=== PATIENT | male | born 1970 | race Caucasian/White ===

== ENCOUNTER 2021-11-07 02:27 | Emergency (ER) | payer MEDICARE, MEDICAID, SELFPAY ==
--- NOTE | ~2021-11-07 | CT_ITS ---
EXAMINATION: CT brain wo con DATE: 11/07/2021 02:59 INDICATION: Headache. TECHNIQUE: Computed tomography (CT) of the head was performed without intravenous contrast. The mA wa s adjusted according to patient size. Iterative reconstruction technique was employed. The dose-lengt h product was 681.00 mGy-cm. COMPARISON: None FINDINGS: There is an infarct in the left temporal parietal occipital region. There is no abnormal ma ss lesion or intracranial hemorrhage. The ventricles are normal in size. The orbits are normal. There are old fracture deformities of the nasal bones. There is mild mucosal thickening in the paranasal s inuses. The mastoid air cells are normal. IMPRESSION: 1. Age-indeterminate infarct in the left temporal parietal occipital region. Reviewed, dictated and finalized at location A.
[2021-11-07 02:24] VITALS: BP 137/73; PULSE 76; RESP 16; TEMP 36.3; O2SAT 98
--- NOTE | 2021-11-07 02:35 | ECG_ITS ---
Measurements Intervals [place] Rate: 81 P: 30 ME: 151 QRS: 39 QRSD: 90 T: 27 QT: 382 QTc: 445 Interpretive Statements SINUS RHYTHM POSSIBLE LEFT ATRIAL ENLARGEMENT BASELINE WANDER- I, II, III, AVR, AVL, AVF, V2, V4-V6 BORDERLINE ECG Electronically Signed On 11-07-2021 5:42:04 CDT by Johnathon Hair D.O.
--- NOTE | 2021-11-07 02:38 | ED.HA ---
HPI - Headache General Chief Complaint: Headache Stated Complaint: anguiano x 5 days refusing schizophrenic meds Time Seen by Provider: 11/07/21 02:35 Source: patient, EMS and RN notes reviewed History of Present Illness HPI Narrative: Patient was sent over from a [facility] and rehab facility. He has declined his Seroquel for approximately 2 weeks and night he was more combative with staff and also planing of a headache for 5 days. Staff is having time controlling the patient so they gave him IM Haldol and transported to the ER for further evaluation. Patient does report a headache for the past 5 days no clear aggravating or alleviating factors no nausea no vomiting denies focal numbness or weakness. Related Data Allergies Allergy/AdvReac Type Severity Reaction Status Date / Time No Known Allergies Allergy Verified 11/07/21 02:39 Review of Systems Review of Systems: CONSTITUTIONAL: Denies fever, chills, or sweats. EYES: Denies visual changes, redness, or discharge. ENT: Denies rhinorrhea, congestion, sore throat, or otalgia. CARDIOVASCULAR: Denies chest pain, palpitations, or edema. RESPIRATORY: Denies cough or dyspnea. GASTROINTESTINAL: Denies abdominal pain, nausea, vomiting, or diarrhea. GENITOURINARY: Denies dysuria or hematuria. SKIN: Denies rash or itching. MUSCULOSKELETAL: Denies back pain, joint pain, or myalgia. NEUROLOGIC: Denies numbness, dizziness, or weakness. PSYCHIATRIC: Denies anxiety or depression. ROS unobtainable: Yes other (Review of systems may be limited as patient was somnolent) [facility] Past Medical History Medical History (Updated 11/07/21 @ 04:03 by Benson Coelho MD) Schizophrenia Social History Social History (Updated 11/07/21 @ 02:47 by Benson Coelho MD) Living arrangements: other Additional living arrangements comments: Lives at [facility] rehab Exam Narrative: GENERAL: Well-appearing, well-nourished, and in no acute distress. HEAD: Normocephalic, atraumatic. EYES: PERRLA and EOMI. ENT: Nares clear, no rhinorrhea or epistaxis. Mucous membranes moist. NECK: Supple. No masses. No JVD CHEST: Clear to auscultation. No respiratory distress. No wheezes rales or rhonchi HEART: Regular rate and rhythm. No murmur heard. Normal peripheral pulses. ABDOMEN: Soft, nontender, nondistended, normal active bowel sounds. EXTREMITIES: Normal range of motion. No edema. SKIN: Warm, dry, no rash. NEURO: No focal deficits. Somnolent but answering questions and following commands PSYCH: Normal mood and affect. Course Reevaluation(s) Reevaluation #1: Patient remains sedated but arousable. Patient is appropriate for continued metabolization at his nursing and rehab facility which provided the sedation. Date: 11/07/21 Time: 04:00 Vital Signs Vital signs: Vital Signs Temperature 36.3 C L 11/07/21 02:24 Pulse Rate 76 11/07/21 02:24 Respiratory Rate 16 11/07/21 02:24 Blood Pressure 137/73 11/07/21 02:24 Pulse Oximetry 98 11/07/21 02:24 Temperature 36.3 C L 11/07/21 02:24 Pulse Rate 85 11/07/21 04:19 Respiratory Rate 15 11/07/21 04:19 Blood Pressure 135/69 11/07/21 04:19 Pulse Oximetry 96 11/07/21 04:19 MDM - Headache MDM Narrative Medical decision making narrative: H&P as above, vss, pt looks clinically well, exam without focal neurological deficits or evidence of significant trauma, labs with thrombocytopenia and hematuria hematuria may be related to catheterization, img without acute process, additional labs/img considered, symptomatic relief available as needed, on reevaluation pt continues to looks clinically well. Headache is not consistent with intracranial hemorrhage, mass meningitis, encephalitis., Patient's sedated state likely related to IM Haldol prior to transportation to the ER. Plan to tx/monitor as op w/ pcm f/u findings/plan discussed with pt, pt agree/comfortable with plan, return precautions given Lab Data Result diagram
--- NOTE | 2021-11-07 02:56 | PC.NURSE ---
Pt to CT via stretcher at this time
[2021-11-07 02:57] LABS: Hematocrit 33.6 % (42.0-52.0); Hemoglobin 11.3 g/dL (14.0-18.0); Mean Corpuscular HGB Conc 33.6 g/dl (32-36); Mean Corpuscular Hemoglobin 31.7 pg (26-34); Mean Corpuscular Volume 94.4 fl (80-100); Mean Platelet Volume 10.1 fl (7.4-10.4); Platelet Count Result 88 k/mm3 (150-375); Red Blood Count 3.56 M/mm3 (4.6-6.20); Red Cell Distribution Width 14.1 % (11.5-14.5); White Blood Count 3.7 K/mm3 (4.5-10.0)
[2021-11-07 03:06] LABS: Alanine Aminotransferase 41 U/L (6-50); Alkaline Phosphatase 164 U/L (38-126); Anion Gap 6 mmol/L (8-16); Aspartate Amino Transferase 74 U/L (17-59); Bilirubin,Total 0.7 mg/dL (0.2-1.3); Blood Urea Nitrogen 13 mg/dL (9-20); Calcium 8.1 mg/dL (8.4-10.2); Carbon Dioxide 25 mmol/L (22-30); Chloride 102 mmol/L (98-107); Estimated CRCL calculation 116 ml/min; Estimated Glomerular Filt Rate > 60; Glucose 186 mg/dL (65-110); Potassium 3.3 mmol/L (3.4-5.0); Sodium 133 mmol/L (137-145)
[2021-11-07 03:09] LABS: Anisocytosis 1+ (NORMAL); Band Neutrophils Percent 8 % (0-6); Eosinophils Absolute Manual 0.07 K/mm3 (0.02-0.5); Eosinophils Percent Manual 2 % (0-4); Lymphocytes Absolute Manual 1.03 K/mm3 (1.1-4.5); Monocytes Absolute Manual 0.44 K/mm3 (0.1-0.90); Monocytes Percent Manual 12 % (3-9); Neutrophils Absolute Manual 2.14 K/mm3 (1.3-6.7); Neutrophils Percent Manual 50 % (46-73); Ovalocytes 1+ (NORMAL); Platelet Estimate Decreased (Adequate); Total Cells Counted 100
[2021-11-07 03:37] LABS: Appearance Urine Clear (Clear); Bilirubin Urine Negative (Negative); Blood Urine 3+ (Negative); Glucose Urine UA Negative (Negative); Ketones Urine Negative (Negative); Leukocyte Esterase Ur Negative LEU/UL (Negative); Nitrate Urine Negative (Negative); Protein Urine 1+ mg/dL (Negative); Specific Grav Ur 1.015 (1.001-1.035); Urobilinogen Urine 0.2 mg/dL (<2.0)
[2021-11-07 03:41] LABS: Bacteria Urine Trace /hpf; Mucus Urine Rare /lpf; RBC Urine 51-75 /hpf (0-2)
[2021-11-07 03:44] LABS: Add Urine Microscopic? YES; Color Urine Dark Yellow (Yellow)
[2021-11-07 04:19] VITALS: BP 135/69; PULSE 85; RESP 15; O2SAT 96
--- NOTE | 2021-11-07 16:01 | PCCCNOTE ---
Late entry: Approached by bedside REJI Saavedra that patient did not have transportation back to facility. Patient is from [place], called to contact Courtney with no answer, called to main facility number no answer x2 attempts, called to Shanna who states that she is on vacation, she states that she will have someone to call me. Called back to main facility number and agriculture instructor advises that their van is on the way to [place] and they do not have additional van. Phone called received from Courtney she confirms that van is on the way to [place] but will see about family or alternatives. Courtney calls neonatal intensive care unit nurse back states that the sister has covid and cannot pick him up and mother works at [employer] and is at work and would not be able to pick him up until 6pm, there is no one else at the facility that can pick him up. Advised that we will give him a cab voucher. Courtney will have staff look out for him. Spoke with patient, he feels comfortable going in a cab, asked Dr. Pérez and he states that there is nothing physically wrong with him. Called back to Courtney, asked if she would like the ER note for the DIGITAL COLOR PRESS OPERATOR at the facility and she agrees that it would be helpful. Corporate Physical Security Supervisor to send. Cab voucher given to Bedside REJI Saavedra.
== END 2021-11-07 04:26 ==
PROVIDERS: Emergency Provider Emergency Medicine; PCP Internal Medicine
DX: R51.9 Headache, unspecified (principal); D69.6 Thrombocytopenia, unspecified; R31.9 Hematuria, unspecified; F20.9 Schizophrenia, unspecified; R94.31 Abnormal electrocardiogram [ECG] [EKG]
CPT/HCPCS: 36415; 51701; 70450; 80053; 81001; 85025; 93005; 99284

== ENCOUNTER 2021-11-07 10:22 | Emergency (ER) | payer MEDICARE, MEDICAID, SELFPAY ==
--- NOTE | ~2021-11-07 | CT_ITS ---
EXAMINATION: CTA brain carotid DATE: 11/07/2021 11:48 INDICATION: Cerebral vascular accident. TECHNIQUE: Computed tomographic angiography (CTA) of the head was performed without and with 100 mL O mnipaque 300 intravenous contrast. CTA of the neck was performed with intravenous contrast. Automated exposure control and iterative reconstruction technique were employed. The dose-length product was 1 714.27 mGy-cm. Maximum intensity projection and volume rendered 3D-reconstructions were created by denisse iyer technologist on a separate workstation. COMPARISON: Head CT 2:58 AM FINDINGS: HEAD CTA: There is an infarct in left temporal parietal occipital region. There is asymmetric enlarge ment of trigone of left lateral ventricle. There is no intracranial hemorrhage or abnormal mass lesio n. The orbits are normal. There are old fracture deformities of the nasal bones and left nasal proces s of maxilla. The mastoid air cells are normal. The paranasal sinuses are clear. The orbits are katie l. Right vertebral artery is dominant. There is no significant stenosis of basilar artery or the post erior cerebral arteries. There is no significant stenosis of the intracranial internal carotid arteri es or anterior or middle cerebral arteries. Anterior communicating artery is normal. Posterior commun icating arteries are not identified. There is no aneurysm. NECK CTA: There are no pathologically enlarged lymph nodes. There is no significant stenosis of the v ertebral arteries. There is plaque in the proximal internal carotid arteries. There is 0% stenosis of the proximal right internal carotid artery relative to normal distal artery lumen diameter (NASCET c riteria). There is 0% stenosis of the proximal left internal carotid artery relative to normal distal artery lumen diameter. There is severe cervical spondylosis. There is extensive dental disease. IMPRESSION: 1. Infarct in left temporal parietal occipital region. Mild asymmetric enlargement of trigone of left lateral ventricle suggests this finding may be chronic. 2. No aneurysm or significant intracranial arterial stenosis. 3. 0% stenosis of the proximal internal carotid arteries relative to normal distal artery lumen diame ters (NASCET criteria). 4. Extensive dental disease. Reviewed, dictated and finalized at location A. IMPRESSION: 1. Infarct in left temporal parietal occipital region. Mild asymmetric enlargem ent of trigone of left lateral ventricle suggests this finding may be chronic. 2. No aneurysm or significant intracranial arterial stenosis. 3. 0% stenosis of the proximal internal carotid arteries relative to normal dis abhi artery lumen diameters (NASCET criteria). 4. Extensive dental disease.
[2021-11-07 10:26] VITALS: PULSE 99; RESP 18; TEMP 36.4; O2SAT 100
--- NOTE | 2021-11-07 10:59 | ED.GENADULT ---
HPI - General Adult General Chief complaint: Recheck/Abnormal Lab/Rx Stated complaint: follow up ct Time Seen by Provider: 11/07/21 10:47 Source: RN notes reviewed History of Present Illness HPI narrative: Patient presents emergency department from [facility] via EMS for possible stroke. The patient has been having headaches for the past 5 days states headaches are in the posterior and superior scalp and worse with movement of his head. Patient also been noted to be refusing some of his medications at the facility. Patient states he does not want to take his medications because they make him sleepy. Patient been seen in emergency room last night had a CT scan is initially read as negative but was over read today as showing an age-indeterminate infarct after his PCP was called they had had the patient transferred back for further evaluation. Patient denies any numbness or weakness of the extremities denies any chest pain shortness of breath or any other symptoms Related Data Allergies Allergy/AdvReac Type Severity Reaction Status Date / Time No Known Allergies Allergy Verified 11/07/21 02:39 Review of Systems Review of Systems: Gen.: Denies fevers or chills Eyes: Denies eye pain or visual change ENT: Denies congestion Respiratory: Denies shortness of breath or cough CV: Denies chest pain or palpitations GI: Denies abdominal pain nausea, emesis or diarrhea Musculoskeletal: Denies back pain or muscle pain Neuro: See HPI Skin: Denies rash Except as documented, all other systems reviewed and negative [facility] Past Medical History Medical History Schizophrenia Social History Social History Additional living arrangements comments: Lives at [facility] Exam Narrative: APPEARANCE: No acute distress, nontoxic, resting in bed HEENT: Normocephalic, atraumatic, OMM, TMs clear bilaterally EYES: PERRL, EOMI NECK: Supple, nontender, full range of motion without pain, no meningismus RESPIRATORY: No respiratory distress, clear to auscultation bilaterally with no rhonchi wheezing or rales CARDIOVASCULAR: RRR s murmur ABDOMINAL: Soft, nontender, nondistended MUSCULOSKELETAL: Moves all extremities. No clubbing, cyanosis or edema. NEURO: A and O ?3, following commands, speech normal, cranial nerves II through XII grossly intact,muscle strength 5 out of 5 bilateral upper and lower extremities SKIN:: Warm, dry. Normal Color PSYCHIATRIC: Normal affect/mood Course Course Emergency Course: Reviewed old records Discussed with Dr. Dial recommends CTA of the head and neck Obtained records from [facility] the patient had a left temporal parietal intracranial hemorrhage. I called and reviewed the findings from the previous records with Dr. Kruegre who agrees that this is in the same area does appear consistent with an old stroke On updated clear for Dr. Ravi agrees with plan for discharge to facility Patient is remained awake alert in ED has been eating and drinking Discussed with patient results of workup and diagnosis. Discussed need for follow-up with primary care, proper use of medication, and reasons to return to the emergency department. Patient understands and agrees to current treatment plan Vital Signs Vital signs: Vital Signs Temperature 97.6 F 11/07/21 10:26 Pulse Rate 99 11/07/21 10:26 Respiratory Rate 18 11/07/21 10:26 Pulse Oximetry 100 11/07/21 10:26 Temperature 97.6 F 11/07/21 10:26 Pulse Rate 80 11/07/21 14:35 Respiratory Rate 18 11/07/21 14:35 Blood Pressure 125/78 11/07/21 14:35 Pulse Oximetry 99 11/07/21 14:35 Medical Decision Making MDM Narrative Medical decision making narrative: Patient's headache was not sudden or maximal in onset. There are no focal deficits on exam. Subarachnoid hemorrhage is felt to be unlikely at this time. There is no history of fever an
[2021-11-07 11:14] LABS: Basophils Percent Auto 0.7 % (0.2-1.2); Eosinophils Absolute Auto 0.2 K/mm3 (0-0.3); Eosinophils Percent Auto 5.3 % (0-4.4); Hematocrit 33.7 % (42.0-52.0); Hemoglobin 11.3 g/dL (14.0-18.0); Immature Granulocyte Absolute 0.01 K/mm3 (0.00-0.031); Immature Granulocyte Percent A 0.3 % (0-0.5); Lymphocytes Absolute Auto 0.53 K/mm3 (0.9-3.2); Lymphocytes Percent Auto 17.7 % (18.3-44.2); Mean Corpuscular HGB Conc 33.5 g/dl (32-36); Mean Corpuscular Volume 95.5 fl (80-100); Mean Platelet Volume 10.6 fl (7.4-10.4); Monocytes Absolute Auto 0.6 K/mm3 (0.1-0.6); Monocytes Percent Auto 19.7 % (2.6-8.5); Neutrophils Absolute Auto 1.7 K/mm3 (1.3-6.7); Neutrophils Percent Auto 56.3 % (45.5-73.1); Platelet Count Result 85 k/mm3 (150-375); Red Blood Count 3.53 M/mm3 (4.6-6.20); Red Cell Distribution Width 14.3 % (11.5-14.5)
[2021-11-07 11:25] LABS: Alanine Aminotransferase 36 U/L (6-50); Albumin Level 2.9 g/dL (3.5-5.1); Alkaline Phosphatase 170 U/L (38-126); Anion Gap 7 mmol/L (8-16); Aspartate Amino Transferase 63 U/L (17-59); Bilirubin,Total 0.7 mg/dL (0.2-1.3); Blood Urea Nitrogen 12 mg/dL (9-20); Calcium 7.8 mg/dL (8.4-10.2); Carbon Dioxide 25 mmol/L (22-30); Chloride 102 mmol/L (98-107); Estimated CRCL calculation 119 ml/min; Estimated Glomerular Filt Rate > 60; Glucose 201 mg/dL (65-110); Potassium 3.7 mmol/L (3.4-5.0); Sodium 134 mmol/L (137-145)
[2021-11-07 11:28] LABS: INR 1.6; Prothrombin Time 18.4 Seconds (11.1-14.7)
[2021-11-07 11:29] LABS: Partial Thromboplastin Time 42.8 SECONDS (22.3-36.8)
[2021-11-07 12:45] VITALS: BP 136/80; PULSE 89; RESP 18
[2021-11-07 14:35] VITALS: BP 125/78; PULSE 80; RESP 18; O2SAT 99
--- NOTE | 2021-11-07 15:05 | PC.NURSE ---
patient states he wants to leave ama because this nurse did not bring him the water he requested in a timely manner . patient further states that this nurse is to find him a ride home or he plans to alli
== END 2021-11-07 16:47 ==
PROVIDERS: Emergency Provider Emergency Medicine; PCP Internal Medicine
DX: R51.9 Headache, unspecified (principal)
CPT/HCPCS: 36415; 51701; 70450; 70496; 70498; 80053; 81001; 85025; 85610; 85730; 93005; 99284; Q9967

== ENCOUNTER 2022-08-18 08:43 | Inpatient (IN) | payer MEDICARE, MEDICAID, SELFPAY ==
[2022-08-18] VITALS (16 sets, daily range): BP systolic 145–175; BP diastolic 77–98; PULSE 57–140; RESP 16–32; TEMP 36.9–38.1; O2SAT 90–98; BMI 32.3
--- NOTE | ~2022-08-18 | XR_ITS ---
XR chest 1V portable 08/18/2022 10:28 Indication: Fever Procedure: AP portable chest Comparison: No prior studies for comparison. Findings: Bibasilar airspace disease. Cardiomegaly. Shallow inspiration. No significant effusion or p neumothorax. There is a catheter of unknown origin overlying the right upper chest, likely external t o the patient. Impression: 1: Bibasilar airspace disease may represent atelectasis or pneumonia. Reviewed, dictated and finalized at location B. PURPOSE CLERK Impression: 1: Bibasilar airspace disease may represent atelectasis or pneumonia.
--- NOTE | ~2022-08-18 | CT_ITS ---
EXAMINATION: CT brain wo con DATE: 08/18/2022 09:27 INDICATION: Altered mental status. TECHNIQUE: Computed tomography (CT) of the head was performed without intravenous contrast. The mA wa s adjusted according to patient size. Iterative reconstruction technique was employed. The dose-lengt h product was 681.00 mGy-cm. COMPARISON: Head CT 11/07/2021 FINDINGS: There is an old infarct in left temporal parietal region. There is no intracranial hemorrha ge, acute infarction, or abnormal intracranial mass lesion. The ventricles are normal in size. There is ex vacuo dilatation of trigone of left lateral ventricle. There are old fracture deformities of th e nasal bones and nasal processes of maxilla. The mastoid air cells are normal. The orbits are normal . IMPRESSION: 1. Old infarct in left temporal parietal region. Reviewed, dictated and finalized at location A. A PRODUCER
--- NOTE | 2022-08-18 08:51 | ECG_ITS ---
Measurements Intervals [place] Rate: 137 P: 60 SD: 141 QRS: 41 QRSD: 93 T: 14 QT: 308 QTc: 465 Interpretive Statements SINUS TACHYCARDIA BORDERLINE R WAVE PROGRESSION, ANTERIOR LEADS MINIMAL Q WAVES- INFERIOR LEADS ABNORMAL ECG COMPARED TO ECG 11/07/2021 02:48:52 SINUS TACHYCARDIA NOW PRESENT Electronically Signed On 08-18-2022 16:48:26 QUALITY AUDITOR by Johnathon Hair D.O.
--- NOTE | 2022-08-18 08:54 | ED.AMS ---
HPI - Altered Mental Status General Chief Complaint: Shortness of Breath/Dyspnea Stated Complaint: responsive to painful stimuli History of Present Illness HPI narrative: 52-year-old male presented emerged department from local custodial for altered mental status. Staff went to check on the patient and found him minimally responsive. Patient was found to be hypoxic on room air. Patient does have history of liver cirrhosis, substance abuse, CVA, alcoholism, schizophrenia. Related Data Home Medications Medication Instructions Recorded Confirmed Norvasc 5 mg PO DAILY 08/18/22 08/18/22 lacosamide 100 mg tablet (Vimpat) 100 mg PO BID 08/18/22 08/18/22 lactulose 10 gram/15 mL (15 mL) 20 g PO TID 08/18/22 08/18/22 oral solution melatonin 3 mg tablet 6 mg PO HS 08/18/22 08/18/22 meloxicam 7.5 mg tablet 7.5 mg PO DAILY 08/18/22 08/18/22 paliperidone 3 mg tablet,extended 3 mg PO QAM 08/18/22 08/18/22 release 24 hr (Invega) quetiapine 150 mg PO BID 08/18/22 08/18/22 rifaximin 550 mg tablet (Xifaxan) 550 mg PO BID 08/18/22 08/18/22 tamsulosin 0.4 mg capsule 0.4 mg PO BID 08/18/22 08/18/22 thiamine HCl (vitamin B1) 100 mg 100 mg PO DAILY 08/18/22 08/18/22 tablet Allergies Allergy/AdvReac Type Severity Reaction Status Date / Time No Known Allergies Allergy Verified 11/07/21 02:39 Review of Systems Review of Systems: ROS unobtainable: Yes unobtainable due to medical condition [facility] Past Medical History Medical History (Updated 08/18/22 @ 17:37 by Yaquelin Aguiar NP) Alcoholism BPH (benign prostatic hyperplasia) Cirrhosis CVA (cerebral vascular accident) Depression with anxiety Hypertension Polysubstance abuse Schizophrenia Tobacco abuse Surgical History Surgical History (Updated 08/18/22 @ 17:21 by Yaquelin Aguiar NP) H/O wrist surgery History of esophagogastroduodenoscopy (EGD) esophageal banding Family History Family History (Updated 08/18/22 @ 17:23 by Yaquelin Aguiar NP) Mother Hyperlipidemia Sibling Hyperlipidemia Social History Social History (Updated 08/18/22 @ 17:25 by Yaquelin Aguiar NP) Social History: the patient smokes anywhere from half a pack to a pack a cigarettes a day. the patient used to drink heavily but no longer drinks alcohol. The patient was a [facility]. He is single and has no children. He is use marijuana and methamphetamines in the past according to the sister the patient had a stroke due to using methamphetamines. His sister is a durable power civil attorney for healthcare. Code status full code Smoking packs per day: 0.5 Smoking cigarettes per day: 10.0 Years smoked: 320 Smoking pack-years: 160.00 Smoking status: Current every day smoker Tobacco type: cigarettes Alcohol intake: former Substance use: current Substance use type: marijuana Living arrangements: other Additional living arrangements comments: Lives at [facility] and [facility] Spiritual care concerns: No Exam Narrative: APPEARANCE: Ill-appearing, minimally responsive HEAD: normocephalic, atraumatic. EYES: PERRLA/EOMI, conjunctivae clear. NOSE: Normal no drainage EARS:TMS clear with good light reflex. THROAT: Pharynx clear, no exudate. NECK: Supple. No adenopathy, no masses. RESPIRATORY: Airway patent, respirations nonlabored. Clear to auscultation bilaterally, no rales, rhonchi, wheezing. CARDIOVASCULAR: Regular rate and rhythm without murmurs rubs or gallops. ABDOMINAL: Soft, nontender, nondistended, normal bowel sounds MUSCULOSKELETAL: Moves all extremities. Strength/ROM intact, No edema, No calf tenderness. NEURO: No focal deficit, confused, grossly intact SKIN: Warm, dry. Normal Color Course Course Emergency Course: 52-year-old male with minimally responsive. Patient is not following commands with patient is moving both upper extremities and his right lower extremity spontaneously. Patient was febrile upon arrival to the ED. Head CT was or
[2022-08-18] MEDS: SODIUM CHLORIDE 0.9% IV 2,000 ML 999 ML IV CONT (09:00)
[2022-08-18] MEDS: SODIUM CHLORIDE 0.9% IV 1,000 ML 999 ML IV CONT (09:00)
--- NOTE | 2022-08-18 09:19 | PCRCNOTE ---
PT. IS NOT AVAILABLE TO HAVE AN ABG DRAWN; GONE FROM THE ROOM.
[2022-08-18 09:22] LABS: Acetaminophen < 10 ug/mL (10-30); Ammonia 59 umol/L (9-30); Ethanol < 10 mg/dL (<10); Salicylate < 1.0 mg/dL (2-20)
[2022-08-18 09:24] LABS: Basophils Percent Auto 0.4 % (0.2-1.2); Eosinophils Percent Auto 0.6 % (0-4.4); Hematocrit 41.7 % (42.0-52.0); Hemoglobin 14.5 g/dL (14.0-18.0); Immature Granulocyte Absolute 0.03 K/mm3 (0.00-0.031); Immature Granulocyte Percent A 0.4 % (0-0.5); Immature Platelet Fraction Pct 3.5 % (0.9-11.2); Lymphocytes Absolute Auto 0.71 K/mm3 (0.9-3.2); Lymphocytes Percent Auto 9.9 % (18.3-44.2); Mean Corpuscular HGB Conc 34.8 g/dl (32-36); Mean Corpuscular Hemoglobin 32.7 pg (26-34); Mean Corpuscular Volume 94.1 fl (80-100); Monocytes Absolute Auto 0.7 K/mm3 (0.1-0.6); Monocytes Percent Auto 9.2 % (2.6-8.5); Neutrophils Absolute Auto 5.7 K/mm3 (1.3-6.7); Neutrophils Percent Auto 79.5 % (45.5-73.1); Platelet Count Result 89 k/mm3 (150-375); Red Blood Count 4.43 M/mm3 (4.6-6.20); Red Cell Distribution Width 13.8 % (11.5-14.5); White Blood Count 7.2 K/mm3 (4.5-10.0)
[2022-08-18 09:29] LABS: Alanine Aminotransferase 25 U/L (6-50); Alkaline Phosphatase 197 U/L (38-126); Anion Gap 5 mmol/L (8-16); Aspartate Amino Transferase 51 U/L (17-59); Bilirubin,Total 1.1 mg/dL (0.2-1.3); Blood Urea Nitrogen 5 mg/dL (9-20); Calcium 7.9 mg/dL (8.4-10.2); Carbon Dioxide 26 mmol/L (22-30); Chloride 105 mmol/L (98-107); Estimated Glomerular Filt Rate > 60; Glucose 181 mg/dL (65-110); Potassium 3.5 mmol/L (3.4-5.0); Sodium 136 mmol/L (137-145)
[2022-08-18 09:30] LABS: INR 1.4; Prothrombin Time 16.6 Seconds (11.1-14.7)
[2022-08-18 09:31] LABS: Partial Thromboplastin Time 32.2 SECONDS (22.3-36.8)
[2022-08-18 09:33] LABS: Lactic Acid Reflex 1.8 mmol/L (0.7-2.0)
[2022-08-18 09:52] LABS: Base Excess ABG -4.5 mEq/l (+/-2.0); Fractional Inspired Oxygen 21 %; HCO3 ABG 24.2 mEq/l (22.0-26.0); Oxygen Content ABG 18.3 %vol (16.0-22.0); Oxygen Saturation ABG 94.1 % (95.0-100.0); Oxyhemoglobin 92.2 % THb (90.0-100.0); PO2 ABG 84.6 mmHg (80.0-100.0); PO2 FiO2 Ratio Arterial Blood 4.03 %; Total Hemoglobin 14.1 g/dL (12.0-18.0)
[2022-08-18 09:53] LABS: pH ABG 7.217 (7.350-7.450)
[2022-08-18 09:54] LABS: Device NASAL CANNULA; Site Drawn RIGHT BRACHIAL
[2022-08-18 11:16] LABS: Appearance Urine Clear (Clear); Bacteria Urine None Seen /hpf; Bilirubin Urine Negative (Negative); Blood Urine 2+ (Negative); Color Urine Yellow (Yellow); Glucose Urine UA Negative (Negative); Ketones Urine Negative (Negative); Leukocyte Esterase Ur Negative LEU/UL (Negative); Nitrate Urine Negative (Negative); Protein Urine Negative (Negative); Specific Grav Ur 1.011 (1.001-1.035); Squamous Epithelial Cell Urine None seen /hpf (Few); Urobilinogen Urine 0.2 mg/dL (<2.0); WBC Urine 0-5 /hpf; pH Urine 5.5 (5.0-9.0)
[2022-08-18 11:22] LABS: Add Urine Microscopic? YES
[2022-08-18 11:38] LABS: Alveolar/Arterial O2 Gradient 26.8 mmHg; Base Excess ABG -4.3 mEq/l (+/-2.0); Fractional Inspired Oxygen 21 %; Oxygen Content ABG 17.7 %vol (16.0-22.0); Oxygen Saturation ABG 92.1 % (95.0-100.0); Oxyhemoglobin 90.7 % THb (90.0-100.0); PCO2 ABG 45.2 mmHg (35.0-45.0); PO2 ABG 68.8 mmHg (80.0-100.0); PO2 FiO2 Ratio Arterial Blood 3.28 %; Total Hemoglobin 13.9 g/dL (12.0-18.0); pH ABG 7.306 (7.350-7.450)
[2022-08-18 11:40] LABS: Expiratory Pressure 7 cmH2O; Inspiratory Pressure 14 cmH2O; Modified Allen's Test Pass; Site Drawn RIGHT RADIAL
[2022-08-18 11:41] LABS: Device BIPAP
[2022-08-18] MEDS: SODIUM CHLORIDE 0.9% IV 1,000 ML 125 ML IV CONT (13:11)
--- NOTE | 2022-08-18 13:19 | PM.IMHP ---
H&P: HPI History of Present Illness Date/Time: 08/18/22 13:19 Chief Complaint: altered mental status Narrative: this is a 52-year-old male patient who resides in a long-term facility. He has a history of alcoholism, liver disease, hypertension, and schizophrenia. The patient still continues to smoke cigarettes. The patient was found to have altered mental status at the nursing facility. He was minimally responsive. He does have a history of cirrhosis. Arterial blood gases pH 7.306, CO2 was 45.2, and PO2 was 68.8. Sodium is 136. Glucose is 181. Chest x-ray was read as bibasilar airspace disease may represent atelectasis or pneumonia. CT of the brain shows old infarct in the left temporoparietal region. Patient was started on normal saline, IV Tylenol, Rocephin and azithromycin. The patient had been on a BiPAP. The patient was very restless and was trying to pulled off his BiPAP. The patient is awake and restless. He also needed to urinate any urinated approximately 600 cc of clear yellow urine. The patient was requesting water. I took his BiPAP off because he was not keeping it on. Patient was placed on oxygen at 3 L and he was having O2 saturations at 3 L per nasal cannula. The patient calmed down after he was given some water and urinated. The patient also had a large bowel movement. His ammonia level was only slightly elevated at 59. The patient is being admitted to inpatient status on the date of service of 08/18/2022. Review of Systems Review of Systems: See HPI All systems reviewed & are unremarkable except as noted in HPI and below Constitutional: Constitutional: Reports as per HPI and Reports no additional constitutional complaints Eyes: Eyes: Reports as per HPI and Reports no additional eye complaints ENT: Reports system reviewed and no additional complaints, except as documented and Reports Normal hearing present Cardiovascular: Cardiovascular: Reports no additional cardiovascular complaints Respiratory: Respiratory: Reports no additional respiratory complaints and Reports no additional respiratory complaints Gastrointestinal: Gastrointestinal: Reports as per HPI and Reports no additional gastrointestinal complaints Musculoskeletal: Musculoskeletal: Reports no additional musculoskeletal complaints Integumentary/Breasts: Skin/Breast: Reports system reviewed and no additional complaints, except as docu and Reports as per HPI Neurologic: Reports system reviewed and no additional complaints, except as documented, Reports as per HPI and Reports Normal hearing present Psychiatric: Psychiatric: Reports no additional psychiatric complaints and Reports as per HPI Endocrine: Endocrine: Reports no additional endocrine complaints Hematologic/Lymphatic: Hematologic/Lymphatic: Reports no additional hematologic/lymphatic complaints Allergic/Immunologic: Allergic/Immunologic: Reports no additional allergic/immunologic complaints [facility] Past Medical History Medical History (Updated 08/18/22 @ 17:37 by Yaquelin Aguiar NP) Alcoholism BPH (benign prostatic hyperplasia) Cirrhosis CVA (cerebral vascular accident) Depression with anxiety Hypertension Polysubstance abuse Schizophrenia Tobacco abuse Surgical History Surgical History (Updated 08/18/22 @ 17:21 by Yaquelin Aguiar NP) H/O wrist surgery History of esophagogastroduodenoscopy (EGD) esophageal banding Family History Family History (Updated 08/18/22 @ 17:23 by Yaquelin Aguiar NP) Mother Hyperlipidemia Sibling Hyperlipidemia Social History Social History (Updated 08/18/22 @ 17:25 by Yaquelin Aguiar NP) Social History: the patient smokes anywhere from half a pack to a pack a cigarettes a day. the patient used to drink heavily but no longer drinks alcohol. The patient was a [facility]. He is single and has no children. He is use marijuana and methamphetamines in the past according to the sister the patient had a stroke
[2022-08-18] MEDS: ONDANSETRON INJ 4 MG/2 ML VIAL IV PUSH (14:28)
--- NOTE | 2022-08-18 16:09 | ADMGEN ---
This patient, Chester Dubose Jr., was admitted to IMU Room 204-01. Patient/family oriented to hospital policies and general routines including ID bracelet, bed and alarms, visiting hours, pain management, procedures, bathroom and other care routines, personal items, smoking policy, room service/diet, and visiting hours. Information on how to activate the Rapid Response Team has been discussed. Patient/Family are encouraged to report perceived risks to care and to ask questions if they do not understand what they are told or what they should do.
[2022-08-18] MEDS: methylPREDNISolone SOD SUCC 125 MG VIAL 60 MG IV PUSH (18:02)
[2022-08-18 18:20] LABS: Alveolar/Arterial O2 Gradient 23.1 mmHg; Base Excess ABG -0.9 mEq/l (+/-2.0); Fractional Inspired Oxygen 21 %; HCO3 ABG 24.5 mEq/l (22.0-26.0); Oxygen Content ABG 18.2 %vol (16.0-22.0); Oxygen Saturation ABG 94.6 % (95.0-100.0); Oxyhemoglobin 93.9 % THb (90.0-100.0); PCO2 ABG 43.3 mmHg (35.0-45.0); PO2 ABG 74.8 mmHg (80.0-100.0); PO2 FiO2 Ratio Arterial Blood 3.56 %; Total Hemoglobin 13.8 g/dL (12.0-18.0)
[2022-08-18 18:22] LABS: Modified Allen's Test Pass; Site Drawn RIGHT RADIAL
[2022-08-18] MEDS: IPRATROPIUM BR 0.02% INH SOLN 0.5 MG/2.5 ML VIAL INHALATION (20:38)
[2022-08-18] MEDS: ALBUTEROL SULFATE NEB 2.5 MG/3 ML INH INHALATION (20:38)
[2022-08-18] MEDS: QUEtiapine FUMARATE 100 MG TABLET PO (20:56)
[2022-08-18] MEDS: QUEtiapine FUMARATE 25 MG TABLET 50 MG PO (20:57)
[2022-08-18] MEDS: ACETAMINOPHEN 325 MG TABLET 650 MG PO (20:57)
[2022-08-18] MEDS: MELATONIN 3 MG TABLET 6 MG PO (20:57)
[2022-08-19] VITALS (23 sets, daily range): BP systolic 131–151; BP diastolic 54–90; PULSE 70–99; RESP 16–22; TEMP 36.4–38; O2SAT 93–98
[2022-08-19] MEDS: methylPREDNISolone SOD SUCC 125 MG VIAL 60 MG IV PUSH ×3 (00:48→13:25)
--- NOTE | 2022-08-19 02:27 | PCRCNOTE ---
0200 UPD not given upon RN request not to wake pt up. RN will call if pt needs UPD.
[2022-08-19 05:54] LABS: Basophils Percent Auto 0.2 % (0.2-1.2); Hemoglobin 13.1 g/dL (14.0-18.0); Immature Granulocyte Absolute 0.01 K/mm3 (0.00-0.031); Immature Granulocyte Percent A 0.2 % (0-0.5); Immature Platelet Fraction Pct 3.6 % (0.9-11.2); Lymphocytes Absolute Auto 0.68 K/mm3 (0.9-3.2); Lymphocytes Percent Auto 11.6 % (18.3-44.2); Mean Corpuscular HGB Conc 35.4 g/dl (32-36); Mean Corpuscular Hemoglobin 32.3 pg (26-34); Mean Corpuscular Volume 91.1 fl (80-100); Mean Platelet Volume 10.4 fl (7.4-10.4); Monocytes Absolute Auto 0.2 K/mm3 (0.1-0.6); Monocytes Percent Auto 2.6 % (2.6-8.5); Neutrophils Percent Auto 85.4 % (45.5-73.1); Platelet Count Result 73 k/mm3 (150-375); Red Blood Count 4.06 M/mm3 (4.6-6.20); Red Cell Distribution Width 13.2 % (11.5-14.5); White Blood Count 5.8 K/mm3 (4.5-10.0)
[2022-08-19 06:02] LABS: Alanine Aminotransferase 20 U/L (6-50); Albumin Level 3.6 g/dL (3.5-5.1); Alkaline Phosphatase 124 U/L (38-126); Anion Gap 5 mmol/L (8-16); Aspartate Amino Transferase 42 U/L (17-59); Bilirubin,Total 1.1 mg/dL (0.2-1.3); Blood Urea Nitrogen 8 mg/dL (9-20); Calcium 7.9 mg/dL (8.4-10.2); Carbon Dioxide 26 mmol/L (22-30); Chloride 106 mmol/L (98-107); Estimated CRCL calculation 157 ml/min; Estimated Glomerular Filt Rate > 60; Glucose 150 mg/dL (65-110); Lactate Dehydrogenase 217 U/L (120-246); Lipase 52 U/L (23-300); Magnesium 1.9 mg/dL (1.6-2.3); Potassium 3.5 mmol/L (3.4-5.0); Sodium 137 mmol/L (137-145)
[2022-08-19 06:03] LABS: Ammonia 85 umol/L (9-30)
[2022-08-19 06:12] LABS: Lactic Acid Reflex 1.3 mmol/L (0.7-2.0)
[2022-08-19] MEDS: ALBUTEROL SULFATE NEB 2.5 MG/3 ML INH INHALATION ×3 (08:21→21:00)
[2022-08-19] MEDS: IPRATROPIUM BR 0.02% INH SOLN 0.5 MG/2.5 ML VIAL INHALATION ×3 (08:21→21:00)
[2022-08-19 08:24] LABS: Glucose Point of Care 140 mg/dl (65-105)
[2022-08-19] MEDS: MELOXICAM 7.5 MG TABLET PO (09:36)
[2022-08-19] MEDS: LACTULOSE 20 GM/30 ML UDC PO ×3 (09:36→17:13)
[2022-08-19] MEDS: THIAMINE HCL 100 MG TABLET PO (09:36)
[2022-08-19] MEDS: rifAXIMin 550 MG TABLET PO ×2 (09:36→17:14)
[2022-08-19] MEDS: TAMSULOSIN HCL 0.4 MG CAPSULE PO ×2 (09:36→17:13)
[2022-08-19] MEDS: QUEtiapine FUMARATE 100 MG TABLET PO ×2 (09:37→17:14)
[2022-08-19] MEDS: QUEtiapine FUMARATE 25 MG TABLET 50 MG PO ×2 (09:37→17:14)
[2022-08-19] MEDS: amLODIPine BESYLATE 5 MG TABLET PO (09:38)
[2022-08-19] MEDS: LACOSAMIDE (*CRX) 100 MG TABLET PO ×2 (09:41→17:13)
[2022-08-19] MEDS: NICOTINE (*PBKC) 21 MG PATCH 1 PATCH TRANSDERM (09:49)
--- NOTE | 2022-08-19 16:55 | PM.IMPN ---
Progress Note: A&P Assessment and Plan (1) Acute respiratory failure: Code(s): J96.00 - Acute respiratory failure, unspecified whether with hypoxia or hypercapnia Status: Acute Assessment and Plan: Patient brought in to the ED from the long-term for altered mental status. ABG 7.22/61/84 on 2L. BiPAP started. CXR showing bibasilar airspace disease. He was having fevers but WBC and lactic normal. He was started on IV abx and nebs. No COVID, influenza testing done. Repeat ABG improved with pCO2 43 with normal pH. BiPAP removed and started on nasal cannula. Able to wean to room air. Consider DK but felt less likely. Started on steroids but no wheezing so will hold steroids for now. Continue with nebulizer treatments and Rocephin and azithromycin. Follow up on cultures. Check for COVID, etc. (2) Altered mental status: Code(s): R41.82 - Altered mental status, unspecified Status: Acute Assessment and Plan: Etiology unclear. Could be multifactorial from hepatic encephalopathy, PNA, hypercarbia and/or schizophrenia. Advance lactulose. monitor in IMU (3) Pneumonia: Code(s): J18.9 - Pneumonia, unspecified organism Status: Acute Assessment and Plan: As above. Continue current IV abx. Follow up on culures. (4) Serum ammonia increased: Code(s): E72.20 - Disorder of urea cycle metabolism, unspecified Status: Acute Assessment and Plan: Ammonia level 59 on admission. Ammonia level has climbed and he is confused. Unclear on baseline mental status. Continue his home thiamin, Xifaxan, and lactulose but will advance lactulose to see if this improves his mental status (only one BM listed). 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 Not on ASA or statin therapy. No allergies. LFTs okay. hx of GI bleed? Follow. (7) Hypertension: Code(s): I10 - Essential (primary) hypertension Status: Acute Assessment and Plan: Patient's blood pressure was reviewed on 08/19 Blood pressure reasonably well controlled. Will continue current medications. (8) Schizophrenia: Code(s): F20.9 - Schizophrenia, unspecified Status: Acute Assessment and Plan: Patient with schizophrenia on Invega. Also with depression treated with Vimpat and Seroquel. Continue the same (9) BPH (benign prostatic hyperplasia): Code(s): N40.0 - Benign prostatic hyperplasia without lower urinary tract symptoms Status: Acute Assessment and Plan: Stable. Bladder does not feel distended. Continue with tamsulosin (10) Tobacco abuse: Code(s): Z72.0 - Tobacco use Status: Acute Assessment and Plan: Nicotine patch. Subjective Date/time seen: 08/19/22 16:55 Interval history: 52yo male with alcoholism, cirrhosis, HTN and schizophrenia here from the nursing facility for altered mental status. He is alert but confused and unable to provide any type history. Review of Systems Review of Systems: ROS unobtainable: Yes unobtainable due to mental status Exam Narrative: Tm 100.6 98.6 133/64 84 22 96% ra Gen - NARD Chest - clear anteriorly and in the flanks, nml RR CV - RRR S1/S2. Tele showing no significant dysrhythmia Abd - Soft, NT/ND, Positive BS Ext - No pedal edema Neuro - Alert but confused. Skin - Warm and dry Objective Data Vital Signs Vital Signs: Vital Signs - 24 hr 08/18/22 18:00 08/18/22 19:42 08/18/22 20:42 Temperature 100.6 F H Pulse Rate 95 95 93 Respiratory Rate 20 16 Blood Pressure 145/77 H Pulse Oximetry 97 Oxygen Delivery Oxygen Flow Rate 08/18/22 20:43 08/18/22 20:44 03
[2022-08-19 19:43] LABS: Influenza A QL RT-PCR Negative (Negative); Influenza B QL RT-PCR Negative (Negative); RSV RNA, RT-PCR Negative (Negative); SARS-CoV-2 RNA PCR Negative
[2022-08-19] MEDS: MELATONIN 3 MG TABLET 6 MG PO (20:26)
[2022-08-20] VITALS (12 sets, daily range): BP systolic 139–160; BP diastolic 77–89; PULSE 74–103; RESP 16–22; TEMP 36.8–36.9; O2SAT 95–97
[2022-08-20 04:49] LABS: Hematocrit 37.1 % (42.0-52.0); Hemoglobin 13.4 g/dL (14.0-18.0); Immature Granulocyte Absolute 0.02 K/mm3 (0.00-0.031); Immature Granulocyte Percent A 0.3 % (0-0.5); Immature Platelet Fraction Pct 4.4 % (0.9-11.2); Lymphocytes Absolute Auto 0.78 K/mm3 (0.9-3.2); Lymphocytes Percent Auto 10.1 % (18.3-44.2); Mean Corpuscular HGB Conc 36.1 g/dl (32-36); Mean Corpuscular Hemoglobin 32.1 pg (26-34); Mean Corpuscular Volume 88.8 fl (80-100); Mean Platelet Volume 10.1 fl (7.4-10.4); Monocytes Absolute Auto 0.6 K/mm3 (0.1-0.6); Monocytes Percent Auto 7.2 % (2.6-8.5); Neutrophils Absolute Auto 6.4 K/mm3 (1.3-6.7); Neutrophils Percent Auto 82.4 % (45.5-73.1); Platelet Count Result 75 k/mm3 (150-375); Red Blood Count 4.18 M/mm3 (4.6-6.20); Red Cell Distribution Width 13.1 % (11.5-14.5); White Blood Count 7.7 K/mm3 (4.5-10.0)
[2022-08-20 04:57] LABS: Alanine Aminotransferase 22 U/L (6-50); Albumin Level 3.8 g/dL (3.5-5.1); Alkaline Phosphatase 120 U/L (38-126); Anion Gap 4 mmol/L (8-16); Aspartate Amino Transferase 41 U/L (17-59); Bilirubin,Total 0.8 mg/dL (0.2-1.3); Blood Urea Nitrogen 12 mg/dL (9-20); Calcium 8.3 mg/dL (8.4-10.2); Carbon Dioxide 25 mmol/L (22-30); Chloride 106 mmol/L (98-107); Estimated CRCL calculation 183 ml/min; Estimated Glomerular Filt Rate > 60; Glucose 143 mg/dL (65-110); Magnesium 2.2 mg/dL (1.6-2.3); Potassium 3.6 mmol/L (3.4-5.0); Sodium 135 mmol/L (137-145)
[2022-08-20 05:27] LABS: Hemoglobin A1C 5.3 % (<5.7)
[2022-08-20 06:03] LABS: Thyroid Stimulating Hormone Reflex 0.873 uIU/mL (0.465-4.68)
[2022-08-20] MEDS: IPRATROPIUM BR 0.02% INH SOLN 0.5 MG/2.5 ML VIAL INHALATION ×2 (07:20→13:05)
[2022-08-20] MEDS: ALBUTEROL SULFATE NEB 2.5 MG/3 ML INH INHALATION ×2 (07:20→13:05)
[2022-08-20] MEDS: amLODIPine BESYLATE 5 MG TABLET PO (09:09)
[2022-08-20] MEDS: TAMSULOSIN HCL 0.4 MG CAPSULE PO (09:09)
[2022-08-20] MEDS: THIAMINE HCL 100 MG TABLET PO (09:10)
[2022-08-20] MEDS: LACTULOSE 20 GM/30 ML UDC 30 GM PO ×2 (09:11→13:15)
[2022-08-20] MEDS: QUEtiapine FUMARATE 100 MG TABLET PO (09:12)
[2022-08-20] MEDS: QUEtiapine FUMARATE 25 MG TABLET 50 MG PO (09:12)
[2022-08-20] MEDS: NICOTINE (*PBKC) 21 MG PATCH 1 PATCH TRANSDERM (09:13)
[2022-08-20] MEDS: MELOXICAM 7.5 MG TABLET PO (09:13)
[2022-08-20] MEDS: LACOSAMIDE (*CRX) 100 MG TABLET PO (09:27)
[2022-08-20] MEDS: rifAXIMin 550 MG TABLET PO (10:07)
--- NOTE | 2022-08-20 13:58 | PM.DS ---
DS: Admitting Diagnosis Discharge Date 08/20/22 Admitting Diagnosis Altered mental status DS: Discharge Diagnosis Discharge Diagnosis (1) Acute respiratory failure: Code(s): J96.00 - Acute respiratory failure, unspecified whether with hypoxia or hypercapnia Status: Acute (2) Altered mental status: Code(s): R41.82 - Altered mental status, unspecified Status: Acute (3) Pneumonia: Code(s): J18.9 - Pneumonia, unspecified organism Status: Acute (4) Serum ammonia increased: Code(s): E72.20 - Disorder of urea cycle metabolism, unspecified Status: Acute (5) Cirrhosis: Code(s): K74.60 - Unspecified cirrhosis of liver Status: Acute (6) CVA (cerebral vascular accident): Code(s): I63.9 - Cerebral infarction, unspecified Status: Acute (7) Hypertension: Code(s): I10 - Essential (primary) hypertension Status: Acute (8) Schizophrenia: Code(s): F20.9 - Schizophrenia, unspecified Status: Acute (9) BPH (benign prostatic hyperplasia): Code(s): N40.0 - Benign prostatic hyperplasia without lower urinary tract symptoms Status: Acute (10) Tobacco abuse: Code(s): Z72.0 - Tobacco use Status: Acute DS: Summary Hospital Course Reason for hospitalization: 52yo male with alcoholism, cirrhosis, HTN and schizophrenia here from the nursing facility for altered mental status. Please see H&P for details. Hospital Course: Patient brought in to the ED from the shelter for altered mental status. ABG 7.22/61/84 on 2L. BiPAP started. CXR showing bibasilar airspace disease. He was having fevers but WBC and lactic normal. He was started on IV abx and nebs. COVID, influenza and RSV testing was negative. Repeat ABG improved with pCO2 43 with normal pH. BiPAP removed and started on nasal cannula. Able to wean to room air. Started on steroids but no wheezing so steroids stopped. BCx remained negative. For the altered mental status, etiology multifactorial from hepatic encephalopathy, PNA, hypercarbia and/or schizophrenia. Ammonia level 59 on admission. Lactulose was advanced. We continued his home thiamin and Xifaxan. His mental status improved and felt back to his baseline. Head CT did show old left temporal parietal lobe CVA. Not on ASA or statin therapy. No allergies. LFTs okay. Aspirin and lipitor added. Patient with schizophrenia on Invega. Also with depression treated with Vimpat and Seroquel. We did not have Invega here. He was educated about the benefits of smoking cessation although unclear if he fully understands his risk of smoking. He overall did well was able be discharged back to the facility on 08/20/2022. Status at Discharge Cognitive/behavioral status at discharge: Stable Time Spent with Patient Time attestation: Total time spent providing and/or coordinating discharge services: 35 minutes Time spent: Greater than 30 minutes Exam Narrative: AF 98.5 139/83 99 18 96% ra Gen - NARD Chest - few basilar crackles o/w clear. CV - RRR S1/S2 +murmur left USB. Tele showing no significant dysrhythmia Abd - Soft, NT/ND, Positive BS Ext - No pedal edema Neuro - Alert but confused. Tangential thought process. The TV was talking with him recently but not now. Skin - Warm and dry DS: Data Data Completed and Pending Labs on day of discharge: Labs from last 24 hours 08/20/22 08/20/22 08/20/22 04:30 04:30 04:30 WBC RBC Hgb Hct MCV MCH MCHC RDW Plt Count MPV Immature Gran % (Auto) Neut % (Auto) Lymph % (Auto) [place] % (Auto) Eos % (Auto) Baso % (Auto) Lymph # (Auto) [place] # (Auto) Eos # (Auto) Baso # (Auto) Abs Immat Gran (auto) Absolute Neuts (auto) Absolute Nucleated RBC Nucleated RBC % % Immature Plt Fraction Sodium 135 L Potassium 3.6 Chloride 106 Carbon Dioxide 25 Anion Gap 4 L BUN 12
== END 2022-08-20 15:10 | DRG 193 ==
LOC: ANHED 10:18 → ANHIMU 10:54
PROVIDERS: Nurse Practitioner; Admitting Provider Family Medicine; Emergency Provider Emergency Medicine; PCP Internal Medicine; Visit Provider Internal Medicine
DX: J18.9 Pneumonia, unspecified organism (principal); J96.01 Acute respiratory failure with hypoxia; J96.02 Acute respiratory failure with hypercapnia; E72.20 Disorder of urea cycle metabolism, unspecified; K76.82 Hepatic encephalopathy; K74.60 Unspecified cirrhosis of liver; I10 Essential (primary) hypertension; F20.9 Schizophrenia, unspecified; N40.0 Benign prostatic hyperplasia without lower urinary tract symptoms; K70.30 Alcoholic cirrhosis of liver without ascites; F10.20 Alcohol dependence, uncomplicated; Z20.822 Contact with and (suspected) exposure to COVID-19; F41.8 Other specified anxiety disorders; F17.210 Nicotine dependence, cigarettes, uncomplicated; Z86.73 Personal history of transient ischemic attack (TIA), and cerebral infarction without residual deficits
CPT/HCPCS: 36415; 36600; 51701; 70450; 71045; 80053; 80307; 81001; 82140; 82805; 82948; 83036; 83605; 83615; 83690; 83735; 84443; 85025; 85055; 85610; 85730; 87040; 87637; 93005; 94640; 96361; 96375; 99285; A9270; J0131; J0456; J0696; J2405; J2930; J7030

== ENCOUNTER 2024-06-19 18:50 | Emergency (ER) | payer MEDICARE, MEDICAID, SELFPAY ==
--- NOTE | ~2024-06-19 | XR_ITS ---
Portable chest x-ray Comparison: 08/18/2022 Clinical History: Palpitations Findings: Lungs are clear, without focal consolidation or pleural effusion. Cardiomediastinal silho uette is stable. Bones and soft tissues are unremarkable. Impression: Clear lungs. Reviewed, dictated and finalized at [facility]. TOR SUPERVISOR Impression: Clear lungs.
[2024-06-19 20:01] VITALS: BP 154/71; PULSE 90; RESP 20; TEMP 36.8; O2SAT 97
[2024-06-19 23:47] VITALS: BP 182/90; PULSE 76; RESP 18; O2SAT 99
--- NOTE | 2024-06-20 01:29 | ECG_ITS ---
Test Date: 2024-06-20 01:56:06 Measurements Intervals [place] Rate: 74 P: 23 NE: 166 QRS: 48 QRSD: 90 T: 52 QT: 400 QTc: 444 Interpretive Statements SINUS RHYTHM SEPTAL MYOCARDIAL INFARCTION , OF INDETERMINATE AGE [40+ ms Q WAVE IN V1/V2] No previous ECG available for comparison Electronically Signed On 06-23-2024 14:54:27 [employer]ESSION[employer] by Hari James M.D.
[2024-06-20 01:59] VITALS: PULSE 82; RESP 18; O2SAT 99
--- NOTE | 2024-06-20 02:12 | ED.GENADULT ---
HPI - General Adult General Chief complaint: Unspecified Stated complaint: REPORTED SOB. NO DISTRESS CURRENTLY Time Seen by Provider: 06/20/24 01:18 History of Present Illness HPI narrative: this is a 54-year-old male presenting from the residential for feeling weird. Patient says he was out having a smoke when all the sudden he felt like something was wrong. He felt like he was going to . He says he became short of breath during this time. It then resolved on its own. He has a history of panic attacks but says this is not a panic attack. He is otherwise denying fevers chills chest pain difficulty breathing abdominal pain or urinary symptoms at this time. He denies alcohol or drug use. Related Data Home Medications ?Medication ?Instructions ?Recorded ?Confirmed ?Last Taken ?Type Norvasc 5 mg PO DAILY 08/18/22 08/18/22 08/18/22 History lacosamide 100 mg tablet (Vimpat) 100 mg PO BID 08/18/22 08/18/22 08/18/22 History melatonin 3 mg tablet 6 mg PO HS 08/18/22 08/18/22 08/17/22 History meloxicam 7.5 mg tablet 7.5 mg PO DAILY 08/18/22 08/18/22 08/18/22 History paliperidone 3 mg tablet,extended 3 mg PO QAM 08/18/22 08/18/22 08/18/22 History release 24 hr (Invega) 0800 quetiapine 150 mg PO BID 08/18/22 08/18/22 08/18/22 History rifaximin 550 mg tablet (Xifaxan) 550 mg PO BID 08/18/22 08/18/22 08/18/22 History tamsulosin 0.4 mg capsule 0.4 mg PO BID 08/18/22 08/18/22 08/18/22 History thiamine HCl (vitamin B1) 100 mg 100 mg PO DAILY 08/18/22 08/18/22 08/18/22 History tablet Allergies Allergy/AdvReac Type Severity Reaction Status Date / Time No Known Allergies Allergy Verified 06/19/24 20:05 [facility] Past Medical History Medical History (Updated 06/20/24 @ 05:37 by Maximilian House MD) CVA (cerebral vascular accident) Depression with anxiety Hypertension Tobacco abuse Polysubstance abuse Alcoholism BPH (benign prostatic hyperplasia) Cirrhosis Schizophrenia Surgical History Surgical History (Updated 08/18/22 @ 17:21 by Yaquelin Aguiar NP) H/O wrist surgery History of esophagogastroduodenoscopy (EGD) esophageal banding Family History Family History (Updated 08/18/22 @ 17:23 by Yaquelin Aguiar NP) Mother Hyperlipidemia Sibling Hyperlipidemia Social History Social History (Updated 08/18/22 @ 17:25 by Yaquelin Aguiar NP) Social History: the patient smokes anywhere from half a pack to a pack a cigarettes a day. the patient used to drink heavily but no longer drinks alcohol. The patient was a [facility]. He is single and has no children. He is use marijuana and methamphetamines in the past according to the sister the patient had a stroke due to using methamphetamines. His sister is a durable power mergers and acquisitions attorney for healthcare. Code status full code Smoking packs per day: 0.5 Smoking cigarettes per day: 10.0 Years smoked: 320 Smoking pack-years: 160.00 Smoking status: Current every day smoker Tobacco type: cigarettes Alcohol intake: former Substance use: current Substance use type: marijuana Living arrangements: other Additional living arrangements comments: Lives [facility] Spiritual care concerns: No Exam Narrative: APPEARANCE: No apparent distress. Resting comfortably Head: atraumatic. EYES: EOMI, NOSE: Atraumatic NECK: Trachea midline RESPIRATORY: No increased rate of breathing, clear to auscultation CARDIOVASCULAR: RRR, no peripheral edema ABDOMINAL: Non-distended soft nontender MUSCULOSKELETAl: No obvious deformities NEURO: Alert. Moving 4/4 extremities SKIN:: Warm, dry. Normal color PSYCHIATRIC: Normal affect Course Vital Signs Vital signs: Vital Signs Temperature 98.3 F 06/19/24 20:01 Pulse Rate 90 06/19/24 20:01 Respiratory Rate 20 06/19/24 20:01 Blood Pressure 154/71 H 06/19/24 20:01 Pulse Oximetry 97 06/19/24 20:01 Oxygen Delivery Room Air 06/19/24 20:01 Temperature 98.3 F 06/19/24 20:01 Pulse Rate 77 06/20/24 03:34 Respiratory Rate 18 06/20/24 03:34 Blood Pressure 156/83 H 06/20/24 03:34 Pulse Oximetry 98 06/20/24 03:34 Oxygen Delivery Room Air 06/19/24 20:01 Medical Decision Making MDM Narrative Medical decision making narrative: -Course: 54-year-old male presenting for feeling funny and shortness of breath. Workup was negative. patient was monitored in the ED overnight and has been sleeping throughout his stay. no recurrence of his episode. patient discharged. given return precautions -DDX includes but is not limited to: ACS pneumonia pneumothorax, anxiety/panic attack, viral syndrome -Independent interpretation of studies: labs imaging reviewed Independent EKG interpretation: Rhythm [sinus], Rate [74], [place] -[normal], [place] -[normal], QRS [narrow], QTC [normal], T waves -[negative for concerning inversions], ST Segments - [Negative for concerning elevations] Final interpretations: [Normal Sinus Rhythm] -Shared decision making /Disposition:discharged. Vital Signs Vital Signs: Vital Signs Temperature 98.3 F 06/19/24 20:01 Pulse Rate 90 06/19/24 20:01 Respiratory Rate 20 06/19/24 20:01 Blood Pressure 154/71 H 06/19/24 20:01 Pulse Oximetry 97 06/19/24 20:01 Oxygen Delivery Room Air 06/19/24 20:01 Temperature 98.3 F 06/19/24 20:01 Pulse Rate 77 06/20/24 03:34 Respiratory Rate 18 06/20/24 03:34 Blood Pressure 156/83 H 06/20/24 03:34 Pulse Oximetry 98 06/20/24 03:34 Oxygen Delivery Room Air 06/19/24 20:01 Lab Data 06/20/24 02:05 06/20/24 02:05 Labs: Lab Results 06/20/24 06/20/24 06/20/24 Range/Units 02:05 02:17 04:39 WBC 4.4 L (4.5-10.0) K/mm3 RBC 4.41 L (4.6-6.20) M/mm3 Hgb 14.8 (14.0-18.0) g/dL Hct 41.7 L (42.0-52.0) % MCV 94.6 (80-100) fl MCH 33.6 (26-34) pg MCHC 35.5 (32-36) g/dl RDW 13.8 (11.5-14.5) % Plt Count 81 L (150-375) k/mm3 MPV 10.5 H (7.4-10.4) fl Immature Gran % (Auto) 0.2 (0-0.5) % Neut % (Auto) 69.3 (45.5-73.1) % Lymph % (Auto) 21.1 (18.3-44.2) % [place] % (Auto) 7.6 (2.6-8.5) % Eos % (Auto) 1.1 (0-4.4) % Baso % (Auto) 0.7 (0.2-1.2) % Lymph # (Auto) 0.92 (0.9-3.2) K/mm3 [place] # (Auto) 0.3 (0.1-0.6) K/mm3 Eos # (Auto) 0.1 (0-0.3) K/mm3 Baso # (Auto) 0.0 (0.0-0.1) K/mm3 Abs Immat Gran (auto) 0.01 (0.00-0.031) K/mm3 Absolute Neuts (auto) 3.0 (1.3-6.7) K/mm3 Absolute Nucleated RBC 0.000 (0.0-0.012) K/mm3 Nucleated RBC % 0.0 (0.0-0.2) % % Immature Plt Fraction 3.0 (0.9-11.2) % Sodium 139 (137-145) mmol/L Potassium 3.6 (3.4-5.0) mmol/L Chloride 110 H (98-107) mmol/L Carbon Dioxide 26 (22-30) mmol/L Anion Gap 3 L (4-12) mmol/L BUN 6 L D (9-20) mg/dL Creatinine 0.70 (0.7-1.3) mg/dL Estim Creat Clear Calc 115 ml/min Estimated GFR > 60 (59 - ) Glucose 105 (65-110) mg/dL Calcium 9.0 (8.4-10.2) mg/dL Total Bilirubin 1.7 H (0.2-1.3) mg/dL AST 49 (17-59) U/L ALT 27 (6-50) U/L Alkaline Phosphatase 118 (38-126) U/L Troponin I < 0.012 < 0.012 (0.000-0.034) ng/mL NT-Pro-B Natriuret Pep 26 (19.9-100) pg/mL Total Protein 7.0 (6.3-8.2) g/dL Albumin 4.0 (3.5-5.1) g/dL Urine Opiates Screen Negative (Negative) Urine Methadone Screen Negative (Negative) Ur Barbiturates Screen Negative (Negative) Ur Phencyclidine Scrn Negative (Negative) Ur Amphetamine Screen Negative (Negative) U Benzodiazepines Scrn Negative (Negative) Urine Cocaine Screen Negative (Negative) U Cannabinoids Screen Positive A (Negative) Ethyl Alcohol < 10 (<10) mg/dL Influenza A (RT-PCR) Negative (Negative) Influenza B (RT-PCR) Negative (Negative) RSV (RT-PCR) Negative (Negative) SARS-CoV-2 RNA (RT-PCR) Negative (Negative) Blood Type O Positive Antibody Screen Negative Discharge Plan Discharge Clinical Impression: Dizziness and giddiness Patient Disposition: Home, Self-Care Condition: Stable Instructions: Antibiotic Form, Dyspnea (ED) Additional Instructions: You were seen in the emergency department after having a strange sensation. Thankfully, your workup for serious illness was negative. Please follow up with your PCP for further management. Return if you develop any new or worsening symptoms. Patient Language: Welsh Prescriptions: No Action paliperidone [Invega] 3 mg Tablet Extended Release 24 Hr 3 mg PO QAM thiamine HCl (vitamin B1) 100 mg Tablet 100 mg PO DAILY melatonin 3 mg Tablet 6 mg PO HS meloxicam 7.5 mg Tablet 7.5 mg PO DAILY tamsulosin 0.4 mg Capsule 0.4 mg PO BID lacosamide [Vimpat] 100 mg Tablet 100 mg PO BID Xifaxan 550 mg Tablet 550 mg PO BID Norvasc 5 mg PO DAILY quetiapine 150 mg PO BID azithromycin 250 mg tablet 250 mg PO DAILY 2 Days Qty: 2 0RF cefdinir 300 mg capsule 300 mg PO Q12H 4 Days Qty: 8 0RF aspirin 81 mg capsule 81 mg PO DAILY Qty: 30 0RF atorvastatin [Lipitor] 40 mg tablet 40 mg PO HS Qty: 1 0RF lactulose 10 gram/15 mL (15 mL) Solution 30 g PO TID Qty: 600 0RF Follow-up/Referrals: Trav,MD Toni [Primary Care Provider] -
[2024-06-20 02:16] LABS: Basophils Percent Auto 0.7 % (0.2-1.2); Eosinophils Absolute Auto 0.1 K/mm3 (0-0.3); Eosinophils Percent Auto 1.1 % (0-4.4); Hematocrit 41.7 % (42.0-52.0); Hemoglobin 14.8 g/dL (14.0-18.0); Immature Granulocyte Absolute 0.01 K/mm3 (0.00-0.031); Immature Granulocyte Percent A 0.2 % (0-0.5); Lymphocytes Absolute Auto 0.92 K/mm3 (0.9-3.2); Lymphocytes Percent Auto 21.1 % (18.3-44.2); Mean Corpuscular HGB Conc 35.5 g/dl (32-36); Mean Corpuscular Hemoglobin 33.6 pg (26-34); Mean Corpuscular Volume 94.6 fl (80-100); Mean Platelet Volume 10.5 fl (7.4-10.4); Monocytes Absolute Auto 0.3 K/mm3 (0.1-0.6); Monocytes Percent Auto 7.6 % (2.6-8.5); Neutrophils Percent Auto 69.3 % (45.5-73.1); Platelet Count Result 81 k/mm3 (150-375); Red Blood Count 4.41 M/mm3 (4.6-6.20); Red Cell Distribution Width 13.8 % (11.5-14.5); White Blood Count 4.4 K/mm3 (4.5-10.0)
[2024-06-20 02:26] LABS: Alanine Aminotransferase 27 U/L (6-50); Alkaline Phosphatase 118 U/L (38-126); Anion Gap 3 mmol/L (4-12); Aspartate Amino Transferase 49 U/L (17-59); Bilirubin,Total 1.7 mg/dL (0.2-1.3); Blood Urea Nitrogen 6 mg/dL (9-20); Carbon Dioxide 26 mmol/L (22-30); Chloride 110 mmol/L (98-107); Estimated CRCL calculation 115 ml/min; Estimated Glomerular Filt Rate > 60; Glucose 105 mg/dL (65-110); Sodium 139 mmol/L (137-145)
[2024-06-20 02:34] LABS: Potassium 3.6 mmol/L (3.4-5.0)
[2024-06-20 02:37] LABS: Troponin I < 0.012 ng/mL (0.000-0.034)
[2024-06-20 02:45] LABS: Ethanol < 10 mg/dL (<10)
[2024-06-20 02:46] LABS: Amphetamine Screen Urine Negative (Negative); Barbiturate Screen Urine Negative (Negative); Benzodiazepines Screen Urine Negative (Negative); Cannabinoid Screen Urine Positive (Negative); Cocaine Screen Urine Negative (Negative); Methadone Screen Urine Negative (Negative); Opiate Screen Urine Negative (Negative); Phencyclidine Screen Urine Negative (Negative)
[2024-06-20 02:49] LABS: Influenza A QL RT-PCR Negative (Negative); Influenza B QL RT-PCR Negative (Negative); RSV RNA, RT-PCR Negative (Negative); SARS-CoV-2 RNA PCR Negative (Negative)
[2024-06-20 02:57] LABS: NT Pro B Type Natriuretic Pept 26 pg/mL (19.9-100)
[2024-06-20 03:34] VITALS: BP 156/83; PULSE 77; RESP 18; O2SAT 98
[2024-06-20 05:04] LABS: Troponin I < 0.012 ng/mL (0.000-0.034)
[2024-06-20 06:00] VITALS: BP 160/75; PULSE 74; RESP 18; O2SAT 100
--- OUTSIDE RECORDS SUMMARY | 2024-06-27 04:49 | XMS_ITS | Encounter Summary ---
Author Organization [facility] Address [address] [facility] [place] [address] Care Team Providers Care Contract Design Agent Name Role Phone Unavailable Primary Care Provider Unavailabl e Reason for Referral * Radiology Services (Routine) - Closed Specialty Diagnoses / Procedures Referred By Contact Referred To Contact Interventional Radiology Diagnoses Cerebral atherosclerosis Procedures IR CAROTID CEREBRAL ANGIOGRAM Summer Villagomez MD [address] [place] [address] [facility] [address] [place] [address] Referral ID Status Reason Start Date Expiration Date Visits Re quested Visits Authorized [id number] Closed 11/07/2021 10/20/2022 1 1 Reason for Visit * Reason Onset Date Comments Order 10/20/2021 Encounter Details Date Type Department Care Team (Late st Contact Info) Description 10/20/2021 Telephone [facility] [address] [facility] [place] [phone] Jill Galindo LPN [address] [place] [address] Order Social History Tobacco Use Types Packs/Day Years Used Date Smoking Tobacco: Former Cigarettes Smokeless Tobacco: Never Alcohol Use Standard Drinks/Week Comments Yes 0 (1 standard drink = 0.6 oz pur e alcohol) used EtOH today AUDIT-C Answer Date Recorded Q1: How often do you have a drink containing alc ohol? Monthly or less 08/26/2021 Q2: How many drinks containi ng alcohol do you have on a typical day when you are drinking? 1 or 2 08/26/2021 Q3: How often do you have si x or more drinks on one occasion? Never 08/26/2021 Hunger Vital Sign Answer Date Recorded Within the past 12 months, y ou worried that your food would run out before you got the money to buy more. Never true 08/26/19 22 Within the past 12 months, t he food you bought just didn't last and you didn't have money to get more. Never true 08/25/2021 Sex and Gender Information Value Date Recorded Sex Assigned at Not on file Gender Identity Not on file Sexual Orientation Not on file documented as of this encounter Functional Status Functional Status Response Date of Assess ment Is person deaf or have serious hearing difficult y? No 09/13/2021 Is person blind or have serious difficulty seein g? No 09/13/2021 Does person have serious dif ficulty walking/climbing stairs? No 09/13/2021 Does person have difficulty dressing/bathing? No 09/13/2021 Does person have difficulty doing errands alone? Yes 09/13/2021 Cognitive Status Response Date of Assessm ent Does person have difficulty concentrating/remembering/making decisions? Yes 09/13/2021 documented as of this encounter Plan of Treatment Upcoming Encounters Date Type Department Care Team (Late st Contact Info) Description 08/25/2024 1:10 PM CDT Documentation [facility] [address] [phone] 08/25/2024 1:20 PM CDT Office Visit [address] [phone] Migue Reeder MD [address] [place] [phone] documented as of this encounter Results * IR CAROTID CEREBRAL ANGIOGRAM (11/17/2021 11:06 AM CDT) Anatomical Region Laterality Modality Head X-Ray Angiograph y 11/17/2021 1:01 PM CDT Impressions 11/22/2021 8:45 AM CDT Impression: 1.Azygous anterior cerebral artery which is a normal variant 2.No underling vascularabnormalitywas visualized as the etiology of intraparenchymal hemorrhage Dr. SUMMER Londono have personally reviewed and interpreted this examination/study. This report was electronically signed by SUMMER VILLAGOMEZ ??on 11/22/2021 8:45 AM . Narrative 11/22/2021 8:45 AM CDT Procedure: Cerebral angiogram 11/17/2021 Comparison study: None History: The patient a 51 years -year-old Male with hx of left parietal IPH. He is here for a diagnostic cerebral catheter angiogram toevaluate for possible underlying vascular abnormality. Real Property Appraiser: Rivera Villagomez Orthodontist Vice President(s): Ida Arevalo Vessels: Ultrasound guided access of right radial artery Right radial artery angiogram Right common carotid angiogram: Cervical and Cerebral Right internal carotid artery angiogram: Cerebral Left common carotid angiogram: Cervical and Cerebral Left internal carotid artery angiogram: Cerebral Left external carotid artery angiogram: Cerebral Right subclavian artery angiogram: Cervical and Cerebral Right vertebral artery angiogram: Cerebral Anesthesia: I, Dr Summer Villagomez was present and performed/supervised the entire procedure. Moderate sedation on this adult patient was ordered by me, administered intravenously in my presence and monitored by the procedure nurse as an independent trained observer who was present during the procedure. The following parameters were monitored: oxygen saturation, heart rate, blood pressure, and response to care. Intra-service sedation start time was 1105 and end time was 1029 during which I was present. Total physician intra-service sedation time was 36 minutes. For details on sedation patient evaluation, please review the evaluation in [facility]. For details on monitored clinical parameters during the intra-service sedation time, please review the procedure nurse documentation in [facility]. Procedural detail: The risks, benefits, and alternatives to procedure were discussed in detail with the patient and his family. These included but were not limited to the risk of blood loss, vessel injury, stroke, renal injury, and contrast allergy. The patient was brought to the biplane angiography suite where he underwent prep and drape procedures. Limited ultrasound of the right radial artery demonstrated a patent vessel. A chavis scale image was documented. The right radial artery was accessed using a micropuncture needle. The needle entry was documented. Following a series of exchanges, a 5 [place] Slender Glidesheath was placed in the right radial artery. Heparin 3,000 units, verapamil 2.5 mg and nitroglycerin 300 mcg were given through the sheath for vasospasm prophylaxis. A 5 [place] Cain 2 catheter was navigated into the aortic arch along with Glidewire 0.035. The catheter was used to select left common carotid artery followed by the left internal carotid artery and a cerebral angiogram was obtained. The catheter was withdrawn to the common carotid artery and then used to select the external carotid artery and a cerebral angiogram was obtained. The catheter was returned to the arch and used to select the brachiocephalic artery followed by the right common carotid artery and finally the right internal carotid artery and a cerebral angiogram was obtained. The catheter was returned to the brachiocephalic artery and used to select the right subclavian artery and a cervical angiogram was obtained, then used to select the right vertebral artery and a cerebral angiogram was obtained. All catheters and sheaths were removed from the arterial system. Hemostasis was achieved using a radial band. Hemostasis was immediate at the end of the closure procedure. The radial pulse was palpable at the end of the closure procedure. The patient tolerated the procedure without immediate complications. He was returned to the recovery area and hemodynamically stable condition neurologically unchanged. The estimated blood loss was less than 10 mL. A total of ??8.8 ??minutes of fluoroscopic time and 80 ml of Isovue-300 contrast were utilized for the study. Findings: There was good arterial, capillary, and venous opacification of all angiographic runs. The right subclavian artery angiogram reveals normal course and caliber of the vertebral artery with no stenosis at the origin. Normal course and caliber of the internal mammary artery, thyrocervical trunk and costocervical artery. The right vertebral artery angiogram reveals a V3, bilateral V4 and vertebrobasilar junction that are normal in course and caliber. The major vessels to the cerebellum are normal in course and caliber. The basilar artery and posterior cerebral arteries are also normal in course and caliber. Normal venous drainage. The left common carotid artery angiogram reveals a normal common carotid artery bifurcation with no significant stenosis at origin of left internal carotid. Normal course and caliber of the visualized branches of left external carotid artery. The left internal carotid artery angiogram reveals a normal course and caliber of the intracranial internal carotid artery. The middle cerebral artery is normal in course and caliber as is the venous drainage. Azygous anterior cerebral artery which is a normal variant. No underlying vascular abnormality was visualized. The left external carotid artery angiogram reveals normal course and caliber of the visualized branches of the external carotid artery. No underlying vascular abnormality was visualized. The right common carotid artery angiogram reveals a normal common carotid artery bifurcation with no significant stenosis at origin of right internal carotid. Normal course and caliber of the visualized branches of right external carotid artery. The right internal carotid artery angiogram reveals a normal course and caliber of the intracranial internal carotid artery. The middle cerebral artery is normal in course and caliber as is the venous drainage. Azygous anterior cerebral artery which is a normal variant. No underlying vascular abnormality was visualized. Procedure Note Summer Villagomez MD - 11/22/2021 Procedure: Cerebral angiogram 11/17/2021 Comparison study: None History: The patient a 51 years -year-old Male with hx of left parietal IPH. He is here for a diagnostic cerebral catheter angiogram toevaluate for possible underlying vascular abnormality. Real Property Appraiser: Rivera Villagomez Orthodontist Vice President(s): Ida Arevalo Vessels: Ultrasound guided access of right radial artery Right radial artery angiogram Right common carotid angiogram: Cervical and Cerebral Right internal carotid artery angiogram: Cerebral Left common carotid angiogram: Cervical and Cerebral Left internal carotid artery angiogram: Cerebral Left external carotid artery angiogram: Cerebral Right subclavian artery angiogram: Cervical and Cerebral Right vertebral artery angiogram: Cerebral Anesthesia: I, Dr Summer Villagomez was present and performed/supervised the entire procedure. Moderate sedation on this adult patient wasordered by me, administered intravenously in my presence and monitored by the procedure nurse as an independent trained observer who was presentduring the procedure. The following parameters were monitored: oxygensaturation, heart rate, blood pressure, and response to care. Intra-service sedation start time was 1105 and end time was 1029 during which I was present. Total physician intra-service sedation time was 36 minutes. For detailson sedation patient evaluation, please review the evaluation in [facility]. For details on monitored clinical parameters during the intra-servicesedation time, please review the procedure nurse documentation in [facility]. Procedural detail: The risks, benefits, and alternatives to procedurewere discussed in detail with the patient and his family. These included but were not limited to the risk of blood loss, vessel injury, stroke, renal injury, and contrast allergy. The patient was brought to the biplane angiography suite where he underwent prep and drape procedures. Limited ultrasound of the right radial artery demonstrated a patent vessel. Agray scale image was documented. The right radial artery was accessed using a micropuncture needle. The needle entry was documented. Following aseries of exchanges, a 5 [place] Slender Glidesheath was placed in the right radial artery. Heparin 3,000 units, verapamil 2.5 mg and [id number] mcg were given through the sheath for vasospasm prophylaxis. A 5 [place] Cain 2 catheter was navigated into the aortic arch along withGlidewire 0.035. The catheter was used to select left common carotid arteryfollowed by the left internal carotid artery and a cerebral angiogram wasobtained. The catheter was withdrawn to the common carotid artery and then used to select the external carotid artery and a cerebral angiogram wasobtained. The catheter was returned to the arch and used to select the brachiocephalic artery followed by the right common carotid artery and finally the right internal carotid artery and a cerebral angiogram was obtained. The catheter was returned to the brachiocephalic artery andused to select the right subclavian artery and a cervical angiogram was obtained, then used to select the right vertebral artery and a cerebral angiogram was obtained. All catheters and sheaths were removed from the arterial system. Hemostasis was achieved using a radial band. Hemostasis was immediate at the end of the closure procedure. The radial pulse was palpable at theend of the closure procedure. The patient tolerated the procedure without immediate complications. He was returned to the recovery area and hemodynamically stable condition neurologically unchanged. The estimated blood loss was less than 10 mL. A total of 8.8 minutes of fluoroscopic time and 80 ml of Isovue-300 contrast were utilized for the study. Findings: There was good arterial, capillary, and venous opacification of all angiographic runs. The right subclavian artery angiogram reveals normal course and caliberof the vertebral artery with no stenosis at the origin. Normal course and caliber of the internal mammary artery, thyrocervical trunk and costocervical artery. The right vertebral artery angiogram reveals a V3, bilateral V4 and vertebrobasilar junction that are normal in course and caliber. Themajor vessels to the cerebellum are normal in course and caliber. The basilar artery and posterior cerebral arteries are also normal in course and caliber. Normal venous drainage. The left common carotid artery angiogram reveals a normal common carotid artery bifurcation with no significant stenosis at origin of leftinternal carotid. Normal course and caliber of the visualized branches of left external carotid artery. The left internal carotid artery angiogram reveals a normal course and caliber of the intracranial internal carotid artery. The middle cerebral artery is normal in course and caliber as is the venous drainage.Azygous anterior cerebral artery which is a normal variant. No underlyingvascular abnormality was visualized. The left external carotid artery angiogram reveals normal course and caliber of the visualized branches of the external carotid artery. No underlying vascular abnormality was visualized. The right common carotid artery angiogram reveals a normal commoncarotid artery bifurcation with no significant stenosis at origin of right internal carotid. Normal course and caliber of the visualized branchesof right external carotid artery. The right internal carotid artery angiogram reveals a normal course and caliber of the intracranial internal carotid artery. The middle cerebral artery is normal in course and caliber as is the venous drainage.Azygous anterior cerebral artery which is a normal variant. No underlyingvascular abnormality was visualized. Impression: 1.Azygous anterior cerebral artery which is a normal variant 2.No underling vascularabnormalitywas visualized as the etiology of intraparenchymal hemorrhage I, Dr. SUMMER VILLAGOMEZ have personally reviewed and interpreted this examination/study. This report was electronically signed by SUMMER VILLAGOMEZ on 11/22/2021 8:45 AM . Summer Villagomez MD IR ORDERABLES documented in this encounter Visit Diagnoses Diagnosis Cerebral atherosclerosis- Primary Hx of intracranial hemorrhage- Primary Personal history of other diseases of circulatory system Cerebral atherosclerosis documented in this encounter Additional Health Concerns Infection Onset Date Last Indicated Resolved Time 

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
--- OUTSIDE RECORDS SUMMARY | 2024-06-27 04:49 | XMS_ITS | Encounter Summary ---
Author Organization [facility] Address [address] [place] [place] [address] Care Team Providers Care Java Software Architect Name Role Phone Toni Ravi MD Primary Care Provider [phone] Jomar Noble MD Unavailable Reason for Visit * Reason Comments Follow-up Encounter Details Date Type Department Care Team (Late st Contact Info) Description 06/21/2023 11:20 AM CRYSTAL SYRUP MAKER Office Visit [facility] [address] [place] [phone] Migue Reeder MD [address] [place] [id number] Thrombocytopenia, secondary (Primary Dx) Social History Tobacco Use Types Packs/Day Years Used Date Smoking Tobacco: Every Day Cigarettes Smokeless Tobacco: Never Tobacco Cessation:Ready to Q uit: Not Asked; Counseling Given: Not Answered Alcohol Use Standard Drinks/Week Comments Not Currently [...] Date Recorded Patient Health Questionnaire-2 Score 0 04/24/2023 Hunger Vital Sign Answer Date Recorded Within [...] on file documented as of this encounter Last Filed Vital Signs Vital Sign Reading Time Taken Comments Blood Pressure 126/71 06/21/2023 11:13 AM CRYSTAL SYRUP [employer] Pulse 80 06/21/2023 11:13 AM CRYSTAL SYRUP [employer] Temperature 36.6 ??C (97.8 ??F) 06/21/2023 1 1:13 AM CRYSTAL SYRUP [employer]KER Respiratory Rate - - Oxygen Saturation 100% 06/21/2023 11: 13 AM CRYSTAL SYRUP [employer]KER Inhaled Oxygen Concentration - - Weight 98.8 kg (217 lb 12.8 oz) 024 11:13 AM CRYSTAL SYRUP [employer] Height 190.5 cm (6' 3 ) 06/21/2023 11:1 3 AM CRYSTAL SYRUP [employer]KER Body Mass Index 27.22 06/21/2023 11:13 AM CRYSTAL SYRUP MAKER documented in this encounter Functional Status Functional Status Response [...] person have difficulty concentrating/remembering/making decisions? 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 is a 52-year-old male with past medical history of anxiety, bipolar disorder depression, substance abuse the traumatic brain injury and cirrhosis of liver is been referred for evaluation of the thrombocytopenia from her assisted. Recent blood work there was noted to have a platelet count of 81 prior platelet counts have been low as well. 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 He had seizures was intubated and transferred to [facility] was treated with nicardipine complicated by pneumonia. He was then [facility] Is on several antidepressants and antiseizure medication Patient long-term facility assisted resident accompanied by transportation caregiver not aware of his medical history. Patient not sure of the reason for this visit. Does know that he has liver issues. Denies any active bleeding issues bruising. No epistaxis. The gum bleeding or rectal bleeding. No excessive bruising Claims appetite good weight stable. Continues to smoke not had any drinks since in facility. Deniesany illicit drug use. Social Hx: Disability, , smoker- 1/2 pk day, used to be 1 pp day, ETOH- None at this time, denie sillict drugs Family Hx no blood d/o or cancer Interval History: Chester Dubose Jr. is here for follow-up accompanied by caregiver from facility. Patient denies any new issues the denies any bleeding bruising, epistaxis or any concern no recent infection. Deniesany alcohol use the under GI physician had a recent EGD, AFP normal. Last visit extended workup for thrombocytopenia essentially negative except from mild borderline B12 folic acid Past Medical History: Past Medical History: Diagnosis Date ??? Anxiety ??? Bipolar 1 disorder (CMS-HCC) 10/07/2018 ??? Cirrhosis (CMS-HCC) ??? COPD (chronic obstructive pulmonary disease) (CMS-HCC) ??? Delirium tremens (CMS-HCC) ??? Depression ??? Depression ??? Substance abuse (CMS-HCC) ??? Suicide attempt ([facility]) ??? TBI (traumatic brain injury) ([facility]) Past Surgical History: Past Surgical History: Procedure Laterality Date ??? Wrist Fracture Repair Left 10/15/2018 Left; OPEN REDUCTION INTERNAL FIXATION (ORIF) WRIST/DISTAL RADIUS Social History: Social History Tobacco Use ??? Smoking status: Every Day Packs/day: 1 Types: Cigarettes ??? Smokeless tobacco: Never Substance Use Topics ??? Alcohol use: Not Currently Family History: No family history on file. Allergies: No Known Allergies Medications: Current Outpatient Medications Medication Sig Dispense Refill ??? acetaminophen (Tylenol) 325 MG tablet Take 2 (two) tablets by mouth every 6 hours as needed ??? amLODIPine (Norvasc) 5 MG tablet 1 (one) tablet once daily ??? atorvastatin (Lipitor) 40 MG tablet ??? B Complex Vitamins (vitamin B complex) CAPS capsule Take 1 (one) capsule by mouth once daily 30capsule 5 ??? buPROPion XL 24hr (Wellbutrin-XL) 150 MG tablet ??? busPIRone (Buspar) 10 MG tablet ??? folic acid (Folvite) 1 MG tablet Take 1 (one) tablet by mouth once daily 30 tablet 5 ??? lacosamide (VIMPAT) 100 MG tablet Take 1 (one) tablet by mouth 2 times daily ??? lactulose (CHRONULAC;ENULOSE) 10 GM/15ML solution Take 15 mL by mouth 3 times daily ??? melatonin 3 MG tablet Take 2 (two) tablets by mouth at bedtime ??? paliperidone CR 24hr (Invega) 3 MG tablet every morning ??? QUEtiapine (SEROquel) 50 MG tablet 3 (three) tablets ??? tamsulosin (FLOMAX) 0.4 MG capsule Take 1 (one) capsule by mouth once daily ??? thiamine 100 MG Take 1 tablet by mouth once daily ??? XIFAXAN 550 MG tablet Take 1 (one) tablet by mouth 2 times daily No current facility-administered medications for this visit. Review of Systems: See HPI Physical Exam: Wt Readings from Last 3 Encounters: 06/21/23 98.8 kg (217 lb 12.8 oz) 04/24/23 96.2 kg (212 lb) 11/17/21 92 kg (202 lb 12.8 oz) Temp Readings from Last 3 Encounters: 06/21/23 97.8 ??F (36.6 ??C) (Temporal) 04/24/23 98.5 ??F (36.9 ??C) (Temporal) 11/17/21 98.2 ??F (36.8 ??C) (Oral) BP Readings from Last 3 Encounters: 06/21/23 126/71 04/24/23 113/71 11/17/21 134/82 Pulse Readings from Last 3 Encounters: 06/21/23 80 04/24/23 88 11/17/21 64 Gen: no distress, comfortable Eyes: no scleral icterus Mouth: moist mucus membranes, Respiratory: Air entry to auscultation bilaterally Cardiovascular: S1+S2+0 Extremities: No edema, cyanosis, clubbing or petechiae. Neuro: No gross focal deficits Skin: No rashes or lesions GI: Abdomen soft, non tender, no hepatosplenomegaly Lymph Nodes: None palpable in cervical, supraclavicular areas Back: no spine tenderness on percussion ECOG Depression: PHQ-2: PHQ-9: Pain Assessment Pain Score: Zero Data: Recent Labs Component Name 06/21/23 1057 04/24/23 1519 04/24/23 1517 WBC 3.9* 4.6 4.9 HGB 13.9 13.4 13.0 HCT 40.7 37.5 37.8 PLTCOUNT 79* 84* 81* Recent Labs Component Name 04/24/23 1519 11/17/21 0823 09/13/21 0753 08/28/21 0013 08/27/21 1043 08/25/21 0420 08/24/21 1936 10/21/18 0359 10/18/18 0542 SODIUM 144 - - - - - - 137 137 POTASSIUM 3.9 4.1 3.7 - 3.9 - 3.9 3.9 3.8 CHLORIDE 109* - - - - - - 107 105 CO2 - BUN 10 9 8 - 18 - 10 6* 7* CREATININE 0.76 0.62* 0.55* - 0.66* - 0.66* 0.58* 0.53* GLUCOSE 87 134* 93 - 133* - 110 112* 89 CALCIUM 9.0 8.7 8.0* - 7.9* - 8.0* 8.8 8.7 ALBUMIN 3.8 - - - - - - - 2.6* ALKPHOS 160* - - - 100 - 116 - 107 ALT 25 - - - 37 - 46 - 20 AST 44* - - - 50* - 79* - 84* TBIL 0.8 - - - - - - - 1.1 TPROT 6.8 - - - - - - - 6.8 EGFR 109 >90 >90 - >90 - >90 >60 >60 - = values in this interval not displayed. No results for input(s): LDH in the last 23412 hours. Latest Reference Range & Units 04/24/23 15:19 Folate >3.0 ng/mL 6.5 Vitamin B12 232 - 1,245 pg/mL 604 Latest Reference Range & Units 04/24/23 15:19 HIV Screen 4th Generation w Reflex Non Reactive Non Reactive Hepatitis A Virus Antibody IgM Negative Negative Hepatitis B Core Virus Antibody IgM Negative Negative Hepatitis B Virus Surface Antigen Negative Negative Hepatitis C Antibody Non Reactive Reactive ! Hepatitis C Virus Log 10 NOT AVAILABLE Hepatitis C Virus Quantitation IU/mL HCV Not Detected !: Data is abnormal Imagin08/24/21: Chest: ?? Lines/Tubes: Endotracheal tube terminates in the midthoracic trachea. Enteric tube terminates in the stomach. ?? Lower neck and axillae: Normal. ?? Mediastinum and Dena: No enlarged lymph nodes are present. ?? Heart and Pericardium: The cardiac chambers are normal in size. No pericardial fluid or thickening is present. ?? Lung Parenchyma, Airways, and Pleural Spaces: There is bilateral dependent atelectasis. There is no pleural effusion or pneumothorax. 3 mm right upper lobe nodule along the minor fissure (series 4 image 61). ?? Abdomen/pelvis: ?? Hepatobiliary: The liver is shrunken with nodular surface consistent with cirrhosis. The gallbladder is mildly distended without thickened wall. No discrete hepatic mass is seen. The portal vein is patent. The splenic vein is tortuous and markedly dilated. ?? Pancreas: Normal. ?? Spleen: The spleen is mildly enlarged measuring 15 cm craniocaudally. ?? Kidneys: Normal. ?? Adrenals: Normal. ?? Retroperitoneum/peritoneum: No free air or fluid. Enlarged retroperitoneal lymph nodes, for example left para-aortic 1.2 cm (series 3 image 145), left common iliac 1.2 cm (image 155). ?? Gastrointestinal: The stomach and visualized loops of bowel are unremarkable. Nondilated bowel loops are seen. A 0.5 cm hyperdense object in the cecum and could represent an ingested object (series 3 image 159). This was not present previously. ?? Pelvic Structures: A bladder Harrington catheter is in place. ?? Vasculature: Normal. ?? Bones: The visible osseous structures are intact. Lumbar scoliosis is seen. Partially imaged degenerative changes of the cervical spine. ?? Soft tissues: Normal. ? Impression: ?? 1.No acute finding within the chest. 2.Hepatic cirrhosis with sequela of portal hypertension including splenomegaly and dilated and markedly tortuous splenic vein. 3.A 0.5 cm hyperdense focus in the cecum was not present previously and could represent an ingested object. ?? US : 08/26/21 FINDINGS: ?? Abdomen: ?? The liver has a coarse echotexture and nodular surface. No discrete hepatic mass or intrahepatic biliary dilation is seen. ?? Gallstones and sludge are seen within the gallbladder. There is trace pericholecystic fluid. The gallbladder wall is normal in thickness, measuring 3 mm. The common bile duct is nondilated, measuring 5 mm. ?? The right kidney measures 12.4 cm. Limited views of the right kidney reveal no evidence of nephrolithiasis or hydronephrosis. The spleen measures 15 cm in length. The visible pancreas is normal in echogenicity. There is trace perihepatic fluid. ?? Liver Doppler: ?? The hepatic veins are not identified with Color and spectral Doppler evaluation. Large gastric varices are present. ?? The main, left, and right portal veins appear patent with reversal of the normal hepatopetal flow. The main portal vein demonstrates a normal phasic waveform and velocity measures 32.4 cm/s. ?? The proper hepatic artery is patent and demonstrates a normal arterial waveform with brisk systolic upstroke and antegrade flow. Resistive index in the proper hepatic artery measures 0. 65. ? IMPRESSION: ?? 1.Hepatic cirrhosis with sequelae of portal hypertension; there is reversal of normal portal flow directionality. 2.Cholelithiasis with trace pericholecystic fluid. No further sonographic evidence of acute cholecystitis. 3.Nonvisualization of the hepatic veins. 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 4.Trace perihepatic fluid. ?? 06/04/23: Impression: ?- Normal proximal esophagus and mid esophagus. ?- Grade I esophageal varices. ?- Erythematous mucosa in the stomach. ?- Normal duodenal bulb and second portion of the ?duodenum. ?- No specimens collected. Assessments and Recommendations: Mr. Chester Dubose Jr. is a 53 year old male is here for following issues: Thrombocytopenia: Multifactorial-liver cirrhosis splenomegaly , medications possible nutritional deficiencies prior ETOH use, ; [place] [address] with a mildly low white cell countof 3.7 K. Discussed with patient various reasons for her thrombocytopenia and his case most common an obviouswould be cirrhosis with splenomegaly. I note in 1 year ago. His platelets were around 120s while he was in hospital. Now in 80s -recent investigation including hepatitis HIV was negative C antibody positive likely vaccinated. Platelet antibodies negative Borderline folic acid in low normal B12. Discussed with the patient and caregiver that his thrombocytopenia is mainly due to his liver disorder. Also he is on psychiatric medications which may also contribute. He denies any alcohol use thistime. Platelets are stable around 79-80 range. No active bleeding issues at this time will recommend observation. Will recommend starting on folic acid and B12 supplement He should avoid alcohol in NSAIDs in future. Will see him again in 4 months. Hepatic cirrhosis with the portal hypertension, splenomegaly Secondary to ETOH On thiamine Xifaxamin Under GI at [facility] S/p recent EGD- grade 1 varices AFP- WNL has f/u in office and imaging planned. Abnormal LFTs-2/2 cirrhosis hepatitis and HIV neg Bipolar disorder On Seroquel Traumatic brain injury secondary to suicidal ideation And ingestion of toxins Presented with seizures was intubated On Vimpat History of polysubstance abuse residential resident Plan: Start Folic acid 1mg daily Also start B complex Avoid Nsaids/ETOH F/u in 4 month with JS/KE with cbc, cmp, + b12 /folate +red tube Migue Reeder M.D. Hematology/Oncology [facility] TAL SYRUP [employer]KER documented in this encounter Plan of Treatment Upcoming Encounters Date Type Department Care Team (Late st Contact Info) Description 08/25/2024 1:10 PM CDT Documentation [address] [phone] 08/25/2024 1:20 PM CDT Office Visit [address] [phone] Migue Reeder MD [address] [place] [phone] documented as of this encounter Procedures Procedure Name Priority Date/Time Associated Diagnosis Comments COMPREHENSIVE METABOLIC PANEL Routine 06/21/2023 11:24 AM CRYSTAL SYRUP MAKER Thrombocytopenia, secondary CBC W AUTO DIFFERENTIAL ([facility]) Routine 06/21/2023 10:57 AM CRYSTAL SYRUP MAKER Thrombocytopenia, secondary documented in this encounter Results * (ABNORMAL) COMPREHENSIVE METABOLIC PANEL (06/21/2023 11:24 AM CRYSTAL SYRUP MAKER) Glucose 111(H) 70 - 99 mg/dL [facility] INSURANCE BILL BUN 6 6 - 24 mg/dL [facility] INSURANCE BILL Creatinine 0.79 0.76 - 1.27 mg/dL [facility] INSURANCE BILL eGFR by CKD-EPI 107 >59 mL/min/1.7 3 [facility] INSURANCE BILL BUN/Creatinine Ratio 8(L) 9 - 20 [facility] INSURANCE BILL Sodium 143 134 - 144 mmol/L [facility] INSURANCE BILL Potassium 4.0 3.5 - 5.2 mmol/L [facility] INSURANCE BILL Chloride 107(H) 96 - 106 mmol/L [facility] INSURANCE BILL CO2 25 20 - 29 mmol/L [facility] INSURANCE BILL Calcium 9.0 8.7 - 10.2 mg/dL [facility] INSURANCE BILL Protein Total 7.0 6.0 - 8.5 g/dL [facility] INSURANCE BILL Albumin 3.8 3.8 - 4.9 g/dL [facility] INSURANCE BILL Globulin Total 3.2 1.5 - 4.5 g/dL [facility] INSURANCE BILL Albumin/Globulin Ratio 1.2 1.2 - 2.2 [facility] INSURANCE BILL Bilirubin Total 0.7 0.0 - 1.2 mg/dL [facility] INSURANCE BILL Alkaline Phosphatase 161(H) 44 - 121 IU/L [facility] INSURANCE BILL AST 76(H) 0 - 40 IU/L [facility] INSURANCE BILL ALT 41 0 - 44 IU/L [facility] INSURANCE BILL Blood BLOOD SPECIMEN / Unknown 06/21/2023 11:24 AM CRYSTAL SYRUP MAKER 06/21/2023 Narrative Resulting Agency Comment Lab Testing performed at: [address] ??[facility] [phone] Migue Reeder MD LAB - CHEMISTRY MIGUEL GOLD [facility] INSURANCE BILL [address] [place] [address] * (ABNORMAL) CBC W AUTO DIFFERENTIAL ([facility]) (06/21/2023 10:57 AM CRYSTAL SYRUP MAKER) WBC 3.9(L) 4.4 - 10.7 x10E9/L 06/21/2023 11:05 AM CRYSTAL SYRUP MAKER [facility] Neutrophils % 52.0 44.0 - 73.0 % 06/21/2023 11:05 AM CRYSTAL SYRUP MAKER [facility] Lymphocytes % 29.6 20.0 - 43.0 % 06/21/2023 11:05 AM CRYSTAL SYRUP MAKER [facility] Monocytes % 14.2(H) 5.0 - 13.0 % 06/21/2023 11:05 AM CRYSTAL SYRUP MAKER [facility] Eosinophils % 3.4 0.0 - 6.0 % 06/21/2023 11:05 AM CRYSTAL SYRUP MAKER [facility] Basophils % 0.8 0.0 - 2.0 % 06/21/2023 11:05 AM [facility] Neutrophil Absolute 2.02 2.01 - 7.14 x10E9/L 06/21/2023 11:05 AM [facility] Lymphocytes Absolute 1.15 1.07 - 3.94 x10E9/L 06/21/2023 11:05 AM [facility] Monocytes Absolute 0.55 0.26 - 1.07 x10E9/L 06/21/2023 11:05 AM [facility] Eosinophils Absolute 0.13 0 - 0.47 x10E9/L 06/21/2023 11:05 AM [facility] Basophils Absolute 0.03 0 - 0.08 x10E9/L 06/21/2023 11:05 AM [facility] RBC 4.31 3.80 - 5.40 x10E12/L 06/21/2023 11:05 AM [facility] Hemoglobin 13.9 12.0 - 17.6 gm/dL 06/21/2023 11:05 AM [facility] Hematocrit 40.7 35.2 - 51.7 % 06/21/2023 11:05 AM [facility] MCV 94.4 80.7 - 98.3 fl 06/21/2023 11:05 AM [facility] MCH 32.3 26.7 - 34.0 pg 06/21/2023 11:05 AM [facility] MCHC 34.2 30.8 - 35.9 gm/dL 06/21/2023 11:05 AM [facility] RDW-CV 13.9 12.1 - 14.9 % 06/21/2023 11:05 AM [facility] Platelet Count 79(L) 153 - 416 x10E9/L 06/21/2023 11:05 AM [facility] MPV 9.7 9.4 - 12.9 fl 06/21/2023 11:05 AM [facility] Blood BLOOD SPECIMEN / Unknown 06/21/2023 10:57 AM CRYSTAL SYRUP MAKER 06/21/2023 10:57 AM CRYSTAL SYRUP MAKER Narrative [facility] - 06/21/2023 11:05 AM CRYSTAL SYRUP MAKER Cancer Care protocol. Automated differential only. ??Manual differential performed upon provider's request. Thrombocytopenia Migue Reeder MD LAB - HEMATOLOGY ORD ERABLES Performing Organization Address City/State/[facility] Co de Phone Number [id number] [address] [id number] documented in this encounter Visit Diagnoses Diagnosis Thrombocytopenia, secondary- Primary Other secondary thrombocytopenia documented in this encounter Additional Health Concerns Infection Onset Date Last Indicated Resolved Time 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 Care Teams Java Software Architect Relationship Specialty Start Date End Date Toni Ravi MD [address] [place] [phone] PCP - General Internal Medicine 04/24/23 Jomar Noble MD [address] [facility] [address] [place] [address] Hospitalist Internal Medicine 04/24/23 documented as of this encounter
--- OUTSIDE RECORDS SUMMARY | 2024-06-27 04:49 | XMS_ITS | Encounter Summary ---
Author Organization [facility] Address [address] [place] [address] Care Team Providers Care Casino Investigator Name Role Phone Toni Ravi MD Primary Care Provider [phone] Jomar Noble MD Unavailable Reason for Visit * Reason Onset Date Comments Appointment 09/24/2023 See note Encounter Details Date Type Department Care Team (Late st Contact Info) Description 09/24/2023 Telephone [facility] [address] [phone] Migue Reeder MD [address] [address] Appointment (See note) Social History Tobacco Use Types Packs/Day Years Used Date Smoking Tobacco: Every Day Cigarettes Smokeless Tobacco: Never Alcohol Use Standard Drinks/Week Comments Not Currently [...] Yes 11/17/2021 documented as of this encounter Miscellaneous Notes * Telephone Encounter - Anju Mercedes RN - 09/24/2023 8:48 AM CDT Kimberley RN, from pt's [facility] called and changed pt's appt from 10/23/23 to Sun10/24/23. She states pt needs appts on Sun, Sun, or Sunday. Anju Mercedes RN 09/24/2023 8:49 AM documented in this encounter Plan of Treatment Upcoming Encounters Date Type Department Care Team (Late st Contact Info) Description 08/25/2024 1:10 PM CDT Documentation [facility] [address] [phone] 08/25/2024 1:20 PM CDT Office Visit [facility] [address] [phone] Migue Reeder MD [address] [place] [id number] documented as of this encounter Visit Diagnoses Not on filedocumented in this encounter Additional Health Concerns Infection Onset Date Last Indicated Resolved Time 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 Care Teams Casino Investigator Relationship Specialty Start Date End Date Toni Ravi MD [address] [place] [id number] PCP - General Internal Medicine 04/24/23 Jomar Noble MD [address] [phone] Hospitalist Internal Medicine 04/24/23 documented as of this encounter
--- OUTSIDE RECORDS SUMMARY | 2024-06-27 04:49 | XMS_ITS | Encounter Summary ---
Author Organization [facility] Address [address] [facility] [place] [address] Care Team Providers Care Manager Graphic Name Role Phone Unavailable Primary Care Provider Unavailabl e Encounter Details Date Type Department Care Team (Latest Contact Info) Description 10/13/2021 11:00 AM CDT Office Visit [facility] [address] [facility] [place] [address] Arielle Ramey PA-C [address] [place] [address] [address] [place] [address] Nontraumatic intracerebral hemorrhage, unspecified cerebral location, unspecified laterality (HCC) (Primary Dx); Seizures (HCC); Intentional drug overdose, sequela (HCC) Social History Tobacco Use Types Packs/Day Years [...] Sign Reading Time Taken Comments Blood Pressure 144/76 10/13/2021 10:53 AM CDT Pulse 9 10/13/2021 10:53 AM CDT Temperature - - Respiratory Rate 24 10/13/2021 10:53 AM CDT Oxygen Saturation - - Inhaled Oxygen Concentration - - Weight 89.8 kg (198 lb) 10/13/2021 10:53 AM CDT Height 182.9 cm (6') 10/13/2021 10:53 AM CDT Body Mass Index 26.85 10/13/2021 10:53 AM CDT documented in this encounter Functional Status Functional [...] Yes 09/13/2021 documented as of this encounter Patient Instructions * Patient Instructions* Arielle Ramos PA-C - 10/13/2021 10:58 AM CDT -Follow up with your primary care provider as routinely scheduled. -We will call you to schedule your procedure. -If you have questions about this visit, please contact our nurse Alayna at [phone]. -Take your medications as prescribed. If you have questions on them you can speak with your primarycare provider, pharmacist or call our office. -Signs or symptoms of a stroke include: sudden numbness or weakness in your face, arm, or legs, sudden problems with speaking or understanding speech, sudden issues with walking or loss of balance, sudden lack of coordination, or asymmetrical features of your face. If any of these events occur, please call 911 and go to the nearest emergency room. -If you have thoughts of harming yourself or others please call 911 or go to your nearest emergencyroom. documented in this encounter Progress Notes * Arielle Ramos PA-C - 10/13/2021 10:48 AM CDT Neurology Clinic Visit Note Date of Encounter: 10/13/2021 Chief Complaint: Hospital follow up for recent CVA HPI: Chester Dubose Jr. is a 51 year old y/o male who presents to the outpatient clinic for recent IPH from 08/24. Pt states he is doing okay and has been at rehab. His only symptoms he has complaints with his problems with speech. He states he know the words he wants to say but has issues expressing them or articulating them. He has no issues with swallowing. He denies problems with gait, weakness, tingling, or numbness. He has no further SI and has a plan to call 911 or speak with family if they occur. He says they come and go but he is doing better. He has not done drugs since being in rehab. Sister Sarah at bedside who states she is the POA. Review of Systems: A 10-pt ROS was performed. Pertinent negatives include no visual disturbances, no vertigo, no weakness, no sensory disturbance, and no difficulty with gait. All other systems were reviewed and negative. Allergies: No Known Allergies Home Medications: Prior to Admission medications Medication Sig Start Date End Date Taking? Authorizing Provider lacosamide (VIMPAT) 100 MG tablet Take 1 (one) tablet by mouth 2 times daily 09/13/21 Zhou Aponte III, MD lactulose (CHRONULAC;ENULOSE) 10 GM/15ML solution Take 15 mL by mouth 3 times daily ProviderCrista MD melatonin 3 MG tablet Take 2 (two) tablets by mouth at bedtime 09/13/21 Bob Aponte III, MD QUEtiapine (SEROQUEL) 100 MG tablet Take 1 (one) tablet by mouth 2 times daily 09/13/21 Bob Aponte III, MD tamsulosin (FLOMAX) 0.4 MG capsule Take 0.4 mg by mouth once daily 06/20/21 Provider, MD Crista thiamine 100 MG Take 1 tablet by mouth once daily 10/18/18 Herbert Spencer MD XIFAXAN 550 MG tablet Take 550 mg by mouth 2 times daily 07/04/21 Provider, MD Crista PMH: Past Medical History: Diagnosis Date ??? Anxiety ??? Bipolar 1 disorder 10/07/2018 ??? Cirrhosis ??? COPD (chronic obstructive pulmonary disease) ??? Delirium tremens ??? Depression ??? Depression ??? Substance abuse ??? Suicide attempt Family History: No family hx of strokes Social History: Heavy Drinker, Former smoker and Lives in facility. Quit smoking 2 weeks ago, was smoking 1PPD Objective: Vitals: BP 144/76 Pulse 9 Resp 24 Ht 6' (1.829 m) Wt 198 lb (89.8 kg) BMI 26.85 kg/m2 General: WDWN pt resting comfortably in the chair in NAD Comprehensive Neurological Examination: - Mental status: Patient is alert and oriented to time, place, person and situation but not president - Speech: Fluent, with normal naming, comprehension, articulation on my exam. - CN II-XII: Visual dover intact to confrontation, PERRLA, EOMI, facial sensation intact. Symmetrical facial movement. Hearing grossly intact. Strong cough, elevates palate, uvula midline. Strong shoulder shrug. Tongue midline. - Motor: Normal tone and bulk. No abnormal movement, fasciculation or pronator drift. -Strength: 5/5 in the UE and LE -Sensory: intact light touch. -Coordination/ fine movement: normal finger to nose, heel to olsen Assessment: Chester Dubose Jr. is a 51 year old y/o male who presents to the outpatient clinic for hospital follow up for recent Intraparenchymal hematoma of the left posterior parietotemporal lobe on 08/24. This was thought to be due to HTN d/t suicide attempt with ingesting meth. CTA was done which showed noaneurysm of AVM. Echo showed no cardiac shunt. He did have a seizure and was started on lacosamide and also saw psychiatry due to his SI. Dr. Villagomez recommends an outpt angiogram and pt agreeable todo so. He is currently at [facility] in [place] and he recommended calling there to schedule his procedure. His sister Sarah is a backup at [phone] Stroke mechanism:HTN 2/2 meth ingestion Modified Hemphill Score:1 Diagnosis: I61.9 Nontraumatic intracerebral hemorrhage, unspecified cerebral location, unspecified laterality (primary encounter diagnosis) R56.9 Seizures T50.902S Intentional drug overdose, sequela Plan: 1. Continue lacosamide for sz 2. Avoid utilizing drugs (meth, cocaine etc) to prevent future strokes 3. Follow up with Dr. Villagomez for cerebral angiogram Stroke Risk Factor Modification: - Goal BP <140/90 - Goal HbA1c <7 - Goal LDL <100 - Physical Activity: 3-4x 40min sessions of aerobic exercise per week - Nutrition: diet rich in fruit and vegetables, reduction in sodium intake to <2.4g/d - Tobacco avoidance I personally spent 35 minutes on 10/13/2021 preparing to see the patient (e.g. reviewing chart, review of tests), obtaining and/or reviewing the separately obtained history, performing a medically necessary and appropriate examination and evaluation, counseling and educating the patient, documentingin the patient record, and communicating results to the patient/family/caregiver. documented in this encounter Plan of Treatment Upcoming Encounters Date Type Department Care Team (Late st Contact Info) Description 08/25/2024 1:10 PM CDT Documentation [address] [phone] 08/25/2024 1:20 PM CDT Office Visit [address] [address] Migue Reeder MD [address] [place] [phone] documented as of this encounter Visit Diagnoses Diagnosis Nontraumatic intracerebral hemorrhage, unspecified cerebral location, unspecified laterality (HCC)- Primary Seizures (HCC) Other convulsions Intentional drug overdose, sequela (HCC) documented in this encounter Additional Health Concerns Infection Onset Date Last Indicated Resolved Time 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
--- OUTSIDE RECORDS SUMMARY | 2024-06-27 04:49 | XMS_ITS | Encounter Summary ---
Author Organization [facility] Address [address] [place] [address] Care Team Providers Care Pulp Grinder And Blender Name Role Phone Toni Ravi MD Primary Care Provider [phone] Jomar Noble MD Unavailable Encounter Details Date Type Department Care Team (Latest Contact Info) Description 09/24/2023 Travel Social History Tobacco Use Types Packs/Day Years [...] Yes 11/17/2021 documented as of this encounter Plan of Treatment Upcoming Encounters Date Type Department Care Team (Late st Contact Info) Description 08/25/2024 1:10 PM CDT Documentation [facility] [address] [phone] 08/25/2024 1:20 PM CDT Office Visit [address] [phone] Migue Reeder MD [address] [place] [phone] documented as of this encounter Visit Diagnoses Not on filedocumented in this encounter Additional Health Concerns Infection Onset Date Last Indicated Resolved Time 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 Care Teams Pulp Grinder And Blender Relationship Specialty Start Date End Date Toni Ravi MD [address] [place] [phone] PCP - General Internal Medicine 04/24/23 Jomar Noble MD [address] [address] Hospitalist Internal Medicine 04/24/23 documented as of this encounter
--- OUTSIDE RECORDS SUMMARY | 2024-06-27 04:49 | XMS_ITS | Patient Health Summary ---
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 Organization Address City/[facility]/ZIP Co de Phone Number [facility] INSURANCE BILL [address] [place] [address] * VITAMIN B12 FOLATE PANEL (02/25/2024 2:09 PM CDT) Only the most recent of3 resultswithin the time period is included. [facility] Vitamin B12 789 213 - 816 pg/mL [facility] INSURANCE BILL Folate 12.3 7.0 - 31.4 ng/mL [facility] INSURANCE BILL Blood BLOOD SPECIMEN / Unknown 02/25/2024 2:09 PM CDT 02/25/2024 Narrative Resulting Agency Comment Lab Testing performed at: [address] ??[facility] [phone] Migue Reeder MD LAB - CHEMISTRY MIGUEL GOLD Performing Organization Address [facility] Co de Phone Number [facility] INSURANCE BILL [address] [place] [address] * (ABNORMAL) CBC W AUTO DIFFERENTIAL (CANCER CARE) (02/25/2024 1:15 PM CDT) Only the most recent of4 resultswithin the time period is included. Pathologist [facility] WBC 3.5(L) 4.4 - 10.7 x10E9/L 02/25/2024 1:32 PM CDT [facility] Neutrophils % 51.3 44.0 - 73.0 % 02/25/2024 1:32 PM CDT [facility] Lymphocytes % 35.6 20.0 - 43.0 % 02/25/2024 1:32 PM CDT [facility] Monocytes % 9.1 5.0 - 13.0 % 02/25/2024 1:32 PM CDT [facility] Eosinophils % 3.1 0.0 - 6.0 % 02/25/2024 1:32 PM CDT [facility] Basophils % 0.9 0.0 - 2.0 % 02/25/2024 1:32 PM CDT [facility] Neutrophil Absolute 1.80(L) 2.01 - 7.14 x10E9/L 02/25/2024 1:32 PM CDT [facility] Lymphocytes Absolute 1.25 1.07 - 3.94 x10E9/L 02/25/2024 1:32 PM CDT [facility] Monocytes Absolute 0.32 0.26 - 1.07 x10E9/L 02/25/2024 1:32 PM CDT [facility] Eosinophils Absolute 0.11 0 - 0.47 x10E9/L 02/25/2024 1:32 PM CDT [facility] Basophils Absolute 0.03 0 - 0.08 x10E9/L 02/25/2024 1:32 PM CDT [facility] RBC 4.36 3.80 - 5.40 x10E12/L 02/25/2024 1:32 PM CDT [facility] Hemoglobin 14.4 12.0 - 17.6 gm/dL 02/25/2024 1:32 PM CDT [facility] Hematocrit 41.4 35.2 - 51.7 % 02/25/2024 1:32 PM CDT [facility] MCV 95.0 80.7 - 98.3 fl 02/25/2024 1:32 PM CDT [facility] MCH 33.0 26.7 - 34.0 pg 02/25/2024 1:32 PM CDT [facility] MCHC 34.8 30.8 - 35.9 gm/dL 02/25/2024 1:32 PM CDT [facility] RDW-CV 13.7 12.1 - 14.9 % 02/25/2024 1:32 PM CDT [facility] Platelet Count 80(L) 153 - 416 x10E9/L 02/25/2024 1:32 PM CDT [facility] MPV 9.8 9.4 - 12.9 fl 02/25/2024 1:32 PM CDT [facility] CC LAB [facility] Blood BLOOD SPECIMEN / Unknown 02/25/2024 1:15 PM CDT 02/25/2024 1:15 PM CDT Narrative [facility] CC LAB [facility] - 02/25/2024 1:32 PM CDT [facility] protocol. Automated differential only. ??Manual differential performed upon provider's request. Thrombocytopenia Migue Reeder MD LAB - HEMATOLOGY ORD ERABLES [facility] CC LAB [facility] [address] [facility],[address] [address] * (ABNORMAL) HEPATITIS SCREEN ACUTE ([facility]) (04/24/2023 3:19 PM FILTER PLANT SUPERVISOR) Pathologist [facility] Hepatitis A Virus Antibody IgM Negative Negative [facility] INSURANCE BILL Hepatitis B Virus Surface Antigen Negative Negative [facility] INSURANCE BILL Hepatitis B Core Virus Antibody IgM Negative Negative [facility] INSURANCE BILL Hepatitis C Antibody Reactive(A) Non Reactive [facility] INSURANCE BILL Blood BLOOD SPECIMEN / Unknown 04/24/2023 3:19 PM [employer] SUPER[employer]OR 04/24/2023 Narrative Resulting Agency Comment [facility]: [facility] [address] [facility] [phone] Migue Reeder MD LAB - CHEMISTRY ORDE RABEMILE Performing Organization Address City/[facility]/ZIP Co de Phone Number [facility] INSURANCE BILL [address] [place] [address] * HCV PCR QUANT (NON GRAPH) REFLEXED (04/24/2023 3:19 PM [employer] SUPER[employer]OR) Pathologist [facility] Hepatitis C Virus Quantitation HCV Not Detected IU/mL [facility] INSURANCE BILL Hepatitis C Virus Log 10 NOT AVAILABLE [facility] INSURANCE BILL Comment:Result cannot be obt ained for this observation. Test Information [facility] INSURANCE BILL Comment:The quantitative ran ge of this assay is 15 IU/mL to 100 million IU/mL. Interpretation [facility] INSURANCE BILL Comment: Positive HCV antibody screen without the presence of HCV RNA is consistent with a resolved past infection or a false positive HCV antibody. Consider repeat testing after one month. 04/24/2023 3:19 PM [employer]PER[employer]OR 04/24/2023 Narrative Resulting Agency Comment Lab Testing performed at: [facility] ??[facility] [phone] Migue Reeder MD LAB - SEROLOGY ORDER WILLIAN [facility] INSURANCE BILL [address] [place] [address] * (ABNORMAL) HEMATOPATHOLOGY CONSULT (04/24/2023 3:19 PM [employer]PER[employer]) WBC Morph Appear normal. [facility] INSURANCE BILL RBC Morphology [facility] INSURANCE BILL Comment: Normochromic, normocytic anemia without significant morphologic abnormality. Diagnostic possibilities include early iron deficiency, decreased red cell production due to drug/medication, chronic disease, neoplasm, and inflammatory processes. Acute blood loss could also be considered. Platelets [facility] INSURANCE BILL Comment: Thrombocytopenia is confirmed by blood smear observation. Platelet morphology appears normal. Comments/Recommen dations [facility] INSURANCE BILL Pathologist [facility] INSURANCE BILL Comment: ? . Reviewed by: Toni Palacios MD, Pathologist WBC 4.6 3.4 - 10.8 x10E3/uL [facility] INSURANCE BILL Comment:Verified by repeat analysis RBC 4.07(L) 4.14 - 5.80 x10E6/uL [facility] INSURANCE BILL Hemoglobin 13.4 13.0 - 17.7 g/dL [facility] INSURANCE BILL Hematocrit 37.5 37.5 - 51.0 % [facility] INSURANCE BILL MCV 92 79 - 97 fL [facility] INSURANCE BILL MCH 32.9 26.6 - 33.0 pg [facility] INSURANCE BILL MCHC 35.7 31.5 - 35.7 g/dL [facility] INSURANCE BILL RDW 13.9 11.6 - 15.4 % [facility] INSURANCE BILL Platelet Count 84(LL) 150 - 450 x10E3/uL [facility] INSURANCE BILL Granulocytes % 63 Not Estab. % [facility] INSURANCE BILL Lymphocytes % 25 Not Estab. % [facility] INSURANCE BILL Monocytes % 9 Not Estab. % [facility] INSURANCE BILL Eosinophils % 2 Not Estab. % [facility] INSURANCE BILL Basophils % 1 Not Estab. % [facility] INSURANCE BILL Immature Cells NOT AVAILABLE [facility] INSURANCE BILL Comment:Result cannot be obt ained for this observation. Granulocytes Absolute 2.9 1.4 - 7.0 x10E3/uL [facility] INSURANCE BILL Lymphocytes Absolute 1.1 0.7 - 3.1 x10E3/uL [facility] INSURANCE BILL Monocytes Absolute 0.4 0.1 - 0.9 x10E3/uL [facility] INSURANCE BILL Eosinophils Absolute 0.1 0.0 - 0.4 x10E3/uL [facility] INSURANCE BILL Basophils Absolute 0.0 0.0 - 0.2 x10E3/uL [facility] INSURANCE BILL Immature Granulocytes 0 Not Estab. % [facility] INSURANCE BILL Immature Granulocytes Absolute 0.0 0.0 - 0.1 x10E3/uL [facility] INSURANCE BILL nRBC NOT AVAILABLE [facility] INSURANCE BILL Comment:Result cannot be obt ained for this observation. Comment Hematology Note: [facility] INSURANCE BILL Comment:Verified by microsco pic examination. Blood BLOOD SPECIMEN / Unknown 04/24/2023 3:19 PM FILTER PLANT SUPERVISOR 04/24/2023 Narrative Resulting Agency Comment Lab Testing performed at: [facility] [address] [facility] [address] ??[place] [phone] Migue Reeder MD LAB - PATHOLOGY/CYTO LOGY ORDERABLES [facility] INSURANCE BILL [address] [place] [address] * HIV-1 HIV-2 ANTIBODY + HIV P24 AG PANEL (04/24/2023 3:19 PM FILTER PL[employer] SUPER[employer]OR) Only the most recent of2 resultswithin the time period is included. HIV Screen 4th Generation w Reflex Non Reactive Non Reactive [facility] INSURANCE BILL Comment: HIV Negative HIV-1/HIV-2 antibodies and HIV-1 p24 antigen were NOT detected. There is no laboratory evidence of HIV infection. Blood BLOOD SPECIMEN / Unknown 04/24/2023 3:19 PM FILTER PL[employer] SUPERVISOR 04/24/2023 Narrative Resulting Agency Comment Lab Testing performed [facility]: [facility] [address] ??[place] [phone] Migue Reeder MD LAB - CHEMISTRY MIGUEL GOLD [facility] [address] [facility] [place] [address] * MASSIEL BLOOD SCREEN W/REFLEX TITER (04/24/2023 3:19 PM FILTER PL[employer] SUPERVISOR) MASSIEL Negative [facility] INSURANCE BILL Comment: ?Negative ?? <1:80 ?Borderline ??1:80 ?Positive ?? >1:80 ICAP nomenclature: AC-0 For more information about Hep-2 cell patterns use ANApatterns.org, the official website for the International Consensus on Antinuclear Antibody (MASSIEL) Patterns (ICAP). Blood BLOOD SPECIMEN / Unknown 04/24/2023 3:19 PM FILTER PLANT SUPERVISOR 04/24/2023 Narrative Resulting Agency Comment Lab Testing performed [facility]: [facility] [address] [facility] ??[place] [phone] Migue Reeder MD LAB - CHEMISTRY MIGUEL GOLD [facility] INSURANCE BILL [address] [facility] [place] [address] * PLATELET ANTIBODY PANEL (04/24/2023 3:19 PM FILTER PL[employer] SUPERVISOR) HLA Class I Antibody Negative Negative [facility] INSURANCE BILL IIb/IIIa Antibody Negative Negative [facility] INSURANCE BILL Ib/IX Antibody Negative Negative [facility] INSURANCE B[facility] Ia/IIa Antibody Negative Negative [facility] INSURANCE BILL Glycoprotein IV Antibody Negative Negative [facility] INSURANCE BILL Blood BLOOD SPECIMEN / Unknown 04/24/2023 3:19 PM FILTER PL[employer] SUPERVISOR 04/24/2023 Narrative Resulting Agency Comment Lab Testing performed at: [address] ??[facility] [phone] Migue Reeder MD LAB - CHEMISTRY MIGUEL GOLD Performing Organization Address City/[facility]/ZIP Co de Phone Number [facility] INSURANCE BILL [address] [place] [address] * COPPER BLOOD (04/24/2023 3:19 PM FILTER PL[employer] SUPERVISOR) Pathologist [facility] Copper 95 69 - 132 ug/dL [facility] INSURANCE BILL Comment:Detection Limit = 5 Blood BLOOD SPECIMEN / Unknown 04/24/2023 3:19 PM FILTER PL[employer] SUPERVISOR 04/24/2023 Narrative [facility] INSURANCE BILL - 05/03/2023 3:35 AM [employer] SUPERVISOR Test(s) [id number], Serum or Plasma was developed and its performance characteristics determined by [facility]. It has not been cleared or approved by the Food and Drug Administration. Resulting Agency Comment Lab Testing performed at: [address] ??[facility] [phone] Migue Reeder MD LAB - CHEMISTRY MIGUEL GOLD Performing Organization Address City/[facility]/ZIP Co de Phone Number [facility] INSURANCE BILL [address] [place] [address] * IR CAROTID CEREBRAL ANGIOGRAM (11/17/2021 11:06 [...] angiogram toevaluate for possible underlying vascular abnormality. Inside Sales Lead: Rivera Villagomez Master Technician(s): Ida Arevalo Vessels: Ultrasound guided access of [...] patient evaluation, please review the evaluation in [facility]. For details on monitored clinical parameters during the intra-service sedation time, please review the procedure nurse documentation in [facility]. Procedural detail: The risks, benefits, and alternatives [...] Following a series of exchanges, a 5 Turkish Slender Glidesheath was placed in the right radial artery. Heparin 3,000 units, verapamil 2.5 mg and nitroglycerin 300 mcg were given through the sheath for vasospasm prophylaxis. A 5 Turkish Cain 2 catheter was navigated into the [...] angiogram toevaluate for possible underlying vascular abnormality. Inside Sales Lead: Rivera Villagomez Master Technician(s): Ida Arevalo Vessels: Ultrasound guided access of [...] patient evaluation, please review the evaluation in [facility]. For details on monitored clinical parameters during the intra-servicesedation time, please review the procedure nurse documentation in [facility]. Procedural detail: The risks, benefits, and alternatives [...] documented. Following aseries of exchanges, a 5 Turkish Slender Glidesheath was placed in the right radial artery. Heparin 3,000 units, verapamil 2.5 mg and [id number] mcg were given through the sheath for vasospasm prophylaxis. A 5 Turkish Fusion Garage 2 catheter was navigated into the aortic [...] AM . Summer Villagomez MD IR ORDERABLES * (ABNORMAL) PT-INR [facility] (11/17/2021 8:23 AM CDT) Only the most recent of13 resultswithin the time period is included. PT 16.8(H) 12.1 - 14.8 Seconds 11/17/2021 8:54 AM T [facility] INR 1.4 See Comment 11/17/2021 8:54 AM [facility] Comment:The suggested therap eutic range for standard coumadin (warfarin) therapy is an INR of 2.0-3.0. For high-risk patients (Mechanical Mitral Valve Prosthesis, etc.), the suggested prophylactic therapeutic range is an INR of 2.5-3.5. Blood BLOOD SPECIMEN / Unknown Venipuncture / Unknown 11/17/2021 8:23 AM CDT 11/17/2021 8:33 AM CDT Valdo Arevalo MD LAB - COAGULATION OR DERABLES [facility] [address] [place] [address], [facility] [phone] * (ABNORMAL) CBC W AUTO DIFFERENTIAL (11/17/2021 8:23 AM CDT) Only the most recent of19 resultswithin the time period is included. WBC 4.5 3.5 - 10.5 10? 3 /uL 11/17/2021 8:38 AM [facility] RBC 4.01(L) 4.30 - 5.70 10? 6 /uL 11/17/2021 8:38 AM [facility] Hemoglobin 12.6 12.0 - 17.6 g/dL 11/17/2021 8:38 AM [facility] Hematocrit 37.9 35.2 - 51.7 % 11/17/2021 8:38 AM [facility] MCV 94.5 80.7 - 98.3 fL 11/17/2021 8:38 AM [facility] MCH 31.4 26.7 - 34.0 pg 11/17/2021 8:38 AM [facility] MCHC 33.2 30.8 - 35.9 g/dL 11/17/2021 8:38 AM [facility] Platelet Count 126(L) 150 - 400 10? 3 /uL 11/17/2021 8:38 AM [facility] RDW-SD 48.1 36.0 - 50.0 fL 11/17/2021 8:38 AM [facility] RDW-CV 13.9 11.2 - 14.8 % 11/17/2021 8:38 AM [facility] MPV 9.5 9.4 - 12.9 fL 11/17/2021 8:38 AM [facility] nRBC Absolute 0.00 0 10? 3 /uL 11/17/2021 8:38 AM [facility] nRBC Auto 0.0 0 /100 WBC 11/17/2021 8:38 AM [facility] Neutrophils % 64.4 35.0 - 70.0 % 11/17/2021 8:38 AM [facility] Lymphocytes % 19.1(L) 20.0 - 43.0 % 11/17/2021 8:38 AM [facility] Monocytes % 13.0 5.0 - 13.0 % 11/17/2021 8:38 AM [facility] Eosinophils % 2.2 0.0 - 6.0 % 11/17/2021 8:38 AM [facility] Basophil % 1.1 0.0 - 2.0 % 11/17/2021 8:38 AM [facility] Neutrophils Absolute 2.9 1.6 - 7.0 10? 3 /uL 11/17/2021 8:38 AM [facility] Lymphocyte Absolute 0.9(L) 1.1 - 3.9 10? 3 /uL 11/17/2021 8:38 AM [facility] Monocytes Absolute 0.58 0.26 - 1.07 10? 3 /uL 11/17/2021 8:38 AM [facility] Eosinophils Absolute 0.10 0.00 - 0.47 10? 3 /uL 11/17/2021 8:38 AM [facility] Basophils Absolute 0.05 0.00 - 0.08 10? 3 /uL 11/17/2021 8:38 AM [facility] Immature Granulocytes % 0.2 0.0 - 1.0 % 11/17/2021 8:38 AM [facility] Immature Granulocytes Absolute 0.01 11/17/2021 8:38 AM [facility] Blood BLOOD SPECIMEN / Unknown Venipuncture / Unknown 11/17/2021 8:23 AM T 11/17/2021 8:33 AM [facility] Valdo Arevalo MD LAB - HEMATOLOGY ORD ERABLES [facility] [address] [place] [address], [facility] [phone] * (ABNORMAL) BASIC METABOLIC PANEL (CALCIUM TOTAL) (11/17/2021 8:23 AM [facility]) Only the most recent of34 resultswithin the time period is included. BUN 9 7 - 26 mg/dL 11/17/2021 9:00 AM [facility] Creatinine 0.62(L) 0.71 - 1.16 mg/dL 11/17/2021 9:00 AM [facility] Sodium 141 136 - 145 mmol/L 11/17/2021 9:00 AM [facility] Potassium 4.1 3.5 - 4.5 mmol/L 11/17/2021 9:00 AM [facility] Chloride 112(H) 98 - 107 mmol/L 11/17/2021 9:00 AM [facility] CO2 23 22 - 29 mmol/L 11/17/2021 9:00 AM [facility] Glucose 134(H) 70 - 115 mg/dL 11/17/2021 9:00 AM [facility] Calcium 8.7 8.4 - 10.2 mg/dL 11/17/2021 9:00 AM [facility] Anion Gap 10 8 - 18 11/17/2021 9:00 AM [facility] BUN/Creatinine Ratio 15 7 - 23 11/17/2021 9:00 AM [facility] Osmolality Calculated 293 270 - 300 mOsm/kg 11/17/2021 9:00 AM [facility] eGFR by CKD-EPI >90 >=90 mL/min/1.7 3 m2 11/17/2021 9:00 AM [facility] Blood BLOOD SPECIMEN / Unknown Venipuncture / Unknown 11/17/2021 8:23 AM CDT 11/17/2021 8:33 AM [facility] Valdo Arevalo MD LAB - CHEMISTRY MIGUEL Guardado Organization Address City/State/ZIP Co de Phone Number [facility] [address] [place] [address], [facility] [phone] * CARDIAC EKG ORDER (09/21/2021 11:06 AM CDT) Only the most recent of6 resultswithin the time period is included. Narrative 09/21/2021 11:06 AM CDT Ordered by an unspecified provider. Scanned Document CARDIAC SERVICES ORD ERABLES * SARS-COV-2 (COVID-19) RAPID (09/13/2021 3:50 PM CDT) COVID-19 PCR Not detected Not detected 09/14/19 4:42 PM CDT [facility] Microbiology SPECIMEN FROM NASOPHARYNGEAL STRUCTURE / Unknown Collection / Unknown 09/13/2021 3:50 PM CDT 09/13/2021 3:59 PM CDT Narrative [facility] - 09/13/2021 4:42 PM CDT The [employer] Xpert Xpress SARS-COV-2 has been authorized by the Food and Drug Administration (FDA) under an Emergency Use Authorization (EUA). This test has been validated in accordance with the FDA's guidance document Policy for Diagnostic Testing in Laboratories Certified to perform High Complexity Testing under CLIA prior to Emergency Use Authorization for Coronavirus Disease-2019 during the Public Health Emergency issued on August 16, 2019. FDA independent review of this validation is pending. This test is only authorized for the duration of the time the declaration that circumstances exist justifying the authorization of emergency use of in vitro diagnostic tests for detection of SARS-COV-2 virus and/or diagnosis of COVID-19 infection under 564(b) (1) of the Act. 21 U.S.C. 360bbb-3 (b) (1), unless the authorization is terminated or revoked sooner. Fact Sheets for this EUA assay are available upon request. Bob Aponte III, MD LAB - MICROBIOLO GY ORDERABLES [facility] [address] [place] [address], [facility] [phone] * (ABNORMAL) CBC W/O DIFFERENTIAL (09/13/2021 7:53 AM CDT) Only the most recent of17 resultswithin the time period is included. WBC 4.8 3.5 - 10.5 10? 3 /uL 09/13/2021 8:24 AM [facility] RBC 3.25(L) 4.30 - 5.70 10? 6 /uL 09/13/2021 8:24 AM [facility] Hemoglobin 10.4(L) 12.0 - 17.6 g/dL 09/13/2021 8:24 AM [facility] Hematocrit 31.0(L) 35.2 - 51.7 % 09/13/2021 8:24 AM [facility] MCV 95.4 80.7 - 98.3 fL 09/13/2021 8:24 AM [facility] MCH 32.0 26.7 - 34.0 pg 09/13/2021 8:24 AM [facility] MCHC 33.5 30.8 - 35.9 g/dL 09/13/2021 8:24 AM [facility] Platelet Count 122(L) 150 - 400 10? 3 /uL 09/13/2021 8:24 AM [facility] RDW-SD 56.3(H) 36.0 - 50.0 fL 09/13/2021 8:24 AM [facility] RDW-CV 16.4(H) 11.2 - 14.8 % 09/13/2021 8:24 AM [facility] MPV 9.4 9.4 - 12.9 fL 09/13/2021 8:24 AM [facility] nRBC Absolute 0.00 0 10? 3 /uL 09/13/2021 8:24 AM [facility] nRBC Auto 0.0 0 /100 WBC 09/13/2021 8:24 AM [facility] Blood BLOOD SPECIMEN / Unknown Lab Venipuncture / Unknown 09/13/2021 7:53 AM CDT 09/13/2021 8:17 AM T Valdo Arevalo MD LAB - HEMATOLOGY ORD ERABLES [facility] [address] [address], [facility] [phone] * PHOSPHORUS BLOOD (09/13/2021 7:53 AM CDT) Only the most recent of28 resultswithin the time period is included. Phosphorus 3.5 2.8 - 5.1 mg/dL 09/13/2021 8:50 AM CDT [facility] Blood BLOOD SPECIMEN / Unknown Lab Venipuncture / Unknown 09/13/2021 7:53 AM CDT 09/13/2021 8:17 AM CDT Valdo Arevalo MD LAB - CHEMISTRY MIGUEL GOLD [address] [address], [facility] [phone] * MAGNESIUM BLOOD (09/13/2021 7:53 AM CDT) Only the most recent of28 resultswithin the time period is included. [facility] Magnesium 1.7 1.6 - 2.6 mg/dL 09/13/2021 8:50 AM CDT [facility] Blood BLOOD SPECIMEN / Unknown Lab Venipuncture / Unknown 09/13/2021 7:53 AM CDT 09/13/2021 8:17 AM CDT Valdo Arevalo MD LAB - CHEMISTRY MIGUEL GOLD Performing Organization Address City/[facility]/ZIP Co de Phone Number [address] [address], [facility] [phone] * EKG 12-LEAD (09/08/2021 5:56 AM CDT) Only the most recent of10 resultswithin the time period is included. Ventricular Rate 81 BPM [facility] MUSE Atrial Rate 81 BPM [facility] MUSE P-R Interval 150 ms [facility] MUSE QRS Duration ms 84 ms [facility] MUSE Q-T Interval ms 406 ms [facility] MUSE QTC Calculation (Bezet) 471 ms [facility] MUSE Calculated P Greenleaf 31 degrees [facility] MUSE Calculated R [place] 27 degrees [facility] MUSE Calculated T [place] 36 degrees [facility] MUSE Interpretation EKG SINUS RHYTHM WITH FREQUENT PREMATURE VENTRICULAR COMPLEXES OTHERWISE NORMAL ECG WHEN COMPARED WITH ECG OF 07-SEP-2021 11:21 POOR R WAVE PROGRESSION IS NO LONGER PRESENT Confirmed by Rod Friedman ([id number]) on 09/09/2021 3:18:27 PM [facility] MUSE 09/08/2021 5:56 AM CDT 09/09/2021 3:18 PM CDT Valdo Arevalo MD ECG ORDERABLES Performing Organization Address City/[facility]/ZIP Co de Phone Number [facility] MUSE * AMMONIA (09/01/2021 12:06 AM CDT) Only the most recent of3 resultswithin the time period is included. Ammonia 24 <=72 umol/L 09/01/2021 12:23 AM CDT [facility] Blood BLOOD SPECIMEN / Unknown Venipuncture / Unknown 09/01/2021 12:06 AM CDT 09/01/2021 12:12 AM CDT Summer Villagomez MD LAB - CHEMISTRY ORD ERABLES Performing Organization Address City/[facility]/ZIP Co de Phone Number [facility] [address] [id number] [phone] * XR ABDOMEN KUB PORTABLE (08/31/2021 9:07 PM CDT) Only the most recent of6 resultswithin the time period is included. Anatomical Region Laterality Modality Abdomen Radiographic Lynette ging 09/01/2021 11:4 0 AM CDT Narrative 09/01/2021 1:17 PM CDT EXAMINATION: XR ABDOMEN KUB PORTABLE HISTORY: R13.12: Oropharyngeal dysphagia COMPARISON: Portable KUB 08/30/2021. FINDINGS: Enteric tube is seen coursing below the diaphragm with tip terminating at the expected location of the gastric fundus. Report dictated by Jose R Bess M.D. (radiology tech). I, Dr. HALIMA HERRERA MD have personally reviewed and interpreted this examination/study. This report was electronically signed by HALIMA HERRERA MD ??on 09/01/2021 1:17 PM . Procedure Note Halima Herrera MD - 09/01/2021 EXAMINATION: XR ABDOMEN KUB PORTABLE HISTORY: R13.12: Oropharyngeal dysphagia COMPARISON: Portable KUB 08/30/2021. FINDINGS: Enteric tube is seen coursing below the diaphragm with tip terminatingat the expected location of the gastric fundus. Report dictated by Jose R Bess M.D. (radiology tech). I, Dr. HALIMA HERRERA MD have personally reviewed and interpreted this examination/study. This report was electronically signed by HALIMA HERRERA MD on 09/01/2021 1:17 PM . Summer Villagomez MD DIAGNOSTIC IMAGING ORDERABLES * (ABNORMAL) CULTURE SPUTUM+GRAM STAIN (08/27/2021 5:05 PM [employer]) Only the most recent of2 resultswithin the time period is included. Culture Heavy Staphylococcus aureus methicillin-resista nt (MRSA)(A) MANJIT 08/30/2021 1:38 AM T [facility] Comment:Staphylococcus aureu s methicillin-resistant (MRSA) detected by penicillin binding protein immunoassay. Contact precautions required. Conventional antibiotic susceptibility testing to follow. Culture Light normal oropharyngeal izabella MANJIT 08/30/2021 1:38 AM CDT [facility] Gram Stain Heavy Gram-positive cocci 08/30/2021 1:38 AM CDT [facility] Gram Stain >= 25 per low power field Polymorphonuclear cells 08/30/2021 1:38 AM CDT [facility] Gram Stain <10 per low power field Squamous epithelial cells 08/30/2021 1:38 AM T [facility] Microbiology SPUTUM / Unknown Collection / Unknown 08/27/2021 5:05 PM [employer] 08/27/2021 5:15 PM [employer]PER[employer] Narrative [facility] - 08/30/2021 1:38 AM CDT Methicillin-resistant Staphylococci (MRSA) are resistant to all currently available beta-lactam antibiotics with the exception of the newer cephalosporins with anti-MRSA activity. Contact precautions required. Organism Antibiotic Method Susceptibility Staphylococcus aureus methicillin-resistant (MRSA) Clindamycin MANJIT 0.25 ug/mL: Susceptible Staphylococcus aureus methicillin-resistant (MRSA) Doxycycline MANJIT <=0.5 ug/mL: Susceptible Staphylococcus aureus methicillin-resistant (MRSA) Gentamicin MANJIT <=0.5 ug/mL: Susceptible Staphylococcus aureus methicillin-resistant (MRSA) Inducible Clindamycin Resistance MANJIT NEG ug/mL: Neg Staphylococcus aureus methicillin-resistant (MRSA) Linezolid MANJIT 2 ug/mL: Susceptible Staphylococcus aureus methicillin-resistant (MRSA) Oxacillin MANJIT >=4 ug/mL: Resistant Staphylococcus aureus methicillin-resistant (MRSA) Tetracycline MANJIT <=1 ug/mL: Susceptible Staphylococcus aureus methicillin-resistant (MRSA) Trimethoprim-sulfamethoxa zole MANJIT <=10 ug/mL: Susceptible Staphylococcus aureus methicillin-resistant (MRSA) Vancomycin MANJIT <=0.5 ug/mL: Susceptible Summer Villagomez MD LAB - MICROBIOLOGY ORDERABLES [facility] [address] [place], [address] [phone] * (ABNORMAL) URINALYSIS REFLEX TO MICROSCOPIC NO CULTURE (08/27/2021 5:05 PM [employer]) Only the most recent of2 resultswithin the time period is included. Color UA Kristi(A) Straw, Yellow 08/27/2021 5:38 PM [facility] Clarity UA Slt Cloudy(A) Clear 08/27/2021 5:38 PM [facility] Specific Gary UA 1.035(H) 1.005 - 1.030 08/27/2021 5:38 PM [facility] pH UA 6.0 5.0 - 8.0 pH 08/27/2021 5:38 PM [facility] Protein UA 1+(A) Negative 08/27/2021 5:38 PM [facility] Glucose UA Negative Negative 08/27/2021 5:38 PM [facility] Ketone UA Negative Negative 08/27/2021 5:38 PM [facility] Bilirubin UA Negative Negative 08/27/2021 5:38 PM [facility] Blood UA 3+(A) Negative 08/27/2021 5:38 PM [facility] Nitrite UA Negative Negative 08/27/2021 5:38 PM [facility] Leukocyte Esterase Negative Negative 08/27/2021 5:38 PM [facility] Urobilinogen UA 4.0(A) Negative mg/dL 08/27/2021 5:38 PM [facility] RBC UA >100(A) None Seen, 0-2, 3-5 /HPF 08/27/2021 5:38 PM [facility] WBC UA 0-5 None Seen, 0-5 /HPF 08/27/2021 5:38 PM [facility] Bacteria UA Trace(A) None /HPF 08/27/2021 5:38 PM [facility] Squamous Epithelial Cells UA None Seen None Seen, 0-2, 3-5 /HPF 08/27/2021 5:38 PM [facility] Mucus UA 1+ /LPF 08/27/2021 5:38 PM [facility] Urine URINE SPECIMEN OBTAINED BY CLEAN CATCH PROCEDURE / Unknown Collection / Unknown 08/27/2021 5:05 PM [employer] 08/27/2021 5:15 PM [employer] Narrative [facility] - 08/27/2021 5:38 PM [employer] Summer Villagomez MD LAB - URINALYSIS OR DERABLES [facility] [address] [place] [address], [place] [phone] * CULTURE BLOOD (08/27/2021 5:05 PM [employer]) Only the most recent of2 resultswithin the time period is included. Culture No growth day 5 MANJIT 09/01/2021 9:00 PM CDT [facility] Blood PERIPHERAL BLOOD / Unknown Venipuncture / Unknown 08/27/2021 5:05 PM [employer] 08/27/2021 5:15 PM [employer] Summer Villagomez MD LAB - MICROBIOLOGY ORDERABLES [facility] [address] [place] [address], [facility] [phone] * XR CHEST 1VW PORTABLE (08/27/2021 4:47 PM [employer]) Only the most recent of16 resultswithin the time period is included. Anatomical Region Laterality Modality Chest Radiographic Lynette ging 08/27/2021 4:53 PM [employer] Impressions 08/28/2021 12:27 PM CDT FINDINGS/IMPRESSION: Endotracheal tube terminates in the midthoracic trachea. Gastric tube courses in the stomach, tip not imaged. Hypoinflated lungs. Slightly increased right lung haziness and basilar opacities. The left lung is clear. No pneumothorax. The cardiomediastinal silhouette is normal. The visible bony thorax is intact. Dictated by Nemesio Graves DO (radiology tech). Dr. HALIMA Londono MD have personally reviewed and interpreted this examination/study. This report was electronically signed by HALIMA HERRERA MD ??on 08/28/2021 12:27 PM . Narrative 08/28/2021 12:27 PM CDT EXAMINATION: XR CHEST 1VW PORTABLE HISTORY: D72.829: Leukocytosis, unspecified type COMPARISON: 08/26/2021 Procedure Note Halima Herrera MD - 08/28/2021 EXAMINATION: XR CHEST 1VW PORTABLE HISTORY: D72.829: Leukocytosis, unspecified type COMPARISON: 08/26/2021 FINDINGS/IMPRESSION: Endotracheal tube terminates in the midthoracic trachea. Gastric tube courses in the stomach, tip not imaged. Hypoinflated lungs. Slightly increased right lung haziness and basilar opacities. The left lung is clear. No pneumothorax. Thecardiomediastinal silhouette is normal. The visible bony thorax is intact. Dictated by Nemesio Graves DO (radiology tech). Dr. HALIMA Londono MD have personally reviewed and interpreted this examination/study. This report was electronically signed by HALIMA HERRERA MD on 08/28/2021 12:27 PM . Summer Villagomez MD DIAGNOSTIC IMAGING ORDERABLES * MRI BRAIN WWO CONTRAST (08/26/2021 11:00 PM [employer]) Anatomical Region Laterality Modality Head Magnetic Resonan ce 08/27/2021 5:07 PM [employer] Impressions 08/27/2021 5:26 PM [employer] IMPRESSION: Since prior head CT from 08/24/2021: 1.Redemonstration of evolving early subacute hematoma involving the left temporoparietal region with mild surrounding vasogenic edema and mild local mass effect as outlined. 2.No abnormal enhancement to suggest underlying enhancing mass. 3.Findings compatible with hepatic encephalopathy. This report was electronically signed by ALY MILLS ??on 08/27/2021 5:26 PM . Narrative 08/27/2021 5:26 PM [employer] MRI BRAIN WWO CONTRAST DATE: 08/26/2021 11:03 PM EXAMINATION: Magnetic resonance imaging (MRI) of the brain without and with contrast HISTORY: I61.9: Nontraumatic intracerebral hemorrhage, unspecified cerebral location, unspecified laterality TECHNIQUE: MRI of the brain was performed prior to and following the uneventful administration of 7 mL intravenous GADAVIST contrast according to a tumor protocol. COMPARISON: CT of the head from 08/25/2021. FINDINGS: Redemonstration of evolving area subacute hematoma within the left posterior parietotemporal region with central area of T1 intrinsic hyperintensity which appears dark on the T2 weighted images and surrounding thick area of T1 isointense and T2 dark area. The overall hematoma measures approximately 3.5 x 3.6 cm, (series 10, image 15). There is associated extensive susceptibility artifacts compatible with hemosiderin deposition. Surrounding T2/FLAIR hyperintensity compatible with vasogenic edema involving the adjacent left temporal, parietal, and left frontal lobes. Persistent local mass effect on the adjacent sulci and mild mass effect on the occipital horn and trigone of the left lateral ventricle. No new acute intracranial hemorrhage. Postcontrast subtraction images were performed and demonstrate no evidence of underlying abnormal enhancement within the hematoma cavity. No evidence of acute cerebral infarction is seen. The ventricles are of stable size, shape, and morphology. Redemonstration of 4 mm [id number] midline shift is again seen at the level of the foramen of Monro, (series 12, image 95). Suspected minimal cerebral hemispheric white matter FLAIR hyperintensity is a nonspecific finding. Symmetric T1 hyperintensity involving the bilateral globi pallidi compatible with hepatic encephalopathy. No enhancing lesions are identified. The corpus callosum and sella appear normal. The posterior fossa, brainstem, and craniocervical junction appear normal. Mild prominence of the optic nerve sheaths. The visualized portions of the orbits appear otherwise grossly unremarkable. Mild fluid signal in the mastoid air cells. The imaged paranasal sinuses and mastoid air cells appear otherwise grossly clear. Normal flow voids are demonstrated in the carotid arteries and basilar artery. The calvarium and visualized cervical spine appear normal. Procedure Note Aly Mills MD - 08/27/2021 MRI BRAIN WWO CONTRAST DATE: 08/26/2021 11:03 PM EXAMINATION: Magnetic resonance imaging (MRI) of the brain without and with contrast HISTORY: I61.9: Nontraumatic intracerebral hemorrhage, unspecified cerebral location, unspecified laterality TECHNIQUE: MRI of the brain was performed prior to and following the uneventful administration of 7 mL intravenous GADAVIST contrastaccording to a tumor protocol. COMPARISON: CT of the head from 08/25/2021. FINDINGS: Redemonstration of evolving area subacute hematoma within the left posterior parietotemporal region with central area of T1 intrinsic hyperintensity which appears dark on the T2 weighted images and surrounding thick area of T1 isointense and T2 dark area. The overall hematoma measures approximately 3.5 x 3.6 cm, (series 10, image 15).There is associated extensive susceptibility artifacts compatible with hemosiderin deposition. Surrounding T2/FLAIR hyperintensity compatible with vasogenic edema involving the adjacent left temporal, parietal, and left frontal lobes. Persistent local mass effect on the adjacent sulciand mild mass effect on the occipital horn and trigone of the left lateral ventricle. No new acute intracranial hemorrhage. Postcontrastsubtraction images were performed and demonstrate no evidence of underlying abnormal enhancement within the hematoma cavity. No evidence of acute cerebral infarction is seen. The ventricles are of stable size, shape, and morphology. Redemonstration of 4 [id number] midline shift is again seen at the level of the foramen of Monro,(series 12, image 95). Suspected minimal cerebral hemispheric white matter FLAIR hyperintensity is a nonspecific finding. Symmetric T1 hyperintensity involving the bilateral globi pallidi compatible with hepatic encephalopathy. No enhancing lesions are identified. The corpus callosum and sella appear normal. The posterior fossa, brainstem, and craniocervical junction appear normal. Mild prominence of the optic nerve sheaths. The visualized portions ofthe orbits appear otherwise grossly unremarkable. Mild fluid signal in the mastoid air cells. The imaged paranasal sinuses and mastoid air cells appear otherwise grossly clear. Normal flow voids are demonstrated inthe carotid arteries and basilar artery. The calvarium and visualizedcervical spine appear normal. IMPRESSION: Since prior head CT from 08/24/2021: 1.Redemonstration of evolving early subacute hematoma involving the left temporoparietal region with mild surrounding vasogenic edema and mild local mass effect as outlined. 2.No abnormal enhancement to suggest underlying enhancing mass. 3.Findings compatible with hepatic encephalopathy. This report was electronically signed by ALY MILLS on08/27/2021 5:26 PM . Gabriele Riley MD MR ORDERABLES * US ABDOMEN DOPPLER ONLY COMP (08/26/2021 12:16 PM [employer]) Anatomical Region Laterality Modality Abdomen Ultrasound 08/26/2021 1:18 PM [employer] Impressions 08/26/2021 2:31 PM [employer] IMPRESSION: 1.Hepatic cirrhosis with sequelae of portal hypertension; there is reversal of normal portal flow directionality. 2.Cholelithiasis with trace pericholecystic fluid. No further sonographic evidence of acute cholecystitis. 3.Nonvisualization of the hepatic veins. 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 4.Trace perihepatic fluid. Report dictated by Axel Weaver MD (radiology tech). This report was approved ??by Axel Weaver ?? on 08/26/2021 1:57 PM . I, Dr. TAE PICKARD have personally reviewed and interpreted this examination/study. This report was electronically signed by TAE PICKARD ??on 08/26/2021 2:31 PM . Narrative 08/26/2021 2:31 PM [employer] EXAMINATION: 1. Limited abdominal sonogram 2. Color and spectral Doppler evaluation of the hepatic vasculature HISTORY: K74.60: Cirrhosis of liver without ascites, unspecified hepatic cirrhosis type COMPARISON: CT abdomen 08/24/2021 FINDINGS: Abdomen: The liver has a coarse echotexture and nodular surface. No discrete hepatic mass or intrahepatic biliary dilation is seen. Gallstones and sludge are seen within the gallbladder. There is trace pericholecystic fluid. The gallbladder wall is normal in thickness, measuring 3 mm. The common bile duct is nondilated, measuring 5 mm. The right kidney measures 12.4 cm. Limited views of the right kidney reveal no evidence of nephrolithiasis or hydronephrosis. The spleen measures 15 cm in length. The visible pancreas is normal in echogenicity. There is trace perihepatic fluid. Liver Doppler: The hepatic veins are not identified with Color and spectral Doppler evaluation. Large gastric varices are present. The main, left, and right portal veins appear patent with reversal of the normal hepatopetal flow. The main portal vein demonstrates a normal phasic waveform and velocity measures 32.4 cm/s. The proper hepatic artery is patent and demonstrates a normal arterial waveform with brisk systolic upstroke and antegrade flow. Resistive index in the proper hepatic artery measures 0. 65. Procedure Note Tae Pickard MD - 08/26/2021 EXAMINATION: 1. Limited abdominal sonogram 2. Color and spectral Doppler evaluation of the hepatic vasculature HISTORY: K74.60: Cirrhosis of liver without ascites, unspecified hepatic cirrhosis type COMPARISON: CT abdomen 08/24/2021 FINDINGS: Abdomen: The liver has a coarse echotexture and nodular surface. No discrete hepatic mass or intrahepatic biliary dilation is seen. Gallstones and sludge are seen within the gallbladder. There is trace pericholecystic fluid. The gallbladder wall is normal in thickness, measuring 3 mm. The common bile duct is nondilated, measuring 5 mm. The right kidney measures 12.4 cm. Limited views of the right kidney reveal no evidence of nephrolithiasis or hydronephrosis. The spleen measures 15 cm in length. The visible pancreas is normal inechogenicity. There is trace perihepatic fluid. Liver Doppler: The hepatic veins are not identified with Color and spectral Doppler evaluation. Large gastric varices are present. The main, left, and right portal veins appear patent with reversal ofthe normal hepatopetal flow. The main portal vein demonstrates a normalphasic waveform and velocity measures 32.4 cm/s. The proper hepatic artery is patent and demonstrates a normal arterial waveform with brisk systolic upstroke and antegrade flow. Resistiveindex in the proper hepatic artery measures 0. 65. IMPRESSION: 1.Hepatic cirrhosis with sequelae of portal hypertension; there is reversal of normal portal flow directionality. 2.Cholelithiasis with trace pericholecystic fluid. No furthersonographic evidence of acute cholecystitis. 3.Nonvisualization of the hepatic veins. 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 4.Trace perihepatic fluid. Report dictated by Axel Weaver MD (radiology tech). This report was approved by Axel Weaver on 08/26/2021 1:57 PM . I, Dr. TAE PICKARD have personally reviewed and interpreted this examination/study. This report was electronically signed by TAE PICKARD on 08/26/2021 2:31PM . Gabriele Riley MD US ORDERABLES * US ABDOMEN LIMITED (08/26/2021 12:16 PM [employer]) Anatomical Region Laterality Modality Abdomen Ultrasound 08/26/2021 1:18 PM [employer] Impressions 08/26/2021 2:31 PM [employer] IMPRESSION: 1.Hepatic cirrhosis with sequelae of portal hypertension; there is reversal of normal portal flow directionality. 2.Cholelithiasis with trace pericholecystic fluid. No further sonographic evidence of acute cholecystitis. 3.Nonvisualization of the hepatic veins. 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 4.Trace perihepatic fluid. Report dictated by Axel Weaver MD (radiology tech). This report was approved ??by Axel Weaver ?? on 08/26/2021 1:57 PM . I, Dr. TAE PICKARD have personally reviewed and interpreted this examination/study. This report was electronically signed by TAE PICKARD ??on 08/26/2021 2:31 PM . Narrative 08/26/2021 2:31 PM [employer] EXAMINATION: 1. Limited abdominal sonogram 2. Color and spectral Doppler evaluation of the hepatic vasculature HISTORY: K74.60: Cirrhosis of liver without ascites, unspecified hepatic cirrhosis type COMPARISON: CT abdomen 08/24/2021 FINDINGS: Abdomen: The liver has a coarse echotexture and nodular surface. No discrete hepatic mass or intrahepatic biliary dilation is seen. Gallstones and sludge are seen within the gallbladder. There is trace pericholecystic fluid. The gallbladder wall is normal in thickness, measuring 3 mm. The common bile duct is nondilated, measuring 5 mm. The right kidney measures 12.4 cm. Limited views of the right kidney reveal no evidence of nephrolithiasis or hydronephrosis. The spleen measures 15 cm in length. The visible pancreas is normal in echogenicity. There is trace perihepatic fluid. Liver Doppler: The hepatic veins are not identified with Color and spectral Doppler evaluation. Large gastric varices are present. The main, left, and right portal veins appear patent with reversal of the normal hepatopetal flow. The main portal vein demonstrates a normal phasic waveform and velocity measures 32.4 cm/s. The proper hepatic artery is patent and demonstrates a normal arterial waveform with brisk systolic upstroke and antegrade flow. Resistive index in the proper hepatic artery measures 0. 65. Procedure Note Tae Pickard MD - 08/26/2021 EXAMINATION: 1. Limited abdominal sonogram 2. Color and spectral Doppler evaluation of the hepatic vasculature HISTORY: K74.60: Cirrhosis of liver without ascites, unspecified hepatic cirrhosis type COMPARISON: CT abdomen 08/24/2021 FINDINGS: Abdomen: The liver has a coarse echotexture and nodular surface. No discrete hepatic mass or intrahepatic biliary dilation is seen. Gallstones and sludge are seen within the gallbladder. There is trace pericholecystic fluid. The gallbladder wall is normal in thickness, measuring 3 mm. The common bile duct is nondilated, measuring 5 mm. The right kidney measures 12.4 cm. Limited views of the right kidney reveal no evidence of nephrolithiasis or hydronephrosis. The spleen measures 15 cm in length. The visible pancreas is normal inechogenicity. There is trace perihepatic fluid. Liver Doppler: The hepatic veins are not identified with Color and spectral Doppler evaluation. Large gastric varices are present. The main, left, and right portal veins appear patent with reversal ofthe normal hepatopetal flow. The main portal vein demonstrates a normalphasic waveform and velocity measures 32.4 cm/s. The proper hepatic artery is patent and demonstrates a normal arterial waveform with brisk systolic upstroke and antegrade flow. Resistiveindex in the proper hepatic artery measures 0. 65. IMPRESSION: 1.Hepatic cirrhosis with sequelae of portal hypertension; there is reversal of normal portal flow directionality. 2.Cholelithiasis with trace pericholecystic fluid. No furthersonographic evidence of acute cholecystitis. 3.Nonvisualization of the hepatic veins. 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 4.Trace perihepatic fluid. Report dictated by Axel Weaver MD (radiology tech). This report was approved by Axel Weaver on 08/26/2021 1:57 PM . I, Dr. TAE PICKARD have personally reviewed and interpreted this examination/study. This report was electronically signed by TAE PICKARD on 08/26/2021 2:31PM . Gabriele Riley MD US ORDERABLES * (ABNORMAL) GLUCOSE - POINT OF CARE (08/26/2021 8:46 AM [employer]) Only the most recent of6 resultswithin the time period is included. Glucose WB/POC 118(H) 70 - 115 mg/dL 08/26/2021 8:50 AM [employer]PER[employer]OR [facility] Specimen Type Venous 08/26/2021 8:50 AM [employer]PER[employer] [facility] Blood BLOOD SPECIMEN / Unknown 08/26/2021 8:46 AM [employer] 08/26/2021 8:50 AM [employer] Gabriele Riley MD LAB - POINT OF CARE ORDERABLES [facility] [address] [place] [address], [facility] [phone] * HEMOGLOBIN A1C (08/26/2021 12:32 AM [employer]) Hemoglobin A1c 5.1 <=5.6 % 08/26/2021 10:53 AM [facility] Estimated Average Glucose 100 mg/dL 08/26/2021 10:53 AM [facility] Comment: HbA1c Interpretation: Normal : < 5.7% Pre-diabetes: 5.7-6.4% Diabetes: Equal to or greater than 6.5% Test results diagnostic of diabetes should be repeated for confirmation. Treatment target values recommended by ADA and other clinical organizations should be used to evaluate metabolic control in patients. Reference: [place] [employer], Standards of Care in Diabetes -2020 In patients 70 years and older consider HbA1c target range of 7.0-7.5% (Reference: Yusef Marquis et al. JAMDA. 2012) The Sebia assay for the measurement of HbA1c is a National Glycohemoglobin Standardization Program (NGSP) certified method. Blood BLOOD SPECIMEN / Unknown Venipuncture / Unknown 08/26/2021 12:32 AM [employer] 08/26/2021 12:55 AM [employer] Gabriele Riley MD LAB - CHEMISTRY ORDE [facility] Organization Address City/State/ZIP Co de Phone Number [facility] [address] [place] [phone], [facility] [facility] [phone] * ECHO COMPLETE W BUBBLE STUDY (08/25/2021 1:56 PM FILTER PLANT SUPERVISOR) Anatomical Region Laterality Modality Chest Echo 08/25/2021 1:22 PM [employer] PL[employer] SUPERVISOR Narrative Procedure Note Jose R Salcedo MD - 08/26/2021 Gabriele Riley MD ECHOCARDIOGRAPHY RAD IANT * ALCOHOL ETHYL BLOOD (08/25/2021 12:09 PM [employer] SUPER[employer]) Only the most recent of2 resultswithin the time period is included. Ethanol (mg/dL) <10 <10 mg/dL 12:48 PM FILTER PLANT SUPERVISOR [facility] Ethanol Calculated (g/dL) <0.010 <0.010 g/dL 08/25/2021 12:48 PM [facility] Blood BLOOD SPECIMEN / Unknown Venipuncture / Unknown 08/25/2021 12:09 PM [employer] SUPER[employer] 08/25/2021 12:25 PM FILTER PLANT SUPERVISOR Narrative [facility] - 08/25/2021 12:48 PM [employer] SUPER[employer]OR Ethanol Interp <10: None Detected. Depression of NANOTECHNOLOGY ENGINEERING TECHNICIAN: >100 mg/dl Potentially Critical: >250 mg/dl Potentially Fatal >400 mg/dl Ethanol in the patient's blood will contribute to the osmolar gap. Ethanol's contribution to the osmolar gap can be estimated by dividing the concentration of ethanol in mg/dL by 4.6. This test is for clinical use only and does not equal a AKUA for legal purposes. Gabriele Riley MD LAB - CHEMISTRY MIGUEL GOLD Performing Organization Address City/[facility]/ZIP Co de Phone Number [address] [address], [facility] [phone] * TROPONIN I (08/25/2021 4:20 AM FIL[employer] SUPER[employer]OR) Only the most recent of3 resultswithin the time period is included. Troponin I <0.010 <0.032 ng/mL 08/25/2021 5:23 AM FILTER PLANT SUPER[employer]OR [facility] Blood BLOOD SPECIMEN / Unknown Venipuncture / Unknown 08/25/2021 4:20 AM FIL[employer] PLANT SUPER[employer]OR 08/25/2021 4:37 AM FILTER PLANT SUPERVISOR Thien Augustin MD LAB - CHEMISTRY MIGUEL GOLD Performing Organization Address [facility] Co de Phone Number [address] [address], [facility] [phone] * CT HEAD WO CONTRAST (08/25/2021 2:23 AM FIL[employer] PL[employer] SUPER[employer]OR) Only the most recent of3 resultswithin the time period is included. Anatomical Region Laterality Modality Head Computed Tomogra phy 08/25/2021 2:34 AM FIL[employer] PLANT SUPERVISOR Impressions 08/25/2021 9:44 AM FILTER PLANT SUPERVISOR IMPRESSION: 1. Grossly unchanged large intraparenchymal hematoma centered in the left parietotemporal lobe, with moderate mass effect upon the adjacent structures and unchanged 5 mm left to right midline shift. Report dictated by Meena Wall MD (radiology tech). I, Dr. PHILLY TEJADA M.D. have personally reviewed and interpreted this examination/study. This report was electronically signed by PHILLY TJEADA M.D. ??on 08/25/2021 9:44 AM . Narrative 08/25/2021 9:44 AM FILTER PLANT SUPERVISOR EXAMINATION: Computed tomography (CT) of the head without contrast HISTORY: I61.9: Nontraumatic intracerebral hemorrhage, unspecified cerebral location, unspecified laterality TECHNIQUE: CT of the head was performed without contrast according to standard protocol. COMPARISON: CT brain stroke dated 08/24/2021 FINDINGS: Grossly unchanged large intraparenchymal hematoma measuring 3.3 x 3.6 x 3.7 cm (AP x TV x CC, series 4 image 60, series 5 image 45) centered in the left parietotemporal lobe, with moderate surrounding edema and mass effect on the adjacent left lateral ventricle trigone and cerebral sulci. There is no midline shift. There is mild cerebral volume loss with associated ex vacuo ventricular dilatation. There is no evidence of hydrocephalus. The basilar cisterns are patent. The chavis-white matter differentiation otherwise appears normal. Periventricular white matter hypoattenuation is indicative of chronic small vessel ischemic disease. There is vascular calcification of the carotid siphons. The visualized portions of the orbits, paranasal sinuses, and mastoids appear normal. No acute fracture is identified. Chronic fracture deformity of bilateral nasal bones. Mild rightward deviation of nasal septum. Procedure Note Philly Tejada MD - 08/25/2021 EXAMINATION: Computed tomography (CT) of the head without contrast HISTORY: I61.9: Nontraumatic intracerebral hemorrhage, unspecified cerebral location, unspecified laterality TECHNIQUE: CT of the head was performed without contrast according to standard protocol. COMPARISON: CT brain stroke dated 08/24/2021 FINDINGS: Grossly unchanged large intraparenchymal hematoma measuring 3.3 x 3.6 x 3.7 cm (AP x TV x CC, series 4 image 60, series 5 image 45) centered in the left parietotemporal lobe, with moderate surrounding edema and mass effect on the adjacent left lateral ventricle trigone and cerebralsulci. There is no midline shift. There is mild cerebral volume loss with associated ex vacuo ventricular dilatation. There is no evidence of hydrocephalus. The basilar cisterns are patent. The chavis-white matter differentiation otherwise appears normal. Periventricular white matter hypoattenuation is indicative of chronic small vessel ischemic disease. There is vascular calcification of the carotid siphons. The visualized portions of the orbits, paranasal sinuses, and mastoids appear normal. No acute fracture is identified. Chronic fracturedeformity of bilateral nasal bones. Mild rightward deviation of nasal septum. IMPRESSION: 1. Grossly unchanged large intraparenchymal hematoma centered in theleft parietotemporal lobe, with moderate mass effect upon the adjacent structures and unchanged 5 mm left to right midline shift. Report dictated by Meena Wall MD (radiology tech). I, Dr. PHILLY TEJADA M.D. have personally reviewed and interpreted this examination/study. This report was electronically signed by PHILLY TEJADA M.D. on 08/25/2021 9:44 AM . Thien Augustin MD CT ORDERABLES * (ABNORMAL) BLOOD GASES ART + COOX PANEL (08/24/2021 10:02 PM [facility]) Only the most recent of2 resultswithin the time period is included. pH Arterial 7.50(H) 7.35 - 7.45 pH 08/24/2021 10:15 PM [facility] pO2 Arterial 193(H) 80 - 100 mmHg 08/24/2021 10:15 PM [facility] pCO2 Arterial 27(L) 35 - 45 mmHg 10:15 PM [facility] HCO3 Arterial 21 20 - 30 mmol/l 08/24/2021 10:15 PM [facility] BE Arterial -0.7 -2.0 - 2.0 mmol/L 08/24/2021 10:15 PM [facility] Oxyhemoglobin Arterial 97.7 % 08/24/2021 10:15 PM [facility] Dexoyhemoglobin (HHB) % 0.0 % 08/24/2021 10:15 PM [facility] Methemoglobin 1.0 0.0 - 2.0 % 08/24/2021 10:15 PM [facility] Carboxyhemoglobin 1.3 0.0 - 2.0 % 2021 10:15 PM [facility] O2 Content Arterial 19.6 Interpret within clinical context mg/dL 08/24/2021 10:15 PM [facility] Hemoglobin by COOX 14.0 12.0 - 17.6 g/dL 08/24/2021 10:15 PM [facility] O2 Saturation Arterial 100 90 - 100 % 08/24/2021 10:15 PM FIL[employer] SUPER[employer]OR [facility] FI O2 Arterial 40.0 % 08/24/2021 10:15 PM [facility] Blood, arterial ARTERIAL BLOOD SPECIMEN / Unknown Arterial Puncture / Unknown 08/24/2021 10:02 PM [employer] SUPER[employer]OR 08/24/2021 10:10 PM FILTER [employer] SUPERVISOR Narrative [facility] - 08/24/2021 10:15 PM [employer] SUPERVISOR Carboxyhemoglobin Normal Concentration: Non-smokers: 0-2%; Smokers: 0-9%; Toxic: >20% Thien Augustin MD LAB - BLOOD GASES OR DERABLES Performing Organization Address [facility] Co de Phone Number [facility] [address] [place] [address], [facility] [phone] * DRUG SCREEN EXPANDED TOXICOLOGY URINE PANEL (08/24/2021 7:45 PM [employer] SUPER[employer]OR) Drug Screen Expanded See Scanned Report 08/25/2021 10:24 AM [facility] REF LAB NON INTERF Urine URINE / Unknown Collection / Unknown 08/24/2021 7:45 PM FIL[employer] PL[employer] SUPERVISOR 08/24/2021 7:51 PM FILTER PL[employer] SUPERVISOR Thien Augustin MD LAB - URINE CHEMISTR Y ORDERABLES Performing Organization Address [facility] Co de Phone Number [facility] REF LAB NON INTERF [address] [place] [address], [place] [phone] * (ABNORMAL) URINE DRUG SCREEN IMMUNOASSAY (08/24/2021 7:45 PM [employer]PER[employer]) Only the most recent of2 resultswithin the time period is included. Amphetamines Screen Urine Positive(A) Negative : < 1000 ng/mL 08/24/2021 8:08 PM [facility] Comment: Positive urine amphetamine screening results should be confirmed by another generally accepted non-immunological method such as gas chromatography or mass spectrometry. ? Barbiturates Screen Urine Negative Negative : < 200 ng/mL 08/24/2021 8:08 PM [facility] Benzodiazepine Screen Urine Positive(A) Negative : < 200 ng/mL 08/24/2021 8:08 PM [facility] Comment: Positive urine benzodiazepine screening results should be confirmed by another generally accepted non-immunological method such as gas chromatography or mass spectrometry. ? Opiates Urine Negative Negative : < 300 ng/mL 08/24/2021 8:08 PM [facility] Cocaine Metabolites Urine Negative Negative : < 300 ng/mL 08/24/2021 8:08 PM [facility] Phencyclidine Screen Urine Negative Negative : < 25 ng/ml 08/24/2021 8:08 PM [facility] Cannabinoids Screen Urine Negative Negative : <50 ng/mL 08/24/2021 8:08 PM [facility] Methadone Screen Urine Negative Negative : < 300 ng/mL 08/24/2021 8:08 PM [facility] Fentanyl Screen Urine Negative Negative : <1.0 ng/mL 08/24/2021 8:08 PM [facility] Urine URINE / Unknown Collection / Unknown 08/24/2021 7:45 PM [facility] 08/24/2021 7:[address] [facility] - 08/24/2021 8:08 PM [facility] The Urine Toxicology Screening Panel does not screen for Propoxyphene, Meprobamate, Carisoprodol, Trazodone, xabn-tel-bndehcx medications and/or volatiles (Acetone, Isopropanol, Methanol or Ethylene Glycol). Ethanol, Salicylate, Acetaminophen, Tricyclic Antidepressants and several therapeutic drugs may be individually assayed in serum or plasma specimen. Toxicology testing by the [facility] is an aid to medical diagnosis and treatment of patients. No documented chain of custody was maintained. Results are intended to be used for clinical purposes only. ? Thien Augustin MD LAB - URINE CHEMISTR Y ORDERABLES Performing Organization Address [facility] Co de Phone Number [facility]ATORY [facility] [address] [place] [address], [place] [phone] * TYPE + SCREEN PANEL (08/24/2021 7:36 PM FIL[employer] PL[employer] SUPER[employer]OR) Only the most recent of4 resultswithin the time period is included. [facility] Antibody Screen NEG 8:27 PM FILTER PLANT SUPERVISOR [facility] BLOOD BANK LAB ABO Rh O POS 08/24/2021 8:27 PM FILTER PLANT SUPERVISOR [facility] BLOOD BANK LAB Blood Bank BLOOD SPECIMEN / Unknown Venipuncture / Unknown 08/24/2021 7:36 PM FIL[employer] PL[employer] SUPERVISOR 08/24/2021 7:43 PM FIL[employer] PL[employer] SUPERVISOR Thien Augustin MD LAB - BLOOD BANK ORD ERABLES Performing Organization Address [facility] de Phone Number [facility] BLOOD BANK LAB [address] [place] [address], [place] [phone] * LACTIC ACID BLOOD (08/24/2021 7:36 PM FILTER PLANT SUPERVISOR) [facility] Lactic Acid-Stat 1.3 <=2.0 mmol/L 08/24/2021 8:21 PM FILTER PLANT SUPERVISOR [facility]PITAL Blood BLOOD SPECIMEN / Unknown Venipuncture / Unknown 08/24/2021 7:36 PM FILTER PLANT SUPERVISOR 08/24/2021 7:42 PM FILTER PLANT SUPERVISOR Thien Augustin MD LAB - CHEMISTRY ORDE ALLA Performing Organization Address [facility] de Phone Number [facility] H[facility]PITAL [address] [place] [address], [facility] [phone] * (ABNORMAL) CK BLOOD (08/24/2021 7:36 PM FIL[employer] PL[employer] SUPERVISOR) CK Total 409(H) 30 - 200 U/L 08/24/2021 8:01 PM FIL[employer] PLANT SUPERVISOR [facility] Blood BLOOD SPECIMEN / Unknown Venipuncture / Unknown 08/24/2021 7:36 PM FIL[employer] PL[employer] SUPERVISOR 08/24/2021 7:41 PM FIL[employer] PL[employer] SUPERVISOR Thien Augustin MD LAB - CHEMISTRY MIGUEL GOLD [address] [address], [facility] [phone] * (ABNORMAL) SALICYLATE LEVEL BLOOD (08/24/2021 7:36 PM FIL[employer] PL[employer] SUPERVISOR) Salicylate <5(L) 15 - 30 mg/dL 08/24/2021 8:01 PM [facility] Blood BLOOD SPECIMEN / Unknown Venipuncture / Unknown 08/24/2021 7:36 PM FILTER PL[employer] SUPERVISOR 08/24/2021 7:41 PM FILTER PLANT SUPERVISOR [facility] - 08/24/2021 8:01 PM FIL[employer] PL[employer] SUPERVISOR This test is not intended for use with low-dose aspirin therapy. Most patients on low-dose aspirin for cardiovascular prophylaxis will have serum concentrations near or below the lower limit of the analytical range. Thien Augustin MD LAB - CHEMISTRY MIGUEL GOLD [address] [address], [facility] [phone] * ACETAMINOPHEN LEVEL (08/24/2021 7:36 PM [employer] SUPERVISOR) Acetaminophen <3.0 <3.0 ug/mL 08/24/2021 8:01 PM FILTER PLANT SUPERVISOR [facility] Blood BLOOD SPECIMEN / Unknown Venipuncture / Unknown 08/24/2021 7:36 PM FIL[employer] PL[employer] SUPERVISOR 08/24/2021 7:41 PM FIL[employer] PL[employer] SUPERVISOR Narrative [facility] - 08/24/2021 8:01 PM FIL[employer] SUPERVISOR Acetaminophen Toxicity Levels (Hours Post Ingestion): ? >200 ug/mL at 4 hours ? >100 ug/mL at 8 hours ? >50 ug/mL at 12 hours For acute ingestion, please refer to Acetaminophen nomogram to determine the risk of toxicity based on time since ingestion and acetaminophen level (see link provided). Note the nomogram disclaimer. WARNING: Assessing the potential toxicity of an acetaminophen level on a standard risk nomogram must take into consideration many factors including any uncertainty of the time since ingestion or the possibility of other medications that may alter the peak level. Contact the [facility] at or reserved for healthcare professionals to assist you in evaluating potentially toxic acetaminophen levels. Thien Augustin MD LAB - CHEMISTRY MIGUEL GOLD [facility] Organization Address City/State/ZIP Co de Phone Number [address] [address], [facility] [phone] * CT CHEST ABDOMEN PELVIS W CONT (08/24/2021 7:31 PM FIL[employer] SUPERVISOR) Only the most recent of2 resultswithin the time period is included. Anatomical Region Laterality Modality Chest, Abdomen, Pelvis Computed Tomography 08/24/2021 7:32 PM FIL[employer] PL[employer] SUPERVISOR Impressions 08/25/2021 9:42 AM FIL[employer] PLANT SUPERVISOR Impression: 1.No acute finding within the chest. 2.Hepatic cirrhosis with sequela of portal hypertension including splenomegaly and dilated and markedly tortuous splenic vein. 3.A 0.5 cm hyperdense focus in the cecum was not present previously and could represent an ingested object. Report drafted by Nelson Rader (resident) I, Dr. PRANAY GUAMAN MD have personally reviewed and interpreted this examination/study. This report was electronically signed by PRANAY GUAMAN MD ??on 08/25/2021 9:42 AM . Narrative 08/25/2021 9:42 AM FILTER PL[employer] SUPERVISOR Procedure Information DATE: 08/24/2021 7:32 PM EXAMINATION: Computed tomography (CT) of the chest, abdomen, and pelvis with contrast TECHNIQUE: CT of the chest, abdomen, and pelvis was performed after the uneventful administration of 100 mL of Isovue 370 intravenous contrast according to standard protocol. Clinical Information HISTORY: T5: Intentional drug overdose, 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 COMPARISON: CT chest, abdomen and pelvis dated 10/02/2018 Findings Chest: Lines/Tubes: Endotracheal tube terminates in the midthoracic trachea. Enteric tube terminates in the stomach. Lower neck and axillae: Normal. Mediastinum and Dena: No enlarged lymph nodes are present. Heart and Pericardium: The cardiac chambers are normal in size. No pericardial fluid or thickening is present. Lung Parenchyma, Airways, and Pleural Spaces: There is bilateral dependent atelectasis. There is no pleural effusion or pneumothorax. 3 mm right upper lobe nodule along the minor fissure (series 4 image 61). Abdomen/pelvis: Hepatobiliary: The liver is shrunken with nodular surface consistent with cirrhosis. The gallbladder is mildly distended without thickened wall. No discrete hepatic mass is seen. The portal vein is patent. The splenic vein is tortuous and markedly dilated. Pancreas: Normal. Spleen: The spleen is mildly enlarged measuring 15 cm craniocaudally. Kidneys: Normal. Adrenals: Normal. Retroperitoneum/peritoneum: No free air or fluid. Enlarged retroperitoneal lymph nodes, for example left para-aortic 1.2 cm (series 3 image 145), left common iliac 1.2 cm (image 155). Gastrointestinal: The stomach and visualized loops of bowel are unremarkable. Nondilated bowel loops are seen. A 0.5 cm hyperdense object in the cecum and could represent an ingested object (series 3 image 159). This was not present previously. Pelvic Structures: A bladder Harrington catheter is in place. Vasculature: Normal. Bones: The visible osseous structures are intact. Lumbar scoliosis is seen. Partially imaged degenerative changes of the cervical spine. Soft tissues: Normal. Procedure Note Pranay Guaman MD - 08/25/2021 Procedure Information DATE: 08/24/2021 7:32 PM EXAMINATION: Computed tomography (CT) of the chest, abdomen, and pelvis with contrast TECHNIQUE: CT of the chest, abdomen, and pelvis was performed after the uneventful administration of 100 mL of Isovue 370 intravenous contrast according to standard protocol. Clinical Information HISTORY: T5: Intentional drug overdose, 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 COMPARISON: CT chest, abdomen and pelvis dated 10/02/2018 Findings Chest: Lines/Tubes: Endotracheal tube terminates in the midthoracic trachea. Enteric tube terminates in the stomach. Lower neck and axillae: Normal. Mediastinum and Dena: No enlarged lymph nodes are present. Heart and Pericardium: The cardiac chambers are normal in size. No pericardial fluid or thickening is present. Lung Parenchyma, Airways, and Pleural Spaces: There is bilateral dependent atelectasis. There is no pleural effusion or pneumothorax. 3 mm right upper lobe nodule along the minor fissure (series 4 image61). Abdomen/pelvis: Hepatobiliary: The liver is shrunken with nodular surface consistent with cirrhosis.The gallbladder is mildly distended without thickened wall. No discrete hepatic mass is seen. The portal vein is patent. The splenic vein is tortuous and markedly dilated. Pancreas: Normal. Spleen: The spleen is mildly enlarged measuring 15 cm craniocaudally. Kidneys: Normal. Adrenals: Normal. Retroperitoneum/peritoneum: No free air or fluid. Enlarged retroperitoneal lymph nodes, for example left para-aortic 1.2 cm (series 3 image 145), left common iliac 1.2 cm (image 155). Gastrointestinal: The stomach and visualized loops of bowel are unremarkable. Nondilated bowel loops are seen. A 0.5 cm hyperdense object in the cecum and could represent an ingested object (series 3 image 159). This was not present previously. Pelvic Structures: A bladder Harrington catheter is in place. Vasculature: Normal. Bones: The visible osseous structures are intact. Lumbar scoliosis is seen. Partially imaged degenerative changes of the cervical spine. Soft tissues: Normal. Impression: 1.No acute finding within the chest. 2.Hepatic cirrhosis with sequela of portal hypertension including splenomegaly and dilated and markedly tortuous splenic vein. 3.A 0.5 cm hyperdense focus in the cecum was not present previously and could represent an ingested object. Report drafted by Nelson Rader (resident) I, Dr. PRANAY GUAMAN MD have personally reviewed and interpreted this examination/study. This report was electronically signed by PRANAY GUAMAN MD on08/25/2021 9:42 AM . Thien Augustin MD CT ORDERABLES * CT ANGIO BRAIN AND NECK (08/24/2021 7:30 PM [employer]PER[employer]) Anatomical Region Laterality Modality Head Computed Tomogra phy 08/24/2021 7:40 PM FIL[employer] SUPERVISOR Impressions 08/25/2021 8:45 AM FIL[employer] PL[employer] SUPERVISOR IMPRESSION: 1.The left A1 and A2 segments are severely hypoplastic with diminutive opacification. There are collaterals arising from the right A2 and A3 segments which supply the left anterior cerebral artery zone. These findings could be congenital/developmental. 2.No angiographic spot sign in the known left parietotemporal intraparenchymal hemorrhage to suggest active bleeding. 3.No aneurysm or AVM. Findings were discussed with Dr. Vela by Dr. Graves at 7:33 PM on 08/24/2021 via telephone with readback comprehension and verification. Dictated by Nemesio Graves DO (radiology tech) I, Dr. PHILLY TEJADA M.D. have personally reviewed and interpreted this examination/study. This report was electronically signed by PHILLY TEJADA M.D. ??on 08/25/2021 8:45 AM . Narrative 08/25/2021 8:45 AM FILTER PL[employer] SUPERVISOR EXAMINATION: CT angiography of the head with contrast CT angiography of the neck with contrast HISTORY: T50.902A: Intentional drug overdose, 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 TECHNIQUE: CT angiography of the head and neck was obtained after the uneventful administration of 100 mL Isovue 370 intravenous contrast. Three dimensional postprocessing was performed by the technologist and sent to the workstation for review. COMPARISON: CT head without contrast dated 08/24/2021 FINDINGS: No soft tissue abnormalities are identified in the neck. Periodontal disease. Advanced multilevel degenerative changes throughout the cervical spine. Endotracheal tube terminates in the midthoracic trachea. Large amount of secretions in the oropharynx. Partially visualized orogastric tube. Angiographic findings: The visible aortic arch appears normal. The configuration of the brachiocephalic vessels is typical. The innominate artery and both subclavian arteries appear normal. There is atherosclerotic disease of the right carotid bifurcation and origin of the right internal carotid artery without focal stenosis by NASCET criteria. The right common and internal carotid arteries otherwise appear normal. The proximal portion of the left common carotid artery is obscured by beam hardening artifact. There is atherosclerotic disease of the left carotid bifurcation and origin of the left internal carotid artery without focal stenosis by NASCET criteria. The left common and internal carotid arteries otherwise appear normal. The cervical vertebral arteries appear normal. There is atherosclerotic disease involving the distal internal carotid arteries, mild on the right and moderate on the left. The middle cerebral arteries are normal. The right anterior cerebral artery is normal. The left A1 and A2 segments are severely hypoplastic with diminutive opacification. There are collaterals arising from the right A2 and A3 segments which supply the left anterior cerebral artery zone. The distal vertebral arteries appear normal. The basilar artery and posterior cerebral arteries appear normal. No aneurysms, spot sign, or signs of a high flow vascular malformation are identified in the known left parietotemporal intraparenchymal hemorrhage. Procedure Note Philly Tejada MD - 08/25/2021 EXAMINATION: CT angiography of the head with contrast CT angiography of the neck with contrast HISTORY: T50.902A: Intentional drug overdose, 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 TECHNIQUE: CT angiography of the head and neck was obtained after the uneventful administration of 100 mL Isovue 370 intravenous contrast.Three dimensional postprocessing was performed by the technologist and sent to the workstation for review. COMPARISON: CT head without contrast dated 08/24/2021 FINDINGS: No soft tissue abnormalities are identified in the neck. Periodontal disease. Advanced multilevel degenerative changes throughout thecervical spine. Endotracheal tube terminates in the midthoracic trachea. Large amount of secretions in the oropharynx. Partially visualized orogastric tube. Angiographic findings: The visible aortic arch appears normal. The configuration of the brachiocephalic vessels is typical. The innominate artery and both subclavian arteries appear normal. There is atherosclerotic disease ofthe right carotid bifurcation and origin of the right internal carotidartery without focal stenosis by NASCET criteria. The right common and internal carotid arteries otherwise appear normal. The proximal portion of theleft common carotid artery is obscured by beam hardening artifact. There is atherosclerotic disease of the left carotid bifurcation and origin ofthe left internal carotid artery without focal stenosis by NASCET criteria. The left common and internal carotid arteries otherwise appear normal.The cervical vertebral arteries appear normal. There is atherosclerotic disease involving the distal internal carotid arteries, mild on the right and moderate on the left. The middlecerebral arteries are normal. The right anterior cerebral artery is normal. The left A1 and A2 segments are severely hypoplastic with diminutive opacification. There are collaterals arising from the right A2 and A3 segments which supply the left anterior cerebral artery zone. The distal vertebral arteries appear normal. The basilar artery and posterior cerebral arteries appear normal. No aneurysms, spot sign, or signs of a high flow vascular malformation are identified in the known left parietotemporal intraparenchymal hemorrhage. IMPRESSION: 1.The left A1 and A2 segments are severely hypoplastic with diminutive opacification. There are collaterals arising from the right A2 and A3 segments which supply the left anterior cerebral artery zone. These findings could be congenital/developmental. 2.No angiographic spot sign in the known left parietotemporal intraparenchymal hemorrhage to suggest active bleeding. 3.No aneurysm or AVM. Findings were discussed with Dr. Vela by Dr. Graves at 7:33 PMon 08/24/2021 via telephone with readback comprehension and verification. Dictated by Nemesio Graves DO (radiology tech) [place], Dr. PHILLY TEJADA M.D. have personally reviewed and interpreted this examination/study. This report was electronically signed by PHILLY TEJADA M.D. on 08/25/2021 8:45 AM . Gabriele Riley MD CT ORDERABLES * CT BRAIN - Stroke (08/24/2021 7:16 PM [employer]TER [employer]ANT SUPERVISOR) Anatomical Region Laterality Modality Head Computed Tomogra phy 08/24/2021 7:28 PM [employer] SUPERVISOR Impressions 08/25/2021 8:30 AM [employer] SUPERVISOR IMPRESSION: 1. Acute intraparenchymal hematoma in the left posterior parietotemporal lobes measuring approximately 3.4 x 3.6 x 3.7 cm with mild surrounding vasogenic edema. Mass effect causes 5 mm left to right midline shift. Findings were discussed with Dr. Vela by Dr. Graves at 7:33 PM on 08/24/2021 via telephone with readback comprehension and verification. Dictated by Nemesio Graves DO (founder ceo & president) [place], Dr. PHILLY TEJADA M.D. have personally reviewed and interpreted this examination/study. This report was electronically signed by PHILLY TEJADA M.D. ??on 08/25/2021 8:30 AM . Narrative 08/25/2021 8:30 AM [employer] SUPERVISOR EXAMINATION: Computed tomography (CT) of the head without contrast HISTORY: Code Stroke TECHNIQUE: CT of the head was performed without contrast according to standard protocol. COMPARISON: CT head without contrast dated 10/06/2018 FINDINGS: Intraparenchymal hemorrhage in the left posterior parietotemporal lobes measuring approximately 3.4 x 3.6 x 3.7 cm with mild surrounding vasogenic edema. No intraventricular extension. Mild mass effect on the surrounding brain parenchyma and occipital horn of the left lateral ventricle. There is mass effect causing displacement of the occipital horn of the left lateral ventricle and 5 mm left to right midline shift. The ventricles are otherwise of normal size, shape, and morphology. The basilar cisterns are patent. The chavis-white matter differentiation is normal. The visualized portions of the orbits, paranasal sinuses, and mastoids appear normal. No acute fracture is identified. Chronic bilateral nasal bone deformities. Procedure Note Philly Tejada MD - 08/25/2021 EXAMINATION: Computed tomography (CT) of the head without contrast HISTORY: Code Stroke TECHNIQUE: CT of the head was performed without contrast according to standard protocol. COMPARISON: CT head without contrast dated 10/06/2018 FINDINGS: Intraparenchymal hemorrhage in the left posterior parietotemporal lobes measuring approximately 3.4 x 3.6 x 3.7 cm with mild surroundingvasogenic edema. No intraventricular extension. Mild mass effect on thesurrounding brain parenchyma and occipital horn of the left lateral ventricle. There is mass effect causing displacement of the occipital horn of the left lateral ventricle and 5 mm left to right midline shift. The ventriclesare otherwise of normal size, shape, and morphology. The basilar cisternsare patent. The chavis-white matter differentiation is normal. The visualized portions of the orbits, paranasal sinuses, and mastoids appear normal.No acute fracture is identified. Chronic bilateral nasal bone deformities. IMPRESSION: 1. Acute intraparenchymal hematoma in the left posterior parietotemporal lobes measuring approximately 3.4 x 3.6 x 3.7 cm with mild surrounding vasogenic edema. Mass effect causes 5 mm left to right midline shift. Findings were discussed with Dr. Vela by Dr. Graves at 7:33 PMon 08/24/2021 via telephone with readback comprehension and verification. Dictated by Nemesio Graves DO (founder ceo & president) I, Dr. PHILLY TEJADA M.D. have personally reviewed and interpreted this examination/study. This report was electronically signed by PHILLY TEJADA M.D. on 08/25/2021 8:30 AM . Thien Augustin MD CT ORDERABLES * XR WRIST LEFT 3VW OR MORE (11/25/2018 10:14 AM CDT) Only the most recent of4 resultswithin the time period is included. Anatomical Region Laterality Modality Wrist / Hand Radiographic Lynette ging 11/25/2018 10:3 2 AM CDT Impressions 11/25/2018 10:43 AM CDT Impression: 1. Unchanged alignment of an internally fixated distal radial fracture. Dictated by Geoffrey Houser MD (Resident) I, Dr. PRANAY GUAMAN MD have personally reviewed and interpreted this examination/study. This report was electronically signed by PRANAY GUAMAN MD ??on 11/25/2018 10:43 AM . Narrative 11/25/2018 10:43 AM CDT Exam: ??XR WRIST LEFT 3VW Date: 11/25/2018 10:14 AM History: ??Left Distal Radius Fracture Comparison: Radiograph of the left wrist dated October 28, 2018. Findings: Postoperative appearance of open reduction and internal fixation of a comminuted distal radial fracture consisting of a volar plate and multiple screws is present. There is no evidence of hardware failure or loosening. The fracture alignment is unchanged. Procedure Note Pranay Guaman MD - 11/25/2018 Exam: XR WRIST LEFT 3VW Date: 11/25/2018 10:14 AM History: Left Distal Radius Fracture Comparison: Radiograph of the left wrist dated October 28, 2018. Findings: Postoperative appearance of open reduction and internal fixation of a comminuted distal radial fracture consisting of a volar plate andmultiple screws is present. There is no evidence of hardware failure orloosening. The fracture alignment is unchanged. Impression: 1. Unchanged alignment of an internally fixated distal radial fracture. Dictated by Geoffrey Houser MD (Resident) I, Dr. PRANAY GUAMAN MD have personally reviewed and interpreted this examination/study. This report was electronically signed by PRANAY GUAMAN MD on11/25/2018 10:43 AM . Maciel Greer MD DIAGNOSTIC IMAGING ORDERABLES * CARDIAC PROCEDURE ORDER (10/18/2018 5:52 PM CDT) Narrative 10/18/2018 5:52 PM CDT Ordered by an unspecified provider. Scanned Document CARDIAC SERVICES ORD ERABLES * URINE MICROSCOPIC ONLY REFLEX TO CULTURE (10/18/2018 11:37 AM CDT) Reflex Status Culture not indicated 10/18/2018 12:28 PM CDT [facility] RBC UA 0-2 None Seen, 0-2, 3-5 # /hpf 10/18/2018 12:28 PM CDT [facility] WBC UA 0-5 None Seen, 0-5 # /hpf 10/18/2018 12:28 PM CDT [facility] Bacteria UA None Seen None Seen 10/18/2018 12:28 PM CDT [facility] Squamous Epithelial Cells None Seen None Seen, 0-2, 3-5 /hpf 10/18/2018 12:28 PM CDT [facility] Urine URINE SPECIMEN OBTAINED BY CLEAN CATCH PROCEDURE / Unknown Collection / Unknown 10/18/2018 11:37 AM CDT 10/18/2018 12:01 PM CDT Narrative [facility] - 10/18/2018 12:28 PM CDT Cordelia Ramey 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 Platelet Estimate Adequate Adequate 019 4:55 AM CDT [facility] Anisocytosis 1+(A) None 10/17/2018 4:55 AM CDT [facility] Poikilocytes Few(A) None 10/17/2018 4:55 AM CDT [facility] Macrocytosis Few(A) None 10/17/2018 4:55 AM CDT [facility] Hypochromia 1+(A) None 10/17/2018 4:55 AM CDT [facility] Polychromasia Rare(A) None 10/17/2018 4:55 AM CDT [facility] Target Cells Rare(A) None 10/17/2018 4:55 AM CDT [facility] Blood BLOOD SPECIMEN / Unknown Lab Venipuncture / Unknown 10/17/2018 4:00 AM CDT 10/17/2018 4:03 AM CDT Juancho Rhodes MD LAB - HEMATOLOGY ORD ERABLES [address] [phone] * XR WRIST LEFT 2VW (10/15/2018 3:16 PM CDT) Only the most recent of4 resultswithin the time period is included. Anatomical Region Laterality Modality Wrist / Hand Radiographic Lynette ging 10/15/2018 3:18 PM CDT Impressions 10/15/2018 3:31 PM CDT IMPRESSION: Splinted internally fixated distal radial intra-articular fracture, unchanged in alignment. Soft tissue swelling is present Report drafted by Carlos Manuel Avendaño M.D. (resident) I, Dr. AN RICO M.D. have personally reviewed and interpreted this examination/study. This report was electronically signed by AN RICO M.D. ??on 10/15/2018 3:31 PM . Narrative 10/15/2018 3:31 PM CDT EXAMINATION: XR WRIST LEFT 2VW HISTORY: repeat films COMPARISON: Left wrist radiograph on 10/15/2018 FINDINGS: A splint obscures the osseous details. A distal radial ventral internal fixator is redemonstrated and intact on the given views. The distal radial intra-articular fracture is unchanged in alignment. Procedure Note Abmargieankar, An S, MD - 10/15/2018 EXAMINATION: XR WRIST LEFT 2VW HISTORY: repeat films COMPARISON: Left wrist radiograph on 10/15/2018 FINDINGS: A splint obscures the osseous details. A distal radial ventral internal fixator is redemonstrated and intact on the given views. The distalradial intra-articular fracture is unchanged in alignment. IMPRESSION: Splinted internally fixated distal radial intra-articular fracture, unchanged in alignment. Soft tissue swelling is present Report drafted by Carlos Manuel Avendaño M.D. (resident) I, Dr. AN RICO M.D. have personally reviewed and interpreted this examination/study. This report was electronically signed by AN RICO M.D. on 10/15/2018 3:31 PM . Lupillo Baxter MD DIAGNOSTIC I MAGING ORDERABLES * FL CALI SURGERY (10/15/2018 1:02 PM CDT) Narrative [facility] - 10/15/2018 1:02 PM CDT Fluoroscopy was used for this exam in the OR. Please see the Operative report. Maciel Greer MD FLUOROSCOPY ORDERA BLES Performing Organization Address City/State/[facility] Co de Phone Number [facility] * PREPARE (CROSSMATCH) RBC UNIT(S), 1 Units (10/14/2018 4:21 AM CDT) Unit Description LR Red Cells [facility] Unit ABO O [facility] Unit Rh POS [facility] Product Code RL5 [facility] B[facility] OD BANK LAB Unit Donor # [id number] [facility] Unit Status released [facility] BLOO D BANK LAB Product Number [id number] [facility] B LOOD BANK LAB Blood Type Barcode 5100 [facility] Blood Bank BLOOD SPECIMEN / Unknown 10/14/2018 4:21 AM CDT 10/14/2018 4:21 AM CDT Yusuf Velasco MD LAB - BLOOD BANK ORD ERABLES [facility] [address] * (ABNORMAL) BLOOD GASES ARTERIAL (10/12/2018 1:27 PM CDT) Only the most recent of4 resultswithin the time period is included. pH Arterial 7.52(H) 7.35 - 7.45 10/12/2018 1:41 PM [facility] pCO2 Arterial 32(L) 35 - 45 mmHg 10/12/2018 1:41 PM [facility] pO2 Arterial 75(L) 77 - 101 mmHg 10/12/2018 1:41 PM [facility] HCO3 Arterial 25.6 22.0 - 26.0 mmol/L 10/12/2018 1:41 PM [facility] TCO2 Arterial 26.6 25.0 - 29.0 mmol/L 10/12/2018 1:41 PM [facility] Base Excess Arterial 3.1(H) -2.0 - 2.0 mmol/L 10/12/2018 1:41 PM [facility] Hemoglobin Arterial 10.9(L) 13.5 - 17.5 g/dL 10/12/2018 1:41 PM [facility] Oxyhemoglobin Arterial 94.2(L) 95.0 - 100.0 % 10/12/2018 1:41 PM [facility] Carboxyhemoglobin 0.3 0.0 - 3.0 % 10/12/2018 1:41 PM [facility] Methemoglobin 0.2 0.0 - 2.0 % 10/12/2018 1:41 PM [facility] FI O2 Arterial 21.0 % 10/12/2018 1:41 PM [facility] Blood, arterial ARTERIAL BLOOD SPECIMEN / Unknown Arterial Puncture / Unknown 10/12/2018 1:27 PM CDT 10/12/2018 1:34 PM T Juancho Rhodes MD LAB - BLOOD GASES OR DERABLES [facility] [address] [phone] * HIV-1 HIV-2 ANTIGEN/ANTIBODY (10/12/2018 12:06 AM CDT) Pathologist [facility] HIV Antigen/Antibod y 1 & 2 Non-reacti ve Non-react maureen 10/12/2018 1:05 AM CDT [facility] Comment: Neither HIV-1 p24 Antigen nor HIV-1/HIV-2 Antibodies are detected. ? Blood BLOOD SPECIMEN / Unknown Lab Venipuncture / Unknown 10/12/2018 12:06 AM CDT 10/12/2018 12:17 AM CDT Juancho Rhodes MD LAB - HEMATOLOGY ORD ERABLES Performing Organization Address [facility]/ZIP Co de Phone Number [address] [phone] * SYPHILIS ANTIBODY CASCADING REFLEX (10/12/2018 12:06 AM CDT) [facility] Treponema pallidum Antibody Non-react maureen Non-react maureen 10/12/2018 1:05 AM CDT [facility] Comment: No Laboratory evidence of syphilis infection. ?? Note: ??Circulating antibodies may be low or undetectable in early infection. ??If recent exposure is suspected, re-draw sample in 2-4 weeks and repeat testing. Blood BLOOD SPECIMEN / Unknown Lab Venipuncture / Unknown 10/12/2018 12:06 AM CDT 10/12/2018 12:17 AM CDT Juancho Rhodes MD LAB - SEROLOGY ORDER WILLIAN Performing Organization Address [facility]/[place] [address], [facility] [phone] * VITAMIN B1 (10/12/2018 12:06 AM CDT) [facility] Vitamin B1 Whole Blood 175.9 66.5 - 200.0 nmol/L 10/17/2018 6:15 AM CDT [facility] ([facility]) Comment: This test was developed and its performance characteristics determined by [facility]. It has not been cleared or approved by the Food and Drug Administration. Blood BLOOD SPECIMEN / Unknown Lab Venipuncture / Unknown 10/12/2018 12:06 AM CDT 10/12/2018 12:17 AM CDT Narrative [facility] ([facility]) - 10/17/2018 6:15 AM CDT Performed at: ??01 - [facility] ??[id number] [employer]ition Erector: Alex Wilcox MD, Phone: ??[phone] Juancho Rhodes MD LAB - CHEMISTRY MIGUEL GOLD Performing Organization Address City/[facility]/ZIP Co de Phone Number [facility]) [address] [id number] * HOMOCYSTEINE BLOOD QUANTITATIVE (10/12/2018 12:06 AM CDT) Pathologist [facility] Homocysteine 5.2 4.4 - 16.2 umol/L 10/12/2018 1:24 AM CDT [facility] Blood BLOOD SPECIMEN / Unknown Lab Venipuncture / Unknown 10/12/2018 12:06 AM CDT 10/12/2018 12:17 AM CDT Juancho Rhodes MD LAB - CHEMISTRY MIGUEL GOLD Performing Organization Address City/[facility]/ZIP Co de Phone Number [address] [phone] * (ABNORMAL) HEPATIC FUNCTION PANEL (10/12/2018 12:06 AM CDT) Only the most recent of2 resultswithin the time period is included. Protein Total 5.0(L) 6.0 - 8.3 g/dL 019 12:51 AM CDT [facility] Albumin 1.6(L) 3.4 - 5.0 g/dL 10/12/2018 12:51 AM CDT [facility] Bilirubin Total 2.8(H) 0.2 - 1.2 mg/dL 09/17 12:51 AM CDT [facility] Bilirubin Conjugated 2.0(H) 0.0 - 0.5 mg/dL 10/12/2018 12:51 AM [facility] Bilirubin Unconjugated 0.8 Unconjugated Bilirubin is a calculated value: Reference ranges have not been established. mg/dL 10/12/2018 12:51 AM [facility] Alkaline Phosphatase 103 40 - 150 Units/L 10/12/2018 12:51 AM [facility] ALT 26 0 - 55 Units/L 10/12/2018 12:51 AM [facility] AST 105(H) 5 - 34 Units/L 10/12/2018 12:51 AM [facility] Albumin/Globulin Ratio 0.5(L) 1.1 - 2.3 10/12/2018 12:51 AM T [facility] Blood BLOOD SPECIMEN / Unknown Lab Venipuncture / Unknown 10/12/2018 12:06 AM CDT 10/12/2018 12:17 AM CDT Juancho Rhodes MD LAB - CHEMISTRY MIGUEL GOLD [address] [phone] * (ABNORMAL) FOLATE (10/12/2018 12:06 AM CDT) Pathologist [facility] Folate 6.5(L) 7.0 - 31.4 ng/mL 10/12/2018 1:59 AM T [facility] Blood BLOOD SPECIMEN / Unknown Lab Venipuncture / Unknown 10/12/2018 12:06 AM CDT 10/12/2018 12:17 AM CDT Juancho Rhodes MD LAB - CHEMISTRY MIGUEL GOLD [address] [phone] * XR CHEST 1VW (10/11/2018 5:12 AM CDT) Anatomical Region Laterality Modality Chest Radiographic Lynette ging 10/11/2018 9:50 AM CDT Impressions 10/11/2018 11:48 AM CDT FINDINGS/IMPRESSION: An endotracheal tube terminates in the midthoracic trachea. An enteric tube extends below the diaphragm out of the field of view. The lungs are hypoinflated. There is mild right atelectasis/airspace disease which has slightly increased since the prior study. Moderate opacity in the left lower chest is consistent with atelectasis and/or airspace disease, unchanged. Small pleural effusions may layer posteriorly. No pneumothorax is visible. The cardiomediastinal silhouette is stable. Report drafted by Carlos Manuel Avendaño M.D. (resident) IDr. LEILANI M.D. have personally reviewed and interpreted this examination/study. This report was electronically signed by LEILANI GALEAS M.D. ??on 10/11/2018 11:48 AM . Narrative 10/11/2018 11:48 AM CDT EXAMINATION: XR CHEST 1VW HISTORY: intubation COMPARISON: chest radiograph on 10/10/2018 Procedure Note Leilani Galeas MD - 10/11/2018 EXAMINATION: XR CHEST 1VW HISTORY: intubation COMPARISON: chest radiograph on 10/10/2018 FINDINGS/IMPRESSION: An endotracheal tube terminates in the midthoracic trachea. An enteric tube extends below the diaphragm out of the field of view. The lungs are hypoinflated. There is mild right atelectasis/airspace disease which has slightly increased since the prior study. Moderate opacity in the left lower chest is consistent with atelectasis and/or airspace disease, unchanged. Small pleural effusions may layer posteriorly. No pneumothorax is visible. The cardiomediastinalsilhouette is stable. Report drafted by Carlos Manuel Avendaño M.D. (resident) Dr. LEILANI Londono M.D. have personally reviewed and interpreted this examination/study. This report was electronically signed by ELILANI GALEAS M.D. on 10/11/2018 11:48 AM . Mora Bailey MD DIAGNOSTIC IMAGING O RDERABLES * (ABNORMAL) DIFFERENTIAL MANUAL (10/10/2018 12:03 AM CDT) Only the most recent of2 resultswithin the time period is included. WBC (corrected for NRBC) 5.3 10? 3 /uL 10/10/2018 1:37 AM [facility] Total Cell Count 100 10/11/19 19 1:37 AM [facility] Neutrophils Absolute Manual 3.92 1.60 - 7.00 10? 3 /uL 10/10/2018 1:37 AM [facility] Comment:(BANDS+SEGS) x WBC = NEUT # (ANC) Lymphocyte Absolute Manual 0.58(L) 0.80 - 2.90 10? 3 /uL 10/10/2018 1:37 AM [facility] Monocytes Absolute Manual 0.64 0.14 - 0.66 10? 3 /uL 10/10/2018 1:37 AM [facility] Eosinophils Absolute Manual 0.11 0.00 - 0.22 10? 3 /uL 10/10/2018 1:37 AM [facility] Neutrophil % Manual 74(H) 30 - 60 % 10/10/2018 1:37 AM [facility] Lymphocyte % Manual 11(L) 20 - 45 % 10/10/2018 1:37 AM [facility] Monocytes % Manual 12(H) 2 - 10 % 10/10/2018 1:37 AM [facility] Eosinophils % Manual 2 1 - 6 % 10/10/2018 1:37 AM [facility] Atypical Lymphocyte % Manual 1(H) 0 % 10/10/2018 1:37 AM [facility] Platelet Estimate Slightly Decreased(A ) Adequate 10/10/2018 1:37 AM [facility] Anisocytosis 1+(A) None 10/10/2018 1:37 AM [facility] Hypochromia 1+(A) None 10/10/2018 1:37 AM [facility] Polychromasia Few(A) None 10/10/2018 1:37 AM [facility] Target Cells 1+(A) None 10/10/2018 1:37 AM [facility] Ovalocytes 1+(A) None 10/10/2018 1:37 AM [facility] Blood BLOOD SPECIMEN / Unknown Venipuncture / Unknown 10/10/2018 12:03 AM CDT 10/10/2018 12:32 AM CDT Juancho Rhodes MD LAB - [place]EMATOLOGY [place] [address], [facility] [phone] * XR HAND LEFT 3VW OR MORE (10/02/2018 5:12 PM CDT) Anatomical Region Laterality Modality Wrist / Hand Radiographic Lynette ging 10/02/2018 5:18 PM CDT Impressions 10/04/2018 3:04 PM CDT IMPRESSION: 1.Mildly displaced intra-articular distal radius fracture. 2.No acute fracture in the hand. Report dictated by Efren Bauman M.D. (radiology tech). I, Dr. SHAAN ALEJANDRE have personally reviewed and interpreted this examination/study. This report was electronically signed by SHAAN ALEJANDRE ??on 10/04/2018 3:04 PM . Narrative 10/04/2018 3:04 PM CDT EXAMINATION: XR FOREARM LEFT 2VW, XR WRIST LEFT 3VW OR MORE, XR HAND LEFT 3VW OR MORE HISTORY: trauma COMPARISON: No prior study is available for comparison. FINDINGS: Left forearm: Mildly displaced intra-articular distal radial fracture is seen. Bone density and texture are normal. Soft tissue swelling is present around the uterus. Left wrist: Mildly displaced intra-articular distal radius fracture is again seen. Bone density and texture are normal. Soft tissue swelling is present. Left hand: Pulse oximeter partially obscures the image. The osseous structures are intact and well aligned without acute fracture or dislocation. The joint spaces are preserved. Bone density and texture are normal. No soft tissue swelling is present. Procedure Note Shaan Alejandre MD - 10/04/2018 EXAMINATION: XR FOREARM LEFT 2VW, XR WRIST LEFT 3VW OR MORE, XR HANDLEFT 3VW OR MORE HISTORY: trauma COMPARISON: No prior study is available for comparison. FINDINGS: Left forearm: Mildly displaced intra-articular distal radial fracture is seen. Bone density and texture are normal. Soft tissue swelling is present aroundthe uterus. Left wrist: Mildly displaced intra-articular distal radius fracture is again seen. Bone density and texture are normal. Soft tissue swelling is present. Left hand: Pulse oximeter partially obscures the image. The osseous structures are intact and well aligned without acute fracture or dislocation. The joint spaces are preserved. Bone density and texture are normal. No softtissue swelling is present. IMPRESSION: 1.Mildly displaced intra-articular distal radius fracture. 2.No acute fracture in the hand. Report dictated by Efren Bauman M.D. (radiology tech). Dr. SHAAN Londono have personally reviewed and interpreted this examination/study. This report was electronically signed by SHAAN ALEJANDRE on 10/04/2018 3:04 PM . Alfred Thakkar DO DIAGNOSTIC IMAGING O RDERABLES * XR FOREARM LEFT 2VW (10/02/2018 5:11 PM CDT) Anatomical Region Laterality Modality Upper Extremity Radiographic Lynette ging 10/02/2018 5:18 PM CDT Impressions 10/04/2018 3:04 PM CDT IMPRESSION: 1.Mildly displaced intra-articular distal radius fracture. 2.No acute fracture in the hand. Report dictated by Efren Bauman M.D. (radiology tech). Dr. SHAAN Londono have personally reviewed and interpreted this examination/study. This report was electronically signed by SHAAN ALEJANDRE ??on 10/04/2018 3:04 PM . Narrative 10/04/2018 3:04 PM CDT EXAMINATION: XR FOREARM LEFT 2VW, XR WRIST LEFT 3VW OR MORE, XR HAND LEFT 3VW OR MORE HISTORY: trauma COMPARISON: No prior study is available for comparison. FINDINGS: Left forearm: Mildly displaced intra-articular distal radial fracture is seen. Bone density and texture are normal. Soft tissue swelling is present around the uterus. Left wrist: Mildly displaced intra-articular distal radius fracture is again seen. Bone density and texture are normal. Soft tissue swelling is present. Left hand: Pulse oximeter partially obscures the image. The osseous structures are intact and well aligned without acute fracture or dislocation. The joint spaces are preserved. Bone density and texture are normal. No soft tissue swelling is present. Procedure Note Shaan Alejandre MD - 10/04/2018 EXAMINATION: XR FOREARM LEFT 2VW, XR WRIST LEFT 3VW OR MORE, XR HANDLEFT 3VW OR MORE HISTORY: trauma COMPARISON: No prior study is available for comparison. FINDINGS: Left forearm: Mildly displaced intra-articular distal radial fracture is seen. Bone density and texture are normal. Soft tissue swelling is present aroundthe uterus. Left wrist: Mildly displaced intra-articular distal radius fracture is again seen. Bone density and texture are normal. Soft tissue swelling is present. Left hand: Pulse oximeter partially obscures the image. The osseous structures are intact and well aligned without acute fracture or dislocation. The joint spaces are preserved. Bone density and texture are normal. No softtissue swelling is present. IMPRESSION: 1.Mildly displaced intra-articular distal radius fracture. 2.No acute fracture in the hand. Report dictated by Efren Bauman M.D. (radiology tech). Dr. SHAAN Londono have personally reviewed and interpreted this examination/study. This report was electronically signed by SHAAN ALEJANDRE on 10/04/2018 3:04 PM . Alfred Thakkar DO DIAGNOSTIC IMAGING O RDERABLES * XR FEMUR LEFT 2VW (10/02/2018 5:11 PM CDT) Anatomical Region Laterality Modality Lower Extremity Radiographic Lynette ging 10/02/2018 5:21 PM CDT Impressions 10/04/2018 4:35 PM CDT IMPRESSION: No acute femoral fracture identified. Report dictated by Efren Bauman M.D. (radiology tech). Dr. LEILANI Londono M.D. have personally reviewed and interpreted this examination/study. This report was electronically signed by LEILANI GALEAS M.D. ??on 10/04/2018 4:35 PM . Narrative 10/04/2018 4:35 PM CDT EXAMINATION: XR FEMUR LEFT 2VW HISTORY: Pain after trauma COMPARISON: No prior study is available for comparison. FINDINGS: The femur is intact without acute fracture. The joint spaces are preserved. Bone density and texture are normal. No soft tissue abnormality is evident. Procedure Note Leilani Galeas MD - 10/04/2018 EXAMINATION: XR FEMUR LEFT 2VW HISTORY: Pain after trauma COMPARISON: No prior study is available for comparison. FINDINGS: The femur is intact without acute fracture. The joint spaces are preserved. Bone density and texture are normal. No soft tissueabnormality is evident. IMPRESSION: No acute femoral fracture identified. Report dictated by Efren Bauman M.D. (radiology tech). Dr. LEILANI Londono M.D. have personally reviewed and interpreted this examination/study. This report was electronically signed by LEILANI GALEAS M.D. on 10/04/2018 4:35 PM . Alfred Thakkar DO DIAGNOSTIC IMAGING O RDERABLES * CT LUMBAR SPINE WO CONTRAST (10/02/2018 5:02 PM CDT) Anatomical Region Laterality Modality Spine Computed Tomogra phy 10/03/2018 6:58 AM CDT Impressions 10/03/2018 10:27 AM CDT IMPRESSION: 1.No acute intracranial hemorrhage, mass effect, or midline shift. 2.Bilateral nasal bone fractures involving the nasal bridge and right frontal process. Extensive right facial and periorbital swelling/hematoma. 3.No evidence of acute fracture in the cervical, thoracic, or lumbar spine. This report was approved ??by Javier Tian ?? on 10/03/2018 10:[address] ALY Londono have personally reviewed and interpreted this examination/study. This report was electronically signed by ALY MILLS ??on 10/03/2018 10:27 AM . Narrative 10/03/2018 10:27 AM CDT EXAMINATION: 1. Computed tomography (CT) of the head without contrast 2. CT of the maxillofacial bones, orbits, and paranasal sinuses without contrast 3. CT of the cervical spine without contrast 4. CT of the thoracic spine without contrast 5. CT of the lumbar spine without contrast HISTORY: TRAUMA TECHNIQUE: CT of the head, cervical spine, and maxillofacial bones, orbits, and paranasal sinuses was performed without contrast according to standard protocol. Reformatted axial, sagittal, and coronal images of the thoracic and lumbar spine were obtained by the technologist from a concurrently performed body CT and sent to the workstation for review. FINDINGS: No prior study is available for comparison at the time of this dictation. Head: No acute intra- or extra-axial hemorrhage is identified. There is mild cerebral volume loss with associated ex vacuo ventricular dilatation. The basilar cisterns are patent. No mass effect or midline shift is seen. A few scattered protrusion foci in the periventricular white matter are nonspecific but likely represent small vessel ischemic disease. The chavis-white matter differentiation is normal. No acute calvarial fracture is identified. Maxillofacial: The orbits appear normal. Mucus retention cyst in right frontal sinus, otherwise the paranasal sinuses are clear. The hard palate, mandible, and temporomandibular joints appear normal. Mildly displaced bilateral nasal bone fractures are present involving the nasal bridge and right frontal process. The mastoid air cells are clear. There is extensive right periorbital and facial soft tissue swelling and hemorrhagic contusion. Cervical spine: Trace retrolisthesis of C3 over C4.. Vertebral bodies are normal in height without evidence of acute fracture. The craniocervical junction is normal. There is mild to moderate degenerative disc disease predominantly in the mid and lower cervical spine. No significant central canal stenosis seen. There are varying degrees of mild facet osteoarthritis. Moderate uncovertebral joint arthritis is seen at C5-C6, C6-C7. Moderate to severe bilateral C5-C6 and C6-C7 neural foraminal stenosis is noted. There is atherosclerotic calcification of the carotid bifurcations. Thoracic spine: There is reverse S-shaped scoliosis of the thoracolumbar spine. Mild exaggeration of the thoracic kyphosis. Vertebral bodies are normal in height without evidence of acute fracture. There is fusion of T4-T5 posterior elements. There is mild degenerative disc disease. Schmorl's nodes are present at multiple levels. No central canal stenosis is seen. Level degenerative facet disease. Mild neural foraminal stenosis at multiple levels. No soft tissue abnormality is identified. Lumbar spine: There is levocurvature of the lumbar spine. Vertebral bodies are normal in height without evidence of acute fracture. Multilevel degenerative disc disease seen with endplate osteophytes,, worst at L4-L5 and L5-S1 with vacuum disc phenomena and endplate sclerosis. Calcification of the posterior longitudinal ligament or calcified disc material is seen at these levels. Moderate to severe L4-L5 and L5-S1 central canal stenosis. Mild facet hypertrophy is seen at these levels. Multilevel neural foraminal stenosis, mainly at L5-S1 No soft tissue abnormality is identified. Procedure Note Aly Mills MD - 10/03/2018 EXAMINATION: 1. Computed tomography (CT) of the head without contrast 2. CT of the maxillofacial bones, orbits, and paranasal sinuses without contrast 3. CT of the cervical spine without contrast 4. CT of the thoracic spine without contrast 5. CT of the lumbar spine without contrast HISTORY: TRAUMA TECHNIQUE: CT of the head, cervical spine, and maxillofacial bones, orbits, and paranasal sinuses was performed without contrast accordingto standard protocol. Reformatted axial, sagittal, and coronal images ofthe thoracic and lumbar spine were obtained by the technologist from a concurrently performed body CT and sent to the workstation for review. FINDINGS: No prior study is available for comparison at the time of this dictation. Head: No acute intra- or extra-axial hemorrhage is identified. There is mild cerebral volume loss with associated ex vacuo ventricular dilatation.The basilar cisterns are patent. No mass effect or midline shift is seen. A few scattered protrusion foci in the periventricular white matter are nonspecific but likely represent small vessel ischemic disease. The chavis-white matter differentiation is normal. No acute calvarial fracture is identified. Maxillofacial: The orbits appear normal. Mucus retention cyst in right frontal sinus, otherwise the paranasal sinuses are clear. The hard palate, mandible,and temporomandibular joints appear normal. Mildly displaced bilateral nasal bone fractures are present involving the nasal bridge and right frontal process. The mastoid air cells are clear. There is extensive right periorbital and facial soft tissue swelling and hemorrhagic contusion. Cervical spine: Trace retrolisthesis of C3 over C4.. Vertebral bodies are normal inheight without evidence of acute fracture. The craniocervical junction isnormal. There is mild to moderate degenerative disc disease predominantly in the mid and lower cervical spine. No significant central canal stenosisseen. There are varying degrees of mild facet osteoarthritis. Moderate uncovertebral joint arthritis is seen at C5-C6, C6-C7. Moderate tosevere bilateral C5-C6 and C6-C7 neural foraminal stenosis is noted. There is atherosclerotic calcification of the carotid bifurcations. Thoracic spine: There is reverse S-shaped scoliosis of the thoracolumbar spine. Mild exaggeration of the thoracic kyphosis. Vertebral bodies are normal in height without evidence of acute fracture. There is fusion of T4-T5 posterior elements. There is mild degenerative disc disease. Schmorl's nodes are present at multiple levels. No central canal stenosis is seen. Level degenerative facet disease. Mild neural foraminal stenosis at multiple levels. No soft tissue abnormality is identified. Lumbar spine: There is levocurvature of the lumbar spine. Vertebral bodies are normalin height without evidence of acute fracture. Multilevel degenerative disc disease seen with endplate osteophytes,, worst at L4-L5 and L5-S1 with vacuum disc phenomena and endplate sclerosis. Calcification of the posterior longitudinal ligament or calcified disc material is seen at these levels. Moderate to severe L4-L5 and L5-S1 central canal stenosis. Mild facet hypertrophy is seen at these levels. Multilevel neural foraminal stenosis, mainly at L5-S1 No soft tissue abnormality is identified. IMPRESSION: 1.No acute intracranial hemorrhage, mass effect, or midline shift. 2.Bilateral nasal bone fractures involving the nasal bridge and right frontal process. Extensive right facial and periorbitalswelling/hematoma. 3.No evidence of acute fracture in the cervical, thoracic, or lumbarspine. This report was approved by Javier Tian on 10/03/2018 10:[address] ALY Londono have personally reviewed and interpreted this examination/study. This report was electronically signed by ALY MILLS on10/03/2018 10:27 AM . Alfred Thakkar DO CT ORDERABLES * CT THORACIC SPINE WO CONTRAST (10/02/2018 5:02 PM CDT) Anatomical Region Laterality Modality Spine Computed Tomogra phy 10/03/2018 6:58 AM CDT Impressions 10/03/2018 10:27 AM CDT IMPRESSION: 1.No acute intracranial hemorrhage, mass effect, or midline shift. 2.Bilateral nasal bone fractures involving the nasal bridge and right frontal process. Extensive right facial and periorbital swelling/hematoma. 3.No evidence of acute fracture in the cervical, thoracic, or lumbar spine. This report was approved ??by Javier Jaylan ?? on 10/03/2018 10:[address] ALY Londono have personally reviewed and interpreted this examination/study. This report was electronically signed by ALY MILLS ??on 10/03/2018 10:27 AM . Narrative 10/03/2018 10:27 AM CDT EXAMINATION: 1. Computed tomography (CT) of the head without contrast 2. CT of the maxillofacial bones, orbits, and paranasal sinuses without contrast 3. CT of the cervical spine without contrast 4. CT of the thoracic spine without contrast 5. CT of the lumbar spine without contrast HISTORY: TRAUMA TECHNIQUE: CT of the head, cervical spine, and maxillofacial bones, orbits, and paranasal sinuses was performed without contrast according to standard protocol. Reformatted axial, sagittal, and coronal images of the thoracic and lumbar spine were obtained by the technologist from a concurrently performed body CT and sent to the workstation for review. FINDINGS: No prior study is available for comparison at the time of this dictation. Head: No acute intra- or extra-axial hemorrhage is identified. There is mild cerebral volume loss with associated ex vacuo ventricular dilatation. The basilar cisterns are patent. No mass effect or midline shift is seen. A few scattered protrusion foci in the periventricular white matter are nonspecific but likely represent small vessel ischemic disease. The chavis-white matter differentiation is normal. No acute calvarial fracture is identified. Maxillofacial: The orbits appear normal. Mucus retention cyst in right frontal sinus, otherwise the paranasal sinuses are clear. The hard palate, mandible, and temporomandibular joints appear normal. Mildly displaced bilateral nasal bone fractures are present involving the nasal bridge and right frontal process. The mastoid air cells are clear. There is extensive right periorbital and facial soft tissue swelling and hemorrhagic contusion. Cervical spine: Trace retrolisthesis of C3 over C4.. Vertebral bodies are normal in height without evidence of acute fracture. The craniocervical junction is normal. There is mild to moderate degenerative disc disease predominantly in the mid and lower cervical spine. No significant central canal stenosis seen. There are varying degrees of mild facet osteoarthritis. Moderate uncovertebral joint arthritis is seen at C5-C6, C6-C7. Moderate to severe bilateral C5-C6 and C6-C7 neural foraminal stenosis is noted. There is atherosclerotic calcification of the carotid bifurcations. Thoracic spine: There is reverse S-shaped scoliosis of the thoracolumbar spine. Mild exaggeration of the thoracic kyphosis. Vertebral bodies are normal in height without evidence of acute fracture. There is fusion of T4-T5 posterior elements. There is mild degenerative disc disease. Schmorl's nodes are present at multiple levels. No central canal stenosis is seen. Level degenerative facet disease. Mild neural foraminal stenosis at multiple levels. No soft tissue abnormality is identified. Lumbar spine: There is levocurvature of the lumbar spine. Vertebral bodies are normal in height without evidence of acute fracture. Multilevel degenerative disc disease seen with endplate osteophytes,, worst at L4-L5 and L5-S1 with vacuum disc phenomena and endplate sclerosis. Calcification of the posterior longitudinal ligament or calcified disc material is seen at these levels. Moderate to severe L4-L5 and L5-S1 central canal stenosis. Mild facet hypertrophy is seen at these levels. Multilevel neural foraminal stenosis, mainly at L5-S1 No soft tissue abnormality is identified. Procedure Note Aly Mills MD - 10/03/2018 EXAMINATION: 1. Computed tomography (CT) of the head without contrast 2. CT of the maxillofacial bones, orbits, and paranasal sinuses without contrast 3. CT of the cervical spine without contrast 4. CT of the thoracic spine without contrast 5. CT of the lumbar spine without contrast HISTORY: TRAUMA TECHNIQUE: CT of the head, cervical spine, and maxillofacial bones, orbits, and paranasal sinuses was performed without contrast accordingto standard protocol. Reformatted axial, sagittal, and coronal images ofthe thoracic and lumbar spine were obtained by the technologist from a concurrently performed body CT and sent to the workstation for review. FINDINGS: No prior study is available for comparison at the time of this dictation. Head: No acute intra- or extra-axial hemorrhage is identified. There is mild cerebral volume loss with associated ex vacuo ventricular dilatation.The basilar cisterns are patent. No mass effect or midline shift is seen. A few scattered protrusion foci in the periventricular white matter are nonspecific but likely represent small vessel ischemic disease. The chavis-white matter differentiation is normal. No acute calvarial fracture is identified. Maxillofacial: The orbits appear normal. Mucus retention cyst in right frontal sinus, otherwise the paranasal sinuses are clear. The hard palate, mandible,and temporomandibular joints appear normal. Mildly displaced bilateral nasal bone fractures are present involving the nasal bridge and right frontal process. The mastoid air cells are clear. There is extensive right periorbital and facial soft tissue swelling and hemorrhagic contusion. Cervical spine: Trace retrolisthesis of C3 over C4.. Vertebral bodies are normal inheight without evidence of acute fracture. The craniocervical junction isnormal. There is mild to moderate degenerative disc disease predominantly in the mid and lower cervical spine. No significant central canal stenosisseen. There are varying degrees of mild facet osteoarthritis. Moderate uncovertebral joint arthritis is seen at C5-C6, C6-C7. Moderate tosevere bilateral C5-C6 and C6-C7 neural foraminal stenosis is noted. There is atherosclerotic calcification of the carotid bifurcations. Thoracic spine: There is reverse S-shaped scoliosis of the thoracolumbar spine. Mild exaggeration of the thoracic kyphosis. Vertebral bodies are normal in height without evidence of acute fracture. There is fusion of T4-T5 posterior elements. There is mild degenerative disc disease. Schmorl's nodes are present at multiple levels. No central canal stenosis is seen. Level degenerative facet disease. Mild neural foraminal stenosis at multiple levels. No soft tissue abnormality is identified. Lumbar spine: There is levocurvature of the lumbar spine. Vertebral bodies are normalin height without evidence of acute fracture. Multilevel degenerative disc disease seen with endplate osteophytes,, worst at L4-L5 and L5-S1 with vacuum disc phenomena and endplate sclerosis. Calcification of the posterior longitudinal ligament or calcified disc material is seen at these levels. Moderate to severe L4-L5 and L5-S1 central canal stenosis. Mild facet hypertrophy is seen at these levels. Multilevel neural foraminal stenosis, mainly at L5-S1 No soft tissue abnormality is identified. IMPRESSION: 1.No acute intracranial hemorrhage, mass effect, or midline shift. 2.Bilateral nasal bone fractures involving the nasal bridge and right frontal process. Extensive right facial and periorbitalswelling/hematoma. 3.No evidence of acute fracture in the cervical, thoracic, or lumbarspine. This report was approved by Javier Tian on 10/03/2018 10:26 AM . IDr. ALY have personally reviewed and interpreted this examination/study. This report was electronically signed by ALY MILLS on10/03/2018 10:27 AM . Alfred Thakkar DO CT ORDERABLES * CT CERVICAL SPINE WO CONTRAST (10/02/2018 5:02 PM CDT) Anatomical Region Laterality Modality Spine Computed Tomogra phy 10/03/2018 6:58 AM CDT Impressions 10/03/2018 10:27 AM CDT IMPRESSION: 1.No acute intracranial hemorrhage, mass effect, or midline shift. 2.Bilateral nasal bone fractures involving the nasal bridge and right frontal process. Extensive right facial and periorbital swelling/hematoma. 3.No evidence of acute fracture in the cervical, thoracic, or lumbar spine. This report was approved ??by Javier Tian ?? on 10/03/2018 10:26 AM . I, Dr. ALY MILLS have personally reviewed and interpreted this examination/study. This report was electronically signed by ALY MILLS ??on 10/03/2018 10:27 AM . Narrative 10/03/2018 10:27 AM CDT EXAMINATION: 1. Computed tomography (CT) of the head without contrast 2. CT of the maxillofacial bones, orbits, and paranasal sinuses without contrast 3. CT of the cervical spine without contrast 4. CT of the thoracic spine without contrast 5. CT of the lumbar spine without contrast HISTORY: TRAUMA TECHNIQUE: CT of the head, cervical spine, and maxillofacial bones, orbits, and paranasal sinuses was performed without contrast according to standard protocol. Reformatted axial, sagittal, and coronal images of the thoracic and lumbar spine were obtained by the technologist from a concurrently performed body CT and sent to the workstation for review. FINDINGS: No prior study is available for comparison at the time of this dictation. Head: No acute intra- or extra-axial hemorrhage is identified. There is mild cerebral volume loss with associated ex vacuo ventricular dilatation. The basilar cisterns are patent. No mass effect or midline shift is seen. A few scattered protrusion foci in the periventricular white matter are nonspecific but likely represent small vessel ischemic disease. The chavis-white matter differentiation is normal. No acute calvarial fracture is identified. Maxillofacial: The orbits appear normal. Mucus retention cyst in right frontal sinus, otherwise the paranasal sinuses are clear. The hard palate, mandible, and temporomandibular joints appear normal. Mildly displaced bilateral nasal bone fractures are present involving the nasal bridge and right frontal process. The mastoid air cells are clear. There is extensive right periorbital and facial soft tissue swelling and hemorrhagic contusion. Cervical spine: Trace retrolisthesis of C3 over C4.. Vertebral bodies are normal in height without evidence of acute fracture. The craniocervical junction is normal. There is mild to moderate degenerative disc disease predominantly in the mid and lower cervical spine. No significant central canal stenosis seen. There are varying degrees of mild facet osteoarthritis. Moderate uncovertebral joint arthritis is seen at C5-C6, C6-C7. Moderate to severe bilateral C5-C6 and C6-C7 neural foraminal stenosis is noted. There is atherosclerotic calcification of the carotid bifurcations. Thoracic spine: There is reverse S-shaped scoliosis of the thoracolumbar spine. Mild exaggeration of the thoracic kyphosis. Vertebral bodies are normal in height without evidence of acute fracture. There is fusion of T4-T5 posterior elements. There is mild degenerative disc disease. Schmorl's nodes are present at multiple levels. No central canal stenosis is seen. Level degenerative facet disease. Mild neural foraminal stenosis at multiple levels. No soft tissue abnormality is identified. Lumbar spine: There is levocurvature of the lumbar spine. Vertebral bodies are normal in height without evidence of acute fracture. Multilevel degenerative disc disease seen with endplate osteophytes,, worst at L4-L5 and L5-S1 with vacuum disc phenomena and endplate sclerosis. Calcification of the posterior longitudinal ligament or calcified disc material is seen at these levels. Moderate to severe L4-L5 and L5-S1 central canal stenosis. Mild facet hypertrophy is seen at these levels. Multilevel neural foraminal stenosis, mainly at L5-S1 No soft tissue abnormality is identified. Procedure Note Aly Mills MD - 10/03/2018 EXAMINATION: 1. Computed tomography (CT) of the head without contrast 2. CT of the maxillofacial bones, orbits, and paranasal sinuses without contrast 3. CT of the cervical spine without contrast 4. CT of the thoracic spine without contrast 5. CT of the lumbar spine without contrast HISTORY: TRAUMA TECHNIQUE: CT of the head, cervical spine, and maxillofacial bones, orbits, and paranasal sinuses was performed without contrast accordingto standard protocol. Reformatted axial, sagittal, and coronal images ofthe thoracic and lumbar spine were obtained by the technologist from a concurrently performed body CT and sent to the workstation for review. FINDINGS: No prior study is available for comparison at the time of this dictation. Head: No acute intra- or extra-axial hemorrhage is identified. There is mild cerebral volume loss with associated ex vacuo ventricular dilatation.The basilar cisterns are patent. No mass effect or midline shift is seen. A few scattered protrusion foci in the periventricular white matter are nonspecific but likely represent small vessel ischemic disease. The chavis-white matter differentiation is normal. No acute calvarial fracture is identified. Maxillofacial: The orbits appear normal. Mucus retention cyst in right frontal sinus, otherwise the paranasal sinuses are clear. The hard palate, mandible,and temporomandibular joints appear normal. Mildly displaced bilateral nasal bone fractures are present involving the nasal bridge and right frontal process. The mastoid air cells are clear. There is extensive right periorbital and facial soft tissue swelling and hemorrhagic contusion. Cervical spine: Trace retrolisthesis of C3 over C4.. Vertebral bodies are normal inheight without evidence of acute fracture. The craniocervical junction isnormal. There is mild to moderate degenerative disc disease predominantly in the mid and lower cervical spine. No significant central canal stenosisseen. There are varying degrees of mild facet osteoarthritis. Moderate uncovertebral joint arthritis is seen at C5-C6, C6-C7. Moderate tosevere bilateral C5-C6 and C6-C7 neural foraminal stenosis is noted. There is atherosclerotic calcification of the carotid bifurcations. Thoracic spine: There is reverse S-shaped scoliosis of the thoracolumbar spine. Mild exaggeration of the thoracic kyphosis. Vertebral bodies are normal in height without evidence of acute fracture. There is fusion of T4-T5 posterior elements. There is mild degenerative disc disease. Schmorl's nodes are present at multiple levels. No central canal stenosis is seen. Level degenerative facet disease. Mild neural foraminal stenosis at multiple levels. No soft tissue abnormality is identified. Lumbar spine: There is levocurvature of the lumbar spine. Vertebral bodies are normalin height without evidence of acute fracture. Multilevel degenerative disc disease seen with endplate osteophytes,, worst at L4-L5 and L5-S1 with vacuum disc phenomena and endplate sclerosis. Calcification of the posterior longitudinal ligament or calcified disc material is seen at these levels. Moderate to severe L4-L5 and L5-S1 central canal stenosis. Mild facet hypertrophy is seen at these levels. Multilevel neural foraminal stenosis, mainly at L5-S1 No soft tissue abnormality is identified. IMPRESSION: 1.No acute intracranial hemorrhage, mass effect, or midline shift. 2.Bilateral nasal bone fractures involving the nasal bridge and right frontal process. Extensive right facial and periorbitalswelling/hematoma. 3.No evidence of acute fracture in the cervical, thoracic, or lumbarspine. This report was approved by Javier Tian on 10/03/2018 10:[address] ALY Londono have personally reviewed and interpreted this examination/study. This report was electronically signed by ALY MILLS on10/03/2018 10:27 AM . Alfred Thakkar DO CT ORDERABLES * CT FACIAL BONES WO CONTRAST (10/02/2018 5:02 PM CDT) Anatomical Region Laterality Modality Head Computed Tomogra phy 10/03/2018 6:58 AM CDT Impressions 10/03/2018 10:27 AM CDT IMPRESSION: 1.No acute intracranial hemorrhage, mass effect, or midline shift. 2.Bilateral nasal bone fractures involving the nasal bridge and right frontal process. Extensive right facial and periorbital swelling/hematoma. 3.No evidence of acute fracture in the cervical, thoracic, or lumbar spine. This report was approved ??by Javier Tian ?? on 10/03/2018 10:[address] ALY Londono have personally reviewed and interpreted this examination/study. This report was electronically signed by ALY MILLS ??on 10/03/2018 10:27 AM . Narrative 10/03/2018 10:27 AM CDT EXAMINATION: 1. Computed tomography (CT) of the head without contrast 2. CT of the maxillofacial bones, orbits, and paranasal sinuses without contrast 3. CT of the cervical spine without contrast 4. CT of the thoracic spine without contrast 5. CT of the lumbar spine without contrast HISTORY: TRAUMA TECHNIQUE: CT of the head, cervical spine, and maxillofacial bones, orbits, and paranasal sinuses was performed without contrast according to standard protocol. Reformatted axial, sagittal, and coronal images of the thoracic and lumbar spine were obtained by the technologist from a concurrently performed body CT and sent to the workstation for review. FINDINGS: No prior study is available for comparison at the time of this dictation. Head: No acute intra- or extra-axial hemorrhage is identified. There is mild cerebral volume loss with associated ex vacuo ventricular dilatation. The basilar cisterns are patent. No mass effect or midline shift is seen. A few scattered protrusion foci in the periventricular white matter are nonspecific but likely represent small vessel ischemic disease. The chavis-white matter differentiation is normal. No acute calvarial fracture is identified. Maxillofacial: The orbits appear normal. Mucus retention cyst in right frontal sinus, otherwise the paranasal sinuses are clear. The hard palate, mandible, and temporomandibular joints appear normal. Mildly displaced bilateral nasal bone fractures are present involving the nasal bridge and right frontal process. The mastoid air cells are clear. There is extensive right periorbital and facial soft tissue swelling and hemorrhagic contusion. Cervical spine: Trace retrolisthesis of C3 over C4.. Vertebral bodies are normal in height without evidence of acute fracture. The craniocervical junction is normal. There is mild to moderate degenerative disc disease predominantly in the mid and lower cervical spine. No significant central canal stenosis seen. There are varying degrees of mild facet osteoarthritis. Moderate uncovertebral joint arthritis is seen at C5-C6, C6-C7. Moderate to severe bilateral C5-C6 and C6-C7 neural foraminal stenosis is noted. There is atherosclerotic calcification of the carotid bifurcations. Thoracic spine: There is reverse S-shaped scoliosis of the thoracolumbar spine. Mild exaggeration of the thoracic kyphosis. Vertebral bodies are normal in height without evidence of acute fracture. There is fusion of T4-T5 posterior elements. There is mild degenerative disc disease. Schmorl's nodes are present at multiple levels. No central canal stenosis is seen. Level degenerative facet disease. Mild neural foraminal stenosis at multiple levels. No soft tissue abnormality is identified. Lumbar spine: There is levocurvature of the lumbar spine. Vertebral bodies are normal in height without evidence of acute fracture. Multilevel degenerative disc disease seen with endplate osteophytes,, worst at L4-L5 and L5-S1 with vacuum disc phenomena and endplate sclerosis. Calcification of the posterior longitudinal ligament or calcified disc material is seen at these levels. Moderate to severe L4-L5 and L5-S1 central canal stenosis. Mild facet hypertrophy is seen at these levels. Multilevel neural foraminal stenosis, mainly at L5-S1 No soft tissue abnormality is identified. Procedure Note Aly Mills MD - 10/03/2018 EXAMINATION: 1. Computed tomography (CT) of the head without contrast 2. CT of the maxillofacial bones, orbits, and paranasal sinuses without contrast 3. CT of the cervical spine without contrast 4. CT of the thoracic spine without contrast 5. CT of the lumbar spine without contrast HISTORY: TRAUMA TECHNIQUE: CT of the head, cervical spine, and maxillofacial bones, orbits, and paranasal sinuses was performed without contrast accordingto standard protocol. Reformatted axial, sagittal, and coronal images ofthe thoracic and lumbar spine were obtained by the technologist from a concurrently performed body CT and sent to the workstation for review. FINDINGS: No prior study is available for comparison at the time of this dictation. Head: No acute intra- or extra-axial hemorrhage is identified. There is mild cerebral volume loss with associated ex vacuo ventricular dilatation.The basilar cisterns are patent. No mass effect or midline shift is seen. A few scattered protrusion foci in the periventricular white matter are nonspecific but likely represent small vessel ischemic disease. The chavis-white matter differentiation is normal. No acute calvarial fracture is identified. Maxillofacial: The orbits appear normal. Mucus retention cyst in right frontal sinus, otherwise the paranasal sinuses are clear. The hard palate, mandible,and temporomandibular joints appear normal. Mildly displaced bilateral nasal bone fractures are present involving the nasal bridge and right frontal process. The mastoid air cells are clear. There is extensive right periorbital and facial soft tissue swelling and hemorrhagic contusion. Cervical spine: Trace retrolisthesis of C3 over C4.. Vertebral bodies are normal inheight without evidence of acute fracture. The craniocervical junction isnormal. There is mild to moderate degenerative disc disease predominantly in the mid and lower cervical spine. No significant central canal stenosisseen. There are varying degrees of mild facet osteoarthritis. Moderate uncovertebral joint arthritis is seen at C5-C6, C6-C7. Moderate tosevere bilateral C5-C6 and C6-C7 neural foraminal stenosis is noted. There is atherosclerotic calcification of the carotid bifurcations. Thoracic spine: There is reverse S-shaped scoliosis of the thoracolumbar spine. Mild exaggeration of the thoracic kyphosis. Vertebral bodies are normal in height without evidence of acute fracture. There is fusion of T4-T5 posterior elements. There is mild degenerative disc disease. Schmorl's nodes are present at multiple levels. No central canal stenosis is seen. Level degenerative facet disease. Mild neural foraminal stenosis at multiple levels. No soft tissue abnormality is identified. Lumbar spine: There is levocurvature of the lumbar spine. Vertebral bodies are normalin height without evidence of acute fracture. Multilevel degenerative disc disease seen with endplate osteophytes,, worst at L4-L5 and L5-S1 with vacuum disc phenomena and endplate sclerosis. Calcification of the posterior longitudinal ligament or calcified disc material is seen at these levels. Moderate to severe L4-L5 and L5-S1 central canal stenosis. Mild facet hypertrophy is seen at these levels. Multilevel neural foraminal stenosis, mainly at L5-S1 No soft tissue abnormality is identified. IMPRESSION: 1.No acute intracranial hemorrhage, mass effect, or midline shift. 2.Bilateral nasal bone fractures involving the nasal bridge and right frontal process. Extensive right facial and periorbitalswelling/hematoma. 3.No evidence of acute fracture in the cervical, thoracic, or lumbarspine. This report was approved by Javier Jaylan on 10/03/2018 10:[address] ALY Londono have personally reviewed and interpreted this examination/study. This report was electronically signed by ALY MILLS on10/03/2018 10:27 AM . Alfred Thakkar DO CT ORDERABLES * XR PELVIS 1 OR 2VW (10/02/2018 4:14 PM CDT) Anatomical Region Laterality Modality Pelvis Radiographic Lynette ging 10/02/2018 4:13 PM CDT Impressions 10/04/2018 4:36 PM CDT IMPRESSION: No acute fracture identified. Report dictated by Efren Bauman M.D. (radiology tech). Dr. LEILANI Londono M.D. have personally reviewed and interpreted this examination/study. This report was electronically signed by LEILANI GALEAS M.D. ??on 10/04/2018 4:36 PM . Narrative 10/04/2018 4:36 PM CDT EXAMINATION: XR PELVIS 1 OR 2VW HISTORY: trauma COMPARISON: No prior study is available for comparison. FINDINGS: No acute fracture is identified. The femoral heads appear well-seated within their respective acetabula. The pubic symphysis is intact. Bone density and texture are normal. The sacroiliac joints are normal. Procedure Note Leilani Galeas MD - 10/04/2018 EXAMINATION: XR PELVIS 1 OR 2VW HISTORY: trauma COMPARISON: No prior study is available for comparison. FINDINGS: No acute fracture is identified. The femoral heads appear well-seated within their respective acetabula. The pubic symphysis is intact. Bone density and texture are normal. The sacroiliac joints are normal. IMPRESSION: No acute fracture identified. Report dictated by Efren Bauman M.D. (radiology tech). I, Dr. LEILANI GALEAS M.D. have personally reviewed and interpreted this examination/study. This report was electronically signed by LEILANI GALEAS M.D. on 10/04/2018 4:36 PM . Alfred Thakkar DO DIAGNOSTIC IMAGING O RDERABLES * PTT [facility] (10/02/2018 4:10 PM CDT) APTT 36.9 23.0 - 38.4 Seconds 10/02/2018 4:44 PM CDT [facility] Comment: * Please Note: New therapeutic range for heparin therapy. * Suggested therapeutic range for full dose I.V. heparin therapy for venous thromboembolism is 65 to 103 seconds. Blood BLOOD SPECIMEN / Unknown Venipuncture / Unknown 10/02/2018 4:10 PM CDT 10/02/2018 4:12 PM CDT Alfred Thakkar DO LAB - COAGULATION OR DERABLES [address] [phone] Care Teams Water/Wastewater Engineer Relationship Specialty Start Date End Date Toni Ravi MD [address] [place] [id number] PCP - General Internal Medicine 04/24/23 Jomar Noble MD [address] [place] [address] [address] [place] [address] Hospitalist Internal Medicine 04/24/23
--- OUTSIDE RECORDS SUMMARY | 2024-06-27 04:49 | XMS_ITS | Encounter Summary ---
Author Organization [facility] Address [address] [place] [address] Care Team Providers Care Blackjack Pit Boss Name Role Phone Toni Ravi MD Primary Care Provider [phone] Jomar Noble MD Unavailable Encounter Details Date Type Department Care Team (Late st Contact Info) Description 02/25/2024 1:20 PM CDT Office Visit [facility] [address] [place] [address] [place] [id number] Migue Reeder MD [address] [place] [id number] Thrombocytopenia, secondary (Primary Dx); Abnormal results of liver function studies; Leukopenia, unspecified type Social History Tobacco Use Types Packs/Day Years [...] ??F) 02/25/2024 1:31 PM CDT Respiratory Rate - - Oxygen Saturation 97% 02/25/2024 1:31 PM CDT Inhaled Oxygen Concentration - - Weight 91.4 kg (201 lb 6.4 oz) 02/25/2024 1:31 P M CDT Height 190.5 cm (6' 3 ) 02/25/2024 1:31 PM CDT Body Mass Index 25.17 02/25/2024 1:31 PM CDT documented in this encounter Functional Status [...] this encounter Patient Instructions * Patient Instructions* Lamar Donato MA - 02/25/2024 1:45 PM CDT Continue Folic acid 1mg daily Continue start B complex and thiamine Avoid Nsaids/ETOH F/u with GI as planned F/u in 6 month with JS with cbc, cmp, + b12 /folate +red tube JV documented in this encounter Progress Notes * Migue Reeder MD - 02/26/2024 1:07 PM CDT Please inform patient to continue on his B complex multivitamin ,folic acid and thiamine. 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 Recent blood work there was noted to have a platelet count of 81 prior platelet counts have been low as well. 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 He had seizures was intubated and transferred to [facility] was treated with nicardipine complicated by pneumonia. He was then referred to long-term care facility. Is on several antidepressants and antiseizure medication Patient long-term facility penitentiary resident accompanied by transportation caregiver not aware [...] Chester Dubose Jr. is here for follow-up for thrombocytopenia ID resident. Not accompanied by anyone Overall doing well. Currently on psych medications. Patient denies any bleeding bruising issues appetite good weight stable. Does not recall any of hismedications does not even remember having EGD which was done lost your April No nausea vomiting diarrhea Past Medical History: Past Medical History: Diagnosis Date Anxiety Bipolar 1 disorder (HCC) 10/07/2018 Cirrhosis (HCC) COPD (chronic obstructive pulmonary disease) (HCC) Delirium tremens (HCC) Depression Depression Substance abuse (HCC) Suicide attempt (HCC) TBI (traumatic brain injury) ([facility]) Past Surgical History: Past Surgical History: Procedure Laterality Date Wrist Fracture Repair Left 10/15/2018 Left; OPEN REDUCTION INTERNAL FIXATION (ORIF) WRIST/DISTAL RADIUS Social History: Social History Tobacco Use Smoking status: Every Day Packs/day: 1 Types: Cigarettes Smokeless tobacco: Never Tobacco comments: Smokes 4-6 cigarettes a day Substance Use Topics Alcohol use: Not Currently Family History: No family history on file. Allergies: No Known Allergies Medications: Current Outpatient Medications Medication Sig Dispense Refill acetaminophen (Tylenol) 325 MG tablet Take 2 (two) tablets by mouth every 6 hours as needed amLODIPine (Norvasc) 5 MG tablet 1 (one) tablet once daily atorvastatin (Lipitor) 40 MG tablet B Complex Vitamins (vitamin B complex) CAPS capsule Take 1 (one) capsule by mouth once daily 30 capsule 5 buPROPion XL 24hr (Wellbutrin-XL) 150 MG tablet busPIRone (Buspar) 10 MG tablet calcium carbonate (Tums) 500 MG chew tablet Take 1 (one) tablet by mouth daily with food folic acid (Folvite) 1 MG tablet Take 1 (one) tablet by mouth once daily 30 tablet 5 lacosamide (VIMPAT) 100 MG tablet Take 1 (one) tablet by mouth 2 times daily lactulose (CHRONULAC;ENULOSE) 10 GM/15ML solution Take 15 mL by mouth 3 times daily melatonin 3 MG tablet Take 2 (two) tablets by mouth at bedtime meloxicam (Mobic) 7.5 MG tablet [place]-3 Fatty Acids (fish oil) 500 MG capsule Take by mouth 2 times daily paliperidone CR 24hr (Invega) 3 MG tablet every morning QUEtiapine (SEROquel) 50 MG tablet 3 (three) tablets tamsulosin (FLOMAX) 0.4 MG capsule Take 1 (one) capsule by mouth once daily thiamine 100 MG Take 1 tablet by mouth once daily XIFAXAN 550 MG tablet Take 1 (one) tablet by mouth 2 times daily No current facility-administered medications for this visit. Review of Systems: See HPI Physical Exam: Wt Readings from Last 3 Encounters: 02/25/24 91.4 kg (201 lb 6.4 oz) 10/24/23 91.8 kg (202 lb 6.4 oz) 06/21/23 98.8 kg (217 lb 12.8 oz) Temp Readings from Last 3 Encounters: 02/25/24 98.6 ??F (37 ??C) 10/24/23 98 ??F (36.7 ??C) 06/21/23 97.8 ??F (36.6 ??C) (Temporal) BP Readings from Last 3 Encounters: 02/25/24 140/77 10/24/23 122/78 06/21/23 126/71 Pulse Readings from Last 3 Encounters: 02/25/24 78 10/24/23 79 06/21/23 80 Gen: no distress, comfortable Eyes: no scleral [...] Score: Zero Data: Recent Labs Component Name 02/25/24 1315 10/24/23 0955 06/21/23 1057 WBC 3.5* 2.8* 3.9* HGB 14.4 13.6 13.9 HCT 41.4 39.2 40.7 PLTCOUNT 80* 76* 79* Recent Labs Component Name 10/24/23 1030 06/21/23 1124 04/24/23 1519 SODIUM 140 143 144 POTASSIUM 3.6 4.0 3.9 CHLORIDE 106 107* 109* CO2 21 25 23 BUN 8 6 10 CREATININE 0.71* 0.79 0.76 GLUCOSE 181* 111* 87 CALCIUM 8.8 9.0 9.0 ALBUMIN 3.6* 3.8 3.8 ALKPHOS 131* 161* 160* ALT 40 41 25 AST 64* 76* 44* TBIL 0.9 0.7 0.8 TPROT 6.6 7.0 6.8 EGFR 110 107 109 No results for input(s): LDH in the last 21067 hours. Latest Reference Range & Units 04/24/23 [...] Detected !: Data is abnormal Imagin08/24/21: Chest: Lines/Tubes: Endotracheal tube terminates in the [...] previously and could represent an ingested object. US : 08/26/21 FINDINGS: Abdomen: The liver has a coarse [...] concern for Budd-Chiari syndrome. 4.Trace perihepatic fluid. 06/04/23: Impression: - Normal proximal esophagus and mid esophagus. - Grade I esophageal varices. - Erythematous mucosa in the stomach. - Normal duodenal bulb and second portion of the duodenum. - No specimens collected. Assessments and Recommendations: Mr. Chester Dubose . is a 53 year old male is here for following issues: Thrombocytopenia: Multifactorial-liver cirrhosis splenomegaly , medications possible nutritional deficiencies prior ETOH use, ; [place] [address] with a mildly low white cell countof [...] Borderline folic acid in low normal B12. Patient currently on B complex folic acid and thiamine. Patient here unaccompanied. Denies any alcohol use. Says appetite good weight stable still in penitentiary. Does not recall medications or any changes. Does not recall any hospitalization or any procedures had EGD in April 2023 Today white cell count slightly improved at 3.5 with platelets 81 hemoglobin normal ANC of 1800 Discussed patient at this time continue his vitamins and supplements. If and when counts drop may need to decrease his antipsychotic medications. Will continue observation no immediate need for bone marrow biopsy at this time however may need infuture Leucopenia? Likely medications On Vimpat, BuSpar, Seroquel Continue B12 folic acid WBC is improving. Okay to observe at this point no immediate bone marrow biopsy needed will continue supplements and monitor Hepatic cirrhosis with the portal hypertension, splenomegaly Secondary to ETOH On thiamine Xifaxamin Under GI at [facility] S/p recent EGD- grade 1 varices AFP- WNL has f/u in office and imaging planned. 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 Hematology/Oncology [facility] * Irma Purcell - 02/25/2024 1:32 PM CDT Chester Dubose Jr. BP 140/77 Pulse 78 Temp 98.6 ??F (37 ??C) Ht 1.905 m (6' 3 ) Wt 91.4 kg (201 lb 6.4 oz) SpO2 97% Pain Assessment Pain Score: Zero Depression: PHQ-2:Patient Health Questionnaire-2 Score: 0 PHQ-9: .Allergies and medications reviewed. ROS reviewed by MD. Irma Purcell 02/25/2024 1:32 PM documented in this encounter Plan of Treatment Upcoming Encounters Date Type Department Care Team (Late st Contact Info) Description 08/25/2024 1:10 PM CDT Documentation [facility] [address] [place] [phone] 08/25/2024 1:20 PM CDT Office Visit [address] [phone] Migue Reeder MD [address] [place] [phone] documented as of this encounter Procedures Procedure Name Priority Date/Time Associated Diagnosis Comments COMPREHENSIVE METABOLIC PANEL Routine 02/25/2024 2:09 PM CDT Thrombocytopenia, secondary Abnormal results of liver function studies Leukopenia, unspecified type VITAMIN B12 FOLATE PANEL Routine 02/25/2024 2:09 PM CDT Thrombocytopenia, secondary Abnormal results of liver function studies Leukopenia, unspecified type CBC W AUTO DIFFERENTIAL (CANCER CARE) Routine 02/25/2024 1:15 PM CDT Thrombocytopenia, secondary Abnormal results of liver function studies Leukopenia, unspecified type documented in this encounter Results * VITAMIN B12 FOLATE PANEL (02/25/2024 2:09 PM CDT) Vitamin B12 789 213 - 816 pg/mL [facility] INSURANCE BILL Folate 12.3 7.0 - 31.4 ng/mL [facility] INSURANCE BILL Blood BLOOD SPECIMEN / Unknown 02/25/2024 2:09 PM CDT 02/25/2024 Narrative Resulting Agency Comment Lab Testing performed at: [facility] [address] [place] [address] ??[facility] [id number] Migue Reeder MD LAB - CHEMISTRY MIGUEL GOLD [facility] INSURANCE BILL [address] [place] [address] * (ABNORMAL) COMPREHENSIVE METABOLIC PANEL (02/25/2024 2:09 [...] Resulting Agency Comment Lab Testing performed at: [facility] [address] [place] [address] ??[facility] [id number] Migue Reeder MD LAB - CHEMISTRY MIGUEL GOLD [facility] INSURANCE BILL [address] [place] [address] * (ABNORMAL) CBC W AUTO DIFFERENTIAL (CANCER CARE) (02/25/2024 1:15 PM CDT) WBC 3.5(L) 4.4 - 10.7 x10E9/L 02/25/2024 1:32 PM CDT [facility] Neutrophils % 51.3 44.0 - 73.0 % 02/25/2024 1:32 PM CDT [facility] Lymphocytes % 35.6 20.0 - 43.0 % 02/25/2024 1:32 PM CDT [facility] Monocytes % 9.1 5.0 - 13.0 % 02/25/2024 1:32 PM CDT [facility] Eosinophils % 3.1 0.0 - 6.0 % 02/25/2024 1:32 PM CDT [facility] Basophils % 0.9 0.0 - 2.0 % 02/25/2024 1:32 PM CDT [facility] Neutrophil Absolute 1.80(L) 2.01 - 7.14 x10E9/L 02/25/2024 1:32 PM CDT [facility] Lymphocytes Absolute 1.25 1.07 - 3.94 x10E9/L 02/25/2024 1:32 PM CDT [facility] Monocytes Absolute 0.32 0.26 - 1.07 x10E9/L 02/25/2024 1:32 PM CDT [facility] Eosinophils Absolute 0.11 0 - 0.47 x10E9/L 02/25/2024 1:32 PM CDT [facility] Basophils Absolute 0.03 0 - 0.08 x10E9/L 02/25/2024 1:32 PM CDT [facility] RBC 4.36 3.80 - 5.40 x10E12/L 02/25/2024 1:32 PM CDT [facility] Hemoglobin 14.4 12.0 - 17.6 gm/dL 02/25/2024 1:32 PM CDT [facility] Hematocrit 41.4 35.2 - 51.7 % 02/25/2024 1:32 PM CDT [facility] MCV 95.0 80.7 - 98.3 fl 02/25/2024 1:32 PM CDT [facility] MCH 33.0 26.7 - 34.0 pg 02/25/2024 1:32 PM CDT [facility] MCHC 34.8 30.8 - 35.9 gm/dL 02/25/2024 1:32 PM CDT [facility] RDW-CV 13.7 12.1 - 14.9 % 02/25/2024 1:32 PM CDT [facility] Platelet Count 80(L) 153 - 416 x10E9/L 02/25/2024 1:32 PM CDT [facility] MPV 9.8 9.4 - 12.9 fl 02/25/2024 1:[address] [facility] Blood BLOOD SPECIMEN / Unknown 02/25/2024 1:15 PM CDT 02/25/2024 1:15 PM CDT Narrative [facility] - 02/25/2024 1:32 PM CDT Cancer Care protocol. Automated differential only. ??Manual differential performed upon provider's request. Thrombocytopenia Migue Reeder MD LAB - HEMATOLOGY ORD ERABLES [facility] [address] [place] [phone] documented in this encounter Visit Diagnoses Diagnosis Thrombocytopenia, secondary- Primary Other secondary thrombocytopenia Abnormal results of liver function studies Nonspecific abnormal results of liver function study Leukopenia, unspecified type documented in this encounter Additional Health Concerns Infection Onset Date Last Indicated Resolved Time 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 Care Teams Blackjack Pit Boss Relationship Specialty Start Date End Date Toni Ravi MD [address] [place] [id number] PCP - General Internal Medicine 04/24/23 Jomar Noble MD [address] [address] Hospitalist Internal Medicine 04/24/23 documented as of this encounter
--- OUTSIDE RECORDS SUMMARY | 2024-06-27 04:49 | XMS_ITS | Encounter Summary ---
Author Organization [facility] Address [address] [place] [address] Care Team Providers Care Production Consultant Name Role Phone Toni Ravi MD Primary Care Provider [phone] Jomar Noble MD Unavailable Reason for Visit * Reason Comments Establish Care Encounter Details Date Type Department Care Team (Late st Contact Info) Description 04/24/2023 2:00 PM CNC SPECIALIST Office Visit [facility] [address] [place] [phone] Migue Reeder MD [address] [place] [address] Thrombocytopenia, secondary (Primary Dx); Abnormal results of liver function studies Social History Tobacco Use Types Packs/Day Years [...] Sign Reading Time Taken Comments Blood Pressure 113/71 04/24/2023 2:14 PM CNC SPECIALIST Pulse 88 04/24/2023 2:14 PM CNC SPECIALIST Temperature 36.9 ??C (98.5 ??F) 04/24/2023 2:14 PM CS T Respiratory Rate - - Oxygen Saturation 98% 04/24/2023 2:14 PM CNC SPECIALIST Inhaled Oxygen Concentration - - Weight 96.2 kg (212 lb) 04/24/2023 2:14 PM CNC SPECIALIST Height 190.5 cm (6' 3 ) 04/24/2023 2:14 PM CNC SPECIALIST Body Mass Index 26.5 04/24/2023 2:14 PM CNC SPECIALIST documented in this encounter Functional Status Functional [...] * Patient Instructions* Migue Reeder MD - 04/24/2023 2:52 PM CNC SPECIALIST CBC, CMP, Peripheral review of smear, Vit B12, folate, copper, Acute hepatitis screen, HIV, ,Anti-platelet antibody (direct/indirect), MASSIEL with reflex. Avoid Nsaids F/u in 6-7 weeks with cbc + possible labs SPECIALIST documented in this encounter Progress Notes * Stacie Viveros RN - 04/24/2023 2:26 PM CST BP 113/71 Pulse 88 Temp 98.5 ??F (36.9 ??C) (Temporal) Ht 1.905 m (6' 3 ) Wt 96.2 kg (212 lb) SpO2 98% Depression: PHQ-2:Patient Health Questionnaire-2 Score: 0 PHQ-9: Stacie Viveros RN 04/24/2023 2:26 PM SPECIALIST * Migue Reeder MD - 04/24/2023 2:00 PM CST Hematology/Oncology New Patient Visit Chester Dubose Jr. Age: [age] year old Date of : 1970 Reason for consult: Thrombocytosis Referring physician No referring provider defined for this encounter. Primary care physician Toni Ravi MD History of Present Illness: Patient is a 52 year old male who is referred for thrombocytopenia Chester Dubose Jr. is a 52-year-old male with past medical history of anxiety, bipolar disorder depression, substance abuse the traumatic brain injury and cirrhosis of liver is been referred for evaluation of the thrombocytopenia from her longterm. Recent blood work there was noted to have aplatelet count of 81 prior platelet counts have been low as well. 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 He had seizures was intubated and transferred to [facility] was treated with nicardipine complicated by pneumonia. He was then referred to long-term care facility. Is on several antidepressants and antiseizure medication Patient long-term facility longterm resident accompanied by transportation caregiver not aware [...] pp day, ETOH- None at this time, [facility] [facility] drugs Family Hx no blood d/o or cancer Past Medical History: Past Medical History: Diagnosis Date ??? Anxiety ??? Bipolar 1 disorder (CMS/HCC) 10/07/2018 ??? Cirrhosis (CMS/HCC) ??? COPD (chronic obstructive pulmonary disease) (CMS/HCC) ??? Delirium tremens (CMS/HCC) ??? Depression ??? Depression ??? Substance abuse (CMS/HCC) ??? Suicide attempt (CMS/HCC) ??? TBI (traumatic brain injury) (CMS/HCC) Past Surgical History: Past Surgical History: Procedure [...] tablet 1 (one) tablet once daily ??? lacosamide (VIMPAT) 100 MG tablet Take [...] Exam: Wt Readings from Last 3 Encounters: 04/24/23 96.2 kg (212 lb) 11/17/21 92 kg (202 lb 12.8 oz) 10/13/21 89.8 kg (198 lb) Temp Readings from Last 3 Encounters: 04/24/23 98.5 ??F (36.9 ??C) (Temporal) 11/17/21 98.2 ??F (36.8 ??C) (Oral) 09/13/21 98.4 ??F (36.9 ??C) (Oral) BP Readings from Last 3 Encounters: 04/24/23 113/71 11/17/21 134/82 10/13/21 144/76 Pulse Readings from Last 3 Encounters: 04/24/23 88 11/17/21 64 10/13/21 (!) 9 Gen: no distress, comfortable Eyes: no scleral [...] Score: Zero Data: Recent Labs Component Name 11/17/21 0823 09/13/21 0753 09/08/21 06 WBC 4.5 4.8 4.5 HGB 12.6 10.4* 11.4* HCT 37.9 31.0* 33.8* PLTCOUNT 126* 122* 102* Recent Labs Component Name 11/17/21 0823 09/13/21 0753 09/08/21 0620 08/28/21 0013 08/27/21 1043 08/25/21 0420 08/24/21 1936 10/21/18 0359 10/18/18 0542 SODIUM - - - - - - - 137 137 POTASSIUM 4.1 3.7 4.2 - 3.9 - 3.9 3.9 3.8 CHLORIDE - - - - - - - 107 105 CO2 23 24 25 - 23 - 22 24 26 BUN 9 8 10 - 18 - 10 6* 7* CREATININE 0.62* 0.55* 0.70* - 0.66* - 0.66* 0.58* 0.53* GLUCOSE 134* 93 102 - 133* - 110 112* 89 CALCIUM 8.7 8.0* 7.8* - 7.9* - 8.0* 8.8 8.7 ALBUMIN - - - - - - - - 2.6* ALKPHOS - - - - 100 - 116 - 107 ALT - - - - 37 - 46 - 20 AST - - - - 50* - 79* - 84* TBIL - - - - - - - - 1.1 TPROT - - - - - - - - 6.8 EGFR >90 >90 >90 - >90 - >90 >60 >60 - = values in this interval not displayed. No results for input(s): LDH in the last 99459 hours. Pathology: Imagin08/24/21: Chest: ?? Lines/Tubes: Endotracheal tube terminates [...] for Budd-Chiari syndrome. 4.Trace perihepatic fluid. ?? Assessments and Recommendations: Mr. Chester Dubose . is a 52 year old male is here for following issues: Thrombocytopenia: Multifactorial-liver cirrhosis splenomegaly , medications possible nutritional deficiencies prior ETOH use, ; [place] [address] with a mildly low white cell countof 3.7 K. Discussed with patient various reasons for her thrombocytopenia and his case most common an obviouswould be cirrhosis with splenomegaly. I note in 1 year ago. His platelets were around 120s while he was in hospital. Now in 80s will start investigation to rule out any deficiencies HIV hepatitis the and ablated antibodies or nutritionaldeficiencies Patient is symptomatic no obvious bleeding bruising. No cause found. Platelets remain greater than 50,000 would most likely be doubt did observation if continues to drop further investigation may be warranted. 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 Avoid Nsaids F/u in 6-[address] Toni Ravi MD for allowing us to participate in the care of Mr. Chester Schustermanav Denis. Migue Reeder M.D. Hematology/Oncology [facility] SPECIALIST documented in this encounter Plan of Treatment Upcoming Encounters Date Type Department Care Team (Late st Contact Info) Description 08/25/2024 1:10 PM CDT Documentation [facility] [address] [phone] 08/25/2024 1:20 PM CDT Office Visit [address] [phone] Migue Reeder MD [address] [place] [address] Scheduled Orders Name Type Priority Associated Diagnoses Orde r Schedule PLATELET ANTIBODY DIRECT+INDIRECT BATTERY PANEL Lab Routine Thrombocytopenia, secondary Ordered: 04/24/2023 documented as of this encounter Procedures Procedure Name Priority Date/Time Associated Diagnosis Comments HEPATITIS SCREEN ACUTE ([facility]) Routine 04/24/2023 3:19 PM CNC SPECIALIST Thrombocytopenia, secondary Abnormal results of liver function studies HCV PCR QUANT (NON GRAPH) REFLEXED Routine 04/24/2023 3:19 PM CNC SPECIALIST Thrombocytopenia, secondary Abnormal results of liver function studies HEMATOPATHOLOGY CONSULT Routine 04/24/20 3:19 PM CNC SPECIALIST Thrombocytopenia, secondary HIV-1 HIV-2 ANTIBODY + HIV P24 AG PANEL Routine 04/24/2023 3:19 PM CNC SPECIALIST Thrombocytopenia, secondary MASSIEL BLOOD SCREEN W/REFLEX TITER Routine 04/24/2023 3:19 PM CNC SPECIALIST Thrombocytopenia, secondary PLATELET ANTIBODY PANEL Routine 04/24/20 3:19 PM CNC SPECIALIST Thrombocytopenia, secondary COPPER BLOOD Routine 04/24/2023 3:19 PM CNC SPECIALIST Thrombocytopenia, secondary COMPREHENSIVE METABOLIC PANEL Routine 04/24/2023 3:19 PM CNC SPECIALIST Thrombocytopenia, secondary VITAMIN B12 FOLATE PANEL Routine 04/24/2023 3:19 PM CNC SPECIALIST Thrombocytopenia, secondary CBC W AUTO DIFFERENTIAL ([facility]) Routine 04/24/2023 3:17 PM CNC SPECIALIST Thrombocytopenia, secondary documented in this encounter Results * HCV PCR QUANT (NON GRAPH) REFLEXED (04/24/2023 3:19 PM CNC SPECIALIST) Hepatitis C Virus Quantitation HCV Not Detected [...] Consider repeat testing after one month. 04/24/2023 3:1 9 PM CNC SPECIALIST 04/24/2023 Narrative Resulting Agency Comment Lab Testing performed at: [facility] [place] [address] [facility] ??[facility] [id number] Migue Reeder MD LAB - SEROLOGY ORDER WILLIAN [facility] INSURANCE BILL [address] [place] [address] * (ABNORMAL) HEPATITIS SCREEN ACUTE ([facility]) (04/24/2023 3:19 PM CNC SPECIALIST) Hepatitis A Virus Antibody IgM Negative Negative [facility] INSURANCE BILL Hepatitis B Virus Surface Antigen Negative Negative [facility] INSURANCE BILL Hepatitis B Core Virus Antibody IgM Negative Negative [facility] INSURANCE BILL Hepatitis C Antibody Reactive(A) Non Reactive [facility] INSURANCE BILL Blood BLOOD SPECIMEN / Unknown 04/24/2023 3:19 PM CNC SPECIALIST 04/24/2023 Narrative Resulting Agency Comment Lab Testing performed at: [facility] [place] [address] [facility] ??[facility] [id number] Migue Reeder MD LAB - CHEMISTRY MIGUEL GOLD Performing Organization Address City/[facility]/ZIP Co de Phone Number [facility] INSURANCE BILL [address] [place] [address] * PLATELET ANTIBODY PANEL (04/24/2023 3:19 PM CNC SPECIALIST) HLA Class I Antibody Negative Negative [facility] INSURANCE BILL IIb/IIIa Antibody Negative Negative [facility] INSURANCE BILL Ib/IX Antibody Negative Negative [facility] INSURANCE BILL Ia/IIa Antibody Negative Negative [facility] INSURANCE BILL Glycoprotein IV Antibody Negative Negative [facility] INSURANCE BILL Blood BLOOD SPECIMEN / Unknown 04/24/2023 3:19 PM CNC SPECIALIST 04/24/2023 Narrative Resulting Agency Comment Lab Testing performed at: [facility] [place] [address] [facility] ??[facility] [id number] Migue Reeder MD LAB - CHEMISTRY MIGUEL GOLD [facility] INSURANCE BILL [address] [place] [address] * MASSIEL BLOOD SCREEN W/REFLEX TITER (04/24/2023 3:19 PM CNC SPECIALIST) Pathologist [facility] MASSIEL Negative [facility] INSURANCE BILL Comment: ?Negative ?? <1:80 ?Borderline ??1:80 ?Positive ?? >1:80 ICAP nomenclature: AC-0 For more information about Hep-2 cell patterns use ANApatterns.org, the official website for the International Consensus on Antinuclear Antibody (MASSIEL) Patterns (ICAP). Blood BLOOD SPECIMEN / Unknown 04/24/2023 3:19 PM CNC SPECIALIST 04/24/2023 Narrative Resulting Agency Comment Lab Testing performed at: [address] ??[facility] [id number] Migue Reeder MD LAB - CHEMISTRY MIGUEL GOLD [facility] INSURANCE BILL [address] [place] [address] * HIV-1 HIV-2 ANTIBODY + HIV P24 AG PANEL (04/24/2023 3:19 PM CNC SPECIALIST) Pathologist [facility] HIV Screen 4th Generation w Reflex Non Reactive Non Reactive [facility] INSURANCE BILL Comment: HIV Negative HIV-1/HIV-2 antibodies and HIV-1 p24 antigen were NOT detected. There is no laboratory evidence of HIV infection. Blood BLOOD SPECIMEN / Unknown 04/24/2023 3:19 PM CNC SPECIALIST 04/24/2023 Narrative Resulting Agency Comment [facility]: [facility] [address] [facility] ??[facility] [id number] Migue Reeder MD LAB - CHEMISTRY MIGUEL GOLD Performing Organization Address [facility]/ZIP Co de Phone Number [facility] INSURANCE BILL [address] [place] [address] * COPPER BLOOD (04/24/2023 3:19 PM CNC SPECIALIST) Copper 95 69 - 132 ug/dL [facility] INSURANCE BILL Comment:Detection Limit = 5 Blood BLOOD SPECIMEN / Unknown 04/24/2023 3:19 PM CNC SPECIALIST 04/24/2023 Narrative [facility] INSURANCE BILL - 05/03/2023 3:35 AM CNC SPECIALIST Test(s) [id number], Serum or Plasma was developed and its performance characteristics determined by [facility]. It has not been cleared or approved by the Food and Drug Administration. Resulting Agency Comment Lab Testing performed at: [address] ??[facility] [id number] Migue Reeder MD LAB - CHEMISTRY MIGUEL GOLD Performing Organization Address [facility] Co de Phone Number [facility] INSURANCE BILL [address] [place] [address] * VITAMIN B12 FOLATE PANEL (04/24/2023 3:19 PM CNC SPECIALIST) Vitamin B12 604 232 - 1,245 pg/mL [facility] INSURANCE BILL Folate 6.5 >3.0 ng/mL [facility] INSURANCE BILL Comment: A serum folate concentration of less than 3.1 ng/mL is considered to represent clinical deficiency. Blood BLOOD SPECIMEN / Unknown 04/24/2023 3:19 PM CNC SPECIALIST 04/24/2023 Narrative Resulting Agency Comment Lab Testing performed at: [facility] [address] [facility] ??[facility] [id number] Migue Reeder MD LAB - CHEMISTRY MIGUEL GOLD [facility] INSURANCE BILL [address] [place] [address] * (ABNORMAL) HEMATOPATHOLOGY CONSULT (04/24/2023 3:19 PM CNC SPECIALIST) WBC Morph Appear normal. [facility] INSURANCE BILL [...] BLOOD SPECIMEN / Unknown 04/24/2023 3:19 PM CNC SPECIALIST 04/24/2023 Narrative Resulting Agency Comment Lab Testing performed at: [facility] [address] [facility] [address] ??[place] [id number] Migue Reeder MD LAB - PATHOLOGY/CYTO LOGY ORDERABLES [facility] INSURANCE BILL [address] [place] [address] * (ABNORMAL) COMPREHENSIVE METABOLIC PANEL (04/24/2023 3:19 PM CNC SPECIALIST) Glucose 87 70 - 99 mg/dL [facility] INSURANCE BILL BUN 10 6 - 24 mg/dL [facility] INSURANCE BILL Creatinine 0.76 0.76 - 1.27 mg/dL [facility] INSURANCE BILL eGFR by CKD-EPI 109 >59 mL/min/1.7 3 [facility] INSURANCE BILL BUN/Creatinine Ratio 13 9 - 20 [facility] INSURANCE BILL Sodium 144 134 - 144 mmol/L [facility] INSURANCE BILL Potassium 3.9 3.5 - 5.2 mmol/L [facility] INSURANCE BILL Chloride 109(H) 96 - 106 mmol/L [facility] INSURANCE BILL CO2 23 20 - 29 mmol/L [facility] INSURANCE BILL Calcium 9.0 8.7 - 10.2 mg/dL [facility] INSURANCE BILL Protein Total 6.8 6.0 - 8.5 g/dL [facility] INSURANCE BILL Albumin 3.8 3.8 - 4.9 g/dL [facility] INSURANCE BILL Globulin Total 3.0 1.5 - 4.5 g/dL [facility] INSURANCE BILL Albumin/Globulin Ratio 1.3 1.2 - 2.2 [facility] INSURANCE BILL Bilirubin Total 0.8 0.0 - 1.2 mg/dL [facility] INSURANCE BILL Alkaline Phosphatase 160(H) 44 - 121 IU/L [facility] INSURANCE BILL AST 44(H) 0 - 40 IU/L [facility] INSURANCE BILL ALT 25 0 - 44 IU/L [facility] INSURANCE BILL Blood BLOOD SPECIMEN / Unknown 04/24/2023 3:19 PM CNC SPECIALIST 04/24/2023 Narrative Resulting Agency Comment Lab Testing performed at: [place] [id number] [facility] ??[facility] [id number] Migue Reeder MD LAB - CHEMISTRY MIGUEL GOLD [facility] INSURANCE BILL [address] [place] [address] * (ABNORMAL) CBC W AUTO DIFFERENTIAL ([facility]) (04/24/2023 3:17 PM CNC SPECIALIST) WBC 4.9 4.4 - 10.7 x10E9/L 04/24/2023 3:22 PM CNC SPECIALIST [facility] Neutrophils % 62.5 44.0 - 73.0 % 04/24/2023 3:22 PM CNC SPECIALIST [facility] Lymphocytes % 24.0 20.0 - 43.0 % 04/24/2023 3:22 PM CNC SPECIALIST [facility] Monocytes % 11.1 5.0 - 13.0 % 04/24/2023 3:22 PM CNC SPECIALIST [facility] Eosinophils % 2.0 0.0 - 6.0 % 04/24/2023 3:22 PM CNC SPECIALIST [facility] Basophils % 0.4 0.0 - 2.0 % 04/24/2023 3:22 PM CNC SPECIALIST [facility] Neutrophil Absolute 3.05 2.01 - 7.14 x10E9/L 04/24/2023 3:22 PM CNC SPECIALIST [facility] Lymphocytes Absolute 1.17 1.07 - 3.94 x10E9/L 04/24/2023 3:22 PM CNC SPECIALIST [facility] Monocytes Absolute 0.54 0.26 - 1.07 x10E9/L 04/24/2023 3:22 PM CNC SPECIALIST [facility] Eosinophils Absolute 0.10 0 - 0.47 x10E9/L 04/24/2023 3:22 PM CNC SPECIALIST [facility] Basophils Absolute 0.02 0 - 0.08 x10E9/L 04/24/2023 3:22 PM CNC SPECIALIST [facility] RBC 3.97 3.80 - 5.40 x10E12/L 04/24/2023 3:22 PM CNC SPECIALIST [facility] Hemoglobin 13.0 12.0 - 17.6 gm/dL 04/24/2023 3:22 PM CNC SPECIALIST [facility] Hematocrit 37.8 35.2 - 51.7 % 04/24/2023 3:22 PM CNC SPECIALIST [facility] MCV 95.2 80.7 - 98.3 fl 04/24/2023 3:22 PM CNC SPECIALIST [facility] MCH 32.7 26.7 - 34.0 pg 04/24/2023 3:22 PM CNC SPECIALIST [facility] MCHC 34.4 30.8 - 35.9 gm/dL 04/24/2023 3:22 PM CNC SPECIALIST [facility] RDW-CV 13.6 12.1 - 14.9 % 04/24/2023 3:22 PM CNC SPECIALIST [facility] Platelet Count 81(L) 153 - 416 x10E9/L 04/24/2023 3:22 PM CNC SPECIALIST [facility] MPV 9.8 9.4 - 12.9 fl 04/24/2023 3:22 PM CNC SPECIALIST [facility] Blood BLOOD SPECIMEN / Unknown 04/24/2023 3:17 PM CNC SPECIALIST 04/24/2023 3:17 PM CNC SPECIALIST Narrative [facility] - 04/24/2023 3:22 PM CNC SPECIALIST Cancer Care protocol. Automated differential only. ??Manual differential performed upon provider's request. Thrombocytopenia Migue Reeder MD LAB - HEMATOLOGY ORD ERABLES [facility] [address] [place] [address] documented in this encounter Visit Diagnoses Diagnosis Thrombocytopenia, secondary- Primary Other secondary thrombocytopenia Abnormal results of liver function studies Nonspecific abnormal results of liver function study documented in this encounter Additional Health Concerns Infection Onset Date Last Indicated Resolved Time 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 Care Teams Production Consultant Relationship Specialty Start Date End Date Toni Ravi MD [address] [place] [address] PCP - General Internal Medicine 04/24/23 Jomar Noble MD [facility] [address] Hospitalist Internal Medicine 04/24/23 documented as of this encounter
--- OUTSIDE RECORDS SUMMARY | 2024-06-27 04:49 | XMS_ITS | Clinical Summary ---
Author Organization [facility] Address [address] [facility] [place] [address] Care Team Providers Care Stock Drier Tender Name Role Phone Toni Ravi MD Primary Care Provider [phone] Jomar Noble MD Unavailable Source Comments [facility],non-owned Affiliates and Associated Physician Practices is amultiple site organization consisting of ambulatory clinics and hospital sitesin [place], [place], [place] and [place]. This disclosure is being madepursuant to the Care Everywhere program and may not contain all information available regarding this patient. Last updated 18.[facility] Allergies No known active allergies Medications * [...] once daily 30 capsule 5 06/21/2023 Active [place]-3 Fatty Acids (fish oil) 500 MG capsule [...] Acute respiratory failure with hypoxia 08/25/2021 09/13/2021 Nelson coma scale total score 4 or 5 [...] Mass Index 25.17 02/25/2024 1:31 PM CDT Plan of Treatment Upcoming Encounters Date Type Department Care Team (Late st Contact Info) Description 08/25/2024 1:10 PM CDT Documentation [facility] [address] [place] [phone] 08/25/2024 1:20 PM CDT Office Visit [address] [place] [phone] Migue Reeder MD [address] [place] [address] [place] [phone] Health Maintenance Due Date Last Done Comments COLOGUARD (AGES 45-75) - COLON CA SCREENING 1971 COLON MONITORING 1971 COLONOSCOPY - COLON CA SCREENING 1971 CT COLONOGRAPHY - COLON CA SCREENING 1971 Colorectal Cancer Screening 1971 FIT - COLON CA SCREENING 1971 FLEX SIG - COLON CA SCREENING 1971 MEDICARE AWV ? 12 MONTHS 1971 PNEUMOCOCCAL VACCINE (1 of 2 - PCV) 1977 HEPATITIS B VACCINE (1 of 3 - 19+ 3-dose series) 1990 ZOSTER VACCINE (1 of 2) 2021 COVID-19 VACCINE (4 - 2023- season) 2024 05/27/2021, 10/12/2020, 09/21/2020 INFLUENZA VACCINE (#1) 2024 04/02/2019 SCREENING FOR DIABETES 02/24/2027 , 10/24/2023, 06/21/2023, Additional history exists DTAP/TDAP/TD VACCINES (2 - Td or Tdap) 10/02/2028 10/02/2018 HEPATITIS C SCREENING Completed 04/24/2023 HIV SCREENING Completed 04/24/2023, 08/16, 10/12/2018 HIB VACCINE Aged Out No longer eligi ble based on patient's age to complete this topic HPV VACCINE Aged Out No longer eligi ble based on patient's age to complete this topic MENINGOCOCCAL VACCINE Aged Out No isabel sarina eligible based on patient's age to complete this topic Medical Devices Implanted Type Area Cabinet Mounter Device Identifier Shelf Expiration Date Model / Serial / Lot Plate 59.5x24.4mm 4 Hl Lopro Fx Ang Wire Implanted:Qty: 1 on 10/15/2018 by Maciel Greer MD at [facility] Left: Arm [employer] DVRAL / / Peg Fx 2.5mm 22mm Ft Hand Lck Screw F3 Implanted:Qty: 3 on 10/15/2018 by Maciel Greer MD at [facility] Left: Arm [employer] [id number] / / Peg Thread Multidir2.5x18mm Multidirectional Threaded Pegs Implanted:Qty: 1 on 10/15/2018 by Maciel Greer MD at [facility] Left: Arm [employer] [id number] / / Peg Thread Multidir2.5x20mm Multidirectional Threaded Peg Implanted:Qty: 1 on 10/15/2018 by Maciel Greer MD at [facility] Left: Arm [employer] [id number] / / Screw Cortical 3.5 X14mm Cortical Screws Implanted:Qty: 1 on 10/15/2018 by Maciel Greer MD at [facility] Left: Arm [employer] [id number] / / Screw 3.5mm 16mm Beck Ti Nonster Dvr Implanted:Qty: 2 on 10/15/2018 by Maciel Greer MD at [facility] Left: Arm [employer] [id number] / / Explanted Type Area Cabinet Mounter Device Identifier Shelf Expiration Date Model / Serial / Lot Wire K 1.6mm Ss Fx Nonster Explanted:Qty: 3 on 10/15/2018 by Maciel Greer MD at [facility] Left: Arm [employer] [id number] / / Screw 3.5mm 13mm Beck Ti Nonster Dvr Explanted:Qty: 1 on 10/15/2018 by Maciel Greer MD at [facility] Left: Arm [employer] [id number] / / Procedures Procedure Name Priority Date/Time Associated Diagnosis Comments COMPREHENSIVE METABOLIC PANEL Routine 02/25/2024 2:09 PM CDT Thrombocytopenia, secondary Abnormal results of liver function studies Leukopenia, unspecified type HEPATITIS SCREEN ACUTE ([facility]) Routine 04/24/2023 3:19 PM FARM OPERATIONS TECHNICAL DIRECTOR Thrombocytopenia, secondary Abnormal results of liver function studies HIV-1 HIV-2 ANTIBODY + HIV P24 AG PANEL Routine 04/24/2023 3:19 PM FARM OPERATIONS TECHNICAL DIRECTOR Thrombocytopenia, secondary from Last 3 Months or [...] Resulting Agency Comment Lab Testing performed at: [facility] [address] ??[facility] [phone] Migue Reeder MD LAB - CHEMISTRY MIGUEL GOLD [facility] INSURANCE BILL [address] [place] [address] * (ABNORMAL) HEPATITIS SCREEN ACUTE ([facility]) (04/24/2023 3:19 PM FARM OPERATIONS TECHNICAL DIRECTOR) Hepatitis A Virus Antibody IgM Negative Negative [facility] INSURANCE BILL Hepatitis B Virus Surface Antigen Negative Negative [facility] INSURANCE BILL Hepatitis B Core Virus Antibody IgM Negative Negative [facility] INSURANCE BILL Hepatitis C Antibody Reactive(A) Non Reactive [facility] INSURANCE BILL Blood BLOOD SPECIMEN / Unknown 04/24/2023 3:19 PM FARM OPERATIONS TECHNICAL DIRECTOR 04/24/2023 Narrative Resulting Agency Comment Lab Testing performed at: [facility] [address] ??[facility] [phone] Migue Reeder MD LAB - CHEMISTRY MIGUEL GOLD [facility] INSURANCE BILL [address] [place] [address] * HIV-1 HIV-2 ANTIBODY + HIV P24 AG PANEL (04/24/2023 3:19 PM FARM OPERATIONS TECHNICAL DIRECTOR) HIV Screen 4th Generation w Reflex Non Reactive Non Reactive [facility] INSURANCE BILL Comment: HIV Negative HIV-1/HIV-2 antibodies and HIV-1 p24 antigen were NOT detected. There is no laboratory evidence of HIV infection. Blood BLOOD SPECIMEN / Unknown 04/24/2023 3:19 PM FARM OPERATIONS TECHNICAL DIRECTOR 04/24/2023 Narrative Resulting Agency Comment Lab Testing performed at: [facility] [address] ??[facility] [phone] Migue Reeder MD LAB - CHEMISTRY MIGUEL GOLD [facility] INSURANCE BILL [address] [place] [address] from Last 3 Months or Most Recently [...] 5:43 PM 10/17/2018 6:22 PM Care Teams Stock Drier Tender Relationship Specialty Start Date End Date Toni Ravi MD [address] [place] [phone] PCP - General Internal Medicine 04/24/23 Jomar Noble MD [address] [facility] [address] [place] [address] Hospitalist Internal Medicine 04/24/23
--- OUTSIDE RECORDS SUMMARY | 2024-06-27 04:49 | XMS_ITS | Encounter Summary ---
Author Organization 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 [address] [place] [address] [place] [phone] Migue Reeder MD [address] [place] [phone] Thrombocytopenia, secondary (Primary Dx); Abnormal results of liver function studies; Leukopenia, unspecified type Social History Tobacco Use Types Packs/Day Years Used Date Smoking Tobacco: Every Day Cigarettes Smokeless Tobacco: Never Comments:Smokes 4-6 cigarett es a day Alcohol Use Standard Drinks/Week Comments [...] Answer Date Recorded Patient Health Questionnaire-2 Score 2 10/24/2023 Hunger Vital Sign Answer Date Recorded Within [...] Sign Reading Time Taken Comments Blood Pressure 122/78 10/24/2023 10:03 AM CDT Pulse 79 10/24/2023 10:03 AM CDT Temperature 36.7 ??C (98 ??F) 10/24/2023 10:03 AM CDT Respiratory Rate - - Oxygen Saturation 97% 10/24/2023 10:03 AM CDT Inhaled Oxygen Concentration - - Weight 91.8 kg (202 lb 6.4 oz) 10/24/2023 10:03 AM CDT Height 190.5 cm (6' 3 ) 10/24/2023 10:03 AM CDT Body Mass Index 25.3 10/24/2023 10:03 AM CDT documented in this encounter Functional [...] this encounter Patient Instructions * Patient Instructions* Irma Purcell - 10/24/2023 10:20 AM CDT Continue Folic acid 1mg daily Continue start B complex and thiamine Avoid Nsaids/ETOH F/u with GI specialist for your cirrhosis as planned Consider decreasing antipsychotic medication if WBC continues to drop F/u in 4 month with JS with cbc, cmp, + b12 /folate +red tubeAppointment made SM documented in this encounter Progress Notes * Migue Reeder MD - 10/24/2023 10:10 AM CDT Hematology/Oncology FU Visit Diagnosis: Thrombocytopenia secondary [...] for evaluation of the thrombocytopenia from her retirement. Recent blood work there was noted to have a platelet count of 81 prior platelet counts have been low as well. 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 He had seizures was intubated and transferred to [facility] was treated with nicardipine complicated by pneumonia. He was then referred to long-term care facility. Is on several antidepressants and antiseizure medication Patient long-term facility retirement resident accompanied by transportation caregiver not aware [...] Jr. is here for follow-up for thrombocytopenia and accompanied by his sister [place], [place] resident. Overall doing well. Currently on psych medications. Denies any increasing doses. Denies any EtOH use while in retirement. Past Medical History: Past Medical History: Diagnosis Date Anxiety Bipolar 1 disorder (HCC) 10/07/2018 Cirrhosis (HCC) COPD (chronic obstructive pulmonary disease) (HCC) Delirium tremens (HCC) Depression Depression Substance abuse (HCC) Suicide attempt (HCC) TBI (traumatic brain injury) (HCC) Past Surgical History: Past Surgical History: Procedure [...] MG tablet busPIRone (Buspar) 10 MG tablet folic acid (Folvite) 1 MG tablet Take 1 (one) tablet by mouth once daily 30 tablet 5 lacosamide (VIMPAT) 100 MG tablet Take 1 (one) tablet by mouth 2 times daily lactulose (CHRONULAC;ENULOSE) 10 GM/15ML solution Take 15 mL by mouth 3 times daily melatonin 3 MG tablet Take 2 (two) tablets by mouth at bedtime paliperidone CR 24hr (Invega) 3 MG tablet [...] Exam: Wt Readings from Last 3 Encounters: 10/24/23 91.8 kg (202 lb 6.4 oz) 06/21/23 98.8 kg (217 lb 12.8 oz) 04/24/23 96.2 kg (212 lb) Temp Readings from Last 3 Encounters: 10/24/23 98 ??F (36.7 ??C) 06/21/23 97.8 ??F (36.6 ??C) (Temporal) 04/24/23 98.5 ??F (36.9 ??C) (Temporal) BP Readings from Last 3 Encounters: 10/24/23 122/78 06/21/23 126/71 04/24/23 113/71 Pulse Readings from Last 3 Encounters: 10/24/23 79 06/21/23 80 04/24/23 88 Gen: no distress, comfortable Eyes: no scleral [...] Score: Zero Data: Recent Labs Component Name 10/24/23 0955 06/21/23 1057 04/24/23 1519 WBC 2.8* 3.9* 4.6 HGB 13.6 13.9 13.4 HCT 39.2 40.7 37.5 PLTCOUNT 76* 79* 84* Recent Labs Component Name 06/21/23 1124 04/24/23 1519 11/17/21 0823 08/28/21 0013 08/27/21 1043 08/24/21 1936 10/21/18 0359 10/18/18 0542 SODIUM 143 144 - - - - 137 137 POTASSIUM 4.0 3.9 4.1 - 3.9 - 3.9 3.8 CHLORIDE 107* 109* - - - - 107 105 CO2 25 23 23 - - 24 26 BUN 6 10 9 - 18 - 6* 7* CREATININE 0.79 0.76 0.62* - 0.66* - 0.58* 0.53* GLUCOSE 111* 87 134* - 133* - 112* 89 CALCIUM 9.0 9.0 8.7 - 7.9* - 8.8 8.7 ALBUMIN 3.8 3.8 - - - - - 2.6* ALKPHOS 161* 160* - - 100 - - 107 ALT 41 25 - - 37 - - 20 AST 76* 44* - - 50* - - 84* TBIL 0.7 0.8 - - - - - 1.1 TPROT 7.0 6.8 - - - - - 6.8 EGFR 107 109 >90 - >90 - >60 >60 - = values in this interval not displayed. No results for input(s): LDH in the last 96550 hours. Latest Reference Range & Units 04/24/23 [...] [place] [address] with a mildly low white cell countof [...] on B complex folic acid and thiamine. Denies any recent alcohol use. He remains on psychiatric medications. No new medications as per caregiver knowledge. White cell is slightly lower at 2.8, platelets overall stable. No active bleeding issues. Discussed that this time okay to watch his counts as overall stable however if white cell and platelets continue to drop may need to consider bone marrow biopsy. Meanwhile if white cell platelets drop further may need to consider decreasing dose of psychiatric medication like Vimpat. Leucopenia? Likely medications On Vimpat, BuSpar, Seroquel Continue B12 folic acid Continue monitoring if white cell continues to drop may need to consider decreasing some iron psychiatric medications. Hepatic cirrhosis with the portal hypertension, splenomegaly Secondary to ETOH On thiamine Xifaxamin Under GI at [facility] S/p recent EGD- grade 1 varices AFP- WNL has f/u in office and imaging planned. Abnormal LFTs-2/2 cirrhosis hepatitis and HIV neg Bipolar disorder On Seroquel Traumatic brain injury secondary to suicidal ideation And ingestion of toxins Presented with seizures was intubated On Vimpat History of polysubstance abuse correction resident Plan: Continue Folic acid 1mg daily Continue start B complex and thiamine Avoid Nsaids/ETOH F/u with as planned Consider decreasing antipsychotic medication if WBC continues to drop F/u in 4 month with JS/MIESHA with cbc, cmp, + b12 /folate +red tube Migue Reeder M.D. Hematology/Oncology [facility] * Danae Cardoza RN - 10/24/2023 10:01 AM CDT Chester Eddie Dubose Jr. Patient states he takes all his medications but does not know specifically which ones when asked. Marked them all unknown. BP 122/78 Pulse 79 Temp 98 ??F (36.7 ??C) Ht 1.905 m (6' 3 ) Wt 91.8 kg (202 lb 6.4 oz) SpO2 97% Pain Assessment Pain Score: Zero Depression: PHQ-2:Patient Health Questionnaire-2 Score: 2 PHQ-9: Allergies and medications reviewed. ROS reviewed by MD Danae Cardoza, RN 10/24/2023 10:05 AM documented in this encounter Plan of Treatment Upcoming Encounters Date Type Department Care Team (Late st Contact Info) Description 08/25/2024 1:10 PM CDT Documentation [facility] [address] [place] [phone] 08/25/2024 1:20 PM CDT Office Visit [address] [phone] Migue Reeder MD [address] [place] [phone] documented as of this encounter Procedures Procedure Name Priority Date/Time Associated Diagnosis Comments COMPREHENSIVE METABOLIC PANEL Routine 10/24/2023 10:30 AM CDT Thrombocytopenia, secondary Abnormal results of liver function studies VITAMIN B12 FOLATE PANEL Routine 10/24/2023 10:30 AM CDT Thrombocytopenia, secondary Abnormal results of liver function studies CBC W AUTO DIFFERENTIAL ([facility]) Routine 10/24/2023 9:55 AM CDT Thrombocytopenia, secondary Abnormal results of liver function studies documented in this encounter Results * VITAMIN B12 FOLATE PANEL (10/24/2023 10:30 AM CDT) Vitamin B12 748 232 - 1,245 pg/mL [facility] INSURANCE BILL Folate >20.0 >3.0 ng/mL [facility] INSURANCE BILL Comment: A serum folate concentration of less than 3.1 ng/mL is considered to represent clinical deficiency. Blood BLOOD SPECIMEN / Unknown 10/24/2023 10:30 AM CDT 10/24/2023 Narrative Resulting Agency Comment Lab Testing performed at: [facility] [address] ??[facility] [phone] Migue Reeder MD LAB - CHEMISTRY MIGUEL GOLD [facility] INSURANCE BILL [address] [place] [address] * (ABNORMAL) COMPREHENSIVE METABOLIC PANEL (10/24/2023 10:30 AM CDT) Glucose 181(H) 70 - 99 mg/dL [facility] INSURANCE BILL BUN 8 6 - 24 mg/dL [facility] INSURANCE BILL Creatinine 0.71(L) 0.76 - 1.27 mg/dL [facility] INSURANCE BILL eGFR by CKD-EPI 110 >59 mL/min/1.7 3 [facility] INSURANCE BILL BUN/Creatinine Ratio 11 9 - 20 [facility] INSURANCE BILL Sodium 140 134 - 144 mmol/L [facility] INSURANCE BILL Potassium 3.6 3.5 - 5.2 mmol/L [facility] INSURANCE BILL Chloride 106 96 - 106 mmol/L [facility] INSURANCE BILL CO2 21 20 - 29 mmol/L [facility] INSURANCE BILL Calcium 8.8 8.7 - 10.2 mg/dL [facility] INSURANCE BILL Protein Total 6.6 6.0 - 8.5 g/dL [facility] INSURANCE BILL Albumin 3.6(L) 3.8 - 4.9 g/dL [facility] INSURANCE BILL Globulin Total 3.0 1.5 - 4.5 g/dL [facility] INSURANCE BILL Albumin/Globulin Ratio 1.2 1.2 - 2.2 [facility] INSURANCE BILL Bilirubin Total 0.9 0.0 - 1.2 mg/dL [facility] INSURANCE BILL Alkaline Phosphatase 131(H) 44 - 121 IU/L [facility] INSURANCE BILL AST 64(H) 0 - 40 IU/L [facility] INSURANCE BILL ALT 40 0 - 44 IU/L [facility] INSURANCE BILL Blood BLOOD SPECIMEN / Unknown 10/24/2023 10:30 AM CDT 10/24/2023 Narrative Resulting Agency Comment [facility]: [facility] [address] ??[facility] [phone] Migue Reeder MD LAB - CHEMISTRY MIGUEL GOLD [facility] INSURANCE BILL [address] [place] [address] * (ABNORMAL) CBC W AUTO DIFFERENTIAL ([facility]) (10/24/2023 9:55 AM CDT) WBC 2.8(L) 4.4 - 10.7 x10E9/L 10/24/2023 10:04 AM CDT [facility] Neutrophils % 41.0(L) 44.0 - 73.0 % 10/24/2023 10:04 AM CDT [facility] Lymphocytes % 42.1 20.0 - 43.0 % 10/24/2023 10:04 AM CDT [facility] Monocytes % 12.6 5.0 - 13.0 % 10/24/2023 10:04 AM CDT [facility] Eosinophils % 3.2 0.0 - 6.0 % 10/24/2023 10:04 AM CDT [facility] Basophils % 1.1 0.0 - 2.0 % 10/24/2023 10:04 AM CDT [facility] Neutrophil Absolute 1.14(L) 2.01 - 7.14 x10E9/L 10/24/2023 10:04 AM CDT [facility] Lymphocytes Absolute 1.17 1.07 - 3.94 x10E9/L 10/24/2023 10:04 AM CDT [facility] Monocytes Absolute 0.35 0.26 - 1.07 x10E9/L 10/24/2023 10:04 AM CDT [facility] Eosinophils Absolute 0.09 0 - 0.47 x10E9/L 10/24/2023 10:04 AM CDT [facility] Basophils Absolute 0.03 0 - 0.08 x10E9/L 10/24/2023 10:04 AM CDT [facility] RBC 4.16 3.80 - 5.40 x10E12/L 10/24/2023 10:04 AM CDT [facility] Hemoglobin 13.6 12.0 - 17.6 gm/dL 10/24/2023 10:04 AM CDT [facility] Hematocrit 39.2 35.2 - 51.7 % 10/24/2023 10:04 AM CDT [facility] MCV 94.2 80.7 - 98.3 fl 10/24/2023 10:04 AM CDT [facility] MCH 32.7 26.7 - 34.0 pg 10/24/2023 10:04 AM CDT [facility] MCHC 34.7 30.8 - 35.9 gm/dL 10/24/2023 10:04 AM CDT [facility] RDW-CV 14.5 12.1 - 14.9 % 10/24/2023 10:04 AM CDT [facility] Platelet Count 76(L) 153 - 416 x10E9/L 10/24/2023 10:04 AM CDT [facility] CC LAB [facility] MPV 9.2(L) 9.4 - 12.9 fl 10/24/2023 10:04 AM CDT [facility] LAB [facility] Blood BLOOD SPECIMEN / Unknown 10/24/2023 9:55 AM CDT 10/24/2023 9:55 AM CDT Narrative [facility] - 10/24/2023 10:04 AM CDT Cancer Care protocol. Automated differential only. ??Manual differential performed upon provider's request. 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
--- OUTSIDE RECORDS SUMMARY | 2024-06-27 04:49 | XMS_ITS | Encounter Summary ---
Author Organization [facility] Address [address] [facility] [place] [address] Care Team Providers Care Short Piece Handler Name Role Phone Unavailable Primary Care Provider Unavailabl e Reason for Visit * Radiology Services (Routine) - Closed Specialty Diagnoses / Procedures Referred By Contact Referred To Contact Interventional Radiology Diagnoses Cerebral atherosclerosis Procedures IR CAROTID CEREBRAL ANGIOGRAM Summer Villagomez MD [address] [place] [address] [facility] [address] [place] [address] Referral ID Status Reason Start Date Expiration Date Visits Re quested Visits Authorized [id number] Closed 11/07/2021 10/20/2022 1 1 Encounter Details Date Type Department Care Team (Latest Contact Info) Description 11/17/2021 7:49 AM CDT - 11/17/2021 1:39 PM CDT Hospital Encounter [facility] [address] [place] [address] Summer Villagomez MD [address] [place] [address] Vascular Surgery Discharge Disposition: Nursing Facility:Medicaid Social History Tobacco Use Types Packs/Day Years [...] more drinks on one occasion? Never 11/17/2021 Hunger Vital Sign Answer Date Recorded Within [...] Sign Reading Time Taken Comments Blood Pressure 134/82 11/17/2021 12:45 PM CDT Pulse 64 11/17/2021 12:45 PM CDT Temperature 36.8 ??C (98.2 ??F) 11/17/2021 11:45 AM C DT Respiratory Rate 15 11/17/2021 12:45 PM CDT Oxygen Saturation 97% 11/17/2021 12:45 PM CDT Inhaled Oxygen Concentration - - Weight 92 kg (202 lb 12.8 oz) 11/17/2021 8:03 AM CDT Height 190.5 cm (6' 3 ) 11/17/2021 8:03 AM CDT Body Mass Index 25.35 11/17/2021 8:03 AM CDT documented in this encounter Functional [...] Yes 11/17/2021 documented as of this encounter Discharge Instructions * Discharge Instructions* Valdo Arevalo MD - 11/17/2021 11:11 AM CDT INTERVENTIONAL NEUROLOGY/RADIOLOGY OUTPATIENT PHYSICIAN DISCHARGE ORDER Activity: No lifting > 20 pounds x 3 days Post Moderate Sedation instructions: During the procedure, you received sedation medications that might linger in your system up to 24 hours after administration. Therefore, for the next 24 hours, donot drive a car or use heavy equipment. An adult should drive you home and stay with you after you have had moderate sedation. Follow your caregiver's advice about making changes to your diet, activity, or medicine. Avoid hardexercise right after having moderate sedation. Do not drink alcoholic beverages, such as beer and wine etc. Do not make important decisions for 24 hours (one day) after having moderate sedation like big financial decisions, selling property, etc. Medications: See the after visit summary for a complete list. IF prescribed pain medications, do not take on an empty stomach. Do not drive, drink alcohol or operate machinery while taking medication. We have not made anychanges to your previously prescribed medications. Diet: No restrictions Dressing Care: wash off at 3 days Wound Care: keep covered with band aid until fully healed Call Doctor: Please call [phone], and ask a operator to page Dr. Arevalo If you have one or more of the following, please call your physician: A. Redness or swelling of the operative site. B. Persistent bleeding through bandage. C. Severe pain which is not relieved by oral pain medication. D. Temperature above 101 degrees or severe chilling. E. Foul odor of drainage. If you are unable to reach your physician with an urgent or severe problem: 1. Call ([phone]) and ask the a operator to page/connect to the neurology or stroke resident telephone sales representative. 2. Call the emergency room at . documented in this encounter Medications at Time of Discharge Medication Sig Dispensed Refills Start Date End Date lacosamide (VIMPAT) 100 MG tablet Take 1 (one) tablet by mouth 2 times daily 09/13/2021 lactulose (CHRONULAC;ENULOSE) 10 GM/15ML solution Take 15 mL by mouth 3 times daily melatonin 3 MG tablet Take 2 (two) tablets by mouth at bedtime 09/13/2021 tamsulosin (FLOMAX) 0.4 MG capsule Take 1 (one) capsule by mouth once daily 06/20/2021 thiamine 100 MG Take 1 tablet by mouth once daily 10/18/2018 XIFAXAN 550 MG tablet Take 1 (one) tablet by mouth 2 times daily 07/04/2021 QUEtiapine (SEROQUEL) 100 MG tablet Take 1 (one) tablet by mouth 2 times daily 09/13/2021 04/24/2023 documented as of this encounter Progress Notes * Valdo Arevalo MD - 11/17/2021 11:31 AM CDT Sister updated about result of angio which was normal. * Candace Whelan RN - 11/17/2021 11:04 AM CDT Start End 1105 Fentanyl 100 mcg Versed 2 mg Contrast 80 ml of isovue 250 Fluro 8.8 min * Candace Whelan RN - 11/17/2021 10:10 AM CDT Patient to IR room 1 via stretcher with rails up. Stretcher placed next to procedure table with side rail lowered and wheels in locked position. Patient moved self under own power to table. Arm boards in place. Patient placed on senior energy analyst, blood pressure cuff, pulse ox, and ETCO2. documented in this encounter H&P Notes * Valdo Arevalo MD - 11/17/2021 10:00 AM CDT Neuro Intervention H & P Patient Name: Chester Dubose JrDenis Age: [age] year old Reason for Angiogram: Hx of left parietal IPH, to evaluate for possible underlying vascular abnormality. History: The patient is a 51 year old male who is here to undergo a cerebral angiogram. She presented to [facility] in August 2021 with left parietal IPH. Etiology was thought to be due to HTN d/t suicide attempt after ingesting meth. CTA showed no underlying vascular abnormality. He lives in a group home (due to his mental issues) and dependent with some activities of daily living. He is here for a diagnostic cerebral catheter angiogram to evaluate for underlying vascular abnormality. The angiogram is going to be performed by Physical Examination: Mental Status: Awake, alert, oriented to name and place not to time. Dysarthria and difficulty following complex command CN: Pupils 3 mm both sides, poor vision in both eyes, face symmetric Motor: 4/5 in all extremities, no drift Sensory: Reports equal to light touch bilaterally Coord: FNF intact bilaterally Labs Cr 0.62 INR 1.4 Plt 126 Sedation Risk Assessment Any oral intake after midnight? No Time of last oral intake: > 8 hrs Previous adverse reaction to conscious sedation or other types of anesthesia? No Aspiration risk? No History of substance abuse? No Possibility of ? No History of stridor, snoring, disturbed sleep or obstructive sleep apnea? No History of oropharyngeal surgery? No History of chronic analgesic drugs? No History of gastric outlet obstruction, intestinal obstruction or hiatal hernia? No ASA physical status classification: ASA 3 - Patient with moderate systemic disease with functional limitations Mallampati 2 Pre-procedure mRS (modified kerry score)- 3 Sedation Plan: Moderate sedation The risks and benefits for the procedure were explained in detail to patient and sister/POA (Sarah Dubose). The risk of contrast reaction, damage to the femoral artery, and stroke were specifically mentioned. Written informed consent was obtained. Assessment/Plan 51 year old male that presented with hx of left parietal IPH. Etiology was thought to be due to HTNd/t suicide attempt with ingesting meth. CTA showed underlying vascular abnormality. He is here fora diagnostic cerebral catheter angiogram to evaluate for possible underlying vascular abnormality. Discussed with Vascular and Neuro-intervention attending Dr. Villagomez. Valdo Arevalo MD 10:04 PM documented in this encounter OR Notes * Brief Op Note - Valdo Arevalo MD - 11/17/2021 10:29 AM CDT Brief OP Note Procedure: Cerebral angiogram Reason: Hx of left parietal IPH, to evaluate for possible underlying vascular abnormality. Railroad Baggage Porter: Rivera Villagomez Mat Machine Tender: Ida Arevalo Post-procedure mRS (modified kerry score)- 3 Findings: 1. Azygous anterior cerebral artery which is normal variant 2. No underling vascular abnormality was visualized as the etiology of IPH Complications: no immediate complications EBL: 20 ml Dispostion: Recovery * Brief Op Note - Valdo Arevalo MD - 11/17/2021 10:29 AM CDT Post Sedation Note Chester Dubose Jr. is a 51 year old male born on 1970 Unit that procedure is to be preformed: IVR 1 Pre-Procedure Diagnosis: Hx of left parietal IPH, to evaluate for possible underlying vascular abnormality Procedure: Cerebral angiogram Post Procedure Diagnosis: 1. Azygous anterior cerebral artery which is normal variant 2. No underling vascular abnormality was visualized as the etiology of IPH Complications: none Monitoring: Monitoring consisted of: heart rate, senior energy analyst, continuous pulse oximetry, continuous capnometry, frequent blood pressure checks, level of consciousness, IV access, and constant attendance by RN until patient recovered. Response: Vital signs stable, airway patent, and O2 saturations greater than 92%. Patient Status Post Procedure: Activity: Able to move four extremities voluntarily on command = 2 Respiration: Able to breathe deeply and cough freely = 2 Circulation: Blood pressure +/- 20mm Hg of normal = 2 Consciousness: Fully awake =2 Color: 2 - color is WNL Shayla Score: 10 Temperature: Normalthermic Pain: 0 Post sedation nausea & vomiting present: no nausea and no vomiting Post-sedation hydration status Is adequate: Yes Total Physician Drug Administration / Monitoring Time: 36 minutes. Patient was monitored during recovery and returned to pre-procedure baseline. Discharge plan: Recovery documented in this encounter Plan of Treatment Upcoming Encounters Date Type Department Care Team (Late st Contact Info) Description 08/25/2024 1:10 PM CDT Documentation [place] [id number] [facility] [address] [place] [phone] 08/25/2024 1:20 PM CDT Office Visit [facility] [address] [place] [address] [address] [place] [phone] Migue Reeder MD [address] [facility] [address] [place] [id number] documented as of this encounter Procedures Procedure Name Priority Date/Time Associated Diagnosis Comments IR CAROTID CEREBRAL ANGIOGRAM Routine 11/17/2021 11:06 AM CDT Cerebral atherosclerosis PT-INR [facility] STAT 11/17/2021 8:23 AM CDT Hx of intracranial hemorrhage CBC W AUTO DIFFERENTIAL STAT 11/17/2021 8:23 AM CDT Hx of intracranial hemorrhage BASIC METABOLIC PANEL (CALCIUM TOTAL) STAT 11/17/2021 8:23 AM CDT Hx of intracranial hemorrhage documented in this encounter Results * IR CAROTID CEREBRAL [...] angiogram toevaluate for possible underlying vascular abnormality. Railroad Baggage Porter: Rivera Villagomez Mat Machine Tender(s): Ida Arevalo Vessels: Ultrasound guided access of [...] patient evaluation, please review the evaluation in [facility]. For details on monitored clinical parameters during the intra-service sedation time, please review the procedure nurse documentation in [facility]. Procedural detail: The risks, benefits, and alternatives [...] Following a series of exchanges, a 5 [facility] Slender Glidesheath was placed in the right radial artery. Heparin 3,000 units, verapamil 2.5 mg and nitroglycerin 300 mcg were given through the sheath for vasospasm prophylaxis. A 5 [facility] Cain 2 catheter was navigated into the [...] underlying vascular abnormality was visualized. Procedure Note Villagomez, Summer, MD - 11/22/2021 Procedure: Cerebral angiogram 11/17/2021 Comparison study: None History: The patient a 51 years -year-old Male with hx of left parietal IPH. He is here for a diagnostic cerebral catheter angiogram toevaluate for possible underlying vascular abnormality. Railroad Baggage Porter: Rivera Villagomez Mat Machine Tender(s): Ida Arevalo Vessels: Ultrasound guided access of [...] patient evaluation, please review the evaluation in [facility]. For details on monitored clinical parameters during the intra-servicesedation time, please review the procedure nurse documentation in [facility]. Procedural detail: The risks, benefits, and alternatives [...] documented. Following aseries of exchanges, a 5 [facility] Slender Glidesheath was placed in the right radial artery. Heparin 3,000 units, verapamil 2.5 mg and [id number] mcg were given through the sheath for vasospasm prophylaxis. A 5 [facility] Cain 2 catheter was navigated into the [...] Villagomez MD IR ORDERABLES * (ABNORMAL) PT-INR [facility] (11/17/2021 8:23 AM CDT) PT 16.8(H) 12.1 - 14.8 Seconds 11/17/2021 8:54 AM CDT [facility] INR 1.4 See Comment 11/17/2021 8:54 AM CDT [facility] Comment:The suggested therap eutic range for standard coumadin (warfarin) therapy is an INR of 2.0-3.0. For high-risk patients (Mechanical Mitral Valve Prosthesis, etc.), the suggested prophylactic therapeutic range is an INR of 2.5-3.5. Blood BLOOD SPECIMEN / Unknown Venipuncture / Unknown 11/17/2021 8:23 AM CDT 11/17/2021 8:33 AM CDT Valdo Arevalo MD LAB - COAGULATION OR DERABLES [facility] [address] [address], [facility] [phone] * (ABNORMAL) CBC W AUTO DIFFERENTIAL (11/17/2021 8:23 AM CDT) WBC 4.5 3.5 - 10.5 10? 3 /uL 11/17/2021 8:38 AM [facility] RBC 4.01(L) 4.30 - 5.70 10? 6 /uL 11/17/2021 8:38 AM [facility] Hemoglobin 12.6 12.0 - 17.6 g/dL 11/17/2021 8:38 AM [facility] Hematocrit 37.9 35.2 - 51.7 % 11/17/2021 8:38 AM [facility] MCV 94.5 80.7 - 98.3 fL 11/17/2021 8:38 AM [facility] MCH 31.4 26.7 - 34.0 pg 11/17/2021 8:38 AM [facility] MCHC 33.2 30.8 - 35.9 g/dL 11/17/2021 8:38 AM [facility] Platelet Count 126(L) 150 - 400 10? 3 /uL 11/17/2021 8:38 AM [facility] RDW-SD 48.1 36.0 - 50.0 fL 11/17/2021 8:38 AM [facility] RDW-CV 13.9 11.2 - 14.8 % 11/17/2021 8:38 AM [facility] MPV 9.5 9.4 - 12.9 fL 11/17/2021 8:38 AM [facility] nRBC Absolute 0.00 0 10? 3 /uL 11/17/2021 8:38 AM [facility] nRBC Auto 0.0 0 /100 WBC 11/17/2021 8:38 AM [facility] Neutrophils % 64.4 35.0 - 70.0 % 11/17/2021 8:38 AM [facility] Lymphocytes % 19.1(L) 20.0 - 43.0 % 11/17/2021 8:38 AM [facility] Monocytes % 13.0 5.0 - 13.0 % 11/17/2021 8:38 AM [facility] Eosinophils % 2.2 0.0 - 6.0 % 11/17/2021 8:38 AM [facility] Basophil % 1.1 0.0 - 2.0 % 11/17/2021 8:38 AM [facility] Neutrophils Absolute 2.9 1.6 - 7.0 10? 3 /uL 11/17/2021 8:38 AM [facility] Lymphocyte Absolute 0.9(L) 1.1 - 3.9 10? 3 /uL 11/17/2021 8:38 AM [facility] Monocytes Absolute 0.58 0.26 - 1.07 10? 3 /uL 11/17/2021 8:38 AM [facility] Eosinophils Absolute 0.10 0.00 - 0.47 10? 3 /uL 11/17/2021 8:38 AM [facility] Basophils Absolute 0.05 0.00 - 0.08 10? 3 /uL 11/17/2021 8:38 AM [facility] Immature Granulocytes % 0.2 0.0 - 1.0 % 11/17/2021 8:38 AM [facility] Immature Granulocytes Absolute 0.01 11/17/2021 8:38 AM [facility] Blood BLOOD SPECIMEN / Unknown Venipuncture / Unknown 11/17/2021 8:23 AM CDT 11/17/2021 8:33 AM T Valdo Arevalo MD LAB - HEMATOLOGY ORD ERABLES [facility] [address] [place] [address], [facility] [phone] * (ABNORMAL) BASIC METABOLIC PANEL (CALCIUM TOTAL) (11/17/2021 8:23 AM CDT) BUN 9 7 - 26 mg/dL 11/17/2021 9:00 AM [facility] Creatinine 0.62(L) 0.71 - 1.16 mg/dL 11/17/2021 9:00 AM [facility] Sodium 141 136 - 145 mmol/L 11/17/2021 9:00 AM [facility] Potassium 4.1 3.5 - 4.5 mmol/L 11/17/2021 9:00 AM [facility] Chloride 112(H) 98 - 107 mmol/L 11/17/2021 9:00 AM [facility] CO2 23 22 - 29 mmol/L 11/17/2021 9:00 AM [facility] Glucose 134(H) 70 - 115 mg/dL 11/17/2021 9:00 AM [facility] Calcium 8.7 8.4 - 10.2 mg/dL 11/17/2021 9:00 AM [facility] Anion Gap 10 8 - 18 11/17/2021 9:00 AM [facility] BUN/Creatinine Ratio 15 7 - 23 11/17/2021 9:00 AM [facility] Osmolality Calculated 293 270 - 300 mOsm/kg 11/17/2021 9:00 AM [facility] eGFR by CKD-EPI >90 >=90 mL/min/1.7 3 m2 11/17/2021 9:00 AM [facility] Blood BLOOD SPECIMEN / Unknown Venipuncture / Unknown 11/17/2021 8:23 AM T 11/17/2021 8:33 AM [facility] Valdo Arevalo MD LAB - CHEMISTRY MIGUEL GOLD [facility] Organization Address City/State/ZIP Co de Phone Number [facility] [address] [place] [phone], [facility] [phone] documented in this encounter Visit Diagnoses Diagnosis Hx of intracranial hemorrhage- Primary Personal history of other diseases of circulatory system Cerebral atherosclerosis documented in this encounter Administered Medications Inactive Administered Medications - up to 3 most recent administrations Medication Order MAR Action Action Date Dose Rate Site 0.9% NaCl injection 1-10 mL 1-10 mL, Intracatheter, PRN, Other, peripheral line flush, Starting on Mendy 11/17/21 at 0754, Until 11/21/21 at 0911, Flush peripheral IV catheter with 1-10 mL of normal saline before and after medications and prn to clear blood from the line or to verify patency., Pre-procedure (IR) 0.9% NaCl injection 3 mL 3 mL, Intracatheter, EVERY 8 HOURS, First dose on Mendy 11/17/21 at 0800, Until Discontinued, Flush peripheral IV catheter with 3 mL of normal saline every 8 hours., Pre-procedure (IR) fentaNYL (PF) (Sublimaze) injection ONCE PRN, Starting on Mendy 11/17/21 at 1027, Until Mendy 11/17/21 at 1045 $ Given 11/17/2021 10:45 AM CDT 50 mcg $ Given 11/17/2021 10:27 AM CDT 50 mcg heparin 3,000 Units, nitroGLYCERIN (Tridil) 300 mcg, verapamil (Isoptin) 2.5 mg 4.1 mL ONCE PRN, Starting on Mendy 11/17/21 at 1015, Until Mendy 11/17/21 at 1015 $ Given 11/17/2021 10:15 AM CDT heparinized saline 2 units/ml infusion Other, CONTINUOUS PRN, Starting on Mendy 11/17/21 at 1015, Until Mendy 11/17/21 at 1015 $ New Bag/Syringe 11/17/2021 10:15 AM CDT 2,500 mL lidocaine (Xylocaine) 1 % injection Subcutaneous, ONCE PRN, Starting on Mendy 11/17/21 at 1015, Until Mendy 11/17/21 at 1015 $ Given 11/17/2021 10:15 AM CDT 10 mL See Comments midazolam (Versed) injection Intravenous, ONCE PRN, Starting on Mendy 11/17/21 at 1028, Until Mendy 11/17/21 at 1045 $ Given 11/17/2021 10:45 AM CDT 1 mg $ Given 11/17/2021 10:28 AM CDT 1 mg documented in this encounter Active and Recently Administered Medications Times are shown in CDT. Scheduled Medication Order 11/15/2021 11/16/2021 11/17/2021 0.9% NaCl injection 3 mL(Linked Group 1) 3 mL, Intracatheter, EVERY 8 HOURS, First dose on Mendy 11/17/21 at 0800, Until Discontinued, Flush peripheral IV catheter with 3 mL of normal saline every 8 hours., Pre-procedure (IR) 0800 (Due) PRN Medication Order 11/15/2021 11/16/2021 11/17/2021 0.9% NaCl injection 1-10 mL(Linked Group 1) 1-10 mL, Intracatheter, PRN, Other, peripheral line flush, Starting on Mendy 11/17/21 at 0754, Until 11/21/21 at 0911, Flush peripheral IV catheter with 1-10 mL of normal saline before and after medications and prn to clear blood from the line or to verify patency., Pre-procedure (IR) fentaNYL (PF) (Sublimaze) injection (COMPLETED) ONCE PRN, Starting on Mendy 11/17/21 at 1027, Until Mendy 11/17/21 at 1045 1027 ($ Given - Prov ider: Candace Whelan, RN)1045 ($ Given - Provider: Candace Whelan, RN) heparin 3,000 Units, nitroGLYCERIN (Tridil) 300 mcg, verapamil (Isoptin) 2.5 mg 4.1 mL (COMPLETED) ONCE PRN, Starting on Mendy 11/17/21 at 1015, Until Mendy 11/17/21 at 1015 1015 ($ Given - Prov ider: Valdo Arevalo MD - Comment: to sterile table) heparinized saline 2 units/ml infusion (COMPLETED) Other, CONTINUOUS PRN, Starting on Mendy 11/17/21 at 1015, Until Mendy 11/17/21 at 1015 1015 ($ New Bag/Syri nge - Provider: Valdo Arevalo MD - Comment: sterile table, flush bag, pressure bag) lidocaine (Xylocaine) 1 % injection (COMPLETED) Subcutaneous, ONCE PRN, Starting on Mendy 11/17/21 at 1015, Until Mendy 11/17/21 at 1015 1015 ($ Given - Prov ider: Valdo Arevalo MD - Comment: to sterile table) midazolam (Versed) injection (COMPLETED) Intravenous, ONCE PRN, Starting on Mendy 11/17/21 at 1028, Until Mendy 11/17/21 at 1045 1028 ($ Given - Prov ider: Candace Whelan, REJI)1045 ($ Given - Provider: Candace Whelan, RN) Linked Groups Order Group 1: SALINE LOCK, INSERT AND MAINTAIN (CANCELED) Routine, CONTINUOUS, Starting on Mendy 11/17/21 at 0800, Until Specified, Pre- procedure (IR), New collection And 0.9% NaCl injection 3 mLJump to med 3 mL, Intracatheter, EVERY 8 HOURS, First dose on Mendy 11/17/21 at 0800, Until Discontinued, Flush peripheral IV catheter with 3 mL of normal saline every 8 hours., Pre-procedure (IR) And 0.9% NaCl injection 1-10 mLJump to med 1-10 mL, Intracatheter, PRN, Other, peripheral line flush, Starting on Mendy 11/17/21 at 0754, Until 11/21/21 at 0911, Flush peripheral IV catheter with 1-10 mL of normal saline before and after medications and prn to clear blood from the line or to verify patency., Pre-procedure (IR) documented in this encounter Additional Health Concerns Infection Onset Date Last Indicated Resolved Time 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
--- OUTSIDE RECORDS SUMMARY | 2024-06-27 04:50 | XMS_ITS | Encounter Summary ---
Author Organization [facility] Address [address] [place] [address] Care Team Providers Care Sap Portal Developer Name Role Phone Unavailable Primary Care Provider Unavailabl e Encounter Details Date Type Department Care Team (Late st Contact Info) Description 01/02/2019 Orders Only [facility] - Orthopedics [address] [place] [address], [place] [phone] Maciel Greer MD [address] [place] [address] [place] [address] Other closed fracture of distal end of left radius with routine healing, subsequent encounter Social History Tobacco Use Types Packs/Day Years Used Date Smoking Tobacco: Former Cigarettes Smokeless Tobacco: Never Alcohol Use Standard Drinks/Week Comments Yes 0 (1 standard drink = 0.6 oz pur e alcohol) used EtOH today Sex and Gender Information Value Date Recorded Sex Assigned at Not on file Gender Identity Not on file Sexual Orientation Not on file documented as of this encounter Functional Status Functional Status Response Date of Assess ment Is person deaf or have serious hearing difficult y? No 10/17/2018 Is person blind or have serious difficulty seein g? No 10/17/2018 Does person have serious dif ficulty walking/climbing stairs? No 10/17/2018 Does person have difficulty dressing/bathing? No 10/17/2018 Does person have difficulty doing errands alone? No 10/17/2018 Cognitive Status Response Date of Assessm ent Does person have difficulty concentrating/remembering/making decisions? No 10/17/2018 documented as of this encounter Plan of Treatment Upcoming Encounters Date Type Department Care Team (Late st Contact Info) Description 08/25/2024 1:10 PM CDT Documentation [address] [phone] 08/25/2024 1:20 PM CDT Office Visit [address] [phone] Migue Reeder MD [address] [place] [address] [phone] documented as of this encounter Visit Diagnoses Diagnosis Other closed fracture of distal end of left radius with routine healing, subsequent encounter- Primary documented in this encounter
--- OUTSIDE RECORDS SUMMARY | 2024-06-27 04:50 | XMS_ITS | Encounter Summary ---
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 Name Role Phone Unavailable Primary Care Provider Unavailabl e Encounter Details Date Type Department Care Team (Latest Contact Info) Description 10/17/2018 5:58 PM CDT - 10/25/2018 10:45 AM CDT Hospital Encounter [address] [place] [address] [place] [address] [place] [address] [facility] Direct Discharge Disposition: Home or Self Care Social History Tobacco Use Types Packs/Day Years [...] No 10/17/2018 documented as of this encounter Medications at Time of Discharge Medication Sig Dispensed Refills Start Date End Date thiamine 100 MG Take 1 tablet by mouth once daily 10/18/2018 acetaminophen (TYLENOL) 325 MG tablet Take 3 tablets by mouth 3 times daily Maximum allowable Acetaminophen amount = 4 Grams (4000 mg) / 24 hours. 10/17/2018 08/25/2021 ARIPiprazole (ABILIFY) 10 MG tablet 0 10/25/2018 08/25/2021 artificial tears ophthalmic ointment Instill into both eyes every 8 hours 10/17/2018 08/25/2021 calcium carbonate (TUMS) 500 MG chew tablet Take 2 tablets by mouth daily with breakfast for 7 days 14 tablet 10/18/2018 10/25/2018 famotidine (PEPCID) 20 MG tablet 0 10/25/2018 08/25/2021 ferrous sulfate 325 (65 FE) MG tablet Take 1 tablet by mouth daily with breakfast 10/18/2018 08/25/2021 folic acid (FOLVITE) 1 MG tablet 1 tablet by Enteral Tube route once daily 10/18/2018 08/25/2021 guanFACINE (TENEX) 1 MG tablet Take 0.5 tablets by mouth 2 times daily 10/17/2018 08/25/2021 guanFACINE CR 24hr (INTUNIV) 1 MG tablet 0 10/25/2018 08/25/2021 haloperidol lactate (HALDOL) injection Inject 1 mL into muscle every 6 hours as needed for Agitation 10/17/2018 08/25/2021 lamoTRIgine (LAMICTAL) 25 MG tablet 0 10/25/2018 08/25/2021 magnesium oxide (MAG-OX) 400 MG tablet Take 1 tablet by mouth once daily for 7 days 10/18/2018 10/25/2018 melatonin 3 MG tablet Take 2 tablets by mouth at bedtime 10/17/2018 08/25/2021 multivitamin daily tablet Take 1 tablet by mouth once daily 10/18/2018 08/25/2021 oxyCODONE, immediate release, (ROXICODONE) 5 MG tablet Take 1 tablet by mouth every 4 hours as needed 12 tablet 10/17/2018 11/25/2018 polyethylene glycol 3350 (MIRALAX) packet Take 17 g by mouth once daily 10/18/2018 08/25/2021 documented as of this encounter Plan of Treatment Upcoming Encounters Date Type Department Care Team (Late st Contact Info) Description 08/25/2024 1:10 PM CDT Documentation [facility] Cancer [address] [place] [phone] 08/25/2024 1:20 PM CDT Office Visit [address] [place] [phone] Migue Reeder MD [address] [place] [address] [place] [phone] documented as of this encounter Procedures Procedure Name Priority Date/Time Associated Diagnosis Comments CBC W AUTO DIFFERENTIAL Routine 10/21/2018 3:59 AM CDT BASIC METABOLIC PANEL (CALCIUM TOTAL) Routine 10/21/2018 3:59 AM CDT URINE MICROSCOPIC ONLY REFLEX TO CULTURE Routine 10/18/2018 11:37 AM CDT CBC W AUTO DIFFERENTIAL Routine 10/18/2018 5:42 AM CDT COMPREHENSIVE METABOLIC PANEL Routine 10/18/2018 5:42 AM CDT documented in this encounter Results * (ABNORMAL) BASIC METABOLIC PANEL (CALCIUM TOTAL) (10/21/2018 3:59 AM CDT) Glucose 112(H) 74 - 106 mg/dL 10/21/2018 6:50 AM CDT [facility] Sodium 137 136 - 145 mmol/L 10/21/2018 6:50 AM CDT [facility] Potassium 3.9 3.5 - 5.1 mmol/L 10/21/2018 6:50 AM CDT [facility] Chloride 107 98 - 107 mmol/L 10/21/2018 6:50 AM CDT [facility] CO2 24 23 - 31 mmol/L 10/21/2018 6:50 AM CDT [facility] Calcium 8.8 8.4 - 10.2 mg/dL 10/21/2018 6:50 AM CDT [facility] Anion Gap 6(L) 8 - 16 mmol/L 10/21/2018 6:50 AM CDT [facility] BUN 6(L) 8.9 - 20.6 mg/dL 10/21/2018 6:50 AM CDT [facility] Creatinine 0.58(L) 0.73 - 1.18 mg/dL 10/21/2018 6:50 AM CDT [facility] eGFR by MDRD >60 >60 mL/min/1.7 3m2 10/21/2018 6:50 AM CDT [facility] eGFR by MDRD >60 >60 mL/min/1.7 3m2 10/21/2018 6:50 AM CDT [facility] Blood BLOOD SPECIMEN / Unknown Lab Venipuncture / Unknown 10/21/2018 3:59 AM CDT 10/21/2018 6:15 AM CDT [facility] - 10/21/2018 6:50 AM CDT Attention clinician: BUN Reference Range has changed. Cordelia Ramey DRESS CAP MAKER-WILDLIFE SCIENCE PROFESSOR LAB - CHEMISTR Y ORDERABLES [facility] [address] [phone] * (ABNORMAL) CBC W AUTO DIFFERENTIAL (10/21/2018 3:59 AM CDT) WBC 6.0 4.4 - 10.7 x10E9/L 10/21/2018 6:27 AM CDT [facility] WBC Corrected x10E9/L 10/21/2018 6:27 AM CDT [facility] RBC 4.00 3.80 - 5.40 x10E12/L 10/21/2018 6:27 AM CDT [facility] Hemoglobin 11.2(L) 12.0 - 17.6 gm/dL 10/21/2018 6:27 AM CDT [facility] Hematocrit 36.1 35.2 - 51.7 % 10/21/2018 6:27 AM CDT [facility] MCV 90.3 80.7 - 98.3 fl 10/21/2018 6:27 AM CDT [facility] MCH 28.0 26.7 - 34.0 pg 10/21/2018 6:27 AM [facility] MCHC 31.0 30.8 - 35.9 gm/dL 10/21/2018 6:27 AM [facility] Platelet Count 340 153 - 416 x10E9/L 10/21/2018 6:27 AM [facility] RDW-CV 21.4(H) 12.1 - 14.9 % 10/21/2018 6:27 AM [facility] MPV 9.6 9.4 - 12.9 fl 10/21/2018 6:27 AM [facility] Neutrophils % 52.6 44.0 - 73.0 % 10/21/2018 6:27 AM [facility] Lymphocytes % 27.3 20.0 - 43.0 % 10/21/2018 6:27 AM [facility] Monocytes % 14.6(H) 5.0 - 13.0 % 10/21/2018 6:27 AM [facility] Eosinophils % 3.5 0.0 - 6.0 % 10/21/2018 6:27 AM [facility] Basophils % 1.8 0.0 - 2.0 % 10/21/2018 6:27 AM [facility] Immature Granulocytes 0.2 0 - 1 % 10/21/2018 6:27 AM [facility] Neutrophil Absolute 3.16 2.01 - 7.14 x10E9/L 10/21/2018 6:27 AM [facility] Lymphocytes Absolute 1.64 1.07 - 3.94 x10E9/L 10/21/2018 6:27 AM [facility] Monocytes Absolute 0.88 0.26 - 1.07 x10E9/L 10/21/2018 6:27 AM [facility] Eosinophils Absolute 0.21 0 - 0.47 x10E9/L 10/21/2018 6:27 AM [facility] Basophils Absolute 0.11(H) 0 - 0.08 x10E9/L 10/21/2018 6:27 AM [facility] Immature Granulocytes Absolute 0.01 0.00 - 0.06 x10E9/L 10/21/2018 6:27 AM [facility] nRBC Auto 0 /100 WBC 10/21/2018 6:27 AM CDT [facility] Blood BLOOD SPECIMEN / Unknown Lab Venipuncture / Unknown 10/21/2018 3:59 AM CDT 10/21/2018 6:15 AM CDT Cord[facility]ame[facility] - HEMATOLO GY ORDERABLES Performing Organization Address [facility] de Phone Number [facility] [address] [place] [address] [phone] * URINE MICROSCOPIC ONLY REFLEX TO CULTURE (10/18/2018 11:37 AM CDT) Reflex Status Culture not indicated 10/18/2018 12:28 PM CDT [facility] RBC UA 0-2 None Seen, 0-2, 3-5 # /hpf 10/18/2018 12:28 PM CDT [facility] WBC UA 0-5 None Seen, 0-5 # /hpf 10/18/2018 12:28 PM CDT [facility] Bacteria UA None Seen None Seen 10/18/2018 12:28 PM CDT [facility] Squamous Epithelial Cells None Seen None Seen, 0-2, 3-5 /hpf 10/18/2018 12:28 PM CDT [facility] Urine URINE SPECIMEN OBTAINED BY CLEAN CATCH PROCEDURE / Unknown Collection / Unknown 10/18/2018 11:37 AM CDT 10/18/2018 12:01 PM CDT Narrative [facility] - 10/18/2018 12:28 PM CDT Cordelia Ramey [facility] IS ORDERABLES Performing Organization Address [facility] Co de Phone Number [facility] [address] [place] [address] [phone] * (ABNORMAL) COMPREHENSIVE METABOLIC PANEL (10/18/2018 5:42 AM CDT) Glucose 89 74 - 106 mg/dL 10/18/2018 6:36 AM CDT [facility] Sodium 137 136 - 145 mmol/L 10/18/2018 6:36 AM CDT [facility] Potassium 3.8 3.5 - 5.1 mmol/L 10/18/2018 6:36 AM CDT [facility] Chloride 105 98 - 107 mmol/L 10/18/2018 6:36 AM CDT [facility] CO2 26 23 - 31 mmol/L 10/18/2018 6:36 AM CDT [facility] Calcium 8.7 8.4 - 10.2 mg/dL 10/18/2018 6:36 AM CDT [facility] Anion Gap 6(L) 8 - 16 mmol/L 10/18/2018 6:36 AM CDT [facility] BUN 7(L) 8.9 - 20.6 mg/dL 10/18/2018 6:36 AM CDT [facility] Creatinine 0.53(L) 0.73 - 1.18 mg/dL 10/18/2018 6:36 AM CDT [facility] Alkaline Phosphatase 107 40 - 150 U/L 10/18/2018 6:36 AM CDT [facility] ALT 20 13 - 61 U/L 10/18/2018 6:36 AM CDT [facility] AST 84(H) 5 - 34 U/L 10/18/2018 6:36 AM CDT [facility] Protein Total 6.8 6.4 - 8.3 gm/dL 10/18/2018 6:36 AM CDT [facility] Albumin 2.6(L) 3.5 - 5.2 gm/dL 10/18/2018 6:36 AM CDT [facility] Bilirubin Total 1.1 0.2 - 1.2 mg/dL 10/18/2018 6:36 AM CDT [facility] eGFR by MDRD >60 >60 mL/min/1.7 3m2 10/18/2018 6:36 AM CDT [facility] eGFR by MDRD >60 >60 mL/min/1.7 3m2 10/18/2018 6:36 AM CDT [facility] Blood BLOOD SPECIMEN / Unknown Lab Venipuncture / Unknown 10/18/2018 5:42 AM CDT 10/18/2018 5:49 AM CDT [facility] - 10/18/2018 6:36 AM CDT Attention clinician: BUN Reference Range has changed. Usmanmagan Avelarelda DRESS CAP MAKER-WILDLIFE SCIENCE PROFESSOR LAB - CHEMISTR Y ORDERABLES [facility] [address] [place] [address] * (ABNORMAL) CBC W AUTO DIFFERENTIAL (10/18/2018 5:42 AM CDT) [facility] WBC 5.9 4.4 - 10.7 x10E9/L 10/18/2018 6:03 AM CDT [facility] WBC Corrected x10E9/L 10/18/2018 6:03 AM CDT [facility] RBC 3.60(L) 3.80 - 5.40 x10E12/L 10/18/2018 6:03 AM CDT [facility] Hemoglobin 10.0(L) 12.0 - 17.6 gm/dL 10/18/2018 6:03 AM CDT [facility] Hematocrit 32.8(L) 35.2 - 51.7 % 10/18/2018 6:03 AM CDT [facility] MCV 91.1 80.7 - 98.3 fl 10/18/2018 6:03 AM CDT [facility] MCH 27.8 26.7 - 34.0 pg 10/18/2018 6:03 AM CDT [facility] MCHC 30.5(L) 30.8 - 35.9 gm/dL 10/18/2018 6:03 AM CDT [facility] Platelet Count 295 153 - 416 x10E9/L 10/18/2018 6:03 AM T [facility] RDW-CV 21.5(H) 12.1 - 14.9 % 10/18/2018 6:03 AM CDT [facility] MPV 9.6 9.4 - 12.9 fl 10/18/2018 6:03 AM CDT [facility] Neutrophils % 53.5 44.0 - 73.0 % 10/18/2018 6:03 AM CDT [facility] Lymphocytes % 25.4 20.0 - 43.0 % 10/18/2018 6:03 AM CDT [facility] Monocytes % 13.8(H) 5.0 - 13.0 % 10/18/2018 6:03 AM CDT [facility] Eosinophils % 4.9 0.0 - 6.0 % 10/18/2018 6:03 AM CDT [facility] Basophils % 1.7 0.0 - 2.0 % 10/18/2018 6:03 AM CDT [facility] Immature Granulocytes 0.7 0 - 1 % 10/18/2018 6:03 AM CDT [facility] Neutrophil Absolute 3.13 2.01 - 7.14 x10E9/L 10/18/2018 6:03 AM CDT [facility] Lymphocytes Absolute 1.49 1.07 - 3.94 x10E9/L 10/18/2018 6:03 AM CDT [facility] Monocytes Absolute 0.81 0.26 - 1.07 x10E9/L 10/18/2018 6:03 AM CDT [facility] Eosinophils Absolute 0.29 0 - 0.47 x10E9/L 10/18/2018 6:03 AM CDT [facility] Basophils Absolute 0.10(H) 0 - 0.08 x10E9/L 10/18/2018 6:03 AM CDT [facility] Immature Granulocytes Absolute 0.04 0.00 - 0.06 x10E9/L 10/18/2018 6:03 AM CDT [facility] nRBC Auto 0 /100 WBC 10/18/2018 6:03 AM T [facility] Blood BLOOD SPECIMEN / Unknown Lab Venipuncture / Unknown 10/18/2018 5:42 AM CDT 10/18/2018 5:49 AM CDT Cordelia Ramey DRESS CAP MAKER-WILDLIFE SCIENCE PROFESSOR LAB - HEMATOLO GY ORDERABLES [facility] [address] [place] [address] documented in this encounter Visit Diagnoses Not on filedocumented in this encounter
--- OUTSIDE RECORDS SUMMARY | 2024-06-27 04:50 | XMS_ITS | Encounter Summary ---
Author Organization [facility] Address [address] [address] Care Team Providers Care Bilingual Call Center Representative Name Role Phone Unavailable Primary Care Provider Unavailabl e Reason for Visit * Reason Comments Drug Overdose BIB air evac from os [facility], pt was seen at [facility] for SI attempt with OD on a whole bottle of heroin, pt arrive to osh alert and oriented around 1230 post ingestion and then became unresponsive sometime after requiring intubation, pt found to have brain bleed, unknown lkw * Auth/Cert Specialty Diagnoses / Procedures Referred By Hoang t Referred To Contact Referral ID Status Reason Start Date Expiration Date Visits Re quested Visits Authorized [id number] 1 1 Encounter Details Date Type Department Care Team (Latest Contact Info) Description 08/24/2021 6:40 PM CASINO HOST - 09/13/2021 7:17 PM CDT Hospital Encounter [facility] [address] [place] [id number] Thien Augustin MD [address] [place] [address] Gabriele Riley MD [address] [facility] [address] [place] [address] Olegario Villagomez MD [address] [place] [address] Valdo Arevalo MD Need new address Robbin Hook MD Buckhold, Fred R III, MD [facility] [place] [address] Neurology Discharge Disposition: Nursing Home Facility Social History Tobacco Use Types Packs/Day Years [...] Sign Reading Time Taken Comments Blood Pressure 129/72 09/13/2021 5:49 AM CDT Pulse 83 09/13/2021 5:49 AM CDT Temperature 36.9 ??C (98.4 ??F) 09/13/2021 5:49 AM CD T Respiratory Rate 16 09/13/2021 5:49 AM CDT Oxygen Saturation 98% 09/13/2021 5:49 AM CDT Inhaled Oxygen Concentration 25% 08/30/2021 1 1:00 AM CDT Weight 72.7 kg (160 lb 3.2 oz) 08/29/2021 5:00 A M CDT Height 182.9 cm (6') 08/25/2021 8:00 AM CASINO HOST Body Mass Index 21.73 08/25/2021 8:00 AM CASINO HOST documented in this encounter Functional Status Functional [...] Yes 09/13/2021 documented as of this encounter Discharge Summaries * Bob Aponte III, MD - 09/13/2021 3:37 PM CDT Physician Discharge Summary Patient Name: Chester Dubose Jr. Date of : 1970 Admit date: 08/24/2021 Discharge date: 09/13/2021 Admitting Physician: Gabriele Riley MD Attending Physician: Bob Aponte III, MD Discharge Physician: Admission Diagnosis: Intentional overdose, intraparenchymal head bleed Past Medical History Past Medical History: Diagnosis Date ??? Anxiety ??? Bipolar 1 disorder 10/07/2018 ??? Cirrhosis ??? COPD (chronic obstructive pulmonary disease) ??? Delirium tremens ??? Depression ??? Depression ??? Substance abuse ??? Suicide attempt Resolved Diagnoses [place] coma scale total score 4 or 5 Endotracheally intubated Dysphagia Acute respiratory failure with hypoxia Leukocytosis (leucocytosis) Discharge Diagnoses Intracerebral bleed (Principal) Bipolar 1 disorder Methamphetamine intoxication Seizures Intentional drug overdose Thrombocytopenia, secondary Alcoholic cirrhosis of liver without ascites Coagulopathy Suicide attempt Diagnostic Studies radiology: MRI: 1.Redemonstration of evolving early subacute hematoma involving the left Treatments See hospital course Procedures See hospital course Consults Neurology Psychiatry Hospital Course Chester Dubose Jr. is a 51 year old male with a history of of bipolar disorder, polysubstance abuse, and alcoholic cirrhosis who was transferred from [facility] on 08/24 for management of intraparenchymal hemorrhage after ingestion a bottle of crystal meth in a suicide attempt. 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 Transferred to [facility], put on an nicardipine drip for blood pressure, and repeat imaging confirmed bleed with no evidence of underlying mass. He did develop a pneumonia while in ICU, sputum MRSA positive, treated for seven days; extubated 08/30. He was evaluated by psychiatry for a history of bipolar with some remote history of psychosis. He had some agitation treated with prn haldol but that improved. He was not deemed a suicidal risk and he restarted his home quetiapine. He never had evidence of hepatic encephalopathy and his lactulose and rifaximin was continued. 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 Condition at discharge: good Disposition: termination clerk care facility Code Status At Discharge Full Code Patient Instructions Current Discharge Medication List START taking these medications Instructions Authorizing Provider lacosamide 100 MG tablet Commonly known as: Vimpat Take 1 (one) tablet by mouth 2 times daily Bob Aponte III, MD melatonin 3 MG tablet Take 2 (two) tablets by mouth at bedtime Bob Aponte III, MD QUEtiapine 100 MG tablet Commonly known as: SEROquel Take 1 (one) tablet by mouth 2 times daily Bob Aponte III, MD CONTINUE taking these medications which have NOT CHANGED Instructions Authorizing Provider lactulose 10 GM/15ML solution Commonly known as: Chronulac;Enulose Take 15 mL by mouth 3 times daily tamsulosin 0.4 MG capsule Commonly known as: Flomax Take 0.4 mg by mouth once daily thiamine 100 MG tablet Commonly known as: Vitamin B-1 Take 1 tablet by mouth once daily Herbert Spencer MD Xifaxan 550 MG tablet Generic drug: rifAXIMin Take 550 mg by mouth 2 times daily STOP taking these medications FOLATE PO gabapentin 100 MG capsule Commonly known as: Neurontin MULTIVITAMIN ADULT PO pramipexole 0.25 MG tablet Commonly known as: Mirapex Discharge Procedure Orders Follow up with provider Order Specific Question Answer Comments Follow Up Instructions: Your follow up with the stroke clinic is on October 13 at 11am. Please arrive 15 minutes early. If you need to change this appointment, please call [phone]. Discharge time: greater than 30 minutes. CC: Methamphetamine ingestion documented in this encounter Medications at Time [...] as of this encounter Progress Notes * Jerri Thomas RN - 09/13/2021 7:13 PM CDT Problem: Seizures Goal: Seizures are under control or absent 09/13/20211912 by Jerri Thomas RN Outcome: Adequate for Discharge 09/13/2021 1241 by Jerri Thomas RN Outcome: Progressing Problem: SEIZURE EVENT MONITORING Goal: To record an episode to determine whether or not the episode is a seizure. Outcome: Adequate for Discharge Problem: Nutrient: Inadequate protein-energy intake Goal: Total intake will meet estimated nutrient needs 09/13/20211912 by Jerri Thomas RN Outcome: Adequate for Discharge 09/13/2021 1241 by Jerri Thomas RN Outcome: Progressing Problem: Neurological Deficit Goal: Neurological status is stable or improving 09/13/20211912 by Jerri Thomas RN Outcome: Adequate for Discharge 09/13/2021 1241 by Jerri Thomas RN Outcome: Progressing Problem: Hemodynamic Status/Cardiac Output Goal: Patient has stable vital signs and fluid balance Outcome: Adequate for Discharge Problem: Oxygenation/Respiratory Function Goal: Respiratory rate/effort will be within specified limits Outcome: Adequate for Discharge Problem: Mobility Goal: Patient's mobility/activity will be maintained as optimum level for age, diagnosis and physical limitations 09/13/20211912 by Jerri Thomas RN Outcome: Adequate for Discharge 09/13/2021 1241 by Jerri Thomas RN Outcome: Progressing Goal: Continuum of care needs are further met through referral to outpatient services when appropriate. 09/13/20211912 by Jerri Thomas RN Outcome: Adequate for Discharge 09/13/2021 1241 by Jerri Thomas RN Outcome: Progressing Goal: Patient reports the ability to perform Activities of Daily Living. 09/13/20211912 by Jerri Thomas RN Outcome: Adequate for Discharge 09/13/2021 1241 by Jerri Thomas RN Outcome: Progressing Problem: Communication Impairment/Dysarthria Goal: Ability to express needs and understand communication 09/13/20211912 by Jerri Thomas RN Outcome: Adequate for Discharge 09/13/2021 1241 by Jerri Thomas RN Outcome: Progressing Problem: Nutrition Goal: Nutritional status is improving 09/13/20211912 by Jerri Thomas RN Outcome: Adequate for Discharge 09/13/2021 1241 by Jerri Thomas RN Outcome: Progressing Problem: Aspiration Precautions Goal: Patient's risk of aspiration is minimized Outcome: Adequate for Discharge Problem: Glycemic Control Goal: Clinical indication of glycemia balance is achieved Outcome: Adequate for Discharge Problem: Knowledge Deficit,Education,Discharge Plan Goal: The patient/family will understand cerebrovascular disease and its symptoms, treatment and management Outcome: Adequate for Discharge Problem: Pain/Discomfort Goal: Patient exhibits reduced pain/discomfort as evidenced by pain scores Outcome: Adequate for Discharge Goal: Patient uses pharmacological and non-pharmacological pain management strategies. Outcome: Adequate for Discharge Goal: Patient verbalizes acceptable level of pain relief and ability to engage in desired activity. Outcome: Adequate for Discharge Problem: Fall Risk Goal: Fall risk and fall related injury risk are minimized (interventions related to the fall risk can be found in the flowsheet documentation) 09/13/20211912 by Jerri Thomas RN Outcome: Adequate for Discharge 09/13/2021 1241 by Jerri Thomas RN Outcome: Progressing Problem: Swallowing Goal: LTG - Patient will demonstrate safe swallowing Intervention/techniques Outcome: Adequate for Discharge Goal: LTG - Patient will tolerate the least restrictive diet consistency to allow for safe consumption of daily meals Outcome: Adequate for Discharge Problem: Cognitive/Linguistics Goal: STG - Patient will participate in further assessment of cognitive- linguistic skills Outcome: Adequate for Discharge Problem: Mobility Goal: LTG - Patient will demonstrate safe mobility requirements. Outcome: Adequate for Discharge Problem: Balance Goal: LTG - Patient will demonstrate Intervention to enhance balance for safe completion of daily activities Outcome: Adequate for Discharge * Mendoza Niño MSW - 09/13/2021 3:25 PM CDT Facility Transfer Note Level of Care: Actual level of care at discharge: Senior Care - Skilled Facility Facility Name: (include name of person confirming admission): Actual discharge provider: [facility] Made Aware of Special Needs (if applicable): Yes RN Call Report to:[phone] Fax D/C Orders to:[phone] Transportation (company and number): [employer] Certificate of Medical Necessity rationale: Date/time of transfer: 09/13/2021 @ 6:00PM Accepting MD and contact #: Dr. 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 Outpatient medications were clarified with pharmacy records. Please note all medications may NOT have beenclarified pending available information at the time. Current Updated Home Medications: Medications Prior to Admission Medication Sig Action Taken Folic Acid (FOLATE PO) Take 1 mg by mouth once daily OTC gabapentin (NEURONTIN) 100 MG capsule Take 100 mg by mouth 3 times daily Likely not taking recently- Rx last filled #90 capsules for 30-day supply on 04/06/21 lactulose (CHRONULAC;ENULOSE) 10 GM/15ML solution Take 15 mL by mouth 3 times daily Likely not taking recently - Rx last filled #900 mL for 30-day supply on 01/03/21 Multiple Vitamin (MULTIVITAMIN ADULT PO) Take 1 tablet by mouth once daily OTC pramipexole (MIRAPEX) 0.25 MG tablet Take 0.25 mg by mouth once daily Rx last filled #90 tablets for 90-day supply on 07/04/21 tamsulosin (FLOMAX) 0.4 MG capsule Take 0.4 mg by mouth once daily Rx last filled #30 capsules for 30-day supply on 07/25/21 thiamine 100 MG Take 1 tablet by mouth once daily OTC XIFAXAN 550 MG tablet Take 550 mg by mouth 2 times daily Likely not taking recently - Rx last filled #60 tablets for 30-day supply on 07/04/21 Please note that this only serves as an updated medication list and all medical teams should continue to manage the patient as deemed most appropriate. If any questions about the home medication listarise please do not hesitate to contact the [facility] pharmacy dept ([phone]). Thank you. Assessment Completed by: Brenna Casanova PharmD 09/13/2021 2:53 PM * Ashleigh Jefferson, OT - 09/13/2021 2:26 PM CDT [facility] Occupational Therapy Progress Note Patient: Chester Dubose . Med Record Number: [id number] Date of : 1970 Age: [age] year old Face Mask: YES (N95 + DROPLET MASK COVERING + EYE PROTECTION + GLOVES + GOWN FOR CONTACT) Tech: NO Discharge Recommendation: Patient will benefit from multidisciplinary inpatient therapies. Precautions: FALLS SAFETY Subjective: You know she has my money At start of therapy session, patient found in bed and with no alarm. Pain: Patient has 0/10 pain in body Follow-up for pain: No follow-up for pain indicated and patient agreed to proceed with treatment Activities of Daily Living Feeding:NT Grooming/Bathing: Stand By Assist Upper Extremity Dressing: not tested Lower Extremity Dressing: Independent--socks Toileting/Transfers: not tested Mobility: Assist device: none Rolling: Independent Supine to/from Sit:Independent Sit to/from Stand: Independent Bed to/from Chair: Independent Splint Issued/Checked: none Splint Check Completed: N/A Balance: Static Sitting: good Dynamic Sitting: good Static Standing: good Dynamic Standing: good Activity tolerance: fair plus Current Modified [place] Score: 4 Cognitive/Perceptual: A&Ox3; pt is tangential and easily distracted. Poor attention. Followed 100% of simpel 1-step commands w/ increased time. Decreased insight and safety awareness. Treatment/Therapeutic Exercise: Treatment session this date focused on?? ADL training Cognitive retraining Functional transfer training Endurance training Bed mobility Safety awareness ?? EDUCATION: While performing??mobility and self care,??Patient??was instructed in: ?? Functional mobility training/weight bearing status, Cognitive retraining, Safety awareness/fall precaution and Self care training ?? Presented to patient who demonstrates??Questionable??understanding of instructions given. ? Equipment Issued:??none ? Update Treatment Plan/Goals :??continue plan of care ?? Short Term Goals: Patient will increason orientation to?person, place, time and situation Patient will perform eating?In chair and Independently Patient will perform grooming?Standing at sink and With min assist Patient will perform lower extremity dressing?At edge of bed and Independently Patient will perform bed to chair?With min assist ?? Fdc Goal:Patient to discharge to appropriate next level of inpatient care ?? If patient is discharged from the facility, this note serves as a discharge note if further occupational therapy visits did not occur. ?? Following therapy session, patient left??in bed, with call light within reach and with RN,??JERRI aware. ?? * Jerri Thomas RN - 09/13/2021 12:42 PM CDT Problem: Seizures Goal: Seizures are under control or absent Outcome: Progressing Problem: Nutrient: Inadequate protein-energy intake Goal: Total intake will meet estimated nutrient needs Outcome: Progressing Problem: Neurological Deficit Goal: Neurological status is stable or improving Outcome: Progressing Problem: Mobility Goal: Patient's mobility/activity will be maintained as optimum level for age, diagnosis and physical limitations Outcome: Progressing Goal: Continuum of care needs are further met through referral to outpatient services when appropriate. Outcome: Progressing Goal: Patient reports the ability to perform Activities of Daily Living. Outcome: Progressing Problem: Communication Impairment/Dysarthria Goal: Ability to express needs and understand communication Outcome: Progressing Problem: Nutrition Goal: Nutritional status is improving Outcome: Progressing Problem: Fall Risk Goal: Fall risk and fall related injury risk are minimized (interventions related to the fall risk can be found in the flowsheet documentation) Outcome: Progressing * Nuria Martines, NILDA/LD - 09/13/2021 12:32 PM CDT Nutrition Re-Assessment Nutrition Plan: Added Ensure Enlive tid, provides 350 kcal and 20 g Protein each Will order update in weight Recommendations to Physician: None at current encounter Comments: Reassessment due: PO: Good at 75%. Pt wanting more food. Added Ensure. Labs: Noted. Weight: Stable x1 week. GI: Last BM 09/11/2021. Assessment: Med/Surg History and Clinical Diagnoses: Left Partieto-Occiptial IPH, Polysubstance Abuse, ETOH Cirrhosis, Lung nodule Diet order accuracy Current diet order: Regular Current supplement order: Ensure tid Added Current tube feeding order: TF Colt'd Nutrition recommendation: agree with current nutrition order P.O.Intake for the past 48 hrs:% Meal Taken Av % Min: 75 % Max: 75 % Supplement Consumed (mL) last 48 hrs None Food Allergies: No known food allergies GI Concerns: None Chewing/Swallowing: None Pain affecting intake: No Admission weight: Weight: 158 lb 9.6 oz (71.9 kg) (08/24/21 1859) Recent Weights/Methods 10/02/2018 1601 10/28/2018 1229 11/25/2018 1042 08/24/2021 1859 08/27/2021 0400 08/28/2021 0400 08/29/2021 0500 Weight: 190 lb (86.2 kg) 190 lb (86.2 kg) 190 lb (86.2 kg) 158 lb 9.6 oz (71.9 kg) 157 lb 9.6 oz (71.5 kg) 157 lb 9.6 oz (71.5 kg) 160 lb 3.2 oz (72.7 kg) Weight Method (Utilize Scales): -- -- -- -- Bedscale Bedscale Bedscale BMI: Body mass index is 21.73 kg/m??. BMI Range: Normal Height: 6' (182.9 cm) IBW/lb (Calculated) Male: 178 , Laboratory values reviewed. Recent Labs Component Name 09/13/21 0753 09/08/21 0620 09/07/21 1142 08/28/21 0013 08/27/21 1043 08/25/21 0420 08/24/21 1936 10/21/18 0359 10/18/18 0542 10/18/18 0542 10/17/18 0400 10/12/18 2359 10/12/18 0006 BUN 8 10 10 - 18 - 10 6* - 7* - - 6* CREATININE 0.55* 0.70* 0.60* - 0.66* - 0.66* 0.58* - 0.53* - - 0.4* NA 142 136 135* - 140 - 134* - - - - - 138 POTASSIUM 3.7 4.2 4.1 - 3.9 - 3.9 3.9 - 3.8 - - 3.0* CL 109* 104 104 - 109* - 104 - - - - - 109* CO2 24 25 - 24 - - 22 GLUCOSE 93 102 176* - 133* - 110 112* - 89 - - 108 CALCIUM 8.0* 7.8* 7.9* - 7.9* - 8.0* 8.8 - 8.7 - - 7.3* PROT - - - - 6.2 - 5.9* - - - - - 5.0* ALB - - - - 2.6* - 2.7* - - - - - 1.6* TBILI - - - - 1.4* - 1.5* - - - - - 2.8* ALKPHOS - - - - 100 - 116 - - 107 - - 103 ALT - - - - 37 - 46 - - 20 - - 26 AST - - - - 50* - 79* - - 84* - - 105* ANIONGAP 13 11 12 - 12 - 12 6* - 6* - - 10 BCR 15 14 17 - 27* - 15 - - - - - 15 OSMOLALITY 292 281 283 - 294 - 278 - - - - - 284 AGRATIO - - - - 0.7* - 0.8* - - - - - 0.5* EGFR >90 >90 >90 - >90 - >90 >60 - >60 - - >60 EGFRAFR - - - - - - - >60 - >60 - - - - = values in this interval not displayed. Medications noted. Current Facility-Administered Medications Medication ??? 0.9% NaCl injection 3 mL And ??? 0.9% NaCl injection 1-10 mL ??? acetaminophen (Tylenol) tablet 500 mg ??? haloperidol (Haldol) tablet 5 mg Or ??? haloperidol lactate (Haldol) injection 5 mg ??? heparin injection 5,000 Units ??? lacosamide (Vimpat) tablet 100 mg ??? lactulose (Chronulac) solution 10 g ??? melatonin tablet 6 mg ??? QUEtiapine (SEROquel) tablet 100 mg ??? rifAXIMin (Xifaxan) tablet 550 mg ??? tamsulosin (Flomax) capsule 0.4 mg Skin/Wound: exceptions per RN Estimated Energy Needs: KCAL: 2100 - 2200 kcal = 30 kcal/kg Protein (g): 1.5 g of PRO/kg = 105 - 110 g of PRO/d Fluid (ml):1 ml/kcal Needs based on: Kcal/kg- (Comment) (ABW = 72.7kg) Recommended Access Route: PO Education needed: Stroke Nutrition Therapy Education Provided: Not appropriate (AMS, vent) Nutrition Care Process (1) Nutrition Diagnostic Statement: Inadequate protein-energy intake related to:: decreased ability to consume or tolerate adequate food and/or fluids due to illness as evidenced by:: estimated intake insufficient to meet requirements Nutrition Diagnostic Statement Progress: Nutrition problem resolved Nutrition Intervention: Meals and snacks:;Medical Food Supplements: Monitoring: PO intake, Weight, Labs, GI, etc. Evaluation: Nutrition Goal: Total intake will meet estimated nutrient needs Nutrition Goal Timeframe: Throughout stay Nutrition Goal Progress: Progressing toward goal * Bob Aponte III, MD - 09/13/2021 8:29 AM CDT Hospitalist Progress Note 09/13/2021 Name: Chester Dubose Jr. Date of : 1970 Room: [facility] Hospital day: 20 Interval history/Subjective: Feels well. Feels speech is clearer. Eating well, wants more food. Denies f/c. Medications: ??? 0.9% NaCl 3 mL Intracatheter q8h ??? heparin 5,000 Units Subcutaneous q8h ??? lacosamide 100 mg Oral BID ??? lactulose 10 g Oral BID ??? melatonin 6 mg Oral AT BEDTIME ??? QUEtiapine 100 mg Oral BID ??? rifAXIMin 550 mg Oral BID ??? tamsulosin 0.4 mg Oral QDAY ??? SALINE LOCK, INSERT AND MAINTAIN AND 0.9% NaCl AND 0.9% NaCl ??? acetaminophen ??? haloperidol OR haloperidol lactate OBJECTIVE: Physical Exam: Temp: [98.4 ??F (36.9 ??C)-98.6 ??F (37 ??C)] 98.4 ??F (36.9 ??C) Pulse: [83-93] 83 Resp: [16-20] 16 BP: (123-129)/(66-72) 129/72 General: Alert, cooperative, in NAD Cardio: RRR no m/g/r, S1 and S2 appreciated, no JVD Respiratory: Lungs CTA B/L Abdomen: Abdomen soft nt/nd with normal bs. Abdomen protuberant Extremities: No LE edema, Skin: No rash or lesions Neuro: Ambulating on his own. Slight slurring of speech, mildly tangential. Labs: CBC: Recent Labs Component Name 09/13/21 0753 09/08/21 0620 09/06/21 0146 WBC 4.8 4.5 9.2 HGB 10.4* 11.4* 11.0* ASSESSMENT: #Left??Partieto-Occiptial IPH Doing well, no further treatment needed. Needs repeat OP MRI in a few months. Avoid antiplatelets/anticoag BP controlled (SBP < 140 goal) # Active SI, resolved halodol for agitation and psychosis as per psych (has not needed for 3 days at least). ?? # Seizure Activity Provoked 2/2 drug use; continue??Vimpat 100 mg BID ?? #Polysubstance Abuse #Suicidial Ideation #Bipolar Disorder ?? #Alcholic Cirrhosis with evidence portal htn Needs outpatient hepatology f/u. Continue lactulose/rifaximin - Home medications: lactulose, rifaximin # Lung nodule -3 mm; needs f/u Bob Aponte III, MD Department of Internal Medicine * MiladysCristal linda RN - 09/12/2021 8:41 PM CDT Problem: Seizures Goal: Seizures are under control or absent Outcome: Progressing Problem: SEIZURE EVENT MONITORING Goal: To record an episode to determine whether or not the episode is a seizure. Outcome: Progressing Problem: Nutrient: Inadequate protein-energy intake Goal: Total intake will meet estimated nutrient needs Outcome: Progressing Problem: Neurological Deficit Goal: Neurological status is stable or improving Outcome: Progressing Problem: Hemodynamic Status/Cardiac Output Goal: Patient has stable vital signs and fluid balance Outcome: Progressing Problem: Oxygenation/Respiratory Function Goal: Respiratory rate/effort will be within specified limits Outcome: Progressing Problem: Mobility Goal: Patient's mobility/activity will be maintained as optimum level for age, diagnosis and physical limitations Outcome: Progressing Goal: Continuum of care needs are further met through referral to outpatient services when appropriate. Outcome: Progressing Goal: Patient reports the ability to perform Activities of Daily Living. Outcome: Progressing Problem: Communication Impairment/Dysarthria Goal: Ability to express needs and understand communication Outcome: Progressing Problem: Nutrition Goal: Nutritional status is improving Outcome: Progressing Problem: Aspiration Precautions Goal: Patient's risk of aspiration is minimized Outcome: Progressing Problem: Glycemic Control Goal: Clinical indication of glycemia balance is achieved Outcome: Progressing Problem: Knowledge Deficit,Education,Discharge Plan Goal: The patient/family will understand cerebrovascular disease and its symptoms, treatment and management Outcome: Progressing Problem: Pain/Discomfort Goal: Patient exhibits reduced pain/discomfort as evidenced by pain scores Outcome: Progressing Goal: Patient uses pharmacological and non-pharmacological pain management strategies. Outcome: Progressing Goal: Patient verbalizes acceptable level of pain relief and ability to engage in desired activity. Outcome: Progressing Problem: Fall Risk Goal: Fall risk and fall related injury risk are minimized (interventions related to the fall risk can be found in the flowsheet documentation) Outcome: Progressing Problem: Swallowing Goal: LTG - Patient will demonstrate safe swallowing Intervention/techniques Outcome: Progressing Goal: LTG - Patient will tolerate the least restrictive diet consistency to allow for safe consumption of daily meals Outcome: Progressing Problem: Cognitive/Linguistics Goal: STG - Patient will participate in further assessment of cognitive- linguistic skills Outcome: Progressing Problem: Mobility Goal: LTG - Patient will demonstrate safe mobility requirements. Outcome: Progressing Problem: Balance Goal: LTG - Patient will demonstrate Intervention to enhance balance for safe completion of daily activities Outcome: Progressing * Ashleigh Jefferson OT - 09/12/2021 2:55 PM CDT [facility] Physical Medicine and Rehabilitation Occupational Therapy Progress Note Patient: Chester Dubose Jr. Med Record Number: [id number] Date of : 1970 Age: [age] year old Face Mask: YES (N95 + DROPLET MASK COVERING + EYE PROTECTION + GLOVES) Tech: NO Discharge Recommendation: Patient will benefit from multidisciplinary inpatient therapies. Precautions: FALLS SAFETY Subjective: I feel tired At start of therapy session, patient found in bed and with no alarm. Pain: Patient has 0/10 pain in body Follow-up for pain: No follow-up for pain indicated and patient agreed to proceed with treatment Activities of Daily Living Feeding:NT Grooming/Bathing: not tested Upper Extremity Dressing: not tested Lower Extremity Dressing: not tested Toileting/Transfers: Stand By Assist Mobility: Assist device: none Rolling: not tested Supine to/from Sit:Stand By Assist Sit to/from Stand: Stand By Assist Bed to/from Chair: Stand By Assist Splint Issued/Checked: none Splint Check Completed: N/A Balance: Static Sitting: good Dynamic Sitting: good Static Standing: good Dynamic Standing: good minus Activity tolerance: good Current Modified [place] Score: 4 Cognitive/Perceptual: A&Ox4; tangential and easily distracted. Needed lots of re-direction. Treatment/Therapeutic Exercise: Treatment session this date focused on ADL training Cognitive retraining Functional transfer training Endurance training Bed mobility Safety awareness ?? EDUCATION: While performing mobility and self care, Patient was instructed in: ?? Functional mobility training/weight bearing status, Cognitive retraining, Safety awareness/fall precaution and Self care training ?? Presented to patient who demonstrates Questionable understanding of instructions given. ? Equipment Issued: none ? Update Treatment Plan/Goals : continue plan of care ?? Short Term Goals: Patient will increason orientation to?person, place, time and situation Patient will perform eating?In chair and Independently Patient will perform grooming?Standing at sink and With min assist Patient will perform lower extremity dressing?At edge of bed and Independently Patient will perform bed to chair?With min assist ?? Patient Relations Director Goal:Patient to discharge to appropriate next level of inpatient care ?? If patient is discharged from the facility, this note serves as a discharge note if further occupational therapy visits did not occur. ?? Following therapy session, patient left in bed, with call light within reach and with RN, Christine smith. ?? * Mendoza Niño, PACKAGING SALES REPRESENTATIVE - 09/12/2021 1:52 PM CDT New Facility Placement Referral source: PT/OT Date of referral:09/12/2021 Admitted from: [facility] Special Needs: Patient Goal (short term and half-way): Short term Level of Care (SNF/Medicaid NH/Rehab/Patient Relations Director Care/LTACH): SNF Spoke with (Phone number, if not patient. Family participation encouraged): Family Contacted: Yes List of facilities provided (within patient geographic preference): Yes Referrals initiated: Continued Care and Services - Admitted Since 08/24/2021 Destination Service Provider Request Status Selected Services Address Phone Fax Patient Preferred [facility] Pending - Request Sent N/A [address] [facility] [address] -- Current Capacity last updated by Katia Gonzalez on 02/01/2021 1242 BEDS AVAILABLE!! Let me know if you need anything :) , Katia Carlos [phone] [facility] Pending - Request Sent N/A [address] [facility] [phone] -- [facility] Pending - Request Sent N/A [address] [facility] [facility] [phone] -- [facility] Pending - Request Sent N/A [address] [facility] [address] -- [facility] ([facility]) Pending - Request Sent N/A [address] [facility] [address] -- Current Capacity last updated by Marissa Rivera on 09/08/2021 0521 We currently have male and female rehabilitation beds available. , We will accept 10-day Post-COVID. , C, Essence, AETNA, Medicare and Active-Medicaid. , , Please call Marissa with any questions or for additional information. , , Note: (Starting September 16 Li Mcclendon will be your new Product Info Specialist to contact with [facility], the number will remain the same [phone], email: [email or web address] [facility] - Request Sent N/A [address] [facility] [phone] -- [facility] Pending - Request Sent N/A [address] [facility] [address] -- Internal Comment last updated by Bibi Hill, RN 09/01/2021 0938 admit coordinator, reports no male beds currently but will let us know if one opens up [facility] Pending - Request Sent N/A [address] [place] [address] -- Internal Comment last updated by Arnie Chand 09/07/2021 0853 09/07/2021 SANTINO contacted facility; Ed will f/u with Admission Director to confirm referral was received. Arnie Chand 09/07/2021 8:51 AM [facility] Pending - Request Sent N/A [address] [facility] [address] [phone] -- [facility] Pending - Request Sent N/A [address] [facility] [address] [phone] -- [facility] Pending - Request Sent N/A [address] [facility] [address] -- Internal Comment last updated by Arnie Chand 09/07/2021 0844 09/05/2021 SANTINO spoke with Tresa (Admissions) who indicated she did not receive referral. If Pt is possible long-term, facility will convert his primary insurance. SANTINO faxed referral to [phone] and confirmed Pt is vaccinated. Tresa will f/u with SANTINO after referral is reviewed. Arnie Chand 09/05/2021 11:01 AM 09/07/2021 SANTINO left message for Tresa (ext [phone]) for a referral status. Arnie Chand 09/07/2021 8:42 AM [facility] Pending - Request Sent N/A [address] [facility] [address] [phone] -- [facility] Pending - Request Sent N/A [address] [place] [address] [phone] -- [facility] Pending - Request Sent N/A [address] [facility] [phone] -- [facility] Pending - Request Sent N/A [address] [address] [phone] -- Internal Comment last updated by Arnie Chand 09/05/2021 1041 09/05/2021 SW contacted facility to request referral status; SW left message for Admissions. Arnie Chand 09/05/2021 10:39 AM [facility] Pending - Request Sent N/A [address] [place] [address] [phone] -- Internal Comment last updated by Arnie Chand 09/07/2021 0856 09/05/2021 SW contacted facility to request update on referral submitted; VM left. Arnie Chand 09/05/2021 10:42 AM 09/07/2021 SW contacted facility for referral status; Left VM. Arnie Chand 09/07/2021 8:56 AM [facility] Pending - Request Sent N/A [address] [address] [phone] -- Internal Comment last updated by Bibi Hill, RN 09/02/2021 1313 Left message 09/02 for admissions [facility] ([facility]) Pending - Request Sent N/A [address] [facility] [place] [address] [phone] -- [facility] Pending - Request Sent N/A [address] [facility] [address] -- [place] Pending - Request Sent N/A [address] [facility] [phone] -- [place] Pending - Request Sent N/A [address] [place] [address] [phone] -- [facility] Pending - Request Sent N/A [address] [facility] [phone] -- [facility] Pending - Request Sent N/A [address] [facility] [address] -- [facility] Pending - Request Sent N/A [address] [facility] [place] [address] [phone] -- [facility] Pending - Request Sent N/A [address] [facility] [phone] -- [facility] Declined History of violence and/or drug/alcohol abuse N/A [address] [facility] [phone] -- Current Capacity last updated by Ching Reyna on 05/13/2021 1316 [facility] [place] has several semi or private rooms available for female or male residents. We have just opened our short term wing again, they are all private rooms. We take Medicare, Medicaid, Medicaid pending, Aetna, and [facility]. [facility] Declined Facility cannot provide for patient's needs N/A [address] [facility] [phone] -- [facility] Declined No contract with patient's insurance carrier N/A [address] [facility] [phone] -- [facility] Declined Facility cannot provide for patient's needs N/A [address] [facility] [place] [address] [phone] -- [facility] Declined Facility cannot provide for patient's needs, Cannot meet Pt's Psychiatric Needs N/A [address] [address] -- Internal Comment last updated by Arnie Chand 09/07/2021 0849 09/07/2021 SANTINO contacted facility; Nuria requested the fax to be resubmitted. SW resent and will await f/u. Arnie Chand 09/07/2021 8:44 AM [facility] Declined Suicidal risk N/[place] [address] [place] [address] -- Internal Comment last updated by Arnie Chand 09/07/2021 0840 09/05/2021 SW called Admissions to f/u on referral update; Flor Susi([phone]) was unable to locate the referral during the call and will call SW back when it's located. Arnie Chand 09/05/2021 10:36 AM 09/06/2021 SANTINO spoke with Flor ([phone]) for referral update; Indicated she did not receive the fax; SANTINO resubmitted fax for review. Arnie Chand 09/06/2021 8:55 AM 09/07/2021 SANTINO contacted Flor to inquire about the status of referral; Pt declined due to danger to self. Arnie Chand 09/07/2021 8:37 AM [facility] Declined Facility cannot provide for patient's needsN/A [address] [facility] [address] [phone] -- Internal Comment last updated by Arnie Chand 09/08/2021 0829 09/07/2021 SANTINO contacted facility to request status update on referral; SW left message requesting a returned call. Arnie Chand 09/07/2021 8:41 AM 09/07/2021 Deven indicated that referral was not received via [employer]; SW resubmitted fax and answered questions. Deven will f/u with status. Arnie Chand 09/07/2021 10:40 AM 09/07/2021 SANTINO spoke w/ Emi who confirmed receipt of referral. Update on referral status will be provided by 09/08 morning. Arnie Chand 09/07/2021 2:48 PM 09/08/2021 SW spoke w/ Emi; DON declined due to facility's inability to meet Pt's needs. Arnie Chand 09/08/2021 8:29 AM [facility] Declined Facility cannot provide for patient's needs, History of violence and/or drug/alcohol abuse, Cannot meet patient's psychosocial needs N/A [address] [facility] [address] [phone] -- Internal Comment last updated by Arnie Chand 09/05/2021 1055 09/05/2021 SW contacted facility to request referral status; Lamar (Admission) denied Pt due to psych services/poly substance and facility is primary geriatric. Arnie Chand 09/05/2021 10:55 AM [facility] Declined Facility cannot provide for patient's needs N/A [address] [facility] [phone] -- [facility] Declined No contract with patient's insurance carrier N/A [address] [facility] [place] [phone] -- [facility] Declined Facility cannot provide for patient's needs N/A [address] [place] [address] [phone] -- monitoring facility responses Comments: Name: PIPER Beard * Miya Fonseca RN - 09/12/2021 1:30 PM CDT Case Management Progress Note Anticipated level of care at discharge: Senior Care - Skilled Facility Discharge Plan: SNF, SW following Basic Needs Assessment (BNA) Score: 10 Anticipated Discharge Date: Anticipated Discharge Date: 09/14/21 Patient/Family provided with list of resources? Unknown Preferred Provider / High Quality Network List given?: Unknown Reason for provider choice: Unknown Transportation at Discharge: (jennifer determined by disposition) Transportation to MD: Equipment at Home: Equipment At Home: None Additional DME needed: Hunger Screening: Within the past 12 months, you worried that your food would run out before you got the money to buymore.: Never true Within the past 12 months, the food you bought just didn???t last and you didn???t have money to get more.: Never true Medication affordability concerns: No Auth Number (if required) NH: DME: Medications: Transportation: Name: Miya Fonseca RN Phone: [phone] * Lamar Bowen PT - 09/12/2021 10:12 AM CDT [facility] Physical Medicine and Rehabilitation PhysicalTherapy Discharge Note Patient: Chester Dubose Jr. Med Record Number: [id number] Date of : 1970 Age: [age] year old Face Mask: PT had procedure mask and eye protection donned throughout session.? Discharge Recommendation: Patient will benefit from multidisciplinary inpatient therapies. ? Subjective: Patient is agreeable to work with PT ?? Patient currently using no assistive device. Mental Status: alert to self, requires max verbal cueing and cues for sequencing to don socks and shoes, poor insight and safety awareness At start of therapy session, patient found in bed and with no alarm. Pain: Patient has 0/10 pain - no signs or symptoms of pain Follow-up for pain: No follow-up for pain indicated and patient agreed to proceed with treatment Weight Bearing Status: no restrictions Mobility: Rolling: Independent Supine to Sit:Independent Sit to Supine: Independent Sit to Stand:Independent Bed to Chair: Independent Gait: Device:none Assistance: Independent Distance: 200 FT on the unit Deviations: patient is able to ambulate independently, however, does require max cueing for directions to navigate unit. When asked patient if he felt steady on his feet while walking, patient completed 180 degree turn and then walked backwards and then completed a 360 degree turn all without LOB. Balance: Static Sitting: good Dynamic sitting: good Static Standing: good Dynamic Standing: good Vitals: No signs or symptoms of distress Activity Tolerance: Patient's activity tolerance: good Modified Everardo Score: Current Modified [place] Score: 4 Treatment/therapeutic Exercise: session focused on bed mobility, sitting balance, sit<->stand, transfer training, gait training EDUCATION: While performing PT, Patient was instructed in:Functional mobility training/weight bearing status Patient demonstrated Poor understanding of instructions given. GOALS: Short Term Goals: Goal Formation?Patient unable to participate in goal formulation Patient will perform bed mobility:??Stand By Assist - MET (09/07/21) Patient will transfer sit to/from stand: Independent (MET 09/09/21) Patient will transfer bed to/from chair:??Independent (MET 09/09/21) Patient will ambulate 100 feet with Independent (MET 09/09/21) ?? Fdc Goal(s): Patient to discharge to appropriate next level of inpatient care If patient is discharged from the facility, this note serves as a discharge note if further physical therapy visits did not occur. Following therapy session, patient left in patient bedside chair. * Robbin Hook MD - 09/12/2021 8:14 AM CDT Hospitalist Progress Note 09/12/2021 Name: Chester Dubose Jr. Date of : 1970 Room: [facility] Hospital day: 19 Hospital course: Chester Dubose Jr. is a 51 year old male with a history of of bipolar disorder, polysubstance abuse, and alcoholic cirrhosis who was transferred from OSH on 08/24 for management of intraparenchymal hemorrhage after ingestion a bottle of crystal meth in a suicide attempt. After ingestion of crystal meth, patient developed seizure like activity and was taken to an OSH where he was given IV ativan and keppra. He was intubated for airway protection. Imaging revealed IPH and patient was subsequently transferred to [facility] for further management. Repeat imaging done at [facility] and confirming IPH. He was started on nicardipine drip for hypertensive emergency, given additional IV keppra and placed on cEEG. MRI with no underlying mass. His ICU stay was complicated by MRSA pneumonia for which he completed a course of antibiotics. He was successfully extubated on 08/30. Psychiatry consulted for evaluation of mood disorder/suicide attempt. Patient was cleared and sitter discontinued prior to arrival to [facility]. Currently pending placement in half-way facility. Interval history/Subjective: Patient doing well. No complaints. No events overnight. Medications: ??? 0.9% NaCl 3 mL Intracatheter q8h ??? heparin 5,000 Units Subcutaneous q8h ??? lacosamide 100 mg Oral BID ??? lactulose 10 g Oral BID ??? lisinopril 10 mg Oral QDAY ??? melatonin 6 mg Oral AT BEDTIME ??? QUEtiapine 100 mg Oral BID ??? rifAXIMin 550 mg Oral BID ??? tamsulosin 0.4 mg Oral QDAY ??? SALINE LOCK, INSERT AND MAINTAIN AND 0.9% NaCl AND 0.9% NaCl ??? acetaminophen ??? haloperidol OR haloperidol lactate OBJECTIVE: Physical Exam: Temp: [98.1 ??F (36.7 ??C)-98.4 ??F (36.9 ??C)] 98.4 ??F (36.9 ??C) Pulse: [92-93] 92 Resp: [18] 18 BP: (123-126)/(64-69) 123/69 General: Alert, cooperative, in NAD Neck: Supple, soft, non-tender. No LAD, JVD Cardio: RRR, normal S1 and S2, no murmurs Respiratory: Lungs clear to auscultation bilaterally, no wheezes, rhonchi, or crackles Abdomen: Soft, non-distended, bowel sounds present Extremities: No LE edema, Pulses 2+ and symmetric Skin: No rash or lesions Neuro: Aox3, no focal deficits Ins and outs: Intake/Output Summary (Last 24 hours) at 09/12/2021 0814 Last data filed at 09/11/2021 1215 Gross per 24 hour Intake 740 ml Output -- Net 740 ml Labs: CBC: Recent Labs Component Name 09/08/21 0620 09/06/21 0146 09/05/21 0122 WBC 4.5 9.2 8.1 HGB 11.4* 11.0* 11.3* BMP: Recent Labs Component Name 09/08/21 0620 09/07/21 1142 09/06/21 0146 NA 136 135* 133* CL 104 104 103 CO2 25 23 21* BUN 10 10 8 CREATININE 0.70* 0.60* 0.63* Recent Labs Component Name 09/08/21 0620 09/07/21 1142 09/06/21 0146 09/05/21 0122 09/05/21 0122 CALCIUM 7.8* 7.9* 7.4* - 7.9* PHOS 3.0 - 2.4* - 2.7* - = values in this interval not displayed. 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 - MRI brain done 08/27 without underlying mass, will need repeat MRI in a few months outpatient - No additional stroke workup pending - SBP goal <140 ?? - avoid antiplatelets and anticoagulation per neurology # Active SI, resolved - psych on board and cleared patient on 09/06. Sitter discontinued - suicide precautions - halodol for agitation and psychosis as per psych - monitor with daily??EKG ?? # Seizure Activity - Likely provoked 2/2 drug use - cEEG with rare left frontal/fronto-central epileptiform discharges, discontinued - Continue??Vimpat 100 mg BID ?? #Polysubstance Abuse #Suicidial Ideation #Bipolar Disorder - UDS on admission positive for amphetamines and methamphetamines - Psychiatry on board. Seroquel 100 BID Haldol 5mg [id number] PRN PO or IM??for severe non redirectable agitation ?? #HTN Emergency, resolved - SBP goal <140 - PRN hydralazine and labetolol for SBP >140 - TTE (08/25) with EF of 76%?? - Not on any home medications. Initiate if needed ?? 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 #Urinary Retention, resolved - Bladder scan as needed ?? #Thrombocytopenia - Likely 2/2 liver disease - Transfuse for platelets <50K ?? #MRSA PNA - Sputum positive from 08/27 - Completed linezolid course (EOT 09/03) ?? Robbin Hook MD Department of Internal Medicine * Cristal Oden RN - 09/12/2021 4:06 AM CDT Problem: Seizures Goal: Seizures are under control or absent Outcome: Progressing Problem: SEIZURE EVENT MONITORING Goal: To record an episode to determine whether or not the episode is a seizure. Outcome: Progressing Problem: Nutrient: Inadequate protein-energy intake Goal: Total intake will meet estimated nutrient needs Outcome: Progressing Problem: Neurological Deficit Goal: Neurological status is stable or improving Outcome: Progressing Problem: Hemodynamic Status/Cardiac Output Goal: Patient has stable vital signs and fluid balance Outcome: Progressing Problem: Oxygenation/Respiratory Function Goal: Respiratory rate/effort will be within specified limits Outcome: Progressing Problem: Mobility Goal: Patient's mobility/activity will be maintained as optimum level for age, diagnosis and physical limitations Outcome: Progressing Goal: Continuum of care needs are further met through referral to outpatient services when appropriate. Outcome: Progressing Goal: Patient reports the ability to perform Activities of Daily Living. Outcome: Progressing Problem: Communication Impairment/Dysarthria Goal: Ability to express needs and understand communication Outcome: Progressing Problem: Nutrition Goal: Nutritional status is improving Outcome: Progressing Problem: Aspiration Precautions Goal: Patient's risk of aspiration is minimized Outcome: Progressing Problem: Glycemic Control Goal: Clinical indication of glycemia balance is achieved Outcome: Progressing Problem: Knowledge Deficit,Education,Discharge Plan Goal: The patient/family will understand cerebrovascular disease and its symptoms, treatment and management Outcome: Progressing Problem: Pain/Discomfort Goal: Patient exhibits reduced pain/discomfort as evidenced by pain scores Outcome: Progressing Goal: Patient uses pharmacological and non-pharmacological pain management strategies. Outcome: Progressing Goal: Patient verbalizes acceptable level of pain relief and ability to engage in desired activity. Outcome: Progressing Problem: Fall Risk Goal: Fall risk and fall related injury risk are minimized (interventions related to the fall risk can be found in the flowsheet documentation) Outcome: Progressing Problem: Swallowing Goal: LTG - Patient will demonstrate safe swallowing Intervention/techniques Outcome: Progressing Goal: LTG - Patient will tolerate the least restrictive diet consistency to allow for safe consumption of daily meals Outcome: Progressing Problem: Cognitive/Linguistics Goal: STG - Patient will participate in further assessment of cognitive- linguistic skills Outcome: Progressing Problem: Mobility Goal: LTG - Patient will demonstrate safe mobility requirements. Outcome: Progressing Problem: Balance Goal: LTG - Patient will demonstrate Intervention to enhance balance for safe completion of daily activities Outcome: Progressing * Robbin Hook MD - 09/11/2021 8:49 AM CDT Hospitalist Progress Note 09/11/2021 Name: Chester Dubose Jr. Date of : 1970 Room: [facility] Hospital day: 18 Hospital course: Chester Dubose Jr. is a 51 year old male with a history of of bipolar disorder, polysubstance abuse, and alcoholic cirrhosis who was transferred from [facility]SH on 08/24 for management of intraparenchymal hemorrhage after ingestion a bottle of crystal meth in a suicide attempt. After ingestion of crystal meth, patient developed seizure like activity and was taken to an OSH where he was given IV ativan and keppra. He was intubated for airway protection. Imaging revealed IPH and patient was subsequently transferred to [facility] for further management. Repeat Further imaging done at [facility] and confirming IPH. He was started on nicardipine drip for hypertensive emergency, given additional IV keppra and placed on cEEG. MRI with no underlying mass. His ICU stay was complicated by MRSA pneumonia for which he completed a course of antibiotics. He was successfully extubated on 08/30. Psychiatry consulted for evaluation of mood disorder/suicide attempt. Patient was cleared and sitter di continued prior to arrival to [facility]. Interval history/Subjective: No events overnight. Patient doing well at baseline. Sister at bedside yesterday. Medications: ??? 0.9% NaCl 3 mL Intracatheter q8h ??? heparin 5,000 Units Subcutaneous q8h ??? lacosamide 100 mg Oral BID ??? lactulose 10 g Oral BID ??? lisinopril 10 mg Oral QDAY ??? melatonin 6 mg Oral AT BEDTIME ??? QUEtiapine 100 mg Oral BID ??? rifAXIMin 550 mg Oral BID ??? tamsulosin 0.4 mg Oral QDAY ??? SALINE LOCK, INSERT AND MAINTAIN AND 0.9% NaCl AND 0.9% NaCl ??? acetaminophen ??? haloperidol OR haloperidol lactate OBJECTIVE: Physical Exam: Temp: [97 ??F (36.1 ??C)-99.3 ??F (37.4 ??C)] 98.2 ??F (36.8 ??C) Pulse: [93-96] 93 Resp: [18-20] 18 BP: (105-123)/(60-70) 105/70 General: Alert, cooperative, in NAD Neck: Supple, soft, non-tender. No LAD, JVD Cardio: RRR, normal S1 and S2, no murmurs Respiratory: Lungs clear to auscultation bilaterally, no wheezes, rhonchi, or crackles Abdomen: Soft, non-distended, bowel sounds present Extremities: No LE edema, Pulses 2+ and symmetric Skin: No rash or lesions Neuro: Aox3, no focal deficits Ins and outs: Intake/Output Summary (Last 24 hours) at 09/11/2021 0849 Last data filed at 09/11/2021 0840 Gross per 24 hour Intake 3230 ml Output -- Net 3230 ml Labs: CBC: Recent Labs Component Name 09/08/21 0620 09/06/21 0146 09/05/21 0122 WBC 4.5 9.2 8.1 HGB 11.4* 11.0* 11.3* BMP: Recent Labs Component Name 09/08/21 0620 09/07/21 1142 09/06/21 0146 NA 136 135* 133* CL 104 104 103 CO2 * BUN 10 10 8 CREATININE 0.70* 0.60* 0.63* Recent Labs Component Name 09/08/21 0620 09/07/21 1142 09/06/21 0146 09/05/21 0122 09/05/21 0122 CALCIUM 7.8* 7.9* 7.4* - 7.9* PHOS 3.0 - 2.4* - 2.7* - = values in this interval not displayed. 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 - MRI brain done 08/27 without underlying mass, will need repeat MRI in a few months outpatient - No additional stroke workup pending - Na goal: normonatremia - SBP goal <140 ?? - avoid antiplatelets and anticoagulation # Active SI, resolved - psych on board - continuous observation with sitter, discontinued 09/06 AM as patient improving - suicide precautions - halodol for agitation and psychosis as per psych - monitor with daily??EKG ?? # Seizure Activity - Likely provoked 2/2 drug use - cEEG with rare left frontal/fronto-central epileptiform discharges, discontinued - Continue??Vimpat 100 mg BID ? #Polysubstance Abuse #Suicidial Ideation #Bipolar Disorder - UDS on admission positive for amphetamines and methamphetamines - ETOH level neg on admission, although unsure if drinking prior to admission - Due to stroke doubt degree to which he can be a harm to himself - Psychiatry on board. Seroquel 100 BID Haldol 5mg [id number] PRN PO or IM??for severe non redirectable agitation ?? #HTN Emergency, resolved - SBP goal <140 - PRN hydralazine and labetolol for SBP >140 - TTE (08/25) with EF of 76%? 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 #Urinary Retention, resolved - Bladder scan as needed ?? #Thrombocytopenia - Likely 2/2 liver disease - Transfuse for platelets <50K ?? #MRSA PNA - Sputum positive from 08/27 - Completed linezolid course (EOT 09/03) ?? Robbin Hook MD Department of Internal Medicine * Cristal Oden RN - 09/11/2021 12:57 AM CDT Problem: Seizures Goal: Seizures are under control or absent Outcome: Progressing Problem: SEIZURE EVENT MONITORING Goal: To record an episode to determine whether or not the episode is a seizure. Outcome: Progressing Problem: Nutrient: Inadequate protein-energy intake Goal: Total intake will meet estimated nutrient needs Outcome: Progressing Problem: Neurological Deficit Goal: Neurological status is stable or improving Outcome: Progressing Problem: Hemodynamic Status/Cardiac Output Goal: Patient has stable vital signs and fluid balance Outcome: Progressing Problem: Oxygenation/Respiratory Function Goal: Respiratory rate/effort will be within specified limits Outcome: Progressing Problem: Mobility Goal: Patient's mobility/activity will be maintained as optimum level for age, diagnosis and physical limitations Outcome: Progressing Goal: Continuum of care needs are further met through referral to outpatient services when appropriate. Outcome: Progressing Goal: Patient reports the ability to perform Activities of Daily Living. Outcome: Progressing Problem: Communication Impairment/Dysarthria Goal: Ability to express needs and understand communication Outcome: Progressing Problem: Nutrition Goal: Nutritional status is improving Outcome: Progressing Problem: Aspiration Precautions Goal: Patient's risk of aspiration is minimized Outcome: Progressing Problem: Glycemic Control Goal: Clinical indication of glycemia balance is achieved Outcome: Progressing Problem: Knowledge Deficit,Education,Discharge Plan Goal: The patient/family will understand cerebrovascular disease and its symptoms, treatment and management Outcome: Progressing Problem: Pain/Discomfort Goal: Patient exhibits reduced pain/discomfort as evidenced by pain scores Outcome: Progressing Goal: Patient uses pharmacological and non-pharmacological pain management strategies. Outcome: Progressing Goal: Patient verbalizes acceptable level of pain relief and ability to engage in desired activity. Outcome: Progressing Problem: Fall Risk Goal: Fall risk and fall related injury risk are minimized (interventions related to the fall risk can be found in the flowsheet documentation) Outcome: Progressing Problem: Swallowing Goal: LTG - Patient will demonstrate safe swallowing Intervention/techniques Outcome: Progressing Goal: LTG - Patient will tolerate the least restrictive diet consistency to allow for safe consumption of daily meals Outcome: Progressing Problem: Cognitive/Linguistics Goal: STG - Patient will participate in further assessment of cognitive- linguistic skills Outcome: Progressing Problem: Mobility Goal: LTG - Patient will demonstrate safe mobility requirements. Outcome: Progressing Problem: Balance Goal: LTG - Patient will demonstrate Intervention to enhance balance for safe completion of daily activities Outcome: Progressing * Robbin Hook MD - 09/10/2021 10:23 AM CDT Hospitalist Progress Note 09/10/2021 Name: Chester Dubose Jr. Date of : 1970 Room: [facility]/ Hospital day: 17 Hospital course: Chester Dubose Jr. is a 51 year old male with a history of of bipolar disorder, polysubstance abuse, and alcoholic cirrhosis who was transferred from [facility] on 08/24 for management of intraparenchymal hemorrhage after ingestion a bottle of crystal meth in a suicide attempt. After ingestion of crystal meth, patient developed seizure like activity and was taken to an OSH where he was given IV ativan and keppra. He was intubated for airway protection. Imaging revealed IPH and patient was subsequently [facility]. Repeat Further imaging done at [facility] and confirming IPH. He was started on nicardipine drip for hypertensive emergency, given addit ional IV keppra and placed on cEEG. MRI with no underlying mass. His ICU stay was complicated by MRSA pneumonia for which he completed a course of antibiotics. He was successfully extubated on 08/30. Psychiatry consulted for evaluation of mood disorder/suicide attempt. Patient was cleared and sitter di continued prior to arrival to [facility]. Interval history/Subjective: No complaints this AM. Patient walking around in his room. No events overnight. Placement pending. Medications: ??? 0.9% NaCl 3 mL Intracatheter q8h ??? heparin 5,000 Units Subcutaneous q8h ??? lacosamide 100 mg Oral BID ??? lactulose 10 g Oral BID ??? lisinopril 10 mg Oral QDAY ??? melatonin 6 mg Oral AT BEDTIME ??? QUEtiapine 100 mg Oral BID ??? rifAXIMin 550 mg Oral BID ??? tamsulosin 0.4 mg Oral QDAY ??? SALINE LOCK, INSERT AND MAINTAIN AND 0.9% NaCl AND 0.9% NaCl ??? acetaminophen ??? haloperidol OR haloperidol lactate OBJECTIVE: Physical Exam: Temp: [98.1 ??F (36.7 ??C)-98.8 ??F (37.1 ??C)] 98.2 ??F (36.8 ??C) Pulse: [84-105] 84 Resp: [16-18] 16 BP: (110-114)/(48-64) 114/63 General: Alert, cooperative, in NAD Neck: Supple, soft, non-tender. No LAD, JVD Cardio: RRR, normal S1 and S2, no murmurs Respiratory: Lungs clear to auscultation bilaterally, no wheezes, rhonchi, or crackles Abdomen: Soft, non-distended, bowel sounds present Extremities: No LE edema, Pulses 2+ and symmetric Skin: No rash or lesions Neuro: Aox3, no focal deficits Ins and outs: Intake/Output Summary (Last 24 hours) at 09/10/2021 1023 Last data filed at 09/09/2021 1800 Gross per 24 hour Intake 200 ml Output -- Net 200 ml Labs: CBC: Recent Labs Component Name 09/08/21 0620 09/06/21 0146 09/05/21 0122 WBC 4.5 9.2 8.1 HGB 11.4* 11.0* 11.3* BMP: Recent Labs Component Name 09/08/21 0620 09/07/21 1142 09/06/21 0146 NA 136 135* 133* CL 104 104 103 CO2 * BUN 10 10 8 CREATININE 0.70* 0.60* 0.63* Recent Labs Component Name 09/08/21 0620 09/07/21 1142 09/06/21 0146 09/05/21 0122 09/05/21 0122 CALCIUM 7.8* 7.9* 7.4* - 7.9* PHOS 3.0 - 2.4* - 2.7* - = values in this interval not displayed. 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 - MRI brain done 08/27 without underlying mass, will need repeat MRI in a few months outpatient - No additional stroke workup pending - Na goal: normonatremia - SBP goal <140 ?? - avoid antiplatelets and anticoagulation # Active SI, resolved - psych on board - continuous observation with sitter, discontinued 09/06 AM as patient improving - suicide precautions - halodol for agitation and psychosis as per psych - monitor with daily??EKG ?? # Seizure Activity - Likely provoked 2/2 drug use - cEEG with rare left frontal/fronto-central epileptiform discharges, discontinued - Continue??Vimpat 100 mg BID ? #Polysubstance Abuse #Suicidial Ideation #Bipolar Disorder - UDS on admission positive for amphetamines and methamphetamines - ETOH level neg on admission, although unsure if drinking prior to admission - Due to stroke doubt degree to which he can be a harm to himself - Psychiatry on board. Seroquel 100 BID Haldol 5mg [id number] PRN PO or IM??for severe non redirectable agitation ?? #HTN Emergency, resolved - SBP goal <140 - PRN hydralazine and labetolol for SBP >140 - TTE (08/25) with EF of 76%? 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 #Urinary Retention, resolved - Bladder scan as needed ?? #Thrombocytopenia - Likely 2/2 liver disease - Transfuse for platelets <50K ?? #MRSA PNA - Sputum positive from 08/27 - Completed linezolid course (EOT 09/03) ?? Robbin Hook MD Department of Internal Medicine * Ashutosh Chung RN - 09/09/2021 9:40 PM CDT Problem: Seizures Goal: Seizures are under control or absent Outcome: Progressing Problem: SEIZURE EVENT MONITORING Goal: To record an episode to determine whether or not the episode is a seizure. Outcome: Progressing Problem: Nutrient: Inadequate protein-energy intake Goal: Total intake will meet estimated nutrient needs Outcome: Progressing Problem: Neurological Deficit Goal: Neurological status is stable or improving Outcome: Progressing Problem: Hemodynamic Status/Cardiac Output Goal: Patient has stable vital signs and fluid balance Outcome: Progressing Problem: Oxygenation/Respiratory Function Goal: Respiratory rate/effort will be within specified limits Outcome: Progressing Problem: Mobility Goal: Patient's mobility/activity will be maintained as optimum level for age, diagnosis and physical limitations Outcome: Progressing Goal: Continuum of care needs are further met through referral to outpatient services when appropriate. Outcome: Progressing Goal: Patient reports the ability to perform Activities of Daily Living. Outcome: Progressing Problem: Communication Impairment/Dysarthria Goal: Ability to express needs and understand communication Outcome: Progressing Problem: Nutrition Goal: Nutritional status is improving Outcome: Progressing Problem: Aspiration Precautions Goal: Patient's risk of aspiration is minimized Outcome: Progressing Problem: Glycemic Control Goal: Clinical indication of glycemia balance is achieved Outcome: Progressing Problem: Knowledge Deficit,Education,Discharge Plan Goal: The patient/family will understand cerebrovascular disease and its symptoms, treatment and management Outcome: Progressing Problem: Pain/Discomfort Goal: Patient exhibits reduced pain/discomfort as evidenced by pain scores Outcome: Progressing Goal: Patient uses pharmacological and non-pharmacological pain management strategies. Outcome: Progressing Goal: Patient verbalizes acceptable level of pain relief and ability to engage in desired activity. Outcome: Progressing Problem: Fall Risk Goal: Fall risk and fall related injury risk are minimized (interventions related to the fall risk can be found in the flowsheet documentation) Outcome: Progressing Problem: Swallowing Goal: LTG - Patient will demonstrate safe swallowing Intervention/techniques Outcome: Progressing Goal: LTG - Patient will tolerate the least restrictive diet consistency to allow for safe consumption of daily meals Outcome: Progressing Problem: Cognitive/Linguistics Goal: STG - Patient will participate in further assessment of cognitive- linguistic skills Outcome: Progressing Problem: Mobility Goal: LTG - Patient will demonstrate safe mobility requirements. Outcome: Progressing Problem: Balance Goal: LTG - Patient will demonstrate Intervention to enhance balance for safe completion of daily activities Outcome: Progressing * Robbin Hook MD - 09/09/2021 10:04 AM CDT Hospitalist Progress Note 09/09/2021 Name: Chester Dubose Jr. Date of : 1970 Room: 12/1 Hospital day: 16 Hospital course: Chester Dubose Jr. is a 51 year old male with a history of of bipolar disorder, polysubstance abuse, and alcoholic cirrhosis who was transferred from OSH on 08/24 for management of intraparenchymal hemorrhage after ingestion a bottle of crystal meth in a suicide attempt. After ingestion of crystal meth, patient developed seizure like activity and was taken to an OSH where he was given IV ativan and keppra. He was intubated for airway protection. Imaging revealed IPH and patient was subsequently transferred to [facility] for further management. Repeat Further imaging done at [facility] and confirming IPH. He was started on nicardipine drip for hypertensive emergency, given addit ional IV keppra and placed on cEEG. MRI with no underlying mass. His ICU stay was complicated by MRSA pneumonia for which he completed a course of antibiotics. He was successfully extubated on 08/30. Psychiatry consulted for evaluation of mood disorder and suicide attempt. Interval history/Subjective: No events overnight. No major complaints this AM. Eating well and having 2-3 BM a day. Pending placement Medications: ??? 0.9% NaCl 3 mL Intracatheter q8h ??? heparin 5,000 Units Subcutaneous q8h ??? lacosamide 100 mg Oral BID ??? lisinopril 10 mg Oral QDAY ??? melatonin 6 mg Oral AT BEDTIME ??? QUEtiapine 100 mg Oral BID ??? rifAXIMin 550 mg Oral BID ??? tamsulosin 0.4 mg Oral QDAY ??? SALINE LOCK, INSERT AND MAINTAIN AND 0.9% NaCl AND 0.9% NaCl ??? acetaminophen ??? haloperidol OR haloperidol lactate ??? lactulose OBJECTIVE: Physical Exam: Temp: [97 ??F (36.1 ??C)-99.9 ??F (37.7 ??C)] 97.7 ??F (36.5 ??C) Pulse: [89-96] 91 Resp: [16-18] 16 BP: (92-125)/(48-69) 125/69 General: Alert, cooperative, in NAD Neck: Supple, soft, non-tender. No LAD, JVD Cardio: RRR, normal S1 and S2, no murmurs Respiratory: Lungs clear to auscultation bilaterally, no wheezes, rhonchi, or crackles Abdomen: Soft, non-distended, bowel sounds present Extremities: No LE edema, Pulses 2+ and symmetric Skin: No rash or lesions Neuro: Aox3, no focal deficits Ins and outs: Intake/Output Summary (Last 24 hours) at 09/09/2021 1004 Last data filed at 09/09/2021 0800 Gross per 24 hour Intake 550 ml Output 0 ml Net 550 ml Labs: CBC: Recent Labs Component Name 09/08/21 0620 09/06/21 0146 09/05/21 0122 WBC 4.5 9.2 8.1 HGB 11.4* 11.0* 11.3* BMP: Recent Labs Component Name 09/08/21 0620 09/07/21 1142 09/06/21 0146 NA 136 135* 133* CL 104 104 103 CO2 23 21* BUN 10 10 8 CREATININE 0.70* 0.60* 0.63* Recent Labs Component Name 09/08/21 0620 09/07/21 1142 09/06/21 0146 09/05/21 0122 09/05/21 0122 CALCIUM 7.8* 7.9* 7.4* - 7.9* PHOS 3.0 - 2.4* - 2.7* - = values in this interval not displayed. 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 - MRI brain done 08/27 without underlying mass, will need repeat MRI in a few months outpatient - No additional stroke workup pending - Na goal: normonatremia - SBP goal <140 ?? - avoid antiplatelets and anticoagulation # Active SI, resolved - psych on board - continuous observation with sitter, discontinued 09/06 AM as patient improving - suicide precautions - halodol for agitation and psychosis as per psych - monitor with daily??EKG ?? # Seizure Activity - Likely provoked 2/2 drug use - cEEG with rare left frontal/fronto-central epileptiform discharges, discontinued - Continue??Vimpat 100 mg BID ? #Polysubstance Abuse #Suicidial Ideation #Bipolar Disorder - UDS on admission positive for amphetamines and methamphetamines - ETOH level neg on admission, although unsure if drinking prior to admission - Due to stroke doubt degree to which he can be a harm to himself - Psychiatry on board. Seroquel 100 BID Haldol 5mg [id number] PRN PO or IM??for severe non redirectable agitation ?? #HTN Emergency, resolved - SBP goal <140 - PRN hydralazine and labetolol for SBP >140 - TTE (08/25) with EF of 76%? 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 #Urinary Retention, resolved - Bladder scan as needed ?? #Thrombocytopenia - Likely 2/2 liver disease - Transfuse for platelets <50K ?? #MRSA PNA - Sputum positive from 08/27 - Completed linezolid course (EOT 09/03) ?? Robbin Hook MD Department of Internal Medicine * Ashutosh Chung RN - 09/08/2021 9:48 PM CDT Problem: Seizures Goal: Seizures are under control or absent Outcome: Progressing Problem: SEIZURE EVENT MONITORING Goal: To record an episode to determine whether or not the episode is a seizure. Outcome: Progressing Problem: Nutrient: Inadequate protein-energy intake Goal: Total intake will meet estimated nutrient needs Outcome: Progressing Problem: Neurological Deficit Goal: Neurological status is stable or improving Outcome: Progressing Problem: Hemodynamic Status/Cardiac Output Goal: Patient has stable vital signs and fluid balance Outcome: Progressing Problem: Oxygenation/Respiratory Function Goal: Respiratory rate/effort will be within specified limits Outcome: Progressing Problem: Mobility Goal: Patient's mobility/activity will be maintained as optimum level for age, diagnosis and physical limitations Outcome: Progressing Goal: Continuum of care needs are further met through referral to outpatient services when appropriate. Outcome: Progressing Goal: Patient reports the ability to perform Activities of Daily Living. Outcome: Progressing Problem: Communication Impairment/Dysarthria Goal: Ability to express needs and understand communication Outcome: Progressing Problem: Nutrition Goal: Nutritional status is improving Outcome: Progressing Problem: Aspiration Precautions Goal: Patient's risk of aspiration is minimized Outcome: Progressing Problem: Glycemic Control Goal: Clinical indication of glycemia balance is achieved Outcome: Progressing Problem: Knowledge Deficit,Education,Discharge Plan Goal: The patient/family will understand cerebrovascular disease and its symptoms, treatment and management Outcome: Progressing Problem: Pain/Discomfort Goal: Patient exhibits reduced pain/discomfort as evidenced by pain scores Outcome: Progressing Goal: Patient uses pharmacological and non-pharmacological pain management strategies. Outcome: Progressing Goal: Patient verbalizes acceptable level of pain relief and ability to engage in desired activity. Outcome: Progressing Problem: Fall Risk Goal: Fall risk and fall related injury risk are minimized (interventions related to the fall risk can be found in the flowsheet documentation) Outcome: Progressing Problem: Swallowing Goal: LTG - Patient will demonstrate safe swallowing Intervention/techniques Outcome: Progressing Goal: LTG - Patient will tolerate the least restrictive diet consistency to allow for safe consumption of daily meals Outcome: Progressing Problem: Cognitive/Linguistics Goal: STG - Patient will participate in further assessment of cognitive- linguistic skills Outcome: Progressing Problem: Mobility Goal: LTG - Patient will demonstrate safe mobility requirements. Outcome: Progressing Problem: Balance Goal: LTG - Patient will demonstrate Intervention to enhance balance for safe completion of daily activities Outcome: Progressing * Radha Moss RN - 09/08/2021 3:47 PM CDT Problem: Seizures Goal: Seizures are under control or absent Outcome: Progressing Problem: SEIZURE EVENT MONITORING Goal: To record an episode to determine whether or not the episode is a seizure. Outcome: Progressing Problem: Nutrient: Inadequate protein-energy intake Goal: Total intake will meet estimated nutrient needs Outcome: Progressing Problem: Neurological Deficit Goal: Neurological status is stable or improving Outcome: Progressing Problem: Hemodynamic Status/Cardiac Output Goal: Patient has stable vital signs and fluid balance Outcome: Progressing Problem: Oxygenation/Respiratory Function Goal: Respiratory rate/effort will be within specified limits Outcome: Progressing Problem: Mobility Goal: Patient's mobility/activity will be maintained as optimum level for age, diagnosis and physical limitations Outcome: Progressing Goal: Continuum of care needs are further met through referral to outpatient services when appropriate. Outcome: Progressing Goal: Patient reports the ability to perform Activities of Daily Living. Outcome: Progressing Problem: Communication Impairment/Dysarthria Goal: Ability to express needs and understand communication Outcome: Progressing Problem: Nutrition Goal: Nutritional status is improving Outcome: Progressing Problem: Aspiration Precautions Goal: Patient's risk of aspiration is minimized Outcome: Progressing Problem: Glycemic Control Goal: Clinical indication of glycemia balance is achieved Outcome: Progressing Problem: Knowledge Deficit,Education,Discharge Plan Goal: The patient/family will understand cerebrovascular disease and its symptoms, treatment and management Outcome: Progressing Problem: Pain/Discomfort Goal: Patient exhibits reduced pain/discomfort as evidenced by pain scores Outcome: Progressing Goal: Patient uses pharmacological and non-pharmacological pain management strategies. Outcome: Progressing Goal: Patient verbalizes acceptable level of pain relief and ability to engage in desired activity. Outcome: Progressing Problem: Fall Risk Goal: Fall risk and fall related injury risk are minimized (interventions related to the fall risk can be found in the flowsheet documentation) Outcome: Progressing Problem: Swallowing Goal: LTG - Patient will demonstrate safe swallowing Intervention/techniques Outcome: Progressing Goal: LTG - Patient will tolerate the least restrictive diet consistency to allow for safe consumption of daily meals Outcome: Progressing Problem: Cognitive/Linguistics Goal: STG - Patient will participate in further assessment of cognitive- linguistic skills Outcome: Progressing Problem: Mobility Goal: LTG - Patient will demonstrate safe mobility requirements. Outcome: Progressing Problem: Balance Goal: LTG - Patient will demonstrate Intervention to enhance balance for safe completion of daily activities Outcome: Progressing * Robbin Hook MD - 09/08/2021 9:39 AM CDT Hospitalist Progress Note 09/08/2021 Name: Chester Dubose Jr. Date of : 1970 Room: [facility] Hospital day: 15 Hospital course: Chester Dubose Jr. is a 51 year old male with a history of of bipolar disorder, polysubstance abuse, and alcoholic cirrhosis who was transferred from OSH on 08/24 for management of intraparenchymal hemorrhage after ingestion a bottle of crystal meth in a suicide attempt. After ingestion of crystal meth, patient developed seizure like activity and was taken to an OSH where he was given IV ativan and keppra. He was intubated for airway protection. Imaging revealed IPH and patient was subsequently transferred to [facility] for further management. Repeat Further imaging done at [facility] and confirming IPH. He was started on nicardipine drip for hypertensive emergency, given addit ional IV keppra and placed on cEEG. MRI with no underlying mass. His ICU stay was complicated by MRSA pneumonia for which he completed a course of antibiotics. He was successfully extubated on 08/30. Psychiatry consulted for evaluation of mood disorder and suicide attempt. Interval history/Subjective: No events overnight. Patient calm. No complaints. Medications: ??? 0.9% NaCl 3 mL Intracatheter q8h ??? heparin 5,000 Units Subcutaneous q8h ??? lacosamide 100 mg Oral BID ??? lisinopril 10 mg Oral QDAY ??? melatonin 6 mg Oral AT BEDTIME ??? QUEtiapine 100 mg Oral BID ??? rifAXIMin 550 mg Oral BID ??? tamsulosin 0.4 mg Oral QDAY ??? SALINE LOCK, INSERT AND MAINTAIN AND 0.9% NaCl AND 0.9% NaCl ??? acetaminophen ??? haloperidol OR haloperidol lactate ??? lactulose OBJECTIVE: Physical Exam: Temp: [97.6 ??F (36.4 ??C)-100.4 ??F (38 ??C)] 98.8 ??F (37.1 ??C) Pulse: [74-91] 74 Resp: [18-19] 18 BP: (116-129)/(54-78) 116/64 General: Alert, cooperative, in NAD Neck: Supple, soft, non-tender. No LAD, JVD Cardio: RRR, normal S1 and S2, no murmurs Respiratory: Lungs clear to auscultation bilaterally, no wheezes, rhonchi, or crackles Abdomen: Soft, non-distended, bowel sounds present Extremities: No LE edema, Pulses 2+ and symmetric Skin: No rash or lesions Neuro: Aox3, no focal deficits Ins and outs: Intake/Output Summary (Last 24 hours) at 09/08/2021 0939 Last data filed at 09/08/2021 0800 Gross per 24 hour Intake 768 ml Output 200 ml Net 568 ml Labs: CBC: Recent Labs Component Name 09/08/21 0620 09/06/21 0146 09/05/21 0122 WBC 4.5 9.2 8.1 HGB 11.4* 11.0* 11.3* BMP: Recent Labs Component Name 09/08/21 0620 09/07/21 1142 09/06/21 0146 NA 136 135* 133* CL 104 104 103 CO2 25 23 21* BUN 10 10 8 CREATININE 0.70* 0.60* 0.63* Recent Labs Component Name 09/08/21 0620 09/07/21 1142 09/06/21 0146 09/05/21 0122 09/05/21 0122 CALCIUM 7.8* 7.9* 7.4* - 7.9* PHOS 3.0 - 2.4* - 2.7* - = values in this interval not displayed. 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 - MRI brain done 08/27 without underlying mass, will need repeat MRI in a few months outpatient - No additional stroke workup pending - Na goal: normonatremia - SBP goal <140 ?? - q4h neurochecks?? - avoid antiplatelets and anticoagulation ?? # Active SI, resolved - psych on board - continuous observation with sitter, discontinued 09/06 AM as patient improving - suicide precautions - halodol for agitation and psychosis as per psych - monitor with daily??EKG ?? # Seizure Activity - Likely provoked 2/2 drug use - cEEG with rare left frontal/fronto-central epileptiform discharges, discontinued - Continue??Vimpat 100 mg BID ? #Polysubstance Abuse #Suicidial Ideation #Bipolar Disorder - UDS on admission positive for amphetamines and methamphetamines - ETOH level neg on admission, although unsure if drinking prior to admission - Due to stroke doubt degree to which he can be a harm to himself - Psychiatry on board. Seroquel 100 BID Haldol 5mg [id number] PRN PO or IM??for severe non redirectable agitation ?? #HTN Emergency, resolved - SBP goal <140 - PRN hydralazine and labetolol for SBP >140 - TTE (08/25) with EF of 76%? 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 #Urinary Retention, resolved - Delirium and stroke likely contributing ?? - Continue with home tamsulosin - Monitor intake and output - urinary cath, removed ?? #Thrombocytopenia - Likely 2/2 liver disease - Transfuse for platelets <50K ?? #MRSA PNA - Sputum positive from 08/27 - Completed linezolid course (EOT 09/03) ?? Robbin Hook MD Department of Internal Medicine * Arnie Chand - 09/08/2021 8:29 AM CDT Social Work Progress Note Discharge Plan Disposition: SW reviewed Pt's chart. Pt moved to [facility] for continuity of care and coordination of discharge plan. SANTINO spoke with Emi ([facility]) to provide status on referral. Facility is unable to meet Pt's needs at this time. Continued Care and Services - Admitted Since 08/24/2021 Destination Service Provider Request Status Selected Services Address Phone Fax Patient Preferred [facility] Pending - Request Sent N/A [address] [facility] [address] -- Current Capacity last updated by Katia Gonzalez on 02/01/2021 1242 BEDS AVAILABLE!! Let me know if you need anything :Katia Lamb [phone] [facility] Pending - Request Sent N/A [address] [facility] [address] -- DAT GUERRERO Pending - Request Sent N/A [address] [facility] [facility] [address] -- [facility] Pending - Request Sent N/A [address] [facility] [address] -- [facility] ([facility] Pending - Request Sent N/A [address] [facility] [address] -- Current Capacity last updated by Marissa Rivera on 09/08/2021 0521 We currently have male and female rehabilitation beds available. , We will accept 10-day Post-COVID. , UHC, Essence, AETNA, Medicare and Active-Medicaid. , , Please call Marissa with any questions or for additional information. , , Note: (Starting September 16 Li Mcclendon will be your new Product Info Specialist to contact with Isaac De Oliveira, the number will remain the same [phone], email: [email or web address] [facility] Pending - Request Sent N/A [address] [facility] [address] -- [facility] Pending - Request Sent N/A [address] [facility] [phone] -- Internal Comment last updated by Bibi Hill, RN 09/01/2021 0938 admit coordinator, reports no male beds currently but will let us know if one opens up [facility] Pending - Request Sent N/A [address] [facility] [address] -- Internal Comment last updated by Arnie Chand 09/07/2021 0853 09/07/2021 SW contacted facility; Ed will f/u with Admission Director to confirm referral was received. Arnie Chand 09/07/2021 8:51 AM [facility] Pending - Request Sent N/A [address] [facility] [address] [phone] -- [facility] Pending - Request Sent N/A [address] [facility] [address] [phone] -- [facility] Pending - Request Sent N/A [address] [facility] [address] -- Internal Comment last updated by Arnie Chand 09/07/2021 0844 09/05/2021 SW spoke with Tresa (Admissions) who indicated she did not receive referral. If Pt is possible long-term, facility will convert his primary insurance. SANTINO faxed referral to [phone] and confirmed Pt is vaccinated. Tresa will f/u with SANTINO after referral is reviewed. Arnie Chand 09/05/2021 11:01 AM 09/07/2021 SW left message for Tresa (ext [phone]) for a referral status. Arnie Chand 09/07/2021 8:42 AM [facility] Pending - Request Sent N/A [address] [facility] [facility] [facility] [address] [facility] [address] [phone] -- [facility] Pending - Request Sent N/A [address] [facility] [address] [phone] -- [facility] Pending - Request Sent N/A [address] [facility] [address] [phone] -- [facility] Pending - Request Sent N/A [address] [place] [address] [phone] -- Internal Comment last updated by Arnie Chand 09/05/2021 1041 09/05/2021 SW contacted facility to request referral status; SW left message for Admissions. Arnie Chand 09/05/2021 10:39 AM [facility] Pending - Request Sent N/A [address] [place] [address] [phone] -- Internal Comment last updated by Arnie Chand 09/07/2021 0856 09/05/2021 SW contacted facility to request update on referral submitted; VM left. Arnie Chand 09/05/2021 10:42 AM 09/07/2021 SANTINO contacted facility for referral status; Left VM. Arnie Chand 09/07/2021 8:56 AM [facility] Pending - Request Sent N/A [address] [address] [phone] -- Internal Comment last updated by Bibi Hill, RN 09/02/2021 1313 Left message 09/02 for admissions [facility] Declined History of violence and/or drug/alcohol abuse N/A [address] [facility] [phone] -- Current Capacity last updated by Ching Reyna on 05/13/2021 1316 Cedric Hurtado has several semi or private rooms available for female or male residents. We have just opened our short term wing again, they are all private rooms. We take Medicare, Medicaid, Medicaid pending, Aetna, and [facility]. [facility] Declined Facility cannot provide for patient's needs N/A [address] [facility] [address] -- [facility] Declined No contract with patient's insurance carrier N/A [address] [facility] [phone] -- [facility] Declined Facility cannot provide for patient's needs N/A [address] [facility] [address] [phone] -- [facility] Declined Facility cannot provide for patient's needs, Cannot meet Pt's Psychiatric Needs N/A [address] [place] [phone] -- Internal Comment last updated by Arnie Chand 09/07/2021 0849 09/07/2021 SANTINO contacted facility; Nuria requested the fax to be resubmitted. SW resent and will await f/u. Arnie Chand 09/07/2021 8:44 AM [facility] Declined Suicidal risk N/[place] [address] [place] [address] -- Internal Comment last updated by Arnie Chand 09/07/2021 0840 09/05/2021 SW called Admissions to f/u on referral update; Flor Goldman([phone]) was unable to locate the referral during the call and will call SW back when it's located. Arnie Chand 09/05/2021 10:36 AM 09/06/2021 SW spoke with Flor ([phone]) for referral update; Indicated she did not receive the fax; SW resubmitted fax for review. Arnie Chand 09/06/2021 8:55 AM 09/07/2021 SW contacted Flor to inquire about the status of referral; Pt declined due to danger to self. Arnie Chand 09/07/2021 8:37 AM [facility] Declined Facility cannot provide for patient's needsN/A [address] [facility] [address] [phone] -- Internal Comment last updated by Arnie Chand 09/08/2021 0829 09/07/2021 SW contacted facility to request status update on referral; SW left message requesting a returned call. Arnie Chand 09/07/2021 8:41 AM 09/07/2021 Deven indicated that referral was not received via [employer]; SW resubmitted fax and answered questions. Deven will f/u with status. Arnie Chand 09/07/2021 10:40 AM 09/07/2021 SW spoke w/ Emi who confirmed receipt of referral. Update on referral status will be provided by 09/08 morning. Arnie Chand 09/07/2021 2:48 PM 09/08/2021 SW spoke w/ Emi; DON declined due to facility's inability to meet Pt's needs. Arnie Chand 09/08/2021 8:29 AM [facility] Declined Facility cannot provide for patient's needs, History of violence and/or drug/alcohol abuse, Cannot meet patient's psychosocial needs N/A [address] [facility] [address] -- Internal Comment last updated by Arnie Chand 09/05/2021 1055 09/05/2021 SW contacted facility to request referral status; Lamar (Admission) denied Pt due to psych services/poly substance and facility is primary geriatric. Arnie Chand 09/05/2021 10:55 AM [facility] Declined Facility cannot provide for patient's needs N/A [address] [facility] [address] -- [facility] Declined No contract with patient's insurance carrier N/A [address] [facility] [facility] [phone] -- [facility] Declined Facility cannot provide for patient's needs N/A [address] [place] [address] -- Transportation (if ambulance rationale): Transportation at discharge: (jennifer determined by disposition) Anticipated Discharge Date: Anticipated Discharge Date: 09/12/21 PIPER Dumont MBA Anodizing Line Operator [phone] 09/08/2021 8:32 AM * Robyn Hoang RN - 09/07/2021 10:49 PM CDT Problem: Seizures Goal: Seizures are under control or absent Outcome: Progressing Problem: SEIZURE EVENT MONITORING Goal: To record an episode to determine whether or not the episode is a seizure. Outcome: Progressing Problem: Nutrient: Inadequate protein-energy intake Goal: Total intake will meet estimated nutrient needs Outcome: Progressing Problem: Neurological Deficit Goal: Neurological status is stable or improving Outcome: Progressing Problem: Hemodynamic Status/Cardiac Output Goal: Patient has stable vital signs and fluid balance Outcome: Progressing Problem: Oxygenation/Respiratory Function Goal: Respiratory rate/effort will be within specified limits Outcome: Progressing Problem: Mobility Goal: Patient's mobility/activity will be maintained as optimum level for age, diagnosis and physical limitations Outcome: Progressing Goal: Continuum of care needs are further met through referral to outpatient services when appropriate. Outcome: Progressing Goal: Patient reports the ability to perform Activities of Daily Living. Outcome: Progressing Problem: Communication Impairment/Dysarthria Goal: Ability to express needs and understand communication Outcome: Progressing Problem: Nutrition Goal: Nutritional status is improving Outcome: Progressing Problem: Aspiration Precautions Goal: Patient's risk of aspiration is minimized Outcome: Progressing Problem: Glycemic Control Goal: Clinical indication of glycemia balance is achieved Outcome: Progressing Problem: Knowledge Deficit,Education,Discharge Plan Goal: The patient/family will understand cerebrovascular disease and its symptoms, treatment and management Outcome: Progressing Problem: Pain/Discomfort Goal: Patient exhibits reduced pain/discomfort as evidenced by pain scores Outcome: Progressing Goal: Patient uses pharmacological and non-pharmacological pain management strategies. Outcome: Progressing Goal: Patient verbalizes acceptable level of pain relief and ability to engage in desired activity. Outcome: Progressing Problem: Fall Risk Goal: Fall risk and fall related injury risk are minimized (interventions related to the fall risk can be found in the flowsheet documentation) Outcome: Progressing Problem: Swallowing Goal: LTG - Patient will demonstrate safe swallowing Intervention/techniques Outcome: Progressing Goal: LTG - Patient will tolerate the least restrictive diet consistency to allow for safe consumption of daily meals Outcome: Progressing Problem: Cognitive/Linguistics Goal: STG - Patient will participate in further assessment of cognitive- linguistic skills Outcome: Progressing Problem: Mobility Goal: LTG - Patient will demonstrate safe mobility requirements. Outcome: Progressing Problem: Balance Goal: LTG - Patient will demonstrate Intervention to enhance balance for safe completion of daily activities Outcome: Progressing * Robbin Hook MD - 09/07/2021 6:23 PM CDT Hospitalist Progress Note 09/07/2021 Name: Chester Dubose Jr. Date of : 1970 Room: [facility] Hospital day: 14 Hospital course: Chester Dubose Jr. is a 51 year old male with a history of of bipolar disorder, polysubstance abuse, and alcoholic cirrhosis who was transferred from OSH on 08/24 for management of intraparenchymal hemorrhage after ingestion a bottle of crystal meth in a suicide attempt. After ingestion of crystal meth, patient developed seizure like activity and was taken to an OSH where he was given IV ativan and keppra. He was intubated for airway protection. Imaging revealed IPH and patient was subsequently transferred to [facility] for further management. Repeat Further imaging done at [facility] and confirming IPH. He was started on nicardipine drip for hypertensive emergency, given addit ional IV keppra and placed on cEEG. MRI with no underlying mass. His ICU stay was complicated by MRSA pneumonia for which he completed a course of antibiotics. He was successfully extubated on 08/30. Psychiatry consulted for evaluation of mood disorder and suicide attempt. Interval history/Subjective: Patient [facility] from [facility] to [facility] this afternoon. He is HD stable and has no complaints. No agitations. Calm and pleasant Medications: ??? 0.9% NaCl 3 mL Intracatheter q8h ??? heparin 5,000 Units Subcutaneous q8h ??? lacosamide 100 mg Oral BID ??? lisinopril 10 mg Oral QDAY ??? melatonin 6 mg Oral AT BEDTIME ??? QUEtiapine 100 mg Oral BID ??? rifAXIMin 550 mg Oral BID ??? tamsulosin 0.4 mg Oral QDAY ??? SALINE LOCK, INSERT AND MAINTAIN AND 0.9% NaCl AND 0.9% NaCl ??? acetaminophen ??? haloperidol OR haloperidol lactate ??? lactulose OBJECTIVE: Physical Exam: Temp: [97.6 ??F (36.4 ??C)-98.9 ??F (37.2 ??C)] 97.6 ??F (36.4 ??C) Pulse: [80-97] 80 Resp: [18-20] 18 BP: (99-129)/(45-78) 122/78 General: Alert, cooperative, in NAD Neck: Supple, soft, non-tender. No LAD, JVD Cardio: RRR, normal S1 and S2, no murmurs Respiratory: Lungs clear to auscultation bilaterally, no wheezes, rhonchi, or crackles Abdomen: Soft, non-distended, bowel sounds present Extremities: No LE edema, Pulses 2+ and symmetric Skin: No rash or lesions Neuro: Aox3, no focal deficits Ins and outs: Intake/Output Summary (Last 24 hours) at 09/07/2021 1823 Last data filed at 09/07/2021 0800 Gross per 24 hour Intake 200 ml Output -- Net 200 ml Labs: CBC: Recent Labs Component Name 09/06/21 0146 09/05/21 0122 09/04/21 0203 WBC 9.2 8.1 5.1 HGB 11.0* 11.3* 12.2 BMP: Recent Labs Component Name 09/07/21 1142 09/06/21 0146 09/05/21 0122 NA 135* 133* 138 CL 104 103 108* CO2 23 21* 23 BUN 10 8 10 CREATININE 0.60* 0.63* 0.70* Recent Labs Component Name 09/07/21 1142 09/06/21 0146 09/05/21 0122 09/04/21 0203 09/04/21 0203 CALCIUM 7.9* 7.4* 7.9* - 8.2* PHOS - 2.4* 2.7* - 2.7* - = values in this interval not displayed. 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 - MRI brain done 08/27 without underlying mass, will need repeat MRI in a few months outpatient - No additional stroke workup pending - Na goal: normonatremia - SBP goal <140 ?? - q4h neurochecks?? - avoid antiplatelets and anticoagulation ?? # Active SI, resolved - psych on board - continuous observation with sitter, discontinued 09/06 AM as patient improving - suicide precautions - halodol for agitation and psychosis as per psych - monitor with daily??EKG ?? # Seizure Activity - Likely provoked 2/2 drug use - cEEG with rare left frontal/fronto-central epileptiform discharges, discontinued - Continue??Vimpat 100 mg BID ? #Polysubstance Abuse #Suicidial Ideation #Bipolar Disorder - UDS on admission positive for amphetamines and methamphetamines - ETOH level neg on admission, although unsure if drinking prior to admission - Due to stroke doubt degree to which he can be a harm to himself - Psychiatry on board. Seroquel 100 BID Haldol 5mg [id number] PRN PO or IM??for severe non redirectable agitation ?? #HTN Emergency, resolved - SBP goal <140 - PRN hydralazine and labetolol for SBP >140 - TTE (08/25) with EF of 76%? 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 #Urinary Retention, resolved - Delirium and stroke likely contributing ?? - Continue with home tamsulosin - Monitor intake and output - urinary cath, removed ?? #Thrombocytopenia - Likely 2/2 liver disease - Transfuse for platelets <50K ?? #MRSA PNA - Sputum positive from 08/27 - Completed linezolid course (EOT 09/03) ?? Robbin Hook MD Department of Internal Medicine * Analilia Mcclendon RN - 09/07/2021 6:00 PM CDT Pt arrived to 7712 in no distress. Focused assessment and NIH done at this time. Pt oriented to person only. Pt calm and cooperative. No concerns voiced at this time. Wctm * Lamar Bowen, PT - 09/07/2021 4:07 PM CDT [facility] Physical Medicine and Rehabilitation PhysicalTherapy Progress Note Patient: Chester Dubose Jr. Med Record Number: [id number] Date of : 1970 Age: [age] year old Face Mask: PT had procedure mask and eye protection donned throughout session. Discharge Recommendation: Patient will benefit from multidisciplinary inpatient therapies. Subjective: Patient is agreeable to work with PT Mental Status: alert, oriented to self, able to state he is in the hospital when provided with 2 choices, unable to state year and month; patient is tangential with his conversations, poor command following, and poor insight and safety awareness At start of therapy session, patient found in bed and with no alarm. Pain: Patient has 0/10 pain Follow-up for pain: No follow-up for pain indicated and patient agreed to proceed with treatment Weight Bearing Status: no restrictions Mobility: Rolling: Independent Supine to Sit:Independent Sit to Supine: Independent Sit to Stand:Stand By Assist Bed to Chair: Stand By Assist Gait: Device:none Assistance: Stand By Assist Distance: 75 FT in room Deviations: decreased awareness of environmental surroundings, able to pick items up from the floorwith SBA Balance: Static Sitting: good Dynamic sitting: good Static Standing: good Dynamic Standing: good minus Vitals: No signs or symptoms of distress Activity Tolerance: Patient's activity tolerance: good Modified [place] Score: Current Modified [place] Score: 4 Treatment/therapeutic Exercise: session focused on bed mobility, sitting balance, sit<->stand, transfer training, gait training EDUCATION: While performing PT, Patient was instructed in:Functional mobility training/weight bearing status Patient demonstrated Poor understanding of instructions given. GOALS: Short Term Goals: Goal Formation?Patient unable to participate in goal formulation Patient will perform bed mobility:??Stand By Assist - MET (09/07/21) Patient will transfer sit to/from stand: Independent (updated 09/07/21) Patient will transfer bed to/from chair:??Independent (updated 09/07/21) Patient will ambulate 100 feet with Independent (updated 09/07/21) ?? Fdc Goal(s): Patient to discharge to appropriate next level of inpatient care ?? Update Treatment Plan: patient is progressing toward all goals; continue per POC If patient is discharged from the facility, this note serves as a discharge note if further physical therapy visits did not occur. Following therapy session, patient left in bed and with call light within reach. * Arnie Chand - 09/07/2021 2:48 PM CDT Social Work Progress Note Discharge Plan Disposition: SW attended Floor Rounds at 2pm; Team is working on a transfer to [facility] as a secondary option if there is no accepting facility. SW continues to pursue SNF. [facility] willprovide an update on the status of the referral submitted today. Continued Care and Services - Admitted Since 08/24/2021 Destination Service Provider Request Status Selected Services Address Phone Fax Patient Preferred [facility] Pending - Request Sent N/A [address] [facility] [address] -- Current Capacity last updated by Katia Gonzalez on 02/01/2021 1242 BEDS AVAILABLE!! Let me know if you need anything :Katia Lamb [phone] [facility] Pending - Request Sent N/A [address] [facility] [address] -- [facility]ERR[facility] Pending - Request Sent N/A [address] [facility] [phone] -- [facility] Pending - Request Sent N/A [address] [facility] [phone] -- [facility] Pending - Request Sent N/A [address] [facility] [address] -- Current Capacity last updated by Marissa Rivera on 08/31/2021 1001 We currently have (2) Short-Stay Rehabilitation Beds Available. , , We will accept 10-day Post-COVID. , UHC, Essence, AETNA, Medicare and Active-Medicaid. , , Please call Marissa with any questions or for additional information. [facility] Pending - Request Sent N/A [address] [facility] [phone] -- [facility] Pending - Request Sent N/A [address] [facility] [address] -- Internal Comment last updated by Bibi Hill, RN 09/01/2021 0938 admit coordinator, reports no male beds currently but will let us know if one opens up [facility] Pending - Request Sent N/A [address] [facility] [address] -- Internal Comment last updated by Arnie Chand 09/07/2021 0853 09/07/2021 SW contacted facility; Ed will f/u with Admission Director to confirm referral was received. Arnie Chand 09/07/2021 8:51 AM [facility] Pending - Request Sent N/A [address] [facility] [address] [phone] -- [facility] Pending - Request Sent N/A [address] [place] [phone] -- Internal Comment last updated by Arnie Chand 09/07/2021 0849 09/07/2021 SANTINO contacted facility; Nuria requested the fax to be resubmitted. SW resent and will await f/u. Arnie Chand 09/07/2021 8:44 AM [facility] Pending - Request Sent N/A [address] [facility] [address] [phone] -- Internal Comment last updated by Arnie Chand 09/07/2021 1448 09/07/2021 SANTINO contacted facility to request status update on referral; SANTINO left message requesting a returned call. Arnie Chand 09/07/2021 8:41 AM 09/07/2021 Deven indicated that referral was not received via [employer]; SANTINO resubmitted fax and answered questions. Deven will f/u with status. Arnie Chand 09/07/2021 10:40 AM 09/07/2021 SANTINO spoke w/ Emi who confirmed receipt of referral. Update on referral status will be provided by 09/08 morning. Arnie Chand 09/07/2021 2:48 PM [facility] Pending - Request Sent N/A [address] [facility] [address] -- [facility] Pending - Request Sent N/A [address] [facility] [address] -- Internal Comment last updated by Arnie Chand 09/07/2021 0844 09/05/2021 SANTINO spoke with Tresa (Admissions) who indicated she did not receive referral. If Pt is possible long-term, facility will convert his primary insurance. SANTION faxed referral to [phone] and confirmed Pt is vaccinated. Tresa will f/u with SANTINO after referral is reviewed. Arnie Chand 09/05/2021 11:01 AM 09/07/2021 SANTINO left message for Tresa (ext [phone]) for a referral status. Arnie Chand 09/07/2021 8:42 AM [facility] Pending - Request Sent N/A [address] [facility] [address] [phone] -- [facility] Pending - Request Sent N/A [address] [facility] [facility] [address] [phone] -- [facility] Pending - Request Sent N/A [address] [facility] [phone] -- [facility] Pending - Request Sent N/A [address] [place] [address] [phone] -- Internal Comment last updated by Arnie Chand 09/05/2021 1041 09/05/2021 SW contacted facility to request referral status; SW left message for Admissions. Arnie Chand 09/05/2021 10:39 AM [facility] Pending - Request Sent N/A [address] [facility] [facility] [address] [phone] -- Internal Comment last updated by Arnie Chand 09/07/2021 0856 09/05/2021 SW contacted facility to request update on referral submitted; VM left. Arnie Chand 09/05/2021 10:42 AM 09/07/2021 SW contacted facility for referral status; Left SRINIVAS. Arnie Chadn 09/07/2021 8:56 AM [facility] Pending - Request Sent N/A [address] [address] [phone] -- Internal Comment last updated by Bibi Hill, RN 09/02/2021 1313 Left message 09/02 for admissions [facility] Declined History of violence and/or drug/alcohol abuse N/A [address] [facility] [id number] -- Current Capacity last updated by Ching Reyna on 05/13/2021 1316 Cedricjeff Hurtado has several semi or private rooms available for female or male residents. We have just opened our short term wing again, they are all private rooms. We take Medicare, Medicaid, Medicaid pending, Aetna, and [facility]. [facility] Declined Facility cannot provide for patient's needs N/A [address] [facility] [phone] -- [facility] Declined No contract with patient's insurance carrier N/A [address] [facility] [phone] -- [facility] Declined Facility cannot provide for patient's needs N/A [address] [facility] [address] [phone] -- [facility] Declined Suicidal risk N/A [address] [facility] [address] [phone] -- Internal Comment last updated by Arnie Chand 09/07/2021 0840 09/05/2021 SW called Admissions to f/u on referral update; Flor Goldman([phone]) was unable to locate the referral during the call and will call SW back when it's located. Arnie Chand 09/05/2021 10:36 AM 09/06/2021 SW spoke with Flor ([phone]) for referral update; Indicated she did not receive the fax; SANTINO resubmitted fax for review. Arnie Chand 09/06/2021 8:55 AM 09/07/2021 SW contacted Flor to inquire about the status of referral; Pt declined due to danger to self. Arnie Chand 09/07/2021 8:37 AM [facility] Declined Facility cannot provide for patient's needs, History of violence and/or drug/alcohol abuse, Cannot meet patient's psychosocial needs N/A [address] [facility] [facility] [address] [phone] -- Internal Comment last updated by Arnie Chand 09/05/2021 1055 09/05/2021 SW contacted facility to request referral status; Lamar (Admission) denied Pt due to psych services/poly substance and facility is primary geriatric. Arnie Chand 09/05/2021 10:55 AM [facility] Declined Facility cannot provide for patient's needs N/A [address], [facility] [address] [phone] -- [facility] Declined No contract with patient's insurance carrier N/A [address] [facility] [facility] [phone] -- [facility] Declined Facility cannot provide for patient's needs N/A [address] [place] [address] [phone] -- Transportation (if ambulance rationale): Transportation at discharge: (jennifer determined by disposition) Anticipated Discharge Date: Anticipated Discharge Date: 09/12/21 PIPER Dumont MBA Anodizing Line Operator [phone] 09/07/2021 2:50 PM * Sofya Sutherland OT - 09/07/2021 1:12 PM CDT [facility] Physical Medicine and Rehabilitation Occupational Therapy Progress Note Patient: Chester Dubose Jr. Med Record Number: [id number] Date of : 1970 Age: [age] year old Face Mask: donned mask, eyewear, and gown. Tech: n/a Discharge Recommendation: Patient will benefit from multidisciplinary inpatient therapies. Precautions: Subjective: I like to shower 3 times a day if I can. At start of therapy session, patient found in bed and with no alarm. Pain: Patient has 0/10 pain Follow-up for pain: No follow-up for pain indicated and patient agreed to proceed with treatment Activities of Daily Living Feeding:NT Grooming/Bathing: Stand By Assist to wash face and complete [facility] care [facility]. Upper Extremity Dressing: Stand By Assist to don gown Lower Extremity Dressing: Stand By Assist to don socks Toileting/Transfers: not tested declines need Mobility: Assist device: none Rolling: not tested Supine to/from Sit:Independent Sit to/from Stand: Stand By Assist Bed to/from Chair: not tested Functional Mobility: From bed to bathroom and back with Stand By Assist Splint Issued/Checked: none Splint Check Completed: n/a Balance: Static Sitting: good Dynamic Sitting: good Static Standing: good Dynamic Standing: good Observations: VSS throughout; no signs of distress noted. Activity tolerance: fair Modified Everardo Score: 3 Current Modified Everardo Score: 4 Cognitive/Perceptual: A&Ox self; pt is tangential in conversation throughout session. Requires frequent cuing for redirection to task. Demo's poor insight and safety awareness. Follows 100% commands. Treatment/Therapeutic Exercise: Treatment session this date focused on ADL training Cognitive retraining Functional transfer training Endurance training Bed mobility Safety awareness EDUCATION: While performing mobility and self care, Patient was instructed in: Functional mobility training/weight bearing status, Cognitive retraining, Safety awareness/fall precaution and Self care training Presented to patient who demonstrates Questionable understanding of instructions given. Equipment Issued: none Update Treatment Plan/Goals : continue plan of care Short Term Goals: Patient will increason orientation to?person, place, time and situation Patient will perform eating?In chair and Independently Patient will perform grooming?Standing at sink and With min assist Patient will perform lower extremity dressing?At edge of bed and Independently Patient will perform bed to chair?With min assist Fdc Goal:Patient to discharge to appropriate next level of inpatient care If patient is discharged from the facility, this note serves as a discharge note if further occupational therapy visits did not occur. Following therapy session, patient left in bed, with call light within reach and with RNCori aware. * Debi Valle - 09/07/2021 11:12 AM CDT [facility] Cognitive Evaluation Patient: Chester Dubose . Med Record Number: [id number] Date of : 1970 Age: [age] year old In addition to the 1:1 evaluation of the patient, additional eval time was spent completing the chart review prior to the assessment, completing the multidisciplinary plan of care and education plan post evaluation and communicating results of the eval to other treatment team members. PPE: PPE donned by MANAGER MARKETING during this session - N95 mask, gown, eye protection and gloves. 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 Pt was initially administered the SLUMS however, pt required frequent redirections, and exhibited difficulty following directions and engaging in assessment. Jargon and difficulty making a coherent thoughts was exhibited throughout the visit. Speech was 60% intelligible due to difficulty understanding context, mumbling utterances and jargon. MANAGER MARKETING recommends speech, language, and cog-com services at this time. Discharge Recommendations: Patient will benefit from inpatient multidisciplinary therapies Speech therapy is recommended to improve speech, language, and cognitive function. Subjective: Mental Status: Confused Patient Goals:Pt was agreeable to participating in assessment Pain: Patient reported no pain Objective: Cognitive-Linguistic Assessment: Patient completed the [facility] Mental Status ([facility])Examination with the following results: Orientation: 0/3 Math Reasoning: Not assessed Fluency Namin/3 Delayed Recall: Not assessed Working Memory: 0/3 Clock Drawing Task: Not assessed Visual spatial: Not assessed Paragraph Recall: Not assessed Scoring ??? High School Education: 27-30=Normal, 21-26= MNDC*, 1-20=Dementia. ??? Less than High School Education: 25-30=Normal, 20=24=MNCD*,1-19=Dementia. * Mild Neurocognitive Disorder Assessment: Upon arrival and initiation of [facility] assessment, pt perseverated on various numbers (I.e. 77, 121, 2971, 1971) after being asked his birthday. Perseveration's on numbers (recited by the year 1975 ) continued throughout the visit and was used as the pts response for all orientation questions. Pt was asked to name animals for the fluency naming task and pt was observed to answer with mice, rey, [birth year], 1976 . MANAGER MARKETING obtained data of simple Y/N questions and object naming. Both of these tasks resultedin <60% accuracy and required frequent redirecting throughout the task. Word finding difficulty was noted throughout the visit (I.e., it's steamy when pt was trying to explain that it was overcast outside). Phonemic and semantic paraphasias were also noted throughout discourse. 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 but would soon continue toexpress incoherent thoughts (I.e. banana shops, you put the plastic..1967 ) and neglect his communication partner. It should be noted that this pt is not a candidate for a formal language or cognition assessment. Behavioral: Cooperative Cognitive-Communication: Decreased Severe Education: Patient instructed in recommedations and indicated understanding. Goals: Short Term Goals: Patient to demonstrate no clinical signs/symptoms of aspiration or difficulty swallowing with recommended diet. Fdc Goals: Patient to be independent/baseline with speech/language/cognitive/swallowing to beable to safely discharge to prior level of care. If patient is discharged from the facility, this note serves as a discharge note if further speech therapy visits did not occur. Debi Valle B.A. Speech Language Pathology Student * Sonia Arevalo MD - 09/07/2021 10:33 AM CDT Images from the original note were not included. Stroke Service Daily Progress Note Chester Dubose Jr. Age: [age] year old Date of : 1970 Date of Admission: 08/24/2021 Hospital Day: 14 Subjective Interval History: Yesterday evening when sister was visiting patient became agitated and began yelling and received 5mg haldol IM. Patient afterwards slept and was calmer this morning, he denied having suicidal ideations, hallucinations and more cooperative with nursing staff. ?? Hospital Course: Chester Dubose Jr.??is a 51 year old??male??with a history of bipolar disorder, polysubstance abuse, and alcoholic cirrhosis who was transferred from OSH on 08/24 for management of IPH. Prior to admission reported to have ingested a bottle of crystal meth (~1g) in a suicide attempt. He then developed seizure like activity and taken to OSH where he was given 10 mg of ativan and 1g Keppra. He was intubated for airway protection. CTH there showed IPH in the left parietal occipital area and was transferred to [facility] for further management. On [facility] arrival NIHSS was 20 and CTH showed known hemorrhage. CTA was negative for spot sign, and ICH score was 2 on arrival (due to GCS). He was started on davion ardipine ggt, given additional 3g Keppra, and admitted to the neuro ICU for further monitoring. ?? He was started on cEEG monitoring due to seizure activity.??MRI was done showing no underlying mass. He developed MRSA pneumonia and was treated with antibiotics. He was extubated on 08/30 successfully. Psychiatry consulted due to presentation with suicidal ideation. Changed keppra to vimpat as per recommendation of psych. On 09/04 he was agitated and received zyprexa. In the morning he wasactively suicidal and mention that I want to . He said he also has aplan but refused to share it with nurse??and MD. For his agitation zyprexa was replaced with halodol as per psych recs.?Psychiatry team continues helping with manegment Patient is on suicide precautions ?? Objective Patient Vitals for the past 24 hrs: BP Temp Temp src Pulse Resp SpO2 09/07/21 0800 119/75 97.7 ??F (36.5 ??C) Oral 88 19 96 % 09/07/21 0414 99/45 97.8 ??F (36.6 ??C) Oral 86 20 97 % 09/07/21 0009 125/50 97.6 ??F (36.4 ??C) Oral 88 20 96 % 09/06/212004 108/53 98.9 ??F (37.2 ??C) Oral 97 20 96 % 09/06/21 1602 130/76 98.9 ??F (37.2 ??C) Oral 95 20 98 % Intake/Output Summary (Last 24 hours) at 09/07/2021 1033 Last data filed at 09/07/2021 0800 Gross per 24 hour Intake 580 ml Output -- Net 580 ml Exam: Cortical Function Mental Status Awake, alert, follows commands Orientation Person Language Fluency intact, comprehension intact, repetition impaired Visual Nichols Intact bilaterally to confrontation Neglect No visual neglect noted, no tactile neglect noted Cranial Nerves II Pupils 3 mm and bilaterally reactive to light. Fundoscopic exam not performed. VIII Hearing is intact bilaterally to finger rub. III/IV/ Extraocular muscles intact. No diplopia, ptosis, nystagmus or convergence abnormalities noted. IX/X Palate elevated symmetrically without phonation abnormalities noted. V Facial sensation symmetric to light touch and intact bilaterally. Corneal reflex not examined. XIHead turning and shoulder shrug are intact. VII No facial palsy noted. XII Tongue is midline with normal movements and no atrophy noted. Motor Function Movement No abnormalities noted Bulk No abnormalities noted Tone No abnormalities noted Proximal Upper Distal Upper Proximal Lower Distal Lower Right 5/5 5/5 5/5 5/5 Left 5/5 5/5 4/5 4/5 Muscle Stretch Reflexes BI TRI BR PAT ACH TOES Right 2 2 2 2 2 Down Left 2 2 2 2 2 Down Sensory Light Touch Symmetric and intact bilaterally Noxious Stimuli Symmetric and intact bilaterally Temperature Not tested Pallesthesia Not tested Cerebellar FNF ROSA ISELA HKS Right Intact Deferred Intact Left Intact Deferred Intact Gait Small steps and cautious walking Imaging: ?? Labs: Reviewed. Assessment Chester Morgan Sderick Manuel??is a 51 year old??male??presenting for management of IPH in the setting of methamphetamine use and hypertensive emergency. ?? Stroke Type:??Hemorrhagic Stroke Mechanism:??HTN (drug induced) Plan ?? #Left Partieto-Occiptial IPH - ICH score of 2 on arrival?? - MRI brain done 08/27 without underlying mass, will need repeat MRI in a few months outpatient - No additional stroke workup pending - Na goal: normonatremia - SBP goal <140 ?? - q4h neurochecks?? - avoid antiplatelets and anticoagulation - Will try to transfer to [address] [place] [address] while waiting for disposition ?? #Active SI, resolved - psych consulted and informed about active SI - will appreciate their recs - continuous observation with sitter, discontinued 09/06 AM as patient improving - suicide precautions - halodol for agitation and psychosis as per psych - monitor with daily EKG ?? #Seizure Activity - Likely provoked 2/2 drug use - cEEG with rare left frontal/fronto-central epileptiform discharges, discontinued - Continue Vimpat 100 mg BID ?? #Acute Encephalopathy, improving - 2/2 ICU delirium, underlying infection, stroke, etc - Seroquel 100 mg BID - Melatonin qhs - Delirium precautions ?? #Polysubstance Abuse #Suicidial Ideation #Bipolar Disorder - UDS on admission positive for amphetamines and methamphetamines - ETOH level neg on admission, although unsure if drinking prior to admission - Due to stroke doubt degree to which he can be a harm to himself - Psychiatry ?? #HTN Emergency, resolved - SBP goal <140 - PRN hydralazine and labetolol for SBP >140 ??TTE (08/25) with EF of 76%?- Hemodynamic monitoring - Maintain MAP ~ 65 ?? 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 #Urinary Retention, resolved - Delirium and stroke likely contributing - Continue with home tamsulosin - Monitor intake and output - Replete electrolytes as needed - urinary cath, removed ?? #Thrombocytopenia - Likely 2/2 liver disease - Transfuse for platelets <50K ?? #MRSA PNA - Sputum positive from 08/27 - On linezolid q12 hours (EOT 09/03) - Monitor for fevers - Clay culture if febrile Case findings discussed with Dr. Arevalo, Stroke Attending/Endovascular Fellow Sonia Arevalo MD Neurology Resident Associated attestation - Valdo Arevalo MD - 09/07/2021 5:30 PM CDT I have seen and examined the patient with the resident and I agree with the findings and plan of care as documented by the resident with additions and modifications as listed in my separate note. Date of Service: 09/07/21. Valdo Arevalo MD * Arnie Chand - 09/07/2021 8:54 AM CDT Social Work Progress Note Discharge Plan Disposition: SW reviewed Pt's chart and attended Stroke Rounds. All stroke evaluations have been completed. Pt is medically ready to discharge to an accepting facility. SW contacted facilities for updates on referrals. No accepting facility at this time. SW will continue to follow and assist with disposition needs. Continued Care and Services - Admitted Since 08/24/2021 Destination Service Provider Request Status Selected Services Address Phone Fax Patient Preferred [facility] Pending - Request Sent N/A [address] [facility] [address] -- Current Capacity last updated by Katia Gonzalez on 02/01/2021 1242 BEDS AVAILABLE!! Let me know if you need anything :) Katia [phone] [facility] Pending - Request Sent N/A [address] [facility] [address] -- [facility] Pending - Request Sent N/A [address] [facility] [address] [phone] -- [facility] Pending - Request Sent N/A [address] [facility] [address] -- [facility] ([facility]) Pending - Request Sent N/A [address] [facility] [address] -- Current Capacity last updated by Marissa Rivera on 08/31/2021 1001 We currently have (2) Short-Stay Rehabilitation Beds Available. , , We will accept 10-day Post-COVID. , C, Essence, AETNA, Medicare and Active-Medicaid. , , Please call Marissa with any questions or for additional information. [facility] Pending - Request Sent N/A [address] [facility] [address] -- [facility] Pending - Request Sent N/A [address] [facility] [address] -- Internal Comment last updated by Bibi Hill, RN 09/01/2021 0938 admit coordinator, reports no male beds currently but will let us know if one opens up [facility] Pending - Request Sent N/A [address] [place] [address] -- Internal Comment last updated by Arnie Chand 09/07/2021 0853 09/07/2021 SW contacted facility; Ed will f/u with Admission Director to confirm referral was received. Arnie Chand 09/07/2021 8:51 AM [facility] Pending - Request Sent N/A [address] [facility] [address] [phone] -- [facility] Pending - Request Sent N/A [address] [place] [phone] -- Internal Comment last updated by Arnie Chand 09/07/2021 0849 09/07/2021 SANTINO contacted facility; Nuria requested the fax to be resubmitted. SANTINO resent and will await f/u. Arnie Chand 09/07/2021 8:44 AM [facility] Pending - Request Sent N/A [address] [facility] [address] [phone] -- Internal Comment last updated by Arnie Chand 09/07/2021 1041 09/07/2021 SANTINO contacted facility to request status update on referral; SANTINO left message requesting a returned call. Arnie Chand 09/07/2021 8:41 AM 09/07/2021 Deven indicated that referral was not received via [employer]; SANTINO resubmitted fax and answered questions. Deven will f/u with status. Arnie Chand 09/07/2021 10:40 AM [facility] Pending - Request Sent N/A [address] [facility] [address] [phone] -- [facility] Pending - Request Sent N/A [address], [place] [address] -- Internal Comment last updated by Arnie Chand 09/07/2021 0844 09/05/2021 SW spoke with Tresa (Admissions) who indicated she did not receive referral. If Pt is possible long-term, facility will convert his primary insurance. SANTINO faxed referral to [phone] and confirmed Pt is vaccinated. Tresa will f/u with SANTINO after referral is reviewed. Arnie Chand 09/05/2021 11:01 AM 09/07/2021 SW left message for Tresa (ext [phone]) for a referral status. Arnie Chand 09/07/2021 8:42 AM [facility] Pending - Request Sent N/A [address] [facility] [address] [facility] [address] -- [facility] Pending - Request Sent N/A [address] [facility] [address] -- [facility] Pending - Request Sent N/A [address] [address] [facility] [phone] -- [facility] Pending - Request Sent N/A [address] [place] [address] [phone] -- Internal Comment last updated by Arnie Chand 09/05/2021 1041 09/05/2021 SW contacted facility to request referral status; SW left message for Admissions. Arnie Chand 09/05/2021 10:39 AM [facility] Pending - Request Sent N/A [address] [place] [address] [phone] -- Internal Comment last updated by Arnie Chand 09/07/2021 0856 09/05/2021 SANTINO contacted facility to request update on referral submitted; VM left. Arnie Chand 09/05/2021 10:42 AM 09/07/2021 SW contacted facility for referral status; Left VM. Arnie Chand 09/07/2021 8:56 AM [facility] Pending - Request Sent N/A [address] [address] [phone] -- Internal Comment last updated by Bibi Hill RN 09/02/2021 1313 Left message 09/02 for admissions [facility] Declined History of violence and/or drug/alcohol abuse N/A [address] [facility] [phone] -- Current Capacity last updated by Ching Reyna on 05/13/2021 1316 [facility] has several semi or private rooms available for female or male residents. We have just opened our short term wing again, they are all private rooms. We take Medicare, Medicaid, Medicaid pending, Aetna, and [facility]. [facility] Declined Facility cannot provide for patient's needs N/A [address] [facility] [phone] -- [facility] Declined No contract with patient's insurance carrier N/A [address] [facility] [phone] -- [facility] Declined Facility cannot provide for patient's needs N/A [address] [facility] [address] [phone] -- [facility] Declined Suicidal risk N/A [address] [facility] [address] [phone] -- Internal Comment last updated by Arnie Chand 09/07/2021 0840 09/05/2021 SW called Admissions to f/u on referral update; Flor Goldman([phone]) was unable to locate the referral during the call and will call SW back when it's located. Arnie Chand 09/05/2021 10:36 AM 09/06/2021 SW spoke with Flor ([phone]) for referral update; Indicated she did not receive the fax; SANTINO resubmitted fax for review. Arnie Chand 09/06/2021 8:55 AM 09/07/2021 SW contacted Flor to inquire about the status of referral; Pt declined due to danger to self. Arnie Chand 09/07/2021 8:37 AM [facility] Declined Facility cannot provide for patient's needs, History of violence and/or drug/alcohol abuse, Cannot meet patient's psychosocial needs N/A [address] [facility] [address] -- Internal Comment last updated by Arnie Chand 09/05/2021 1055 09/05/2021 SANTINO contacted facility to request referral status; Lamar (Admission) denied Pt due to psych services/poly substance and facility is primary geriatric. Arnie Chand 09/05/2021 10:55 AM [facility] Declined Facility cannot provide for patient's needs N/A [address] [facility] [address] -- [facility] Declined No contract with patient's insurance carrier N/A [address] [facility] [phone] -- [facility] Declined Facility cannot provide for patient's needs N/A [address] [place] [address] [phone] -- Transportation (if ambulance rationale): Transportation at discharge: (jennifer determined by disposition) Anticipated Discharge Date: Anticipated Discharge Date: 09/08/21 Contacts: Extended Emergency Contact Information Primary Emergency Contact: Henok Stahl [facility] Mobile Relation: Friend Secondary Emergency Contact: Benson Dubose [facility] Mobile Relation: Sister Mother: tracee dubose Mobile Have they been contacted? PIPER Dumont MBA Anodizing Line Operator [phone] 09/07/2021 8:54 AM * Valdo Arevalo MD - 09/07/2021 8:17 AM CDT Images from the original note were not included. Vascular Neurology Service I saw and examined the patient with the resident. I have verified all details of the residents' note and agree with the residents documentation with additions and modifications as listed in my separate note. The patient is a 51 year old male with history of bipolar disorder, polysubstance abuse and alcoholic cirrhosis who presented with intraparenchymal hemorrhage and suicidal attempt by ingesting a bottle of crystal meth. He developed seizure-like activity and was started on Keppra. Psychiatry consulted. Length of stay: 14 Disposition: SNF Date Estimated to be Medically Ready for Discharge: 09/07/2021 Present on admission problem list Intracerebral bleed POA: Yes Dysphagia POA: Yes Leukocytosis (leucocytosis) POA: Unknown Bipolar 1 disorder POA: Yes Methamphetamine intoxication POA: Yes Antwerp coma scale total score 4 or 5 POA: Yes Seizures POA: Yes Endotracheally intubated POA: Yes Intentional drug overdose POA: Yes Thrombocytopenia, secondary POA: Yes Acute respiratory failure with hypoxia POA: Yes Alcoholic cirrhosis of liver without ascites POA: Yes Coagulopathy POA: Yes Suicide attempt POA: Yes MEDICATIONS FOR CURRENT ENCOUNTER: SCHEDULED MEDICATIONS: 0.9% NaCl injection 3 mL, Intracatheter, q8h heparin injection 5,000 Units, Subcutaneous, q8h lacosamide (Vimpat) tablet 100 mg, Oral, BID lisinopril (Prinivil; Zestril) tablet 10 mg, Oral, QDAY melatonin tablet 6 mg, Oral, AT BEDTIME QUEtiapine (SEROquel) tablet 100 mg, Oral, BID rifAXIMin (Xifaxan) tablet 550 mg, Oral, BID tamsulosin (Flomax) capsule 0.4 mg, Oral, QDAY ?? [COMPLETED] polyethylene glycol 3350 (Miralax) packet 17 g, Oral, Once ?? CONTINUOUS MEDICATIONS: PRN MEDICATIONS: Or 0.9% NaCl injection 1-10 mL, Intracatheter, PRN acetaminophen (Tylenol) tablet 500 mg, Oral, q4h PRN haloperidol (Haldol) tablet 5 mg, Oral, q6h PRN haloperidol lactate (Haldol) injection 5 mg, Intramuscular, q6h PRN ?? lactulose (Chronulac) solution 20 g, Oral, TID PRN Overnight events: Patient Vitals for the past 24 hrs: Temp Pulse Resp BP 09/07/21 0747 97.7 ??F (36.5 ??C) 88 19 119/75 09/07/21 0414 97.8 ??F (36.6 ??C) 86 20 99/45 09/07/21 0009 97.6 ??F (36.4 ??C) 88 20 125/50 09/06/212004 98.9 ??F (37.2 ??C) 97 20 108/53 09/06/21 1602 98.9 ??F (37.2 ??C) 95 20 130/76 Intake/Output Summary (Last 24 hours) at 09/07/2021 0817 Last data filed at 09/06/2021 1200 Gross per 24 hour Intake 380 ml Output -- Net 380 ml Labs: No results for input(s): CHOL, TRIG, HDL, VLDL, LDL, LDLCALC, LDLDIRECT, CHOLHDL in the last 45908 hours. Recent Labs Component Name 08/26/21 0032 HGBA1C 5.1 Recent Labs Component Name 09/06/21 0146 09/05/21 0122 09/04/21 0203 09/03/21 0206 NA 133* 138 142 143 POTASSIUM 3.8 4.0 3.9 3.8 CL 103 108* 110* 113* CO2 21* 23 25 23 BUN 8 10 12 13 CREATININE 0.63* 0.70* 0.66* 0.75 CALCIUM 7.4* 7.9* 8.2* 7.9* MAGNESIUM 1.6 1.7 1.8 1.8 PHOS 2.4* 2.7* 2.7* 2.8 Recent Labs Component Name 09/06/21 0146 09/05/21 0122 09/04/21 0203 09/03/21 0206 WBC 9.2 8.1 5.1 6.4 HGB 11.0* 11.3* 12.2 11.7* HCT 32.3* 33.1* 36.3 35.0* PLTCOUNT 93* 106* 111* 109* RBC 3.44* 3.56* 3.83* 3.71* Recent Labs Component Name 09/03/21 0206 09/01/21 2313 09/01/21 0001 08/24/21193510/02/18 1610 PT 17.0* 17.4* 17.4* - 15.9* INR 1.4 1.4 1.4 - 1.3 PTT - - - - 36.9 - = values in this interval not displayed. Recent Labs Component Name 08/24/21 2202 08/24/21193510/12/18 1327 10/08/18 0926 10/08/18 0926 10/07/18 0900 10/07/18 0900 PH 7.50* 7.40 7.52* - 7.48* - 7.48* PCO2 27* 36 32* - 34* - 37 PO2 193* 173* 75* - 106* - 118* HCO3 - - 25.6 - 24.9 - 26.6* FIO2 40.0 40.0 21.0 - 40.0 - 40.0 - = values in this interval not displayed. Recent Labs Component Name 08/27/21 1043 08/24/21193510/18/18 0542 10/12/18 0006 10/02/18 2345 10/02/18 2345 AST 50* 79* 84* 105* - 210* ALT 37 46 20 26 - 48 ALKPHOS 100 116 107 103 - 150 TBILI 1.4* 1.5* - 2.8* - 2.2* DBILI - - - 2.0* - 1.2* IBILI - - - 0.8 - 1.0 ALB 2.6* 2.7* - 1.6* - 2.5* - = values in this interval not displayed. No data found. Micro: Microbiology Results (Displays last 21 days for this encounter ONLY) Procedure Component Value - Date/Time CULTURE SPUTUM+GRAM STAIN [[id number]] (Abnormal) (Susceptibility) Collected: 08/27/21 1705 Lab Status: Final result Specimen: Microbiology from Sputum Updated: 08/30/21 0138 Culture Heavy Staphylococcus aureus methicillin-resistant (MRSA) Comment: Staphylococcus aureus methicillin-resistant (MRSA) detected by penicillin binding protein immunoassay. Contact precautions required. Conventional antibiotic susceptibility testing to follow. Light normal oropharyngeal izabella Gram Stain Heavy Gram-positive cocci >= 25 per low power field Polymorphonuclear cells <10 per low power field Squamous epithelial cells Narrative: Methicillin-resistant Staphylococci (MRSA) are resistant to all currently available beta-lactam antibiotics with the exception of the newer cephalosporins with anti-MRSA activity. Contact precautionsrequired. Susceptibility Staphylococcus aureus methicillin-resistant (MRSA) (1) Antibiotic Interpretation Microscan Method Status Clindamycin Susceptible 0.25 ug/mL MANJIT Final Doxycycline Susceptible <=0.5 ug/mL MANJIT Final Gentamicin Susceptible <=0.5 ug/mL MANJIT Final Inducible Clindamycin Resistance Neg NEG ug/mL MANJIT Final Linezolid Susceptible 2 ug/mL MANJIT Final Oxacillin Resistant >=4 ug/mL MANJIT Final Tetracycline Susceptible <=1 ug/mL MANJIT Final Trimethoprim-sulfamethoxazole Susceptible <=10 ug/mL MANJIT Final Vancomycin Susceptible <=0.5 ug/mL MANJIT Final CULTURE BLOOD [[id number]] (Normal) Collected: 08/27/211704 Lab Status: Final result Specimen: Blood Peripheral Updated: 09/01/21 2100 Culture No growth day 5 CULTURE BLOOD [[id number]] (Normal) Collected: 08/27/211704 Lab Status: Final result Specimen: Blood Peripheral Updated: 09/01/21 2100 Culture No growth day 5 Valdo Arevalo MD 8:17 AM * Claudette Esteves - 09/06/2021 7:47 PM CDT EMELY JIMENEZ Lamination Builder responded to a code green in patient's room. Patient seemed agitated. Patient's sister waspresent and speaking to patient's mother on the phone.Patient wanted to talk to his mother about his medications and what he needed to take. Nursing staff was able to de-escalate him enough for medication. Claudette Esteves 09/06/2021 7:50 PM * Loni Rosen RN - 09/06/2021 6:56 PM CDT Pt suddenly came out of the room demanding to leave, cussing at staff, to fuck off, yelling at his sister demanding that we give him this medication that costs at least 60 each pill that he needs to take several times a day, pt got in the sisters face yelling and threatening to his his head into the wall to get out of here pt said he would run off and was getting pushy, pt was able to get Haldol IM and Lactulose * Loni Rosen RN - 09/06/2021 3:05 PM CDT Problem: Pain/Discomfort Goal: Patient exhibits reduced pain/discomfort as evidenced by pain scores Outcome: Progressing Goal: Patient uses pharmacological and non-pharmacological pain management strategies. Outcome: Progressing Goal: Patient verbalizes acceptable level of pain relief and ability to engage in desired activity. Outcome: Progressing Problem: Fall Risk Goal: Fall risk and fall related injury risk are minimized (interventions related to the fall risk can be found in the flowsheet documentation) Outcome: Progressing Problem: Mobility Goal: LTG - Patient will demonstrate safe mobility requirements. Outcome: Progressing * Valdo Arevalo MD - 09/06/2021 2:48 PM CDT Images from the original note were not included. Vascular Neurology Service I saw and examined the patient with the resident. I have verified all details of the residents' note and agree with the residents documentation with additions and modifications as listed in my separate note. The patient is a 51 year old male with history of bipolar disorder, polysubstance abuse and alcoholic cirrhosis who presented with intraparenchymal hemorrhage and suicidal attempt by ingesting a bottle of crystal meth. He developed seizure-like activity and was started on Keppra. Psychiatry consulted. Length of stay: 13 Disposition: SNF Date Estimated to be Medically Ready for Discharge: 09/07/2021 Present on admission problem list Intracerebral bleed POA: Yes Dysphagia POA: Yes Leukocytosis (leucocytosis) POA: Unknown Bipolar 1 disorder POA: Yes Methamphetamine intoxication POA: Yes Antwerp coma scale total score 4 or 5 POA: Yes Seizures POA: Yes Endotracheally intubated POA: Yes Intentional drug overdose POA: Yes Thrombocytopenia, secondary POA: Yes Acute respiratory failure with hypoxia POA: Yes Alcoholic cirrhosis of liver without ascites POA: Yes Coagulopathy POA: Yes Suicide attempt POA: Yes MEDICATIONS FOR CURRENT ENCOUNTER: SCHEDULED MEDICATIONS: 0.9% NaCl injection 3 mL, Intracatheter, q8h heparin injection 5,000 Units, Subcutaneous, q8h lacosamide (Vimpat) tablet 100 mg, Oral, BID lisinopril (Prinivil; Zestril) tablet 10 mg, Oral, QDAY melatonin tablet 6 mg, Oral, AT BEDTIME QUEtiapine (SEROquel) tablet 100 mg, Oral, BID rifAXIMin (Xifaxan) tablet 550 mg, Oral, BID tamsulosin (Flomax) capsule 0.4 mg, Oral, QDAY ?? [COMPLETED] polyethylene glycol 3350 (Miralax) packet 17 g, Oral, Once ?? CONTINUOUS MEDICATIONS: PRN MEDICATIONS: Or 0.9% NaCl injection 1-10 mL, Intracatheter, PRN acetaminophen (Tylenol) tablet 500 mg, Oral, q4h PRN haloperidol (Haldol) tablet 5 mg, Oral, q6h PRN haloperidol lactate (Haldol) injection 5 mg, Intramuscular, q6h PRN ?? lactulose (Chronulac) solution 20 g, Oral, TID PRN Overnight events: Patient Vitals for the past 24 hrs: Temp Pulse Resp BP 09/06/21 0756 98 ??F (36.7 ??C) 95 18 136/73 09/06/21 0325 97.9 ??F (36.6 ??C) 94 18 112/62 09/05/21 2256 98.8 ??F (37.1 ??C) 103 18 143/70 09/05/212010 99.6 ??F (37.6 ??C) 103 18 138/84 09/05/21 1600 98.9 ??F (37.2 ??C) 102 19 156/82 Intake/Output Summary (Last 24 hours) at 09/06/2021 1448 Last data filed at 09/06/2021 0800 Gross per 24 hour Intake 480 ml Output -- Net 480 ml Labs: No results for input(s): CHOL, TRIG, HDL, VLDL, LDL, LDLCALC, LDLDIRECT, CHOLHDL in the last 21376 hours. Recent Labs Component Name 08/26/21 0032 HGBA1C 5.1 Recent Labs Component Name 09/06/21 0146 09/05/21 0122 09/04/21 0203 09/03/21 0206 NA 133* 138 142 143 POTASSIUM 3.8 4.0 3.9 3.8 CL 103 108* 110* 113* CO2 21* 23 25 23 BUN 8 10 12 13 CREATININE 0.63* 0.70* 0.66* 0.75 CALCIUM 7.4* 7.9* 8.2* 7.9* MAGNESIUM 1.6 1.7 1.8 1.8 PHOS 2.4* 2.7* 2.7* 2.8 Recent Labs Component Name 09/06/21 0146 09/05/21 0122 09/04/21 0203 09/03/21 0206 WBC 9.2 8.1 5.1 6.4 HGB 11.0* 11.3* 12.2 11.7* HCT 32.3* 33.1* 36.3 35.0* PLTCOUNT 93* 106* 111* 109* RBC 3.44* 3.56* 3.83* 3.71* Recent Labs Component Name 09/03/21 0206 09/01/21 2313 09/01/21 0001 08/24/21 19310/02/18 1610 PT 17.0* 17.4* 17.4* - 15.9* INR 1.4 1.4 1.4 - 1.3 PTT - - - - 36.9 - = values in this interval not displayed. Recent Labs Component Name 08/24/21220108/24/21 19310/12/18 1327 10/08/18 0926 10/08/18 0926 10/07/18 0900 10/07/18 0900 PH 7.50* 7.40 7.52* - 7.48* - 7.48* PCO2 27* 36 32* - 34* - 37 PO2 193* 173* 75* - 106* - 118* HCO3 - - 25.6 - 24.9 - 26.6* FIO2 40.0 40.0 21.0 - 40.0 - 40.0 - = values in this interval not displayed. Recent Labs Component Name 08/27/21 1043 08/24/21 1936 10/18/18 0542 10/12/18 0006 10/02/18 2345 10/02/18 2345 AST 50* 79* 84* 105* - 210* ALT 37 46 20 26 - 48 ALKPHOS 100 116 107 103 - 150 TBILI 1.4* 1.5* - 2.8* - 2.2* DBILI - - - 2.0* - 1.2* IBILI - - - 0.8 - 1.0 ALB 2.6* 2.7* - 1.6* - 2.5* - = values in this interval not displayed. No data found. Micro: Microbiology Results (Displays last 21 days for this encounter ONLY) Procedure Component Value - Date/Time CULTURE SPUTUM+GRAM STAIN [[id number]] (Abnormal) (Susceptibility) Collected: 08/27/21 1705 Lab Status: Final result Specimen: Microbiology from Sputum Updated: 08/30/21137 Culture Heavy Staphylococcus aureus methicillin-resistant (MRSA) Comment: Staphylococcus aureus methicillin-resistant (MRSA) detected by penicillin binding protein immunoassay. Contact precautions required. Conventional antibiotic susceptibility testing to follow. Light normal oropharyngeal izabella Gram Stain Heavy Gram-positive cocci >= 25 per low power field Polymorphonuclear cells <10 per low power field Squamous epithelial cells Narrative: Methicillin-resistant Staphylococci (MRSA) are resistant to all currently available beta-lactam antibiotics with the exception of the newer cephalosporins with anti-MRSA activity. Contact precautionsrequired. Susceptibility Staphylococcus aureus methicillin-resistant (MRSA) (1) Antibiotic Interpretation Microscan Method Status Clindamycin Susceptible 0.25 ug/mL MANJIT Final Doxycycline Susceptible <=0.5 ug/mL MANJIT Final Gentamicin Susceptible <=0.5 ug/mL MANJIT Final Inducible Clindamycin Resistance Neg NEG ug/mL MANJIT Final Linezolid Susceptible 2 ug/mL MANJIT Final Oxacillin Resistant >=4 ug/mL MANJIT Final Tetracycline Susceptible <=1 ug/mL MANJIT Final Trimethoprim-sulfamethoxazole Susceptible <=10 ug/mL MANJIT Final Vancomycin Susceptible <=0.5 ug/mL MANJIT Final CULTURE BLOOD [[id number]] (Normal) Collected: 08/27/211704 Lab Status: Final result Specimen: Blood Peripheral Updated: 09/01/212099 Culture No growth day 5 CULTURE BLOOD [[id number]] (Normal) Collected: 08/27/211704 Lab Status: Final result Specimen: Blood Peripheral Updated: 09/01/212099 Culture No growth day 5 Valdo Arevalo MD 2:48 PM * Sharon Castellanos, OT - 09/06/2021 1:30 PM CDT [facility] Physical Medicine and Rehabilitation Occupational Therapy Progress Note Patient: Chester Dubose Jr. Med Record Number: [id number] Date of : 1970 Age: [age] year old Face Mask: yes- therapist wore appropriate PPE Tech: no Discharge Recommendation: Patient will benefit from multidisciplinary inpatient therapies. Precautions: Subjective: I will do some with you At start of therapy session, patient found in bed. Pain: Patient has 0/10 pain Follow-up for pain: No follow-up for pain indicated and patient agreed to proceed with treatment Activities of Daily Living Feeding:n/a Grooming/Bathing: Stand By Assist with washing face Upper Extremity Dressing: not tested Lower Extremity Dressing: not tested Toileting/Transfers: Stand By Assist -pt impulsive during treatment and transfers Mobility: Assist device: none Rolling: Stand By Assist Supine to/from Sit:Stand By Assist Sit to/from Stand: Stand By Assist Bed to/from Chair: not tested Functional Mobility: From bed to bathroom and around room with Stand By Assist Splint Issued/Checked: none Splint Check Completed: N/A Balance: Static Sitting: good Dynamic Sitting: good Static Standing: good minus Dynamic Standing: good minus Activity tolerance: fair Modified Everardo Score: 4 Current Modified [place] Score: 4 Cognitive/Perceptual: pt alert Ox1-2 and very tangential during speech. Pt able to answer therapistquestions at times but required multiple redirection. Pt with poor problem solving and reasoning skills as well as decrease safety awareness Treatment/Therapeutic Exercise: Treatment session this date focused on ADL training Functional transfer training Endurance training Safety awareness EDUCATION: While performing mobility, exercise and self care, Patient was instructed in: Functional mobility training/weight bearing status, Safety awareness/fall precaution and Home exercise program Presented to patient who demonstrates Questionable understanding of instructions given. Equipment Issued: none Update Treatment Plan/Goals : Pt continues to benefit from skilled OT to improve independence with activities of daily living, increase strength, endurance, range of motion and decrease pain. Short Term Goals: Patient will increason orientation to person, place, time and situation Patient will perform eating In chair and Independently Patient will perform grooming Standing at sink and With min assist Patient will perform lower extremity dressing At edge of bed and Independently Patient will perform bed to chair With min assist ?? Fdc Goal: Patient to discharge to appropriate next level of inpatient care If patient is discharged from the facility, this note serves as a discharge note if further occupational therapy visits did not occur. Following therapy session, patient left in bed. * Bonnie Callejas, PT - 09/06/2021 12:24 PM CDT [facility] Physical Medicine and Rehabilitation PhysicalTherapy Progress Note Patient: Chester Dubose Jr. Med Record Number: [id number] Date of : 1970 Age: [age] year old Face Mask: proc mask, gloves, isolation gown, protective eyewear Tech: n/a Discharge Recommendation: Patient will benefit from multidisciplinary inpatient therapies. Subjective: I'm ready to get out of bed Agrees to work with PT; requests a drink, states he is thirsty Patient currently using no assistive device. Mental Status: patient is awake, oriented to self only; poor insight/safety awareness; word findingdifficulty; poor use of utensils when eating At start of therapy session, patient found in bed and with no alarm. Pain: Patient has 0/10 pain Follow-up for pain: No follow-up for pain indicated and patient agreed to proceed with treatment Weight Bearing Status: no restrictions Mobility: Rolling: Stand By Assist Supine to Sit:Stand By Assist Sit to Supine: Stand By Assist Sit to Stand:Stand By Assist Bed to Chair: Minimal assist for safety- poor alignment to chair prior to sitting Gait: Device:none Assistance: Stand By Assist Distance: 60 feet x 2 within room Deviations: Narrow base of support, decreased safety awareness, directionnal cues required Balance: Static Sitting: good Dynamic sitting: good Static Standing: good Dynamic Standing: fair Stairs : not tested Vitals: denies dizziness/lightheadedness/SOB during activity; no distress noted Activity Tolerance: Patient's activity tolerance: fair Modified [place] Score: 4 Current Modified [place] Score: 4 Treatment/therapeutic Exercise: bed mobility/transfer training, cognitive re- orientation; gait training, balance training; patient's lunch tray arrived during session- Assisted patient with set up, assist required for use of utensil, with constant cues to scoop food and bring to mouth; transfer training bed to/from chair EDUCATION: While performing PT, Patient was instructed in:Functional mobility training/weight bearing status, Cognitive retraining and Safety awareness/fall precaution Patient demonstrated Questionable understanding of instructions given. GOALS: Short Term Goals: Goal Formation Patient unable to participate in goal formulation Patient will perform bed mobility: Stand By Assist Patient will transfer sit to/from stand: Stand By Assist Patient will transfer bed to/from chair: Stand By Assist Patient will ambulate 100 feet with SBA Fdc Goal(s):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 08/24/2021 Date: 09/04/2021 LOS: 11 SUBJECTIVE Interval History: Overnight he was agitated and received zyprexa. In the morning he wasactively suicidal and mention that I want to . He said he also has a plan but refused to share it with nurse and MD. Was refusing taking medications but agreed with discussion. For his agitation zyprexa was replaced with halodol as per psych recs. He refused for telemetry. Psychiatry team is informed. Patient is on suicideprecautions Hospital Course: Chester Dubose Jr.??is a 51 year old??male??with a history of bipolar disorder, polysubstance abuse, and alcoholic cirrhosis who was transferred from OSH on 08/24 for management of IPH. Prior to admission reported to have ingested a bottle of crystal meth (~1g) in a suicide attempt. He then developed seizure like activity and taken to OSH where he was given 10 mg of ativan and 1g Keppra. He was intubated for airway protection. CTH there showed IPH in the left parietal occipital area and was transferred to [facility] for further management. On [facility] arrival NIHSS was 20 and CTH showed known hemorrhage. CTA was negative for spot sign, and ICH score was 2 on arrival (due to GCS). He was started on davion ardipine ggt, given additional 3g Keppra, and admitted to the neuro ICU for further monitoring. ?? He was started on cEEG monitoring due to seizure activity.??MRI was done showing no underlying mass. He developed MRSA pneumonia and was treated with antibiotics. He was extubated on 08/30 successfully. Psychiatry consulted due to presentation with suicidal ideation. Changed keppra to vimpat as per recommendation of psych. On 09/04 he was agitated and received zyprexa. In the morning he wasactively suicidal and mention that I want to . He said he also has aplan but refused to share it with nurse and MD. For his agitation zyprexa was replaced with halodolas per psych recs. Was refusing taking medications but agreed with discussion. He refused for telemetry. Psychiatry team is informed. Patient is on suicide precautions ?? OBJECTIVE Vital Signs: Vitals: 09/03/21 2325 09/03/21 2345 09/04/21 0235 09/04/21 0947 BP: 149/76 142/78 154/89 146/83 Pulse: 97 (!) 119 Resp: 20 Temp: 97.5 ??F (36.4 ??C) SpO2: 97% 97% Weight: Height: Physical Exam: Con - NAD, afebrile Heent - NCAT, MMM, anicteric Neck - No JVD, LAD, trachea midline CV - RRR for age, normal s1/s2, no m/r/g Pulm - CTAB, no w/r/r Abd - BS+, soft, NTND Cortical Function Mental Status Awake, alert, follows commands Orientation Person Language Fluency intact, comprehension intact Repetition impaired Visual Nichols Intact bilaterally to confrontation Neglect No visual neglect noted, no tactile neglect noted Cranial Nerves II Pupils bilaterally reactive to light. Fundoscopic exam not performed. VIII Hearing is intact bilaterally to finger rub. III/IV/ Extraocular muscles intact. No diplopia, ptosis, nystagmus or convergence abnormalities noted. IX/X Palate elevated symmetrically without phonation abnormalities noted. V Facial sensation symmetric to light touch and intact bilaterally. Corneal reflex not examined. XIHead turning and shoulder shrug are intact. VII No facial palsy noted. XII Tongue is midline with normal movements and no atrophy noted. Motor Function Movement No abnormalities noted Bulk No abnormalities noted Tone No abnormalities noted Proximal Upper Distal Upper Proximal Lower Distal Lower Right 5/5 5/5 5/5 5/5 Left 5/5 5/5 4/5 4/5 Muscle Stretch Reflexes BI TRI BR PAT ACH TOES Right 2 2 2 2 2 Down Left 2 2 2 2 2 Down Sensory Light Touch Symmetric and intact bilaterally Noxious Stimuli Symmetric and intact bilaterally Temperature Not tested Pallesthesia Not tested Cerebellar FNF ROSA ISELA HKS Right Intact Deferred Intact Left Intact Deferred Intact Intake/Output Summary (Last 24 hours) at 09/04/2021 1025 Last data filed at 09/03/2021 2325 Gross per 24 hour Intake 260 ml Output 475 ml Net -215 ml Current Medications: Scheduled: ??? 0.9% NaCl 3 mL Intracatheter q8h ??? heparin 5,000 Units Subcutaneous q8h ??? lacosamide 100 mg Oral BID ??? melatonin 6 mg Oral AT BEDTIME ??? QUEtiapine 100 mg Oral BID ??? rifAXIMin 550 mg Oral BID ??? tamsulosin 0.4 mg Oral QDAY Continuous: PRN: ??? SALINE LOCK, INSERT AND MAINTAIN AND 0.9% NaCl AND 0.9% NaCl ??? acetaminophen ??? haloperidol OR haloperidol lactate ??? lactulose Significant Lab Results: Recent Labs Component Name 09/04/21 0203 09/03/21 0206 09/01/21 2313 WBC 5.1 6.4 7.8 HGB 12.2 11.7* 12.6 HCT 36.3 35.0* 36.3 MCV 94.8 94.3 91.0 Recent Labs Component Name 09/04/21 0203 09/03/21 0206 09/01/21 2313 CALCIUM 8.2* 7.9* 7.6* PHOS 2.7* 2.8 4.0 Recent Labs Component Name 09/04/21 0203 09/03/21 0206 09/01/21 2313 NA 142 143 142 CL 110* 113* 111* CO2 25 23 23 BUN 12 13 15 CREATININE 0.66* 0.75 0.79 Recent Labs Component Name 08/27/21 1043 08/24/21 1936 10/18/18 0542 10/12/18 0006 10/02/18 2345 10/02/18 2345 PROT 6.2 5.9* - 5.0* - 6.2 ALB 2.6* 2.7* - 1.6* - 2.5* ALKPHOS 100 116 107 103 - 150 AST 50* 79* 84* 105* - 210* ALT 37 46 20 26 - 48 TBILI 1.4* 1.5* - 2.8* - 2.2* DBILI - - - 2.0* - 1.2* - = values in this interval not displayed. Recent Labs Component Name 09/03/21 0206 09/01/21 2313 09/01/21 0001 08/24/21 1936 10/02/18 1610 PT 17.0* 17.4* 17.4* - 15.9* INR 1.4 1.4 1.4 - 1.3 PTT - - - - 36.9 - = values in this interval not displayed. Recent Labs Component Name 08/25/21 0420 08/24/21 2202 08/24/211935 CKTOTAL - - 409* TROPONINI <0.010 0.014 0.010 Microbiology: Microbiology Results (Displays last 21 days for this encounter ONLY) Procedure Component Value - Date/Time CULTURE SPUTUM+GRAM STAIN [[id number]] (Abnormal) (Susceptibility) Collected: 08/27/211704 Lab Status: Final result Specimen: Microbiology from Sputum Updated: 08/30/21 013 Culture Heavy Staphylococcus aureus methicillin-resistant (MRSA) Comment: Staphylococcus aureus methicillin-resistant (MRSA) detected by penicillin binding protein immunoassay. Contact precautions required. Conventional antibiotic susceptibility testing to follow. Light normal oropharyngeal izabella Gram Stain Heavy Gram-positive cocci >= 25 per low power field Polymorphonuclear cells <10 per low power field Squamous epithelial cells Narrative: Methicillin-resistant Staphylococci (MRSA) are resistant to all currently available beta-lactam antibiotics with the exception of the newer cephalosporins with anti-MRSA activity. Contact precautionsrequired. Susceptibility Staphylococcus aureus methicillin-resistant (MRSA) (1) Antibiotic Interpretation Microscan Method Status Clindamycin Susceptible 0.25 ug/mL MANJIT Final Doxycycline Susceptible <=0.5 ug/mL MANJIT Final Gentamicin Susceptible <=0.5 ug/mL MANJIT Final Inducible Clindamycin Resistance Neg NEG ug/mL MANJIT Final Linezolid Susceptible 2 ug/mL MANJIT Final Oxacillin Resistant >=4 ug/mL MANJIT Final Tetracycline Susceptible <=1 ug/mL MANJIT Final Trimethoprim-sulfamethoxazole Susceptible <=10 ug/mL MANJIT Final Vancomycin Susceptible <=0.5 ug/mL MANJIT Final CULTURE BLOOD [[id number]] (Normal) Collected: 08/27/211704 Lab Status: Final result Specimen: Blood Peripheral Updated: 09/01/212099 Culture No growth day 5 CULTURE BLOOD [[id number]] (Normal) Collected: 08/27/21 1705 Lab Status: Final result Specimen: Blood Peripheral Updated: 09/01/21 2100 Culture No growth day 5 Imaging & Studies: No results found. ASSESSMENT & PLAN Chester Dubose Jr.??is a 51 year old??male??presenting for management of IPH in the setting of methamphetamine use and hypertensive emergency. ?? Stroke Type:??Hemorrhagic Stroke Mechanism:??HTN (drug induced) #Left Partieto-Occiptial IPH - ICH score of 2 on arrival?? - MRI brain done 08/27 without underlying mass, will need repeat MRI in a few months outpatient - No additional stroke workup pending - Na goal: normonatremia - SBP goal <140 ?? - q4h neurochecks?? -??Neuroprotective measures: head of bed > 30??, avoid hypoglycemia, hyponatremia, and hyperthermia - avoid antiplatelets and anticoagulation #Active SI - psych consulted and informed about active SI - will appreciate their recs - continuous observation with sitter - suicide precautions - halodol for agitation and psychosis as per psych - monitor with daily EKG #Seizure Activity - Likely provoked 2/2 drug use - cEEG with rare left frontal/fronto-central epileptiform discharges, discontinued - Continue Vimpat 100 mg BID #Acute Encephalopathy, improving - 2/2 ICU delirium, underlying infection, stroke, etc - Seroquel 100 mg BID - Melatonin qhs - Delirium precautions #Polysubstance Abuse #Suicidial Ideation #Bipolar Disorder - UDS on admission positive for amphetamines and methamphetamines - ETOH level neg on admission, although unsure if drinking prior to admission - Due to stroke doubt degree to which he can be a harm to himself - Psychiatry #HTN Emergency, resolved - SBP goal <140 - PRN hydralazine and labetolol for SBP >140 ??TTE (08/25) with EF of 76%?- Hemodynamic monitoring - Maintain MAP ~ 65 #Alcholic Cirrhosis - Home medications: lactulose, rifaximin - Continue with home rifaximin - Reduced lactulose to titrate to bowel 1-2 bowel movements PRN - Ammonia wnl - Liver ultrasound (08/26)??with??non-visualization of hepatic veins??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 --- GI consulted, follow up with outpatient tool worker #Urinary Retention - Delirium and stroke likely contributing - Continue with home tamsulosin - Monitor intake and output - Replete electrolytes as needed - urinary cath #Thrombocytopenia - Likely 2/2 liver disease - Transfuse for platelets <50K #MRSA PNA - Sputum positive from 08/27 - On linezolid q12 hours (EOT 09/03) - Monitor for fevers - Clay culture if febrile THIS PROGRESS NOTE IS NOT CONSIDERED FINAL WITHOUT THE ATTESTATION OF ATTENDING PHYSICIAN Shan De La Vega MD PGY-1, Neurology 09/04/2021 10:25 AM Associated attestation - Valdo Arevalo MD - 09/04/2021 11:23 AM CDT I have seen and examined the patient with the resident and I agree with the findings and plan of care as documented by the resident with additions and modifications as listed in my separate note. Date of Service: 09/04/21. Valdo Arevalo MD * Jyoti Noland OT - 09/04/2021 9:00 AM CDT [facility] Department of Physical Medicine & Rehabilitation Progress Note Patient: Chester Dubose Jr. Med Record Number: [id number] Date of : 1970 Age: [age] year old 09/04/21 1100 Missed Visit Missed Visit RN Cancel Per RN, patient agitated and suicidal. Will re-attempt at a later date as appropriate and as schedule allows. * Luiz Jaimes - 09/04/2021 8:55 AM CDT Referral Lamination Builder responded to the Ph. Referral from attending RN, that patient is anxious and could use a visit from PC. Chester is sitting in a couch in his room, covered with comforter. He is talking in a low voice, veryhard to hear what he says. Lamination Builder engaged Chester, who shared that he is not church, but did notmind a visit. He shared about his hard life and mentioned that he has only two beings that he caredfor - his sister and his dog, but his dog . Lamination Builder provided emotional support through pastoral presence and active listening. Reminded to the patient that he can always call upon a fruit stuffer for a visit. Follow up as needed. * Shan De La Vega MD - 09/04/2021 8:49 AM CDT PLAN of CARE Patient is actively suicidal and mention that I want to . He said he also has a plan but refused to share it with nurse and MD. Was refusing taking medications but agreed with discussion. He refused for telemetry. Psychiatry team is informed. Patient is on suicide precautions. Signed: Shan De La Vega MD PGY1 neurology stroke team * Pranay Denson MD - 09/04/2021 8:39 AM CDT [facility] Psychiatry Consult Progress Note Chester Dubose Jr. Age: [age] year old Date of : 1970 On Date of Note: 09/04/2021 Hospital day: Hospital Day: 12 Reason for admission: ingestion and seizures Reason for consult: Concern for suicide attempt Chester Dubose Jr. is a 51 year old white male preseting on 08/24/2021 from OSH with intracerebral hemorrhage. UDS + benzo, amphetamine and expanded UDS + amphetamine, methamphetamine, levetiracetam,midazolam, nicotine. BAL negative. Past psych hx is remarkable for long history of substance use. Has seen psychiatrist in past. Per collateral, history of bipolar disorder and long history of substance abuse including alcohol, meth and marijuana. Per [facility] notes, past suicide attempts plan to cut his left wrist, crushing his bicycle into a truck intentionally, trying to suffocate himself with the plastic bag, and overdosing intentionally. Per mother, behaviors progressively worsened after cirrhosis diagnosis. Hospital course: Reportedly at OSH pt had stated he wanted to kill himself. Also had reported, he had ingested a bottle worth of crystal meth (approximately 1g worth). On presentation to OSH he was mildly altered andthen decompensated, having generalized tonic-clonic seizure, received ativan and keppra. CT showed i ntracerebral bleed. Was intubated and sedated with propofol and versed. Then, transferred to [facility]. On arrival minimally responsive but extending his extremities to noxious stimuli. Loaded with keppra admitted to ICU. Extubated and propofol tapered on 08/30, restless since then. Precedex tapered and di scontinued on 09/01. Seroquel 100mg BID, and melatonin increased to 6mg. Noted to be unable to follow commands due to behaviors. VSS. Switched to PO after speech therapy consult. Subjective: Interval History: Chart review: Patient has been compliant with his Zyprexa 100mg BID. Keppra switched to Vimpat 100mg BID. Emely jimenez called on morning of 09/04/21 as the patient reportedly became agitated and stating I want to but refusing to share if he had a suicide plan. He initially refused his medications but then agreed with discussion. Psychiatry on-call was contacted this morning around 0745 and it was recommended that Zyprexa PRN be switched to Haldol 5mg IM PRN. PRNs: Zyprexa 5mg IM 1909; 304, 0515 Haldol 5mg IM 758 Interview: On interview, patient sitting in bed while eating breakfast in a very disorganized manner includingattempt to eat a plastic cup of butter whole and then spitting it out. He was also noted to be dropping food consistently throughout breakfast which was concerning for his fine motor skills. He was di sorganized in his speech and could not state why he was admitted. He was disoriented to place and time. He reports that he occasionally gets bummed out but denies suicidal ideation. Per nursing, the patient's sister came to visit him yesterday and she confirmed the patient has a long history of schizophrenia and has been off his medications for years. She also stated that she did not believe the patient consuming the methamphetamine prior to admission was a suicide attempt. Medications: Scheduled Medications: ??? 0.9% NaCl 3 mL Intracatheter q8h ??? heparin 5,000 Units Subcutaneous q8h ??? lacosamide 100 mg Oral BID ??? melatonin 6 mg Oral AT BEDTIME ??? QUEtiapine 100 mg Oral BID ??? rifAXIMin 550 mg Oral BID ??? sodium - potassium phosphates 1 tablet Oral Once ??? tamsulosin 0.4 mg Oral QDAY PRN Medications: 0.9% NaCl, 1-10 mL, PRN acetaminophen, 500 mg, q4h PRN haloperidol, 5 mg, q6h PRN Or haloperidol lactate, 5 mg, q6h PRN lactulose, 20 g, TID PRN Allergies: No Known Allergies Mental Status Exam Appearance: White/ male, older than stated age, greyish hair, sitting in bed Eye Contact: good Attitude toward examiner: cooperative Speech: regular rate, mumbled at times, difficult to understand Psychomotor: no psychomotor retardation or agitation noted Gait/Station: unable to assess Mood: okay Affect: restricted Thought Process: associations loose, disorganized and illogical and incoherent Thought Content: denies current SI/HI but reports that he wouldn't mind kicking someone's ass Perception: not seen to be responding to internal stimuli , unable to assess for AVH due to alteredmental status Fund of Knowledge: Below Average Insight: poor Judgement: poor Cognitive Functions: Orientation: person, but not place, time or situation Can complete the following: none completed Attention: limited SLUMS: Deferred Gait and Station: Unable to assess gait and station MSK: Normal Muscle Tone Labs/Investigations: Vitals: Patient Vitals for the past 24 hrs: Temp Pulse Resp BP 09/04/21 0235 -- -- -- 154/89 09/03/21 2345 -- -- -- 142/78 09/03/21 2325 -- 97 20 149/76 09/03/21 2050 -- 84 20 145/49 09/03/21 1610 98.2 ??F (36.8 ??C) -- -- -- 09/03/21 1153 98.2 ??F (36.8 ??C) 92 20 113/53 Allergy: No Known Allergies EKG: Results for orders placed or performed during the hospital encounter of 08/24/21 EKG 12-LEAD Result Value Ref Range Ventricular Rate 84 BPM Atrial Rate 84 BPM P-R Interval 102 ms QRS Duration ms 84 ms Q-T Interval ms 418 ms QTC Calculation (Bezet) 493 ms Calculated P [place] -4 degrees Calculated R [place] 126 degrees Calculated T [place] 127 degrees Interpretation EKG SUSPECT LIMB LEAD REVERSAL SINUS RHYTHM WITH SHORT OH MINIMAL VOLTAGE CRITERIA FOR LVH, MAY BE NORMAL VARIANT ( Sokolow-Calderon ) PROLONGED QT ABNORMAL ECG WHEN COMPARED WITH ECG OF 15-OCT-2018 08:33, SUSPECT LIMB LEADS ARE NOW REVERSED Confirmed by Rod Friedman ([id number]) on 08/27/2021 5:28:48 PM EKG 12-LEAD Result Value Ref Range Ventricular Rate 72 BPM Atrial Rate 72 BPM P-R Interval 150 ms QRS Duration ms 84 ms Q-T Interval ms 376 ms QTC Calculation (Bezet) 411 ms Calculated P [place] 49 degrees Calculated R [place] 57 degrees Calculated T [place] 49 degrees Interpretation EKG NORMAL SINUS RHYTHM NORMAL ECG WHEN COMPARED WITH ECG OF 24-AUG-2021 19:59, LIMB LEAD REVERSAL NO LONGER SEEN Confirmed by MD Mima, Bonnei ([id number]) on 08/28/2021 4:01:54 PM EKG 12-LEAD Result Value Ref Range Ventricular Rate 65 BPM Atrial Rate 65 BPM P-R Interval 148 ms QRS Duration ms 82 ms Q-T Interval ms 400 ms QTC Calculation (Bezet) 416 ms Calculated P [place] 56 degrees Calculated R [place] 68 degrees Calculated T [place] 66 degrees Interpretation EKG NORMAL SINUS RHYTHM NORMAL ECG WHEN COMPARED WITH ECG OF 27-AUG-2021 13:24, NO SIGNIFICANT CHANGE WAS FOUND Confirmed by Rod Friedman ([id number]) on 09/02/2021 3:21:17 PM EKG 12-LEAD Result Value Ref Range Ventricular Rate 67 BPM Atrial Rate 67 BPM P-R Interval 150 ms QRS Duration ms 88 ms Q-T Interval ms 456 ms QTC Calculation (Bezet) 481 ms Calculated P [place] 52 degrees Calculated R [place] 41 degrees Calculated T [place] 49 degrees Interpretation EKG NORMAL SINUS RHYTHM PROLONGED QT ABNORMAL ECG WHEN COMPARED WITH ECG OF 30-AUG-2021 10:04, MANUAL COMPARISON REQUIRED, DATA IS UNCONFIRMED Assessment: Mr. Bae' history and presentation is most congruent with a diagnosis of Delirium due to multiple etiologies, including intraparenchymal hematoma, prolonged substance use, seizures and cirrhosis, but cannot rule out a primary psychosis based on the patient's current presentation in combinationwith his history. Per collateral, he has a long history of substance abuse including alcohol, meth and marijuana, with suicidal gestures/attempts in the past. Furthermore, worsening behaviors after cirrhosis was diagnosed. While hospitalized, patient has been very disorganized, illogical, with psychomotor agitation, and has been largely unable to participate in interview. ?? Lethality: Short term risk of suicide- moderate Risk factors: white male, had reported this was suicide attempt at OSH, prior suicide attempts, polysubstance abuse, psychosocial stressors, medical issues Protective factors: family support, current delirious picture ?? Short term risk of harm to others- moderate Risk factors: verbally threatening, hx of violence, current delirium/AMS. Protective factors: no endorsement of homicidal ideation ?? I have seen and reviewed the available and relevant vital signs, labs, imaging, procedures, EKGs, allergies, and medications. ?? DSM-5 Diagnosis: 1. F05 Delirium due to another medical condition 3. Stimulant use disorder, Methamphetamine type Recommendations: Psychiatric problems: 1. Delirium/agitation Delirium management: Delirium is an acute confusional state with acute changes in attention, cognition, and awareness. It often has a sudden onset and a waxing and waning course. The patient will remain at high risk for delirium due to acute medical conditions. Non-invasive measures to manage these symptoms have been found most effective including - early mobilization - frequent reorientation, by providing clock and calendar with minimal staff changes - maintenance of appropriate sleep/wake cycle: consider scheduling melatonin at 5-6 pm - avoidance of chief engineer's helper lab draws - minimize physical restraints, tubes and drains - address sensory deficits (vision and hearing) - ensure adequate nutrition (Ensure supplements TID between meals if needed) - frequent visits from family members is helpful. - recommend 1:1 sitter with a private room to reduce precipitants of agitation, if indicated - avoid anticholinergic medications (like benadryl), opioids or sedating medications. - benzodiazepines can worsen confusion and should be avoided unless in the setting of withdrawal - ensure regular bowel movements and prevention of constipation with use of a bowel regimen. Ensureno urine retention. -Agitation recommendations: - Per primary, patient currently on Seroquel 100mg BID - Patient responded well to Haldol, Continue Haldol 5mg [id number] PRN PO or IM but has a QTc of 481 - consider decreasing dose of Haldol to 2.5mg to decrease risk of side effects - perform regular EKGs to monitor QTc - Avoid adding additional psychotropics - Consider changing Keppra to alternate AED as keppra is assosiated with agitation in some patients - Continue 1:1 sitter for patient safety ?? Medical problems: 1. Hemmorrhagic Stroke L parietal-occipital??due sympathomimetic drugs 2. Cirrohosis due to alcohol use 3. MRSA sputum 4. thrombocytopenia Legal: Psychiatry C/L will continue to follow Precautions: Precaution Orders Procedures ??? FALL PRECAUTIONS ??? SEIZURE PRECAUTIONS ??? ASPIRATION PRECAUTIONS ??? CONTINUOUS OBSERVATION Disposition: Primary team contacted and recommendations provided. Psychiatry C/L will continue to follow This patient was discussed with psychiatry attending, Dr. Stevens who agrees with the above assessment and plan. Please call if needed urgently. We appreciate the consult. Pranay Denson MD Resident Psychiatrist PGY-1 Department of Psychiatry and Behavioral Neuroscience 09/04/2021 8:40 AM Associated attestation - Lindsey Stevens MD - 09/04/2021 9:32 PM CDT I did not personally evaluate the patient. I discussed the patient with the resident. I agree with the resident's assessment and plan. * Valdo Arevalo MD - 09/04/2021 8:29 AM CDT Images from the original note were not included. Vascular Neurology Service I saw and examined the patient with the resident. I have verified all details of the residents' note and agree with the residents documentation with additions and modifications as listed in my separate note. The patient is a 51 year old male with history of bipolar disorder, polysubstance abuse and alcoholic cirrhosis who presented with intraparenchymal hemorrhage and suicidal attempt by ingesting a bottle of crystal meth. He developed seizure-like activity and was started on Keppra. Psychiatry following. Length of stay: 11 Disposition: SNF Date Estimated to be Medically Ready for Discharge: 09/05/2021 Present on admission problem list Intracerebral bleed POA: Yes Dysphagia POA: Yes Leukocytosis (leucocytosis) POA: Unknown Bipolar 1 disorder POA: Yes Methamphetamine intoxication POA: Yes [place] coma scale total score 4 or 5 POA: Yes Seizures POA: Yes Endotracheally intubated POA: Yes Intentional drug overdose POA: Yes Thrombocytopenia, secondary POA: Yes Acute respiratory failure with hypoxia POA: Yes Alcoholic cirrhosis of liver without ascites POA: Yes Coagulopathy POA: Yes Suicide attempt POA: Yes MEDICATIONS FOR CURRENT ENCOUNTER: SCHEDULED MEDICATIONS: 0.9% NaCl injection 3 mL, Intracatheter, q8h heparin injection 5,000 Units, Subcutaneous, q8h lacosamide (Vimpat) tablet 100 mg, Oral, BID melatonin tablet 6 mg, Oral,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 TROPONINI <0.010 0.014 0.010 MICROBIOLOGY Microbiology Results (Displays last 21 days for this encounter ONLY) Procedure Component Value - Date/Time CULTURE SPUTUM+GRAM STAIN [[id number]] (Abnormal) (Susceptibility) Collected: 08/27/21 1705 Lab Status: Final result Specimen: Microbiology from Sputum Updated: 08/30/21 0138 Culture Heavy Staphylococcus aureus methicillin-resistant (MRSA) Comment: Staphylococcus aureus methicillin-resistant (MRSA) detected by penicillin binding protein immunoassay. Contact precautions required. Conventional antibiotic susceptibility testing to follow. Light normal oropharyngeal izabella Gram Stain Heavy Gram-positive cocci >= 25 per low power field Polymorphonuclear cells <10 per low power field Squamous epithelial cells Narrative: Methicillin-resistant Staphylococci (MRSA) are resistant to all currently available beta-lactam antibiotics with the exception of the newer cephalosporins with anti-MRSA activity. Contact precautionsrequired. Susceptibility Staphylococcus aureus methicillin-resistant (MRSA) (1) Antibiotic Interpretation Microscan Method Status Clindamycin Susceptible 0.25 ug/mL MANJIT Final Doxycycline Susceptible <=0.5 ug/mL MAJNIT Final Gentamicin Susceptible <=0.5 ug/mL MANJIT Final Inducible Clindamycin Resistance Neg NEG ug/mL MANJIT Final Linezolid Susceptible 2 ug/mL MANJIT Final Oxacillin Resistant >=4 ug/mL MANJIT Final Tetracycline Susceptible <=1 ug/mL MANJIT Final Trimethoprim-sulfamethoxazole Susceptible <=10 ug/mL MANJIT Final Vancomycin Susceptible <=0.5 ug/mL MANJIT Final CULTURE BLOOD [[id number]] (Normal) Collected: 08/27/21 170 Lab Status: Preliminary result Specimen: Blood Peripheral Updated: 08/29/21 2100 Culture No growth CULTURE BLOOD [[id number]] (Normal) Collected: 08/27/21 170 Lab Status: Preliminary result Specimen: Blood Peripheral Updated: 08/29/21 2100 Culture No growth IMAGING CXR 08/27/21: Endotracheal tube terminates in the midthoracic trachea. Feeding tube courses below the diaphragm, the tip is off the field of the View. The patient is rotated to the right. ? There are low lung volumes with bronchovascular crowding. No focal consolidation, pleural effusion, or pneumothorax is seen. The cardiomediastinal silhouette is normal. CT chest/abd/pelvis W contrast 08/24/21: 1.No acute finding within the chest. 2.Hepatic cirrhosis with sequela of portal hypertension including splenomegaly and dilated and markedly tortuous splenic vein. 3.A 0.5 cm hyperdense focus in the cecum was not present previously and could represent an ingested object. Medications ??? 0.9% NaCl 3 mL Intracatheter q8h ??? artificial tears Each Eye q8h ??? heparin 5,000 Units Subcutaneous q8h ??? levETIRAcetam 500 mg Enteral Tube BID ??? linezolid 600 mg Intravenous q12h ??? melatonin 3 mg Enteral Tube AT BEDTIME ??? OLANZapine 5 mg Enteral Tube BID ??? rifAXIMin 550 mg Enteral Tube BID ??? tamsulosin 0.4 mg Oral QDAY Continuous Medications dexmedeTOMIDine, 0-1.5 mcg/kg/hr, Last Rate: 0.5 mcg/kg/hr (08/31/21 1308) PRN Medications ??? SALINE LOCK, INSERT AND MAINTAIN AND 0.9% NaCl AND 0.9% NaCl ??? acetaminophen ??? hydrALAZINE ??? labetalol ??? lactulose ASSESSMENT # Intubated for airway protection in setting of acute encephalopathy and tonic clonic seizure, successfully extubated 08/30 # Suicide attempt # MRSA Pneumonia on vanc # MDD/anxiety c/b prior suicide attempts # Substance use (meth, EtOH, cocaine, marijuana) # EtOH Cirrhosis # Tonic clonic seizure RECOMMENDATIONS --patient extubated 08/30 and doing well, currently on room air Thank you for the interesting consult. Pulmonary Medicine will sign off. Please don't hesitate to contact us with questions or concerns. ?? Irma Marie, Pulmonary / Critical Care Fellow Division of Pulmonary, Critical Care, & Sleep Medicine [facility] Associated attestation - Ashutosh Morejon MD - 08/31/2021 3:05 PM CDT Pulmonary Attending Note Care during the described time interval on 08/31/21 was provided by me. I have reviewed this patient's available data, including medical history, events of note, physical examination and test results,and have overseen the activities of the other members of the team under my direct supervision. I agree with the findings and plan of care as documented with the following updates: Patient is a 51 year old male with a PMH of bipolar d/o, substance abuse, & EtOH cirrhosis admitted with intracranial hemorrhage with consult to Pulmonary medicine for vent management. Extubated yesterday. We will sign off. Rest per above. Problem List Acute respiratory failure Intracranial hemorrhage MRSA pneumonia Ashutosh Morejon MD [facility] of Pulmonary & Critical Care Medicine [facility] Pager [phone] * Mariola Oviedo MD - 08/31/2021 1:30 PM CDT Family Notification Documentation Contact made: 08/31/2021 1:30 PM Person(s) contacted: Sister and Mother Method of communication: In-person Duration of discussion: 15 minutes Summary of discussion Family present during morning rounds. Answered all questions and updated plan of care. * Vida Seals - 08/31/2021 1:20 PM CDT Visited with patient, sister Benson and mother Sidra. Benson shared details of her brother's years of mental illness and the family's involvement with his care. She describes her mother as being worn out and she (Benson) has been filling in as often as she can. Benson is relieved knowing that her brother will be discharged to a facility as he can no longer live on his own. She repeatedly addressed the concerns others have had about aggressive behavior and stated that he sometimes verbalizes with aggression but has never been physically aggressive with family in any way. Spoke briefly with Sidra and patient. Assured both of prayers and the ongoing availability of pastoral support. * Arnie Chand - 08/31/2021 11:14 AM CDT Social Work Progress Note Discharge Plan Disposition: SW reviewed Pt's chart and attended Stroke Rounds. Pt has been extubated and plan to be evaluated by PT/OT today. NCM and SW to submit SNF referrals for the anticipated level of care. SANTINOwill continue to follow to assist with disposition needs. Transportation (if ambulance rationale): Transportation at discharge: (jennifer determined by disposition) Anticipated Discharge Date: Anticipated Discharge Date: 09/04/21 Contacts: Extended Emergency Contact Information Primary Emergency Contact: Henok Stahl [facility] Mobile Relation: Friend Secondary Emergency Contact: Benson Dubose [facility] Mobile Relation: Sister Mother: tracee dubose Mobile Have they been contacted? PIPER Dumont [employer] Line Operator [phone] 08/31/2021 11:14 AM * Bibi Hill RN - 08/31/2021 9:21 AM CDT Case Management Progress Note Anticipated level of care at discharge: [facility] - Skilled Facility Discharge Plan: anticipate placement will be needed. Referrals sent. SW following also. Spoke to Benson & Tracee at bedside. They are open to SNFs and understand that we may not find one super close to home. Name: Bibi Hill RN Phone: [phone] * Angelita Gaitan - 08/31/2021 7:38 AM CDT [facility] Psychiatry Consult Progress Note Chester Dubose Jr. Age: [age] year old Date of : 1970 Date of Note: 08/31/2021 Hospital day: Hospital Day: 8 Reason for Admission: neurology consult ID: Chester Dubose is a 51 year old , male with a history of bipolar disorder. Per ED note, he was transferred from OSH for neurology consult. The patient presented to OSH after consuming a bottle of crystal meth. On UDS has was + for meth and Benzos. Psychiatry consult was requested on 08/30. Subjective: Interval Hx: Overnight Events: No events overnight PRNs over the last 24 hours: -Olanzapine (Zyprexa) 2.5 mg for agitation @1542 On interview, unable to evaluate patient due to sedation. Unable to evaluate for suicidal ideation or if incident was suicide attempt. Collateral: Mother: Tracee Dubose Per mom, Tracee Dubose, Chester has been hospitalized numerous times in the past. In he was hospitalized at [facility] in [place] for alcoholism. Mother states that he has been at [facility] for his addictions (no specific details). According to mom, Chester was seeing psychiatrist, at [facility] in 2011 and was put on disability due to his mental illness. Mother states that Chester has mentioned in the past about committing suicide, but did not have anything specifics to give. She mentioned that Chester has had Mental and substance use problems since hewas a teenage but since his cirrhosis has progressively gotten worse. Mother states that she is afraid of Chester coming home, afraid that he may hurt her or other people. FMHx: Mother states, that Chester's father has schizophrenia and that both her father and brother hadsubstance use disorder, alcohol. Mom mentioned that her brother committed suicide. Medications: ??? 0.9% NaCl 3 mL Intracatheter q8h ??? artificial tears Each Eye q8h ??? chlorhexidine 15 mL Mouth/Throat BID ??? famotidine 20 mg Enteral Tube BID ??? heparin 5,000 Units Subcutaneous q8h ??? lactulose 20 g Enteral Tube TID ??? levETIRAcetam 500 mg Enteral Tube BID ??? linezolid 600 mg Intravenous q12h ??? melatonin 3 mg Enteral Tube AT BEDTIME ??? potassium - sodium phosphates 2 packet Enteral Tube TID WC ??? QUEtiapine 100 mg Enteral Tube BID ??? rifAXIMin 550 mg Enteral Tube BID ??? tamsulosin 0.4 mg Oral QDAY ??? SALINE LOCK, INSERT AND MAINTAIN AND 0.9% NaCl AND 0.9% NaCl ??? acetaminophen ??? hydrALAZINE ??? labetalol ??? OLANZapine OR OLANZapine Mental Status Exam Appearance: poorly groomed Eye Contact: Poor, no eye contact Attitude toward examiner: Other: unaware of examiner's presence Speech: slow rate, Language: Short Phrases, I want to go home ,now Psychomotor: Other: Agitates Mood: Agitated Affect:sedated Thought Process: unable to assess Thought Content: unable to asses Perception: amy Fund of Knowledge:amy Insight: poor Judgement: poor Cognitive Functions: Orientation:pt not aware of place, time but knows his name. Attention/Concentration: Agitated Memory:amy Gait and Station: Unable to assess gait and station Labs/Investigations: Vitals: Patient Vitals for the past 24 hrs: Temp Pulse Resp BP 08/31/21 0700 -- 61 20 124/76 08/31/21 0600 -- 61 25 132/80 08/31/21 0500 -- 64 24 122/81 08/31/21 0400 -- 58 23 124/80 08/31/21 0300 -- 65 16 138/82 08/31/21 0200 -- 63 12 135/69 08/31/21 0100 -- 71 27 (!) 140/40 08/31/21 0000 98.9 ??F (37.2 ??C) 60 31 124/77 08/30/21 2300 -- 71 (!) 32 131/73 08/30/21 2200 -- 72 27 134/83 08/30/21 2100 -- 60 26 118/77 08/30/21 2000 98.1 ??F (36.7 ??C) 74 17 146/92 08/30/21 1900 -- 78 (!) 37 129/79 08/30/21 1800 -- 75 26 131/73 08/30/21 1700 -- 75 28 152/87 08/30/21 1600 98.5 ??F (36.9 ??C) 71 (!) 32 144/87 08/30/21 1500 -- 75 (!) 33 140/82 08/30/21 1400 -- 80 24 131/83 08/30/21 1300 -- 55 28 120/74 08/30/21 1200 98.9 ??F (37.2 ??C) 69 (!) 38 141/78 08/30/21 1100 -- 73 29 115/71 08/30/21 1000 -- 69 15 102/56 08/30/21 0900 -- 72 25 111/66 08/30/21 0800 98.3 ??F (36.8 ??C) 70 21 108/55 Allergy: No Known Allergies Assessment Chester Dubose Jr. is a 51 year old , male with a history of bipolar disorder, per ED note was transferred to [facility] on 08/24/2021 for neurology consult. He presented to OSH for consuming an entire bottle of crystal meth. On presentation today, the patient was agitated. Unable to assess due to sedation. According to mother, Chester has a long history of alcoholism and substance use. The psychteam will address his agitation and will follow him. Lethality: Short term risk of suicide- low Risk factors: bipolar disorder, suicide attempts Protective factors: family support, physical incapacity Short term risk of harm to others- low Risk factors: expressed to hurt others Protective factors: physical incapacity to hurt other purposely Overall Risk: low I have seen and reviewed the available and relevant vital signs, labs, imaging, procedures, EKGs, allergies, and medications. DSM-5 Diagnosis: 1.Bipolar Disorder 2. F10.14 (Alcohol abuse with alcohol-induced mood disorder) F11.10 (Opioid Use Disorder, Mild) and F15.20 (Stimulant Use Disorder- Other or Unspecified Stimulant, mod/severe) Plan: Psychiatric problems: 1.Bipolar disorder 2. Agitation -PO Zyprexa 5 mg BID, PRN q6h 2.5mg Do NOT use Ativan or any Benzodiazepines along with the Zyprexa -C&L psych will continue to follow -D/c Seroquel -D/c Haldol Medical problems: Defer to medical team 1.Stroke Precautions: Precaution Orders Procedures ??? FALL PRECAUTIONS ??? SEIZURE PRECAUTIONS ??? ASPIRATION PRECAUTIONS This patient was discussed with the attending physician, Dr. Garcia, who agrees with the above impression and plan. MARK Casillas * Mariola Oviedo MD - 08/31/2021 7:12 AM CDT Neuro ICU Daily Progress Note Chester Dubose Jr. Age: [age] year old Date of : 1970 Date of Admission: 08/24/2021 Hospital Day: 7 Subjective Hospital Course: Chester Dubose Jr. is a 51 year old male with a history of bipolar disorder, polysubstance abuse,and alcoholic cirrhosis who was transferred from OSH on 08/24 for management of IPH. Prior to admission reported to have ingested a bottle of crystal meth (~1g) in a suicide attempt. He then developed seizure like activity and taken to OSH where he was given 10 mg of ativan and 1g Keppra. He was intub ated for airway protection. CTH there showed IPH in the left parietal occipital area and was transferred to [facility] for further management. On [facility] arrival NIHSS was 20 and CTH showed known hemorrhage. CTA was negative for spot sign, and ICH score was 2 on arrival (due to GCS). He was started on nicardipine ggt, given additional 3g Keppra, and admitted to the neuro ICU for further monitoring. He was started on cEEG monitoring due to seizure activity. MRI was done showing no underlying mass.He developed MRSA pneumonia and was treated with antibiotics. He was extubated on 08/30 successfully. Interval History: Agitated yesterday requiring one prn, given additional overnight. No other acute events. Objective Patient Vitals for the past 24 hrs: BP Temp Temp src Pulse Resp SpO2 08/31/21 0600 132/80 -- -- 61 25 93 % 08/31/21 0500 122/81 -- -- 64 24 92 % 08/31/21 0400 124/80 -- -- 58 23 93 % 08/31/21 0300 138/82 -- -- 65 16 95 % 08/31/21 0200 135/69 -- -- 63 12 95 % 08/31/21 0100 (!) 140/40 -- -- 71 27 93 % 08/31/21 0000 124/77 98.9 ??F (37.2 ??C) Axillary 60 31 94 % 08/30/21 2300 131/73 -- -- 71 (!) 32 92 % 08/30/21 2200 134/83 -- -- 72 27 92 % 08/30/21 2100 118/77 -- -- 60 26 92 % 08/30/21 2000 146/92 98.1 ??F (36.7 ??C) Axillary 74 17 98 % 08/30/21 1900 129/79 -- -- 78 (!) 37 93 % 08/30/21 1800 131/73 -- -- 75 26 95 % 08/30/21 1700 152/87 -- -- 75 28 95 % 08/30/21 1600 144/87 98.5 ??F (36.9 ??C) Axillary 71 (!) 32 92 % 08/30/21 1500 140/82 -- -- 75 (!) 33 93 % 08/30/21 1400 131/83 -- -- 80 24 93 % 08/30/21 1300 120/74 -- -- 55 28 92 % 08/30/21 1200 141/78 98.9 ??F (37.2 ??C) Oral 69 (!) 38 95 % 08/30/21 1100 115/71 -- -- 73 29 98 % 08/30/21 1000 102/56 -- -- 69 15 96 % 08/30/21 0900 111/66 -- -- 72 25 96 % 08/30/21 0800 108/55 98.3 ??F (36.8 ??C) Axillary 70 21 97 % Intake/Output Summary (Last 24 hours) at 08/31/2021 0712 Last data filed at 08/31/2021 0400 Gross per 24 hour Intake 2755.21 ml Output 3800 ml Net -1044.79 ml Exam: Drowsy, on precedex Opens eyes spontaneously and to voice, does not follow commands Speech is severely dysarthric, but able to say his name Pupils 3 mm equal and reactive to light Face appears symmetric Spontaneously moves all extremities and able to antigravity Responds to noxious stimulation in all 4 extremities Labs: Recent Labs Component Name 08/31/21 00308/29/21234908/29/21 0026 WBC 7.1 7.4 7.5 RBC 4.10* 3.95* 4.16* HGB 12.9 12.4 13.2 HCT 37.4 35.9 38.2 Recent Labs Component Name 08/31/213108/29/21234908/29/21 0026 NA 141 140 141 CL 112* 112* 111* CO2 21* 22 23 BUN 10 15 17 CREATININE 0.58* 0.69* 0.70* CALCIUM 8.0* 7.9* 7.9* Recent Labs Component Name 08/31/21 0032 08/29/21234908/29/21 0026 MAGNESIUM 1.6 1.8 1.8 Recent Labs Component Name 08/31/21 00308/29/21234908/29/21 0026 08/24/21193510/02/18 1610 PT 17.8* 18.8* 18.7* - 15.9* INR 1.5 1.6 1.6 - 1.3 PTT - - - - 36.9 - = values in this interval not displayed. Recent Labs Component Name 08/26/2131 HGBA1C 5.1 EAG 100 Recent Labs Component Name 08/25/21 0420 08/24/21220108/24/211935 CKTOTAL - - 409* TROPONINI <0.010 0.014 0.010 Assessment/Plan Chester Dubose . is a 51 year old male presenting for management of IPH in the setting of methamphetamine use and hypertensive emergency. Stroke Type: Hemorrhagic Stroke Mechanism: HTN (drug induced) Neurological #Right Partieto-Occiptial IPH - ICH score of 2 on arrival - Neurosurgery consulted - MRI brain done 08/27 without underlying mass - No additional stroke workup pending - Na goal: normonatremia - SBP goal <140 - Avoid anticoagulants and antiplatelets - q4h neurochecks - Neuroprotective measures: head of bed > 30??, avoid hypoglycemia, hyponatremia, and hyperthermia ?? #Seizure Activity - Likely provoked 2/2 drug use - cEEG with rare left frontal/fronto-central epileptiform discharges, discontinued - Continue with Keppra 500 mg BID ?? #Agitation #Acute Encephalopathy - On precedex ggt - Olanzapine 5 mg BID - Melatonin qhs - Delirium precautions ?? #Polysubstance Abuse #Suicidial Ideation #Bipolar Disorder - UDS on admission positive for amphetamines and methamphetamines - ETOH level neg on admission, although unsure if drinking prior to admission - Due to stroke doubt degree to which he can be a harm to himself - Psychiatry consulted Cardiovascular HR: 60 - 70s SBP: 120 - 140s #HTN Emergency, resolved - SBP goal <140 - PRN hydralazine and labetolol for SBP >140 ?? TTE (08/25) with EF of 76% ?? - Hemodynamic monitoring - Maintain MAP ~ 65 Respiratory Extubated 08/30 On 2L NC ?? 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 #Dysphagia - NGT in place - On TF at 50/hr, FWF 50 q4h ?? GI ppx: pepcid Renal/Electrolytes Intake/Output Summary (Last 24 hours) at 08/31/2021 0712 Last data filed at 08/31/2021 0400 Gross per 24 hour Intake 2755.21 ml Output 3800 ml Net -1044.79 ml #Urinary Retention - Harrington placed to reduce unnecessary stimulation and agitation - Delirium and stroke likely contributing - Continue with home tamsulosin - Monitor intake and output - Replete electrolytes as needed Hematology Recent Labs Component Name 08/31/21 0032 WBC 7.1 HGB 12.9 HCT 37.4 PLTCOUNT 89* #Thrombocytopenia - Likely 2/2 liver disease - Transfuse for platelets <50K DVT ppx: sqh Endocrine No acute issues Infectious Disease #MRSA PNA - Sputum positive from 08/27 - On linezolid q12 hours (EOT 08/30) - Monitor for fevers - Clay culture if febrile Musculoskeletal No acute issues LDA: PIVx2, NGT Diet: tube feeding DVT ppx: sqh Patient seen and discussed with neuro ICU attending, Dr. Hernando Oviedo MD PGY-3, Neurology Associated attestation - Olegario Villagomez MD - 09/06/2021 10:07 AM CDT NEUROCRITICAL CARE SERVICE ATTESTATION I have discussed the case with the Resident. I have personally performed a history, physical exam, and my own medical decision making. Upon my evaluation, this patient had a high probability of imminent or life-threatening deterioration due to ICH, which required my direct attention, intervention, and personal management. I have personally provided 31 minutes of critical care time exclusive of time spent on separately billable procedures. Time includes review of laboratory data, radiology results, discussion with consultants, and monitoring for potential decompensation. Interventions were performed as documented in the resident's note. I have reviewed the note and agree with the findings and plan with additions and modifications as listed below. Date of Service: 08/31/2021 Problem List Present on Admission Intracerebral bleed POA: Yes Dysphagia POA: Yes Leukocytosis (leucocytosis) POA: Unknown Bipolar 1 disorder POA: Yes Methamphetamine intoxication POA: Yes [place] coma scale total score 4 or 5 POA: Yes Seizures POA: Yes Endotracheally intubated POA: Yes Intentional drug overdose POA: Yes Thrombocytopenia, secondary POA: Yes Acute respiratory failure with hypoxia POA: Yes Alcoholic cirrhosis of liver without ascites POA: Yes Coagulopathy POA: Yes Suicide attempt POA: Yes We are carefully monitoring his airway. There has been a need for intravenous medications to treat delirium. Olegario Villagomez MD * Francoise Omer, [employer] - 08/31/2021 7:09 AM CDT [facility] Psychiatry Consult Progress Note Chester Dubose Jr. Age: [age] year old Date of : 1970 Date of Note: 08/31/2021 Hospital day: Hospital Day: 8 Reason for Admission: ID: Chester Dubose Jr. is a 51 year old white male preseting on 08/24/2021 from OSH with intracerebral hemorrhage. Reportedly at OSH pt had stated he wanted to kill himself. Also had reported, he hadingested a bottle worth of crystal meth (approximately 1g worth). On presentation to OSH was mildlyaltered and then rapidly decompensated, having generalized tonic clonic seizure, received ativan and keppra. CT showed intracerebral bleed. Was intubated and sedated with propofol and versed. Transferred to [facility] on arrival minimally responsive but extending his extremities to noxious stimuli. Loadedwith keppra admitted to ICU. Extubated 08/30. Complicated medical course with Acute intraparenchymalhematoma in the left posterior parietotemporal lobes, MRSA pneumonia, Seizures, Hx alcoholic cirrhosis Unclear Past psych hx chart indicates bipolar/schizophrenia? with history of polysubstance use-Has seen psychiatrist in past. ?? UDS + benzo amphetamine Expanded UDS amphetamine, methamphetamine Levetiracetam, midazolam, nicotine BAL none detected CT Brain-findings Acute intraparenchymal hematoma in the left posterior parietotemporal lobes measuring approximately3.4 x 3.6 x 3.7 cm with mild surrounding vasogenic edema. Mass effect causes 5 mm left to right midline shift. ?? Subjective: Interval Hx: Overnight Events agitation overnight pulled out NG yesterday afternoon PRNs over the last 24 hours: haldol 5 mg 08/30 1344 zyprexa 2.5 mg IM 08/31 0244, 08/31 1999 seroquel 100 mg given 08/30 2212 seroquel 50 mg given 08/30 0822, 1414, 2213 remains on precedex Propofol dcd 08/30 prior to extubation Melatonin 3 mg HS Pt also noted to be on keppra, linezolid INTERVIEW: 0800: On interview, pt restless in bed, pulling at restraints, rising up in bed. Has 4 pts restraints and left hand mitten Speech difficult to understand. Unable to state name, when asked date statedFebruary 26 and perseverated on this. Did answer yes to being in hospital. Stated he wants to go home now. No awareness of lines, tubes 10:45 Returned with psych attending, mother and sister bedside. Sister reports pt still confused but does recognize both mother and sister. Cont to talk about wanting to go home. Restless, moving in bed. Attempting to sit up, putting leg off side of bed. Restraints/mitten in place Further collateral from mother : Prior hospitalization for alcohol use [place], [place] addicitions could not elaborate. Saw psychiatrist 2012- went on disability for mental Illness. Mother reports substance use and mental healthissues since teen. Behaviors progressively worsened after cirrhosis diagnosis. Mother is willing tohelp pt but states she is afraid of Chester coming home, that he may hurt her or other people. Medications: ??? 0.9% NaCl 3 mL Intracatheter q8h ??? artificial tears Each Eye q8h ??? chlorhexidine 15 mL Mouth/Throat BID ??? famotidine 20 mg Enteral Tube BID ??? heparin 5,000 Units Subcutaneous q8h ??? lactulose 20 g Enteral Tube TID ??? levETIRAcetam 500 mg Enteral Tube BID ??? linezolid 600 mg Intravenous q12h ??? melatonin 3 mg Enteral Tube AT BEDTIME ??? potassium - sodium phosphates 2 packet Enteral Tube TID WC ??? QUEtiapine 100 mg Enteral Tube BID ??? rifAXIMin 550 mg Enteral Tube BID ??? tamsulosin 0.4 mg Oral QDAY ??? SALINE LOCK, INSERT AND MAINTAIN AND 0.9% NaCl AND 0.9% NaCl ??? acetaminophen ??? hydrALAZINE ??? labetalol ??? OLANZapine OR OLANZapine Mental Status Exam Appearance: disheveled, unkept robin Eye Contact: Poor Attitude toward examiner: inattentive Speech: difficult to understand speech Psychomotor: very restless, moving in bed frequently Mood: amy Affect: agitated Thought Process: confused Thought Content: Amy , wants to go home Perception: amy Fund of Knowledge:amy Insight:poor Judgement: poor Cognitive Functions: Orientation: see above Attention/Concentration: Poor Gait and Station: Unable to assess gait and station Labs/Investigations: Vitals: Patient Vitals for the past 24 hrs: Temp Pulse Resp BP 08/31/21 0600 -- 61 25 132/80 08/31/21 0500 -- 64 24 122/81 08/31/21 0400 -- 58 23 124/80 08/31/21 0300 -- 65 16 138/82 08/31/21 0200 -- 63 12 135/69 08/31/21 0100 -- 71 27 (!) 140/40 08/31/21 0000 98.9 ??F (37.2 ??C) 60 31 124/77 08/30/21 2300 -- 71 (!) 32 131/73 08/30/21 2200 -- 72 27 134/83 08/30/21 2100 -- 60 26 118/77 08/30/21 2000 98.1 ??F (36.7 ??C) 74 17 146/92 08/30/21 1900 -- 78 (!) 37 129/79 08/30/21 1800 -- 75 26 131/73 08/30/21 1700 -- 75 28 152/87 08/30/21 1600 98.5 ??F (36.9 ??C) 71 (!) 32 144/87 08/30/21 1500 -- 75 (!) 33 140/82 08/30/21 1400 -- 80 24 131/83 08/30/21 1300 -- 55 28 120/74 08/30/21 1200 98.9 ??F (37.2 ??C) 69 (!) 38 141/78 08/30/21 1100 -- 73 29 115/71 08/30/21 1000 -- 69 15 102/56 08/30/21 0900 -- 72 25 111/66 08/30/21 0800 98.3 ??F (36.8 ??C) 70 21 108/55 Allergy: No Known Allergies Assessment 51 year old white male preseting on 08/24/2021 from OSH with intracerebral hemorrhage. Reportedly at OSH pt had stated he wanted to kill himself. Also had reported, he had ingested a bottle worth of crystal meth (approximately 1g worth). On presentation to OSH was mildly altered and then decompensated, having generalized tonic clonic seizure, received ativan and keppra. CT showed intracerebral bleed. Was intubated and sedated with propofol and versed. Transferred to [facility] on arrival minimally responsive but extending his extremities to noxious stimuli. Loaded with keppra admitted to ICU. Unclear Past psych hx chart indicates bipolar? Has seen psychiatrist in past History of polysubstance use meth mj alcohol PMH alcoholic cirrhosis. Pt remains in ICU, restless in 4 pt restraints. Remains confused, poor insight/ judgment, no awareness of medical condition, lines tubes etc. At this time, pt with ongoing AMS, agitation consistent with delirium, s/p CVA, cirrhosis, prolonged substance use. Restless, agitated currently, not following commands, unable to participate in any type of meaningful interview. Still on sedation (precedex) as well. Requiring 4 pt restraints. Unable to evaluate for mood symptoms or r/o this was possible suicide attempt, presently. Hx of heavy alcohol use resulting in cirrhosis-Un clear recent alcohol use. Pt with very poor dentition, pt with meth use disorder. Cont to treat agitation would simplify medication regimen. UDS + benzo amphetamine Expanded UDS amphetamine, methamphetamine Levetiracetam, midazolam, nicotine BAL none detectedcirrhosis, CVA, alcohol use history (unclear current use)substance use Unclear past psych hx, rehab mult times. Per family, acting strange days prior to admission sister called 911 when arrived ingested crystal meth. Pt Father hx schizophrenia Lethality: Short term risk of suicide- with current mental status/delirium risk is lower, however pt is at elevated lifetime risk as pt is white male, had reported this was suicide attempt at OSH, prior suicideattempts, polysubstance abuse, unclear psychiatric history, psychosocial stressors, medical issues including cirrhosis Protective factors: family support Short term risk of harm to others-elevated risk, history of violence and has been verbally threatening as well, current delirium/AMS Mother indicates she is afraid of pt, and afraid he will hurt someone else. Currently risk would beassociated with ongoing AMS I have seen and reviewed the available and relevant vital signs, labs, imaging, procedures, EKGs, allergies, and medications. DSM-5 Diagnosis: Delirum due to another medical condition Stimulant use disorder (meth) Alcohol use disorder by history (unclear recent use) Plan: Psychiatric problems: 1. Delirium On precedex -being managed per ICU team, weaning down Dc seroquel Would schedule Zyprexa 5 mg BID and can give additional zyprexa 2.5 every 6 hours PRN-for severe non redirectable agitation Avoid adding additional psychotropics Please do not give any benzodiazepines with zyprexa-drug interaction can be life threatening 2. Substance abuse: Stimulant use disorder/alcohol use disorder Substance abuse treatment resources -when appropriate Unable to r/o suicide attempt with current mental status, cont to evaluate as MS improves, pt able to participate Medical problems: 1.Acute intraparenchymal hematoma in the left posterior parietotemporal lobes 2. Seizure activity 3. Alcoholic cirrhosis 4. MRSA pneumonia Legal/dispo: to be determined, will most likely need neuro rehab Precautions: Precaution Orders Procedures ??? FALL PRECAUTIONS ??? SEIZURE PRECAUTIONS ??? ASPIRATION PRECAUTIONS Monitor for Safety needs with ongoing delirium This patient was seen with the attending physician, Dr. Garcia, who agrees with the above impressionand plan. Francoise ENGLISH PMHCNS-BC Associated attestation - Elizabeth Garcia MD - 08/31/2021 1:52 PM CDT I saw and evaluated the patient on 08/31/2021. The case was discussed with the MUD WORKER/PA, and I have reviewed their note below. * Kasey Maurice RN - 08/31/2021 2:19 AM CDT Problem: Seizures Goal: Seizures are under control or absent Outcome: Progressing Problem: SEIZURE EVENT MONITORING Goal: To record an episode to determine whether or not the episode is a seizure. Outcome: Progressing Problem: Safety related to restraint use Goal: Absence of injury while restrained Outcome: Progressing Problem: Nutrient: Inadequate protein-energy intake Goal: Total intake will meet estimated nutrient needs Outcome: Progressing Problem: Neurological Deficit Goal: Neurological status is stable or improving Outcome: Progressing Problem: Hemodynamic Status/Cardiac Output Goal: Patient has stable vital signs and fluid balance Outcome: Progressing Problem: Oxygenation/Respiratory Function Goal: Respiratory rate/effort will be within specified limits Outcome: Progressing Problem: Mobility Goal: Patient's mobility/activity will be maintained as optimum level for age, diagnosis and physical limitations Outcome: Progressing Goal: Continuum of care needs are further met through referral to outpatient services when appropriate. Outcome: Progressing Goal: Patient reports the ability to perform Activities of Daily Living. Outcome: Progressing Problem: Communication Impairment/Dysarthria Goal: Ability to express needs and understand communication Outcome: Progressing Problem: Nutrition Goal: Nutritional status is improving Outcome: Progressing Problem: Aspiration Precautions Goal: Patient's risk of aspiration is minimized Outcome: Progressing Problem: Glycemic Control Goal: Clinical indication of glycemia balance is achieved Outcome: Progressing Problem: Knowledge Deficit,Education,Discharge Plan Goal: The patient/family will understand cerebrovascular disease and its symptoms, treatment and management Outcome: Progressing Problem: Pain/Discomfort Goal: Patient exhibits reduced pain/discomfort as evidenced by pain scores Outcome: Progressing Goal: Patient uses pharmacological and non-pharmacological pain management strategies. Outcome: Progressing Goal: Patient verbalizes acceptable level of pain relief and ability to engage in desired activity. Outcome: Progressing * Francoise Omer APRN-RING PACKER - 08/30/2021 3:54 PM CDT [employer] Psychiatry: Plan of care Full note to follow Pt with delirium, agitation, at this time. Unable to evaluate for mood symptoms, suicidal ideation or r/o if was possible suicide attempt. Will cont to follow and further assess for mood symptoms, si or if presentation was result of was suicide attempt REC's for agitation: Can Cont precedex per primary team Primary team has also started and increased seroquel to 100 mg BID-can cont In addition, can give seroquel 25 mg per tube every 6 hours PRN for severe agitation If an IM is needed, can use haldol 5 mg PRN every 6 hours for severe non redirectable agitation Pt was discussed with psych attending Dr Garcia who agrees with this plan Francoise Omer MSN PMNS- * Bonnie Knox RN - 08/30/2021 3:46 PM CDT * Marcio Jones - 08/30/2021 1:00 PM CDT Family Notification Documentation Contact made: 08/30/2021 12:54PM Person contact: Sister (Benson) Method of Communication: Phone Duration of discussion:??5??minutes: ?? Summary of discussion Updated current plan of care and clinical status. * Olegario Villagomez MD - 08/30/2021 12:21 PM CDT NEUROCRITICAL CARE He is doing better now and we have removed the orotracheal tube. Secretions are an issue but there is enough bulbar function to help him handle this and hopefully swallow as well. There is a history of polysubstance abuse as well as psychiatric illness which has raised concern for danger of him injuring himself by attempting suicide. It is my opinion that he will lack the executive function and planning skills as well as the ability to carry out any plans that would end his own life. He might still represent a risk to himself by removing medical equipment or IVs. He could also represent a danger to others if he exhibits agressive behavior but there has been no evidence of this kind of behavior so far. Caution is warranted but not more than is usually exercised in the care of a patient that exhibits ICU delirium and is at risk of falling and secondary deterioration. We will continue to use neuroleptics and increase their use should psychotic symptoms emerge. Olegario Villagomez MD * Narda Aguilar RCP - 08/30/2021 11:21 AM CDT Extubation procedure: Pt suctioned orally and via ETT. Cuff deflated and + cuff leak noted. Pt successfully extubated. No stridor noted. Breath sounds clear. * Trevor Quilesde, RD/LD - 08/30/2021 11:16 AM CDT Nutrition Re-Assessment Brief Synopsis: Patient is at Nutrition Risk; Specific criteria can be found in assessment below Nutrition Plan: Continue current diet (NPO) + Alter TF Tube Feeding Recommendations - Continuous: On propofol @ 4.31mL/hr (114kcal) Vital AF 1.2 Nikhil at goal of 50 ml/hr. +50 ml q 6 hrs free water flush or per MD Provides 1554 kcal, 90 g protein, 133 g carbohydrate, and 973 ml free water Tube Feeding Recommendations - Continuous: Off Propofol Vital AF 1.2 Nikhil at goal of 55 ml/hr. +50 ml q 6 hrs free water flush or per MD Provides 1584 kcal, 99 g protein, 146 g carbohydrate and 1070 ml free water Recommendations to Physician: + See recs above. Comments: Pt scheduled for reassessment. Per EMR, pt continues on vent and receiving propofol. Updated TF recs above. Last BM 08/29 - diarrhea noted. RD to follow. Assessment: Med/Surg History and Clinical Diagnoses: AMS, hypertensive crisis, and seizure- like episode after crystal meth overdose, found to have left temporoparietal ICH. Diet order accuracy Current diet order: NPO Current tube feeding order: VHP @ 45mL Nutrition recommendation: alter/change nutrition order P.O.Intake for the past 48 hrs:No data recorded Supplement Consumed (mL) last 48 hrs None Food Allergies: No known food allergies GI Concerns: None Chewing/Swallowing: (vent) Pain affecting intake: No Admission weight: Weight: 158 lb 9.6 oz (71.9 kg) (08/24/21 1859) Recent Weights/Methods 10/02/2018 1601 10/28/2018 1229 11/25/2018 1042 08/24/2021 1859 08/27/2021 0400 08/28/2021 0400 08/29/2021 0500 Weight: 190 lb (86.2 kg) 190 lb (86.2 kg) 190 lb (86.2 kg) 158 lb 9.6 oz (71.9 kg) 157 lb 9.6 oz (71.5 kg) 157 lb 9.6 oz (71.5 kg) 160 lb 3.2 oz (72.7 kg) Weight Method (Utilize Scales): -- -- -- -- Bedscale Bedscale Bedscale BMI: Body mass index is 21.73 kg/m??. BMI Range: Normal Wt Comments: Monitoring. Height: 6' (182.9 cm) IBW/lb (Calculated) Male: 178 , Laboratory values reviewed. Recent Labs Component Name 08/29/21 2350 08/29/21 0026 08/28/21 0013 08/27/21 1043 08/27/21 1043 08/25/21 0420 08/24/21 1936 10/21/18 0359 10/18/18 0542 10/18/18 0542 10/17/18 0400 10/12/18 2359 10/12/18 0006 BUN 15 17 17 - 18 - 10 6* - 7* - - 6* CREATININE 0.69* 0.70* 0.83 - 0.66* - 0.66* 0.58* - 0.53* - - 0.4* NA 140 141 143 - 140 - 134* - - - - - 138 POTASSIUM 3.8 4.1 3.9 - 3.9 - 3.9 3.9 - 3.8 - - 3.0* CL 112* 111* 112* - 109* - 104 - - - - - 109* CO2 22 23 23 - 23 - 22 24 - 26 - - 22 GLUCOSE 137* 125* 141* - 133* - 110 112* - 89 - - 108 CALCIUM 7.9* 7.9* 8.2* - 7.9* - 8.0* 8.8 - 8.7 - - 7.3* PROT - - - - 6.2 - 5.9* - - - - - 5.0* ALB - - - - 2.6* - 2.7* - - - - - 1.6* TBILI - - - - 1.4* - 1.5* - - - - - 2.8* ALKPHOS - - - - 100 - 116 - - 107 - - 103 ALT - - - - 37 - 46 - - 20 - - 26 AST - - - - 50* - 79* - - 84* - - 105* ANIONGAP 10 11 12 - 12 - 12 6* - 6* - - 10 BCR 22 24* 20 - 27* - 15 - - - - - 15 OSMOLALITY 293 295 300 - 294 - 278 - - - - - 284 AGRATIO - - - - 0.7* - 0.8* - - - - - 0.5* EGFR >90 >90 >90 - >90 - >90 >60 - >60 - - >60 EGFRAFR - - - - - - - >60 - >60 - - - - = values in this interval not displayed. Medications noted. Current Facility-Administered Medications Medication ??? 0.9% NaCl infusion ??? 0.9% NaCl injection 3 mL And ??? 0.9% NaCl injection 1-10 mL ??? acetaminophen (Tylenol) tablet 500 mg ??? artificial tears ophthalmic ointment ??? chlorhexidine (Peridex) 0.12 % oral solution 15 mL ??? dexmedeTOMIDine (Precedex) 400 mcg in 100 mL NS infusion premix ??? famotidine (Pepcid) tablet 20 mg ??? heparin injection 5,000 Units ??? hydrALAZINE (Apresoline) injection 10 mg ??? labetalol (Normodyne; Trandate) injection 10 mg ??? lactulose (Chronulac) solution 20 g ??? levETIRAcetam (Keppra) tablet 500 mg ??? potassium - sodium phosphates (Phos-Nak) powder 2 packet ??? propofol (Diprivan) infusion ??? QUEtiapine (SEROquel) tablet 50 mg ??? rifAXIMin (Xifaxan) tablet 550 mg ??? tamsulosin (Flomax) capsule 0.4 mg ??? vancomycin (Vancocin) 1,500 mg in 500 mL NaCl IVPB Skin/Wound: WDL Estimated Energy Needs: KCAL: 6762-0696 (20-25kcal/kg of ABW) Protein (g): 86-143 (1.2-2g/kg of ABW) Fluid (ml): 1 ml/kcal Needs based on: Kcal/kg- (Comment) (ABW = 71.9kg) Recommended Access Route: TF Education needed: Stroke Nutrition Therapy Education Provided: Not appropriate (AMS, vent) Nutrition Care Process (1) Nutrition Diagnostic Statement: Inadequate protein-energy intake related to:: enteral or parenteral nutrition infusion not yet at goal volume as evidenced by:: estimated intake insufficient to meet requirements Nutrition Diagnostic Statement Progress: Nutrition problem continues Nutrition Intervention: Enteral nutrition: Monitoring: TF, BM, labs, meds, weight Evaluation: Nutrition Goal: Total intake will meet estimated nutrient needs Nutrition Goal Timeframe: Throughout stay Nutrition Goal Progress: Continue with current goal [id number] * Arnie Chand - 08/30/2021 7:38 AM CDT Social Work Progress Note Discharge Plan Disposition: SW reviewed Pt's chart and attended Stroke Rounds. Pt will likely be extubated on or before 08/31. Per Resident, Pt will receive evaluation by Psych to determine disposition upon discharge. No social work needs identified at this time. SW will continue to follow should needs present prior to discharge. Transportation (if ambulance rationale): Transportation at discharge: (jennifer determined by disposition) Anticipated Discharge Date: Anticipated Discharge Date: 09/04/21 PIPER Dumont MBA Anodizing Line Operator [phone] 08/30/2021 7:38 AM * Marcio Jones - 08/30/2021 7:28 AM CDT Neuro ICU Progress Note Chester Dubose Jr. Age: [age] year old Date of : 1970 Date of Admission: 08/24/2021 Hospital Day: 6 Hospital Course 08/25: Paused sedation. Ordered MRI of head w. wo contrast to evaluate for tumor etiology for ICH. cEEG showed no seizure activity.??Paused sedation to get a better neurological assessment.? 08/26: Started patient on Precedex to help wean off of propofol. MRI Head showed no underlying tumors. Started patient on sqh for DVT prophylaxis.? 08/27: Switched to Spont Vent.??Restarted sedation due to pt agitation. Obtained sputum and blood cultures due to fever. ?? 08/28: D/sudhir cEEG. Increased Seroquil to 100 mg BID for agitation. Subjective Mr. Dubose is a 51 y.o. male with a pmh of alcohol use disorder (last reported drink 01/06), BP1,cirrhosis and BPH who presented with AMS and SI after ingesting meth. ?? Information obtain from chart review as patient is sedated: Patient ingested 1g of meth after losing his job, per sister he ate a bottle of meth .??Patient stated he has been very depressed and recently lost his job. States he wanted to end his life.??UDS atOSH showed (+) cannabinoids and amphetamine.??At OSH patient was alert but mention started to decline. BPs in the 180s-200s systolic and HR in the 130s. At OSH there was a witnessed GTC and he was given a sum of 10 mg of ativan and 1000 mg of Keppra. CTH at OSH showed intraparenchymal hematoma in the left parietooccipital lobe with surrounding edema. Patient was placed on propofol and started on nicardipine drip, he was also given mannitol. Pt was transferred to [facility], reports have state he would extend his extremeities to noxious stimuli??on admission. Repeat CTH showed similar findings to OSH. CTA H/N showed no aneurysm and no active bleeding. NSGY consulted for surgery, but declined. Patient was loaded with 3g Keppra.? Patient has hx of cirrhosis with ascites, takes rifampin and lactulose for condition. Ethanol bloodtesting was not done during admission or at OSH. Has hx of previous suicide attempts. ?? Spoke with family who mentioned that pt had previously took Abilify but stopped taking it because he did not like the feeling of being on it. States he takes lactulose, rifampin, Flomax at home. Verfied that pt's pharmacy was at the [facility] in [place], [place]. Mentioned that patient was suppose to have an appoint with his doctor to assess pt's liver via ultrasound. ?? Called [facility] pharmacy which confirmed that patient currently takes Flomax??Patient Glucose Bedside (mg/dL) in the past 48 hrs:??Qdaily and Mirapex 0.25 Qnightly. ?? Interval History: No adverse overnight issues. Objective Past Medical History: Diagnosis Date ??? Anxiety ??? Bipolar 1 disorder 10/07/2018 ??? Cirrhosis ??? COPD (chronic obstructive pulmonary disease) ??? Delirium tremens ??? Depression ??? Depression ??? Substance abuse ??? Suicide attempt Past Surgical History: Procedure Laterality Date ??? Wrist Fracture Repair Left 10/15/2018 Left; OPEN REDUCTION INTERNAL FIXATION (ORIF) WRIST/DISTAL RADIUS Medications Prior to Admission Medication Sig Dispense Refill ??? Folic Acid (FOLATE PO) Take 1 mg by mouth once daily ??? gabapentin (NEURONTIN) 100 MG capsule Take 100 mg by mouth 3 times daily ??? lactulose (CHRONULAC;ENULOSE) 10 GM/15ML solution Take 15 mL by mouth 3 times daily ??? Multiple Vitamin (MULTIVITAMIN ADULT PO) Take 1 tablet by mouth once daily ??? pramipexole (MIRAPEX) 0.25 MG tablet Take 0.25 mg by mouth once daily ??? tamsulosin (FLOMAX) 0.4 MG capsule Take 0.4 mg by mouth once daily ??? thiamine 100 MG Take 1 tablet by mouth once daily ??? XIFAXAN 550 MG tablet Take 550 mg by mouth 2 times daily Allergy No Known Allergies Family History No family history on file. Social History Social History Socioeconomic History ??? Marital status: Single Spouse name: Not on file ??? Number of children: Not on file ??? Years of education: Not on file ??? Highest education level: Not on file Occupational History ??? Not on file Tobacco Use ??? Smoking status: Former Smoker Packs/day: 1.00 Types: Cigarettes ??? Smokeless tobacco: Never Used Substance and Sexual Activity ??? Alcohol use: Yes Comment: used EtOH today ??? Drug use: Yes Types: Marijuana, Cocaine ??? Sexual activity: Not on file Other Topics Concern ??? Not on file Social History Narrative ??? Not on file Patient Vitals for the past 8 hrs: BP Temp Temp src Pulse Resp SpO2 08/30/21 0600 104/55 -- -- 60 24 94 % 08/30/21 0500 107/57 -- -- 58 30 94 % 08/30/21 0432 -- -- -- 60 -- 95 % 08/30/21 0400 115/66 98.8 ??F (37.1 ??C) Axillary 57 31 95 % 08/30/21 0300 115/66 -- -- 56 26 95 % 08/30/21 0200 110/63 99.5 ??F (37.5 ??C) Axillary 56 27 94 % 08/30/21 0100 109/56 -- -- 58 24 96 % 08/30/21 0000 100/61 99.4 ??F (37.4 ??C) Axillary 66 20 95 % 08/29/21 2347 -- -- -- 66 -- 95 % Exam: Sedated Pupils equal and reactive to light. Spont moves all extremities. Assessment Chester Dubose .??is a 51 year old??male??with a pmh of alcohol use disorder (last reported drink 01/06), BP1, cirrhosis and BPH who presented with AMS and SI after ingesting meth. Stroke Type:??Hemorrhagic Stroke Mechanism:??Sympathomimetic?? Plan Neurological ?? Hemmorrhagic Stroke L parietal-occipital??due sympathomimetic drugs - q2h vitals and neurological checks - Stat CT head for any change in neurological examination -??MRI w and wo contrast??(08/26) showed no underlying enhancing mass - Head of bed > 30?? - Avoid hypoglycemia, hyponatremia, and hyperthermia -appreciate NSGY recs Sedation -on Precedex, will attempt to wean pt off Seizures - likely provoked due to amphetamine consumption??and intraparenchymal bleeding - Keppra??500 mg BID for seizure??prophylaxes?? BP1??and SI - Seroquel 50 mg BID for agitation?? -??consulted psych today due to SI. Cardiovascular BP: 115-96/66-48 HR:??56-67 ?? No acute issues -??TTE (08/25) showed EF>65% - Blood pressure goal: SBP < 140 - PRN hydralazine IV and labetalol IV for SBP > 140?? - Hemodynamic monitoring - Maintain MAP ~ 65 Respiratory SPO2>92% R 14-31 ?? Iatregenic Intubated at OSH due to sedation - Elevate head of bed - Maintain oxygen saturation > 92% - Monitor for respiratory distress -patient was weaned from vent today Renal/Electrolytes K 3.8 Mg 1.8 P 1.9 Cr 0.69 BUN 15 UOP ~ 0.7 cc/kg/hr ?? Total IN: 3283 Total OUT: 1550 Net 1733 ?? BPH -continue??home med??0.4 mg Flomax Qdaily - Monitor intake and output - Replete electrolytes as needed - ordered NaPhos due to low P Gastrointestinal ? Cirrohosis 2/2 to alcohol use -continue??home dose??rifaximin and lactulose?? -TF??45ml, flushes 50ml??q4 -following nutrition recs -switched from??Protonix??to Pepcid due to risk of thrombocytopenia with Protonix Budd-Chiari -US abdomen showed portal HTN and hepatic cirrhosis -consulted GI, suggest f/u with outpt tool worker? Hematology Hbg 12.4 Plt 88 PTT 18.8 ?? Thrombocytopnia secondary to liver failure - monitor Plt count - Transfuse for hemoglobin < 7.0 g/dL -??started??on heparin q8 (08/26-current) for DVT prophylaxis Endocrine ?? Glu 125-137 ?? No acute concerns A1c 08/26 5.1 ?? Infectious Disease WBC 7.4 ?? T 98.7-99.5 MRSA (+) Sputum - Monitor for fevers - pt switched from vanc to linezolid - prn Tylenol for fevers Musculoskeletal ? No acute issues Disposition ? -??SW consulted - pending PT/OT - will update family with updated care plan Lines:Lines: PIVx2, OGT, ETT The patient was discussed with Dr. Villagomez, Neurology Attending Marcio Jones MS4 * Irma Marie DO - 08/30/2021 7:00 AM CDT Images from the original note were not included. PULMONARY CONSULT NOTE 08/30/21 7:00 AM Patient Name: Chester Dubose Jr. Date of Admission:08/24/2021 6:40 PM REFERRING TEAM : Neuro Critical Care Team REASON FOR CONSULT: Vent management Brief Hospital Course: HPI: Chester Dubose Jr. is a 51 year old male w/ PMH bipolar disorder, MDD/anxiety c/b prior suicide attempts, substance use (meth, EtOH, cocaine, marijuana), EtOH cirrhosis who presented to [facility] on 08/24 for suicide attempt. Per notes sister stated he ate a bottle of meth. Herecently lost his home and job and took approximately 1 g of methamphetamine. UDS was positive for amphetamines, cannabinoids. He initially was alert however his mentation decompensated and he was noted to have a generalized tonic clonic seizure (time not specified). He was intubated 08/24. CTH at OSH revealed intracerebral bleed. He was sedated with propofol and versed. He also had HTN and was started on mannitol and nicardipine drip. He was transferred to [facility] for neurology evaluation. Upon arrival he was minimally responsive and only having extension of extremities when noxious stimulus applied. Repeat CTH stable and NSGY evaluated patient and no acute intervention recommended. ?? ICU course: 08/24: intubated after tonic clonic seizure 08/27: cEEG with moderate to severe encephalopathy, with very rare left frontal epileptiform discharges, occasional to frequent triphasic waves that were periodic at 2 Hz, and evidence of left temporal dysfunction 08/28: PSV 8/5 FIO2 25% 08/29: tolerated PSV most of day Subjective: Interval History: Overnight patient tolerated PSV 10/5 FIO2 25%. This AM on precedex 1 and propofol 30. He is not following commands. OBJECTIVE: Temp: [98.6 ??F (37 ??C)-99.6 ??F (37.6 ??C)] 98.8 ??F (37.1 ??C) Pulse: [56-70] 60 Resp: [12-31] 24 BP: (93-115)/(48-66) 104/55 O2 %: [24 %-25 %] 25 % Intake/Output Summary (Last 24 hours) at 08/30/2021 0700 Last data filed at 08/30/2021 0400 Gross per 24 hour Intake 3797.6 ml Output 1385 ml Net 2412.6 ml Physical Exam: General: Lying in bed, Intubated and sedated HEENT: PERRL, EOMI, MMM, No JVD, OG/ET Tube in place Lungs: CTAB no w/r/r Heart: RRR no m/r/g Abdomen: distended but soft, BS x4 Extremity: No Edema, Pulses 2+ Skin: Warm and dry. No rashes or bruising noted. Neurological: Intubated and Sedated, not following my commands Intake/Output Summary (Last 24 hours) at 08/30/2021 0700 Last data filed at 08/30/2021 0400 Gross per 24 hour Intake 3797.6 ml Output 1385 ml Net 2412.6 ml Vitals Pulse: 60 SpO2: 94 % Ventilator Information Ventilator ID: [id number] Ventilation Rate Set Ventilation Rate (bpm): 10 bpm Observed ventilation rate (bpm): 29 bpm Insp Time (sec): 1 sec Insp Flow (L/Min): 54 l/Min Insp rise/Ramp (sec): 50 Sec ETS (%): 25 % I:E Ratio: 1:4 Actual I:E Ratio: 1:1.7 f/VT (RSBI): 60 Volumes Set Tidal Volume (mL): 500 ML Exhaled Tidal Volume (ml): 602 ml Spontaneous Tidal Volume (mL): 388 ML Observed Minute Ventilation (L/m): 10.6 Liters/Minute Ventilator Pressures Observed Peak Inspiratory Pressure (cm H2O): 17 cm H2O Pressure Support: 10 cm H2O Plateau Pressure (cm H2O): 12 cm H2O Mean Airway Pressure (cm H2O): 9 cm H2O PEEP/CPAP: 5 cm H20 Safety & Alarms Airway Emergency Supplies Available: Resuscitation Bag with PEEP Valve;Appropriate Size Mask;OxygenConnecting Tubing Humidity Temp (C): 37 Celsius Humidifier alarm on and functional: Yes Backup Mode Checked: Yes Alarm Volume: 10 High Pressure Alarm (cm H2O): 50 cm H2O Low Minute Ventilation : 3 Low Tidal Volume : 2200 ml High Tidal Volume : 1000 Low Resp Rate: 8 High Resp Rate: 40 Apnea alarm (On/Off): On Apnea (secs): 20 secs Pulmonary Suctioning Suctioned?: Yes Suction Mode: Oral;ET Tube Secretion Consistency: Thick;Thin Secretion Color: Clear;Yellow Secretions Amount: Moderate Hyperoxygenated prior to suctioning?: Yes Labs: CBC: Recent Labs Component Name 08/29/21234908/29/212508/28/2112 WBC 7.4 7.5 10.4 HGB 12.4 13.2 14.3 BMP: Recent Labs Component Name 08/29/21234908/29/216 03/13/22 0013 NA 140 141 143 CL 112* 111* 112* CO2 22 23 23 BUN 15 17 17 CREATININE 0.69* 0.70* 0.83 CALCIUM 7.9* 7.9* 8.2* MAGNESIUM 1.8 1.8 1.9 PHOS 1.9* 2.1* 1.9* LFT: Recent Labs Component Name 08/27/21 1043 08/24/21 1936 10/18/18 0542 10/12/18 0006 PROT 6.2 5.9* - 5.0* ALB 2.6* 2.7* - 1.6* ALKPHOS 100 116 107 103 AST 50* 79* 84* 105* ALT 37 46 20 26 Coagulation: Recent Labs Component Name 08/29/21 2350 08/29/21 0026 08/28/21 0013 PT 18.8* 18.7* 19.7* INR 1.6 1.6 1.7 Cardiac markers: Recent Labs Component Name 08/25/21 0420 08/24/21 2202 08/24/211935 CKTOTAL - - 409* TROPONINI <0.010 0.014 0.010 MICROBIOLOGY Microbiology Results (Displays last 21 days for this encounter ONLY) Procedure Component Value - Date/Time CULTURE SPUTUM+GRAM STAIN [[id number]] (Abnormal) (Susceptibility) Collected: 08/27/21 170 Lab Status: Final result Specimen: Microbiology from Sputum Updated: 08/30/21 013 Culture Heavy Staphylococcus aureus methicillin-resistant (MRSA) Comment: Staphylococcus aureus methicillin-resistant (MRSA) detected by penicillin binding protein immunoassay. Contact precautions required. Conventional antibiotic susceptibility testing to follow. Light normal oropharyngeal izabella Gram Stain Heavy Gram-positive cocci >= 25 per low power field Polymorphonuclear cells <10 per low power field Squamous epithelial cells Narrative: Methicillin-resistant Staphylococci (MRSA) are resistant to all currently available beta-lactam antibiotics with the exception of the newer cephalosporins with anti-MRSA activity. Contact precautionsrequired. Susceptibility Staphylococcus aureus methicillin-resistant (MRSA) (1) Antibiotic Interpretation Microscan Method Status Clindamycin Susceptible 0.25 ug/mL MANJIT Final Doxycycline Susceptible <=0.5 ug/mL MANJIT Final Gentamicin Susceptible <=0.5 ug/mL MANJIT Final Inducible Clindamycin Resistance Neg NEG ug/mL MANJIT Final Linezolid Susceptible 2 ug/mL MANJIT Final Oxacillin Resistant >=4 ug/mL MANJIT Final Tetracycline Susceptible <=1 ug/mL MANJIT Final Trimethoprim-sulfamethoxazole Susceptible <=10 ug/mL MANJIT Final Vancomycin Susceptible <=0.5 ug/mL MANJIT Final CULTURE BLOOD [[id number]] (Normal) Collected: 08/27/211704 Lab Status: Preliminary result Specimen: Blood Peripheral Updated: 08/29/21 2100 Culture No growth CULTURE BLOOD [[id number]] (Normal) Collected: 08/27/211704 Lab Status: Preliminary result Specimen: Blood Peripheral Updated: 08/29/21 2100 Culture No growth IMAGING CXR 08/27/21: Endotracheal tube terminates in the midthoracic trachea. Feeding tube courses below the diaphragm, the tip is off the field of the View. The patient is rotated to the right. ? There are low lung volumes with bronchovascular crowding. No focal consolidation, pleural effusion, or pneumothorax is seen. The cardiomediastinal silhouette is normal. CT chest/abd/pelvis W contrast 08/24/21: 1.No acute finding within the chest. 2.Hepatic cirrhosis with sequela of portal hypertension including splenomegaly and dilated and markedly tortuous splenic vein. 3.A 0.5 cm hyperdense focus in the cecum was not present previously and could represent an ingested object. Medications ??? 0.9% NaCl 3 mL Intracatheter q8h ??? artificial tears Each Eye q8h ??? chlorhexidine 15 mL Mouth/Throat BID ??? famotidine 20 mg Enteral Tube BID ??? heparin 5,000 Units Subcutaneous q8h ??? lactulose 20 g Enteral Tube TID ??? levETIRAcetam 500 mg Enteral Tube BID ??? potassium - sodium phosphates 2 packet Enteral Tube TID WC ??? QUEtiapine 50 mg Enteral Tube BID ??? rifAXIMin 550 mg Enteral Tube BID ??? tamsulosin 0.4 mg Oral QDAY ??? vancomycin 1,500 mg Intravenous q12h Continuous Medications 0.9% NaCl IV, , Last Rate: 50 mL/hr at 08/30/21 0400 dexmedeTOMIDine, 0-1.5 mcg/kg/hr, Last Rate: 1 mcg/kg/hr (08/30/21 0400) propofol, 0-80 mcg/kg/min, Last Rate: 25 mcg/kg/min (08/30/21 0409) PRN Medications SALINE LOCK, INSERT AND MAINTAIN AND 0.9% NaCl AND 0.9% NaCl ??? acetaminophen ??? hydrALAZINE ??? labetalol ASSESSMENT # Intubated for airway protection in setting of acute encephalopathy and tonic clonic seizure # Suicide attempt # MRSA Pneumonia on vanc # MDD/anxiety c/b prior suicide attempts # Substance use (meth, EtOH, cocaine, marijuana) # EtOH Cirrhosis # Tonic clonic seizure RECOMMENDATIONS --continue ventilator support at this time while patient is encephalopathic, lung mechanics appropriate, however, encephalopathy will be limiting factor for extubation --cont PSV 8/5 FIO2 25% as tolerated --please wean O2 to maintain saturations > 88% Patient to be discussed with attending. ?? Irma Marie, DO Pulmonary / Critical Care Fellow Division of Pulmonary, Critical Care, & Sleep Medicine [facility] Associated attestation - Ashutosh Morejon MD - 08/30/2021 1:06 PM CDT Pulmonary Attending Note Care during the described time interval on 08/30/21 was provided by me. I have reviewed this patient's available data, including medical history, events of note, physical examination and test results,and have overseen the activities of the other members of the team under my direct supervision. I agree with the findings and plan of care as documented with the following updates: Patient is a 51 year old male with a PMH of bipolar d/o, substance abuse, & EtOH cirrhosis admitted with intracranial hemorrhage with consult to Pulmonary medicine for vent management. More active today. On minimal vent settings. Will attempt extubation today. Recommend changing vanc to linezold for MRSA PNA. Rest per above. Problem List Acute respiratory failure Intracranial hemorrhage MRSA pneumonia Ashutosh Morejon MD [facility] of Pulmonary & Critical Care Medicine [facility] Pager [phone] * Steve Sánchez, RN - 08/30/2021 6:55 AM CDT Problem: Seizures Goal: Seizures are under control or absent Outcome: Progressing Problem: SEIZURE EVENT MONITORING Goal: To record an episode to determine whether or not the episode is a seizure. Outcome: Progressing Problem: Safety related to restraint use Goal: Absence of injury while restrained Outcome: Progressing Problem: Nutrient: Inadequate protein-energy intake Goal: Total intake will meet estimated nutrient needs Outcome: Progressing Problem: Neurological Deficit Goal: Neurological status is stable or improving Outcome: Progressing Problem: Hemodynamic Status/Cardiac Output Goal: Patient has stable vital signs and fluid balance Outcome: Progressing Problem: Oxygenation/Respiratory Function Goal: Respiratory rate/effort will be within specified limits Outcome: Progressing Problem: Mobility Goal: Patient's mobility/activity will be maintained as optimum level for age, diagnosis and physical limitations Outcome: Progressing Goal: Continuum of care needs are further met through referral to outpatient services when appropriate. Outcome: Progressing Goal: Patient reports the ability to perform Activities of Daily Living. Outcome: Progressing Problem: Nutrition Goal: Nutritional status is improving Outcome: Progressing Problem: Aspiration Precautions Goal: Patient's risk of aspiration is minimized Outcome: Progressing Problem: Glycemic Control Goal: Clinical indication of glycemia balance is achieved Outcome: Progressing * Mariola Oviedo MD - 08/30/2021 6:34 AM CDT Neuro ICU Daily Progress Note Chester Dubose Jr. Age: [age] year old Date of : 1970 Date of Admission: 08/24/2021 Hospital Day: 6 Subjective Hospital Course: Chseter Dubose Jr. is a 51 year old male with a history of bipolar disorder, polysubstance abuse,and alcoholic cirrhosis who was transferred from OSH on 08/24 for management of IPH. Prior to admission reported to have ingested a bottle of crystal meth (~1g) in a suicide attempt. He then developed seizure like activity and taken to OSH where he was given 10 mg of ativan and 1g Keppra. He was intub ated for airway protection. CTH there showed IPH in the left parietal occipital area and was transferred to [facility] for further management. On [facility] arrival NIHSS was 20 and CTH showed known hemorrhage. CTA was negative for spot sign, and ICH score was 2 on arrival (due to GCS). He was started on nicardipine ggt, given additional 3g Keppra, and admitted to the neuro ICU for further monitoring. He was started on cEEG monitoring due to seizure activity. MRI was done showing no underlying mass.He developed MRSA pneumonia and was treated with antibiotics. Interval History: No acute events overnight. Extubated this morning. Objective Patient Vitals for the past 24 hrs: BP Temp Temp src Pulse Resp SpO2 08/30/21 0500 107/57 -- -- 58 30 94 % 08/30/21 0432 -- -- -- 60 -- 95 % 08/30/21 0400 115/66 98.8 ??F (37.1 ??C) Axillary 57 31 95 % 08/30/21 0300 115/66 -- -- 56 26 95 % 08/30/21 0200 110/63 99.5 ??F (37.5 ??C) Axillary 56 27 94 % 08/30/21 0100 109/56 -- -- 58 24 96 % 08/30/21 0000 100/61 99.4 ??F (37.4 ??C) Axillary 66 20 95 % 08/29/21 2347 -- -- -- 66 -- 95 % 08/29/21 2300 103/54 -- -- 67 24 94 % 08/29/21 2200 111/62 98.7 ??F (37.1 ??C) Axillary 60 25 94 % 08/29/21 2100 105/57 -- -- 61 22 96 % 08/29/212022 -- -- -- 65 -- 95 % 08/29/21 2000 107/55 99.5 ??F (37.5 ??C) Axillary 64 17 96 % 08/29/21 1900 96/48 -- -- 65 21 95 % 08/29/21 1800 99/54 99.1 ??F (37.3 ??C) Axillary 65 14 97 % 08/29/21 1700 98/51 -- -- 63 20 96 % 08/29/21 1600 98/51 98.7 ??F (37.1 ??C) Axillary 63 23 96 % 08/29/21 1500 110/58 -- -- 70 12 95 % 08/29/21 1400 101/49 98.8 ??F (37.1 ??C) Axillary 64 22 97 % 08/29/21 1300 97/50 -- -- 62 25 96 % 08/29/21 1200 101/52 99.6 ??F (37.6 ??C) Axillary 64 23 97 % 08/29/21 1100 104/49 -- -- 64 17 96 % 08/29/21 1000 99/50 98.6 ??F (37 ??C) Axillary 61 22 96 % 08/29/21 0930 -- -- -- 61 21 95 % 08/29/21 0900 93/50 -- -- 62 21 93 % 08/29/21 0830 97/54 -- -- 67 22 97 % 08/29/21 0800 100/48 99.3 ??F (37.4 ??C) Axillary 64 12 96 % 08/29/21 0700 100/54 -- -- 63 20 96 % Intake/Output Summary (Last 24 hours) at 08/30/2021 0634 Last data filed at 08/30/2021 0400 Gross per 24 hour Intake 3797.6 ml Output 1385 ml Net 2412.6 ml Exam: Extubated, on precedex Opens eyes spontaneously, does not follow commands Pupils 3 mm equal and reactive to light, gaze deviated downwards Face appears symmetric Spontaneously moves all extremities and able to antigravity Does not respond to noxious stimulation Labs: Recent Labs Component Name 08/29/21234908/29/216 08/28/21 0013 WBC 7.4 7.5 10.4 RBC 3.95* 4.16* 4.57 HGB 12.4 13.2 14.3 HCT 35.9 38.2 42.1 Recent Labs Component Name 08/29/21234908/29/21 0026 08/28/21 0013 NA 140 141 143 CL 112* 111* 112* CO2 22 23 23 BUN 15 17 17 CREATININE 0.69* 0.70* 0.83 CALCIUM 7.9* 7.9* 8.2* Recent Labs Component Name 08/29/21234908/29/21 0026 08/28/21 0013 MAGNESIUM 1.8 1.8 1.9 Recent Labs Component Name 08/29/21234908/29/216 08/28/21 0013 08/24/21 1936 10/02/18 1610 PT 18.8* 18.7* 19.7* - 15.9* INR 1.6 1.6 1.7 - 1.3 PTT - - - - 36.9 - = values in this interval not displayed. Recent Labs Component Name 08/26/21 0032 HGBA1C 5.1 EAG 100 Recent Labs Component Name 08/25/21 0420 08/24/21 2202 08/24/21 1936 CKTOTAL - - 409* TROPONINI <0.010 0.014 0.010 Assessment/Plan Chester Dubose Jr. is a 51 year old male presenting for management of IPH in the setting of methamphetamine use and hypertensive emergency. Stroke Type: Hemorrhagic Stroke Mechanism: HTN (drug induced) Neurological #Right Partieto-Occiptial IPH - ICH score of 2 on arrival - Neurosurgery consulted - MRI brain done 08/27 without underlying mass - No additional stroke workup pending - Na goal: normonatremia - SBP goal <140 - Avoid anticoagulants and antiplatelets - q2h neurochecks - Neuroprotective measures: head of bed > 30??, avoid hypoglycemia, hyponatremia, and hyperthermia ?? #Seizure Activity - Likely provoked 2/2 drug use - cEEG with rare left frontal/fronto-central epileptiform discharges, discontinued - Continue with Keppra 500 mg BID ?? #Sedation - On propofol and precedex ggt - Wean propofol as able - Goal RASS 0 to -1 - Reduced Seroquel to 50 mg BID ?? #Polysubstance Abuse #Suicidial Ideation #Bipolar Disorder - UDS on admission positive for amphetamines and methamphetamines - ETOH level neg on admission, although unsure if drinking prior to admission - Psychiatry consulted - 1:1 sitter Cardiovascular HR: 50 - 60s SBP: 100 - 110s #HTN Emergency, resolved - Off nicardipine ggt - SBP goal <140 - PRN hydralazine and labetolol for SBP >140 ?? TTE (08/25) with EF of 76% ?? - Hemodynamic monitoring - Maintain MAP ~ 65 Respiratory Extubated 08/30 ?? 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 #Dysphagia - NGT in place - On TF at 45/hr, FWF 50 q4h ?? GI ppx: pepcid Renal/Electrolytes Intake/Output Summary (Last 24 hours) at 08/30/2021 0634 Last data filed at 08/30/2021 0400 Gross per 24 hour Intake 3797.6 ml Output 1385 ml Net 2412.6 ml No acute issues - Monitor intake and output - Replete electrolytes as needed Hematology Recent Labs Component Name 08/29/21 2350 WBC 7.4 HGB 12.4 HCT 35.9 PLTCOUNT 88* #Thrombocytopenia - Likely 2/2 liver disease - Transfuse for platelets <50K Endocrine No acute issues Infectious Disease #MRSA PNA - Sputum positive from 08/27 - Started on vancomycin - Vanc trough 2300 on 08/30 - Monitor for fevers - Clay culture if febrile Musculoskeletal No acute issues LDA: PIVx2 Diet: tube feeding DVT ppx: sqh Patient seen and discussed with neuro ICU attending, Dr. Hernando Oviedo MD PGY-3, Neurology Associated attestation - Olegario Villagomez MD - 09/06/2021 10:09 AM CDT NEUROCRITICAL CARE SERVICE ATTESTATION I have discussed the case with the Resident. I have personally performed a history, physical exam, and my own medical decision making. Upon my evaluation, this patient had a high probability of imminent or life-threatening deterioration due to ICH, which required my direct attention, intervention, and personal management. I have personally provided 31 minutes of critical care time exclusive of time spent on separately billable procedures. Time includes review of laboratory data, radiology results, discussion with consultants, and monitoring for potential decompensation. Interventions were performed as documented in the resident's note. I have reviewed the note and agree with the findings and plan with additions and modifications as listed below. Date of Service: 08/30/2021 Problem List Present on Admission Intracerebral bleed POA: Yes Dysphagia POA: Yes Leukocytosis (leucocytosis) POA: Unknown Bipolar 1 disorder POA: Yes Methamphetamine intoxication POA: Yes Ram[place] coma scale total score 4 or 5 POA: Yes Seizures POA: Yes Endotracheally intubated POA: Yes Intentional drug overdose POA: Yes Thrombocytopenia, secondary POA: Yes Acute respiratory failure with hypoxia POA: Yes Alcoholic cirrhosis of liver without ascites POA: Yes Coagulopathy POA: Yes Suicide attempt POA: Yes In a multidisciplinary way he was evaluated by myself and pulmonology and we have decided to removethe orotracheal tube on the basis of no medical necessity. I am confident he will breathe well. Olegario Villagomez MD * Lisseth Barnard APRN-CNP - 08/29/2021 3:53 PM CDT NEUROSURGERY PROGRESS NOTE At the current time, Chester Dubose Jr. does not require any further inpatient neurosurgical care. Patients exam and imaging have remained stable. It is safe to contonue heparin SubQ for VTE prophylaxis There is no need for outpatient follow up. Please call with questions or concerns. RUBIA Mccurdy 08/29/2021 3:54 PM * Marcio Jones - 08/29/2021 1:16 PM CDT Family Notification Documentation Contact made: 08/29/2021 1:03PM Person contact: Sister (Benson) Method of Communication: Phone Duration of discussion: 5 minutes: ?? Summary of discussion Updated current plan of care and clinical status. * Mariola Oviedo MD - 08/29/2021 12:30 PM CDT Neuro ICU Daily Progress Note Chester Dubose Jr. Age: [age] year old Date of : 1970 Date of Admission: 08/24/2021 Hospital Day: 5 Subjective Hospital Course: Chester Dubose Jr. is a 51 year old male with a history of bipolar disorder, polysubstance abuse,and alcoholic cirrhosis who was transferred from [facility] on 08/24 for management of IPH. Prior to admission reported to have ingested a bottle of crystal meth (~1g) in a suicide attempt. He then developed seizure like activity and taken to OSH where he was given 10 mg of ativan and 1g Keppra. He was intub ated for airway protection. CTH there showed IPH in the left parietal occipital area and was transferred to [facility] for further management. On [facility] arrival NIHSS was 20 and CTH showed known hemorrhage. CTA was negative for spot sign, and ICH score was 2 on arrival (due to GCS). He was started on nicardipine ggt, given additional 3g Keppra, and admitted to the neuro ICU for further monitoring. He was started on cEEG monitoring due to seizure activity. MRI was done showing no underlying mass. Interval History: Overnight was agitated and given versed x1. Sputum positive for MRSA, started on vancomycin. Objective Patient Vitals for the past 24 hrs: BP Temp Temp src Pulse Resp SpO2 Weight 08/29/21 1200 101/52 99.6 ??F (37.6 ??C) Axillary 64 23 97 % -- 08/29/21 1100 104/49 -- -- 64 17 96 % -- 08/29/21 1000 99/50 98.6 ??F (37 ??C) Axillary 61 22 96 % -- 08/29/21 0930 -- -- -- 61 21 95 % -- 08/29/21 0900 93/50 -- -- 62 21 93 % -- 08/29/21 0830 97/54 -- -- 67 22 97 % -- 08/29/21 0800 100/48 99.3 ??F (37.4 ??C) Axillary 64 12 96 % -- 08/29/21 0700 100/54 -- -- 63 20 96 % -- 08/29/21 0600 110/63 98 ??F (36.7 ??C) Axillary 63 24 98 % -- 08/29/21 0500 116/72 -- -- 64 23 94 % 160 lb 3.2 oz (72.7 kg) 08/29/21 0400 120/72 98.8 ??F (37.1 ??C) Axillary 64 25 94 % -- 08/29/21 0300 114/67 -- -- 67 15 94 % -- 08/29/21 0245 -- -- -- 68 18 94 % -- 08/29/21 0201 118/70 99.3 ??F (37.4 ??C) Axillary 68 17 94 % -- 08/29/21 0200 123/69 -- -- 71 17 97 % -- 08/29/21 0100 129/75 -- -- 85 31 95 % -- 08/29/21 0000 122/63 (!) 101.1 ??F (38.4 ??C) Axillary 81 (!) 37 92 % -- 08/28/218 -- (!) 101.1 ??F (38.4 ??C) -- -- -- -- -- 08/28/21 2300 114/63 -- -- 78 20 94 % -- 08/28/212200 -- -- -- -- -- 96 % -- 08/28/212199 99/44 98.4 ??F (36.9 ??C) Axillary 72 29 96 % -- 08/28/21 2100 105/54 -- -- 71 27 96 % -- 08/28/212000 -- -- -- -- 28 96 % -- 08/28/211999 102/51 98.2 ??F (36.8 ??C) Axillary 71 29 96 % -- 08/28/21 191 -- -- -- 73 28 94 % -- 08/28/21 1900 97/48 -- -- 73 27 94 % -- 08/28/21 1800 105/48 99.3 ??F (37.4 ??C) Oral 76 26 97 % -- 08/28/21 1700 110/55 -- -- 74 15 92 % -- 08/28/21 1600 104/57 99 ??F (37.2 ??C) Oral 68 28 90 % -- 08/28/21 1500 104/58 -- -- 68 26 94 % -- 08/28/21 1400 115/99 99.2 ??F (37.3 ??C) Oral 73 20 95 % -- 08/28/21 1300 117/66 -- -- 65 22 96 % -- Intake/Output Summary (Last 24 hours) at 08/29/2021 1230 Last data filed at 08/29/2021 1210 Gross per 24 hour Intake 2425.22 ml Output 750 ml Net 1675.22 ml Exam: Intubated (on sedation) No eye opening to voice or stimulation Pupils 3 mm equal and reactive to light, gaze deviated downwards Face appears symmetric with ETT in place Spontaneously moves all extremities and able to antigravity Does not respond to noxious stimulation Labs: Recent Labs Component Name 08/29/21 0026 08/28/213 08/27/21 0023 WBC 7.5 10.4 8.9 RBC 4.16* 4.57 4.32 HGB 13.2 14.3 13.6 HCT 38.2 42.1 39.3 Recent Labs Component Name 08/29/21 0026 08/28/21 0013 08/27/21 1043 NA 141 143 140 CL 111* 112* 109* CO2 23 23 23 BUN 17 17 18 CREATININE 0.70* 0.83 0.66* CALCIUM 7.9* 8.2* 7.9* Recent Labs Component Name 08/29/21 0026 08/28/21 0013 08/27/21 0023 MAGNESIUM 1.8 1.9 2.3 Recent Labs Component Name 08/29/216 08/28/21 0013 08/27/213 08/24/21 1936 10/02/18 1610 PT 18.7* 19.7* 19.0* - 15.9* INR 1.6 1.7 1.6 - 1.3 PTT - - - - 36.9 - = values in this interval not displayed. Recent Labs Component Name 08/26/21 0032 HGBA1C 5.1 EAG 100 Recent Labs Component Name 08/25/21 0420 08/24/21 2202 08/24/211935 CKTOTAL - - 409* TROPONINI <0.010 0.014 0.010 Assessment/Plan Chester Dubose . is a 51 year old male presenting for management of IPH in the setting of methamphetamine use and hypertensive emergency. Stroke Type: Hemorrhagic Stroke Mechanism: HTN (drug induced) Neurological #Right Partieto-Occiptial IPH - ICH score of 2 on arrival - Neurosurgery consulted - MRI brain done 08/27 without underlying mass - No additional stroke workup pending - Na goal: normonatremia - SBP goal <140 - Avoid anticoagulants and antiplatelets - q2h neurochecks - Neuroprotective measures: head of bed > 30??, avoid hypoglycemia, hyponatremia, and hyperthermia ?? #Seizure Activity - Likely provoked 2/2 drug use - cEEG with rare left frontal/fronto-central epileptiform discharges, discontinued - Continue with Keppra 500 mg BID ?? #Sedation - On propofol and precedex ggt - Wean propofol as able - Goal RASS 0 to -1 - Reduced Seroquel to 50 mg BID ?? #Polysubstance Abuse #Suicidial Ideation #Bipolar Disorder - UDS on admission positive for amphetamines and methamphetamines - ETOH level neg on admission, although unsure if drinking prior to admission - Psychiatry consult when patient extubated for SI Cardiovascular HR: 60s SBP: 90 - 100s #HTN Emergency, resolved - Off nicardipine ggt - SBP goal <140 - PRN hydralazine and labetolol for SBP >140 ?? TTE (08/25) with EF of 76% ?? - Hemodynamic monitoring - Maintain MAP ~ 65 Respiratory #AHRF - Intubated 2/2 medications - Pulmonary consulted - On spontaneous, possible extubation tomorrow pending sedation weaning ?? 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 #Dysphagia - NGT in place - On TF at 45/hr, FWF 50 q4h ?? GI ppx: pepcid Last BM: 08/29, on lactulose Renal/Electrolytes Intake/Output Summary (Last 24 hours) at 08/29/2021 1338 Last data filed at 08/29/2021 1210 Gross per 24 hour Intake 2475.22 ml Output 1350 ml Net 1125.22 ml Given 500 cc bolus for low urine output Start NS @50/hr for 24 hours - Monitor intake and output - Replete electrolytes as needed Hematology Recent Labs Component Name 08/29/21 0026 WBC 7.5 HGB 13.2 HCT 38.2 PLTCOUNT 76* #Thrombocytopenia - Likely 2/2 liver disease - Transfuse for platelets <50K Endocrine No acute issues Infectious Disease #MRSA PNA - Sputum positive from 08/27 - Started on vancomycin - Vanc trough 2300 on 08/30 - Monitor for fevers - Clay culture if febrile Musculoskeletal No acute issues LDA: PIVx2 Diet: tube feeding DVT ppx: sqh Patient seen and discussed with neuro ICU attending, Dr. Hernando Oviedo MD PGY-3, Neurology Associated attestation - Olegario Villagomez MD - 09/06/2021 10:12 AM CDT NEUROCRITICAL CARE SERVICE ATTESTATION I have discussed the case with the Resident. I have personally performed a history, physical exam, and my own medical decision making. Upon my evaluation, this patient had a high probability of imminent or life-threatening deterioration due to ICH, which required my direct attention, intervention, and personal management. I have personally provided 33 minutes of critical care time exclusive of time spent on separately billable procedures. Time includes review of laboratory data, radiology results, discussion with consultants, and monitoring for potential decompensation. Interventions were performed as documented in the resident's note. I have reviewed the note and agree with the findings and plan with additions and modifications as listed below. Date of Service: 08/29/2021 Problem List Present on Admission Intracerebral bleed POA: Yes Dysphagia POA: Yes Leukocytosis (leucocytosis) POA: Unknown Bipolar 1 disorder POA: Yes Methamphetamine intoxication POA: Yes [place] coma scale total score 4 or 5 POA: Yes Seizures POA: Yes Endotracheally intubated POA: Yes Intentional drug overdose POA: Yes Thrombocytopenia, secondary POA: Yes Acute respiratory failure with hypoxia POA: Yes Alcoholic cirrhosis of liver without ascites POA: Yes Coagulopathy POA: Yes Suicide attempt POA: Yes He still requires the ventilator but I think this is due to a vicious cycle where we use sedatives to avoid agitation and the sedatives cause respiratory failure. There is a concern for behavioral issues given his psychiatric history but I am not as worried given his new injury. His Sister and Mother were here for a visit. We will attempt extubation tomorrow. Olegario Villagomez MD * Arnie Chand - 08/29/2021 8:47 AM CDT Social Work Progress Note Discharge Plan Disposition: SW reviewed Pt's chart and attended Stroke Rounds. Pt remains agitated and intubated at this time. Pt will likely be extubated later today. Pt is not medically ready to be discharge at this time. Recommendations for anticipated level of care are undetermined SNF vs psychiatric facility. SW will continue to follow and assist with disposition needs. Transportation (if ambulance rationale): Transportation at discharge: (jennifer determined by disposition) Anticipated Discharge Date: Anticipated Discharge Date: 09/04/21 PIPER Dumont MBA Anodizing Line Operator [phone] 08/29/2021 8:47 AM * Katia Anderson RN - 08/29/2021 8:12 AM CDT Will continue to monitor neurological status as ordered. * Usman Mcdonald MD - 08/29/2021 7:39 AM CDT Neurosurgery Progress Note Chester Dubose Jr. 08/29/21 Hospital Day: 5 Subjective: Patient is a 51 year old male with AMS, hypertensive crisis, and seizure-like episode after crystalmeth overdose, found to have left temporoparietal ICH. No acute events overnight. Recent/Significant Events: 08/25/21: 51 year old male with AMS, hypertensive crisis, and seizure-like episode after crystal meth overdose, found to have left temporoparietal ICH. Objective: T: 98 ??F (36.7 ??C) [Temp Min: 98 ??F (36.7 ??C) Max: 101.1 ??F (38.4 ??C)] BP: 110/63[BP Min: 97/48 Max: 122/63] MAP: 81[MAP (mmHg) Min: 62 Max: 93] HR: 63[Pulse Min: 63 Max: 81] RR: 24[Resp Min: 12 Max: 37] Sat: 98 %[SpO2 Min: 90 % Max: 98 %] ICP: [No data recorded] n/a EVD: n/a Input/Output: 08/28 0701 - 08/29 0700 In: 1656.7 [I.V.:824.7] Out: 1150 [Urine:950] JUAN/Other Drain: n/a Respiratory: CMV PEEP/CPAP: 5 cm H20 Pressure Support: 8 cm H2O Observed Peak Inspiratory Pressure (cm H2O): 24 cm H2O Set Tidal Volume (mL): 500 ML Spontaneous Tidal Volume (mL): 311 ML Exhaled Tidal Volume (ml): 519 ml Labs: Na 141 Recent Labs Component Name 08/29/21 0026 WBC 7.5 HGB 13.2 HCT 38.2 PLTCOUNT 76* Recent Labs Component Name 08/29/21 0026 NA 141 POTASSIUM 4.1 CO2 23 BUN 17 CREATININE 0.70* CALCIUM 7.9* GLUCOSE 125* Recent Labs Component Name 08/29/21 0026 08/24/21 1936 10/02/18 1610 INR 1.6 - 1.3 PTT - - 36.9 - = values in this interval not displayed. Imaging: No new neuroimaging Diet: DIET NPO Except: NO EXCEPTIONS DIET TUBE FEEDING CONTINUOUS Fluids: Prop, Precedex MEDICATIONS FOR CURRENT ENCOUNTER: SCHEDULED MEDICATIONS: 0.9% NaCl injection 3 mL, Intracatheter, q8h artificial tears ophthalmic ointment, Each Eye, q8h chlorhexidine (Peridex) 0.12 % oral solution 15 mL, Mouth/Throat, BID famotidine (Pepcid) tablet 20 mg, Enteral Tube, BID heparin injection 5,000 Units, Subcutaneous, q8h lactulose (Chronulac) solution 20 g, Enteral Tube, TID levETIRAcetam (Keppra) tablet 500 mg, Enteral Tube, BID QUEtiapine (SEROquel) tablet 100 mg, Enteral Tube, BID rifAXIMin (Xifaxan) tablet 550 mg, Enteral Tube, BID sodium - potassium phosphates (K Phos Neutral) tablet 2 tablet, Enteral Tube, Once tamsulosin (Flomax) capsule 0.4 mg, Oral, QDAY [COMPLETED] 0.9% NaCl IV bolus, Intravenous, Once [COMPLETED] midazolam (Versed) injection 2 mg, Intravenous, Once [COMPLETED] potassium - sodium phosphates (Phos-Nak) powder 1 packet, Enteral Tube, Once ?? [COMPLETED] QUEtiapine (SEROquel) tablet 50 mg, Enteral Tube, Once CONTINUOUS MEDICATIONS: dexmedeTOMIDine (Precedex) 400 mcg in 100 mL NS infusion premix, Intravenous, Continuous ?? propofol (Diprivan) infusion, Intravenous, Continuous PRN MEDICATIONS: 0.9% NaCl injection 1-10 mL, Intracatheter, PRN acetaminophen (Tylenol) tablet 500 mg, Enteral Tube, q4h PRN hydrALAZINE (Apresoline) injection 10 mg, Intravenous, q10 min PRN ?? labetalol (Normodyne; Trandate) injection 10 mg, Intravenous, q10 min PRN Neuro: Intubated, sedated, opens eyes to voice, ou3r, +cough/gag, cEEG leads in place, flexes BUE to pain, spontaneous with BLE Assessment: 51 year old male with AMS, hypertensive crisis, and seizure-like episode after crystal meth overdose, found to have left temporoparietal ICH. Plan: -Continue to follow neuro exam, q1h neuro checks -Na goal 140-145 -Plt goal >80k -INR goal equal to or less than 1.5 -Hold any antiplatelets/anticoagulation at this time -Page Neurosurgery with any acute decline in neuro exam and obtain stat head CT -Overall care per NeuroICU Usman Mcdonald MD 7:39 AM 08/29/21 To reach Neurosurgery for questions: From 7am to 5pm please call the [facility] for Neurosurgery From 5pm to 7am please refer to [facility] to reach the resident supervisor inspection department (changes daily) Secure chat can be used for non-urgent issues only, please expect a reasonable amount of time for responses * Marcio oJnes - 08/29/2021 7:16 AM CDT Neuro ICU Progress Note Chester Dubose Age: [age] year old Date of : 1970 Date of Admission: 08/24/2021 Hospital Day: 5 Hospital Course 08/25: Paused sedation. Ordered MRI of head w. wo contrast to evaluate for tumor etiology for ICH. cEEG showed no seizure activity.??Paused sedation to get a better neurological assessment.? 08/26: Started patient on Precedex to help wean off of propofol. MRI Head showed no underlying tumors. Started patient on sqh for DVT prophylaxis. ?? 08/27: Switched to Spont Vent. Restarted sedation due to pt agitation. Obtained sputum and blood cultures due to fever. 08/28: D/sudhir cEEG. Increased Seroquil to 100 mg BID for agitation. Subjective Mr. Dubose is a 51 y.o. male with a pmh of alcohol use disorder (last reported drink 01/06), BP1,cirrhosis and BPH who presented with AMS and SI after ingesting meth. ?? Information obtain from chart review as patient is sedated: Patient ingested 1g of meth after losing his job, per sister he ate a bottle of meth .??Patient stated he has been very depressed and recently lost his job. States he wanted to end his life.??UDS atOSH showed (+) cannabinoids and amphetamine.??At OSH patient was alert but mention started to decline. BPs in the 180s-200s systolic and HR in the 130s. At OSH there was a witnessed GTC and he was given a sum of 10 mg of ativan and 1000 mg of Keppra. CTH at OSH showed intraparenchymal hematoma in the left parietooccipital lobe with surrounding edema. Patient was placed on propofol and started on nicardipine drip, he was also given mannitol. Pt was transferred to [facility], reports have state he would extend his extremeities to noxious stimuli??on admission. Repeat CTH showed similar findings to OSH. CTA H/N showed no aneurysm and no active bleeding. NSGY consulted for surgery, but declined. Patient was loaded with 3g Keppra.? Patient has hx of cirrhosis with ascites, takes rifampin and lactulose for condition. Ethanol bloodtesting was not done during admission or at OSH. Has hx of previous suicide attempts. ?? Spoke with family who mentioned that pt had previously took Abilify but stopped taking it because he did not like the feeling of being on it. States he takes lactulose, rifampin, Flomax at home. Verfied that pt's pharmacy was at the [facility] in [place], [place]. Mentioned that patient was suppose to have an appoint with his doctor to assess pt's liver via ultrasound. ?? Called [facility] pharmacy which confirmed that patient currently takes Flomax??Patient Glucose Bedside (mg/dL) in the past 48 hrs:??Qdaily and Mirapex 0.25 Qnightly. ?? Interval History: Nurse reports patient was still agitated with new Seroquel dose and paused sedation. Had to put pt back on propofol. Pressures were also low last night requiring a 2 x 500 mL bolus of fluid. Patient was also given Versed for agitation. Patient also wore out on the vent had to change vent setting from Spont to CMV ?? Objective Past Medical History: Diagnosis Date ??? Anxiety ??? Bipolar 1 disorder 10/07/2018 ??? Cirrhosis ??? COPD (chronic obstructive pulmonary disease) ??? Delirium tremens ??? Depression ??? Depression ??? Substance abuse ??? Suicide attempt Past Surgical History: Procedure Laterality Date ??? Wrist Fracture Repair Left 10/15/2018 Left; OPEN REDUCTION INTERNAL FIXATION (ORIF) WRIST/DISTAL RADIUS Medications Prior to Admission Medication Sig Dispense Refill ??? Folic Acid (FOLATE PO) Take 1 mg by mouth once daily ??? gabapentin (NEURONTIN) 100 MG capsule Take 100 mg by mouth 3 times daily ??? lactulose (CHRONULAC;ENULOSE) 10 GM/15ML solution Take 15 mL by mouth 3 times daily ??? Multiple Vitamin (MULTIVITAMIN ADULT PO) Take 1 tablet by mouth once daily ??? pramipexole (MIRAPEX) 0.25 MG tablet Take 0.25 mg by mouth once daily ??? tamsulosin (FLOMAX) 0.4 MG capsule Take 0.4 mg by mouth once daily ??? thiamine 100 MG Take 1 tablet by mouth once daily ??? XIFAXAN 550 MG tablet Take 550 mg by mouth 2 times daily Allergy No Known Allergies Family History No family history on file. Social History Social History Socioeconomic History ??? Marital status: Single Spouse name: Not on file ??? Number of children: Not on file ??? Years of education: Not on file ??? Highest education level: Not on file Occupational History ??? Not on file Tobacco Use ??? Smoking status: Former Smoker Packs/day: 1.00 Types: Cigarettes ??? Smokeless tobacco: Never Used Substance and Sexual Activity ??? Alcohol use: Yes Comment: used EtOH today ??? Drug use: Yes Types: Marijuana, Cocaine ??? Sexual activity: Not on file Other Topics Concern ??? Not on file Social History Narrative ??? Not on file Patient Vitals for the past 8 hrs: BP Temp Temp src Pulse Resp SpO2 Weight 08/29/21 0600 -- 98 ??F (36.7 ??C) Axillary -- -- -- -- 08/29/21 0500 116/72 -- -- 64 23 94 % 72.7 kg (160 lb 3.2 oz) 08/29/21 0400 120/72 98.8 ??F (37.1 ??C) Axillary 64 25 94 % -- 08/29/21 0300 114/67 -- -- 67 15 94 % -- 08/29/21 0245 -- -- -- 68 18 94 % -- 08/29/21 0201 118/70 99.3 ??F (37.4 ??C) Axillary 68 17 94 % -- 08/29/21 0000 122/63 (!) 101.1 ??F (38.4 ??C) Axillary 81 (!) 37 92 % -- 08/28/21 2348 -- (!) 101.1 ??F (38.4 ??C) -- -- -- -- -- Exam: Pupillary reflex intact bilaterally Patient had spontaneous movement of all limbs when off sedation. Assessment Chester Dubose .??is a 51 year old??male??with a pmh of alcohol use disorder (last reported drink 01/06), BP1, cirrhosis and BPH who presented with AMS and SI after ingesting meth. Stroke Type:??Hemorrhagic Stroke Mechanism:??Sympathomimetic Plan ?? Neurological ?? Hemmorrhagic Stroke L parietal-occipital due sympathomimetic drugs - q2h vitals and neurological checks - Stat CT head for any change in neurological examination -??MRI w and wo contrast (08/26) showed no underlying enhancing mass - Head of bed > 30?? - Avoid hypoglycemia, hyponatremia, and hyperthermia -appreciate NSGY recs Sedation -??on propofol and Precedex, will plan to wean off of propofol and keep on Precedex? Seizures - likely provoked due to amphetamine consumption??and intraparenchymal bleeding - Keppra??500 mg BID for seizure??prophylaxes?? BP1 and SI - decreased Seroquel to 50 mg BID for continued agitation -??will??consult psych tomorrow due to SI. Cardiovascular BP: 122-97/72-44 HR: 63-76 ?? No acute issues -??TTE (08/25) showed EF>65% - Blood pressure goal: SBP < 140 - PRN hydralazine IV and labetalol IV for SBP > 140?? - Hemodynamic monitoring - Maintain MAP ~ 65 Respiratory SPO2>92% R 15-37 ?? Iatregenic Intubated at OSH due to sedation - Aspiration precautions - Elevate head of bed - Maintain oxygen saturation > 92% - Monitor for respiratory distress -Vent setting: Spont VT ~500 Support: 12 Peep 5 FiO2 25 RSB: 45 -will plan to??wean pt off vent tomorrow -Pulmonary consulted for ventilation care, appreciate pulm recs. Renal/Electrolytes K 4.1 Mg 1.8 P 2.1 Cr 0.7 UOP ~ 0.2 cc/kg/hr Total IN: 2473 Total OUT: 500 Net 1972 ?? BPH -continue??home med??0.4 mg Flomax Qdaily - Monitor intake and output - Replete electrolytes as needed - ordered NaPhos due to low P - 500 mL fluid challenge over 1 hour to assess pt's volume status. Gastrointestinal ? Cirrohosis 2/2 to alcohol use -continue??home dose??rifaximin and lactulose?? -on TF??45ml, flushes 50ml q4 -following nutrition recs -switched from??Protonix??to Pepcid due to risk of thrombocytopenia with Protonix Budd-Chiari -US abdomen showed portal HTN and hepatic cirrhosis -consulted GI, suggest f/u with outpt tool worker Hematology Hbg 13.2 Plt 75-->76 PTT 18.7 ?? Thrombocytopnia secondary to liver failure - monitor Plt count - Transfuse for hemoglobin < 7.0 g/dL -??started on heparin q8 (08/26-current) for DVT prophylaxis Endocrine ?? Glu 125-141 ?? No acute concerns A1c 08/26 5.1 ?? Infectious Disease WBC 10.4-->7.5 ?? T 98-101.1 MRSA (+) Sputum - Monitor for fevers - ordered vancomycin - will monitor vanc trough lvls - prn Tylenol for fevers Musculoskeletal ? No acute issues Disposition ? -??SW consulted - pending PT/OT - will update family with updated care plan Lines: PIVx2, OGT, ETT The patient was discussed with Dr. Villagomez, Neurology Attending Marcio Jones MS4 * Link, Irma L, DO - 08/29/2021 7:05 AM CDT PULMONARY CONSULT NOTE 08/29/21 7:05 AM Patient Name: Chester Dubose Jr. Date of Admission:08/24/2021 6:40 PM REFERRING TEAM : Neuro Critical Care Team REASON FOR CONSULT: Vent management Brief Hospital Course: HPI: Chester Dubose Jr. is a 51 year old male w/ PMH bipolar disorder, MDD/anxiety c/b prior suicide attempts, substance use (meth, EtOH, cocaine, marijuana), EtOH cirrhosis who presented to [facility] on 08/24 for suicide attempt. Per notes sister stated he ate a bottle of meth. Herecently lost his home and job and took approximately 1 g of methamphetamine. UDS was positive for amphetamines, cannabinoids. He initially was alert however his mentation decompensated and he was noted to have a generalized tonic clonic seizure (time not specified). He was intubated 08/24. CTH at OSH revealed intracerebral bleed. He was sedated with propofol and versed. He also had HTN and was started on mannitol and nicardipine drip. He was transferred to [facility] for neurology evaluation. Upon arrival he was minimally responsive and only having extension of extremities when noxious stimulus applied. Repeat CTH stable and NSGY evaluated patient and no acute intervention recommended. ?? ICU course: 08/24: intubated after tonic clonic seizure 08/27: cEEG with moderate to severe encephalopathy, with very rare left frontal epileptiform discharges, occasional to frequent triphasic waves that were periodic at 2 Hz, and evidence of left temporal dysfunction 08/28: PSV 8/5 FIO2 25% Subjective: Interval History: Overnight remained patient's vent switched to SCMV: rate 10, TV 500, FIO2 25%. Saturating 97-98%. This AM on propofol at 35 and precedex 1.5. EEG report between 08/27-08/28 still with rare frontal epileptiform discharges. OBJECTIVE: Temp: [98 ??F (36.7 ??C)-101.1 ??F (38.4 ??C)] 98 ??F (36.7 ??C) Pulse: [64-81] 64 Resp: [12-37] 23 BP: (97-122)/(44-99) 116/72 O2 %: [25 %] 25 % Intake/Output Summary (Last 24 hours) at 08/29/2021704 Last data filed at 08/29/2021 0600 Gross per 24 hour Intake 1656.73 ml Output 1150 ml Net 506.73 ml Physical Exam: General: Lying in bed, Intubated and sedated HEENT: PERRL, EOMI, MMM, No JVD, OG/ET Tube in place Lungs: CTAB no w/r/r Heart: RRR no m/r/g Abdomen: distended but soft, BS x4 Extremity: No Edema, Pulses 2+ Skin: Warm and dry. No rashes or bruising noted. Neurological: Intubated and Sedated, not following my commands Intake/Output Summary (Last 24 hours) at 08/29/2021704 Last data filed at 08/29/2021 0600 Gross per 24 hour Intake 1656.73 ml Output 1150 ml Net 506.73 ml Vitals Pulse: 64 SpO2: 94 % Ventilator Information Ventilator ID: [id number] Ventilation Rate Set Ventilation Rate (bpm): 10 bpm Observed ventilation rate (bpm): 24 bpm Insp Time (sec): 1 sec Insp Flow (L/Min): 60 l/Min I:E Ratio: 1:4 Actual I:E Ratio: 1:4 f/VT (RSBI): 63 Volumes Set Tidal Volume (mL): 500 ML Exhaled Tidal Volume (ml): 519 ml Spontaneous Tidal Volume (mL): 311 ML Observed Minute Ventilation (L/m): 9.2 Liters/Minute Ventilator Pressures Observed Peak Inspiratory Pressure (cm H2O): 24 cm H2O Pressure Support: 8 cm H2O Plateau Pressure (cm H2O): 12 cm H2O Mean Airway Pressure (cm H2O): 8 cm H2O PEEP/CPAP: 5 cm H20 Safety & Alarms Airway Emergency Supplies Available: Resuscitation Bag Humidity Temp (C): 37 Celsius Humidifier alarm on and functional: Yes Backup Mode Checked: Yes Alarm Volume: 10 High Pressure Alarm (cm H2O): 40 cm H2O Low Minute Ventilation : 3 Low Tidal Volume : 200 ml High Tidal Volume : 1000 Low Resp Rate: 8 High Resp Rate: 40 Apnea alarm (On/Off): On Apnea (secs): 20 secs Pulmonary Suctioning Suctioned?: Yes Suction Mode: ET Tube Secretion Consistency: Thick Secretion Color: Yellow;White Secretions Amount: Scant Hyperoxygenated prior to suctioning?: Yes Labs: CBC: Recent Labs Component Name 08/29/21 0026 08/28/21 0013 08/27/21 0023 WBC 7.5 10.4 8.9 HGB 13.2 14.3 13.6 BMP: Recent Labs Component Name 08/29/21 0026 08/28/21 0013 08/27/21 1043 08/27/21 0023 08/27/21 0023 NA 141 143 140 - 142 CL 111* 112* 109* - 110* CO2 23 23 23 - 24 BUN 17 17 18 - 18 CREATININE 0.70* 0.83 0.66* - 0.62* CALCIUM 7.9* 8.2* 7.9* - 8.2* MAGNESIUM 1.8 1.9 - - 2.3 PHOS 2.1* 1.9* - - 2.7* - = values in this interval not displayed. LFT: Recent Labs Component Name 08/27/21 1043 08/24/21 1936 10/18/18 0542 10/12/18 0006 PROT 6.2 5.9* - 5.0* ALB 2.6* 2.7* - 1.6* ALKPHOS 100 116 107 103 AST 50* 79* 84* 105* ALT 37 46 20 26 Coagulation: Recent Labs Component Name 08/29/21 0026 08/28/21 0013 08/27/21 0023 PT 18.7* 19.7* 19.0* INR 1.6 1.7 1.6 Cardiac markers: Recent Labs Component Name 08/25/21 0420 08/24/21220108/24/21 1936 CKTOTAL - - 409* TROPONINI <0.010 0.014 0.010 MICROBIOLOGY Microbiology Results (Displays last 21 days for this encounter ONLY) Procedure Component Value - Date/Time CULTURE SPUTUM+GRAM STAIN [[id number]] Collected: 08/27/211704 Lab Status: Preliminary result Specimen: Microbiology from Sputum Updated: 08/27/212143 Gram Stain Heavy Gram-positive cocci >= 25 per low power field Polymorphonuclear cells <10 per low power field Squamous epithelial cells CULTURE BLOOD [[id number]] (Normal) Collected: 08/27/211704 Lab Status: Preliminary result Specimen: Blood Peripheral Updated: 08/28/212101 Culture No growth 24 hours CULTURE BLOOD [[id number]] (Normal) Collected: 08/27/211704 Lab Status: Preliminary result Specimen: Blood Peripheral Updated: 08/28/212101 Culture No growth 24 hours IMAGING CXR 08/27/21: Endotracheal tube terminates in the midthoracic trachea. Feeding tube courses below the diaphragm, the tip is off the field of the View. The patient is rotated to the right. ? There are low lung volumes with bronchovascular crowding. No focal consolidation, pleural effusion, or pneumothorax is seen. The cardiomediastinal silhouette is normal. CT chest/abd/pelvis W contrast 08/24/21: 1.No acute finding within the chest. 2.Hepatic cirrhosis with sequela of portal hypertension including splenomegaly and dilated and markedly tortuous splenic vein. 3.A 0.5 cm hyperdense focus in the cecum was not present previously and could represent an ingested object. Medications ??? 0.9% NaCl 3 mL Intracatheter q8h ??? artificial tears Each Eye q8h ??? chlorhexidine 15 mL Mouth/Throat BID ??? famotidine 20 mg Enteral Tube BID ??? heparin 5,000 Units Subcutaneous q8h ??? lactulose 20 g Enteral Tube TID ??? levETIRAcetam 500 mg Enteral Tube BID ??? QUEtiapine 100 mg Enteral Tube BID ??? rifAXIMin 550 mg Enteral Tube BID ??? tamsulosin 0.4 mg Oral QDAY Continuous Medications dexmedeTOMIDine, 0-1.5 mcg/kg/hr, Last Rate: 1.5 mcg/kg/hr (08/29/21517) propofol, 0-80 mcg/kg/min, Last Rate: 35 mcg/kg/min (08/29/21518) PRN Medications ??? SALINE LOCK, INSERT AND MAINTAIN AND 0.9% NaCl AND 0.9% NaCl ??? acetaminophen ??? hydrALAZINE ??? labetalol ASSESSMENT # Intubated for airway protection in setting of acute encephalopathy and tonic clonic seizure # Suicide attempt # MDD/anxiety c/b prior suicide attempts # Substance use (meth, EtOH, cocaine, marijuana) # EtOH Cirrhosis # Tonic clonic seizure RECOMMENDATIONS --continue ventilator support at this time while patient is encephalopathic, lung mechanics appropriate, however, encephalopathy will be limiting factor for extubation --recommend switching to PSV 8/5 FIO2 25% as tolerated --please wean O2 to maintain saturations > 88% ?? Irma Marie DO Pulmonary / Critical Care Fellow Division of Pulmonary, Critical Care, & Sleep Medicine [facility] Associated attestation - Ashutosh Morejon MD - 08/29/2021 9:11 PM CDT Pulmonary Attending Note Care during the described time interval on 08/29/21 was provided by me. I have reviewed this patient's available data, including medical history, events of note, physical examination and test results,and have overseen the activities of the other members of the team under my direct supervision. I agree with the findings and plan of care as documented with the following updates: Patient is a 51 year old male with a PMH of bipolar d/o, substance abuse, & EtOH cirrhosis admitted with intracranial hemorrhage with consult to Pulmonary medicine for vent management. Having difficulty with sedation. Not following commands. Rest per above. Problem List Acute respiratory failure Intracranial hemorrhage Ashutosh Morejon MD [facility] of Pulmonary & Critical Care Medicine [facility] Pager [phone] * Melina Burr RN - 08/28/2021 8:21 PM CDT Problem: Seizures Goal: Seizures are under control or absent Outcome: Progressing Problem: SEIZURE EVENT MONITORING Goal: To record an episode to determine whether or not the episode is a seizure. Outcome: Progressing Problem: Safety related to restraint use Goal: Absence of injury while restrained Outcome: Progressing Problem: Nutrient: Inadequate protein-energy intake Goal: Total intake will meet estimated nutrient needs Outcome: Progressing Problem: Neurological Deficit Goal: Neurological status is stable or improving Outcome: Progressing Problem: Hemodynamic Status/Cardiac Output Goal: Patient has stable vital signs and fluid balance Outcome: Progressing Problem: Oxygenation/Respiratory Function Goal: Respiratory rate/effort will be within specified limits Outcome: Progressing Problem: Mobility Goal: Patient's mobility/activity will be maintained as optimum level for age, diagnosis and physical limitations Outcome: Progressing Goal: Continuum of care needs are further met through referral to outpatient services when appropriate. Outcome: Progressing Goal: Patient reports the ability to perform Activities of Daily Living. Outcome: Progressing Problem: Communication Impairment/Dysarthria Goal: Ability to express needs and understand communication Outcome: Progressing Problem: Nutrition Goal: Nutritional status is improving Outcome: Progressing Problem: Aspiration Precautions Goal: Patient's risk of aspiration is minimized Outcome: Progressing Problem: Glycemic Control Goal: Clinical indication of glycemia balance is achieved Outcome: Progressing Problem: Knowledge Deficit,Education,Discharge Plan Goal: The patient/family will understand cerebrovascular disease and its symptoms, treatment and management Outcome: Progressing Problem: Pain/Discomfort Goal: Patient exhibits reduced pain/discomfort as evidenced by pain scores Outcome: Progressing Goal: Patient uses pharmacological and non-pharmacological pain management strategies. Outcome: Progressing Goal: Patient verbalizes acceptable level of pain relief and ability to engage in desired activity. Outcome: Progressing * Marcio Jones - 08/28/2021 2:01 PM CDT Family Notification Documentation Contact made: 08/28/2021 12:15PM Person contact: Sister Isaias) Method of Communication: Phone Duration of discussion: 10 minutes: Summary of discussion Updated current plan of care and clinical status. * Henrietta Field RN - 08/28/2021 11:27 AM CDT ongoing * Usman Mcdonald MD - 08/28/2021 7:45 AM CDT Neurosurgery Progress Note Chester Dubose 08/28/21 Hospital Day: 4 Subjective: Patient is a 51 year old male with AMS, hypertensive crisis, and seizure-like episode after crystalmeth overdose, found to have left temporoparietal ICH. No acute events overnight. Localizing briskly x4 when sedation paused per nursing staff. Recent/Significant Events: 08/25/21: 51 year old male with AMS, hypertensive crisis, and seizure-like episode after crystal meth overdose, found to have left temporoparietal ICH. Objective: T: 100 ??F (37.8 ??C) [Temp Min: 98.5 ??F (36.9 ??C) Max: 101.2 ??F (38.4 ??C)] BP: 114/59[BP Min: 90/43 Max: 145/82] MAP: 77[MAP (mmHg) Min: 62 Max: 106] HR: 73[Pulse Min: 70 Max: 93] RR: 31[Resp Min: 9 Max: 31] Sat: 97 %[SpO2 Min: 93 % Max: 99 %] ICP: [No data recorded] n/a EVD: n/a Input/Output: 08/27 0701 - 08/28 0700 In: 2781 [I.V.:683] Out: 1150 [Urine:1050] JUAN/Other Drain: n/a Respiratory: CMV PEEP/CPAP: 5 cm H20 Pressure Support: 8 cm H2O Observed Peak Inspiratory Pressure (cm H2O): 15 cm H2O Set Tidal Volume (mL): 500 ML Spontaneous Tidal Volume (mL): 353 ML Exhaled Tidal Volume (ml): 369 ml Labs: Na 143, INR 1.7, Plt 75 Recent Labs Component Name 08/28/21 001 WBC 10.4 HGB 14.3 HCT 42.1 PLTCOUNT 75* Recent Labs Component Name 08/28/21 001 NA 143 POTASSIUM 3.9 CO2 23 BUN 17 CREATININE 0.83 CALCIUM 8.2* GLUCOSE 141* Recent Labs Component Name 08/28/21 0013 08/24/21 1936 10/02/18 1610 INR 1.7 - 1.3 PTT - - 36.9 - = values in this interval not displayed. Imaging: No new neuroimaging Diet: DIET NPO Except: NO EXCEPTIONS DIET TUBE FEEDING CONTINUOUS Fluids: Prop, Precedex MEDICATIONS FOR CURRENT ENCOUNTER: SCHEDULED MEDICATIONS: 0.9% NaCl injection 3 mL, Intracatheter, q8h artificial tears ophthalmic ointment, Each Eye, q8h chlorhexidine (Peridex) 0.12 % oral solution 15 mL, Mouth/Throat, BID famotidine (Pepcid) tablet 20 mg, Enteral Tube, BID heparin injection 5,000 Units, Subcutaneous, q8h lactulose (Chronulac) solution 20 g, Enteral Tube, TID levETIRAcetam (Keppra) tablet 500 mg, Enteral Tube, BID QUEtiapine (SEROquel) tablet 50 mg, Enteral Tube, BID rifAXIMin (Xifaxan) tablet 550 mg, Enteral Tube, BID tamsulosin (Flomax) capsule 0.4 mg, Oral, QDAY ?? [COMPLETED] 0.9% NaCl IV bolus, Intravenous, Once CONTINUOUS MEDICATIONS: dexmedeTOMIDine (Precedex) 400 mcg in 100 mL NS infusion premix, Intravenous, Continuous ?? propofol (Diprivan) infusion, Intravenous, Continuous PRN MEDICATIONS: 0.9% NaCl injection 1-10 mL, Intracatheter, PRN acetaminophen (Tylenol) tablet 500 mg, Enteral Tube, q4h PRN hydrALAZINE (Apresoline) injection 10 mg, Intravenous, q10 min PRN ?? labetalol (Normodyne; Trandate) injection 10 mg, Intravenous, q10 min PRN Neuro: Intubated, sedated, opens eyes to voice, ou3r, +cough/gag, cEEG leads in place, flexes BUE to pain, spontaneous with BLE Assessment: 51 year old male with AMS, hypertensive crisis, and seizure-like episode after crystal meth overdose, found to have left temporoparietal ICH. Plan: -Continue to follow neuro exam, q1h neuro checks -Na goal 140-145 -Plt goal >80k -INR goal equal to or less than 1.5 -Hold any antiplatelets/anticoagulation at this time -Page Neurosurgery with any acute decline in neuro exam and obtain stat head CT -Overall care per NeuroICU Usman Mcdonald MD 7:45 AM 08/28/21 To reach Neurosurgery for questions: From 7am to 5pm please call the [facility] for Neurosurgery From 5pm to 7am please refer to [facility]) to reach the resident supervisor inspection department (changes daily) Secure chat can be used for non-urgent issues only, please expect a reasonable amount of time for responses * Robert Marcio - 08/28/2021 7:11 AM CDT Neuro ICU Progress Note Chester Dubose Jr. Age: [age] year old Date of : 1970 Date of Admission: 08/24/2021 Hospital Day: 4 Hospital Course 08/25: Paused sedation. Ordered MRI of head w. wo contrast to evaluate for tumor etiology for ICH. cEEG showed no seizure activity. Paused sedation to get a better neurological assessment. 08/26: Started patient on Precedex to help wean off of propofol. MRI Head showed no underlying tumors. Started patient on sqh for DVT prophylaxis. 08/27: Switched to Spont Vent. Restarted sedation due to pt agitation. Obtained sputum and blood cultures due to fever. Subjective Mr. Dubose is a 51 y.o. male with a pmh of alcohol use disorder (last reported drink 01/06), BP1,cirrhosis and BPH who presented with AMS and SI after ingesting meth. ?? Information obtain from chart review as patient is sedated: Patient ingested 1g of meth after losing his job, per sister he ate a bottle of meth .??Patient stated he has been very depressed and recently lost his job. States he wanted to end his life.??UDS atOSH showed (+) cannabinoids and amphetamine.??At OSH patient was alert but mention started to decline. BPs in the 180s-200s systolic and HR in the 130s. At OSH there was a witnessed GTC and he was given a sum of 10 mg of ativan and 1000 mg of Keppra. CTH at OSH showed intraparenchymal hematoma in the left parietooccipital lobe with surrounding edema. Patient was placed on propofol and started on nicardipine drip, he was also given mannitol. Pt was transferred to [facility], reports have state he would extend his extremeities to noxious stimuli??on admission. Repeat CTH showed similar findings to OSH. CTA H/N showed no aneurysm and no active bleeding. NSGY consulted for surgery, but declined. Patient was loaded with 3g Keppra.? Patient has hx of cirrhosis with ascites, takes rifampin and lactulose for condition. Ethanol bloodtesting was not done during admission or at OSH. Has hx of previous suicide attempts. ?? Spoke with family who mentioned that pt had previously took Abilify but stopped taking it because he did not like the feeling of being on it. States he takes lactulose, rifampin, Flomax at home. Verfied that pt's pharmacy was at the [facility] in [place], [place]. Mentioned that patient was suppose to have an appoint with his doctor to assess pt's liver via ultrasound. ?? Called [facility] pharmacy which confirmed that patient currently takes Flomax??Patient Glucose Bedside (mg/dL) in the past 48 hrs:??Qdaily and Mirapex 0.25 Qnightly. ?? Interval History: Nurse reports she had to put patient back on higher sedation due to agitation. States over night hewas able to follow commands. Objective Past Medical History: Diagnosis Date ??? Anxiety ??? Bipolar 1 disorder 10/07/2018 ??? Cirrhosis ??? COPD (chronic obstructive pulmonary disease) ??? Delirium tremens ??? Depression ??? Depression ??? Substance abuse ??? Suicide attempt Past Surgical History: Procedure Laterality Date ??? Wrist Fracture Repair Left 10/15/2018 Left; OPEN REDUCTION INTERNAL FIXATION (ORIF) WRIST/DISTAL RADIUS Medications Prior to Admission Medication Sig Dispense Refill ??? Folic Acid (FOLATE PO) Take 1 mg by mouth once daily ??? gabapentin (NEURONTIN) 100 MG capsule Take 100 mg by mouth 3 times daily ??? lactulose (CHRONULAC;ENULOSE) 10 GM/15ML solution Take 15 mL by mouth 3 times daily ??? Multiple Vitamin (MULTIVITAMIN ADULT PO) Take 1 tablet by mouth once daily ??? pramipexole (MIRAPEX) 0.25 MG tablet Take 0.25 mg by mouth once daily ??? tamsulosin (FLOMAX) 0.4 MG capsule Take 0.4 mg by mouth once daily ??? thiamine 100 MG Take 1 tablet by mouth once daily ??? XIFAXAN 550 MG tablet Take 550 mg by mouth 2 times daily Allergy No Known Allergies Family History No family history on file. Social History Social History Socioeconomic History ??? Marital status: Single Spouse name: Not on file ??? Number of children: Not on file ??? Years of education: Not on file ??? Highest education level: Not on file Occupational History ??? Not on file Tobacco Use ??? Smoking status: Former Smoker Packs/day: 1.00 Types: Cigarettes ??? Smokeless tobacco: Never Used Substance and Sexual Activity ??? Alcohol use: Yes Comment: used EtOH today ??? Drug use: Yes Types: Marijuana, Cocaine ??? Sexual activity: Not on file Other Topics Concern ??? Not on file Social History Narrative ??? Not on file Patient Vitals for the past 8 hrs: BP Temp Temp src Pulse Resp SpO2 Weight 08/28/21 0600 114/59 100 ??F (37.8 ??C) Oral 73 31 97 % -- 08/28/21 0500 99/52 -- -- 74 24 98 % -- 08/28/21 0400 109/52 98.6 ??F (37 ??C) Axillary 75 16 98 % 71.5 kg (157 lb 9.6 oz) 08/28/21 0312 -- -- -- 70 22 99 % -- 08/28/21 0300 114/68 98.5 ??F (36.9 ??C) Axillary -- 23 -- -- 08/28/21 0100 103/54 -- -- 71 20 98 % -- 08/28/21 0000 92/52 99 ??F (37.2 ??C) Axillary 76 21 99 % -- Exam: CV: normal rate and rhythm Resp: CTAx2 GI: BS+, soft Neuro: Sedated Doesn't open eyes to voice. Doesn't follow commands Pupils equal and reactive to light. Corneal reflexes intact. Cough and gag intact. No extensor or flexor movement in all extremities in response to noxious stimuli Assessment Chester C Mathenia Jr.??is a 51 year old??male??with a pmh of alcohol use disorder (last reported drink 01/06), BP1, cirrhosis and BPH who presented with AMS and SI after ingesting meth. Stroke Type:??Hemorrhagic Stroke Mechanism:??Sympathomimetic Plan Neurological Hemmorrhagic Stroke L parietal-occipital due sympathomimetic drugs - q2h vitals and neurological checks - Stat CT head for any change in neurological examination - MRI w and wo contrast (08/26) showed no underlying enhancing mass - Head of bed > 30?? - Avoid hypoglycemia, hyponatremia, and hyperthermia -appreciate NSGY recs Sedation -neuro exam was limited due to sedation - placing pt on Precedex, will plan to wean off of propofol and keep on Precedex -when weaned off of propofol at max Precedex, patient becomes agitated Seizures - likely provoked due to amphetamine consumption??and intraparenchymal bleeding - d/sudhir cEEG due to no seizure activity. - Keppra??500 mg BID for seizure??prophylaxes?? BP1 and SI -increased Seroquel to 100 mg BID for continued agitation -??will??consult psych after patient is extubated due to SI. Cardiovascular BP: 114-90/69-43 HR: 70-95 No acute issues - TTE (08/25) showed EF>65% - Blood pressure goal: SBP < 140 - PRN hydralazine IV and labetalol IV for SBP > 140?? - Hemodynamic monitoring - Maintain MAP ~ 65 Respiratory SPO2>92% R10-31 Intubated at OSH due to seizures/sedation - Aspiration precautions - Elevate head of bed - Maintain oxygen saturation > 92% - Monitor for respiratory distress -Vent setting: Spont Vt 353-480 Peep 5 FiO2 35 -will plan to wean pt off vent -CXR (08/26) unremkable -Pulmonary consulted for ventilation care, appreciate pulm recs. Renal/Electrolytes K 3.9 Mg 1.9 P 1.9 Cr 0.83 UOP ~ 0.9 BPH -continue home med 0.4 mg Flomax Qdaily - Monitor intake and output - Replete electrolytes as needed - ordered NaPhos due to low P Gastrointestinal Cirrohosis 2/2 to alcohol use -continue??home dose??rifaximin and lactulose?? 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 Hematology Hbg 14.3 Plt 74-->75 PTT 19.7 Thrombocytopnia secondary to liver failure - monitor Plt count - Transfuse for hemoglobin < 7.0 g/dL - started on heparin q8 (08/26-current) Endocrine Glu 118-141 A1c 08/26 5.1 Infectious Disease WBC 10.4 T 98.6-101.2 (4:00pm) No acute issues - UA on admission is clean - Monitor for fevers - pending sputum and blood cultures -ordered HIV test due to hx of drug use Musculoskeletal No acute issues Disposition - SW consulted -pending PT/OT Lines:PIV x2, OGT, ETT The patient was discussed with , Neuro ICU Attending Marcio Jones MS4 * Irma Marie DO - 08/28/2021 6:58 AM CDT PULMONARY CONSULT NOTE 08/28/21 6:59 AM Patient Name: Chester Dubose Jr. Date of Admission:08/24/2021 6:40 PM REFERRING TEAM : Neuro Critical Care Team REASON FOR CONSULT: Vent management Brief Hospital Course: HPI: Chester Dubose Jr. is a 51 year old male w/ PMH bipolar disorder, MDD/anxiety c/b prior suicide attempts, substance use (meth, EtOH, cocaine, marijuana), EtOH cirrhosis who presented to [facility] on 08/24 for suicide attempt. Per notes sister stated he ate a bottle of meth. Herecently lost his home and job and took approximately 1 g of methamphetamine. UDS was positive for amphetamines, cannabinoids. He initially was alert however his mentation decompensated and he was noted to have a generalized tonic clonic seizure (time not specified). He was intubated 08/24. CTH at OSH revealed intracerebral bleed. He was sedated with propofol and versed. He also had HTN and was started on mannitol and nicardipine drip. He was transferred to [facility] for neurology evaluation. Upon arrival he was minimally responsive and only having extension of extremities when noxious stimulus applied. Repeat CTH stable and NSGY evaluated patient and no acute intervention recommended. ?? ICU course: 08/24: intubated after tonic clonic seizure 08/27: cEEG with moderate to severe encephalopathy, with very rare left frontal epileptiform discharges, occasional to frequent triphasic waves that were periodic at 2 Hz, and evidence of left temporal dysfunction Subjective: Interval History: Overnight remained on ventilator PSV 8/5 FIO2 35%. Saturating 97-98%. This AM on propofol at 15 andprecedex 1.5. OBJECTIVE: Temp: [98.5 ??F (36.9 ??C)-101.2 ??F (38.4 ??C)] 100 ??F (37.8 ??C) Pulse: [69-93] 73 Resp: [9-31] 31 BP: (90-145)/(43-82) 114/59 O2 %: [35 %-40 %] 35 % Intake/Output Summary (Last 24 hours) at 08/28/2021658 Last data filed at 08/28/2021 0600 Gross per 24 hour Intake 2781.02 ml Output 1150 ml Net 1631.02 ml Physical Exam: General: Lying in bed, Intubated and sedated HEENT: PERRL, EOMI, MMM, No JVD, OG/ET Tube in place Lungs: CTAB no w/r/r Heart: RRR no m/r/g Abdomen: distended but soft, BS x4 Extremity: No Edema, Pulses 2+ Skin: Warm and dry. No rashes or bruising noted. Neurological: Intubated and Sedated, not following my commands Intake/Output Summary (Last 24 hours) at 08/28/2021658 Last data filed at 08/28/2021 0600 Gross per 24 hour Intake 2781.02 ml Output 1150 ml Net 1631.02 ml Vitals Pulse: 73 SpO2: 97 % Ventilator Information Ventilator ID: [id number] Ventilation Rate Set Ventilation Rate (bpm): 14 bpm Observed ventilation rate (bpm): 31 bpm Insp Time (sec): 0.84 sec Insp Flow (L/Min): 54 l/Min I:E Ratio: 1:4 Actual I:E Ratio: 1:4 f/VT (RSBI): 59 Volumes Set Tidal Volume (mL): 500 ML Exhaled Tidal Volume (ml): 369 ml Spontaneous Tidal Volume (mL): 353 ML Observed Minute Ventilation (L/m): 8.3 Liters/Minute Ventilator Pressures Observed Peak Inspiratory Pressure (cm H2O): 15 cm H2O Pressure Support: 8 cm H2O Plateau Pressure (cm H2O): 12 cm H2O Mean Airway Pressure (cm H2O): 8 cm H2O PEEP/CPAP: 5 cm H20 Safety & Alarms Airway Emergency Supplies Available: Resuscitation Bag Humidity Temp (C): 37 Celsius Humidifier alarm on and functional: Yes Backup Mode Checked: Yes Alarm Volume: 10 High Pressure Alarm (cm H2O): 40 cm H2O Low Minute Ventilation : 3 Low Tidal Volume : 200 ml High Tidal Volume : 1000 Low Resp Rate: 8 High Resp Rate: 40 Apnea alarm (On/Off): On Apnea (secs): 20 secs Pulmonary Suctioning Suctioned?: Yes Suction Mode: ET Tube Secretion Consistency: Thick Secretion Color: Yellow;White Secretions Amount: Scant Hyperoxygenated prior to suctioning?: Yes Labs: CBC: Recent Labs Component Name 08/28/21 0013 08/27/21 0023 08/26/21 0032 WBC 10.4 8.9 12.8* HGB 14.3 13.6 14.4 BMP: Recent Labs Component Name 08/28/21 0013 08/27/21 1043 08/27/21 0023 08/26/21 0032 08/26/21 0032 NA 143 140 142 - 138 CL 112* 109* 110* - 109* CO2 23 23 24 - 23 BUN 17 18 18 - 18 CREATININE 0.83 0.66* 0.62* - 0.74 CALCIUM 8.2* 7.9* 8.2* - 8.4 MAGNESIUM 1.9 - 2.3 - 2.2 PHOS 1.9* - 2.7* - 4.1 - = values in this interval not displayed. LFT: Recent Labs Component Name 08/27/21 1043 08/24/21 1936 10/18/18 0542 10/12/18 0006 PROT 6.2 5.9* - 5.0* ALB 2.6* 2.7* - 1.6* ALKPHOS 100 116 107 103 AST 50* 79* 84* 105* ALT 37 46 20 26 Coagulation: Recent Labs Component Name 08/28/21 0013 08/27/21 0023 08/26/21 0032 PT 19.7* 19.0* 18.0* INR 1.7 1.6 1.5 Cardiac markers: Recent Labs Component Name 08/25/21 0420 08/24/21 2202 08/24/21 1936 CKTOTAL - - 409* TROPONINI <0.010 0.014 0.010 MICROBIOLOGY Microbiology Results (Displays last 21 days for this encounter ONLY) Procedure Component Value - Date/Time CULTURE SPUTUM+GRAM STAIN [[id number]] Collected: 08/27/211704 Lab Status: Preliminary result Specimen: Microbiology from Sputum Updated: 08/27/212143 Gram Stain Heavy Gram-positive cocci >= 25 per low power field Polymorphonuclear cells <10 per low power field Squamous epithelial cells CULTURE BLOOD [[id number]] Collected: 08/27/211704 Lab Status: In process Specimen: Blood Peripheral Updated: 08/27/211714 CULTURE BLOOD [[id number]] Collected: 08/27/211704 Lab Status: In process Specimen: Blood Peripheral Updated: 08/27/211714 IMAGING CXR 08/27/21: Endotracheal tube terminates in the midthoracic trachea. Feeding tube courses below the diaphragm, the tip is off the field of the View. The patient is rotated to the right. ? There are low lung volumes with bronchovascular crowding. No focal consolidation, pleural effusion, or pneumothorax is seen. The cardiomediastinal silhouette is normal. CT chest/abd/pelvis W contrast 08/24/21: 1.No acute finding within the chest. 2.Hepatic cirrhosis with sequela of portal hypertension including splenomegaly and dilated and markedly tortuous splenic vein. 3.A 0.5 cm hyperdense focus in the cecum was not present previously and could represent an ingested object. Medications ??? 0.9% NaCl 3 mL Intracatheter q8h ??? artificial tears Each Eye q8h ??? chlorhexidine 15 mL Mouth/Throat BID ??? famotidine 20 mg Enteral Tube BID ??? heparin 5,000 Units Subcutaneous q8h ??? lactulose 20 g Enteral Tube TID ??? levETIRAcetam 500 mg Enteral Tube BID ??? QUEtiapine 50 mg Enteral Tube BID ??? rifAXIMin 550 mg Enteral Tube BID ??? tamsulosin 0.4 mg Oral QDAY Continuous Medications dexmedeTOMIDine, 0-1.5 mcg/kg/hr, Last Rate: 1.5 mcg/kg/hr (08/28/21 0418) propofol, 0-80 mcg/kg/min, Last Rate: 15 mcg/kg/min (08/28/21 0552) PRN Medications ??? SALINE LOCK, INSERT AND MAINTAIN AND 0.9% NaCl AND 0.9% NaCl ??? acetaminophen ??? hydrALAZINE ??? labetalol ASSESSMENT # Intubated for airway protection in setting of acute encephalopathy and tonic clonic seizure # Suicide attempt # MDD/anxiety c/b prior suicide attempts # Substance use (meth, EtOH, cocaine, marijuana) # EtOH Cirrhosis # Tonic clonic seizure RECOMMENDATIONS --continue ventilator support at this time while patient is encephalopathic, lung mechanics appropriate, however, encephalopathy will be limiting factor for extubation --currently on PSV 8/5 FIO2 25%, cont as tolerated --please wean O2 to maintain saturations > 88% ?? Patient to be discussed with attending. Irma Marie DO Pulmonary / Critical Care Fellow Division of Pulmonary, Critical Care, & Sleep Medicine [facility] Associated attestation - South Green MD - 08/28/2021 11:00 AM CDT Medical ICU Attending Note I have seen and examined the patient with the resident/fellow. Please see note for further details. In brief, Chester Dubose Jr. is a 51 year old male admitted to the ICU for acute encephalopathy due to ICH and drug overdose. Required intubation for airway protection. ASSESSMENT/PLAN: Critical care was necessary to treat or prevent life-threatening deterioration of the following: Dysphagia POA: Yes Leukocytosis (leucocytosis) POA: Unknown Bipolar 1 disorder POA: Yes Methamphetamine intoxication POA: Yes Intracerebral bleed POA: Yes Ramya coma scale total score 4 or 5 POA: Yes Seizures POA: Yes Endotracheally intubated POA: Yes Intentional drug overdose POA: Yes Thrombocytopenia, secondary POA: Yes Acute respiratory failure with hypoxia POA: Yes Alcoholic cirrhosis of liver without ascites POA: Yes Coagulopathy POA: Yes Suicide attempt POA: Yes The plan of care consists of: Neuro: ICH mx per neuro Sedation with propofol and precedex, cont to wean propofol Neuro checks Respiratory: Cont full vent support on PSV 8/5, wean fio2 for saturation 88%. Mental status is the main barrier for extubation Has excellent lung mechanics and compliance HOB>30; Monitor for Respiratory distress Cardiovascular/Hemodynamics: Hemodynamic monitoring. Goal MAP ~65mmHg GI/Nutrition: TF GI prophylaxis . Renal/lytes: Supportive care Heme: Transfuse if Hb <7.0 gm/dl ID: Antibiotics: none Lines: piv Disposition: ICU monitoring I spent 30 minutes in full attendance with this critically-ill patient. Time spent was exclusive ofseparately billed procedures, treating other patients, and teaching time. I have reviewed and agreewith resident/fellow documentation. Pt. is at high risk for complications and morbidity or mortality Pt. is critically ill with vital organ impairment or failure There is high probability of imminent or life threatening deterioration in the patient's condition Time involved in the performance of separately billable procedures, teaching, reviewing education material was not counted towards critical care time. Patient is unable or incompetent to participate in giving a history and/or making decisions and discussion is necessary for determining treatment decisions. Critical Care Attending: [place] MD * Melina Burr RN - 08/27/2021 8:15 PM CST Problem: Seizures Goal: Seizures are under control or absent Outcome: Progressing Problem: SEIZURE EVENT MONITORING Goal: To record an episode to determine whether or not the episode is a seizure. Outcome: Progressing Problem: Safety related to restraint use Goal: Absence of injury while restrained Outcome: Progressing Problem: Nutrient: Inadequate protein-energy intake Goal: Total intake will meet estimated nutrient needs Outcome: Progressing Problem: Neurological Deficit Goal: Neurological status is stable or improving Outcome: Progressing Problem: Hemodynamic Status/Cardiac Output Goal: Patient has stable vital signs and fluid balance Outcome: Progressing Problem: Oxygenation/Respiratory Function Goal: Respiratory rate/effort will be within specified limits Outcome: Progressing Problem: Mobility Goal: Patient's mobility/activity will be maintained as optimum level for age, diagnosis and physical limitations Outcome: Progressing Goal: Continuum of care needs are further met through referral to outpatient services when appropriate. Outcome: Progressing Goal: Patient reports the ability to perform Activities of Daily Living. Outcome: Progressing Problem: Communication Impairment/Dysarthria Goal: Ability to express needs and understand communication Outcome: Progressing Problem: Nutrition Goal: Nutritional status is improving Outcome: Progressing Problem: Aspiration Precautions Goal: Patient's risk of aspiration is minimized Outcome: Progressing Problem: Glycemic Control Goal: Clinical indication of glycemia balance is achieved Outcome: Progressing Problem: Knowledge Deficit,Education,Discharge Plan Goal: The patient/family will understand cerebrovascular disease and its symptoms, treatment and management Outcome: Progressing Problem: Pain/Discomfort Goal: Patient exhibits reduced pain/discomfort as evidenced by pain scores Outcome: Progressing Goal: Patient uses pharmacological and non-pharmacological pain management strategies. Outcome: Progressing Goal: Patient verbalizes acceptable level of pain relief and ability to engage in desired activity. Outcome: Progressing NO HOST * Sudhakar Bustos RCP - 08/27/2021 7:02 PM CST 08/27/21 1901 ETT Endotracheal Tube Cuffed-inflated Placement Date/Time: 08/24/21 1837 Pre-existing airway in place from:: Outside Facility Device: Endotracheal Tube Tube Type: Cuffed-inflated Tube size (FR): 8 FR Depth of insertion: 23 CM Measured from: teeth Status Intact;Secured;Patent Tube secured at: 23 Insertion Line Measured at: Teeth Device Site Position Center Secured with Securing device Cuff pressure 28 cm H2O Airway Emergency Supplies Available Resuscitation Bag w/PEEP Valve;Appropriate Size Mask HOB>30 degrees Will suction as indicated Pt will be monitored for secretions and will be suctioned as needed to maintain patent airway. NO HOST * Harlan Dunbar MD - 08/27/2021 2:16 PM CST Findings on the US doppler is unchanged from the previous CT, most likely this is a chronic finding. Anticoagulation is contraindicated for the patient given his intraparenchymal bleed. 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 At this time no need to consult IR for TIPS, will defer to primary tool worker. NO HOST * Mariola Oviedo MD - 08/27/2021 12:42 PM CST Family Notification Documentation Contact made: 08/27/2021 12:42 PM Person(s) contacted: Sister ([email or web address]) and Mom Method of communication: In-person Duration of discussion: 10 minutes Summary of discussion Updated current plan of care. They asked about discharge with the SI and rehab, and I said we couldwork on it with our nurse case management. Explained he needs some more time to calm down and then we can extubate, and we will have psychiatry see him once he is extubated. Answered all other questions. NO HOST * Henrietta Field RN - 08/27/2021 12:39 PM CST ongoing NO HOST * Usman Mcdonald MD - 08/27/2021 7:33 AM CST Neurosurgery Progress Note Chester Dubose Jr. 08/27/21 Hospital Day: 3 Subjective: Patient is a 51 year old male with AMS, hypertensive crisis, and seizure-like episode after crystalmeth overdose, found to have left temporoparietal ICH. No acute events overnight. Remains intubated. Recent/Significant Events: 08/25/21: 51 year old male with AMS, hypertensive crisis, and seizure-like episode after crystal meth overdose, found to have left temporoparietal ICH. Objective: T: 97.5 ??F (36.4 ??C) [Temp Min: 97 ??F (36.1 ??C) Max: 98.9 ??F (37.2 ??C)] BP: 107/59[BP Min: 104/62 Max: 137/82] MAP: 78[MAP (mmHg) Min: 75 Max: 107] HR: 69[Pulse Min: 61 Max: 101] RR: 14[Resp Min: 9 Max: 20] Sat: 95 %[SpO2 Min: 93 % Max: 99 %] ICP: [No data recorded] n/a EVD: n/a Input/Output: 08/26 0701 - 08/27 0700 In: 854.2 [I.V.:304.2] Out: 1100 [Urine:1100] JUAN/Other Drain: n/a Respiratory: CMV PEEP/CPAP: 5 cm H20 Observed Peak Inspiratory Pressure (cm H2O): 18 cm H2O Set Tidal Volume (mL): 500 ML Exhaled Tidal Volume (ml): 530 ml Labs: Na 142, 8.6/13.6/39.3/74, INR 1.6 Recent Labs Component Name 08/27/21 0023 WBC 8.9 HGB 13.6 HCT 39.3 PLTCOUNT 74* Recent Labs Component Name 08/27/21 0023 NA 142 POTASSIUM 3.9 CO2 24 BUN 18 CREATININE 0.62* CALCIUM 8.2* GLUCOSE 118* Recent Labs Component Name 08/27/21 0023 08/24/21 1936 10/02/18 1610 INR 1.6 - 1.3 PTT - - 36.9 - = values in this interval not displayed. Imaging: MRI Brain W/Wo Contrast: Resolving left parietal hemorrhage with associated mass effect, no underlying lesions discernable Diet: DIET NPO Except: NO EXCEPTIONS DIET TUBE FEEDING CONTINUOUS Fluids: Prop, Precedex MEDICATIONS FOR CURRENT ENCOUNTER: SCHEDULED MEDICATIONS: 0.9% NaCl injection 3 mL, Intracatheter, q8h artificial tears ophthalmic ointment, Each Eye, q8h chlorhexidine (Peridex) 0.12 % oral solution 15 mL, Mouth/Throat, BID famotidine (Pepcid) tablet 20 mg, Enteral Tube, BID heparin injection 5,000 Units, Subcutaneous, q8h lactulose (Chronulac) solution 20 g, Enteral Tube, TID levETIRAcetam (Keppra) tablet 500 mg, Enteral Tube, BID rifAXIMin (Xifaxan) tablet 550 mg, Enteral Tube, BID ?? tamsulosin (Flomax) capsule 0.4 mg, Oral, QDAY CONTINUOUS MEDICATIONS: dexmedeTOMIDine (Precedex) 400 mcg in 100 mL NS infusion premix, Intravenous, Continuous ?? propofol (Diprivan) infusion, Intravenous, Continuous PRN MEDICATIONS: 0.9% NaCl injection 1-10 mL, Intracatheter, PRN acetaminophen (Tylenol) tablet 500 mg, Enteral Tube, q4h PRN fentaNYL (PF) (Sublimaze) injection 25 mcg, Intravenous, q1h PRN hydrALAZINE (Apresoline) injection 10 mg, Intravenous, q10 min PRN ?? labetalol (Normodyne; Trandate) injection 10 mg, Intravenous, q10 min PRN Neuro: Intubated, sedated, ou3r, +corneals, +cough/gag, cEEG leads in place, no motor in BUE Assessment: 51 year old male with AMS, hypertensive crisis, and seizure-like episode after crystal meth overdose, found to have left temporoparietal ICH. Plan: -Continue to follow neuro exam, q1h neuro checks -Na goal 140-145 -Plt goal >80k -INR goal <1.5 -Hold any antiplatelets/anticoagulation at this time -Page Neurosurgery with any acute decline in neuro exam and obtain stat head CT -Overall care per NeuroICU Usman Mcdonald MD 7:33 AM 08/27/21 To reach Neurosurgery for questions: From 7am to 5pm please call the [facility] for Neurosurgery From 5pm to 7am please refer to [employer]) to reach the resident supervisor inspection department (changes daily) Secure chat can be used for non-urgent issues only, please expect a reasonable amount of time for responses * Mariola Oviedo MD - 08/27/2021 6:46 AM CST Neuro ICU Daily Progress Note Chester Dubose Jr. Age: [age] year old Date of : 1970 Date of Admission: 08/24/2021 Hospital Day: 3 Subjective Hospital Course: Chester Dubsoe Jr. is a 51 year old male with a history of bipolar disorder, polysubstance abuse,and alcoholic cirrhosis who was transferred from OSH on 08/24 for management of IPH. Prior to admission reported to have ingested a bottle of crystal meth (~1g) in a suicide attempt. He then developed seizure like activity and taken to OSH where he was given 10 mg of ativan and 1g Keppra. He was intub ated for airway protection. CTH there showed IPH in the left parietal occipital area and was transferred to [facility] for further management. On [facility] arrival NIHSS was 20 and CTH showed known hemorrhage. CTA was negative for spot sign, and ICH score was 2 on arrival (due to GCS). He was started on nicardipine ggt, given additional 3g Keppra, and admitted to the neuro ICU for further monitoring. He wasstarted on cEEG monitoring due to seizure activity. Interval History: MRI done yesterday. No acute events overnight. Objective Patient Vitals for the past 24 hrs: BP Temp Temp src Pulse Resp SpO2 Weight 08/27/21 0600 118/69 97.5 ??F (36.4 ??C) Rectal 62 14 98 % -- 08/27/21 0500 106/57 -- -- 61 14 95 % -- 08/27/21 0410 111/69 97.3 ??F (36.3 ??C) Axillary 70 15 97 % -- 08/27/21 0408 -- -- -- 70 -- 97 % -- 08/27/21 0400 111/69 97.3 ??F (36.3 ??C) Axillary 78 20 93 % 157 lb 9.6 oz (71.5 kg) 08/27/21 0300 109/62 -- -- 64 14 96 % -- 08/27/21 0200 105/61 97 ??F (36.1 ??C) Axillary 63 14 96 % -- 08/27/21 0100 108/63 -- -- 63 14 96 % -- 08/27/21 0016 -- -- -- 78 -- 95 % -- 08/27/21 0000 104/62 97.6 ??F (36.4 ??C) Axillary 69 14 94 % -- 08/26/21 2200 113/71 97.9 ??F (36.6 ??C) Axillary 75 14 94 % -- 08/26/21 2100 114/65 -- -- 74 14 97 % -- 08/26/212029 -- -- -- -- 14 94 % -- 08/26/211999 125/72 98 ??F (36.7 ??C) Axillary 66 14 99 % -- 08/26/21 1946 -- -- -- 68 -- 98 % -- 08/26/21 1900 116/67 -- -- 75 14 96 % -- 08/26/21 1800 114/67 -- -- 73 16 98 % -- 08/26/21 1700 127/79 -- -- 73 14 98 % -- 08/26/21 1600 130/78 98 ??F (36.7 ??C) -- 70 11 99 % -- 08/26/21 1500 136/86 -- -- 93 13 99 % -- 08/26/21 1400 137/82 -- -- 70 9 99 % -- 08/26/21 1300 121/73 -- -- 90 14 98 % -- 08/26/21 1200 120/80 98.9 ??F (37.2 ??C) -- 94 16 -- -- 08/26/21 1100 124/69 -- -- 94 14 98 % -- 08/26/21 1000 118/67 -- -- 94 14 97 % -- 08/26/21 0900 123/73 -- -- 101 14 96 % -- 08/26/21 0800 118/71 -- -- 96 14 95 % -- 08/26/21 0700 110/61 99.2 ??F (37.3 ??C) Axillary 93 17 -- -- Intake/Output Summary (Last 24 hours) at 08/27/2021 0646 Last data filed at 08/27/2021 0600 Gross per 24 hour Intake 854.24 ml Output 1100 ml Net -245.76 ml Exam: Intubated (sedation paused) No eye opening to voice or stimulation Pupils 3 mm equal and reactive to light, gaze deviated downwards Face appears symmetric with ETT in place Spontaneously sits up out of bed, no spontaneous movements of UE but in LE No response to noxious stimulation in bilateral UE Withdraws to pain in bilateral LE Labs: Recent Labs Component Name 08/27/21 0023 08/26/21 0032 08/25/21 0420 WBC 8.9 12.8* 3.7 RBC 4.32 4.58 5.01 HGB 13.6 14.4 15.8 HCT 39.3 40.9 43.7 Recent Labs Component Name 08/27/21 0023 08/26/212 08/25/210 NA 142 138 137 CL 110* 109* 106 CO2 24 23 20* BUN 18 18 11 CREATININE 0.62* 0.74 0.62* CALCIUM 8.2* 8.4 9.1 Recent Labs Component Name 08/27/21 0023 08/26/21 0032 10/17/18 0400 MAGNESIUM 2.3 2.2 1.6 Recent Labs Component Name 08/27/21 0023 08/26/21 0032 08/25/21 0420 08/24/21 1936 10/02/18 1610 PT 19.0* 18.0* 18.3* - 15.9* INR 1.6 1.5 1.5 - 1.3 PTT - - - - 36.9 - = values in this interval not displayed. Recent Labs Component Name 08/26/2131 HGBA1C 5.1 EAG 100 Recent Labs Component Name 08/25/2141908/24/21220108/24/211935 CKTOTAL - - 409* TROPONINI <0.010 0.014 0.010 Assessment/Plan Chester Dubose . is a 51 year old male presenting for management of IPH in the setting of methamphetamine use and hypertensive emergency. Stroke Type: Hemorrhagic Stroke Mechanism: HTN (drug induced) Neurological #Right Partieto-Occiptial IPH - ICH score of 2 on arrival - Neurosurgery consulted - MRI brain done 08/27 - No additional stroke workup pending - Na goal: normonatremia - SBP goal <140 - Avoid anticoagulants and antiplatelets - q2h neurochecks - Neuroprotective measures: head of bed > 30??, avoid hypoglycemia, hyponatremia, and hyperthermia #Seizure Activity - Likely provoked 2/2 drug use - cEEG with rare left frontal/fronto-central epileptiform discharges, continue monitoring until offpropofol - Continue with Keppra 500 mg BID #Sedation - On propofol ggt - Goal RASS 0 to -1 - Wean propofol and start precedex - Start PO neuroleptic if needed #Polysubstance Abuse #Suicidial Ideation - UDS on admission positive for - ETOH level neg on admission, although unsure if drinking prior to admission - Psychiatry consult when patient extubated for SI Cardiovascular HR: 60 - 70s SBP: 100 - 110s #HTN Emergency, resolved - Off nicardipine ggt - SBP goal <140 - PRN hydralazine and labetolol for SBP >140 TTE (08/25) with EF of 76% - Hemodynamic monitoring - Maintain MAP ~ 65 Respiratory #AHRF - Pulmonary consulted - Mode: CMV, Vt 500, PEEP 5, RR 14, FiO2 40% - Aspiration precautions - Elevate head of bed - Maintain oxygen saturation > 92% - Monitor for respiratory distress Gastrointestinal #Alcholic Cirrhosis - Home medications: lactulose, rifaximin - Continue with home medications - Liver ultrasound (08/26) with non-visualization of hepatic veins 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 #Dysphagia - NGT in place - On TF at 45/hr, FWF 50 q4h GI ppx: pepcid Renal/Electrolytes Intake/Output Summary (Last 24 hours) at 08/27/2021 0714 Last data filed at 08/27/2021 0600 Gross per 24 hour Intake 854.24 ml Output 1100 ml Net -245.76 ml No acute issues - Monitor intake and output - Replete electrolytes as needed Hematology Recent Labs Component Name 08/27/21 0023 WBC 8.9 HGB 13.6 HCT 39.3 PLTCOUNT 74* #Thrombocytopenia - 2/2 liver disease - Transfuse for platelets <50K DVT ppx: sqh Endocrine No acute issues - Accuchecks + SSI Infectious Disease Tmax: 97.3F No acute issues - Monitor for fevers - Clay culture if febrile Musculoskeletal No acute issues LDA: PIVx3, ETT, FMS, NG Diet: tube feeding DVT ppx: sqh Patient seen and discussed with neuro ICU attending, Dr. Hernando Oviedo MD PGY-3, Neurology Associated attestation - Olegario Villagomez MD - 09/06/2021 10:13 AM CDT NEUROCRITICAL CARE SERVICE ATTESTATION I have discussed the case with the Resident. I have personally performed a history, physical exam, and my own medical decision making. Upon my evaluation, this patient had a high probability of imminent or life-threatening deterioration due to ICH, which required my direct attention, intervention, and personal management. I have personally provided 31 minutes of critical care time exclusive of time spent on separately billable procedures. Time includes review of laboratory data, radiology results, discussion with consultants, and monitoring for potential decompensation. Interventions were performed as documented in the resident's note. I have reviewed the note and agree with the findings and plan with additions and modifications as listed below. Date of Service: 08/27/2021 Problem List Present on Admission Intracerebral bleed POA: Yes Dysphagia POA: Yes Leukocytosis (leucocytosis) POA: Unknown Bipolar 1 disorder POA: Yes Methamphetamine intoxication POA: Yes [place] coma scale total score 4 or 5 POA: Yes Seizures POA: Yes Endotracheally intubated POA: Yes Intentional drug overdose POA: Yes Thrombocytopenia, secondary POA: Yes Acute respiratory failure with hypoxia POA: Yes Alcoholic cirrhosis of liver without ascites POA: Yes Coagulopathy POA: Yes Suicide attempt POA: Yes His intrinsic coagulopathy as well as polysubstance abuse make him a higher risk for re hemorrhage.He will need a catheter angiogram once he recovers given the location of this hematoma. Olegario Villagomez MD * Melina Burr RN - 08/27/2021 1:26 AM CST Problem: Seizures Goal: Seizures are under control or absent Outcome: Progressing Problem: SEIZURE EVENT MONITORING Goal: To record an episode to determine whether or not the episode is a seizure. Outcome: Progressing Problem: Safety related to restraint use Goal: Absence of injury while restrained Outcome: Progressing Problem: Nutrient: Inadequate protein-energy intake Goal: Total intake will meet estimated nutrient needs Outcome: Progressing Problem: Neurological Deficit Goal: Neurological status is stable or improving Outcome: Progressing Problem: Hemodynamic Status/Cardiac Output Goal: Patient has stable vital signs and fluid balance Outcome: Progressing Problem: Oxygenation/Respiratory Function Goal: Respiratory rate/effort will be within specified limits Outcome: Progressing Problem: Mobility Goal: Patient's mobility/activity will be maintained as optimum level for age, diagnosis and physical limitations Outcome: Progressing Goal: Continuum of care needs are further met through referral to outpatient services when appropriate. Outcome: Progressing Goal: Patient reports the ability to perform Activities of Daily Living. Outcome: Progressing Problem: Communication Impairment/Dysarthria Goal: Ability to express needs and understand communication Outcome: Progressing Problem: Nutrition Goal: Nutritional status is improving Outcome: Progressing Problem: Aspiration Precautions Goal: Patient's risk of aspiration is minimized Outcome: Progressing Problem: Glycemic Control Goal: Clinical indication of glycemia balance is achieved Outcome: Progressing Problem: Knowledge Deficit,Education,Discharge Plan Goal: The patient/family will understand cerebrovascular disease and its symptoms, treatment and management Outcome: Progressing Problem: Pain/Discomfort Goal: Patient exhibits reduced pain/discomfort as evidenced by pain scores Outcome: Progressing Goal: Patient uses pharmacological and non-pharmacological pain management strategies. Outcome: Progressing Goal: Patient verbalizes acceptable level of pain relief and ability to engage in desired activity. Outcome: Progressing NO HOST * Mariola Oviedo MD - 08/26/2021 4:55 PM CST Family Notification Documentation Contact made: 08/26/2021 4:55 PM Method of communication: In-person Summary of discussion Family updated at bedside in the afternoon. All questions answered. NO HOST * Cm Escobedo RN - 08/26/2021 3:15 PM CST Case Management Progress Note Anticipated level of care at discharge: Acute Rehab Facility, Senior Care - Skilled Facility, Psychiatric Facility Discharge Plan: Remains vented and sedated. Basic Needs Assessment (BNA) Score: Anticipated Discharge Date: Anticipated Discharge Date: 09/04/21 Patient/Family provided with list of resources? Unknown @[email or web address] Reason for provider choice: Unknown Transportation at Discharge: (jennifer determined by disposition) Transportation to MD: Equipment at Home: Equipment At Home: None Additional DME needed: Hunger Screening: Within the past 12 months, you worried that your food would run out before you got the money to buymore.: Never true Within the past 12 months, the food you bought just didn???t last and you didn???t have money to get more.: Never true Medication affordability concerns: Auth Number (if required) NH: DME: Medications: Transportation: Name: Cm Escobedo RN Phone: [phone] NO HOST * Usman Mcdonald MD - 08/26/2021 8:54 AM CST Neurosurgery Progress Note Chester Morgan Sedrick Manuel 08/26/21 Hospital Day: 2 Subjective: Patient is a 51 year old male with AMS, hypertensive crisis, and seizure-like episode after crystalmeth overdose, found to have left temporoparietal ICH. No acute events overnight. Recent/Significant Events: 08/25/21: 51 year old male with AMS, hypertensive crisis, and seizure-like episode after crystal meth overdose, found to have left temporoparietal ICH. Objective: T: 99.2 ??F (37.3 ??C) [Temp Min: 97.8 ??F (36.6 ??C) Max: 99.2 ??F (37.3 ??C)] BP: 110/61[BP Min: 110/61 Max: 133/77] MAP: 77[MAP (mmHg) Min: 77 Max: 95] HR: 93[Pulse Min: 75 Max: 107] RR: 17[Resp Min: 12 Max: 18] Sat: 90 %[SpO2 Min: 90 % Max: 99 %] ICP: [No data recorded] n/a EVD: n/a Input/Output: 08/25 0701 - 08/26 0700 In: 475.9 [I.V.:75.9] Out: 650 [Urine:650] JUAN/Other Drain: n/a Respiratory: VAC PEEP/CPAP: 5 cm H20 Observed Peak Inspiratory Pressure (cm H2O): 18 cm H2O Set Tidal Volume (mL): 500 ML Exhaled Tidal Volume (ml): 448 ml Labs: Na 138 Recent Labs Component Name 08/26/2131 WBC 12.8* HGB 14.4 HCT 40.9 PLTCOUNT 121* Recent Labs Component Name 08/26/2131 NA 138 POTASSIUM 4.2 CO2 23 BUN 18 CREATININE 0.74 CALCIUM 8.4 GLUCOSE 126* Recent Labs Component Name 08/26/213108/24/21 1936 10/02/18 1610 INR 1.5 - 1.3 PTT - - 36.9 - = values in this interval not displayed. Imaging: No new neuroimaging Diet: DIET NPO Except: NO EXCEPTIONS DIET TUBE FEEDING CONTINUOUS Fluids: Prop, Versed, NS MEDICATIONS FOR CURRENT ENCOUNTER: SCHEDULED MEDICATIONS: 0.9% NaCl injection 3 mL, Intracatheter, q8h artificial tears ophthalmic ointment, Each Eye, q8h chlorhexidine (Peridex) 0.12 % oral solution 15 mL, Mouth/Throat, BID lactulose (Chronulac) solution 20 g, Enteral Tube, TID levETIRAcetam (Keppra) tablet 500 mg, Enteral Tube, BID pantoprazole (Protonix) injection 40 mg, Intravenous, QDAY ?? [] 0.9% NaCl injection 10 mL, Intracatheter, intra-Procedure multiple CONTINUOUS MEDICATIONS: ?? propofol (Diprivan) infusion, Intravenous, Continuous PRN MEDICATIONS: 0.9% NaCl injection 1-10 mL, Intracatheter, PRN ?? fentaNYL (PF) (Sublimaze) injection 25 mcg, Intravenous, q1h PRN Neuro: GCS: 4T (E1, V1T, M2) intubated, sedated on propofol and versed, ou=r, +corneals, +cough, extending extremities x4 Assessment: 51 year old male with AMS, hypertensive crisis, and seizure-like episode after crystal meth overdose, found to have left temporoparietal ICH. Plan: -Continue to follow neuro exam, q1h neuro checks -Na goal 140-145 -Hold any antiplatelets/anticoagulation at this time -Page Neurosurgery with any acute decline in neuro exam and obtain stat head CT -Overall care per NeuroICU Usman Mcdonald MD 8:54 AM 08/26/21 To reach Neurosurgery for questions: From 7am to 5pm please call the [facility] for Neurosurgery From 5pm to 7am please refer to [employer]) to reach the resident supervisor inspection department (changes daily) Secure chat can be used for non-urgent issues only, please expect a reasonable amount of time for responses NO HOST * Marcio Jones - 08/26/2021 7:45 AM CST Neuro ICU Progress Note Chester Dubose . Age: [age] year old Date of : 1970 Date of Admission: 08/24/2021 Hospital Day: 2 Hospital Course 08/25: Paused sedation. Ordered MRI of head w. wo contrast to evaluate for tumor etiology for ICH. cEEG showed no seizure activity. Paused sedation to get a better neurological assessment. Subjective Mr. Dubose is a 51 y.o. male with a pmh of alcohol use disorder (last reported drink 01/06), BP1,cirrhosis and BPH who presented with AMS and SI after ingesting meth. ?? Information obtain from chart review as patient is sedated: Patient ingested 1g of meth after losing his job, per sister he ate a bottle of meth . Patient stated he has been very depressed and recently lost his job. States he wanted to end his life. UDS at OSH showed (+) cannabinoids and amphetamine. At OSH patient was alert but mention started to decline.BPs in the 180s-200s systolic and HR in the 130s. At OSH there was a witnessed GTC and he was givena sum of 10 mg of ativan and 1000 mg of Keppra. CTH at OSH showed intraparenchymal hematoma in the left parietooccipital lobe with surrounding edema. Patient was placed on propofol and started on nicardipine drip, he was also given mannitol. Pt was transferred to [facility], reports have state he would ex tend his extremeities to noxious stimuli on admission. Repeat CTH showed similar findings to OSH. CTA H/N showed no aneurysm and no active bleeding. NSGY consulted for surgery, but declined. Patient was loaded with 3g Keppra. ?? Patient has hx of cirrhosis with ascites, takes rifampin and lactulose for condition. Ethanol bloodtesting was not done during admission or at OSH. Has hx of previous suicide attempts. ?? Spoke with family who mentioned that pt had previously took Abilify but stopped taking it because he did not like the feeling of being on it. States he takes lactulose, rifampin, Flomax at home. Verfied that pt's pharmacy was at the [facility] in [place], [place]. Mentioned that patient was suppose to have an appoint with his doctor to assess pt's liver via ultrasound. ?? Called [facility] pharmacy which confirmed that patient currently takes Flomax Patient Glucose Bedside(mg/dL) in the past 48 hrs: Qdaily and Mirapex 0.25 Qnightly. Interval History: Patient was placed back on sedation at 7:30. Nurse reports patient was biting the vent and had a lot of secretions this morning, most of which were greenish. Objective Past Medical History: Diagnosis Date ??? Anxiety ??? Bipolar 1 disorder 10/07/2018 ??? Cirrhosis ??? COPD (chronic obstructive pulmonary disease) ??? Delirium tremens ??? Depression ??? Depression ??? Substance abuse ??? Suicide attempt Past Surgical History: Procedure Laterality Date ??? Wrist Fracture Repair Left 10/15/2018 Left; OPEN REDUCTION INTERNAL FIXATION (ORIF) WRIST/DISTAL RADIUS Medications Prior to Admission Medication Sig Dispense Refill ??? Folic Acid (FOLATE PO) Take 1 mg by mouth once daily ??? gabapentin (NEURONTIN) 100 MG capsule Take 100 mg by mouth 3 times daily ??? lactulose (CHRONULAC;ENULOSE) 10 GM/15ML solution Take 15 mL by mouth 3 times daily ??? Multiple Vitamin (MULTIVITAMIN ADULT PO) Take 1 tablet by mouth once daily ??? pramipexole (MIRAPEX) 0.25 MG tablet Take 0.25 mg by mouth once daily ??? tamsulosin (FLOMAX) 0.4 MG capsule Take 0.4 mg by mouth once daily ??? thiamine 100 MG Take 1 tablet by mouth once daily ??? XIFAXAN 550 MG tablet Take 550 mg by mouth 2 times daily Allergy No Known Allergies Family History No family history on file. Social History Social History Socioeconomic History ??? Marital status: Single Spouse name: Not on file ??? Number of children: Not on file ??? Years of education: Not on file ??? Highest education level: Not on file Occupational History ??? Not on file Tobacco Use ??? Smoking status: Former Smoker Packs/day: 1.00 Types: Cigarettes ??? Smokeless tobacco: Never Used Substance and Sexual Activity ??? Alcohol use: Yes Comment: used EtOH today ??? Drug use: Yes Types: Marijuana, Cocaine ??? Sexual activity: Not on file Other Topics Concern ??? Not on file Social History Narrative ??? Not on file Patient Vitals for the past 8 hrs: BP Temp Temp src Pulse Resp SpO2 08/26/21 0600 125/69 -- -- 93 15 90 % 08/26/21 0500 122/75 -- -- 104 17 91 % 08/26/21 0411 132/77 -- -- 96 12 93 % 08/26/21 0408 -- -- -- 94 -- 93 % 08/26/21 0400 133/77 98.1 ??F (36.7 ??C) Oral 94 14 91 % 08/26/21 0300 133/76 -- -- 107 12 93 % 08/26/21 0200 127/78 -- -- 96 14 95 % 08/26/21 0100 128/71 -- -- 106 14 98 % 08/26/21 0022 -- -- -- 102 -- 97 % 08/26/21 0000 132/73 98.2 ??F (36.8 ??C) Oral 98 15 97 % Exam: CV: normal rate and rhythm Resp: CTAx2 GI: BS+, soft Ext: no c/c/e Cortical Function Sedated Corneal and pupillary reflexes intact. Cough and gag not intact. No response with noxious stimuli Gait Deferred Assessment Chester Dubose Jr. is a 51 year old male with a pmh of alcohol use disorder (last reported drink 01/06), BP1, cirrhosis and BPH who presented with AMS and SI after ingesting meth. Stroke Type: Hemorrhagic Stroke Mechanism: Likely due to HTN secondary to amphetamine consumption, less likely tumor. Plan Neurological Hemmorrhagic Stroke L parietal due to HTN secondary to toxic ingestion - q2h vitals and neurological checks - Stat CT head for any change in neurological examination -pending MRI w and wo contrast to assess for tumors - Head of bed > 30?? - Avoid hypoglycemia, hyponatremia, and hyperthermia -ICH score of 0; patients has a good prognosis for recovery -neuro exam was limited due to sedation - placing pt on Precedex, will plan to wean off of propofol and keep on Precedex -appreciate NSGY recs Seizures - likely provoked due to amphetamine consumption and intraparenchymal bleeding - cEEG until wean off sedation - Keppra 500 mg BID for seizure prophylaxes BP1 -will consult psych for proper antipsychotic medication once patient is more aroused - will consult psych after patient is extubated due to SI. Cardiovascular HR: 94-107 BP: 110-133/61-78 HF? - pending Transthoracic ECHO read - Blood pressure goal: SBP < 140 - PRN hydralazine IV and labetalol IV for SBP > 140 - Hemodynamic monitoring - Maintain MAP ~ 65 Respiratory SPO2 90-98% Intubated at OSH due to seizures/sedation - Aspiration precautions - Elevate head of bed - Maintain oxygen saturation > 92% - Monitor for respiratory distress -Vent setting: CMV Vt 500 Freq 14 Peep 5 FiO2 30 -will plan to wean pt off vent -obtained CXR due to tachy, increased WBC and SPO2<92% to assess for possible effusion or aspiration pneumonia Gastrointestinal TF 45 Cirrohosis 2/2 to alcohol use -continue home dose rifaximin and lactulose -on TF 45 -following nutrition recs -switched from Protonix to Pepcid due to risk of thrombocytopenia with Protonix -ordered US abdomen to assess cirrohosis Renal/Electrolytes Cr 0.74 K 4.2 P 4.1 Mg 2.2 UOP ~0.6 cc/kg/hr BPH -continue homemed 0.4 mg Flomax Qdaily - Monitor intake and output - Replete electrolytes as needed Hematology hbg 14.4 plt 121 Thrombocytopnia secondary to liver failure - monitor Plt count - Transfuse for hemoglobin < 7.0 g/dL - will start patient on heparin q8 tonight Endocrine Glu: 108-132 DM? Last A1C 2019 4.5 -pending A1c to assess for DM, due to normal glucose levels low concern for DM -DC accuchecks due to normal Glu lvls Infectious Disease WBC 3.7--->12.8 No acute issues - UA on admission is clean - Monitor for fevers - Clay culture if febrile -ordered HIV test due to hx of drug use Musculoskeletal No acute issues Disposition - SW consulted -pending PT/OT Lines: PIV, ETT, OGT The patient was discussed with , NeuroCritical Care Attending and Dr. Sutherland, Vascular Neurologist. Marcio Jones MS4 Associated attestation - Susan Reynaga MD - 09/03/2021 8:47 PM CDT Neurocritical Care Attending I have verified the documentation of the medical student including all history, exam, and medical decision-making details. I have personally performed a physical exam and have personally reviewed thedata to support my medical decision-making as outlined in the medical student???s note, and I arrive independently at the same conclusion. See my revisions below: 51M with a 22 cc Lt parietal lobe IPH in the setting of intentional amphetamine overdose, SBP 180s. He was brought to an OSH where he had seizure like acivity aborted with benzos. He was intubated for airway protection. Given mannitol x 1 then transferred to [facility]. CTA no spot sign. Rpt CTH with stable hemorrhage. Exam: EEG leads in place No head trauma Neck supple, no masses CBS, no wheezing, rales, crackles, Regular heart rhythm, no murmurs Abdomen is soft, non-tender Good peripheral pulses Groin okay Intubated, low dose sedation Comatose, no EO to pain Grimaces to pain Does not follow commands midline gaze Pupils OU 3mm reactive, corneals intact, no gag but intact cough RUE minimal flexion LUE minimal flexion RLE minimal flexion LLE minimal flexion Cerebellar and gait tests deferred Problem List Dysphagia POA: Yes Bipolar 1 disorder POA: Yes Methamphetamine intoxication POA: Yes Intracerebral bleed POA: Yes [place] coma scale total score 4 or 5 POA: Yes Seizures POA: Yes Endotracheally intubated POA: Yes Intentional drug overdose POA: Yes Thrombocytopenia, secondary POA: Yes Acute respiratory failure with hypoxia POA: Yes Alcoholic cirrhosis of liver without ascites POA: Yes Coagulopathy POA: Yes Suicide attempt POA: Yes Assessment/Plan Neurology: Lt parietal lobe IPH (ICH score of 1, vol 22cc) - likely hypertensive (amphetamine + in UDS) vs tumor bleed vs vessel malformation Peristroke edema Seizure - provoked vs post IPH Coma Intentional drug overdose Bipolar disorder type 1 SBP control <140 Cont LEV, dc EEG Work-up: Imaging: MRI brain w and w/o contrast Stat CTH with change in exam EEG HOB 30 Na goal - normonatremia Appreciate NSG recs PT/OT/Speech therapy Mobilize patient Neurochecks q2 Sedation/Analgesia - wean off sedation, PRN fent Cardiology: HTN SBP goal: <140 MAP goal: >65 PRN hydralazine and labetalol to reach goal. Wean off cardene. Check cardiac enzymes until it peaks then d/c. Check EKG. Keep on continuous cardiac monitoring. home antihypertensives: N/A Respiratory: Acute respiratory failure 2/2 neurologic injury. Wean O2 to keep sats >94% CXR and ABG reviewed and vent adjusted VAP bundle HOB 30 GI prophylaxis Renal: Monitor I/O every 1 hour - Goal UOP ~ 0.5cc/kg/hr. Check BMPs and replace electrolytes as needed. Keep Mg >2, K >4. Cont IVF until tolerating PO. GI: Dysphagia Cirrhosis - alcoholic, primary biliary Resume home meds Resume lactulose NGT/OGT confirmed Start TF Start BM regimen Check ammonia, trend LFTs weekly, obtain liver US Endo: No issues Dc SSI Goal glucose 140-180 ID: No issues monitor WBC and fever curve. PRN tylenol for fevers. Clay-culture if febrile Heme: Thrombocytopenia 2/2 cirrhosis Coagulopathy 2/2 cirrhosis Hold SQH/lovenox until PBD2; ok with SCDs. Daily CBCs. Transfuse for Hgb <7 and PLT <10 LDA: condom cath, PIV Dispo: ICU Susan Reynaga MD 08/26/2021 Neurocritical Care The patient is at high risk for complications and morbidity or mortality. The patient is criticallyill with vital organ impairment of failure with high probability of imminent or life-threatening deterioration in the patient's condition. Total critical care time = 33 minutes The time involved in teaching, review of educational materials, and performance of separately billable procedures were not included in the time quoted here. Time spent with family meeting was included only if the patient was incapable of providing the necessary information or participating in decision-making of critical decisions regarding the direction of the patient's care. * Gabriele Riley MD - 08/26/2021 6:39 AM CST Vascular Neurology Service I saw and examined the patient with the resident. I have verified all details of the residents' note and agree with the residents documentation with additions and modifications as listed in my separate note. Please refer to the resident's note for plans of active problems not discussed in this note. 51yo M w/ PMH bipolar transferred to [facility] for further management of left parietal IPH (ICH Score 2). OSH reports suicide attempt with overdose of crystal meth prior to presentation. Pt developed GTC and head CT revealed IPH. Pt given mannitol and started on nicardipine gtt at OSH. CTA unremarkable.Suspect hemorrhagic mechanism is related to overdose of methamphetamine in the setting of thrombocytopenia/coagulopathy from liver cirrhosis. Repeat head CT with stable appearance of IPH. #Seizure - provoked due to IPH. On levetiracetam. Routine multidisciplinary rounds were completed today with the presence of the primary team staff, residents, PT/OT/MANAGER MARKETING and CM/SW. Length of stay: 2 Disposition: TBD Date Estimated to be Medically Ready for Discharge: 09/02/2021 Problem List: Present on Admission: ??? Bipolar 1 disorder ??? Methamphetamine intoxication ??? Intracerebral bleed ??? Ramya coma scale total score 4 or 5 ??? Seizures ??? Endotracheally intubated ??? Intentional drug overdose ??? Dysphagia ??? Thrombocytopenia, secondary ??? Acute respiratory failure with hypoxia ??? Alcoholic cirrhosis of liver without ascites ??? Coagulopathy ??? Suicide attempt MEDICATIONS FOR CURRENT ENCOUNTER: SCHEDULED MEDICATIONS: 0.9% NaCl injection 3 mL, Intracatheter, q8h artificial tears ophthalmic ointment, Each Eye, q8h chlorhexidine (Peridex) 0.12 % oral solution 15 mL, Mouth/Throat, BID insulin lispro (HumaLOG;ADMelog) 100 UNIT/ML pen 0-6 Units, Subcutaneous, q4h lactulose (Chronulac) solution 20 g, Enteral Tube, TID levETIRAcetam (Keppra) tablet 500 mg, Enteral Tube, BID pantoprazole (Protonix) injection 40 mg, Intravenous, QDAY ?? [] 0.9% NaCl injection 10 mL, Intracatheter, intra-Procedure multiple CONTINUOUS MEDICATIONS: ?? propofol (Diprivan) infusion, Intravenous, Continuous PRN MEDICATIONS: Or 0.9% NaCl injection 1-10 mL, Intracatheter, PRN dextrose IV 12.5 g, Intravenous, PRN dextrose IV 25 g, Intravenous, PRN fentaNYL (PF) (Sublimaze) injection 25 mcg, Intravenous, q1h PRN glucagon (Glucagen) injection 1 mg, Intramuscular, PRN glucose (Diabetic Use) (Dex4 Glucose) oral liquid, Oral, PRN ?? glucose (Diabetic Use) oral gel, Oral, PRN Patient Vitals for the past 24 hrs: Temp Pulse Resp BP 08/26/21 0600 -- 93 15 125/69 08/26/21 0500 -- 104 17 122/75 08/26/21 0411 -- 96 12 132/77 08/26/21 0408 -- 94 -- -- 08/26/21 0400 98.1 ??F (36.7 ??C) 94 14 133/77 08/26/21 0300 -- 107 12 133/76 08/26/21 0200 -- 96 14 127/78 08/26/21 0100 -- 106 14 128/71 08/26/21 0022 -- 102 -- -- 08/26/21 0000 98.2 ??F (36.8 ??C) 98 15 132/73 08/25/21 2300 -- 93 14 127/72 08/25/21 2200 -- 97 14 126/73 08/25/21 2100 -- 92 14 120/72 08/25/21 2000 98.6 ??F (37 ??C) 92 14 122/73 08/25/21 1900 -- 90 14 118/66 08/25/21 1800 98.6 ??F (37 ??C) 89 14 117/68 08/25/21 1700 -- 93 14 120/71 08/25/21 1600 98.8 ??F (37.1 ??C) 105 12 130/77 08/25/21 1500 -- 88 14 131/76 08/25/21 1400 98.4 ??F (36.9 ??C) 80 14 121/72 08/25/21 1300 -- 82 14 115/70 08/25/21 1200 98.3 ??F (36.8 ??C) 75 14 111/67 08/25/21 1100 -- 84 14 124/82 08/25/21 1000 97.8 ??F (36.6 ??C) 82 18 112/68 08/25/21 0900 -- 84 18 114/67 08/25/21 0800 97.8 ??F (36.6 ??C) 87 18 112/69 08/25/21 0700 -- 85 18 116/69 08/25/21 0645 -- 85 14 117/70 Intake/Output Summary (Last 24 hours) at 08/26/2021 0639 Last data filed at 08/26/2021 0612 Gross per 24 hour Intake 475.91 ml Output 650 ml Net -174.09 ml Labs: No results for input(s): CHOL, TRIG, HDL, VLDL, LDL, LDLCALC, LDLDIRECT, CHOLHDL in the last 41029 hours. No results for input(s): HGBA1C in the last 98507 hours. Recent Labs Component Name 08/26/213108/25/2141908/24/21193510/21/18 0359 10/18/18 0542 10/17/18 0400 10/16/18 0654 10/16/18 0654 10/15/18 0454 10/15/18 0454 NA 138 137 134* - - 138 - 135* - 138 POTASSIUM 4.2 3.8 3.9 3.9 - 3.6 - 3.9 - 3.7 CL 109* 106 104 - - 106 - 105 - 109* CO2 23 20* 22 24 - 22 - 24 - 17* BUN 18 11 10 6* - 5* - 3* - 4* CREATININE 0.74 0.62* 0.66* 0.58* - 0.6 - 0.5* - 0.6 CALCIUM 8.4 9.1 8.0* 8.8 - 8.1* - 8.0* - 8.3* MAGNESIUM 2.2 - - - - 1.6 - 1.5* - 1.5* PHOS 4.1 - - - - 2.8 - 2.4 - 3.0 - = values in this interval not displayed. Recent Labs Component Name 08/26/213108/25/2141908/24/21193510/21/18 0359 WBC 12.8* 3.7 4.5 6.0 HGB 14.4 15.8 12.9 11.2* HCT 40.9 43.7 36.1 36.1 PLTCOUNT 121* 88* 81* 340 RBC 4.58 5.01 4.08* 4.00 Recent Labs Component Name 08/26/213108/25/2141908/24/21193510/02/18 1610 10/02/18 1610 PT 18.0* 18.3* 19.4* - 15.9* INR 1.5 1.5 1.7 - 1.3 PTT - - - - 36.9 - = values in this interval not displayed. Recent Labs Component Name 08/24/212 08/24/21 1936 10/12/18 1327 10/08/18 0926 10/08/18 0926 10/07/18 0900 10/07/18 0900 PH 7.50* 7.40 7.52* - 7.48* - 7.48* PCO2 27* 36 32* - 34* - 37 PO2 193* 173* 75* - 106* - 118* HCO3 - - 25.6 - 24.9 - 26.6* FIO2 40.0 40.0 21.0 - 40.0 - 40.0 - = values in this interval not displayed. Patient Vitals for the past 24 hrs: Glucose Bedside (mg/dL) 08/25/21 2000 132 mg/dL 08/26/21 0000 124 mg/dL 08/26/21 0400 108 mg/dL Micro: Microbiology Results (Displays last 21 days for this encounter ONLY) No results found for the last 504 hours. Gabriele Riley MD Vascular Neurology NO HOST * Connie Graves RN - 08/25/2021 8:32 PM CST Will continue to monitor pt closely NO HOST * Mariola Oviedo MD - 08/25/2021 4:02 PM CST Family Notification Documentation Contact made: 08/25/2021 4:02 PM Person(s) contacted: Mother and Sister Method of communication: In-person Duration of discussion: 15 minutes Summary of discussion Updated during morning rounds and in the afternoon. Explained clinical course and answered all questions NO HOST * Cm Escobedo RN - 08/25/2021 3:15 PM CST Case Management Stroke Psychosocial Assessment Case Management screen completed & Welcome Letter given. Diagnosis: The primary encounter diagnosis was Alcohol dependence with withdrawal delirium. Diagnoses of Intentional drug overdose, 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, Nontraumatic intracerebral hemorrhage, unspecified cerebral location, unspecified laterality, Dysphagia, unspecified type, and Cirrhosis of liver wit hout ascites, unspecified hepatic cirrhosis type were also pertinent to this visit. Met with mother Discharge Goals and Plans Plans: No discharge needs identified at this time. Consult Case Management if discharge planning needs arrise. Anticipated Discharge Date: 09/04/21 Pt lives alone and is currently being evicted. Mother unsure of discharge plan destination due to behavior issues. Per mother he has a long history of drug and alcohol abuse. Family Support (name and phone): Extended Emergency Contact Information Primary Emergency Contact: Henok Stahl [facility] Mobile Relation: Friend Secondary Emergency Contact: Benson Dubose [facility] Mobile Relation: Sister Mother: tracee dubose Mobile Anticipated level of care at discharge: Acute Rehab Facility, Senior Care - Skilled Facility, Psychiatric Facility For patients discharging home with Home Health, [facility] or other outpatient services, has thefamily or caregiver been assessed to determine their skills, capacity and resources available to meet the patient needs: No If patient requires HHC at discharge, he/she requests: Transportation at Discharge: Transportation at discharge: (jennifer determined by disposition) Equipment at Home: Equipment At Home: None Additional equipment needed at home but does not have: Pharmacy benefit: Yes Medication affordability concerns: No Hunger Screening: Within the past 12 months, you worried that your food would run out before you got the money to buymore.: Never true Within the past 12 months, the food you bought just didn???t last and you didn???t have money to get more.: Never true Anodizing Line Operator Referral: Yes Community Resources provided: Patient and/or Family Questions/Concerns: none Will continue to follow. For any questions or needs please contact: Sink Maker Name/Phone number: Cm Escobedo RN [phone] NO HOST * Marcio Jones - 08/25/2021 1:17 PM CST Neuro ICU Progress Note Chester Dubose Jr. Age: [age] year old Date of : 1970 Date of Admission: 08/24/2021 Hospital Day: 1 Hospital Course Subjective Mr. Dubose is a 51 y.o. male with a pmh of alcohol use disorder (last reported drink 01/06), BP1,cirrhosis and BPH who presented with AMS and SI after ingesting meth. Information obtain from chart review as patient is sedated: Patient ingested 1g of meth after losing his job, per sister he ate a bottle of meth . Patient stated he has been very depressed and recently lost his job. States he wanted to end his life. UDS at OSH showed (+) cannabinoids and amphetamine. At OSH patient was alert but mention started to decline.BPs in the 180s-200s systolic and HR in the 130s. At OSH there was a witnessed GTC and he was givena sum of 10 mg of ativan and 1000 mg of Keppra. CTH at OSH showed intraparenchymal hematoma in the left parietooccipital lobe with surrounding edema. Patient was placed on propofol and started on nicardipine drip, he was also given mannitol. Pt was transferred to [facility], reports have state he would ex tend his extremeities to noxious stimuli on admission. Repeat CTH showed similar findings to OSH. CTA H/N showed no aneurysm and no active bleeding. NSGY consulted for surgery, but declined. Patient was loaded with 3g Keppra. Patient has hx of cirrhosis with ascites, takes rifampin and lactulose for condition. Ethanol bloodtesting was not done during admission or at OSH. Has hx of previous suicide attempts. Spoke with family who mentioned that pt had previously took Abilify but stopped taking it because he did not like the feeling of being on it. States he takes lactulose, rifampin, Flomax at home. Verfied that pt's pharmacy was at the [facility] in [place], [place]. Mentioned that patient was suppose to have an appoint with his doctor to assess pt's liver via ultrasound. Called [facility] pharmacy which confirmed that patient currently takes Flomax Patient Glucose Bedside(mg/dL) in the past 48 hrs: Qdaily and Mirapex 0.25 Qnightly. Objective Past Medical History: Diagnosis Date ??? Anxiety ??? Bipolar 1 disorder 10/07/2018 ??? Cirrhosis ??? COPD (chronic obstructive pulmonary disease) ??? Delirium tremens ??? Depression ??? Depression ??? Substance abuse ??? Suicide attempt Past Surgical History: Procedure Laterality Date ??? Wrist Fracture Repair Left 10/15/2018 Left; OPEN REDUCTION INTERNAL FIXATION (ORIF) WRIST/DISTAL RADIUS Medications Prior to Admission Medication Sig Dispense Refill ??? acetaminophen (TYLENOL) 325 MG tablet Take 3 tablets by mouth 3 times daily Maximum allowable Acetaminophen amount = 4 Grams (4000 mg) / 24 hours. ??? ARIPiprazole (ABILIFY) 10 MG tablet 0 ??? artificial tears ophthalmic ointment Instill into both eyes every 8 hours ??? famotidine (PEPCID) 20 MG tablet 0 ??? ferrous sulfate 325 (65 FE) MG tablet Take 1 tablet by mouth daily with breakfast ??? folic acid (FOLVITE) 1 MG tablet 1 tablet by Enteral Tube route once daily ??? guanFACINE (TENEX) 1 MG tablet Take 0.5 tablets by mouth 2 times daily ??? guanFACINE CR 24hr (INTUNIV) 1 MG tablet 0 ??? haloperidol lactate (HALDOL) injection Inject 1 mL into muscle every 6 hours as needed for Agitation ??? lamoTRIgine (LAMICTAL) 25 MG tablet 0 ??? melatonin 3 MG tablet Take 2 tablets by mouth at bedtime ??? multivitamin daily tablet Take 1 tablet by mouth once daily ??? polyethylene glycol 3350 (MIRALAX) packet Take 17 g by mouth once daily ??? tamsulosin (FLOMAX) 0.4 MG capsule Take 0.4 mg by mouth once daily ??? thiamine 100 MG Take 1 tablet by mouth once daily Allergy No Known Allergies Family History No family history on file. Social History Social History Socioeconomic History ??? Marital status: Single Spouse name: Not on file ??? Number of children: Not on file ??? Years of education: Not on file ??? Highest education level: Not on file Occupational History ??? Not on file Tobacco Use ??? Smoking status: Former Smoker Packs/day: 1.00 Types: Cigarettes ??? Smokeless tobacco: Never Used Substance and Sexual Activity ??? Alcohol use: Yes Comment: used EtOH today ??? Drug use: Yes Types: Marijuana, Cocaine ??? Sexual activity: Not on file Other Topics Concern ??? Not on file Social History Narrative ??? Not on file Patient Vitals for the past 8 hrs: BP Temp Temp src Pulse Resp SpO2 Height 08/25/21 1200 111/67 98.3 ??F (36.8 ??C) Oral 75 14 98 % -- 08/25/21 1100 124/82 -- -- 84 14 99 % -- 08/25/21 1000 112/68 97.8 ??F (36.6 ??C) Oral 82 18 99 % -- 08/25/21 0900 114/67 -- -- 84 18 99 % -- 08/25/21 0800 112/69 97.8 ??F (36.6 ??C) Oral 87 18 99 % 1.829 m (6') 08/25/21 0700 116/69 -- -- 85 18 99 % -- 08/25/21 0645 117/70 -- -- 85 14 99 % -- 08/25/21 0630 115/69 -- -- 86 18 99 % -- 08/25/21 0615 112/70 -- -- 84 (!) 7 99 % -- 08/25/21 0600 114/71 -- -- 84 18 99 % -- 08/25/21 0545 112/71 -- -- 83 18 99 % -- 08/25/21 0530 114/69 -- -- 84 18 99 % -- Exam: CV:normal rate and rhythm, peripheral pulses intact Resp: CTAx2 GI: BS+, soft Ext: No edema Neuro: Sedated Patient doesn't respond to commands Cough and gag not intact Pupils equal and reactive to light Corneal reflex intact Gait deferred Assessment Chester Dubose is a 51 year old male with a pmh of alcohol use disorder (last reported drink 01/06), BP1, cirrhosis and BPH who presented with AMS and SI after ingesting meth. Stroke Type: Hemorrhagic Stroke Mechanism: Likely due to HTN secondary to amphetamine consumption, less likely tumor. Plan Neurological Hemmorrhagic Stroke L parietal due to HTN secondary to toxic ingestion - q1h vitals and neurological checks - Stat CT head for any change in neurological examination -MRI w and wo contrast to assess for tumors - Head of bed > 30?? - Avoid hypoglycemia, hyponatremia, and hyperthermia -ICH score of 0; patients has a good prognosis for recovery -neuro exam was limited due to sedation - will pause sedation to get accurate neuro check Seizures - likely provoked due to amphetamine consumption and intraparenchymal bleeding - cEEG to assess for further seizures - Keppra 500 mg BID for seizure prophylaxes - maintain propofol sedation until scans completed -ordered blood EtoH lvls BP1 -will consult psych for proper antipsychotic medication once patient is more aroused - will consult psych after patient is extubated due to SI. Cardiovascular BP: 110-124/68-82 HR 72-98 HF? 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 due to intracranial bleeding Endocrine DM? Last A1C 2019 4.5 -ordered A1c to assess for DM - Accuchecks + SSI Infectious Disease T: 98.5-99 No acute issues - UA is clean - Monitor for fevers - Clay culture if febrile Musculoskeletal No acute issues Disposition - CW consulted -pending PT/OT Lines:PIV, ETT, OGT Individual Modifiable Risk Factors Hypertension: no Hyperlipidemia: no Diabetes: no Atrial Fibrillation: no Tobacco: yes The patient was discussed with , Neurocritical Care Attending Marcio Jones MS4 NO HOST Associated attestation - Susan Reynaga MD - 08/25/2021 7:25 PM CASINO HOST Neurocritical Care Attending I have verified the documentation of the medical student including all history, exam, and medical decision-making details. I have personally performed a physical exam and have personally reviewed thedata to support my medical decision-making as outlined in the medical student???s note, and I arrive independently at the same conclusion. See my revisions below: 51M with a 22 cc Lt parietal lobe IPH in the setting of intentional amphetamine overdose, SBP 180s. He was brought to an OSH where he had seizure like acivity aborted with benzos. He was intubated for airway protection. Given mannitol x 1 then transferred to [facility]. CTA no spot sign. Rpt CTH with stable hemorrhage. Exam: BP 118/66 Pulse 90 Temp 98.6 ??F (37 ??C) (Oral) Resp 14 Ht 1.829 m (6') Wt 71.9 kg (158 lb 9.6 oz)SpO2 97% BMI 21.51 kg/m2 EEG leads in place No head trauma Neck supple, no masses CBS, no wheezing, rales, crackles, Regular heart rhythm, no murmurs Abdomen is soft, non-tender Good peripheral pulses Groin okay Intubated, sedated Comatose, no EO to pain Does not follow commands Speech clear and coherent midline gaze Pupils OU 3mm reactive, corneals intact, no gag but intact cough RUE no movement to pain LUE no movement to pain RLE no movement to pain LLE no movement to pain Cerebellar and gait tests deferred Problem List Dysphagia POA: Yes Bipolar 1 disorder POA: Yes Methamphetamine intoxication POA: Yes Intracerebral bleed POA: Yes [place] coma scale total score 4 or 5 POA: Yes Seizures POA: Yes Endotracheally intubated POA: Yes Intentional drug overdose POA: Yes Thrombocytopenia, secondary POA: Yes Acute respiratory failure with hypoxia POA: Yes Alcoholic cirrhosis of liver without ascites POA: Yes Coagulopathy POA: Yes Suicide attempt POA: Yes Assessment/Plan Neurology: Lt parietal lobe IPH (ICH score of 1, vol 22cc) - likely hypertensive (amphetamine + in UDS) vs tumor bleed vs vessel malformation Peristroke edema Seizure - provoked vs post IPH Coma Intentional drug overdose Bipolar disorder type 1 SBP control <140 Stop sedation Cont LEV Work-up: Imaging: MRI brain w and w/o contrast Stat CTH with change in exam EEG HOB 30 Na goal - normonatremia Appreciate NSG recs PT/OT/Speech therapy Mobilize patient Neurochecks q1 Sedation/Analgesia - stop sedation, PRN fent Cardiology: HTN SBP goal: <140 MAP goal: >65 PRN hydralazine and labetalol to reach goal. Wean off cardene. Check cardiac enzymes until it peaks then d/c. Check EKG. Keep on continuous cardiac monitoring. home antihypertensives: N/A Respiratory: Acute respiratory failure 2/2 neurologic injury. Wean O2 to keep sats >94% CXR and ABG reviewed and vent adjusted VAP bundle HOB 30 GI prophylaxis Renal: Monitor I/O every 1 hour - Goal UOP ~ 0.5cc/kg/hr. Check BMPs and replace electrolytes as needed. Keep Mg >2, K >4. Cont IVF until tolerating PO. GI: Dysphagia Cirrhosis - alcoholic, primary biliary Resume home meds Resume lactulose NGT/OGT confirmed Start TF Start BM regimen Check ammonia, trend LFTs weekly, obtain liver US Endo: No issues check hba1c, check tsh. Dc SSI Goal glucose 140-180 ID: No issues monitor WBC and fever curve. PRN tylenol for fevers. Clay-culture if febrile Heme: Thrombocytopenia 2/2 cirrhosis Coagulopathy 2/2 cirrhosis Hold SQH/lovenox until PBD2; ok with SCDs. Daily CBCs. Transfuse for Hgb <7 and PLT <10 LDA: condom cath, PIV Dispo: ICU Susan Reynaga MD 08/25/2021 Neurocritical Care The patient is at high risk for complications and morbidity or mortality. The patient is criticallyill with vital organ impairment of failure with high probability of imminent or life-threatening deterioration in the patient's condition. Total critical care time = 40 minutes The time involved in teaching, review of educational materials, and performance of separately billable procedures were not included in the time quoted here. Time spent with family meeting was included only if the patient was incapable of providing the necessary information or participating in decision-making of critical decisions regarding the direction of the patient's care. * Katia Anderson RN - 08/25/2021 12:00 PM CST Will continue to monitor neurological status closely. NO HOST * Linh Lin OT - 08/25/2021 11:35 AM CST [facility] Department of Physical Medicine & Rehabilitation Progress Note Patient: Chester Dubose Jr. Med Record Number: [id number] Date of : 1970 Age: [age] year old 08/25/21 1100 Therapy on Hold Therapy on Hold Chart Reviewed Hold per daily stroke rounds. Pt is on bedrest and will require updated activity order prior to mobility. NO HOST * Arnie Chand - 08/25/2021 9:27 AM CST Social Work Progress Note Discharge Plan Disposition: SW reviewed Pt's chart and attended Stroke Rounds. OT/PT have been placed on hold; Pt is not medically ready to discharge at this time. SW visited Pt at bedside. SW contacted Pt's mother& sister to make introduction and provide contact information. SW will continue to follow to assist with disposition. Transportation (if ambulance rationale): Transportation at discharge: (jennifer determined by disposition) Anticipated Discharge Date: Anticipated Discharge Date: 09/04/21 Contacts: Extended Emergency Contact Information Primary Emergency Contact: Henok Stahl [facility] Mobile Relation: Friend Secondary Emergency Contact: Benson Dubose [facility] [employer] Relation: Sister Mother: tracee dubose Mobile Have they been contacted? Yes PIPER Dumont MBA Anodizing Line Operator [phone] 08/25/2021 9:27 AM NO HOST * Linh Horvath PT - 08/25/2021 9:00 AM CST [facility] Department of Physical Medicine & Rehabilitation Progress Note Patient: Chester Dubose Jr. Med Record Number: [id number] Date of : 1970 Age: [age] year old 08/25/21 0900 Therapy on Hold Therapy on Hold Chart Reviewed;New Order Required for Therapy Pt is currently intubated and sedated, not appropriate for mobility at this time. Please re-order when medically appropriate to participate. NO HOST * Usman Mcdonald MD - 08/25/2021 7:18 AM CST Neurosurgery Progress Note Chester Dubose JrDenis 08/25/21 Hospital Day: 1 Subjective: Patient is a 51 year old male with AMS, hypertensive crisis, and seizure-like episode after crystalmeth overdose, found to have left temporoparietal ICH. No acute events overnight. Exam remains stable. Recent/Significant Events: 08/25/21: 51 year old male with AMS, hypertensive crisis, and seizure-like episode after crystal meth overdose, found to have left temporoparietal ICH Objective: T: 99 ??F (37.2 ??C) [Temp Min: 97.6 ??F (36.4 ??C) Max: 99 ??F (37.2 ??C)] BP: 116/69[BP Min: 105/64 Max: 121/75] MAP: 84[MAP (mmHg) Min: 72 Max: 92] HR: 85[Pulse Min: 72 Max: 98] RR: 18[Resp Min: 0 Max: 19] Sat: 99 %[SpO2 Min: 99 % Max: 100 %] ICP: [No data recorded] n/a EVD: n/a Input/Output: 08/24 0701 - 08/25 0700 In: 265.2 [I.V.:265.2] Out: 1650 [Urine:1650] JUAN/Other Drain: n/a Respiratory: VAC PEEP/CPAP: 5 cm H20 Observed Peak Inspiratory Pressure (cm H2O): 19 cm H2O Set Tidal Volume (mL): 500 ML Exhaled Tidal Volume (ml): 476 ml Labs: Na 137 Recent Labs Component Name 08/25/21 0420 WBC 3.7 HGB 15.8 HCT 43.7 PLTCOUNT 88* Recent Labs Component Name 08/25/21419 NA 137 POTASSIUM 3.8 CO2 20* BUN 11 CREATININE 0.62* CALCIUM 9.1 GLUCOSE 162* Recent Labs Component Name 08/25/21 0420 08/24/21 1936 10/02/18 1610 INR 1.5 - 1.3 PTT - - 36.9 - = values in this interval not displayed. Imaging: CT Head: Stable right parietal hemorrhage with stable surrounding mass effect, no midline shift Diet: DIET NPO Except: NO EXCEPTIONS Fluids: Prop, Versed, NS MEDICATIONS FOR CURRENT ENCOUNTER: ?? SCHEDULED MEDICATIONS: ?? 0.9% NaCl injection 3 mL, Intracatheter, q8h ?? artificial tears ophthalmic ointment, Each Eye, q8h ?? chlorhexidine (Peridex) 0.12 % oral solution 15 mL, Mouth/Throat, BID ?? iopamidol (Isovue 370) 76 % contrast, Intravenous, Contrast - Once ?? levETIRAcetam (Keppra) tablet 500 mg, Enteral Tube, BID ?? pantoprazole (Protonix) injection 40 mg, Intravenous, QDAY ?? [COMPLETED] levETIRAcetam (Keppra) 2,750 mg in 0.9% NaCl IV 277.5 mL IVPB, Intravenous, Once ?? CONTINUOUS MEDICATIONS: ?? niCARdipine (Cardene) 25 mg in 0.9% NaCl IV 250 mL infusion, Intravenous, Continuous ?? propofol (Diprivan) infusion, Intravenous, Continuous ?? PRN MEDICATIONS: ?? 0.9% NaCl injection 1-10 mL, Intracatheter, PRN ?? fentaNYL (PF) (Sublimaze) injection 50 mcg, Intravenous, q1h PRN Neuro: GCS: 4T (E1, V1T, M2) intubated, sedated on propofol and versed, ou=r, +corneals, +cough, extending extremities x4 Assessment: 51 year old male with AMS, hypertensive crisis, and seizure-like episode after crystal meth overdose, found to have left temporoparietal ICH. Plan: -Continue to follow neuro exam, q1h neuro checks -Na goal 140-145 -Hold any antiplatelets/anticoagulation at this time -Page Neurosurgery with any acute decline in neuro exam and obtain stat head CT -Overall care per NeuroICU Usman Mcdonald MD 7:19 AM 08/25/21 To reach Neurosurgery for questions: From 7am to 5pm please call the [facility] for Neurosurgery From 5pm to 7am please refer to [employer]) to reach the resident supervisor inspection department (changes daily) Secure chat can be used for non-urgent issues only, please expect a reasonable amount of time for responses NO HOST * Connie Graves RN - 08/25/2021 1:52 AM CST Pt is sedated and intubated, no evidence of learning. Mother called and updated of patient's current condition. NO HOST * Nilson Rondon RCP - 08/24/2021 6:58 PM CST Intubated pt received from OSH, placed on VENT and transported to . Nilson Rondon RCP NO HOST documented in this encounter H&P Notes * Angelita Gaitan - 08/30/2021 12:35 PM CDT [facility] Consult Psychiatry History and Physical Name: Chester Dubose Jr. Age: [age] year old Date of : 1970 Location: [facility] Reason for consult: Suicidal attempt by consuming an entire bottle of crystal meth. Level of consult: One-time consult to assist in determining a diagnosis and to recommend an appropriate treatment plan Chief Complaint: Neurology consult History of Present Illness: Chester Dubose Jr. is a 51 year old , male with a history of bipolar disorder who presented, per note, to the ED as a [facility]. The patient had presented to OSH after consuming an entire bottle of meth. On UDS he was + for Methamphetamines and Benzodiazepines. Consult for Psychiatry was requested on 08/30/2021. Collateral: Per sister, Benson Dubose, the patient had been acting strangely the days leading to August 24. He was forgetting stuff, like paying rent and his speech was described as word salad, he also gave away her cat for her to take care of. On August 24 she called --1 and before getting in the vehicleDanny consumed an entire bottle of crystal meth. She states that Chester has a history of bipolar disorder and long history of substance abuse like alcohol, meth and marijuana. The sister states that Chester has been rehab facilities, but usually always goes back to drugs. Chester was currently evicted from [place], where he used to live alone with his cat. He hasnever been and does not have children. He is on disability due to borderline schizophrenia with psychotic features and bipolar disorder he has not been on his antipsychotic medications in a few years. Chester saw a psychiatrist in the past. 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 FMHx: Benson states that her dad may have had a behaviroal disorder , but is not sure since she doesn't speak to him since her parents . Home Medications: No Known Allergies Medications Prior to Admission Medication Sig Dispense Refill ??? Folic Acid (FOLATE PO) Take 1 mg by mouth once daily ??? gabapentin (NEURONTIN) 100 MG capsule Take 100 mg by mouth 3 times daily ??? lactulose (CHRONULAC;ENULOSE) 10 GM/15ML solution Take 15 mL by mouth 3 times daily ??? Multiple Vitamin (MULTIVITAMIN ADULT PO) Take 1 tablet by mouth once daily ??? pramipexole (MIRAPEX) 0.25 MG tablet Take 0.25 mg by mouth once daily ??? tamsulosin (FLOMAX) 0.4 MG capsule Take 0.4 mg by mouth once daily ??? thiamine 100 MG Take 1 tablet by mouth once daily ??? XIFAXAN 550 MG tablet Take 550 mg by mouth 2 times daily Past psychiatric history: Patient has been hospitalized before, per sister, was not able to give specific details. Psychiatric Hospitalization: Most recent: Number of admissions/Reason: Previous suicide attempts: Most recent: Number of attempts Prior suicidal ideations: Prior self harm: Outpatient Psychiatrist/ Therapist: Seen therapist in the past, according to sister. Prior Diagnosis:Bipolar disorder Prior Medication Trials: seroquel Social history: Per: Sister, Benson Dubose Living situation: alone at a [place] Marriage/ Relationship: single Employment History: not employed on disability Education: GED History of Trauma or abuse: no Substance Use History: Tobacco: history of 10 + yr, recently smoking cigars Alcohol: 30+ years in the past Illicit Substances: Methamphetamines, marijuana Family Psychiatric History: Denies Suicide: Mental Illness: Substance Abuse: Past Medical History Past Medical History: Diagnosis Date ??? Anxiety ??? Bipolar 1 disorder 10/07/2018 ??? Cirrhosis ??? COPD (chronic obstructive pulmonary disease) ??? Delirium tremens ??? Depression ??? Depression ??? Substance abuse ??? Suicide attempt Allergies No Known Allergies Family Medical History: No family history on file. Review of Systems: Constitutional: Did not voice fevers. Eyes: Did not voice visual loss Ears, nose, mouth, throat, and face: Did not voice hearing loss Respiratory: Did not voice acute cough Cardiovascular: Did not voice palpitations Gastrointestinal: Did not voice vomiting Genitourinary: Did not voice dysuria Integument/breast: Did not voice rash Musculoskeletal: Did not voice muscle weakness Neurological: Did not voice headaches Psychiatric: See HPI Physical Exam History Patient Vitals for the past 24 hrs: BP Temp Temp src Pulse Resp SpO2 08/30/21 1200 141/78 98.9 ??F (37.2 ??C) Oral 69 (!) 38 95 % 08/30/21 1100 115/71 -- -- 73 29 98 % 08/30/21 1000 102/56 -- -- 69 15 96 % 08/30/21 0900 111/66 -- -- 72 25 96 % 08/30/21 0800 108/55 98.3 ??F (36.8 ??C) Axillary 70 21 97 % 08/30/21 0700 105/54 -- -- 68 27 97 % 08/30/21 0600 104/55 -- -- 60 24 94 % 08/30/21 0500 107/57 -- -- 58 30 94 % 08/30/21 0432 -- -- -- 60 -- 95 % 08/30/21 0400 115/66 98.8 ??F (37.1 ??C) Axillary 57 31 95 % 08/30/21 0300 115/66 -- -- 56 26 95 % 08/30/21 0200 110/63 99.5 ??F (37.5 ??C) Axillary 56 27 94 % 08/30/21 0100 109/56 -- -- 58 24 96 % 08/30/21 0000 100/61 99.4 ??F (37.4 ??C) Axillary 66 20 95 % 08/29/21 2347 -- -- -- 66 -- 95 % 08/29/21 2300 103/54 -- -- 67 24 94 % 08/29/21 2200 111/62 98.7 ??F (37.1 ??C) Axillary 60 25 94 % 08/29/21 2100 105/57 -- -- 61 22 96 % 08/29/212022 -- -- -- 65 -- 95 % 08/29/21 2000 107/55 99.5 ??F (37.5 ??C) Axillary 64 17 96 % 08/29/21 1900 96/48 -- -- 65 21 95 % 08/29/21 1800 99/54 99.1 ??F (37.3 ??C) Axillary 65 14 97 % 08/29/21 1700 98/51 -- -- 63 20 96 % 08/29/21 1600 98/51 98.7 ??F (37.1 ??C) Axillary 63 23 96 % 08/29/21 1500 110/58 -- -- 70 12 95 % 08/29/21 1400 101/49 98.8 ??F (37.1 ??C) Axillary 64 22 97 % 08/29/21 1300 97/50 -- -- 62 25 96 % Physical Examination: General: Awake. Head: Normocephalic, atraumatic. Eyes: Vision grossly intact. Sclera white, conjunctiva nonerythematous. Ears: Hearing grossly intact. Nose: No visible nasal drainage. Heart: Regular rate. Lungs: Unlabored breathing. Abdomen: Nondistended. Extremities: Moving all 4 limbs spontaneously. Skin: No abnormalities on exposed skin. Neuro: Alert, oriented to person, place, time. No gross neurological deficits. Mental Status Exam: MSE not able to gather due to patient being sedated. Appearance: somnolent Eye Contact: Poor Attitude toward examiner: patient unaware of my presence Speech: clear, slow tone Language: Short Phrases help me God Psychomotor: trying to move to the left side of the bed Mood: - Affect: Other: agitated Thought Process: - Thought Content: - Perception: - Fund of Knowledge: - Insight: poor Judgement: poor Cognitive Functions: Orientation: patient sedates Attention/Concentration: Somnolent, Memory: - Gait and Station: Unable to assess gait and station MSK: Normal Muscle Tone Labs: EKG: Results for orders placed or performed during the hospital encounter of 08/24/21 EKG 12-LEAD Result Value Ref Range Ventricular Rate 84 BPM Atrial Rate 84 BPM P-R Interval 102 ms QRS Duration ms 84 ms Q-T Interval ms 418 ms QTC Calculation (Bezet) 493 ms Calculated P [place] -4 degrees Calculated R [place] 126 degrees Calculated T [place] 127 degrees Interpretation EKG SUSPECT LIMB LEAD REVERSAL SINUS RHYTHM WITH SHORT OH MINIMAL VOLTAGE CRITERIA FOR LVH, MAY BE NORMAL VARIANT ( Sokolow-Calderon ) PROLONGED QT ABNORMAL ECG WHEN COMPARED WITH ECG OF 15-OCT-2018 08:33, SUSPECT LIMB LEADS ARE NOW REVERSED Confirmed by Rod Friemdan ([id number]) on 08/27/2021 5:28:48 PM EKG 12-LEAD Result Value Ref Range Ventricular Rate 72 BPM Atrial Rate 72 BPM P-R Interval 150 ms QRS Duration ms 84 ms Q-T Interval ms 376 ms QTC Calculation (Bezet) 411 ms Calculated P [place] 49 degrees Calculated R [place] 57 degrees Calculated T [place] 49 degrees Interpretation EKG NORMAL SINUS RHYTHM NORMAL ECG WHEN COMPARED WITH ECG OF 24-AUG-2021 19:59, LIMB LEAD REVERSAL NO LONGER SEEN Confirmed by MD Mima, Bonnie ([id number]) on 08/28/2021 4:01:54 PM EKG 12-LEAD Result Value Ref Range Ventricular Rate 65 BPM Atrial Rate 65 BPM P-R Interval 148 ms QRS Duration ms 82 ms Q-T Interval ms 400 ms QTC Calculation (Bezet) 416 ms Calculated P [place] 56 degrees Calculated R [place] 68 degrees Calculated T [place] 66 degrees Interpretation EKG NORMAL SINUS RHYTHM NORMAL ECG WHEN COMPARED WITH ECG OF 27-AUG-2021 13:24, NO SIGNIFICANT CHANGE WAS FOUND TFT: No results for input(s): TSH, T3, T3FREE, T4, T4FREE in the last 66998 hours. A1c: Recent Labs Component Name 08/26/21 0032 HGBA1C 5.1 EAG 100 Lipid: No results for input(s): CHOL, TRIG, HDL, LDLCALC in the last 03658 hours. Other: BAL: Recent Labs Component Name 08/25/21 1209 ETOH <10 ETHANOLCALC <0.010 Serum Acetaminophen: Recent Labs Component Name 08/24/21 193 ACETAMINO <3.0 Serum Salicylate: Recent Labs Component Name 08/24/211935 SALICYLATE <5* Urine Drug Screen: Recent Labs Component Name 08/24/21 1945 LABAMPH Positive* LABBARB Negative LABBENZ Positive* THCUR Negative COCAINESCRN Negative METHADONE Negative LABOPIA Negative FENTURSCN Negative PCPUR Negative Assessment: Chester Dubose Jr. is a 51 year old with a past medical history of bipolar disorder. The patient was transferred from [facility] for neurology consult. Per note, he presented to OS after consuming an entire bottle of crystal med. At the moment the assessment psych assessment was not able to be complete due to the patient being sedated. Will consult the attending physician, Dr. Garcia , regarding his agitation. Lethality: Short term risk of suicide- low Risk factors: previous attempt Protective factors: support from both his mother and his sister, Benson. Short term risk of harm to others- low Risk factors: expressed to wanting to hurt others Protective factors: not being physically able to carry out the action. Overall Risk low I have seen and reviewed the available and relevant vital signs, labs, imaging, procedures, EKGs, allergies, and medications. DSM-5 Diagnosis: 1. Bipolar 2. 3. F11.121 (Opioid abuse with intoxication delirium) F11.10 (Opioid Use Disorder, Mild) Plan: Psychiatric problems: 1.Bipolar 2. Suicidal attempt -No recommendation at the moment will have to address agitation, will discuss with attending physician, Dr. Garcia. Medical problems: Defer to neurology team: 1. Stroke Psychosocial needs: SW to kindly assist with discharge planning. Strengths/Limitations: Patient's Strengths and Assets: Family/ Community support Patient's Limitations and Liabilities: Cognitive impairment Psychiatric Disposition Plans: -not able to assess the patient due to neurological circumstances. -no current recommendations at this time -C&L psych will continue to follow him Precautions: Precaution Orders Procedures ??? FALL PRECAUTIONS ??? SEIZURE PRECAUTIONS ??? ASPIRATION PRECAUTIONS This patient was discussed with the attending physician, Dr. Garcia, who agrees with the above impression and plan. RADHA Casillas-Marly * Gabriele Riley MD - 08/25/2021 6:19 AM CST Vascular Neurology Service I saw and examined the patient with the resident. I have verified all details of the residents' note and agree with the residents documentation with additions and modifications as listed in my separate note. Please refer to the resident's note for plans of active problems not discussed in this note. 51yo M w/ PMH bipolar transferred to [facility] for further management of left parietal IPH (ICH Score 2). OSH reports suicide attempt with overdose of crystal meth prior to presentation. Pt developed GTC and head CT revealed IPH. Pt given mannitol and started on nicardipine gtt at OSH. CTA unremarkable.Suspect hemorrhagic mechanism is related to overdose of methamphetamine. Repeat head CT with stableappearance of IPH. #Seizure - provoked due to IPH. On levetiracetam. EEG without ongoing epileptiform activity. Routine multidisciplinary rounds were completed today with the presence of the primary team staff, residents, PT/OT/MANAGER MARKETING and CM/SW. Length of stay: 1 Disposition: TBD Date Estimated to be Medically Ready for Discharge: 09/01/2021 Problem List: Present on Admission: ??? Bipolar 1 disorder ??? Methamphetamine intoxication ??? Intracerebral bleed ??? [place] coma scale total score 4 or 5 ??? Seizures ??? Endotracheally intubated MEDICATIONS FOR CURRENT ENCOUNTER: SCHEDULED MEDICATIONS: 0.9% NaCl injection 3 mL, Intracatheter, q8h artificial tears ophthalmic ointment, Each Eye, q8h chlorhexidine (Peridex) 0.12 % oral solution 15 mL, Mouth/Throat, BID iopamidol (Isovue 370) 76 % contrast, Intravenous, Contrast - Once levETIRAcetam (Keppra) tablet 500 mg, Enteral Tube, BID pantoprazole (Protonix) injection 40 mg, Intravenous, QDAY ?? [COMPLETED] levETIRAcetam (Keppra) 2,750 mg in 0.9% NaCl IV 277.5 mL IVPB, Intravenous, Once CONTINUOUS MEDICATIONS: niCARdipine (Cardene) 25 mg in 0.9% NaCl IV 250 mL infusion, Intravenous, Continuous ?? propofol (Diprivan) infusion, Intravenous, Continuous PRN MEDICATIONS: 0.9% NaCl injection 1-10 mL, Intracatheter, PRN ?? fentaNYL (PF) (Sublimaze) injection 50 mcg, Intravenous, q1h PRN Patient Vitals for the past 24 hrs: Temp Pulse Resp BP 08/25/21 1000 97.8 ??F (36.6 ??C) 82 18 112/68 08/25/21 0900 -- 84 18 114/67 08/25/21 0800 97.8 ??F (36.6 ??C) 87 18 112/69 08/25/21 0700 -- 85 18 116/69 08/25/21 0645 -- 85 14 117/70 08/25/21 0630 -- 86 18 115/69 08/25/21 0615 -- 84 (!) 7 112/70 08/25/21 0600 -- 84 18 114/71 08/25/21 0545 -- 83 18 112/71 08/25/21 0530 -- 84 18 114/69 08/25/21 0515 -- 82 14 113/69 08/25/21 0500 -- 84 18 110/70 08/25/21 0445 -- 85 12 117/71 08/25/21 0430 -- 86 (!) 2 118/72 08/25/21 0415 -- 93 (!) 5 121/75 08/25/21 0409 -- 92 -- -- 08/25/21 0400 99 ??F (37.2 ??C) 87 12 115/73 08/25/21 0345 -- 82 18 114/70 08/25/21 0330 -- 82 18 111/66 08/25/21 0315 -- 80 12 -- 08/25/21 0300 -- 81 10 107/67 08/25/21 0245 -- 80 18 105/64 08/25/21 0230 -- 77 18 106/62 08/25/21 0200 -- 89 15 113/72 08/25/21 0145 -- 83 (!) 0 109/68 08/25/21 0130 -- 80 (!) 0 110/68 08/25/21 0115 -- 81 (!) 0 111/65 08/25/21 0100 -- 79 (!) 0 111/65 08/25/21 0045 -- 80 (!) 0 108/67 08/25/21 0030 -- 78 18 112/66 08/25/21 0015 -- 78 9 112/67 08/25/21 0000 98.8 ??F (37.1 ??C) 75 (!) 3 113/69 08/24/21 2345 -- 76 12 114/66 08/24/21 2332 -- 74 -- -- 08/24/21 2330 -- 73 12 118/68 08/24/21 2328 -- 79 -- -- 08/24/21 2315 -- 72 18 117/68 08/24/21 2300 -- 72 (!) 0 116/67 08/24/21 2245 -- 72 18 118/66 08/24/21 2230 -- 73 18 119/69 08/24/21 2215 -- 75 18 118/67 08/24/21 2200 -- 75 18 117/67 08/24/21 2145 -- 75 18 -- 08/24/210 -- 76 19 -- 08/24/212114 -- 80 18 -- 08/24/21 2100 98.5 ??F (36.9 ??C) 83 18 -- 08/24/212029 -- 81 13 117/67 08/24/212024 -- 81 16 116/67 08/24/212019 -- 81 -- 117/65 08/24/212014 -- 81 16 115/67 08/24/212009 -- 83 -- 116/63 08/24/212004 -- 83 -- 115/64 08/24/211999 -- 83 13 115/63 08/24/211954 -- 84 16 114/62 08/24/211949 -- 84 -- 108/65 08/24/211944 -- 85 -- 115/61 08/24/211939 -- 86 -- 116/63 08/24/211936 97.6 ??F (36.4 ??C) -- -- -- 08/24/211934 -- 92 -- 113/61 08/24/211929 -- 87 16 -- 08/24/211928 -- -- -- 119/62 08/24/211914 -- 86 16 118/60 08/24/211899 -- 89 -- 114/62 08/24/211849 -- 98 -- -- Intake/Output Summary (Last 24 hours) at 08/25/2021 1149 Last data filed at 08/25/2021 0618 Gross per 24 hour Intake 265.24 ml Output 1650 ml Net -1384.76 ml Labs: No results for input(s): CHOL, TRIG, HDL, VLDL, LDL, LDLCALC, LDLDIRECT, CHOLHDL in the last 88278 hours. No results for input(s): HGBA1C in the last 70205 hours. Recent Labs Component Name 08/25/21 0420 08/24/21 1936 10/21/18 0359 10/18/18 0542 10/17/18 0400 10/16/18 0654 10/16/18 0654 10/15/18 0454 10/15/18 0454 10/14/18 0404 10/14/18 0404 NA 137 134* - - 138 - 135* - 138 - 140 POTASSIUM 3.8 3.9 3.9 3.8 3.6 - 3.9 - 3.7 - 3.1* CL 106 104 - - 106 - 105 - 109* - 108* CO2 20* 22 24 26 22 - 24 - 17* - 20* BUN 11 10 6* 7* 5* - 3* - 4* - 4* CREATININE 0.62* 0.66* 0.58* 0.53* 0.6 - 0.5* - 0.6 - 0.6 CALCIUM 9.1 8.0* 8.8 8.7 8.1* - 8.0* - 8.3* - 8.3* MAGNESIUM - - - - 1.6 - 1.5* - 1.5* - 1.4* PHOS - - - - 2.8 - 2.4 - 3.0 - 3.1 - = values in this interval not displayed. Recent Labs Component Name 08/25/21 0420 08/24/21193510/21/18 0359 10/18/18 0542 WBC 3.7 4.5 6.0 5.9 HGB 15.8 12.9 11.2* 10.0* HCT 43.7 36.1 36.1 32.8* PLTCOUNT 88* 81* 340 295 RBC 5.01 4.08* 4.00 3.60* Recent Labs Component Name 08/25/21 0420 08/24/21193510/02/18 1610 PT 18.3* 19.4* 15.9* INR 1.5 1.7 1.3 PTT - - 36.9 Recent Labs Component Name 08/24/21 2202 08/24/21193510/12/18 1327 10/08/18 0926 10/08/18 0926 10/07/18 0900 10/07/18 0900 PH 7.50* 7.40 7.52* - 7.48* - 7.48* PCO2 27* 36 32* - 34* - 37 PO2 193* 173* 75* - 106* - 118* HCO3 - - 25.6 - 24.9 - 26.6* FIO2 40.0 40.0 21.0 - 40.0 - 40.0 - = values in this interval not displayed. No data found. Micro: Microbiology Results (Displays last 21 days for this encounter ONLY) No results found for the last 504 hours. Gabriele Riley MD Vascular Neurology NO HOST * Froilan Vela - 08/24/2021 7:10 PM CST [facility] Stroke History and Physical Chester Dubose Jr. Age: [age] year old Date of : 1970 Date of Admission: 08/24/2021 Hospital Day: 0 History of Present Illness Date last known well: 08/24/21 Time last known well: - Blood Glucose: - Blood Pressure: 126/78 Timeline EMS called tPA started at OSH Code Stroke Paged 18:22 Arrival at [facility] ED 18:51 NIHSS Completed 18:55 First Imaging Slice 19:14 TNK orders placed TNK begun The patient is a 51 year old male with a medical history of bipolar disorder who presented to hospital as an OSH transfer with intracerebral hemorrhage. As per report he has been depressed for a while and attempted suicide today. He had ingested a bottles worth of crystal meth (approximately 1g worth) and presented to an OSH stating he wanted to kill himself. He was mildly altered at the time butthen quickly deteriorated. His BP was noted to have been in the 180s-200s systolic. He was then witnessed to have a generalized tonic clonic seizure lasting an unknown amount of time. He was given a total of 10mg of ativan and 1000mg of Keppra. CTH completed at the OSH showed an intracerebral bleed. He was given mannitol, intubated and sedated on propofol and versed. Blood pressure remained elevated and he was started on a nicardipine drip. Upon arrival to [facility] he was minimally responsive but extending his extremities to noxious stimuli. Repeat CTH showed a 3.8 x 3.25cm bleed with a volume ofaround 22ml. CTA head and neck did not show any active bleeding. NSGY were consulted and did not opt for intervention. He was loaded with a further 3 grams of Keppra and was planned for ICU admission. Past Medical History: Diagnosis Date ??? Anxiety ??? Bipolar 1 disorder 10/07/2018 ??? Cirrhosis ??? COPD (chronic obstructive pulmonary disease) ??? Delirium tremens ??? Depression ??? Depression ??? Substance abuse ??? Suicide attempt Past Surgical History: Procedure Laterality Date ??? Wrist Fracture Repair Left 10/15/2018 Left; OPEN REDUCTION INTERNAL FIXATION (ORIF) WRIST/DISTAL RADIUS (Not in a hospital admission) Allergy No Known Allergies Family History No family history on file. Social History Social History Socioeconomic History ??? Marital status: Single Spouse name: Not on file ??? Number of children: Not on file ??? Years of education: Not on file ??? Highest education level: Not on file Occupational History ??? Not on file Tobacco Use ??? Smoking status: Former Smoker Packs/day: 1.00 Types: Cigarettes ??? Smokeless tobacco: Never Used Substance and Sexual Activity ??? Alcohol use: Yes Comment: used EtOH today ??? Drug use: Yes Types: Marijuana, Cocaine ??? Sexual activity: Not on file Other Topics Concern ??? Not on file Social History Narrative ??? Not on file Review of Systems - Unable to acquire Objective Patient Vitals for the past 8 hrs: BP Temp Temp src Pulse Resp SpO2 Weight 08/24/21 193 -- 97.6 ??F (36.4 ??C) Temporal -- -- -- -- 08/24/21 1915 118/60 -- -- 86 16 100 % -- 08/24/21 1900 114/62 -- -- 89 -- 100 % -- 08/24/211858 -- -- -- -- -- -- 158 lb 9.6 oz 08/24/211849 -- -- -- 98 -- 100 % -- Exam: Sedated, Intubated Eyes closed - not opening to voice or noxious stimuli Corneal, Cough, Gag present Pupils 4mm and bilaterally reactive Extending all extremities to noxious stimuli Ischemic Stroke Documentation Comorbidities Bipolar Disorder Cardiovascular/Cerebrovascular Comorbidities N/A NIHSS Stroke Scale: Interval: Baseline Time: 18:55 Person Administering Scale: Froilan Vela 1a Level of consciousness 3 = Responds only with reflex motor or autonomic effects, or totally unresponsive, flaccid, and areflexic. 1b LOC questions 0 = Answers both questions correctly. 1c LOC commands 0 = Performs both tasks correctly. 2 Best gaze 0 = Normal. 3 Visual 0 = No visual loss. 4 Facial Palsy 0 = Symmetrical movements. 5a Motor Left Arm 3 = No effort against gravity; limb falls. 5b Motor Right Arm 3 = No effort against gravity; limb falls. 6a Motor Left Leg 3 = No effort against gravity; leg falls to bed immediately. 6b Motor Right Leg 3 = No effort against gravity; leg falls to bed immediately. 7 Limb Ataxia 0 = Absent. 8 Sensory 2 = Coma. 9 Best Language 3 = Coma. 10 Dysarthria 0 = Normal. 11 Extinction/Inattention 0 = No abnormality. Total - 20 ICH Score Volume of hemorrhage > 30 mL If yes + 1 Patient Age > 80 If yes + 1 Intraventricular extension If yes + 1 Infratentorial origin of hemorrhage If yes + 1 GCS If 3-4 +2 If 5-12 + 1 If 12-15 + 0 Total score: 2 Bipolar 1 disorder POA: Yes Methamphetamine intoxication POA: Yes Intracerebral bleed POA: Yes [place] coma scale total score 4 or 5 POA: Yes Seizures POA: Yes Endotracheally intubated POA: Yes Intentional drug overdose POA: Unknown Assessment The patient is a 51 year old male with a medical history of bipolar disorder who presented to hospital as an OSH transfer with intracerebral hemorrhage. As per report he has been depressed for a while and attempted suicide today by ingesting 1g of crystal meth. Was altered at the OSH then unresponsive with a subsequent seizure. CTH showed an intracerebral bleed. CTA H and N without spot sign. NSGY consulted without any intervention. Stroke Type: Hemorrhagic Stroke Mechanism: Drug Induced and secondary HTN Plan Neurological #Intracerebral Hemorrhage; active - Neurology critical care will be primary - ICH score - q1h vitals and neurological checks - Stat CT head for any change in neurological examination - Repeat CTH in 6 hours - NSGY consulted - No acute need for intervention - Head of bed > 30?? - Normonatremia goal - Received mannitol bolus at OSH - Avoid hypoglycemia, hyponatremia, and hyperthermia #Seizure - Given 1g of Keppra at OSH - Given 10mg total of Ativan at OSH - Loaded with 40mg/kg of Keppra on arrival - 3g total - Start 500mg Keppra BID tomorrow - Continuous EEG Sedation: Propofol drip, Fentanyl 50mg Q1H PRN Cardiovascular #Hypertension - Likely 2/2 drug igestion - B/P at OSH in the 180s-200s - Continue nicardipine drip - 12-lead EKG - Cardiac markers x 3 - Blood pressure goal: SBP 120-140, DBP < 90 - PRN hydralazine IV and labetalol IV for SBP 120-140, DBP > 90 - Hemodynamic monitoring - Maintain MAP ~ 65 Respiratory #Intubated - For airway protection - Volume control 18/450/8/40% - Aspiration precautions - CXR pending - Elevate head of bed - Maintain oxygen saturation > 92% - Monitor for respiratory distress Gastrointestinal - NPO - NG tube in place - Pantoprazole for GI prophylaxis - [employer] swallow evaluation Renal/Electrolytes No acute issues - Monitor intake and output - Replete electrolytes as needed Hematology #Thrombocytopenia - Platelets 81 - Will continue to monitor - Daily CBC - Transfuse for hemoglobin < 7.0 g/dL - SCDs for DVT prophylaxis - Holding anticoagulation Endocrine No acute issues Infectious Disease No acute issues - Monitor for fevers - Clay culture if febrile Musculoskeletal No acute issues Disposition - PT/OT pending Froilan Vela PGY-3 Neurology Resident NO HOST documented in this encounter Procedure Notes * Herbert Jacobs DO - 08/29/2021 8:[address] [facility] EEG REPORT Patient Name: Chester Dubose Jr. EEG#: [id number] Recording Start Time: 22:01 PM 08/24/2021 Epoch Start Time: 05:00 AM 08/28/2021 Epoch Stop Time: 09:11 AM 08/29/2021 Clinical History: Chester Dubose Jr. is a 51 year old male with altered mental status. This continuous video EEG monitoring is ordered to evaluate for seizures in the setting of altered mental status. Current medications Current Facility-Administered Medications Medication ??? 0.9% NaCl injection 3 mL And ??? 0.9% NaCl injection 1-10 mL ??? acetaminophen (Tylenol) tablet 500 mg ??? artificial tears ophthalmic ointment ??? chlorhexidine (Peridex) 0.12 % oral solution 15 mL ??? dexmedeTOMIDine (Precedex) 400 mcg in 100 mL NS infusion premix ??? famotidine (Pepcid) tablet 20 mg ??? heparin injection 5,000 Units ??? hydrALAZINE (Apresoline) injection 10 mg ??? labetalol (Normodyne; Trandate) injection 10 mg ??? lactulose (Chronulac) solution 20 g ??? levETIRAcetam (Keppra) tablet 500 mg ??? propofol (Diprivan) infusion ??? QUEtiapine (SEROquel) tablet 100 mg ??? rifAXIMin (Xifaxan) tablet 550 mg ??? sodium - potassium phosphates (K Phos Neutral) tablet 2 tablet ??? tamsulosin (Flomax) capsule 0.4 mg Description This is a continuous video EEG monitoring is 21-channels; consisting of 20 channels of EEG obtainedfrom electrodes placed on the scalp according to the international 10-20 system, T1 and T2 electrodes, and one channel of EKG monitoring. Background: Epoch Start Time: 22:01 PM 08/24/2021 Epoch Stop Time: 01:59 AM 08/25/2021 The background was symmetric. No well-developed posterior dominant rhythm was identified. Anterior-posterior gradient was absent. The background was predominantly suppressed, and consisted of suppression amplitude pattern (<10 microvolt). Variability was absent. Reactivity was absent. Normal sleep architecture was not seen. There were frequent admixed bursts of alpha/beta frequencies and spindles, at times forming discontinuous pattern more visible during the latter part of the epoch. Epoch Start Time: 05:00 AM 08/25/2021 Epoch Stop Time: 05:00 AM 08/26/2021 The background initially consisted of suppression amplitude pattern with admixed bursts of alpha/beta frequencies and spindles, that gradually transitioned to generalized poorly organized theta activity of normal amplitude as the recording progressed. Variability was present. Reactivity was present. Normal sleep architecture was not identified. Focal slowing was observed over the left temporal region. Epileptiform discharges were rarely identified over the left frontal and frontocentral regions during the latter part of the epoch. Generalized discharges with triphasic morphology were identified. Epoch Start Time: 05:00 AM 08/26/2021 Epoch Stop Time: 05:00 AM 08/27/2021 The background consisted of generalized poorly organized theta activity of normal amplitude. Variability was present. Reactivity was present. Sleep architectures were identified in the forms of vertex waves and spindles. Focal slowing was observed over the left temporal region. Epileptiform discharges were very rarely identified over the left frontal region (F3). Generalized discharges with triphasic morphology were occasionally to frequently identified, and were occasionally periodic at 2 Hz. Epoch Start Time: 05:00 AM 08/27/2021 Epoch Stop Time: 05:00 AM 08/28/2021 The background consisted of generalized poorly organized theta activity of normal amplitude. Variability was present. Reactivity was present. Sleep architectures were identified in the forms of vertex waves and spindles. Focal slowing was observed over the left temporal region. Epileptiform discharges were very rarely identified over the left frontal region (F3). Generalized discharges with triphasic morphology were occasionally to frequently identified, and were occasionally periodic at 2 Hz. There were rhythmic delta activity of 3 Hz, but were associated with stimulit, and were within variability of stimulus induced rhythmic discharges (SIRPIDs). Epoch Start Time: 05:00 AM 08/28/2021 Epoch Stop Time: 09:11 AM 08/29/2021 The background consisted of generalized poorly organized theta activity of normal amplitude. Variability was present. Reactivity was present. Sleep architectures were identified in the forms of vertex waves and spindles. Focal slowing was observed over the left temporal region. Generalized discharges with triphasic morphology were occasionally to frequently identified, and were occasionally periodic at 2 Hz. There were rhythmic delta activity of 3 Hz, but were associated with stimulit, and were within variability of stimulus induced rhythmic discharges (SIRPIDs). EKG was observed throughout the recording. IMPRESSION This is an abnormal cEEG due to ) left frontal epileptiform discharges, 2) left temporal focal slowing, 3) generalized slowing and 4) triphasic waves. There were SIRPIDs during this segmeent. CLINICAL CORRELATION: Between 08/24/2021 to 08/25/2021, the study was suggestive of severe encephalopathy, with intervals ofsuppressed and discontinuous background. Between 08/25/2021 to 08/26/2021, there was background improvement, transitioning to moderate to severe encephalopathy. There were rare left frontal/fronto- central epileptiform discharges suggestive ofsome increased tendency toward seizure, and left temporal slowing suggestive of underlying structural or functional abnormalities. Triphasic waves were identified, which are non- specific findings commonly associated with metabolic abnormalities. Between 08/26/2021 to 08/27/2021, the study was suggestive of moderate to severe encephalopathy, withvery rare left frontal epileptiform discharges, occasional to frequent triphasic waves that were periodic at 2 Hz, and evidence of left temporal dysfunction. Between 08/27/2021 to 08/28/2021, the study was suggestive of moderate to severe encephalopathy, withvery rare left frontal epileptiform discharges, occasional to frequent triphasic waves. There were rhythmic 3 Hz frequencies which appeared to be associated with stimulation, without clinical association, and thus were consistent with comparatively benign reactive SIRPIDs pattern. Between 08/28/2021 to 08/29/2021, the study was suggestive of moderate to severe encephalopathy, withvery rare left frontal epileptiform discharges, occasional to frequent triphasic waves. There were rhythmic 3 Hz frequencies which appeared to be associated with stimulation, without clinical association, and thus were consistent with comparatively benign reactive SIRPIDs pattern. Herbert Jacobs DO * Nilson Germain MD - 08/28/2021 10:[address] [facility] EEG REPORT Patient Name: Chester Dubose Jr. EEG#: [id number] Recording Start Time: 22:01 PM 08/24/2021 Epoch Start Time: 05:00 AM 08/27/2021 Epoch Stop Time: 05:00 AM 08/28/2021 Clinical History: Chester Dubose Jr. is a 51 year old male with altered mental status. This continuous video EEG monitoring is ordered to evaluate for seizures in the setting of altered mental status. Current medications Current Facility-Administered Medications Medication ??? 0.9% NaCl injection 3 mL And ??? 0.9% NaCl injection 1-10 mL ??? acetaminophen (Tylenol) tablet 500 mg ??? artificial tears ophthalmic ointment ??? chlorhexidine (Peridex) 0.12 % oral solution 15 mL ??? dexmedeTOMIDine (Precedex) 400 mcg in 100 mL NS infusion premix ??? famotidine (Pepcid) tablet 20 mg ??? heparin injection 5,000 Units ??? hydrALAZINE (Apresoline) injection 10 mg ??? labetalol (Normodyne; Trandate) injection 10 mg ??? lactulose (Chronulac) solution 20 g ??? levETIRAcetam (Keppra) tablet 500 mg ??? propofol (Diprivan) infusion ??? QUEtiapine (SEROquel) tablet 50 mg ??? rifAXIMin (Xifaxan) tablet 550 mg ??? tamsulosin (Flomax) capsule 0.4 mg Description This is a continuous video EEG monitoring is 21-channels; consisting of 20 channels of EEG obtainedfrom electrodes placed on the scalp according to the international 10-20 system, T1 and T2 electrodes, and one channel of EKG monitoring. Background: Epoch Start Time: 22:01 PM 08/24/2021 Epoch Stop Time: 01:59 AM 08/25/2021 The background was symmetric. No well-developed posterior dominant rhythm was identified. Anterior-posterior gradient was absent. The background was predominantly suppressed, and consisted of suppression amplitude pattern (<10 microvolt). Variability was absent. Reactivity was absent. Normal sleep architecture was not seen. There were frequent admixed bursts of alpha/beta frequencies and spindles, at times forming discontinuous pattern more visible during the latter part of the epoch. Epoch Start Time: 05:00 AM 08/25/2021 Epoch Stop Time: 05:00 AM 08/26/2021 The background initially consisted of suppression amplitude pattern with admixed bursts of alpha/beta frequencies and spindles, that gradually transitioned to generalized poorly organized theta activity of normal amplitude as the recording progressed. Variability was present. Reactivity was present. Normal sleep architecture was not identified. Focal slowing was observed over the left temporal region. Epileptiform discharges were rarely identified over the left frontal and frontocentral regions during the latter part of the epoch. Generalized discharges with triphasic morphology were identified. Epoch Start Time: 05:00 AM 08/26/2021 Epoch Stop Time: 05:00 AM 08/27/2021 The background consisted of generalized poorly organized theta activity of normal amplitude. Variability was present. Reactivity was present. Sleep architectures were identified in the forms of vertex waves and spindles. Focal slowing was observed over the left temporal region. Epileptiform discharges were very rarely identified over the left frontal region (F3). Generalized discharges with triphasic morphology were occasionally to frequently identified, and were occasionally periodic at 2 Hz. Epoch Start Time: 05:00 AM 08/27/2021 Epoch Stop Time: 05:00 AM 08/28/2021 The background consisted of generalized poorly organized theta activity of normal amplitude. Variability was present. Reactivity was present. Sleep architectures were identified in the forms of vertex waves and spindles. Focal slowing was observed over the left temporal region. Epileptiform discharges were very rarely identified over the left frontal region (F3). Generalized discharges with triphasic morphology were occasionally to frequently identified, and were occasionally periodic at 2 Hz. There were rhythmic delta activity of 3 Hz, but were associated with stimulit, and were within variability of stimulus induced rhythmic discharges (SIRPIDs). EKG was observed throughout the recording. IMPRESSION This is an abnormal cEEG due to ) left frontal epileptiform discharges, 2) left temporal focal slowing, 3) generalized slowing and 4) triphasic waves. There were SIRPIDs during this segmeent. CLINICAL CORRELATION: Between 08/24/2021 to 08/25/2021, the study was suggestive of severe encephalopathy, with intervals ofsuppressed and discontinuous background. Between 08/25/2021 to 08/26/2021, there was background improvement, transitioning to moderate to severe encephalopathy. There were rare left frontal/fronto- central epileptiform discharges suggestive ofsome increased tendency toward seizure, and left temporal slowing suggestive of underlying structural or functional abnormalities. Triphasic waves were identified, which are non- specific findings commonly associated with metabolic abnormalities. Between 08/26/2021 to 08/27/2021, the study was suggestive of moderate to severe encephalopathy, withvery rare left frontal epileptiform discharges, occasional to frequent triphasic waves that were periodic at 2 Hz, and evidence of left temporal dysfunction. Between 08/27/2021 to 08/28/2021, the study was suggestive of moderate to severe encephalopathy, withvery rare left frontal epileptiform discharges, occasional to frequent triphasic waves. There were rhythmic 3 Hz frequencies which appeared to be associated with stimulation, without clinical association, and thus were consistent with comparatively benign reactive SIRPIDs pattern. Nilson Germain MD * Annia Zaidi - 08/28/2021 9:52 AM CDTProcedure(s): EEG VIDEO MONITORING Corrected impedances for C4, F4, P4, O2, A1, Fp2, and P3. All impedances are below 10 K ohms. No skin breakdown at A1. * Annia Zaidi - 08/27/2021 10:49 AM CSTProcedure(s): EEG VIDEO MONITORING All impedances are below 10 K ohms. No skin breakdown was seen at A1. NO HOST * Nilson Germain MD - 08/27/2021 9:[address] [facility] EEG REPORT Patient Name: Chester Dubose Jr. EEG#: [id number] Recording Start Time: 22:01 PM 08/24/2021 Epoch Start Time: 05:00 AM 08/26/2021 Epoch Stop Time: 05:00 AM 08/27/2021 Clinical History: Chester Dubose Jr. is a 51 year old male with altered mental status. This continuous video EEG monitoring is ordered to evaluate for seizures in the setting of altered mental status. Current medications Current Facility-Administered Medications Medication ??? 0.9% NaCl injection 3 mL And ??? 0.9% NaCl injection 1-10 mL ??? acetaminophen (Tylenol) tablet 500 mg ??? artificial tears ophthalmic ointment ??? chlorhexidine (Peridex) 0.12 % oral solution 15 mL ??? dexmedeTOMIDine (Precedex) 400 mcg in 100 mL NS infusion premix ??? famotidine (Pepcid) tablet 20 mg ??? fentaNYL (PF) (Sublimaze) injection 25 mcg ??? heparin injection 5,000 Units ??? hydrALAZINE (Apresoline) injection 10 mg ??? labetalol (Normodyne; Trandate) injection 10 mg ??? lactulose (Chronulac) solution 20 g ??? levETIRAcetam (Keppra) tablet 500 mg ??? propofol (Diprivan) infusion ??? rifAXIMin (Xifaxan) tablet 550 mg ??? tamsulosin (Flomax) capsule 0.4 mg Description This is a continuous video EEG monitoring is 21-channels; consisting of 20 channels of EEG obtainedfrom electrodes placed on the scalp according to the international 10-20 system, T1 and T2 electrodes, and one channel of EKG monitoring. Background: Epoch Start Time: 22:01 PM 08/24/2021 Epoch Stop Time: 01:59 AM 08/25/2021 The background was symmetric. No well-developed posterior dominant rhythm was identified. Anterior-posterior gradient was absent. The background was predominantly suppressed, and consisted of suppression amplitude pattern (<10 microvolt). Variability was absent. Reactivity was absent. Normal sleep architecture was not seen. There were frequent admixed bursts of alpha/beta frequencies and spindles, at times forming discontinuous pattern more visible during the latter part of the epoch. Epoch Start Time: 05:00 AM 08/25/2021 Epoch Stop Time: 05:00 AM 08/26/2021 The background initially consisted of suppression amplitude pattern with admixed bursts of alpha/beta frequencies and spindles, that gradually transitioned to generalized poorly organized theta activity of normal amplitude as the recording progressed. Variability was present. Reactivity was present. Normal sleep architecture was not identified. Focal slowing was observed over the left temporal region. Epileptiform discharges were rarely identified over the left frontal and frontocentral regions during the latter part of the epoch. Generalized discharges with triphasic morphology were identified. Epoch Start Time: 05:00 AM 08/26/2021 Epoch Stop Time: 05:00 AM 08/27/2021 The background consisted of generalized poorly organized theta activity of normal amplitude. Variability was present. Reactivity was present. Sleep architectures were identified in the forms of vertex waves and spindles. Focal slowing was observed over the left temporal region. Epileptiform discharges were very rarely identified over the left frontal region (F3). Generalized discharges with triphasic morphology were occasionally to frequently identified, and were occasionally periodic at 2 Hz. EKG was observed throughout the recording. IMPRESSION This is an abnormal cEEG due to ) left frontal epileptiform discharges, 2) left temporal focal slowing, 3) generalized slowing and 4) triphasic waves. CLINICAL CORRELATION: Between 08/24/2021 to 08/25/2021, the study was suggestive of severe encephalopathy, with intervals ofsuppressed and discontinuous background. Between 08/25/2021 to 08/26/2021, there was background improvement, transitioning to moderate to severe encephalopathy. There were rare left frontal/fronto- central epileptiform discharges suggestive ofsome increased tendency toward seizure, and left temporal slowing suggestive of underlying structural or functional abnormalities. Triphasic waves were identified, which are non- specific findings commonly associated with metabolic abnormalities. Between 08/26/2021 to 08/27/2021, the study was suggestive of moderate to severe encephalopathy, withvery rare left frontal epileptiform discharges, occasional to frequent triphasic waves that were periodic at 2 Hz, and evidence of left temporal dysfunction. Nilson Germain MD * Nilson Germain MD - 08/26/2021 9:[address] [facility] EEG REPORT Patient Name: Chester Dubose Jr. EEG#: [id number] Recording Start Time: 22:01 PM 08/24/2021 Epoch Start Time: 05:00 AM 08/25/2021 Epoch Stop Time: 05:00 AM 08/26/2021 Clinical History: Chester Dubose Jr. is a 51 year old male with altered mental status. This continuous video EEG monitoring is ordered to evaluate for seizures in the setting of altered mental status. Current medications Current Facility-Administered Medications Medication ??? 0.9% NaCl injection 3 mL And ??? 0.9% NaCl injection 1-10 mL ??? artificial tears ophthalmic ointment ??? chlorhexidine (Peridex) 0.12 % oral solution 15 mL ??? fentaNYL (PF) (Sublimaze) injection 25 mcg ??? lactulose (Chronulac) solution 20 g ??? levETIRAcetam (Keppra) tablet 500 mg ??? pantoprazole (Protonix) injection 40 mg ??? propofol (Diprivan) infusion Description This is a continuous video EEG monitoring is 21-channels; consisting of 20 channels of EEG obtainedfrom electrodes placed on the scalp according to the international 10-20 system, T1 and T2 electrodes, and one channel of EKG monitoring. Background: Epoch Start Time: 22:01 PM 08/24/2021 Epoch Stop Time: 01:59 AM 08/25/2021 The background was symmetric. No well-developed posterior dominant rhythm was identified. Anterior-posterior gradient was absent. The background was predominantly suppressed, and consisted of suppression amplitude pattern (<10 microvolt). Variability was absent. Reactivity was absent. Normal sleep architecture was not seen. There were frequent admixed bursts of alpha/beta frequencies and spindles, at times forming discontinuous pattern more visible during the latter part of the epoch. Epoch Start Time: 05:00 AM 08/25/2021 Epoch Stop Time: 05:00 AM 08/26/2021 The background initially consisted of suppression amplitude pattern with admixed bursts of alpha/beta frequencies and spindles, that gradually transitioned to generalized poorly organized theta activity of normal amplitude as the recording progressed. Variability was present. Reactivity was present. Normal sleep architecture was not identified. Focal slowing was observed over the left temporal region. Epileptiform discharges were rarely identified over the left frontal and frontocentral regions during the latter part of the epoch. Generalized discharges with triphasic morphology were identified. EKG was observed throughout the recording. IMPRESSION This is an abnormal cEEG due to 1) left frontal/frontocentral epileptiform discharges, 2) left temporal focal slowing, 3) generalized slowing and 4) triphasic waves. CLINICAL CORRELATION: Between 08/24/2021 to 08/25/2021, the study was suggestive of severe encephalopathy, with intervals ofsuppressed and discontinuous background. Between 08/25/2021 to 08/26/2021, there was background improvement, transitioning to moderate to severe encephalopathy. There were rare left frontal/fronto- central epileptiform discharges suggestive ofsome increased tendency toward seizure, and left temporal slowing suggestive of underlying structural or functional abnormalities. Triphasic waves were identified, which are non- specific findings commonly associated with metabolic abnormalities. Nilson Germain MD * Kelsey Mills - 08/26/2021 9:10 AM CST Pt impedances checked; all <10 kohms. Vitals noted and neuro check performed. No skin breakdown under Fp1. NO HOST * Chevy Mcwilliams - 08/25/2021 10:01 AM CSTProcedure(s): EEG VIDEO MONITORING Corrected 1 electrode impedance. All electrode impedances are below 10k Ohms. Vitals were noted on the EEG. NO HOST * Nilson Germain MD - 08/25/2021 9:[address] [facility] EEG REPORT Patient Name: Chester Dubose Jr. EEG#: [id number] Recording Start Time: 22:01 PM 08/24/2021 Epoch Start Time: 22:01 PM 08/24/2021 Epoch Stop Time: 01:59 AM 08/25/2021 Clinical History: Chester Dubose Jr. is a 51 year old male with altered mental status. This continuous video EEG monitoring is ordered to evaluate for seizures in the setting of altered mental status. Current medications Current Facility-Administered Medications Medication ??? 0.9% NaCl injection 3 mL And ??? 0.9% NaCl injection 1-10 mL ??? artificial tears ophthalmic ointment ??? chlorhexidine (Peridex) 0.12 % oral solution 15 mL ??? fentaNYL (PF) (Sublimaze) injection 50 mcg ??? iopamidol (Isovue 370) 76 % contrast ??? levETIRAcetam (Keppra) tablet 500 mg ??? niCARdipine (Cardene) 25 mg in 0.9% NaCl IV 250 mL infusion ??? pantoprazole (Protonix) injection 40 mg ??? propofol (Diprivan) infusion Description This is a continuous video EEG monitoring is 21-channels; consisting of 20 channels of EEG obtainedfrom electrodes placed on the scalp according to the international 10-20 system, T1 and T2 electrodes, and one channel of EKG monitoring. Background: Epoch Start Time: 22:01 PM 08/24/2021 Epoch Stop Time: 01:59 AM 08/25/2021 The background was symmetric. No well-developed posterior dominant rhythm was identified. Anterior-posterior gradient was absent. The background was predominantly suppressed, and consisted of suppression amplitude pattern (<10 microvolt). Variability was absent. Reactivity was absent. Normal sleep architecture was not seen. There were frequent admixed bursts of alpha/beta frequencies and spindles, at times forming a d discontinuous pattern more visible during the latter part of the epoch. EKG was observed throughout the recording. IMPRESSION This is an abnormal cEEG due to generalized slowing. CLINICAL CORRELATION: Between 08/24/2021 to 08/25/2021, the study was suggestive of severe encephalopathy, with intervals ofsuppressed and discontinuous background. Nilson Germain MD NO HOST documented in this encounter Consult Notes * Arnie Chand - 08/31/2021 11:23 AM CDTAssociated Order(s): IP CONSULT TO BEREAVEMENT COORDINATOR New Facility Placement Date of referral: 08/31/2021 Admitted from: [facility], [facility] Special Needs: Yes, psychiatric, substance treatment Patient Goal (short term and half-way): Short Term Level of Care (SNF/Medicaid NH/Rehab/Fdc Care/LTACH): SNF List of facilities provided (within patient geographic preference): Yes Referrals initiated: Continued Care and Services - Admitted Since 08/24/2021 Destination Service Provider Request Status Selected Services Address Phone Fax Patient Preferred [facility] Pending - Request Sent N/A [address] [facility] [facility] [address] -- Current Capacity last updated by Katia Gonzalez on 02/01/2021 1242 BEDS AVAILABLE!! Let me know if you need anything :Katia Lamb [phone] [facility] Pending - Request Sent N/A [address] [facility] [address] -- DAT GUERRERO Pending - Request Sent N/A [address] [facility] [phone] -- [facility] Pending - Request Sent N/A [address] [phone] -- [facility] Pending - Request Sent N/A [address] [facility] [address] [phone] -- Isaac De Oliveira (formerly [facility]) Pending - Request Sent N/A [address] [facility] [address] -- Current Capacity last updated by Marissa Rivera on 08/31/2021 1001 We currently have (2) Short-Stay Rehabilitation Beds Available. , , We will accept 10-day Post-COVID. , UHC, Essence, AETNA, Medicare and Active-Medicaid. , , Please call Marissa with any questions or for additional information. [facility] Pending - Request Sent N/A [address] [facility] [phone] -- [facility] Pending - Request Sent N/A [address] [facility] [phone] -- [facility] Pending - Request Sent N/A [address] [facility] [address] -- [facility] Pending - Request Sent N/A [address] [facility] [address] [phone] -- [facility] Pending - Request Sent N/A [address] [place] [phone] -- [facility] Pending - Request Sent N/A [address] [place] [address] -- [facility] Pending - Request Sent N/A [address] [facility] [address] [phone] -- [facility] Pending - Request Sent N/A [address] [facility] [address] [phone] -- [facility] Pending - Request Sent N/A [address] [facility] [address] [phone] -- [facility] Pending - Request Sent N/A [address] [facility] [phone] -- [facility] Pending - Request Sent N/A [address] [facility] [phone] -- [facility] Pending - Request Sent N/A [address] [facility] [address] [phone] -- [facility] Pending - Request Sent N/A [address] [facility] [address] [phone] -- [facility] Declined History of violence and/or drug/alcohol abuse N/A [address] [facility] [phone] -- Current Capacity last updated by Ching Reyna on 05/13/2021 1316 Cedric Hurtado has several semi or private rooms available for female or male residents. We have just opened our short term wing again, they are all private rooms. We take Medicare, Medicaid, Medicaid pending, Aetna, and [facility]. [facility] Declined Facility cannot provide for patient's needs N/A [address] [facility] [address] -- [facility] Declined No contract with patient's insurance carrier N/A [address] [facility] [address] -- If Medicare-3 day qualifying stay verified: Yes monitoring facility responses Comments: Consult acknowledged. SANTINO assigned and following. In addition to referrals submitted by [facility]. SANTINO submitted additional referrals near/about Pt's home address. PIPER Dumont MBA Anodizing Line Operator [phone] 08/31/2021 11:25 AM * Fannie Blakely RN - 08/30/2021 3:14 PM CDTAssociated Order(s): IP CONSULT TO FLOORING GRADER I have been consulted due to the possibility or diagnosis of stroke, chart reviewed. Patient Name: Chester Dubose JrDenis Arrival: Start: Start (08/24/211835) Last Known Well: 08/24/2021 - Unknown Time EMS Activated Code Stroke: Yes Arrival Mode: Transfer from Outside Facility Arrival Service(document name here): Air Evac Blood drawn DIE CUTTER APPRENTICE: YES IV Placed: Yes Initial Blood Pressure: BP: 114/62 (08/24/21 1900) Current Blood Pressure: BP: 144/87 (08/30/21 1600) Initial NIHSS Score: NIH Total: 20 (08/24/211835) Last Documented NIHSS Score: NIH Total: 15 (08/29/211999) Stroke Severity Score Upon Arrival: ICH Score: 2 Nursing Swallow Screen: Total Score of questionnaire (6 or greater did not advance to the water test): Total Row: 30 (08/24/211835) VTE Prophylaxis by day 2: Received VTE Prophylaxis: Sequential Compression Device Evaluated by Therapy: Pending Discharge Recommendation: Patient not medically stable for evaluation at this time. Written Stroke Education: Provided Education Personalized: Received Depression Screen Score = Does not meet criteria for screening: Intubation PHQ-2 PHQ-9 Nursing pending course of action: 1) Complete stroke/TIA education daily. 2) Individualize stroke care plan, document daily. 3) Complete neuro checks and document as ordered by MD. 4) Complete NIHSS per MD orders. (If patient has an NIHSS deviation of 4 or greater from baseline, or per nursing judgement, please call Neurologist and repeat swallow screen evaluation.) 5) Complete depression screener for patient's diagnosed with stroke/TIA on day 2 or prior to discharge to evaluate the patient's potential for developing depression. Imaging: CT HEAD WO CONTRAST Result Date: 08/25/2021 IMPRESSION: 1. Grossly unchanged large intraparenchymal hematoma centered in the left parietotemporal lobe, with moderate mass effect upon the adjacent structures and unchanged 5 mm left to right midline shift. Report dictated by Meena Wall MD (vice president commercial bank). Dr. RADHA Londono M.D. have personally reviewed and interpreted this examination/study. This report was electronically signed by RADHA TEJADA M.D. on 08/25/2021 9:44 AM . MRI BRAIN WWO CONTRAST Result Date: 08/27/2021 IMPRESSION: Since prior head CT from 08/24/2021: 1.Redemonstration of evolving early subacute hematoma involving the left temporoparietal region with mild surrounding vasogenic edema and mild local mass effect as outlined. 2.No abnormal enhancement to suggest underlying enhancing mass. 3.Findings compatible with hepatic encephalopathy. This report was electronically signed by ALY MATHEWS on08/27/2021 5:26 PM . US ABDOMEN LIMITED Result Date: 08/26/2021 IMPRESSION: 1.Hepatic cirrhosis with sequelae of portal hypertension; there is reversal of normal portal flow directionality. 2.Cholelithiasis with trace pericholecystic fluid. No further sonographicevidence of acute cholecystitis. 3.Nonvisualization of the hepatic veins. 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 4.Trace perihepatic fluid. Report dictated by Axel Weaver MD (vice president commercial bank). This report was approved by Axel Weaver on 08/26/2021 1:57 PM . IDr. TAE have personally reviewed and interpreted this examination/study. This report was electronically signed by TAE PICKARD on 08/26/2021 2:31 PM . XR CHEST 1VW PORTABLE Result Date: 08/28/2021 FINDINGS/IMPRESSION: Endotracheal tube terminates in the midthoracic trachea. Gastric tube courses in the stomach, tip not imaged. Hypoinflated lungs. Slightly increased right lung haziness and basilar opacities. The left lung is clear. No pneumothorax. The cardiomediastinal silhouette is normal. The visible bony thorax is intact. Dictated by Nemesio Graves DO (vice president commercial bank). Dr. PRABHJOT Londono MD have personally reviewed and interpreted this examination/study. This report was electronically signed by PRABHJOT HERRERA MD on 08/28/2021 12:27 PM . XR CHEST 1VW PORTABLE Result Date: 08/26/2021 FINDINGS/IMPRESSION: Endotracheal tube terminates in the midthoracic trachea. Feeding tube courses below the diaphragm, the tip is off the field of the view. The patient is rotated to the right. There are low lung volumes with bronchovascular crowding. No focal consolidation, pleural effusion, or pn eumothorax is seen. The cardiomediastinal silhouette is normal. Report drafted by Octavio Shaffer MD (vice president commercial bank) Dr. MELINA Londono have personally reviewed and interpreted this examination/study. This report was electronically signed by MELINA GAVIRIA on 08/26/2021 2:04 PM . XR CHEST 1VW PORTABLE Result Date: 08/25/2021 FINDINGS/IMPRESSION: Endotracheal tube terminates in the midthoracic trachea. Gastric tube courses in the stomach, tip not imaged. There is no focal consolidation, pleural effusion, or pneumothorax. The cardiomediastinal silhouette is normal. The visible bony thorax is intact. Dictated by Nemesio donahue DO (vice president commercial bank). Dr. PRABHJOT Londono MD have personally reviewed and interpreted this examination/study. This report was electronically signed by PRABHJOT HERRERA MD on 08/25/2021 5:[address] ANGIO BRAIN AND NECK Result Date: 08/25/2021 IMPRESSION: 1.The left A1 and A2 segments are severely hypoplastic with diminutive opacification. There are collaterals arising from the right A2 and A3 segments which supply the left anterior cerebral artery zone. These findings could be congenital/developmental. 2.No angiographic spot sign in theknown left parietotemporal intraparenchymal hemorrhage to suggest active bleeding. 3.No aneurysm orAVM. Findings were discussed with Dr. Vela by Dr. Graves at 7:33 PM on 08/24/2021 via telephone with readback comprehension and verification. Dictated by Nemesio Graves DO (vice president commercial bank) Dr. RADHA Londono M.D. have personally reviewed and interpreted this examination/study. This report was electronically signed by RADHA TEJADA M.D. on 08/25/2021 8:[address] CHEST ABDOMEN PELVIS W CONT Result Date: 08/25/2021 Impression: 1.No acute finding within the chest. [...] was electronically signed by PRANAY GUAMAN MD on 29:42 AM . US ABDOMEN DOPPLER ONLY COMP Result Date: 08/26/2021 IMPRESSION: 1.Hepatic cirrhosis with sequelae of portal hypertension; there is reversal of normal portal flow directionality. 2.Cholelithiasis with trace pericholecystic fluid. No further sonographicevidence of acute cholecystitis. 3.Nonvisualization of the hepatic veins. 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 4.Trace perihepatic fluid. Report dictated by Axel Weaver MD (vice president commercial bank). This report was approved by Axel Weaver on 08/26/2021 1:57 PM . I, Dr. TAE PICKARD have personally reviewed and interpreted this examination/study. This report was electronically signed by TAE PICKARD on 08/26/2021 2:31 PM . XR ABDOMEN KUB PORTABLE Result Date: 08/30/2021 FINDINGS/IMPRESSION: 2 enteric tubes are seen coursing below the diaphragm with tip terminating in the expected location of the gastric fundus. Report dictated by Jose R Bess M.D. (vice president commercial bank). IDr. REMEDIOS MD, [facility] have personally reviewed and interpreted this e xamination/study. This report was electronically signed by REMEDIOS MARQUEZ MD, [facility] on 08/30/2021 2:22 PM . XR ABDOMEN KUB PORTABLE Result Date: 08/25/2021 FINDINGS/IMPRESSION: Enteric tube is seen coursing below the diaphragm with tip terminating in the expected location of the gastric fundus. Report dictated by Jose R Bess M.D. (vice president commercial bank). I, Dr. REMINGTON ROGERS have personally reviewed and interpreted this examination/study. This report was electronically signed by REMINGTON ROGERS on 08/25/2021 11:[address] BRAIN - Stroke Result Date: 08/25/2021 IMPRESSION: 1. Acute intraparenchymal hematoma in the left posterior parietotemporal lobes measuring approximately 3.4 x 3.6 x 3.7 cm with mild surrounding vasogenic edema. Mass effect causes 5 mm left to right midline shift. Findings were discussed with Dr. Vela by Dr. Graves at 7:33 PM on 08/24/2021 via telephone with readback comprehension and verification. Dictated by Nemesio Graves DO (residential finish carpenter) Dr. RADHA Londono M.D. have personally reviewed and interpreted this examination/study. This report was electronically signed by RADHA TEJADA M.D. on 08/25/2021 8:30 AM . Thank you for allowing me to participate in the care of Chester Dubose Jr.. Fannie Blakely, MACIELN, CNRN, SCRN Notch Machine Operator, [facility] Office: [phone] Ascom: [phone] Email: [email or web address] * Francoise Omer APRN-RING PACKER - 08/30/2021 2:37 PM CDTAssociated Order(s): IP CONSULT TO PSYCHIATRY [facility] Consult Psychiatry History and Physical Name: Chestre Dubose Jr. Age: [age] year old Date of : 1970 Location: [facility] Reason for consult: Reported suicide attempt Level of consult: One-time consult to assist in determining a diagnosis and to recommend an appropriate treatment plan History of Present Illness: Chester Dubose Jr. is a 51 year old white male preseting on 08/24/2021 from OSH with intracerebral hemorrhage. Reportedly at OSH pt had stated he wanted to kill himself. Also had reported, he had ingested a bottle worth of crystal meth (approximately 1g worth). On presentation to OSH was mildly altered and then decompensated, having generalized tonic clonic seizure, received ativan and keppra. CTshowed intracerebral bleed. Was intubated and sedated with propofol and versed. Transferred to [facility] on arrival minimally responsive but extending his extremities to noxious stimuli. Loaded with keppraadmitted to ICU Unclear Past psych hx chart indicates bipolar/schizophrenia? with history of polysubstance use-Has seen psychiatrist in past UDS + benzo amphetamine Expanded UDS amphetamine, methamphetamine Levetiracetam, midazolam, nicotine BAL none detected Extubated this am 08/30 11:39, per RN restless not following commands, only stating help propofol now off 08/30 0950 when extubated Remains on precedex Primary team initiated seroquel 50 mg BID on 08/28 and now increasing today to 100 mg BID Received seroquel 50 mg 08/30 1414, 0922 Received haldol 5 mg 08/30 1344, Psychiatry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 coursing below the diaphragm with tip terminating in the expected location of the gastric fundus. Report dictated by Jose R Bess M.D. (vice president commercial bank). I, Dr. REMINGTON ROGERS have personally reviewed and interpreted this examination/study. This report was electronically signed by REMINGTON ROGERS on 08/25/2021 11:[address] BRAIN - Stroke Result Date: 08/25/2021 IMPRESSION: 1. Acute intraparenchymal hematoma in the left posterior parietotemporal lobes measuring approximately 3.4 x 3.6 x 3.7 cm with mild surrounding vasogenic edema. Mass effect causes 5 mm left to right midline shift. Findings were discussed with Dr. Vela by Dr. Graves at 7:33 PM on 08/24/2021 via telephone with readback comprehension and verification. Dictated by Nemesio Graves DO (residential finish carpenter) I, Dr. RADHA TEJADA M.D. have personally reviewed and interpreted this examination/study. This report was electronically signed by RADHA TEJADA M.D. on 08/25/2021 8:30 AM . Procedures: EGD 02/24/2019: Impression: ? - Although the varices did not have any clear ? endoscopic stigmata of recent bleeding, the lack of an ? alternative source prompts the diagnosis of recently ? bled esophageal varices. These were successfully banded. ? - Portal hypertensive gastropathy. MELD-Na score: 14 at 08/26/2021 12:32 AM MELD score: 13 at 08/26/2021 12:32 AM Calculated from: Serum Creatinine: 0.74 mg/dL (Using min of 1 mg/dL) at 08/26/2021 12:32 AM Serum Sodium: 138 mmol/L (Using max of 137 mmol/L) at 08/26/2021 12:32 AM Total Bilirubin: 1.5 mg/dL at 08/24/2021 7:36 PM INR(ratio): 1.7 at 08/24/2021 7:36 PM Age: 51 years Assessment: Chesterwander Dubose Jr. is a 51 year old male with a history of alcohol related liver cirrhosis (follows at [facility]), Hep C s/p treatment polysubstance abuse, bipolar disorder. Patient initially presented to OSH with seizure after ingesting a bottle of crystal myth, he had a seizure CT of the head in the ED showed intraparenchymal hemorrhage. So patient was transferred to [facility] for further management. While inpatient patient he had an US doppler of the liver which showed signs of cirrhosis and new nonvisualization of the hepatic veins. 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 Budd Chiari Syndrome: The hepatic veins couldn't be visualized on US doppler, this is a new findings compared with previous imaging. Decompensated alcohol related liver disease MELD-Na: 13 Complicated with EV (s/p banding 2019), Ascites, HE Follows with [facility] hepatology Intraparenchymal hemorrhage Polysubstance abuse Other co-morbidities: Seizure disorder Recommendations: Anticoagulation is contraindicated for the patient given his intraparenchymal bleed Monitor Liver enzymes, INR Unclear at this time if patient is symptomatic from the budd chiari syndrome, Discuss the case withIR to evaluate for TIPS Continue home Lactulose and Rifaximin Patient and above recommendations to be discussed with GI attending, Dr. Gonsalez, as well as the primary team. Thank you for allowing us to participate in the care of this patient. We will continue to follow this patient with you. Please do not hesitate to contact us with further questions. Harlan Dunbar MD PGY-4, Gastroenterology & Hepatology Fellow [facility] NO HOST Associated attestation - Miroslava Gonsalez MD - 08/27/2021 2:23 PM CASINO HOST I have seen and examined the patient with the resident and I agree with the findings and plan of care as documented by the resident. ETOH cirrhosis, HCV, Polysubstance abuse, bipolar ingested 1 bottle of crystal meth-> seizure-> ICH on CT head. Intubated. Us liver-> concerns for bud chiarisyndrome given nonvisualization of hepatic veins. CT 03/2021 similar findings. Abd exam minimal ascites. Intubated. Unlikely to be acute if we are interpreting the reading of CT and us correctly. It seems unchanged in terms of poor visualization of hep veins. No role for acute anticoagulation or acute interventions arpita in light of ICH Could consider better imaging if a question if there was a change. Abd benign No sig change in LFTs Date of Service: 08-27-[address] 03/2021 LIVER: The liver is diffusely shrunken and nodular, consistent with cirrhosis. No focal liver lesions are identified on this examination. The hepatic veins are not well opacified on this study. The portal veins appear patent. * Irma Marie, DO - 08/27/2021 9:52 AM CSTAssociated Order(s): IP CONSULT TO LOOPING INSPECTOR PULMONARY CONSULT NOTE 08/27/21 9:52 AM Patient Name: Chester Dubose Jr. Date of Admission:08/24/2021 6:40 PM Consult requested by: Neuro Critical Care Team Attending Physician:Olegario Villagomez MD Reason for consultation: Vent management HPI: Chester Dubose Jr. is a 51 year old male w/ PMH bipolar disorder, MDD/anxiety c/b prior suicide attempts, substance use (meth, EtOH, cocaine, marijuana), EtOH cirrhosis who presented to [facility] on 08/24 for suicide attempt. Per notes sister stated he ate a bottle of meth. Herecently lost his home and job and took approximately 1 g of methamphetamine. UDS was positive for amphetamines, cannabinoids. He initially was alert however his mentation decompensated and he was noted to have a generalized tonic clonic seizure (time not specified). He was intubated 08/24. CTH at OSH revealed intracerebral bleed. He was sedated with propofol and versed. He also had HTN and was started on mannitol and nicardipine drip. He was transferred to [facility] for [facility]y evaluation. Upon arrival he was minimally responsive and only having extension of extremities when noxious stimulus applied. Repeat CTH stable and NSGY evaluated patient and no acute intervention recommended. ICU course: 08/24: intubated after tonic clonic seizure 08/27: cEEG with moderate to severe encephalopathy, with very rare left frontal epileptiform discharges, occasional to frequent triphasic waves that were periodic at 2 Hz, and evidence of left temporal dysfunction Interval History: This AM patient is on PSV 8/5 FIO2 35%. He is pulling TV 420-480cc. Propofol paused. Precedex at 0.8. He is not following any commands. REVIEW OF SYSTEMS: unable to obtain as patient is intubated and sedated PAST MEDICAL HISTORY: Past Medical History: Diagnosis Date ??? Anxiety ??? Bipolar 1 disorder 10/07/2018 ??? Cirrhosis ??? COPD (chronic obstructive pulmonary disease) ??? Delirium tremens ??? Depression ??? Depression ??? Substance abuse ??? Suicide attempt PAST SURGICAL HISTORY: Past Surgical History: Procedure Laterality Date ??? Wrist Fracture Repair Left 10/15/2018 Left; OPEN REDUCTION INTERNAL FIXATION (ORIF) WRIST/DISTAL RADIUS SOCIAL HISTORY: Tobacco: per chart review 1 PPD EtOH: per chart daily Drug: positive for cocaine, marijuana, EtOH, meth FAMILY HISTORY: Unable to obtain as patient is intubated and sedated ALLERGIES: No Known Allergies MEDS: ??? 0.9% NaCl 3 mL Intracatheter q8h ??? artificial tears Each Eye q8h ??? chlorhexidine 15 mL Mouth/Throat BID ??? famotidine 20 mg Enteral Tube BID ??? heparin 5,000 Units Subcutaneous q8h ??? lactulose 20 g Enteral Tube TID ??? levETIRAcetam 500 mg Enteral Tube BID ??? rifAXIMin 550 mg Enteral Tube BID ??? tamsulosin 0.4 mg Oral QDAY Temp: [97 ??F (36.1 ??C)-98.9 ??F (37.2 ??C)] 98.7 ??F (37.1 ??C) Pulse: [61-94] 74 Resp: [9-20] 9 BP: (104-137)/(57-86) 120/70 O2 %: [30 %-40 %] 35 % Intake/Output Summary (Last 24 hours) at 08/27/2021 0952 Last data filed at 08/27/2021 0800 Gross per 24 hour Intake 854.24 ml Output 1100 ml Net -245.76 ml Physical Exam: General: Lying in bed, Intubated and sedated HEENT: PERRL, EOMI, MMM, No JVD, OG/ET Tube in place Lungs: CTAB no w/r/r Heart: RRR no m/r/g Abdomen: distended but soft, BS x4 Extremity: No Edema, Pulses 2+ Skin: Warm and dry. No rashes or bruising noted. Neurological: Intubated and Sedated OBJECTIVE: Vitals: 08/27/21 0600 08/27/21 0700 08/27/21 0800 08/27/21 0900 BP: 118/69 107/59 109/59 120/70 Pulse: 62 69 70 74 Resp: 14 14 14 9 Temp: 97.5 ??F (36.4 ??C) 98.7 ??F (37.1 ??C) SpO2: 98% 95% 94% 98% Weight: Height: LABS: Recent Labs Component Name 08/27/21 0023 08/26/21 0032 08/25/21 0420 08/24/216 10/21/18 0359 10/03/18 0000 10/02/18 1610 HGB 13.6 14.4 15.8 12.9 11.2* - 10.0* WBC 8.9 12.8* 3.7 4.5 6.0 - 4.8 HCT 39.3 40.9 43.7 36.1 36.1 - 31.1* MCV 91.0 89.3 87.2 88.5 90.3 - 81.6 PT 19.0* 18.0* 18.3* 19.4* - - 15.9* INR 1.6 1.5 1.5 1.7 - - 1.3 - = values in this interval not displayed. Recent Labs Component Name 08/27/21 0023 08/26/21 0032 08/25/21 0420 08/24/21 1936 10/21/18 0359 10/18/18 0542 10/17/18 0400 10/16/18 0654 10/16/18 0654 10/15/18 0454 10/15/18 0454 BUN 18 18 11 10 6* - 5* - 3* - 4* CREATININE 0.62* 0.74 0.62* 0.66* 0.58* - 0.6 - 0.5* - 0.6 NA 142 138 137 134* - - 138 - 135* - 138 CL 110* 109* 106 104 - - 106 - 105 - 109* CO2 24 23 20* 22 24 - 22 - 24 - 17* CALCIUM 8.2* 8.4 9.1 8.0* 8.8 - 8.1* - 8.0* - 8.3* PHOS 2.7* 4.1 - - - - 2.8 - 2.4 - 3.0 - = values in this interval not displayed. Recent Labs Component Name 08/24/21 1936 10/18/18 0542 10/12/18 0006 10/02/18 2345 ALB 2.7* - 1.6* 2.5* TBILI 1.5* - 2.8* 2.2* ALT 46 20 26 48 AST 79* 84* 105* 210* Recent Labs Component Name 08/24/21220108/24/211935 [id number] 21 22 STUDIES THIS ADMISSION: CXR: reviewed ASSESSMENT & PLAN: # Intubated for airway protection in setting of acute encephalopathy and tonic clonic seizure # Suicide attempt # MDD/anxiety c/b prior suicide attempts # Substance use (meth, EtOH, cocaine, marijuana) # EtOH Cirrhosis # Tonic clonic seizure RECOMMENDATIONS: --continue ventilator support at this time while patient is encephalopathic, lung mechanics appropriate, however, encephalopathy will be limiting factor for extubation --currently on PSV 8/5 FIO2 35%, cont as tolerated Patient to be discussed with attending. Irma Marie DO Pulmonary / Critical Care Fellow Division of Pulmonary, Critical Care, & Sleep Medicine [facility] NO HOST Associated attestation - Justus Yi MD - 08/27/2021 1:17 PM CASINO HOST I have seen and examined the patient with the resident and I agree with the findings and plan of care as documented by the resident. Date of Service: 08/27/21 Justus Yi MD * Abbi Quiles, RD/LD - 08/25/2021 8:47 AM CSTAssociated Order(s): IP CONSULT TO NUTRITIONAL SERV Initial Nutrition Assessment Brief Synopsis: Patient is at Nutrition Risk; Specific criteria can be found in assessment below Nutrition Plan: Continue current diet (NPO) + Establish nutrition source Tube Feeding Recommendations - Continuous: On Propofol @ 19.41mL/hr (512kcal) Vital High Protein at goal of 45 ml/hr +50 ml q 6 hrs free water flush or per MD Provides 1592 kcal, 95 g protein, 121 g carbohydrate, 903 ml free water Tube Feeding Recommendations - Continuous: Off Propofol Vital AF 1.2 Nikhil at goal of 55 ml/hr. +50 ml q 6 hrs free water flush or per MD Provides 1584 kcal, 99 g protein, 146 g carbohydrate and 1070 ml free water Start TF at 20 ml/hr, advance 20 ml q 24 hrs to goal. *New ESPEN guidelines recommend slow advancement rate for ICU patients* Recommendations to Physician: + see recs above. Comments: RD consulted per stroke protocol. Pt noted to be on vent, receiving propofol. TF recs above. Pt not appropriate for education at this time. 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 RD to follow. Assessment: Med/Surg History and Clinical Diagnoses: AMS, hypertensive crisis, and seizure- like episode after crystal meth overdose, found to have left temporoparietal ICH. Height: 6' (182.9 cm) Weight: 158 lb 9.6 oz (71.9 kg) BMI: Body mass index is 21.51 kg/m??. BMI Range: Normal IBW/lb (Calculated) Male: 178 , Recent Weights/Methods 10/02/2018 1601 10/28/2018 1229 11/25/2018 1042 08/24/2021 1859 Weight: 190 lb (86.2 kg) 190 lb (86.2 kg) 190 lb (86.2 kg) 158 lb 9.6 oz (71.9 kg) Wt Comments: Monitoring. Diet order accuracy Current diet order: NPO Nutrition recommendation: alter/change nutrition order P.O.Intake for the past 48 hrs: No data recorded Supplement Consumed (mL) last 48 hrs None Food Allergies: No known food allergies GI Concerns: None Chewing/Swallowing: (vent) Pain affecting intake: No Estimated Needs: KCAL: 7352-1458 (20-25kcal/kg of ABW) Protein (g): 86-143 (1.2-2g/kg of ABW) Fluid (ml): 1 ml/kcal Needs based on: Kcal/kg- (Comment) (ABW = 71.9kg) Recommended Access Route: TF Laboratory values: Recent Labs Component Name 08/25/21 0420 08/24/21 1936 10/21/18 0359 10/18/18 0542 10/18/18 0542 10/17/18 0400 10/12/18 2359 10/12/18 0006 10/03/18 0312 10/02/18 2345 BUN 11 10 6* - 7* 5* - 6* - - CREATININE 0.62* 0.66* 0.58* - 0.53* 0.6 - 0.4* - - NA 137 134* - - - 138 - 138 - - POTASSIUM 3.8 3.9 3.9 - 3.8 3.6 - 3.0* - - CL 106 104 - - - 106 - 109* - - CO2 20* 22 24 - 26 22 - 22 - - GLUCOSE 162* 110 112* - 89 143* - 108 - - CALCIUM 9.1 8.0* 8.8 - 8.7 8.1* - 7.3* - - PROT - 5.9* - - - - - 5.0* - 6.2 ALB - 2.7* - - - - - 1.6* - 2.5* TBILI - 1.5* - - - - - 2.8* - 2.2* ALKPHOS - 116 - - 107 - - 103 - 150 ALT - 46 - - 20 - - 26 - 48 AST - 79* - - 84* - - 105* - 210* ANIONGAP 15 12 6* - 6* 14 - 10 - - BCR 18 15 - - - 8 - 15 - - OSMOLALITY 287 278 - - - 286 - 284 - - AGRATIO - 0.8* - - - - - 0.5* - 0.7* EGFR >90 >90 >60 - >60 >60 - >60 - - EGFRAFR - - >60 - >60 - - - - - - = values in this interval not displayed. No results for input(s): HGBA1C, A1C, [id number], EAG in the last 92136 hours. Medications: Current Facility-Administered Medications Medication ??? 0.9% NaCl injection 3 mL And ??? 0.9% NaCl injection 1-10 mL ??? artificial tears ophthalmic ointment ??? chlorhexidine (Peridex) 0.12 % oral solution 15 mL ??? fentaNYL (PF) (Sublimaze) injection 50 mcg ??? iopamidol (Isovue 370) 76 % contrast ??? levETIRAcetam (Keppra) tablet 500 mg ??? niCARdipine (Cardene) 25 mg in 0.9% NaCl IV 250 mL infusion ??? pantoprazole (Protonix) injection 40 mg ??? propofol (Diprivan) infusion Skin/Wound: WDL Education needed: Stroke Nutrition Therapy Education Provided: Not appropriate (AMS, vent) Nutrition Care Process (1) Nutrition Diagnostic Statement: Inadequate protein-energy intake related to:: enteral or parenteral nutrition infusion not yet at goal volume as evidenced by:: estimated intake insufficient to meet requirements Nutrition Diagnostic Statement Progress: New diagnostic statement established Nutrition Intervention: Enteral nutrition: Monitoring: TF, BM, labs, meds, weight Evaluation: Nutrition Goal: Total intake will meet estimated nutrient needs Nutrition Goal Timeframe: Throughout stay Nutrition Goal Progress: New goal established [phone] NO HOST * Sheryl Whitten RN - 08/25/2021 8:28 AM CSTAssociated Order(s): IP CONSULT TO PHYSICAL MED AND REHAB [facility] Re[facility] has initiated an evaluation per stroke protocol. Will continue to follow for medical stability and tolerance/participation in therapies. Thank you for the referral. Sheryl Whitten RN, BSN Clinical Liaison [facility] [phone] NO HOST * Michael Donahue MD - 08/24/2021 7:10 PM CST Neurosurgery Consult Note Name: Chester Dubose : 1970 Date of Admission:08/24/2021 Date of Consult:08/24/2021 Time of Consult:7:10 PM Patient's chart review seen: 7:10 PM Reason for consult: ICH HISTORY OF PRESENT ILLNESS (HPI): Patient is a 51 year old male with a past medical history of bipolar disorder 1 that presents to [facility] ED as a transfer. Per report, the patient was seen at OSH for AMS and SI after consuming an entirebottle of crystal meth. Upon presentation to OSH, she was alert and oriented but was noted to be on hypertensive crisis followed by seizure-like activity. A head CT at OSH demonstrated a large ICH, Patient was intubated and airvac to [facility] ED for higher level of care. Per report, patient does not take antiplatelets/anticoagulation. Past Medical History: Diagnosis Date ??? Bipolar 1 disorder 10/07/2018 Past Surgical History: Procedure Laterality Date ??? Wrist Fracture Repair Left 10/15/2018 Left; OPEN REDUCTION INTERNAL FIXATION (ORIF) WRIST/DISTAL RADIUS No Known Allergies Current Medications acetaminophen (TYLENOL) 325 MG tablet Take 3 tablets by mouth 3 times daily Maximum allowable Acetaminophen amount = 4 Grams (4000 mg) / 24 hours. ARIPiprazole (ABILIFY) 10 MG tablet artificial tears ophthalmic ointment Instill into both eyes every 8 hours famotidine (PEPCID) 20 MG tablet ferrous sulfate 325 (65 FE) MG tablet Take 1 tablet by mouth daily with breakfast folic acid (FOLVITE) 1 MG tablet 1 tablet by Enteral Tube route once daily guanFACINE (TENEX) 1 MG tablet Take 0.5 tablets by mouth 2 times daily guanFACINE CR 24hr (INTUNIV) 1 MG tablet haloperidol lactate (HALDOL) injection Inject 1 mL into muscle every 6 hours as needed for Agitation lamoTRIgine (LAMICTAL) 25 MG tablet melatonin 3 MG tablet Take 2 tablets by mouth at bedtime multivitamin daily tablet Take 1 tablet by mouth once daily polyethylene glycol 3350 (MIRALAX) packet Take 17 g by mouth once daily thiamine 100 MG Take 1 tablet by mouth once daily Current Facility-Administered Medications Medication ??? 0.9% NaCl injection 3 mL And ??? 0.9% NaCl injection 1-10 mL ??? iopamidol (Isovue 370) 76 % contrast ??? levETIRAcetam (Keppra) 2,750 mg in 0.9% NaCl IV 277.5 mL IVPB ??? midazolam (Versed) 100 mg in 100 mL infusion premix ??? midazolam (Versed) bolus from infusion bag 2 mg ??? niCARdipine (Cardene) 25 mg in 0.9% NaCl IV 250 mL infusion ??? propofol (Diprivan) infusion Current Outpatient Medications Medication ??? acetaminophen (TYLENOL) 325 MG tablet ??? ARIPiprazole (ABILIFY) 10 MG tablet ??? artificial tears ophthalmic ointment ??? famotidine (PEPCID) 20 MG tablet ??? ferrous sulfate 325 (65 FE) MG tablet ??? folic acid (FOLVITE) 1 MG tablet ??? guanFACINE (TENEX) 1 MG tablet ??? guanFACINE CR 24hr (INTUNIV) 1 MG tablet ??? haloperidol lactate (HALDOL) injection ??? lamoTRIgine (LAMICTAL) 25 MG tablet ??? melatonin 3 MG tablet ??? multivitamin daily tablet ??? polyethylene glycol 3350 (MIRALAX) packet ??? thiamine 100 MG Social History Tobacco Use ??? Smoking status: Former Smoker Packs/day: 1.00 Types: Cigarettes ??? Smokeless tobacco: Never Used Substance Use Topics ??? Alcohol use: Yes Comment: used EtOH today No family history on file. REVIEW OF SYSTEMS Pertinent items per HPI. PHYSICAL EXAM Pulse 98 Wt 158 lb 9.6 oz (71.9 kg) SpO2 100% BMI 21.51 kg/m2 Neuro: GCS: 4T (E1, V1T, M2) intubated, sedated on propofol and versed, ou=r, +corneals, +cough, extending extremities x4 LABORATORY Recent Labs Component Name 10/21/18 0359 WBC 6.0 HGB 11.2* HCT 36.1 PLTCOUNT 340 Recent Labs Component Name 10/21/18 0359 10/18/18 0542 10/17/18 0400 NA - - 138 POTASSIUM 3.9 - 3.6 CHLORIDE 107 - - CO2 24 - 22 BUN 6* - 5* CREATININE 0.58* - 0.6 GLUCOSE 112* - 143* - = values in this interval not displayed. Recent Labs Component Name 10/02/18 [address] head: left temporoparietal ICH ~24 c. Regional mass effect with ~3mm rightward midline shift. NoIVH. No ventriculomegaly. Assessment: 51 year old male that presents with AMS, hypertensive crisis, and seizure-like episode after crystal meth overdose. Head CT demonstrating and left temporoparietal ICH. ICH score on arrival: 2 Plan: - Continue to follow neuro exam, q1h neuro checks - Please repeat CT head 6 hours after prior scan - Na goal 140-145 - Hold any antiplatelets/anticoagulation at this time - Page Neurosurgery with any acute decline in neuro exam and obtain stat head CT - Overall care per NeuroICU Case discussed with Dr. Saldana. Michael Donahue MD 08/24/2021 7:10 PM NO HOST documented in this encounter ED Notes * Romel Lantigua RN - 08/24/2021 7:26 PM CST Bed: AC30 Expected date: Expected time: Means of arrival: Comments: T5 NO HOST * Pam Condon RN - 08/24/2021 7:14 PM CST Time of first slice. NO HOST * Thien Augustin MD - 08/24/2021 7:06 PM CST Images from the original note were not included. OSH CT scan NO HOST * Romel Lantigua RN - 08/24/2021 6:52 PM CST Bed: T05 Expected date: Expected time: Means of arrival: Comments: Code stroke Page [phone] NO HOST * Thien Augustin MD - 08/24/2021 6:44 PM CST ED ATTENDING NOTE Patient seen as a team with the resident Dr. Fleming, who has contributed to this note. History: Chester Dubose Jr. is a 51 year old male with a past medical history that includes Bipolar 1 disorder [facility]. Patient is intubated upon arrival and is not responsive. [facility] flight notes that patient presented to OSH today for AMS and SI after consuming an entire bottle of crystal meth. Upon his presentation to OSH, he was alert and oriented but then began exhibiting hypertensive emergencies with seizure-like activity. He was given Versed, Propofol, Nicardipine, Keppra, and a bolus. Patient was unresponsive for the air evac team. He is not on any medications at this time. Patient also has a known large ICH from OSH imaging at this time. HPI limited 2/2 secondary to patient intubation. Past Medical History: Diagnosis Date Anxiety Bipolar 1 disorder 10/07/2018 Cirrhosis COPD (chronic obstructive pulmonary disease) Delirium tremens Depression Depression Substance abuse Suicide attempt Past Surgical History: Procedure Laterality Date Wrist Fracture Repair Left 10/15/2018 Left; OPEN REDUCTION INTERNAL FIXATION (ORIF) WRIST/DISTAL RADIUS Social History Socioeconomic History Marital status: Single Spouse name: Not on file Number of children: Not on file Years of education: Not on file Highest education level: Not on file Occupational History Not on file Tobacco Use Smoking status: Former Smoker Packs/day: 1.00 Types: Cigarettes Smokeless tobacco: Never Used Substance and Sexual Activity Alcohol use: Yes Comment: used EtOH today Drug use: Yes Types: Marijuana, Cocaine Sexual activity: Not on file Other Topics Concern Not on file Social History Narrative Not on file Social Determinants of Health Financial Resource Strain: Not on file Food Insecurity: Not on file Transportation Needs: Not on file Physical Activity: Not on file Stress: Not on file Social Connections: Not on file Intimate Partner Violence: Not on file Housing Stability: Not on file Review of Systems: (+) positive ROS limited 2/2 secondary to patient intubation. Vitals: 08/24/21201408/24/21201908/24/21202408/24/212029 BP: 115/67 117/65 116/67 117/67 Pulse: 81 81 81 81 Resp: 16 16 13 Temp: SpO2: 100% 99% 99% 99% Weight: Exam: Constitutional: well developed, well nourished, no acute distress, intubated. HENT: atraumatic, moist oral mucosa, conjunctiva normal, sclarea non icteric Eyes: no injection, no discharge, pupils 4 mm equal and reactive bilaterally Neck: supple, trachea midline Cardiovascular: Tachycardic rate and regular rhythm, no murmur Chest: equal course breath sounds. Abdomen: soft, non-tender, non-distended Genitourinary: normal Extremities: no edema or deformities Skin: warm, dry, no lesions Neurological: Intubated, moves all extremities with tonic/clonic movements in response to pain. MDM: Dx: Intraparenchymal hemorrhage likely secondary to hypertensive emergency secondary to meth overdose with possible toxicity from other substance. DDx: ICH vs. Hypertensive emergency vs. Meth overdose vs. Other substance overdose vs. Aspirations vs. Mesenteric ischemia vs. suicidal ideations vs. Other. Plan: Neurosurgery and stroke consult, will need ICU admission. ED Course: 6:40 PM: Patient BIB Air Evac to Trauma bay, respiratory therapy and Neurology services present at patient's bedside. 6:41 PM: Patient placed on Trauma bay ventilator instead of Air Evac ventilation. 7:02 PM: Poison control paged for the first time. They recommend symptomatic care, EKG, potassium, creatine kinase, calcium, and given Benzos at this time. 7:03 PM: Patient taken for CT imaging at this time. 7:30 PM: Patient admitted to Neuro ICU under the supervision of Dr. Riley for large intraparenchymal hemorrhage. After discussion with Neuro ICU, the patient will be admitted to their service for further management of care. 7:48 PM: Neurosurgery has no acute intervention to offer at this time. Patient will still be admitted to Neuro ICU. 9:00 PM: In-patient bed assigned and patient will be transported to Neuro ICU. The patient's Oxygen Saturation Monitor was interpreted by me.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 11:49 AM CDT Valdo Arevalo MD LAB - CHEMISTRY MIGUEL GOLD [facility] [address] [place] [address], [facility] [phone] * EKG 12-LEAD (09/07/2021 11:21 AM CDT) Ventricular Rate 86 BPM [facility] MUSE Atrial Rate 86 BPM [facility] MUSE P-R Interval 138 ms [facility] MUSE QRS Duration ms 84 ms [facility] MUSE Q-T Interval ms 380 ms [facility] MUSE QTC Calculation (Bezet) 454 ms [facility] MUSE Calculated P [place] 37 degrees [facility] MUSE Calculated R [place] 55 degrees [facility] MUSE Calculated [place] 48 degrees [facility] MUSE Interpretation EKG SINUS RHYTHM WITH OCCASIONAL PREMATURE VENTRICULAR COMPLEXES OTHERWISE NORMAL ECG WHEN COMPARED WITH ECG OF 05-SEP-2021 15:03, PREMATURE VENTRICULAR COMPLEXES ARE NOW PRESENT Confirmed by Rod Friedman ([id number]) on 09/09/2021 9:07:03 AM [facility] MUSE 09/07/2021 11:2 1 AM CDT 09/09/2021 9:07 AM CDT Valdo Arevalo MD ECG ORDERABLES [facility] MUSE * (ABNORMAL) PHOSPHORUS BLOOD (09/06/2021 1:46 AM CDT) Pathologist [facility] Phosphorus 2.4(L) 2.8 - 5.1 mg/dL 09/06/2021 2:51 AM CDT [facility] Blood BLOOD SPECIMEN / Unknown Lab Venipuncture / Unknown 09/06/2021 1:46 AM CDT 09/06/2021 2:21 AM CDT Olegario Villagomez MD LAB - CHEMISTRY ORD ERABLES [address] [address], [facility] [phone] * MAGNESIUM BLOOD (09/06/2021 1:46 AM CDT) Magnesium 1.6 1.6 - 2.6 mg/dL 09/06/2021 2:51 AM CDT [facility] Blood BLOOD SPECIMEN / Unknown Lab Venipuncture / Unknown 09/06/2021 1:46 AM CDT 09/06/2021 2:21 AM CDT Olegario Villagomez MD LAB - CHEMISTRY ORD ERABLES [facility] [address] [place] [address], [facility] [phone] * (ABNORMAL) CBC W/O DIFFERENTIAL (09/06/2021 1:46 AM CDT) WBC 9.2 3.5 - 10.5 10? 3 /uL 09/06/2021 2:41 AM [facility] RBC 3.44(L) 4.30 - 5.70 10? 6 /uL 09/06/2021 2:41 AM [facility] Hemoglobin 11.0(L) 12.0 - 17.6 g/dL 09/06/2021 2:41 AM [facility] Hematocrit 32.3(L) 35.2 - 51.7 % 09/06/2021 2:41 AM [facility] MCV 93.9 80.7 - 98.3 fL 09/06/2021 2:41 AM [facility] MCH 32.0 26.7 - 34.0 pg 09/06/2021 2:41 AM [facility] MCHC 34.1 30.8 - 35.9 g/dL 09/06/2021 2:41 AM [facility] Platelet Count 93(L) 150 - 400 10? 3 /uL 09/06/2021 2:41 AM [facility] RDW-SD 50.1(H) 36.0 - 50.0 fL 09/06/2021 2:41 AM [facility] RDW-CV 14.8 11.2 - 14.8 % 09/06/2021 2:41 AM [facility] MPV 10.1 9.4 - 12.9 fL 09/06/2021 2:41 AM [facility] nRBC Absolute 0.00 0 10? 3 /uL 09/06/2021 2:41 AM [facility] nRBC Auto 0.0 0 /100 WBC 09/06/2021 2:41 AM [facility] Blood BLOOD SPECIMEN / Unknown Lab Venipuncture / Unknown 09/06/2021 1:46 AM CDT 09/06/2021 2:21 AM CDT Olegario Villagomez MD LAB - HEMATOLOGY OR DERABLES [facility] [address] [place] [address], [facility] [phone] * (ABNORMAL) BASIC METABOLIC PANEL (CALCIUM TOTAL) (09/06/2021 1:46 AM CDT) BUN 8 7 - 26 mg/dL 09/06/2021 2:51 AM [facility] Creatinine 0.63(L) 0.71 - 1.16 mg/dL 09/06/2021 2:51 AM [facility] Sodium 133(L) 136 - 145 mmol/L 09/06/2021 2:51 AM [facility] Potassium 3.8 3.5 - 4.5 mmol/L 09/06/2021 2:51 AM [facility] Chloride 103 98 - 107 mmol/L 09/06/2021 2:51 AM [facility] CO2 21(L) 22 - 29 mmol/L 09/06/2021 2:51 AM [facility] Glucose 121(H) 70 - 115 mg/dL 09/06/2021 2:51 AM [facility] Calcium 7.4(L) 8.4 - 10.2 mg/dL 09/06/2021 2:51 AM [facility] Anion Gap 13 8 - 18 09/06/2021 2:51 AM [facility] BUN/Creatinine Ratio 13 7 - 23 09/06/2021 2:51 AM [facility] Osmolality Calculated 276 270 - 300 mOsm/kg 09/06/2021 2:51 AM [facility] eGFR by CKD-EPI >90 >=90 mL/min/1.7 3 m2 09/06/2021 2:51 AM [facility] Blood BLOOD SPECIMEN / Unknown Lab Venipuncture / Unknown 09/06/2021 1:46 AM CDT 09/06/2021 2:21 AM CDT Olegario Villagomez MD LAB - CHEMISTRY ORD ERABLES Performing Organization Address [facility] Co de Phone Number [facility] [address] [place] [address], [place] [phone] * EKG 12-LEAD (09/05/2021 3:03 PM CDT) Ventricular Rate 93 BPM [facility] MUSE Atrial Rate 93 BPM [facility] MUSE P-R Interval 144 ms [facility] MUSE QRS Duration ms 84 ms [facility] MUSE Q-T Interval ms 372 ms [facility] MUSE QTC Calculation (Bezet) 462 ms [facility] MUSE Calculated P [place] 23 degrees SL MUSE Calculated R [place] 44 degrees [facility] MUSE Calculated T [place] 57 degrees [facility] MUSE Interpretation EKG NORMAL SINUS RHYTHM NORMAL ECG WHEN COMPARED WITH ECG OF 01-SEP-2021 14:41, HR HAS INCREASED BY ??26 BPM QT HAS SHORTENED Confirmed by Rod Friedman [id number]) on 09/07/2021 11:45:48 AM [facility] MUSE 09/05/2021 3:03 PM CDT 09/07/2021 11:45 AM CDT Valdo Arevalo MD ECG ORDERABLES Performing Organization Address [facility] de Phone Number [facility] MUSE * (ABNORMAL) PHOSPHORUS BLOOD (09/05/2021 1:22 AM CDT) [facility] Phosphorus 2.7(L) 2.8 - 5.1 mg/dL 09/05/2021 2:54 AM CDT [facility] Blood BLOOD SPECIMEN / Unknown Lab Venipuncture / Unknown 09/05/2021 1:22 AM CDT 09/05/2021 2:26 AM CDT Olegario Villagomez MD LAB - CHEMISTRY ORD ERABLES Performing Organization Address [facility]/ZIP Co de Phone Number [facility] [address] [place] [address], [place] [phone] * MAGNESIUM BLOOD (09/05/2021 1:22 AM CDT) Pathologist [facility] Magnesium 1.7 1.6 - 2.6 mg/dL 09/05/2021 2:54 AM [facility] Blood BLOOD SPECIMEN / Unknown Lab Venipuncture / Unknown 09/05/2021 1:22 AM CDT 09/05/2021 2:26 AM CDT Olegario Villagomez MD LAB - CHEMISTRY ORD ERABLES [facility] [address] [place] [address], [facility] [phone] * (ABNORMAL) CBC W/O DIFFERENTIAL (09/05/2021 1:22 AM CDT) Pathologist [facility] WBC 8.1 3.5 - 10.5 10? 3 /uL 09/05/2021 2:33 AM [facility] RBC 3.56(L) 4.30 - 5.70 10? 6 /uL 09/05/2021 2:33 AM [facility] Hemoglobin 11.3(L) 12.0 - 17.6 g/dL 09/05/2021 2:33 AM [facility] Hematocrit 33.1(L) 35.2 - 51.7 % 09/05/2021 2:33 AM [facility] MCV 93.0 80.7 - 98.3 fL 09/05/2021 2:33 AM [facility] MCH 31.7 26.7 - 34.0 pg 09/05/2021 2:33 AM [facility] MCHC 34.1 30.8 - 35.9 g/dL 09/05/2021 2:33 AM [facility] Platelet Count 106(L) 150 - 400 10? 3 /uL 09/05/2021 2:33 AM [facility] RDW-SD 50.9(H) 36.0 - 50.0 fL 09/05/2021 2:33 AM [facility] RDW-CV 14.9(H) 11.2 - 14.8 % 09/05/2021 2:33 AM [facility] MPV 9.6 9.4 - 12.9 fL 09/05/2021 2:33 AM [facility] nRBC Absolute 0.00 0 10? 3 /uL 09/05/2021 2:33 AM [facility] nRBC Auto 0.0 0 /100 WBC 09/05/2021 2:33 AM [facility] Blood BLOOD SPECIMEN / Unknown Lab Venipuncture / Unknown 09/05/2021 1:22 AM CDT 09/05/2021 2:21 AM CDT Olegario Villagomez MD LAB - HEMATOLOGY OR DERABLES Performing Organization Address City/State/[facility] Co de Phone Number [facility] [address] [place] [address], [facility] [phone] * (ABNORMAL) BASIC METABOLIC PANEL (CALCIUM TOTAL) (09/05/2021 1:22 AM CDT) BUN 10 7 - 26 mg/dL 09/05/2021 2:54 AM [facility] Creatinine 0.70(L) 0.71 - 1.16 mg/dL 09/05/2021 2:54 AM [facility] Sodium 138 136 - 145 mmol/L 09/05/2021 2:54 AM [facility] Potassium 4.0 3.5 - 4.5 mmol/L 09/05/2021 2:54 AM [facility] Chloride 108(H) 98 - 107 mmol/L 09/05/2021 2:54 AM [facility] CO2 23 22 - 29 mmol/L 09/05/2021 2:54 AM [facility] Glucose 96 70 - 115 mg/dL 09/05/2021 2:54 AM [facility] Calcium 7.9(L) 8.4 - 10.2 mg/dL 09/05/2021 2:54 AM [facility] Anion Gap 11 8 - 18 09/05/2021 2:54 AM [facility] BUN/Creatinine Ratio 14 7 - 23 09/05/2021 2:54 AM CDT [facility] Osmolality Calculated 285 270 - 300 mOsm/kg 09/05/2021 2:54 AM CDT [facility] eGFR by CKD-EPI >90 >=90 mL/min/1.7 3 m2 09/05/2021 2:54 AM CDT [facility] Blood BLOOD SPECIMEN / Unknown Lab Venipuncture / Unknown 09/05/2021 1:22 AM CDT 09/05/2021 2:26 AM CDT Olegario Villagomez MD LAB - CHEMISTRY ORD ERABLES [address] [address], [facility] [phone] * (ABNORMAL) PHOSPHORUS BLOOD (09/04/2021 2:03 AM CDT) Phosphorus 2.7(L) 2.8 - 5.1 mg/dL 09/04/2021 3:56 AM CDT [facility] Blood BLOOD SPECIMEN / Unknown Lab Venipuncture / Unknown 09/04/2021 2:03 AM CDT 09/04/2021 3:26 AM CDT Olegario Villagomez MD LAB - CHEMISTRY ORD ERABLES Performing Organization Address City/[facility]/ZIP Co de Phone Number [address] [address], [facility] [phone] * MAGNESIUM BLOOD (09/04/2021 2:03 AM CDT) Magnesium 1.8 1.6 - 2.6 mg/dL 09/04/2021 3:56 AM CDT [facility] Blood BLOOD SPECIMEN / Unknown Lab Venipuncture / Unknown 09/04/2021 2:03 AM CDT 09/04/2021 3:26 AM CDT Olegario Villagomez MD LAB - CHEMISTRY ORD ERABLES [address] [id number] [phone] * (ABNORMAL) CBC W/O DIFFERENTIAL (09/04/2021 2:03 AM T) WBC 5.1 3.5 - 10.5 10? 3 /uL 09/04/2021 3:34 AM [facility] RBC 3.83(L) 4.30 - 5.70 10? 6 /uL 09/04/2021 3:34 AM [facility] Hemoglobin 12.2 12.0 - 17.6 g/dL 09/04/2021 3:34 AM [facility] Hematocrit 36.3 35.2 - 51.7 % 09/04/2021 3:34 AM [facility] MCV 94.8 80.7 - 98.3 fL 09/04/2021 3:34 AM [facility] MCH 31.9 26.7 - 34.0 pg 09/04/2021 3:34 AM [facility] MCHC 33.6 30.8 - 35.9 g/dL 09/04/2021 3:34 AM [facility] Platelet Count 111(L) 150 - 400 10? 3 /uL 09/04/2021 3:34 AM [facility] RDW-SD 51.5(H) 36.0 - 50.0 fL 09/04/2021 3:34 AM [facility] RDW-CV 14.9(H) 11.2 - 14.8 % 09/04/2021 3:34 AM [facility] MPV 9.8 9.4 - 12.9 fL 09/04/2021 3:34 AM [facility] nRBC Absolute 0.00 0 10? 3 /uL 09/04/2021 3:34 AM [facility] nRBC Auto 0.0 0 /100 WBC 09/04/2021 3:34 AM [facility] Blood BLOOD SPECIMEN / Unknown Lab Venipuncture / Unknown 09/04/2021 2:03 AM CDT 09/04/2021 3:26 AM T Olegario Villagomez MD LAB - HEMATOLOGY OR DERABLES Performing Organization Address City/[facility]/ZIP Co de Phone Number [facility] [address] [place] [address], [facility] [phone] * (ABNORMAL) BASIC METABOLIC PANEL (CALCIUM TOTAL) (09/04/2021 2:03 AM CDT) BUN 12 7 - 26 mg/dL 09/04/2021 3:56 AM [facility] Creatinine 0.66(L) 0.71 - 1.16 mg/dL 09/04/2021 3:56 AM [facility] Sodium 142 136 - 145 mmol/L 09/04/2021 3:56 AM [facility] Potassium 3.9 3.5 - 4.5 mmol/L 09/04/2021 3:56 AM [facility] Chloride 110(H) 98 - 107 mmol/L 09/04/2021 3:56 AM [facility] CO2 25 22 - 29 mmol/L 09/04/2021 3:56 AM [facility] Glucose 104 70 - 115 mg/dL 09/04/2021 3:56 AM [facility] Calcium 8.2(L) 8.4 - 10.2 mg/dL 09/04/2021 3:56 AM [facility] Anion Gap 11 8 - 18 09/04/2021 3:56 AM [facility] BUN/Creatinine Ratio 18 7 - 23 09/04/2021 3:56 AM [facility] Osmolality Calculated 294 270 - 300 mOsm/kg 09/04/2021 3:56 AM [facility] eGFR by CKD-EPI >90 >=90 mL/min/1.7 3 m2 09/04/2021 3:56 AM [facility] Blood BLOOD SPECIMEN / Unknown Lab Venipuncture / Unknown 09/04/2021 2:03 AM CDT 09/04/2021 3:26 AM T Olegario Villagomez MD LAB - CHEMISTRY ORD ERABLES [facility] [address] [place] [address], [facility] [phone] * PHOSPHORUS BLOOD (09/03/2021 2:06 AM CDT) Pathologist [facility] Phosphorus 2.8 2.8 - 5.1 mg/dL 09/03/2021 4:05 AM CDT [facility] Blood BLOOD SPECIMEN / Unknown Lab Venipuncture / Unknown 09/03/2021 2:06 AM CDT 09/03/2021 3:35 AM CDT Olegario Villagomez MD LAB - CHEMISTRY ORD ERABLES [address] [address], [facility] [phone] * MAGNESIUM BLOOD (09/03/2021 2:06 AM CDT) Pathologist [facility] Magnesium 1.8 1.6 - 2.6 mg/dL 09/03/2021 4:05 AM CDT [facility] Blood BLOOD SPECIMEN / Unknown Lab Venipuncture / Unknown 09/03/2021 2:06 AM CDT 09/03/2021 3:35 AM CDT Olegario Villagomez MD LAB - CHEMISTRY ORD ERABLES [address] [address], [facility] [phone] * (ABNORMAL) CBC W/O DIFFERENTIAL (09/03/2021 2:06 AM CDT) Pathologist [facility] WBC 6.4 3.5 - 10.5 10? 3 /uL 09/03/2021 3:59 AM CDT [facility] RBC 3.71(L) 4.30 - 5.70 10? 6 /uL 09/03/2021 3:59 AM CDT [facility] Hemoglobin 11.7(L) 12.0 - 17.6 g/dL 09/03/2021 3:59 AM CDT [facility] Hematocrit 35.0(L) 35.2 - 51.7 % 09/03/2021 3:59 AM [facility] MCV 94.3 80.7 - 98.3 fL 09/03/2021 3:59 AM [facility] MCH 31.5 26.7 - 34.0 pg 09/03/2021 3:59 AM [facility] MCHC 33.4 30.8 - 35.9 g/dL 09/03/2021 3:59 AM [facility] Platelet Count 109(L) 150 - 400 10? 3 /uL 09/03/2021 3:59 AM [facility] RDW-SD 52.4(H) 36.0 - 50.0 fL 09/03/2021 3:59 AM [facility] RDW-CV 15.2(H) 11.2 - 14.8 % 09/03/2021 3:59 AM [facility] MPV 10.6 9.4 - 12.9 fL 09/03/2021 3:59 AM [facility] nRBC Absolute 0.00 0 10? 3 /uL 09/03/2021 3:59 AM [facility] nRBC Auto 0.0 0 /100 WBC 09/03/2021 3:59 AM [facility] Blood BLOOD SPECIMEN / Unknown Lab Venipuncture / Unknown 09/03/2021 2:06 AM CDT 09/03/2021 3:35 AM CDT Olegario Villagomez MD LAB - HEMATOLOGY OR DERABLES Performing Organization Address [facility] Co de Phone Number [address] [address] [phone] * (ABNORMAL) BASIC METABOLIC PANEL (CALCIUM TOTAL) (09/03/2021 2:06 AM CDT) BUN 13 7 - 26 mg/dL 09/03/2021 4:05 AM [facility] Creatinine 0.75 0.71 - 1.16 mg/dL 09/03/2021 4:05 AM [facility] Sodium 143 136 - 145 mmol/L 09/03/2021 4:05 AM [facility] Potassium 3.8 3.5 - 4.5 mmol/L 09/03/2021 4:05 AM [facility] Chloride 113(H) 98 - 107 mmol/L 09/03/2021 4:05 AM [facility] CO2 23 22 - 29 mmol/L 09/03/2021 4:05 AM [facility] Glucose 94 70 - 115 mg/dL 09/03/2021 4:05 AM [facility] Calcium 7.9(L) 8.4 - 10.2 mg/dL 09/03/2021 4:05 AM [facility] Anion Gap 11 8 - 18 09/03/2021 4:05 AM [facility] BUN/Creatinine Ratio 17 7 - 23 09/03/2021 4:05 AM [facility] Osmolality Calculated 296 270 - 300 mOsm/kg 09/03/2021 4:05 AM [facility] eGFR by CKD-EPI >90 >=90 mL/min/1.7 3 m2 09/03/2021 4:05 AM [facility] Blood BLOOD SPECIMEN / Unknown Lab Venipuncture / Unknown 09/03/2021 2:06 AM CDT 09/03/2021 3:35 AM T Olegario Villagomez MD LAB - CHEMISTRY ORD ERABLES [facility] [address] [place] [address], [facility] [phone] * (ABNORMAL) PT-INR [facility] (09/03/2021 2:06 AM CDT) PT 17.0(H) 12.1 - 14.8 Seconds 09/03/2021 3:50 AM [facility] INR 1.4 See Comment 09/03/2021 3:50 AM [facility] Comment:The suggested therap eutic range for standard coumadin (warfarin) therapy is an INR of 2.0-3.0. For high-risk patients (Mechanical Mitral Valve Prosthesis, etc.), the suggested prophylactic therapeutic range is an INR of 2.5-3.5. Blood BLOOD SPECIMEN / Unknown Lab Venipuncture / Unknown 09/03/2021 2:06 AM CDT 09/03/2021 3:40 AM CDT Gabriele Riley MD LAB - COAGULATION OR DERABLES Performing Organization Address [facility] Co de Phone Number [address] [address], [facility] [phone] * (ABNORMAL) PT-INR [facility] (09/01/2021 11:13 PM CDT) PT 17.4(H) 12.1 - 14.8 Seconds 09/01/2021 11:32 PM CDT [facility]ORATORY [facility] INR 1.4 See Comment 09/01/2021 11:32 PM CDT [facility] Comment:The suggested therap eutic range for standard coumadin (warfarin) therapy is an INR of 2.0-3.0. For high-risk patients (Mechanical Mitral Valve Prosthesis, etc.), the suggested prophylactic therapeutic range is an INR of 2.5-3.5. Blood BLOOD SPECIMEN / Unknown Venipuncture / Unknown 09/01/2021 11:13 PM CDT 09/01/2021 11:22 PM CDT Gabriele Riley MD LAB - COAGULATION OR DERABLES Performing Organization Address [facility] Co de Phone Number [address] [address], [place] [phone] * PHOSPHORUS BLOOD (09/01/2021 11:13 PM CDT) Phosphorus 4.0 2.8 - 5.1 mg/dL 09/01/2021 11:51 PM CDT [facility] Blood BLOOD SPECIMEN / Unknown Venipuncture / Unknown 09/01/2021 11:13 PM CDT 09/01/2021 11:17 PM CDT Gabriele Riley MD LAB - CHEMISTRY MIGUEL GOLD Performing Organization Address City/[facility]/ZIP Co de Phone Number [address] [address], [facility] [phone] * MAGNESIUM BLOOD (09/01/2021 11:13 PM CDT) Pathologist [facility] Magnesium 1.8 1.6 - 2.6 mg/dL 09/01/2021 11:51 PM [facility] Blood BLOOD SPECIMEN / Unknown Venipuncture / Unknown 09/01/2021 11:13 PM CDT 09/01/2021 11:17 PM CDT Gabriele Riley MD LAB - CHEMISTRY MIGUEL GOLD [facility] Organization Address City/State/ZIP Co de Phone Number [facility] [address] [place] [address], [facility] [phone] * (ABNORMAL) CBC W/O DIFFERENTIAL (09/01/2021 11:13 PM CDT) Pathologist [facility] WBC 7.8 3.5 - 10.5 10? 3 /uL 09/01/2021 11:25 PM [facility] RBC 3.99(L) 4.30 - 5.70 10? 6 /uL 09/01/2021 11:25 PM [facility] Hemoglobin 12.6 12.0 - 17.6 g/dL 09/01/2021 11:25 PM [facility] Hematocrit 36.3 35.2 - 51.7 % 09/01/2021 11:25 PM [facility] MCV 91.0 80.7 - 98.3 fL 09/01/2021 11:25 PM [facility] MCH 31.6 26.7 - 34.0 pg 09/01/2021 11:25 PM [facility] MCHC 34.7 30.8 - 35.9 g/dL 09/01/2021 11:25 PM [facility] Platelet Count 114(L) 150 - 400 10? 3 /uL 09/01/2021 11:25 PM [facility] RDW-SD 50.3(H) 36.0 - 50.0 fL 09/01/2021 11:25 PM [facility] RDW-CV 14.9(H) 11.2 - 14.8 % 09/01/2021 11:25 PM [facility] MPV 10.6 9.4 - 12.9 fL 09/01/2021 11:25 PM [facility] nRBC Absolute 0.00 0 10? 3 /uL 09/01/2021 11:25 PM [facility] nRBC Auto 0.0 0 /100 WBC 09/01/2021 11:25 PM [facility] Blood BLOOD SPECIMEN / Unknown Venipuncture / Unknown 09/01/2021 11:13 PM CDT 09/01/2021 11:16 PM CDT Gabriele Riley MD LAB - HEMATOLOGY ORD ERABLES [facility] [address] [place] [address], [facility] [phone] * (ABNORMAL) BASIC METABOLIC PANEL (CALCIUM TOTAL) (09/01/2021 11:13 PM CDT) BUN 15 7 - 26 mg/dL 09/01/2021 11:51 PM [facility] Creatinine 0.79 0.71 - 1.16 mg/dL 09/01/2021 11:51 PM [facility] Sodium 142 136 - 145 mmol/L 09/01/2021 11:51 PM [facility] Potassium 3.8 3.5 - 4.5 mmol/L 09/01/2021 11:51 PM [facility] Chloride 111(H) 98 - 107 mmol/L 09/01/2021 11:51 PM [facility] CO2 23 22 - 29 mmol/L 09/01/2021 11:51 PM [facility] Glucose 102 70 - 115 mg/dL 09/01/2021 11:51 PM [facility] Calcium 7.6(L) 8.4 - 10.2 mg/dL 09/01/2021 11:51 PM [facility] Anion Gap 12 8 - 18 09/01/2021 11:51 PM [facility] BUN/Creatinine Ratio 19 7 - 23 09/01/2021 11:51 PM CDT [facility] Osmolality Calculated 295 270 - 300 mOsm/kg 09/01/2021 11:51 PM CDT [facility] eGFR by CKD-EPI >90 >=90 mL/min/1.7 3 m2 09/01/2021 11:51 PM CDT [facility] Blood BLOOD SPECIMEN / Unknown Venipuncture / Unknown 09/01/2021 11:13 PM CDT 09/01/2021 11:17 PM CDT Gabriele Riley MD LAB - CHEMISTRY MIGUEL GOLD [facility] [address] [place] [address], [facility] [phone] * EKG 12-LEAD (09/01/2021 2:41 PM CDT) Ventricular Rate 67 BPM [facility] MUSE Atrial Rate 67 BPM [facility] MUSE P-R Interval 150 ms [facility] MUSE QRS Duration ms 88 ms [facility] MUSE Q-T Interval ms 456 ms [facility] MUSE QTC Calculation (Bezet) 481 ms [facility] MUSE Calculated P [place] 52 degrees [facility] MUSE Calculated R [place] 41 degrees [facility] MUSE Calculated T [place] 49 degrees [facility] MUSE Interpretation EKG NORMAL SINUS RHYTHM PROLONGED QT ABNORMAL ECG WHEN COMPARED WITH ECG OF 30-AUG-2021 10:04, NO SIGNIFICANT CHANGE WAS FOUND Confirmed by Rod Friedman ([id number]) on 09/06/2021 6:18:05 PM [facility] MUSE 09/01/2021 2:41 PM CDT 09/06/2021 6:18 PM CDT Olegario Villagomez MD ECG ORDERABLES Performing Organization Address City/[facility]/ZIP Co de Phone Number [facility] MUSE * AMMONIA (09/01/2021 12:06 AM CDT) Ammonia 24 <=72 umol/L 09/01/2021 12:23 AM CDT [facility] Blood BLOOD SPECIMEN / Unknown Venipuncture / Unknown 09/01/2021 12:06 AM CDT 09/01/2021 12:12 AM CDT Olegario Villagomez MD LAB - CHEMISTRY ORD TIPBLES Performing Organization Address [facility] Co de Phone Number [address] [address], [place] [phone] * (ABNORMAL) PT-INR [facility] (09/01/2021 12:01 AM CDT) PT 17.4(H) 12.1 - 14.8 Seconds 09/01/2021 12:25 AM CDT [facility] INR 1.4 See Comment 09/01/2021 12:25 AM CDT [facility] Comment:The suggested therap eutic range for standard coumadin (warfarin) therapy is an INR of 2.0-3.0. For high-risk patients (Mechanical Mitral Valve Prosthesis, etc.), the suggested prophylactic therapeutic range is an INR of 2.5-3.5. Blood BLOOD SPECIMEN / Unknown Venipuncture / Unknown 09/01/2021 12:01 AM CDT 09/01/2021 12:06 AM CDT Gabriele Riley MD LAB - COAGULATION OR DERABLES Performing Organization Address [facility] Co de Phone Number [address] [address], [place] [phone] * PHOSPHORUS BLOOD (08/31/2021 11:58 PM CDT) Pathologist [facility] Phosphorus 3.0 2.8 - 5.1 mg/dL 09/01/2021 12:32 AM CDT [facility] Blood BLOOD SPECIMEN / Unknown Venipuncture / Unknown 08/31/2021 11:58 PM CDT 09/01/2021 12:03 AM CDT Gabriele Riley MD LAB - CHEMISTRY ORDE ALLA Performing Organization Address City/[facility]/ZIP Co de Phone Number [address] [address], [place] [phone] * MAGNESIUM BLOOD (08/31/2021 11:58 PM CDT) Magnesium 1.7 1.6 - 2.6 mg/dL 09/01/2021 12:32 AM [facility] Blood BLOOD SPECIMEN / Unknown Venipuncture / Unknown 08/31/2021 11:58 PM CDT 09/01/2021 12:03 AM CDT Gabriele Riley MD LAB - CHEMISTRY MIGUEL GOLD [facility] [address] [place] [address], [facility] [phone] * (ABNORMAL) CBC W/O DIFFERENTIAL (08/31/2021 11:58 PM CDT) WBC 7.7 3.5 - 10.5 10? 3 /uL 09/01/2021 12:34 AM [facility] Comment:All CBC parameters h ave been checked. RBC 4.54 4.30 - 5.70 10? 6 /uL 09/01/2021 12:34 AM [facility] Hemoglobin 14.2 12.0 - 17.6 g/dL 09/01/2021 12:34 AM [facility] Hematocrit 40.6 35.2 - 51.7 % 09/01/2021 12:34 AM [facility] MCV 89.4 80.7 - 98.3 fL 09/01/2021 12:34 AM [facility] MCH 31.3 26.7 - 34.0 pg 09/01/2021 12:34 AM [facility] MCHC 35.0 30.8 - 35.9 g/dL 09/01/2021 12:34 AM [facility] Platelet Count 88(L) 150 - 400 10? 3 /uL 09/01/2021 12:34 AM [facility] RDW-SD 48.2 36.0 - 50.0 fL 09/01/2021 12:34 AM [facility] RDW-CV 14.8 11.2 - 14.8 % 09/01/2021 12:34 AM [facility] MPV 10.4 9.4 - 12.9 fL 09/01/2021 12:34 AM [facility] nRBC Absolute 0.00 0 10? 3 /uL 09/01/2021 12:34 AM [facility] nRBC Auto 0.0 0 /100 WBC 09/01/2021 12:34 AM [facility] Blood BLOOD SPECIMEN / Unknown Venipuncture / Unknown 08/31/2021 11:58 PM CDT 09/01/2021 12:06 AM T Gabriele Riley MD LAB - HEMATOLOGY ORD ERABLES [facility] [address] [place] [address], [facility] [phone] * (ABNORMAL) BASIC METABOLIC PANEL (CALCIUM TOTAL) (08/31/2021 11:58 PM T) BUN 12 7 - 26 mg/dL 09/01/2021 12:32 AM [facility] Creatinine 0.66(L) 0.71 - 1.16 mg/dL 09/01/2021 12:32 AM [facility] Sodium 143 136 - 145 mmol/L 09/01/2021 12:32 AM [facility] Potassium 3.9 3.5 - 4.5 mmol/L 09/01/2021 12:32 AM [facility] Chloride 110(H) 98 - 107 mmol/L 09/01/2021 12:32 AM [facility] CO2 22 22 - 29 mmol/L 09/01/2021 12:32 AM [facility] Glucose 123(H) 70 - 115 mg/dL 09/01/2021 12:32 AM [facility] Calcium 8.2(L) 8.4 - 10.2 mg/dL 09/01/2021 12:32 AM [facility] Anion Gap 15 8 - 18 09/01/2021 12:32 AM [facility] BUN/Creatinine Ratio 18 7 - 23 09/01/2021 12:32 AM [facility] Osmolality Calculated 297 270 - 300 mOsm/kg 09/01/2021 12:32 AM CDT [facility] eGFR by CKD-EPI >90 >=90 mL/min/1.7 3 m2 09/01/2021 12:32 AM CDT [facility] Blood BLOOD SPECIMEN / Unknown Venipuncture / Unknown 08/31/2021 11:58 PM CDT 09/01/2021 12:03 AM CDT Gabriele Riley MD LAB - CHEMISTRY MIGUEL GOLD [facility] [address] [place] [address], [facility] [phone] * XR ABDOMEN KUB PORTABLE (08/31/2021 9:07 PM CDT) Anatomical Region Laterality Modality Abdomen Radiographic Lynette ging 09/01/2021 11:4 0 AM CDT Narrative 09/01/2021 1:17 PM CDT EXAMINATION: XR ABDOMEN KUB PORTABLE HISTORY: R13.12: Oropharyngeal dysphagia COMPARISON: Portable KUB 08/30/2021. FINDINGS: Enteric tube is seen coursing below the diaphragm with tip terminating at the expected location of the gastric fundus. Report dictated by Jose R Bess M.D. (vice president [employer]). Dr. PRABHJOT Londono MD have personally reviewed and interpreted this examination/study. This report was electronically signed by PRABHJOT HERRERA MD ??on 09/01/2021 1:17 PM . Procedure Note Prabhjot Herrera MD - 09/01/2021 EXAMINATION: XR ABDOMEN KUB PORTABLE HISTORY: R13.12: Oropharyngeal dysphagia COMPARISON: Portable KUB 08/30/2021. FINDINGS: Enteric tube is seen coursing below the diaphragm with tip terminatingat the expected location of the gastric fundus. Report dictated by Jose R Bess M.D. (vice president [employer]). Dr. PRABHJOT Londono MD have personally reviewed and interpreted this examination/study. This report was electronically signed by PRABHJOT HERRERA MD on 09/01/2021 1:17 PM . Olegario Villagomez MD DIAGNOSTIC IMAGING ORDERABLES * (ABNORMAL) PHOSPHORUS BLOOD (08/31/2021 12:32 AM CDT) Pathologist [facility] Phosphorus 2.4(L) 2.8 - 5.1 mg/dL 08/31/2021 1:05 AM CDT [facility] Blood BLOOD SPECIMEN / Unknown Venipuncture / Unknown 08/31/2021 12:32 AM CDT 08/31/2021 12:35 AM CDT Gabriele Riley MD LAB - CHEMISTRY MIGUEL GOLD Performing Organization Address City/[facility]/ZIP Co de Phone Number [address] [address], [facility] [phone] * MAGNESIUM BLOOD (08/31/2021 12:32 AM CDT) Pathologist [facility] Magnesium 1.6 1.6 - 2.6 mg/dL 08/31/2021 1:05 AM T [facility] Blood BLOOD SPECIMEN / Unknown Venipuncture / Unknown 08/31/2021 12:32 AM CDT 08/31/2021 12:35 AM CDT Gabriele Rliey MD LAB - CHEMISTRY MIGUEL GOLD [address] [address], [facility] [phone] * (ABNORMAL) CBC W/O DIFFERENTIAL (08/31/2021 12:32 AM CDT)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 [facility] Olegario Villagomez MD LAB - CHEMISTRY ORD ERABLES [facility] [address] [place] [address], [facility] [phone] * (ABNORMAL) PT-INR [facility] (08/27/2021 12:23 AM [facility]) PT 19.0(H) 12.1 - 14.8 Seconds 08/27/2021 12:46 AM [facility] INR 1.6 See Comment 08/27/2021 12:46 AM [facility] Comment:The suggested therap eutic range for standard coumadin (warfarin) therapy is an INR of 2.0-3.0. For high-risk patients (Mechanical Mitral Valve Prosthesis, etc.), the suggested prophylactic therapeutic range is an INR of 2.5-3.5. Blood BLOOD SPECIMEN / Unknown Venipuncture / Unknown 08/27/2021 12:23 AM [facility] 08/27/2021 12:27 AM [facility] Gabriele Riley MD LAB - COAGULATION OR DERABLES Performing Organization Address [facility]/ZIP Co de Phone Number [address] [address], [place] [phone] * (ABNORMAL) PHOSPHORUS BLOOD (08/27/2021 12:23 AM [facility]) Phosphorus 2.7(L) 2.8 - 5.1 mg/dL 08/27/2021 12:54 AM [facility] Blood BLOOD SPECIMEN / Unknown Venipuncture / Unknown 08/27/2021 12:23 AM [facility] 08/27/2021 12:27 AM [facility] Gabriele Riley MD LAB - CHEMISTRY MIGUEL GOLD Performing Organization Address [facility]/ZIP Co de Phone Number [address] [address], [place] [phone] * MAGNESIUM BLOOD (08/27/2021 12:23 AM [facility]) Magnesium 2.3 1.6 - 2.6 mg/dL 08/27/2021 12:54 AM [facility] Blood BLOOD SPECIMEN / Unknown Venipuncture / Unknown 08/27/2021 12:23 AM [facility] 08/27/2021 12:27 AM [facility] Gabriele Riley MD LAB - CHEMISTRY MIGUEL GOLD Performing Organization Address [facility]/ZIP Co de Phone Number [address] [address], [place] [phone] * (ABNORMAL) CBC W/O DIFFERENTIAL (08/27/2021 12:23 AM [facility]) WBC 8.9 3.5 - 10.5 10? 3 /uL 08/27/2021 1:28 AM [facility] RBC 4.32 4.30 - 5.70 10? 6 /uL 08/27/2021 1:28 AM [facility] Hemoglobin 13.6 12.0 - 17.6 g/dL 08/27/2021 1:28 AM [facility] Hematocrit 39.3 35.2 - 51.7 % 08/27/2021 1:28 AM [facility] MCV 91.0 80.7 - 98.3 fL 08/27/2021 1:28 AM [facility] MCH 31.5 26.7 - 34.0 pg 08/27/2021 1:28 AM [facility] MCHC 34.6 30.8 - 35.9 g/dL 08/27/2021 1:28 AM [facility] Platelet Count 74(L) 150 - 400 10? 3 /uL 08/27/2021 1:28 AM [facility] Comment:Checked by periphera l smear. RDW-SD 49.9 36.0 - 50.0 fL 08/27/2021 1:28 AM [facility] RDW-CV 15.0(H) 11.2 - 14.8 % 08/27/2021 1:28 AM [facility] MPV 9.9 9.4 - 12.9 fL 08/27/2021 1:28 AM [facility] nRBC Absolute 0.00 0 10? 3 /uL 08/27/2021 1:28 AM [facility] nRBC Auto 0.0 0 /100 WBC 08/27/2021 1:28 AM [facility] Blood BLOOD SPECIMEN / Unknown Venipuncture / Unknown 08/27/2021 12:23 AM [facility] 08/27/2021 12:27 AM [facility] Gabriele Riley MD LAB - HEMATOLOGY ORD ERABLES [facility] [address] [place] [address], [facility] [phone] * (ABNORMAL) BASIC METABOLIC PANEL (CALCIUM TOTAL) (08/27/2021 12:23 AM [facility]) BUN 18 7 - 26 mg/dL 08/27/2021 12:54 AM [facility] Creatinine 0.62(L) 0.71 - 1.16 mg/dL 08/27/2021 12:54 AM [facility] Sodium 142 136 - 145 mmol/L 08/27/2021 12:54 AM [facility] Potassium 3.9 3.5 - 4.5 mmol/L 08/27/2021 12:54 AM [facility] Chloride 110(H) 98 - 107 mmol/L 08/27/2021 12:54 AM [facility] CO2 24 22 - 29 mmol/L 08/27/2021 12:54 AM [facility] Glucose 118(H) 70 - 115 mg/dL 08/27/2021 12:54 AM [facility] Calcium 8.2(L) 8.4 - 10.2 mg/dL 08/27/2021 12:54 AM [facility] Anion Gap 12 8 - 18 08/27/2021 12:54 AM [facility] BUN/Creatinine Ratio 29(H) 7 - 23 08/27/2021 12:54 AM [facility] Osmolality Calculated 297 270 - 300 mOsm/kg 08/27/2021 12:54 AM [facility] eGFR by CKD-EPI >90 >=90 mL/min/1.7 3 m2 08/27/2021 12:54 AM [facility] Blood BLOOD SPECIMEN / Unknown Venipuncture / Unknown 08/27/2021 12:23 AM [facility] 08/27/2021 12:27 AM [facility] Gabriele Riley MD LAB - CHEMISTRY MIGUEL GOLD [facility] Organization Address City/State/ZIP Co de Phone Number [facility] [address] [place] [address], [facility] [phone] * HIV-1 HIV-2 ANTIBODY + HIV P24 AG PANEL (08/27/2021 12:23 AM [facility]) HIV Antigen/Antibod y 1 & 2 Non-reacti ve Non-react maureen 08/27/2021 1:38 AM [facility] Comment:No Laboratory eviden ce of HIV infection. Blood BLOOD SPECIMEN / Unknown Venipuncture / Unknown 08/27/2021 12:23 AM [facility] 08/27/2021 12:27 AM [facility] Susan Reynaga MD LAB - CHEMISTR Y ORDERABLES [facility] [address] [place] [address], [facility] [phone] * MRI BRAIN WWO CONTRAST (08/26/2021 11:00 PM [facility]) Anatomical Region Laterality Modality Head Magnetic Resonan ce 08/27/2021 5:07 PM [facility] Impressions 08/27/2021 5:26 PM [facility] IMPRESSION: Since prior head CT from 08/24/2021: 1.Redemonstration of evolving early subacute hematoma involving the left temporoparietal region with mild surrounding vasogenic edema and mild local mass effect as outlined. 2.No abnormal enhancement to suggest underlying enhancing mass. 3.Findings compatible with hepatic encephalopathy. This report was electronically signed by ALY MATHEWS ??on 08/27/2021 5:26 PM . Narrative 08/27/2021 5:26 PM [facility] MRI BRAIN WWO CONTRAST DATE: 08/26/2021 11:03 [...] shape, and morphology. Redemonstration of 4 mm [id number] midline shift is again seen at the [...] cervical spine appear normal. Procedure Note Aly Mathews MD - 08/27/2021 MRI BRAIN WWO CONTRAST [...] size, shape, and morphology. Redemonstration of 4 xrojih-[id number]-[id number] midline shift is again seen at the [...] This report was electronically signed by ALY MATHEWS on08/27/2021 5:26 PM . Gabriele Riley MD MR ORDERABLES * CARDIAC EKG ORDER (08/26/2021 2:11 PM [facility]) Narrative 08/26/2021 2:11 PM [facility] Ordered by an unspecified provider. Scanned Document CARDIAC SERVICES ORD ERABLES * US ABDOMEN DOPPLER ONLY COMP (08/26/2021 12:16 PM [facility]) Anatomical Region Laterality Modality Abdomen Ultrasound 08/26/2021 1:18 PM [facility] Impressions 08/26/2021 2:31 PM [facility] IMPRESSION: 1.Hepatic cirrhosis with sequelae of portal hypertension; there is reversal of normal portal flow directionality. 2.Cholelithiasis with trace pericholecystic fluid. No further sonographic evidence of acute cholecystitis. 3.Nonvisualization of the hepatic veins. 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 4.Trace perihepatic fluid. Report dictated by Axel Weaver MD (vice president [employer]). This report was approved ??by Axel Weaver ?? on 08/26/2021 1:57 PM . I, Dr. TAE PICKARD have personally reviewed and interpreted this examination/study. This report was electronically signed by TAE PICKARD ??on 08/26/2021 2:31 PM . Narrative 08/26/2021 2:31 PM [facility] EXAMINATION: 1. Limited abdominal sonogram 2. Color [...] fluid. Report dictated by Axel Weaver MD (vice president [employer]). This report was approved by Axel Weaver on 08/26/2021 1:57 PM . I, Dr. TAE PICKARD have personally reviewed and interpreted this examination/study. This report was electronically signed by TAE PICKARD on 08/26/2021 2:31PM . Gabriele Riley MD US ORDERABLES * US ABDOMEN LIMITED (08/26/2021 12:16 PM [facility]) Anatomical Region Laterality Modality Abdomen Ultrasound 08/26/2021 1:18 PM [facility] Impressions 08/26/2021 2:31 PM [facility] IMPRESSION: 1.Hepatic cirrhosis with sequelae of portal hypertension; there is reversal of normal portal flow directionality. 2.Cholelithiasis with trace pericholecystic fluid. No further sonographic evidence of acute cholecystitis. 3.Nonvisualization of the hepatic veins. 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 4.Trace perihepatic fluid. Report dictated by Axel Weaver MD (vice president [employer]). This report was approved ??by Axel Weaver ?? on 08/26/2021 1:57 PM . I, Dr. TAE PICKARD have personally reviewed and interpreted this examination/study. This report was electronically signed by TAE PICKARD ??on 08/26/2021 2:31 PM . Narrative 08/26/2021 2:31 PM [facility] EXAMINATION: 1. Limited abdominal sonogram 2. Color [...] fluid. Report dictated by Axel Weaver MD (vice president [employer]). This report was approved by Axel Weaver on 08/26/2021 1:[address] TAE Londono have personally reviewed and interpreted this examination/study. This report was electronically signed by TAE PICKARD on 08/26/2021 2:31PM . Gabriele Riley MD ORDERABLES * XR CHEST 1VW PORTABLE (08/26/2021 9:20 AM [facility]) Anatomical Region Laterality Modality Chest Radiographic Lynette ging 08/26/2021 1:51 PM [facility] Impressions 08/26/2021 2:04 PM [facility] FINDINGS/IMPRESSION: Endotracheal tube terminates in the midthoracic trachea. Feeding tube courses below the diaphragm, the tip is off the field of the view. The patient is rotated to the right. There are low lung volumes with bronchovascular crowding. No focal consolidation, pleural effusion, or pneumothorax is seen. The cardiomediastinal silhouette is normal. Report drafted by Octavio Shaffer MD (vice president commercial [employer]) Dr. MELINA Londono have personally reviewed and interpreted this examination/study. This report was electronically signed by MELINA GAVIRIA ??on 08/26/2021 2:04 PM . Narrative 08/26/2021 2:04 PM [facility] EXAMINATION: XR CHEST 1VW PORTABLE HISTORY: D72.829: Leukocytosis, unspecified type COMPARISON: Chest x-ray from 08/24/2021. Procedure Note Melina Gaviria MD - 08/26/2021 EXAMINATION: XR CHEST 1VW PORTABLE HISTORY: D72.829: Leukocytosis, unspecified type COMPARISON: Chest x-ray from 08/24/2021. FINDINGS/IMPRESSION: Endotracheal tube terminates in the midthoracic trachea. Feeding tube courses below the diaphragm, the tip is off the field ofthe view. The patient is rotated to the right. There are low lung volumes with bronchovascular crowding. No focal consolidation, pleural effusion, or pneumothorax is seen. The cardiomediastinal silhouette is normal. Report drafted by Octavio Shaffer MD (vice president commercial [employer]) Dr. MELINA Londono have personally reviewed and interpreted this examination/study. This report was electronically signed by MELINA GAVIRIA on 08/26/2021 2:04 PM . Gabriele Riley MD DIAGNOSTIC IMAGING O RDERABLES * (ABNORMAL) GLUCOSE - POINT OF CARE (08/26/2021 8:46 AM [facility]) Glucose WB/POC 118(H) 70 - 115 mg/dL 08/26/2021 8:50 AM [facility] Specimen Type Venous 08/26/2021 8:50 AM [facility] Blood BLOOD SPECIMEN / Unknown 08/26/2021 8:46 AM [facility] 08/26/2021 8:50 AM [facility] Gabriele Riley MD LAB - POINT OF CARE ORDERABLES [facility] [address] [place] [address], [facility] [phone] * GLUCOSE - POINT OF CARE (08/26/2021 4:35 AM [facility]) Glucose WB/POC 108 70 - 115 mg/dL 08/26/2021 4:40 AM [facility] Specimen Type Arterial/C apillary 08/26/2021 4:40 AM [facility] Blood BLOOD SPECIMEN / Unknown 08/26/2021 4:35 AM [facility] 08/26/2021 4:40 AM [facility] Gabriele Riley MD LAB - POINT OF CARE ORDERABLES [facility] [address] [place] [address], [place] [phone] * (ABNORMAL) GLUCOSE - POINT OF CARE (08/26/2021 4:01 AM [facility]) Glucose WB/POC 125(H) 70 - 115 mg/dL 08/26/2021 4:01 AM [facility] Specimen Type Cap Fingerstick 2021 4:01 AM [facility] Blood BLOOD SPECIMEN / Unknown 08/26/2021 4:01 AM [facility] 08/26/2021 4:01 AM [facility] Gabriele Riley MD LAB - POINT OF CARE ORDERABLES [facility] [address] [place] [address], [place] [phone] * (ABNORMAL) PT-INR [facility] (08/26/2021 12:32 AM [facility]) PT 18.0(H) 12.1 - 14.8 Seconds 08/26/2021 1:32 AM [facility] INR 1.5 See Comment 08/26/2021 1:32 AM [facility] Comment:The suggested therap eutic range for standard coumadin (warfarin) therapy is an INR of 2.0-3.0. For high-risk patients (Mechanical Mitral Valve Prosthesis, etc.), the suggested prophylactic therapeutic range is an INR of 2.5-3.5. Blood BLOOD SPECIMEN / Unknown Venipuncture / Unknown 08/26/2021 12:32 AM [facility] 08/26/2021 12:46 AM [facility] Gabriele Riley MD LAB - COAGULATION OR DERABLES Performing Organization Address City/[facility]/ZIP Co de Phone Number [address] [address], [place] [phone] * PHOSPHORUS BLOOD (08/26/2021 12:32 AM [facility]) Phosphorus 4.1 2.8 - 5.1 mg/dL 08/26/2021 1:20 AM [facility] Blood BLOOD SPECIMEN / Unknown Venipuncture / Unknown 08/26/2021 12:32 AM [facility] 08/26/2021 12:55 AM [facility] Gabriele Riley MD LAB - CHEMISTRY MIGUEL GOLD Performing Organization Address [facility]/ZIP Co de Phone Number [address] [address], [place] [phone] * MAGNESIUM BLOOD (08/26/2021 12:32 AM [facility]) Magnesium 2.2 1.6 - 2.6 mg/dL 08/26/2021 1:20 AM [facility] Blood BLOOD SPECIMEN / Unknown Venipuncture / Unknown 08/26/2021 12:32 AM [facility] 08/26/2021 12:55 AM [facility] Gabriele Riley MD LAB - CHEMISTRY MIGUEL GOLD [address] [address], [place] [phone] * (ABNORMAL) CBC W/O DIFFERENTIAL (08/26/2021 12:32 AM [facility]) WBC 12.8(H) 3.5 - 10.5 10? 3 /uL 08/26/2021 1:10 AM [facility] RBC 4.58 4.30 - 5.70 10? 6 /uL 08/26/2021 1:10 AM [facility] Hemoglobin 14.4 12.0 - 17.6 g/dL 08/26/2021 1:10 AM [facility] Hematocrit 40.9 35.2 - 51.7 % 08/26/2021 1:10 AM [facility] MCV 89.3 80.7 - 98.3 fL 08/26/2021 1:10 AM [facility] MCH 31.4 26.7 - 34.0 pg 08/26/2021 1:10 AM [facility] MCHC 35.2 30.8 - 35.9 g/dL 08/26/2021 1:10 AM [facility] Platelet Count 121(L) 150 - 400 10? 3 /uL 08/26/2021 1:10 AM [facility] RDW-SD 49.1 36.0 - 50.0 fL 08/26/2021 1:10 AM [facility] RDW-CV 15.2(H) 11.2 - 14.8 % 08/26/2021 1:10 AM [facility] MPV 10.4 9.4 - 12.9 fL 08/26/2021 1:10 AM [facility] nRBC Absolute 0.00 0 10? 3 /uL 08/26/2021 1:10 AM [facility] nRBC Auto 0.0 0 /100 WBC 08/26/2021 1:10 AM [facility] Blood BLOOD SPECIMEN / Unknown Venipuncture / Unknown 08/26/2021 12:32 AM [facility] 08/26/2021 12:55 AM [facility] Gabriele Riley MD LAB - HEMATOLOGY ORD ERABLES [facility] [address] [place] [address], [facility] [phone] * (ABNORMAL) BASIC METABOLIC PANEL (CALCIUM TOTAL) (08/26/2021 12:32 AM [facility]) BUN 18 7 - 26 mg/dL 08/26/2021 1:20 AM [facility] Creatinine 0.74 0.71 - 1.16 mg/dL 08/26/2021 1:20 AM [facility] Sodium 138 136 - 145 mmol/L 08/26/2021 1:20 AM [facility] Potassium 4.2 3.5 - 4.5 mmol/L 08/26/2021 1:20 AM [facility] Chloride 109(H) 98 - 107 mmol/L 08/26/2021 1:20 AM [facility] CO2 23 22 - 29 mmol/L 08/26/2021 1:20 AM [facility] Glucose 126(H) 70 - 115 mg/dL 08/26/2021 1:20 AM [facility] Calcium 8.4 8.4 - 10.2 mg/dL 08/26/2021 1:20 AM [facility] Anion Gap 10 8 - 18 08/26/2021 1:20 AM [facility] BUN/Creatinine Ratio 24(H) 7 - 23 08/26/2021 1:20 AM [facility] Osmolality Calculated 289 270 - 300 mOsm/kg 08/26/2021 1:20 AM [facility] eGFR by CKD-EPI >90 >=90 mL/min/1.7 3 m2 08/26/2021 1:20 AM [facility] Blood BLOOD SPECIMEN / Unknown Venipuncture / Unknown 08/26/2021 12:32 AM [facility] 08/26/2021 12:55 AM [facility] Gabriele Riley MD LAB - CHEMISTRY MIGUEL GOLD [facility] Organization Address City/State/[facility] Co de Phone Number [facility] [address] [place] [address] [phone] * HEMOGLOBIN A1C (08/26/2021 12:32 AM [facility]) Hemoglobin A1c 5.1 <=5.6 % 08/26/2021 10:53 AM [facility] Estimated Average Glucose 100 mg/dL 08/26/2021 10:53 AM [facility] Comment: HbA1c Interpretation: Normal : < 5.7% Pre-diabetes: 5.7-6.4% Diabetes: Equal to or greater than 6.5% Test results diagnostic of diabetes should be repeated for confirmation. Treatment target values recommended by ADA and other clinical organizations should be used to evaluate metabolic control in patients. Reference: [place] [employer], Standards of Care in Diabetes -2020 In patients 70 years and older consider HbA1c target range of 7.0-7.5% (Reference: Yusef Marquis et al. SOURAVDA. 2012) The [employer] assay for the measurement of HbA1c is a National Glycohemoglobin Standardization Program (NGSP) certified method. Blood BLOOD SPECIMEN / Unknown Venipuncture / Unknown 08/26/2021 12:32 AM [facility] 08/26/2021 12:55 AM [facility] Gabriele Riley MD LAB - CHEMISTRY [facility] [address] [address], [place] [phone] * (ABNORMAL) GLUCOSE - POINT OF CARE (08/25/2021 11:38 PM [facility]) Glucose WB/POC 124(H) 70 - 115 mg/dL 08/26/2021 12:30 AM [facility] Specimen Type Cap Fingerstick 2021 12:30 AM [facility] Blood BLOOD SPECIMEN / Unknown 08/25/2021 11:38 PM [facility] 08/26/2021 12:30 AM [facility] Gabriele Riley MD LAB - POINT OF CARE ORDERABLES [address] [address], [place] [phone] * (ABNORMAL) GLUCOSE - POINT OF CARE (08/25/2021 7:49 PM [facility]) Glucose WB/POC 132(H) 70 - 115 mg/dL 08/25/2021 7:50 PM [facility] Specimen Type Cap Fingerstick 2021 7:50 PM [facility] Blood BLOOD SPECIMEN / Unknown 08/25/2021 7:49 PM [facility] 08/25/2021 7:50 PM [facility] Gabriele Riley MD LAB - POINT OF CARE ORDERABLES [facility] [address] [place] [address], [facility] [phone] * ECHO COMPLETE W BUBBLE STUDY (08/25/2021 1:56 PM [facility]) Anatomical Region Laterality Modality Chest Echo 08/25/2021 1:22 PM [facility] Narrative Procedure Note Jose R Salcedo MD - 08/26/2021 Gabriele Riley MD ECHOCARDIOGRAPHY RAD IANT * ALCOHOL ETHYL BLOOD (08/25/2021 12:09 PM [facility]) Ethanol (mg/dL) <10 <10 mg/dL 12:48 PM [facility] Ethanol Calculated (g/dL) <0.010 <0.010 g/dL 08/25/2021 12:48 PM [facility] Blood BLOOD SPECIMEN / Unknown Venipuncture / Unknown 08/25/2021 12:09 PM [facility] 08/25/2021 12:25 PM [facility] Narrative [facility] - 08/25/2021 12:48 PM [facility] Ethanol Interp <10: None Detected. Depression of SALESPERSON NECKTIES: >100 mg/dl Potentially Critical: >250 mg/dl Potentially Fatal >400 mg/dl Ethanol in the patient's blood will contribute to the osmolar gap. Ethanol's contribution to the osmolar gap can be estimated by dividing the concentration of ethanol in mg/dL by 4.6. This test is for clinical use only and does not equal a AKUA for legal purposes. Gabriele Riley MD LAB - CHEMISTRY ORDE RABLES [facility] [address] [place] [address], [place] [phone] * XR ABDOMEN KUB PORTABLE (08/25/2021 11:04 AM [facility]) Anatomical Region Laterality Modality Abdomen Radiographic Lynette ging 08/25/2021 11:0 5 AM [facility] Impressions 08/25/2021 11:24 AM [facility] FINDINGS/IMPRESSION: Enteric tube is seen coursing below the diaphragm with tip terminating in the expected location of the gastric fundus. Report dictated by Jose R Bess M.D. (vice president [employer]). I, Dr. REMINGTON ROGERS have personally reviewed and interpreted this examination/study. This report was electronically signed by REMINGTON ROGERS ??on 08/25/2021 11:24 AM . Narrative 08/25/2021 11:24 AM [facility] EXAMINATION: XR ABDOMEN KUB PORTABLE HISTORY: R13.10: Dysphagia, unspecified type COMPARISON: Portable KUB 10/07/2018 Procedure Note Remington Rogers MD - 08/25/2021 EXAMINATION: XR ABDOMEN KUB PORTABLE HISTORY: R13.10: Dysphagia, unspecified type COMPARISON: Portable KUB 10/07/2018 FINDINGS/IMPRESSION: Enteric tube is seen coursing below the diaphragm with tip terminatingin the expected location of the gastric fundus. Report dictated by Jose R Bess M.D. (vice president [employer]). I, Dr. REMINGTON ROGERS have personally reviewed and interpreted this examination/study. This report was electronically signed by REMINGTON ROGERS on 1:24 AM . Gabriele Riley MD DIAGNOSTIC IMAGING O RDERABLES * (ABNORMAL) PT-INR [facility] (08/25/2021 4:20 AM [facility]) PT 18.3(H) 12.1 - 14.8 Seconds 08/25/2021 5:03 AM [facility] INR 1.5 See Comment 08/25/2021 5:03 AM [facility] Comment:The suggested therap eutic range for standard coumadin (warfarin) therapy is an INR of 2.0-3.0. For high-risk patients (Mechanical Mitral Valve Prosthesis, etc.), the suggested prophylactic therapeutic range is an INR of 2.5-3.5. Blood BLOOD SPECIMEN / Unknown Venipuncture / Unknown 08/25/2021 4:20 AM [facility] 08/25/2021 4:40 AM [facility] Gabriele Riley MD LAB - COAGULATION OR DERABLES [facility] [address] [place] [address], [facility] [phone] * (ABNORMAL) BASIC METABOLIC PANEL (CALCIUM TOTAL) (08/25/2021 4:20 AM [facility]) BUN 11 7 - 26 mg/dL 08/25/2021 5:18 AM [facility] Creatinine 0.62(L) 0.71 - 1.16 mg/dL 08/25/2021 5:18 AM [facility] Sodium 137 136 - 145 mmol/L 08/25/2021 5:18 AM [facility] Potassium 3.8 3.5 - 4.5 mmol/L 08/25/2021 5:18 AM [facility] Chloride 106 98 - 107 mmol/L 08/25/2021 5:18 AM [facility] CO2 20(L) 22 - 29 mmol/L 08/25/2021 5:18 AM [facility] Glucose 162(H) 70 - 115 mg/dL 08/25/2021 5:18 AM [facility] Calcium 9.1 8.4 - 10.2 mg/dL 08/25/2021 5:18 AM [facility] Anion Gap 15 8 - 18 08/25/2021 5:18 AM [facility] BUN/Creatinine Ratio 18 7 - 23 08/25/2021 5:18 AM [facility] Osmolality Calculated 287 270 - 300 mOsm/kg 08/25/2021 5:18 AM [facility] eGFR by CKD-EPI >90 >=90 mL/min/1.7 3 m2 08/25/2021 5:18 AM [facility] Blood BLOOD SPECIMEN / Unknown Venipuncture / Unknown 08/25/2021 4:20 AM [facility] 08/25/2021 4:52 AM [facility] Gabriele Riley MD LAB - CHEMISTRY ORDE RABLES [facility] [address] [place] [address], [facility] [phone] * (ABNORMAL) CBC W/O DIFFERENTIAL (08/25/2021 4:20 AM [facility]) WBC 3.7 3.5 - 10.5 10? 3 /uL 08/25/2021 5:16 AM [facility] RBC 5.01 4.30 - 5.70 10? 6 /uL 08/25/2021 5:16 AM [facility] Hemoglobin 15.8 12.0 - 17.6 g/dL 08/25/2021 5:16 AM [facility] Hematocrit 43.7 35.2 - 51.7 % 08/25/2021 5:16 AM [facility] MCV 87.2 80.7 - 98.3 fL 08/25/2021 5:16 AM [facility] MCH 31.5 26.7 - 34.0 pg 08/25/2021 5:16 AM [facility] MCHC 36.2(H) 30.8 - 35.9 g/dL 08/25/2021 5:16 AM [facility] Platelet Count 88(L) 150 - 400 10? 3 /uL 08/25/2021 5:16 AM [facility] RDW-SD 46.4 36.0 - 50.0 fL 08/25/2021 5:16 AM [facility] RDW-CV 14.6 11.2 - 14.8 % 08/25/2021 5:16 AM [facility] MPV 10.2 9.4 - 12.9 fL 08/25/2021 5:16 AM [facility] nRBC Absolute 0.00 0 10? 3 /uL 08/25/2021 5:16 AM [facility] nRBC Auto 0.0 0 /100 WBC 08/25/2021 5:16 AM [facility] Blood BLOOD SPECIMEN / Unknown Venipuncture / Unknown 08/25/2021 4:20 AM [facility] 08/25/2021 4:37 AM [facility] Gabriele Riley MD LAB - HEMATOLOGY ORD ERABLES Performing Organization Address City/[facility]/ZIP Co de Phone Number [facility] [address] [place] [phone], [facility] [phone] * TROPONIN I (08/25/2021 4:20 AM [facility]) Troponin I <0.010 <0.032 ng/mL 08/25/2021 5:23 AM [facility] Blood BLOOD SPECIMEN / Unknown Venipuncture / Unknown 08/25/2021 4:20 AM [facility] 08/25/2021 4:37 AM [facility] Thien Augustin MD LAB - CHEMISTRY MIGUEL GOLD Performing Organization Address [facility]/ZIP Co de Phone Number [address] [address], [facility] [phone] * CT HEAD WO CONTRAST (08/25/2021 2:23 AM [facility]) Anatomical Region Laterality Modality Head Computed Tomogra phy 08/25/2021 2:34 AM [facility] Impressions 08/25/2021 9:44 AM [facility] IMPRESSION: 1. Grossly unchanged large intraparenchymal hematoma centered in the left parietotemporal lobe, with moderate mass effect upon the adjacent structures and unchanged 5 mm left to right midline shift. Report dictated by Meena Wall MD (vice president [employer]). I, Dr. RADHA TEJADA M.D. have personally reviewed and interpreted this examination/study. This report was electronically signed by RADHA TEJADA M.D. ??on 08/25/2021 9:44 AM . Narrative 08/25/2021 9:44 AM [facility] EXAMINATION: Computed tomography (CT) of the head [...] rightward deviation of nasal septum. Procedure Note Radha Tejada MD - 08/25/2021 EXAMINATION: Computed tomography [...] shift. Report dictated by Meena Wall MD (vice president [employer]). I, Dr. RADHA TEJADA M.D. have personally reviewed and interpreted this examination/study. This report was electronically signed by RADHA TEJADA M.D. on 08/25/2021 9:44 AM . Thien Augustin MD CT ORDERABLES * (ABNORMAL) BLOOD GASES ART + COOX PANEL (08/24/2021 10:02 PM [facility]) pH Arterial 7.50(H) 7.35 - 7.45 pH 08/24/2021 10:15 PM [facility] pO2 Arterial 193(H) 80 - 100 mmHg 08/24/2021 10:15 PM [facility] pCO2 Arterial 27(L) 35 - 45 mmHg 10:15 PM [facility] HCO3 Arterial 21 20 - 30 mmol/l 08/24/2021 10:15 PM [facility] BE Arterial -0.7 -2.0 - 2.0 mmol/L 08/24/2021 10:15 PM [facility] Oxyhemoglobin Arterial 97.7 % 08/24/2021 10:15 PM [facility] Dexoyhemoglobin (HHB) % 0.0 % 08/24/2021 10:15 PM [facility] Methemoglobin 1.0 0.0 - 2.0 % 08/24/2021 10:15 PM [facility] Carboxyhemoglobin 1.3 0.0 - 2.0 % 2021 10:15 PM [facility] O2 Content Arterial 19.6 Interpret within clinical context mg/dL 08/24/2021 10:15 PM [facility] Hemoglobin by COOX 14.0 12.0 - 17.6 g/dL 08/24/2021 10:15 PM [facility] O2 Saturation Arterial 100 90 -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 request must be documented in the MAR. $ Given 09/08/2021 1:38 PM CDT 500 m g $ Given 09/08/2021 6:13 AM CDT 500 mg amLODIPine (Norvasc) tablet 10 mg 10 mg, Oral, DAILY, 1 dose, First dose on 09/03/21 at 2115 $ Given 09/03/2021 9:15 PM CDT 10 mg artificial tears ophthalmic ointment Each Eye, EVERY 8 HOURS, First dose on Sun08/24/21 at 2200, Until Discontinued $ Given 09/01/2021 1:49 PM CDT $ Given 09/01/2021 5:08 AM CDT $ Given 08/31/2021 9:19 PM CDT chlorhexidine (Peridex) 0.12 % oral solution 15 mL 15 mL, Mouth/Throat, 2 TIMES DAILY, First dose on Sun08/24/21 at 2100, Until Discontinued, Swab oral mucosa for 30 seconds. Do not brush teeth immediately after use. . WASTE DISPOSAL INSTRUCTIONS: Black Bin Disposal required. $ Given 08/31/2021 8:16 AM CDT 15 mL $ Given 08/30/2021 10:13 PM CDT 15 mL $ Given 08/30/2021 9:22 AM CDT 15 mL dexmedeTOMIDine (Precedex) 400 mcg in 100 mL NS infusion premix 0-1.5 mcg/kg/hr ? 71.9 kg (0-26.9625 mL/hr, rounded to 0-26.96 mL/hr), Intravenous, CONTINUOUS, Starting on Sun08/26/21 at 1015, Until Sun09/02/21 at 0701, Above RASS goal: Assess and treat pain first if CPOT greater than 2. If agitation persists Increase rate per order. At RASS goal and no change in 4 hours: Decrease rate per order. Below RASS goal (unarousable): Hold infusion until at goal RASS then restart at 50% previous rate. If significant hemodynamic changes notify physician for instructions. Notify physician for inability to reach goals despite maximal dosage. Note: The CPOT goal should be achieved first with the use of the ordered analgesic medication prior to targeting RASS goal with the sedative., Titration Parameters: Standard Parameters, Indication: Sedation, Initiate infusion at: 0.2 mcg/kg/hr, Titrate infusion by: 0.1 mcg/kg/hr, Titrate every: 30 minutes, Notify physician if: Unachievable RASS goal despite max dose, Titration Priority: 2nd Rate Change 09/01/2021 10:13 AM CDT 1.4 mcg/kg/hr 25.17 mL/hr $ New Bag/Syringe 09/01/2021 7:56 AM CDT 1.5 mcg/kg/hr 26. 96 mL/hr $ New Bag/Syringe 09/01/2021 4:19 AM CDT 1.5 mcg/kg/hr 26. 96 mL/hr famotidine (Pepcid) tablet 20 mg 20 mg, Enteral Tube, 2 TIMES DAILY, First dose on Sun08/26/21 at 2100, Until Discontinued $ Given 08/31/2021 8:16 AM CDT 20 mg NG Tube $ Given 08/30/2021 10:13 PM CDT 20 mg N G Tube $ Given 08/30/2021 9:21 AM CDT 20 mg OG Tube gadobutrol (Gadavist) injection Intravenous, CONTRAST ONCE, Starting on Sun08/26/21 at 2234, Until 08/27/21 at 0712 $ Given - Contrast 08/26/2021 11:03 PM [facility] 7 mL haloperidol (Haldol) tablet 5 mg 5 mg, Oral, EVERY 6 HOURS PRN, Agitation, Psychosis, Starting on Sun09/04/21 at 0749, Until Sun09/13/21 at 2018 $ Given 09/13/2021 10:57 AM CDT 5 mg haloperidol lactate (Haldol) injection 5 mg 5 mg, Intramuscular, ONCE, 1 dose, On Sun08/30/21 at 1400 $ Given 08/30/2021 1:44 PM CDT 5 mg Left Vastus Laterali s haloperidol lactate (Haldol) injection 5 mg 5 mg, Intramuscular, ONCE, 1 dose, On Sun09/01/21 at 0245 $ Given 09/01/2021 2:33 AM CDT 5 mg Left Ventrogluteal haloperidol lactate (Haldol) injection 5 mg 5 mg, Intramuscular, EVERY 6 HOURS PRN, Agitation, Psychosis, Starting on Sun09/04/21 at 0749, Until Sun09/13/21 at 2018, If oral route unavailable $ Given 09/06/2021 6:55 PM CDT 5 mg Right Deltoid $ Given 09/04/2021 1:08 PM CDT 5 mg Le ft Deltoid $ Given 09/04/2021 7:59 AM CDT 5 mg Ri ght Deltoid haloperidol lactate (Haldol) injection ADS Med 1 dose, Starting on Sun08/30/21 at 1322, Until Sun08/30/21 at 1344, Created by cabinet override heparin injection 5,000 Units 5,000 Units, Subcutaneous, EVERY 8 HOURS, First dose on Sun08/26/21 at 1400, Until Discontinued $ Given 09/13/2021 2:51 PM CDT 5,000 Units Abd Right Lower Quadrant $ Given 09/13/2021 5:45 AM CDT 5,000 Units A bd Left Upper Quadrant $ Given 09/12/2021 10:02 PM CDT 5,000 Units Abd Right Lower Quadrant iopamidol (Isovue 370) 76 % contrast Intravenous, CONTRAST ONCE, Starting on Sun08/24/21 at 1907, Until Sun08/25/21 at 1549 $ Given - Contrast 08/24/2021 7:10 PM [facility] 100 mL lacosamide (Vimpat) tablet 100 mg 100 mg, Oral, 2 TIMES DAILY, First dose on Sun09/03/21 at 1130, Until Discontinued $ Given 09/13/2021 9:09 AM CDT 100 mg $ Given 09/12/2021 10:02 PM CDT 100 mg $ Given 09/12/2021 8:56 AM CDT 100 mg lactulose (Chronulac) solution 10 g 10 g, Oral, 2 TIMES DAILY, First dose (after last modification) on Sun09/09/21 at 2100, Until Discontinued $ Given 09/13/2021 9:10 AM CDT 10 g $ Given 09/12/2021 10:01 PM CDT 10 g $ Given 09/12/2021 8:56 AM CDT 10 g lactulose (Chronulac) solution 20 g 20 g, Enteral Tube, 3 TIMES DAILY, First dose on Sun08/25/21 at 1500, Until Discontinued $ Given 08/31/2021 8:16 AM CDT 20 g NG Tube $ Given 08/30/2021 10:14 PM CDT 20 g N G Tube $ Given 08/30/2021 1:35 PM CDT 20 g NG Tube lactulose (Chronulac) solution 20 g 20 g, Oral, 3 TIMES DAILY PRN, titrate to 1 to two bowel movements per day, Starting on Sun09/01/21 at 1458, Until Sun09/09/21 at 1006 $ Given 09/06/2021 6:55 PM CDT 20 g levETIRAcetam (Keppra) 2,750 mg in 0.9% NaCl IV 277.5 mL IVPB 2,750 mg, at 555 mL/hr, Intravenous, ONCE, 1 dose, On Sun08/24/21 at 1915 $ New Bag/Syringe 08/24/2021 8:03 PM [facility] 2,750 mg 555 mL/hr levETIRAcetam (Keppra) tablet 500 mg 500 mg, Enteral Tube, 2 TIMES DAILY, First dose on Sun08/25/21 at 0900, Until Discontinued, Do not crush or chew because of TASTE only. $ Given 09/01/2021 9:31 AM CDT 500 mg NG Tube $ Given 08/31/2021 8:43 PM CDT 500 mg NG Tube $ Given 08/31/2021 8:16 AM CDT 500 mg NG Tube levETIRAcetam (Keppra) tablet 500 mg 500 mg, Oral, 2 TIMES DAILY, First dose (after last modification) on Sun09/01/21 at 2100, Until Discontinued, Do not crush or chew because of TASTE only. $ Given 09/03/2021 8:46 AM CDT 500 mg $ Given 09/02/2021 9:00 PM CDT 500 mg $ Given 09/02/2021 8:17 AM CDT 500 mg linezolid (Zyvox) 600 mg in 300 ml IVPB 600 mg, at 200 mL/hr, Intravenous, EVERY 12 HOURS, 10 doses, First dose (after last modification) on Sun08/30/21 at 1315, Last dose on Sun09/04/21 at 0115, Indication for anti-infective therapy: Documented infection, Site of anti-infective therapy: Lower Respiratory, Upper Respiratory $ New Bag/Syringe 09/01/2021 12:15 AM CDT 600 mg 200 mL/hr $ New Bag/Syringe 08/31/2021 1:51 PM CDT 600 mg 200 m L/hr $ New Bag/Syringe 08/31/2021 1:30 AM CDT 600 mg 200 mL /hr linezolid (Zyvox) tablet 600 mg 600 mg, Enteral Tube, EVERY 12 HOURS, 6 doses, First dose on [facility] 09/01/21 at 0900, Last dose on [facility] 09/03/21 at 2100, Indication for anti-infective therapy: Documented infection, Site of anti-infective therapy: Upper Respiratory, Lower Respiratory $ Given 09/01/2021 9:30 AM CDT 600 mg NG Tube linezolid (Zyvox) tablet 600 mg 600 mg, Oral, EVERY 12 HOURS, 5 doses, First dose (after last modification) on [facility] 09/01/21 at 2100, Last dose on [facility] 09/03/21 at 2100, Indication for anti-infective therapy: Documented infection, Site of anti-infective therapy: Upper Respiratory, Lower Respiratory $ Given 09/03/2021 8:45 PM CDT 600 mg $ Given 09/03/2021 8:46 AM CDT 600 mg $ Given 09/02/2021 9:00 PM CDT 600 mg lisinopril (Prinivil; Zestril) tablet 10 mg 10 mg, Oral, DAILY, First dose on [facility] 09/04/21 at 2030, Until Discontinued $ Given 09/11/2021 8:41 AM CDT 10 mg $ Given 09/10/2021 9:37 AM CDT 10 mg $ Given 09/09/2021 8:29 AM CDT 10 mg melatonin tablet 3 mg 3 mg, Enteral Tube, AT BEDTIME, First dose on 08/30/21 at 2100, Until Discontinued $ Given 08/31/2021 8:44 PM CDT 3 mg NG Tu be $ Given 08/30/2021 10:13 PM CDT 3 mg N G Tube melatonin tablet 6 mg 6 mg, Oral, AT BEDTIME, First dose (after last modification) on [facility] 09/01/21 at 2100, Until Discontinued $ Given 09/12/2021 10:02 PM CDT 6 mg $ Given 09/11/2021 10:25 PM CDT 6 mg $ Given 09/10/2021 9:45 PM CDT 6 mg midazolam (Versed) 1 mg/mL injection ADS Med 1 dose, Starting on Sun08/29/21 at 0012, Until Sun08/29/21 at 0019, Created by cabinet override midazolam (Versed) 100 mg in 100 mL infusion premix 0-10 mg/hr (0-10 mL/hr), Intravenous, CONTINUOUS, Starting on Sun08/24/21 at 1945, Until Sun08/24/21 at 2036, Above RASS goal: Assess and treat pain first if CPOT greater than 2. Bolus per order until goal RASS and increase rate per order. Contact physician if unable to reach RASS goal after administering 4 boluses. At RASS goal and no change in 4 hrs: Decrease rate per order. Below RASS goal (unarousable): Hold infusion until at goal RASS then restart at 50% previous rate. If significant hemodynamic changes notify physician for instructions. Notify physician for inability to reach goals despite maximal dosage Note: The CPOT goal should be achieved first with the use of the ordered analgesic medication prior to targeting RASS goal with the sedative., Titration Parameters: Standard Parameters, Indication: Sedation, Initiate infusion at: 2 mg/hr, Titrate infusion by: 1 mg/hr, Titrate every: 5 minutes, Notify physician if: Unachievable RASS goal despite max dose, Titration Priority: 2nd $ New Bag/Syringe 08/24/2021 7:39 PM [facility] 4 mg/hr 4 mL/hr midazolam (Versed) injection 2 mg 2 mg, Intravenous, ONCE, 1 dose, On Sun08/29/21 at 0030 $ Given 08/29/2021 12:19 AM CDT 2 mg OLANZapine (ZyPREXA) injection 2.5 mg 2.5 mg, Intramuscular, EVERY 6 HOURS PRN, Agitation, Starting on Tu08/30/21 at 1542, Until Sun08/31/21 at 0853, Monitor for orthostatic hypotension prior to the administration. Reconstitute with 2.1 mL of sterile water to give approximately 5 mg/mL concentration. $ Given 08/31/2021 2:44 AM CDT 2.5 mg Right Arm $ Given 08/30/2021 8:00 PM CDT 2.5 mg Le ft leg OLANZapine (ZyPREXA) injection 5 mg 5 mg, Intramuscular, ONCE, 1 dose, On Sun08/31/21 at 2100, Monitor for orthostatic hypotension prior to the administration. Reconstitute with 2.1 mL of sterile water to give approximately 5 mg/mL concentration. $ Given 08/31/2021 8:48 PM CDT 5 mg Rig ht Deltoid OLANZapine (ZyPREXA) injection 5 mg 5 mg, Intramuscular, ONCE, 1 dose, On 09/03/21 at 1900, Monitor for orthostatic hypotension prior to the administration. Reconstitute with 2.1 mL of sterile water to give approximately 5 mg/mL concentration. $ Given 09/03/2021 7:10 PM CDT 5 mg Rig ht Deltoid OLANZapine (ZyPREXA) injection 5 mg 5 mg, Intramuscular, 3 TIMES DAILY PRN, Agitation, Psychosis, Anxiety, Starting on 09/03/21 at 2101, Until 09/04/21 at 0755, Monitor for orthostatic hypotension prior to the administration. Reconstitute with 2.1 mL of sterile water to give approximately 5 mg/mL concentration. $ Given 09/04/2021 5:15 AM CDT 5 mg Rig ht Deltoid $ Given 09/04/2021 3:05 AM CDT 5 mg Le ft Deltoid OLANZapine (ZyPREXA) tablet 2.5 mg 2.5 mg, Enteral Tube, ONCE, 1 dose, On Sun08/31/21 at 1745 $ Given 08/31/2021 5:32 PM CDT 2.5 mg NG Tube OLANZapine (ZyPREXA) tablet 5 mg 5 mg, Enteral Tube, 2 TIMES DAILY, First dose on Sun08/31/21 at 1400, Until Discontinued $ Given 08/31/2021 1:54 PM CDT 5 mg NG Tube OLANZapine (ZyPREXA) tablet 5 mg 5 mg, Enteral Tube, 2 TIMES DAILY, First dose (after last modification) on Sun09/01/21 at 0745, Until Discontinued $ Given 09/01/2021 9:30 AM CDT 5 mg NG Tu be pantoprazole (Protonix) injection 40 mg 40 mg, Intravenous, DAILY, First dose on Sun08/24/21 at 2045, Until Discontinued, For every 40 mg of pantoprazole mix with 10 mL Normal Saline (final concentration = 4 mg/mL). Inject SLOWLY over 2 min. $ Given 08/26/2021 8:31 AM [facility] 40 mg $ Given 08/25/2021 9:58 AM [facility] 40 mg $ Given 08/24/2021 9:50 PM [facility] 40 mg polyethylene glycol 3350 (Miralax) packet 17 g 17 g, Oral, ONCE, 1 dose, On Sun09/06/21 at 0730, Mix in 8 ounces of water, juice, soda, coffee or tea prior to administration $ Given 09/06/2021 8:21 AM CDT 17 g potassium - sodium phosphates (Phos-Nak) powder 1 packet 1 packet, Enteral Tube, ONCE, 1 dose, On Sun08/28/21 at 0845, Mix contents of packet in 6 to 8 ounces of water and drink, may taste better if cold Contains Phos 8 mmol, K+ 7 mEq, Na 7 mEq per packet $ Given 08/28/2021 8:57 AM CDT 1 packet OG Tu be potassium - sodium phosphates (Phos-Nak) powder 2 packet 2 packet, Enteral Tube, 3 TIMES DAILY WITH MEALS, 6 doses, First dose on Sun08/30/21 at 0200, Last dose on Sun08/31/21 at 1200, Mix contents of packet in 6 to 8 ounces of water and drink, may taste better if cold Contains Phos 8 mmol, K+ 7 mEq, Na 7 mEq per packet $ Given 08/31/2021 12:03 PM CDT 2 packets NG T ube $ Given 08/31/2021 8:15 AM CDT 2 packets NG Tube $ Given 08/30/2021 5:58 PM CDT 2 packets NG Tube propofol (Diprivan) infusion 0-80 mcg/kg/min ? 71.9 kg (0-34.512 mL/hr, rounded to 0-34.51 mL/hr), Intravenous, CONTINUOUS, Starting on Sun08/24/21 at 1945, Until Sun08/31/21 at 0716, Above RASS goal: Assess and treat pain first if CPOT greater than 2. If agitation persists increase rate per order. At RASS goal and no change in 4 hours: Decrease rate per order. Below RASS goal (unarousable): Hold infusion until at goal RASS then restart at 50% previous rate. If significant hemodynamic changes notify physician for instructions. Notify physician for inability to reach goals despite maximal dosage. Note: The CPOT goal should be achieved first with the use of the ordered analgesic medication prior to targeting RASS goal with the sedative. Vial and Tubing should be changed and/or discarded every 12 hours., Titration Parameters: Standard Parameters, Indication: Sedation, Initiate infusion at: 5 mcg/kg/min, Titrate infusion by: 5 mcg/kg/min, Titrate every: 2 minutes, Notify physician if: Unachievable RASS goal despite max dose, Titration Priority: 1st Rate Change 08/30/2021 9:25 AM CDT 10 mcg/kg/min 4.31 mL/hr Rate Change 08/30/2021 8:16 AM CDT 15 mcg/kg/min 6.47 mL/h r Rate Change 08/30/2021 8:10 AM CDT 20 mcg/kg/min 8.63 mL/h r QUEtiapine (SEROquel) tablet 100 mg 100 mg, Enteral Tube, 2 TIMES DAILY, First dose (after last modification) on Sun08/28/21 at 2100, Until Discontinued $ Given 08/28/2021 9:18 PM CDT 100 mg OG Tu be QUEtiapine (SEROquel) tablet 100 mg 100 mg, Enteral Tube, 2 TIMES DAILY, First dose (after last modification) on Sun08/30/21 at 2100, Until Discontinued $ Given 08/31/2021 8:16 AM CDT 100 mg NG Tu be $ Given 08/30/2021 10:13 PM CDT 100 mg N G Tube QUEtiapine (SEROquel) tablet 100 mg 100 mg, Oral, 2 TIMES DAILY, First dose (after last modification) on [facility]y 09/01/21 at 2100, Until Discontinued $ Given 09/13/2021 9:09 AM CDT 100 mg $ Given 09/12/2021 10:02 PM CDT 100 mg $ Given 09/12/2021 8:57 AM CDT 100 mg QUEtiapine (SEROquel) tablet 50 mg 50 mg, Enteral Tube, 2 TIMES DAILY, First dose on 08/27/21 at 1245, Until Discontinued $ Given 08/28/2021 8:50 AM CDT 50 mg OG Tube $ Given 08/27/2021 9:03 PM CASINO HOST 50 mg OG Tube $ Given 08/27/2021 12:25 PM CASINO HOST 50 mg O G Tube QUEtiapine (SEROquel) tablet 50 mg 50 mg, Enteral Tube, ONCE, 1 dose, On Sun08/28/21 at 1115 $ Given 08/28/2021 11:04 AM CDT 50 mg OG Tube QUEtiapine (SEROquel) tablet 50 mg 50 mg, Enteral Tube, 2 TIMES DAILY, First dose (after last modification) on Sun08/29/21 at 2100, Until Discontinued $ Given 08/30/2021 9:22 AM CDT 50 mg OG Tu be $ Given 08/29/2021 8:37 PM CDT 50 mg NG Tube QUEtiapine (SEROquel) tablet 50 mg 50 mg, Oral, ONCE, 1 dose, On Sun08/30/21 at 1400 $ Given 08/30/2021 2:14 PM CDT 50 mg rifAXIMin (Xifaxan) tablet 550 mg 550 mg, Enteral Tube, 2 TIMES DAILY, First dose on Sun08/26/21 at 1015, Until Discontinued $ Given 09/01/2021 9:31 AM CDT 550 mg NG Tube $ Given 08/31/2021 8:44 PM CDT 550 mg NG Tube $ Given 08/31/2021 8:16 AM CDT 550 mg NG Tube rifAXIMin (Xifaxan) tablet 550 mg 550 mg, Oral, 2 TIMES DAILY, First dose (after last modification) on Mendy 09/01/21 at 2100, Until Discontinued $ Given 09/13/2021 9:09 AM CDT 550 mg $ Given 09/12/2021 10:01 PM CDT 550 mg $ Given 09/12/2021 8:56 AM CDT 550 mg sodium - potassium phosphates (K Phos Neutral) tablet 1 tablet 1 tablet, Oral, ONCE, 1 dose, On Sun09/04/21 at 0745, Contains Phos 8 mmol, K+ 1.1 mEq, Na 13 mEq per tablet $ Given 09/04/2021 8:38 AM CDT 1 tablet sodium - potassium phosphates (K Phos Neutral) tablet 2 tablet 2 tablet, Enteral Tube, ONCE, 1 dose, On Sun08/29/21 at 0730, Contains Phos 8 mmol, K+ 1.1 mEq, Na 13 mEq per tablet $ Given 08/29/2021 9:22 AM CDT 2 tablets OG Tube sterile water for injection (preservative free) injection ADS Med 1 dose, Starting on Sun08/31/21 at 2049, Until Sun08/31/21 at 211, Created by cabinet override $ Given 08/31/2021 9:12 PM CDT 10 mL tamsulosin (Flomax) capsule 0.4 mg 0.4 mg, Oral, DAILY, First dose on Sun08/26/21 at 1015, Until Discontinued, Do not crush, chew $ Given 09/13/2021 9:09 AM CDT 0.4 mg $ Given 09/12/2021 8:56 AM CDT 0.4 mg $ Given 09/11/2021 8:41 AM CDT 0.4 mg vancomycin (Vancocin) 1,500 mg in 500 mL NaCl IVPB 1,500 mg, at 333.33 mL/hr, Intravenous, EVERY 12 HOURS, First dose on Sun08/29/21 at 0000, Until Discontinued, Indication for anti-infective therapy: Documented infection, Site of anti-infective therapy: Lower Respiratory Current Rate 08/30/2021 12:37 AM CDT 333.33 mL/hr $ New Bag/Syringe 08/30/2021 12:37 AM CDT 1,500 mg 333.3 3 mL/hr vancomycin (Vancocin) 1,750 mg in 500 mL NaCl IVPB 1,750 mg, at 285.71 mL/hr, Intravenous, ONCE, 1 dose, On Sun08/29/21 at 1200, Indication for anti-infective therapy: Documented infection, Site of anti-infective therapy: Lower Respiratory $ New Bag/Syringe 08/29/2021 12:12 PM CDT 1,750 mg 285.71 mL/hr documented in this encounter Active and Recently Administered Medications Times are shown in CDT. Scheduled Medication Order 09/11/2021 09/12/2021 09/13/2021 0.9% NaCl injection 3 mL(Linked Group 1) 3 mL, Intracatheter, EVERY 8 HOURS, First dose on Sun08/24/21 at 2200, Until Discontinued, Flush peripheral IV catheter with 3 mL of normal saline every 8 hours. 0555 (Not Administered - Provider: Cristal Oden RN - Reason: Loss of Access - Comment: no IV access)1332 (Not Administered - Provider: Christine Randall RN - Reason: Refused-Patient)2100 (Not Administered - Provider: Cristal Oden RN - Reason: Loss of Access - Comment: no IV access) 0600 (Due)1446 (Not Administered - Provider: Christine Randall RN - Reason: Loss of Access)2202 (Not Administered - Provider: Cristal Oden RN - Reason: Loss of Access) 0641 (Not Administered - Provider: Cristal Oden RN - Reason: Loss of Access - Comment: no IV access)1453 (Not Administered - Provider: Jerri Thomas RN - Reason: See Comments - Comment: no iv) heparin injection 5,000 Units 5,000 Units, Subcutaneous, EVERY 8 HOURS, First dose on Sun08/26/21 at 1400, Until Discontinued 0518 ($ Given - Provider: Cristal Oden RN)1332 ($ Given - Provider: Christine Randall RN)2223 ($ Given - Provider: Cristal Oden RN) 0544 ($ Given - Provider: Cristal Oden RN)1446 ($ Given - Provider: Christine Randall RN)2202 ($ Given - Provider: Cristal Oden RN) 0545 ($ Given - Provider: Cristal Oden RN)1451 ($ Given - Provider: Jerri Thomas RN) lacosamide (Vimpat) tablet 100 mg 100 mg, Oral, 2 TIMES DAILY, First dose on Sun09/03/21 at 1130, Until Discontinued 0841 ($ Given - Provider: Christine Randall RN)2224 ($ Given - Provider: Cristal Oden RN) 0856 ($ Given - Provider: Christine Randall RN)220 ($ Given - Provider: Cristal Oden RN) 0909 ($ Given - Provider: Jerri Thomas RN) lactulose (Chronulac) solution 10 g 10 g, Oral, 2 TIMES DAILY, First dose (after last modification) on Sun09/09/21 at 2100, Until Discontinued 0841 ($ Given - Provider: Christine Randall RN)2224 ($ Given - Provider: Cristal Oden RN) 0856 ($ Given - Provider: Christine Randall RN)220 ($ Given - Provider: Cristal Oden RN) 0910 ($ Given - Provider: Jerri Thomas RN) lisinopril (Prinivil; Zestril) tablet 10 mg (CANCELED) 10 mg, Oral, DAILY, First dose on Sun09/04/21 at 2030, Until Discontinued 0841 ($ Given - Provider: Christine Randall RN) melatonin tablet 6 mg 6 mg, Oral, AT BEDTIME, First dose (after last modification) on [facility] 09/01/21 at 2100, Until Discontinued 222 ($ Given - Provider: Cristal Oden RN) 220 ($ Given - Provider: Cristal Oden RN) QUEtiapine (SEROquel) tablet 100 mg 100 mg, Oral, 2 TIMES DAILY, First dose (after last modification) on [facility] 09/01/21 at 2100, Until Discontinued 0841 ($ Given - Provider: Christine Randall RN)222 ($ Given - Provider: Cristal Oden RN) 0857 ($ Given - Provider: Christine Randall RN)220 ($ Given - Provider: Cristal Oden RN) 0909 ($ Given - Provider: Jerri Thomas RN) rifAXIMin (Xifaxan) tablet 550 mg 550 mg, Oral, 2 TIMES DAILY, First dose (after last modification) on [facility] 09/01/21 at 2100, Until Discontinued 0841 ($ Given - Provider: Christine Randall RN)222 ($ Given - Provider: Cristal Oden RN) 0856 ($ Given - Provider: Christine aRndall RN)2201 ($ Given - Provider: Cristal Oden RN) 0909 ($ Given - Provider: Jerri Thomas RN) tamsulosin (Flomax) capsule 0.4 mg 0.4 mg, Oral, DAILY, First dose on Sun08/26/21 at 1015, Until Discontinued, Do not crush, chew 0841 ($ Given - Provider: Christine Randall, RN) 0856 ($ Given - Provider: Christine Randall, RN) 0909 ($ Given - Provider: Jerri Thomas RN) PRN Medication Order 09/11/2021 09/12/2021 09/13/2021 0.9% NaCl injection 1-10 mL(Linked Group 1) 1-10 mL, Intracatheter, PRN, Other, peripheral line flush, Starting on Sun08/24/21 at 1852, Until Sun09/13/21 at 2018, Flush peripheral IV catheter with 1-10 mL of normal saline before and after medications and prn to clear blood from the line or to verify patency. acetaminophen (Tylenol) tablet 500 mg 500 mg, Oral, EVERY 4 HOURS PRN, Fever, t>100.8, Starting on [facility] 09/01/21 at 1458, Until Sun09/13/21 at 2018, Patient preference for lesser PRN pain meds may be honored when the patient requests a less strong medication, a lower dose, or a less intrusive route of administration when the lesser drug, dose and route have been ordered for the patient. This patient request must be documented in the MAR. haloperidol (Haldol) tablet 5 mg(Linked Group 2) 5 mg, Oral, EVERY 6 HOURS PRN, Agitation, Psychosis, Starting on Sun09/04/21 at 0749, Until Sun09/13/21 at 2018 1057 ($ Given - Prov ider: Jerri Thomas RN) haloperidol lactate (Haldol) injection 5 mg(Linked Group 2) 5 mg, Intramuscular, EVERY 6 HOURS PRN, Agitation, Psychosis, Starting on Sun09/04/21 at 0749, Until Sun09/13/21 at 2018, If oral route unavailable 1057 (See Alternativ e - Provider: Jerri Thomas RN) Linked Groups Order Group 1: SALINE LOCK, INSERT AND MAINTAIN (CANCELED) Routine, CONTINUOUS, Starting on Sun08/24/21 at 1900, Until Specified, New collection, Task Completed: Yes And 0.9% NaCl injection 3 mLJump to med 3 mL, Intracatheter, EVERY 8 HOURS, First dose on Sun08/24/21 at 2200, Until Discontinued, Flush peripheral IV catheter with 3 mL of normal saline every 8 hours. And 0.9% NaCl injection 1-10 mLJump to med 1-10 mL, Intracatheter, PRN, Other, peripheral line flush, Starting on Sun08/24/21 at 1852, Until Sun09/13/21 at 2018, Flush peripheral IV catheter with 1-10 mL of normal saline before and after medications and prn to clear blood from the line or to verify patency. Group 2: haloperidol (Haldol) tablet 5 mgJump to med 5 mg, Oral, EVERY 6 HOURS PRN, Agitation, Psychosis, Starting on Sun09/04/21 at 0749, Until Sun09/13/21 at 2018 Or haloperidol lactate (Haldol) injection 5 mgJump to med 5 mg, Intramuscular, EVERY 6 HOURS PRN, Agitation, Psychosis, Starting on Sun09/04/21 at 0749, Until Sun09/13/21 at 2018, If oral route unavailable documented in this encounter Additional Health Concerns Infection Onset Date Last Indicated Resolved Time 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
--- OUTSIDE RECORDS SUMMARY | 2024-06-27 04:50 | XMS_ITS | Encounter Summary ---
Author Organization [facility] Address [address] [facility] [place] [address] Care Team Providers Care Plug Sorter Name Role Phone Unavailable Primary Care Provider Unavailabl e Encounter Details Date Type Department Care Team (Late st Contact Info) Description 10/28/2018 12:14 PM CDT - 10/28/2018 11:59 PM CDT Hospital Encounter [facility] DIAGNOSTIC RAD [facility] [address] [facility] [place] [phone] Maciel Greer MD [address] [facility] [place] [address] Discharge Disposition: Home or Self Care Social [...] both eyes every 8 hours 10/17/2018 08/25/2021 famotidine (PEPCID) 20 MG tablet 0 10/25/2018 [...] (LAMICTAL) 25 MG tablet 0 10/25/2018 08/25/2021 melatonin 3 MG tablet Take 2 tablets [...] Info) Description 08/25/2024 1:10 PM CDT Documentation [facility] [address] [facility] [address] [place] [phone] 08/25/2024 1:20 PM CDT Office Visit [facility] [address] [facility] [address] [place] [address] Migue Reeder MD [address] [facility] [address] [place] [address] documented as of this encounter Procedures Procedure Name Priority Date/Time Associated Diagnosis Comments XR WRIST LEFT 3VW OR MORE Routine 10/28/2018 12:23 PM CDT Other closed fracture of distal end of left radius with routine healing, subsequent encounter documented in this encounter Results * XR WRIST LEFT 3VW OR MORE (10/28/2018 12:23 PM CDT) Anatomical Region Laterality Modality Wrist / Hand Radiographic Lynette ging 10/28/2018 1:15 PM CDT Impressions 10/28/2018 1:32 PM CDT IMPRESSION: Status post open reduction and internal fixation of a distal radius fracture unchanged in alignment. Report dictated by Keron Sánchez DO (residential property consultant). I, Dr. EMIR HOPKINS have personally reviewed and interpreted this examination/study. This report was electronically signed by EMIR HOPKINS ??on 10/28/2018 1:32 PM . Narrative 10/28/2018 1:32 PM CDT EXAMINATION: XR WRIST LEFT 3VW HISTORY: Left Distal Radius Fracture COMPARISON: Left wrist radiograph dated 10/15/2018. FINDINGS: Patient is status post open reduction internal fixation of a distal radius fracture with a volar plate and screws. The hardware is intact without evidence of loosening or failure. The osseous alignment is unchanged compared with prior exam. No new fractures identified. No osseous erosions are seen. Mild soft tissue swelling persists. Procedure Note Emir Hopkins DO - 10/28/2018 EXAMINATION: XR WRIST LEFT 3VW HISTORY: Left Distal Radius Fracture COMPARISON: Left wrist radiograph dated 10/15/2018. FINDINGS: Patient is status post open reduction internal fixation of a distalradius fracture with a volar plate and screws. The hardware is intact without evidence of loosening or failure. The osseous alignment is unchanged compared with prior exam. No new fractures identified. No osseouserosions are seen. Mild soft tissue swelling persists. IMPRESSION: Status post open reduction and internal fixation of a distal radius fracture unchanged in alignment. Report dictated by Keron Sánchez DO (residential property consultant). I, Dr. EMIR HOPKINS have personally reviewed and interpreted this examination/study. This report was electronically signed by EMIR HOPKINS on 10/28/2018 1:32 PM . Maciel Greer MD DIAGNOSTIC IMAGING ORDERABLES documented in this encounter Visit Diagnoses Diagnosis Other closed fracture of distal end of left radius with routine healing, subsequent encounter documented in this encounter
--- OUTSIDE RECORDS SUMMARY | 2024-06-27 04:50 | XMS_ITS | Encounter Summary ---
Author Organization [facility] Address [address] [facility] [place] [address] Care Team Providers Care Nursing Home Director Name Role Phone Unavailable Primary Care Provider Unavailabl e Encounter Details Date Type Department Care Team (Late st Contact Info) Description 11/19/2018 Orders Only [facility] - Orthopedics [address] [place] [address], [place] [phone] Maciel Greer MD [address] [place] [address] [place] [address] Other closed fracture of distal [...] Description 08/25/2024 1:10 PM CDT Documentation [facility] Cancer [address] [phone] 08/25/2024 1:20 PM CDT Office Visit [address] [phone] Migue Reeder MD [address] [place] [phone] documented as of this encounter Results * XR WRIST LEFT 3VW OR MORE (11/25/2018 10:14 AM CDT) Anatomical Region Laterality Modality Wrist / [...] radius with routine healing, subsequent encounter- Primary Other closed fracture of distal end of left radius with routine healing, subsequent encounter documented in this encounter
--- OUTSIDE RECORDS SUMMARY | 2024-06-27 04:50 | XMS_ITS | Encounter Summary ---
Author Organization [facility] Address [address] [place] [address] Care Team Providers Care Vocal Teacher Name Role Phone Unavailable Primary Care Provider Unavailabl e Encounter Details Date Type Department Care Team (Late st Contact Info) Description 10/28/2018 11:45 AM CDT Office Visit [facility] - Orthopedics [address] [place] [address], [place] [phone] Maciel Greer MD [address] [place] [address] OF ORTHOPEDIC SURGERY [place], [place] [id number] Other closed fracture of distal end of left radius with routine healing, subsequent encounter (Primary Dx) Social History Tobacco Use Types [...] Sign Reading Time Taken Comments Blood Pressure - - Pulse - - Temperature - - Respiratory Rate - - Oxygen Saturation - - Inhaled Oxygen Concentration - - Weight 86.2 kg (190 lb) 10/28/2018 12:29 PM CDT Height 182.9 cm (6') 10/28/2018 12:29 PM CDT Body Mass Index 25.77 10/28/2018 12:29 PM CDT documented in this encounter Functional [...] No 10/17/2018 documented as of this encounter Patient Instructions * Patient Instructions* Christelle Graves PA-C - 10/28/2018 1:14 PM CDT Images from the original note were not included. Department of Orthopaedic Surgery Chester Dubose 10/28/2018 Thank you for allowing us to care for you today. You were seen in clinic today for follow up. Please use this note as a school/work excuse: patient had appointment on 10/28/2018. Diagnosis: Other closed fracture of distal end of left radius with routine healing, subsequent encounter Your weight bearing (WB) status will be NWB of the left upper extremity We recommend that you try the following for your injury: 1. Activities as tolerated 2. physical therapy exercises - home exercises 3. Keep incision dry 4. Shower: OK to shower, pat dry. No submersion Prescriptions: Medications over the counter: - Ibuprofen (Advil) 200mg 1-3 tablets every 8 hours as needed for pain, not exceeding daily total of 2400mg OR Naproxen (Aleve) 220mg 1-2 tablets every 12 hours as needed for pain. Take with food or milk to prevent stomach upset. Do not take any other NSAIDs while taking this medication. Please make a follow up appointment for 4 weeks or if something about your condition significantly changes. Please call the clinic if you have any questions. [facility] Orthopaedic office contact information: [facility] [address] [place] [phone] Visit our website at [email or web address] for information about our practice and an interactive health encyclopedia. Please visit [employer] to access your health record, ask questions, request medication refills, and request appointments for non-urgent needs after you have configured your [employer] account. If you do not currently have access, please contact one of our staff members or call [phone]. For after hour emergencies, please call and press 0 for the tenoner operator in order to page the orthopedic resident second baller. documented in this encounter Progress Notes * Maciel Greer MD - 10/28/2018 12:54 PM CDT Orthopaedic Trauma Surgery Clinic Note Chester Dubose 48 year old male CSN: [id number] Date of service: 10/28/2018 HPI Chester Dubose is a RHD 48 year old male who had a L distal radius fracture and was treated with ORIF on 10/15/18. This is the patient's first visit since being discharged from hospital. Pain hasbeen controlled since the last visit. The pain is located wrist, mild and tolerable. He is taking OTC tylenol prn pain for pain and none for DVT prophylasix. The patient has been NWB of the left upper extremity with splint since He was last seen. No other orthopedic complaints at this time. Denies any recent fever or chills, tingling, numbness. He is a smoker, quit 3 weeks ago. He states he also stopped drinking hard liquor since injury. Prior to injury, patient was retired. He is at visit withhis sister. Review of Systems A 10 point Review of Systems was performed and is only significant for mild pain in wrist. Physical Exam Ht 1.829 m (6') Wt 86.2 kg (190 lb) BMI 25.77 kg/m2 General exam: patient cooperative with exam, well developed, well nourished, no acute distress Left upper extremity: Incision: clean, dry, and intact without evidence of erythema, dehiscence, ordrainage. There is mild tenderness of the wrist. ROM of ankle is 10 degrees extension, 15 degrees flexion. intact motor R/M/U/AIN/PIN, Sensation: intact to light touch in R/M/U nerve distributions distally, 2+ Radial pulse, Brisk capillary refill (<2 sec). Imaging Results independently reviewed in clinic. XR 3 view(s) L wrist: Demonstrates good alignment with fixation. Hardware is intact with no evidence loose or broken screws. Assessment and Plan Other closed fracture of distal end of left radius with routine healing, subsequent encounter This is a 48 year old male who is 2 weeks status post ORIF L distal radius (DOS: 10/15/18). Mr. Dubose was counseled as to his diagnosis Images reviewed in office with patient He demonstrated understanding The patient's weight bearing status will be NWB of the left upper extremity The patient was placed into a velcro wrist brace today. Discussed ROM of fingers and wrist at home OK to shower, pat dry. Work: retired Prescriptions: NSAIDs Follow up in 4 weeks XR needed at follow up: Yes - 3 view(s) XR of the L wrist He will call in the interm with any questions or concerns. Maciel Greer MD 10/28/2018 12:54 PM * Gaurang Amaral RN - 10/28/2018 12:35 PM CDT Patient's first post op visit, s/p ORIF Left Distal Radius Fracture short leg cast in place which was removed today. Skin dry and intact , incision site well approximated. Pain has been controlled, takes OTC Tylenol. Denies any recent fever or chills, reported occasional numbness to left thumb. Velcro wrist brace provided. documented in this encounter Plan of Treatment Upcoming Encounters Date Type Department Care Team (Late st Contact Info) Description 08/25/2024 1:10 PM CDT Documentation [address] [phone] 08/25/2024 1:20 PM CDT Office Visit [address] [phone] Migue Reeder MD [address] [facility] [address] [place] [address] documented as of this encounter Visit Diagnoses Diagnosis Other closed fracture of distal end of left radius with routine healing, subsequent encounter- Primary documented in this encounter
--- OUTSIDE RECORDS SUMMARY | 2024-06-27 04:50 | XMS_ITS | Encounter Summary ---
Author Organization [facility] Address [address] [facility] [place] [address] Care Team Providers Care College Sports Coach Name Role Phone Unavailable Primary Care Provider Unavailabl e Encounter Details Date Type Department Care Team (Latest Contact Info) Description 10/17/2018 6:02 PM CDT - 10/25/2018 10:45 AM CDT Hospital Encounter [address] [place] [address] [place] [address] [place] [address] General Rehabilitation Discharge Disposition: Home or Self Care Social [...] 10/18/2018 08/25/2021 documented as of this encounter Consult Notes * Marlyn Kim LPN - 10/25/2018 11:35 AM CDTAssociated Order(s): IP CONSULT TO HOME HEALTH CARE Home Care consult noted. [facility] is not able to accept due to staffing in [place]. Referral has been set up with [place], SOC most likely will be on Sunday. Marlyn Kim LPN Hospital Clinical Rehab Specialist [facility] [phone] After 4:30 or over the weekend call [phone] option 1 documented in this encounter Plan of Treatment Upcoming Encounters Date Type Department Care Team (Late st Contact Info) Description 08/25/2024 1:10 PM CDT Documentation [address] [phone] 08/25/2024 1:20 PM CDT Office Visit [address] [phone] Migue Reeder MD [address] [place] [address] documented as of this encounter Visit Diagnoses Not on filedocumented in this encounter
--- OUTSIDE RECORDS SUMMARY | 2024-06-27 04:50 | XMS_ITS | Encounter Summary ---
Author Organization [facility] Address [address] [facility] [place] [address] Care Team Providers Care Flare Worker Name Role Phone Unavailable Primary Care Provider Unavailabl e Reason for Visit * Evaluate & Treat (Routine) - Closed Specialty Diagnoses / Procedures Referred By Hoang leroy Referred To Contact Orthopedic Surgery / Orthopedics [address] [phone] Maciel Greer MD [address] [place] [address] [place] [address] Referral ID Status Reason Start Date Expiration Date Visits Re quested Visits Authorized [id number] Closed 11/25/2018 05/24/2019 1 1 Encounter Details Date Type Department Care Team (Late st Contact Info) Description 11/25/2018 10:15 AM CDT Office Visit [facility] - Orthopedics [address] [place] [address], [place] [address] Maciel Greer MD [address] [place] [address] [place] [address] Other closed fracture of distal [...] - - Weight 86.2 kg (190 lb) 11/25/2018 10:42 AM CDT Height 182.9 cm (6') 11/25/2018 10:42 AM CDT Body Mass Index 25.77 11/25/2018 10:42 AM CDT documented in this encounter Functional [...] * Patient Instructions* Christelle Graves PA-C - 11/25/2018 10:51 AM CDT Images from the original note were not included. Department of Orthopaedic Surgery Chester Dubose 11/25/2018 Thank you for allowing us to care for you today. You were seen in clinic today for follow up. Please use this note as a school/work excuse: patient had appointment on 11/25/2018. Diagnosis: Other closed fracture of distal end of left radius with routine healing, subsequent encounter Your weight bearing (WB) status will be WB ~5lbs of the left upper extremity We recommend that you try the following for your injury: 1. Activities as tolerated 2. physical therapy exercises for motion 3. Keep incision dry 4. Shower: OK to shower, pat dry. No submersion Prescriptions: Medications over the counter: - Acetaminophen (Tylenol) 500mg 1-2 tablets every 6 hours as needed for pain, not exceeding daily total of 4000mg. Please note that narcotic medications can consist of same ingredient. - Ibuprofen (Advil) 200mg 1-3 tablets every 8 hours as needed for pain, not exceeding daily total of 2400mg OR Naproxen (Aleve) 220mg 1-2 tablets every 12 hours as needed for pain. Take with food or milk to prevent stomach upset. Do not take any other NSAIDs while taking this medication. Please take the following to promote bone health: ?? Multivitamin 1 tablet daily ?? Vitamin D3 2000 IU 1 tablet daily ?? Calcium 600mg with Vitamin D 400 IU 2 tablets daily Please make a follow up appointment for 6 weeks or if something about your condition significantly changes. Please call the clinic if you have any questions. [facility] Orthopaedic office contact information: [facility] , option 2 then option 1 for [address] [place] [address] Visit our website at [email or web address] for information about our practice and an interactive health encyclopedia. Please visit [email or web address] to access your health record, ask questions, request medication refills, and request appointments for non-urgent needs after you have configured your [employer] account. If you do not currently have access, please contact one of our staff members or call [phone]. For after hour emergencies, please call [phone] and press 0 for the braiding operator in order to page the orthopedic resident financial planning consultant. Cigarette Smoking and Your Health BORDER PATROL OFFICER: Risks to your health if you smoke: Nicotine and other chemicals found in tobacco damage every cell in your body. Even if you are a light smoker, you have an increased risk for cancer, heart disease, and lung disease. If you are or have diabetes, smoking increases your risk for complications. Benefits to your health if you stop smoking: ?? You decrease respiratory symptoms such as coughing, wheezing, and shortness of breath. ?? You reduce your risk for cancers of the lung, mouth, throat, kidney, bladder, pancreas, stomach,and cervix. If you already have cancer, you increase the benefits of chemotherapy. You also reduce your risk for cancer returning or a second cancer from developing. ?? You reduce your risk for heart disease, blood clots, heart attack, and stroke. ?? You reduce your risk for lung infections, and diseases such as pneumonia, asthma, chronic bronchitis, and emphysema. ?? Your circulation improves. More oxygen can be delivered to your body. If you have diabetes, you lower your risk for complications, such as kidney, artery, and eye diseases. You also lower your risk for nerve damage. Nerve damage can lead to amputations, poor vision, and blindness. ?? You improve your body's ability to heal and to fight infections. Benefits to the health of others if you stop smoking: Tobacco is harmful to nonsmokers who breathe in your secondhand smoke. The following are ways the health of others around you may improve when you stop smoking: ?? You lower the risks for lung cancer and heart disease in nonsmoking adults. ?? If you are , you lower the risk for miscarriage, early delivery, low weight, and stillbirth. You also lower your baby's risk for SIDS, obesity, developmental delay, and neurobehavioral problems, such as ADHD. ?? If you have children, you lower their risk for ear infections, colds, pneumonia, bronchitis, andasthma. For more information and support to stop smoking: ?? Smokefree.gov Phone: Web Address: www.[employer].gov Follow up with your healthcare provider as directed: Write down your questions so you remember to ask them during your visits. ?? Copyright [employer] 2019 Information is for End User's use only and may not be sold, redistributed or otherwise used for commercial purposes. All illustrations and images included in CareNotes?? are the copyrighted property of [employer] or [employer]™ The above information is an hearing aid specialist only. It is not intended as medical advice for individual conditions or treatments. Talk to your doctor, nurse or pharmacist before following any medical regimen to see if it is safe and effective for you. documented in this encounter Progress Notes * Maciel Greer MD - 11/25/2018 10:47 AM CDT Orthopaedic Trauma Surgery Clinic Note Chester Morgan Jr [place] 48 year old male CSN: [id number] Date of service: 11/25/2018 [facility] Chester C Jr Dubose is a RHD 48 year old male who had a L distal radius fracture and was treated with ORIF on 10/15/18. Patient was last seen in clinic on 10/28/18. Pain has been controlled since the last visit. The pain is located wrist, mild. He is taking OTC medications for pain and none for DVT prophylaxis. The patient has been NWB of the left upper extremity with velcro wrist brace since He was last seen. He is doing HEP. No other orthopedic complaints at this time. Denies any recent fever or chills, tingling, numbness. He recently stopped smoking, states also has not drank hard liquor. Prior to injury, patient was retired. Review of Systems A 10 point Review of Systems was performed and is only significant for stiffness wrist. Physical Exam Ht 1.829 m (6') Wt 86.2 kg (190 lb) BMI 25.77 kg/m2 General exam: patient cooperative with exam, well developed, well nourished, no acute distress Left upper extremity: Incision: clean, dry, and intact without evidence of erythema, dehiscence, ordrainage. There is no tenderness of the fracture site. ROM of wrist is 10 degrees flexion, 25 degrees extension. intact motor R/M/U/AIN/PIN, Sensation: intact to light touch in R/M/U nerve distributions distally, 2+ Radial pulse, Brisk capillary refill (<2 sec). Imaging Results independently reviewed in clinic. XR 3 view(s) L wrist: Demonstrates good alignment with fixation, interval healing. Hardware is intact with no evidence loose or broken screws. Assessment and Plan Other closed fracture of distal end of left radius with routine healing, subsequent encounter This is a 48 year old male who is 6 weeks status post ORIF L distal radius (DOS: 10/15/18). Mr. Dubose was counseled as to his diagnosis Images reviewed in office with patient He demonstrated understanding The patient's weight bearing status will be WB ~5lbs of the left upper extremity The patient can continue in velcro wrist brace, do ROM of wrist at home. Patient declined formal PT. OK to shower, pat dry. Work: unable to work Prescriptions: acetaminophen and NSAIDs Pasta Press Operator Vitamin D and calcium DVT ppx: none Follow up in 6 weeks XR needed at follow up: Yes - 3 view(s) XR of the L wrist He will call in the interm with any questions or concerns. The patient was identified as a smoker and was counseled on smoking cessation for 10 minutes duringclinic today. They understand the negative consequences of any nicotine products on their injury aswell as on any future surgical treatment. They were also recommended to their primary care physician if they need assistance with cessation of using nicotine. Maciel Greer MD 11/25/2018 10:47 AM documented in this encounter Plan of Treatment Upcoming Encounters Date Type Department Care Team (Late st Contact Info) Description 08/25/2024 1:10 PM CDT Documentation [address] [phone] 08/25/2024 1:20 PM CDT Office Visit [address] [phone] Migue Reeder MD [address] [place] [phone] documented as of this encounter Visit Diagnoses Diagnosis Other closed fracture of distal end of left radius with routine healing, subsequent encounter- Primary documented in this encounter
--- OUTSIDE RECORDS SUMMARY | 2024-06-27 04:50 | XMS_ITS | Encounter Summary ---
Author Organization [facility] Address [address] [facility] [place] [address] Care Team Providers Care Finished Goods Stock Clerk Name Role Phone Unavailable Primary Care Provider Unavailabl e Encounter Details Date Type Department Care Team (Late st Contact Info) Description 10/24/2018 Orders Only [facility] - Orthopedics [address] [place] [address], [place] [phone] Maciel Greer MD [address] [place] [address] [place] [address] Other closed fracture of distal [...] Info) Description 08/25/2024 1:10 PM CDT Documentation [address] [place] [phone] 08/25/2024 1:20 PM CDT Office Visit [address] [place] [phone] Migue Reeder MD [address] [place] [address] [place] [phone] documented as of this encounter Results * XR WRIST LEFT 3VW OR MORE (10/28/2018 12:23 PM CDT) Anatomical Region Laterality Modality Wrist / Hand Radiographic Lynette ging 10/28/2018 1:15 PM CDT Impressions 10/28/2018 1:32 PM CDT IMPRESSION: Status post open reduction and internal fixation of a distal radius fracture unchanged in alignment. Report dictated by Keron Sánchez DO (residential interior designer). I, Dr. EMIR HOPKINS have personally reviewed [...] Report dictated by Keron Sánchez DO (residential interior designer). I, Dr. EMIR HOPKINS have personally reviewed [...]
--- OUTSIDE RECORDS SUMMARY | 2024-06-27 04:50 | XMS_ITS | Encounter Summary ---
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 [place] [phone] Maciel Greer MD [address] [facility] [place] [address] Discharge Disposition: Home or Self Care Social [...] CR 24hr (INTUNIV) 1 MG tablet 0 10/25/20182021 haloperidol lactate (HALDOL) injection Inject 1 mL into muscle every 6 hours as needed for Agitation 10/17/2018 08/25/2021 lamoTRIgine (LAMICTAL) 25 MG tablet 0 10/25/2018 08/25/2021 melatonin 3 MG tablet Take 2 tablets by mouth at bedtime 10/17/2018 08/25/2021 multivitamin daily tablet Take 1 tablet by mouth once daily 10/18/2018 08/25/2021 polyethylene glycol 3350 (MIRALAX) packet Take 17 g by mouth once daily 10/18/2018 08/25/2021 documented as of this encounter Plan of Treatment Upcoming Encounters Date Type Department Care Team (Late st Contact Info) Description 08/25/2024 1:10 PM CDT Documentation [address] [phone] 08/25/2024 1:20 PM CDT Office Visit [facility] [address] [facility] [address] [place] [phone] Migue Reeder MD [address] [facility] [address] [place] [address] documented as of this encounter Procedures Procedure Name Priority Date/Time Associated Diagnosis Comments XR WRIST LEFT 3VW OR MORE Routine 11/25/2018 10:14 AM CDT Other closed fracture of distal end [...]
--- OUTSIDE RECORDS SUMMARY | 2024-06-27 04:51 | XMS_ITS | Encounter Summary ---
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 EXAMINATION: XR WRIST LEFT 2VW HISTORY: post op COMPARISON: Left wrist on 10/14/2018 FINDINGS: A splint obscures the osseous details. There has been interval placement of a distal ventral radial internal fixator, with intact screws. The distal radial fracture is in improved alignment. IMPRESSION: Splinted internally fixated distal radial intra-articular fracture. Report drafted by Carlos Manuel Avendaño M.D. (resident) I, Dr. AN RICO M.D. have personally reviewed and interpreted this examination/study. This report was electronically signed by AN RICO M.D. on 10/15/2018 3:07 PM . Lupillo Baxter MD DIAGNOSTIC I MAGING ORDERABLES * FL CALI SURGERY (10/15/2018 1:02 PM CDT) Narrative [facility] RADIOLOGY - 10/15/2018 1:02 PM CDT Fluoroscopy was used for this exam in the OR. Please see the Operative report. Maciel Greer MD FLUOROSCOPY ORDERA [facility] RADIOLOGY * EKG 12-LEAD (10/15/2018 8:33 AM CDT) Ventricular Rate 103 BPM [facility] MUSE Atrial Rate 103 BPM [facility] MUSE P-R Interval 136 ms [facility] MUSE QRS Duration ms 76 ms [facility] MUSE Q-T Interval ms 386 ms [facility] MUSE QTC Calculation (Bezet) 505 ms [facility] MUSE Calculated P [place] 38 degrees [facility] MUSE Calculated R [place] 71 degrees [facility] MUSE Calculated T [place] 37 degrees [facility] MUSE Interpretation EKG SINUS TACHYCARDIA OTHERWISE NORMAL ECG WHEN COMPARED WITH ECG OF 10-OCT-2018 16:26, VENT. RATE HAS INCREASED by 39bpm Confirmed by Wesley WOODS, DANISH ([id number]), map editor Carmela Galeano ([id number]) on 11/26/2018 8:49:53 PM [facility] MUSE 10/15/2018 8:33 AM CDT 11/26/2018 8:49 PM CDT Emmanuelle Adams TELEVISION REPAIRER[employer] LEADER ECG ORDERABLES Performing Organization Address City/[facility]/ZIP Co de Phone Number [facility] MUSE * (ABNORMAL) RBC MORPHOLOGY (10/15/2018 4:54 AM CDT) Anisocytosis 1+(A) None 10/15/2018 6:49 AM CDT [facility] Polychromasia Occasional (A) None 10/15/2018 6:49 AM CDT [facility] Target Cells 1+(A) None 10/15/2018 6:49 AM CDT [facility] Blood BLOOD SPECIMEN / Unknown Lab Venipuncture / Unknown 10/15/2018 4:54 AM CDT 10/15/2018 5:15 AM CDT Juancho Rhodes MD LAB - HEMATOLOGY ORD ERABLES Performing Organization Address [facility]/ZIP Co de Phone Number [address] [phone] * PHOSPHORUS BLOOD (10/15/2018 4:54 AM CDT) Phosphorus 3.0 2.3 - 4.7 mg/dL 10/15/2018 5:34 AM CDT [facility] Blood BLOOD SPECIMEN / Unknown Lab Venipuncture / Unknown 10/15/2018 4:54 AM CDT 10/15/2018 5:15 AM CDT Juancho Rhodes MD LAB - CHEMISTRY ORDE RABEMILE Performing Organization Address [facility]/ZIP Co de Phone Number [address] [phone] * (ABNORMAL) MAGNESIUM BLOOD (10/15/2018 4:54 AM CDT) Magnesium 1.5(L) 1.6 - 2.6 mg/dL 10/15/2018 5:34 AM CDT [facility] Blood BLOOD SPECIMEN / Unknown Lab Venipuncture / Unknown 10/15/2018 4:54 AM CDT 10/15/2018 5:15 AM CDT Juancho Rhodes MD LAB - CHEMISTRY MIGUEL GOLD [facility] Organization Address City/State/ZIP Co de Phone Number [facility] [address] [place] [address] * (ABNORMAL) CBC W AUTO DIFFERENTIAL (10/15/2018 4:54 AM CDT) WBC 9.2 3.5 - 10.5 10? 3 /uL 10/15/2018 5:21 AM [facility] RBC 3.58(L) 4.30 - 5.70 10? 6 /uL 10/15/2018 5:21 AM [facility] Hemoglobin 10.0(L) 13.5 - 17.5 g/dL 10/15/2018 5:21 AM [facility] Hematocrit 31.8(L) 39.0 - 50.0 % 10/15/2018 5:21 AM [facility] MCV 88.8 81.0 - 97.0 fL 10/15/2018 5:21 AM [facility] MCH 27.9(L) 28.0 - 34.0 pg 10/15/2018 5:21 AM [facility] MCHC 31.4(L) 32.0 - 36.0 g/dL 10/15/2018 5:21 AM [facility] Platelet Count 316 150 - 400 10? 3 /uL 10/15/2018 5:21 AM [facility] RDW-SD 72.4(H) 36.0 - 50.0 fL 10/15/2018 5:21 AM [facility] RDW-CV 22.5(H) 11.2 - 14.8 % 10/15/2018 5:21 AM [facility] MPV 9.5 9.3 - 12.8 fL 10/15/2018 5:21 AM [facility] nRBC Absolute 0.00 0 10? 3 /uL 10/15/2018 5:21 AM [facility] nRBC Auto 0.0 0 /100 WBC 10/15/2018 5:21 AM [facility] Neutrophils % 63.9 35.0 - 70.0 % 10/15/2018 5:21 AM [facility] Lymphocytes % 17.0(L) 19.7 - 55.1 % 10/15/2018 5:21 AM [facility] Monocytes % 15.7(H) 3.0 - 15.0 % 10/15/2018 5:21 AM [facility] Eosinophils % 1.7 0.0 - 6.0 % 10/15/2018 5:21 AM [facility] Basophil % 1.4 0.0 - 1.5 % 10/15/2018 5:21 AM [facility] Neutrophils Absolute 5.9 1.6 - 7.0 10? 3 /uL 10/15/2018 5:21 AM [facility] Lymphocyte Absolute 1.6 0.8 - 2.9 10? 3 /uL 10/15/2018 5:21 AM [facility] Monocytes Absolute 1.44(H) 0.14 - 0.66 10? 3 /uL 10/15/2018 5:21 AM [facility] Eosinophils Absolute 0.16 0.00 - 0.45 10? 3 /uL 10/15/2018 5:21 AM [facility] Basophils Absolute 0.13(H) 0.00 - 0.06 10? 3 /uL 10/15/2018 5:21 AM [facility] Immature Granulocytes % 0.3 0.0 - 1.0 % 10/15/2018 5:21 AM [facility] Blood BLOOD SPECIMEN / Unknown Lab Venipuncture / Unknown 10/15/2018 4:54 AM CDT 10/15/2018 5:15 AM CDT Juancho Rhodes MD LAB - HEMATOLOGY ORD ERABLES [place] [id number] [address] [phone] * (ABNORMAL) BASIC METABOLIC PANEL (CALCIUM TOTAL) (10/15/2018 4:54 AM CDT) BUN 4(L) 7 - 26 mg/dL 10/15/2018 5:36 AM [facility] Creatinine 0.6 0.6 - 1.2 mg/dL 10/15/2018 5:36 AM [facility] Sodium 138 136 - 145 mmol/L 10/15/2018 5:36 AM [facility] Potassium 3.7 3.5 - 4.5 mmol/L 10/15/2018 5:36 AM [facility] Chloride 109(H) 98 - 107 mmol/L 10/15/2018 5:36 AM [facility] CO2 17(L) 22 - 29 mmol/L 10/15/2018 5:36 AM [facility] Glucose 105 70 - 115 mg/dL 10/15/2018 5:36 AM [facility] Calcium 8.3(L) 8.4 - 10.2 mg/dL 10/15/2018 5:36 AM [facility] Anion Gap 16 8 - 18 10/15/2018 5:36 AM [facility] BUN/Creatinine Ratio 7 7 - 23 10/15/2018 5:36 AM [facility] Osmolality Calculated 283 270 - 300 mOsm/kg 10/15/2018 5:36 AM [facility] eGFR >60 >60 mL/min/1.7 3 m2 10/15/2018 5:36 AM [facility] Blood BLOOD SPECIMEN / Unknown Lab Venipuncture / Unknown 10/15/2018 4:54 AM CDT 10/15/2018 5:15 AM CDT Juancho Rhodes MD LAB - CHEMISTRY ORDE ALLA [facility] Organization Address City/State/ZIP Co de Phone Number [facility] [address] [phone] * XR WRIST LEFT 2VW (10/14/2018 6:54 AM CDT) Anatomical Region Laterality Modality Wrist / Hand Radiographic Lynette ging 10/14/2018 8:33 AM CDT Impressions 10/14/2018 12:49 PM CDT IMPRESSION: Splinted distal intra-articular radial fracture, unchanged in alignment. Report drafted by Carlos Manuel Avendaño M.D. (resident) This report was approved ??by Carlos Manuel Avendaño ?? on 10/14/2018 11:01 AM . I, Dr. SHAAN ALEJANDRE have personally reviewed and interpreted this examination/study. This report was electronically signed by SHAAN ALEJNADRE ??on 10/14/2018 12:49 PM . Narrative 10/14/2018 12:49 PM CDT EXAMINATION: XR WRIST LEFT 2VW HISTORY: fracture COMPARISON: Left wrist radiograph on 10/02/2018 FINDINGS: A splint obscures the osseous details. The distal intra-articular radial fracture appears unchanged in alignment. Procedure Note Shaan Alejandre MD - 10/14/2018 EXAMINATION: XR WRIST LEFT 2VW HISTORY: fracture COMPARISON: Left wrist radiograph on 10/02/2018 FINDINGS: A splint obscures the osseous details. The distal intra-articular radial fracture appears unchanged in alignment. IMPRESSION: Splinted distal intra-articular radial fracture, unchanged in alignment. Report drafted by Carlos Manuel Avendaño M.D. (resident) This report was approved by Carlos Manuel Avendaño on 10/14/2018 11:[address] SHAAN Londono have personally reviewed and interpreted this examination/study. This report was electronically signed by SHAAN ALEJANDRE on 10/14/201812:49 PM . Lupillo Baxter MD DIAGNOSTIC I MAGING ORDERABLES * PREPARE (CROSSMATCH) RBC UNIT(S), 1 Units (10/14/2018 4:21 AM CDT) Unit Description LR Red Cells [facility] BLOOD BANK LAB Unit ABO O [facility]OD [facility] LAB Unit Rh POS [facility] Product Code RL5 [facility] BLO OD BANK LAB Unit Donor # [id number] [facility] Unit Status released [facility] BLOO D BANK LAB Product Number [id number] [facility] B LOOD BANK LAB Blood Type Barcode 5100 [facility]LOOD [facility] LAB Blood Bank BLOOD SPECIMEN / Unknown 10/14/2018 4:21 AM CDT 10/14/2018 4:21 AM CDT Yusuf Velasco MD LAB - BLOOD BANK ORD ERABLES Performing Organization Address [facility] Co de Phone Number [facility] BLOOD B[facility] LAB [address] [place] [address] * (ABNORMAL) RBC MORPHOLOGY (10/14/2018 4:04 AM CDT) Platelet Estimate Adequate Adequate 019 6:28 AM CDT [facility] Anisocytosis 1+(A) None 10/14/2018 6:28 AM CDT [facility] Hypochromia 1+(A) None 10/14/2018 6:28 AM CDT [facility] Polychromasia 1+(A) None 10/14/2018 6:28 AM CDT [facility] Target Cells 1+(A) None 10/14/2018 6:28 AM CDT [facility] Ovalocytes 1+(A) None 10/14/2018 6:28 AM CDT [facility] Faith Cells 1+(A) None 10/14/2018 6:28 AM CDT [facility] Blood BLOOD SPECIMEN / Unknown Lab Venipuncture / Unknown 10/14/2018 4:04 AM CDT 10/14/2018 4:16 AM CDT Juancho Rhodes MD LAB - HEMATOLOGY ORD ERABLES Performing Organization Address [facility] Co de Phone Number [address] [phone] * PHOSPHORUS BLOOD (10/14/2018 4:04 AM CDT) Phosphorus 3.1 2.3 - 4.7 mg/dL 10/14/2018 5:00 AM CDT [facility] Blood BLOOD SPECIMEN / Unknown Lab Venipuncture / Unknown 10/14/2018 4:04 AM CDT 10/14/2018 4:16 AM CDT Juancho Rhodes MD LAB - CHEMISTRY MIGUEL GOLD Performing Organization Address City/[facility]/ZIP Co de Phone Number [address] [address], [place] [phone] * (ABNORMAL) MAGNESIUM BLOOD (10/14/2018 4:04 AM CDT) Pathologist [facility] Magnesium 1.4(L) 1.6 - 2.6 mg/dL 10/14/2018 5:00 AM [facility] Blood BLOOD SPECIMEN / Unknown Lab Venipuncture / Unknown 10/14/2018 4:04 AM CDT 10/14/2018 4:16 AM CDT Juancho Rhodes MD LAB - CHEMISTRY MIGUEL GOLD [facility] Organization Address City/State/ZIP Co de Phone Number [address] [phone] * (ABNORMAL) CBC W AUTO DIFFERENTIAL (10/14/2018 4:04 AM CDT) [facility] WBC 8.3 3.5 - 10.5 10? 3 /uL 10/14/2018 4:30 AM [facility] RBC 3.64(L) 4.30 - 5.70 10? 6 /uL 10/14/2018 4:30 AM [facility] Hemoglobin 10.0(L) 13.5 - 17.5 g/dL 10/14/2018 4:30 AM [facility] Hematocrit 31.5(L) 39.0 - 50.0 % 10/14/2018 4:30 AM [facility] MCV 86.5 81.0 - 97.0 fL 10/14/2018 4:30 AM [facility] MCH 27.5(L) 28.0 - 34.0 pg 10/14/2018 4:30 AM [facility] MCHC 31.7(L) 32.0 - 36.0 g/dL 10/14/2018 4:30 AM [facility] Platelet Count 279 150 - 400 10? 3 /uL 10/14/2018 4:30 AM [facility] RDW-SD 70.0(H) 36.0 - 50.0 fL 10/14/2018 4:30 AM [facility] RDW-CV 22.3(H) 11.2 - 14.8 % 10/14/2018 4:30 AM [facility] MPV 9.5 9.3 - 12.8 fL 10/14/2018 4:30 AM [facility] nRBC Absolute 0.00 0 10? 3 /uL 10/14/2018 4:30 AM [facility] nRBC Auto 0.0 0 /100 WBC 10/14/2018 4:30 AM [facility] Neutrophils % 67.2 35.0 - 70.0 % 10/14/2018 4:30 AM [facility] Lymphocytes % 15.6(L) 19.7 - 55.1 % 10/14/2018 4:30 AM [facility] Monocytes % 14.8 3.0 - 15.0 % 10/14/2018 4:30 AM [facility] Eosinophils % 0.8 0.0 - 6.0 % 10/14/2018 4:30 AM [facility] Basophil % 1.1 0.0 - 1.5 % 10/14/2018 4:30 AM [facility] Neutrophils Absolute 5.6 1.6 - 7.0 10? 3 /uL 10/14/2018 4:30 AM [facility] Lymphocyte Absolute 1.3 0.8 - 2.9 10? 3 /uL 10/14/2018 4:30 AM [facility] Monocytes Absolute 1.22(H) 0.14 - 0.66 10? 3 /uL 10/14/2018 4:30 AM [facility] Eosinophils Absolute 0.07 0.00 - 0.45 10? 3 /uL 10/14/2018 4:30 AM [facility] Basophils Absolute 0.09(H) 0.00 - 0.06 10? 3 /uL 10/14/2018 4:30 AM [facility] Immature Granulocytes % 0.5 0.0 - 1.0 % 10/14/2018 4:30 AM [facility] Blood BLOOD SPECIMEN / Unknown Lab Venipuncture / Unknown 10/14/2018 4:04 AM CDT 10/14/2018 4:16 AM T Juancho Rhodes MD LAB - HEMATOLOGY ORD ERABLES Performing Organization Address City/[facility]/ZIP Co de Phone Number [facility] [address] [phone] * (ABNORMAL) BASIC METABOLIC PANEL (CALCIUM TOTAL) (10/14/2018 4:04 AM CDT) BUN 4(L) 7 - 26 mg/dL 10/14/2018 5:00 AM [facility] Creatinine 0.6 0.6 - 1.2 mg/dL 10/14/2018 5:00 AM [facility] Sodium 140 136 - 145 mmol/L 10/14/2018 5:00 AM [facility] Potassium 3.1(L) 3.5 - 4.5 mmol/L 10/14/2018 5:00 AM [facility] Chloride 108(H) 98 - 107 mmol/L 10/14/2018 5:00 AM [facility] CO2 20(L) 22 - 29 mmol/L 10/14/2018 5:00 AM [facility] Glucose 119(H) 70 - 115 mg/dL 10/14/2018 5:00 AM [facility] Calcium 8.3(L) 8.4 - 10.2 mg/dL 10/14/2018 5:00 AM [facility] Anion Gap 15 8 - 18 10/14/2018 5:00 AM [facility] BUN/Creatinine Ratio 7 7 - 23 10/14/2018 5:00 AM [facility] Osmolality Calculated 288 270 - 300 mOsm/kg 10/14/2018 5:00 AM [facility] eGFR >60 >60 mL/min/1.7 3 m2 10/14/2018 5:00 AM [facility] Blood BLOOD SPECIMEN / Unknown Lab Venipuncture / Unknown 10/14/2018 4:04 AM CDT 10/14/2018 4:16 AM [facility] Juancho Rhodes MD LAB - CHEMISTRY MIGUEL GOLD [facility] [address] [place] [address] * TYPE + SCREEN PANEL (10/14/2018 4:04 AM CDT) Antibody Screen NEG 9 5:07 AM CDT [facility] BLOOD [facility] LAB ABO Rh O POS 10/14/2018 5:07 AM CDT [facility]OD [facility] Blood Bank BLOOD SPECIMEN / Unknown Lab Venipuncture / Unknown 10/14/2018 4:04 AM CDT 10/14/2018 4:19 AM CDT Yusuf Velasco MD LAB - BLOOD BANK ORD ERABLES [facility] [address] [place] [address], [facility] * XR CHEST 1VW PORTABLE (10/13/2018 4:36 AM CDT) Anatomical Region Laterality Modality Chest Radiographic Lynette ging 10/13/2018 8:18 AM CDT Impressions 10/13/2018 1:11 PM CDT IMPRESSION: 1.Unchanged diffuse bilateral interstitial and airspace opacities, which may be due to pulmonary vascular congestion versus infection. Report drafted by Carlos Manuel Avendaño M.D. (resident) IDr. TANNA have personally reviewed and interpreted this examination/study. This report was electronically signed by TANNA COLON ??on 10/13/2018 1:11 PM . Narrative 10/13/2018 1:11 PM CDT EXAMINATION: XR CHEST 1VW PORTABLE HISTORY: f/u infiltrate COMPARISON: chest radiograph on 10/12/2018 FINDINGS: There are unchanged diffuse bilateral interstitial/airspace opacities. No pleural effusion or pneumothorax is visible. The cardiomediastinal silhouette is stable. Procedure Note Tanna Colon MD - 10/13/2018 EXAMINATION: XR CHEST 1VW PORTABLE HISTORY: f/u infiltrate COMPARISON: chest radiograph on 10/12/2018 FINDINGS: There are unchanged diffuse bilateral interstitial/airspace opacities.No pleural effusion or pneumothorax is visible. The cardiomediastinal silhouette is stable. IMPRESSION: 1.Unchanged diffuse bilateral interstitial and airspace opacities, which may be due to pulmonary vascular congestion versus infection. Report drafted by Carlos Manuel Avendaño M.D. (resident) I, Dr. TANNA COLON have personally reviewed and interpreted this examination/study. This report was electronically signed by TANNA COLON on 10/13/2018 1:11PM . Juancho Rhodes MD DIAGNOSTIC IMAGING O RDERABLES * (ABNORMAL) RBC MORPHOLOGY (10/12/2018 11:59 PM CDT) Anisocytosis 1+(A) None 10/13/2018 1:44 AM CDT [facility] Hypochromia 1+(A) None 10/13/2018 1:44 AM CDT [facility] Polychromasia Few(A) None 10/13/2018 1:44 AM CDT [facility] Target Cells 1+(A) None 10/13/2018 1:44 AM CDT [facility] Schistocytes Rare(A) None 10/13/2018 1:44 AM CDT [facility] Ovalocytes Rare(A) None 10/13/2018 1:44 AM CDT [facility] Faith Cells Few(A) None 10/13/2018 1:44 AM CDT [facility] Blood BLOOD SPECIMEN / Unknown Venipuncture / Unknown 10/12/2018 11:59 PM CDT 10/13/2018 12:07 AM CDT Juancho Rhodes MD LAB - HEMATOLOGY ORD ASHLEY Performing Organization Address City/State/[facility] Co de Phone Number [facility] [address] [place] [address] * PHOSPHORUS BLOOD (10/12/2018 11:59 PM CDT) Phosphorus 2.9 2.3 - 4.7 mg/dL 10/13/2018 12:33 AM CDT [facility] Blood BLOOD SPECIMEN / Unknown Venipuncture / Unknown 10/12/2018 11:59 PM CDT 10/13/2018 12:07 AM CDT Juancho Rhodes MD LAB - CHEMISTRY ORDSukhwinder GOLD [facility] [address] [place] [address] * MAGNESIUM BLOOD (10/12/2018 11:59 PM CDT) Pathologist [facility] Magnesium 2.0 1.6 - 2.6 mg/dL 10/13/2018 1:01 AM [facility] Blood BLOOD SPECIMEN / Unknown Venipuncture / Unknown 10/12/2018 11:59 PM CDT 10/13/2018 12:07 AM CDT Juancho Rhodes MD LAB - CHEMISTRY MIGUEL MAUROEMILE Performing Organization Address [facility]/ZIP Co de Phone Number [address] [phone] * (ABNORMAL) BASIC METABOLIC PANEL (CALCIUM TOTAL) (10/12/2018 11:59 PM CDT) Pathologist [facility] BUN 6(L) 7 - 26 mg/dL 10/13/2018 12:33 AM [facility] Creatinine 0.5(L) 0.6 - 1.2 mg/dL 10/13/2018 12:33 AM [facility] Sodium 137 136 - 145 mmol/L 10/13/2018 12:33 AM [facility] Potassium 3.5 3.5 - 4.5 mmol/L 10/13/2018 12:33 AM [facility] Chloride 105 98 - 107 mmol/L 10/13/2018 12:33 AM [facility] CO2 22 22 - 29 mmol/L 10/13/2018 12:33 AM [facility] Glucose 107 70 - 115 mg/dL 10/13/2018 12:33 AM [facility] Calcium 8.7 8.4 - 10.2 mg/dL 10/13/2018 12:33 AM [facility] Anion Gap 14 8 - 18 10/13/2018 12:33 AM [facility] BUN/Creatinine Ratio 12 7 - 23 10/13/2018 12:33 AM [facility] Osmolality Calculated 282 270 - 300 mOsm/kg 10/13/2018 12:33 AM [facility] eGFR >60 >60 mL/min/1.7 3 m2 10/13/2018 12:33 AM [facility] Blood BLOOD SPECIMEN / Unknown Venipuncture / Unknown 10/12/2018 11:59 PM CDT 10/13/2018 12:07 AM CDT Juancho Rhodes MD LAB - CHEMISTRY MIGUEL GOLD [facility] Organization Address City/State/ZIP Co de Phone Number [facility] [address] [phone] * (ABNORMAL) CBC W AUTO DIFFERENTIAL (10/12/2018 11:59 PM CDT) WBC 9.6 3.5 - 10.5 10? 3 /uL 10/13/2018 1:07 AM [facility] RBC 3.57(L) 4.30 - 5.70 10? 6 /uL 10/13/2018 1:07 AM [facility] Hemoglobin 10.0(L) 13.5 - 17.5 g/dL 10/13/2018 1:07 AM [facility] Hematocrit 31.3(L) 39.0 - 50.0 % 10/13/2018 1:07 AM [facility] MCV 87.7 81.0 - 97.0 fL 10/13/2018 1:07 AM [facility] MCH 28.0 28.0 - 34.0 pg 10/13/2018 1:07 AM [facility] MCHC 31.9(L) 32.0 - 36.0 g/dL 10/13/2018 1:07 AM [facility] Platelet Count 239 150 - 400 10? 3 /uL 10/13/2018 1:07 AM [facility] Comment:Confirmed by repeat analysis. RDW-SD 72.7(H) 36.0 - 50.0 fL 10/13/2018 1:07 AM [facility] RDW-CV 22.5(H) 11.2 - 14.8 % 10/13/2018 1:07 AM [facility] MPV 10.3 9.3 - 12.8 fL 10/13/2018 1:07 AM [facility] nRBC Absolute 0.00 0 10? 3 /uL 10/13/2018 1:07 AM [facility] nRBC Auto 0.0 0 /100 WBC 10/13/2018 1:07 AM [facility] Neutrophils % 70.5(H) 35.0 - 70.0 % 10/13/2018 1:07 AM [facility] Lymphocytes % 13.6(L) 19.7 - 55.1 % 10/13/2018 1:07 AM [facility] Monocytes % 14.1 3.0 - 15.0 % 10/13/2018 1:07 AM [facility] Eosinophils % 0.6 0.0 - 6.0 % 10/13/2018 1:07 AM [facility] Basophil % 0.8 0.0 - 1.5 % 10/13/2018 1:07 AM [facility] Neutrophils Absolute 6.7 1.6 - 7.0 10? 3 /uL 10/13/2018 1:07 AM [facility] Lymphocyte Absolute 1.3 0.8 - 2.9 10? 3 /uL 10/13/2018 1:07 AM [facility] Monocytes Absolute 1.35(H) 0.14 - 0.66 10? 3 /uL 10/13/2018 1:07 AM [facility] Eosinophils Absolute 0.06 0.00 - 0.45 10? 3 /uL 10/13/2018 1:07 AM [facility] Basophils Absolute 0.08(H) 0.00 - 0.06 10? 3 /uL 10/13/2018 1:07 AM [facility] Immature Granulocytes % 0.4 0.0 - 1.0 % 10/13/2018 1:07 AM [facility] Blood BLOOD SPECIMEN / Unknown Venipuncture / Unknown 10/12/2018 11:59 PM CDT 10/13/2018 12:07 AM [facility] Juancho Rhodes MD LAB - HEMATOLOGY ORD ERABLES [facility] [address] [phone] * XR CHEST 1VW PORTABLE (10/12/2018 4:07 PM CDT) Anatomical Region Laterality Modality Chest Radiographic Lynette ging 10/12/2018 8:47 PM CDT Impressions 10/13/2018 1:10 PM CDT FINDINGS/IMPRESSION: There is interval improved aeration of bilateral upper and midlungs. Residual decreased opacities in the upper lungs and diffuse increased interstitial markings are again seen. These have be due to early vascular congestion or pneumonia. There is no significant pleural effusion are pneumothorax. The cardiomediastinal silhouette is normal. Dictated by Javier Tian MD (Resident). Dr. TANNA Londono have personally reviewed and interpreted this examination/study. This report was electronically signed by TANNA COLON ??on 10/13/2018 1:10 PM . Narrative 10/13/2018 1:10 PM CDT EXAMINATION: XR CHEST 1VW PORTABLE HISTORY: hypoxia COMPARISON: 10/12/2018. Procedure Note Tanna Colon MD - 10/13/2018 EXAMINATION: XR CHEST 1VW PORTABLE HISTORY: hypoxia COMPARISON: 10/12/2018. FINDINGS/IMPRESSION: There is interval improved aeration of bilateral upper and midlungs. Residual decreased opacities in the upper lungs and diffuse increased interstitial markings are again seen. These have be due to earlyvascular congestion or pneumonia. There is no significant pleural effusion are pneumothorax. The cardiomediastinal silhouette is normal. Dictated by Javier Tian MD (Resident). Dr. TANNA Londono have personally reviewed and interpreted this examination/study. This report was electronically signed by TANNA COLON on 10/13/2018 1:10PM . Juancho Rhodes MD DIAGNOSTIC IMAGING O RDERABLES * (ABNORMAL) BLOOD GASES ARTERIAL (10/12/2018 1:27 PM CDT) pH Arterial 7.52(H) 7.35 - 7.45 10/12/2018 1:41 PM CDT [facility] pCO2 Arterial 32(L) 35 - 45 mmHg 10/12/2018 1:41 PM CDT [facility] pO2 Arterial 75(L) 77 - 101 mmHg 10/12/2018 1:41 PM [facility] HCO3 Arterial 25.6 22.0 - 26.0 mmol/L 10/12/2018 1:41 PM [facility] TCO2 Arterial 26.6 25.0 - 29.0 mmol/L 10/12/2018 1:41 PM [facility] Base Excess Arterial 3.1(H) -2.0 - 2.0 mmol/L 10/12/2018 1:41 PM [facility] Hemoglobin Arterial 10.9(L) 13.5 - 17.5 g/dL 10/12/2018 1:41 PM [facility] Oxyhemoglobin Arterial 94.2(L) 95.0 - 100.0 % 10/12/2018 1:41 PM [facility] Carboxyhemoglobin 0.3 0.0 - 3.0 % 10/12/2018 1:41 PM [facility] Methemoglobin 0.2 0.0 - 2.0 % 10/12/2018 1:41 PM [facility] FI O2 Arterial 21.0 % 10/12/2018 1:41 PM [facility] Blood, arterial ARTERIAL BLOOD SPECIMEN / Unknown Arterial Puncture / Unknown 10/12/2018 1:27 PM CDT 10/12/2018 1:34 PM CDT Juancho Rhodes MD LAB - BLOOD GASES OR DERABLES Performing Organization Address [facility]/State/[facility] Co de Phone Number [address] [phone] * XR CHEST 1VW PORTABLE (10/12/2018 4:15 AM CDT) Anatomical Region Laterality Modality Chest Radiographic Lynette ging 10/12/2018 9:05 AM CDT Impressions 10/12/2018 10:53 AM CDT IMPRESSION: 1.Unchanged diffuse right lung interstitial and airspace opacities, suggestive of edema and/or pneumonia. 2.Interval increase in diffuse left lung interstitial and airspace opacities, suggestive of edema and/or pneumonia. Report drafted by Carlos Manuel Avendaño M.D. (resident) This report was approved ??by Carlos Manuel Avendaño ?? on 10/12/2018 10:[address] RAMOS Londono MD have personally reviewed and interpreted this examination/study. This report was electronically signed by Dr. RAMOS AGUILAR MD ??on 10/12/2018 10:53 AM . Narrative 10/12/2018 10:53 AM CDT EXAMINATION: XR CHEST 1VW PORTABLE HISTORY: hypoxia COMPARISON: chest radiograph on 10/11/2018 FINDINGS: There are redemonstrated unchanged diffuse right lung interstitial and airspace opacities. Diffuse left lung interstitial and airspace opacities have increased since the prior study. No pleural effusion or pneumothorax is visible. The cardiomediastinal silhouette is stable. Procedure Note Ramos Aguilar MD - 10/12/2018 EXAMINATION: XR CHEST 1VW PORTABLE HISTORY: hypoxia COMPARISON: chest radiograph on 10/11/2018 FINDINGS: There are redemonstrated unchanged diffuse right lung interstitial and airspace opacities. Diffuse left lung interstitial and airspaceopacities have increased since the prior study. No pleural effusion orpneumothorax is visible. The cardiomediastinal silhouette is stable. IMPRESSION: 1.Unchanged diffuse right lung interstitial and airspace opacities, suggestive of edema and/or pneumonia. 2.Interval increase in diffuse left lung interstitial and airspace opacities, suggestive of edema and/or pneumonia. Report drafted by Carlos Manuel Avendaño M.D. (resident) This report was approved by Carlos Manuel Avendaño on 10/12/2018 10:[address] RAMOS Londono MD have personally reviewed and interpretedthis examination/study. This report was electronically signed by Dr. RAMOS AGUILAR MD on 10/12/2018 10:53 AM . Juancho Rhodes MD DIAGNOSTIC IMAGING O RDERABLES * (ABNORMAL) RBC MORPHOLOGY (10/12/2018 12:06 AM CDT) Platelet Estimate Adequate Adequate 019 1:22 AM CDT [facility] Anisocytosis 1+(A) None 10/12/2018 1:22 AM CDT [facility] Poikilocytes Occasional( A) None 10/12/2018 1:22 AM CDT [facility] Hypochromia 1+(A) None 10/12/2018 1:22 AM CDT [facility] Polychromasia Occasional( A) None 10/12/2018 1:22 AM CDT [facility] Target Cells 1+(A) None 10/12/2018 1:22 AM CDT [facility] Schistocytes Occasional( A) None 10/12/2018 1:22 AM CDT [facility] Ovalocytes Occasional( A) None 10/12/2018 1:22 AM CDT [facility] Blood BLOOD SPECIMEN / Unknown Venipuncture / Unknown 10/12/2018 12:06 AM CDT 10/12/2018 12:14 AM CDT Juancho Rhodes MD LAB - HEMATOLOGY ORD ERABLES Performing Organization Address City/[facility]/ZIP Co de Phone Number [address] [phone] * PHOSPHORUS BLOOD (10/12/2018 12:06 AM CDT) Phosphorus 2.8 2.3 - 4.7 mg/dL 10/12/2018 12:51 AM CDT [facility] Blood BLOOD SPECIMEN / Unknown Venipuncture / Unknown 10/12/2018 12:06 AM CDT 10/12/2018 12:14 AM CDT Juancho Rhodes MD LAB - CHEMISTRY ORDE RABEMILE [address] [phone] * (ABNORMAL) MAGNESIUM BLOOD (10/12/2018 12:06 AM CDT) Magnesium 1.2(L) 1.6 - 2.6 mg/dL 10/12/2018 12:58 AM CDT [facility] Blood BLOOD SPECIMEN / Unknown Venipuncture / Unknown 10/12/2018 12:06 AM CDT 10/12/2018 12:14 AM CDT Juancho Rhodes MD LAB - CHEMISTRY MIGUEL GOLD [address] [phone] * (ABNORMAL) BASIC METABOLIC PANEL (CALCIUM TOTAL) (10/12/2018 12:06 AM CDT) BUN 6(L) 7 - 26 mg/dL 10/12/2018 12:57 AM [facility] Creatinine 0.4(L) 0.6 - 1.2 mg/dL 10/12/2018 12:57 AM [facility] Sodium 138 136 - 145 mmol/L 10/12/2018 12:57 AM [facility] Potassium 3.0(L) 3.5 - 4.5 mmol/L 10/12/2018 12:57 AM [facility] Chloride 109(H) 98 - 107 mmol/L 10/12/2018 12:57 AM [facility] CO2 22 22 - 29 mmol/L 10/12/2018 12:57 AM [facility] Glucose 108 70 - 115 mg/dL 10/12/2018 12:57 AM [facility] Calcium 7.3(L) 8.4 - 10.2 mg/dL 10/12/2018 12:57 AM [facility] Anion Gap 10 8 - 18 10/12/2018 12:57 AM [facility] BUN/Creatinine Ratio 15 7 - 23 10/12/2018 12:57 AM [facility] Osmolality Calculated 284 270 - 300 mOsm/kg 10/12/2018 12:57 AM [facility] eGFR >60 >60 mL/min/1.7 3 m2 10/12/2018 12:57 AM [facility] Blood BLOOD SPECIMEN / Unknown Venipuncture / Unknown 10/12/2018 12:06 AM CDT 10/12/2018 12:14 AM CDT Juancho Rhodes MD LAB - CHEMISTRY MIGUEL GOLD [facility] [address] [phone] * (ABNORMAL) CBC W AUTO DIFFERENTIAL (10/12/2018 12:06 AM T) WBC 7.5 3.5 - 10.5 10? 3 /uL 10/12/2018 12:31 AM [facility] RBC 3.17(L) 4.30 - 5.70 10? 6 /uL 10/12/2018 12:31 AM [facility] Hemoglobin 8.9(L) 13.5 - 17.5 g/dL 10/12/2018 12:31 AM [facility] Hematocrit 28.0(L) 39.0 - 50.0 % 10/12/2018 12:31 AM [facility] MCV 88.3 81.0 - 97.0 fL 10/12/2018 12:31 AM [facility] MCH 28.1 28.0 - 34.0 pg 10/12/2018 12:31 AM [facility] MCHC 31.8(L) 32.0 - 36.0 g/dL 10/12/2018 12:31 AM [facility] Platelet Count 155 150 - 400 10? 3 /uL 10/12/2018 12:31 AM [facility] RDW-SD 72.6(H) 36.0 - 50.0 fL 10/12/2018 12:31 AM [facility] RDW-CV 22.2(H) 11.2 - 14.8 % 10/12/2018 12:31 AM [facility] MPV 10.3 9.3 - 12.8 fL 10/12/2018 12:31 AM [facility] nRBC Absolute 0.00 0 10? 3 /uL 10/12/2018 12:31 AM [facility] nRBC Auto 0.0 0 /100 WBC 10/12/2018 12:31 AM [facility] Neutrophils % 73.9(H) 35.0 - 70.0 % 10/12/2018 12:31 AM [facility] Lymphocytes % 10.2(L) 19.7 - 55.1 % 10/12/2018 12:31 AM [facility] Monocytes % 14.2 3.0 - 15.0 % 10/12/2018 12:31 AM [facility] Eosinophils % 0.5 0.0 - 6.0 % 10/12/2018 12:31 AM [facility] Basophil % 0.7 0.0 - 1.5 % 10/12/2018 12:31 AM [facility] Neutrophils Absolute 5.6 1.6 - 7.0 10? 3 /uL 10/12/2018 12:31 AM [facility] Lymphocyte Absolute 0.8 0.8 - 2.9 10? 3 /uL 10/12/2018 12:31 AM [facility] Monocytes Absolute 1.07(H) 0.14 - 0.66 10? 3 /uL 10/12/2018 12:31 AM [facility] Eosinophils Absolute 0.04 0.00 - 0.45 10? 3 /uL 10/12/2018 12:31 AM [facility] Basophils Absolute 0.05 0.00 - 0.06 10? 3 /uL 10/12/2018 12:31 AM [facility] Immature Granulocytes % 0.5 0.0 - 1.0 % 10/12/2018 12:31 AM [facility] Blood BLOOD SPECIMEN / Unknown Venipuncture / Unknown 10/12/2018 12:06 AM CDT 10/12/2018 12:14 AM CDT Juancho Rhodes MD LAB - HEMATOLOGY STACEY RAMIREZ Performing Organization Address City/State/[facility] Co de Phone Number [facility] [address] [place] [address] * AMMONIA (10/12/2018 12:06 AM CDT) Ammonia 31 11 - 64 umol/L 10/12/2018 12:44 AM [facility] Blood BLOOD SPECIMEN / Unknown Lab Venipuncture / Unknown 10/12/2018 12:06 AM CDT 10/12/2018 12:17 AM CDT Juancho Rhodes MD LAB - CHEMISTRY MIGUEL GOLD [facility] [address] [phone] * (ABNORMAL) HEPATIC FUNCTION PANEL (10/12/2018 12:06 AM CDT) [facility] Protein Total 5.0(L) 6.0 - 8.3 g/dL 019 12:51 AM T [facility] Albumin 1.6(L) 3.4 - 5.0 g/dL 10/12/2018 12:51 AM [facility] Bilirubin Total 2.8(H) 0.2 - 1.2 mg/dL 09/17 12:51 AM [facility] Bilirubin Conjugated 2.0(H) 0.0 - 0.5 mg/dL 10/12/2018 12:51 AM [facility] Bilirubin Unconjugated 0.8 Unconjugated Bilirubin is a calculated value: Reference ranges have not been established. mg/dL 10/12/2018 12:51 AM [facility] Alkaline Phosphatase 103 40 - 150 Units/L 10/12/2018 12:51 AM [facility] ALT 26 0 - 55 Units/L 10/12/2018 12:51 AM [facility] AST 105(H) 5 - 34 Units/L 10/12/2018 12:51 AM [facility] Albumin/Globulin Ratio 0.5(L) 1.1 - 2.3 10/12/2018 12:51 AM [facility] Blood BLOOD SPECIMEN / Unknown Lab Venipuncture / Unknown 10/12/2018 12:06 AM CDT 10/12/2018 12:17 AM CDT Juancho Rhodes MD LAB - CHEMISTRY MIGUEL GOLD [facility] [address] [place] [address] * HIV-1 HIV-2 ANTIGEN/ANTIBODY (10/12/2018 12:06 AM CDT) [facility] HIV Antigen/Antibod y 1 & 2 Non-reacti ve Non-react maureen 10/12/2018 1:05 AM CDT [facility] Comment: Neither HIV-1 p24 Antigen nor HIV-1/HIV-2 Antibodies are detected. ? Blood BLOOD SPECIMEN / Unknown Lab Venipuncture / Unknown 10/12/2018 12:06 AM CDT 10/12/2018 12:17 AM CDT Juancho Rhodes MD LAB - HEMATOLOGY ORD ERABLES Performing Organization Address [facility] Co de Phone Number [address] [phone] * SYPHILIS ANTIBODY CASCADING REFLEX (10/12/2018 12:06 AM CDT) Treponema pallidum Antibody Non-react maureen Non-react maureen 10/12/2018 1:05 AM CDT [facility] Comment: No Laboratory evidence of syphilis infection. ?? Note: ??Circulating antibodies may be low or undetectable in early infection. ??If recent exposure is suspected, re-draw sample in 2-4 weeks and repeat testing. Blood BLOOD SPECIMEN / Unknown Lab Venipuncture / Unknown 10/12/2018 12:06 AM CDT 10/12/2018 12:17 AM CDT Juancho Rhodes MD LAB - SEROLOGY ORDER WILLIAN Performing Organization Address [facility] de Phone Number [address] [phone] * VITAMIN B1 (10/12/2018 12:06 AM CDT) Vitamin B1 Whole Blood 175.9 66.5 - 200.0 nmol/L 10/17/2018 6:15 AM CDT [facility] ([facility]) Comment: This test was developed and its performance characteristics determined by [facility]. It has not been cleared or approved by the Food and Drug Administration. Blood BLOOD SPECIMEN / Unknown Lab Venipuncture / Unknown 10/12/2018 12:06 AM CDT 10/12/2018 12:17 AM CDT Narrative [facility] ([facility]) - 10/17/2018 6:15 AM CDT Performed at: ??01 - [facility] [address] ??[id number] Warehouse Freight Handler: Alex Wilcox MD, Phone: ??[phone] Juancho Rhodes MD LAB - CHEMISTRY MIGUEL GOLD [facility] ([facility]) [address] [place] [id number] * HOMOCYSTEINE BLOOD QUANTITATIVE (10/12/2018 12:06 AM CDT) Homocysteine 5.2 4.4 - 16.2 umol/L 10/12/2018 1:24 AM CDT [facility] Blood BLOOD SPECIMEN / Unknown Lab Venipuncture / Unknown 10/12/2018 12:06 AM CDT 10/12/2018 12:17 AM CDT Juancho Rhodes MD LAB - CHEMISTRY MIGUEL GOLD Performing Organization Address [facility]/ZIP Co de Phone Number [address] [phone] * (ABNORMAL) FOLATE (10/12/2018 12:06 AM CDT) Folate 6.5(L) 7.0 - 31.4 ng/mL 10/12/2018 1:59 AM CDT [facility] Blood BLOOD SPECIMEN / Unknown Lab Venipuncture / Unknown 10/12/2018 12:06 AM CDT 10/12/2018 12:17 AM CDT Juancho Rhodes MD LAB - CHEMISTRY MIGUEL GOLD Performing Organization Address [facility]/ZIP Co de Phone Number [address] [phone] * XR CHEST 1VW (10/11/2018 5:12 AM [...] by Carlos Manuel Avendaño M.D. (resident) Dr. MICHELE Londono M.D. have personally reviewed and interpreted this examination/study. This report was electronically signed by MICHELE SINGH M.D. ??on 10/11/2018 11:48 AM . Narrative 10/11/2018 11:48 AM CDT EXAMINATION: XR CHEST 1VW HISTORY: intubation COMPARISON: chest radiograph on 10/10/2018 Procedure Note Michele Singh MD - 10/11/2018 EXAMINATION: XR CHEST 1VW [...] by Carlos Manuel Avendaño M.D. (resident) Dr. MICHELE Londono M.D. have personally reviewed and interpreted this examination/study. This report was electronically signed by MICHELE SINGH M.D. on 10/11/2018 11:48 AM . Mora Bailey MD DIAGNOSTIC IMAGING O RDERABLES * (ABNORMAL) RBC MORPHOLOGY (10/11/2018 12:04 AM CDT) Platelet Estimate Adequate Adequate 019 1:49 AM CDT [facility] Anisocytosis 1+(A) None 10/11/2018 1:49 AM CDT [facility] Hypochromia 1+(A) None 10/11/2018 1:49 AM CDT [facility] Polychromasia Occasional( A) None 10/11/2018 1:49 AM CDT [facility] Target Cells 1+(A) None 10/11/2018 1:49 AM CDT [facility] Ovalocytes Occasional( A) None 10/11/2018 1:49 AM CDT [facility] Blood BLOOD SPECIMEN / Unknown Venipuncture / Unknown 10/11/2018 12:04 AM CDT 10/11/2018 12:16 AM CDT Juancho Rhodes MD LAB - HEMATOLOGY ORD ERABLES [address] [phone] * PHOSPHORUS BLOOD (10/11/2018 12:04 AM CDT) Pathologist [facility] Phosphorus 3.6 2.3 - 4.7 mg/dL 10/11/2018 12:36 AM CDT [facility] Blood BLOOD SPECIMEN / Unknown Venipuncture / Unknown 10/11/2018 12:04 AM CDT 10/11/2018 12:16 AM CDT Juancho Rhodes MD LAB - CHEMISTRY ORDE RABEMILE [address] [phone] * (ABNORMAL) MAGNESIUM BLOOD (10/11/2018 12:04 AM CDT) Pathologist [facility] Magnesium 1.4(L) 1.6 - 2.6 mg/dL 10/11/2018 12:36 AM CDT [facility] Blood BLOOD SPECIMEN / Unknown Venipuncture / Unknown 10/11/2018 12:04 AM CDT 10/11/2018 12:16 AM CDT Juancho Rhodes MD LAB - CHEMISTRY MIGUEL GOLD Performing Organization Address City/[facility] Co de Phone Number [facility] [address] [phone] * (ABNORMAL) BASIC METABOLIC PANEL (CALCIUM TOTAL) (10/11/2018 12:04 AM CDT) BUN 5(L) 7 - 26 mg/dL 10/11/2018 12:36 AM [facility] Creatinine 0.4(L) 0.6 - 1.2 mg/dL 10/11/2018 12:36 AM [facility] Sodium 135(L) 136 - 145 mmol/L 10/11/2018 12:36 AM [facility] Potassium 3.5 3.5 - 4.5 mmol/L 10/11/2018 12:36 AM [facility] Chloride 101 98 - 107 mmol/L 10/11/2018 12:36 AM [facility] CO2 26 22 - 29 mmol/L 10/11/2018 12:36 AM [facility] Glucose 142(H) 70 - 115 mg/dL 10/11/2018 12:36 AM [facility] Calcium 7.9(L) 8.4 - 10.2 mg/dL 10/11/2018 12:36 AM [facility] Anion Gap 12 8 - 18 10/11/2018 12:36 AM [facility] BUN/Creatinine Ratio 13 7 - 23 10/11/2018 12:36 AM [facility] Osmolality Calculated 280 270 - 300 mOsm/kg 10/11/2018 12:36 AM [facility] eGFR >60 >60 mL/min/1.7 3 m2 10/11/2018 12:36 AM [facility] Blood BLOOD SPECIMEN / Unknown Venipuncture / Unknown 10/11/2018 12:04 AM CDT 10/11/2018 12:16 AM CDT Juancho Rhodes MD LAB - CHEMISTRY MIGUEL GOLD [facility] [address] [phone] * (ABNORMAL) CBC W AUTO DIFFERENTIAL (10/11/2018 12:04 AM [facility]) WBC 5.4 3.5 - 10.5 10? 3 /uL 10/11/2018 1:11 AM [facility] RBC 3.49(L) 4.30 - 5.70 10? 6 /uL 10/11/2018 1:11 AM [facility] Hemoglobin 9.7(L) 13.5 - 17.5 g/dL 10/11/2018 1:11 AM [facility] Hematocrit 30.8(L) 39.0 - 50.0 % 10/11/2018 1:11 AM [facility] MCV 88.3 81.0 - 97.0 fL 10/11/2018 1:11 AM [facility] MCH 27.8(L) 28.0 - 34.0 pg 10/11/2018 1:11 AM [facility] MCHC 31.5(L) 32.0 - 36.0 g/dL 10/11/2018 1:11 AM [facility] Platelet Count 157 150 - 400 10? 3 /uL 10/11/2018 1:11 AM [facility] RDW-SD 70.9(H) 36.0 - 50.0 fL 10/11/2018 1:11 AM [facility] RDW-CV 22.0(H) 11.2 - 14.8 % 10/11/2018 1:11 AM [facility] MPV 10.7 9.3 - 12.8 fL 10/11/2018 1:11 AM [facility] nRBC Absolute 0.00 0 10? 3 /uL 10/11/2018 1:11 AM [facility] nRBC Auto 0.0 0 /100 WBC 10/11/2018 1:11 AM [facility] Neutrophils % 54.7 35.0 - 70.0 % 10/11/2018 1:11 AM [facility] Lymphocytes % 20.1 19.7 - 55.1 % 10/11/2018 1:11 AM [facility] Monocytes % 19.8(H) 3.0 - 15.0 % 10/11/2018 1:11 AM [facility] Eosinophils % 3.3 0.0 - 6.0 % 10/11/2018 1:11 AM [facility] Basophil % 1.7(H) 0.0 - 1.5 % 10/11/2018 1:11 AM [facility] Neutrophils Absolute 3.0 1.6 - 7.0 10? 3 /uL 10/11/2018 1:11 AM [facility] Lymphocyte Absolute 1.1 0.8 - 2.9 10? 3 /uL 10/11/2018 1:11 AM [facility] Monocytes Absolute 1.07(H) 0.14 - 0.66 10? 3 /uL 10/11/2018 1:11 AM [facility] Eosinophils Absolute 0.18 0.00 - 0.45 10? 3 /uL 10/11/2018 1:11 AM [facility] Basophils Absolute 0.09(H) 0.00 - 0.06 10? 3 /uL 10/11/2018 1:11 AM [facility] Immature Granulocytes % 0.4 0.0 - 1.0 % 10/11/2018 1:11 AM [facility] Blood BLOOD SPECIMEN / Unknown Venipuncture / Unknown 10/11/2018 12:04 AM CDT 10/11/2018 12:16 AM CDT Juancho Rhodes MD LAB - HEMATOLOGY ORD ERABLES [facility] [address] [place] [address] * EKG 12-LEAD (10/10/2018 4:26 PM CDT) Ventricular Rate 64 BPM [facility] Atrial Rate 64 BPM [facility] P-R Interval 170 ms [facility] QRS Duration ms 92 ms [facility] Q-T Interval ms 444 ms [facility] QTC Calculation (Bezet) 458 ms [facility] Calculated P [place] 25 degrees [facility] Calculated R [place] 35 degrees [facility] Calculated T [place] 29 degrees [facility] Interpretation EKG NORMAL SINUS RHYTHM NORMAL ECG WHEN COMPARED WITH ECG OF 03-OCT-2018 14:57, NO SIGNIFICANT CHANGE WAS FOUND Confirmed by Reji HERNANDEZ, KEIRA ([id number]), map editor KACI ARANDA ([id number]) on 10/16/2018 1:49:31 PM [facility] 10/10/2018 4:26 PM CDT 10/16/2018 1:49 PM CDT Juancho Rhodes MD ECG ORDERABLES [facility] * XR CHEST 1VW PORTABLE (10/10/2018 3:11 PM CDT) Anatomical Region Laterality Modality Chest Radiographic Lynette ging 10/10/2018 3:19 PM CDT Impressions 10/10/2018 4:34 PM CDT FINDINGS/IMPRESSION: The enteric tube courses to the stomach with the tip and side-port within the stomach. The endotracheal tube terminates in the midthoracic trachea. There is a small left pleural effusion, unchanged from the prior exam. There is no right pleural effusion or pneumothorax. A trace left pleural effusion is suspected. The lungs remain hypoinflated. Bibasilar opacity, greater on the left, could represent atelectasis and/or airspace disease. The heart size is normal. The mediastinal contours are unchanged. The stomach is now distended. Dictated by Harshil Lopez MD (resident). I, Dr. MICHELE SINGH M.D. have personally reviewed and interpreted this examination/study. This report was electronically signed by MICHELE SINGH M.D. ??on 10/10/2018 4:34 PM . Narrative 10/10/2018 4:34 PM CDT EXAMINATION: Chest radiograph, AP portable HISTORY: intubated COMPARISON: Chest radiograph 10/10/2018 at 4:13 AM Procedure Note Michele Singh MD - 10/10/2018 EXAMINATION: Chest radiograph, AP portable HISTORY: intubated COMPARISON: Chest radiograph 10/10/2018 at 4:13 AM FINDINGS/IMPRESSION: The enteric tube courses to the stomach with the tip and side-portwithin the stomach. The endotracheal tube terminates in the midthoracictrachea. There is a small left pleural effusion, unchanged from the prior exam. There is no right pleural effusion or pneumothorax. A trace left pleural effusion is suspected. The lungs remain hypoinflated. Bibasilar opacity, greater on the left, could represent atelectasis and/or airspacedisease. The heart size is normal. The mediastinal contours are unchanged. The stomach is now distended. Dictated by Harshil Lopez MD (resident). IDr. MICHELE M.D. have personally reviewed and interpreted this examination/study. This report was electronically signed by MICHELE SINGH M.D. on 10/10/2018 4:34 PM . Juancho Rhodes MD DIAGNOSTIC IMAGING O RDERABLES * XR CHEST 1VW PORTABLE (10/10/2018 4:20 AM CDT) Anatomical Region Laterality Modality Chest Radiographic Lynette ging 10/10/2018 8:07 AM CDT Impressions 10/10/2018 3:00 PM CDT IMPRESSION: 1.Slight growth of small right pleural effusion with associated compressive atelectasis/airspace disease. 2.Unchanged trace left pleural effusion. 3.Left retrocardiac opacification, suggestive of atelectasis/airspace disease. Report drafted by Carlos Manuel Avendaño M.D. (resident) This report was approved ??by Carlos Manuel Avendaño ?? on 10/10/2018 2:[address] MICHELE Londono M.D. have personally reviewed and interpreted this examination/study. This report was electronically signed by MICHELE SINGH M.D. ??on 10/10/2018 3:00 PM . Narrative 10/10/2018 3:00 PM CDT EXAMINATION: XR CHEST 1VW PORTABLE HISTORY: intubated COMPARISON: chest radiograph on 10/09/2018 FINDINGS: An endotracheal tube terminates in the midthoracic trachea. An enteric tube extends below the diaphragm out of the field of view. There has been interval growth of a right small pleural effusion, with associated compressive atelectasis/airspace disease. There is an unchanged trace left pleural effusion. Left retrocardiac opacification may represent atelectasis/airspace disease. No pneumothorax is visible. The cardiomediastinal silhouette is stable. Procedure Note Michele Singh MD - 10/10/2018 EXAMINATION: XR CHEST 1VW PORTABLE HISTORY: intubated COMPARISON: chest radiograph on 10/09/2018 FINDINGS: An endotracheal tube terminates in the midthoracic trachea. An enteric tube extends below the diaphragm out of the field of view. There has been interval growth of a right small pleural effusion, with associated compressive atelectasis/airspace disease. There is anunchanged trace left pleural effusion. Left retrocardiac opacification mayrepresent atelectasis/airspace disease. No pneumothorax is visible. The cardiomediastinal silhouette is stable. IMPRESSION: 1.Slight growth of small right pleural effusion with associated compressive atelectasis/airspace disease. 2.Unchanged trace left pleural effusion. 3.Left retrocardiac opacification, suggestive of atelectasis/airspace disease. Report drafted by Carlos Manuel Avendaño M.D. (resident) This report was approved by Carlos Manuel Avendaño on 10/10/2018 2:25 PM . I, Dr. MICHELE SINGH M.D. have personally reviewed and interpreted this examination/study. This report was electronically signed by MICHELE SINGH M.D. on 10/10/2018 3:00 PM . Juancho Rhodes MD DIAGNOSTIC IMAGING O RDERABLES * (ABNORMAL) DIFFERENTIAL MANUAL (10/10/2018 12:03 AM CDT) WBC (corrected for NRBC) 5.3 10? 3 /uL 10/10/2018 1:37 AM [facility] Total Cell Count 100 10/11/19 19 1:37 AM [facility] Neutrophils Absolute Manual 3.92 1.60 - 7.00 10? 3 /uL 10/10/2018 1:37 AM [facility] Comment:(BANDS+SEGS) x WBC = NEUT # (ANC) Lymphocyte Absolute Manual 0.58(L) 0.80 - 2.90 10? 3 /uL 10/10/2018 1:37 AM [facility] Monocytes Absolute Manual 0.64 0.14 - 0.66 10? 3 /uL 10/10/2018 1:37 AM [facility] Eosinophils Absolute Manual 0.11 0.00 - 0.22 10? 3 /uL 10/10/2018 1:37 AM [facility] Neutrophil % Manual 74(H) 30 - 60 % 10/10/2018 1:37 AM [facility] Lymphocyte % Manual 11(L) 20 - 45 % 10/10/2018 1:37 AM [facility] Monocytes % Manual 12(H) 2 - 10 % 10/10/2018 1:37 AM [facility] Eosinophils % Manual 2 1 - 6 % 10/10/2018 1:37 AM [facility] Atypical Lymphocyte % Manual 1(H) 0 % 10/10/2018 1:37 AM [facility] Platelet Estimate Slightly Decreased(A ) Adequate 10/10/2018 1:37 AM [facility] Anisocytosis 1+(A) None 10/10/2018 1:37 AM [facility] Hypochromia 1+(A) None 10/10/2018 1:37 AM [facility] Polychromasia Few(A) None 10/10/2018 1:37 AM [facility] Target Cells 1+(A) None 10/10/2018 1:37 AM [facility] Ovalocytes 1+(A) None 10/10/2018 1:37 AM [facility] Blood BLOOD SPECIMEN / Unknown Venipuncture / Unknown 10/10/2018 12:03 AM CDT 10/10/2018 12:32 AM CDT Juancho Rhodes MD LAB - HEMATOLOGY ORD ERABLES [facility] [address] [phone] * PHOSPHORUS BLOOD (10/10/2018 12:03 AM CDT) Phosphorus 3.2 2.3 - 4.7 mg/dL 10/10/2018 1:00 AM T [facility] Blood BLOOD SPECIMEN / Unknown Venipuncture / Unknown 10/10/2018 12:03 AM CDT 10/10/2018 12:37 AM CDT Juancho Rhodes MD LAB - CHEMISTRY ORDSukhwinder GOLD Performing Organization Address [facility]/ZIP Co de Phone Number [address] [phone] * (ABNORMAL) MAGNESIUM BLOOD (10/10/2018 12:03 AM CDT) Magnesium 1.5(L) 1.6 - 2.6 mg/dL 10/10/2018 12:59 AM [facility] Blood BLOOD SPECIMEN / Unknown Venipuncture / Unknown 10/10/2018 12:03 AM CDT 10/10/2018 12:37 AM CDT Juancho Rhodes MD LAB - CHEMISTRY MIGUEL GOLD Performing Organization Address [facility]/ZIP Co de Phone Number [address] [phone] * (ABNORMAL) BASIC METABOLIC PANEL (CALCIUM TOTAL) (10/10/2018 12:03 AM CDT) BUN 6(L) 7 - 26 mg/dL 10/10/2018 1:00 AM [facility] Creatinine 0.4(L) 0.6 - 1.2 mg/dL 10/10/2018 1:00 AM [facility] Sodium 136 136 - 145 mmol/L 10/10/2018 1:00 AM [facility] Potassium 3.5 3.5 - 4.5 mmol/L 10/10/2018 1:00 AM [facility] Chloride 107 98 - 107 mmol/L 10/10/2018 1:00 AM [facility] CO2 22 22 - 29 mmol/L 10/10/2018 1:00 AM [facility] Glucose 128(H) 70 - 115 mg/dL 10/10/2018 1:00 AM [facility] Calcium 7.4(L) 8.4 - 10.2 mg/dL 10/10/2018 1:00 AM [facility] Anion Gap 11 8 - 18 10/10/2018 1:00 AM [facility] BUN/Creatinine Ratio 15 7 - 23 10/10/2018 1:00 AM [facility] Osmolality Calculated 281 270 - 300 mOsm/kg 10/10/2018 1:00 AM [facility] eGFR >60 >60 mL/min/1.7 3 m2 10/10/2018 1:00 AM [facility] Blood BLOOD SPECIMEN / Unknown Venipuncture / Unknown 10/10/2018 12:03 AM CDT 10/10/2018 12:37 AM CDT Juancho Rhodes MD LAB - CHEMISTRY MIGUEL GOLD [facility] Organization Address City/State/[facility] Co de Phone Number [address] [phone] * (ABNORMAL) CBC W AUTO DIFFERENTIAL (10/10/2018 12:03 AM CDT) WBC 5.3 3.5 - 10.5 10? 3 /uL 10/10/2018 1:11 AM [facility] RBC 3.18(L) 4.30 - 5.70 10? 6 /uL 10/10/2018 1:11 AM [facility] Hemoglobin 8.9(L) 13.5 - 17.5 g/dL 10/10/2018 1:11 AM [facility] Hematocrit 28.1(L) 39.0 - 50.0 % 10/10/2018 1:11 AM [facility] MCV 88.4 81.0 - 97.0 fL 10/10/2018 1:11 AM [facility] MCH 28.0 28.0 - 34.0 pg 10/10/2018 1:11 AM [facility] MCHC 31.7(L) 32.0 - 36.0 g/dL 10/10/2018 1:11 AM [facility] Platelet Count 129(L) 150 - 400 10? 3 /uL 10/10/2018 1:11 AM CDT [facility] RDW-SD 72.7(H) 36.0 - 50.0 fL 10/10/2018 1:11 AM CDT [facility] RDW-CV 22.5(H) 11.2 - 14.8 % 10/10/2018 1:11 AM CDT [facility] MPV 11.1 9.3 - 12.8 fL 10/10/2018 1:11 AM CDT [facility] nRBC Absolute 0.00 0 10? 3 /uL 10/10/2018 1:11 AM CDT [facility] nRBC Auto 0.0 0 /100 WBC 10/10/2018 1:11 AM CDT [facility] Blood BLOOD SPECIMEN / Unknown Venipuncture / Unknown 10/10/2018 12:03 AM CDT 10/10/2018 12:32 AM CDT Juancho Rhodes MD LAB - HEMATOLOGY ORD ERABLES [address] [phone] * XR CHEST 1VW PORTABLE (10/09/2018 4:27 AM CDT) Anatomical Region Laterality Modality Chest Radiographic Lynette ging 10/09/2018 10:3 4 AM CDT Impressions 10/10/2018 1:39 PM CDT IMPRESSION: 1.Unchanged trace left pleural effusion and unchanged left retrocardiac opacification, suggestive of atelectasis/airspace disease. Report drafted by Carlos Manuel Avendaño M.D. (resident) This report was approved ??by Carlos Manuel Avendaño ?? on 10/10/2018 11:41 AM . I, Dr. MICHELE SINGH M.D. have personally reviewed and interpreted this examination/study. This report was electronically signed by MICHELE SINGH M.D. ??on 10/10/2018 1:39 PM . Narrative 10/10/2018 1:39 PM CDT EXAMINATION: XR CHEST 1VW PORTABLE HISTORY: trauma pt intubated COMPARISON: chest radiograph on 10/08/2018 FINDINGS: An endotracheal tube terminates in the midthoracic trachea. An enteric tube tip and side-port are in the gastric body. A trace left pleural effusion is unchanged, with left retrocardiac opacification which may represent atelectasis/airspace disease. No pneumothorax is visible. The cardiomediastinal silhouette is stable. Procedure Note Michele Singh MD - 10/10/2018 EXAMINATION: XR CHEST 1VW PORTABLE HISTORY: trauma pt intubated COMPARISON: chest radiograph on 10/08/2018 FINDINGS: An endotracheal tube terminates in the midthoracic trachea. An enteric tube tip and side-port are in the gastric body. A trace left pleural effusion is unchanged, with left retrocardiac opacification which may represent atelectasis/airspace disease. No pneumothorax is visible. The cardiomediastinal silhouette is stable. IMPRESSION: 1.Unchanged trace left pleural effusion and unchanged left retrocardiac opacification, suggestive of atelectasis/airspace disease. Report drafted by Carlos Manuel Avendaño M.D. (resident) This report was approved by Carlos Manuel Avendaño on 10/10/2018 11:41 AM . I, Dr. MICHELE SINGH M.D. have personally reviewed and interpreted this examination/study. This report was electronically signed by MICHELE SINGH M.D. on 10/10/2018 1:39 PM . Henrietta Landers DO DIAGNOSTIC IMAGING O RDERABLES * (ABNORMAL) DIFFERENTIAL MANUAL (10/09/2018 12:00 AM CDT) WBC (corrected for NRBC) 5.5 10? 3 /uL 10/09/2018 12:58 AM T [facility] Total Cell Count 100 10/10/19 19 12:58 AM [facility] Neutrophils Absolute Manual 3.85 1.60 - 7.00 10? 3 /uL 10/09/2018 12:58 AM [facility] Comment:(BANDS+SEGS) x WBC = NEUT # (ANC) Lymphocyte Absolute Manual 0.66(L) 0.80 - 2.90 10? 3 /uL 10/09/2018 12:58 AM CDT [facility] Monocytes Absolute Manual 0.77(H) 0.14 - 0.66 10? 3 /uL 10/09/2018 12:58 AM [facility] Eosinophils Absolute Manual 0.11 0.00 - 0.22 10? 3 /uL 10/09/2018 12:58 AM [facility] Basophil Absolute Manual 0.11(H) 0.00 - 0.06 10? 3 /uL 10/09/2018 12:58 AM [facility] Band % Manual 2 0 - 10 % 10/09/2018 12:58 AM [facility] Neutrophil % Manual 68(H) 30 - 60 % 10/09/2018 12:58 AM [facility] Lymphocyte % Manual 12(L) 20 - 45 % 10/09/2018 12:58 AM [facility] Monocytes % Manual 14(H) 2 - 10 % 10/09/2018 12:58 AM [facility] Eosinophils % Manual 2 1 - 6 % 10/09/2018 12:58 AM [facility] Basophils % Manual 2 0 - 3 % 10/09/2018 12:58 AM [facility] Platelet Estimate Adequate Adequate 10/09/2018 12:58 AM [facility] Anisocytosis 1+(A) None 10/09/2018 12:58 AM [facility] Hypochromia 1+(A) None 10/09/2018 12:58 AM [facility] Ovalocytes Few(A) None 10/09/2018 12:58 AM [facility] Blood BLOOD SPECIMEN / Unknown Venipuncture / Unknown 10/09/2018 12:00 AM CDT 10/09/2018 12:12 AM CDT Juancho Rhodes MD LAB - HEMATOLOGY ORD ERABLES [place] [id number] [address] [phone] * (ABNORMAL) PHOSPHORUS BLOOD (10/09/2018 12:00 AM CDT) Phosphorus 2.1(L) 2.3 - 4.7 mg/dL 10/09/2018 12:32 AM [facility] Blood BLOOD SPECIMEN / Unknown Venipuncture / Unknown 10/09/2018 12:00 AM CDT 10/09/2018 12:12 AM CDT Juancho Rhodes MD LAB - CHEMISTRY MIGUEL GOLD Performing Organization Address [facility] Co de Phone Number [address] [phone] * (ABNORMAL) MAGNESIUM BLOOD (10/09/2018 12:00 AM CDT) Magnesium 1.1(L) 1.6 - 2.6 mg/dL 10/09/2018 12:32 AM T [facility] Blood BLOOD SPECIMEN / Unknown Venipuncture / Unknown 10/09/2018 12:00 AM CDT 10/09/2018 12:12 AM CDT Juancho Rhodes MD LAB - CHEMISTRY MIGUEL GOLD Performing Organization Address [facility]/ZIP Co de Phone Number [address] [phone] * (ABNORMAL) BASIC METABOLIC PANEL (CALCIUM TOTAL) (10/09/2018 12:00 AM CDT) BUN 6(L) 7 - 26 mg/dL 10/09/2018 12:32 AM [facility] Creatinine 0.4(L) 0.6 - 1.2 mg/dL 10/09/2018 12:32 AM [facility] Sodium 136 136 - 145 mmol/L 10/09/2018 12:32 AM [facility] Potassium 3.0(L) 3.5 - 4.5 mmol/L 10/09/2018 12:32 AM [facility] Chloride 110(H) 98 - 107 mmol/L 10/09/2018 12:32 AM [facility] CO2 20(L) 22 - 29 mmol/L 10/09/2018 12:32 AM [facility] Glucose 120(H) 70 - 115 mg/dL 10/09/2018 12:32 AM [facility] Calcium 6.9(L) 8.4 - 10.2 mg/dL 10/09/2018 12:32 AM [facility] Anion Gap 9 8 - 18 10/09/2018 12:32 AM [facility] BUN/Creatinine Ratio 15 7 - 23 10/09/2018 12:32 AM [facility] Osmolality Calculated 281 270 - 300 mOsm/kg 10/09/2018 12:32 AM [facility] eGFR >60 >60 mL/min/1.7 3 m2 10/09/2018 12:32 AM [facility] Blood BLOOD SPECIMEN / Unknown Venipuncture / Unknown 10/09/2018 12:00 AM CDT 10/09/2018 12:12 AM T Juancho Rhodes MD LAB - CHEMISTRY MIGUEL GOLD [facility] Organization Address City/State/[facility] Co de Phone Number [facility] [address] [place] [address] * (ABNORMAL) CBC W AUTO DIFFERENTIAL (10/09/2018 12:00 AM T) WBC 5.5 3.5 - 10.5 10? 3 /uL 10/09/2018 12:26 AM [facility] RBC 3.05(L) 4.30 - 5.70 10? 6 /uL 10/09/2018 12:26 AM [facility] Hemoglobin 8.4(L) 13.5 - 17.5 g/dL 10/09/2018 12:26 AM [facility] Hematocrit 26.8(L) 39.0 - 50.0 % 10/09/2018 12:26 AM [facility] MCV 87.9 81.0 - 97.0 fL 10/09/2018 12:26 AM [facility] MCH 27.5(L) 28.0 - 34.0 pg 10/09/2018 12:26 AM [facility] MCHC 31.3(L) 32.0 - 36.0 g/dL 10/09/2018 12:26 AM [facility] Platelet Count 102(L) 150 - 400 10? 3 /uL 10/09/2018 12:26 AM [facility] RDW-SD 73.2(H) 36.0 - 50.0 fL 10/09/2018 12:26 AM [facility] RDW-CV 22.8(H) 11.2 - 14.8 % 10/09/2018 12:26 AM [facility] MPV 10.2 9.3 - 12.8 fL 10/09/2018 12:26 AM [facility] nRBC Absolute 0.00 0 10? 3 /uL 10/09/2018 12:26 AM [facility] nRBC Auto 0.0 0 /100 WBC 10/09/2018 12:26 AM [facility] Blood BLOOD SPECIMEN / Unknown Venipuncture / Unknown 10/09/2018 12:00 AM T 10/09/2018 12:12 AM T Juancho Rhodes MD LAB - HEMATOLOGY ORD ERABLES Performing Organization Address City/State/[facility] Co de Phone Number [address] [phone] * (ABNORMAL) BLOOD GASES ARTERIAL (10/08/2018 9:26 AM [facility]) pH Arterial 7.48(H) 7.35 - 7.45 10/08/2018 9:58 AM [facility] pCO2 Arterial 34(L) 35 - 45 mmHg 10/08/2018 9:58 AM [facility] pO2 Arterial 106(H) 77 - 101 mmHg 10/08/2018 9:58 AM [facility] HCO3 Arterial 24.9 22.0 - 26.0 mmol/L 10/08/2018 9:58 AM [facility] TCO2 Arterial 26.0 25.0 - 29.0 mmol/L 10/08/2018 9:58 AM [facility] Base Excess Arterial 1.6 -2.0 - 2.0 mmol/L 10/08/2018 9:58 AM [facility] Hemoglobin Arterial 9.7(L) 13.5 - 17.5 g/dL 10/08/2018 9:58 AM [facility] Oxyhemoglobin Arterial 97.2 95.0 - 100.0 % 10/08/2018 9:58 AM CDT [facility] Carboxyhemoglobin 0.2 0.0 - 3.0 % 10/08/2018 9:58 AM CDT [facility] Methemoglobin 0.6 0.0 - 2.0 % 10/08/2018 9:58 AM CDT [facility] FI O2 Arterial 40.0 % 10/08/2018 9:58 AM CDT [facility] Blood, arterial ARTERIAL BLOOD SPECIMEN / Unknown Arterial Puncture / Unknown 10/08/2018 9:26 AM CDT 10/08/2018 9:55 AM CDT Henrietta Landers DO LAB - BLOOD GASES OR DERABLES Performing Organization Address City/State/[facility] Co de Phone Number [address] [phone] * XR CHEST 1VW PORTABLE (10/08/2018 5:50 AM CDT) Anatomical Region Laterality Modality Chest Radiographic Lynette ging 10/08/2018 9:29 AM CDT Impressions 10/08/2018 2:56 PM CDT IMPRESSION: 1.Bibasilar and left retrocardiac atelectasis/airspace disease. 2.Trace left pleural effusion. Report drafted by Carlos Manuel Avendaño M.D. (resident) This report was approved ??by Carlos Manuel Avendaño ?? on 10/08/2018 2:41 PM . I, Dr. Alexandria HILLS M.D. have personally reviewed and interpreted this examination/study. This report was electronically signed by Alexandria HILLS M.D. ??on 10/08/2018 2:56 PM . Narrative 10/08/2018 2:56 PM CDT EXAMINATION: XR CHEST 1VW PORTABLE HISTORY: trauma pt intubated COMPARISON: chest radiograph on 10/07/2018 FINDINGS: An endotracheal tube terminates in the midthoracic trachea. An enteric tube extends below the diaphragm out of the field of view. There is bibasilar and left retrocardiac atelectasis/airspace disease. A trace left pleural effusion is seen. No pneumothorax is visible. The cardiomediastinal silhouette is stable. No acute fractures are seen. Procedure Note Yulisa Hills MD - 10/08/2018 EXAMINATION: XR CHEST 1VW PORTABLE HISTORY: trauma pt intubated COMPARISON: chest radiograph on 10/07/2018 FINDINGS: An endotracheal tube terminates in the midthoracic trachea. An enteric tube extends below the diaphragm out of the field of view. There is bibasilar and left retrocardiac atelectasis/airspace disease. A trace left pleural effusion is seen. No pneumothorax is visible. The cardiomediastinal silhouette is stable. No acute fractures are seen. IMPRESSION: 1.Bibasilar and left retrocardiac atelectasis/airspace disease. 2.Trace left pleural effusion. Report drafted by Carlos Manuel Avendaño M.D. (resident) This report was approved by Carlos Manuel Avendaño on 10/08/2018 2:[address] Alexandria Londono M.D. have personally reviewed and interpretedthis examination/study. This report was electronically signed by Alexandria HILLS M.D. on 10/08/2018 2:56 PM . Henrietta Landers DO DIAGNOSTIC IMAGING O RDERABLES * (ABNORMAL) RBC MORPHOLOGY (10/08/2018 12:14 AM CDT) Platelet Estimate Decreased (A) Adequate 10/08/2018 12:57 AM CDT [facility] Anisocytosis 1+(A) None 10/08/2018 12:57 AM CDT [facility] Hypochromia 1+(A) None 10/08/2018 12:57 AM T [facility] Polychromasia Few(A) None 10/08/2018 12:57 AM [facility] Target Cells 1+(A) None 10/08/2018 12:57 AM T [facility] [place] Cells 1+(A) None 10/08/2018 12:57 AM [facility] Blood BLOOD SPECIMEN / Unknown Venipuncture / Unknown 10/08/2018 12:14 AM CDT 10/08/2018 12:32 AM CDT Juancho Rhodes MD LAB - HEMATOLOGY ORD ASHLEY Performing Organization Address [facility]/ZIP Co de Phone Number [address] [phone] * PHOSPHORUS BLOOD (10/08/2018 12:14 AM CDT) Phosphorus 2.8 2.3 - 4.7 mg/dL 10/08/2018 1:03 AM CDT [facility] Blood BLOOD SPECIMEN / Unknown Venipuncture / Unknown 10/08/2018 12:14 AM CDT 10/08/2018 12:32 AM CDT Juancho Rhodes MD LAB - CHEMISTRY MIGUEL GOLD Performing Organization Address [facility] Co de Phone Number [address] [phone] * MAGNESIUM BLOOD (10/08/2018 12:14 AM CDT) Magnesium 2.2 1.6 - 2.6 mg/dL 10/08/2018 1:03 AM CDT [facility] Blood BLOOD SPECIMEN / Unknown Venipuncture / Unknown 10/08/2018 12:14 AM CDT 10/08/2018 12:32 AM CDT Juancho Rhodes MD LAB - CHEMISTRY MIGUEL GOLD [address] [phone] * (ABNORMAL) BASIC METABOLIC PANEL (CALCIUM TOTAL) (10/08/2018 12:14 AM CDT) BUN 7 7 - 26 mg/dL 10/08/2018 1:03 AM CDT [facility] Creatinine 0.5(L) 0.6 - 1.2 mg/dL 10/08/2018 1:03 AM CDT [facility] Sodium 133(L) 136 - 145 mmol/L 10/08/2018 1:03 AM [facility] Potassium 4.4 3.5 - 4.5 mmol/L 10/08/2018 1:03 AM [facility] Chloride 102 98 - 107 mmol/L 10/08/2018 1:03 AM [facility] CO2 25 22 - 29 mmol/L 10/08/2018 1:03 AM [facility] Glucose 147(H) 70 - 115 mg/dL 10/08/2018 1:03 AM [facility] Calcium 8.0(L) 8.4 - 10.2 mg/dL 10/08/2018 1:03 AM [facility] Anion Gap 10 8 - 18 10/08/2018 1:03 AM [facility] BUN/Creatinine Ratio 14 7 - 10/08/2018 1:03 AM [facility] Osmolality Calculated 277 270 - 300 mOsm/kg 10/08/2018 1:03 AM [facility] eGFR >60 >60 mL/min/1.7 3 m2 10/08/2018 1:03 AM [facility] Blood BLOOD SPECIMEN / Unknown Venipuncture / Unknown 10/08/2018 12:14 AM CDT 10/08/2018 12:32 AM T Juancho Rhodes MD LAB - CHEMISTRY MIGUEL GOLD [facility] Organization Address City/State/[facility] Co de Phone Number [facility] [address] [place] [address] * (ABNORMAL) CBC W AUTO DIFFERENTIAL (10/08/2018 12:14 AM CDT) WBC 5.2 3.5 - 10.5 10? 3 /uL 10/08/2018 12:36 AM [facility] RBC 3.26(L) 4.30 - 5.70 10? 6 /uL 10/08/2018 12:36 AM [facility] Hemoglobin 9.0(L) 13.5 - 17.5 g/dL 10/08/2018 12:36 AM [facility] Hematocrit 28.3(L) 39.0 - 50.0 % 10/08/2018 12:36 AM [facility] MCV 86.8 81.0 - 97.0 fL 10/08/2018 12:36 AM [facility] MCH 27.6(L) 28.0 - 34.0 pg 10/08/2018 12:36 AM [facility] MCHC 31.8(L) 32.0 - 36.0 g/dL 10/08/2018 12:36 AM [facility] Platelet Count 101(L) 150 - 400 10? 3 /uL 10/08/2018 12:36 AM [facility] RDW-SD 70.2(H) 36.0 - 50.0 fL 10/08/2018 12:36 AM [facility] RDW-CV 22.5(H) 11.2 - 14.8 % 10/08/2018 12:36 AM [facility] MPV 10.4 9.3 - 12.8 fL 10/08/2018 12:36 AM [facility] nRBC Absolute 0.00 0 10? 3 /uL 10/08/2018 12:36 AM [facility] nRBC Auto 0.0 0 /100 WBC 10/08/2018 12:36 AM [facility] Neutrophils % 64.5 35.0 - 70.0 % 10/08/2018 12:36 AM [facility] Lymphocytes % 14.0(L) 19.7 - 55.1 % 10/08/2018 12:36 AM [facility] Monocytes % 18.4(H) 3.0 - 15.0 % 10/08/2018 12:36 AM [facility] Eosinophils % 1.9 0.0 - 6.0 % 10/08/2018 12:36 AM [facility] Basophil % 0.8 0.0 - 1.5 % 10/08/2018 12:36 AM [facility] Neutrophils Absolute 3.4 1.6 - 7.0 10? 3 /uL 10/08/2018 12:36 AM [facility] Lymphocyte Absolute 0.7(L) 0.8 - 2.9 10? 3 /uL 10/08/2018 12:36 AM [facility] Monocytes Absolute 0.96(H) 0.14 - 0.66 10? 3 /uL 10/08/2018 12:36 AM CDT [facility] Eosinophils Absolute 0.10 0.00 - 0.45 10? 3 /uL 10/08/2018 12:36 AM CDT [facility] Basophils Absolute 0.04 0.00 - 0.06 10? 3 /uL 10/08/2018 12:36 AM CDT [facility] Immature Granulocytes % 0.4 0.0 - 1.0 % 10/08/2018 12:36 AM CDT [facility] Blood BLOOD SPECIMEN / Unknown Venipuncture / Unknown 10/08/2018 12:14 AM CDT 10/08/2018 12:32 AM CDT Juancho Rhodes MD LAB - HEMATOLOGY ORD ERABLES Performing Organization Address City/[facility] Co de Phone Number [facility] [address] [phone] * TYPE + SCREEN PANEL (10/08/2018 12:14 AM CDT) Antibody Screen NEG 9 1:31 AM CDT [facility] ABO Rh O POS 10/08/2018 1:31 AM CDT [facility] Blood Bank BLOOD SPECIMEN / Unknown Venipuncture / Unknown 10/08/2018 12:14 AM CDT 10/08/2018 12:43 AM CDT Reilly Freeman MD LAB - BLOOD BANK ORD ERABLES [facility] [address] [place] [address] * (ABNORMAL) CULTURE SPUTUM+GRAM STAIN (10/07/2018 11:30 AM CDT) Culture Heavy Staphylococcus aureus(A) MANJIT 10/09/2018 7:31 AM CDT [facility] Culture Heavy normal oropharyngeal izabella MANJIT 10/09/2018 7:31 AM CDT [facility] Gram Stain <10 per low power field Squamous epithelial cells 10/09/2018 7:31 AM CDT [facility] Gram Stain >= 25 per low power field Polymorphonuclear cells 10/09/2018 7:[address] [facility] Gram Stain Heavy Gram-positive cocci 10/09/2018 7:[address] [facility] Microbiology SPUTUM / Unknown Collection / Unknown 10/07/2018 11:30 AM CDT 10/07/2018 12:11 PM CDT Narrative Organism Antibiotic Method Susceptibility Staphylococcus aureus Ciprofloxacin MANJIT <=0.5 ug/mL: Susceptible Staphylococcus aureus Clindamycin MANJIT 0.25 ug/mL: Susceptible Staphylococcus aureus Doxycycline MANJIT <=0.5 ug/mL: Susceptible Staphylococcus aureus Erythromycin MANJIT <=0.25 ug/mL: Susceptible Staphylococcus aureus Gentamicin MANJIT <=0.5 ug/mL: Susceptible Staphylococcus aureus Inducible Clindamy ho Resistance MANJIT NEG ug/mL: Neg Staphylococcus aureus Levofloxacin MANJIT 0.25 ug/mL: Susceptible Staphylococcus aureus Linezolid MANJIT 2 ug/mL: Susceptible Staphylococcus aureus Oxacillin MANJIT 0.5 ug/mL: Susceptible Staphylococcus aureus Tetracycline MANJIT <=1 ug/mL: Susceptible Staphylococcus aureus Trimethoprim-sulfa methoxa zole MANJIT <=10 ug/mL: Susceptible Staphylococcus aureus Vancomycin MANJIT <=0.5 ug/mL: Susceptible Comment:Methicillin-suscepti ble Staphylococci are susceptible to oxacillin, nafcillin, cloxacillin,dicloxacillin, beta lactam/betalactamase inhibitor combinations, cephalosporins including cefazolin and carbapenems. Henrietta Landers DO LAB - MICROBIOLOGY O RDERABLES [facility] [address] [address] [place] [phone] * XR CHEST 1VW PORTABLE (10/07/2018 9:26 AM CDT) Anatomical Region Laterality Modality Chest Radiographic Lynette ging 10/07/2018 11:4 4 AM CDT Impressions 10/07/2018 9:33 PM CDT IMPRESSION: Slight increase in right basilar atelectasis; otherwise no change from prior exam. Dictated by Harshil Lopez M.D. (residential service technician). I, Dr. RAMOS NINO M.D. have personally reviewed and interpreted this examination/study. This report was electronically signed by RAMOS NINO M.D. ??on 10/07/2018 9:33 PM . Narrative 10/07/2018 9:33 PM CDT EXAMINATION: XR CHEST 1VW PORTABLE HISTORY: trauma pt s/p intubation on vent COMPARISON: Chest radiograph on 10/07/2018. FINDINGS: An endotracheal tube terminates in the midthoracic trachea. The enteric tube tip and side-port are both within the stomach. Multiple leads and electrodes overlie the patient. Compared to the prior exam, right basilar opacity has increased and likely represents atelectasis. Minimal left basilar atelectasis is again seen. Haziness of the left costophrenic angle may represent a trace left pleural effusion. The lungs are hypoinflated. There is no visible pneumothorax on this semiupright exam. There is no focal consolidation. The cardiomediastinal silhouette is normal. Procedure Note Ramos Nino MD - 10/07/2018 EXAMINATION: XR CHEST 1VW PORTABLE HISTORY: trauma pt s/p intubation on vent COMPARISON: Chest radiograph on 10/07/2018. FINDINGS: An endotracheal tube terminates in the midthoracic trachea. The enteric tube tip and side-port are both within the stomach. Multiple leads and electrodes overlie the patient. Compared to the prior exam, right basilar opacity has increased andlikely represents atelectasis. Minimal left basilar atelectasis is again seen. Haziness of the left costophrenic angle may represent a trace leftpleural effusion. The lungs are hypoinflated. There is no visible pneumothoraxon this semiupright exam. There is no focal consolidation. The cardiomediastinal silhouette is normal. IMPRESSION: Slight increase in right basilar atelectasis; otherwise no change from prior exam. Dictated by Harshil Lopez M.D. (residential service technician). I, Dr. RAMOS NINO M.D. have personally reviewed and interpretedthis examination/study. This report was electronically signed by RAMOS NINO M.D. on 10/07/2018 9:33 PM . Henrietta Landers DO DIAGNOSTIC IMAGING O RDERABLES * (ABNORMAL) BLOOD GASES ARTERIAL (10/07/2018 9:00 AM CDT) pH Arterial 7.48(H) 7.35 - 7.45 10/07/2018 9:10 AM [facility] pCO2 Arterial 37 35 - 45 mmHg 10/07/2018 9:10 AM [facility] pO2 Arterial 118(H) 77 - 101 mmHg 10/07/2018 9:10 AM [facility] HCO3 Arterial 26.6(H) 22.0 - 26.0 mmol/L 10/07/2018 9:10 AM [facility] TCO2 Arterial 27.7 25.0 - 29.0 mmol/L 10/07/2018 9:10 AM [facility] Base Excess Arterial 3.0(H) -2.0 - 2.0 mmol/L 10/07/2018 9:10 AM [facility] Hemoglobin Arterial 8.8(L) 13.5 - 17.5 g/dL 10/07/2018 9:10 AM [facility] Oxyhemoglobin Arterial 97.5 95.0 - 100.0 % 10/07/2018 9:10 AM [facility] Carboxyhemoglobin 0.3 0.0 - 3.0 % 10/07/2018 9:10 AM [facility] Methemoglobin 0.6 0.0 - 2.0 % 10/07/2018 9:10 AM [facility] FI O2 Arterial 40.0 % 10/07/2018 9:10 AM [facility] Blood, arterial ARTERIAL BLOOD SPECIMEN / Unknown Arterial Puncture / Unknown 10/07/2018 9:00 AM CDT 10/07/2018 9:05 AM T Henrietta Landers DO LAB - BLOOD GASES OR DERABLES [address] [phone] * XR CHEST 1VW PORTABLE (10/07/2018 4:27 AM CDT) Anatomical Region Laterality Modality Chest Radiographic Lynette ging 10/07/2018 8:01 AM CDT Impressions 10/07/2018 10:56 AM CDT IMPRESSION: Left basilar airspace disease. ET tube terminates 5.3 cm above the aris Report drafted by Carlos Manuel Avendaño M.D. (resident) Dr. AN Londono M.D. have personally reviewed and interpreted this examination/study. This report was electronically signed by AN RICO M.D. ??on 10/07/2018 10:56 AM . Narrative 10/07/2018 10:56 AM CDT EXAMINATION: XR CHEST 1VW PORTABLE HISTORY: concern for ETT displacement COMPARISON: chest radiograph on 10/06/2018 FINDINGS: An endotracheal tube terminates in the midthoracic trachea, 5.3 cm above the aris. Left basilar airspace disease is noted. No pleural effusion, or pneumothorax is seen. The cardiomediastinal silhouette is normal. No acute fractures are seen. Procedure Note An Rico MD - 10/07/2018 EXAMINATION: XR CHEST 1VW PORTABLE HISTORY: concern for ETT displacement COMPARISON: chest radiograph on 10/06/2018 FINDINGS: An endotracheal tube terminates in the midthoracic trachea, 5.3 cm above the aris. Left basilar airspace disease is noted. No pleural effusion, or pneumothorax is seen. The cardiomediastinal silhouette is normal. No acute fractures are seen. IMPRESSION: Left basilar airspace disease. ET tube terminates 5.3 cm above thecarina Report drafted by Carlos Manuel Avendaño M.D. (resident) Dr. AN Londono M.D. have personally reviewed and interpreted this examination/study. This report was electronically signed by AN RICO M.D. on 10/07/2018 10:56 AM . Juancho Rhodes MD DIAGNOSTIC IMAGING O RDERABLES * XR ABDOMEN KUB PORTABLE (10/07/2018 4:26 AM CDT) Anatomical Region Laterality Modality Radiographic Lynette ging 10/07/2018 8:02 AM CDT Impressions 10/07/2018 10:59 AM CDT FINDINGS/IMPRESSION: Enteric tube has been repositioned since the prior exam. The side-port and tip are both within the stomach. Dictated by Harshil Lopez MD (residential service technician). Dr. AN Londono M.D. have personally reviewed and interpreted this examination/study. This report was electronically signed by AN RICO M.D. ??on 10/07/2018 10:59 AM . Narrative 10/07/2018 10:59 AM CDT EXAMINATION: XR ABDOMEN KUB PORTABLE DATE: 10/07/2018 4:26 AM HISTORY: replacement of OG COMPARISON: 10/07/2018 Procedure Note An Rico MD - 10/07/2018 EXAMINATION: XR ABDOMEN KUB PORTABLE DATE: 10/07/2018 4:26 AM HISTORY: replacement of OG COMPARISON: 10/07/2018 FINDINGS/IMPRESSION: Enteric tube has been repositioned since the prior exam. The side-portand tip are both within the stomach. Dictated by Harshil Lopez MD (residential service technician). Dr. AN Londono M.D. have personally reviewed and interpreted this examination/study. This report was electronically signed by AN RICO M.D. on 10/07/2018 10:59 AM . Juancho Rhodes MD DIAGNOSTIC IMAGING O RDERABLES * (ABNORMAL) RBC MORPHOLOGY (10/07/2018 12:07 AM CDT) Platelet Estimate Decreased (A) Adequate 10/07/2018 1:38 AM CDT [facility] Anisocytosis 1+(A) None 10/07/2018 1:38 AM CDT [facility] Hypochromia Occasiona l(A) None 10/07/2018 1:38 AM CDT [facility] Polychromasia Occasiona l(A) None 10/07/2018 1:38 AM CDT [facility] Target Cells 1+(A) None 10/07/2018 1:38 AM CDT [facility] Blood BLOOD SPECIMEN / Unknown Venipuncture / Unknown 10/07/2018 12:07 AM CDT 10/07/2018 12:10 AM CDT Juancho Rhodes MD LAB - HEMATOLOGY ORD ERALUIS Performing Organization Address City/[facility]/ZIP Co de Phone Number [address] [phone] * PHOSPHORUS BLOOD (10/07/2018 12:07 AM CDT) Phosphorus 3.2 2.3 - 4.7 mg/dL 10/07/2018 12:39 AM CDT [facility] Blood BLOOD SPECIMEN / Unknown Venipuncture / Unknown 10/07/2018 12:07 AM CDT 10/07/2018 12:10 AM CDT Juancho Rhodes MD LAB - CHEMISTRY MIGUEL GOLD Performing Organization Address [facility]/ZIP Co de Phone Number [address] [phone] * MAGNESIUM BLOOD (10/07/2018 12:07 AM CDT) Magnesium 2.0 1.6 - 2.6 mg/dL 10/07/2018 12:39 AM CDT [facility] Blood BLOOD SPECIMEN / Unknown Venipuncture / Unknown 10/07/2018 12:07 AM CDT 10/07/2018 12:10 AM CDT Juancho Rhodes MD LAB - CHEMISTRY ORDSukhwinder GOLD Performing Organization Address [facility]/ZIP Co de Phone Number [address] [phone] * (ABNORMAL) BASIC METABOLIC PANEL (CALCIUM TOTAL) (10/07/2018 12:07 AM CDT) BUN 8 7 - 26 mg/dL 10/07/2018 12:39 AM CDT [facility] Creatinine 0.5(L) 0.6 - 1.2 mg/dL 10/07/2018 12:39 AM CDT [facility] Sodium 131(L) 136 - 145 mmol/L 10/07/2018 12:39 AM CDT [facility] Potassium 3.7 3.5 - 4.5 mmol/L 10/07/2018 12:39 AM [facility] Chloride 96(L) 98 - 107 mmol/L 10/07/2018 12:39 AM [facility] CO2 26 22 - 29 mmol/L 10/07/2018 12:39 AM [facility] Glucose 101 70 - 115 mg/dL 10/07/2018 12:39 AM [facility] Calcium 8.5 8.4 - 10.2 mg/dL 10/07/2018 12:39 AM [facility] Anion Gap 13 8 - 18 10/07/2018 12:39 AM [facility] BUN/Creatinine Ratio 16 7 - 23 10/07/2018 12:39 AM [facility] Osmolality Calculated 270 270 - 300 mOsm/kg 10/07/2018 12:39 AM [facility] eGFR >60 >60 mL/min/1.7 3 m2 10/07/2018 12:39 AM [facility] Blood BLOOD SPECIMEN / Unknown Venipuncture / Unknown 10/07/2018 12:07 AM T 10/07/2018 12:10 AM T Juancho Rhodes MD LAB - CHEMISTRY MIGUEL [facility] Organization Address City/State/ZIP Co de Phone Number [address] [phone] * (ABNORMAL) CBC W AUTO DIFFERENTIAL (10/07/2018 12:07 AM [facility]) WBC 6.7 3.5 - 10.5 10? 3 /uL 10/07/2018 12:22 AM [facility] RBC 3.39(L) 4.30 - 5.70 10? 6 /uL 10/07/2018 12:22 AM [facility] Hemoglobin 9.3(L) 13.5 - 17.5 g/dL 10/07/2018 12:22 AM [facility] Hematocrit 29.4(L) 39.0 - 50.0 % 10/07/2018 12:22 AM [facility] MCV 86.7 81.0 - 97.0 fL 10/07/2018 12:22 AM [facility] MCH 27.4(L) 28.0 - 34.0 pg 10/07/2018 12:22 AM [facility] MCHC 31.6(L) 32.0 - 36.0 g/dL 10/07/2018 12:22 AM [facility] Platelet Count 85(L) 150 - 400 10? 3 /uL 10/07/2018 12:22 AM [facility] RDW-SD 67.8(H) 36.0 - 50.0 fL 10/07/2018 12:22 AM [facility] RDW-CV 22.2(H) 11.2 - 14.8 % 10/07/2018 12:22 AM [facility] MPV 10.3 9.3 - 12.8 fL 10/07/2018 12:22 AM [facility] nRBC Absolute 0.00 0 10? 3 /uL 10/07/2018 12:22 AM [facility] nRBC Auto 0.0 0 /100 WBC 10/07/2018 12:22 AM [facility] Neutrophils % 70.2(H) 35.0 - 70.0 % 10/07/2018 12:22 AM [facility] Lymphocytes % 13.5(L) 19.7 - 55.1 % 10/07/2018 12:22 AM [facility] Monocytes % 13.7 3.0 - 15.0 % 10/07/2018 12:22 AM [facility] Eosinophils % 1.7 0.0 - 6.0 % 10/07/2018 12:22 AM [facility] Basophil % 0.6 0.0 - 1.5 % 10/07/2018 12:22 AM [facility] Neutrophils Absolute 4.7 1.6 - 7.0 10? 3 /uL 10/07/2018 12:22 AM [facility] Lymphocyte Absolute 0.9 0.8 - 2.9 10? 3 /uL 10/07/2018 12:22 AM [facility] Monocytes Absolute 0.91(H) 0.14 - 0.66 10? 3 /uL 10/07/2018 12:22 AM [facility] Eosinophils Absolute 0.11 0.00 - 0.45 10? 3 /uL 10/07/2018 12:22 AM CDT [facility] Basophils Absolute 0.04 0.00 - 0.06 10? 3 /uL 10/07/2018 12:22 AM CDT [facility] Immature Granulocytes % 0.3 0.0 - 1.0 % 10/07/2018 12:22 AM CDT [facility] Blood BLOOD SPECIMEN / Unknown Venipuncture / Unknown 10/07/2018 12:07 AM CDT 10/07/2018 12:10 AM CDT Juancho Rhodes MD LAB - HEMATOLOGY ORD ERABLES [facility] [address] [place] [address] * XR CHEST 1VW PORTABLE (10/06/2018 11:50 PM CDT) Anatomical Region Laterality Modality Chest Radiographic Lynette ging 10/07/2018 7:27 AM CDT Impressions 10/07/2018 10:51 AM CDT IMPRESSION: Patchy bibasilar atelectasis/infiltrate, left greater than right, without significant change Report drafted by Carlos Manuel Avendaño M.D. (resident) IDr. AN M.D. have personally reviewed and interpreted this examination/study. This report was electronically signed by AN RICO M.D. ??on 10/07/2018 10:51 AM . Narrative 10/07/2018 10:51 AM CDT EXAMINATION: XR CHEST 1VW PORTABLE HISTORY: ett advance COMPARISON: chest radiograph on 10/06/2018 FINDINGS: An endotracheal tube terminates in the midthoracic trachea. An enteric tube extends below the diaphragm out of the field of view. There is left basilar and minimal right basilar atelectasis/airspace disease. The cardiomediastinal silhouette is normal. No acute fractures are seen. Procedure Note An Rico MD - 10/07/2018 EXAMINATION: XR CHEST 1VW PORTABLE HISTORY: ett advance COMPARISON: chest radiograph on 10/06/2018 FINDINGS: An endotracheal tube terminates in the midthoracic trachea. An enteric tube extends below the diaphragm out of the field of view. There is left basilar and minimal right basilar atelectasis/airspace disease. The cardiomediastinal silhouette is normal. No acute fractures are seen. IMPRESSION: Patchy bibasilar atelectasis/infiltrate, left greater than right,without significant change Report drafted by Carlos Manuel Avendaño M.D. (resident) Dr. AN Londono M.D. have personally reviewed and interpreted this examination/study. This report was electronically signed by AN RICO M.D. on 10/07/2018 10:51 AM . Juancho Rhodes MD DIAGNOSTIC IMAGING O RDERABLES * CT HEAD WO CONTRAST (10/06/2018 3:27 PM CDT) Anatomical Region Laterality Modality Head Computed Tomogra phy 10/07/2018 7:24 AM CDT Impressions 10/07/2018 12:26 PM CDT IMPRESSION: No acute intracranial hemorrhage, midline shift, or significant mass effect. This report was approved ??by Lili Almaraz ?? on 10/07/2018 10:[address] ALY Londono have personally reviewed and interpreted this examination/study. This report was electronically signed by ALY MATHEWS ??on 10/07/2018 12:26 PM . Narrative 10/07/2018 12:26 PM CDT EXAMINATION: Computed tomography (CT) of the head without contrast HISTORY: DELIRIUM COMPARISON: ??CT head from 10/02/2018 TECHNIQUE: CT of the head was performed without contrast according to standard protocol. FINDINGS: No acute intra- or extra-axial hemorrhage is identified. There is mild cerebral volume loss with associated ex vacuo ventricular dilatation. The basal cisterns are patent. No mass effect or midline shift is seen. The chavis-white matter differentiation is normal. Mild periventricular white matter hypoattenuation is nonspecific, but can be seen in the setting of chronic small vessel ischemic disease. There is mild right periorbital and right facial swelling, decreased compared to the prior. The orbital contents are otherwise unremarkable. There is frothy, layering fluid in the bilateral paranasal sinuses. The visualized portions of the paranasal sinuses, middle ear cavities, and mastoids are aerated. Redemonstrated bilateral nasal bone fractures. Procedure Note Aly Mathews MD - 10/07/2018 EXAMINATION: Computed tomography (CT) of the head without contrast HISTORY: DELIRIUM COMPARISON: CT head from 10/02/2018 TECHNIQUE: CT of the head was performed without contrast according to standard protocol. FINDINGS: No acute intra- or extra-axial hemorrhage is identified. There is mild cerebral volume loss with associated ex vacuo ventricular dilatation.The basal cisterns are patent. No mass effect or midline shift is seen. The chavis-white matter differentiation is normal. Mild periventricular white matter hypoattenuation is nonspecific, but can be seen in the setting of chronic small vessel ischemic disease. There is mild right periorbital and right facial swelling, decreased compared to the prior. The orbital contents are otherwise unremarkable. There is frothy, layering fluid in the bilateral paranasal sinuses. The visualized portions of the paranasal sinuses, middle ear cavities, and mastoids are aerated. Redemonstrated bilateral nasal bone fractures. IMPRESSION: No acute intracranial hemorrhage, midline shift, or significant mass effect. This report was approved by Lili Almaraz on 10/07/2018 10:[address] ALY Londono have personally reviewed and interpreted this examination/study. This report was electronically signed by ALY MATHEWS on10/07/2018 12:26 PM . Juancho Rhodes MD CT ORDERABLES * XR ABDOMEN KUB PORTABLE (10/06/2018 9:35 AM CDT) Anatomical Region Laterality Modality Radiographic Lynette ging 10/06/2018 9:39 AM CDT Impressions 10/06/2018 2:44 PM CDT IMPRESSION: A gastric tube terminates in the gastric body. Report dictated by Efren Bauman MD (residential service technician). Dr. JONAS Londono have personally reviewed and interpreted this examination/study. This report was electronically signed by JONAS DONATO ??on 10/06/2018 2:44 PM . Narrative 10/06/2018 2:44 PM CDT EXAMINATION: XR ABDOMEN KUB PORTABLE HISTORY: Enteric tube placement COMPARISON: No prior study is available for comparison. Procedure Note Jonas Donato MD - 10/06/2018 EXAMINATION: XR ABDOMEN KUB PORTABLE HISTORY: Enteric tube placement COMPARISON: No prior study is available for comparison. IMPRESSION: A gastric tube terminates in the gastric body. Report dictated by Efren Bauman MD (residential service technician). Dr. JONAS Londono have personally reviewed and interpreted this examination/study. This report was electronically signed by JONAS DONATO on 10/06/2018 2:44 PM . Juancho Rhodes MD DIAGNOSTIC IMAGING O RDERABLES * XR CHEST 1VW PORTABLE (10/06/2018 9:34 AM CDT) Anatomical Region Laterality Modality Chest Radiographic Lynette ging 10/06/2018 9:34 AM CDT Impressions 10/06/2018 2:44 PM CDT FINDINGS/IMPRESSION: Endotracheal tube terminates in the midthoracic trachea. A gastric tube follows the course of this esophagus into the stomach with its tip out of field of view. There is no focal consolidation, pleural effusion, or pneumothorax. The cardiac silhouette is normal. The mediastinal silhouette is normal. Report dictated by Efren Bauman M.D. (residential service technician). Dr. JONAS Londono have personally reviewed and interpreted this examination/study. This report was electronically signed by JONAS DONATO ??on 10/06/2018 2:44 PM . Narrative 10/06/2018 2:44 PM CDT Technique EXAMINATION: XR CHEST 1VW PORTABLE, 10/06/2018 9:34 AM HISTORY: Post intubation COMPARISON: 10/02/2018 Procedure Note Jonas Donato MD - 10/06/2018 Technique EXAMINATION: XR CHEST 1VW PORTABLE, 10/06/2018 9:34 AM HISTORY: Post intubation COMPARISON: 10/02/2018 FINDINGS/IMPRESSION: Endotracheal tube terminates in the midthoracic trachea. A gastric tube follows the course of this esophagus into the stomach with its tip outof field of view. There is no focal consolidation, pleural effusion, or pneumothorax. The cardiac silhouette is normal. The mediastinal silhouette is normal. Report dictated by Efren Bauman M.D. (residential service technician). I, Dr. JONAS DONATO have personally reviewed and interpreted this examination/study. This report was electronically signed by JONAS DONATO on 10/06/2018 2:44 PM . Juancho Rhodes MD DIAGNOSTIC IMAGING O RDERABLES * (ABNORMAL) BLOOD GASES ARTERIAL (10/06/2018 9:18 AM [facility]) pH Arterial 7.36 7.35 - 7.45 10/06/2018 9:23 AM [facility] pCO2 Arterial 45 35 - 45 mmHg 10/06/2018 9:23 AM [facility] pO2 Arterial 143(H) 77 - 101 mmHg 10/06/2018 9:23 AM [facility] HCO3 Arterial 24.9 22.0 - 26.0 mmol/L 10/06/2018 9:23 AM [facility] TCO2 Arterial 26.3 25.0 - 29.0 mmol/L 10/06/2018 9:23 AM [facility] Base Excess Arterial -0.6 -2.0 - 2.0 mmol/L 10/06/2018 9:23 AM [facility] Hemoglobin Arterial 8.9(L) 13.5 - 17.5 g/dL 10/06/2018 9:23 AM [facility] Oxyhemoglobin Arterial 97.8 95.0 - 100.0 % 10/06/2018 9:23 AM [facility] Carboxyhemoglobin 0.2 0.0 - 3.0 % 10/06/2018 9:23 AM [facility] Methemoglobin 0.4 0.0 - 2.0 % 10/06/2018 9:23 AM [facility] FI O2 Arterial 40.0 % 10/06/2018 9:23 AM [facility] Blood, arterial ARTERIAL BLOOD SPECIMEN / Unknown Arterial Puncture / Unknown 10/06/2018 9:18 AM CDT 10/06/2018 9:20 AM CDT Juancho Rhodes MD LAB - BLOOD GASES OR DERABLES [address] [phone] * (ABNORMAL) RBC MORPHOLOGY (10/06/2018 12:11 AM CDT) Pathologist [facility] Platelet Estimate Decreased (A) Adequate 10/06/2018 1:04 AM CDT [facility] Anisocytosis 1+(A) None 10/06/2018 1:04 AM CDT [facility] Hypochromia 1+(A) None 10/06/2018 1:04 AM CDT [facility] Polychromasia 1+(A) None 10/06/2018 1:04 AM CDT [facility] Target Cells 1+(A) None 10/06/2018 1:04 AM CDT [facility] Tear Drop Cells Few(A) None 9 1:04 AM T [facility] Blood BLOOD SPECIMEN / Unknown Venipuncture / Unknown 10/06/2018 12:11 AM CDT 10/06/2018 12:13 AM CDT Juancho Rhodes MD LAB - HEMATOLOGY ORD ERABLES Performing Organization Address [facility]/ZIP Co de Phone Number [address] [phone] * (ABNORMAL) CBC W AUTO DIFFERENTIAL (10/06/2018 12:11 AM CDT) WBC 7.4 3.5 - 10.5 10? 3 /uL 10/06/2018 12:21 AM CDT [facility] RBC 3.48(L) 4.30 - 5.70 10? 6 /uL 10/06/2018 12:21 AM CDT [facility] Hemoglobin 9.4(L) 13.5 - 17.5 g/dL 10/06/2018 12:21 AM CDT [facility] Hematocrit 29.8(L) 39.0 - 50.0 % 10/06/2018 12:21 AM T [facility] MCV 85.6 81.0 - 97.0 fL 10/06/2018 12:21 AM [facility] MCH 27.0(L) 28.0 - 34.0 pg 10/06/2018 12:21 AM [facility] MCHC 31.5(L) 32.0 - 36.0 g/dL 10/06/2018 12:21 AM [facility] Platelet Count 69(L) 150 - 400 10? 3 /uL 10/06/2018 12:21 AM [facility] RDW-SD 65.0(H) 36.0 - 50.0 fL 10/06/2018 12:21 AM [facility] RDW-CV 21.3(H) 11.2 - 14.8 % 10/06/2018 12:21 AM [facility] MPV 9.9 9.3 - 12.8 fL 10/06/2018 12:21 AM [facility] nRBC Absolute 0.00 0 10? 3 /uL 10/06/2018 12:21 AM [facility] nRBC Auto 0.0 0 /100 WBC 10/06/2018 12:21 AM [facility] Neutrophils % 72.1(H) 35.0 - 70.0 % 10/06/2018 12:21 AM [facility] Lymphocytes % 11.2(L) 19.7 - 55.1 % 10/06/2018 12:21 AM [facility] Monocytes % 14.6 3.0 - 15.0 % 10/06/2018 12:21 AM [facility] Eosinophils % 1.2 0.0 - 6.0 % 10/06/2018 12:21 AM [facility] Basophil % 0.4 0.0 - 1.5 % 10/06/2018 12:21 AM [facility] Neutrophils Absolute 5.3 1.6 - 7.0 10? 3 /uL 10/06/2018 12:21 AM [facility] Lymphocyte Absolute 0.8 0.8 - 2.9 10? 3 /uL 10/06/2018 12:21 AM [facility] Monocytes Absolute 1.08(H) 0.14 - 0.66 10? 3 /uL 10/06/2018 12:21 AM [facility] Eosinophils Absolute 0.09 0.00 - 0.45 10? 3 /uL 10/06/2018 12:21 AM CDT [facility] Basophils Absolute 0.03 0.00 - 0.06 10? 3 /uL 10/06/2018 12:21 AM CDT [facility] Immature Granulocytes % 0.5 0.0 - 1.0 % 10/06/2018 12:21 AM CDT [facility] Blood BLOOD SPECIMEN / Unknown Venipuncture / Unknown 10/06/2018 12:11 AM CDT 10/06/2018 12:13 AM CDT Juancho Rhodes MD LAB - HEMATOLOGY ORD ERABLES [address] [phone] * PHOSPHORUS BLOOD (10/05/2018 11:53 PM CDT) Phosphorus 3.2 2.3 - 4.7 mg/dL 10/06/2018 12:32 AM CDT [facility] Blood BLOOD SPECIMEN / Unknown Venipuncture / Unknown 10/05/2018 11:53 PM CDT 10/05/2018 11:56 PM CDT Juancho Rhodes MD LAB - CHEMISTRY ORDSukhwinder GOLD Performing Organization Address City/[facility]/ZIP Co de Phone Number [address] [phone] * MAGNESIUM BLOOD (10/05/2018 11:53 PM CDT) Magnesium 1.8 1.6 - 2.6 mg/dL 10/06/2018 12:32 AM CDT [facility] Blood BLOOD SPECIMEN / Unknown Venipuncture / Unknown 10/05/2018 11:53 PM CDT 10/05/2018 11:56 PM CDT Juancho Rhodes MD LAB - CHEMISTRY ORDSukhwinder GOLD [place] [id number], [place] [phone] * (ABNORMAL) BASIC METABOLIC PANEL (CALCIUM TOTAL) (10/05/2018 11:53 PM CDT) [facility] BUN 6(L) 7 - 26 mg/dL 10/06/2018 12:32 AM [facility] Creatinine 0.5(L) 0.6 - 1.2 mg/dL 10/06/2018 12:32 AM [facility] Sodium 130(L) 136 - 145 mmol/L 10/06/2018 12:32 AM [facility] Potassium 3.8 3.5 - 4.5 mmol/L 10/06/2018 12:32 AM [facility] Chloride 95(L) 98 - 107 mmol/L 10/06/2018 12:32 AM [facility] CO2 24 22 - 29 mmol/L 10/06/2018 12:32 AM [facility] Glucose 101 70 - 115 mg/dL 10/06/2018 12:32 AM [facility] Calcium 9.0 8.4 - 10.2 mg/dL 10/06/2018 12:32 AM [facility] Anion Gap 15 8 - 18 10/06/2018 12:32 AM [facility] BUN/Creatinine Ratio 12 7 - 23 10/06/2018 12:32 AM [facility] Osmolality Calculated 268(L) 270 - 300 mOsm/kg 10/06/2018 12:32 AM [facility] eGFR >60 >60 mL/min/1.7 3 m2 10/06/2018 12:32 AM [facility] Blood BLOOD SPECIMEN / Unknown Venipuncture / Unknown 10/05/2018 11:53 PM CDT 10/05/2018 11:56 PM CDT Juancho Rhodes MD LAB - CHEMISTRY MIGUEL GOLD [facility] Organization Address City/State/ZIP Co de Phone Number [place] [id number] [address] [phone] * PHOSPHORUS BLOOD (10/05/2018 2:16 AM CDT) [facility] Phosphorus 3.0 2.3 - 4.7 mg/dL 10/05/2018 2:43 AM CDT [facility] Blood BLOOD SPECIMEN / Unknown Lab Venipuncture / Unknown 10/05/2018 2:16 AM CDT 10/05/2018 2:21 AM CDT Emmanuelle Rocio Bryan [facility] LAB - CHEMISTRY ORDERABLES Performing Organization Address [facility]/ZIP Co de Phone Number [address] [phone] * (ABNORMAL) MAGNESIUM BLOOD (10/05/2018 2:16 AM CDT) Magnesium 1.4(L) 1.6 - 2.6 mg/dL 10/05/2018 2:43 AM T [facility] Blood BLOOD SPECIMEN / Unknown Lab Venipuncture / Unknown 10/05/2018 2:16 AM CDT 10/05/2018 2:21 AM CDT Emmanuelle Adams [facility] LAB - CHEMISTRY ORDERABLES Performing Organization Address [facility] Co de Phone Number [address] [phone] * (ABNORMAL) BASIC METABOLIC PANEL (CALCIUM TOTAL) (10/05/2018 2:16 AM CDT) BUN 5(L) 7 - 26 mg/dL 10/05/2018 2:43 AM [facility] Creatinine 0.6 0.6 - 1.2 mg/dL 10/05/2018 2:43 AM [facility] Sodium 134(L) 136 - 145 mmol/L 10/05/2018 2:43 AM [facility] Potassium 4.0 3.5 - 4.5 mmol/L 10/05/2018 2:43 AM [facility] Chloride 100 98 - 107 mmol/L 10/05/2018 2:43 AM [facility] CO2 25 22 - 29 mmol/L 10/05/2018 2:43 AM [facility] Glucose 100 70 - 115 mg/dL 10/05/2018 2:43 AM [facility] Calcium 8.9 8.4 - 10.2 mg/dL 10/05/2018 2:43 AM [facility] Anion Gap 13 8 - 18 10/05/2018 2:43 AM [facility] BUN/Creatinine Ratio 8 7 - 23 10/05/2018 2:43 AM [facility] Osmolality Calculated 275 270 - 300 mOsm/kg 10/05/2018 2:43 AM [facility] eGFR >60 >60 mL/min/1.7 3 m2 10/05/2018 2:43 AM [facility] Blood BLOOD SPECIMEN / Unknown Lab Venipuncture / Unknown 10/05/2018 2:16 AM CDT 10/05/2018 2:21 AM CDT Emmanuelle Adams APRN-[employer] LEADER LAB - CHEMISTRY ORDERABLES Performing Organization Address City/State/[facility] Co de Phone Number [facility] [address] [place] [address] * (ABNORMAL) CBC W/O DIFFERENTIAL (10/05/2018 2:16 AM CDT) WBC 5.6 3.5 - 10.5 10? 3 /uL 10/05/2018 2:30 AM [facility] RBC 3.38(L) 4.30 - 5.70 10? 6 /uL 10/05/2018 2:30 AM [facility] Hemoglobin 9.1(L) 13.5 - 17.5 g/dL 10/05/2018 2:30 AM [facility] Hematocrit 28.9(L) 39.0 - 50.0 % 10/05/2018 2:30 AM [facility] MCV 85.5 81.0 - 97.0 fL 10/05/2018 2:30 AM [facility] MCH 26.9(L) 28.0 - 34.0 pg 10/05/2018 2:30 AM [facility] MCHC 31.5(L) 32.0 - 36.0 g/dL 10/05/2018 2:30 AM [facility] Platelet Count 55(L) 150 - 400 10? 3 /uL 10/05/2018 2:30 AM CDT [facility] RDW-SD 66.4(H) 36.0 - 50.0 fL 10/05/2018 2:30 AM CDT [facility] RDW-CV 21.4(H) 11.2 - 14.8 % 10/05/2018 2:30 AM CDT [facility] MPV 9.8 9.3 - 12.8 fL 10/05/2018 2:30 AM CDT [facility] nRBC Absolute 0.00 0 10? 3 /uL 10/05/2018 2:30 AM CDT [facility] nRBC Auto 0.0 0 /100 WBC 10/05/2018 2:30 AM CDT [facility] Blood BLOOD SPECIMEN / Unknown Lab Venipuncture / Unknown 10/05/2018 2:16 AM CDT 10/05/2018 2:21 AM CDT Emmanuelle Adams APRN-[employer] LEADER LAB - HEMATOLOGY ORDERABLES Performing Organization Address City/State/[facility] Co de Phone Number [address] [phone] * (ABNORMAL) RBC MORPHOLOGY (10/04/2018 9:27 AM CDT) Platelet Estimate Decreased (A) Adequate 10/04/2018 10:57 AM CDT [facility] Anisocytosis 1+(A) None 10/04/2018 10:57 AM CDT [facility] Hypochromia 2+(A) None 10/04/2018 10:57 AM CDT [facility] Polychromasia 1+(A) None 10/04/2018 10:57 AM CDT [facility] Target Cells 1+(A) None 10/04/2018 10:57 AM CDT [facility] Schistocytes Rare(A) None 10/04/2018 10:57 AM CDT [facility] Ovalocytes Rare(A) None 10/04/2018 10:57 AM CDT [facility] Blood BLOOD SPECIMEN / Unknown Lab Venipuncture / Unknown 10/04/2018 9:27 AM CDT 10/04/2018 9:48 AM CDT Emmanuelle Chan Bryan TELEVISION REPAIRER-[employer] LEADER LAB - HEMATOLOGY ORDERABLES Performing Organization Address City/State/[facility] Co de Phone Number [address] [phone] * (ABNORMAL) CBC W AUTO DIFFERENTIAL (10/04/2018 9:27 AM CDT) WBC 5.6 3.5 - 10.5 10? 3 /uL 10/04/2018 10:20 AM [facility] RBC 3.42(L) 4.30 - 5.70 10? 6 /uL 10/04/2018 10:20 AM [facility] Hemoglobin 9.3(L) 13.5 - 17.5 g/dL 10/04/2018 10:20 AM [facility] Hematocrit 29.2(L) 39.0 - 50.0 % 10/04/2018 10:20 AM [facility] MCV 85.4 81.0 - 97.0 fL 10/04/2018 10:20 AM [facility] MCH 27.2(L) 28.0 - 34.0 pg 10/04/2018 10:20 AM [facility] MCHC 31.8(L) 32.0 - 36.0 g/dL 10/04/2018 10:20 AM [facility] Platelet Count 46(L) 150 - 400 10? 3 /uL 10/04/2018 10:20 AM [facility] RDW-SD 67.0(H) 36.0 - 50.0 fL 10/04/2018 10:20 AM [facility] RDW-CV 21.5(H) 11.2 - 14.8 % 10/04/2018 10:20 AM [facility] MPV 10.7 9.3 - 12.8 fL 10/04/2018 10:20 AM [facility] nRBC Absolute 0.00 0 10? 3 /uL 10/04/2018 10:20 AM [facility] nRBC Auto 0.0 0 /100 WBC 10/04/2018 10:20 AM [facility] Neutrophils % 71.0(H) 35.0 - 70.0 % 10/04/2018 10:20 AM [facility] Lymphocytes % 13.5(L) 19.7 - 55.1 % 10/04/2018 10:20 AM [facility] Monocytes % 12.8 3.0 - 15.0 % 10/04/2018 10:20 AM [facility] Eosinophils % 1.8 0.0 - 6.0 % 10/04/2018 10:20 AM [facility] Basophil % 0.5 0.0 - 1.5 % 10/04/2018 10:20 AM [facility] Neutrophils Absolute 3.9 1.6 - 7.0 10? 3 /uL 10/04/2018 10:20 AM [facility] Lymphocyte Absolute 0.8 0.8 - 2.9 10? 3 /uL 10/04/2018 10:20 AM [facility] Monocytes Absolute 0.71(H) 0.14 - 0.66 10? 3 /uL 10/04/2018 10:20 AM [facility] Eosinophils Absolute 0.10 0.00 - 0.45 10? 3 /uL 10/04/2018 10:20 AM [facility] Basophils Absolute 0.03 0.00 - 0.06 10? 3 /uL 10/04/2018 10:20 AM [facility] Immature Granulocytes % 0.4 0.0 - 1.0 % 10/04/2018 10:20 AM [facility] Blood BLOOD SPECIMEN / Unknown Lab Venipuncture / Unknown 10/04/2018 9:27 AM CDT 10/04/2018 9:48 AM CDT Emmanuelle Adams TELEVISION REPAIRER-[employer] LEADER LAB - HEMATOLOGY ORDERABLES [facility] [address] [place] [address] * (ABNORMAL) PHOSPHORUS BLOOD (10/04/2018 9:27 AM CDT) Phosphorus 2.2(L) 2.3 - 4.7 mg/dL 10/04/2018 10:40 AM CDT [facility] Blood BLOOD SPECIMEN / Unknown Lab Venipuncture / Unknown 10/04/2018 9:27 AM CDT 10/04/2018 9:48 AM CDT Emmanuelle Adams [facility]CR[facility]ICAL ACCESS [facility] LAB - CHEMISTRY ORDERABLES Performing Organization Address [facility]/ZIP Co de Phone Number [address] [phone] * (ABNORMAL) MAGNESIUM BLOOD (10/04/2018 9:27 AM CDT) Magnesium 1.2(L) 1.6 - 2.6 mg/dL 10/04/2018 10:43 AM CDT [facility] Blood BLOOD SPECIMEN / Unknown Lab Venipuncture / Unknown 10/04/2018 9:27 AM CDT 10/04/2018 9:48 AM CDT Emmanuelle Adams [facility] LAB - CHEMISTRY ORDERABLES Performing Organization Address [facility] Co de Phone Number [address] [phone] * (ABNORMAL) BASIC METABOLIC PANEL (CALCIUM TOTAL) (10/04/2018 9:27 AM CDT) BUN 5(L) 7 - 26 mg/dL 10/04/2018 10:59 AM [facility] Creatinine 0.6 0.6 - 1.2 mg/dL 10/04/2018 10:59 AM [facility] Sodium 131(L) 136 - 145 mmol/L 10/04/2018 10:59 AM [facility] Comment:Confirmed by repeat analysis. Potassium 3.7 3.5 - 4.5 mmol/L 10/04/2018 10:59 AM [facility] Chloride 97(L) 98 - 107 mmol/L 10/04/2018 10:59 AM [facility] Comment:Confirmed by repeat analysis. CO2 25 22 - 29 mmol/L 10/04/2018 10:59 AM [facility] Glucose 120(H) 70 - 115 mg/dL 10/04/2018 10:59 AM [facility] Calcium 8.5 8.4 - 10.2 mg/dL 10/04/2018 10:59 AM T [facility] Anion Gap 13 8 - 18 10/04/2018 10:59 AM T [facility] BUN/Creatinine Ratio 8 7 - 23 10/04/2018 10:59 AM T [facility] Osmolality Calculated 270 270 - 300 mOsm/kg 10/04/2018 10:59 AM T [facility] eGFR >60 >60 mL/min/1.7 3 m2 10/04/2018 10:59 AM CDT [facility] Blood BLOOD SPECIMEN / Unknown Lab Venipuncture / Unknown 10/04/2018 9:27 AM CDT 10/04/2018 9:48 AM CDT Emmanuelle ANDERSONPULP MILL TEAM LEADER LAB - CHEMISTRY ORDERABLES Performing Organization Address City/[facility]/ZIP Co de Phone Number [address] [phone] * EKG 12-LEAD (10/03/2018 2:57 PM CDT) Ventricular Rate 88 BPM [facility] MUSE Atrial Rate 88 BPM [facility] MUSE P-R Interval 138 ms [facility] MUSE QRS Duration ms 86 ms [facility] MUSE Q-T Interval ms 368 ms [facility] MUSE QTC Calculation (Bezet) 445 ms [facility] MUSE Calculated P [place] 28 degrees [facility] MUSE Calculated R [place] 26 degrees [facility] MUSE Calculated T [place] 18 degrees [facility] MUSE Interpretation EKG NORMAL SINUS RHYTHM NORMAL ECG NO PREVIOUS ECGS AVAILABLE Confirmed by Sara HERNANDEZ, KEIRA ([id number]), map editor Carmela Galeano ([id number]) on 10/15/2018 9:30:33 PM [facility] MUSE 10/03/2018 2:57 PM CDT 10/15/2018 9:30 PM CDT Miguel Roach MD ECG ORDERABLES [facility] MUSE * (ABNORMAL) RBC MORPHOLOGY (10/03/2018 3:12 AM CDT) Pathologist [facility] Platelet Estimate Decreased (A) Adequate 10/03/2018 4:41 AM T [facility] Anisocytosis 1+(A) None 10/03/2018 4:41 AM T [facility] Microcytes 1+(A) None 10/03/2018 4:41 AM T [facility] Hypochromia 1+(A) None 10/03/2018 4:41 AM T [facility] Polychromasia Occasiona l(A) None 10/03/2018 4:41 AM T [facility] Target Cells Occasiona l(A) None 10/03/2018 4:41 AM T [facility] Blood BLOOD SPECIMEN / Unknown Lab Venipuncture / Unknown 10/03/2018 3:12 AM CDT 10/03/2018 3:46 AM CDT Paul De Paz MD LAB - HEMATOLOGY ORD ERABLES Performing Organization Address City/State/[facility] Co de Phone Number [address] [phone] * (ABNORMAL) BASIC METABOLIC PANEL (CALCIUM TOTAL) (10/03/2018 3:12 AM CDT) Pathologist [facility] BUN 3(L) 7 - 26 mg/dL 10/03/2018 4:12 AM [facility] Creatinine 0.5(L) 0.6 - 1.2 mg/dL 10/03/2018 4:12 AM [facility] Sodium 141 136 - 145 mmol/L 10/03/2018 4:12 AM [facility] Potassium 3.3(L) 3.5 - 4.5 mmol/L 10/03/2018 4:12 AM [facility] Chloride 108(H) 98 - 107 mmol/L 10/03/2018 4:12 AM [facility] CO2 24 22 - 29 mmol/L 10/03/2018 4:12 AM [facility] Glucose 100 70 - 115 mg/dL 10/03/2018 4:12 AM [facility] Calcium 7.8(L) 8.4 - 10.2 mg/dL 10/03/2018 4:12 AM [facility] Anion Gap 12 8 - 18 10/03/2018 4:12 AM [facility] BUN/Creatinine Ratio 6(L) 7 - 23 10/03/2018 4:12 AM [facility] Osmolality Calculated 289 270 - 300 mOsm/kg 10/03/2018 4:12 AM [facility] eGFR >60 >60 mL/min/1.7 3 m2 10/03/2018 4:12 AM [facility] Blood BLOOD SPECIMEN / Unknown Lab Venipuncture / Unknown 10/03/2018 3:12 AM CDT 10/03/2018 3:46 AM CDT Paul De Paz MD LAB - CHEMISTRY MIGUEL GOLD [facility] [address] [phone] * (ABNORMAL) CBC W AUTO DIFFERENTIAL (10/03/2018 3:12 AM CDT) WBC 4.2 3.5 - 10.5 10? 3 /uL 10/03/2018 4:09 AM [facility] RBC 3.37(L) 4.30 - 5.70 10? 6 /uL 10/03/2018 4:09 AM [facility] Hemoglobin 8.8(L) 13.5 - 17.5 g/dL 10/03/2018 4:09 AM [facility] Hematocrit 28.0(L) 39.0 - 50.0 % 10/03/2018 4:09 AM [facility] MCV 83.1 81.0 - 97.0 fL 10/03/2018 4:09 AM [facility] MCH 26.1(L) 28.0 - 34.0 pg 10/03/2018 4:09 AM [facility] MCHC 31.4(L) 32.0 - 36.0 g/dL 10/03/2018 4:09 AM [facility] Platelet Count 52(L) 150 - 400 10? 3 /uL 10/03/2018 4:09 AM [facility] RDW-SD 68.1(H) 36.0 - 50.0 fL 10/03/2018 4:09 AM [facility] RDW-CV 22.5(H) 11.2 - 14.8 % 10/03/2018 4:09 AM [facility] MPV 10.6 9.3 - 12.8 fL 10/03/2018 4:09 AM [facility] nRBC Absolute 0.00 0 10? 3 /uL 10/03/2018 4:09 AM [facility] nRBC Auto 0.0 0 /100 WBC 10/03/2018 4:09 AM [facility] Neutrophils % 53.1 35.0 - 70.0 % 10/03/2018 4:09 AM [facility] Lymphocytes % 26.0 19.7 - 55.1 % 10/03/2018 4:09 AM [facility] Monocytes % 18.4(H) 3.0 - 15.0 % 10/03/2018 4:09 AM [facility] Eosinophils % 1.4 0.0 - 6.0 % 10/03/2018 4:09 AM [facility] Basophil % 0.9 0.0 - 1.5 % 10/03/2018 4:09 AM [facility] Neutrophils Absolute 2.2 1.6 - 7.0 10? 3 /uL 10/03/2018 4:09 AM [facility] Lymphocyte Absolute 1.1 0.8 - 2.9 10? 3 /uL 10/03/2018 4:09 AM [facility] Monocytes Absolute 0.78(H) 0.14 - 0.66 10? 3 /uL 10/03/2018 4:09 AM [facility] Eosinophils Absolute 0.06 0.00 - 0.45 10? 3 /uL 10/03/2018 4:09 AM [facility] Basophils Absolute 0.04 0.00 - 0.06 10? 3 /uL 10/03/2018 4:09 AM [facility] Immature Granulocytes % 0.2 0.0 - 1.0 % 10/03/2018 4:09 AM [facility] Blood BLOOD SPECIMEN / Unknown Lab Venipuncture / Unknown 10/03/2018 3:12 AM CDT 10/03/2018 3:46 AM CDT Paul De Paz MD LAB - HEMATOLOGY ORD ERABLES [facility] [address] [phone] * (ABNORMAL) CBC W/O DIFFERENTIAL (10/03/2018 12:00 AM CDT) WBC 4.4 3.5 - 10.5 10? 3 /uL 10/03/2018 12:11 AM [facility] RBC 3.32(L) 4.30 - 5.70 10? 6 /uL 10/03/2018 12:11 AM [facility] Hemoglobin 8.8(L) 13.5 - 17.5 g/dL 10/03/2018 12:11 AM [facility] Hematocrit 27.6(L) 39.0 - 50.0 % 10/03/2018 12:11 AM [facility] MCV 83.1 81.0 - 97.0 fL 10/03/2018 12:11 AM [facility] MCH 26.5(L) 28.0 - 34.0 pg 10/03/2018 12:11 AM [facility] MCHC 31.9(L) 32.0 - 36.0 g/dL 10/03/2018 12:11 AM [facility] Platelet Count 50(L) 150 - 400 10? 3 /uL 10/03/2018 12:11 AM [facility] RDW-SD 66.8(H) 36.0 - 50.0 fL 10/03/2018 12:11 AM [facility] RDW-CV 22.5(H) 11.2 - 14.8 % 10/03/2018 12:11 AM [facility] MPV 9.6 9.3 - 12.8 fL 10/03/2018 12:11 AM [facility] nRBC Absolute 0.00 0 10? 3 /uL 10/03/2018 12:11 AM [facility] nRBC Auto 0.0 0 /100 WBC 10/03/2018 12:11 AM [facility] Blood BLOOD SPECIMEN / Unknown Lab Venipuncture / Unknown 10/03/2018 12:00 AM CDT 10/03/2018 12:04 AM CDT Lupillo Hale MD LAB - HEMATOLOGY ORD TIPBLES [facility] [address] [place] [address] * (ABNORMAL) HEPATIC FUNCTION PANEL (10/02/2018 11:45 PM CDT) Pathologist [facility] Protein Total 6.2 6.0 - 8.3 g/dL 019 12:18 AM T [facility] Albumin 2.5(L) 3.4 - 5.0 g/dL 10/03/2018 12:18 AM [facility] Bilirubin Total 2.2(H) 0.2 - 1.2 mg/dL 09/16 12:18 AM [facility] Bilirubin Conjugated 1.2(H) 0.0 - 0.5 mg/dL 10/03/2018 12:18 AM [facility] Bilirubin Unconjugated 1.0 Unconjugated Bilirubin is a calculated value: Reference ranges have not been established. mg/dL 10/03/2018 12:18 AM [facility] Alkaline Phosphatase 150 40 - 150 Units/L 10/03/2018 12:18 AM [facility] ALT 48 0 - 55 Units/L 10/03/2018 12:18 AM [facility] AST 210(H) 5 - 34 Units/L 10/03/2018 12:18 AM [facility] Albumin/Globulin Ratio 0.7(L) 1.1 - 2.3 10/03/2018 12:18 AM [facility] Blood BLOOD SPECIMEN / Unknown Lab Venipuncture / Unknown 10/02/2018 11:45 PM CDT 10/02/2018 11:55 PM CDT Lupillo Hale MD LAB - CHEMISTRY MIGUEL GOLD [address] [phone] * XR WRIST LEFT 2VW (10/02/2018 7:09 PM CDT) Anatomical Region Laterality Modality Wrist / Hand Radiographic Lynette ging 10/02/2018 7:27 PM CDT Impressions 10/04/2018 4:32 PM CDT IMPRESSION: Status post splint placement for intra-articular distal radius fracture. Improved alignment. Report dictated by Efren Bauman M.D. (residential service technician). Dr. PRANAY Londono MD have personally reviewed and interpreted this examination/study. This report was electronically signed by PRANAY GUAMAN MD ??on 10/04/2018 4:32 PM . Narrative 10/04/2018 4:32 PM CDT EXAMINATION: XR WRIST LEFT 2VW HISTORY: reduction COMPARISON: Centimeters radiograph at 6:04 PM FINDINGS: The patient is status post splint placement for intra-articular distal radius fracture. Alignment is improved. Procedure Note Pranay Guaman MD - 10/04/2018 EXAMINATION: XR WRIST LEFT 2VW HISTORY: reduction COMPARISON: [facility] radiograph at 6:04 PM FINDINGS: The patient is status post splint placement for intra-articular distal radius fracture. Alignment is improved. IMPRESSION: Status post splint placement for intra-articular distal radius fracture. Improved alignment. Report dictated by Efren Bauman M.D. (residential service technician). Dr. PRANAY Londono MD have personally reviewed and interpreted this examination/study. This report was electronically signed by PRANAY GUAMAN MD on10/04/2018 4:32 PM . Lupillo Baxter MD DIAGNOSTIC I MAGING ORDERABLES * (ABNORMAL) DRUG SCREEN TOX URINE PANEL (10/02/2018 6:33 PM CDT) Pathologist [facility] Amphetamines Screen Urine Negative Negative : < 1000 ng/mL 10/02/2018 7:02 PM CDT [facility] Barbiturates Screen Urine Negative Negative : < 200 ng/mL 10/02/2018 7:02 PM CDT [facility] Benzodiazepine Screen Urine Positive(A) Negative : < 200 ng/mL 10/02/2018 7:02 PM [facility] Comment: Positive urine benzodiazepine screening results should be confirmed by another generally accepted non-immunological method such as gas chromatography or mass spectrometry. ? Opiates Urine Negative Negative : < 300 ng/mL 10/02/2018 7:02 PM [facility] Cocaine Metabolites Urine Negative Negative : < 300 ng/mL 10/02/2018 7:02 PM [facility] Phencyclidine Screen Urine Negative Negative : < 25 ng/ml 10/02/2018 7:02 PM [facility] Cannabinoids Screen Urine Negative Negative : <50 ng/mL 10/02/2018 7:02 PM [facility] Methadone Screen Urine Negative Negative : < 300 ng/mL 10/02/2018 7:02 PM [facility] Urine URINE / Unknown Collection / Unknown 10/02/2018 6:33 PM CDT 10/02/2018 6:43 PM CDT [facility] - 10/02/2018 7:02 PM T The Urine Toxicology Screening Panel does not screen for Propoxyphene, Meprobamate, Carisoprodol, Trazodone, [id number] medications and/or volatiles (Acetone, Isopropanol, Methanol or Ethylene Glycol). Ethanol, Salicylate, Acetaminophen, Tricyclic Antidepressants and several therapeutic drugs may be individually assayed in serum or plasma specimen. Toxicology testing by the [facility] is an aid to medical diagnosis and treatment of patients. No documented chain of custody was maintained. Results are intended to be used for clinical purposes only. ? Alfred Thakkar DO LAB - URINE CHEMISTR Y ORDERABLES [facility] [address] [place] [address], [facility] [phone] * XR WRIST LEFT 3VW OR MORE (10/02/2018 6:15 PM CDT) Anatomical Region Laterality Modality Wrist / Hand Radiographic Lynette ging 10/02/2018 6:15 PM CDT Impressions 10/04/2018 4:31 PM CDT IMPRESSION: Status post splint placement for intra-articular distal radius fracture. Report dictated by Efren Bauman M.D. (residential service technician). Dr. PRANAY Londono MD have personally reviewed and interpreted this examination/study. This report was electronically signed by PRANAY GUAMAN MD ??on 10/04/2018 4:31 PM . Narrative 10/04/2018 4:31 PM CDT EXAMINATION: XR WRIST LEFT 3VW OR MORE HISTORY: post reduction and splint COMPARISON: Same-day wrist radiograph FINDINGS: Patient is status post splint placement for intra-articular distal radius fracture. The fracture is mildly to moderately displaced and angulated. The joint spaces are normal. Soft tissue swelling is noted. Procedure Note Pranay Guaman MD - 10/04/2018 EXAMINATION: XR WRIST LEFT 3VW OR MORE HISTORY: post reduction and splint COMPARISON: Same-day wrist radiograph FINDINGS: Patient is status post splint placement for intra-articular distalradius fracture. The fracture is mildly to moderately displaced and angulated. The joint spaces are normal. Soft tissue swelling is noted. IMPRESSION: Status post splint placement for intra-articular distal radius fracture. Report dictated by Efren Bauman M.D. (residential service technician). Dr. PRANAY Londono MD have personally reviewed and interpreted this examination/study. This report was electronically signed by PRANAY GUAMAN MD on10/04/2018 4:31 PM . Yusuf Velasco MD DIAGNOSTIC IMAGING O RDERABLES * XR HAND LEFT 3VW OR MORE (10/02/2018 5:12 PM CDT) Anatomical Region Laterality Modality Wrist / Hand Radiographic Lynette ging 10/02/2018 5:18 PM CDT Impressions 10/04/2018 3:04 PM CDT IMPRESSION: 1.Mildly displaced intra-articular distal radius fracture. 2.No acute fracture in the hand. Report dictated by Efren Bauman M.D. (residential service technician). I, Dr. SHAAN ALEJANDRE have personally reviewed [...] hand. Report dictated by Efren Bauman M.D. (residential service technician). Dr. SHAAN Londono have personally reviewed and interpreted this examination/study. This report was electronically signed by SHAAN ALEJANDRE on 10/04/2018 3:04 PM . Alfred Bishopensen DO DIAGNOSTIC IMAGING O RDERABLES * XR WRIST LEFT 3VW OR MORE (10/02/2018 5:11 PM CDT) Anatomical Region Laterality Modality Wrist / Hand Radiographic Lynette ging 10/02/2018 5:18 PM CDT Impressions 10/04/2018 3:04 PM CDT IMPRESSION: 1.Mildly displaced intra-articular distal radius fracture. 2.No acute fracture in the hand. Report dictated by Efren Bauman M.D. (residential service technician). Dr. SHAAN Londono have personally reviewed and [...] hand. Report dictated by Efren Bauman M.D. (residential service technician). Dr. SHAAN Londono have personally reviewed and [...] hand. Report dictated by Efren Bauman M.D. (residential service technician). Dr. SHAAN Londono have personally reviewed and [...] hand. Report dictated by Efren Bauman M.D. (residential service technician). Dr. SHAAN Londono have personally reviewed and [...] identified. Report dictated by Efren Bauman M.D. (residential service technician). Dr. MICHELE Londono M.D. have personally reviewed and interpreted this examination/study. This report was electronically signed by MICHELE SINGH M.D. ??on 10/04/2018 4:35 PM . Narrative 10/04/2018 4:35 PM CDT EXAMINATION: XR FEMUR LEFT 2VW HISTORY: Pain after trauma COMPARISON: No prior study is available for comparison. FINDINGS: The femur is intact without acute fracture. The joint spaces are preserved. Bone density and texture are normal. No soft tissue abnormality is evident. Procedure Note Michele Singh MD - 10/04/2018 EXAMINATION: XR FEMUR LEFT 2VW HISTORY: Pain after trauma COMPARISON: No prior study is available for comparison. FINDINGS: The femur is intact without acute fracture. The joint spaces are preserved. Bone density and texture are normal. No soft tissueabnormality is evident. IMPRESSION: No acute femoral fracture identified. Report dictated by Efren Bauman M.D. (residential service technician). Dr. MICHELE Londono M.D. have personally reviewed and interpreted this examination/study. This report was electronically signed by MICHELE SINGH M.D. on 10/04/2018 4:35 PM . Alfred [...] was electronically signed by ALY MATHEWS ??on 10/03/2018 10:27 AM . Narrative 10/03/2018 [...] tissue abnormality is identified. Procedure Note Aly Mathews MD - 10/03/2018 EXAMINATION: 1. Computed tomography [...] Javier Tian on 10/03/2018 10:26 AM . I, Dr. ALY MATHEWS have personally reviewed and interpreted this examination/study. This report was electronically signed by ALY MATHEWS on10/03/2018 10:27 AM . Alfred Thakkar DO [...] lumbar spine. This report was approved ??by [facility] ?? on 10/03/2018 10:26 AM . I, Dr. ALY MATHEWS have personally reviewed and interpreted this examination/study. This report was electronically signed by ALY MATHEWS ??on 10/03/2018 10:27 AM . Narrative 10/03/2018 [...] tissue abnormality is identified. Procedure Note Aly Mathews MD - 10/03/2018 EXAMINATION: 1. Computed tomography [...] lumbarspine. This report was approved by Javier [facility] on 10/03/2018 10:26 AM . I, Dr. ALY MATHEWS have personally reviewed and interpreted this examination/study. This report was electronically signed by ALY MATHEWS on10/03/2018 10:27 AM . Alfred Thakkar DO [...] 10/03/2018 10:26 AM . I, Dr. ALY MATHEWS have personally reviewed and interpreted this examination/study. This report was electronically signed by ALY MATHEWS ??on 10/03/2018 10:27 AM . Narrative 10/03/2018 [...] tissue abnormality is identified. Procedure Note Aly Mathews MD - 10/03/2018 EXAMINATION: 1. Computed tomography [...] report was electronically signed by ALY MATHEWS on10/03/2018 10:27 AM . Alfred Thakkar DO CT ORDERABLES * CT CHEST ABDOMEN PELVIS W CONT (10/02/2018 5:02 PM CDT) Anatomical Region Laterality Modality Chest, Abdomen, Pelvis Computed Tomography 10/02/2018 4:37 PM CDT Impressions 10/03/2018 10:53 AM CDT IMPRESSION: 1. No acute visceral, vascular, or osseus injury identified in the chest, abdomen, or pelvis. 2. Hepatic cirrhosis with sequela of portal hypertension. Dictated by Serena Syed MD (residential service technician). Dr. GITA Londono M.D. have personally reviewed and interpreted this examination/study. This report was electronically signed by GITA FOREMAN M.D. ??on 10/03/2018 10:53 AM . Narrative 10/03/2018 10:53 AM CDT EXAMINATION: Computed tomography (CT) of the chest, abdomen, and pelvis with contrast HISTORY: Pain after injury TECHNIQUE: CT of the chest, abdomen, and pelvis was performed after the uneventful administration of 100 mL of Isovue-370 intravenous contrast according to standard protocol. COMPARISON: No prior study is available for comparison. FINDINGS: Chest: There is a left-sided three-vessel aortic arch. The aorta and main pulmonary arteries are normal in course and caliber. The lungs are clear of focal consolidation. No pleural effusion or focal pleural thickening is identified. There is no evidence of pneumothorax. No suspicious pulmonary nodule is identified. The trachea is patent and midline. The heart size is normal. No pericardial effusion is present. No mediastinal, hilar, supraclavicular, or axillary lymphadenopathy is seen. The thyroid gland enhances homogenously. Abdomen/pelvis: The liver has a nodular surface, consistent with hepatic cirrhosis. Otherwise the liver demonstrates geographic areas of hyperattenuation along the periphery, likely representing vascular shunting as well as regions of focal fatty infiltration. Trace perihepatic fluid is present along the right hepatic lobe. Large perigastric varices are present. There is diffuse gallbladder wall thickening up to 2.0 cm. No gallstones or pericholecystic fat stranding is identified. The intrahepatic and extrahepatic bile ducts are nondilated. The spleen enhances homogenously without focal lesion. Trace perisplenic fluid is present. Mesenteric edema is noted. The pancreas and adrenal glands are normal. The kidneys enhance symmetrically. There is no evidence of renal calculus or hydronephrosis. The esophagus and stomach appear normal. The small bowel and large bowel are normal in caliber without evidence of wall thickening or obstruction. The appendix appears normal without appendicolith or surrounding inflammatory changes. No free air is identified within the abdomen. There is no abdominal lymphadenopathy. The urinary bladder is distended with fluid and appears normal. The prostate contains foci of calcification. A small amount of free pelvic fluid is seen. ??There is no pelvic lymphadenopathy. Bone windows demonstrate no suspicious lytic or blastic lesions. The visible osseous structures are intact. Mild multilevel degenerative changes are present in the spine. Procedure Note Erin Foreman MD - 10/03/2018 EXAMINATION: Computed tomography (CT) of the chest, abdomen, and pelvis with contrast HISTORY: Pain after injury TECHNIQUE: CT of the chest, abdomen, and pelvis was performed after the uneventful administration of 100 mL of Isovue-370 intravenous contrast according to standard protocol. COMPARISON: No prior study is available for comparison. FINDINGS: Chest: There is a left-sided three-vessel aortic arch. The aorta and main pulmonary arteries are normal in course and caliber. The lungs are clear of focal consolidation. No pleural effusion or focal pleural thickening is identified. There is no evidence of pneumothorax.No suspicious pulmonary nodule is identified. The trachea is patent and midline. The heart size is normal. No pericardial effusion is present. No mediastinal, hilar, supraclavicular, or axillary lymphadenopathy isseen. The thyroid gland enhances homogenously. Abdomen/pelvis: The liver has a nodular surface, consistent with hepatic cirrhosis. Otherwise the liver demonstrates geographic areas of hyperattenuation along the periphery, likely representing vascular shunting as well as regions of focal fatty infiltration. Trace perihepatic fluid is present along the right hepatic lobe. Large perigastric varices are present.There is diffuse gallbladder wall thickening up to 2.0 cm. No gallstones or pericholecystic fat stranding is identified. The intrahepatic and extrahepatic bile ducts are nondilated. The spleen enhances homogenously without focal lesion. Trace perisplenic fluid is present. Mesentericedema is noted. The pancreas and adrenal glands are normal. The kidneysenhance symmetrically. There is no evidence of renal calculus or hydronephrosis. The esophagus and stomach appear normal. The small bowel and large bowel are normal in caliber without evidence of wall thickening orobstruction. The appendix appears normal without appendicolith or surrounding inflammatory changes. No free air is identified within the abdomen.There is no abdominal lymphadenopathy. The urinary bladder is distended with fluid and appears normal. The prostate contains foci of calcification. A small amount of free pelvic fluid is seen. There is no pelvic lymphadenopathy. Bone windows demonstrate no suspicious lytic or blastic lesions. The visible osseous structures are intact. Mild multilevel degenerative changes are present in the spine. IMPRESSION: 1. No acute visceral, vascular, or osseus injury identified in thechest, abdomen, or pelvis. 2. Hepatic cirrhosis with sequela of portal hypertension. Dictated by Serena Syed MD (residential service technician). I, Dr. GITA FOREMAN M.D. have personally reviewed and interpretedthis examination/study. This report was electronically signed by GITA FOREMAN M.D. on 10/03/2018 10:53 AM . Alfred Thakkar DO CT ORDERABLES [...] 10/03/2018 10:26 AM . I, Dr. ALY MATHEWS have personally reviewed and interpreted this examination/study. This report was electronically signed by ALY MATHEWS ??on 10/03/2018 10:27 AM . Narrative 10/03/2018 [...] tissue abnormality is identified. Procedure Note Aly Mathews MD - 10/03/2018 EXAMINATION: 1. Computed tomography [...] report was electronically signed by ALY MATHEWS on10/03/2018 10:27 AM . Alfred Thakkar DO CT ORDERABLES * CT HEAD WO CONTRAST (10/02/2018 5:02 PM CDT) Anatomical [...] was electronically signed by ALY MATHEWS ??on 10/03/2018 10:27 AM . Narrative 10/03/2018 [...] tissue abnormality is identified. Procedure Note Aly Mathews MD - 10/03/2018 EXAMINATION: 1. Computed tomography [...] report was electronically signed by ALY MATHEWS on10/03/2018 10:27 AM . Alfred Thakkar DO CT ORDERABLES * XR CHEST 1VW PORTABLE (10/02/2018 4:15 PM CDT) Anatomical Region Laterality Modality Chest Radiographic Lynette ging 10/02/2018 4:15 PM CDT Impressions 10/04/2018 10:42 AM CDT IMPRESSION: 1.No acute pulmonary process. Report dictated by Efren Bauman M.D. (residential service technician). Dr. AN Londono M.D. have personally reviewed and interpreted this examination/study. This report was electronically signed by AN RICO M.D. ??on 10/04/2018 10:42 AM . Narrative 10/04/2018 10:42 AM CDT EXAMINATION: XR CHEST 1VW PORTABLE, 10/02/2018 4:15 PM HISTORY: trauma COMPARISON: No prior study is available for comparison. FINDINGS: There is no focal consolidation, pleural effusion, or pneumothorax. The cardiac silhouette is normal. The mediastinal silhouette is normal. The visible bony thorax is intact. Procedure Note An Rico MD - 10/04/2018 EXAMINATION: XR CHEST 1VW PORTABLE, 10/02/2018 4:15 PM HISTORY: trauma COMPARISON: No prior study is available for comparison. FINDINGS: There is no focal consolidation, pleural effusion, or pneumothorax. The cardiac silhouette is normal. The mediastinal silhouette is normal. The visible bony thorax is intact. IMPRESSION: 1.No acute pulmonary process. Report dictated by Efren Bauman M.D. (residential service technician). Dr. AN Londono M.D. have personally reviewed and interpreted this examination/study. This report was electronically signed by AN RICO M.D. on 10/04/2018 10:42 AM . Alfred Thakkar DO DIAGNOSTIC IMAGING O RDERABLES * XR PELVIS 1 OR 2VW (10/02/2018 4:14 PM CDT) Anatomical Region Laterality Modality Pelvis Radiographic Lynette ging 10/02/2018 4:13 PM CDT Impressions 10/04/2018 4:36 PM CDT IMPRESSION: No acute fracture identified. Report dictated by Efren Bauman M.D. (residential service technician). Dr. MICHELE Londono M.D. have personally reviewed and interpreted this examination/study. This report was electronically signed by MICHELE SINGH M.D. ??on 10/04/2018 4:36 PM . Narrative 10/04/2018 4:36 PM CDT EXAMINATION: XR PELVIS 1 OR 2VW HISTORY: trauma COMPARISON: No prior study is available for comparison. FINDINGS: No acute fracture is identified. The femoral heads appear well-seated within their respective acetabula. The pubic symphysis is intact. Bone density and texture are normal. The sacroiliac joints are normal. Procedure Note Michele Singh MD - 10/04/2018 EXAMINATION: XR PELVIS 1 OR 2VW HISTORY: trauma COMPARISON: No prior study is available for comparison. FINDINGS: No acute fracture is identified. The femoral heads appear well-seated within their respective acetabula. The pubic symphysis is intact. Bone density and texture are normal. The sacroiliac joints are normal. IMPRESSION: No acute fracture identified. Report dictated by Efren Bauman M.D. (residential service technician). I, Dr. MICHELE SINGH M.D. have personally reviewed and interpreted this examination/study. This report was electronically signed by IMCHELE SINGH M.D. on 10/04/2018 4:36 PM . Alfred Thakkar DO DIAGNOSTIC IMAGING O RDERABLES * (ABNORMAL) RBC MORPHOLOGY (10/02/2018 4:10 PM CDT) Platelet Estimate Decreased (A) Adequate 10/02/2018 4:46 PM CDT [facility] Anisocytosis 1+(A) None 10/02/2018 4:46 PM CDT [facility] Microcytes 1+(A) None 10/02/2018 4:46 PM CDT [facility] Hypochromia 1+(A) None 10/02/2018 4:46 PM CDT [facility] Ovalocytes 1+(A) None 10/02/2018 4:46 PM CDT [facility] Blood BLOOD SPECIMEN / Unknown Venipuncture / Unknown 10/02/2018 4:10 PM CDT 10/02/2018 4:12 PM CDT Alfred Thakkar DO LAB - HEMATOLOGY ORD ERABLES [facility] [address] [phone] * PTT [facility] (10/02/2018 4:10 PM CDT) APTT 36.9 23.0 - 38.4 Seconds 10/02/2018 4:44 PM CDT [facility] Comment: * Please Note: New therapeutic range for heparin therapy. * Suggested therapeutic range for full dose I.V. heparin therapy for venous thromboembolism is 65 to 103 seconds. Blood BLOOD SPECIMEN / Unknown Venipuncture / Unknown 10/02/2018 4:10 PM CDT 10/02/2018 4:12 PM CDT Alfred Thakkar DO LAB - COAGULATION OR DERABLES Performing Organization Address [facility] Co de Phone Number [address] [phone] * (ABNORMAL) PT-INR [facility] (10/02/2018 4:10 PM CDT) PT 15.9(H) 12.1 - 14.8 Seconds 10/02/2018 4:44 PM CDT [facility] INR 1.3 See Comment 10/02/2018 4:44 PM CDT [facility] Comment: The suggested therapeutic range for standard coumadin (warfarin) therapy is an INR of 2.0-3.0. For high-risk patients (Mechanical Mitral Valve Prosthesis, etc.), the suggested prophylactic therapeutic range is an INR of 2.5-3.5. Blood BLOOD SPECIMEN / Unknown Venipuncture / Unknown 10/02/2018 4:10 PM CDT 10/02/2018 4:12 PM CDT Alfred Thakkar DO LAB - COAGULATION OR DERABLES Performing Organization Address [facility] Co de Phone Number [address] [phone] * (ABNORMAL) CBC W AUTO DIFFERENTIAL (10/02/2018 4:10 PM CDT) WBC 4.8 3.5 - 10.5 10? 3 /uL 10/02/2018 4:34 PM CDT [facility] RBC 3.81(L) 4.30 - 5.70 10? 6 /uL 10/02/2018 4:34 PM [facility] Hemoglobin 10.0(L) 13.5 - 17.5 g/dL 10/02/2018 4:34 PM [facility] Hematocrit 31.1(L) 39.0 - 50.0 % 10/02/2018 4:34 PM [facility] MCV 81.6 81.0 - 97.0 fL 10/02/2018 4:34 PM [facility] MCH 26.2(L) 28.0 - 34.0 pg 10/02/2018 4:34 PM [facility] MCHC 32.2 32.0 - 36.0 g/dL 10/02/2018 4:34 PM [facility] Platelet Count 68(L) 150 - 400 10? 3 /uL 10/02/2018 4:34 PM [facility] Comment:This is an appended report. These results have been appended to a previously preliminary verified report. RDW-SD 67.1(H) 36.0 - 50.0 fL 10/02/2018 4:34 PM [facility] RDW-CV 22.5(H) 11.2 - 14.8 % 10/02/2018 4:34 PM [facility] MPV 9.2(L) 9.3 - 12.8 fL 10/02/2018 4:34 PM [facility] nRBC Absolute 0.00 0 10? 3 /uL 10/02/2018 4:34 PM [facility] nRBC Auto 0.0 0 /100 WBC 10/02/2018 4:34 PM [facility] Neutrophils % 58.3 35.0 - 70.0 % 10/02/2018 4:34 PM [facility] Lymphocytes % 23.5 19.7 - 55.1 % 10/02/2018 4:34 PM [facility] Monocytes % 13.6 3.0 - 15.0 % 10/02/2018 4:34 PM [facility] Eosinophils % 2.7 0.0 - 6.0 % 10/02/2018 4:34 PM [facility] Basophil % 1.5 0.0 - 1.5 % 10/02/2018 4:34 PM [facility] Neutrophils Absolute 2.8 1.6 - 7.0 10? 3 /uL 10/02/2018 4:34 PM T [facility] Lymphocyte Absolute 1.1 0.8 - 2.9 10? 3 /uL 10/02/2018 4:34 PM [facility] Monocytes Absolute 0.65 0.14 - 0.66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
--- OUTSIDE RECORDS SUMMARY | 2024-06-27 04:51 | XMS_ITS | Encounter Summary ---
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 [facility] MCV 88.8 81.0 - 97.0 fL 10/15/2018 5:21 AM [facility] MCH 27.9(L) 28.0 - 34.0 pg 10/15/2018 5:21 AM [facility] MCHC 31.4(L) 32.0 - 36.0 g/dL 10/15/2018 5:21 AM [facility] Platelet Count 316 150 - 400 10? 3 /uL 10/15/2018 5:21 AM [facility] RDW-SD 72.4(H) 36.0 - 50.0 fL 10/15/2018 5:21 AM [facility] RDW-CV 22.5(H) 11.2 - 14.8 % 10/15/2018 5:21 AM [facility] MPV 9.5 9.3 - 12.8 fL 10/15/2018 5:21 AM [facility] nRBC Absolute 0.00 0 10? 3 /uL 10/15/2018 5:21 AM [facility] nRBC Auto 0.0 0 /100 WBC 10/15/2018 5:21 AM [facility] Neutrophils % 63.9 35.0 - 70.0 % 10/15/2018 5:21 AM [facility] Lymphocytes % 17.0(L) 19.7 - 55.1 % 10/15/2018 5:21 AM [facility] Monocytes % 15.7(H) 3.0 - 15.0 % 10/15/2018 5:21 AM CDT [facility] Eosinophils % 1.7 0.0 - 6.0 % 10/15/2018 5:21 AM T [facility] Basophil % 1.4 0.0 - 1.5 % 10/15/2018 5:21 AM T [facility] Neutrophils Absolute 5.9 1.6 - 7.0 10? 3 /uL 10/15/2018 5:21 AM T [facility] Lymphocyte Absolute 1.6 0.8 - 2.9 10? 3 /uL 10/15/2018 5:21 AM T [facility] Monocytes Absolute 1.44(H) 0.14 - 0.66 10? 3 /uL 10/15/2018 5:21 AM T [facility] Eosinophils Absolute 0.16 0.00 - 0.45 10? 3 /uL 10/15/2018 5:21 AM [facility] Basophils Absolute 0.13(H) 0.00 - 0.06 10? 3 /uL 10/15/2018 5:21 AM [facility] Immature Granulocytes % 0.3 0.0 - 1.0 % 10/15/2018 5:21 AM [facility] Blood BLOOD SPECIMEN / Unknown Lab Venipuncture / Unknown 10/15/2018 4:54 AM CDT 10/15/2018 5:15 AM CDT Juancho Rhodes MD LAB - HEMATOLOGY ORD ERABLES Performing Organization Address City/State/[facility] Co de Phone Number [facility] [address] [phone] * (ABNORMAL) BASIC METABOLIC PANEL (CALCIUM TOTAL) (10/15/2018 4:54 AM CDT) BUN 4(L) 7 - 26 mg/dL 10/15/2018 5:36 AM [facility] Creatinine 0.6 0.6 - 1.2 mg/dL 10/15/2018 5:36 AM [facility] Sodium 138 136 - 145 mmol/L 10/15/2018 5:36 AM T [facility] Potassium 3.7 3.5 - 4.5 mmol/L 10/15/2018 5:36 AM T [facility] Chloride 109(H) 98 - 107 mmol/L 10/15/2018 5:36 AM [facility] CO2 17(L) 22 - 29 mmol/L 10/15/2018 5:36 AM [facility] Glucose 105 70 - 115 mg/dL 10/15/2018 5:36 AM [facility] Calcium 8.3(L) 8.4 - 10.2 mg/dL 10/15/2018 5:36 AM [facility] Anion Gap 16 8 - 18 10/15/2018 5:36 AM [facility] BUN/Creatinine Ratio 7 7 - 23 10/15/2018 5:36 AM [facility] Osmolality Calculated 283 270 - 300 mOsm/kg 10/15/2018 5:36 AM [facility] eGFR >60 >60 mL/min/1.7 3 m2 10/15/2018 5:36 AM [facility] Blood BLOOD SPECIMEN / Unknown Lab Venipuncture / Unknown 10/15/2018 4:54 AM CDT 10/15/2018 5:15 AM CDT Juancho Rhodes MD LAB - CHEMISTRY MIGUEL [facility] Organization Address City/State/ZIP Co de Phone Number [address] [phone] * XR WRIST LEFT 2VW (10/14/2018 6:54 AM CDT) Anatomical Region Laterality Modality Wrist / Hand Radiographic Lynette ging 10/14/2018 8:33 AM CDT Impressions 10/14/2018 12:49 PM CDT IMPRESSION: Splinted distal intra-articular radial fracture, unchanged in alignment. Report drafted by Carlos Manuel Avendaño M.D. (resident) This report was approved ??by Carlos Manuel Avendaño ?? on 10/14/2018 11:01 AM . I, Dr. HSAAN ALEJANDRE have personally reviewed and interpreted this examination/study. This report was electronically signed by SHAAN ALEJANDRE ??on 10/14/2018 12:49 PM . Narrative 10/14/2018 [...] Manuel Avendaño on 10/14/2018 11:01 AM . I, Dr. SHAAN ALEJANDRE have personally reviewed and interpreted this examination/study. This report was electronically signed by SHAAN ALEJANDRE on 10/14/201812:49 PM . Lupillo Baxter MD DIAGNOSTIC I MAGING ORDERABLES * PREPARE (CROSSMATCH) RBC UNIT(S), 1 Units (10/14/2018 4:21 AM CDT) Pathologist [facility] Unit Description LR Red Cells [facility] Unit ABO O [facility] Unit Rh POS [facility] Product Code RL5 [facility] Unit Donor # [id number] [facility] Unit Status released [facility] BLOO D [facility] Product Number [id number] [facility] Blood Type Barcode 5100 [facility] Blood Bank BLOOD SPECIMEN / Unknown 10/14/2018 4:21 AM CDT 10/14/2018 4:21 AM CDT Yusuf Velasco MD LAB - BLOOD BANK ORD ERABLES [facility] [address] * (ABNORMAL) RBC MORPHOLOGY (10/14/2018 4:04 AM CDT) Platelet Estimate Adequate Adequate 019 6:28 AM CDT [facility] Anisocytosis 1+(A) None 10/14/2018 6:28 AM CDT [facility] Hypochromia 1+(A) None 10/14/2018 6:28 AM CDT [facility] Polychromasia 1+(A) None 10/14/2018 6:28 AM CDT [facility] Target Cells 1+(A) None 10/14/2018 6:28 AM CDT [facility] Ovalocytes 1+(A) None 10/14/2018 6:28 AM CDT [facility] [place] Cells 1+(A) None 10/14/2018 6:28 AM CDT [facility] Blood BLOOD SPECIMEN / Unknown Lab Venipuncture / Unknown 10/14/2018 4:04 AM CDT 10/14/2018 4:16 AM CDT Juancho Rhodes MD LAB - HEMATOLOGY ORD ERABLES [address] [phone] * PHOSPHORUS BLOOD (10/14/2018 4:04 AM CDT) Phosphorus 3.1 2.3 - 4.7 mg/dL 10/14/2018 5:00 AM CDT [facility] Blood BLOOD SPECIMEN / Unknown Lab Venipuncture / Unknown 10/14/2018 4:04 AM CDT 10/14/2018 4:16 AM CDT Juancho Rhodes MD LAB - CHEMISTRY ORDE ALLA [address] [phone] * (ABNORMAL) MAGNESIUM BLOOD (10/14/2018 4:04 AM CDT) Magnesium 1.4(L) 1.6 - 2.6 mg/dL 10/14/2018 5:00 AM CDT [facility] Blood BLOOD SPECIMEN / Unknown Lab Venipuncture / Unknown 10/14/2018 4:04 AM CDT 10/14/2018 4:16 AM CDT Juancho Rhodes MD LAB - CHEMISTRY MIGUEL GOLD [facility] Organization Address City/State/ZIP Co de Phone Number [facility] [address] [phone] * (ABNORMAL) CBC W AUTO DIFFERENTIAL (10/14/2018 4:04 AM CDT) WBC 8.3 3.5 - 10.5 10? 3 /uL 10/14/2018 4:30 AM [facility] RBC 3.64(L) 4.30 - 5.70 10? 6 /uL 10/14/2018 4:30 AM [facility] Hemoglobin 10.0(L) 13.5 - 17.5 g/dL 10/14/2018 4:30 AM [facility] Hematocrit 31.5(L) 39.0 - 50.0 % 10/14/2018 4:30 AM [facility] MCV 86.5 81.0 - 97.0 fL 10/14/2018 4:30 AM [facility] MCH 27.5(L) 28.0 - 34.0 pg 10/14/2018 4:30 AM [facility] MCHC 31.7(L) 32.0 - 36.0 g/dL 10/14/2018 4:30 AM [facility] Platelet Count 279 150 - 400 10? 3 /uL 10/14/2018 4:30 AM [facility] RDW-SD 70.0(H) 36.0 - 50.0 fL 10/14/2018 4:30 AM [facility] RDW-CV 22.3(H) 11.2 - 14.8 % 10/14/2018 4:30 AM [facility] MPV 9.5 9.3 - 12.8 fL 10/14/2018 4:30 AM [facility] nRBC Absolute 0.00 0 10? 3 /uL 10/14/2018 4:30 AM [facility] nRBC Auto 0.0 0 /100 WBC 10/14/2018 4:30 AM [facility] Neutrophils % 67.2 35.0 - 70.0 % 10/14/2018 4:30 AM [facility] Lymphocytes % 15.6(L) 19.7 - 55.1 % 10/14/2018 4:30 AM [facility] Monocytes % 14.8 3.0 - 15.0 % 10/14/2018 4:30 AM [facility] Eosinophils % 0.8 0.0 - 6.0 % 10/14/2018 4:30 AM [facility] Basophil % 1.1 0.0 - 1.5 % 10/14/2018 4:30 AM [facility] Neutrophils Absolute 5.6 1.6 - 7.0 10? 3 /uL 10/14/2018 4:30 AM [facility] Lymphocyte Absolute 1.3 0.8 - 2.9 10? 3 /uL 10/14/2018 4:30 AM [facility] Monocytes Absolute 1.22(H) 0.14 - 0.66 10? 3 /uL 10/14/2018 4:30 AM [facility] Eosinophils Absolute 0.07 0.00 - 0.45 10? 3 /uL 10/14/2018 4:30 AM [facility] Basophils Absolute 0.09(H) 0.00 - 0.06 10? 3 /uL 10/14/2018 4:30 AM [facility] Immature Granulocytes % 0.5 0.0 - 1.0 % 10/14/2018 4:30 AM [facility] Blood BLOOD SPECIMEN / Unknown Lab Venipuncture / Unknown 10/14/2018 4:04 AM CDT 10/14/2018 4:16 AM CDT Juancho Rhodes MD LAB - HEMATOLOGY ORD ERABLES [address] [phone] * (ABNORMAL) BASIC METABOLIC PANEL (CALCIUM TOTAL) (10/14/2018 4:04 AM CDT) BUN 4(L) 7 - 26 mg/dL 10/14/2018 5:00 AM [facility] Creatinine 0.6 0.6 - 1.2 mg/dL 10/14/2018 5:00 AM [facility] Sodium 140 136 - 145 mmol/L 10/14/2018 5:00 AM [facility] Potassium 3.1(L) 3.5 - 4.5 mmol/L 10/14/2018 5:00 AM [facility] Chloride 108(H) 98 - 107 mmol/L 10/14/2018 5:00 AM [facility] CO2 20(L) 22 - 29 mmol/L 10/14/2018 5:00 AM [facility] Glucose 119(H) 70 - 115 mg/dL 10/14/2018 5:00 AM [facility] Calcium 8.3(L) 8.4 - 10.2 mg/dL 10/14/2018 5:00 AM [facility] Anion Gap 15 8 - 18 10/14/2018 5:00 AM [facility] BUN/Creatinine Ratio 7 7 - 23 10/14/2018 5:00 AM [facility] Osmolality Calculated 288 270 - 300 mOsm/kg 10/14/2018 5:00 AM [facility] eGFR >60 >60 mL/min/1.7 3 m2 10/14/2018 5:00 AM [facility] Blood BLOOD SPECIMEN / Unknown Lab Venipuncture / Unknown 10/14/2018 4:04 AM CDT 10/14/2018 4:16 AM [facility] Juancho Rhodes MD LAB - CHEMISTRY MIGUEL GOLD [facility] Organization Address City/State/ZIP Co de Phone Number [address] [phone] * TYPE + SCREEN PANEL (10/14/2018 4:04 AM T) Antibody Screen NEG 9 5:07 AM [facility] ABO Rh O POS 10/14/2018 5:07 AM [facility] Blood Bank BLOOD SPECIMEN / Unknown Lab Venipuncture / Unknown 10/14/2018 4:04 AM CDT 10/14/2018 4:19 AM CDT Yusuf Velasco MD LAB - BLOOD BANK ORD ERABLES [facility] [address] [place] [address], [facility] * XR CHEST 1VW PORTABLE (10/13/2018 4:36 AM CDT) Anatomical Region Laterality Modality Chest Radiographic Lynette ging 10/13/2018 8:18 AM CDT Impressions 10/13/2018 1:11 PM CDT IMPRESSION: 1.Unchanged diffuse bilateral interstitial and airspace opacities, which may be due to pulmonary vascular congestion versus infection. Report drafted by Carlos Manuel Avendaño M.D. (resident) Dr. TANNA Londono have personally reviewed and [...] by Carlos Manuel Avendaño M.D. (resident) Dr. TANNA Londono have personally reviewed and interpreted this examination/study. This report was electronically signed by TANNA COLON on 10/13/2018 1:11PM . Juancho Rhodes MD DIAGNOSTIC IMAGING O RDERABLES * (ABNORMAL) RBC MORPHOLOGY (10/12/2018 11:59 PM CDT) Anisocytosis 1+(A) None 10/13/2018 1:44 AM CDT [facility] Hypochromia 1+(A) None 10/13/2018 1:44 AM CDT [facility] Polychromasia Few(A) None 10/13/2018 1:44 AM CDT [facility] Target Cells 1+(A) None 10/13/2018 1:44 AM CDT [facility] Schistocytes Rare(A) None 10/13/2018 1:44 AM CDT [facility] Ovalocytes Rare(A) None 10/13/2018 1:44 AM CDT [facility] [place] Cells Few(A) None 10/13/2018 1:44 AM CDT [facility] Blood BLOOD SPECIMEN / Unknown Venipuncture / Unknown 10/12/2018 11:59 PM CDT 10/13/2018 12:07 AM CDT Juancho Rhodes MD LAB - HEMATOLOGY ORD ERABLES [address] [phone] * PHOSPHORUS BLOOD (10/12/2018 11:59 PM CDT) Phosphorus 2.9 2.3 - 4.7 mg/dL 10/13/2018 12:33 AM CDT [facility] Blood BLOOD SPECIMEN / Unknown Venipuncture / Unknown 10/12/2018 11:59 PM CDT 10/13/2018 12:07 AM CDT Juancho Rhodes MD LAB - CHEMISTRY ORDSukhwinder GOLD [address] [phone] * MAGNESIUM BLOOD (10/12/2018 11:59 PM CDT) Magnesium 2.0 1.6 - 2.6 mg/dL 10/13/2018 1:01 AM CDT [facility] Blood BLOOD SPECIMEN / Unknown Venipuncture / Unknown 10/12/2018 11:59 PM CDT 10/13/2018 12:07 AM CDT Juancho Rhodes MD LAB - CHEMISTRY ORDE ALLA [facility] Organization Address City/State/ZIP Co de Phone Number [facility] [address] [place] [address] * (ABNORMAL) BASIC METABOLIC PANEL (CALCIUM TOTAL) (10/12/2018 11:59 PM CDT) BUN 6(L) 7 - 26 mg/dL 10/13/2018 12:33 AM [facility] Creatinine 0.5(L) 0.6 - 1.2 mg/dL 10/13/2018 12:33 AM [facility] Sodium 137 136 - 145 mmol/L 10/13/2018 12:33 AM [facility] Potassium 3.5 3.5 - 4.5 mmol/L 10/13/2018 12:33 AM [facility] Chloride 105 98 - 107 mmol/L 10/13/2018 12:33 AM [facility] CO2 22 22 - 29 mmol/L 10/13/2018 12:33 AM [facility] Glucose 107 70 - 115 mg/dL 10/13/2018 12:33 AM [facility] Calcium 8.7 8.4 - 10.2 mg/dL 10/13/2018 12:33 AM [facility] Anion Gap 14 8 - 18 10/13/2018 12:33 AM [facility] BUN/Creatinine Ratio 12 7 - 23 10/13/2018 12:33 AM [facility] Osmolality Calculated 282 270 - 300 mOsm/kg 10/13/2018 12:33 AM [facility] eGFR >60 >60 mL/min/1.7 3 m2 10/13/2018 12:33 AM [facility] Blood BLOOD SPECIMEN / Unknown Venipuncture / Unknown 10/12/2018 11:59 PM CDT 10/13/2018 12:07 AM CDT Juancho Rhodes MD LAB - CHEMISTRY ORDE RABLES [facility] Organization Address City/State/ZIP Co de Phone Number [facility] [address] [phone] * (ABNORMAL) CBC W AUTO DIFFERENTIAL (10/12/2018 11:59 PM CDT) WBC 9.6 3.5 - 10.5 10? 3 /uL 10/13/2018 1:07 AM [facility] RBC 3.57(L) 4.30 - 5.70 10? 6 /uL 10/13/2018 1:07 AM [facility] Hemoglobin 10.0(L) 13.5 - 17.5 g/dL 10/13/2018 1:07 AM [facility] Hematocrit 31.3(L) 39.0 - 50.0 % 10/13/2018 1:07 AM [facility] MCV 87.7 81.0 - 97.0 fL 10/13/2018 1:07 AM [facility] MCH 28.0 28.0 - 34.0 pg 10/13/2018 1:07 AM [facility] MCHC 31.9(L) 32.0 - 36.0 g/dL 10/13/2018 1:07 AM [facility] Platelet Count 239 150 - 400 10? 3 /uL 10/13/2018 1:07 AM [facility] Comment:Confirmed by repeat analysis. RDW-SD 72.7(H) 36.0 - 50.0 fL 10/13/2018 1:07 AM [facility] RDW-CV 22.5(H) 11.2 - 14.8 % 10/13/2018 1:07 AM [facility] MPV 10.3 9.3 - 12.8 fL 10/13/2018 1:07 AM [facility] nRBC Absolute 0.00 0 10? 3 /uL 10/13/2018 1:07 AM [facility] nRBC Auto 0.0 0 /100 WBC 10/13/2018 1:07 AM [facility] Neutrophils % 70.5(H) 35.0 - 70.0 % 10/13/2018 1:07 AM [facility] Lymphocytes % 13.6(L) 19.7 - 55.1 % 10/13/2018 1:07 AM [facility] Monocytes % 14.1 3.0 - 15.0 % 10/13/2018 1:07 AM [facility] Eosinophils % 0.6 0.0 - 6.0 % 10/13/2018 1:07 AM [facility] Basophil % 0.8 0.0 - 1.5 % 10/13/2018 1:07 AM [facility] Neutrophils Absolute 6.7 1.6 - 7.0 10? 3 /uL 10/13/2018 1:07 AM [facility] Lymphocyte Absolute 1.3 0.8 - 2.9 10? 3 /uL 10/13/2018 1:07 AM [facility] Monocytes Absolute 1.35(H) 0.14 - 0.66 10? 3 /uL 10/13/2018 1:07 AM [facility] Eosinophils Absolute 0.06 0.00 - 0.45 10? 3 /uL 10/13/2018 1:07 AM [facility] Basophils Absolute 0.08(H) 0.00 - 0.06 10? 3 /uL 10/13/2018 1:07 AM [facility] Immature Granulocytes % 0.4 0.0 - 1.0 % 10/13/2018 1:07 AM [facility] Blood BLOOD SPECIMEN / Unknown Venipuncture / Unknown 10/12/2018 11:59 PM CDT 10/13/2018 12:07 AM CDT Juancho Rhodes MD LAB - HEMATOLOGY ORD ERABLES [facility] [address] [phone] * XR CHEST 1VW PORTABLE (10/12/2018 4:07 [...] 7.52(H) 7.35 - 7.45 10/12/2018 1:41 PM [facility] pCO2 Arterial 32(L) 35 - 45 mmHg 10/12/2018 1:41 PM [facility] pO2 Arterial 75(L) 77 - 101 mmHg 10/12/2018 1:41 PM [facility] HCO3 Arterial 25.6 22.0 - 26.0 mmol/L 10/12/2018 1:41 PM [facility] TCO2 Arterial 26.6 25.0 - 29.0 mmol/L 10/12/2018 1:41 PM [facility] Base Excess Arterial 3.1(H) -2.0 - 2.0 mmol/L 10/12/2018 1:41 PM CDT [facility] Hemoglobin Arterial 10.9(L) 13.5 - 17.5 g/dL 10/12/2018 1:41 PM T [facility] Oxyhemoglobin Arterial 94.2(L) 95.0 - 100.0 % 10/12/2018 1:41 PM CDT [facility] Carboxyhemoglobin 0.3 0.0 - 3.0 % 10/12/2018 1:41 PM T [facility] Methemoglobin 0.2 0.0 - 2.0 % 10/12/2018 1:41 PM T [facility] FI O2 Arterial 21.0 % 10/12/2018 1:41 PM T [facility] Blood, arterial ARTERIAL BLOOD SPECIMEN / Unknown Arterial Puncture / Unknown 10/12/2018 1:27 PM CDT 10/12/2018 1:34 PM CDT Juancho Rhodes MD LAB - BLOOD GASES OR DERABLES [address] [phone] * XR CHEST 1VW PORTABLE (10/12/2018 4:15 [...] Avendaño ?? on 10/12/2018 10:11 AM . I, Dr. Dr. RAMOS AGUILAR MD have personally reviewed and interpreted this [...] Manuel Avendaño on 10/12/2018 10:11 AM . I, Dr. Dr. RAMOS AGUILAR MD have personally reviewed and interpretedthis examination/study. This report was electronically signed by Dr. RAMOS AGUILAR MD on 10/12/2018 10:53 AM . Juancho Rhodes MD DIAGNOSTIC IMAGING O RDERABLES * (ABNORMAL) RBC MORPHOLOGY (10/12/2018 12:06 AM CDT) Platelet Estimate Adequate Adequate 019 1:22 AM CDT [facility] Anisocytosis 1+(A) None 10/12/2018 1:22 AM CDT [facility] Poikilocytes Occasional( A) None 10/12/2018 1:22 AM CDT [facility] Hypochromia 1+(A) None 10/12/2018 1:22 AM CDT [facility] Polychromasia Occasional( A) None 10/12/2018 1:22 AM CDT [facility] Target Cells 1+(A) None 10/12/2018 1:22 AM CDT [facility] Schistocytes Occasional( A) None 10/12/2018 1:22 AM CDT [facility] Ovalocytes Occasional( A) None 10/12/2018 1:22 AM CDT [facility] Blood BLOOD SPECIMEN / Unknown Venipuncture / Unknown 10/12/2018 12:06 AM CDT 10/12/2018 12:14 AM CDT Juancho Rhodes MD LAB - HEMATOLOGY ORD ASHLEY [address] [phone] * PHOSPHORUS BLOOD (10/12/2018 12:06 AM CDT) Phosphorus 2.8 2.3 - 4.7 mg/dL 10/12/2018 12:51 AM CDT [facility] Blood BLOOD SPECIMEN / Unknown Venipuncture / Unknown 10/12/2018 12:06 AM CDT 10/12/2018 12:14 AM CDT Juancho Rhodes MD LAB - CHEMISTRY MIGUEL GOLD Performing Organization Address [facility] Co de Phone Number [address] [phone] * (ABNORMAL) MAGNESIUM BLOOD (10/12/2018 12:06 AM CDT) Magnesium 1.2(L) 1.6 - 2.6 mg/dL 10/12/2018 12:58 AM CDT [facility] Blood BLOOD SPECIMEN / Unknown Venipuncture / Unknown 10/12/2018 12:06 AM CDT 10/12/2018 12:14 AM CDT Juancho Rhodes MD LAB - CHEMISTRY MIGUEL GOLD Performing Organization Address [facility]/ZIP Co de Phone Number [address] [phone] * (ABNORMAL) BASIC METABOLIC PANEL (CALCIUM TOTAL) (10/12/2018 12:06 AM CDT) Pathologist [facility] BUN 6(L) 7 - 26 mg/dL 10/12/2018 12:57 AM [facility] Creatinine 0.4(L) 0.6 - 1.2 mg/dL 10/12/2018 12:57 AM [facility] Sodium 138 136 - 145 mmol/L 10/12/2018 12:57 AM [facility] Potassium 3.0(L) 3.5 - 4.5 mmol/L 10/12/2018 12:57 AM [facility] Chloride 109(H) 98 - 107 mmol/L 10/12/2018 12:57 AM [facility] CO2 22 22 - 29 mmol/L 10/12/2018 12:57 AM [facility] Glucose 108 70 - 115 mg/dL 10/12/2018 12:57 AM [facility] Calcium 7.3(L) 8.4 - 10.2 mg/dL 10/12/2018 12:57 AM [facility] Anion Gap 10 8 - 18 10/12/2018 12:57 AM [facility] BUN/Creatinine Ratio 15 7 - 23 10/12/2018 12:57 AM [facility] Osmolality Calculated 284 270 - 300 mOsm/kg 10/12/2018 12:57 AM [facility] eGFR >60 >60 mL/min/1.7 3 m2 10/12/2018 12:57 AM [facility] Blood BLOOD SPECIMEN / Unknown Venipuncture / Unknown 10/12/2018 12:06 AM CDT 10/12/2018 12:14 AM T Juancho Rhodes MD LAB - CHEMISTRY MIGUEL GOLD [facility] Organization Address City/State/ZIP Co de Phone Number [facility] [address] [place] [address] * (ABNORMAL) CBC W AUTO DIFFERENTIAL (10/12/2018 12:06 AM CDT) Pathologist [facility] WBC 7.5 3.5 - 10.5 10? 3 /uL 10/12/2018 12:31 AM [facility] RBC 3.17(L) 4.30 - 5.70 10? 6 /uL 10/12/2018 12:31 AM [facility] Hemoglobin 8.9(L) 13.5 - 17.5 g/dL 10/12/2018 12:31 AM [facility] Hematocrit 28.0(L) 39.0 - 50.0 % 10/12/2018 12:31 AM [facility] MCV 88.3 81.0 - 97.0 fL 10/12/2018 12:31 AM [facility] MCH 28.1 28.0 - 34.0 pg 10/12/2018 12:31 AM [facility] MCHC 31.8(L) 32.0 - 36.0 g/dL 10/12/2018 12:31 AM [facility] Platelet Count 155 150 - 400 10? 3 /uL 10/12/2018 12:31 AM [facility] RDW-SD 72.6(H) 36.0 - 50.0 fL 10/12/2018 12:31 AM [facility] RDW-CV 22.2(H) 11.2 - 14.8 % 10/12/2018 12:31 AM [facility] MPV 10.3 9.3 - 12.8 fL 10/12/2018 12:31 AM [facility] nRBC Absolute 0.00 0 10? 3 /uL 10/12/2018 12:31 AM [facility] nRBC Auto 0.0 0 /100 WBC 10/12/2018 12:31 AM [facility] Neutrophils % 73.9(H) 35.0 - 70.0 % 10/12/2018 12:31 AM [facility] Lymphocytes % 10.2(L) 19.7 - 55.1 % 10/12/2018 12:31 AM [facility] Monocytes % 14.2 3.0 - 15.0 % 10/12/2018 12:31 AM [facility] Eosinophils % 0.5 0.0 - 6.0 % 10/12/2018 12:31 AM [facility] Basophil % 0.7 0.0 - 1.5 % 10/12/2018 12:31 AM [facility] Neutrophils Absolute 5.6 1.6 - 7.0 10? 3 /uL 10/12/2018 12:31 AM CDT [facility] Lymphocyte Absolute 0.8 0.8 - 2.9 10? 3 /uL 10/12/2018 12:31 AM CDT [facility] Monocytes Absolute 1.07(H) 0.14 - 0.66 10? 3 /uL 10/12/2018 12:31 AM T [facility] Eosinophils Absolute 0.04 0.00 - 0.45 10? 3 /uL 10/12/2018 12:31 AM T [facility] Basophils Absolute 0.05 0.00 - 0.06 10? 3 /uL 10/12/2018 12:31 AM T [facility] Immature Granulocytes % 0.5 0.0 - 1.0 % 10/12/2018 12:31 AM [facility] Blood BLOOD SPECIMEN / Unknown Venipuncture / Unknown 10/12/2018 12:06 AM CDT 10/12/2018 12:14 AM CDT Juancho Rhodes MD LAB - HEMATOLOGY ORD ERABLES [address] [phone] * AMMONIA (10/12/2018 12:06 AM CDT) Ammonia 31 11 - 64 umol/L 10/12/2018 12:44 AM [facility] Blood BLOOD SPECIMEN / Unknown Lab Venipuncture / Unknown 10/12/2018 12:06 AM CDT 10/12/2018 12:17 AM CDT Juancho Rhodes MD LAB - CHEMISTRY ORDE RABEMILE [address] [phone] * (ABNORMAL) HEPATIC FUNCTION PANEL (10/12/2018 12:06 AM CDT) Protein Total 5.0(L) 6.0 - 8.3 g/dL 019 12:51 AM CDT H [facility] Albumin 1.6(L) 3.4 - 5.0 g/dL 10/12/2018 12:51 AM [facility] Bilirubin Total 2.8(H) 0.2 - 1.2 mg/dL 09/17 12:51 AM [facility] Bilirubin Conjugated 2.0(H) 0.0 - 0.5 mg/dL 10/12/2018 12:51 AM [facility] Bilirubin Unconjugated 0.8 Unconjugated Bilirubin is a calculated value: Reference ranges have not been established. mg/dL 10/12/2018 12:51 AM [facility] Alkaline Phosphatase 103 40 - 150 Units/L 10/12/2018 12:51 AM [facility] ALT 26 0 - 55 Units/L 10/12/2018 12:51 AM [facility] AST 105(H) 5 - 34 Units/L 10/12/2018 12:51 AM [facility] Albumin/Globulin Ratio 0.5(L) 1.1 - 2.3 10/12/2018 12:51 AM [facility] Blood BLOOD SPECIMEN / Unknown Lab Venipuncture / Unknown 10/12/2018 12:06 AM CDT 10/12/2018 12:17 AM CDT Juancho Rhodes MD LAB - CHEMISTRY STACEYE [facility] Organization Address [facility]/State/[facility] Co de Phone Number [facility] [address] [place] [address] * HIV-1 HIV-2 ANTIGEN/ANTIBODY (10/12/2018 12:06 AM CDT) HIV Antigen/Antibod y 1 & 2 Non-reacti ve Non-react maureen 10/12/2018 1:05 AM [facility] Comment: Neither HIV-1 p24 Antigen nor HIV-1/HIV-2 Antibodies are detected. ? Blood BLOOD SPECIMEN / Unknown Lab Venipuncture / Unknown 10/12/2018 12:06 AM CDT 10/12/2018 12:17 AM CDT Juancho Rhodes MD LAB - HEMATOLOGY ORD ERABLES Performing Organization Address [facility]/ZIP Co de Phone Number [address] [phone] * SYPHILIS ANTIBODY CASCADING REFLEX (10/12/2018 12:06 AM CDT) Treponema pallidum Antibody Non-react maureen Non-react maureen 10/12/2018 1:05 AM CDT [facility] Comment: No Laboratory evidence of syphilis infection. ?? Note: ??Circulating antibodies may be low or undetectable in early infection. ??If recent exposure is suspected, re-draw sample in 2-4 weeks and repeat testing. Blood BLOOD SPECIMEN / Unknown Lab Venipuncture / Unknown 10/12/2018 12:06 AM CDT 10/12/2018 12:17 AM CDT Juancho Rhodes MD LAB - SEROLOGY ORDER WILLIAN Performing Organization Address [facility]/ZIP Co de Phone Number [address] [phone] * VITAMIN B1 (10/12/2018 12:06 AM CDT) Pathologist [facility] Vitamin B1 Whole Blood 175.9 66.5 - 200.0 nmol/L 10/17/2018 6:15 AM CDT [facility] ([facility]) Comment: This test was developed and its performance characteristics determined by [facility]. It has not been cleared or approved by the Food and Drug Administration. Blood BLOOD SPECIMEN / Unknown Lab Venipuncture / Unknown 10/12/2018 12:06 AM CDT 10/12/2018 12:17 AM CDT Narrative [facility] ([facility]) - 10/17/2018 6:15 AM CDT Performed at: ??01 - [facility] [address] ??[id number] Landing Scaler: Alex Wilcox MD, Phone: ??[phone] Juacnho Rhodes MD LAB - CHEMISTRY MIGUEL GOLD Performing Organization Address City/[facility]/ZIP Co de Phone Number [facility] ([facility]) [address] [phone] * HOMOCYSTEINE BLOOD QUANTITATIVE (10/12/2018 12:06 AM CDT) Homocysteine 5.2 4.4 - 16.2 umol/L 10/12/2018 1:24 AM CDT [facility] Blood BLOOD SPECIMEN / Unknown Lab Venipuncture / Unknown 10/12/2018 12:06 AM CDT 10/12/2018 12:17 AM CDT Juancho Rhodes MD LAB - CHEMISTRY MIGUEL GOLD Performing Organization Address [facility] Co de Phone Number [address] [phone] * (ABNORMAL) FOLATE (10/12/2018 12:06 AM CDT) Folate 6.5(L) 7.0 - 31.4 ng/mL 10/12/2018 1:59 AM CDT [facility] Blood BLOOD SPECIMEN / Unknown Lab Venipuncture / Unknown 10/12/2018 12:06 AM CDT 10/12/2018 12:17 AM CDT Juancho Rhodes MD LAB - CHEMISTRY MIGUEL GOLD Performing Organization Address [facility] Co de Phone Number [address] [phone] * XR CHEST 1VW (10/11/2018 5:12 AM [...] Estimate Adequate Adequate 019 1:49 AM CDT [facility] Anisocytosis 1+(A) None 10/11/2018 1:49 AM CDT [facility] Hypochromia 1+(A) None 10/11/2018 1:49 AM CDT [facility] Polychromasia Occasional( A) None 10/11/2018 1:49 AM CDT [facility] Target Cells 1+(A) None 10/11/2018 1:49 AM CDT [facility] Ovalocytes Occasional( A) None 10/11/2018 1:49 AM CDT [facility] Blood BLOOD SPECIMEN / Unknown Venipuncture / Unknown 10/11/2018 12:04 AM CDT 10/11/2018 12:16 AM CDT Juancho Rhodes MD LAB - HEMATOLOGY ORD ASHLEY [address] [phone] * PHOSPHORUS BLOOD (10/11/2018 12:04 AM CDT) Phosphorus 3.6 2.3 - 4.7 mg/dL 10/11/2018 12:36 AM CDT [facility] Blood BLOOD SPECIMEN / Unknown Venipuncture / Unknown 10/11/2018 12:04 AM CDT 10/11/2018 12:16 AM CDT Juancho Rhodes MD LAB - CHEMISTRY MIGUEL GOLD Performing Organization Address [facility]/ZIP Co de Phone Number [address] [phone] * (ABNORMAL) MAGNESIUM BLOOD (10/11/2018 12:04 AM CDT) Magnesium 1.4(L) 1.6 - 2.6 mg/dL 10/11/2018 12:36 AM CDT [facility] Blood BLOOD SPECIMEN / Unknown Venipuncture / Unknown 10/11/2018 12:04 AM CDT 10/11/2018 12:16 AM CDT Juancho Rhodes MD LAB - CHEMISTRY MIGUEL GOLD Performing Organization Address [facility]/ZIP Co de Phone Number [address] [phone] * (ABNORMAL) BASIC METABOLIC PANEL (CALCIUM TOTAL) (10/11/2018 12:04 AM CDT) BUN 5(L) 7 - 26 mg/dL 10/11/2018 12:36 AM [facility] Creatinine 0.4(L) 0.6 - 1.2 mg/dL 10/11/2018 12:36 AM [facility] Sodium 135(L) 136 - 145 mmol/L 10/11/2018 12:36 AM [facility] Potassium 3.5 3.5 - 4.5 mmol/L 10/11/2018 12:36 AM [facility] Chloride 101 98 - 107 mmol/L 10/11/2018 12:36 AM [facility] CO2 26 22 - 29 mmol/L 10/11/2018 12:36 AM [facility] Glucose 142(H) 70 - 115 mg/dL 10/11/2018 12:36 AM [facility] Calcium 7.9(L) 8.4 - 10.2 mg/dL 10/11/2018 12:36 AM [facility] Anion Gap 12 8 - 18 10/11/2018 12:36 AM [facility] BUN/Creatinine Ratio 13 7 - 23 10/11/2018 12:36 AM [facility] Osmolality Calculated 280 270 - 300 mOsm/kg 10/11/2018 12:36 AM [facility] eGFR >60 >60 mL/min/1.7 3 m2 10/11/2018 12:36 AM [facility] Blood BLOOD SPECIMEN / Unknown Venipuncture / Unknown 10/11/2018 12:04 AM CDT 10/11/2018 12:16 AM T Juancho Rhodes MD LAB - CHEMISTRY MIGUEL GOLD [facility] Organization Address City/State/ZIP Co de Phone Number [facility] [address] [phone] * (ABNORMAL) CBC W AUTO DIFFERENTIAL (10/11/2018 12:04 AM CDT) WBC 5.4 3.5 - 10.5 10? 3 /uL 10/11/2018 1:11 AM [facility] RBC 3.49(L) 4.30 - 5.70 10? 6 /uL 10/11/2018 1:11 AM [facility] Hemoglobin 9.7(L) 13.5 - 17.5 g/dL 10/11/2018 1:11 AM [facility] Hematocrit 30.8(L) 39.0 - 50.0 % 10/11/2018 1:11 AM [facility] MCV 88.3 81.0 - 97.0 fL 10/11/2018 1:11 AM [facility] MCH 27.8(L) 28.0 - 34.0 pg 10/11/2018 1:11 AM [facility] MCHC 31.5(L) 32.0 - 36.0 g/dL 10/11/2018 1:11 AM [facility] Platelet Count 157 150 - 400 10? 3 /uL 10/11/2018 1:11 AM [facility] RDW-SD 70.9(H) 36.0 - 50.0 fL 10/11/2018 1:11 AM [facility] RDW-CV 22.0(H) 11.2 - 14.8 % 10/11/2018 1:11 AM [facility] MPV 10.7 9.3 - 12.8 fL 10/11/2018 1:11 AM [facility] nRBC Absolute 0.00 0 10? 3 /uL 10/11/2018 1:11 AM [facility] nRBC Auto 0.0 0 /100 WBC 10/11/2018 1:11 AM [facility] Neutrophils % 54.7 35.0 - 70.0 % 10/11/2018 1:11 AM [facility] Lymphocytes % 20.1 19.7 - 55.1 % 10/11/2018 1:11 AM [facility] Monocytes % 19.8(H) 3.0 - 15.0 % 10/11/2018 1:11 AM [facility] Eosinophils % 3.3 0.0 - 6.0 % 10/11/2018 1:11 AM [facility] Basophil % 1.7(H) 0.0 - 1.5 % 10/11/2018 1:11 AM [facility] Neutrophils Absolute 3.0 1.6 - 7.0 10? 3 /uL 10/11/2018 1:11 AM T [facility] Lymphocyte Absolute 1.1 0.8 - 2.9 10? 3 /uL 10/11/2018 1:11 AM CDT [facility] Monocytes Absolute 1.07(H) 0.14 - 0.66 10? 3 /uL 10/11/2018 1:11 AM T [facility] Eosinophils Absolute 0.18 0.00 - 0.45 10? 3 /uL 10/11/2018 1:11 AM T [facility] Basophils Absolute 0.09(H) 0.00 - 0.06 10? 3 /uL 10/11/2018 1:11 AM [facility] Immature Granulocytes % 0.4 0.0 - 1.0 % 10/11/2018 1:11 AM [facility] Blood BLOOD SPECIMEN / Unknown Venipuncture / Unknown 10/11/2018 12:04 AM CDT 10/11/2018 12:16 AM CDT Juancho Rhodes MD LAB - HEMATOLOGY ORD ERABLES [address] [phone] * EKG 12-LEAD (10/10/2018 4:26 PM CDT) Ventricular Rate 64 BPM [facility] Atrial Rate 64 BPM [facility] P-R Interval 170 ms [facility] QRS Duration ms 92 ms [facility] Q-T Interval ms 444 ms [facility] QTC Calculation (Bezet) 458 ms [facility] MUSE Calculated P [place] 25 degrees [facility] MUSE Calculated R [place] 35 degrees [facility] MUSE Calculated T [place] 29 degrees [facility] MUSE Interpretation EKG NORMAL SINUS RHYTHM NORMAL ECG WHEN COMPARED WITH ECG OF 03-OCT-2018 14:57, NO SIGNIFICANT CHANGE WAS FOUND Confirmed by Reji HERNANDEZ, KEIRA ([id number]), web content editor KACI ARANDA ([id number]) on 10/16/2018 1:49:31 PM [facility] MUSE 10/10/2018 4:26 PM CDT 10/16/2018 1:49 PM CDT Juancho Rhodes MD ECG ORDERABLES [facility] * XR CHEST 1VW PORTABLE (10/10/2018 [...] distended. Dictated by Harshil Lopez MD (resident). Dr. MICHELE Londono M.D. have personally reviewed [...] Avendaño ?? on 10/10/2018 2:25 PM . I, Dr. [...] 5.3 10? 3 /uL 10/10/2018 1:37 AM [facility] Total Cell Count 100 10/11/19 19 1:37 AM [facility] Neutrophils Absolute Manual 3.92 1.60 - 7.00 10? 3 /uL 10/10/2018 1:37 AM [facility] Comment:(BANDS+SEGS) x WBC = NEUT # (ANC) Lymphocyte Absolute Manual 0.58(L) 0.80 - 2.90 10? 3 /uL 10/10/2018 1:37 AM [facility] Monocytes Absolute Manual 0.64 0.14 - 0.66 10? 3 /uL 10/10/2018 1:37 AM [facility] Eosinophils Absolute Manual 0.11 0.00 - 0.22 10? 3 /uL 10/10/2018 1:37 AM CDT [facility] Neutrophil % Manual 74(H) 30 - 60 % 10/10/2018 1:37 AM T [facility] Lymphocyte % Manual 11(L) 20 - 45 % 10/10/2018 1:37 AM [facility] Monocytes % Manual 12(H) 2 - 10 % 10/10/2018 1:37 AM [facility] Eosinophils % Manual 2 1 - 6 % 10/10/2018 1:37 AM T [facility] Atypical Lymphocyte % Manual 1(H) 0 % 10/10/2018 1:37 AM T [facility] Platelet Estimate Slightly Decreased(A ) Adequate 10/10/2018 1:37 AM [facility] Anisocytosis 1+(A) None 10/10/2018 1:37 AM [facility] Hypochromia 1+(A) None 10/10/2018 1:37 AM [facility] Polychromasia Few(A) None 10/10/2018 1:37 AM [facility] Target Cells 1+(A) None 10/10/2018 1:37 AM [facility] Ovalocytes 1+(A) None 10/10/2018 1:37 AM [facility] Blood BLOOD SPECIMEN / Unknown Venipuncture / Unknown 10/10/2018 12:03 AM CDT 10/10/2018 12:32 AM CDT Juancho Rhodes MD LAB - HEMATOLOGY ORD ASHLEY Performing Organization Address City/[facility]/ZIP Co de Phone Number [facility] [address] [place] [address] * PHOSPHORUS BLOOD (10/10/2018 12:03 AM CDT) Phosphorus 3.2 2.3 - 4.7 mg/dL 10/10/2018 1:00 AM T [facility] Blood BLOOD SPECIMEN / Unknown Venipuncture / Unknown 10/10/2018 12:03 AM CDT 10/10/2018 12:37 AM CDT Juancho Rhodes MD LAB - CHEMISTRY ORDSukhwinder GOLD [facility] [address] [place] [address] * (ABNORMAL) MAGNESIUM BLOOD (10/10/2018 12:03 AM CDT) Magnesium 1.5(L) 1.6 - 2.6 mg/dL 10/10/2018 12:59 AM [facility] Blood BLOOD SPECIMEN / Unknown Venipuncture / Unknown 10/10/2018 12:03 AM CDT 10/10/2018 12:37 AM CDT Juancho Rhodes MD LAB - CHEMISTRY MIGUEL GODL [address] [phone] * (ABNORMAL) BASIC METABOLIC PANEL (CALCIUM TOTAL) (10/10/2018 12:03 AM CDT) Pathologist [facility] BUN 6(L) 7 - 26 mg/dL 10/10/2018 1:00 AM [facility] Creatinine 0.4(L) 0.6 - 1.2 mg/dL 10/10/2018 1:00 AM [facility] Sodium 136 136 - 145 mmol/L 10/10/2018 1:00 AM [facility] Potassium 3.5 3.5 - 4.5 mmol/L 10/10/2018 1:00 AM [facility] Chloride 107 98 - 107 mmol/L 10/10/2018 1:00 AM [facility] CO2 22 22 - 29 mmol/L 10/10/2018 1:00 AM [facility] Glucose 128(H) 70 - 115 mg/dL 10/10/2018 1:00 AM [facility] Calcium 7.4(L) 8.4 - 10.2 mg/dL 10/10/2018 1:00 AM [facility] Anion Gap 11 8 - 18 10/10/2018 1:00 AM [facility] BUN/Creatinine Ratio 15 7 - 23 10/10/2018 1:00 AM [facility] Osmolality Calculated 281 270 - 300 mOsm/kg 10/10/2018 1:00 AM [facility] eGFR >60 >60 mL/min/1.7 3 m2 10/10/2018 1:00 AM [facility] Blood BLOOD SPECIMEN / Unknown Venipuncture / Unknown 10/10/2018 12:03 AM CDT 10/10/2018 12:37 AM CDT Juancho Rhodes MD LAB - CHEMISTRY MIGUEL GOLD [facility] Organization Address City/State/ZIP Co de Phone Number [facility] [address] [phone] * (ABNORMAL) CBC W AUTO DIFFERENTIAL (10/10/2018 12:03 AM CDT) WBC 5.3 3.5 - 10.5 10? 3 /uL 10/10/2018 1:11 AM [facility] RBC 3.18(L) 4.30 - 5.70 10? 6 /uL 10/10/2018 1:11 AM [facility] Hemoglobin 8.9(L) 13.5 - 17.5 g/dL 10/10/2018 1:11 AM [facility] Hematocrit 28.1(L) 39.0 - 50.0 % 10/10/2018 1:11 AM [facility] MCV 88.4 81.0 - 97.0 fL 10/10/2018 1:11 AM [facility] MCH 28.0 28.0 - 34.0 pg 10/10/2018 1:11 AM [facility] MCHC 31.7(L) 32.0 - 36.0 g/dL 10/10/2018 1:11 AM [facility] Platelet Count 129(L) 150 - 400 10? 3 /uL 10/10/2018 1:11 AM [facility] RDW-SD 72.7(H) 36.0 - 50.0 fL 10/10/2018 1:11 AM [facility] RDW-CV 22.5(H) 11.2 - 14.8 % 10/10/2018 1:11 AM [facility] MPV 11.1 9.3 - 12.8 fL 10/10/2018 1:11 AM CDT [facility] nRBC Absolute 0.00 0 10? 3 /uL 10/10/2018 1:11 AM CDT [facility] nRBC Auto 0.0 0 /100 WBC 10/10/2018 1:11 AM CDT [facility] Blood BLOOD SPECIMEN / Unknown Venipuncture / Unknown 10/10/2018 12:03 AM CDT 10/10/2018 12:32 AM CDT Juancho Rhodes MD LAB - HEMATOLOGY ORD ERABLES [facility] [address] [place] [address] * XR CHEST 1VW PORTABLE (10/09/2018 4:27 [...] M.D. on 10/10/2018 1:39 PM . Henrietta Millerold DO DIAGNOSTIC IMAGING O RDERABLES * (ABNORMAL) DIFFERENTIAL MANUAL (10/09/2018 12:00 AM T) WBC (corrected for NRBC) 5.5 10? 3 /uL 10/09/2018 12:58 AM [facility] Total Cell Count 100 10/10/19 19 12:58 AM [facility] Neutrophils Absolute Manual 3.85 1.60 - 7.00 10? 3 /uL 10/09/2018 12:58 AM [facility] Comment:(BANDS+SEGS) x WBC = NEUT # (ANC) Lymphocyte Absolute Manual 0.66(L) 0.80 - 2.90 10? 3 /uL 10/09/2018 12:58 AM [facility] Monocytes Absolute Manual 0.77(H) 0.14 - 0.66 10? 3 /uL 10/09/2018 12:58 AM [facility] Eosinophils Absolute Manual 0.11 0.00 - 0.22 10? 3 /uL 10/09/2018 12:58 AM [facility] Basophil Absolute Manual 0.11(H) 0.00 - 0.06 10? 3 /uL 10/09/2018 12:58 AM [facility] Band % Manual 2 0 - 10 % 10/09/2018 12:58 AM [facility] Neutrophil % Manual 68(H) 30 - 60 % 10/09/2018 12:58 AM [facility] Lymphocyte % Manual 12(L) 20 - 45 % 10/09/2018 12:58 AM [facility] Monocytes % Manual 14(H) 2 - 10 % 10/09/2018 12:58 AM [facility] Eosinophils % Manual 2 1 - 6 % 10/09/2018 12:58 AM [facility] Basophils % Manual 2 0 - 3 % 10/09/2018 12:58 AM [facility] Platelet Estimate Adequate Adequate 10/09/2018 12:58 AM [facility] Anisocytosis 1+(A) None 10/09/2018 12:58 AM [facility] Hypochromia 1+(A) None 10/09/2018 12:58 AM [facility] Ovalocytes Few(A) None 10/09/2018 12:58 AM [facility] Blood BLOOD SPECIMEN / Unknown Venipuncture / Unknown 10/09/2018 12:00 AM CDT 10/09/2018 12:12 AM CDT Juancho Rhodes MD LAB - HEMATOLOGY ORD ERABLES Performing Organization Address City/[facility]/ZIP Co de Phone Number [address] [phone] * (ABNORMAL) PHOSPHORUS BLOOD (10/09/2018 12:00 AM CDT) Phosphorus 2.1(L) 2.3 - 4.7 mg/dL 10/09/2018 12:32 AM T [facility] Blood BLOOD SPECIMEN / Unknown Venipuncture / Unknown 10/09/2018 12:00 AM CDT 10/09/2018 12:12 AM CDT Juancho Rhodes MD LAB - CHEMISTRY ORDSukhwinder GOLD [address] [place] [phone] * (ABNORMAL) MAGNESIUM BLOOD (10/09/2018 12:00 AM CDT) Magnesium 1.1(L) 1.6 - 2.6 mg/dL 10/09/2018 12:32 AM [facility] Blood BLOOD SPECIMEN / Unknown Venipuncture / Unknown 10/09/2018 12:00 AM CDT 10/09/2018 12:12 AM CDT Juancho Rhodes MD LAB - CHEMISTRY MIGUEL GOLD [facility] Organization Address City/State/ZIP Co de Phone Number [facility] [address] [phone] * (ABNORMAL) BASIC METABOLIC PANEL (CALCIUM TOTAL) (10/09/2018 12:00 AM CDT) BUN 6(L) 7 - 26 mg/dL 10/09/2018 12:32 AM [facility] Creatinine 0.4(L) 0.6 - 1.2 mg/dL 10/09/2018 12:32 AM [facility] Sodium 136 136 - 145 mmol/L 10/09/2018 12:32 AM [facility] Potassium 3.0(L) 3.5 - 4.5 mmol/L 10/09/2018 12:32 AM [facility] Chloride 110(H) 98 - 107 mmol/L 10/09/2018 12:32 AM [facility] CO2 20(L) 22 - 29 mmol/L 10/09/2018 12:32 AM [facility] Glucose 120(H) 70 - 115 mg/dL 10/09/2018 12:32 AM [facility] Calcium 6.9(L) 8.4 - 10.2 mg/dL 10/09/2018 12:32 AM [facility] Anion Gap 9 8 - 18 10/09/2018 12:32 AM [facility] BUN/Creatinine Ratio 15 7 - 23 10/09/2018 12:32 AM [facility] Osmolality Calculated 281 270 - 300 mOsm/kg 10/09/2018 12:32 AM [facility] eGFR >60 >60 mL/min/1.7 3 m2 10/09/2018 12:32 AM [facility] Blood BLOOD SPECIMEN / Unknown Venipuncture / Unknown 10/09/2018 12:00 AM CDT 10/09/2018 12:12 AM CDT Juancho Rhodes MD LAB - CHEMISTRY MIUGEL Guardado Organization Address City/State/ZIP Co de Phone Number [facility] [address] [place] [address] * (ABNORMAL) CBC W AUTO DIFFERENTIAL (10/09/2018 12:00 AM T) WBC 5.5 3.5 - 10.5 10? 3 /uL 10/09/2018 12:26 AM [facility] RBC 3.05(L) 4.30 - 5.70 10? 6 /uL 10/09/2018 12:26 AM [facility] Hemoglobin 8.4(L) 13.5 - 17.5 g/dL 10/09/2018 12:26 AM [facility] Hematocrit 26.8(L) 39.0 - 50.0 % 10/09/2018 12:26 AM [facility] MCV 87.9 81.0 - 97.0 fL 10/09/2018 12:26 AM [facility] MCH 27.5(L) 28.0 - 34.0 pg 10/09/2018 12:26 AM [facility] MCHC 31.3(L) 32.0 - 36.0 g/dL 10/09/2018 12:26 AM [facility] Platelet Count 102(L) 150 - 400 10? 3 /uL 10/09/2018 12:26 AM [facility] RDW-SD 73.2(H) 36.0 - 50.0 fL 10/09/2018 12:26 AM [facility] RDW-CV 22.8(H) 11.2 - 14.8 % 10/09/2018 12:26 AM [facility] MPV 10.2 9.3 - 12.8 fL 10/09/2018 12:26 AM [facility] nRBC Absolute 0.00 0 10? 3 /uL 10/09/2018 12:26 AM [facility] nRBC Auto 0.0 0 /100 WBC 10/09/2018 12:26 AM [facility] Blood BLOOD SPECIMEN / Unknown Venipuncture / Unknown 10/09/2018 12:00 AM CDT 10/09/2018 12:12 AM T Juancho Rhodes MD LAB - HEMATOLOGY ORD ERABLES [facility] [address] [phone] * (ABNORMAL) BLOOD GASES ARTERIAL (10/08/2018 9:26 AM [facility]) pH Arterial 7.48(H) 7.35 - 7.45 10/08/2018 9:58 AM [facility] pCO2 Arterial 34(L) 35 - 45 mmHg 10/08/2018 9:58 AM [facility] pO2 Arterial 106(H) 77 - 101 mmHg 10/08/2018 9:58 AM [facility] HCO3 Arterial 24.9 22.0 - 26.0 mmol/L 10/08/2018 9:58 AM [facility] TCO2 Arterial 26.0 25.0 - 29.0 mmol/L 10/08/2018 9:58 AM [facility] Base Excess Arterial 1.6 -2.0 - 2.0 mmol/L 10/08/2018 9:58 AM [facility] Hemoglobin Arterial 9.7(L) 13.5 - 17.5 g/dL 10/08/2018 9:58 AM [facility] Oxyhemoglobin Arterial 97.2 95.0 - 100.0 % 10/08/2018 9:58 AM [facility] Carboxyhemoglobin 0.2 0.0 - 3.0 % 10/08/2018 9:58 AM [facility] Methemoglobin 0.6 0.0 - 2.0 % 10/08/2018 9:58 AM [facility] FI O2 Arterial 40.0 % 10/08/2018 9:58 AM CDT [facility] Blood, arterial ARTERIAL BLOOD SPECIMEN / Unknown Arterial Puncture / Unknown 10/08/2018 9:26 AM CDT 10/08/2018 9:55 AM CDT Henrietta Landers DO LAB - BLOOD GASES OR DERABLES [facility] [address] [place] [address] * XR CHEST 1VW PORTABLE (10/08/2018 5:50 AM CDT) Anatomical Region Laterality Modality Chest Radiographic Lynette ging 10/08/2018 9:29 AM CDT Impressions 10/08/2018 2:56 PM CDT IMPRESSION: 1.Bibasilar and left retrocardiac atelectasis/airspace disease. 2.Trace left pleural effusion. Report drafted by Carlos Manuel Avendaño M.D. (resident) This report was approved ??by Carlos Manuel Avendaño ?? on 10/08/2018 2:[address] Alexandria Londono M.D. have personally reviewed and interpreted [...] Manuel Avendaño on 10/08/2018 2:41 PM . I, Dr. Alexandria HILLS M.D. have personally reviewed and interpretedthis examination/study. This report was electronically signed by Alexandria HILLS M.D. on 10/08/2018 2:56 PM . Henrietta Landers DO DIAGNOSTIC IMAGING O RDERABLES * (ABNORMAL) RBC MORPHOLOGY (10/08/2018 12:14 AM CDT) Platelet Estimate Decreased (A) Adequate 10/08/2018 12:57 AM CDT [facility] Anisocytosis 1+(A) None 10/08/2018 12:57 AM CDT [facility] Hypochromia 1+(A) None 10/08/2018 12:57 AM CDT [facility] Polychromasia Few(A) None 10/08/2018 12:57 AM CDT [facility] Target Cells 1+(A) None 10/08/2018 12:57 AM CDT [facility] [place] Cells 1+(A) None 10/08/2018 12:57 AM CDT [facility] Blood BLOOD SPECIMEN / Unknown Venipuncture / Unknown 10/08/2018 12:14 AM CDT 10/08/2018 12:32 AM CDT Juancho Rhodes MD LAB - HEMATOLOGY ORD ERABLES [facility] [address] [place] [address] * PHOSPHORUS BLOOD (10/08/2018 12:14 AM CDT) Phosphorus 2.8 2.3 - 4.7 mg/dL 10/08/2018 1:03 AM CDT [facility] Blood BLOOD SPECIMEN / Unknown Venipuncture / Unknown 10/08/2018 12:14 AM CDT 10/08/2018 12:32 AM CDT Juancho Rhodes MD LAB - CHEMISTRY MIGUEL GOLD [address] [phone] * MAGNESIUM BLOOD (10/08/2018 12:14 AM CDT) Pathologist [facility] Magnesium 2.2 1.6 - 2.6 mg/dL 10/08/2018 1:03 AM T [facility] Blood BLOOD SPECIMEN / Unknown Venipuncture / Unknown 10/08/2018 12:14 AM CDT 10/08/2018 12:32 AM CDT Juancho Rhodes MD LAB - CHEMISTRY MIGUEL GOLD Performing Organization Address [facility]/ZIP Co de Phone Number [address] [phone] * (ABNORMAL) BASIC METABOLIC PANEL (CALCIUM TOTAL) (10/08/2018 12:14 AM CDT) Pathologist [facility] BUN 7 7 - 26 mg/dL 10/08/2018 1:03 AM [facility] Creatinine 0.5(L) 0.6 - 1.2 mg/dL 10/08/2018 1:03 AM [facility] Sodium 133(L) 136 - 145 mmol/L 10/08/2018 1:03 AM [facility] Potassium 4.4 3.5 - 4.5 mmol/L 10/08/2018 1:03 AM [facility] Chloride 102 98 - 107 mmol/L 10/08/2018 1:03 AM [facility] CO2 25 22 - 29 mmol/L 10/08/2018 1:03 AM CDT [facility] Glucose 147(H) 70 - 115 mg/dL 10/08/2018 1:03 AM [facility] Calcium 8.0(L) 8.4 - 10.2 mg/dL 10/08/2018 1:03 AM [facility] Anion Gap 10 8 - 18 10/08/2018 1:03 AM [facility] BUN/Creatinine Ratio 14 7 - 23 10/08/2018 1:03 AM [facility] Osmolality Calculated 277 270 - 300 mOsm/kg 10/08/2018 1:03 AM [facility] eGFR >60 >60 mL/min/1.7 3 m2 10/08/2018 1:03 AM [facility] Blood BLOOD SPECIMEN / Unknown Venipuncture / Unknown 10/08/2018 12:14 AM CDT 10/08/2018 12:32 AM CDT Juancho hRodes MD LAB - CHEMISTRY MIGUEL GOLD [facility] Organization Address City/State/[facility] Co de Phone Number [address] [phone] * (ABNORMAL) CBC W AUTO DIFFERENTIAL (10/08/2018 12:14 AM CDT) WBC 5.2 3.5 - 10.5 10? 3 /uL 10/08/2018 12:36 AM [facility] RBC 3.26(L) 4.30 - 5.70 10? 6 /uL 10/08/2018 12:36 AM [facility] Hemoglobin 9.0(L) 13.5 - 17.5 g/dL 10/08/2018 12:36 AM [facility] Hematocrit 28.3(L) 39.0 - 50.0 % 10/08/2018 12:36 AM [facility] MCV 86.8 81.0 - 97.0 fL 10/08/2018 12:36 AM [facility] MCH 27.6(L) 28.0 - 34.0 pg 10/08/2018 12:36 AM [facility] MCHC 31.8(L) 32.0 - 36.0 g/dL 10/08/2018 12:36 AM [facility] Platelet Count 101(L) 150 - 400 10? 3 /uL 10/08/2018 12:36 AM [facility] RDW-SD 70.2(H) 36.0 - 50.0 fL 10/08/2018 12:36 AM [facility] RDW-CV 22.5(H) 11.2 - 14.8 % 10/08/2018 12:36 AM [facility] MPV 10.4 9.3 - 12.8 fL 10/08/2018 12:36 AM [facility] nRBC Absolute 0.00 0 10? 3 /uL 10/08/2018 12:36 AM [facility] nRBC Auto 0.0 0 /100 WBC 10/08/2018 12:36 AM [facility] Neutrophils % 64.5 35.0 - 70.0 % 10/08/2018 12:36 AM [facility] Lymphocytes % 14.0(L) 19.7 - 55.1 % 10/08/2018 12:36 AM [facility] Monocytes % 18.4(H) 3.0 - 15.0 % 10/08/2018 12:36 AM [facility] Eosinophils % 1.9 0.0 - 6.0 % 10/08/2018 12:36 AM [facility] Basophil % 0.8 0.0 - 1.5 % 10/08/2018 12:36 AM [facility] Neutrophils Absolute 3.4 1.6 - 7.0 10? 3 /uL 10/08/2018 12:36 AM [facility] Lymphocyte Absolute 0.7(L) 0.8 - 2.9 10? 3 /uL 10/08/2018 12:36 AM [facility] Monocytes Absolute 0.96(H) 0.14 - 0.66 10? 3 /uL 10/08/2018 12:36 AM [facility] Eosinophils Absolute 0.10 0.00 - 0.45 10? 3 /uL 10/08/2018 12:36 AM [facility] Basophils Absolute 0.04 0.00 - 0.06 10? 3 /uL 10/08/2018 12:36 AM [facility] Immature Granulocytes % 0.4 0.0 - 1.0 % 10/08/2018 12:36 AM CDT [facility] Blood BLOOD SPECIMEN / Unknown Venipuncture / Unknown 10/08/2018 12:14 AM CDT 10/08/2018 12:32 AM CDT Juancho Rhodes MD LAB - HEMATOLOGY ORD ERABLES Performing Organization Address City/[facility]/ZIP Co de Phone Number [facility] [address] [place] [address] * TYPE + SCREEN PANEL (10/08/2018 12:14 AM CDT) Antibody Screen NEG 9 1:31 AM CDT [facility] ABO Rh O POS 10/08/2018 1:31 AM CDT [facility] Blood Bank BLOOD SPECIMEN / Unknown Venipuncture / Unknown 10/08/2018 12:14 AM CDT 10/08/2018 12:43 AM CDT Reilly Freeman MD LAB - BLOOD BANK ORD ERABLES Performing Organization Address City/[facility] Co de Phone Number [facility] [address] [place] [address] * (ABNORMAL) CULTURE SPUTUM+GRAM STAIN (10/07/2018 11:30 [...] field Polymorphonuclear cells 10/09/2018 7:31 AM CDT [facility] Gram Stain Heavy Gram-positive cocci 10/09/2018 7:31 AM CDT [facility] Microbiology SPUTUM / Unknown Collection [...] Landers DO LAB - MICROBIOLOGY O RDERABLES [facility] MICROBIOLOG[facility] [address] [place] [address], [facility] [phone] * XR CHEST 1VW PORTABLE (10/07/2018 9:26 AM CDT) Anatomical Region Laterality Modality Chest Radiographic Lynette ging 10/07/2018 11:4 4 AM CDT Impressions 10/07/2018 9:33 PM CDT IMPRESSION: Slight increase in right basilar atelectasis; otherwise no change from prior exam. Dictated by Harshil Lopez M.D. (cath lab radiology technician). I, Dr. RAMOS NINO M.D. have [...] prior exam. Dictated by Harshil Lopez M.D. (cath lab radiology technician). I, Dr. RAMOS NINO M.D. have personally reviewed and interpretedthis examination/study. This report was electronically signed by RAMOS NINO M.D. on 10/07/2018 9:33 PM . Henrietta Anshul DO DIAGNOSTIC IMAGING O RDERABLES * (ABNORMAL) BLOOD GASES ARTERIAL (10/07/2018 9:00 AM CDT) pH Arterial 7.48(H) 7.35 - 7.45 10/07/2018 9:10 AM [facility] pCO2 Arterial 37 35 - 45 mmHg 10/07/2018 9:10 AM T [facility] pO2 Arterial 118(H) 77 - 101 mmHg 10/07/2018 9:10 AM [facility] HCO3 Arterial 26.6(H) 22.0 - 26.0 mmol/L 10/07/2018 9:10 AM T [facility] TCO2 Arterial 27.7 25.0 - 29.0 mmol/L 10/07/2018 9:10 AM [facility] Base Excess Arterial 3.0(H) -2.0 - 2.0 mmol/L 10/07/2018 9:10 AM [facility] Hemoglobin Arterial 8.8(L) 13.5 - 17.5 g/dL 10/07/2018 9:10 AM [facility] Oxyhemoglobin Arterial 97.5 95.0 - 100.0 % 10/07/2018 9:10 AM [facility] Carboxyhemoglobin 0.3 0.0 - 3.0 % 10/07/2018 9:10 AM [facility] Methemoglobin 0.6 0.0 - 2.0 % 10/07/2018 9:10 AM [facility] FI O2 Arterial 40.0 % 10/07/2018 9:10 AM [facility] Blood, arterial ARTERIAL BLOOD SPECIMEN / Unknown Arterial Puncture / Unknown 10/07/2018 9:00 AM CDT 10/07/2018 9:05 AM CDT Henrietta Landers DO LAB - BLOOD GASES OR DERABLES Performing Organization Address [facility]/State/[facility] Co de Phone Number [address] [phone] * XR CHEST 1VW PORTABLE (10/07/2018 4:27 [...] the stomach. Dictated by Harshil Lopez MD (cath lab radiology technician). Dr. AN Londono M.D. have personally [...] the stomach. Dictated by Harshil Lopez MD (cath lab radiology technician). I, Dr. AN RICO M.D. have personally reviewed and interpreted this examination/study. This report was electronically signed by AN RICO M.D. on 10/07/2018 10:59 AM . Juancho Rhodes MD DIAGNOSTIC IMAGING O RDERABLES * (ABNORMAL) RBC MORPHOLOGY (10/07/2018 12:07 AM CDT) Platelet Estimate Decreased (A) Adequate 10/07/2018 1:38 AM CDT [facility] Anisocytosis 1+(A) None 10/07/2018 1:38 AM CDT [facility] Hypochromia Occasiona l(A) None 10/07/2018 1:38 AM CDT [facility] Polychromasia Occasiona l(A) None 10/07/2018 1:38 AM CDT [facility] Target Cells 1+(A) None 10/07/2018 1:38 AM CDT [facility] Blood BLOOD SPECIMEN / Unknown Venipuncture / Unknown 10/07/2018 12:07 AM CDT 10/07/2018 12:10 AM CDT Juancho Rhodes MD LAB - HEMATOLOGY ORD ERABLES [facility] [address] [place] [address] * PHOSPHORUS BLOOD (10/07/2018 12:07 AM CDT) Phosphorus 3.2 2.3 - 4.7 mg/dL 10/07/2018 12:39 AM CDT [facility] Blood BLOOD SPECIMEN / Unknown Venipuncture / Unknown 10/07/2018 12:07 AM CDT 10/07/2018 12:10 AM CDT Juancho Rhodes MD LAB - CHEMISTRY MIGUEL GOLD Performing Organization Address [facility]/ZIP Co de Phone Number [address] [phone] * MAGNESIUM BLOOD (10/07/2018 12:07 AM CDT) Magnesium 2.0 1.6 - 2.6 mg/dL 10/07/2018 12:39 AM T [facility] Blood BLOOD SPECIMEN / Unknown Venipuncture / Unknown 10/07/2018 12:07 AM CDT 10/07/2018 12:10 AM CDT Juancho Rhodes MD LAB - CHEMISTRY MIGUEL GOLD Performing Organization Address [facility]/ZIP Co de Phone Number [address] [phone] * (ABNORMAL) BASIC METABOLIC PANEL (CALCIUM TOTAL) (10/07/2018 12:07 AM CDT) BUN 8 7 - 26 mg/dL 10/07/2018 12:39 AM [facility] Creatinine 0.5(L) 0.6 - 1.2 mg/dL 10/07/2018 12:39 AM [facility] Sodium 131(L) 136 - 145 mmol/L 10/07/2018 12:39 AM [facility] Potassium 3.7 3.5 - 4.5 mmol/L 10/07/2018 12:39 AM [facility] Chloride 96(L) 98 - 107 mmol/L 10/07/2018 12:39 AM [facility] CO2 26 22 - 29 mmol/L 10/07/2018 12:39 AM [facility] Glucose 101 70 - 115 mg/dL 10/07/2018 12:39 AM [facility] Calcium 8.5 8.4 - 10.2 mg/dL 10/07/2018 12:39 AM [facility] Anion Gap 13 8 - 18 10/07/2018 12:39 AM [facility] BUN/Creatinine Ratio 16 7 - 23 10/07/2018 12:39 AM [facility] Osmolality Calculated 270 270 - 300 mOsm/kg 10/07/2018 12:39 AM [facility] eGFR >60 >60 mL/min/1.7 3 m2 10/07/2018 12:39 AM [facility] Blood BLOOD SPECIMEN / Unknown Venipuncture / Unknown 10/07/2018 12:07 AM CDT 10/07/2018 12:10 AM T Juancho Rhodes MD LAB - CHEMISTRY MIGUEL GOLD [facility] Organization Address City/State/ZIP Co de Phone Number [facility] [address] [place] [address] * (ABNORMAL) CBC W AUTO DIFFERENTIAL (10/07/2018 12:07 AM [facility]) WBC 6.7 3.5 - 10.5 10? 3 /uL 10/07/2018 12:22 AM [facility] RBC 3.39(L) 4.30 - 5.70 10? 6 /uL 10/07/2018 12:22 AM [facility] Hemoglobin 9.3(L) 13.5 - 17.5 g/dL 10/07/2018 12:22 AM [facility] Hematocrit 29.4(L) 39.0 - 50.0 % 10/07/2018 12:22 AM [facility] MCV 86.7 81.0 - 97.0 fL 10/07/2018 12:22 AM [facility] MCH 27.4(L) 28.0 - 34.0 pg 10/07/2018 12:22 AM [facility] MCHC 31.6(L) 32.0 - 36.0 g/dL 10/07/2018 12:22 AM [facility] Platelet Count 85(L) 150 - 400 10? 3 /uL 10/07/2018 12:22 AM [facility] RDW-SD 67.8(H) 36.0 - 50.0 fL 10/07/2018 12:22 AM [facility] RDW-CV 22.2(H) 11.2 - 14.8 % 10/07/2018 12:22 AM [facility] MPV 10.3 9.3 - 12.8 fL 10/07/2018 12:22 AM [facility] nRBC Absolute 0.00 0 10? 3 /uL 10/07/2018 12:22 AM [facility] nRBC Auto 0.0 0 /100 WBC 10/07/2018 12:22 AM [facility] Neutrophils % 70.2(H) 35.0 - 70.0 % 10/07/2018 12:22 AM [facility] Lymphocytes % 13.5(L) 19.7 - 55.1 % 10/07/2018 12:22 AM [facility] Monocytes % 13.7 3.0 - 15.0 % 10/07/2018 12:22 AM [facility] Eosinophils % 1.7 0.0 - 6.0 % 10/07/2018 12:22 AM [facility] Basophil % 0.6 0.0 - 1.5 % 10/07/2018 12:22 AM [facility] Neutrophils Absolute 4.7 1.6 - 7.0 10? 3 /uL 10/07/2018 12:22 AM [facility] Lymphocyte Absolute 0.9 0.8 - 2.9 10? 3 /uL 10/07/2018 12:22 AM [facility] Monocytes Absolute 0.91(H) 0.14 - 0.66 10? 3 /uL 10/07/2018 12:22 AM [facility] Eosinophils Absolute 0.11 0.00 - 0.45 10? 3 /uL 10/07/2018 12:22 AM [facility] Basophils Absolute 0.04 0.00 - 0.06 10? 3 /uL 10/07/2018 12:22 AM [facility] Immature Granulocytes % 0.3 0.0 - 1.0 % 10/07/2018 12:22 AM [facility] Blood BLOOD SPECIMEN / Unknown Venipuncture / Unknown 10/07/2018 12:07 AM CDT 10/07/2018 12:10 AM CDT Juancho Rhodes MD LAB - HEMATOLOGY ORD ERABLES [place] [id number] [place] [address], [facility] [phone] * XR CHEST 1VW PORTABLE (10/06/2018 11:50 [...] body. Report dictated by Efren Bauman MD (cath lab radiology technician). Dr. JONAS Londono have personally reviewed [...] body. Report dictated by Efren Bauman MD (cath lab radiology technician). Dr. JONAS Londono have personally reviewed [...] normal. Report dictated by Efren Bauman M.D. (cath lab radiology technician). Dr. JONAS Londono have personally reviewed [...] normal. Report dictated by Efren Bauman M.D. (cath lab radiology technician). Dr. JONAS Londono have personally reviewed and interpreted this examination/study. This report was electronically signed by JONAS DONATO on 10/06/2018 2:44 PM . Juancho Rhodes MD DIAGNOSTIC IMAGING O RDERABLES * (ABNORMAL) BLOOD GASES ARTERIAL (10/06/2018 9:18 AM CDT) pH Arterial 7.36 7.35 - 7.45 10/06/2018 9:23 AM [facility] pCO2 Arterial 45 35 - 45 mmHg 10/06/2018 9:23 AM [facility] pO2 Arterial 143(H) 77 - 101 mmHg 10/06/2018 9:23 AM [facility] HCO3 Arterial 24.9 22.0 - 26.0 mmol/L 10/06/2018 9:23 AM [facility] TCO2 Arterial 26.3 25.0 - 29.0 mmol/L 10/06/2018 9:23 AM [facility] Base Excess Arterial -0.6 -2.0 - 2.0 mmol/L 10/06/2018 9:23 AM [facility] Hemoglobin Arterial 8.9(L) 13.5 - 17.5 g/dL 10/06/2018 9:23 AM [facility] Oxyhemoglobin Arterial 97.8 95.0 - 100.0 % 10/06/2018 9:23 AM [facility] Carboxyhemoglobin 0.2 0.0 - 3.0 % 10/06/2018 9:23 AM [facility] Methemoglobin 0.4 0.0 - 2.0 % 10/06/2018 9:23 AM [facility] FI O2 Arterial 40.0 % 10/06/2018 9:23 AM [facility] Blood, arterial ARTERIAL BLOOD SPECIMEN / Unknown Arterial Puncture / Unknown 10/06/2018 9:18 AM CDT 10/06/2018 9:20 AM CDT Juancho Rhodes MD LAB - BLOOD GASES OR DERABLES [place] [address] [phone] * (ABNORMAL) RBC MORPHOLOGY (10/06/2018 12:11 AM CDT) Platelet Estimate Decreased (A) Adequate 10/06/2018 1:04 AM [facility] Anisocytosis 1+(A) None 10/06/2018 1:04 AM T [facility] Hypochromia 1+(A) None 10/06/2018 1:04 AM [facility] Polychromasia 1+(A) None 10/06/2018 1:04 AM [facility] Target Cells 1+(A) None 10/06/2018 1:04 AM [facility] Tear Drop Cells Few(A) None 9 1:04 AM [facility] Blood BLOOD SPECIMEN / Unknown Venipuncture / Unknown 10/06/2018 12:11 AM CDT 10/06/2018 12:13 AM CDT Juancho Rhodes MD LAB - HEMATOLOGY ORD ERABLES Performing Organization Address City/State/[facility] Co de Phone Number [facility] [address] [place] [address] * (ABNORMAL) CBC W AUTO DIFFERENTIAL (10/06/2018 12:11 AM CDT) WBC 7.4 3.5 - 10.5 10? 3 /uL 10/06/2018 12:21 AM [facility] RBC 3.48(L) 4.30 - 5.70 10? 6 /uL 10/06/2018 12:21 AM [facility] Hemoglobin 9.4(L) 13.5 - 17.5 g/dL 10/06/2018 12:21 AM [facility] Hematocrit 29.8(L) 39.0 - 50.0 % 10/06/2018 12:21 AM [facility] MCV 85.6 81.0 - 97.0 fL 10/06/2018 12:21 AM [facility] MCH 27.0(L) 28.0 - 34.0 pg 10/06/2018 12:21 AM [facility] MCHC 31.5(L) 32.0 - 36.0 g/dL 10/06/2018 12:21 AM [facility] Platelet Count 69(L) 150 - 400 10? 3 /uL 10/06/2018 12:21 AM [facility] RDW-SD 65.0(H) 36.0 - 50.0 fL 10/06/2018 12:21 AM [facility] RDW-CV 21.3(H) 11.2 - 14.8 % 10/06/2018 12:21 AM [facility] MPV 9.9 9.3 - 12.8 fL 10/06/2018 12:21 AM [facility] nRBC Absolute 0.00 0 10? 3 /uL 10/06/2018 12:21 AM [facility] nRBC Auto 0.0 0 /100 WBC 10/06/2018 12:21 AM [facility] Neutrophils % 72.1(H) 35.0 - 70.0 % 10/06/2018 12:21 AM [facility] Lymphocytes % 11.2(L) 19.7 - 55.1 % 10/06/2018 12:21 AM [facility] Monocytes % 14.6 3.0 - 15.0 % 10/06/2018 12:21 AM [facility] Eosinophils % 1.2 0.0 - 6.0 % 10/06/2018 12:21 AM [facility] Basophil % 0.4 0.0 - 1.5 % 10/06/2018 12:21 AM [facility] Neutrophils Absolute 5.3 1.6 - 7.0 10? 3 /uL 10/06/2018 12:21 AM [facility] Lymphocyte Absolute 0.8 0.8 - 2.9 10? 3 /uL 10/06/2018 12:21 AM [facility] Monocytes Absolute 1.08(H) 0.14 - 0.66 10? 3 /uL 10/06/2018 12:21 AM [facility] Eosinophils Absolute 0.09 0.00 - 0.45 10? 3 /uL 10/06/2018 12:21 AM [facility] Basophils Absolute 0.03 0.00 - 0.06 10? 3 /uL 10/06/2018 12:21 AM [facility] Immature Granulocytes % 0.5 0.0 - 1.0 % 10/06/2018 12:21 AM CDT [facility] Blood BLOOD SPECIMEN / Unknown Venipuncture / Unknown 10/06/2018 12:11 AM CDT 10/06/2018 12:13 AM CDT Juancho Rhodes MD LAB - HEMATOLOGY ORD ASHLEY Performing Organization Address [facility]/ZIP Co de Phone Number [address] [phone] * PHOSPHORUS BLOOD (10/05/2018 11:53 PM CDT) Phosphorus 3.2 2.3 - 4.7 mg/dL 10/06/2018 12:32 AM CDT [facility] Blood BLOOD SPECIMEN / Unknown Venipuncture / Unknown 10/05/2018 11:53 PM CDT 10/05/2018 11:56 PM CDT Juancho Rhodes MD LAB - CHEMISTRY ORDSukhwinder GOLD Performing Organization Address [facility]/ZIP Co de Phone Number [address] [phone] * MAGNESIUM BLOOD (10/05/2018 11:53 PM CDT) Magnesium 1.8 1.6 - 2.6 mg/dL 10/06/2018 12:32 AM CDT [facility] Blood BLOOD SPECIMEN / Unknown Venipuncture / Unknown 10/05/2018 11:53 PM CDT 10/05/2018 11:56 PM CDT Juancho Rhodes MD LAB - CHEMISTRY ORDSukhwinder GOLD Performing Organization Address City/[facility]/ZIP Co de Phone Number [address] [phone] * (ABNORMAL) BASIC METABOLIC PANEL (CALCIUM TOTAL) (10/05/2018 11:53 PM CDT) BUN 6(L) 7 - 26 mg/dL 10/06/2018 12:32 AM CDT [facility] Creatinine 0.5(L) 0.6 - 1.2 mg/dL 10/06/2018 12:32 AM [facility] Sodium 130(L) 136 - 145 mmol/L 10/06/2018 12:32 AM [facility] Potassium 3.8 3.5 - 4.5 mmol/L 10/06/2018 12:32 AM [facility] Chloride 95(L) 98 - 107 mmol/L 10/06/2018 12:32 AM [facility] CO2 24 22 - 29 mmol/L 10/06/2018 12:32 AM [facility] Glucose 101 70 - 115 mg/dL 10/06/2018 12:32 AM [facility] Calcium 9.0 8.4 - 10.2 mg/dL 10/06/2018 12:32 AM [facility] Anion Gap 15 8 - 18 10/06/2018 12:32 AM [facility] BUN/Creatinine Ratio 12 7 - 23 10/06/2018 12:32 AM [facility] Osmolality Calculated 268(L) 270 - 300 mOsm/kg 10/06/2018 12:32 AM [facility] eGFR >60 >60 mL/min/1.7 3 m2 10/06/2018 12:32 AM [facility] Blood BLOOD SPECIMEN / Unknown Venipuncture / Unknown 10/05/2018 11:53 PM CDT 10/05/2018 11:56 PM CDT Juancho Rhodes MD LAB - CHEMISTRY [facility] [address] [phone] * PHOSPHORUS BLOOD (10/05/2018 2:16 AM CDT) Phosphorus 3.0 2.3 - 4.7 mg/dL 10/05/2018 2:43 AM T [facility] Blood BLOOD SPECIMEN / Unknown Lab Venipuncture / Unknown 10/05/2018 2:16 AM CDT 10/05/2018 2:21 AM CDT Emmanuelle Adams APRN-[employer] WORK[employer] LAB - CHEMISTRY ORDERABLES [address] [phone] * (ABNORMAL) MAGNESIUM BLOOD (10/05/2018 2:16 AM CDT) Pathologist [facility] Magnesium 1.4(L) 1.6 - 2.6 mg/dL 10/05/2018 2:43 AM [facility] Blood BLOOD SPECIMEN / Unknown Lab Venipuncture / Unknown 10/05/2018 2:16 AM CDT 10/05/2018 2:21 AM CDT Emmanuelle Adams APRN-[employer] WORK[employer] LAB - CHEMISTRY ORDERABLES [address] [phone] * (ABNORMAL) BASIC METABOLIC PANEL (CALCIUM TOTAL) (10/05/2018 2:16 AM CDT) [facility] BUN 5(L) 7 - 26 mg/dL 10/05/2018 2:43 AM [facility] Creatinine 0.6 0.6 - 1.2 mg/dL 10/05/2018 2:43 AM [facility] Sodium 134(L) 136 - 145 mmol/L 10/05/2018 2:43 AM [facility] Potassium 4.0 3.5 - 4.5 mmol/L 10/05/2018 2:43 AM [facility] Chloride 100 98 - 107 mmol/L 10/05/2018 2:43 AM [facility] CO2 25 22 - 29 mmol/L 10/05/2018 2:43 AM [facility] Glucose 100 70 - 115 mg/dL 10/05/2018 2:43 AM [facility] Calcium 8.9 8.4 - 10.2 mg/dL 10/05/2018 2:43 AM [facility] Anion Gap 13 8 - 18 10/05/2018 2:43 AM [facility] BUN/Creatinine Ratio 8 7 - 23 10/05/2018 2:43 AM [facility] Osmolality Calculated 275 270 - 300 mOsm/kg 10/05/2018 2:43 AM [facility] eGFR >60 >60 mL/min/1.7 3 m2 10/05/2018 2:43 AM [facility] Blood BLOOD SPECIMEN / Unknown Lab Venipuncture / Unknown 10/05/2018 2:16 AM CDT 10/05/2018 2:21 AM CDT Emmanuelle Rocio Adams HOIST [employer] LOADER-[employer] WORK[employer] LAB - CHEMISTRY ORDERABLES Performing Organization Address City/State/[facility] Co de Phone Number [facility] [address] [phone] * (ABNORMAL) CBC W/O DIFFERENTIAL (10/05/2018 2:16 AM CDT) WBC 5.6 3.5 - 10.5 10? 3 /uL 10/05/2018 2:30 AM [facility] RBC 3.38(L) 4.30 - 5.70 10? 6 /uL 10/05/2018 2:30 AM [facility] Hemoglobin 9.1(L) 13.5 - 17.5 g/dL 10/05/2018 2:30 AM [facility] Hematocrit 28.9(L) 39.0 - 50.0 % 10/05/2018 2:30 AM [facility] MCV 85.5 81.0 - 97.0 fL 10/05/2018 2:30 AM [facility] MCH 26.9(L) 28.0 - 34.0 pg 10/05/2018 2:30 AM [facility] MCHC 31.5(L) 32.0 - 36.0 g/dL 10/05/2018 2:30 AM [facility] Platelet Count 55(L) 150 - 400 10? 3 /uL 10/05/2018 2:30 AM [facility] RDW-SD 66.4(H) 36.0 - 50.0 fL 10/05/2018 2:30 AM [facility] RDW-CV 21.4(H) 11.2 - 14.8 % 10/05/2018 2:30 AM [facility] MPV 9.8 9.3 - 12.8 fL 10/05/2018 2:30 AM CDT [facility] nRBC Absolute 0.00 0 10? 3 /uL 10/05/2018 2:30 AM CDT [facility] nRBC Auto 0.0 0 /100 WBC 10/05/2018 2:30 AM CDT [facility] Blood BLOOD SPECIMEN / Unknown Lab Venipuncture / Unknown 10/05/2018 2:16 AM CDT 10/05/2018 2:21 AM CDT Emmanuelle Adams [employer] LO[employer]ER-[employer] WORK[employer] LAB - HEMATOLOGY ORDERABLES [address] [phone] * (ABNORMAL) RBC MORPHOLOGY (10/04/2018 9:27 AM CDT) Platelet Estimate Decreased (A) Adequate 10/04/2018 10:57 AM CDT [facility] Anisocytosis 1+(A) None 10/04/2018 10:57 AM CDT [facility] Hypochromia 2+(A) None 10/04/2018 10:57 AM CDT [facility] Polychromasia 1+(A) None 10/04/2018 10:57 AM T [facility] Target Cells 1+(A) None 10/04/2018 10:57 AM CDT [facility] Schistocytes Rare(A) None 10/04/2018 10:57 AM CDT [facility] Ovalocytes Rare(A) None 10/04/2018 10:57 AM CDT [facility] Blood BLOOD SPECIMEN / Unknown Lab Venipuncture / Unknown 10/04/2018 9:27 AM CDT 10/04/2018 9:48 AM CDT Emmanuelle Rocio Bryan HOIST CYLINDER LOADER-BABY FORMULA WORKER LAB - HEMATOLOGY ORDERABLES [address] [phone] * (ABNORMAL) CBC W AUTO DIFFERENTIAL (10/04/2018 9:27 AM CDT) WBC 5.6 3.5 - 10.5 10? 3 /uL 10/04/2018 10:20 AM [facility] RBC 3.42(L) 4.30 - 5.70 10? 6 /uL 10/04/2018 10:20 AM [facility] Hemoglobin 9.3(L) 13.5 - 17.5 g/dL 10/04/2018 10:20 AM [facility] Hematocrit 29.2(L) 39.0 - 50.0 % 10/04/2018 10:20 AM [facility] MCV 85.4 81.0 - 97.0 fL 10/04/2018 10:20 AM [facility] MCH 27.2(L) 28.0 - 34.0 pg 10/04/2018 10:20 AM [facility] MCHC 31.8(L) 32.0 - 36.0 g/dL 10/04/2018 10:20 AM [facility] Platelet Count 46(L) 150 - 400 10? 3 /uL 10/04/2018 10:20 AM [facility] RDW-SD 67.0(H) 36.0 - 50.0 fL 10/04/2018 10:20 AM [facility] RDW-CV 21.5(H) 11.2 - 14.8 % 10/04/2018 10:20 AM [facility] MPV 10.7 9.3 - 12.8 fL 10/04/2018 10:20 AM [facility] nRBC Absolute 0.00 0 10? 3 /uL 10/04/2018 10:20 AM [facility] nRBC Auto 0.0 0 /100 WBC 10/04/2018 10:20 AM [facility] Neutrophils % 71.0(H) 35.0 - 70.0 % 10/04/2018 10:20 AM [facility] Lymphocytes % 13.5(L) 19.7 - 55.1 % 10/04/2018 10:20 AM [facility] Monocytes % 12.8 3.0 - 15.0 % 10/04/2018 10:20 AM [facility] Eosinophils % 1.8 0.0 - 6.0 % 10/04/2018 10:20 AM CDT [facility] Basophil % 0.5 0.0 - 1.5 % 10/04/2018 10:20 AM T [facility] Neutrophils Absolute 3.9 1.6 - 7.0 10? 3 /uL 10/04/2018 10:20 AM T [facility] Lymphocyte Absolute 0.8 0.8 - 2.9 10? 3 /uL 10/04/2018 10:20 AM T [facility] Monocytes Absolute 0.71(H) 0.14 - 0.66 10? 3 /uL 10/04/2018 10:20 AM T [facility] Eosinophils Absolute 0.10 0.00 - 0.45 10? 3 /uL 10/04/2018 10:20 AM [facility] Basophils Absolute 0.03 0.00 - 0.06 10? 3 /uL 10/04/2018 10:20 AM [facility] Immature Granulocytes % 0.4 0.0 - 1.0 % 10/04/2018 10:20 AM T [facility] Blood BLOOD SPECIMEN / Unknown Lab Venipuncture / Unknown 10/04/2018 9:27 AM CDT 10/04/2018 9:48 AM CDT Emmanuelle Adams [employer] LO[employer]BABY [employer] WORKER LAB - HEMATOLOGY ORDERABLES [address] [phone] * (ABNORMAL) PHOSPHORUS BLOOD (10/04/2018 9:27 AM CDT) Phosphorus 2.2(L) 2.3 - 4.7 mg/dL 10/04/2018 10:40 AM CDT [facility] Blood BLOOD SPECIMEN / Unknown Lab Venipuncture / Unknown 10/04/2018 9:27 AM CDT 10/04/2018 9:48 AM CDT Emmanuelle Adams HOIST [employer] LO[employer]ER[employer]BABY [employer] WORKER LAB - CHEMISTRY ORDERABLES [address] [phone] * (ABNORMAL) MAGNESIUM BLOOD (10/04/2018 9:27 AM CDT) Magnesium 1.2(L) 1.6 - 2.6 mg/dL 10/04/2018 10:43 AM [facility] Blood BLOOD SPECIMEN / Unknown Lab Venipuncture / Unknown 10/04/2018 9:27 AM CDT 10/04/2018 9:48 AM CDT Emmanuelle Rocio Adams HOIST [employer] LO[employer]ER[employer]BABY [employer] WORKER LAB - CHEMISTRY ORDERABLES [facility] [address] [id number], [facility] [phone] * (ABNORMAL) BASIC METABOLIC PANEL (CALCIUM TOTAL) (10/04/2018 9:27 AM CDT) BUN 5(L) 7 - 26 mg/dL 10/04/2018 10:59 AM [facility] Creatinine 0.6 0.6 - 1.2 mg/dL 10/04/2018 10:59 AM [facility] Sodium 131(L) 136 - 145 mmol/L 10/04/2018 10:59 AM [facility] Comment:Confirmed by repeat analysis. Potassium 3.7 3.5 - 4.5 mmol/L 10/04/2018 10:59 AM [facility] Chloride 97(L) 98 - 107 mmol/L 10/04/2018 10:59 AM [facility] Comment:Confirmed by repeat analysis. CO2 25 22 - 29 mmol/L 10/04/2018 10:59 AM [facility] Glucose 120(H) 70 - 115 mg/dL 10/04/2018 10:59 AM [facility] Calcium 8.5 8.4 - 10.2 mg/dL 10/04/2018 10:59 AM [facility] Anion Gap 13 8 - 18 10/04/2018 10:59 AM [facility] BUN/Creatinine Ratio 8 7 - 23 10/04/2018 10:59 AM [facility] Osmolality Calculated 270 270 - 300 mOsm/kg 10/04/2018 10:59 AM [facility] eGFR >60 >60 mL/min/1.7 3 m2 10/04/2018 10:59 AM CDT [facility] Blood BLOOD SPECIMEN / Unknown Lab Venipuncture / Unknown 10/04/2018 9:27 AM CDT 10/04/2018 9:48 AM CDT Emmanuelle ANDERSONBABY FORMULA WORKER LAB - CHEMISTRY ORDERABLES Performing Organization Address City/[facility]/ZIP Co de Phone Number [address] [phone] * EKG 12-LEAD (10/03/2018 2:57 PM CDT) Ventricular Rate 88 BPM [facility] Atrial Rate 88 BPM [facility] P-R Interval 138 ms [facility] QRS Duration ms 86 ms [facility] Q-T Interval ms 368 ms [facility] QTC Calculation (Bezet) 445 ms [facility] Calculated P [place] 28 degrees [facility] Calculated R [place] 26 degrees [facility] Calculated T [place] 18 degrees [facility] Interpretation EKG NORMAL SINUS RHYTHM NORMAL ECG NO PREVIOUS ECGS AVAILABLE Confirmed by Sara HERNANDEZ, KEIRA ([id number]), web content editor Carmela Galeano ([id number]) on 10/15/2018 9:30:33 PM [facility] 10/03/2018 2:57 PM CDT 10/15/2018 9:30 PM CDT Miguel Roach MD ECG ORDERABLES Performing Organization Address [facility]/ZIP Co de Phone Number [facility] * (ABNORMAL) RBC MORPHOLOGY (10/03/2018 3:12 AM CDT) Platelet Estimate Decreased (A) Adequate 10/03/2018 4:41 AM CDT [facility] Anisocytosis 1+(A) None 10/03/2018 4:41 AM CDT [facility] Microcytes 1+(A) None 10/03/2018 4:41 AM CDT [facility] Hypochromia 1+(A) None 10/03/2018 4:41 AM [facility] Polychromasia Occasiona l(A) None 10/03/2018 4:41 AM [facility] Target Cells Occasiona l(A) None 10/03/2018 4:41 AM [facility] Blood BLOOD SPECIMEN / Unknown Lab Venipuncture / Unknown 10/03/2018 3:12 AM CDT 10/03/2018 3:46 AM T Paul De Paz MD LAB - HEMATOLOGY ORD ERABLES [facility] [address] [place] [address] * (ABNORMAL) BASIC METABOLIC PANEL (CALCIUM TOTAL) (10/03/2018 3:12 AM T) BUN 3(L) 7 - 26 mg/dL 10/03/2018 4:12 AM [facility] Creatinine 0.5(L) 0.6 - 1.2 mg/dL 10/03/2018 4:12 AM [facility] Sodium 141 136 - 145 mmol/L 10/03/2018 4:12 AM [facility] Potassium 3.3(L) 3.5 - 4.5 mmol/L 10/03/2018 4:12 AM [facility] Chloride 108(H) 98 - 107 mmol/L 10/03/2018 4:12 AM [facility] CO2 24 22 - 29 mmol/L 10/03/2018 4:12 AM [facility] Glucose 100 70 - 115 mg/dL 10/03/2018 4:12 AM [facility] Calcium 7.8(L) 8.4 - 10.2 mg/dL 10/03/2018 4:12 AM [facility] Anion Gap 12 8 - 18 10/03/2018 4:12 AM [facility] BUN/Creatinine Ratio 6(L) 7 - 23 10/03/2018 4:12 AM [facility] Osmolality Calculated 289 270 - 300 mOsm/kg 10/03/2018 4:12 AM [facility] eGFR >60 >60 mL/min/1.7 3 m2 10/03/2018 4:12 AM [facility] Blood BLOOD SPECIMEN / Unknown Lab Venipuncture / Unknown 10/03/2018 3:12 AM CDT 10/03/2018 3:46 AM CDT Paul De Paz MD LAB - CHEMISTRY MIGUEL GODL [facility] [address] [phone] * (ABNORMAL) CBC W AUTO DIFFERENTIAL (10/03/2018 3:12 AM CDT) WBC 4.2 3.5 - 10.5 10? 3 /uL 10/03/2018 4:09 AM [facility] RBC 3.37(L) 4.30 - 5.70 10? 6 /uL 10/03/2018 4:09 AM [facility] Hemoglobin 8.8(L) 13.5 - 17.5 g/dL 10/03/2018 4:09 AM [facility] Hematocrit 28.0(L) 39.0 - 50.0 % 10/03/2018 4:09 AM [facility] MCV 83.1 81.0 - 97.0 fL 10/03/2018 4:09 AM [facility] MCH 26.1(L) 28.0 - 34.0 pg 10/03/2018 4:09 AM [facility] MCHC 31.4(L) 32.0 - 36.0 g/dL 10/03/2018 4:09 AM [facility] Platelet Count 52(L) 150 - 400 10? 3 /uL 10/03/2018 4:09 AM [facility] RDW-SD 68.1(H) 36.0 - 50.0 fL 10/03/2018 4:09 AM [facility] RDW-CV 22.5(H) 11.2 - 14.8 % 10/03/2018 4:09 AM [facility] MPV 10.6 9.3 - 12.8 fL 10/03/2018 4:09 AM [facility] nRBC Absolute 0.00 0 10? 3 /uL 10/03/2018 4:09 AM [facility] nRBC Auto 0.0 0 /100 WBC 10/03/2018 4:09 AM [facility] Neutrophils % 53.1 35.0 - 70.0 % 10/03/2018 4:09 AM [facility] Lymphocytes % 26.0 19.7 - 55.1 % 10/03/2018 4:09 AM [facility] Monocytes % 18.4(H) 3.0 - 15.0 % 10/03/2018 4:09 AM [facility] Eosinophils % 1.4 0.0 - 6.0 % 10/03/2018 4:09 AM [facility] Basophil % 0.9 0.0 - 1.5 % 10/03/2018 4:09 AM [facility] Neutrophils Absolute 2.2 1.6 - 7.0 10? 3 /uL 10/03/2018 4:09 AM [facility] Lymphocyte Absolute 1.1 0.8 - 2.9 10? 3 /uL 10/03/2018 4:09 AM [facility] Monocytes Absolute 0.78(H) 0.14 - 0.66 10? 3 /uL 10/03/2018 4:09 AM [facility] Eosinophils Absolute 0.06 0.00 - 0.45 10? 3 /uL 10/03/2018 4:09 AM [facility] Basophils Absolute 0.04 0.00 - 0.06 10? 3 /uL 10/03/2018 4:09 AM [facility] Immature Granulocytes % 0.2 0.0 - 1.0 % 10/03/2018 4:09 AM [facility] Blood BLOOD SPECIMEN / Unknown Lab Venipuncture / Unknown 10/03/2018 3:12 AM CDT 10/03/2018 3:46 AM CDT Paul De Paz MD LAB - HEMATOLOGY ORD ERABLES [facility] [address] [phone] * (ABNORMAL) CBC W/O DIFFERENTIAL (10/03/2018 12:00 AM CDT) WBC 4.4 3.5 - 10.5 10? 3 /uL 10/03/2018 12:11 AM [facility] RBC 3.32(L) 4.30 - 5.70 10? 6 /uL 10/03/2018 12:11 AM [facility] Hemoglobin 8.8(L) 13.5 - 17.5 g/dL 10/03/2018 12:11 AM [facility] Hematocrit 27.6(L) 39.0 - 50.0 % 10/03/2018 12:11 AM [facility] MCV 83.1 81.0 - 97.0 fL 10/03/2018 12:11 AM [facility] MCH 26.5(L) 28.0 - 34.0 pg 10/03/2018 12:11 AM [facility] MCHC 31.9(L) 32.0 - 36.0 g/dL 10/03/2018 12:11 AM [facility] Platelet Count 50(L) 150 - 400 10? 3 /uL 10/03/2018 12:11 AM [facility] RDW-SD 66.8(H) 36.0 - 50.0 fL 10/03/2018 12:11 AM [facility] RDW-CV 22.5(H) 11.2 - 14.8 % 10/03/2018 12:11 AM [facility] MPV 9.6 9.3 - 12.8 fL 10/03/2018 12:11 AM [facility] nRBC Absolute 0.00 0 10? 3 /uL 10/03/2018 12:11 AM [facility] nRBC Auto 0.0 0 /100 WBC 10/03/2018 12:11 AM [facility] Blood BLOOD SPECIMEN / Unknown Lab Venipuncture / Unknown 10/03/2018 12:00 AM CDT 10/03/2018 12:04 AM [facility] Lupillo Hale MD LAB - HEMATOLOGY ORD ERABLES [facility] [address] [place] [address] * (ABNORMAL) HEPATIC FUNCTION PANEL (10/02/2018 11:45 PM CDT) Protein Total 6.2 6.0 - 8.3 g/dL 019 12:18 AM T [facility] Albumin 2.5(L) 3.4 - 5.0 g/dL 10/03/2018 12:18 AM CDT [facility] Bilirubin Total 2.2(H) 0.2 - 1.2 mg/dL 09/16 12:18 AM T [facility] Bilirubin Conjugated 1.2(H) 0.0 - 0.5 mg/dL 10/03/2018 12:18 AM [facility] Bilirubin Unconjugated 1.0 Unconjugated Bilirubin is a calculated value: Reference ranges have not been established. mg/dL 10/03/2018 12:18 AM [facility] Alkaline Phosphatase 150 40 - 150 Units/L 10/03/2018 12:18 AM [facility] ALT 48 0 - 55 Units/L 10/03/2018 12:18 AM [facility] AST 210(H) 5 - 34 Units/L 10/03/2018 12:18 AM [facility] Albumin/Globulin Ratio 0.7(L) 1.1 - 2.3 10/03/2018 12:18 AM [facility] Blood BLOOD SPECIMEN / Unknown Lab Venipuncture / Unknown 10/02/2018 11:45 PM CDT 10/02/2018 11:55 PM CDT Lupillo Hale MD LAB - CHEMISTRY [facility] Organization Address City/State/ZIP Co de Phone Number [facility] [address] [place] [address] * XR WRIST LEFT 2VW (10/02/2018 7:09 PM CDT) Anatomical Region Laterality Modality Wrist / Hand Radiographic Lynette ging 10/02/2018 7:27 PM CDT Impressions 10/04/2018 4:32 PM CDT IMPRESSION: Status post splint placement for intra-articular distal radius fracture. Improved alignment. Report dictated by Efren Bauman M.D. (cath lab radiology technician). Dr. PRANAY Londono MD have personally [...] alignment. Report dictated by Efren Bauman M.D. (cath lab radiology technician). I, Dr. PRANAY GUAMAN MD have personally reviewed and interpreted this examination/study. This report was electronically signed by PRANAY GUAMAN MD on10/04/2018 4:32 PM . Lupillo Baxter MD DIAGNOSTIC I MAGING ORDERABLES * (ABNORMAL) DRUG SCREEN TOX URINE PANEL (10/02/2018 6:33 PM CDT) [facility] Amphetamines Screen Urine Negative Negative : < 1000 ng/mL 10/02/2018 7:02 PM CDT [facility] Barbiturates Screen Urine Negative Negative : < 200 ng/mL 10/02/2018 7:02 PM [facility] Benzodiazepine Screen Urine Positive(A) Negative : < 200 ng/mL 10/02/2018 7:02 PM [facility] Comment: Positive urine benzodiazepine screening results should be confirmed by another generally accepted non-immunological method such as gas chromatography or mass spectrometry. ? Opiates Urine Negative Negative : < 300 ng/mL 10/02/2018 7:02 PM [facility] Cocaine Metabolites Urine Negative Negative : < 300 ng/mL 10/02/2018 7:02 PM CDT [facility] Phencyclidine Screen Urine Negative Negative : < 25 ng/ml 10/02/2018 7:02 PM T [facility] Cannabinoids Screen Urine Negative Negative : <50 ng/mL 10/02/2018 7:02 PM CDT [facility] Methadone Screen Urine Negative Negative : < 300 ng/mL 10/02/2018 7:02 PM T [facility] Urine URINE / Unknown Collection / Unknown 10/02/2018 6:33 PM CDT 10/02/2018 6:43 PM CDT Narrative [facility] - 10/02/2018 7:02 PM CDT The Urine Toxicology Screening Panel does not screen for Propoxyphene, Meprobamate, Carisoprodol, Trazodone, [id number] medications and/or volatiles (Acetone, Isopropanol, Methanol or Ethylene Glycol). Ethanol, Salicylate, Acetaminophen, Tricyclic Antidepressants and several therapeutic drugs may be individually assayed in serum or plasma specimen. Toxicology testing by the [facility] is an aid to medical diagnosis and treatment of patients. No documented chain of custody was maintained. Results are intended to be used for clinical purposes only. ? Alfred Thakkar DO LAB - URINE CHEMISTR Y ORDERABLES [facility] [address] [place] [address], [facility] [phone] * XR WRIST LEFT 3VW OR MORE (10/02/2018 6:15 PM CDT) Anatomical Region Laterality Modality Wrist / Hand Radiographic Lynette ging 10/02/2018 6:15 PM CDT Impressions 10/04/2018 4:31 PM CDT IMPRESSION: Status post splint placement for intra-articular distal radius fracture. Report dictated by Efren Bauman M.D. (cath lab radiology technician). Dr. PRANAY Londono MD have personally [...] fracture. Report dictated by Efren Bauman M.D. (cath lab radiology technician). Dr. PRANAY Londono MD have personally [...] fracture in the hand. Report dictated by Efern Bauman M.D. (cath lab radiology technician). Dr. SHAAN Londono have personally reviewed [...] hand. Report dictated by Efren Bauman M.D. (cath lab radiology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 mg, Oral, 3 TIMES DAILY PRN, Muscle Spasms, Starting on Sun10/06/18 at 0605, Until Sun10/10/18 at 1040 $ Given 10/09/2018 8:30 PM CDT 800 mg midazolam (VERSED) 1 mg/mL injection ADS Med 1 dose, Starting on Sun10/10/18 at 0920, Until Sun10/10/18 at 0931, Linh Lundberg: cabinet override midazolam (VERSED) 100 mg in 0.9% NaCl 100 mL infusion 0-15 mg/hr (0-15 mL/hr), Intravenous, CONTINUOUS, Starting on Sun10/06/18 at 0930, Until Sun10/08/18 at 1246, THIS PATIENT IS AT RISK FOR FALLS, Titration Parameters: Custom Parameters, Indication: Sedation, Initiate infusion at: 1 mg/hr, Titrate infusion by: 1 mg/hr, Titrate every: 5 minutes, To maintain: RASS score of 0 to -1 = Alert and Calm to Drowsy, Notify physician if: Unachievable RASS goal despite max dose Rate Change 10/08/2018 7:46 AM CDT 2 mg/hr 2 mL/hr Rate Change 10/08/2018 6:22 AM CDT 4 mg/hr 4 mL/hr Rate Change 10/08/2018 5:17 AM CDT 6 mg/hr 6 mL/hr midazolam (VERSED) bolus from infusion bag 2 mg 2 mg, Intravenous, BOLUS FROM BAG PRN, to maintain RASS goal, Starting on Sun10/06/18 at 0856, Until Sun10/09/18 at 0742, Bolus from bag every 5 minutes to maintain RASS goal. Bolus From Bag 10/06/2018 11:25 PM CDT 2 mg Bolus From Bag 10/06/2018 9:37 PM CDT 2 mg Bolus From Bag 10/06/2018 3:06 PM CDT 2 mg midazolam (VERSED) injection 2 mg 2 mg, Intravenous, ONCE, 1 dose, On Sun10/02/18 at 1730 $ Given 10/02/2018 5:18 PM CDT 2 mg midazolam (VERSED) injection 2 mg 2 mg, Intravenous, ONCE, 1 dose, On Mendy 10/10/18 at 0930 $ Given 10/10/2018 10:11 AM CDT 2 mg midazolam (VERSED) injection 2 mg 2 mg, Intravenous, ONCE, 1 dose, On Sun10/10/18 at 1015 $ Given 10/10/2018 9:31 AM CDT 2 mg morphine injection 2 mg 2 mg, Intravenous, EVERY 4 HOURS PRN, Moderate Pain, Severe Pain, Starting on Sun10/12/18 at 1314, Until Sun10/16/18 at 1200 $ Given 10/16/2018 6:03 AM CDT 2 mg $ Given 10/16/2018 12:59 AM CDT 2 mg $ Given 10/15/2018 8:50 PM CDT 2 mg multivitamin daily tablet 1 tablet 1 [...] AM CDT 14 mg Le ft Arm ondansetron (disintegrating) (ZOFRAN ODT) tablet 4 mg 4 mg, Oral, EVERY 6 HOURS PRN, Nausea/Vomiting, Starting on Sun10/02/18 at 1742, Until Sun10/15/18 at 1437, Allow tablet to dissolve on the tongue $ Given 10/03/2018 12:03 PM CDT 4 mg ondansetron (ZOFRAN) injection 4 mg 4 mg, Intravenous, EVERY 6 HOURS PRN, Nausea/Vomiting, Starting on Sun10/02/18 at 1742, Until Sun10/16/18 at 0753, Administer IV if patient is NPO, actively vomiting, or unable to swallow. $ Given 10/03/2018 2:20 AM CDT 4 mg oxyCODONE (immediate release) (ROXICODONE) tablet 10 mg 10 mg, Oral, EVERY 4 HOURS PRN, Severe Pain, Starting on Sun10/03/18 at 0159, Until Mendy 10/17/18 at 1758 $ Given 10/17/2018 4:45 PM CDT 10 mg $ Given 10/17/2018 12:30 PM CDT 10 mg $ Given 10/17/2018 8:07 AM CDT 10 mg oxyCODONE (immediate release) (ROXICODONE) tablet 5 mg 5 mg, Oral, EVERY 4 HOURS PRN, Moderate Pain, Starting on Sun10/03/18 at 0159, Until Mendy 10/17/18 at 1758 $ Given 10/16/2018 10:28 AM CDT 5 mg $ Given 10/08/2018 11:34 AM CDT 5 mg oxymetazoline (AFRIN) 0.05 % nasal spray 1 spray 1 spray, Each Nostril, 2 TIMES DAILY, 730 doses, First dose on Sun10/07/18 at 1115, Last dose on Sun10/06/19 at 2100, . WASTE DISPOSAL INSTRUCTIONS: Black Bin Disposal required. $ Given 10/17/2018 8:18 AM CDT 1 spray $ Given 10/16/2018 9:00 PM CDT 1 spray $ Given 10/16/2018 8:44 AM CDT 1 spray pantoprazole (PROTONIX) injection 40 mg 40 mg, Intravenous, DAILY, 365 doses, First dose on Sun10/02/18 at 1815, Last dose on Sun10/01/19 at 0900, For every 40 mg of pantoprazole mix with 10 mL Normal Saline (final concentration = 4 mg/mL). Inject SLOWLY over 2 min. $ Given 10/04/2018 8:46 AM CDT 40 mg $ Given 10/03/2018 8:46 AM CDT 40 mg $ Given 10/02/2018 6:55 PM CDT 40 mg polyethylene glycol 3350 (MIRALAX) packet 17 g 17 g, Oral, DAILY, First dose on Sun10/04/18 at 0900, Until Discontinued, Mix in 8 ounces of water, juice, soda, coffee or tea prior to administration $ Given 10/17/2018 8:17 AM CDT 17 g $ Given 10/16/2018 10:26 AM CDT 17 g $ Given 10/11/2018 8:27 AM CDT 17 g potassium - sodium phosphates (PHOS-NAK) powder 2 packet 2 packet, Oral, ONCE, 1 dose, On Mendy 10/17/18 at 0800, Mix contents of packet in 6 to 8 ounces of water and drink, may taste better if cold Contains Phos 8 mmol, K+ 7 mEq, Na 7 mEq per packet $ Given 10/17/2018 8:21 AM CDT 2 packets potassium chloride 20 mEq in 100 mL SW bolus 20 mEq, at 50 mL/hr, Administer over 2 Hours, Intravenous, ONCE, 1 dose, On Sun10/06/18 at 0215 $ New Bag/Syringe 10/06/2018 2:20 AM CDT 20 mEq 50 mL/hr potassium chloride 20 mEq in 100 mL SW bolus 20 mEq, at 50 mL/hr, Administer over 2 Hours, Intravenous, ONCE, 1 dose, On Sun10/07/18 at 0315 $ New Bag/Syringe 10/07/2018 4:57 AM CDT 20 mEq 50 mL/hr potassium chloride 20 mEq in 100 mL SW bolus 20 mEq, at 50 mL/hr, Administer over 2 Hours, Intravenous, ONCE, 1 dose, On Sun10/14/18 at 1030 Current Rate 10/14/2018 10:52 AM CDT 50 mL/hr $ New Bag/Syringe 10/14/2018 10:52 AM CDT 20 mEq 50 mL /hr potassium chloride 20 mEq in 100 mL SW bolus 20 mEq, at 50 mL/hr, Administer over 2 Hours, Intravenous, ONCE, 1 dose, On Sun10/15/18 at 0700 $ New Bag/Syringe 10/15/2018 3:02 PM CDT 20 mEq 50 mL/hr potassium chloride 40 mEq in 0.9% NaCl 270 mL bolus 40 mEq, at 67.5 mL/hr, Administer over 4 Hours, Intravenous, ONCE, 1 dose, On Mendy 10/10/18 at 0230 $ New Bag/Syringe 10/10/2018 2:16 AM CDT 40 mEq 67.5 mL/hr potassium chloride 40 mEq in 0.9% NaCl 270 mL bolus 40 mEq, at 67.5 mL/hr, Administer over 4 Hours, Intravenous, ONCE, 1 dose, On Sun10/11/18 at 0200 $ New Bag/Syringe 10/11/2018 2:36 AM CDT 40 mEq 67.5 mL/hr potassium chloride 40 mEq in 0.9% NaCl 270 mL bolus 40 mEq, at 67.5 mL/hr, Administer over 4 Hours, Intravenous, ONCE, 1 dose, On Sun10/12/18 at 0200 $ New Bag/Syringe 10/12/2018 2:08 AM CDT 40 mEq 67.5 mL/hr potassium chloride 40 mEq in 0.9% NaCl 270 mL bolus 40 mEq, at 67.5 mL/hr, Administer over 4 Hours, Intravenous, ONCE, 1 dose, On Sun10/13/18 at 0245 $ New Bag/Syringe 10/13/2018 3:17 AM CDT 40 mEq 67.5 mL/hr potassium chloride 40 mEq in 0.9% NaCl 270 mL bolus 40 mEq, at 67.5 mL/hr, Administer over 4 Hours, Intravenous, ONCE, 1 dose, On Sun10/14/18 at 0700 $ New Bag/Syringe 10/14/2018 6:49 AM CDT 40 mEq 67.5 mL/hr potassium chloride ER (KLOR-CON M) tablet 20 mEq 20 mEq, Oral, ONCE, 1 dose, On Sun10/03/18 at 1200, Do not crush or chew. $ Given 10/03/2018 11:52 AM CDT 20 mEq potassium chloride ER (KLOR-CON M) tablet 40 mEq 40 mEq, Oral, ONCE, 1 dose, On Sun10/03/18 at 0745, Do not crush or chew. $ Given 10/03/2018 9:01 AM CDT 40 mEq potassium chloride ER (KLOR-CON M) tablet 40 mEq 40 mEq, Oral, ONCE, 1 dose, On Sun10/04/18 at 1145, Do not crush or chew. $ Given 10/04/2018 11:50 AM CDT 40 mEq potassium phosphate 30 mmol in dextrose 5 % 260 mL bolus 30 mmol, at 43.33 mL/hr, Administer over 6 Hours, Intravenous, ONCE, 1 dose, On Sun10/09/18 at 0200, 3 mmol phosphate = 4.4 mEq potassium $ New Bag/Syringe 10/09/2018 2:10 AM CDT 30 mmol 43.33 mL/hr propofol (DIPRIVAN) 1000 mg in 100 mL infusion ADS Med 1 dose, Starting on Sun10/06/18 at 0821, Until Sun10/06/18 at 0830, Edmundo Triplett: cabinet override Vial and Tubing should be changed and/or discarded every 12 hours. propofol (DIPRIVAN) infusion 0-100 mcg/kg/min ? 86.2 kg (0-51.72 mL/hr), Intravenous, CONTINUOUS, Starting on Sun10/06/18 at 0900, Until Sun10/06/18 at 0856, Vial and Tubing should be changed and/or discarded every 12 hours., Titration Parameters: Standard Parameters, Indication: Sedation, Initiate infusion at: 5 mcg/kg/min, Titrate infusion by: 5 mcg/kg/min, Titrate every: 2 minutes, To maintain a: RASS score of 0 to -1 = Alert and Calm to Drowsy, Notify physician if: Unachievable RASS goal despite max dose Rate Change 10/06/2018 11:33 AM CDT 10 mcg/kg/min 5.1 mL/hr Rate Change 10/06/2018 11:24 AM CDT 15 mcg/kg/min 7.65 mL/ hr Current Rate 10/06/2018 11:19 AM CDT 20 mcg/kg/min 10.2 mL /hr senna-docusate (SENOKOT-S) tablet 1 tablet 1 tablet, Oral, DAILY, 365 doses, First dose on Sun10/03/18 at 0900, Last dose on Sun10/02/19 at 0900 $ Given 10/17/2018 8:19 AM CDT 1 tablet $ Given 10/16/2018 10:26 AM CDT 1 tablet $ Given 10/11/2018 8:25 AM CDT 1 tablet succinylcholine (ANECTINE) injection 100 mg 100 mg, Intravenous, ONCE, 1 dose, On Sun10/06/18 at 0915 $ Given 10/06/2018 8:13 AM CDT 100 mg succinylcholine (ANECTINE) injection 100 mg 100 mg, Intravenous, ONCE, 1 dose, On Sun10/07/18 at 0630 $ Given 10/07/2018 4:08 AM CDT 100 mg thiamine (VITAMIN B-1) 500 mg in 0.9% NaCl 50 mL IVPB 500 mg, at 100 mL/hr, Intravenous, DAILY, 365 doses, First dose on Sun10/02/18 at 1815, Last dose on Sun10/01/19 at 0900, Protect from light $ New Bag/Syringe 10/02/2018 7:10 PM CDT 500 mg 100 mL/hr thiamine (VITAMIN B-1) tablet 100 mg 100 mg, Oral, DAILY, 374 doses, First dose on Sun10/03/18 at 0900, Last dose on Sun10/11/19 at 0900 $ Given 10/17/2018 8:21 AM CDT 100 mg $ Given 10/16/2018 10:26 AM CDT 100 mg $ Given 10/11/2018 8:25 AM CDT 100 mg vancomycin (VANCOCIN) 1,500 mg in 0.9% NaCl 530 mL IVPB 1,500 mg, at 353.33 mL/hr, Intravenous, EVERY 12 HOURS, 14 doses, First dose on Sun10/08/18 at 2345, Last dose on Sun10/15/18 at 1145, Refrigerate, Indication for anti-infective therapy: Documented infection, Site of anti-infective therapy: Lower Respiratory $ New Bag/Syringe 10/08/2018 11:36 PM CDT 1,500 mg 353.33 mL/hr vancomycin (VANCOCIN) 2,000 mg in 0.9% NaCl 540 mL IVPB 2,000 mg, at 270 mL/hr, Intravenous, ONCE, 1 dose, On Sun10/08/18 at 1145, Refrigerate, Indication for anti-infective therapy: Documented infection, Site of anti-infective therapy: Lower Respiratory Current Rate 10/08/2018 2:00 PM CDT 270 mL/hr Current Rate 10/08/2018 12:54 PM CDT 270 mL/hr $ New Bag/Syringe 10/08/2018 12:53 PM CDT 2,000 mg 270 m L/hr documented in this encounter Active and Recently [...] Patient sleeping)2051 ($ Given - Provider: Robyn Mendiola RN) 0603 ($ Given - Provider: Robyn Mendiola [...] TIMES DAILY, 730 doses, First dose on 10/06/18 at 0930, Last dose on 10/05/19 at 2100, 15 mL oral rinse. Swish for 30 seconds and spit. Do not rinse, brush, or eat immediately after use. . WASTE DISPOSAL INSTRUCTIONS: Black Bin Disposal required. 09 (Not Administered - Provider: Bibi Romero RN - Reason: See Comments - Comment: patient in OR)2050 ($ Given - Provider: Robyn Mendiola RN) 0844 ($ Given - Provider: Abbi Loera RN)2100 ($ Given - Provider: Tete Vines RN) 0822 ($ Given - Provider: Abbi Loera RN) enoxaparin (LOVENOX) injection 30 mg 30 mg, Subcutaneous, EVERY 12 HOURS, First dose on 10/05/18 at 0900, Until Discontinued, (for prefilled syringes) do not expel air bubble from the syringe prior to the injection Remind Patient to not rub injection site. Could cause hematoma. 744 (Not Administered - Provider: Laura Roque - Reason: See Comments - Comment: Per order pt going to OR today)2050 ($ Given - Provider: Robyn Mendiola RN) 08 ($ Given - Provider: Abbi Loera RN)2099 ($ Given - Provider: Tete Vines, REJI) 08 ($ Given - Provider: Abbi Loera RN) famotidine (PEPCID) injection 20 mg (CANCELED) 20 mg, Intravenous, 2 TIMES DAILY, 730 doses, First dose on Sun10/08/18 at 1000, Last dose on Sun10/07/19 at 2100, Dilute 2 mL of injection with 0.9% NaCl or D5W solution to a volume of 5 to 10 ml. Push over a period of at least 2 minutes. 943 (Not Administered - Provider: Bibi Romero RN - Reason: See Comments - Comment: patient in OR)2050 ($ Given - Provider: Robyn Mendiola RN) 08 ($ Given - Provider: Abbi Loera RN)2099 ($ Given - Provider: Tete Vines, REJI) [...] Katz RN)2100 ($ Given - Provider: Tete Vines, RN) 0818 ($ Given - Provider: Abbi [...] Loera RN)0854 (Current Rate - Provider: Nilson Katz RN)0935 (Paused - Provider: Nilson Katz RN)1006 (Restarted - Provider: Nilson Katz RN)1253 (Stopped - Provider: Nilson Katz, REJI)1254 (Stopped - Provider: Abbi Loera RN) melatonin tablet 6 mg 6 mg, Oral, AT BEDTIME, 365 doses, First dose on Sun10/14/18 at 2100, Last dose on Sun10/13/19 at 2100 2040 (Not Administered - Provider: Robyn Mendiola RN - Reason: NPO) 2100 ($ Given - Provider: Tete Vines, REJI) multivitamin daily tablet 1 tablet 1 tablet, [...] 2 packet, Oral, ONCE, 1 dose, On Mendy 10/17/18 at 0800, Mix contents of packet in [...] patient in OR)1915 (Stopped - Provider: Bibi Romero, REJI) senna-docusate (SENOKOT-S) tablet 1 tablet 1 tablet, Oral, DAILY, 365 doses, First dose on Mendy 10/03/18 at 0900, Last dose on Mendy 10/02/19 at 0900 0947 (Not Administered - Provider: Bibi Romero RN - Reason: NPO) 1026 ($ Given - Provider: Abbi Loera RN) 0819 ($ Given - Provider: Abbi Loera, REJI) thiamine (VITAMIN B-1) tablet 100 mg 100 mg, Oral, DAILY, 374 doses, First dose on Mendy 10/03/18 at 0900, Last dose on 10/11/19 at 0900 0947 (Not Administered - Provider: Bibi Romero RN - Reason: NPO) 1026 ($ Given - Provider: Abbi Loera RN) 0821 ($ Given - Provider: Abbi Loera, RN) Continuous Medication Order 10/15/2018 10/16/2018 10/17/2018 dextrose 5% and 0.9% NaCl with KCL 20 mEq infusion (CANCELED) at 100 mL/hr, Intravenous, CONTINUOUS, Starting on Sun10/14/18 at 0945, Until Sun10/16/18 at 0757 0137 (Current Rate - Provider: Lisseth Jack RN)0443 (Paused - Provider: Lisseth Jack, REJI)0449 (Restarted - Provider: Lisseth Jack, REJI)0645 (Current Rate - Provider: Lisseth Jack RN)0925 (Stopped - Provider: Bibi Romero RN - Comment: OR)1455 (Restarted - Provider: Laura Roque)1543 ($ New Bag/Syringe - Provider: Bibi Romero RN) dextrose 5% and 0.9% NaCl with KCL 20 mEq infusion (CANCELED) at 100 mL/hr, Intravenous, CONTINUOUS, Starting on 10/16/18 at 0830, Until Sun10/16/18 at 1154 0849 [...] EVERY 6 HOURS PRN, Anxiety, Starting on 10/14/18 at 2000, Until Tu10/15/18 at 0628 0457 ($ Given - Provider: Montrell Morris RN) morphine injection 2 mg (CANCELED) 2 mg, Intravenous, EVERY 4 HOURS PRN, Moderate Pain, Severe Pain, Starting on 10/12/18 at 1314, Until Sun10/16/18 at 1200 2050 ($ Given - Provider: Robyn Mendiola RN) 0059 ($ Given - Provider: Robyn Mendiola RN)0603 ($ Given - Provider: Robyn Mendiola, REJI) oxyCODONE (immediate release) (ROXICODONE) tablet 10 mg(Linked Group 1) 10 mg, Oral, EVERY 4 HOURS PRN, Severe Pain, Starting on Mendy 10/03/18 at 0159, Until Mendy 10/17/18 at 1758 1028 (See Alternative - Provider: Abbi Loera RN)1558 ($ Given - Provider: Nilson Katz RN) 0807 ($ Given - Provider: Abbi Loera RN)1230 ($ Given - Provider: Abbi Loera, RN)1645 ($ Given - Provider: Abbi Loera [...]
--- OUTSIDE RECORDS SUMMARY | 2024-06-27 04:51 | XMS_ITS | Encounter Summary ---
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 [phone] 08/25/2024 1:20 PM CDT Office Visit [facility] [address] [place] [address] Migue Reeder MD [address] [facility] [address] [place] [address] documented as of this encounter Procedures Procedure Name Priority Date/Time Associated Diagnosis Comments ENDOTRACHEAL TUBE NOTE Routine 10/15/2018 11:06 AM CDT Procedure Note - Ashlee Christine Anes Asst - 10/15/2018 11:05 AM CDTThis note is in progress. Endotracheal Tube Placement: Patient Location: OR. Intubation Event Date/Time: 10/15/2018 10:47 AM Procedure: intubation (20313). Procedure Section: Sedation: under general anesthesia. Indications for Airway Management: anesthesia Pretreatment: 100% O2. Induction: standard IV Patient Position: supine Mask Ventilation: easy. Blade Type: Amparo Blade Size: 4 Laryngoscopy View: grade 1 (full cords) Device: endotracheal tube Placement: oral Tube type: cuff - inflated Tube Size (MM): 8 Depth of Insertion (CM): 22 Measured From: lips Cuff Inflated With: air Number of Attempts: 1. Placement Verified By: direct visualization, bilateral breath sounds,chest auscultation and CO2 monitor Tube secured with: adhesive tape. Difficult Airway? No. Procedure Start Time: 10/15/2018 10:47 AM. Staff Section Anesthesia Provider: ASHLEE CHRISTINE, Performed the procedure documented in this encounter Visit Diagnoses Not on filedocumented in this encounter Administered Medications Inactive Administered Medications - up to 3 most recent administrations Medication Order MAR Action Action Date Dose Rate Site ceFAZolin (ANCEF) 2,000 mg in 50 ml IVPB PRN, Starting on Sun10/15/18 at 1055, Until Sun10/15/18 at 1326, Anesthesia Intra-op $ Given 10/15/2018 10:55 AM CDT 2 g ePHEDrine 50-0.9 MG/10ML-% prefilled syringe Intravenous, PRN, Starting on Sun10/15/18 at 1252, Until Sun10/15/18 at 1326, Anesthesia Intra-op $ Given 10/15/2018 12:52 PM CDT 5 mg fentaNYL (PF) (SUBLIMAZE) injection Intravenous, PRN, Starting on Sun10/15/18 at 1043, Until Sun10/15/18 at 1326, Anesthesia Intra-op $ Given 10/15/2018 11:04 AM CDT 50 mcg $ Given 10/15/2018 10:43 AM CDT 100 mcg HYDROmorphone HCl-NaCl 2-0.9 MG/10ML-% SOSY Intravenous, PRN, Starting on Sun10/15/18 at 1230, Until Sun10/15/18 at 1326, Anesthesia Intra-op $ Given 10/15/2018 1:16 PM CDT 0.4 mg $ Given 10/15/2018 1:10 PM CDT 0.4 mg $ Given 10/15/2018 1:05 PM CDT 0.4 mg lactated ringers infusion Intravenous, CONTINUOUS PRN, Starting on Sun10/15/18 at 1037, Until Sun10/15/18 at 1326, Anesthesia Intra-op $ New Bag/Syringe 10/15/2018 11:45 AM CDT $ New Bag/Syringe 10/15/2018 10:37 AM CDT lidocaine hcl (PF) (XYLOCAINE MPF) 2 % injection Infiltration, PRN, Starting on Sun10/15/18 at 1043, Until Sun10/15/18 at 1326, Anesthesia Intra-op $ Given 10/15/2018 10:43 AM CDT 100 mg midazolam (VERSED) injection Intravenous, PRN, Starting on Sun10/15/18 at 1035, Until Sun10/15/18 at 1326, Anesthesia Intra-op $ Given 10/15/2018 10:35 AM CDT 2 mg Ondansetron HCl (ZOFRAN) injection Intravenous, PRN, Nausea/Vomiting, Starting on Sun10/15/18 at 1306, Until Sun10/15/18 at 1326, Anesthesia Intra-op $ Given 10/15/2018 1:06 PM CDT 4 m g phenylephrine 100 mcg/mL injection Intravenous, PRN, Starting on Sun10/15/18 at 1108, Until Sun10/15/18 at 1326, Anesthesia Intra-op $ Given 10/15/2018 1:19 PM CDT 200 mcg $ Given 10/15/2018 12:58 PM CDT 200 mcg $ Given 10/15/2018 12:49 PM CDT 200 mcg propofol (DIPRIVAN) injection Intravenous, PRN, Starting on Sun10/15/18 at 1043, Until Sun10/15/18 at 1326, Anesthesia Intra-op $ Given 10/15/2018 1:16 PM CDT 50 mg $ Given 10/15/2018 10:43 AM CDT 120 mg rocuronium (ZEMURON) injection Intravenous, PRN, Starting on Sun10/15/18 at 1043, Until Sun10/15/18 at 1326, Anesthesia Intra-op $ Given 10/15/2018 12:04 PM CDT 20 mg $ Given 10/15/2018 11:05 AM CDT 20 mg $ Given 10/15/2018 10:55 AM CDT 30 mg sugammadex (BRIDION) injection Intravenous, PRN, Starting on Sun10/15/18 at 1314, Until Sun10/15/18 at 1326, Anesthesia Intra-op $ Given 10/15/2018 1:14 PM CDT 150 mg documented in this encounter
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
--- OUTSIDE RECORDS SUMMARY | 2024-06-27 04:52 | XMS_ITS | Encounter Summary ---
Author Organization [facility] Health Address [address] [place] [address] Care Team Providers Care Landscape Specialist Name Role Phone Toni Ravi MD Primary Care Provider [phone] Jomar Noble MD Unavailable Encounter Details Date Type Department Care Team (Late st Contact Info) Description 10/02/2018 Ophth Exam [facility] [address] [place] [address] Jhon Saravia MD [address] [place] [phone] Social History Tobacco Use Types Packs/Day Years [...] on file documented as of this encounter Plan of Treatment Upcoming Encounters Date Type Department Care Team (Late Contact Info) Description 08/25/2024 1:10 PM CDT Documentation [address] [phone] 08/25/2024 1:20 PM CDT Office Visit [address] [phone] Migue Reeder MD [address] [facility] [address] [place] [address] documented as of this encounter Visit Diagnoses Not on filedocumented in this encounter Additional Health Concerns Infection Onset Date Last Indicated Resolved Time 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
--- OUTSIDE RECORDS SUMMARY | 2024-06-27 04:52 | XMS_ITS | Continuity of Care Document ---
Author Organization [facility] Address [address] [place] [address] [place] [address] Phone Care Team Providers Care Hopper Filler Name Role Phone Jose Abdi MD Unavailable Unavailable Allergies, Adverse Reactions, Alerts Substance Reaction Status Criticality No Known Allergies Active No Inform ation Procedures Procedure Date OFFICE/OUTPATIENT VISIT, [facility] Advance Directives Directive Yes / No Effective Date File Name No Information Encounters Encounter Description Practice Location Reason(s) For Visit Diagnoses Date Provider Providers Copied on Encounter OFFICE/OUTPAT IENT VISIT, [facility], [address], [place], [address], tel:[phone] [facility] liver (chief complaint)B PH1 (chief complaint) Hepatic failure without comaCirrhosis of liverBPH w/o lower urinary tract symptom 1 Jin Garcia. [address], [address], [place], [address]. tel:[phone] Family History Family Member Type Diagnosis Age At Onset No Information Payers Payer name Insurance type Covered republican ID Authoriza tion(s) No Information Social History Type Description Quantity Date Captured Comments Alcohol Use Details No 6 pk of beer daily Caffeine Use Details Unknown Tobacco Use Status Ex-cigarette smoker Smoking Status Former smoker Smoking Tobacco Use Details Cigarette: Age Started: 14, Age Stopped: 49, Years Used 36 Cigarette: 1.5 Packs per day, Pack Year: 52.5 Sex Male Vital Signs Date / Time: Height Weight BMI Pulse Rate Blood Pressure Temperature Respiratory Rate Body Surface Area Head Circumference BMI percentile Pulse Ox Inhaled Ox 4:03 PM 72.00 in 187.60 lbs 25.4 4 kg/m eter (2) 65 /min 125/61 mm[Hg] 98.5 F 18 /min Chief Complaint And Reason For Visit From encounter dated '03/29/2021 12:33'. liver (chief complaint). Description: Pt presents to office for new patient visit Pt states that hewas getting all of his medication from Dr. horn who refused to give him any medication during lastvisit due to insurance issue and he is not sure why. He takes xifaxan and lactulose. He is not surewhy he is on above medication. He told me I am not a doctor, you should talk to dr. Horn and find out . He denies any confusion or headache BPH1 (chief complaint). Description: Pt also takes flomax daily. When asked why he is on flomax, marcos states that I don't know. I am not a doctor. Plan Of Treatment Date Type Action Status No Information History Of Present Illness Encounter Date Complaint History Of Prese nt Illness BPH1 Pt also takes fl omax daily. When asked why he is on flomax, he again states that I don't know. I am not a doctor. liver Pt presents to [facility] for new patient visit Pt states that he was getting all of his medication from Dr. horn who refused to give him any medication during last visit due to insurance issue and he is not sure why. He takes xifaxan and lactulose. He is not sure why he is on above medication. He told me I am not a doctor, you should talk to dr. Horn and find out . He denies any confusion or headache Instructions Date Instruction Additional Infor mation No Information Assessments Type Assessment Date assessment Hepatic failure without coma Mar assessment Cirrhosis of liver assessment BPH w/o lower urinary tract symp denisha Mental Status Date Cognitive Assessment Orientation - [place] ed to time, place, person, situation.
--- OUTSIDE RECORDS SUMMARY | 2024-06-27 04:52 | XMS_ITS | Encounter Summary ---
Author Organization [facility] Address [address] [facility] [place] [address] Care Team Providers Care Floorworker Distributor Name Role Phone Unavailable Primary Care Provider Unavailabl e Encounter Details Date Type Department Care Team (Late st Contact Info) Description 10/14/2018 11:59 PM CDT Anesthesia Event [facility] [address] [place] [address] Christian Adams, DO [address] [place] [address] Anesthesia Record Procedure Summary Procedure Name Responsible Anesthesiologist Anesthesia Start Time Anesthesia Stop Time OPEN REDUCTION INTERNAL FIXATION (ORIF) WRIST/DISTAL RADIUS (Left) Events No events on file. [...] as of this encounter Consult Notes * Laure Page, LIBERAL ARTS TEACHER-SUPERVISOR PROP MAKING - 10/11/2018 1:09 PM CDT ANESTHESIA PREOPERATIVE EVALUATION NOTE Procedure: OPEN REDUCTION INTERNAL FIXATION (ORIF) WRIST/DISTAL RADIUS (Left ) Vitals: Patient Vitals for the past 6 hrs: BP Temp Pulse Resp SpO2 10/11/18 1200 118/63 (!) 100.5 ??F (38.1 ??C) 90 19 94 % 10/11/18 1100 116/58 - 95 24 90 % 10/11/18 1000 107/53 (!) 100.7 ??F (38.2 ??C) 76 14 94 % 10/11/18 0900 104/46 - 75 13 94 % 10/11/18 0800 123/54 - 74 20 93 % ANESTHESIA PRE-EVALUATION NOTE History of Present [...] in ICU) ETT Size: 8 Physical Exam: Physical Exam Additional Comments: -precedex turned off 10/11/2018 and extubated; currently 6L per ME -PIVsx2 -at this time, pt remains confused and unable to participate with physical exam Review of Systems: History of anesthetic complications: No GERD: No Poor Exercise Tolerance: No Recent Chest Pain: No Shortness of Breath: No AICD/Pacemaker: No Renal Disease: No Diagnostic Tests: ECG(s) reviewed: Yes Lab(s) reviewed: Yes. ANESTHESIA PLAN ASA Score: 2 NPO Status: Patient instructed to be NPO after midnight Anesthesia Plan: general Planned Induction: intravenous Planned Postop Destination: ICU and PACU BMI, Height, Weight Tobacco History Estimated body [...] ??? bisacodyl 10 mg 10 mg at 10/10/18 1320 ??? ceFAZolin 2 g 2,000 mg at 10/11/18 0229 ??? chlorhexidine 15 mL at 10/11/18825 ??? dexmedetomidine 0-1.5 mcg/kg/hr Stopped at 10/11/18 1034 ??? enoxaparin 30 mg 30 mg at 10/11/18826 ??? famotidine 20 mg 20 mg at 10/10/182007 ??? ferrous sulfate 325 mg 325 mg at 10/11/18824 ??? folic acid 1 mg 1 mg at 10/11/18826 ??? haloperidol lactate 5 mg 5 mg at 10/11/18 0741 ??? LORazepam 6 mg 6 mg at 10/11/18827 ??? magnesium oxide 400 mg 400 mg at 10/11/18824 ??? multivitamin daily 1 tablet 1 tablet at 10/11/18824 ??? nicotine 14 mg 14 mg at 10/11/1830 ??? ondansetron (disintegrating) 4 mg 4 mg at 10/03/18 1203 Or ??? ondansetron 4 mg 4 mg at 10/03/18 0220 ??? oxyCODONE (immediate release) 5 mg 5 mg at 10/08/18 1134 Or ??? oxyCODONE (immediate release) 10 mg 10 mg at 10/11/18 0511 ??? oxymetazoline 1 spray 1 spray at 10/11/18825 ??? polyethylene glycol 3350 17 g 17 g at 10/11/18826 ??? senna-docusate 1 tablet 1 tablet at 10/11/18824 ??? thiamine 100 mg 100 mg at 10/11/18824 Allergies: No Known Allergies Problem List: Patient Active Problem List Diagnosis Date Noted ??? Alcohol dependence with withdrawal delirium 10/09/2018 Priority: Not Prioritized ??? MSSA (methicillin susceptible Staphylococcus aureus) pneumonia 10/09/2018 Priority: Not Prioritized ??? Bipolar 1 disorder 10/07/2018 Priority: Not Prioritized ??? Alcohol withdrawal 10/04/2018 Priority: Not Prioritized [...] file. Lab Results: Recent Labs Component Name 10/11/18 0004 10/02/18 1610 WBC 5.4 - 4.8 HGB 9.7* - 10.0* HCT 30.8* - 31.1* PLTCOUNT 157 - 68* INR - - 1.3 PTT - - 36.9 - = values in this interval not displayed. Recent Labs Component Name 10/11/18 0004 NA 135* POTASSIUM 3.5 CO2 26 BUN 5* CREATININE 0.4* Recent Labs Component Name 10/11/18 0004 10/02/18 2345 GLU 142* - - CALCIUM 7.9* - - MAGNESIUM 1.4* - - ALT - - 48 AST [...] of ischemic heart disease? no History of NM History of positive stress test Current chest [...] 2 mg/dl? no RCRI correlation with MACE (www.mdcalc.com/hzczjie-mlpklta-khfa-krkfb-jea-qqkontslu-risk, originally validated by [employer]. 1999;100:7813-4531) 0 Points - 0.4% risk 1 Point [...] place interrogation report in chart Information needed (tire rebuilder, mode, indication for CIED, battery life, magnet function, PM dependence): Call PAT director or fibrous wallboard inspector to discuss any patient with a CIED Timing of interrogation should be: Within 1 year for PM and Within 6 months for AICD (Source: 2010 The Heart Rhythm Society (HRS)/[place] Society of Anesthesiologists (ASA) Expert Consensus Statement [...] which blood bank [facility] requires a [...] as a first start case. Please call rug washer to discuss plan and document here: Patients [...] patients with DM, refer to PCP or apartment coordinator for BG >200 - CMP (instead of [...] have been reviewed) documented in this encounter Plan of Treatment Upcoming Encounters Date Type Department Care Team (Late st Contact Info) Description 08/25/2024 1:10 PM CDT Documentation [address] [phone] 08/25/2024 1:20 PM CDT Office Visit [address] [phone] Migue Reeder MD [address] [place] [phone] documented as of this encounter Visit Diagnoses Not on filedocumented in this encounter
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
--- OUTSIDE RECORDS SUMMARY | 2024-06-27 04:52 | XMS_ITS | Encounter Summary ---
Author Organization [facility] Healthcare Address [address] [place] [address] Care Team Providers Care Cream Ripener Name Role Phone Michelle Delcid MD Primary Care Provider [phone] Reason for Visit * Reason Onset Date Comments GI Preprocedure 05/28/2024 Encounter Details Date Type Department Care Team ([facility] Contact Info) Description 05/28/2024 Telephone [facility] Specialty Services [address] [place] [phone] Guillermina Jade, REJI GI Preprocedure Social History Tobacco Use Types Packs/Day Years Used Date Smoking Tobacco: Every Day Cigarettes 0.3 40 Started: 03/1980; Last attempted to quit: 03/2020 Smokeless Tobacco: Former Alcohol Use Standard Drinks/Week Comments Not Currently 0 (1 standard drink = 0.6 oz pure alcohol) previously heavy drinker. Last drink 12/2019 AUDIT-C Answer Date Recorded Q1: How often do you have a drink containing alc ohol? Never 06/04/2023 Average Number of Drinks Not on file 023 Frequency of Binge Drinking Not on file 05/18 PHQ-2 Answer Date Recorded PHQ-2 Total Score (If total score is 3 or more points, staff should administer the PHQ-9) 2 06/20/2021 Personal Safety Answer Date Recorded Have you ever been in or are you currently in a harmful physical or emotional relationship or is someone making you feel afraid or unsafe? Denies 06/04/2023 Sex and Gender Information Value Date Recorded Sex Assigned at Not on file Legal Sex Male 8:48 AM CDT Gender Identity Not on file Sexual Orientation Not on file documented as of this encounter Miscellaneous Notes * Telephone Encounter - Guillermina Jade RN - 05/28/2024 10:39 AM MATE FISHING VESSEL GI PROCEDURE PRE CALL - 7 DAY CALL Discussed with: Unable to get a hold of patient, left message for SUNSHINE Smith [] Spoke with patient and confirmed procedure, physician, location, date, arrival time [x] No answer. Left detailed voicemail asking Sarah to return call GENERAL INSTRUCTIONS [] Bring medication list, photo ID, and insurance card [] Review general procedure process. The Endo nurse will review your medical history, place an IV, and you will meet anesthesia team. We will monitor you after the procedure until it is safe for you to go home. Please plan to spend at least four hours here for the entire process. [] Patient will need a frontload driver or responsible adult. Since you will be receiving sedation, you will not be able to drive or leave without someone who can monitor you. You must have a ride arranged to and from the hospital with a responsible adult. If you will be going home by way of a transport service a responsible adult will need to be with you. The nurse will call to confirm your transportationand if they are unable to confirm your procedure will be cancelled. [] Instructed patient to remove all jewelry and piercing before procedure. Notes/Issues: call: Nidia [phone] if unable to come to appt / and or need to reschedule. FISHING VESSEL documented in this encounter Plan of Treatment Not on file documented as of this encounter Visit Diagnoses Not on filedocumented in this encounter Care Teams Cream Ripener Relationship Specialty Start Date End Date Michelle Delcid MD [address] [place] [address] PCP - General Family Medicine 04/27/22 documented as of this encounter
--- OUTSIDE RECORDS SUMMARY | 2024-06-27 04:52 | XMS_ITS | Encounter Summary ---
Author Organization [facility] Healthcare Address [address] [place] [address] Care Team Providers Care Heavy Equipment Service Technician Name Role Phone Michelle Delcid MD Primary Care Provider [phone] Reason for Visit * Auth/Cert (Routine) Specialty Diagnoses / Procedures Referred By Hoang t Referred To Contact Diagnoses Esophageal varices without bleeding, unspecified esophageal varices type (HCC) Esophageal varices without bleeding, unspecified esophageal varices type (HCC) [I85.00] Procedures PA ESOPHAGOGASTRODUODENOSCOPY TRANSORAL DIAGNOSTIC EGD Referral ID Status Reason Start Date Expiration Date Visits Re quested Visits Authorized [id number] 1 1 Encounter Details Date Type Department Care Team (Latest Contact Info) Description 06/04/2024 10:05 AM GLAZING MACHINE OPERATOR - 06/04/2024 11:20 AM [facility] Hospital Encounter [facility] [place] [address] [place] [address] Melody Lilly MD [address] [facility] [address] [place] [address] Discharge Disposition: Discharge to home or self care Social History Tobacco Use Types Packs/Day Years [...] Comments Blood Pressure 123/67 06/04/2024 11:07 AM GLAZING MACHINE OPERATOR Pulse 70 06/04/2024 11:07 AM GLAZING MACHINE OPERATOR Temperature 36.4 ??C (97.5 ??F) 06/04/2024 10:[address] Respiratory Rate 25 06/04/2024 11:07 AM GLAZING MACHINE OPERATOR Oxygen Saturation 95% 06/04/2024 11:07 AM GLAZING MACHINE OPERATOR Inhaled Oxygen Concentration - - Weight 93.9 kg (207 lb) 06/04/2024 10:19 AM GLAZING MACHINE OPERATOR Height 182.9 cm (6') 06/04/2024 10:19 AM GLAZING MACHINE OPERATOR Body Mass Index 28.07 06/04/2024 10:19 AM GLAZING MACHINE OPERATOR documented in this encounter Medications at Time [...] every 6 (six) hours asneeded for pain ProviderCrista MD amLODIPine (NORVASC) 5 mg tablet Take [...] tablet (100 mg total) by mouth daily Crista Faulkner MD Review of Systems A pertinent, focused [...] planned procedure for the reasons stated above. ING MACHINE OPERATOR documented in this encounter Procedure Notes * Melody Lilly MD - 06/04/2024 10:37 AM CSTAssociated Order(s): EGD [facility] Patient Name: Chester Dubose Procedure Date: 06/04/2024 10:37 AM Date of : 1970 Admit Type: Outpatient Age: 53 Gender: Male Attending MD: Melody Lilly M.D. Room: [facility] ENDOSCOPY ROOM 9 Note Status: Finalized Procedure: [...] following this procedure please call my office [phone]). After hours and evenings please call [phone] and speak to the GI fellow oncall [...] 0 Note Initiated On: 06/04/2024 10:37 AM ING MACHINE OPERATOR documented in this encounter Plan of Treatment Not on file documented as of this encounter Procedures Procedure Name Priority Date/Time Associated Diagnosis Comments EGD 06/04/2024 10:37 AM GLAZING MACHINE OPERATOR ESOPHAGOGASTRODUODENOSCOPY 06/04 10:35 AM GLAZING MACHINE OPERATOR Esophageal varices without bleeding, unspecified esophageal varices type (HCC) documented in this encounter Results * EGD (06/04/2024 10:37 AM GLAZING MACHINE OPERATOR) Anatomical Region Laterality Modality Other Narrative Procedure Note Melody Lilly MD - 06/04/2024 10:37 AM CST [facility] Patient Name: Chester Dubose Procedure Date: 06/04/2024 10:37AM Date of : 1970 Admit Type: Outpatient Age: 53 Gender: Male Attending MD: Melody Lilly M.D. Room: [facility] ENDOSCOPY ROOM 9 Note Status: Finalized Procedure: [...] passed under direct vision. The GIF [id number] endoscope was introducedthrough the mouth, and advanced [...] following this procedure please call my office [phone]). After hours and eveningsplease call [phone] and speak to the GI fellow oncall [...] Primary Esophageal varices without mention of bleeding documented in this encounter Admitting Diagnoses Diagnosis [...] Recently Administered Medications Times are shown in GLAZING MACHINE OPERATOR. Continuous Medication Order 06/02/2024 06/03/2024 06/04/2024 sodium [...] 06/04/2024 documented in this encounter Care Teams Heavy Equipment Service Technician Relationship Specialty Start Date End Date Michelle Delcid MD [address] [place] [address] PCP - General Family Medicine 04/27/22 documented as of this encounter
--- OUTSIDE RECORDS SUMMARY | 2024-06-27 04:52 | XMS_ITS | Encounter Summary ---
Author Organization [facility] Address [address] [place] [address] Care Team Providers Care Lepidopterist Name Role Phone Toni Ravi MD Primary Care Provider [phone] Jomar Noble MD Unavailable Encounter Details Date Type Department Care Team (Late st Contact Info) Description 10/07/2018 Ophth Exam [facility] [address] [place] [address] Christine Trinidad MD [facility] [place] [address] Social History Tobacco Use Types Packs/Day Years [...] No 10/02/2018 documented as of this encounter Plan of Treatment Upcoming Encounters Date Type Department Care Team (Late st Contact Info) Description 08/25/2024 1:10 PM CDT Documentation [facility] [address] [phone] 08/25/2024 1:20 PM CDT Office Visit [facility] [address] [phone] Migue Reeder MD [address] [place] [address] documented as of this encounter Visit Diagnoses Not on filedocumented in this encounter Additional Health Concerns Infection Onset Date Last Indicated Resolved Time 

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
--- OUTSIDE RECORDS SUMMARY | 2024-06-27 04:52 | XMS_ITS | Encounter Summary ---
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 Name Role Phone Michelle Delcid MD Primary Care Provider [phone]- [phone] Reason for Visit * Reason Onset Date Comments GI Preprocedure 05/30/2024 Encounter Details Date Type Department Care Team ([facility] Contact Info) Description 05/30/2024 Telephone [facility] Specialty Services [address] [place] [phone] Guillermina Jade, REJI GI Preprocedure Social History [...] Telephone Encounter - Guillermina Jade RN - 05/30/2024 2:33 PM [facility] GI PROCEDURE PRE CALL - 3 DAY CALL Discussed with: POA Sister Sarah [x] Spoke with Sarah and confirmed procedure, physician, location, date, arrival time [] No answer. Left voicemail asking patient to return call GENERAL INSTRUCTIONS [x] Bring medication list, photo ID, and insurance card [] Review general procedure process. The Endo nurse will review your medical history, place an IV, and you will meet anesthesia team. We will monitor you after the procedure until it is safe for you to go home. Please plan to spend at least four hours here for the entire process. 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 Since you will be [...] The nurse will call to confirm your transportation and if they are unable to confirm your procedure will be cancelled. [] Instructed to remove all jewelry and piercing before procedure. Notes/Issues: Instructed to call: Nidia [phone] if unable to come to appt / and or need to reschedule. Sarah states knows instructions, and has no questions at this time. ER PULLER documented in this encounter Plan of Treatment Not on file documented as of this encounter Visit Diagnoses Not on filedocumented in this encounter Care Teams Rice Field Worker Relationship Specialty Start Date End Date Michelle Delcid MD [address] [place] [id number] PCP - General Family Medicine 04/27/22 documented as of this encounter
--- OUTSIDE RECORDS SUMMARY | 2024-06-27 04:53 | XMS_ITS | Encounter Summary ---
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 Reference Interval Normal ?>/= 90 mL/min/1.73m2 Mildly decreased* ? 60 - 89 mL/min/1.73m2 Mildly to moderately decreased ?45 - 59 mL/min/1.73m2 Moderately to severely decreased ??30 - 44 mL/min/1.73m2 Severely decreased ?15 - 29 mL/min/1.73m2 Kidney Failure ?< 15 ??mL/min/1.73m2 *Relative to young adult level Estimated glomerular filtration rate is determined by the CKD-EPI equation recommended by the National Kidney Foundation (KDIGO 2012 Clinical Practice Guideline for the Evaluation and Management of Chronic Kidney Disease. Kidney Intnl Suppl Jun 2012;3:1). The CKD-EPI equation should not be used for patients with unstable renal function and has not been validated in children and those over 70. Current interpretive data was last reviewed 2020 Blood 03/20/2021 5:23 AM CDT 03/20/2021 5:37 AM CDT us Earline GARCIA LAB BLOOD ORDERABLES Final Resul t KENNY [address] [facility] Department [place] [address] * (ABNORMAL) Differential, auto (03/20/2021 5:23 AM CDT) Neutrophil abs 5.4 1.7 - 6.5 K/cumm KENNY Imm gran abs 0.0 0.0 - 0.1 K/cumm [facility] Lymphocyte abs 0.3(L) 0.8 - 3.3 K/cumm [facility] Monocyte abs 0.3 0.2 - 0.8 K/cumm [facility] Eosinophil abs 0.0 0.0 - 0.5 K/cumm [facility] Basophil abs 0.0 0.0 - 0.1 K/cumm [facility] Neutrophil pct 90.3 % [facility] Comment: Interpretive Data Percent cell count reference ranges are not reported, since discordance with absolute values may lead to misinterpretation of CBC data. Current Interpretive Data was last revised on 2017. Imm gran pct 0.2 % [facility] Comment: Interpretive Data Percent cell count reference ranges are not reported, since discordance with absolute values may lead to misinterpretation of CBC data. Current Interpretive Data was last revised on 2017. Lymphocyte pct 4.5 % [facility] Comment: Interpretive Data Percent cell count reference ranges are not reported, since discordance with absolute values may lead to misinterpretation of CBC data. Current Interpretive Data was last revised on 2017. Monocyte pct 4.8 % [facility] Comment: Interpretive Data Percent cell count reference ranges are not reported, since discordance with absolute values may lead to misinterpretation of CBC data. Current Interpretive Data was last revised on 2017. Eosinophil pct 0.0 % [facility] Comment: Interpretive Data Percent cell count reference ranges are not reported, since discordance with absolute values may lead to misinterpretation of CBC data. Current Interpretive Data was last revised on 2017. Basophil pct 0.2 % [facility] Comment: Interpretive Data Percent cell count reference ranges are not reported, since discordance with absolute values may lead to misinterpretation of CBC data. Current Interpretive Data was last revised on 2017. Blood 03/20/2021 5:23 AM CDT 03/20/2021 5:37 AM CDT us Earline GARCIA LAB BLOOD ORDERABLES Final Resul t KENNY [address] [facility] Department [place] [address] * Lipase (03/20/2021 5:23 AM CDT) [facility] Lipase 36 10 - 99 Units/L [facility] Blood 03/20/2021 5:23 AM CDT 03/20/2021 5:37 AM CDT Earline GARCIA LAB BLOOD ORDERABLES Final Resul t Performing Organization Address City/[facility] Co de Phone Number [address] [place] [address] * (ABNORMAL) CBC with auto differential (03/20/2021 5:23 AM CDT) [facility] WBC 6.0 3.8 - 9.9 K/cumm [facility] Hgb 13.2 13.0 - 17.5 g/dL [facility] Hct 38.0(L) 38.9 - 50.3 % [facility] Plt 97(L) 150 - 400 K/cumm [facility] MPV 10.7 9.1 - 12.3 fL [facility] RBC 4.55 4.30 - 5.80 M/cumm [facility] MCV 83.5 81.3 - 96.4 fL [facility] MCH 29.0 27.1 - 33.3 pg [facility] MCHC 34.7 32.3 - 35.7 g/dL [facility] RDW CV 15.5(H) 11.1 - 14.9 % [facility] RDW SD 46.9 35.7 - 48.1 fL [facility] NRBC abs 0.00 0.00 - 0.01 K/cumm [facility] Blood 03/20/2021 5:23 AM CDT 03/20/2021 5:37 AM CDT Earline GARCIA LAB BLOOD ORDERABLES Final Resul t Performing Organization Address City/[facility]/ZIP Co de Phone Number [address] [place] [address] * (ABNORMAL) Comprehensive metabolic panel (03/20/2021 5:23 AM CDT) [facility] Sodium 135 135 - 145 mmol/L [facility] Potassium, pl 3.8 3.3 - 4.9 mmol/L [facility] Chloride 102 97 - 110 mmol/L [facility] CO2 20(L) 22 - 32 mmol/L [facility] Anion gap 13 2 - 15 mmol/L [facility] BUN 10 8 - 25 mg/dL [facility] Creatinine 0.70(L) 0.80 - 1.30 mg/dL [facility] Comment:The specimen is icte sanket. A high bilirubin level is known to cause a false decrease in measured creatinine. Glucose 134 70 - 199 mg/dL [facility] Comment: Interpretive Data Fasting glucose >/= 126 mg/dl is diagnostic for diabetes. ?? Fasting is defined as no caloric intake for at least 8 hours. Fasting glucose between 100 mg/dl to 125 mg/dl is diagnostic of prediabetes. In a patient with classic symptoms of hyperglycemia or hyperglycemic crisis, a random glucose >/= 200 mg/dl is diagnostic for diabetes. In the absence of unequivocal hyperglycemia, results should be confirmed by repeat testing. The classification and Diagnosis of Diabetes Diabetes Care 2017;40 (Suppl. 1):S11. Current interpretive data was last revised 2017. Calcium 9.0 8.5 - 10.3 mg/dL [facility] Bilirubin, total 2.5(H) 0.1 - 1.2 mg/dL [facility] Protein, pl 7.0 6.5 - 8.5 g/dL [facility] Albumin 3.4(L) 3.5 - 5.0 g/dL [facility] Alk phos 110 40 - 130 Units/L [facility] ALT 23 7 - 55 Units/L [facility] AST 55(H) 10 - 50 Units/L [facility] Blood 03/20/2021 5:23 AM CDT 03/20/2021 5:37 AM CDT us Earline GARCIA LAB BLOOD ORDERABLES Final Resul t KENNY [address] [facility] Department [place] [address] documented in this encounter Visit Diagnoses Diagnosis Abdominal pain- Primary Abdominal pain, unspecified site Hematuria, unspecified type documented in this encounter Administered Medications Inactive Administered Medications - up to 3 most recent administrations Medication Order MAR Action Action Date Dose Rate Site ioversoL (OPTIRAY 350) syringe syringe 100 mL 100 mL, intravenous, Once in imaging, contrast, Starting on 03/20/21 at 0823, For 1 dose Contrast Given 03/20/2021 8:30 AM CDT 100 mL Right Forearm metoclopramide (REGLAN) injection 10 mg 10 mg, intravenous, Administer over 1 Minutes, Once, On 03/20/21 at 0842, For 1 dose Given 03/20/2021 9:18 AM CDT 10 mg sodium chloride 0.9% bolus 1,000 mL 1,000 mL, intravenous, Once, On 03/20/21 at 0842, For 1 dose New Bag 03/20/2021 9:18 AM CDT 1,000 mL documented in this encounter Active and Recently Administered Medications Times are shown in CDT. Scheduled Medication Order 03/18/2021 03/19/2021 03/20/2021 metoclopramide (REGLAN) injection 10 mg (COMPLETED) 10 mg, intravenous, Administer over 1 Minutes, Once, On 03/20/21 at 0842, For 1 dose 0918 (Given - Provid er: Radha Luong NP) sodium chloride 0.9% bolus 1,000 mL (COMPLETED) 1,000 mL, intravenous, Once, On 03/20/21 at 0842, For 1 dose 0918 (New Bag - Prov ider: Radha Luong NP)[id number] (Stopped - Provider: Radha Luong NP) PRN Medication Order 03/18/2021 03/19/2021 03/20/2021 ioversoL (OPTIRAY 350) syringe syringe 100 mL (COMPLETED) 100 mL, intravenous, Once in imaging, contrast, Starting on 03/20/21 at 0823, For 1 dose 0830 (Contrast Given - Provider: Polly Gómez, RT) documented in this encounter Orders IV Count Last Ordered Date First Orde red Date SALINE LOCK IV 1 03/20/2021 documented in this encounter
--- OUTSIDE RECORDS SUMMARY | 2024-06-27 04:53 | XMS_ITS | Encounter Summary ---
Author Organization [facility] Address [address] [place] [address] Phone Care Team Providers Care Grinder And Plater Name Role Phone Michelle Delcid MD Primary Care Provider [phone] Encounter Details Date Type Department Care Team (Late st Contact Info) Description 04/30/2024 Telephone [facility] Gastroenterology [address] [place] [address] Medical Office Building [address], [address] [place] [address] Melody Lilly MD [address] [place] [address] Social History Tobacco Use Types Packs/Day Years [...] encounter Miscellaneous Notes * Telephone Encounter - Nidia Avalos - 05/02/2024 10:49 AM CST PROCEDURE Type: EGD Indication: Esophageal varices Referring Physician: Dr. Mahoney Date Referred: Repeat CLINICAL ASSESSMENT [x] Clinical assessment obtained via phone call with patient 05.02.24 [x]COVID/Flu Screening questions []BMI>45, Weight >350 lbs [] Patient had GI procedure/CPAP clinic/GI clinic <30 days (if Yes, no medical screening questions needed unless new clinical issues in last 30 days) Medical screening questions: BMI/Weight: NA CARDIOVASCULAR: None RESPIRATORY/LUNG: COPD/asthma- If severe (FEV1 < 50% of predicted) or continuous O2 no SC. RENAL/LIVER/GI: Cirrhosis- If therapeutic procedure (other than EGD for varices) or if colonoscopy,need recent plt>50 and fibrinogen >120. Otherwise escalate to physician to consider cryoprecipiate or DIANNA GI: Previous COLON or EGD: EGD Hx of Polyps, Vazquez, Barretts:no Hx of Constipation:No Have you ever required a two day prep? N/A BLEEDING/CLOTTING: None NEUROLOGICAL: None ENDOCRINE: None PRIOR PROCEDURE ISSUES: None TAR KETTLE RUNNER/: NA IMPLANTS.: None PSYCH/Behavioral Hx: Yes Schizoaffective, Bi polar type SC has limited security Notes: PACEMAKER/ICD Y/N: No/NA Device info: Last documented device check: Any shocks since last cards visit (if yes must see cardiology for procedure clearance): DIALYSIS Y/N: No/NA []HD- Schedule on non-HD day, see protocol []PD- Drain PD fluid AM of procedure, if colonoscopy order AB ppx, see protocol REGULAR DIABETIC MEDS Y/N: No/NA []Yes- Discuss diabetes medication management with prescribing physician GLP DIABETIC MEDICATIONS Y/N: No/NA None Educated Patient on the need to hold Medication, and to contact their ordering MD or Golf Sales Manager about bridging medication for procedure. No [] Yes - Letter Sent to Ordering Physician/Golf Sales Manager Date sent: Hold instructions: GLP Weight Loss Medications No Educated Patient on the need to hold Medication, and to contact their ordering MD or Golf Sales Manager about bridging medication for procedure. Y/N: No/NA None [] Yes - Letter Sent to Ordering Physician/Golf Sales Manager Hold older Instructions: BLOOD THINNERS/ANTICOAG/ANTIPLATELET (BESIDES ASA) Medication: NONE Physician contacted for hold order/date sent: Hold order Method sent: Date hold received: Hold instructions: CONTINUE ASPIRIN INFORMATION REQUESTED []Imaging: []Medical Progress Note/H&P []Medication list []Other: PATIENT OPTIMIZATION []Physician reviewing escalation: []CPAP: Date scheduled: Outcome : [] Location limitations: Scheduling Scheduling location limitations: Waste Duster needed [x] NA Language: POA [] NA Name: Sarah Dubose, sister Required extended education:no SPECIAL PROCEDURE INSTRUCTIONS Scheduling Notes Procedure information Date of procedure: 06.04.24 Time of procedure: 11:30 AM Arrival time: 10:30 AM Location: [facility] Proceduralist: Dr. Lilly Instructions Method of instructions: MyChart, Mailed Copy, and Verbal [x]Confirmation of ride/search engine marketing manager [x]Post anesthesia restrictions given [x]NPO Instructions: [x]Diet Instructions: [x]Take non-blood thinner prescription meds that morning [x]Bring med list, photo ID, insurance card, no valuables [x]Bring COVID vaccination card (if vaccinated) Bowel Prep Prep prescribed: NA Method of Bowel Prep (RX): NA Copy of instructions also mailed to [facility] pt resides to address on file ZER * Telephone Encounter - Nidia Avalos - 04/30/2024 11:32 AM CST Called and spoke with sister Sarah states is working right now and will c/b tomorrow to schedule ZER * Telephone Encounter - Nidia Avalos - 04/30/2024 11:15 AM CST ----- Message from Nurse May Luke sent at 06/07/2023 8:47 AM WHIZZER ----- Regarding: EGD/ISMAIL Repeat EGD in one year for surveillance, (or earlier if decompensation in 6 months) ZER documented in this encounter Plan of Treatment Not on file documented as of this encounter Visit Diagnoses Diagnosis Esophageal varices without bleeding, unspecified esophageal varices type (HCC)- Primary documented in this encounter Orders Case Request Count Last Ordered Date First Orde red Date CASE REQUEST GI 1 05/02/2024 documented in this encounter Care Teams Grinder And Plater Relationship Specialty Start Date End Date Michelle Delcid MD [address] [place] [address] PCP - General Family Medicine 04/27/22 documented as of this encounter
--- OUTSIDE RECORDS SUMMARY | 2024-06-27 04:53 | XMS_ITS | Encounter Summary ---
Author Organization [facility] Address [address] [place] [address] Phone Care Team Providers Care Rigging Supervisor Name Role Phone Unavailable Primary Care Provider Unavailabl e Reason for Referral * Diagnostic Imaging (Routine) - Closed Specialty Diagnoses / Procedures Referred By Hoang t Referred To Contact Diagnoses Alcoholic cirrhosis of liver with ascites (CMS/HCC) (HCC) Procedures US Abdomen Limited Romeo Mahoney MD [address] [facility] [address] [place] [address] Phone: tel: fax: [address] [address] Referral ID Status Reason Start Date Expiration Date Visits Re quested Visits Authorized [id number] Closed 01/13/2021 02/12/2022 1 1 Reason for Visit * Reason Onset Date Comments Schedule Ultrasound 01/11/2021 Encounter Details Date Type Department Care Team (Late st Contact Info) Description 01/11/2021 Telephone [facility] Gastroenterology [address] [place] [address] Medicine 8th [place] [address] [place] [address] Henrietta Thomas Schedule Ultrasound Social History Tobacco Use Types Packs/Day Years [...] encounter Miscellaneous Notes * Telephone Encounter - Henrietta Thomas - 01/13/2021 8:59 AM CDT I SPOKE with Chester and have him scheduled at [facility] in [place] on 02-04-2021 10:00 am/9:45 am arrival.He is aware to fast for this exam. I am also mailing him an appt reminder. * Telephone Encounter - Henrietta Thomas - 01/11/2021 12:47 PM CDT I called Chester at [phone], I was unable to reach him. I LMOR for a return call. ----- Message from Bibi Greene RN sent at 07/06/2020 10:57 PM SUPERVISOR PROPERTIES ----- Regarding: ultrasound of liver in December [facility] patient needs ultrasound of liver in December. documented in this encounter Plan of Treatment Not on file documented as of this encounter Results * US Abdomen Limited (02/04/2021 10:38 AM CDT) Anatomical Region Laterality Modality Abdomen N/A Ultrasound 02/04/2021 2:23 PM CDT Narrative 02/04/2021 2:25 PM CDT EXAM DESCRIPTION: ?? US ABDOMEN LIMITED REASON FOR STUDY: ?? HCC SCREEN, cirrhosis of the liver ?? TECHNIQUE: ??Ultrasound of the right upper quadrant of the abdomen was performed with grayscale and color doppler. COMPARISON: ?? 07/06/2020 FINDINGS: PANCREAS: ??Pancreas is not seen due to adjacent shadowing bowel gas. LIVER: ??The liver demonstrates mildly heterogeneous echotexture. ??Subtle nodular contour is noted. ??There is no evidence of a discrete hepatic mass. GALLBLADDER: ??Gallbladder is mildly distended with fluid. ??No gallbladder wall thickening or pericholecystic fluid are identified. ??There is no evidence of cholelithiasis. ??The sonographic Anders's sign is negative. BILIARY: ??There is no intrahepatic or extrahepatic biliary ductal dilatation. Common bile duct measures ??0.7 cm in diameter. RIGHT KIDNEY: ??Normal size. Normal echogenicity. No solid mass or cyst. ??No hydronephrosis. Measures ??12.6 cm in length. OTHER: ??No other significant findings. IMPRESSION: ?? 1. ??No evidence of hepatic mass. 2. ??No evidence of ascites. 3. ??Enlarged common bile duct up to 0.7 cm in size, just above the upper limits of normal. ??No intrahepatic biliary ductal dilation. THIS IS AN ELECTRONICALLY VERIFIED FINAL REPORT 02/04/2021 2:25 PM - Electronically signed by Joesp Nassar M.D. AT D: ??02/04/2021 2:25 PM T: Report ID: [id number] Reading Location: ??[id number] Procedure Note Josep Nassar MD - 02/04/2021 EXAM DESCRIPTION: US ABDOMEN LIMITED REASON FOR STUDY: HCC SCREEN, cirrhosis of the liver TECHNIQUE: Ultrasound of the right upper quadrant of the abdomen was performed with grayscale and color doppler. COMPARISON: 07/06/2020 FINDINGS: PANCREAS: Pancreas is not seen due to adjacent shadowing bowel gas. LIVER: The liver demonstrates mildly heterogeneous echotexture. Subtle nodular contour is noted. There is no evidence of a discrete hepaticmass. GALLBLADDER: Gallbladder is mildly distended with fluid. No gallbladderwall thickening or pericholecystic fluid are identified. There is no evidenceof cholelithiasis. The sonographic Anders's sign is negative. BILIARY: There is no intrahepatic or extrahepatic biliary ductaldilatation. Common bile duct measures 0.7 cm in diameter. RIGHT KIDNEY: Normal size. Normal echogenicity. No solid mass or cyst.No hydronephrosis. Measures 12.6 cm in length. OTHER: No other significant findings. IMPRESSION: 1. No evidence of hepatic mass. 2. No evidence of ascites. 3. Enlarged common bile duct up to 0.7 cm in size, just above the upper limits of normal. No intrahepatic biliary ductal dilation. THIS IS AN ELECTRONICALLY VERIFIED FINAL REPORT 02/04/2021 2:25 PM - Electronically signed by Josep Nassar M.D. 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
--- OUTSIDE RECORDS SUMMARY | 2024-06-27 04:53 | XMS_ITS | Encounter Summary ---
Author Organization [facility] Address [address] [place] [address] Phone Care Team Providers Care Laboratory Miller Name Role Phone Michelle Delcid MD Primary Care Provider [phone]- [phone] Reason for Visit * Reason Onset Date Comments Scheduling Testing/Treatment 05/15/2023 Encounter Details Date Type Department Care Team (Late st Contact Info) Description 05/15/2023 Telephone [facility] Gastroenterology [address] [place] [address] Medical Office Building [address], [address] [place] [address] May Shrestha, REJI Scheduling Testing/Treatment Social History Tobacco Use Types Packs/Day Years Used Date Smoking Tobacco: Every Day Cigarettes 0.3 40 Started: 03/1980; Last attempted to quit: 03/2020 Smokeless Tobacco: Former Alcohol Use Standard Drinks/Week Comments Not Currently 0 (1 standard drink = 0.6 oz pure alcohol) previously heavy drinker. Last drink 12/2019 AUDIT-C Answer Date Recorded Q1: How often do you have a drink containing alcohol? Never 10/18/2022 Q2: How many drinks containi ng alcohol do you have on a typical day when you are drinking? Patient does not drink Q3: How often do you have si x or more drinks on one occasion? Never 10/18/2022 PHQ-2 Answer Date Recorded PHQ-2 Total Score (If total score is 3 or more points, staff should administer the PHQ-9) 2 06/20/2021 Sex and Gender Information Value Date Recorded Sex Assigned at Not on file Legal Sex Male 8:48 AM CDT Gender Identity Not on file Sexual Orientation Not on file documented as of this encounter Miscellaneous Notes * Telephone Encounter - May Shrestha RN - 05/15/2023 12:32 PM VACCINATOR Attempted to reach the patient to discuss scheduling per below. No Answer, left message. Mailed letter. ----- Message from Yaneth Ramon RN sent at 10/18/2022 11:58 AM CDT ----- Regarding: Repeat upper endoscopy in 6 months for surveillance Ismail (04/2023) Repeat upper endoscopy in 6 months for surveillance INATOR INATOR documented in this encounter Plan of Treatment Not on file documented as of this encounter Visit Diagnoses Not on filedocumented in this encounter Care Teams Laboratory Miller Relationship Specialty Start Date End Date Michelle Delcid MD [address] [place] [address] PCP - General Family Medicine 04/27/22 documented as of this encounter
--- OUTSIDE RECORDS SUMMARY | 2024-06-27 04:53 | XMS_ITS | Encounter Summary ---
Author Organization [facility] Address [address] [place] [address] Phone Care Team Providers Care Tumor Registrar Name Role Phone Referring, Unknown MD Primary Care Provider Unav ailable Encounter Details Date Type Department Care Team (Late st Contact Info) Description 04/14/2022 Telephone [facility] Gastroenterology [address] 12[address] [place] [address] [place] [address] Henrietta Ivey Social History Tobacco Use Types Packs/Day Years Used Date Smoking Tobacco: Every Day Cigarettes 0.1 40 Started: 03/1980; Last attempted to quit: 03/2020 Cigars Smokeless Tobacco: Former Alcohol Use Standard Drinks/Week Comments Not Currently 0 (1 standard drink = 0.6 oz pure alcohol) previously heavy drinker. Last drink 12/2019 AUDIT-C Answer Date Recorded Q1: How often do you have a drink containing alc ohol? Never 06/20/2021 Average Number of Drinks Not on file 022 Q3: How often do you have si x or more drinks on one occasion? Never 06/20/2021 PHQ-2 Answer Date Recorded PHQ-2 Total Score (If total score is 3 or more points, staff should administer the PHQ-9) 2 06/20/2021 Sex and Gender Information Value Date Recorded Sex Assigned at Not on file Legal Sex Male 8:48 AM CDT Gender Identity Not on file Sexual Orientation Not on file documented as of this encounter Miscellaneous Notes * Addendum Note - Henrietta Ivey - 04/14/2022 2:46 PM CDTAddended by: HENRIETTA IVEY on: 04/14/2022 02:46 PM Modules accepted: Orders * Telephone Encounter - Henrietta Ivey - 04/14/2022 11:22 AM CDT PROCEDURE Type: EGD Indication: Variceal Screen Referring Physician: Romeo Mahoney Date Referred: 04/03/2022 CLINICAL ASSESSMENT [] Clinical assessment obtained via phone call with patients' sister/POA 04.14.2022 [x]COVID Screening questions [x] Covid vaccination yes +2 boosters []BMI>45, Weight >350 lbs (if yes, note restrictions below) BMI Readings from Last 1 Encounters: 03/02/22 29.86 kg/m?? Wt Readings from Last 1 Encounters: 03/02/22 99.9 kg (220 lb 3.2 oz) [] Patient had GI procedure/CPAP clinic/GI clinic [...] to physician to consider cryoprecipiate or DIANNA BLEEDING/CLOTTING: None NEUROLOGICAL: Stroke- If within 1 month escalate to GI physician to consider CPAP referral/continuing blood thinner/reschedule. No SC if within past year or pt can't consent hermoraegic stroke -2021 ENDOCRINE: None PRIOR PROCEDURE ISSUES: None RESEARCH INTERVIEWER/: NA IMPLANTS.: None Notes: DIABETIC MEDS Y/N: No/NA []Yes- Discuss diabetes medication management with prescribing physician DIALYSIS Y/N: No/NA []HD- Schedule on non-HD day, see protocol []PD- Drain PD fluid AM of procedure, if colonoscopy order AB ppx, see protocol PACEMAKER/ICD Y/N: No/NA Device info: Last documented device check: Any shocks since last cards visit (if yes must see cardiology for procedure clearance): BLOOD THINNERS/ANTICOAG/ANTIPLATELET (BESIDES ASA) Medication: NONE Physician contacted for hold order/date sent: Hold order Method sent: Date hold received: Hold instructions: CONTINUE ASPIRIN INFORMATION REQUESTED []Imaging: []Medical Progress Note/H&P []Medication list []Other: PATIENT OPTIMIZATION []Physician reviewing escalation: []CPAP: Date scheduled: Outcome : [] Location limitations: Scheduling Scheduling location limitations: Oven Dauber needed [] NA Language: POA [x] NA Name: SPECIAL PROCEDURE INSTRUCTIONS Scheduling Notes Procedure information Date of procedure: Time of procedure: Arrival time: Location: Proceduralist: Instructions Method of instructions: Mailed copy and Verbal [x]Confirmation of ride/adult remedial education instructor [x]Post anesthesia restrictions given [x]NPO Instructions: [x]Diet Instructions: [x]Take non-blood thinner prescription meds that morning [x]Bring med list, photo ID, insurance card, no valuables [x]Bring COVID vaccination card (if vaccinated) Bowel Prep Prep prescribed: NA Method of Bowel Prep (RX): NA ----- Message from Bibi Greene RN sent at 04/03/2022 8:46 AM CDT ----- Regarding: follow [place] egd [facility] [place]. Low plts and previous varices. Anyone is fine. documented in this encounter Plan of Treatment Not on file documented as of this encounter Visit Diagnoses Diagnosis Hepatic cirrhosis, unspecified hepatic cirrhosis type, unspecified whether ascites present (HCC)- Primary documented in this encounter Orders Case Request Count Last Ordered Date First Orde red Date CASE REQUEST GI 1 04/14/2022 documented in this encounter Care Teams Tumor Registrar Relationship Specialty Start Date End Date Referring, Unknown, PCP - General Pediatrics 03/19/22 04/26/22 documented as of this encounter
--- OUTSIDE RECORDS SUMMARY | 2024-06-27 04:53 | XMS_ITS | Encounter Summary ---
Author Organization [facility] Address [address] [place] [address] Phone Care Team Providers Care Instrumentation Engineering Technician Name Role Phone Michelle Delcid MD Primary Care Provider [phone] Encounter Details Date Type Department Care Team (Late st Contact Info) Description 05/08/2022 Orders Only [facility] [address] [place] [address] [address] [place] [address] May Shrestha RN Social History Tobacco Use Types Packs/Day Years [...] have a drink containing alc ohol? Never 05/04/2022 Average Number of Drinks Not on file 022 Frequency of Binge Drinking Not on file 04/18 PHQ-2 Answer Date Recorded PHQ-2 Total Score (If total score is 3 or more points, staff should administer the PHQ-9) 2 06/20/2021 Sex and Gender Information Value Date Recorded Sex Assigned at Not on file Legal Sex Male 8:48 AM CDT Gender Identity Not on file Sexual Orientation Not on file documented as of this encounter Ordered Prescriptions Prescription Sig Dispense Quantity Refills Last Filled Start Date End Date pantoprazole DR (PROTONIX) 40 mg EC tablet Take 1 tablet (40 mg total) by mouth daily 30 tablet 2 05/08/2022 06/04/2023 documented in this encounter Plan of Treatment Not on file documented as of this encounter Visit Diagnoses Not on filedocumented in this encounter Discontinued Medications Medication Sig Discontinue Reason Start Date End Da te pantoprazole DR (PROTONIX) 40 mg EC tablet Take 1 tablet (40 mg total) by mouth daily Reorder 05/04/2022 05/08/2022 documented as of this encounter Care Teams Instrumentation Engineering Technician Relationship Specialty Start Date End Date Michelle Delcid MD [address] [place] [address] PCP - General Family Medicine 04/27/22 documented as of this encounter
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
--- OUTSIDE RECORDS SUMMARY | 2024-06-27 04:53 | XMS_ITS | Encounter Summary ---
Author Organization [facility] Address [address] [place] [address] Phone Care Team Providers Care Fruit Bar Maker Name Role Phone Unavailable Primary Care Provider Unavailabl e Reason for Referral * Diagnostic Imaging (Routine) - Closed Specialty Diagnoses / Procedures Referred By Contac t Referred To Contact Diagnoses SOB (shortness of breath) Generalized abdominal discomfort Procedures US Abdomen Limited Romeo Mahoney MD [address] [facility] [address] [place] [address] Phone: tel: fax: [address] [phone] Referral ID Status Reason Start Date Expiration Date Visits Re quested Visits Authorized [id number] Closed 09/28/2020 10/28/2021 1 1 Encounter Details Date Type Department Care Team (Late st Contact Info) Description 09/28/2020 Telephone [facility] Gastroenterology [address] [facility] 8th [place] [address] [place] [address] Henrietta Thomas Social History Tobacco Use Types Packs/Day Years Used Date Smoking Tobacco: Former Cigarettes 1 40 1 - 03/2020 Smokeless Tobacco: Former Alcohol Use Standard Drinks/Week Comments Not Currently 0 (1 standard drink = 0.6 oz pure alcohol) previously heavy drinker. Last drink 12/2019 AUDIT-C Answer Date Recorded Q1: How often do you have a drink containing alc ohol? Never 09/07/2020 Average Number of Drinks Not on file 021 Frequency of Binge Drinking Not on file 08/17 PHQ-2 Answer Date Recorded PHQ-2 Total Score 2 09/07/2020 Sex and Gender Information Value Date Recorded Sex Assigned at Not on file Legal Sex Male 8:48 AM CDT Gender Identity Not on file Sexual Orientation Not on file documented as of this encounter Miscellaneous Notes * Telephone Encounter - Henrietta Thomas - 09/28/2020 8:30 AM CDT I spoke with Chester and have him scheduled at [facility] in [place] on 10.07.2020 at 12:50 pm. He isaware to fast for this exam. I am also mailing him an appt reminder. I also explained that if his symptoms worsen to go to the ED for eval and to call our office. He verbalized understanding. ----- Message from Bibi Greene RN sent at 09/27/2020 2:06 PM CDT ----- Regarding: ultrasound of [place] [facility] of liver to eval for ascites. Pt complains of mild discomfort and S.O.B. but may just be weight gain. documented in this encounter Plan of Treatment Not on file documented as of this encounter Results * US Abdomen Limited (10/07/2020 12:02 PM CDT) Anatomical Region Laterality Modality Abdomen N/A Ultrasound 10/07/2020 12:2 1 PM CDT Narrative 10/07/2020 12:23 PM CDT Patient Name: CHESTER BRUMFIELD JR ?Ordering Dr: Romeo Mahoney MD ?? D.O.B: 1970 ? Exam Date: 10/07/20 ?? 1202 ?? Age: 50 ?Sex: Male ? MR#: [id number] ?? Loc: ? RADIOLOGY REPORT ?? Order #[id number] ?? Ultrasound ? US Abdomen/Lmt Exam Spec Organ ? Signed ?? EXAM DESCRIPTION: ?? US Abdomen/Lmt Exam Spec Organ ? REASON FOR STUDY: ?? History of alcoholic cirrhosis. ??Abdominal swelling and ?? weight gain over the past 2 weeks. ??Evaluate for ascites. ? TECHNIQUE: ??Limited Static and real time imaging performed of the 4 abdominal ?? quadrants. ? COMPARISON: ?? Ultrasound from 07/06/2020. ? FINDINGS: ? Ultrasound images obtained in each quadrant of the abdomen demonstrate no ?? evidence of ascites. ? IMPRESSION: ?? No evidence of ascites. ? THIS IS AN ELECTRONICALLY VERIFIED FINAL REPORT ?? 10/07/2020 12:23 PM - Electronically signed by Javier Wilkes M.D. ?? Javier Wilkes M.D. ? AB ?? D: ??10/07/2020 12:23 PM ?? T: ? Report ID: [id number] ?? Reading Location: ??[id number] ? REPORT ELECTRONICALLY SIGNED IN OTHER VENDOR SYSTEM ?? Resulting Agency Comment O Procedure Note Javier Wilkes MD - 10/07/2020 Patient Name: CHESETR BRUMFIELD Dr: Romeo Mahoney MD D.O.B: 1970 Exam Date: 10/07/20 1202 Age: 50 Sex: Male MR#: [id number] Loc: RADIOLOGY REPORT Order #[id number] Ultrasound US Abdomen/Lmt Exam Spec Organ Signed EXAM DESCRIPTION: US Abdomen/Lmt Exam Spec Organ REASON FOR STUDY: History of alcoholic cirrhosis. Abdominal swellingand weight gain over the past 2 weeks. Evaluate for ascites. TECHNIQUE: Limited Static and real time imaging performed of the 4abdominal quadrants. COMPARISON: Ultrasound from 07/06/2020. FINDINGS: Ultrasound images obtained in each quadrant of the abdomen demonstrate no evidence of ascites. IMPRESSION: No evidence of ascites. THIS IS AN ELECTRONICALLY VERIFIED FINAL REPORT 10/07/2020 12:23 PM - Electronically signed by Javier Wilkes M.D. 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
--- OUTSIDE RECORDS SUMMARY | 2024-06-27 04:53 | XMS_ITS | Encounter Summary ---
Author Organization [facility] Address [address] [place] [address] Phone Care Team Providers Care Motor Room Controller Name Role Phone Unavailable Primary Care Provider Unavailabl e Reason for Referral * Diagnostic Imaging (Routine) - Closed Specialty Diagnoses / Procedures Referred By Contac t Referred To Contact Diagnoses Alcoholic cirrhosis of liver with ascites (CMS/HCC) (HCC) Procedures US Abdomen Limited Romeo Mahoney MD 1 [facility] [address] [place] [address] Phone: tel: fax: [facility] [address] [place] [address] Referral ID Status Reason Start Date Expiration Date Visits Re quested Visits Authorized [id number] Closed 03/02/2022 04/01/2023 1 1 Reason for Visit * Consultation (Routine) - Closed Specialty Diagnoses / Procedures Referred By Contac t Referred To Contact Gastroenterology Diagnoses Generalized abdominal discomfort Emir Crawford MD [address] [place] [address] Phone: tel: fax: [facility] (All Locations) Referral ID Status Reason Start Date Expiration Date V isits Requested Visits Authorized [id number] Closed Specialty Services Required 02/15/2022 03/17/2023 30 30 Encounter Details Date Type Department Care Team (Late st Contact Info) Description 03/02/2022 4:20 PM CDT Office Visit [facility] Gastroenterology [address] [facility] [facility] [address] 12th [place] [address] [place] [address] Romeo Mahoney MD [address] [facility] [address] [place] [address] Alcoholic cirrhosis of liver with ascites (CMS/HCC) (HCC) (Primary Dx); Secondary esophageal varices without bleeding (CMS/HCC) (HCC); Generalized abdominal discomfort; Alcoholic cirrhosis of liver without ascites (CMS/HCC) (HCC); 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); Hepatic encephalopathy (CMS/HCC) (HCC) Social History Tobacco Use Types Packs/Day [...] Sign Reading Time Taken Comments Blood Pressure 134/88 03/02/2022 4:07 PM CDT Pulse 88 03/02/2022 4:07 PM CDT Temperature 36.4 ??C (97.6 ??F) 03/02/2022 4:07 PM CD T Respiratory Rate - - Oxygen Saturation - - Inhaled Oxygen Concentration - - Weight 99.9 kg (220 lb 3.2 oz) 03/02/2022 4:07 P M CDT Height 182.9 cm (6') 03/02/2022 4:07 PM CDT Body Mass Index 29.86 03/02/2022 4:07 PM CDT documented in this encounter Progress Notes * Romeo Mahoney MD - 03/02/2022 4:20 PM CDT Hepatology Consult Subjective Patient is a 51 y.o. male with chief complaint of cirrhosis. Reason for consult: Evaluation and management Requesting Provider: Emir Crawford M.D. HPI: He returns after having been seen during a hospitalization in February,, for hematemesis. At the time, he had a long history of alcohol dependence and substance abuse. Imaging showed a cirrhotic liver. Although he had a history of chronic hepatitis-C, a hepatitis-C viral load has been undetectable. He is had no additional endoscopic follow-up at our institution. He was seen in our emergencyroom in August,, with suicidal ideation. At that time, he had a total bilirubin of 1.2, AST 98 and ALT 55. A drug screen was positive for amphetamines and cannabinoids. The last available imagingstudy was an ultrasound of the abdomen in August,, showing cirrhosis. There was only a trace ofperi- hepatic fluid. He is now drug and alcohol free and living [place]. He was accompanied on today's visit by his sister. He denied swelling of the abdomen and lower extremities. His thinking has been clear. Review of Systems: Review of systems per HPI and otherwise all other systems are negative. Vitals: Most Recent : Vitals BP 134/88 Pulse 88 Temp 36.4 ??C (97.6 ??F) Ht 182.9 cm (6') Wt 99.9 kg (220 lb 3.2 oz) BMI 29.86 kg/m?? Objective Physical Exam: General Appearance: Alert, cooperative, no distress, appears stated age, well developed, well nourished Head: Normocephalic, without obvious abnormality, atraumatic Eyes: PERRL, conjunctiva/corneas clear, EOM's intact, both eyes, anicteric Ears: Normal TM's and external ear canals, both ears Nose: Nares normal, septum midline, mucosa normal, no drainage or sinus tenderness Throat: Lips, mucosa, and tongue normal; teeth and gums normal, mucous membranes moist Neck: Supple, symmetrical, trachea midline, no adenopathy; thyroid: No enlargement/tenderness/nodules; no carotid bruit or JVD Back: Symmetric, no curvature, ROM normal, no CVA tenderness Lungs: Clear to auscultation bilaterally, respirations unlabored Cardiovascular: Regular rate and rhythm, S1 and S2 normal, no murmur, rub or gallop, no edema, pulses 2+ and symmetric to all extremities Abdomen: Soft, non-tender, bowel sounds active all four quadrants, no masses, no organomegaly, non-distended Extremities: Extremities normal, atraumatic, no cyanosis, no clubbing Skin: Skin color, texture, turgor normal, no rashes, lesions or bruising Lymph nodes: Cervical, supraclavicular, and axillary nodes normal Neurologic: Alert & oriented x 4, CNII-XII intact. Normal strength, sensation and reflexes throughout Psychosocial: Normal affect and mood Lab/Radiology/Diagnostic Review: Laboratory review: reviewed the laboratory result(s) as outlined in HPI. Imaging review: I have reviewed the result(s) as outlined in HPI. Assessment/Plan Problem List Items Addressed This Visit Gastroenterology Problems Alcoholic cirrhosis of liver without ascites (CMS/HCC) (HCC) - Primary Currently well compensated and without obvious ascites. I will check labs today to assess hepatic synthetic function. I have also ordered an ultrasound to screen for hepatocellular carcinoma and to check for ascites. Today I see no obvious need for a change in medical management. Further recommendations to follow. Esophageal varices (HCC) Based on history. He had grade 2 varices in 2019. With his history and a platelet count that remains under 100,000, a follow-up EGD will be needed. 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 A return to heavy drinking will clearly lead to further hepatic decompensation. Hepatic encephalopathy (CMS/HCC) (HCC) No evidence of recurrence. Currently not on medical management. Other Visit Diagnoses Generalized abdominal discomfort documented in this encounter Miscellaneous Notes * Assessment & Plan Note - Romeo Mahoney MD - 03/02/2022 8:08 PM CDT Associated Problem(s): Hepatic encephalopathy (HCC) No evidence of recurrence. Currently not on medical management. 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 A return to heavy drinking will clearly lead to further hepatic decompensation. * Assessment & Plan Note - Romeo Mahoney MD - 03/02/2022 8:07 PM CDT Associated Problem(s): Esophageal varices (HCC) Based on history. He had grade 2 varices in 2019. With his history and a platelet count that remains under 100,000, a follow-up EGD will be needed. * Assessment & Plan Note - Romeo Mahoney MD - 03/02/2022 8:06 PM CDT Associated Problem(s): Alcoholic cirrhosis of liver without ascites (CMS/HCC) (HCC) Currently well compensated and without obvious ascites. I will check labs today to assess hepatic synthetic function. I have also ordered an ultrasound to screen for hepatocellular carcinoma and to check for ascites. Today I see no obvious need for a change in medical management. Further recommendations to follow. documented in this encounter Plan of Treatment Not on file documented as of this encounter Results * US Abdomen Limited (03/31/2022 11:34 AM CDT) Anatomical Region Laterality Modality Abdomen N/A Ultrasound 03/31/2022 11:3 8 AM CDT Impressions 03/31/2022 11:44 AM CDT 1. Small liver with coarse echotexture and nodular surface consistent with cirrhosis. ??Findings of portal hypertension with reversal of portal vein flow. 2. US LI-RADS Screening/Surveillance Category: US 1 - Negative. 3. Visualization Score: B: Moderate limitations in liver visualization. US LI-RADS REFERENCE: US Category: US-1 Negative: No evidence of hepatocellular carcinoma (HCC). US-2 Subthreshold: Observation detected that may warrant short-interval US surveillance. Observation<10 mm in diameter, not definitely benign. US-3 Positive: Observation detected that may warrant multi-phase contrast-enhanced imaging. Observation >/= 10 mm in diameter or new thrombus in vein. Visualization Score: A. No or minimal limitations: Limitations, if any, are unlikely to meaningfully affect sensitivity. The liver is homogenous or minimally heterogenous with minimal beam attenuation or shadowing, and is visualized in near entirety. B. Moderate limitations: Limitations may obscure small masses. The liver is moderately heterogenous with moderate beam attenuation or shadowing, and some portions of the liver or diaphragm are not visualized. C. Severe limitations: Limitations significantly lower sensitivity for focal liver lesions. The liver is severely heterogeneous with severe beam attenuation or shadowing, and the majority (>50%) of the liver or diaphragm is not visualized. Dictated by: Raquel Iqbal MD The radiology attending physician has personally reviewed this study, and had reviewed and/or edited this written report and agrees with it. Electronically signed by: Kenyon Boss M.D. Narrative 03/31/2022 11:44 AM CDT EXAMINATION: LIVER SONOGRAM HISTORY: ??Alcoholic cirrhosis. Screening for hepatocellular carcinoma. COMPARISON: ??CT abdomen pelvis dated 03/20/2021. FINDINGS: ?? Liver: Visualization Score: B: Moderate limitations in liver visualization. Morphology/Parenchyma/contour: The liver is decreased in size. ??The echotexture is coarse. ??The echogenicity is normal. There is surface nodularity. Liver observations: No focal solid lesion is visualized. Ascites: No ascites. Other: There are findings of portal hypertension with reversed flow in the portal vein. Procedure Note Kenyon Boss MD PhD - 03/31/2022 EXAMINATION: LIVER SONOGRAM HISTORY: Alcoholic cirrhosis. Screening for hepatocellular carcinoma. COMPARISON: CT abdomen pelvis dated 03/20/2021. FINDINGS: Liver: Visualization Score: B: Moderate limitations in liver visualization. Morphology/Parenchyma/contour: The liver is decreased in size. The echotexture is coarse. The echogenicity is normal. There is surface nodularity. Liver observations: No focal solid lesion is visualized. Ascites: No ascites. Other: There are findings of portal hypertension with reversed flow in the portal vein. IMPRESSION: 1. Small liver with coarse echotexture and nodular surface consistent with cirrhosis. Findings of portal hypertension with reversal of portal vein flow. 2. US LI-RADS Screening/Surveillance Category: US 1 - Negative. 3. Visualization Score: B: Moderate limitations in liver visualization. US LI-RADS REFERENCE: US Category: US-1 Negative: No evidence of hepatocellular carcinoma (HCC). US-2 Subthreshold: Observation detected that may warrant short-interval US surveillance. Observation<10 mm in diameter, not definitely benign. US-3 Positive: Observation detected that may warrant multi-phase contrast-enhanced imaging. Observation >/= 10 mm in diameter or new thrombus in vein. Visualization Score: A. No or minimal limitations: Limitations, if any, are unlikely to meaningfully affect sensitivity. The liver is homogenous or minimally heterogenous with minimal beam attenuation or shadowing, and is visualized in near entirety. B. Moderate limitations: Limitations may obscure small masses. The liver is moderately heterogenous with moderate beam attenuation or shadowing, and some portions of the liver or diaphragm are not visualized. C. Severe limitations: Limitations significantly lower sensitivity for focal liver lesions. The liver is severely heterogeneous with severe beam attenuation or shadowing, and the majority (>50%) of the liver or diaphragm is not visualized. Dictated by: Raquel Iqbal MD The radiology attending physician has personally reviewed this study, and had reviewed and/or edited this written report and agrees with it. Electronically signed by: Kenyon Boss M.D. us Romeo Mahoney MD IMG US PROCEDURES Jasmin l Result * Hymjx-0-Nysxxcaqing, Tumor Marker (03/02/2022 5:19 PM CDT) alpha Fetoprotein 2.6 <=8.3 ng/mL [facility] Comment: Interpretive Data The [employer] AFP assay procedure was used. Results from different manufacturers or methods may not be comparable. Serial testing should be performed using the same method. 0-1 ??month. ?? AFP concentrations may reach or exceed 100,000 ng/mL after depending on gestational age and weight. 1-3 months ? 50 ? 1000 ng/ml 3-6 months ? 10 ? 500 ng/ml 6-12 months ?3.0 ? 100 ng/ml >1 year ?0.0 ? 8.3 ng/ml References Sharon Tariq. et al. ??J. Ped Surg 1978;13:155-156 Amaya S. et al. Clin Chem Lab Med 2018;57:783-797 Fidenuris Gallardo et al. ??Clin Chem 2014;3523-2872. Current interpretive data was last revised 2022. Blood 03/02/2022 5:19 PM CDT 03/02/2022 6:08 PM CDT Romeo Mahoney MD LAB BLOOD ORDERABLES F inal Result [facility] One [facility] Department [place] [address] * (ABNORMAL) Protime-INR (03/02/2022 5:19 PM CDT) PT 15.1(H) 9.2 - 13.5 sec [facility] INR 1.4(H) 0.9 - 1.2 [facility] Comment: Interpretive data Oral anticoagulant therapeutic ranges: Venous thromboembolism prophylaxis or treatment: 2.0-3.0 CARDIOLOGY Standard range: 2.0-3.0 High-intensity range: 2.5-3.5 Refer to indication-specific guidelines for appropriate target ranges for prosthetic heart valve replacement. Current interpretive data was last revised on 2019. Blood 03/02/2022 5:19 PM CDT 03/02/2022 6:15 PM CDT Romeo Mahoney MD LAB BLOOD ORDERABLES F inal Result Performing Organization Address [facility] Co de Phone Number [facility] [place] [address] * (ABNORMAL) CBC without differential (03/02/2022 5:19 PM CDT) WBC 4.7 3.8 - 9.9 K/cumm [facility] Hgb 13.0 13.0 - 17.5 g/dL [facility] Hct 37.6(L) 38.9 - 50.3 % [facility] Plt 80(L) 150 - 400 K/cumm [facility] MPV 10.2 9.1 - 12.3 fL [facility] RBC 4.11(L) 4.30 - 5.80 M/cumm [facility] MCV 91.5 81.3 - 96.4 fL [facility] MCH 31.6 27.1 - 33.3 pg [facility] MCHC 34.6 32.3 - 35.7 g/dL [facility] RDW CV 14.6 11.1 - 14.9 % [facility] RDW SD 48.4(H) 35.7 - 48.1 fL [facility] NRBC abs 0.00 0.00 - 0.01 K/cumm [facility] Blood 03/02/2022 5:19 PM CDT 03/02/2022 6:08 PM CDT Romeo Mahoney MD LAB BLOOD ORDERABLES F inal Result Performing Organization Address [facility]/ZIP Co de Phone Number [facility] [place] [address] * (ABNORMAL) Comprehensive metabolic panel (03/02/2022 5:19 PM CDT) Sodium 142 135 - 145 mmol/L [facility] Potassium, pl 4.0 3.3 - 4.9 mmol/L [facility] Chloride 110 97 - 110 mmol/L [facility] CO2 26 22 - 32 mmol/L [facility] Anion gap 6 2 - 15 mmol/L [facility] BUN 8 8 - 25 mg/dL [facility] Creatinine 0.69(L) 0.80 - 1.30 mg/dL [facility] Glucose 111 70 - 199 mg/dL [facility] Comment: Interpretive Data Fasting glucose >/= 126 [...] interpretive data was last revised 2017. Calcium 8.9 8.5 - 10.3 mg/dL [facility] Bilirubin, total 0.6 0.1 - 1.2 mg/dL [facility] Protein, pl 6.9 6.5 - 8.5 g/dL [facility] Albumin 3.6 3.5 - 5.0 g/dL [facility] Alk phos 166(H) 40 - 130 Units/L [facility] ALT 20 7 - 55 Units/L [facility] AST 42 10 - 50 Units/L [facility] Blood 03/02/2022 5:19 PM CDT 03/02/2022 6:08 PM CDT us Romeo Mahoney MD LAB BLOOD ORDERABLES F inal Result [facility] One 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
--- OUTSIDE RECORDS SUMMARY | 2024-06-27 04:53 | XMS_ITS | Encounter Summary ---
Author Organization [facility] Address [address] [place] [address] Phone Care Team Providers Care Shot Peen Operator Name Role Phone Michelle Delcid MD Primary Care Provider [phone]- [phone] Encounter Details Date Type Department Care Team (Late st Contact Info) Description 06/04/2023 Telephone [facility] [address] 12th [place] [address] [place] [address] Bibi Greene RN Social History Tobacco Use Types Packs/Day [...] encounter Miscellaneous Notes * Telephone Encounter - Bibi Greene RN - 06/04/2023 3:48 PM CST Results relayed to Sarah. ----- Message from Romeo Mahoney MD sent at 06/04/2023 3:21 PM GAS DISTRIBUTION PLANT OPERATOR ----- Labs reasonable. You don't have to tell him, but too early for transplant. MELD 3.0: 10 at 06/04/2023 2:01 PM MELD-Na: 11 at 06/04/2023 2:01 PM Calculated from: Serum Creatinine: 0.72 mg/dL (Using min of 1 mg/dL) at 06/04/2023 2:01 PM Serum Sodium: 143 mmol/L (Using max of 137 mmol/L) at 06/04/2023 2:01 PM Total Bilirubin: 1.1 mg/dL at 06/04/2023 2:01 PM Serum Albumin: 3.8 g/dL (Using max of 3.5 g/dL) at 06/04/2023 2:01 PM INR(ratio): 1.41 at 06/04/2023 2:01 PM Age at listing (hypothetical): 52 years Sex: Male at 06/04/2023 2:01 PM DISTRIBUTION PLANT OPERATOR DISTRIBUTION PLANT OPERATOR documented in this encounter Plan of Treatment Not on file documented as of this encounter Visit Diagnoses Not on filedocumented in this encounter Care Teams Shot Peen Operator Relationship Specialty Start Date End Date Michelle Delcid MD [address] [place] [address] PCP - General Family Medicine 04/27/22 documented as of this encounter
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
--- OUTSIDE RECORDS SUMMARY | 2024-06-27 04:53 | XMS_ITS | Encounter Summary ---
Author Organization [facility] Medical Group Address [address] [address] Care Team Providers Care Refined Syrup Operator Name Role Phone Unavailable Primary Care Provider Unavailabl e Reason for Visit * Reason Onset Date Comments Restless Legs 11/08/2020 Encounter Details Date Type Department Care Team ([facility] Contact Info) Description 11/08/2020 Telephone [facility] Medical [facility] Primary Care [address] [place] [phone] Aileen Olmstead PA [address] [place] [address] Restless Legs Social History Tobacco Use Types Packs/Day Years [...] encounter Miscellaneous Notes * Telephone Encounter - Magda James RN - 11/08/2020 11:47 AM CDT Patient advised. Transferred to front office manager to schedule. * Telephone Encounter - Aileen Olmstead PA - 11/08/2020 11:16 AM CDT Will need to make appointment to address * Telephone Encounter - Magda James RN - 11/08/2020 11:04 AM CDT Patient c/o worsening RLS over the past two weeks. Reports gabapentin 100 mg q hs initially helped,however states legs jerk all night, interrupting sleep. He is requesting alternative medication. documented in this encounter Plan of Treatment Not on file documented as of this encounter Visit Diagnoses Not on filedocumented in this encounter Additional Health Concerns Infection Onset Date Last Indicated Resolved Time 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
--- OUTSIDE RECORDS SUMMARY | 2024-06-27 04:53 | XMS_ITS | Encounter Summary ---
Author Organization [facility] Address [address] [address] Care Team Providers Care Bolt Loader Name Role Phone Unavailable Primary Care Provider Unavailabl e Reason for Visit * Reason Comments Follow-up 6 month Hep C RLS. 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) Social History Tobacco Use Types Packs/Day Years [...] Sign Reading Time Taken Comments Blood Pressure 132/82 12/02/2020 2:55 PM CDT Pulse 74 12/02/2020 2:55 PM CDT Temperature 36.8 ??C (98.2 ??F) 12/02/2020 2:55 PM CD T Respiratory Rate 16 12/02/2020 2:55 PM CDT Oxygen Saturation 97% 12/02/2020 2:55 PM CDT Inhaled Oxygen Concentration - - Weight 87.9 kg (193 lb 12.8 oz) 12/02/2020 2:55 PM CDT Height 182.9 cm (6') 12/02/2020 2:55 PM CDT Body Mass Index 26.28 12/02/2020 2:55 PM CDT documented in this encounter Ordered Prescriptions Prescription Sig Dispense Quantity Refills Last Filled Start Date End Date pramipexole (MIRAPEX) 0.25 mg tabletIndications: Restless Legs Syndrome Take 1 tablet (0.25 mg total) by mouth nightly 30 tablet 3 12/02/2020 documented in this encounter Progress Notes * Emir Crawford MD - 12/02/2020 2:30 PM CDT Images from the original note were not included. Subjective/Objective Patient ID: Chester Dubose Jr. is a 50 y.o. male. Assessment/Plan Diagnoses and all orders for this visit: Alcoholic cirrhosis of liver with ascites (CMS/HCC) (Primary) Assessment & Plan: Stable. No evidence of ascites. Currently being followed by Dr. Nagy. 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 Has not drank since December of 2019. Chief Complaint Follow-up for chronic conditions HPI: The is here for a six-month follow-up alcoholic cirrhosis, history of hepatitis- C, RLS, and alcoholism in remission.. He has no complaints today. Current Outpatient Medications Medication Sig Dispense Refill ??? acetaminophen 500 mg capsule Take 1 capsule (500 mg total) by mouth every 6 (six) hours as needed for pain 30 tablet 0 ??? famotidine (PEPCID) 20 mg tablet Take 1 tablet (20 mg total) by mouth 2 (two) times a day 180 tablet 0 ??? folic acid (FOLVITE) 1 mg tablet Take 1 tablet (1 mg total) by mouth daily 90 tablet 0 ??? gabapentin (NEURONTIN) 100 mg capsule TAKE (1) CAPSULE BY MOUTH NIGHTLY (Patient taking differently: Take 100 mg by mouth nightly ) 30 capsule 0 ??? hydrOXYzine (ATARAX) 25 mg tablet TAKE 1-2 TABLETS BY MOUTH BEFORE NIGHT TIME (Patient taking differently: Take by mouth TAKE 1-2 TABLETS BY MOUTH BEFORE NIGHT TIME) 60 tablet 0 ??? lactulose 0.67 gram/mL solution Take 30 mL (20 g total) by mouth 3 (three) times a day 2700 mL 11 ??? multivitamin capsule Take 1 capsule by mouth daily ??? pramipexole (MIRAPEX) 0.25 mg tablet Take 1 tablet (0.25 mg total) by mouth nightly 30 tablet 3 ??? tamsulosin (FLOMAX) 0.4 mg extended release capsule TAKE 1 CAPSULE BY MOUTH DAILY (Patient taking differently: Take 0.4 mg by mouth daily ) 30 capsule 0 ??? Xifaxan 550 mg tablet Take 1 tablet (550 mg total) by mouth 2 (two) times a day 60 tablet 11 No current facility-administered medications for this visit. Review of Systems: Review of Systems Constitutional: Negative for appetite change, chills and fever. HENT: Negative for congestion, ear pain, rhinorrhea and sore throat. Eyes: Negative for pain, discharge and visual disturbance. Respiratory: Negative for cough, shortness of breath and wheezing. Cardiovascular: Negative for chest pain, palpitations and leg swelling. Gastrointestinal: Negative for constipation, diarrhea and nausea. Endocrine: Negative for cold intolerance and heat intolerance. Genitourinary: Negative for difficulty urinating, dysuria and urgency. Musculoskeletal: Negative for back pain and joint swelling. Skin: Negative for color change and rash. Allergic/Immunologic: Negative for immunocompromised state. Neurological: Negative for dizziness, numbness and headaches. Hematological: Does not bruise/bleed easily. Psychiatric/Behavioral: Negative for agitation and decreased concentration. The patient is not nervous/anxious. Labs: No results found for this or any previous visit (from the past 1008 hour(s)). Physical Exam: BP 132/82 (BP Location: Left arm, Patient Position: Sitting) Pulse 74 Temp 36.8 ??C (98.2 ??F) (Skin) Resp 16 Ht 182.9 cm (6') Wt 87.9 kg (193 lb 12.8 oz) SpO2 97% BMI 26.28 kg/m?? Physical Exam Constitutional: Appearance: He is well-developed. HENT: Head: Normocephalic and atraumatic. Cardiovascular: Rate and Rhythm: Normal rate and regular rhythm. Heart sounds: Normal heart sounds. No murmur heard. No friction rub. No gallop. Pulmonary: Breath sounds: Normal breath sounds. No wheezing or rales. Abdominal: General: Bowel sounds are normal. There is no distension. Palpations: Abdomen is soft. Tenderness: There is no abdominal tenderness. Skin: General: Skin is warm and dry. Findings: No rash. Neurological: Mental Status: He is alert and oriented to person, place, and time. 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 Has not drank since December of 2019. * Assessment & Plan Note - Emir Crawford MD - 12/01/2020 12:59 PM CDT Associated Problem(s): Restless leg syndrome Stable on pramipexole * Assessment & Plan Note - Emir Crawford MD - 12/01/2020 12:59 PM CDT Associated Problem(s): Esophageal varices (HCC) Status post banding. * Assessment & Plan Note - Emir Crawford MD - 12/01/2020 12:59 PM CDT Associated Problem(s): Drug-induced polyneuropathy (HCC) Stable on gabapentin * Assessment & Plan Note - Emir Crawford MD - 12/01/2020 12:59 PM CDT Associated Problem(s): Hepatic encephalopathy (HCC) Stable on Xifaxan and lactulose * Assessment & Plan Note - Emir Crawford MD - 12/01/2020 12:58 PM CDT Associated Problem(s): History of hepatitis C virus infection Currently undetectable * Assessment & Plan Note - Emir Crawford MD - 12/01/2020 12:57 PM CDT Associated Problem(s): Alcoholic cirrhosis of liver without ascites (CMS/HCC) (HCC) Stable. No evidence of ascites. Currently being followed by Dr. Nagy. 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
--- OUTSIDE RECORDS SUMMARY | 2024-06-27 04:53 | XMS_ITS | Encounter Summary ---
Author Organization [facility] Address [address] [place] [address] Phone Care Team Providers Care Funeral Attendant Name Role Phone Michelle Delcid MD Primary Care Provider [phone]- [phone] Reason for Visit * Reason Onset Date Comments GI Preprocedure 05/17/2023 Encounter Details Date Type Department Care Team (Late st Contact Info) Description 05/17/2023 Telephone [facility] Gastroenterology [address] [place] [address] Medical Office [address], [address] [place] [address] May Shrestha RN GI Preprocedure Social History Tobacco Use Types [...] Miscellaneous Notes * Telephone Encounter - May Shrestha, RN - 05/17/2023 11:38 AM CARDIAC MONITOR TECHNICIAN PROCEDURE Type: EGD Indication: Repeat upper endoscopy in 6 months for surveillance, varices Referring Physician: Dr. Mahoney Date Referred: CLINICAL ASSESSMENT [x] Clinical assessment obtained via phone call with patient 05/17/23 [x]COVID/Flu Screening questions []BMI>45, Weight >350 lbs [...] two day prep? N/A BLEEDING/CLOTTING: None NEUROLOGICAL: Stroke- If within 1 month escalate to GI physician to consider CPAP referral/continuing blood thinner/reschedule. No SC if within past year or pt can't consent 1-2 yrs ago ENDOCRINE: None PRIOR PROCEDURE ISSUES: None TENTERING MACHINE FEEDER/: NA IMPLANTS.: None PSYCH/Behavioral Hx: Yes Bipolar, Schizophrenia SC has limited security Notes: PACEMAKER/ICD Y/N: [...] and to contact their ordering MD or Stock Worker about bridging medication for procedure. NA [x] Yes - Letter Sent to Ordering Physician/Stock Worker Date sent: Hold instructions: GLP Weight Loss Medications No Educated Patient on the need to hold Medication, and to contact their ordering MD or Stock Worker about bridging medication for procedure. Y/N: No/NA None [] Yes - Letter Sent to Ordering Physician/Stock Worker Hold older Instructions: BLOOD THINNERS/ANTICOAG/ANTIPLATELET (BESIDES ASA) Medication: NONE Physician contacted for hold order/date sent: Hold order Method sent: Date hold received: Hold instructions: CONTINUE ASPIRIN INFORMATION REQUESTED []Imaging: []Medical Progress Note/H&P []Medication list []Other: PATIENT OPTIMIZATION []Physician reviewing escalation: []CPAP: Date scheduled: Outcome : [] Location limitations: Scheduling Scheduling location limitations: Binding Machine Operator needed [x] NA Language: POA [] NA Name: Sarah Dubose Required extended education:no SPECIAL PROCEDURE INSTRUCTIONS Scheduling Notes Procedure information Date of procedure: 06/04/23 Time of procedure: 1130 Arrival time: 1030 Location: [facility] Proceduralist: Ismail Instructions Method of instructions: Mailed Copy and Verbal [x]Confirmation of ride/data developer [x]Post anesthesia restrictions given [x]NPO Instructions: [x]Diet Instructions: [x]Take non-blood thinner prescription meds that morning [x]Bring med list, photo ID, insurance card, no valuables [x]Bring COVID vaccination card (if vaccinated) Bowel Prep Prep prescribed: NA Method of Bowel Prep (RX): NA ----- Message from Yaneth Ramon RN sent at 10/18/2022 11:58 AM CDT ----- Regarding: Repeat upper endoscopy in 6 months for surveillance Ismail (04/2023) Repeat upper endoscopy in 6 months for surveillance IAC MONITOR TECHNICIAN IAC MONITOR TECHNICIAN documented in this encounter Plan of Treatment Not on file documented as of this encounter Visit Diagnoses Diagnosis Idiopathic esophageal varices without bleeding (CMS/HCC) (HCC)- Primary documented in this encounter Orders Case Request Count Last Ordered Date First Orde red Date CASE REQUEST GI 1 05/17/2023 documented in this encounter Care Teams Funeral Attendant Relationship Specialty Start Date End Date Michelle Delcid MD [address] [place] [id number] PCP - General Family Medicine 04/27/22 documented as of this encounter
--- OUTSIDE RECORDS SUMMARY | 2024-06-27 04:53 | XMS_ITS | Encounter Summary ---
Author Organization [facility] Address [address] [place] [address] Phone Care Team Providers Care Timber Deadener Name Role Phone Michelle Delcid MD Primary Care Provider [phone]- [phone] Encounter Details Date Type Department Care Team (Late st Contact Info) Description 03/15/2023 1:40 PM CDT Office Visit [facility] Gastroenterology [address] 12th [place] [address] [place] [address] Romeo Mahoney MD [address] [facility] [address] [place] [address] Alcoholic cirrhosis of liver without ascites (CMS/HCC) (HCC) (Primary Dx); 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); Hepatic encephalopathy (HCC); Secondary esophageal varices without bleeding (CMS/HCC) (HCC) Social History Tobacco Use Types [...] you are drinking? Patient does not drink 3 Q3: How often do you have si [...] Sign Reading Time Taken Comments Blood Pressure 110/75 03/15/2023 12:45 PM CDT Pulse 97 03/15/2023 12:45 PM CDT Temperature 36.8 ??C (98.3 ??F) 03/15/2023 12:45 PM C DT Respiratory Rate - - Oxygen Saturation - - Inhaled Oxygen Concentration - - Weight 97.5 kg (215 lb) 03/15/2023 12:45 PM CDT Height 182.9 cm (6') 03/15/2023 12:45 PM CDT Body Mass Index 29.16 03/15/2023 12:45 PM CDT documented in this encounter Progress Notes * Romeo Mahoney MD - 03/15/2023 1:40 PM CDT Hepatology Return Visit Subjective Patient is a 52 y.o. male with chief complaint of cirrhosis. HPI: He returns in follow-up. He is had no known problems since his last visit. He currently lives in a supervised residence and was accompanied by one of the aides. He feels reasonably well. He has had no difficulty with mental status changes, abdominal distention, peripheral edema, or hematemesis. He has not had recent laboratory work. He has not been hospitalized or required a trip to the local emergency room. He denies alcohol use. Review of Systems: As outlined in HPI; all other systems negative. Vitals: Most Recent : Vitals BP 110/75 Pulse 97 Temp 36.8 ??C (98.3 ??F) Ht 182.9 cm (6') Wt 97.5 kg (215 lb) BMI 29.16 kg/m?? Objective Physical Exam: General Appearance: Alert, cooperative, no distress, appears stated age, chronically ill-appearing with temporal and proximal muscle wasting, Head: Normocephalic, without obvious abnormality, atraumatic Eyes: [...] Psychosocial: Normal affect and mood Lab/Radiology/Diagnostic Review: No recent results to review Assessment/Plan Problem List Items Addressed This Visit Gastroenterology Problems Alcoholic cirrhosis of liver without ascites (CMS/HCC) (HCC) - Primary Decompensated based on his history though markedly improved in the face of sustained alcohol abstinence. He understands the importance of maintaining sobriety. A return to heavy drinking will clearlylead to additional liver damage and decompensation. I ordered blood tests to assess hepatic synthetic function and an ultrasound to screen for hepatocellular carcinoma. These studies will be performed locally. He will return in 1 year or when clinically indicated. Relevant Orders Comprehensive metabolic panel CBC without differential Protime-INR [id number], Tumor Marker US Abdomen Limited Esophageal varices (HCC) Grade 1 on follow-up EGD in Oct, 2022. Follow-up EGD recommended in 6 months though, potentially, this could be stretched out to a year. Other 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) I stressed the importance of long-term alcohol abstinence. Hepatic encephalopathy (HCC) Good control on current medical management. No changes indicated. documented in this encounter Miscellaneous Notes * Assessment & Plan Note - Romeo Mahoney MD - 03/15/2023 6:49 PM CDT Associated Problem(s): Hepatic encephalopathy (HCC) Good control on current medical management. No changes indicated. * Assessment & Plan Note - Romeo Mahoney MD - 03/15/2023 6:49 PM CDT Associated Problem(s): 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) I stressed the importance of long-term alcohol abstinence. * Assessment & Plan Note - Romeo Mahoney MD - 03/15/2023 6:48 PM CDT Associated Problem(s): Esophageal varices (HCC) Grade 1 on follow-up EGD in Oct, 2022. Follow-up EGD recommended in 6 months though, potentially, this could be stretched out to a year. * Assessment & Plan Note - Romeo Mahoney MD - 03/15/2023 6:48 PM CDT Associated Problem(s): Alcoholic cirrhosis of liver without ascites (CMS/HCC) (HCC) Decompensated based on his history though markedly improved in the face of sustained alcohol abstinence. He understands the importance of maintaining sobriety. A return to heavy drinking will clearlylead to additional liver damage and decompensation. I ordered blood tests to assess hepatic synthetic function and an ultrasound to screen for hepatocellular carcinoma. These studies will be performed locally. He will return in 1 year or when clinically indicated. documented in this encounter Plan of Treatment Not on file documented as of this encounter Results * [id number], Tumor Marker (06/04/2023 2:01 PM FINISHER ACCORDION) alpha Fetoprotein 2.2 <=8.3 ng/mL [facility] Comment: Interpretive Data The Meagahn AFP assay procedure was used. Results from [...] et al. Clin Chem Lab Med 2018;57:783-797 Fide Gallardo et al. ??Clin Chem 2014;8333-4157. Current interpretive data was last revised 2022. Blood 06/04/2023 2:01 PM FINISHER ACCORDION 06/04/2023 2:31 PM FINISHER ACCORDION us Romeo Mahoney MD LAB BLOOD ORDERABLES F inal Result [facility] Department [place] [address] * (ABNORMAL) Protime-INR (06/04/2023 2:01 PM FINISHER ACCORDION) PT 16.1(H) 10.3 - 13.7 sec [facility] INR 1.41(H) 0.90 - 1.20 [facility] Comment: Interpretive data Oral anticoagulant therapeutic ranges: Venous thromboembolism prophylaxis or treatment: 2.0-3.0 CARDIOLOGY Standard range: 2.0-3.0 High-intensity range: 2.5-3.5 Refer to indication-specific guidelines for appropriate target ranges for prosthetic heart valve replacement. Current interpretive data was last revised on 2019. Blood 06/04/2023 2:01 PM FINISHER ACCORDION 06/04/2023 2:31 PM FINISHER ACCORDION Romeo Mahoney MD LAB BLOOD ORDERABLES F inal Result [facility] Department [place] [address] * (ABNORMAL) CBC without differential (06/04/2023 2:01 PM FINISHER ACCORDION) WBC 3.1(L) 3.8 - 9.9 K/cumm [facility] Hgb 13.4 13.0 - 17.5 g/dL [facility] Hct 38.2(L) 38.9 - 50.3 % [facility] Plt 69(L) 150 - 400 K/cumm [facility] MPV 10.0 9.1 - 12.3 fL [facility] RBC 4.09(L) 4.30 - 5.80 M/cumm [facility] MCV 93.4 81.3 - 96.4 fL [facility] MCH 32.8 27.1 - 33.3 pg [facility] MCHC 35.1 32.3 - 35.7 g/dL [facility] RDW CV 14.0 11.1 - 14.9 % [facility] RDW SD 47.5 35.7 - 48.1 fL [facility] NRBC abs 0.00 0.00 - 0.01 K/cumm [facility] Blood 06/04/2023 2:01 PM FINISHER ACCORDION 06/04/2023 2:31 PM FINISHER ACCORDION Romeo Mahoney MD LAB BLOOD ORDERABLES F inal Result [facility] [place] [address] * (ABNORMAL) Comprehensive metabolic panel (06/04/2023 2:01 PM FINISHER ACCORDION) Sodium 143 135 - 145 mmol/L [facility] Potassium, pl 4.0 3.3 - 4.9 mmol/L [facility] Chloride 110 97 - 110 mmol/L [facility] CO2 24 22 - 32 mmol/L [facility] Anion gap 9 2 - 15 mmol/L [facility] BUN 6 6 - 25 mg/dL [facility] Creatinine 0.72(L) 0.80 - 1.30 mg/dL [facility] Glucose 167 70 - 199 mg/dL [facility] Comment: Interpretive Data Fasting glucose >/= [...] classification and Diagnosis of Diabetes Diabetes Care 202; 46: S19-S40. Current interpretive data was last revised 2022. Calcium 8.4(L) 8.5 - 10.3 mg/dL [facility] Bilirubin, total 1.1 0.1 - 1.2 mg/dL [facility] Protein, pl 7.1 6.5 - 8.5 g/dL [facility] Albumin 3.8 3.5 - 5.0 g/dL [facility] Alk phos 136(H) 40 - 130 Units/L [facility] ALT 40 7 - 55 Units/L [facility] AST 64(H) 10 - 50 Units/L [facility] Blood 06/04/2023 2:01 PM FINISHER ACCORDION 06/04/2023 2:31 PM FINISHER ACCORDION Romeo Mahoney MD LAB BLOOD ORDERABLES F inal Result [facility] Department [place] [address] documented in this encounter Visit Diagnoses Diagnosis Alcoholic cirrhosis of liver without ascites (CMS/HCC) (HCC)- Primary 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) Hepatic encephalopathy (HCC) Hepatic encephalopathy Secondary esophageal varices without bleeding (CMS/HCC) (HCC) documented in this encounter Historical Medications * This list may reflect changes made after this encounter. busPIRone (BUSPAR) 10 mg tabletIndications :Generalized Anxiety Disorder Take 1 tablet (10 mg total) by mouth 3 (three) times a day acetaminophen (TYLENOL) 325 mg tablet Take 2 tablets (650 mg total) by mouth every 6 (six) hours as needed for pain buPROPion SR (WELLBUTRIN SR) 150 mg 12 hr tablet Take 1 tablet (150 mg total) by mouth 2 (two) times a day rifAXIMin (XIFAXAN) 550 mg tablet Take 1 tablet (550 mg total) by mouth 2 (two) times a day thiamine (VITAMIN B1) 100 mg tablet Take 1 tablet (100 mg total) by mouth daily amLODIPine (NORVASC) 5 mg tablet Take 1 tablet (5 mg total) by mouth daily meloxicam (MOBIC) 7.5 mg tablet Take 1 tablet (7.5 mg total) by mouth daily melatonin tablet Take by mouth nightly atorvastatin (LIPITOR) 40 mg tablet Take 1 tablet (40 mg total) by mouth daily aspirin 81 mg enteric coated tablet Take 1 tablet (81 mg total) by mouth daily QUEtiapine (SEROquel) 50 mg tablet Take 1 tablet (50 mg total) by mouth 2 (two) times a day added in this encounter Care Teams Timber Deadener Relationship Specialty Start Date End Date Michelle Delcid MD [address] [place] [address] PCP - General Family Medicine 04/27/22 documented as of this encounter
--- OUTSIDE RECORDS SUMMARY | 2024-06-27 04:53 | XMS_ITS | Encounter Summary ---
Author Organization [facility] Address [address] [address] Care Team Providers Care Mortician Supplies Sales Representative Name Role Phone Unavailable Primary Care Provider Unavailabl e Reason for Visit * Reason Comments Follow-up 6 month Alcoholic ci rrhosis, Alcohol dependence in remission, Hepatic encephalopathy, Secondary esophageal varices, RLS, Drug induced polyneuropathy Pt has been out of his medcation for the past couple months. Encounter Details Date Type Department Care Team (Latest Contact Info) Description 06/20/2021 1:30 PM SHEETER HELPER Office Visit [facility] [address] [place] [address] Emir Crawford MD [address] [place] [address] Alcoholic cirrhosis of liver with ascites (CMS/HCC) (HCC) (Primary Dx); 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); Hepatic encephalopathy (CMS/HCC) (HCC); Secondary esophageal varices without bleeding (CMS/HCC) (HCC); Restless leg syndrome; Drug-induced polyneuropathy (CMS/HCC) (HCC); BMI 26.0-26.9,adult; Benign prostatic hyperplasia with incomplete bladder emptying Social History Tobacco Use Types Packs/Day Years [...] Sign Reading Time Taken Comments Blood Pressure 146/96 06/20/2021 1:38 PM SHEETER HELPER Pulse 104 06/20/2021 1:38 PM SHEETER HELPER Temperature 36.1 ??C (96.9 ??F) 06/20/2021 1:38 PM CS T Respiratory Rate - - Oxygen Saturation 98% 06/20/2021 1:38 PM SHEETER HELPER Inhaled Oxygen Concentration - - Weight 83.6 kg (184 lb 6.4 oz) 06/20/2021 1:38 P M SHEETER HELPER Height 182.9 cm (6') 06/20/2021 1:38 PM SHEETER HELPER Body Mass Index 25.01 06/20/2021 1:38 PM SHEETER HELPER documented in this encounter Ordered Prescriptions Prescription Sig Dispense Quantity Refills Last Filled Start Date End Date tamsulosin (FLOMAX) 0.4 mg extended release capsuleIndications :Benign prostatic hyperplasia with incomplete bladder emptying Take 1 capsule (0.4 mg total) by mouth daily 30 capsule 5 06/20/2021 documented in this encounter Progress Notes * Emir Crawford MD - 06/20/2021 1:30 PM CST Images from the original note were not included. Subjective/Objective Patient ID: Chester Dubose Jr. is a 51 y.o. male. Assessment/Plan Diagnoses and all orders for this visit: Alcoholic cirrhosis of liver with ascites (CMS/HCC) (HCC) (Primary) Assessment & Plan: Stable. Follows with Dr. Nagy. Continue Xifaxan 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) Assessment & Plan: Currently remains sober. Has not drank since December of 2019 Hepatic encephalopathy (CMS/HCC) (HCC) Assessment & Plan: Stable on Xifaxan Secondary esophageal varices without bleeding (CMS/HCC) (HCC) Assessment & Plan: Status post banding. Followed by Dr. Nagy Restless leg syndrome Assessment & Plan: Stable on pramipexole Drug-induced polyneuropathy (CMS/HCC) (HCC) Assessment & Plan: Stable on gabapentin BMI 26.0-26.9,adult Benign prostatic hyperplasia with incomplete bladder emptying Assessment & Plan: Continue tamsulosin Orders: - tamsulosin (FLOMAX) 0.4 mg extended release capsule; Take 1 capsule (0.4 mg total) by mouth daily Chief Complaint Follow-up for chronic conditions. HPI: Chester is here for a six-month follow-up for Alcoholic cirrhosis, Alcohol dependence in remission, Hepatic encephalopathy, Secondary esophageal varices, RLS, and Drug induced polyneuropathy Pt has been out of his medcation for the past couple months. He has no complaints today. Current Outpatient Medications Medication Sig Dispense Refill ??? folic acid (FOLVITE) 1 mg tablet Take 1 tablet (1 mg total) by mouth daily 90 tablet 0 ??? gabapentin (NEURONTIN) 100 mg capsule TAKE 1 CAPSULE BY MOUTH NIGHTLY 90 capsule 0 ??? lactulose 0.67 gram/mL solution Take 30 mL (20 g total) by mouth 3 (three) times a day 2700 mL 11 ??? multivitamin capsule Take 1 capsule by mouth daily ??? pramipexole (MIRAPEX) 0.25 mg tablet Take 1 tablet (0.25 mg total) by mouth nightly ??? Xifaxan 550 mg tablet Take 1 tablet (550 mg total) by mouth 2 (two) times a day 60 tablet 11 ??? tamsulosin (FLOMAX) 0.4 mg extended release capsule Take 1 capsule (0.4 mg total) by mouth daily 30 capsule 5 No current facility-administered medications for this visit. [...] the past 1008 hour(s)). Physical Exam: BP 146/96 (BP Location: Left arm, Patient Position: Sitting) Pulse 104 Temp 36.1 ??C (96.9 ??F)(Skin) Ht 182.9 cm (6') Wt 83.6 kg (184 lb 6.4 oz) SpO2 98% BMI 25.01 kg/m?? Physical Exam Constitutional: Appearance: He is [...] person, place, and time. Emir Crawford MD TER HELPER documented in this encounter Miscellaneous Notes * Assessment & Plan Note - Emir Crawford MD - 06/20/2021 1:56 PM SHEETER HELPER Associated Problem(s): Benign prostatic hyperplasia with incomplete bladder emptying Continue tamsulosin TER HELPER * Assessment & Plan Note - Emir Crawford MD - 06/09/2021 8:05 AM SHEETER HELPER Associated Problem(s): Drug-induced polyneuropathy (HCC) Stable on gabapentin TER HELPER * Assessment & Plan Note - Emir Crawford MD - 06/09/2021 8:05 AM SHEETER HELPER Associated Problem(s): Restless leg syndrome Stable on pramipexole TER HELPER * Assessment & Plan Note - Emir Crawford MD - 06/09/2021 8:04 AM SHEETER HELPER Associated Problem(s): Esophageal varices (HCC) Status post banding. Followed by Dr. Nagy TER HELPER * Assessment & Plan Note - Emir Crawford MD - 06/09/2021 8:04 AM SHEETER HELPER Associated Problem(s): Hepatic encephalopathy (HCC) Stable on Xifaxan TER HELPER TER HELPER * Assessment & Plan Note - Emir Crawford MD - 06/09/2021 8:03 AM SHEETER HELPER Associated Problem(s): 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) Currently remains sober. Has not drank since December of 2019 TER HELPER * Assessment & Plan Note - Emir Crawford MD - 06/09/2021 8:01 AM SHEETER HELPER Associated Problem(s): Alcoholic cirrhosis of liver without ascites (CMS/HCC) (HCC) Stable. Follows with Dr. Nagy. 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 BMI 26.0-26.9,adult Benign prostatic hyperplasia with incomplete bladder emptying documented in this encounter Discontinued Medications Medication Sig Discontinue Reason Start Date End Da te acetaminophen 500 mg capsule Take 1 capsule (500 mg total) by mouth every 6 (six) hours as needed for pain Therapy completed 02/25/2019 06/20/2021 famotidine (PEPCID) 20 mg tablet Take 1 tablet (20 mg total) by mouth 2 (two) times a day Therapy completed 01/26/2021 06/20/2021 tamsulosin (FLOMAX) 0.4 mg extended release capsule TAKE 1 CAPSULE BY MOUTH DAILY Therapy completed 12/09/2020 06/20/2021 phenazopyridine (PYRIDIUM) 100 mg tabletIndications:Dysur ia Take 1 tablet (100 mg total) by mouth 3 (three) times a day as needed for urinary pain Therapy completed 03/20/2021 06/20/2021 ondansetron (ZOFRAN) 4 mg tabletIndications:Nause a and Vomiting Take 1 tablet (4 mg total) by mouth every 6 (six) hours as needed for nausea or vomiting Therapy completed 03/20/2021 06/20/2021 hydrOXYzine (ATARAX) 25 mg tabletIndications:Prima ry insomnia TAKE 1-2 TABLETS BY MOUTH BEFORE NIGHT TIME Therapy completed 12/09/2020 06/20/2021 documented as of this encounter
--- OUTSIDE RECORDS SUMMARY | 2024-06-27 04:53 | XMS_ITS | Encounter Summary ---
Author Organization [facility] Medical Group Address [address] [place] [address] Care Team Providers Care Fill Plant Operator Name Role Phone Unavailable Primary Care Provider Unavailabl e Encounter Details Date Type Department Care Team ([facility] st Contact Info) Description 08/24/2021 Telephone [facility] Accountable Care Organization [address] [place] [address] Tara Chand, RN [address] [facility] [address] [address] Social History Tobacco Use Types Packs/Day Years [...] encounter Miscellaneous Notes * Telephone Encounter - Tara Chand RN - 08/30/2021 2:41 PM CDT [facility]- called Ronda at [facility] for an update - and unable to reach her- pt is still on Essence log in ICU at [facility]- Tara Chand RN, BSN [facility] Veterinary Technology Instructor for High Risk [phone] * Telephone Encounter - Tara Chand RN - 08/25/2021 1:25 PM CST [facility]- to [facility]- emergent tx 08/24/21-pt intubated- per [facility] notes: unstable vital signs acute cerebrovascular accident (CVA) 4.8 cm intraparenchymal hematoma left parietooccipital lobe with surrounding edema and effacement of posterior aspect left lateral ventricle. No midline shift. Has a sister- Tara Chand RN, CHRYSTAL [facility] Veterinary Technology Instructor for High Risk [phone] T FOLDER * Telephone Encounter - Tara Chand RN - 08/24/2021 2:50 PM CST [facility]- ER 08/24/21- BME- w/u cont- per [facility] notes: EMS for suicide attempt. Per EMS, they were called by pt's sister who stated that pt ate a bottle of meth . Per EMS, pt's blood pressure was 150/92 and his rate rate was 90 bpm upon their arrival. Pt reports he recently got fired from his job and he states I lost my home and everything else . Pt claims he has been very depressed lately. He states he took about 1 gram of meth in an attempt to end his life. Pt reports he quit drinking. Pt denies any chest pain, shortness of breath, headache, orany other associated symptoms Will f/u as to er determination- Tara Chand RN, MACIELN [facility] Veterinary Technology Instructor for High Risk [phone] T FOLDER documented in this encounter Plan of Treatment Not on file documented as of this encounter Visit Diagnoses Not on filedocumented in this encounter
--- OUTSIDE RECORDS SUMMARY | 2024-06-27 04:53 | XMS_ITS | Encounter Summary ---
Author Organization [facility] Address [address] [place] [address] Care Team Providers Care Jelly Filter Tender Name Role Phone Referring, Unknown MD Primary Care Provider Unav ailable Reason for Referral * Diagnostic Imaging (Routine) - Closed Specialty Diagnoses / Procedures Referred By Contac t Referred To Contact Diagnoses Alcoholic cirrhosis of liver with ascites (CMS/HCC) (HCC) Procedures US Abdomen Limited Romeo Mahoney MD [address] [place] [address] Phone: tel: fax: [address] [phone] Referral ID Status Reason Start Date Expiration Date Visits Re quested Visits Authorized [id number] Closed 03/02/2022 04/01/2023 1 1 Reason for Visit * Diagnostic Imaging (Routine) - Closed Specialty Diagnoses / Procedures Referred By Contac t Referred To Contact Diagnoses Alcoholic cirrhosis of liver with ascites (CMS/HCC) (HCC) Procedures US Abdomen Limited Romeo Mahoney MD [address] [place] [address] Phone: tel: fax: [address] [phone] Referral ID Status Reason Start Date Expiration Date Visits Re quested Visits Authorized [id number] Closed 03/02/2022 04/01/2023 1 1 Encounter Details Date Type Department Care Team (Latest Contact Info) Description 03/31/2022 10:44 AM CDT - 03/31/2022 11:59 PM CDT Hospital Encounter [facility] [address] [place] [address] Romeo Mahoney MD [address] [place] [address] Alcoholic cirrhosis of liver with ascites (CMS/HCC) (HCC) Discharge Disposition: Discharge to home or self [...] on file documented as of this encounter Medications at Time of Discharge multivitamin capsule Take 1 capsule by mouth daily pramipexole (MIRAPEX) 0.25 mg tablet Take 1 tablet (0.25 mg total) by mouth nightly 90 tablet 1 07/04/2021 tamsulosin (FLOMAX) 0.4 mg extended release capsuleIndications :Benign prostatic hyperplasia with incomplete bladder emptying Take 1 capsule (0.4 mg total) by mouth daily 30 capsule 5 06/20/2021 documented as of this encounter Discharge Disposition Disposition Code Departure Means Destination Discharge to home or self care documented in this encounter Plan of Treatment Not on file documented as of this encounter Procedures Procedure Name Priority Date/Time Associated Diagnosis Comments US ABDOMEN LIMITED Schedule Routine, Read Routine (OP Routine) 03/31/2022 11:34 AM CDT Alcoholic cirrhosis of liver with ascites (CMS/HCC) (HCC) documented in this encounter Results * US Abdomen Limited [...] ascites (CMS/HCC) (HCC) documented in this encounter Care Teams Jelly Filter Tender Relationship Specialty Start Date End Date Referring, Unknown, MD PCP - General Pediatrics 03/19/22 04/26/22 documented as of this encounter
--- OUTSIDE RECORDS SUMMARY | 2024-06-27 04:53 | XMS_ITS | Encounter Summary ---
Author Organization [facility] Medical Group Address [address] [place] [address] Care Team Providers Care Retail Asset Protection Specialist Name Role Phone Unavailable Primary Care Provider Unavailabl e Reason for Visit * Reason Comments Pain Lower extremities, r estless legs getting worse Encounter Details Date Type Department Care Team (Late st Contact Info) Description 11/09/2020 2:00 PM CDT Office Visit [facility] Primary Care [address] [place] [phone] Aileen Olmstead PA [address] [place] [address] Restless leg syndrome (Primary Dx) Social History Tobacco Use Types [...] Sign Reading Time Taken Comments Blood Pressure 120/80 11/09/2020 2:09 PM CDT Pulse 72 11/09/2020 2:09 PM CDT Temperature 35.7 ??C (96.2 ??F) 11/09/2020 2:09 PM CD T Respiratory Rate 16 11/09/2020 2:09 PM CDT Oxygen Saturation 97% 11/09/2020 2:09 PM CDT Inhaled Oxygen Concentration - - Weight 89.7 kg (197 lb 11.2 oz) 11/09/2020 2:09 PM CDT Height 182.9 cm (6') 11/09/2020 2:09 PM CDT Body Mass Index 26.81 11/09/2020 2:09 PM CDT documented in this encounter Ordered Prescriptions Prescription Sig Dispense Quantity Refills Last Filled Start Date End Date pramipexole (MIRAPEX) 0.125 mg tabletIndications: Restless Legs Syndrome Take 1 tablet (0.125 mg total) by mouth nightly 30 tablet 3 11/09/2020 documented in this encounter Progress Notes * Aileen Olmstead PA - 11/09/2020 2:00 PM CDT Images from the original note were not included. Subjective/Objective Patient ID: Chester Dubose Jr. is a 50 y.o. male. Assessment/Plan Diagnoses and all orders for this visit: Restless leg syndrome (Primary) Assessment & Plan: Not controlled with gapapentine alone. On it for polyneuropathy and it worked for RLS also. Will try additional treatment. If not better in 2 weeks, call back to increase dose. Orders: - pramipexole (MIRAPEX) 0.125 mg tablet; Take 1 tablet (0.125 mg total) by mouth nightly No notes on file LABS Patient Active Problem List Diagnosis Date Noted ??? Bilateral carpal tunnel syndrome 09/07/2020 ??? Primary insomnia 09/07/2020 ??? Restless leg syndrome 06/08/2020 ??? Drug-induced polyneuropathy (CMS/HCC) 06/08/2020 ??? Chronic right shoulder pain 05/27/2020 ??? Esophageal varices (CMS/HCC) 05/25/2020 ??? History of hepatitis C virus infection 05/25/2020 ??? Hepatic encephalopathy (CMS/HCC) 04/08/2020 ??? Primary osteoarthritis involving multiple joints 04/02/2019 ??? COPD (chronic obstructive pulmonary disease) (CMS/HCC) 03/04/2019 ??? Anxiety 03/04/2019 ??? Alcoholic cirrhosis of liver with ascites (CMS/HCC) 02/21/2019 ??? Polysubstance abuse (CMS/HCC) 02/21/2019 ??? Positive hepatitis C antibody test 02/21/2019 ??? Hypertension 02/20/2019 ??? Alcohol dependence in remission (CMS/HCC) 10/09/2018 Chief Complaint Chief Complaint Patient presents with ??? Pain Lower extremities, restless legs getting worse HPI Patient is here to address uncontrolled restless leg syndrome. Had it most of his life, getting worse x2 months. Patient is on gabapentin for peripheral neuropathy and that usually helped restless legs. It does not help now. Restless legs affect his sleep. He denied pedal edema. Review of Systems All other systems reviewed and are negative. Vitals BP 120/80 (BP Location: Right arm, Patient Position: Sitting) Pulse 72 Temp (!) 35.7 ??C (96.2 ??F) (Transdermal) Resp 16 Ht 182.9 cm (6') Wt 89.7 kg (197 lb 11.2 oz) SpO2 97% BMI 26.81 kg/m?? Current Outpatient Medications Medication Sig Dispense Refill [...] 0 ??? gabapentin (NEURONTIN) 100 mg capsule Take 1 capsule (100 mg total) by mouth nightly 90 capsule0 ??? hydrOXYzine (ATARAX) 25 mg tablet TAKE 1-2 TABLETS BY MOUTH BEFORE NIGHT TIME 60 tablet 0 ??? lactulose 0.67 gram/mL solution Take 30 mL (20 g total) by mouth 3 (three) times a day 2700 mL 11 ??? multivitamin capsule Take 1 capsule by mouth daily ??? tamsulosin (FLOMAX) 0.4 mg extended release capsule Take 1 capsule (0.4 mg total) by mouth daily 90 capsule 0 ??? Xifaxan 550 mg tablet Take 1 tablet (550 mg total) by mouth 2 (two) times a day 60 tablet 11 ??? pramipexole (MIRAPEX) 0.125 mg tablet Take 1 tablet (0.125 mg total) by mouth nightly 30 tablet3 No current facility-administered medications for this visit. Physical Exam Constitutional: Appearance: He is well-developed. HENT: Head: Normocephalic and atraumatic. Cardiovascular: Rate and Rhythm: Normal rate and regular rhythm. Heart sounds: No murmur heard. Pulmonary: Effort: Pulmonary effort is normal. Breath sounds: Normal breath sounds. Abdominal: General: Bowel sounds are normal. Palpations: Abdomen is soft. Tenderness: There is no abdominal tenderness. Skin: General: Skin is warm and dry. Findings: No rash. Neurological: Mental Status: He is alert and oriented to person, place, and time. documented in this encounter Miscellaneous Notes * Assessment & Plan Note - Aileen Olmstead PA - 11/09/2020 2:20 PM CDT Associated Problem(s): Restless leg syndrome Not controlled with gapapentine alone. On it for polyneuropathy and it worked for RLS also. Will try additional treatment. If not better in 2 weeks, call back to increase dose. 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
--- OUTSIDE RECORDS SUMMARY | 2024-06-27 04:53 | XMS_ITS | Encounter Summary ---
Author Organization [facility] Healthcare Address [address] [place] [address] Care Team Providers Care Syrup Shed Supervisor Name Role Phone Michelle Delcid MD Primary Care Provider [phone] Reason for Visit * Auth/Cert (Routine) Specialty Diagnoses / Procedures Referred By Hoang leroy Referred To Contact Diagnoses Idiopathic esophageal varices without bleeding (CMS/HCC) (HCC) Idiopathic esophageal varices without bleeding (CMS/HCC) (HCC) [I85.00] Procedures FL ESOPHAGOGASTRODUODENOSCOPY TRANSORAL DIAGNOSTIC ESOPHAGOGASTRODUODENOSCOPY Referral ID Status Reason Start Date Expiration Date Visits Re quested Visits Authorized [id number] 1 1 Encounter Details Date Type Department Care Team ([facility] st Contact Info) Description 06/04/2023 4:15 PM BLOW MOLD MACHINE OPERATOR Lab [facility] ([facility]) [address] [place] [phone] Alcoholic cirrhosis of liver without ascites (CMS/HCC) (HCC) Social History Tobacco Use Types [...] as of this encounter Plan of Treatment Not on file documented as of this encounter Procedures Procedure Name Priority Date/Time Associated Diagnosis Comments EGFR Routine 06/04/2023 2:01 PM BLOW MOLD MACHINE OPERATOR Alcoholic cirrhosis of liver without ascites (CMS/HCC) (HCC) [id number], TUMOR MARKER Routine 06/04/2023 2:01 PM BLOW MOLD MACHINE OPERATOR Alcoholic cirrhosis of liver without ascites (CMS/HCC) (HCC) PROTIME-INR Routine 06/04/2023 2:01 PM BLOW MOLD MACHINE OPERATOR Alcoholic cirrhosis of liver without ascites (CMS/HCC) (HCC) CBC WITHOUT DIFFERENTIAL Routine 06/04/2023 2:01 PM BLOW MOLD MACHINE OPERATOR Alcoholic cirrhosis of liver without ascites (CMS/HCC) (HCC) COMPREHENSIVE METABOLIC PANEL Routine 06/04/2023 2:01 PM BLOW MOLD MACHINE OPERATOR Alcoholic cirrhosis of liver without ascites (CMS/HCC) (HCC) documented in this encounter Results * eGFR (06/04/2023 2:01 PM BLOW MOLD MACHINE OPERATOR) eGFR >90 >=60 mL/min/1. 73 m2 [facility] Comment: Interpretive Data Reference Interval Normal ?>/= 90 mL/min/1.73m2 Mildly decreased* ? 60 - 89 mL/min/1.73m2 Mildly to moderately decreased ?45 - 59 mL/min/1.73m2 Moderately to severely decreased ??30 - 44 mL/min/1.73m2 Severely decreased ?15 - 29 mL/min/1.73m2 Kidney Failure ?< 15 ??mL/min/1.73m2 *Relative to young adult level Estimated glomerular filtration rate is determined by the 2020 CKD-EPI equation recommended by the National Kidney Foundation (A Unifying Approach to GFR Estimation: Recommendations of the NKF-ASK Task Force on Reassessing the Inclusion of Race in Diagnosing Kidney Disease, JASN 2020). The CKD-EPI equation should not be used for patients with unstable renal function and has not been validated in children and those over 70. Current interpretive data was last reviewed 2021. Blood 06/04/2023 2:01 PM BLOW MOLD MACHINE OPERATOR 06/04/2023 2:36 PM BLOW MOLD MACHINE OPERATOR Romeo Mahoney MD LAB BLOOD ORDERABLES F inal Result [facility] [place] [address] * (ABNORMAL) Comprehensive metabolic panel (06/04/2023 2:01 PM BLOW MOLD MACHINE OPERATOR) Sodium 143 135 - 145 mmol/L [facility] Potassium, pl 4.0 3.3 - 4.9 mmol/L [facility] Chloride 110 97 - 110 mmol/L [facility] CO2 24 22 - 32 mmol/L [facility] Anion gap 9 2 - 15 mmol/L [facility] BUN 6 6 - 25 mg/dL [facility] Creatinine 0.72(L) 0.80 - 1.30 mg/dL [facility] Glucose 167 70 - 199 mg/dL [facility] Comment: Interpretive Data Fasting glucose >/= [...] classification and Diagnosis of Diabetes Diabetes Care 2021; 46: S19-S40. Current interpretive data was last revised 2022. Calcium 8.4(L) 8.5 - 10.3 mg/dL [facility] Bilirubin, total 1.1 0.1 - 1.2 mg/dL [facility] Protein, pl 7.1 6.5 - 8.5 g/dL [facility] Albumin 3.8 3.5 - 5.0 g/dL [facility] Alk phos 136(H) 40 - 130 Units/L [facility] ALT 40 7 - 55 Units/L [facility] AST 64(H) 10 - 50 Units/L [facility] Blood 06/04/2023 2:01 PM BLOW MOLD MACHINE OPERATOR 06/04/2023 2:31 PM BLOW MOLD MACHINE OPERATOR Romeo Mahoney MD LAB BLOOD ORDERABLES F inal Result [facility] [place] [address] * (ABNORMAL) CBC without differential (06/04/2023 2:01 PM BLOW MOLD MACHINE OPERATOR) WBC 3.1(L) 3.8 - 9.9 K/cumm [facility] Hgb 13.4 13.0 - 17.5 g/dL [facility] Hct 38.2(L) 38.9 - 50.3 % [facility] Plt 69(L) 150 - 400 K/cumm [facility] MPV 10.0 9.1 - 12.3 fL [facility] RBC 4.09(L) 4.30 - 5.80 M/cumm [facility] MCV 93.4 81.3 - 96.4 fL [facility] MCH 32.8 27.1 - 33.3 pg [facility] MCHC 35.1 32.3 - 35.7 g/dL [facility] RDW CV 14.0 11.1 - 14.9 % [facility] RDW SD 47.5 35.7 - 48.1 fL [facility] NRBC abs 0.00 0.00 - 0.01 K/cumm [facility] Blood 06/04/2023 2:01 PM BLOW MOLD MACHINE OPERATOR 06/04/2023 2:31 PM BLOW MOLD MACHINE OPERATOR Romeo Mahoney MD LAB BLOOD ORDERABLES F inal Result Performing Organization Address [facility] Co de Phone Number [facility] Department [place] [address] * (ABNORMAL) Protime-INR (06/04/2023 2:01 PM BLOW MOLD MACHINE OPERATOR) Pathologist [facility] PT 16.1(H) 10.3 - 13.7 sec [facility] INR 1.41(H) 0.90 - 1.20 [facility] Comment: Interpretive data Oral anticoagulant therapeutic ranges: Venous thromboembolism prophylaxis or treatment: 2.0-3.0 CARDIOLOGY Standard range: 2.0-3.0 High-intensity range: 2.5-3.5 Refer to indication-specific guidelines for appropriate target ranges for prosthetic heart valve replacement. Current interpretive data was last revised on 2019. Blood 06/04/2023 2:01 PM BLOW MOLD MACHINE OPERATOR 06/04/2023 2:31 PM BLOW MOLD MACHINE OPERATOR Romeo Mahoney MD LAB BLOOD ORDERABLES F inal Result Performing Organization Address [facility] Co de Phone Number [facility] Department [place] [address] * [id number], Tumor Marker (06/04/2023 2:01 PM BLOW MOLD MACHINE OPERATOR) Pathologist [facility] alpha Fetoprotein 2.2 <=8.3 ng/mL [facility] Comment: Interpretive Data The Meaghan AFP assay [...] et al. ??J. Ped Surg 1978;13:155-156 Amaya Luke. et al. Clin Chem Lab Med 2018;57:783-797 Fide V. et al. ??Clin Chem 2014;3831-4056. Current interpretive data was last revised 2022. Blood 06/04/2023 2:01 PM BLOW MOLD MACHINE OPERATOR 06/04/2023 2:31 PM BLOW MOLD MACHINE OPERATOR Romeo Mahoney MD LAB BLOOD ORDERABLES F inal Result [facility] Department [place] [address] documented in this encounter Visit Diagnoses Diagnosis Alcoholic cirrhosis of liver without ascites (CMS/HCC) (HCC) documented in this encounter Care Teams Syrup Shed Supervisor Relationship Specialty Start Date End Date Michelle Delcid MD [address] [place] [id number] PCP - General Family Medicine 04/27/22 documented as of this encounter
--- OUTSIDE RECORDS SUMMARY | 2024-06-27 04:53 | XMS_ITS | Encounter Summary ---
Author Organization [facility] Address [address] [place] [address] Phone Care Team Providers Care Jet Blade Polisher Name Role Phone Unavailable Primary Care Provider Unavailabl e Reason for Visit * Reason Onset Date Comments Imaging 07/21/2021 Encounter Details Date Type Department Care Team (Late st Contact Info) Description 07/21/2021 Telephone [facility] G[facility] Counts include [facility] beds at the [facility] 8th [place] [address] [place] [address] Henrietta Thomas Imaging Social History Tobacco Use Types Packs/Day Years [...] * Telephone Encounter - Henrietta Thomas - 07/21/2021 12:12 PM CST Task creatd to arrange imaging in September. ----- Message from Romeo Mahoney MD sent at 07/21/2021 11:37 AM MANAGER PROCESS ----- Regarding: RE: ultrasound of liver in Jul Definitely.. ----- Message ----- From: Henrietta Thomas Sent: 07/21/2021 10:32 AM MANAGER PROCESS To: Romeo Mahoney MD Subject: FW: ultrasound of liver in Jul He Just had a CT scan in March, to move liver US out to September for HCC screen? ----- Message ----- From: Bibi Greene RN Sent: 07/19/2021 12:00 AM MANAGER PROCESS To: Nayan Mahoney/Balbir Holley Subject: ultrasound of liver in Jul [facility] patient needs an ultrasound of the liver in jul. HCC screen. GER PROCESS GER PROCESS documented in this encounter Plan of Treatment Not on file documented as of this encounter Visit Diagnoses Not on filedocumented in this encounter
--- OUTSIDE RECORDS SUMMARY | 2024-06-27 04:53 | XMS_ITS | Encounter Summary ---
Author Organization [facility] Healthcare Address [address] [place] [address] Care Team Providers Care Ham Marker Name Role Phone Unavailable Primary Care Provider Unavailabl e Reason for Referral * Diagnostic Imaging (Routine) - Closed Specialty Diagnoses / Procedures Referred By Contac t Referred To Contact Diagnoses SOB (shortness of breath) Generalized abdominal discomfort Procedures US Abdomen Limited Romeo Mahoney MD [id number] [place] [address] Phone: tel: fax: [address] [address] Referral ID Status Reason Start Date Expiration Date Visits Re quested Visits Authorized [id number] Closed 09/28/2020 10/28/2021 1 1 Encounter Details Date Type Department Care Team (Late st Contact Info) Description 10/07/2020 11:59 AM CDT Hospital Encounter [facility] INTERIM Romeo Mahoney MD [id number] [place] [address] SOB (shortness of breath); Generalized abdominal discomfort Social History Tobacco Use Types Packs/Day Years [...] 2 (two) times a day 180 tablet 09/16/2020 1 folic acid (FOLVITE) 1 mg tabletIndications:Al coholic cirrhosis of liver with ascites (CMS/HCC) (HCC) Take 1 tablet (1 mg total) by mouth daily 90 tablet 09/16/2020 2 gabapentin (NEURONTIN) 100 mg capsuleIndications:D rug-induced polyneuropathy (HCC),Restless leg syndrome Take 1 capsule (100 mg total) by mouth nightly 90 capsule 09/16/2020 1 hydrOXYzine (ATARAX) 25 mg tabletIndications:an xiety 1-2 tabs before night time 90 tablet 10/07/2020 1 lactulose 0.67 gram/mL solutionIndications: Hepatic encephalopathy (HCC) Take 30 mL (20 g total) by mouth 3 (three) times a day 2700 mL 11 09/17/2020 2 tamsulosin (FLOMAX) 0.4 mg extended release capsule Take 1 capsule (0.4 mg total) by mouth daily 90 capsule 09/16/2020 documented as of this encounter Plan of Treatment Not on file documented as of this encounter Procedures Procedure Name Priority Date/Time Associated Diagnosis Comments US ABDOMEN LIMITED Schedule Routine, Read Routine (OP Routine) 10/07/2020 12:02 PM CDT SOB (shortness of breath) Generalized abdominal discomfort documented in this encounter Results * US Abdomen Limited (10/07/2020 12:02 PM CDT) Anatomical Region Laterality Modality Abdomen N/A Ultrasound 10/07/2020 12:2 1 PM CDT Narrative 10/07/2020 12:23 PM CDT Patient Name: CHESTER BRUMFIELD JR ?Ordering Dr: Romeo Mahoney MD ?? D.O.B: 1970 ? Exam Date: 10/07/20 ?? 1202 ?? Age: 50 ?Sex: Male ? MR#: [id number] ?? Loc: ? RADIOLOGY REPORT ?? Order #[id number] ?? Ultrasound ? US Abdomen/Lmt Exam Spec [...] 12:23 PM ?? T: ? Report ID: [id number] ?? Reading Location: ??[id number] ? REPORT ELECTRONICALLY SIGNED IN OTHER VENDOR SYSTEM ?? Resulting Agency Comment O Procedure Note Javier Wilkes MD - 10/07/2020 Patient Name: OCTAVIANOCHESTERDIRK Chowdhury Dr: Romeo Mahoney MD D.O.B: 1970 Exam Date: 10/07/20 1202 Age: 50 Sex: Male [facility]#: [id number] [id number] Order #[id number] Ultrasound US Abdomen/Lmt Exam Spec Organ Signed [...] Javier Wilkes M.D. AB T: Report ID: [id number] Reading Location: [id number] REPORT ELECTRONICALLY SIGNED IN OTHER VENDOR SYSTEM us Romeo Mahoney MD IMG US PROCEDURES Jasmin l Result documented in this encounter Visit Diagnoses Diagnosis SOB (shortness of breath) Shortness of breath Generalized abdominal discomfort documented in this encounter Additional Health Concerns Infection Onset Date Last Indicated Resolved Time 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
--- OUTSIDE RECORDS SUMMARY | 2024-06-27 04:53 | XMS_ITS | Encounter Summary ---
Author Organization [facility] Address [address] [place] [address] Phone Care Team Providers Care Administrative Judge Name Role Phone Michelle Delcid MD Primary Care Provider [phone]- [phone] Reason for Visit * Reason Onset Date Comments GI Preprocedure 10/03/2022 Encounter Details Date Type Department Care Team (Late st Contact Info) Description 10/03/2022 Telephone [facility] Gastroenterology [address] [place] [address] Medical Office Building [address], [address] [place] [address] May Shrestha RN GI Preprocedure [...] Telephone Encounter - May Shrestha RN - 10/03/2022 1:27 PM CDT PROCEDURE Type: EGD Indication: repeat EGD in 6 months, variceal screening Referring Physician: Dr Mahoney Date Referred: CLINICAL ASSESSMENT [x] Clinical assessment obtained via phone call with patient 10/03/22 [x]COVID Screening questions [x] Covid vaccination yes []BMI>45, Weight >350 lbs (if yes, note restrictions below) BMI Readings from Last 1 Encounters: 05/04/22 28.48 kg/m?? Wt Readings from Last 1 Encounters: 05/04/22 95.3 kg (210 lb) [] Patient had GI procedure/CPAP clinic/GI clinic <30 days (if Yes, no medical screening questions needed unless new clinical issues in last 30 days) Medical screening questions: BMI/Weight: NA CARDIOVASCULAR: None RESPIRATORY/LUNG: None RENAL/LIVER/GI: Cirrhosis- If therapeutic procedure (other than EGD for varices) or if colonoscopy,need recent plt>50 and fibrinogen >120. Otherwise escalate to physician to consider cryoprecipiate or DIANNA BLEEDING/CLOTTING: None NEUROLOGICAL: Stroke- If within 1 month escalate to GI physician to consider CPAP referral/continuing blood thinner/reschedule. No SC if within past year or pt can't consent 08/2021 ENDOCRINE: None PRIOR PROCEDURE ISSUES: None AUTOMOBILE UPHOLSTERY TRIM INSTALLER/: NA IMPLANTS.: None Notes: DIABETIC MEDS Y/N: [...] [] Location limitations: Scheduling Scheduling location limitations: Mattress Filling Machine Tender needed [x] NA Language: POA [] NA Name: Sarah Dubose / Kimberley ([place] staff) SPECIAL PROCEDURE INSTRUCTIONS Scheduling Notes Procedure information Date of procedure: 10/18/2022 Time of procedure: 1030 Arrival time: 0930 Location: [facility] Proceduralist: Ismail Instructions Method of instructions: Mailed copy and Verbal [x]Confirmation of ride/community outreach coordinator [x]Post anesthesia restrictions given [x]NPO Instructions: [x]Diet Instructions: [x]Take non-blood thinner prescription meds that morning [x]Bring med list, photo ID, insurance card, no valuables [x]Bring COVID vaccination card (if vaccinated) Bowel Prep Prep prescribed: NA Method of Bowel Prep (RX): NA ----- Message from May Shrestha RN sent at 05/08/2022 1:49 PM RESPOOLER ----- Regarding: EGD/Ismail lease call patient and notify biopsy results being benign. No H pylori noted, repeat EGD in 6 months documented in this encounter Plan of Treatment Not on file documented as of this encounter Visit Diagnoses Diagnosis Esophageal varices without bleeding, unspecified esophageal varices type (HCC)- Primary Hepatic cirrhosis, unspecified hepatic cirrhosis type, unspecified whether ascites present (HCC) Alcoholic cirrhosis of liver without ascites (CMS/HCC) (HCC) documented in this encounter Orders Case Request Count Last Ordered Date First Orde red Date CASE REQUEST GI 1 10/03/2022 documented in this encounter Care Teams Administrative Judge Relationship Specialty Start Date End Date Michelle Delcid MD [address] [place] [id number] PCP - General Family Medicine 04/27/22 documented as of this encounter
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
--- OUTSIDE RECORDS SUMMARY | 2024-06-27 04:53 | XMS_ITS | Encounter Summary ---
Author Organization [facility] Healthcare Address [address] [place] [address] Care Team Providers Care Solderer Dipper Name Role Phone Michelle Delcid MD Primary Care Provider [phone]- [phone] Reason for Visit * Auth/Cert (Routine) Specialty Diagnoses / Procedures Referred By Hoang leroy Referred To Contact Diagnoses Idiopathic esophageal varices without bleeding (CMS/HCC) (HCC) Idiopathic esophageal varices without bleeding (CMS/HCC) (HCC) [I85.00] Procedures [place] ESOPHAGOGASTRODUODENOSCOPY TRANSORAL DIAGNOSTIC ESOPHAGOGASTRODUODENOSCOPY Referral ID Status Reason Start Date Expiration Date Visits Re quested Visits Authorized [id number] 1 1 Encounter Details Date Type Department Care Team (Latest Contact Info) Description 06/04/2023 10:42 AM OUTBOARD MOTOR MECHANIC - 06/04/2023 2:10 PM [facility] Hospital Encounter [facility] [address] [facility] [address] [place] [address] Melody Lilly MD [address] [facility] [address] [place] [address] Discharge Disposition: Discharge to home or self [...] Sign Reading Time Taken Comments Blood Pressure 129/102 06/04/2023 1:30 PM OUTBOARD MOTOR MECHANIC Pulse 73 06/04/2023 1:30 PM OUTBOARD MOTOR MECHANIC Temperature 36 ??C (96.8 ??F) 06/04/2023 1:00 PM OUTBOARD MOTOR MECHANIC Respiratory Rate 14 06/04/2023 1:30 PM OUTBOARD MOTOR MECHANIC Oxygen Saturation 98% 06/04/2023 1:30 PM OUTBOARD MOTOR MECHANIC Inhaled Oxygen Concentration - - Weight 108.9 kg (240 lb) 06/04/2023 11:16 AM OUTBOARD MOTOR MECHANIC Height 182.9 cm (6') 06/04/2023 11:16 AM OUTBOARD MOTOR MECHANIC Body Mass Index 32.55 06/04/2023 11:16 AM OUTBOARD MOTOR MECHANIC documented in this encounter Medications at Time [...] H&P Notes * Melody Lilly MD - 06/02/2023 10:02 AM CST Pre Endoscopy History and Physical Chester Dubose Jr. is a 52 y.o. male who is here for Procedure(s): ESOPHAGOGASTRODUODENOSCOPY The indication(s) for the procedure(s): H/o Chornic liver disease/Cirrhosis, variceal surveillance, Last EGD Impression: - Normal upper third of esophagus [...] Tobacco Use Smoking status: Every Day Packs/day: 0.25 Years: 40.00 Additional pack years: 0.00 Total pack years: 10.00 Types: Cigarettes Last attempt to quit: 03/2020 Years since quittin.2 Smokeless tobacco: Former Substance and Sexual Activity Drug use: Not Currently Types: Marijuana, Cocaine, Methamphetamines Comment: marijuana monthly Sexual activity: Defer Alcohol Use: Not At Risk (10/18/2022) AUDIT-C Frequency of Alcohol Consumption: Never Average Number of Drinks: Patient does not drink Frequency of Binge Drinking: Never Family History [...] tablet every morning 04/25/22 Crista Faulkner MD pantoprazole DR (PROTONIX) 40 mg EC tablet Take 1 tablet (40 mg total) by mouth daily Patient not taking: Reported on 03/15/2023 05/08/22 05/08/23 Melody Lilly MD pramipexole (MIRAPEX) [...] planned procedure for the reasons stated above. OARD MOTOR MECHANIC documented in this encounter Procedure Notes * Melody Lilly MD - 06/04/2023 12:17 PM CSTAssociated Order(s): EGD GI ENDOSCOPY [facility] Patient Name: Chester Dubose Procedure Date: 06/04/2023 12:17 PM Date of : 1970 Admit Type: Outpatient Age: 52 Gender: Male Attending MD: Melody Lilly M.D. Room: [facility] ENDOSCOPY ROOM 1 Note Status: Finalized Procedure: Upper GI endoscopy Indications: Surveillance procedure, Esophageal varices Referring MD: Romeo Mahoney M.D. Providers: Melody [...] an anesthesia professional. Deep sedation was attained. - The heart rate, respiratory rate, oxygen saturations, blood pressure, adequacy of pulmonary ventilation, and response to care were monitored throughout the procedure. The benefits, risks, and alternatives to the procedure and sedation were discussed and informed consent was obtained. The scope was passed under direct vision. The GIF [id number] endoscope was introduced through the mouth, and advanced to the second part of duodenum. The upper GI endoscopy was accomplished without difficulty. The patient tolerated the procedure well. Findings: The proximal esophagus and mid esophagus were normal. Grade I varices were found in the distal esophagus. They were small in size. Diffuse mildly erythematous mucosa without bleeding was found in the entire examined stomach. Portal gastropathy noted. The duodenal bulb and second portion of the duodenum were normal. Impression: - Normal proximal esophagus and mid [...] Resume previous diet. - Continue present medications. - Repeat EGD in one year for surveillance, (or earlier if decompensation in 6 months) - The findings and recommendations were discussed with the patient. - In the unusual situation that you develop abdominal pain, bleeding or other significant problems in the days following this procedure please call my office [phone]). After hours and evenings please call [phone] and speak to the GI fellow oncall [...] by Melody Lilly MD Melody Lilly M.D. 06/04/2023 12:58:07 PM . Number of Addenda: 0 Note Initiated On: 06/04/2023 12:17 PM Recognized by the [employer] for promoting quality in endoscopy OARD MOTOR MECHANIC documented in this encounter Plan of Treatment Not on file documented as of this encounter Procedures Procedure Name Priority Date/Time Associated Diagnosis Comments ESOPHAGOGASTRODUODENOSCOPY 06/04 12:38 PM OUTBOARD MOTOR MECHANIC Idiopathic esophageal varices without bleeding (CMS/HCC) (HCC) EGD 06/04/2023 12:17 PM OUTBOARD MOTOR MECHANIC documented in this encounter Results * EGD (06/04/2023 12:17 PM OUTBOARD MOTOR MECHANIC) Anatomical Region Laterality Modality Other Narrative Procedure Note Melody Lilly MD - 06/04/2023 12:17 PM CST GI ENDOSCOPY [facility] Patient Name: Chester Dubose Procedure Date: 06/04/2023 12:17PM Date of : 1970 Admit Type: Outpatient Age: 52 Gender: Male Attending MD: Melody Lilly M.D. Room: [facility] ENDOSCOPY ROOM 1 Note Status: Finalized Procedure: Upper GI endoscopy Indications: Surveillance procedure, Esophageal varices Referring MD: Romeo Mahoney M.D. Providers: Melody [...] an anesthesia professional. Deep sedation was attained. - The heart rate, respiratory rate, oxygen saturations, blood pressure, adequacy of pulmonary ventilation, and response to care were monitored throughout the procedure. The benefits, risks, and alternatives to theprocedure and sedation were discussed and informed consentwas obtained. The scope was passed under direct vision. The GIF [id number] endoscope was introduced through the mouth, and advanced to the second partof duodenum. The upper GI endoscopy was accomplished without difficulty. The patient tolerated the procedure well. Findings: The proximal esophagus and mid esophagus were normal. Grade I varices were found in the distal esophagus. They were smallin size. Diffuse mildly erythematous mucosa without bleeding was found in the entire examined stomach. Portal gastropathy noted. The duodenal bulb and second portion of the duodenum were normal. Impression: - Normal proximal esophagus and mid [...] Resume previous diet. - Continue present medications. - Repeat EGD in one year for surveillance, (orearlier if decompensation in 6 months) - The findings and recommendations were discussedwith the patient. - In the unusual situation that you developabdominal pain, bleeding or other significant problems inthe days following this procedure please call my office [phone]). After hours and eveningsplease call [phone] and speak to the GI fellow oncall [...] by Melody Lilly MD Melody Lilly M.D. 06/04/2023 12:58:07 PM . Number of Addenda: 0 Note Initiated On: 06/04/2023 12:17 PM Recognized by the [employer] for promoting quality [...] mg, intravenous, Administer over 2 Minutes, Every 6 hours PRN, nausea, vomiting, Starting on Sun06/04/23 at 1112, Pre-Procedure (GI) sodium chloride 0.9% flush 0.5-20 mL 0.5-20 mL, intra-catheter, As needed, line care, Starting on Sun06/04/23 at 1112, Pre-Procedure (GI), Flush volume based on line type and size. Flush before and after each use. , Indications: FlushingIndications:Flushin g sodium chloride 0.9% infusion 30 mL/hr, intravenous, Continuous, Starting on Sun06/04/23 at 1145 Rate/Dose Verify 06/04/2023 12:37 PM OUTBOARD MOTOR MECHANIC 30 mL/hr New Bag 06/04/2023 11:22 AM OUTBOARD MOTOR MECHANIC 30 mL/hr 30 mL/hr documented in this encounter Discontinued Medications Medication Sig Discontinue Reason Start Date End Da te pantoprazole DR (PROTONIX) 40 mg EC tablet Take 1 tablet (40 mg total) by mouth daily Stop Taking at Discharge 05/08/2022 06/04/2023 documented as of this encounter Active and Recently Administered Medications Times are shown in OUTBOARD MOTOR MECHANIC. Continuous Medication Order 06/02/2023 06/03/2023 06/04/2023 sodium chloride 0.9% infusion 30 mL/hr, intravenous, Continuous, Starting on Sun06/04/23 at 1145 1122 (New Bag - Prov ider: Arielle Vázquez RN)1237 (Rate/Dose Verify - Provider: Tess Pendleton CRNA)1812 (Due: Stopped) PRN Medication Order 06/02/2023 06/03/2023 06/04/2023 ondansetron (ZOFRAN) injection 4 mg 4 mg, intravenous, Administer over 2 Minutes, Every 6 hours PRN, nausea, vomiting, Starting on Sun06/04/23 at 1112, Pre-Procedure (GI) sodium chloride 0.9% flush 0.5-20 mL 0.5-20 mL, intra-catheter, As needed, line care, Starting on Sun06/04/23 at 1112, Pre-Procedure (GI), Flush volume based on line type and size. Flush before and after each use. , Indications: Flushing documented in this encounter Orders Medications Ordered That Salo ht Not Have Been Administered Count Last Ordered Date First Ordered Date ondansetron (ZOFRAN) injection 4 mg 1 06/04 sodium chloride 0.9% flush 0.5-20 mL 1 05/18 Discharge Count Last Ordered Date First Orde red Date DISCHARGE PATIENT 1 06/04/2023 documented in this encounter Care Teams Solderer Dipper Relationship Specialty Start Date End Date Michelle Delcid MD [address] [place] [address] PCP - General Family Medicine 04/27/22 documented as of this encounter
--- OUTSIDE RECORDS SUMMARY | 2024-06-27 04:53 | XMS_ITS | Encounter Summary ---
Author Organization [facility] Address [address] [place] [address] Phone Care Team Providers Care Spinner Box Name Role Phone Unavailable Primary Care Provider Unavailabl e Encounter Details Date Type Department Care Team (Late st Contact Info) Description 08/29/2021 Orders Only [facility] Gastroenterology [address] [facility] [address] 8[address] [place] [address] [place] [phone] Bibi Greene, REJI Social History Tobacco Use Types Packs/Day Years [...]
--- OUTSIDE RECORDS SUMMARY | 2024-06-27 04:53 | XMS_ITS | Encounter Summary ---
Author Organization [facility] Healthcare Address [address] [place] [address] Care Team Providers Care Sweatband Decorating Machine Operator Name Role Phone Michelle Delcid MD Primary Care Provider [phone]- [phone] Reason for Visit * Auth/Cert (Routine) Specialty [...] liver without ascites (CMS/HCC) (HCC) [K70.30] Procedures [place] ESOPHAGOGASTRODUODENOSCOPY TRANSORAL DIAGNOSTIC EGD Referral ID Status Reason Start Date Expiration Date Visits Re quested Visits Authorized [id number] 1 1 Encounter Details Date Type Department Care Team (Late st Contact Info) Description 10/18/2022 10:30 AM CDT - 10/18/2022 11:00 AM CDT Surgery [facility] [address] [place] [id number] Melody Lilly MD [address] [place] [address] EGD Surgery Details Date/Time Status Location OR Service Patient Class Case Class Case Type Trauma Case? 10/18/2022 10:30 AM Posted [facility] ENDOSCOPY GI 06 Gastroenterology Outpatient Elective Panel 1 Procedure LRB Anes Op Region Wound Class Comments EGD N/A Monitor Anesthesia Care Surgeon Surgeon Role Service Panel Melody Lilly [...] Sign Reading Time Taken Comments Blood Pressure 124/86 10/18/2022 11:00 AM CDT Pulse 83 10/18/2022 11:00 AM CDT Temperature 36.6 ??C (97.8 ??F) 10/18/2022 10:01 AM C DT Respiratory Rate 16 10/18/2022 11:00 AM CDT Oxygen Saturation 95% 10/18/2022 11:00 AM CDT Inhaled Oxygen Concentration - - [...] Male Attending MD: Melody Lilly M.D. Room: [facility] ENDOSCOPY ROOM 2 Note Status: Finalized Procedure: [...] 10/18/2022 10:00 AM Admit Type: Outpatient Room: [facility] Date of : 1970 Instrument Name: [id number] [...] following this procedure please call my office [phone]). After hours and evenings please call [phone] and speak to the GI fellow oncall [...] personal history questions. RN attempted to contact nursinghome, number provided by sister Sarah, but unable [...] 10/18/2022 10:00 AM Admit Type: Outpatient Room: [facility] Date of : 1970 Instrument Name: [id number] Gender: Male Note Status: Finalized Procedure: Upper [...] following this procedure please call my office [phone]). After hours and eveningsplease call [phone] and speak to the GI fellow oncall [...] 10/18/2022 10:00 AM Scope In: Scope Out: Melody Lilly MD ENDOSCOPY PROCEDURES F inal [...] 10/18/2022 documented in this encounter Care Teams Sweatband Decorating Machine Operator Relationship Specialty Start Date End Date Michelle Delcid MD [address] [place] [id number] PCP - General Family Medicine 04/27/22 documented as of this encounter
--- OUTSIDE RECORDS SUMMARY | 2024-06-27 04:53 | XMS_ITS | Encounter Summary ---
Author Organization [facility] Healthcare Address [address] [place] [address] Care Team Providers Care Special Procedure Tech Name Role Phone Unavailable Primary Care Provider Unavailabl e Encounter Details Date Type Department Care Team (Late st Contact Info) Description 03/21/[address] [phone] Tanya Valadez RN Social History Tobacco Use Types Packs/Day [...]
--- OUTSIDE RECORDS SUMMARY | 2024-06-27 04:53 | XMS_ITS | Encounter Summary ---
Author Organization [facility] Address [address] [place] [address] Phone Care Team Providers Care Telephone Lineworker Name Role Phone Unavailable Primary Care Provider Unavailabl e Reason for Visit * Reason Onset Date Comments Schedule Ultrasound 08/22/2021 Encounter Details Date Type Department Care Team (Late st Contact Info) Description 08/22/2021 Telephone [facility] [address] [facility] [address] [place] [address] [place] [phone] Chantel Chand LPN Schedule Ultrasound Social History Tobacco Use Types [...] encounter Miscellaneous Notes * Telephone Encounter - Chantel Chand LPN - 08/22/2021 9:47 AM CST Patient is scheduled for 09/26 at [facility] at 8:40 am he will need to arrive 15 minutes early, nothing to eat or drink for 8 hours prior and will go in through the main enterance of the hospital. Patient's sister Sarah is aware of date/time and instructions. CLOTH EXAMINER * Telephone Encounter - Chantel Chand LPN - 08/22/2021 9:35 AM CST ----- Message from Henrietta Thomas sent at 08/12/2021 12:48 PM HAND CLOTH EXAMINER ----- Regarding: FW: Ultrasound September ----- Message ----- From: Henrietta Thomas Sent: 08/12/2021 12:00 AM HAND CLOTH EXAMINER To: Nayan Mahoney/Balbir Holley Subject: Ultrasound September [facility] [place] due for liver Ultrasound in September for HCC screen CLOTH EXAMINER documented in this encounter Plan of Treatment Not on file documented as of this encounter Visit Diagnoses Diagnosis Hepatic encephalopathy (HCC)- Primary Hepatic encephalopathy Alcoholic cirrhosis of liver with ascites (CMS/HCC) (HCC) documented in this encounter
--- OUTSIDE RECORDS SUMMARY | 2024-06-27 04:53 | XMS_ITS | Encounter Summary ---
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 Drugs of Abuse Screen, Urine without Confirmation (08/24/2021 4:03 PM COAL TRAM DRIVER) Amphetamine, ur Detected(A) CutOff 500ng/mL [facility] Comment: Interpretive Data - Amphetamines: ??Samples containing greater than 500 ng/mL d-methamphetamine ??or other cross-reacting amphetamine compounds are reported as positive. ??Amphetamine immunoassays are subject to significant false positive rates due to cross-reactivity of non-amphetamine drugs. Current Interpretive Data was last reviewed 2018. Testing performed by: [facility], [address] [place] [address]., [address] Barbiturates, ur Not Detected CutOff 200ng/mL [facility] Comment: Interpretive Data - Barbiturates: ??Samples containing greater than 200 ng/mL secobarbital or other cross-reacting barbiturate compounds are reported as positive. ??False positive and false negative results are possible. Current Interpretive Data was last reviewed 2018. Testing performed by: [facility], [address] [place] [address]., [address] Benzodiazepines, ur Not Detected CutOff 100ng/mL [facility] Comment: Interpretive Data - Benzodiazepines: ??Samples containing greater than 100 ng/mL nordiazepam or other cross-reacting compounds are reported as positive. ?? False positive and false negative results are possible. ?? Current Interpretive Data was last reviewed 2018. Testing performed by: [address] [address] Cannabinoids, ur Detected(A) CutOff 50 ng/mL [facility] Comment: Interpretive Data - Cannabinoids: ??Samples containing greater than 50 ng/mL delta-9 THC -COOH or other cross-reacting compounds are reported as positive. ??False positive and false negative results are possible. ?? Current Interpretive Data was last reviewed 2018. Testing performed by: [address] [address] Cocaine, ur Not Detected CutOff 150ng/mL [facility] Comment: Interpretive Data - Cocaine: ??Samples containing greater than 150 ng/mL benzoylecgonine or other cross-reacting compounds are reported as positive. False positive and false negative results are possible. Current Interpretive Data was last reviewed 2018. Testing performed by: [address] [address] Fentanyl, Ur Not Detected Cutoff 1 ng/mL [facility] Comment: Interpretive Data - Fentanyls: ??Samples containing greater than 1 ng/mL fentanyl or other cross-reacting fentanyl compounds are reported as detected. ??False positive and false negative results are possible. Current Interpretive Data was last reviewed 2019. Testing performed by: [address] [address] Methadone, ur Not Detected CutOff 300ng/mL KENNY Comment: Interpretive Data - Methadone: ??Samples containing greater than 300 ng/mL d,l-methadone or other cross-reacting compounds are reported as positive. ??False positive and false negative results are possible. Current Interpretive Data was last reviewed 2018. Testing performed by: [address] [address] Opiates, ur Not Detected CutOff 300ng/mL [facility] Comment: Interpretive Data - Opiates: ??Samples containing greater than 300 ng/mL morphine or other cross-reacting compounds are reported as positive. ??False positive and false negative results are possible. Current Interpretive Data was last reviewed 2018. Testing performed by: [address] [address] Oxycodone, ur Not Detected CutOff 100ng/mL [facility] Comment: Interpretive Data - Oxycodone: ??Samples containing greater than 100 ng/mL oxycodone or other cross-reacting compounds are reported as positive. ??False positive and false negative results are possible. ?? Current Interpretive Data was last reviewed 2018. Testing performed by: [address] [address] Phencyclidine, ur Not Detected CutOff 25 ng/mL [facility] Comment: Interpretive Data - Phencyclidine: ??Samples containing greater than 25 ng/mL phencyclidine or other cross-reacting compounds are reported as positive. ??False positive and false negative results are possible. ?? Current Interpretive Data was last reviewed 2018. Testing performed by: [address] [address] Urine Creatinine 70 mg/dL KENNY Comment: Interpretive Data Urine Creatinine: < 10 mg/dL is extremely dilute = or > 10 but < 20 mg/dL is dilute = or > 20 mg/dL is normal Current Interpretive Data was last revised on 2017. Testing performed by: [address] [address] Urine 08/24/2021 4:03 PM COAL TRAM DRIVER 08/24/2021 4:07 PM COAL TRAM DRIVER Narrative KENNY - 08/24/2021 5:03 PM COAL TRAM DRIVER Drug of Abuse screening is performed by immunoassay for medical purposes only. ??This is not to be used for Pain Management purposes. us Jerrica Botello MD LAB URINE ORDERABLES Final Resul t KENNY [address] [facility] Department [place] [address] * (ABNORMAL) Urinalysis reflex to microscopic and culture Urine (08/24/2021 4:03 PM COAL TRAM DRIVER) Color, ur Yellow Yellow KENNY Comment:Testing performed by : [address] [address] Clarity, ur Cloudy(A) Clear KENNY Comment:Testing performed by : [address] [address] Specific gravity, ur 1.014 1.003 - 1.030 KENNY Comment:Testing performed by : [address] [address] pH, urine 7.0 KENNY Comment:Testing performed by : [address] [address] Protein, ur ql Negative Negative KENNY Comment:Testing performed by : [address] [address] Glucose, ur ql Negative Negative KENNY Comment:Testing performed by : [address] [address] Ketones, ur Negative Negative KENNY Comment:Testing performed by : [address] [address] Bilirubin, ur Negative Negative KENNY Comment:Testing performed by : [address] [address] Blood, ur 2+(A) Negative KENNY Comment:Testing performed by : [facility], [address] [place] [address]., [address] Urobilinogen, ur <2.0 <2.0 mg/dL KENNY Comment:Testing performed by : [address], [place]., [address] Nitrite, ur Negative Negative KENNY Comment:Testing performed by : [address] [address] Leukocyte esterase, ur Negative Negative KENNY Comment:Testing performed by : [address], [place]., [address] UA reflex comment Reflex to microscopic UA will be performed. KENNY Comment:Testing performed by : [address] [address] Urine 08/24/2021 4:03 PM COAL TRAM DRIVER 08/24/2021 4:07 PM COAL TRAM DRIVER Narrative KENNY - 08/24/2021 4:23 PM COAL TRAM DRIVER ?? Urine pH is affected by diet, medications, systemic acid-base disturbances, and renal tubular function. ??pH may affect urinary stone formation. ??For example, urine pH below 6.0 may help reduce the tendency for calcium phosphate stones and pH greater than 6.0 may reduce the tendency for uric acid stone formation. Source: [facility] [email or web address]. Last revised 06-28-2017 us Jerrica Botello MD LAB MICROBIOLOGY - GENERAL ORDER WILLIAN Final Result [facility] [address] [facility] Department [place] [address] * XR Chest 1 Vw Portable (08/24/2021 3:53 PM COAL TRAM DRIVER) Anatomical Region Laterality Modality Body, Chest N/A Computed Radiogr aphy 08/24/2021 3:58 PM COAL TRAM DRIVER Narrative 08/24/2021 4:00 PM COAL TRAM DRIVER EXAM DESCRIPTION: ?? XR CHEST 1 VIEW REASON FOR STUDY: ?? Other (complete free text reason below), post intubation S/P ET tube placement today ?? TECHNIQUE: ?? Frontal ??radiographic view of the chest acquired. COMPARISON: ?? Prior chest x-rays, most recent 12/30/2019 FINDINGS: HARDWARE/LINES/TUBES: ??Endotracheal tube has been placed with the tip 5.5 cm above the aris. ??An enteric tube has also been placed, coursing down the esophagus neck pain with the side port seen well below the gastroesophageal junction in the gastric fundus, and the tip outside of the field of view. LUNGS/PLEURA: ?? No focal consolidation. ??No pneumothorax or large pleural effusion. HEART/MEDIASTINUM: ?? Heart size is normal. Normal mediastinal and hilar contours. BONES: ?? No acute findings. OTHER: ?? No other significant finding. IMPRESSION: ??Endotracheal tube and enteric tube have been placed, in grossly appropriate position. ??No acute cardiopulmonary process identified. THIS IS AN ELECTRONICALLY VERIFIED FINAL REPORT 08/24/2021 4:00 PM - Electronically signed by ??Adonay Cui M.D. BC: MAK D: ??08/24/2021 4:00 PM T: ??08/24/2021 4:00 PM Report ID: [id number] Reading Location: ??[id number] Procedure Note Adonay Cui MD - 08/24/2021 EXAM DESCRIPTION: XR CHEST 1 VIEW REASON FOR STUDY: Other (complete free text reason below), postintubation S/P ET tube placement today TECHNIQUE: Frontal radiographic view of the chest acquired. COMPARISON: Prior chest x-rays, most recent 12/30/2019 FINDINGS: HARDWARE/LINES/TUBES: Endotracheal tube has been placed with the tip 5.5cm above the aris. An enteric tube has also been placed, coursing down the esophagus neck pain with the side port seen well below thegastroesophageal junction in the gastric fundus, and the tip outside of the field of view. LUNGS/PLEURA: No focal consolidation. No pneumothorax or large pleural effusion. HEART/MEDIASTINUM: Heart size is normal. Normal mediastinal and hilar contours. BONES: No acute findings. OTHER: No other significant finding. IMPRESSION: Endotracheal tube and enteric tube have been placed, in grosslyappropriate position. No acute cardiopulmonary process identified. THIS IS AN ELECTRONICALLY VERIFIED FINAL REPORT 08/24/2021 4:00 PM - Electronically signed by Adonay Cui M.D. BC: MAK Report ID: [id number] Reading Location: [place] [address] us Jerrica Botello MD IMG XR PROCEDURES Final Result * ED INTUBATION (08/24/2021 3:43 PM COAL TRAM DRIVER) Narrative Jerrica Botello MD - 08/24/2021 3:43 PM COAL TRAM DRIVER Jerrica Botello MD ? 08/24/2021 ??6:19 PM Intubation Date/Time: 08/24/2021 3:43 PM Performed by: Jerrica Botello MD Authorized by: Jerrica Botello MD [place] Protocol: ??RN Notified of Procedure: yes ?Informed consent: ??Risks, benefits, alternatives discussed and patient/technical support representative/guardian agrees and accepts ??Patient's stated name/ matches armband: ??Yes ??Allergies confirmed: yes ?Consent form signed, dated, timed; matches correct patient, intended procedure and site: ??Yes ??Lab/Diag test results: ??Pertinent lab/diag tests reviewed and match to patient identifiers ??Supplies, devices and special equipment are available: yes ?Site/side marked: yes ?Immediately prior to the procedure a time out was called: a verbal verification by the procedure participants confirmed correct patient identity, correct site/side marked and visible (if applicable); agreement on procedure to be done; and correct patient positioning ?? Procedure details: ??Intubation method: ??Oral ??Tube size (mm): ??8.0 ??Number of attempts: ??1 ??Tube visualized through cords: yes ?? Placement assessment: ??Breath sounds: ??Equal and absent over the epigastrium ??Placement verification: chest rise, CXR verification and ETCO2 detector ?? Post-procedure details: ??Patient tolerance of procedure: ??Tolerated well, no immediate complications Post Procedure Debrief: ??All guidewires, needles, sponges or other items are accounted for: yes ?Any special post procedure monitoring, testing or other considerations: yes (enter/request order) ?All specimens identified, labeled and matched to patient identification: yes ?Responsible republican for transporting specimen(s) to lab determined: yes ?? us Jerrica Botello MD IN CLINIC/BEDSIDE ORDERABLES Fin al Result * eGFR (08/24/2021 2:28 PM COAL TRAM DRIVER) eGFR 118 mL/min/1. 73 m2 KENNY MCKINNEY Comment: Interpretive Data Reference [...] Current interpretive data was last reviewed 2021. Testing performed by: [facility], [address] [place] [address], [place]., [address] Blood 08/24/2021 2:28 PM COAL TRAM DRIVER 08/24/2021 2:32 PM COAL TRAM DRIVER us Jerrica Botello MD LAB BLOOD ORDERABLES Final Resul t KENNY [facility] Department [place] [address] * (ABNORMAL) Comprehensive metabolic panel (08/24/2021 2:28 PM COAL TRAM DRIVER) [facility] Sodium 136 135 - 145 mmol/L KENNY Comment:Testing performed by : [address], [place]., [address] Potassium, pl 3.8 3.3 - 4.9 mmol/L KENNY Comment:Testing performed by : [address], [place]., [address] Chloride 101 97 - 110 mmol/L KENNY Comment:Testing performed by : [address], [place]., [address] CO2 23 22 - 32 mmol/L KENNY Comment:Testing performed by : [address], [place]., [address] Anion gap 12 2 - 15 mmol/L KENNY Comment:Testing performed by : [address] [address] BUN 11 8 - 25 mg/dL KENNY Comment:Testing performed by : [address], [place]., [address] Creatinine 0.60(L) 0.80 - 1.30 mg/dL KENNY Comment:Testing performed by : [address], [place]., [address] Glucose 108 70 - 199 mg/dL KENNY Comment: Interpretive Data Fasting glucose >/= 126 [...] Current interpretive data was last revised 2017. Testing performed by: [address], [place]., [address] Calcium 9.0 8.5 - 10.3 mg/dL KENNY Comment:Testing performed by : [address] [address] Bilirubin, total 1.2 0.1 - 1.2 mg/dL KENNY Comment:Testing performed by : [address] [address] Protein, pl 7.2 6.5 - 8.5 g/dL KENNY Comment:Testing performed by : [address] [address] Albumin 3.3(L) 3.5 - 5.0 g/dL KENNY Comment:Testing performed by : [address] [address] Alk phos 155(H) 40 - 130 Units/L KENNY Comment:Testing performed by : [address] [address] ALT 55 7 - 55 Units/L KENNY Comment:Testing performed by : [address] [address] AST 98(H) 10 - 50 Units/L KENNY Comment:Testing performed by : [address] [address] Blood 08/24/2021 2:28 PM COAL TRAM DRIVER 08/24/2021 2:32 PM COAL TRAM DRIVER us Jerrica Botello MD LAB BLOOD ORDERABLES Final Resul t Performing Organization Address [facility] Phone Number KENNY [facility] Department of Laboratories [place], [place] [id number] * Salicylate level (08/24/2021 2:28 PM COAL TRAM DRIVER) Salicylate <1.0 mg/dL KENNY Comment:Testing performed by : [address] [address] Blood 08/24/2021 2:28 PM COAL TRAM DRIVER 08/24/2021 2:32 PM COAL TRAM DRIVER us Jrerica Botello MD LAB BLOOD ORDERABLES Final Resul t Performing Organization Address City/State/[facility] de Phone Number [facility] [address] [facility] [place] [address] * TSH reflex to free T4 (08/24/2021 2:28 PM COAL TRAM DRIVER) Pathologist [facility] TSH 3.44 0.30 - 4.20 mcIUnit/mL KENNY Comment:Testing performed by : [address] [address] Blood 08/24/2021 2:28 PM COAL TRAM DRIVER 08/24/2021 2:32 PM COAL TRAM DRIVER us Jerrica Botello MD LAB BLOOD ORDERABLES Final Resul t Performing Organization Address [facility] Co de Phone Number [place] [phone] [facility] [email or web address] [address] * Differential, auto (08/24/2021 1:00 PM COAL TRAM DRIVER) Pathologist [facility] Neutrophil abs 3.7 1.7 - 6.5 K/cumm KENNY Comment:Testing performed by : [address] [address] Imm gran abs 0.0 0.0 - 0.1 K/cumm KENNY Comment:Testing performed by : [address] [address] Lymphocyte abs 1.7 0.8 - 3.3 K/cumm KENNY Comment:Testing performed by : [address] [address] Monocyte abs 0.7 0.2 - 0.8 K/cumm KENNY Comment:Testing performed by : [address] [address] Eosinophil abs 0.2 0.0 - 0.5 K/cumm KENNY Comment:Testing performed by : [address] [address] Basophil abs 0.1 0.0 - 0.1 K/cumm KENNY Comment:Testing performed by : [address] [address] Neutrophil pct 58.9 % [facility] Comment: Interpretive Data Percent cell count reference ranges are not reported, since discordance with absolute values may lead to misinterpretation of CBC data. Current Interpretive Data was last revised on 2017. Testing performed by: [address] [address] Imm gran pct 0.2 % [facility] Comment: Interpretive Data Percent cell count reference ranges are not reported, since discordance with absolute values may lead to misinterpretation of CBC data. Current Interpretive Data was last revised on 2017. Testing performed by: [address] [address] Lymphocyte pct 26.6 % [facility] Comment: Interpretive Data Percent cell count reference ranges are not reported, since discordance with absolute values may lead to misinterpretation of CBC data. Current Interpretive Data was last revised on 2017. Testing performed by: [address] [address] Monocyte pct 10.6 % [facility] Comment: Interpretive Data Percent cell count reference ranges are not reported, since discordance with absolute values may lead to misinterpretation of CBC data. Current Interpretive Data was last revised on 2017. Testing performed by: [address] [address] Eosinophil pct 2.7 % [facility] Comment: Interpretive Data Percent cell count reference ranges are not reported, since discordance with absolute values may lead to misinterpretation of CBC data. Current Interpretive Data was last revised on 2017. Testing performed by: [address] [address] Basophil pct 1.0 % [facility] Comment: Interpretive Data Percent cell count reference ranges are not reported, since discordance with absolute values may lead to misinterpretation of CBC data. Current Interpretive Data was last revised on 2017. Testing performed by: [address] [address] Blood 08/24/2021 1:00 PM COAL TRAM DRIVER 08/24/2021 1:06 PM COAL TRAM DRIVER us Jerrica Botello MD LAB BLOOD ORDERABLES Final Resul t [facility] [address] [facility] Department [place] [address] * (ABNORMAL) CBC with auto differential (08/24/2021 1:00 PM COAL TRAM DRIVER) [facility] WBC 6.2 3.8 - 9.9 K/cumm KENNY Comment:Testing performed by : [address] [address] Hgb 14.8 13.0 - 17.5 g/dL KENNY Comment:Testing performed by : [address] [address] Hct 42.9 38.9 - 50.3 % KENNY Comment:Testing performed by : [address] [address] Plt 100(L) 150 - 400 K/cumm KENNY Comment:Testing performed by : [address] [address] MPV 12.9(H) 9.1 - 12.3 fL KENNY Comment:Testing performed by : [address] [address] RBC 4.73 4.30 - 5.80 M/cumm KENNY Comment:Testing performed by : [address] [address] MCV 90.7 81.3 - 96.4 fL KENNY Comment:Testing performed by : [address] [address] MCH 31.3 27.1 - 33.3 pg KENNY Comment:Testing performed by : [address] [address] MCHC 34.5 32.3 - 35.7 g/dL KENNY Comment:Testing performed by : [address] [address] RDW CV 15.4(H) 11.1 - 14.9 % KENNY Comment:Testing performed by : [address] [address] RDW SD 49.7(H) 35.7 - 48.1 fL KENNY Comment:Testing performed by : [facility], [address] [place] [address]., [address] NRBC abs 0.00 0.00 - 0.01 K/cumm KENNY Comment:Testing performed by : [facility], [address] [place] [address]., [address] Blood 08/24/2021 1:00 PM COAL TRAM DRIVER 08/24/2021 1:06 PM COAL TRAM DRIVER us Jerrica Botello MD LAB BLOOD ORDERABLES Final Resul t Performing Organization Address City/[facility] Co de Phone Number [facility] [address] [facility] Department [place] [address] * ECG 12 lead (08/24/2021 12:48 PM COAL TRAM DRIVER) Pathologist [facility] Ventricular Rate EKG/Min 85 BPM [facility] Atrial Rate 85 BPM [facility] MT-Interval (MSEC) 140 ms [facility] QRS-Interval (MSEC) 94 ms [facility] QT-Interval (MSEC) 388 ms [facility] QTc 461 ms [facility] P [place] 54 degrees [facility] R [place] 69 degrees [facility] T [place] 63 degrees [facility] Diagnosis Normal sinus rhythm Moderate voltage criteria for LVH, may be normal variant Borderline ECG When compared with ECG of 30-DEC-2019 13:04, Questionable change in QRS axis T wave inversion no longer evident in Inferior leads [facility] 08/24/2021 12:4 8 PM COAL TRAM DRIVER 08/24/2021 3:47 PM COAL TRAM DRIVER us Jerrica Botello MD ECG ORDERABLES Final Result Performing Organization Address [facility] Co de Phone Number [facility] documented in this encounter Visit Diagnoses Diagnosis Intracranial hemorrhage (HCC)- Primary Unspecified intracranial hemorrhage documented in this encounter Administered Medications Inactive Administered Medications - up to 3 most recent administrations Medication Order MAR Action Action Date Dose Rate Site dexAMETHasone (DECADRON) preservative free solution 10 mg 10 mg, intravenous, Administer over 2 Minutes, Once, On Sun08/24/21 at 1648, For 1 dose Given 08/24/2021 4:50 PM COAL TRAM DRIVER 10 mg diazePAM (VALIUM) 5 mg/mL injection - ADS Override Pull Starting on Sun08/24/21 at 1528, For 1 dose, Created by lisyt override Given 08/24/2021 3:30 PM COAL TRAM DRIVER 10 mg Right Forearm etomidate (AMIDATE) 2 mg/mL injection - ADS Override Pull Starting on Sun08/24/21 at 1526, For 1 dose, Created by cabjosettet override Given 08/24/2021 3:36 PM COAL TRAM DRIVER 20 mg levETIRAcetam (KEPPRA) 1,000 mg/100 mL in sodium chloride (premix) - ADS Override Pull Starting on Sun08/24/21 at 1527, For 1 dose, Created by lisyt override Room temperature only levETIRAcetam (KEPPRA) 1,000 mg/100 mL in sodium chloride (premix) 2,000 mg 2,000 mg, intravenous, Administer over 15 Minutes, Once, On Sun08/24/21 at 1629, For 1 dose, Room temperature only New Bag 08/24/2021 3:54 PM COAL TRAM DRIVER 2,000 mg LORazepam (ATIVAN) injection 1 mg 1 mg, intravenous, Once, On Sun08/24/21 at 1439, For 1 dose, For IV administration, dilute with equal volume of 0.9% sodium chloride to a final concentration of 1 mg/mL. Do not exceed a rate of 2 mg/minute Given 08/24/2021 2:41 PM COAL TRAM DRIVER 1 mg LORazepam (ATIVAN) injection 2 mg 2 mg, intravenous, Once, On Sun08/24/21 at 1254, For 1 dose, For IV administration, dilute with equal volume of 0.9% sodium chloride to a final concentration of 1 mg/mL. Do not exceed a rate of 2 mg/minute, Indications: AgitationIndications:A gitation Given 08/24/2021 1:26 PM COAL TRAM DRIVER 2 mg LORazepam (ATIVAN) injection 2 mg 2 mg, intravenous, Once, On Sun08/24/21 at 1510, For 1 dose, For IV administration, dilute with equal volume of 0.9% sodium chloride to a final concentration of 1 mg/mL. Do not exceed a rate of 2 mg/minute, Indications: AgitationIndications:A gitation Given 08/24/2021 3:12 PM COAL TRAM DRIVER 2 mg mannitoL 20 % IV 84 g 84 g (rounded from 83.9 g = 1 g/kg ? 83.9 kg), intravenous, at 840 mL/hr, Administer over 30 Minutes, Once, On Sun08/24/21 at 1716, For 1 dose, May decrease infusion time for emergent therapy for ICP. Use filter 5 micron or less. Room temperature only New Bag 08/24/2021 5:32 PM COAL TRAM DRIVER 84 g 840 mL/hr midazolam (VERSED) 100 mg/100 mL in sodium chloride 0.9% (premix) 0-12 mg/hr (0-12 mL/hr), 1 mg/mL, intravenous, Titrated, Starting on Sun08/24/21 at 1600, Until Sun08/24/21 at 2226, Titration Instructions: Titrate, Initial dose: 0.5 mg/hr, Titrate: Up/Down, Titrate by: 1 mg/hr, Every: 30 minutes, Goal: Other (comment), Routine Rate/Dose Change 08/24/2021 4:27 PM COAL TRAM DRIVER 4 mg/hr 4 mL/hr New Bag 08/24/2021 4:09 PM COAL TRAM DRIVER 3 mg/hr 3 mL/hr niCARdipine (CARDENE) 25,000 mcg in sodium chloride 0.9% 250 mL (100 mcg/mL) infusion 0-2.5 mcg/kg/min ? 83.9 kg (0-125.85 mL/hr), 100 mcg/mL, intravenous, Titrated, Starting on Sun08/24/21 at 1648, Until Sun08/24/21 at 2226, Initial rate: 0.5 mcg/kg/min, Titrate: Up/Down, Titrate by: 0.5 mcg/kg/min, Every: 10 minutes, Goal: SBP, SBP Goal: Other (comment) / 120 mmHg, Routine New Bag 08/24/2021 5:17 PM COAL TRAM DRIVER 0.5 mcg/kg/min 25.2 mL/hr propofol (DIPRIVAN) 10 mg/mL infusion 0-50 mcg/kg/min ? 83.9 kg (0-25.17 mL/hr), 10 mg/mL, intravenous, Titrated, Starting on Sun08/24/21 at 1629, Until Sun08/24/21 at 2226, Titration instructions: Titrate, Initial dose: 10 mcg/kg/min, Titrate: Up/Down, Titrate by: 10 mcg/kg/min, Every: 10 minutes, Goal: Other (comment), Do not administer through the same I.V. catheter with blood or plasma. Tubing and any unused portions of propofol vials should be discarded after 12 hours. Room temperature only, Routine Rate/Dose Change 08/24/2021 5:47 PM COAL TRAM DRIVER 100 mcg/kg/min 50.3 mL/hr Rate/Dose Change 08/24/2021 5:23 PM COAL TRAM DRIVER 80 mcg/kg/min 40.3 mL/hr New Bag 08/24/2021 3:37 PM COAL TRAM DRIVER 50 mcg/kg/min 25.2 mL/hr propofoL (DIPRIVAN) 10 mg/mL IV - ADS Override Pull Starting on Sun08/24/21 at 1526, For 1 dose, Created by cabinet override Room temperature only sodium chloride 0.9% 0.9% infusion - ADS Override Pull Starting on Sun08/24/21 at 1527, For 1 dose, Created by cabinet override sodium chloride 0.9% infusion 250 mL/hr, intravenous, Continuous, Starting on Sun08/24/21 at 1546 New Bag 08/24/2021 4:50 PM COAL TRAM DRIVER 250 mL/hr 250 mL/hr sodium chloride 0.9% infusion 125 mL/hr, intravenous, Continuous, Starting on Sun08/24/21 at 1602 succinylcholine (ANECTINE) 20 mg/mL injection - ADS Override Pull Starting on Sun08/24/21 at 1526, For 1 dose, Created by cabinet override WARNING: Causes respiratory paralysis. Patient must be ventilated. succinylcholine (ANECTINE) injection 120 mg 120 mg, intravenous, Once, On Sun08/24/21 at 1629, For 1 dose, WARNING: Causes respiratory paralysis. Patient must be ventilated. Given 08/24/2021 3:36 PM COAL TRAM DRIVER 120 mg documented in this encounter Discontinued Medications Medication Sig Discontinue Reason Start Date End Da te gabapentin (NEURONTIN) 100 mg capsuleIndications:Drug-in duced polyneuropathy (HCC),Restless leg syndrome TAKE 1 CAPSULE BY MOUTH NIGHTLY Therapy completed 04/06/2021 08/24/2021 lactulose 0.67 gram/mL solutionIndications:Hepati c encephalopathy (HCC) Take 30 mL (20 g total) by mouth 3 (three) times a day Therapy completed 09/17/2020 08/24/2021 folic acid (FOLVITE) 1 mg tabletIndications:Alcoholi c cirrhosis of liver with ascites (CMS/HCC) (HCC) Take 1 tablet (1 mg total) by mouth daily Therapy completed 09/16/2020 08/24/2021 documented as of this encounter Active and Recently Administered Medications Times are shown in COAL TRAM DRIVER. Scheduled Medication Order 08/22/2021 08/23/2021 08/24/2021 dexAMETHasone (DECADRON) preservative free solution 10 mg (COMPLETED) 10 mg, intravenous, Administer over 2 Minutes, Once, On Sun08/24/21 at 1648, For 1 dose 1650 (Given - Provid er: Christy Holliday RN) levETIRAcetam (KEPPRA) 1,000 mg/100 mL in sodium chloride (premix) 2,000 mg (COMPLETED) 2,000 mg, intravenous, Administer over 15 Minutes, Once, On Sun08/24/21 at 1629, For 1 dose, Room temperature only 1554 (New Bag - Prov ider: Christy Holliday RN)1626 (Incomplete - Provider: Christy Holliday RN)1654 (Stopped - Provider: Christy Holliday RN)1655 (Stopped - Provider: Christy Holliday RN) LORazepam (ATIVAN) injection 1 mg (COMPLETED) 1 mg, intravenous, Once, On Sun08/24/21 at 1439, For 1 dose, For IV administration, dilute with equal volume of 0.9% sodium chloride to a final concentration of 1 mg/mL. Do not exceed a rate of 2 mg/minute 1441 (Given - Provid er: Christy Holliday RN) LORazepam (ATIVAN) injection 2 mg (COMPLETED) 2 mg, intravenous, Once, On Sun08/24/21 at 1254, For 1 dose, For IV administration, dilute with equal volume of 0.9% sodium chloride to a final concentration of 1 mg/mL. Do not exceed a rate of 2 mg/minute, Indications: Agitation 1326 (Given - Provid er: Christy Holliday RN) LORazepam (ATIVAN) injection 2 mg (COMPLETED) 2 mg, intravenous, Once, On Sun08/24/21 at 1510, For 1 dose, For IV administration, dilute with equal volume of 0.9% sodium chloride to a final concentration of 1 mg/mL. Do not exceed a rate of 2 mg/minute, Indications: Agitation 1512 (Given - Provid er: Christy Holliday RN) LORazepam (ATIVAN) injection 2 mg 2 mg, intravenous, Once, On Sun08/24/21 at 1520, For 1 dose, For IV administration, dilute with equal volume of 0.9% sodium chloride to a final concentration of 1 mg/mL. Do not exceed a rate of 2 mg/minute LORazepam (ATIVAN) injection 3 mg 3 mg, intravenous, Once, On Sun08/24/21 at 1525, For 1 dose, For IV administration, dilute with equal volume of 0.9% sodium chloride to a final concentration of 1 mg/mL. Do not exceed a rate of 2 mg/minute mannitoL 20 % IV 84 g (COMPLETED) 84 g (rounded from 83.9 g = 1 g/kg ? 83.9 kg), intravenous, at 840 mL/hr, Administer over 30 Minutes, Once, On Sun08/24/21 at 1716, For 1 dose, May decrease infusion time for emergent therapy for ICP. Use filter 5 micron or less. Room temperature only 1732 (New Bag - Prov ider: Christy Holliday RN)1825 (Stopped - Provider: Christy Holliday RN) succinylcholine (ANECTINE) injection 120 mg (COMPLETED) 120 mg, intravenous, Once, On Sun08/24/21 at 1629, For 1 dose, WARNING: Causes respiratory paralysis. Patient must be ventilated. 1536 (Given - Provid er: Christy Holliday RN) Continuous Medication Order 08/22/2021 08/23/2021 08/24/2021 midazolam (VERSED) 100 mg/100 mL in sodium chloride 0.9% (premix) 0-12 mg/hr (0-12 mL/hr), 1 mg/mL, intravenous, Titrated, Starting on Sun08/24/21 at 1600, Until Sun08/24/21 at 2226, Titration Instructions: Titrate, Initial dose: 0.5 mg/hr, Titrate: Up/Down, Titrate by: 1 mg/hr, Every: 30 minutes, Goal: Other (comment), Routine 1609 (New Bag - Prov ider: Christy Holliday RN - Comment: Per ER MD.)1627 (Rate/Dose Change - Provider: Christy Holliday RN)1826 (Stopped - Provider: Christy Holliday RN) niCARdipine (CARDENE) 25,000 mcg in sodium chloride 0.9% 250 mL (100 mcg/mL) infusion 0-2.5 mcg/kg/min ? 83.9 kg (0-125.85 mL/hr), 100 mcg/mL, intravenous, Titrated, Starting on Sun08/24/21 at 1648, Until Sun08/24/21 at 2226, Initial rate: 0.5 mcg/kg/min, Titrate: Up/Down, Titrate by: 0.5 mcg/kg/min, Every: 10 minutes, Goal: SBP, SBP Goal: Other (comment) / 120 mmHg, Routine 1717 (New Bag - Prov ider: Christy Holliday RN)1825 (Stopped - Provider: Christy Holliday RN) propofol (DIPRIVAN) 10 mg/mL infusion 0-50 mcg/kg/min ? 83.9 kg (0-25.17 mL/hr), 10 mg/mL, intravenous, Titrated, Starting on Sun08/24/21 at 1629, Until Sun08/24/21 at 2226, Titration instructions: Titrate, Initial dose: 10 mcg/kg/min, Titrate: Up/Down, Titrate by: 10 mcg/kg/min, Every: 10 minutes, Goal: Other (comment), Do not administer through the same I.V. catheter with blood or plasma. Tubing and any unused portions of propofol vials should be discarded after 12 hours. Room temperature only, Routine 1537 (New Bag - Prov ider: Christy Holliday RN - Comment: MD ordered)1723 (Rate/Dose Change - Provider: Christy Holliday RN - Comment: AMount given per verbal order from TRISTON JO)1747 (Rate/Dose Change - Provider: Christy Holliday, REJI - Comment: per MD verbal order)1825 (Stopped - Provider: Christy Holliday, REJI) sodium chloride 0.9% infusion 250 mL/hr, intravenous, Continuous, Starting on Sun08/24/21 at 1546 1650 (New Bag - Prov ider: Christy Holliday, RN)1723 (Stopped - Provider: Christy Holliday, RN) sodium chloride 0.9% infusion 125 mL/hr, intravenous, Continuous, Starting on Sun08/24/21 at 1602 1602 (Due) No Frequency Medication Order 08/22/2021 08/23/2021 08/24/2021 diazePAM (VALIUM) 5 mg/mL injection - ADS Override Pull (COMPLETED) Starting on Sun08/24/21 at 1528, For 1 dose, Created by cabinet override 1530 (Given - Provid er: Christy Holliday RN) etomidate (AMIDATE) 2 mg/mL injection - ADS Override Pull (COMPLETED) Starting on Sun08/24/21 at 1526, For 1 dose, Created by cabinet override 1536 (Given - Provid er: Christy Holliday RN) documented in this encounter Orders Medications Ordered That Salo ht Not Have Been Administered Count Last Ordered Date First Ordered Date levETIRAcetam (KEPPRA) 1,500 mg/100 mL in sodium chloride (premix) 1,500 mg 1 08/24/2021 LORazepam (ATIVAN) 2 mg/mL i njection - ADS Override Pull 1 08/24/2021 LORazepam (ATIVAN) 20 mg in dextrose 5% 100 mL (0.2 mg/mL) infusion 1 08/24/2021 LORazepam (ATIVAN) injection 2 mg 1 022 LORazepam (ATIVAN) injection 3 mg 1 022 propofoL (DIPRIVAN) 10 mg/mL IV - ADS Override Pull 1 08/24/2021 sodium chloride 0.9% infusion 1 08/24/2021 Nursing Count Last Ordered Date First Orde red Date CARDIO RESPIRATORY MONITORING 1 08/24/2021 IV Count Last Ordered Date First Orde red Date INSERT PERIPHERAL IV 1 08/24/2021 SALINE LOCK IV 1 08/24/2021 documented in this encounter
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
--- OUTSIDE RECORDS SUMMARY | 2024-06-27 04:53 | XMS_ITS | Encounter Summary ---
Author Organization [facility] Address [address] [place] [address] Phone Care Team Providers Care Press Operator Automatic Name Role Phone Michelle Delcid MD Primary Care Provider [phone]- [phone] Reason for Visit * Reason Onset Date Comments Test Results 05/08/2022 Encounter Details Date Type Department Care Team (Late st Contact Info) Description 05/08/2022 Telephone [facility] Gastroenterology [address] [place] [address] Medical [address] [place] [address] May Shrestha, REJI Test Results Social History Tobacco Use Types Packs/Day Years [...] Telephone Encounter - May Shrestha RN - 05/08/2022 1:48 PM BARK GRINDER Called patients sister/ POA to discuss pathology results and MD recommendations at this time. POA verbalized understanding of these recommendations and has no further questions or concerns at this time. PPI rx sent to [place] [facility], [facility] per POA request. Reminder set for rpt EGD. ----- Message from Melody Lilly MD sent at 05/08/2022 8:40 AM BARK GRINDER ----- Please call patient and notify biopsy results being benign. No H pylori noted, repeat EGD in 6 months GRINDER GRINDER documented in this encounter Plan of Treatment Not on file documented as of this encounter Visit Diagnoses Not on filedocumented in this encounter Care Teams Press Operator Automatic Relationship Specialty Start Date End Date Michelle Delcid MD [address] [place] [id number] PCP - General Family Medicine 04/27/22 documented as of this encounter
--- OUTSIDE RECORDS SUMMARY | 2024-06-27 04:53 | XMS_ITS | Encounter Summary ---
Author Organization [facility] Healthcare Address [address] [place] [address] Care Team Providers Care Library Serials Assistant Name Role Phone Unavailable Primary Care Provider Unavailabl e Reason for Referral * Diagnostic Imaging (Routine) - Closed Specialty Diagnoses / Procedures Referred By Contac t Referred To Contact Diagnoses Alcoholic cirrhosis of liver with ascites (CMS/HCC) (HCC) Procedures US Abdomen Limited Romeo Mahoney MD [address] [address] Phone: tel: fax: [address] [phone] Referral ID Status Reason Start Date Expiration Date Visits Re quested Visits Authorized [id number] Closed 01/13/2021 02/12/2022 1 1 Reason for Visit * Diagnostic Imaging (Routine) - Closed Specialty Diagnoses / Procedures Referred By Contac t Referred To Contact Diagnoses Alcoholic cirrhosis of liver with ascites (CMS/HCC) (HCC) Procedures US Abdomen Limited Romeo Mahoney MD [address] [address] Phone: tel: fax: [address] [phone] Referral ID Status Reason Start Date Expiration Date Visits Re quested Visits Authorized [id number] Closed 01/13/2021 02/12/2022 1 1 Encounter Details Date Type Department Care Team (Latest Contact Info) Description 02/04/2021 9:59 AM CDT - 02/04/2021 11:59 PM CDT Hospital Encounter [address] [address] Alcoholic cirrhosis of liver with ascites (CMS/HCC) [...] a day 2700 mL 11 09/17/2020 2 pramipexole (MIRAPEX) 0.25 mg tabletIndications:Re stless Legs Syndrome Take 1 tablet (0.25 mg total) by mouth nightly 30 tablet 3 12/02/2020 1 tamsulosin (FLOMAX) 0.4 mg extended release capsule TAKE 1 CAPSULE BY MOUTH DAILY 30 capsule 5 12/09/2020 2 documented as of this encounter Discharge Disposition Disposition Code Departure Means Destination Discharge to home or self care documented in this encounter Plan of Treatment Not on file documented as of this encounter Procedures Procedure Name Priority Date/Time Associated Diagnosis Comments US ABDOMEN LIMITED Schedule Routine, Read Routine (OP Routine) 02/04/2021 10:38 AM CDT Alcoholic cirrhosis of liver with [...] Electronically signed by Josep Nassar M.D. AT D: ??02/04/2021 2:25 PM T: Report ID: [id number] Reading Location: ??[id number] Procedure Note Josep Nassar MD - 02/04/2021 [...] Josep Nassar M.D. AT T: Report ID: [id number] Reading Location: [place] [address] Romeo Mahoney MD IM US PROCEDURES Jasmin l Result documented in this encounter Visit Diagnoses Diagnosis Alcoholic cirrhosis of liver with ascites (CMS/HCC) (HCC) documented in this encounter
--- OUTSIDE RECORDS SUMMARY | 2024-06-27 04:53 | XMS_ITS | Encounter Summary ---
Author Organization [facility] Healthcare Address [address] [place] [address] Care Team Providers Care Tests Superintendent Name Role Phone Michelle Delcid MD Primary Care Provider +1- [phone] Reason for Visit * Auth/Cert (Routine) Specialty Diagnoses / Procedures Referred By Hoang leroy Referred To Contact Diagnoses Idiopathic esophageal varices without bleeding (CMS/HCC) (HCC) Idiopathic esophageal varices without bleeding (CMS/HCC) (HCC) [I85.00] Procedures ID ESOPHAGOGASTRODUODENOSCOPY TRANSORAL DIAGNOSTIC ESOPHAGOGASTRODUODENOSCOPY Referral ID Status Reason Start Date Expiration Date Visits Re quested Visits Authorized [id number] 1 1 Encounter Details Date Type Department Care Team (Late st Contact Info) Description 06/04/2023 11:30 AM COMMERCIAL LOAN PROCESSOR - 06/04/2023 12:00 PM COMMERCIAL LOAN PROCESSOR Surgery [facility] [place] [address] [facility] [address] [place] [address] Melody Lilly MD [address] [facility] [address] [place] [address] ESOPHAGOGASTRODUODENOSCOPY Surgery Details Date/Time Status Location OR Service Patient Class Case Class Case Type Trauma Case? 06/04/2023 11:30 AM Posted [facility] ENDOSCOPY ERCP 01 Gastroenterology Outpatient Elective Panel 1 Procedure LRB [...] Sign Reading Time Taken Comments Blood Pressure 130/81 06/04/2023 11:16 AM COMMERCIAL LOAN PROCESSOR Pulse 74 06/04/2023 11:16 AM COMMERCIAL LOAN PROCESSOR Temperature 36 ??C (96.8 ??F) 06/04/2023 11:16 AM COMMERCIAL LOAN PROCESSOR Respiratory Rate 16 06/04/2023 11:16 AM COMMERCIAL LOAN PROCESSOR Oxygen Saturation 98% 06/04/2023 11:16 AM COMMERCIAL LOAN PROCESSOR Inhaled Oxygen Concentration - - Weight 108.9 kg (240 lb) 06/04/2023 11:16 AM COMMERCIAL LOAN PROCESSOR Height 182.9 cm (6') 06/04/2023 11:16 AM COMMERCIAL LOAN PROCESSOR Body Mass Index 32.55 06/04/2023 11:16 AM COMMERCIAL LOAN PROCESSOR documented in this encounter Medications at Time [...] tablet (100 mg total) by mouth daily Provider, MD Crista Review of Systems A pertinent, focused review [...] planned procedure for the reasons stated above. ERCIAL LOAN PROCESSOR documented in this encounter Procedure Notes * Melody Lilly MD - 06/04/2023 12:17 PM CSTAssociated Order(s): EGD GI ENDOSCOPY [facility] Patient Name: Chester Dubose Procedure Date: 06/04/2023 12:17 PM Date of : 1970 Admit Type: Outpatient Age: 52 Gender: Male Attending MD: Melody Lilly M.D. Room: [facility] ENDOSCOPY ROOM 1 Note Status: Finalized Procedure: [...] following this procedure please call my office [phone]). After hours and evenings please call [phone] and speak to the GI fellow oncall [...] On: 06/04/2023 12:17 PM Recognized by the [employer] for promoting quality in endoscopy ERCIAL LOAN PROCESSOR documented in this encounter Plan of Treatment Not on file documented as of this encounter Procedures Procedure Name Priority Date/Time Associated Diagnosis Comments ESOPHAGOGASTRODUODENOSCOPY 06/04 12:38 PM COMMERCIAL LOAN PROCESSOR Idiopathic esophageal varices without bleeding (CMS/HCC) (HCC) EGD 06/04/2023 12:17 PM COMMERCIAL LOAN PROCESSOR documented in this encounter Results * EGD (06/04/2023 12:17 PM COMMERCIAL LOAN PROCESSOR) Anatomical Region Laterality Modality Other Narrative Procedure Note Melody Lilly MD - 06/04/2023 12:17 PM CST GI ENDOSCOPY [facility] Patient Name: Chester Dubose Procedure Date: 06/04/2023 12:17PM Date of : 1970 Admit Type: Outpatient Age: 52 Gender: Male Attending MD: Melody Lilly M.D. Room: [facility] ENDOSCOPY ROOM 1 Note Status: Finalized Procedure: [...] Repeat EGD in one year for surveillance, (mary if decompensation in 6 months) - The findings and recommendations were discussedwith the patient. - In the unusual situation that you developabdominal pain, bleeding or other significant problems inthe days following this procedure please call my office [phone]). After hours and eveningsplease call [phone] and speak to the GI fellow oncall [...] On: 06/04/2023 12:17 PM Recognized by the [employer] for promoting quality in endoscopy Melody Lilly MD ENDOSCOPY PROCEDURES F inal Result documented in this encounter Visit Diagnoses Diagnosis Esophageal varices (HCC)- Primary Esophageal varices without mention of bleeding Idiopathic esophageal varices without bleeding (CMS/HCC) (HCC) documented in this encounter Admitting [...] at 1145 Rate/Dose Verify 06/04/2023 12:37 PM COMMERCIAL LOAN PROCESSOR 30 mL/hr New Bag 06/04/2023 11:22 AM COMMERCIAL LOAN PROCESSOR 30 mL/hr 30 mL/hr documented in this encounter Discontinued Medications Medication Sig Discontinue Reason Start Date End Da te pantoprazole DR (PROTONIX) 40 mg EC tablet Take 1 tablet (40 mg total) by mouth daily Stop Taking at Discharge 05/08/2022 06/04/2023 documented as of this encounter Active and Recently Administered Medications Times are shown in COMMERCIAL LOAN PROCESSOR. Continuous Medication Order 06/02/2023 06/03/2023 06/04/2023 sodium [...] 06/04/2023 documented in this encounter Care Teams Tests Superintendent Relationship Specialty Start Date End Date Michelle Delcid MD [address] [place] [address] PCP - General Family Medicine 04/27/22 documented as of this encounter
--- OUTSIDE RECORDS SUMMARY | 2024-06-27 04:53 | XMS_ITS | Encounter Summary ---
Author Organization [facility] Address [address] [place] [address] Phone Care Team Providers Care Navy Material Inspector Name Role Phone Unavailable Primary Care Provider Unavailabl e Encounter Details Date Type Department Care Team (Late st Contact Info) Description 10/08/2020 Telephone [facility] [address] [facility] 8th [place] [address] [place] [address] Bibi Greene, RN Social History Tobacco Use Types Packs/Day [...] Telephone Encounter - Bibi Greene RN - 10/08/2020 8:50 AM CDT I called and relayed the results to Chester. He was appreciative of the information. ----- Message from Romeo Mahoney MD sent at 10/07/2020 4:27 PM CDT ----- I suspect he already knows, but there was no ascites. documented in this encounter Plan of Treatment Not on file documented as of this encounter Visit Diagnoses Not on filedocumented in this encounter Additional Health Concerns Infection Onset Date Last Indicated Resolved Time 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
--- OUTSIDE RECORDS SUMMARY | 2024-06-27 04:53 | XMS_ITS | Encounter Summary ---
Author Organization [facility] Address [address] [place] [address] Phone Care Team Providers Care Quotation Checker Name Role Phone Michelle Delcid MD Primary Care Provider +1- [phone] Encounter Details Date Type Department Care Team (Late st Contact Info) Description 05/29/2023 Telephone [facility] Gastroenterology [address] [facility] 12th [place] [address] [place] [address] Bibi Greene RN Social History [...] 2 06/20/2021 Personal Safety Answer Date Recorded Getting School Help Needed Denies 05/29 Sex and Gender Information Value Date Recorded Sex Assigned at Not on file Legal Sex Male 8:48 AM CDT Gender Identity Not on file Sexual Orientation Not on file documented as of this encounter Miscellaneous Notes * Telephone Encounter - Bibi Greene RN - 05/29/2023 3:38 PM CST Sarah Briggs will complete labs when he comes for his EGD on 06/04 [facility] documented in this encounter Plan of Treatment Not on file documented as of this encounter Visit Diagnoses Not on filedocumented in this encounter Care Teams Quotation Checker Relationship Specialty Start Date End Date Michelle Delcid MD [address] [place] [address] PCP - General Family Medicine 04/27/22 documented as of this encounter
--- OUTSIDE RECORDS SUMMARY | 2024-06-27 04:53 | XMS_ITS | Encounter Summary ---
Author Organization [facility] Address [address] [place] [address] Phone Care Team Providers Care Job Checker Name Role Phone Michelle Delcid MD Primary Care Provider +1- [phone] Reason for Visit * Reason Onset Date Comments call back 10/16/2022 Encounter Details Date Type Department Care Team (Late st Contact Info) Description 10/16/2022 Telephone [facility] Gastroenterology [address] [place] [address] Medical Office [address], [address] [place] [address] Yaneth Ramon, RN call back Social History Tobacco Use Types Packs/Day Years [...] encounter Miscellaneous Notes * Telephone Encounter - Yaneth Ramon RN - 10/16/2022 12:47 PM CDT Returned the patient's sister's call and confirmed the patient's time, date, and location of his procedure this Sunday. She verbalized understanding and will call back with any other questions or concerns. documented in this encounter Plan of Treatment Not on file documented as of this encounter Visit Diagnoses Not on filedocumented in this encounter Care Teams Job Checker Relationship Specialty Start Date End Date Michelle Delcid MD [address] [place] [address] PCP - General Family Medicine 04/27/22 documented as of this encounter
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
--- OUTSIDE RECORDS SUMMARY | 2024-06-27 04:53 | XMS_ITS | Encounter Summary ---
Author Organization [facility] Address [address] [place] [address] Phone Care Team Providers Care Pc Technician Name Role Phone Unavailable Primary Care Provider Unavailabl e Encounter Details Date Type Department Care Team (Late st Contact Info) Description 10/07/2020 Orders Only [facility] Scanning, Provider Social History Tobacco Use Types Packs/Day Years [...] Procedure Name Priority Date/Time Associated Diagnosis Comments SCAN - RADIOLOGY/IMAGING 10/07/2020 documented in this encounter Results * SCAN - RADIOLOGY/IMAGING (10/07/2020) Anatomical Region Laterality Modality Other us Provider Scanning Final Result documented in this encounter Visit Diagnoses Not on filedocumented in this encounter Additional Health Concerns Infection Onset Date Last Indicated Resolved Time 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
--- OUTSIDE RECORDS SUMMARY | 2024-06-27 04:53 | XMS_ITS | Encounter Summary ---
Author Organization [facility] Healthcare Address [address] [place] [address] Care Team Providers Care Linter Saw Sharpener Name Role Phone Unavailable Primary Care Provider Unavailabl e Encounter Details Date Type Department Care Team (Late st Contact Info) Description 03/02/2022 5:25 PM CDT Lab [facility] Advanced Medicine [facility] Advanced Medicine ([facility]) [address] [place] [phone] Alcoholic cirrhosis of liver with ascites (CMS/HCC) (HCC) Social History Tobacco Use [...] Priority Date/Time Associated Diagnosis Comments EGFR Routine 03/02/2022 5:19 PM CDT Alcoholic cirrhosis of liver with ascites (CMS/HCC) (HCC) USYOE-3-BJVQZHQNSFR, TUMOR MARKER Routine 03/02/2022 5:19 PM CDT Alcoholic cirrhosis of liver with ascites (CMS/HCC) (HCC) PROTIME-INR Routine 03/02/2022 5:19 PM CDT Alcoholic cirrhosis of liver with ascites (CMS/HCC) (HCC) CBC WITHOUT DIFFERENTIAL Routine 03/02/2022 5:19 PM CDT Alcoholic cirrhosis of liver with ascites (CMS/HCC) (HCC) COMPREHENSIVE METABOLIC PANEL Routine 03/02/2022 5:19 PM CDT Alcoholic cirrhosis of liver with ascites (CMS/HCC) (HCC) documented in this encounter Results * eGFR (03/02/2022 5:19 PM CDT) eGFR >90 90 - 130 mL/min/1. 73 m2 [facility] Comment: Interpretive Data Reference Interval Normal ?>/= [...] of Race in Diagnosing Kidney Disease, JASN 2021). The CKD-EPI equation should not be used for patients with unstable renal function and has not been validated in children and those over 70. Current interpretive data was last reviewed 2021. Blood 03/02/2022 5:19 PM CDT 03/02/2022 6:08 PM CDT Romeo Mahoney MD LAB BLOOD ORDERABLES F inal Result [facility] Department [place] [address] * (ABNORMAL) Comprehensive metabolic panel (03/02/2022 5:19 PM CDT) Sodium 142 135 - 145 mmol/L [facility] Potassium, pl 4.0 3.3 - 4.9 mmol/L [facility] Chloride 110 97 - 110 mmol/L [facility] CO2 26 22 - 32 mmol/L [facility] Anion gap 6 2 - 15 mmol/L [facility] BUN 8 8 - 25 mg/dL [facility] Creatinine 0.69(L) 0.80 - 1.30 mg/dL [facility] Glucose 111 70 - 199 mg/dL [facility] Comment: Interpretive Data Fasting glucose >/= [...] 2017. Calcium 8.9 8.5 - 10.3 mg/dL [facility] Bilirubin, total 0.6 0.1 - 1.2 mg/dL [facility] Protein, pl 6.9 6.5 - 8.5 g/dL [facility] Albumin 3.6 3.5 - 5.0 g/dL [facility] Alk phos 166(H) 40 - 130 Units/L [facility] ALT 20 7 - 55 Units/L [facility] AST 42 10 - 50 Units/L [facility] Blood 03/02/2022 5:19 PM CDT 03/02/2022 6:08 PM CDT Romeo Mahoney MD LAB BLOOD ORDERABLES F inal Result Performing Organization Address City/[facility] Co de Phone Number [facility] Department [place] [address] * (ABNORMAL) CBC without differential (03/02/2022 5:19 PM CDT) Pathologist [facility] WBC 4.7 3.8 - 9.9 K/cumm [facility] Hgb 13.0 13.0 - 17.5 g/dL [facility] Hct 37.6(L) 38.9 - 50.3 % [facility] Plt 80(L) 150 - 400 K/cumm [facility] MPV 10.2 9.1 - 12.3 fL [facility] RBC 4.11(L) 4.30 - 5.80 M/cumm [facility] MCV 91.5 81.3 - 96.4 fL [facility] MCH 31.6 27.1 - 33.3 pg [facility] MCHC 34.6 32.3 - 35.7 g/dL [facility] RDW CV 14.6 11.1 - 14.9 % [facility] RDW SD 48.4(H) 35.7 - 48.1 fL [facility] NRBC abs 0.00 0.00 - 0.01 K/cumm [facility] Blood 03/02/2022 5:19 PM CDT 03/02/2022 6:08 PM CDT Romeo Mahoney MD LAB BLOOD ORDERABLES F inal Result Performing Organization Address [facility]/ZIP Co de Phone Number [facility] Department [place] [address] * (ABNORMAL) Protime-INR (03/02/2022 5:19 PM CDT) Pathologist [facility] PT 15.1(H) 9.2 - 13.5 sec [facility] INR 1.4(H) 0.9 - 1.2 [facility] Comment: Interpretive data Oral anticoagulant therapeutic ranges: Venous thromboembolism prophylaxis or treatment: 2.0-3.0 CARDIOLOGY Standard range: 2.0-3.0 High-intensity range: 2.5-3.5 Refer to indication-specific guidelines for appropriate target ranges for prosthetic heart valve replacement. Current interpretive data was last revised on 2019. Blood 03/02/2022 5:19 PM CDT 03/02/2022 6:15 PM CDT Romeo Mahoney MD LAB BLOOD ORDERABLES F inal Result [facility] [place] [address] * [id number], Tumor Marker (03/02/2022 5:19 PM CDT) [facility] alpha Fetoprotein 2.6 <=8.3 ng/mL [facility] Comment: Interpretive Data The [employer] AFP [...] year ?0.0 ? 8.3 ng/ml References Sharon Bowen et al. ??J. Ped Surg 1978;13:155-156 Amaya Luke. et al. Clin Chem Lab Med 2018;57:783-797 Fide V. et al. ??Clin Chem 2014;2760-3151. Current interpretive data was last revised 2022. Blood 03/02/2022 5:19 PM CDT 03/02/2022 6:08 PM CDT us Romeo Mahoney MD LAB BLOOD ORDERABLES F inal Result Performing Organization Address City/State/[facility] Co de Phone Number [facility] [place] [address] documented in this encounter Visit Diagnoses Diagnosis Alcoholic cirrhosis of liver with ascites (CMS/HCC) (HCC) documented in this encounter
--- OUTSIDE RECORDS SUMMARY | 2024-06-27 04:53 | XMS_ITS | Encounter Summary ---
Author Organization [facility] Address [address] [place] [address] Phone Care Team Providers Care Coin Machine Mechanic Name Role Phone Michelle Delcid MD Primary Care Provider +1- [phone] Encounter Details Date Type Department Care Team (Late st Contact Info) Description 05/29/2023 Orders Only [facility] Gastroenterology [address] [facility] [facility] 12th [place] [address] [place] [address] Bibi Greene RN Social History [...] on filedocumented in this encounter Care Teams Coin Machine Mechanic Relationship Specialty Start Date End Date Michelle Delcid MD [address] [place] [id number] PCP - General Family Medicine 04/27/22 documented as of this encounter
--- OUTSIDE RECORDS SUMMARY | 2024-06-27 04:53 | XMS_ITS | Encounter Summary ---
Author Organization [facility] Healthcare Address [address] [place] [address] Care Team Providers Care Editor Managing Newspaper Name Role Phone Michelle Delcid MD Primary Care Provider [phone]- [phone] Reason for Visit * Auth/Cert Specialty Diagnoses / Procedures Referred By Hoang t Referred To Contact Diagnoses Hepatic cirrhosis, unspecified hepatic cirrhosis type, unspecified whether ascites present (HCC) Hepatic cirrhosis, unspecified hepatic cirrhosis type, unspecified whether ascites present (HCC) [K74.60] Procedures AK EGD BAND LIGATION ESOPHGEAL/GASTRIC VARICES ESOPHAGOGASTRODUODENOSCOPY Referral ID Status Reason Start Date Expiration Date Visits Re quested Visits Authorized [id number] 1 1 Encounter Details Date Type Department Care Team (Latest Contact Info) Description 05/04/2022 8:26 AM SUPPORT REPRESENTATIVE - 05/04/2022 10:50 AM [facility] Hospital Encounter [facility] [address] [facility] [address] [place] [address] Melody Lilly MD [address] [facility] [address] [place] [address] Hepatic cirrhosis, unspecified hepatic cirrhosis type, unspecified whether ascites present (HCC) Discharge Disposition: Discharge to home or [...] Sign Reading Time Taken Comments Blood Pressure 148/84 05/04/2022 10:23 AM SUPPORT REPRESENTATIVE Pulse 79 05/04/2022 10:23 AM SUPPORT REPRESENTATIVE Temperature 36 ??C (96.8 ??F) 05/04/2022 9:53 AM SUPPORT REPRESENTATIVE Respiratory Rate 15 05/04/2022 10:23 AM SUPPORT REPRESENTATIVE Oxygen Saturation 94% 05/04/2022 10:23 AM SUPPORT REPRESENTATIVE Inhaled Oxygen Concentration - - Weight 95.3 kg (210 lb) 05/04/2022 8:43 AM SUPPORT REPRESENTATIVE Height 182.9 cm (6') 05/04/2022 8:43 AM SUPPORT REPRESENTATIVE Body Mass Index 28.48 05/04/2022 8:43 AM SUPPORT REPRESENTATIVE documented in this encounter Medications at Time [...] (HCC) Depression Infectious viral hepatitis Substance abuse ([facility]) (HCC) Suicide attempt ([facility]) ([facility]) Past Surgical History: Procedure Laterality Date ESOPHAGOGASTRODUODENOSCOPY [...] planned procedure for the reasons stated above. ORT REPRESENTATIVE documented in this encounter Procedure Notes * Melody Lilly MD - 05/04/2022 9:16 AM CSTAssociated Order(s): EGD GI ENDOSCOPY [facility] Patient Name: Jared Brumfield Procedure Date: 05/04/2022 9:16 AM Date of : 1970 Admit Type: Outpatient Age: 51 Gender: Male Attending MD: Melody Lilly M.D. Room: [facility] ENDOSCOPY ROOM 2 Note Status: Finalized [...] to the patient. -FU with Dr Mahoney -LIANA Path, -Avoid NSAIDs and stop smoking. Complete abstinence from ETOH PPI once a day Repeat EGD in 6 months to see if varices enlarges and need banding (He has no surveillance post banding for a while) -YURI pt Attending Participation: I personally performed the entire procedure. Electronically signed by Melody Lilly MD Melody Lilly M.D. 05/04/2022 10:15:42 AM . Number of Addenda: 0 Note Initiated On: 05/04/2022 9:16 AM Recognized by the [employer] for promoting quality in endoscopy ORT REPRESENTATIVE documented in this encounter Miscellaneous Notes * Result Encounter Note - Melody Lilly MD - 05/04/2022 10:50 AM SUPPORT REPRESENTATIVE Please call patient and notify biopsy results being benign. No H pylori noted, repeat EGD in 6 months ORT REPRESENTATIVE documented in this encounter Plan of Treatment Not on file documented as of this encounter Procedures Procedure Name Priority Date/Time Associated Diagnosis Comments SURGICAL PATHOLOGY Routine 05/04/2022 9:42 AM SUPPORT REPRESENTATIVE Hepatic cirrhosis, unspecified hepatic cirrhosis type, unspecified whether ascites present (HCC) ESOPHAGOGASTRODUODENOSCOPY BIOPSY 05/04/2022 9:27 AM SUPPORT REPRESENTATIVE Hepatic cirrhosis, unspecified hepatic cirrhosis type, unspecified whether ascites present (HCC) Special Needs variceal banding if needed EGD 05/04/2022 9:16 AM SUPPORT REPRESENTATIVE documented in this encounter Results * Surgical pathology (05/04/2022 9:42 AM SUPPORT REPRESENTATIVE) Tissue (Gastric/Stomach biopsy) 05/04/2022 9:42 AM SUPPORT REPRESENTATIVE Narrative PATHOLOGY [facility] - 05/05/2022 11:16 AM SUPPORT REPRESENTATIVE EPIC results best viewed via link to PDF [facility] [place] [address] Note to Patients: This report may contain [...] Gender: ??M : ??1970 (Age: 51) Address: ??[address] [place] [address] Hospital #: ??[id number] Taken:05/04/2022 Received:05/04/2022 Reported: 05/05/2022 Patient Type: [facility] SDS ?? Service: Gastroenterology Location: Physician(s): ??Melody Lilly M.D. Michelle Delcid M.D. Romeo Mahoney M.D. Diagnosis: Stomach, biopsy ? - Antral and oxyntic gland mucosa with rare moderately dilated intramucosal capillary vessels, other no significant histopathologic abnormality ? - No H. pylori-like microorganisms identified (H&E) b/05/05/2022 11:16 By this signature, I attest that [...] Surgical Pathology and Flow Cytometry Departments at [facility] as part of an ongoing quality control associate program and in compliance with federally mandated [...] Surgical Pathology and Flow Cytometry Departments of [facility]. ??It has not been cleared or approved by the U. S. Food and Drug Administration. IMAGES AND SCANNED DOCUMENTS, IF INCLUDED, ONLY VIEWABLE IN PDF VERSION OF REPORT Melody Lilly MD LAB PATHOLOGY ORDERABL ES Final Result PATHOLOGY [facility] 3rd Floor [place], [place] [phone] * EGD (05/04/2022 9:16 AM SUPPORT REPRESENTATIVE) Anatomical Region Laterality Modality Other Narrative Procedure Note Melody Lilly MD - 05/04/2022 9:16 AM CST GI ENDOSCOPY [facility] Patient Name: Jared Brumfield Procedure Date: 05/04/2022 9:16 AM Date of : 1970 Admit Type: Outpatient Age: 51 Gender: Male Attending MD: Melody Lilly M.D. Room: [facility] ENDOSCOPY ROOM 2 Note Status: Finalized [...] to thepatient. -FU with Dr Mahoney -LIANA Path, -Avoid NSAIDs and stop smoking. Complete [...] On: 05/04/2022 9:16 AM Recognized by the [employer] for promoting quality in endoscopy us Melody Lilly MD ENDOSCOPY PROCEDURES F [...] Pre-Procedure (GI) Rate/Dose Verify 05/04/2022 9:26 AM SUPPORT REPRESENTATIVE 30 mL/hr New Bag 05/04/2022 8:44 AM SUPPORT REPRESENTATIVE 30 mL/hr 30 mL/hr documented in this [...] Recently Administered Medications Times are shown in SUPPORT REPRESENTATIVE. Continuous Medication Order 05/02/2022 05/03/2022 05/04/2022 sodium [...] 05/04/2022 documented in this encounter Care Teams Editor Managing Newspaper Relationship Specialty Start Date End Date Michelle Delcid MD [address] [place] [phone] PCP - General Family Medicine 04/27/22 documented as of this encounter
--- OUTSIDE RECORDS SUMMARY | 2024-06-27 04:53 | XMS_ITS | Encounter Summary ---
Author Organization [facility] Address [address] [place] [address] Phone Care Team Providers Care Teaching Music Lessons Name Role Phone Unavailable Primary Care Provider Unavailabl e Encounter Details Date Type Department Care Team (Late st Contact Info) Description 09/20/2021 Orders Only [facility] Gastroenterology [address] [facility] 8th [place] [address] [place] [phone] Bibi Greene, REJI Social History Tobacco Use [...]
--- OUTSIDE RECORDS SUMMARY | 2024-06-27 04:54 | XMS_ITS | Encounter Summary ---
Author Organization [facility] Healthcare Address [address] [place] [address] Care Team Providers Care Retail Special Event Associate Name Role Phone Unavailable Primary Care Provider Unavailabl e Reason for Referral * Diagnostic Imaging (Routine) - Closed Specialty Diagnoses / Procedures Referred By Contac t Referred To Contact Diagnoses Chronic right shoulder pain Procedures XR Shoulder Right 2 or More Views Emir Crawford MD [address] [place] [address] Phone: tel: fax: [address] [phone] Referral ID Status Reason Start Date Expiration Date Visits Re quested Visits Authorized [id number] Closed 05/27/2020 06/26/2021 1 1 ICAL CONSULTANT Encounter Details Date Type Department Care Team (Latest Contact Info) Description 06/03/2020 3:41 PM SURGICAL CONSULTANT Hospital Encounter [facility] OP INTERIM Emir Crawford MD [address] [place], [place] [id number] Chronic right shoulder pain Social History Tobacco Use Types Packs/Day Years Used Date Smoking Tobacco: Former Cigarettes 1 40 1 - 03/2020 Smokeless Tobacco: Former Alcohol Use Standard Drinks/Week Comments Not Currently 0 (1 standard drink = 0.6 oz pure alcohol) previously heavy drinker. Last drink 12/2019 PHQ-2 Answer Date Recorded PHQ-2 Total Score (If total score is 3 or more points, staff should administer the PHQ-9) 4 05/27/2020 Sex and Gender Information Value Date Recorded Sex Assigned at Not on file Legal Sex Male 8:48 AM CDT Gender Identity Not on file Sexual Orientation Not on file documented as of this encounter Medications at Time of Discharge multivitamin capsule Take 1 capsule by mouth daily acetaminophen 500 mg capsule Take 1 capsule (500 mg total) by mouth every 6 (six) hours as needed for pain 30 tablet 02/25/2019 06/20/2021 famotidine (PEPCID) 20 mg tablet Take 20 mg by mouth 2 (two) times a day 09/16/2020 folic acid (FOLVITE) 1 mg tabletIndications :Alcoholic cirrhosis of liver with ascites (CMS/HCC) (HCC) Take 1 tablet (1 mg total) by mouth daily 30 tablet 3 03/03/2019 09/16/2020 lactulose 0.67 gram/mL solution Take 30 mL (20 g total) by mouth 3 (three) times a day 2700 mL 11 04/08/2020 09/10/2020 tamsulosin (FLOMAX) 0.4 mg extended release capsule Take 0.4 mg by mouth daily 12/25/2019 09/16/2020 Xifaxan 550 mg tablet Take 1 tablet (550 mg total) by mouth 2 (two) times a day 60 tablet 11 04/08/2020 09/10/2020 documented as of this encounter Plan of Treatment Not on file documented as of this encounter Procedures Procedure Name Priority Date/Time Associated Diagnosis Comments XR SHOULDER RIGHT 2 OR MORE VIEWS Schedule Routine, Read Routine (OP Routine) 06/03/2020 3:43 PM SURGICAL CONSULTANT Chronic right shoulder pain documented in this encounter Results * XR Shoulder Right 2 or More Views (06/03/2020 3:43 PM SURGICAL CONSULTANT) Anatomical Region Laterality Modality Upper Extremities, Shoulder Right Radi ographic Imaging 06/04/2020 12:3 8 PM SURGICAL CONSULTANT Narrative 06/04/2020 12:40 PM SURGICAL CONSULTANT Patient Name: CHESTER BRUMFIELD Eddie GALVAN ?Ordering Dr: Emir Crawford MD ?? D.O.B: 1970 ? Exam Date: 06/03/ ?? 1543 ?? Age: 49 ?Sex: Male ? MR#: [id number] ?? Loc: ? RADIOLOGY REPORT ?? Order #[id number] ?? Radiology ? Shoulder RT 2Vw Min (STANDARD) ? Signed ?? EXAM DESCRIPTION: ?? Shoulder RT 2Vw Min (STANDARD) ? REASON FOR STUDY: ?? POPS OUT OF SOCKET. BEEN HAPPENING FOR 4-5 YEARS NOW ? TECHNIQUE: ?? Internal rotation, external rotation, and scapular Y views of the ?? right shoulder were obtained. ? COMPARISON: ?? Prior exam 08/14/2019 ? FINDINGS: ? BONES/JOINTS: ??Normal mineralization. ??No acute fracture or dislocation. ? Glenohumeral joint is maintained. ??No Hill-Sachs deformity is suggested or ?? evidence of Bankart fracture. ? SOFT TISSUES: ??Unremarkable. ? VISUALIZED RIBS AND LUNG: ??No significant finding. ? OTHER: ??No significant finding. ? IMPRESSION: ?? No acute osseous abnormality. ? THIS IS AN ELECTRONICALLY VERIFIED FINAL REPORT ?? 06/04/2020 12:40 PM - Electronically signed by Kenyon Mullen M.D. ?? Kenyon Mullen M.D. ? MJ ?? D: ??06/04/2020 12:40 PM ?? T: ? Report ID: [id number] ?? Reading Location: ??[id number] ? REPORT ELECTRONICALLY SIGNED IN OTHER VENDOR SYSTEM ?? Resulting Agency Comment O Procedure Note Kenyon Mullen MD - 06/04/2020 Patient Name: CHESTER BRUMFIELD JROrdering Dr: Emir Crawford MD DDenisO.B: 1970 Exam Date: 06/03/20 1543 Age: 49 Sex: Male MR#: [id number] Loc: RADIOLOGY REPORT Order #[id number] Radiology Shoulder RT 2Vw Min (STANDARD) Signed EXAM DESCRIPTION: Shoulder RT 2Vw Min (STANDARD) REASON FOR STUDY: POPS OUT OF SOCKET. BEEN HAPPENING FOR 4-5 YEARS NOW TECHNIQUE: Internal rotation, external rotation, and scapular Y viewsof the right shoulder were obtained. COMPARISON: Prior exam 08/14/2019 FINDINGS: BONES/JOINTS: Normal mineralization. No acute fracture or dislocation. Glenohumeral joint is maintained. No Hill-Sachs deformity is suggestedor evidence of Bankart fracture. SOFT TISSUES: Unremarkable. VISUALIZED RIBS AND LUNG: No significant finding. OTHER: No significant finding. IMPRESSION: No acute osseous abnormality. THIS IS AN ELECTRONICALLY VERIFIED FINAL REPORT 06/04/2020 12:40 PM - Electronically signed by Kenyon Mckeonin M.D. 

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
--- OUTSIDE RECORDS SUMMARY | 2024-06-27 04:54 | XMS_ITS | Encounter Summary ---
Author Organization [facility] Address [address] [place] [address] Phone Care Team Providers Care Cut Lace Machine Operator Name Role Phone Unavailable Primary Care Provider Unavailabl e Reason for Referral * Diagnostic Imaging (Routine) - Closed Specialty Diagnoses / Procedures Referred By Contaguilar t Referred To Contact Diagnoses Alcoholic cirrhosis of liver with ascites (CMS/HCC) (HCC) Procedures US Abdomen Limited Romeo Mahoney MD [address] [facility] [address] [place] [address] Phone: tel: fax: [address] [address] Referral ID Status Reason Start Date Expiration Date Visits Re quested Visits Authorized [id number] Closed 06/29/2020 07/29/2021 1 1 RETREADER Reason for Visit * Reason Onset Date Comments Schedule Ultrasound 06/28/2020 Encounter Details Date Type Department Care Team (Late st Contact Info) Description 06/28/2020 Telephone [facility] Gastroenterology [address] [place] [address] 8th [place] [address] [place] [address] Henrietta Thomas Schedule Ultrasound Social [...] * Telephone Encounter - Henrietta Thomas - 06/29/2020 12:19 PM CST I spoke with Chester and have him scheduled at [facility] on 07.06.2020 at 12:15pm. He is awre to fast for 6 hours prior. I am also mailing him an appt remninder. RETREADER * Telephone Encounter - Henrietta Thomas - 06/28/2020 2:07 PM CST I called Chester at [phone], I was unable to reach him. I LMOR for a return call. ----- Message from Bibi Greene RN sent at 04/12/2020 9:38 AM CDT ----- Regarding: ultrasound of liver for HCC screen [facility] patient needs ultrasound of liver for hCC screen. RETREADER RETREADER documented in this encounter Plan of Treatment Not on file documented as of this encounter Results * US Abdomen Limited (07/06/2020 11:54 AM TYRE RETREADER) Anatomical Region Laterality Modality Abdomen N/A Ultrasound 07/06/2020 3:54 PM TYRE RETREADER Narrative 07/06/2020 3:59 PM TYRE RETREADER Patient Name: CHESTER BRUMFIELD JR ?Ordering Dr: Romeo Mahoney MD ?? D.O.B: 1970 ? Exam Date: 07/06/20 ?? 1154 ?? Age: 50 ?Sex: Male ? MR#: [id number] ?? Loc: ? RADIOLOGY REPORT ?? Order #[id number] ?? Ultrasound ? US Abdomen/Lmt Exam Spec Organ ? Signed ?? EXAM DESCRIPTION: ?? US Abdomen/Lmt Exam Spec Organ ? REASON FOR STUDY: ?? Alcoholic cirrhosis. ??Abdominal ascites. ? TECHNIQUE: ??Ultrasound of the right upper quadrant of the abdomen was ?? performed with grayscale and color doppler. ? COMPARISON: ?? CT abdomen and pelvis 12/30/2019 ? FINDINGS: ?LIVER: Nodular contour of the liver. ??Heterogeneous and coarsened echotexture ?? of the liver. ??No focal liver lesions identified by ultrasound. ??There is a ?? hepatofugal flow in the portal vein. ??No significant ascites identified. ? GALLBLADDER: Cholelithiasis. ??No gallbladder wall thickening or focal ?? pericholecystic fluid. ??The sonographic Anders sign is negative. ? BILIARY: There is no intrahepatic or extrahepatic biliary ductal dilation. The ?? common bile duct measures 6 mm in diameter. ? RIGHT KIDNEY: The right kidney measures 12.3 cm in length. Right renal ?? cortical thickness and echogenicity are normal. ??There is no right ?? hydronephrosis. ? PANCREAS: Pancreas is obscured by overlying bowel contents. ? IMPRESSION: ? 1. ??Hepatic cirrhosis. ? 2. ??Evidence of portal hypertension with hepatofugal flow in the main portal ?? vein. ? 3. ??No significant right upper quadrant ascites identified. ? 4. ??Cholelithiasis. ? THIS IS AN ELECTRONICALLY VERIFIED FINAL REPORT ?? 07/06/2020 3:59 PM - Electronically signed by Mendoza Chand M.D. ?? Mendoza Chand M.D. ? DI ?? D: ??07/06/2020 3:59 PM ?? T: ? Report ID: [id number] ?? Reading Location: ??[id number] ? REPORT ELECTRONICALLY SIGNED IN OTHER VENDOR SYSTEM ?? Resulting Agency Comment O Procedure Note Mendoza Chand MD - 07/06/2020 Patient Name: CHESTER BRUMFIELD Dr: Romeo Mahoney MD D.O.B: 1970 Exam Date: 07/06/20 1154 Age: 50 Sex: Male MR#: [id number] Loc: [facility]#: [id number] RADIOLOGY REPORT Order #[id number] Ultrasound US Abdomen/Lmt Exam Spec Organ Signed EXAM DESCRIPTION: US Abdomen/Lmt Exam Spec Organ REASON FOR STUDY: Alcoholic cirrhosis. Abdominal ascites. TECHNIQUE: Ultrasound of the right upper quadrant of the abdomen was performed with grayscale and color doppler. COMPARISON: CT abdomen and pelvis 12/30/2019 FINDINGS: LIVER: Nodular contour of the liver. Heterogeneous and coarsenedechotexture of the liver. No focal liver lesions identified by ultrasound. There justice hepatofugal flow in the portal vein. No significant ascites identified. GALLBLADDER: Cholelithiasis. No gallbladder wall thickening or focal pericholecystic fluid. The sonographic Anders sign is negative. BILIARY: There is no intrahepatic or extrahepatic biliary ductaldilation. The common bile duct measures 6 mm in diameter. RIGHT KIDNEY: The right kidney measures 12.3 cm in length. Right renal cortical thickness and echogenicity are normal. There is no right hydronephrosis. PANCREAS: Pancreas is obscured by overlying bowel contents. IMPRESSION: 1. Hepatic cirrhosis. 2. Evidence of portal hypertension with hepatofugal flow in the mainportal vein. 3. No significant right upper quadrant ascites identified. 4. Cholelithiasis. 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
--- OUTSIDE RECORDS SUMMARY | 2024-06-27 04:54 | XMS_ITS | Encounter Summary ---
Author Organization [facility] Medical Group Address [address] [address] Care Team Providers Care Computer Engineering Technologist Name Role Phone Unavailable Primary Care Provider Unavailabl e Reason for Visit * Reason Onset Date Comments Test results and referral 06/04/2020 Encounter Details Date Type Department Care Team ([facility] Contact Info) Description 06/04/[address] [facility] Medical [facility] Primary Care [address] [place] [address] Emir Crawford MD [address] [place] [address] Test results and referral Social History Tobacco Use Types Packs/Day Years [...] encounter Miscellaneous Notes * Telephone Encounter - Kylee Demarco MA - 06/04/2020 1:48 PM CST Pt advised of test results. Referral sent to Ortho. CARRIER INSPECTOR * Telephone Encounter - Kylee Demarco MA - 06/04/2020 1:47 PM CST ----- Message from Emir Crawford MD sent at 06/04/2020 1:00 PM AIR CARRIER INSPECTOR ----- No osseous abnormality right shoulder. Would refer to Dr. Birch for evaluation. 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
--- OUTSIDE RECORDS SUMMARY | 2024-06-27 04:54 | XMS_ITS | Encounter Summary ---
Author Organization [facility] Address [address] [place] [address] Phone Care Team Providers Care Gluer And Slicer Hand Name Role Phone Unavailable Primary Care Provider Unavailabl e Encounter Details Date Type Department Care Team (Late st Contact Info) Description 09/17/2020 Orders Only [facility] Gastroenterology [address] 8th [place] [address] [place] [id number] Bibi Greene, REJI Hepatic encephalopathy (CMS/HCC) Social History Tobacco Use Types Packs/Day [...] Start Date End Date lactulose 0.67 gram/mL solutionIndications: Hepatic encephalopathy (HCC) Take 30 mL (20 g total) by mouth 3 (three) times a day 2700 mL 11 09/17/2020 03/09/202 2 Xifaxan 550 mg tabletIndications:He patic encephalopathy (HCC) Take 1 tablet (550 mg total) by mouth 2 (two) times a day 60 tablet 11 09/17/2020 2 documented in this encounter Plan of Treatment Not on file documented as of this encounter Visit Diagnoses Diagnosis Hepatic encephalopathy (HCC) Hepatic encephalopathy documented in this encounter Discontinued Medications Medication Sig Discontinue Reason Start Date End Da te Xifaxan 550 mg tabletIndications:Hepatic encephalopathy (HCC) Take 1 tablet (550 mg total) by mouth 2 (two) times a day Reorder 09/10/2020 09/17/2020 lactulose 0.67 gram/mL solutionIndications:Hepati c encephalopathy (HCC) Take 30 mL (20 g total) by mouth 3 (three) times a day Reorder 09/10/2020 09/17/2020 documented as of this encounter Additional Health Concerns Infection Onset Date Last Indicated Resolved Time 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
--- OUTSIDE RECORDS SUMMARY | 2024-06-27 04:54 | XMS_ITS | Encounter Summary ---
Author Organization [facility] Address [address] [place] [address] Care Team Providers Care Software Client Architect Name Role Phone No, Physician Primary Care Provider [phone] Encounter Details Date Type Department Care Team (Late st Contact Info) Description 04/08/2020 5:00 PM CDT Lab [facility] ([facility]) [address] [place] [phone] Romeo Mahoney MD [address] [facility] [address] [place] [address] Alcoholic cirrhosis of liver with ascites (CMS/HCC) Discharge Disposition: Discharge to home or self [...] on file documented as of this encounter Discharge Disposition Disposition Code Departure Means Destination Discharge to home or self care documented in this encounter Plan of Treatment Not on file documented as of this encounter Procedures Procedure Name Priority Date/Time Associated Diagnosis Comments [id number], TUMOR MARKER Routine 04/08/2020 4:48 PM CDT Alcoholic cirrhosis of liver with ascites (CMS/HCC) PROTIME-INR Routine 04/08/2020 4:48 PM CDT Alcoholic cirrhosis of liver with ascites (CMS/HCC) CBC WITHOUT DIFFERENTIAL Routine 04/08/2020 4:48 PM CDT Alcoholic cirrhosis of liver with ascites (CMS/HCC) COMPREHENSIVE METABOLIC PANEL Routine 04/08/2020 4:48 PM CDT Alcoholic cirrhosis of liver with ascites (CMS/HCC) documented in this encounter Results * [id number], Tumor Marker (04/08/2020 4:48 PM CDT) alpha Fetoprotein 3.7 <=8.3 ng/mL [facility] Blood specimen (specimen) 04/08/2020 4:48 PM CDT 04/08/2020 5:01 PM CDT Romeo Mahoney MD LAB BLOOD ORDERABLES F inal Result [facility] [place] [address] * (ABNORMAL) Protime-INR (04/08/2020 4:48 PM CDT) PT 18.8(H) 8.6 - 13.0 sec [facility] INR 1.7(H) 0.8 - 1.2 [facility] Comment: Interpretive data Oral anticoagulant therapeutic ranges: Venous thromboembolism prophylaxis or treatment: 2.0-3.0 CARDIOLOGY Standard range: 2.0-3.0 High-intensity range: 2.5-3.5 Refer to indication-specific guidelines for appropriate target ranges for prosthetic heart valve replacement. Current interpretive data was last revised on 2019. Blood specimen (specimen) 04/08/2020 4:48 PM CDT 04/08/2020 5:01 PM CDT Romeo Mahoney MD LAB BLOOD ORDERABLES F inal Result [facility] Department [place] [address] * (ABNORMAL) CBC without differential (04/08/2020 4:48 PM CDT) [facility] WBC 5.0 3.8 - 9.9 K/cumm [facility] Hgb 11.5(L) 13.0 - 17.5 g/dL [facility] Hct 36.5(L) 38.9 - 50.3 % [facility] Plt 111(L) 150 - 400 K/cumm [facility] MPV 10.3 9.1 - 12.3 fL [facility] RBC 3.97(L) 4.30 - 5.80 M/cumm [facility] MCV 91.9 81.3 - 96.4 fL [facility] MCH 29.0 27.1 - 33.3 pg [facility] MCHC 31.5(L) 32.3 - 35.7 g/dL [facility] RDW CV 16.2(H) 11.1 - 14.9 % [facility] RDW SD 54.6(H) 35.7 - 48.1 fL [facility] NRBC abs 0.00 0.00 - 0.01 K/cumm [facility] Blood specimen (specimen) 04/08/2020 4:48 PM CDT 04/08/2020 5:01 PM CDT Romeo Mahoney MD LAB BLOOD ORDERABLES F inal Result [facility] Department [place] [address] * (ABNORMAL) Comprehensive metabolic panel (04/08/2020 4:48 PM CDT) [facility] Sodium 139 135 - 145 mmol/L [facility] Potassium, pl 4.0 3.3 - 4.9 mmol/L [facility] Chloride 104 97 - 110 mmol/L [facility] CO2 25 22 - 32 mmol/L [facility] Anion gap 10 2 - 15 mmol/L [facility] BUN 7(L) 8 - 25 mg/dL [facility] Creatinine 0.83 0.80 - 1.30 mg/dL [facility] Glucose 116 70 - 199 mg/dL [facility] Comment: Interpretive Data Fasting glucose >/= [...] 2017. Calcium 9.2 8.5 - 10.3 mg/dL [facility] Bilirubin, total 2.3(H) 0.1 - 1.2 mg/dL [facility] Protein, pl 7.8 6.5 - 8.5 g/dL [facility] Albumin 3.3(L) 3.5 - 5.0 g/dL [facility] Alk phos 155(H) 40 - 130 Units/L [facility] ALT 26 7 - 55 Units/L [facility] AST 63(H) 10 - 50 Units/L [facility] Blood specimen (specimen) 04/08/2020 4:48 PM CDT 04/08/2020 5:01 PM CDT Romeo Mahoney MD LAB BLOOD ORDERABLES F inal Result [facility] Department [place] [address] documented in this encounter Visit Diagnoses Diagnosis Alcoholic cirrhosis of liver with ascites (CMS/HCC) (HCC) documented in this encounter Additional Health Concerns Infection Onset Date Last Indicated Resolved Time 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
--- OUTSIDE RECORDS SUMMARY | 2024-06-27 04:54 | XMS_ITS | Encounter Summary ---
Author Organization [facility] Medical Group Address [address] [facility] [address] [place] [address] Care Team Providers Care Health Education Teacher Name Role Phone Unavailable Primary Care Provider Unavailabl e Reason for Referral * Diagnostic Imaging (Routine) - Closed Specialty Diagnoses / Procedures Referred By Contac t Referred To Contact Diagnoses Chronic right shoulder pain Procedures XR Shoulder Right 2 or More Views Emir Crawford MD [address] [place] [address] Phone: tel: fax: [address] [address] Referral ID Status Reason Start Date Expiration Date Visits Re quested Visits Authorized [id number] Closed 05/27/2020 06/26/2021 1 1 RPRISE ACCOUNT EXECUTIVE Reason for Visit * Reason Comments Establish Care Prev - Pt does no t remember 's name Last Colonoscopy- scheduled for 06/01/2020 Dr Douglas Last Eye Exam- Yrs ago. Last PSA- ? not sure Shoulder Pain C/O R shoulder pain that is ongoing. Pt states that he has seen a specialist in the past and is needing surgery. Pt has been taking Tylenol 500 mg hs but is does not help. Encounter Details Date Type Department Care Team (Latest Contact Info) Description 05/27/2020 1:30 PM ENTERPRISE ACCOUNT EXECUTIVE Office Visit [facility] Medical [facility] Primary Care [address] [place] [phone] Emir Crawford MD [address] [place] [address] Alcoholic cirrhosis of liver with ascites (CMS/HCC) (Primary Dx); Hepatic encephalopathy (CMS/HCC); Secondary esophageal varices without bleeding (CMS/HCC); History of hepatitis C virus infection; Essential hypertension; Chronic right shoulder pain Social History Tobacco [...] Sign Reading Time Taken Comments Blood Pressure 120/84 05/27/2020 1:49 PM ENTERPRISE ACCOUNT EXECUTIVE Pulse 78 05/27/2020 1:49 PM ENTERPRISE ACCOUNT EXECUTIVE Temperature 35.9 ??C (96.6 ??F) 05/27/2020 1:49 PM CS T Respiratory Rate 16 05/27/2020 1:49 PM ENTERPRISE ACCOUNT EXECUTIVE Oxygen Saturation 99% 05/27/2020 1:49 PM ENTERPRISE ACCOUNT EXECUTIVE Inhaled Oxygen Concentration - - Weight 83.8 kg (184 lb 11.2 oz) 05/27/2020 1:49 PM ENTERPRISE ACCOUNT EXECUTIVE Height 182.9 cm (6') 05/27/2020 1:49 PM ENTERPRISE ACCOUNT EXECUTIVE Body Mass Index 25.05 05/27/2020 1:49 PM ENTERPRISE ACCOUNT EXECUTIVE documented in this encounter Progress Notes * Emir Crawford MD - 05/27/2020 1:30 PM CST Images from the original note were not included. Subjective/Objective Patient ID: Chester Brumfield Jr. is a 49 y.o. male. Assessment/Plan Diagnoses and all orders for this visit: Alcoholic cirrhosis of liver with ascites (CMS/HCC) (Primary) Assessment & Plan: Stable. Currently being followed by Dr. Mahoney Hepatic encephalopathy (CMS/HCC) Assessment & Plan: Stable on Xifaxan and lactulose Secondary esophageal varices without bleeding (CMS/HCC) Assessment & Plan: Status post banding. Due for repeat EGD by Dr. Douglas. History of hepatitis C virus infection Assessment & Plan: Currently undetectable Essential hypertension Assessment & Plan: Stable on metoprolol and amlodipine Chronic right shoulder pain Assessment & Plan: Will start with checking an x-ray of right shoulder Orders: - XR Shoulder Right 2 or More Views; Future Chief Complaint Here to get established. HPI: Chester is here to establish care. Last Colonoscopy- scheduled for 06/01/2020 Dr Douglas Last Eye Exam- Yrs ago. He complains of R shoulder pain that is ongoing. Pt states that he has seen a specialist in the past and is needing surgery. Pt has been taking Tylenol 500 mg hs but is does not help. He has a history alcoholic cirrhosis complicated by hepatic encephalopathy and esophageal varices. He follows with Dr. Nagy. He quit drinking in December of 2019. He had an alpha fetoprotein checked in March which was normal at 3.7. His protime is mildly elevated at 18.8. Platelet count is mildly decreased at 111. His bilirubin is elevated 2 3. Albumin is improved from 1.7 up to 3.3 in March. His AST is mildly elevated 63. He was admitted the hospital in December ascites, variceal bleed, and encephalopathy. These have all improved since he quit drinking after that hospitalization. He has a history of hepatitis C and was treated by Dr. Douglas. In November of 2019 his RNA level was undetectable. Current Outpatient Medications Medication Sig Dispense Refill ??? acetaminophen 500 mg capsule Take 1 capsule (500 mg total) by mouth every 6 (six) hours as needed for pain 30 tablet 0 ??? famotidine (PEPCID) 20 mg tablet Take 20 mg by mouth 2 (two) times a day ??? lactulose 0.67 gram/mL solution Take 30 mL (20 g total) by mouth 3 (three) times a day 2700 mL 11 ??? multivitamin capsule Take 1 capsule by mouth daily ??? tamsulosin (FLOMAX) 0.4 mg extended release capsule Take 0.4 mg by mouth daily ??? Xifaxan 550 mg tablet Take 1 tablet (550 mg total) by mouth 2 (two) times a day 60 tablet 11 ??? folic acid (FOLVITE) 1 mg tablet Take 1 tablet (1 mg total) by mouth daily 30 tablet 3 No current facility-administered medications for this visit. [...] for difficulty urinating, dysuria and urgency. Musculoskeletal: Positive for arthralgias (right shoulder pain). Negative for back pain and joint swelling. Skin: Negative for color change and rash. Allergic/Immunologic: Negative for immunocompromised state. Neurological: Negative for dizziness, numbness and headaches. Hematological: Does not bruise/bleed easily. Psychiatric/Behavioral: Negative for agitation and decreased concentration. The patient is not nervous/anxious. Labs: No results found for this or any previous visit (from the past 1008 hour(s)). Physical Exam: BP 120/84 (BP Location: Left arm, Patient Position: Sitting) Pulse 78 Temp (!) 35.9 ??C (96.6 ??F) (Skin) Resp 16 Ht 182.9 cm (6') Wt 83.8 kg (184 lb 11.2 oz) SpO2 99% BMI 25.05 kg/m?? Physical Exam Constitutional: Appearance: He is well-developed. HENT: Head: Normocephalic and atraumatic. Nose: Nose normal. Mouth/Throat: Comments: Severe dental caries on lower jaw. Edentulous on uppers. Cardiovascular: Rate and Rhythm: Normal rate and regular rhythm. Heart sounds: Normal heart sounds. No murmur. No friction rub. No gallop. Pulmonary: Breath sounds: Normal breath sounds. No wheezing or rales. Abdominal: General: Bowel sounds are normal. There is no distension. Palpations: Abdomen is soft. Tenderness: There is no abdominal tenderness. Musculoskeletal: Comments: Right shoulder - FROM, no muscle weakness, No tenderness. Skin: General: Skin is warm and dry. Findings: No rash. Neurological: Mental Status: He is alert and oriented to person, place, and time. Emir Crawford MD RPRISE ACCOUNT EXECUTIVE documented in this encounter Miscellaneous Notes * Assessment & Plan Note - Emir Crawford MD - 05/27/2020 2:28 PM ENTERPRISE ACCOUNT EXECUTIVE Associated Problem(s): Chronic right shoulder pain Will start with checking an x-ray of right shoulder RPRISE ACCOUNT EXECUTIVE * Assessment & Plan Note - Emir Crawford MD - 05/25/2020 1:34 PM ENTERPRISE ACCOUNT EXECUTIVE Associated Problem(s): Hypertension Stable on metoprolol and amlodipine RPRISE ACCOUNT EXECUTIVE * Assessment & Plan Note - Emir Crawford MD - 05/25/2020 1:34 PM ENTERPRISE ACCOUNT EXECUTIVE Associated Problem(s): History of hepatitis C virus infection Currently undetectable RPRISE ACCOUNT EXECUTIVE * Assessment & Plan Note - Emir Crawford MD - 05/25/2020 1:32 PM ENTERPRISE ACCOUNT EXECUTIVE Associated Problem(s): Hepatic encephalopathy (HCC) Stable on Xifaxan and lactulose RPRISE ACCOUNT EXECUTIVE RPRISE ACCOUNT EXECUTIVE * Assessment & Plan Note - Emir Crawford MD - 05/25/2020 1:30 PM ENTERPRISE ACCOUNT EXECUTIVE Associated Problem(s): Esophageal varices (HCC) Status post banding. Due for repeat EGD by Dr. Douglas. RPRISE ACCOUNT EXECUTIVE RPRISE ACCOUNT EXECUTIVE * Assessment & Plan Note - Emir Crawford MD - 05/25/2020 1:29 PM ENTERPRISE ACCOUNT EXECUTIVE Associated Problem(s): Alcoholic cirrhosis of liver without ascites (CMS/HCC) (HCC) Stable. Currently being followed by Dr. Mahoney RPRISE ACCOUNT EXECUTIVE documented in this encounter Plan of Treatment Not on file documented as of this encounter Results * XR Shoulder Right 2 or More Views (06/03/2020 3:43 PM ENTERPRISE ACCOUNT EXECUTIVE) Anatomical Region Laterality Modality Upper Extremities, Shoulder Right Radi ographic Imaging 06/04/2020 12:3 8 PM ENTERPRISE ACCOUNT EXECUTIVE Narrative 06/04/2020 12:40 PM ENTERPRISE ACCOUNT EXECUTIVE Patient Name: CHESTER BRUMFIELD JR ?Ordering Dr: Emir Crawford MD ?? D.O.B: 1970 ? Exam Date: 06/03/20 ?? 1543 ?? Age: 49 ?Sex: Male ? MR#: [id number] ?? Loc: ? RADIOLOGY REPORT ?? Order #[id number] ?? Radiology ? Shoulder RT 2Vw Min [...] 12:40 PM ?? T: ? Report ID: [id number] ?? Reading Location: ??[id number] ? REPORT ELECTRONICALLY SIGNED IN OTHER VENDOR SYSTEM ?? Resulting Agency Comment O Procedure Note Kenyon Mullen MD - 06/04/2020 Patient Name: CHESTER BRUMFIELD Dr: Emir Crawford MD D.O.B: 1970 Exam Date: 06/03/20 1543 Age: 49 Sex: Male MR#: [id number] Loc: RADIOLOGY REPORT Order #[id number] Radiology Shoulder RT 2Vw Min (STANDARD) Signed [...] - Electronically signed by Kenyon Mullen M.D. MJ T: Report ID: [id number] Reading Location: [place] [address] REPORT ELECTRONICALLY SIGNED IN OTHER VENDOR SYSTEM Emir Crawford MD IMG XR PROCEDURES Final Result documented in this encounter Visit Diagnoses Diagnosis Alcoholic cirrhosis of liver with ascites (CMS/HCC) (HCC)- Primary Hepatic encephalopathy (HCC) Hepatic encephalopathy Secondary esophageal varices without bleeding (CMS/HCC) (HCC) History of hepatitis C virus infection Essential hypertension Unspecified essential hypertension Chronic right shoulder pain Pain in joint, shoulder region Chronic right shoulder pain Pain in joint, shoulder region documented in this encounter Discontinued Medications Medication Sig Discontinue Reason Start Date End Da te amLODIPine (NORVASC) 5 mg tablet 5 mg Therapy completed 03/08/2018 05/27/2020 chlordiazePOXIDE (LIBRIUM) 10 mg capsule Therapy completed 12/25/2019 05/27/2020 chlordiazePOXIDE (LIBRIUM) 25 mg capsuleIndications:Alc ohol Withdrawal Syndrome Take 1 capsule (25 mg total) by mouth as needed for withdrawal symptoms Therapy completed 06/25/2019 05/27/2020 famotidine (PEPCID) 20 mg tablet Take 20 mg by mouth 2 (two) times a day Therapy completed 01/24/2020 05/27/2020 Firvanq 50 mg/mL recon soln TAKE 10ML BY MOUTH EVERY 6 HOURS DISCARD REMAING QUANTITY Therapy completed 12/26/2019 05/27/2020 folic acid (FOLVITE) 1 mg tablet Take 1 mg by mouth daily Therapy completed 05/27/2020 gabapentin (NEURONTIN) 100 mg capsule Take by mouth 3 (three) times a day Therapy completed 05/27/2020 HYDROcodone-acetaminop hen (NORCO) 5-325 mg per tablet Therapy completed 12/26/2019 05/27/2020 magnesium oxide (MAG-OX) 400 mg (241.3 mg elemental magnesium) tablet Take 1 tablet by mouth 2 (two) times a day Therapy completed 12/25/2019 05/27/2020 metoprolol tartrate (LOPRESSOR) 25 mg immediate release tablet TAKE 1 2 (ONE HALF) TABLET BY MOUTH EVERY 12 HOURS Therapy completed 12/25/2019 05/27/2020 naproxen (ALEVE) 220 mg tablet Take by mouth 2 (two) times a day with meals Therapy completed 05/27/2020 nicotine (NICODERM CQ) [address] 1 patch on the skin daily Therapy completed 04/02/2019 05/27/[address] (PROTONIX) 40 mg EC tablet Take 40 mg by mouth daily Therapy completed 05/27/2020 Phosphorous Supplement 280-160-250 mg powder in packet DISSOLVE & TAKE 1 PACKET IN WATER & DRINK THREE TIMES DAILY Therapy completed 02/23/2020 05/27/[address] (PROTONIX) 40 mg EC tabletIndications:Alco holic cirrhosis of liver with ascites (CMS/HCC) (HCC) Take 1 tablet (40 mg total) by mouth 2 (two) times a day Therapy completed 03/03/2019 05/27/2020 QUEtiapine XR (SEROquel XR) 300 mg 24 hr tablet 300 mg Therapy completed 03/08/2018 05/27/2020 risperiDONE (RisperDAL) 1 mg tablet Take 1 mg by mouth 2 (two) times a day Therapy completed 05/27/2020 sertraline (ZOLOFT) 50 mg tablet Take 50 mg by mouth daily Therapy completed 05/27/2020 thiamine (VITAMIN B1) 100 mg tablet TAKE 2 TABLETS BY MOUTH ONCE DAILY FOR 30 DAYS Therapy completed 01/24/2020 05/27/2020 zolpidem (AMBIEN) 10 mg tablet 10 mg Therapy completed 03/08/2018 05/27/2020 documented as of this encounter Historical Medications * This list may reflect changes made after this encounter. 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
--- OUTSIDE RECORDS SUMMARY | 2024-06-27 04:54 | XMS_ITS | Encounter Summary ---
Author Organization [facility] Address [address] [place] [id number] Care Team Providers Care Bookkeeper Name Role Phone Unavailable Primary Care Provider Unavailabl e Reason for Visit * Reason Comments Pain bilat hands Encounter Details Date Type Department Care Team (Late st Contact Info) Description 09/07/2020 2:30 PM CDT Office Visit [facility] Primary Care [address] [place] [id number] Aileen Olmstead PA [address] [place], [place] [id number] Bilateral carpal tunnel syndrome (Primary Dx); Primary insomnia Social History Tobacco Use Types Packs/Day Years [...] Sign Reading Time Taken Comments Blood Pressure 140/70 09/07/2020 2:44 PM CDT Pulse 68 09/07/2020 2:44 PM CDT Temperature 36.1 ??C (96.9 ??F) 09/07/2020 2:44 PM CD T Respiratory Rate 16 09/07/2020 2:44 PM CDT Oxygen Saturation 98% 09/07/2020 2:44 PM CDT Inhaled Oxygen Concentration - - Weight 90.5 kg (199 lb 8 oz) 09/07/2020 2:44 PM CDT Height 182.9 cm (6') 09/07/2020 2:44 PM CDT Body Mass Index 27.06 09/07/2020 2:44 PM CDT documented in this encounter Ordered Prescriptions Prescription Sig Dispense Quantity Refills Last Filled Start Date End Date hydrOXYzine (ATARAX) 25 mg tabletIndications: anxiety 1-2 tabs before night time 90 tablet 1 09/07/2020 09/16/2020 documented in this encounter Progress Notes * Aileen Olmstead PA - 09/07/2020 2:30 PM CDT Images from the original note were not included. Subjective/Objective Patient ID: Chester Dubose Jr. is a 50 y.o. male. Assessment/Plan Diagnoses and all orders for this visit: Bilateral carpal tunnel syndrome (Primary) Assessment & Plan: Recent onset after pt started to lift weights. I discussed that he needs to scale down to conditionfirst before increasing weights. Also, use carpal tunnel wrist braces at night. No neurological deficits in B UE, no weakness to consider NCS at this point. Contact our office if no improvement after treatment in 3-4 weeks, develop new symptoms or feeling worse at any point. Primary insomnia - hydrOXYzine (ATARAX) 25 mg tablet; 1-2 tabs before night time No notes on file LABS Patient Active [...] Chief Complaint Patient presents with ??? Pain bilat hands Pain This is a new problem. Episode onset: 2 weeks. Episode frequency: nightly. The problem is unchanged. The pain occurs in the context of recent physical stress (lifting weights x 4 weeks). The pain is present in the left hand and right hand. 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 Pertinent negatives include no joint swelling, stiffness or sensory change. Past treatments include nothing. No h/o carpal tunnel. Also, pt has sleeping problem. He tried hydroxyzine and it worked very good for insomnia and anxiety. Asking if could get it prescribed. Review of Systems Musculoskeletal: Negative for joint swelling and stiffness. 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 Negative for sensory change. All other systems reviewed and are negative. Vitals BP 140/70 (BP Location: Right arm, Patient Position: Sitting) Pulse 68 Temp 36.1 ??C (96.9 ??F) (Transdermal) Resp 16 Ht 182.9 cm (6') Wt 90.5 kg (199 lb 8 oz) SpO2 98% BMI 27.06 kg/m?? Current Outpatient Medications Medication Sig Dispense Refill ??? acetaminophen 500 mg capsule Take 1 capsule (500 mg total) by mouth every 6 (six) hours as needed for pain 30 tablet 0 ??? famotidine (PEPCID) 20 mg tablet Take 20 mg by mouth 2 (two) times a day ??? folic acid (FOLVITE) 1 mg tablet Take 1 mg by mouth daily ??? gabapentin (NEURONTIN) 100 mg capsule Take 1 capsule (100 mg total) by mouth nightly (Patient taking differently: Take 100 mg by mouth 2 (two) times a day ) 90 capsule 1 ??? lactulose 0.67 gram/mL solution Take 30 [...] total) by mouth daily 30 tablet 3 ??? hydrOXYzine (ATARAX) 25 mg tablet 1-2 tabs before night time 90 tablet 1 No current facility-administered medications for this visit. Physical Exam Constitutional: General: He is not in acute distress. Appearance: Normal appearance. Musculoskeletal: Right hand: Tenderness (palmar wrist) present. No swelling. Normal range of motion. Normal strength. Normal sensation. Left hand: Tenderness (palmar wrist) present. No swelling. Normal range of motion. Normal strength.Normal sensation. documented in this encounter Miscellaneous Notes * Assessment & Plan Note - Aileen Olmstead PA - 09/07/2020 3:11 PM CDT Associated Problem(s): Bilateral carpal tunnel syndrome Recent onset after pt started to lift weights. I discussed that he needs to scale down to conditionfirst before increasing weights. Also, use carpal tunnel wrist braces at night. No neurological deficits in B UE, no weakness to consider NCS at this point. Contact our office if no improvement after treatment in 3-4 weeks, develop new symptoms or feeling worse at any point. documented in this encounter Plan of Treatment Not on file documented as of this encounter Visit Diagnoses Diagnosis Bilateral carpal tunnel syndrome- Primary Carpal tunnel syndrome Primary insomnia Persistent disorder of initiating or maintaining sleep documented in this encounter Historical Medications * This list may reflect changes made after this encounter. 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
--- OUTSIDE RECORDS SUMMARY | 2024-06-27 04:54 | XMS_ITS | Encounter Summary ---
Author Organization [facility] Address [address] [place] [address] Phone Care Team Providers Care Clearing Inspector Name Role Phone Unavailable Primary Care Provider Unavailabl e Encounter Details Date Type Department Care Team (Late st Contact Info) Description 07/06/2020 Orders Only [facility] Scanning, Provider Social [...] Date/Time Associated Diagnosis Comments SCAN - RADIOLOGY/IMAGING 07/06/2020 documented in this encounter Results * SCAN - RADIOLOGY/IMAGING (07/06/2020) Anatomical Region Laterality Modality Other us Provider Scanning Final Result documented in this encounter Visit Diagnoses Not on filedocumented in this encounter Additional Health Concerns Infection Onset Date Last Indicated Resolved Time 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
--- OUTSIDE RECORDS SUMMARY | 2024-06-27 04:54 | XMS_ITS | Encounter Summary ---
Author Organization [facility] Address [address] [place] [address] Phone Care Team Providers Care Sewing Machine Operator Name Role Phone Unavailable Primary Care Provider Unavailabl e Encounter Details Date Type Department Care Team (Late st Contact Info) Description 09/10/[address] [facility] [address] [place] [address] [place] [id number] Bibi Greene, REJI Hepatic encephalopathy (CMS/HCC) (Primary Dx) Social History Tobacco Use Types [...] (three) times a day 2700 mL 11 09/10/2020 1 Xifaxan 550 mg tabletIndications:He patic encephalopathy (HCC) Take 1 tablet (550 mg total) by mouth 2 (two) times a day 60 tablet 11 09/10/2020 1 documented in this encounter Plan of Treatment Not on file documented as of this encounter Visit Diagnoses Diagnosis Hepatic encephalopathy (HCC)- Primary Hepatic encephalopathy documented in this encounter Discontinued Medications Medication Sig Discontinue Reason Start Date End Da te Xifaxan 550 mg tablet Take 1 tablet (550 mg total) by mouth 2 (two) times a day Reorder 04/08/2020 09/10/2020 lactulose 0.67 gram/mL solution Take 30 mL (20 g total) by mouth 3 (three) times a day Reorder 04/08/2020 09/10/2020 documented as of this encounter Additional Health Concerns Infection Onset Date Last Indicated Resolved Time 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
--- OUTSIDE RECORDS SUMMARY | 2024-06-27 04:54 | XMS_ITS | Encounter Summary ---
Author Organization [facility] Healthcare Address [address] [place] [id number] Care Team Providers Care Lasting Room Supervisor Name Role Phone Jayne Bowen MD Primary Care Provider + Encounter Details Date Type Department Care Team (Late st Contact Info) Description 12/30/2019 6:40 PM CDT - 01/04/2020 11:25 AM CDT Hospital Encounter [facility] ADMIT Unknown, Bibi Herman DO [address] [facility] [address] Discharge Disposition: Discharge to home, home health skilled care Social History Tobacco Use Types Packs/Day Years Used Date Smoking Tobacco: Every Day Cigarettes 1 40 Smokeless Tobacco: Former Alcohol Use Standard Drinks/Week Comments Yes 12 (1 standard drink = 0.6 oz pu re alcohol) drink when wakes up Sex and Gender Information Value Date Recorded Sex Assigned at Not on file Legal Sex Male 8:48 AM CDT Gender Identity Not on file Sexual Orientation Not on file documented as of this encounter Last Filed Vital Signs Vital Sign Reading Time Taken Comments Blood Pressure 104/62 12/30/2019 9:32 PM CDT Pulse 80 12/30/2019 9:32 PM CDT Temperature 36.9 ??C (98.4 ??F) 12/30/2019 9:32 PM CD T Respiratory Rate - - Oxygen Saturation 95% 12/30/2019 9:32 PM CDT Inhaled Oxygen Concentration - - Weight 78.9 kg (173 lb 14.4 oz) 12/30/2019 9:32 PM CDT Height 182.9 cm (6') 12/30/2019 9:32 PM CDT Body Mass Index 23.59 12/30/2019 9:32 PM CDT documented in this encounter Medications at Time of Discharge thiamine (VITAMIN B-1) 50 mg tabletIndication s:Alcoholic cirrhosis of liver with ascites (CMS/HCC) (HCC) Take 1 tablet (50 mg total) by mouth daily 30 tablet 3 03/03/2019 0 acetaminophen 500 mg capsule Take 1 capsule (500 mg total) by mouth every 6 (six) hours as needed for pain 30 tablet 02/25/2019 2 amLODIPine (NORVASC) 5 mg tablet 5 mg 03/08/2018 0 chlordiazePOXIDE (LIBRIUM) 10 mg capsule 0 12/25/2019 0 chlordiazePOXIDE (LIBRIUM) 25 mg capsuleIndicatio ns:Alcohol Withdrawal Syndrome Take 1 capsule (25 mg total) by mouth as needed for withdrawal symptoms 5 capsule 06/25/2019 0 Firvanq 50 mg/mL recon soln TAKE 10ML BY MOUTH EVERY 6 HOURS DISCARD REMAING QUANTITY 12/26/2019 0 folic acid (FOLVITE) 1 mg tabletIndication s:Alcoholic cirrhosis of liver with ascites (CMS/HCC) (HCC) Take 1 tablet (1 mg total) by mouth daily 30 tablet 3 03/03/2019 1 gabapentin (NEURONTIN) 100 mg capsule Take by mouth 3 (three) times a day 0 HYDROcodone-acet aminophen (NORCO) 5-325 mg per tablet 0 12/26/2019 0 magnesium oxide (MAG-OX) 400 mg (241.3 mg elemental magnesium) tablet Take 1 tablet by mouth 2 (two) times a day 12/25/2019 0 metoprolol tartrate (LOPRESSOR) 25 mg immediate release tablet TAKE 1 2 (ONE HALF) TABLET BY MOUTH EVERY 12 HOURS 12/25/2019 0 naproxen (ALEVE) 220 mg tablet Take by mouth 2 (two) times a day with meals 0 nicotine (NICODERM CQ) [address] 1 patch on the skin daily 28 patch 1 04/02/[address] (PROTONIX) 40 mg EC tabletIndication s:Alcoholic cirrhosis of liver with ascites (CMS/HCC) (HCC) Take 1 tablet (40 mg total) by mouth 2 (two) times a day 60 tablet 3 03/03/2019 0 QUEtiapine XR (SEROquel XR) 300 mg 24 hr tablet 300 mg 03/08/2018 0 risperiDONE (RisperDAL) 1 mg tablet Take 1 mg by mouth 2 (two) times a day 0 sertraline (ZOLOFT) 50 mg tablet Take 50 mg by mouth daily 0 spironolactone (ALDACTONE) 25 mg tablet TAKE 1 2 (ONE HALF) TABLET BY MOUTH ONCE DAILY 12/25/2019 0 tamsulosin (FLOMAX) 0.4 mg extended release capsule Take 0.4 mg by mouth daily 12/25/2019 1 Xifaxan 550 mg tablet Take 550 mg by mouth 2 (two) times a day 12/25/2019 0 zolpidem (AMBIEN) 10 mg tablet 10 mg 03/08/2018 0 documented as of this encounter Discharge Disposition Disposition Code Departure Means Destination Discharge to home, home health skilled care documented in this encounter Plan of Treatment Not on file documented as of this encounter Procedures Procedure Name Priority Date/Time Associated Diagnosis Comments SCAN - LABS 01/05/2020 12:00 AM CDT CBC WITH AUTO DIFFERENTIAL Routine 01/03/2020 6:49 AM CDT AMMONIA Routine 01/03/2020 6:49 AM CDT COMPREHENSIVE METABOLIC PANEL Routine 01/03/2020 6:49 AM CDT SCAN - LABS 01/03/2020 12:00 AM CDT CBC WITH AUTO DIFFERENTIAL Routine 01/02/2020 4:37 AM CDT LIPASE Routine 01/02/2020 4:37 AM CDT COMPREHENSIVE METABOLIC PANEL Routine 01/02/2020 4:37 AM CDT COVID-19 CORONAVIRUS RNA Routine 01/02/2020 3:35 AM CDT US GUIDED PARACENTESIS 0 9:57 PM CDT BODY FLUID CULTURE Routine 12/31/2019 10 :00 AM CDT GRAM STAIN Routine 12/31/2019 10:00 AM CDT ANAEROBIC CULTURE Routine 12/31/2019 10: 00 AM CDT CBC WITH AUTO DIFFERENTIAL Routine 12/31/2019 5:07 AM CDT PROTIME-INR Routine 12/31/2019 5:07 AM CDT LIPASE Routine 12/31/2019 5:07 AM CDT AMYLASE Routine 12/31/2019 5:07 AM CDT AMMONIA Routine 12/31/2019 5:07 AM CDT HEPATIC FUNCTION PANEL Routine 0 5:07 AM CDT BASIC METABOLIC PANEL Routine 12/31/2019 5:07 AM CDT DRUGS OF ABUSE SCREEN, URINE WITHOUT CONFIRMATION Routine 12/30/2019 7:15 PM CDT URINALYSIS, COMPLETE W/REFLEX TO CULTURE Routine 12/30/2019 1:19 PM CDT CBC WITH AUTO DIFFERENTIAL Routine 12/30/2019 1:17 PM CDT TROPONIN I Routine 12/30/2019 1:17 PM CDT APTT Routine 12/30/2019 1:17 PM CDT PROTIME-INR Routine 12/30/2019 1:17 PM CDT LIPASE Routine 12/30/2019 1:17 PM CDT ETHANOL Routine 12/30/2019 1:17 PM CDT COMPREHENSIVE METABOLIC PANEL Routine 12/30/2019 1:17 PM CDT ECG 12-LEAD 12/30/2019 1:04 PM CDT XR CHEST 1 VIEW 12/30/2019 11:[address] ABDOMEN PELVIS W CONTRAST 12/30/2019 11:33 AM CDT documented in this encounter Results * SCAN - LABS (01/05/2020 12:00 AM CDT) Narrative 01/05/2020 12:00 AM CDT Ordered by an unspecified provider. us Historical Provider MD Final Res ult * (ABNORMAL) Comprehensive metabolic panel (01/03/2020 6:49 AM CDT) Sodium 136 135 - 145 mmol/L [facility] Potassium 4.0 3.3 - 5.1 mmol/L [facility] Chloride 107 96 - 108 mmol/L [facility] Carbon Dioxide 24 22 - 32 mmol/L [facility] Anion Gap 5(L) 7 - 16 [facility] Glucose 119(H) 70 - 100 mg/dL [facility] BUN 6(L) 8 - 25 mg/dL [facility] Creatinine 0.6 0.5 - 1.3 mg/dL [facility] Comment: NOTE: Estimated GFR (Cockroft-Gault) will NOT be calculated unless patient Height and Weight were entered. Also, Kidney Disease Stage (GFR) and Estimated GFR (Cockroft-Gault) will NOT be calculated if Creatinine result is <0.2. Kidney Disease Stage >90 mL/MIN [facility] Comment: NOTE; ??The GFR is an estimated value using the creatinine, sex, age, and race of the patient. THE Estimated Kidney Disease GFR is validated for AGES 18-70 YEARS STAGE ?mL/Min ?DESCRIPTION ??1 ?90 mL/min or more ?Normal or elevated GFR ??2 ? 60-89 mL/min ?Mildly decreased GFR ??3 ? 30-59 mL/min ?Moderately decreased GFR ??4 ? 15-29 mL/min ?Severely decreased GFR ??5 ? <15 mL/min ? Kidney failure or on dialysis Est GFR (Cockcroft-G) 168 ml/MIN [facility] Comment: Estimated GFR(Cockroft-Gault)is used to calculate patient medication dosage Calcium 7.5(L) 8.6 - 10.3 mg/dL [facility] Total Protein 5.9(L) 6.4 - 8.3 g/dL [facility] Albumin 1.7(L) 3.5 - 5.0 g/dL [facility] Globulin 4.2(H) 2.3 - 3.5 gm/dL [facility] Albumin/Globulin Ratio 0.4(L) 1.1 - 1.8 [facility] Total Bilirubin 1.5(H) 0.0 - 1.2 mg/dL [facility] AST 93(H) 0 - 40 U/L [facility] ALT 33 0 - 41 U/L [facility] Alkaline Phosphatase 113 40 - 129 U/L [facility] 01/03/2020 6:49 AM CDT 01/03/2020 6:53 AM CDT Narrative Resulting Agency Comment IN Bibi Crews DO LAB BLOOD ORDERABLES Final Re sult Performing Organization Address City/[facility]/ZIP Co de Phone Number [address] [phone] * (ABNORMAL) Ammonia (01/03/2020 6:49 AM CDT) AMMONIA 103(H) 9 - 85 ug/dL [facility] 01/03/2020 6:49 AM CDT 01/03/2020 6:53 AM CDT Narrative Resulting Agency Comment IN Bibi PrettyDenis Crews LAB BLOOD ORDERABLES Final Re sult Performing Organization Address [facility] Co de Phone Number [address] [phone] * (ABNORMAL) CBC with auto differential (01/03/2020 6:49 AM CDT) Pathologist [facility] WBC 4.3 3.8 - 9.9 X10 3/ul [facility] RBC 3.07(L) 4.30 - 5.80 x10 6/ul [facility] Hemoglobin 9.7(L) 13.0 - 17.5 g/dL [facility] Hct 29.8(L) 38.9 - 50.3 % [facility] MCV 97.1(H) 81.3 - 96.4 fl [facility] MCH 31.6 27.1 - 33.3 pg [facility] MCHC 32.6 32.3 - 35.7 g/dl [facility] RDW 19.5(H) 11.1 - 14.9 % [facility] Plt Count 112(L) 150 - 400 x10 3/ul [facility] MPV 9.7 9.1 - 12.3 fl [facility] Neut % 54.6 % [facility] Immature Gran % 0.2 % [facility] Lymph % 23.9 % [facility] Ionia % 17.1 % [facility] Eos % 3.5 % [facility] AUTO BASO % 0.7 % [facility] NEUTROPHIL ABS # 2.3 1.7 - 6.5 x10 3/ul [facility] Immature Gran # 0.0 0.0 - 0.1 x10 3/ul [facility] Absolute Lymphs (auto) 1.0 0.8 - 3.3 x10 3/ul [facility] Absolute Monos (auto) 0.7 0.2 - 0.8 x10 3/ul [facility] Absolute Eos (auto) 0.2 0.0 - 0.5 x10 3/ul [facility] BASOPHIL ABS # 0.0 0.0 - 0.1 x10 3/ul [facility] Nucleat RBC Rel Count 0.0 #/100WBC [facility] NRBC abs 0.00 0.00 - 0.01 x10 3/ul [facility] Absolute Neutrophils 2,300 200 - 8,000 /ul [facility] 01/03/2020 6:4 9 AM CDT 01/03/2020 6:53 AM CDT Narrative Resulting Agency Comment IN us Bibi Crews DO LAB BLOOD ORDERABLES Final Re sult [facility] [address] [place] [address], [facility] [phone] * SCAN - LABS (01/03/2020 12:00 AM CDT) Narrative 01/03/2020 12:00 AM CDT Ordered by an unspecified provider. us Historical Provider Final Res ult * (ABNORMAL) Lipase (01/02/2020 4:37 AM CDT) Lipase 299(H) 13 - 60 U/L [facility] 01/02/2020 4:37 AM CDT 01/02/2020 5:11 AM CDT Narrative Resulting Agency Comment IN Bibi PrettyDenis Mars DO LAB BLOOD ORDERABLES Final Re sult [facility] [address] [place] [address], [facility] [phone] * (ABNORMAL) Comprehensive metabolic panel (01/02/2020 4:37 AM CDT) Pathologist [facility] Sodium 136 135 - 145 mmol/L [facility] Potassium 3.9 3.3 - 5.1 mmol/L [facility] Chloride 106 96 - 108 mmol/L [facility] Carbon Dioxide 25 22 - 32 mmol/L [facility] Anion Gap 5(L) 7 - 16 [facility] Glucose 116(H) 70 - 100 mg/dL [facility] BUN 5(L) 8 - 25 mg/dL [facility] Creatinine 0.5 0.5 - 1.3 mg/dL [facility] Comment: NOTE: Estimated GFR (Cockroft-Gault) will NOT be calculated unless patient Height and Weight were entered. Also, Kidney Disease Stage (GFR) and Estimated GFR (Cockroft-Gault) will NOT be calculated if Creatinine result is <0.2. Kidney Disease Stage >90 mL/MIN [facility] Comment: NOTE; ??The GFR is an estimated value using the creatinine, sex, age, and race of the patient. THE Estimated Kidney Disease GFR is validated for AGES 18-70 YEARS STAGE ?mL/Min ?DESCRIPTION ??1 ?90 mL/min or more ?Normal or elevated GFR ??2 ? 60-89 mL/min ?Mildly decreased GFR ??3 ? 30-59 mL/min ?Moderately decreased GFR ??4 ? 15-29 mL/min ?Severely decreased GFR ??5 ? <15 mL/min ? Kidney failure or on dialysis Est GFR (Cockcroft-G) 196 ml/MIN [facility] Comment: Estimated GFR(Cockroft-Gault)is used to calculate patient medication dosage Calcium 7.5(L) 8.6 - 10.3 mg/dL [facility] Total Protein 5.8(L) 6.4 - 8.3 g/dL [facility] Albumin 1.8(L) 3.5 - 5.0 g/dL [facility] Globulin 4.0(H) 2.3 - 3.5 gm/dL [facility] Albumin/Globulin Ratio 0.5(L) 1.1 - 1.8 [facility] Total Bilirubin 1.7(H) 0.0 - 1.2 mg/dL [facility] AST 109(H) 0 - 40 U/L [facility] ALT 38 0 - 41 U/L [facility] Alkaline Phosphatase 105 40 - 129 U/L [facility] 01/02/2020 4:37 AM CDT 01/02/2020 5:11 AM CDT Narrative Resulting Agency Comment IN us Bibi Crews DO LAB BLOOD ORDERABLES Final Re sult [facility] [address] [place] [address], [facility] [phone] * (ABNORMAL) CBC with auto differential (01/02/2020 4:37 AM CDT) WBC 4.9 3.8 - 9.9 X10 3/ul [facility] Comment: Results reviewed RBC 2.91(L) 4.30 - 5.80 x10 6/ul [facility] Hemoglobin 9.3(L) 13.0 - 17.5 g/dL [facility] Hct 28.5(L) 38.9 - 50.3 % [facility] MCV 97.9(H) 81.3 - 96.4 fl [facility] MCH 32.0 27.1 - 33.3 pg [facility] MCHC 32.6 32.3 - 35.7 g/dl [facility] RDW 19.3(H) 11.1 - 14.9 % [facility] Plt Count 125(L) 150 - 400 x10 3/ul [facility] MPV 9.6 9.1 - 12.3 fl [facility] Neut % 53.8 % [facility] Immature Gran % 0.2 % [facility] Lymph % 24.7 % [facility] Ionia % 15.8 % [facility] Eos % 4.9 % [facility] AUTO BASO % 0.6 % [facility] NEUTROPHIL ABS # 2.7 1.7 - 6.5 x10 3/ul [facility] Immature Gran # 0.0 0.0 - 0.1 x10 3/ul [facility] Absolute Lymphs (auto) 1.2 0.8 - 3.3 x10 3/ul [facility] Absolute Monos (auto) 0.8 0.2 - 0.8 x10 3/ul [facility] Absolute Eos (auto) 0.2 0.0 - 0.5 x10 3/ul [facility] BASOPHIL ABS # 0.0 0.0 - 0.1 x10 3/ul [facility] Nucleat RBC Rel Count 0.0 #/100WBC [facility] NRBC abs 0.00 0.00 - 0.01 x10 3/ul [facility] Absolute Neutrophils 2,700 200 - 8,000 /ul [facility] 01/02/2020 4:37 AM CDT 01/02/2020 5:11 AM CDT Narrative Resulting Agency Comment IN Bibi Crews DO LAB BLOOD ORDERABLES Final Re sult Performing Organization Address City/[facility]/ZIP Co de Phone Number [address] [phone] * COVID-19 Coronavirus RNA (01/02/2020 3:35 AM CDT) COVID-19 Coronavirus RNA NOT DETECTED [facility] Comment: A negative result does not rule out the possibility of COVID-19 and should not be used as the sole basis for patient management decisions. Coronavirus (COVID-19) Interp SEE COMMENT [facility] Coronavirus (COVID-19) Results called to TNP [facility] Misc Performing Lab [facility] 01/02/2020 3:35 AM CDT 01/02/2020 4:44 AM CDT Narrative [facility] - 01/02/2020 3:36 PM CDT Screening for emergent/scheduled (< 12hr) surg or procedure N Resulting Agency Comment IN Bibi Crews DO LAB MICROBIOLOGY - GENERAL OR DERABLES Final Result Performing Organization Address City/[facility]/ZIP Co de Phone Number [address] [phone] * US Guided Paracentesis (12/31/2019 9:57 PM CDT) Anatomical Region Laterality Modality Abdomen N/A Ultrasound 12/31/2019 10:5 5 AM CDT Narrative 12/31/2019 11:45 AM CDT Patient Name: AJRED BRUMFIELD JR ?Ordering Dr: Cindy Douglas MD ?? D.O.B: 1970 ? Exam Date: 12/30/ ?? 2157 ?? Age: 49 ?Sex: Male ? MR#: [id number] ?? Loc: ??C142-01 ? RADIOLOGY REPORT ?? Order #[id number] ?? Ultrasound ? US Guided Paracentesis in US ? Signed ?? EXAM DESCRIPTION: ?? US Guided Paracentesis in US ? HISTORY: ?? Ascites. ??Ultrasound-guided paracentesis is requested. ? COMPARISON: ?? CT of the abdomen and pelvis dated 12/30/2019. ? TECHNIQUE/FINDINGS: ? Pertinent imaging studies were reviewed including CT of the abdomen and pelvis ?? dated 12/30/2019. ??Immediately prior to the procedure, the healthcare team ?? performed the safety pause and verbally confirmed that the patient, the ?? planned procedure, the site and side were accurate. ? Pre-procedure sonographic scanning demonstrated the largest pocket of ascites ?? in the right lower quadrant. ??The skin was prepped and draped. ??Local ?? anesthesia was used with 1% lidocaine, including subcutaneous and deeper ?? tissues. ??Under ultrasound guidance, a 5-Icelandic 7 cm One Step Centesis ?? catheter was used to drain 3.7 liters of serous fluid from the right lower ?? quadrant. ??Needle placement was documented with sonographic images. ??The ?? catheter was removed with little remaining ascites identified. ??Hemostasis was ?? achieved. ??The area was dressed with a bandage. ? The patient tolerated the procedure well with no complication evident and was ?? discharged in stable condition. ??Post procedure education was completed ?? including pain management instructions. ? Estimated blood loss: <5 ml ? IMPRESSION: ?? Successful ultrasound-guided paracentesis. 3.7 liters of serous ?? fluid was removed. ? Samples were sent for laboratory analysis, which are pending. ? THIS IS AN ELECTRONICALLY VERIFIED FINAL REPORT ?? 12/31/2019 11:45 AM - Electronically signed by Cam Weeks M.D. ?? Cam Weeks M.D. ? RL ?? D: ??12/31/2019 11:45 AM ?? T: ? Report ID: [id number] ?? Reading Location: ??[id number] ? REPORT ELECTRONICALLY SIGNED IN OTHER VENDOR SYSTEM ?? Resulting Agency Comment I Procedure Note Cam Zepeda MD - 12/31/2019 Patient Name: GER BRUMFIELDDIRK Chowdhury Dr: Cindy Douglas MD DDenisO.B: 1970 Exam Date: 12/31/192156 Age: 49 Sex: Male MR#: [id number] Loc: C142-01 RADIOLOGY REPORT Order #[id number] Ultrasound US Guided Paracentesis in US Signed EXAM DESCRIPTION: US Guided Paracentesis in US HISTORY: Ascites. Ultrasound-guided paracentesis is requested. COMPARISON: CT of the abdomen and pelvis dated 12/30/2019. TECHNIQUE/FINDINGS: Pertinent imaging studies were reviewed including CT of the abdomen andpelvis dated 12/30/2019. Immediately prior to the procedure, the healthcareteam performed the safety pause and verbally confirmed that the patient, the planned procedure, the site and side were accurate. Pre-procedure sonographic scanning demonstrated the largest pocket ofascites in the right lower quadrant. The skin was prepped and draped. Local anesthesia was used with 1% lidocaine, including subcutaneous and deeper tissues. Under ultrasound guidance, a 5-Icelandic 7 cm One Step Centesis catheter was used to drain 3.7 liters of serous fluid from the rightlower quadrant. Needle placement was documented with sonographic images. The catheter was removed with little remaining ascites identified.Hemostasis was achieved. The area was dressed with a bandage. The patient tolerated the procedure well with no complication evident andwas discharged in stable condition. Post procedure education was completed including pain management instructions. Estimated blood loss: <5 ml IMPRESSION: Successful ultrasound-guided paracentesis. 3.7 liters ofserous fluid was removed. Samples were sent for laboratory analysis, which are pending. THIS IS AN ELECTRONICALLY VERIFIED FINAL REPORT 12/31/2019 11:45 AM - Electronically signed by Cam Weeks M.D. T: Report ID: [id number] Reading Location: [id number] REPORT ELECTRONICALLY SIGNED IN OTHER VENDOR SYSTEM us Cindy Douglas MD IMG US PROCEDURES Final R esult * Anaerobic culture Fluid Ascites (12/31/2019 10:00 AM CDT) CULTURE ANAEROBIC NO ANAEROBIC GROWTH DAY 5 [facility] Fluid (Ascites) 12/31/2019 1 0:00 AM CDT 12/31/2019 10:34 AM CDT Narrative [facility] - 01/05/2020 7:32 AM CDT Container ?? Not specified DESCRIPTION OF SPECIMEN: It is recommended that body fluid cultures be submitted to the lab in a leak proof, screw-capped sterile container. Evacuated bottles are not recommended for culture. Description of Specimen:1100 [employer] Resulting Agency Comment Container ? Not specified ? DESCRIPTION OF SPECIMEN: ?? It is recommended that body fluid cultures be submitted to ??the lab in a leak proof, screw-capped sterile container. ??Evacuated bottles are not recommended for culture. Description of Specimen:1100 [employer] ?? Earline GARCIA LAB MICROBIOLOGY - GENERAL ORDER WILLIAN Final Result Performing Organization Address [facility] Co de Phone Number [address] [phone] * Body Fluid Culture (12/31/2019 10:00 AM CDT) CULTURE BODY FLUID NO GROWTH AFTER 3 DAYS [facility] NAMED [facility] Fluid (Ascites) 12/31/2019 1 0:00 AM CDT 12/31/2019 10:34 AM CDT Narrative [facility] NAMED [facility] - 01/05/2020 7:32 AM CDT Container ?? Not specified DESCRIPTION OF SPECIMEN: It is recommended that body fluid cultures be submitted to the lab in a leak proof, screw-capped sterile container. Evacuated bottles are not recommended for culture. Description of Specimen:1100 [employer] Resulting Agency Comment Container ? Not specified ? DESCRIPTION OF SPECIMEN: ?? It is recommended that body fluid cultures be submitted to ??the lab in a leak proof, screw-capped sterile container. ??Evacuated bottles are not recommended for culture. Description of Specimen:1100 [employer] ?? Earline GARCIA LAB BLOOD ORDERABLES Final Resul t Performing Organization Address [facility]/[place] [address], [facility] [phone] * Gram stain Fluid Ascites (12/31/2019 10:00 AM CDT) GRAM STAIN NO ORGANISMS SEEN FEW-MOD WBC [facility] NAMED [facility] Fluid (Ascites) 12/31/2019 1 0:00 AM CDT 12/31/2019 10:34 AM CDT Narrative [facility] NAMED [facility] - 01/05/2020 7:32 AM CDT Container ?? Not specified DESCRIPTION OF SPECIMEN: It is recommended that body fluid cultures be submitted to the lab in a leak proof, screw-capped sterile container. Evacuated bottles are not recommended for culture. Description of Specimen:1100 [employer] Resulting Agency Comment Container ? Not specified ? DESCRIPTION OF SPECIMEN: ?? It is recommended that body fluid cultures be submitted to ??the lab in a leak proof, screw-capped sterile container. ??Evacuated bottles are not recommended for culture. Description of Specimen:1100 [employer] ?? Earline GARCIA LAB MICROBIOLOGY - GENERAL ORDER WILLIAN Final Result [address] [phone] * (ABNORMAL) Ammonia (12/31/2019 5:07 AM CDT) AMMONIA 119(H) 9 - 85 ug/dL [facility] 12/31/2019 5:07 AM CDT 12/31/2019 5:13 AM CDT Narrative Resulting Agency Comment IN Thais Peña NP LAB BLOOD ORDERABLES Final Resul t [address] [phone] * (ABNORMAL) Lipase (12/31/2019 5:07 AM CDT) Lipase 537(H) 13 - 60 U/L [facility] 12/31/2019 5:07 AM CDT 12/31/2019 5:13 AM CDT Narrative Resulting Agency Comment IN us Thais Peña [employer] LAB BLOOD ORDERABLES Final Resul t Performing Organization Address City/[facility]/ZIP Co de Phone Number [address] [phone] * (ABNORMAL) Amylase (12/31/2019 5:07 AM CDT) Amylase 252(H) 28 - 100 U/L [facility] 12/31/2019 5:07 AM CDT 12/31/2019 5:13 AM CDT Narrative Resulting Agency Comment IN us Thais Peña NP LAB BLOOD ORDERABLES Final Resul t Performing Organization Address [facility] de Phone Number [address] [phone] * (ABNORMAL) Hepatic function panel (12/31/2019 5:07 AM CDT) Total Protein 5.6(L) 6.4 - 8.3 g/dL [facility] Albumin 1.8(L) 3.5 - 5.0 g/dL [facility] Globulin 3.8(H) 2.3 - 3.5 gm/dL [facility] Albumin/Globulin Ratio 0.5(L) 1.1 - 1.8 [facility] Total Bilirubin 2.7(H) 0.0 - 1.2 mg/dL [facility] Direct Bilirubin 1.20(H) 0.00 - 0.25 mg/dL [facility] AST 132(H) 0 - 40 U/L [facility] ALT 40 0 - 41 U/L [facility] Alkaline Phosphatase 86 40 - 129 U/L [facility] 12/31/2019 5:07 AM CDT 12/31/2019 5:13 AM CDT Narrative Resulting Agency Comment IN us Thais Peña [employer] LAB BLOOD ORDERABLES Final Resul t [facility] NAMED [facility] [address] [place] [address], [facility] [phone] * (ABNORMAL) Basic metabolic panel (12/31/2019 5:07 AM CDT) Sodium 135 135 - 145 mmol/L [facility] Potassium 3.6 3.3 - 5.1 mmol/L [facility] Chloride 105 96 - 108 mmol/L [facility] Carbon Dioxide 25 22 - 32 mmol/L [facility] Anion Gap 5(L) 7 - 16 [facility] Glucose 117(H) 70 - 100 mg/dL [facility] BUN 9 8 - 25 mg/dL [facility] Creatinine 0.6 0.5 - 1.3 mg/dL [facility] Comment: The specimen is icteric. A high bilirubin level is known to cause a false decrease in measured creatinine. NOTE: Estimated GFR (Cockroft-Gault) will NOT be calculated unless patient Height and Weight were entered. Also, Kidney Disease Stage (GFR) and Estimated GFR (Cockroft-Gault) will NOT be calculated if Creatinine result is <0.2. Kidney Disease Stage >90 mL/MIN [facility]AM[facility] Comment: NOTE; ??The GFR is an estimated value using the creatinine, sex, age, and race of the patient. THE Estimated Kidney Disease GFR is validated for AGES 18-70 YEARS STAGE ?mL/Min ?DESCRIPTION ??1 ?90 mL/min or more ?Normal or elevated GFR ??2 ? 60-89 mL/min ?Mildly decreased GFR ??3 ? 30-59 mL/min ?Moderately decreased GFR ??4 ? 15-29 mL/min ?Severely decreased GFR ??5 ? <15 mL/min ? Kidney failure or on dialysis Est GFR (Cockcroft-G) 165 ml/MIN [facility] Comment: Estimated GFR(Cockroft-Gault)is used to calculate patient medication dosage Calcium 7.5(L) 8.6 - 10.3 mg/dL [facility] 12/31/2019 5:07 AM CDT 12/31/2019 5:13 AM CDT Narrative Resulting Agency Comment IN Thais Peña [employer] LAB BLOOD ORDERABLES Final Resul t Performing Organization Address City/State/[facility] Co de Phone Number [facility]AM[facility] [address] [phone] * (ABNORMAL) CBC with auto differential (12/31/2019 5:07 AM CDT) WBC 7.2 3.8 - 9.9 X10 3/ul [facility] Comment: Results reviewed RBC 2.93(L) 4.30 - 5.80 x10 6/ul [facility] Comment: Results reviewed Hemoglobin 9.0(L) 13.0 - 17.5 g/dL [facility] Comment: Results reviewed Hct 27.4(L) 38.9 - 50.3 % [facility] MCV 93.5 81.3 - 96.4 fl [facility] NAMED [facility] MCH 30.7 27.1 - 33.3 pg [facility] NAMED [facility] MCHC 32.8 32.3 - 35.7 g/dl [facility] NAM[facility] RDW 20.2(H) 11.1 - 14.9 % [facility] Plt Count 137(L) 150 - 400 x10 3/ul [facility] N[facility] MPV 9.8 9.1 - 12.3 fl [facility] N[facility] Neut % 63.5 % [facility] Immature Gran % 0.1 % [facility] Lymph % 18.6 % [facility] Ionia % 12.7 % [facility] Eos % 4.8 % [facility] AUTO BASO % 0.3 % [facility] NEUTROPHIL ABS # 4.6 1.7 - 6.5 x10 3/ul [facility] Immature Gran # 0.0 0.0 - 0.1 x10 3/ul [facility] Absolute Lymphs (auto) 1.3 0.8 - 3.3 x10 3/ul [facility] Absolute Monos (auto) 0.9(H) 0.2 - 0.8 x10 3/ul [facility] Absolute Eos (auto) 0.4 0.0 - 0.5 x10 3/ul [facility] NAM[facility] BASOPHIL ABS # 0.0 0.0 - 0.1 x10 3/ul [facility] Nucleat RBC Rel Count 0.0 #/100WBC [facility] NAMED [facility] NRBC abs 0.00 0.00 - 0.01 x10 3/ul [facility]AM[facility] Absolute Neutrophils 4,600 200 - 8,000 /ul [facility] 12/31/2019 5:07 AM CDT 12/31/2019 5:13 AM CDT Narrative Resulting Agency Comment IN us Thais Peña [employer] LAB BLOOD ORDERABLES Final Resul t [facility] NAMED [facility] [address] [place] [address], [facility] [phone] * (ABNORMAL) Protime-INR (12/31/2019 5:07 AM CDT) PT 23.8(H) 12.2 - 14.8 SECONDS [facility] NAMED [facility] INR 2.05 [facility] NAMED [facility] Comment: Recommended Therapeutic range for Oral Anticoagulant Therapy No anti-coagulation therapy ? Normal Range: ?0.8-1.4 Anti-coagulation therapy ? Low intensity therapy ?2.0-3.0 ? High intensity therapy ?? 2.5-3.5 Critical Value ? Greater than or equal to 5.0 Patients should be monitored for serious bleeding. 12/31/2019 5:07 AM CDT 12/31/2019 5:13 AM CDT Narrative Resulting Agency Comment IN us Thais Peña NP LAB BLOOD ORDERABLES Final Resul t [facility] NAMED [facility] [address] [place] [address], [facility] [phone] * Drugs of Abuse Screen, Urine without Confirmation (12/30/2019 7:15 PM CDT) Amphetamines NOT DETECTED [facility] [employer] [facility] Comment: This assay uses 500 ng/mL as a cutoff for a positive result. Barbiturates NOT DETECTED [facility] [employer] [facility] Comment: This assay uses 200 ng/mL as a cutoff for a positive result. Urine Fentanyl NOT DETECTED [facility] Comment: This assay uses 1 ng/mL as a cutoff for a positive result. Benzodiazepines NOT DETECTED [facility] [employer] [facility] Comment: This assay uses 100 ng/mL as a cutoff for a positive result. Cannabinoids NOT DETECTED [facility] [employer] [facility] Comment: This assay uses 50 ng/mL as a cutoff for a positive result. Cocaine DETECTED [facility] [employer] [facility] Comment: This assay uses 150 ng/mL as a cutoff for a positive result. Opiates NOT DETECTED [facility] [employer] [facility] Comment: This assay uses 300 ng/mL as a cutoff for a positive result. Urine methadone NOT DETECTED [facility] [employer] [facility] Comment: This assay uses 300 ng/mL as a cutoff for a positive result. Urine phencyclidine plus NOT DETECTED [facility] [employer] [facility] Comment: This assay uses 25 ng/mL as a cutoff for a positive result. Oxycodone NOT DETECTED [facility] Comment: This assay uses 100 ng/mL as a cutoff for a positive result. Urine Creatinine/GERMAN 26.0 mg/dL [facility] Comment: If Creatinine is < 40 mg/dL, recollection is suggested. 12/30/2019 7:15 PM CDT 12/30/2019 6:52 PM CDT Narrative [facility] NAMED [facility] - 12/30/2019 7:15 PM CDT Collected By mkr Resulting Agency Comment ER us Earline GARCIA LAB URINE ORDERABLES Final Resul t [facility]AMED [facility] [address] [place] [address], [facility] [phone] * (ABNORMAL) URINALYSIS, COMPLETE W/REFLEX TO CULTURE (12/30/2019 1:19 PM CDT) Ur Collection Type CLEAN CATCH [facility] NAMED [facility] Ur Culture Indicated? C S NOT INDICATED [facility] Urine Color AMANDA YELLOW [facility] NAM[facility] Urine Clarity CLEAR CLEAR [facility] Urine Glucose (UA) NORMAL NORMAL mg/dL [facility] Urine Bilirubin NEGATIVE NEGATIVE mg/dl [facility] Urine Ketones NEGATIVE NEGATIVE mg/dL [facility] Ur Specific Bluebell 1.017 1.005 - 1.025 [facility] NAM[facility] Urine Blood 0.2(A) NEGATIVE mg/dl [facility] Urine pH 7.0 5.0 - 8.0 [facility] Urine Protein NEGATIVE NEGATIVE mg/dL [facility] Urine Urobilinogen NORMAL NORMAL mg/dL [facility] Urine Nitrite NEGATIVE NEGATIVE [facility] Ur Leukocyte Esterase NEGATIVE NEGATIVE Jimmy/ul [facility]AM[facility] Ur Microscopic Review Indicated or Ordered [facility]AM[facility] Urine RBC 29 0 - 2 /HPF [facility] Urine WBC 1 0 - 2 /HPF [facility] Urine Mucus RARE /LPF [facility] Hyaline Casts 3 0 - 2 /LPF [facility] 12/30/2019 1:19 PM CDT 12/30/2019 1:28 PM CDT Narrative [facility] NAMED [facility] - 12/30/2019 1:47 PM CDT Indication(s) for ordering ?? Other - enter in comments CJ Clean catch Resulting Agency Comment ER us Veronica GARCIA LAB URINE ORDERABLES Fin al Result Performing Organization Address City/[facility]/ZIP Co de Phone Number [address] [phone] * Ethanol (12/30/2019 1:17 PM CDT) Pathologist [facility] Ethyl Alcohol <10 mg/dL [facility] Comment: Result may be decreased-specimen uncapped for extended time. % = mg/dL x .001 12/30/2019 1:17 PM CDT 12/30/2019 1:22 PM CDT Narrative [facility] NAMED [facility] - 12/30/2019 4:46 PM CDT Result may be decreased-specimen uncapped for extended time. Resulting Agency Comment ER us Earline GARCIA LAB BLOOD ORDERABLES Final Resul t Performing Organization Address [facility] Co de Phone Number [address] [phone] * (ABNORMAL) Lipase (12/30/2019 1:17 PM CDT) Pathologist [facility] Lipase 555(H) 13 - 60 U/L [facility] 12/30/2019 1:17 PM CDT 12/30/2019 1:22 PM CDT Narrative Resulting Agency Comment ER us Veronica GARCIA LAB BLOOD ORDERABLES Fin al Result Performing Organization Address City/[facility]/ZIP Co de Phone Number [address] [phone] * (ABNORMAL) Comprehensive metabolic panel (12/30/2019 1:17 PM CDT) Sodium 135 135 - 145 mmol/L [facility] Potassium 3.8 3.3 - 5.1 mmol/L [facility] Chloride 102 96 - 108 mmol/L [facility] Carbon Dioxide 25 22 - 32 mmol/L [facility] Anion Gap 8 7 - 16 [facility] Glucose 113(H) 70 - 100 mg/dL [facility] BUN 7(L) 8 - 25 mg/dL [facility] Creatinine 0.6 0.5 - 1.3 mg/dL [facility] Comment: The specimen is icteric. ??A high bilirubin level is known to cause a false decrease in measured creatinine. NOTE: Estimated GFR (Cockroft-Gault) will NOT be calculated unless patient Height and Weight were entered. Also, Kidney Disease Stage (GFR) and Estimated GFR (Cockroft-Gault) will NOT be calculated if Creatinine result is <0.2. Kidney Disease Stage >90 mL/MIN [facility] Comment: NOTE; ??The GFR is an estimated value using the creatinine, sex, age, and race of the patient. THE Estimated Kidney Disease GFR is validated for AGES 18-70 YEARS STAGE ?mL/Min ?DESCRIPTION ??1 ?90 mL/min or more ?Normal or elevated GFR ??2 ? 60-89 mL/min ?Mildly decreased GFR ??3 ? 30-59 mL/min ?Moderately decreased GFR ??4 ? 15-29 mL/min ?Severely decreased GFR ??5 ? <15 mL/min ? Kidney failure or on dialysis Est GFR (Cockcroft-G) 173 ml/MIN [facility] Comment: Estimated GFR(Cockroft-Gault)is used to calculate patient medication dosage Calcium 8.3(L) 8.6 - 10.3 mg/dL [facility] Total Protein 7.6 6.4 - 8.3 g/dL [facility] Albumin 2.4(L) 3.5 - 5.0 g/dL [facility] Globulin 5.2(H) 2.3 - 3.5 gm/dL [facility] Albumin/Globulin Ratio 0.5(L) 1.1 - 1.8 [facility] Total Bilirubin 3.6(H) 0.0 - 1.2 mg/dL [facility] AST 198(H) 0 - 40 U/L [facility] ALT 55(H) 0 - 41 U/L [facility] Alkaline Phosphatase 138(H) 40 - 129 U/L [facility] 12/30/2019 1:17 PM CDT 12/30/2019 1:22 PM CDT Narrative Resulting Agency Comment ER Veronica GARCIA LAB BLOOD ORDERABLES Obdulio aguilar Result [facility] [address] [place] [address], [facility] [phone] * Troponin I (12/30/2019 1:17 PM CDT) Troponin I <0.300 0.000 - 0.300 ng/mL [facility] Comment: Reference using HARJIT Chemiluminescence ? Negative: Repeat in 4-6 hours as indicated. 12/30/2019 1:17 PM CDT 12/30/2019 1:22 PM CDT Narrative [facility] - 12/30/2019 4:46 PM CDT Result may be decreased-specimen uncapped for extended time. Resulting Agency Comment ER us Earline GARCIA LAB BLOOD ORDERABLES Final Resul t Performing Organization Address City/[facility]/ZIP Co de Phone Number [address] [phone] * aPTT (12/30/2019 1:17 PM CDT) Pathologist [facility] APTT 36 27 - 36 SECONDS [facility] 12/30/2019 1:17 PM CDT 12/30/2019 1:22 PM CDT Narrative Resulting Agency Comment ER Veronica GARCIA LAB BLOOD ORDERABLES Fin al Result Performing Organization Address [facility] de Phone Number [address] [phone] * (ABNORMAL) Protime-INR (12/30/2019 1:17 PM CDT) Pathologist [facility] PT 21.0(H) 12.2 - 14.8 SECONDS [facility] INR 1.74 [facility] Comment: Recommended Therapeutic range for Oral Anticoagulant Therapy No anti-coagulation therapy ? Normal Range: ?0.8-1.4 Anti-coagulation therapy ? Low intensity therapy ?2.0-3.0 ? High intensity therapy ?? 2.5-3.5 Critical Value ? Greater than or equal to 5.0 Patients should be monitored for serious bleeding. 12/30/2019 1:17 PM CDT 12/30/2019 1:22 PM CDT Narrative Resulting Agency Comment ER Veronica GARCIA LAB BLOOD ORDERABLES Fin al Result Performing Organization Address [facility] Co de Phone Number [address] [phone] * (ABNORMAL) CBC with auto differential (12/30/2019 1:17 PM CDT) WBC 12.3(H) 3.8 - 9.9 X10 3/ul [facility] RBC 3.95(L) 4.30 - 5.80 x10 6/ul [facility] Hemoglobin 12.3(L) 13.0 - 17.5 g/dL [facility] Hct 38.7(L) 38.9 - 50.3 % [facility] MCV 98.0(H) 81.3 - 96.4 fl [facility] MCH 31.1 27.1 - 33.3 pg [facility] MCHC 31.8(L) 32.3 - 35.7 g/dl [facility] RDW 20.2(H) 11.1 - 14.9 % [facility] Plt Count 207 150 - 400 x10 3/ul [facility] MPV 9.4 9.1 - 12.3 fl [facility] Neut % 77.1 % [facility] Immature Gran % 0.3 % [facility] Lymph % 11.5 % [facility] Ionia % 9.6 % [facility] Eos % 1.3 % [facility] AUTO BASO % 0.2 % [facility] NEUTROPHIL ABS # 9.5(H) 1.7 - 6.5 x10 3/ul [facility] Immature Gran # 0.0 0.0 - 0.1 x10 3/ul [facility] Absolute Lymphs (auto) 1.4 0.8 - 3.3 x10 3/ul [facility] Absolute Monos (auto) 1.2(H) 0.2 - 0.8 x10 3/ul [facility] Absolute Eos (auto) 0.2 0.0 - 0.5 x10 3/ul [facility] BASOPHIL ABS # 0.0 0.0 - 0.1 x10 3/ul FORMER[facility] NAMED [facility] Nucleat RBC Rel Count 0.0 #/100WBC FORMERLY NAMED [facility] NRBC abs 0.00 0.00 - 0.01 x10 3/ul [facility] NAMED [facility] Absolute Neutrophils 9,500(H) 200 - 8,000 /ul FOR[facility] NAMED [facility] 12/30/2019 1:17 PM CDT 12/30/2019 1:22 PM CDT Narrative Resulting Agency Comment ER Veronica GARCIA LAB BLOOD ORDERABLES Fin al Result Performing Organization Address [facility] Co de Phone Number FORMERLY NAMED [facility] [address] [place] [address], [facility] [phone] * ECG 12 lead (12/30/2019 1:04 PM CDT) Ventricular Rate EKG/Min 89 BPM ER RADIOLOGY Atrial Rate 89 BPM ER RADIOLOGY NM-Interval (MSEC) 126 ms ER RADIOLOGY QRS-Interval (MSEC) 82 ms ER RADIOLOGY QT-Interval (MSEC) 394 ms ER RADIOLOGY QTc 479 ms ER RADIOLOGY P [place] 6 degrees ER RADIOLOGY R [place] 10 degrees ER RADIOLOGY T [place] -1 degrees ER RADIOLOGY Diagnosis Normal sinus rhythm Normal ECG When compared with ECG of 26-DEC-2019 23:34, Premature ventricular complexes are no longer Present Inverted T waves have replaced nonspecific T wave abnormality in Inferior leads ER RADIOLOGY 12/30/2019 1:04 PM CDT 12/30/2019 3:40 PM CDT Narrative Resulting Agency Comment LAURA Veronica GARCIA ECG ORDERABLES Final Re sult Performing Organization Address [facility] de Phone Number ER RADIOLOGY * XR Chest 1 View (12/30/2019 11:35 AM CDT) Anatomical Region Laterality Modality Body, Chest N/A Radiographic Lynette ging 12/30/2019 12:3 0 PM CDT Narrative 12/30/2019 12:35 PM CDT Patient Name: JARED BRUMFIELD JR ?Ordering Dr: Veronica Blake PA-C ?? D.O.B: 1970 ? Exam Date: 12/30/19 ?? 1135 ?? Age: 49 ?Sex: Male ? MR#: [id number] ?? Loc: ? RADIOLOGY REPORT ?? Order #[id number] ?? Radiology ? Chest 1 View ? Signed ?? EXAM DESCRIPTION: ?? Chest 1 View ? REASON FOR STUDY: ?? Chest pain with abdominal swelling and rash for 2 weeks. ? TECHNIQUE: ?? Frontal radiographic view of the chest acquired. ? COMPARISON: ?? Chest radiograph 12/26/2019, 12/22/2019 ? FINDINGS: ? LUNGS/PLEURA: ??No focal consolidation or pneumothorax. No large pleural ?? effusion. ? HEART/MEDIASTINUM: ??Heart size is normal. Normal mediastinal and hilar ?? contours. ? HARDWARE/LINES/TUBES: ??None. ? BONES: ??No acute findings. ? OTHER: ??No other significant finding. ? IMPRESSION: ? 1. ?? No acute radiographic abnormality. ? THIS IS AN ELECTRONICALLY VERIFIED FINAL REPORT ?? 12/30/2019 12:35 PM - Electronically signed by Darron Gandhi M.D. ?? Darron Gandhi M.D. ? LB ?? D: ??12/30/2019 12:35 PM ?? T: ? Report ID: [id number] ?? Reading Location: ??[id number] ? REPORT ELECTRONICALLY SIGNED IN OTHER VENDOR SYSTEM ?? Resulting Agency Comment E Procedure Note Darron Gandhi MD - 12/30/2019 Patient Name: OCTAVIANOJARED Dr: Veronica Blake PA-C, D.O.B: 1970 Exam Date: 12/30/19 1135 Age: 49 Sex: Male MR#: [id number] Loc: RADIOLOGY REPORT Order #[id number] Radiology Chest 1 View Signed EXAM DESCRIPTION: Chest 1 View REASON FOR STUDY: Chest pain with abdominal swelling and rash for 2weeks. TECHNIQUE: Frontal radiographic view of the chest acquired. COMPARISON: Chest radiograph 12/26/2019, 12/22/2019 FINDINGS: LUNGS/PLEURA: No focal consolidation or pneumothorax. No large pleural effusion. HEART/MEDIASTINUM: Heart size is normal. Normal mediastinal and hilar contours. HARDWARE/LINES/TUBES: None. BONES: No acute findings. OTHER: No other significant finding. IMPRESSION: 1. No acute radiographic abnormality. THIS IS AN ELECTRONICALLY VERIFIED FINAL REPORT 12/30/2019 12:35 PM - Electronically signed by Darron Gandhi M.D. LB T: Report ID: [id number] Reading Location: [place] [address] REPORT ELECTRONICALLY SIGNED IN OTHER VENDOR SYSTEM us Veronica GARCIA IMMary Lou XR PROCEDURES Final Result * CT Abdomen Pelvis W Contrast (12/30/2019 11:33 AM CDT) Anatomical Region Laterality Modality Body N/A Computed Tomogra phy 12/30/2019 4:24 PM CDT Narrative 12/30/2019 4:39 PM CDT Patient Name: JARED BRUMFIELD JR ?Ordering Dr: Veronica Blake PA-C ?? D.O.B: 1970 ? Exam Date: 12/30/19 ?? 1133 ?? Age: 49 ?Sex: Male ? MR#: [id number] ?? Loc: ? RADIOLOGY REPORT ?? Order #[id number] ?? CT Scan ? CT Abd/Pelvis W IV Contrast ? Signed ?? EXAM DESCRIPTION: ?? CT Abd/Pelvis W IV Contrast ? REASON FOR STUDY: ?? Abdominal swelling and loose stools. ??History of cirrhosis. ? TECHNIQUE: ??CT scan of the abdomen and pelvis performed with intravenous and ? without oral contrast using helical scanning technique with dynamic ?? intravenous contrast injection. Reconstructed coronal and sagittal MPR images ?? reviewed. All images stored on PACS. ? Automated exposure control was used as a dose optimization technique for this ?? examination. ? CONTRAST TYPE/DOSE: ?? 100 mL of Optiray 350 injected via ??right antecubital ?? vein. ??No adverse reaction reported. ? COMPARISON: ?? CT abdomen and pelvis 12/19/2019 ? FINDINGS: ? LOWER CHEST: ??Minimal atelectasis within the lingula. ??No pleural effusion. ? Improved aeration in the left base. ? LIVER: ??Cirrhotic liver morphology. ??No liver lesion is identified. ? GALLBLADDER: ??The gallbladder is decompressed and incompletely evaluated. ? BILE DUCTS: ??No intrahepatic or extrahepatic ductal dilatation. ? SPLEEN: ??Spleen is borderline enlarged. ??No focal lesion identified. ? PANCREAS: ??No identified cystic or solid masses. No significant ?? calcifications. No adjacent inflammation or peripancreatic fluid collections. ?? Pancreatic duct not dilated. ? ADRENALS: ??Normal. ? KIDNEYS/URINARY TRACT: ??No identified significant cystic or solid masses. No ?? visualized stones. No hydronephrosis or hydroureter. Symmetric enhancement. ? Urinary bladder is unremarkable. ? GI: ??Mild sigmoid colon diverticulosis. ??Evaluation for diverticulitis is ?? limited by abdominopelvic ascites. ??Interval decrease in the diffuse colonic ?? wall thickening with some mild wall thickening remaining in the transverse ?? colon. ??Probable normal appearing appendix (image 110). ??No dilated loops of ?? bowel to suggest obstruction. ? PERITONEUM: ??No free air. ??Moderate abdominopelvic ascites. ? RETROPERITONEUM: ??No mass or adenopathy. ? REPRODUCTIVE: ??No significant abnormality. ? VASCULATURE: ??No abdominal aortic aneurysm. ??Splenorenal shunt present in the ?? left upper abdomen. ??Circumaortic left renal vein. ? MUSCULOSKELETAL: ??Tiny fat containing umbilical hernia. ??No destructive ?? osseous lesion. ? OTHER: ??Minimal diffuse subcutaneous edema.. ? IMPRESSION: ? 1. ??Interval decrease in the bowel wall thickening with minimal wall ?? thickening remaining in the transverse colon. ? 2. ??Moderate abdominopelvic ascites has increased. ? 3. ??Hepatic cirrhosis with evidence of portal hypertension. ??Splenorenal ?? shunts present. ??Mild sigmoid colon diverticulosis. ??Evaluation for ?? diverticulitis is limited by ascites. ? THIS IS AN ELECTRONICALLY VERIFIED FINAL REPORT ?? 12/30/2019 4:39 PM - Electronically signed by Darron Gandhi M.D. ?? Darron Gandhi M.D. ? LB ?? D: ??12/30/2019 4:39 PM ?? T: ? Report ID: [id number] ?? Reading Location: ??[id number] ? REPORT ELECTRONICALLY SIGNED IN OTHER VENDOR SYSTEM ?? Resulting Agency Comment E Procedure Note Darron Gandhi MD - 12/30/2019 Patient Name: GER BRUMFIELDDIRK Chowdhury Dr: Veronica Blake PA-C, D.O.B: 1970 Exam Date: 12/30/19 1133 Age: 49 Sex: Male MR#: [id number] Loc: RADIOLOGY REPORT Order #[id number] CT Scan CT Abd/Pelvis W IV Contrast Signed EXAM DESCRIPTION: CT Abd/Pelvis W IV Contrast REASON FOR STUDY: Abdominal swelling and loose stools. History ofcirrhosis. TECHNIQUE: CT scan of the abdomen and pelvis performed with intravenousand without oral contrast using helical scanning technique with dynamic intravenous contrast injection. Reconstructed coronal and sagittal MPRimages reviewed. All images stored on PACS. Automated exposure control was used as a dose optimization technique forthis examination. CONTRAST TYPE/DOSE: 100 mL of Optiray 350 injected via rightantecubital vein. No adverse reaction reported. COMPARISON: CT abdomen and pelvis 12/19/2019 FINDINGS: LOWER CHEST: Minimal atelectasis within the lingula. No pleuraleffusion. Improved aeration in the left base. LIVER: Cirrhotic liver morphology. No liver lesion is identified. GALLBLADDER: The gallbladder is decompressed and incompletely evaluated. BILE DUCTS: No intrahepatic or extrahepatic ductal dilatation. SPLEEN: Spleen is borderline enlarged. No focal lesion identified. PANCREAS: No identified cystic or solid masses. No significant calcifications. No adjacent inflammation or peripancreatic fluidcollections. Pancreatic duct not dilated. ADRENALS: Normal. KIDNEYS/URINARY TRACT: No identified significant cystic or solid masses.No visualized stones. No hydronephrosis or hydroureter. Symmetricenhancement. Urinary bladder is unremarkable. GI: Mild sigmoid colon diverticulosis. Evaluation for diverticulitis is limited by abdominopelvic ascites. Interval decrease in the diffusecolonic wall thickening with some mild wall thickening remaining in thetransverse colon. Probable normal appearing appendix (image 110). No dilated loopsof bowel to suggest obstruction. PERITONEUM: No free air. Moderate abdominopelvic ascites. RETROPERITONEUM: No mass or adenopathy. REPRODUCTIVE: No significant abnormality. VASCULATURE: No abdominal aortic aneurysm. Splenorenal shunt present inthe left upper abdomen. Circumaortic left renal vein. MUSCULOSKELETAL: Tiny fat containing umbilical hernia. No destructive osseous lesion. OTHER: Minimal diffuse subcutaneous edema.. IMPRESSION: 1. Interval decrease in the bowel wall thickening with minimal wall thickening remaining in the transverse colon. 2. Moderate abdominopelvic ascites has increased. 3. Hepatic cirrhosis with evidence of portal hypertension. Splenorenal shunts present. Mild sigmoid colon diverticulosis. Evaluation for diverticulitis is limited by ascites. THIS IS AN ELECTRONICALLY VERIFIED FINAL REPORT 12/30/2019 4:39 PM - Electronically signed by Darron Gandhi M.D. 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
--- OUTSIDE RECORDS SUMMARY | 2024-06-27 04:54 | XMS_ITS | Encounter Summary ---
Author Organization [facility] Healthcare Address [address] [place] [address] Care Team Providers Care Parts Clerk Plant Maintenance Name Role Phone Jayne Bowen MD Primary Care Provider + Encounter Details Date Type Department Care Team (Late st Contact Info) Description 01/02/2020 8:00 AM CDT Lab [address] [address] Social History Tobacco Use Types Packs/Day Years [...] Procedure Name Priority Date/Time Associated Diagnosis Comments COVID-19 CORONAVIRUS RNA Routine 01/02/2020 3:35 AM CDT documented in this encounter Results * COVID-19 Coronavirus RNA Nasopharyngeal (01/02/2020 3:35 AM CDT) COVID-19 RNA Not Detected [facility] Comment: Interpretive Data Testing performed at [facility]ious [facility]. The 2018-Novel Coronavirus Assay (COVID-19) Real Time RT-PCR assay is for in vitro diagnostic use under FDA emergency use authorization only. A negative RT-PCR result does not preclude infection with COVID-19 and should not be used as the sole basis for treatment or other patient management decisions. Additional sample types have been validated according to CLIA regulations. ?? Current Interpretive Data was last revised on 2019. 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
--- OUTSIDE RECORDS SUMMARY | 2024-06-27 04:54 | XMS_ITS | Encounter Summary ---
Author Organization [facility] Healthcare Address [address] [place] [address] Care Team Providers Care Ux Design Lead Name Role Phone Jayne Bowen MD Primary Care Provider + Encounter Details Date Type Department Care Team (Late st Contact Info) Description 12/26/2019 11:30 PM CDT - 12/27/2019 4:25 AM CDT Hospital Encounter [address] [address] Unknown, Kristie Royal MD [facility] [place] [address] Discharge Disposition: Discharge to home or self [...] Sign Reading Time Taken Comments Blood Pressure 132/78 12/26/2019 11:31 PM CDT Pulse 77 12/26/2019 11:31 PM CDT Temperature 36.9 ??C (98.4 ??F) 12/26/2019 11:31 PM C DT Respiratory Rate - - Oxygen Saturation 97% 12/26/2019 11:31 PM CDT Inhaled Oxygen Concentration - - Weight 67.1 kg (148 lb) 12/26/2019 11:31 PM CDT Height 182.9 cm (6') 12/26/2019 11:31 PM CDT Body Mass Index 20.07 12/26/2019 11:31 PM CDT documented in this encounter Medications [...] Procedure Name Priority Date/Time Associated Diagnosis Comments SEPSIS LACTATE Routine 12/27/2019 12:03 AM CDT TNI WITH LIPID PANEL Routine 12/27/2019 12:03 AM CDT CBC WITH AUTO DIFFERENTIAL Routine 12/27/2019 12:03 AM CDT APTT Routine 12/27/2019 12:03 AM CDT PROTIME-INR Routine 12/27/2019 12:03 AM CDT COMPREHENSIVE METABOLIC PANEL Routine 12/27/2019 12:03 AM CDT ECG 12-LEAD 12/26/2019 11:34 PM CDT XR CHEST 1 VIEW 12/26/2019 12:00 AM CDT documented in this encounter Results * (ABNORMAL) aPTT (12/27/2019 12:03 AM CDT) APTT 45(H) 27 - 36 SECONDS [facility] 12/27/2019 12:0 3 AM CDT 12/27/2019 1:12 AM CDT Narrative Resulting Agency Comment ER us Kristie Villegas MD LAB BLOOD ORDERABLES Jasmin l Result Performing Organization Address [facility] de Phone Number [address] [phone] * (ABNORMAL) Protime-INR (12/27/2019 12:03 AM CDT) PT 20.9(H) 12.2 - 14.8 SECONDS [facility] INR 1.74 [facility] Comment: Recommended Therapeutic range for Oral Anticoagulant Therapy No anti-coagulation therapy ? Normal Range: ?0.8-1.4 Anti-coagulation therapy ? Low intensity therapy ?2.0-3.0 ? High intensity therapy ?? 2.5-3.5 Critical Value ? Greater than or equal to 5.0 Patients should be monitored for serious bleeding. 12/27/2019 12:0 3 AM CDT 12/27/2019 1:12 AM CDT Narrative Resulting Agency Comment ER us Kristie Villegas MD LAB BLOOD ORDERABLES Jasmin l Result Performing Organization Address [facility] Co de Phone Number [address] [phone] * TNI with LIPID PANEL (12/27/2019 12:03 AM CDT) Troponin I <0.300 0.000 - 0.300 ng/mL [facility] Comment: Reference using HARJIT Chemiluminescence ? Negative: Repeat in 4-6 hours as indicated. Triglycerides 74 0 - 149 mg/dL [facility] Comment: National Lipid Association/NCEP Guidelines: ?? Normal ?< 150 mg/dL ?? Borderline high ?? 150-199 mg/dL ?? High ?200-499 mg/dL ?? Very High ? >=500 mg/dL Cholesterol 68 0 - 199 mg/dL [facility] Comment: National Lipid Association/NCEP Guidelines: Desirable ? < 200 mg/dL Borderline high: ??200-239 mg/dL High Risk: ?>=240 mg/dL HDL Cholesterol 14 mg/dL [facility] Comment: Reference Ranges: ? Males: >=40 mg/dL ? Females: >=50 mg/dL LDL Cholesterol, Calc 39 0 - 129 mg/dL [facility] Comment: National Lipid Association/NCEP Guidelines: ??Optimal ? < 100 mg/dL ??Near Optimal ?100-129 mg/dL ??Borderline high 130-159 mg/dL ??High ?>=160 mg/dL Cholesterol/HDL Ratio 4.9 [facility] Comment: Optimal ??< 3.5:1 High ? > 5:1 12/27/2019 12:0 3 AM CDT 12/27/2019 12:07 AM CDT Narrative Resulting Agency Comment ER us Kristie Villegas MD LAB BLOOD ORDERABLES Jasmin daniel Result [facility] [address] [place] [address], [facility] [phone] * (ABNORMAL) Comprehensive metabolic panel (12/27/2019 12:03 AM CDT) Sodium 130(L) 135 - 145 mmol/L [facility] Potassium 3.7 3.3 - 5.1 mmol/L [facility] Chloride 99 96 - 108 mmol/L [facility] Carbon Dioxide 22 22 - 32 mmol/L [facility] Anion Gap 9 7 - 16 [facility] Glucose 111(H) 70 - 100 mg/dL [facility] BUN 6(L) 8 - 25 mg/dL [facility] Creatinine 0.6 0.5 - 1.3 mg/dL [facility] Comment: The specimen is icteric. A high bilirubin level is known to cause a false decrease in measured creatinine. NOTE: Estimated GFR (Cockroft-Gault) will NOT be calculated unless patient Height and Weight were entered. Also, Kidney Disease Stage (GFR) and Estimated GFR (Cockroft-Gault) will NOT be calculated if Creatinine result is <0.2. Kidney Disease Stage >90 mL/MIN [facility] Comment: NOTE; ??The GFR is an estimated [...] failure or on dialysis Est GFR (Cockcroft-G) 143 ml/MIN [facility] Comment: Estimated GFR(Cockroft-Gault)is used to calculate patient medication dosage Calcium 7.7(L) 8.6 - 10.3 mg/dL [facility] Total Protein 7.4 6.4 - 8.3 g/dL [facility] Albumin 2.0(L) 3.5 - 5.0 g/dL [facility] Globulin 5.4(H) 2.3 - 3.5 gm/dL [facility] Albumin/Globulin Ratio 0.4(L) 1.1 - 1.8 [facility] Total Bilirubin 3.0(H) 0.0 - 1.2 mg/dL [facility] AST 111(H) 0 - 40 U/L [facility] ALT 24 0 - 41 U/L [facility] Alkaline Phosphatase 106 40 - 129 U/L [facility] 12/27/2019 12:0 3 AM CDT 12/27/2019 12:07 AM CDT Narrative Resulting Agency Comment ER us Kristie Villegas MD LAB BLOOD ORDERABLES Jasmin l Result Performing Organization Address City/State/[facility] Co md Phone Number [facility] [address] [phone] * Sepsis Lactate (12/27/2019 12:03 AM CDT) Sepsis lactate 1.6 mmol/L [facility] Comment: Lactate Reference Range: 0.5 - 2.2 mmol/L 12/27/2019 12:0 3 AM CDT 12/27/2019 12:07 AM CDT Narrative Resulting Agency Comment ER Kristie Villegas MD LAB BLOOD ORDERABLES Jasmin l Result [facility] [address] [place] [address], [facility] [phone] * (ABNORMAL) CBC with auto differential (12/27/2019 12:03 AM CDT) WBC 10.3(H) 3.8 - 9.9 X10 3/ul [facility] Comment: Results reviewed RBC 3.34(L) 4.30 - 5.80 x10 6/ul [facility] Hemoglobin 10.4(L) 13.0 - 17.5 g/dL [facility] Hct 30.4(L) 38.9 - 50.3 % [facility] MCV 91.0 81.3 - 96.4 fl [facility] MCH 31.1 27.1 - 33.3 pg [facility] MCHC 34.2 32.3 - 35.7 g/dl [facility] RDW 21.1(H) 11.1 - 14.9 % [facility] Plt Count 141(L) 150 - 400 x10 3/ul [facility] MPV 9.7 9.1 - 12.3 fl [facility] Neut % 79.0 % [facility] Immature Gran % 0.4 % [facility] Lymph % 9.9 % [facility] [place] % 8.7 % [facility] Eos % 1.1 % [facility] AUTO BASO % 0.9 % [facility] NEUTROPHIL ABS # 8.1(H) 1.7 - 6.5 x10 3/ul [facility] Immature Gran # 0.0 0.0 - 0.1 x10 3/ul [facility] Absolute Lymphs (auto) 1.0 0.8 - 3.3 x10 3/ul [facility] Absolute Monos (auto) 0.9(H) 0.2 - 0.8 x10 3/ul [facility] Absolute Eos (auto) 0.1 0.0 - 0.5 x10 3/ul [facility] BASOPHIL ABS # 0.1 0.0 - 0.1 x10 3/ul [facility] Nucleat RBC Rel Count 0.0 #/100WBC [facility] NRBC abs 0.00 0.00 - 0.01 x10 3/ul [facility] Absolute Neutrophils 8,100(H) 200 - 8,000 /ul [facility] 12/27/2019 12:0 3 AM CDT 12/27/2019 12:07 AM CDT Narrative Resulting Agency Comment ER Kristie Villegas MD LAB BLOOD ORDERABLES Jasmin l Result Performing Organization Address [facility] Co de Phone Number [address] [phone] * ECG 12 lead (12/26/2019 11:34 PM CDT) Ventricular Rate EKG/Min 104 BPM ER RADIOLOGY Atrial Rate 104 BPM ER RADIOLOGY VA-Interval (MSEC) 136 ms ER RADIOLOGY QRS-Interval (MSEC) 86 ms ER RADIOLOGY QT-Interval (MSEC) 384 ms ER RADIOLOGY QTc 504 ms ER RADIOLOGY P [place] 23 degrees ER RADIOLOGY R [place] 22 degrees ER RADIOLOGY T [place] 32 degrees ER RADIOLOGY Diagnosis Sinus tachycardia Occasional Premature ventricular complexes Otherwise normal ECG When compared with ECG of 10-DEC-2019 08:58, No significant change was found ER RADIOLOGY 12/26/2019 11:3 4 PM CDT 12/27/2019 11:38 AM CDT Narrative Resulting Agency Comment LAURA Kristie Villegas MD ECG ORDERABLES Final Res ult Performing Organization Address [facility] Co de Phone Number ER RADIOLOGY * XR Chest 1 View (12/26/2019 12:00 AM CDT) Anatomical Region Laterality Modality Body, Chest N/A Radiographic Lynette ging 12/27/2019 12:3 6 AM CDT Narrative 12/27/2019 12:37 AM CDT Patient Name: CHESTER BRUMFIELD JR ?Ordering Dr: Kristie Villegas MD ?? D.O.B: 1970 ? Exam Date: 12/26/19 ?? 0000 ?? Age: 49 ?Sex: Male ? MR#: [id number] ?? Loc: ? RADIOLOGY REPORT ?? Order #[id number] ?? Radiology ? Chest 1 View Portable ? Signed ?? EXAM DESCRIPTION: ?? Chest 1 View Portable ? REASON FOR STUDY: ?? increased SOB tonight, hx recent ascites ? TECHNIQUE: ?? Portable upright AP radiographic view of the chest acquired. ? COMPARISON: ?? 12/22/2019 ? FINDINGS: ? LUNGS/PLEURA: ??No focal consolidation or pneumothorax. No pleural effusion. ? HEART/MEDIASTINUM: ??Heart size is stable. ??Unchanged mediastinal and hilar ?? contours. ? HARDWARE/LINES/TUBES: ??None. ? BONES: ??No acute findings. ? OTHER: ??No other significant finding. ? IMPRESSION: ?? No acute cardiopulmonary disease. ? THIS IS AN ELECTRONICALLY VERIFIED FINAL REPORT ?? 12/27/2019 12:37 AM - Electronically signed by Lamar Becker M.D. ?? Lamar Becker M.D. ? JS ?? D: ??12/27/2019 12:37 AM ?? T: ? Report ID: [id number] ?? Reading Location: ??[id number] ? REPORT ELECTRONICALLY SIGNED IN OTHER VENDOR SYSTEM ?? Resulting Agency Comment E Procedure Note Lamar Becker MD - 12/27/2019 Patient Name: CHESTER BRUMFIELD JROrdering Dr: Kristie Villegas MD DDenisO.B: 1970 Exam Date: 12/26/19 0000 Age: 49 Sex: Male MR#: [id number] Loc: RADIOLOGY REPORT Order #[id number] Radiology Chest 1 View Portable Signed EXAM DESCRIPTION: Chest 1 View Portable REASON FOR STUDY: increased SOB tonight, hx recent ascites TECHNIQUE: Portable upright AP radiographic view of the chest acquired. COMPARISON: 12/22/2019 FINDINGS: LUNGS/PLEURA: No focal consolidation or pneumothorax. No pleuraleffusion. HEART/MEDIASTINUM: Heart size is stable. Unchanged mediastinal andhilar contours. HARDWARE/LINES/TUBES: None. BONES: No acute findings. OTHER: No other significant finding. IMPRESSION: No acute cardiopulmonary disease. 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
--- OUTSIDE RECORDS SUMMARY | 2024-06-27 04:54 | XMS_ITS | Encounter Summary ---
Author Organization [facility] Address [address] [address] Care Team Providers Care Workers' Compensation Magistrate Name Role Phone Unavailable Primary Care Provider Unavailabl e Reason for Visit * Reason Comments Restless Legs bilat lower legs Encounter Details Date Type Department Care Team (Latest Contact Info) Description 06/08/2020 12:45 PM INSERT OPERATOR Office Visit [facility] Primary Care [address] [place] [phone] Aileen Olmstead PA [address] [place] [address] Drug-induced polyneuropathy (CMS/HCC) (Primary Dx); Restless leg syndrome Social History Tobacco Use Types Packs/Day Years [...] Sign Reading Time Taken Comments Blood Pressure 110/70 06/08/2020 12:57 PM INSERT OPERATOR Pulse 68 06/08/2020 12:57 PM INSERT OPERATOR Temperature 36 ??C (96.8 ??F) 06/08/2020 12:57 PM INSERT OPERATOR Respiratory Rate 16 06/08/2020 12:57 PM INSERT OPERATOR Oxygen Saturation 98% 06/08/2020 12:57 PM INSERT OPERATOR Inhaled Oxygen Concentration - - Weight 84 kg (185 lb 3.2 oz) 06/08/2020 12:57 PM INSERT OPERATOR Height 182.9 cm (6') 06/08/2020 12:57 PM INSERT OPERATOR Body Mass Index 25.12 06/08/2020 12:57 PM INSERT OPERATOR documented in this encounter Ordered Prescriptions Prescription Sig Dispense Quantity Refills Last Filled Start Date End Date gabapentin (NEURONTIN) 100 mg capsuleIndications :Neuropathic Pain Take 1 capsule (100 mg total) by mouth nightly 90 capsule 1 06/08/2020 1 documented in this encounter Progress Notes * Aileen Olmstead PA - 06/08/2020 12:45 PM CST Subjective/Objective Patient ID: Chester Dubose Jr. is a 49 y.o. male. 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 Previously responded well to night dose of gabapentin. Will restart that again. Orders: - gabapentin (NEURONTIN) 100 mg capsule; Take 1 capsule (100 mg total) by mouth nightly Restless leg syndrome Assessment & Plan: Chronic for years. Previously responded well to night dose of gabapentin. Will restart that again. Orders: - gabapentin (NEURONTIN) 100 mg capsule; Take 1 capsule (100 mg total) by mouth nightly No notes on file LABS Patient Active Problem List Diagnosis Date Noted ??? Restless leg syndrome 06/08/2020 ??? Drug-induced [...] Complaint Chief Complaint Patient presents with ??? Restless Legs bilat lower legs HPI Patient is here to address problem with restless legs x few years. Patient denies pedal edema. He also has chronic numbness and tingling in feet for years. He was on gabapentin for it and it worked great. He had to stop due to substance abuse. Now is abstinent from alcohol and drugs. He admits occ marijuana use. Review of Systems All other systems reviewed and are negative. Vitals BP 110/70 (BP Location: Left arm, Patient Position: Sitting) Pulse 68 Temp 36 ??C (96.8 ??F) (Transdermal) Resp 16 Ht 182.9 cm (6') Wt 84 kg (185 lb 3.2 oz) SpO2 98% BMI 25.12 kg/m?? Current Outpatient Medications Medication Sig Dispense [...] by mouth daily 30 tablet 3 ??? gabapentin (NEURONTIN) 100 mg capsule Take 1 capsule (100 mg total) by mouth nightly 90 capsule1 No current facility-administered medications for this visit. Physical Exam Constitutional: Appearance: He is well-developed. HENT: Head: Normocephalic and atraumatic. Cardiovascular: Rate and Rhythm: Normal rate and regular rhythm. Pulses: Dorsalis pedis pulses are 3+ on the right side and 3+ on the left side. Posterior tibial pulses are 3+ on the right side and 3+ on the left side. Heart sounds: No murmur. Pulmonary: Effort: Pulmonary effort is normal. Breath sounds: Normal breath sounds. Abdominal: General: Bowel sounds are normal. Palpations: Abdomen is soft. Tenderness: There is no abdominal tenderness. Feet: Right Foot: Monofilament exam: abnormal. Protective Sensation: 10 sites tested. 3 sites sensed. Skin Integrity: Negative for skin breakdown. Left Foot: Monofilament exam: abnormal. Protective Sensation: 10 sites tested. 3 sites sensed. Skin Integrity: Negative for skin breakdown. Skin: General: Skin is warm and dry. Findings: No rash. Neurological: Mental Status: He is alert and oriented to person, place, and time. RT OPERATOR documented in this encounter Miscellaneous Notes * Assessment & Plan Note - Aileen Olmstead PA - 06/08/2020 1:22 PM INSERT OPERATOR Associated Problem(s): Drug-induced polyneuropathy (HCC) Chronic for years. Previously responded well to night dose of gabapentin. Will restart that again. RT OPERATOR * Assessment & Plan Note - Aileen Olmstead PA - 06/08/2020 1:21 PM INSERT OPERATOR Associated Problem(s): Restless leg syndrome Chronic for years. Previously responded well to night dose of gabapentin. Will restart that again. 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
--- OUTSIDE RECORDS SUMMARY | 2024-06-27 04:54 | XMS_ITS | Encounter Summary ---
Author Organization [facility] Address [address] [place] [address] Phone Care Team Providers Care Floor Associate Name Role Phone LarryGriselda lawson Chika A AND P MECHANIC Primary Care Provide r Encounter Details Date Type Department Care Team (Late st Contact Info) Description 03/31/2020 Orders Only [facility] Gastroenterology [address] [facility] [address] [place] [address] [place] [phone] Celia Salazar RMA Social History Tobacco Use Types Packs/Day Years [...] Diagnoses Not on filedocumented in this encounter Historical Medications * This list may reflect changes made after this encounter. thiamine (VITAMIN B1) 100 mg tablet TAKE 2 TABLETS BY MOUTH ONCE DAILY FOR 30 DAYS 01/24/2020 05/27/2020 Phosphorous Supplement 280-160-250 mg powder in packet DISSOLVE & TAKE 1 PACKET IN WATER & DRINK THREE TIMES DAILY 02/23/2020 05/27/2020 lactulose 0.67 gram/mL solution TAKE 30 ML BY MOUTH EVERY 8 HOURS 02/23/2020 04/08/2020 famotidine (PEPCID) 20 mg tablet Take 20 mg by mouth 2 (two) times a day 01/24/2020 05/27/2020 chlordiazePOXIDE (LIBRIUM) 10 mg capsule 0 12/25/2019 05/27/2020 zolpidem (AMBIEN) 10 mg tablet 10 mg 03/08/2018 05/27/2020 Firvanq 50 mg/mL recon soln TAKE 10ML BY MOUTH EVERY 6 HOURS DISCARD REMAING QUANTITY 12/26/2019 05/27/2020 tamsulosin (FLOMAX) 0.4 mg extended release capsule Take 0.4 mg by mouth daily 12/25/2019 09/16/2020 spironolactone (ALDACTONE) 25 mg tablet TAKE 1 2 (ONE HALF) TABLET BY MOUTH ONCE DAILY 12/25/2019 04/08/2020 Xifaxan 550 mg tablet Take 550 mg by mouth 2 (two) times a day 12/25/2019 04/08/2020 QUEtiapine XR (SEROquel XR) 300 mg 24 hr tablet 300 mg 03/08/2018 05/27/2020 metoprolol tartrate (LOPRESSOR) 25 mg immediate release tablet TAKE 1 2 (ONE HALF) TABLET BY MOUTH EVERY 12 HOURS 12/25/2019 05/27/2020 magnesium oxide (MAG-OX) 400 mg (241.3 mg elemental magnesium) tablet Take 1 tablet by mouth 2 (two) times a day 12/25/2019 05/27/2020 HYDROcodone-acet aminophen (NORCO) 5-325 mg per tablet 0 12/26/2019 05/27/2020 amLODIPine (NORVASC) 5 mg tablet 5 mg 03/08/2018 05/27/2020 added in this encounter Additional Health Concerns Infection Onset Date Last Indicated Resolved Time 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 Care Teams Floor Associate Relationship Specialty Start Date End Date Griselda Juarez NP PCP - General Nurse Practitioner 01/07/20 04/07/20 documented as of this encounter
--- OUTSIDE RECORDS SUMMARY | 2024-06-27 04:54 | XMS_ITS | Encounter Summary ---
Author Organization [facility] Address [address] [place] [address] Care Team Providers Care Players Assistant Name Role Phone Unavailable Primary Care Provider Unavailabl e Reason for Referral * Diagnostic Imaging (Routine) - Closed Specialty Diagnoses / Procedures Referred By Contac t Referred To Contact Diagnoses Alcoholic cirrhosis of liver with ascites (CMS/HCC) (HCC) Procedures US Abdomen Limited Romeo Mahoney MD [id number] [place] [address] Phone: tel: fax: [address] [address] Referral ID Status Reason Start Date Expiration Date Visits Re quested Visits Authorized [id number] Closed 06/29/2020 07/29/2021 1 1 ERY CLERK Encounter Details Date Type Department Care Team (Late st Contact Info) Description 07/06/2020 11:49 AM GROCERY CLERK Hospital Encounter [facility] OP INTERIM Romeo Mahoney MD [address] [facility] [address] [place] [address] Alcoholic cirrhosis of liver with ascites (CMS/HCC) Social History Tobacco Use Types Packs/Day [...] mouth daily 30 tablet 3 03/03/2019 09/16/2020 gabapentin (NEURONTIN) 100 mg capsuleIndication s:Neuropathic Pain Take 1 capsule (100 mg total) by mouth nightly 90 capsule 1 06/08/2020 09/09/2020 lactulose 0.67 gram/mL solution Take 30 mL [...] LIMITED Schedule Routine, Read Routine (OP Routine) 07/06/2020 11:54 AM GROCERY CLERK Alcoholic cirrhosis of liver with ascites (CMS/HCC) documented in this encounter Results * US Abdomen Limited (07/06/2020 11:54 AM GROCERY CLERK) Anatomical Region Laterality Modality Abdomen N/A Ultrasound 07/06/2020 3:54 PM GROCERY CLERK Narrative 07/06/2020 3:59 PM GROCERY CLERK Patient Name: CHESTER BRUMFIELD ?Ordering Dr: Romeo Mahoney MD ?? D.O.B: 1970 ? Exam Date: 07/06/20 ?? 1154 ?? Age: 50 ?Sex: Male ? MR#: [id number] ?? Loc: ? RADIOLOGY REPORT ?? Order #[id number] ?? Ultrasound ? US Abdomen/Lmt Exam Spec [...] 3:59 PM ?? T: ? Report ID: [id number] ?? Reading Location: ??[id number] ? REPORT ELECTRONICALLY SIGNED IN OTHER VENDOR SYSTEM ?? Resulting Agency Comment O Procedure Note Mendoza Chand MD - 07/06/2020 Patient Name: CHESTER BRUMFIELD Dr: Romeo Mahoney MD D.O.B: 1970 Exam Date: 07/06/20 1154 Age: 50 Sex: Male MR#: [id number] Loc: RADIOLOGY REPORT Order #[id number] Ultrasound US Abdomen/Lmt Exam Spec Organ Signed [...] - Electronically signed by Mendoza Chand M.D. DI T: Report ID: [id number] Reading Location: [place] [address] REPORT ELECTRONICALLY SIGNED IN OTHER VENDOR SYSTEM Romeo Mahoney MD [facility] US PROCEDURES Jasmin l Result documented in this encounter Visit Diagnoses Diagnosis Alcoholic cirrhosis of liver with ascites (CMS/HCC) (HCC) documented in this encounter Additional Health Concerns Infection Onset Date Last Indicated Resolved Time 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
--- OUTSIDE RECORDS SUMMARY | 2024-06-27 04:55 | XMS_ITS | Encounter Summary ---
Author Organization [facility] Healthcare Address [address] [place] [address] Care Team Providers Care Tape Recorder Repairer Name Role Phone Bianca Chand MD Primary Care Provider Encounter Details Date Type Department Care Team (Late st Contact Info) Description 03/10/2019 Orders Only [facility] Primary Care Medicine Clinic [address] [facility] [address] [place] [address] Bianca Chand MD [address] [facility] [address] [place] [address] Social History Tobacco Use Types Packs/Day Years Used Date Smoking Tobacco: Former Cigarettes 1 40 Smokeless Tobacco: Former Alcohol Use Standard Drinks/Week Comments Yes 12 (1 standard drink = 0.6 oz pu re alcohol) last drink 02/19/19 Sex and Gender Information Value Date Recorded Sex Assigned at Not on file Legal Sex Male 8:48 AM CDT Gender Identity Not on file Sexual Orientation Not on file documented as of this encounter Progress Notes * Bianca Chand MD - 03/10/2019 6:13 PM CDT Called patient with updates on psych provider. Communicated to him that they had just contacted me wanting more information but I was still planning to get him an appointment with them as soon as possible (including ride to the appointment). He endorsed understanding and thanked me. documented in this encounter Plan of Treatment Not on file documented as of this encounter Visit Diagnoses Not on filedocumented in this encounter Additional Health Concerns Infection Onset Date Last Indicated Resolved Time 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 Care Teams Tape Recorder Repairer Relationship Specialty Start Date End Date Bianca Chand MD [address] [place] [id number] PCP - General Internal Medicine 03/02/19 06/02/19 documented as of this encounter
--- OUTSIDE RECORDS SUMMARY | 2024-06-27 04:55 | XMS_ITS | Encounter Summary ---
Author Organization [facility] Healthcare Address [address] [place] [address] Care Team Providers Care Services Account Manager Name Role Phone Bianca Chand MD Primary Care Provider Encounter Details Date Type Department Care Team (Late st Contact Info) Description 03/04/2019 Telephone [facility] Primary Care Medicine Clinic [address] [facility] [address] [place] [address] Bianca Chand MD [address] [facility] [address] [place] [address] Social History Tobacco Use Types [...] encounter Miscellaneous Notes * Telephone Encounter - Nilson Posadas - 03/04/2019 1:[address] Chand, Patient called about his rides for his appointments and the phys clinic . Please contact the patient to discuss this matter. 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
--- OUTSIDE RECORDS SUMMARY | 2024-06-27 04:55 | XMS_ITS | Encounter Summary ---
Author Organization [facility] Healthcare Address [address] [place] [address] Care Team Providers Care Educational Resource Coordinator Name Role Phone Jayne Bowen MD Primary Care Provider + Encounter Details Date Type Department Care Team ([facility] st Contact Info) Description 12/19/2019 5:55 PM CDT Lab [address] [address] Social History Tobacco Use Types Packs/Day Years [...] documented as of this encounter Care Teams Educational Resource Coordinator Relationship Specialty Start Date End Date Jayne Bowen MD [address] [place] [address] PCP - General 08/14/19 01/06/20 documented as of this encounter
--- OUTSIDE RECORDS SUMMARY | 2024-06-27 04:55 | XMS_ITS | Encounter Summary ---
Author Organization [facility] Address [address] [facility] [address] [place] [address] Care Team Providers Care Removable Prosthodontist Name Role Phone Jayne Bowen MD Primary Care Provider + Encounter Details Date Type Department Care Team (Late st Contact Info) Description 12/10/2019 Orders Only [address] [phone] Bibi Crews, [facility] [place] [id number] [facility] [place] [address] Social History Tobacco Use Types Packs/Day Years [...] Procedure Name Priority Date/Time Associated Diagnosis Comments CYTOLOGY Routine 12/10/2019 12:00 AM CDT documented in this encounter Results * Cytology (12/10/2019 12:00 AM CDT) 12/10/2019 12/10/2019 1:3 2 PM CDT Narrative 12/11/2019 9:06 AM CDT [facility] Department of Pathology [address] [place], [place] [address] ?? Final Report Patient Name: ??CHESTER BRUMFIELD JR : ??1970 (Age: 49) Gender: ??M Address: ?? [place], [place] ??[address] Hospital #: ??[id number] Service: ??TELE Location: ??2 Center Patient Type: ??Inpatient Taken: ??12/10/2019 Received: ??12/10/2019 Accessioned: ??12/10/2019 Reported: ??12/11/2019 Physician(s): ??Bibi Crews DO Diagnosis: Ascites fluid: No cytologic evidence of malignancy. ?? Keron Paul M.D. Report Electronically Reviewed and Signed Out By ??Keron Paul M.D. ??12/11/2019 09:06:09 Specimen(s) Received: A: Ascites Clinical History: Peritoneal Fluid/Ascites Gross Description: Received ~ 1200 ml cloudy hollis fluid. ??2 cytospin and 1 cell block are prepared. Slide Total at Time of Preparation: ??4 ?? Microscopic Description: Microscopic examination of cytospin slides and cell block slides is performed and supports the final diagnosis. ?? Bibi Crews DO LAB CYTOLOGY ORDERABLES Final Result documented in this encounter Visit Diagnoses Not on filedocumented in this encounter Additional Health Concerns Infection Onset Date Last Indicated Resolved Time 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 Care Teams Removable Prosthodontist Relationship Specialty Start Date End Date Jayne Bowen MD [address] [place] [id number] PCP - General 08/14/19 01/06/20 documented as of this encounter
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
--- OUTSIDE RECORDS SUMMARY | 2024-06-27 04:55 | XMS_ITS | Encounter Summary ---
Author Organization [facility] Facility Care Team Providers Care Production Line Mechanic Name Role Phone Bianca Chand MD Primary Care Provider Encounter Details Date Type Department Care Team (Latest Contact Info) Description 05/22/2019 Travel Social History Tobacco Use Types Packs/Day Years Used Date Smoking Tobacco: Former Cigarettes 1 40 Smokeless Tobacco: Former Alcohol Use Standard Drinks/Week Comments Yes 12 (1 standard drink = 0.6 oz pure alcohol) last drink beer before this dr appt Sex and Gender Information Value Date Recorded [...] as of this encounter Care Teams Production Line Mechanic Relationship Specialty Start Date End Date Bianca Chand MD [address] [address] PCP - General Internal Medicine 03/02/19 06/02/19 documented as of this encounter
--- OUTSIDE RECORDS SUMMARY | 2024-06-27 04:55 | XMS_ITS | Encounter Summary ---
Author Organization [facility] Healthcare Address [address] [place] [address] Care Team Providers Care Merchandiser Retail Representative Name Role Phone Bianca Chand MD Primary Care Provider Reason for Visit * Reason Comments Drug Problem alcohol when wakes, marajuana, cocaine, states would like help with detox Encounter Details Date Type Department Care Team (Late st Contact Info) Description 06/24/2019 1:15 PM GAS COMPRESSOR TURBINE OPERATOR Office Visit [facility] [address] [facility] [address] [place], [place] [id number] Leslie Reed MD [address] [place] [address] [phone] [place] [address] Bianca Chand MD [address] [place] [address] [address] [place], [place] [id number] Alcohol dependence with withdrawal delirium (CMS/HCC) (Primary Dx) Social History Tobacco Use [...] Sign Reading Time Taken Comments Blood Pressure 126/76 06/24/2019 1:46 PM GAS COMPRESSOR TURBINE OPERATOR Pulse 102 06/24/2019 1:46 PM GAS COMPRESSOR TURBINE OPERATOR Temperature 36.8 ??C (98.3 ??F) 06/24/2019 1:46 PM CS T Respiratory Rate 14 06/24/2019 1:46 PM GAS COMPRESSOR TURBINE OPERATOR Oxygen Saturation 97% 06/24/2019 1:46 PM GAS COMPRESSOR TURBINE OPERATOR Inhaled Oxygen Concentration - - Weight 87.5 kg (193 lb) 06/24/2019 1:46 PM GAS COMPRESSOR TURBINE OPERATOR Height - - Body Mass Index 29.35 06/03/2019 2:25 AM GAS COMPRESSOR TURBINE OPERATOR documented in this encounter Progress Notes * Bianca Chand MD - 06/24/2019 1:15 PM CST Patient Name: Chester Dubose Jr. : 1970 Today's Date: 06/24/2019 PCP: Bianca Chand MD Chief Complaint Chief Complaint Patient presents with ??? Drug Problem alcohol when wakes, marajuana, cocaine, states would like help with detox HPI Chester Dubose Jr. is a 49 y.o. male w/ PMH of Cirrhosis, Hep C infection s/p treatment, s/p ORIFfor distal radius fracture 09/2018, ETOH abuse c/b DT w/o seizure, previous suicide attempt w/ history of anxiety presenting for PHV. Seen last in clinic on 04/02 for routine follow up. Saw psych the following day with recs to start mirtazapine 7.5. Was scheduled for PFT but then cancelled and NSH. Then was seen in the ED on 05/22 for HI/SI in setting of PSA that resolved without intervention, he was released that day. Of note EGDpreviously ordered and Hepatology referral were both never scheduled. Patient arrived acutely intoxicated with last drink approx 15 min ago. Wanting to go to detox center. Rehab facility was called and said he was set up for admission but do not do acute detox. Patient is currently drinking approx fifth of liquour + 6-8 beers daily with some PSA (meth, cocaine, MJ) intermittently. Prior shakes/DT when quit. Wanting to detox and then go to rehab facility. Review of Systems 10 pt ROS reviewed [...] ??? gabapentin (NEURONTIN) 100 mg capsule ??? naproxen (ALEVE) 220 mg tablet ??? nicotine (NICODERM CQ) 7 mg ??? pantoprazole DR (PROTONIX) 40 mg EC tablet ??? risperiDONE (RisperDAL) 1 mg tablet ??? sertraline (ZOLOFT) 50 mg tablet ??? thiamine (VITAMIN B-1) 50 mg tablet Social History Socioeconomic History ??? Marital status: Single Spouse name: None ??? Number of children: None ??? Years of education: None ??? Highest education level: None Occupational History ??? None Social Needs ??? Financial resource strain: None ??? Food insecurity: Worry: None Inability: None ??? Transportation needs: Medical: None Non-medical: None Tobacco Use ??? Smoking status: Current Every Day Smoker Packs/day: 1.00 Years: 40.00 Pack years: 40.00 Types: Cigarettes ??? Smokeless tobacco: Former User Substance and Sexual Activity ??? Alcohol use: Yes Alcohol/week: 12.0 standard drinks Types: 12 Cans of beer per week Comment: drink when wakes up ??? Drug use: Yes Types: Marijuana, Cocaine Comment: marijuana daily, cocaine 6-8 months ago ??? Sexual activity: Defer Lifestyle ??? Physical activity: Days per week: None Minutes per session: None ??? Stress: None Relationships ??? Social connections: Talks on phone: None Gets together: None Attends lutheran service: None Active member of club or organization: None Attends meetings of clubs or organizations: None Relationship status: None ??? Intimate partner violence: Fear of current or ex partner: None Emotionally abused: None Physically abused: None Forced sexual activity: None Other Topics Concern ??? None Social History Narrative B/R in [place], [place] but family moved frequently throughout his [...] past, but is currently working (on disability). Family History Problem Relation Age of Onset ??? Diabetes Other ??? Hypertension Other ??? Alcohol abuse Other EtOH problems widespread in the family ??? Other (Pt states father had 7 personalities and went plum ass crazy a few years ago) Father ??? Suicide Completion Mother's Brother ??? Depression Mother's Brother ??? Other ( Crazy per patient) Father's Brother ??? Cancer Neg Hx Vitals Vitals: 06/24/19 1346 BP: 126/76 BP Location: Right arm Patient Position: Sitting Pulse: 102 Resp: 14 Temp: 36.8 ??C (98.3 ??F) TempSrc: Oral SpO2: 97% Weight: 87.5 kg (193 lb) Body mass index is 26.18 kg/m??. Physical Exam General: Male acutely intoxicated HENT: NC/AT, trachea midline Eyes: EOMI, anicteric sclera CV: RRR, nl S1+S2, systolic murmur, no g/r Pulm: CTAB, no w/c/r, no use of accessory muscles GI:soft, NTND, + BS, no masses or HSM palpated Extremities: WWP, no KEN MSK: no joint swelling, grossly normal ROM Skin: no obvious rashes, bruises or cyanosis Neuro: AAOx2 (not to place, did know [facility]), no dysmetria on FNF, mild tremor b/l, CN II-XII grossly intact, moves all extremities spontaneously Psych: appropriate speech and affect Assessment / Plan Chester Dubose Jr. is a 49 y.o. male w/ PMH of Cirrhosis, Hep C infection s/p treatment, s/p ORIFfor distal radius fracture 09/2018, ETOH abuse c/b DT w/o seizure, previous suicide attempt w/ history of anxiety presenting for PHV. #ETOH intoxication Patient presents acutely intoxicated wanting to go to rehab (last drink approx 2pm today). [facility] ([phone]) but cannot do acute medical detox which patient will likely need with large alcohol consumption history and past history of DT. -send to ER for admission for medical detox from ETOH -on discharge send patient [facility] ([phone]) Return when discharge from hospital and rehab. Bianca Chand MD Internal Medicine PGY-3 Please assist in scheduling my patient for the following weeks when I am scheduled in clinic: 06/16/2019 to 06/29/2019 08/11/2019 to 07/26/2019 10/06/2019 to 10/19/2019 Cosigned by Aminata Carrion MD at 06/25/2019 12:54 PM GAS COMPRESSOR TURBINE OPERATOR COMPRESSOR TURBINE OPERATOR COMPRESSOR TURBINE OPERATOR COMPRESSOR TURBINE OPERATOR Associated attestation - Aminata Carrion MD - 06/25/2019 12:54 PM GAS COMPRESSOR TURBINE OPERATOR I have seen and examined the patient. I agree with the findings and plan of care as documented in the resident/fellow's note. 49 yo male with alcoholism who presents to clinic for evaluation. Last drink 15 minutes ago, patient appears intoxicated. Only oriented to self, year, and in [facility]. He has a history of Dts and shakes when not drinking. Called outpatient program, but unable to currently accept patient. Patient states that he wants help to quit drinking. Will send to ED for further evaluation * Santy Mariano RN - 06/24/2019 1:15 PM CST Pt stated he drank alcohol this morning and smoked mariajuana. Patient requests medical detox. States he has an inpatient rehab set up after detox. Patient remained calm and understanding during appointment. Patient did admit he was thinking of buying a gun tonight but went to his MD appointment because that's a better decision. Patient was transported to the ED via [facility]. Patient indicates understanding of discharge plan of care, instructions given by MD. COMPRESSOR TURBINE OPERATOR documented in this encounter Miscellaneous Notes * Assessment & Plan Note - Bianca Chand MD - 06/24/2019 3:11 PM GAS COMPRESSOR TURBINE OPERATOR Associated Problem(s): 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) Patient presents acutely intoxicated wanting to go to rehab. [facility]([phone]) but cannot do acute medical detox which patient will likely need with large alcohol consumption history and past history of DT. 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
--- OUTSIDE RECORDS SUMMARY | 2024-06-27 04:55 | XMS_ITS | Encounter Summary ---
Author Organization [facility] Healthcare Address [address] [place] [address] Care Team Providers Care Kettle Operator Head Name Role Phone Bianca Chand MD Primary Care Provider Reason for Referral * Diagnostic Imaging (Routine) - Closed Specialty Diagnoses / Procedures Referred By Kileyac t Referred To Contact Diagnoses Primary osteoarthritis involving multiple joints Procedures XR Knee Right 3 Views Cristino Chauhan MD [address] [place] [id number] Phone: tel: fax: [address] [phone] Referral ID Status Reason Start Date Expiration Date Visits Re quested Visits Authorized [id number] Closed 04/02/2019 10/11/2020 1 1 * Diagnostic Imaging (Routine) - Closed Specialty Diagnoses / Procedures Referred By Hoang t Referred To Contact Diagnoses Primary osteoarthritis involving multiple joints Procedures XR Knee Left 3 Views Cristino Chauhan MD [address] [place] [address] Phone: tel: fax: [address] [phone] Referral ID Status Reason Start Date Expiration Date Visits Re quested Visits Authorized [id number] Closed 04/02/2019 10/11/2020 1 1 * Diagnostic Imaging (Routine) - Closed Specialty Diagnoses / Procedures Referred By Hoang leroy Referred To Contact Diagnoses Primary osteoarthritis involving multiple joints Procedures XR Shoulder Right 2 or More Views Cristino Chauhan MD [address] [place] [id number] Phone: tel: fax: [address] [phone] Referral ID Status Reason Start Date Expiration Date Visits Re quested Visits Authorized [id number] Closed 04/02/2019 10/11/2020 1 1 * Diagnostic Imaging (Routine) - Closed Specialty Diagnoses / Procedures Referred By Hoang leroy Referred To Contact Diagnoses Primary osteoarthritis involving multiple joints Procedures XR Shoulder Left 2 or More Views Cristino Chauhan MD [address] [place] [id number] Phone: tel: fax: [address] [phone] Referral ID Status Reason Start Date Expiration Date Visits Re quested Visits Authorized [id number] Closed 04/02/2019 10/11/2020 1 1 Reason for Visit * Reason Comments Follow-up hospital visit for h emoptysis Encounter Details Date Type Department Care Team (Latest Contact Info) Description 04/02/2019 8:45 AM CDT Office Visit [facility] Primary Care Medicine Clinic [facility] [address] [place] [address] Dev Hernandez MD [address] [facility] [email or web address]] [address] [place] [address] Cristino Chauhan MD [address] [place] [address] [address] [place] [address] Hepatitis C virus infection without hepatic coma, unspecified chronicity (Primary Dx); Primary osteoarthritis involving multiple joints; Chronic obstructive pulmonary disease, unspecified COPD type (CMS/HCC); Polysubstance abuse (CMS/HCC); Need for vaccination with Twinrix; Flu vaccine need Discharge Disposition: Discharge to home or self [...] Sign Reading Time Taken Comments Blood Pressure 128/77 04/02/2019 9:10 AM CDT Pulse 72 04/02/2019 9:10 AM CDT Temperature 36.8 ??C (98.3 ??F) 04/02/2019 9:10 AM CD T Respiratory Rate 18 04/02/2019 9:10 AM CDT Oxygen Saturation 98% 04/02/2019 9:10 AM CDT Inhaled Oxygen Concentration - - Weight - - Height - - Body Mass Index - - documented in this encounter Patient Instructions * Patient Instructions* Leonila Alonso RN - 04/02/2019 8:45 AM CDT Discharge instructions provided by with understanding verbalized. Discussed discharge instructions with the patient and all questioned fully answered. Patient will call if any problems or questions arise. documented in this encounter Ordered Prescriptions Prescription Sig Dispense Quantity Refills Last Filled Start Date End Date nicotine (NICODERM CQ) [address] 1 patch on the skin daily 28 patch 1 04/02/2019 05/27/2020 documented in this encounter Discharge Disposition Disposition Code Departure Means Destination Discharge to home or self care documented in this encounter Progress Notes * Cristino Chauhan MD - 04/02/2019 8:45 AM CDT Patient Name: Chester Dubose : 1970 Today's Date: 04/02/2019 PCP: Bianca Chand MD Chief Complaint Routine follow-up HPI Chester Dubose is a 48 y.o. male w/ PMH of cirrhosis, Hep C infection s/p treatment, s/p ORIF fordistal radius fracture 09/2018, ETOH abuse c/b DT w/o seizure, previous suicide attempt w/ unclear psych diagnosis presenting for routine follow-up. He was last seen in clinic on 03/03/19 for PHV (please refer to note from that visit for more details. Briefly, patient was admitted from 02/21 to 02/25 for hematemesis and melena. EGD at that time showed EVs s/p banding. At his last clinic visit, he was referred to Hepatology and HCV RNA was checked (undetectable). Given his unclear psych history, he was also referred for a psych appointment, which has been approved and per the patient is scheduled for tomorrow. He denies any recent SI, mood has been stable. Since his last visit, he was endorsing presyncopal episodes with his nadolol. The dose was halved, but he was still having symptoms, and so stopped taking it. He denied any falls or LOC, and has not had any recurrent symptoms since stopping the nadolol. Today, he has no acute complaints. He denies any F/C or recent illnesses, no abdominal pain or N/V/D, no recurrent hematemesis or melena. He does endorse chronic pain in the knees, ankles, and shoulders. He denies X-rays of those joints or seeing an Orthopedic Surgeon for these issues. He notes that he had quit drinking for a short period, but has started back up in the setting of anxiety. His last drink was yesterday (4 beers). He also continues to smoke, although he notes that the nicotine patch has cut his cravings. He mostly smokes in the setting of alcohol consumption or when he is out with friends. He continues to smoke MJ several times per month. He denies any recent cocaine use or IVDU (remote history of both). Review of Systems 10 pt ROS reviewed [...] folic acid (FOLVITE) 1 mg tablet ??? nicotine (NICODERM CQ) 7 [...] resource strain: Not on file ??? Food insecurity: Worry: Not on file Inability: Not on file ??? Transportation needs: Medical: Not on file Non-medical: Not on [...] Lifestyle ??? Physical activity: Days per week: Not on file Minutes per session: Not on file ??? Stress: Not on file Relationships ??? Social connections: Talks on phone: Not on file Gets together: Not on file Attends yarsanism service: Not on file Active member of club or organization: Not on file Attends meetings of clubs or organizations: Not on file Relationship status: Not on file ??? Intimate partner violence: Fear of current or ex partner: Not on file Emotionally abused: Not on file Physically abused: Not on file Forced sexual activity: Not on file Other Topics Concern ??? Not on file Social History Narrative ??? Not on file Family History Problem Relation Age of Onset ??? Diabetes Other ??? Hypertension Other ??? Cancer Neg Hx Vitals Vitals: 04/02/19 0910 BP: 128/77 BP Location: Right arm Patient Position: Sitting Pulse: 72 Resp: 18 Temp: 36.8 ??C (98.3 ??F) TempSrc: Oral SpO2: 98% There is no height or weight on file to calculate BMI. Physical Exam General: M sitting up in NAD, cooperative HENT: NC/AT, trachea midline, MMM, OP clear, poor dentition Eyes: EOMI, PEERL, anicteric sclera CV: RRR, nl S1+S2, no m/g/r Pulm: CTAB, no w/c/r, no use of accessory muscles GI: Soft, NT, slightly distended, +BS, no masses palpated Extremities: WWP, no cyanosis or clubbing, no KEN MSK: No joint swelling, grossly normal ROM, crepitus noted Skin: No obvious rashes, bruises, or cyanosis on exposed skin Neuro: A&O x 4, grossly non-focal Psych: Flat affect, euthymic mood, fluent speech Assessment / Plan Chester Dubose is a 48 y.o. male w/ PMH of cirrhosis, Hep C infection s/p treatment, s/p ORIF fordistal radius fracture 09/2018, ETOH abuse c/b DT w/o seizure, previous suicide attempt w/ unclear psych diagnosis presenting for routine follow-up. #Cirrhosis c/b EV and pHTN: Likely etiology some combination of ETOH and HCV. US Liver in hospital w/o lesions but pHTN and ascites. S/p EGD in 02/2019 with EVs s/p banding x 2. - Continue Protonix 40 mg BID - Continue thiamine and folate supplementation - Patient unable to tolerate nadolol -> now discontinued - Referred to Hepatology at last visit, patient to follow-up - Will call to see when repeat EGD will be performed - US Liver due next 08/2019 - Hep A/B vaccination as below - Continued to encourage complete EtOH cessation #Hepatitis C: History of HCV but reports was previously treated several years ago. HCV Ab checked in hospital butnot RNA. HCV RNA undetectable in 02/2019. - Continue to monitor, follow-up with Hepatology #OA: Has history of previous trauma and chronic pain involving bilateral knees, ankles, and shoulders. Exam grossly unremarkable today aside from crepitus. - Ordered X-rays of bilateral shoulders and knees - Referred to Ortho today #Anxiety: Patient reports ongoing anxiety likely due to his cessation of PSA and underlying psych diagnosis. Unclear diagnosis in the past but has been on Seroquel, aripiprazole, and Lamictal in the past and endorses AH and VH. Denies SI/HI today, mood stable. Previously followed with psychiatrist in [facility] but does not remember the name. - Patient scheduled for one-time psych visit tomorrow - Will require connection with another psychiatrist after that (i.e. [place] or [facility]), SW tasked to assist #COPD: Patient reports lung disease and long standing smoker. Currently on disability for this. Likely COPD but no PFT in system and not on any inhalers. - Ordered PFTs today - Continued to encourage smoking cessation as below #PSA: Patient reports prior EtOH, tobacco, cocaine, marijuana and remote IVDU. Patient has been making recent large efforts to quit. Has not used EtOH or tobacco since discharge. - Encouraged cessation and congratulated efforts - Refill of nicotine patches sent, decreased to 7 mg today #Healthcare Maintenance: General - A1c (for pts c BP >135/80): 5.1% on 09/2017 - Lipids (men >35, women >45 at high risk): TC 116, HDL 74, LDL 72 (02/2019) - DEXA (women >65 or high risk): N/A - AAA (men 65-75 w/ smoking hx): N/A Cancer - Colonoscopy (age 50-75): At 50 - PSA: N/A - LDCT (55-80 c >30 pk-yr hx, and smoking in past 15yrs): At 55 Infectious Disease - HIV (age 15-65): Negative 07/2013 - HBV (if at high risk): Negative (receiving vaccine below) - HCV ( [id number]): + but reports s/p treatment (HCV RNA neg 02/2019) - Gonorrhea/Chlamydia (women <24 or increased risk): N/A - Syphilis (if increased risk): N/A Immunizations - Influenza (annually): Administered today - Td/Tdap (q10 years): 09/2018 - PPSV23 (age >65, immunocomp, DM, CKD, heart dz, lung dz, liver dz, EtOH, asplenia): Next visit - PCV13 (age >65, immunocomp, CKD, asplenia): At 65 - Shingles (age >60): At 60 - HAV (MSM or chronic liver disease): Doses 03/03 and 04/02 -> repeat due circa 08/2019 - HBV (DM, HIV, MSM, liver dz, CKD, healthcare workers): Doses 03/03 and 04/02 -> repeat due circa 08/2019 Return in about 3 months (around 07/03/2019). Cristino Chauhan MD Internal Medicine PGY-3 04/02/19 Attending Addendum, Staffed by Hetaher Cormier MD 04/02/2019: Here for f/u Has appt with psych resident tomorrow. No si/hi today Was referred for egd as f/u from prior egd, not scheduled yet, will need to get this scheduled, today dr. chauhan will call the gi lab about scheduling it Was referred to liver, no appt yet, but has been authorized. Has had treatment in the past for it He stopped nadalol 2/2 presyncope on even half the dose he was sent home on, after stopping it, no further episodes Dr. Chand had referred him for pfts for unspecified lung disease, not currently complaining of wheezing, lungs clear, will check on referral Flu shot today Cosigned by Heather Cormier MD at 04/02/2019 11:18 AM CDT Associated attestation - Heather Cormier MD - 04/02/2019 11:18 AM CDT I have personally reviewed with Dr. chauhan the history, physical examination, laboratory studies and proposed management for Chester Dubose. Together we formulated a clinical diagnosis for each problem and developed a plan for therapy during or immediately after his clinic visit. I agree with the rec ommended plan of care. Additional Notes: documented in this encounter Plan of Treatment Not on file documented as of this encounter Results * XR Knee Right 3 Views (04/02/2019 10:49 AM CDT) Anatomical Region Laterality Modality Lower Extremities, Knee Right Computed Radiography 04/02/2019 10:5 0 AM CDT Impressions 04/02/2019 10:50 AM CDT 1. ??Normal bilateral shoulder evaluation. 2. ??Normal bilateral knee evaluation. Electronically signed by: Kenyon Jimenez M.D. Narrative 04/02/2019 10:50 AM CDT EXAMINATION: 1. ??Right knee 3 views 2. ??Left knee 3 views 3. ??Left shoulder 2+ views 4. ??Right shoulder 2+ views HISTORY: ??Bilateral shoulder and knee pain FINDINGS: 3 views each shoulder and 4 views each knee submitted without comparison. Right shoulder: There are no fractures. ??Alignment is normal. ??The joint spaces are normal. Left shoulder: There are no fractures. ??Alignment is normal. ??The joint spaces are normal. Knees: There are no fractures. ??Alignment is normal. ??The joint spaces are normal. ??There are no knee effusions. Procedure Note Kenyon Jimenez MD - 04/02/2019 EXAMINATION: 1. Right knee 3 views 2. Left knee 3 views 3. Left shoulder 2+ views 4. Right shoulder 2+ views HISTORY: Bilateral shoulder and knee pain FINDINGS: 3 views each shoulder and 4 views each knee submitted without comparison. Right shoulder: There are no fractures. Alignment is normal. The joint spaces are normal. Left shoulder: There are no fractures. Alignment is normal. The joint spaces are normal. Knees: There are no fractures. Alignment is normal. The joint spaces are normal. There are no knee effusions. IMPRESSION: 1. Normal bilateral shoulder evaluation. 2. Normal bilateral knee evaluation. Electronically signed by: Kenyon Jimenez M.D. Cristino Chauhan MD IMG XR PROCEDURES Final Result * XR Knee Left 3 Views (04/02/2019 10:49 AM CDT) Anatomical Region Laterality Modality Lower Extremities, Knee Left Computed Radiography 04/02/2019 10:5 0 AM CDT Impressions 04/02/2019 10:50 AM CDT 1. ??Normal bilateral shoulder evaluation. 2. ??Normal bilateral knee evaluation. Electronically signed by: Kenyon Jimenez M.D. Narrative 04/02/2019 10:50 AM CDT EXAMINATION: 1. ??Right knee 3 views 2. ??Left knee 3 views 3. ??Left shoulder 2+ views 4. ??Right shoulder 2+ views HISTORY: ??Bilateral shoulder and knee pain FINDINGS: 3 views each shoulder and 4 views each knee submitted without comparison. Right shoulder: There are no fractures. ??Alignment is normal. ??The joint spaces are normal. Left shoulder: There are no fractures. ??Alignment is normal. ??The joint spaces are normal. Knees: There are no fractures. ??Alignment is normal. ??The joint spaces are normal. ??There are no knee effusions. Procedure Note Kenyon Jimenez MD - 04/02/2019 EXAMINATION: 1. Right knee 3 views 2. Left knee 3 views 3. Left shoulder 2+ views 4. Right shoulder 2+ views HISTORY: Bilateral shoulder and knee pain FINDINGS: 3 views each shoulder and 4 views each knee submitted without comparison. Right shoulder: There are no fractures. Alignment is normal. The joint spaces are normal. Left shoulder: There are no fractures. Alignment is normal. The joint spaces are normal. Knees: There are no fractures. Alignment is normal. The joint spaces are normal. There are no knee effusions. IMPRESSION: 1. Normal bilateral shoulder evaluation. 2. Normal bilateral knee evaluation. Electronically signed by: Kenyon Jimenez M.D. Cristino Chauhan MD IM XR PROCEDURES Final Result * XR Shoulder Right 2 or More Views (04/02/2019 10:49 AM CDT) Anatomical Region Laterality Modality Upper Extremities, Shoulder Right Comp uted Radiography 04/02/2019 10:5 0 AM CDT Impressions 04/02/2019 10:50 AM CDT 1. ??Normal bilateral shoulder evaluation. 2. ??Normal bilateral knee evaluation. Electronically signed by: Kenyon Jimenez M.D. Narrative 04/02/2019 10:50 AM CDT EXAMINATION: 1. ??Right knee 3 views 2. ??Left knee 3 views 3. ??Left shoulder 2+ views 4. ??Right shoulder 2+ views HISTORY: ??Bilateral shoulder and knee pain FINDINGS: 3 views each shoulder and 4 views each knee submitted without comparison. Right shoulder: There are no fractures. ??Alignment is normal. ??The joint spaces are normal. Left shoulder: There are no fractures. ??Alignment is normal. ??The joint spaces are normal. Knees: There are no fractures. ??Alignment is normal. ??The joint spaces are normal. ??There are no knee effusions. Procedure Note Kenyon Jimenez MD - 04/02/2019 EXAMINATION: 1. Right knee 3 views 2. Left knee 3 views 3. Left shoulder 2+ views 4. Right shoulder 2+ views HISTORY: Bilateral shoulder and knee pain FINDINGS: 3 views each shoulder and 4 views each knee submitted without comparison. Right shoulder: There are no fractures. Alignment is normal. The joint spaces are normal. Left shoulder: There are no fractures. Alignment is normal. The joint spaces are normal. Knees: There are no fractures. Alignment is normal. The joint spaces are normal. There are no knee effusions. IMPRESSION: 1. Normal bilateral shoulder evaluation. 2. Normal bilateral knee evaluation. Electronically signed by: Kenyon Jimenez M.D. Cristino Chauhan MD IMG XR PROCEDURES Final Result * XR Shoulder Left 2 or More Views (04/02/2019 10:49 AM CDT) Anatomical Region Laterality Modality Upper Extremities, Shoulder Left Comp uted Radiography 04/02/2019 10:5 0 AM CDT Impressions 04/02/2019 10:50 AM CDT 1. ??Normal bilateral shoulder evaluation. 2. ??Normal bilateral knee evaluation. Electronically signed by: Kenyon Jimenez M.D. Narrative 04/02/2019 10:50 AM CDT EXAMINATION: 1. ??Right knee 3 views 2. ??Left knee 3 views 3. ??Left shoulder 2+ views 4. ??Right shoulder 2+ views HISTORY: ??Bilateral shoulder and knee pain FINDINGS: 3 views each shoulder and 4 views each knee submitted without comparison. Right shoulder: There are no fractures. ??Alignment is normal. ??The joint spaces are normal. Left shoulder: There are no fractures. ??Alignment is normal. ??The joint spaces are normal. Knees: There are no fractures. ??Alignment is normal. ??The joint spaces are normal. ??There are no knee effusions. Procedure Note Kenyon Jimenez MD - 04/02/2019 EXAMINATION: 1. Right knee 3 views 2. Left knee 3 views 3. Left shoulder 2+ views 4. Right shoulder 2+ views HISTORY: Bilateral shoulder and knee pain FINDINGS: 3 views each shoulder and 4 views each knee submitted without comparison. Right shoulder: There are no fractures. Alignment is normal. The joint spaces are normal. Left shoulder: There are no fractures. Alignment is normal. The joint spaces are normal. Knees: There are no fractures. Alignment is normal. The joint spaces are normal. There are no knee effusions. IMPRESSION: 1. Normal bilateral shoulder evaluation. 2. Normal bilateral knee evaluation. Electronically signed by: Kenyon Jimenez M.D. Cristino Chauhan MD IMG XR PROCEDURES Final Result documented in this encounter Visit Diagnoses Diagnosis Hepatitis C virus infection without hepatic coma, unspecified chronicity- Primary Primary osteoarthritis involving multiple joints Chronic obstructive pulmonary disease, unspecified COPD type (HCC) Polysubstance abuse (CMS/HCC) (HCC) Other, mixed, or unspecified nondependent drug abuse, unspecified Need for vaccination with Twinrix Flu vaccine need Primary osteoarthritis involving multiple joints documented in this encounter Discontinued Medications Medication Sig Discontinue Reason Start Date End Da te nadolol (CORGARD) 20 mg tabletIndications:Alcoho lic cirrhosis of liver with ascites (CMS/HCC) (HCC) Take 1 tablet (20 mg total) by mouth daily 03/03/2019 04/02/2019 nicotine (NICODERM CQ) [address] 1 patch on the skin daily 03/03/2019 04/02/2019 documented as of this encounter Additional Health Concerns Infection Onset Date Last Indicated Resolved Time 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
--- OUTSIDE RECORDS SUMMARY | 2024-06-27 04:55 | XMS_ITS | Encounter Summary ---
Author Organization [facility] Healthcare Address [address] [place] [address] Care Team Providers Care Wastewater Project Manager Name Role Phone Jayne Bowen MD Primary Care Provider + Encounter Details Date Type Department Care Team (Late st Contact Info) Description 12/10/2019 1:45 AM CDT - 12/25/2019 7:00 PM CDT Hospital Encounter [facility] ADMIT Unknown, Meir Sweet MD [facility] [place] [address] Discharge Disposition: Discharge to snf facility Social History Tobacco Use Types Packs/Day Years [...] Sign Reading Time Taken Comments Blood Pressure 112/60 12/20/2019 2:56 PM CDT Pulse 92 12/20/2019 2:56 PM CDT Temperature 37.1 ??C (98.7 ??F) 12/20/2019 2:56 PM CD T Respiratory Rate - - Oxygen Saturation 96% 12/20/2019 2:56 PM CDT Inhaled Oxygen Concentration - - Weight 81.6 kg (180 lb) 12/20/2019 2:56 PM CDT Height 182.9 cm (6') 12/20/2019 2:56 PM CDT Body Mass Index 24.41 12/20/2019 2:56 PM CDT documented in this encounter Medications [...] for withdrawal symptoms 5 capsule 06/25/2019 0 folic acid (FOLVITE) 1 mg tabletIndication s:Alcoholic cirrhosis of liver with ascites (CMS/HCC) (HCC) Take 1 tablet (1 mg total) by mouth daily 30 tablet 3 03/03/2019 1 gabapentin (NEURONTIN) 100 mg capsule Take by mouth 3 (three) times a day 0 magnesium oxide (MAG-OX) 400 mg (241.3 [...] Disposition Code Departure Means Destination Discharge to snf facility documented in this encounter Plan of Treatment Not on file documented as of this encounter Procedures Procedure Name Priority Date/Time Associated Diagnosis Comments SCAN - LABS 12/26/2019 12:00 AM CDT CBC WITH AUTO DIFFERENTIAL Routine 12/24/2019 7:39 AM CDT COMPREHENSIVE METABOLIC PANEL Routine 12/24/2019 7:39 AM CDT CBC WITH AUTO DIFFERENTIAL Routine 12/23/2019 6:08 AM CDT PHOSPHORUS Routine 12/23/2019 6:08 AM CDT MAGNESIUM Routine 12/23/2019 6:08 AM CDT COMPREHENSIVE METABOLIC PANEL Routine 12/23/2019 6:08 AM CDT US GUIDED PARACENTESIS 0 12:00 AM CDT CBC WITH AUTO DIFFERENTIAL Routine 12/22/2019 6:24 AM CDT PHOSPHORUS Routine 12/22/2019 6:24 AM CDT MAGNESIUM Routine 12/22/2019 6:24 AM CDT COMPREHENSIVE METABOLIC PANEL Routine 12/22/2019 6:24 AM CDT XR CHEST 1 VIEW 12/22/2019 12:00 AM CDT CBC WITH AUTO DIFFERENTIAL Routine 12/21/2019 6:41 AM CDT ERYTHROCYTE SEDIMENTATION RATE Routine 12/21/2019 6:41 AM CDT CRP (ACUTE PHASE) Routine 12/21/2019 6:4 1 AM CDT PHOSPHORUS Routine 12/21/2019 6:41 AM CDT B-TYPE NATRIURETIC PEPTIDE Routine 12/21/2019 6:41 AM CDT MAGNESIUM Routine 12/21/2019 6:41 AM CDT COMPREHENSIVE METABOLIC PANEL Routine 12/21/2019 6:41 AM CDT STREP PNEUMONIAE AG, URINE Routine 12/20/2019 6:30 PM CDT C.DIFFICILE TOXIN ASSAY Routine 12/20/2019 1:46 PM CDT STOOL CULTURE Routine 12/20/2019 1:46 PM CDT PROCALCITONIN POST-ABT 72 HOUR Routine 12/20/2019 5:13 AM CDT ERYTHROCYTE SEDIMENTATION RATE Routine 12/20/2019 5:13 AM CDT CRP (ACUTE PHASE) Routine 12/20/2019 5:1 3 AM CDT B-TYPE NATRIURETIC PEPTIDE Routine 12/20/2019 5:13 AM CDT SCAN - LABS 12/20/2019 12:00 AM CDT COVID-19 CORONAVIRUS RNA Routine 12/19/2019 12:55 PM CDT INFECTION PREVENTION MRSA ONLY (STAPHYLOCOCCUS AUREUS) PCR Routine 12/19/2019 12:[address] ABDOMEN PELVIS W CONTRAST 12/19/2019 12:16 PM CDT FERRITIN Routine 12/19/2019 10:32 AM CDT ABO/RH Routine 12/19/2019 8:19 AM CDT PROCALCITONIN POST-ANTIBIOTIC Routine 12/19/2019 5:00 AM CDT CBC WITH AUTO DIFFERENTIAL Routine 12/19/2019 5:00 AM CDT APTT Routine 12/19/2019 5:00 AM CDT PROTIME-INR Routine 12/19/2019 5:00 AM CDT MAGNESIUM Routine 12/19/2019 5:00 AM CDT COMPREHENSIVE METABOLIC PANEL Routine 12/19/2019 5:00 AM CDT US ABDOMEN LIMITED 12/19/2019 12 :00 AM CDT LACTATE Routine 12/18/2019 2:28 PM CDT BLOOD CULTURE Routine 12/18/2019 10:20 AM CDT LACTATE Routine 12/18/2019 10:10 AM CDT BLOOD CULTURE Routine 12/18/2019 10:10 AM CDT APTT Routine 12/18/2019 10:10 AM CDT PROTIME-INR Routine 12/18/2019 10:10 AM CDT URINALYSIS, COMPLETE W/REFLEX TO CULTURE Routine 12/18/2019 10:00 AM CDT URINE CULTURE Routine 12/18/2019 10:00 AM CDT CBC WITH AUTO DIFFERENTIAL Routine 12/18/2019 5:38 AM CDT MAGNESIUM Routine 12/18/2019 5:38 AM CDT COMPREHENSIVE METABOLIC PANEL Routine 12/18/2019 5:38 AM CDT XR CHEST 1 VIEW 12/18/2019 12:00 AM CDT CBC WITH AUTO DIFFERENTIAL Routine 12/17/2019 5:23 AM CDT MAGNESIUM Routine 12/17/2019 5:23 AM CDT COMPREHENSIVE METABOLIC PANEL Routine 12/17/2019 5:23 AM CDT CBC WITH AUTO DIFFERENTIAL Routine 12/16/2019 6:22 AM CDT PROTIME-INR Routine 12/16/2019 6:22 AM CDT MAGNESIUM Routine 12/16/2019 6:22 AM CDT HEMOGLOBIN A1C Routine 12/16/2019 6:22 AM CDT COMPREHENSIVE METABOLIC PANEL Routine 12/16/2019 6:22 AM CDT CBC WITH AUTO DIFFERENTIAL Routine 12/15/2019 4:55 AM CDT BILIRUBIN, DIRECT Routine 12/15/2019 4:5 5 AM CDT COMPREHENSIVE METABOLIC PANEL Routine 12/15/2019 4:55 AM CDT CBC WITH AUTO DIFFERENTIAL Routine 12/14/2019 6:45 AM CDT BILIRUBIN, DIRECT Routine 12/14/2019 6:4 5 AM CDT AMMONIA Routine 12/14/2019 6:45 AM CDT COMPREHENSIVE METABOLIC PANEL Routine 12/14/2019 6:45 AM CDT CBC WITH AUTO DIFFERENTIAL Routine 12/13/2019 5:51 AM CDT PROTIME-INR Routine 12/13/2019 5:51 AM CDT MAGNESIUM Routine 12/13/2019 5:51 AM CDT BILIRUBIN, DIRECT Routine 12/13/2019 5:5 1 AM CDT AMMONIA Routine 12/13/2019 5:51 AM CDT COMPREHENSIVE METABOLIC PANEL Routine 12/13/2019 5:51 AM CDT AMMONIA Routine 12/12/2019 7:01 AM CDT VITAMIN B12 AND FOLATE Routine 0 5:29 AM CDT TSH+FREE T4 Routine 12/12/2019 5:29 AM CDT IRON PROFILE W/ IBC Routine 12/12/2019 5 :29 AM CDT VITAMIN D 25 HYDROXY Routine 12/12/2019 5:29 AM CDT PHOSPHORUS Routine 12/12/2019 5:29 AM CDT MAGNESIUM Routine 12/12/2019 5:29 AM CDT LIPASE Routine 12/12/2019 5:29 AM CDT BASIC METABOLIC PANEL Routine 12/12/2019 5:29 AM CDT AMMONIA Routine 12/11/2019 11:24 AM CDT CBC WITH AUTO DIFFERENTIAL Routine 12/11/2019 5:34 AM CDT PHOSPHORUS Routine 12/11/2019 5:34 AM CDT MAGNESIUM Routine 12/11/2019 5:34 AM CDT COMPREHENSIVE METABOLIC PANEL Routine 12/11/2019 5:34 AM CDT CELL COUNT W/REFLEX DIFFERENTIAL, BODY FLUID Routine 12/10/2019 1:10 PM CDT BODY FLUID CULTURE Routine 12/10/2019 1: 10 PM CDT CYTOLOGY Routine 12/10/2019 1:10 PM CDT GRAM STAIN Routine 12/10/2019 1:10 PM CDT ANAEROBIC CULTURE Routine 12/10/2019 1:1 0 PM CDT HEPATITIS C RNA, QUANTITATIVE, NAAT Routine 12/10/2019 10:59 AM CDT ECG 12-LEAD 12/10/2019 8:58 AM CDT CBC WITH AUTO DIFFERENTIAL Routine 12/10/2019 7:56 AM CDT HEPATITIS PANEL, ACUTE Routine 0 5:41 AM CDT PHOSPHORUS Routine 12/10/2019 5:41 AM CDT MAGNESIUM Routine 12/10/2019 5:41 AM CDT COMPREHENSIVE METABOLIC PANEL Routine 12/10/2019 5:41 AM CDT URINALYSIS, COMPLETE W/REFLEX TO CULTURE Routine 12/10/2019 1:50 AM CDT DRUGS OF ABUSE SCREEN, URINE WITHOUT CONFIRMATION Routine 12/10/2019 1:50 AM CDT APTT Routine 12/10/2019 1:26 AM CDT PROTIME-INR Routine 12/10/2019 1:26 AM CDT US GUIDED PARACENTESIS 0 12:00 AM CDT SEPSIS LACTATE Routine 12/09/2019 10:43 PM CDT TNI WITH LIPID PANEL Routine 12/09/2019 8:39 PM CDT PROCALCITONIN Routine 12/09/2019 8:39 PM CDT CBC WITH AUTO DIFFERENTIAL Routine 12/09/2019 8:39 PM CDT LIPASE Routine 12/09/2019 8:39 PM CDT ETHANOL Routine 12/09/2019 8:39 PM CDT COMPREHENSIVE METABOLIC PANEL Routine 12/09/2019 8:[address] ABDOMEN PELVIS W CONTRAST 12/09/2019 12:00 AM CDT documented in this encounter Results * SCAN - LABS (12/26/2019 12:00 AM CDT) Narrative 12/26/2019 12:00 AM CDT Ordered by an unspecified provider. us Historical Provider Final Res ult * (ABNORMAL) Comprehensive metabolic panel (12/24/2019 7:39 AM CDT) Sodium 134(L) 135 - 145 mmol/L [facility] Potassium 3.9 3.3 - 5.1 mmol/L [facility] Chloride 105 96 - 108 mmol/L [facility] Carbon Dioxide 22 22 - 32 mmol/L [facility] Anion Gap 7 7 - 16 [facility] Glucose 114(H) 70 - 100 mg/dL [facility] BUN 4(L) 8 - 25 mg/dL [facility] Creatinine 0.5 0.5 - 1.3 mg/dL [facility] Comment: The specimen is icteric. ??A high bilirubin level is known to cause a false decrease in measured creatinine. NOTE: Estimated GFR (Cockroft-Gault) will NOT be calculated unless patient Height and Weight were entered. Also, Kidney Disease Stage (GFR) and Estimated GFR (Cockroft-Gault) will NOT be calculated if Creatinine result is <0.2. Kidney Disease Stage >90 mL/MIN [facility] Comment: NOTE; ??The GFR is an estimated [...] failure or on dialysis Est GFR (Cockcroft-G) 202 ml/MIN [facility] Comment: Estimated GFR(Cockroft-Gault)is used to calculate patient medication dosage Calcium 7.4(L) 8.6 - 10.3 mg/dL [facility] Total Protein 5.9(L) 6.4 - 8.3 g/dL [facility] Albumin 1.8(L) 3.5 - 5.0 g/dL [facility] Globulin 4.1(H) 2.3 - 3.5 gm/dL [facility] Albumin/Globulin Ratio 0.4(L) 1.1 - 1.8 [facility] Total Bilirubin 3.2(H) 0.0 - 1.2 mg/dL [facility] AST 103(H) 0 - 40 U/L [facility] ALT 22 0 - 41 U/L [facility] Alkaline Phosphatase 107 40 - 129 U/L [facility] 12/24/2019 7:39 AM CDT 12/24/2019 7:56 AM CDT Narrative Resulting Agency Comment IN us Darwin Walker MD LAB BLOOD ORDERABLES Final Result [facility] [address] [phone] * (ABNORMAL) CBC with auto differential (12/24/2019 7:39 AM CDT) WBC 6.9 3.8 - 9.9 X10 3/ul [facility] RBC 3.19(L) 4.30 - 5.80 x10 6/ul [facility] Hemoglobin 10.0(L) 13.0 - 17.5 g/dL [facility] Hct 30.5(L) 38.9 - 50.3 % [facility] MCV 95.6 81.3 - 96.4 fl [facility] MCH 31.3 27.1 - 33.3 pg [facility] MCHC 32.8 32.3 - 35.7 g/dl [facility] RDW 20.2(H) 11.1 - 14.9 % [facility] Plt Count 106(L) 150 - 400 x10 3/ul [facility] MPV 10.5 9.1 - 12.3 fl [facility] Neut % 74.1 % [facility] Immature Gran % 1.0 % [facility] Lymph % 12.8 % [facility] Roberts % 9.5 % [facility] Eos % 1.9 % [facility] AUTO BASO % 0.7 % [facility] NEUTROPHIL ABS # 5.1 1.7 - 6.5 x10 3/ul [facility] Immature Gran # 0.1 0.0 - 0.1 x10 3/ul [facility] Absolute Lymphs (auto) 0.9 0.8 - 3.3 x10 3/ul [facility] Absolute Monos (auto) 0.7 0.2 - 0.8 x10 3/ul [facility] Absolute Eos (auto) 0.1 0.0 - 0.5 x10 3/ul [facility] BASOPHIL ABS # 0.1 0.0 - 0.1 x10 3/ul [facility] Nucleat RBC Rel Count 0.0 #/100WBC [facility] NRBC abs 0.00 0.00 - 0.01 x10 3/ul [facility] Absolute Neutrophils 5,100 200 - 8,000 /ul [facility] 12/24/2019 7:39 AM CDT 12/24/2019 7:56 AM CDT Narrative Resulting Agency Comment IN Liborio Boswell MD LAB BLOOD ORDERABLES Final Re sult [facility] [address] [phone] * (ABNORMAL) Phosphorus (12/23/2019 6:08 AM CDT) Phosphorus 2.2(L) 2.3 - 4.5 mg/dL [facility] 12/23/2019 6:08 AM CDT 12/23/2019 6:33 AM CDT Narrative Resulting Agency Comment IN Liborio Boswell MD LAB BLOOD ORDERABLES [place] [address], [facility] [phone] * Magnesium (12/23/2019 6:08 AM CDT) Magnesium 1.7 1.6 - 2.6 mg/dL [facility] Comment: Magnesium sulfate therapy: ??3.0-9.1 mg/dL 12/23/2019 6:08 AM CDT 12/23/2019 6:33 AM CDT Narrative Resulting Agency Comment IN Liborio Boswell MD LAB BLOOD ORDERABLES Final Re sult Performing Organization Address [facility] [place] [address], [facility] [phone] * (ABNORMAL) Comprehensive metabolic panel (12/23/2019 6:08 AM CDT) Sodium 133(L) 135 - 145 mmol/L [facility] Potassium 4.0 3.3 - 5.1 mmol/L [facility] Chloride 105 96 - 108 mmol/L [facility] Carbon Dioxide 20(L) 22 - 32 mmol/L [facility] Anion Gap 8 7 - 16 [facility] Glucose 109(H) 70 - 100 mg/dL [facility] BUN 5(L) 8 - 25 mg/dL [facility] Creatinine 0.4(L) 0.5 - 1.3 mg/dL [facility] Comment: The specimen is icteric. ??A high bilirubin level is known to cause a false decrease in measured creatinine. NOTE: Estimated GFR (Cockroft-Gault) will NOT be calculated unless patient Height and Weight were entered. Also, Kidney Disease Stage (GFR) and Estimated GFR (Cockroft-Gault) will NOT be calculated if Creatinine result is <0.2. Kidney Disease Stage >90 mL/MIN [facility] Comment: NOTE; ??The GFR is an estimated [...] failure or on dialysis Est GFR (Cockcroft-G) 253 ml/MIN [facility] Comment: Estimated GFR(Cockroft-Gault)is used to calculate patient medication dosage Calcium 7.4(L) 8.6 - 10.3 mg/dL [facility] Total Protein 6.4 6.4 - 8.3 g/dL [facility] Albumin 2.0(L) 3.5 - 5.0 g/dL [facility] Globulin 4.4(H) 2.3 - 3.5 gm/dL [facility] Albumin/Globulin Ratio 0.5(L) 1.1 - 1.8 [facility] Total Bilirubin 2.4(H) 0.0 - 1.2 mg/dL [facility] AST 76(H) 0 - 40 U/L [facility] ALT 21 0 - 41 U/L [facility] Alkaline Phosphatase 90 40 - 129 U/L [facility] 12/23/2019 6:08 AM CDT 12/23/2019 6:33 AM CDT Narrative Resulting Agency Comment IN us Liborio Boswell MD LAB BLOOD ORDERABLES Final Re sult [facility] [address] [place] [address], [facility] [phone] * (ABNORMAL) CBC with auto differential (12/23/2019 6:08 AM CDT) WBC 7.6 3.8 - 9.9 X10 3/ul [facility] RBC 3.27(L) 4.30 - 5.80 x10 6/ul [facility] Hemoglobin 10.1(L) 13.0 - 17.5 g/dL [facility] Hct 30.4(L) 38.9 - 50.3 % [facility] MCV 93.0 81.3 - 96.4 fl [facility] MCH 30.9 27.1 - 33.3 pg [facility] MCHC 33.2 32.3 - 35.7 g/dl [facility] RDW 19.5(H) 11.1 - 14.9 % [facility] Plt Count 113(L) 150 - 400 x10 3/ul [facility] MPV 10.2 9.1 - 12.3 fl [facility] Neut % 72.0 % [facility] Immature Gran % 1.6 % [facility] Lymph % 13.8 % [facility] Roberts % 9.8 % [facility] Eos % 1.7 % [facility] AUTO BASO % 1.1 % [facility] NEUTROPHIL ABS # 5.5 1.7 - 6.5 x10 3/ul [facility] Immature Gran # 0.1 0.0 - 0.1 x10 3/ul [facility] Absolute Lymphs (auto) 1.0 0.8 - 3.3 x10 3/ul [facility] Absolute Monos (auto) 0.7 0.2 - 0.8 x10 3/ul [facility] Absolute Eos (auto) 0.1 0.0 - 0.5 x10 3/ul [facility] BASOPHIL ABS # 0.1 0.0 - 0.1 x10 3/ul [facility] Nucleat RBC Rel Count 0.0 #/100WBC [facility] NRBC abs 0.00 0.00 - 0.01 x10 3/ul [facility] Absolute Neutrophils 5,500 200 - 8,000 /ul [facility] 12/23/2019 6:08 AM CDT 12/23/2019 6:33 AM CDT Narrative Resulting Agency Comment IN us Liborio Boswell MD LAB BLOOD ORDERABLES Final Re sult [facility] [address] [phone] * US Guided Paracentesis (12/23/2019 12:00 AM CDT) Anatomical Region Laterality Modality Abdomen N/A Ultrasound 12/23/2019 3:11 PM CDT Narrative 12/23/2019 3:12 PM CDT Patient Name: JARED BRUMFIELD JR ?Ordering Dr: Darwin Walker MD ?? D.O.B: 1970 ? Exam Date: 12/23/19 ?? 0000 ?? Age: 49 ?Sex: Male ? MR#: [id number] ?? Loc: ??C253-01 ? RADIOLOGY REPORT ?? Order #[id number] ?? Ultrasound ? US Guided Paracentesis in US ? Signed ?? EXAM DESCRIPTION: ?? US Guided Paracentesis in US ? HISTORY: ?? Abdominal ascites. ??Ultrasound-guided paracentesis is requested. ? COMPARISON: ?? Images the abdomen 12/19/2019 ? TECHNIQUE/FINDINGS: ? Immediately prior to the procedure, the healthcare team performed the safety ?? pause and verbally confirmed that the patient, the planned procedure, the site ?? and side were accurate. ? Pre-procedure sonographic scanning demonstrated the largest pocket of ascites ?? in the left lower quadrant. ??The skin was prepped and draped. ??Local ?? anesthesia was used with 1% lidocaine, including subcutaneous and deeper ?? tissues. ??Under ultrasound guidance, a 5-Portuguese 7 cm One Step Centesis ?? catheter was used to drain 2.5 liters of serous fluid from the left lower ?? quadrant. ??Needle placement was documented [...] ml ? IMPRESSION: ?? Successful ultrasound-guided paracentesis. 2.5 liters of serous ?? fluid was removed. ? THIS IS AN ELECTRONICALLY VERIFIED FINAL REPORT ?? 12/23/2019 3:12 PM - Electronically signed by Dany Storey M.D. ?? Dany Storey M.D. ? HL ?? D: ??12/23/2019 3:12 PM ?? T: ? Report ID: [id number] ?? Reading Location: ??[id number] ? REPORT ELECTRONICALLY SIGNED IN OTHER VENDOR SYSTEM ?? Resulting Agency Comment I Procedure Note Dany Storey MD - 12/23/2019 Patient Name: JARED BRUMFIELD Dr: Darwin Walker MD D.O.B: 1970 Exam Date: 12/23/19 0000 Age: 49 Sex: Male MR#: [id number] Loc: C253-01 RADIOLOGY REPORT Order #[id number] Ultrasound US Guided Paracentesis in US Signed EXAM DESCRIPTION: US Guided Paracentesis in US HISTORY: Abdominal ascites. Ultrasound-guided paracentesis isrequested. COMPARISON: Images the abdomen 12/19/2019 TECHNIQUE/FINDINGS: Immediately prior to the procedure, the healthcare team performed thesafety pause and verbally confirmed that the patient, the planned procedure, thesite and side were accurate. Pre-procedure sonographic scanning demonstrated the largest pocket ofascites in the left lower quadrant. The skin was prepped and draped. Local anesthesia was used with 1% lidocaine, including subcutaneous and deeper tissues. Under ultrasound guidance, a 5-Portuguese 7 cm One Step Centesis catheter was used to drain 2.5 liters of serous fluid from the left lower quadrant. Needle placement was documented with sonographic images. The catheter was removed with little remaining ascites identified.Hemostasis was achieved. The area was dressed with a bandage. The patient tolerated the procedure well with no complication evident andwas discharged in stable condition. Post procedure education was completed including pain management instructions. Estimated blood loss: <5 ml IMPRESSION: Successful ultrasound-guided paracentesis. 2.5 liters ofserous fluid was removed. THIS IS AN ELECTRONICALLY VERIFIED FINAL REPORT 12/23/2019 3:12 PM - Electronically signed by Dany Storey M.D. T: Report ID: [id number] Reading Location: [id number] REPORT ELECTRONICALLY SIGNED IN OTHER VENDOR SYSTEM Darwin Walker MD IMG US PROCEDURES Final Res ult * (ABNORMAL) Phosphorus (12/22/2019 6:24 AM CDT) Phosphorus 1.9(L) 2.3 - 4.5 mg/dL [facility] 12/22/2019 6:24 AM CDT 12/22/2019 7:19 AM CDT Narrative Resulting Agency Comment IN Liborio Boswell MD LAB BLOOD ORDERABLES Final Re sult Performing Organization Address City/[facility]/ZIP Co de Phone Number [address] [phone] * Magnesium (12/22/2019 6:24 AM CDT) Magnesium 1.7 1.6 - 2.6 mg/dL [facility] Comment: Magnesium sulfate therapy: ??3.0-9.1 mg/dL 12/22/2019 6:24 AM CDT 12/22/2019 7:19 AM CDT Narrative Resulting Agency Comment IN Liborio Boswell MD LAB BLOOD ORDERABLES Final Re sult Performing Organization Address City/[facility]/ZIP Co de Phone Number [address] [phone] * (ABNORMAL) Comprehensive metabolic panel (12/22/2019 6:24 AM CDT) Sodium 135 135 - 145 mmol/L [facility] Potassium 3.1(L) 3.3 - 5.1 mmol/L [facility] Chloride 106 96 - 108 mmol/L [facility] Carbon Dioxide 23 22 - 32 mmol/L [facility] Anion Gap 6(L) 7 - 16 [facility] Glucose 118(H) 70 - 100 mg/dL [facility] BUN 6(L) 8 - 25 mg/dL [facility] Creatinine 0.5 0.5 - 1.3 mg/dL [facility] Comment: The specimen is icteric. ??A high bilirubin level is known to cause a false decrease in measured creatinine. NOTE: Estimated GFR (Cockroft-Gault) will NOT be calculated unless patient Height and Weight were entered. Also, Kidney Disease Stage (GFR) and Estimated GFR (Cockroft-Gault) will NOT be calculated if Creatinine result is <0.2. Kidney Disease Stage >90 mL/MIN [facility] Comment: NOTE; ??The GFR is an estimated [...] failure or on dialysis Est GFR (Cockcroft-G) 202 ml/MIN [facility] Comment: Estimated GFR(Cockroft-Gault)is used to calculate patient medication dosage Calcium 7.3(L) 8.6 - 10.3 mg/dL [facility] Total Protein 5.9(L) 6.4 - 8.3 g/dL [facility] Albumin 1.9(L) 3.5 - 5.0 g/dL [facility] Globulin 4.0(H) 2.3 - 3.5 gm/dL [facility] Albumin/Globulin Ratio 0.5(L) 1.1 - 1.8 [facility] Total Bilirubin 2.8(H) 0.0 - 1.2 mg/dL [facility] AST 68(H) 0 - 40 U/L [facility] ALT 19 0 - 41 U/L [facility] Alkaline Phosphatase 70 40 - 129 U/L [facility] 12/22/2019 6:24 AM CDT 12/22/2019 7:19 AM CDT Narrative Resulting Agency Comment IN us Liborio Boswell MD LAB BLOOD ORDERABLES Final Re sult [facility] [address] [place] [address], [facility] [phone] * (ABNORMAL) CBC with auto differential (12/22/2019 6:24 AM CDT) WBC 6.2 3.8 - 9.9 X10 3/ul [facility] RBC 3.06(L) 4.30 - 5.80 x10 6/ul [facility] Hemoglobin 9.5(L) 13.0 - 17.5 g/dL [facility] Hct 29.4(L) 38.9 - 50.3 % [facility] MCV 96.1 81.3 - 96.4 fl [facility] MCH 31.0 27.1 - 33.3 pg [facility] MCHC 32.3 32.3 - 35.7 g/dl [facility] RDW 19.8(H) 11.1 - 14.9 % [facility] Plt Count 113(L) 150 - 400 x10 3/ul [facility] MPV 10.1 9.1 - 12.3 fl [facility] Neut % 64.1 % [facility] Immature Gran % 1.3 % [facility] Lymph % 16.6 % [facility] Roberts % 14.1 % [facility] Eos % 2.9 % [facility] AUTO BASO % 1.0 % [facility] NEUTROPHIL ABS # 3.9 1.7 - 6.5 x10 3/ul [facility] Immature Gran # 0.1 0.0 - 0.1 x10 3/ul [facility] Absolute Lymphs (auto) 1.0 0.8 - 3.3 x10 3/ul [facility] Absolute Monos (auto) 0.9(H) 0.2 - 0.8 x10 3/ul [facility] Absolute Eos (auto) 0.2 0.0 - 0.5 x10 3/ul [facility] BASOPHIL ABS # 0.1 0.0 - 0.1 x10 3/ul [facility] Nucleat RBC Rel Count 0.0 #/100WBC [facility] NRBC abs 0.00 0.00 - 0.01 x10 3/ul [facility] Absolute Neutrophils 3,900 200 - 8,000 /ul [facility] 12/22/2019 6:24 AM CDT 12/22/2019 7:19 AM CDT Narrative Resulting Agency Comment IN us Liborio Boswell MD LAB BLOOD ORDERABLES Final Re sult [facility] [address] [place] [address], [facility] [phone] * XR Chest 1 View (12/22/2019 12:00 AM CDT) Anatomical Region Laterality Modality Body, Chest N/A Radiographic Lynette ging 12/22/2019 8:31 AM CDT Narrative 12/22/2019 8:33 AM CDT Patient Name: JARED BRUMFIELD JR ?Ordering Dr: Genie Moffett MD ?? D.O.B: 1970 ? Exam Date: 12/22/19 ?? 0000 ?? Age: 49 ?Sex: Male ? MR#: [id number] ?? Loc: ??C253-01 ? RADIOLOGY REPORT ?? Order #[id number] ?? Radiology ? Chest 1 View Portable ? Signed ?? EXAM DESCRIPTION: ?? Chest 1 View Portable ? REASON FOR STUDY: ?? SOB X TODAY ? TECHNIQUE: ?? Frontal radiographic view of the chest acquired. ? COMPARISON: ?? 12/18/2019 ? FINDINGS: ? The heart size is upper limits of normal, which may be accentuated by low lung ?? volumes. ??There is mild prominence of pulmonary vasculature. ??There are low ?? lung volumes. ??There are grossly stable to mildly increased patchy left ?? basilar airspace opacities. ??There are mild patchy right basilar airspace ?? opacities. ??There is no definite evidence of pleural effusion. ??There is no ?? definite evidence of a pneumothorax. ? The osseous structures are grossly stable. ? IMPRESSION: ? 1. ??Grossly stable to mildly increased patchy left basilar airspace opacities. ? 2. ??Low lung volumes with mild patchy bibasilar airspace opacities, which may ?? be related to subsegmental atelectasis versus additional airspace disease. ? 3. ??Mild prominence of pulmonary vasculature, which may be related to low lung ?? volumes. ? THIS IS AN ELECTRONICALLY VERIFIED FINAL REPORT ?? 12/22/2019 8:33 AM - Electronically signed by Jone Cody D.O. ?? Jone Cody D.O. ? PS ?? D: ??12/22/2019 8:33 AM ?? T: ? Report ID: [id number] ?? Reading Location: ??[id number] ? REPORT ELECTRONICALLY SIGNED IN OTHER VENDOR SYSTEM ?? Resulting Agency Comment I Procedure Note Jone Cody DO - 12/22/2019 Patient Name: JARED BRUMFIELD Eddie Chowdhury Dr: Genie Moffett MD, D.O.B: 1970 Exam Date: 12/22/19 0000 Age: 49 Sex: Male MR#: [id number] Loc: C253-01 RADIOLOGY REPORT Order #[id number] Radiology Chest 1 View Portable Signed EXAM DESCRIPTION: Chest 1 View Portable REASON FOR STUDY: SOB X TODAY TECHNIQUE: Frontal radiographic view of the chest acquired. COMPARISON: 12/18/2019 FINDINGS: The heart size is upper limits of normal, which may be accentuated by lowlung volumes. There is mild prominence of pulmonary vasculature. There arelow lung volumes. There are grossly stable to mildly increased patchy left basilar airspace opacities. There are mild patchy right basilar airspace opacities. There is no definite evidence of pleural effusion. There isno definite evidence of a pneumothorax. The osseous structures are grossly stable. IMPRESSION: 1. Grossly stable to mildly increased patchy left basilar airspaceopacities. 2. Low lung volumes with mild patchy bibasilar airspace opacities, whichmay be related to subsegmental atelectasis versus additional airspacedisease. 3. Mild prominence of pulmonary vasculature, which may be related to lowlung volumes. THIS IS AN ELECTRONICALLY VERIFIED FINAL REPORT 12/22/2019 8:33 AM - Electronically signed by Jone Cody D.O. PS T: Report ID: [id number] Reading Location: [place] [address] REPORT ELECTRONICALLY SIGNED IN OTHER VENDOR SYSTEM us Genie Moffett MD IMG XR PROCEDURES Final Res ult * (ABNORMAL) CRP (acute phase) (12/21/2019 6:41 AM CDT) [facility] C-Reactive Protein 73.3(H) 0.0 - 10.0 mg/L [facility] 12/21/2019 6:41 AM CDT 12/21/2019 6:57 AM CDT Narrative Resulting Agency Comment IN us Genie Moffett MD LAB BLOOD ORDERABLES [place] [address], [facility] [phone] * B-type natriuretic peptide (12/21/2019 6:41 AM CDT) B-Natriuretic Peptide 38 0 - 100 pg/mL [facility] Comment: B Natriutetic Peptide METHOD: ??Siemens Centaur XP using CHRISTOPHER. Decision threshold of 100 pg/mL has been demonstrated to provide the maximal combination of sensitivity, specificity, and predictive value for the diagnosis of congestive heart failure (CHF). ??Virtually all patients with no evidence of CHF have BNP values <100 pg/mL. NOTE: ??Nesiritide (Natrecor) interferes with the BNP assay. BNP result will be invalid if drawn within 2 hours of bolus or infusion of nesiritide. 12/21/2019 6:41 AM CDT 12/21/2019 6:57 AM CDT Narrative Resulting Agency Comment IN Genie Moffett MD LAB BLOOD ORDERABLES Final Result Performing Organization Address [facility] Co de Phone Number [address] [phone] * (ABNORMAL) Phosphorus (12/21/2019 6:41 AM CDT) Pathologist [facility] Phosphorus 1.7(L) 2.3 - 4.5 mg/dL [facility] 12/21/2019 6:41 AM CDT 12/21/2019 6:57 AM CDT Narrative Resulting Agency Comment IN Genie Moffett MD LAB BLOOD ORDERABLES Final Result [address] [phone] * Magnesium (12/21/2019 6:41 AM CDT) Pathologist [facility] Magnesium 2.0 1.6 - 2.6 mg/dL [facility] Comment: Magnesium sulfate therapy: ??3.0-9.1 mg/dL 12/21/2019 6:41 AM CDT 12/21/2019 6:57 AM CDT Narrative Resulting Agency Comment IN Genie Moffett MD LAB BLOOD ORDERABLES Final Result [facility] [address] [place] [address], [facility] [phone] * (ABNORMAL) Comprehensive metabolic panel (12/21/2019 6:41 AM CDT) Sodium 136 135 - 145 mmol/L [facility] Potassium 2.7(L) 3.3 - 5.1 mmol/L [facility] Chloride 105 96 - 108 mmol/L [facility] Carbon Dioxide 24 22 - 32 mmol/L [facility] Anion Gap 7 7 - 16 [facility] Glucose 125(H) 70 - 100 mg/dL [facility] BUN 11 8 - 25 mg/dL [facility] Creatinine 0.6 0.5 - 1.3 mg/dL [facility] Comment: The specimen is icteric. ??A high bilirubin level is known to cause a false decrease in measured creatinine. NOTE: Estimated GFR (Cockroft-Gault) will NOT be calculated unless patient Height and Weight were entered. Also, Kidney Disease Stage (GFR) and Estimated GFR (Cockroft-Gault) will NOT be calculated if Creatinine result is <0.2. Kidney Disease Stage >90 mL/MIN [facility] Comment: NOTE; ??The GFR is an estimated [...] failure or on dialysis Est GFR (Cockcroft-G) 169 ml/MIN [facility] Comment: Estimated GFR(Cockroft-Gault)is used to calculate patient medication dosage Calcium 7.5(L) 8.6 - 10.3 mg/dL [facility] Total Protein 6.0(L) 6.4 - 8.3 g/dL [facility] Albumin 1.8(L) 3.5 - 5.0 g/dL [facility] Globulin 4.2(H) 2.3 - 3.5 gm/dL [facility] Albumin/Globulin Ratio 0.4(L) 1.1 - 1.8 [facility] Total Bilirubin 2.3(H) 0.0 - 1.2 mg/dL [facility] AST 57(H) 0 - 40 U/L [facility] ALT 19 0 - 41 U/L [facility] Alkaline Phosphatase 70 40 - 129 U/L [facility] 12/21/2019 6:41 AM CDT 12/21/2019 6:57 AM CDT Narrative Resulting Agency Comment IN Genie Moffett MD LAB BLOOD ORDERABLES Final Result [facility] [address] [phone] * (ABNORMAL) Erythrocyte sedimentation rate (12/21/2019 6:41 AM CDT) ESR 22(H) 1 - 15 mm/hr [facility] 12/21/2019 6:41 AM CDT 12/21/2019 6:57 AM CDT Narrative Resulting Agency Comment IN Genie Moffett MD LAB BLOOD ORDERABLES Final Result [facility] [address] [place] [address], [facility] [phone] * (ABNORMAL) CBC with auto differential (12/21/2019 6:41 AM CDT) WBC 7.6 3.8 - 9.9 X10 3/ul [facility] RBC 3.22(L) 4.30 - 5.80 x10 6/ul [facility] Hemoglobin 9.8(L) 13.0 - 17.5 g/dL [facility] Hct 30.2(L) 38.9 - 50.3 % [facility] MCV 93.8 81.3 - 96.4 fl [facility] MCH 30.4 27.1 - 33.3 pg [facility] MCHC 32.5 32.3 - 35.7 g/dl [facility] RDW 20.9(H) 11.1 - 14.9 % [facility] Plt Count 112(L) 150 - 400 x10 3/ul [facility] MPV 10.5 9.1 - 12.3 fl [facility] Neut % 71.7 % [facility] Immature Gran % 0.9 % [facility] Lymph % 11.5 % [facility] Roberts % 12.2 % [facility] Eos % 2.7 % [facility] AUTO BASO % 1.0 % [facility] NEUTROPHIL ABS # 5.5 1.7 - 6.5 x10 3/ul [facility] Immature Gran # 0.1 0.0 - 0.1 x10 3/ul [facility] Absolute Lymphs (auto) 0.9 0.8 - 3.3 x10 3/ul [facility] Absolute Monos (auto) 0.9(H) 0.2 - 0.8 x10 3/ul [facility] Absolute Eos (auto) 0.2 0.0 - 0.5 x10 3/ul [facility] BASOPHIL ABS # 0.1 0.0 - 0.1 x10 3/ul [facility] Nucleat RBC Rel Count 0.0 #/100WBC [facility] NRBC abs 0.00 0.00 - 0.01 x10 3/ul [facility] Absolute Neutrophils 5,500 200 - 8,000 /ul [facility] 12/21/2019 6:41 AM CDT 12/21/2019 6:57 AM CDT Narrative Resulting Agency Comment IN Genie Moffett MD LAB BLOOD ORDERABLES Final Result Performing Organization Address City/[facility] Co de Phone Number [address] [phone] * Strep pneumoniae antigen, urine (12/20/2019 6:30 PM CDT) Ur Strep pneumoniae Ag NEGATIVE NEGATIVE [facility] 12/20/2019 6:30 PM CDT 12/20/2019 7:04 PM CDT Narrative [facility] - 12/20/2019 7:05 PM CDT Collected By SB Urine collection method Indwelling catheter Resulting Agency Comment IN Genie Moffett MD LAB MICROBIOLOGY - GENERAL ORDERABLES Final Result [address] [phone] * Stool culture Stool (12/20/2019 1:46 PM CDT) CULTURE STOOL This laboratory routinely screens for Salmonella, Shigella, Campylobacter, E.coli 0157, Edwardsiella, Aeromonas and Plesiomonas. NO ENTERIC STOOL PATHOGENS ISOLATED. [facility] Stool 12/20/2019 1:46 PM CDT 12/20/2019 2:18 PM CDT Narrative [facility] - 12/23/2019 11:36 AM CDT Collected By SB Resulting Agency Comment Collected By SB ?? Liborio Boswell MD LAB MICROBIOLOGY - GENERAL OR DERABLES Final Result Performing Organization Address [facility] Co de Phone Number [address] [address], [facility] [phone] * C. difficile toxin assay (12/20/2019 1:46 PM CDT) [facility] St C.difficile Tox PCR POSITIVE NEGATIVE [facility] Comment: Toxigenic C. Difficile DNA sequences are detected. ALL IN PATIENTS REQUIRE ISOLATION 12/20/2019 1:46 PM CDT 12/20/2019 2:18 PM CDT Narrative [facility] - 12/20/2019 3:09 PM CDT Pt had 3 or more type 6-7 stools in less than 24hrs Y Received antibiotics or antineoplastics in past 8 wks Y Received laxative,stool softener,enema or tube fdg past 48hr Y Received pro-motility medication(s) (i.e. Reglan) N Received bowel prep/had GI procedure or surgery N Displaying signs/symptoms of inflammatory colitis Y Collected By SB Resulting Agency Comment IN Liborio Boswell MD LAB MICROBIOLOGY - GENERAL OR DERABLES Final Result Performing Organization Address City/[facility] Co de Phone Number [address] [address], [facility] [phone] * (ABNORMAL) CRP (acute phase) (12/20/2019 5:13 AM CDT) [facility] C-Reactive Protein 90.5(H) 0.0 - 10.0 mg/L [facility] 12/20/2019 5:13 AM CDT 12/20/2019 5:20 AM CDT Narrative Resulting Agency Comment IN Genie Moffett MD LAB BLOOD ORDERABLES Final Result Performing Organization Address [facility] Co de Phone Number [address] [phone] * B-type natriuretic peptide (12/20/2019 5:13 AM CDT) B-Natriuretic Peptide 75 0 - 100 pg/mL [facility] Comment: B Natriutetic Peptide METHOD: ??Siemens Centaur XP using CHRISTOPHER. Decision threshold of 100 pg/mL has been demonstrated to provide the maximal combination of sensitivity, specificity, and predictive value for the diagnosis of congestive heart failure (CHF). ??Virtually all patients with no evidence of CHF have BNP values <100 pg/mL. NOTE: ??Nesiritide (Natrecor) interferes with the BNP assay. BNP result will be invalid if drawn within 2 hours of bolus or infusion of nesiritide. 12/20/2019 5:13 AM CDT 12/20/2019 5:20 AM CDT Narrative Resulting Agency Comment IN Genie Moffett MD LAB BLOOD ORDERABLES Final Result Performing Organization Address [facility] de Phone Number [address] [phone] * (ABNORMAL) PROCALCITONIN Post-abt 72 Hour (12/20/2019 5:13 AM CDT) Pathologist [facility] PROCALCITONIN Post-abt 72 Hour 1.64(H) 0.0 - 0.24 ng/mL [facility] Comment: Guidelines for use with Community Acquired Pneumonia(CAP)-ONLY: ?? <0.1 ng/mL or decrease by >90% from initial: ?Cessation of antibiotics is STRONGLY encouraged ?? 0.1-0.24 ng/mL or decrease by >80% from initial: ?Cessation of antibiotics is encouraged ?? 0.25-0.5 ng/mL: Cessation of antibiotics is discouraged ?? >0.5 ng/mL: Cessation of antibiotics is STRONGLY discouraged 12/20/2019 5:13 AM CDT 12/20/2019 5:20 AM CDT Narrative Resulting Agency Comment IN Neil Goodwin MD LAB BLOOD ORDERABLES Final Re sult Performing Organization Address City/[facility]/ZIP Co de Phone Number [address] [phone] * (ABNORMAL) Erythrocyte sedimentation rate (12/20/2019 5:13 AM CDT) ESR 34(H) 1 - 15 mm/hr [facility] 12/20/2019 5:13 AM CDT 12/20/2019 5:20 AM CDT Narrative Resulting Agency Comment IN Genie Moffett MD LAB BLOOD ORDERABLES Final Result Performing Organization Address City/[facility]/ZIP Co de Phone Number [address] [phone] * SCAN - LABS (12/20/2019 12:00 AM CDT) Narrative 12/20/2019 12:00 AM CDT Ordered by an unspecified provider. Crista Provider Final Res ult * COVID-19 Coronavirus RNA (12/19/2019 12:55 PM CDT) Pathologist [facility] COVID-19 Coronavirus RNA NOT DETECTED [facility] Comment: A negative result does not rule out the possibility of COVID-19 and should not be used as the sole basis for patient management decisions. Coronavirus (COVID-19) Interp SEE COMMENT [facility] Coronavirus (COVID-19) [facility] Performing Lab DON [facility] 12/19/2019 12:5 5 PM CDT 12/19/2019 1:04 PM CDT Narrative [facility] - 12/19/2019 8:24 PM CDT Screening for emergent/scheduled (< 12hr) surg or procedure N Resulting Agency Comment IN Genie Moffett MD LAB MICROBIOLOGY - GENERAL ORDERABLES Final Result Performing Organization Address [facility] Co de Phone Number [address] [phone] * Infection Prevention MRSA Only (Staphylococcus aureus) PCR (12/19/2019 12:55 PM CDT) MRSA Surveill Initial POSITIVE NEGATIVE [facility] Comment: ?MRSA target DNA sequences are detected. ISOLATION ALERT ? THIS ORGANISM REQUIRES PATIENT ISOLATION 12/19/2019 12:5 5 PM CDT 12/19/2019 1:04 PM CDT Narrative [facility] - 12/19/2019 2:06 PM CDT Collected By AB Resulting Agency Comment IN Genie Moffett MD LAB MICROBIOLOGY - GENERAL ORDERABLES Final Result Performing Organization Address City/[facility] Co de Phone Number [address] [phone] * CT Abdomen Pelvis W Contrast (12/19/2019 12:16 PM CDT) Anatomical Region Laterality Modality Body N/A Computed Tomogra phy 12/19/2019 2:17 PM CDT Narrative 12/19/2019 2:29 PM CDT Patient Name: JARED BRUMFIELD JR ?Ordering Dr: Liborio Boswell MD ?? D.O.B: 1970 ? Exam Date: 12/19/19 ?? 1216 ?? Age: 49 ?Sex: Male ? MR#: [id number] ?? Loc: ??N291-02 ? RADIOLOGY REPORT ?? Order #[id number] ?? CT Scan ? CT Abd/Pelvis W IV Contrast ? Signed ?? EXAM DESCRIPTION: ?? CT Abd/Pelvis W IV Contrast ? REASON FOR STUDY: ?? Left lower quadrant pain x1 day. ??Colitis seen on ?? 12/08/2018. ? TECHNIQUE: ??CT scan of the abdomen and pelvis performed with intravenous and ? without oral contrast using helical scanning technique with dynamic ?? intravenous contrast injection. Reconstructed coronal and sagittal MPR images ?? reviewed. All images stored on PACS. ? Automated exposure control was used as a dose optimization technique for this ?? examination. ? CONTRAST TYPE/DOSE: ?? 100 mL Optiray 350 intravenous contrast injected via ? right forearm ? COMPARISON: ?? 12/09/2019 ? FINDINGS: ? EXAMINATION LIMITED BY MOTION. ? LOWER CHEST: ??Respiratory motion obscures the lung bases. ??There are trace ?? effusions. ??New mild patchy bibasilar consolidations, left greater than right. ?This likely represents combination of atelectasis and pneumonia. ? LIVER: ??The liver is normal in size. ??There is liver surface nodularity in ?? keeping with cirrhosis. ??No definite liver lesion is seen. ? GALLBLADDER: ??Gallbladder is partially distended. ??Mild thickening of the ?? gallbladder, likely due to the patient's underlying liver disease. ??No gross ?? evidence of acute cholecystitis. ? BILE DUCTS: ??No intrahepatic or extrahepatic ductal dilatation. ? SPLEEN: ??Stable splenomegaly measuring approximately 16 cm. ? PANCREAS: ??Pancreas is normal in size. ??No gross solid lesion or main ductal ?? dilatation. ? ADRENALS: ??Adrenal glands appear normal. ? KIDNEYS/URINARY TRACT: ??The kidneys are normal in size and symmetric in ?? enhancement. ??No hydronephrosis. ??Urinary bladder is decompressed with a Harrington ?? catheter in place. ? GI: ??Rectal tube noted. ??Small amount of liquid stool within the rectum as ?? evidence for diarrheal state. ??There is diffuse thickening and ?? hyperenhancement of a nondilated colon with liquid stools as evidence for ?? pancolitis. ??No definite pneumatosis. ??Moderate gaseous distention of the ?? stomach. ??A small amount of high density within the proximal duodenum, likely ?? ingested material (82). ??The small bowel is prominent in fluid-filled without ?? evidence of obstruction. ? PERITONEUM: ??Improved small volume ascites, greatest within the pelvis. ??There ?? are prominent periportal portal and peripancreatic lymph nodes, likely ?? reactive. ??No organized drainable fluid collection. ??No free air seen. ? Mesenteric edema is noted ? RETROPERITONEUM: ??Subcentimeter retroperitoneal lymph nodes, nonenlarged by ?? size criteria. ? REPRODUCTIVE: ??No significant abnormality. ? VASCULATURE: ??Splenorenal shunt. ??Gastroesophageal varices noted. ??Portal vein ?? is patent. ??Abdominal aorta is normal caliber. ??Minimal atherosclerotic ?? disease. ? MUSCULOSKELETAL: ??Mild body wall edema. ? OTHER: ??No other abnormality. ? IMPRESSION: ? 1. ??Increased thickening and mucosal hyperenhancement of the colon with liquid ?? stool as evidence for pancolitis. ??Differential is infectious, inflammatory or ?? ischemic. ??Recommend correlation with serum lactate. ??Recommend close ?? monitoring of the patient's abdominal exam and continued radiographic ?? follow-up. ? 2. ??Improved small volume ascites. ? 3. ??CT findings of cirrhosis and portal hypertension including splenomegaly, ?? splenorenal shunt and varices. ? 4. ??New mild patchy bibasilar consolidations, left greater than right. ??This ?? likely represents a combination of atelectasis and pneumonia. ? THIS IS AN ELECTRONICALLY VERIFIED FINAL REPORT ?? 12/19/2019 2:29 PM - Electronically signed by Marcio Morris M.D. ?? Marcio Morris M.D. ? AG ?? D: ??12/19/2019 2:28 PM ?? T: ? Report ID: [id number] ?? Reading Location: ??[id number] ? REPORT ELECTRONICALLY SIGNED IN OTHER VENDOR SYSTEM ?? Resulting Agency Comment I Procedure Note Marcio Morris MD - 12/19/2019 Patient Name: JARED BRUMFIELD Dr: Liborio Boswell MD D.O.B: 1970 Exam Date: 12/19/19 1216 Age: 49 Sex: Male MR#: [id number] Loc: N291-02 RADIOLOGY REPORT Order #[id number] CT Scan CT Abd/Pelvis W IV Contrast Signed EXAM DESCRIPTION: CT Abd/Pelvis W IV Contrast REASON FOR STUDY: Left lower quadrant pain x1 day. Colitis seen on 12/08/2018. TECHNIQUE: CT scan of the abdomen and pelvis performed with intravenousand without oral contrast using helical scanning technique with dynamic intravenous contrast injection. Reconstructed coronal and sagittal MPRimages reviewed. All images stored on PACS. Automated exposure control was used as a dose optimization technique forthis examination. CONTRAST TYPE/DOSE: 100 mL Optiray 350 intravenous contrast injectedvia right forearm COMPARISON: 12/09/2019 FINDINGS: EXAMINATION LIMITED BY MOTION. LOWER CHEST: Respiratory motion obscures the lung bases. There aretrace effusions. New mild patchy bibasilar consolidations, left greater thanright. This likely represents combination of atelectasis and pneumonia. LIVER: The liver is normal in size. There is liver surface nodularityin keeping with cirrhosis. No definite liver lesion is seen. GALLBLADDER: Gallbladder is partially distended. Mild thickening of the gallbladder, likely due to the patient's underlying liver disease. Nogross evidence of acute cholecystitis. BILE DUCTS: No intrahepatic or extrahepatic ductal dilatation. SPLEEN: Stable splenomegaly measuring approximately 16 cm. PANCREAS: Pancreas is normal in size. No gross solid lesion or mainductal dilatation. ADRENALS: Adrenal glands appear normal. KIDNEYS/URINARY TRACT: The kidneys are normal in size and symmetric in enhancement. No hydronephrosis. Urinary bladder is decompressed with aFoley catheter in place. GI: Rectal tube noted. Small amount of liquid stool within the rectumas evidence for diarrheal state. There is diffuse thickening and hyperenhancement of a nondilated colon with liquid stools as evidence for pancolitis. No definite pneumatosis. Moderate gaseous distention of the stomach. A small amount of high density within the proximal duodenum,likely ingested material (82). The small bowel is prominent in fluid-filledwithout evidence of obstruction. PERITONEUM: Improved small volume ascites, greatest within the pelvis.There are prominent periportal portal and peripancreatic lymph nodes, likely reactive. No organized drainable fluid collection. No free air seen. Mesenteric edema is noted RETROPERITONEUM: Subcentimeter retroperitoneal lymph nodes, nonenlargedby size criteria. REPRODUCTIVE: No significant abnormality. VASCULATURE: Splenorenal shunt. Gastroesophageal varices noted. Portalvein is patent. Abdominal aorta is normal caliber. Minimal atherosclerotic disease. MUSCULOSKELETAL: Mild body wall edema. OTHER: No other abnormality. IMPRESSION: 1. Increased thickening and mucosal hyperenhancement of the colon withliquid stool as evidence for pancolitis. Differential is infectious,inflammatory or ischemic. Recommend correlation with serum lactate. Recommend close monitoring of the patient's abdominal exam and continued radiographic follow-up. 2. Improved small volume ascites. 3. CT findings of cirrhosis and portal hypertension includingsplenomegaly, splenorenal shunt and varices. 4. New mild patchy bibasilar consolidations, left greater than right.This likely represents a combination of atelectasis and pneumonia. THIS IS AN ELECTRONICALLY VERIFIED FINAL REPORT 12/19/2019 2:29 PM - Electronically signed by Marcio Morris M.D. AG T: Report ID: [id number] Reading Location: [place] [address] REPORT ELECTRONICALLY SIGNED IN OTHER VENDOR SYSTEM Liborio Boswell MD IMG CT PROCEDURES Final Resul t * Ferritin (12/19/2019 10:32 AM CDT) Pathologist [facility] Ferritin 53.5 30.0 - 400.0 ng/mL [facility] 12/19/2019 10:3 2 AM CDT 12/19/2019 10:51 AM CDT Narrative Resulting Agency Comment IN Genie Moffett MD LAB BLOOD ORDERABLES Final Result [facility] [address] [place] [address], [facility] [phone] * ABO/Rh (12/19/2019 8:19 AM CDT) Blood Type OP [facility] 12/19/2019 8:19 AM CDT 12/19/2019 8:26 AM CDT Narrative Resulting Agency Comment IN Liborio Boswell MD LAB BLOOD BANK TEST ORDERABLE S Final Result Performing Organization Address [facility] Co de Phone Number [address] [phone] * (ABNORMAL) PROCALCITONIN Post-antibiotic (12/19/2019 5:00 AM CDT) PROCALCITONIN Post-antibiotic 1.92(H) 0.0 - 0.24 ng/mL [facility] Comment: Guidelines for use with Community Acquired Pneumonia(CAP)-ONLY: ?? <0.1 ng/mL or decrease by >90% from initial: ?Cessation of antibiotics is STRONGLY encouraged ?? 0.1-0.24 ng/mL or decrease by >80% from initial: ?Cessation of antibiotics is encouraged ?? 0.25-0.5 ng/mL: Cessation of antibiotics is discouraged ?? >0.5 ng/mL: Cessation of antibiotics is STRONGLY discouraged Reflex Procalcitonin will be drawn in 24 hours. 12/19/2019 5:00 AM CDT 12/19/2019 5:11 AM CDT Narrative Resulting Agency Comment IN Neil Goodwin MD LAB BLOOD ORDERABLES Final Re sult Performing Organization Address City/[facility]/ZIP Co de Phone Number [address] [phone] * Magnesium (12/19/2019 5:00 AM CDT) Magnesium 1.7 1.6 - 2.6 mg/dL [facility] Comment: Magnesium sulfate therapy: ??3.0-9.1 mg/dL 12/19/2019 5:00 AM CDT 12/19/2019 5:11 AM CDT Narrative Resulting Agency Comment IN Sherita Moss MD LAB BLOOD ORDERABLES Final Result [facility] [address] [place] [address], [facility] [phone] * (ABNORMAL) Comprehensive metabolic panel (12/19/2019 5:00 AM CDT) Sodium 134(L) 135 - 145 mmol/L [facility] Potassium 4.0 3.3 - 5.1 mmol/L [facility] Chloride 101 96 - 108 mmol/L [facility] Carbon Dioxide 22 22 - 32 mmol/L [facility] Anion Gap 11 7 - 16 [facility] Glucose 117(H) 70 - 100 mg/dL [facility] BUN 15 8 - 25 mg/dL [facility] Creatinine 0.9 0.5 - 1.3 mg/dL [facility] Comment: The specimen is icteric. ??A high bilirubin level is known to cause a false decrease in measured creatinine. NOTE: Estimated GFR (Cockroft-Gault) will NOT be calculated unless patient Height and Weight were entered. Also, Kidney Disease Stage (GFR) and Estimated GFR (Cockroft-Gault) will NOT be calculated if Creatinine result is <0.2. Kidney Disease Stage >90 mL/MIN [facility] Comment: NOTE; ??The GFR is an estimated [...] failure or on dialysis Est GFR (Cockcroft-G) 112 ml/MIN [facility] Comment: Estimated GFR(Cockroft-Gault)is used to calculate patient medication dosage Calcium 8.2(L) 8.6 - 10.3 mg/dL [facility] Total Protein 6.7 6.4 - 8.3 g/dL [facility] Albumin 2.2(L) 3.5 - 5.0 g/dL [facility] Globulin 4.5(H) 2.3 - 3.5 gm/dL [facility] Albumin/Globulin Ratio 0.5(L) 1.1 - 1.8 [facility] Total Bilirubin 3.7(H) 0.0 - 1.2 mg/dL [facility] AST 77(H) 0 - 40 U/L [facility] ALT 23 0 - 41 U/L [facility] Alkaline Phosphatase 77 40 - 129 U/L [facility] 12/19/2019 5:00 AM CDT 12/19/2019 5:11 AM CDT Narrative Resulting Agency Comment IN us Sherita Moss MD LAB BLOOD ORDERABLES Final Result [facility] [address] [phone] * (ABNORMAL) aPTT (12/19/2019 5:00 AM CDT) APTT 47(H) 27 - 36 SECONDS [facility] 12/19/2019 5:00 AM CDT 12/19/2019 5:11 AM CDT Narrative Resulting Agency Comment IN us Liborio Boswell MD LAB BLOOD ORDERABLES Final Re sult Performing Organization Address City/[facility]/ZIP Co de Phone Number [place] [id number] [address] [phone] * (ABNORMAL) Protime-INR (12/19/2019 5:00 AM CDT) [facility] PT 26.1(H) 12.2 - 14.8 SECONDS [facility] INR 2.30 [facility] Comment: Recommended Therapeutic range for Oral Anticoagulant Therapy No anti-coagulation therapy ? Normal Range: ?0.8-1.4 Anti-coagulation therapy ? Low intensity therapy ?2.0-3.0 ? High intensity therapy ?? 2.5-3.5 Critical Value ? Greater than or equal to 5.0 Patients should be monitored for serious bleeding. 12/19/2019 5:00 AM CDT 12/19/2019 5:11 AM CDT Narrative Resulting Agency Comment IN Liborio Boswell MD LAB BLOOD ORDERABLES Final Re sult Performing Organization Address City/[facility]/ZIP Co de Phone Number [place] [id number] [address] [phone] * (ABNORMAL) CBC with auto differential (12/19/2019 5:00 AM CDT) [facility] WBC 6.5 3.8 - 9.9 X10 3/ul [facility] RBC 3.31(L) 4.30 - 5.80 x10 6/ul [facility] Hemoglobin 10.2(L) 13.0 - 17.5 g/dL [facility] Hct 32.1(L) 38.9 - 50.3 % [facility] MCV 97.0(H) 81.3 - 96.4 fl [facility] MCH 30.8 27.1 - 33.3 pg [facility] MCHC 31.8(L) 32.3 - 35.7 g/dl [facility] RDW 21.2(H) 11.1 - 14.9 % [facility] Plt Count 99(L) 150 - 400 x10 3/ul [facility] MPV 11.1 9.1 - 12.3 fl [facility] Neut % 81.6 % [facility] Immature Gran % 0.5 % [facility] Lymph % 6.3 % [facility] Roberts % 9.7 % [facility] Eos % 1.1 % [facility] AUTO BASO % 0.8 % [facility] NEUTROPHIL ABS # 5.3 1.7 - 6.5 x10 3/ul [facility] Immature Gran # 0.0 0.0 - 0.1 x10 3/ul [facility] Absolute Lymphs (auto) 0.4(L) 0.8 - 3.3 x10 3/ul [facility] Absolute Monos (auto) 0.6 0.2 - 0.8 x10 3/ul [facility] Absolute Eos (auto) 0.1 0.0 - 0.5 x10 3/ul [facility] BASOPHIL ABS # 0.1 0.0 - 0.1 x10 3/ul [facility] Nucleat RBC Rel Count 0.3 #/100WBC [facility] NRBC abs 0.02(H) 0.00 - 0.01 x10 3/ul [facility] Absolute Neutrophils 5,300 200 - 8,000 /ul [facility] 12/19/2019 5:00 AM CDT 12/19/2019 5:11 AM CDT Narrative Resulting Agency Comment IN us Sherita Moss MD LAB BLOOD ORDERABLES Final Result [facility] [address] [place] [address], [facility] [phone] * US Abdomen Limited (12/19/2019 12:00 AM CDT) Anatomical Region Laterality Modality Abdomen N/A Ultrasound 12/19/2019 12:0 4 PM CDT Narrative 12/19/2019 12:06 PM CDT Patient Name: JARED BRUMFIELD JR ?Ordering Dr: Liborio Boswell MD ?? D.O.B: 1970 ? Exam Date: 12/19/19 ?? 0000 ?? Age: 49 ?Sex: Male ? MR#: [id number] ?? Loc: ??C254-01 ? RADIOLOGY REPORT ?? Order #[id number] ?? Ultrasound ? US Abdomen/Lmt Exam Spec Organ ? Signed ?? EXAM DESCRIPTION: ?? US Abdomen/Lmt Exam Spec Organ ? REASON FOR STUDY: ??To assess for possible ascites, history of previous ascites ?? and paracentesis 12/10/2019. ? TECHNIQUE: ??Ultrasound of the 4 quadrants of the abdomen was performed with ?? grayscale and color doppler. ? COMPARISON: ??CT abdomen and pelvis 12/09/2019. ? FINDINGS: ? Examination was technically limited secondary to patient factors. ??Assessment ?? of all quadrants of the abdomen show areas of shadowing bowel gas. ??There is ?? no demonstrated ascites. ? IMPRESSION: ?? No demonstration of ascites by ultrasound. ??However, examination ?? was somewhat limited. ??If there is a high clinical concern, may consider ?? repeated CT abdomen and pelvis. ? THIS IS AN ELECTRONICALLY VERIFIED FINAL REPORT ?? 12/19/2019 12:06 PM - Electronically signed by Yash Herr M.D. ?? Yash Herr M.D. ? CH ?? D: ??12/19/2019 12:06 PM ?? T: ? Report ID: [id number] ?? Reading Location: ??[id number] ? REPORT ELECTRONICALLY SIGNED IN OTHER VENDOR SYSTEM ?? Resulting Agency Comment I Procedure Note Yash Herr Jr., MD - 12/19/2019 Patient Name: JARED BRUMFIELD Eddie Chowdhury Dr: Liborio Boswell MD D.O.B: 1970 Exam Date: 12/19/19 0000 Age: 49 Sex: Male MR#: [id number] Loc: C254-01 RADIOLOGY REPORT Order #[id number] Ultrasound US Abdomen/Lmt Exam Spec Organ Signed EXAM DESCRIPTION: US Abdomen/Lmt Exam Spec Organ REASON FOR STUDY: To assess for possible ascites, history of previousascites and paracentesis 12/10/2019. TECHNIQUE: Ultrasound of the 4 quadrants of the abdomen was performedwith grayscale and color doppler. COMPARISON: CT abdomen and pelvis 12/09/2019. FINDINGS: Examination was technically limited secondary to patient factors.Assessment of all quadrants of the abdomen show areas of shadowing bowel gas. Thereis no demonstrated ascites. IMPRESSION: No demonstration of ascites by ultrasound. However,examination was somewhat limited. If there is a high clinical concern, may consider repeated CT abdomen and pelvis. THIS IS AN ELECTRONICALLY VERIFIED FINAL REPORT 12/19/2019 12:06 PM - Electronically signed by Yash Herr M.D. T: Report ID: [id number] Reading Location: [place] [address] REPORT ELECTRONICALLY SIGNED IN OTHER VENDOR SYSTEM Liborio Boswell MD IMG US PROCEDURES Final Resul t * (ABNORMAL) Lactate (12/18/2019 2:28 PM CDT) LACTATE 3.2(HH) mmol/L [facility] Comment: CRITICAL VALUE CALLED and REPEATED. at:1527 12/18/19 by:Kenyon Canseco to:REJI DAVIDSON [id number] Lactate Reference Range: 0.5 - 2.2 mmol/L 12/18/2019 2:28 PM CDT 12/18/2019 2:32 PM CDT Narrative Resulting Agency Comment IN Liborio Boswell MD LAB BLOOD ORDERABLES Final Re sult [facility] [address] [place] [address], [facility] [phone] * Blood culture Blood (12/18/2019 10:20 AM CDT) CULTURE BLOOD ADULT (SET OF 2) NO GROWTH DAY 5 [facility] Blood 12/18/2019 10:2 0 AM CDT 12/18/2019 10:25 AM CDT Narrative [facility] - 12/23/2019 2:25 PM CDT BC Peripheral Draw BC Peripheral Draw Resulting Agency Comment BC Peripheral Draw ?BC Peripheral Draw ?? Liborio Boswell MD LAB MICROBIOLOGY - GENERAL OR DERABLES Final Result [address] [phone] * Blood culture Blood (12/18/2019 10:10 AM CDT) Pathologist [facility] CULTURE BLOOD ADULT (SET OF 2) NO GROWTH DAY 5 [facility] Blood 12/18/2019 10:1 0 AM CDT 12/18/2019 10:16 AM CDT Narrative [facility] - 12/23/2019 2:16 PM CDT BC Peripheral Draw Resulting Agency Comment BC Peripheral Draw ?? Liborio Boswell MD LAB MICROBIOLOGY - GENERAL OR DERABLES Final Result Performing Organization Address [facility]/ZIP Co de Phone Number [address] [phone] * (ABNORMAL) Lactate (12/18/2019 10:10 AM CDT) [facility] LACTATE 3.9(HH) mmol/L [facility] Comment: CRITICAL VALUE CALLED and REPEATED. at:1044 12/18/19 by:Isabella Callejas to:STUART [id number] Lactate Reference Range: 0.5 - 2.2 mmol/L 12/18/2019 10:1 0 AM CDT 12/18/2019 10:15 AM CDT Narrative [facility] - 12/18/2019 10:46 AM CDT BC Peripheral Draw Resulting Agency Comment IN Liborio Boswell MD LAB BLOOD ORDERABLES Final Re sult [address] [phone] * aPTT (12/18/2019 10:10 AM CDT) [facility] APTT 35 27 - 36 SECONDS [facility] 12/18/2019 10:1 0 AM CDT 12/18/2019 10:16 AM CDT [facility] - 12/18/2019 10:28 AM CDT BC Peripheral Draw Resulting Agency Comment IN Liborio Boswell MD LAB BLOOD ORDERABLES Final Re sult Performing Organization Address City/[facility]/ZIP Co de Phone Number [address] [phone] * (ABNORMAL) Protime-INR (12/18/2019 10:10 AM CDT) [facility] PT 23.4(H) 12.2 - 14.8 SECONDS [facility] INR 2.00 [facility] Comment: Recommended Therapeutic range for Oral Anticoagulant Therapy No anti-coagulation therapy ? Normal Range: ?0.8-1.4 Anti-coagulation therapy ? Low intensity therapy ?2.0-3.0 ? High intensity therapy ?? 2.5-3.5 Critical Value ? Greater than or equal to 5.0 Patients should be monitored for serious bleeding. 12/18/2019 10:1 0 AM CDT 12/18/2019 10:16 AM CDT [facility] - 12/18/2019 10:28 AM CDT BC Peripheral Draw Resulting Agency Comment IN Liborio Boswell MD LAB BLOOD ORDERABLES Final Re sult Performing Organization Address City/[facility]/ZIP Co de Phone Number [address] [phone] * Urine culture (12/18/2019 10:00 AM CDT) [facility] CULTURE URINE NO GROWTH DAY 2 <1,000 CFU/ML [facility] 12/18/2019 10:0 0 AM CDT 12/18/2019 10:32 AM CDT Liborio Boswell MD LAB MICROBIOLOGY - GENERAL OR DERABLES Final Result [facility] [address] [place] [address], [facility] [phone] * (ABNORMAL) URINALYSIS, COMPLETE W/REFLEX TO CULTURE (12/18/2019 10:00 AM CDT) Ur Collection Type INDWELLING CATH [facility] Ur Culture Indicated? C S INDICATED [facility] Comment: Culture report to follow. Urine Color RED YELLOW [facility] Urine Clarity [facility] Urine Glucose (UA) NORMAL NORMAL mg/dL [facility] Urine Bilirubin NEGATIVE NEGATIVE mg/dl [facility] Urine Ketones 5(A) NEGATIVE mg/dL [facility] Ur Specific Douglas 1.035(H) 1.005 - 1.025 [facility] Urine Blood >=1.0 NEGATIVE mg/dl [facility] Urine pH 5.0 5.0 - 8.0 [facility] Urine Protein 100(A) NEGATIVE mg/dL [facility] Urine Urobilinogen NORMAL NORMAL mg/dL [facility] Urine Nitrite NEGATIVE NEGATIVE [facility] Ur Leukocyte Esterase NEGATIVE NEGATIVE Jimmy/ul [facility] Ur Microscopic Review Indicated or Ordered [facility] Urine RBC 6738 0 - 2 /HPF [facility] Urine WBC 104 0 - 2 /HPF [facility] Urine Mucus Marked /LPF [facility] 12/18/2019 10:0 0 AM CDT 12/18/2019 10:32 AM CDT Narrative [facility] - 12/18/2019 10:42 AM CDT Indication(s) for ordering ?? Dysuria lf Indwelling catheter Resulting Agency Comment IN us Liborio Boswell MD LAB URINE ORDERABLES Final Re sult Performing Organization Address City/[facility]/ZIP Co de Phone Number [address] [phone] * Magnesium (12/18/2019 5:38 AM CDT) Magnesium 1.8 1.6 - 2.6 mg/dL [facility] Comment: Magnesium sulfate therapy: ??3.0-9.1 mg/dL 12/18/2019 5:38 AM CDT 12/18/2019 5:57 AM CDT Narrative Resulting Agency Comment IN Sherita Moss MD LAB BLOOD ORDERABLES Final Result Performing Organization Address [facility] Co de Phone Number [address] [phone] * (ABNORMAL) Comprehensive metabolic panel (12/18/2019 5:38 AM CDT) Sodium 130(L) 135 - 145 mmol/L [facility] Potassium 3.8 3.3 - 5.1 mmol/L [facility] Chloride 98 96 - 108 mmol/L [facility] Carbon Dioxide 21(L) 22 - 32 mmol/L [facility] Anion Gap 11 7 - 16 [facility] Glucose 139(H) 70 - 100 mg/dL [facility] BUN 10 8 - 25 mg/dL [facility] Creatinine 0.6 0.5 - 1.3 mg/dL [facility] Comment: The specimen is icteric. ??A high bilirubin level is known to cause a false decrease in measured creatinine. NOTE: Estimated GFR (Cockroft-Gault) will NOT be calculated unless patient Height and Weight were entered. Also, Kidney Disease Stage (GFR) and Estimated GFR (Cockroft-Gault) will NOT be calculated if Creatinine result is <0.2. Kidney Disease Stage >90 mL/MIN [facility] Comment: NOTE; ??The GFR is an estimated [...] failure or on dialysis Est GFR (Cockcroft-G) 169 ml/MIN [facility] Comment: Estimated GFR(Cockroft-Gault)is used to calculate patient medication dosage Calcium 8.6 8.6 - 10.3 mg/dL [facility] Total Protein 7.3 6.4 - 8.3 g/dL [facility] Albumin 2.3(L) 3.5 - 5.0 g/dL [facility] Globulin 5.0(H) 2.3 - 3.5 gm/dL [facility] Albumin/Globulin Ratio 0.5(L) 1.1 - 1.8 [facility] Total Bilirubin 3.4(H) 0.0 - 1.2 mg/dL [facility] AST 89(H) 0 - 40 U/L [facility] ALT 27 0 - 41 U/L [facility] Alkaline Phosphatase 102 40 - 129 U/L [facility] 12/18/2019 5:38 AM CDT 12/18/2019 5:57 AM CDT Narrative Resulting Agency Comment IN us Sherita Moss MD LAB BLOOD ORDERABLES Final Result [facility] [address] [place] [address], [facility] [phone] * (ABNORMAL) CBC with auto differential (12/18/2019 5:38 AM CDT) WBC 5.1 3.8 - 9.9 X10 3/ul [facility] RBC 3.38(L) 4.30 - 5.80 x10 6/ul [facility] Hemoglobin 10.4(L) 13.0 - 17.5 g/dL [facility] Hct 31.4(L) 38.9 - 50.3 % [facility] MCV 92.9 81.3 - 96.4 fl [facility] MCH 30.8 27.1 - 33.3 pg [facility] MCHC 33.1 32.3 - 35.7 g/dl [facility] RDW 21.5(H) 11.1 - 14.9 % [facility] Plt Count 92(L) 150 - 400 x10 3/ul [facility] MPV 10.9 9.1 - 12.3 fl [facility] Neut % 62.2 % [facility] Immature Gran % 0.2 % [facility] Lymph % 14.6 % [facility] Roberts % 20.1 % [facility] Eos % 2.1 % [facility] AUTO BASO % 0.8 % [facility] NEUTROPHIL ABS # 3.2 1.7 - 6.5 x10 3/ul [facility] Immature Gran # 0.0 0.0 - 0.1 x10 3/ul [facility] Absolute Lymphs (auto) 0.8 0.8 - 3.3 x10 3/ul [facility] Absolute Monos (auto) 1.0(H) 0.2 - 0.8 x10 3/ul [facility] Absolute Eos (auto) 0.1 0.0 - 0.5 x10 3/ul [facility] BASOPHIL ABS # 0.0 0.0 - 0.1 x10 3/ul [facility] Nucleat RBC Rel Count 0.0 #/100WBC [facility] NRBC abs 0.00 0.00 - 0.01 x10 3/ul [facility] Absolute Neutrophils 3,200 200 - 8,000 /ul [facility] 12/18/2019 5:38 AM CDT 12/18/2019 5:57 AM CDT Narrative Resulting Agency Comment IN us Sherita Moss MD LAB BLOOD ORDERABLES Final Result Performing Organization Address City/State/[facility] Co de Phone Number [facility] [address] [phone] * XR Chest 1 View (12/18/2019 12:00 AM CDT) Anatomical Region Laterality Modality Body, Chest N/A Radiographic Lynette ging 12/18/2019 10:2 6 AM CDT Narrative 12/18/2019 10:27 AM CDT Patient Name: JARED BRUMFIELD JR ?Ordering Dr: Liborio Boswell MD ?? D.O.B: 1970 ? Exam Date: 12/18/19 ?? 0000 ?? Age: 49 ?Sex: Male ? MR#: [id number] ?? Loc: ??C254-01 ? RADIOLOGY REPORT ?? Order #[id number] ?? Radiology ? Chest 1 View Portable ? Signed ?? EXAM DESCRIPTION: ?? Chest 1 View Portable ? REASON FOR STUDY: ?? pt is more alert and awake, c/o abdomen tightness x today ? TECHNIQUE: ?? Frontal radiographic view of the chest acquired. ? COMPARISON: ?? 09/24/2018 ? FINDINGS: ? The heart, mediastinum, and pulmonary vasculature are grossly stable. ??There ?? is no definite evidence of a pneumothorax. ??There are low lung volumes. ??There ?? are patchy left basilar airspace opacities. ??There is suggestion of a small ?? left pleural effusion. ? The osseous structures are grossly stable. ? IMPRESSION: ? 1. ??Patchy left basilar airspace opacities, which is concerning for developing ?? airspace disease. ? 2. ??Suggestion of a small left pleural effusion. ? THIS IS AN ELECTRONICALLY VERIFIED FINAL REPORT ?? 12/18/2019 10:27 AM - Electronically signed by Jone Cody D.O. ?? Jone Cody D.O. ? PS ?? D: ??12/18/2019 10:27 AM ?? T: ? Report ID: [id number] ?? Reading Location: ??[id number] ? REPORT ELECTRONICALLY SIGNED IN OTHER VENDOR SYSTEM ?? Resulting Agency Comment I Procedure Note Jone Cody, - 12/18/2019 Patient Name: JARED BRUMFIELD Dr: Liborio Boswell MD DDenisODenisB: 1970 Exam Date: 12/18/19 0000 Age: 49 Sex: Male MR#: [id number] Loc: C254-01 RADIOLOGY REPORT Order #[id number] Radiology Chest 1 View Portable Signed EXAM DESCRIPTION: Chest 1 View Portable REASON FOR STUDY: pt is more alert and awake, c/o abdomen tightness xtoday TECHNIQUE: Frontal radiographic view of the chest acquired. COMPARISON: 09/24/2018 FINDINGS: The heart, mediastinum, and pulmonary vasculature are grossly stable.There is no definite evidence of a pneumothorax. There are low lung volumes.There are patchy left basilar airspace opacities. There is suggestion of asmall left pleural effusion. The osseous structures are grossly stable. IMPRESSION: 1. Patchy left basilar airspace opacities, which is concerning fordeveloping airspace disease. 2. Suggestion of a small left pleural effusion. THIS IS AN ELECTRONICALLY VERIFIED FINAL REPORT 12/18/2019 10:27 AM - Electronically signed by Jone Cody D.O. PS T: Report ID: [id number] Reading Location: [id number] REPORT ELECTRONICALLY SIGNED IN OTHER VENDOR SYSTEM us Liborio Boswell MD IMG XR PROCEDURES Final Resul t * Magnesium (12/17/2019 5:23 AM CDT) Magnesium 1.7 1.6 - 2.6 mg/dL [facility] Comment: Magnesium sulfate therapy: ??3.0-9.1 mg/dL 12/17/2019 5:23 AM CDT 12/17/2019 6:14 AM CDT Narrative Resulting Agency Comment IN Sherita Moss MD LAB BLOOD ORDERABLES Final Result [facility] [address] [place] [address], [facility] [phone] * (ABNORMAL) Comprehensive metabolic panel (12/17/2019 5:23 AM CDT) Sodium 133(L) 135 - 145 mmol/L [facility] Potassium 3.5 3.3 - 5.1 mmol/L [facility] Chloride 101 96 - 108 mmol/L [facility] Carbon Dioxide 23 22 - 32 mmol/L [facility] Anion Gap 9 7 - 16 [facility] Glucose 130(H) 70 - 100 mg/dL [facility] BUN 10 8 - 25 mg/dL [facility] Creatinine 0.6 0.5 - 1.3 mg/dL [facility] Comment: The specimen is icteric. ??A high bilirubin level is known to cause a false decrease in measured creatinine. NOTE: Estimated GFR (Cockroft-Gault) will NOT be calculated unless patient Height and Weight were entered. Also, Kidney Disease Stage (GFR) and Estimated GFR (Cockroft-Gault) will NOT be calculated if Creatinine result is <0.2. Kidney Disease Stage >90 mL/MIN [facility] Comment: NOTE; ??The GFR is an estimated [...] failure or on dialysis Est GFR (Cockcroft-G) 169 ml/MIN [facility] Comment: Estimated GFR(Cockroft-Gault)is used to calculate patient medication dosage Calcium 8.3(L) 8.6 - 10.3 mg/dL [facility] Total Protein 6.7 6.4 - 8.3 g/dL [facility] Albumin 2.0(L) 3.5 - 5.0 g/dL [facility] Globulin 4.7(H) 2.3 - 3.5 gm/dL [facility] Albumin/Globulin Ratio 0.4(L) 1.1 - 1.8 [facility] Total Bilirubin 3.6(H) 0.0 - 1.2 mg/dL [facility] AST 93(H) 0 - 40 U/L [facility] ALT 25 0 - 41 U/L [facility] Alkaline Phosphatase 100 40 - 129 U/L [facility] 12/17/2019 5:23 AM CDT 12/17/2019 6:14 AM CDT Narrative Resulting Agency Comment IN us Sherita Moss MD LAB BLOOD ORDERABLES Final Result [facility] [address] [place] [address], [facility] [phone] * (ABNORMAL) CBC with auto differential (12/17/2019 5:23 AM CDT) WBC 5.3 3.8 - 9.9 X10 3/ul [facility] RBC 3.24(L) 4.30 - 5.80 x10 6/ul [facility] Hemoglobin 10.1(L) 13.0 - 17.5 g/dL [facility] Hct 30.5(L) 38.9 - 50.3 % [facility] MCV 94.1 81.3 - 96.4 fl [facility] MCH 31.2 27.1 - 33.3 pg [facility] MCHC 33.1 32.3 - 35.7 g/dl [facility] RDW 21.4(H) 11.1 - 14.9 % [facility] Plt Count 73(L) 150 - 400 x10 3/ul [facility] MPV 11.0 9.1 - 12.3 fl [facility] Neut % 61.6 % [facility] Immature Gran % 0.4 % [facility] Lymph % 15.0 % [facility] Roberts % 20.3 % [facility] Eos % 1.9 % [facility] AUTO BASO % 0.8 % [facility] NEUTROPHIL ABS # 3.3 1.7 - 6.5 x10 3/ul [facility] Immature Gran # 0.0 0.0 - 0.1 x10 3/ul [facility] Absolute Lymphs (auto) 0.8 0.8 - 3.3 x10 3/ul [facility] Absolute Monos (auto) 1.1(H) 0.2 - 0.8 x10 3/ul [facility] Absolute Eos (auto) 0.1 0.0 - 0.5 x10 3/ul [facility] BASOPHIL ABS # 0.0 0.0 - 0.1 x10 3/ul [facility] Nucleat RBC Rel Count 0.0 #/100WBC [facility] NRBC abs 0.00 0.00 - 0.01 x10 3/ul [facility] Absolute Neutrophils 3,300 200 - 8,000 /ul [facility] 12/17/2019 5:23 AM CDT 12/17/2019 6:15 AM CDT Narrative Resulting Agency Comment IN Sherita Moss MD LAB BLOOD ORDERABLES Final Result Performing Organization Address [facility] Co de Phone Number [address] [phone] * Hemoglobin A1c (12/16/2019 6:22 AM CDT) Hemoglobin A1c % 4.5 4.0 - 5.6 % [facility] Comment: ADA 2016 GUIDELINES: ??Initial Diagnostic Criteria ? HbA1c Result: ?Interpretation: ?<5.7% ? Normal ?5.7-6.4% ?At risk for diabetes mellitus ?>=6.5% ?Consistent with diabetes mellitus ??Diabetes monitoring ? Target value (ADA Recommended) ?? <7% 12/16/2019 6:22 AM CDT 12/16/2019 7:03 AM CDT Narrative Resulting Agency Comment IN Result [facility] Sherita Moss MD LAB BLOOD ORDERABLES Final Result Performing Organization Address [facility] Co de Phone Number [address] [phone] * Magnesium (12/16/2019 6:22 AM CDT) Magnesium 1.7 1.6 - 2.6 mg/dL [facility] Comment: Magnesium sulfate therapy: ??3.0-9.1 mg/dL 12/16/2019 6:22 AM CDT 12/16/2019 7:03 AM CDT Narrative Resulting Agency Comment IN Sherita Moss MD LAB BLOOD ORDERABLES Final Result [facility] [address] [place] [address], [facility] [phone] * (ABNORMAL) Comprehensive metabolic panel (12/16/2019 6:22 AM CDT) Sodium 134(L) 135 - 145 mmol/L [facility] Potassium 3.5 3.3 - 5.1 mmol/L [facility] Chloride 103 96 - 108 mmol/L [facility] Carbon Dioxide 24 22 - 32 mmol/L [facility] Anion Gap 7 7 - 16 [facility] Glucose 117(H) 70 - 100 mg/dL [facility] BUN 8 8 - 25 mg/dL [facility] Creatinine 0.5 0.5 - 1.3 mg/dL [facility] Comment: The specimen is icteric. ??A high bilirubin level is known to cause a false decrease in measured creatinine. NOTE: Estimated GFR (Cockroft-Gault) will NOT be calculated unless patient Height and Weight were entered. Also, Kidney Disease Stage (GFR) and Estimated GFR (Cockroft-Gault) will NOT be calculated if Creatinine result is <0.2. Kidney Disease Stage >90 mL/MIN [facility] Comment: NOTE; ??The GFR is an estimated [...] failure or on dialysis Est GFR (Cockcroft-G) 202 ml/MIN [facility] Comment: Estimated GFR(Cockroft-Gault)is used to calculate patient medication dosage Calcium 8.0(L) 8.6 - 10.3 mg/dL [facility] Total Protein 6.5 6.4 - 8.3 g/dL [facility] Albumin 2.2(L) 3.5 - 5.0 g/dL [facility] Globulin 4.3(H) 2.3 - 3.5 gm/dL [facility] Albumin/Globulin Ratio 0.5(L) 1.1 - 1.8 [facility] Total Bilirubin 3.3(H) 0.0 - 1.2 mg/dL [facility] AST 117(H) 0 - 40 U/L [facility] ALT 27 0 - 41 U/L [facility] Alkaline Phosphatase 103 40 - 129 U/L [facility] 12/16/2019 6:22 AM CDT 12/16/2019 7:03 AM CDT Narrative Resulting Agency Comment IN us Sherita Moss MD LAB BLOOD ORDERABLES Final Result [facility] [address] [place], [place] [id number] [place] [address] * (ABNORMAL) Protime-INR (12/16/2019 6:22 AM CDT) PT 23.3(H) 12.2 - 14.8 SECONDS [facility] INR 1.98 [facility] Comment: Recommended Therapeutic range for Oral Anticoagulant Therapy No anti-coagulation therapy ? Normal Range: ?0.8-1.4 Anti-coagulation therapy ? Low intensity therapy ?2.0-3.0 ? High intensity therapy ?? 2.5-3.5 Critical Value ? Greater than or equal to 5.0 Patients should be monitored for serious bleeding. 12/16/2019 6:22 AM CDT 12/16/2019 7:03 AM CDT Narrative Resulting Agency Comment IN Sherita Moss MD LAB BLOOD ORDERABLES Final Result [facility] [address] [place] [address], [facility] [phone] * (ABNORMAL) CBC with auto differential (12/16/2019 6:22 AM CDT) WBC 4.2 3.8 - 9.9 X10 3/ul [facility] RBC 3.23(L) 4.30 - 5.80 x10 6/ul [facility] Hemoglobin 9.8(L) 13.0 - 17.5 g/dL [facility] Hct 29.3(L) 38.9 - 50.3 % [facility] MCV 90.7 81.3 - 96.4 fl [facility] MCH 30.3 27.1 - 33.3 pg [facility] MCHC 33.4 32.3 - 35.7 g/dl [facility] RDW 22.4(H) 11.1 - 14.9 % [facility] Plt Count 65(L) 150 - 400 x10 3/ul [facility] MPV 10.9 9.1 - 12.3 fl [facility] Neut % 62.1 % [facility] Immature Gran % 0.2 % [facility] Lymph % 16.4 % [facility] Roberts % 18.1 % [facility] Eos % 2.2 % [facility] AUTO BASO % 1.0 % [facility] NEUTROPHIL ABS # 2.6 1.7 - 6.5 x10 3/ul [facility] Immature Gran # 0.0 0.0 - 0.1 x10 3/ul [facility] Absolute Lymphs (auto) 0.7(L) 0.8 - 3.3 x10 3/ul [facility] Absolute Monos (auto) 0.8 0.2 - 0.8 x10 3/ul [facility] Absolute Eos (auto) 0.1 0.0 - 0.5 x10 3/ul [facility] BASOPHIL ABS # 0.0 0.0 - 0.1 x10 3/ul [facility] Nucleat RBC Rel Count 0.0 #/100WBC [facility] NRBC abs 0.00 0.00 - 0.01 x10 3/ul [facility] Absolute Neutrophils 2,600 200 - 8,000 /ul [facility] 12/16/2019 6:22 AM CDT 12/16/2019 7:03 AM CDT Narrative Resulting Agency Comment IN us Sherita Moss MD LAB BLOOD ORDERABLES Final Result [address] [phone] * (ABNORMAL) Bilirubin, direct (12/15/2019 4:55 AM CDT) Direct Bilirubin 1.66(H) 0.00 - 0.25 mg/dL [facility] 12/15/2019 4:55 AM CDT 12/15/2019 5:07 AM CDT Narrative Resulting Agency Comment IN Sherita Moss MD LAB BLOOD ORDERABLES Final Result [address] [phone] * (ABNORMAL) Comprehensive metabolic panel (12/15/2019 4:55 AM CDT) Sodium 136 135 - 145 mmol/L [facility] Potassium 3.3 3.3 - 5.1 mmol/L [facility] Chloride 106 96 - 108 mmol/L [facility] Carbon Dioxide 23 22 - 32 mmol/L [facility] Anion Gap 7 7 - 16 [facility] Glucose 105(H) 70 - 100 mg/dL [facility] BUN 8 8 - 25 mg/dL [facility] Creatinine 0.5 0.5 - 1.3 mg/dL [facility] Comment: The specimen is icteric. ??A high bilirubin level is known to cause a false decrease in measured creatinine. NOTE: Estimated GFR (Cockroft-Gault) will NOT be calculated unless patient Height and Weight were entered. Also, Kidney Disease Stage (GFR) and Estimated GFR (Cockroft-Gault) will NOT be calculated if Creatinine result is <0.2. Kidney Disease Stage >90 mL/MIN [facility] Comment: NOTE; ??The GFR is an estimated [...] failure or on dialysis Est GFR (Cockcroft-G) 202 ml/MIN [facility] Comment: Estimated GFR(Cockroft-Gault)is used to calculate patient medication dosage Calcium 7.5(L) 8.6 - 10.3 mg/dL [facility] Total Protein 6.0(L) 6.4 - 8.3 g/dL [facility] Albumin 1.9(L) 3.5 - 5.0 g/dL [facility] Globulin 4.1(H) 2.3 - 3.5 gm/dL [facility] Albumin/Globulin Ratio 0.5(L) 1.1 - 1.8 [facility] Total Bilirubin 2.9(H) 0.0 - 1.2 mg/dL [facility] AST 128(H) 0 - 40 U/L [facility] ALT 26 0 - 41 U/L [facility] Alkaline Phosphatase 97 40 - 129 U/L [facility] 12/15/2019 4:55 AM CDT 12/15/2019 5:07 AM CDT Narrative Resulting Agency Comment IN Sherita Moss MD LAB BLOOD ORDERABLES Final Result [facility] [address] [place] [address], [facility] [phone] * (ABNORMAL) CBC with auto differential (12/15/2019 4:55 AM CDT) WBC 3.3(L) 3.8 - 9.9 X10 3/ul [facility] RBC 3.06(L) 4.30 - 5.80 x10 6/ul [facility] Hemoglobin 9.4(L) 13.0 - 17.5 g/dL [facility] Hct 29.1(L) 38.9 - 50.3 % [facility] MCV 95.1 81.3 - 96.4 fl [facility] MCH 30.7 27.1 - 33.3 pg [facility] MCHC 32.3 32.3 - 35.7 g/dl [facility] RDW 21.4(H) 11.1 - 14.9 % [facility] Plt Count 59(L) 150 - 400 x10 3/ul [facility] MPV 11.0 9.1 - 12.3 fl [facility] Neut % 53.0 % [facility] Immature Gran % 0.3 % [facility] Lymph % 23.8 % [facility] Roberts % 18.0 % [facility] Eos % 3.7 % [facility] AUTO BASO % 1.2 % [facility] NEUTROPHIL ABS # 1.7 1.7 - 6.5 x10 3/ul [facility] Immature Gran # 0.0 0.0 - 0.1 x10 3/ul [facility] Absolute Lymphs (auto) 0.8 0.8 - 3.3 x10 3/ul [facility] Absolute Monos (auto) 0.6 0.2 - 0.8 x10 3/ul [facility] Absolute Eos (auto) 0.1 0.0 - 0.5 x10 3/ul [facility] BASOPHIL ABS # 0.0 0.0 - 0.1 x10 3/ul [facility] Nucleat RBC Rel Count 0.0 #/100WBC [facility] NRBC abs 0.00 0.00 - 0.01 x10 3/ul [facility] Absolute Neutrophils 1,700 200 - 8,000 /ul [facility] 12/15/2019 4:55 AM CDT 12/15/2019 5:07 AM CDT Narrative Resulting Agency Comment IN us Sherita Moss MD LAB BLOOD ORDERABLES Final Result [facility] [address] [place] [address], [facility] [phone] * (ABNORMAL) Bilirubin, direct (12/14/2019 6:45 AM CDT) Direct Bilirubin 2.15(H) 0.00 - 0.25 mg/dL [facility] 12/14/2019 6:45 AM CDT 12/14/2019 7:03 AM CDT Narrative Resulting Agency Comment IN Sherita Moss MD LAB BLOOD ORDERABLES Final Result [facility] [address] [phone] * (ABNORMAL) Comprehensive metabolic panel (12/14/2019 6:45 AM CDT) Pathologist [facility] Sodium 136 135 - 145 mmol/L [facility] Potassium 3.4 3.3 - 5.1 mmol/L [facility] Chloride 106 96 - 108 mmol/L [facility] Carbon Dioxide 24 22 - 32 mmol/L [facility] Anion Gap 6(L) 7 - 16 [facility] Glucose 145(H) 70 - 100 mg/dL [facility] BUN 8 8 - 25 mg/dL [facility] Creatinine 0.4(L) 0.5 - 1.3 mg/dL [facility] Comment: The specimen is icteric. ??A high bilirubin level is known to cause a false decrease in measured creatinine. NOTE: Estimated GFR (Cockroft-Gault) will NOT be calculated unless patient Height and Weight were entered. Also, Kidney Disease Stage (GFR) and Estimated GFR (Cockroft-Gault) will NOT be calculated if Creatinine result is <0.2. Kidney Disease Stage >90 mL/MIN [facility] Comment: NOTE; ??The GFR is an estimated [...] failure or on dialysis Est GFR (Cockcroft-G) 253 ml/MIN [facility] Comment: Estimated GFR(Cockroft-Gault)is used to calculate patient medication dosage Calcium 8.0(L) 8.6 - 10.3 mg/dL [facility] Total Protein 6.8 6.4 - 8.3 g/dL [facility] Albumin 2.3(L) 3.5 - 5.0 g/dL [facility] Globulin 4.5(H) 2.3 - 3.5 gm/dL [facility] Albumin/Globulin Ratio 0.5(L) 1.1 - 1.8 [facility] Total Bilirubin 3.7(H) 0.0 - 1.2 mg/dL [facility] AST 164(H) 0 - 40 U/L [facility] ALT 31 0 - 41 U/L [facility] Alkaline Phosphatase 111 40 - 129 U/L [facility] 12/14/2019 6:45 AM CDT 12/14/2019 7:03 AM CDT Narrative Resulting Agency Comment IN us Sherita Moss MD LAB BLOOD ORDERABLES Final Result [facility] [address] [phone] * Ammonia (12/14/2019 6:45 AM CDT) AMMONIA 51 9 - 85 ug/dL [facility] 12/14/2019 6:45 AM CDT 12/14/2019 7:01 AM CDT Narrative Resulting Agency Comment IN us Sherita Moss MD LAB BLOOD ORDERABLES Final Result [place] [id number] [address] [phone] * (ABNORMAL) CBC with auto differential (12/14/2019 6:45 AM CDT) WBC 3.7(L) 3.8 - 9.9 X10 3/ul [facility] RBC 3.39(L) 4.30 - 5.80 x10 6/ul [facility] Hemoglobin 10.2(L) 13.0 - 17.5 g/dL [facility] Hct 31.2(L) 38.9 - 50.3 % [facility] MCV 92.0 81.3 - 96.4 fl [facility] MCH 30.1 27.1 - 33.3 pg [facility] MCHC 32.7 32.3 - 35.7 g/dl [facility] RDW 21.9(H) 11.1 - 14.9 % [facility] Plt Count 56(L) 150 - 400 x10 3/ul [facility] MPV 9.7 9.1 - 12.3 fl [facility] Neut % 62.2 % [facility] Immature Gran % 0.3 % [facility] Lymph % 18.5 % [facility] Roberts % 15.2 % [facility] Eos % 2.7 % [facility] AUTO BASO % 1.1 % [facility] NEUTROPHIL ABS # 2.3 1.7 - 6.5 x10 3/ul [facility] Immature Gran # 0.0 0.0 - 0.1 x10 3/ul [facility] Absolute Lymphs (auto) 0.7(L) 0.8 - 3.3 x10 3/ul [facility] Absolute Monos (auto) 0.6 0.2 - 0.8 x10 3/ul [facility] Absolute Eos (auto) 0.1 0.0 - 0.5 x10 3/ul [facility] BASOPHIL ABS # 0.0 0.0 - 0.1 x10 3/ul [facility] Nucleat RBC Rel Count 0.0 #/100WBC [facility] NRBC abs 0.00 0.00 - 0.01 x10 3/ul [facility] Absolute Neutrophils 2,300 200 - 8,000 /ul [facility] 12/14/2019 6:45 AM CDT 12/14/2019 7:03 AM CDT Narrative Resulting Agency Comment IN us Sherita Moss MD LAB BLOOD ORDERABLES Final Result [address] [phone] * Magnesium (12/13/2019 5:51 AM CDT) Magnesium 1.8 1.6 - 2.6 mg/dL [facility] Comment: Magnesium sulfate therapy: ??3.0-9.1 mg/dL 12/13/2019 5:51 AM CDT 12/13/2019 6:05 AM CDT Narrative Resulting Agency Comment IN Sherita Moss MD LAB BLOOD ORDERABLES Final Result [address] [phone] * (ABNORMAL) Bilirubin, direct (12/13/2019 5:51 AM CDT) Direct Bilirubin 2.54(H) 0.00 - 0.25 mg/dL [facility] 12/13/2019 5:51 AM CDT 12/13/2019 6:05 AM CDT Narrative Resulting Agency Comment IN Sherita Moss MD LAB BLOOD ORDERABLES Final Result [facility] [address] [place] [address], [facility] [phone] * (ABNORMAL) Comprehensive metabolic panel (12/13/2019 5:51 AM CDT) Pathologist [facility] Sodium 137 135 - 145 mmol/L [facility] Potassium 3.4 3.3 - 5.1 mmol/L [facility] Chloride 105 96 - 108 mmol/L [facility] Carbon Dioxide 24 22 - 32 mmol/L [facility] Anion Gap 8 7 - 16 [facility] Glucose 103(H) 70 - 100 mg/dL [facility] BUN 9 8 - 25 mg/dL [facility] Creatinine 0.5 0.5 - 1.3 mg/dL [facility] Comment: The specimen is icteric. ??A high bilirubin level is known to cause a false decrease in measured creatinine. NOTE: Estimated GFR (Cockroft-Gault) will NOT be calculated unless patient Height and Weight were entered. Also, Kidney Disease Stage (GFR) and Estimated GFR (Cockroft-Gault) will NOT be calculated if Creatinine result is <0.2. Kidney Disease Stage >90 mL/MIN [facility] Comment: NOTE; ??The GFR is an estimated [...] failure or on dialysis Est GFR (Cockcroft-G) 202 ml/MIN [facility] Comment: Estimated GFR(Cockroft-Gault)is used to calculate patient medication dosage Calcium 7.6(L) 8.6 - 10.3 mg/dL [facility] Total Protein 6.4 6.4 - 8.3 g/dL [facility] Albumin 2.0(L) 3.5 - 5.0 g/dL [facility] Globulin 4.4(H) 2.3 - 3.5 gm/dL [facility] Albumin/Globulin Ratio 0.5(L) 1.1 - 1.8 [facility] Total Bilirubin 4.3(H) 0.0 - 1.2 mg/dL [facility] AST 154(H) 0 - 40 U/L [facility] ALT 27 0 - 41 U/L [facility] Alkaline Phosphatase 103 40 - 129 U/L [facility] 12/13/2019 5:51 AM CDT 12/13/2019 6:05 AM CDT Narrative Resulting Agency Comment IN us Sherita Moss MD LAB BLOOD ORDERABLES Final Result [facility] [address] [place] [address], [facility] [phone] * (ABNORMAL) Ammonia (12/13/2019 5:51 AM CDT) AMMONIA 96(H) 9 - 85 ug/dL [facility] 12/13/2019 5:51 AM CDT 12/13/2019 6:05 AM CDT Narrative Resulting Agency Comment IN Sherita Moss MD LAB BLOOD ORDERABLES Final Result [facility] [address] [phone] * (ABNORMAL) CBC with auto differential (12/13/2019 5:51 AM CDT) WBC 4.3 3.8 - 9.9 X10 3/ul [facility] Comment: Results reviewed RBC 2.92(L) 4.30 - 5.80 x10 6/ul [facility] Hemoglobin 8.7(L) 13.0 - 17.5 g/dL [facility] Hct 26.8(L) 38.9 - 50.3 % [facility] MCV 91.8 81.3 - 96.4 fl [facility] MCH 29.8 27.1 - 33.3 pg [facility] MCHC 32.5 32.3 - 35.7 g/dl [facility] RDW 21.9(H) 11.1 - 14.9 % [facility] Plt Count 54(L) 150 - 400 x10 3/ul [facility] MPV 9.8 9.1 - 12.3 fl [facility] Neut % 65.5 % [facility] Immature Gran % 0.2 % [facility] Lymph % 14.8 % [facility] Roberts % 16.5 % [facility] Eos % 2.1 % [facility] AUTO BASO % 0.9 % [facility] NEUTROPHIL ABS # 2.8 1.7 - 6.5 x10 3/ul [facility] Immature Gran # 0.0 0.0 - 0.1 x10 3/ul [facility] Absolute Lymphs (auto) 0.6(L) 0.8 - 3.3 x10 3/ul [facility] Absolute Monos (auto) 0.7 0.2 - 0.8 x10 3/ul [facility] Absolute Eos (auto) 0.1 0.0 - 0.5 x10 3/ul [facility] BASOPHIL ABS # 0.0 0.0 - 0.1 x10 3/ul [facility] Nucleat RBC Rel Count 0.0 #/100WBC [facility] NRBC abs 0.00 0.00 - 0.01 x10 3/ul [facility] Absolute Neutrophils 2,800 200 - 8,000 /ul [facility] 12/13/2019 5:51 AM CDT 12/13/2019 6:05 AM CDT Narrative Resulting Agency Comment IN us Sherita Moss MD LAB BLOOD ORDERABLES Final Result [facility] [address] [place] [address], [facility] [phone] * (ABNORMAL) Protime-INR (12/13/2019 5:51 AM CDT) PT 26.9(H) 12.2 - 14.8 SECONDS [facility] INR 2.38 [facility] Comment: Recommended Therapeutic range for Oral Anticoagulant Therapy No anti-coagulation therapy ? Normal Range: ?0.8-1.4 Anti-coagulation therapy ? Low intensity therapy ?2.0-3.0 ? High intensity therapy ?? 2.5-3.5 Critical Value ? Greater than or equal to 5.0 Patients should be monitored for serious bleeding. 12/13/2019 5:51 AM CDT 12/13/2019 6:05 AM CDT Narrative Resulting Agency Comment IN us Sherita Moss MD LAB BLOOD ORDERABLES Final Result Performing Organization Address City/[facility]/ZIP Co de Phone Number [address] [phone] * Ammonia (12/12/2019 7:01 AM CDT) AMMONIA 50 9 - 85 ug/dL [facility] 12/12/2019 7:01 AM CDT 12/12/2019 7:08 AM CDT Narrative Resulting Agency Comment IN us Meir Irving MD LAB BLOOD ORDERABLES Final Result Performing Organization Address [facility] Co de Phone Number [address] [phone] * (ABNORMAL) TSH+Free T4 (12/12/2019 5:29 AM CDT) TSH 5.850(H) 0.27 - 4.20 uIU/mL [facility] Free T4 0.87(L) 0.93 - 1.70 ng/dL [facility] 12/12/2019 5:29 AM CDT 12/12/2019 5:37 AM CDT Narrative Resulting Agency Comment IN us Bibi Crews DO LAB BLOOD ORDERABLES Final Re sult Performing Organization Address City/[facility]/ZIP Co de Phone Number [address] [phone] * (ABNORMAL) Vitamin D 25 hydroxy (12/12/2019 5:29 AM CDT) 25-OH Vitamin D Total 23(L) 30 - 80 ng/mL [facility] 12/12/2019 5:29 AM CDT 12/12/2019 5:37 AM CDT Narrative Resulting Agency Comment IN us Bibi Crews DO LAB BLOOD ORDERABLES Final Re sult [place] [id number] [place] [address], [facility] [phone] * (ABNORMAL) Vitamin B12 and Folate (12/12/2019 5:29 AM CDT) Vitamin B12 1,769(H) 230 - 1,250 pg/mL [facility] Folate 10.3 ng/mL [facility] Comment: Reference Range ??> 5.0 ng/mL Folate has been standardized against the WHO International Standard [facility] code: 03/178 12/12/2019 5:29 AM CDT 12/12/2019 5:37 AM CDT Narrative Resulting Agency Comment IN us Bibi Crews DO LAB BLOOD ORDERABLES Final Re sult Performing Organization Address [facility]/ZIP [place] [address], [facility] [phone] * (ABNORMAL) Iron profile w/ IBC (12/12/2019 5:29 AM CDT) Iron 68 59 - 158 ug/dL [facility] TIBC 149(L) 228 - 428 ug/dL [facility] Transferrin % Sat 46 20 - 50 % [facility] 12/12/2019 5:29 AM CDT 12/12/2019 5:37 AM CDT Narrative Resulting Agency Comment IN Bibi Crews DO LAB BLOOD ORDERABLES Final Re sult [place] [id number] [address] [phone] * Phosphorus (12/12/2019 5:29 AM CDT) Pathologist [facility] Phosphorus 2.5 2.3 - 4.5 mg/dL [facility] Comment: Results reviewed 12/12/2019 5:29 AM CDT 12/12/2019 5:37 AM CDT Narrative Resulting Agency Comment IN Bibi Crews DO LAB BLOOD ORDERABLES Final Re sult Performing Organization Address [facility]/ZIP Co de Phone Number [address] [phone] * (ABNORMAL) Magnesium (12/12/2019 5:29 AM CDT) Pathologist [facility] Magnesium 1.5(L) 1.6 - 2.6 mg/dL [facility] Comment: Magnesium sulfate therapy: ??3.0-9.1 mg/dL 12/12/2019 5:29 AM CDT 12/12/2019 5:37 AM CDT Narrative Resulting Agency Comment IN Bibi Crews DO LAB BLOOD ORDERABLES Final Re sult Performing Organization Address [facility]/ZIP Co de Phone Number [address] [phone] * (ABNORMAL) Basic metabolic panel (12/12/2019 5:29 AM CDT) Pathologist [facility] Sodium 138 135 - 145 mmol/L [facility] Potassium 3.5 3.3 - 5.1 mmol/L [facility] Chloride 102 96 - 108 mmol/L [facility] Carbon Dioxide 27 22 - 32 mmol/L [facility] Anion Gap 9 7 - 16 [facility] Glucose 118(H) 70 - 100 mg/dL [facility] BUN 7(L) 8 - 25 mg/dL [facility] Creatinine 0.4(L) 0.5 - 1.3 mg/dL [facility] Comment: The specimen is icteric. ??A high bilirubin level is known to cause a false decrease in measured creatinine. NOTE: Estimated GFR (Cockroft-Gault) will NOT be calculated unless patient Height and Weight were entered. Also, Kidney Disease Stage (GFR) and Estimated GFR (Cockroft-Gault) will NOT be calculated if Creatinine result is <0.2. Kidney Disease Stage >90 mL/MIN [facility] Comment: NOTE; ??The GFR is an estimated [...] failure or on dialysis Est GFR (Cockcroft-G) 253 ml/MIN [facility] Comment: Estimated GFR(Cockroft-Gault)is used to calculate patient medication dosage Calcium 8.1(L) 8.6 - 10.3 mg/dL [facility] 12/12/2019 5:29 AM CDT 12/12/2019 5:37 AM CDT Narrative Resulting Agency Comment IN us Bibi Crews DO LAB BLOOD ORDERABLES Final Re sult [facility] [address] [phone] * Lipase (12/12/2019 5:29 AM CDT) Lipase 46 13 - 60 U/L [facility] 12/12/2019 5:29 AM CDT 12/12/2019 5:37 AM CDT Narrative Resulting Agency Comment IN Bibi Crews DO LAB BLOOD ORDERABLES Final Re sult [address] [phone] * (ABNORMAL) Ammonia (12/11/2019 11:24 AM CDT) AMMONIA 239(H) 9 - 85 ug/dL [facility] 12/11/2019 11:2 4 AM CDT 12/11/2019 11:28 AM CDT Narrative Resulting Agency Comment IN Bibi Crews DO LAB BLOOD ORDERABLES Final Re sult Performing Organization Address [facility] Co de Phone Number [address] [phone] * (ABNORMAL) Phosphorus (12/11/2019 5:34 AM CDT) Phosphorus 1.5(L) 2.3 - 4.5 mg/dL [facility] Comment: Results reviewed 12/11/2019 5:34 AM CDT 12/11/2019 5:57 AM CDT Narrative Resulting Agency Comment IN Bibi Alexandria Crews LAB BLOOD ORDERABLES Final Re sult Performing Organization Address City/[facility]/ZIP Co de Phone Number [address] [phone] * (ABNORMAL) Magnesium (12/11/2019 5:34 AM CDT) Magnesium 1.4(L) 1.6 - 2.6 mg/dL [facility] Comment: Magnesium sulfate therapy: ??3.0-9.1 mg/dL 12/11/2019 5:34 AM CDT 12/11/2019 5:57 AM CDT Narrative Resulting Agency Comment IN us Bibi Crews DO LAB BLOOD ORDERABLES Final Re sult [facility] [address] [place] [address], [facility] [phone] * (ABNORMAL) Comprehensive metabolic panel (12/11/2019 5:34 AM CDT) Sodium 131(L) 135 - 145 mmol/L [facility] Potassium 3.7 3.3 - 5.1 mmol/L [facility] Chloride 97 96 - 108 mmol/L [facility] Carbon Dioxide 24 22 - 32 mmol/L [facility] Anion Gap 10 7 - 16 [facility] Glucose 137(H) 70 - 100 mg/dL [facility] BUN 7(L) 8 - 25 mg/dL [facility] Creatinine 0.6 0.5 - 1.3 mg/dL [facility] Comment: Results reviewed The specimen is icteric. ??A high bilirubin level is known to cause a false decrease in measured creatinine. NOTE: Estimated GFR (Cockroft-Gault) will NOT be calculated unless patient Height and Weight were entered. Also, Kidney Disease Stage (GFR) and Estimated GFR (Cockroft-Gault) will NOT be calculated if Creatinine result is <0.2. Kidney Disease Stage >90 mL/MIN [facility] Comment: NOTE; ??The GFR is an estimated [...] failure or on dialysis Est GFR (Cockcroft-G) 169 ml/MIN [facility] Comment: Estimated GFR(Cockroft-Gault)is used to calculate patient medication dosage Calcium 8.2(L) 8.6 - 10.3 mg/dL [facility] Total Protein 6.8 6.4 - 8.3 g/dL [facility] Albumin 2.2(L) 3.5 - 5.0 g/dL [facility] Globulin 4.6(H) 2.3 - 3.5 gm/dL [facility] Albumin/Globulin Ratio 0.5(L) 1.1 - 1.8 [facility] Total Bilirubin 5.0(H) 0.0 - 1.2 mg/dL [facility] AST 137(H) 0 - 40 U/L [facility] ALT 24 0 - 41 U/L [facility] Alkaline Phosphatase 126 40 - 129 U/L [facility] 12/11/2019 5:34 AM CDT 12/11/2019 5:57 AM CDT Narrative Resulting Agency Comment IN us Bibi Crews DO LAB BLOOD ORDERABLES Final Re sult [facility] [address] [place] [id number] [place] [address] * (ABNORMAL) CBC with auto differential (12/11/2019 5:34 AM CDT) WBC 3.2(L) 3.8 - 9.9 X10 3/ul [facility] Comment: Results reviewed RBC 3.07(L) 4.30 - 5.80 x10 6/ul [facility] Hemoglobin 9.1(L) 13.0 - 17.5 g/dL [facility] Hct 28.3(L) 38.9 - 50.3 % [facility] MCV 92.2 81.3 - 96.4 fl [facility] MCH 29.6 27.1 - 33.3 pg [facility] MCHC 32.2(L) 32.3 - 35.7 g/dl [facility] RDW 18.8(H) 11.1 - 14.9 % [facility] Plt Count 43(L) 150 - 400 x10 3/ul [facility] MPV 9.6 9.1 - 12.3 fl [facility] Neut % 63.9 % [facility] Immature Gran % 0.3 % ABEL RIAL [facility] Lymph % 21.2 % [facility] Roberts % 12.1 % [facility] Eos % 1.6 % [facility] AUTO BASO % 0.9 % [facility] NEUTROPHIL ABS # 2.1 1.7 - 6.5 x10 3/ul [facility] Immature Gran # 0.0 0.0 - 0.1 x10 3/ul [facility] Absolute Lymphs (auto) 0.7(L) 0.8 - 3.3 x10 3/ul [facility] Absolute Monos (auto) 0.4 0.2 - 0.8 x10 3/ul [facility] Absolute Eos (auto) 0.1 0.0 - 0.5 x10 3/ul [facility] BASOPHIL ABS # 0.0 0.0 - 0.1 x10 3/ul [facility] Nucleat RBC Rel Count 0.0 #/100WBC [facility] NRBC abs 0.00 0.00 - 0.01 x10 3/ul [facility] Absolute Neutrophils 2,100 200 - 8,000 /ul [facility] 12/11/2019 5:34 AM CDT 12/11/2019 5:57 AM CDT Narrative Resulting Agency Comment IN Bibi Crews DO LAB BLOOD ORDERABLES Final Re sult Performing Organization Address [facility]/ZIP Co de Phone Number [address] [phone] * Anaerobic culture Fluid Ascites (12/10/2019 1:10 PM CDT) CULTURE ANAEROBIC NO ANAEROBIC GROWTH DAY 5 [facility] Fluid (Ascites) 12/10/2019 1 :10 PM CDT 12/10/2019 1:14 PM CDT [facility] - 12/15/2019 9:15 AM CDT Container ?? Not specified Specimen Type Peritoneal fluid: ??1200CC CLOUDY ORGANGE/RED Resulting Agency Comment Container ? Not specified ??Specimen Type Peritoneal fluid: ??1200CC CLOUDY ORGANGE/RED ? Bibi Crews DO LAB MICROBIOLOGY - GENERAL OR DERABLES Final Result [address] [phone] * Body Fluid Culture (12/10/2019 1:10 PM CDT) CULTURE BODY FLUID NO GROWTH AFTER 3 DAYS [facility] Fluid (Ascites) 12/10/2019 1 :10 PM CDT 12/10/2019 1:14 PM CDT Narrative [facility] - 12/15/2019 9:15 AM CDT Container ?? Not specified Specimen Type Peritoneal fluid: ??1200CC CLOUDY ORGANGE/RED Resulting Agency Comment Container ? Not specified ??Specimen Type Peritoneal fluid: ??1200CC CLOUDY ORGANGE/RED ? Bibi Crews DO LAB BLOOD ORDERABLES Final Re sult Performing Organization Address [facility] Co de Phone Number [address] [phone] * Gram stain Fluid Ascites (12/10/2019 1:10 PM CDT) GRAM STAIN MANY RBC MODERATE WBC NO ORGANISMS SEEN [facility] Fluid (Ascites) 12/10/2019 1 :10 PM CDT 12/10/2019 1:14 PM CDT [facility] - 12/15/2019 9:15 AM CDT Container ?? Not specified Specimen Type Peritoneal fluid: ??1200CC CLOUDY ORGANGE/RED Resulting Agency Comment Container ? Not specified ??Specimen Type Peritoneal fluid: ??1200CC CLOUDY ORGANGE/RED ? Bibi Crews DO LAB MICROBIOLOGY - GENERAL OR DERABLES Final Result Performing Organization Address [facility] de Phone Number [address] [phone] * Cytology (12/10/2019 1:10 PM CDT) CYTOLOGY, NON SUPERVISOR OF GUIDANCE AND TESTING [id number] [facility] Comment: Specimen received and submitted to Histology. Please refer to Pathology report for results. 12/10/2019 1:10 PM CDT 12/10/2019 1:14 PM CDT [facility] - 12/11/2019 12:00 AM CDT Specimen Type Peritoneal fluid: ??1200CC CLOUDY ORGANGE/RED alcoholic, HCV ascites [id number] Resulting Agency Comment IN Bibi Crews DO LAB CYTOLOGY ORDERABLES Final Result Performing Organization Address [facility] Co de Phone Number [address] [phone] * Cell Count, Body Fluid (12/10/2019 1:10 PM CDT) Pathologist [facility] Fluid Source PERITONEAL FLUID [facility] Fluid Type PERITONEAL [facility] Fluid Color ORANGE [facility] Fluid Appearance CLOUDY [facility] Fluid Volume 1,200.00 mls [facility] Fluid RBC 6,000 /ul [facility] Fluid WBC 46 /ul [facility] Fluid Macrophages 183 /ul [facility] Fld Mesothelial Cells 74 /ul [facility] Fluid Neutrophils % 12 % [facility] Fluid Lymphocytes % 37 % [facility] Fluid Monocytes % 51 % [facility] 12/10/2019 1:10 PM CDT 12/10/2019 1:14 PM CDT Narrative [facility] - 12/10/2019 2:25 PM CDT Specimen Type Peritoneal fluid: ??1200CC CLOUDY ORGANGE/RED PERITONEAL Resulting Agency Comment IN Bibi Crews DO LAB BODY FLUIDS AND STOOLS OR DERABLES Final Result Performing Organization Address [facility] Co de Phone Number [address] [phone] * Hepatitis C RNA, Quantitative, NAAT (12/10/2019 10:59 AM CDT) Pathologist [facility] HCV RNA IU/mL Not Detected IU/mL [facility] HCV RNA log IU/mL Not Detected log IU/mL [facility] HCV quant by NAAT interp Not Detected Not Detected [facility] Comment: INTERPRETIVE INFORMATION: HCV by Quantitative NAAT Normal range for this assay is Not Detected . The quantitative range of this assay is 10 - 100,000,000 IU/mL (1.0 - 8.0 log IU/mL). Lower limit of quantitation (LLoQ): 10 IU/mL (1.0 log IU/mL) LLoQ values do not apply to diluted specimens. A result of Not Detected does not rule out the presence of inhibitors in the patient specimen or hepatitis C virus RNA concentrations below the level of detection of the test. Care should be taken when interpreting any single viral load determination. This test should not be used for blood donor screening, associated re-entry protocols, or for screening Human Cell, Tissues and Cellular Tissue-Based Products (HCT/P). Performed by [facility], [address] [place] [address] [email or web address], William Corado MD, Lab. Director 12/10/2019 10:5 9 AM CDT 12/10/2019 11:44 AM CDT Narrative Resulting Agency Comment IN Meir Irving MD LAB BLOOD ORDERABLES Final Result Performing Organization Address [facility] Co ny Phone Number [employer] [address] [place] [address], [facility] [phone] * ECG 12 lead (12/10/2019 8:58 AM CDT) Ventricular Rate EKG/Min 95 BPM ER RADIOLOGY Atrial Rate 95 BPM ER RADIOLOGY ME-Interval (MSEC) 156 ms [facility] QRS-Interval (MSEC) 88 ms [facility] QT-Interval (MSEC) 398 ms ER RADIOLOGY QTc 500 ms ER RADIOLOGY P [place] 60 degrees ER RADIOLOGY R [place] 27 degrees ER RADIOLOGY T [place] 9 degrees ER RADIOLOGY Diagnosis Sinus rhythm Occasional Premature ventricular complexes Possible Left atrial enlargement Prolonged QT Abnormal ECG When compared with ECG of 08-MAR-2018 06:36, Premature ventricular complexes are now Present ER RADIOLOGY 12/10/2019 8:58 AM CDT 12/10/2019 1:22 PM CDT Narrative Resulting Agency Comment INPAT Meir Irving MD ECG ORDERABLES Final Result ER RADIOLOGY * (ABNORMAL) CBC with auto differential (12/10/2019 7:56 AM CDT) WBC 5.1 3.8 - 9.9 X10 3/ul [facility] RBC 3.22(L) 4.30 - 5.80 x10 6/ul [facility] Hemoglobin 9.6(L) 13.0 - 17.5 g/dL [facility] Hct 29.1(L) 38.9 - 50.3 % [facility] MCV 90.4 81.3 - 96.4 fl [facility] MCH 29.8 27.1 - 33.3 pg [facility] MCHC 33.0 32.3 - 35.7 g/dl [facility] RDW 20.0(H) 11.1 - 14.9 % [facility] Plt Count 57(L) 150 - 400 x10 3/ul [facility] MPV 10.6 9.1 - 12.3 fl [facility] Neut % 66.8 % [facility] Immature Gran % 0.4 % [facility]EL RIAL [facility] Lymph % 15.5 % [facility] Roberts % 13.9 % [facility] Eos % 1.6 % [facility] AUTO BASO % 1.8 % [facility] NEUTROPHIL ABS # 3.4 1.7 - 6.5 x10 3/ul [facility] Immature Gran # 0.0 0.0 - 0.1 x10 3/ul [facility] Absolute Lymphs (auto) 0.8 0.8 - 3.3 x10 3/ul [facility] Absolute Monos (auto) 0.7 0.2 - 0.8 x10 3/ul [facility] Absolute Eos (auto) 0.1 0.0 - 0.5 x10 3/ul [facility] BASOPHIL ABS # 0.1 0.0 - 0.1 x10 3/ul [facility] Nucleat RBC Rel Count 0.0 #/100WBC [facility] NRBC abs 0.00 0.00 - 0.01 x10 3/ul [facility] Absolute Neutrophils 3,400 200 - 8,000 /ul [facility] 12/10/2019 7:56 AM CDT 12/10/2019 8:22 AM CDT Narrative [facility] - 12/10/2019 8:28 AM CDT redraw;specimen clotted/fibrin strands present Resulting Agency Comment IN us Meir Irving MD LAB BLOOD ORDERABLES Final Result [facility] [address] [place] [address], [facility] [phone] * (ABNORMAL) Hepatitis panel, acute (12/10/2019 5:41 AM CDT) HepBsAg NONREACT NONREACTIVE [facility] Comment: Siemens CentaurXP using CHRISTOPHER (chemiluminescent immunoassay) technology. NONREACTIVE: IgM antibodies to Hepatitis B Surface antigen not detected. REACTIVE: IgM antibodies to Hepatitis B Surface antigen detected. Reactive results will be confirmed by neutralization testing. HBsAb qn 10.95 mIU/mL [facility] Comment: Siemens CentaurXP using CHRISTOPHER (chemiluminescent immunoassay) technology. 9.99 IU/L or less.....NONREACTIVE: IgM antibodies to Hepatitis B Surface antibody are not detected. 10.00 IU/L or greater..REACTIVE: IgM antibodies to Hepatitis B Surface antibody are detected. Hep B core IgM NONREACT NONREACTIVE [facility] Comment: Siemens CentaurXP using CHRISTOPHER (chemiluminescent immunoassay) technology. NONREACTIVE: IgM antibodies to Hepatitis B Core antigen not detected. EQUIVOCAL: IgM antibodies to Hepatitis B Core antigen may or may not be present. Obtain a ??new specimen and retest. REACTIVE: IgM antibodies to Hepatitis B Core antigen detected. Hep A IgM NONREACT NONREACTIVE [facility] Comment: Siemens CentaurXP using CHRISTOPHER (chemiluminescent immunoassay) technology. NONREACTIVE: IgM antibodies to Hepatitis A not detected. This does not exclude possibility of exposure to Hepatitis A or early acute infection. EQUIVOCAL:IgM antibodies to Hepatitis A may or may not be present. Suggest recollection and retest. REACTIVE: Antibodies to Hepatitis A detected. Hep C Ab REACTIVE(A) NONREACTIVE [facility] Comment: Sample to be confirmed by HCV quantitative NAAT. Siemens KeraNeticsaurXP using CHRISTOPHER (chemiluminescent immunoassay) technology. NONREACTIVE: Antibodies [...] IN Meir Irving MD LAB MICROBIOLOGY - NERAL ORDERABLES Final Result [address] [phone] * Phosphorus (12/10/2019 5:41 AM CDT) Phosphorus 3.3 2.3 - 4.5 mg/dL [facility] 12/10/2019 5:41 AM CDT 12/10/2019 6:10 AM CDT Narrative Resulting Agency Comment IN Meir Irving MD LAB BLOOD ORDERABLES [place] [address], [facility] [phone] * Magnesium (12/10/2019 5:41 AM CDT) Magnesium 1.6 1.6 - 2.6 mg/dL [facility] Comment: Magnesium sulfate therapy: ??3.0-9.1 mg/dL 12/10/2019 5:41 AM CDT 12/10/2019 6:10 AM CDT Narrative Resulting Agency Comment IN us Meir Irving MD LAB BLOOD ORDERABLES Final Result [facility] [address] [place] [address], [facility] [phone] * (ABNORMAL) Comprehensive metabolic panel (12/10/2019 5:41 AM CDT) Sodium 136 135 - 145 mmol/L [facility] Potassium 3.9 3.3 - 5.1 mmol/L [facility] Chloride 101 96 - 108 mmol/L [facility] Carbon Dioxide 22 22 - 32 mmol/L [facility] Anion Gap 13 7 - 16 [facility] Glucose 72 70 - 100 mg/dL [facility] BUN 6(L) 8 - 25 mg/dL [facility] Creatinine 0.3(L) 0.5 - 1.3 mg/dL [facility] Comment: The specimen is icteric. ??A high bilirubin level is known to cause a false decrease in measured creatinine. NOTE: Estimated GFR (Cockroft-Gault) will NOT be calculated unless patient Height and Weight were entered. Also, Kidney Disease Stage (GFR) and Estimated GFR (Cockroft-Gault) will NOT be calculated if Creatinine result is <0.2. Kidney Disease Stage >90 mL/MIN [facility] Comment: NOTE; ??The GFR is an estimated [...] failure or on dialysis Est GFR (Cockcroft-G) 337 ml/MIN [facility] Comment: Estimated GFR(Cockroft-Gault)is used to calculate patient medication dosage Calcium 7.6(L) 8.6 - 10.3 mg/dL [facility] Total Protein 7.2 6.4 - 8.3 g/dL [facility] Albumin 2.5(L) 3.5 - 5.0 g/dL [facility] Globulin 4.7(H) 2.3 - 3.5 gm/dL [facility] Albumin/Globulin Ratio 0.5(L) 1.1 - 1.8 [facility] Total Bilirubin 5.2(H) 0.0 - 1.2 mg/dL [facility] AST 160(H) 0 - 40 U/L [facility] Comment: SLIGHTLY TO MODERATELY HEMOLYZED: Hemolysis interferes with the above test. ALT 26 0 - 41 U/L [facility] Alkaline Phosphatase 136(H) 40 - 129 U/L [facility] 12/10/2019 5:41 AM CDT 12/10/2019 6:10 AM CDT Narrative Resulting Agency Comment IN us Meir Irving MD LAB BLOOD ORDERABLES Final Result [facility] [address] [place] [address], [facility] [phone] * Drugs of Abuse Screen, Urine without Confirmation (12/10/2019 1:50 AM CDT) Amphetamines NOT DETECTED [facility] Comment: This assay uses 500 ng/mL as a cutoff for a positive result. Barbiturates NOT DETECTED [facility] Comment: This assay uses 200 ng/mL as a cutoff for a positive result. Urine Fentanyl NOT DETECTED [facility] Comment: This assay uses 1 ng/mL as a cutoff for a positive result. Benzodiazepines NOT DETECTED [facility] Comment: This assay uses 100 ng/mL as a cutoff for a positive result. Cannabinoids DETECTED [facility] Comment: This assay uses 50 ng/mL as a cutoff for a positive result. Cocaine NOT DETECTED [facility] Comment: This assay uses 150 ng/mL as a cutoff for a positive result. Opiates DETECTED [facility] Comment: This assay uses 300 ng/mL as a cutoff for a positive result. Urine methadone NOT DETECTED [facility] Comment: This assay uses 300 ng/mL as a cutoff for a positive result. Urine phencyclidine plus NOT DETECTED [facility] Comment: This assay uses 25 ng/mL as a cutoff for a positive result. Oxycodone NOT DETECTED [facility] Comment: This assay uses 100 ng/mL as a cutoff for a positive result. Urine Creatinine/GERMAN 126.0 mg/dL [facility] Comment: If Creatinine is < 40 mg/dL, recollection is suggested. 12/10/2019 1:50 AM CDT 12/10/2019 2:28 AM CDT Narrative [facility] - 12/10/2019 2:58 AM CDT Collected By [facility] Agency Comment IN us Meir Irving MD LAB URINE ORDERABLES Final Result [facility] [address] [place] [address], [facility] [phone] * (ABNORMAL) URINALYSIS, COMPLETE W/REFLEX TO CULTURE (12/10/2019 1:50 AM CDT) Pathologist [facility] Ur Collection Type CLEAN CATCH [facility] Ur Culture Indicated? C S NOT INDICATED [facility] Urine Color AMANDA YELLOW [facility] Urine Clarity [facility]AR [facility] Urine Glucose (UA) NORMAL NORMAL mg/dL [facility] Urine Bilirubin 2.0(A) NEGATIVE mg/dl [facility] Urine Ictotest POSITIVE(A) NEGATIVE [facility] Comment: Urine Bilirubin result confirmed with Ictotest. Urine Ketones 5(A) NEGATIVE mg/dL [facility] Ur Specific Douglas >1.060(H) 1.005 - 1.025 [facility] Urine Blood 0.2(A) NEGATIVE mg/dl [facility] Urine pH 6.0 5.0 - 8.0 [facility] Urine Protein NEGATIVE NEGATIVE mg/dL [facility] Urine Urobilinogen 4(A) NORMAL mg/dL [facility] Urine Nitrite NEGATIVE NEGATIVE [facility] Ur Leukocyte Esterase NEGATIVE NEGATIVE Jimmy/ul [facility] Ur Microscopic Review Indicated or Ordered [facility] Urine RBC 12 0 - 2 /HPF [facility] Urine WBC 3 0 - 2 /HPF [facility] Urine Mucus RARE /LPF [facility] 12/10/2019 1:50 AM CDT 12/10/2019 2:28 AM CDT Narrative [facility] - 12/10/2019 2:52 AM CDT Indication(s) for ordering ?? Pain-pelv/flank/suprapubc kh Clean catch Resulting Agency Comment ER us Freedom GARCIA LAB URINE ORDERABLES Final Result [facility] [address] [place] [address], [facility] [phone] * (ABNORMAL) aPTT (12/10/2019 1:26 AM CDT) APTT 45(H) 27 - 36 SECONDS [facility] 12/10/2019 1:26 AM CDT 12/10/2019 1:30 AM CDT Narrative [facility] - 12/10/2019 1:44 AM CDT Could not be done as an add on Resulting Agency Comment ER Kenyon Mei MD LAB BLOOD ORDERABLES Final Result Performing Organization Address City/[facility]/ZIP Co de Phone Number [address] [phone] * (ABNORMAL) Protime-INR (12/10/2019 1:26 AM CDT) PT 22.3(H) 12.2 - 14.8 SECONDS [facility] INR 1.88 [facility] Comment: Recommended Therapeutic range for Oral Anticoagulant Therapy No anti-coagulation therapy ? Normal Range: ?0.8-1.4 Anti-coagulation therapy ? Low intensity therapy ?2.0-3.0 ? High intensity therapy ?? 2.5-3.5 Critical Value ? Greater than or equal to 5.0 Patients should be monitored for serious bleeding. 12/10/2019 1:26 AM CDT 12/10/2019 1:30 AM CDT Narrative [facility] - 12/10/2019 1:44 AM CDT Could not be done as an add on Resulting Agency Comment ER Kenyon Mei MD LAB BLOOD ORDERABLES Final Result Performing Organization Address City/[facility]/ZIP Co de Phone Number [address] [phone] * US Guided Paracentesis (12/10/2019 12:00 AM CDT) Anatomical Region Laterality Modality Abdomen N/A Ultrasound 12/10/2019 1:17 PM CDT Narrative 12/10/2019 1:18 PM CDT Patient Name: JARED BRUMFIELD JR ?Ordering Dr: Bibi Crews DO ?? D.O.B: 1970 ? Exam Date: 12/10/19 ?? 0000 ?? Age: 49 ?Sex: Male ? MR#: [id number] ?? Loc: ??C254-01 ? RADIOLOGY REPORT ?? Order #[id number] ?? Ultrasound ? US Guided Paracentesis in US ? Signed ?? EXAM DESCRIPTION: ?? US Guided Paracentesis in US ? HISTORY: ?? Abdominal ascites, initially diagnosed on CT abdomen/pelvis dated ?? 12/09/2019. Ultrasound-guided paracentesis is requested. ? COMPARISON: ?? CT abdomen/pelvis 12/09/2019 ? TECHNIQUE/FINDINGS: ? Pertinent imaging studies were reviewed including CT abdomen/pelvis ?? 12/09/2019. ??Immediately prior to the procedure, the healthcare team performed ?? the safety pause and verbally confirmed that the patient, the planned ?? procedure, the site and side were accurate. ? Pre-procedure sonographic scanning demonstrated the largest pocket of ascites ?? in the right lower quadrant. ??The skin was prepped and draped. ??Local ?? anesthesia was used with 1% lidocaine, including subcutaneous and deeper ?? tissues. ??Under ultrasound guidance, a 5-Portuguese 7 cm One Step Centesis ?? catheter was used to drain 3.0 liters of serosanguineous fluid from the right ?? lower quadrant. ??Needle placement was documented with sonographic [...] ml ? IMPRESSION: ?? Successful ultrasound-guided paracentesis. 3.0 liters of ?? serosanguineous fluid were removed and sent to laboratory for further testing, ?? which is pending. ? THIS IS AN ELECTRONICALLY VERIFIED FINAL REPORT ?? 12/10/2019 1:18 PM - Electronically signed by Nilson Son M.D. ?? Nilson Son M.D. ? CN ?? D: ??12/10/2019 1:18 PM ?? T: ? Report ID: [id number] ?? Reading Location: ??[id number] ? REPORT ELECTRONICALLY SIGNED IN OTHER VENDOR SYSTEM ?? Resulting Agency Comment I Procedure Note Nilson Son MD - 12/10/2019 Patient Name: JARED BRUMFIELD Dr: Bibi Crews DO, D.O.B: 1970 Exam Date: 12/10/19 0000 Age: 49 Sex: Male MR#: [id number] Loc: C254-01 RADIOLOGY REPORT Order #[id number] Ultrasound US Guided Paracentesis in US Signed EXAM DESCRIPTION: US Guided Paracentesis in US HISTORY: Abdominal ascites, initially diagnosed on CT abdomen/pelvisdated 12/09/2019. Ultrasound-guided paracentesis is requested. COMPARISON: CT abdomen/pelvis 12/09/2019 TECHNIQUE/FINDINGS: Pertinent imaging studies were reviewed including CT abdomen/pelvis 12/09/2019. Immediately prior to the procedure, the healthcare teamperformed the safety pause and verbally confirmed that the patient, the planned procedure, the site and side were accurate. Pre-procedure sonographic scanning demonstrated the largest pocket ofascites in the right lower quadrant. The skin was prepped and draped. Local anesthesia was used with 1% lidocaine, including subcutaneous and deeper tissues. Under ultrasound guidance, a 5-Portuguese 7 cm One Step Centesis catheter was used to drain 3.0 liters of serosanguineous fluid from theright lower quadrant. Needle placement was documented with sonographic images.The catheter was removed with little remaining ascites identified.Hemostasis was achieved. The area was dressed with a bandage. The patient tolerated the procedure well with no complication evident andwas discharged in stable condition. Post procedure education was completed including pain management instructions. Estimated blood loss: <5 ml IMPRESSION: Successful ultrasound-guided paracentesis. 3.0 liters of serosanguineous fluid were removed and sent to laboratory for furthertesting, which is pending. THIS IS AN ELECTRONICALLY VERIFIED FINAL REPORT 12/10/2019 1:18 PM - Electronically signed by Nilson SENA T: Report ID: [id number] Reading Location: [place] [address] REPORT ELECTRONICALLY SIGNED IN OTHER VENDOR SYSTEM Bibi Crews DO [facility] US PROCEDURES Final Resul t * Sepsis Lactate (12/09/2019 10:43 PM CDT) Sepsis lactate 1.9 mmol/L [facility] Comment: Lactate Reference Range: 0.5 - 2.2 mmol/L 12/09/2019 10:4 3 PM CDT 12/09/2019 10:48 PM CDT Narrative Resulting Agency Comment ER Candace GARCIA LAB BLOOD ORDERABLE S Final Result Performing Organization Address City/[facility] Co de Phone Number [address] [phone] * Ethanol (12/09/2019 8:39 PM CDT) Pathologist [facility] Ethyl Alcohol 210 mg/dL [facility] Comment: % = mg/dL x .001 12/09/2019 8:39 PM CDT 12/09/2019 8:41 PM CDT Narrative Resulting Agency Comment ER Kenyon Mei MD LAB BLOOD ORDERABLES Final Result Performing Organization Address [facility] de Phone Number [address] [phone] * Procalcitonin (12/09/2019 8:39 PM CDT) Pathologist [facility] Procalcitonin 0.10 0.0 - 0.24 ng/mL [facility] Comment: Guidelines for use with Community Acquired Pneumonia(CAP)- ONLY: ?? <0.1 ng/mL: Use of antibiotics is STRONGLY discouraged ?? 0.1-0.24 ng/mL: Use of antibiotics is discouraged ?? 0.25-0.5 ng/mL: Use of antibiotics is encouraged ?? >0.5 ng/mL: Use of antibiotics is STRONGLY encouraged ?? Recommend repeating every 2-3 days if initial PCT >0.24 12/09/2019 8:39 PM CDT 12/09/2019 8:41 PM CDT Narrative Resulting Agency Comment ER Kenyon Mei MD LAB BLOOD ORDERABLES Final Result [facility] [address] [place] [address], [facility] [phone] * (ABNORMAL) Lipase (12/09/2019 8:39 PM CDT) Lipase 100(H) 13 - 60 U/L [facility] 12/09/2019 8:39 PM CDT 12/09/2019 8:41 PM CDT Narrative Resulting Agency Comment ER Kenyon Mei MD LAB BLOOD ORDERABLES Final Result [facility] [address] [place] [address], [facility] [phone] * TNI with LIPID PANEL (12/09/2019 8:39 PM CDT) [facility] Troponin I <0.300 0.000 - 0.300 ng/mL [facility] Comment: Reference using HARJIT Chemiluminescence ? Negative: Repeat in 4-6 hours as indicated. Triglycerides 98 0 - 149 mg/dL [facility] Comment: National Lipid Association/NCEP Guidelines: ?? Normal ?< 150 mg/dL ?? Borderline high ?? 150-199 mg/dL ?? High ?200-499 mg/dL ?? Very High ? >=500 mg/dL Cholesterol 105 0 - 199 mg/dL [facility] Comment: National Lipid Association/NCEP Guidelines: Desirable ? < 200 mg/dL Borderline high: ??200-239 mg/dL High Risk: ?>=240 mg/dL HDL Cholesterol 19 mg/dL [facility] Comment: Reference Ranges: ? Males: >=40 mg/dL ? Females: >=50 mg/dL LDL Cholesterol, Calc 66 0 - 129 mg/dL [facility] Comment: National Lipid Association/NCEP Guidelines: ??Optimal ? < 100 mg/dL ??Near Optimal ?100-129 mg/dL ??Borderline high 130-159 mg/dL ??High ?>=160 mg/dL Cholesterol/HDL Ratio 5.5 [facility] Comment: Optimal ??< 3.5:1 High ? > 5:1 12/09/2019 8:39 PM CDT 12/09/2019 8:41 PM CDT Narrative Resulting Agency Comment ER us Kenyon Mei MD LAB BLOOD ORDERABLES Final Result [facility] [address] [place] [address], [facility] [phone] * (ABNORMAL) Comprehensive metabolic panel (12/09/2019 8:39 PM CDT) Sodium 133(L) 135 - 145 mmol/L [facility] Potassium 3.7 3.3 - 5.1 mmol/L [facility] Chloride 99 96 - 108 mmol/L [facility] Carbon Dioxide 24 22 - 32 mmol/L [facility] Anion Gap 10 7 - 16 [facility] Glucose 111(H) 70 - 100 mg/dL [facility] BUN 5(L) 8 - 25 mg/dL [facility] Creatinine 0.4(L) 0.5 - 1.3 mg/dL [facility] Comment: The specimen is icteric. A high bilirubin level is known to cause a false decrease in measured creatinine. NOTE: Estimated GFR (Cockroft-Gault) will NOT be calculated unless patient Height and Weight were entered. Also, Kidney Disease Stage (GFR) and Estimated GFR (Cockroft-Gault) will NOT be calculated if Creatinine result is <0.2. Kidney Disease Stage >90 mL/MIN [facility] Comment: NOTE; ??The GFR is an estimated [...] failure or on dialysis Est GFR (Cockcroft-G) 253 ml/MIN [facility] Comment: Estimated GFR(Cockroft-Gault)is used to calculate patient medication dosage Calcium 7.7(L) 8.6 - 10.3 mg/dL [facility] Total Protein 7.5 6.4 - 8.3 g/dL [facility] Albumin 2.5(L) 3.5 - 5.0 g/dL [facility] Globulin 5.0(H) 2.3 - 3.5 gm/dL [facility] Albumin/Globulin Ratio 0.5(L) 1.1 - 1.8 [facility] Total Bilirubin 5.4(H) 0.0 - 1.2 mg/dL [facility] AST 177(H) 0 - 40 U/L [facility] ALT 29 0 - 41 U/L [facility] Alkaline Phosphatase 144(H) 40 - 129 U/L [facility] 12/09/2019 8:39 PM CDT 12/09/2019 8:41 PM CDT Narrative Resulting Agency Comment ER Kenyon Mei MD LAB BLOOD ORDERABLES Final Result [facility] [address] [place] [address], [facility] [phone] * (ABNORMAL) CBC with auto differential (12/09/2019 8:39 PM CDT) WBC 4.3 3.8 - 9.9 X10 3/ul [facility] RBC 3.73(L) 4.30 - 5.80 x10 6/ul [facility] Hemoglobin 11.0(L) 13.0 - 17.5 g/dL [facility] Hct 32.9(L) 38.9 - 50.3 % [facility] MCV 88.2 81.3 - 96.4 fl [facility] MCH 29.5 27.1 - 33.3 pg [facility] MCHC 33.4 32.3 - 35.7 g/dl [facility] RDW 19.9(H) 11.1 - 14.9 % [facility] Plt Count 68(L) 150 - 400 x10 3/ul [facility] MPV 9.6 9.1 - 12.3 fl [facility] Neut % 61.8 % [facility] Immature Gran % 0.2 % [facility] Lymph % 18.8 % [facility] Roberts % 14.8 % [facility] Eos % 2.8 % [facility] AUTO BASO % 1.6 % [facility] NEUTROPHIL ABS # 2.7 1.7 - 6.5 x10 3/ul [facility] Immature Gran # 0.0 0.0 - 0.1 x10 3/ul [facility] Absolute Lymphs (auto) 0.8 0.8 - 3.3 x10 3/ul [facility] Absolute Monos (auto) 0.6 0.2 - 0.8 x10 3/ul [facility] Absolute Eos (auto) 0.1 0.0 - 0.5 x10 3/ul [facility] BASOPHIL ABS # 0.1 0.0 - 0.1 x10 3/ul [facility] Nucleat RBC Rel Count 0.0 #/100WBC [facility] NRBC abs 0.00 0.00 - 0.01 x10 3/ul [facility] Absolute Neutrophils 2,700 200 - 8,000 /ul [facility] 12/09/2019 8:39 PM CDT 12/09/2019 8:41 PM CDT Narrative Resulting Agency Comment ER us Freedom GARCIA LAB BLOOD ORDERABLES Final Result [facility] [address] [place] [address], [facility] [phone] * CT Abdomen Pelvis W Contrast (12/09/2019 12:00 AM CDT) Anatomical Region Laterality Modality Body N/A Computed Tomogra phy 12/09/2019 10:1 1 PM CDT Narrative 12/09/2019 10:35 PM CDT Patient Name: JARED BRUMFIELD JR ?Ordering Dr: Kenyno Mei MD ?? D.O.B: 1970 ? Exam Date: 12/09/19 ?? 0000 ?? Age: 49 ?Sex: Male ? MR#: [id number] ?? Loc: ? RADIOLOGY REPORT ?? Order #[id number] ?? CT Scan ? CT Abd/Pelvis W IV Contrast ? Signed ?? EXAM DESCRIPTION: ?? CT Abd/Pelvis W IV Contrast ? REASON FOR STUDY: ?? n/v, abd pain, hx cirrhosis general abdominal pain, ?? distension ? Alcohol abuse and cirrhosis ? Duration = 2 weeks ? TECHNIQUE: ??CT scan of the abdomen and pelvis performed with intravenous and ? without oral contrast using helical scanning technique with dynamic ?? intravenous contrast injection. Reconstructed coronal and sagittal MPR images ?? reviewed. All images stored on PACS. ? Automated exposure control was used as a dose optimization technique for this ?? examination. ? CONTRAST TYPE/DOSE: ??100 cc Optiray 350 injected through the right forearm, 20 ?? gauge IV ? COMPARISON: ?? 06/03/2019 ? FINDINGS: ? LOWER CHEST: ??No significant pulmonary abnormalities. No effusion. Visualized ?? lower mediastinum is unremarkable. ? LIVER: ??Cirrhotic hepatic morphology with diffuse heterogeneity of the liver, ?? as compared to prior examination. ??Underlying lesions would be difficult to ?? evaluate for. ??Consideration may be given to screening CT or MRI. ? GALLBLADDER: ??Moderately distended, similar as compared to prior examination. ? No stones identified. No wall thickening or inflammatory changes. ? BILE DUCTS: ??No intrahepatic or extrahepatic ductal dilatation. ? SPLEEN: ?? No focal lesions. ? PANCREAS: ??No identified cystic or solid masses. No significant ?? calcifications. No adjacent inflammation or peripancreatic fluid collections. ?? Pancreatic duct not dilated. ? ADRENALS: ??Unremarkable. ? KIDNEYS/URINARY TRACT: ??No identified significant cystic or solid masses. No ?? visualized stones. No hydronephrosis or hydroureter. Symmetric enhancement. ? Bladder is partially decompressed, limiting evaluation. ? GI: Evaluation the gastrointestinal tract is limited by lack of distention and ?? bowel prep. ?? Distal esophagus is unremarkable. ??Stomach is unremarkable. ? There is small bowel wall thickening with hyperenhancement about the left ?? abdomen, compatible with enteritis whether infectious or inflammatory. ??No ?? small bowel obstruction. ??There is apparent non enhancement of the ascending ?? colon. ??No pneumatosis. ??Recommend paracentesis and repeat CT. ? PERITONEUM: ??Moderate to large volume ascites. ??Diffuse mesenteric edema. 2 ? RETROPERITONEUM: ??No mass or adenopathy. ? REPRODUCTIVE: ??No significant abnormality. ? VASCULATURE: ??Evidence of portal hypertension with large vascular collaterals ?? within the left upper quadrant-most compatible with splenorenal shunting.. ? MUSCULOSKELETAL: ??No significant abnormality. ? OTHER: ??No additional significant abnormality. ? IMPRESSION: ? 1. ??Non enhancement of the ascending colonic wall with associated wall ?? thickening, this may be in part be related to hepatic colopathy, however, ?? ischemic causes are not excluded. ??Recommend correlation with lactic acid and ?? low threshold for reimaging. ? 2. ??Small bowel wall thickening with hyperemia, compatible with enteritis ?? whether infectious or inflammatory. ? 3. ??Hepatic cirrhosis with diffusely nodular contour, similar as compared to ?? prior examination. ??Evaluation for underlying mass lesion is otherwise ?? limited. ? 4. ??Moderate to large volume ascites and diffuse mesenteric edema. ? At approximately 10:31 pm on 12/09/2019, this case was discussed in detail with ?? acknowledgement via telephone with RADHA Chatman. ? THIS IS AN ELECTRONICALLY VERIFIED FINAL REPORT ?? 12/09/2019 10:35 PM - Electronically signed by Cynthia Howe ?? Cynthia Howe ? BG ?? D: ??12/09/2019 10:35 PM ?? T: ? Report ID: [id number] ?? Reading Location: ??[id number] ? REPORT ELECTRONICALLY SIGNED IN OTHER VENDOR SYSTEM ?? Resulting Agency Comment E Procedure Note Cynthia Howe MD - 12/09/2019 Patient Name: JARED BRUMFIELD Dr: Kenyon Mei MD D.O.B: 1970 Exam Date: 12/09/19 0000 Age: 49 Sex: Male MR#: [id number] Loc: RADIOLOGY REPORT Order #[id number] CT Scan CT Abd/Pelvis W IV Contrast Signed EXAM DESCRIPTION: CT Abd/Pelvis W IV Contrast REASON FOR STUDY: n/v, abd pain, hx cirrhosis general abdominal pain, distension Alcohol abuse and cirrhosis Duration = 2 weeks TECHNIQUE: CT scan of the abdomen and pelvis performed with intravenousand without oral contrast using helical scanning technique with dynamic intravenous contrast injection. Reconstructed coronal and sagittal MPRimages reviewed. All images stored on PACS. Automated exposure control was used as a dose optimization technique forthis examination. CONTRAST TYPE/DOSE: 100 cc Optiray 350 injected through the rightforearm, 20 gauge IV COMPARISON: 06/03/2019 FINDINGS: LOWER CHEST: No significant pulmonary abnormalities. No effusion.Visualized lower mediastinum is unremarkable. LIVER: Cirrhotic hepatic morphology with diffuse heterogeneity of theliver, as compared to prior examination. Underlying lesions would be difficultto evaluate for. Consideration may be given to screening CT or MRI. GALLBLADDER: Moderately distended, similar as compared to priorexamination. No stones identified. No wall thickening or inflammatory changes. BILE DUCTS: No intrahepatic or extrahepatic ductal dilatation. SPLEEN: No focal lesions. PANCREAS: No identified cystic or solid masses. No significant calcifications. No adjacent inflammation or peripancreatic fluidcollections. Pancreatic duct not dilated. ADRENALS: Unremarkable. KIDNEYS/URINARY TRACT: No identified significant cystic or solid masses.No visualized stones. No hydronephrosis or hydroureter. Symmetricenhancement. Bladder is partially decompressed, limiting evaluation. GI: Evaluation the gastrointestinal tract is limited by lack ofdistention and bowel prep. Distal esophagus is unremarkable. Stomach is unremarkable. There is small bowel wall thickening with hyperenhancement about the left abdomen, compatible with enteritis whether infectious or inflammatory.No small bowel obstruction. There is apparent non enhancement of theascending colon. No pneumatosis. Recommend paracentesis and repeat CT. PERITONEUM: Moderate to large volume ascites. Diffuse mesenteric edema.2 RETROPERITONEUM: No mass or adenopathy. REPRODUCTIVE: No significant abnormality. VASCULATURE: Evidence of portal hypertension with large vascularcollaterals within the left upper quadrant-most compatible with splenorenalshunting.. MUSCULOSKELETAL: No significant abnormality. OTHER: No additional significant abnormality. IMPRESSION: 1. Non enhancement of the ascending colonic wall with associated wall thickening, this may be in part be related to hepatic colopathy, however, ischemic causes are not excluded. Recommend correlation with lactic acidand low threshold for reimaging. 2. Small bowel wall thickening with hyperemia, compatible with enteritis whether infectious or inflammatory. 3. Hepatic cirrhosis with diffusely nodular contour, similar as comparedto prior examination. Evaluation for underlying mass lesion is otherwise limited. 4. Moderate to large volume ascites and diffuse mesenteric edema. At approximately 10:31 pm on 12/09/2019, this case was discussed in detailwith acknowledgement via telephone with RADHA Chatman. 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
--- OUTSIDE RECORDS SUMMARY | 2024-06-27 04:55 | XMS_ITS | Encounter Summary ---
Author Organization [facility] Healthcare Address [address] [place] [address] Care Team Providers Care Rn Wound Name Role Phone Bianca Chand MD Primary Care Provider Encounter Details Date Type Department Care Team (Late st Contact Info) Description 03/18/2019 Documentation [facility] Medicine [facility] [address] [facility] [address] [place] [address] Bianca Chand MD [address] [facility] [address] [place] [address] Social History Tobacco Use Types [...] Progress Notes * Bianca Chand MD - 03/18/2019 3:59 PM CDT Spoke to patient and make sure psych visit and ride was set up for him and he confirms it was. Patient with worsening c/o LH when standing. Suggested that he cut his nadolol in 1/2 until his follow up appointment and see if helps. 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
--- OUTSIDE RECORDS SUMMARY | 2024-06-27 04:55 | XMS_ITS | Encounter Summary ---
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 rehab. Drinks 1/5 gin/ day. Last drink 230pm. No hx of WD seizures.Endorses MJ use. No distress at this time. No nystagmus or dysmetria, lungs clear, RRR. Abdo soft, non tender. Clinically sober, no evidence of WD on exam. Plan to discuss w SW re d/c to detox/rehab facility as pt presented while intoxicated and turned away. By: Aditya Martinez MD Time: 06/24 2255 Comment: Mr. Dubose was referred to the ED this afternoon after he presented to a detox center for alcohol after drinking. He says he last drank at 2pm. He has been through detox before, has a PCP here at [facility]. He also uses meth. No use today. Uses MJ. No complaints currently except fatigue. Has been able eat, no vomiting, no abdominal pain. JEOVANY EOMI no nystagmus OP no tongue fasciculations MMM Neck Supple Chest CTA Heart RRR Abd Soft NT Ext no edema Skin warm, dry Neuro alert motor and sens LT intact x 4 Alcohol use disorder--no evidence of intoxication or withdrawal. Will discuss with SW referral backto detox center now that he is clinically sober. VS are normal Reviewd previous records, h/o etoh related admission diagnoses in the past. Will DC By: Tarun Ibarra MD Time: 06/24 2299 Comment: ATTENDING TRANSITION OF CARE I, Harvey Mccarthy MD, am taking signout from [facility] (Attending). I have reviewed all pertinent vital signs allergies, and history available in the chart. Summary: 49 y.o. male polysubstance referred from rehab Pending: SW- rehab Dispo: likely d/c By: Harvey Mccarthy MD Time: 06/25 0203 Comment: Patient resting comfortably. Reports mild tremor, mild headache. Denies diaphoresis, palpitations, nausea, vomiting, diarrhea. Will call ED Obs for transfer. SW is faxing info from this ED visit to rehab center By: Nan Anand MD Time: 06/25 0257 Comment: Pt to OBS unit Awaiting to hear from [facility] social work involved By: Miroslava Ibarra NP Time: 06/25 0509 Comment: Called [facility], left message. Patient sleeping comfortably By: Nan Anand MD Time: 06/25 0706 Comment: TRANSITION OF CARE: I, Jameson Mccallum MD PhD, am taking signout from [facility] (Resident) under supervision of Fabio(Attending). I have reviewed all pertinent vital signs, allergies, and history available in the chart. Summary: 49 y.o. male with PSA (meth, EtOH). Here for EtOH withdrawal. Pending: will evaluate rehab admission at 0800, eval for withdrawl Dispo: To rehab By: Jameson Mccallum MD PhD Time: 06/25 715 Comment: TRANSITION OF CARE: I, Josep Mackey MD, am taking signout from [facility]. I have reviewed all pertinent vital signs, allergies, and history available in the chart. Summary: 49 y.o. male with ETOH withdrawal, here with withdrawal and placement into rehab Pending: [facility] eval Dispo: Rehab or home if they can't accommodate. By: MD Nan Rothman MD Resident 06/25/19726 EL WASHER documented in this encounter Plan of Treatment Not on file documented as of this encounter Procedures Procedure Name Priority Date/Time Associated Diagnosis Comments DIFFERENTIAL AUTO Routine 06/24/2019 6:4 3 PM BARREL WASHER CBC WITH AUTO DIFFERENTIAL Routine 06/24/2019 6:43 PM BARREL WASHER MAGNESIUM STAT 06/24/2019 6:43 PM BARREL WASHER FOLATE STAT 06/24/2019 6:43 PM BARREL WASHER VITAMIN B12 STAT 06/24/2019 6:43 PM BARREL WASHER BASIC METABOLIC PANEL STAT 06/24/2019 6:43 PM BARREL WASHER documented in this encounter Results * Vitamin B12 (06/24/2019 6:43 PM BARREL WASHER) Vitamin B12 797 230 - 1,250 pg/mL [facility] Blood specimen (specimen) 06/24/2019 6:43 PM BARREL WASHER 06/24/2019 6:58 PM BARREL WASHER us Notinfile Unknown LAB BLOOD ORDERABLES Final Res ult [facility] [place] [address] * Folate (06/24/2019 6:43 PM BARREL WASHER) Pathologist [facility] Folic acid 9.7 >=5.0 ng/mL [facility] Blood specimen (specimen) 06/24/2019 6:43 PM BARREL WASHER 06/24/2019 6:58 PM BARREL WASHER us Notinfile Unknown LAB BLOOD ORDERABLES Final Res ult Performing Organization Address [facility] Co de Phone Number [facility] Department [place] [address] * Differential, auto (06/24/2019 6:43 PM BARREL WASHER) [facility] Neutrophil abs 1.9 1.7 - 6.5 K/cumm [facility] Imm gran abs 0.0 0.0 - 0.1 K/cumm [facility] Lymphocyte abs 1.3 0.8 - 3.3 K/cumm [facility] Monocyte abs 0.3 0.2 - 0.8 K/cumm [facility] Eosinophil abs 0.2 0.0 - 0.5 K/cumm [facility] Basophil abs 0.1 0.0 - 0.1 K/cumm [facility] Neutrophil pct 49.9 % [facility] Comment: Interpretive Data Percent cell count reference ranges are not reported, since discordance with absolute values may lead to misinterpretation of CBC data. Current Interpretive Data was last revised on 2017. Imm gran pct 0.3 % [facility] Comment: Interpretive Data Percent cell count reference ranges are not reported, since discordance with absolute values may lead to misinterpretation of CBC data. Current Interpretive Data was last revised on 2017. Lymphocyte pct 34.9 % [facility] Comment: Interpretive Data Percent cell count reference ranges are not reported, since discordance with absolute values may lead to misinterpretation of CBC data. Current Interpretive Data was last revised on 2017. Monocyte pct 8.1 % [facility] Comment: Interpretive Data Percent cell count reference ranges are not reported, since discordance with absolute values may lead to misinterpretation of CBC data. Current Interpretive Data was last revised on 2017. Eosinophil pct 5.2 % [facility] Comment: Interpretive Data Percent cell count reference ranges are not reported, since discordance with absolute values may lead to misinterpretation of CBC data. Current Interpretive Data was last revised on 2017. Basophil pct 1.6 % [facility] Comment: Interpretive Data Percent cell count reference ranges are not reported, since discordance with absolute values may lead to misinterpretation of CBC data. Current Interpretive Data was last revised on 2017. Blood specimen (specimen) 06/24/2019 6:43 PM BARREL WASHER 06/24/2019 6:58 PM BARREL WASHER Nilson Cormier MD LAB BLOOD ORDERA BLES Final Result Performing Organization Address City/[facility]/ZIP Co de Phone Number [facility] Department [place] [address] * Magnesium (06/24/2019 6:43 PM BARREL WASHER) Pathologist [facility] Magnesium 2.0 1.4 - 2.5 mg/dL [facility] Blood specimen (specimen) 06/24/2019 6:43 PM BARREL WASHER 06/24/2019 6:58 PM BARREL WASHER Narrative [facility] - 06/24/2019 7:24 PM BARREL WASHER THE COLLECTION LOCATION IS Nilson Cormier MD LAB BLOOD ORDERA BLES Final Result Performing Organization Address City/[facility]/ZIP Co de Phone Number [facility] [place] [address] * (ABNORMAL) Basic metabolic panel (06/24/2019 6:43 PM BARREL WASHER) Pathologist [facility] Sodium 141 135 - 145 mmol/L [facility] Potassium, pl 3.7 3.3 - 4.9 mmol/L [facility] Chloride 108 97 - 110 mmol/L [facility] CO2 24 22 - 32 mmol/L [facility] Anion gap 9 2 - 15 mmol/L [facility] BUN 5(L) 8 - 25 mg/dL [facility] Creatinine 0.86 0.80 - 1.30 mg/dL [facility] Glucose 111 70 - 199 mg/dL [facility] Comment: Interpretive Data Fasting glucose >/= [...] interpretive data was last revised 2017. Calcium 8.1(L) 8.5 - 10.3 mg/dL [facility] Blood specimen (specimen) 06/24/2019 6:43 PM BARREL WASHER 06/24/2019 6:58 PM BARREL WASHER Narrative [facility] - 06/24/2019 7:24 PM BARREL WASHER THE COLLECTION LOCATION IS Nilson Cormier MD LAB BLOOD ORDERA BLES Final Result [facility] Department [place] [address] * (ABNORMAL) CBC with auto differential (06/24/2019 6:43 PM BARREL WASHER) WBC 3.8 3.8 - 9.9 K/cumm [facility] Hgb 10.4(L) 13.0 - 17.5 g/dL [facility] Hct 33.6(L) 38.9 - 50.3 % [facility] Plt 86(L) 150 - 400 K/cumm [facility] MPV 9.7 9.1 - 12.3 fL [facility] RBC 3.94(L) 4.30 - 5.80 M/cumm [facility] MCV 85.3 81.3 - 96.4 fL [facility] MCH 26.4(L) 27.1 - 33.3 pg [facility] MCHC 31.0(L) 32.3 - 35.7 g/dL [facility] RDW CV 19.9(H) 11.1 - 14.9 % [facility] RDW SD 62.1(H) 35.7 - 48.1 fL [facility] NRBC abs 0.00 0.00 - 0.01 K/cumm [facility] Blood specimen (specimen) 06/24/2019 6:43 PM BARREL WASHER 06/24/2019 6:58 PM BARREL WASHER Narrative [facility] - 06/24/2019 7:09 PM BARREL WASHER THE COLLECTION LOCATION IS Nilson Cormier MD LAB BLOOD ORDERA BLES Final Result Performing Organization Address City/State/[facility] Co de Phone Number [facility] Department [place] [address] documented in this encounter Visit Diagnoses Diagnosis ETOH abuse- Primary Nondependent alcohol abuse, unspecified drinking behavior History of hepatitis C Personal history of other infectious and parasitic disease documented in this encounter Administered Medications Inactive Administered Medications - up to 3 most recent administrations Medication Order MAR Action Action Date Dose Rate Site chlordiazePOXIDE (LIBRIUM) capsule 25 mg 25 mg, oral, Once, On Sun06/25/19 at 0743, For 1 dose Given 06/25/2019 8:21 AM BARREL WASHER 25 mg diazePAM (VALIUM) tablet 5 mg 5 mg, oral, Once, On Sun06/24/19 at 1821, For 1 dose, Indications: Alcohol Withdrawal SyndromeIndications:Alcohol Withdrawal Syndrome Given 06/24/2019 6:51 PM BARREL WASHER 5 mg folic acid (FOLVITE) tablet 1 mg 1 mg, oral, Once, On Sun06/24/19 at 2322, For 1 dose Given 06/24/2019 11:26 PM BARREL WASHER 1 mg Lactated Ringer's (LR) bolus 1,000 mL 1,000 mL, intravenous, Once, On Sun06/24/19 at 2233, For 1 dose New Bag 06/24/2019 10:48 PM BARREL WASHER 1,000 mL thiamine (VITAMIN B1) tablet 100 mg 100 mg, oral, Once, On Sun06/24/19 at 2258, For 1 dose Given 06/24/2019 11:12 PM BARREL WASHER 100 mg documented in this encounter Discontinued Medications Medication Sig Discontinue Reason Start Date End Da te chlordiazePOXIDE (LIBRIUM) 25 mg capsule Take 1 capsule (25 mg total) by mouth 3 (three) times a day as needed for anxiety Reorder 06/25/2019 06/25/2019 documented as of this encounter Historical Medications * This list may reflect changes made after this encounter. risperiDONE (RisperDAL) 1 mg tablet Take 1 mg by mouth 2 (two) times a day 05/27/2020 added in this encounter Active and Recently Administered Medications Times are shown in BARREL WASHER. Scheduled Medication Order 06/23/2019 06/24/2019 06/25/2019 chlordiazePOXIDE (LIBRIUM) capsule 25 mg (COMPLETED) 25 mg, oral, Once, On Sun06/25/19 at 0743, For 1 dose 0821 (Given - Provid er: Cristino Savage RN) diazePAM (VALIUM) tablet 5 mg (COMPLETED) 5 mg, oral, Once, On Sun06/24/19 at 1821, For 1 dose, Indications: Alcohol Withdrawal Syndrome 1851 (Given - Provider: Candace Mccall, REJI) folic acid (FOLVITE) tablet 1 mg (COMPLETED) 1 mg, oral, Once, On Sun06/24/19 at 2322, For 1 dose 2326 (Given - Provider: Haseeb Mack, REJI) Lactated Ringer's (LR) bolus 1,000 mL (COMPLETED) 1,000 mL, intravenous, Once, On Sun06/24/19 at 2233, For 1 dose 2248 (New Bag - Provider: Haseeb Mack, REJI) 0249 (Stopped - Provider: Zain Rai, REJI) thiamine (VITAMIN B1) tablet 100 mg (COMPLETED) 100 mg, oral, Once, On Sun06/24/19 at 2258, For 1 dose 2312 (Given - Provider: Haseeb Mack, REJI) documented in this encounter Orders Medications Ordered That Salo ht Not Have Been Administered Count Last Ordered Date First Ordered Date folic acid (FOLVITE) 1 mg in sodium chloride 0.9% 50 mL IVPB 1 06/24/2019 Lab Orders Without Results Count Last Ordered D ate First Ordered Date FOLATE 1 06/24/2019 VITAMIN B12 1 06/24/2019 ADT Patient Update Count Last Ordered Date Firs t Ordered Date PLACE IN ED OBSERVATION 2 06/25/2019 documented in this encounter Additional Health Concerns Infection Onset Date Last Indicated Resolved Time 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
--- OUTSIDE RECORDS SUMMARY | 2024-06-27 04:55 | XMS_ITS | Encounter Summary ---
Author Organization [facility] Address [address] [place] [address] Care Team Providers Care Wallpaper Inspector And Shipper Name Role Phone Jayne Bowen MD Primary Care Provider + Encounter Details Date Type Department Care Team (Late st Contact Info) Description 08/14/2019 9:06 AM PRINCIPAL STATISTICAL SCIENTIST - 08/14/2019 11:00 AM PRINCIPAL STATISTICAL SCIENTIST Hospital Encounter [address] [address] Nan Ryan DO [address] [place] [address] [place] [address] Unknown, Notinfile Discharge Disposition: Discharge to home or self [...] Reading Time Taken Comments Blood Pressure 134/82 08/14/2019 9:07 AM PRINCIPAL STATISTICAL SCIENTIST Pulse 76 08/14/2019 9:07 AM PRINCIPAL STATISTICAL SCIENTIST Temperature 36.3 ??C (97.4 ??F) 08/14/2019 9:07 AM CS T Respiratory Rate - - Oxygen Saturation 96% 08/14/2019 9:07 AM PRINCIPAL STATISTICAL SCIENTIST Inhaled Oxygen Concentration - - Weight 88.4 kg (194 lb 14.2 oz) 08/14/2019 9:07 AM PRINCIPAL STATISTICAL SCIENTIST Height 182.9 cm (6') 08/14/2019 9:07 AM PRINCIPAL STATISTICAL SCIENTIST Body Mass Index 26.43 08/14/2019 9:07 AM PRINCIPAL STATISTICAL SCIENTIST documented in this encounter Medications at Time [...] XR SHOULDER RIGHT 2 OR MORE VIEWS 08/14/2019 12:00 AM PRINCIPAL STATISTICAL SCIENTIST documented in this encounter Results * XR Shoulder Right 2 or More Views (08/14/2019 12:00 AM PRINCIPAL STATISTICAL SCIENTIST) Anatomical Region Laterality Modality Upper Extremities, Shoulder Right Radi ographic Imaging 08/14/2019 10:1 7 AM PRINCIPAL STATISTICAL SCIENTIST Narrative 08/14/2019 10:19 AM PRINCIPAL STATISTICAL SCIENTIST Patient Name: CHESTER BRUMFIELD JR ?Ordering Dr: Nan Ryan DO ?? D.O.B: 1970 ? Exam Date: 08/14/19 ?? 0000 ?? Age: 49 ?Sex: Male ? MR#: [id number] ?? Loc: ? RADIOLOGY REPORT ?? Order #[id number] ?? Radiology ? Shoulder RT 2Vw Min (STANDARD) ? Signed ?? EXAM DESCRIPTION: ??Shoulder RT 2Vw Min (STANDARD) ? REASON FOR STUDY: ??states it popped out of place early this am, this is the ?? 3rd time it has, done that ? TECHNIQUE: ??Internal rotation, external rotation, and scapular Y views of the ?? right shoulder were obtained. ? COMPARISON: ??None ? FINDINGS: ? BONES/JOINTS: No acute fracture, malalignment or osseous abnormalities.Joint ?? spaces are maintained. ? SOFT TISSUES: Unremarkable. ? VISUALIZED RIBS AND LUNG: No significant finding. ? OTHER: No significant finding. ? IMPRESSION: ??No acute osseous abnormality. ? THIS IS AN ELECTRONICALLY VERIFIED FINAL REPORT ?? 08/14/2019 10:19 AM - Electronically signed by Yuliya Luna M.D. ?? Yuliya Luna M.D. ? TB ?? D: ??08/14/2019 10:19 AM ?? T: ? Report ID: [id number] ?? Reading Location: ??[id number] ? REPORT ELECTRONICALLY SIGNED IN OTHER VENDOR SYSTEM ?? Resulting Agency Comment P Procedure Note Yuliya Luna MD - 08/14/2019 Patient Name: MARIELYLUCILACHESTERDIRK Chowdhury Dr: Nan Ryan DO D.O.B: 1970 Exam Date: 08/14/19 0000 Age: 49 Sex: Male MR#: [id number] Loc: RADIOLOGY REPORT Order #[id number] Radiology Shoulder RT 2Vw Min (STANDARD) Signed EXAM DESCRIPTION: Shoulder RT 2Vw Min (STANDARD) REASON FOR STUDY: states it popped out of place early this am, this isthe 3rd time it has, done that TECHNIQUE: Internal rotation, external rotation, and scapular Y views ofthe right shoulder were obtained. COMPARISON: None FINDINGS: BONES/JOINTS: No acute fracture, malalignment or osseousabnormalities.Joint spaces are maintained. SOFT TISSUES: Unremarkable. VISUALIZED RIBS AND LUNG: No significant finding. OTHER: No significant finding. IMPRESSION: No acute osseous abnormality. THIS IS AN ELECTRONICALLY VERIFIED FINAL REPORT 08/14/2019 10:19 AM - Electronically signed by Yuliya Luna M.D. 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
--- OUTSIDE RECORDS SUMMARY | 2024-06-27 04:55 | XMS_ITS | Encounter Summary ---
Author Organization [facility] Healthcare Address [address] [place] [address] Care Team Providers Care Insole Tack Puller Hand Name Role Phone Bianca Chand MD Primary Care Provider Jayne Bowen MD Primary Care Provider + Griselda Juarez DOBIE MAN Primary Care Provide r No, Physician Primary Care Provider [phone] Referring, Unknown Primary Care Provider Unav ailable Michelle Delcid MD Primary Care Provider [phone] Encounter Details Date Type Department Care Team (Late st Contact Info) Description 06/25/2019 Documentation [facility] Social Work [address] [place] [address] Lisseth Sy LCSW Social History Tobacco Use Types Packs/Day Years [...] documented as of this encounter Care Teams Insole Tack Puller Hand Relationship Specialty Start Date End Date Bianca Chand MD PCP - General 06/24/19 08/13/19 Jayne Bowen MD [address] [place] [address] PCP - General 08/14/19 01/06/20 Griselda Juarez NP [address] [place] [address] PCP - General Nurse Practitioner 01/07/20 04/07/20 No, Physician PCP - General 04/08/20 05/26/20 Referring, Neeraj, PCP - General Pediatrics 03/19/22 04/26/22 Michelle Delcid MD [address] [place] [id number] PCP - General Family Medicine 04/27/22 documented as of this encounter
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
--- OUTSIDE RECORDS SUMMARY | 2024-06-27 04:55 | XMS_ITS | Encounter Summary ---
Author Organization [facility] Facility Care Team Providers Care Senior Oracle Adf Developer Name Role Phone Bianca Chand MD Primary Care Provider Encounter Details Date Type Department Care Team (Latest Contact Info) Description 06/25/2019 Travel Social History Tobacco Use Types Packs/Day [...] documented as of this encounter Care Teams Senior Oracle Adf Developer Relationship Specialty Start Date End Date Bianca Chand MD PCP - General 06/24/19 08/13/19 documented as of this encounter
--- OUTSIDE RECORDS SUMMARY | 2024-06-27 04:55 | XMS_ITS | Encounter Summary ---
Author Organization [facility] Healthcare Address [address] [place] [address] Care Team Providers Care Furniture Inspector Name Role Phone No, Physician Primary Care Provider [phone] Bianca Chand MD Primary Care Provider Reason for Visit * Reason Onset Date Comments staff message 02/26/2019 Encounter Details Date Type Department Care Team (Late st Contact Info) Description 02/26/2019 Telephone [facility] Primary [facility] Medicine Clinic [address] [facility] [place] [address] No, Physician staff message Social History Tobacco Use Types Packs/Day Years Used Date Smoking Tobacco: Former Smokeless Tobacco: Former Alcohol Use Standard Drinks/Week Comments Yes 12 (1 standard drink = 0.6 oz pu re alcohol) last drink 02/19/19 Sex and Gender Information Value Date Recorded Sex Assigned at Not on file Legal Sex Male 8:48 AM CDT Gender Identity Not on file Sexual Orientation Not on file documented as of this encounter Miscellaneous Notes * Telephone Encounter - Orville Vazquez - 02/26/2019 10:30 AM CDT Called and left voicemail to call the medicine clinic back to schedule visit. Orville, ----- Message from Jaison Roblero MD sent at 02/25/2019 3:07 PM CDT ----- Patient is in the hospital but can't make his follow-up appointment, can we please reschedule him for a new appointment. Phone number is [phone]. Thanks documented in this encounter Plan of Treatment Not on file documented as of this encounter Visit Diagnoses Not on filedocumented in this encounter Additional Health Concerns Infection Onset Date Last Indicated Resolved Time 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 Care Teams Furniture Inspector Relationship Specialty Start Date End Date No, Physician PCP - General 02/21/19 03/01/19 Bianca Chand MD [address] [address] PCP - General Internal Medicine 03/02/19 06/02/19 documented as of this encounter
--- OUTSIDE RECORDS SUMMARY | 2024-06-27 04:55 | XMS_ITS | Encounter Summary ---
Author Organization [facility] Healthcare Address [address] [place] [address] Care Team Providers Care Vp Genetic Name Role Phone Bianca Chand MD Primary Care Provider Encounter Details Date Type Department Care Team (Late st Contact Info) Description 04/02/2019 Orders Only [facility] Primary [facility] Medicine Clinic [address] [facility] [address] [place] [address] Cristino Cuenca MD [address] [facility] [address] [place] [address] Social History Tobacco Use Types [...] documented as of this encounter Care Teams Vp Genetic Relationship Specialty Start Date End Date Bianca Chand MD [address] [facility] [address] [place] [address] PCP - General Internal Medicine 03/02/19 06/02/19 documented as of this encounter
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
--- OUTSIDE RECORDS SUMMARY | 2024-06-27 04:55 | XMS_ITS | Encounter Summary ---
Author Organization [facility] Healthcare Address [address] [place] [address] Care Team Providers Care Sales Operations Manager Name Role Phone Bianca Chand MD Primary Care Provider Reason for Visit * Reason Onset Date Comments Follow-up 04/02/2019 Encounter Details Date Type Department Care Team (Late Contact Info) Description 04/02/2019 Telephone [facility] [address] [facility] [address] [place], [place] [id number] Cristino Cuenca MD [address] [facility] [address] [place] [address] Follow-up Social History Tobacco Use Types Packs/Day Years [...] encounter Miscellaneous Notes * Telephone Encounter - Cristino Cuenca MD - 04/02/2019 4:38 PM CDT I called the patient at the home / mobile phone number listed to discuss his EGD. I informed him that I had called the GI lab, and they said that he was not currently on their schedule. They recommended that he call the GI scheduling center ([phone]) to schedule the EGD. I relayed this messageto him. He voiced understanding and did not have any further questions at this time. documented in this encounter Plan of Treatment Not on file documented as of this encounter Visit Diagnoses Not on filedocumented in this encounter Additional Health Concerns Infection Onset Date Last Indicated Resolved Time 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 Care Teams Sales Operations Manager Relationship Specialty Start Date End Date Bianca Chand MD [address] [place] [phone] PCP - General Internal Medicine 03/02/19 06/02/19 documented as of this encounter
--- OUTSIDE RECORDS SUMMARY | 2024-06-27 04:55 | XMS_ITS | Encounter Summary ---
Author Organization [facility] Healthcare Address [address] [place] [address] Care Team Providers Care Choral Teacher Name Role Phone Bianca Chand MD Primary Care Provider Reason for Referral * Diagnostic Imaging (Routine) - Closed Specialty Diagnoses / Procedures Referred By Kileyac t Referred To Contact Diagnoses Primary osteoarthritis involving multiple joints Procedures XR Knee Left 3 Views Cristino Cuenca MD [address] [place] [address] Phone: tel: fax: [address] [phone] Referral ID Status Reason Start Date Expiration Date Visits Re quested Visits Authorized [id number] Closed 04/02/2019 10/11/2020 1 1 * Diagnostic Imaging (Routine) - Closed Specialty Diagnoses / Procedures Referred By Hoang t Referred To Contact Diagnoses Primary osteoarthritis involving multiple joints Procedures XR Shoulder Right 2 or More Views Cristino Cuenca MD [address] [place] [address] Phone: tel: fax: [address] [phone] Referral ID Status Reason Start Date Expiration Date Visits Re quested Visits Authorized [id number] Closed 04/02/2019 10/11/2020 1 1 * Diagnostic Imaging (Routine) - Closed Specialty Diagnoses / Procedures Referred By Hoang leroy Referred To Contact Diagnoses Primary osteoarthritis involving multiple joints Procedures XR Shoulder Left 2 or More Views Cristino Cuenca MD [address] [place] [address] Phone: tel: fax: [address] [phone] Referral ID Status Reason Start Date Expiration Date Visits Re quested Visits Authorized [id number] Closed 04/02/2019 10/11/2020 1 1 * Diagnostic Imaging (Routine) - Closed Specialty Diagnoses / Procedures Referred By Hoang leroy Referred To Contact Diagnoses Primary osteoarthritis involving multiple joints Procedures XR Knee Right 3 Views Cristino Cuenca MD [address] [place] [address] Phone: tel: fax: [address] [phone] Referral ID Status Reason Start Date Expiration Date Visits Re quested Visits Authorized [id number] Closed 04/02/2019 10/11/2020 1 1 Reason for Visit * Diagnostic Imaging (Routine) - Closed Specialty Diagnoses / Procedures Referred By Hoang leroy Referred To Contact Diagnoses Primary osteoarthritis involving multiple joints Procedures XR Knee Right 3 Views Cristino Cuenca MD [address] [place] [address] Phone: tel: fax: [address] [phone] Referral ID Status Reason Start Date Expiration Date Visits Re quested Visits Authorized [id number] Closed 04/02/2019 10/11/2020 1 1 Encounter Details Date Type Department Care Team (Latest Contact Info) Description 04/02/2019 10:18 AM CDT - 04/02/2019 11:59 PM CDT Hospital Encounter [facility] [address] [place] [address] [place] [address] Dev Hernandez MD [address] [place] [address] Cristino Cuenca MD [address] [facility] [address] [place] [address] Primary osteoarthritis involving multiple joints Discharge Disposition: Discharge to home or self [...] mouth daily 30 tablet 3 03/03/2019 09/16/2020 nicotine (NICODERM CQ) [address] 1 patch on the skin daily 28 patch 1 04/02/2019 05/27/[address] (PROTONIX) 40 mg EC tabletIndications :Alcoholic cirrhosis of liver with ascites (CMS/HCC) (HCC) Take 1 tablet (40 mg total) by mouth 2 (two) times a day 60 tablet 3 03/03/2019 05/27/2020 QUEtiapine XR (SEROquel XR) 300 mg 24 hr tablet 300 mg 03/08/2018 0 zolpidem (AMBIEN) 10 mg tablet 10 mg 03/08/2018 05/27/2020 documented as of this encounter Discharge Disposition Disposition Code Departure Means Destination Discharge to home or self care documented in this encounter Plan of Treatment Not on file documented as of this encounter Procedures Procedure Name Priority Date/Time Associated Diagnosis Comments XR KNEE RIGHT 3 VIEWS Schedule Routine, Read Routine (OP Routine) 04/02/2019 10:49 AM CDT Primary osteoarthritis involving multiple joints XR KNEE LEFT 3 VIEWS Schedule Routine, Read Routine (OP Routine) 04/02/2019 10:49 AM CDT Primary osteoarthritis involving multiple joints XR SHOULDER RIGHT 2 OR MORE VIEWS Schedule Routine, Read Routine (OP Routine) 04/02/2019 10:49 AM CDT Primary osteoarthritis involving multiple joints XR SHOULDER LEFT 2 OR MORE VIEWS Schedule Routine, Read Routine (OP Routine) 04/02/2019 10:49 AM CDT Primary osteoarthritis involving multiple joints documented in this encounter Results * XR Knee Left 3 Views (04/02/2019 [...] Electronically signed by: Kenyon Jimenez M.D. Cristino Cuenca MD IMG XR PROCEDURES Final Result * [...] Electronically signed by: Kenyon Jimenez M.D. Cristino Cuenca MD IMG XR PROCEDURES Final Result * [...] evaluation. Electronically signed by: Kenyon Jimenez M.D. us Cristino Cuenca MD IM XR PROCEDURES Final Result * XR Knee Right 3 Views (04/02/2019 [...] evaluation. Electronically signed by: Kenyon Jimenez M.D. 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
--- OUTSIDE RECORDS SUMMARY | 2024-06-27 04:55 | XMS_ITS | Encounter Summary ---
Author Organization [facility] Facility Care Team Providers Care Organ Installer Name Role Phone Bianca Chand MD Primary Care Provider Encounter Details Date Type Department Care Team (Latest Contact Info) Description 06/24/2019 Travel Social History Tobacco Use Types Packs/Day [...] documented as of this encounter Care Teams Organ Installer Relationship Specialty Start Date End Date Bianca Chand MD PCP - General 06/24/19 08/13/19 documented as of this encounter
--- OUTSIDE RECORDS SUMMARY | 2024-06-27 04:55 | XMS_ITS | Encounter Summary ---
Author Organization [facility] Healthcare Address [address] [place] [address] Care Team Providers Care Visual And Stock Associate Name Role Phone Bianca Chand MD Primary Care Provider Reason for Visit * Reason Onset Date Comments Discuss Test Results 04/02/2019 Encounter Details Date Type Department Care Team (Late Contact Info) Description 04/02/2019 Telephone [facility] Medicine Clinic [address] [facility] Outpatient Health [address] [place], [place] [id number] Cristino Cuenca MD [address] [facility] [address] [place] [address] Discuss Test Results Social History Tobacco Use Types [...] Encounter - Cristino Cuenca MD - 04/02/2019 11:10 AM CDT I called the patient at the home / mobile phone number listed to discuss his test results. I informed him that the X-rays done today were normal, showed no evidence of OA. I said given these results,I was going to cancel the referral to Ortho. He asked if he was supposed to keep his other appointments. I encouraged him to go to both of his scheduled appointments (PFTs on 05/05/19 and PCP on 06/20/19). He voiced understanding and did not have any further questions at this time. 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
--- OUTSIDE RECORDS SUMMARY | 2024-06-27 04:55 | XMS_ITS | Encounter Summary ---
Author Organization [facility] Healthcare Address [address] [place] [address] Care Team Providers Care Metal Coater Name Role Phone Bianca Chand MD Primary Care Provider Encounter Details Date Type Department Care Team (Late st Contact Info) Description 03/03/2019 10:00 AM CDT Lab [facility] Outpatient Health [address] [place] [address] [place] [address] Alcoholic cirrhosis of liver with ascites (CMS/HCC) [...] Procedure Name Priority Date/Time Associated Diagnosis Comments LIPID PANEL Routine 03/03/2019 10:05 AM CDT Alcoholic cirrhosis of liver with ascites (CMS/HCC) HEPATITIS C RNA, QUANTITATIVE, PCR Routine 03/03/2019 9:59 AM CDT Alcoholic cirrhosis of liver with ascites (CMS/HCC) documented in this encounter Results * (ABNORMAL) Lipid panel (03/03/2019 10:05 AM CDT) Cholesterol 116 30 - 199 mg/dL [facility] Comment: Interpretive Data Ages < or = [...] revised on 2018. Triglycerides 48 <=149 mg/dL [facility] Comment: Interpretive Data Ages < or = [...] on 2018. HDL 34(L) >=40 mg/dL [facility] Comment: Interpretive Data Ages < or = [...] on 2018. LDL, calculated 72 <=129 mg/dL [facility] Comment: Interpretive Data Ages < or = [...] revised on 2018. Non-HDL Cholesterol 82 mg/dL [facility] Comment: Interpretive Data Ages < or = [...] last revised on 2018. Chol/HDL ratio 3 [facility] Blood specimen (specimen) 03/03/2019 10:05 AM CDT 03/03/2019 11:02 AM CDT Bianca Chand MD LAB BLOOD ORDERABLES F inal Result Performing Organization Address [facility] de Phone Number [address] [address] * Hepatitis C (HCV) RNA PCR, quantitative (03/03/2019 9:59 AM CDT) HCV RNA result Not Detected [facility] Comment: Interpretive data: The quantifiable range of this assay is 15 IU/mL to 100,000,000 IU/mL (1.18 log IU/mL to 8.00 log IU/mL). Testing was performed by the [employer] AmpliPrep/HARJIT TaqMan HCV Test version 2.0 ([employer] Testing performed at [facility] Current Interpretive Data was last revised on 2015. Blood specimen (specimen) 03/03/2019 9:59 AM CDT 03/03/2019 12:01 PM CDT Bianca Chand MD LAB MICROBIOLOGY - GEN ERAL ORDERABLES Final Result Performing Organization Address [facility] de Phone Number [address] [address] documented in this encounter Visit Diagnoses Diagnosis Alcoholic cirrhosis of liver with ascites (CMS/HCC) (HCC) documented in this encounter Additional Health Concerns Infection Onset Date Last Indicated Resolved Time 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 Care Teams Metal Coater Relationship Specialty Start Date End Date Bianca Chand MD [address] [address] PCP - General Internal Medicine 03/02/19 06/02/19 documented as of this encounter
--- OUTSIDE RECORDS SUMMARY | 2024-06-27 04:55 | XMS_ITS | Encounter Summary ---
Author Organization [facility] Healthcare Address [address] [place] [address] Care Team Providers Care Tower Hoist Operator Name Role Phone No, Physician Primary Care Provider [phone] Bianca Chand MD Primary Care Provider Reason for Visit * Reason Onset Date Comments staff message 02/25/2019 Encounter Details Date Type Department Care Team (Late st Contact Info) Description 02/25/2019 Telephone [facility] [address] [facility] Health [address] [place] [address] No, Physician staff message Social [...] * Telephone Encounter - Orville Vazquez - 02/25/2019 2:08 PM CDT Patient has been scheduled for 02/28/19. ----- Message from Preeti Garay RN sent at 02/24/2019 3:03 PM CDT ----- Chester Dubose 1970. Patient has Medicare A/B and would like to establish care at the [facility] med clinic. ADD 02/25. Will need appt within 5 days of discharge. Thanks! 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
--- OUTSIDE RECORDS SUMMARY | 2024-06-27 04:55 | XMS_ITS | Encounter Summary ---
Author Organization [facility] Address [address] [place] [address] Phone Care Team Providers Care Sales Designer Name Role Phone Bianca Chand MD Primary Care Provider Encounter Details Date Type Department Care Team (Late st Contact Info) Description 03/14/2019 Documentation [facility] [address] [facility] [place] Outpatient Health [address] [place] [address] Rachelle Herndon MD [address] [facility] [address] [place] [address] Social History Tobacco Use Types [...] as of this encounter Progress Notes * Rachelle Herndon MD - 03/14/2019 4:04 PM CDT From: Bianca Chand MD Sent: 03/10/2019 5:56 PM Chester Dubose : 1970 Subject: PS-Consult Auth Req The patient is coming to me to establish PCP care after hospitalization. Previously followed with psychiatrist in [facility] that he does not remember the name. Would like to establish with psychiatry again. He has an unclear psych diagnosis (previuosly given bipolar and/or schizophrenia but in the setting of PSA) and I would like to have a more defined psych diagnosis for him moving forward. Previously on seroquel, lamictal, abilify which worked various amounts for him. Does have mood disorder along with AH/VH and history of SI. Patient reports history of both depression and anxiety but not necessarily luis. In the appointment he said he was having both auditory and visual hallucinations of murmurs and shadows. Not currently on any medications. Has been approx 1 year since being on medications. No recent hospitalization for primary psych illness. Patient reports prior ETOH, Tobacco, Cocaine, Marijuana abuse and remote IVDU. As of recent admission, endorses quitting all substances since then. Question: would like to clarify psych diagnosis and recommend medication that may help his current anxiety without exacerbating his other psychiatric conditions. Referral approved. 

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
--- OUTSIDE RECORDS SUMMARY | 2024-06-27 04:56 | XMS_ITS | Encounter Summary ---
Author Organization [facility] Healthcare Address [address] [place] [address] Care Team Providers Care Blood Bank Attendant Name Role Phone No, Physician Primary Care Provider [phone] Encounter Details Date Type Department Care Team (Late st Contact Info) Description 02/24/2019 8:19 AM CDT Anesthesia Event [facility] [address] [place] [address] Triston Chau MD [address] [facility] [address] [place] [address] Anesthesia Record Procedure Summary Procedure Name Responsible Anesthesiologist Anesthesia Start Time Anesthesia Stop Time ESOPHAGOGASTRODUODENOSCOPY B AND LIGATION Triston Chau MD 02/24/19 0819 02/24/19 0859 Events Date Time Event Comment 02/24/2019 0747 0819 An Start 0819 An Start Data 0822 In Room 0828 An Induction The patient was reevaluated immediately before moderate or deep sedation use and before anesthesia induction. 0828 Anesthesia Ready 0829 Proc Start 0844 Proc Fin 0859 Out of Room 0859 an stop data 0859 Handoff to RN I completed my handoff [...] disposition at the time of handoff: PACU 0859 An Stop Meds Name Total propofol 300 mg lidocaine 1 % 80 mg * Agents Name O2% N2O * Blood No blood administrations on file. Lines, Drains, and Airways Type Details Placement Removal Peripheral IV Placement Date: 11/03; Placement Time: 99; Existing LDA Placed by: Other hospital; Change Due: 02/24/19; Catheter Size: 18 G; Orientation: Left; Location: Hand; Removal Date: 02/24/19; Removal Time: 2332; Removal Reason: Drainage 02/20/1999 by Bibi Laird RN 02/24/192332 by Gerard Monte RN Peripheral IV Placement Date: 11/03; Placement Time: 99; Existing LDA Placed by: Other hospital; Change Due: 02/24/19; Catheter Size: 20 G; Orientation: Left; Location: Wrist; Removal Date: 02/24/19; Removal Time: 1999; Removal Reason: Drainage 02/20/1999 by Bibi Laird RN 02/24/191999 by Gerard Monte RN documented in this encounter Social History [...] OR Notes * Anesthesia Postprocedure Evaluation - Triston Chau MD - 02/24/2019 9:29 AM CDT Patient: Chester Dubose Procedure Summary Date: 02/24/19 Room / Location: [facility] OR POD 5 ROOM 224 / [facility] Anesthesia Start: 818 Anesthesia Stop: 858 Procedure: ESOPHAGOGASTRODUODENOSCOPY BAND LIGATION (N/A ) Diagnosis: Hematemesis, presence of nausea not specified (Hematemesis, presence of nausea not specified [K92.0]) Provider: Phi Vasquez MD Responsible Provider: Triston Chau MD Anesthesia Type: MAC ASA Status: 3 Anesthesia Type: MAC Last vitals BP 113/75 (BP Location: Right arm) Pulse 90 Temp 36.5 ??C (97.7 ??F) (Temporal) Resp 20 SpO2 97% Anesthesia Post Evaluation Patient location during evaluation: PACU Patient participation: complete - patient participated Level of consciousness: fully awake Pain score: 0 Pain management: adequate Airway patency: adequate Evidence of recall: no Anesthetic complications: no Cardiovascular status: hemodynamically stable Respiratory status: room air Hydration status: stable Pt is: normothermic Nausea/Vomiting status: none * Anesthesia Preprocedure Evaluation - Triston Chau MD - 02/24/2019 8:11 AM CDT Anesthesia Evaluation Chester Dubose is a 48 y.o. male Procedure(s): ESOPHAGOGASTRODUODENOSCOPY Pre-Op Diagnosis Codes: * Hematemesis, presence of nausea not specified [K92.0] Patient Active Problem List Diagnosis ??? Hematemesis ??? Hematochezia ??? Cirrhosis (CMS/HCC) ??? Polysubstance abuse (CMS/HCC) ??? Hepatitis C No past medical history on file. No past surgical history on file. No Known Allergies HOME MEDICATIONS : Not on File Current Facility-Administered Medications: ??? [AUG Hold] acetaminophen (TYLENOL) tablet 500 mg, 500 mg, oral, Q6H PRN, 500 mg at 02/23/192120 ??? [AUG Hold] cefTRIAXone (ROCEPHIN) 1,000 mg/10 mL in sterile water (premix) 1,000 mg, 1,000 mg, intravenous, Q24H FANNY, Last Rate: 120 mL/hr at 02/23/19 0800, 1,000 mg at 02/23/19 0800 ??? [AUG Hold] folic acid (FOLVITE) tablet 1 mg, 1 mg, oral, Daily, 1 mg at 02/23/192035 ??? [AUG Hold] LORazepam (ATIVAN) tablet 1 mg, 1 mg, oral, Q6H PRN, 1 mg at 02/24/19 0003 ??? [AUG Hold] nicotine (NICODERM CQ) 14 mg patch 24 hour 1 patch, 1 patch, transdermal, Daily, Stopped at 02/23/19 0801 ??? octreotide (SandoSTATIN) 500 mcg in sodium chloride 0.9% 100 mL (5 mcg/mL) infusion, 50 mcg/hr,intravenous, Continuous, Last Rate: 10 mL/hr at 02/24/19 0734, 50 mcg/hr at 02/24/19 0734 ??? [AUG Hold] ondansetron (ZOFRAN) injection 4 mg, 4 mg, intravenous, Q4H PRN, 4 mg at 02/22/19 1154 ??? [AUG Hold] pantoprazole (PROTONIX) injection 40 mg, 40 mg, intravenous, BID, 40 mg at 02/23/19 2036 ??? [AUG Hold] prochlorperazine (COMPAZINE) injection 5 mg, 5 mg, intravenous, Q6H PRN, 5 mg at 02/22/19 1600 ??? [AUG Hold] ramelteon (ROZEREM) tablet 8 mg, 8 mg, oral, Nightly PRN, 8 mg at 02/23/19 2256 ??? [AUG Hold] sodium chloride 0.9% flush 0.5-20 mL, 0.5-20 mL, intra-catheter, Q8H FANNY, 10 mL at 02/24/19 0537 ??? [MAR Hold] sodium chloride 0.9% flush 0.5-20 mL, 0.5-20 mL, intra-catheter, PRN ??? sodium chloride 0.9% flush 0.5-20 mL, 0.5-20 mL, intra-catheter, PRN ??? sodium chloride 0.9% flush 0.5-20 mL, 0.5-20 mL, intra-catheter, PRN ??? sodium chloride 0.9% infusion, 30 mL/hr, intravenous, Continuous ??? [AUG Hold] thiamine (VITAMIN B-1) tablet 50 mg, 50 mg, oral, Daily, 50 mg at 02/23/19 0800 Social History Tobacco Use Smoking Status Former Smoker Smokeless Tobacco Former User Substance and Sexual Activity Alcohol Use Yes ??? Alcohol/week: 7.2 oz ??? Types: 12 Cans of beer per week Comment: last drink 02/19/19 Substance and Sexual Activity Drug Use Yes ??? Types: Marijuana, Cocaine Comment: marijuana daily, cocaine 6-8 months ago No family history on file. PAT Physical Exam Vitals: 02/24/19 0428 02/24/19 0735 02/24/19 0800 BP: 139/88 138/76 134/88 Pulse: 81 84 73 Resp: 16 16 15 Temp: 36.9 ??C (98.4 ??F) 36.8 ??C (98.2 ??F) 36.5 ??C (97.7 ??F) SpO2: 99% 98% 92% PT: 02/21/2019: 17.0 sec* INR: 02/21/2019: 1.56* APTT: No results found for requested labs within last 720 hours. Hgb A1C: No results found for requested labs within last 720 hours. CBC RBC: 02/24/2019: 2.90 M/cumm* RDW: No results found for requested labs within last 720 hours. MCHC: 02/24/2019: 33.0 g/dL MCH: 02/24/2019: 33.1 pg MCV: 02/24/2019: 100.3 fL* Hct: 02/24/2019: 29.1 %* Hgb: 02/24/2019: 9.6 g/dL* WBC: 02/24/2019: 3.9 K/cumm MPV: 02/24/2019: 11.4 fL Platelets: 02/24/2019: 78 K/cumm* RDW CV: 02/24/2019: 14.0 % RDW Sd: 02/24/2019: 50.6 fL* BMP Glucose: 02/24/2019: 127 mg/dL Calcium: 02/24/2019: 8.3 mg/dL* Sodium: 02/24/2019: 138 mmol/L Potassium: 02/24/2019: 3.3 mmol/L CO2: 02/24/2019: 26 mmol/L Chloride: 02/24/2019: 105 mmol/L BUN: 02/24/2019: 4 mg/dL* Creatinine: 02/24/2019: 0.72 mg/dL* DOS Physical Exam Medical history, medications, and allergies reviewed. Attestation: With today's edits, I endorse the the findings of the H&P dated: 02/24/2019. Airway Exam: Mallampati: II Cervical ROM: FROM TM distance: normal Jaw ROM: full Cardiovascular Exam: Rate: regular Rhythm: regular Pulmonary Exam: LCTA, bilat Current state: Patient's current state is cooperative. Anesthesia Plan ASA 3 My patient is approved for the Anesthesia Controlled Medication protocol when under care of a HAND BUNCH MAKER Planned anesthesia: MAC Induction: Induction: intravenous. Postoperative Plan: No plan for postoperative opioid use. No postoperative mechanical ventilation intended. Patient's planned disposition post procedure is Floor. Informed Consent: Discussed plan with HAND B[facility]CH [facility]ER. Anesthesia plan and risks discussed with patient. 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
--- OUTSIDE RECORDS SUMMARY | 2024-06-27 04:56 | XMS_ITS | Encounter Summary ---
Author Organization [facility] Healthcare Address [address] [place] [id number] Care Team Providers Care Linux Engineer Name Role Phone Jayne Bowen MD Primary Care Provider + Encounter Details Date Type Department Care Team (Late st Contact Info) Description 09/24/2018 12:13 PM CDT - 09/24/2018 6:31 PM [place] [address] Loki Mcwilliams MD [address] [place] [address] [place] [address] Discharge Disposition: Discharge to home or self care Social History Tobacco Use Types Packs/Day Years Used Date Smoking Tobacco: Never Assessed Sex and Gender Information Value Date Recorded Sex Assigned at Not on file Legal Sex Male 8:48 AM CDT Gender Identity Not on file Sexual Orientation Not on file documented as of this encounter Last Filed Vital Signs Vital Sign Reading Time Taken Comments Blood Pressure 158/89 09/24/2018 12:13 PM CDT Pulse 89 09/24/2018 12:13 PM CDT Temperature 36.6 ??C (97.8 ??F) 09/24/2018 12:13 PM C DT Respiratory Rate - - Oxygen Saturation 99% 09/24/2018 12:13 PM CDT Inhaled Oxygen Concentration - - Weight 85 kg (187 lb 6.3 oz) 09/24/2018 12:13 PM CDT Height 182.9 cm (6') 09/24/2018 12:13 PM CDT Body Mass Index 25.42 09/24/2018 12:13 PM CDT documented in this encounter Medications at Time of Discharge Medication Sig Dispense Quantity Refills Last Filled Start D ate End Date amLODIPine (NORVASC) 5 mg tablet 5 mg 03/08/2018 05/27/2020 QUEtiapine XR (SEROquel XR) 300 mg [...] Name Priority Date/Time Associated Diagnosis Comments CBC WITH AUTO DIFFERENTIAL Routine 09/24/2018 1:31 PM CDT TSH Routine 09/24/2018 1:31 PM CDT ETHANOL Routine 09/24/2018 1:31 PM CDT ACETAMINOPHEN LEVEL Routine 09/24/2018 1 :31 PM CDT SALICYLATE LEVEL Routine 09/24/2018 1:31 PM CDT COMPREHENSIVE METABOLIC PANEL Routine 09/24/2018 1:31 PM CDT URINALYSIS AND REFLEX TO MICROSCOPIC AND CULTURE Routine 09/24/2018 1:14 PM CDT DRUGS OF ABUSE SCREEN, URINE WITHOUT CONFIRMATION Routine 09/24/2018 1:14 PM CDT XR ABDOMEN 2 VIEWS W CHEST 1 VIEW 09/24/2018 12:00 AM CDT XR SHOULDER LEFT 2 OR MORE VIEWS 09/24/2018 12:00 AM CDT documented in this encounter Results * Ethanol (09/24/2018 1:31 PM CDT) Ethyl Alcohol 307 mg/dL [facility] Comment: % = mg/dL x .001 09/24/2018 1:31 PM CDT 09/24/2018 1:39 PM CDT Narrative Resulting Agency Comment ER Loki Mcwilliams MD LAB BLOOD ORDERABLES Final Result Performing Organization Address [facility] [address]/[facility] Co de Phone Number [address] [phone] * Salicylate level (09/24/2018 1:31 PM CDT) Salicylates 6 0 - 29 mg/dL [facility] 09/24/2018 1:31 PM CDT 09/24/2018 1:39 PM CDT Narrative Resulting Agency Comment ER Loki Mcwilliams MD LAB BLOOD ORDERABLES Final Result Performing Organization Address [facility] Co de Phone Number [address] [phone] * (ABNORMAL) Acetaminophen level (09/24/2018 1:31 PM CDT) Acetaminophen <5.0(L) 10.0 - 30.0 ug/mL [facility] Comment: Acetaminophen concentrations greater than 200 ug/mL at 4 hours, and/or greater than 100 ug/mL at 8 hours, and/or greater than 50 ug/mL at 12 hours after ingestion have been associated with toxicity. Use of a nomogram is recommended. 09/24/2018 1:31 PM CDT 09/24/2018 1:39 PM CDT Narrative Resulting Agency Comment ER us Loki Mcwilliams MD LAB BLOOD ORDERABLES Final Result Performing Organization Address [facility] [address]/[facility] Co de Phone Number [address] [phone] * TSH (09/24/2018 1:31 PM CDT) TSH 2.16 0.27 - 4.20 uIU/mL [facility] 09/24/2018 1:31 PM CDT 09/24/2018 1:39 PM CDT Narrative Resulting Agency Comment ER us Loki Mcwilliams MD LAB BLOOD ORDERABLES Final Result [facility] [address] [place] [address], [facility] [phone] * (ABNORMAL) Comprehensive metabolic panel (09/24/2018 1:31 PM CDT) Sodium 142 135 - 145 mmol/L [facility] Potassium 3.2(L) 3.3 - 5.1 mmol/L [facility] Chloride 104 96 - 108 mmol/L [facility] Carbon Dioxide 23 22 - 32 mmol/L [facility] Anion Gap 15 7 - 16 [facility] Glucose 106(H) 70 - 100 mg/dL [facility] BUN 4(L) 8 - 25 mg/dL [facility] Creatinine 0.6 0.5 - 1.3 mg/dL [facility] Comment: NOTE: Estimated GFR (Cockroft-Gault) will NOT be calculated unless patient Height and Weight were entered. Also, Kidney Disease Stage (GFR) and Estimated GFR (Cockroft-Gault) will NOT be calculated if Creatinine result is <0.2. Kidney Disease Stage >90 mL/MIN [facility] Comment: NOTE; ??The GFR is an [...] on dialysis Est GFR (Cockcroft-G) 173 ml/MIN [facility] Comment: Estimated GFR(Cockroft-Gault)is used to calculate patient medication dosage Calcium 8.6 8.6 - 10.3 mg/dL [facility] Total Protein 7.8 6.4 - 8.3 g/dL [facility] Albumin 3.5 3.5 - 5.0 g/dL [facility] Globulin 4.3(H) 2.3 - 3.5 gm/dL [facility] Albumin/Globulin Ratio 0.8(L) 1.1 - 1.8 [facility] Total Bilirubin 1.4(H) 0.0 - 1.2 mg/dL [facility] AST 259(H) 0 - 40 U/L [facility] ALT 51(H) 0 - 41 U/L [facility] Alkaline Phosphatase 140(H) 40 - 129 U/L [facility] 09/24/2018 1:31 PM CDT 09/24/2018 1:39 PM CDT Narrative Resulting Agency Comment ER us Loki Mcwilliams MD LAB BLOOD ORDERABLES Final Result [facility] [address] [place] [address], [facility] [phone] * (ABNORMAL) CBC with auto differential (09/24/2018 1:31 PM CDT) WBC 4.7 3.8 - 9.9 X10 3/ul [facility] RBC 4.15(L) 4.30 - 5.80 x10 6/ul [facility] Hemoglobin 10.7(L) 13.0 - 17.5 g/dL [facility] Hct 33.7(L) 38.9 - 50.3 % [facility] MCV 81.2(L) 81.3 - 96.4 fl [facility] MCH 25.8(L) 27.1 - 33.3 pg [facility] MCHC 31.8(L) 32.3 - 35.7 g/dl [facility] RDW 20.8(H) 11.1 - 14.9 % [facility] Plt Count 80(L) 150 - 400 x10 3/ul [facility] MPV 9.8 9.1 - 12.3 fl [facility] Neut % 59.5 % [facility] Immature Gran % 0.2 % [facility] Lymph % 26.2 % [facility] [place] % 10.9 % [facility] Eos % 1.3 % [facility] AUTO BASO % 1.9 % [facility] NEUTROPHIL ABS # 2.8 1.7 - 6.5 x10 3/ul [facility] Immature Gran # 0.0 0.0 - 0.1 x10 3/ul [facility] Absolute Lymphs (auto) 1.2 0.8 - 3.3 x10 3/ul [facility] Absolute Monos (auto) 0.5 0.2 - 0.8 x10 3/ul [facility] Absolute Eos (auto) 0.1 0.0 - 0.5 x10 3/ul [facility] BASOPHIL ABS # 0.1 0.0 - 0.1 x10 3/ul [facility] Nucleat RBC Rel Count 0.0 #/100WBC [facility] NRBC abs 0.00 0.00 - 0.01 x10 3/ul [facility] Absolute Neutrophils 2,800 200 - 8,000 /ul [facility] 09/24/2018 1:31 PM CDT 09/24/2018 1:39 PM CDT Narrative Resulting Agency Comment ER us Loki Mcwilliams MD LAB BLOOD ORDERABLES Final Result [facility] [address] [place] [address], [facility] [phone] * Drug Screen, Urine without Confirmation (09/24/2018 1:14 PM CDT) Pathologist [facility] Amphetamines NOT DETECTED [facility] Comment: This assay uses 500 ng/mL as a cutoff for a positive result. Barbiturates NOT DETECTED [facility] Comment: This assay uses 200 ng/mL as a cutoff for a positive result. Benzodiazepines NOT DETECTED [facility] Comment: This assay uses 100 ng/mL as a cutoff for a positive result. Cannabinoids NOT DETECTED [facility] Comment: This assay uses 50 ng/mL as a cutoff for a positive result. Cocaine DETECTED [facility] Comment: This assay uses 150 ng/mL as a cutoff for a positive result. Opiates NOT DETECTED [facility] Comment: This assay uses 300 ng/mL as a cutoff for a positive result. Urine methadone NOT DETECTED [facility] Comment: This assay uses 300 ng/mL as a cutoff for a positive result. Urine phencyclidine plus NOT DETECTED [facility] Comment: This assay uses 25 ng/mL as a cutoff for a positive result. Oxycodone NOT DETECTED [facility] Comment: This assay uses 100 ng/mL as a cutoff for a positive result. Urine Creatinine/GERMAN 27.0 mg/dL [facility] Comment: If Creatinine is < 40 mg/dL, recollection is suggested. 09/24/2018 1:14 PM CDT 09/24/2018 1:21 PM CDT Narrative [facility] - 09/24/2018 1:59 PM CDT Collected By [facility] Resulting Agency Comment ER us Loki Mcwilliams MD LAB URINE ORDERABLES Final Result [facility] [address] [phone] * (ABNORMAL) Urinalysis reflex to microscopic and culture (09/24/2018 1:14 PM CDT) Ur Collection Type CLEAN CATCH [facility] Ur Culture Indicated? C S NOT INDICATED [facility] Urine Color YELLOW YELLOW [facility] Urine Clarity [facility] Urine Glucose (UA) NORMAL NORMAL mg/dL [facility] Urine Bilirubin NEGATIVE NEGATIVE mg/dl [facility] Urine Ketones NEGATIVE NEGATIVE mg/dL [facility] Ur Specific Ken[place] 1.003(L) 1.005 - 1.025 [facility] Urine Blood NEGATIVE NEGATIVE mg/dl [facility] Urine pH 7.0 5.0 - 8.0 [facility] Urine Protein NEGATIVE NEGATIVE mg/dL [facility] Urine Urobilinogen NORMAL NORMAL mg/dL [facility] Urine Nitrite NEGATIVE NEGATIVE [facility] Ur Leukocyte Esterase NEGATIVE NEGATIVE Jimmy/ul [facility] Ur Microscopic Review Not Indicated [facility] 09/24/2018 1:14 PM CDT 09/24/2018 1:21 PM CDT Narrative [facility] - 09/24/2018 1:26 PM CDT Indication(s) for ordering ?? Other - enter in comments [facility] Clean catch Resulting Agency Comment ER us Notinfile Unknown LAB MICROBIOLOGY - GENERAL ORD ERABLES Final Result [facility] [address] [phone] * XR Shoulder Left 2 or More Views (09/24/2018 12:00 AM CDT) Anatomical Region Laterality Modality Upper Extremities, Shoulder Left Radi ographic Imaging 09/24/2018 3:17 PM CDT Narrative 09/24/2018 3:17 PM CDT Patient Name: CHESTER BRUMFIELD JR ?Ordering Dr: Loki Mcwilliams MD ?? D.O.B: 1970 ? Exam Date: 09/24/18 ?? 0000 ?? Age: 48 ?Sex: Male ? MR#: [id number] ?? Loc: ? RADIOLOGY REPORT ?? Order #[id number] ?? Radiology ? Shoulder LT 2Vw Min (STANDARD) ? Signed ?? EXAM DESCRIPTION: ??Shoulder LT 2Vw Min (STANDARD) ? REASON FOR STUDY: ??pain in lt shoudler all over x 2 days/ no known injury ? TECHNIQUE: ??3 total views acquired of the left shoulder. ? COMPARISON: ??None ? FINDINGS: ? BONES/JOINTS: No acute fracture, malalignment or osseous abnormalities.Joint ?? spaces are maintained. ? SOFT TISSUES: Unremarkable. ? VISUALIZED RIBS AND LUNG: No significant finding. ? OTHER: No significant finding. ? IMPRESSION: ??No acute osseous abnormality. ? THIS IS AN ELECTRONICALLY VERIFIED FINAL REPORT ?? 09/24/2018 3:17 PM - Electronically signed by Oskar Stephens M.D. ?? Oskar Stephens M.D. ? NC ?? D: ??09/24/2018 3:17 PM ?? T: ? Report ID: [id number] ?? Reading Location: ??[id number] ? REPORT ELECTRONICALLY SIGNED IN OTHER VENDOR SYSTEM ?? Resulting Agency Comment E Procedure Note Oskar Stephens MD - 09/24/2018 Patient Name: CHESTER BRUMFIELD JROrdering Dr: Loki Mcwilliams MD, D.O.B: 1970 Exam Date: 09/24/18 0000 Age: 48 Sex: Male MR#: [id number] Loc: RADIOLOGY REPORT Order #[id number] Radiology Shoulder LT 2Vw Min (STANDARD) Signed EXAM DESCRIPTION: Shoulder LT 2Vw Min (STANDARD) REASON FOR STUDY: pain in lt shoudler all over x 2 days/ no known injury TECHNIQUE: 3 total views acquired of the left shoulder. COMPARISON: None FINDINGS: BONES/JOINTS: No acute fracture, malalignment or osseousabnormalities.Joint spaces are maintained. SOFT TISSUES: Unremarkable. VISUALIZED RIBS AND LUNG: No significant finding. OTHER: No significant finding. IMPRESSION: No acute osseous abnormality. THIS IS AN ELECTRONICALLY VERIFIED FINAL REPORT 09/24/2018 3:17 PM - Electronically signed by Oskar PANIAGUA T: Report ID: [id number] Reading Location: [id number] REPORT ELECTRONICALLY SIGNED IN OTHER VENDOR SYSTEM us Loki Mcwilliams MD IMG XR PROCEDURES Final Re sult * XR Abdomen 2 Views W Chest 1 View (09/24/2018 12:00 AM CDT) Anatomical Region Laterality Modality Body, Abdomen N/A Radiographic Lynette ging 09/24/2018 2:09 PM CDT Narrative 09/24/2018 2:16 PM CDT Patient Name: CHESTER BRUMFIELD JR ?Ordering Dr: Loki Mcwilliams MD ?? D.O.B: 1970 ? Exam Date: 09/24/18 ?? 0000 ?? Age: 48 ?Sex: Male ? MR#: [id number] ?? Loc: ? RADIOLOGY REPORT ?? Order #[id number] ?? Radiology ? Obstruction Series AP/UP/Chest ? Signed ?? EXAM DESCRIPTION: ??Obstruction Series AP/UP/Chest ? REASON FOR STUDY: ??Cough shortness of breath, nausea and blood in urine for 1 ?? day. ? TECHNIQUE: ??Frontal chest, supine abdomen and upright/decubitus abdomen ?? radiographic views acquired. ? COMPARISON: ??None available ? FINDINGS: ? LUNGS/PLEURA: No focal consolidation or pneumothorax. No pleural effusion. ? HEART/MEDIASTINUM: Heart size is normal. Normal mediastinal and hilar contours. ? FREE-AIR: None. No abnormal gas collections. ? BOWEL GAS PATTERN: Nonobstructive pattern. No dilated loops or air fluid ?? levels. ? SOFT TISSUES: No significant abnormal calcifications. ? HARDWARE/LINES/TUBES: None. ? BONES: No significant abnormality. ? OTHER: No other significant finding. ? IMPRESSION: ??No acute abnormalities. ? THIS IS AN ELECTRONICALLY VERIFIED FINAL REPORT ?? 09/24/2018 2:16 PM - Electronically signed by Gamaliel García M.D. ?? Gamaliel García M.D. ? JA ?? D: ??09/24/2018 2:16 PM ?? T: ? Report ID: [id number] ?? Reading Location: ??[id number] ? REPORT ELECTRONICALLY SIGNED IN OTHER VENDOR SYSTEM ?? Resulting Agency Comment E Procedure Note Gamaliel García MD - 09/24/2018 Patient Name: GER BRUMFIELDDIRK [facility] Dr: Loki Mcwilliams MD D.O.B: 1970 Exam Date: 09/24/18 0000 Age: 48 Sex: Male MR#: [id number] Loc: RADIOLOGY REPORT Order #[id number] Radiology Obstruction Series AP/UP/Chest Signed EXAM DESCRIPTION: Obstruction Series AP/UP/Chest REASON FOR STUDY: Cough shortness of breath, nausea and blood in urinefor 1 day. TECHNIQUE: Frontal chest, supine abdomen and upright/decubitus abdomen radiographic views acquired. COMPARISON: None available FINDINGS: LUNGS/PLEURA: No focal consolidation or pneumothorax. No pleuraleffusion. HEART/MEDIASTINUM: Heart size is normal. Normal mediastinal and hilarcontours. FREE-AIR: None. No abnormal gas collections. BOWEL GAS PATTERN: Nonobstructive pattern. No dilated loops or air fluid levels. SOFT TISSUES: No significant abnormal calcifications. HARDWARE/LINES/TUBES: None. BONES: No significant abnormality. OTHER: No other significant finding. IMPRESSION: No acute abnormalities. 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
--- OUTSIDE RECORDS SUMMARY | 2024-06-27 04:56 | XMS_ITS | Encounter Summary ---
Author Organization [facility] Healthcare Address [address] [place] [id number] Care Team Providers Care Deck Specialist Name Role Phone Unavailable Primary Care Provider Unavailabl e Encounter Details Date Type Department Care Team (Latest Contact Info) Description 03/09/2018 3:43 PM CDT - 03/11/2018 7:52 AM CDT Hospital Encounter [facility] Tawanna Corey MD [address] [place] [address] Alcoholic cirrhosis of liver with ascites (CMS/HCC); Secondary esophageal varices with bleeding (CMS/HCC); Portal hypertension (CMS/HCC); Gastro-esophageal reflux disease without esophagitis; Anxiety disorder; Bipolar disorder (CMS/HCC); Cigarette nicotine dependence, uncomplicated; Cocaine abuse, uncomplicated Social History Tobacco Use Types Packs/Day Years Used Date Smoking Tobacco: Never Assessed Sex and Gender Information Value Date Recorded Sex Assigned at Not on file Legal Sex Male 8:48 AM CDT Gender Identity Not on file Sexual Orientation Not on file documented as of this encounter Last Filed Vital Signs Vital Sign Reading Time Taken Comments Blood Pressure 135/86 03/08/2018 2:06 PM CDT Pulse 68 03/08/2018 2:06 PM CDT Temperature 36.8 ??C (98.2 ??F) 03/08/2018 2:06 PM CD T Respiratory Rate - - Oxygen Saturation 95% 03/08/2018 2:06 PM CDT Inhaled Oxygen Concentration - - Weight 79.9 kg (176 lb 4 oz) 03/08/2018 2:06 PM CDT Height 182.9 cm (6') 03/08/2018 2:06 PM CDT Body Mass Index 23.9 03/08/2018 2:06 PM CDT documented in this encounter Medications at Time of Discharge Medication Sig Dispense Quantity Refills Last Filled Start D ate End Date amLODIPine (NORVASC) 5 mg tablet 5 mg 03/08/2018 05/27/2020 QUEtiapine XR (SEROquel XR) 300 mg 24 hr tablet 300 mg 03/08/2018 0 zolpidem (AMBIEN) 10 mg tablet 10 mg 03/08/2018 05/27/2020 documented as of this encounter Plan of Treatment Not on file documented as of this encounter Procedures Procedure Name Priority Date/Time Associated Diagnosis Comments CBC WITH AUTO DIFFERENTIAL Routine 03/10/2018 5:58 AM CDT COMPREHENSIVE METABOLIC PANEL Routine 03/10/2018 5:58 AM CDT CBC WITH AUTO DIFFERENTIAL Routine 03/09/2018 12:12 PM CDT CBC WITH AUTO DIFFERENTIAL Routine 03/09/2018 3:34 AM CDT PROTIME-INR Routine 03/09/2018 3:34 AM CDT H. PYLORI ANTIBODY, IGG Routine 03/09/2018 3:34 AM CDT COMPREHENSIVE METABOLIC PANEL Routine 03/09/2018 3:[address] CERVICAL SPINE WO CONTRAST Routine 03/09/2018 12:[address] HEAD WO CONTRAST Routine 03/09/2018 1 2:00 AM CDT HEMOGLOBIN AND HEMATOCRIT Routine 03/08/2018 9:52 PM CDT INFECTION PREVENTION MRSA ONLY (STAPHYLOCOCCUS AUREUS) PCR Routine 03/08/2018 11:15 AM CDT COMPREHENSIVE METABOLIC PANEL Routine 03/08/2018 10:40 AM CDT CBC WITH AUTO DIFFERENTIAL Routine 03/08/2018 10:39 AM CDT HEPATITIS PANEL, ACUTE Routine 8 10:39 AM CDT CBC WITH AUTO DIFFERENTIAL Routine 03/08/2018 6:47 AM CDT APTT Routine 03/08/2018 6:47 AM CDT PROTIME-INR Routine 03/08/2018 6:47 AM CDT ETHANOL Routine 03/08/2018 6:47 AM CDT COMPREHENSIVE METABOLIC PANEL Routine 03/08/2018 6:47 AM CDT XR CHEST 1 VIEW Routine 03/08/2018 12:00 AM CDT documented in this encounter Results * (ABNORMAL) Comprehensive metabolic panel (03/10/2018 5:58 AM CDT) Sodium 137 135 - 145 mmol/L 03/10/2018 7:18 AM CDT [place] HISTORICAL RESULTS Potassium 3.7 3.3 - 5.1 mmol/L 03/10/2018 7:18 AM CDT [place] HISTORICAL RESULTS Chloride 105 96 - 108 mmol/L 03/10/2018 7:18 AM CDT [place] HISTORICAL RESULTS Carbon Dioxide 24 22 - 32 mmol/L 03/10/2018 7:18 AM CDT [place] HISTORICAL RESULTS Anion Gap 8 7 - 16 03/10/2018 7:18 AM CDT [place] HISTORICAL RESULTS Glucose 105(H) 70 - 100 mg/dL 03/10/2018 7:18 AM CDT [place] HISTORICAL RESULTS BUN 9 6 - 20 mg/dL 03/10/2018 7:18 AM CDT [place] HISTORICAL RESULTS Creatinine 0.6 0.5 - 1.3 mg/dL 03/10/2018 7:18 AM CDT [place] HISTORICAL RESULTS Comment: NOTE: Estimated GFR (Cockroft-Gault) will NOT be calculated unless patient Height and Weight were entered. Also, Kidney Disease Stage (GFR) and Estimated GFR (Cockroft-Gault) will NOT be calculated if Creatinine result is <0.2. Kidney Disease Stage > 90 mL/MIN 03/10/2018 7:18 AM [employer] [facility] [employer] [facility] HISTORICAL RESULTS Comment: NOTE; ??The GFR is an estimated [...] mL/min ? Kidney failure or on dialysis @ Est GFR (Cockcroft-G) 169 ml/MIN 03/10/2018 7:18 AM [employer] [facility] [employer] [facility] HISTORICAL RESULTS Comment: Estimated GFR(Cockroft-Gault)is used to calculate patient medication dosage Calcium 7.7(L) 8.6 - 10.0 mg/dL 03/10/2018 7:18 AM [employer] HISTORICAL RESULTS Total Protein 6.2(L) 6.4 - 8.3 g/dL 03/10/2018 7:18 AM [facility] [employer] HISTORICAL RESULTS Albumin 2.7(L) 3.5 - 5.2 g/dL 03/10/2018 7:18 AM [facility] [employer] HISTORICAL RESULTS Globulin 3.5 2.3 - 3.5 gm/dL 03/10/2018 7:18 AM [facility] [employer] [facility] Medical HISTORICAL RESULTS Albumin/Globulin Ratio 0.8(L) 1.1 - 1.8 Total Bilirubin 1.6(H) 0.0 - 1.2 mg/dL AST 150(H) 0 - 40 U/L ALT 36 0 - 41 U/L Alkaline Phosphatase 83 40 - 129 U/L 03/10/2018 5:58 AM CDT 03/10/2018 6:35 AM CDT us Jonny Tomas MD LAB BLOOD ORDERABLES Final Result [facility] HISTORICAL RESULTS * (ABNORMAL) CBC with auto differential (03/10/2018 5:58 AM CDT) WBC 4.8 3.5 - 10.5 x10 3/ul RBC 2.43(L) 4.11 - 5.71 x10 6/ul Hemoglobin 8.2(L) 13.0 - 17.0 g/dL Hct 24.4(L) 38.2 - 48.5 % MCV 100.4(H) 80.0 - 97.0 fl MCH 33.7(H) 27.0 - 31.2 pg MCHC 33.6 31.8 - 35.4 g/dl RDW 14.0 11.6 - 14.8 % Plt Count 102(L) 150 - 450 X10 3/ul MPV 10.1 7.4 - 10.4 fl Neut % 61.1 37.0 - 85.0 % Immature Gran % 0.2 0.0 - 3.0 % Lymph % 21.0 5.0 - 45.0 % [place] % 12.9 3.0 - 15.0 % Eos % 4.0 0.0 - 7.0 % Baso % 0.8 0.0 - 2.0 % Absolute Neuts (auto) 2.9 1.7 - 8.7 x10 3/ul Immature Gran # 0.0 0.0 - 0.3 x10 3/ul Absolute Lymphs (auto) 1.0 0.2 - 4.6 x10 3/ul Absolute Monos (auto) 0.6 0.1 - 1.5 x10 3/ul Absolute Eos (auto) 0.2 0.0 - 0.7 x10 3/ul Absolute Basos (auto) 0.0 0.0 - 0.2 x10 3/ul Nucleat RBC Rel Count 0.0 0 - 3 #/100WBC Absolute Nucleated RBC 0.00 x10 3/ul Absolute Neutrophils 2900 200 - 8000 /ul 03/10/2018 5:58 AM CDT 03/10/2018 6:35 AM CDT Jonny Tomas MD LAB BLOOD ORDERABLES Final Result [facility] HISTORICAL RESULTS * (ABNORMAL) CBC with auto differential (03/09/2018 12:12 PM CDT) WBC 4.9 3.5 - 10.5 x10 3/ul RBC 2.61(L) 4.11 - 5.71 x10 6/ul Comment:Results reviewed Hemoglobin 8.8(L) 13.0 - 17.0 g/dL Comment:Results reviewed Hct 26.5(L) 38.2 - 48.5 % MCV 101.5(H) 80.0 - 97.0 fl MCH 33.7(H) 27.0 - 31.2 pg MCHC 33.2 31.8 - 35.4 g/dl RDW 15.1(H) 11.6 - 14.8 % Plt Count 103(L) 150 - 450 X10 3/ul MPV 10.3 7.4 - 10.4 fl Neut % 58.3 37.0 - 85.0 % Immature Gran % 0.2 0.0 - 3.0 % Lymph % 23.5 5.0 - 45.0 % [place] % 12.8 3.0 - 15.0 % Eos % 3.6 0.0 - 7.0 % Baso % 1.6 0.0 - 2.0 % Absolute Neuts (auto) 2.9 1.7 - 8.7 x10 3/ul Immature Gran # 0.0 0.0 - 0.3 x10 3/ul Absolute Lymphs (auto) 1.2 0.2 - 4.6 x10 3/ul Absolute Monos (auto) 0.6 0.1 - 1.5 x10 3/ul Absolute Eos (auto) 0.2 0.0 - 0.7 x10 3/ul Absolute Basos (auto) 0.1 0.0 - 0.2 x10 3/ul Nucleat RBC Rel Count 0.0 0 - 3 #/100WBC Absolute Nucleated RBC 0.00 x10 3/ul Absolute Neutrophils 2900 200 - 8000 /ul 03/09/2018 12:1 2 PM CDT 03/09/2018 12:24 PM CDT us Jonny Tomas MD LAB BLOOD ORDERABLES Final Result Performing Organization Address [facility] Co de Phone Number [facility] HISTORICAL RESULTS * (ABNORMAL) Protime-INR (03/09/2018 3:34 AM CDT) PT 18.3(H) 11.8 - 14.5 SECONDS INR 1.49 Comment: Recommended Therapeutic range for Oral Anticoagulant Therapy No anti-coagulation therapy ? Normal Range: ?0.8-1.4 Anti-coagulation therapy ? Low intensity therapy ?2.0-3.0 ? High intensity therapy ?? 2.5-3.5 Critical Value ? Greater than or equal to 5.0 Patients should be monitored for serious bleeding. ?? 03/09/2018 3:34 AM CDT 03/09/2018 3:38 AM CDT us Jonny Tomas MD LAB BLOOD ORDERABLES Final Result Performing Organization Address [facility] Co de Phone Number [facility] HISTORICAL RESULTS * H. pylori antibody, IgG (03/09/2018 3:34 AM CDT) H. pylori IgG NEGATIVE NEGATIVE 03/09/2018 3:34 AM CDT 03/09/2018 3:38 AM CDT us Jonny Tomas MD LAB BLOOD ORDERABLES Final Result [facility] HISTORICAL RESULTS * (ABNORMAL) Comprehensive metabolic panel (03/09/2018 3:34 AM CDT) Sodium 143 135 - 145 mmol/L Potassium 4.1 3.3 - 5.1 mmol/L Chloride 113(H) 96 - 108 mmol/L Carbon Dioxide 24 22 - 32 mmol/L Anion Gap 6(L) 7 - 16 Glucose 116(H) 70 - 100 mg/dL BUN 21(H) 6 - 20 mg/dL Creatinine 0.6 0.5 - 1.3 mg/dL Comment: NOTE: Estimated GFR (Cockroft-Gault) will NOT be calculated unless patient Height and Weight were entered. Also, Kidney Disease Stage (GFR) and Estimated GFR (Cockroft-Gault) will NOT be calculated if Creatinine result is <0.2. Kidney Disease Stage > 90 mL/MIN Comment: NOTE; ??The GFR is an estimated [...] mL/min ? Kidney failure or on dialysis @ Est GFR (Cockcroft-G) 174 ml/MIN Comment: Estimated GFR(Cockroft-Gault)is used to calculate patient medication dosage Calcium 7.9(L) 8.6 - 10.0 mg/dL Total Protein 5.8(L) 6.4 - 8.3 g/dL Albumin 2.6(L) 3.5 - 5.2 g/dL Globulin 3.2 2.3 - 3.5 gm/dL Albumin/Globulin Ratio 0.8(L) 1.1 - 1.8 Total Bilirubin 1.6(H) 0.0 - 1.2 mg/dL AST 102(H) 0 - 40 U/L ALT 32 0 - 41 U/L Alkaline Phosphatase 78 40 - 129 U/L 03/09/2018 3:34 AM CDT 03/09/2018 3:38 AM CDT Jonny Tomas MD LAB BLOOD ORDERABLES Final Result [facility] HISTORICAL RESULTS * (ABNORMAL) CBC with auto differential (03/09/2018 3:34 AM CDT) WBC 4.7 3.5 - 10.5 x10 3/ul 03/09/2018 3:44 AM CDT [facility] HISTORICAL RESULTS Comment:Results reviewed RBC 1.99(L) 4.11 - 5.71 x10 6/ul 03/09/2018 3:44 AM CDT [facility] Medical HISTORICAL RESULTS Comment:Results reviewed Hemoglobin 6.8(LL) 13.0 - 17.0 g/dL 03/09/2018 3:44 AM CDT [facility] HISTORICAL RESULTS Comment: CRITICAL VALUE CALLED and REPEATED. ?? at:0344 03/09/18 by:Anali Fernandez to:JOAN [id number] ?? Hct 21.0(L) 38.2 - 48.5 % 03/09/2018 3:43 AM CDT [facility] HISTORICAL RESULTS MCV 105.5(H) 80.0 - 97.0 fl 03/09/2018 3:43 AM CDT [facility] Medical HISTORICAL RESULTS MCH 34.2(H) 27.0 - 31.2 pg 03/09/2018 3:43 AM CDT [facility] Medical HISTORICAL RESULTS MCHC 32.4 31.8 - 35.4 g/dl 03/09/2018 3:43 AM CDT [facility] Medical HISTORICAL RESULTS RDW 14.1 11.6 - 14.8 % 03/09/2018 3:43 AM CDT [facility] HISTORICAL RESULTS Plt Count 100(L) 150 - 450 X10 3/ul 03/09/2018 3:43 AM CDT [facility] Medical HISTORICAL RESULTS MPV 10.0 7.4 - 10.4 fl 03/09/2018 3:43 AM CDT [facility] Medical HISTORICAL RESULTS Neut % 61.1 37.0 - 85.0 % 03/09/2018 3:43 AM CDT [facility] Medical HISTORICAL RESULTS Immature Gran % 0.2 0.0 - 3.0 % 03/09/2018 3:43 AM CDT [facility] Medical HISTORICAL RESULTS Lymph % 22.6 5.0 - 45.0 % [place] % 11.2 3.0 - 15.0 % Eos % 3.4 0.0 - 7.0 % Baso % 1.5 0.0 - 2.0 % Absolute Neuts (auto) 2.9 1.7 - 8.7 x10 3/ul Immature Gran # 0.0 0.0 - 0.3 x10 3/ul Absolute Lymphs (auto) 1.1 0.2 - 4.6 x10 3/ul Absolute Monos (auto) 0.5 0.1 - 1.5 x10 3/ul Absolute Eos (auto) 0.2 0.0 - 0.7 x10 3/ul Absolute Basos (auto) 0.1 0.0 - 0.2 x10 3/ul Nucleat RBC Rel Count 0.0 0 - 3 #/100WBC Absolute Nucleated RBC 0.00 x10 3/ul Absolute Neutrophils 2900 200 - 8000 /ul 03/09/2018 3:34 AM CDT 03/09/2018 3:38 AM T us Jonny Tomas MD LAB BLOOD ORDERABLES Final Result [facility] HISTORICAL RESULTS * CT Cervical Spine WO Contrast (03/09/2018 12:00 AM CDT) Anatomical Region Laterality Modality Spine N/A Computed Tomogra phy 03/09/2018 Impressions 03/09/2018 11:25 PM CDT ??No acute findings. THIS IS AN ELECTRONICALLY VERIFIED FINAL REPORT 03/09/2018 11:22 PM - Electronically signed by Romel Ambriz M.D. RW D: ??03/09/2018 11:22 PM T: Report ID: [id number] Reading Location: ??[id number] [EOD] Narrative 03/09/2018 11:25 PM CDT EXAM DESCRIPTION: ??CT C-Spine WO IV Contrast REASON FOR STUDY: ??Fall tonight hit head, head hematoma TECHNIQUE: ??Axial images through the cervical spine with sagittal and coronal reformatted images. Automated exposure control was used as a dose optimization technique for this examination. COMPARISON: ??None FINDINGS: ALIGNMENT: Normal. VERTEBRAE: No fracture. Vertebral body heights well-maintained. DISCS: Disc heights well-maintained. HARDWARE: None in the spine. INDIVIDUAL DISC LEVELS: Mild multilevel spondylosis with disc space narrowing endplate osteophytosis and disc bulges throughout the cervical spine. ??No high-grade stenosis. UPPER THORACIC: Incompletely imaged. No significant osseous spinal stenosis or osseous neural foraminal stenosis. SKULL BASE: No significant finding. LUNG APICES: No significant abnormality. NECK SOFT TISSUES: No significant abnormality. OTHER: No other significant findings. Procedure Note Provider, MD Crista - 11/02/2020 EXAM DESCRIPTION: CT C-Spine WO IV Contrast REASON FOR STUDY: Fall tonight hit head, head hematoma TECHNIQUE: Axial images through the cervical spine with sagittal andcoronal reformatted images. Automated exposure control was used as a doseoptimization technique for this examination. COMPARISON: None FINDINGS: ALIGNMENT: Normal. VERTEBRAE: No fracture. Vertebral body heights well-maintained. DISCS: Disc heights well-maintained. HARDWARE: None in the spine. INDIVIDUAL DISC LEVELS: Mild multilevel spondylosis with disc spacenarrowing endplate osteophytosis and disc bulges throughout the cervical spine. No high-grade stenosis. UPPER THORACIC: Incompletely imaged. No significant osseous spinalstenosis or osseous neural foraminal stenosis. SKULL BASE: No significant finding. LUNG APICES: No significant abnormality. NECK SOFT TISSUES: No significant abnormality. OTHER: No other significant findings. IMPRESSION: No acute findings. THIS IS AN ELECTRONICALLY VERIFIED FINAL REPORT 03/09/2018 11:22 PM - Electronically signed by Romel Ambriz M.D. RW T: Report ID: [id number] Reading Location: [id number] [EOD] us Lia Valladares MD IMG CT PROCEDURES Final Resul t * CT Head WO Contrast (03/09/2018 12:00 AM CDT) Anatomical Region Laterality Modality Head and Neck N/A Computed Tomogra phy 03/09/2018 Impressions 03/09/2018 11:28 PM CDT ??No acute intracranial findings. THIS IS AN ELECTRONICALLY VERIFIED FINAL REPORT 03/09/2018 11:26 PM - Electronically signed by Romel DIXON D: ??03/09/2018 11:26 PM T: Report ID: [id number] Reading Location: ??[id number] [EOD] Narrative 03/09/2018 11:28 PM CDT EXAM DESCRIPTION: ??CT Head WO IV Contrast REASON FOR STUDY: ??Fall tonight hit head scalp hematoma ?? TECHNIQUE: ??Axial images acquired through the brain without intravenous contrast. ??Images stored on PACS. Automated exposure control was used as a dose optimization technique for this examination. COMPARISON: ??None FINDINGS: BRAIN: No hemorrhage, edema or mass effect. No recent infarct. Normal white matter. EXTRA-AXIAL SPACES: No fluid collections. No masses. CALVARIUM: No fracture. PARANASAL SINUSES AND MASTOIDS: No fluid or mucosal thickening. ORBITS: No significant abnormality. OTHER: Old-appearing fractures of the nasal bone. Procedure Note Provider, MD Crista - 11/02/2020 EXAM DESCRIPTION: CT Head WO IV Contrast REASON FOR STUDY: Fall tonight hit head scalp hematoma TECHNIQUE: Axial images acquired through the brain without intravenous contrast. Images stored on PACS. Automated exposure control was used as a dose optimization technique for this examination. COMPARISON: None FINDINGS: BRAIN: No hemorrhage, edema or mass effect. No recent infarct. Normalwhite matter. EXTRA-AXIAL SPACES: No fluid collections. No masses. CALVARIUM: No fracture. PARANASAL SINUSES AND MASTOIDS: No fluid or mucosal thickening. ORBITS: No significant abnormality. OTHER: Old-appearing fractures of the nasal bone. IMPRESSION: No acute intracranial findings. THIS IS AN ELECTRONICALLY VERIFIED FINAL REPORT 03/09/2018 11:26 PM - Electronically signed by Romel Ambriz M.D. RW T: Report ID: [id number] Reading Location: [id number] [id number] [EOD] Lia Valladares MD IMG CT PROCEDURES Final Resul t * (ABNORMAL) Hemoglobin and hematocrit (03/08/2018 9:52 PM CDT) Pathologist [facility] Hemoglobin 7.6(L) 13.0 - 17.0 g/dL Hct 23.2(L) 38.2 - 48.5 % 03/08/2018 9:52 PM CDT 03/08/2018 10:07 PM CDT Jonny Tomas MD LAB BLOOD ORDERABLES Final Result [facility] HISTORICAL RESULTS * MRSA PCR, surveillance (03/08/2018 11:15 AM CDT) Pathologist [facility] MRSA Surveill Initial MRSA NEGATIVE NEGATIVE Comment:MRSA target DNA sequ ences are not detected. 03/08/2018 11:1 5 AM CDT 03/08/2018 11:25 AM CDT Narrative [facility] HISTORICAL RESULTS - 03/08/2018 12:39 PM CDT Collected By gl Soha Spangler DO LAB MICROBIOLOGY - GENERAL ORDERABLES Final Result [facility] HISTORICAL RESULTS * (ABNORMAL) Comprehensive metabolic panel (03/08/2018 10:40 AM CDT) Sodium 139 135 - 145 mmol/L Potassium 4.7 3.3 - 5.1 mmol/L Chloride 108 96 - 108 mmol/L Carbon Dioxide 25 22 - 32 mmol/L Anion Gap 6(L) 7 - 16 Glucose 131(H) 70 - 100 mg/dL BUN 21(H) 6 - 20 mg/dL Creatinine 0.4(L) 0.5 - 1.3 mg/dL Comment: NOTE: Estimated GFR (Cockroft-Gault) will NOT be calculated unless patient Height and Weight were entered. Also, Kidney Disease Stage (GFR) and Estimated GFR (Cockroft-Gault) will NOT be calculated if Creatinine result is <0.2. Kidney Disease Stage > 90 mL/MIN Comment: NOTE; ??The GFR is an estimated [...] mL/min ? Kidney failure or on dialysis @ Est GFR (Cockcroft-G) 262 ml/MIN 03/08/2018 11:13 AM [facility] HISTOR[facility] RESULTS Comment: Estimated GFR(Cockroft-Gault)is used to calculate patient medication dosage Calcium 8.2(L) 8.6 - 10.0 mg/dL 03/08/2018 11:13 AM [facility] HISTORICAL RESULTS Total Protein 6.3(L) 6.4 - 8.3 g/dL 03/08/2018 11:13 AM [facility] HISTORICAL RESULTS Albumin 2.7(L) 3.5 - 5.2 g/dL Globulin 3.6(H) 2.3 - 3.5 gm/dL 03/08/2018 11:13 AM [facility] HISTORICAL RESULTS Albumin/Globulin Ratio 0.8(L) 1.1 - 1.8 Total Bilirubin 1.4(H) 0.0 - 1.2 mg/dL 03/08/2018 11:13 AM [facility] [employer] [facility] HISTORICAL RESULTS AST 141(H) 0 - 40 U/L 03/08/2018 11:14 AM [facility] HISTORICAL RESULTS Comment: MODERATELY HEMOLYZED: Hemolysis interferes with the above test. ALT 43(H) 0 - 41 U/L 03/08/2018 11:13 AM [facility] [employer] [facility] HISTORICAL RESULTS Alkaline Phosphatase 98 40 - 129 U/L 03/08/2018 11:13 AM [facility] HISTORICAL RESULTS 03/08/2018 10:4 0 AM CDT 03/08/2018 10:42 AM CDT Jonny Greggrupa Mitzy Tomas MD LAB BLOOD ORDERABLES Final Result [facility] HISTORICAL RESULTS * (ABNORMAL) Hepatitis panel, acute (03/08/2018 10:39 AM CDT) HepBsAg NONREACT NONREACTIVE Comment: [employer] using CHRISTOPHER (chemiluminescent immunoassay) technology. NONREACTIVE: IgM antibodies to Hepatitis B Surface antigen not detected. REACTIVE: IgM antibodies to Hepatitis B Surface antigen detected. Reactive results will be confirmed by neutralization testing. HBsAb qn 5.10 mIU/mL Comment: [employer] using CHRISTOPHER (chemiluminescent immunoassay) technology. 9.99 IU/L or less.....NONREACTIVE: IgM antibodies to ? Hepatitis B Surface antibody are not detected. 10.00 IU/L or greater..REACTIVE: IgM antibodies to Hepatitis B Surface antibody are detected. Hep B core IgM NONREACT NONREACTIVE 8 12:03 PM T [facility] HISTORICAL RESULTS Comment: [employer] using CHRISTOPHER (chemiluminescent immunoassay) technology. NONREACTIVE: IgM antibodies to Hepatitis B Core antigen not detected. EQUIVOCAL: IgM antibodies to Hepatitis B Core antigen may or may not be present. Obtain a ??new specimen and retest. REACTIVE: IgM antibodies to Hepatitis B Core antigen detected. Hep A IgM NONREACT NONREACTIVE Comment: [employer] using CHRISTOPHER (chemiluminescent immunoassay) technology. NONREACTIVE: IgM antibodies to Hepatitis A not detected. This does not exclude possibility of exposure to Hepatitis A or early acute infection. EQUIVOCAL:IgM antibodies to Hepatitis A may or may not be present. Suggest recollection and retest. REACTIVE: Antibodies to Hepatitis A detected. Hep C Ab REACTIVE(H) NONREACTIVE Comment: [employer] using CHRISTOPHER (chemiluminescent immunoassay) technology. NONREACTIVE: Antibodies [...] PCR method. REACTIVE: Antibodies to Hepatitis C detected. Hepatitis C Virus Note 03/08/2018 12:08 PM T [facility] [employer] HISTORICAL RESULTS Comment:NO CONFIRMATION TEST ING REQUIRED DUE TO HIGH REACTIVITY. 03/08/2018 10:3 9 AM CDT 03/08/2018 10:42 AM CDT Jonny alas MD LAB MICROBIOLOGY - GENERAL ORDERABLES Final Result [facility] HISTORICAL RESULTS * (ABNORMAL) CBC with auto differential (03/08/2018 10:39 AM CDT) WBC 6.8 3.5 - 10.5 x10 3/ul 03/08/2018 10:52 AM T [facility] [employer] HISTORICAL RESULTS Comment:Results reviewed RBC 2.62(L) 4.11 - 5.71 x10 6/ul 03/08/2018 10:52 AM T [facility] [employer] HISTORICAL RESULTS Hemoglobin 8.9(L) 13.0 - 17.0 g/dL 03/08/2018 10:52 AM [facility] [employer] HISTORICAL RESULTS Hct 27.4(L) 38.2 - 48.5 % 03/08/2018 10:52 AM T [facility] [employer] HISTORICAL RESULTS MCV 104.6(H) 80.0 - 97.0 fl 03/08/2018 10:52 AM [facility] [employer] HISTORICAL RESULTS MCH 34.0(H) 27.0 - 31.2 pg 03/08/2018 10:52 AM [facility] [employer] HISTORICAL RESULTS MCHC 32.5 31.8 - 35.4 g/dl 03/08/2018 10:52 AM [facility] [employer] HISTORICAL RESULTS RDW 14.2 11.6 - 14.8 % Plt Count 130(L) 150 - 450 X10 3/ul MPV 10.5(H) 7.4 - 10.4 fl Neut % 65.9 37.0 - 85.0 % Immature Gran % 0.3 0.0 - 3.0 % Lymph % 17.0 5.0 - 45.0 % [place] % 14.6 3.0 - 15.0 % Eos % 0.7 0.0 - 7.0 % Baso % 1.5 0.0 - 2.0 % Absolute Neuts (auto) 4.5 1.7 - 8.7 x10 3/ul Immature Gran # 0.0 0.0 - 0.3 x10 3/ul Absolute Lymphs (auto) 1.2 0.2 - 4.6 x10 3/ul Absolute Monos (auto) 1.0 0.1 - 1.5 x10 3/ul Absolute Eos (auto) 0.1 0.0 - 0.7 x10 3/ul Absolute Basos (auto) 0.1 0.0 - 0.2 x10 3/ul Nucleat RBC Rel Count 0.0 0 - 3 #/100WBC Absolute Nucleated RBC 0.00 x10 3/ul Absolute Neutrophils 4500 200 - 8000 /ul 03/08/2018 10:3 9 AM CDT 03/08/2018 10:42 AM CDT Jonny Tomas MD LAB BLOOD ORDERABLES Final Result Performing Organization Address [facility]/State/ZIP Co de Phone Number [facility] HISTORICAL RESULTS * Ethanol (03/08/2018 6:47 AM CDT) Ethyl Alcohol 18 mg/dL Comment:% = mg/dL x .001 03/08/2018 6:47 AM CDT 03/08/2018 6:51 AM CDT Soha Spangler DO LAB BLOOD ORDERABLES Final Result [facility] HISTORICAL RESULTS * (ABNORMAL) Protime-INR (03/08/2018 6:47 AM CDT) PT 17.7(H) 11.8 - 14.5 SECONDS INR 1.44 Comment: Recommended Therapeutic range for Oral Anticoagulant Therapy No anti-coagulation therapy ? Normal Range: ?0.8-1.4 Anti-coagulation therapy ? Low intensity therapy ?2.0-3.0 ? High intensity therapy ?? 2.5-3.5 Critical Value ? Greater than or equal to 5.0 Patients should be monitored for serious bleeding. ?? 03/08/2018 6:47 AM CDT 03/08/2018 6:51 AM CDT Soha Spangler DO LAB BLOOD ORDERABLES Final Result Performing Organization Address City/[facility] Co de Phone Number [facility] HISTORICAL RESULTS * (ABNORMAL) aPTT (03/08/2018 6:47 AM CDT) APTT 36(H) 26 - 33 SECONDS 03/08/2018 6:47 AM CDT 03/08/2018 6:51 AM CDT Soha Spangler DO LAB BLOOD ORDERABLES Final Result Performing Organization Address [facility] Phone Number [facility] HISTORICAL RESULTS * (ABNORMAL) Comprehensive metabolic panel (03/08/2018 6:47 AM CDT) Sodium 139 135 - 145 mmol/L Potassium 3.8 3.3 - 5.1 mmol/L Chloride 106 96 - 108 mmol/L Carbon Dioxide 25 22 - 32 mmol/L Anion Gap 8 7 - 16 Glucose 114(H) 70 - 100 mg/dL BUN 19 6 - 20 mg/dL Creatinine 0.4(L) 0.5 - 1.3 mg/dL Comment: NOTE: Estimated GFR (Cockroft-Gault) will NOT be calculated unless patient Height and Weight were entered. Also, Kidney Disease Stage (GFR) and Estimated GFR (Cockroft-Gault) will NOT be calculated if Creatinine result is <0.2. Kidney Disease Stage > 90 mL/MIN 03/08/2018 7:29 AM [facility] [employer] HISTORICAL RESULTS Comment: NOTE; ??The GFR is an estimated [...] mL/min ? Kidney failure or on dialysis @ Est GFR (Cockcroft-G) 262 ml/MIN 03/08/2018 7:29 AM [employer] [facility] HISTORICAL RESULTS Comment: Estimated GFR(Cockroft-Gault)is used to calculate patient medication dosage Calcium 8.3(L) 8.6 - 10.0 mg/dL 03/08/2018 7:29 AM [facility] [employer] HISTORICAL RESULTS Total Protein 6.5 6.4 - 8.3 g/dL 03/08/2018 7:29 AM [facility] HISTORICAL RESULTS Albumin 2.8(L) 3.5 - 5.2 g/dL 03/08/2018 7:29 AM [facility] [employer] HISTORICAL RESULTS Globulin 3.7(H) 2.3 - 3.5 gm/dL 03/08/2018 7:29 AM [facility] [employer] [facility] HISTORICAL RESULTS Albumin/Globulin Ratio 0.8(L) 1.1 - 1.8 03/08/2018 7:29 AM [facility] [employer] [facility] HISTORICAL RESULTS Total Bilirubin 1.4(H) 0.0 - 1.2 mg/dL AST 145(H) 0 - 40 U/L ALT 45(H) 0 - 41 U/L Alkaline Phosphatase 110 40 - 129 U/L 03/08/2018 6:47 AM CDT 03/08/2018 6:51 AM CDT us Soha Spangler DO LAB BLOOD ORDERABLES Final Result [facility] HISTORICAL RESULTS * (ABNORMAL) CBC with auto differential (03/08/2018 6:47 AM CDT) WBC 5.0 3.5 - 10.5 x10 3/ul RBC 2.87(L) 4.11 - 5.71 x10 6/ul Hemoglobin 9.9(L) 13.0 - 17.0 g/dL Hct 29.8(L) 38.2 - 48.5 % MCV 103.8(H) 80.0 - 97.0 fl MCH 34.5(H) 27.0 - 31.2 pg MCHC 33.2 31.8 - 35.4 g/dl RDW 14.2 11.6 - 14.8 % Plt Count 101(L) 150 - 450 X10 3/ul MPV 10.0 7.4 - 10.4 fl Neut % 62.2 37.0 - 85.0 % Immature Gran % 0.2 0.0 - 3.0 % Lymph % 18.7 5.0 - 45.0 % [place] % 15.9(H) 3.0 - 15.0 % Eos % 1.6 0.0 - 7.0 % Baso % 1.4 0.0 - 2.0 % Absolute Neuts (auto) 3.1 1.7 - 8.7 x10 3/ul Immature Gran # 0.0 0.0 - 0.3 x10 3/ul Absolute Lymphs (auto) 0.9 0.2 - 4.6 x10 3/ul Absolute Monos (auto) 0.8 0.1 - 1.5 x10 3/ul Absolute Eos (auto) 0.1 0.0 - 0.7 x10 3/ul Absolute Basos (auto) 0.1 0.0 - 0.2 x10 3/ul Nucleat RBC Rel Count 0.0 0 - 3 #/100WBC Absolute Nucleated RBC 0.00 x10 3/ul Absolute Neutrophils 3100 200 - 8000 /ul 03/08/2018 6:47 AM CDT 03/08/2018 6:51 AM CDT Soha Spangler DO LAB BLOOD ORDERABLES Final Result [facility] HISTORICAL RESULTS * XR Chest 1 View (03/08/2018 12:00 AM CDT) Anatomical Region Laterality Modality Body, Chest N/A Radiographic Lynette ging 03/08/2018 Impressions 03/08/2018 7:19 AM CDT ??No acute cardiopulmonary disease. THIS IS AN ELECTRONICALLY VERIFIED FINAL REPORT 03/08/2018 7:16 AM - Electronically signed by Oskar Stephens M.D. MI D: ??03/08/2018 7:16 AM T: Report ID: [id number] Reading Location: ??[id number] [EOD] Narrative 03/08/2018 7:19 AM CDT EXAM DESCRIPTION: ??Chest 1 View Portable REASON FOR STUDY: ??Dizziness, heavy cough,productive,whitex3 days TECHNIQUE: ??Frontal radiographic view of the chest acquired. COMPARISON: ??None FINDINGS: LUNGS/PLEURA: No focal consolidation or pneumothorax. No pleural effusion. HEART/MEDIASTINUM: Heart size is normal. Normal mediastinal and hilar contours. HARDWARE/LINES/TUBES: None. BONES: No acute findings. OTHER: No other significant finding. Procedure Note Provider, MD Crista - 11/02/2020 EXAM DESCRIPTION: Chest 1 View Portable REASON FOR STUDY: Dizziness, heavy cough,productive,whitex3 days TECHNIQUE: Frontal radiographic view of the chest acquired. COMPARISON: None FINDINGS: LUNGS/PLEURA: No focal consolidation or pneumothorax. No pleuraleffusion. HEART/MEDIASTINUM: Heart size is normal. Normal mediastinal and hilarcontours. HARDWARE/LINES/TUBES: None. BONES: No acute findings. OTHER: No other significant finding. IMPRESSION: No acute cardiopulmonary disease. THIS IS AN ELECTRONICALLY VERIFIED FINAL REPORT 03/08/2018 7:16 AM - Electronically signed by Oskar PANIAGUA T: Report ID: [id number] Reading Location: [id number] [EOD] Soha Spangler DO IMG XR PROCEDURES Final Res ult documented in this encounter Visit Diagnoses Diagnosis Alcoholic cirrhosis of liver with ascites (CMS/HCC) (HCC) Secondary esophageal varices with bleeding (CMS/HCC) (HCC) Portal hypertension (CMS/HCC) (HCC) Portal hypertension Gastro-esophageal reflux disease without esophagitis Anxiety disorder Anxiety state, unspecified Bipolar disorder (HCC) Bipolar disorder, unspecified Cigarette nicotine dependence, uncomplicated Cocaine abuse, uncomplicated (CMS/HCC) (HCC) documented in this encounter Additional Health Concerns Infection Onset Date Last Indicated Resolved Time 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
--- OUTSIDE RECORDS SUMMARY | 2024-06-27 04:56 | XMS_ITS | Encounter Summary ---
Author Organization [facility] Healthcare Address [address] [place] [address] Care Team Providers Care [employer] Worker Name Role Phone No, Physician Primary Care Provider [phone] Encounter Details Date Type Department Care Team (Latest Contact Info) Description 02/22/2019 11:10 AM CDT - 02/22/2019 11:59 PM CDT Hospital Encounter [facility] [address] [place] [address] Leonel Stauffer MD [address] [place] [address] Discharge Disposition: Discharge to home or self [...] encounter Medications at Time of Discharge acetaminophen 500 mg capsule Take 1 capsule (500 mg total) by mouth every 6 (six) hours as needed for pain 30 tablet 02/25/2019 06/20/2021 amLODIPine (NORVASC) 5 mg tablet 5 mg 03/08/2018 05/27/2020 ARIPiprazole (ABILIFY) 10 mg tablet 10/25/2018 03/03/2019 folic acid (FOLVITE) 1 mg tablet Take 1 tablet (1 mg total) by mouth daily 30 tablet 02/26/2019 03/03/2019 lamoTRIgine (LaMICtal) 25 mg tablet 10/25/2018 03/03/2019 nadolol (CORGARD) 20 mg tablet Take 1 tablet (20 mg total) by mouth daily 30 tablet 02/26/2019 03/03/2019 nicotine (NICODERM CQ) 14 mgIndications:Salazar otine D[facility] 1 patch on the skin daily 30 patch 02/26/2019 03/03/[address] (PROTONIX) 40 mg EC tablet Take 1 tablet (40 mg total) by mouth 2 (two) times a day 60 tablet 02/25/2019 03/03/2019 QUEtiapine XR (SEROquel XR) 300 mg 24 hr tablet 300 mg 03/08/2018 0 thiamine (VITAMIN B-1) 50 mg tablet Take 1 tablet (50 mg total) by mouth daily 30 tablet 02/26/2019 03/03/2019 zolpidem (AMBIEN) 10 mg tablet 10 mg 03/08/2018 05/27/2020 documented as of this encounter Discharge Disposition Disposition Code Departure Means Destination Discharge to home or self care documented in this encounter Plan of Treatment Not on file documented as of this encounter Procedures Procedure Name Priority Date/Time Associated Diagnosis Comments TRANSTHORACIC ECHO (TTE) COMPLETE W DOPPLER/CF WO CONTRAST Routine 02/22/2019 11:57 AM CDT documented in this encounter Visit Diagnoses Not on filedocumented in this encounter Orders Medications Ordered That Salo ht Not Have Been Administered Count Last Ordered Date First Ordered Date perflutren protein-a (OPTISO N) 3 mL in sodium chloride 0.9% 8 mL syringe 1 02/22/2019 documented in this encounter Additional Health Concerns Infection Onset Date Last Indicated Resolved Time 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
--- OUTSIDE RECORDS SUMMARY | 2024-06-27 04:56 | XMS_ITS | Encounter Summary ---
Author Organization [facility] Facility Care Team Providers Care [employer] Former Supervisor Name Role Phone No, Physician Primary Care Provider [phone] Encounter Details Date Type Department Care Team (Latest Contact Info) Description 02/21/2019 Travel Social History Tobacco Use Types Packs/Day [...] documented as of this encounter Care Teams [employer] Former Supervisor Relationship Specialty Start Date End Date No, Physician PCP - General 02/21/19 03/01/19 documented as of this encounter
--- OUTSIDE RECORDS SUMMARY | 2024-06-27 04:56 | XMS_ITS | Encounter Summary ---
Author Organization [facility] Healthcare Address [address] [place] [address] Care Team Providers Care Seat Trimmer Name Role Phone No, Physician Primary Care Provider [phone] Encounter Details Date Type Department Care Team (Late st Contact Info) Description 02/21/2019 5:40 AM CDT - 02/25/2019 3:10 PM CDT Hospital Encounter [facility] [address] [place] [address] Benson Perez MD PhD [address] [facility] [address] [place] [address] Carlos Rojo MD [phone] [place] [address] Tanya Gant MD [address] [facility] [address] [place] [address] Colleen Damon MD [address] [place] [address] [address] [place] [address] Hematemesis, presence of nausea not specified (Primary Dx) Discharge Disposition: Discharge to home or self [...] Sign Reading Time Taken Comments Blood Pressure 112/61 02/25/2019 11:45 AM CDT Pulse 62 02/25/2019 11:45 AM CDT Temperature 36.7 ??C (98.1 ??F) 02/25/2019 11:25 AM C DT Respiratory Rate 18 02/25/2019 11:25 AM CDT Oxygen Saturation 100% 02/25/2019 11:45 AM CDT Inhaled Oxygen Concentration - - Weight 85.7 kg (188 lb 15 oz) 02/21/2019 5:48 AM CDT Height 182.9 cm (6') 02/21/2019 5:48 AM CDT Body Mass Index 25.62 02/21/2019 5:48 AM CDT documented in this encounter Discharge Diagnoses Diagnosis Alcoholic cirrhosis of liver without ascites (CMS/HCC) (HCC) - ALCOHOLIC CIRRHOSIS OF LIVER WITHOUT ASCITES Secondary esophageal varices with bleeding (CMS/HCC) (HCC) - SECONDARY ESOPHAGEAL VARICES WITH BLEEDING Portal hypertension (CMS/HCC) (HCC) - PORTAL HYPERTENSION Portal hypertension Viral hepatitis C without hepatic coma - UNSPECIFIED VIRAL HEPATITIS C WITHOUT HEPATIC COMA Other diseases of stomach and duodenum - OTHER DISEASES OF STOMACH AND DUODENUM Fatty (change of) liver, not elsewhere classified - FATTY (CHANGE OF) LIVER, NOT ELSEWHERE CLASSIFIED Cocaine abuse, uncomplicated (CMS/HCC) (HCC) - COCAINE ABUSE, UNCOMPLICATED Cannabis abuse, uncomplicated - CANNABIS ABUSE, UNCOMPLICATED documented in this encounter Discharge Summaries * Juancho Rodriguez MD - 02/25/2019 12:09 PM CDT Inpatient Discharge Summary BRIEF OVERVIEW Admitting Provider: Tanya Gant MD Discharge Provider: Colleen Damon MD Primary Care Physician at Discharge: Physician No [phone] Admission Date: 02/21/2019 Discharge Date: 02/25/2019 Admission Location: [facility] Primary Discharge Diagnosis: Upper GI Bleed likely Secondary to Esophageal Varices Secondary Discharge Diagnosis: Hematemesis Hematochezia Cirrhosis (CMS/HCC) Polysubstance abuse (CMS/HCC) Hepatitis C DETAILS OF HOSPITAL STAY Presenting Problem/History of Present Illness: Chester Dubose is a 48 y.o. male with PMH of cirrhosis, active Hep C infection (treated at OSH, duration and status unknown), s/p ORIF for distal radius fracture 09/2018 at OSH. Per outside recordshe also has a history of previous suicide attempt and delirium tremens without seizures. ?? He presented to [facility] following 4 episodes of hematemesis and 4 episodes of melenic stools beginning two days ago (PMH largely unknown as patient does not regularly follow with doctor). Per patient, the emesis was bright red in color (per [facility], 100cc of emesis) and stools were dark in color concerningfor blood. ?? He drinks 6 24oz beers daily (last drink 02/19/19). Patient denies hard EtOH use, as it makes him violent. He smokes marijuana daily (last used 02/19/19), and smoked cocaine 6-8 months ago. Denies IVDU. Further history is difficult to obtain as he is somnolent and wanting to sleep. ?? Of note, Patient INR 1.5 and Hb 11.6 (repeat 11.1) at [facility]. CT A/P was consistent with cirrhosis andportal hypertension. At [facility], patient was started on a Protonix gtt, Octreotide gtt, and NS 100cc/hr. He also received 4mg Ativan for EtOH withdrawal and Compazine/Zofran for nausea. At arrival to [facility], patient has 2 PIV (18g, 20g) for access. CT scan of the abdomen and pelvis demonstrated findin gs consistent with esophageal varices / portal HTN, possible pancreatitis, and gastroduodenitis. Hospital Course: GI Bleed Reported hematemesis and hematochezia at home prior to OSH presentation. CT at OSH reportedly with e/o esophageal varices. While here, he had small bloody BM 02/21. No e/o hematemesis, only ongoing retching and some non bloody emesis. Pt was started on octreotide gtt, CTX and IV PPI. Kept NPO initially. Hgb remained stable ~9 and pt was hungry, so was allowed to advance to clear liquid diet on 02/22,tolerated well. GI saw pt; he was started on PPI, octreotide, and ceftriaxone. Given his stable clinical status performed EGD on 02/24, which was notable for esophageal varices without any obvious stigmata of bleeding. Due to lack of alternative etiology, this was presumed to be the source. Two varices were banded. Of note, 1/2 bcx bottles from 02/21 grew likely coag neg staph. May be contaminant as pt looks well otherwise. Repeat bcx x 2 unremarkable. He was started on nadolol 20mg daily followingEGD for variceal prophylaxis. He should follow up with EGD in 4 weeks, to be arranged by GI team. Medications were sent to his local pharmacy in [place], [place]. 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 No e/o ascites. NH3 115 here but pt remained aox3 without encephalopathy. Lipase wnl. CT at OSH reportedly with e/o esophageal varices. RUQ with dopplers here showed steatosis and cirrhosis, no portal vein thrombosis. Social work was consulted to address smoking cessation and provided the patient with resources, he was started on a nicotine patch. Follow-up with GI was arranged. Hepatitis C Per OSH records followed by a GI physician Dr. Douglas and treated for this. Current status unkown. Hepatitis panel drawn here: HAV Ab neg. Pt is HBV non-immune. HCV Ab +. Alcohol use disorder/Polysubstance abuse Last drink 02/20. UDS+ opiates, cannabinoid. Reports has previously experienced withdrawals with delirium tremens but no seizures. Pt had PRN Ativan ordered; he did not exhibit any signs or symptoms concerning for DT. Active Issues Requiring Follow-up: Confirm Hep C treatment Administer Hep B Vaccine Alcohol use Test Results Pending at Discharge: Order Current Status Blood culture Blood Preliminary result Blood culture Blood Preliminary result Blood culture Blood Preliminary result Blood culture Blood Preliminary result Operative Procedures Performed: Procedure(s): ESOPHAGOGASTRODUODENOSCOPY BAND LIGATION Other Procedures: N/A Pertinent Test Results: Us Liver W Complete Doppler (c) Result Date: 02/21/2019 1. Diffuse hepatic steatosis and cirrhosis. 2. Retrograde portal flow without portal vein thrombosis. TTE (02/22/2019) LV cavity size is normal. Normal LV wall thickness/mass. LVEF = 73%. LA is normal. Normal RV cavity size and function. Normal Inferior vena cava. Normal aorta. No AR seen, No MR seen, no , no MS, normal TV, normal PV. Diastolic function: Inconsistent. No previous examinations are available for comparison. Discharge Details Physical Exam at Discharge: Discharge Condition: good Pulse: 62 Resp: 18 BP: 112/61 Temp: 36.7 ??C (98.1 ??F) Weight: 85.7 kg (188 lb 15 oz) Pertinent Exam Findings at Discharge: BP 112/61 (BP Location: Left arm, Patient Position: Sitting) Pulse 62 Temp 36.7 ??C (98.1 ??F) (Oral) Resp 18 Ht 182.9 cm (6') Wt 85.7 kg (188 lb 15 oz) SpO2 100% BMI 25.62 kg/m?? Constitutional: He is oriented to person, place, and time. He appears well- developed and well-nourished. HENT: Head: Normocephalic and atraumatic. Eyes: Pupils are equal, round, and reactive to light. EOM are normal. Neck: Normal range of motion. Neck supple. Cardiovascular: Normal rate, regular rhythm, normal heart sounds and intact distal pulses. Exam reveals no gallop and no friction rub. No murmur heard. Pulmonary/Chest: Effort normal and breath sounds normal. No respiratory distress. He has no wheezes. He has no rales. Abdominal: Soft. He exhibits distension. There is no tenderness. There is no guarding. Musculoskeletal: Normal range of motion. He exhibits no edema. Lymphadenopathy: He has no cervical adenopathy. Neurological: He is alert and oriented to person, place, and time. No cranial nerve deficit. Skin: Skin is warm and dry. Capillary refill takes less than 2 seconds. Discharge Disposition: Code Status at Discharge: Full code Discharge Instructions: Activity Instructions Discharge activity: Resume normal activity You were admitted for a bleed in your gastrointestinal tract which was causing you to vomit blood. While here, you were given antibiotics to reduce the risk of infection given your GI bleed. You had an ultrasound of your abdomen, and your liver appeared cirrhotic (scarred from damage over time). You should follow up with a PCP (appointment on 02/28, as detailed below) to discuss ongoing care needs. It is vital that you utilize the resources provided by your social worker clinical to abstain from alcohol. You should continue taking the nadolol (a medication to reduce the pressure in your esophageal vessels) and follow up with GI to discuss dose adjustments. You will have a repeat of the procedure where your esophagus is examined with a camera in four weeks to evaluate the clips that were placed. You should also obtain a vaccination against Hepatitis B. Diet Instructions Adult Discharge Diet Diet Type: Return to previous diet Other Instructions Call provider for: Temperature -Temperature greater than 101 degrees F Call provider for: difficulty breathing or chest pain Call provider for: extreme fatigue Call provider for: persistent dizziness or light-headedness Call provider for: persistent nausea or vomiting Call provider for: redness, tenderness, or signs of infection (pain, swelling, redness, odor or green/yellow discharge around incision site) Call provider for: severe uncontrolled pain Call provider for: headache, visual disturbances, weakness and speech changes Discharge Medications: Current Medications TAKE these medications acetaminophen 500 mg capsule Take 1 capsule (500 mg total) by mouth every 6 (six) hours as needed for pain folic acid 1 mg tablet Commonly known as: FOLVITE Take 1 tablet (1 mg total) by mouth daily Start taking on: 02/26/2019 nadolol 20 mg tablet Commonly known as: CORGARD Take 1 tablet (20 mg total) by mouth daily Start taking on: 02/26/2019 nicotine 14 mg Commonly known as: NICODERM CQ Place 1 patch on the skin daily Start taking on: 02/26/[address] 40 mg EC tablet Commonly known as: PROTONIX Take 1 tablet (40 mg total) by mouth 2 (two) times a day thiamine 50 mg tablet Commonly known as: VITAMIN B-1 Take 1 tablet (50 mg total) by mouth daily Start taking on: 02/26/2019 Outpatient Follow-Up: Future Appointments Date Time Provider Department Center 02/28/2019 1:45 PM Ainsley Mcfarland MD [facility] Contact Information for Follow-ups Gastroententerology Specialty: Gastroenterology No address on file Next Steps: Follow up Instructions: You will follow up with upper GI scope in about 4 weeks, the gasteroenterology (stomach doctors) will call you to schedule follow-up Questions: Instructions for follow-up: You will follow up with upper GI scope in about 4 weeks, the gasteroenterology (stomach doctors) will call you to schedule follow-up documented in this encounter Discharge Instructions * Discharge Instructions* Juancho Rodriguez MD - 02/25/2019 2:40 PM CDT You were admitted for a bleed in your gastrointestinal tract which was causing you to vomit blood. While here, you were given antibiotics to reduce the risk of infection given your GI bleed. You had an ultrasound of your abdomen, and your liver appeared cirrhotic (scarred from damage over time). You should follow up with a PCP (appointment on 02/28, as detailed below) to discuss ongoing care needs. It is vital that you utilize the resources provided by your social worker clinical to abstain from alcohol. You should continue taking the nadolol (a medication to reduce the pressure in your esophageal vessels) and follow up with GI to discuss dose adjustments. You will have a repeat of the procedure where your esophagus is examined with a camera in four weeks to evaluate the clips that were placed. You should also obtain a vaccination against Hepatitis B. documented in this encounter Medications at Time [...] 03/08/2018 05/27/2020 documented as of this encounter Ordered Prescriptions Prescription Sig Dispense Quantity Refills Last Filled Start Date End Date nadolol (CORGARD) 20 mg tablet Take 1 tablet (20 mg total) by mouth daily 30 tablet 02/26/2019 9 thiamine (VITAMIN B-1) 50 mg tablet Take 1 tablet (50 mg total) by mouth daily 30 tablet 02/26/[address] (PROTONIX) 40 mg EC tablet Take 1 tablet (40 mg total) by mouth 2 (two) times a day 60 tablet 02/25/2019 9 nicotine (NICODERM CQ) 14 mgIndications:Neftaly valente [facility] Place 1 patch on the skin daily 30 patch 02/26/2019 9 folic acid (FOLVITE) 1 mg tablet Take 1 tablet (1 mg total) by mouth daily 30 tablet 02/26/2019 9 acetaminophen 500 mg capsule Take 1 capsule (500 mg total) by mouth every 6 (six) hours as needed for pain 30 tablet 02/25/2019 2 documented in this encounter Discharge Disposition Disposition Code Departure Means Destination Discharge to home or self care documented in this encounter Progress Notes * Atul Valadez, PT - 02/25/2019 1:36 PM CDT Physical Therapy As supervising therapist, I agree with all information documented this date by PT student Aminata Santillan. Atul Valadez, PT, DPT, 02/25/19 * Juancho Rodriguez MD - 02/25/2019 11:54 AM CDT Daily Progress Note Medicine FIRM Name: Chester Dubose Today: February 25, 2019 : 1970 Age: 48 y.o. male Admit: 02/21/2019 Bed: [id number] Subjective Chief complaint: GI Bleed Interval History: Patient had no acute events overnight - he has used 3 mg of Ativan in last 24 hours. He has not had any episodes of emesis or bloody stool. He was started on a beta sparkle last night which has been well-tolerated. Has been tolerating diet - ate breakfast this morning. No headache, chest pain, shortness of breath, nausea / vomiting Objective Medications: Scheduled: cefTRIAXone 1,000 mg intravenous Q24H FANNY folic acid 1 mg oral Daily nadolol 20 mg oral Daily nicotine 1 patch transdermal Daily pantoprazole 40 mg intravenous BID sodium chloride 0.9% 0.5-20 mL intra-catheter Q8H FANNY thiamine 50 mg oral Daily Infusions: PRN: ??? acetaminophen ??? LORazepam ??? ondansetron ??? prochlorperazine ??? ramelteon ??? sodium chloride 0.9% ??? sodium chloride 0.9% ??? sodium chloride 0.9% Vitals: 24hr Min/Max: Temp Min: 36.7 ??C (98.1 ??F) Max: 36.8 ??C (98.2 ??F) Pulse Min: 62 Max: 95 BP Min: 112/61 Max: 134/79 Resp Min: 18 Max: 18 SpO2 Min: 96 % Max: 100 % Most Recent: Vitals: 02/25/19 1145 BP: 112/61 Pulse: 62 Resp: Temp: SpO2: 100% Intake/Output Summary (Last 24 hours) at 02/25/2019 1206 Last data filed at 02/25/2019 0831 Gross per 24 hour Intake 10 ml Output -- Net 10 ml Physical Exam Constitutional: He is oriented to person, place, and time. He appears well- developed and well-nourished. HENT: Head: Normocephalic and atraumatic. Eyes: Pupils are equal, round, and reactive to light. EOM are normal. Neck: Normal range of motion. Neck supple. Cardiovascular: Normal rate, regular rhythm, normal heart sounds and intact distal pulses. Exam reveals no gallop and no friction rub. No murmur heard. Pulmonary/Chest: Effort normal and breath sounds normal. No respiratory distress. He has no wheezes. He has no rales. Abdominal: Soft. He exhibits distension. There is no tenderness. There is no guarding. Musculoskeletal: Normal range of motion. He exhibits no edema. Lymphadenopathy: He has no cervical adenopathy. Neurological: He is alert and oriented to person, place, and time. No cranial nerve deficit. Skin: Skin is warm and dry. Capillary refill takes less than 2 seconds. Lab/Diagnostic Review: Recent Results (from the past 24 hour(s)) CBC with auto differential Collection Time: 02/24/19 9:20 PM Result Value Ref Range WBC 5.5 3.8 - 9.9 K/cumm Hgb 10.0 (L) 13.0 - 17.5 g/dL Hct 30.8 (L) 38.9 - 50.3 % Plt 87 (L) 150 - 400 K/cumm MPV 10.7 9.1 - 12.3 fL RBC 3.06 (L) 4.30 - 5.80 M/cumm MCV 100.7 (H) 81.3 - 96.4 fL MCH 32.7 27.1 - 33.3 pg MCHC 32.5 32.3 - 35.7 g/dL RDW CV 14.3 11.1 - 14.9 % RDW SD 51.7 (H) 35.7 - 48.1 fL NRBC abs 0.00 0.00 - 0.01 K/cumm Basic metabolic panel Collection Time: 02/24/19 9:20 PM Result Value Ref Range Sodium 137 135 - 145 mmol/L Potassium, pl See Comment 3.3 - 4.9 mmol/L Chloride 105 97 - 110 mmol/L CO2 24 22 - 32 mmol/L Anion gap 8 2 - 15 mmol/L BUN 3 (L) 8 - 25 mg/dL Creatinine 0.62 (L) 0.80 - 1.30 mg/dL Glucose 103 70 - 199 mg/dL Calcium 8.4 (L) 8.5 - 10.3 mg/dL Differential, auto Collection Time: 02/24/19 9:20 PM Result Value Ref Range Neutrophil abs 3.6 1.7 - 6.5 K/cumm Imm gran abs 0.0 0.0 - 0.1 K/cumm Lymphocyte abs 1.1 0.8 - 3.3 K/cumm Monocyte abs 0.6 0.2 - 0.8 K/cumm Eosinophil abs 0.2 0.0 - 0.5 K/cumm Basophil abs 0.0 0.0 - 0.1 K/cumm Neutrophil pct 65.1 % Imm gran pct 0.4 % Lymphocyte pct 19.7 % Monocyte pct 10.5 % Eosinophil pct 3.4 % Basophil pct 0.9 % Magnesium Collection Time: 02/24/19 9:20 PM Result Value Ref Range Magnesium 1.9 1.4 - 2.5 mg/dL Phosphorus Collection Time: 02/24/19 9:20 PM Result Value Ref Range Phosphorus, pl 3.2 2.3 - 4.5 mg/dL I have reviewed the laboratory results. Imaging Results: X-ray Chest 1 View (portable) Result Date: 02/21/2019 No prior radiograph is available for comparison. The lungs are clear, specifically there is no focal consolidation or pulmonary edema. There is no pneumothorax or pleural effusion. The cardiomediastinal silhouette is normal. Dictated by: Aneudy Smith The radiology attending physician has personally reviewed this study, and had reviewed and/or edited this written report and agrees with it. Electronically signed by: Kenyon Golden M.D. Us Liver W Complete Doppler (c) Result Date: 02/21/2019 1. Diffuse hepatic steatosis and cirrhosis. 2. Retrograde portal flow without portal vein thrombosis. Dictated by: Emir Adna M.D. Ph.D. The radiology attending physician has personally reviewed this study, and had reviewed and/or edited this written report and agrees with it. Electronically signed by: Leilani Sykes M.D. Assessment/Plan 48 y.o. male with PMH of cirrhosis, active Hep C infection (treated at OSH, duration and status unknown), s/p ORIF for distal radius fracture 09/2018 at OSH, DTs presents with GI bleed - likely secondary to esophageal ulcers. Hematemesis Assessment & Plan Reports four episodes of bright red blood [...] Continue Ceftriaxone - planned stop date 02/25 Cirrhosis (CMS/HCC) Assessment & Plan Etiology possibly secondary to alcohol vs HCV. CT A/P with findings consistent with cirrhosis and portal HTN. RUQ US negative for clot. Ammonia was elevated > 100, but patient has not been floridly encephalopathic. - Monitor for accumulation of ascities - Starting nadolol 20 mg daily per GI recommendations - uptitrating to 40mg daily for discharge Hepatitis C Assessment & Plan Per OSH records, follows with Dr. Douglas for this. Hepatitis panel without Hep A, Hep B infection and no Hep B immunity. - Plan for Hep B vaccine Polysubstance abuse (CMS/HCC) Assessment & Plan Reportedly drinks 6 24 oz beers daily, as well as recent marijuana use and cocaine use (6 months prior to presentation). - UDS with cannabinoids and opiods - Ativan PRN - will discontinue - Social work consult for resources to quit drinking Juancho Rodriguez MD Cosigned by Colleen Damon MD at 02/25/2019 2:28 PM CDT Associated attestation - Colleen Damon MD - 02/25/2019 2:28 PM CDT I have seen and examined the patient on 02/25/19. I agree with the findings and plan of care as documented in the resident's/fellow's note. * Amrit Painter MD - 02/25/2019 8:15 AM CDT General GI Subsequent Consult Subjective No acute events overnight, patient has remained afebrile and hemodynamically stable. EGD performed yesterday demonstrated grade 2 esophageal varices. Although the varices did not have any clear endoscopic stigmata of recent bleed, and the lack of any alternate sources, it was thought that these varices were the likely etiology of his symptoms, and were successfully banded. This a.m., patient with no specific complaints. He denies any dysphagia, odynophagia, nausea, vomiting, abdominal pain. He has not had a bowel movement since his endoscopic procedure yesterday. Current Facility-Administered Medications: ??? acetaminophen (TYLENOL) tablet 500 mg, 500 mg, oral, Q6H PRN, Ranjan Enriquez MD, 500 mg at 02/24/192132 ??? cefTRIAXone (ROCEPHIN) 1,000 mg/10 mL in sterile water (premix) 1,000 mg, 1,000 mg, intravenous, Q24H FANNY, Juancho Rodriguez MD, Last Rate: 120 mL/hr at 02/23/19 0800, 1,000 mg at 02/23/19 0800 ??? folic acid (FOLVITE) tablet 1 mg, 1 mg, oral, Daily, Antonino Gill MD, 1 mg at 02/24/19 1040 ??? LORazepam (ATIVAN) tablet 1 mg, 1 mg, oral, Q8H PRN, Juancho Rodriguez MD ??? nadolol (CORGARD) tablet 20 mg, 20 mg, oral, Daily, Juancho Rodriguez MD, 20 mg at 02/24/192107 ??? nicotine (NICODERM CQ) 14 mg patch 24 hour 1 patch, 1 patch, transdermal, Daily, Trev Ruiz MD, Stopped at 02/24/19 1051 ??? ondansetron (ZOFRAN) injection 4 mg, 4 mg, intravenous, Q4H PRN, Kenyon Altamirano Jr., MD, 4 mg at 02/22/19 1154 ??? pantoprazole (PROTONIX) injection 40 mg, 40 mg, intravenous, BID, Javier Mobley MD PhD, 40 mg at 02/24/192106 ??? prochlorperazine (COMPAZINE) injection 5 mg, 5 mg, intravenous, Q6H PRN, Mrina Valladares MD, 5mg at 02/22/19 1600 ??? ramelteon (ROZEREM) tablet 8 mg, 8 mg, oral, Nightly PRN, Hilario Valladares MD, 8 mg at 02/24/192125 ??? sodium chloride 0.9% flush 0.5-20 mL, 0.5-20 mL, intra-catheter, Q8H FANNY, Reilly Oneill MD PhD, 10 mL at 02/24/192107 ??? sodium chloride 0.9% flush 0.5-20 mL, 0.5-20 mL, intra-catheter, PRN, Reilly Oneill MD PhD ??? sodium chloride 0.9% flush 0.5-20 mL, 0.5-20 mL, intra-catheter, PRN, Lawanda Cohen MD PhD ??? sodium chloride 0.9% flush 0.5-20 mL, 0.5-20 mL, intra-catheter, PRN, Emir Roblero MD ??? thiamine (VITAMIN B-1) tablet 50 mg, 50 mg, oral, Daily, Ranjan Enriquez MD, 50 mg at 02/24/19 1039 Vitals: 24hr Min/Max: Temp Min: 36.5 ??C (97.7 ??F) Max: 36.8 ??C (98.2 ??F) Pulse Min: 63 Max: 95 BP Min: 112/61 Max: 156/94 Resp Min: 11 Max: 20 SpO2 Min: 93 % Max: 100 % Most Recent : Vitals: 02/25/19 0810 BP: 124/82 Pulse: 76 Resp: 18 Temp: 36.7 ??C (98.1 ??F) SpO2: 99% I/O last 2 completed shifts: In: 300 [I.V.:300] Out: 400 [Urine:400] No intake/output data recorded. Objective Physical Exam: General: well appearing, laying in bed, in NAD HEENT: NC/AT, OP clear, poor dentition Neck: Supple CV: RRR Resp: unlabored breathing Abd: Soft, minimally distended, nontender, active bowel sounds Neuro: A&Ox4. No gross focal deficits. Derm: Scattered tattoos Lab/Radiology/Diagnostic Review: Recent Results (from the past 24 hour(s)) CBC with auto differential Collection Time: 02/24/19 9:20 PM Result Value Ref Range WBC 5.5 3.8 - 9.9 K/cumm Hgb 10.0 (L) 13.0 - 17.5 g/dL Hct 30.8 (L) 38.9 - 50.3 % Plt 87 (L) 150 - 400 K/cumm MPV 10.7 9.1 - 12.3 fL RBC 3.06 (L) 4.30 - 5.80 M/cumm MCV 100.7 (H) 81.3 - 96.4 fL MCH 32.7 27.1 - 33.3 pg MCHC 32.5 32.3 - 35.7 g/dL RDW CV 14.3 11.1 - 14.9 % RDW SD 51.7 (H) 35.7 - 48.1 fL NRBC abs 0.00 0.00 - 0.01 K/cumm Basic metabolic panel Collection Time: 02/24/19 9:20 PM Result Value Ref Range Sodium 137 135 - 145 mmol/L Potassium, pl See Comment 3.3 - 4.9 mmol/L Chloride 105 97 - 110 mmol/L CO2 24 22 - 32 mmol/L Anion gap 8 2 - 15 mmol/L BUN 3 (L) 8 - 25 mg/dL Creatinine 0.62 (L) 0.80 - 1.30 mg/dL Glucose 103 70 - 199 mg/dL Calcium 8.4 (L) 8.5 - 10.3 mg/dL Differential, auto Collection Time: 02/24/19 9:20 PM Result Value Ref Range Neutrophil abs 3.6 1.7 - 6.5 K/cumm Imm gran abs 0.0 0.0 - 0.1 K/cumm Lymphocyte abs 1.1 0.8 - 3.3 K/cumm Monocyte abs 0.6 0.2 - 0.8 K/cumm Eosinophil abs 0.2 0.0 - 0.5 K/cumm Basophil abs 0.0 0.0 - 0.1 K/cumm Neutrophil pct 65.1 % Imm gran pct 0.4 % Lymphocyte pct 19.7 % Monocyte pct 10.5 % Eosinophil pct 3.4 % Basophil pct 0.9 % Magnesium Collection Time: 02/24/19 9:20 PM Result Value Ref Range Magnesium 1.9 1.4 - 2.5 mg/dL Phosphorus Collection Time: 02/24/19 9:20 PM Result Value Ref Range Phosphorus, pl 3.2 2.3 - 4.5 mg/dL Assessment /Plan In summary, Mr. Dubose is a 48 y.o.??male??with history of Hep C infection (tx unknown), alcohol use disorder, and cirrhosis on imaging who presented from OSH for hematemesis and melena. EGD performed yesterday demonstrated grade 2 esophageal varices. Although the varices did not have any clear endoscopic stigmata of recent bleed, and the lack of any alternate sources, it was thought that thesevarices were the likely etiology of his symptoms, and were successfully banded. - patient s/p 72 hours of octreotide and 5 days of CTX - place a mechanical soft diet today and advance as tolerated afterwards - would start a nonselective beta-sparkle such as nadolol 20 mg daily - patient will require repeat EGD in roughly 4 weeks for reassessment of endoscopic band ligation The General GI service will continue to follow. Please do not hesitate to contact the GI service with any questions or concerns. We can be reached Sunday through Sunday from 0800 to 1700 at [phone]. From 1700 to 0800 Sunday through Sunday and all day Sunday/Sunday, we can be reached at [phone]. 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) Potential Discharge Needs Discharge Potential discharge needs to be determined Anticipated discharge level of care Return Home Dialysis No Psychiatric services No Communications Fiduciary Responsibility Patient/Designated decision maker was informed of [facility] fiduciary relationship as necessary Chart reviewed for: Medical Necessity Patient admitted for: 48 y.o.??male??with history of Hep C infection (tx unknown) who presented from OSH for hematemesis and melena Information obtained from: patient Role of CM explained/additional information & options discussed Phone/Address Verified Plan includes: Patient to discharge from the hospital when medically stable. Discharge needs to be determined at this time. Insurances verified as: Medicare A/B and medicaid [place] Prescription coverage verified Admission Source: OSH PCP Confirmed: No PCP. Would like appt at [facility] medicine clinic Referrals initiated to: none at this time Transportation at discharge: patient's mother vs public transportation Patient and family agree with plan. Base on a comprehensive family assessment, assistance with instrumental activities of daily living after discharge will be provided by patient. Through the course of our work I determined that patient possesses the skill and ability to provideand monitor the care of the patient when he or she returns home. Patient has the capacity to provide/monitor/arrange for the care of the patient. Finally, we determined that patient has the knowledgeof available resources and that combining them with their existing resources will suffice to sustain and care for the patient when he or she returns home. The treatment team is aware of this information. All are in agreement with the aftercare plan. Case management will continue to follow for discharge planning and referrals as needed. Please call if I may be of any assistance. [phone] * Juancho Rodriguez MD - 02/24/2019 2:53 PM CDT Daily Progress Note Medicine FIRM Name: Chester Dubose Today: February 24, 2019 : 1970 Age: 48 y.o. male Admit: 02/21/2019 Bed: [id number] Subjective Chief complaint: GI Bleed Interval History: Patient had no acute events overnight - he has used 4 mg of Ativan in last 24 hours. He has not had any episodes of emesis or bloody stool. Went for endoscopy with GI today - had two varices banded. Discussed with patient the importance of discontinuing alcohol consumption - will connect with social work for outpatient resources. No headache, chest pain, shortness of breath, nausea / vomiting Objective Medications: Scheduled: cefTRIAXone 1,000 mg intravenous Q24H FANNY folic acid 1 mg oral Daily nicotine 1 patch transdermal Daily pantoprazole 40 mg intravenous BID sodium chloride 0.9% 0.5-20 mL intra-catheter Q8H FANNY thiamine 50 mg oral Daily Infusions: PRN: ??? acetaminophen ??? LORazepam ??? ondansetron ??? prochlorperazine ??? ramelteon ??? sodium chloride 0.9% ??? sodium chloride 0.9% ??? sodium chloride 0.9% Vitals: 24hr Min/Max: Temp Min: 36.5 ??C (97.7 ??F) Max: 36.9 ??C (98.4 ??F) Pulse Min: 72 Max: 95 BP Min: 113/75 Max: 156/94 Resp Min: 11 Max: 20 SpO2 Min: 92 % Max: 100 % Most Recent: Vitals: 02/24/19 1210 BP: 131/79 Pulse: 95 Resp: 18 Temp: 36.7 ??C (98.1 ??F) SpO2: 100% Intake/Output Summary (Last 24 hours) at 02/24/2019 1516 Last data filed at 02/24/2019 0910 Gross per 24 hour Intake 540 ml Output 2600 ml Net -2060 ml Physical Exam Constitutional: He is oriented to person, place, and time. He appears well- developed and well-nourished. HENT: Head: Normocephalic and atraumatic. Eyes: Pupils are equal, round, and reactive to light. EOM are normal. Neck: Normal range of motion. Neck supple. Cardiovascular: Normal rate, regular rhythm, normal heart sounds and intact distal pulses. Exam reveals no gallop and no friction rub. No murmur heard. Pulmonary/Chest: Effort normal and breath sounds normal. No respiratory distress. He has no wheezes. He has no rales. Abdominal: Soft. He exhibits distension. There is no tenderness. There is no guarding. Musculoskeletal: Normal range of motion. He exhibits no edema. Lymphadenopathy: He has no cervical adenopathy. Neurological: He is alert and oriented to person, place, and time. No cranial nerve deficit. Skin: Skin is warm and dry. Capillary refill takes less than 2 seconds. Lab/Diagnostic Review: Recent Results (from the past 24 hour(s)) CBC with auto differential Collection Time: 02/23/19 5:06 PM Result Value Ref Range WBC 3.8 3.8 - 9.9 K/cumm Hgb 9.9 (L) 13.0 - 17.5 g/dL Hct 29.9 (L) 38.9 - 50.3 % Plt 80 (L) 150 - 400 K/cumm MPV 11.0 9.1 - 12.3 fL RBC 2.96 (L) 4.30 - 5.80 M/cumm MCV 101.0 (H) 81.3 - 96.4 fL MCH 33.4 (H) 27.1 - 33.3 pg MCHC 33.1 32.3 - 35.7 g/dL RDW CV 14.0 11.1 - 14.9 % RDW SD 51.5 (H) 35.7 - 48.1 fL NRBC abs 0.00 0.00 - 0.01 K/cumm Differential, auto Collection Time: 02/23/19 5:06 PM Result Value Ref Range Neutrophil abs 2.5 1.7 - 6.5 K/cumm Imm gran abs 0.0 0.0 - 0.1 K/cumm Lymphocyte abs 0.8 0.8 - 3.3 K/cumm Monocyte abs 0.3 0.2 - 0.8 K/cumm Eosinophil abs 0.1 0.0 - 0.5 K/cumm Basophil abs 0.0 0.0 - 0.1 K/cumm Neutrophil pct 66.6 % Imm gran pct 0.3 % Lymphocyte pct 21.2 % Monocyte pct 7.9 % Eosinophil pct 3.2 % Basophil pct 0.8 % Basic metabolic panel Collection Time: 02/24/19 4:35 AM Result Value Ref Range Sodium 138 135 - 145 mmol/L Potassium, pl 3.3 3.3 - 4.9 mmol/L Chloride 105 97 - 110 mmol/L CO2 26 22 - 32 mmol/L Anion gap 7 2 - 15 mmol/L BUN 4 (L) 8 - 25 mg/dL Creatinine 0.72 (L) 0.80 - 1.30 mg/dL Glucose 127 70 - 199 mg/dL Calcium 8.3 (L) 8.5 - 10.3 mg/dL Magnesium Collection Time: 02/24/19 4:35 AM Result Value Ref Range Magnesium 1.7 1.4 - 2.5 mg/dL Phosphorus Collection Time: 02/24/19 4:35 AM Result Value Ref Range Phosphorus, pl 2.9 2.3 - 4.5 mg/dL CBC with auto differential Collection Time: 02/24/19 4:35 AM Result Value Ref Range WBC 3.9 3.8 - 9.9 K/cumm Hgb 9.6 (L) 13.0 - 17.5 g/dL Hct 29.1 (L) 38.9 - 50.3 % Plt 78 (L) 150 - 400 K/cumm MPV 11.4 9.1 - 12.3 fL RBC 2.90 (L) 4.30 - 5.80 M/cumm MCV 100.3 (H) 81.3 - 96.4 fL MCH 33.1 27.1 - 33.3 pg MCHC 33.0 32.3 - 35.7 g/dL RDW CV 14.0 11.1 - 14.9 % RDW SD 50.6 (H) 35.7 - 48.1 fL NRBC abs 0.00 0.00 - 0.01 K/cumm Differential, auto Collection Time: 02/24/19 4:35 AM Result Value Ref Range Neutrophil abs 2.4 1.7 - 6.5 K/cumm Imm gran abs 0.0 0.0 - 0.1 K/cumm Lymphocyte abs 0.9 0.8 - 3.3 K/cumm Monocyte abs 0.3 0.2 - 0.8 K/cumm Eosinophil abs 0.2 0.0 - 0.5 K/cumm Basophil abs 0.0 0.0 - 0.1 K/cumm Neutrophil pct 62.7 % Imm gran pct 0.3 % Lymphocyte pct 22.6 % Monocyte pct 8.7 % Eosinophil pct 4.4 % Basophil pct 1.3 % I have reviewed the laboratory results. Imaging Results: X-ray Chest 1 View (portable) Result Date: 02/21/2019 No prior radiograph is available for comparison. The lungs are clear, specifically there is no focal consolidation or pulmonary edema. There is no pneumothorax or pleural effusion. The cardiomediastinal silhouette is normal. Dictated by: Aneudy Smith The radiology attending physician has personally reviewed this study, and had reviewed and/or edited this written report and agrees with it. Electronically signed by: Kenyon Golden M.D. Us Liver W Complete Doppler (c) Result Date: 02/21/2019 1. Diffuse hepatic steatosis and cirrhosis. 2. Retrograde portal flow without portal vein thrombosis. Dictated by: Emir Adan M.D. Ph.D. The radiology attending physician has personally reviewed this study, and had reviewed and/or edited this written report and agrees with it. Electronically signed by: Leilani Sykes M.D. Assessment/Plan Hematemesis Assessment & Plan Reports four episodes of bright red blood prior to presentation. No further emesis in ICU. - GI consult - endoscopy on 02/24 with two esophageal varices banded. Will repeat upper endoscopy in four weeks for band ligation. - discontinue Octreotide drip - IV PPI BID - Continue Ceftriaxone - planned stop date 02/25 Cirrhosis (CMS/HCC) Assessment & Plan Etiology possibly secondary to alcohol vs HCV. CT A/P with findings consistent with cirrhosis and portal HTN. RUQ US negative for clot. Ammonia was elevated > 100, but patient has not been floridly encephalopathic. - Monitor for accumulation of ascities - Starting nadolol 20 mg daily per GI recommendations Hepatitis C Assessment & Plan Per OSH records, follows with Dr. Douglas for this. Hepatitis panel without Hep A, Hep B infection and no Hep B immunity. - Plan for Hep B vaccine Polysubstance abuse (CMS/HCC) Assessment & Plan Reportedly drinks 6 24 oz beers daily, as well as recent marijuana use and cocaine use (6 months prior to presentation). - UDS with cannabinoids and opiods - Ativan PRN - spacing from 1 mg q4h to q6h - Social work consult for resources to quit drinking Juancho Rodriguez MD Cosigned by Colleen Damon MD at 02/24/2019 6:46 PM CDT Associated attestation - Colleen Damon MD - 02/24/2019 6:46 PM CDT I have seen and examined the patient on 02/24/19. I agree with the findings and plan of care as documented in the resident's/fellow's note. * Jeromy Allan MD - 02/23/2019 10:33 AM CDT ICU Daily Progress Subjective Chief complaint of GI bleed, in s/o esophageal varices Subjective NAEO, VSS. Interval History: Last had e/o GIB 02/22, no N/V/D/melena overnight. Hgb 9.1->9.4. GI: tentatively EGD Sunday, unless decompensates. Bcx with CoNS 1/2 bottles. This morning, no acute complaints. Objective Vitals: 24hr Min/Max: Temp Min: 36.3 ??C (97.3 ??F) Max: 37 ??C (98.6 ??F) Pulse Min: 73 Max: 93 BP Min: 117/78 Max: 162/91 Resp Min: 12 Max: 21 SpO2 Min: 90 % Max: 97 % I/O: Date 02/22/19699 - 02/23/1965802/23/19699 - 02/24/19 0659 Shift 0470-0480 1197-2376 24 Hour Total 3484-0567 2802-0796 24 Hour Total INTAKE P.O. 5299 476 9376 600 600 I.V.(mL/kg) 135(1.6) 108.3(1.3) 243.3(2.8) 41(0.5) 41(0.5) IV Piggyback 10 100 110 120 120 Shift Total(mL/kg) 1345(15.7) 688.3(8) 2033.3(23.7) 761(8.9) 761(8.9) OUTPUT Urine(mL/kg/hr) 1750(1.7) 1700(1.7) 3450(1.7) 375 375 Shift Total(mL/kg) 1750(20.4) 1700(19.8) 3450(40.3) 375(4.4) 375(4.4) NET -405 -1011.7 -1416.7 386 386 Weight (kg) 85.7 85.7 85.7 85.7 85.7 85.7 Oxygen / Pulmonary Events: Vent settings for last 24 hours: LDA: Physical Exam: Constitutional: Well-developed, chronically ill, in NAD Head: NC/AT. Eyes: Sclera anicteric. PERRL, EOMI. ENT: MMM, OP clear Cardiovascular: RRR, normal S1/S2, early systolic murmur Lungs: Normal respiratory effort. CTABL, no rhonchi or wheezing GI: Soft, mildly distended and tender diffusely, normoactive BS Extremities: WWP. 2+ DP pulses bilaterally. No edema Skin: No new rashes, lesions or bruises Neurologic: No tremor. No asterixis. Psychiatric: Normal affect, answers questions appropriately Lab/Radiology/Diagnostic Review: Imaging Results: Transthoracic Echo Complete W Doppler/CF Patient name: Chester Dubose Date of test: 02/22/2019 Type of test: TTE w/Doppler Hospital #: [id number] Date of : 1970 (M) Research Associate: Beatriz Plata RDCS Referring Physician: CARLOS ROJO MD Contrast Agent: Contrast Administered by: Supervised/Interpreted by: Montrell Michel MD Diagnosis: Dyspnea Pre-Op Location: [facility] Reason for test: Pre TIPS MV Structure: Normal, MV Motion: Normal, Mitral Annulus: Normal AV Structure: tricuspid and is Normal, AV Motion: Normal Aotic root: Normal, TM: Normal, PV: Normal Valvular Vegetations: none seen, Mass/Thrombi: none seen RA: Normal Measurements: M-Mode Normal Aotic Root: <3.8 LA: <4.0 RV: <2.8 LV(ED): <5.7 LV(ES): Variable 2D Linear Normal Aotic Root: 3.3 cm <4.0 Ao Indexed: 1.6 cm/M2 <2.0 LA: <4.0 RV: 3.6 cm <4.2 LV(ED): 4.7 cm <5.9 LV(ES): 2.5 cm <4.0 2D Vol. Normal Indexed Indexed Normal RA: 29.0 ml 14.0 ml/M2 11-39 LA: 60.0 ml 28.9 ml/M2 16-34 RV: <12.7 LV(ED): 93.0 ml 62-150 44.8 ml/M2 <75 LV(ES): 25.0 ml 21-61 12.0 ml/M2 <32 3D Vol. Indexed Normal LV(ED): 78.6 mL/m2 <75 LV(ES): 38.1 mL/m2 <32 LV EF: 73 % (Normal: >=52%) LV Septum: 1.0 cm (Normal: <1.0 cm) Wall Motion Scoring (1=Normal 2=Hypo 3=Akinetic 4=Dyskin./Aneurysm 0=Not visualized) Parasternal Long [place]:MAS=1 BAS=1 MP=1 BP=1 Parasternal Short [place]:MAS=1 MS=1 OR=1 MP=1 ML=1 MA=1 Apical 4 Chambers:=1 MS=1 BS=1 BL=1 OR=1 AL=1 Apical 2 Chambers:AI=1 OR=1 BI=1 BA=1 MA=1 AA=1 LV Global Longitudinal Strain: -19.9% (Normal <-19%) RV Global Longitudinal Strain: LV Function: Normal LV Ejection Fraction, (EF=52-72%) RV Function: Normal Septal Motion: Normal Pericardial Effusion: none seen Atrial Septum: Normal DOPPLER/COLOR FOLOW DOPPLER RESULTS: Diastolic Function: Inconsistent Tricuspid Valve: normal TV Pulmonic Valve: normal PV AV Regurgitation: No AR seen AV Stenosis: no AV Area: cm2 AV Pressure Gradient (mmHg): Mean: 0, Peak:0 MV Regurgitation: No MR seen MV Stenosis: no MS MV Area: cm2 MV Pressure Gradient (mmHg): Mean: 0 MV ERO: cm Regurg. Vol.: ml/beat Regurg. Frac.: % PA Pressure: 30 mmHg DOPPLER/COLOR FOLOW DOPPLER COMMENTS: No AR seen, No MR seen, no , no MS, normal TV, normal PV. Diastolic function: Inconsistent SUMMARY: LV cavity size is normal. Normal LV wall thickness/mass. LVEF = 73%. LA is normal. Normal RV cavity size and function. Normal Inferior vena cava. Normal aorta. No AR seen, No MR seen, no , no MS, normal TV, normal PV. Diastolic function: Inconsistent. No previous examinations are available for comparison. Confirmed on 02/22/2019 - 12:10:17 by Montrell Michel MD By signing this report, the attending component lab tech certifies that he or she has personally supervised and interpreted the echocardiogram and has reviewed and or edited and agrees with the written comments contained within the report. Assessment/Plan Hematemesis Assessment & Plan Reported hematemesis at home in s/o cirrhosis and esophageal varices. Here, having ongoing retching, some non bloody emesis. - No episodes of vomiting upon arrival to ICU -GI: tentatively EGD Sunday, unless decompensates - Octreotide drip, CTX (end date plan 02/25), IV PPI. -bcx 1/2 bottles with CoNS, contaminent -hgb q12h - been stable ~9 since arrival. -Continue CLD, NPO at [facility] [place] for possible EGD Hepatitis C Assessment & Plan - Per OSH records followed by a GI physician Dr. Douglas and treated for this. Current status unkown. - Hepatitis B surface Ab neg Polysubstance abuse (CMS/HCC) Assessment & Plan Etiology of cirrhosis unclear if 2/2 to alcohol abuse or HCV -Last drink 02/20. UDS+ opiates, cannabinoid - Has previously experienced withdrawals with delirium tremens - ativan prn Cirrhosis (CMS/HCC) Assessment & Plan 2/2 HCV vs etoh. No ascites. NH3 115 here. Lipase wnl - RUQ with dopplers showing steatosis and cirrhosis, no PVT Hematochezia Assessment & Plan - Small bloody BM 02/21, none since. See hematemesis FENGI: Adult Diet Clear Liquid NPO Diet on ppi ANALGESIA: tylenol SEDATION: none DVT Prophylaxis: SCD Code Status: Full Code Dispo: SINDY Allan MD Cosigned by Capo Aguilera MD at 02/23/2019 12:27 PM CDT Associated attestation - Capo Aguilera MD - 02/23/2019 12:27 PM CDT Critical Care Time: I have spent 18 minutes in full attendance with this critically ill patient making frequent reassessments and decisions regarding this patient's complex medical care. Critical care time was exclusive of separately billable procedures, treating other patients and teaching time. Critical care was necessary to treat or prevent imminent or life-threatening deterioration of the following conditions:gib My Assessment and Plan:plan for gib is serial cbc, transfuse to Hg > 7, gi team eval for scope, blood sugar control, monitor and correct lytes Attending Documentation: as above I have seen and examined this patient on the day of service. I have reviewed and confirmed the history, physical exam, laboratory and radiographic data with the house staff as documented in the ICU resident note. I have reviewed and discussed my treatment plan with the ICU team and other medical/publicity consultant staff. * Ranjan Enriquez MD - 02/22/2019 11:32 AM CDT ICU Daily Progress Subjective Chief complaint of GI bleed, in s/o esophageal varices Subjective NAEO, VSS. Interval History: Last had e/o GIB yesterday, with one small volume melanotic stool. No hematemesis. Having ongoing retching, some non bloody emesis. hgb been stable ~9 -GI: tentatively EGD Sunday, unless decompensates -bcx this morning growing GPC in clusters in 1/2 bottles -Tbili 1.4>2.4. AST stably high. ALT wnl. This morning, no acute complaints. Minor intermittent abd pain. Hungry and asking to eat. Denies anxiety, tremors or seizures. Will advance to clear liquid diet. Objective Vitals: 24hr Min/Max: Temp Min: 36.2 ??C (97.2 ??F) Max: 36.6 ??C (97.9 ??F) Pulse Min: 68 Max: 105 BP Min: 113/97 Max: 165/111 Resp Min: 11 Max: 23 SpO2 Min: 90 % Max: 98 % I/O: Date 02/21/19699 - 02/22/1965802/22/19699 - 02/23/19 0659 Shift 24 Hour Total 4381-2977 4681-8068 24 Hour Total INTAKE P.O. 240 240 I.V.(mL/kg) 83.3(1) 120.8(1.4) 204.2(2.4) 50(0.6) 50(0.6) IV Piggyback 10 10 Shift Total(mL/kg) 83.3(1) 120.8(1.4) 204.2(2.4) 300(3.5) 300(3.5) OUTPUT Urine(mL/kg/hr) 1200(1.2) 600(0.6) 1800(0.9) 525 525 Shift Total(mL/kg) 1200(14) 600(7) 1800(21) 525(6.1) 525(6.1) NET -1116.7 -479.2 -1595.8 -225 -225 Weight (kg) 85.7 85.7 85.7 85.7 85.7 85.7 Oxygen / Pulmonary Events: Vent settings for last 24 hours: LDA: Physical Exam: Constitutional: Well-developed, chronically ill, in NAD Head: NC/AT. Eyes: Sclera anicteric. PERRL, EOMI. ENT: MMM, OP clear Cardiovascular: RRR, normal S1/S2, early systolic murmur, no JVD. Lungs: Normal respiratory effort. CTABL, no rhonchi or wheezing GI: Soft, mildly distended and tender diffusely, normoactive BS Extremities: WWP. 2+ DP pulses bilaterally. No edema Skin: No new rashes, lesions or bruises Neurologic: AOx2, oriented to self and place, says year is 1989. grossly normal strength and sensation. No asterixis. Psychiatric: Normal affect and mood, answers questions appropriately Lab/Radiology/Diagnostic Review: Imaging Results: X-ray chest 1 view (Portable) Narrative: EXAMINATION: 1 view chest radiograph Impression: No prior radiograph is available for comparison. The lungs are clear, specifically there is no focal consolidation or pulmonary edema. There is no pneumothorax or pleural effusion. The cardiomediastinal silhouette is normal. Dictated by: Aneudy Smith The radiology attending physician has personally reviewed this study, and had reviewed and/or edited this written report and agrees with it. Electronically signed by: Kenyon Golden M.D. US Liver W Complete Doppler (C) Narrative: EXAMINATION: 1. LIVER SONOGRAM 2. LIVER DOPPLER HISTORY: 48-year-old man with cirrhosis. COMPARISON: None FINDINGS: LIMITED ABDOMEN: Liver: The liver is normal in size. The echotexture is coarse. The echogenicity is increased. There is surface nodularity. No focal solid lesions are visualized; however, the level of steatosis limits evaluation for focal lesions. Gallbladder: The gallbladder is normal in size. There are no stones or sludge within the gallbladder. There is no gallbladder wall thickening. Bile Duct: There is no intrahepatic bile duct dilatation. The common duct measures 0.3 cm in the proximal segment. Other Findings: There is no ascites. There is splenomegaly. LIVER DOPPLER: Color Doppler and spectral analysis were used to evaluate the hepatic vasculature. Portal veins: The main portal vein as well as the right and left branches have hepatofugal (retrograde) flow. No thrombosis is visualized. Hepatic veins: The middle and left hepatic veins are patent with anterograde flow. The right hepatic vein is not visualized. Portosplenic confluence: The portosplenic confluence is patent. IVC: The inferior vena cava at the level of the liver is patent with appropriate directional flow. Hepatic artery: The visualized main hepatic artery is patent with antegrade flow. Other: There is a recanalized umbilical vein. Impression: 1. Diffuse hepatic steatosis and cirrhosis. 2. Retrograde portal flow without portal vein thrombosis. Dictated by: Emir Adan M.D. Ph.D. The radiology attending physician has personally reviewed this study, and had reviewed and/or edited this written report and agrees with it. Electronically signed by: Leilani Sykes M.D. Assessment/Plan Hepatitis C Assessment & Plan - Per OSH records followed by a GI physician Dr. Stella and treated for this. Current status unkown. - Hepatitis panel sent Polysubstance abuse (CMS/HCC) Assessment & Plan Etiology of cirrhosis unclear if 2/2 to alcohol abuse or HCV -Last drink 02/20. UDS+ opiates, cannabinoid - Has previously experienced withdrawals with delirium tremens - ativan prn Cirrhosis (CMS/HCC) Assessment & Plan 2/2 HCV vs etoh. No ascites. NH3 115 here. Lipase wnl - RUQ with dopplers showing steatosis and cirrhosis, no PVT Hematochezia Assessment & Plan - Small bloody BM 02/21, none since. See hematemesis Hematemesis Assessment & Plan Reported hematemesis at home in s/o cirrhosis and esophageal varices. Here, having ongoing retching, some non bloody emesis. - No episodes of vomiting upon arrival to ICU -GI: tentatively EGD Sunday, unless decompensates - Octreotide drip, CTX, IV PPI. -bcx 1/2 bottles with GPC in clusters. May be contaminant as pt looks well otherwise. F/u speciation -hgb q12h - been stable ~9 since arrival. Will advance to clear liq diet at pt request FENGI: Adult Diet Clear Liquid on ppi ANALGESIA: tylenol SEDATION: none DVT Prophylaxis: SCD Code Status: Full Code Dispo: TTF Ranjan Enriquez MD Cosigned by Capo Aguilera MD at 02/23/2019 6:08 AM CDT Associated attestation - Capo Aguilera MD - 02/23/2019 6:08 AM CDT Critical Care Time: I have spent 18 minutes in full attendance with this critically ill patient making frequent reassessments and decisions regarding this patient's complex medical care. Critical care time was exclusive of separately billable procedures, treating other patients and teaching time. Critical care was necessary to treat or prevent imminent or life-threatening deterioration of the following conditions:gib My Assessment and Plan:plan for gib is gi team eval, serial cbc, transfuse to Hg > 7 Attending Documentation: as above I have seen and examined this patient on the day of service. I have reviewed and confirmed the history, physical exam, laboratory and radiographic data with the house staff as documented in the ICU resident note. I have reviewed and discussed my treatment plan with the ICU team and other medical/publicity consultant staff. documented in this encounter H&P Notes * Phi Vasquez MD - 02/24/2019 8:06 AM CDT I have reviewed the H&P, examined the patient, and endorse the findings as written. Plan of Care : Based on the above findings, I consider Chester Dubose to be an acceptable risk for : Procedure(s): ESOPHAGOGASTRODUODENOSCOPY Source Note - Lawanda Cohen MD PhD - 02/21/2019 9:23 AM CDT General GI Initial Consult Subjective Patient is a 48 y.o. male with chief complaint of GI bleeding. Reason for consult: GI bleed, chirrosis Requesting Provider: Carlos Rojo MD HPI: 48 y.o. male with history of Hep C infection (tx unknown) who presented from OSH for hematemesis and melena. Pt had 4 episodes of hematemesis and melenia 2 days ago and he presented to OSH. Also has upper quadrant pain and poor appetite. No dysphagia or diarrhea. Pt reports having 6 drinks daily (last 02/19/19), also uses MJ and cocaine. ?? Per chart, INR 1.5 and Hb 11.6 at OSH (no transfusion). CTA/P at OSH c/w cirrhosis and portal hypertension. Sarted on a Protonix gtt, Octreotide gtt, and IVF, also received Ativan for EtOH withdrawal. Pt states he had an EGD at OSH for GI bleeding 8 months ago, no record available. VSS upon arrival at [facility] ICU, repeat hbg 10.1-->9.5, plt 81, INR 1.63 at [facility]. No hematemesis or melenia after arrival at [facility]. U/S showed diffuse hepatic steatosis and cirrhosis, retrograde portal flow without portal vein thrombosis Pt is being transferred to the floor per ICU team. Pt had a brownish BM in the ICU today. I have reviewed the patient's records in [facility]k and [employer]: my findings are summarized above. No past medical history on file. No past surgical history on file. No medications prior to admission. No Known Allergies Social History Tobacco Use ??? Smoking status: Not on file Substance Use Topics ??? Alcohol use: Not on file ??? Drug use: Not on file No family history on file. Review of Systems: As outlined in HPI; all other systems reviewed and negative. Vitals: 24hr Min/Max: Temp Min: 36.1 ??C (97 ??F) Max: 36.1 ??C (97 ??F) Pulse Min: 79 Max: 86 BP Min: 144/91 Max: 173/109 Resp Min: 14 Max: 19 SpO2 Min: 95 % Max: 98 % Most Recent : Vitals: 02/21/19 0700 BP: 144/91 Pulse: 80 Resp: 17 Temp: SpO2: 97% No intake/output data recorded. No intake/output data recorded. Objective Physical Exam: General: chronically ill appearing male in no acute distress ENT: MMM, oropharynx clear Eyes: sclera nonicteric, EOMI Neck: supple, no LAD CV: RRR, normal S1/S2, no m/r/g, no edema Pulm: CTAB without wheezing or crackles Abd: distended, TTP at epigastrium, no fluid wave Ext: WWP, no clubbing or cyanosis Neuro: No focal deficits, alert and awake Skin: Warm, dry, no rashes Psych: Normal mood and affect Lab/Radiology/Diagnostic Review: Recent Results (from the past 24 hour(s)) Comprehensive metabolic panel Collection Time: 02/21/19 6:04 AM Result Value Ref Range Sodium 145 135 - 145 mmol/L Potassium, pl 4.9 3.3 - 4.9 mmol/L Chloride 111 (H) 97 - 110 mmol/L CO2 27 22 - 32 mmol/L Anion gap 7 2 - 15 mmol/L BUN 19 8 - 25 mg/dL Creatinine 0.70 (L) 0.80 - 1.30 mg/dL Glucose 126 70 - 199 mg/dL Calcium 8.2 (L) 8.5 - 10.3 mg/dL Bilirubin, total 2.4 (H) 0.1 - 1.2 mg/dL Protein, pl 6.9 6.5 - 8.5 g/dL Albumin 3.0 (L) 3.5 - 5.0 g/dL Alk phos 93 40 - 130 Units/L ALT 44 7 - 55 Units/L AST 159 (H) 10 - 50 Units/L Magnesium Collection Time: 02/21/19 6:04 AM Result Value Ref Range Magnesium 1.8 1.4 - 2.5 mg/dL Phosphorus Collection Time: 02/21/19 6:04 AM Result Value Ref Range Phosphorus, pl 3.2 2.3 - 4.5 mg/dL Lactate Collection Time: 02/21/19 6:04 AM Result Value Ref Range Lactate 1.5 0.7 - 2.0 mmol/L Protime-INR Collection Time: 02/21/19 6:04 AM Result Value Ref Range PT 17.8 (H) 8.6 - 13.0 sec INR 1.63 (H) 0.80 - 1.20 CBC with auto differential Collection Time: 02/21/19 6:04 AM Result Value Ref Range WBC 4.8 3.8 - 9.9 K/cumm Hgb 10.1 (L) 13.0 - 17.5 g/dL Hct 31.4 (L) 38.9 - 50.3 % Plt 81 (L) 150 - 400 K/cumm MPV 10.7 9.1 - 12.3 fL RBC 3.05 (L) 4.30 - 5.80 M/cumm MCV 103.0 (H) 81.3 - 96.4 fL MCH 33.1 27.1 - 33.3 pg MCHC 32.2 (L) 32.3 - 35.7 g/dL RDW CV 15.4 (H) 11.1 - 14.9 % RDW SD 58.4 (H) 35.7 - 48.1 fL NRBC abs 0.00 0.00 - 0.01 K/cumm Differential, auto Collection Time: 02/21/19 6:04 AM Result Value Ref Range Neutrophil abs 2.8 1.7 - 6.5 K/cumm Imm gran abs 0.0 0.0 - 0.1 K/cumm Lymphocyte abs 1.1 0.8 - 3.3 K/cumm Monocyte abs 0.7 0.2 - 0.8 K/cumm Eosinophil abs 0.0 0.0 - 0.5 K/cumm Basophil abs 0.0 0.0 - 0.1 K/cumm Neutrophil pct 59.2 % Imm gran pct 0.2 % Lymphocyte pct 23.3 % Monocyte pct 15.3 % Eosinophil pct 1.0 % Basophil pct 1.0 % Type and screen Collection Time: 02/21/19 6:28 AM Result Value Ref Range Xiang, indirect Negative ABO Rh O Positive No results found. Assessment /Plan 48 y.o. male with history of Hep C infection (tx unknown), alcohol use disorder, and likely cirrhosis on imaging who presented from OSH for hematemesis and melena, last episode was yesterday, VSS, has not require blood transfusion. C/f variceal bleeding, other ddx including PUD/gastritis, esophagitis, Ann-Valdes tear. Pt was initially in the ICU after the transfer, but is now on the list to [facility]. - maintain 2 large IVs - T/S, trend CBC, transfuse to maintain hbg 7-8 - bid IV PPI, octreotide gtt, CTX for SBP ppx - NPO for now - Emergent EGD if rebleeds; otherwise EGD on Sunday - liver f/u This consult is not final until staffed with an attending. The General GI service will continue to follow. Please do not hesitate the contact the GI service with any questions or concerns. We can be reached Sunday through Sunday from 0800 to 1700 at [phone]. From 1700 to 0800 Sunday through Sunday and all day Sunday/Sunday, we can be reached at [phone]. Lawanda Cohen MD PhD Gastroenterology Fellow Cosigned by Isidro Lozano MD at 02/21/2019 10:54 PM CDT * Mirna Valladares MD - 02/21/2019 5:56 AM CDT Critical Care Medicine History and Physical Subjective Reason for ICU Admission: Upper GI bleed in the setting of (presumed) alcoholic cirrhosis Chief Complaint: Hematemesis, Abdominal pain, dark colored stools HPI: (obtained from patient, sign-out from OSH) Chester Dubose is a 48 y.o. male with PMH of cirrhosis, active Hep C infection (treated at OSH, duration and status unknown), s/p ORIF for distal radius fracture 09/2018 at OSH. Per outside recordshe also has a history of previous suicide attempt and delirium tremens without seizures. He presented to [facility] following 4 episodes of hematemesis and 4 episodes of melenic stools beginning two days ago (PMH largely unknown as patient does not regularly follow with doctor). Per patient, the emesis was bright red in color (per [facility], 100cc of emesis) and stools were dark in color concerningfor blood. He drinks 6 24oz beers daily (last drink 02/19/19). Patient denies hard EtOH use, as it makes him violent. He smokes marijuana daily (last used 02/19/19), and smoked cocaine 6-8 months ago. Denies IVDU. Further history is difficult to obtain as he is somnolent and wanting to sleep. Of note, Patient INR 1.5 and Hb 11.6 (repeat 11.1) at [facility]. CT A/P was consistent with cirrhosis andportal hypertension. At [facility], patient was started on a Protonix gtt, Octreotide gtt, and NS 100cc/hr. He also received 4mg Ativan for EtOH withdrawal and Compazine/Zofran for nausea. At arrival to [facility], patient has 2 PIV (18g, 20g) for access. CT scan of the abdomen and pelvis demonstrated findings consistent with esophageal varices / portal HTN, possible pancreatitis, and gastroduodenitis. ROS: positive- Headache, chest pains, chills, abdominal pain, melena, decreased appetite, polyuria,hematuria; negative- fever He states that he does not take any medications at home regularly. No Known Allergies No family history on file. Social History He is a daily 12 pack drinker, lives at home alone, does use marijuana and cocaine but no IVDU. He lives at home alone and states that he is not . 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 Objective Scheduled Medications: pantoprazole 40 mg intravenous Q24H FANNY sodium chloride 0.9% 0.5-20 mL intra-catheter Q8H FANNY PRN Medications: sodium chloride 0.9% Vitals: Most Recent: Vitals: 02/21/19 0548 BP: (!) 173/109 Pulse: 79 Resp: 17 Temp: 36.1 ??C (97 ??F) SpO2: 24hr Min/Max: Temp Min: 36.1 ??C (97 ??F) Max: 36.1 ??C (97 ??F) Pulse Min: 79 Max: 86 BP Min: 173/109 Max: 173/109 Resp Min: 17 Max: 19 SpO2 Min: 98 % Max: 98 % LDA: 20G PIV 18G PIV I/O: No intake or output data in the 24 hours ending 02/21/19 0756 Physical exam: General: alert and oriented x1 (year 1989, knows he is at hospital), somnolent, cooperative with exam. Not jaundiced. Neurological: cranial nerves II-XII grossly intact, no focal motor or sensory deficits. No asterixis. Psych: mood and affect are congruent. HEENT: head atraumatic, pupils equal and reactive to light, mucous membranes tacky, no cervical lymphadenopathy. Lungs: lungs clear to auscultation bilaterally. Heart: regular rate and rhythm, S1 and S2 heard, no murmurs. Abdomen: Bowel sounds heard. Soft, non-tender, and non-distended. No overt ascites. Extremities: no lower extremity pitting edema. : return of only a small amount of brown stool on rectal exam, guaiac positive. No internal hemorrhoids Were palpated. Vascular: radial pulses palpable bilaterally. Skin: warm, dry, and well-perfused. R upper eyelid erythema and bruising noted. Tattoos presents onfingers bilaterally. Assessment/Plan Hepatitis C Assessment & Plan - Per OSH records followed by a GI physician Dr. Douglas and treated for this. Current status unkown. - Hepatitis panel Polysubstance abuse (CMS/HCC) Assessment & Plan Etiology of cirrhosis unclear if 2/2 to alcohol abuse or HCV - Last drink approximately 24h ago - Has previously experienced withdrawals with delirium tremens - WA protocol - UDS Cirrhosis (CMS/HCC) Assessment & Plan - No les ascites, no paracentesis for now - RUQ with dopplers - Ammonia - Lipase Hematochezia Assessment & Plan - Small non-bloody BM when in ICU Hematemesis Assessment & Plan - No episodes of vomiting upon arrival to ICU - GI service has been consulted for evaluation for possible scope - Continuing Octreotide drip - Will bolus fluids as necessary - IV Pantoprazole - NPO for now - Treating with Ceftriaxone Code Status: Full Code F (Feeding):NPO A (Analgesia): N/A S (Sedation): Ativan PRN (for EtOH withdrawal) T (Thromboembolic) ppx: SCDs H (Head of Bed Elevation): 30 U (stress Ulcer ppx): Protonix IV G (Glycemic control): N/A Reilly Oneill PGY-1 02/21/2019 11:07 AM [phone] Cosigned by Capo Aguilera MD at 02/21/2019 4:32 PM CDT Associated attestation - Capo Aguilera MD - 02/21/2019 4:32 PM CDT Critical Care Time: I have spent 18 minutes in full attendance with this critically ill patient making frequent reassessments and decisions regarding this patient's complex medical care. Critical care time was exclusive of separately billable procedures, treating other patients and teaching time. Critical care was necessary to treat or prevent imminent or life-threatening deterioration of the following conditions:cirrhosis and gib My Assessment and Plan:plan for cirrhosis and gib is antibiotics, follow cultures, gi team eval, serial cbc, transfuse to Hg > 7, monitor for etoh withdrawal Attending Documentation: as above I have seen and examined this patient on the day of service. I have reviewed and confirmed the history, physical exam, laboratory and radiographic data with the house staff as documented in the ICU resident note. I have reviewed and discussed my treatment plan with the ICU team and other medical/publicity consultant staff. documented in this encounter Procedure Notes * Phi Vasquez MD - 02/24/2019 7:46 AM CDTAssociated Order(s): EGD [facility] Patient Name: Chester Dubose Procedure Date: 02/24/2019 7:46 AM Date of : 1970 Admit Type: Inpatient Age: 48 Gender: Male Attending MD: Phi Vasquez M.D. Room: [facility] POD 5 ROOM 224 Note Status: Finalized Procedure: Upper GI endoscopy Indications: Hematemesis, Melena Referring MD: Tanya Gant M.D. Providers: Phi Vasquez M.D., Amrit Painter M.D. Comorbidities HCV cirrhosis, active alcohol-use disorder Medicines: Monitored Anesthesia Care Complications: No immediate complications. Estimated Blood Loss: Estimated blood loss: none. Procedure: Pre-Anesthesia Assessment: - Immediately prior to administration of medications, the patient was re-assessed for adequacy to receive sedatives. The benefits, risks, and alternatives to the procedure and sedation were discussed and informed consent was obtained. The scope was passed under direct vision. The GIF [id number] endoscope was introduced through the mouth, and advanced to the second part of duodenum. The upper GI endoscopy was accomplished without difficulty. The patient tolerated the procedure well. Findings: The Z-line was regular and was [...] recently bled esophageal varices. These were successfully banded. - Portal hypertensive gastropathy. Recommendation: - Can discontinue octreotide infusion and start a non-selective beta sparkle (e.g. nadolol 20 mg qday) with dosage titrated by the heart rate. - Repeat upper endoscopy in 4 weeks for endoscopic band ligation. - Full liquid diet today, mechanical soft diet tomorrow and then advanced as tolerated afterwards. - Further recommendations per inpatient GI service. Attending Participation: I was present and participated during the entire procedure from insertion to removal of the endoscope. Phi Vasquez M.D. 02/24/2019 8:55:01 AM Number of Addenda: 0 Note Initiated On: 02/24/2019 7:46 AM Recognized by the [employer] for promoting quality in endoscopy documented in this encounter Consult Notes * Lauren Bates MSW - 02/24/2019 1:34 PM CDTAssociated Order(s): IP CONSULT TO SOCIAL WORK SW responding to consult for chemical dependency resources. SW met with pt at bedside. Pt stated heis interested in resources to help quit drinking. SW provided pt with a listing of local chemical dependency resources and reviewed the list with pt. SW emphasized the number for [employer] as pt can get connected to a local meeting right away. Pt voiced understanding that he would be responsible for contacting chemical dependency program in order to complete the assessment process for potential admission. No further SW needs at this time. PIPER More[place] #[phone] * Lawanda Cohen MD PhD - 02/21/2019 9:23 AM CDT General GI Initial Consult Subjective Patient is a 48 y.o. male with chief complaint of GI bleeding. Reason for consult: GI bleed, chirrosis Requesting Provider: Carlos Rojo MD HPI: 48 y.o. male with history of Hep C infection (tx unknown) who presented from OSH for hematemesis and melena. Pt had 4 episodes of hematemesis and melenia 2 days ago and he presented to OSH. Also has upper quadrant pain and poor appetite. No dysphagia or diarrhea. Pt reports having 6 drinks daily (last 02/19/19), also uses MJ and cocaine. ?? Per chart, INR 1.5 and Hb 11.6 at OSH (no transfusion). CTA/P at OSH c/w cirrhosis and portal hypertension. Sarted on a Protonix gtt, Octreotide gtt, and IVF, also received Ativan for EtOH withdrawal. Pt states he had an EGD at OSH for GI bleeding 8 months ago, no record available. VSS upon arrival at [facility] ICU, repeat hbg 10.1-->9.5, plt 81, INR 1.63 at [facility]. No hematemesis or melenia after arrival at [facility]. U/S showed diffuse hepatic steatosis and cirrhosis, retrograde portal flow without portal vein thrombosis Pt is being transferred to the floor per ICU team. Pt had a brownish BM in the ICU today. I have reviewed the patient's records in [employer] and [employer]: my findings are summarized above. No past medical history on file. No past surgical history on file. No medications prior to admission. No Known Allergies Social History Tobacco Use ??? Smoking status: Not on file Substance Use Topics ??? Alcohol use: Not on file ??? Drug use: Not on file No family history on file. Review of Systems: As outlined in HPI; all other systems reviewed and negative. Vitals: 24hr Min/Max: Temp Min: 36.1 ??C (97 ??F) Max: 36.1 ??C (97 ??F) Pulse Min: 79 Max: 86 BP Min: 144/91 Max: 173/109 Resp Min: 14 Max: 19 SpO2 Min: 95 % Max: 98 % Most Recent : Vitals: 02/21/19 0700 BP: 144/91 Pulse: 80 Resp: 17 Temp: SpO2: 97% No intake/output data recorded. No intake/output data recorded. Objective Physical Exam: General: chronically ill appearing male in no acute distress ENT: MMM, oropharynx clear Eyes: sclera nonicteric, EOMI Neck: supple, no LAD CV: RRR, normal S1/S2, no m/r/g, no edema Pulm: CTAB without wheezing or crackles Abd: distended, TTP at epigastrium, no fluid wave Ext: WWP, no clubbing or cyanosis Neuro: No focal deficits, alert and awake Skin: Warm, dry, no rashes Psych: Normal mood and affect Lab/Radiology/Diagnostic Review: Recent Results (from the past 24 hour(s)) Comprehensive metabolic panel Collection Time: 02/21/19 6:04 AM Result Value Ref Range Sodium 145 135 - 145 mmol/L Potassium, pl 4.9 3.3 - 4.9 mmol/L Chloride 111 (H) 97 - 110 mmol/L CO2 27 22 - 32 mmol/L Anion gap 7 2 - 15 mmol/L BUN 19 8 - 25 mg/dL Creatinine 0.70 (L) 0.80 - 1.30 mg/dL Glucose 126 70 - 199 mg/dL Calcium 8.2 (L) 8.5 - 10.3 mg/dL Bilirubin, total 2.4 (H) 0.1 - 1.2 mg/dL Protein, pl 6.9 6.5 - 8.5 g/dL Albumin 3.0 (L) 3.5 - 5.0 g/dL Alk phos 93 40 - 130 Units/L ALT 44 7 - 55 Units/L AST 159 (H) 10 - 50 Units/L Magnesium Collection Time: 02/21/19 6:04 AM Result Value Ref Range Magnesium 1.8 1.4 - 2.5 mg/dL Phosphorus Collection Time: 02/21/19 6:04 AM Result Value Ref Range Phosphorus, pl 3.2 2.3 - 4.5 mg/dL Lactate Collection Time: 02/21/19 6:04 AM Result Value Ref Range Lactate 1.5 0.7 - 2.0 mmol/L Protime-INR Collection Time: 02/21/19 6:04 AM Result Value Ref Range PT 17.8 (H) 8.6 - 13.0 sec INR 1.63 (H) 0.80 - 1.20 CBC with auto differential Collection Time: 02/21/19 6:04 AM Result Value Ref Range WBC 4.8 3.8 - 9.9 K/cumm Hgb 10.1 (L) 13.0 - 17.5 g/dL Hct 31.4 (L) 38.9 - 50.3 % Plt 81 (L) 150 - 400 K/cumm MPV 10.7 9.1 - 12.3 fL RBC 3.05 (L) 4.30 - 5.80 M/cumm MCV 103.0 (H) 81.3 - 96.4 fL MCH 33.1 27.1 - 33.3 pg MCHC 32.2 (L) 32.3 - 35.7 g/dL RDW CV 15.4 (H) 11.1 - 14.9 % RDW SD 58.4 (H) 35.7 - 48.1 fL NRBC abs 0.00 0.00 - 0.01 K/cumm Differential, auto Collection Time: 02/21/19 6:04 AM Result Value Ref Range Neutrophil abs 2.8 1.7 - 6.5 K/cumm Imm gran abs 0.0 0.0 - 0.1 K/cumm Lymphocyte abs 1.1 0.8 - 3.3 K/cumm Monocyte abs 0.7 0.2 - 0.8 K/cumm Eosinophil abs 0.0 0.0 - 0.5 K/cumm Basophil abs 0.0 0.0 - 0.1 K/cumm Neutrophil pct 59.2 % Imm gran pct 0.2 % Lymphocyte pct 23.3 % Monocyte pct 15.3 % Eosinophil pct 1.0 % Basophil pct 1.0 % Type and screen Collection Time: 02/21/19 6:28 AM Result Value Ref Range Xiang, indirect Negative ABO Rh O Positive No results found. Assessment /Plan 48 y.o. male with history of Hep C infection (tx unknown), alcohol use disorder, and likely cirrhosis on imaging who presented from OSH for hematemesis and melena, last episode was yesterday, VSS, has not require blood transfusion. C/f variceal bleeding, other ddx including PUD/gastritis, esophagitis, Ann-Valdes tear. Pt was initially in the ICU after the transfer, but is now on the list to [facility]. - maintain 2 large IVs - T/S, trend CBC, transfuse to maintain hbg 7-8 - bid IV PPI, octreotide gtt, CTX for SBP ppx - NPO for now - Emergent EGD if rebleeds; otherwise EGD on Sunday - liver f/u This consult is not final until staffed with an attending. The General GI service will continue to follow. Please do not hesitate the contact the GI service with any questions or concerns. We can be reached Sunday through Sunday from 0800 to 1700 at [phone]. From 1700 to 0800 Sunday through Sunday and all day Sunday/Sunday, we can be reached at [phone]. Lawanda Cohen MD PhD Gastroenterology Fellow Cosigned by Isidro Lozano MD at 02/21/2019 10:54 PM CDT Associated attestation - Isidro Lozano MD - 02/21/2019 10:54 PM CDT I have seen and examined the patient on 02/21/19. I agree with the findings and plan of care as documented in the resident's/fellow's note. 48-year-old man with history of HCV and alcohol use disorder with cirrhosis (based on imaging) and possible portal hypertension (thrombocytopenia and retrograde portal flow on Doppler) presented to outside hospital with reported hematemesis and melena, last episode was yesterday. He reports prior EGD but not sure about the details. He is hemodynamically stable with hemoglobin at baseline. Continue octreotide, PPIs, and antibiotics. Will plan for EGD on Sunday, or earlier if he shows any evidence of hemodynamic instability. He should be on thiamine replacement. It will be helpful to get the records from the prior hospitalization. Remaining recommendations as per Dr. Cohen. documented in this encounter Nursing Notes * Kristi Casas RN - 02/25/2019 3:10 PM CDT Discharge instructions reviewed with pt. Pt verbalizes understanding. Pt to seed cone picker prescriptions at [facility] in [place], [place]. To be transported home per friend. Pt discharged to home. * Ethan Kowalski RN - 02/23/2019 4:30 PM CDT Received patient from ICU per bed in stable condition but weak, skin intact. With [address] All belongings locked in the bedside drawer. No significant changes from previous assessment. * Radha Gómez RN - 02/23/2019 4:17 PM CDT Patient transferred to [facility] via bed. Report given to REJI Long. Octreotide gtt continuous infusion.Pt with 2 PIV. No wounds. Belongings include hat, pants, shirt, shoes, keys, wallet, pocket knife, $16 in wallet, ID, and card. Belongings list read to patient and patient agrees. A&O x3-4. Room air. VSS. Labs stable. * Bibi Laird RN - 02/21/2019 7:42 AM CDT Pt admitted from [facility] at 0545 per EMS. Pt has 2 PIV with octreotide and protonix running on arrival. Both meds stopped at this time. Blood cultures drawn x 2. Pt refused MICU bath. Pt belongings: Camo hat Camo shorts belt repairer Blue shirt Flip flops Pt belongings IN SAFE: $16 lim 1 debit card in [facility] with set of keys documented in this encounter Miscellaneous Notes * Plan of Care - Kristi Casas RN - 02/25/2019 10:08 AM CDT Goals: Clinical Goals for the Shift: Monitor vitals and labs. Monitor for any bleeding. Pain control. Summary: Vitals and labs monitored as ordered. No signs or symptoms of bleeding noted. PRN tylenol given for mild epigastric discomfort. * Plan of Care - Gerard Monte RN - 02/25/2019 4:18 AM CDT Goals: Clinical Goals for the Shift: Monitor vitals and labs. Monitor for bleeding. Scope today. Safety. Summary: vss; hgb stable; no c/o pain, no signs of bleeding * Plan of Care - Kristi Casas RN - 02/24/2019 10:04 AM CDT Goals: Clinical Goals for the Shift: Monitor vitals and labs. Monitor for bleeding. Scope today. Safety. Summary: Vitals and labs monitored as ordered. No signs/symptoms of bleeding noted. Pt uses call light for assistance before getting out of bed. * Plan of Care - Isabela Horn RN - 02/24/2019 4:53 AM CDT Problem: Health Behavior: Goal: Understanding of discharge needs will improve Outcome: Progressing Problem: Lack of Knowledge: Goal: Knowledge on safety and abstaining from self-injurious behavior will increase Outcome: Progressing Problem: Health Behavior: Goal: Ability to manage health-related needs will improve Outcome: Progressing Problem: Low Risk for Self-Injurious Behavior: Goal: Ability to remain free from injury will improve Description (Low Risk) Outcome: Progressing Problem: Activity: Goal: Mobility will improve Outcome: Progressing Problem: Lack of Knowledge: Goal: Understanding of ways to prevent future skin breakdown will improve Outcome: Progressing Goal: Ability to identify appropriate dietary choices will improve Outcome: Progressing Problem: Nutritional: Goal: Dietary intake will improve Outcome: Progressing Goal: Ability to maintain a balanced intake and output will improve Outcome: Progressing Problem: Skin Integrity: Goal: Risk for impaired skin integrity will decrease Outcome: Progressing Goal: Ability to demonstrate warm and dry skin will improve Outcome: Progressing Goal: Circulation will improve to fullest extent possible Outcome: Progressing Problem: Activity: Goal: Risk for activity intolerance will decrease Outcome: Progressing Problem: Lack of Knowledge: Goal: Knowledge of diagnostic tests will improve Outcome: Progressing Goal: Knowledge of disease or condition will improve Outcome: Progressing Goal: Knowledge of safety precautions will improve Outcome: Progressing Goal: Knowledge of the prescribed therapeutic regimen will improve Outcome: Progressing Problem: Health Behavior: Goal: Ability to state signs and symptoms to report to health care provider will improve Outcome: Progressing Problem: Physical Regulation: Goal: Ability to maintain clinical measurements within normal limits will improve Outcome: Progressing Problem: Infection Risk: Goal: Will remain free from infection Outcome: Progressing Problem: Safety: Goal: Ability to remain free from injury will improve Outcome: Progressing Goal: Will remain free from falls Outcome: Progressing Problem: Self-Care: Goal: Ability to participate in self-care as condition permits will improve Outcome: Progressing Problem: Sensory: Goal: Pain level will decrease Outcome: Progressing Goal: Ability to develop a pain control plan will improve Outcome: Progressing Problem: Skin Integrity: Goal: Risk for impaired skin integrity will decrease Outcome: Progressing Problem: Tissue Perfusion: Goal: Risk factors for ineffective tissue perfusion will decrease Outcome: Progressing Goals: Clinical Goals for the Shift: vitals, labs, npo at midnight, pain control, safety, rest Summary: pt progressing towards goals, vitals remain stable to pt baseline, labs drawn and monitored, NPO since midnight for EGD, pain adequately controlled. Pt remains safe and resting comfortably. Will continue to monitor * Assessment & Plan Note - Juancho Rodriguez MD - 02/23/2019 1:46 PM CDT Associated Problem(s): Polysubstance abuse (CMS/HCC) (HCC) Reportedly drinks 6 24 oz beers daily, as well as recent marijuana use and cocaine use (6 months prior to presentation). - UDS with cannabinoids and opiods - Ativan PRN - will discontinue - Social work consult for resources to quit drinking * Assessment & Plan Note - Juancho Rodriguez MD - 02/23/2019 1:46 PM CDT Associated Problem(s): Positive hepatitis C antibody test Per OSH records, follows with Dr. Douglas for this. Hepatitis panel without Hep A, Hep B infection and no Hep B immunity. - Plan for Hep B vaccine * Assessment & Plan Note - Juancho Rodriguez MD - 02/23/2019 1:44 PM CDT Associated Problem(s): Hematemesis (Resolved 12/01/2020) Reports four episodes of bright red blood [...] Continue Ceftriaxone - planned stop date 02/25 * Assessment & Plan Note - Juancho Rodriguez MD - 02/23/2019 1:42 PM CDT Associated Problem(s): Alcoholic cirrhosis of liver without ascites (CMS/HCC) (HCC) Etiology possibly secondary to alcohol vs HCV. CT A/P with findings consistent with cirrhosis and portal HTN. RUQ US negative for clot. Ammonia was elevated > 100, but patient has not been floridly encephalopathic. - Monitor for accumulation of ascities - Starting nadolol 20 mg daily per GI recommendations - uptitrating to 40mg daily for discharge * Plan of Care - Radha Gómez RN - 02/23/2019 7:40 AM CDT Problem: Health Behavior: Goal: Understanding of discharge needs will improve Outcome: Progressing Problem: Lack of Knowledge: Goal: Knowledge on safety and abstaining from self-injurious behavior will increase Outcome: Progressing Problem: Health Behavior: Goal: Ability to manage health-related needs will improve Outcome: Progressing Problem: Low Risk for Self-Injurious Behavior: Goal: Ability to remain free from injury will improve Description (Low Risk) Outcome: Progressing Problem: Activity: Goal: Mobility will improve Outcome: Progressing Problem: Lack of Knowledge: Goal: Understanding of ways to prevent future skin breakdown will improve Outcome: Progressing Goal: Ability to identify appropriate dietary choices will improve Outcome: Progressing Problem: Nutritional: Goal: Dietary intake will improve Outcome: Progressing Goal: Ability to maintain a balanced intake and output will improve Outcome: Progressing Problem: Skin Integrity: Goal: Risk for impaired skin integrity will decrease Outcome: Progressing Goal: Ability to demonstrate warm and dry skin will improve Outcome: Progressing Goal: Circulation will improve to fullest extent possible Outcome: Progressing Problem: Activity: Goal: Risk for activity intolerance will decrease Outcome: Progressing Problem: Lack of Knowledge: Goal: Knowledge of diagnostic tests will improve Outcome: Progressing Goal: Knowledge of disease or condition will improve Outcome: Progressing Goal: Knowledge of safety precautions will improve Outcome: Progressing Goal: Knowledge of the prescribed therapeutic regimen will improve Outcome: Progressing Problem: Health Behavior: Goal: Ability to state signs and symptoms to report to health care provider will improve Outcome: Progressing Problem: Physical Regulation: Goal: Ability to maintain clinical measurements within normal limits will improve Outcome: Progressing Problem: Infection Risk: Goal: Will remain free from infection Outcome: Progressing Problem: Safety: Goal: Ability to remain free from injury will improve Outcome: Progressing Goal: Will remain free from falls Outcome: Progressing Problem: Self-Care: Goal: Ability to participate in self-care as condition permits will improve Outcome: Progressing Problem: Sensory: Goal: Pain level will decrease Outcome: Progressing Goal: Ability to develop a pain control plan will improve Outcome: Progressing Problem: Skin Integrity: Goal: Risk for impaired skin integrity will decrease Outcome: Progressing Problem: Tissue Perfusion: Goal: Risk factors for ineffective tissue perfusion will decrease Outcome: Progressing Goals: Clinical Goals for the Shift: no bleeding, TTF, control anxiety, nausea, and pain Summary: VSS. Waiting to TTF. No bleeding in 2 days. Pain controlled with tylenol. Nausea controlled with antiemetics. Anxiety controlled with medication. * Hospital Course - Osbaldo, Jaison Reynolds MD - 02/22/2019 3:10 PM CDT GI Bleed Reported hematemesis and hematochezia at home prior to OSH presentation. CT at OSH reportedly with e/o esophageal varices. While here, he had small bloody BM 02/21. No e/o hematemesis, only ongoing retching and some non bloody emesis. Pt was started on octreotide gtt, CTX and IV PPI. Kept NPO initially. Hgb remained stable ~9 and pt was hungry, so was allowed to advance to clear liquid diet on 02/22,tolerated well. GI saw pt; he was started on PPI, octreotide, and ceftriaxone. Given his stable clinical status performed EGD on 02/24, which was notable for esophageal varices without any obvious stigmata of bleeding. Due to lack of alternative etiology, this was presumed to be the source. Two varices were banded. Of note, 1/2 bcx bottles from 02/21 grew likely coag neg staph. May be contaminant as pt looks well otherwise. Repeat bcx x 2 unremarkable. He was started on nadolol 20mg daily followingEGD for variceal prophylaxis. He should follow up with EGD in 4 weeks, to be arranged by GI team. Medications were sent to his local pharmacy in [place], [place]. 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 No e/o ascites. NH3 115 here but pt remained aox3 without encephalopathy. Lipase wnl. CT at OSH reportedly with e/o esophageal varices. RUQ with dopplers here showed steatosis and cirrhosis, no portal vein thrombosis. Social work was consulted to address smoking cessation and provided the patient with resources, he was started on a nicotine patch. Follow-up with GI was arranged. Hepatitis C Per OSH records followed by a GI physician Dr. Douglas and treated for this. Current status unkown. Hepatitis panel drawn here: HAV Ab neg. Pt is HBV non-immune. HCV Ab +. Alcohol use disorder/Polysubstance abuse Last drink 02/20. UDS+ opiates, cannabinoid. Reports has previously experienced withdrawals with delirium tremens but no seizures. Pt had PRN Ativan ordered; he did not exhibit any signs or symptoms concerning for DT. * Significant Event - Ranjan Enriquez MD - 02/22/2019 2:51 PM CDT ###MICU transfer to floor### HPI Chester Dubose is a 48 y.o. male with PMH of cirrhosis, active Hep C infection (treated at OSH, duration and status unknown), s/p ORIF for distal radius fracture 09/2018 at OSH. Per outside recordshe also has a history of previous suicide attempt and delirium tremens without seizures. ?? He presented to [facility] following 4 episodes of hematemesis and 4 episodes of melenic stools beginning two days ago (PMH largely unknown as patient does not regularly follow with doctor). Per patient, the emesis was bright red in color (per OHS, 100cc of emesis) and stools were dark in color concerningfor blood. ?? He drinks 6 24oz beers daily (last drink 02/19/19). Patient denies hard EtOH use, as it makes him violent. He smokes marijuana daily (last used 02/19/19), and smoked cocaine 6-8 months ago. Denies IVDU. Further history is difficult to obtain as he is somnolent and wanting to sleep. ?? Of note, Patient INR 1.5 and Hb 11.6 (repeat 11.1) at [facility]. CT A/P was consistent with cirrhosis andportal hypertension. At [facility], patient was started on a Protonix gtt, Octreotide gtt, and NS 100cc/hr. He also received 4mg Ativan for EtOH withdrawal and Compazine/Zofran for nausea. At arrival to [facility], patient has 2 PIV (18g, 20g) for access. CT scan of the abdomen and pelvis demonstrated findings consistent with esophageal varices / portal HTN, possible pancreatitis, and gastroduodenitis. Hematemesis, hematochezia Reported hematemesis and hematochezia at home prior to OSH presentation. CT at OSH reportedly with e/o esophageal varices. While here, had small bloody BM 02/21. No e/o hematemesis, only ongoing retching and some non bloody emesis. Pt was started on octreotide gtt, CTX and IV PPI. Kept NPO initially. Hgb remained stable ~9and pt was hungry, so was allowed to advance to clear liquid diet on 02/22, tolerated well. GI saw ptand given his stable clinical status, recommended EGD tentatively 02/24. Of note, 1/2 bcx bottles from 02/21 grew likely coag neg staph. May be contaminant as pt looks well otherwise. Repeat bcx x 2 sent. -cont octreotide, CTX, IV PPI until EGD -f/u bcx speciation -clear liq diet for now -tentatively EGD 02/24, unless decompensates -hgb q12h -ADAT after EGD -should DC on PPI for gastroduodenitis Cirrhosis (CMS/HCC) 2/2 HCV vs etoh. No e/o ascites. NH3 115 here but pt remained aox3 without encephalopathy. Lipase wnl. CT at OSH reportedly with e/o esophageal varices. RUQ with dopplers here showed steatosis and cirrhosis, no portal vein thrombosis. -should DC on propranolol for esophageal varices -consider DC on lactulose prn for home -encourage outpt GI FU for HCV, encourage etoh cessation -needs serial EGDs and RUQ US Hepatitis C Per OSH records followed by a GI physician Dr. Douglas and treated for this. Current status unkown. Hepatitis panel drawn here: HAV Ab neg. Pt is HBV non-immune. HCV Ab +. -encourage outpt FU for HCV -needs HBV vaccination outpt Polysubstance abuse (CMS/HCC) Last drink 02/20. UDS+ opiates, cannabinoid. Reports has previously experienced withdrawals with delirium tremens but no seizures. Pt didn't exhibit etoh withdrawal sx while in MICU. Had ativan prn ordered. -encourage cessation, if contemplative consider tox c/s on floor * Plan of Care - Radha Gómez RN - 02/22/2019 9:40 AM CDT Problem: Health Behavior: Goal: Understanding of discharge needs will improve Outcome: Progressing Problem: Lack of Knowledge: Goal: Knowledge on safety and abstaining from self-injurious behavior will increase Outcome: Progressing Problem: Health Behavior: Goal: Ability to manage health-related needs will improve Outcome: Progressing Problem: Low Risk for Self-Injurious Behavior: Goal: Ability to remain free from injury will improve Description (Low Risk) Outcome: Progressing Problem: Activity: Goal: Mobility will improve Outcome: Progressing Problem: Lack of Knowledge: Goal: Understanding of ways to prevent future skin breakdown will improve Outcome: Progressing Goal: Ability to identify appropriate dietary choices will improve Outcome: Progressing Problem: Nutritional: Goal: Dietary intake will improve Outcome: Progressing Goal: Ability to maintain a balanced intake and output will improve Outcome: Progressing Problem: Skin Integrity: Goal: Risk for impaired skin integrity will decrease Outcome: Progressing Goal: Ability to demonstrate warm and dry skin will improve Outcome: Progressing Goal: Circulation will improve to fullest extent possible Outcome: Progressing Goals: Clinical Goals for the Shift: stabilize bleeding, TTF Summary: VSS, ready to TTF. To be scoped on Sunday. Tolerating clears okay, still nauseous requiring medication. * Plan of Taran - Anil Valadez RN - 02/21/2019 10:14 PM CDT Problem: Health Behavior: Goal: Understanding of discharge needs will improve Outcome: Progressing Problem: Lack of Knowledge: Goal: Knowledge on safety and abstaining from self-injurious behavior will increase Outcome: Progressing Problem: Health Behavior: Goal: Ability to manage health-related needs will improve Outcome: Progressing Problem: Low Risk for Self-Injurious Behavior: Goal: Ability to remain free from injury will improve Description (Low Risk) Outcome: Progressing Problem: Activity: Goal: Mobility will improve Outcome: Progressing Problem: Lack of Knowledge: Goal: Understanding of ways to prevent future skin breakdown will improve Outcome: Progressing Goal: Ability to identify appropriate dietary choices will improve Outcome: Progressing Problem: Skin Integrity: Goal: Risk for impaired skin integrity will decrease Outcome: Progressing Goal: Ability to demonstrate warm and dry skin will improve Outcome: Progressing Goal: Circulation will improve to fullest extent possible Outcome: Progressing Goals: Clinical Goals for the Shift: monitor labs, transfer to floor Summary: labs as noted, pt on active move list * Plan of Care - Ky Carranza, RN - 02/21/2019 1:32 PM CDT Case Management unable to perform initial interview, for discharge planning. Patient and or family unavailable at this time. CM will attempt at a later time. If any discharge planning needs arise, please call covering case loader operator. Patient admitted with: GIB Patient transferred from OSH. * Assessment & Plan Note - Reilly Oneill MD PhD - 02/21/2019 11:18 AM CDT Associated Problem(s): Alcoholic cirrhosis of liver without ascites (CMS/HCC) (HCC) 2/2 HCV vs etoh. No ascites. NH3 115 here. Lipase wnl - RUQ with dopplers showing steatosis and cirrhosis, no PVT * Assessment & Plan Note - Reilly Oneill MD PhD - 02/21/2019 11:18 AM CDT Associated Problem(s): Hematemesis (Resolved 12/01/2020) Reported hematemesis at home in s/o cirrhosis and esophageal varices. Here, having ongoing retching, some non bloody emesis. - No episodes of vomiting upon arrival to ICU -GI: tentatively EGD Sunday, unless decompensates - Octreotide drip, CTX (end date plan 02/25), IV PPI. -bcx 1/2 bottles with CoNS, contaminent -hgb q12h - been stable ~9 since arrival. -Continue CLD, NPO at [facility] [place] for possible EGD * Assessment & Plan Note - Reilly Oneill MD PhD - 02/21/2019 11:17 AM CDT Associated Problem(s): Positive hepatitis C antibody test - Per OSH records followed by a GI physician Dr. Douglas and treated for this. Current status unkown. - Hepatitis B surface Ab neg * Assessment & Plan Note - Reilly Oneill MD PhD - 02/21/2019 11:14 AM CDT Associated Problem(s): Hematochezia (Resolved 12/01/2020) - Small bloody BM 02/21, none since. See hematemesis * Assessment & Plan Note - Reilly Oneill MD PhD - 02/21/2019 11:13 AM CDT Associated Problem(s): Polysubstance abuse (CMS/HCC) (HCC) Etiology of cirrhosis unclear if 2/2 to alcohol abuse or HCV -Last drink 02/20. UDS+ opiates, cannabinoid - Has previously experienced withdrawals with delirium tremens - ativan prn * Plan of Care - Bibi Laird RN - 02/21/2019 7:47 AM CDT Problem: Health Behavior: Goal: Understanding of discharge needs will improve 02/21/2019 0747 by Bibi Laird RN Outcome: Progressing 02/21/2019 0735 by Bibi Laird RN Outcome: Progressing Problem: Lack of Knowledge: Goal: Knowledge on safety and abstaining from self-injurious behavior will increase 02/21/2019 0747 by Bibi Laird RN Outcome: Progressing 02/21/2019 0735 by Bibi Laird RN Outcome: Progressing Problem: Health Behavior: Goal: Ability to manage health-related needs will improve 02/21/2019 0747 by Bibi Laird RN Outcome: Progressing 02/21/2019 0735 by Bibi Laird RN Outcome: Progressing Problem: Low Risk for Self-Injurious Behavior: Goal: Ability to remain free from injury will improve Description (Low Risk) 02/21/2019 0747 by Bibi Laird RN Outcome: Progressing 02/21/2019 0735 by Bibi Laird RN Outcome: Progressing Problem: Activity: Goal: Mobility will improve 02/21/2019 0747 by Bibi Laird RN Outcome: Progressing 02/21/2019 0735 by Bibi Laird RN Outcome: Progressing Problem: Lack of Knowledge: Goal: Understanding of ways to prevent future skin breakdown will improve 02/21/2019 0747 by Bibi Laird RN Outcome: Progressing 02/21/2019 0735 by Bibi Laird RN Outcome: Progressing Goal: Ability to identify appropriate dietary choices will improve 02/21/2019 0747 by Bibi Laird RN Outcome: Progressing 02/21/2019 0735 by Bibi Laird RN Outcome: Progressing Problem: Nutritional: Goal: Dietary intake will improve 02/21/2019 0747 by Bibi Laird RN Outcome: Progressing 02/21/2019 0735 by Bibi Laird RN Outcome: Progressing Goal: Ability to maintain a balanced intake and output will improve 02/21/2019 0747 by Bibi Laird RN Outcome: Progressing 02/21/2019 0735 by Bibi Laird RN Outcome: Progressing Problem: Skin Integrity: Goal: Risk for impaired skin integrity will decrease 02/21/2019 0747 by Bibi Laird RN Outcome: Progressing 02/21/2019 0735 by Bibi Laird RN Outcome: Progressing Goal: Ability to demonstrate warm and dry skin will improve 02/21/2019 0747 by Bibi Laird RN Outcome: Progressing 02/21/2019 0735 by Bibi Laird RN Outcome: Progressing Goal: Circulation will improve to fullest extent possible 02/21/2019 0747 by Bibi Laird RN Outcome: Progressing 02/21/2019 0735 by Bibi Laird RN Outcome: Progressing Goals: Clinical Goals for the Shift: Admit to MICU * Plan of Care - Bibi Laird RN - 02/21/2019 7:35 AM CDT Problem: Health Behavior: Goal: Understanding of discharge needs will improve Outcome: Progressing Problem: Lack of Knowledge: Goal: Knowledge on safety and abstaining from self-injurious behavior will increase Outcome: Progressing Problem: Health Behavior: Goal: Ability to manage health-related needs will improve Outcome: Progressing Problem: Low Risk for Self-Injurious Behavior: Goal: Ability to remain free from injury will improve Description (Low Risk) Outcome: Progressing Problem: Activity: Goal: Mobility will improve Outcome: Progressing Problem: Lack of Knowledge: Goal: Understanding of ways to prevent future skin breakdown will improve Outcome: Progressing Goal: Ability to identify appropriate dietary choices will improve Outcome: Progressing Problem: Nutritional: Goal: Dietary intake will improve Outcome: Progressing Goal: Ability to maintain a balanced intake and output will improve Outcome: Progressing Problem: Skin Integrity: Goal: Risk for impaired skin integrity will decrease Outcome: Progressing Goal: Ability to demonstrate warm and dry skin will improve Outcome: Progressing Goal: Circulation will improve to fullest extent possible Outcome: Progressing Goals: Clinical Goals for the Shift: Admit to MICU documented in this encounter Plan of Treatment Not on file documented as of this encounter Procedures Procedure Name Priority Date/Time Associated Diagnosis Comments DIFFERENTIAL AUTO Routine 02/24/2019 9:20 PM CDT CBC WITH AUTO DIFFERENTIAL Routine 02/24 9:20 PM CDT PHOSPHORUS Timed 02/24/2019 9:20 PM CDT MAGNESIUM Timed 02/24/2019 9:20 PM CDT BASIC METABOLIC PANEL Timed 02/24/2019 9:20 PM CDT ESOPHAGOGASTRODUODENOSCOPY B AND LIGATION 02/24/2019 8:22 AM CDT Hematemesis, presence of nausea not specified EGD 02/24/2019 7:46 AM CDT DIFFERENTIAL AUTO Timed 02/24/2019 4:35 AM CDT CBC WITH AUTO DIFFERENTIAL Timed 02/24 4:35 AM CDT PHOSPHORUS Routine 02/24/2019 4:35 AM CDT MAGNESIUM Routine 02/24/2019 4:35 AM CDT BASIC METABOLIC PANEL Routine 02/24/2019 4:35 AM CDT DIFFERENTIAL AUTO Timed 02/23/2019 5:06 PM CDT CBC WITH AUTO DIFFERENTIAL Timed 02/23 5:06 PM CDT DIFFERENTIAL AUTO Timed 02/23/2019 5:18 AM CDT CBC WITH AUTO DIFFERENTIAL Timed 02/23 5:18 AM CDT PHOSPHORUS Routine 02/23/2019 5:18 AM CDT MAGNESIUM Routine 02/23/2019 5:18 AM CDT BASIC METABOLIC PANEL Routine 02/23/2019 5:18 AM CDT DIFFERENTIAL AUTO Timed 02/22/2019 5:30 PM CDT CBC WITH AUTO DIFFERENTIAL Timed 02/22 5:30 PM CDT HEPATITIS B SURFACE ANTIBODY (IMMUNE STATUS) Routine 02/22/2019 12:42 PM CDT BLOOD CULTURE STAT 02/22/2019 12:42 PM CDT BLOOD CULTURE STAT 02/22/2019 12:42 PM CDT TRANSTHORACIC ECHO (TTE) COMPLETE W DOPPLER/CF WO CONTRAST Routine 02/22/2019 11:57 AM CDT DIFFERENTIAL AUTO Timed 02/22/2019 6:46 AM CDT CBC WITH AUTO DIFFERENTIAL Timed 02/22 6:46 AM CDT CBC WITHOUT DIFFERENTIAL Timed 019 11:12 PM CDT BASIC METABOLIC PANEL Routine 02/21/2019 11:12 PM CDT CBC WITHOUT DIFFERENTIAL Timed 019 5:51 PM CDT ECG 12-LEAD STAT 02/21/2019 3:34 PM CDT DRUGS OF ABUSE SCREEN, URINE WITH REFLEX CONFIRMATION Routine 02/21/2019 2:58 PM CDT OPIATES CONFIRMATION MS, URINE Routine 0 02/21/2019 2:58 PM CDT URINALYSIS AND REFLEX TO MICROSCOPIC AND CULTURE Routine 02/21/2019 2:58 PM CDT URINALYSIS, MICROSCOPIC ONLY Routine 11/2018 2:58 PM CDT PROTIME-INR Routine 02/21/2019 12:55 PM CDT CBC WITHOUT DIFFERENTIAL Timed 019 11:48 AM CDT XR CHEST 1 VIEW ED Urgent/IP Urgent 02/21/2019 9:49 AM CDT B CHECK SAMPLE STAT 02/21/2019 9:41 AM CDT LIPASE STAT 02/21/2019 9:41 AM CDT AMMONIA STAT 02/21/2019 9:41 AM CDT US LIVER W COMPLETE DOPPLER ED Urgent/IP Urgent 02/21/2019 8:43 AM CDT BLOOD CULTURE Routine 02/21/2019 6:28 AM CDT BLOOD CULTURE Routine 02/21/2019 6:28 AM CDT TYPE AND SCREEN Timed 02/21/2019 6:28 AM CDT LACTATE STAT 02/21/2019 6:04 AM CDT DIFFERENTIAL AUTO STAT 02/21/2019 6:04 AM CDT CBC WITH AUTO DIFFERENTIAL STAT 02/21 6:04 AM CDT PROTIME-INR STAT 02/21/2019 6:04 AM CDT INFECTION PREVENTION MRSA ON LY (STAPHYLOCOCCUS AUREUS) CULTURE Routine 02/21/2019 6:04 AM CDT PHOSPHORUS STAT 02/21/2019 6:04 AM CDT MAGNESIUM STAT 02/21/2019 6:04 AM CDT COMPREHENSIVE METABOLIC PANEL STAT 6:04 AM CDT HEPATITIS PANEL, ACUTE Routine 9 5:52 AM CDT documented in this encounter Results * Phosphorus (02/24/2019 9:20 PM CDT) Phosphorus, pl 3.2 2.3 - 4.5 mg/dL [facility] Comment:Hemolyzed; result ma y be falsely elevated. Blood specimen (specimen) 02/24/2019 9:20 PM CDT 02/24/2019 9:50 PM CDT us Colleen Damon MD LAB BLOOD ORDERABLES Final R esult [facility] [address] [place], [place] [id number] * Magnesium (02/24/2019 9:20 PM CDT) Magnesium 1.9 1.4 - 2.5 mg/dL [facility] Blood specimen (specimen) 02/24/2019 9:20 PM CDT 02/24/2019 9:50 PM CDT Colleen Damon MD LAB BLOOD ORDERABLES Final R esult [facility] [address] [place] [address] * Differential, auto (02/24/2019 9:20 PM CDT) Neutrophil abs 3.6 1.7 - 6.5 K/cumm [facility] Imm gran abs 0.0 0.0 - 0.1 K/cumm [facility] Lymphocyte abs 1.1 0.8 - 3.3 K/cumm [facility] Monocyte abs 0.6 0.2 - 0.8 K/cumm [facility] Eosinophil abs 0.2 0.0 - 0.5 K/cumm [facility] Basophil abs 0.0 0.0 - 0.1 K/cumm [facility] Neutrophil pct 65.1 % [facility] Comment: Interpretive Data Percent cell count reference ranges are not reported, since discordance with absolute values may lead to misinterpretation of CBC data. Current Interpretive Data was last revised on 2017. Imm gran pct 0.4 % [facility] Comment: Interpretive Data Percent cell count reference ranges are not reported, since discordance with absolute values may lead to misinterpretation of CBC data. Current Interpretive Data was last revised on 2017. Lymphocyte pct 19.7 % [facility] Comment: Interpretive Data Percent cell count reference ranges are not reported, since discordance with absolute values may lead to misinterpretation of CBC data. Current Interpretive Data was last revised on 2017. Monocyte pct 10.5 % [facility] Comment: Interpretive Data Percent cell count reference ranges are not reported, since discordance with absolute values may lead to misinterpretation of CBC data. Current Interpretive Data was last revised on 2017. Eosinophil pct 3.4 % [facility] Comment: Interpretive Data Percent cell count reference ranges are not reported, since discordance with absolute values may lead to misinterpretation of CBC data. Current Interpretive Data was last revised on 2017. Basophil pct 0.9 % [facility] Comment: Interpretive Data Percent cell count reference ranges are not reported, since discordance with absolute values may lead to misinterpretation of CBC data. Current Interpretive Data was last revised on 2017. Blood specimen (specimen) 02/24/2019 9:20 PM CDT 02/24/2019 9:49 PM CDT Colleen Damon MD LAB BLOOD ORDERABLES Final R esult [facility] [address] [place] [address] * (ABNORMAL) Basic metabolic panel (02/24/2019 9:20 PM CDT) Sodium 137 135 - 145 mmol/L [facility] Potassium, pl See Comment 3.3 - 4.9 mmol/L [facility] Comment:CRDT; Grossly Hemoly zed sample; Unable to test. Chloride 105 97 - 110 mmol/L [facility] CO2 24 22 - 32 mmol/L [facility] Anion gap 8 2 - 15 mmol/L [facility] BUN 3(L) 8 - 25 mg/dL [facility] Creatinine 0.62(L) 0.80 - 1.30 mg/dL [facility] Glucose 103 70 - 199 mg/dL [facility] [...] interpretive data was last revised 2017. Calcium 8.4(L) 8.5 - 10.3 mg/dL [facility] Blood specimen (specimen) 02/24/2019 9:20 PM CDT 02/24/2019 9:50 PM CDT Colleen Damon MD LAB BLOOD ORDERABLES Final R esult Performing Organization Address City/[facility] Co de Phone Number [facility] [address] [address] * (ABNORMAL) CBC with auto differential (02/24/2019 9:20 PM CDT) Pathologist [facility] WBC 5.5 3.8 - 9.9 K/cumm [facility] Hgb 10.0(L) 13.0 - 17.5 g/dL [facility] Hct 30.8(L) 38.9 - 50.3 % [facility] Plt 87(L) 150 - 400 K/cumm [facility] MPV 10.7 9.1 - 12.3 fL [facility] RBC 3.06(L) 4.30 - 5.80 M/cumm [facility] MCV 100.7(H) 81.3 - 96.4 fL [facility] MCH 32.7 27.1 - 33.3 pg [facility] MCHC 32.5 32.3 - 35.7 g/dL [facility] RDW CV 14.3 11.1 - 14.9 % [facility] RDW SD 51.7(H) 35.7 - 48.1 fL [facility] NRBC abs 0.00 0.00 - 0.01 K/cumm [facility] Blood specimen (specimen) 02/24/2019 9:20 PM CDT 02/24/2019 9:49 PM CDT Colleen Damon MD LAB BLOOD ORDERABLES Final R esult Performing Organization Address [facility]/ZIP Co de Phone Number [address] [address] * EGD (02/24/2019 7:46 AM CDT) Anatomical Region Laterality Modality Other Narrative Procedure Note Phi Vasquez MD - 02/24/2019 7:46 AM CDT [facility] Patient Name: Chester Dubose Procedure Date: 02/24/2019 7:46 AM Date of : 1970 Admit Type: Inpatient Age: 48 Gender: Male Attending MD: Phi Vasquez M.D. Room: [facility] POD 5 ROOM 224 Note Status: Finalized Procedure: Upper GI endoscopy Indications: Hematemesis, Melena Referring MD: Tanya Gant M.D. Providers: Phi Vasquez M.D., Amrit Painter M.D. Comorbidities HCV cirrhosis, active alcohol-use disorder Medicines: Monitored Anesthesia Care Complications: No immediate complications. Estimated Blood Loss: Estimated blood loss: none. Procedure: Pre-Anesthesia Assessment: - Immediately prior to administration ofmedications, the patient was re-assessed for adequacy to receive sedatives. The benefits, risks, and alternatives to theprocedure and sedation were discussed and informed consent was obtained. The scope was passed under direct vision.The GIF [id number] endoscope was introduced throughthe mouth, and advanced to the second part of duodenum.The upper GI endoscopy was accomplished withoutdifficulty. The patient tolerated the procedure well. Findings: The Z-line was regular and was found 44 cm from the incisors. Grade II varices were found in the lower third of the esophagus. Two bands were successfully placed with complete eradication, resultingin deflation of varices. There was no bleeding during, and at the end,of the procedure. Diffuse mildly congested mucosa was found in the entire examined stomach. This did not bleed with water jet but bled minimally after suction trauma. The cardia and gastric fundus were normal on retroflexion. There isno evidence of gastroesophageal or isolated gastric varices. The examined duodenum was normal. Impression: - Although the varices did not have any clear endoscopic stigmata of recent bleeding, the lack ofan alternative source prompts the diagnosis of recently bled esophageal varices. These were successfullybanded. - Portal hypertensive gastropathy. Recommendation: - Can discontinue octreotide infusion and start a non-selective beta sparkle (e.g. nadolol 20 mg qday) with dosage titrated by the heart rate. - Repeat upper endoscopy in 4 weeks for endoscopicband ligation. - Full liquid diet today, mechanical soft diettomorrow and then advanced as tolerated afterwards. - Further recommendations per inpatient GIservice. Attending Participation: I was present and participated during the entire procedure from insertion to removal of the endoscope. Phi Vasquez M.D. 02/24/2019 8:55:01 AM Number of Addenda: 0 Note Initiated On: 02/24/2019 7:46 AM Recognized by the [employer] for promoting quality in endoscopy us Phi Vasquez MD ENDOSCOPY PROCEDURES Fin al Result * Differential, auto (02/24/2019 4:35 AM CDT) Neutrophil abs 2.4 1.7 - 6.5 K/cumm [facility] Imm gran abs 0.0 0.0 - 0.1 K/cumm [facility] Lymphocyte abs 0.9 0.8 - 3.3 K/cumm [facility] Monocyte abs 0.3 0.2 - 0.8 K/cumm [facility] Eosinophil abs 0.2 0.0 - 0.5 K/cumm [facility] Basophil abs 0.0 0.0 - 0.1 K/cumm [facility] Neutrophil pct 62.7 % [facility] Comment: Interpretive Data Percent cell count reference ranges are not reported, since discordance with absolute values may lead to misinterpretation of CBC data. Current Interpretive Data was last revised on 2017. Imm gran pct 0.3 % [facility] Comment: Interpretive Data Percent cell count reference ranges are not reported, since discordance with absolute values may lead to misinterpretation of CBC data. Current Interpretive Data was last revised on 2017. Lymphocyte pct 22.6 % [facility] Comment: Interpretive Data Percent cell count reference ranges are not reported, since discordance with absolute values may lead to misinterpretation of CBC data. Current Interpretive Data was last revised on 2017. Monocyte pct 8.7 % [facility] Comment: Interpretive Data Percent cell count reference ranges are not reported, since discordance with absolute values may lead to misinterpretation of CBC data. Current Interpretive Data was last revised on 2017. Eosinophil pct 4.4 % [facility] Comment: Interpretive Data Percent cell count reference ranges are not reported, since discordance with absolute values may lead to misinterpretation of CBC data. Current Interpretive Data was last revised on 2017. Basophil pct 1.3 % [facility] Comment: Interpretive Data Percent cell count reference ranges are not reported, since discordance with absolute values may lead to misinterpretation of CBC data. Current Interpretive Data was last revised on 2017. Blood specimen (specimen) 02/24/2019 4:35 AM CDT 02/24/2019 6:08 AM CDT Carlos Rojo MD LAB BLOOD ORDERABLE S Final Result [address] [address] * (ABNORMAL) CBC with auto differential (02/24/2019 4:35 AM CDT) WBC 3.9 3.8 - 9.9 K/cumm [facility] Hgb 9.6(L) 13.0 - 17.5 g/dL [facility] Hct 29.1(L) 38.9 - 50.3 % [facility] Plt 78(L) 150 - 400 K/cumm [facility] MPV 11.4 9.1 - 12.3 fL [facility] RBC 2.90(L) 4.30 - 5.80 M/cumm [facility] MCV 100.3(H) 81.3 - 96.4 fL [facility] MCH 33.1 27.1 - 33.3 pg [facility] MCHC 33.0 32.3 - 35.7 g/dL [facility] RDW CV 14.0 11.1 - 14.9 % [facility] RDW SD 50.6(H) 35.7 - 48.1 fL [facility] NRBC abs 0.00 0.00 - 0.01 K/cumm [facility] Blood specimen (specimen) 02/24/2019 4:35 AM CDT 02/24/2019 6:08 AM CDT Carlos Rojo MD LAB BLOOD ORDERABLE S Final Result Performing Organization Address City/[facility] Co de Phone Number [address] [address] * Phosphorus (02/24/2019 4:35 AM CDT) Phosphorus, pl 2.9 2.3 - 4.5 mg/dL [facility] Blood specimen (specimen) 02/24/2019 4:35 AM CDT 02/24/2019 6:10 AM CDT Carlos Rojo MD LAB BLOOD ORDERABLE S Final Result Performing Organization Address City/[facility]/ZIP Co de Phone Number [facility] [address] [place] [address] * Magnesium (02/24/2019 4:35 AM CDT) Pathologist [facility] Magnesium 1.7 1.4 - 2.5 mg/dL [facility] Blood specimen (specimen) 02/24/2019 4:35 AM CDT 02/24/2019 6:10 AM CDT Carlos Rojo MD LAB BLOOD ORDERABLE S Final Result Performing Organization Address [facility] de Phone Number [facility] [address] [place] [address] * (ABNORMAL) Basic metabolic panel (02/24/2019 4:35 AM CDT) Pathologist [facility] Sodium 138 135 - 145 mmol/L [facility] Potassium, pl 3.3 3.3 - 4.9 mmol/L [facility] Chloride 105 97 - 110 mmol/L [facility] CO2 26 22 - 32 mmol/L [facility] Anion gap 7 2 - 15 mmol/L [facility] BUN 4(L) 8 - 25 mg/dL [facility] Creatinine 0.72(L) 0.80 - 1.30 mg/dL [facility] Glucose 127 70 - 199 mg/dL [facility] [...] interpretive data was last revised 2017. Calcium 8.3(L) 8.5 - 10.3 mg/dL [facility] Blood specimen (specimen) 02/24/2019 4:35 AM CDT 02/24/2019 6:10 AM CDT Carlos Rojo MD LAB BLOOD ORDERABLE S Final Result [facility] [address] [place] [address] * Differential, auto (02/23/2019 5:06 PM CDT) Neutrophil abs 2.5 1.7 - 6.5 K/cumm [facility] Imm gran abs 0.0 0.0 - 0.1 K/cumm [facility] Lymphocyte abs 0.8 0.8 - 3.3 K/cumm [facility] Monocyte abs 0.3 0.2 - 0.8 K/cumm [facility] Eosinophil abs 0.1 0.0 - 0.5 K/cumm [facility] Basophil abs 0.0 0.0 - 0.1 K/cumm [facility] Neutrophil pct 66.6 % [facility] Comment: Interpretive Data Percent cell count reference ranges are not reported, since discordance with absolute values may lead to misinterpretation of CBC data. Current Interpretive Data was last revised on 2017. Imm gran pct 0.3 % [facility] Comment: Interpretive Data Percent cell count reference ranges are not reported, since discordance with absolute values may lead to misinterpretation of CBC data. Current Interpretive Data was last revised on 2017. Lymphocyte pct 21.2 % [facility] Comment: Interpretive Data Percent cell count reference ranges are not reported, since discordance with absolute values may lead to misinterpretation of CBC data. Current Interpretive Data was last revised on 2017. Monocyte pct 7.9 % [facility] Comment: Interpretive Data Percent cell count reference ranges are not reported, since discordance with absolute values may lead to misinterpretation of CBC data. Current Interpretive Data was last revised on 2017. Eosinophil pct 3.2 % [facility] Comment: Interpretive Data Percent cell count reference ranges are not reported, since discordance with absolute values may lead to misinterpretation of CBC data. Current Interpretive Data was last revised on 2017. Basophil pct 0.8 % [facility] Comment: Interpretive Data Percent cell count reference ranges are not reported, since discordance with absolute values may lead to misinterpretation of CBC data. Current Interpretive Data was last revised on 2017. Blood specimen (specimen) 02/23/2019 5:06 PM CDT 02/23/2019 5:58 PM CDT Carlos Rojo MD LAB BLOOD ORDERABLE S Final Result Performing Organization Address City/[facility] Co de Phone Number [facility] [address] [place], [place] [id number] * (ABNORMAL) CBC with auto differential (02/23/2019 5:06 PM CDT) WBC 3.8 3.8 - 9.9 K/cumm [facility] Hgb 9.9(L) 13.0 - 17.5 g/dL [facility] Hct 29.9(L) 38.9 - 50.3 % [facility] Plt 80(L) 150 - 400 K/cumm [facility] MPV 11.0 9.1 - 12.3 fL [facility] RBC 2.96(L) 4.30 - 5.80 M/cumm [facility] MCV 101.0(H) 81.3 - 96.4 fL [facility] MCH 33.4(H) 27.1 - 33.3 pg [facility] MCHC 33.1 32.3 - 35.7 g/dL [facility] RDW CV 14.0 11.1 - 14.9 % [facility] RDW SD 51.5(H) 35.7 - 48.1 fL [facility] NRBC abs 0.00 0.00 - 0.01 K/cumm [facility] Blood specimen (specimen) 02/23/2019 5:06 PM CDT 02/23/2019 5:58 PM CDT Carlos Rojo MD LAB BLOOD ORDERABLE S Final Result [facility] [address] [place] [address] * Differential, auto (02/23/2019 5:18 AM CDT) Neutrophil abs 2.1 1.7 - 6.5 K/cumm [facility] Imm gran abs 0.0 0.0 - 0.1 K/cumm [facility] Lymphocyte abs 0.8 0.8 - 3.3 K/cumm [facility] Monocyte abs 0.3 0.2 - 0.8 K/cumm [facility] Eosinophil abs 0.1 0.0 - 0.5 K/cumm [facility] Basophil abs 0.0 0.0 - 0.1 K/cumm [facility] Neutrophil pct 60.2 % [facility] Comment: Interpretive Data Percent cell count reference ranges are not reported, since discordance with absolute values may lead to misinterpretation of CBC data. Current Interpretive Data was last revised on 2017. Imm gran pct 0.0 % [facility] Comment: Interpretive Data Percent cell count reference ranges are not reported, since discordance with absolute values may lead to misinterpretation of CBC data. Current Interpretive Data was last revised on 2017. Lymphocyte pct 24.6 % [facility] Comment: Interpretive Data Percent cell count reference ranges are not reported, since discordance with absolute values may lead to misinterpretation of CBC data. Current Interpretive Data was last revised on 2017. Monocyte pct 9.9 % [facility] Comment: Interpretive Data Percent cell count reference ranges are not reported, since discordance with absolute values may lead to misinterpretation of CBC data. Current Interpretive Data was last revised on 2017. Eosinophil pct 4.1 % [facility] Comment: Interpretive Data Percent cell count reference ranges are not reported, since discordance with absolute values may lead to misinterpretation of CBC data. Current Interpretive Data was last revised on 2017. Basophil pct 1.2 % [facility] Comment: Interpretive Data Percent cell count reference ranges are not reported, since discordance with absolute values may lead to misinterpretation of CBC data. Current Interpretive Data was last revised on 2017. Blood specimen (specimen) 02/23/2019 5:18 AM CDT 02/23/2019 5:50 AM CDT Carlos Rojo MD LAB BLOOD ORDERABLE S Final Result Performing Organization Address [facility] Co de Phone Number [facility] [address] [address] * (ABNORMAL) CBC with auto differential (02/23/2019 5:18 AM CDT) Pathologist [facility] WBC 3.4(L) 3.8 - 9.9 K/cumm [facility] Hgb 9.8(L) 13.0 - 17.5 g/dL [facility] Hct 29.9(L) 38.9 - 50.3 % [facility] Plt 80(L) 150 - 400 K/cumm [facility] MPV 10.7 9.1 - 12.3 fL [facility] RBC 2.96(L) 4.30 - 5.80 M/cumm [facility] MCV 101.0(H) 81.3 - 96.4 fL [facility] MCH 33.1 27.1 - 33.3 pg [facility] MCHC 32.8 32.3 - 35.7 g/dL [facility] RDW CV 14.0 11.1 - 14.9 % [facility] RDW SD 51.8(H) 35.7 - 48.1 fL [facility] NRBC abs 0.00 0.00 - 0.01 K/cumm [facility] Blood specimen (specimen) 02/23/2019 5:18 AM CDT 02/23/2019 5:50 AM CDT Carlos Rojo MD LAB BLOOD ORDERABLE S Final Result Performing Organization Address [facility]/ZIP Co de Phone Number [facility] [address] [address] * Phosphorus (02/23/2019 5:18 AM CDT) Pathologist [facility] Phosphorus, pl 3.7 2.3 - 4.5 mg/dL [facility] Blood specimen (specimen) 02/23/2019 5:18 AM CDT 02/23/2019 5:49 AM CDT Carlos Rojo MD LAB BLOOD ORDERABLE S Final Result Performing Organization Address [facility] Co de Phone Number [address] [address] * Magnesium (02/23/2019 5:18 AM CDT) [facility] Magnesium 1.8 1.4 - 2.5 mg/dL [facility] Blood specimen (specimen) 02/23/2019 5:18 AM CDT 02/23/2019 5:49 AM CDT Carlos Rojo MD LAB BLOOD ORDERABLE S Final Result Performing Organization Address [facility] de Phone Number [address] [address] * (ABNORMAL) Basic metabolic panel (02/23/2019 5:18 AM CDT) [facility] Sodium 140 135 - 145 mmol/L [facility] Potassium, pl 3.7 3.3 - 4.9 mmol/L [facility] Chloride 105 97 - 110 mmol/L [facility] CO2 29 22 - 32 mmol/L [facility] Anion gap 6 2 - 15 mmol/L [facility] BUN 8 8 - 25 mg/dL [facility] Creatinine 0.79(L) 0.80 - 1.30 mg/dL [facility] Glucose 112 70 - 199 mg/dL [facility] [...] interpretive data was last revised 2017. Calcium 8.5 8.5 - 10.3 mg/dL [facility] Blood specimen (specimen) 02/23/2019 5:18 AM CDT 02/23/2019 5:49 AM CDT us Carlos Rojo MD LAB BLOOD ORDERABLE S Final Result [facility] [address] [place] [address] * Differential, auto (02/22/2019 5:30 PM CDT) Neutrophil abs 1.7 1.7 - 6.5 K/cumm [facility] Imm gran abs 0.0 0.0 - 0.1 K/cumm [facility] Lymphocyte abs 0.9 0.8 - 3.3 K/cumm [facility] Monocyte abs 0.4 0.2 - 0.8 K/cumm [facility] Eosinophil abs 0.1 0.0 - 0.5 K/cumm [facility] Basophil abs 0.0 0.0 - 0.1 K/cumm [facility] Neutrophil pct 55.2 % [facility] Comment: Interpretive Data Percent cell count reference ranges are not reported, since discordance with absolute values may lead to misinterpretation of CBC data. Current Interpretive Data was last revised on 2017. Imm gran pct 0.3 % [facility] Comment: Interpretive Data Percent cell count reference ranges are not reported, since discordance with absolute values may lead to misinterpretation of CBC data. Current Interpretive Data was last revised on 2017. Lymphocyte pct 27.5 % [facility] Comment: Interpretive Data Percent cell count reference ranges are not reported, since discordance with absolute values may lead to misinterpretation of CBC data. Current Interpretive Data was last revised on 2017. Monocyte pct 11.5 % [facility] Comment: Interpretive Data Percent cell count reference ranges are not reported, since discordance with absolute values may lead to misinterpretation of CBC data. Current Interpretive Data was last revised on 2017. Eosinophil pct 4.5 % [facility] Comment: Interpretive Data Percent cell count reference ranges are not reported, since discordance with absolute values may lead to misinterpretation of CBC data. Current Interpretive Data was last revised on 2017. Basophil pct 1.0 % [facility] Comment: Interpretive Data Percent cell count reference ranges are not reported, since discordance with absolute values may lead to misinterpretation of CBC data. Current Interpretive Data was last revised on 2017. Blood specimen (specimen) 02/22/2019 5:30 PM CDT 02/22/2019 5:43 PM CDT Carlos Rojo MD LAB BLOOD ORDERABLE S Final Result [facility] [address] [place] [address] * (ABNORMAL) CBC with auto differential (02/22/2019 5:30 PM CDT) WBC 3.1(L) 3.8 - 9.9 K/cumm [facility] Hgb 9.4(L) 13.0 - 17.5 g/dL [facility] Hct 28.5(L) 38.9 - 50.3 % [facility] Plt 52(L) 150 - 400 K/cumm [facility] MPV 11.6 9.1 - 12.3 fL [facility] RBC 2.84(L) 4.30 - 5.80 M/cumm [facility] MCV 100.4(H) 81.3 - 96.4 fL [facility] MCH 33.1 27.1 - 33.3 pg [facility] MCHC 33.0 32.3 - 35.7 g/dL [facility] RDW CV 14.2 11.1 - 14.9 % [facility] RDW SD 52.3(H) 35.7 - 48.1 fL [facility] NRBC abs 0.00 0.00 - 0.01 K/cumm [facility] Blood specimen (specimen) 02/22/2019 5:30 PM CDT 02/22/2019 5:43 PM CDT Carlos Rojo MD LAB BLOOD ORDERABLE S Final Result Performing Organization Address [facility] de Phone Number [facility] [address] [place] [address] * Blood culture Blood (02/22/2019 12:42 PM CDT) Report Final Report: No growth [facility] Blood specimen (specimen) 02/22/2019 12:42 PM CDT 02/22/2019 1:00 PM CDT Narrative [facility] - 02/27/2019 4:00 PM CDT 1. Blood cultures are incubated for 5 days on a continuously monitored blood culture system. The first report of a negative culture is issued within 24 hours of receipt of the specimen in the laboratory. 2. Positive culture results are reported as soon as they are detected. 3. The most important factor for detection of microbes in the setting of bloodstream infection is the volume of blood submitted for culture. Failure to collect an optimal blood volume can result in false negative blood cultures. For pediatric patients, the recommended blood volume to collect is 1 mL of blood per year of patient age (up to 20 mL) per blood culture set. For adult patients, 20 mL of blood, divided equally between aerobic and anaerobic blood culture bottles, is recommended for each blood culture set. 4. For blood cultures with Gram-positive cocci, a rapid molecular test for organism identification may be performed using the [employer] Gram-Positive Blood Culture Assay. This assay detects microbial DNA in positive blood culture broth via hybridization of target DNA to capture oligonucleotides on a microarray. This assay has been cleared by the [place] Food and Drug Administration and its performance characteristics have been verified by the [facility]. 5. For questions about this culture, contact the Microbiology Laboratory at [phone]. Interpretive data was last revised on 2018. Carlos Rojo MD LAB MICROBIOLOGY - GENERAL ORDERABLES Final Result Performing Organization Address City/[facility] Co de Phone Number [place] [address] * Blood culture Blood (02/22/2019 12:42 PM CDT) Report Final Report: No growth [facility]ENNY RUIZ Blood specimen (specimen) 02/22/2019 12:42 PM CDT 02/22/2019 1:00 PM CDT Narrative [facility]NY CANDELARIA - 02/27/2019 4:00 PM CDT 1. Blood cultures are incubated for 5 days on a continuously monitored blood culture system. The first report of a negative culture is issued within 24 hours of receipt of the specimen in the laboratory. 2. Positive culture results are reported as soon as they are detected. 3. The most important factor for detection of microbes in the setting of bloodstream infection is the volume of blood submitted for culture. Failure to collect an optimal blood volume can result in false negative blood cultures. For pediatric patients, the recommended blood volume to collect is 1 mL of blood per year of patient age (up to 20 mL) per blood culture set. For adult patients, 20 mL of blood, divided equally between aerobic and anaerobic blood culture bottles, is recommended for each blood culture set. 4. For blood cultures with Gram-positive cocci, a rapid molecular test for organism identification may be performed using the [employer] Gram-Positive Blood Culture Assay. This assay detects microbial DNA in positive blood culture broth via hybridization of target DNA to capture oligonucleotides on a microarray. This assay has been cleared by the [place] Food and Drug Administration and its performance characteristics have been verified by the [facility]biology [facility]. 5. For questions about this culture, contact the Microbiology Laboratory at [phone]. Interpretive data was last revised on 2018. Carlos Rojo MD LAB MICROBIOLOGY - GENERAL ORDERABLES Final Result Performing Organization Address [facility] Co de Phone Number [place] [address] * Hepatitis B surface antibody (immune status) (02/22/2019 12:42 PM CDT) HBsAb (immune status) Nonreactive [facility] R[facility]ZH Comment: Interpretive Data A Negative Result indicates HBsAb of less than 10mIU/mL; a Positive Result indicates HBsAb of greater than or equal to 10mIU/mL. If qualitative result is Positive, HBsAb Quantitation will be reported. Assay performance characteristics have not been established as an aid in determining susceptibility to HBV infection prior to or following vaccination in infants, or children. For monitoring serum HBsAb levels during hepatitis B immunoglobulin (HBIG) therapy in transplant recipients, please refer to institutional HBIG protocol for desirable HBsAb levels. Current interpretive data was last revised on 2016. Blood specimen (specimen) 02/22/2019 12:42 PM CDT 02/22/2019 12:55 PM CDT Carlos Rojo MD LAB MICROBI [facility] - GENERAL ORDERABLES Edited Result - Final [facility] [address] [place] [address] * TRANSTHORACIC ECHO (TTE) COMPLETE W DOPPLER/CF WO CONTRAST (02/22/2019 11:57 AM CDT) Anatomical Region Laterality Modality Ultrasound 02/22/2019 11:1 5 AM CDT Narrative 02/22/2019 12:10 PM CDT Patient name: Chester Dubose Date of test: 02/22/2019 Type of test: TTE w/Doppler [facility] #: [id number] Date of : 1970 (M) Research Associate: Beatriz Plata RDCS Referring Physician: CARLOS ROJO MD Contrast Agent: Contrast Administered by: Supervised/Interpreted by: Montrell Michel MD Diagnosis: Dyspnea Pre-Op Location: [facility] Reason for test: Pre TIPS MV Structure: Normal, ?MV Motion: Normal, ?? Mitral Annulus: Normal AV Structure: tricuspid and is Normal, ?? AV Motion: Normal Aotic root: Normal, ?TM: Normal, ?? PV: Normal Valvular Vegetations: none seen, ?Mass/Thrombi: none seen RA: Normal Measurements: ?M-Mode ?Normal ? Aotic Root: ? <3.8 ? LA: ? <4.0 ? RV: ? <2.8 ? LV(ED): ? <5.7 ? LV(ES): ? Variable ?2D Linear Normal ? Aotic Root: 3.3 cm ?<4.0 ? Ao Indexed: 1.6 cm/M2 <2.0 ? LA: ? <4.0 ? RV: ? 3.6 cm ?<4.2 ? LV(ED): ? 4.7 cm ?<5.9 ? LV(ES): ? 2.5 cm ?<4.0 ?2D Vol. ?? Normal ?Indexed ?? Indexed Normal RA: ? 29.0 ml ? 14.0 ml/M2 ?11-39 ? LA: ? 60.0 ml ? 28.9 ml/M2 ?16-34 ? RV: ? <12.7 ? LV(ED): ? 93.0 ml ?? 62-150 ?44.8 ml/M2 ?<75 ? LV(ES): ? 25.0 ml ?? 21-61 ? 12.0 ml/M2 ?<32 ?3D Vol. ? Indexed Normal LV(ED): ? 78.6 mL/m2 ?? <75 ? LV(ES): ? 38.1 mL/m2 ?? <32 ? LV EF: 73 % ?? (Normal: >=52%) ?? LV Septum: 1.0 cm ?(Normal: <1.0 cm) Wall Motion Scoring (1=Normal 2=Hypo 3=Akinetic 4=Dyskin./Aneurysm 0=Not visualized) Parasternal Long [place]:MAS=1 BAS=1 MP=1 BP=1 Parasternal Short [place]:MAS=1 MS=1 OR=1 MP=1 ML=1 MA=1 Apical 4 Chambers:=1 MS=1 BS=1 BL=1 OR=1 AL=1 Apical 2 Chambers:AI=1 OR=1 BI=1 BA=1 MA=1 AA=1 LV Global Longitudinal Strain: -19.9% ??(Normal <-19%) RV Global Longitudinal Strain: LV Function: Normal LV Ejection Fraction, (EF=52-72%) RV Function: Normal Septal Motion: Normal Pericardial Effusion: none seen Atrial Septum: Normal DOPPLER/COLOR FOLOW DOPPLER RESULTS: Diastolic Function: Inconsistent Tricuspid Valve: normal TV Pulmonic Valve: normal PV AV Regurgitation: No AR seen AV Stenosis: no AV Area: ??cm2 AV Pressure Gradient (mmHg): Mean: 0, Peak:0 MV Regurgitation: No MR seen MV Stenosis: no MS MV Area: ??cm2 MV Pressure Gradient (mmHg): Mean: 0 MV ERO: ??cm Regurg. Vol.: ??ml/beat Regurg. Frac.: ??% PA Pressure: 30 mmHg DOPPLER/COLOR FOLOW DOPPLER COMMENTS: No AR seen, No MR seen, no , no MS, normal TV, normal PV. Diastolic function: Inconsistent SUMMARY: LV cavity size is normal. Normal LV wall thickness/mass. LVEF = 73%. LA is normal. Normal RV cavity size and function. ??Normal Inferior vena cava. Normal aorta. ??No AR seen, No MR seen, no , no MS, normal TV, normal PV. Diastolic function: Inconsistent. ??No previous examinations are available for comparison. Confirmed on ??02/22/2019 - 12:10:17 by Montrell Michel MD By signing this report, the attending component lab tech certifies that he or she has personally supervised and interpreted the echocardiogram and has reviewed and or edited and agrees with the written comments contained within the report. Procedure Note Montrell Michel III, MD - 02/22/2019 Patient name: Chester Dubose Date of test: 02/22/2019 Type of test: TTE /[facility] #: [id number] Date of : 1970 (M) Research Associate: Beatriz Plata RDCS Referring Physician: CARLOS ROJO MD Contrast Agent: Contrast Administered by: Supervised/Interpreted by: Montrell Michel MD Diagnosis: Dyspnea Pre-Op Location: [facility] Reason for test: Pre TIPS MV Structure: Normal, MV Motion: Normal, Mitral Annulus: Normal AV Structure: tricuspid and is Normal, AV Motion: Normal Aotic root: Normal, TM: Normal, PV: Normal Valvular Vegetations: none seen, Mass/Thrombi: none seen RA: Normal Measurements: M-Mode Normal Aotic Root: <3.8 LA: <4.0 RV: <2.8 LV(ED): <5.7 LV(ES): Variable 2D Linear Normal Aotic Root: 3.3 cm <4.0 Ao Indexed: 1.6 cm/M2 <2.0 LA: <4.0 RV: 3.6 cm <4.2 LV(ED): 4.7 cm <5.9 LV(ES): 2.5 cm <4.0 2D Vol. Normal Indexed Indexed Normal RA: 29.0 ml 14.0 ml/M2 11-39 LA: 60.0 ml 28.9 ml/M2 16-34 RV: <12.7 LV(ED): 93.0 ml 62-150 44.8 ml/M2 <75 LV(ES): 25.0 ml 21-61 12.0 ml/M2 <32 3D Vol. Indexed Normal LV(ED): 78.6 mL/m2 <75 LV(ES): 38.1 mL/m2 <32 LV EF: 73 % (Normal: >=52%) LV Septum: 1.0 cm (Normal: <1.0 cm) Wall Motion Scoring (1=Normal 2=Hypo 3=Akinetic 4=Dyskin./Aneurysm 0=Not visualized) Parasternal Long [place]:MAS=1 BAS=1 MP=1 BP=1 Parasternal Short [place]:MAS=1 MS=1 OR=1 MP=1 ML=1 MA=1 Apical 4 Chambers:=1 MS=1 BS=1 BL=1 OR=1 AL=1 Apical 2 Chambers:AI=1 OR=1 BI=1 BA=1 MA=1 AA=1 LV Global Longitudinal Strain: -19.9% (Normal <-19%) RV Global Longitudinal Strain: LV Function: Normal LV Ejection Fraction, (EF=52-72%) RV Function: Normal Septal Motion: Normal Pericardial Effusion: none seen Atrial Septum: Normal DOPPLER/COLOR FOLOW DOPPLER RESULTS: Diastolic Function: Inconsistent Tricuspid Valve: normal TV Pulmonic Valve: normal PV AV Regurgitation: No AR seen AV Stenosis: no AV Area: cm2 AV Pressure Gradient (mmHg): Mean: 0, Peak:0 MV Regurgitation: No MR seen MV Stenosis: no MS MV Area: cm2 MV Pressure Gradient (mmHg): Mean: 0 MV ERO: cm Regurg. Vol.: ml/beat Regurg. Frac.: % PA Pressure: 30 mmHg DOPPLER/COLOR FOLOW DOPPLER COMMENTS: No AR seen, No MR seen, no , no MS, normal TV, normal PV. Diastolic function: Inconsistent SUMMARY: LV cavity size is normal. Normal LV wall thickness/mass. LVEF = 73%. LA is normal. Normal RV cavity size and function. Normal Inferior vena cava. Normal aorta. No AR seen, No MR seen, no , no MS, normal TV, normal PV. Diastolic function: Inconsistent. No previous examinations are available for comparison. Confirmed on 02/22/2019 - 12:10:17 by Montrell Michel MD By signing this report, the attending component lab tech certifies that he or she has personally supervised and interpreted the echocardiogram and has reviewed and or edited and agrees with the written comments contained within the report. Carlos Rojo MD CV ECHO PROCEDURES Final Result * Differential, auto (02/22/2019 6:46 AM CDT) Neutrophil abs 1.8 1.7 - 6.5 K/cumm [facility] Imm gran abs 0.0 0.0 - 0.1 K/cumm [facility] Lymphocyte abs 0.8 0.8 - 3.3 K/cumm [facility] Monocyte abs 0.4 0.2 - 0.8 K/cumm [facility] Eosinophil abs 0.1 0.0 - 0.5 K/cumm [facility] Basophil abs 0.0 0.0 - 0.1 K/cumm [facility] Neutrophil pct 57.7 % [facility] Comment: Interpretive Data Percent cell count reference ranges are not reported, since discordance with absolute values may lead to misinterpretation of CBC data. Current Interpretive Data was last revised on 2017. Imm gran pct 0.0 % [facility] Comment: Interpretive Data Percent cell count reference ranges are not reported, since discordance with absolute values may lead to misinterpretation of CBC data. Current Interpretive Data was last revised on 2017. Lymphocyte pct 24.6 % [facility] Comment: Interpretive Data Percent cell count reference ranges are not reported, since discordance with absolute values may lead to misinterpretation of CBC data. Current Interpretive Data was last revised on 2017. Monocyte pct 12.1 % [facility] Comment: Interpretive Data Percent cell count reference ranges are not reported, since discordance with absolute values may lead to misinterpretation of CBC data. Current Interpretive Data was last revised on 2017. Eosinophil pct 4.4 % [facility] Comment: Interpretive Data Percent cell count reference ranges are not reported, since discordance with absolute values may lead to misinterpretation of CBC data. Current Interpretive Data was last revised on 2017. Basophil pct 1.2 % [facility] Comment: Interpretive Data Percent cell count reference ranges are not reported, since discordance with absolute values may lead to misinterpretation of CBC data. Current Interpretive Data was last revised on 2017. Blood specimen (specimen) 02/22/2019 6:46 AM CDT 02/22/2019 6:54 AM CDT us Carlos Rojo MD LAB BLOOD ORDERABLE S Final Result [facility] [address] [place] [address] * (ABNORMAL) CBC with auto differential (02/22/2019 6:46 AM CDT) WBC 3.2(L) 3.8 - 9.9 K/cumm [facility] Hgb 9.1(L) 13.0 - 17.5 g/dL [facility] Hct 27.4(L) 38.9 - 50.3 % [facility] Plt 67(L) 150 - 400 K/cumm [facility] MPV 12.0 9.1 - 12.3 fL [facility] RBC 2.71(L) 4.30 - 5.80 M/cumm [facility] MCV 101.1(H) 81.3 - 96.4 fL [facility] MCH 33.6(H) 27.1 - 33.3 pg [facility] MCHC 33.2 32.3 - 35.7 g/dL [facility] RDW CV 14.6 11.1 - 14.9 % [facility] RDW SD 53.2(H) 35.7 - 48.1 fL [facility] NRBC abs 0.00 0.00 - 0.01 K/cumm [facility] Blood specimen (specimen) 02/22/2019 6:46 AM CDT 02/22/2019 6:54 AM CDT us Carlos Rojo MD LAB BLOOD ORDERABLE S Final Result [facility] [address] [place] [address] * (ABNORMAL) Basic metabolic panel (02/21/2019 11:12 PM CDT) Sodium 140 135 - 145 mmol/L [facility] Potassium, pl 3.9 3.3 - 4.9 mmol/L [facility] Comment:Hemolyzed; (++); pot assium value may be falsely elevated by as much as 0.3 - 0.5 mmol/L. Suggest redraw and reanalysis. Chloride 104 97 - 110 mmol/L [facility] CO2 26 22 - 32 mmol/L [facility] Anion gap 10 2 - 15 mmol/L [facility] BUN 13 8 - 25 mg/dL [facility] Creatinine 0.70(L) 0.80 - 1.30 mg/dL [facility] Glucose 115 70 - 199 mg/dL [facility] [...] interpretive data was last revised 2017. Calcium 8.3(L) 8.5 - 10.3 mg/dL [facility] Blood specimen (specimen) 02/21/2019 11:12 PM CDT 02/21/2019 11:34 PM CDT us Carlos Rojo MD LAB BLOOD ORDERABLE S Final Result [facility] [address] [place] [address] * (ABNORMAL) CBC without differential (02/21/2019 11:12 PM CDT) WBC 3.4(L) 3.8 - 9.9 K/cumm [facility] Hgb 9.3(L) 13.0 - 17.5 g/dL [facility] Hct 28.4(L) 38.9 - 50.3 % [facility] Plt 70(L) 150 - 400 K/cumm [facility] MPV 10.9 9.1 - 12.3 fL [facility] RBC 2.77(L) 4.30 - 5.80 M/cumm [facility] MCV 102.5(H) 81.3 - 96.4 fL [facility] MCH 33.6(H) 27.1 - 33.3 pg [facility] MCHC 32.7 32.3 - 35.7 g/dL [facility] RDW CV 14.7 11.1 - 14.9 % [facility] RDW SD 55.3(H) 35.7 - 48.1 fL [facility] NRBC abs 0.00 0.00 - 0.01 K/cumm [facility] Blood specimen (specimen) 02/21/2019 11:12 PM CDT 02/21/2019 11:37 PM CDT Carlos Rojo MD LAB BLOOD ORDERABLE S Final Result Performing Organization Address [facility] Co de Phone Number [address] [address] * (ABNORMAL) CBC without differential (02/21/2019 5:51 PM CDT) WBC 4.1 3.8 - 9.9 K/cumm [facility] Hgb 9.7(L) 13.0 - 17.5 g/dL [facility] Hct 30.2(L) 38.9 - 50.3 % [facility] Plt 64(L) 150 - 400 K/cumm [facility] MPV 10.1 9.1 - 12.3 fL [facility] RBC 2.99(L) 4.30 - 5.80 M/cumm [facility] MCV 101.0(H) 81.3 - 96.4 fL [facility] MCH 32.4 27.1 - 33.3 pg [facility] MCHC 32.1(L) 32.3 - 35.7 g/dL [facility] RDW CV 15.0(H) 11.1 - 14.9 % [facility] RDW SD 55.7(H) 35.7 - 48.1 fL [facility] NRBC abs 0.00 0.00 - 0.01 K/cumm [facility] Blood specimen (specimen) 02/21/2019 5:51 PM CDT 02/21/2019 6:08 PM CDT Carlos Rojo MD LAB BLOOD ORDERABLE S Final Result Performing Organization Address [facility]/ZIP Co de Phone Number [facility] [address] [place] [address] * ECG 12 lead (02/21/2019 3:34 PM CDT) Ventricular Rate EKG/Min 103 BPM [facility] Atrial Rate 103 BPM [facility] MT-Interval (MSEC) 146 ms [facility] QRS-Interval (MSEC) 78 ms [facility] QT-Interval (MSEC) 394 ms [facility] QTc 516 ms [facility] P [place] 20 degrees [facility] R [place] 17 degrees [facility] T [place] 31 degrees [facility] Diagnosis Sinus tachycardia Possible Left atrial enlargement Borderline ECG When compared with ECG of 21-FEB-2019 05:51, (unconfirmed) Premature ventricular complexes are no longer Present Confirmed by LEA MATHIS M.D ([id number]) on 02/24/2019 11:15:16 AM [facility] 02/21/2019 3:34 PM CDT 02/24/2019 11:15 AM CDT us Carlos Rojo MD ECG ORDERABLES Fin al Result Performing Organization Address City/[facility] Co de Phone Number [facility] * Opiates Confirmation, Urine (02/21/2019 2:58 PM CDT) Pathologist [facility] Codeine Conf, Ur Does Not Confirm CutOff 50 ng/mL [facility] 6- Acetylmorphine Conf, Ur Does Not Confirm CutOff 10 ng/mL [facility] Oxycodone Conf, Ur Does Not Confirm CutOff 50 ng/mL [facility] Hydrocodone Conf, Ur Does Not Confirm CutOff 50 ng/mL [facility] Morphine Conf, Ur Confirmed Positive CutOff 50 ng/mL [facility] Hydromorphone Conf, Ur Does Not Confirm CutOff 50 ng/mL [facility] Oxymorphone Conf, Ur Does Not Confirm CutOff 50 ng/mL [facility] Urine 02/21/2019 2:58 PM CDT 02/21/2019 4:26 PM CDT Carlos Rojo MD LAB URINE ORDERABLE S Final Result Performing Organization Address City/[facility] Co de Phone Number [facility] [address] [place] [address] * (ABNORMAL) Drugs of Abuse Screen, Urine with Reflex Confirmation (02/21/2019 2:58 PM CDT) [facility] Amphetamine, ur Not Detected CutOff 500ng/mL [facility] Comment: Interpretive Data - Amphetamines: ??Samples containing greater than 500 ng/mL d-methamphetamine ??or other cross-reacting amphetamine compounds are reported as positive. ??Amphetamine immunoassays are subject to significant false positive rates due to cross-reactivity of non-amphetamine drugs. Current Interpretive Data was last reviewed 2018. Barbiturates, ur Not Detected CutOff 200ng/mL [facility] Comment: Interpretive Data - Barbiturates: ??Samples containing greater than 200 ng/mL secobarbital or other cross-reacting barbiturate compounds are reported as positive. ??False positive and false negative results are possible. Current Interpretive Data was last reviewed 2018. Benzodiazepines, ur Not Detected CutOff 100ng/mL [facility] Comment: Interpretive Data - Benzodiazepines: ??Samples containing greater than 100 ng/mL nordiazepam or other cross-reacting compounds are reported as positive. ?? False positive and false negative results are possible. ?? Current Interpretive Data was last reviewed 2018. Cannabinoids, ur Detected(A) CutOff [facility] ng[facility] Comment: Interpretive Data - Cannabinoids: ??Samples containing greater than 50 ng/mL delta-9 THC -COOH or other cross-reacting compounds are reported as positive. ??False positive and false negative results are possible. ?? Current Interpretive Data was last reviewed 2018. Cocaine, ur Not Detected CutOff 150ng/mL [facility] Comment: Interpretive Data - Cocaine: ??Samples containing greater than 150 ng/mL benzoylecgonine or other cross-reacting compounds are reported as positive. False positive and false negative results are possible. Current Interpretive Data was last reviewed 2018. Fentanyl, Ur Not Detected Cutoff 1 ng/mL [facility] Comment: Interpretive Data - Fentanyls: ??Samples containing greater than 1 ng/mL fentanyl or other cross-reacting fentanyl compounds are reported as detected. ??False positive and false negative results are possible. Current Interpretive Data was last reviewed 2019. Methadone, ur Not Detected CutOff 300ng/mL [facility] Comment: Interpretive Data - Methadone: ??Samples containing greater than 300 ng/mL d,l-methadone or other cross-reacting compounds are reported as positive. ??False positive and false negative results are possible. Current Interpretive Data was last reviewed 2018. Opiates, ur Detected(A) CutOff 300ng/mL [facility] Comment: Interpretive Data - Opiates: ??Samples containing greater than 300 ng/mL morphine or other cross-reacting compounds are reported as positive. ??False positive and false negative results are possible. Current Interpretive Data was last reviewed 2018. Oxycodone, ur Not Detected CutOff 100ng/mL [facility] Comment: Interpretive Data - Oxycodone: ??Samples containing greater than 100 ng/mL oxycodone or other cross-reacting compounds are reported as positive. ??False positive and false negative results are possible. ?? Current Interpretive Data was last reviewed 2018. Phencyclidine, ur Not Detected CutOff 25 ng/mL [facility] Comment: Interpretive Data - Phencyclidine: ??Samples containing greater than 25 ng/mL phencyclidine or other cross-reacting compounds are reported as positive. ??False positive and false negative results are possible. ?? Current Interpretive Data was last reviewed 2018. Urine Creatinine 94 mg/dL [facility] Comment: Interpretive Data Urine Creatinine: < 10 mg/dL is extremely dilute = or > 10 but < 20 mg/dL is dilute = or > 20 mg/dL is normal Current Interpretive Data was last revised on 2017. Urine 02/21/2019 2:58 PM CDT 02/21/2019 2:58 PM CDT Narrative [facility] - 02/21/2019 5:21 PM CDT Drug of Abuse screening is performed by immunoassay for medical purposes only. ??This is not to be used for Pain Management purposes. ??If Detected, confirmation testing will be performed for Amphetamines, Cocaine, Methadone, Opiates, Oxycodone or Phencyclidine. Carlos Rojo MD LAB URINE ORDERABLE S Final Result [facility] [address] [place] [address] * (ABNORMAL) Urinalysis, microscopic only (02/21/2019 2:58 PM CDT) WBC, ur 6-10(A) 0 - 5 /HPF [facility] RBC, ur 0-2 0 - 2 /HPF [facility] Epithelial cells, squamous, ur 1-5 0 - 5 /HPF [facility] Epithelial cells, renal, ur 1-5(A) 0 - 0 /HPF [facility] Bacteria, ur Trace(A) [facility] Mucous, ur Present(A) [facility] Urine 02/21/2019 2:58 PM CDT 02/21/2019 3:13 PM CDT Carlos Rojo MD LAB URINE ORDERABLE S Final Result Performing Organization Address [facility] de Phone Number [facility] [address] [place] [address] * (ABNORMAL) Urinalysis reflex to microscopic and culture Urine (02/21/2019 2:58 PM CDT) Color, ur Yellow Yellow [facility] Clarity, ur Cloudy(A) Clear [facility] Specific gravity, ur 1.020 1.010 - 1.025 [facility] pH, urine 6 [facility] Protein, ur ql Negative Negative [facility] Glucose, ur ql Negative Negative [facility] Ketones, ur Trace Negative [facility] Bilirubin, ur Negative Negative [facility] Blood, ur Negative Negative [facility] Urobilinogen, ur <2.0 <2.0 mg/dL [facility] Nitrite, ur Negative Negative [facility] Leukocyte esterase, ur 1+(A) Negative [facility] Urine 02/21/2019 2:58 PM CDT 02/21/2019 3:13 PM CDT Narrative [facility] - 02/21/2019 3:32 PM CDT ?? Urine pH is affected by diet, medications, systemic acid-base disturbances, and renal tubular function. ??pH may affect urinary stone formation. ??For example, urine pH below 6.0 may help reduce the tendency for calcium phosphate stones and pH greater than 6.0 may reduce the tendency for uric acid stone formation. Source: [employer]. Last revised 06-28-2017 Urine pH is affected by diet, medications, systemic acid-base disturbances, and renal tubular function. ??pH may affect urinary stone formation. ??For example, urine pH below 6.0 may help reduce the tendency for calcium phosphate stones and pH greater than 6.0 may reduce the tendency for uric acid stone formation. Source: [employer]. Last revised 06-28-2017 Carlos Rojo MD LAB MICROBIOLOGY - GENERAL ORDERABLES Final Result Performing Organization Address [facility]/State/[facility] Co de Phone Number [facility] [address] [place] [address] * (ABNORMAL) Protime-INR (02/21/2019 12:55 PM CDT) Pathologist [facility] PT 17.0(H) 8.6 - 13.[address] [facility] INR 1.56(H) 0.80 - 1.20 [facility] Comment: Interpretive Data Inpatient therapeutic ranges* Atrial fibrillation ?2.0-3.0 INR Venous thrombo-embolism ?2.0-3.0 INR Bioprosthetic heart valve ?* Mechanical heart valve, bileaflet or tilting disk,aortic position ? 2.0-3.0 INR All other,or bileaflet or tilting disk, in mitral position ? 2.5-3.5 INR *See the pharmacy resource directory (PHRED) for an updated copy of the Tool Book at [email or web address] Current Interpretive Data was last revised 2011. Blood specimen (specimen) 02/21/2019 12:55 PM CDT 02/21/2019 1:03 PM CDT Carlos Rojo MD LAB BLOOD ORDERABLE S Final Result Performing Organization Address [facility] Co de Phone Number [facility] [address] [address] * (ABNORMAL) CBC without differential (02/21/2019 11:48 AM CDT) WBC 4.2 3.8 - 9.9 K/cumm [facility] Hgb 9.5(L) 13.0 - 17.5 g/dL [facility] Hct 29.1(L) 38.9 - 50.3 % [facility] Plt 78(L) 150 - 400 K/cumm [facility] MPV 11.1 9.1 - 12.3 fL [facility] RBC 2.88(L) 4.30 - 5.80 M/cumm [facility] MCV 101.0(H) 81.3 - 96.4 fL [facility] MCH 33.0 27.1 - 33.3 pg [facility] MCHC 32.6 32.3 - 35.7 g/dL [facility] RDW CV 15.1(H) 11.1 - 14.9 % [facility] RDW SD 56.9(H) 35.7 - 48.1 fL [facility] NRBC abs 0.00 0.00 - 0.01 K/cumm [facility] Blood specimen (specimen) 02/21/2019 11:48 AM CDT 02/21/2019 12:06 PM CDT Carlos Rojo MD LAB BLOOD ORDERABLE S Final Result Performing Organization Address [facility]/ZIP Co de Phone Number [facility] [address] [address] * X-ray chest 1 view (Portable) (02/21/2019 9:49 AM CDT) Anatomical Region Laterality Modality Body, Chest N/A Computed Radiogr aphy 02/21/2019 11:4 1 AM CDT Impressions 02/21/2019 12:27 PM CDT No prior radiograph is available for comparison. The lungs are clear, specifically there is no focal consolidation or pulmonary edema. ??There is no pneumothorax or pleural effusion. ??The cardiomediastinal silhouette is normal. Dictated by: Aneudy Smith The radiology attending physician has personally reviewed this study, and had reviewed and/or edited this written report and agrees with it. Electronically signed by: Kenyon Golden M.D. Narrative 02/21/2019 12:27 PM CDT EXAMINATION: 1 view chest radiograph Procedure Note Kenyno Golden MD - 02/21/2019 EXAMINATION: 1 view chest radiograph IMPRESSION: No prior radiograph is available for comparison. The lungs are clear, specifically there is no focal consolidation or pulmonary edema. There is no pneumothorax or pleural effusion. The cardiomediastinal silhouette is normal. Dictated by: Aneudy Smith The radiology attending physician has personally reviewed this study, and had reviewed and/or edited this written report and agrees with it. Electronically signed by: Kenyon Golden M.D. us Carlos Rojo MD IMG XR PROCEDURES F inal Result * (ABNORMAL) Ammonia (02/21/2019 9:41 AM CDT) Ammonia 115(H) 5 - 50 mcmol/L [facility] Comment:Hemolyzed; result ma y be falsely elevated. Blood specimen (specimen) 02/21/2019 9:41 AM CDT 02/21/2019 10:07 AM CDT us Carlos Rojo MD LAB BLOOD ORDERABLE S Final Result [facility] [address] [place] [address] * Lipase (02/21/2019 9:41 AM CDT) Lipase 37 10 - 99 Units/L [facility] Blood specimen (specimen) 02/21/2019 9:41 AM CDT 02/21/2019 10:07 AM CDT us Carlos Rojo MD LAB BLOOD ORDERABLE S Final Result Performing Organization Address [facility] de Phone Number [address] [address] * Check Sample (02/21/2019 9:41 AM CDT) ABO Rh O Positive [facility] HCLL OTHER 02/21/2019 9:41 AM CDT 02/21/2019 10:14 AM CDT us Carlos Rojo MD LAB BLOOD ORDERABLE S Final Result Performing Organization Address [facility] Phone Number [address] [address] * US Liver W Complete Doppler (C) (02/21/2019 8:43 AM CDT) Anatomical Region Laterality Modality Abdomen N/A Ultrasound 02/21/2019 10:2 7 AM CDT Impressions 02/21/2019 10:33 AM CDT 1. Diffuse hepatic steatosis and cirrhosis. 2. Retrograde portal flow without portal vein thrombosis. Dictated by: Emir Adan M.D. Ph.D. The radiology attending physician has personally reviewed this study, and had reviewed and/or edited this written report and agrees with it. Electronically signed by: Leilani Sykes M.D. Narrative 02/21/2019 10:33 AM CDT EXAMINATION: 1. LIVER SONOGRAM 2. LIVER DOPPLER HISTORY: ??48-year-old man with cirrhosis. COMPARISON: ??None FINDINGS: ?? LIMITED ABDOMEN: Liver: The liver is normal in size. ??The echotexture is coarse. ??The echogenicity is increased. There is surface nodularity. No focal solid lesions are visualized; however, the level of steatosis limits evaluation for focal lesions. ?? Gallbladder: The gallbladder is normal in size. There are no stones or sludge within the gallbladder. There is no gallbladder wall thickening. Bile Duct: There is no intrahepatic bile duct dilatation. The common duct measures 0.3 cm in the proximal segment. ?? Other Findings: There is no ascites. ??There is splenomegaly. LIVER DOPPLER: Color Doppler and spectral analysis were used to evaluate the hepatic vasculature. ?? Portal veins: The main portal vein as well as the right and left branches have hepatofugal (retrograde) flow. ??No thrombosis is visualized. ?? Hepatic veins: The middle and left hepatic veins are patent with anterograde flow. ??The right hepatic vein is not visualized. Portosplenic confluence: The portosplenic confluence is patent. IVC: The inferior vena cava at the level of the liver is patent with appropriate directional flow. ?? Hepatic artery: The visualized main hepatic artery is patent with antegrade flow. ?? Other: There is a recanalized umbilical vein. Procedure Note Leilani Sykes MD - 02/21/2019 EXAMINATION: 1. LIVER SONOGRAM 2. LIVER DOPPLER HISTORY: 48-year-old man with cirrhosis. COMPARISON: None FINDINGS: LIMITED ABDOMEN: Liver: The liver is normal in size. The echotexture is coarse. The echogenicity is increased. There is surface nodularity. No focal solid lesions are visualized; however, the level of steatosis limits evaluation for focal lesions. Gallbladder: The gallbladder is normal in size. There are no stones or sludge within the gallbladder. There is no gallbladder wall thickening. Bile Duct: There is no intrahepatic bile duct dilatation. The common duct measures 0.3 cm in the proximal segment. Other Findings: There is no ascites. There is splenomegaly. LIVER DOPPLER: Color Doppler and spectral analysis were used to evaluate the hepatic vasculature. Portal veins: The main portal vein as well as the right and left branches have hepatofugal (retrograde) flow. No thrombosis is visualized. Hepatic veins: The middle and left hepatic veins are patent with anterograde flow. The right hepatic vein is not visualized. Portosplenic confluence: The portosplenic confluence is patent. IVC: The inferior vena cava at the level of the liver is patent with appropriate directional flow. Hepatic artery: The visualized main hepatic artery is patent with antegrade flow. Other: There is a recanalized umbilical vein. IMPRESSION: 1. Diffuse hepatic steatosis and cirrhosis. 2. Retrograde portal flow without portal vein thrombosis. Dictated by: Emir Adan M.D. Ph.D. The radiology attending physician has personally reviewed this study, and had reviewed and/or edited this written report and agrees with it. Electronically signed by: Leilani Sykes M.D. Carlos Rojo MD IMG US PROCEDURES F inal Result * Type and screen (02/21/2019 6:28 AM CDT) Xiang, indirect Negative [facility] ABO Rh O Positive [facility] Blood specimen (specimen) 02/21/2019 6:28 AM CDT 02/21/2019 6:41 AM CDT Narrative [facility] - 02/21/2019 7:49 AM CDT Has the patient had Daratumumab (Darzalex) in the past 6 months?->Unknown Carlos Rojo MD LAB BLOOD BANK TEST ORDERABLES Final Result [facility] [address] [place] [address] * Blood culture Blood (02/21/2019 6:28 AM CDT) Report Final Report: No growth [facility] Blood specimen (specimen) 02/21/2019 6:28 AM CDT 02/21/2019 6:51 AM CDT Narrative [facility] - 02/26/2019 7:01 AM CDT From a different site than #1. 1. Blood cultures are incubated for 5 days on a continuously monitored blood culture system. The first report of a negative culture is issued within 24 hours of receipt of the specimen in the laboratory. 2. Positive culture results are reported as soon as they are detected. 3. The most important factor for detection of microbes in the setting of bloodstream infection is the volume of blood submitted for culture. Failure to collect an optimal blood volume can result in false negative blood cultures. For pediatric patients, the recommended blood volume to collect is 1 mL of blood per year of patient age (up to 20 mL) per blood culture set. For adult patients, 20 mL of blood, divided equally between aerobic and anaerobic blood culture bottles, is recommended for each blood culture set. 4. For blood cultures with Gram-positive cocci, a rapid molecular test for organism identification may be performed using the [employer] Gram-Positive Blood Culture Assay. This assay detects microbial DNA in positive blood culture broth via hybridization of target DNA to capture oligonucleotides on a microarray. This assay has been cleared by the [place] Food and Drug Administration and its performance characteristics have been verified by the [facility]. 5. For questions about this culture, contact the Microbiology Laboratory at [phone]. Interpretive data was last revised on 2018. Carlos Rojo MD LAB MICROBIOLOGY - GENERAL ORDERABLES Final Result [facility] [address] [place] [address] * (ABNORMAL) Blood culture Blood (02/21/2019 6:28 AM CDT) [facility] Direct Specimen Exam Rapid Molecular Analysis: Staphylococcus species detected by the Verigene Blood Culture Nucleic Acid Test. This is most suggestive of a coagulase negative Staphylococcus species. Please refer to final culture-based result for confirmation. This test does not exclude the possibility of a mixed bacterial infection. Notification of: Staphylococcus species ??called to and read back by: DR. TREV RIUZ [phone] on 02/22/2019 07:11:40 by: JOSE MONTE MLS [facility] Direct Specimen Exam Stain: Gram Positive Cocci in clusters Notification of: Gram Positive Cocci in clusters called to and read back by: DR. MIRNA VALLADARES [phone] on 02/22/2019 03:01:37 by: JOSE MONTE MLS Time to culture positivity (anaerobic media): 17.6 hours [facility] Report Final Report: Coagulase negative Staphylococcus species Isolate of questionable significance. ??If a similar isolate is recovered from a second blood culture collected within 3 days of this culture, both will be evaluated and, if determined to be related, antimicrobial susceptibility testing will be performed. (.) [facility] Organism COAGULASE NEGATIVE STAPHYLOCOCCUS SPECIES [facility] Blood specimen (specimen) 02/21/2019 6:28 AM CDT 02/21/2019 6:51 AM CDT Eliud RUIZ - 02/27/2019 1:26 PM CDT 1. Blood cultures are incubated for 5 days on a continuously monitored blood culture system. The first report of a negative culture is issued within 24 hours of receipt of the specimen in the laboratory. 2. Positive culture results are reported as soon as they are detected. 3. The most important factor for detection of microbes in the setting of bloodstream infection is the volume of blood submitted for culture. Failure to collect an optimal blood volume can result in false negative blood cultures. For pediatric patients, the recommended blood volume to collect is 1 mL of blood per year of patient age (up to 20 mL) per blood culture set. For adult patients, 20 mL of blood, divided equally between aerobic and anaerobic blood culture bottles, is recommended for each blood culture set. 4. For blood cultures with Gram-positive cocci, a rapid molecular test for organism identification may be performed using the [employer] Gram-Positive Blood Culture Assay. This assay detects microbial DNA in positive blood culture broth via hybridization of target DNA to capture oligonucleotides on a microarray. This assay has been cleared by the [place] Food and Drug Administration and its performance characteristics have been verified by the [facility]. 5. For questions about this culture, contact the Microbiology Laboratory at [phone]. Interpretive data was last revised on 2018. Carlos Rojo MD LAB MICROBIOLOGY - GENERAL ORDERABLES Final Result [facility] [address] [place] [address] * Differential, auto (02/21/2019 6:04 AM CDT) Neutrophil abs 2.8 1.7 - 6.5 K/cumm [facility] Imm gran abs 0.0 0.0 - 0.1 K/cumm [facility] Lymphocyte abs 1.1 0.8 - 3.3 K/cumm [facility] Monocyte abs 0.7 0.2 - 0.8 K/cumm [facility] Eosinophil abs 0.0 0.0 - 0.5 K/cumm [facility] Basophil abs 0.0 0.0 - 0.1 K/cumm [facility] Neutrophil pct 59.2 % [facility] Comment: Interpretive Data Percent cell count reference ranges are not reported, since discordance with absolute values may lead to misinterpretation of CBC data. Current Interpretive Data was last revised on 2017. Imm gran pct 0.2 % [facility] Comment: Interpretive Data Percent cell count reference ranges are not reported, since discordance with absolute values may lead to misinterpretation of CBC data. Current Interpretive Data was last revised on 2017. Lymphocyte pct 23.3 % [facility] Comment: Interpretive Data Percent cell count reference ranges are not reported, since discordance with absolute values may lead to misinterpretation of CBC data. Current Interpretive Data was last revised on 2017. Monocyte pct 15.3 % [facility] Comment: Interpretive Data Percent cell count reference ranges are not reported, since discordance with absolute values may lead to misinterpretation of CBC data. Current Interpretive Data was last revised on 2017. Eosinophil pct 1.0 % [facility] Comment: Interpretive Data Percent cell count reference ranges are not reported, since discordance with absolute values may lead to misinterpretation of CBC data. Current Interpretive Data was last revised on 2017. Basophil pct 1.0 % [facility] Comment: Interpretive Data Percent cell count reference ranges are not reported, since discordance with absolute values may lead to misinterpretation of CBC data. Current Interpretive Data was last revised on 2017. Blood specimen (specimen) 02/21/2019 6:04 AM CDT 02/21/2019 6:20 AM CDT us Carlos Rojo MD LAB BLOOD ORDERABLE S Final Result [facility] [address] [place] [address] * (ABNORMAL) CBC with auto differential (02/21/2019 6:04 AM CDT) Pathologist [facility] WBC 4.8 3.8 - 9.9 K/cumm [facility] Hgb 10.1(L) 13.0 - 17.5 g/dL [facility] Hct 31.4(L) 38.9 - 50.3 % [facility] Plt 81(L) 150 - 400 K/cumm [facility] MPV 10.7 9.1 - 12.3 fL [facility] RBC 3.05(L) 4.30 - 5.80 M/cumm [facility] MCV 103.0(H) 81.3 - 96.4 fL [facility] MCH 33.1 27.1 - 33.3 pg [facility] MCHC 32.2(L) 32.3 - 35.7 g/dL [facility] RDW CV 15.4(H) 11.1 - 14.9 % [facility] RDW SD 58.4(H) 35.7 - 48.1 fL [facility] NRBC abs 0.00 0.00 - 0.01 K/cumm [facility] Blood specimen (specimen) 02/21/2019 6:04 AM CDT 02/21/2019 6:20 AM CDT Carlos Rojo MD LAB BLOOD ORDERABLE S Final Result Performing Organization Address City/State/[facility] Co de Phone Number [facility] [address] [place] [address] * (ABNORMAL) Protime-INR (02/21/2019 6:04 AM CDT) Pathologist [facility] PT 17.8(H) 8.6 - 13.0 sec [facility] INR 1.63(H) 0.80 - 1.20 [facility] Comment: Interpretive Data Inpatient therapeutic ranges* Atrial fibrillation ?2.0-3.0 INR Venous thrombo-embolism ?2.0-3.0 INR Bioprosthetic heart valve ?* Mechanical heart valve, bileaflet or tilting disk,aortic position ? 2.0-3.0 INR All other,or bileaflet or tilting disk, in mitral position ? 2.5-3.5 INR *See the pharmacy resource directory (PHRED) for an updated copy of the Tool Book at [email or web address] Current Interpretive Data was last revised 2011. Blood specimen (specimen) 02/21/2019 6:04 AM CDT 02/21/2019 6:11 AM CDT Carlos Rojo MD LAB BLOOD ORDERABLE S Final Result Performing Organization Address [facility] de Phone Number [address] [address] * Lactate (02/21/2019 6:04 AM CDT) Lactate 1.5 0.7 - 2.0 mmol/L [facility] Blood specimen (specimen) 02/21/2019 6:04 AM CDT 02/21/2019 6:19 AM CDT Carlos Rojo MD LAB BLOOD ORDERABLE S Final Result Performing Organization Address [facility] de Phone Number [address] [address] * Phosphorus (02/21/2019 6:04 AM CDT) Phosphorus, pl 3.2 2.3 - 4.5 mg/dL [facility] Blood specimen (specimen) 02/21/2019 6:04 AM CDT 02/21/2019 6:19 AM CDT Carlos Rojo MD LAB BLOOD ORDERABLE S Final Result Performing Organization Address City/[facility]/ZIP Co de Phone Number [facility] [address] [place] [address] * Magnesium (02/21/2019 6:04 AM CDT) Pathologist [facility] Magnesium 1.8 1.4 - 2.5 mg/dL [facility] Blood specimen (specimen) 02/21/2019 6:04 AM CDT 02/21/2019 6:19 AM CDT Carlos Rojo MD LAB BLOOD ORDERABLE S Final Result Performing Organization Address [facility] de Phone Number [facility] [address] [place] [address] * (ABNORMAL) Comprehensive metabolic panel (02/21/2019 6:04 AM CDT) [facility] Sodium 145 135 - 145 mmol/L [facility] Potassium, pl 4.9 3.3 - 4.9 mmol/L [facility] Comment:Hemolyzed; (++); pot assium value may be falsely elevated by as much as 0.3 - 0.5 mmol/L. Suggest redraw and reanalysis. Chloride 111(H) 97 - 110 mmol/L [facility] CO2 27 22 - 32 mmol/L [facility] Anion gap 7 2 - 15 mmol/L [facility] BUN 19 8 - 25 mg/dL [facility] Creatinine 0.70(L) 0.80 - 1.30 mg/dL [facility] Glucose 126 70 - 199 mg/dL [facility] [...] interpretive data was last revised 2017. Calcium 8.2(L) 8.5 - 10.3 mg/dL [facility] Bilirubin, total 2.4(H) 0.1 - 1.2 mg/dL [facility] Protein, pl 6.9 6.5 - 8.5 g/dL [facility] Albumin 3.0(L) 3.5 - 5.0 g/dL [facility] Alk phos 93 40 - 130 Units/L [facility] ALT 44 7 - 55 Units/L [facility] AST 159(H) 10 - 50 Units/L [facility] Comment:Hemolyzed; result ma y be falsely elevated. Blood specimen (specimen) 02/21/2019 6:04 AM CDT 02/21/2019 6:19 AM CDT Carlos Rojo MD LAB BLOOD ORDERABLE S Final Result Performing Organization Address [facility] Co de Phone Number [facility] [address] [place] [address] * MRSA culture Nasal (02/21/2019 6:04 AM CDT) Report Final Report: Negative [facility] Nasal 02/21/2019 6:04 AM CDT 02/21/2019 6:13 AM CDT Narrative [facility] - 02/22/2019 7:12 AM CDT Testing performed by [facility] ([phone]). Carlos Rojo MD LAB MICROBIOLOGY - GENERAL ORDERABLES Final Result Performing Organization Address [facility] Co de Phone Number [facility] [address] [place] [address] * (ABNORMAL) Hepatitis panel, acute (02/21/2019 5:52 AM CDT) Hep A IgM Nonreactive Nonreactive [facility] Comment: Interpretive Data If test is reported as GRAYZONE, new sample should be drawn in two weeks for testing. Current interpretive data was last revised on 2016. Hep B core IgM Nonreactive Nonreactive [facility] Comment: Interpretive Data If test is reported as GRAYZONE, new sample should be drawn for testing. Current interpretive data was last revised on 2016. Hep C Ab Reactive(A) Nonreactive [facility] Comment: Interpretive Data Positive results should be confirmed by a molecular method. If positive, a second separately collected sample should be submitted for Hepatitis C Virus (HCV) RNA Detection and Quantitation by Real-Time Reverse Doctor'S Assistant-PCR (RT-PCR). Current interpretive data was last revised on 2016. HepBsAg Nonreactive Nonreactive [facility] Blood specimen (specimen) 02/21/2019 5:52 AM CDT 02/21/2019 6:40 AM CDT Carlos Rojo MD LAB MICROBI OLOGY - GENERAL ORDERABLES Edited Result - Final [facility] [address] [place] [address] documented in this encounter Visit Diagnoses Diagnosis Hematemesis, presence of nausea not specified- Primary Hematemesis Hematochezia Blood in stool Cirrhosis (HCC) Cirrhosis of liver without mention of alcohol Polysubstance abuse (CMS/HCC) (HCC) Other, mixed, or unspecified nondependent drug abuse, unspecified Hepatitis C Unspecified viral hepatitis C without hepatic coma documented in this encounter Administered Medications Inactive Administered Medications - up to 3 most recent administrations Medication Order MAR Action Action Date Dose Rate Site acetaminophen (TYLENOL) tablet 500 mg 500 mg, oral, Every 6 hours PRN, 1st line for pain, headaches, fever, fever greater than 101.0, Starting on 02/22/19 at 1057 Given 02/25/2019 8:32 AM CDT 500 mg Given 02/24/2019 9:33 PM CDT 500 mg Given 02/24/2019 10:57 AM CDT 500 mg azithromycin (ZITHROMAX) 500 mg/255 mL in sodium chloride 0.9% (premix) 500 mg 500 mg, intravenous, at 255 mL/hr, Administer over 60 Minutes, Once, On Sun02/21/19 at 1430, For 1 dose, Indications: Abdominal/Pelvic InfectionIndications:Abdominal/P elvic Infection 02/21/2019 2:57 PM CDT 500 mg 255 mL/hr cefTRIAXone (ROCEPHIN) 1,000 mg/10 mL in sterile water (premix) 1,000 mg 1,000 mg, intravenous, at 120 mL/hr, Administer over 5 Minutes, Every 24 hours scheduled, First dose on Sun02/21/19 at 0900, For 5 doses, Indications: medical prophylaxisIndications:medical prophylaxis 02/25/2019 8:32 AM CDT 1,000 mg 120 mL/hr 02/23/2019 8:00 AM CDT 1,000 mg 120 mL/hr 02/22/2019 8:00 AM CDT 1,000 mg 120 mL/hr folic acid (FOLVITE) 1 mg in sodium chloride 0.9% 50 mL IVPB 1 mg, intravenous, at 100.4 mL/hr, Administer over 30 Minutes, Daily, First dose on Sun02/22/19 at 2000 02/23/2019 8:00 AM CDT 1 mg 100.4 mL/hr 02/22/2019 9:50 PM CDT 1 mg 100.4 mL/hr folic acid (FOLVITE) tablet 1 mg 1 mg, oral, Daily, First dose on Sun02/23/19 at 2000 Given 02/25/2019 8:31 AM CDT 1 mg Given 02/24/2019 10:40 AM CDT 1 mg Given 02/23/2019 8:36 PM CDT 1 mg LORazepam (ATIVAN) injection 0.5 mg 0.5 mg, intravenous, Once, On Sun02/22/19 at 1700, For 1 dose, For IV administration, dilute with equal volume of 0.9% sodium chloride. Do not exceed a rate of 2 mg/minute Given 02/22/2019 4:3 6 PM CDT 0.5 mg LORazepam (ATIVAN) tablet 1 mg 1 mg, oral, Every 4 hours PRN, anxiety, other, etoh withdrawal, Starting on Sun02/22/19 at 1630 Given 02/23/2019 5:52 PM CDT 1 mg Given 02/23/2019 2:20 PM CDT 1 mg Given 02/23/2019 10:53 AM CDT 1 mg LORazepam (ATIVAN) tablet 1 mg 1 mg, oral, Every 6 hours PRN, anxiety, other, etoh withdrawal, Starting on 02/23/19 at 1930 Given 02/24/2019 11:54 PM CDT 1 mg Given 02/24/2019 5:41 PM CDT 1 mg Given 02/24/2019 10:40 AM CDT 1 mg LORazepam (ATIVAN) tablet 1 mg 1 mg, oral, Every 8 hours PRN, anxiety, other, etoh withdrawal, Starting on 02/25/19 at 0715 LORazepam (ATIVAN) tablet 2 mg 2 mg, oral, Every 6 hours PRN, anxiety, other, etoh withdrawal, Starting on 02/22/19 at 1207 Given 02/22/2019 2:58 PM CDT 2 mg nadolol (CORGARD) tablet 20 mg 20 mg, oral, Daily, First dose on 02/24/19 at 1600 Given 02/25/2019 8:31 AM CDT 20 mg Given 02/24/2019 9:08 PM CDT 20 mg nicotine (NICODERM CQ) 14 mg patch 24 hour 1 patch 1 patch, transdermal, Administer over 24 Hours, Daily, First dose on 02/22/19 at 1630, Apply a new patch every 24 hours to a clean, dry, hairless site on the upper arm or hip., Indications: Nicotine DependenceIndications:Nicot ine Dependence Medication Applied 02/25/2019 8:32 AM CDT 1 patch Right Arm Medication Applied 02/24/2019 10:40 AM CDT 1 patch Left Arm Medication Applied 02/23/2019 8:00 AM CDT 1 patch Right Shoulder octreotide (SandoSTATIN) 500 mcg in sodium chloride 0.9% 100 mL (5 mcg/mL) infusion 50 mcg/hr (10 mL/hr), 5 mcg/mL, intravenous, Continuous, Starting on Sun02/21/19 at 0700, Until Sun02/24/19 at 1047, Routine New Bag 02/24/2019 7:34 AM CDT 50 mcg/hr 10 mL/h r New Bag 02/23/2019 8:35 PM CDT 50 mcg/hr 10 mL/hr Rate/Dose Verify 02/23/2019 2:20 PM CDT 50 mcg/hr 10 mL/h r ondansetron (ZOFRAN) injection 4 mg 4 mg, intravenous, Administer over 2 Minutes, Every 4 hours PRN, nausea, vomiting, Starting on Sun02/21/19 at 1543 Given 02/22/2019 11:54 AM CDT 4 mg Given 02/22/2019 1:58 AM CDT 4 mg Given 02/21/2019 3:45 PM CDT 4 mg pantoprazole (PROTONIX) injection 40 mg 40 mg, intravenous, Administer over 2 Minutes, 2 times daily, First dose (after last modification) on Sun02/21/19 at 0900, Indications: GI BleedIndications:GI Bleed Given 02/25/2019 8:31 AM CDT 40 mg Given 02/24/2019 9:07 PM CDT 40 mg Given 02/24/2019 10:39 AM CDT 40 mg prochlorperazine (COMPAZINE) injection 5 mg 5 mg, intravenous, Administer over 2 Minutes, Once, On Sun02/21/19 at 1900, For 1 dose Given 02/21/2019 6:36 PM CDT 5 mg prochlorperazine (COMPAZINE) injection 5 mg 5 mg, intravenous, Administer over 2 Minutes, Every 6 hours PRN, nausea, vomiting, Starting on Sun02/21/19 at 1923 Given 02/22/2019 4:00 PM CDT 5 mg Given 02/22/2019 8:00 AM CDT 5 mg Given 02/21/2019 11:11 PM CDT 5 mg ramelteon (ROZEREM) tablet 8 mg 8 mg, oral, Nightly PRN, sleep, Starting on Sun02/23/19 at 2243, Indications: Sleep-Onset InsomniaIndications:Sleep-Onset Insomnia Given 02/24/2019 9:26 PM CDT 8 m g Given 02/23/2019 10:56 PM CDT 8 mg sodium chloride 0.9% flush 0.5-20 mL 0.5-20 mL, intra-catheter, Every 8 hours scheduled, First dose on Sun02/21/19 at 0630, Flush volume based on line type and size. Given 02/24/2019 9:08 PM CDT 10 mL Given 02/24/2019 3:00 PM CDT 10 mL Given 02/24/2019 5:37 AM CDT 10 mL sodium chloride 0.9% flush 0.5-20 mL 0.5-20 mL, intra-catheter, As needed, line care, Starting on Sun02/21/19 at 0546, Flush volume based on line type and size. Flush before and after each use. sodium chloride 0.9% flush 0.5-20 mL 0.5-20 mL, intra-catheter, As needed, line care, Starting on Sun02/21/19 at 1306, Pre-Op/Floor (GI), Flush volume based on line type and size. Flush before and after each use. , Indications: FlushingIndications:Flushing sodium chloride 0.9% flush 0.5-20 mL 0.5-20 mL, intra-catheter, As needed, line care, Starting on Sun02/23/19 at 1228, Pre-Op/Floor (GI), Flush volume based on line type and size. Flush before and after each use. , Indications: FlushingIndications:Flushing sodium chloride 0.9% infusion 30 mL/hr, intravenous, Continuous, Starting on Sun02/24/19 at 0845, For 6 hours, Pre-Procedure (GI) New Bag 02/24/2019 8:11 AM CDT 30 mL/hr 30 mL/hr thiamine (VITAMIN B-1) 100 mg, folic acid (FOLVITE) 1 mg in sodium chloride 0.9% 100 mL IVPB intravenous, at 202.4 mL/hr, Administer over 30 Minutes, Once, On Sun02/21/19 at 0700, For 1 dose New Bag 02/21/2019 9:40 AM CDT 202.4 mL/hr thiamine (VITAMIN B-1) tablet 50 mg 50 mg, oral, Daily, First dose on 02/22/19 at 2000 Given 02/25/2019 8:31 AM CDT 50 mg Given 02/24/2019 10:39 AM CDT 50 mg Given 02/23/2019 8:00 AM CDT 50 mg documented in this encounter Active and Recently Administered Medications Times are shown in CDT. Scheduled Medication Order 02/23/2019 02/24/2019 02/25/2019 cefTRIAXone (ROCEPHIN) 1,000 mg/10 mL in sterile water (premix) 1,000 mg 1,000 mg, intravenous, at 120 mL/hr, Administer over 5 Minutes, Every 24 hours scheduled, First dose on Sun02/21/19 at 0900, For 5 doses, Indications: medical prophylaxis 0800 (New Bag - Provider: Radha Gómez, RN) 0800 (AUG Hold - Provider: Automatic Transfer Provider - Reason: Patient not available)0900 (Dose Auto Held - Provider: Automatic Transfer Provider)1020 (AUG Unhold - Provider: Automatic Transfer Provider) 0832 (New Bag - Provider: Kristi Casas, REJI) folic acid (FOLVITE) 1 mg in sodium chloride 0.9% 50 mL IVPB (CANCELED) 1 mg, intravenous, at 100.4 mL/hr, Administer over 30 Minutes, Daily, First dose on 02/22/19 at 1999 0800 (New Bag - Provider: Radha Gómez, REJI) folic acid (FOLVITE) tablet 1 mg 1 mg, oral, Daily, First dose on 02/23/19 at 1999 2036 (Given - Provider: Isabela Horn RN) 0800 (AUG Hold - Provider: Automatic Transfer Provider - Reason: Patient not available)0900 (Dose Auto Held - Provider: Automatic Transfer Provider)1020 ([facility] Unhold - Provider: Automatic Transfer Provider)1040 (Given - Provider: Kristi Casas, REJI) 0831 (Given - Provider: Kristi Casas, REJI) nadolol (CORGARD) tablet 20 mg 20 mg, oral, Daily, First dose on 02/24/19 at 1600 2108 (Given - Provider: Gerard Monte, REJI) 0831 (Given - Provider: Kristi Casas, REJI) nicotine (NICODERM CQ) 14 mg patch 24 hour 1 patch 1 patch, transdermal, Administer over 24 Hours, Daily, First dose on 02/22/19 at 1630, Apply a new patch every 24 hours to a clean, dry, hairless site on the upper arm or hip., Indications: Nicotine Dependence 0800 (Medication Applied - Provider: Radha Gómez, REJI)0801 (Medication Removed - Provider: Radha Gómez, REJI) 0800 (MAR Hold - Provider: Automatic Transfer Provider - Reason: Patient not available)0900 (Dose Auto Held - Provider: Automatic Transfer Provider)1020 (AUG Unhold - Provider: Automatic Transfer Provider)1040 (Medication Applied - Provider: Kristi Casas RN)1051 (Medication Removed - Provider: Kristi Casas RN) 0832 (Medication Applied - Provider: Kristi Casas RN)0839 (Medication Removed - Provider: Kristi Casas RN)1510 (Due: Medication Removed - Provider: Automatic Discharge Provider - Comment: Time automatically adjusted from order being discontinued) pantoprazole (PROTONIX) injection 40 mg 40 mg, intravenous, Administer over 2 Minutes, 2 times daily, First dose (after last modification) on Sun02/21/19 at 0900, Indications: GI Bleed 0800 (Given - Provider: Radha Gómez RN)2036 (Given - Provider: Isabela Horn RN) 0800 (AUG Hold - Provider: Automatic Transfer Provider - Reason: Patient not available)0900 (Dose Auto Held - Provider: Automatic Transfer Provider)1020 (AUG Unhold - Provider: Automatic Transfer Provider)1039 (Given - Provider: Kristi Casas RN)2107 (Given - Provider: Gerard Monte RN) 0831 (Given - Provider: Kristi Casas RN) sodium chloride 0.9% flush 0.5-20 mL 0.5-20 mL, intra-catheter, Every 8 hours scheduled, First dose on Sun02/21/19 at 0630, Flush volume based on line type and size. 0513 (Given - Provider: Kenyon Dubon RN)1421 (Given - Provider: Radha Gómez RN)2038 (Given - Provider: Isabela Horn RN) 0537 (Given - Provider: Isabela Horn RN)0800 (MAR Hold - Provider: Automatic Transfer Provider - Reason: Patient not available)1020 (MAR Unhold - Provider: Automatic Transfer Provider)1500 (Given - Provider: Robyn Reeves RN)2108 (Given - Provider: Gerard Monte, REJI) 0800 (Due - Provider: Gerard Monte RN)1400 (Due - Provider: Automatic Transfer Provider) thiamine (VITAMIN B-1) tablet 50 mg 50 mg, oral, Daily, First dose on Sun02/22/19 at 2000 0800 (Given - Provider: Rdaha Gómez RN) 0800 (MAR Hold - Provider: Automatic Transfer Provider - Reason: Patient not available)0900 (Dose Auto Held - Provider: Automatic Transfer Provider)1020 (AUG Unhold - Provider: Automatic Transfer Provider)1039 (Given - Provider: Kristi Casas RN) 0831 (Given - Provider: Kristi Casas RN) Continuous Medication Order 02/23/2019 02/24/2019 02/25/2019 octreotide (SandoSTATIN) 500 mcg in sodium chloride 0.9% 100 mL (5 mcg/mL) infusion (CANCELED) 50 mcg/hr (10 mL/hr), 5 mcg/mL, intravenous, Continuous, Starting on 02/21/19 at 0700, Until 02/24/19 at 1047, Routine 0450 (Rate/Dose Verify - Provider: Kenyon Dubon RN)0800 (New Bag - Provider: Radha Gómez RN)1000 (Rate/Dose Verify - Provider: Radha Gómez RN)1200 (Rate/Dose Verify - Provider: Radha Gómez RN)1420 (Rate/Dose Verify - Provider: Radha Gómez RN)2035 (New Bag - Provider: Isabela Horn, REJI) 0734 (New Bag - Provider: Kristi Casas RN) sodium chloride 0.9% infusion () 30 mL/hr, intravenous, Continuous, Starting on 02/24/19 at 0845, For 6 hours, Pre-Procedure (GI) 0811 (New Bag - Provider: Cherise Brown RN)0910 (Stopped - Provider: Cherise Brown RN) PRN Medication Order 02/23/2019 02/24/2019 02/25/2019 acetaminophen (TYLENOL) tablet 500 mg 500 mg, oral, Every 6 hours PRN, 1st line for pain, headaches, fever, fever greater than 101.0, Starting on 02/22/19 at 1057 1420 (Given - Provider: Radha Gómez RN)2121 (Given - Provider: Isaebla Horn RN) 0800 (AUG Hold - Provider: Automatic Transfer Provider - Reason: Patient not available)1020 (MAR Unhold - Provider: Automatic Transfer Provider)1057 (Given - Provider: Kristi Casas, REJI)2133 (Given - Provider: Gerard Monte, REJI) 0832 (Given - Provider: Kristi Casas RN) LORazepam (ATIVAN) tablet 1 mg (CANCELED) 1 mg, oral, Every 4 hours PRN, anxiety, other, etoh withdrawal, Starting on 02/22/19 at 1630 0512 (Given - Provider: Kenyon Dubon RN)1053 (Given - Provider: Radha Gómez, REJI)1420 (Given - Provider: Radha Gómez, REJI)1752 (Given - Provider: Ethan Kowalski RN) LORazepam (ATIVAN) tablet 1 mg (CANCELED) 1 mg, oral, Every 6 hours PRN, anxiety, other, etoh withdrawal, Starting on 02/23/19 at 1930 0003 (Given - Provider: Isabela Horn RN)0800 (AUG Hold - Provider: Automatic Transfer Provider - Reason: Patient not available)1020 (AUG Unhold - Provider: Automatic Transfer Provider)1040 (Given - Provider: Kristi Casas RN)1741 (Given - Provider: Robyn Reeves, REJI)2354 (Given - Provider: Gerard Monte, REJI) LORazepam (ATIVAN) tablet 1 mg 1 mg, oral, Every 8 hours PRN, anxiety, other, etoh withdrawal, Starting on 02/25/19 at 0715 ondansetron (ZOFRAN) injection 4 mg 4 mg, intravenous, Administer over 2 Minutes, Every 4 hours PRN, nausea, vomiting, Starting on Sun02/21/19 at 1543 0800 (AUG Hold - Provider: Automatic Transfer Provider - Reason: Patient not available)1020 (AUG Unhold - Provider: Automatic Transfer Provider) prochlorperazine (COMPAZINE) injection 5 mg 5 mg, intravenous, Administer over 2 Minutes, Every 6 hours PRN, nausea, vomiting, Starting on Sun02/21/19 at 1923 0800 (AUG Hold - Provider: Automatic Transfer Provider - Reason: Patient not available)1020 (AUG Unhold - Provider: Automatic Transfer Provider) ramelteon (ROZEREM) tablet 8 mg 8 mg, oral, Nightly PRN, sleep, Starting on 02/23/19 at 2243, Indications: Sleep-Onset Insomnia 2256 (Given - Provider: Isabela Horn, REJI) 0800 (AUG Hold - Provider: Automatic Transfer Provider - Reason: Patient not available)1020 ([facility] Unhold - Provider: Automatic Transfer Provider)6 (Given - Provider: Gerard Monte RN) sodium chloride 0.9% flush 0.5-20 mL 0.5-20 mL, intra-catheter, As needed, line care, Starting on Sun02/21/19 at 0546, Flush volume based on line type and size. Flush before and after each use. 0800 (AUG Hold - Provider: Automatic Transfer Provider - Reason: Patient not available)1020 ([facility] Unhold - Provider: Automatic Transfer Provider) sodium chloride 0.9% flush 0.5-20 mL 0.5-20 mL, intra-catheter, As needed, line care, Starting on Sun02/21/19 at 1306, Pre-Op/Floor (GI), Flush volume based on line type and size. Flush before and after each use. , Indications: Flushing sodium chloride 0.9% flush 0.5-20 mL 0.5-20 mL, intra-catheter, As needed, line care, Starting on 02/23/19 at 1228, Pre-Op/Floor (GI), Flush volume based on line type and size. Flush before and after each use. , Indications: Flushing documented in this encounter Orders Medications Ordered That Salo ht Not Have Been Administered Count Last Ordered Date First Ordered Date LORazepam (ATIVAN) tablet 1 mg 1 02/25/2019 sodium chloride 0.9% flush 0.5-20 mL 3 01/201902/21/2019 pantoprazole (PROTONIX) injection 40 mg 1 0 02/21/2019 Lab Orders Without Results Count Last Ordered D ate First Ordered Date HEPATITIS C RNA, QUANTITATIVE, PCR 1 2018 HIV 1/2 ANTIBODY PLUS P24 ANTIGEN 1 019 Diet Count Last Ordered Date First Orde red Date ADULT DISCHARGE DIET 1 02/25/2019 Nursing Count Last Ordered Date First Orde red Date DISCHARGE ACTIVITY 1 02/25/2019 DISCHARGE CALL PROVIDER 7 02/25/2019 DISCHARGE INSTRUCTIONS 02/25/2019 FOLLOW UP WITH DEPARTMENT 1 02/25/2019 VERIFY INFORMED CONSENT 1 02/24/2019 VITAL SIGNS 1 02/24/2019 WEIGH PATIENT 1 02/21/2019 Consult Count Last Ordered Date First Orde red Date IP CONSULT TO SOCIAL WORK 1 02/24/2019 CORE MEASURES Count Last Ordered Date First Ord ered Date REASON FOR NO VTE PROPHYLAXI S - HOSPITAL ADMISSION - MEDICATIONS 3 02/25/2019 02/21/2019 Case Request Count Last Ordered Date First Orde red Date CASE REQUEST GI 1 02/23/2019 documented in this encounter Additional Health Concerns Infection Onset Date Last Indicated Resolved Time 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
--- OUTSIDE RECORDS SUMMARY | 2024-06-27 04:56 | XMS_ITS | Encounter Summary ---
Author Organization [facility] Healthcare Address [address] [place] [address] Care Team Providers Care Catalyst Operator Gasoline Name Role Phone No, Physician Primary Care Provider [phone] Encounter Details Date Type Department Care Team (Latest Contact Info) Description 02/24/2019 7:30 AM CDT - 02/24/2019 7:55 AM CDT Surgery [facility] [address] [place] [address] Phi Vasquez MD [address] [facility] [address] [place], [place] [id number] ESOPHAGOGASTRODUODENOSCOPY BAND LIGATION Surgery Details Date/Time Status Location OR Service Patient Class Case Class Case Type Trauma Case? 02/24/2019 7:30 AM Posted [facility] 224 Gastroenterology Inpatient Elective Panel 1 Procedure LRB Anes Op Region Wound Class Comments ESOPHAGOGASTRODUODENOSCOPY B AND LIGATION N/A Monitor Anesthesia Care Surgeon Surgeon Role Service Panel Phi Vasquez MD Primary Gastroenterolog y 1 Amrit Painter MD Fellow Gastroenterology 1 documented in this encounter Social History [...] Sign Reading Time Taken Comments Blood Pressure 138/76 02/24/2019 7:35 AM CDT Pulse 84 02/24/2019 7:35 AM CDT Temperature 36.8 ??C (98.2 ??F) 02/24/2019 7:35 AM CD T Respiratory Rate 16 02/24/2019 7:35 AM CDT Oxygen Saturation 98% 02/24/2019 7:35 AM CDT Inhaled Oxygen Concentration - - Weight 85.7 kg (188 lb 15 oz) 02/21/2019 5:48 AM CDT Height 182.9 cm (6') 02/21/2019 5:48 AM CDT Body Mass Index 25.62 02/21/2019 5:48 AM CDT documented in this encounter Discharge Summaries * Juancho Rodriguez MD - 02/25/2019 12:09 PM CDT Inpatient Discharge Summary BRIEF OVERVIEW Admitting Provider: Tanya Gant MD Discharge Provider: Colleen Damon MD Primary Care Physician at Discharge: Physician No [phone] Admission Date: 02/21/2019 Discharge Date: 02/25/2019 Admission Location: [facility] Primary Discharge Diagnosis: Upper GI Bleed likely [...] tremens without seizures. ?? He [facility] following 4 episodes of hematemesis and 4 [...] and Hb 11.6 (repeat 11.1) at [facility]. CT A/P was consistent with cirrhosis andportal hypertension. At [facility], patient was started on a Protonix gtt, Octreotide gtt, and NS 100cc/hr. He also received 4mg Ativan for EtOH withdrawal and Compazine/Zofran for nausea. At arrival to [facility], patient has 2 PIV (18g, 20g) [...] were sent to his local pharmacy in [place], [place]. 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 No [...] you utilize the resources provided by your foster care social worker to abstain from alcohol. You should continue [...] Center 02/28/2019 1:45 PM Ainsley Mcfarland MD [facility] Contact Information for Follow-ups Gastroententerology Specialty: Gastroenterology [...] you utilize the resources provided by your foster care social worker to abstain from alcohol. You should continue [...] date by PT student Aminata Santillan. Atul Valadez PT, DPT, 02/25/19 * Juancho Rodriguez MD - 02/25/2019 11:54 AM CDT Daily Progress Note Medicine FIRM Name: Chester Dubose Today: February 25, 2019 : 1970 Age: 48 y.o. male Admit: 02/21/2019 Bed: [id number] Subjective Chief complaint: GI Bleed Interval History: [...] 5 mg, 5 mg, intravenous, Q6H PRN, Mirna Valladares MD, 5mg at 02/22/19 1600 ??? [...] through Sunday from 0800 to 1700 at [phone]. From 1700 to 0800 Sunday through Sunday and all day Sunday/Sunday, we can be reached at [phone]. Amrit Painter MD Gastroenterology Fellow, * Preeti Garay RN - 02/24/2019 3:05 PM CDT 02/24/19 1400 County Information [facility] [place], [place] Patient Information Primary Caregiver Self Support [...] Responsibility Patient/Designated decision maker was informed of [facility] fiduciary relationship as necessary Chart reviewed [...] Confirmed: No PCP. Would like appt at [facility] medicine clinic Referrals initiated to: none [...] if I may be of any assistance. [phone] * Juancho Rodriguez MD - 02/24/2019 2:53 PM CDT Daily Progress Note Medicine FIRM Name: Chester Dubose Today: February 24, 2019 : 1970 Age: 48 y.o. male Admit: 02/21/2019 Bed: [id number] Subjective Chief complaint: GI Bleed Interval History: [...] Max: 97 % I/O: Date 02/22/19699 - [birth year]1959 02/23/19699 - 02/24/19 0659 Shift 4537-8052 2987-9334 24 Hour Total 4334-8403 9352-2632 24 Hour Total INTAKE P.O. 4489 763 4860 600 600 I.V.(mL/kg) 135(1.6) 108.3(1.3) 243.3(2.8) 41(0.5) [...] Transthoracic Echo Complete W Doppler/CF Patient name: Mathenia, Chester Date of test: 02/22/2019 Type of test: TTE w/Doppler [facility] #: [id number] Date of : 1970 (M) Accountant Budget: Beatriz Plata RDCS Referring Physician: CARLOS ROJO MD Contrast Agent: Contrast Administered by: Supervised/Interpreted by: Montrell Michel MD Diagnosis: Dyspnea Pre-Op Location: [facility] Reason for test: Pre TIPS MV Structure: [...] 2=Hypo 3=Akinetic 4=Dyskin./Aneurysm 0=Not visualized) Parasternal Long [place]:MAS=1 BAS=1 MP=1 BP=1 Parasternal Short [place]:MAS=1 MS=1 IL=1 MP=1 ML=1 MA=1 Apical 4 Chambers:=1 MS=1 BS=1 BL=1 IL=1 AL=1 Apical 2 Chambers:AI=1 IL=1 BI=1 BA=1 MA=1 AA=1 LV Global Longitudinal [...] MD By signing this report, the attending contact officer certifies that he or she has personally [...] ~9 since arrival. -Continue CLD, NPO at [facility] for possible EGD Hepatitis C Assessment & [...] Prophylaxis: SCD Code Status: Full Code Dispo: TTAra Allan MD Cosigned by Capo Aguilera MD [...] plan with the ICU team and other medical/technical assistance consultant staff. * Ranjan Enriquez MD - [...] % I/O: Date 02/21/19699 - 02/22/1965802/22/19699 - 02/23/19658 Shift [id number] 24 Hour Total 5166-4926 5312-4035 24 Hour Total INTAKE P.O. 240 240 [...] plan with the ICU team and other medical/technical assistance consultant staff. documented in this encounter H&P [...] no record available. VSS upon arrival at [facility] ICU, repeat hbg 10.1-->9.5, plt 81, INR 1.63 at [facility]. No hematemesis or melenia after arrival at [facility]. U/S showed diffuse hepatic steatosis and cirrhosis, retrograde portal flow without portal vein thrombosis Pt is being transferred to the floor per ICU team. Pt had a brownish BM in the ICU today. I have reviewed the patient's records in ClinDesk and Allnvripts: my findings are summarized above. No past [...] but is now on the list to [facility] floor. - maintain 2 large IVs - T/S, [...] through Sunday from 0800 to 1700 at [phone]. From 1700 to 0800 Sunday through Sunday and all day Sunday/Sunday, we can be reached at [phone]. Lawanda Cohen MD PhD Gastroenterology Fellow Cosigned by Isidro Lozano MD at 02/21/2019 10:54 PM CDT * Mirna Valladares MD - 02/21/2019 5:56 AM CDT Critical Care Medicine History and Physical Subjective Reason for ICU Admission: Upper GI bleed in the setting of (presumed) alcoholic cirrhosis Chief Complaint: Hematemesis, Abdominal pain, dark colored stools HPI: (obtained from patient, sign-out from [facility]) Cehster Dubose is a 48 y.o. male with PMH of cirrhosis, active Hep C infection (treated at [facility], duration and status unknown), s/p ORIF for distal radius fracture 09/2018 at [facility]. Per outside recordshe also has a history of previous suicide attempt and delirium tremens without seizures. [facility] following 4 episodes of hematemesis and 4 [...] and Hb 11.6 (repeat 11.1) at [facility]. CT A/P was consistent with cirrhosis andportal hypertension. At [facility], patient was started on a Protonix gtt, Octreotide gtt, and NS 100cc/hr. He also received 4mg Ativan for EtOH withdrawal and Compazine/Zofran for nausea. 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 Objective Scheduled [...] previously experienced withdrawals with delirium tremens - CIWA protocol - UDS Cirrhosis (CMS/HCC) Assessment & [...] N/A Reilly Oneill PGY-1 02/21/2019 11:07 AM [phone] Cosigned by Capo Aguilera MD at 02/21/2019 [...] plan with the ICU team and other medical/technical assistance consultant staff. documented in this encounter Procedure Notes * Phi Vasquez MD - 02/24/2019 7:46 AM CDTAssociated Order(s): EGD [facility] Patient Name: Chester Dubose Procedure Date: 02/24/2019 7:46 AM Date of : 1970 Admit Type: Inpatient Age: 48 Gender: Male Attending MD: Phi Vasquez M.D. Room: [facility] OR POD 5 ROOM 224 Note Status: [...] passed under direct vision. The GIF [id number] endoscope was introduced through the mouth, and [...] On: 02/24/2019 7:46 AM Recognized by the [place] [employer] for promoting quality [...] in order to complete the assessment process forpotential admission. No further SW needs at this time. PIPER [place] #[phone] * Lawanda Cohen MD PhD - 02/21/2019 [...] no record available. VSS upon arrival at [facility] ICU, repeat hbg 10.1-->9.5, plt 81, INR 1.63 at [facility]. No hematemesis or melenia after arrival at [facility]. U/S showed diffuse hepatic steatosis and cirrhosis, [...] but is now on the list to [facility]. - maintain 2 large IVs - T/S, [...] through Sunday from 0800 to 1700 at [phone]. From 1700 to 0800 Sunday through Sunday and all day Sunday/Sunday, we can be reached at [phone]. Lawanda Cohen MD PhD Gastroenterology Fellow Cosigned [...] with pt. Pt verbalizes understanding. 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 To be transported home per friend. Pt discharged to home. * Ethan Kowalski RN - 02/23/2019 4:30 PM CDT Received patient from ICU per bed in stable condition but weak, skin intact. With [address] All belongings locked in the bedside drawer. No significant changes from previous assessment. * Radha Gómez RN - 02/23/2019 4:17 PM CDT Patient transferred to [facility] via bed. Report given to REJI Long. Octreotide gtt continuous infusion.Pt with 2 PIV. No wounds. Belongings include hat, pants, shirt, shoes, keys, wallet, pocket knife, $16 in wallet, ID, and card. Belongings list read to patient and patient agrees. A&O x3-4. Room air. VSS. Labs stable. * Bibi Laird RN - 02/21/2019 7:42 AM CDT Pt admitted from [facility] at 0545 per EMS. Pt has 2 PIV with octreotide and protonix running on arrival. Both meds stopped at this time. Blood cultures drawn x 2. Pt refused MICU bath. Pt belongings: Camo hat Camo shorts belt puncher Blue shirt Flip flops Pt belongings IN SAFE: $16 lim 1 debit card in wallet [facility] with set of keys documented in this [...] controlled with medication. * Hospital Course - Jaison Roblero MD - 02/22/2019 3:10 PM CDT GI [...] were sent to his local pharmacy in [place]. 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 No [...] without seizures. ?? He presented to [facility] following 4 episodes of hematemesis and 4 [...] and Hb 11.6 (repeat 11.1) at [facility]. CT A/P was consistent with cirrhosis andportal hypertension. At [facility], patient was started on a Protonix gtt, Octreotide gtt, and NS 100cc/hr. He also received 4mg Ativan for EtOH withdrawal and Compazine/Zofran for nausea. At arrival to [facility], patient has 2 PIV (18g, 20g) [...] still nauseous requiring medication. * Plan of Care - Anil Valadez RN - 02/21/2019 10:14 [...] list * Plan of Care - Ky Carranza RN - 02/21/2019 1:32 PM CDT Case Management unable to perform initial interview, for discharge planning. Patient and or family unavailable at this time. CM will attempt at a later time. If any discharge planning needs arise, please call covering case advocate. Patient admitted with: GIB Patient transferred from [...] ~9 since arrival. -Continue CLD, NPO at [facility] for possible EGD * Assessment & Plan [...] tremens - ativan prn * Plan of Taran - Bibi Laird RN - 02/21/2019 7:47 [...] dietary choices will improve 02/21/2019 0747 by iBbi Laird RN Outcome: Progressing 02/21/2019 0735 by [...] 0747 by Bibi Laird RN Outcome: Progressing 02/21/2019734 by Bibi Laird RN Outcome: Progressing Goal: Circulation will improve to fullest extent possible 02/21/2019746 by Bibi Laird RN Outcome: Progressing 02/21/2019734 by Bibi Laird RN Outcome: Progressing Goals: [...] 6:46 AM CDT CBC WITHOUT DIFFERENTIAL Timed 02/21/2 019 11:12 PM CDT BASIC METABOLIC PANEL Routine 02/21/2019 11:12 PM CDT CBC WITHOUT DIFFERENTIAL Timed 02/21/2 019 5:51 PM CDT ECG 12-LEAD STAT [...] Results * Phosphorus (02/24/2019 9:20 PM CDT) Pathologist [facility] Phosphorus, pl 3.2 2.3 - 4.5 mg/dL [facility] Comment:Hemolyzed; result ma y be falsely elevated. Blood specimen (specimen) 02/24/2019 9:20 PM CDT 02/24/2019 9:50 PM CDT Colleen Damon MD LAB BLOOD ORDERABLES Final R esult Performing Organization Address [facility] Co de Phone Number [address] [address] * Magnesium (02/24/2019 9:20 PM CDT) Pathologist [facility] Magnesium 1.9 1.4 - 2.5 mg/dL [facility] Blood specimen (specimen) 02/24/2019 9:20 PM CDT 02/24/2019 9:50 PM CDT Colleen Damon MD LAB BLOOD ORDERABLES Final R esult Performing Organization Address [facility] Co de Phone Number [address] [address] * Differential, auto (02/24/2019 9:20 PM CDT) Pathologist [facility] Neutrophil abs 3.6 1.7 - 6.5 K/cumm [facility] Imm gran abs 0.0 0.0 - 0.1 K/cumm [facility] Lymphocyte abs 1.1 0.8 - 3.3 K/cumm [facility] Monocyte abs 0.6 0.2 - 0.8 K/cumm [facility] Eosinophil abs 0.2 0.0 - 0.5 K/cumm [facility] Basophil abs 0.0 0.0 - 0.1 K/cumm [facility] Neutrophil pct 65.1 % [facility] Comment: Interpretive Data Percent cell count reference ranges are not reported, since discordance with absolute values may lead to misinterpretation of CBC data. Current Interpretive Data was last revised on 2017. Imm gran pct 0.4 % [facility] Comment: Interpretive Data Percent cell count reference ranges are not reported, since discordance with absolute values may lead to misinterpretation of CBC data. Current Interpretive Data was last revised on 2017. Lymphocyte pct 19.7 % [facility] Comment: Interpretive Data Percent cell count reference ranges are not reported, since discordance with absolute values may lead to misinterpretation of CBC data. Current Interpretive Data was last revised on 2017. Monocyte pct 10.5 % [facility] Comment: Interpretive Data Percent cell count reference ranges are not reported, since discordance with absolute values may lead to misinterpretation of CBC data. Current Interpretive Data was last revised on 2017. Eosinophil pct 3.4 % [facility] Comment: Interpretive Data Percent cell count reference ranges are not reported, since discordance with absolute values may lead to misinterpretation of CBC data. Current Interpretive Data was last revised on 2017. Basophil pct 0.9 % [facility] Comment: Interpretive Data Percent cell count reference ranges are not reported, since discordance with absolute values may lead to misinterpretation of CBC data. Current Interpretive Data was last revised on 2017. Blood specimen (specimen) 02/24/2019 9:20 PM CDT 02/24/2019 9:49 PM CDT Colleen Damon MD LAB BLOOD ORDERABLES Final R esult Performing Organization Address City/[facility]/ZIP Co de Phone Number KENNY RUIZ [address] [place] [address] * (ABNORMAL) Basic metabolic panel (02/24/2019 9:20 PM CDT) Pathologist [facility] Sodium 137 135 - 145 mmol/L [facility] Potassium, pl See Comment 3.3 - 4.9 mmol/L [facility] Comment:CRDT; Grossly Hemoly zed sample; Unable to test. Chloride 105 97 - 110 mmol/L [facility] CO2 24 22 - 32 mmol/L [facility] Anion gap 8 2 - 15 mmol/L [facility] BUN 3(L) 8 - 25 mg/dL [facility] Creatinine 0.62(L) 0.80 - 1.30 mg/dL [facility] Glucose 103 70 - 199 mg/dL [facility] Comment: Interpretive Data Fasting glucose >/= 126 [...] 2017. Calcium 8.4(L) 8.5 - 10.3 mg/dL [facility] Blood specimen (specimen) 02/24/2019 9:20 PM CDT 02/24/2019 9:50 PM CDT Colleen Damon MD LAB BLOOD ORDERABLES Final R [facility] Performing Organization Address City/[facility]/ZIP Co de Phone Number KENNY RUIZ [address] [place] [address] * (ABNORMAL) CBC with auto differential (02/24/2019 9:20 PM CDT) Pathologist [facility] WBC 5.5 3.8 - 9.9 K/cumm [facility] Hgb 10.0(L) 13.0 - 17.5 g/dL [facility] Hct 30.8(L) 38.9 - 50.3 % [facility] Plt 87(L) 150 - 400 K/cumm [facility] MPV 10.7 9.1 - 12.3 fL [facility] RBC 3.06(L) 4.30 - 5.80 M/cumm [facility] MCV 100.7(H) 81.3 - 96.4 fL [facility] MCH 32.7 27.1 - 33.3 pg [facility] MCHC 32.5 32.3 - 35.7 g/dL [facility] RDW CV 14.3 11.1 - 14.9 % [facility] RDW SD 51.7(H) 35.7 - 48.1 fL [facility] NRBC abs 0.00 0.00 - 0.01 K/cumm [facility] Blood specimen (specimen) 02/24/2019 9:20 PM CDT 02/24/2019 9:49 PM CDT us Colleen Damon MD LAB BLOOD ORDERABLES Final R esult Performing Organization Address City/State/[facility] Co de Phone Number KENNY CANDELARIA [address] [place] [address] * EGD (02/24/2019 7:46 AM CDT) Anatomical Region Laterality Modality Other Narrative Procedure Note Phi Vasquez MD - 02/24/2019 7:46 AM CDT [facility] Patient Name: Chester Dubose Procedure Date: 02/24/2019 7:46 AM Date of : 1970 Admit Type: Inpatient Age: 48 Gender: Male Attending MD: Phi Vasquez M.D. Room: [facility] OR POD 5 ROOM 224 Note Status: [...] was passed under direct vision.The GIF [id number] endoscope was introduced throughthe mouth, and advanced [...] On: 02/24/2019 7:46 AM Recognized by the [place] [employer] for promoting quality in endoscopy Phi Vasquez MD ENDOSCOPY PROCEDURES Fin al Result * Differential, auto (02/24/2019 4:35 AM CDT) Neutrophil abs 2.4 1.7 - 6.5 K/cumm [facility] Imm gran abs 0.0 0.0 - 0.1 K/cumm [facility] Lymphocyte abs 0.9 0.8 - 3.3 K/cumm [facility] Monocyte abs 0.3 0.2 - 0.8 K/cumm [facility] Eosinophil abs 0.2 0.0 - 0.5 K/cumm [facility] Basophil abs 0.0 0.0 - 0.1 K/cumm [facility] Neutrophil pct 62.7 % [facility] Comment: Interpretive Data Percent cell count reference ranges are not reported, since discordance with absolute values may lead to misinterpretation of CBC data. Current Interpretive Data was last revised on 2017. Imm gran pct 0.3 % [facility] Comment: Interpretive Data Percent cell count reference ranges are not reported, since discordance with absolute values may lead to misinterpretation of CBC data. Current Interpretive Data was last revised on 2017. Lymphocyte pct 22.6 % [facility] Comment: Interpretive Data Percent cell count reference ranges are not reported, since discordance with absolute values may lead to misinterpretation of CBC data. Current Interpretive Data was last revised on 2017. Monocyte pct 8.7 % [facility] Comment: Interpretive Data Percent cell count reference ranges are not reported, since discordance with absolute values may lead to misinterpretation of CBC data. Current Interpretive Data was last revised on 2017. Eosinophil pct 4.4 % [facility] Comment: Interpretive Data Percent cell count reference ranges are not reported, since discordance with absolute values may lead to misinterpretation of CBC data. Current Interpretive Data was last revised on 2017. Basophil pct 1.3 % [facility] Comment: Interpretive Data Percent cell count reference ranges are not reported, since discordance with absolute values may lead to misinterpretation of CBC data. Current Interpretive Data was last revised on 2017. Blood specimen (specimen) 02/24/2019 4:35 AM CDT 02/24/2019 6:08 AM CDT Carlos Rojo MD LAB BLOOD ORDERABLE S Final Result [facility] [address] [place], [place] [id number] * (ABNORMAL) CBC with auto differential (02/24/2019 4:35 AM CDT) WBC 3.9 3.8 - 9.9 K/cumm [facility] Hgb 9.6(L) 13.0 - 17.5 g/dL [facility] Hct 29.1(L) 38.9 - 50.3 % [facility] Plt 78(L) 150 - 400 K/cumm [facility] MPV 11.4 9.1 - 12.3 fL [facility] RBC 2.90(L) 4.30 - 5.80 M/cumm [facility] MCV 100.3(H) 81.3 - 96.4 fL [facility] MCH 33.1 27.1 - 33.3 pg [facility] MCHC 33.0 32.3 - 35.7 g/dL [facility] RDW CV 14.0 11.1 - 14.9 % [facility] RDW SD 50.6(H) 35.7 - 48.1 fL [facility] NRBC abs 0.00 0.00 - 0.01 K/cumm [facility] Blood specimen (specimen) 02/24/2019 4:35 AM CDT 02/24/2019 6:08 AM CDT us Carlos Rojo MD LAB BLOOD ORDERABLE S Final Result Performing Organization Address [facility] de Phone Number [address] [address] * Phosphorus (02/24/2019 4:35 AM CDT) Phosphorus, pl 2.9 2.3 - 4.5 mg/dL [facility] Blood specimen (specimen) 02/24/2019 4:35 AM CDT 02/24/2019 6:10 AM CDT us Carlos Rojo MD LAB BLOOD ORDERABLE S Final Result Performing Organization Address [facility] de Phone Number [address] [address] * Magnesium (02/24/2019 4:35 AM CDT) Magnesium 1.7 1.4 - 2.5 mg/dL [facility] Blood specimen (specimen) 02/24/2019 4:35 AM CDT 02/24/2019 6:10 AM CDT us Carlos Rojo MD LAB BLOOD ORDERABLE S Final Result Performing Organization Address [facility] Co de Phone Number [address] [address] * (ABNORMAL) Basic metabolic panel (02/24/2019 4:35 AM CDT) Pathologist [facility] Sodium 138 135 - 145 mmol/L [facility] Potassium, pl 3.3 3.3 - 4.9 mmol/L [facility] Chloride 105 97 - 110 mmol/L [facility] CO2 26 22 - 32 mmol/L [facility] Anion gap 7 2 - 15 mmol/L [facility] BUN 4(L) 8 - 25 mg/dL [facility] Creatinine 0.72(L) 0.80 - 1.30 mg/dL [facility] Glucose 127 70 - 199 mg/dL [facility] Comment: Interpretive Data Fasting glucose >/= 126 [...] 2017. Calcium 8.3(L) 8.5 - 10.3 mg/dL [facility] Blood specimen (specimen) 02/24/2019 4:35 AM CDT 02/24/2019 6:10 AM CDT us Carlos Rojo MD LAB BLOOD ORDERABLE S Final Result [facility] [address] [place] [address] * Differential, auto (02/23/2019 5:06 PM CDT) [facility] [facility] [place] Neutrophil abs 2.5 1.7 - 6.5 K/cumm [facility] Imm gran abs 0.0 0.0 - 0.1 K/cumm [facility] Lymphocyte abs 0.8 0.8 - 3.3 K/cumm [facility] Monocyte abs 0.3 0.2 - 0.8 K/cumm [facility] Eosinophil abs 0.1 0.0 - 0.5 K/cumm [facility] Basophil abs 0.0 0.0 - 0.1 K/cumm [facility] Neutrophil pct 66.6 % [facility] Comment: Interpretive Data Percent cell count reference ranges are not reported, since discordance with absolute values may lead to misinterpretation of CBC data. Current Interpretive Data was last revised on 2017. Imm gran pct 0.3 % [facility] Comment: Interpretive Data Percent cell count reference ranges are not reported, since discordance with absolute values may lead to misinterpretation of CBC data. Current Interpretive Data was last revised on 2017. Lymphocyte pct 21.2 % [facility] Comment: Interpretive Data Percent cell count reference ranges are not reported, since discordance with absolute values may lead to misinterpretation of CBC data. Current Interpretive Data was last revised on 2017. Monocyte pct 7.9 % [facility] Comment: Interpretive Data Percent cell count reference ranges are not reported, since discordance with absolute values may lead to misinterpretation of CBC data. Current Interpretive Data was last revised on 2017. Eosinophil pct 3.2 % [facility] Comment: Interpretive Data Percent cell count reference ranges are not reported, since discordance with absolute values may lead to misinterpretation of CBC data. Current Interpretive Data was last revised on 2017. Basophil pct 0.8 % [facility] Comment: Interpretive Data Percent cell count reference ranges are not reported, since discordance with absolute values may lead to misinterpretation of CBC data. Current Interpretive Data was last revised on 2017. Blood specimen (specimen) 02/23/2019 5:06 PM CDT 02/23/2019 5:58 PM CDT us Carlos Rojo MD LAB BLOOD ORDERABLE S Final Result [facility] [address] [place] [address] * (ABNORMAL) CBC with auto differential (02/23/2019 5:06 PM CDT) WBC 3.8 3.8 - 9.9 K/cumm [facility] Hgb 9.9(L) 13.0 - 17.5 g/dL [facility] Hct 29.9(L) 38.9 - 50.3 % [facility] Plt 80(L) 150 - 400 K/cumm [facility] MPV 11.0 9.1 - 12.3 fL [facility] RBC 2.96(L) 4.30 - 5.80 M/cumm [facility] MCV 101.0(H) 81.3 - 96.4 fL [facility] MCH 33.4(H) 27.1 - 33.3 pg [facility] MCHC 33.1 32.3 - 35.7 g/dL [facility] RDW CV 14.0 11.1 - 14.9 % [facility] RDW SD 51.5(H) 35.7 - 48.1 fL [facility] NRBC abs 0.00 0.00 - 0.01 K/cumm [facility] Blood specimen (specimen) 02/23/2019 5:06 PM CDT 02/23/2019 5:58 PM CDT us Carlos Rojo MD LAB BLOOD ORDERABLE S Final Result [facility] [address] [place] [address] * Differential, auto (02/23/2019 5:18 AM CDT) Pathologist [facility] [place] Neutrophil abs 2.1 1.7 - 6.5 K/cumm [facility] Imm gran abs 0.0 0.0 - 0.1 K/cumm [facility] Lymphocyte abs 0.8 0.8 - 3.3 K/cumm [facility] Monocyte abs 0.3 0.2 - 0.8 K/cumm [facility] Eosinophil abs 0.1 0.0 - 0.5 K/cumm [facility] Basophil abs 0.0 0.0 - 0.1 K/cumm [facility] Neutrophil pct 60.2 % [facility] Comment: Interpretive Data Percent cell count reference ranges are not reported, since discordance with absolute values may lead to misinterpretation of CBC data. Current Interpretive Data was last revised on 2017. Imm gran pct 0.0 % [facility] Comment: Interpretive Data Percent cell count reference ranges are not reported, since discordance with absolute values may lead to misinterpretation of CBC data. Current Interpretive Data was last revised on 2017. Lymphocyte pct 24.6 % [facility] Comment: Interpretive Data Percent cell count reference ranges are not reported, since discordance with absolute values may lead to misinterpretation of CBC data. Current Interpretive Data was last revised on 2017. Monocyte pct 9.9 % [facility] Comment: Interpretive Data Percent cell count reference ranges are not reported, since discordance with absolute values may lead to misinterpretation of CBC data. Current Interpretive Data was last revised on 2017. Eosinophil pct 4.1 % [facility] Comment: Interpretive Data Percent cell count reference ranges are not reported, since discordance with absolute values may lead to misinterpretation of CBC data. Current Interpretive Data was last revised on 2017. Basophil pct 1.2 % [facility] Comment: Interpretive Data Percent cell count reference ranges are not reported, since discordance with absolute values may lead to misinterpretation of CBC data. Current Interpretive Data was last revised on 2017. Blood specimen (specimen) 02/23/2019 5:18 AM CDT 02/23/2019 5:50 AM CDT us Carlos Rojo MD LAB BLOOD ORDERABLE S Final Result [facility] [address] [place] [address] * (ABNORMAL) CBC with auto differential (02/23/2019 5:18 AM CDT) WBC 3.4(L) 3.8 - 9.9 K/cumm [facility] Hgb 9.8(L) 13.0 - 17.5 g/dL [facility] Hct 29.9(L) 38.9 - 50.3 % [facility] Plt 80(L) 150 - 400 K/cumm [facility] MPV 10.7 9.1 - 12.3 fL [facility] RBC 2.96(L) 4.30 - 5.80 M/cumm [facility] MCV 101.0(H) 81.3 - 96.4 fL [facility] MCH 33.1 27.1 - 33.3 pg [facility] MCHC 32.8 32.3 - 35.7 g/dL [facility] RDW CV 14.0 11.1 - 14.9 % [facility] RDW SD 51.8(H) 35.7 - 48.1 fL [facility] NRBC abs 0.00 0.00 - 0.01 K/cumm [facility] Blood specimen (specimen) 02/23/2019 5:18 AM CDT 02/23/2019 5:50 AM CDT Carlos Rojo MD LAB BLOOD ORDERABLE S Final Result Performing Organization Address City/[facility] Co de Phone Number [address] [address] * Phosphorus (02/23/2019 5:18 AM CDT) Phosphorus, pl 3.7 2.3 - 4.5 mg/dL [facility] Blood specimen (specimen) 02/23/2019 5:18 AM CDT 02/23/2019 5:49 AM CDT Carlos Rojo MD LAB BLOOD ORDERABLE S Final Result Performing Organization Address City/[facility] Co de Phone Number [address] [address] * Magnesium (02/23/2019 5:18 AM CDT) Magnesium 1.8 1.4 - 2.5 mg/dL [facility] Blood specimen (specimen) 02/23/2019 5:18 AM CDT 02/23/2019 5:49 AM CDT Carlos Rojo MD LAB BLOOD ORDERABLE S Final Result Performing Organization Address City/[facility]/ZIP Co de Phone Number [place] [address] * (ABNORMAL) Basic metabolic panel (02/23/2019 5:18 AM CDT) [facility] Sodium 140 135 - 145 mmol/L [facility] Potassium, pl 3.7 3.3 - 4.9 mmol/L [facility] Chloride 105 97 - 110 mmol/L [facility] CO2 29 22 - 32 mmol/L [facility] Anion gap 6 2 - 15 mmol/L [facility] BUN 8 8 - 25 mg/dL [facility] Creatinine 0.79(L) 0.80 - 1.30 mg/dL [facility] Glucose 112 70 - 199 mg/dL [facility] Comment: Interpretive Data Fasting glucose >/= 126 [...] 2017. Calcium 8.5 8.5 - 10.3 mg/dL [facility] Blood specimen (specimen) 02/23/2019 5:18 AM CDT 02/23/2019 5:49 AM CDT Carlos Rojo MD LAB BLOOD ORDERABLE S Final Result Performing Organization Address [facility] Co de Phone Number [address] [address] * Differential, auto (02/22/2019 5:30 PM CDT) Neutrophil abs 1.7 1.7 - 6.5 K/cumm [facility] Imm gran abs 0.0 0.0 - 0.1 K/cumm [facility] Lymphocyte abs 0.9 0.8 - 3.3 K/cumm [facility] Monocyte abs 0.4 0.2 - 0.8 K/cumm [facility] Eosinophil abs 0.1 0.0 - 0.5 K/cumm [facility] Basophil abs 0.0 0.0 - 0.1 K/cumm [facility] Neutrophil pct 55.2 % [facility] Comment: Interpretive Data Percent cell count reference ranges are not reported, since discordance with absolute values may lead to misinterpretation of CBC data. Current Interpretive Data was last revised on 2017. Imm gran pct 0.3 % [facility] Comment: Interpretive Data Percent cell count reference ranges are not reported, since discordance with absolute values may lead to misinterpretation of CBC data. Current Interpretive Data was last revised on 2017. Lymphocyte pct 27.5 % [facility] Comment: Interpretive Data Percent cell count reference ranges are not reported, since discordance with absolute values may lead to misinterpretation of CBC data. Current Interpretive Data was last revised on 2017. Monocyte pct 11.5 % [facility] Comment: Interpretive Data Percent cell count reference ranges are not reported, since discordance with absolute values may lead to misinterpretation of CBC data. Current Interpretive Data was last revised on 2017. Eosinophil pct 4.5 % [facility] Comment: Interpretive Data Percent cell count reference ranges are not reported, since discordance with absolute values may lead to misinterpretation of CBC data. Current Interpretive Data was last revised on 2017. Basophil pct 1.0 % [facility] Comment: Interpretive Data Percent cell count reference ranges are not reported, since discordance with absolute values may lead to misinterpretation of CBC data. Current Interpretive Data was last revised on 2017. Blood specimen (specimen) 02/22/2019 5:30 PM CDT 02/22/2019 5:43 PM CDT us Carlos Rojo MD LAB BLOOD ORDERABLE S Final Result Performing Organization Address [facility]/ZIP Co de Phone Number [facility] [address] [place] [address] * (ABNORMAL) CBC with auto differential (02/22/2019 5:30 PM CDT) WBC 3.1(L) 3.8 - 9.9 K/cumm [facility] Hgb 9.4(L) 13.0 - 17.5 g/dL [facility] Hct 28.5(L) 38.9 - 50.3 % [facility] Plt 52(L) 150 - 400 K/cumm [facility] MPV 11.6 9.1 - 12.3 fL [facility] RBC 2.84(L) 4.30 - 5.80 M/cumm [facility] MCV 100.4(H) 81.3 - 96.4 fL [facility] MCH 33.1 27.1 - 33.3 pg [facility] MCHC 33.0 32.3 - 35.7 g/dL [facility] RDW CV 14.2 11.1 - 14.9 % [facility] RDW SD 52.3(H) 35.7 - 48.1 fL [facility] NRBC abs 0.00 0.00 - 0.01 K/cumm [facility] Blood specimen (specimen) 02/22/2019 5:30 PM CDT 02/22/2019 5:43 PM CDT Carlos Rojo MD LAB BLOOD ORDERABLE S Final Result [facility] [address] [place] [address] * Blood culture Blood (02/22/2019 12:42 PM CDT) Report Final Report: No growth [facility] Blood specimen (specimen) 02/22/2019 12:42 PM CDT 02/22/2019 1:00 PM CDT Narrative [facility] - 02/27/2019 4:00 PM CDT 1. Blood [...] organism identification may be performed using the [employer] Gram-Positive Blood Culture Assay. This assay detects microbial DNA in positive blood culture broth via hybridization of target DNA to capture oligonucleotides on a microarray. This assay has been cleared by the [place] Food and Drug Administration and its performance characteristics have been verified by the [facility]. 5. For questions about this culture, contact the Microbiology Laboratory at [phone]. Interpretive data was last revised on 2018. Carlos Rojo MD LAB MICROBIOLOGY - GENERAL ORDERABLES Final Result [facility] [address] [place] [address] * Blood culture Blood (02/22/2019 12:42 PM CDT) Report Final Report: No growth [facility] Blood specimen (specimen) 02/22/2019 12:42 PM CDT 02/22/2019 1:00 PM CDT Narrative [facility] - 02/27/2019 4:00 PM CDT 1. Blood [...] organism identification may be performed using the [employer] Gram-Positive Blood Culture Assay. This assay detects microbial DNA in positive blood culture broth via hybridization of target DNA to capture oligonucleotides on a microarray. This assay has been cleared by the [place] Food and Drug Administration and its performance characteristics have been verified by the [facility]. 5. For questions about this culture, contact the Microbiology Laboratory at [phone]. Interpretive data was last revised on 2018. Carlos Rojo MD LAB MICROBIOLOGY - GENERAL ORDERABLES Final Result [facility] [address] [place] [address] * Hepatitis B surface antibody (immune status) (02/22/2019 12:42 PM CDT) [facility] HBsAb (immune status) Nonreactive [facility] Comment: Interpretive Data A Negative Result indicates [...] PM CDT Carlos Rojo MD LAB MICROBI OLY - GENERAL ORDERABLES Edited Result - Final [facility] [place] [address] * TRANSTHORACIC ECHO (TTE) COMPLETE W DOPPLER/CF WO CONTRAST (02/22/2019 11:57 AM CDT) Anatomical Region Laterality Modality Ultrasound 02/22/2019 11:1 5 AM CDT Narrative 02/22/2019 12:10 PM CDT Patient name: Chester Dubose Date of test: 02/22/2019 Type of test: TTE w/Doppler [facility] #: [id number] Date of : 1970 (M) Accountant Budget: Beatriz Plata RDCS Referring Physician: CARLOS ROJO MD Contrast Agent: Contrast Administered by: Supervised/Interpreted by: Montrell Michel MD Diagnosis: Dyspnea Pre-Op Location: [facility] Reason for test: Pre TIPS MV Structure: [...] 2=Hypo 3=Akinetic 4=Dyskin./Aneurysm 0=Not visualized) Parasternal Long [place]:MAS=1 BAS=1 MP=1 BP=1 Parasternal Short [place]:MAS=1 MS=1 IL=1 MP=1 ML=1 MA=1 Apical 4 Chambers:=1 MS=1 BS=1 BL=1 IL=1 AL=1 Apical 2 Chambers:AI=1 IL=1 BI=1 BA=1 MA=1 AA=1 LV Global Longitudinal [...] MD By signing this report, the attending contact officer certifies that he or she has personally supervised and interpreted the echocardiogram and has reviewed and or edited and agrees with the written comments contained within the report. Procedure Note Montrell Michel III, MD - 02/22/2019 Patient name: Chester Dubose Date of test: 02/22/2019 Type of test: TTE /[facility] #: [id number] Date of : 1970 (M) Accountant Budget: Beatriz Plata RDCS Referring Physician: CARLOS ROJO MD Contrast Agent: Contrast Administered by: Supervised/Interpreted by: Montrell Michel MD Diagnosis: Dyspnea Pre-Op Location: [facility] Reason for test: Pre TIPS MV Structure: [...] 2=Hypo 3=Akinetic 4=Dyskin./Aneurysm 0=Not visualized) Parasternal Long [place]:MAS=1 BAS=1 MP=1 BP=1 Parasternal Short [place]:MAS=1 MS=1 IL=1 MP=1 ML=1 MA=1 Apical 4 Chambers:=1 MS=1 BS=1 BL=1 IL=1 AL=1 Apical 2 Chambers:AI=1 IL=1 BI=1 BA=1 MA=1 AA=1 LV Global Longitudinal [...] MD By signing this report, the attending contact officer certifies that he or she has personally supervised and interpreted the echocardiogram and has reviewed and or edited and agrees with the written comments contained within the report. us Carlos Rojo MD CV ECHO PROCEDURES Final [...] 0.0 0.0 - 0.1 K/cumm [facility] Neutrophil pct 57.7 % [facility] Comment: Interpretive Data Percent cell count reference ranges are not reported, since discordance with absolute values may lead to misinterpretation of CBC data. Current Interpretive Data was last revised on 2017. Imm gran pct 0.0 % [facility] Comment: Interpretive Data Percent cell count reference ranges are not reported, since discordance with absolute values may lead to misinterpretation of CBC data. Current Interpretive Data was last revised on 2017. Lymphocyte pct 24.6 % [facility] Comment: Interpretive Data Percent cell count reference ranges are not reported, since discordance with absolute values may lead to misinterpretation of CBC data. Current Interpretive Data was last revised on 2017. Monocyte pct 12.1 % [facility] Comment: Interpretive Data Percent cell count reference ranges are not reported, since discordance with absolute values may lead to misinterpretation of CBC data. Current Interpretive Data was last revised on 2017. Eosinophil pct 4.4 % [facility] Comment: Interpretive Data Percent cell count reference ranges are not reported, since discordance with absolute values may lead to misinterpretation of CBC data. Current Interpretive Data was last revised on 2017. Basophil pct 1.2 % [facility] Comment: Interpretive Data Percent cell count reference ranges are not reported, since discordance with absolute values may lead to misinterpretation of CBC data. Current Interpretive Data was last revised on 2017. Blood specimen (specimen) 02/22/2019 6:46 AM CDT 02/22/2019 6:54 AM CDT Carlos Rojo MD LAB BLOOD ORDERABLE S Final Result [facility] [address] [place] [address] * (ABNORMAL) CBC with auto differential (02/22/2019 6:46 AM CDT) WBC 3.2(L) 3.8 - 9.9 K/cumm [facility] Hgb 9.1(L) 13.0 - 17.5 g/dL [facility] Hct 27.4(L) 38.9 - 50.3 % [facility] Plt 67(L) 150 - 400 K/cumm [facility] MPV 12.0 9.1 - 12.3 fL [facility] RBC 2.71(L) 4.30 - 5.80 M/cumm [facility] MCV 101.1(H) 81.3 - 96.4 fL [facility] MCH 33.6(H) 27.1 - 33.3 pg [facility] MCHC 33.2 32.3 - 35.7 g/dL [facility] RDW CV 14.6 11.1 - 14.9 % [facility] RDW SD 53.2(H) 35.7 - 48.1 fL [facility] NRBC abs 0.00 0.00 - 0.01 K/cumm [facility] Blood specimen (specimen) 02/22/2019 6:46 AM CDT 02/22/2019 6:54 AM CDT Carlos Rojo MD LAB BLOOD ORDERABLE S Final Result [facility] [address] [place] [address] * (ABNORMAL) Basic metabolic panel (02/21/2019 11:12 PM CDT) Sodium 140 135 - 145 mmol/L [facility] Potassium, pl 3.9 3.3 - 4.9 mmol/L [facility] Comment:Hemolyzed; (++); pot assium value may be falsely elevated by as much as 0.3 - 0.5 mmol/L. Suggest redraw and reanalysis. Chloride 104 97 - 110 mmol/L [facility] CO2 26 22 - 32 mmol/L [facility] Anion gap 10 2 - 15 mmol/L [facility] BUN 13 8 - 25 mg/dL [facility] Creatinine 0.70(L) 0.80 - 1.30 mg/dL [facility] Glucose 115 70 - 199 mg/dL [facility] Comment: Interpretive Data Fasting glucose >/= 126 [...] 2017. Calcium 8.3(L) 8.5 - 10.3 mg/dL [facility] Blood specimen (specimen) 02/21/2019 11:12 PM CDT 02/21/2019 11:34 PM CDT us Carlos Rojo MD LAB BLOOD ORDERABLE S Final Result Performing Organization Address City/[facility]/ZIP Co de Phone Number [facility] [address] [place] [address] * (ABNORMAL) CBC without differential (02/21/2019 11:12 PM CDT) WBC 3.4(L) 3.8 - 9.9 K/cumm [facility] Hgb 9.3(L) 13.0 - 17.5 g/dL [facility] Hct 28.4(L) 38.9 - 50.3 % [facility] Plt 70(L) 150 - 400 K/cumm [facility] MPV 10.9 9.1 - 12.3 fL [facility] RBC 2.77(L) 4.30 - 5.80 M/cumm [facility] MCV 102.5(H) 81.3 - 96.4 fL [facility] MCH 33.6(H) 27.1 - 33.3 pg [facility] MCHC 32.7 32.3 - 35.7 g/dL [facility] RDW CV 14.7 11.1 - 14.9 % [facility] RDW SD 55.3(H) 35.7 - 48.1 fL [facility] NRBC abs 0.00 0.00 - 0.01 K/cumm [facility] Blood specimen (specimen) 02/21/2019 11:12 PM CDT 02/21/2019 11:37 PM CDT us Carlos Rojo MD LAB BLOOD ORDERABLE S Final Result [facility] [address] [place] [address] * (ABNORMAL) CBC without differential (02/21/2019 5:51 PM CDT) WBC 4.1 3.8 - 9.9 K/cumm [facility] Hgb 9.7(L) 13.0 - 17.5 g/dL [facility] Hct 30.2(L) 38.9 - 50.3 % [facility] Plt 64(L) 150 - 400 K/cumm [facility] MPV 10.1 9.1 - 12.3 fL [facility] RBC 2.99(L) 4.30 - 5.80 M/cumm [facility] MCV 101.0(H) 81.3 - 96.4 fL [facility] MCH 32.4 27.1 - 33.3 pg [facility] MCHC 32.1(L) 32.3 - 35.7 g/dL [facility] RDW CV 15.0(H) 11.1 - 14.9 % [facility] RDW SD 55.7(H) 35.7 - 48.1 fL [facility] NRBC abs 0.00 0.00 - 0.01 K/cumm [facility] Blood specimen (specimen) 02/21/2019 5:51 PM CDT 02/21/2019 6:08 PM CDT us Carlos Rojo MD LAB BLOOD ORDERABLE S Final Result [facility] [address] [place] [address] * ECG 12 lead (02/21/2019 3:34 PM CDT) Ventricular Rate EKG/Min 103 BPM [facility] Atrial Rate 103 BPM [facility] GA-Interval (MSEC) 146 ms [facility] QRS-Interval (MSEC) 78 ms [facility] QT-Interval (MSEC) 394 ms [facility] QTc 516 ms [facility] P [place] 20 degrees [facility] R [place] 17 degrees [facility] T [place] 31 degrees [facility] Diagnosis Sinus tachycardia Possible Left atrial enlargement Borderline ECG When compared with ECG of 21-FEB-2019 05:51, (unconfirmed) Premature ventricular complexes are no longer Present Confirmed by LEA MATHIS M.D ([id number]) on 02/24/2019 11:15:16 AM [facility] 02/21/2019 3:34 PM CDT 02/24/2019 11:15 AM CDT Carlos Rojo MD ECG ORDERABLES Fin al Result Performing Organization Address City/[facility] Co de Phone Number [facility] * Opiates Confirmation, Urine (02/21/2019 2:58 PM CDT) Codeine Conf, Ur Does Not Confirm CutOff 50 ng/mL [facility] 6- Acetylmorphine Conf, Ur Does Not Confirm CutOff 10 ng/mL [facility] Oxycodone Conf, Ur Does Not Confirm CutOff 50 ng/mL [facility] Hydrocodone Conf, Ur Does Not Confirm CutOff 50 ng/mL [facility] Morphine Conf, Ur Confirmed Positive CutOff 50 ng/mL [facility] Hydromorphone Conf, Ur Does Not Confirm CutOff 50 ng/mL [facility] Oxymorphone Conf, Ur Does Not Confirm CutOff 50 ng/mL [facility] Urine 02/21/2019 2:58 PM CDT 02/21/2019 4:26 PM CDT Carlos Rojo MD LAB URINE ORDERABLE S Final Result Performing Organization Address [facility] de Phone Number [facility] [address] [place] [address] * (ABNORMAL) Drugs of Abuse Screen, Urine with Reflex Confirmation (02/21/2019 2:58 PM CDT) Amphetamine, ur Not Detected CutOff 500ng/mL [facility] Comment: Interpretive Data - Amphetamines: ??Samples containing greater than 500 ng/mL d-methamphetamine ??or other cross-reacting amphetamine compounds are reported as positive. ??Amphetamine immunoassays are subject to significant false positive rates due to cross-reactivity of non-amphetamine drugs. Current Interpretive Data was last reviewed 2018. Barbiturates, ur Not Detected CutOff 200ng/mL [facility] Comment: Interpretive Data - Barbiturates: ??Samples containing greater than 200 ng/mL secobarbital or other cross-reacting barbiturate compounds are reported as positive. ??False positive and false negative results are possible. Current Interpretive Data was last reviewed 2018. Benzodiazepines, ur Not Detected CutOff 100ng/mL [facility] Comment: Interpretive Data - Benzodiazepines: ??Samples containing greater than 100 ng/mL nordiazepam or other cross-reacting compounds are reported as positive. ?? False positive and false negative results are possible. ?? Current Interpretive Data was last reviewed 2018. Cannabinoids, ur Detected(A) CutOff 50 ng/mL [facility] Comment: Interpretive Data - Cannabinoids: ??Samples containing greater than 50 ng/mL delta-9 THC -COOH or other cross-reacting compounds are reported as positive. ??False positive and false negative results are possible. ?? Current Interpretive Data was last reviewed 2018. Cocaine, ur Not Detected CutOff 150ng/mL [facility] Comment: Interpretive Data - Cocaine: ??Samples containing greater than 150 ng/mL benzoylecgonine or other cross-reacting compounds are reported as positive. False positive and false negative results are possible. Current Interpretive Data was last reviewed 2018. Fentanyl, Ur Not Detected Cutoff 1 ng/mL [facility] Comment: Interpretive Data - Fentanyls: ??Samples containing greater than 1 ng/mL fentanyl or other cross-reacting fentanyl compounds are reported as detected. ??False positive and false negative results are possible. Current Interpretive Data was last reviewed 2019. Methadone, ur Not Detected CutOff 300ng/mL [facility] Comment: Interpretive Data - Methadone: ??Samples containing greater than 300 ng/mL d,l-methadone or other cross-reacting compounds are reported as positive. ??False positive and false negative results are possible. Current Interpretive Data was last reviewed 2018. Opiates, ur Detected(A) CutOff 300ng/mL [facility] Comment: Interpretive Data - Opiates: ??Samples containing greater than 300 ng/mL morphine or other cross-reacting compounds are reported as positive. ??False positive and false negative results are possible. Current Interpretive Data was last reviewed 2018. Oxycodone, ur Not Detected CutOff 100ng/mL [facility] Comment: Interpretive Data - Oxycodone: ??Samples containing greater than 100 ng/mL oxycodone or other cross-reacting compounds are reported as positive. ??False positive and false negative results are possible. ?? Current Interpretive Data was last reviewed 2018. Phencyclidine, ur Not Detected CutOff 25 ng/mL [facility] Comment: Interpretive Data - Phencyclidine: ??Samples containing greater than 25 ng/mL phencyclidine or other cross-reacting compounds are reported as positive. ??False positive and false negative results are possible. ?? Current Interpretive Data was last reviewed 2018. Urine Creatinine 94 mg/dL [facility] Comment: Interpretive Data Urine Creatinine: < 10 mg/dL is extremely dilute = or > 10 but < 20 mg/dL is dilute = or > 20 mg/dL is normal Current Interpretive Data was last revised on 2017. Urine 02/21/2019 2:58 PM CDT 02/21/2019 2:58 PM CDT Narrative [facility] - 02/21/2019 5:21 PM CDT Drug of Abuse screening is performed by immunoassay for medical purposes only. ??This is not to be used for Pain Management purposes. ??If Detected, confirmation testing will be performed for Amphetamines, Cocaine, Methadone, Opiates, Oxycodone or Phencyclidine. Carlos Rojo MD LAB URINE ORDERABLE S Final Result Performing Organization Address City/State/[facility] Co de Phone Number [facility] [address] [place] [address] * (ABNORMAL) Urinalysis, microscopic only (02/21/2019 2:58 PM CDT) WBC, ur 6-10(A) 0 - 5 /HPF [facility] RBC, ur 0-2 0 - 2 /HPF [facility] Epithelial cells, squamous, ur 1-5 0 - 5 /HPF [facility] Epithelial cells, renal, ur 1-5(A) 0 - 0 /HPF [facility] Bacteria, ur Trace(A) [facility] Mucous, ur Present(A) [facility] Urine 02/21/2019 2:58 PM CDT 02/21/2019 3:13 PM CDT Carlos Rojo MD LAB URINE ORDERABLE S Final Result [facility] [address] [place] [address] * (ABNORMAL) Urinalysis reflex to microscopic and culture Urine (02/21/2019 2:58 PM CDT) Color, ur Yellow Yellow [facility] Clarity, ur Cloudy(A) Clear [facility] Specific gravity, ur 1.020 1.010 - 1.025 [facility] pH, urine 6 [facility] Protein, ur ql Negative Negative [facility] Glucose, ur ql Negative Negative [facility] Ketones, ur Trace Negative [facility] Bilirubin, ur Negative Negative [facility] Blood, ur Negative Negative [facility] Urobilinogen, ur <2.0 <2.0 mg/dL [facility] Nitrite, ur Negative Negative [facility] Leukocyte esterase, ur 1+(A) Negative [facility] Urine 02/21/2019 2:58 PM CDT 02/21/2019 3:13 PM CDT Narrative [facility] - 02/21/2019 3:32 PM CDT ?? Urine pH is affected by diet, medications, systemic acid-base disturbances, and renal tubular function. ??pH may affect urinary stone formation. ??For example, urine pH below 6.0 may help reduce the tendency for calcium phosphate stones and pH greater than 6.0 may reduce the tendency for uric acid stone formation. Source: [employer]. Last revised 06-28-2017 Urine pH is affected by diet, medications, systemic acid-base disturbances, and renal tubular function. ??pH may affect urinary stone formation. ??For example, urine pH below 6.0 may help reduce the tendency for calcium phosphate stones and pH greater than 6.0 may reduce the tendency for uric acid stone formation. Source: [employer]. Last revised 06-28-2017 Carlos Rojo MD LAB MICROBIOLOGY - GENERAL ORDERABLES Final Result Performing Organization Address City/[facility]/ZIP Co de Phone Number [facility] [address] [place] [address] * (ABNORMAL) Protime-INR (02/21/2019 12:55 PM CDT) PT 17.0(H) 8.6 - 13.0 sec [facility] INR 1.56(H) 0.80 - 1.20 [facility] Comment: Interpretive Data Inpatient therapeutic ranges* Atrial fibrillation ?2.0-3.0 INR Venous thrombo-embolism ?2.0-3.0 INR Bioprosthetic heart valve ?* Mechanical heart valve, bileaflet or tilting disk,aortic position ? 2.0-3.0 INR All other,or bileaflet or tilting disk, in mitral position ? 2.5-3.5 INR *See the pharmacy resource directory (PHRED) for an updated copy of the Tool Book at [email or web address] Current Interpretive Data was last revised 2011. Blood specimen (specimen) 02/21/2019 12:55 PM CDT 02/21/2019 1:03 PM CDT us Carlos Rojo MD LAB BLOOD ORDERABLE S Final Result Performing Organization Address [facility]/ZIP Co de Phone Number [facility] [address] [place] [address] * (ABNORMAL) CBC without differential (02/21/2019 11:48 AM CDT) Pathologist [facility] WBC 4.2 3.8 - 9.9 K/cumm [facility] Hgb 9.5(L) 13.0 - 17.5 g/dL [facility] Hct 29.1(L) 38.9 - 50.3 % [facility] Plt 78(L) 150 - 400 K/cumm [facility] MPV 11.1 9.1 - 12.3 fL [facility] RBC 2.88(L) 4.30 - 5.80 M/cumm [facility] MCV 101.0(H) 81.3 - 96.4 fL [facility] MCH 33.0 27.1 - 33.3 pg [facility] MCHC 32.6 32.3 - 35.7 g/dL [facility] RDW CV 15.1(H) 11.1 - 14.9 % [facility] RDW SD 56.9(H) 35.7 - 48.1 fL [facility] NRBC abs 0.00 0.00 - 0.01 K/cumm [facility] Blood specimen (specimen) 02/21/2019 11:48 AM CDT 02/21/2019 12:06 PM CDT us Carlos Rojo MD LAB BLOOD ORDERABLE S Final Result [facility] [address] [place] [address] * X-ray chest 1 view (Portable) (02/21/2019 [...] EXAMINATION: 1 view chest radiograph Procedure Note Kenyon Golden MD - 02/21/2019 EXAMINATION: 1 view [...] it. Electronically signed by: Kenyon Golden M.D. Carlos Rojo MD IMG XR PROCEDURES F inal Result * (ABNORMAL) Ammonia (02/21/2019 9:41 AM CDT) Ammonia 115(H) 5 - 50 mcmol/L [facility] Comment:Hemolyzed; result ma y be falsely elevated. Blood specimen (specimen) 02/21/2019 9:41 AM CDT 02/21/2019 10:07 AM CDT Carlos Rojo MD LAB BLOOD ORDERABLE S Final Result Performing Organization Address [facility] Co de Phone Number [address] [address] * Lipase (02/21/2019 9:41 AM CDT) Lipase 37 10 - 99 Units/L [facility] Blood specimen (specimen) 02/21/2019 9:41 AM CDT 02/21/2019 10:07 AM CDT Carlos Rojo MD LAB BLOOD ORDERABLE S Final Result Performing Organization Address [facility] Co de Phone Number [facility] [address] [place] [address] * Check Sample (02/21/2019 9:41 AM CDT) ABO Rh O Positive [facility] HCLL OTHER 02/21/2019 9:41 AM CDT 02/21/2019 10:14 AM CDT us Carlos Rojo MD LAB BLOOD ORDERABLE S Final Result [facility] [address] [place] [address] * US Liver W Complete Doppler (C) [...] by: Leilani Sykes M.D. Carlos Rojo MD [facility] US PROCEDURES F inal Result * Type and screen (02/21/2019 6:28 AM CDT) Xiang, indirect Negative [facility] ABO Rh O Positive [facility] Blood specimen (specimen) 02/21/2019 6:28 AM CDT 02/21/2019 6:41 AM CDT Narrative [facility] - 02/21/2019 7:49 AM CDT Has the patient had Daratumumab (Darzalex) in the past 6 months?->Unknown Carlos Rojo MD LAB BLOOD BANK TEST ORDERABLES Final Result [facility] [address] [place] [address] * Blood culture Blood (02/21/2019 6:28 AM CDT) Report Final Report: No growth [facility] Blood specimen (specimen) 02/21/2019 6:28 AM CDT 02/21/2019 6:51 AM CDT Narrative [facility] - 02/26/2019 7:01 AM CDT From a [...] organism identification may be performed using the [employer]igene Gram-Positive Blood Culture Assay. This assay detects microbial DNA in positive blood culture broth via hybridization of target DNA to capture oligonucleotides on a microarray. This assay has been cleared by the [place] Food and Drug Administration and its performance characteristics have been verified by the [facility]. 5. For questions about this culture, contact the Microbiology Laboratory at [phone]. Interpretive data was last revised on 2018. us Carlos Rojo MD LAB MICROBIOLOGY - GENERAL ORDERABLES Final Result [facility] [address] [place] [address] * (ABNORMAL) Blood culture Blood (02/21/2019 6:28 AM CDT) Direct Specimen Exam Rapid Molecular Analysis: Staphylococcus species detected by the [employer] Blood Culture Nucleic Acid Test. This is most suggestive of a coagulase negative Staphylococcus species. Please refer to final culture-based result for confirmation. This test does not exclude the possibility of a mixed bacterial infection. Notification of: Staphylococcus species ??called to and read back by: DR. TERV RUIZ [phone] on 02/22/2019 07:11:40 by: JOSE MONTE MLS [facility] Direct Specimen Exam Stain: Gram Positive Cocci in clusters Notification of: Gram Positive Cocci in clusters called to and read back by: DR. MIRNA VALLADARES [phone] on 02/22/2019 03:01:37 by: JOSE MONTE MLS Time to culture positivity (anaerobic media): 17.6 hours [facility] Report Final Report: Coagulase negative Staphylococcus species Isolate of questionable significance. ??If a similar isolate is recovered from a second blood culture collected within 3 days of this culture, both will be evaluated and, if determined to be related, antimicrobial susceptibility testing will be performed. (.) [facility] Organism COAGULASE NEGATIVE STAPHYLOCOCCUS SPECIES [facility] Blood specimen (specimen) 02/21/2019 6:28 AM CDT 02/21/2019 6:51 AM CDT Narrative [facility] - 02/27/2019 1:26 PM CDT 1. Blood [...] organism identification may be performed using the [employer]ig[employer] Gram-Positive Blood Culture Assay. This assay detects microbial DNA in positive blood culture broth via hybridization of target DNA to capture oligonucleotides on a microarray. This assay has been cleared by the [place] Food and Drug Administration and its performance characteristics have been verified by the [facility]. 5. For questions about this culture, contact the Microbiology Laboratory at [phone]. Interpretive data was last revised on 2018. Carlos Rojo MD LAB MICROBIOLOGY - GENERAL ORDERABLES Final Result [facility] [address] [place] [address] * Differential, auto (02/21/2019 6:04 AM CDT) Neutrophil abs 2.8 1.7 - 6.5 K/cumm [facility] Imm gran abs 0.0 0.0 - 0.1 K/[facility]umm [facility] Lymphocyte abs 1.1 0.8 - 3.3 K/cumm [facility] Monocyte abs 0.7 0.2 - 0.8 K/cumm [facility] Eosinophil abs 0.0 0.0 - 0.5 K/cumm [facility] Basophil abs 0.0 0.0 - 0.1 K/cumm [facility] Neutrophil pct 59.2 % [facility] Comment: Interpretive Data Percent cell count reference ranges are not reported, since discordance with absolute values may lead to misinterpretation of CBC data. Current Interpretive Data was last revised on 2017. Imm gran pct 0.2 % [facility] Comment: Interpretive Data Percent cell count reference ranges are not reported, since discordance with absolute values may lead to misinterpretation of CBC data. Current Interpretive Data was last revised on 2017. Lymphocyte pct 23.3 % [facility] Comment: Interpretive Data Percent cell count reference ranges are not reported, since discordance with absolute values may lead to misinterpretation of CBC data. Current Interpretive Data was last revised on 2017. Monocyte pct 15.3 % [facility] Comment: Interpretive Data Percent cell count reference ranges are not reported, since discordance with absolute values may lead to misinterpretation of CBC data. Current Interpretive Data was last revised on 2017. Eosinophil pct 1.0 % [facility] Comment: Interpretive Data Percent cell count reference ranges are not reported, since discordance with absolute values may lead to misinterpretation of CBC data. Current Interpretive Data was last revised on 2017. Basophil pct 1.0 % [facility] Comment: Interpretive Data Percent cell count reference ranges are not reported, since discordance with absolute values may lead to misinterpretation of CBC data. Current Interpretive Data was last revised on 2017. Blood specimen (specimen) 02/21/2019 6:04 AM CDT 02/21/2019 6:20 AM CDT us Carlos Rojo MD LAB BLOOD ORDERABLE S Final Result [facility] [address] [place] [address] * (ABNORMAL) CBC with auto differential (02/21/2019 6:04 AM CDT) WBC 4.8 3.8 - 9.9 K/cumm [facility] Hgb 10.1(L) 13.0 - 17.5 g/dL [facility] Hct 31.4(L) 38.9 - 50.3 % [facility] Plt 81(L) 150 - 400 K/cumm [facility] MPV 10.7 9.1 - 12.3 fL [facility] RBC 3.05(L) 4.30 - 5.80 M/cumm [facility] MCV 103.0(H) 81.3 - 96.4 fL [facility] MCH 33.1 27.1 - 33.3 pg [facility] MCHC 32.2(L) 32.3 - 35.7 g/dL [facility] RDW CV 15.4(H) 11.1 - 14.9 % [facility] RDW SD 58.4(H) 35.7 - 48.1 fL [facility] NRBC abs 0.00 0.00 - 0.01 K/cumm [facility] Blood specimen (specimen) 02/21/2019 6:04 AM CDT 02/21/2019 6:20 AM CDT Carlos Rojo MD LAB BLOOD ORDERABLE S Final Result [facility] [address] [place] [address] * (ABNORMAL) Protime-INR (02/21/2019 6:04 AM CDT) PT 17.8(H) 8.6 - 13.0 sec [facility] INR 1.63(H) 0.80 - 1.20 [facility] Comment: Interpretive Data Inpatient therapeutic ranges* Atrial fibrillation ?2.0-3.0 INR Venous thrombo-embolism ?2.0-3.0 INR Bioprosthetic heart valve ?* Mechanical heart valve, bileaflet or tilting disk,aortic position ? 2.0-3.0 INR All other,or bileaflet or tilting disk, in mitral position ? 2.5-3.5 INR *See the pharmacy resource directory (PHRED) for an updated copy of the Tool Book at [email or web address] Current Interpretive Data was last revised 2011. Blood specimen (specimen) 02/21/2019 6:04 AM CDT 02/21/2019 6:11 AM CDT Carlos Rojo MD LAB BLOOD ORDERABLE S Final Result Performing Organization Address [facility] de Phone Number [address] [address] * Lactate (02/21/2019 6:04 AM CDT) Lactate 1.5 0.7 - 2.0 mmol/L [facility] Blood specimen (specimen) 02/21/2019 6:04 AM CDT 02/21/2019 6:19 AM CDT Carlos Rojo MD LAB BLOOD ORDERABLE S Final Result Performing Organization Address [facility] de Phone Number [address] [address] * Phosphorus (02/21/2019 6:04 AM CDT) Phosphorus, pl 3.2 2.3 - 4.5 mg/dL [facility] Blood specimen (specimen) 02/21/2019 6:04 AM CDT 02/21/2019 6:19 AM CDT us Carlos Rojo MD LAB BLOOD ORDERABLE S Final Result Performing Organization Address [facility] de Phone Number [address] [address] * Magnesium (02/21/2019 6:04 AM CDT) Magnesium 1.8 1.4 - 2.5 mg/dL [facility] Blood specimen (specimen) 02/21/2019 6:04 AM CDT 02/21/2019 6:19 AM CDT us Carlos Rojo MD LAB BLOOD ORDERABLE S Final Result Performing Organization Address [facility] de Phone Number [facility] [address] [place] [address] * (ABNORMAL) Comprehensive metabolic panel (02/21/2019 6:04 AM CDT) Sodium 145 135 - 145 mmol/L [facility] Potassium, pl 4.9 3.3 - 4.9 mmol/L [facility] Comment:Hemolyzed; (++); pot assium value may be falsely elevated by as much as 0.3 - 0.5 mmol/L. Suggest redraw and reanalysis. Chloride 111(H) 97 - 110 mmol/L [facility] CO2 27 22 - 32 mmol/L [facility] Anion gap 7 2 - 15 mmol/L [facility] BUN 19 8 - 25 mg/dL [facility] Creatinine 0.70(L) 0.80 - 1.30 mg/dL [facility] Glucose 126 70 - 199 mg/dL [facility] Comment: Interpretive Data Fasting glucose >/= 126 [...] 2017. Calcium 8.2(L) 8.5 - 10.3 mg/dL [facility] Bilirubin, total 2.4(H) 0.1 - 1.2 mg/dL [facility] Protein, pl 6.9 6.5 - 8.5 g/dL [facility] Albumin 3.0(L) 3.5 - 5.0 g/dL [facility] Alk phos 93 40 - 130 Units/L [facility] ALT 44 7 - 55 Units/L [facility] AST 159(H) 10 - 50 Units/L [facility] Comment:Hemolyzed; result ma y be falsely elevated. Blood specimen (specimen) 02/21/2019 6:04 AM CDT 02/21/2019 6:19 AM CDT Carlos Rojo MD LAB BLOOD ORDERABLE S Final Result Performing Organization Address [facility] Co de Phone Number [facility] [address] [place] [address] * MRSA culture Nasal (02/21/2019 6:04 AM CDT) Report Final Report: Negative [facility] Nasal 02/21/2019 6:04 AM CDT 02/21/2019 6:13 AM CDT Narrative [facility] - 02/22/2019 7:12 AM CDT Testing performed by [facility] ([phone]). Carlos Rojo MD LAB MICROBIOLOGY - GENERAL ORDERABLES Final Result Performing Organization Address [facility] de Phone Number [facility] [address] [place] [address] * (ABNORMAL) Hepatitis panel, acute (02/21/2019 5:52 AM CDT) Hep A IgM Nonreactive Nonreactive [facility] Comment: Interpretive Data If test is reported as GRAYZONE, new sample should be drawn in two weeks for testing. Current interpretive data was last revised on 2016. Hep B core IgM Nonreactive Nonreactive [facility] Comment: Interpretive Data If test is reported as GRAYZONE, new sample should be drawn for testing. Current interpretive data was last revised on 2016. Hep C Ab Reactive(A) Nonreactive [facility] Comment: Interpretive Data Positive results should be confirmed by a molecular method. If positive, a second separately collected sample should be submitted for Hepatitis C Virus (HCV) RNA Detection and Quantitation by Real-Time Reverse Manager Ob-PCR (RT-PCR). Current interpretive data was last revised on 2016. HepBsAg Nonreactive Nonreactive [facility] Blood specimen (specimen) 02/21/2019 5:52 AM CDT 02/21/2019 6:40 AM CDT us Carlos Rojo MD LAB MICROBI OLOGY - GENERAL ORDERABLES Edited Result - Final [facility] [address] [place] [address] documented in this encounter Visit Diagnoses Diagnosis Hematemesis, presence of nausea not specified- Primary Hematemesis Hematochezia Blood in stool Cirrhosis (HCC) Cirrhosis of liver without mention of alcohol Polysubstance abuse (CMS/HCC) (HCC) Other, mixed, or unspecified nondependent drug abuse, unspecified Hepatitis C Unspecified viral hepatitis C without hepatic coma Hematemesis, presence of nausea not specified documented in this encounter Administered Medications Inactive [...] Given 02/24/2019 10:57 AM CDT 500 mg folic acid (FOLVITE) tablet 1 mg 1 mg, oral, Daily, First dose on 02/23/19 at 2000 Given 02/25/2019 8:31 AM CDT 1 mg Given 02/24/2019 10:40 AM CDT 1 mg Given 02/23/2019 8:36 PM CDT 1 mg LORazepam (ATIVAN) tablet 1 mg 1 mg, oral, Every 8 hours PRN, anxiety, other, etoh withdrawal, Starting on 02/25/19 at 0715 nadolol (CORGARD) tablet 20 mg 20 mg, [...] 8:00 AM CDT 1 patch Right Shoulder ondansetron (ZOFRAN) injection 4 mg 4 mg, [...] and after each use. , Indications: FlushingIndications:Flushing thiamine (VITAMIN B-1) tablet 50 mg 50 mg, oral, Daily, First dose on Sun02/22/19 at 2000 Given 02/25/2019 8:31 AM CDT [...] prophylaxis 0800 (New Bag - Provider: Radha Gómez RN) 0800 (AUG Hold - Provider: Automatic Transfer Provider - Reason: Patient not available)0900 (Dose Auto Held - Provider: Automatic Transfer Provider)1020 (MAR Unhold - Provider: Automatic Transfer Provider) 0832 (New Bag - Provider: Kristi Casas RN) folic acid (FOLVITE) 1 mg in sodium chloride 0.9% 50 mL IVPB (CANCELED) 1 mg, intravenous, at 100.4 mL/hr, Administer over 30 Minutes, Daily, First dose on 02/22/19 at 2000 0800 (New Bag - Provider: Radha Gómez RN) folic acid (FOLVITE) tablet 1 mg 1 mg, oral, Daily, First dose on 02/23/19 at 2000 2036 (Given - Provider: Isabela Horn RN) 0800 (AUG Hold - Provider: Automatic Transfer Provider - Reason: Patient not available)0900 (Dose Auto Held - Provider: Automatic Transfer Provider)1020 (AUG Unhold - Provider: Automatic Transfer Provider)1040 (Given - Provider: Kristi Casas RN) 0831 (Given - Provider: Kristi Casas, REJI) nadolol (CORGARD) tablet 20 mg 20 mg, oral, Daily, First dose on 02/24/19 at 1600 2108 (Given - Provider: Gerard Monte RN) 0831 (Given - Provider: Kristi Casas, REJI) nicotine (NICODERM CQ) 14 mg patch 24 hour 1 patch 1 patch, transdermal, Administer over 24 Hours, Daily, First dose on 02/22/19 at 1630, Apply a new patch every 24 hours to a clean, dry, hairless site on the upper arm or hip., Indications: Nicotine Dependence 0800 (Medication Applied - Provider: Radha Gómez RN)0801 (Medication Removed - Provider: Radha Gómez RN) 0800 (AUG Hold - Provider: Automatic Transfer Provider - Reason: Patient not available)0900 (Dose Auto Held - Provider: Automatic Transfer Provider)1020 (AUG Unhold - Provider: Automatic Transfer Provider)1040 (Medication Applied - Provider: Kristi Casas RN)1051 (Medication Removed - Provider: Kristi Casas RN) 0832 (Medication Applied - Provider: Kristi Casas, REJI)0839 (Medication Removed - Provider: Kristi Casas, REJI)1510 (Due: Medication Removed - Provider: Automatic Discharge Provider - Comment: Time automatically adjusted from order being discontinued) pantoprazole (PROTONIX) injection 40 mg 40 mg, intravenous, Administer over 2 Minutes, 2 times daily, First dose (after last modification) on Sun02/21/19 at 0900, Indications: GI Bleed 0800 (Given - Provider: Radha Gómez RN)203 (Given - Provider: Isabela Horn RN) 0800 (AUG Hold - Provider: Automatic Transfer Provider - Reason: Patient not available)0900 (Dose Auto Held - Provider: Automatic Transfer Provider)1020 (AUG Unhold - Provider: Automatic Transfer Provider)103 (Given - Provider: Kristi Casas, REJI)210 (Given - Provider: Gerard Monte, REJI) 0831 (Given - Provider: Kristi Casas, RN) sodium chloride 0.9% flush 0.5-20 mL 0.5-20 mL, intra-catheter, Every 8 hours scheduled, First dose on Sun02/21/19 at 0630, Flush volume based on line type and size. 0513 (Given - Provider: Kenyon Dubon RN)1421 (Given - Provider: Radha Gómez RN)203 (Given - Provider: Isabela Horn RN) 0537 (Given - Provider: Isabela Horn RN)0800 (AUG Hold - Provider: Automatic Transfer Provider - Reason: Patient not available)1020 (AUG Unhold - Provider: Automatic Transfer Provider)1500 (Given - Provider: Robyn Reeves RN)2108 (Given - Provider: Gerard Monte, REJI) 0800 (Due - Provider: Gerard Monte, ERJI)1400 (Due - Provider: Automatic Transfer Provider) thiamine (VITAMIN B-1) tablet 50 mg 50 mg, oral, Daily, First dose on Sun02/22/19 at 2000 0800 (Given - Provider: Radha Gómez RN) 0800 (AUG Hold - Provider: Automatic Transfer Provider - Reason: Patient not available)0900 (Dose Auto Held - Provider: Automatic Transfer Provider)1020 (AUG Unhold - Provider: Automatic Transfer Provider)103 (Given - Provider: Kristi Casas, REJI) 0831 (Given - Provider: Kristi Casas, REJI) Continuous Medication Order 02/23/2019 02/24/2019 02/25/2019 octreotide (SandoSTATIN) 500 mcg in sodium chloride 0.9% 100 mL (5 mcg/mL) infusion (CANCELED) 50 mcg/hr (10 mL/hr), 5 mcg/mL, intravenous, Continuous, Starting on Sun02/21/19 at 0700, Until 02/24/19 at 1047, Routine 0450 (Rate/Dose Verify - Provider: Kenyon Dubon RN)0800 (New Bag - Provider: Radha Gómez, REJI)1000 (Rate/Dose Verify - Provider: Radha Gómez RN)1200 (Rate/Dose Verify - Provider: Radha Gómez RN)1420 (Rate/Dose Verify - Provider: Radha Gómez, RN)2035 (New Bag - Provider: Isabela Horn RN) 0734 (New Bag - Provider: Kristi Casas [...] at 1057 1420 (Given - Provider: Radha Gómez, REJI)2121 (Given - Provider: Isabela Horn RN) 0800 (AUG Hold - Provider: Automatic Transfer Provider - Reason: Patient not available)1020 (AUG Unhold - Provider: Automatic Transfer Provider)1057 (Given - Provider: Kristi Casas, REJI)2133 (Given - Provider: Gerard Monte RN) 0832 (Given - Provider: Kristi Casas, REJI) LORazepam (ATIVAN) tablet 1 mg (CANCELED) 1 mg, oral, Every 4 hours PRN, anxiety, other, etoh withdrawal, Starting on 02/22/19 at 1630 0512 (Given - Provider: Kenyon Dubon RN)1053 (Given - Provider: Radha Gómez RN)1420 (Given - Provider: Radha Gómez, REJI)1752 (Given - Provider: Ethan Kowalski RN) LORazepam (ATIVAN) tablet 1 mg (CANCELED) 1 mg, oral, Every 6 hours PRN, anxiety, other, etoh withdrawal, Starting on Sun02/23/19 at 1930 0003 (Given - Provider: Isabela Horn RN)0800 ([facility] Hold - Provider: Automatic Transfer Provider - Reason: Patient not available)1020 ([facility] Unhold - Provider: Automatic Transfer Provider)1040 (Given - Provider: Kristi Casas RN)1741 (Given - Provider: Robyn Reeves RN)2354 (Given - Provider: Gerard Monte, REJI) LORazepam (ATIVAN) tablet 1 mg 1 mg, oral, Every 8 hours PRN, anxiety, other, etoh withdrawal, Starting on Sun02/25/19 at 0715 ondansetron (ZOFRAN) injection 4 mg 4 mg, intravenous, Administer over 2 Minutes, Every 4 hours PRN, nausea, vomiting, Starting on Sun02/21/19 at 1543 0800 ([facility] Hold - Provider: Automatic Transfer Provider - Reason: Patient not available)1020 ([facility] Unhold - Provider: Automatic Transfer Provider) prochlorperazine (COMPAZINE) injection 5 mg 5 mg, intravenous, Administer over 2 Minutes, Every 6 hours PRN, nausea, vomiting, Starting on Sun02/21/19 at 1923 0800 ([facility] Hold - Provider: Automatic Transfer Provider - Reason: Patient not available)1020 ([facility] Unhold - Provider: Automatic Transfer Provider) ramelteon (ROZEREM) tablet 8 mg 8 mg, oral, Nightly PRN, sleep, Starting on Sun02/23/19 at 2243, Indications: Sleep-Onset Insomnia 2256 (Given - Provider: Isabela Horn RN) 0800 ([facility] Hold - Provider: Automatic Transfer Provider - Reason: Patient not available)1020 ([facility] Unhold - Provider: Automatic Transfer Provider)2126 (Given - Provider: Gerard Monte RN) sodium chloride 0.9% flush 0.5-20 mL 0.5-20 mL, intra-catheter, As needed, line care, Starting on Sun02/21/19 at 0546, Flush volume based on line type and size. Flush before and after each use. 0800 (AUG Hold - Provider: Automatic Transfer Provider - Reason: Patient not available)1020 (AUG Unhold - Provider: Automatic Transfer Provider) sodium [...] Ordered Date LORazepam (ATIVAN) tablet 1 mg 3 02/25/2019 02/22/2019 nadolol (CORGARD) tablet 20 mg 1 02/24/2019 sodium chloride 0.9% infusion 1 02/24/2019 folic acid (FOLVITE) tablet 1 mg 1 02/24/20 19 ramelteon (ROZEREM) tablet 8 mg 1 9 sodium chloride 0.9% flush 0.5-20 mL 4 01/201902/21/2019 acetaminophen (TYLENOL) tablet 500 mg 1 12/2018 folic acid (FOLVITE) 1 mg in sodium chloride 0.9% 50 mL IVPB 02/22/2019 LORazepam (ATIVAN) injection 0.5 mg 1 02/22 LORazepam (ATIVAN) tablet 2 mg 1 02/22/2019 nicotine (NICODERM CQ) 14 mg patch 24 hour 1 patch 02/22/2019 thiamine (VITAMIN B-1) tablet 50 mg 1 02/22 azithromycin (ZITHROMAX) 500 mg/255 mL in sodium chloride 0.9% (premix) 500 mg 1 02/21/2019 cefTRIAXone (ROCEPHIN) 1,000 mg/10 mL in sterile water (premix) 1,000 mg 1 02/21/2019 octreotide (SandoSTATIN) 500 mcg in sodium chloride 0.9% 100 mL (5 mcg/mL) infusion 1 02/21/2019 ondansetron (ZOFRAN) injection 4 mg 1 02/21 pantoprazole (PROTONIX) injection 40 mg 2 0 02/21/2019 prochlorperazine (COMPAZINE) injection 5 mg 2 02/21/2019 thiamine (VITAMIN B-1) 100 m g, folic acid (FOLVITE) 1 mg in sodium chloride 0.9% 100 mL IVPB 1 02/21/2019 Lab Orders Without Results Count Last Ordered D ate First Ordered Date HEPATITIS C RNA, QUANTITATIVE, PCR 1 2018 HIV 1/2 ANTIBODY PLUS P24 ANTIGEN 1 019 Diet Count Last Ordered Date First Orde red Date ADULT DISCHARGE DIET 1 02/25/2019 Nursing Count Last Ordered Date First Orde red Date DISCHARGE ACTIVITY 1 02/25/2019 DISCHARGE CALL PROVIDER 7 02/25/2019 DISCHARGE INSTRUCTIONS 1 02/25/2019 FOLLOW UP WITH DEPARTMENT 1 02/25/2019 [...] documented as of this encounter Care Teams [employer] Relationship Specialty Start Date End Date No, Physician PCP - General 02/21/19 03/01/19 documented as of this encounter
--- OUTSIDE RECORDS SUMMARY | 2024-06-27 04:56 | XMS_ITS | Encounter Summary ---
Author Organization [facility] Healthcare Address [address] [place] [id number] Care Team Providers Care Assistant [employer] Name Role Phone Jayne Bowen MD Primary Care Provider + Encounter Details Date Type Department Care Team (Late st Contact Info) Description 12/17/2018 1:01 AM CDT - 12/17/2018 2:49 [place] [phone] Unknown, Juancho Carson MD [address] [place] [address] Discharge Disposition: Discharge to home or self [...] Sign Reading Time Taken Comments Blood Pressure 154/95 12/17/2018 1:01 AM CDT Pulse 97 12/17/2018 1:01 AM CDT Temperature 36.7 ??C (98.1 ??F) 12/17/2018 1:01 AM CD T Respiratory Rate - - Oxygen Saturation 96% 12/17/2018 1:01 AM CDT Inhaled Oxygen Concentration - - Weight 95 kg (209 lb 7 oz) 12/17/2018 1:01 AM CD T Height 182.9 cm (6') 12/17/2018 1:01 AM CDT Body Mass Index 28.41 12/17/2018 1:01 AM CDT documented in this encounter Medications at Time of Discharge Medication Sig Dispense Quantity Refills Last Filled Start D ate End Date amLODIPine (NORVASC) 5 mg tablet 5 mg 03/08/2018 05/27/2020 ARIPiprazole (ABILIFY) 10 mg tablet 10/25/2018 03/03/2019 lamoTRIgine (LaMICtal) 25 mg tablet 10/25/2018 03/03/2019 QUEtiapine XR (SEROquel XR) 300 mg [...] documented as of this encounter Care Teams Assistant [employer] Relationship Specialty Start Date End Date Jayne Bowen MD [address] [place] [address] PCP - General 09/24/18 02/20/19 documented as of this encounter
--- OUTSIDE RECORDS SUMMARY | 2024-06-27 04:57 | XMS_ITS | Encounter Summary ---
Author Organization [facility] Healthcare Address [address] [place] [id number] Care Team Providers Care Barber Stylist Name Role Phone Unavailable Primary Care Provider Unavailabl e Encounter Details Date Type Department Care Team (Latest Contact Info) Description 07/30/2013 2:36 PM DIETARY MANAGER Hospital Encounter [facility] Cindy Cintron MD [address] [facility] [address] [place] [address] Chronic hepatitis C (CMS/HCC) (HCC) Social History Tobacco Use Types [...] Procedure Name Priority Date/Time Associated Diagnosis Comments HCV GENOTYPING BY SEQUENCING Routine 07/30/2013 2:48 PM DIETARY MANAGER HIV-1 AND HIV-2 ANTIBODY, RAPID Routine 07/30/2013 2:48 PM DIETARY MANAGER HEPATITIS C VIRUS (HCV) RNA, QUALITATIVE, WILLOW Routine 07/30/2013 2:48 PM DIETARY MANAGER SMOOTH MUSCLE ANTIBODY, QUALITATIVE Routine 07/30/2013 2:48 PM DIETARY MANAGER IRON PROFILE W/ IBC Routine 07/30/2013 2 :48 PM DIETARY MANAGER CBC WITH AUTO DIFFERENTIAL Routine 07/30/2013 2:48 PM DIETARY MANAGER MASSIEL REFLEX TO QUANTITATIVE Routine 07/30/2013 2:48 PM DIETARY MANAGER HEPATITIS PANEL, ACUTE Routine 4 2:48 PM DIETARY MANAGER TSH Routine 07/30/2013 2:48 PM DIETARY MANAGER T4, FREE Routine 07/30/2013 2:48 PM DIETARY MANAGER FERRITIN Routine 07/30/2013 2:48 PM DIETARY MANAGER HEPATIC FUNCTION PANEL Routine 4 2:48 PM DIETARY MANAGER COMPREHENSIVE METABOLIC PANEL Routine 07/30/2013 2:48 PM DIETARY MANAGER DRUGS OF ABUSE SCREEN, URINE WITHOUT CONFIRMATION Routine 07/30/2013 2:37 PM DIETARY MANAGER documented in this encounter Results * HIV-1 and HIV-2 antibody, rapid (07/30/2013 2:48 PM DIETARY MANAGER) Pathologist [facility] HIV 1/2 Ab NONREACTIVE NONREACTIVE 07/30/2013 5:04 PM DIETARY MANAGER [facility] HISTORICAL RESULTS Comment: Note: ??A Non-Reactive result indicates an absence of detectable HIV-1/2 antibodies in the patient. However, it does not rule out recent exposure or past infection with HIV. 07/30/2013 2:48 PM DIETARY MANAGER 07/30/2013 3:32 PM DIETARY MANAGER us Cindy Douglas MD LAB BLOOD ORDERABLES Jasmin daniel Result [facility] HISTORICAL RESULTS * (ABNORMAL) Smooth muscle antibody, qualitative (07/30/2013 2:48 PM DIETARY MANAGER) Smooth Muscle IgG Ab 22(H) 0 - 19 Units 08/02/2013 9:26 AM DIETARY MANAGER [facility] HISTORICAL RESULTS Comment: INTERPRETIVE INFORMATION: F-Actin (Smooth Muscle) Antibody, ?? IgG by SHILPI ?19 Units or less ....... Negative ?20 - 30 Units .......... Weak Positive-Suggest repeat ? testing in two to three weeks ? with fresh specimen. ?31 Units or greater..... Positive-Suggestive of ? autoimmune hepatitis type 1 ? or chronic active hepatitis. ?? F-actin antibodies have been shown to have greater ?? sensitivity and specificity for autoimmune liver disease ?? than anti-smooth muscle antibodies. ?? Performed by [facility], ?? [address] [place] [address] ?? www.[facility], Derick Walters MD, Lab. Director ?? Smooth Muscle Ab Titer 1:40(H) <1:20 08/03/2013 4:18 [facility] HISTORICAL RESULTS Comment: INTERPRETIVE INFORMATION: ??Smooth Muscle Ab, IgG Titer ?Less than 1:20 ........ Negative - No antibody detected. ?1:20 - 1:80 ??.......... Weak Positive - Suggest repeat ?in two to three weeks with fresh ?specimen. ?1:160 or greater ...... Positive - Suggestive of ?autoimmune hepatitis or chronic ?active hepatitis. ?? Performed by [facility], ?? [address] [facility] [place] [address] ?? www.[facility], Derick Walters MD, Lab. Director ?? 07/30/2013 2:48 PM DIETARY MANAGER 07/30/2013 3:32 PM DIETARY MANAGER Result [facility] Cindy Douglas MD LAB BLOOD ORDERABLES Jasmin l Result [facility] HISTORICAL RESULTS * MASSIEL reflex to quantitative (07/30/2013 2:48 PM DIETARY MANAGER) MASSIEL Screen None Detected None Detected 08/02/2013 9:28 AM DIETARY MANAGER [facility] HISTORICAL RESULTS Comment: No antibodies to Anti-Nuclear Antibodies (MASSIEL) detected. No ?? further testing will be performed. ?? INTERPRETIVE INFORMATION: Anti-Nuclear Antibodies (MASSIEL), ?? IgG by SHILPI ?? MASSIEL specimens are screened using enzyme-linked ?? immunosorbent assay (SHILPI) methodology. All SHILPI results ?? reported as Detected are further tested by indirect ?? fluorescent assay (IFA) using HEp-2 substrate with an ?? IgG-specific conjugate. The MASSIEL SHILPI screen is designed to ?? detect antibodies against dsDNA, histone, SS-A (Ro), SS-B ?? (La), Mcwilliams, snRNP/Sm, Scl-70, Charley-1, centromere, and an ?? extract of lysed HEp-2 cells. MASSIEL SHILPI assays have been ?? reported to have lower sensitivities for antibodies ?? associated with nucleolar and speckled MASSIEL-IFA patterns. ?? Performed by [facility], ?? [address] [facility] [place] [address] ?? www.[facility], Derick Walters MD, Lab. Director ?? 07/30/2013 2:48 PM DIETARY MANAGER 07/30/2013 3:32 PM DIETARY MANAGER Result [facility] Cindy Douglas MD LAB BLOOD ORDERABLES Jasmin l Result [facility] HISTORICAL RESULTS * (ABNORMAL) CBC with auto differential (07/30/2013 2:48 PM DIETARY MANAGER) WBC 6.2 4.6 - 10.2 x10 3/ul 07/30/2013 3:38 PM DIETARY MANAGER [facility] HISTORICAL RESULTS RBC 5.07 4.11 - 5.71 x10 6/ul 07/30/2013 3:38 PM DIETARY MANAGER [facility] HISTORICAL RESULTS Hemoglobin 16.2 13.0 - 17.0 g/dl 07/30/2013 3:38 PM DIETARY MANAGER [facility] HISTORICAL RESULTS Hct 46.9 38.2 - 48.5 % 07/30/2013 3:[address] [facility] HISTORICAL RESULTS MCV 92.5 80.0 - 97.0 fl 07/30/2013 3:[address] [facility] HISTORICAL RESULTS MCH 32.0(H) 27.0 - 31.2 pg 07/30/2013 3:[address] [facility] HISTORICAL RESULTS MCHC 34.5 31.8 - 35.4 g/dl 07/30/2013 3:[address] [facility] HISTORICAL RESULTS RDW 13.3 11.6 - 14.8 % 07/30/2013 3:[address] [facility] HISTORICAL RESULTS Plt Count 227 124 - 400 x10 3/ul 07/30/2013 3:[address] [facility] HISTORICAL RESULTS MPV 9.0 7.4 - 10.4 fl 07/30/2013 3:[address] [facility] [employer] [facility] HISTORICAL RESULTS Differential Method AUTOMATED DIFF --------- -- 07/30/2013 3:[address] [facility] HISTORICAL RESULTS Neut % 32.4(L) 37.0 - 85.0 % 07/30/2013 3:[address] [facility] HISTORICAL RESULTS Immature Gran % 0.2 0.0 - 3.0 % 07/30/2013 3:[address] [facility] HISTORICAL RESULTS Lymph % 57.6(H) 5.0 - 45.0 % 07/30/2013 3:[address] [facility] HISTORICAL RESULTS Austin % 7.9 3.0 - 15.0 % 07/30/2013 3:38 PM [facility] HISTORICAL RESULTS Eos % 1.1 0.0 - 7.0 % 07/30/2013 3:38 PM [facility] HISTORICAL RESULTS Baso % 0.8 0.0 - 2.0 % 07/30/2013 3:38 PM [facility] HISTORICAL RESULTS ABSOLUTE COUNTS ABSOLUTE COUNTS --------- -- 07/30/2013 3:38 PM DIETARY MANAGER [facility] HISTORICAL RESULTS Absolute Neuts (auto) 2.0 1.7 - 8.7 x10 3/ul 07/30/2013 3:38 PM [facility] HISTORICAL RESULTS Immature Gran # 0.0 0.0 - 0.3 x10 3/ul 07/30/2013 3:38 PM [facility] HISTORICAL RESULTS Absolute Lymphs (auto) 3.6 0.2 - 4.6 x10 3/ul 07/30/2013 3:38 PM [facility] HISTORICAL RESULTS Absolute Monos (auto) 0.5 0.1 - 1.5 x10 3/ul 07/30/2013 3:38 PM [facility] HISTORICAL RESULTS Absolute Eos (auto) 0.1 0.0 - 0.7 x10 3/ul 07/30/2013 3:38 PM [facility] HISTORICAL RESULTS Absolute Basos (auto) 0.1 0.0 - 0.2 x10 3/ul 07/30/2013 3:38 PM [facility] HISTORICAL RESULTS 07/30/2013 2:48 PM DIETARY MANAGER 07/30/2013 3:32 PM [facility] Cindy Douglas MD LAB BLOOD ORDERABLES Jasmin daniel Result [facility] HISTORICAL RESULTS * (ABNORMAL) Hepatitis C Virus (HCV) RNA, Qualitative, WILLOW (07/30/2013 2:48 PM DIETARY MANAGER) [facility] HCV RNA Detected( H) Not Detected 08/02/2013 10:01 PM [facility] HISTORICAL RESULTS Comment: TEST INFORMATION: Hepatitis C Virus RNA Qualitative PCR ?? The lower limit of detection is 100 IU/mL. ?? An internal control monitors the specimen for inadequate ?? specimen extraction or for the presence of inhibitors in ?? the specimen. ??False-positive results may occur. A negative ?? result does not rule out the presence of PCR inhibitors in ?? the patient specimen or hepatitis C virus RNA ?? concentrations below the limit of detection by the assay. ?? This assay should not be used for blood donor screening, ?? associated re-entry protocols, or for screening Human Cell, ?? Tissues and Cellular Tissue-Based Products (HCT/P). ?? Performed by [facility], ?? [facility] [place] [address] ?? www.[facility], Derick Walters MD, Lab. Director ?? 07/30/2013 2:48 PM DIETARY MANAGER 07/30/2013 3:32 PM DIETARY MANAGER Cindy Douglas MD LAB BLOOD ORDERABLES Jasmin l Result [facility] HISTORICAL RESULTS * HCV GENOTYPING BY SEQUENCING (07/30/2013 2:48 PM DIETARY MANAGER) HCV genotype 1a or 1b () 08/04/2013 3:02 PM DIETARY MANAGER [facility] HISTORICAL RESULTS Comment: Cannot be further subtyped into Type 1a or Type 1b due to ?? high conservation of the 5 untranslated region of the HCV ?? genome. ??In addition, Type 6 virus may be misclassified as ?? Type 1 in some cases. ?? INTERPRETIVE INFORMATION: ??Hepatitis C Genotyping ?? Hepatitis C viral RNA is tested using reverse audiovisual aids technician ?? polymerase chain reaction (RT-PCR) to amplify a specific ?? portion of the 5' untranslated region (5' UTR) of the viral ?? genome. The amplified nucleic acid is sequenced ?? bi-directionally using dye-terminator chemistry ([employer]). ?? Sequencing data is compared to a database of characterized ?? sequences. ?? Isolates of hepatitis C virus are grouped into six major ?? genotypes (1-6). These genotypes are subtyped according to ?? sequence characteristics. Due to high conservation of the ?? 5' un-translated region of the HCV genome, this test has ?? limitations in differentiating subtype 1a from 1b. ?? Therefore, these subtypes will be reported as 1a or 1b. In ?? rare instances, Type 6 virus may be misclassified as Type 1. ?? Test developed and characteristics determined by [employer] ?? Laboratories. See Compliance Statement B: [facility] ?? Performed by [facility], ?? [address] [facility] [place] [address] ?? www.[facility], Derick Walters MD, Lab. Director ?? 07/30/2013 2:48 PM DIETARY MANAGER 07/30/2013 3:32 PM DIETARY MANAGER us Cindy Douglas MD LAB BLOOD ORDERABLES Jasmin l Result [facility] HISTORICAL RESULTS * (ABNORMAL) Hepatitis panel, acute (07/30/2013 2:48 PM DIETARY MANAGER) HepBsAg NONREACT NONREACTIVE 07/30/2013 5:07 PM DIETARY MANAGER [facility] Comment: Siemens CentaurXP using CHRISTOPHER (chemiluminescent immunoassay) technology. NONREACTIVE: IgM antibodies to Hepatitis B Surface antigen not detected. REACTIVE: IgM antibodies to Hepatitis B Surface antigen detected. Reactive results will be confirmed by neutralization testing. HBsAb (immune status) NONREACT NONREACTIVE 07/30/2013 4:07 PM DIETARY MANAGER [facility] HISTORICAL RESULTS Comment: Siemens CentaurXP using CHRISTOPHER (chemiluminescent immunoassay) technology. NONREACTIVE: IgM antibodies to Hepatitis B Surface antibody not detected. REACTIVE: IgM antibodies to Hepatitis B Surface antibody detected. Hep B core IgM NONREACT NONREACTIVE 4 5:12 PM DIETARY MANAGER [facility] HISTORICAL RESULTS Comment: Siemens CentaurXP using CHRISTOPHER (chemiluminescent immunoassay) technology. NONREACTIVE: IgM antibodies to Hepatitis B Core antigen not detected. EQUIVOCAL: IgM antibodies to Hepatitis B Core antigen may or may not be present. Obtain a ??new specimen and retest. REACTIVE: IgM antibodies to Hepatitis B Core antigen detected. Hep A IgM NONREACT NONREACTIVE 07/30/2013 5:12 PM DIETARY MANAGER [facility] HISTORICAL RESULTS Comment: Siemens CentaurXP using CHRISTOPHER (chemiluminescent immunoassay) technology. NONREACTIVE: IgM antibodies to Hepatitis A not detected. This does not exclude possibility of exposure to Hepatitis A or early acute infection. EQUIVOCAL:IgM antibodies to Hepatitis A may or may not be present. Suggest recollection and retest. REACTIVE: Antibodies to Hepatitis A detected. Hep C Ab REACTIVE(H) NONREACTIVE 07/30/2013 5:12 PM DIETARY MANAGER [facility] HISTORICAL RESULTS Comment: Siemens eFuelDepotaurXP using CHRISTOPHER (chemiluminescent immunoassay) technology. NONREACTIVE: Antibodies [...] Hepatitis C detected. Hepatitis C Virus Note 07/30/2013 5:12 PM DIETARY MANAGER [facility] HISTORICAL RESULTS Comment:NO CONFIRMATION TEST ING REQUIRED DUE TO HIGH REACTIVITY. 07/30/2013 2:48 PM DIETARY MANAGER 07/30/2013 3:32 PM DIETARY MANAGER Result [facility] Cindy Douglas MD LAB MICROBIOLOGY - GENERA L ORDERABLES Final Result Performing Organization Address [facility] Co de Phone Number [facility] HISTORICAL RESULTS * T4, free (07/30/2013 2:48 PM DIETARY MANAGER) Thyroxine (T4) 5.8 4.5 - 11.7 ug/dL 07/30/2013 5:23 PM DIETARY MANAGER [facility] HISTORICAL RESULTS 07/30/2013 2:48 PM DIETARY MANAGER 07/30/2013 3:32 PM DIETARY MANAGER Result [facility] Cindy Douglas MD LAB BLOOD ORDERABLES Jasmin l Result Performing Organization Address City/[facility]/ZIP Co de Phone Number [facility] HISTORICAL RESULTS * TSH (07/30/2013 2:48 PM DIETARY MANAGER) TSH 0.96 0.27 - 4.20 uIU/mL 07/30/2013 4:03 PM DIETARY MANAGER [facility] HISTORICAL RESULTS 07/30/2013 2:48 PM DIETARY MANAGER 07/30/2013 3:32 PM DIETARY MANAGER Cindy Douglas MD LAB BLOOD ORDERABLES Jasmin l Result [facility] HISTORICAL RESULTS * Ferritin (07/30/2013 2:48 PM DIETARY MANAGER) Ferritin 354.2 30.0 - 400.0 ng/mL 07/30/2013 4:12 PM DIETARY MANAGER [facility] HISTORICAL RESULTS 07/30/2013 2:48 PM DIETARY MANAGER 07/30/2013 3:32 PM DIETARY MANAGER Cindy Douglas MD LAB BLOOD ORDERABLES Jasmin l Result Performing Organization Address [facility] Co de Phone Number [facility] HISTORICAL RESULTS * Iron profile w/ IBC (07/30/2013 2:48 PM DIETARY MANAGER) Iron 153 59 - 158 ug/dL 07/30/2013 3:57 PM DIETARY MANAGER [facility] HISTORICAL RESULTS Comment:Fasting specimen pre ferred TIBC 357 228 - 428 ug/dL 07/30/2013 3:57 PM DIETARY MANAGER [facility] HISTORICAL RESULTS Transferrin % Sat 43 20 - 50 % 07/30/2013 3:57 PM DIETARY MANAGER [facility] HISTORICAL RESULTS 07/30/2013 2:48 PM DIETARY MANAGER 07/30/2013 3:32 PM DIETARY MANAGER Cindy Douglas MD LAB BLOOD ORDERABLES Jasmin l Result Performing Organization Address [facility] Co de Phone Number [facility] HISTORICAL RESULTS * Hepatic function panel (07/30/2013 2:48 PM DIETARY MANAGER) Direct Bilirubin < 0.20 0.00 - 0.25 mg/dL 07/30/2013 3:57 PM DIETARY MANAGER [facility] HISTORICAL RESULTS 07/30/2013 2:48 PM DIETARY MANAGER 07/30/2013 3:32 PM DIETARY MANAGER Cindy Douglas MD LAB BLOOD ORDERABLES Jasmin l Result [facility] HISTORICAL RESULTS * (ABNORMAL) Comprehensive metabolic panel (07/30/2013 2:48 PM DIETARY MANAGER) [facility] Sodium 138 135 - 145 mmol/L 07/30/2013 3:57 PM [facility] HISTORICAL RESULTS Potassium 3.5 3.3 - 5.1 mmol/L 07/30/2013 3:57 PM [facility] HISTORICAL RESULTS Chloride 102 96 - 108 mmol/L 07/30/2013 3:57 PM [facility] HISTORICAL RESULTS Carbon Dioxide 22 22 - 32 mmol/L 07/30/2013 3:57 PM [facility] HISTORICAL RESULTS Anion Gap 14 07/30/2013 3:57 PM [facility] HISTORICAL RESULTS Glucose 157(H) 70 - 110 mg/dL 07/30/2013 3:57 PM [facility] HISTORICAL RESULTS BUN 7 6 - 20 mg/dL 07/30/2013 3:57 PM [facility] HISTORICAL RESULTS Creatinine 0.7 0.5 - 1.3 mg/dL 07/30/2013 3:57 PM [facility] HISTORICAL RESULTS Kidney Disease Stage > 90 mL/MIN 07/30/2013 3:57 PM [facility] HISTORICAL RESULTS Comment: NOTE; ??The GFR is an estimated value using the creatinine, sex, age, and race of the patient. THE ESTIMATED GFR IS VALIDATED FOR AGES 18-70 YEARS STAGE ?mL/Min ?DESCRIPTION ??1 ?90 mL/min or more ?Normal or elevated GFR ??2 ? 60-89 mL/min ?Mildly decreased GFR ??3 ? 30-59 mL/min ?Moderately decreased GFR ??4 ? 15-29 mL/min ?Severely decreased GFR ??5 ? <15 mL/min ? Kidney failure or on dialysis @ Calcium 9.4 8.6 - 10.2 mg/dL 07/30/2013 3:57 PM [facility] HISTORICAL RESULTS Comment: Reporting units changed on 04-03-2013 from mmol/L to mg/dL. Compare to previous results with caution. Total Protein 9.2(H) 6.4 - 8.4 g/dL 07/30/2013 3:57 PM DIETARY MANAGER [facility] HISTORICAL RESULTS Albumin 4.6 3.5 - 5.2 g/dL 07/30/2013 3:57 PM [facility] HISTORICAL RESULTS Globulin 4.6(H) 2.3 - 3.5 gm/dL 07/30/2013 3:57 PM [facility] HISTORICAL RESULTS Albumin/Globulin Ratio 1.0(L) 1.1 - 1.8 07/30/2013 3:57 PM [facility] HISTORICAL RESULTS Total Bilirubin 0.4 0.0 - 1.2 mg/dL 07/30/2013 3:57 PM [facility] HISTORICAL RESULTS AST 110(H) 0 - 38 U/L 07/30/2013 3:57 PM [facility] HISTORICAL RESULTS ALT 110(H) 0 - 41 U/L 07/30/2013 3:57 PM [facility] HISTORICAL RESULTS Alkaline Phosphatase 96 40 - 129 U/L 07/30/2013 3:57 PM [facility] HISTORICAL RESULTS 07/30/2013 2:48 PM DIETARY MANAGER 07/30/2013 3:32 PM DIETARY MANAGER Cindy Douglas MD LAB BLOOD ORDERABLES Jasmin l Result [facility] HISTORICAL RESULTS * (ABNORMAL) Drug Screen, Urine (07/30/2013 2:37 PM DIETARY MANAGER) Ur Amphetamine Screen POSITIVE(H) NEGATIVE 07/30/2013 4:12 PM [facility] HISTORICAL RESULTS Comment: RESULT CALLED at: 1607 07/30/13 by: [id number] to: []Jessica at Dr Douglas's office by Neville Benjamin ?? CONFIRMATION on Positive result requested:[No]Cutoff Limit: ??1000 ng/mL Note: ??Positive results from this drug screen are unconfirmed. ??Unconfirmed screening results should not be used for non-medical purposes. Ur Barbiturates Screen NEGATIVE NEGATIVE 07/30/2013 4:04 PM [facility] HISTORICAL RESULTS Comment:Cutoff limit: 200 ng /mL U Benzodiazepines Scrn POSITIVE(H) NEGATIVE 07/30/2013 4:12 PM [facility] HISTORICAL RESULTS Comment: RESULT CALLED at: 1604 07/30/13 by: [id number] to: []Jessica at Dr Douglas's office by Neville Benjamin ?? CONFIRMATION on Positive result requested:[No]Cutoff limit: 300 ng/mL U Cannabinoids Screen POSITIVE(H) NEGATIVE 07/30/2013 4:12 PM [facility] HISTORICAL RESULTS Comment: RESULT CALLED at: 1604 07/30/13 by: [id number] to: []Jessica at Dr Douglas's office by Neville Benjamin ?? CONFIRMATION on Positive result requested:[No]Cutoff Limit: 50 ng/mL U Cocaine Metab Screen NEGATIVE NEGATIVE 07/30/2013 4:04 PM [facility] HISTORICAL RESULTS Comment:Cutoff limit: 300 ng /mL Urine Opiates Screen NEGATIVE NEGATIVE 07/30/2013 4:04 PM [facility] HISTORICAL RESULTS Comment:Cutoff Limit: 300 ng /mL Urine Creatinine/GERMAN 379.0 mg/dL 07/30/2013 4:04 PM [facility] HISTORICAL RESULTS Comment:If Creatinine is < 4 0 mg/dL, recollection is suggested. 07/30/2013 2:37 PM DIETARY MANAGER 07/30/2013 3:39 PM DIETARY MANAGER Narrative [facility] HISTORICAL RESULTS - 07/30/2013 4:04 PM DIETARY MANAGER us Cindy Douglas MD LAB URINE ORDERABLES Jasmin l Result [facility] HISTORICAL RESULTS documented in this encounter Visit Diagnoses Diagnosis Chronic hepatitis C (CMS/HCC) (HCC) Chronic hepatitis C without mention of hepatic coma documented in this encounter Additional Health Concerns Infection Onset Date Last Indicated Resolved Time 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
--- OUTSIDE RECORDS SUMMARY | 2024-06-27 04:57 | XMS_ITS | Encounter Summary ---
Author Organization [facility] Healthcare Address [address] [place] [address] Care Team Providers Care Health Information Provider Name Role Phone Unavailable Primary Care Provider Unavailabl e Encounter Details Date Type Department Care Team (Latest Contact Info) Description 09/21/2017 12:00 PM CDT - 09/22/2017 1:15 PM CDT Hospital Encounter [facility] Anil Mccord MD [address] [place] [address] Angiodysplasia of stomach and duodenum with bleeding; Essential (primary) hypertension; Alcoholic cirrhosis of liver without ascites (CMS/HCC); Anxiety disorder; Bipolar disorder (CMS/HCC); Personal history of other infectious and parasitic diseases; History of methicillin resistant Staphylococcus aureus infection; Nicotine dependence, uncomplicated; Family history of malignant neoplasm of digestive organ; Family history of diabetes mellitus; Other problems related to lifestyle; Gastro-esophageal reflux disease without esophagitis; Other intervertebral disc degeneration, lumbar region; Cannabis use, uncomplicated; Cocaine use, uncomplicated; Tachycardia; Anemia in other chronic diseases classified elsewhere; Procedure and treatment not carried out due to patient leaving prior to being seen by health care provider; Uncomplicated alcohol dependence (CMS/HCC) Social History Tobacco Use Types Packs/Day Years Used Date Smoking Tobacco: Never Assessed Sex and Gender Information Value Date Recorded Sex Assigned at Not on file Legal Sex Male 8:48 AM CDT Gender Identity Not on file Sexual Orientation Not on file documented as of this encounter Last Filed Vital Signs Vital Sign Reading Time Taken Comments Blood Pressure 95/50 09/21/2017 8:01 PM CDT Pulse 80 09/21/2017 8:01 PM CDT Temperature 37 ??C (98.6 ??F) 09/21/2017 8:01 PM CDT Respiratory Rate - - Oxygen Saturation 98% 09/21/2017 8:01 PM CDT Inhaled Oxygen Concentration - - Weight 82.5 kg (181 lb 12.8 oz) 09/21/2017 8:01 PM CDT Height 182.9 cm (6') 09/21/2017 8:01 PM CDT Body Mass Index 24.66 09/21/2017 8:01 PM CDT documented in this encounter Plan of Treatment Not on file documented as of this encounter Procedures Procedure Name Priority Date/Time Associated Diagnosis Comments CBC WITH AUTO DIFFERENTIAL Routine 09/22/2017 4:39 AM CDT HEPATITIS PANEL, ACUTE Routine 8 4:39 AM CDT COMPREHENSIVE METABOLIC PANEL Routine 09/22/2017 4:39 AM CDT HEMOGLOBIN AND HEMATOCRIT Routine 09/21/2017 10:41 PM CDT PROTIME-INR Routine 09/21/2017 3:44 PM CDT LIPASE Routine 09/21/2017 3:43 PM CDT HEMOGLOBIN A1C Routine 09/21/2017 3:43 PM CDT AMYLASE Routine 09/21/2017 3:43 PM CDT OCCULT BLOOD, FECAL (FIT) Routine 09/21/2017 11:20 AM CDT CBC WITH AUTO DIFFERENTIAL Routine 09/21/2017 10:24 AM CDT PHOSPHORUS Routine 09/21/2017 10:24 AM CDT MAGNESIUM Routine 09/21/2017 10:24 AM CDT LIPASE Routine 09/21/2017 10:24 AM CDT COMPREHENSIVE METABOLIC PANEL Routine 09/21/2017 10:24 AM CDT documented in this encounter Results * (ABNORMAL) Comprehensive metabolic panel (09/22/2017 4:39 AM CDT) Sodium 137 135 - 145 mmol/L 09/22/2017 5:28 AM T [facility] HISTORICAL RESULTS Potassium 3.6 3.3 - 5.1 mmol/L 09/22/2017 5:28 AM [facility] [employer] [facility] HISTORICAL RESULTS Chloride 101 96 - 108 mmol/L 09/22/2017 5:[address] [facility] H[facility]OR[facility] RESULTS Carbon Dioxide 24 22 - 32 mmol/L 09/22/2017 5:[address] [facility] HISTORICAL RESULTS Anion Gap 12 7 - 16 09/22/2017 5:28 AM [facility] [employer] [facility] HISTORICAL RESULTS Glucose 93 70 - 100 mg/dL 09/22/2017 5:[address] [facility] [facility] HISTORICAL RESULTS BUN 17 6 - 20 mg/dL 09/22/2017 5:[address] [facility] HISTORICAL RESULTS Creatinine 0.7 0.5 - 1.3 mg/dL 09/22/2017 5:28 AM [facility] [employer] [facility] HISTORICAL RESULTS Comment: NOTE: Estimated GFR (Cockroft-Gault) will NOT be calculated unless patient Height and Weight were entered. Also, Kidney Disease Stage (GFR) and Estimated GFR (Cockroft-Gault) will NOT be calculated if Creatinine result is <0.2. Kidney Disease Stage > 90 mL/MIN 09/22/2017 5:[address] [facility] HISTORICAL RESULTS Comment: NOTE; ??The GFR is [...] or on dialysis @ Est GFR (Cockcroft-G) 150 ml/MIN Comment: Estimated GFR(Cockroft-Gault)is used to calculate patient medication dosage Calcium 8.0(L) 8.6 - 10.0 mg/dL Total Protein 6.0(L) 6.4 - 8.3 g/dL Albumin 3.0(L) 3.5 - 5.2 g/dL Globulin 3.0 2.3 - 3.5 gm/dL Albumin/Globulin Ratio 1.0(L) 1.1 - 1.8 Total Bilirubin 1.2 0.0 - 1.2 mg/dL AST 58(H) 0 - 40 U/L ALT 28 0 - 41 U/L Alkaline Phosphatase 56 40 - 129 U/L 09/22/2017 4:39 AM CDT 09/22/2017 4:58 AM CDT us Annmarie Willingham MD LAB BLOOD ORDERABLES Final Result [facility] HISTORICAL RESULTS * (ABNORMAL) CBC with auto differential (09/22/2017 4:39 AM CDT) WBC 4.6 3.5 - 10.5 x10 3/ul 09/22/2017 5:08 AM CDT [facility] HISTORICAL RESULTS Comment:Results reviewed RBC 2.56(L) 4.11 - 5.71 x10 6/ul 09/22/2017 5:06 AM CDT [facility] HISTORICAL RESULTS Hemoglobin 8.9(L) 13.0 - 17.0 g/dL 09/22/2017 5:02 AM CDT [facility] HISTORICAL RESULTS Hct 25.6(L) 38.2 - 48.5 % 09/22/2017 5:02 AM CDT [facility] HISTORICAL RESULTS MCV 100.0(H) 80.0 - 97.0 fl 09/22/2017 5:02 AM CDT [facility] HISTORICAL RESULTS MCH 34.8(H) 27.0 - 31.2 pg 09/22/2017 5:02 AM CDT [facility] HISTORICAL RESULTS MCHC 34.8 31.8 - 35.4 g/dl 09/22/2017 5:02 AM CDT [facility] HISTORICAL RESULTS RDW 12.6 11.6 - 14.8 % 09/22/2017 5:02 AM CDT [facility] HISTORICAL RESULTS Plt Count 91(L) 150 - 450 X10 3/ul 09/22/2017 5:08 AM CDT [facility] HISTORICAL RESULTS Comment:Results reviewed MPV 10.0 7.4 - 10.4 fl 09/22/2017 5:02 AM CDT [facility] HISTORICAL RESULTS Neut % 53.2 37.0 - 85.0 % 09/22/2017 5:02 AM CDT [facility] HISTORICAL RESULTS Immature Gran % 0.2 0.0 - 3.0 % 09/22/2017 5:02 AM CDT [facility] HISTORICAL RESULTS Lymph % 32.0 5.0 - 45.0 % 09/22/2017 5:02 AM CDT [facility] HISTORICAL RESULTS [place] % 12.3 3.0 - 15.0 % 09/22/2017 5:02 AM CDT [facility] HISTORICAL RESULTS Eos % 1.7 0.0 - 7.0 % 09/22/2017 5:02 AM T [facility] HISTORICAL RESULTS Baso % 0.6 0.0 - 2.0 % 09/22/2017 5:02 AM T [facility] HISTORICAL RESULTS Absolute Neuts (auto) 2.5 1.7 - 8.7 x10 3/ul 09/22/2017 5:02 AM T [facility] HISTORICAL RESULTS Immature Gran # 0.0 0.0 - 0.3 x10 3/ul 09/22/2017 5:02 AM T [facility] HISTORICAL RESULTS Absolute Lymphs (auto) 1.5 0.2 - 4.6 x10 3/ul Absolute Monos (auto) 0.6 0.1 - 1.5 x10 3/ul Absolute Eos (auto) 0.1 0.0 - 0.7 x10 3/ul Absolute Basos (auto) 0.0 0.0 - 0.2 x10 3/ul Nucleat RBC Rel Count 0.0 0 - 3 #/100WBC Absolute Nucleated RBC 0.00 x10 3/ul Absolute Neutrophils 2500 200 - 8000 /ul 09/22/2017 4:39 AM CDT 09/22/2017 4:58 AM CDT us Annmarie Willingham MD LAB BLOOD ORDERABLES Final Result [facility] HISTORICAL RESULTS * (ABNORMAL) Hepatitis panel, acute (09/22/2017 4:39 AM CDT) HepBsAg NONREACT NONREACTIVE Comment: [employer] CentaurXP using CHRISTOPHER (chemiluminescent immunoassay) technology. NONREACTIVE: IgM antibodies to Hepatitis B Surface antigen not detected. REACTIVE: IgM antibodies to Hepatitis B Surface antigen detected. Reactive results will be confirmed by neutralization testing. HBsAb qn 5.34 mIU/mL Comment: Siemens CentaurXP using CHRISTOPHER (chemiluminescent immunoassay) technology. 9.99 IU/L or less.....NONREACTIVE: IgM antibodies to ? Hepatitis B Surface antibody are not detected. 10.00 IU/L or greater..REACTIVE: IgM antibodies to Hepatitis B Surface antibody are detected. Hep B core IgM NONREACT NONREACTIVE 8 10:22 AM [facility] HISTORICAL RESULTS Comment: Siemens CentaurXP using CHRISTOPHER [...] A detected. Hep C Ab REACTIVE(H) NONREACTIVE 09/22/2017 10:[address] [facility] HISTORICAL RESULTS Comment: Siemens CentaurXP using CHRISTOPHER [...] Hepatitis C detected. Hepatitis C Virus Note 09/22/2017 10:[address] [facility] HISTORICAL RESULTS Comment: NO CONFIRMATION TESTING REQUIRED DUE TO HIGH REACTIVITY. ?? NO CONFIRMATION TESTING REQUIRED DUE TO HIGH REACTIVITY. 09/22/2017 4:39 AM CDT 09/22/2017 4:58 AM CDT Result [facility] Annmarie Willingham MD LAB MICROBIOLOGY - GENERAL ORDERABLES Final Result Performing Organization Address [facility] Co de Phone Number [facility] HISTORICAL RESULTS * (ABNORMAL) Hemoglobin and hematocrit (09/21/2017 10:41 PM CDT) Hemoglobin 9.0(L) 13.0 - 17.0 g/dL 09/21/2017 10:51 PM CDT [facility] HISTORICAL RESULTS Hct 25.9(L) 38.2 - 48.5 % 09/21/2017 10:46 PM CDT [facility] HISTORICAL RESULTS 09/21/2017 10:4 1 PM CDT 09/21/2017 10:43 PM CDT Result [facility] Henrietta Carvalho NP LAB BLOOD ORDERABLES Final Result Performing Organization Address [facility] de Phone Number [facility] HISTORICAL RESULTS * (ABNORMAL) Protime-INR (09/21/2017 3:44 PM CDT) PT 17.4(H) 11.8 - 14.5 SECONDS 09/21/2017 4:02 PM CDT [facility] HISTORICAL RESULTS INR 1.42 09/21/2017 4:02 PM CDT [facility] HISTORICAL RESULTS Comment: Recommended Therapeutic range for Oral Anticoagulant Therapy No anti-coagulation therapy ? Normal Range: ?0.8-1.4 Anti-coagulation therapy ? Low intensity therapy ?2.0-3.0 ? High intensity therapy ?? 2.5-3.5 Critical Value ? Greater than or equal to 5.0 Patients should be monitored for serious bleeding. ?? 09/21/2017 3:44 PM CDT 09/21/2017 3:52 PM CDT Annmarie Willingham MD LAB BLOOD ORDERABLES Final Result Performing Organization Address [facility] de Phone Number [facility] HISTORICAL RESULTS * Lipase (09/21/2017 3:43 PM CDT) Pathologist [facility] Lipase 25 13 - 60 U/L 09/21/2017 4:19 PM CDT [facility] HISTORICAL RESULTS 09/21/2017 3:43 PM CDT 09/21/2017 3:52 PM CDT Annmarie Willingham MD LAB BLOOD ORDERABLES Final Result Performing Organization Address [facility] de Phone Number [facility] HISTORICAL RESULTS * Amylase (09/21/2017 3:43 PM CDT) Pathologist [facility] Amylase 37 28 - 100 U/L 09/21/2017 4:19 PM CDT [facility] HISTORICAL RESULTS 09/21/2017 3:43 PM CDT 09/21/2017 3:52 PM CDT Annmarie Willingham MD LAB BLOOD ORDERABLES Final Result Performing Organization Address [facility] de Phone Number [facility] HISTORICAL RESULTS * Hemoglobin A1c (09/21/2017 3:43 PM CDT) Pathologist [facility] Hemoglobin A1c % 5.1 4.0 - 5.6 % 09/21/2017 4:35 PM CDT [facility] HISTORICAL RESULTS Comment: ADA 2016 GUIDELINES: ??Initial Diagnostic Criteria ? HbA1c Result: ?Interpretation: ?<5.7% ? Normal ?5.7-6.4% ?At risk for diabetes mellitus ?>=6.5% ?Consistent with diabetes mellitus ??Diabetes monitoring ? Target value (ADA Recommended) ?? <7% 09/21/2017 3:43 PM CDT 09/21/2017 3:52 PM CDT Annmarie Willinhgam MD LAB BLOOD ORDERABLES Final Result Performing Organization Address [facility] Phone Number [facility] HISTORICAL RESULTS * Occult blood, fecal non neoplasm screening (09/21/2017 11:20 AM CDT) Stool Occult Blood POSITIVE NEGATIVE 09/21/2017 11:23 AM CDT [facility] HISTORICAL RESULTS 09/21/2017 11:2 0 AM CDT 09/21/2017 11:20 AM CDT Narrative [facility] HISTORICAL RESULTS - 09/21/2017 11:23 AM CDT Collected By pb Goyo Augustin [employer] [facility] BODY FLUIDS AND STOOL S ORDERABLES Final Result Performing Organization Address [facility] HISTORICAL RESULTS * Phosphorus (09/21/2017 10:24 AM CDT) Phosphorus 2.8 2.5 - 4.5 mg/dL 09/21/2017 2:35 PM CDT [facility] HISTORICAL RESULTS 09/21/2017 10:2 4 AM CDT 09/21/2017 10:31 AM CDT Goyo Augustin NP LAB BLOOD ORDERABLES Jasmin l Result Performing Organization Address [facility] Number [facility] HISTORICAL RESULTS * Magnesium (09/21/2017 10:24 AM CDT) Magnesium 2.1 1.6 - 2.6 mg/dL 09/21/2017 2:35 PM CDT [facility] HISTORICAL RESULTS Comment:Magnesium sulfate th erapy: 3.0-9.1 mg/dL 09/21/2017 10:2 4 AM CDT 09/21/2017 10:31 AM CDT [employer] August[employer] LAB BLOOD ORDERABLES Jasmin l Result Performing Organization Address [facility] de Phone Number [facility] HISTORICAL RESULTS * Lipase (09/21/2017 10:24 AM CDT) Lipase 33 13 - 60 U/L 09/21/2017 10:2 4 AM CDT 09/21/2017 10:31 AM CDT [employer] August[employer] LAB BLOOD ORDERABLES Jasmin l Result [facility] HISTORICAL RESULTS * (ABNORMAL) Comprehensive metabolic panel (09/21/2017 10:24 AM CDT) Sodium 136 135 - 145 mmol/L Potassium 3.5 3.3 - 5.1 mmol/L Chloride 98 96 - 108 mmol/L Carbon Dioxide 23 22 - 32 mmol/L Anion Gap 15 7 - 16 Glucose 122(H) 70 - 100 mg/dL BUN 22(H) 6 - 20 mg/dL Creatinine 0.6 0.5 [...] dialysis @ Est GFR (Cockcroft-G) 174 ml/MIN 09/21/2017 10:[address] [facility] HISTORICAL RESULTS Comment: Estimated GFR(Cockroft-Gault)is used to calculate patient medication dosage Calcium 9.6 8.6 - 10.0 mg/dL 09/21/2017 10:53 AM [facility] [employer] [facility] HISTORICAL RESULTS Total Protein 8.3 6.4 - 8.3 g/dL 09/21/2017 10:[address] [facility] HISTORICAL RESULTS Albumin 4.2 3.5 - 5.2 g/dL 09/21/2017 10:[address] [facility] HISTORICAL RESULTS Globulin 4.1(H) 2.3 - 3.5 gm/dL 09/21/2017 10:[address] [facility] HISTORICAL RESULTS Albumin/Globulin Ratio 1.0(L) 1.1 - 1.8 09/21/2017 10:53 AM [facility] [employer] [facility] HISTORICAL RESULTS Total Bilirubin 1.4(H) 0.0 - 1.2 mg/dL 09/21/2017 10:53 AM [facility] [employer] [facility] HISTORICAL RESULTS AST 72(H) 0 - 40 U/L 09/21/2017 10:[address] [facility] HISTORICAL RESULTS ALT 43(H) 0 - 41 U/L 09/21/2017 10:[address] [facility] HISTORICAL RESULTS Alkaline Phosphatase 80 40 - 129 U/L 09/21/2017 10:53 AM CDT [facility] HISTORICAL RESULTS 09/21/2017 10:2 4 AM CDT 09/21/2017 10:31 AM CDT [employer] LAB BLOOD ORDERABLES Jasmin l Result [facility] HISTORICAL RESULTS * (ABNORMAL) CBC with auto differential (09/21/2017 10:24 AM CDT) WBC 7.2 3.5 - 10.5 x10 3/ul 09/21/2017 10:34 AM T [facility] HISTORICAL RESULTS RBC 3.46(L) 4.11 - 5.71 x10 6/ul 09/21/2017 10:34 AM T [facility] HISTORICAL RESULTS Hemoglobin 11.9(L) 13.0 - 17.0 g/dL 09/21/2017 10:34 AM T [facility] HISTORICAL RESULTS Hct 34.5(L) 38.2 - 48.5 % 09/21/2017 10:34 AM T [facility] HISTORICAL RESULTS MCV 99.7(H) 80.0 - 97.0 fl 09/21/2017 10:[address] [facility] HISTORICAL RESULTS MCH 34.4(H) 27.0 - 31.2 pg 09/21/2017 10:34 AM T [facility] HISTORICAL RESULTS MCHC 34.5 31.8 - 35.4 g/dl 09/21/2017 10:34 AM T [facility] HISTORICAL RESULTS RDW 12.7 11.6 - 14.8 % 09/21/2017 10:34 AM T [facility] HISTORICAL RESULTS Plt Count 152 150 - 450 X10 3/ul 09/21/2017 10:[address] [facility] [facility] HISTORICAL RESULTS MPV 10.1 7.4 - 10.4 fl 09/21/2017 10:34 AM T [facility] HISTORICAL RESULTS Neut % 64.4 37.0 - 85.0 % 09/21/2017 10:[address] [facility] [facility] HISTORICAL RESULTS Immature Gran % 0.3 0.0 - 3.0 % Lymph % 21.7 5.0 - 45.0 % [place] % 12.0 3.0 - 15.0 % Eos % 0.6 0.0 - 7.0 % Baso % 1.0 0.0 - 2.0 % Absolute Neuts (auto) 4.6 1.7 - 8.7 x10 3/ul Immature Gran # 0.0 0.0 - 0.3 x10 3/ul Absolute Lymphs (auto) 1.6 0.2 - 4.6 x10 3/ul Absolute Monos (auto) 0.9 0.1 - 1.5 x10 3/ul Absolute Eos (auto) 0.0 0.0 - 0.7 x10 3/ul Absolute Basos (auto) 0.1 0.0 - 0.2 x10 3/ul Nucleat RBC Rel Count 0.0 0 - 3 #/100WBC Absolute Nucleated RBC 0.00 x10 3/ul Absolute Neutrophils 4600 200 - 8000 /ul 09/21/2017 10:2 4 AM CDT 09/21/2017 10:31 AM CDT us Goyo Augustin NP LAB BLOOD ORDERABLES Jasmin l Result [facility] HISTORICAL RESULTS documented in this encounter Visit Diagnoses Diagnosis Angiodysplasia of stomach and duodenum with bleeding Angiodysplasia of stomach and duodenum with hemorrhage Essential (primary) hypertension Unspecified essential hypertension Alcoholic cirrhosis of liver without ascites (CMS/HCC) (HCC) Anxiety disorder Anxiety state, unspecified Bipolar disorder (HCC) Bipolar disorder, unspecified Personal history of other infectious and parasitic diseases History of methicillin resistant Staphylococcus aureus infection Nicotine dependence, uncomplicated Family history of malignant neoplasm of digestive organ Family history of malignant neoplasm of gastrointestinal tract Family history of diabetes mellitus Other problems related to lifestyle Gastro-esophageal reflux disease without esophagitis Other intervertebral disc degeneration, lumbar region Cannabis use, uncomplicated Cocaine use, uncomplicated Tachycardia Unspecified tachycardia Anemia in other chronic diseases classified elsewhere Procedure and treatment not carried out due to patient leaving prior to being seen by health care provider Uncomplicated alcohol dependence (CMS/HCC) (HCC) documented in this encounter Additional Health Concerns Infection Onset Date Last Indicated Resolved Time 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
--- OUTSIDE RECORDS SUMMARY | 2024-06-27 04:57 | XMS_ITS | Encounter Summary ---
Author Organization [facility] Healthcare Address [address] [place] [address] Care Team Providers Care Supervisor Extruding Department Name Role Phone Unavailable Primary Care Provider Unavailabl e Encounter Details Date Type Department Care Team (Latest Contact Info) Description 12/16/2015 9:14 AM CDT Hospital Encounter [facility] OP Cindy Douglas MD [address] [facility] [address] [place] [address] Cirrhosis of liver (CMS/HCC) Social History Tobacco Use Types Packs/Day [...] Name Priority Date/Time Associated Diagnosis Comments US RUQ Routine 12/16/2015 9:17 AM CDT documented in this encounter Results * US RUQ (12/16/2015 9:17 AM CDT) Anatomical Region Laterality Modality Abdomen N/A Ultrasound 12/16/2015 9:17 AM CDT Impressions 12/16/2015 12:32 PM CDT ?? Diffuse fatty infiltration of the liver. ??Otherwise essentially unremarkable examination. THIS IS AN ELECTRONICALLY VERIFIED REPORT 12/16/2015 12:29 PM: ??Josep Nassar M.D. ?? Josep Nassar M.D. AT:at 12:29 PM 12:29 PM BM [EOD] Narrative 12/16/2015 12:32 PM CDT EXAMINATION: ??ULTRASOUND OF THE ABDOMEN, LIMITED DATE: ??12/16/2015 COMPARISON: ??Ultrasound 04/11/2013 HISTORY: ??Cirrhosis for 4-5 years TECHNIQUE: ??Multiple sonographic images of the abdomen were obtained. FINDINGS: ?? The pancreatic head and body demonstrate unremarkable parenchymal echotexture. Views of the tail are limited by surrounding bowel gas. The liver demonstrates diffusely increased parenchymal echotexture without evidence of focal mass or intrahepatic biliary ductal dilation. The gallbladder demonstrates an unremarkable sonographic appearance without evidence of wall thickening or pericholecystic fluid. ??No filling defects to suggest cholelithiasis are present. The sonographic Anders's sign is negative. The common duct measures 0.3 cm, within normal limits. The right kidney measures 12 cm in craniocaudal dimension and shows unremarkable parenchymal echotexture. ??There is no evidence of focal mass or hydronephrosis. Procedure Note Provider, MD Crista - 11/02/2020 EXAMINATION: ULTRASOUND OF THE ABDOMEN, LIMITED DATE: 12/16/2015 COMPARISON: Ultrasound 04/11/2013 HISTORY: Cirrhosis for 4-5 years TECHNIQUE: Multiple sonographic images of the abdomen were obtained. FINDINGS: The pancreatic head and body demonstrate unremarkable parenchymalechotexture. Views of the tail are limited by surrounding bowel gas. The liver demonstrates diffusely increased parenchymal echotexture without evidence of focal mass or intrahepatic biliary ductal dilation. The gallbladder demonstrates an unremarkable sonographic appearancewithout evidence of wall thickening or pericholecystic fluid. No filling defectsto suggest cholelithiasis are present. The sonographic Anders's sign isnegative. The common duct measures 0.3 cm, within normal limits. The right kidney measures 12 cm in craniocaudal dimension and shows unremarkable parenchymal echotexture. There is no evidence of focal massor hydronephrosis. IMPRESSION: Diffuse fatty infiltration of the liver. Otherwise essentiallyunremarkable examination. THIS IS AN ELECTRONICALLY VERIFIED REPORT 12/16/2015 12:29 PM: Josep Nassar M.D. Josep Nassar M.D. AT:at 12:29 PM 12:29 PM [facility] [EOD] us Cindy Douglas MD IMG US PROCEDURES Final R esult documented in this encounter Visit Diagnoses Diagnosis Cirrhosis of liver (HCC) Cirrhosis of liver without mention of alcohol documented in this encounter Additional Health Concerns Infection Onset Date Last Indicated Resolved Time 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
--- OUTSIDE RECORDS SUMMARY | 2024-06-27 04:57 | XMS_ITS | Encounter Summary ---
Author Organization [facility] Healthcare Address [address] [place] [address] Care Team Providers Care Press Tender Name Role Phone Unavailable Primary Care Provider Unavailabl e Encounter Details Date Type Department Care Team (Latest Contact Info) Description 04/11/2013 9:50 AM CDT Hospital Encounter [facility] Cindy Douglas MD [address] [facility] [address] [place] [address] Chronic hepatitis C (CMS/HCC) (HCC); Need for prophylactic vaccination and inoculation against viral hepatitis; Encounter for long-term (current) use of other medications Social History Tobacco Use Types Packs/Day Years [...] Procedure Name Priority Date/Time Associated Diagnosis Comments HIV-1 AND HIV-2 ANTIBODY, RAPID Routine 04/11/2013 10:56 AM CDT HCV GENOTYPING BY SEQUENCING Routine 04/11/2013 10:55 AM CDT HEPATITIS C VIRUS (HCV) RNA, QUALITATIVE, WILLOW Routine 04/11/2013 10:55 AM CDT IRON PROFILE W/ IBC Routine 04/11/2013 1 0:55 AM CDT CBC WITH AUTO DIFFERENTIAL Routine 04/11/2013 10:55 AM CDT MASSIEL REFLEX TO QUANTITATIVE Routine 04/11/2013 10:55 AM CDT HCG, (BETA) TUMOR MARKER Routine 04/11/2013 10:55 AM CDT HEPATITIS PANEL, ACUTE Routine 3 10:55 AM CDT PROTIME-INR Routine 04/11/2013 10:55 AM CDT URIC ACID Routine 04/11/2013 10:55 AM CDT TSH Routine 04/11/2013 10:55 AM CDT FERRITIN Routine 04/11/2013 10:55 AM CDT HEPATIC FUNCTION PANEL Routine 3 10:55 AM CDT COMPREHENSIVE METABOLIC PANEL Routine 04/11/2013 10:55 AM CDT DRUGS OF ABUSE SCREEN, URINE WITHOUT CONFIRMATION Routine 04/11/2013 10:27 AM CDT US RUQ Routine 04/11/2013 9:56 AM CDT documented in this encounter Results * HIV-1 and HIV-2 antibody, rapid (04/11/2013 10:56 AM CDT) HIV 1/2 Ab NONREACTIVE NONREACTIVE Comment: Note: ??A Non-Reactive result indicates an absence of detectable HIV-1/2 antibodies in the patient. However, it does not rule out recent exposure or past infection with HIV. 04/11/2013 10:5 6 AM CDT 04/11/2013 10:59 AM CDT Cindy Douglas MD LAB BLOOD ORDERABLES Jasmin l Result Performing Organization Address [facility]/State/ZIP Co de Phone Number [facility] HISTORICAL RESULTS * MASSIEL reflex to quantitative (04/11/2013 10:55 AM CDT) [facility] MASSIEL Screen None Detected None Detected Comment: No antibodies to Anti-Nuclear Antibodies (MASSIEL) [...] and speckled MASSIEL-IFA patterns. ?? Performed by [employer], ?? [address] [facility] [place] [address] ?? [email or web address], Derick Walters MD, Lab. Director ?? 04/11/2013 10:5 5 AM CDT 04/11/2013 10:59 AM CDT Cindy Douglas MD LAB BLOOD ORDERABLES Jasmin l Result [facility] HISTORICAL RESULTS * (ABNORMAL) CBC with auto differential (04/11/2013 10:55 AM CDT) [facility] WBC 5.7 4.6 - 10.2 x10 3/ul RBC 4.76 4.11 - 5.71 x10 6/ul Hemoglobin 15.4 13.0 - 17.0 g/dl 04/11/2013 11:18 [facility] HISTORICAL RESULTS Hct 44.6 38.2 - 48.5 % 04/11/2013 11:18 AM [facility] HISTORICAL RESULTS MCV 93.7 80.0 - 97.0 fl 04/11/2013 11:18 AM [facility] HISTORICAL RESULTS MCH 32.4(H) 27.0 - 31.2 pg 04/11/2013 11:18 AM [facility] HISTORICAL RESULTS MCHC 34.5 31.8 - 35.4 g/dl 04/11/2013 11:18 AM [facility] HISTORICAL RESULTS RDW 13.5 11.6 - 14.8 % 04/11/2013 11:18 AM [facility] HISTORICAL RESULTS Plt Count 197 124 - 400 x10 3/ul 04/11/2013 11:18 AM [facility] HISTORICAL RESULTS MPV 9.5 7.4 - 10.4 fl 04/11/2013 11:18 AM [facility] HISTORICAL RESULTS Differential Method AUTOMATED DIFF --------- -- 04/11/2013 11:18 AM [facility] HISTORICAL RESULTS Neut % 41.9 37.0 - 85.0 % 04/11/2013 11:18 AM [facility] HISTORICAL RESULTS Immature Gran % 0.2 0.0 - 3.0 % 04/11/2013 11:18 AM [facility] HISTORICAL RESULTS Lymph % 46.9(H) 5.0 - 45.0 % 04/11/2013 11:18 AM [facility] HISTORICAL RESULTS Red Willow % 8.0 3.0 - 15.0 % 04/11/2013 11:18 AM [facility] HISTORICAL RESULTS Eos % 2.3 0.0 - 7.0 % 04/11/2013 11:18 AM [facility] HISTORICAL RESULTS Baso % 0.7 0.0 - 2.0 % 04/11/2013 11:18 AM [facility] HISTORICAL RESULTS ABSOLUTE COUNTS ABSOLUTE COUNTS --------- -- 04/11/2013 11:18 AM [facility] HISTORICAL RESULTS Absolute Neuts (auto) 2.4 1.7 - 8.7 x10 3/ul Immature Gran # 0.0 0.0 - 0.3 x10 3/ul Absolute Lymphs (auto) 2.7 0.2 - 4.6 x10 3/ul Absolute Monos (auto) 0.5 0.1 - 1.5 x10 3/ul Absolute Eos (auto) 0.1 0.0 - 0.7 x10 3/ul Absolute Basos (auto) 0.0 0.0 - 0.2 x10 3/ul 04/11/2013 10:5 5 AM CDT 04/11/2013 10:59 AM CDT Cindy Douglas MD LAB BLOOD ORDERABLES Jasmin daniel Result [facility] HISTORICAL RESULTS * (ABNORMAL) Hepatitis C Virus (HCV) RNA, Qualitative, WILLOW (04/11/2013 10:55 AM CDT) HCV RNA Detected( H) Not Detected Comment: TEST INFORMATION: Hepatitis C Virus RNA [...] Cellular Tissue-Based Products (HCT/P). ?? Performed by [employer], ?? [address] [facility] [place] [address] ?? [email or web address], Derick Walters MD, Lab. Director ?? 04/11/2013 10:5 5 AM CDT 04/11/2013 10:59 AM CDT Cindy Douglas MD LAB BLOOD ORDERABLES Jasmin daniel Result [facility] HISTORICAL RESULTS * HCV GENOTYPING BY SEQUENCING (04/11/2013 10:55 AM CDT) HCV genotype 1a or 1b () Comment: Cannot be further subtyped into Type 1a or Type 1b due to ?? high conservation of the 5 untranslated region of the HCV ?? genome. ??In addition, Type 6 virus may be misclassified as ?? Type 1 in some cases. ?? INTERPRETIVE INFORMATION: ??Hepatitis C Genotyping ?? Hepatitis C viral RNA is tested using reverse property management specialist ?? polymerase chain reaction (RT-PCR) to amplify a specific ?? portion of the 5' untranslated region (5' UTR) of the viral ?? genome. The amplified nucleic acid is sequenced ?? bi-directionally using dye-terminator chemistry ([employer]). ?? Sequencing data is compared to a [...] ?? Test developed and characteristics determined by [facility]. See Compliance Statement B: [employer]/ ?? Performed by [employer], ?? [address] [facility] [place] [address] ?? [email or web address], Derick Walters MD, Lab. Director ?? 04/11/2013 10:5 5 AM CDT 04/11/2013 10:59 AM CDT Cindy Douglas MD LAB BLOOD ORDERABLES Jasmin l Result Performing Organization Address [facility] de Phone Number [facility] HISTORICAL RESULTS * Protime-INR (04/11/2013 10:55 AM CDT) PT 14.7 12.2 - 14.8 SECONDS INR 1.12 0.01 - 5.99 Comment: Recommended Therapeutic range for Oral Anticoagulant Therapy No anti-coagulation therapy ? Normal Range: ?0.8-1.4 Anti-coagulation therapy ? Low intensity therapy ?2.0-3.0 ? High intensity therapy ?? 2.5-3.5 Critical Value ? Greater than or equal to 6.0 Patients should be monitored for serious bleeding. ?? 04/11/2013 10:5 5 AM CDT 04/11/2013 10:59 AM CDT Cindy Douglas MD LAB BLOOD ORDERABLES Jasmin l Result Performing Organization Address [facility] de Phone Number [facility] HISTORICAL RESULTS * (ABNORMAL) Hepatitis panel, acute (04/11/2013 10:55 AM CDT) HepBsAg NONREACT NONREACTIVE Comment: Siemens ImaxioaurXP using CHRISTOPHER (chemiluminescent immunoassay) technology. NONREACTIVE: IgM antibodies to Hepatitis B Surface antigen not detected. REACTIVE: IgM antibodies to Hepatitis B Surface antigen detected. Reactive results will be confirmed by neutralization testing. HBsAb (immune status) NONREACT NONREACTIVE Comment: Siemens CentaurXP using CHRISTOPHER (chemiluminescent immunoassay) technology. NONREACTIVE: IgM antibodies to Hepatitis B Surface antibody not detected. REACTIVE: IgM antibodies to Hepatitis B Surface antibody detected. Hep B core IgM NONREACT NONREACTIVE 3 12:40 PM CDT [facility] HISTORICAL RESULTS Comment: Siemens CentaurXP using [...] Hepatitis C detected. Hepatitis C Virus Note Comment:NO CONFIRMATION TEST ING REQUIRED DUE TO HIGH REACTIVITY. 04/11/2013 10:5 5 AM CDT 04/11/2013 10:59 AM CDT us Cindy Douglas MD LAB MICROBIOLOGY - GENERA L ORDERABLES Final Result [facility] HISTORICAL RESULTS * TSH (04/11/2013 10:55 AM CDT) TSH 1.28 0.27 - 4.20 uIU/mL 04/11/2013 10:5 5 AM CDT 04/11/2013 10:59 AM CDT Cindy Douglas MD LAB BLOOD ORDERABLES Jasmin l Result Performing Organization Address [facility] Co de Phone Number [facility] HISTORICAL RESULTS * hCG, (beta) tumor marker (04/11/2013 10:55 AM CDT) BETA HCG TUMOR MARKER < 0.1 0.0 - 2.0 mIU/mL Comment: This result cannot be interpreted as absolute evidence of the presence or absense of malignant disease. This assay is intended for the early detection of and is not labeled for use as a tumor marker. 04/11/2013 10:5 5 AM CDT 04/11/2013 10:59 AM CDT Cindy Douglas MD LAB BLOOD ORDERABLES Jasmin l Result Performing Organization Address [facility] de Phone Number [facility] HISTORICAL RESULTS * Ferritin (04/11/2013 10:55 AM CDT) Ferritin 397.6 30.0 - 400.0 ng/mL 04/11/2013 10:5 5 AM CDT 04/11/2013 10:59 AM CDT Cindy Douglas MD LAB BLOOD ORDERABLES Jasmin l Result Performing Organization Address [facility] de Phone Number [facility] HISTORICAL RESULTS * (ABNORMAL) Iron profile w/ IBC (04/11/2013 10:55 AM CDT) Iron 238(H) 59 - 158 ug/dL Comment:Fasting specimen pre ferred TIBC 310 228 - 428 ug/dL Transferrin % Sat 77(H) 20 - 50 % 04/11/2013 10:5 5 AM CDT 04/11/2013 10:59 AM CDT Cindy Douglas MD LAB BLOOD ORDERABLES Jasmin l Result [facility] HISTORICAL RESULTS * (ABNORMAL) Uric acid (04/11/2013 10:55 AM CDT) Uric Acid 7.8(H) 3.4 - 7.0 mg/dL 04/11/2013 10:5 5 AM CDT 04/11/2013 10:59 AM CDT Cindy Douglas MD LAB BLOOD ORDERABLES Jasmin l Result Performing Organization Address [facility] Co de Phone Number [facility] HISTORICAL RESULTS * Hepatic function panel (04/11/2013 10:55 AM CDT) Direct Bilirubin < 0.20 0.00 - 0.25 mg/dL 04/11/2013 10:5 5 AM CDT 04/11/2013 10:59 AM CDT Cindy Douglas MD LAB BLOOD ORDERABLES Jasmin l Result Performing Organization Address [facility] Co de Phone Number [facility] HISTORICAL RESULTS * (ABNORMAL) Comprehensive metabolic panel (04/11/2013 10:55 AM CDT) Sodium 139 135 - 145 mmol/L Potassium 4.4 3.3 - 5.1 mmol/L 04/11/2013 11:39 AM [facility] HISTORICAL RESULTS Chloride 101 96 - 108 mmol/L 04/11/2013 11:39 AM [facility] HISTORICAL RESULTS Carbon Dioxide 30 22 - 32 mmol/L 04/11/2013 11:39 AM [facility] HISTORICAL RESULTS Anion Gap 8 04/11/2013 11:39 AM [facility] HISTORICAL RESULTS Glucose 98 70 - 110 mg/dL 04/11/2013 11:39 AM [facility] HISTORICAL RESULTS BUN 9 6 - 20 mg/dL 04/11/2013 11:39 AM [facility] HISTORICAL RESULTS Creatinine 0.9 0.5 - 1.3 mg/dL 04/11/2013 11:39 AM [facility] HISTORICAL RESULTS Kidney Disease Stage > 90 mL/MIN 04/11/2013 11:39 AM [facility] HISTORICAL RESULTS Comment: NOTE; ??The GFR is [...] Kidney failure or on dialysis @ Calcium 9.8 8.6 - 10.2 mg/dL 04/11/2013 11:39 AM [facility] HISTORICAL RESULTS Comment: Reporting units changed on 04-03-2013 from mmol/L to mg/dL. Compare to previous results with caution. Total Protein 8.4 6.4 - 8.4 g/dL 04/11/2013 11:39 AM [facility] HISTORICAL RESULTS Albumin 4.4 3.5 - 5.2 g/dL 04/11/2013 11:39 AM [facility] HISTORICAL RESULTS Globulin 4.0(H) 2.3 - 3.5 gm/dL 04/11/2013 11:39 AM [facility] HISTORICAL RESULTS Albumin/Globulin Ratio 1.1 1.1 - 1.8 Total Bilirubin 0.5 0.0 - 1.2 mg/dL 04/11/2013 11:39 AM [facility] HISTORICAL RESULTS AST 86(H) 0 - 38 U/L 04/11/2013 11:39 AM [facility] HISTORICAL RESULTS ALT 106(H) 0 - 41 U/L 04/11/2013 11:39 AM [facility] HISTORICAL RESULTS Alkaline Phosphatase 86 40 - 129 U/L 04/11/2013 11:39 AM [facility] HISTORICAL RESULTS 04/11/2013 10:5 5 AM CDT 04/11/2013 10:59 AM CDT us Cindy Douglas MD LAB BLOOD ORDERABLES Jasmin daniel Result [facility] HISTORICAL RESULTS * Drug Screen, Urine (04/11/2013 10:27 AM CDT) Ur Amphetamine Screen NEGATIVE NEGATIVE 04/11/2013 11:35 AM [facility] HISTORICAL RESULTS Comment: Cutoff Limit: ??1000 ng/mL Note: ??Positive results from this drug screen are unconfirmed. ??Unconfirmed screening results should not be used for non-medical purposes. Ur Barbiturates Screen NEGATIVE NEGATIVE 04/11/2013 11:35 AM [facility] HISTORICAL RESULTS Comment:Cutoff limit: 200 ng /mL U Benzodiazepines Scrn NEGATIVE NEGATIVE 04/11/2013 11:35 AM [facility] HISTORICAL RESULTS Comment:Cutoff limit: 300 ng /mL U Cannabinoids Screen NEGATIVE NEGATIVE 04/11/2013 11:35 AM [facility] HISTORICAL RESULTS Comment:Cutoff Limit: 50 ng/ mL U Cocaine Metab Screen NEGATIVE NEGATIVE Comment:Cutoff limit: 300 ng /mL Urine Opiates Screen NEGATIVE NEGATIVE Comment:Cutoff Limit: 300 ng /mL Urine Creatinine/GERMAN 256.0 mg/dL Comment:If Creatinine is < 4 0 mg/dL, recollection is suggested. 04/11/2013 10:2 7 AM CDT 04/11/2013 10:47 AM CDT us Cindy Douglas MD LAB URINE ORDERABLES Jasmin daniel Result [facility] HISTORICAL RESULTS * US RUQ (04/11/2013 9:56 AM CDT) Anatomical Region Laterality Modality Abdomen N/A Ultrasound 04/11/2013 9:56 AM CDT Impressions 04/11/2013 12:38 PM CDT ?? 1. ??Slightly nodular contour of the liver, suggesting possible cirrhosis. 2. ??No sonographic evidence of intrahepatic mass or portal venous hypertension. THIS IS AN ELECTRONICALLY VERIFIED REPORT 04/11/2013 12:35 PM: ??Emir House M.D. Emir House M.D. : 12:35 PM 12:35 PM [facility] [EOD] Narrative 04/11/2013 12:38 PM CDT EXAMINATION: ??Right upper quadrant abdominal ultrasound HISTORY: ??42-year-old male with chronic hepatitis C TECHNIQUE: ??Real time chavis-scale and color and spectral Doppler ultrasound of the abdominal right upper quadrant was performed. COMPARISON: ??None available FINDINGS: ?? No cholelithiasis, gallbladder wall thickening, or pericholecystic fluid is seen. ??Sonographic Anders's sign is negative according to the business banking sales assistant. The common bile duct is normal in caliber, measuring 0.38 cm. Visualized portions of the pancreatic head and body appears sonographically unremarkable, the tail is obscured by overlying bowel gas. The contour of the liver appears slightly lobular. ??The liver is normal in size and echogenicity, measuring 16 cm in length. ??No intrahepatic biliary ductal dilatation or hepatic mass is seen. ??The main portal vein is patent. ??The right kidney measures 11.0 x 5.2 x 4.4 cm. ??The right renal cortex is normal in thickness, measuring 1.3 cm. ??No right renal mass, hydronephrosis, or perinephric fluid collection is seen. Procedure Note Provider, MD Crista - 11/02/2020 EXAMINATION: Right upper quadrant abdominal ultrasound HISTORY: 42-year-old male with chronic hepatitis C TECHNIQUE: Real time chavis-scale and color and spectral Doppler ultrasoundof the abdominal right upper quadrant was performed. COMPARISON: None available FINDINGS: No cholelithiasis, gallbladder wall thickening, or pericholecystic fluidis seen. Sonographic Anders's sign is negative according to the business banking sales assistant.The common bile duct is normal in caliber, measuring 0.38 cm. Visualized portions of the pancreatic head and body appearssonographically unremarkable, the tail is obscured by overlying bowel gas. The contour ofthe liver appears slightly lobular. The liver is normal in size andechogenicity, measuring 16 cm in length. No intrahepatic biliary ductal dilatation or hepatic mass is seen. The main portal vein is patent. The right kidney measures 11.0 x 5.2 x 4.4 cm. The right renal cortex is normal inthickness, measuring 1.3 cm. No right renal mass, hydronephrosis, or perinephricfluid collection is seen. IMPRESSION: 1. Slightly nodular contour of the liver, suggesting possiblecirrhosis. 2. No sonographic evidence of intrahepatic mass or portal venoushypertension. THIS IS AN ELECTRONICALLY VERIFIED REPORT 04/11/2013 12:35 PM: Emir House M.D. Emir House M.D. MD: 12:35 PM 12:35 PM [facility] [EOD] us Cindy Douglas MD [facility] PROCEDURES Final R esult documented in this encounter Visit Diagnoses Diagnosis Chronic hepatitis C (CMS/HCC) (HCC) Chronic hepatitis C without mention of hepatic coma Need for prophylactic vaccination and inoculation against viral hepatitis Encounter for long-term (current) use of other medications documented in this encounter Additional Health Concerns Infection Onset Date Last Indicated Resolved Time 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
--- OUTSIDE RECORDS SUMMARY | 2024-06-27 04:57 | XMS_ITS | Encounter Summary ---
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 Name Role Phone Unavailable Primary Care Provider Unavailabl e Encounter Details Date Type Department Care Team (Latest Contact Info) Description 10/09/2013 1:09 PM CDT Hospital Encounter [facility] OP Cindy Douglas MD [address] [facility] [address] [place] [address] Chronic hepatitis C (CMS/HCC) (HCC) Social History [...] Name Priority Date/Time Associated Diagnosis Comments HEPATITIS C VIRUS (HCV) RNA, QUALITATIVE, WILLOW Routine 10/09/2013 1:19 PM CDT CBC WITH AUTO DIFFERENTIAL Routine 10/09/2013 1:19 PM CDT HEPATITIS C RNA, QUANTITATIVE, PCR Routine 10/09/2013 1:19 PM CDT PROTIME-INR Routine 10/09/2013 1:19 PM CDT HEPATIC FUNCTION PANEL Routine 4 1:19 PM CDT COMPREHENSIVE METABOLIC PANEL Routine 10/09/2013 1:19 PM CDT DRUGS OF ABUSE SCREEN, URINE WITHOUT CONFIRMATION Routine 10/09/2013 1:10 PM CDT documented in this encounter Results * (ABNORMAL) CBC with auto differential (10/09/2013 1:19 PM CDT) WBC 8.2 4.6 - 10.2 x10 3/ul 10/09/2013 1:29 PM CDT [facility] RBC 4.77 4.11 - 5.71 x10 6/ul 10/09/2013 1:29 PM CDT [facility] HISTOR[facility] RESULTS Hemoglobin 15.4 13.0 - 17.0 g/dl 10/09/2013 1:29 PM CDT [facility] HISTORICAL RESULTS Hct 43.2 38.2 - 48.5 % 10/09/2013 1:29 PM CDT [facility] HISTORICAL RESULTS MCV 90.6 80.0 - 97.0 fl 10/09/2013 1:29 PM CDT [facility] HISTORICAL RESULTS MCH 32.3(H) 27.0 - 31.2 pg 10/09/2013 1:29 PM CDT [facility] RES[facility] MCHC 35.6(H) 31.8 - 35.4 g/dl 10/09/2013 1:29 PM CDT [facility] HISTORICAL RESULTS RDW 12.4 11.6 - 14.8 % 10/09/2013 1:29 PM CDT [facility] HISTORICAL RESULTS Plt Count 211 124 - 400 x10 3/ul 10/09/2013 1:29 PM CDT [facility] [employer] [facility] HISTORICAL RESULTS MPV 8.8 7.4 - 10.4 fl 10/09/2013 1:29 PM CDT [facility] HISTORICAL RESULTS Differential Method AUTOMATED DIFF --------- -- 10/09/2013 1:29 PM CDT [facility] [employer] [facility] HISTORICAL RESULTS Neut % 52.7 37.0 - 85.0 % 10/09/2013 1:29 PM CDT [facility] [employer] [facility] HISTORICAL RESULTS Immature Gran % 0.1 0.0 - 3.0 % Lymph % 36.6 5.0 - 45.0 % Manati % 8.7 3.0 - 15.0 % Eos % 1.3 0.0 - 7.0 % Baso % 0.6 0.0 - 2.0 % ABSOLUTE COUNTS ABSOLUTE COUNTS --------- -- Absolute Neuts (auto) 4.3 1.7 - 8.7 x10 3/ul Immature Gran # 0.0 0.0 - 0.3 x10 3/ul Absolute Lymphs (auto) 3.0 0.2 - 4.6 x10 3/ul Absolute Monos (auto) 0.7 0.1 - 1.5 x10 3/ul Absolute Eos (auto) 0.1 0.0 - 0.7 x10 3/ul Absolute Basos (auto) 0.1 0.0 - 0.2 x10 3/ul 10/09/2013 1:19 PM CDT 10/09/2013 1:27 PM CDT us Cindy Douglas MD LAB BLOOD ORDERABLES Jasmin dainel Result [facility] HISTORICAL RESULTS * Hepatitis C Virus (HCV) RNA, Qualitative, WILLOW (10/09/2013 1:19 PM CDT) Pathologist [facility] HCV RNA Not Detected Not Detected Comment: TEST INFORMATION: Hepatitis C [...] Cellular Tissue-Based Products (HCT/P). ?? Performed by [employer], ?? [address], [facility] [place] [address] ?? [email or web address], Derick Walters MD, Lab. Director ?? 10/09/2013 1:19 PM CDT 10/09/2013 1:27 PM CDT Cindy Douglas MD LAB BLOOD ORDERABLES Jasmin daniel Result [facility] HISTORICAL RESULTS * Hepatitis C (HCV) RNA PCR, quantitative (10/09/2013 1:19 PM CDT) [facility] HBsAb log IU/mL <1.6 () log IU 4 2:19 PM CDT [facility] HISTORICAL RESULTS Comment: INTERPRETIVE INFORMATION: Hepatitis C Virus RNA ?? Quantitative Real-Time PCR(log IU/mL) ?? The quantitative range of this assay is 1.6 - 7.8 log IU/mL ?? (43- 69,000,000 IU/mL). ?? The limit of detection (LOD) of this assay for all ?? genotypes is 18 IU/mL (1.2 log IU/mL). ?? The limit of detection (LOD) of this assay for genotype 1 ?? is 7.1 IU/mL (0.85 log IU/mL). ?? These LOD values do not apply to diluted specimens. ?? An interpretation of Not Detected does not rule out the ?? presence of PCR inhibitors in the patient specimen or ?? hepatitis C virus RNA concentrations below the level of ?? detection of the test. Care should be taken when ?? interpreting any single viral load determination. ?? This test should not be used for blood donor screening, ?? associated re-entry protocols, or for screening Human Cell, ?? Tissues and Cellular Tissue-Based Products (HCT/P). ?? HCV RNA IU/mL <43 () IU/mL HCV RNA result Not Detected Not Detected HCV RNA See Note () Comment: To download an enhanced report for this test go to: ?? [email or web address] ?? [email or web address] ?? [email or web address] ?? Performed by [facility], ?? [address] [place] [address] ?? [email or web address], Derick Walters MD, Lab. Director ?? 10/09/2013 1:19 PM CDT 10/09/2013 1:27 PM CDT us Cindy Douglas MD LAB MICROBIOLOGY - GENERA L ORDERABLES Final Result [facility] HISTORICAL RESULTS * Protime-INR (10/09/2013 1:19 PM CDT) PT 13.7 12.2 - 14.8 SECONDS INR 1.02 0.01 - 5.99 Comment: Recommended Therapeutic range for Oral Anticoagulant Therapy No anti-coagulation therapy ? Normal Range: ?0.8-1.4 Anti-coagulation therapy ? Low intensity therapy ?2.0-3.0 ? High intensity therapy ?? 2.5-3.5 Critical Value ? Greater than or equal to 6.0 Patients should be monitored for serious bleeding. ?? 10/09/2013 1:19 PM CDT 10/09/2013 1:27 PM CDT Cindy Douglas MD LAB BLOOD ORDERABLES Jasmin l Result Performing Organization Address [facility] de Phone Number [facility] HISTORICAL RESULTS * (ABNORMAL) Hepatic function panel (10/09/2013 1:19 PM CDT) Direct Bilirubin 0.33(H) 0.00 - 0.25 mg/dL 10/09/2013 1:19 PM CDT 10/09/2013 1:27 PM CDT Cindy Douglas MD LAB BLOOD ORDERABLES Jasmin l Result Performing Organization Address [facility] de Phone Number [facility] HISTORICAL RESULTS * (ABNORMAL) Comprehensive metabolic panel (10/09/2013 1:19 PM CDT) Sodium 135 135 - 145 mmol/L Potassium 3.9 3.3 - 5.1 mmol/L Chloride 101 96 - 108 mmol/L Carbon Dioxide 25 22 - 32 mmol/L Anion Gap 9 7 - 16 Glucose 105 70 - 110 mg/dL BUN 7 6 - 20 mg/dL Creatinine 0.7 0.5 - 1.3 mg/dL Kidney Disease Stage > 90 mL/MIN Comment: [...] @ Calcium 9.4 8.6 - 10.2 mg/dL Comment: Reporting units changed on 04-03-2013 from mmol/L to mg/dL. Compare to previous results with caution. Total Protein 7.9 6.6 - 8.7 g/dL Albumin 4.1 3.5 - 5.2 g/dL Globulin 3.8(H) 2.3 - 3.5 gm/dL Albumin/Globulin Ratio 1.1 1.1 - 1.8 Total Bilirubin 1.0 0.0 - 1.2 mg/dL AST 23 0 - 40 U/L ALT 21 0 - 41 U/L Alkaline Phosphatase 88 40 - 129 U/L 10/09/2013 1:19 PM CDT 10/09/2013 1:27 PM CDT us Cindy Douglas MD LAB BLOOD ORDERABLES Jasmin l Result [facility] HISTORICAL RESULTS * Drug Screen, Urine (10/09/2013 1:10 PM CDT) Ur Amphetamine Screen NEGATIVE NEGATIVE Comment: Cutoff Limit: ??1000 ng/mL Note: ??Positive results from this drug screen are unconfirmed. ??Unconfirmed screening results should not be used for non-medical purposes. Ur Barbiturates Screen NEGATIVE NEGATIVE Comment:Cutoff limit: 200 ng /mL U Benzodiazepines Scrn NEGATIVE NEGATIVE Comment:Cutoff limit: 300 ng /mL U Cannabinoids Screen NEGATIVE NEGATIVE Comment:Cutoff Limit: 50 ng/ mL U Cocaine Metab Screen NEGATIVE NEGATIVE Comment:Cutoff limit: 300 ng /mL Urine Opiates Screen NEGATIVE NEGATIVE Comment:Cutoff Limit: 300 ng /mL Urine Creatinine/GERMAN 237.0 mg/dL Comment:If Creatinine is < 4 0 mg/dL, recollection is suggested. 10/09/2013 1:10 PM CDT 10/09/2013 1:38 PM CDT Narrative [facility] HISTORICAL RESULTS - 10/09/2013 2:12 PM CDT us Cindy Douglas MD LAB URINE ORDERABLES Jasmin daniel Result [facility] HISTORICAL RESULTS documented in this encounter Visit Diagnoses Diagnosis Chronic hepatitis C (CMS/HCC) (HCC) Chronic hepatitis C without mention of hepatic coma documented in this encounter Additional Health Concerns Infection Onset Date Last Indicated Resolved Time 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
--- OUTSIDE RECORDS SUMMARY | 2024-06-27 04:57 | XMS_ITS | Encounter Summary ---
Author Organization [facility] Healthcare Address [address] [place] [address] Care Team Providers Care Railway Engineer Name Role Phone Unavailable Primary Care Provider Unavailabl e Encounter Details Date Type Department Care Team (Latest Contact Info) Description 04/11/2013 11:29 AM CDT Hospital Encounter [facility] OP Cindy Douglas MD [address] [facility] [address] [place] [address] Need for prophylactic vaccination and inoculation against viral hepatitis Social History Tobacco Use Types Packs/Day Years Used Date Smoking Tobacco: Never Assessed Sex and Gender Information Value Date Recorded Sex Assigned at Not on file Legal Sex Male 8:48 AM CDT Gender Identity Not on file Sexual Orientation Not on file documented as of this encounter Plan of Treatment Not on file documented as of this encounter Visit Diagnoses Diagnosis Need for prophylactic vaccination and inoculation against viral hepatitis documented in this encounter Additional Health Concerns Infection Onset Date Last Indicated Resolved Time 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
--- OUTSIDE RECORDS SUMMARY | 2024-06-27 04:57 | XMS_ITS | Encounter Summary ---
Author Organization [facility] Healthcare Address [address] [place] [address] Care Team Providers Care Table Games Supervisor Name Role Phone Unavailable Primary Care Provider Unavailabl e Encounter Details Date Type Department Care Team (Late st Contact Info) Description 03/17/2014 10:41 AM CDT Hospital Encounter [facility] OP Jayne Bowen MD [address] [place] [address] Lumbosacral spondylosis without myelopathy; Displacement of lumbar intervertebral disc without myelopathy Social History Tobacco Use Types Packs/Day Years [...] Procedure Name Priority Date/Time Associated Diagnosis Comments MRI LUMBAR SPINE WO CONTRAST Routine 03/17/2014 11:00 AM CDT documented in this encounter Results * MRI Lumbar Spine WO Contrast (03/17/2014 11:00 AM CDT) Anatomical Region Laterality Modality Spine N/A Magnetic Resonan ce 03/17/2014 11:0 0 AM CDT Impressions 03/17/2014 12:12 PM CDT ?? 1. ??Moderate lumbar spondylosis with facet arthropathy. ??Associated mild spinal canal stenosis at L4-5. 2. ??Central to left paracentral protrusion at L5-S1 occupies the left lateral recess and may be displace the transiting left S1 nerve root. THIS IS AN ELECTRONICALLY VERIFIED REPORT 03/17/2014 12:08 PM: ??Marcio Yun D.O. Marcio Yun D.O. :as 12:08 PM 12:08 PM [facility] [EOD] Narrative 03/17/2014 12:12 PM CDT EXAMINATION: ??MRI lumbar spine without contrast. HISTORY: ??Low back pain. TECHNIQUE: ??Sagittal and axial T1, T2 and sagittal STIR sequences were performed without contrast. COMPARISON: ??Lumbar radiographs performed 12/10/2012. FINDINGS: ??For purposes of this dictation the lowest developed disc space is considered to be L5-S1. Alignment and curvature is normal. ??There is no compression fracture or spondylolisthesis. ??There is desiccation and loss of disc height favoring L4-5 and to a greater extent L5-S1. ??Scattered endplate reactive marrow signal changes are noted. ??There is no concerning marrow replacement process. The conus terminates at the superior field of view near T12. ??No cord tethering lesions are identified. At the L1-2 level there is no disc herniation, spinal canal or foraminal stenosis although dedicated axial images were not provided through this level. At the L2-3 level there is an annular bulge but without a focal disc herniation or spinal canal stenosis. ??No lateral recess or foraminal narrowing is observed. At the L3-4 level there is no disc herniation or spinal canal stenosis. ??Facet hypertrophy is present about lateral recess or foraminal stenosis. At the L4-5 level there is an annular bulge but without a focal disc herniation identified. ??In conjunction with facet hypertrophy and ligamentum flavum thickening there is relatively mild spinal canal stenosis. ??There is no lateral recess or foraminal narrowing. At the L5-S1 level there is annular bulge and small central to left paracentral protrusion. ??This focally occupies the left lateral recess and may displace the transiting left S1 nerve root. ??The thecal sac is largely tapered with the majority the canal filled with epidural fat. ??There is no significant foraminal stenosis. Procedure Note Provider, MD Crista - 11/02/2020 EXAMINATION: MRI lumbar spine without contrast. HISTORY: Low back pain. TECHNIQUE: Sagittal and axial T1, T2 and sagittal STIR sequences were performed without contrast. COMPARISON: Lumbar radiographs performed 12/10/2012. FINDINGS: For purposes of this dictation the lowest developed disc spaceis considered to be L5-S1. Alignment and curvature is normal. There is no compression fracture or spondylolisthesis. There is desiccation and loss of disc height favoringL4-5 and to a greater extent L5-S1. Scattered endplate reactive marrow signal changes are noted. There is no concerning marrow replacement process. The conus terminates at the superior field of view near T12. No cord tethering lesions are identified. At the L1-2 level there is no disc herniation, spinal canal or foraminal stenosis although dedicated axial images were not provided through thislevel. At the L2-3 level there is an annular bulge but without a focal disc herniation or spinal canal stenosis. No lateral recess or foraminalnarrowing is observed. At the L3-4 level there is no disc herniation or spinal canal stenosis.Facet hypertrophy is present about lateral recess or foraminal stenosis. At the L4-5 level there is an annular bulge but without a focal disc herniation identified. In conjunction with facet hypertrophy andligamentum flavum thickening there is relatively mild spinal canal stenosis. Thereis no lateral recess or foraminal narrowing. At the L5-S1 level there is annular bulge and small central to left paracentral protrusion. This focally occupies the left lateral recess andmay displace the transiting left S1 nerve root. The thecal sac is largelytapered with the majority the canal filled with epidural fat. There is nosignificant foraminal stenosis. IMPRESSION: 1. Moderate lumbar spondylosis with facet arthropathy. Associated mild spinal canal stenosis at L4-5. 2. Central to left paracentral protrusion at L5-S1 occupies the leftlateral recess and may be displace the transiting left S1 nerve root. THIS IS AN ELECTRONICALLY VERIFIED REPORT 03/17/2014 12:08 PM: Marcio Yun D.O. Marcio Yun D.O. :as 12:08 PM 12:08 PM [facility] [EOD] Result [facility] Jayne Bowen MD IMG MRI PROCEDURES Final Result documented in this encounter Visit Diagnoses Diagnosis Lumbosacral spondylosis without myelopathy Displacement of lumbar intervertebral disc without myelopathy documented in this encounter Additional Health Concerns Infection Onset Date Last Indicated Resolved Time 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
--- OUTSIDE RECORDS SUMMARY | 2024-06-27 04:57 | XMS_ITS | Encounter Summary ---
Author Organization [facility] Healthcare Address [address] [place] [address] Care Team Providers Care Manager Medicaid Name Role Phone Unavailable Primary Care Provider Unavailabl e Encounter Details Date Type Department Care Team (Late st Contact Info) Description 12/10/2012 1:12 PM CDT Hospital Encounter [facility] OP Jayne Bowen MD [address] [place] [address] Tobacco use disorder; Personal history of exposure to asbestos, presenting hazards to health Social History Tobacco Use Types Packs/Day Years [...] Name Priority Date/Time Associated Diagnosis Comments XR HAND RIGHT 3 OR MORE VIEWS Routine 12/10/2012 1:14 PM CDT XR SPINE LUMBAR 2 OR 3 VIEWS Routine 12/10/2012 1:14 PM CDT XR CHEST PA LATERAL 2 VIEWS Routine 12/10/2012 1:14 PM CDT documented in this encounter Results * XR Spine Lumbar 2 or 3 Views (12/10/2012 1:14 PM CDT) Anatomical Region Laterality Modality Spine N/A Radiographic Lynette ging 12/10/2012 1:14 PM CDT Impressions 12/10/2012 10:42 PM CDT ?? 1. ??Lumbar spondylosis favoring L5-S1. 2. ??Mild levoscoliosis with apex L1-L2 however this may be positional. THIS IS AN ELECTRONICALLY VERIFIED REPORT 12/10/2012 10:31 PM: ??Gamaliel García M.D. Gamaliel García M.D. JA:shaun 02:50 PM 03:28 PM [EOD] Narrative 12/10/2012 10:42 PM CDT EXAMINATION: ??Lumbar spine, three views HISTORY: ??Pain COMPARISON: ??None available FINDINGS: ??There are five [id number] lumbar vertebral bodies. ??For the purpose of this dictation, last fully formed intervertebral disc space will be denoted as L5-S1. ??There is mild levoscoliosis with apex at L1-2, however this may be positional. The vertebral body heights are well maintained. ??There is marked loss of intervertebral disc space at L5-S1 with endplate sclerosis. ??The remaining intervertebral disc spaces are preserved. There is no evidence of anterior or posterior spondylolisthesis. ??There is no acute fracture or dislocation. ??No significant facet hypertrophy seen at any level. ?? The bony mineralization is intact. ??No aggressive appearing periosteal reaction is seen. ??The visualized bowel gas pattern is unremarkable. Procedure Note Provider, MD Crista - 11/02/2020 EXAMINATION: Lumbar spine, three views HISTORY: Pain COMPARISON: None available FINDINGS: There are five [id number] lumbar vertebral bodies. Forthe purpose of this dictation, last fully formed intervertebral disc spacewill be denoted as L5-S1. There is mild levoscoliosis with apex at L1-2, howeverthis may be positional. The vertebral body heights are well maintained. There is marked loss of intervertebral disc space at L5-S1 with endplate sclerosis. The remaining intervertebral disc spaces are preserved. There is no evidence of anterior or posterior spondylolisthesis. There isno acute fracture or dislocation. No significant facet hypertrophy seen atany level. The bony mineralization is intact. No aggressive appearing periosteal reaction is seen. The visualized bowel gas pattern is unremarkable. IMPRESSION: 1. Lumbar spondylosis favoring L5-S1. 2. Mild levoscoliosis with apex L1-L2 however this may be positional. THIS IS AN ELECTRONICALLY VERIFIED REPORT 12/10/2012 10:31 PM: Gamaliel García M.D. Wesley Acosta 02:50 PM 03:28 PM [EOD] Jayne Bowen MD IMG XR PROCEDURES Final Result * XR Chest Pa Lateral 2 Views (12/10/2012 1:14 PM CDT) Anatomical Region Laterality Modality Body, Chest N/A Radiographic Lynette ging 12/10/2012 1:14 PM CDT Impressions 12/10/2012 10:41 PM CDT ??No acute cardiopulmonary process identified. THIS IS AN ELECTRONICALLY VERIFIED REPORT 12/10/2012 10:31 PM: ??Gamaliel García M.D. Wesley Acosta 02:47 PM 03:24 PM [EOD] Narrative 12/10/2012 10:41 PM CDT RADIOLOGIC EXAMINATION(S): ??CHEST, TWO VIEWS CLINICAL HISTORY: ??Asbestosis exposure COMPARISON: ??None available FINDINGS: PA and lateral view of the chest are reviewed. The cardiac silhouette is within normal limits. ??The lung dover are clear. Soft tissues and osseous structures are unremarkable. Procedure Note Provider, MD Crista - 11/02/2020 RADIOLOGIC EXAMINATION(S): CHEST, TWO VIEWS CLINICAL HISTORY: Asbestosis exposure COMPARISON: None available FINDINGS: PA and lateral view of the chest are reviewed. The cardiac silhouette is within normal limits. The lung dover areclear. Soft tissues and osseous structures are unremarkable. IMPRESSION: No acute cardiopulmonary process identified. THIS IS AN ELECTRONICALLY VERIFIED REPORT 12/10/2012 10:31 PM: Gamaliel García M.D. Wesley Acosta 02:47 PM 03:24 PM [EOD] Jayne Bowen MD IMG XR PROCEDURES Final Result * XR Hand Right 3 or More Views (12/10/2012 1:14 PM CDT) Anatomical Region Laterality Modality Upper Extremities, Hand Right [facility] 12/10/2012 1:14 PM CDT Impressions 12/10/2012 10:42 PM CDT No acute osseous abnormality. THIS IS AN ELECTRONICALLY VERIFIED REPORT 12/10/2012 10:31 PM: ??Gamaliel García M.D. Wesley Acosta 02:49 PM 03:25 PM [EOD] Narrative 12/10/2012 10:42 PM CDT EXAMINATION: ??Right hand, three views HISTORY: Pain attention right index finger. COMPARISON: None available FINDINGS: ??There is no evidence of acute fracture dislocation. ??Joint spaces are preserved. ??Bony mineralization is intact. ??No aggressive appearing periosteal reaction is seen. ??Soft tissues are within normal limits. Procedure Note Provider, MD Crista - 11/02/2020 EXAMINATION: Right hand, three views HISTORY: Pain attention right index finger. COMPARISON: None available FINDINGS: There is no evidence of acute fracture dislocation. Jointspaces are preserved. Bony mineralization is intact. No aggressive appearing periosteal reaction is seen. Soft tissues are within normal limits. IMPRESSION: No acute osseous abnormality. THIS IS AN ELECTRONICALLY VERIFIED REPORT 12/10/2012 10:31 PM: Gamaliel García M.D. Gamaliel García M.D. JA:shaun 02:49 PM 03:25 PM [EOD] Result [facility] Jayne Bowen MD IMG XR PROCEDURES Final Result documented in this encounter Visit Diagnoses Diagnosis Tobacco use disorder Personal history of exposure to asbestos, presenting hazards to health Personal history of contact with and (suspected) exposure to asbestos documented in this encounter
== END 2024-06-20 06:00 ==
PROVIDERS: Emergency Provider Emergency Medicine; PCP Internal Medicine
DX: R42 Dizziness and giddiness (principal); Z20.822 Contact with and (suspected) exposure to COVID-19; I10 Essential (primary) hypertension; N40.0 Benign prostatic hyperplasia without lower urinary tract symptoms; F41.8 Other specified anxiety disorders; F20.9 Schizophrenia, unspecified; F17.210 Nicotine dependence, cigarettes, uncomplicated; Z86.73 Personal history of transient ischemic attack (TIA), and cerebral infarction without residual deficits; Z79.899 Other long term (current) drug therapy; Z79.82 Long term (current) use of aspirin; R94.31 Abnormal electrocardiogram [ECG] [EKG]
CPT/HCPCS: 36415; 71045; 80053; 80307; 82077; 83880; 84484; 85025; 85055; 86850; 86900; 86901; 87637; 93005; 99284

== ENCOUNTER 2024-06-20 06:38 | Emergency (ER) | payer MEDICARE, MEDICAID, SELFPAY ==
--- OUTSIDE RECORDS SUMMARY | 2024-06-27 10:28 | XMS_ITS | Clinical Summary ---
Author Organization [facility] Address [address] [facility] [place] [address] Care Team Providers Care Cargo And Ramp Services Manager Name Role Phone Toni Ravi MD Primary Care Provider [phone] Jomar Nolbe MD Unavailable Source Comments [facility],non-owned Affiliates and Associated Physician Practices is amultiple site organization consisting of ambulatory clinics and hospital sitesin [place], [place], [place] and [place]. This disclosure is being madepursuant to the Care Everywhere program and may not contain all information available regarding this patient. Last updated 18.[facility] Allergies No known active allergies Medications [...] once daily 30 capsule 5 06/21/2023 Active L[place]-3 Fatty Acids (fish oil) 500 MG capsule [...] Acute respiratory failure with hypoxia 08/25/2021 09/13/2021 [place] coma scale total score 4 or 5 [...] Info) Description 08/25/2024 1:10 PM CDT Documentation [facility] [address] [place] [phone] 08/25/2024 1:20 PM CDT Office Visit [address] [place] [phone] Migue Reeder MD [address] [place] [address] [place] [address] [phone] Health Maintenance Due Date Last Done Comments [...] this topic Medical Devices Implanted Type Area Crate Maker Device Identifier Shelf Expiration Date Model / Serial / Lot Plate 59.5x24.4mm 4 Hl Lopro Fx Ang Wire Implanted:Qty: 1 on 10/15/2018 by Maciel Greer MD at [facility] Left: Arm [employer] [id number] / / Peg Fx 2.5mm 22mm Ft Hand Lck Screw F3 Implanted:Qty: 3 on 10/15/2018 by Maciel Greer MD at [facility] Left: Arm [employer] [id number] / / Peg Thread Multidir2.5x18mm Multidirectional Threaded Pegs Implanted:Qty: 1 on 10/15/2018 by Maciel Greer MD at [facility] Left: Arm [employer] [id number] / / Peg Thread Multidir2.5x20mm Multidirectional Threaded Peg Implanted:Qty: 1 on 10/15/2018 by Maciel Greer MD at [facility] Left: Arm [employer] [id number] / / Screw Cortical 3.5 X14mm Cortical Screws Implanted:Qty: 1 on 10/15/2018 by Maciel Greer MD at [facility] Left: Arm [employer] [id number] / / Screw 3.5mm 16mm Beck Ti Nonster Dvr Implanted:Qty: 2 on 10/15/2018 by Maciel Greer MD at [facility] Left: Arm [employer] [id number] / / Explanted Type Area Crate Maker Device Identifier Shelf Expiration Date Model / Serial / Lot Wire K 1.6mm Ss Fx Nonster Explanted:Qty: 3 on 10/15/2018 by Maciel Greer MD at [facility] Left: Arm [employer] [id number] / / Screw 3.5mm 13mm Beck Ti Nonster Dvr Explanted:Qty: 1 on 10/15/2018 by Maciel Greer MD at [facility] Left: Arm [employer] [id number] / / Procedures Procedure Name Priority Date/Time Associated Diagnosis Comments COMPREHENSIVE METABOLIC PANEL Routine 02/25/2024 2:09 PM CDT Thrombocytopenia, secondary Abnormal results of liver function studies Leukopenia, unspecified type HEPATITIS SCREEN ACUTE ([facility]) Routine 04/24/2023 3:19 PM MEAT WASHER Thrombocytopenia, secondary Abnormal results of liver function studies HIV-1 HIV-2 ANTIBODY + HIV P24 AG PANEL Routine 04/24/2023 3:19 PM MEAT WASHER Thrombocytopenia, secondary from Last 3 Months or [...] Resulting Agency Comment Lab Testing performed at: [facility] [address] [facility] ??[facility] [phone] Migue Reeder MD LAB - CHEMISTRY MIGUEL GOLD [facility] INSURANCE BILL [address] [place] [address] * (ABNORMAL) HEPATITIS SCREEN ACUTE ([facility]) (04/24/2023 3:19 PM MEAT WASHER) Hepatitis A Virus Antibody IgM Negative Negative [facility] INSURANCE BILL Hepatitis B Virus Surface Antigen Negative Negative [facility] INSURANCE BILL Hepatitis B Core Virus Antibody IgM Negative Negative [facility] INSURANCE BILL Hepatitis C Antibody Reactive(A) Non Reactive [facility] INSURANCE BILL Blood BLOOD SPECIMEN / Unknown 04/24/2023 3:19 PM MEAT WASHER 04/24/2023 Narrative Resulting Agency Comment Lab Testing performed at: [facility] [address] ??[facility] [phone] Migue Reeder MD LAB - CHEMISTRY MIGUEL GOLD [facility] INSURANCE BILL [address] [place] [address] * HIV-1 HIV-2 ANTIBODY + HIV P24 AG PANEL (04/24/2023 3:19 PM MEAT WASHER) HIV Screen 4th Generation w Reflex Non Reactive Non Reactive [facility] INSURANCE BILL Comment: HIV Negative HIV-1/HIV-2 antibodies and HIV-1 p24 antigen were NOT detected. There is no laboratory evidence of HIV infection. Blood BLOOD SPECIMEN / Unknown 04/24/2023 3:19 PM MEAT WASHER 04/24/2023 Narrative Resulting Agency Comment Lab Testing performed at: [facility] [place] [address] ??[facility] [id number] Migue Reeder MD LAB - CHEMISTRY MIGUEL GOLD [facility] INSURANCE BILL [address] [place] [address] from Last 3 Months or Most Recently [...] 5:43 PM 10/17/2018 6:22 PM Care Teams Cargo And Ramp Services Manager Relationship Specialty Start Date End Date Toni Ravi MD [address] [place] [phone] PCP - General Internal Medicine 04/24/23 Jomar Noble MD [address] [facility] 1 [place] [address] Hospitalist Internal Medicine 04/24/23
--- OUTSIDE RECORDS SUMMARY | 2024-06-27 10:28 | XMS_ITS | Referral Summary ---
Author Organization [facility] Address [address] [facility] [place] [address] Care Team Providers Care It Sales Representative Name Role Phone Toni Ravi MD Primary Care Provider [phone] Jomar Noble MD Unavailable Source Comments [facility],non-owned Affiliates and Associated Physician Practices is amultiple site organization consisting of ambulatory clinics and hospital sitesin [place], [place], [place]. This disclosure is being madepursuant to the Care Everywhere program and may not contain all information available regarding this patient. Last updated 18.[facility] Allergies No known active allergies Medications [...] once daily 30 capsule 5 06/21/2023 Active [place]-3 Fatty Acids (fish oil) 500 MG capsule [...] Acute respiratory failure with hypoxia 08/25/2021 09/13/2021 [place] coma scale total score 4 or 5 [...] Info) Description 08/25/2024 1:[address] [facility] Cancer [address] [phone] 08/25/2024 1:20 PM CDT Office Visit [address] [phone] Migue Reeder MD [address] [place] [address] Medical Devices Implanted Type Area Supervisor Soldering Device Identifier Shelf Expiration Date Model / Serial / Lot Plate 59.5x24.4mm 4 Hl Lopro Fx Ang Wire Implanted:Qty: 1 on 10/15/2018 by Maciel Greer MD at [facility] Left: Arm [employer] [id number] / / Peg Fx 2.5mm 22mm Ft Hand Lck Screw F3 Implanted:Qty: 3 on 10/15/2018 by Maciel Greer MD at [facility] Left: Arm [employer] [id number] / / Peg Thread Multidir2.5x18mm Multidirectional Threaded Pegs Implanted:Qty: 1 on 10/15/2018 by Maciel Greer MD at [facility] Left: Arm [employer] [id number] / / Peg Thread Multidir2.5x20mm Multidirectional Threaded Peg Implanted:Qty: 1 on 10/15/2018 by Maciel Greer MD at [facility] Left: Arm [employer] [id number] / / Screw Cortical 3.5 X14mm Cortical Screws Implanted:Qty: 1 on 10/15/2018 by Maciel Greer MD at [facility] Left: Arm [employer] [id number] / / Screw 3.5mm 16mm Beck Ti Nonster Dvr Implanted:Qty: 2 on 10/15/2018 by Maciel Greer MD at [facility] Left: Arm [employer] [id number] / / Explanted Type Area Supervisor Soldering Device Identifier Shelf Expiration Date Model / Serial / Lot Wire K 1.6mm Ss Fx Nonster Explanted:Qty: 3 on 10/15/2018 by Maciel Greer MD at [facility] Left: Arm [employer] [id number] / / Screw 3.5mm 13mm Beck Ti Nonster Dvr Explanted:Qty: 1 on 10/15/2018 by Maciel Greer MD at [facility] Left: Arm [employer] [id number] / / Procedures Procedure Name Priority Date/Time Associated Diagnosis Comments COMPREHENSIVE METABOLIC PANEL Routine 02/25/2024 2:09 PM CDT Thrombocytopenia, secondary Abnormal results of liver function studies Leukopenia, unspecified type HEPATITIS SCREEN ACUTE ([facility]) Routine 04/24/2023 3:19 PM CAR BUILDER Thrombocytopenia, secondary Abnormal results of liver function studies HIV-1 HIV-2 ANTIBODY + HIV P24 AG PANEL Routine 04/24/2023 3:19 PM CAR BUILDER Thrombocytopenia, secondary from Last 3 Months or [...] Resulting Agency Comment Lab Testing performed at: [facility] [address] [place] [address] ??[facility] [phone] Migue Reeder MD LAB - CHEMISTRY MIGUEL GOLD [facility] Organization Address City/State/ZIP Co de Phone Number [facility] INSURANCE BILL [address] [place] [address] * (ABNORMAL) HEPATITIS SCREEN ACUTE ([facility]) (04/24/2023 3:19 PM CAR BUILDER) Hepatitis A Virus Antibody IgM Negative Negative [facility] INSURANCE BILL Hepatitis B Virus Surface Antigen Negative Negative [facility] INSURANCE BILL Hepatitis B Core Virus Antibody IgM Negative Negative [facility] INSURANCE BILL Hepatitis C Antibody Reactive(A) Non Reactive [facility] INSURANCE BILL Blood BLOOD SPECIMEN / Unknown 04/24/2023 3:19 PM CAR BUILDER 04/24/2023 Narrative Resulting Agency Comment Lab Testing performed at: [facility] [address] ??[facility] [id number] Migue Reeder MD LAB - CHEMISTRY MIGUEL GOLD [facility] INSURANCE BILL [address] [place] [address] * HIV-1 HIV-2 ANTIBODY + HIV P24 AG PANEL (04/24/2023 3:19 PM CAR BUILDER) HIV Screen 4th Generation w Reflex Non Reactive Non Reactive [facility] INSURANCE BILL Comment: HIV Negative HIV-1/HIV-2 antibodies and HIV-1 p24 antigen were NOT detected. There is no laboratory evidence of HIV infection. Blood BLOOD SPECIMEN / Unknown 04/24/2023 3:19 PM CAR BUILDER 04/24/2023 Narrative Resulting Agency Comment Lab Testing performed at: [facility] [address] ??[facility] [phone] Migue Reeder MD LAB - CHEMISTRY MIGUEL GOLD Performing Organization Address City/[facility] Co de Phone Number [facility] INSURANCE BILL [address] [place] [address] from Last 3 Months or Most Recently [...] 5:43 PM 10/17/2018 6:22 PM Care Teams It Sales Representative Relationship Specialty Start Date End Date Toni Ravi MD [address] [place] [phone] PCP - General Internal Medicine 04/24/23 Jomar Noble MD [address] [place] [address] Hospitalist Internal Medicine 04/24/23
--- OUTSIDE RECORDS SUMMARY | 2024-06-27 10:29 | XMS_ITS | Encounter Summary ---
Author Organization [facility] Address [address] [facility] [place] [address] Care Team Providers Care Health Education Teacher Name Role Phone Toni Ravi MD Primary Care Provider [phone] Jomar Noble MD Unavailable Reason for Visit * Reason Comments Follow-up Encounter Details Date Type Department Care Team (Late st Contact Info) Description 06/21/2023 11:20 AM SQUIRREL MAN Office Visit [facility] Care [address] [place] [phone] Migue Reeder MD [address] [place] [address] Thrombocytopenia, secondary (Primary Dx) Social History [...] Comments Blood Pressure 126/71 06/21/2023 11:13 AM SQUIRREL MAN Pulse 80 06/21/2023 11:13 AM SQUIRREL MAN Temperature 36.6 ??C (97.8 ??F) 06/21/2023 1 1:13 AM SQUIRREL MAN Respiratory Rate - - Oxygen Saturation 100% 06/21/2023 11: 13 AM SQUIRREL MAN Inhaled Oxygen Concentration - - Weight 98.8 kg (217 lb 12.8 oz) 024 11:13 AM SQUIRREL MAN Height 190.5 cm (6' 3 ) 06/21/2023 11:1 3 AM SQUIRREL MAN Body Mass Index 27.22 06/21/2023 11:13 AM SQUIRREL MAN documented in this encounter Functional Status Functional [...] Migue Reeder MD - 06/21/2023 11:29 AM SQUIRREL MAN Start Folic acid 1mg daily Also start B complex daily Avoid Nsaids/ETOH F/u in 4 month with JS/KE with cbc, cmp, + b12 /folate +red tube RREL MAN documented in this encounter Progress Notes * [...] had seizures was intubated and transferred to [facility] was treated with nicardipine complicated by pneumonia. He was then referred to long-term care [facility]. Is on several antidepressants and [...] results for input(s): LDH in the last 51130 hours. Latest Reference Range & Units 04/24/23 [...] [place] [address] with a mildly low white cell countof [...] ETOH On thiamine Xifaxamin Under GI at [facility] S/p recent EGD- grade 1 varices AFP- WNL has f/u in office and imaging planned. 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 Hematology/Oncology [facility] RREL MAN documented in this encounter Plan of Treatment Upcoming Encounters Date Type Department Care Team (Late st Contact Info) Description 08/25/2024 1:10 PM CDT Documentation [address] [phone] 08/25/2024 1:20 PM CDT Office Visit [address] [phone] Migue Reeder MD [address] [place] [address] [phone] documented as of this encounter Procedures Procedure Name Priority Date/Time Associated Diagnosis Comments COMPREHENSIVE METABOLIC PANEL Routine 06/21/2023 11:24 AM SQUIRREL MAN Thrombocytopenia, secondary CBC W AUTO DIFFERENTIAL ([facility]) Routine 06/21/2023 10:57 AM SQUIRREL MAN Thrombocytopenia, secondary documented in this encounter Results * (ABNORMAL) COMPREHENSIVE METABOLIC PANEL (06/21/2023 11:24 AM SQUIRREL MAN) Glucose 111(H) 70 - 99 mg/dL [facility] [...] BLOOD SPECIMEN / Unknown 06/21/2023 11:24 AM SQUIRREL MAN 06/21/2023 Narrative Resulting Agency Comment Lab Testing performed at: [address] ??[facility] [phone] Migue Reeder MD LAB - CHEMISTRY MIGUEL GOLD [facility] INSURANCE BILL [address] [place] [address] * (ABNORMAL) CBC W AUTO DIFFERENTIAL ([facility]) (06/21/2023 10:57 AM SQUIRREL MAN) WBC 3.9(L) 4.4 - 10.7 x10E9/L 06/21/2023 11:05 AM SQUIRREL MAN [facility] Neutrophils % 52.0 44.0 - 73.0 % 06/21/2023 11:05 AM SQUIRREL MAN [facility] Lymphocytes % 29.6 20.0 - 43.0 % 06/21/2023 11:05 AM SQUIRREL MAN [facility] Monocytes % 14.2(H) 5.0 - 13.0 % 06/21/2023 11:05 AM SQUIRREL MAN [facility] Eosinophils % 3.4 0.0 - 6.0 % 06/21/2023 11:05 AM SQUIRREL MAN [facility] Basophils % 0.8 0.0 - 2.0 % 06/21/2023 11:05 AM [facility] Neutrophil Absolute 2.02 2.01 - 7.14 x10E9/L 06/21/2023 11:05 AM [facility] Lymphocytes Absolute 1.15 1.07 - 3.94 x10E9/L 06/21/2023 11:05 AM [facility] Monocytes Absolute 0.55 0.26 - 1.07 x10E9/L 06/21/2023 11:05 AM [facility] Eosinophils Absolute 0.13 0 - 0.47 x10E9/L 06/21/2023 11:05 AM [facility] Basophils Absolute 0.03 0 - 0.08 x10E9/L 06/21/2023 11:05 AM [facility] RBC 4.31 3.80 - 5.40 x10E12/L 06/21/2023 11:05 AM [facility] Hemoglobin 13.9 12.0 - 17.6 gm/dL 06/21/2023 11:05 AM [facility] Hematocrit 40.7 35.2 - 51.7 % 06/21/2023 11:05 AM [facility] MCV 94.4 80.7 - 98.3 fl 06/21/2023 11:05 AM [facility] MCH 32.3 26.7 - 34.0 pg 06/21/2023 11:05 AM [facility] MCHC 34.2 30.8 - 35.9 gm/dL 06/21/2023 11:05 AM [facility] RDW-CV 13.9 12.1 - 14.9 % 06/21/2023 11:05 AM [facility] Platelet Count 79(L) 153 - 416 x10E9/L 06/21/2023 11:05 AM [facility] MPV 9.7 9.4 - 12.9 fl 06/21/2023 11:05 AM [facility] Blood BLOOD SPECIMEN / Unknown 06/21/2023 10:57 AM SQUIRREL MAN 06/21/2023 10:57 AM SQUIRREL MAN Narrative [facility] - 06/21/2023 11:05 AM SQUIRREL MAN Cancer Care protocol. Automated differential only. ??Manual differential performed upon provider's request. Thrombocytopenia Migue Reeder MD LAB - HEMATOLOGY ORD ERABLES Performing Organization Address City/State/[facility] Co de Phone Number [facility] [address] [address] documented in this encounter Visit Diagnoses Diagnosis Thrombocytopenia, secondary- Primary Other secondary thrombocytopenia documented in this encounter Additional Health Concerns Infection Onset Date Last Indicated Resolved Time 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 Care Teams Health Education Teacher Relationship Specialty Start Date End Date Toni Ravi MD [address] [place] [phone] PCP - General Internal Medicine 04/24/23 Jomar Noble MD [address] [facility] 1 [place] [address] Hospitalist Internal Medicine 04/24/23 documented as of this encounter
--- OUTSIDE RECORDS SUMMARY | 2024-06-27 10:29 | XMS_ITS | Encounter Summary ---
Author Organization [facility] Address [address] [facility] [place] [address] Care Team Providers Care Tree Marker Name Role Phone Toni Ravi MD Primary Care Provider [phone] Jomar Noble MD Unavailable Encounter Details Date Type Department Care Team (Late st Contact Info) Description 02/25/2024 1:20 PM CDT Office Visit [facility] Care [address] [place] [address] [place] [phone] Migue Reeder MD [address] [place] [address] Thrombocytopenia, secondary (Primary Dx); Abnormal results [...] for evaluation of the thrombocytopenia from her senior care. Recent blood work there was noted to have a platelet count of 81 prior platelet counts have been low as well. 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 He had seizures was intubated and transferred to [facility] was treated with nicardipine complicated by pneumonia. He was then referred to long-term care facility. Is on several antidepressants and antiseizure medication Patient long-term facility senior care resident accompanied by transportation caregiver not aware [...] Jr. is here for follow-up for thrombocytopenia [place] resident. Not accompanied by anyone Overall doing [...] Suicide attempt (HCC) TBI (traumatic brain injury) ([facility]) Past Surgical History: Past Surgical History: Procedure [...] at bedtime meloxicam (Mobic) 7.5 MG tablet [place]-3 Fatty Acids (fish oil) 500 MG capsule [...] results for input(s): LDH in the last 81472 hours. Latest Reference Range & Units 04/24/23 [...] [place] [address] with a mildly low white cell countof [...] Says appetite good weight stable still in senior care. Does not recall medications or any changes. [...] intubated On Vimpat History of polysubstance abuse [facility] resident Unaccompanied today Plan: Continue Folic acid 1mg daily Continue start B complex and thiamine Avoid Nsaids/ETOH F/u in 6 month with JS with cbc, cmp, + b12 /folate +red tube Migue Reeder M.D. Hematology/Oncology [facility] Care * Irma Purcell - 02/25/2024 [...] Info) Description 08/25/2024 1:10 PM CDT Documentation [facility] Cancer [address] [place] [phone] 08/25/2024 1:20 PM CDT Office Visit [address] [phone] Migue Reeder MD [address] [place] [address] documented as of this encounter Procedures [...] Resulting Agency Comment Lab Testing performed at: [facility] [address] [place] [address] ??[facility] [phone] Migue Reeder MD LAB - CHEMISTRY MIGUEL GOLD [facility] INSURANCE BILL [address] [place] [address] * (ABNORMAL) COMPREHENSIVE METABOLIC PANEL (02/25/2024 2:09 [...] Resulting Agency Comment Lab Testing performed at: [facility] [address] [place] [address] ??[facility] [phone] Migue Reeder MD LAB - CHEMISTRY MIGUEL GOLD [facility] INSURANCE BILL [address] [place] [address] * (ABNORMAL) CBC W AUTO DIFFERENTIAL ([facility]) (02/25/2024 1:15 PM CDT) WBC 3.5(L) 4.4 - 10.7 x10E9/L 02/25/2024 1:32 PM CDT [facility] Neutrophils % 51.3 44.0 - 73.0 % 02/25/2024 1:32 PM CDT [facility] Lymphocytes % 35.6 20.0 - 43.0 % 02/25/2024 1:32 PM CDT [facility] Monocytes % 9.1 5.0 - 13.0 % 02/25/2024 1:32 PM CDT [facility] Eosinophils % 3.1 0.0 - 6.0 % 02/25/2024 1:32 PM CDT [facility] Basophils % 0.9 0.0 - 2.0 % 02/25/2024 1:32 PM CDT [facility] Neutrophil Absolute 1.80(L) 2.01 - 7.14 x10E9/L 02/25/2024 1:32 PM CDT [facility] Lymphocytes Absolute 1.25 1.07 - 3.94 x10E9/L 02/25/2024 1:32 PM CDT [facility] Monocytes Absolute 0.32 0.26 - 1.07 x10E9/L 02/25/2024 1:32 PM CDT [facility] Eosinophils Absolute 0.11 0 - 0.47 x10E9/L 02/25/2024 1:32 PM CDT [facility] Basophils Absolute 0.03 0 - 0.08 x10E9/L 02/25/2024 1:32 PM CDT [facility] RBC 4.36 3.80 - 5.40 x10E12/L 02/25/2024 1:32 PM CDT [facility] Hemoglobin 14.4 12.0 - 17.6 gm/dL 02/25/2024 1:32 PM CDT [facility] Hematocrit 41.4 35.2 - 51.7 % 02/25/2024 1:32 PM CDT [facility] MCV 95.0 80.7 - 98.3 fl 02/25/2024 1:32 PM CDT [facility] MCH 33.0 26.7 - 34.0 pg 02/25/2024 1:32 PM CDT [facility] MCHC 34.8 30.8 - 35.9 gm/dL 02/25/2024 1:32 PM CDT [facility] RDW-CV 13.7 12.1 - 14.9 % 02/25/2024 1:32 PM CDT [facility] Platelet Count 80(L) 153 - 416 x10E9/L 02/25/2024 1:32 PM CDT [facility] MPV 9.8 9.4 - 12.9 fl 02/25/2024 1:[address] [facility] Blood BLOOD SPECIMEN / Unknown 02/25/2024 1:15 PM CDT 02/25/2024 1:15 PM CDT Narrative [facility] - 02/25/2024 1:32 PM CDT Cancer Care protocol. Automated differential only. ??Manual differential performed upon provider's request. Thrombocytopenia Migue Reeder MD LAB - HEMATOLOGY ORD ERABLES [facility] [address] [place] [address] documented in this encounter Visit Diagnoses Diagnosis Thrombocytopenia, secondary- Primary Other secondary thrombocytopenia Abnormal results of liver function studies Nonspecific abnormal results of liver function study Leukopenia, unspecified type documented in this encounter Additional Health Concerns Infection Onset Date Last Indicated Resolved Time 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 Care Teams Tree Marker Relationship Specialty Start Date End Date Toni Ravi MD [address] [place] [phone] PCP - General Internal Medicine 04/24/23 Jomar Noble MD [address] [address] Hospitalist Internal Medicine 04/24/23 documented as of this encounter
--- OUTSIDE RECORDS SUMMARY | 2024-06-27 10:29 | XMS_ITS | Encounter Summary ---
Author Organization [facility] Health Address [address] [facility] [place] [address] Care Team Providers Care Operational Risk Consultant Name Role Phone Toni Ravi MD Primary Care Provider [phone] Jomar Noble MD Unavailable Encounter Details Date [...] 08/25/2024 1:10 PM CDT Documentation [facility] [address] [phone] 08/25/2024 1:20 PM CDT Office Visit [address] [phone] Migue Reeder MD [address] [place] [phone] documented as of this encounter Visit Diagnoses Not on filedocumented in this encounter Additional Health Concerns Infection Onset Date Last Indicated Resolved Time 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 Care Teams Operational Risk Consultant Relationship Specialty Start Date End Date Toni Ravi MD [address] [place] [address] PCP - General Internal Medicine 04/24/23 Jomar Noble MD [address] [phone] Hospitalist Internal Medicine 04/24/23 documented as of this encounter
--- OUTSIDE RECORDS SUMMARY | 2024-06-27 10:29 | XMS_ITS | Encounter Summary ---
Author Organization [facility] Address [address] [facility] [place] [address] Care Team Providers Care Powder Hand Name Role Phone Toni Ravi MD Primary Care Provider [phone] Jomar Noble MD Unavailable Reason for Visit * Reason Onset Date Comments Appointment 09/24/2023 See note Encounter Details Date Type Department Care Team (Late st Contact Info) Description 09/24/2023 Telephone [facility] [address] [phone] Migue Reeder MD [address] [address] Appointment (See note) Social History [...] 8:48 AM CDT Kimberley RN, from pt's fpc called and changed pt's appt from 10/23/23 to Sun10/24/23. She states pt needs appts on Sun, Sun, or Sunday. Anju Mercedes RN 09/24/2023 8:49 AM documented in this encounter Plan of Treatment Upcoming Encounters Date Type Department Care Team (Late st Contact Info) Description 08/25/2024 1:10 PM CDT Documentation [facility] [address] [phone] 08/25/2024 1:20 PM CDT Office Visit [facility] [address] [phone] Migue Reeder MD [address] [place] [phone] documented as of this encounter Visit Diagnoses Not on filedocumented in this encounter Additional Health Concerns Infection Onset Date Last Indicated Resolved Time 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 Care Teams Powder Hand Relationship Specialty Start Date End Date Toni Ravi MD [address] [place] [phone] PCP - General Internal Medicine 04/24/23 Jomar Noble MD [address] [phone] Hospitalist Internal Medicine 04/24/23 documented as of this encounter
--- OUTSIDE RECORDS SUMMARY | 2024-06-27 10:29 | XMS_ITS | Encounter Summary ---
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 Name Role Phone Toni Ravi MD Primary Care Provider [phone] Jomar Noble MD Unavailable Reason for Visit * Reason Comments Establish Care Encounter Details Date Type Department Care Team (Late st Contact Info) Description 04/24/2023 2:00 PM LEGAL MEDIATOR Office Visit [facility] [address] [place] [phone] Migue Reeder MD [address] [place] [phone] Thrombocytopenia, secondary (Primary Dx); Abnormal results [...] Comments Blood Pressure 113/71 04/24/2023 2:14 PM LEGAL MEDIATOR Pulse 88 04/24/2023 2:14 PM LEGAL MEDIATOR Temperature 36.9 ??C (98.5 ??F) 04/24/2023 2:14 PM CS T Respiratory Rate - - Oxygen Saturation 98% 04/24/2023 2:14 PM LEGAL MEDIATOR Inhaled Oxygen Concentration - - Weight 96.2 kg (212 lb) 04/24/2023 2:14 PM LEGAL MEDIATOR Height 190.5 cm (6' 3 ) 04/24/2023 2:14 PM LEGAL MEDIATOR Body Mass Index 26.5 04/24/2023 2:14 PM LEGAL MEDIATOR documented in this encounter Functional Status Functional [...] Migue Reeder MD - 04/24/2023 2:52 PM LEGAL MEDIATOR CBC, CMP, Peripheral review of smear, Vit B12, folate, copper, Acute hepatitis screen, HIV, ,Anti-platelet antibody (direct/indirect), MASSIEL with reflex. Avoid Nsaids F/u in 6-7 weeks with cbc + possible labs L MEDIATOR documented in this encounter Progress Notes * Stacie Viveros RN - 04/24/2023 2:26 PM CST BP 113/71 Pulse 88 Temp 98.5 ??F (36.9 ??C) (Temporal) Ht 1.905 m (6' 3 ) Wt 96.2 kg (212 lb) SpO2 98% Depression: PHQ-2:Patient Health Questionnaire-2 Score: 0 PHQ-9: Stacie Viveros RN 04/24/2023 2:26 PM L MEDIATOR * Migue Reeder MD - 04/24/2023 2:00 [...] had seizures was intubated and transferred to [facility] was treated with nicardipine complicated [...] results for input(s): LDH in the last 09281 hours. Pathology: Imagin08/24/21: Chest: ?? Lines/Tubes: Endotracheal [...] [place] [id number] with a mildly low white cell countof [...] intubated On Vimpat History of polysubstance abuse prison resident Plan: CBC, CMP, Peripheral review of smear, Vit B12, folate, copper, Acute hepatitis screen, HIV, ,Anti-platelet antibody (direct/indirect), MASSIEL with reflex. Avoid Nsaids F/u in 6-[address] Toni Ravi MD for allowing us to participate in the care of Mr. Chester Schustermanav Denis. Migue Reeder M.D. Hematology/Oncology [facility] L MEDIATOR documented in this encounter Plan of Treatment Upcoming Encounters Date Type Department Care Team (Late st Contact Info) Description 08/25/2024 1:10 PM CDT Documentation [facility] [address] [phone] 08/25/2024 1:20 PM CDT Office Visit [address] [phone] Migue Reeder MD [address] [place] [address] Scheduled Orders Name Type Priority Associated Diagnoses Orde r Schedule PLATELET ANTIBODY DIRECT+INDIRECT BATTERY PANEL Lab Routine Thrombocytopenia, secondary Ordered: 04/24/2023 documented as of this encounter Procedures Procedure Name Priority Date/Time Associated Diagnosis Comments HEPATITIS SCREEN ACUTE ([facility]) Routine 04/24/2023 3:19 PM LEGAL MEDIATOR Thrombocytopenia, secondary Abnormal results of liver function studies HCV PCR QUANT (NON GRAPH) REFLEXED Routine 04/24/2023 3:19 PM LEGAL MEDIATOR Thrombocytopenia, secondary Abnormal results of liver function studies HEMATOPATHOLOGY CONSULT Routine 04/24/20 3:19 PM LEGAL MEDIATOR Thrombocytopenia, secondary HIV-1 HIV-2 ANTIBODY + HIV P24 AG PANEL Routine 04/24/2023 3:19 PM LEGAL MEDIATOR Thrombocytopenia, secondary MASSIEL BLOOD SCREEN W/REFLEX TITER Routine 04/24/2023 3:19 PM LEGAL MEDIATOR Thrombocytopenia, secondary PLATELET ANTIBODY PANEL Routine 04/24/20 3:19 PM LEGAL MEDIATOR Thrombocytopenia, secondary COPPER BLOOD Routine 04/24/2023 3:19 PM LEGAL MEDIATOR Thrombocytopenia, secondary COMPREHENSIVE METABOLIC PANEL Routine 04/24/2023 3:19 PM LEGAL MEDIATOR Thrombocytopenia, secondary VITAMIN B12 FOLATE PANEL Routine 04/24/2023 3:19 PM LEGAL MEDIATOR Thrombocytopenia, secondary CBC W AUTO DIFFERENTIAL ([facility]) Routine 04/24/2023 3:17 PM LEGAL MEDIATOR Thrombocytopenia, secondary documented in this encounter Results * HCV PCR QUANT (NON GRAPH) REFLEXED (04/24/2023 3:19 PM LEGAL MEDIATOR) Hepatitis C Virus Quantitation HCV Not Detected [...] after one month. 04/24/2023 3:1 9 PM LEGAL MEDIATOR 04/24/2023 Narrative Resulting Agency Comment Lab Testing performed at: [facility] [place] [address] [facility] ??[facility] [id number] Migue Reeder MD LAB - SEROLOGY ORDER WILLIAN [facility] INSURANCE BILL [address] [place] [address] * (ABNORMAL) HEPATITIS SCREEN ACUTE ([facility]) (04/24/2023 3:19 PM LEGAL MEDIATOR) Hepatitis A Virus Antibody IgM Negative Negative [facility] INSURANCE BILL Hepatitis B Virus Surface Antigen Negative Negative [facility] INSURANCE BILL Hepatitis B Core Virus Antibody IgM Negative Negative [facility] INSURANCE BILL Hepatitis C Antibody Reactive(A) Non Reactive [facility] INSURANCE BILL Blood BLOOD SPECIMEN / Unknown 04/24/2023 3:19 PM LEGAL MEDIATOR 04/24/2023 Narrative Resulting Agency Comment Lab Testing performed at: [facility] [place] [address] [facility] ??[facility] [id number] Migue Reeder MD LAB - CHEMISTRY MIGUEL GOLD Performing Organization Address City/[facility]/ZIP Co de Phone Number [facility] INSURANCE BILL [address] [place] [address] * PLATELET ANTIBODY PANEL (04/24/2023 3:19 PM LEGAL MEDIATOR) HLA Class I Antibody Negative Negative [facility] INSURANCE BILL IIb/IIIa Antibody Negative Negative [facility] INSURANCE BILL Ib/IX Antibody Negative Negative [facility] INSURANCE BILL Ia/IIa Antibody Negative Negative [facility] INSURANCE BILL Glycoprotein IV Antibody Negative Negative [facility] INSURANCE BILL Blood BLOOD SPECIMEN / Unknown 04/24/2023 3:19 PM LEGAL MEDIATOR 04/24/2023 Narrative Resulting Agency Comment Lab Testing performed at: [facility] [place] [address] [address] [facility] ??[facility] [id number] Migue Reeder MD LAB - CHEMISTRY MIGUEL GOLD [facility] INSURANCE BILL [address] [place] [address] * MASSIEL BLOOD SCREEN W/REFLEX TITER (04/24/2023 3:19 PM LEGAL MEDIATOR) Pathologist [facility] MASSIEL Negative [facility] INSURANCE BILL Comment: ?Negative ?? <1:80 ?Borderline ??1:80 ?Positive ?? >1:80 ICAP nomenclature: AC-0 For more information about Hep-2 cell patterns use ANApatterns.org, the official website for the International Consensus on Antinuclear Antibody (MASSIEL) Patterns (ICAP). Blood BLOOD SPECIMEN / Unknown 04/24/2023 3:19 PM LEGAL MEDIATOR 04/24/2023 Narrative Resulting Agency Comment Lab Testing performed at: [address] ??[facility] [id number] Migue Reeder MD LAB - CHEMISTRY MIGUEL GOLD [facility] INSURANCE BILL [address] [place] [address] * HIV-1 HIV-2 ANTIBODY + HIV P24 AG PANEL (04/24/2023 3:19 PM LEGAL MEDIATOR) Pathologist [facility] HIV Screen 4th Generation w Reflex Non Reactive Non Reactive [facility] INSURANCE BILL Comment: HIV Negative HIV-1/HIV-2 antibodies and HIV-1 p24 antigen were NOT detected. There is no laboratory evidence of HIV infection. Blood BLOOD SPECIMEN / Unknown 04/24/2023 3:19 PM LEGAL MEDIATOR 04/24/2023 Narrative Resulting Agency Comment [facility]: [facility] [address] [facility] ??[facility] [id number] Migue Reeder MD LAB - CHEMISTRY MIGUEL GOLD Performing Organization Address [facility]/ZIP Co de Phone Number [facility] INSURANCE BILL [address] [place] [address] * COPPER BLOOD (04/24/2023 3:19 PM LEGAL MEDIATOR) Copper 95 69 - 132 ug/dL [facility] INSURANCE BILL Comment:Detection Limit = 5 Blood BLOOD SPECIMEN / Unknown 04/24/2023 3:19 PM LEGAL MEDIATOR 04/24/2023 Narrative [facility] INSURANCE BILL - 05/03/2023 3:35 AM LEGAL MEDIATOR Test(s) [id number], Serum or Plasma was developed and its performance characteristics determined by [employer]. It has not been cleared or approved by the Food and Drug Administration. Resulting Agency Comment Lab Testing performed at: [address] ??[facility] [id number] Migue Reeder MD LAB - CHEMISTRY MIGUEL GOLD Performing Organization Address [facility] Co de Phone Number [facility] INSURANCE BILL [address] [place] [address] * VITAMIN B12 FOLATE PANEL (04/24/2023 3:19 PM LEGAL MEDIATOR) Vitamin B12 604 232 - 1,245 pg/mL [facility] INSURANCE BILL Folate 6.5 >3.0 ng/mL [facility] INSURANCE BILL Comment: A serum folate concentration of less than 3.1 ng/mL is considered to represent clinical deficiency. Blood BLOOD SPECIMEN / Unknown 04/24/2023 3:19 PM LEGAL MEDIATOR 04/24/2023 Narrative Resulting Agency Comment Lab Testing performed at: [facility] [address] [facility] ??[facility] [id number] Migue Reeder MD LAB - CHEMISTRY MIGUEL GOLD [facility] INSURANCE BILL [address] [place] [address] * (ABNORMAL) HEMATOPATHOLOGY CONSULT (04/24/2023 3:19 PM LEGAL MEDIATOR) WBC Morph Appear normal. [facility] INSURANCE BILL [...] BLOOD SPECIMEN / Unknown 04/24/2023 3:19 PM LEGAL MEDIATOR 04/24/2023 Narrative Resulting Agency Comment Lab Testing performed at: [facility] [address] [facility] [address] ??[place] [id number] Migue Reeder MD LAB - PATHOLOGY/CYTO LOGY ORDERABLES [facility] INSURANCE BILL [address] [place] [address] * (ABNORMAL) COMPREHENSIVE METABOLIC PANEL (04/24/2023 3:19 PM LEGAL MEDIATOR) Glucose 87 70 - 99 mg/dL [facility] [...] BLOOD SPECIMEN / Unknown 04/24/2023 3:19 PM LEGAL MEDIATOR 04/24/2023 Narrative Resulting Agency Comment Lab Testing performed at: [place] [id number] [facility] ??[facility] [id number] Migue Reeder MD LAB - CHEMISTRY MIGUEL GOLD [facility] INSURANCE BILL [address] [place] [address] * (ABNORMAL) CBC W AUTO DIFFERENTIAL ([facility]) (04/24/2023 3:17 PM LEGAL MEDIATOR) WBC 4.9 4.4 - 10.7 x10E9/L 04/24/2023 3:22 PM LEGAL MEDIATOR [facility] Neutrophils % 62.5 44.0 - 73.0 % 04/24/2023 3:22 PM LEGAL MEDIATOR [facility] Lymphocytes % 24.0 20.0 - 43.0 % 04/24/2023 3:22 PM LEGAL MEDIATOR [facility] Monocytes % 11.1 5.0 - 13.0 % 04/24/2023 3:22 PM LEGAL MEDIATOR [facility] Eosinophils % 2.0 0.0 - 6.0 % 04/24/2023 3:22 PM LEGAL MEDIATOR [facility] Basophils % 0.4 0.0 - 2.0 % 04/24/2023 3:22 PM LEGAL MEDIATOR [facility] Neutrophil Absolute 3.05 2.01 - 7.14 x10E9/L 04/24/2023 3:22 PM LEGAL MEDIATOR [facility] Lymphocytes Absolute 1.17 1.07 - 3.94 x10E9/L 04/24/2023 3:22 PM LEGAL MEDIATOR [facility] Monocytes Absolute 0.54 0.26 - 1.07 x10E9/L 04/24/2023 3:22 PM LEGAL MEDIATOR [facility] Eosinophils Absolute 0.10 0 - 0.47 x10E9/L 04/24/2023 3:22 PM LEGAL MEDIATOR [facility] Basophils Absolute 0.02 0 - 0.08 x10E9/L 04/24/2023 3:22 PM LEGAL MEDIATOR [facility] RBC 3.97 3.80 - 5.40 x10E12/L 04/24/2023 3:22 PM LEGAL MEDIATOR [facility] Hemoglobin 13.0 12.0 - 17.6 gm/dL 04/24/2023 3:22 PM LEGAL MEDIATOR [facility] Hematocrit 37.8 35.2 - 51.7 % 04/24/2023 3:22 PM LEGAL MEDIATOR [facility] MCV 95.2 80.7 - 98.3 fl 04/24/2023 3:22 PM LEGAL MEDIATOR [facility] MCH 32.7 26.7 - 34.0 pg 04/24/2023 3:22 PM LEGAL MEDIATOR [facility] MCHC 34.4 30.8 - 35.9 gm/dL 04/24/2023 3:22 PM LEGAL MEDIATOR [facility] RDW-CV 13.6 12.1 - 14.9 % 04/24/2023 3:22 PM LEGAL MEDIATOR [facility] Platelet Count 81(L) 153 - 416 x10E9/L 04/24/2023 3:22 PM LEGAL MEDIATOR [facility] MPV 9.8 9.4 - 12.9 fl 04/24/2023 3:22 PM LEGAL MEDIATOR [facility] Blood BLOOD SPECIMEN / Unknown 04/24/2023 3:17 PM LEGAL MEDIATOR 04/24/2023 3:17 PM LEGAL MEDIATOR Narrative [facility] - 04/24/2023 3:22 PM LEGAL MEDIATOR Cancer Care protocol. Automated differential only. ??Manual differential performed upon provider's request. 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
--- OUTSIDE RECORDS SUMMARY | 2024-06-27 10:29 | XMS_ITS | Patient Health Summary ---
Author Organization [facility] Address [address] [facility] [place] [address] Care Team Providers Care Fire Watcher Name Role Phone Toni Ravi MD Primary Care Provider [phone] Jomar Noble MD Unavailable Note from [facility],non-owned Affiliates and Associated Physician Practices is amultiple site organization consisting of ambulatory clinics and hospital sitesin [place], [place], [place] and [place]. This disclosure is being madepursuant to the Care Everywhere program and may not contain all information available regarding this patient. Last updated 18.[facility] Allergies No known active allergies Medications * [...] once daily 5 refills by 06/20/2024 * [place]-3 Fatty Acids (fish oil) 500 MG capsule [...] PM CDT Medical Devices Implanted Type Area Drug And Alcohol Treatment Specialist Device Identifier Shelf Expiration Date Model / Serial / Lot Plate 59.5x24.4mm 4 Hl Lopro Fx Ang Wire Implanted:Qty: 1 on 10/15/2018 by Maciel Greer MD at [facility] Left: Arm [employer] DVRAL / / Peg Fx 2.5mm 22mm Ft Hand Lck Screw F3 Implanted:Qty: 3 on 10/15/2018 by Maciel Greer MD at [facility] Left: Arm [employer] FP22 / / Peg Thread Multidir2.5x18mm Multidirectional Threaded Pegs Implanted:Qty: 1 on 10/15/2018 by Maciel Greer MD at [facility] Left: Arm [employer] [id number] / / Peg Thread Multidir2.5x20mm Multidirectional Threaded Peg Implanted:Qty: 1 on 10/15/2018 by Maciel Greer MD at [facility] Left: Arm [employer] [id number] / / Screw Cortical 3.5 X14mm Cortical Screws Implanted:Qty: 1 on 10/15/2018 by Maciel Greer MD at [facility] Left: Arm [employer] [id number] / / Screw 3.5mm 16mm Beck Ti Nonster Dvr Implanted:Qty: 2 on 10/15/2018 by Maciel Greer MD at [facility] Left: Arm [employer] [id number] / / Explanted Type Area Drug And Alcohol Treatment Specialist Device Identifier Shelf Expiration Date Model / Serial / Lot Wire K 1.6mm Ss Fx Nonster Explanted:Qty: 3 on 10/15/2018 by Maciel Greer MD at [facility] Left: Arm [employer] [id number] / / Screw 3.5mm 13mm Beck Ti Nonster Dvr Explanted:Qty: 1 on 10/15/2018 by Maciel Greer MD at [facility] Left: Arm [employer] [id number] / / Procedures * COMPREHENSIVE METABOLIC PANEL(Performed [...] Performed for Intentional drug overdose, 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 ([facility]) * CT ANGIO BRAIN AND NECK(Performed 08/24/2021) Performed for Intentional drug overdose, 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 ([facility]) * CT BRAIN STROKE(Performed 08/24/2021) Performed for Intentional drug overdose, 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 ([facility]) * PT EVAL AND TREAT(Performed 08/24/2021) [...] Resulting Agency Comment Lab Testing performed at: [address] ??[facility] [phone] Migue Reeder MD LAB - CHEMISTRY MIGUEL GOLD Performing Organization Address City/[facility]/ZIP Co de Phone Number [facility] INSURANCE BILL [address] [place] [address] * VITAMIN B12 FOLATE PANEL (02/25/2024 2:09 PM CDT) Only the most recent of3 resultswithin the time period is included. [facility] Vitamin B12 789 213 - 816 pg/mL [facility] INSURANCE BILL Folate 12.3 7.0 - 31.4 ng/mL [facility] INSURANCE BILL Blood BLOOD SPECIMEN / Unknown 02/25/2024 2:09 PM CDT 02/25/2024 Narrative Resulting Agency Comment Lab Testing performed at: [address] ??[facility] [id number] Migue Reeder MD LAB - CHEMISTRY MIGUEL GOLD Performing Organization Address [facility] Co de Phone Number [facility] INSURANCE BILL [address] [place] [address] * (ABNORMAL) CBC W AUTO DIFFERENTIAL ([facility]) (02/25/2024 1:15 PM CDT) Only the most recent of4 resultswithin the time period is included. Pathologist [facility] WBC 3.5(L) 4.4 - 10.7 x10E9/L 02/25/2024 1:32 PM CDT [facility] Neutrophils % 51.3 44.0 - 73.0 % 02/25/2024 1:32 PM CDT [facility] Lymphocytes % 35.6 20.0 - 43.0 % 02/25/2024 1:32 PM CDT [facility] Monocytes % 9.1 5.0 - 13.0 % 02/25/2024 1:32 PM CDT [facility] Eosinophils % 3.1 0.0 - 6.0 % 02/25/2024 1:32 PM CDT [facility] Basophils % 0.9 0.0 - 2.0 % 02/25/2024 1:32 PM CDT [facility] Neutrophil Absolute 1.80(L) 2.01 - 7.14 x10E9/L 02/25/2024 1:32 PM CDT [facility] Lymphocytes Absolute 1.25 1.07 - 3.94 x10E9/L 02/25/2024 1:32 PM CDT [facility] Monocytes Absolute 0.32 0.26 - 1.07 x10E9/L 02/25/2024 1:32 PM CDT [facility] Eosinophils Absolute 0.11 0 - 0.47 x10E9/L 02/25/2024 1:32 PM CDT [facility] Basophils Absolute 0.03 0 - 0.08 x10E9/L 02/25/2024 1:32 PM CDT [facility] RBC 4.36 3.80 - 5.40 x10E12/L 02/25/2024 1:32 PM CDT [facility] Hemoglobin 14.4 12.0 - 17.6 gm/dL 02/25/2024 1:32 PM CDT [facility] Hematocrit 41.4 35.2 - 51.7 % 02/25/2024 1:32 PM CDT [facility] MCV 95.0 80.7 - 98.3 fl 02/25/2024 1:32 PM CDT [facility] MCH 33.0 26.7 - 34.0 pg 02/25/2024 1:32 PM CDT [facility] MCHC 34.8 30.8 - 35.9 gm/dL 02/25/2024 1:32 PM CDT [facility] RDW-CV 13.7 12.1 - 14.9 % 02/25/2024 1:32 PM CDT [facility] Platelet Count 80(L) 153 - 416 x10E9/L 02/25/2024 1:32 PM CDT [facility] MPV 9.8 9.4 - 12.9 fl 02/25/2024 1:32 PM CDT [facility] CC LAB [facility] Blood BLOOD SPECIMEN / Unknown 02/25/2024 1:15 PM CDT 02/25/2024 1:15 PM CDT Narrative [facility] CC LAB [facility] - 02/25/2024 1:32 PM CDT [facility] protocol. Automated differential only. ??Manual differential performed upon provider's request. Thrombocytopenia Migue Reeder MD LAB - HEMATOLOGY ORD ERABLES [facility] CC [facility] [address] [facility],[address] [address] * (ABNORMAL) HEPATITIS SCREEN ACUTE ([facility]) (04/24/2023 3:19 PM PROPERTY STAFF ACCOUNTANT) Pathologist [facility] Hepatitis A Virus Antibody IgM Negative Negative [facility] INSURANCE BILL Hepatitis B Virus Surface Antigen Negative Negative [facility] INSURANCE BILL Hepatitis B Core Virus Antibody IgM Negative Negative [facility] INSURANCE BILL Hepatitis C Antibody Reactive(A) Non Reactive [facility] INSURANCE BILL Blood BLOOD SPECIMEN / Unknown 04/24/2023 3:19 PM PROPERTY STAFF ACCOUNTANT 04/24/2023 Narrative Resulting Agency Comment [facility] [address] [facility] [id number] Migue Reeder MD LAB - CHEMISTRY ORDE RABEMILE Performing Organization Address City/[facility]/ZIP Co de Phone Number [facility] INSURANCE BILL [address] [place] [address] * HCV PCR QUANT (NON GRAPH) REFLEXED (04/24/2023 3:19 PM PROPERTY STAFF ACCOUNTANT) Pathologist [facility] Hepatitis C Virus Quantitation HCV Not Detected [...] testing after one month. 04/24/2023 3:19 PM PROPERTY STAFF ACCOUNTANT 04/24/2023 Narrative Resulting Agency Comment Lab Testing performed at: [facility] ??[facility] [phone] Migue Reeder MD LAB - SEROLOGY ORDER WILLIAN [facility] INSURANCE BILL [address] [place] [address] * (ABNORMAL) HEMATOPATHOLOGY CONSULT (04/24/2023 3:19 PM PROPERTY STAFF ACCOUNTANT) WBC Morph Appear normal. [facility] INSURANCE BILL [...] BLOOD SPECIMEN / Unknown 04/24/2023 3:19 PM PROPERTY STAFF ACCOUNTANT 04/24/2023 Narrative Resulting Agency Comment Lab Testing performed at: [facility] [address] [facility] [address] ??[place] [id number] Migue Reeder MD LAB - PATHOLOGY/CYTO LOGY ORDERABLES [facility] INSURANCE BILL [address] [place] [address] * HIV-1 HIV-2 ANTIBODY + HIV P24 AG PANEL (04/24/2023 3:19 PM PROPERTY STAFF ACCOUNTANT) Only the most recent of2 resultswithin the time period is included. HIV Screen 4th Generation w Reflex Non Reactive Non Reactive [facility] INSURANCE BILL Comment: HIV Negative HIV-1/HIV-2 antibodies and HIV-1 p24 antigen were NOT detected. There is no laboratory evidence of HIV infection. Blood BLOOD SPECIMEN / Unknown 04/24/2023 3:19 PM PROPERTY STAFF ACCOUNTANT 04/24/2023 Narrative Resulting Agency Comment [facility]: [facility] [address] ??[place] [id number] Migue Reeder MD LAB - CHEMISTRY MIGUEL GOLD [facility] [address] [place] [address] * MASSIEL BLOOD SCREEN W/REFLEX TITER (04/24/2023 3:19 PM PROPERTY STAFF ACCOUNTANT) MASSIEL Negative [facility] INSURANCE BILL Comment: ?Negative ?? <1:80 ?Borderline ??1:80 ?Positive ?? >1:80 ICAP nomenclature: AC-0 For more information about Hep-2 cell patterns use ANApatterns.org, the official website for the International Consensus on Antinuclear Antibody (MASSIEL) Patterns (ICAP). Blood BLOOD SPECIMEN / Unknown 04/24/2023 3:19 PM PROPERTY STAFF ACCOUNTANT 04/24/2023 Narrative Resulting Agency Comment Lab Testing performed [facility]: [facility] [address] [facility] ??[place] [id number] Migue Reeder MD LAB - CHEMISTRY MIGUEL GOLD [facility] INSURANCE BILL [address] [facility] [place] [place] [address] * PLATELET ANTIBODY PANEL (04/24/2023 3:19 PM PROPERTY STAFF ACCOUNTANT) HLA Class I Antibody Negative Negative [facility] INSURANCE BILL IIb/IIIa Antibody Negative Negative [facility] INSURANCE BILL Ib/IX Antibody Negative Negative [facility] INSURANCE BILL Ia/IIa Antibody Negative Negative [facility] INSURANCE BILL Glycoprotein IV Antibody Negative Negative [facility] INSURANCE BILL Blood BLOOD SPECIMEN / Unknown 04/24/2023 3:19 PM PROPERTY STAFF ACCOUNTANT 04/24/2023 Narrative Resulting Agency Comment Lab Testing performed at: [address] ??[facility] [id number] Migue Reeder MD LAB - CHEMISTRY MIGUEL GOLD Performing Organization Address City/[facility]/ZIP Co de Phone Number [facility] INSURANCE BILL [address] [place] [address] * COPPER BLOOD (04/24/2023 3:19 PM PROPERTY STAFF ACCOUNTANT) Pathologist [facility] Copper 95 69 - 132 ug/dL [facility] INSURANCE BILL Comment:Detection Limit = 5 Blood BLOOD SPECIMEN / Unknown 04/24/2023 3:19 PM PROPERTY STAFF ACCOUNTANT 04/24/2023 Narrative [facility] INSURANCE BILL - 05/03/2023 3:35 AM PROPERTY STAFF ACCOUNTANT Test(s) 428143-[id number], Serum or Plasma was developed and its performance characteristics determined by [employer]. It has not been cleared or approved by the Food and Drug Administration. Resulting Agency Comment Lab Testing performed at: [address] ??[facility] [id number] Migue Reeder MD LAB - CHEMISTRY MIGUEL GOLD Performing Organization Address City/[facility]/ZIP Co de Phone Number [facility] INSURANCE BILL [address] [place] [address] * IR CAROTID CEREBRAL ANGIOGRAM (11/17/2021 11:06 [...] angiogram toevaluate for possible underlying vascular abnormality. Pricing Supervisor: Rivera Villagomez Agile Business Analyst(s): Ida Arevalo Vessels: Ultrasound guided access of [...] patient evaluation, please review the evaluation in [facility]. For details on monitored clinical parameters during the intra-service sedation time, please review the procedure nurse documentation in [facility]. Procedural detail: The risks, benefits, and [...] Following a series of exchanges, a 5 Gabonese Slender Glidesheath was placed in the right radial artery. Heparin 3,000 units, verapamil 2.5 mg and nitroglycerin 300 mcg were given through the sheath for vasospasm prophylaxis. A 5 Gabonese Cain 2 catheter was navigated into the [...] angiogram toevaluate for possible underlying vascular abnormality. Pricing Supervisor: Rivera Villagomez Agile Business Analyst(s): Ida Arevalo Vessels: Ultrasound guided access of [...] patient evaluation, please review the evaluation in [facility]. For details on monitored clinical parameters during the intra-servicesedation time, please review the procedure nurse documentation in [facility]. Procedural detail: The risks, benefits, and [...] documented. Following aseries of exchanges, a 5 Gabonese Slender Glidesheath was placed in the right radial artery. Heparin 3,000 units, verapamil 2.5 mg and [id number] mcg were given through the sheath for vasospasm prophylaxis. A 5 Gabonese Sosh 2 catheter was navigated into the aortic [...] Villagomez MD IR ORDERABLES * (ABNORMAL) PT-INR [facility] (11/17/2021 8:23 AM CDT) Only the most recent of13 resultswithin the time period is included. PT 16.8(H) 12.1 - 14.8 Seconds 11/17/2021 8:54 AM T [facility] INR 1.4 See Comment 11/17/2021 8:54 AM [facility] Comment:The suggested therap eutic range for standard coumadin (warfarin) therapy is an INR of 2.0-3.0. For high-risk patients (Mechanical Mitral Valve Prosthesis, etc.), the suggested prophylactic therapeutic range is an INR of 2.5-3.5. Blood BLOOD SPECIMEN / Unknown Venipuncture / Unknown 11/17/2021 8:23 AM CDT 11/17/2021 8:33 AM CDT Valdo Arevalo MD LAB - COAGULATION OR DERABLES [facility] [address] [place] [address], [facility] [phone] * (ABNORMAL) CBC W AUTO DIFFERENTIAL (11/17/2021 8:23 AM CDT) Only the most recent of19 resultswithin the time period is included. WBC 4.5 3.5 - 10.5 10? 3 /uL 11/17/2021 8:38 AM [facility] RBC 4.01(L) 4.30 - 5.70 10? 6 /uL 11/17/2021 8:38 AM [facility] Hemoglobin 12.6 12.0 - 17.6 g/dL 11/17/2021 8:38 AM [facility] Hematocrit 37.9 35.2 - 51.7 % 11/17/2021 8:38 AM [facility] MCV 94.5 80.7 - 98.3 fL 11/17/2021 8:38 AM [facility] MCH 31.4 26.7 - 34.0 pg 11/17/2021 8:38 AM [facility] MCHC 33.2 30.8 - 35.9 g/dL 11/17/2021 8:38 AM [facility] Platelet Count 126(L) 150 - 400 10? 3 /uL 11/17/2021 8:38 AM [facility] RDW-SD 48.1 36.0 - 50.0 fL 11/17/2021 8:38 AM [facility] RDW-CV 13.9 11.2 - 14.8 % 11/17/2021 8:38 AM [facility] MPV 9.5 9.4 - 12.9 fL 11/17/2021 8:38 AM [facility] nRBC Absolute 0.00 0 10? 3 /uL 11/17/2021 8:38 AM [facility] nRBC Auto 0.0 0 /100 WBC 11/17/2021 8:38 AM [facility] Neutrophils % 64.4 35.0 - 70.0 % 11/17/2021 8:38 AM [facility] Lymphocytes % 19.1(L) 20.0 - 43.0 % 11/17/2021 8:38 AM [facility] Monocytes % 13.0 5.0 - 13.0 % 11/17/2021 8:38 AM [facility] Eosinophils % 2.2 0.0 - 6.0 % 11/17/2021 8:38 AM [facility] Basophil % 1.1 0.0 - 2.0 % 11/17/2021 8:38 AM [facility] Neutrophils Absolute 2.9 1.6 - 7.0 10? 3 /uL 11/17/2021 8:38 AM [facility] Lymphocyte Absolute 0.9(L) 1.1 - 3.9 10? 3 /uL 11/17/2021 8:38 AM [facility] Monocytes Absolute 0.58 0.26 - 1.07 10? 3 /uL 11/17/2021 8:38 AM [facility] Eosinophils Absolute 0.10 0.00 - 0.47 10? 3 /uL 11/17/2021 8:38 AM [facility] Basophils Absolute 0.05 0.00 - 0.08 10? 3 /uL 11/17/2021 8:38 AM [facility] Immature Granulocytes % 0.2 0.0 - 1.0 % 11/17/2021 8:38 AM [facility] Immature Granulocytes Absolute 0.01 11/17/2021 8:38 AM [facility] Blood BLOOD SPECIMEN / Unknown Venipuncture / Unknown 11/17/2021 8:23 AM T 11/17/2021 8:[address] [facility] Valdo Arevalo MD LAB - HEMATOLOGY ORD ERABLES [facility] [address] [place] [address], [facility] [phone] * (ABNORMAL) BASIC METABOLIC PANEL (CALCIUM TOTAL) (11/17/2021 8:[address] [facility]) Only the most recent of34 resultswithin the time period is included. BUN 9 7 - 26 mg/dL 11/17/2021 9:00 AM [facility] Creatinine 0.62(L) 0.71 - 1.16 mg/dL 11/17/2021 9:00 AM [facility] Sodium 141 136 - 145 mmol/L 11/17/2021 9:00 AM [facility] Potassium 4.1 3.5 - 4.5 mmol/L 11/17/2021 9:00 AM [facility] Chloride 112(H) 98 - 107 mmol/L 11/17/2021 9:00 AM [facility] CO2 23 22 - 29 mmol/L 11/17/2021 9:00 AM [facility] Glucose 134(H) 70 - 115 mg/dL 11/17/2021 9:00 AM [facility] Calcium 8.7 8.4 - 10.2 mg/dL 11/17/2021 9:00 AM [facility] Anion Gap 10 8 - 18 11/17/2021 9:00 AM [facility] BUN/Creatinine Ratio 15 7 - 23 11/17/2021 9:00 AM [facility] Osmolality Calculated 293 270 - 300 mOsm/kg 11/17/2021 9:00 AM [facility] eGFR by CKD-EPI >90 >=90 mL/min/1.7 3 m2 11/17/2021 9:00 AM [facility] Blood BLOOD SPECIMEN / Unknown Venipuncture / Unknown 11/17/2021 8:23 AM CDT 11/17/2021 8:[address] [facility] Valdo Arevalo MD LAB - CHEMISTRY MIGUEL Guardado Organization Address City/State/ZIP Co de Phone Number [facility] [address] [place] [address], [facility] [phone] * CARDIAC EKG ORDER (09/21/2021 11:06 AM CDT) Only the most recent of6 resultswithin the time period is included. Narrative 09/21/2021 11:06 AM CDT Ordered by an unspecified provider. Scanned Document CARDIAC SERVICES ORD ERABLES * SARS-COV-2 (COVID-19) RAPID (09/13/2021 3:50 PM CDT) COVID-19 PCR Not detected Not detected 09/14/19 4:42 PM CDT [facility] Microbiology SPECIMEN FROM NASOPHARYNGEAL STRUCTURE / Unknown Collection / Unknown 09/13/2021 3:50 PM CDT 09/13/2021 3:59 PM CDT Narrative [facility] - 09/13/2021 4:42 PM CDT The [employer] 360 Xpert Xpress SARS-COV-2 has been authorized by [...] III, MD LAB - MICROBIOLO GY ORDERABLES [facility] [address] [place] [address], [facility] [phone] * (ABNORMAL) CBC W/O DIFFERENTIAL (09/13/2021 7:53 AM CDT) Only the most recent of17 resultswithin the time period is included. WBC 4.8 3.5 - 10.5 10? 3 /uL 09/13/2021 8:24 AM [facility] RBC 3.25(L) 4.30 - 5.70 10? 6 /uL 09/13/2021 8:24 AM [facility] Hemoglobin 10.4(L) 12.0 - 17.6 g/dL 09/13/2021 8:24 AM [facility] Hematocrit 31.0(L) 35.2 - 51.7 % 09/13/2021 8:24 AM [facility] MCV 95.4 80.7 - 98.3 fL 09/13/2021 8:24 AM [facility] MCH 32.0 26.7 - 34.0 pg 09/13/2021 8:24 AM [facility] MCHC 33.5 30.8 - 35.9 g/dL 09/13/2021 8:24 AM [facility] Platelet Count 122(L) 150 - 400 10? 3 /uL 09/13/2021 8:24 AM [facility] RDW-SD 56.3(H) 36.0 - 50.0 fL 09/13/2021 8:24 AM [facility] RDW-CV 16.4(H) 11.2 - 14.8 % 09/13/2021 8:24 AM [facility] MPV 9.4 9.4 - 12.9 fL 09/13/2021 8:24 AM [facility] nRBC Absolute 0.00 0 10? 3 /uL 09/13/2021 8:24 AM [facility] nRBC Auto 0.0 0 /100 WBC 09/13/2021 8:24 AM [facility] Blood BLOOD SPECIMEN / Unknown Lab Venipuncture / Unknown 09/13/2021 7:53 AM CDT 09/13/2021 8:17 AM T Valdo Arevalo MD LAB - HEMATOLOGY ORD ERABLES [facility] [address] [address], [facility] [phone] * PHOSPHORUS BLOOD (09/13/2021 7:53 AM CDT) Only the most recent of28 resultswithin the time period is included. Phosphorus 3.5 2.8 - 5.1 mg/dL 09/13/2021 8:50 AM CDT [facility] Blood BLOOD SPECIMEN / Unknown Lab Venipuncture / Unknown 09/13/2021 7:53 AM CDT 09/13/2021 8:17 AM CDT Valdo Arevalo MD LAB - CHEMISTRY MIGUEL GOLD [address] [address], [facility] [phone] * MAGNESIUM BLOOD (09/13/2021 7:53 AM CDT) Only the most recent of28 resultswithin the time period is included. [facility] Magnesium 1.7 1.6 - 2.6 mg/dL 09/13/2021 8:50 AM CDT [facility] Blood BLOOD SPECIMEN / Unknown Lab Venipuncture / Unknown 09/13/2021 7:53 AM CDT 09/13/2021 8:17 AM CDT Valdo Arevalo MD LAB - CHEMISTRY MIGUEL GOLD Performing Organization Address City/[facility]/ZIP Co de Phone Number [address] [address], [facility] [phone] * EKG 12-LEAD (09/08/2021 5:56 AM CDT) Only the most recent of10 resultswithin the time period is included. Ventricular Rate 81 BPM [facility] Atrial Rate 81 BPM [facility] P-R Interval 150 ms [facility] QRS Duration ms 84 ms [facility] Q-T Interval ms 406 ms [facility] QTC Calculation (Bezet) 471 ms [facility] Calculated P [place] 31 degrees [facility] Calculated R [place] 27 degrees [facility] Calculated T [place] 36 degrees [facility] Interpretation EKG SINUS RHYTHM WITH FREQUENT PREMATURE VENTRICULAR COMPLEXES OTHERWISE NORMAL ECG WHEN COMPARED WITH ECG OF 07-SEP-2021 11:21 POOR R WAVE PROGRESSION IS NO LONGER PRESENT Confirmed by Rod Friedman ([id number]) on 09/09/2021 3:18:27 PM [facility] 09/08/2021 5:56 AM CDT 09/09/2021 3:18 PM CDT Valdo Arevalo MD ECG ORDERABLES Performing Organization Address City/[facility]/ZIP Co de Phone Number [facility] * AMMONIA (09/01/2021 12:06 AM CDT) Only the most recent of3 resultswithin the time period is included. Ammonia 24 <=72 umol/L 09/01/2021 12:23 AM CDT [facility] Blood BLOOD SPECIMEN / Unknown Venipuncture / Unknown 09/01/2021 12:06 AM CDT 09/01/2021 12:12 AM CDT Summer Villagomez MD LAB - CHEMISTRY ORD ERABLES Performing Organization Address City/[facility]/ZIP Co de Phone Number [facility] [address] [phone] [phone] * XR ABDOMEN KUB PORTABLE (08/31/2021 9:07 [...] Report dictated by Jose R Bess M.D. (secretary to the vice president). I, Dr. HALIMA HERRERA MD have personally [...] Report dictated by Jose R Bess M.D. (secretary to the vice president). I, Dr. HALIMA HERRERA MD have personally reviewed and interpreted this examination/study. This report was electronically signed by HALIMA HERRERA MD on 09/01/2021 1:17 PM . Summer Villagomez MD DIAGNOSTIC IMAGING ORDERABLES * (ABNORMAL) CULTURE SPUTUM+GRAM STAIN (08/27/2021 5:05 PM PROPERTY STAFF ACCOUNTANT) Only the most recent of2 resultswithin the time period is included. Culture Heavy Staphylococcus aureus methicillin-resista nt (MRSA)(A) MANJIT 08/30/2021 1:38 AM T [facility] Comment:Staphylococcus aureu s methicillin-resistant (MRSA) detected by penicillin binding protein immunoassay. Contact precautions required. Conventional antibiotic susceptibility testing to follow. Culture Light normal oropharyngeal izabella MANJIT 08/30/2021 1:38 AM CDT [facility] Gram Stain Heavy Gram-positive cocci 08/30/2021 1:38 AM CDT [facility] Gram Stain >= 25 per low power field Polymorphonuclear cells 08/30/2021 1:38 AM CDT [facility] Gram Stain <10 per low power field Squamous epithelial cells 08/30/2021 1:38 AM T [facility]CRO[facility] Microbiology SPUTUM / Unknown Collection / Unknown 08/27/2021 5:05 PM PROPERTY STAFF ACCOUNTANT 08/27/2021 5:15 PM PROPERTY STAFF ACCOUNTANT Narrative [facility]CRO[facility] - 08/30/2021 1:38 AM [...] Summer Villagomez MD LAB - MICROBIOLOGY ORDERABLES [facility] MICROBIOLOGY [address] [place], [address] [phone] * (ABNORMAL) URINALYSIS REFLEX TO MICROSCOPIC NO CULTURE (08/27/2021 5:05 PM PROPERTY STAFF ACCOUNTANT) Only the most recent of2 resultswithin the time period is included. Color UA Kristi(A) Straw, Yellow 08/27/2021 5:38 PM [facility] Clarity UA Slt Cloudy(A) Clear 08/27/2021 5:38 PM [facility] Specific [place] UA 1.035(H) 1.005 - 1.030 08/27/2021 5:38 PM [facility] pH UA 6.0 5.0 - 8.0 pH 08/27/2021 5:38 PM [facility] Protein UA 1+(A) Negative 08/27/2021 5:38 PM [facility] Glucose UA Negative Negative 08/27/2021 5:38 PM [facility] Ketone UA Negative Negative 08/27/2021 5:38 PM [facility] Bilirubin UA Negative Negative 08/27/2021 5:38 PM [facility] Blood UA 3+(A) Negative 08/27/2021 5:38 PM [facility] Nitrite UA Negative Negative 08/27/2021 5:38 PM [facility] Leukocyte Esterase Negative Negative 08/27/2021 5:38 PM [facility] Urobilinogen UA 4.0(A) Negative mg/dL 08/27/2021 5:38 PM [facility] RBC UA >100(A) None Seen, 0-2, 3-5 /HPF 08/27/2021 5:38 PM [facility] WBC UA 0-5 None Seen, 0-5 /HPF 08/27/2021 5:38 PM [facility] Bacteria UA Trace(A) None /HPF 08/27/2021 5:38 PM [facility] Squamous Epithelial Cells UA None Seen None Seen, 0-2, 3-5 /HPF 08/27/2021 5:38 PM [facility] Mucus UA 1+ /LPF 08/27/2021 5:38 PM [facility] Urine URINE SPECIMEN OBTAINED BY CLEAN CATCH PROCEDURE / Unknown Collection / Unknown 08/27/2021 5:05 PM PROPERTY STAFF ACCOUNTANT 08/27/2021 5:15 PM PROPERTY STAFF ACCOUNTANT Narrative [facility] - 08/27/2021 5:38 PM PROPERTY STAFF ACCOUNTANT Summer Villagomez MD LAB - URINALYSIS OR DERABLES [facility] [address] [place] [address], [place] [phone] * CULTURE BLOOD (08/27/2021 5:05 PM PROPERTY STAFF ACCOUNTANT) Only the most recent of2 resultswithin the time period is included. Culture No growth day 5 MANJIT 09/01/2021 9:00 PM CDT [facility] MICROBIOLOGY Blood PERIPHERAL BLOOD / Unknown Venipuncture / Unknown 08/27/2021 5:05 PM PROPERTY STAFF ACCOUNTANT 08/27/2021 5:15 PM PROPERTY STAFF ACCOUNTANT Summer Villagomez MD LAB - MICROBIOLOGY ORDERABLES [facility] MICROBIOLOGY [address] [place] [address], [facility] [phone] * XR CHEST 1VW PORTABLE (08/27/2021 4:47 PM PROPERTY STAFF ACCOUNTANT) Only the most recent of16 resultswithin the time period is included. Anatomical Region Laterality Modality Chest Radiographic Lynette ging 08/27/2021 4:53 PM PROPERTY STAFF ACCOUNTANT Impressions 08/28/2021 12:27 PM CDT FINDINGS/IMPRESSION: Endotracheal tube terminates in the midthoracic trachea. Gastric tube courses in the stomach, tip not imaged. Hypoinflated lungs. Slightly increased right lung haziness and basilar opacities. The left lung is clear. No pneumothorax. The cardiomediastinal silhouette is normal. The visible bony thorax is intact. Dictated by Nemesio Graves DO (secretary to the vice president). Dr. HALIMA Londono MD have personally reviewed [...] is intact. Dictated by Nemesio Graves DO (secretary to the vice president). Dr. HALIMA Londono MD have personally reviewed and interpreted this examination/study. This report was electronically signed by HALIMA HERRERA MD on 08/28/2021 12:27 PM . Summer Villagomez MD DIAGNOSTIC IMAGING ORDERABLES * MRI BRAIN WWO CONTRAST (08/26/2021 11:00 PM PROPERTY STAFF ACCOUNTANT) Anatomical Region Laterality Modality Head Magnetic Resonan ce 08/27/2021 5:07 PM PROPERTY STAFF ACCOUNTANT Impressions 08/27/2021 5:26 PM PROPERTY STAFF ACCOUNTANT IMPRESSION: Since prior head CT from 08/24/2021: 1.Redemonstration of evolving early subacute hematoma involving the left temporoparietal region with mild surrounding vasogenic edema and mild local mass effect as outlined. 2.No abnormal enhancement to suggest underlying enhancing mass. 3.Findings compatible with hepatic encephalopathy. This report was electronically signed by ALY MILLS ??on 08/27/2021 5:26 PM . Narrative 08/27/2021 5:26 PM PROPERTY STAFF ACCOUNTANT MRI BRAIN WWO CONTRAST DATE: 08/26/2021 11:03 [...] shape, and morphology. Redemonstration of 4 mm [id number]-rs-wveez midline shift is again seen at the [...] size, shape, and morphology. Redemonstration of 4 fcjini-fh-amyed midline shift is again seen at the [...] ABDOMEN DOPPLER ONLY COMP (08/26/2021 12:16 PM PROPERTY STAFF ACCOUNTANT) Anatomical Region Laterality Modality Abdomen Ultrasound 08/26/2021 1:18 PM PROPERTY STAFF ACCOUNTANT Impressions 08/26/2021 2:31 PM PROPERTY STAFF ACCOUNTANT IMPRESSION: 1.Hepatic cirrhosis with sequelae of portal hypertension; there is reversal of normal portal flow directionality. 2.Cholelithiasis with trace pericholecystic fluid. No further sonographic evidence of acute cholecystitis. 3.Nonvisualization of the hepatic veins. 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 4.Trace perihepatic fluid. Report dictated by Axel Weaver MD (secretary to the vice president). This report was approved ??by Axel Weaver ?? on 08/26/2021 1:57 PM . I, Dr. TAE PICKARD have personally reviewed and interpreted this examination/study. This report was electronically signed by TAE PICKARD ??on 08/26/2021 2:31 PM . Narrative 08/26/2021 2:31 PM PROPERTY STAFF ACCOUNTANT EXAMINATION: 1. Limited abdominal sonogram 2. Color [...] fluid. Report dictated by Axel Weaver MD (secretary to the vice president). This report was approved by Axel Weaver on 08/26/2021 1:57 PM . I, Dr. TAE PICKARD have personally reviewed and interpreted this examination/study. This report was electronically signed by TAE PICKARD on 08/26/2021 2:31PM . Gabriele Riley MD US ORDERABLES * US ABDOMEN LIMITED (08/26/2021 12:16 PM PROPERTY STAFF ACCOUNTANT) Anatomical Region Laterality Modality Abdomen Ultrasound 08/26/2021 1:18 PM PROPERTY STAFF ACCOUNTANT Impressions 08/26/2021 2:31 PM PROPERTY STAFF ACCOUNTANT IMPRESSION: 1.Hepatic cirrhosis with sequelae of portal hypertension; there is reversal of normal portal flow directionality. 2.Cholelithiasis with trace pericholecystic fluid. No further sonographic evidence of acute cholecystitis. 3.Nonvisualization of the hepatic veins. 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 4.Trace perihepatic fluid. Report dictated by Axel Weaver MD (secretary to the vice president). This report was approved ??by Axel Weaver ?? on 08/26/2021 1:57 PM . I, Dr. TAE PICKARD have personally reviewed and interpreted this examination/study. This report was electronically signed by TAE PICKARD ??on 08/26/2021 2:31 PM . Narrative 08/26/2021 2:31 PM PROPERTY STAFF ACCOUNTANT EXAMINATION: 1. Limited abdominal sonogram 2. Color [...] fluid. Report dictated by Axel Weaver MD (secretary to the vice president). This report was approved by Axel Weaver on 08/26/2021 1:57 PM . I, Dr. TAE PICKARD have personally reviewed and interpreted this examination/study. This report was electronically signed by TAE PICKARD on 08/26/2021 2:31PM . Gabriele Riley MD US ORDERABLES * (ABNORMAL) GLUCOSE - POINT OF CARE (08/26/2021 8:46 AM PROPERTY STAFF ACCOUNTANT) Only the most recent of6 resultswithin the time period is included. Glucose WB/POC 118(H) 70 - 115 mg/dL 08/26/2021 8:50 AM PROPERTY STAFF ACCOUNTANT [facility] Specimen Type Venous 08/26/2021 8:50 AM PROPERTY STAFF ACCOUNTANT [facility] Blood BLOOD SPECIMEN / Unknown 08/26/2021 8:46 AM PROPERTY STAFF ACCOUNTANT 08/26/2021 8:50 AM PROPERTY STAFF ACCOUNTANT Gabriele Riley MD LAB - POINT OF CARE ORDERABLES [facility] [address] [place] [address], [facility] [phone] * HEMOGLOBIN A1C (08/26/2021 12:32 AM PROPERTY STAFF ACCOUNTANT) Hemoglobin A1c 5.1 <=5.6 % 08/26/2021 10:53 AM [facility] Estimated Average Glucose 100 mg/dL 08/26/2021 10:53 AM [facility] Comment: HbA1c Interpretation: Normal : < 5.7% Pre-diabetes: 5.7-6.4% Diabetes: Equal to or greater than 6.5% Test results diagnostic of diabetes should be repeated for confirmation. Treatment target values recommended by ADA and other clinical organizations should be used to evaluate metabolic control in patients. Reference: [place] [employer], Standards of Care in Diabetes -2020 In patients 70 years and older consider HbA1c target range of 7.0-7.5% (Reference: Yusef Marquis et al. JAMDA. 2012) The Sebia assay for the measurement of HbA1c is a National Glycohemoglobin Standardization Program (NGSP) certified method. Blood BLOOD SPECIMEN / Unknown Venipuncture / Unknown 08/26/2021 12:32 AM PROPERTY STAFF ACCOUNTANT 08/26/2021 12:55 AM PROPERTY STAFF ACCOUNTANT Gabriele Riley MD LAB - CHEMISTRY ORDE [facility] Organization Address City/State/ZIP Co de Phone Number [facility] [address] [place] [phone], [facility] [phone] * ECHO COMPLETE W BUBBLE STUDY (08/25/2021 1:56 PM PROPERTY STAFF ACCOUNTANT) Anatomical Region Laterality Modality Chest Echo 08/25/2021 1:22 PM PROPERTY STAFF ACCOUNTANT Narrative Procedure Note Jose R Salcedo MD - 08/26/2021 Gabriele Riley MD ECHOCARDIOGRAPHY RAD IANT * ALCOHOL ETHYL BLOOD (08/25/2021 12:09 PM PROPERTY STAFF ACCOUNTANT) Only the most recent of2 resultswithin the time period is included. Ethanol (mg/dL) <10 <10 mg/dL 12:48 PM PROPERTY STAFF ACCOUNTANT [facility] Ethanol Calculated (g/dL) <0.010 <0.010 g/dL 08/25/2021 12:48 PM [facility] Blood BLOOD SPECIMEN / Unknown Venipuncture / Unknown 08/25/2021 12:09 PM PROPERTY STAFF ACCOUNTANT 08/25/2021 12:25 PM PROPERTY STAFF ACCOUNTANT Narrative [facility] - 08/25/2021 12:48 PM PROPERTY STAFF ACCOUNTANT Ethanol Interp <10: None Detected. Depression of CONTENT DEVELOPER: >100 mg/dl Potentially Critical: >250 mg/dl Potentially [...] - CHEMISTRY MIGUEL GOLD Performing Organization Address City/[facility]/ZIP Co de Phone Number [address] [address], [facility] [phone] * TROPONIN I (08/25/2021 4:20 AM PROPERTY STAFF ACCOUNTANT) Only the most recent of3 resultswithin the time period is included. Troponin I <0.010 <0.032 ng/mL 08/25/2021 5:23 AM PROPERTY STAFF ACCOUNTANT [facility] Blood BLOOD SPECIMEN / Unknown Venipuncture / Unknown 08/25/2021 4:20 AM PROPERTY STAFF ACCOUNTANT 08/25/2021 4:37 AM PROPERTY STAFF ACCOUNTANT Thien Augustin MD LAB - CHEMISTRY MIGUEL GOLD Performing Organization Address [facility] Co de Phone Number [address] [phone], [facility] [phone] * CT HEAD WO CONTRAST (08/25/2021 2:23 AM PROPERTY STAFF ACCOUNTANT) Only the most recent of3 resultswithin the time period is included. Anatomical Region Laterality Modality Head Computed Tomogra phy 08/25/2021 2:34 AM PROPERTY STAFF ACCOUNTANT Impressions 08/25/2021 9:44 AM PROPERTY STAFF ACCOUNTANT IMPRESSION: 1. Grossly unchanged large intraparenchymal hematoma centered in the left parietotemporal lobe, with moderate mass effect upon the adjacent structures and unchanged 5 mm left to right midline shift. Report dictated by Meena Wall MD (secretary to the vice president). I, Dr. PHILLY TEJADA M.D. have personally reviewed and interpreted this examination/study. This report was electronically signed by PHILLY TEJADA M.D. ??on 08/25/2021 9:44 AM . Narrative 08/25/2021 9:44 AM PROPERTY STAFF ACCOUNTANT EXAMINATION: Computed tomography (CT) of the head [...] shift. Report dictated by Meena Wall MD (secretary to the vice president). I, Dr. PHILLY TEJADA M.D. have personally reviewed and interpreted this examination/study. This report was electronically signed by PHILLY TEJADA M.D. on 08/25/2021 9:44 AM . Thien Augustin MD CT ORDERABLES * (ABNORMAL) BLOOD GASES ART + COOX PANEL (08/24/2021 10:02 PM [facility]) Only the most recent of2 resultswithin the time period is included. pH Arterial 7.50(H) 7.35 - 7.45 pH 08/24/2021 10:15 PM [facility] pO2 Arterial 193(H) 80 - 100 mmHg 08/24/2021 10:15 PM [facility] pCO2 Arterial 27(L) 35 - 45 mmHg 10:15 PM [facility] HCO3 Arterial 21 20 - 30 mmol/l 08/24/2021 10:15 PM [facility] BE Arterial -0.7 -2.0 - 2.0 mmol/L 08/24/2021 10:15 PM [facility] Oxyhemoglobin Arterial 97.7 % 08/24/2021 10:15 PM [facility] Dexoyhemoglobin (HHB) % 0.0 % 08/24/2021 10:15 PM [facility] Methemoglobin 1.0 0.0 - 2.0 % 08/24/2021 10:15 PM [facility] Carboxyhemoglobin 1.3 0.0 - 2.0 % 2021 10:15 PM [facility] O2 Content Arterial 19.6 Interpret within clinical context mg/dL 08/24/2021 10:15 PM [facility] Hemoglobin by COOX 14.0 12.0 - 17.6 g/dL 08/24/2021 10:15 PM [facility] O2 Saturation Arterial 100 90 - 100 % 08/24/2021 10:15 PM PROPERTY STAFF ACCOUNTANT [facility] FI O2 Arterial 40.0 % 08/24/2021 10:15 PM [facility] Blood, arterial ARTERIAL BLOOD SPECIMEN / Unknown Arterial Puncture / Unknown 08/24/2021 10:02 PM PROPERTY STAFF ACCOUNTANT 08/24/2021 10:10 PM PROPERTY STAFF ACCOUNTANT Narrative [facility] - 08/24/2021 10:15 PM PROPERTY STAFF ACCOUNTANT Carboxyhemoglobin Normal Concentration: Non-smokers: 0-2%; Smokers: 0-9%; Toxic: >20% Thien Augustin MD LAB - BLOOD GASES OR DERABLES Performing Organization Address [facility] Co de Phone Number [facility] [address] [place] [address], [facility] [phone] * DRUG SCREEN EXPANDED TOXICOLOGY URINE PANEL (08/24/2021 7:45 PM PROPERTY STAFF ACCOUNTANT) Drug Screen Expanded See Scanned Report 08/25/2021 10:24 AM [facility] NON INTERF Urine URINE / Unknown Collection / Unknown 08/24/2021 7:45 PM PROPERTY STAFF ACCOUNTANT 08/24/2021 7:51 PM PROPERTY STAFF ACCOUNTANT Thien Augustin MD LAB - URINE CHEMISTR Y ORDERABLES Performing Organization Address [facility] Co de Phone Number [facility] NON INTERF [address] [place] [address], [place] [phone] * (ABNORMAL) URINE DRUG SCREEN IMMUNOASSAY (08/24/2021 7:45 PM PROPERTY STAFF ACCOUNTANT) Only the most recent of2 resultswithin the time period is included. Amphetamines Screen Urine Positive(A) Negative : < 1000 ng/mL 08/24/2021 8:08 PM [facility] Comment: Positive urine amphetamine screening results should be confirmed by another generally accepted non-immunological method such as gas chromatography or mass spectrometry. ? Barbiturates Screen Urine Negative Negative : < 200 ng/mL 08/24/2021 8:08 PM [facility] Benzodiazepine Screen Urine Positive(A) Negative : < 200 ng/mL 08/24/2021 8:08 PM [facility] Comment: Positive urine benzodiazepine screening results should be confirmed by another generally accepted non-immunological method such as gas chromatography or mass spectrometry. ? Opiates Urine Negative Negative : < 300 ng/mL 08/24/2021 8:08 PM [facility] Cocaine Metabolites Urine Negative Negative : < 300 ng/mL 08/24/2021 8:08 PM [facility] Phencyclidine Screen Urine Negative Negative : < 25 ng/ml 08/24/2021 8:08 PM [facility] Cannabinoids Screen Urine Negative Negative : <50 ng/mL 08/24/2021 8:08 PM [facility] Methadone Screen Urine Negative Negative : < 300 ng/mL 08/24/2021 8:08 PM [facility] Fentanyl Screen Urine Negative Negative : <1.0 ng/mL 08/24/2021 8:08 PM [facility] Urine URINE / Unknown Collection / Unknown 08/24/2021 7:45 PM [facility] 08/24/2021 7:51 PM [facility] - 08/24/2021 8:08 PM [facility] The Urine Toxicology Screening Panel does not screen for Propoxyphene, Meprobamate, Carisoprodol, Trazodone, qfiv-esa-dhpupjr medications and/or volatiles (Acetone, Isopropanol, Methanol or Ethylene Glycol). Ethanol, Salicylate, Acetaminophen, Tricyclic Antidepressants and several therapeutic drugs may be individually assayed in serum or plasma specimen. Toxicology testing by the [facility] is an aid to medical diagnosis and treatment of patients. No documented chain of custody was maintained. Results are intended to be used for clinical purposes only. ? Thien Augustin MD LAB - URINE CHEMISTR Y ORDERABLES Performing Organization Address [facility] Co de Phone Number [facility] [address] [place] [address], [place] [phone] * TYPE + SCREEN PANEL (08/24/2021 7:36 PM PROPERTY STAFF ACCOUNTANT) Only the most recent of4 resultswithin the time period is included. [facility] Antibody Screen NEG 8:27 PM PROPERTY STAFF ACCOUNTANT [facility] ABO Rh O POS 08/24/2021 8:27 PM PROPERTY STAFF ACCOUNTANT [facility] Blood Bank BLOOD SPECIMEN / Unknown Venipuncture / Unknown 08/24/2021 7:36 PM PROPERTY STAFF ACCOUNTANT 08/24/2021 7:43 PM PROPERTY STAFF ACCOUNTANT Thien Augustin MD LAB - BLOOD BANK ORD ERABLES Performing Organization Address [facility] de Phone Number [facility] [address] [place] [address], [place] [phone] * LACTIC ACID BLOOD (08/24/2021 7:36 PM PROPERTY STAFF ACCOUNTANT) [facility] Lactic Acid-Stat 1.3 <=2.0 mmol/L 08/24/2021 8:21 PM PROPERTY STAFF ACCOUNTANT [facility] Blood BLOOD SPECIMEN / Unknown Venipuncture / Unknown 08/24/2021 7:36 PM PROPERTY STAFF ACCOUNTANT 08/24/2021 7:42 PM PROPERTY STAFF ACCOUNTANT Thien Augustin MD LAB - CHEMISTRY ORDE ALLA Performing Organization Address [facility] de Phone Number [facility] [address] [place] [address], [facility] [phone] * (ABNORMAL) CK BLOOD (08/24/2021 7:36 PM PROPERTY STAFF ACCOUNTANT) CK Total 409(H) 30 - 200 U/L 08/24/2021 8:01 PM PROPERTY STAFF ACCOUNTANT [facility] Blood BLOOD SPECIMEN / Unknown Venipuncture / Unknown 08/24/2021 7:36 PM PROPERTY STAFF ACCOUNTANT 08/24/2021 7:41 PM PROPERTY STAFF ACCOUNTANT Thien Augustin MD LAB - CHEMISTRY MIGUEL GOLD [address] [address], [facility] [phone] * (ABNORMAL) SALICYLATE LEVEL BLOOD (08/24/2021 7:36 PM PROPERTY STAFF ACCOUNTANT) Salicylate <5(L) 15 - 30 mg/dL 08/24/2021 8:01 PM [facility] Blood BLOOD SPECIMEN / Unknown Venipuncture / Unknown 08/24/2021 7:36 PM PROPERTY STAFF ACCOUNTANT 08/24/2021 7:41 PM PROPERTY STAFF ACCOUNTANT [facility] - 08/24/2021 8:01 PM PROPERTY STAFF ACCOUNTANT This test is not intended for use with low-dose aspirin therapy. Most patients on low-dose aspirin for cardiovascular prophylaxis will have serum concentrations near or below the lower limit of the analytical range. Thien Augustin MD LAB - CHEMISTRY MIGUEL GOLD [address] [address], [facility] [phone] * ACETAMINOPHEN LEVEL (08/24/2021 7:36 PM PROPERTY STAFF ACCOUNTANT) Acetaminophen <3.0 <3.0 ug/mL 08/24/2021 8:01 PM PROPERTY STAFF ACCOUNTANT [facility] Blood BLOOD SPECIMEN / Unknown Venipuncture / Unknown 08/24/2021 7:36 PM PROPERTY STAFF ACCOUNTANT 08/24/2021 7:41 PM PROPERTY STAFF ACCOUNTANT Narrative [facility] - 08/24/2021 8:01 PM PROPERTY STAFF ACCOUNTANT Acetaminophen Toxicity Levels (Hours Post Ingestion): ? [...] may alter the peak level. Contact the [facility] at or reserved for healthcare professionals to assist you in evaluating potentially toxic acetaminophen levels. Thien Augustin MD LAB - CHEMISTRY MIGUEL GOLD [facility] Organization Address City/State/ZIP Co de Phone Number [address] [address], [facility] [phone] * CT CHEST ABDOMEN PELVIS W CONT (08/24/2021 7:31 PM PROPERTY STAFF ACCOUNTANT) Only the most recent of2 resultswithin the time period is included. Anatomical Region Laterality Modality Chest, Abdomen, Pelvis Computed Tomography 08/24/2021 7:32 PM PROPERTY STAFF ACCOUNTANT Impressions 08/25/2021 9:42 AM PROPERTY STAFF ACCOUNTANT Impression: 1.No acute finding within the chest. [...] 9:42 AM . Narrative 08/25/2021 9:42 AM PROPERTY STAFF ACCOUNTANT Procedure Information DATE: 08/24/2021 7:32 PM EXAMINATION: [...] ANGIO BRAIN AND NECK (08/24/2021 7:30 PM PROPERTY STAFF ACCOUNTANT) Anatomical Region Laterality Modality Head Computed Tomogra phy 08/24/2021 7:40 PM PROPERTY STAFF ACCOUNTANT Impressions 08/25/2021 8:45 AM PROPERTY STAFF ACCOUNTANT IMPRESSION: 1.The left A1 and A2 segments [...] and verification. Dictated by Nemesio Graves DO (secretary to the vice president) I, Dr. PHILLY TEJADA M.D. have personally reviewed and interpreted this examination/study. This report was electronically signed by PHILLY TEJADA M.D. ??on 08/25/2021 8:45 AM . Narrative 08/25/2021 8:45 AM PROPERTY STAFF ACCOUNTANT EXAMINATION: CT angiography of the head with [...] and verification. Dictated by Nemesio Graves DO (secretary to the vice president) [place], Dr. PHILLY TEJADA M.D. have personally reviewed and interpreted this examination/study. This report was electronically signed by PHILLY TEJADA M.D. on 08/25/2021 8:45 AM . Gabriele Riley MD CT ORDERABLES * CT BRAIN - Stroke (08/24/2021 7:16 PM PROPERTY STAFF ACCOUNTANT) Anatomical Region Laterality Modality Head Computed Tomogra phy 08/24/2021 7:28 PM PROPERTY STAFF ACCOUNTANT Impressions 08/25/2021 8:30 AM PROPERTY STAFF ACCOUNTANT IMPRESSION: 1. Acute intraparenchymal hematoma in the left posterior parietotemporal lobes measuring approximately 3.4 x 3.6 x 3.7 cm with mild surrounding vasogenic edema. Mass effect causes 5 mm left to right midline shift. Findings were discussed with Dr. Vela by Dr. Graves at 7:33 PM on 08/24/2021 via telephone with readback comprehension and verification. Dictated by Nemesio Graves DO (vice president supply chain) [place], Dr. PHILLY TEJADA M.D. have personally reviewed and interpreted this examination/study. This report was electronically signed by PHILLY TEJADA M.D. ??on 08/25/2021 8:30 AM . Narrative 08/25/2021 8:30 AM PROPERTY STAFF ACCOUNTANT EXAMINATION: Computed tomography (CT) of the head [...] Dictated by Nemesio Graves DO (vice president supply chain) I, Dr. PHILLY TEJADA M.D. have personally [...] Culture not indicated 10/18/2018 12:28 PM CDT [facility] RBC UA 0-2 None Seen, 0-2, 3-5 # /hpf 10/18/2018 12:28 PM CDT [facility] WBC UA 0-5 None Seen, 0-5 # /hpf 10/18/2018 12:28 PM CDT [facility] Bacteria UA None Seen None Seen 10/18/2018 12:28 PM CDT [facility] Squamous Epithelial Cells None Seen None Seen, 0-2, 3-5 /hpf 10/18/2018 12:28 PM CDT [facility] Urine URINE SPECIMEN OBTAINED BY CLEAN CATCH PROCEDURE / Unknown Collection / Unknown 10/18/2018 11:37 AM CDT 10/18/2018 12:01 PM CDT Narrative [facility] - 10/18/2018 12:28 PM CDT Cordelia Ramey ASSISTANT SALES MANAGER-BLOWER INSTALLER LAB - URINALYS IS ORDERABLES [facility] [address] [place] [address] * (ABNORMAL) RBC MORPHOLOGY (10/17/2018 4:00 AM CDT) Only the most recent of13 resultswithin the time period is included. Platelet Estimate Adequate Adequate 019 4:55 AM CDT [facility] Anisocytosis 1+(A) None 10/17/2018 4:55 AM CDT [facility] Poikilocytes Few(A) None 10/17/2018 4:55 AM CDT [facility] Macrocytosis Few(A) None 10/17/2018 4:55 AM CDT [facility] Hypochromia 1+(A) None 10/17/2018 4:55 AM CDT [facility] Polychromasia Rare(A) None 10/17/2018 4:55 AM CDT [facility] Target Cells Rare(A) None 10/17/2018 4:55 AM CDT [facility] Blood BLOOD SPECIMEN / Unknown Lab Venipuncture / Unknown 10/17/2018 4:00 AM CDT 10/17/2018 4:03 AM CDT Juancho Rhodes MD LAB - HEMATOLOGY ORD ERABLES [address] [phone] * XR WRIST LEFT 2VW (10/15/2018 3:16 [...] CALI SURGERY (10/15/2018 1:02 PM CDT) Narrative [facility] - 10/15/2018 1:02 PM CDT Fluoroscopy was used for this exam in the OR. Please see the Operative report. Maciel Greer MD FLUOROSCOPY ORDERA BLES Performing Organization Address City/State/[facility] Co de Phone Number [facility] * PREPARE (CROSSMATCH) RBC UNIT(S), 1 Units (10/14/2018 4:21 AM CDT) Unit Description LR Red Cells [facility] Unit ABO O [facility] Unit Rh POS [facility] Product Code RL5 [facility] Donor # [id number] [facility] Unit Status released [facility] Product Number [id number] [facility] Blood Type Barcode 5100 [facility] Blood Bank BLOOD SPECIMEN / Unknown 10/14/2018 4:21 AM CDT 10/14/2018 4:21 AM CDT Yusuf Velasco MD LAB - BLOOD BANK ORD ERABLES [facility] [address] * (ABNORMAL) BLOOD GASES ARTERIAL (10/12/2018 1:27 PM CDT) Only the most recent of4 resultswithin the time period is included. pH Arterial 7.52(H) 7.35 - 7.45 10/12/2018 1:41 PM [facility] pCO2 Arterial 32(L) 35 - 45 mmHg 10/12/2018 1:41 PM [facility] pO2 Arterial 75(L) 77 - 101 mmHg 10/12/2018 1:41 PM [facility] HCO3 Arterial 25.6 22.0 - 26.0 mmol/L 10/12/2018 1:41 PM [facility] TCO2 Arterial 26.6 25.0 - 29.0 mmol/L 10/12/2018 1:41 PM [facility] Base Excess Arterial 3.1(H) -2.0 - 2.0 mmol/L 10/12/2018 1:41 PM [facility] Hemoglobin Arterial 10.9(L) 13.5 - 17.5 g/dL 10/12/2018 1:41 PM [facility] Oxyhemoglobin Arterial 94.2(L) 95.0 - 100.0 % 10/12/2018 1:41 PM [facility] Carboxyhemoglobin 0.3 0.0 - 3.0 % 10/12/2018 1:41 PM [facility] Methemoglobin 0.2 0.0 - 2.0 % 10/12/2018 1:41 PM [facility] FI O2 Arterial 21.0 % 10/12/2018 1:41 PM [facility] Blood, arterial ARTERIAL BLOOD SPECIMEN / Unknown Arterial Puncture / Unknown 10/12/2018 1:27 PM CDT 10/12/2018 1:34 PM T Juancho Rhodes MD LAB - BLOOD GASES OR DERABLES [facility] [address] [phone] * HIV-1 HIV-2 ANTIGEN/ANTIBODY (10/12/2018 12:06 AM CDT) Pathologist [facility] HIV Antigen/Antibod y 1 & 2 Non-reacti ve Non-react maureen 10/12/2018 1:05 AM CDT [facility] Comment: Neither HIV-1 p24 Antigen nor HIV-1/HIV-2 Antibodies are detected. ? Blood BLOOD SPECIMEN / Unknown Lab Venipuncture / Unknown 10/12/2018 12:06 AM CDT 10/12/2018 12:17 AM CDT Juancho Rhodes MD LAB - HEMATOLOGY ORD ERABLES Performing Organization Address [facility]/ZIP Co de Phone Number [address] [phone] * SYPHILIS ANTIBODY CASCADING REFLEX (10/12/2018 12:06 AM CDT) [facility] Treponema pallidum Antibody Non-react maureen Non-react maureen 10/12/2018 1:05 AM CDT [facility] Comment: No Laboratory evidence of syphilis infection. ?? Note: ??Circulating antibodies may be low or undetectable in early infection. ??If recent exposure is suspected, re-draw sample in 2-4 weeks and repeat testing. Blood BLOOD SPECIMEN / Unknown Lab Venipuncture / Unknown 10/12/2018 12:06 AM CDT 10/12/2018 12:17 AM CDT Juancho Rhodes MD LAB - SEROLOGY ORDER WILLIAN Performing Organization Address [facility]/[place] [address], [facility] [phone] * VITAMIN B1 (10/12/2018 12:06 AM CDT) [facility] Vitamin B1 Whole Blood 175.9 66.5 - 200.0 nmol/L 10/17/2018 6:15 AM CDT [facility] ([facility]) Comment: This test was developed and its performance characteristics determined by [facility]. It has not been cleared or approved by the Food and Drug Administration. Blood BLOOD SPECIMEN / Unknown Lab Venipuncture / Unknown 10/12/2018 12:06 AM CDT 10/12/2018 12:17 AM CDT Narrative [facility] ([facility]) - 10/17/2018 6:15 AM CDT Performed at: ??01 - [facility] ??[id number] Library Media Technician: Alex Wilcox MD, Phone: ??[phone] Juancho Rhodes MD LAB - CHEMISTRY MIGUEL GOLD Performing Organization Address City/[facility]/ZIP Co de Phone Number [facility]) [address] [id number] * HOMOCYSTEINE BLOOD QUANTITATIVE (10/12/2018 12:06 AM CDT) Pathologist [facility] Homocysteine 5.2 4.4 - 16.2 umol/L 10/12/2018 1:24 AM CDT [facility] Blood BLOOD SPECIMEN / Unknown Lab Venipuncture / Unknown 10/12/2018 12:06 AM CDT 10/12/2018 12:17 AM CDT Juancho Rhodes MD LAB - CHEMISTRY MIGUEL GOLD Performing Organization Address City/[facility]/ZIP Co de Phone Number [address] [phone] * (ABNORMAL) HEPATIC FUNCTION PANEL (10/12/2018 12:06 AM CDT) Only the most recent of2 resultswithin the time period is included. Protein Total 5.0(L) 6.0 - 8.3 g/dL 019 12:51 AM CDT [facility] Albumin 1.6(L) 3.4 - 5.0 g/dL 10/12/2018 12:51 AM CDT [facility] Bilirubin Total 2.8(H) 0.2 - 1.2 mg/dL 09/17 12:51 AM CDT [facility] Bilirubin Conjugated 2.0(H) 0.0 - 0.5 mg/dL 10/12/2018 12:51 AM [facility] Bilirubin Unconjugated 0.8 Unconjugated Bilirubin is a calculated value: Reference ranges have not been established. mg/dL 10/12/2018 12:51 AM [facility] Alkaline Phosphatase 103 40 - 150 Units/L 10/12/2018 12:51 AM [facility] ALT 26 0 - 55 Units/L 10/12/2018 12:51 AM [facility] AST 105(H) 5 - 34 Units/L 10/12/2018 12:51 AM [facility] Albumin/Globulin Ratio 0.5(L) 1.1 - 2.3 10/12/2018 12:51 AM T [facility] Blood BLOOD SPECIMEN / Unknown Lab Venipuncture / Unknown 10/12/2018 12:06 AM CDT 10/12/2018 12:17 AM CDT Juancho Rhodes MD LAB - CHEMISTRY MIGUEL GOLD [address] [phone] * (ABNORMAL) FOLATE (10/12/2018 12:06 AM CDT) Pathologist [facility] Folate 6.5(L) 7.0 - 31.4 ng/mL 10/12/2018 1:59 AM T [facility] Blood BLOOD SPECIMEN / Unknown Lab Venipuncture / Unknown 10/12/2018 12:06 AM CDT 10/12/2018 12:17 AM CDT Juancho Rhodes MD LAB - CHEMISTRY MIGUEL GOLD [address] [phone] * XR CHEST 1VW (10/11/2018 5:12 AM [...] electronically signed by LEILANI GALEAS M.D. on 10/11/2018 11:48 AM . Mora Bailey MD DIAGNOSTIC IMAGING O RDERABLES * (ABNORMAL) DIFFERENTIAL MANUAL (10/10/2018 12:03 AM CDT) Only the most recent of2 resultswithin the time period is included. WBC (corrected for NRBC) 5.3 10? 3 /uL 10/10/2018 1:37 AM [facility] Total Cell Count 100 10/11/19 19 1:37 AM [facility] Neutrophils Absolute Manual 3.92 1.60 - 7.00 10? 3 /uL 10/10/2018 1:37 AM [facility] Comment:(BANDS+SEGS) x WBC = NEUT # (ANC) Lymphocyte Absolute Manual 0.58(L) 0.80 - 2.90 10? 3 /uL 10/10/2018 1:37 AM [facility] Monocytes Absolute Manual 0.64 0.14 - 0.66 10? 3 /uL 10/10/2018 1:37 AM [facility] Eosinophils Absolute Manual 0.11 0.00 - 0.22 10? 3 /uL 10/10/2018 1:37 AM [facility] Neutrophil % Manual 74(H) 30 - 60 % 10/10/2018 1:37 AM [facility] Lymphocyte % Manual 11(L) 20 - 45 % 10/10/2018 1:37 AM [facility] Monocytes % Manual 12(H) 2 - 10 % 10/10/2018 1:37 AM [facility] Eosinophils % Manual 2 1 - 6 % 10/10/2018 1:37 AM [facility] Atypical Lymphocyte % Manual 1(H) 0 % 10/10/2018 1:37 AM [facility] Platelet Estimate Slightly Decreased(A ) Adequate 10/10/2018 1:37 AM [facility] Anisocytosis 1+(A) None 10/10/2018 1:37 AM [facility] Hypochromia 1+(A) None 10/10/2018 1:37 AM [facility] Polychromasia Few(A) None 10/10/2018 1:37 AM [facility] Target Cells 1+(A) None 10/10/2018 1:37 AM [facility] Ovalocytes 1+(A) None 10/10/2018 1:37 AM [facility] Blood BLOOD SPECIMEN / Unknown Venipuncture / Unknown 10/10/2018 12:03 AM CDT 10/10/2018 12:32 AM CDT Juancho Rhodes MD LAB - HEMATOLOGY [place] [address], [facility] [phone] * XR HAND LEFT 3VW OR MORE (10/02/2018 5:12 PM CDT) Anatomical Region Laterality Modality Wrist / Hand Radiographic Lynette ging 10/02/2018 5:18 PM CDT Impressions 10/04/2018 3:04 PM CDT IMPRESSION: 1.Mildly displaced intra-articular distal radius fracture. 2.No acute fracture in the hand. Report dictated by Efren Bauman M.D. (secretary to the vice president). I, Dr. SHAAN ALEJANDRE have personally reviewed [...] hand. Report dictated by Efren Bauman M.D. (secretary to the vice president). Dr. SHAAN Londono have personally reviewed and [...] hand. Report dictated by Efren Bauman M.D. (secretary to the vice president). Dr. SHAAN Londono have personally reviewed and [...] hand. Report dictated by Efren Bauman M.D. (secretary to the vice president). Dr. SHAAN Londono have personally reviewed and [...] identified. Report dictated by Efren Bauman M.D. (secretary to the vice president). Dr. LEILANI Londono M.D. have personally reviewed [...] identified. Report dictated by Efren Bauman M.D. (secretary to the vice president). Dr. LEILANI Londono M.D. have personally reviewed [...] examination/study. This report was electronically signed by AYL MILLS ??on 10/03/2018 10:27 AM . Narrative [...] identified. Report dictated by Efren Bauman M.D. (secretary to the vice president). Dr. LEILANI Londono M.D. have personally reviewed [...] identified. Report dictated by Efren Bauman M.D. (secretary to the vice president). I, Dr. LEILANI GALEAS M.D. have personally reviewed and interpreted this examination/study. This report was electronically signed by LEILANI GALEAS M.D. on 10/04/2018 4:36 PM . Alfred Thakkar DO DIAGNOSTIC IMAGING O RDERABLES * PTT [facility] (10/02/2018 4:10 PM CDT) APTT 36.9 23.0 - 38.4 Seconds 10/02/2018 4:44 PM CDT [facility] Comment: * Please Note: New therapeutic range for heparin therapy. * Suggested therapeutic range for full dose I.V. heparin therapy for venous thromboembolism is 65 to 103 seconds. Blood BLOOD SPECIMEN / Unknown Venipuncture / Unknown 10/02/2018 4:10 PM CDT 10/02/2018 4:12 PM CDT Alfred Thakkar DO LAB - COAGULATION OR DERABLES [address] [phone] Care Teams Fire Watcher Relationship Specialty Start Date End Date Toni Ravi MD [address] [place] [id number] PCP - General Internal Medicine 04/24/23 Jomar Noble MD [address] [place] [address] [address] [place] [address] Hospitalist Internal Medicine 04/24/23
--- OUTSIDE RECORDS SUMMARY | 2024-06-27 10:29 | XMS_ITS | Encounter Summary ---
Author Organization [facility] Address [address] [facility] [place] [address] Care Team Providers Care Spindle Sander Name Role Phone Unavailable Primary Care Provider Unavailabl e Reason for Referral * Radiology Services (Routine) - Closed Specialty Diagnoses / Procedures Referred By Contact Referred To Contact Interventional Radiology Diagnoses Cerebral atherosclerosis Procedures IR CAROTID CEREBRAL ANGIOGRAM Summer Villagomez MD [address] [place] [address] [facility] [address] [place] [address] Referral ID Status Reason Start Date Expiration Date Visits Re quested Visits Authorized [id number] Closed 11/07/2021 10/20/2022 1 1 Reason for Visit * Reason Onset Date Comments Order 10/20/2021 Encounter Details Date Type Department Care Team (Late st Contact Info) Description 10/20/2021 Telephone [facility] [address] [facility] [place] [id number] Jill Galindo LPN [address] [place] [address] Order Social History Tobacco Use Types Packs/Day [...] Description 08/25/2024 1:10 PM CDT Documentation [facility] Cancer [address] [phone] 08/25/2024 1:20 PM CDT Office Visit [address] [phone] Migue Reeder MD [address] [place] [phone] documented as of this encounter Results * [...] angiogram toevaluate for possible underlying vascular abnormality. Crew Attendant: Rivera Villagomez Ship Laborer(s): Ida Arevalo Vessels: Ultrasound guided access of [...] review the evaluation in [facility]. For details on monitored clinical parameters during the intra-service sedation time, please review the procedure nurse documentation in [facility]. Procedural detail: The risks, benefits, and [...] Following a series of exchanges, a 5 [place] Slender Glidesheath was placed in the right radial artery. Heparin 3,000 units, verapamil 2.5 mg and nitroglycerin 300 mcg were given through the sheath for vasospasm prophylaxis. A 5 [place] Cain 2 catheter was navigated into the [...] angiogram toevaluate for possible underlying vascular abnormality. Crew Attendant: Rivera Villagomez Ship Laborer(s): Ida Arevalo Vessels: Ultrasound guided access of [...] review the evaluation in [facility]. For details on monitored clinical parameters during the intra-servicesedation time, please review the procedure nurse documentation in [facility]. Procedural detail: The risks, benefits, and [...] documented. Following aseries of exchanges, a 5 [place] Slender Glidesheath was placed in the right radial artery. Heparin 3,000 units, verapamil 2.5 mg and [id number] mcg were given through the sheath for vasospasm prophylaxis. A 5 [place] Cain 2 catheter was navigated into the [...]
--- OUTSIDE RECORDS SUMMARY | 2024-06-27 10:29 | XMS_ITS | Encounter Summary ---
Author Organization [facility] Address [address] [place] [address] Care Team Providers Care Guide Name Role Phone Unavailable Primary Care Provider [...] Expiration Date Visits Re quested Visits Authorized [id number] 1 1 Encounter Details Date Type Department Care Team (Latest Contact Info) Description 08/24/2021 6:40 PM BLINDSTITCH HEMMER - 09/13/2021 7:17 PM CDT Hospital Encounter [facility] [address] [place] [phone] Thien Augustin MD [address] [place] [address] Gabriele Riley MD [address] [facility] [address] [place] [address] Olegario Villagomez MD [address] [place] [address] Valdo Arevalo MD Need new address Robbin Hook MD Buckhold, Fred R III, MD [facility] [place] [address] Neurology Discharge Disposition: Halfway Facility Social History Tobacco Use Types Packs/Day [...] Height 182.9 cm (6') 08/25/2021 8:00 AM BLINDSTITCH HEMMER Body Mass Index 21.73 08/25/2021 8:00 AM BLINDSTITCH HEMMER documented in this encounter Functional Status Functional [...] Substance abuse ??? Suicide attempt Resolved Diagnoses Arrowsmith coma scale total score 4 or 5 [...] and alcoholic cirrhosis who was transferred from [facility] on 08/24 for management of intraparenchymal hemorrhage after ingestion a bottle of crystal meth in a suicide attempt. 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 Condition at discharge: good Disposition: long term care administrator care facility Code Status At Discharge Full [...] need to change this appointment, please call [phone]. Discharge time: greater than 30 minutes. CC: [...] Care: Actual level of care at discharge: Intermediate - Skilled Facility Facility Name: (include name of person confirming admission): Actual discharge provider: [facility] Made Aware of Special Needs (if applicable): Yes RN Call Report to:[phone] Fax D/C Orders to:[phone] Transportation (company and number): [employer] Certificate of Medical Necessity rationale: Date/time of transfer: 09/13/2021 @ 6:00PM Accepting MD and contact #: Dr. Ravi Completed and Signed QV064I (if applicable): Family/Other Notified of Transfer (name/phone): Pt notified at bedside Authorization Skilled Care: Authorization for Transportation: 0149 - A Verified Qualifying Stay(Skilled Only): NOT APPLICABLE Comments: Name/Phone number: PIPER Beard [phone] * Brenna Casanova, PharmD - 09/13/2021 2:57 PM CDT [facility] Pharmacy Medication History Note The current home/prior to admission ([place]) medication list has been reviewed by a [...] please do not hesitate to contact the [facility] pharmacy dept ([phone]). Thank you. Assessment Completed by: Brenna Casanova PharmD 09/13/2021 2:53 PM * Ashleigh Jefferson, OT - 09/13/2021 2:26 PM CDT [facility] Physical Medicine and Rehabilitation Occupational Therapy Progress Note Patient: Chester Dubose . Med Record Number: [id number] Date of : 1970 Age: [age] year [...] good Activity tolerance: fair plus Current Modified Ponderay Score: 4 Cognitive/Perceptual: A&Ox3; pt is tangential [...] perform bed to chair?With min assist ?? Group Home Goal:Patient to discharge to appropriate next level [...] Dubose Jr. Date of : 1970 Room: [facility] Hospital day: 20 Interval history/Subjective: [...] Jefferson OT - 09/12/2021 2:55 PM CDT [facility] Physical Medicine and Rehabilitation Occupational Therapy Progress Note Patient: Chester Dubose Jr. Med Record Number: [id number] Date of : 1970 Age: [age] year [...] good minus Activity tolerance: good Current Modified Ponderay Score: 4 Cognitive/Perceptual: A&Ox4; tangential and easily [...] perform bed to chair?With min assist ?? Lacquer Sizer Goal:Patient to discharge to appropriate next level of inpatient care ?? If patient is discharged from the facility, this note serves as a discharge note if further occupational therapy visits did not occur. ?? Following therapy session, patient left in bed, with call light within reach and with RN, Christine smith. ?? * Mendoza Niño, LEATHER DRESSER - 09/12/2021 1:52 PM CDT New Facility Placement Referral source: PT/OT Date of referral:09/12/2021 Admitted from: [facility] Special Needs: Patient Goal (short term and shelter): Short term Level of Care (SNF/Medicaid NH/Rehab/Lacquer Sizer Care/LTACH): SNF Spoke with (Phone number, if not patient. Family participation encouraged): Family Contacted: Yes List of facilities provided (within patient geographic preference): Yes Referrals initiated: Continued Care and Services - Admitted Since 08/24/2021 Destination Service Provider Request Status Selected Services Address Phone Fax Patient Preferred [facility] Pending - Request Sent N/A [address] [facility] [address] -- Current Capacity last updated by Katia Gonzalez on 02/01/2021 1242 BEDS AVAILABLE!! Let me know if you need anything :) , Katia Carlos [phone] [facility] Pending - Request Sent N/A [address] [facility] [phone] -- [facility] Pending - Request Sent N/A [address] [facility] [address] [phone] -- [facility] Pending - Request Sent N/A [address] [facility] [address] -- [place] [facility] Pending - Request Sent N/A [address] [facility] [address] -- Current Capacity last updated by Marissa Rivera on 09/08/2021 0521 We currently have male and female rehabilitation beds available. , We will accept 10-day Post-COVID. , C, Essence, AETNA, Medicare and Active-Medicaid. , , Please call Marissa with any questions or for additional information. , , Note: (Starting September 16 Li Mcclendon will be your new Silver Service Waiter to contact with [facility], the number will remain the same [phone], email: [email or web address]) [facility] Pending - Request Sent N/A [address] [facility] [address] -- [facility] Pending - Request Sent N/A [address] [facility] [address] -- Internal Comment last updated by Bibi Hill, RN 09/01/2021 0938 admit coordinator, reports no male beds currently but will let us know if one opens up [facility] Pending - Request Sent N/A [address] [place] [address] -- Internal Comment last updated by Arnie Chand 09/07/2021 0853 09/07/2021 SANTINO contacted facility; Ed will f/u with Admission Director to confirm referral was received. Arnie Chand 09/07/2021 8:51 AM [facility] Pending - Request Sent N/A [address] [facility] [address] [phone] -- [facility] Pending - Request Sent N/A [address] [facility] [address] [phone] -- [facility] Pending - Request Sent N/A [address] [facility] [address] -- Internal Comment last updated by Arnie Chand 09/07/2021 0844 09/05/2021 SANTINO spoke with Tresa (Admissions) who indicated she did not receive referral. If Pt is possible long-term, facility will convert his primary insurance. SANTINO faxed referral to [phone] and confirmed Pt is vaccinated. Tresa will f/u with SANTINO after referral is reviewed. Arnie Chand 09/05/2021 11:01 AM 09/07/2021 SANTINO left message for Tresa (ext [phone]) for a referral status. Arnie Chand 09/07/2021 8:42 AM [facility] Pending - Request Sent N/A [address] [facility] [address] [phone] -- [facility] [place] Pending - Request Sent N/A [address] [place] [address] [phone] -- [facility] Pending - Request Sent N/A [address] [facility] [phone] -- [facility] Pending - Request Sent N/A [address] [address] [phone] -- Internal Comment last updated by Arnie Chand 09/05/2021 1041 09/05/2021 SW contacted facility to request referral status; SW left message for Admissions. Arnie Chand 09/05/2021 10:39 AM [facility] Pending - Request Sent N/A [address] [place] [address] [phone] -- Internal Comment last updated by Arnie Chand 09/07/2021 0856 09/05/2021 SW contacted facility to request update on referral submitted; VM left. Arnie Chand 09/05/2021 10:42 AM 09/07/2021 SW contacted facility for referral status; Left VM. Arnie Chand 09/07/2021 8:56 AM [facility] Pending - Request Sent N/A [address] [place] [address] [address] [phone] -- Internal Comment last updated by Bibi Hill, RN 09/02/2021 1313 Left message 09/02 for admissions [facility] ([facility]) Pending - Request Sent N/A [address] [place] [address] [phone] -- [facility] Pending - Request Sent N/A [facility] [address] -- [address] Pending - Request Sent N/A [address] [facility] [phone] -- [place] Pending - Request Sent N/A [address] [place] [address] [phone] -- [facility] Pending - Request Sent N/A [address] [facility] [address] -- [facility] Pending - Request Sent N/A [address] [facility] [address] -- [facility] Pending - Request Sent N/A [address] [facility] [address] [phone] -- [facility] Pending - Request Sent N/A [address] [facility] [phone] -- [facility] Declined History of violence and/or drug/alcohol abuse N/A [address] [facility] [phone] -- Current Capacity last updated by Ching Reyna on 05/13/2021 1316 Cedric [place] has several semi or private rooms available for female or male residents. We have just opened our short term wing again, they are all private rooms. We take Medicare, Medicaid, Medicaid pending, Aetna, and [facility]. [facility] Declined Facility cannot provide for patient's needs N/A [address] [facility] [phone] -- [facility] Declined No contract with patient's insurance carrier N/A [address] [facility] [phone] -- [facility] Declined Facility cannot provide for patient's needs N/A [address] [facility] [address] [phone] -- [facility] Declined Facility cannot provide for patient's needs, Cannot meet Pt's Psychiatric Needs N/A [address] [address] -- Internal Comment last updated by Arnie Chand 09/07/2021 0849 09/07/2021 SANTINO contacted facility; Nuria requested the fax to be resubmitted. SW resent and will await f/u. Arnie Chand 09/07/2021 8:44 AM [facility] Declined Suicidal risk N/A [address] [place] [address] -- Internal Comment last updated by Arnie Chand 09/07/2021 0840 09/05/2021 SW called Admissions to f/u on referral update; Flor Susi([phone]) was unable to locate the referral during the call and will call SW back when it's located. Arnie Chand 09/05/2021 10:36 AM 09/06/2021 SANTINO spoke with Flor ([phone]) for referral update; Indicated she did not receive the fax; SANTINO resubmitted fax for review. Arnie Chand 09/06/2021 8:55 AM 09/07/2021 SANTINO contacted Flor to inquire about the status of referral; Pt declined due to danger to self. Arnie Chand 09/07/2021 8:37 AM [facility] Declined Facility cannot provide for patient's needsN/A [address] [facility] [address] [phone] -- Internal Comment last updated by Arnie Chand 09/08/2021 0829 09/07/2021 SANTINO contacted facility to request status update on referral; SW left message requesting a returned call. Arnie Chand 09/07/2021 8:41 AM 09/07/2021 Deven indicated that referral was not received via [employer]; SW resubmitted fax and answered questions. Deven will f/u with status. Arnie Chand 09/07/2021 10:40 AM 09/07/2021 SANTINO spoke w/ Emi who confirmed receipt of referral. Update on referral status will be provided by 09/08 morning. Arnie Chand 09/07/2021 2:48 PM 09/08/2021 SW spoke w/ Mei; DON declined due to facility's inability to meet Pt's needs. Arnie Chand 09/08/2021 8:29 AM [facility] Declined Facility cannot provide for patient's needs, History of violence and/or drug/alcohol abuse, Cannot meet patient's psychosocial needs N/A [address] [facility] [address] [phone] -- Internal Comment last updated by Arnie Chand 09/05/2021 1055 09/05/2021 SW contacted facility to request referral status; Lamar (Admission) denied Pt due to psych services/poly substance and facility is primary geriatric. Arnie Chand 09/05/2021 10:55 AM [facility] Declined Facility cannot provide for patient's needs N/A [address] [facility] [phone] -- [facility] Declined No contract with patient's insurance carrier N/A [address] [facility] [phone] -- [facility] Declined Facility cannot provide for patient's needs N/A [address] [place] [address] [phone] -- monitoring facility responses Comments: Name: PIPER Beard * Miya Fonseca RN - 09/12/2021 1:30 PM CDT Case Management Progress Note Anticipated level of care at discharge: Intermediate - Skilled Facility Discharge Plan: SNF, SW [...] Medications: Transportation: Name: Miya Fonseca RN Phone: [phone] * Lamar Bowne PT - 09/12/2021 10:12 AM CDT [facility] Physical Medicine and Rehabilitation PhysicalTherapy Discharge Note Patient: Chester Dubose Jr. Med Record Number: [id number] Date of : 1970 Age: [age] year [...] tolerance: good Modified Everardo Score: Current Modified Ponderay Score: 4 Treatment/therapeutic Exercise: session focused on [...] 100 feet with Independent (MET 09/09/21) ?? Group Home Goal(s): Patient to discharge to appropriate next [...] Dubose Jr. Date of : 1970 Room: [facility] Hospital day: 19 Hospital course: [...] and sitter discontinued [facility] to [facility]. Currently pending placement in shelter facility. Interval history/Subjective: Patient doing well. 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 Seroquel 100 BID Haldol 5mg d6qoppw PRN PO or IM??for severe non redirectable agitation ?? #HTN Emergency, resolved - SBP goal <140 - PRN hydralazine and labetolol for SBP >140 - TTE (08/25) with EF of 76%?? - Not on any home medications. Initiate if needed ?? 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 #Urinary Retention, resolved - Bladder scan [...] Dubose Jr. Date of : 1970 Room: [facility] Hospital day: 18 Hospital course: [...] sitter di continued prior to [facility]. Interval history/Subjective: No events overnight. 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 #Urinary Retention, resolved - Bladder scan [...] Dubose Jr. Date of : 1970 Room: [facility]/ Hospital day: 17 Hospital course: Chester Dubose Jr. is a 51 year old male with a history of of bipolar disorder, polysubstance abuse, and alcoholic cirrhosis who was transferred from [facility] on 08/24 for management of intraparenchymal hemorrhage [...] sitter di continued prior to [facility]. Interval history/Subjective: No complaints this AM. 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 Seroquel 100 BID Haldol 5mg [id number] PRN PO or IM??for severe non redirectable [...] --- GI consulted, follow up with outpatient scheduling representative ?? #Urinary Retention, resolved - Bladder scan [...] Dubose Jr. 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 Seroquel 100 BID Haldol 5mg b4dffvh PRN PO or IM??for severe non redirectable [...] --- GI consulted, follow up with outpatient scheduling representative ?? #Urinary Retention, resolved - Delirium and [...] SW reviewed Pt's chart. Pt moved to [facility] for continuity of care and coordination of discharge plan. SANTINO spoke with Emi ([facility]) to provide status on referral. Facility is unable to meet Pt's needs at this time. Continued Care and Services - Admitted Since 08/24/2021 Destination Service Provider Request Status Selected Services Address Phone Fax Patient Preferred [facility] Pending - Request Sent N/A [address] [facility] [address] -- Current Capacity last updated by Katia Gonzalez on 02/01/2021 1242 BEDS AVAILABLE!! Let me know if you need anything :Katia Lamb [phone] [facility] Pending - Request Sent N/A [address] [facility] [address] -- [facility] Pending - Request Sent N/A [address] [facility] [facility] [address] -- [facility] Pending - Request Sent N/A [address] [facility] [address] -- [facility] Pending - Request Sent N/A [address] [facility] [address] -- Current Capacity last updated by Marissa Rivera on 09/08/2021 0521 We currently have male and female rehabilitation beds available. , We will accept 10-day Post-COVID. , UHC, Essence, AETNA, Medicare and Active-Medicaid. , , Please call Marissa with any questions or for additional information. , , Note: (Starting September 16 Li Mcclendon will be your new Silver Service Waiter to contact with [facility], the number will remain the same [phone], email: [email or web address]) [facility] Pending - Request Sent N/A [address] [facility] [address] -- [facility] Pending - Request Sent N/A [address] [facility] [phone] -- Internal Comment last updated by Bibi Hill, RN 09/01/2021 0938 admit coordinator, reports no male beds currently but will let us know if one opens up [facility] Pending - Request Sent N/A [address] [facility] [address] -- Internal Comment last updated by Arnie Chand 09/07/2021 0853 09/07/2021 SW contacted facility; Ed will f/u with Admission Director to confirm referral was received. Arnie Chand 09/07/2021 8:51 AM [facility] Pending - Request Sent N/A [address] [facility] [address] [phone] -- [facility] Pending - Request Sent N/A [address] [facility] [address] [phone] -- [facility] Pending - Request Sent N/A [address] [facility] [address] -- Internal Comment last updated by Arnie Chand 09/07/2021 0844 09/05/2021 SW spoke with Tresa (Admissions) who indicated she did not receive referral. If Pt is possible long-term, facility will convert his primary insurance. SANTINO faxed referral to [phone] and confirmed Pt is vaccinated. Tresa will f/u with SANTINO after referral is reviewed. Arnie Chand 09/05/2021 11:01 AM 09/07/2021 SW left message for Tresa (ext [phone]) for a referral status. Arnie Chadn 09/07/2021 8:42 AM [facility] Pending - Request Sent N/A [address] [facility] [address] [phone] -- [facility] Pending - Request Sent N/A [address] [facility] [address] [phone] -- [facility] Pending - Request Sent N/A [address] [facility] [facility] [address] [phone] -- [facility] Pending - Request Sent N/A [address] [place] [address] [phone] -- Internal Comment last updated by Arnie Chand 09/05/2021 1041 09/05/2021 SW contacted facility to request referral status; SW left message for Admissions. Arnie Chand 09/05/2021 10:39 AM [facility] Pending - Request Sent N/A [address] [place] [address] [phone] -- Internal Comment last updated by Arnie Chand 09/07/2021 0856 09/05/2021 SW contacted facility to request update on referral submitted; VM left. Arnie Chand 09/05/2021 10:42 AM 09/07/2021 SANTINO contacted facility for referral status; Left VM. Arnie Chand 09/07/2021 8:56 AM [facility] Pending - Request Sent N/A [address] [address] [phone] -- Internal Comment last updated by Bibi Hill, RN 09/02/2021 1313 Left message 09/02 for admissions [facility] Declined History of violence and/or drug/alcohol abuse N/A [address] [facility] [phone] -- Current Capacity last updated by Ching Reyna on 05/13/2021 1316 Cedric [facility] has several semi or private rooms available for female or male residents. We have just opened our short term wing again, they are all private rooms. We take Medicare, Medicaid, Medicaid pending, Aetna, and [facility]. [facility] Declined Facility cannot provide for patient's needs N/A [address] [facility] [address] -- [facility] Declined No contract with patient's insurance carrier N/A [address] [facility] [phone] -- [facility] Declined Facility cannot provide for patient's needs N/A [address] [facility] [address] [phone] -- [facility] Declined Facility cannot provide for patient's needs, Cannot meet Pt's Psychiatric Needs N/A [address] [place] [phone] -- Internal Comment last updated by Arnie Chand 09/07/2021 0849 09/07/2021 SANTINO contacted facility; Nuria requested the fax to be resubmitted. SW resent and will await f/u. Arnie Chand 09/07/2021 8:44 AM [facility] Declined Suicidal risk N/A [address] [place] [address] -- Internal Comment last updated by Arnie Chand 09/07/2021 0840 09/05/2021 SW called Admissions to f/u on referral update; Flor Goldman([phone]) was unable to locate the referral during the call and will call SW back when it's located. Arnie Chand 09/05/2021 10:36 AM 09/06/2021 SW spoke with Flor ([phone]) for referral update; Indicated she did not receive the fax; SW resubmitted fax for review. Arnie Chand 09/06/2021 8:55 AM 09/07/2021 SW contacted Flor to inquire about the status of referral; Pt declined due to danger to self. Arnie Chand 09/07/2021 8:37 AM [facility] Declined Facility cannot provide for patient's needsN/A [address] [facility] [address] [phone] -- Internal Comment last updated by Arnie Chand 09/08/2021 0829 09/07/2021 SW contacted facility to request status update on referral; SW left message requesting a returned call. Arnie Chand 09/07/2021 8:41 AM 09/07/2021 Deven indicated that referral was not received via [employer] Link; SW resubmitted fax and answered questions. Deven will f/u with status. Arnie Chand 09/07/2021 10:40 AM 09/07/2021 SW spoke w/ Emi who confirmed receipt of referral. Update on referral status will be provided by 09/08 morning. Arnie Chand 09/07/2021 2:48 PM 09/08/2021 SW spoke w/ Emi; DON declined due to facility's inability to meet Pt's needs. Arnie Chand 09/08/2021 8:29 AM [facility] Declined Facility cannot provide for patient's needs, History of violence and/or drug/alcohol abuse, Cannot meet patient's psychosocial needs N/A [address] [facility] [address] -- Internal Comment last updated by Arnie Chand 09/05/2021 1055 09/05/2021 SW contacted facility to request referral status; Lamar (Admission) denied Pt due to psych services/poly substance and facility is primary geriatric. Arnie Chand 09/05/2021 10:55 AM [facility] Declined Facility cannot provide for patient's needs N/A [address] [facility] [address] -- [facility] Declined No contract with patient's insurance carrier N/A [address] [facility] [facility] [id number] -- [facility] Declined Facility cannot provide for patient's needs N/A [address] [place] [id number] -- Transportation (if ambulance rationale): Transportation at discharge: (jennifer determined by disposition) Anticipated Discharge Date: Anticipated Discharge Date: 09/12/21 PIPER Dumont MBA Sign Out Clerk [phone] 09/08/2021 8:32 AM * Robyn Hoang RN [...] Dubose Jr. Date of : 1970 Room: [facility] Hospital day: 14 Hospital course: [...] suicide attempt. Interval history/Subjective: Patient arrives [facility] this afternoon. 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 Seroquel 100 BID Haldol 5mg [id number] PRN PO or IM??for severe non redirectable [...] --- GI consulted, follow up with outpatient scheduling representative ?? #Urinary Retention, resolved - Delirium and [...] Bowen, PT - 09/07/2021 4:07 PM CDT [facility] Physical Medicine and Rehabilitation PhysicalTherapy Progress Note Patient: Chester Dubose Jr. Med Record Number: [id number] Date of : 1970 Age: [age] year [...] Activity Tolerance: Patient's activity tolerance: good Modified Ponderay Score: Current Modified Ponderay Score: 4 Treatment/therapeutic Exercise: session focused on [...] 100 feet with Independent (updated 09/07/21) ?? Group Home Goal(s): Patient to discharge to appropriate next [...] Team is working on a transfer to [facility] as a secondary option if there is no accepting facility. SW continues to pursue SNF. [employer] willprovide an update on the status of the referral submitted today. Continued Care and Services - Admitted Since 08/24/2021 Destination Service Provider Request Status Selected Services Address Phone Fax Patient Preferred [facility] Pending - Request Sent N/A [address] [facility] [address] -- Current Capacity last updated by Katia Gonzalez on 02/01/2021 1242 BEDS AVAILABLE!! Let me know if you need anything :Katia Lamb [phone] [facility] Pending - Request Sent N/A [address] [facility] [address] -- DAT [facility] Pending - Request Sent N/A [address] [facility] [phone] -- [facility] Pending - Request Sent N/A [address] [facility] [phone] -- [facility] Pending - Request Sent N/A [address] [facility] [address] -- Current Capacity last updated by Marissa Rivera on 08/31/2021 1001 We currently have (2) Short-Stay Rehabilitation Beds Available. , , We will accept 10-day Post-COVID. , UHC, Essence, AETNA, Medicare and Active-Medicaid. , , Please call Marissa with any questions or for additional information. [facility] Pending - Request Sent N/A [address] [facility] [address] -- [facility] Pending - Request Sent N/A [address] [facility] [address] -- Internal Comment last updated by Bibi Hill, RN 09/01/2021 0938 admit coordinator, reports no male beds currently but will let us know if one opens up [facility] Pending - Request Sent N/A [address] [facility] [place] [address] -- Internal Comment last updated by Arnie Chand 09/07/2021 0853 09/07/2021 SW contacted facility; Ed will f/u with Admission Director to confirm referral was received. Arnie Chand 09/07/2021 8:51 AM [facility] Pending - Request Sent N/A [address] [facility] [address] [phone] -- [facility] Pending - Request Sent N/A [address] [place] [phone] -- Internal Comment last updated by Arnie Chand 09/07/2021 0849 09/07/2021 SANTINO contacted facility; Nuria requested the fax to be resubmitted. SW resent and will await f/u. Arnie Chand 09/07/2021 8:44 AM [facility] Pending - Request Sent N/A [address] [facility] [address] [phone] -- Internal Comment last updated by Arnie Chand 09/07/2021 1448 09/07/2021 SANTINO contacted facility to request status update on referral; SANTINO left message requesting a returned call. Arnie Chand 09/07/2021 8:41 AM 09/07/2021 Deven indicated that referral was not received via [employer]; SANTINO resubmitted fax and answered questions. Deven will f/u with status. Arnie Chand 09/07/2021 10:40 AM 09/07/2021 SANTINO spoke w/ Emi who confirmed receipt of referral. Update on referral status will be provided by 09/08 morning. Arnie Chand 09/07/2021 2:48 PM [facility] Pending - Request Sent N/A [address] [facility] [address] -- [facility] Pending - Request Sent N/A [address] [facility] [address] -- Internal Comment last updated by Arnie Chand 09/07/2021 0844 09/05/2021 SANTINO spoke with Tresa (Admissions) who indicated she did not receive referral. If Pt is possible long-term, facility will convert his primary insurance. SANTINO faxed referral to [phone] and confirmed Pt is vaccinated. Tresa will f/u with SANTINO after referral is reviewed. Arnie Chand 09/05/2021 11:01 AM 09/07/2021 SANTINO left message for Tresa (ext [phone]) for a referral status. Arnie Chand 09/07/2021 8:42 AM [facility] Pending - Request Sent N/A [facility] [phone] -- [facility] Pending - Request Sent N/A [address] [facility] [address] [phone] -- [facility] Pending - Request Sent N/A [address] [facility] [phone] -- [facility] Pending - Request Sent N/A [address] [place] [address] [phone] -- Internal Comment last updated by Arnie Chand 09/05/2021 1041 09/05/2021 SW contacted facility to request referral status; SW left message for Admissions. Arnie Chand 09/05/2021 10:39 AM [facility] Pending - Request Sent N/A [address] [facility] [facility] [address] [phone] -- Internal Comment last updated by Arnie Chand 09/07/2021 0856 09/05/2021 SW contacted facility to request update on referral submitted; VM left. Arnie Chand 09/05/2021 10:42 AM 09/07/2021 SW contacted facility for referral status; Left SRINIVAS. Arnie Chand 09/07/2021 8:56 AM [facility] Pending - Request Sent N/A [address] [address] [phone] -- Internal Comment last updated by Bibi Hill, RN 09/02/2021 1313 Left message 09/02 for admissions [facility] Declined History of violence and/or drug/alcohol abuse N/A [address] [facility] [phone] -- Current Capacity last updated by Ching Reyna on 05/13/2021 1316 Cedricjeff Hurtado has several semi or private rooms available for female or male residents. We have just opened our short term wing again, they are all private rooms. We take Medicare, Medicaid, Medicaid pending, Aetna, and [facility]. [facility] Declined Facility cannot provide for patient's needs N/A [address] [facility] [phone] -- [facility] Declined No contract with patient's insurance carrier N/A [address] [facility] [phone] -- [facility] Decl[facility] Facility cannot provide for patient's needs N/A 43[address] [facility] [address] [phone] -- [facility] Declined Suicidal risk N/A 2 [facility] [address] [phone] -- Internal Comment last updated by Arnie Chand 09/07/2021 0840 09/05/2021 SW called Admissions to f/u on referral update; Flor Goldman([phone]) was unable to locate the referral during the call and will call SW back when it's located. Arnie Chand 09/05/2021 10:36 AM 09/06/2021 SW spoke with Flor ([phone]) for referral update; Indicated she did not receive the fax; SANTINO resubmitted fax for review. Arnie Chand 09/06/2021 8:55 AM 09/07/2021 SW contacted Flor to inquire about the status of referral; Pt declined due to danger to self. Arnie Chand 09/07/2021 8:37 AM [facility] Declined Facility cannot provide for patient's needs, History of violence and/or drug/alcohol abuse, Cannot meet patient's psychosocial needs N/A [address] [facility] [address] [phone] -- Internal Comment last updated by Arnie Chand 09/05/2021 1055 09/05/2021 SW contacted facility to request referral status; Lamar (Admission) denied Pt due to psych services/poly substance and facility is primary geriatric. Arnie Chand 09/05/2021 10:55 AM [facility] Declined Facility cannot provide for patient's needs N/A [address], [facility] [address] [phone] -- [facility] Declined No contract with patient's insurance carrier N/A [address] [facility] [facility] [id number] -- [facility] Declined Facility cannot provide for patient's needs N/A [address] [place] [address] [phone] -- Transportation (if ambulance rationale): Transportation at discharge: (jennifer determined by disposition) Anticipated Discharge Date: Anticipated Discharge Date: 09/12/21 PIPER Dumont MBA Sign Out Clerk [phone] 09/07/2021 2:50 PM * Sofya Sutherland OT - 09/07/2021 1:12 PM CDT [facility] Physical Medicine and Rehabilitation Occupational Therapy Progress Note Patient: Chester Dubose Jr. Med Record Number: [id number] Date of : 1970 Age: [age] year [...] [facility] Upper Extremity Dressing: Stand By Assist [...] will perform bed to chair?With min assist Group Home Goal:Patient to discharge to appropriate next level of inpatient care If patient is discharged from the facility, this note serves as a discharge note if further occupational therapy visits did not occur. Following therapy session, patient left in bed, with call light within reach and with RNCori aware. * Debi Valle - 09/07/2021 11:12 AM CDT [facility] Cognitive Evaluation Patient: Chester Dubose . Med Record Number: [id number] Date of : 1970 Age: [age] year old In addition to the 1:1 evaluation of the patient, additional eval time was spent completing the chart review prior to the assessment, completing the multidisciplinary plan of care and education plan post evaluation and communicating results of the eval to other treatment team members. PPE: PPE donned by TOBACCO DRYING MACHINE OPERATOR during this session - N95 mask, gown, [...] difficulty understanding context, mumbling utterances and jargon. TOBACCO DRYING MACHINE OPERATOR recommends speech, language, and cog-com services at this time. Discharge Recommendations: Patient will benefit from inpatient multidisciplinary therapies Speech therapy is recommended to improve speech, language, and cognitive function. Subjective: Mental Status: Confused Patient Goals:Pt was agreeable to participating in assessment Pain: Patient reported no pain Objective: Cognitive-Linguistic Assessment: Patient completed the [facility] Mental Status ([facility]Examination with the following results: Orientation: 0/3 Math Reasoning: Not assessed Fluency Namin/3 Delayed Recall: Not assessed Working Memory: 0/3 Clock Drawing Task: Not assessed Visual spatial: Not assessed Paragraph Recall: Not assessed Scoring ??? High School Education: 27-30=Normal, 21-26= MNDC*, 1-20=Dementia. ??? Less than High School Education: 25-30=Normal, 20=24=MNCD*,1-19=Dementia. * Mild Neurocognitive Disorder Assessment: Upon arrival and initiation of [facility] assessment, pt perseverated on various numbers (I.e. 77, 121, 2971, 1971) after being asked his birthday. Perseveration's on numbers (recited by the year 1975 ) continued throughout the visit and was used as the pts response for all orientation questions. Pt was asked to name animals for the fluency naming task and pt was observed to answer with mice, rey, 71, 1976 . 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 Group Home Goals: Patient to be independent/baseline with speech/language/cognitive/swallowing [...] parietal occipital area and was transferred to [facility] for further management. On [facility] arrival NIHSS was 20 and CTH showed [...] Imaging: ?? Labs: Reviewed. Assessment Chester Morgan Sedrick Manuel??is a 51 year old??male??presenting for management [...] anticoagulation - Will try to transfer to [address] [place] [address] while waiting for disposition ?? #Active SI, [...] --- GI consulted, follow up with outpatient scheduling representative ?? #Urinary Retention, resolved - Delirium and [...] Services Address Phone Fax Patient Preferred [facility] Pending - Request Sent N/A [address] [facility] [address] -- Current Capacity last updated by Katia Gonzalez on 02/01/2021 1242 BEDS AVAILABLE!! Let me know if you need anything :) Katia [phone] [facility] Pending - Request Sent N/A [address] [facility] [address] -- [facility] Pending - Request Sent N/A [address] [facility] [phone] -- [facility] Pending - Request Sent N/A [address] [facility] [address] -- [facility] Pending - Request Sent N/A [address] [facility] [address] -- Current Capacity last updated by Marissa Rivera on 08/31/2021 1001 We currently have (2) Short-Stay Rehabilitation Beds Available. , , We will accept 10-day Post-COVID. , C, Essence, AETNA, Medicare and Active-Medicaid. , , Please call Marissa with any questions or for additional information. [facility] Pending - Request Sent N/A [address] [facility] [address] -- [facility] Pending - Request Sent N/A 73[address] [facility] [address] -- Internal Comment last updated by Bibi Hill, RN 09/01/2021 0938 admit coordinator, reports no male beds currently but will let us know if one opens up [facility] Pending - Request Sent N/A [address] [facility] [place] [address] -- Internal Comment last updated by Arnie Chand 09/07/2021 0853 09/07/2021 SW contacted facility; Ed will f/u with Admission Director to confirm referral was received. Arnie Chand 09/07/2021 8:51 AM [facility] Pending - Request Sent N/A [address] [facility] [address] [phone] -- [facility] Pending - Request Sent N/A [address] [place] [phone] -- Internal Comment last updated by Arnie Chand 09/07/2021 0849 09/07/2021 SANTINO contacted facility; Nuria requested the fax to be resubmitted. SANTINO resent and will await f/u. Arnie Chand 09/07/2021 8:44 AM [facility] Pending - Request Sent N/A [address] [facility] [address] [phone] -- Internal Comment last updated by Arnie Chand 09/07/2021 1041 09/07/2021 SANTINO contacted facility to request status update on referral; SANTINO left message requesting a returned call. Arnie Chand 09/07/2021 8:41 AM 09/07/2021 Deven indicated that referral was not received via [employer]; SANTINO resubmitted fax and answered questions. Deven will f/u with status. Arnie Chand 09/07/2021 10:40 AM [facility] Pending - Request Sent N/A 152 [facility] [address] [phone] -- [facility] Pending - Request Sent N/A [address], [place] [address] -- Internal Comment last updated by Arnie Chand 09/07/2021 0844 09/05/2021 SW spoke with Tresa (Admissions) who indicated she did not receive referral. If Pt is possible long-term, facility will convert his primary insurance. SANTINO faxed referral to [phone] and confirmed Pt is vaccinated. Tresa will f/u with SANTINO after referral is reviewed. Arnie Chand 09/05/2021 11:01 AM 09/07/2021 SW left message for Tresa (ext [phone]) for a referral status. Arnie Chand 09/07/2021 8:42 AM [facility] Pending - Request Sent N/A [address] [facility] [facility] [address] [facility] [address] -- [facility] Pending - Request Sent N/A [address] [facility] [address] -- [facility] Pending - Request Sent N/A [address] [facility] [phone] -- [facility] Pending - Request Sent N/A [address] [place] [address] [phone] -- Internal Comment last updated by Arnie Chand 09/05/2021 1041 09/05/2021 SW contacted facility to request referral status; SW left message for Admissions. Arnie Chand 09/05/2021 10:39 AM [facility] Pending - Request Sent N/A [address] [place] [address] [phone] -- Internal Comment last updated by Arnie Chand 09/07/2021 0856 09/05/2021 SANTINO contacted facility to request update on referral submitted; VM left. Arnie Chand 09/05/2021 10:42 AM 09/07/2021 SW contacted facility for referral status; Left VM. Arnie Chand 09/07/2021 8:56 AM [facility] Pending - Request Sent N/A [address] [address] [phone] -- Internal Comment last updated by Bibi Hill RN 09/02/2021 1313 Left message 09/02 for admissions [facility] Declined History of violence and/or drug/alcohol abuse N/A [address] [facility] [phone] -- Current Capacity last updated by Ching Reyna on 05/13/2021 1316 C[facility]ric Hurtado has several semi or private rooms available for female or male residents. We have just opened our short term wing again, they are all private rooms. We take Medicare, Medicaid, Medicaid pending, Aetna, and [facility]. [facility] Declined Facility cannot provide for patient's needs N/A [address] [facility] [phone] -- [facility] Declined No contract with patient's insurance carrier N/A 9500 [facility] [phone] -- [facility] Declined Facility cannot provide for patient's needs N/A 4315 [facility] [address] [phone] -- [facility] Declined Suicidal risk N/A 2 [facility] [address] [phone] -- Internal Comment last updated by Arnie Chand 09/07/2021 0840 09/05/2021 SW called Admissions to f/u on referral update; Flor Goldman([phone]) was unable to locate the referral during the call and will call SW back when it's located. Arnie Chand 09/05/2021 10:36 AM 09/06/2021 SW spoke with Flor ([phone]) for referral update; Indicated she did not receive the fax; SANTINO resubmitted fax for review. Arnie Chand 09/06/2021 8:55 AM 09/07/2021 SW contacted Flor to inquire about the status of referral; Pt declined due to danger to self. Arnie Chand 09/07/2021 8:37 AM [facility] Declined Facility cannot provide for patient's needs, History of violence and/or drug/alcohol abuse, Cannot meet patient's psychosocial needs N/A [address] [facility] [address] -- Internal Comment last updated by Arnie Chand 09/05/2021 1055 09/05/2021 SANTINO contacted facility to request referral status; Lamar (Admission) denied Pt due to psych services/poly substance and facility is primary geriatric. Arnie Chand 09/05/2021 10:55 AM [facility] Declined Facility cannot provide for patient's needs N/A 35[address] [facility] [address] -- [facility] Declined No contract with patient's insurance carrier N/A [address] [facility] [phone] -- [facility] Declined Facility cannot provide for patient's needs N/A [address] [place] [address] [phone] -- Transportation (if ambulance rationale): Transportation at discharge: (jennifer determined by disposition) Anticipated Discharge Date: Anticipated Discharge Date: 09/08/21 Contacts: Extended Emergency Contact Information Primary Emergency Contact: Henok Stahl [facility] Mobile Relation: Friend Secondary Emergency Contact: Benson Dubose [facility] Mobile Relation: Sister Mother: tracee dubose Mobile Have they been contacted? PIPER Dumont MBA Sign Out Clerk [phone] 09/07/2021 8:54 AM * Valdo Arevalo MD [...] disorder POA: Yes Methamphetamine intoxication POA: Yes Arrowsmith coma scale total score 4 or 5 [...] LDL, LDLCALC, LDLDIRECT, CHOLHDL in the last 78351 hours. Recent Labs Component Name 08/26/21 0032 [...] Component Value - Date/Time CULTURE SPUTUM+GRAM STAIN [[id number]] (Abnormal) (Susceptibility) Collected: 08/27/21 1705 Lab Status: [...] Susceptible <=0.5 ug/mL MANJIT Final CULTURE BLOOD [[id number]] (Normal) Collected: 08/27/211704 Lab Status: Final result Specimen: Blood Peripheral Updated: 09/01/21 2100 Culture No growth day 5 CULTURE BLOOD [[id number]] (Normal) Collected: 08/27/211704 Lab Status: Final result Specimen: Blood Peripheral Updated: 09/01/21 2100 Culture No growth day 5 Valdo Arevalo MD 8:17 AM * Claudette Esteves - 09/06/2021 7:47 PM CDT EMELY JIMENEZ Color Tester responded to a code green in patient's [...] disorder POA: Yes Methamphetamine intoxication POA: Yes Arrowsmith coma scale total score 4 or 5 [...] LDL, LDLCALC, LDLDIRECT, CHOLHDL in the last 66186 hours. Recent Labs Component Name 08/26/21 0032 [...] Component Value - Date/Time CULTURE SPUTUM+GRAM STAIN [[id number]] (Abnormal) (Susceptibility) Collected: 08/27/21 1705 Lab Status: [...] Susceptible <=0.5 ug/mL MANJIT Final CULTURE BLOOD [[id number]] (Normal) Collected: 08/27/211704 Lab Status: Final result Specimen: Blood Peripheral Updated: 09/01/212099 Culture No growth day 5 CULTURE BLOOD [[id number]] (Normal) Collected: 08/27/211704 Lab Status: Final result Specimen: Blood Peripheral Updated: 09/01/212099 Culture No growth day 5 Valdo Arevalo MD 2:48 PM * Sharon Castellanos, OT - 09/06/2021 1:30 PM CDT [facility] Physical Medicine and Rehabilitation Occupational Therapy Progress Note Patient: Chester Dubose Jr. Med Record Number: [id number] Date of : 1970 Age: [age] year [...] fair Modified Everardo Score: 4 Current Modified Ponderay Score: 4 Cognitive/Perceptual: pt alert Ox1-2 and [...] bed to chair With min assist ?? Group Home Goal: Patient to discharge to appropriate next level of inpatient care If patient is discharged from the facility, this note serves as a discharge note if further occupational therapy visits did not occur. Following therapy session, patient left in bed. * Bonnie Callejas, PT - 09/06/2021 12:24 PM CDT [facility] Physical Medicine and Rehabilitation PhysicalTherapy Progress Note Patient: Chester Dubose Jr. Med Record Number: [id number] Date of : 1970 Age: [age] year [...] Activity Tolerance: Patient's activity tolerance: fair Modified Ponderay Score: 4 Current Modified Ponderay Score: 4 Treatment/therapeutic Exercise: bed mobility/transfer training, [...] Patient will ambulate 100 feet with SBA Group Home Goal(s): Patient to discharge to appropriate next [...] exceptions per RN Estimated Energy Needs: KCAL: 0386-1571 (25-30kcal/kg of ABW) Protein (g): 73-87 (1-1.2g/kg [...] Selected Services Address Phone Fax Patient Preferred [facility] Pending - Request Sent N/A [address] [facility] [address] -- Current Capacity last updated by Katia Gonzalez on 02/01/2021 1242 BEDS AVAILABLE!! Let me know if you need anything :) Katia Carlos [phone] [facility] Pending - Request Sent N/A [address] [facility] [phone] -- [facility] Pending - Request Sent N/A [address] [facility] [phone] -- [facility] Pending - Request Sent N/A [address] [facility] [phone] -- [facility] Pending - Request Sent N/A [address] [facility] [phone] -- Current Capacity last updated by Marissa Rivera on 08/31/2021 1001 We currently have (2) Short-Stay Rehabilitation Beds Available. , , We will accept 10-day Post-COVID. , C, Essence, AETNA, Medicare and Active-Medicaid. , , Please call Marissa with any questions or for additional information. [facility] Pending - Request Sent N/A [address] [facility] [address] -- [facility] Pending - Request Sent N/A [address] [facility] [address] -- Internal Comment last updated by Bibi Hill, RN 09/01/2021 0938 admit coordinator, reports no male beds currently but will let us know if one opens up [facility] Pending - Request Sent N/A [address] [facility] [address] -- [facility] Pending - Request Sent N/A [address] [facility] [address] [phone] -- [facility] Pending - Request Sent N/A [address] [place] [phone] -- [facility] Pending - Request Sent N/A [address] [facility] [address] [phone] -- Internal Comment last updated by Arnie Chand 09/07/2021 0838 09/05/2021 SW called Admissions to f/u on referral update; Flor Susi([phone]) was unable to locate the referral during the call and will call SW back when it's located. Arnie Chand 09/05/2021 10:36 AM 09/06/2021 SANTINO spoke with Flor ([phone]) for referral update; Indicated she did not receive the fax; SANTINO resubmitted fax for review. Arnie Chand 09/06/2021 8:55 AM [facility] Pending - Request Sent N/A [address] [facility] [address] [phone] -- [facility] Pending - Request Sent N/A [address] [facility] [address] [phone] -- [facility] Pending - Request Sent N/A [address] [facility] [address] -- Internal Comment last updated by Arnie Chand 09/05/2021 1102 09/05/2021 SANTINO spoke with Tresa (Admissions) who indicated she did not receive referral. If Pt is possible long-term, facility will convert his primary insurance. SANTINO faxed referral to [phone] and confirmed Pt is vaccinated. Tresa will f/u with SANTINO after referral is reviewed. Arnie Chand 09/05/2021 11:01 AM [facility] Pending - Request Sent N/A [address] [facility] [address] [phone] -- [facility] Pending - Request Sent N/A [address] [facility] [address] [phone] -- [facility] Pending - Request Sent N/A [address] [facility] [address] [phone] -- [facility] Pending - Request Sent N/A [address] [place] [address] [phone] -- Internal Comment last updated by Arnie Chand 09/05/2021 1041 09/05/2021 SW contacted facility to request referral status; left message for Admissions. Arnie Chand 09/05/2021 10:39 AM [facility] Pending - Request Sent N/A [address] [facility] [place] [address] [phone] -- Internal Comment last updated by Arnie Chand 09/05/2021 1043 09/05/2021 SW contacted facility to request update on referral submitted; VM left. Arnie Chand 09/05/2021 10:42 AM [facility] Pending - Request Sent N/A [address] [address] [phone] -- Internal Comment last updated by Bibi Hill, RN 09/02/2021 1313 Left message 09/02 for admissions [facility] Declined History of violence and/or drug/alcohol abuse N/A [address] [facility] [address] -- Current Capacity last updated by Ching Reyna on 05/13/2021 1316 Cedric Hurtado has several semi or private rooms available for female or male residents. We have just opened our short term wing again, they are all private rooms. We take Medicare, Medicaid, Medicaid pending, Aetna, and [facility]. [facility] Declined Facility cannot provide for patient's needs N/A [address] [facility] [phone] -- [facility] Declined No contract with patient's insurance carrier N/A [address] [facility] [address] -- [facility] Declined Facility cannot provide for patient's needs N/A [address] [facility] [address] [phone] -- [facility] Declined Facility cannot provide for patient's needs, History of violence and/or drug/alcohol abuse, Cannot meet patient's psychosocial needs N/A [address] [facility] [address] [phone] -- Internal Comment last updated by Arnie Chand 09/05/2021 1055 09/05/2021 SW contacted facility to request referral status; Lamar (Admission) denied Pt due to psych services/poly substance and facility is primary geriatric. Arnie Chand 09/05/2021 10:55 AM [facility] Declined Facility cannot provide for patient's needs N/A [address] [facility] [phone] -- [facility] Declined No contract with patient's insurance carrier N/A [address] [facility] [phone] -- [facility] Declined Facility cannot provide for patient's needs N/A [address] [place] [address] [phone] -- Transportation (if ambulance rationale): Transportation at discharge: (jennifer determined by disposition) Anticipated Discharge Date: Anticipated Discharge Date: 09/08/21 PIPER Dumont MBA Sign Out Clerk [phone] 09/06/2021 8:51 AM * Sonia Arevalo MD [...] parietal occipital area and was transferred to [facility] for further management. On [facility] arrival NIHSS was 20 and CTH showed [...] --- GI consulted, follow up with outpatient scheduling representative ?? #Urinary Retention - Delirium and stroke [...] 09/06/21. Valdo Arevalo MD * Francoise Omer APRN-ENVIRONMENTAL GEOLOGIST - 09/06/2021 7:08 AM CDT [facility] Psychiatry Consult Progress Note Chester Dubose Jr. [...] of substance abuse??including??alcohol, meth and marijuana. Per [facility] notes, past??suicide attempts plan to cut his [...] sisters as she has bed room on [facility] and she said he can stay there. [...] seroquel 100 mg BID Cont Haldol 5mg [id number] PRN PO or IM for severe non [...] melatonin at 5-6 pm - avoidance of electric sealing machine operator lab draws - minimize physical restraints, tubes [...] regular bowel movements ?? Stimulant use disorder- reinforcing steel worker wire mesh to provide substance abuse treatment resources if/when appropriate ?? 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 Hemmorrhagic Stroke L parietal-occipital??due [...] Angelita Gaitan - 09/06/2021 7:04 AM CDT [facility] Psychiatry Consult Progress Note Chester Dubose Jr. [...] Scheduled Seroquel 100 mg BID Haldol 5mg [id number] PRN On interview, the patient was laying [...] Seroquel 100 BID Continue Haldol 5 mg [id number] PRN Perform regular EKGS to monitor QTc [...] Donaldson OT - 09/05/2021 1:12 PM CDT [facility] Physical Medicine and Rehabilitation Occupational Therapy Initial Evaluation Note Patient: Chester Dubose Jr. Med Record Number: [id number] Date of : 1970 Age: [age] year [...] duct obstruction, acquired Methamphetamine intoxication Intracerebral bleed Arrowsmith coma scale total score 4 or 5 [...] functional goals. and Equipment Issued: none Modified Ponderay Score: Current Modified Ponderay Score: 4 Nurse and PT contacted regarding [...] perform bed to chair With min assist Lacquer Sizer Goal: Patient to discharge to appropriate next [...] Note Anticipated level of care at discharge: Intermediate - Skilled Facility Discharge Plan: Patient is [...] Medications: Transportation: Name: Evelyn Morrissey RN Phone: [phone] * Valdo Arevalo MD - 09/05/2021 8:34 [...] disorder POA: Yes Methamphetamine intoxication POA: Yes Arrowsmith coma scale total score 4 or 5 [...] LDL, LDLCALC, LDLDIRECT, CHOLHDL in the last 01310 hours. Recent Labs Component Name 08/26/21 0032 [...] Component Value - Date/Time CULTURE SPUTUM+GRAM STAIN [[id number]] (Abnormal) (Susceptibility) Collected: 08/27/211704 Lab Status: Final [...] Susceptible <=0.5 ug/mL MANJIT Final CULTURE BLOOD [[id number]] (Normal) Collected: 08/27/211704 Lab Status: Final result Specimen: Blood Peripheral Updated: 09/01/21 2100 Culture No growth day 5 CULTURE BLOOD [[id number]] (Normal) Collected: 08/27/211704 Lab Status: Final result [...] Services Address Phone Fax Patient Preferred [facility] Pending - Request Sent N/A [address] [facility] [address] -- Current Capacity last updated by Katia Gonzalez on 02/01/2021 1242 BEDS AVAILABLE!! Let me know if you need anything :) Katia [phone] [facility] Pending - Request Sent N/A [address] [facility] [address] -- [facility] Pending - Request Sent N/A [address] [facility] [address] -- [facility] Pending - Request Sent N/A [address] [facility] [address] -- [facility] Pending - Request Sent N/A [address] [facility] [address] -- Current Capacity last updated by Marissa Rivera on 08/31/2021 1001 We currently have (2) Short-Stay Rehabilitation Beds Available. , , We will accept 10-day Post-COVID. , C, Essence, AETNA, Medicare and Active-Medicaid. , , Please call Marissa with any questions or for additional information. [facility] Pending - Request Sent N/A [address] [facility] [address] -- [facility] Pending - Request Sent N/A [address] [facility] [address] -- Internal Comment last updated by Bibi Hill, RN 09/01/2021 0938 admit coordinator, reports no male beds currently but will let us know if one opens up [facility] Pending - Request Sent N/A [address] [facility] [place] [phone] -- [facility] Pending - Request Sent N/A [address] [facility] [address] [phone] -- [facility] Pending - Request Sent N/A [address] [place] [phone] -- [facility] Pending - Request Sent N/A [address] [facility] [address] [phone] -- Internal Comment last updated by Arnie Chand 09/05/2021 9401 09/05/2021 SW called Admissions to f/u on referral update; Flor Goldman([phone]) was unable to locate the referral during the call and will call SW back when it's located. Arnie Chand 09/05/2021 10:36 AM [facility] Pending - Request Sent N/A [address] [facility] [address] [phone] -- [facility] Pending - Request Sent N/A [address] [facility] [address] -- [facility] Pending - Request Sent N/A [address] [facility] [address] -- Internal Comment last updated by Arnie Chand 09/05/2021 1102 09/05/2021 SANTINO spoke with Tresa (Admissions) who indicated she did not receive referral. If Pt is possible long-term, facility will convert his primary insurance. SANTINO faxed referral to [phone] and confirmed Pt is vaccinated. Tresa will f/u with SW after referral is reviewed. Arnie Chand 09/05/2021 11:01 AM [facility] Pending - Request Sent N/A [address] [facility] [address] [phone] -- [facility] Pending - Request Sent N/A [address] [place] [address] [phone] -- [facility] Pending - Request Sent N/A [address] [address] [facility] [address] [phone] -- [facility] Pending - Request Sent N/A [address] [place] [address] [phone] -- Internal Comment last updated by Arnie Chand 09/05/2021 1041 09/05/2021 SW contacted facility to request referral status; SW left message for Admissions. Arnie Chand 09/05/2021 10:39 AM [facility] Pending - Request Sent N/A [address] [place] [address] [phone] -- Internal Comment last updated by Arnie Chand 09/05/2021 1043 09/05/2021 SW contacted facility to request update on referral submitted; VM left. Arnie Chand 09/05/2021 10:42 AM [facility] Pending - Request Sent N/A [address] [address] [phone] -- Internal Comment last updated by Bibi Hill, RN 09/02/2021 1313 Left message 09/02 for admissions [facility]URTADO Declined History of violence and/or drug/alcohol abuse N/A [address] [facility] [address] -- Current Capacity last updated by Ching Reyna on 05/13/2021 1316 Cedric [place] has several semi or private rooms available for female or male residents. We have just opened our short term wing again, they are all private rooms. We take Medicare, Medicaid, Medicaid pending, Aetna, and [facility]. [facility] Declined Facility cannot provide for patient's needs N/A [address] [facility] [address] -- [facility] Declined No contract with patient's insurance carrier N/A [address] [facility] [address] -- [facility] Declined Facility cannot provide for patient's needs N/A [address] [facility] [address] [phone] -- [facility] Declined Facility cannot provide for patient's needs, History of violence and/or drug/alcohol abuse, Cannot meet patient's psychosocial needs N/A [address] [facility] [address] [phone] -- Internal Comment last updated by Arnie Chand 09/05/2021 1055 09/05/2021 SW contacted facility to request referral status; Lamar (Admission) denied Pt due to psych services/poly substance and facility is primary geriatric. Arnie Chand 09/05/2021 10:55 AM [facility] Declined Facility cannot provide for patient's needs N/A [address] [facility] [phone] -- [facility] Declined No contract with patient's insurance carrier N/A [address] [facility] [phone] -- [facility] Declined Facility cannot provide for patient's needs N/A [address] [place] [address] [phone] -- Transportation (if ambulance rationale): Transportation at discharge: (jennifer determined by disposition) Anticipated Discharge Date: Anticipated Discharge Date: 09/06/21 PIPER Dumont MBA Sign Out Clerk [phone] 09/05/2021 8:22 AM * Sonia Arevalo MD [...] parietal occipital area and was transferred to [facility] for further management. On [facility] arrival NIHSS was 20 and CTH showed [...] --- GI consulted, follow up with outpatient scheduling representative ?? #Urinary Retention - Delirium and stroke [...] Doshi-Angelita Sepulveda - 09/05/2021 7:26 AM CDT [facility] Psychiatry Consult Progress Note Chester Dubose Jr. [...] and plan. MARK Casillas * Francoise Omer, CHRISTIANO-ENVIRONMENTAL GEOLOGIST - 09/05/2021 7:23 AM CDT [facility] Psychiatry Consult Progress Note Chester Dubose Jr. [...] of substance abuse??including??alcohol, meth and marijuana. Per [facility] notes, past??suicide attempts plan to cut his [...] ??C) (!) 119 21 146/83 EKG QTc 09/0131=[id number] pending Allergy: No Known Allergies Assessment Mr [...] be determined, will most likely need neuro rehab-bilingual social worker to assist DSM-5 Diagnosis: Delirium due to another medical condition F05 Stimulant use disorder, Methamphetamine type -severe F15.20 Plan: Psychiatric problems: Delirium/agitation Cont seroquel 100 mg BID Cont Haldol 5mg [id number] PRN PO or IM for severe non [...] melatonin at 5-6 pm - avoidance of electric sealing machine operator lab draws - minimize physical restraints, tubes [...] ensure regular bowel movements Stimulant use disorder- reinforcing steel worker wire mesh to provide substance abuse treatment resources if/when [...] from the original note were not included. [facility] STROKE NEUROLOGY PROGRESS NOTE Patient: Chester Dubose [...] parietal occipital area and was transferred to [facility] for further management. On [facility] arrival NIHSS was 20 and CTH showed [...] Component Value - Date/Time CULTURE SPUTUM+GRAM STAIN [[id number]] (Abnormal) (Susceptibility) Collected: 08/27/211704 Lab Status: Final [...] Susceptible <=0.5 ug/mL MANJIT Final CULTURE BLOOD [[id number]] (Normal) Collected: 08/27/211704 Lab Status: Final result Specimen: Blood Peripheral Updated: 09/01/212099 Culture No growth day 5 CULTURE BLOOD [[id number]] (Normal) Collected: 08/27/21 1705 Lab Status: Final result Specimen: Blood Peripheral Updated: 09/01/21 2100 Culture No growth day 5 Imaging & Studies: No results found. ASSESSMENT & PLAN Chester Dbuose Jr.??is a 51 year old??male??presenting for management [...] --- GI consulted, follow up with outpatient scheduling representative #Urinary Retention - Delirium and stroke likely [...] Noland OT - 09/04/2021 9:00 AM CDT [facility] Department of Physical Medicine & Rehabilitation Progress Note Patient: Chester Dubose Jr. Med Record Number: [id number] Date of : 1970 Age: [age] year old 09/04/21 1100 Missed Visit Missed Visit RN Cancel Per RN, patient agitated and suicidal. Will re-attempt at a later date as appropriate and as schedule allows. * Luiz Jaimes - 09/04/2021 8:55 AM CDT Referral Color Tester responded to the Ph. Referral from attending RN, that patient is anxious and could use a visit from PC. Chester is sitting in a couch in his room, covered with comforter. He is talking in a low voice, veryhard to hear what he says. Color Tester engaged Chester, who shared that he is not confucianism, but did notmind a visit. He shared about his hard life and mentioned that he has only two beings that he caredfor - his sister and his dog, but his dog . Color Tester provided emotional support through pastoral presence and active listening. Reminded to the patient that he can always call upon a obgyn nurse for a visit. Follow up as needed. [...] Denson MD - 09/04/2021 8:39 AM CDT [facility] Psychiatry Consult Progress Note Chester Dubose Jr. [...] abuse including alcohol, meth and marijuana. Per [facility] notes, past suicide attempts plan to cut [...] QTC Calculation (Bezet) 493 ms Calculated P [place] -4 degrees Calculated R [place] 126 degrees Calculated T [place] 127 degrees Interpretation EKG SUSPECT LIMB LEAD REVERSAL SINUS RHYTHM WITH SHORT [place] MINIMAL VOLTAGE CRITERIA FOR LVH, MAY BE NORMAL VARIANT ( Sokolow-Calderon ) PROLONGED QT ABNORMAL ECG WHEN COMPARED WITH ECG OF 15-OCT-2018 08:33, SUSPECT LIMB LEADS ARE NOW REVERSED Confirmed by Rod Friedman ([id number]) on 08/27/2021 5:28:48 PM EKG 12-LEAD Result Value Ref Range Ventricular Rate 72 BPM Atrial Rate 72 BPM P-R Interval 150 ms QRS Duration ms 84 ms Q-T Interval ms 376 ms QTC Calculation (Bezet) 411 ms Calculated P [place] 49 degrees Calculated R Patoka 57 degrees Calculated T Patoka 49 degrees Interpretation EKG NORMAL SINUS RHYTHM [...] QTC Calculation (Bezet) 416 ms Calculated P Pat[place] 56 degrees Calculated R [place] 68 degrees Calculated T [place] 66 degrees Interpretation EKG NORMAL SINUS RHYTHM NORMAL ECG WHEN COMPARED WITH ECG OF 27-AUG-2021 13:24, NO SIGNIFICANT CHANGE WAS FOUND Confirmed by Rod Friedman ([id number]) on 09/02/2021 3:21:17 PM EKG 12-LEAD Result Value Ref Range Ventricular Rate 67 BPM Atrial Rate 67 BPM P-R Interval 150 ms QRS Duration ms 88 ms Q-T Interval ms 456 ms QTC Calculation (Bezet) 481 ms Calculated P [place] 52 degrees Calculated R [place] 41 degrees Calculated T [place] 49 degrees Interpretation EKG NORMAL SINUS RHYTHM [...] melatonin at 5-6 pm - avoidance of electric sealing machine operator lab draws - minimize physical restraints, tubes [...] responded well to Haldol, Continue Haldol 5mg [id number] PRN PO or IM but has a [...] disorder POA: Yes Methamphetamine intoxication POA: Yes Arrowsmith coma scale total score 4 or 5 [...] LDL, LDLCALC, LDLDIRECT, CHOLHDL in the last 54839 hours. Recent Labs Component Name 08/26/21 0032 [...] Component Value - Date/Time CULTURE SPUTUM+GRAM STAIN [[id number]] (Abnormal) (Susceptibility) Collected: 08/27/21 170 Lab Status: [...] Susceptible <=0.5 ug/mL MANJIT Final CULTURE BLOOD [[id number]] (Normal) Collected: 08/27/211704 Lab Status: Final result Specimen: Blood Peripheral Updated: 09/01/21 2100 Culture No growth day 5 CULTURE BLOOD [[id number]] (Normal) Collected: 08/27/211704 Lab Status: Final result Specimen: Blood Peripheral Updated: 09/01/21 2100 Culture No growth day 5 Valdo Arevalo MD 8:29 AM * Sidra Fonseca - 09/04/2021 4:54 AM CDT Code Green This obgyn nurse received an [employer] message for a Code Green on this Pt. This obgyn nurse responded to theunit at her earliest opportunity. Pt was in room. Pt's RN, protective services and the warehouse consultant were outside in the lo to allow Pt some time and space to calm himself. Pt's doctor came to speak with Pt. This obgyn nurse was called elsewhere, but advised Pt's RN and unit charge nurse that pastoral care was available and if they needed a obgyn nurse later to give pastoral care a call. Pastoral care is available 08/01. Please call [phone] if requested or needed. 501/ * Steven [...] Callejas, PT - 09/03/2021 2:19 PM CDT [facility] Physical Medicine and Rehabilitation Physical Therapy Initial Evaluation Note Patient: Chester Dubose Jr. Med Record Number: [id number] Date of : 1970 Age: [age] year [...] duct obstruction, acquired Methamphetamine intoxication Intracerebral bleed Arrowsmith coma scale total score 4 or 5 [...] name and ; says he lives in [place], [place]; unable to state month/year or hospital. [...] date- current activity orders up to chair) Lacquer Sizer Goal(s): Patient to discharge to appropriate next [...] from the original note were not included. [facility] STROKE NEUROLOGY PROGRESS NOTE Patient: Chester Dubose [...] parietal occipital area and was transferred to [facility] for further management. On [facility] arrival NIHSS was 20 and CTH showed [...] Component Value - Date/Time CULTURE SPUTUM+GRAM STAIN [[id number]] (Abnormal) (Susceptibility) Collected: 08/27/211704 Lab Status: Final result Specimen: Microbiology from Sputum Updated: 08/30/21137 Culture Heavy Staphylococcus aureus methicillin-resistant (MRSA) Comment: Staphylococcus aureus methicillin-resistant (MRSA) detected by penicillin binding protein immunoassay. Contact precautions required. Conventional antibiotic susceptibility testing to follow. Light normal oropharyngeal izabelal Gram Stain Heavy Gram-positive cocci >= 25 [...] Susceptible <=0.5 ug/mL MANJIT Final CULTURE BLOOD [[id number]] (Normal) Collected: 08/27/211704 Lab Status: Final result Specimen: Blood Peripheral Updated: 09/01/21 2100 Culture No growth day 5 CULTURE BLOOD [[id number]] (Normal) Collected: 08/27/211704 Lab Status: Final result [...] --- GI consulted, follow up with outpatient scheduling representative #Urinary Retention - Delirium and stroke likely [...] disorder POA: Yes Methamphetamine intoxication POA: Yes Arrowsmith coma scale total score 4 or 5 [...] LDL, LDLCALC, LDLDIRECT, CHOLHDL in the last 49042 hours. Recent Labs Component Name 08/26/21 003 [...] Component Value - Date/Time CULTURE SPUTUM+GRAM STAIN [[id number]] (Abnormal) (Susceptibility) Collected: 08/27/211704 Lab Status: Final [...] Susceptible <=0.5 ug/mL MANJIT Final CULTURE BLOOD [[id number]] (Normal) Collected: 08/27/211704 Lab Status: Final result Specimen: Blood Peripheral Updated: 09/01/21 2100 Culture No growth day 5 CULTURE BLOOD [[id number]] (Normal) Collected: 08/27/21 1705 Lab Status: Final [...] Note Anticipated level of care at discharge: Intermediate - Skilled Facility Discharge Plan: CM & SW continue to look for placement for Chester Name: Bibi Hill RN Phone: [phone] * Olegario Villagomez MD - 09/02/2021 10:38 AM CDT NEUROCRITICAL CARE ATTENDING NOTE 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 He was treated with TPA at [facility]. Due to the left hemispheric injury he [...] Gomez, JENNIE - 09/02/2021 10:01 AM CDT [facility] Swallow Treatment Patient: Chester Dubose Jr. Med Record Number: [id number] Date of : 1970 Age: [age] year [...] to place/time/situation. Receptive to orientation information from TOBACCO DRYING MACHINE OPERATOR. Able to state birthday and partial address. [...] aspiration or difficulty swallowing with recommended diet. Group Home Goal(s): Patient to be independent/baseline with speech/language/cognitive/swallowing to be able to safely discharge to prior level of care. If patient is discharged from the facility, this note serves as a discharge note if further speech therapy visits did not occur. Javier Wilhelm M.A., [facility]-TOBACCO DRYING MACHINE OPERATOR Speech Language Pathologist [phone] * Gudelia Jin [...] Selected Services Address Phone Fax Patient Preferred [facility] Pending - Request Sent N/A [address] [facility] [address] -- Current Capacity last updated by Katia Gonzalez on 02/01/2021 1242 BEDS AVAILABLE!! Let me know if you need anything :Katia Lamb [phone] [facility] Pending - Request Sent N/A [address] [facility] [phone] -- [facility] Pending - Request Sent N/A [address] [facility] [phone] -- [facility] Pending - Request Sent N/A [address] [facility] [phone] -- [facility] Pending - Request Sent N/A [address] [facility] [phone] -- Current Capacity last updated by Marissa Rivera on 08/31/2021 1001 We currently have (2) Short-Stay Rehabilitation Beds Available. , , We will accept 10-day Post-COVID. , UHC, Essence, AETNA, Medicare and Active-Medicaid. , , Please call Marissa with any questions or for additional information. [facility] Pending - Request Sent N/A [address] [facility] [address] -- [facility] Pending - Request Sent N/A [address] [facility] [address] -- Internal Comment last updated by Bibi Hill, RN 09/01/2021 0938 admit coordinator, reports no male beds currently but will let us know if one opens up [facility] Pending - Request Sent N/A [address] [facility] [place] [facility] [address] -- [facility] Pending - Request Sent N/A [address] [facility] [address] [phone] -- [facility] Pending - Request Sent N/A [address] [place] [phone] -- [facility] Pending - Request Sent N/A [address] [facility] [address] [phone] -- [facility] Pending - Request Sent N/A [address] [facility] [address] [phone] -- [facility] Pending - Request Sent N/A [address] [facility] [address] -- [facility] Pending - Request Sent N/A [address] [facility] [address] [phone] -- [facility] Pending - Request Sent N/A [address] [facility] [phone] -- [facility] Pending - Request Sent N/A [address] [address] [facility] [address] [phone] -- [facility] Pending - Request Sent N/A [address] [facility] [address] [phone] -- [facility] Pending - Request Sent N/A [address] [facility] [facility] [phone] -- [facility] Pending - Request Sent N/A [address] [place] [address] [phone] -- [facility] Pending - Request Sent N/A [address] [facility] [address] [phone] -- [facility] Pending - Request Sent N/A [address] [address] [phone] -- Internal Comment last updated by Bibi Hill RN 09/02/2021 1313 Left message 09/02 for admissions [facility] Declined History of violence and/or drug/alcohol abuse N/A [address] [facility] [address] [phone] -- Current Capacity last updated by Ching Reyna on 05/13/2021 1316 Cedric Hurtado has several semi or private rooms available for female or male residents. We have just opened our short term wing again, they are all private rooms. We take Medicare, Medicaid, Medicaid pending, Aetna, and [facility]. [facility] Declined Facility cannot provide for patient's needs N/A [address] [facility] [phone] -- [facility] Declined No contract with patient's insurance carrier N/A [address] [facility] [phone] -- [facility] Declined Facility cannot provide for patient's needs N/A [address] [facility] [address] [phone] -- [facility] Declined Facility cannot provide for patient's needs N/A [address] [facility] [phone] -- [facility] Declined No contract with patient's insurance carrier N/A [address] [facility] [address] [phone] -- [facility] Declined Facility cannot provide for patient's needs N/A [address] [place] [address] -- If Medicare-3 day qualifying stay verified: Yes monitoring facility responses Transportation (if ambulance rationale): Transportation at discharge: (jennifer determined by disposition) Anticipated Discharge Date: Anticipated Discharge Date: 09/06/21 PIPER Dumont MBA Sign Out Clerk [phone] 09/02/2021 2:54 PM * Clarissa Sloan MD - 09/02/2021 7:24 AM CDT [facility] Psychiatry Consult Progress Note Chester Dubose Jr. [...] abuse including alcohol, meth and marijuana. Per [facility] notes, past suicide attempts plan to cut [...] QTC Calculation (Bezet) 493 ms Calculated P Patoka -4 degrees Calculated R Patoka 126 degrees Calculated T Patoka 127 degrees Interpretation EKG SUSPECT LIMB LEAD REVERSAL SINUS RHYTHM WITH SHORT [place] MINIMAL VOLTAGE CRITERIA FOR LVH, MAY BE NORMAL VARIANT ( Sokolow-Calderon ) PROLONGED QT ABNORMAL ECG WHEN COMPARED WITH ECG OF 15-OCT-2018 08:33, SUSPECT LIMB LEADS ARE NOW REVERSED Confirmed by Rod Friedman ([id number]) on 08/27/2021 5:28:48 PM EKG 12-LEAD Result Value Ref Range Ventricular Rate 72 BPM Atrial Rate 72 BPM P-R Interval 150 ms QRS Duration ms 84 ms Q-T Interval ms 376 ms QTC Calculation (Bezet) 411 ms Calculated P [place] 49 degrees Calculated R [place] 57 degrees Calculated T [place] 49 degrees Interpretation EKG NORMAL SINUS RHYTHM [...] QTC Calculation (Bezet) 416 ms Calculated P [place] 56 degrees Calculated R [place] 68 degrees Calculated T [place] 66 degrees Interpretation EKG NORMAL SINUS RHYTHM NORMAL ECG WHEN COMPARED WITH ECG OF 27-AUG-2021 13:24, NO SIGNIFICANT CHANGE WAS FOUND EKG 12-LEAD Result Value Ref Range Ventricular Rate 67 BPM Atrial Rate 67 BPM P-R Interval 150 ms QRS Duration ms 88 ms Q-T Interval ms 456 ms QTC Calculation (Bezet) 481 ms Calculated P [place] 52 degrees Calculated R [place] 41 degrees Calculated T [place] 49 degrees Interpretation EKG NORMAL SINUS RHYTHM [...] melatonin at 5-6 pm - avoidance of electric sealing machine operator lab draws - minimize physical restraints, tubes [...] Department of Psychiatry and Behavioral Neuroscience Pager [phone] 09/02/21 7:24 AM Associated attestation - Elizabeth [...] parietal occipital area and was transferred to [facility] for further management. On [facility] arrival NIHSS was 20 and CTH showed [...] --- GI consulted, follow up with outpatient scheduling representative ?? Regular diet ?? GI ppx: pepcid [...] Gomez SLP - 09/01/2021 2:30 PM CDT [facility] Bedside Swallow Evaluation Patient: Chester Dubose Jr. Med Record Number: [id number] Date of : 1970 Age: [age] year [...] demonstrate understanding of swallow guidelines and strategies. Group Home Goal (s): Patient to be independent/baseline with functional mobility and self care and be able to safely discharge to prior level of care. If patient is discharged from this facility, this note serves as a discharge note if further speechtherapy visits did not occur. Javier Wilhelm M.A., [facility]-TOBACCO DRYING MACHINE OPERATOR Speech Language Pathologist [phone] * Mariola Oviedo MD - 09/01/2021 1:51 PM CDT Family Notification Documentation Contact made: 09/01/2021 1:51 PM Person(s) contacted: Sister (Benson) Method of communication: Phone Summary of discussion Updated current plan of care and clinical status. Answered all questions * Javier Gomez SLP - 09/01/2021 10:51 AM CDT [facility] Department of Physical Medicine & Rehabilitation Progress Note Patient: Chester Dubose Jr. Med Record Number: [id number] Date of : 1970 Age: [age] year old Attempted to see pt for swallow evaluation. Pt lethargic, inconsistent responses to TOBACCO DRYING MACHINE OPERATOR. Unable to follow 1-step commands to participate in evaluation, no response to tactile stimuli (ice chips). Pt is not appropriate for evaluation at this time d/t alertness impacting ability to participate. TOBACCO DRYING MACHINE OPERATOR following and will assess swallow when appropriate. Javier Wilhelm M.A., [facility]-TOBACCO DRYING MACHINE OPERATOR Speech Language Pathologist [phone] * Bibi Dodson [...] mg Skin/Wound: WDL Estimated Energy Needs: KCAL: 9287-0382 (25-30kcal/kg of ABW) Protein (g): 73-87 (1-1.2g/kg [...] Selected Services Address Phone Fax Patient Preferred [facility] Pending - Request Sent N/A [address] [facility] [phone] -- Current Capacity last updated by Katia Gonzalez on 02/01/2021 1242 BEDS AVAILABLE!! Let me know if you need anything :Katia Lamb [phone] [facility] Pending - Request Sent N/A [address] [facility] [phone] -- [facility] Pending - Request Sent N/A [address] [facility] [phone] -- [facility] Pending - Request Sent N/A [address] [facility] [address] [phone] -- [facility] Pending - Request Sent N/A [address] [facility] [facility] [phone] -- Current Capacity last updated by Marissa Rivera on 08/31/2021 1001 We currently have (2) Short-Stay Rehabilitation Beds Available. , , We will accept 10-day Post-COVID. , UHC, Essence, AETNA, Medicare and Active-Medicaid. , , Please call Marissa with any questions or for additional information. [facility] Pending - Request Sent N/A [address] [facility] [address] -- [facility] Pending - Request Sent N/A [address] [facility] [address] -- Internal Comment last updated by Bibi Hill, RN 09/01/2021 0938 admit coordinator, reports no male beds currently but will let us know if one opens up [facility] Pending - Request Sent N/A [address] [facility] [place] [address] -- [facility] Pending - Request Sent N/A [address] [facility] [address] [phone] -- [facility] Pending - Request Sent N/A [address] [place] [phone] -- [facility] Pending - Request Sent N/A [address] [place] [address] [phone] -- [facility] Pending - Request Sent N/A [address] [facility] [address] [phone] -- [facility] Pending - Request Sent N/A [address] [facility] [address] [phone] -- [facility] Pending - Request Sent N/A [address] [facility] [address] [phone] -- [facility] Pending - Request Sent N/A [address] [facility] [phone] -- [facility] Pending - Request Sent N/A [address] [facility] [phone] -- [facility] Pending - Request Sent N/A [address] [address] [address] [facility] [address] [phone] -- [facility] Pending - Request Sent N/A [address] [facility] [address] [phone] -- [facility] Pending - Request Sent N/A [address] [facility] [address] [phone] -- [facility] Pending - Request Sent N/A [address] [place] [address] [phone] -- [facility] Pending - Request Sent N/A [address] [place] [address] [phone] -- [facility] Pending - Request Sent N/A [address] [facility] [address] [phone] -- [facility] Declined History of violence and/or drug/alcohol abuse N/A [address] [facility] [address] -- Current Capacity last updated by Ching Reyna on 05/13/2021 Gigi Hurtado has several semi or private rooms available for female or male residents. We have just opened our short term wing again, they are all private rooms. We take Medicare, Medicaid, Medicaid pending, t, and [facility]. [facility] Declined Facility cannot provide for patient's needs N/A [address] [facility] [phone] -- [facility] Declined No contract with patient's insurance carrier N/A [address] [facility] [phone] -- [facility] Declined Facility cannot provide for patient's needs N/A [address] [facility] [address] [phone] -- Transportation (if ambulance rationale): Transportation at discharge: (jennifer determined by disposition) Anticipated Discharge Date: Anticipated Discharge Date: 09/04/21 PIPER Dumont MBA Sign Out Clerk [phone] 09/01/2021 8:14 AM * Clarissa Sloan MD - 09/01/2021 7:27 AM CDT [facility] Psychiatry Consult Progress Note Chester Dubose Jr. [...] abuse including alcohol, meth and marijuana. Per [facility] notes, past suicide attempts plan to cut [...] He was able to look at this advertising copy writer on talking to him. He endorses being in the hospital because of a fuck up . Then started talking very pressured saying 1941, 1951,1961 , later kept saying, take me home, I want to go home . He was unable to state his location, endorsing this was a shop in [facility] , and stated the year as [...] QTC Calculation (Bezet) 493 ms Calculated P Patoka -4 degrees Calculated R [place] 126 degrees Calculated T [place]oka 127 degrees Interpretation EKG SUSPECT LIMB LEAD REVERSAL SINUS RHYTHM WITH SHORT [place] MINIMAL VOLTAGE CRITERIA FOR LVH, MAY BE NORMAL VARIANT ( Sokolow-Calderon ) PROLONGED QT ABNORMAL ECG WHEN COMPARED WITH ECG OF 15-OCT-2018 08:33, SUSPECT LIMB LEADS ARE NOW REVERSED Confirmed by Rod Friedman ([id number]) on 08/27/2021 5:28:48 PM EKG 12-LEAD Result Value Ref Range Ventricular Rate 72 BPM Atrial Rate 72 BPM P-R Interval 150 ms QRS Duration ms 84 ms Q-T Interval ms 376 ms QTC Calculation (Bezet) 411 ms Calculated P [place] 49 degrees Calculated R [place] 57 degrees Calculated T [place] 49 degrees Interpretation EKG NORMAL SINUS RHYTHM [...] QTC Calculation (Bezet) 416 ms Calculated P [place] 56 degrees Calculated R [place] 68 degrees Calculated T [place] 66 degrees Interpretation EKG NORMAL SINUS RHYTHM [...] melatonin at 5-6 pm - avoidance of electric sealing machine operator lab draws - minimize physical restraints, tubes [...] Department of Psychiatry and Behavioral Neuroscience Pager [phone] 09/01/21 7:28 AM Associated attestation - Elizabeth [...] parietal occipital area and was transferred to [facility] for further management. On [facility] arrival NIHSS was 20 and CTH showed [...] --- GI consulted, follow up with outpatient scheduling representative ?? #Dysphagia - NGT in place - [...] cocaine, marijuana), EtOH cirrhosis who presented to [facility] on 08/24 for suicide attempt. [...] Component Value - Date/Time CULTURE SPUTUM+GRAM STAIN [[id number]] (Abnormal) (Susceptibility) Collected: 08/27/21 1705 Lab Status: [...] Susceptible <=0.5 ug/mL MANJIT Final CULTURE BLOOD [[id number]] (Normal) Collected: 08/27/21 170 Lab Status: Preliminary result Specimen: Blood Peripheral Updated: 08/29/21 2100 Culture No growth CULTURE BLOOD [[id number]] (Normal) Collected: 08/27/21 170 Lab Status: Preliminary [...] of Pulmonary, Critical Care, & Sleep Medicine [facility] Associated attestation - Ashutosh Morejon MD - [...] Intracranial hemorrhage MRSA pneumonia Ashutosh Morejon MD Clinical Training Coordinator of Pulmonary & Critical Care Medicine [facility] Pager [phone] * Mariola Oviedo MD - 08/31/2021 1:30 [...] Contact Information Primary Emergency Contact: Henok Stahl [facility] Mobile Relation: Friend Secondary Emergency Contact: Benson Dubose [facility] Mobile Relation: Sister Mother: tracee dubose Mobile Have they been contacted? PIPER Dumont MBA Sign Out Clerk [phone] 08/31/2021 11:14 AM * Bibi Hill RN - 08/31/2021 9:21 AM CDT Case Management Progress Note Anticipated level of care at discharge: Intermediate - Skilled Facility Discharge Plan: anticipate placement will be needed. Referrals sent. SW following also. Spoke to Benson & Tracee at bedside. They are open to SNFs and understand that we may not find one super close to home. Name: Bibi Hill RN Phone: [phone] * Angelita Gaitan - 08/31/2021 7:38 AM CDT [facility] Psychiatry Consult Progress Note Chester Dubose Jr. [...] the past. In he was hospitalized at [facility] [place] in [place] for alcoholism. Mother states that he has been at [facility] for his addictions (no specific details). According to mom, Chester was seeing psychiatrist, at [facility] in 2011 and was put on disability [...] parietal occipital area and was transferred to [facility] for further management. On [facility] arrival NIHSS was 20 and CTH showed [...] --- GI consulted, follow up with outpatient scheduling representative ?? #Dysphagia - NGT in place - [...] disorder POA: Yes Methamphetamine intoxication POA: Yes Arrowsmith coma scale total score 4 or 5 [...] delirium. Olegario Villagomez MD * Francoise Omer, RADIOLOGY INTERVENTIONAL PHYSICIAN-ENVIRONMENTAL GEOLOGIST - 08/31/2021 7:09 AM CDT [facility] Psychiatry Consult Progress Note Chester Dubose Jr. [...] : Prior hospitalization for alcohol use [place], [place] addicitions could not elaborate. Saw psychiatrist 2012- [...] 08/31/2021. The case was discussed with the SANDWICH MAKER/PA, and I have reviewed their note below. [...] desired activity. Outcome: Progressing * Francoise Omer APRN-ENVIRONMENTAL GEOLOGIST - 08/30/2021 3:54 PM CDT RADIOLOGY INTERVENTIONAL PHYSICIAN Psychiatry: Plan of care Full note to [...] IVPB Skin/Wound: WDL Estimated Energy Needs: KCAL: [id number] (20-25kcal/kg of ABW) Protein (g): 86-143 (1.2-2g/kg [...] Anticipated Discharge Date: 09/04/21 PIPER Dumont MBA Sign Out Clerk [phone] 08/30/2021 7:38 AM * Marcio Jones - [...] also given mannitol. Pt was transferred to [facility], reports have state he would extend his [...] Verfied that pt's pharmacy was at the [facility] in [place], [place]. Mentioned that patient was suppose to have an appoint with his doctor to assess pt's liver via ultrasound. ?? Called [facility] pharmacy which confirmed that patient currently takes [...] cirrhosis -consulted GI, suggest f/u with outpt scheduling representative? Hematology Hbg 12.4 Plt 88 PTT 18.8 [...] cocaine, marijuana), EtOH cirrhosis who presented to [facility] on 08/24 for suicide attempt. [...] Component Value - Date/Time CULTURE SPUTUM+GRAM STAIN [[id number]] (Abnormal) (Susceptibility) Collected: 08/27/21 170 Lab Status: [...] Susceptible <=0.5 ug/mL MANJIT Final CULTURE BLOOD [[id number]] (Normal) Collected: 08/27/211704 Lab Status: Preliminary result Specimen: Blood Peripheral Updated: 08/29/21 2100 Culture No growth CULTURE BLOOD [[id number]] (Normal) Collected: 08/27/211704 Lab Status: Preliminary result [...] of Pulmonary, Critical Care, & Sleep Medicine [facility] Associated attestation - Ashutosh Morejon MD - [...] Intracranial hemorrhage MRSA pneumonia Ashutosh Morejon MD Clinical Training Coordinator of Pulmonary & Critical Care Medicine [facility] Pager [phone] * Steve Sánchez, RN - 08/30/2021 6:55 [...] 08/24/2021 Hospital Day: 6 Subjective Hospital Course: Chester Dubose Jr. is [...] parietal occipital area and was transferred to [facility] for further management. On [facility] arrival NIHSS was 20 and CTH showed [...] --- GI consulted, follow up with outpatient scheduling representative ?? #Dysphagia - NGT in place - [...] abuse,and alcoholic cirrhosis who was transferred from [facility] on 08/24 for management of IPH. Prior [...] parietal occipital area and was transferred to [facility] for further management. On [facility] arrival NIHSS was 20 and CTH showed [...] --- GI consulted, follow up with outpatient scheduling representative ?? #Dysphagia - NGT in place - [...] disorder POA: Yes Methamphetamine intoxication POA: Yes Arrowsmith coma scale total score 4 or 5 [...] Anticipated Discharge Date: 09/04/21 PIPER Dumont MBA Sign Out Clerk [phone] 08/29/2021 8:47 AM * Katia Anderson RN [...] From 5pm to 7am please refer to [employer]) to reach the resident box order person (changes daily) Secure chat can be used for non-urgent issues only, please expect a reasonable amount of time for responses * Marcio Jones - 08/29/2021 7:16 AM CDT Neuro ICU [...] also given mannitol. Pt was transferred to [facility], reports have state he would extend his [...] Verfied that pt's pharmacy was at the [facility] in [place], [place]. Mentioned that patient was suppose to have an appoint with his doctor to assess pt's liver via ultrasound. ?? Called [facility] pharmacy which confirmed that patient currently takes [...] cirrhosis -consulted GI, suggest f/u with outpt scheduling representative Hematology Hbg 13.2 Plt 75-->76 PTT 18.7 [...] cocaine, marijuana), EtOH cirrhosis who presented to [facility] on 08/24 for suicide attempt. [...] Component Value - Date/Time CULTURE SPUTUM+GRAM STAIN [[id number]] Collected: 08/27/211704 Lab Status: Preliminary result Specimen: Microbiology from Sputum Updated: 08/27/212143 Gram Stain Heavy Gram-positive cocci >= 25 per low power field Polymorphonuclear cells <10 per low power field Squamous epithelial cells CULTURE BLOOD [[id number]] (Normal) Collected: 08/27/211704 Lab Status: Preliminary result Specimen: Blood Peripheral Updated: 08/28/212101 Culture No growth 24 hours CULTURE BLOOD [[id number]] (Normal) Collected: 08/27/211704 Lab Status: Preliminary result [...] of Pulmonary, Critical Care, & Sleep Medicine [facility] Associated attestation - Ashutosh Morejon MD - [...] respiratory failure Intracranial hemorrhage Ashutosh Morejon MD Clinical Training Coordinator of Pulmonary & Critical Care Medicine [facility] Pager [phone] * Melina Burr RN - 08/28/2021 8:21 [...] From 5pm to 7am please refer to [employer]) to reach the resident box order person (changes daily) Secure chat can be used [...] also given mannitol. Pt was transferred to [facility], reports have state he would extend his [...] Verfied that pt's pharmacy was at the [facility] in [place], [place]. Mentioned that patient was suppose to have an appoint with his doctor to assess pt's liver via ultrasound. ?? Called [facility] pharmacy which confirmed that patient currently takes [...] cirrhosis -consulted GI, suggest f/u with outpt scheduling representative Hematology Hbg 14.3 Plt 74-->75 PTT 19.7 [...] cocaine, marijuana), EtOH cirrhosis who presented to [facility] on 08/24 for suicide attempt. [...] Component Value - Date/Time CULTURE SPUTUM+GRAM STAIN [[id number]] Collected: 08/27/211704 Lab Status: Preliminary result Specimen: Microbiology from Sputum Updated: 08/27/212143 Gram Stain Heavy Gram-positive cocci >= 25 per low power field Polymorphonuclear cells <10 per low power field Squamous epithelial cells CULTURE BLOOD [[id number]] Collected: 08/27/211704 Lab Status: In process Specimen: Blood Peripheral Updated: 08/27/211714 CULTURE BLOOD [[id number]] Collected: 08/27/211704 Lab Status: In process Specimen: [...] of Pulmonary, Critical Care, & Sleep Medicine [facility] Associated attestation - [place] MD - [...] to engage in desired activity. Outcome: Progressing DSTITCH HEMMER * Sudhakar Bustos RCP - 08/27/2021 7:02 [...] suctioned as needed to maintain patent airway. DSTITCH HEMMER * Harlan Dunbar MD - 08/27/2021 2:16 PM CST Findings on the US doppler is unchanged from the previous CT, most likely this is a chronic finding. Anticoagulation is contraindicated for the patient given his intraparenchymal bleed. Patient will follow with his scheduling representative at [facility], discussed with family. At this time no need to consult IR for TIPS, will defer to primary scheduling representative. DSTITCH HEMMER * Mariola Oviedo MD - 08/27/2021 12:42 PM CST Family Notification Documentation Contact made: 08/27/2021 12:42 PM Person(s) contacted: Sister (benson) and Mom Method of communication: In-person Duration of discussion: 10 minutes Summary of discussion Updated current plan of care. They asked about discharge with the SI and rehab, and I said we couldwork on it with our case maker. Explained he needs some more time to calm down and then we can extubate, and we will have psychiatry see him once he is extubated. Answered all other questions. DSTITCH HEMMER * Henrietta Field RN - 08/27/2021 12:39 PM CST ongoing DSTITCH HEMMER * Usman Mcdonald MD - 08/27/2021 7:33 [...] From 5pm to 7am please refer to [employer] ([employer]) to reach the resident box order person (changes daily) Secure chat can be used for non-urgent issues only, please expect a reasonable amount of time for responses * Mariola Oviedo MD - 08/27/2021 6:46 AM CST Neuro ICU Daily Progress Note Chester Dubose Jr. Age: [age] year old Date of : 1970 Date of Admission: 08/24/2021 Hospital Day: 3 Subjective Hospital Course: Chester Dubose Jr. is [...] parietal occipital area and was transferred to [facility] for further management. On [facility] arrival NIHSS was 20 and CTH showed [...] disorder POA: Yes Methamphetamine intoxication POA: Yes Arrowsmith coma scale total score 4 or 5 [...] to engage in desired activity. Outcome: Progressing DSTITCH HEMMER * Mariola Oviedo MD - 08/26/2021 4:55 PM CST Family Notification Documentation Contact made: 08/26/2021 4:55 PM Method of communication: In-person Summary of discussion Family updated at bedside in the afternoon. All questions answered. DSTITCH HEMMER * Cm Escobedo RN - 08/26/2021 3:15 PM CST Case Management Progress Note Anticipated level of care at discharge: Acute Rehab Facility, Intermediate - Skilled Facility, Psychiatric Facility Discharge Plan: [...] Medications: Transportation: Name: Cm Escobedo RN Phone: [phone] DSTITCH HEMMER * Usman Mcdonald MD - 08/26/2021 8:54 [...] From 5pm to 7am please refer to [employer]) to reach the resident box order person (changes daily) Secure chat can be used for non-urgent issues only, please expect a reasonable amount of time for responses DSTITCH HEMMER * Marcio Jones - 08/26/2021 7:45 AM [...] also given mannitol. Pt was transferred to [facility], reports have state he would ex tend [...] Verfied that pt's pharmacy was at the [facility] in [place], [place]. Mentioned that patient was suppose to have an appoint with his doctor to assess pt's liver via ultrasound. ?? Called [facility] pharmacy which confirmed that patient currently takes [...] 51yo M w/ PMH bipolar transferred to [facility] for further management of left parietal IPH [...] presence of the primary team staff, residents, PT/OT/TOBACCO DRYING MACHINE OPERATOR and CM/SW. Length of stay: 2 Disposition: [...] LDL, LDLCALC, LDLDIRECT, CHOLHDL in the last 93638 hours. No results for input(s): HGBA1C in the last 05430 hours. Recent Labs Component Name 08/26/213108/25/2141908/24/21193510/21/18 0359 [...] 504 hours. Gabriele Riley MD Vascular Neurology DSTITCH HEMMER * Connie Graves RN - 08/25/2021 8:32 PM CST Will continue to monitor pt closely DSTITCH HEMMER * Mariola Oviedo MD - 08/25/2021 4:02 PM CST Family Notification Documentation Contact made: 08/25/2021 4:02 PM Person(s) contacted: Mother and Sister Method of communication: In-person Duration of discussion: 15 minutes Summary of discussion Updated during morning rounds and in the afternoon. Explained clinical course and answered all questions DSTITCH HEMMER * Cm Escobedo RN - 08/25/2021 3:15 [...] Contact Information Primary Emergency Contact: Henok Stahl [facility] Mobile Relation: Friend Secondary Emergency Contact: Benson Dubose [facility] Mobile Relation: Sister Mother: tracee dubose Mobile Anticipated level of care at discharge: Acute Rehab Facility, Intermediate - Skilled Facility, Psychiatric Facility For patients discharging home with Home Health, [facility] or other outpatient services, has thefamily or [...] have money to get more.: Never true Sign Out Clerk Referral: Yes Community Resources provided: Patient and/or Family Questions/Concerns: none Will continue to follow. For any questions or needs please contact: Dinner Cook Name/Phone number: Cm Escobedo RN [phone] DSTITCH HEMMER * Marcio Jones - 08/25/2021 1:17 PM [...] also given mannitol. Pt was transferred to [facility], reports have state he would ex tend [...] Verfied that pt's pharmacy was at the [facility] in [place], [place]. Mentioned that patient was suppose to have an appoint with his doctor to assess pt's liver via ultrasound. Called [facility] pharmacy which confirmed that patient currently takes [...] , Neurocritical Care Attending Marcio Jones MS4 DSTITCH HEMMER Associated attestation - Susan Reynaga MD - 08/25/2021 7:25 PM BLINDSTITCH HEMMER Neurocritical Care Attending I have verified the [...] intoxication POA: Yes Intracerebral bleed POA: Yes Arrowsmith coma scale total score 4 or 5 [...] Will continue to monitor neurological status closely. DSTITCH HEMMER * Linh Lin OT - 08/25/2021 11:35 AM CST [facility] Department of Physical Medicine & Rehabilitation Progress Note Patient: Chester Dubose Jr. Med Record Number: [id number] Date of : 1970 Age: [age] year old 08/25/21 1100 Therapy on Hold Therapy on Hold Chart Reviewed Hold per daily stroke rounds. Pt is on bedrest and will require updated activity order prior to mobility. DSTITCH HEMMER * Arnie Chand - 08/25/2021 9:27 AM [...] Contact Information Primary Emergency Contact: Henok Stahl [facility] Mobile Relation: Friend Secondary Emergency Contact: Benson Dubose [facility] Mobile Relation: Sister Mother: tracee dubose Mobile Have they been contacted? Yes PIPER Dumont MBA Sign Out Clerk [phone] 08/25/2021 9:27 AM DSTITCH HEMMER * Linh Horvath PT - 08/25/2021 9:00 AM CST [facility] Department of Physical Medicine & Rehabilitation Progress Note Patient: Chester Dubose Jr. Med Record Number: [id number] Date of : 1970 Age: [age] year old 08/25/21 0900 Therapy on Hold Therapy on Hold Chart Reviewed;New Order Required for Therapy Pt is currently intubated and sedated, not appropriate for mobility at this time. Please re-order when medically appropriate to participate. DSTITCH HEMMER * Usman Mcdonald MD - 08/25/2021 7:18 [...] From 5pm to 7am please refer to [employer]) to reach the resident box order person (changes daily) Secure chat can be used for non-urgent issues only, please expect a reasonable amount of time for responses DSTITCH HEMMER * Connie Graves RN - 08/25/2021 1:52 AM CST Pt is sedated and intubated, no evidence of learning. Mother called and updated of patient's current condition. DSTITCH HEMMER * Nilson Rondon RCP - 08/24/2021 6:58 PM CST Intubated pt received from [facility], placed on VENT and transported to . Nilson Rondon RCP DSTITCH HEMMER documented in this encounter H&P Notes * Angelita Gaitan - 08/30/2021 12:35 PM CDT [facility] Consult Psychiatry History and Physical Name: Chester Dubose Jr. Age: [age] year old Date of : 1970 Location: [facility] Reason for consult: Suicidal attempt by consuming [...] [facility]. 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 [...] Benson Dubose Living situation: alone at a [place] Marriage/ Relationship: single Employment History: not [...] QTC Calculation (Bezet) 493 ms Calculated P [place] -4 degrees Calculated R [place] 126 degrees Calculated T [place] 127 degrees Interpretation EKG SUSPECT LIMB LEAD REVERSAL SINUS RHYTHM WITH SHORT [place] MINIMAL VOLTAGE CRITERIA FOR LVH, MAY BE NORMAL VARIANT ( Sokolow-Calderon ) PROLONGED QT ABNORMAL ECG WHEN COMPARED WITH ECG OF 15-OCT-2018 08:33, SUSPECT LIMB LEADS ARE NOW REVERSED Confirmed by Rod Friedman ([id number]) on 08/27/2021 5:28:48 PM EKG 12-LEAD Result Value Ref Range Ventricular Rate 72 BPM Atrial Rate 72 BPM P-R Interval 150 ms QRS Duration ms 84 ms Q-T Interval ms 376 ms QTC Calculation (Bezet) 411 ms Calculated P [place] 49 degrees Calculated R [place] 57 degrees Calculated T [place] 49 degrees Interpretation EKG NORMAL SINUS RHYTHM [...] QTC Calculation (Bezet) 416 ms Calculated P [place] 56 degrees Calculated R [place] 68 degrees Calculated T [place] 66 degrees Interpretation EKG NORMAL SINUS RHYTHM NORMAL ECG WHEN COMPARED WITH ECG OF 27-AUG-2021 13:24, NO SIGNIFICANT CHANGE WAS FOUND TFT: No results for input(s): TSH, T3, T3FREE, T4, T4FREE in the last 76283 hours. A1c: Recent Labs Component Name 08/26/21 0032 HGBA1C 5.1 EAG 100 Lipid: No results for input(s): CHOL, TRIG, HDL, LDLCALC in the last 45213 hours. Other: BAL: Recent Labs Component Name [...] bipolar disorder. The patient was transferred from [facility] for neurology consult. Per note, he [...] 51yo M w/ PMH bipolar transferred to [facility] for further management of left parietal IPH [...] presence of the primary team staff, residents, PT/OT/TOBACCO DRYING MACHINE OPERATOR and CM/SW. Length of stay: 1 Disposition: TBD Date Estimated to be Medically Ready for Discharge: 09/01/2021 Problem List: Present on Admission: ??? Bipolar 1 disorder ??? Methamphetamine intoxication ??? Intracerebral bleed ??? Arrowsmith coma scale total score 4 or 5 [...] LDL, LDLCALC, LDLDIRECT, CHOLHDL in the last 91122 hours. No results for input(s): HGBA1C in the last 41485 hours. Recent Labs Component Name 08/25/21 0420 [...] 504 hours. Gabriele Riley MD Vascular Neurology DSTITCH HEMMER * Froilan Vela - 08/24/2021 7:10 PM CST [facility] Stroke History and Physical Chester Dubose Jr. Age: [age] year old Date of : 1970 Date of Admission: 08/24/2021 Hospital Day: 0 History of Present Illness Date last known well: 08/24/21 Time last known well: - Blood Glucose: - Blood Pressure: 126/78 Timeline EMS called tPA started at [facility] Code Stroke Paged 18:22 Arrival at [facility] ED 18:51 NIHSS Completed 18:55 First Imaging [...] on a nicardipine drip. Upon arrival to [facility] he was minimally responsive but extending his [...] intoxication POA: Yes Intracerebral bleed POA: Yes Arrowsmith coma scale total score 4 or 5 [...] place - Pantoprazole for GI prophylaxis - TOBACCO DRYING MACHINE OPERATOR swallow evaluation Renal/Electrolytes No acute issues - [...] PT/OT pending Froilan Vela PGY-3 Neurology Resident DSTITCH HEMMER documented in this encounter Procedure Notes * Herbert Jacobs DO - 08/29/2021 8:56 AM CDT [facility] EEG REPORT Patient Name: Chester Dubose Jr. EEG#: [id number] Recording Start Time: 22:01 PM 08/24/2021 Epoch [...] Germain MD - 08/28/2021 10:06 AM CDT [facility] EEG REPORT Patient Name: Chester Dubose Jr. EEG#: [id number] Recording Start Time: 22:01 PM 08/24/2021 Epoch [...] No skin breakdown was seen at A1. DSTITCH HEMMER * Nilson Germain MD - 08/27/2021 9:17 AM CST [facility] EEG REPORT Patient Name: Chester Dubose Jr. EEG#: [id number] Recording Start Time: 22:01 PM 08/24/2021 Epoch [...] Germain MD - 08/26/2021 9:32 AM CST [facility] EEG REPORT Patient Name: Chester Dubose Jr. EEG#: [id number] Recording Start Time: 22:01 PM 08/24/2021 Epoch [...] check performed. No skin breakdown under Fp1. DSTITCH HEMMER * Chevy Mcwilliams - 08/25/2021 10:01 AM CSTProcedure(s): EEG VIDEO MONITORING Corrected 1 electrode impedance. All electrode impedances are below 10k Ohms. Vitals were noted on the EEG. DSTITCH HEMMER * Nilson Germain MD - 08/25/2021 9:47 AM CST [facility] EEG REPORT Patient Name: Chester Dubose Jr. EEG#: [id number] Recording Start Time: 22:01 PM 08/24/2021 Epoch [...] ofsuppressed and discontinuous background. Nilson Germain MD DSTITCH HEMMER documented in this encounter Consult Notes * Arnie Chand - 08/31/2021 11:23 AM CDTAssociated Order(s): IP CONSULT TO JUNIOR SYSTEMS ANALYST New Facility Placement Date of referral: 08/31/2021 Admitted from: [facility], [facility] Special Needs: Yes, psychiatric, substance treatment Patient Goal (short term and shelter): Short Term Level of Care (SNF/Medicaid NH/Rehab/Group Home Care/LTACH): SNF List of facilities provided (within patient geographic preference): Yes Referrals initiated: Continued Care and Services - Admitted Since 08/24/2021 Destination Service Provider Request Status Selected Services Address Phone Fax Patient Preferred [facility] Pending - Request Sent N/A [address] [facility] [address] -- Current Capacity last updated by Katia Gonzalez on 02/01/2021 1242 BEDS AVAILABLE!! Let me know if you need anything :Katia Lamb [phone] [facility] Pending - Request Sent N/A [address] [facility] [address] -- DAT GUERRERO Pending - Request Sent N/A [address] [facility] [address] -- [facility] Pending - Request Sent N/A [address] [facility] [phone] -- [facility] Pending - Request Sent N/A [address] [facility] [address] [phone] -- Isaac De Olive[facility] (formerly [facility]) Pending - Request Sent N/A [address] [facility] [address] -- Current Capacity last updated by Marissa Rivera on 08/31/2021 1001 We currently have (2) Short-Stay Rehabilitation Beds Available. , , We will accept 10-day Post-COVID. , UHC, Essence, AETNA, Medicare and Active-Medicaid. , , Please call Marissa with any questions or for additional information. [facility] Pending - Request Sent N/A [address] [facility] [address] -- [facility] Pending - Request Sent N/A [address] [facility] [phone] -- [facility] Pending - Request Sent N/A [address] [facility] [address] -- [facility] Pending - Request Sent N/A [address] [facility] [address] [phone] -- [facility] Pending - Request Sent N/A [address] [place] [phone] -- [facility] Pending - Request Sent N/A [address] [place] [address] -- [facility] Pending - Request Sent N/A [address] [facility] [address] [phone] -- [facility] Pending - Request Sent N/A [address] [facility] [address] [phone] -- [facility] Pending - Request Sent N/A [address] [facility] [address] [phone] -- [facility] Pending - Request Sent N/A [address] [facility] [phone] -- [facility] Pending - Request Sent N/A [address] [facility] [phone] -- [facility] Pending - Request Sent N/A [address] [facility] [address] [phone] -- [facility] Pending - Request Sent N/A [address] [facility] [address] [phone] -- CEDRIC HURTADO Declined History of violence and/or drug/alcohol abuse N/A [address] [facility] [phone] -- Current Capacity last updated by Ching Reyna on 05/13/2021 [address] has several semi or private rooms available for female or male residents. We have just opened our short term wing again, they are all private rooms. We take Medicare, Medicaid, Medicaid pending, [employer], and [facility]. [facility] Declined Facility cannot provide for patient's needs N/A [address] [facility] [phone] -- [place] Declined No contract with patient's insurance carrier N/A [address] [facility] [id number] -- If Medicare-3 day qualifying stay verified: Yes monitoring facility responses Comments: Consult acknowledged. SANTINO assigned and following. In addition to referrals submitted by [facility]. SANTINO submitted additional referrals near/about Pt's home address. PIPER Dumont MBA Sign Out Clerk [phone] 08/31/2021 11:25 AM * Fannie Blakely RN - 08/30/2021 3:14 PM CDTAssociated Order(s): IP CONSULT TO WORKERS' COMPENSATION COMMISSIONER I have been consulted due to the possibility or diagnosis of stroke, chart reviewed. Patient Name: Chester Dubose JrDenis Arrival: Start: Start (08/24/211835) Last Known Well: 08/24/2021 - Unknown Time EMS Activated Code Stroke: Yes Arrival Mode: Transfer from Outside Facility Arrival Service(document name here): Air Evac Blood drawn COATER SLATE: YES IV Placed: Yes Initial Blood Pressure: [...] dictated by Meena Wall MD (vice president of software development). Dr. RADHA Londono M.D. have personally reviewed [...] dictated by Axel Weaver MD (vice president of software development). This report was approved by Axel Weaver [...] Dictated by Nemesio Graves DO (vice president of software development). Dr. PRABHJOT Londono MD have personally reviewed [...] drafted by Octavio Shaffer MD (vice president of software development) Dr. MELINA Londono have personally reviewed and [...] Dictated by Nemesio donahue DO (vice president of software development). Dr. PRABHJOT Londono MD have personally reviewed [...] Dictated by Nemesio Graves DO (vice president of software development) Dr. RADHA Londono M.D. have personally reviewed [...] dictated by Axel Weaver MD (vice president of software development). This report was approved by Axel Weaver [...] by Jose R Bess M.D. (vice president of software development). IDr. REMEDIOS MD, [facility] have personally reviewed and interpreted this e xamination/study. This report was electronically signed by REMEDIOS MARQUEZ MD, [facility] on 08/30/2021 2:22 PM . XR ABDOMEN KUB PORTABLE Result Date: 08/25/2021 FINDINGS/IMPRESSION: Enteric tube is seen coursing below the diaphragm with tip terminating in the expected location of the gastric fundus. Report dictated by Jose R Bess M.D. (vice president of software development). I, Dr. REMINGTON ROGERS have personally reviewed [...] verification. Dictated by Nemesio Graves DO (residential construction instructor) Dr. RADHA Londono M.D. have personally reviewed and interpreted this examination/study. This report was electronically signed by RADHA TEJADA M.D. on 08/25/2021 8:30 AM . Thank you for allowing me to participate in the care of Chester Dubose Jr.. Fannie Blakely, MACIELN, CNRN, SCRN Brimming Machine Operator, [facility] Office: [phone] Ascom: [phone] Email: [email or web address] * Francoise Omer APRN-ENVIRONMENTAL GEOLOGIST - 08/30/2021 2:37 PM CDTAssociated Order(s): IP CONSULT TO PSYCHIATRY [facility] Consult Psychiatry History and Physical Name: Chester Dubose Jr. 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 Per chart visit 2019 [facility] history of anxiety depression, prev given bipolar/ schizophrenia diagnosisbut in context of ongoing polysubstance use. reproted depression and anxiety no real luis identified, having both auditory and visual hallucinations of murmurs and shadows. No recent hospitalization for primary psych illness. Patient reports prior ETOH, Tobacco, Cocaine, Marijuana abuse and remote IVDU. [facility] ED note 2018 ?? 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 Education: GED-difficulty in school, [...] QTC Calculation (Bezet) 493 ms Calculated P [place] -4 degrees Calculated R [place] 126 degrees Calculated T [place] 127 degrees Interpretation EKG SUSPECT LIMB LEAD REVERSAL SINUS RHYTHM WITH SHORT [place] MINIMAL VOLTAGE CRITERIA FOR LVH, MAY BE NORMAL VARIANT ( Sokolow-Calderon ) PROLONGED QT ABNORMAL ECG WHEN COMPARED WITH ECG OF 15-OCT-2018 08:33, SUSPECT LIMB LEADS ARE NOW REVERSED Confirmed by Rod Friedman ([id number]) on 08/27/2021 5:28:48 PM EKG 12-LEAD Result Value Ref Range Ventricular Rate 72 BPM Atrial Rate 72 BPM P-R Interval 150 ms QRS Duration ms 84 ms Q-T Interval ms 376 ms QTC Calculation (Bezet) 411 ms Calculated P [place] 49 degrees Calculated R [place] 57 degrees Calculated T [place] 49 degrees Interpretation EKG NORMAL SINUS RHYTHM [...] QTC Calculation (Bezet) 416 ms Calculated P [place] 56 degrees Calculated R [place] 68 degrees Calculated T [place] 66 degrees Interpretation EKG NORMAL SINUS RHYTHM NORMAL ECG WHEN COMPARED WITH ECG OF 27-AUG-2021 13:24, NO SIGNIFICANT CHANGE WAS FOUND TFT: No results for input(s): TSH, T3, T3FREE, T4, T4FREE in the last 16673 hours. A1c: Recent Labs Component Name 08/26/21 0032 HGBA1C 5.1 EAG 100 Lipid: No results for input(s): CHOL, TRIG, HDL, LDLCALC in the last 28747 hours. HIV non reactive Other: BAL: Recent [...] attempt as delirium improves -observe needs for corporate safety coordinator if indicated Medical problems: 1.Hemmorrhagic Stroke L [...] CDT The case was discussed with the SANDWICH MAKER/PA, and I have reviewed their note below. * Arnie Chand - 08/30/2021 9:43 AM CDTAssociated Order(s): IP CONSULT TO JUNIOR SYSTEMS ANALYST Substance Abuse-Brief Interview We acknowledge the referral. Patient not appropriate for assessment. PIPER Dumont MBA Sign Out Clerk [phone] 08/30/2021 9:43 AM * Harlan Dunbar MD - 08/27/2021 11:04 AM CSTAssociated Order(s): IP CONSULT TO GASTROENTEROLOGY GASTROENTEROLOGY CONSULT Chester Dubose Jr. Age: [age] year old Date of : 1970 Date of Admission: 08/24/2021 Reason for Consult: Budd Chiari syndrome Requesting Team: Neurology Subjective: History of Present Illness: Chester Dubose Jr. is a 51 year old male with a history of alcohol related liver cirrhosis (follows at [facility]), Hep C s/p treatment polysubstance abuse, bipolar [...] dictated by Meena Wall MD (vice president of software development). I, Dr. RADHA TEJADA M.D. have personally [...] dictated by Axel Weaver MD (vice president of software development). This report was approved by Axel Weaver [...] drafted by Octavio Shaffer MD (vice president of software development) Dr. MELINA Londono have personally reviewed and [...] Dictated by Nemesio donahue DO (vice president of software development). Dr. PRABHJOT Londono MD have personally reviewed [...] Dictated by Nemesio Graves DO (vice president of software development) Dr. RADHA Londono M.D. have personally reviewed [...] dictated by Axel Weaver MD (vice president of software development). This report was approved by Axel Weaver [...] by Jose R Bess M.D. (vice president of software development). I, Dr. REMINGTON ROGERS have personally reviewed [...] verification. Dictated by Nemesio Graves DO (residential construction instructor) I, Dr. RADHA TEJADA M.D. have personally [...] of alcohol related liver cirrhosis (follows at [facility]), Hep C s/p treatment polysubstance abuse, bipolar [...] (s/p banding 2019), Ascites, HE Follows with [facility] hepatology Intraparenchymal hemorrhage Polysubstance [...] Dunbar MD PGY-4, Gastroenterology & Hepatology Fellow [facility] DSTITCH HEMMER Associated attestation - Miroslava Gonsalez MD - 08/27/2021 2:23 PM BLINDSTITCH HEMMER I have seen and examined the patient [...] 9:52 AM CSTAssociated Order(s): IP CONSULT TO TRADE SHOW SPECIALIST PULMONARY CONSULT NOTE 08/27/21 9:52 AM Patient Name: Chester Dubose Jr. Date of Admission:08/24/2021 6:40 PM Consult requested by: Neuro Critical Care Team Attending Physician:Olegario Villagomez MD Reason for consultation: Vent management HPI: Chester Dubose Jr. is a 51 year old male w/ PMH bipolar disorder, MDD/anxiety c/b prior suicide attempts, substance use (meth, EtOH, cocaine, marijuana), EtOH cirrhosis who presented to [facility] on 08/24 for suicide attempt. [...] 105* 210* Recent Labs Component Name 08/24/21220108/24/211935 [id number] 21 22 STUDIES THIS ADMISSION: CXR: reviewed [...] of Pulmonary, Critical Care, & Sleep Medicine [facility] DSTITCH HEMMER Associated attestation - Justus Yi MD - 08/27/2021 1:17 PM BLINDSTITCH HEMMER I have seen and examined the patient [...] education at this time. Last BM - COATER SLATE. RD to follow. Assessment: Med/Surg History and [...] Pain affecting intake: No Estimated Needs: KCAL: 1361-0293 (20-25kcal/kg of ABW) Protein (g): 86-143 (1.2-2g/kg [...] displayed. No results for input(s): HGBA1C, A1C, WYHHAPYQX7M, EAG in the last 16022 hours. Medications: Current Facility-Administered Medications Medication ??? [...] Nutrition Goal Progress: New goal established [id number] DSTITCH HEMMER * Sheryl Whitten RN - 08/25/2021 8:28 AM CSTAssociated Order(s): IP CONSULT TO PHYSICAL MED AND REHAB [facility] Rehab has initiated an evaluation per stroke protocol. Will continue to follow for medical stability and tolerance/participation in therapies. Thank you for the referral. Sheryl Whitten RN, BSN Clinical Liaison [facility] [phone] DSTITCH HEMMER * Michael Donahue MD - 08/24/2021 7:10 [...] Saldana. Michael Donahue MD 08/24/2021 7:10 PM DSTITCH HEMMER documented in this encounter ED Notes * Romel Lantigua RN - 08/24/2021 7:26 PM CST Bed: AC30 Expected date: Expected time: Means of arrival: Comments: T5 DSTITCH HEMMER * Pam Condon RN - 08/24/2021 7:14 PM CST Time of first slice. DSTITCH HEMMER * Thien Augustin MD - 08/24/2021 7:06 PM CST Images from the original note were not included. OSH CT scan DSTITCH HEMMER * Romel Lantigua RN - 08/24/2021 6:52 PM CST Bed: T05 Expected date: Expected time: Means of arrival: Comments: Code stroke Page [phone] DSTITCH HEMMER * Thien Augustin MD - 08/24/2021 6:44 PM CST ED ATTENDING NOTE Patient seen as a team with the resident Dr. Fleming, who has contributed to this note. History: Chester Dubose Jr. is a 51 year old male with a past medical history that includes Bipolar 1 disorder [facility]. Patient is intubated upon arrival and is not responsive. [facility] flight notes that patient presented to OSH [...] not screen for Propoxyphene, Meprobamate, Carisoprodol, Trazodone, ogdd-akp-nxadlup medications and/or volatiles (Acetone, Isopropanol, Methanol or Ethylene Glycol). Ethanol, Salicylate, Acetaminophen, Tricyclic Antidepressants and several therapeutic drugsmay be individually assayed in serum or plasma specimen. Toxicology testing by the [facility] is an aid to medical diagnosisand treatment of patients. No documented chain of custody was maintained. Results are intended to be used for clinical purposes only. URINALYSIS REFLEX TO MICROSCOPIC NO CULTURE - Abnormal; Notable for the following components: Specific Arbuckle UA 1.046 (*) Ketone UA Trace (*) [...] CONSULT TO NUTRITIONAL SERV IP CONSULT TO WORKERS' COMPENSATION COMMISSIONER CONSULT TO REHAB PULSE OXIMETRY, CONTINUOUS MECHANICAL [...] personal performance and is accurate and complete. DSTITCH HEMMER documented in this encounter Plan of Treatment Upcoming Encounters Date Type Department Care Team (Late st Contact Info) Description 08/25/2024 1:10 PM CDT Documentation [address] [phone] 08/25/2024 1:20 PM CDT Office Visit [address] [phone] Migue Reeder MD [address] [place] [phone] documented as of this encounter Procedures [...] CDT PT-INR [facility]H Routine 08/28/2021 12:13 AM BLINDSTITCH HEMMER CBC W/O DIFFERENTIAL Routine 08/28/2021 12:13 AM BLINDSTITCH HEMMER BASIC METABOLIC PANEL (CALCIUM TOTAL) Routine 08/28/2021 12:13 AM BLINDSTITCH HEMMER PHOSPHORUS BLOOD Routine 08/28/2021 12:1 3 AM BLINDSTITCH HEMMER MAGNESIUM BLOOD Routine 08/28/2021 12:13 AM BLINDSTITCH HEMMER CULTURE SPUTUM+GRAM STAIN Routine 08/27/2021 5:05 PM BLINDSTITCH HEMMER URINALYSIS REFLEX TO MICROSCOPIC NO CULTURE Routine 08/27/2021 5:05 PM BLINDSTITCH HEMMER CULTURE BLOOD Timed 08/27/2021 5:05 PM BLINDSTITCH HEMMER CULTURE BLOOD Timed 08/27/2021 5:05 PM BLINDSTITCH HEMMER XR CHEST 1VW PORTABLE Routine 08/27/2021 4:47 PM BLINDSTITCH HEMMER Leukocytosis, unspecified type EKG 12-LEAD Routine 08/27/2021 1:24 PM BLINDSTITCH HEMMER Leukocytosis, unspecified type COMPREHENSIVE METABOLIC PANEL Routine 08/27/2021 10:43 AM BLINDSTITCH HEMMER AMMONIA Routine 08/27/2021 10:43 AM BLINDSTITCH HEMMER PT-INR SLH Routine 08/27/2021 12:23 AM BLINDSTITCH HEMMER HIV-1 HIV-2 ANTIBODY + HIV P24 AG PANEL Routine 08/27/2021 12:23 AM BLINDSTITCH HEMMER CBC W/O DIFFERENTIAL Routine 08/27/2021 12:23 AM BLINDSTITCH HEMMER BASIC METABOLIC PANEL (CALCIUM TOTAL) Routine 08/27/2021 12:23 AM BLINDSTITCH HEMMER PHOSPHORUS BLOOD Routine 08/27/2021 12:2 3 AM BLINDSTITCH HEMMER MAGNESIUM BLOOD Routine 08/27/2021 12:23 AM BLINDSTITCH HEMMER MRI BRAIN WWO CONTRAST Routine 08/26/2021 11:00 PM BLINDSTITCH HEMMER Nontraumatic intracerebral hemorrhage, unspecified cerebral location, unspecified laterality (HCC) CARDIAC EKG ORDER 08/26/2021 2:1 1 PM BLINDSTITCH HEMMER US ABDOMEN DOPPLER ONLY COMP Routine 08/26/2021 12:16 PM BLINDSTITCH HEMMER Alcoholic cirrhosis of liver without ascites (HCC) US ABDOMEN LIMITED Routine 08/26/2021 12 :16 PM BLINDSTITCH HEMMER Cirrhosis of liver without ascites, unspecified hepatic cirrhosis type (HCC) XR CHEST 1VW PORTABLE Routine 08/26/2021 9:20 AM BLINDSTITCH HEMMER Leukocytosis, unspecified type GLUCOSE - POINT OF CARE Routine 08/26/2021 8:46 AM BLINDSTITCH HEMMER GLUCOSE - POINT OF CARE Routine 08/26/2021 4:35 AM BLINDSTITCH HEMMER GLUCOSE - POINT OF CARE Routine 08/26/2021 4:01 AM BLINDSTITCH HEMMER PT-INR SLH Routine 08/26/2021 12:32 AM BLINDSTITCH HEMMER HEMOGLOBIN A1C Routine 08/26/2021 12:32 AM BLINDSTITCH HEMMER CBC W/O DIFFERENTIAL Routine 08/26/2021 12:32 AM BLINDSTITCH HEMMER BASIC METABOLIC PANEL (CALCIUM TOTAL) Routine 08/26/2021 12:32 AM BLINDSTITCH HEMMER PHOSPHORUS BLOOD Routine 08/26/2021 12:3 2 AM BLINDSTITCH HEMMER MAGNESIUM BLOOD Routine 08/26/2021 12:32 AM BLINDSTITCH HEMMER GLUCOSE - POINT OF CARE Routine 08/25/2021 11:38 PM BLINDSTITCH HEMMER GLUCOSE - POINT OF CARE Routine 08/25/2021 7:49 PM BLINDSTITCH HEMMER ECHO COMPLETE W BUBBLE STUDY Routine 08/25/2021 1:56 PM BLINDSTITCH HEMMER Alcohol dependence with withdrawal delirium (HCC) ALCOHOL ETHYL BLOOD Routine 08/25/2021 1 2:09 PM BLINDSTITCH HEMMER XR ABDOMEN KUB PORTABLE STAT 08/25/2021 11:04 AM BLINDSTITCH HEMMER Dysphagia, unspecified type PT-INR SLH Routine 08/25/2021 4:20 AM BLINDSTITCH HEMMER TROPONIN I Timed 08/25/2021 4:20 AM BLINDSTITCH HEMMER CBC W/O DIFFERENTIAL Routine 08/25/2021 4:20 AM BLINDSTITCH HEMMER BASIC METABOLIC PANEL (CALCIUM TOTAL) Routine 08/25/2021 4:[address] HEAD WO CONTRAST Routine 08/25/2021 2 :23 AM BLINDSTITCH HEMMER Nontraumatic intracerebral hemorrhage, unspecified cerebral location, unspecified laterality (HCC) TROPONIN I Timed 08/24/2021 10:02 PM BLINDSTITCH HEMMER BLOOD GASES ART + COOX PANEL STAT 08/24/2021 10:02 PM BLINDSTITCH HEMMER XR CHEST 1VW PORTABLE STAT 08/24/2021 8:17 PM BLINDSTITCH HEMMER Nontraumatic intracerebral hemorrhage, unspecified cerebral location, unspecified laterality (HCC) EKG 12-LEAD STAT 08/24/2021 7:59 PM BLINDSTITCH HEMMER Intentional drug overdose, 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 (HCC) DRUG SCREEN EXPANDED TOXICOLOGY URINE PANEL STAT 08/24/2021 7:45 PM BLINDSTITCH HEMMER URINALYSIS REFLEX TO MICROSCOPIC NO CULTURE STAT 08/24/2021 7:45 PM BLINDSTITCH HEMMER URINE DRUG SCREEN IMMUNOASSAY STAT 08/24/2021 7:45 PM BLINDSTITCH HEMMER PT-INR SLH STAT 08/24/2021 7:36 PM BLINDSTITCH HEMMER TROPONIN I STAT 08/24/2021 7:36 PM BLINDSTITCH HEMMER TYPE + SCREEN PANEL STAT 08/24/2021 7 :36 PM BLINDSTITCH HEMMER CBC W AUTO DIFFERENTIAL STAT 08/24/2021 7:36 PM BLINDSTITCH HEMMER COMPREHENSIVE METABOLIC PANEL STAT 08/24/2021 7:36 PM BLINDSTITCH HEMMER LACTIC ACID BLOOD STAT 08/24/2021 7:3 6 PM BLINDSTITCH HEMMER CK BLOOD STAT 08/24/2021 7:36 PM BLINDSTITCH HEMMER BLOOD GASES ART + COOX PANEL STAT 08/24/2021 7:36 PM BLINDSTITCH HEMMER SALICYLATE LEVEL BLOOD STAT 08/24/2021 7:36 PM BLINDSTITCH HEMMER ACETAMINOPHEN LEVEL STAT 08/24/2021 7 :[address] CHEST ABDOMEN PELVIS W CONT STAT 08/24/2021 7:31 PM BLINDSTITCH HEMMER Intentional drug overdose, 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 (HCC) CT ANGIO BRAIN AND NECK STAT 08/24/2021 7:30 PM BLINDSTITCH HEMMER Intentional drug overdose, 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 (HCC) CT BRAIN STROKE STAT 08/24/2021 7:16 PM BLINDSTITCH HEMMER Intentional drug overdose, 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 (HCC) OT EVAL AND TREAT Routine 08/24/2021 7:0 3 PM BLINDSTITCH HEMMER PT EVAL AND TREAT Routine 08/24/2021 7:0 3 PM BLINDSTITCH HEMMER documented in this encounter Results * CARDIAC EKG ORDER (09/21/2021 11:06 AM CDT) Narrative 09/21/2021 11:06 AM CDT Ordered by an unspecified provider. Scanned Document CARDIAC SERVICES ORD ERABLES * SARS-COV-2 (COVID-19) RAPID (09/13/2021 3:50 PM CDT) COVID-19 PCR Not detected Not detected 09/14/19 22 4:42 PM CDT [facility] Microbiology SPECIMEN FROM NASOPHARYNGEAL STRUCTURE / Unknown Collection / Unknown 09/13/2021 3:50 PM CDT 09/13/2021 3:59 PM CDT [facility] - 09/13/2021 4:42 PM CDT The Cepheid [...] - MICROBIOLO GY ORDERABLES Performing Organization Address City/[facility]/ZIP Co de Phone Number [address] [address], [facility] [phone] * PHOSPHORUS BLOOD (09/13/2021 7:53 AM CDT) Phosphorus 3.5 2.8 - 5.1 mg/dL 09/13/2021 8:50 AM CDT [facility] Blood BLOOD SPECIMEN / Unknown Lab Venipuncture / Unknown 09/13/2021 7:53 AM CDT 09/13/2021 8:17 AM CDT Valdo Arevalo MD LAB - CHEMISTRY MIGUEL GOLD Performing Organization Address [facility] Co de Phone Number [address] [address], [facility] [phone] * MAGNESIUM BLOOD (09/13/2021 7:53 AM CDT) Magnesium 1.7 1.6 - 2.6 mg/dL 09/13/2021 8:50 AM CDT [facility] Blood BLOOD SPECIMEN / Unknown Lab Venipuncture / Unknown 09/13/2021 7:53 AM CDT 09/13/2021 8:17 AM CDT Valdo Arevalo MD LAB - CHEMISTRY MIGUEL GOLD Performing Organization Address City/[facility]/ZIP Co de Phone Number [address] [address], [facility] [phone] * (ABNORMAL) CBC W/O DIFFERENTIAL (09/13/2021 7:53 AM CDT) WBC 4.8 3.5 - 10.5 10? 3 /uL 09/13/2021 8:24 AM CDT [facility] RBC 3.25(L) 4.30 - 5.70 10? 6 /uL 09/13/2021 8:24 AM [facility] Hemoglobin 10.4(L) 12.0 - 17.6 g/dL 09/13/2021 8:24 AM [facility] Hematocrit 31.0(L) 35.2 - 51.7 % 09/13/2021 8:24 AM [facility] MCV 95.4 80.7 - 98.3 fL 09/13/2021 8:24 AM [facility] MCH 32.0 26.7 - 34.0 pg 09/13/2021 8:24 AM [facility] MCHC 33.5 30.8 - 35.9 g/dL 09/13/2021 8:24 AM [facility] Platelet Count 122(L) 150 - 400 10? 3 /uL 09/13/2021 8:24 AM [facility] RDW-SD 56.3(H) 36.0 - 50.0 fL 09/13/2021 8:24 AM [facility] RDW-CV 16.4(H) 11.2 - 14.8 % 09/13/2021 8:24 AM [facility] MPV 9.4 9.4 - 12.9 fL 09/13/2021 8:24 AM [facility] nRBC Absolute 0.00 0 10? 3 /uL 09/13/2021 8:24 AM [facility] nRBC Auto 0.0 0 /100 WBC 09/13/2021 8:24 AM [facility] Blood BLOOD SPECIMEN / Unknown Lab Venipuncture / Unknown 09/13/2021 7:53 AM CDT 09/13/2021 8:17 AM CDT Valdo Arevalo MD LAB - HEMATOLOGY ORD ERABLES [facility] [address] [place] [address], [facility] [phone] * (ABNORMAL) BASIC METABOLIC PANEL (CALCIUM TOTAL) (09/13/2021 7:53 AM CDT) BUN 8 7 - 26 mg/dL 09/13/2021 8:50 AM [facility] Creatinine 0.55(L) 0.71 - 1.16 mg/dL 09/13/2021 8:50 AM [facility] Sodium 142 136 - 145 mmol/L 09/13/2021 8:50 AM [facility] Potassium 3.7 3.5 - 4.5 mmol/L 09/13/2021 8:50 AM [facility] Chloride 109(H) 98 - 107 mmol/L 09/13/2021 8:50 AM [facility] CO2 24 22 - 29 mmol/L 09/13/2021 8:50 AM [facility] Glucose 93 70 - 115 mg/dL 09/13/2021 8:50 AM [facility] Calcium 8.0(L) 8.4 - 10.2 mg/dL 09/13/2021 8:50 AM [facility] Anion Gap 13 8 - 18 09/13/2021 8:50 AM [facility] BUN/Creatinine Ratio 15 7 - 23 09/13/2021 8:50 AM [facility] Osmolality Calculated 292 270 - 300 mOsm/kg 09/13/2021 8:50 AM [facility] eGFR by CKD-EPI >90 >=90 mL/min/1.7 3 m2 09/13/2021 8:50 AM [facility] Blood BLOOD SPECIMEN / Unknown Lab Venipuncture / Unknown 09/13/2021 7:53 AM CDT 09/13/2021 8:17 AM [facility] Valdo Arevalo MD LAB - CHEMISTRY MIGUEL GOLD [facility] Organization Address City/State/ZIP Co de Phone Number [facility] [address] [place] [address], [facility] [phone] * PHOSPHORUS BLOOD (09/08/2021 6:20 AM T) Phosphorus 3.0 2.8 - 5.1 mg/dL 09/08/2021 7:17 AM [facility] Blood BLOOD SPECIMEN / Unknown Lab Venipuncture / Unknown 09/08/2021 6:20 AM CDT 09/08/2021 6:50 AM CDT Valdo Arevalo MD LAB - CHEMISTRY MIGUEL GOLD [address] [address], [facility] [phone] * MAGNESIUM BLOOD (09/08/2021 6:20 AM CDT) Magnesium 1.7 1.6 - 2.6 mg/dL 09/08/2021 7:17 AM T [facility] Blood BLOOD SPECIMEN / Unknown Lab Venipuncture / Unknown 09/08/2021 6:20 AM CDT 09/08/2021 6:50 AM CDT Valdo Arevalo MD LAB - CHEMISTRY MIGUEL GOLD Performing Organization Address [facility]/ZIP Co de Phone Number [address] [address], [facility] [phone] * (ABNORMAL) CBC W/O DIFFERENTIAL (09/08/2021 6:20 AM CDT) WBC 4.5 3.5 - 10.5 10? 3 /uL 09/08/2021 7:12 AM [facility] Comment:All CBC parameters h ave been checked. RBC 3.64(L) 4.30 - 5.70 10? 6 /uL 09/08/2021 7:12 AM [facility] Hemoglobin 11.4(L) 12.0 - 17.6 g/dL 09/08/2021 7:12 AM [facility] Hematocrit 33.8(L) 35.2 - 51.7 % 09/08/2021 7:12 AM [facility] MCV 92.9 80.7 - 98.3 fL 09/08/2021 7:12 AM [facility] MCH 31.3 26.7 - 34.0 pg 09/08/2021 7:12 AM [facility] MCHC 33.7 30.8 - 35.9 g/dL 09/08/2021 7:12 AM [facility] Platelet Count 102(L) 150 - 400 10? 3 /uL 09/08/2021 7:12 AM [facility] RDW-SD 50.0 36.0 - 50.0 fL 09/08/2021 7:12 AM [facility] RDW-CV 15.2(H) 11.2 - 14.8 % 09/08/2021 7:12 AM [facility] MPV 9.5 9.4 - 12.9 fL 09/08/2021 7:12 AM [facility] nRBC Absolute 0.00 0 10? 3 /uL 09/08/2021 7:12 AM [facility] nRBC Auto 0.0 0 /100 WBC 09/08/2021 7:12 AM [facility] Blood BLOOD SPECIMEN / Unknown Lab Venipuncture / Unknown 09/08/2021 6:20 AM CDT 09/08/2021 6:50 AM T Valdo Arevalo MD LAB - HEMATOLOGY ORD ERABLES [facility] [address] [place] [phone], [facility] [phone] * (ABNORMAL) BASIC METABOLIC PANEL (CALCIUM TOTAL) (09/08/2021 6:20 AM CDT) BUN 10 7 - 26 mg/dL 09/08/2021 7:17 AM [facility] Creatinine 0.70(L) 0.71 - 1.16 mg/dL 09/08/2021 7:17 AM [facility] Sodium 136 136 - 145 mmol/L 09/08/2021 7:17 AM [facility] Potassium 4.2 3.5 - 4.5 mmol/L 09/08/2021 7:17 AM [facility] Chloride 104 98 - 107 mmol/L 09/08/2021 7:17 AM [facility] CO2 25 22 - 29 mmol/L 09/08/2021 7:17 AM [facility] Glucose 102 70 - 115 mg/dL 09/08/2021 7:17 AM CDT [facility] Calcium 7.8(L) 8.4 - 10.2 mg/dL 09/08/2021 7:17 AM [facility] Anion Gap 11 8 - 18 09/08/2021 7:17 AM [facility] BUN/Creatinine Ratio 14 7 - 23 09/08/2021 7:17 AM T [facility] Osmolality Calculated 281 270 - 300 mOsm/kg 09/08/2021 7:17 AM [facility] eGFR by CKD-EPI >90 >=90 mL/min/1.7 3 m2 09/08/2021 7:17 AM T [facility] Blood BLOOD SPECIMEN / Unknown Lab Venipuncture / Unknown 09/08/2021 6:20 AM CDT 09/08/2021 6:50 AM CDT Valdo Arevalo MD LAB - CHEMISTRY ORDSukhwinder GOLD Performing Organization Address City/[facility] Co de Phone Number [facility] [address] [place] [address], [facility] [phone] * EKG 12-LEAD (09/08/2021 5:56 AM CDT) [facility] Ventricular Rate 81 BPM SL MUSE Atrial Rate 81 BPM [facility] MUSE P-R Interval 150 ms [facility] MUSE QRS Duration ms 84 ms [facility] MUSE Q-T Interval ms 406 ms [facility] MUSE QTC Calculation (Bezet) 471 ms [facility] MUSE Calculated P [place] 31 degrees [facility] MUSE Calculated R [place] 27 degrees [facility] MUSE Calculated T [place] 36 degrees [facility] MUSE Interpretation EKG SINUS RHYTHM WITH FREQUENT PREMATURE VENTRICULAR COMPLEXES OTHERWISE NORMAL ECG WHEN COMPARED WITH ECG OF 07-SEP-2021 11:21 POOR R WAVE PROGRESSION IS NO LONGER PRESENT Confirmed by Rod Friedman ([id number]) on 09/09/2021 3:18:27 PM [facility] MUSE 09/08/2021 5:56 AM CDT 09/09/2021 3:18 PM CDT Valdo Arevalo MD ECG ORDERABLES [facility] ANDI * (ABNORMAL) BASIC METABOLIC PANEL (CALCIUM TOTAL) (09/07/2021 11:42 AM CDT) BUN 10 7 - 26 mg/dL 09/07/2021 12:17 PM [facility] Creatinine 0.60(L) 0.71 - 1.16 mg/dL 09/07/2021 12:17 PM [facility] Sodium 135(L) 136 - 145 mmol/L 09/07/2021 12:17 PM [facility] Potassium 4.1 3.5 - 4.5 mmol/L 09/07/2021 12:17 PM [facility] Chloride 104 98 - 107 mmol/L 09/07/2021 12:17 PM [facility] CO2 23 22 - 29 mmol/L 09/07/2021 12:17 PM [facility] Glucose 176(H) 70 - 115 mg/dL 09/07/2021 12:17 PM [facility] Calcium 7.9(L) 8.4 - 10.2 mg/dL 09/07/2021 12:17 PM [facility] Anion Gap 12 8 - 18 09/07/2021 12:17 PM [facility] BUN/Creatinine Ratio 17 7 - 23 09/07/2021 12:17 PM [facility] Osmolality Calculated 283 270 - 300 mOsm/kg 09/07/2021 12:17 PM [facility] eGFR by CKD-EPI >90 >=90 mL/min/1.7 3 m2 09/07/2021 12:17 PM [facility] Blood BLOOD SPECIMEN / Unknown Venipuncture / Unknown 09/07/2021 11:42 AM CDT 09/07/2021 11:49 AM CDT Valdo Arevalo MD LAB - CHEMISTRY MIGUEL GOLD [facility] [address] [place] [address], [facility] [phone] * EKG 12-LEAD (09/07/2021 11:21 AM CDT) Ventricular Rate 86 BPM [facility] MUSE Atrial Rate 86 BPM [facility] MUSE P-R Interval 138 ms [facility] MUSE QRS Duration ms 84 ms [facility] MUSE Q-T Interval ms 380 ms [facility] MUSE QTC Calculation (Bezet) 454 ms [facility] MUSE Calculated P [place] 37 degrees [facility] MUSE Calculated R [place] 55 degrees [facility] MUSE Calculated T [place] 48 degrees [facility] MUSE Interpretation EKG SINUS RHYTHM WITH OCCASIONAL PREMATURE VENTRICULAR COMPLEXES OTHERWISE NORMAL ECG WHEN COMPARED WITH ECG OF 05-SEP-2021 15:03, PREMATURE VENTRICULAR COMPLEXES ARE NOW PRESENT Confirmed by Rod Friedman ([id number]) on 09/09/2021 9:07:03 AM [facility] MUSE 09/07/2021 11:2 1 AM CDT 09/09/2021 9:07 AM CDT Valdo Arevalo MD ECG ORDERABLES [facility] MUSE * (ABNORMAL) PHOSPHORUS BLOOD (09/06/2021 1:46 AM CDT) Pathologist [facility] Phosphorus 2.4(L) 2.8 - 5.1 mg/dL 09/06/2021 2:51 AM CDT [facility] Blood BLOOD SPECIMEN / Unknown Lab Venipuncture / Unknown 09/06/2021 1:46 AM CDT 09/06/2021 2:21 AM CDT Olegario Villagomez MD LAB - CHEMISTRY ORD ERABLES [address] [address], [facility] [phone] * MAGNESIUM BLOOD (09/06/2021 1:46 AM CDT) Magnesium 1.6 1.6 - 2.6 mg/dL 09/06/2021 2:51 AM CDT [facility] Blood BLOOD SPECIMEN / Unknown Lab Venipuncture / Unknown 09/06/2021 1:46 AM CDT 09/06/2021 2:21 AM CDT Olegario Villagomez MD LAB - CHEMISTRY ORD ERABLES [facility] [address] [place] [address], [facility] [phone] * (ABNORMAL) CBC W/O DIFFERENTIAL (09/06/2021 1:46 AM CDT) WBC 9.2 3.5 - 10.5 10? 3 /uL 09/06/2021 2:41 AM [facility] RBC 3.44(L) 4.30 - 5.70 10? 6 /uL 09/06/2021 2:41 AM [facility] Hemoglobin 11.0(L) 12.0 - 17.6 g/dL 09/06/2021 2:41 AM [facility] Hematocrit 32.3(L) 35.2 - 51.7 % 09/06/2021 2:41 AM [facility] MCV 93.9 80.7 - 98.3 fL 09/06/2021 2:41 AM [facility] MCH 32.0 26.7 - 34.0 pg 09/06/2021 2:41 AM [facility] MCHC 34.1 30.8 - 35.9 g/dL 09/06/2021 2:41 AM [facility] Platelet Count 93(L) 150 - 400 10? 3 /uL 09/06/2021 2:41 AM [facility] RDW-SD 50.1(H) 36.0 - 50.0 fL 09/06/2021 2:41 AM [facility] RDW-CV 14.8 11.2 - 14.8 % 09/06/2021 2:41 AM [facility] MPV 10.1 9.4 - 12.9 fL 09/06/2021 2:41 AM [facility] nRBC Absolute 0.00 0 10? 3 /uL 09/06/2021 2:41 AM [facility] nRBC Auto 0.0 0 /100 WBC 09/06/2021 2:41 AM [facility] Blood BLOOD SPECIMEN / Unknown Lab Venipuncture / Unknown 09/06/2021 1:46 AM CDT 09/06/2021 2:21 AM CDT Olegario Villagomez MD LAB - HEMATOLOGY OR DERABLES [facility] [address] [place] [address], [facility] [phone] * (ABNORMAL) BASIC METABOLIC PANEL (CALCIUM TOTAL) (09/06/2021 1:46 AM CDT) BUN 8 7 - 26 mg/dL 09/06/2021 2:51 AM [facility] Creatinine 0.63(L) 0.71 - 1.16 mg/dL 09/06/2021 2:51 AM [facility] Sodium 133(L) 136 - 145 mmol/L 09/06/2021 2:51 AM [facility] Potassium 3.8 3.5 - 4.5 mmol/L 09/06/2021 2:51 AM [facility] Chloride 103 98 - 107 mmol/L 09/06/2021 2:51 AM [facility] CO2 21(L) 22 - 29 mmol/L 09/06/2021 2:51 AM [facility] Glucose 121(H) 70 - 115 mg/dL 09/06/2021 2:51 AM [facility] Calcium 7.4(L) 8.4 - 10.2 mg/dL 09/06/2021 2:51 AM [facility] Anion Gap 13 8 - 18 09/06/2021 2:51 AM [facility] BUN/Creatinine Ratio 13 7 - 23 09/06/2021 2:51 AM [facility] Osmolality Calculated 276 270 - 300 mOsm/kg 09/06/2021 2:51 AM [facility] eGFR by CKD-EPI >90 >=90 mL/min/1.7 3 m2 09/06/2021 2:51 AM [facility] Blood BLOOD SPECIMEN / Unknown Lab Venipuncture / Unknown 09/06/2021 1:46 AM CDT 09/06/2021 2:21 AM CDT Olegario Villagomez MD LAB - CHEMISTRY ORD ERABLES Performing Organization Address [facility] Co de Phone Number [facility] [address] [place] [address], [place] [phone] * EKG 12-LEAD (09/05/2021 3:03 PM CDT) Ventricular Rate 93 BPM [facility] MUSE Atrial Rate 93 BPM [facility] MUSE P-R Interval 144 ms [facility] MUSE QRS Duration ms 84 ms [facility] MUSE Q-T Interval ms 372 ms [facility] MUSE QTC Calculation (Bezet) 462 ms [facility] MUSE Calculated P [place] 23 degrees SL MUSE Calculated R [place] 44 degrees [facility] MUSE Calculated T [place] 57 degrees [facility] MUSE Interpretation EKG NORMAL SINUS RHYTHM NORMAL ECG WHEN COMPARED WITH ECG OF 01-SEP-2021 14:41, HR HAS INCREASED BY ??26 BPM QT HAS SHORTENED Confirmed by Rod Friedman ([id number]) on 09/07/2021 11:45:48 AM [facility] MUSE 09/05/2021 3:03 PM CDT 09/07/2021 11:45 AM CDT Valdo Arevaol MD ECG ORDERABLES Performing Organization Address [facility] de Phone Number [facility] MUSE * (ABNORMAL) PHOSPHORUS BLOOD (09/05/2021 1:22 AM CDT) [facility] Phosphorus 2.7(L) 2.8 - 5.1 mg/dL 09/05/2021 2:54 AM CDT [facility] Blood BLOOD SPECIMEN / Unknown Lab Venipuncture / Unknown 09/05/2021 1:22 AM CDT 09/05/2021 2:26 AM CDT Olegario Villagomez MD LAB - CHEMISTRY ORD ERABLES Performing Organization Address [facility]/ZIP Co de Phone Number [facility] [address] [place] [address], [place] [phone] * MAGNESIUM BLOOD (09/05/2021 1:22 AM CDT) Pathologist [facility] [place] Magnesium 1.7 1.6 - 2.6 mg/dL 09/05/2021 2:54 AM [facility] Blood BLOOD SPECIMEN / Unknown Lab Venipuncture / Unknown 09/05/2021 1:22 AM CDT 09/05/2021 2:26 AM CDT Olegario Villagomez MD LAB - CHEMISTRY ORD ERABLES [facility] [address] [place] [address], [facility] [phone] * (ABNORMAL) CBC W/O DIFFERENTIAL (09/05/2021 1:22 AM CDT) Pathologist [facility] WBC 8.1 3.5 - 10.5 10? 3 /uL 09/05/2021 2:33 AM [facility] RBC 3.56(L) 4.30 - 5.70 10? 6 /uL 09/05/2021 2:33 AM [facility] Hemoglobin 11.3(L) 12.0 - 17.6 g/dL 09/05/2021 2:33 AM [facility] Hematocrit 33.1(L) 35.2 - 51.7 % 09/05/2021 2:33 AM [facility] MCV 93.0 80.7 - 98.3 fL 09/05/2021 2:33 AM [facility] MCH 31.7 26.7 - 34.0 pg 09/05/2021 2:33 AM [facility] MCHC 34.1 30.8 - 35.9 g/dL 09/05/2021 2:33 AM [facility] Platelet Count 106(L) 150 - 400 10? 3 /uL 09/05/2021 2:33 AM [facility] RDW-SD 50.9(H) 36.0 - 50.0 fL 09/05/2021 2:33 AM [facility] RDW-CV 14.9(H) 11.2 - 14.8 % 09/05/2021 2:33 AM [facility] MPV 9.6 9.4 - 12.9 fL 09/05/2021 2:33 AM [facility] nRBC Absolute 0.00 0 10? 3 /uL 09/05/2021 2:33 AM [facility] nRBC Auto 0.0 0 /100 WBC 09/05/2021 2:33 AM [facility] Blood BLOOD SPECIMEN / Unknown Lab Venipuncture / Unknown 09/05/2021 1:22 AM CDT 09/05/2021 2:21 AM CDT Olegario Villagomez MD LAB - HEMATOLOGY OR DERABLES Performing Organization Address City/State/[facility] Co de Phone Number [facility] [address] [place] [address], [facility] [phone] * (ABNORMAL) BASIC METABOLIC PANEL (CALCIUM TOTAL) (09/05/2021 1:22 AM CDT) BUN 10 7 - 26 mg/dL 09/05/2021 2:54 AM [facility] Creatinine 0.70(L) 0.71 - 1.16 mg/dL 09/05/2021 2:54 AM [facility] Sodium 138 136 - 145 mmol/L 09/05/2021 2:54 AM [facility] Potassium 4.0 3.5 - 4.5 mmol/L 09/05/2021 2:54 AM [facility] Chloride 108(H) 98 - 107 mmol/L 09/05/2021 2:54 AM [facility] CO2 23 22 - 29 mmol/L 09/05/2021 2:54 AM [facility] Glucose 96 70 - 115 mg/dL 09/05/2021 2:54 AM [facility] Calcium 7.9(L) 8.4 - 10.2 mg/dL 09/05/2021 2:54 AM [facility] Anion Gap 11 8 - 18 09/05/2021 2:54 AM [facility] BUN/Creatinine Ratio 14 7 - 23 09/05/2021 2:54 AM CDT [facility] Osmolality Calculated 285 270 - 300 mOsm/kg 09/05/2021 2:54 AM CDT [facility] eGFR by CKD-EPI >90 >=90 mL/min/1.7 3 m2 09/05/2021 2:54 AM CDT [facility] Blood BLOOD SPECIMEN / Unknown Lab Venipuncture / Unknown 09/05/2021 1:22 AM CDT 09/05/2021 2:26 AM CDT Olegario Villagomez MD LAB - CHEMISTRY ORD ERABLES [address] [address], [facility] [phone] * (ABNORMAL) PHOSPHORUS BLOOD (09/04/2021 2:03 AM CDT) Phosphorus 2.7(L) 2.8 - 5.1 mg/dL 09/04/2021 3:56 AM CDT [facility] Blood BLOOD SPECIMEN / Unknown Lab Venipuncture / Unknown 09/04/2021 2:03 AM CDT 09/04/2021 3:26 AM CDT Olegario Villagomez MD LAB - CHEMISTRY ORD ERABLES Performing Organization Address City/[facility]/ZIP Co de Phone Number [address] [address], [facility] [phone] * MAGNESIUM BLOOD (09/04/2021 2:03 AM CDT) Magnesium 1.8 1.6 - 2.6 mg/dL 09/04/2021 3:56 AM CDT [facility] Blood BLOOD SPECIMEN / Unknown Lab Venipuncture / Unknown 09/04/2021 2:03 AM CDT 09/04/2021 3:26 AM CDT Olegario Villagomez MD LAB - CHEMISTRY ORD ERABLES [address] [address] [phone] * (ABNORMAL) CBC W/O DIFFERENTIAL (09/04/2021 2:03 AM T) WBC 5.1 3.5 - 10.5 10? 3 /uL 09/04/2021 3:34 AM [facility] RBC 3.83(L) 4.30 - 5.70 10? 6 /uL 09/04/2021 3:34 AM [facility] Hemoglobin 12.2 12.0 - 17.6 g/dL 09/04/2021 3:34 AM [facility] Hematocrit 36.3 35.2 - 51.7 % 09/04/2021 3:34 AM [facility] MCV 94.8 80.7 - 98.3 fL 09/04/2021 3:34 AM [facility] MCH 31.9 26.7 - 34.0 pg 09/04/2021 3:34 AM [facility] MCHC 33.6 30.8 - 35.9 g/dL 09/04/2021 3:34 AM [facility] Platelet Count 111(L) 150 - 400 10? 3 /uL 09/04/2021 3:34 AM [facility] RDW-SD 51.5(H) 36.0 - 50.0 fL 09/04/2021 3:34 AM [facility] RDW-CV 14.9(H) 11.2 - 14.8 % 09/04/2021 3:34 AM [facility] MPV 9.8 9.4 - 12.9 fL 09/04/2021 3:34 AM [facility] nRBC Absolute 0.00 0 10? 3 /uL 09/04/2021 3:34 AM [facility] nRBC Auto 0.0 0 /100 WBC 09/04/2021 3:34 AM [facility] Blood BLOOD SPECIMEN / Unknown Lab Venipuncture / Unknown 09/04/2021 2:03 AM CDT 09/04/2021 3:26 AM T Olegario Villagomez MD LAB - HEMATOLOGY OR DERABLES Performing Organization Address City/[facility]/ZIP Co de Phone Number [facility] [address] [place] [address], [facility] [phone] * (ABNORMAL) BASIC METABOLIC PANEL (CALCIUM TOTAL) (09/04/2021 2:03 AM CDT) BUN 12 7 - 26 mg/dL 09/04/2021 3:56 AM [facility] Creatinine 0.66(L) 0.71 - 1.16 mg/dL 09/04/2021 3:56 AM [facility] Sodium 142 136 - 145 mmol/L 09/04/2021 3:56 AM [facility] Potassium 3.9 3.5 - 4.5 mmol/L 09/04/2021 3:56 AM [facility] Chloride 110(H) 98 - 107 mmol/L 09/04/2021 3:56 AM [facility] CO2 25 22 - 29 mmol/L 09/04/2021 3:56 AM [facility] Glucose 104 70 - 115 mg/dL 09/04/2021 3:56 AM [facility] Calcium 8.2(L) 8.4 - 10.2 mg/dL 09/04/2021 3:56 AM [facility] Anion Gap 11 8 - 18 09/04/2021 3:56 AM [facility] BUN/Creatinine Ratio 18 7 - 23 09/04/2021 3:56 AM [facility] Osmolality Calculated 294 270 - 300 mOsm/kg 09/04/2021 3:56 AM [facility] eGFR by CKD-EPI >90 >=90 mL/min/1.7 3 m2 09/04/2021 3:56 AM [facility] Blood BLOOD SPECIMEN / Unknown Lab Venipuncture / Unknown 09/04/2021 2:03 AM CDT 09/04/2021 3:26 AM T Olegario Villagomez MD LAB - CHEMISTRY ORD ERABLES [facility] [address] [place] [address], [facility] [phone] * PHOSPHORUS BLOOD (09/03/2021 2:06 AM CDT) Pathologist [facility] Phosphorus 2.8 2.8 - 5.1 mg/dL 09/03/2021 4:05 AM CDT [facility] Blood BLOOD SPECIMEN / Unknown Lab Venipuncture / Unknown 09/03/2021 2:06 AM CDT 09/03/2021 3:35 AM CDT Olegario Villagomez MD LAB - CHEMISTRY ORD ERABLES [address] [address], [facility] [phone] * MAGNESIUM BLOOD (09/03/2021 2:06 AM CDT) Pathologist [facility] Magnesium 1.8 1.6 - 2.6 mg/dL 09/03/2021 4:05 AM CDT [facility] Blood BLOOD SPECIMEN / Unknown Lab Venipuncture / Unknown 09/03/2021 2:06 AM CDT 09/03/2021 3:35 AM CDT Olegario Villagomez MD LAB - CHEMISTRY ORD ERABLES [address] [address], [facility] [phone] * (ABNORMAL) CBC W/O DIFFERENTIAL (09/03/2021 2:06 AM CDT) Pathologist [facility] [place] WBC 6.4 3.5 - 10.5 10? 3 /uL 09/03/2021 3:59 AM CDT [facility] RBC 3.71(L) 4.30 - 5.70 10? 6 /uL 09/03/2021 3:59 AM CDT [facility] Hemoglobin 11.7(L) 12.0 - 17.6 g/dL 09/03/2021 3:59 AM CDT [facility] Hematocrit 35.0(L) 35.2 - 51.7 % 09/03/2021 3:59 AM [facility] MCV 94.3 80.7 - 98.3 fL 09/03/2021 3:59 AM [facility] MCH 31.5 26.7 - 34.0 pg 09/03/2021 3:59 AM [facility] MCHC 33.4 30.8 - 35.9 g/dL 09/03/2021 3:59 AM [facility] Platelet Count 109(L) 150 - 400 10? 3 /uL 09/03/2021 3:59 AM [facility] RDW-SD 52.4(H) 36.0 - 50.0 fL 09/03/2021 3:59 AM [facility] RDW-CV 15.2(H) 11.2 - 14.8 % 09/03/2021 3:59 AM [facility] MPV 10.6 9.4 - 12.9 fL 09/03/2021 3:59 AM [facility] nRBC Absolute 0.00 0 10? 3 /uL 09/03/2021 3:59 AM [facility] nRBC Auto 0.0 0 /100 WBC 09/03/2021 3:59 AM [facility] Blood BLOOD SPECIMEN / Unknown Lab Venipuncture / Unknown 09/03/2021 2:06 AM CDT 09/03/2021 3:35 AM CDT Olegario Villagomez MD LAB - HEMATOLOGY OR DERABLES Performing Organization Address [facility] Co de Phone Number [address] [address] [phone] * (ABNORMAL) BASIC METABOLIC PANEL (CALCIUM TOTAL) (09/03/2021 2:06 AM CDT) BUN 13 7 - 26 mg/dL 09/03/2021 4:05 AM [facility] Creatinine 0.75 0.71 - 1.16 mg/dL 09/03/2021 4:05 AM [facility] Sodium 143 136 - 145 mmol/L 09/03/2021 4:05 AM [facility] Potassium 3.8 3.5 - 4.5 mmol/L 09/03/2021 4:05 AM [facility] Chloride 113(H) 98 - 107 mmol/L 09/03/2021 4:05 AM [facility] CO2 23 22 - 29 mmol/L 09/03/2021 4:05 AM [facility] Glucose 94 70 - 115 mg/dL 09/03/2021 4:05 AM [facility] Calcium 7.9(L) 8.4 - 10.2 mg/dL 09/03/2021 4:05 AM [facility] Anion Gap 11 8 - 18 09/03/2021 4:05 AM [facility] BUN/Creatinine Ratio 17 7 - 23 09/03/2021 4:05 AM [facility] Osmolality Calculated 296 270 - 300 mOsm/kg 09/03/2021 4:05 AM [facility] eGFR by CKD-EPI >90 >=90 mL/min/1.7 3 m2 09/03/2021 4:05 AM [facility] Blood BLOOD SPECIMEN / Unknown Lab Venipuncture / Unknown 09/03/2021 2:06 AM CDT 09/03/2021 3:35 AM T Olegario Villagomez MD LAB - CHEMISTRY ORD ERABLES [facility] [address] [place] [address], [facility] [phone] * (ABNORMAL) PT-INR [facility] (09/03/2021 2:06 AM CDT) PT 17.0(H) 12.1 - 14.8 Seconds 09/03/2021 3:50 AM [facility] INR 1.4 See Comment 09/03/2021 3:50 AM [facility] Comment:The suggested therap eutic range for standard coumadin (warfarin) therapy is an INR of 2.0-3.0. For high-risk patients (Mechanical Mitral Valve Prosthesis, etc.), the suggested prophylactic therapeutic range is an INR of 2.5-3.5. Blood BLOOD SPECIMEN / Unknown Lab Venipuncture / Unknown 09/03/2021 2:06 AM CDT 09/03/2021 3:40 AM CDT Gabriele Riley MD LAB - COAGULATION OR DERABLES Performing Organization Address [facility] Co de Phone Number [address] [address], [facility] [phone] * (ABNORMAL) PT-INR [facility] (09/01/2021 11:13 PM CDT) PT 17.4(H) 12.1 - 14.8 Seconds 09/01/2021 11:32 PM CDT [facility] LABORATORY [facility] INR 1.4 See Comment 09/01/2021 11:32 PM CDT [facility] Comment:The suggested therap eutic range for standard coumadin (warfarin) therapy is an INR of 2.0-3.0. For high-risk patients (Mechanical Mitral Valve Prosthesis, etc.), the suggested prophylactic therapeutic range is an INR of 2.5-3.5. Blood BLOOD SPECIMEN / Unknown Venipuncture / Unknown 09/01/2021 11:13 PM CDT 09/01/2021 11:22 PM CDT Gabriele Riley MD LAB - COAGULATION OR DERABLES Performing Organization Address [facility] Co de Phone Number [address] [address], [place] [phone] * PHOSPHORUS BLOOD (09/01/2021 11:13 PM CDT) Phosphorus 4.0 2.8 - 5.1 mg/dL 09/01/2021 11:51 PM CDT [facility] Blood BLOOD SPECIMEN / Unknown Venipuncture / Unknown 09/01/2021 11:13 PM CDT 09/01/2021 11:17 PM CDT Gabriele Riley MD LAB - CHEMISTRY MIGUEL GOLD Performing Organization Address City/[facility]/ZIP Co de Phone Number [address] [address], [facility] [phone] * MAGNESIUM BLOOD (09/01/2021 11:13 PM CDT) Pathologist [facility] [place] Magnesium 1.8 1.6 - 2.6 mg/dL 09/01/2021 11:51 PM [facility] Blood BLOOD SPECIMEN / Unknown Venipuncture / Unknown 09/01/2021 11:13 PM CDT 09/01/2021 11:17 PM CDT Gabriele Riley MD LAB - CHEMISTRY MIGUEL GOLD [facility] Organization Address City/State/ZIP Co de Phone Number [facility] [address] [place] [address], [facility] [phone] * (ABNORMAL) CBC W/O DIFFERENTIAL (09/01/2021 11:13 PM CDT) Pathologist [facility] [place] WBC 7.8 3.5 - 10.5 10? 3 /uL 09/01/2021 11:25 PM [facility] RBC 3.99(L) 4.30 - 5.70 10? 6 /uL 09/01/2021 11:25 PM [facility] Hemoglobin 12.6 12.0 - 17.6 g/dL 09/01/2021 11:25 PM [facility] Hematocrit 36.3 35.2 - 51.7 % 09/01/2021 11:25 PM [facility] MCV 91.0 80.7 - 98.3 fL 09/01/2021 11:25 PM [facility] MCH 31.6 26.7 - 34.0 pg 09/01/2021 11:25 PM [facility] MCHC 34.7 30.8 - 35.9 g/dL 09/01/2021 11:25 PM [facility] Platelet Count 114(L) 150 - 400 10? 3 /uL 09/01/2021 11:25 PM [facility] RDW-SD 50.3(H) 36.0 - 50.0 fL 09/01/2021 11:25 PM [facility] RDW-CV 14.9(H) 11.2 - 14.8 % 09/01/2021 11:25 PM [facility] MPV 10.6 9.4 - 12.9 fL 09/01/2021 11:25 PM [facility] nRBC Absolute 0.00 0 10? 3 /uL 09/01/2021 11:25 PM [facility] nRBC Auto 0.0 0 /100 WBC 09/01/2021 11:25 PM [facility] Blood BLOOD SPECIMEN / Unknown Venipuncture / Unknown 09/01/2021 11:13 PM CDT 09/01/2021 11:16 PM CDT Gabriele Riley MD LAB - HEMATOLOGY ORD ERABLES [facility] [address] [place] [address], [facility] [phone] * (ABNORMAL) BASIC METABOLIC PANEL (CALCIUM TOTAL) (09/01/2021 11:13 PM CDT) BUN 15 7 - 26 mg/dL 09/01/2021 11:51 PM [facility] Creatinine 0.79 0.71 - 1.16 mg/dL 09/01/2021 11:51 PM [facility] Sodium 142 136 - 145 mmol/L 09/01/2021 11:51 PM [facility] Potassium 3.8 3.5 - 4.5 mmol/L 09/01/2021 11:51 PM [facility] Chloride 111(H) 98 - 107 mmol/L 09/01/2021 11:51 PM [facility] CO2 23 22 - 29 mmol/L 09/01/2021 11:51 PM [facility] Glucose 102 70 - 115 mg/dL 09/01/2021 11:51 PM [facility] Calcium 7.6(L) 8.4 - 10.2 mg/dL 09/01/2021 11:51 PM [facility] Anion Gap 12 8 - 18 09/01/2021 11:51 PM [facility] BUN/Creatinine Ratio 19 7 - 23 09/01/2021 11:51 PM CDT [facility] Osmolality Calculated 295 270 - 300 mOsm/kg 09/01/2021 11:51 PM CDT [facility] eGFR by CKD-EPI >90 >=90 mL/min/1.7 3 m2 09/01/2021 11:51 PM CDT [facility] Blood BLOOD SPECIMEN / Unknown Venipuncture / Unknown 09/01/2021 11:13 PM CDT 09/01/2021 11:17 PM CDT Gabriele Riley MD LAB - CHEMISTRY MIGUEL GOLD [facility] [address] [place] [address], [facility] [phone] * EKG 12-LEAD (09/01/2021 2:41 PM CDT) Ventricular Rate 67 BPM [facility] MUSE Atrial Rate 67 BPM [facility] MUSE P-R Interval 150 ms [facility] MUSE QRS Duration ms 88 ms [facility] MUSE Q-T Interval ms 456 ms [facility] MUSE QTC Calculation (Bezet) 481 ms [facility] MUSE Calculated P [place] 52 degrees [facility] MUSE Calculated R [place] 41 degrees [facility] MUSE Calculated T [place] 49 degrees [facility] MUSE Interpretation EKG NORMAL SINUS RHYTHM PROLONGED QT ABNORMAL ECG WHEN COMPARED WITH ECG OF 30-AUG-2021 10:04, NO SIGNIFICANT CHANGE WAS FOUND Confirmed by Rod Friedman ([id number]) on 09/06/2021 6:18:05 PM [facility] MUSE 09/01/2021 2:41 PM CDT 09/06/2021 6:18 PM CDT Olegario Villagomez MD ECG ORDERABLES Performing Organization Address City/[facility]/ZIP Co de Phone Number [facility] MUSE * AMMONIA (09/01/2021 12:06 AM CDT) Ammonia 24 <=72 umol/L 09/01/2021 12:23 AM CDT [facility] Blood BLOOD SPECIMEN / Unknown Venipuncture / Unknown 09/01/2021 12:06 AM CDT 09/01/2021 12:12 AM CDT Olegario Villagomez MD LAB - CHEMISTRY ORD TIPBLES Performing Organization Address [facility] Co de Phone Number [address] [address], [place] [phone] * (ABNORMAL) PT-INR [facility] (09/01/2021 12:01 AM CDT) PT 17.4(H) 12.1 - 14.8 Seconds 09/01/2021 12:25 AM CDT [facility] INR 1.4 See Comment 09/01/2021 12:25 AM CDT [facility] Comment:The suggested therap eutic range for standard coumadin (warfarin) therapy is an INR of 2.0-3.0. For high-risk patients (Mechanical Mitral Valve Prosthesis, etc.), the suggested prophylactic therapeutic range is an INR of 2.5-3.5. Blood BLOOD SPECIMEN / Unknown Venipuncture / Unknown 09/01/2021 12:01 AM CDT 09/01/2021 12:06 AM CDT Gabriele Riley MD LAB - COAGULATION OR DERABLES Performing Organization Address [facility] Co de Phone Number [address] [address], [place] [phone] * PHOSPHORUS BLOOD (08/31/2021 11:58 PM CDT) Pathologist [facility] [place] Phosphorus 3.0 2.8 - 5.1 mg/dL 09/01/2021 12:32 AM CDT [facility] Blood BLOOD SPECIMEN / Unknown Venipuncture / Unknown 08/31/2021 11:58 PM CDT 09/01/2021 12:03 AM CDT Gabriele Riley MD LAB - CHEMISTRY ORDE ALLA Performing Organization Address City/[facility]/ZIP Co de Phone Number [address] [address], [place] [phone] * MAGNESIUM BLOOD (08/31/2021 11:58 PM CDT) Magnesium 1.7 1.6 - 2.6 mg/dL 09/01/2021 12:32 AM [facility] Blood BLOOD SPECIMEN / Unknown Venipuncture / Unknown 08/31/2021 11:58 PM CDT 09/01/2021 12:03 AM CDT Gabriele Riley MD LAB - CHEMISTRY MIGUEL GOLD [facility] [address] [place] [address], [facility] [phone] * (ABNORMAL) CBC W/O DIFFERENTIAL (08/31/2021 11:58 PM CDT) WBC 7.7 3.5 - 10.5 10? 3 /uL 09/01/2021 12:34 AM [facility] Comment:All CBC parameters h ave been checked. RBC 4.54 4.30 - 5.70 10? 6 /uL 09/01/2021 12:34 AM [facility] Hemoglobin 14.2 12.0 - 17.6 g/dL 09/01/2021 12:34 AM [facility] Hematocrit 40.6 35.2 - 51.7 % 09/01/2021 12:34 AM [facility] MCV 89.4 80.7 - 98.3 fL 09/01/2021 12:34 AM [facility] MCH 31.3 26.7 - 34.0 pg 09/01/2021 12:34 AM [facility] MCHC 35.0 30.8 - 35.9 g/dL 09/01/2021 12:34 AM [facility] Platelet Count 88(L) 150 - 400 10? 3 /uL 09/01/2021 12:34 AM [facility] RDW-SD 48.2 36.0 - 50.0 fL 09/01/2021 12:34 AM [facility] RDW-CV 14.8 11.2 - 14.8 % 09/01/2021 12:34 AM [facility] MPV 10.4 9.4 - 12.9 fL 09/01/2021 12:34 AM [facility] nRBC Absolute 0.00 0 10? 3 /uL 09/01/2021 12:34 AM [facility] nRBC Auto 0.0 0 /100 WBC 09/01/2021 12:34 AM [facility] Blood BLOOD SPECIMEN / Unknown Venipuncture / Unknown 08/31/2021 11:58 PM CDT 09/01/2021 12:06 AM T Gabriele Riley MD LAB - HEMATOLOGY ORD ERABLES [facility] [address] [place] [address], [facility] [phone] * (ABNORMAL) BASIC METABOLIC PANEL (CALCIUM TOTAL) (08/31/2021 11:58 PM T) BUN 12 7 - 26 mg/dL 09/01/2021 12:32 AM [facility] Creatinine 0.66(L) 0.71 - 1.16 mg/dL 09/01/2021 12:32 AM [facility] Sodium 143 136 - 145 mmol/L 09/01/2021 12:32 AM [facility] Potassium 3.9 3.5 - 4.5 mmol/L 09/01/2021 12:32 AM [facility] Chloride 110(H) 98 - 107 mmol/L 09/01/2021 12:32 AM [facility] CO2 22 22 - 29 mmol/L 09/01/2021 12:32 AM [facility] Glucose 123(H) 70 - 115 mg/dL 09/01/2021 12:32 AM [facility] Calcium 8.2(L) 8.4 - 10.2 mg/dL 09/01/2021 12:32 AM [facility] Anion Gap 15 8 - 18 09/01/2021 12:32 AM [facility] BUN/Creatinine Ratio 18 7 - 23 09/01/2021 12:32 AM [facility] Osmolality Calculated 297 270 - 300 mOsm/kg 09/01/2021 12:32 AM CDT [facility] eGFR by CKD-EPI >90 >=90 mL/min/1.7 3 m2 09/01/2021 12:32 AM CDT [facility] Blood BLOOD SPECIMEN / Unknown Venipuncture / Unknown 08/31/2021 11:58 PM CDT 09/01/2021 12:03 AM CDT Gabriele Riley MD LAB - CHEMISTRY MIGUEL GOLD [facility] [address] [place] [address], [facility] [phone] * XR ABDOMEN KUB PORTABLE (08/31/2021 9:07 [...] by Jose R Bess M.D. (vice president of software development). Dr. PRABHJOT Londono MD have personally reviewed [...] by Jose R Bess M.D. (vice president of software development). Dr. PRABHJOT Londono MD have personally reviewed and interpreted this examination/study. This report was electronically signed by PRABHJOT HERRERA MD on 09/01/2021 1:17 PM . Olegario Villagomez MD DIAGNOSTIC IMAGING ORDERABLES * (ABNORMAL) PHOSPHORUS BLOOD (08/31/2021 12:32 AM CDT) Pathologist [facility] [place] Phosphorus 2.4(L) 2.8 - 5.1 mg/dL 08/31/2021 1:05 AM CDT [facility] Blood BLOOD SPECIMEN / Unknown Venipuncture / Unknown 08/31/2021 12:32 AM CDT 08/31/2021 12:35 AM CDT Gabriele Riley MD LAB - CHEMISTRY MIGUEL GOLD Performing Organization Address City/[facility]/ZIP Co de Phone Number [address] [address], [facility] [phone] * MAGNESIUM BLOOD (08/31/2021 12:32 AM CDT) Pathologist [facility] Magnesium 1.6 1.6 - 2.6 mg/dL 08/31/2021 1:05 AM T [facility] Blood BLOOD SPECIMEN / Unknown Venipuncture / Unknown 08/31/2021 12:32 AM CDT 08/31/2021 12:35 AM CDT Gabriele Riley MD LAB - CHEMISTRY MIGUEL GOLD [address] [address], [facility] [phone] * (ABNORMAL) CBC W/O DIFFERENTIAL (08/31/2021 12:32 AM CDT) Pathologist [facility] WBC 7.1 3.5 - 10.5 10? 3 /uL 08/31/2021 1:07 AM CDT [facility] RBC 4.10(L) 4.30 - 5.70 10? 6 /uL 08/31/2021 1:07 AM CDT [facility] Hemoglobin 12.9 12.0 - 17.6 g/dL 08/31/2021 1:07 AM CDT [facility] Hematocrit 37.4 35.2 - 51.7 % 08/31/2021 1:07 AM [facility] MCV 91.2 80.7 - 98.3 fL 08/31/2021 1:07 AM [facility] MCH 31.5 26.7 - 34.0 pg 08/31/2021 1:07 AM [facility] MCHC 34.5 30.8 - 35.9 g/dL 08/31/2021 1:07 AM [facility] Platelet Count 89(L) 150 - 400 10? 3 /uL 08/31/2021 1:07 AM [facility] RDW-SD 49.4 36.0 - 50.0 fL 08/31/2021 1:07 AM [facility] RDW-CV 14.7 11.2 - 14.8 % 08/31/2021 1:07 AM [facility] MPV 10.8 9.4 - 12.9 fL 08/31/2021 1:07 AM [facility] nRBC Absolute 0.00 0 10? 3 /uL 08/31/2021 1:07 AM [facility] nRBC Auto 0.0 0 /100 WBC 08/31/2021 1:07 AM [facility] Blood BLOOD SPECIMEN / Unknown Venipuncture / Unknown 08/31/2021 12:32 AM CDT 08/31/2021 12:36 AM CDT Gabriele Riley MD LAB - HEMATOLOGY ORD ERABLES Performing Organization Address City/State/[facility] Co de Phone Number [facility] [address] [place] [phone], [facility] [phone] * (ABNORMAL) BASIC METABOLIC PANEL (CALCIUM TOTAL) (08/31/2021 12:32 AM CDT) BUN 10 7 - 26 mg/dL 08/31/2021 1:05 AM [facility] Creatinine 0.58(L) 0.71 - 1.16 mg/dL 08/31/2021 1:05 AM [facility] Sodium 141 136 - 145 mmol/L 08/31/2021 1:05 AM [facility] Potassium 3.7 3.5 - 4.5 mmol/L 08/31/2021 1:05 AM [facility] Chloride 112(H) 98 - 107 mmol/L 08/31/2021 1:05 AM [facility] CO2 21(L) 22 - 29 mmol/L 08/31/2021 1:05 AM [facility] Glucose 131(H) 70 - 115 mg/dL 08/31/2021 1:05 AM [facility] Calcium 8.0(L) 8.4 - 10.2 mg/dL 08/31/2021 1:05 AM [facility] Anion Gap 12 8 - 18 08/31/2021 1:05 AM [facility] BUN/Creatinine Ratio 17 7 - 23 08/31/2021 1:05 AM [facility] Osmolality Calculated 293 270 - 300 mOsm/kg 08/31/2021 1:05 AM [facility] eGFR by CKD-EPI >90 >=90 mL/min/1.7 3 m2 08/31/2021 1:05 AM [facility] Blood BLOOD SPECIMEN / Unknown Venipuncture / Unknown 08/31/2021 12:32 AM CDT 08/31/2021 12:35 AM CDT Gabriele Riley MD LAB - CHEMISTRY ORDE [facility] Organization Address City/State/ZIP Co de Phone Number [facility] [address] [place] [address], [facility] [phone] * (ABNORMAL) PT-INR [facility] (08/31/2021 12:31 AM CDT) PT 17.8(H) 12.1 - 14.8 Seconds 08/31/2021 12:58 AM [facility] INR 1.5 See Comment 08/31/2021 12:58 AM [facility] Comment:The suggested therap eutic range for standard coumadin (warfarin) therapy is an INR of 2.0-3.0. For high-risk patients (Mechanical Mitral Valve Prosthesis, etc.), the suggested prophylactic therapeutic range is an INR of 2.5-3.5. Blood BLOOD SPECIMEN / Unknown Venipuncture / Unknown 08/31/2021 12:31 AM CDT 08/31/2021 12:34 AM CDT Gabriele Riley MD LAB - COAGULATION OR DERABLES [place] [id number] [place] [address], [facility] [phone] * XR ABDOMEN KUB PORTABLE (08/30/2021 9:01 PM CDT) Anatomical Region Laterality Modality Abdomen Radiographic Lynette ging 08/30/2021 10:0 7 PM CDT Impressions 08/31/2021 11:16 AM CDT FINDINGS/IMPRESSION: An enteric tube tip superimposes the stomach. Patchy lung opacities are reidentified indicating patchy atelectasis. Gaseous distention of the bowel loops noted. Dictated by Meena Wall MD (vice president of software development). Dr. REMEDIOS Londono MD, FRRISA have personally [...] Dictated by Meena Wall MD (vice president of software development). Dr. REMEDIOS Londono MD, FRCR have personally [...] by Jose R Bess M.D. (vice president of software development). Dr. REMEDIOS Londono MD, FRRSIA have personally reviewed and interpreted this examination/study. [...] by Jose R Bess M.D. (vice president of software development). Dr. REMEDIOS Londono MD, FRRISA have personally reviewedand interpreted this examination/study. This report was electronically signed by REMEDIOS MARQUEZ MD, RISA on 08/30/2021 2:22 PM . Olegario Villagomez MD DIAGNOSTIC IMAGING ORDERABLES * EKG 12-LEAD (08/30/2021 10:04 AM CDT) Ventricular Rate 65 BPM [facility] MUSE Atrial Rate 65 BPM [facility] MUSE P-R Interval 148 ms [facility] MUSE QRS Duration ms 82 ms [facility] MUSE Q-T Interval ms 400 ms [facility] MUSE QTC Calculation (Bezet) 416 ms [facility] MUSE Calculated P [place] 56 degrees [facility] MUSE Calculated R [place] 68 degrees [facility] MUSE Calculated T [place] 66 degrees [facility] MUSE Interpretation EKG NORMAL SINUS RHYTHM NORMAL ECG WHEN COMPARED WITH ECG OF 27-AUG-2021 13:24, NO SIGNIFICANT CHANGE WAS FOUND Confirmed by Rod Friedman ([id number]) on 09/02/2021 3:21:17 PM [facility] MUSE 08/30/2021 10:0 4 AM CDT 09/02/2021 3:21 PM CDT Olegario Villagomez MD ECG ORDERABLES Performing Organization Address [facility] de Phone Number [facility] * (ABNORMAL) PT-INR [facility] (08/29/2021 11:50 PM CDT) [facility] PT 18.8(H) 12.1 - 14.8 Seconds 08/30/2021 12:21 AM CDT [facility] INR 1.6 See Comment 08/30/2021 12:21 AM CDT [facility] Comment:The suggested therap eutic range for standard coumadin (warfarin) therapy is an INR of 2.0-3.0. For high-risk patients (Mechanical Mitral Valve Prosthesis, etc.), the suggested prophylactic therapeutic range is an INR of 2.5-3.5. Blood BLOOD SPECIMEN / Unknown Venipuncture / Unknown 08/29/2021 11:50 PM CDT 08/29/2021 11:57 PM CDT Gabriele Riley MD LAB - COAGULATION OR DERABLES Performing Organization Address City/[facility]/ZIP Co de Phone Number [facility] [address] [place] [address], [place] [phone] * (ABNORMAL) PHOSPHORUS BLOOD (08/29/2021 11:50 PM CDT) Phosphorus 1.9(L) 2.8 - 5.1 mg/dL 08/30/2021 12:24 AM T [facility] Blood BLOOD SPECIMEN / Unknown Venipuncture / Unknown 08/29/2021 11:50 PM CDT 08/29/2021 11:58 PM CDT Gabriele Riley MD LAB - CHEMISTRY MIGUEL GOLD [address] [address], [facility] [phone] * MAGNESIUM BLOOD (08/29/2021 11:50 PM CDT) Magnesium 1.8 1.6 - 2.6 mg/dL 08/30/2021 12:24 AM [facility] Blood BLOOD SPECIMEN / Unknown Venipuncture / Unknown 08/29/2021 11:50 PM CDT 08/29/2021 11:58 PM CDT Gabriele Riley MD LAB - CHEMISTRY MIGUEL GOLD Performing Organization Address City/[facility]/ZIP Co de Phone Number [address] [address], [facility] [phone] * (ABNORMAL) CBC W/O DIFFERENTIAL (08/29/2021 11:50 PM CDT) WBC 7.4 3.5 - 10.5 10? 3 /uL 08/30/2021 12:09 AM [facility] RBC 3.95(L) 4.30 - 5.70 10? 6 /uL 08/30/2021 12:09 AM [facility] Hemoglobin 12.4 12.0 - 17.6 g/dL 08/30/2021 12:09 AM [facility] Hematocrit 35.9 35.2 - 51.7 % 08/30/2021 12:09 AM [facility] MCV 90.9 80.7 - 98.3 fL 08/30/2021 12:09 AM [facility] MCH 31.4 26.7 - 34.0 pg 08/30/2021 12:09 AM [facility] MCHC 34.5 30.8 - 35.9 g/dL 08/30/2021 12:09 AM [facility] Platelet Count 88(L) 150 - 400 10? 3 /uL 08/30/2021 12:09 AM [facility] RDW-SD 51.4(H) 36.0 - 50.0 fL 08/30/2021 12:09 AM [facility] RDW-CV 15.4(H) 11.2 - 14.8 % 08/30/2021 12:09 AM [facility] MPV 11.0 9.4 - 12.9 fL 08/30/2021 12:09 AM [facility] nRBC Absolute 0.00 0 10? 3 /uL 08/30/2021 12:09 AM [facility] nRBC Auto 0.0 0 /100 WBC 08/30/2021 12:09 AM [facility] Blood BLOOD SPECIMEN / Unknown Venipuncture / Unknown 08/29/2021 11:50 PM CDT 08/29/2021 11:58 PM CDT Gabriele Riley MD LAB - HEMATOLOGY ORD ERABLES [facility] [address] [place] [phone], [facility] [phone] * (ABNORMAL) BASIC METABOLIC PANEL (CALCIUM TOTAL) (08/29/2021 11:50 PM CDT) BUN 15 7 - 26 mg/dL 08/30/2021 12:24 AM [facility] Creatinine 0.69(L) 0.71 - 1.16 mg/dL 08/30/2021 12:24 AM [facility] Sodium 140 136 - 145 mmol/L 08/30/2021 12:24 AM [facility] Potassium 3.8 3.5 - 4.5 mmol/L 08/30/2021 12:24 AM [facility] Chloride 112(H) 98 - 107 mmol/L 08/30/2021 12:24 AM [facility] CO2 22 22 - 29 mmol/L 08/30/2021 12:24 AM [facility] Glucose 137(H) 70 - 115 mg/dL 08/30/2021 12:24 AM [facility] Calcium 7.9(L) 8.4 - 10.2 mg/dL 08/30/2021 12:24 AM [facility] Anion Gap 10 8 - 18 08/30/2021 12:24 AM [facility] BUN/Creatinine Ratio 22 7 - 23 08/30/2021 12:24 AM [facility] Osmolality Calculated 293 270 - 300 mOsm/kg 08/30/2021 12:24 AM [facility] eGFR by CKD-EPI >90 >=90 mL/min/1.7 3 m2 08/30/2021 12:24 AM [facility] Blood BLOOD SPECIMEN / Unknown Venipuncture / Unknown 08/29/2021 11:50 PM CDT 08/29/2021 11:58 PM CDT Gabriele Riley MD LAB - CHEMISTRY MIGUEL [facility] Organization Address City/State/ZIP Co de Phone Number [facility] [address] [place] [address], [facility] [phone] * (ABNORMAL) PT-INR [facility] (08/29/2021 12:26 AM CDT) PT 18.7(H) 12.1 - 14.8 Seconds 08/29/2021 12:49 AM [facility] INR 1.6 See Comment 08/29/2021 12:49 AM [facility] Comment:The suggested therap eutic range for standard coumadin (warfarin) therapy is an INR of 2.0-3.0. For high-risk patients (Mechanical Mitral Valve Prosthesis, etc.), the suggested prophylactic therapeutic range is an INR of 2.5-3.5. Blood BLOOD SPECIMEN / Unknown Venipuncture / Unknown 08/29/2021 12:26 AM CDT 08/29/2021 12:40 AM CDT Gabriele Riley MD LAB - COAGULATION OR DERABLES Performing Organization Address [facility]/ZIP Co de Phone Number [address] [address], [facility] [phone] * (ABNORMAL) PHOSPHORUS BLOOD (08/29/2021 12:26 AM CDT) Phosphorus 2.1(L) 2.8 - 5.1 mg/dL 08/29/2021 12:59 AM CDT [facility] Blood BLOOD SPECIMEN / Unknown Venipuncture / Unknown 08/29/2021 12:26 AM CDT 08/29/2021 12:32 AM CDT Gabriele Riley MD LAB - CHEMISTRY MIGUEL GOLD [address] [address], [facility] [phone] * MAGNESIUM BLOOD (08/29/2021 12:26 AM CDT) Pathologist [facility] Magnesium 1.8 1.6 - 2.6 mg/dL 08/29/2021 12:59 AM CDT [facility] Blood BLOOD SPECIMEN / Unknown Venipuncture / Unknown 08/29/2021 12:26 AM CDT 08/29/2021 12:32 AM CDT Gabriele Riley MD LAB - CHEMISTRY MIGUEL GOLD [address] [address], [facility] [phone] * (ABNORMAL) CBC W/O DIFFERENTIAL (08/29/2021 12:26 AM CDT) WBC 7.5 3.5 - 10.5 10? 3 /uL 08/29/2021 12:37 AM CDT [facility] RBC 4.16(L) 4.30 - 5.70 10? 6 /uL 08/29/2021 12:37 AM CDT [facility] Hemoglobin 13.2 12.0 - 17.6 g/dL 08/29/2021 12:37 AM [facility] Hematocrit 38.2 35.2 - 51.7 % 08/29/2021 12:37 AM [facility] MCV 91.8 80.7 - 98.3 fL 08/29/2021 12:37 AM [facility] MCH 31.7 26.7 - 34.0 pg 08/29/2021 12:37 AM [facility] MCHC 34.6 30.8 - 35.9 g/dL 08/29/2021 12:37 AM [facility] Platelet Count 76(L) 150 - 400 10? 3 /uL 08/29/2021 12:37 AM [facility] RDW-SD 50.7(H) 36.0 - 50.0 fL 08/29/2021 12:37 AM [facility] RDW-CV 15.0(H) 11.2 - 14.8 % 08/29/2021 12:37 AM [facility] MPV 11.1 9.4 - 12.9 fL 08/29/2021 12:37 AM [facility] nRBC Absolute 0.00 0 10? 3 /uL 08/29/2021 12:37 AM [facility] nRBC Auto 0.0 0 /100 WBC 08/29/2021 12:37 AM [facility] Blood BLOOD SPECIMEN / Unknown Venipuncture / Unknown 08/29/2021 12:26 AM CDT 08/29/2021 12:32 AM T Gabriele Riley MD LAB - HEMATOLOGY ORD ERABLES [facility] [address] [place] [address], [facility] [phone] * (ABNORMAL) BASIC METABOLIC PANEL (CALCIUM TOTAL) (08/29/2021 12:26 AM CDT) BUN 17 7 - 26 mg/dL 08/29/2021 12:59 AM [facility] Creatinine 0.70(L) 0.71 - 1.16 mg/dL 08/29/2021 12:59 AM [facility] Sodium 141 136 - 145 mmol/L 08/29/2021 12:59 AM [facility] Potassium 4.1 3.5 - 4.5 mmol/L 08/29/2021 12:59 AM [facility] Chloride 111(H) 98 - 107 mmol/L 08/29/2021 12:59 AM [facility] CO2 23 22 - 29 mmol/L 08/29/2021 12:59 AM [facility] Glucose 125(H) 70 - 115 mg/dL 08/29/2021 12:59 AM [facility] Calcium 7.9(L) 8.4 - 10.2 mg/dL 08/29/2021 12:59 AM [facility] Anion Gap 11 8 - 18 08/29/2021 12:59 AM [facility] BUN/Creatinine Ratio 24(H) 7 - 23 08/29/2021 12:59 AM [facility] Osmolality Calculated 295 270 - 300 mOsm/kg 08/29/2021 12:59 AM [facility] eGFR by CKD-EPI >90 >=90 mL/min/1.7 3 m2 08/29/2021 12:59 AM [facility] Blood BLOOD SPECIMEN / Unknown Venipuncture / Unknown 08/29/2021 12:26 AM CDT 08/29/2021 12:32 AM T Gabriele Riley MD LAB - CHEMISTRY MIGUEL [facility] Organization Address City/State/[facility] Co de Phone Number [facility] [address] [place] [address], [facility] [phone] * (ABNORMAL) PT-INR [facility] (08/28/2021 12:13 AM [facility]) PT 19.7(H) 12.1 - 14.8 Seconds 08/28/2021 12:36 AM [facility] INR 1.7 See Comment 08/28/2021 12:36 AM [facility] Comment:The suggested therap eutic range for standard coumadin (warfarin) therapy is an INR of 2.0-3.0. For high-risk patients (Mechanical Mitral Valve Prosthesis, etc.), the suggested prophylactic therapeutic range is an INR of 2.5-3.5. Blood BLOOD SPECIMEN / Unknown Venipuncture / Unknown 08/28/2021 12:13 AM [facility] 08/28/2021 12:17 AM [facility] Gabriele Riley MD LAB - COAGULATION OR DERABLES Performing Organization Address [facility]/ZIP Co de Phone Number [address] [phone], [facility] [phone] * (ABNORMAL) PHOSPHORUS BLOOD (08/28/2021 12:13 AM [facility]) Phosphorus 1.9(L) 2.8 - 5.1 mg/dL 08/28/2021 12:44 AM [facility] Blood BLOOD SPECIMEN / Unknown Venipuncture / Unknown 08/28/2021 12:13 AM [facility] 08/28/2021 12:17 AM [facility] Gabriele Riley MD LAB - CHEMISTRY MIGUEL GOLD Performing Organization Address [facility] Co de Phone Number [address] [phone], [facility] [phone] * MAGNESIUM BLOOD (08/28/2021 12:13 AM [facility]) Magnesium 1.9 1.6 - 2.6 mg/dL 08/28/2021 12:44 AM [facility] Blood BLOOD SPECIMEN / Unknown Venipuncture / Unknown 08/28/2021 12:13 AM [facility] 08/28/2021 12:17 AM [facility] Gabriele Riley MD LAB - CHEMISTRY MIGUEL GOLD Performing Organization Address [facility] Co de Phone Number [address] [phone], [facility] [phone] * (ABNORMAL) CBC W/O DIFFERENTIAL (08/28/2021 12:13 AM [facility]) WBC 10.4 3.5 - 10.5 10? 3 /uL 08/28/2021 12:57 AM [facility] RBC 4.57 4.30 - 5.70 10? 6 /uL 08/28/2021 12:57 AM [facility] Hemoglobin 14.3 12.0 - 17.6 g/dL 08/28/2021 12:57 AM [facility] Hematocrit 42.1 35.2 - 51.7 % 08/28/2021 12:57 AM [facility] MCV 92.1 80.7 - 98.3 fL 08/28/2021 12:57 AM [facility] MCH 31.3 26.7 - 34.0 pg 08/28/2021 12:57 AM [facility] MCHC 34.0 30.8 - 35.9 g/dL 08/28/2021 12:57 AM [facility] Platelet Count 75(L) 150 - 400 10? 3 /uL 08/28/2021 12:57 AM [facility] RDW-SD 50.4(H) 36.0 - 50.0 fL 08/28/2021 12:57 AM [facility] RDW-CV 14.9(H) 11.2 - 14.8 % 08/28/2021 12:57 AM [facility] MPV 10.7 9.4 - 12.9 fL 08/28/2021 12:57 AM [facility] nRBC Absolute 0.00 0 10? 3 /uL 08/28/2021 12:57 AM [facility] nRBC Auto 0.0 0 /100 WBC 08/28/2021 12:57 AM [facility] Blood BLOOD SPECIMEN / Unknown Venipuncture / Unknown 08/28/2021 12:13 AM [facility] 08/28/2021 12:17 AM [facility] Gabriele Riley MD LAB - HEMATOLOGY ORD ERABLES [facility] [address] [place] [address], [facility] [phone] * (ABNORMAL) BASIC METABOLIC PANEL (CALCIUM TOTAL) (08/28/2021 12:13 AM [facility]) BUN 17 7 - 26 mg/dL 08/28/2021 12:44 AM [facility] Creatinine 0.83 0.71 - 1.16 mg/dL 08/28/2021 12:44 AM [facility] Sodium 143 136 - 145 mmol/L 08/28/2021 12:44 AM [facility] Potassium 3.9 3.5 - 4.5 mmol/L 08/28/2021 12:44 AM [facility] Chloride 112(H) 98 - 107 mmol/L 08/28/2021 12:44 AM [facility] CO2 23 22 - 29 mmol/L 08/28/2021 12:44 AM [facility] Glucose 141(H) 70 - 115 mg/dL 08/28/2021 12:44 AM [facility] Calcium 8.2(L) 8.4 - 10.2 mg/dL 08/28/2021 12:44 AM [facility] Anion Gap 12 8 - 18 08/28/2021 12:44 AM [facility] BUN/Creatinine Ratio 20 7 - 23 08/28/2021 12:44 AM [facility] Osmolality Calculated 300 270 - 300 mOsm/kg 08/28/2021 12:44 AM [facility] eGFR by CKD-EPI >90 >=90 mL/min/1.7 3 m2 08/28/2021 12:44 AM [facility] Blood BLOOD SPECIMEN / Unknown Venipuncture / Unknown 08/28/2021 12:13 AM [facility] 08/28/2021 12:17 AM [facility] Gabriele Riley MD LAB - CHEMISTRY MIGUEL GOLD [facility] [address] [place] [phone], [facility] [phone] * CULTURE BLOOD (08/27/2021 5:05 PM [facility]) Culture No growth day 5 MANJIT 09/01/2021 9:00 PM CDT [facility] Blood PERIPHERAL BLOOD / Unknown Venipuncture / Unknown 08/27/2021 5:05 PM [facility] 08/27/2021 5:15 PM [facility] Olegario Villagomez MD LAB - MICROBIOLOGY ORDERABLES [facility] MICROBIOLOG[facility] [address] [place] [address], [facility] [phone] * CULTURE BLOOD (08/27/2021 5:05 PM [facility]) Culture No growth day 5 MANJIT 09/01/2021 9:00 PM CDT [facility]CRO[facility] Blood PERIPHERAL BLOOD / Unknown Venipuncture / Unknown 08/27/2021 5:05 PM [facility] 08/27/2021 5:15 PM [facility] Olegario Villagomez MD LAB - MICROBIOLOGY ORDERABLES Performing Organization Address [facility]/ZIP Co de Phone Number [facility] MICROBIOLOGY [address] [place] [address], [facility] [phone] * (ABNORMAL) URINALYSIS REFLEX TO MICROSCOPIC NO CULTURE (08/27/2021 5:05 PM [facility]) Color UA Kristi(A) Straw, Yellow 08/27/2021 5:38 PM [facility] Clarity UA Slt Cloudy(A) Clear 08/27/2021 5:38 PM [facility] Specific Arbuckle UA 1.035(H) 1.005 - 1.030 08/27/2021 5:38 PM [facility] pH UA 6.0 5.0 - 8.0 pH 08/27/2021 5:38 PM [facility] Protein UA 1+(A) Negative 08/27/2021 5:38 PM [facility] Glucose UA Negative Negative 08/27/2021 5:38 PM [facility] Ketone UA Negative Negative 08/27/2021 5:38 PM [facility] Bilirubin UA Negative Negative 08/27/2021 5:38 PM [facility] Blood UA 3+(A) Negative 08/27/2021 5:38 PM [facility] Nitrite UA Negative Negative 08/27/2021 5:38 PM [facility] Leukocyte Esterase Negative Negative 08/27/2021 5:38 PM [facility] Urobilinogen UA 4.0(A) Negative mg/dL 08/27/2021 5:38 PM [facility] RBC UA >100(A) None Seen, 0-2, 3-5 /HPF 08/27/2021 5:38 PM [facility] WBC UA 0-5 None Seen, 0-5 /HPF 08/27/2021 5:38 PM [facility] Bacteria UA Trace(A) None /HPF 08/27/2021 5:38 PM [facility] Squamous Epithelial Cells UA None Seen None Seen, 0-2, 3-5 /HPF 08/27/2021 5:38 PM [facility] Mucus UA 1+ /LPF 08/27/2021 5:38 PM [facility] Urine URINE SPECIMEN OBTAINED BY CLEAN CATCH PROCEDURE / Unknown Collection / Unknown 08/27/2021 5:05 PM [facility] 08/27/2021 5:15 PM [facility] - 08/27/2021 5:38 PM [facility] Olegario Villagomez MD LAB - URINALYSIS OR DERABLES [facility] [address] [place] [address], [facility] [phone] * (ABNORMAL) CULTURE SPUTUM+GRAM STAIN (08/27/2021 5:05 PM [facility]) Culture Heavy Staphylococcus aureus methicillin-resista nt (MRSA)(A) MANJIT 08/30/2021 1:38 AM [facility] Comment:Staphylococcus aureu s methicillin-resistant (MRSA) detected by penicillin binding protein immunoassay. Contact precautions required. Conventional antibiotic susceptibility testing to follow. Culture Light normal oropharyngeal izabella MANJIT 08/30/2021 1:38 AM CDT [facility] MICROBI[facility] Gram Stain Heavy Gram-positive cocci 08/30/2021 1:38 AM CDT [facility] MICROBIOLOG[facility] Gram Stain >= 25 per low power field Polymorphonuclear cells 08/30/2021 1:[facility] Gram Stain <10 per low power field Squamous epithelial cells 08/30/2021 1:38 AM CDT [facility] MICROBIOLOGY Microbiology SPUTUM / Unknown Collection / Unknown 08/27/2021 5:05 PM [facility] 08/27/2021 5:15 PM [facility] Narrative [facility] MICROBIOLOG[facility] - 08/30/2021 1:38 AM CDT Methicillin-resistant [...] Olegario Villagomez MD LAB - MICROBIOLOGY ORDERABLES [facility] MICROBIOLOGY [address] [place] [address], [facility] [phone] * XR CHEST 1VW PORTABLE (08/27/2021 4:47 PM [facility]) Anatomical Region Laterality Modality Chest Radiographic Lynette ging 08/27/2021 4:53 PM [facility] Impressions 08/28/2021 12:27 PM CDT FINDINGS/IMPRESSION: Endotracheal tube terminates in the midthoracic trachea. Gastric tube courses in the stomach, tip not imaged. Hypoinflated lungs. Slightly increased right lung haziness and basilar opacities. The left lung is clear. No pneumothorax. The cardiomediastinal silhouette is normal. The visible bony thorax is intact. Dictated by Nemesio Graves DO (vice president of software development). Dr. PRABHJOT Londono MD have personally reviewed [...] Dictated by Nemesio Graves DO (vice president of software development). Dr. PRABHJOT Londono MD have personally reviewed and interpreted this examination/study. This report was electronically signed by PRABHJOT HERRERA MD on 08/28/2021 12:27 PM . Olegario Villagomez MD DIAGNOSTIC IMAGING ORDERABLES * EKG 12-LEAD (08/27/2021 1:24 PM [facility]) Ventricular Rate 72 BPM [facility] MUSE Atrial Rate 72 BPM [facility] MUSE P-R Interval 150 ms [facility] MUSE QRS Duration ms 84 ms [facility] MUSE Q-T Interval ms 376 ms [facility] MUSE QTC Calculation (Bezet) 411 ms [facility] MUSE Calculated P [place] 49 degrees [facility] MUSE Calculated R [place] 57 degrees [facility] MUSE Calculated T [place] 49 degrees [facility] MUSE Interpretation EKG NORMAL SINUS RHYTHM NORMAL ECG WHEN COMPARED WITH ECG OF 24-AUG-2021 19:59, LIMB LEAD REVERSAL NO LONGER SEEN Confirmed by MD Guillermo Lisa ([id number]) on 08/28/2021 4:01:54 PM H MUSE 08/27/2021 1:24 PM [facility] 08/28/2021 4:01 PM CDT Olegario Villagomez MD ECG ORDERABLES [facility] MUSE * AMMONIA (08/27/2021 10:43 AM [facility]) Ammonia 52 <=72 umol/L 08/27/2021 11:15 AM [facility] Blood BLOOD SPECIMEN / Unknown Venipuncture / Unknown 08/27/2021 10:43 AM [facility] 08/27/2021 10:57 AM [facility] Olegario Villagomez MD LAB - CHEMISTRY ORD ERABLES Performing Organization Address [facility] Co de Phone Number [facility] [address] [place] [address], [facility] [phone] * (ABNORMAL) COMPREHENSIVE METABOLIC PANEL (08/27/2021 10:43 AM [facility]) BUN 18 7 - 26 mg/dL 08/27/2021 11:22 AM [facility] Creatinine 0.66(L) 0.71 - 1.16 mg/dL 08/27/2021 11:22 AM [facility] Sodium 140 136 - 145 mmol/L 08/27/2021 11:22 AM [facility] Potassium 3.9 3.5 - 4.5 mmol/L 08/27/2021 11:22 AM [facility] Chloride 109(H) 98 - 107 mmol/L 08/27/2021 11:22 AM [facility] CO2 23 22 - 29 mmol/L 08/27/2021 11:22 AM [facility] Glucose 133(H) 70 - 115 mg/dL 08/27/2021 11:22 AM [facility] Calcium 7.9(L) 8.4 - 10.2 mg/dL 08/27/2021 11:22 AM [facility] Protein Total 6.2 6.0 - 8.3 g/dL 08/27/2021 11:22 AM [facility] Albumin 2.6(L) 3.4 - 5.0 g/dL 08/27/2021 11:22 AM [facility] Bilirubin Total 1.4(H) 0.2 - 1.2 mg/dL 08/27/2021 11:22 AM [facility] Alkaline Phosphatase 100 40 - 150 U/L 08/27/2021 11:22 AM [facility] ALT 37 5 - 55 U/L 08/27/2021 11:22 AM [facility] AST 50(H) 5 - 34 U/L 08/27/2021 11:22 AM [facility] Anion Gap 12 8 - 18 08/27/2021 11:22 AM [facility] BUN/Creatinine Ratio 27(H) 7 - 23 08/27/2021 11:22 AM [facility] Osmolality Calculated 294 270 - 300 mOsm/kg 08/27/2021 11:22 AM [facility] Albumin/Globulin Ratio 0.7(L) 1.1 - 2.3 08/27/2021 11:22 AM [facility] eGFR by CKD-EPI >90 >=90 mL/min/1.7 3 m2 08/27/2021 11:22 AM [facility] Blood BLOOD SPECIMEN / Unknown Venipuncture / Unknown 08/27/2021 10:43 AM [facility] 08/27/2021 10:57 AM [facility] Olegario Villagomez MD LAB - CHEMISTRY ORD ERABLES [facility] [address] [place] [address], [facility] [phone] * (ABNORMAL) PT-INR [facility] (08/27/2021 12:23 AM [facility]) PT 19.0(H) 12.1 - 14.8 Seconds 08/27/2021 12:46 AM [facility] INR 1.6 See Comment 08/27/2021 12:46 AM [facility] Comment:The suggested therap eutic range for standard coumadin (warfarin) therapy is an INR of 2.0-3.0. For high-risk patients (Mechanical Mitral Valve Prosthesis, etc.), the suggested prophylactic therapeutic range is an INR of 2.5-3.5. Blood BLOOD SPECIMEN / Unknown Venipuncture / Unknown 08/27/2021 12:23 AM [facility] 08/27/2021 12:27 AM [facility] Gabriele Riley MD LAB - COAGULATION OR DERABLES Performing Organization Address [facility]/ZIP Co de Phone Number [address] [address], [place] [phone] * (ABNORMAL) PHOSPHORUS BLOOD (08/27/2021 12:23 AM [facility]) Phosphorus 2.7(L) 2.8 - 5.1 mg/dL 08/27/2021 12:54 AM [facility] Blood BLOOD SPECIMEN / Unknown Venipuncture / Unknown 08/27/2021 12:23 AM [facility] 08/27/2021 12:27 AM [facility] Gabriele Riley MD LAB - CHEMISTRY MIGUEL GOLD Performing Organization Address [facility]/ZIP Co de Phone Number [address] [address], [place] [phone] * MAGNESIUM BLOOD (08/27/2021 12:23 AM [facility]) Magnesium 2.3 1.6 - 2.6 mg/dL 08/27/2021 12:54 AM [facility] Blood BLOOD SPECIMEN / Unknown Venipuncture / Unknown 08/27/2021 12:23 AM [facility] 08/27/2021 12:27 AM [facility] Gabriele Riley MD LAB - CHEMISTRY MIGUEL GOLD Performing Organization Address [facility]/ZIP Co de Phone Number [address] [address], [place] [phone] * (ABNORMAL) CBC W/O DIFFERENTIAL (08/27/2021 12:23 AM [facility]) WBC 8.9 3.5 - 10.5 10? 3 /uL 08/27/2021 1:28 AM [facility] RBC 4.32 4.30 - 5.70 10? 6 /uL 08/27/2021 1:28 AM [facility] Hemoglobin 13.6 12.0 - 17.6 g/dL 08/27/2021 1:28 AM [facility] Hematocrit 39.3 35.2 - 51.7 % 08/27/2021 1:28 AM [facility] MCV 91.0 80.7 - 98.3 fL 08/27/2021 1:28 AM [facility] MCH 31.5 26.7 - 34.0 pg 08/27/2021 1:28 AM [facility] MCHC 34.6 30.8 - 35.9 g/dL 08/27/2021 1:28 AM [facility] Platelet Count 74(L) 150 - 400 10? 3 /uL 08/27/2021 1:28 AM [facility] Comment:Checked by periphera l smear. RDW-SD 49.9 36.0 - 50.0 fL 08/27/2021 1:28 AM [facility] RDW-CV 15.0(H) 11.2 - 14.8 % 08/27/2021 1:28 AM [facility] MPV 9.9 9.4 - 12.9 fL 08/27/2021 1:28 AM [facility] nRBC Absolute 0.00 0 10? 3 /uL 08/27/2021 1:28 AM [facility] nRBC Auto 0.0 0 /100 WBC 08/27/2021 1:28 AM [facility] Blood BLOOD SPECIMEN / Unknown Venipuncture / Unknown 08/27/2021 12:23 AM [facility] 08/27/2021 12:27 AM [facility] Gabriele Riley MD LAB - HEMATOLOGY ORD ERABLES [facility] [address] [place] [address], [facility] [phone] * (ABNORMAL) BASIC METABOLIC PANEL (CALCIUM TOTAL) (08/27/2021 12:23 AM [facility]) BUN 18 7 - 26 mg/dL 08/27/2021 12:54 AM [facility] Creatinine 0.62(L) 0.71 - 1.16 mg/dL 08/27/2021 12:54 AM [facility] Sodium 142 136 - 145 mmol/L 08/27/2021 12:54 AM [facility] Potassium 3.9 3.5 - 4.5 mmol/L 08/27/2021 12:54 AM [facility] Chloride 110(H) 98 - 107 mmol/L 08/27/2021 12:54 AM [facility] CO2 24 22 - 29 mmol/L 08/27/2021 12:54 AM [facility] Glucose 118(H) 70 - 115 mg/dL 08/27/2021 12:54 AM [facility] Calcium 8.2(L) 8.4 - 10.2 mg/dL 08/27/2021 12:54 AM [facility] Anion Gap 12 8 - 18 08/27/2021 12:54 AM [facility] BUN/Creatinine Ratio 29(H) 7 - 23 08/27/2021 12:54 AM [facility] Osmolality Calculated 297 270 - 300 mOsm/kg 08/27/2021 12:54 AM [facility] eGFR by CKD-EPI >90 >=90 mL/min/1.7 3 m2 08/27/2021 12:54 AM [facility] Blood BLOOD SPECIMEN / Unknown Venipuncture / Unknown 08/27/2021 12:23 AM [facility] 08/27/2021 12:27 AM [facility] Gabriele Riley MD LAB - CHEMISTRY MIGUEL GOLD [facility] Organization Address City/State/ZIP Co de Phone Number [facility] [address] [place] [address], [facility] [phone] * HIV-1 HIV-2 ANTIBODY + HIV P24 AG PANEL (08/27/2021 12:23 AM [facility]) HIV Antigen/Antibod y 1 & 2 Non-reacti ve Non-react maureen 08/27/2021 1:38 AM [facility] Comment:No Laboratory eviden ce of HIV infection. Blood BLOOD SPECIMEN / Unknown Venipuncture / Unknown 08/27/2021 12:23 AM [facility] 08/27/2021 12:27 AM [facility] Susan Reynaga MD LAB - CHEMISTR Y ORDERABLES [facility] [address] [place] [address], [facility] [phone] * MRI BRAIN WWO CONTRAST (08/26/2021 11:00 PM [facility]) Anatomical Region Laterality Modality Head Magnetic Resonan ce 08/27/2021 5:07 PM [facility] Impressions 08/27/2021 5:26 PM [facility] IMPRESSION: Since prior head CT from 08/24/2021: 1.Redemonstration of evolving early subacute hematoma involving the left temporoparietal region with mild surrounding vasogenic edema and mild local mass effect as outlined. 2.No abnormal enhancement to suggest underlying enhancing mass. 3.Findings compatible with hepatic encephalopathy. This report was electronically signed by ALY MATHEWS ??on 08/27/2021 5:26 PM . Narrative 08/27/2021 5:26 PM [facility] MRI BRAIN WWO CONTRAST DATE: 08/26/2021 11:03 [...] shape, and morphology. Redemonstration of 4 mm [id number] midline shift is again seen at the [...] size, shape, and morphology. Redemonstration of 4 [id number] midline shift is again seen at the [...] * CARDIAC EKG ORDER (08/26/2021 2:11 PM [facility]) Narrative 08/26/2021 2:11 PM [facility] Ordered by an unspecified provider. Scanned Document CARDIAC SERVICES ORD ERABLES * US ABDOMEN DOPPLER ONLY COMP (08/26/2021 12:16 PM [facility]) Anatomical Region Laterality Modality Abdomen Ultrasound 08/26/2021 1:18 PM [facility] Impressions 08/26/2021 2:31 PM [facility] IMPRESSION: 1.Hepatic cirrhosis with sequelae of portal hypertension; there is reversal of normal portal flow directionality. 2.Cholelithiasis with trace pericholecystic fluid. No further sonographic evidence of acute cholecystitis. 3.Nonvisualization of the hepatic veins. 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 4.Trace perihepatic fluid. Report dictated by Axel Weaver MD (vice president of software development). This report was approved ??by Axel Weaver ?? on 08/26/2021 1:57 PM . I, Dr. TAE PICKARD have personally reviewed and interpreted this examination/study. This report was electronically signed by TAE PICKARD ??on 08/26/2021 2:31 PM . Narrative 08/26/2021 2:31 PM [facility] EXAMINATION: 1. Limited abdominal sonogram 2. Color [...] dictated by Axel Weaver MD (vice president of software development). This report was approved by Axel Weaver on 08/26/2021 1:57 PM . I, Dr. TAE PICKARD have personally reviewed and interpreted this examination/study. This report was electronically signed by TAE PICKARD on 08/26/2021 2:31PM . Gabriele Riley MD US ORDERABLES * US ABDOMEN LIMITED (08/26/2021 12:16 PM [facility]) Anatomical Region Laterality Modality Abdomen Ultrasound 08/26/2021 1:18 PM [facility] Impressions 08/26/2021 2:31 PM [facility] IMPRESSION: 1.Hepatic cirrhosis with sequelae of portal hypertension; there is reversal of normal portal flow directionality. 2.Cholelithiasis with trace pericholecystic fluid. No further sonographic evidence of acute cholecystitis. 3.Nonvisualization of the hepatic veins. 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 4.Trace perihepatic fluid. Report dictated by Axel Weaver MD (vice president of software development). This report was approved ??by Axel Weaver ?? on 08/26/2021 1:57 PM . I, Dr. TAE PICKARD have personally reviewed and interpreted this examination/study. This report was electronically signed by TAE PICKARD ??on 08/26/2021 2:31 PM . Narrative 08/26/2021 2:31 PM [facility] EXAMINATION: 1. Limited abdominal sonogram 2. Color [...] dictated by Axel Weaver MD (vice president of software development). This report was approved by Axel Weaver on 08/26/2021 1:[address] TAE Londono have personally reviewed and interpreted this examination/study. This report was electronically signed by TAE PICKARD on 08/26/2021 2:31PM . Gabriele Riley MD ORDERABLES * XR CHEST 1VW PORTABLE (08/26/2021 9:20 AM [facility]) Anatomical Region Laterality Modality Chest Radiographic Lynette ging 08/26/2021 1:51 PM [facility] Impressions 08/26/2021 2:04 PM [facility] FINDINGS/IMPRESSION: Endotracheal tube terminates in the midthoracic trachea. Feeding tube courses below the diaphragm, the tip is off the field of the view. The patient is rotated to the right. There are low lung volumes with bronchovascular crowding. No focal consolidation, pleural effusion, or pneumothorax is seen. The cardiomediastinal silhouette is normal. Report drafted by Octavio Shaffer MD (vice president of software development) Dr. MELINA Londono have personally reviewed and interpreted this examination/study. This report was electronically signed by MELINA GAVIRIA ??on 08/26/2021 2:04 PM . Narrative 08/26/2021 2:04 PM [facility] EXAMINATION: XR CHEST 1VW PORTABLE HISTORY: [id number]: [...] drafted by Octavio Shaffer MD (vice president of software development) Dr. MELINA Londono have personally reviewed and interpreted this examination/study. This report was electronically signed by MELINA GAVIRIA on 08/26/2021 2:04 PM . Gabriele Riley MD DIAGNOSTIC IMAGING O RDERABLES * (ABNORMAL) GLUCOSE - POINT OF CARE (08/26/2021 8:46 AM [facility]) Glucose WB/POC 118(H) 70 - 115 mg/dL 08/26/2021 8:50 AM [facility] Specimen Type Venous 08/26/2021 8:50 AM [facility] Blood BLOOD SPECIMEN / Unknown 08/26/2021 8:46 AM [facility] 08/26/2021 8:50 AM [facility] Gabriele Riley MD LAB - POINT OF CARE ORDERABLES [facility] [address] [place] [address], [facility] [phone] * GLUCOSE - POINT OF CARE (08/26/2021 4:35 AM [facility]) Glucose WB/POC 108 70 - 115 mg/dL 08/26/2021 4:40 AM [facility] Specimen Type Arterial/C apillary 08/26/2021 4:40 AM [facility] Blood BLOOD SPECIMEN / Unknown 08/26/2021 4:35 AM [facility] 08/26/2021 4:40 AM [facility] Gabriele Riley MD LAB - POINT OF CARE ORDERABLES [facility] [address] [place] [address], [place] [phone] * (ABNORMAL) GLUCOSE - POINT OF CARE (08/26/2021 4:01 AM [facility]) Glucose WB/POC 125(H) 70 - 115 mg/dL 08/26/2021 4:01 AM [facility] Specimen Type Cap Fingerstick 2021 4:01 AM [facility] Blood BLOOD SPECIMEN / Unknown 08/26/2021 4:01 AM [facility] 08/26/2021 4:01 AM [facility] Gabriele Riley MD LAB - POINT OF CARE ORDERABLES [facility] [address] [place] [address], [place] [phone] * (ABNORMAL) PT-INR [facility] (08/26/2021 12:32 AM [facility]) PT 18.0(H) 12.1 - 14.8 Seconds 08/26/2021 1:32 AM [facility] INR 1.5 See Comment 08/26/2021 1:32 AM [facility] Comment:The suggested therap eutic range for standard coumadin (warfarin) therapy is an INR of 2.0-3.0. For high-risk patients (Mechanical Mitral Valve Prosthesis, etc.), the suggested prophylactic therapeutic range is an INR of 2.5-3.5. Blood BLOOD SPECIMEN / Unknown Venipuncture / Unknown 08/26/2021 12:32 AM [facility] 08/26/2021 12:46 AM [facility] Gabriele Riley MD LAB - COAGULATION OR DERABLES Performing Organization Address City/[facility]/ZIP Co de Phone Number [address] [address], [place] [phone] * PHOSPHORUS BLOOD (08/26/2021 12:32 AM [facility]) Phosphorus 4.1 2.8 - 5.1 mg/dL 08/26/2021 1:20 AM [facility] Blood BLOOD SPECIMEN / Unknown Venipuncture / Unknown 08/26/2021 12:32 AM [facility] 08/26/2021 12:55 AM [facility] Gabriele Riley MD LAB - CHEMISTRY MIGUEL GOLD Performing Organization Address [facility]/ZIP Co de Phone Number [address] [address], [place] [phone] * MAGNESIUM BLOOD (08/26/2021 12:32 AM [facility]) Magnesium 2.2 1.6 - 2.6 mg/dL 08/26/2021 1:20 AM [facility] Blood BLOOD SPECIMEN / Unknown Venipuncture / Unknown 08/26/2021 12:32 AM [facility] 08/26/2021 12:55 AM [facility] Gabriele Riley MD LAB - CHEMISTRY MIGUEL GOLD [address] [address], [place] [phone] * (ABNORMAL) CBC W/O DIFFERENTIAL (08/26/2021 12:32 AM [facility]) WBC 12.8(H) 3.5 - 10.5 10? 3 /uL 08/26/2021 1:10 AM [facility] RBC 4.58 4.30 - 5.70 10? 6 /uL 08/26/2021 1:10 AM [facility] Hemoglobin 14.4 12.0 - 17.6 g/dL 08/26/2021 1:10 AM [facility] Hematocrit 40.9 35.2 - 51.7 % 08/26/2021 1:10 AM [facility] MCV 89.3 80.7 - 98.3 fL 08/26/2021 1:10 AM [facility] MCH 31.4 26.7 - 34.0 pg 08/26/2021 1:10 AM [facility] MCHC 35.2 30.8 - 35.9 g/dL 08/26/2021 1:10 AM [facility] Platelet Count 121(L) 150 - 400 10? 3 /uL 08/26/2021 1:10 AM [facility] RDW-SD 49.1 36.0 - 50.0 fL 08/26/2021 1:10 AM [facility] RDW-CV 15.2(H) 11.2 - 14.8 % 08/26/2021 1:10 AM [facility] MPV 10.4 9.4 - 12.9 fL 08/26/2021 1:10 AM [facility] nRBC Absolute 0.00 0 10? 3 /uL 08/26/2021 1:10 AM [facility] nRBC Auto 0.0 0 /100 WBC 08/26/2021 1:10 AM [facility] Blood BLOOD SPECIMEN / Unknown Venipuncture / Unknown 08/26/2021 12:32 AM [facility] 08/26/2021 12:55 AM [facility] Gabriele Riley MD LAB - HEMATOLOGY ORD ERABLES [facility] [address] [place] [id number], [facility] [phone] * (ABNORMAL) BASIC METABOLIC PANEL (CALCIUM TOTAL) (08/26/2021 12:32 AM [facility]) BUN 18 7 - 26 mg/dL 08/26/2021 1:20 AM [facility] Creatinine 0.74 0.71 - 1.16 mg/dL 08/26/2021 1:20 AM [facility] Sodium 138 136 - 145 mmol/L 08/26/2021 1:20 AM [facility] Potassium 4.2 3.5 - 4.5 mmol/L 08/26/2021 1:20 AM [facility] Chloride 109(H) 98 - 107 mmol/L 08/26/2021 1:20 AM [facility] CO2 23 22 - 29 mmol/L 08/26/2021 1:20 AM [facility] Glucose 126(H) 70 - 115 mg/dL 08/26/2021 1:20 AM [facility] Calcium 8.4 8.4 - 10.2 mg/dL 08/26/2021 1:20 AM [facility] Anion Gap 10 8 - 18 08/26/2021 1:20 AM [facility] BUN/Creatinine Ratio 24(H) 7 - 23 08/26/2021 1:20 AM [facility] Osmolality Calculated 289 270 - 300 mOsm/kg 08/26/2021 1:20 AM [facility] eGFR by CKD-EPI >90 >=90 mL/min/1.7 3 m2 08/26/2021 1:20 AM [facility] Blood BLOOD SPECIMEN / Unknown Venipuncture / Unknown 08/26/2021 12:32 AM [facility] 08/26/2021 12:55 AM [facility] Gabriele Riley MD LAB - CHEMISTRY MIGUEL GOLD [facility] Organization Address City/State/[facility] Co de Phone Number [facility] [address] [place] [address] [phone] * HEMOGLOBIN A1C (08/26/2021 12:32 AM [facility]) Hemoglobin A1c 5.1 <=5.6 % 08/26/2021 10:53 AM [facility] Estimated Average Glucose 100 mg/dL 08/26/2021 10:53 AM [facility] Comment: HbA1c Interpretation: Normal : < 5.7% Pre-diabetes: 5.7-6.4% Diabetes: Equal to or greater than 6.5% Test results diagnostic of diabetes should be repeated for confirmation. Treatment target values recommended by ADA and other clinical organizations should be used to evaluate metabolic control in patients. Reference: [place] [employer], Standards of Care in Diabetes -2020 In patients 70 years and older consider HbA1c target range of 7.0-7.5% (Reference: Yusef Marquis et al. SOURAVDA. 2012) The Sebia assay for the measurement of HbA1c is a National Glycohemoglobin Standardization Program (NGSP) certified method. Blood BLOOD SPECIMEN / Unknown Venipuncture / Unknown 08/26/2021 12:32 AM [facility] 08/26/2021 12:55 AM [facility] Gabriele Riley MD LAB - CHEMISTRY ORDE RABEMILE [address] [address], [place] [phone] * (ABNORMAL) GLUCOSE - POINT OF CARE (08/25/2021 11:38 PM [facility]) Glucose WB/POC 124(H) 70 - 115 mg/dL 08/26/2021 12:30 AM [facility] Specimen Type Cap Fingerstick 2021 12:30 AM [facility] Blood BLOOD SPECIMEN / Unknown 08/25/2021 11:38 PM [facility] 08/26/2021 12:30 AM [facility] Gabriele Riley MD LAB - POINT OF CARE ORDERABLES [address] [address], [place] [phone] * (ABNORMAL) GLUCOSE - POINT OF CARE (08/25/2021 7:49 PM [facility]) Glucose WB/POC 132(H) 70 - 115 mg/dL 08/25/2021 7:50 PM [facility] Specimen Type Cap Fingerstick 2021 7:50 PM [facility] Blood BLOOD SPECIMEN / Unknown 08/25/2021 7:49 PM [facility] 08/25/2021 7:50 PM [facility] Gabriele Riley MD LAB - POINT OF CARE ORDERABLES [facility] [address] [place] [address], [facility] [phone] * ECHO COMPLETE W BUBBLE STUDY (08/25/2021 1:56 PM [facility]) Anatomical Region Laterality Modality Chest Echo 08/25/2021 1:22 PM [facility] Narrative Procedure Note Jose R Salcedo MD - 08/26/2021 Gabriele Riley MD ECHOCARDIOGRAPHY RAD IANT * ALCOHOL ETHYL BLOOD (08/25/2021 12:09 PM [facility]) Ethanol (mg/dL) <10 <10 mg/dL 12:48 PM [facility] Ethanol Calculated (g/dL) <0.010 <0.010 g/dL 08/25/2021 12:48 PM [facility] Blood BLOOD SPECIMEN / Unknown Venipuncture / Unknown 08/25/2021 12:09 PM [facility] 08/25/2021 12:25 PM [facility] Narrative [facility] - 08/25/2021 12:48 PM [facility] Ethanol Interp <10: None Detected. Depression of WINTERIZER: >100 mg/dl Potentially Critical: >250 mg/dl Potentially [...] Riley MD LAB - CHEMISTRY ORDE RABLES [facility] [address] [place] [address], [place] [phone] * XR ABDOMEN KUB PORTABLE (08/25/2021 11:04 AM [facility]) Anatomical Region Laterality Modality Abdomen Radiographic Lynette ging 08/25/2021 11:0 5 AM [facility] Impressions 08/25/2021 11:24 AM [facility] FINDINGS/IMPRESSION: Enteric tube is seen coursing below the diaphragm with tip terminating in the expected location of the gastric fundus. Report dictated by Jose R Bess M.D. (vice president of software development). I, Dr. REMINGTON ROGERS have personally reviewed and interpreted this examination/study. This report was electronically signed by REMINGTON ROGERS ??on 08/25/2021 11:24 AM . Narrative 08/25/2021 11:24 AM [facility] EXAMINATION: XR ABDOMEN KUB PORTABLE HISTORY: R13.10: Dysphagia, unspecified type COMPARISON: Portable KUB 10/07/2018 Procedure Note Remington Rogers MD - 08/25/2021 EXAMINATION: XR ABDOMEN KUB PORTABLE HISTORY: R13.10: Dysphagia, unspecified type COMPARISON: Portable KUB 10/07/2018 FINDINGS/IMPRESSION: Enteric tube is seen coursing below the diaphragm with tip terminatingin the expected location of the gastric fundus. Report dictated by Jose R Bess M.D. (vice president of software development). I, Dr. REMINGTON ROGERS have personally reviewed and interpreted this examination/study. This report was electronically signed by REMINGTON ROGERS on 1:24 AM . Gabriele Riley MD DIAGNOSTIC IMAGING O RDERABLES * (ABNORMAL) PT-INR [facility] (08/25/2021 4:20 AM [facility]) PT 18.3(H) 12.1 - 14.8 Seconds 08/25/2021 5:03 AM [facility] INR 1.5 See Comment 08/25/2021 5:03 AM [facility] Comment:The suggested therap eutic range for standard coumadin (warfarin) therapy is an INR of 2.0-3.0. For high-risk patients (Mechanical Mitral Valve Prosthesis, etc.), the suggested prophylactic therapeutic range is an INR of 2.5-3.5. Blood BLOOD SPECIMEN / Unknown Venipuncture / Unknown 08/25/2021 4:20 AM [facility] 08/25/2021 4:40 AM [facility] Gabriele Riley MD LAB - COAGULATION OR DERABLES [facility] [address] [place] [address], [facility] [phone] * (ABNORMAL) BASIC METABOLIC PANEL (CALCIUM TOTAL) (08/25/2021 4:20 AM [facility]) BUN 11 7 - 26 mg/dL 08/25/2021 5:18 AM [facility] Creatinine 0.62(L) 0.71 - 1.16 mg/dL 08/25/2021 5:18 AM [facility] Sodium 137 136 - 145 mmol/L 08/25/2021 5:18 AM [facility] Potassium 3.8 3.5 - 4.5 mmol/L 08/25/2021 5:18 AM [facility] Chloride 106 98 - 107 mmol/L 08/25/2021 5:18 AM [facility] CO2 20(L) 22 - 29 mmol/L 08/25/2021 5:18 AM [facility] Glucose 162(H) 70 - 115 mg/dL 08/25/2021 5:18 AM [facility] Calcium 9.1 8.4 - 10.2 mg/dL 08/25/2021 5:18 AM [facility] Anion Gap 15 8 - 18 08/25/2021 5:18 AM [facility] BUN/Creatinine Ratio 18 7 - 23 08/25/2021 5:18 AM [facility] Osmolality Calculated 287 270 - 300 mOsm/kg 08/25/2021 5:18 AM [facility] eGFR by CKD-EPI >90 >=90 mL/min/1.7 3 m2 08/25/2021 5:18 AM [facility] Blood BLOOD SPECIMEN / Unknown Venipuncture / Unknown 08/25/2021 4:20 AM [facility] 08/25/2021 4:52 AM [facility] Gabriele Riley MD LAB - CHEMISTRY ORDE RABLES [facility] [address] [place] [address], [facility] [phone] * (ABNORMAL) CBC W/O DIFFERENTIAL (08/25/2021 4:20 AM [facility]) WBC 3.7 3.5 - 10.5 10? 3 /uL 08/25/2021 5:16 AM [facility] RBC 5.01 4.30 - 5.70 10? 6 /uL 08/25/2021 5:16 AM [facility] Hemoglobin 15.8 12.0 - 17.6 g/dL 08/25/2021 5:16 AM [facility] Hematocrit 43.7 35.2 - 51.7 % 08/25/2021 5:16 AM [facility] MCV 87.2 80.7 - 98.3 fL 08/25/2021 5:16 AM [facility] MCH 31.5 26.7 - 34.0 pg 08/25/2021 5:16 AM [facility] MCHC 36.2(H) 30.8 - 35.9 g/dL 08/25/2021 5:16 AM [facility] Platelet Count 88(L) 150 - 400 10? 3 /uL 08/25/2021 5:16 AM [facility] RDW-SD 46.4 36.0 - 50.0 fL 08/25/2021 5:16 AM [facility] RDW-CV 14.6 11.2 - 14.8 % 08/25/2021 5:16 AM [facility] MPV 10.2 9.4 - 12.9 fL 08/25/2021 5:16 AM [facility] nRBC Absolute 0.00 0 10? 3 /uL 08/25/2021 5:16 AM [facility] nRBC Auto 0.0 0 /100 WBC 08/25/2021 5:16 AM [facility] Blood BLOOD SPECIMEN / Unknown Venipuncture / Unknown 08/25/2021 4:20 AM [facility] 08/25/2021 4:37 AM [facility] Gabriele Riley MD LAB - HEMATOLOGY ORD ERABLES Performing Organization Address City/[facility]/ZIP Co de Phone Number [facility] [address] [place] [address], [facility] [phone] * TROPONIN I (08/25/2021 4:20 AM [facility]) Troponin I <0.010 <0.032 ng/mL 08/25/2021 5:23 AM [facility] Blood BLOOD SPECIMEN / Unknown Venipuncture / Unknown 08/25/2021 4:20 AM [facility] 08/25/2021 4:37 AM [facility] Thien Aguustin MD LAB - CHEMISTRY MIGUEL GOLD Performing Organization Address [facility]/ZIP Co de Phone Number [address] [address], [facility] [phone] * CT HEAD WO CONTRAST (08/25/2021 2:23 AM [facility]) Anatomical Region Laterality Modality Head Computed Tomogra phy 08/25/2021 2:34 AM [facility] Impressions 08/25/2021 9:44 AM [facility] IMPRESSION: 1. Grossly unchanged large intraparenchymal hematoma centered in the left parietotemporal lobe, with moderate mass effect upon the adjacent structures and unchanged 5 mm left to right midline shift. Report dictated by Meena Wall MD (vice president of software development). I, Dr. RADHA TEJADA M.D. have personally reviewed and interpreted this examination/study. This report was electronically signed by RADHA TEJADA M.D. ??on 08/25/2021 9:44 AM . Narrative 08/25/2021 9:44 AM [facility] EXAMINATION: Computed tomography (CT) of the head [...] dictated by Meena Wall MD (vice president of software development). I, Dr. RADHA TEJADA M.D. have personally reviewed and interpreted this examination/study. This report was electronically signed by RADHA TEJADA M.D. on 08/25/2021 9:44 AM . Thien Augustin MD CT ORDERABLES * (ABNORMAL) BLOOD GASES ART + COOX PANEL (08/24/2021 10:02 PM [facility]) pH Arterial 7.50(H) 7.35 - 7.45 pH 08/24/2021 10:15 PM [facility] pO2 Arterial 193(H) 80 - 100 mmHg 08/24/2021 10:15 PM [facility] pCO2 Arterial 27(L) 35 - 45 mmHg 10:15 PM [facility] HCO3 Arterial 21 20 - 30 mmol/l 08/24/2021 10:15 PM [facility] BE Arterial -0.7 -2.0 - 2.0 mmol/L 08/24/2021 10:15 PM [facility] Oxyhemoglobin Arterial 97.7 % 08/24/2021 10:15 PM [facility] Dexoyhemoglobin (HHB) % 0.0 % 08/24/2021 10:15 PM [facility] Methemoglobin 1.0 0.0 - 2.0 % 08/24/2021 10:15 PM [facility] Carboxyhemoglobin 1.3 0.0 - 2.0 % 2021 10:15 PM [facility] O2 Content Arterial 19.6 Interpret within clinical context mg/dL 08/24/2021 10:15 PM [facility] Hemoglobin by COOX 14.0 12.0 - 17.6 g/dL 08/24/2021 10:15 PM [facility] O2 Saturation Arterial 100 90 - 100 % 08/24/2021 10:15 PM [facility] FI O2 Arterial 40.0 % 08/24/2021 10:15 PM [facility] Blood, arterial ARTERIAL BLOOD SPECIMEN / Unknown Arterial Puncture / Unknown 08/24/2021 10:02 PM [facility] 08/24/2021 10:10 PM [facility] - 08/24/2021 10:15 PM [facility] Carboxyhemoglobin Normal Concentration: Non-smokers: 0-2%; Smokers: 0-9%; Toxic: >20% Thien Augustin MD LAB - BLOOD GASES OR DERABLES [address] [address], [place] [phone] * TROPONIN I (08/24/2021 10:02 PM [facility]) Troponin I 0.014 <0.032 ng/mL 08/24/2021 10:41 PM [facility] Blood BLOOD SPECIMEN / Unknown Venipuncture / Unknown 08/24/2021 10:02 PM [facility] 08/24/2021 10:10 PM [facility] Thien Augustin MD LAB - CHEMISTRY ORDE RABLES Performing Organization Address City/[facility]/ZIP Co de Phone Number [address] [address], [facility] [phone] * XR CHEST 1VW PORTABLE (08/24/2021 8:17 PM [facility]) Anatomical Region Laterality Modality Chest Radiographic Lynette ging 08/24/2021 8:23 PM [facility] Impressions 08/25/2021 5:54 AM [facility] FINDINGS/IMPRESSION: Endotracheal tube terminates in the midthoracic trachea. Gastric tube courses in the stomach, tip not imaged. There is no focal consolidation, pleural effusion, or pneumothorax. The cardiomediastinal silhouette is normal. The visible bony thorax is intact. Dictated by Nemesio Gravse DO (vice president of software development). I, Dr. PRABHJOT HERRERA MD have personally reviewed and interpreted this examination/study. This report was electronically signed by PRABHJOT HERRERA MD ??on 08/25/2021 5:54 AM . Narrative 08/25/2021 5:54 AM [facility] EXAMINATION: XR CHEST 1VW PORTABLE HISTORY: I61.9: [...] Dictated by Nemesio Graves DO (vice president of software development). I, Dr. PRABHJOT HERRERA MD have personally reviewed and interpreted this examination/study. This report was electronically signed by PRABHJOT HERRERA MD on 08/25/2021 5:54 AM . Thien Augustin MD DIAGNOSTIC IMAGING O RDERABLES * EKG 12-LEAD (08/24/2021 7:59 PM [facility]) Ventricular Rate 84 BPM [facility] Atrial Rate 84 BPM [facility] P-R Interval 102 ms [facility] QRS Duration ms 84 ms [facility] Q-T Interval ms 418 ms [facility] QTC Calculation (Bezet) 493 ms [facility] Calculated P [place] -4 degrees [facility] Calculated R [place] 126 degrees [facility] Calculated T [place] 127 degrees [facility] Interpretation EKG SUSPECT LIMB LEAD REVERSAL SINUS RHYTHM WITH SHORT [place] MINIMAL VOLTAGE CRITERIA FOR [facility], MAY BE NORMAL VARIANT ( Sokolow-Lyo n ) PROLONGED QT ABNORMAL ECG WHEN COMPARED WITH ECG OF 15-OCT-2018 08:33, SUSPECT LIMB LEADS ARE NOW REVERSED Confirmed by Rod Friedman ([id number]) on 08/27/2021 5:28:48 PM [facility] 08/24/2021 7:59 PM [facility] 08/27/2021 5:28 PM [facility] Thien Augustin MD ECG ORDERABLES [facility] MUSE * DRUG SCREEN EXPANDED TOXICOLOGY URINE PANEL (08/24/2021 7:45 PM [facility]) Drug Screen Expanded See Scanned Report 08/25/2021 10:24 AM [facility] NON INTERF Urine URINE / Unknown Collection / Unknown 08/24/2021 7:45 PM [facility] 08/24/2021 7:51 PM [facility] Thien Augustin MD LAB - URINE CHEMISTR Y ORDERABLES [facility] REF LAB NON INTERF [address] [place] [address], [facility] [phone] * (ABNORMAL) URINALYSIS REFLEX TO MICROSCOPIC NO CULTURE (08/24/2021 7:45 PM [facility]) Color UA Straw Straw, Yellow 08/24/2021 8:02 PM [facility] Clarity UA Clear Clear 08/24/2021 8:02 PM [facility] Specific Arbuckle UA 1.046(H) 1.005 - 1.030 08/24/2021 8:02 PM [facility] pH UA 6.0 5.0 - 8.0 pH 08/24/2021 8:02 PM [facility] Protein UA Negative Negative 08/24/2021 8:02 PM [facility] Glucose UA Negative Negative 08/24/2021 8:02 PM [facility] Ketone UA Trace(A) Negative 08/24/2021 8:02 PM [facility] Bilirubin UA Negative Negative 08/24/2021 8:02 PM [facility] Blood UA 2+(A) Negative 08/24/2021 8:02 PM [facility] Nitrite UA Negative Negative 08/24/2021 8:02 PM [facility] Leukocyte Esterase Negative Negative 08/24/2021 8:02 PM [facility] Urobilinogen UA Negative Negative mg/dL 08/24/2021 8:02 PM [facility] RBC UA 3-5 None Seen, 0-2, 3-5 /HPF 08/24/2021 8:02 PM [facility] WBC UA 0-5 None Seen, 0-5 /HPF 08/24/2021 8:02 PM [facility] Squamous Epithelial Cells UA None Seen None Seen, 0-2, 3-5 /HPF 08/24/2021 8:02 PM [facility] Urine URINE SPECIMEN OBTAINED BY SINGLE CATHETERIZATION OF URINARY BLADDER / Unknown Collection / Unknown 08/24/2021 7:45 PM [facility] 08/24/2021 7:50 PM [facility] Narrative [facility] - 08/24/2021 8:02 PM [facility] Thien Augustin MD LAB - URINALYSIS ORD ERABLES [facility] [address] [place] [address], [facility] [phone] * (ABNORMAL) URINE DRUG SCREEN IMMUNOASSAY (08/24/2021 7:45 PM [facility]) Pathologist [facility] Amphetamines Screen Urine Positive(A) Negative : < 1000 ng/mL 08/24/2021 8:08 PM [facility] Comment: Positive urine amphetamine screening results should be confirmed by another generally accepted non-immunological method such as gas chromatography or mass spectrometry. ? Barbiturates Screen Urine Negative Negative : < 200 ng/mL 08/24/2021 8:08 PM [facility] Benzodiazepine Screen Urine Positive(A) Negative : < 200 ng/mL 08/24/2021 8:08 PM [facility] Comment: Positive urine benzodiazepine screening results should be confirmed by another generally accepted non-immunological method such as gas chromatography or mass spectrometry. ? Opiates Urine Negative Negative : < 300 ng/mL 08/24/2021 8:08 PM [facility] Cocaine Metabolites Urine Negative Negative : < 300 ng/mL 08/24/2021 8:08 PM [facility] Phencyclidine Screen Urine Negative Negative : < 25 ng/ml 08/24/2021 8:08 PM [facility] Cannabinoids Screen Urine Negative Negative : <50 ng/mL 08/24/2021 8:08 PM [facility] Methadone Screen Urine Negative Negative : < 300 ng/mL 08/24/2021 8:08 PM [facility] Fentanyl Screen Urine Negative Negative : <1.0 ng/mL 08/24/2021 8:08 PM [facility] Urine URINE / Unknown Collection / Unknown 08/24/2021 7:45 PM [facility] 08/24/2021 7:51 PM [facility] Narrative [facility] - 08/24/2021 8:08 PM [facility] The Urine Toxicology Screening Panel does not screen for Propoxyphene, Meprobamate, Carisoprodol, Trazodone, [id number] medications and/or volatiles (Acetone, Isopropanol, Methanol or Ethylene Glycol). Ethanol, Salicylate, Acetaminophen, Tricyclic Antidepressants and several therapeutic drugs may be individually assayed in serum or plasma specimen. Toxicology testing by the [facility] is an aid to medical diagnosis and treatment of patients. No documented chain of custody was maintained. Results are intended to be used for clinical purposes only. ? Thien Augustin MD LAB - URINE CHEMISTR Y ORDERABLES Performing Organization Address [facility]/State/[facility] Co de Phone Number [facility] [address] [place] [address], [place] [phone] * ACETAMINOPHEN LEVEL (08/24/2021 7:36 PM [facility]) Acetaminophen <3.0 <3.0 ug/mL 08/24/2021 8:01 PM [facility] Blood BLOOD SPECIMEN / Unknown Venipuncture / Unknown 08/24/2021 7:36 PM [facility] 08/24/2021 7:41 PM [facility] Narrative [facility] - 08/24/2021 8:01 PM [facility] Acetaminophen Toxicity Levels (Hours Post Ingestion): ? [...] [facility]/ZIP Co de Phone Number [address] [address], [facility] [phone] * (ABNORMAL) SALICYLATE LEVEL BLOOD (08/24/2021 7:36 PM [facility]) Salicylate <5(L) 15 - 30 mg/dL 08/24/2021 8:01 PM [facility] Blood BLOOD SPECIMEN / Unknown Venipuncture / Unknown 08/24/2021 7:36 PM [facility] 08/24/2021 7:41 PM [facility] Narrative [facility] - 08/24/2021 8:01 PM [facility] This test is not intended for use with low-dose aspirin therapy. Most patients on low-dose aspirin for cardiovascular prophylaxis will have serum concentrations near or below the lower limit of the analytical range. Thien Augustin MD LAB - CHEMISTRY MIGUEL GOLD Performing Organization Address City/[facility]/ZIP Co de Phone Number [address] [phone] [phone] * (ABNORMAL) BLOOD GASES ART + COOX PANEL (08/24/2021 7:36 PM [facility]) pH Arterial 7.40 7.35 - 7.45 pH 08/24/2021 7:49 PM [facility] pO2 Arterial 173(H) 80 - 100 mmHg 08/24/2021 7:49 PM [facility] pCO2 Arterial 36 35 - 45 mmHg 7:49 PM [facility] HCO3 Arterial 22 20 - 30 mmol/l 08/24/2021 7:49 PM [facility] BE Arterial -2.0 -2.0 - 2.0 mmol/L 08/24/2021 7:49 PM [facility] Oxyhemoglobin Arterial 97.1 % 08/24/2021 7:49 PM [facility] Dexoyhemoglobin (HHB) % 0.0 % 08/24/2021 7:49 PM [facility] Methemoglobin <0.8 0.0 - 2.0 % 08/24/2021 7:49 PM [facility] Carboxyhemoglobin 2.1(H) 0.0 - 2.0 % 2021 7:49 PM [facility] O2 Content Arterial 18.0 Interpret within clinical context mg/dL 08/24/2021 7:49 PM [facility] Hemoglobin by COOX 12.9 12.0 - 17.6 g/dL 08/24/2021 7:49 PM [facility] O2 Saturation Arterial 100 90 - 100 % 08/24/2021 7:49 PM [facility] FI O2 Arterial 40.0 % 08/24/2021 7:49 PM [facility] Blood, arterial ARTERIAL BLOOD SPECIMEN / Unknown Arterial Puncture / Unknown 08/24/2021 7:36 PM [facility] 08/24/2021 7:47 PM [facility] - 08/24/2021 7:49 PM [facility] Carboxyhemoglobin Normal Concentration: Non-smokers: 0-2%; Smokers: 0-9%; Toxic: >20% Thien Augustin MD LAB - BLOOD GASES OR DERABLES Performing Organization Address City/[facility]/ZIP Co de Phone Number [address] [address], [facility] [phone] * LACTIC ACID BLOOD (08/24/2021 7:36 PM [facility]) Pathologist [facility] Lactic Acid-Stat 1.3 <=2.0 mmol/L 08/24/2021 8:21 PM [facility] Blood BLOOD SPECIMEN / Unknown Venipuncture / Unknown 08/24/2021 7:36 PM [facility] 08/24/2021 7:42 PM [facility] Narrative Authorizing Provider Result Gato Augustin MD LAB - CHEMISTRY MIGUEL GOLD Performing Organization Address City/[facility]/ZIP Co de Phone Number [address] [address], [facility] [phone] * (ABNORMAL) CK BLOOD (08/24/2021 7:36 PM [facility]) Pathologist [facility] CK Total 409(H) 30 - 200 U/L 08/24/2021 8:01 PM [facility] Blood BLOOD SPECIMEN / Unknown Venipuncture / Unknown 08/24/2021 7:36 PM [facility] 08/24/2021 7:41 PM [facility] Narrative Authorizing Provider Result Gato Augustin MD LAB - CHEMISTRY MIGUEL GOLD Performing Organization Address City/[facility]/ZIP Co de Phone Number [address] [address], [place] [phone] * TYPE + SCREEN PANEL (08/24/2021 7:36 PM [facility]) Pathologist [facility] [place] Antibody Screen NEG 8:27 PM [facility] BLOOD BANK LAB ABO Rh O POS 08/24/2021 8:27 PM [facility] BLOOD [facility] LAB Blood Bank BLOOD SPECIMEN / Unknown Venipuncture / Unknown 08/24/2021 7:36 PM [facility] 08/24/2021 7:43 PM [facility] Thien Augustin MD LAB - BLOOD BANK ORD ERABLES [facility] BLOOD [facility] LAB [address] [place] [address], [place] [phone] * TROPONIN I (08/24/2021 7:36 PM [facility]) [facility] Troponin I 0.010 <0.032 ng/mL 08/24/2021 8:05 PM [facility] Blood BLOOD SPECIMEN / Unknown Venipuncture / Unknown 08/24/2021 7:36 PM [facility] 08/24/2021 7:41 PM [facility] Thien Augustin MD LAB - CHEMISTRY ORDE RABLES Performing Organization Address City/[facility]/ZIP Co de Phone Number [address] [address], [place] [phone] * (ABNORMAL) PT-INR [facility] (08/24/2021 7:36 PM [facility]) [facility] PT 19.4(H) 12.1 - 14.8 Seconds 08/24/2021 8:01 PM [facility] INR 1.7 See Comment 08/24/2021 8:01 PM [facility] Comment:The suggested therap eutic range for standard coumadin (warfarin) therapy is an INR of 2.0-3.0. For high-risk patients (Mechanical Mitral Valve Prosthesis, etc.), the suggested prophylactic therapeutic range is an INR of 2.5-3.5. Blood BLOOD SPECIMEN / Unknown Venipuncture / Unknown 08/24/2021 7:36 PM [facility] 08/24/2021 7:41 PM [facility] Narrative Authorizing Provider Result Gato Augustin MD LAB - COAGULATION OR DERABLES [facility] [address] [place] [address], [place] [phone] * (ABNORMAL) COMPREHENSIVE METABOLIC PANEL (08/24/2021 7:36 PM [facility]) [facility] BUN 10 7 - 26 mg/dL 08/24/2021 8:01 PM [facility] Creatinine 0.66(L) 0.71 - 1.16 mg/dL 08/24/2021 8:01 PM [facility] Sodium 134(L) 136 - 145 mmol/L 08/24/2021 8:01 PM [facility] Potassium 3.9 3.5 - 4.5 mmol/L 08/24/2021 8:01 PM [facility] Chloride 104 98 - 107 mmol/L 08/24/2021 8:01 PM [facility] CO2 22 22 - 29 mmol/L 08/24/2021 8:01 PM [facility] Glucose 110 70 - 115 mg/dL 08/24/2021 8:01 PM [facility] Calcium 8.0(L) 8.4 - 10.2 mg/dL 08/24/2021 8:01 PM [facility] Protein Total 5.9(L) 6.0 - 8.3 g/dL 08/24/2021 8:01 PM [facility] Albumin 2.7(L) 3.4 - 5.0 g/dL 08/24/2021 8:01 PM [facility] Bilirubin Total 1.5(H) 0.2 - 1.2 mg/dL 08/24/2021 8:01 PM [facility] Alkaline Phosphatase 116 40 - 150 U/L 08/24/2021 8:01 PM [facility] ALT 46 5 - 55 U/L 08/24/2021 8:01 PM [facility] AST 79(H) 5 - 34 U/L 08/24/2021 8:01 PM [facility] Anion Gap 12 8 - 18 08/24/2021 8:01 PM [facility] BUN/Creatinine Ratio 15 7 - 23 08/24/2021 8:01 PM [facility] Osmolality Calculated 278 270 - 300 mOsm/kg 08/24/2021 8:01 PM [facility] Albumin/Globulin Ratio 0.8(L) 1.1 - 2.3 08/24/2021 8:01 PM [facility] eGFR by CKD-EPI >90 >=90 mL/min/1.7 3 m2 08/24/2021 8:01 PM [facility] Blood BLOOD SPECIMEN / Unknown Venipuncture / Unknown 08/24/2021 7:36 PM [facility] 08/24/2021 7:41 PM [facility] Thien Augustin MD LAB - CHEMISTRY MIGUEL GOLD [facility] Organization Address City/State/ZIP Co de Phone Number [facility] [address] [place] [address], [facility] [phone] * (ABNORMAL) CBC W AUTO DIFFERENTIAL (08/24/2021 7:36 PM [facility]) WBC 4.5 3.5 - 10.5 10? 3 /uL 08/24/2021 7:50 PM [facility] RBC 4.08(L) 4.30 - 5.70 10? 6 /uL 08/24/2021 7:50 PM [facility] Hemoglobin 12.9 12.0 - 17.6 g/dL 08/24/2021 7:50 PM [facility] Hematocrit 36.1 35.2 - 51.7 % 08/24/2021 7:50 PM [facility] MCV 88.5 80.7 - 98.3 fL 08/24/2021 7:50 PM [facility] MCH 31.6 26.7 - 34.0 pg 08/24/2021 7:50 PM [facility] MCHC 35.7 30.8 - 35.9 g/dL 08/24/2021 7:50 PM [facility] Platelet Count 81(L) 150 - 400 10? 3 /uL 08/24/2021 7:50 PM [facility] RDW-SD 46.8 36.0 - 50.0 fL 08/24/2021 7:50 PM [facility] RDW-CV 14.6 11.2 - 14.8 % 08/24/2021 7:50 PM [facility] MPV 10.2 9.4 - 12.9 fL 08/24/2021 7:50 PM [facility] nRBC Absolute 0.00 0 10? 3 /uL 08/24/2021 7:50 PM [facility] nRBC Auto 0.0 0 /100 WBC 08/24/2021 7:50 PM [facility] Neutrophils % 87.6(H) 35.0 - 70.0 % 08/24/2021 7:50 PM [facility] Lymphocytes % 9.6(L) 20.0 - 43.0 % 08/24/2021 7:50 PM [facility] Monocytes % 2.2(L) 5.0 - 13.0 % 08/24/2021 7:50 PM [facility] Eosinophils % 0.2 0.0 - 6.0 % 08/24/2021 7:50 PM [facility] Basophil % 0.2 0.0 - 2.0 % 08/24/2021 7:50 PM [facility] Neutrophils Absolute 3.9 1.6 - 7.0 10? 3 /uL 08/24/2021 7:50 PM [facility] Lymphocyte Absolute 0.4(L) 1.1 - 3.9 10? 3 /uL 08/24/2021 7:50 PM [facility] Monocytes Absolute 0.10(L) 0.26 - 1.07 10? 3 /uL 08/24/2021 7:50 PM [facility] Eosinophils Absolute 0.01 0.00 - 0.47 10? 3 /uL 08/24/2021 7:50 PM [facility] Basophils Absolute 0.01 0.00 - 0.08 10? 3 /uL 08/24/2021 7:50 PM [facility] Immature Granulocytes % 0.2 0.0 - 1.0 % 08/24/2021 7:50 PM [facility] Immature Granulocytes Absolute 0.01 08/24/2021 7:50 PM [facility] Immature Platelet Fraction 2.4 1.1 - 6.2 % 08/24/2021 7:50 PM [facility] Blood BLOOD SPECIMEN / Unknown Venipuncture / Unknown 08/24/2021 7:36 PM [facility] 08/24/2021 7:41 PM [facility] Thien Augustin MD LAB - HEMATOLOGY ORD ERABLES [facility] [address] [place] [address], [facility] [phone] * CT CHEST ABDOMEN PELVIS W CONT (08/24/2021 7:31 PM [facility]) Anatomical Region Laterality Modality Chest, Abdomen, Pelvis Computed Tomography 08/24/2021 7:32 PM [facility] Impressions 08/25/2021 9:42 AM [facility] Impression: 1.No acute finding within the chest. [...] 9:42 AM . Narrative 08/25/2021 9:42 AM [facility] Procedure Information DATE: 08/24/2021 7:32 PM EXAMINATION: [...] ANGIO BRAIN AND NECK (08/24/2021 7:30 PM [facility]) Anatomical Region Laterality Modality Head Computed Tomogra phy 08/24/2021 7:40 PM [facility] Impressions 08/25/2021 8:45 AM [facility] IMPRESSION: 1.The left A1 and A2 segments [...] Dictated by Nemesio Graves DO (vice president of software development) Dr. RADHA Londono M.D. have personally reviewed and interpreted this examination/study. This report was electronically signed by RADHA TEJADA M.D. ??on 08/25/2021 8:45 AM . Narrative 08/25/2021 8:45 AM [facility] EXAMINATION: CT angiography of the head with [...] Dictated by Nemesio Graves DO (vice president of software development) Dr. RADHA Londono M.D. have personally reviewed and interpreted this examination/study. This report was electronically signed by RADHA TEJADA M.D. on 08/25/2021 8:45 AM . Gabriele Riley MD CT ORDERABLES * CT BRAIN - Stroke (08/24/2021 7:16 PM [facility]) Anatomical Region Laterality Modality Head Computed Tomogra phy 08/24/2021 7:28 PM [facility] Impressions 08/25/2021 8:30 AM [facility] IMPRESSION: 1. Acute intraparenchymal hematoma in the left posterior parietotemporal lobes measuring approximately 3.4 x 3.6 x 3.7 cm with mild surrounding vasogenic edema. Mass effect causes 5 mm left to right midline shift. Findings were discussed with Dr. Vela by Dr. Graves at 7:33 PM on 08/24/2021 via telephone with readback comprehension and verification. Dictated by Nemesio Graves DO (residential construction instructor) Dr. RADHA Londono M.D. have personally reviewed and interpreted this examination/study. This report was electronically signed by RADHA TEJADA M.D. ??on 08/25/2021 8:30 AM . Narrative 08/25/2021 8:30 AM [facility] EXAMINATION: Computed tomography (CT) of the head [...] verification. Dictated by Nemesio Graves DO (residential construction instructor) I, Dr. RADHA TEJADA M.D. have personally [...] before administration. $ Given 08/25/2021 1:58 PM [facility] 10 mL $ Given 08/25/2021 1:57 PM [facility] 10 mL 0.9% NaCl injection 3 mL [...] 0000 $ New Bag/Syringe 08/28/2021 12:12 AM [facility] 500 mL 967.74 mL/hr 0.9% NaCl IV [...] $ Given - Contrast 08/26/2021 11:03 PM [facility] 7 mL haloperidol (Haldol) tablet 5 mg [...] $ Given - Contrast 08/24/2021 7:10 PM [facility] 100 mL lacosamide (Vimpat) tablet 100 mg [...] 1915 $ New Bag/Syringe 08/24/2021 8:03 PM [facility] 2,750 mg 555 mL/hr levETIRAcetam (Keppra) tablet [...] 12 HOURS, 6 doses, First dose on [facility] 09/01/21 at 0900, Last dose on [facility] 09/03/21 at 2100, Indication for anti-infective therapy: Documented infection, Site of anti-infective therapy: Upper Respiratory, Lower Respiratory $ Given 09/01/2021 9:30 AM CDT 600 mg NG Tube linezolid (Zyvox) tablet 600 mg 600 mg, Oral, EVERY 12 HOURS, 5 doses, First dose (after last modification) on [facility] 09/01/21 at 2100, Last dose on [facility] 09/03/21 at 2100, Indication for anti-infective therapy: Documented infection, Site of anti-infective therapy: Upper Respiratory, Lower Respiratory $ Given 09/03/2021 8:45 PM CDT 600 mg $ Given 09/03/2021 8:46 AM CDT 600 mg $ Given 09/02/2021 9:00 PM CDT 600 mg lisinopril (Prinivil; Zestril) tablet 10 mg 10 mg, Oral, DAILY, First dose on [facility] 09/04/21 at 2030, Until Discontinued $ Given [...] 2nd $ New Bag/Syringe 08/24/2021 7:39 PM [facility] 4 mg/hr 4 mL/hr midazolam (Versed) injection [...] 2 min. $ Given 08/26/2021 8:31 AM [facility] 40 mg $ Given 08/25/2021 9:58 AM [facility] 40 mg $ Given 08/24/2021 9:50 PM [facility] 40 mg polyethylene glycol 3350 (Miralax) packet [...] OG Tube $ Given 08/27/2021 9:03 PM [facility] 50 mg OG Tube $ Given 08/27/2021 12:25 PM [facility] 50 mg O G Tube QUEtiapine (SEROquel) [...] BEDTIME, First dose (after last modification) on [facility] 09/01/21 at 2100, Until Discontinued 222 ($ Given - Provider: Cristal Oden RN) 220 ($ Given - Provider: Cristal Oden RN) QUEtiapine (SEROquel) tablet 100 mg 100 mg, Oral, 2 TIMES DAILY, First dose (after last modification) on [facility] 09/01/21 at 2100, Until Discontinued 0841 ($ Given - Provider: Christine Randall RN)222 ($ Given - Provider: Cristal Oden RN) 0857 ($ Given - Provider: Christine Randall RN)220 ($ Given - Provider: Cristal Oden RN) 0909 ($ Given - Provider: Jerri Thomas RN) rifAXIMin (Xifaxan) tablet 550 mg 550 mg, Oral, 2 TIMES DAILY, First dose (after last modification) on [facility] 09/01/21 at 2100, Until Discontinued 0841 ($ Given - Provider: Christine Randall RN)222 ($ Given - Provider: Cristal Oden RN) 0856 ($ Given - Provider: Christine Randall RN)2201 ($ Given - Provider: Cristal Oden [...]
--- OUTSIDE RECORDS SUMMARY | 2024-06-27 10:29 | XMS_ITS | Encounter Summary ---
Author Organization [facility] Address [address] [place] [address] Care Team Providers Care Position Classification Specialist Name Role Phone Toni Ravi MD Primary Care Provider [phone] Jomar Noble MD Unavailable Encounter Details Date Type Department Care Team (Late st Contact Info) Description 10/24/2023 10:20 AM CDT Office Visit [facility] [address] [place] [address] [place] [phone] Migue Reeder MD [address] [place] [id number] Thrombocytopenia, secondary (Primary Dx); Abnormal results [...] for evaluation of the thrombocytopenia from her [facility]pc. Recent blood work there was noted to have a platelet count of 81 prior platelet counts have been low as well. 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 He had seizures was intubated and transferred to [facility] was treated with nicardipine complicated by pneumonia. He was then referred to long-term care facility. Is on several antidepressants and antiseizure medication Patient long-term facility [facility] resident accompanied by transportation caregiver not aware [...] thrombocytopenia and accompanied by his sister [place], [place] resident. Overall doing well. Currently on psych medications. Denies any increasing doses. Denies any EtOH use while in fpc. Past Medical History: Past Medical History: Diagnosis [...] results for input(s): LDH in the last 33473 hours. Latest Reference Range & Units 04/24/23 [...] [place] [address] with a mildly low white cell countof [...] On thiamine Xifaxamin Under GI at [facility] S/p recent EGD- grade 1 varices AFP- WNL has f/u in office and imaging planned. 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 Hematology/Oncology [facility] * Danae Cardoza RN - [...] Info) Description 08/25/2024 1:10 PM CDT Documentation [facility] [address] [place] [phone] 08/25/2024 1:20 PM CDT Office Visit [address] [address] Migue Reeder MD [address] [place] [phone] documented as of this encounter Procedures [...] Resulting Agency Comment Lab Testing performed at: [facility] [address] ??[facility] [phone] Migue Reeder MD LAB - CHEMISTRY MIGUEL GOLD [facility] INSURANCE BILL [address] [place] [address] * (ABNORMAL) COMPREHENSIVE METABOLIC PANEL (10/24/2023 10:30 [...] Resulting Agency Comment [facility] performed at: [facility] [address] ??[facility] [phone] Migue Reeder MD LAB - CHEMISTRY MIGUEL GOLD [facility] INSURANCE BILL [address] [place] [address] * (ABNORMAL) CBC W AUTO DIFFERENTIAL (CANCER [...] 10/24/2023 10:04 AM CDT SS CC [facility] MCV 94.2 80.7 - 98.3 fl 10/24/2023 10:04 AM CDT SS [facility] MCH 32.7 26.7 - 34.0 pg 10/24/2023 10:04 AM CDT SS CC LAB [facility] MCHC 34.7 30.8 - 35.9 gm/dL 10/24/2023 10:04 AM CDT [facility] CC LAB [facility] RDW-CV 14.5 12.1 - 14.9 % 10/24/2023 10:04 AM CDT [facility] CC LAB [facility] Platelet Count 76(L) 153 - 416 x10E9/L 10/24/2023 10:04 AM CDT [facility] CC LAB [facility] MPV 9.2(L) 9.4 - 12.9 fl 10/24/2023 10:04 AM CDT [facility] CC LAB [facility] Blood BLOOD SPECIMEN / Unknown 10/24/2023 9:55 AM CDT 10/24/2023 9:55 AM CDT Narrative [facility] CC LAB CCC - 10/24/2023 10:04 AM CDT Cancer Care protocol. Automated differential only. ??Manual differential performed upon provider's request. Thrombocytopenia Migue Reeder MD LAB - HEMATOLOGY ORD ERABLES [facility] [address] [place] [id number] documented in this encounter Visit Diagnoses Diagnosis Thrombocytopenia, secondary- Primary Other secondary thrombocytopenia Abnormal results of liver function studies Nonspecific abnormal results of liver function study Leukopenia, unspecified type documented in this encounter Additional Health Concerns Infection Onset Date Last Indicated Resolved Time 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 Care Teams Position Classification Specialist Relationship Specialty Start Date End Date Toni Ravi MD [address] [place] [address] PCP - General Internal Medicine 04/24/23 Jomar Noble MD [address] [address] Hospitalist Internal Medicine 04/24/23 documented as of this encounter
--- OUTSIDE RECORDS SUMMARY | 2024-06-27 10:29 | XMS_ITS | Encounter Summary ---
Author Organization [facility] Address [address] [facility] [place] [address] Care Team Providers Care Maintenance Director Name Role Phone Unavailable Primary Care Provider Unavailabl e Encounter Details Date Type Department Care Team (Latest Contact Info) Description 10/13/2021 11:00 AM CDT Office Visit [facility] [address] [facility] [place] [address] Arielle Ramey PA-C [address] [place] [address] [address] [place] [address] Nontraumatic intracerebral hemorrhage, unspecified cerebral [...] visit, please contact our nurse Alayna at [phone]. -Take your medications as prescribed. If you [...] agreeable todo so. He is currently at [facility] in [place] and he recommended calling there to schedule his procedure. His sister Sarah is a backup at [phone] Stroke mechanism:HTN 2/2 meth ingestion Modified Pettis Score:1 Diagnosis: I61.9 Nontraumatic intracerebral hemorrhage, unspecified [...] Description 08/25/2024 1:10 PM CDT Documentation [address] [address] 08/25/2024 1:20 PM CDT Office Visit [address] [address] Migue Reeder MD [address] [place] [phone] documented as of this encounter Visit Diagnoses Diagnosis Nontraumatic intracerebral hemorrhage, unspecified cerebral location, unspecified laterality (HCC)- Primary Seizures (HCC) Other convulsions Intentional drug overdose, sequela (HCC) documented in this encounter Additional Health Concerns Infection Onset Date Last Indicated Resolved Time 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
--- OUTSIDE RECORDS SUMMARY | 2024-06-27 10:29 | XMS_ITS | Encounter Summary ---
Author Organization [facility] Address [address] [facility] [place] [address] Care Team Providers Care Distributed Generation Project Manager Name Role Phone Unavailable Primary Care Provider Unavailabl e Reason for Visit * Radiology Services (Routine) - Closed Specialty Diagnoses / Procedures Referred By Contact Referred To Contact Interventional Radiology Diagnoses Cerebral atherosclerosis Procedures IR CAROTID CEREBRAL ANGIOGRAM Summer Villagomez MD [address] [place] [address] [facility] [address] [place] [address] Referral ID Status Reason Start Date Expiration Date Visits Re quested Visits Authorized [id number] Closed 11/07/2021 10/20/2022 1 1 Encounter Details Date Type Department Care Team (Latest Contact Info) Description 11/17/2021 7:49 AM CDT - 11/17/2021 1:39 PM CDT Hospital Encounter [facility] [address] [place] [address] Summer Villagomez MD [address] [place] [address] Vascular Surgery Discharge Disposition: Nursing [...] until fully healed Call Doctor: Please call [phone], and ask longwall shearer operator to page Dr. Arevalo If you [...] an urgent or severe problem: 1. Call ([phone]) and ask the longwall shearer operator to page/connect to the neurology or stroke resident oncology consultant. 2. Call the emergency room at . [...] Arm boards in place. Patient placed on cardiac specialist, blood pressure cuff, pulse ox, and ETCO2. [...] undergo a cerebral angiogram. She presented to [facility] in August 2021 with left parietal IPH. Etiology was thought to be due to HTN d/t suicide attempt after ingesting meth. CTA showed no underlying vascular abnormality. He lives in a shelter (due to his mental issues) and dependent [...] to evaluate for possible underlying vascular abnormality. Windows Mobile Developer: Rivera Villagomez Kohinoor Operator: Ida Arevalo Post-procedure mRS (modified kerry score)- [...] none Monitoring: Monitoring consisted of: heart rate, cardiac specialist, continuous pulse oximetry, continuous capnometry, frequent blood [...] Info) Description 08/25/2024 1:10 PM CDT Documentation [place] [id number] [facility] [address] [place] [phone] 08/25/2024 1:20 PM CDT Office Visit [facility] [address] [place] [address] [address] [place] [phone] Migue Reeder MD [address] [facility] [address] [place] [phone] documented as of this encounter Procedures Procedure [...] angiogram toevaluate for possible underlying vascular abnormality. Windows Mobile Developer: Rivera Villagomez Kohinoor Operator(s): Ida Arevalo Vessels: Ultrasound guided access of [...] patient evaluation, please review the evaluation in [facility]. For details on monitored clinical parameters during the intra-service sedation time, please review the procedure nurse documentation in [facility]. Procedural detail: The risks, benefits, and [...] Following a series of exchanges, a 5 Mexican Slender Glidesheath was placed in the right radial artery. Heparin 3,000 units, verapamil 2.5 mg and nitroglycerin 300 mcg were given through the sheath for vasospasm prophylaxis. A 5 Mexican Cain 2 catheter was navigated into the [...] angiogram toevaluate for possible underlying vascular abnormality. Windows Mobile Developer: Rivera Villagomez Kohinoor Operator(s): Ida Arevalo Vessels: Ultrasound guided access of [...] patient evaluation, please review the evaluation in [facility]. For details on monitored clinical parameters during the intra-servicesedation time, please review the procedure nurse documentation in [facility]. Procedural detail: The risks, benefits, and [...] documented. Following aseries of exchanges, a 5 Mexican Slender Glidesheath was placed in the right radial artery. Heparin 3,000 units, verapamil 2.5 mg and emncoprvzzlud239 mcg were given through the sheath for vasospasm prophylaxis. A 5 Mexican Cain 2 catheter was navigated into the [...] Villagomez MD IR ORDERABLES * (ABNORMAL) PT-INR [facility] (11/17/2021 8:23 AM CDT) PT 16.8(H) 12.1 - 14.8 Seconds 11/17/2021 8:[address] [facility] INR 1.4 See Comment 11/17/2021 8:54 AM CDT [facility] Comment:The suggested therap eutic range for standard coumadin (warfarin) therapy is an INR of 2.0-3.0. For high-risk patients (Mechanical Mitral Valve Prosthesis, etc.), the suggested prophylactic therapeutic range is an INR of 2.5-3.5. Blood BLOOD SPECIMEN / Unknown Venipuncture / Unknown 11/17/2021 8:23 AM CDT 11/17/2021 8:33 AM CDT Valdo Arevalo MD LAB - COAGULATION OR DERABLES [facility] [address] [address], [facility] [phone] * (ABNORMAL) CBC W AUTO DIFFERENTIAL (11/17/2021 8:23 AM CDT) WBC 4.5 3.5 - 10.5 10? 3 /uL 11/17/2021 8:38 AM [facility] RBC 4.01(L) 4.30 - 5.70 10? 6 /uL 11/17/2021 8:38 AM [facility] Hemoglobin 12.6 12.0 - 17.6 g/dL 11/17/2021 8:38 AM [facility] Hematocrit 37.9 35.2 - 51.7 % 11/17/2021 8:38 AM [facility] MCV 94.5 80.7 - 98.3 fL 11/17/2021 8:38 AM [facility] MCH 31.4 26.7 - 34.0 pg 11/17/2021 8:38 AM [facility] MCHC 33.2 30.8 - 35.9 g/dL 11/17/2021 8:38 AM [facility] Platelet Count 126(L) 150 - 400 10? 3 /uL 11/17/2021 8:38 AM [facility] RDW-SD 48.1 36.0 - 50.0 fL 11/17/2021 8:38 AM [facility] RDW-CV 13.9 11.2 - 14.8 % 11/17/2021 8:38 AM [facility] MPV 9.5 9.4 - 12.9 fL 11/17/2021 8:38 AM [facility] nRBC Absolute 0.00 0 10? 3 /uL 11/17/2021 8:38 AM [facility] nRBC Auto 0.0 0 /100 WBC 11/17/2021 8:38 AM [facility] Neutrophils % 64.4 35.0 - 70.0 % 11/17/2021 8:38 AM [facility] Lymphocytes % 19.1(L) 20.0 - 43.0 % 11/17/2021 8:38 AM [facility] Monocytes % 13.0 5.0 - 13.0 % 11/17/2021 8:38 AM [facility] Eosinophils % 2.2 0.0 - 6.0 % 11/17/2021 8:38 AM [facility] Basophil % 1.1 0.0 - 2.0 % 11/17/2021 8:38 AM [facility] Neutrophils Absolute 2.9 1.6 - 7.0 10? 3 /uL 11/17/2021 8:38 AM [facility] Lymphocyte Absolute 0.9(L) 1.1 - 3.9 10? 3 /uL 11/17/2021 8:38 AM [facility] Monocytes Absolute 0.58 0.26 - 1.07 10? 3 /uL 11/17/2021 8:38 AM [facility] Eosinophils Absolute 0.10 0.00 - 0.47 10? 3 /uL 11/17/2021 8:38 AM [facility] Basophils Absolute 0.05 0.00 - 0.08 10? 3 /uL 11/17/2021 8:38 AM [facility] Immature Granulocytes % 0.2 0.0 - 1.0 % 11/17/2021 8:38 AM [facility] Immature Granulocytes Absolute 0.01 11/17/2021 8:38 AM [facility] Blood BLOOD SPECIMEN / Unknown Venipuncture / Unknown 11/17/2021 8:23 AM CDT 11/17/2021 8:33 AM T Valdo Arevalo MD LAB - HEMATOLOGY ORD ERABLES [facility] [address] [place] [address], [facility] [phone] * (ABNORMAL) BASIC METABOLIC PANEL (CALCIUM TOTAL) (11/17/2021 8:23 AM CDT) BUN 9 7 - 26 mg/dL 11/17/2021 9:00 AM [facility] Creatinine 0.62(L) 0.71 - 1.16 mg/dL 11/17/2021 9:00 AM [facility] Sodium 141 136 - 145 mmol/L 11/17/2021 9:00 AM [facility] Potassium 4.1 3.5 - 4.5 mmol/L 11/17/2021 9:00 AM [facility] Chloride 112(H) 98 - 107 mmol/L 11/17/2021 9:00 AM [facility] CO2 23 22 - 29 mmol/L 11/17/2021 9:00 AM [facility] Glucose 134(H) 70 - 115 mg/dL 11/17/2021 9:00 AM [facility] Calcium 8.7 8.4 - 10.2 mg/dL 11/17/2021 9:00 AM [facility] Anion Gap 10 8 - 18 11/17/2021 9:00 AM [facility] BUN/Creatinine Ratio 15 7 - 23 11/17/2021 9:00 AM [facility] Osmolality Calculated 293 270 - 300 mOsm/kg 11/17/2021 9:00 AM [facility] eGFR by CKD-EPI >90 >=90 mL/min/1.7 3 m2 11/17/2021 9:00 AM [facility] Blood BLOOD SPECIMEN / Unknown Venipuncture / Unknown 11/17/2021 8:23 AM T 11/17/2021 8:33 AM [facility] [place] Valdo Arevalo MD LAB - CHEMISTRY MIGUEL GOLD [facility] Organization Address City/State/ZIP Co de Phone Number [facility] [address] [place] [phone], [facility] [phone] documented in this encounter Visit Diagnoses Diagnosis [...]
--- OUTSIDE RECORDS SUMMARY | 2024-06-27 10:30 | XMS_ITS | Encounter Summary ---
Author Organization [facility] Address [address] [facility] [place] [address] Care Team Providers Care Salesperson Flying Squad Name Role Phone Unavailable Primary Care Provider Unavailabl e Encounter Details Date Type Department Care Team (Late st Contact Info) Description 10/24/2018 Orders Only [facility] [address] [place] [address], [place] [phone] Maciel Greer MD [address] [place] [address] [place] [address] Other closed fracture of distal [...] Info) Description 08/25/2024 1:10 PM CDT Documentation [address] [place] [phone] 08/25/2024 1:20 PM CDT Office Visit [address] [place] [phone] Migue Reeder MD [address] [place] [address] [place] [phone] documented as of this encounter Results * XR WRIST LEFT 3VW OR MORE (10/28/2018 12:23 PM CDT) Anatomical Region Laterality Modality Wrist / Hand Radiographic Lynette ging 10/28/2018 1:15 PM CDT Impressions 10/28/2018 1:32 PM CDT IMPRESSION: Status post open reduction and internal fixation of a distal radius fracture unchanged in alignment. Report dictated by Keron Sánchez DO (sales consultant residential manager). I, Dr. EMIR [place] have personally reviewed [...] alignment. Report dictated by Keron Sánchez DO (sales consultant residential manager). I, Dr. EMIR HOPK[place] have personally reviewed [...]
--- OUTSIDE RECORDS SUMMARY | 2024-06-27 10:30 | XMS_ITS | Encounter Summary ---
Author Organization [facility] Address [address] [facility] [place] [address] Care Team Providers Care Informatica Developer Name Role Phone Unavailable Primary Care Provider Unavailabl e Encounter Details Date Type Department Care Team (Late st Contact Info) Description 11/19/2018 Orders Only [facility] [address] [place] [address], [place] [phone] Maciel Greer MD [address] [place] [address] [place] [address] Other closed fracture of distal [...] Info) Description 08/25/2024 1:10 PM CDT Documentation [facility] Cancer [address] [phone] 08/25/2024 1:20 PM CDT Office Visit [address] [phone] Migue Reeder MD [address] [place] [phone] documented as of this encounter Results * XR WRIST LEFT 3VW OR MORE (11/25/2018 10:14 AM CDT) Anatomical Region Laterality Modality Wrist / Hand Radiographic Lynette ging 11/25/2018 10:3 2 AM CDT Impressions 11/25/2018 10:43 AM CDT Impression: 1. Unchanged alignment of an internally fixated distal radial fracture. Dictated by Gefofrey Houser MD (Resident) I, Dr. PRANAY GUAMAN [...]
--- OUTSIDE RECORDS SUMMARY | 2024-06-27 10:30 | XMS_ITS | Encounter Summary ---
Author Organization [facility] Address [address] [facility] [place] [address] Care Team Providers Care Navy Material Inspector Name Role Phone Unavailable Primary Care Provider Unavailabl e Encounter Details Date Type Department Care Team (Latest Contact Info) Description 10/17/2018 5:58 PM CDT - 10/25/2018 10:45 AM CDT Hospital Encounter [address]rd [place] [address] [place] [address] [place] [address] [facility] Direct Discharge Disposition: Home [...] Info) Description 08/25/2024 1:10 PM CDT Documentation [facility] Cancer [address] [place] [phone] 08/25/2024 1:20 PM CDT Office Visit [address] [place] [phone] Migue Reeder MD [address] [place] [address] [place] [phone] documented as of this encounter Procedures Procedure [...] - 10.2 mg/dL 10/21/2018 6:50 AM CDT [facility] Anion Gap 6(L) 8 - 16 mmol/L 10/21/2018 6:50 AM CDT [facility] BUN 6(L) 8.9 - 20.6 mg/dL 10/21/2018 6:50 AM CDT [facility] Creatinine 0.58(L) 0.73 - 1.18 mg/dL 10/21/2018 6:50 AM CDT [facility] eGFR by MDRD >60 >60 mL/min/1.7 3m2 10/21/2018 6:50 AM CDT [facility] eGFR by MDRD >60 >60 mL/min/1.7 3m2 10/21/2018 6:50 AM CDT [facility] Blood BLOOD SPECIMEN / Unknown Lab Venipuncture / Unknown 10/21/2018 3:59 AM CDT 10/21/2018 6:[address] [facility] - 10/21/2018 6:50 AM CDT Attention clinician: BUN Reference Range has changed. Cordelia Ramey ASSISTANT WOMENS VOLLEYBALL COACH-MANAGER OF LOSS PREVENTION OPERATIONS LAB - CHEMISTR Y ORDERABLES [facility] [address] [place] [phone] * (ABNORMAL) CBC W AUTO DIFFERENTIAL (10/21/2018 3:59 AM CDT) WBC 6.0 4.4 - 10.7 x10E9/L 10/21/2018 6:27 AM CDT [facility] WBC Corrected x10E9/L 10/21/2018 6:27 AM CDT [facility] RBC 4.00 3.80 - 5.40 x10E12/L 10/21/2018 6:27 AM CDT [facility] Hemoglobin 11.2(L) 12.0 - 17.6 gm/dL 10/21/2018 6:27 AM CDT [facility] Hematocrit 36.1 35.2 - 51.7 % 10/21/2018 6:27 AM CDT [facility] MCV 90.3 80.7 - 98.3 fl 10/21/2018 6:27 AM CDT [facility] MCH 28.0 26.7 - 34.0 pg 10/21/2018 6:27 AM [facility] MCHC 31.0 30.8 - 35.9 gm/dL 10/21/2018 6:27 AM [facility] Platelet Count 340 153 - 416 x10E9/L 10/21/2018 6:27 AM [facility] RDW-CV 21.4(H) 12.1 - 14.9 % 10/21/2018 6:27 AM [facility] MPV 9.6 9.4 - 12.9 fl 10/21/2018 6:27 AM [facility] Neutrophils % 52.6 44.0 - 73.0 % 10/21/2018 6:27 AM [facility] Lymphocytes % 27.3 20.0 - 43.0 % 10/21/2018 6:27 AM [facility] Monocytes % 14.6(H) 5.0 - 13.0 % 10/21/2018 6:27 AM [facility] Eosinophils % 3.5 0.0 - 6.0 % 10/21/2018 6:27 AM [facility] Basophils % 1.8 0.0 - 2.0 % 10/21/2018 6:27 AM [facility] Immature Granulocytes 0.2 0 - 1 % 10/21/2018 6:27 AM [facility] Neutrophil Absolute 3.16 2.01 - 7.14 x10E9/L 10/21/2018 6:27 AM [facility] Lymphocytes Absolute 1.64 1.07 - 3.94 x10E9/L 10/21/2018 6:27 AM [facility] Monocytes Absolute 0.88 0.26 - 1.07 x10E9/L 10/21/2018 6:27 AM [facility] Eosinophils Absolute 0.21 0 - 0.47 x10E9/L 10/21/2018 6:27 AM [facility] Basophils Absolute 0.11(H) 0 - 0.08 x10E9/L 10/21/2018 6:27 AM [facility] Immature Granulocytes Absolute 0.01 0.00 - 0.06 x10E9/L 10/21/2018 6:27 AM [facility] nRBC Auto 0 /100 WBC 10/21/2018 6:27 AM CDT [facility] Blood BLOOD SPECIMEN / Unknown Lab Venipuncture / Unknown 10/21/2018 3:59 AM CDT 10/21/2018 6:15 AM CDT [facility] - HEMATOLO GY ORDERABLES Performing Organization Address [facility] de Phone Number [facility] [address] [place] [phone] * URINE MICROSCOPIC ONLY REFLEX TO CULTURE (10/18/2018 11:37 AM CDT) Reflex Status Culture not indicated 10/18/2018 12:28 PM CDT [facility] RBC UA 0-2 None Seen, 0-2, 3-5 # /hpf 10/18/2018 12:28 PM CDT [facility] WBC UA 0-5 None Seen, 0-5 # /hpf 10/18/2018 12:28 PM CDT [facility] Bacteria UA None Seen None Seen 10/18/2018 12:28 PM CDT [facility] Squamous Epithelial Cells None Seen None Seen, 0-2, 3-5 /hpf 10/18/2018 12:28 PM CDT [facility] Urine URINE SPECIMEN OBTAINED BY CLEAN CATCH PROCEDURE / Unknown Collection / Unknown 10/18/2018 11:37 AM CDT 10/18/2018 12:01 PM CDT Narrative [facility] - 10/18/2018 12:28 PM CDT Cordelia Ramey ASSISTANT WOMENS VOLLEYBALL [facility] - URINALYS IS ORDERABLES Performing Organization Address [facility] Co de Phone Number [facility] [address] [place] [address] [phone] * (ABNORMAL) COMPREHENSIVE METABOLIC PANEL (10/18/2018 5:42 AM CDT) Glucose 89 74 - 106 mg/dL 10/18/2018 6:36 AM CDT [facility] Sodium 137 136 - 145 mmol/L 10/18/2018 6:36 AM CDT [facility] Potassium 3.8 3.5 - 5.1 mmol/L 10/18/2018 6:36 AM CDT [facility] Chloride 105 98 - 107 mmol/L 10/18/2018 6:36 AM CDT [facility] CO2 26 23 - 31 mmol/L 10/18/2018 6:36 AM CDT [facility] Calcium 8.7 8.4 - 10.2 mg/dL 10/18/2018 6:36 AM CDT [facility] Anion Gap 6(L) 8 - 16 mmol/L 10/18/2018 6:36 AM CDT [facility] BUN 7(L) 8.9 - 20.6 mg/dL 10/18/2018 6:36 AM CDT [facility] Creatinine 0.53(L) 0.73 - 1.18 mg/dL 10/18/2018 6:36 AM CDT [facility] Alkaline Phosphatase 107 40 - 150 U/L 10/18/2018 6:36 AM CDT [facility] ALT 20 13 - 61 U/L 10/18/2018 6:36 AM CDT [facility] AST 84(H) 5 - 34 U/L 10/18/2018 6:36 AM CDT [facility] Protein Total 6.8 6.4 - 8.3 gm/dL 10/18/2018 6:36 AM CDT [facility] Albumin 2.6(L) 3.5 - 5.2 gm/dL 10/18/2018 6:36 AM CDT [facility] Bilirubin Total 1.1 0.2 - 1.2 mg/dL 10/18/2018 6:36 AM CDT [facility] eGFR by MDRD >60 >60 mL/min/1.7 3m2 10/18/2018 6:36 AM CDT [facility] eGFR by MDRD >60 >60 mL/min/1.7 3m2 10/18/2018 6:36 AM CDT [facility] Blood BLOOD SPECIMEN / Unknown Lab Venipuncture / Unknown 10/18/2018 5:42 AM CDT 10/18/2018 5:[address] [facility] - 10/18/2018 6:36 AM CDT Attention clinician: BUN Reference Range has changed. Usmanmagan Avelarelda ASSISTANT WOMENS VOLLEYBALL COACH-MANAGER OF LOSS PREVENTION OPERATIONS LAB - CHEMISTR Y ORDERABLES [facility] [address] [place] [address] * (ABNORMAL) CBC W AUTO DIFFERENTIAL (10/18/2018 5:42 AM CDT) [facility] WBC 5.9 4.4 - 10.7 x10E9/L 10/18/2018 6:03 AM CDT [facility] WBC Corrected x10E9/L 10/18/2018 6:03 AM CDT [facility] RBC 3.60(L) 3.80 - 5.40 x10E12/L 10/18/2018 6:03 AM CDT [facility] Hemoglobin 10.0(L) 12.0 - 17.6 gm/dL 10/18/2018 6:03 AM CDT [facility] Hematocrit 32.8(L) 35.2 - 51.7 % 10/18/2018 6:03 AM CDT [facility] MCV 91.1 80.7 - 98.3 fl 10/18/2018 6:03 AM CDT [facility] MCH 27.8 26.7 - 34.0 pg 10/18/2018 6:03 AM CDT [facility] MCHC 30.5(L) 30.8 - 35.9 gm/dL 10/18/2018 6:03 AM CDT [facility] Platelet Count 295 153 - 416 x10E9/L 10/18/2018 6:03 AM T [facility] RDW-CV 21.5(H) 12.1 - 14.9 % 10/18/2018 6:03 AM CDT [facility] MPV 9.6 9.4 - 12.9 fl 10/18/2018 6:03 AM CDT [facility] Neutrophils % 53.5 44.0 - 73.0 % 10/18/2018 6:03 AM CDT [facility] Lymphocytes % 25.4 20.0 - 43.0 % 10/18/2018 6:03 AM CDT [facility] Monocytes % 13.8(H) 5.0 - 13.0 % 10/18/2018 6:03 AM CDT [facility] Eosinophils % 4.9 0.0 - 6.0 % 10/18/2018 6:03 AM CDT [facility] Basophils % 1.7 0.0 - 2.0 % 10/18/2018 6:03 AM CDT [facility] Immature Granulocytes 0.7 0 - 1 % 10/18/2018 6:03 AM CDT [facility] Neutrophil Absolute 3.13 2.01 - 7.14 x10E9/L 10/18/2018 6:03 AM CDT [facility] Lymphocytes Absolute 1.49 1.07 - 3.94 x10E9/L 10/18/2018 6:03 AM CDT [facility] Monocytes Absolute 0.81 0.26 - 1.07 x10E9/L 10/18/2018 6:03 AM CDT [facility] Eosinophils Absolute 0.29 0 - 0.47 x10E9/L 10/18/2018 6:03 AM CDT [facility] Basophils Absolute 0.10(H) 0 - 0.08 x10E9/L 10/18/2018 6:03 AM CDT [facility] Immature Granulocytes Absolute 0.04 0.00 - 0.06 x10E9/L 10/18/2018 6:03 AM CDT [facility] nRBC Auto 0 /100 WBC 10/18/2018 6:03 AM T [facility] Blood BLOOD SPECIMEN / Unknown Lab Venipuncture / Unknown 10/18/2018 5:42 AM CDT 10/18/2018 5:49 AM CDT Cordelia Ramey ASSISTANT WOMENS [employer]LEYBALL COACH-MANAGER OF LOSS PREVENTION OPERATIONS LAB - HEMATOLO GY ORDERABLES [facility] [address] [place] [address] documented in this encounter Visit Diagnoses Not on filedocumented in this encounter
--- OUTSIDE RECORDS SUMMARY | 2024-06-27 10:30 | XMS_ITS | Encounter Summary ---
Author Organization [facility] Address [address] [facility] [place] [address] Care Team Providers Care Deputy Coroner Name Role Phone Unavailable Primary Care Provider Unavailabl e Encounter Details Date Type Department Care Team (Late st Contact Info) Description 01/02/2019 Orders Only [facility] [address] [place] [address], [place] [phone] Maciel Greer MD [address] [place] [address] [place] [address] Other closed fracture of distal [...] Info) Description 08/25/2024 1:10 PM CDT Documentation [address] [phone] 08/25/2024 1:20 PM CDT Office Visit [address] [phone] Migue Reeder MD [address] [place] [phone] documented as of this encounter Visit Diagnoses Diagnosis Other closed fracture of distal end of left radius with routine healing, subsequent encounter- Primary documented in this encounter
--- OUTSIDE RECORDS SUMMARY | 2024-06-27 10:30 | XMS_ITS | Encounter Summary ---
Author Organization [facility] Address [address] [facility] [place] [address] Care Team Providers Care Agricultural Education Instructor Name Role Phone Unavailable Primary Care Provider Unavailabl e Encounter Details Date Type Department Care Team (Late st Contact Info) Description 10/28/2018 11:45 AM CDT Office Visit [facility] - Orthopedics [address] [place] [address], [place] [phone] Maciel Greer MD [address] [place] [address] OF ORTHOPEDIC SURGERY [place], [place] [id number] Other closed fracture of distal end of [...] the clinic if you have any questions. [facility] Orthopaedic office contact information: [facility] [address] [place] [phone] Visit our website at [email or web address] for information about our practice and an interactive health encyclopedia. Please visit [email or web address] to access your health record, ask questions, request medication refills, and request appointments for non-urgent needs after you have configured your [employer] account. If you do not currently have access, please contact one of our staff members or call [phone]. For after hour emergencies, please call and press 0 for the special warfare operator in order to page the orthopedic resident finish production manager. documented in this encounter Progress Notes * Maciel Greer MD - 10/28/2018 12:54 PM CDT Orthopaedic Trauma Surgery Clinic Note Chester Dubose 48 year old male CSN: [id number] Date of service: 10/28/2018 HPI Chester Dubose [...] Info) Description 08/25/2024 1:10 PM CDT Documentation [address] [address] 08/25/2024 1:20 PM CDT Office Visit [address] [address] Migue Reeder MD [address] [facility] [address] [place] [address] documented as of this encounter Visit Diagnoses Diagnosis Other closed fracture of distal end of left radius with routine healing, subsequent encounter- Primary documented in this encounter
--- OUTSIDE RECORDS SUMMARY | 2024-06-27 10:30 | XMS_ITS | Encounter Summary ---
Author Organization [facility] Address [address] [facility] [place] [address] Care Team Providers Care Management Trainee Program Stores Name Role Phone Unavailable Primary Care Provider Unavailabl e Encounter Details Date Type Department Care Team (Late st Contact Info) Description 11/25/2018 10:03 AM CDT - 11/25/2018 11:59 PM CDT Hospital Encounter [facility] DIAGNOSTIC RAD [facility] [address] [facility] [place] [address] Maciel Greer MD [address] [facility] [place] [address] Discharge Disposition: Home or Self Care Social [...] Info) Description 08/25/2024 1:10 PM CDT Documentation [address] [address] 08/25/2024 1:20 PM CDT Office Visit [facility] [address] [facility] [address] [place] [address] Migue Reeder MD [address] [facility] [address] [place] [address] documented as of this encounter Procedures Procedure Name Priority Date/Time Associated Diagnosis Comments XR WRIST LEFT 3VW OR MORE Routine 11/25/2018 10:14 AM CDT Other closed fracture of distal end of left radius with routine healing, subsequent encounter documented in this encounter Results * XR WRIST LEFT 3VW OR MORE (11/25/2018 10:14 AM CDT) Anatomical Region Laterality Modality Wrist / Hand Radiographic Lyn[place] ging 11/25/2018 10:3 2 AM CDT Impressions [...]
--- OUTSIDE RECORDS SUMMARY | 2024-06-27 10:30 | XMS_ITS | Encounter Summary ---
Author Organization [facility] Address [address] [facility] [place] [address] Care Team Providers Care Tip Length Checker Name Role Phone Unavailable Primary Care Provider Unavailabl e Reason for Visit * Auth/Cert Specialty Diagnoses / Procedures Referred By Hoang t Referred To Contact Diagnoses Diagnosis unknown left distal radius fracture Procedures OPEN REDUCTION INTERNAL FIXATION (ORIF) WRIST/DISTAL RADIUS Referral ID Status Reason Start Date Expiration Date Visits Re quested Visits Authorized [id number] 1 1 Encounter Details Date Type Department Care Team (Late st Contact Info) Description 10/15/2018 10:37 AM CDT Anesthesia Event [facility] [address] [place] [phone] Ina Saunders MD [address] [facility] [place] [phone] Ashlee Christine Anes Asst [address] [facility] [place] [address] Anesthesia Record Procedure Summary Procedure Name Responsible [...] Event Date/Time: 10/15/2018 10:47 AM Procedure: intubation (08044). Procedure Section: Sedation: under general anesthesia. Indications [...] off 10/11/2018 and extubated; currently 6L per [place] -PIVsx2 -at this time, pt remains confused [...] dicussed the anesthesia plan w/ the Resident, PRODUCT DESIGN ENGINEER or AA and The pateint agrees with the plan and accpets the risks and benefits I attest to documenting, updating or reviewing a patient's current medications using all immediate resources available on the date of the encounter. This list must include ALL known prescriptions, dcps-pme-ptzunnrc, herbals, and vitamin/mineral/dietary (nutritional) supplements AND must [...] of ischemic heart disease? no History of PR History of positive stress test Current chest [...] 2 mg/dl? no RCRI correlation with MACE (www.mdcalc.com/nvdysox-uvzbshi-ummk-ngkdx-oxb-omwrahser-risk, originally validated by [employer]. 1999;100:8410-5292) 0 Points - 0.4% risk 1 Point [...] place interrogation report in chart Information needed (raisin washer, mode, indication for CIED, battery life, magnet function, PM dependence): Call PAT director or tank pumper panelboard to discuss any patient with a CIED Timing of interrogation should be: Within 1 year for PM and Within 6 months for AICD (Source: 2010 The Heart Rhythm Society (HRS)/[place] Society of Anesthesiologists (ASA) Expert Consensus Statement [...] which blood bank will automatically send to [facility]. [facility] requires a 2nd confirmatory T&S before releasing crossmatched blood) Previous blood transfusion? no - If patient had a previous transfusion and likelihood of surgical blood loss is >250ml or a high risk procedure, then every attempt should be made to obtain a T&S in PAT, otherwise patient should be instructed to arrive early or not scheduled as a first start case. Please call anesthesia technician to discuss plan and document here: Patients [...] patients with DM, refer to PCP or passementerie worker for BG >200 - CMP (instead of [...] Info) Description 08/25/2024 1:10 PM CDT Documentation [address] [address] 08/25/2024 1:20 PM CDT Office Visit [facility] [address] [facility] [address] [place] [address] Migue Reeder MD [address] [facility] [address] [place] [address] documented as of this encounter Procedures Procedure Name Priority Date/Time Associated Diagnosis Comments ENDOTRACHEAL TUBE NOTE Routine 10/15/2018 11:06 AM CDT Procedure Note - Ashlee Christine Anes Asst - 10/15/2018 11:05 AM CDTThis note is in progress. Endotracheal Tube Placement: Patient Location: OR. Intubation Event Date/Time: 10/15/2018 10:47 AM Procedure: intubation (82516). Procedure Section: Sedation: under general anesthesia. Indications [...]
--- OUTSIDE RECORDS SUMMARY | 2024-06-27 10:30 | XMS_ITS | Encounter Summary ---
Author Organization [facility] Address [address] [place] [address] Care Team Providers Care Shooter Helper Name Role Phone Unavailable Primary Care Provider Unavailabl e Encounter Details Date Type Department Care Team (Latest Contact Info) Description 10/17/2018 6:02 PM CDT - 10/25/2018 10:45 AM CDT Hospital Encounter [address] 3rd [place] [address] [place] [address] [place] [address] General Rehabilitation Discharge Disposition: Home [...] HOME HEALTH CARE Home Care consult noted. [facility] is not able to accept due to staffing in [place]. Referral has been set up with [facility], SOC most likely will be on Sunday. Marlyn Kim LPN Hospital Printing Grey Cloth Tender [facility] at Home [phone] After 4:30 or over the weekend call [phone] option 1 documented in this encounter Plan of Treatment Upcoming Encounters Date Type Department Care Team (Late st Contact Info) Description 08/25/2024 1:10 PM CDT Documentation [address] [address] 08/25/2024 1:20 PM CDT Office Visit [address] [address] Migue Reeder MD [address] [place] [address] documented as of this encounter Visit Diagnoses Not on filedocumented in this encounter
--- OUTSIDE RECORDS SUMMARY | 2024-06-27 10:30 | XMS_ITS | Encounter Summary ---
Author Organization [facility] Address [address] [place] [address] Care Team Providers Care Metal Annealer Name Role Phone Unavailable Primary Care Provider Unavailabl e Encounter Details Date Type Department Care Team (Late st Contact Info) Description 10/28/2018 12:14 PM CDT - 10/28/2018 11:59 PM CDT Hospital Encounter [facility] DIAGNOSTIC RAD [facility] [address]L [address] [facility] [place] [phone] Maciel Greer MD [address] [facility] [place] [address] Discharge Disposition: Home or Self Care Social [...] 1:10 PM CDT Documentation [facility] [address] [facility] [address] [place] [address] 08/25/2024 1:20 PM CDT Office Visit [facility] [address] [facility] [address] [place] [address] Migue Reeder MD [address] [facility] [address] [place] [address] documented as of this encounter Procedures Procedure [...] alignment. Report dictated by Keron Sánchez DO (resident care director). I, Dr. EMIR HOPKINS have personally reviewed [...] alignment. Report dictated by Keron Sánchez DO (resident care director). I, Dr. EMIR HOPKINS have personally reviewed and interpreted this examination/study. This report was electronically signed by EMIR HOPKINS on 10/28/2018 1:32 PM . Maciel Greer MD DIAGNOSTIC IMAGING ORDERABLES documented in this encounter Visit Diagnoses Diagnosis Other closed fracture of distal end of left radius with routine healing, subsequent encounter documented in this encounter
--- OUTSIDE RECORDS SUMMARY | 2024-06-27 10:30 | XMS_ITS | Encounter Summary ---
Author Organization [facility] Address [address] [facility] [place] [address] Care Team Providers Care Sales And Distribution Clerk Name Role Phone Unavailable Primary Care Provider Unavailabl e Reason for Visit * Evaluate & Treat (Routine) - Closed Specialty Diagnoses / Procedures Referred By Hoang leroy Referred To Contact Orthopedic Surgery / Orthopedics [address] [address] Maciel Greer MD [address] [place] [address] [place] [address] Referral ID Status Reason Start Date Expiration Date Visits Re quested Visits Authorized [id number] Closed 11/25/2018 05/24/2019 1 1 Encounter Details Date Type Department Care Team (Late st Contact Info) Description 11/25/2018 10:15 AM CDT Office Visit [facility] Orthopedics [address] [place] [address], [place] [address] Maciel Greer MD [address] [place] [address] [place] [address] Other closed fracture of distal [...] the clinic if you have any questions. [facility] Orthopaedic office contact information: [facility] , option 2 then option 1 for EDIE [address]ver[address] [place] [address] Visit our website at [email or web address] for information about our practice and an interactive health encyclopedia. Please visit [employer] to access your health record, ask questions, request medication refills, and request appointments for non-urgent needs after you have configured your [employer] account. If you do not currently have access, please contact one of our staff members or call [phone]. For after hour emergencies, please call and press 0 for the unisaw operator in order to page the orthopedic resident pipe production worker. Cigarette Smoking and Your Health ELEVATED GUARD: Risks to your health if you smoke: [...] stop smoking: ?? Smokefree.gov Phone: Web Address: www.[employer].gov Follow up with your healthcare provider as directed: Write down your questions so you remember to ask them during your visits. ?? Copyright [employer] 2019 Information is for End User's use only and may not be sold, redistributed or otherwise used for commercial purposes. All illustrations and images included in CareNotes?? are the copyrighted property of [employer] or [employer] The above information is an welfare service aide only. It is not intended as medical [...] Jr Sedrick 48 year old male CSN: [id number] Date of service: 11/25/2018 [facility] Chester C Jr Dubose is a RHD [...] unable to work Prescriptions: acetaminophen and NSAIDs Dog Behaviorist Vitamin D and calcium DVT ppx: none [...] Info) Description 08/25/2024 1:10 PM CDT Documentation [address] [phone] 08/25/2024 1:20 PM CDT Office Visit [address] [phone] Migue Reeder MD [address] [place] [address] documented as of this encounter Visit Diagnoses Diagnosis Other closed fracture of distal end of left radius with routine healing, subsequent encounter- Primary documented in this encounter
--- OUTSIDE RECORDS SUMMARY | 2024-06-27 10:30 | XMS_ITS | Encounter Summary ---
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 vent, trauma Fluid (ml): 1 ml/kcal Needs based on: [place] Recommended Access Route: TF Pertinent Nutrition [...] PRS for any questions/concerns. Clinic contact information: [phone] Patient discussed with chief resident, Dr. Griffith. Keron Graves MD Plastic Surgery Resident, PGY-1 9:47 PM Nights (5pm-7am) and weekends, please call [phone] and ask the handbag operator to page the plastic surgery resident application development consultant. * Chema Beard MD - 10/02/2018 5:52 [...] 2 mg, Intravenous, Once ?? [COMPLETED] Tdap (swlmlof-ozzoojemdk-zoayd pertussis) (BOOSTRIX) (7y+) injection 0.5 mL, Intramuscular, [...] improved and if still experiencing double vision [phone], [address] Jhon Saravia MD Ophthalmology PGY-2 I have reviewed the resident note and agree with the assessment and plan. Soft tissue trauma without orbital fracture, globe trauma, or ON trauma. Follow up in clinic for re-evaluation. Chema Beard MD * Yusuf Velasco MD - 10/02/2018 5:43 PM CDT [facility] Orthopaedic Surgery Consult Jared Sainz 48 year [...] distal radius fracture. SURGEON: Maciel Greer M.D. MORTGAGE PROCESSOR SURGEON: Dr. Nilson Boo and Montrell Baxter. [...] radius fracture line was reduced with a ibhpq-ph-iscis clamp. Radiographs confirmed this reduction. We were [...] and sponge counts were correct. MD GER [id number] Doc ID: [id number] Voice Job ID: [id number] * Brief Op Note - Maciel Greer [...] Assisting * Nilson Boo DO - Fellow Subeditor(s): Anesthesia Type: general Complications: none Findings: volar [...] not screen for Propoxyphene, Meprobamate, Carisoprodol, Trazodone, yvsr-geb-jwwhrja medications and/or volatiles (Acetone, Isopropanol, Methanol or Ethylene Glycol). Ethanol, Salicylate, Acetaminophen, Tricyclic Antidepressants and several therapeutic drugsmay be individually assayed in serum or plasma specimen. Toxicology testing by the [facility] is an aid to medical [...] hypertension. Dictated by Serena Syed MD (residential installer). I, Dr. GITA FOREMAN M.D. have personally [...] lumbar spine. [facility] on 10/03/2018 10:26 AM . IDr. ALY [...] lumbar spine. This [facility] was [facility] on 10/03/2018 10:26 AM . I, [...] spine. This report was approved by [facility] on 10/03/2018 10:26 AM . IDr. ALY [...] encounter: Orders Placed This Encounter ??? COLLAR BELKOFSKI J STD ??? XR CHEST 1VW PORTABLE [...] ??? RBC MORPHOLOGY ??? IP CONSULT TO LIAISON OFFICER ??? IP CONSULT TO OPHTHALMOLOGY ??? IP CONSULT TO ORTHOPEDIC SURGERY ??? IP CONSULT TO PLASTIC SURGERY ??? O2 SAT PARAMETERS ??? OXYGEN - NASAL CANNULA ??? EKG 12-LEAD ??? 0.9% NaCl infusion ??? 0.9% NaCl IV Bolus ??? DISCONTD: iopamidol (ISOVUE 370) 76 % contrast ??? iopamidol (ISOVUE 370) 76 % contrast ??? Tdap (hesjbon-wugectqawl-ypeet pertussis) (BOOSTRIX) (7y+) injection 0.5 mL ??? [...] (0 mL Intravenous Stopped 10/02/18 1845) Tdap (udzvsoe-iiuevwdewx-ksrxs pertussis) (BOOSTRIX) (7y+) injection 0.5 mL (0.5 [...] the author of the discharge summary, Natalie MELAAR. Thank you, SARITHA Degroot [phone] * Coding Query - Juancho Rhodes MD [...] Description 08/25/2024 1:10 PM CDT Documentation [facility] [address] [address] 08/25/2024 1:20 PM CDT Office Visit [address] [address] Migue Reeder MD [address] [place] [address] [phone] documented as of this encounter Procedures Procedure [...] Estimate Adequate Adequate 019 4:55 AM CDT [facility] Anisocytosis 1+(A) None 10/17/2018 4:55 AM CDT [facility] Poikilocytes Few(A) None 10/17/2018 4:55 AM CDT [facility] Macrocytosis Few(A) None 10/17/2018 4:55 AM CDT [facility] Hypochromia 1+(A) None 10/17/2018 4:[address] [facility] Polychromasia Rare(A) None 10/17/2018 4:55 AM CDT [facility] Target Cells Rare(A) None 10/17/2018 4:55 AM CDT [facility] Blood BLOOD SPECIMEN / Unknown Lab Venipuncture / Unknown 10/17/2018 4:00 AM CDT 10/17/2018 4:03 AM CDT Juancho Rhodes MD LAB - HEMATOLOGY ORD ERABLES Performing Organization Address [facility]/State/ZIP Co de Phone Number [address] [phone] * PHOSPHORUS BLOOD (10/17/2018 4:00 AM CDT) Pathologist [facility] Phosphorus 2.8 2.3 - 4.7 mg/dL 10/17/2018 4:33 AM CDT [facility] Blood BLOOD SPECIMEN / Unknown Lab Venipuncture / Unknown 10/17/2018 4:00 AM CDT 10/17/2018 4:04 AM CDT Juancho Rhodes MD LAB - CHEMISTRY MIGUEL GOLD Performing Organization Address [facility]/ZIP Co de Phone Number [address] [phone] * MAGNESIUM BLOOD (10/17/2018 4:00 AM CDT) Pathologist [facility] Magnesium 1.6 1.6 - 2.6 mg/dL 10/17/2018 4:33 AM CDT [facility] Blood BLOOD SPECIMEN / Unknown Lab Venipuncture / Unknown 10/17/2018 4:00 AM CDT 10/17/2018 4:04 AM CDT Juancho Rhodes MD LAB - CHEMISTRY MIGUEL GOLD Performing Organization Address [facility]/ZIP Co de Phone Number [address] [phone] * (ABNORMAL) CBC W AUTO DIFFERENTIAL (10/17/2018 4:00 AM CDT) WBC 8.6 3.5 - 10.5 10? 3 /uL 10/17/2018 4:11 AM CDT [facility] RBC 3.60(L) 4.30 - 5.70 10? 6 /uL 10/17/2018 4:11 AM CDT [facility] Hemoglobin 10.2(L) 13.5 - 17.5 g/dL 10/17/2018 4:11 AM CDT [facility] Hematocrit 32.3(L) 39.0 - 50.0 % 10/17/2018 4:11 AM [facility] MCV 89.7 81.0 - 97.0 fL 10/17/2018 4:11 AM [facility] MCH 28.3 28.0 - 34.0 pg 10/17/2018 4:11 AM [facility] MCHC 31.6(L) 32.0 - 36.0 g/dL 10/17/2018 4:11 AM [facility] Platelet Count 277 150 - 400 10? 3 /uL 10/17/2018 4:11 AM [facility] RDW-SD 71.9(H) 36.0 - 50.0 fL 10/17/2018 4:11 AM [facility] RDW-CV 21.6(H) 11.2 - 14.8 % 10/17/2018 4:11 AM [facility] MPV 9.5 9.3 - 12.8 fL 10/17/2018 4:11 AM [facility] nRBC Absolute 0.00 0 10? 3 /uL 10/17/2018 4:11 AM [facility] nRBC Auto 0.0 0 /100 WBC 10/17/2018 4:11 AM [facility] Neutrophils % 66.8 35.0 - 70.0 % 10/17/2018 4:11 AM [facility] Lymphocytes % 18.4(L) 19.7 - 55.1 % 10/17/2018 4:11 AM [facility] Monocytes % 11.1 3.0 - 15.0 % 10/17/2018 4:11 AM [facility] Eosinophils % 2.3 0.0 - 6.0 % 10/17/2018 4:11 AM [facility] Basophil % 0.9 0.0 - 1.5 % 10/17/2018 4:11 AM [facility] Neutrophils Absolute 5.7 1.6 - 7.0 10? 3 /uL 10/17/2018 4:11 AM [facility] Lymphocyte Absolute 1.6 0.8 - 2.9 10? 3 /uL 10/17/2018 4:11 AM [facility] Monocytes Absolute 0.95(H) 0.14 - 0.66 10? 3 /uL 10/17/2018 4:11 AM [facility] Eosinophils Absolute 0.20 0.00 - 0.45 10? 3 /uL 10/17/2018 4:11 AM [facility] Basophils Absolute 0.08(H) 0.00 - 0.06 10? 3 /uL 10/17/2018 4:11 AM [facility] Immature Granulocytes % 0.5 0.0 - 1.0 % 10/17/2018 4:11 AM [facility] Blood BLOOD SPECIMEN / Unknown Lab Venipuncture / Unknown 10/17/2018 4:00 AM CDT 10/17/2018 4:03 AM T Juancho Rhodes MD LAB - HEMATOLOGY ORD ERABLES [facility] [address] [place] [address] * (ABNORMAL) BASIC METABOLIC PANEL (CALCIUM TOTAL) (10/17/2018 4:00 AM T) BUN 5(L) 7 - 26 mg/dL 10/17/2018 4:33 AM [facility] Creatinine 0.6 0.6 - 1.2 mg/dL 10/17/2018 4:33 AM [facility] Sodium 138 136 - 145 mmol/L 10/17/2018 4:33 AM [facility] Potassium 3.6 3.5 - 4.5 mmol/L 10/17/2018 4:33 AM [facility] Chloride 106 98 - 107 mmol/L 10/17/2018 4:33 AM [facility] CO2 22 22 - 29 mmol/L 10/17/2018 4:33 AM [facility] Glucose 143(H) 70 - 115 mg/dL 10/17/2018 4:33 AM [facility] Calcium 8.1(L) 8.4 - 10.2 mg/dL 10/17/2018 4:33 AM [facility] Anion Gap 14 8 - 18 10/17/2018 4:33 AM [facility] BUN/Creatinine Ratio 8 7 - 23 10/17/2018 4:33 AM CDT [facility] Osmolality Calculated 286 270 - 300 mOsm/kg 10/17/2018 4:33 AM CDT [facility] eGFR >60 >60 mL/min/1.7 3 m2 10/17/2018 4:33 AM T [facility] Blood BLOOD SPECIMEN / Unknown Lab Venipuncture / Unknown 10/17/2018 4:00 AM CDT 10/17/2018 4:04 AM CDT Juancho Rhodes MD LAB - CHEMISTRY ORDE RABLES Performing Organization Address City/[facility]/ZIP Co de Phone Number [address] [phone] * (ABNORMAL) RBC MORPHOLOGY (10/16/2018 6:54 AM CDT) Platelet Estimate Adequate Adequate 019 7:36 AM T [facility] Anisocytosis 1+(A) None 10/16/2018 7:36 AM [facility] Hypochromia Rare(A) None 10/16/2018 7:36 AM [facility] Polychromasia Occasional( A) None 10/16/2018 7:36 AM [facility] Target Cells Occasional( A) None 10/16/2018 7:36 AM [facility] Blood BLOOD SPECIMEN / Unknown Lab Venipuncture / Unknown 10/16/2018 6:54 AM CDT 10/16/2018 7:07 AM CDT Juancho Rhodes MD LAB - HEMATOLOGY ORD ERABLES [address] [phone] * PHOSPHORUS BLOOD (10/16/2018 6:54 AM CDT) Phosphorus 2.4 2.3 - 4.7 mg/dL 10/16/2018 7:29 AM T [facility] Blood BLOOD SPECIMEN / Unknown Lab Venipuncture / Unknown 10/16/2018 6:54 AM CDT 10/16/2018 7:07 AM CDT Juancho Rhodes MD LAB - CHEMISTRY MIGUEL GOLD Performing Organization Address [facility]/ZIP Co de Phone Number [address] [phone] * (ABNORMAL) MAGNESIUM BLOOD (10/16/2018 6:54 AM CDT) Magnesium 1.5(L) 1.6 - 2.6 mg/dL 10/16/2018 7:29 AM [facility] Blood BLOOD SPECIMEN / Unknown Lab Venipuncture / Unknown 10/16/2018 6:54 AM CDT 10/16/2018 7:07 AM CDT Juancho Rhodes MD LAB - CHEMISTRY MIGUEL GOLD Performing Organization Address [facility]/ZIP Co de Phone Number [address] [phone] * (ABNORMAL) CBC W AUTO DIFFERENTIAL (10/16/2018 6:54 AM CDT) WBC 10.7(H) 3.5 - 10.5 10? 3 /uL 10/16/2018 7:20 AM [facility] RBC 3.62(L) 4.30 - 5.70 10? 6 /uL 10/16/2018 7:20 AM [facility] Hemoglobin 10.0(L) 13.5 - 17.5 g/dL 10/16/2018 7:20 AM [facility] Hematocrit 32.6(L) 39.0 - 50.0 % 10/16/2018 7:20 AM [facility] MCV 90.1 81.0 - 97.0 fL 10/16/2018 7:20 AM [facility] MCH 27.6(L) 28.0 - 34.0 pg 10/16/2018 7:20 AM [facility] MCHC 30.7(L) 32.0 - 36.0 g/dL 10/16/2018 7:20 AM [facility] Platelet Count 278 150 - 400 10? 3 /uL 10/16/2018 7:20 AM [facility] RDW-SD 71.2(H) 36.0 - 50.0 fL 10/16/2018 7:20 AM [facility] RDW-CV 21.7(H) 11.2 - 14.8 % 10/16/2018 7:20 AM [facility] MPV 9.2(L) 9.3 - 12.8 fL 10/16/2018 7:20 AM [facility] nRBC Absolute 0.00 0 10? 3 /uL 10/16/2018 7:20 AM [facility] nRBC Auto 0.0 0 /100 WBC 10/16/2018 7:20 AM [facility] Neutrophils % 74.2(H) 35.0 - 70.0 % 10/16/2018 7:20 AM [facility] Lymphocytes % 9.9(L) 19.7 - 55.1 % 10/16/2018 7:20 AM [facility] Monocytes % 13.1 3.0 - 15.0 % 10/16/2018 7:20 AM [facility] Eosinophils % 1.4 0.0 - 6.0 % 10/16/2018 7:20 AM [facility] Basophil % 0.9 0.0 - 1.5 % 10/16/2018 7:20 AM [facility] Neutrophils Absolute 8.0(H) 1.6 - 7.0 10? 3 /uL 10/16/2018 7:20 AM [facility] Lymphocyte Absolute 1.1 0.8 - 2.9 10? 3 /uL 10/16/2018 7:20 AM [facility] Monocytes Absolute 1.41(H) 0.14 - 0.66 10? 3 /uL 10/16/2018 7:20 AM [facility] Eosinophils Absolute 0.15 0.00 - 0.45 10? 3 /uL 10/16/2018 7:20 AM [facility] Basophils Absolute 0.10(H) 0.00 - 0.06 10? 3 /uL 10/16/2018 7:20 AM [facility] Immature Granulocytes % 0.5 0.0 - 1.0 % 10/16/2018 7:20 AM [facility] Blood BLOOD SPECIMEN / Unknown Lab Venipuncture / Unknown 10/16/2018 6:54 AM CDT 10/16/2018 7:07 AM CDT Juancho Rhodes MD LAB - HEMATOLOGY ORD ERABLES [facility] [address] [place] [address] * (ABNORMAL) BASIC METABOLIC PANEL (CALCIUM TOTAL) (10/16/2018 6:54 AM CDT) BUN 3(L) 7 - 26 mg/dL 10/16/2018 7:29 AM [facility] Creatinine 0.5(L) 0.6 - 1.2 mg/dL 10/16/2018 7:29 AM [facility] Sodium 135(L) 136 - 145 mmol/L 10/16/2018 7:29 AM [facility] Potassium 3.9 3.5 - 4.5 mmol/L 10/16/2018 7:29 AM [facility] Chloride 105 98 - 107 mmol/L 10/16/2018 7:29 AM [facility] CO2 24 22 - 29 mmol/L 10/16/2018 7:29 AM [facility] Glucose 117(H) 70 - 115 mg/dL 10/16/2018 7:29 AM [facility] Calcium 8.0(L) 8.4 - 10.2 mg/dL 10/16/2018 7:29 AM [facility] Anion Gap 10 8 - 18 10/16/2018 7:29 AM [facility] BUN/Creatinine Ratio 6(L) 7 - 23 10/16/2018 7:29 AM [facility] Osmolality Calculated 278 270 - 300 mOsm/kg 10/16/2018 7:29 AM [facility] eGFR >60 >60 mL/min/1.7 3 m2 10/16/2018 7:29 AM [facility] Blood BLOOD SPECIMEN / Unknown Lab Venipuncture / Unknown 10/16/2018 6:54 AM CDT 10/16/2018 7:07 AM CDT Juancho Rhodes MD LAB - CHEMISTRY MIGUEL GOLD Performing Organization Address [facility]/ZIP Co de Phone Number [address] [phone] * (ABNORMAL) GLUCOSE - POINT OF CARE (10/15/2018 10:09 PM CDT) Glucose WB/POC 129(H) 70 - 115 mg/dL 10/15/2018 10:[address] [facility] Specimen Type Arterial/C apillary 10/15/2018 10:12 PM CDT [facility] Blood BLOOD SPECIMEN / Unknown 10/15/2018 10:09 PM CDT 10/15/2018 10:12 PM CDT Narrative [facility] - 10/15/2018 10:12 PM CDT [employer]AUR[employer] K[employer]EN AND SERVICE MANAGER: KELBY ?JORDY Paul De Paz MD LAB - POINT OF CARE ORDERABLES Performing Organization Address [facility] Co de Phone Number [address] [phone] * XR WRIST LEFT 2VW (10/15/2018 3:16 [...] CALI SURGERY (10/15/2018 1:02 PM CDT) Narrative [facility] - 10/15/2018 1:02 PM CDT Fluoroscopy was used for this exam in the OR. Please see the Operative report. Maciel Greer MD FLUOROSCOPY ORDERA BLES Performing Organization Address [facility] Co de Phone Number [facility] * EKG 12-LEAD (10/15/2018 8:33 AM CDT) Ventricular Rate 103 BPM [facility] Atrial Rate [address] [facility] MUSE P-R Interval 136 ms H MUSE QRS Duration ms 76 ms [facility] Q-T Interval ms 386 ms [facility] QTC Calculation (Bezet) 505 ms [facility] Calculated P [place] 38 degrees [facility] Calculated R [place] 71 degrees [facility] Calculated T [place] 37 degrees [facility] MUSE Interpretation EKG SINUS TACHYCARDIA OTHERWISE NORMAL ECG WHEN COMPARED WITH ECG OF 10-OCT-2018 16:26, VENT. RATE HAS INCREASED by 39bpm Confirmed by Wesley WOODS, DANISH ([id number]), videotape editor Carmela Galeano ([id number]) on 11/26/2018 8:49:[address] [facility] MUSE 10/15/2018 8:33 AM CDT 11/26/2018 8:49 PM CDT Emmanuelle Adams MANAGER [facility] ECG ORDERABLES Performing Organization Address [facility] Co de Phone Number [facility] * (ABNORMAL) RBC MORPHOLOGY (10/15/2018 4:54 AM CDT) Anisocytosis 1+(A) None 10/15/2018 6:49 AM CDT [facility] Polychromasia Occasional (A) None 10/15/2018 6:49 AM CDT [facility] Target Cells 1+(A) None 10/15/2018 6:49 AM CDT [facility] Blood BLOOD SPECIMEN / Unknown Lab Venipuncture / Unknown 10/15/2018 4:54 AM CDT 10/15/2018 5:15 AM CDT Juancho Rhodes MD LAB - HEMATOLOGY ORD ASHLEY [address] [phone] * PHOSPHORUS BLOOD (10/15/2018 4:54 AM CDT) Phosphorus 3.0 2.3 - 4.7 mg/dL 10/15/2018 5:34 AM CDT [facility] Blood BLOOD SPECIMEN / Unknown Lab Venipuncture / Unknown 10/15/2018 4:54 AM CDT 10/15/2018 5:15 AM CDT Juancho Rhodes MD LAB - CHEMISTRY MIGUEL GOLD [address] [phone] * (ABNORMAL) MAGNESIUM BLOOD (10/15/2018 4:54 AM CDT) Magnesium 1.5(L) 1.6 - 2.6 mg/dL 10/15/2018 5:34 AM CDT [facility] Blood BLOOD SPECIMEN / Unknown Lab Venipuncture / Unknown 10/15/2018 4:54 AM CDT 10/15/2018 5:15 AM CDT Juancho Rhodes MD LAB - CHEMISTRY MIGUEL GOLD [address] [phone] * (ABNORMAL) CBC W AUTO DIFFERENTIAL (10/15/2018 4:54 AM [facility]) WBC 9.2 3.5 - 10.5 10? 3 /uL 10/15/2018 5:21 AM [facility] RBC 3.58(L) 4.30 - 5.70 10? 6 /uL 10/15/2018 5:21 AM [facility] Hemoglobin 10.0(L) 13.5 - 17.5 g/dL 10/15/2018 5:21 AM [facility] Hematocrit 31.8(L) 39.0 - 50.0 % 10/15/2018 5:21 AM [facility] MCV 88.8 81.0 - 97.0 fL 10/15/2018 5:21 AM [facility] MCH 27.9(L) 28.0 - 34.0 pg 10/15/2018 5:21 AM [facility] MCHC 31.4(L) 32.0 - 36.0 g/dL 10/15/2018 5:21 AM [facility] Platelet Count 316 150 - 400 10? 3 /uL 10/15/2018 5:21 AM [facility] RDW-SD 72.4(H) 36.0 - 50.0 fL 10/15/2018 5:21 AM [facility] RDW-CV 22.5(H) 11.2 - 14.8 % 10/15/2018 5:21 AM [facility] MPV 9.5 9.3 - 12.8 fL 10/15/2018 5:21 AM [facility] nRBC Absolute 0.00 0 10? 3 /uL 10/15/2018 5:21 AM [facility] nRBC Auto 0.0 0 /100 WBC 10/15/2018 5:21 AM [facility] Neutrophils % 63.9 35.0 - 70.0 % 10/15/2018 5:21 AM [facility] Lymphocytes % 17.0(L) 19.7 - 55.1 % 10/15/2018 5:21 AM [facility] Monocytes % 15.7(H) 3.0 - 15.0 % 10/15/2018 5:21 AM CDT [facility] Eosinophils % 1.7 0.0 - 6.0 % 10/15/2018 5:21 AM T [facility] Basophil % 1.4 0.0 - 1.5 % 10/15/2018 5:21 AM T [facility] Neutrophils Absolute 5.9 1.6 - 7.0 10? 3 /uL 10/15/2018 5:21 AM T [facility] Lymphocyte Absolute 1.6 0.8 - 2.9 10? 3 /uL 10/15/2018 5:21 AM T [facility] Monocytes Absolute 1.44(H) 0.14 - 0.66 10? 3 /uL 10/15/2018 5:21 AM T [facility] Eosinophils Absolute 0.16 0.00 - 0.45 10? 3 /uL 10/15/2018 5:21 AM [facility] Basophils Absolute 0.13(H) 0.00 - 0.06 10? 3 /uL 10/15/2018 5:21 AM [facility] Immature Granulocytes % 0.3 0.0 - 1.0 % 10/15/2018 5:21 AM [facility] Blood BLOOD SPECIMEN / Unknown Lab Venipuncture / Unknown 10/15/2018 4:54 AM CDT 10/15/2018 5:15 AM CDT Juancho Rhodes MD LAB - HEMATOLOGY ORD ERABLES Performing Organization Address City/State/[facility] Co de Phone Number [facility] [address] [phone] * (ABNORMAL) BASIC METABOLIC PANEL (CALCIUM TOTAL) (10/15/2018 4:54 AM CDT) BUN 4(L) 7 - 26 mg/dL 10/15/2018 5:36 AM [facility] Creatinine 0.6 0.6 - 1.2 mg/dL 10/15/2018 5:36 AM [facility] Sodium 138 136 - 145 mmol/L 10/15/2018 5:36 AM T [facility] Potassium 3.7 3.5 - 4.5 mmol/L 10/15/2018 5:36 AM T [facility] Chloride 109(H) 98 - 107 mmol/L 10/15/2018 5:36 AM [facility] CO2 17(L) 22 - 29 mmol/L 10/15/2018 5:36 AM [facility] Glucose 105 70 - 115 mg/dL 10/15/2018 5:36 AM [facility] Calcium 8.3(L) 8.4 - 10.2 mg/dL 10/15/2018 5:36 AM [facility] Anion Gap 16 8 - 18 10/15/2018 5:36 AM [facility] BUN/Creatinine Ratio 7 7 - 23 10/15/2018 5:36 AM [facility] Osmolality Calculated 283 270 - 300 mOsm/kg 10/15/2018 5:36 AM [facility] eGFR >60 >60 mL/min/1.7 3 m2 10/15/2018 5:36 AM [facility] Blood BLOOD SPECIMEN / Unknown Lab Venipuncture / Unknown 10/15/2018 4:54 AM CDT 10/15/2018 5:15 AM CDT Juancho Rhodes MD LAB - CHEMISTRY MIGU[facility] Organization Address City/State/ZIP Co de Phone Number [address] [phone] * XR WRIST LEFT 2VW (10/14/2018 6:54 [...] 1 Units (10/14/2018 4:21 AM CDT) Pathologist [facility] Unit Description LR Red Cells [facility] Unit ABO O [facility] Unit Rh POS [facility] Product Code RL5 [facility] B[facility] OD [facility] LAB Unit Donor # [id number] [facility] Unit Status released [facility] BLOO D BANK LAB Product Number [id number] [facility] B LOOD BANK LAB Blood Type Barcode [address] [facility] Blood Bank BLOOD SPECIMEN / Unknown 10/14/2018 4:21 AM CDT 10/14/2018 4:21 AM CDT Yusuf Velasco MD LAB - BLOOD BANK ORD ERABLES [facility] [address] * (ABNORMAL) RBC MORPHOLOGY (10/14/2018 4:04 AM CDT) Platelet Estimate Adequate Adequate 019 6:28 AM CDT [facility] Anisocytosis 1+(A) None 10/14/2018 6:28 AM CDT [facility] Hypochromia 1+(A) None 10/14/2018 6:28 AM CDT [facility] Polychromasia 1+(A) None 10/14/2018 6:28 AM CDT [facility] Target Cells 1+(A) None 10/14/2018 6:28 AM CDT [facility] Ovalocytes 1+(A) None 10/14/2018 6:28 AM CDT [facility] [place] Cells 1+(A) None 10/14/2018 6:28 AM CDT [facility] Blood BLOOD SPECIMEN / Unknown Lab Venipuncture / Unknown 10/14/2018 4:04 AM CDT 10/14/2018 4:16 AM CDT Juancho Rhodes MD LAB - HEMATOLOGY ORD ERABLES [address] [phone] * PHOSPHORUS BLOOD (10/14/2018 4:04 AM CDT) Phosphorus 3.1 2.3 - 4.7 mg/dL 10/14/2018 5:00 AM CDT [facility] Blood BLOOD SPECIMEN / Unknown Lab Venipuncture / Unknown 10/14/2018 4:04 AM CDT 10/14/2018 4:16 AM CDT Juancho Rhodes MD LAB - CHEMISTRY ORDE ALLA [address] [phone] * (ABNORMAL) MAGNESIUM BLOOD (10/14/2018 4:04 AM CDT) Magnesium 1.4(L) 1.6 - 2.6 mg/dL 10/14/2018 5:00 AM CDT [facility] Blood BLOOD SPECIMEN / Unknown Lab Venipuncture / Unknown 10/14/2018 4:04 AM CDT 10/14/2018 4:16 AM CDT Juancho Rhodes MD LAB - CHEMISTRY MIGUEL GOLD [facility] Organization Address City/State/ZIP Co de Phone Number [facility] [address] [phone] * (ABNORMAL) CBC W AUTO DIFFERENTIAL (10/14/2018 4:04 AM CDT) WBC 8.3 3.5 - 10.5 10? 3 /uL 10/14/2018 4:30 AM [facility] RBC 3.64(L) 4.30 - 5.70 10? 6 /uL 10/14/2018 4:30 AM [facility] Hemoglobin 10.0(L) 13.5 - 17.5 g/dL 10/14/2018 4:30 AM [facility] Hematocrit 31.5(L) 39.0 - 50.0 % 10/14/2018 4:30 AM [facility] MCV 86.5 81.0 - 97.0 fL 10/14/2018 4:30 AM [facility] MCH 27.5(L) 28.0 - 34.0 pg 10/14/2018 4:30 AM [facility] MCHC 31.7(L) 32.0 - 36.0 g/dL 10/14/2018 4:30 AM [facility] Platelet Count 279 150 - 400 10? 3 /uL 10/14/2018 4:30 AM [facility] RDW-SD 70.0(H) 36.0 - 50.0 fL 10/14/2018 4:30 AM [facility] RDW-CV 22.3(H) 11.2 - 14.8 % 10/14/2018 4:30 AM [facility] MPV 9.5 9.3 - 12.8 fL 10/14/2018 4:30 AM [facility] nRBC Absolute 0.00 0 10? 3 /uL 10/14/2018 4:30 AM [facility] nRBC Auto 0.0 0 /100 WBC 10/14/2018 4:30 AM [facility] Neutrophils % 67.2 35.0 - 70.0 % 10/14/2018 4:30 AM [facility] Lymphocytes % 15.6(L) 19.7 - 55.1 % 10/14/2018 4:30 AM [facility] Monocytes % 14.8 3.0 - 15.0 % 10/14/2018 4:30 AM [facility] Eosinophils % 0.8 0.0 - 6.0 % 10/14/2018 4:30 AM [facility] Basophil % 1.1 0.0 - 1.5 % 10/14/2018 4:30 AM [facility] Neutrophils Absolute 5.6 1.6 - 7.0 10? 3 /uL 10/14/2018 4:30 AM [facility] Lymphocyte Absolute 1.3 0.8 - 2.9 10? 3 /uL 10/14/2018 4:30 AM [facility] Monocytes Absolute 1.22(H) 0.14 - 0.66 10? 3 /uL 10/14/2018 4:30 AM [facility] Eosinophils Absolute 0.07 0.00 - 0.45 10? 3 /uL 10/14/2018 4:30 AM [facility] Basophils Absolute 0.09(H) 0.00 - 0.06 10? 3 /uL 10/14/2018 4:30 AM [facility] Immature Granulocytes % 0.5 0.0 - 1.0 % 10/14/2018 4:30 AM [facility] Blood BLOOD SPECIMEN / Unknown Lab Venipuncture / Unknown 10/14/2018 4:04 AM CDT 10/14/2018 4:16 AM CDT Juancho Rhodes MD LAB - HEMATOLOGY ORD ERABLES [address] [phone] * (ABNORMAL) BASIC METABOLIC PANEL (CALCIUM TOTAL) (10/14/2018 4:04 AM CDT) BUN 4(L) 7 - 26 mg/dL 10/14/2018 5:00 AM [facility] Creatinine 0.6 0.6 - 1.2 mg/dL 10/14/2018 5:00 AM [facility] Sodium 140 136 - 145 mmol/L 10/14/2018 5:00 AM [facility] Potassium 3.1(L) 3.5 - 4.5 mmol/L 10/14/2018 5:00 AM [facility] Chloride 108(H) 98 - 107 mmol/L 10/14/2018 5:00 AM [facility] CO2 20(L) 22 - 29 mmol/L 10/14/2018 5:00 AM [facility] Glucose 119(H) 70 - 115 mg/dL 10/14/2018 5:00 AM [facility] Calcium 8.3(L) 8.4 - 10.2 mg/dL 10/14/2018 5:00 AM [facility] Anion Gap 15 8 - 18 10/14/2018 5:00 AM [facility] BUN/Creatinine Ratio 7 7 - 23 10/14/2018 5:00 AM [facility] Osmolality Calculated 288 270 - 300 mOsm/kg 10/14/2018 5:00 AM [facility] eGFR >60 >60 mL/min/1.7 3 m2 10/14/2018 5:00 AM [facility] Blood BLOOD SPECIMEN / Unknown Lab Venipuncture / Unknown 10/14/2018 4:04 AM CDT 10/14/2018 4:16 AM [facility] Juancho Rhodes MD LAB - CHEMISTRY MIGUEL GOLD [facility] Organization Address City/State/ZIP Co de Phone Number [address] [phone] * TYPE + SCREEN PANEL (10/14/2018 4:04 AM T) Antibody Screen NEG 9 5:07 AM [facility] BLOOD BANK LAB ABO Rh O POS 10/14/2018 5:07 AM [facility] BLOOD BANK LAB Blood Bank BLOOD SPECIMEN / Unknown Lab Venipuncture / Unknown 10/14/2018 4:04 AM CDT 10/14/2018 4:19 AM CDT Yusuf Velasco MD LAB - BLOOD BANK ORD ERABLES [facility] BLOOD BANK LAB [address] [place] [address], [facility] * XR CHEST 1VW PORTABLE (10/13/2018 [...] Anisocytosis 1+(A) None 10/13/2018 1:44 AM CDT [facility] Hypochromia 1+(A) None 10/13/2018 1:44 AM CDT [facility] Polychromasia Few(A) None 10/13/2018 1:44 AM CDT [facility] Target Cells 1+(A) None 10/13/2018 1:44 AM CDT [facility] Schistocytes Rare(A) None 10/13/2018 1:44 AM CDT [facility] Ovalocytes Rare(A) None 10/13/2018 1:44 AM CDT [facility] [place] Cells Few(A) None 10/13/2018 1:44 AM CDT [facility] Blood BLOOD SPECIMEN / Unknown Venipuncture / Unknown 10/12/2018 11:59 PM CDT 10/13/2018 12:07 AM CDT Juancho Rhodes MD LAB - HEMATOLOGY ORD ERABLES [address] [phone] * PHOSPHORUS BLOOD (10/12/2018 11:59 PM CDT) Phosphorus 2.9 2.3 - 4.7 mg/dL 10/13/2018 12:33 AM CDT [facility] Blood BLOOD SPECIMEN / Unknown Venipuncture / Unknown 10/12/2018 11:59 PM CDT 10/13/2018 12:07 AM CDT Juancho Rhodes MD LAB - CHEMISTRY ORDSukhwinder GOLD [address] [phone] * MAGNESIUM BLOOD (10/12/2018 11:59 PM CDT) Magnesium 2.0 1.6 - 2.6 mg/dL 10/13/2018 1:01 AM CDT [facility] Blood BLOOD SPECIMEN / Unknown Venipuncture / Unknown 10/12/2018 11:59 PM CDT 10/13/2018 12:07 AM CDT Juancho Rhodes MD LAB - CHEMISTRY ORDE ALLA [facility] Organization Address City/State/ZIP Co de Phone Number [facility] [address] [place] [address] * (ABNORMAL) BASIC METABOLIC PANEL (CALCIUM TOTAL) (10/12/2018 11:59 PM CDT) BUN 6(L) 7 - 26 mg/dL 10/13/2018 12:33 AM [facility] Creatinine 0.5(L) 0.6 - 1.2 mg/dL 10/13/2018 12:33 AM [facility] Sodium 137 136 - 145 mmol/L 10/13/2018 12:33 AM [facility] Potassium 3.5 3.5 - 4.5 mmol/L 10/13/2018 12:33 AM [facility] Chloride 105 98 - 107 mmol/L 10/13/2018 12:33 AM [facility] CO2 22 22 - 29 mmol/L 10/13/2018 12:33 AM [facility] Glucose 107 70 - 115 mg/dL 10/13/2018 12:33 AM [facility] Calcium 8.7 8.4 - 10.2 mg/dL 10/13/2018 12:33 AM [facility] Anion Gap 14 8 - 18 10/13/2018 12:33 AM [facility] BUN/Creatinine Ratio 12 7 - 23 10/13/2018 12:33 AM [facility] Osmolality Calculated 282 270 - 300 mOsm/kg 10/13/2018 12:33 AM [facility] eGFR >60 >60 mL/min/1.7 3 m2 10/13/2018 12:33 AM [facility] Blood BLOOD SPECIMEN / Unknown Venipuncture / Unknown 10/12/2018 11:59 PM CDT 10/13/2018 12:07 AM CDT Juancho Rhodes MD LAB - CHEMISTRY ORDE RABLES [facility] Organization Address City/State/ZIP Co de Phone Number [facility] [address] [phone] * (ABNORMAL) CBC W AUTO DIFFERENTIAL (10/12/2018 11:59 PM CDT) WBC 9.6 3.5 - 10.5 10? 3 /uL 10/13/2018 1:07 AM [facility] RBC 3.57(L) 4.30 - 5.70 10? 6 /uL 10/13/2018 1:07 AM [facility] Hemoglobin 10.0(L) 13.5 - 17.5 g/dL 10/13/2018 1:07 AM [facility] Hematocrit 31.3(L) 39.0 - 50.0 % 10/13/2018 1:07 AM [facility] MCV 87.7 81.0 - 97.0 fL 10/13/2018 1:07 AM [facility] MCH 28.0 28.0 - 34.0 pg 10/13/2018 1:07 AM [facility] MCHC 31.9(L) 32.0 - 36.0 g/dL 10/13/2018 1:07 AM [facility] Platelet Count 239 150 - 400 10? 3 /uL 10/13/2018 1:07 AM [facility] Comment:Confirmed by repeat analysis. RDW-SD 72.7(H) 36.0 - 50.0 fL 10/13/2018 1:07 AM [facility] RDW-CV 22.5(H) 11.2 - 14.8 % 10/13/2018 1:07 AM [facility] MPV 10.3 9.3 - 12.8 fL 10/13/2018 1:07 AM [facility] nRBC Absolute 0.00 0 10? 3 /uL 10/13/2018 1:07 AM [facility] nRBC Auto 0.0 0 /100 WBC 10/13/2018 1:07 AM [facility] Neutrophils % 70.5(H) 35.0 - 70.0 % 10/13/2018 1:07 AM [facility] Lymphocytes % 13.6(L) 19.7 - 55.1 % 10/13/2018 1:07 AM [facility] Monocytes % 14.1 3.0 - 15.0 % 10/13/2018 1:07 AM [facility] Eosinophils % 0.6 0.0 - 6.0 % 10/13/2018 1:07 AM [facility] Basophil % 0.8 0.0 - 1.5 % 10/13/2018 1:07 AM [facility] Neutrophils Absolute 6.7 1.6 - 7.0 10? 3 /uL 10/13/2018 1:07 AM [facility] Lymphocyte Absolute 1.3 0.8 - 2.9 10? 3 /uL 10/13/2018 1:07 AM [facility] Monocytes Absolute 1.35(H) 0.14 - 0.66 10? 3 /uL 10/13/2018 1:07 AM [facility] Eosinophils Absolute 0.06 0.00 - 0.45 10? 3 /uL 10/13/2018 1:07 AM [facility] Basophils Absolute 0.08(H) 0.00 - 0.06 10? 3 /uL 10/13/2018 1:07 AM [facility] Immature Granulocytes % 0.4 0.0 - 1.0 % 10/13/2018 1:07 AM [facility] Blood BLOOD SPECIMEN / Unknown Venipuncture / Unknown 10/12/2018 11:59 PM CDT 10/13/2018 12:07 AM CDT Juancho Rhodes MD LAB - HEMATOLOGY ORD ERABLES [facility] [address] [phone] * XR CHEST 1VW PORTABLE (10/12/2018 4:07 [...] 7.52(H) 7.35 - 7.45 10/12/2018 1:41 PM [facility] pCO2 Arterial 32(L) 35 - 45 mmHg 10/12/2018 1:41 PM [facility] pO2 Arterial 75(L) 77 - 101 mmHg 10/12/2018 1:41 PM [facility] HCO3 Arterial 25.6 22.0 - 26.0 mmol/L 10/12/2018 1:41 PM [facility] TCO2 Arterial 26.6 25.0 - 29.0 mmol/L 10/12/2018 1:41 PM [facility] Base Excess Arterial 3.1(H) -2.0 - 2.0 mmol/L 10/12/2018 1:[address] [facility] Hemoglobin Arterial 10.9(L) 13.5 - 17.5 g/dL 10/12/2018 1:41 PM T [facility] Oxyhemoglobin Arterial 94.2(L) 95.0 - 100.0 % 10/12/2018 1:41 PM CDT [facility] Carboxyhemoglobin 0.3 0.0 - 3.0 % 10/12/2018 1:41 PM T [facility] Methemoglobin 0.2 0.0 - 2.0 % 10/12/2018 1:41 PM T [facility] FI O2 Arterial 21.0 % 10/12/2018 1:[address] [facility] Blood, arterial ARTERIAL BLOOD SPECIMEN / Unknown Arterial Puncture / Unknown 10/12/2018 1:27 PM CDT 10/12/2018 1:34 PM CDT Juancho Rhodes MD LAB - BLOOD GASES OR DERABLES [address] [phone] * XR CHEST 1VW PORTABLE (10/12/2018 4:15 [...] Estimate Adequate Adequate 019 1:[address] [facility] Anisocytosis 1+(A) None 10/12/2018 1:[address] [facility] Poikilocytes Occasional( A) None 10/12/2018 1:[address] [facility] Hypochromia 1+(A) None 10/12/2018 1:[address] [facility] Polychromasia Occasional( A) None 10/12/2018 1:[address] [facility] Target Cells 1+(A) None 10/12/2018 1:22 AM CDT [facility] Schistocytes Occasional( A) None 10/12/2018 1:22 AM CDT [facility] Ovalocytes Occasional( A) None 10/12/2018 1:22 AM CDT [facility] Blood BLOOD SPECIMEN / Unknown Venipuncture / Unknown 10/12/2018 12:06 AM CDT 10/12/2018 12:14 AM CDT Juancho Rhodes MD LAB - HEMATOLOGY ORD ASHLEY [address] [phone] * PHOSPHORUS BLOOD (10/12/2018 12:06 AM CDT) Phosphorus 2.8 2.3 - 4.7 mg/dL 10/12/2018 12:51 AM CDT [facility] Blood BLOOD SPECIMEN / Unknown Venipuncture / Unknown 10/12/2018 12:06 AM CDT 10/12/2018 12:14 AM CDT Juancho Rhodes MD LAB - CHEMISTRY MIGUEL GOLD Performing Organization Address [facility] Co de Phone Number [address] [phone] * (ABNORMAL) MAGNESIUM BLOOD (10/12/2018 12:06 AM CDT) Magnesium 1.2(L) 1.6 - 2.6 mg/dL 10/12/2018 12:58 AM CDT [facility] Blood BLOOD SPECIMEN / Unknown Venipuncture / Unknown 10/12/2018 12:06 AM CDT 10/12/2018 12:14 AM CDT Juancho Rhodes MD LAB - CHEMISTRY MIGUEL GOLD Performing Organization Address [facility]/ZIP Co de Phone Number [address] [phone] * (ABNORMAL) BASIC METABOLIC PANEL (CALCIUM TOTAL) (10/12/2018 12:06 AM CDT) Pathologist [facility] BUN 6(L) 7 - 26 mg/dL 10/12/2018 12:57 AM [facility] Creatinine 0.4(L) 0.6 - 1.2 mg/dL 10/12/2018 12:57 AM [facility] Sodium 138 136 - 145 mmol/L 10/12/2018 12:57 AM [facility] Potassium 3.0(L) 3.5 - 4.5 mmol/L 10/12/2018 12:57 AM [facility] Chloride 109(H) 98 - 107 mmol/L 10/12/2018 12:57 AM [facility] CO2 22 22 - 29 mmol/L 10/12/2018 12:57 AM [facility] Glucose 108 70 - 115 mg/dL 10/12/2018 12:57 AM [facility] Calcium 7.3(L) 8.4 - 10.2 mg/dL 10/12/2018 12:57 AM [facility] Anion Gap 10 8 - 18 10/12/2018 12:57 AM [facility] BUN/Creatinine Ratio 15 7 - 23 10/12/2018 12:57 AM [facility] Osmolality Calculated 284 270 - 300 mOsm/kg 10/12/2018 12:57 AM [facility] eGFR >60 >60 mL/min/1.7 3 m2 10/12/2018 12:57 AM [facility] Blood BLOOD SPECIMEN / Unknown Venipuncture / Unknown 10/12/2018 12:06 AM CDT 10/12/2018 12:14 AM T Juancho Rhodes MD LAB - CHEMISTRY MIGUEL GOLD [facility] Address City/State/ZIP Co de Phone Number [facility] [address] [place] [address] * (ABNORMAL) CBC W AUTO DIFFERENTIAL (10/12/2018 12:06 AM CDT) Pathologist [facility] WBC 7.5 3.5 - 10.5 10? 3 /uL 10/12/2018 12:31 AM [facility] RBC 3.17(L) 4.30 - 5.70 10? 6 /uL 10/12/2018 12:31 AM [facility] Hemoglobin 8.9(L) 13.5 - 17.5 g/dL 10/12/2018 12:31 AM [facility] Hematocrit 28.0(L) 39.0 - 50.0 % 10/12/2018 12:31 AM [facility] MCV 88.3 81.0 - 97.0 fL 10/12/2018 12:31 AM [facility] MCH 28.1 28.0 - 34.0 pg 10/12/2018 12:31 AM [facility] MCHC 31.8(L) 32.0 - 36.0 g/dL 10/12/2018 12:31 AM [facility] Platelet Count 155 150 - 400 10? 3 /uL 10/12/2018 12:31 AM [facility] RDW-SD 72.6(H) 36.0 - 50.0 fL 10/12/2018 12:31 AM [facility] RDW-CV 22.2(H) 11.2 - 14.8 % 10/12/2018 12:31 AM [facility] MPV 10.3 9.3 - 12.8 fL 10/12/2018 12:31 AM [facility] nRBC Absolute 0.00 0 10? 3 /uL 10/12/2018 12:31 AM [facility] nRBC Auto 0.0 0 /100 WBC 10/12/2018 12:31 AM [facility] Neutrophils % 73.9(H) 35.0 - 70.0 % 10/12/2018 12:31 AM [facility] Lymphocytes % 10.2(L) 19.7 - 55.1 % 10/12/2018 12:31 AM [facility] Monocytes % 14.2 3.0 - 15.0 % 10/12/2018 12:31 AM [facility] Eosinophils % 0.5 0.0 - 6.0 % 10/12/2018 12:31 AM [facility] Basophil % 0.7 0.0 - 1.5 % 10/12/2018 12:31 AM [facility] Neutrophils Absolute 5.6 1.6 - 7.0 10? 3 /uL 10/12/2018 12:[address] [facility] LABORATORY [facility] Lymphocyte Absolute 0.8 0.8 - 2.9 10? 3 /uL 10/12/2018 12:31 AM CDT [facility] Monocytes Absolute 1.07(H) 0.14 - 0.66 10? 3 /uL 10/12/2018 12:31 AM T [facility] Eosinophils Absolute 0.04 0.00 - 0.45 10? 3 /uL 10/12/2018 12:31 AM T [facility] Basophils Absolute 0.05 0.00 - 0.06 10? 3 /uL 10/12/2018 12:31 AM T [facility] Immature Granulocytes % 0.5 0.0 - 1.0 % 10/12/2018 12:31 AM [facility] Blood BLOOD SPECIMEN / Unknown Venipuncture / Unknown 10/12/2018 12:06 AM CDT 10/12/2018 12:14 AM CDT Juancho Rhodes MD LAB - HEMATOLOGY ORD ERABLES [address] [phone] * AMMONIA (10/12/2018 12:06 AM CDT) Ammonia 31 11 - 64 umol/L 10/12/2018 12:44 AM [facility] Blood BLOOD SPECIMEN / Unknown Lab Venipuncture / Unknown 10/12/2018 12:06 AM CDT 10/12/2018 12:17 AM CDT Juancho Rhodes MD LAB - CHEMISTRY ORDE RABEMILE [address] [phone] * (ABNORMAL) HEPATIC FUNCTION PANEL (10/12/2018 12:06 AM CDT) Protein Total 5.0(L) 6.0 - 8.3 g/dL 019 12:51 AM CDT H LABORATORY [facility] Albumin 1.6(L) 3.4 - 5.0 g/dL 10/12/2018 12:51 AM [facility] Bilirubin Total 2.8(H) 0.2 - 1.2 mg/dL 09/17 12:51 AM [facility] Bilirubin Conjugated 2.0(H) 0.0 - 0.5 mg/dL 10/12/2018 12:51 AM [facility] Bilirubin Unconjugated 0.8 Unconjugated Bilirubin is a calculated value: Reference ranges have not been established. mg/dL 10/12/2018 12:51 AM [facility] Alkaline Phosphatase 103 40 - 150 Units/L 10/12/2018 12:51 AM [facility] ALT 26 0 - 55 Units/L 10/12/2018 12:51 AM [facility] AST 105(H) 5 - 34 Units/L 10/12/2018 12:51 AM [facility] Albumin/Globulin Ratio 0.5(L) 1.1 - 2.3 10/12/2018 12:51 AM [facility] Blood BLOOD SPECIMEN / Unknown Lab Venipuncture / Unknown 10/12/2018 12:06 AM CDT 10/12/2018 12:17 AM CDT Juancho Rhodes MD LAB - CHEMISTRY STACEYE [facility] Organization Address [facility]/State/[facility] Co de Phone Number [facility] [address] [place] [address] * HIV-1 HIV-2 ANTIGEN/ANTIBODY (10/12/2018 12:06 AM CDT) HIV Antigen/Antibod y 1 & 2 Non-reacti ve Non-react maureen 10/12/2018 1:05 AM [facility] Comment: Neither HIV-1 p24 Antigen nor HIV-1/HIV-2 Antibodies are detected. ? Blood BLOOD SPECIMEN / Unknown Lab Venipuncture / Unknown 10/12/2018 12:06 AM CDT 10/12/2018 12:17 AM CDT Juancho Rhodes MD LAB - HEMATOLOGY ORD ERABLES Performing Organization Address [facility]/ZIP Co de Phone Number [address] [phone] * SYPHILIS ANTIBODY CASCADING REFLEX (10/12/2018 12:06 AM CDT) Treponema pallidum Antibody Non-react maureen Non-react maureen 10/12/2018 1:[address] [facility] Comment: No Laboratory evidence of syphilis infection. ?? Note: ??Circulating antibodies may be low or undetectable in early infection. ??If recent exposure is suspected, re-draw sample in 2-4 weeks and repeat testing. Blood BLOOD SPECIMEN / Unknown Lab Venipuncture / Unknown 10/12/2018 12:06 AM CDT 10/12/2018 12:17 AM CDT Juancho Rhodes MD LAB - SEROLOGY ORDER WILLIAN Performing Organization Address [facility]/ZIP Co de Phone Number [address] [phone] * VITAMIN B1 (10/12/2018 12:06 AM CDT) Pathologist [facility] Vitamin B1 Whole Blood 175.9 66.5 - 200.0 nmol/L 10/17/2018 6:15 AM CDT [facility] ([facility]) Comment: This test was developed and its performance characteristics determined by [facility]. It has not been cleared or approved by the Food and Drug Administration. Blood BLOOD SPECIMEN / Unknown Lab Venipuncture / Unknown 10/12/2018 12:06 AM CDT 10/12/2018 12:17 AM CDT Narrative [facility] ([facility]) - 10/17/2018 6:15 AM CDT Performed at: ??01 - [facility] [address] ??[id number] Centrifugal Separator: Alex Wilcox MD, Phone: ??[phone] Juancho Rhodes MD LAB - CHEMISTRY MIGUEL GOLD Performing Organization Address City/[facility]/ZIP Co de Phone Number [facility] ([facility]) [address] [id number] [place] * HOMOCYSTEINE BLOOD QUANTITATIVE (10/12/2018 12:06 AM CDT) Homocysteine 5.2 4.4 - 16.2 umol/L 10/12/2018 1:24 AM CDT [facility] Blood BLOOD SPECIMEN / Unknown Lab Venipuncture / Unknown 10/12/2018 12:06 AM CDT 10/12/2018 12:17 AM CDT Juancho Rhodes MD LAB - CHEMISTRY MIGUEL GOLD Performing Organization Address [facility] Co de Phone Number [address] [phone] * (ABNORMAL) FOLATE (10/12/2018 12:06 AM CDT) Folate 6.5(L) 7.0 - 31.4 ng/mL 10/12/2018 1:59 AM CDT [facility] Blood BLOOD SPECIMEN / Unknown Lab Venipuncture / Unknown 10/12/2018 12:06 AM CDT 10/12/2018 12:17 AM CDT Juancho Rhodes MD LAB - CHEMISTRY MIGUEL GOLD Performing Organization Address [facility] Co de Phone Number [address] [phone] * XR CHEST 1VW (10/11/2018 5:12 AM [...] Estimate Adequate Adequate 019 1:[address] [facility] Anisocytosis 1+(A) None 10/11/2018 1:[address] [facility] Hypochromia 1+(A) None 10/11/2018 1:[address] [facility] Polychromasia Occasional( A) None 10/11/2018 1:49 AM CDT [facility] Target Cells 1+(A) None 10/11/2018 1:49 AM CDT [facility] Ovalocytes Occasional( A) None 10/11/2018 1:49 AM CDT [facility] Blood BLOOD SPECIMEN / Unknown Venipuncture / Unknown 10/11/2018 12:04 AM CDT 10/11/2018 12:16 AM CDT Juancho Rhodes MD LAB - HEMATOLOGY ORD ASHLEY [address] [phone] * PHOSPHORUS BLOOD (10/11/2018 12:04 AM CDT) Phosphorus 3.6 2.3 - 4.7 mg/dL 10/11/2018 12:36 AM CDT [facility] Blood BLOOD SPECIMEN / Unknown Venipuncture / Unknown 10/11/2018 12:04 AM CDT 10/11/2018 12:16 AM CDT Juancho Rhodes MD LAB - CHEMISTRY MIGUEL GOLD Performing Organization Address [facility]/ZIP Co de Phone Number [address] [phone] * (ABNORMAL) MAGNESIUM BLOOD (10/11/2018 12:04 AM CDT) Magnesium 1.4(L) 1.6 - 2.6 mg/dL 10/11/2018 12:36 AM CDT [facility] Blood BLOOD SPECIMEN / Unknown Venipuncture / Unknown 10/11/2018 12:04 AM CDT 10/11/2018 12:16 AM CDT Juancho Rhodes MD LAB - CHEMISTRY MIGUEL GOLD Performing Organization Address [facility]/ZIP Co de Phone Number [address] [phone] * (ABNORMAL) BASIC METABOLIC PANEL (CALCIUM TOTAL) (10/11/2018 12:04 AM CDT) BUN 5(L) 7 - 26 mg/dL 10/11/2018 12:36 AM [facility] Creatinine 0.4(L) 0.6 - 1.2 mg/dL 10/11/2018 12:36 AM [facility] Sodium 135(L) 136 - 145 mmol/L 10/11/2018 12:36 AM [facility] Potassium 3.5 3.5 - 4.5 mmol/L 10/11/2018 12:36 AM [facility] Chloride 101 98 - 107 mmol/L 10/11/2018 12:36 AM [facility] CO2 26 22 - 29 mmol/L 10/11/2018 12:36 AM [facility] Glucose 142(H) 70 - 115 mg/dL 10/11/2018 12:36 AM [facility] Calcium 7.9(L) 8.4 - 10.2 mg/dL 10/11/2018 12:36 AM [facility] Anion Gap 12 8 - 18 10/11/2018 12:36 AM [facility] BUN/Creatinine Ratio 13 7 - 23 10/11/2018 12:36 AM [facility] Osmolality Calculated 280 270 - 300 mOsm/kg 10/11/2018 12:36 AM [facility] eGFR >60 >60 mL/min/1.7 3 m2 10/11/2018 12:36 AM [facility] Blood BLOOD SPECIMEN / Unknown Venipuncture / Unknown 10/11/2018 12:04 AM CDT 10/11/2018 12:16 AM T Juancho Rhodes MD LAB - CHEMISTRY MIGUEL GOLD [facility] Organization Address City/State/ZIP Co de Phone Number [facility] [address] [phone] * (ABNORMAL) CBC W AUTO DIFFERENTIAL (10/11/2018 12:04 AM CDT) WBC 5.4 3.5 - 10.5 10? 3 /uL 10/11/2018 1:11 AM [facility] RBC 3.49(L) 4.30 - 5.70 10? 6 /uL 10/11/2018 1:11 AM [facility] Hemoglobin 9.7(L) 13.5 - 17.5 g/dL 10/11/2018 1:11 AM [facility] Hematocrit 30.8(L) 39.0 - 50.0 % 10/11/2018 1:11 AM [facility] MCV 88.3 81.0 - 97.0 fL 10/11/2018 1:11 AM [facility] MCH 27.8(L) 28.0 - 34.0 pg 10/11/2018 1:11 AM [facility] MCHC 31.5(L) 32.0 - 36.0 g/dL 10/11/2018 1:11 AM [facility] Platelet Count 157 150 - 400 10? 3 /uL 10/11/2018 1:11 AM [facility] RDW-SD 70.9(H) 36.0 - 50.0 fL 10/11/2018 1:11 AM [facility] RDW-CV 22.0(H) 11.2 - 14.8 % 10/11/2018 1:11 AM [facility] MPV 10.7 9.3 - 12.8 fL 10/11/2018 1:11 AM [facility] nRBC Absolute 0.00 0 10? 3 /uL 10/11/2018 1:11 AM [facility] nRBC Auto 0.0 0 /100 WBC 10/11/2018 1:11 AM [facility] Neutrophils % 54.7 35.0 - 70.0 % 10/11/2018 1:11 AM [facility] Lymphocytes % 20.1 19.7 - 55.1 % 10/11/2018 1:11 AM [facility] Monocytes % 19.8(H) 3.0 - 15.0 % 10/11/2018 1:11 AM [facility] Eosinophils % 3.3 0.0 - 6.0 % 10/11/2018 1:11 AM [facility] Basophil % 1.7(H) 0.0 - 1.5 % 10/11/2018 1:11 AM [facility] Neutrophils Absolute 3.0 1.6 - 7.0 10? 3 /uL 10/11/2018 1:11 AM T [facility] Lymphocyte Absolute 1.1 0.8 - 2.9 10? 3 /uL 10/11/2018 1:11 AM CDT [facility] Monocytes Absolute 1.07(H) 0.14 - 0.66 10? 3 /uL 10/11/2018 1:11 AM T [facility] Eosinophils Absolute 0.18 0.00 - 0.45 10? 3 /uL 10/11/2018 1:11 AM T [facility] Basophils Absolute 0.09(H) 0.00 - 0.06 10? 3 /uL 10/11/2018 1:11 AM [facility] Immature Granulocytes % 0.4 0.0 - 1.0 % 10/11/2018 1:11 AM [facility] Blood BLOOD SPECIMEN / Unknown Venipuncture / Unknown 10/11/2018 12:04 AM CDT 10/11/2018 12:16 AM CDT Juancho Rhodes MD LAB - HEMATOLOGY ORD ERABLES [address] [phone] * EKG 12-LEAD (10/10/2018 4:26 PM CDT) Ventricular Rate 64 BPM SL MUSE Atrial Rate [address] [facility] MUSE P-R Interval [address] [facility] MUSE QRS Duration ms [address] [facility] MUSE Q-T Interval ms [address] [facility] MUSE QTC Calculation (Bezet) [address] [facility] MUSE Calculated P [place] [address] [facility] MUSE Calculated R [place] [address] [facility] MUSE Calculated T [place] [address] [facility] MUSE Interpretation EKG NORMAL SINUS RHYTHM NORMAL ECG WHEN COMPARED WITH ECG OF 03-OCT-2018 14:57, NO SIGNIFICANT CHANGE WAS FOUND Confirmed by Reji HERNANDEZ, KEIRA ([id number]), videotape editor KACI ARANDA ([id number]) on 10/16/2018 1:49:[address] [facility] MUSE 10/10/2018 4:26 PM CDT 10/16/2018 [...] 5.3 10? 3 /uL 10/10/2018 1:37 AM [facility] Total Cell Count 100 10/11/19 19 1:37 AM [facility] Neutrophils Absolute Manual 3.92 1.60 - 7.00 10? 3 /uL 10/10/2018 1:37 AM [facility] Comment:(BANDS+SEGS) x WBC = NEUT # (ANC) Lymphocyte Absolute Manual 0.58(L) 0.80 - 2.90 10? 3 /uL 10/10/2018 1:37 AM [facility] Monocytes Absolute Manual 0.64 0.14 - 0.66 10? 3 /uL 10/10/2018 1:37 AM [facility] Eosinophils Absolute Manual 0.11 0.00 - 0.22 10? 3 /uL 10/10/2018 1:37 AM CDT [facility] Neutrophil % Manual 74(H) 30 - 60 % 10/10/2018 1:37 AM T [facility] Lymphocyte % Manual 11(L) 20 - 45 % 10/10/2018 1:37 AM [facility] Monocytes % Manual 12(H) 2 - 10 % 10/10/2018 1:37 AM [facility] Eosinophils % Manual 2 1 - 6 % 10/10/2018 1:37 AM T [facility] Atypical Lymphocyte % Manual 1(H) 0 % 10/10/2018 1:37 AM T [facility] Platelet Estimate Slightly Decreased(A ) Adequate 10/10/2018 1:37 AM [facility] Anisocytosis 1+(A) None 10/10/2018 1:37 AM [facility] Hypochromia 1+(A) None 10/10/2018 1:37 AM [facility] Polychromasia Few(A) None 10/10/2018 1:37 AM [facility] Target Cells 1+(A) None 10/10/2018 1:37 AM [facility] Ovalocytes 1+(A) None 10/10/2018 1:37 AM [facility] Blood BLOOD SPECIMEN / Unknown Venipuncture / Unknown 10/10/2018 12:03 AM CDT 10/10/2018 12:32 AM CDT Juancho Rhodes MD LAB - HEMATOLOGY ORD ASHLEY Performing Organization Address City/[facility]/ZIP Co de Phone Number [facility] [address] [place] [address] * PHOSPHORUS BLOOD (10/10/2018 12:03 AM CDT) Phosphorus 3.2 2.3 - 4.7 mg/dL 10/10/2018 1:00 AM T [facility] Blood BLOOD SPECIMEN / Unknown Venipuncture / Unknown 10/10/2018 12:03 AM CDT 10/10/2018 12:37 AM CDT Juancho Rhodes MD LAB - CHEMISTRY ORDSukhwinder GOLD [facility] [address] [place] [address] * (ABNORMAL) MAGNESIUM BLOOD (10/10/2018 12:03 AM CDT) Magnesium 1.5(L) 1.6 - 2.6 mg/dL 10/10/2018 12:59 AM [facility] Blood BLOOD SPECIMEN / Unknown Venipuncture / Unknown 10/10/2018 12:03 AM CDT 10/10/2018 12:37 AM CDT Juancho Rhodes MD LAB - CHEMISTRY MIGUEL GOLD [address] [phone] * (ABNORMAL) BASIC METABOLIC PANEL (CALCIUM TOTAL) (10/10/2018 12:03 AM CDT) Pathologist [facility] BUN 6(L) 7 - 26 mg/dL 10/10/2018 1:00 AM [facility] Creatinine 0.4(L) 0.6 - 1.2 mg/dL 10/10/2018 1:00 AM [facility] Sodium 136 136 - 145 mmol/L 10/10/2018 1:00 AM [facility] Potassium 3.5 3.5 - 4.5 mmol/L 10/10/2018 1:00 AM [facility] Chloride 107 98 - 107 mmol/L 10/10/2018 1:00 AM [facility] CO2 22 22 - 29 mmol/L 10/10/2018 1:00 AM [facility] Glucose 128(H) 70 - 115 mg/dL 10/10/2018 1:00 AM [facility] Calcium 7.4(L) 8.4 - 10.2 mg/dL 10/10/2018 1:00 AM [facility] Anion Gap 11 8 - 18 10/10/2018 1:00 AM [facility] BUN/Creatinine Ratio 15 7 - 23 10/10/2018 1:00 AM [facility] Osmolality Calculated 281 270 - 300 mOsm/kg 10/10/2018 1:00 AM [facility] eGFR >60 >60 mL/min/1.7 3 m2 10/10/2018 1:00 AM [facility] Blood BLOOD SPECIMEN / Unknown Venipuncture / Unknown 10/10/2018 12:03 AM CDT 10/10/2018 12:37 AM CDT Juancho Rhodes MD LAB - CHEMISTRY MIGUEL GOLD [facility] Organization Address City/State/ZIP Co de Phone Number [facility] [address] [phone] * (ABNORMAL) CBC W AUTO DIFFERENTIAL (10/10/2018 12:03 AM CDT) WBC 5.3 3.5 - 10.5 10? 3 /uL 10/10/2018 1:11 AM [facility] RBC 3.18(L) 4.30 - 5.70 10? 6 /uL 10/10/2018 1:11 AM [facility] Hemoglobin 8.9(L) 13.5 - 17.5 g/dL 10/10/2018 1:11 AM [facility] Hematocrit 28.1(L) 39.0 - 50.0 % 10/10/2018 1:11 AM [facility] MCV 88.4 81.0 - 97.0 fL 10/10/2018 1:11 AM [facility] MCH 28.0 28.0 - 34.0 pg 10/10/2018 1:11 AM [facility] MCHC 31.7(L) 32.0 - 36.0 g/dL 10/10/2018 1:11 AM [facility] Platelet Count 129(L) 150 - 400 10? 3 /uL 10/10/2018 1:11 AM [facility] RDW-SD 72.7(H) 36.0 - 50.0 fL 10/10/2018 1:11 AM [facility] RDW-CV 22.5(H) 11.2 - 14.8 % 10/10/2018 1:11 AM [facility] MPV 11.1 9.3 - 12.8 fL 10/10/2018 1:11 AM CDT [facility] nRBC Absolute 0.00 0 10? 3 /uL 10/10/2018 1:11 AM CDT [facility] nRBC Auto 0.0 0 /100 WBC 10/10/2018 1:11 AM CDT [facility] Blood BLOOD SPECIMEN / Unknown Venipuncture / Unknown 10/10/2018 12:03 AM CDT 10/10/2018 12:32 AM CDT Juancho Rhodes MD LAB - HEMATOLOGY ORD ERABLES [facility] [address] [place] [address] * XR CHEST 1VW PORTABLE (10/09/2018 4:27 [...] 5.5 10? 3 /uL 10/09/2018 12:58 AM [facility] Total Cell Count 100 10/10/19 19 12:58 AM [facility] Neutrophils Absolute Manual 3.85 1.60 - 7.00 10? 3 /uL 10/09/2018 12:58 AM [facility] Comment:(BANDS+SEGS) x WBC = NEUT # (ANC) Lymphocyte Absolute Manual 0.66(L) 0.80 - 2.90 10? 3 /uL 10/09/2018 12:58 AM [facility] Monocytes Absolute Manual 0.77(H) 0.14 - 0.66 10? 3 /uL 10/09/2018 12:58 AM [facility] Eosinophils Absolute Manual 0.11 0.00 - 0.22 10? 3 /uL 10/09/2018 12:58 AM [facility] Basophil Absolute Manual 0.11(H) 0.00 - 0.06 10? 3 /uL 10/09/2018 12:58 AM [facility] Band % Manual 2 0 - 10 % 10/09/2018 12:58 AM [facility] Neutrophil % Manual 68(H) 30 - 60 % 10/09/2018 12:58 AM [facility] Lymphocyte % Manual 12(L) 20 - 45 % 10/09/2018 12:58 AM [facility] Monocytes % Manual 14(H) 2 - 10 % 10/09/2018 12:58 AM [facility] Eosinophils % Manual 2 1 - 6 % 10/09/2018 12:58 AM [facility] Basophils % Manual 2 0 - 3 % 10/09/2018 12:58 AM [facility] Platelet Estimate Adequate Adequate 10/09/2018 12:58 AM [facility] Anisocytosis 1+(A) None 10/09/2018 12:58 AM [facility] Hypochromia 1+(A) None 10/09/2018 12:58 AM [facility] Ovalocytes Few(A) None 10/09/2018 12:58 AM [facility] Blood BLOOD SPECIMEN / Unknown Venipuncture / Unknown 10/09/2018 12:00 AM CDT 10/09/2018 12:12 AM CDT Juancho Rhodes MD LAB - HEMATOLOGY ORD ERABLES Performing Organization Address City/[facility]/ZIP Co de Phone Number [address] [phone] * (ABNORMAL) PHOSPHORUS BLOOD (10/09/2018 12:00 AM CDT) Phosphorus 2.1(L) 2.3 - 4.7 mg/dL 10/09/2018 12:32 AM T [facility] Blood BLOOD SPECIMEN / Unknown Venipuncture / Unknown 10/09/2018 12:00 AM CDT 10/09/2018 12:12 AM CDT Juancho Rhodes MD LAB - CHEMISTRY ORDSukhwinder GOLD [address] [place] [phone] * (ABNORMAL) MAGNESIUM BLOOD (10/09/2018 12:00 AM CDT) Magnesium 1.1(L) 1.6 - 2.6 mg/dL 10/09/2018 12:32 AM [facility] Blood BLOOD SPECIMEN / Unknown Venipuncture / Unknown 10/09/2018 12:00 AM CDT 10/09/2018 12:12 AM CDT Juancho Rhodes MD LAB - CHEMISTRY MIGUEL GOLD [facility] Organization Address City/State/ZIP Co de Phone Number [facility] [address] [phone] * (ABNORMAL) BASIC METABOLIC PANEL (CALCIUM TOTAL) (10/09/2018 12:00 AM CDT) BUN 6(L) 7 - 26 mg/dL 10/09/2018 12:32 AM [facility] Creatinine 0.4(L) 0.6 - 1.2 mg/dL 10/09/2018 12:32 AM [facility] Sodium 136 136 - 145 mmol/L 10/09/2018 12:32 AM [facility] Potassium 3.0(L) 3.5 - 4.5 mmol/L 10/09/2018 12:32 AM [facility] Chloride 110(H) 98 - 107 mmol/L 10/09/2018 12:32 AM [facility] CO2 20(L) 22 - 29 mmol/L 10/09/2018 12:32 AM [facility] Glucose 120(H) 70 - 115 mg/dL 10/09/2018 12:32 AM [facility] Calcium 6.9(L) 8.4 - 10.2 mg/dL 10/09/2018 12:32 AM [facility] Anion Gap 9 8 - 18 10/09/2018 12:32 AM [facility] BUN/Creatinine Ratio 15 7 - 23 10/09/2018 12:32 AM [facility] Osmolality Calculated 281 270 - 300 mOsm/kg 10/09/2018 12:32 AM [facility] eGFR >60 >60 mL/min/1.7 3 m2 10/09/2018 12:32 AM [facility] Blood BLOOD SPECIMEN / Unknown Venipuncture / Unknown 10/09/2018 12:00 AM CDT 10/09/2018 12:12 AM CDT Juancho Rhodes MD LAB - CHEMISTRY MIGUEL Guardado Organization Address City/State/ZIP Co de Phone Number [facility] [address] [place] [address] * (ABNORMAL) CBC W AUTO DIFFERENTIAL (10/09/2018 12:00 AM T) WBC 5.5 3.5 - 10.5 10? 3 /uL 10/09/2018 12:26 AM [facility] RBC 3.05(L) 4.30 - 5.70 10? 6 /uL 10/09/2018 12:26 AM [facility] Hemoglobin 8.4(L) 13.5 - 17.5 g/dL 10/09/2018 12:26 AM [facility] Hematocrit 26.8(L) 39.0 - 50.0 % 10/09/2018 12:26 AM [facility] MCV 87.9 81.0 - 97.0 fL 10/09/2018 12:26 AM [facility] MCH 27.5(L) 28.0 - 34.0 pg 10/09/2018 12:26 AM [facility] MCHC 31.3(L) 32.0 - 36.0 g/dL 10/09/2018 12:26 AM [facility] Platelet Count 102(L) 150 - 400 10? 3 /uL 10/09/2018 12:26 AM [facility] RDW-SD 73.2(H) 36.0 - 50.0 fL 10/09/2018 12:26 AM [facility] RDW-CV 22.8(H) 11.2 - 14.8 % 10/09/2018 12:26 AM [facility] MPV 10.2 9.3 - 12.8 fL 10/09/2018 12:26 AM [facility] nRBC Absolute 0.00 0 10? 3 /uL 10/09/2018 12:26 AM [facility] nRBC Auto 0.0 0 /100 WBC 10/09/2018 12:26 AM [facility] Blood BLOOD SPECIMEN / Unknown Venipuncture / Unknown 10/09/2018 12:00 AM CDT 10/09/2018 12:12 AM T Juancho Rhodes MD LAB - HEMATOLOGY ORD ERABLES [facility] [address] [phone] * (ABNORMAL) BLOOD GASES ARTERIAL (10/08/2018 9:26 AM [facility]) pH Arterial 7.48(H) 7.35 - 7.45 10/08/2018 9:58 AM [facility] pCO2 Arterial 34(L) 35 - 45 mmHg 10/08/2018 9:58 AM [facility] pO2 Arterial 106(H) 77 - 101 mmHg 10/08/2018 9:58 AM [facility] HCO3 Arterial 24.9 22.0 - 26.0 mmol/L 10/08/2018 9:58 AM [facility] TCO2 Arterial 26.0 25.0 - 29.0 mmol/L 10/08/2018 9:58 AM [facility] Base Excess Arterial 1.6 -2.0 - 2.0 mmol/L 10/08/2018 9:58 AM [facility] Hemoglobin Arterial 9.7(L) 13.5 - 17.5 g/dL 10/08/2018 9:58 AM [facility] Oxyhemoglobin Arterial 97.2 95.0 - 100.0 % 10/08/2018 9:58 AM [facility] Carboxyhemoglobin 0.2 0.0 - 3.0 % 10/08/2018 9:58 AM [facility] Methemoglobin 0.6 0.0 - 2.0 % 10/08/2018 9:58 AM [facility] FI O2 Arterial 40.0 % 10/08/2018 9:58 AM CDT [facility] Blood, arterial ARTERIAL BLOOD SPECIMEN / Unknown Arterial Puncture / Unknown 10/08/2018 9:26 AM CDT 10/08/2018 9:55 AM CDT Henrietta Landers DO LAB - BLOOD GASES OR DERABLES [facility] [address] [place] [address] * XR CHEST 1VW PORTABLE (10/08/2018 5:50 [...] This report was approved by Carlos Manuel vAendaño on 10/08/2018 2:41 PM . I, Dr. Alexandria HILLS M.D. have personally reviewed and interpretedthis examination/study. This report was electronically signed by Alexandria HILLS M.D. on 10/08/2018 2:56 PM . Henrietta Landers DO DIAGNOSTIC IMAGING O RDERABLES * (ABNORMAL) RBC MORPHOLOGY (10/08/2018 12:14 AM CDT) Platelet Estimate Decreased (A) Adequate 10/08/2018 12:[address] [facility] Anisocytosis 1+(A) None 10/08/2018 12:57 AM CDT [facility] Hypochromia 1+(A) None 10/08/2018 12:57 AM CDT [facility] Polychromasia Few(A) None 10/08/2018 12:57 AM CDT [facility] Target Cells 1+(A) None 10/08/2018 12:[address] [facility] [place] Cells 1+(A) None 10/08/2018 12:[address] [facility] Blood BLOOD SPECIMEN / Unknown Venipuncture / Unknown 10/08/2018 12:14 AM CDT 10/08/2018 12:32 AM CDT Juancho Rhodes MD LAB - HEMATOLOGY ORD ERABLES [facility] [address] [place] [address] * PHOSPHORUS BLOOD (10/08/2018 12:14 AM CDT) Phosphorus 2.8 2.3 - 4.7 mg/dL 10/08/2018 1:03 AM CDT [facility] Blood BLOOD SPECIMEN / Unknown Venipuncture / Unknown 10/08/2018 12:14 AM CDT 10/08/2018 12:32 AM CDT Juancho Rhodes MD LAB - CHEMISTRY MIGUEL GOLD [address] [phone] * MAGNESIUM BLOOD (10/08/2018 12:14 AM CDT) Pathologist [facility] Magnesium 2.2 1.6 - 2.6 mg/dL 10/08/2018 1:03 AM T [facility] Blood BLOOD SPECIMEN / Unknown Venipuncture / Unknown 10/08/2018 12:14 AM CDT 10/08/2018 12:32 AM CDT Juancho Rhodes MD LAB - CHEMISTRY MIGUEL GOLD Performing Organization Address [facility]/ZIP Co de Phone Number [address] [phone] * (ABNORMAL) BASIC METABOLIC PANEL (CALCIUM TOTAL) (10/08/2018 12:14 AM CDT) Pathologist [facility] BUN 7 7 - 26 mg/dL 10/08/2018 1:03 AM [facility] Creatinine 0.5(L) 0.6 - 1.2 mg/dL 10/08/2018 1:03 AM [facility] Sodium 133(L) 136 - 145 mmol/L 10/08/2018 1:03 AM [facility] Potassium 4.4 3.5 - 4.5 mmol/L 10/08/2018 1:03 AM [facility] Chloride 102 98 - 107 mmol/L 10/08/2018 1:03 AM [facility] CO2 25 22 - 29 mmol/L 10/08/2018 1:03 AM [facility]T [facility] Glucose 147(H) 70 - 115 mg/dL 10/08/2018 1:03 AM [facility] Calcium 8.0(L) 8.4 - 10.2 mg/dL 10/08/2018 1:03 AM [facility] Anion Gap 10 8 - 18 10/08/2018 1:03 AM [facility] BUN/Creatinine Ratio 14 7 - 23 10/08/2018 1:03 AM [facility] Osmolality Calculated 277 270 - 300 mOsm/kg 10/08/2018 1:03 AM [facility] eGFR >60 >60 mL/min/1.7 3 m2 10/08/2018 1:03 AM [facility] Blood BLOOD SPECIMEN / Unknown Venipuncture / Unknown 10/08/2018 12:14 AM CDT 10/08/2018 12:32 AM CDT Juancho Rhodes MD LAB - CHEMISTRY MIGUEL GOLD [facility] Address City/State/[facility] Co de Phone Number [address] [phone] * (ABNORMAL) CBC W AUTO DIFFERENTIAL (10/08/2018 12:14 AM CDT) WBC 5.2 3.5 - 10.5 10? 3 /uL 10/08/2018 12:36 AM [facility] RBC 3.26(L) 4.30 - 5.70 10? 6 /uL 10/08/2018 12:36 AM [facility] Hemoglobin 9.0(L) 13.5 - 17.5 g/dL 10/08/2018 12:36 AM [facility] Hematocrit 28.3(L) 39.0 - 50.0 % 10/08/2018 12:36 AM [facility] MCV 86.8 81.0 - 97.0 fL 10/08/2018 12:36 AM [facility] MCH 27.6(L) 28.0 - 34.0 pg 10/08/2018 12:36 AM [facility] MCHC 31.8(L) 32.0 - 36.0 g/dL 10/08/2018 12:36 AM [facility] Platelet Count 101(L) 150 - 400 10? 3 /uL 10/08/2018 12:36 AM [facility] RDW-SD 70.2(H) 36.0 - 50.0 fL 10/08/2018 12:36 AM [facility] RDW-CV 22.5(H) 11.2 - 14.8 % 10/08/2018 12:36 AM [facility] MPV 10.4 9.3 - 12.8 fL 10/08/2018 12:36 AM [facility] nRBC Absolute 0.00 0 10? 3 /uL 10/08/2018 12:36 AM [facility] nRBC Auto 0.0 0 /100 WBC 10/08/2018 12:36 AM [facility] Neutrophils % 64.5 35.0 - 70.0 % 10/08/2018 12:36 AM [facility] Lymphocytes % 14.0(L) 19.7 - 55.1 % 10/08/2018 12:36 AM [facility] Monocytes % 18.4(H) 3.0 - 15.0 % 10/08/2018 12:36 AM [facility] Eosinophils % 1.9 0.0 - 6.0 % 10/08/2018 12:36 AM [facility] Basophil % 0.8 0.0 - 1.5 % 10/08/2018 12:36 AM [facility] Neutrophils Absolute 3.4 1.6 - 7.0 10? 3 /uL 10/08/2018 12:36 AM [facility] Lymphocyte Absolute 0.7(L) 0.8 - 2.9 10? 3 /uL 10/08/2018 12:36 AM [facility] Monocytes Absolute 0.96(H) 0.14 - 0.66 10? 3 /uL 10/08/2018 12:36 AM [facility] Eosinophils Absolute 0.10 0.00 - 0.45 10? 3 /uL 10/08/2018 12:36 AM [facility] Basophils Absolute 0.04 0.00 - 0.06 10? 3 /uL 10/08/2018 12:36 AM [facility] Immature Granulocytes % 0.4 0.0 - 1.0 % 10/08/2018 12:[address] [facility] Blood BLOOD SPECIMEN / Unknown Venipuncture / Unknown 10/08/2018 12:14 AM CDT 10/08/2018 12:32 AM CDT Juancho Rhodes MD LAB - HEMATOLOGY ORD ERABLES Performing Organization Address City/[facility]/ZIP Co de Phone Number [facility] [address] [place] [address] * TYPE + SCREEN PANEL (10/08/2018 12:14 AM CDT) Antibody Screen NEG 9 1:[address] [facility] ABO Rh O POS 10/08/2018 1:[address] [facility] Blood Bank BLOOD SPECIMEN / Unknown Venipuncture / Unknown 10/08/2018 12:14 AM CDT 10/08/2018 12:43 AM CDT Reilly Freeman MD LAB - BLOOD BANK ORD ERABLES Performing Organization Address City/[facility] Co de Phone Number [facility] [address] [place] [address] * (ABNORMAL) CULTURE SPUTUM+GRAM STAIN (10/07/2018 11:30 [...] Landers DO LAB - MICROBIOLOGY O RDERABLES [facility] [address] [place] [address], [facility] [phone] * XR CHEST 1VW PORTABLE (10/07/2018 9:26 AM CDT) Anatomical Region Laterality Modality Chest Radiographic Lynette ging 10/07/2018 11:4 4 AM CDT Impressions 10/07/2018 9:33 PM CDT IMPRESSION: Slight increase in right basilar atelectasis; otherwise no change from prior exam. Dictated by Harshil Lopez M.D. (residential installer). I, Dr. RAMOS NINO M.D. have personally [...] exam. Dictated by Harshil Lopez M.D. (residential installer). I, Dr. RAMOS NINO M.D. have personally reviewed and interpretedthis examination/study. This report was electronically signed by RAMOS NINO M.D. on 10/07/2018 9:33 PM . Henrietta Anshul DO DIAGNOSTIC IMAGING O RDERABLES * (ABNORMAL) BLOOD GASES ARTERIAL (10/07/2018 9:00 AM CDT) pH Arterial 7.48(H) 7.35 - 7.45 10/07/2018 9:10 AM [facility] pCO2 Arterial 37 35 - 45 mmHg 10/07/2018 9:[address] [facility] pO2 Arterial 118(H) 77 - 101 mmHg 10/07/2018 9:10 AM [facility] HCO3 Arterial 26.6(H) 22.0 - 26.0 mmol/L 10/07/2018 9:10 AM T [facility] TCO2 Arterial 27.7 25.0 - 29.0 mmol/L 10/07/2018 9:10 AM [facility] Base Excess Arterial 3.0(H) -2.0 - 2.0 mmol/L 10/07/2018 9:10 AM [facility] Hemoglobin Arterial 8.8(L) 13.5 - 17.5 g/dL 10/07/2018 9:10 AM [facility] Oxyhemoglobin Arterial 97.5 95.0 - 100.0 % 10/07/2018 9:10 AM [facility] Carboxyhemoglobin 0.3 0.0 - 3.0 % 10/07/2018 9:10 AM [facility] Methemoglobin 0.6 0.0 - 2.0 % 10/07/2018 9:10 AM [facility] FI O2 Arterial 40.0 % 10/07/2018 9:10 AM [facility] Blood, arterial ARTERIAL BLOOD SPECIMEN / Unknown Arterial Puncture / Unknown 10/07/2018 9:00 AM CDT 10/07/2018 9:05 AM CDT Henrietta Landers DO LAB - BLOOD GASES OR DERABLES Performing Organization Address [facility]/State/[facility] Co de Phone Number [address] [phone] * XR CHEST 1VW PORTABLE (10/07/2018 4:27 [...] stomach. Dictated by Harshil Lopez MD (residential installer). Dr. AN Londono M.D. have personally reviewed [...] stomach. Dictated by Harshil Lopez MD (residential installer). I, Dr. AN RICO M.D. have personally reviewed and interpreted this examination/study. This report was electronically signed by AN RICO M.D. on 10/07/2018 10:59 AM . Juancho Rhodes MD DIAGNOSTIC IMAGING O RDERABLES * (ABNORMAL) RBC MORPHOLOGY (10/07/2018 12:07 AM CDT) Platelet Estimate Decreased (A) Adequate 10/07/2018 1:[address] [facility] Anisocytosis 1+(A) None 10/07/2018 1:38 AM CDT [facility] Hypochromia Occasiona l(A) None 10/07/2018 1:[address] [facility] Polychromasia Occasiona l(A) None 10/07/2018 1:38 AM CDT [facility] Target Cells 1+(A) None 10/07/2018 1:[address] [facility] Blood BLOOD SPECIMEN / Unknown Venipuncture / Unknown 10/07/2018 12:07 AM CDT 10/07/2018 12:10 AM CDT Juancho Rhodes MD LAB - HEMATOLOGY ORD ERABLES [facility] [address] [place] [address] * PHOSPHORUS BLOOD (10/07/2018 12:07 AM CDT) Phosphorus 3.2 2.3 - 4.7 mg/dL 10/07/2018 12:39 AM CDT [facility] Blood BLOOD SPECIMEN / Unknown Venipuncture / Unknown 10/07/2018 12:07 AM CDT 10/07/2018 12:10 AM CDT Juancho Rhodes MD LAB - CHEMISTRY MIGUEL GOLD Performing Organization Address [facility]/ZIP Co de Phone Number [address] [phone] * MAGNESIUM BLOOD (10/07/2018 12:07 AM CDT) Magnesium 2.0 1.6 - 2.6 mg/dL 10/07/2018 12:39 AM T [facility] Blood BLOOD SPECIMEN / Unknown Venipuncture / Unknown 10/07/2018 12:07 AM CDT 10/07/2018 12:10 AM CDT Juancho Rhodes MD LAB - CHEMISTRY MIGUEL GOLD Performing Organization Address [facility]/ZIP Co de Phone Number [address] [phone] * (ABNORMAL) BASIC METABOLIC PANEL (CALCIUM TOTAL) (10/07/2018 12:07 AM CDT) BUN 8 7 - 26 mg/dL 10/07/2018 12:39 AM [facility] Creatinine 0.5(L) 0.6 - 1.2 mg/dL 10/07/2018 12:39 AM [facility] Sodium 131(L) 136 - 145 mmol/L 10/07/2018 12:39 AM [facility] Potassium 3.7 3.5 - 4.5 mmol/L 10/07/2018 12:39 AM [facility] Chloride 96(L) 98 - 107 mmol/L 10/07/2018 12:39 AM [facility] CO2 26 22 - 29 mmol/L 10/07/2018 12:39 AM [facility] Glucose 101 70 - 115 mg/dL 10/07/2018 12:39 AM [facility] Calcium 8.5 8.4 - 10.2 mg/dL 10/07/2018 12:39 AM [facility] Anion Gap 13 8 - 18 10/07/2018 12:39 AM [facility] BUN/Creatinine Ratio 16 7 - 23 10/07/2018 12:39 AM [facility] Osmolality Calculated 270 270 - 300 mOsm/kg 10/07/2018 12:39 AM [facility] eGFR >60 >60 mL/min/1.7 3 m2 10/07/2018 12:39 AM [facility] Blood BLOOD SPECIMEN / Unknown Venipuncture / Unknown 10/07/2018 12:07 AM CDT 10/07/2018 12:10 AM T Juancho Rhodes MD LAB - CHEMISTRY MIGUEL GOLD [facility] Organization Address City/State/ZIP Co de Phone Number [facility] [address] [place] [address] * (ABNORMAL) CBC W AUTO DIFFERENTIAL (10/07/2018 12:07 AM [facility]) WBC 6.7 3.5 - 10.5 10? 3 /uL 10/07/2018 12:22 AM [facility] RBC 3.39(L) 4.30 - 5.70 10? 6 /uL 10/07/2018 12:22 AM [facility] Hemoglobin 9.3(L) 13.5 - 17.5 g/dL 10/07/2018 12:22 AM [facility] Hematocrit 29.4(L) 39.0 - 50.0 % 10/07/2018 12:22 AM [facility] MCV 86.7 81.0 - 97.0 fL 10/07/2018 12:22 AM [facility] MCH 27.4(L) 28.0 - 34.0 pg 10/07/2018 12:22 AM [facility] MCHC 31.6(L) 32.0 - 36.0 g/dL 10/07/2018 12:22 AM [facility] Platelet Count 85(L) 150 - 400 10? 3 /uL 10/07/2018 12:22 AM [facility] RDW-SD 67.8(H) 36.0 - 50.0 fL 10/07/2018 12:22 AM [facility] RDW-CV 22.2(H) 11.2 - 14.8 % 10/07/2018 12:22 AM [facility] MPV 10.3 9.3 - 12.8 fL 10/07/2018 12:22 AM [facility] nRBC Absolute 0.00 0 10? 3 /uL 10/07/2018 12:22 AM [facility] nRBC Auto 0.0 0 /100 WBC 10/07/2018 12:22 AM [facility] Neutrophils % 70.2(H) 35.0 - 70.0 % 10/07/2018 12:22 AM [facility] Lymphocytes % 13.5(L) 19.7 - 55.1 % 10/07/2018 12:22 AM [facility] Monocytes % 13.7 3.0 - 15.0 % 10/07/2018 12:22 AM [facility] Eosinophils % 1.7 0.0 - 6.0 % 10/07/2018 12:22 AM [facility] Basophil % 0.6 0.0 - 1.5 % 10/07/2018 12:22 AM [facility] Neutrophils Absolute 4.7 1.6 - 7.0 10? 3 /uL 10/07/2018 12:22 AM [facility] Lymphocyte Absolute 0.9 0.8 - 2.9 10? 3 /uL 10/07/2018 12:22 AM [facility] Monocytes Absolute 0.91(H) 0.14 - 0.66 10? 3 /uL 10/07/2018 12:22 AM [facility] Eosinophils Absolute 0.11 0.00 - 0.45 10? 3 /uL 10/07/2018 12:22 AM [facility] Basophils Absolute 0.04 0.00 - 0.06 10? 3 /uL 10/07/2018 12:22 AM [facility] Immature Granulocytes % 0.3 0.0 - 1.0 % 10/07/2018 12:22 AM [facility] Blood BLOOD SPECIMEN / Unknown Venipuncture / Unknown 10/07/2018 12:07 AM CDT 10/07/2018 12:10 AM CDT Juancho Rhodes MD LAB - HEMATOLOGY ORD ERABLES [id number] [place] [address], [facility] [phone] * XR CHEST 1VW PORTABLE (10/06/2018 11:50 [...] Report dictated by Efren Bauman MD (residential installer). Dr. JONAS Londono have personally reviewed and [...] Report dictated by Efren Bauman MD (residential installer). Dr. JONAS Londono have personally reviewed and [...] Report dictated by Efren Bauman M.D. (residential installer). Dr. JONAS Londono have personally reviewed and [...] Report dictated by Efren Bauman M.D. (residential installer). Dr. JONAS Londono have personally reviewed and interpreted this examination/study. This report was electronically signed by JONAS DONATO on 10/06/2018 2:44 PM . Juancho Rhodes MD DIAGNOSTIC IMAGING O RDERABLES * (ABNORMAL) BLOOD GASES ARTERIAL (10/06/2018 9:18 AM CDT) pH Arterial 7.36 7.35 - 7.45 10/06/2018 9:23 AM [facility] pCO2 Arterial 45 35 - 45 mmHg 10/06/2018 9:23 AM [facility] pO2 Arterial 143(H) 77 - 101 mmHg 10/06/2018 9:23 AM [facility] HCO3 Arterial 24.9 22.0 - 26.0 mmol/L 10/06/2018 9:23 AM [facility] TCO2 Arterial 26.3 25.0 - 29.0 mmol/L 10/06/2018 9:23 AM [facility] Base Excess Arterial -0.6 -2.0 - 2.0 mmol/L 10/06/2018 9:23 AM [facility] Hemoglobin Arterial 8.9(L) 13.5 - 17.5 g/dL 10/06/2018 9:23 AM [facility] Oxyhemoglobin Arterial 97.8 95.0 - 100.0 % 10/06/2018 9:23 AM [facility] Carboxyhemoglobin 0.2 0.0 - 3.0 % 10/06/2018 9:23 AM [facility] Methemoglobin 0.4 0.0 - 2.0 % 10/06/2018 9:23 AM [facility] FI O2 Arterial 40.0 % 10/06/2018 9:23 AM [facility] Blood, arterial ARTERIAL BLOOD SPECIMEN / Unknown Arterial Puncture / Unknown 10/06/2018 9:18 AM CDT 10/06/2018 9:20 AM CDT Juancho Rhodes MD LAB - BLOOD GASES OR DERABLES [place] [address] [phone] * (ABNORMAL) RBC MORPHOLOGY (10/06/2018 12:11 AM CDT) Platelet Estimate Decreased (A) Adequate 10/06/2018 1:04 AM [facility] Anisocytosis 1+(A) None 10/06/2018 1:04 AM T [facility] Hypochromia 1+(A) None 10/06/2018 1:04 AM [facility] Polychromasia 1+(A) None 10/06/2018 1:04 AM [facility] Target Cells 1+(A) None 10/06/2018 1:04 AM [facility] Tear Drop Cells Few(A) None 9 1:04 AM [facility] Blood BLOOD SPECIMEN / Unknown Venipuncture / Unknown 10/06/2018 12:11 AM CDT 10/06/2018 12:13 AM CDT Juancho Rhodes MD LAB - HEMATOLOGY ORD ERABLES Performing Organization Address City/State/[facility] Co de Phone Number [facility] [address] [place] [address] * (ABNORMAL) CBC W AUTO DIFFERENTIAL (10/06/2018 12:11 AM CDT) WBC 7.4 3.5 - 10.5 10? 3 /uL 10/06/2018 12:21 AM [facility] RBC 3.48(L) 4.30 - 5.70 10? 6 /uL 10/06/2018 12:21 AM [facility] Hemoglobin 9.4(L) 13.5 - 17.5 g/dL 10/06/2018 12:21 AM [facility] Hematocrit 29.8(L) 39.0 - 50.0 % 10/06/2018 12:21 AM [facility] MCV 85.6 81.0 - 97.0 fL 10/06/2018 12:21 AM [facility] MCH 27.0(L) 28.0 - 34.0 pg 10/06/2018 12:21 AM [facility] MCHC 31.5(L) 32.0 - 36.0 g/dL 10/06/2018 12:21 AM [facility] Platelet Count 69(L) 150 - 400 10? 3 /uL 10/06/2018 12:21 AM [facility] RDW-SD 65.0(H) 36.0 - 50.0 fL 10/06/2018 12:21 AM [facility] RDW-CV 21.3(H) 11.2 - 14.8 % 10/06/2018 12:21 AM [facility] MPV 9.9 9.3 - 12.8 fL 10/06/2018 12:21 AM [facility] nRBC Absolute 0.00 0 10? 3 /uL 10/06/2018 12:21 AM [facility] nRBC Auto 0.0 0 /100 WBC 10/06/2018 12:21 AM [facility] Neutrophils % 72.1(H) 35.0 - 70.0 % 10/06/2018 12:21 AM [facility] Lymphocytes % 11.2(L) 19.7 - 55.1 % 10/06/2018 12:21 AM [facility] Monocytes % 14.6 3.0 - 15.0 % 10/06/2018 12:21 AM [facility] Eosinophils % 1.2 0.0 - 6.0 % 10/06/2018 12:21 AM [facility] Basophil % 0.4 0.0 - 1.5 % 10/06/2018 12:21 AM [facility] Neutrophils Absolute 5.3 1.6 - 7.0 10? 3 /uL 10/06/2018 12:21 AM [facility] Lymphocyte Absolute 0.8 0.8 - 2.9 10? 3 /uL 10/06/2018 12:21 AM [facility] Monocytes Absolute 1.08(H) 0.14 - 0.66 10? 3 /uL 10/06/2018 12:21 AM [facility] Eosinophils Absolute 0.09 0.00 - 0.45 10? 3 /uL 10/06/2018 12:21 AM [facility] Basophils Absolute 0.03 0.00 - 0.06 10? 3 /uL 10/06/2018 12:21 AM [facility] Immature Granulocytes % 0.5 0.0 - 1.0 % 10/06/2018 12:21 AM CDT [facility] Blood BLOOD SPECIMEN / Unknown Venipuncture / Unknown 10/06/2018 12:11 AM CDT 10/06/2018 12:13 AM CDT Juancho Rhodes MD LAB - HEMATOLOGY ORD ASHLEY Performing Organization Address [facility]/ZIP Co de Phone Number [address] [phone] * PHOSPHORUS BLOOD (10/05/2018 11:53 PM CDT) Phosphorus 3.2 2.3 - 4.7 mg/dL 10/06/2018 12:32 AM CDT [facility] Blood BLOOD SPECIMEN / Unknown Venipuncture / Unknown 10/05/2018 11:53 PM CDT 10/05/2018 11:56 PM CDT Juancho Rhodes MD LAB - CHEMISTRY ORDSukhwinder OGLD Performing Organization Address [facility]/ZIP Co de Phone Number [address] [phone] * MAGNESIUM BLOOD (10/05/2018 11:53 PM CDT) Magnesium 1.8 1.6 - 2.6 mg/dL 10/06/2018 12:32 AM CDT [facility] Blood BLOOD SPECIMEN / Unknown Venipuncture / Unknown 10/05/2018 11:53 PM CDT 10/05/2018 11:56 PM CDT Juancho Rhodes MD LAB - CHEMISTRY ORDSukhwinder GOLD Performing Organization Address City/[facility]/ZIP Co de Phone Number [address] [phone] * (ABNORMAL) BASIC METABOLIC PANEL (CALCIUM TOTAL) (10/05/2018 11:53 PM CDT) BUN 6(L) 7 - 26 mg/dL 10/06/2018 12:32 AM CDT [facility] Creatinine 0.5(L) 0.6 - 1.2 mg/dL 10/06/2018 12:32 AM [facility] Sodium 130(L) 136 - 145 mmol/L 10/06/2018 12:32 AM [facility] Potassium 3.8 3.5 - 4.5 mmol/L 10/06/2018 12:32 AM [facility] Chloride 95(L) 98 - 107 mmol/L 10/06/2018 12:32 AM [facility] CO2 24 22 - 29 mmol/L 10/06/2018 12:32 AM [facility] Glucose 101 70 - 115 mg/dL 10/06/2018 12:32 AM [facility] Calcium 9.0 8.4 - 10.2 mg/dL 10/06/2018 12:32 AM [facility] Anion Gap 15 8 - 18 10/06/2018 12:32 AM [facility] BUN/Creatinine Ratio 12 7 - 23 10/06/2018 12:32 AM [facility] Osmolality Calculated 268(L) 270 - 300 mOsm/kg 10/06/2018 12:32 AM [facility] eGFR >60 >60 mL/min/1.7 3 m2 10/06/2018 12:32 AM [facility] Blood BLOOD SPECIMEN / Unknown Venipuncture / Unknown 10/05/2018 11:53 PM CDT 10/05/2018 11:56 PM CDT Juancho Rhodes MD LAB - CHEMISTRY MIGUEL GOLD [address] [phone] * PHOSPHORUS BLOOD (10/05/2018 2:16 AM CDT) Phosphorus 3.0 2.3 - 4.7 mg/dL 10/05/2018 2:43 AM T [facility] Blood BLOOD SPECIMEN / Unknown Lab Venipuncture / Unknown 10/05/2018 2:16 AM CDT 10/05/2018 2:21 AM CDT Emmanuelle Adams APRN-PHARMACEUTICAL SALES LAB - CHEMISTRY ORDERABLES [address] [phone] * (ABNORMAL) MAGNESIUM BLOOD (10/05/2018 2:16 AM CDT) Pathologist [facility] Magnesium 1.4(L) 1.6 - 2.6 mg/dL 10/05/2018 2:43 AM [facility] Blood BLOOD SPECIMEN / Unknown Lab Venipuncture / Unknown 10/05/2018 2:16 AM CDT 10/05/2018 2:21 AM CDT Emmanuelle Adams APRN-[employer]ARMACE[employer]ICAL SALES LAB - CHEMISTRY ORDERABLES [address] [phone] * (ABNORMAL) BASIC METABOLIC PANEL (CALCIUM TOTAL) (10/05/2018 2:16 AM CDT) [facility] BUN 5(L) 7 - 26 mg/dL 10/05/2018 2:43 AM [facility] Creatinine 0.6 0.6 - 1.2 mg/dL 10/05/2018 2:43 AM [facility] Sodium 134(L) 136 - 145 mmol/L 10/05/2018 2:43 AM [facility] Potassium 4.0 3.5 - 4.5 mmol/L 10/05/2018 2:43 AM [facility] Chloride 100 98 - 107 mmol/L 10/05/2018 2:43 AM [facility] CO2 25 22 - 29 mmol/L 10/05/2018 2:43 AM [facility] Glucose 100 70 - 115 mg/dL 10/05/2018 2:43 AM [facility] Calcium 8.9 8.4 - 10.2 mg/dL 10/05/2018 2:43 AM [facility] Anion Gap 13 8 - 18 10/05/2018 2:43 AM [facility] BUN/Creatinine Ratio 8 7 - 23 10/05/2018 2:43 AM [facility] Osmolality Calculated 275 270 - 300 mOsm/kg 10/05/2018 2:43 AM [facility] eGFR >60 >60 mL/min/1.7 3 m2 10/05/2018 2:43 AM [facility] Blood BLOOD SPECIMEN / Unknown Lab Venipuncture / Unknown 10/05/2018 2:16 AM CDT 10/05/2018 2:21 AM CDT Emmanuelle Rocio Adams MANAGER [employer] LAB - CHEMISTRY ORDERABLES Performing Organization Address City/State/[facility] Co de Phone Number [facility] [address] [phone] * (ABNORMAL) CBC W/O DIFFERENTIAL (10/05/2018 2:16 AM CDT) WBC 5.6 3.5 - 10.5 10? 3 /uL 10/05/2018 2:30 AM [facility] RBC 3.38(L) 4.30 - 5.70 10? 6 /uL 10/05/2018 2:30 AM [facility] Hemoglobin 9.1(L) 13.5 - 17.5 g/dL 10/05/2018 2:30 AM [facility] Hematocrit 28.9(L) 39.0 - 50.0 % 10/05/2018 2:30 AM [facility] MCV 85.5 81.0 - 97.0 fL 10/05/2018 2:30 AM [facility] MCH 26.9(L) 28.0 - 34.0 pg 10/05/2018 2:30 AM [facility] MCHC 31.5(L) 32.0 - 36.0 g/dL 10/05/2018 2:30 AM [facility] Platelet Count 55(L) 150 - 400 10? 3 /uL 10/05/2018 2:30 AM [facility] RDW-SD 66.4(H) 36.0 - 50.0 fL 10/05/2018 2:30 AM [facility] RDW-CV 21.4(H) 11.2 - 14.8 % 10/05/2018 2:30 AM [facility] MPV 9.8 9.3 - 12.8 fL 10/05/2018 2:30 AM CDT [facility] nRBC Absolute 0.00 0 10? 3 /uL 10/05/2018 2:30 AM CDT [facility] nRBC Auto 0.0 0 /100 WBC 10/05/2018 2:30 AM CDT [facility] Blood BLOOD SPECIMEN / Unknown Lab Venipuncture / Unknown 10/05/2018 2:16 AM CDT 10/05/2018 2:21 AM CDT Emmanuelle Adams MANAGER [employer]ATIONAL[employer] LAB - HEMATOLOGY ORDERABLES [address] [phone] * (ABNORMAL) RBC MORPHOLOGY (10/04/2018 9:27 AM CDT) Platelet Estimate Decreased (A) Adequate 10/04/2018 10:57 AM CDT [facility] Anisocytosis 1+(A) None 10/04/2018 10:57 AM CDT [facility] Hypochromia 2+(A) None 10/04/2018 10:57 AM CDT [facility] Polychromasia 1+(A) None 10/04/2018 10:57 AM T [facility] Target Cells 1+(A) None 10/04/2018 10:57 AM CDT [facility] Schistocytes Rare(A) None 10/04/2018 10:57 AM CDT [facility] Ovalocytes Rare(A) None 10/04/2018 10:57 AM CDT [facility] Blood BLOOD SPECIMEN / Unknown Lab Venipuncture / Unknown 10/04/2018 9:27 AM CDT 10/04/2018 9:48 AM CDT Emmanuelle Rocio Bryan [employer]NAGER [employer] - HEMATOLOGY ORDERABLES [address] [phone] * (ABNORMAL) CBC W AUTO DIFFERENTIAL (10/04/2018 9:27 AM CDT) WBC 5.6 3.5 - 10.5 10? 3 /uL 10/04/2018 10:20 AM [facility] RBC 3.42(L) 4.30 - 5.70 10? 6 /uL 10/04/2018 10:20 AM [facility] Hemoglobin 9.3(L) 13.5 - 17.5 g/dL 10/04/2018 10:20 AM [facility] Hematocrit 29.2(L) 39.0 - 50.0 % 10/04/2018 10:20 AM [facility] MCV 85.4 81.0 - 97.0 fL 10/04/2018 10:20 AM [facility] MCH 27.2(L) 28.0 - 34.0 pg 10/04/2018 10:20 AM [facility] MCHC 31.8(L) 32.0 - 36.0 g/dL 10/04/2018 10:20 AM [facility] Platelet Count 46(L) 150 - 400 10? 3 /uL 10/04/2018 10:20 AM [facility] RDW-SD 67.0(H) 36.0 - 50.0 fL 10/04/2018 10:20 AM [facility] RDW-CV 21.5(H) 11.2 - 14.8 % 10/04/2018 10:20 AM [facility] MPV 10.7 9.3 - 12.8 fL 10/04/2018 10:20 AM [facility] nRBC Absolute 0.00 0 10? 3 /uL 10/04/2018 10:20 AM [facility] nRBC Auto 0.0 0 /100 WBC 10/04/2018 10:20 AM [facility] Neutrophils % 71.0(H) 35.0 - 70.0 % 10/04/2018 10:20 AM [facility] Lymphocytes % 13.5(L) 19.7 - 55.1 % 10/04/2018 10:20 AM [facility] Monocytes % 12.8 3.0 - 15.0 % 10/04/2018 10:20 AM [facility] Eosinophils % 1.8 0.0 - 6.0 % 10/04/2018 10:[address] [facility] Basophil % 0.5 0.0 - 1.5 % 10/04/2018 10:20 AM T [facility] Neutrophils Absolute 3.9 1.6 - 7.0 10? 3 /uL 10/04/2018 10:20 AM T [facility] Lymphocyte Absolute 0.8 0.8 - 2.9 10? 3 /uL 10/04/2018 10:20 AM T [facility] Monocytes Absolute 0.71(H) 0.14 - 0.66 10? 3 /uL 10/04/2018 10:20 AM T [facility] Eosinophils Absolute 0.10 0.00 - 0.45 10? 3 /uL 10/04/2018 10:20 AM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
--- OUTSIDE RECORDS SUMMARY | 2024-06-27 10:31 | XMS_ITS | Encounter Summary ---
Author Organization [facility] Address [address] [place] [address] Care Team Providers Care Comsec Manager Name Role Phone Unavailable Primary Care Provider Unavailabl e Encounter Details Date Type Department Care Team (Late st Contact Info) Description 10/14/2018 11:59 PM CDT Anesthesia Event [facility] [address] [place] [address] Christian Adams, DO [address] [place] [address] Anesthesia Record Procedure Summary Procedure Name Responsible [...] this encounter Consult Notes * Laure Page, BUILDING DRAFTING OFFICER-UNIT MANAGER RN - 10/11/2018 1:09 PM CDT ANESTHESIA PREOPERATIVE [...] off 10/11/2018 and extubated; currently 6L per PA -PIVsx2 -at this time, pt remains confused [...] of ischemic heart disease? no History of [place] History of positive stress test Current chest [...] 2 mg/dl? no RCRI correlation with MACE (www.mdcalc.com/yuosafy-fhuxvfs-yqqk-crdwv-cqv-ihvceyaty-risk, originally validated by [employer]. 1999;100:5969-8675) 0 Points - 0.4% risk 1 Point [...] place interrogation report in chart Information needed (field technician, mode, indication for CIED, battery life, magnet function, PM dependence): Call PAT director or boardinghouse keeper to discuss any patient with a CIED Timing of interrogation should be: Within 1 year for PM and Within 6 months for AICD (Source: 2010 The Heart Rhythm Society (HRS)/[place] [employer] Anesthesiologists (ASA) Expert Consensus Statement [...] which blood bank will automatically send to [facility]. [facility] requires a 2nd confirmatory T&S before releasing crossmatched blood) Previous blood transfusion? no - If patient had a previous transfusion and likelihood of surgical blood loss is >250ml or a high risk procedure, then every attempt should be made to obtain a T&S in PAT, otherwise patient should be instructed to arrive early or not scheduled as a first start case. Please call dog raiser to discuss plan and document here: Patients [...] patients with DM, refer to PCP or director toxicology for BG >200 - CMP (instead of [...] Info) Description 08/25/2024 1:10 PM CDT Documentation [address] [phone] 08/25/2024 1:20 PM CDT Office Visit [address] [phone] Migue Reeder MD [address] [place] [address] [phone] documented as of this encounter Visit Diagnoses Not on filedocumented in this encounter
--- OUTSIDE RECORDS SUMMARY | 2024-06-27 10:31 | XMS_ITS | Continuity of Care Document ---
Author Organization [facility] Address [address] [place] [address] [place] [address] Phone Care Team Providers Care Assembler Filters Name Role Phone Jose Abdi MD Unavailable Unavailable Allergies, Adverse Reactions, Alerts Substance Reaction Status Criticality No Known Allergies Active No Inform ation Procedures Procedure Date OFFICE/OUTPATIENT VISIT, [facility] Advance Directives Directive Yes / No Effective Date File Name No Information Encounters Encounter Description Practice Location Reason(s) For Visit Diagnoses Date Provider Providers Copied on Encounter OFFICE/OUTPAT IENT VISIT, [facility], [address], [place], [address], tel:[phone] [facility] liver (chief complaint)B PH1 (chief complaint) Hepatic failure without comaCirrhosis of liverBPH w/o lower urinary tract symptom 1 Jin Garcia. [address], [address], [place], [address]. tel:[phone] Family History Family Member Type Diagnosis Age At Onset No Information Payers Payer name Insurance type Covered democrat ID Authoriza tion(s) No Information Social History [...] When asked why he is on flomax, rahultessy states that I don't know. I am not a doctor. Plan Of Treatment Date Type Action Status No Information History Of Present Illness Encounter Date Complaint History Of Prese nt Illness liver Pt presents to [facility] for new patient visit Pt states that [...] He denies any confusion or headache BPH1 Pt also takes fl omax daily. When asked why he is on flomax, he again states that I don't know. I am not a doctor. Instructions Date Instruction Additional Infor mation No Information Assessments Type Assessment Date assessment Hepatic failure without coma Mar assessment Cirrhosis of liver assessment BPH w/o lower urinary tract symp denisha Mental Status Date Cognitive Assessment Orientation - Carmel ed to time, place, person, situation.
--- OUTSIDE RECORDS SUMMARY | 2024-06-27 10:31 | XMS_ITS | Encounter Summary ---
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 PHOSPHORUS BLOOD (10/12/2018 11:59 PM CDT) Phosphorus 2.9 2.3 - 4.7 mg/dL 10/13/2018 12:33 AM CDT [facility] Blood BLOOD SPECIMEN / Unknown Venipuncture / Unknown 10/12/2018 11:59 PM CDT 10/13/2018 12:07 AM CDT Juancho Rhodes MD LAB - CHEMISTRY ORDSukhwinder GOLD [facility] [address] [place] [address] * MAGNESIUM BLOOD (10/12/2018 11:59 PM CDT) Pathologist [facility] Magnesium 2.0 1.6 - 2.6 mg/dL 10/13/2018 1:01 AM [facility] Blood BLOOD SPECIMEN / Unknown Venipuncture / Unknown 10/12/2018 11:59 PM CDT 10/13/2018 12:07 AM CDT Juancho Rhodes MD LAB - CHEMISTRY MIGUEL MAUROEMILE Performing Organization Address [facility]/ZIP Co de Phone Number [address] [phone] * (ABNORMAL) BASIC METABOLIC PANEL (CALCIUM TOTAL) (10/12/2018 11:59 PM CDT) Pathologist [facility] BUN 6(L) 7 - 26 mg/dL 10/13/2018 12:33 AM [facility] Creatinine 0.5(L) 0.6 - 1.2 mg/dL 10/13/2018 12:33 AM [facility] Sodium 137 136 - 145 mmol/L 10/13/2018 12:33 AM [facility] Potassium 3.5 3.5 - 4.5 mmol/L 10/13/2018 12:33 AM [facility] Chloride 105 98 - 107 mmol/L 10/13/2018 12:33 AM [facility] CO2 22 22 - 29 mmol/L 10/13/2018 12:33 AM [facility] Glucose 107 70 - 115 mg/dL 10/13/2018 12:33 AM [facility] Calcium 8.7 8.4 - 10.2 mg/dL 10/13/2018 12:33 AM [facility] Anion Gap 14 8 - 18 10/13/2018 12:33 AM [facility] BUN/Creatinine Ratio 12 7 - 23 10/13/2018 12:33 AM [facility] Osmolality Calculated 282 270 - 300 mOsm/kg 10/13/2018 12:33 AM [facility] eGFR >60 >60 mL/min/1.7 3 m2 10/13/2018 12:33 AM [facility] Blood BLOOD SPECIMEN / Unknown Venipuncture / Unknown 10/12/2018 11:59 PM CDT 10/13/2018 12:07 AM CDT Juancho Rhodes MD LAB - CHEMISTRY MIGUEL GOLD [facility] Organization Address City/State/ZIP Co de Phone Number [facility] [address] [phone] * (ABNORMAL) CBC W AUTO DIFFERENTIAL (10/12/2018 11:59 PM CDT) WBC 9.6 3.5 - 10.5 10? 3 /uL 10/13/2018 1:07 AM [facility] RBC 3.57(L) 4.30 - 5.70 10? 6 /uL 10/13/2018 1:07 AM [facility] Hemoglobin 10.0(L) 13.5 - 17.5 g/dL 10/13/2018 1:07 AM [facility] Hematocrit 31.3(L) 39.0 - 50.0 % 10/13/2018 1:07 AM [facility] MCV 87.7 81.0 - 97.0 fL 10/13/2018 1:07 AM [facility] MCH 28.0 28.0 - 34.0 pg 10/13/2018 1:07 AM [facility] MCHC 31.9(L) 32.0 - 36.0 g/dL 10/13/2018 1:07 AM [facility] Platelet Count 239 150 - 400 10? 3 /uL 10/13/2018 1:07 AM [facility] Comment:Confirmed by repeat analysis. RDW-SD 72.7(H) 36.0 - 50.0 fL 10/13/2018 1:07 AM [facility] RDW-CV 22.5(H) 11.2 - 14.8 % 10/13/2018 1:07 AM [facility] MPV 10.3 9.3 - 12.8 fL 10/13/2018 1:07 AM [facility] nRBC Absolute 0.00 0 10? 3 /uL 10/13/2018 1:07 AM [facility] nRBC Auto 0.0 0 /100 WBC 10/13/2018 1:07 AM [facility] Neutrophils % 70.5(H) 35.0 - 70.0 % 10/13/2018 1:07 AM [facility] Lymphocytes % 13.6(L) 19.7 - 55.1 % 10/13/2018 1:07 AM [facility] Monocytes % 14.1 3.0 - 15.0 % 10/13/2018 1:07 AM [facility] Eosinophils % 0.6 0.0 - 6.0 % 10/13/2018 1:07 AM [facility] Basophil % 0.8 0.0 - 1.5 % 10/13/2018 1:07 AM [facility] Neutrophils Absolute 6.7 1.6 - 7.0 10? 3 /uL 10/13/2018 1:07 AM [facility] Lymphocyte Absolute 1.3 0.8 - 2.9 10? 3 /uL 10/13/2018 1:07 AM [facility] Monocytes Absolute 1.35(H) 0.14 - 0.66 10? 3 /uL 10/13/2018 1:07 AM [facility] Eosinophils Absolute 0.06 0.00 - 0.45 10? 3 /uL 10/13/2018 1:07 AM [facility] Basophils Absolute 0.08(H) 0.00 - 0.06 10? 3 /uL 10/13/2018 1:07 AM [facility] Immature Granulocytes % 0.4 0.0 - 1.0 % 10/13/2018 1:07 AM [facility] Blood BLOOD SPECIMEN / Unknown Venipuncture / Unknown 10/12/2018 11:59 PM CDT 10/13/2018 12:07 AM [facility] Juancho Rhodes MD LAB - HEMATOLOGY ORD ERABLES [facility] [address] [phone] * XR CHEST 1VW PORTABLE (10/12/2018 4:07 [...] 7.35 - 7.45 10/12/2018 1:41 PM CDT [facility] pCO2 Arterial 32(L) 35 - 45 mmHg 10/12/2018 1:41 PM CDT [facility] pO2 Arterial 75(L) 77 - 101 mmHg 10/12/2018 1:41 PM [facility] HCO3 Arterial 25.6 22.0 - 26.0 mmol/L 10/12/2018 1:41 PM [facility] TCO2 Arterial 26.6 25.0 - 29.0 mmol/L 10/12/2018 1:41 PM [facility] Base Excess Arterial 3.1(H) -2.0 - 2.0 mmol/L 10/12/2018 1:41 PM [facility] Hemoglobin Arterial 10.9(L) 13.5 - 17.5 g/dL 10/12/2018 1:41 PM [facility] Oxyhemoglobin Arterial 94.2(L) 95.0 - 100.0 % 10/12/2018 1:41 PM [facility] Carboxyhemoglobin 0.3 0.0 - 3.0 % 10/12/2018 1:41 PM [facility] Methemoglobin 0.2 0.0 - 2.0 % 10/12/2018 1:41 PM [facility] FI O2 Arterial 21.0 % 10/12/2018 1:41 PM [facility] Blood, arterial ARTERIAL BLOOD SPECIMEN / Unknown Arterial Puncture / Unknown 10/12/2018 1:27 PM CDT 10/12/2018 1:34 PM CDT Juancho Rhodes MD LAB - BLOOD GASES OR DERABLES Performing Organization Address [facility]/State/[facility] Co de Phone Number [address] [phone] * XR CHEST 1VW PORTABLE (10/12/2018 4:15 [...] Adequate Adequate 019 1:22 AM CDT [facility] Anisocytosis 1+(A) None 10/12/2018 1:22 AM CDT [facility] Poikilocytes Occasional( A) None 10/12/2018 1:22 AM CDT [facility] Hypochromia 1+(A) None 10/12/2018 1:22 AM CDT [facility] Polychromasia Occasional( A) None 10/12/2018 1:22 AM CDT [facility] Target Cells 1+(A) None 10/12/2018 1:22 AM CDT [facility] Schistocytes Occasional( A) None 10/12/2018 1:22 AM CDT [facility] Ovalocytes Occasional( A) None 10/12/2018 1:22 AM CDT [facility] Blood BLOOD SPECIMEN / Unknown Venipuncture / Unknown 10/12/2018 12:06 AM CDT 10/12/2018 12:14 AM CDT Juancho Rhodes MD LAB - HEMATOLOGY ORD ERABLES Performing Organization Address City/[facility]/ZIP Co de Phone Number [address] [phone] * PHOSPHORUS BLOOD (10/12/2018 12:06 AM CDT) Phosphorus 2.8 2.3 - 4.7 mg/dL 10/12/2018 12:51 AM CDT [facility] Blood BLOOD SPECIMEN / Unknown Venipuncture / Unknown 10/12/2018 12:06 AM CDT 10/12/2018 12:14 AM CDT Juancho Rhodes MD LAB - CHEMISTRY ORDE RABEMILE [address] [phone] * (ABNORMAL) MAGNESIUM BLOOD (10/12/2018 12:06 AM CDT) Magnesium 1.2(L) 1.6 - 2.6 mg/dL 10/12/2018 12:58 AM CDT [facility] Blood BLOOD SPECIMEN / Unknown Venipuncture / Unknown 10/12/2018 12:06 AM CDT 10/12/2018 12:14 AM CDT Juancho Rhodes MD LAB - CHEMISTRY MIGUEL GOLD [address] [phone] * (ABNORMAL) BASIC METABOLIC PANEL (CALCIUM TOTAL) (10/12/2018 12:06 AM CDT) BUN 6(L) 7 - 26 mg/dL 10/12/2018 12:57 AM [facility] Creatinine 0.4(L) 0.6 - 1.2 mg/dL 10/12/2018 12:57 AM [facility] Sodium 138 136 - 145 mmol/L 10/12/2018 12:57 AM [facility] Potassium 3.0(L) 3.5 - 4.5 mmol/L 10/12/2018 12:57 AM [facility] Chloride 109(H) 98 - 107 mmol/L 10/12/2018 12:57 AM [facility] CO2 22 22 - 29 mmol/L 10/12/2018 12:57 AM [facility] Glucose 108 70 - 115 mg/dL 10/12/2018 12:57 AM [facility] Calcium 7.3(L) 8.4 - 10.2 mg/dL 10/12/2018 12:57 AM [facility] Anion Gap 10 8 - 18 10/12/2018 12:57 AM [facility] BUN/Creatinine Ratio 15 7 - 23 10/12/2018 12:57 AM [facility] Osmolality Calculated 284 270 - 300 mOsm/kg 10/12/2018 12:57 AM [facility] eGFR >60 >60 mL/min/1.7 3 m2 10/12/2018 12:57 AM [facility] Blood BLOOD SPECIMEN / Unknown Venipuncture / Unknown 10/12/2018 12:06 AM CDT 10/12/2018 12:14 AM CDT Juancho Rhodes MD LAB - CHEMISTRY MIGUEL GOLD [facility] [address] [phone] * (ABNORMAL) CBC W AUTO DIFFERENTIAL (10/12/2018 12:06 AM T) WBC 7.5 3.5 - 10.5 10? 3 /uL 10/12/2018 12:31 AM [facility] RBC 3.17(L) 4.30 - 5.70 10? 6 /uL 10/12/2018 12:31 AM [facility] Hemoglobin 8.9(L) 13.5 - 17.5 g/dL 10/12/2018 12:31 AM [facility] Hematocrit 28.0(L) 39.0 - 50.0 % 10/12/2018 12:31 AM [facility] MCV 88.3 81.0 - 97.0 fL 10/12/2018 12:31 AM [facility] MCH 28.1 28.0 - 34.0 pg 10/12/2018 12:31 AM [facility] MCHC 31.8(L) 32.0 - 36.0 g/dL 10/12/2018 12:31 AM [facility] Platelet Count 155 150 - 400 10? 3 /uL 10/12/2018 12:31 AM [facility] RDW-SD 72.6(H) 36.0 - 50.0 fL 10/12/2018 12:31 AM [facility] RDW-CV 22.2(H) 11.2 - 14.8 % 10/12/2018 12:31 AM [facility] MPV 10.3 9.3 - 12.8 fL 10/12/2018 12:31 AM [facility] nRBC Absolute 0.00 0 10? 3 /uL 10/12/2018 12:31 AM [facility] nRBC Auto 0.0 0 /100 WBC 10/12/2018 12:31 AM [facility] Neutrophils % 73.9(H) 35.0 - 70.0 % 10/12/2018 12:31 AM [facility] Lymphocytes % 10.2(L) 19.7 - 55.1 % 10/12/2018 12:31 AM [facility] Monocytes % 14.2 3.0 - 15.0 % 10/12/2018 12:31 AM [facility] Eosinophils % 0.5 0.0 - 6.0 % 10/12/2018 12:31 AM [facility] Basophil % 0.7 0.0 - 1.5 % 10/12/2018 12:31 AM [facility] Neutrophils Absolute 5.6 1.6 - 7.0 10? 3 /uL 10/12/2018 12:31 AM [facility] Lymphocyte Absolute 0.8 0.8 - 2.9 10? 3 /uL 10/12/2018 12:31 AM [facility] Monocytes Absolute 1.07(H) 0.14 - 0.66 10? 3 /uL 10/12/2018 12:31 AM [facility] Eosinophils Absolute 0.04 0.00 - 0.45 10? 3 /uL 10/12/2018 12:31 AM [facility] Basophils Absolute 0.05 0.00 - 0.06 10? 3 /uL 10/12/2018 12:31 AM [facility] Immature Granulocytes % 0.5 0.0 - 1.0 % 10/12/2018 12:31 AM [facility] Blood BLOOD SPECIMEN / Unknown Venipuncture / Unknown 10/12/2018 12:06 AM CDT 10/12/2018 12:14 AM CDT Juancho Rhodes MD LAB - HEMATOLOGY STACEY RAMIREZ Performing Organization Address City/State/[facility] Co de Phone Number [facility] [address] [place] [address] * AMMONIA (10/12/2018 12:06 AM CDT) Ammonia 31 11 - 64 umol/L 10/12/2018 12:44 AM [facility] Blood BLOOD SPECIMEN / Unknown Lab Venipuncture / Unknown 10/12/2018 12:06 AM CDT 10/12/2018 12:17 AM CDT Juancho Rhodes MD LAB - CHEMISTRY MIGUEL GOLD [facility] [address] [phone] * (ABNORMAL) HEPATIC FUNCTION PANEL (10/12/2018 12:06 AM CDT) [facility] Protein Total 5.0(L) 6.0 - 8.3 g/dL 019 12:51 AM T [facility] Albumin 1.6(L) 3.4 - 5.0 g/dL 10/12/2018 12:51 AM [facility] Bilirubin Total 2.8(H) 0.2 - 1.2 mg/dL 09/17 12:51 AM [facility] Bilirubin Conjugated 2.0(H) 0.0 - 0.5 mg/dL 10/12/2018 12:51 AM [facility] Bilirubin Unconjugated 0.8 Unconjugated Bilirubin is a calculated value: Reference ranges have not been established. mg/dL 10/12/2018 12:51 AM [facility] Alkaline Phosphatase 103 40 - 150 Units/L 10/12/2018 12:51 AM [facility] ALT 26 0 - 55 Units/L 10/12/2018 12:51 AM [facility] AST 105(H) 5 - 34 Units/L 10/12/2018 12:51 AM [facility] Albumin/Globulin Ratio 0.5(L) 1.1 - 2.3 10/12/2018 12:51 AM [facility] Blood BLOOD SPECIMEN / Unknown Lab Venipuncture / Unknown 10/12/2018 12:06 AM CDT 10/12/2018 12:17 AM CDT Juancho Rhodes MD LAB - CHEMISTRY MIGUEL GOLD [facility] [address] [place] [address] * HIV-1 HIV-2 ANTIGEN/ANTIBODY (10/12/2018 12:06 AM CDT) [facility] HIV Antigen/Antibod y 1 & 2 Non-reacti ve Non-react maureen 10/12/2018 1:05 AM CDT [facility] Comment: Neither HIV-1 p24 Antigen nor HIV-1/HIV-2 Antibodies are detected. ? Blood BLOOD SPECIMEN / Unknown Lab Venipuncture / Unknown 10/12/2018 12:06 AM CDT 10/12/2018 12:17 AM CDT Juancho Rhodes MD LAB - HEMATOLOGY ORD ERABLES Performing Organization Address [facility] Co de Phone Number [address] [phone] * SYPHILIS ANTIBODY CASCADING REFLEX (10/12/2018 12:06 AM CDT) Treponema pallidum Antibody Non-react maureen Non-react maureen 10/12/2018 1:05 AM CDT [facility] Comment: No Laboratory evidence of syphilis infection. ?? Note: ??Circulating antibodies may be low or undetectable in early infection. ??If recent exposure is suspected, re-draw sample in 2-4 weeks and repeat testing. Blood BLOOD SPECIMEN / Unknown Lab Venipuncture / Unknown 10/12/2018 12:06 AM CDT 10/12/2018 12:17 AM CDT Juancho Rhodes MD LAB - SEROLOGY ORDER WILLIAN Performing Organization Address [facility]/[place] de Phone Number [address] [phone] * VITAMIN B1 (10/12/2018 12:06 AM CDT) Vitamin B1 Whole Blood 175.9 66.5 - 200.0 nmol/L 10/17/2018 6:15 AM CDT [facility] ([facility]) Comment: This test was developed and its performance characteristics determined by [facility]. It has not been cleared or approved by the Food and Drug Administration. Blood BLOOD SPECIMEN / Unknown Lab Venipuncture / Unknown 10/12/2018 12:06 AM CDT 10/12/2018 12:17 AM CDT Narrative [facility] ([facility]) - 10/17/2018 6:15 AM CDT Performed at: ??01 - [facility] [address] ??[id number] Office Workforce Planner: Alex Wilcox MD, Phone: ??[phone] Juancho Rhodes MD LAB - CHEMISTRY MIGUEL GOLD [facility] ([facility]) [address] [place] [phone] * HOMOCYSTEINE BLOOD QUANTITATIVE (10/12/2018 12:06 AM CDT) Homocysteine 5.2 4.4 - 16.2 umol/L 10/12/2018 1:24 AM CDT [facility] Blood BLOOD SPECIMEN / Unknown Lab Venipuncture / Unknown 10/12/2018 12:06 AM CDT 10/12/2018 12:17 AM CDT Juancho Rhodes MD LAB - CHEMISTRY MIGUEL GOLD Performing Organization Address [facility]/ZIP Co de Phone Number [address] [phone] * (ABNORMAL) FOLATE (10/12/2018 12:06 AM CDT) Folate 6.5(L) 7.0 - 31.4 ng/mL 10/12/2018 1:59 AM CDT [facility] Blood BLOOD SPECIMEN / Unknown Lab Venipuncture / Unknown 10/12/2018 12:06 AM CDT 10/12/2018 12:17 AM CDT Juancho Rhodes MD LAB - CHEMISTRY MIGUEL GOLD Performing Organization Address [facility]/ZIP Co de Phone Number [address] [phone] * XR CHEST 1VW (10/11/2018 5:12 AM [...] Estimate Adequate Adequate 019 1:49 AM CDT [facility] Anisocytosis 1+(A) None 10/11/2018 1:49 AM CDT [facility] Hypochromia 1+(A) None 10/11/2018 1:49 AM CDT [facility] Polychromasia Occasional( A) None 10/11/2018 1:49 AM CDT [facility] Target Cells 1+(A) None 10/11/2018 1:49 AM CDT [facility] Ovalocytes Occasional( A) None 10/11/2018 1:49 AM CDT [facility] Blood BLOOD SPECIMEN / Unknown Venipuncture / Unknown 10/11/2018 12:04 AM CDT 10/11/2018 12:16 AM CDT Juancho Rhodes MD LAB - HEMATOLOGY ORD ERABLES [address] [phone] * PHOSPHORUS BLOOD (10/11/2018 12:04 AM CDT) Pathologist [facility] Phosphorus 3.6 2.3 - 4.7 mg/dL 10/11/2018 12:36 AM CDT [facility] Blood BLOOD SPECIMEN / Unknown Venipuncture / Unknown 10/11/2018 12:04 AM CDT 10/11/2018 12:16 AM CDT Juancho Rhodes MD LAB - CHEMISTRY ORDE RABEMILE [address] [phone] * (ABNORMAL) MAGNESIUM BLOOD (10/11/2018 12:04 AM CDT) Pathologist [facility] Magnesium 1.4(L) 1.6 - 2.6 mg/dL 10/11/2018 12:36 AM CDT [facility] Blood BLOOD SPECIMEN / Unknown Venipuncture / Unknown 10/11/2018 12:04 AM CDT 10/11/2018 12:16 AM CDT Juancho Rhodes MD LAB - CHEMISTRY MIGUEL GOLD Performing Organization Address City/[facility] Co de Phone Number [facility] [address] [phone] * (ABNORMAL) BASIC METABOLIC PANEL (CALCIUM TOTAL) (10/11/2018 12:04 AM CDT) BUN 5(L) 7 - 26 mg/dL 10/11/2018 12:36 AM [facility] Creatinine 0.4(L) 0.6 - 1.2 mg/dL 10/11/2018 12:36 AM [facility] Sodium 135(L) 136 - 145 mmol/L 10/11/2018 12:36 AM [facility] Potassium 3.5 3.5 - 4.5 mmol/L 10/11/2018 12:36 AM [facility] Chloride 101 98 - 107 mmol/L 10/11/2018 12:36 AM [facility] CO2 26 22 - 29 mmol/L 10/11/2018 12:36 AM [facility] Glucose 142(H) 70 - 115 mg/dL 10/11/2018 12:36 AM [facility] Calcium 7.9(L) 8.4 - 10.2 mg/dL 10/11/2018 12:36 AM [facility] Anion Gap 12 8 - 18 10/11/2018 12:36 AM [facility] BUN/Creatinine Ratio 13 7 - 23 10/11/2018 12:36 AM [facility] Osmolality Calculated 280 270 - 300 mOsm/kg 10/11/2018 12:36 AM [facility] eGFR >60 >60 mL/min/1.7 3 m2 10/11/2018 12:36 AM [facility] Blood BLOOD SPECIMEN / Unknown Venipuncture / Unknown 10/11/2018 12:04 AM CDT 10/11/2018 12:16 AM CDT Juancho Rhodes MD LAB - CHEMISTRY MIGUEL GOLD [facility] [address] [phone] * (ABNORMAL) CBC W AUTO DIFFERENTIAL (10/11/2018 12:04 AM [facility] WBC 5.4 3.5 - 10.5 10? 3 /uL 10/11/2018 1:11 AM [facility] RBC 3.49(L) 4.30 - 5.70 10? 6 /uL 10/11/2018 1:11 AM [facility] Hemoglobin 9.7(L) 13.5 - 17.5 g/dL 10/11/2018 1:11 AM [facility] Hematocrit 30.8(L) 39.0 - 50.0 % 10/11/2018 1:11 AM [facility] MCV 88.3 81.0 - 97.0 fL 10/11/2018 1:11 AM [facility] MCH 27.8(L) 28.0 - 34.0 pg 10/11/2018 1:11 AM [facility] MCHC 31.5(L) 32.0 - 36.0 g/dL 10/11/2018 1:11 AM [facility] Platelet Count 157 150 - 400 10? 3 /uL 10/11/2018 1:11 AM [facility] RDW-SD 70.9(H) 36.0 - 50.0 fL 10/11/2018 1:11 AM [facility] RDW-CV 22.0(H) 11.2 - 14.8 % 10/11/2018 1:11 AM [facility] MPV 10.7 9.3 - 12.8 fL 10/11/2018 1:11 AM [facility] nRBC Absolute 0.00 0 10? 3 /uL 10/11/2018 1:11 AM [facility] nRBC Auto 0.0 0 /100 WBC 10/11/2018 1:11 AM [facility] Neutrophils % 54.7 35.0 - 70.0 % 10/11/2018 1:11 AM [facility] Lymphocytes % 20.1 19.7 - 55.1 % 10/11/2018 1:11 AM [facility] Monocytes % 19.8(H) 3.0 - 15.0 % 10/11/2018 1:11 AM [facility] Eosinophils % 3.3 0.0 - 6.0 % 10/11/2018 1:11 AM [facility] Basophil % 1.7(H) 0.0 - 1.5 % 10/11/2018 1:11 AM [facility] Neutrophils Absolute 3.0 1.6 - 7.0 10? 3 /uL 10/11/2018 1:11 AM [facility] Lymphocyte Absolute 1.1 0.8 - 2.9 10? 3 /uL 10/11/2018 1:11 AM [facility] Monocytes Absolute 1.07(H) 0.14 - 0.66 10? 3 /uL 10/11/2018 1:11 AM [facility] Eosinophils Absolute 0.18 0.00 - 0.45 10? 3 /uL 10/11/2018 1:11 AM [facility] Basophils Absolute 0.09(H) 0.00 - 0.06 10? 3 /uL 10/11/2018 1:11 AM [facility] Immature Granulocytes % 0.4 0.0 - 1.0 % 10/11/2018 1:11 AM [facility] Blood BLOOD SPECIMEN / Unknown Venipuncture / Unknown 10/11/2018 12:04 AM CDT 10/11/2018 12:16 AM CDT Juancho Rhodes MD LAB - HEMATOLOGY ORD ERABLES [facility] [address] [place] [address] * EKG 12-LEAD (10/10/2018 4:26 PM CDT) Ventricular Rate 64 BPM [facility] MUSE Atrial Rate 64 BPM [facility] MUSE P-R Interval 170 ms [facility] MUSE QRS Duration ms 92 ms [facility] MUSE Q-T Interval ms 444 ms [facility] MUSE QTC Calculation (Bezet) 458 ms [facility] MUSE Calculated P [place] 25 degrees [facility] MUSE Calculated R [place] 35 degrees [facility] MUSE Calculated T [place] 29 degrees [facility] MUSE Interpretation EKG NORMAL SINUS RHYTHM NORMAL ECG WHEN COMPARED WITH ECG OF 03-OCT-2018 14:57, NO SIGNIFICANT CHANGE WAS FOUND Confirmed by Reji HERNANDEZ, KEIRA ([id number]), business editor KACI ARANDA ([id number]) on 10/16/2018 1:49:31 PM [facility] MUSE 10/10/2018 4:26 PM CDT 10/16/2018 1:49 PM CDT Juancho Rhodes MD ECG ORDERABLES [facility] MUSE * XR CHEST 1VW PORTABLE (10/10/2018 [...] 5.3 10? 3 /uL 10/10/2018 1:37 AM [facility] Total Cell Count 100 10/11/19 19 1:37 AM [facility] Neutrophils Absolute Manual 3.92 1.60 - 7.00 10? 3 /uL 10/10/2018 1:37 AM [facility] Comment:(BANDS+SEGS) x WBC = NEUT # (ANC) Lymphocyte Absolute Manual 0.58(L) 0.80 - 2.90 10? 3 /uL 10/10/2018 1:37 AM [facility] Monocytes Absolute Manual 0.64 0.14 - 0.66 10? 3 /uL 10/10/2018 1:37 AM [facility] Eosinophils Absolute Manual 0.11 0.00 - 0.22 10? 3 /uL 10/10/2018 1:37 AM [facility] Neutrophil % Manual 74(H) 30 - 60 % 10/10/2018 1:37 AM [facility] Lymphocyte % Manual 11(L) 20 - 45 % 10/10/2018 1:37 AM [facility] Monocytes % Manual 12(H) 2 - 10 % 10/10/2018 1:37 AM [facility] Eosinophils % Manual 2 1 - 6 % 10/10/2018 1:37 AM [facility] Atypical Lymphocyte % Manual 1(H) 0 % 10/10/2018 1:37 AM [facility] Platelet Estimate Slightly Decreased(A ) Adequate 10/10/2018 1:37 AM [facility] Anisocytosis 1+(A) None 10/10/2018 1:37 AM [facility] Hypochromia 1+(A) None 10/10/2018 1:37 AM [facility] Polychromasia Few(A) None 10/10/2018 1:37 AM [facility] Target Cells 1+(A) None 10/10/2018 1:37 AM [facility] Ovalocytes 1+(A) None 10/10/2018 1:37 AM [facility] Blood BLOOD SPECIMEN / Unknown Venipuncture / Unknown 10/10/2018 12:03 AM CDT 10/10/2018 12:32 AM CDT Juancho Rhodes MD LAB - HEMATOLOGY ORD ERABLES [facility] [address] [phone] * PHOSPHORUS BLOOD (10/10/2018 12:03 AM CDT) Phosphorus 3.2 2.3 - 4.7 mg/dL 10/10/2018 1:00 AM T [facility] Blood BLOOD SPECIMEN / Unknown Venipuncture / Unknown 10/10/2018 12:03 AM CDT 10/10/2018 12:37 AM CDT Juancho Rhodes MD LAB - CHEMISTRY ORDSukhwinder GOLD Performing Organization Address [facility]/ZIP Co de Phone Number [address] [phone] * (ABNORMAL) MAGNESIUM BLOOD (10/10/2018 12:03 AM CDT) Magnesium 1.5(L) 1.6 - 2.6 mg/dL 10/10/2018 12:59 AM [facility] Blood BLOOD SPECIMEN / Unknown Venipuncture / Unknown 10/10/2018 12:03 AM CDT 10/10/2018 12:37 AM CDT Juancho Rhodes MD LAB - CHEMISTRY MIGUEL GOLD Performing Organization Address [facility]/ZIP Co de Phone Number [address] [phone] * (ABNORMAL) BASIC METABOLIC PANEL (CALCIUM TOTAL) (10/10/2018 12:03 AM CDT) BUN 6(L) 7 - 26 mg/dL 10/10/2018 1:00 AM [facility] Creatinine 0.4(L) 0.6 - 1.2 mg/dL 10/10/2018 1:00 AM [facility] Sodium 136 136 - 145 mmol/L 10/10/2018 1:00 AM [facility] Potassium 3.5 3.5 - 4.5 mmol/L 10/10/2018 1:00 AM [facility] Chloride 107 98 - 107 mmol/L 10/10/2018 1:00 AM [facility] CO2 22 22 - 29 mmol/L 10/10/2018 1:00 AM [facility] Glucose 128(H) 70 - 115 mg/dL 10/10/2018 1:00 AM [facility] Calcium 7.4(L) 8.4 - 10.2 mg/dL 10/10/2018 1:00 AM [facility] Anion Gap 11 8 - 18 10/10/2018 1:00 AM [facility] BUN/Creatinine Ratio 15 7 - 23 10/10/2018 1:00 AM [facility] Osmolality Calculated 281 270 - 300 mOsm/kg 10/10/2018 1:00 AM [facility] eGFR >60 >60 mL/min/1.7 3 m2 10/10/2018 1:00 AM [facility] Blood BLOOD SPECIMEN / Unknown Venipuncture / Unknown 10/10/2018 12:03 AM CDT 10/10/2018 12:37 AM CDT Juancho Rhodes MD LAB - CHEMISTRY MIGUEL GOLD [facility] Organization Address City/State/[facility] Co de Phone Number [address] [phone] * (ABNORMAL) CBC W AUTO DIFFERENTIAL (10/10/2018 12:03 AM CDT) WBC 5.3 3.5 - 10.5 10? 3 /uL 10/10/2018 1:11 AM [facility] RBC 3.18(L) 4.30 - 5.70 10? 6 /uL 10/10/2018 1:11 AM [facility] Hemoglobin 8.9(L) 13.5 - 17.5 g/dL 10/10/2018 1:11 AM [facility] Hematocrit 28.1(L) 39.0 - 50.0 % 10/10/2018 1:11 AM [facility] MCV 88.4 81.0 - 97.0 fL 10/10/2018 1:11 AM [facility] MCH 28.0 28.0 - 34.0 pg 10/10/2018 1:11 AM [facility] MCHC 31.7(L) 32.0 - 36.0 g/dL 10/10/2018 1:11 AM [facility] Platelet Count 129(L) 150 - 400 10? 3 /uL 10/10/2018 1:11 AM CDT [facility] RDW-SD 72.7(H) 36.0 - 50.0 fL 10/10/2018 1:11 AM CDT [facility] RDW-CV 22.5(H) 11.2 - 14.8 % 10/10/2018 1:11 AM CDT [facility] MPV 11.1 9.3 - 12.8 fL 10/10/2018 1:11 AM CDT [facility] nRBC Absolute 0.00 0 10? 3 /uL 10/10/2018 1:11 AM CDT [facility] nRBC Auto 0.0 0 /100 WBC 10/10/2018 1:11 AM CDT [facility] Blood BLOOD SPECIMEN / Unknown Venipuncture / Unknown 10/10/2018 12:03 AM CDT 10/10/2018 12:32 AM CDT Juancho Rhodes MD LAB - HEMATOLOGY ORD ERABLES [address] [phone] * XR CHEST 1VW PORTABLE (10/09/2018 4:27 [...] 10? 3 /uL 10/09/2018 12:58 AM T [facility] Total Cell Count 100 10/10/19 19 12:58 AM [facility] Neutrophils Absolute Manual 3.85 1.60 - 7.00 10? 3 /uL 10/09/2018 12:58 AM [facility] Comment:(BANDS+SEGS) x WBC = NEUT # (ANC) Lymphocyte Absolute Manual 0.66(L) 0.80 - 2.90 10? 3 /uL 10/09/2018 12:58 AM CDT [facility] Monocytes Absolute Manual 0.77(H) 0.14 - 0.66 10? 3 /uL 10/09/2018 12:58 AM [facility] Eosinophils Absolute Manual 0.11 0.00 - 0.22 10? 3 /uL 10/09/2018 12:58 AM [facility] Basophil Absolute Manual 0.11(H) 0.00 - 0.06 10? 3 /uL 10/09/2018 12:58 AM [facility] Band % Manual 2 0 - 10 % 10/09/2018 12:58 AM [facility] Neutrophil % Manual 68(H) 30 - 60 % 10/09/2018 12:58 AM [facility] Lymphocyte % Manual 12(L) 20 - 45 % 10/09/2018 12:58 AM [facility] Monocytes % Manual 14(H) 2 - 10 % 10/09/2018 12:58 AM [facility] Eosinophils % Manual 2 1 - 6 % 10/09/2018 12:58 AM [facility] Basophils % Manual 2 0 - 3 % 10/09/2018 12:58 AM [facility] Platelet Estimate Adequate Adequate 10/09/2018 12:58 AM [facility] Anisocytosis 1+(A) None 10/09/2018 12:58 AM [facility] Hypochromia 1+(A) None 10/09/2018 12:58 AM [facility] Ovalocytes Few(A) None 10/09/2018 12:58 AM [facility] Blood BLOOD SPECIMEN / Unknown Venipuncture / Unknown 10/09/2018 12:00 AM CDT 10/09/2018 12:12 AM CDT Juancho Rhodes MD LAB - HEMATOLOGY ORD ERABLES [place] [id number] [phone] * (ABNORMAL) PHOSPHORUS BLOOD (10/09/2018 12:00 AM CDT) Phosphorus 2.1(L) 2.3 - 4.7 mg/dL 10/09/2018 12:32 AM [facility] Blood BLOOD SPECIMEN / Unknown Venipuncture / Unknown 10/09/2018 12:00 AM CDT 10/09/2018 12:12 AM CDT Juancho Rhodes MD LAB - CHEMISTRY MIGUEL GOLD Performing Organization Address [facility] Co de Phone Number [address] [phone] * (ABNORMAL) MAGNESIUM BLOOD (10/09/2018 12:00 AM CDT) Magnesium 1.1(L) 1.6 - 2.6 mg/dL 10/09/2018 12:32 AM T [facility] Blood BLOOD SPECIMEN / Unknown Venipuncture / Unknown 10/09/2018 12:00 AM CDT 10/09/2018 12:12 AM CDT Juancho Rhodes MD LAB - CHEMISTRY MIGUEL GOLD Performing Organization Address [facility]/ZIP Co de Phone Number [address] [phone] * (ABNORMAL) BASIC METABOLIC PANEL (CALCIUM TOTAL) (10/09/2018 12:00 AM CDT) BUN 6(L) 7 - 26 mg/dL 10/09/2018 12:32 AM [facility] Creatinine 0.4(L) 0.6 - 1.2 mg/dL 10/09/2018 12:32 AM [facility] Sodium 136 136 - 145 mmol/L 10/09/2018 12:32 AM [facility] Potassium 3.0(L) 3.5 - 4.5 mmol/L 10/09/2018 12:32 AM [facility] Chloride 110(H) 98 - 107 mmol/L 10/09/2018 12:32 AM [facility] CO2 20(L) 22 - 29 mmol/L 10/09/2018 12:32 AM [facility] Glucose 120(H) 70 - 115 mg/dL 10/09/2018 12:32 AM [facility] Calcium 6.9(L) 8.4 - 10.2 mg/dL 10/09/2018 12:32 AM [facility] Anion Gap 9 8 - 18 10/09/2018 12:32 AM [facility] BUN/Creatinine Ratio 15 7 - 23 10/09/2018 12:32 AM [facility] Osmolality Calculated 281 270 - 300 mOsm/kg 10/09/2018 12:32 AM [facility] eGFR >60 >60 mL/min/1.7 3 m2 10/09/2018 12:32 AM [facility] Blood BLOOD SPECIMEN / Unknown Venipuncture / Unknown 10/09/2018 12:00 AM CDT 10/09/2018 12:12 AM T Juancho Rhodes MD LAB - CHEMISTRY MIGUEL GOLD [facility] Organization Address City/State/[facility] Co de Phone Number [facility] [address] [place] [address] * (ABNORMAL) CBC W AUTO DIFFERENTIAL (10/09/2018 12:00 AM T) WBC 5.5 3.5 - 10.5 10? 3 /uL 10/09/2018 12:26 AM [facility] RBC 3.05(L) 4.30 - 5.70 10? 6 /uL 10/09/2018 12:26 AM [facility] Hemoglobin 8.4(L) 13.5 - 17.5 g/dL 10/09/2018 12:26 AM [facility] Hematocrit 26.8(L) 39.0 - 50.0 % 10/09/2018 12:26 AM [facility] MCV 87.9 81.0 - 97.0 fL 10/09/2018 12:26 AM [facility] MCH 27.5(L) 28.0 - 34.0 pg 10/09/2018 12:26 AM [facility] MCHC 31.3(L) 32.0 - 36.0 g/dL 10/09/2018 12:26 AM [facility] Platelet Count 102(L) 150 - 400 10? 3 /uL 10/09/2018 12:26 AM [facility] RDW-SD 73.2(H) 36.0 - 50.0 fL 10/09/2018 12:26 AM [facility] RDW-CV 22.8(H) 11.2 - 14.8 % 10/09/2018 12:26 AM [facility] MPV 10.2 9.3 - 12.8 fL 10/09/2018 12:26 AM [facility] nRBC Absolute 0.00 0 10? 3 /uL 10/09/2018 12:26 AM [facility] nRBC Auto 0.0 0 /100 WBC 10/09/2018 12:26 AM [facility] Blood BLOOD SPECIMEN / Unknown Venipuncture / Unknown 10/09/2018 12:00 AM T 10/09/2018 12:12 AM T Juancho Rhodes MD LAB - HEMATOLOGY ORD ERABLES Performing Organization Address City/State/[facility] Co de Phone Number [address] [phone] * (ABNORMAL) BLOOD GASES ARTERIAL (10/08/2018 9:26 AM [facility]) pH Arterial 7.48(H) 7.35 - 7.45 10/08/2018 9:58 AM [facility] pCO2 Arterial 34(L) 35 - 45 mmHg 10/08/2018 9:58 AM [facility] pO2 Arterial 106(H) 77 - 101 mmHg 10/08/2018 9:58 AM [facility] HCO3 Arterial 24.9 22.0 - 26.0 mmol/L 10/08/2018 9:58 AM [facility] TCO2 Arterial 26.0 25.0 - 29.0 mmol/L 10/08/2018 9:58 AM [facility] Base Excess Arterial 1.6 -2.0 - 2.0 mmol/L 10/08/2018 9:58 AM [facility] Hemoglobin Arterial 9.7(L) 13.5 - 17.5 g/dL 10/08/2018 9:58 AM [facility] Oxyhemoglobin Arterial 97.2 95.0 - 100.0 % 10/08/2018 9:58 AM CDT [facility] Carboxyhemoglobin 0.2 0.0 - 3.0 % 10/08/2018 9:58 AM CDT [facility] Methemoglobin 0.6 0.0 - 2.0 % 10/08/2018 9:58 AM CDT [facility] FI O2 Arterial 40.0 % 10/08/2018 9:58 AM CDT [facility] Blood, arterial ARTERIAL BLOOD SPECIMEN / Unknown Arterial Puncture / Unknown 10/08/2018 9:26 AM CDT 10/08/2018 9:55 AM CDT Henrietta Landers DO LAB - BLOOD GASES OR DERABLES Performing Organization Address City/State/[facility] Co de Phone Number [address] [phone] * XR CHEST 1VW PORTABLE (10/08/2018 5:50 [...] (A) Adequate 10/08/2018 12:57 AM CDT [facility] Anisocytosis 1+(A) None 10/08/2018 12:57 AM CDT [facility] Hypochromia 1+(A) None 10/08/2018 12:57 AM T [facility] Polychromasia Few(A) None 10/08/2018 12:57 AM [facility] Target Cells 1+(A) None 10/08/2018 12:57 AM T [facility] [place] Cells 1+(A) None 10/08/2018 12:57 AM [facility] Blood BLOOD SPECIMEN / Unknown Venipuncture / Unknown 10/08/2018 12:14 AM CDT 10/08/2018 12:32 AM CDT Juancho Rhodes MD LAB - HEMATOLOGY ORD ASHLEY Performing Organization Address [facility]/ZIP Co de Phone Number [address] [phone] * PHOSPHORUS BLOOD (10/08/2018 12:14 AM CDT) Phosphorus 2.8 2.3 - 4.7 mg/dL 10/08/2018 1:03 AM CDT [facility] Blood BLOOD SPECIMEN / Unknown Venipuncture / Unknown 10/08/2018 12:14 AM CDT 10/08/2018 12:32 AM CDT Juancho Rhodes MD LAB - CHEMISTRY MIGUEL GOLD Performing Organization Address [facility] Co de Phone Number [address] [phone] * MAGNESIUM BLOOD (10/08/2018 12:14 AM CDT) Magnesium 2.2 1.6 - 2.6 mg/dL 10/08/2018 1:03 AM CDT [facility] Blood BLOOD SPECIMEN / Unknown Venipuncture / Unknown 10/08/2018 12:14 AM CDT 10/08/2018 12:32 AM CDT Juancho Rhodes MD LAB - CHEMISTRY MIGUEL GOLD [address] [phone] * (ABNORMAL) BASIC METABOLIC PANEL (CALCIUM TOTAL) (10/08/2018 12:14 AM CDT) BUN 7 7 - 26 mg/dL 10/08/2018 1:03 AM CDT [facility] Creatinine 0.5(L) 0.6 - 1.2 mg/dL 10/08/2018 1:03 AM CDT [facility] Sodium 133(L) 136 - 145 mmol/L 10/08/2018 1:03 AM [facility] Potassium 4.4 3.5 - 4.5 mmol/L 10/08/2018 1:03 AM [facility] Chloride 102 98 - 107 mmol/L 10/08/2018 1:03 AM [facility] CO2 25 22 - 29 mmol/L 10/08/2018 1:03 AM [facility] Glucose 147(H) 70 - 115 mg/dL 10/08/2018 1:03 AM [facility] Calcium 8.0(L) 8.4 - 10.2 mg/dL 10/08/2018 1:03 AM [facility] Anion Gap 10 8 - 18 10/08/2018 1:03 AM [facility] BUN/Creatinine Ratio 14 7 - 10/08/2018 1:03 AM [facility] Osmolality Calculated 277 270 - 300 mOsm/kg 10/08/2018 1:03 AM [facility] eGFR >60 >60 mL/min/1.7 3 m2 10/08/2018 1:03 AM [facility] Blood BLOOD SPECIMEN / Unknown Venipuncture / Unknown 10/08/2018 12:14 AM CDT 10/08/2018 12:32 AM T Juancho Rhodes MD LAB - CHEMISTRY MIGUEL GOLD [facility] Organization Address City/State/[facility] Co de Phone Number [facility] [address] [place] [address] * (ABNORMAL) CBC W AUTO DIFFERENTIAL (10/08/2018 12:14 AM CDT) WBC 5.2 3.5 - 10.5 10? 3 /uL 10/08/2018 12:36 AM [facility] RBC 3.26(L) 4.30 - 5.70 10? 6 /uL 10/08/2018 12:36 AM [facility] Hemoglobin 9.0(L) 13.5 - 17.5 g/dL 10/08/2018 12:36 AM [facility] Hematocrit 28.3(L) 39.0 - 50.0 % 10/08/2018 12:36 AM [facility] MCV 86.8 81.0 - 97.0 fL 10/08/2018 12:36 AM [facility] MCH 27.6(L) 28.0 - 34.0 pg 10/08/2018 12:36 AM [facility] MCHC 31.8(L) 32.0 - 36.0 g/dL 10/08/2018 12:36 AM [facility] Platelet Count 101(L) 150 - 400 10? 3 /uL 10/08/2018 12:36 AM [facility] RDW-SD 70.2(H) 36.0 - 50.0 fL 10/08/2018 12:36 AM [facility] RDW-CV 22.5(H) 11.2 - 14.8 % 10/08/2018 12:36 AM [facility] MPV 10.4 9.3 - 12.8 fL 10/08/2018 12:36 AM [facility] nRBC Absolute 0.00 0 10? 3 /uL 10/08/2018 12:36 AM [facility] nRBC Auto 0.0 0 /100 WBC 10/08/2018 12:36 AM [facility] Neutrophils % 64.5 35.0 - 70.0 % 10/08/2018 12:36 AM [facility] Lymphocytes % 14.0(L) 19.7 - 55.1 % 10/08/2018 12:36 AM [facility] Monocytes % 18.4(H) 3.0 - 15.0 % 10/08/2018 12:36 AM [facility] Eosinophils % 1.9 0.0 - 6.0 % 10/08/2018 12:36 AM [facility] Basophil % 0.8 0.0 - 1.5 % 10/08/2018 12:36 AM [facility] Neutrophils Absolute 3.4 1.6 - 7.0 10? 3 /uL 10/08/2018 12:36 AM [facility] Lymphocyte Absolute 0.7(L) 0.8 - 2.9 10? 3 /uL 10/08/2018 12:36 AM [facility] Monocytes Absolute 0.96(H) 0.14 - 0.66 10? 3 /uL 10/08/2018 12:36 AM CDT [facility] Eosinophils Absolute 0.10 0.00 - 0.45 10? 3 /uL 10/08/2018 12:36 AM CDT [facility] Basophils Absolute 0.04 0.00 - 0.06 10? 3 /uL 10/08/2018 12:36 AM CDT [facility] Immature Granulocytes % 0.4 0.0 - 1.0 % 10/08/2018 12:36 AM CDT [facility] Blood BLOOD SPECIMEN / Unknown Venipuncture / Unknown 10/08/2018 12:14 AM CDT 10/08/2018 12:32 AM CDT Juancho Rhodes MD LAB - HEMATOLOGY ORD ERABLES Performing Organization Address City/[facility] Co de Phone Number [facility] [address] [phone] * TYPE + SCREEN PANEL (10/08/2018 12:14 AM CDT) Antibody Screen NEG 9 1:31 AM CDT [facility] B[facility] BANK LAB ABO Rh O POS 10/08/2018 1:31 AM CDT [facility] B[facility]ANK LAB Blood Bank BLOOD SPECIMEN / Unknown Venipuncture / Unknown 10/08/2018 12:14 AM CDT 10/08/2018 12:43 AM CDT Reilly Freeman MD LAB - BLOOD BANK ORD ERABLES [facility] LAB [address] [place] [address] * (ABNORMAL) CULTURE SPUTUM+GRAM STAIN (10/07/2018 11:30 [...] field Polymorphonuclear cells 10/09/2018 7:31 AM CDT [facility] MICROBIOLOGY Gram Stain Heavy Gram-positive cocci 10/09/2018 7:31 AM CDT [facility]CRO[facility] Microbiology SPUTUM / Unknown Collection [...] Landers DO LAB - MICROBIOLOGY O RDERABLES [facility] MICROBIOLOGY [address] [place] [phone] * XR CHEST 1VW PORTABLE (10/07/2018 9:26 AM CDT) Anatomical Region Laterality Modality Chest Radiographic Lynette ging 10/07/2018 11:4 4 AM CDT Impressions 10/07/2018 9:33 PM CDT IMPRESSION: Slight increase in right basilar atelectasis; otherwise no change from prior exam. Dictated by Harshil Lopez M.D. (residential sales). I, Dr. RAMOS NINO M.D. have personally [...] exam. Dictated by Harshil Lopez M.D. (residential sales). I, Dr. RAMOS NINO M.D. have personally reviewed and interpretedthis examination/study. This report was electronically signed by RAMOS NINO M.D. on 10/07/2018 9:33 PM . Henrietta Landers DO DIAGNOSTIC IMAGING O RDERABLES * (ABNORMAL) BLOOD GASES ARTERIAL (10/07/2018 9:00 AM CDT) pH Arterial 7.48(H) 7.35 - 7.45 10/07/2018 9:10 AM [facility] pCO2 Arterial 37 35 - 45 mmHg 10/07/2018 9:10 AM [facility] pO2 Arterial 118(H) 77 - 101 mmHg 10/07/2018 9:10 AM [facility] HCO3 Arterial 26.6(H) 22.0 - 26.0 mmol/L 10/07/2018 9:10 AM [facility] TCO2 Arterial 27.7 25.0 - 29.0 mmol/L 10/07/2018 9:10 AM [facility] Base Excess Arterial 3.0(H) -2.0 - 2.0 mmol/L 10/07/2018 9:10 AM [facility] Hemoglobin Arterial 8.8(L) 13.5 - 17.5 g/dL 10/07/2018 9:10 AM [facility] Oxyhemoglobin Arterial 97.5 95.0 - 100.0 % 10/07/2018 9:10 AM [facility] Carboxyhemoglobin 0.3 0.0 - 3.0 % 10/07/2018 9:10 AM [facility] Methemoglobin 0.6 0.0 - 2.0 % 10/07/2018 9:10 AM [facility] FI O2 Arterial 40.0 % 10/07/2018 9:10 AM [facility] Blood, arterial ARTERIAL BLOOD SPECIMEN / Unknown Arterial Puncture / Unknown 10/07/2018 9:00 AM CDT 10/07/2018 9:05 AM T Henrietta Landers DO LAB - BLOOD GASES OR DERABLES [address] [phone] * XR CHEST 1VW PORTABLE (10/07/2018 4:27 [...] stomach. Dictated by Harshil Lopez MD (residential sales). Dr. AN Londono M.D. have personally reviewed [...] stomach. Dictated by Harshil Lopez MD (residential sales). Dr. AN Londono M.D. have personally reviewed and interpreted this examination/study. This report was electronically signed by AN RICO M.D. on 10/07/2018 10:59 AM . Juancho Rhodes MD DIAGNOSTIC IMAGING O RDERABLES * (ABNORMAL) RBC MORPHOLOGY (10/07/2018 12:07 AM CDT) Platelet Estimate Decreased (A) Adequate 10/07/2018 1:38 AM CDT [facility] Anisocytosis 1+(A) None 10/07/2018 1:38 AM CDT [facility] Hypochromia Occasiona l(A) None 10/07/2018 1:38 AM CDT [facility] Polychromasia Occasiona l(A) None 10/07/2018 1:38 AM CDT [facility] Target Cells 1+(A) None 10/07/2018 1:38 AM CDT [facility] Blood BLOOD SPECIMEN / Unknown Venipuncture / Unknown 10/07/2018 12:07 AM CDT 10/07/2018 12:10 AM CDT Juancho Rhodes MD LAB - HEMATOLOGY ORD ERALUIS Performing Organization Address City/[facility]/ZIP Co de Phone Number [address] [phone] * PHOSPHORUS BLOOD (10/07/2018 12:07 AM CDT) Phosphorus 3.2 2.3 - 4.7 mg/dL 10/07/2018 12:39 AM CDT [facility] Blood BLOOD SPECIMEN / Unknown Venipuncture / Unknown 10/07/2018 12:07 AM CDT 10/07/2018 12:10 AM CDT Juancho Rhodes MD LAB - CHEMISTRY MIGUEL GOLD Performing Organization Address [facility]/ZIP Co de Phone Number [address] [phone] * MAGNESIUM BLOOD (10/07/2018 12:07 AM CDT) Magnesium 2.0 1.6 - 2.6 mg/dL 10/07/2018 12:39 AM CDT [facility] Blood BLOOD SPECIMEN / Unknown Venipuncture / Unknown 10/07/2018 12:07 AM CDT 10/07/2018 12:10 AM CDT Juancho Rhodes MD LAB - CHEMISTRY ORDSukhwinder GOLD Performing Organization Address [facility]/ZIP Co de Phone Number [address] [phone] * (ABNORMAL) BASIC METABOLIC PANEL (CALCIUM TOTAL) (10/07/2018 12:07 AM CDT) BUN 8 7 - 26 mg/dL 10/07/2018 12:39 AM CDT [facility] Creatinine 0.5(L) 0.6 - 1.2 mg/dL 10/07/2018 12:39 AM CDT [facility] Sodium 131(L) 136 - 145 mmol/L 10/07/2018 12:39 AM CDT [facility] Potassium 3.7 3.5 - 4.5 mmol/L 10/07/2018 12:39 AM [facility] Chloride 96(L) 98 - 107 mmol/L 10/07/2018 12:39 AM [facility] CO2 26 22 - 29 mmol/L 10/07/2018 12:39 AM [facility] Glucose 101 70 - 115 mg/dL 10/07/2018 12:39 AM [facility] Calcium 8.5 8.4 - 10.2 mg/dL 10/07/2018 12:39 AM [facility] Anion Gap 13 8 - 18 10/07/2018 12:39 AM [facility] BUN/Creatinine Ratio 16 7 - 23 10/07/2018 12:39 AM [facility] Osmolality Calculated 270 270 - 300 mOsm/kg 10/07/2018 12:39 AM [facility] eGFR >60 >60 mL/min/1.7 3 m2 10/07/2018 12:39 AM [facility] Blood BLOOD SPECIMEN / Unknown Venipuncture / Unknown 10/07/2018 12:07 AM T 10/07/2018 12:10 AM T Juancho Rhodes MD LAB - CHEMISTRY [facility]EL [facility] Organization Address City/State/ZIP Co de Phone Number [address] [phone] * (ABNORMAL) CBC W AUTO DIFFERENTIAL (10/07/2018 12:07 AM [facility] [place] WBC 6.7 3.5 - 10.5 10? 3 /uL 10/07/2018 12:22 AM [facility] RBC 3.39(L) 4.30 - 5.70 10? 6 /uL 10/07/2018 12:22 AM [facility] Hemoglobin 9.3(L) 13.5 - 17.5 g/dL 10/07/2018 12:22 AM [facility] Hematocrit 29.4(L) 39.0 - 50.0 % 10/07/2018 12:22 AM [facility] MCV 86.7 81.0 - 97.0 fL 10/07/2018 12:22 AM [facility] MCH 27.4(L) 28.0 - 34.0 pg 10/07/2018 12:22 AM [facility] MCHC 31.6(L) 32.0 - 36.0 g/dL 10/07/2018 12:22 AM [facility] Platelet Count 85(L) 150 - 400 10? 3 /uL 10/07/2018 12:22 AM [facility] RDW-SD 67.8(H) 36.0 - 50.0 fL 10/07/2018 12:22 AM [facility] RDW-CV 22.2(H) 11.2 - 14.8 % 10/07/2018 12:22 AM [facility] MPV 10.3 9.3 - 12.8 fL 10/07/2018 12:22 AM [facility] nRBC Absolute 0.00 0 10? 3 /uL 10/07/2018 12:22 AM [facility] nRBC Auto 0.0 0 /100 WBC 10/07/2018 12:22 AM [facility] Neutrophils % 70.2(H) 35.0 - 70.0 % 10/07/2018 12:22 AM [facility] Lymphocytes % 13.5(L) 19.7 - 55.1 % 10/07/2018 12:22 AM [facility] Monocytes % 13.7 3.0 - 15.0 % 10/07/2018 12:22 AM [facility] Eosinophils % 1.7 0.0 - 6.0 % 10/07/2018 12:22 AM [facility] Basophil % 0.6 0.0 - 1.5 % 10/07/2018 12:22 AM [facility] Neutrophils Absolute 4.7 1.6 - 7.0 10? 3 /uL 10/07/2018 12:22 AM [facility] Lymphocyte Absolute 0.9 0.8 - 2.9 10? 3 /uL 10/07/2018 12:22 AM [facility] Monocytes Absolute 0.91(H) 0.14 - 0.66 10? 3 /uL 10/07/2018 12:22 AM [facility] Eosinophils Absolute 0.11 0.00 - 0.45 10? 3 /uL 10/07/2018 12:22 AM CDT [facility] Basophils Absolute 0.04 0.00 - 0.06 10? 3 /uL 10/07/2018 12:22 AM CDT [facility] Immature Granulocytes % 0.3 0.0 - 1.0 % 10/07/2018 12:22 AM CDT [facility] Blood BLOOD SPECIMEN / Unknown Venipuncture / Unknown 10/07/2018 12:07 AM CDT 10/07/2018 12:10 AM CDT Juancho Rhodes MD LAB - HEMATOLOGY ORD ERABLES [facility] [address] [place] [address] * XR CHEST 1VW PORTABLE (10/06/2018 11:50 [...] Report dictated by Efren Bauman MD (residential sales). Dr. JONAS Londono have personally reviewed and [...] Report dictated by Efren Bauman MD (residential sales). Dr. JONAS Londono have personally reviewed and [...] Report dictated by Efren Bauman M.D. (residential sales). Dr. JONAS Londono have personally reviewed and [...] Report dictated by Efren Bauman M.D. (residential sales). I, Dr. JONAS DONATO have personally reviewed and interpreted this examination/study. This report was electronically signed by JONAS DONATO on 10/06/2018 2:44 PM . Juancho Rhodes MD DIAGNOSTIC IMAGING O RDERABLES * (ABNORMAL) BLOOD GASES ARTERIAL (10/06/2018 9:18 AM [facility] [place] pH Arterial 7.36 7.35 - 7.45 10/06/2018 9:23 AM [facility] pCO2 Arterial 45 35 - 45 mmHg 10/06/2018 9:23 AM [facility] pO2 Arterial 143(H) 77 - 101 mmHg 10/06/2018 9:23 AM [facility] HCO3 Arterial 24.9 22.0 - 26.0 mmol/L 10/06/2018 9:23 AM [facility] TCO2 Arterial 26.3 25.0 - 29.0 mmol/L 10/06/2018 9:23 AM [facility] Base Excess Arterial -0.6 -2.0 - 2.0 mmol/L 10/06/2018 9:23 AM [facility] Hemoglobin Arterial 8.9(L) 13.5 - 17.5 g/dL 10/06/2018 9:23 AM [facility] Oxyhemoglobin Arterial 97.8 95.0 - 100.0 % 10/06/2018 9:23 AM [facility] Carboxyhemoglobin 0.2 0.0 - 3.0 % 10/06/2018 9:23 AM [facility] Methemoglobin 0.4 0.0 - 2.0 % 10/06/2018 9:23 AM [facility] FI O2 Arterial 40.0 % 10/06/2018 9:23 AM [facility] Blood, arterial ARTERIAL BLOOD SPECIMEN / Unknown Arterial Puncture / Unknown 10/06/2018 9:18 AM CDT 10/06/2018 9:20 AM CDT Juancho Rhodes MD LAB - BLOOD GASES OR DERABLES [address] [phone] * (ABNORMAL) RBC MORPHOLOGY (10/06/2018 12:11 AM CDT) Pathologist [facility] Platelet Estimate Decreased (A) Adequate 10/06/2018 1:04 AM CDT [facility] Anisocytosis 1+(A) None 10/06/2018 1:04 AM CDT [facility] Hypochromia 1+(A) None 10/06/2018 1:04 AM CDT [facility] Polychromasia 1+(A) None 10/06/2018 1:04 AM CDT [facility] Target Cells 1+(A) None 10/06/2018 1:04 AM CDT [facility] Tear Drop Cells Few(A) None 9 1:04 AM T [facility] Blood BLOOD SPECIMEN / Unknown Venipuncture / Unknown 10/06/2018 12:11 AM CDT 10/06/2018 12:13 AM CDT Juancho Rhodes MD LAB - HEMATOLOGY ORD ERABLES Performing Organization Address [facility]/ZIP Co de Phone Number [address] [phone] * (ABNORMAL) CBC W AUTO DIFFERENTIAL (10/06/2018 12:11 AM CDT) WBC 7.4 3.5 - 10.5 10? 3 /uL 10/06/2018 12:21 AM CDT [facility] RBC 3.48(L) 4.30 - 5.70 10? 6 /uL 10/06/2018 12:21 AM CDT [facility] Hemoglobin 9.4(L) 13.5 - 17.5 g/dL 10/06/2018 12:21 AM CDT [facility] Hematocrit 29.8(L) 39.0 - 50.0 % 10/06/2018 12:21 AM T [facility] MCV 85.6 81.0 - 97.0 fL 10/06/2018 12:21 AM [facility] MCH 27.0(L) 28.0 - 34.0 pg 10/06/2018 12:21 AM [facility] MCHC 31.5(L) 32.0 - 36.0 g/dL 10/06/2018 12:21 AM [facility] Platelet Count 69(L) 150 - 400 10? 3 /uL 10/06/2018 12:21 AM [facility] RDW-SD 65.0(H) 36.0 - 50.0 fL 10/06/2018 12:21 AM [facility] RDW-CV 21.3(H) 11.2 - 14.8 % 10/06/2018 12:21 AM [facility] MPV 9.9 9.3 - 12.8 fL 10/06/2018 12:21 AM [facility] nRBC Absolute 0.00 0 10? 3 /uL 10/06/2018 12:21 AM [facility] nRBC Auto 0.0 0 /100 WBC 10/06/2018 12:21 AM [facility] Neutrophils % 72.1(H) 35.0 - 70.0 % 10/06/2018 12:21 AM [facility] Lymphocytes % 11.2(L) 19.7 - 55.1 % 10/06/2018 12:21 AM [facility] Monocytes % 14.6 3.0 - 15.0 % 10/06/2018 12:21 AM [facility] Eosinophils % 1.2 0.0 - 6.0 % 10/06/2018 12:21 AM [facility] Basophil % 0.4 0.0 - 1.5 % 10/06/2018 12:21 AM [facility] Neutrophils Absolute 5.3 1.6 - 7.0 10? 3 /uL 10/06/2018 12:21 AM [facility] Lymphocyte Absolute 0.8 0.8 - 2.9 10? 3 /uL 10/06/2018 12:21 AM [facility] Monocytes Absolute 1.08(H) 0.14 - 0.66 10? 3 /uL 10/06/2018 12:21 AM [facility] Eosinophils Absolute 0.09 0.00 - 0.45 10? 3 /uL 10/06/2018 12:21 AM CDT [facility] Basophils Absolute 0.03 0.00 - 0.06 10? 3 /uL 10/06/2018 12:21 AM CDT [facility] Immature Granulocytes % 0.5 0.0 - 1.0 % 10/06/2018 12:21 AM CDT [facility] Blood BLOOD SPECIMEN / Unknown Venipuncture / Unknown 10/06/2018 12:11 AM CDT 10/06/2018 12:13 AM CDT Juancho Rhodes MD LAB - HEMATOLOGY ORD ERABLES [address] [phone] * PHOSPHORUS BLOOD (10/05/2018 11:53 PM CDT) Phosphorus 3.2 2.3 - 4.7 mg/dL 10/06/2018 12:32 AM CDT [facility] Blood BLOOD SPECIMEN / Unknown Venipuncture / Unknown 10/05/2018 11:53 PM CDT 10/05/2018 11:56 PM CDT Juancho Rhodes MD LAB - CHEMISTRY ORDSukhwinder GOLD Performing Organization Address City/[facility]/ZIP Co de Phone Number [address] [phone] * MAGNESIUM BLOOD (10/05/2018 11:53 PM CDT) Magnesium 1.8 1.6 - 2.6 mg/dL 10/06/2018 12:32 AM CDT [facility] Blood BLOOD SPECIMEN / Unknown Venipuncture / Unknown 10/05/2018 11:53 PM CDT 10/05/2018 11:56 PM CDT Juancho Rhodes MD LAB - CHEMISTRY ORDSukhwinder GOLD [place] [id number], [place] [phone] * (ABNORMAL) BASIC METABOLIC PANEL (CALCIUM TOTAL) (10/05/2018 11:53 PM CDT) [facility] BUN 6(L) 7 - 26 mg/dL 10/06/2018 12:32 AM [facility] Creatinine 0.5(L) 0.6 - 1.2 mg/dL 10/06/2018 12:32 AM [facility] Sodium 130(L) 136 - 145 mmol/L 10/06/2018 12:32 AM [facility] Potassium 3.8 3.5 - 4.5 mmol/L 10/06/2018 12:32 AM [facility] Chloride 95(L) 98 - 107 mmol/L 10/06/2018 12:32 AM [facility] CO2 24 22 - 29 mmol/L 10/06/2018 12:32 AM [facility] Glucose 101 70 - 115 mg/dL 10/06/2018 12:32 AM [facility] Calcium 9.0 8.4 - 10.2 mg/dL 10/06/2018 12:32 AM [facility] Anion Gap 15 8 - 18 10/06/2018 12:32 AM [facility] BUN/Creatinine Ratio 12 7 - 23 10/06/2018 12:32 AM [facility] Osmolality Calculated 268(L) 270 - 300 mOsm/kg 10/06/2018 12:32 AM [facility] eGFR >60 >60 mL/min/1.7 3 m2 10/06/2018 12:32 AM [facility] Blood BLOOD SPECIMEN / Unknown Venipuncture / Unknown 10/05/2018 11:53 PM CDT 10/05/2018 11:56 PM CDT Juancho Rhodes MD LAB - CHEMISTRY [facility]IG[facility]EL [facility] Organization Address City/State/ZIP Co de Phone Number [place] [id number] [address] [phone] * PHOSPHORUS BLOOD (10/05/2018 2:16 AM CDT) [facility] Phosphorus 3.0 2.3 - 4.7 mg/dL 10/05/2018 2:43 AM CDT [facility] Blood BLOOD SPECIMEN / Unknown Lab Venipuncture / Unknown 10/05/2018 2:16 AM CDT 10/05/2018 2:21 AM CDT Emmanuelle Rocio Bryan [facility] LAB - CHEMISTRY ORDERABLES Performing Organization Address [facility]/ZIP Co de Phone Number [address] [phone] * (ABNORMAL) MAGNESIUM BLOOD (10/05/2018 2:16 AM CDT) Magnesium 1.4(L) 1.6 - 2.6 mg/dL 10/05/2018 2:43 AM T [facility] Blood BLOOD SPECIMEN / Unknown Lab Venipuncture / Unknown 10/05/2018 2:16 AM CDT 10/05/2018 2:21 AM CDT Emmanuelle Adams [facility] LAB - CHEMISTRY ORDERABLES Performing Organization Address [facility] Co de Phone Number [address] [phone] * (ABNORMAL) BASIC METABOLIC PANEL (CALCIUM TOTAL) (10/05/2018 2:16 AM CDT) BUN 5(L) 7 - 26 mg/dL 10/05/2018 2:43 AM [facility] Creatinine 0.6 0.6 - 1.2 mg/dL 10/05/2018 2:43 AM [facility] Sodium 134(L) 136 - 145 mmol/L 10/05/2018 2:43 AM [facility] Potassium 4.0 3.5 - 4.5 mmol/L 10/05/2018 2:43 AM [facility] Chloride 100 98 - 107 mmol/L 10/05/2018 2:43 AM [facility] CO2 25 22 - 29 mmol/L 10/05/2018 2:43 AM [facility] Glucose 100 70 - 115 mg/dL 10/05/2018 2:43 AM [facility] Calcium 8.9 8.4 - 10.2 mg/dL 10/05/2018 2:43 AM [facility] Anion Gap 13 8 - 18 10/05/2018 2:43 AM [facility] BUN/Creatinine Ratio 8 7 - 23 10/05/2018 2:43 AM [facility] Osmolality Calculated 275 270 - 300 mOsm/kg 10/05/2018 2:43 AM [facility] eGFR >60 >60 mL/min/1.7 3 m2 10/05/2018 2:43 AM [facility] Blood BLOOD SPECIMEN / Unknown Lab Venipuncture / Unknown 10/05/2018 2:16 AM CDT 10/05/2018 2:21 AM CDT Emmanuelle Adams APRN-GROUNDSMAN LAB - CHEMISTRY ORDERABLES Performing Organization Address City/State/[facility] Co de Phone Number [facility] [address] [place] [address] * (ABNORMAL) CBC W/O DIFFERENTIAL (10/05/2018 2:16 AM CDT) WBC 5.6 3.5 - 10.5 10? 3 /uL 10/05/2018 2:30 AM [facility] RBC 3.38(L) 4.30 - 5.70 10? 6 /uL 10/05/2018 2:30 AM [facility] Hemoglobin 9.1(L) 13.5 - 17.5 g/dL 10/05/2018 2:30 AM [facility] Hematocrit 28.9(L) 39.0 - 50.0 % 10/05/2018 2:30 AM [facility] MCV 85.5 81.0 - 97.0 fL 10/05/2018 2:30 AM [facility] MCH 26.9(L) 28.0 - 34.0 pg 10/05/2018 2:30 AM [facility] MCHC 31.5(L) 32.0 - 36.0 g/dL 10/05/2018 2:30 AM [facility] Platelet Count 55(L) 150 - 400 10? 3 /uL 10/05/2018 2:30 AM CDT [facility] RDW-SD 66.4(H) 36.0 - 50.0 fL 10/05/2018 2:30 AM CDT [facility] RDW-CV 21.4(H) 11.2 - 14.8 % 10/05/2018 2:30 AM CDT [facility] MPV 9.8 9.3 - 12.8 fL 10/05/2018 2:30 AM CDT [facility] nRBC Absolute 0.00 0 10? 3 /uL 10/05/2018 2:30 AM CDT [facility] nRBC Auto 0.0 0 /100 WBC 10/05/2018 2:30 AM CDT [facility] Blood BLOOD SPECIMEN / Unknown Lab Venipuncture / Unknown 10/05/2018 2:16 AM CDT 10/05/2018 2:21 AM CDT Emmanuelle Adams APRN-GROUNDSMAN LAB - HEMATOLOGY ORDERABLES Performing Organization Address City/State/[facility] Co de Phone Number [address] [phone] * (ABNORMAL) RBC MORPHOLOGY (10/04/2018 9:27 AM CDT) Platelet Estimate Decreased (A) Adequate 10/04/2018 10:57 AM CDT [facility] Anisocytosis 1+(A) None 10/04/2018 10:57 AM CDT [facility] Hypochromia 2+(A) None 10/04/2018 10:57 AM CDT [facility] Polychromasia 1+(A) None 10/04/2018 10:57 AM CDT [facility] Target Cells 1+(A) None 10/04/2018 10:57 AM CDT [facility] Schistocytes Rare(A) None 10/04/2018 10:57 AM CDT [facility] Ovalocytes Rare(A) None 10/04/2018 10:57 AM CDT [facility] Blood BLOOD SPECIMEN / Unknown Lab Venipuncture / Unknown 10/04/2018 9:27 AM CDT 10/04/2018 9:48 AM CDT Emmanuelle Chan Bryan BODY MECHANIC APPRENTICE-GROUNDSMAN LAB - HEMATOLOGY ORDERABLES Performing Organization Address City/State/[facility] Co de Phone Number [address] [phone] * (ABNORMAL) CBC W AUTO DIFFERENTIAL (10/04/2018 9:27 AM CDT) WBC 5.6 3.5 - 10.5 10? 3 /uL 10/04/2018 10:20 AM [facility] RBC 3.42(L) 4.30 - 5.70 10? 6 /uL 10/04/2018 10:20 AM [facility] Hemoglobin 9.3(L) 13.5 - 17.5 g/dL 10/04/2018 10:20 AM [facility] Hematocrit 29.2(L) 39.0 - 50.0 % 10/04/2018 10:20 AM [facility] MCV 85.4 81.0 - 97.0 fL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
--- OUTSIDE RECORDS SUMMARY | 2024-06-27 10:31 | XMS_ITS | Clinical Summary ---
Author Organization [facility] Address [address] [place] [address] Care Team Providers Care Nuclear Operator Name Role Phone Michelle Delcid MD Primary Care Provider [phone] Allergies No known active allergies Medications multivitamin [...] 06/20/2021 Assessment & Plan (06/20/2021 1:57 PM SLP TEACHER): Continue tamsulosin BMI 26.0-26.9,adult 06/09/2021 Bilateral carpal [...] 06/08/2020 Assessment & Plan (06/09/2021 8:05 AM SLP TEACHER): Stable on pramipexole Assessment & Plan (12/01/2020 12:59 PM CDT): Stable on pramipexole Assessment & Plan (11/09/2020 2:26 PM CDT): Not controlled with gapapentine alone. On it for polyneuropathy and it worked for RLS also. Will try additional treatment. If not better in 2 weeks, call back to increase dose. Assessment & Plan (06/08/2020 1:21 PM SLP TEACHER): Chronic for years. Previously responded well to night dose of gabapentin. Will restart that again. Drug-induced polyneuropathy 06/08/2020 Assessment & Plan (06/09/2021 8:05 AM SLP TEACHER): Stable on gabapentin Assessment & Plan (12/01/2020 12:59 PM CDT): Stable on gabapentin Assessment & Plan (06/08/2020 1:22 PM SLP TEACHER): Chronic for years. Previously responded well to night dose of gabapentin. Will restart that again. Chronic right shoulder pain 05/27/2020 Assessment & Plan (05/27/2020 2:29 PM SLP TEACHER): Will start with checking an x-ray of [...] needed. Assessment & Plan (06/09/2021 8:04 AM SLP TEACHER): Status post banding. Followed by Dr. Nagy Assessment & Plan (12/01/2020 12:59 PM CDT): Status post banding. Assessment & Plan (05/27/2020 2:05 PM SLP TEACHER): Status post banding. Due for repeat EGD by Dr. Duoglas. History of hepatitis C virus infection 0 Assessment & Plan (12/01/2020 12:58 PM CDT): Currently undetectable Assessment & Plan (05/25/2020 1:34 PM SLP TEACHER): Currently undetectable Hepatic encephalopathy 04/08/2020 Assessment & Plan (03/15/2023 6:49 PM CDT): Good control on current medical management. No changes indicated. Assessment & Plan (03/02/2022 8:09 PM CDT): No evidence of recurrence. Currently not on medical management. Assessment & Plan (06/20/2021 2:05 PM SLP TEACHER): Stable on Xifaxan Assessment & Plan (12/01/2020 12:59 PM CDT): Stable on Xifaxan and lactulose Assessment & Plan (05/25/2020 1:32 PM SLP TEACHER): Stable on Xifaxan and lactulose Assessment & [...] Denies SI/HI. Previously followed with Psychiatrist in [facility] but does not remember the name. -at this time, I do not feel comfortable giving him medication for anxiety due to the uncertainty of psych diagnosis -will order one time psych visit to clarify and then connect him to [facility] [place] [facility] -will task the SW [...] follow. Assessment & Plan (06/09/2021 8:02 AM SLP TEACHER): Stable. Follows with Dr. Nagy. Continue Abhishek Assessment & Plan (12/02/2020 2:58 PM CDT): Stable. No evidence of ascites. Currently being followed by Dr. Nagy. Continue Xifaxan Assessment & Plan (05/25/2020 1:30 PM SLP TEACHER): Stable. Currently being followed by Dr. Mahoney [...] 02/20/2019 Assessment & Plan (05/25/2020 1:34 PM SLP TEACHER): Stable on metoprolol and amlodipine Schizoaffective disorder, [...] decompensation. Assessment & Plan (06/09/2021 8:03 AM SLP TEACHER): Currently remains sober. Has not drank since December of 2019 Assessment & Plan (12/01/2020 1:02 PM CDT): Currently staying sober. Has not drank since December of 2019. Assessment & Plan (06/24/2019 3:14 PM SLP TEACHER): Patient presents acutely intoxicated wanting to go to rehab. Already accepted to the [facility] ([phone]) but cannot do acute medical detox which patient will likely need with large alcohol consumption history and past history of DT. -send to ER for admission for medical detox from [facility] -on discharge send patient [facility] program ([phone]) Resolved Problems Problem Noted Date Diagnosed Date [...] high risk): negative--not immunized - HCV ( [id number]): s/p treatment with RNA NR 02/2019 - [...] NPO at [facility] for possible EGD Hematochezia 02/21/2019 12/01/2020 Assessment [...] Department Care Team Description 06/04/2024 11:30 AM SLP TEACHER - 06/04/2024 12:00 PM SLP TEACHER Surgery [facility] [address] [place] [id number] Melody Lilly MD ESOPHAGOGASTRODUODENOSCOPY 06/04/2024 10:34 AM SLP TEACHER Anesthesia Event [facility] [address] [address] German Caballero MD 06/04/2024 10:05 AM SLP TEACHER - 06/04/2024 11:20 AM SLP TEACHER Hospital Encounter [facility] [address] [address] Melody Lilly MD Discharge Disposition: Discharge to home or self care 05/30/[address] [facility] Specialty Services [address] [place] [phone] Guillermina Jade, REJI GI Preprocedure 05/28/[address] [facility] Specialty Services [address] [place] [phone] Guillermina Jade RN GI Preprocedure 04/30/2024 Telephone [facility] Gastroenterolog y [address] [facility] [address], [address] [place] [address] Melody Lilly MD from Last [...] Comments Blood Pressure 123/67 06/04/2024 11:07 AM SLP TEACHER Pulse 70 06/04/2024 11:07 AM SLP TEACHER Temperature 36.4 ??C (97.5 ??F) 06/04/2024 10:[address] Respiratory Rate 25 06/04/2024 11:07 AM SLP TEACHER Oxygen Saturation 95% 06/04/2024 11:07 AM SLP TEACHER Inhaled Oxygen Concentration - - Weight 93.9 kg (207 lb) 06/04/2024 10:19 AM SLP TEACHER Height 182.9 cm (6') 06/04/2024 10:19 AM SLP TEACHER Body Mass Index 28.07 06/04/2024 10:19 AM SLP TEACHER Plan of Treatment Health Maintenance Due Date [...] Associated Diagnosis Comments EGD 06/04/2024 10:37 AM SLP TEACHER ESOPHAGOGASTRODUODENOSCOPY 06/04 10:35 AM SLP TEACHER Esophageal varices without bleeding, unspecified esophageal varices type (HCC) HEPATITIS PANEL, ACUTE Routine 0 5:41 AM CDT from Last 3 Months or Most Recently Relevant to Health Maintenance Results * EGD (06/04/2024 10:37 AM SLP TEACHER) Anatomical Region Laterality Modality Other Narrative Procedure Note Melody Lilly MD - 06/04/2024 10:37 AM [facility] Patient Name: Chester Dubose Procedure Date: 06/04/2024 10:37AM Date of : 1970 Admit Type: Outpatient Age: 53 Gender: Male Attending MD: Melody Lilly M.D. Room: [facility] ENDOSCOPY ROOM 9 Note Status: Finalized Procedure: [...] following this procedure please call my office [phone]). After hours and eveningsplease call [phone] and speak to the GI fellow oncall [...] (12/10/2019 5:41 AM CDT) HepBsAg NONREACT NONREACTIVE [facility] Comment: Siemens CentaurXP using CHRISTOPHER (chemiluminescent immunoassay) technology. NONREACTIVE: IgM antibodies to Hepatitis B Surface antigen not detected. REACTIVE: IgM antibodies to Hepatitis B Surface antigen detected. Reactive results will be confirmed by neutralization testing. HBsAb qn 10.95 mIU/mL [facility] Comment: Siemens CentaurXP using CHRISTOPHER (chemiluminescent immunoassay) technology. 9.99 IU/L or less.....NONREACTIVE: IgM antibodies to Hepatitis B Surface antibody are not detected. 10.00 IU/L or greater..REACTIVE: IgM antibodies to Hepatitis B Surface antibody are detected. Hep B core IgM NONREACT NONREACTIVE [facility] Comment: Siemens CentaurXP using CHRISTOPHER (chemiluminescent immunoassay) technology. NONREACTIVE: IgM antibodies to Hepatitis B Core antigen not detected. EQUIVOCAL: IgM antibodies to Hepatitis B Core antigen may or may not be present. Obtain a ??new specimen and retest. REACTIVE: IgM antibodies to Hepatitis B Core antigen detected. Hep A IgM NONREACT NONREACTIVE [facility] Comment: Siemens CentaurXP using CHRISTOPHER (chemiluminescent immunoassay) technology. NONREACTIVE: IgM antibodies to Hepatitis A not detected. This does not exclude possibility of exposure to Hepatitis A or early acute infection. EQUIVOCAL:IgM antibodies to Hepatitis A may or may not be present. Suggest recollection and retest. REACTIVE: Antibodies to Hepatitis A detected. Hep C Ab REACTIVE(A) NONREACTIVE [facility] Comment: Sample to be confirmed by HCV quantitative NAAT. Siemens ACAL EnergyaurXP using CHRISTOPHER (chemiluminescent immunoassay) technology. NONREACTIVE: Antibodies [...] LAB MICROBIOLOGY - NERAL ORDERABLES Final Result [facility] [address] [place], [place] [id number] [place] [address] from Last 3 Months or Most Recently Relevant to Health Maintenance Insurance [facility] MEDICARE IDMO MEDICARE IDPA [facility] MEDICARE Advance Directives For more information, please contact: [phone] Documents on File Type Date Recorded Patient Wedding Decorator Expl anation ADVANCE DIRECTIVE 12/31/2019 12:00 AM QUINCY R OF TEST ADMINISTRATOR FINANCIAL/MEDICAL * Full Code (Latest Code [...] 5:52 AM 02/25/2019 7:16 PM Care Teams Nuclear Operator Relationship Specialty Start Date End Date Michelle Delcid MD [address] [place], [place] [id number] PCP - General Family Medicine 04/27/22
--- OUTSIDE RECORDS SUMMARY | 2024-06-27 10:31 | XMS_ITS | Encounter Summary ---
Author Organization [facility] Health Address [address] [place] [address] Care Team Providers Care Compliance Engineer Products Name Role Phone Toni Ravi MD Primary Care Provider [phone] Jomar Noble MD Unavailable Encounter Details Date Type Department Care Team (Late st Contact Info) Description 10/02/2018 Ophth Exam [facility] [address] [place] [address] Jhon Saravia MD [address] [place] [phone] Social History Tobacco Use Types Packs/Day Years [...] Info) Description 08/25/2024 1:10 PM CDT Documentation [address] [phone] 08/25/2024 1:20 PM CDT Office Visit [address] [phone] Migue Reeder MD [address] [facility] [address] [place] [address] documented as of this encounter Visit Diagnoses Not on filedocumented in this encounter Additional Health Concerns Infection Onset Date Last Indicated Resolved Time 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 Care Teams Compliance Engineer Products Relationship Specialty Start Date End Date Toni Ravi MD [address] [place] [phone] PCP - General Internal Medicine 04/24/23 Jomar Noble MD [address] [address] Hospitalist Internal Medicine 04/24/23 documented as of this encounter
--- OUTSIDE RECORDS SUMMARY | 2024-06-27 10:31 | XMS_ITS | Encounter Summary ---
Author Organization [facility] Address [address] [place] [address] Care Team Providers Care Rvda Master Certified Rv Technician Name Role Phone Unavailable Primary Care Provider Unavailabl e Encounter Details Date Type Department Care Team (Late st Contact Info) Description 10/08/2018 11:59 PM CDT Anesthesia Event [facility] [address] [place] [address] Gustavo Martinez DO Anesthesia Record Procedure Summary [...] this encounter Consult Notes * Mora Grimaldo, RIBBON BLOCKMAKER-POWER PLANT OPERATOR APPRENTICE - 10/07/2018 1:17 PM CDT ANESTHESIA PREOPERATIVE [...] Info) Description 08/25/2024 1:10 PM CDT Documentation [address] [phone] 08/25/2024 1:20 PM CDT Office Visit [address] [phone] Migue Reeder MD [address] [place] [phone] documented as of this encounter Visit Diagnoses Not on filedocumented in this encounter
--- OUTSIDE RECORDS SUMMARY | 2024-06-27 10:31 | XMS_ITS | Encounter Summary ---
Author Organization [facility] Address [address] [place] [address] Care Team Providers Care Sales Commissions Analyst Name Role Phone Toni Ravi MD Primary Care Provider [phone] Jomar Noble MD Unavailable Encounter Details Date Type Department Care Team (Late st Contact Info) Description 10/07/2018 Ophth Exam [facility] [address] [place] [address] Christine Trinidad MD [facility] [place] [address] Social History Tobacco Use Types Packs/Day Years [...] 1:10 PM CDT Documentation [facility] [address] [phone] 08/25/2024 1:20 PM CDT Office Visit [facility] [address] [phone] Migue Reeder MD [address] [place] [address] documented as of this encounter Visit Diagnoses Not on filedocumented in this encounter Additional Health Concerns Infection Onset Date Last Indicated Resolved Time 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 Care Teams Sales Commissions Analyst Relationship Specialty Start Date End Date Toni Ravi MD [address] [place] [address] PCP - General Internal Medicine 04/24/23 Jomar Noble MD [address] [address] Hospitalist Internal Medicine 04/24/23 documented as of this encounter
--- OUTSIDE RECORDS SUMMARY | 2024-06-27 10:32 | XMS_ITS | Encounter Summary ---
Author Organization [facility] Healthcare Address [address] [place] [address] Care Team Providers Care Job Molder Name Role Phone Michelle Delcid MD Primary Care Provider [phone]- [phone] Reason for Visit * Auth/Cert (Routine) Specialty Diagnoses / Procedures Referred By Hoang leroy Referred To Contact Diagnoses Idiopathic esophageal varices without bleeding (CMS/HCC) (HCC) Idiopathic esophageal varices without bleeding (CMS/HCC) (HCC) [I85.00] Procedures [place] ESOPHAGOGASTRODUODENOSCOPY TRANSORAL DIAGNOSTIC ESOPHAGOGASTRODUODENOSCOPY Referral ID Status Reason Start Date Expiration Date Visits Re quested Visits Authorized [id number] 1 1 Encounter Details Date Type Department Care Team (Late st Contact Info) Description 06/04/2023 11:30 AM HAT MENDER - 06/04/2023 12:00 PM HAT MENDER Surgery [facility] [place] [address] [facility] [address] [place] [address] Melody Lilly MD [address] [facility] [address] [place] [address] ESOPHAGOGASTRODUODENOSCOPY Surgery Details Date/Time Status Location OR Service Patient Class Case Class Case Type Trauma Case? 06/04/2023 11:30 AM Posted [facility] ERCP 01 Gastroenterology Outpatient Elective [...] Comments Blood Pressure 130/81 06/04/2023 11:16 AM HAT MENDER Pulse 74 06/04/2023 11:16 AM HAT MENDER Temperature 36 ??C (96.8 ??F) 06/04/2023 11:16 AM HAT MENDER Respiratory Rate 16 06/04/2023 11:16 AM HAT MENDER Oxygen Saturation 98% 06/04/2023 11:16 AM HAT MENDER Inhaled Oxygen Concentration - - Weight 108.9 kg (240 lb) 06/04/2023 11:16 AM HAT MENDER Height 182.9 cm (6') 06/04/2023 11:16 AM HAT MENDER Body Mass Index 32.55 06/04/2023 11:16 AM HAT MENDER documented in this encounter Medications at Time [...] planned procedure for the reasons stated above. MENDER documented in this encounter Procedure Notes * Melody Lilly MD - 06/04/2023 12:17 PM CSTAssociated Order(s): EGD [facility] Patient Name: Chester Dubose Procedure Date: 06/04/2023 12:17 PM Date of : 1970 Admit Type: Outpatient Age: 52 Gender: Male Attending MD: Melody Lilly M.D. Room: [facility] ROOM 1 Note Status: Finalized [...] following this procedure please call my office [phone]). After hours and evenings please call [phone] and speak to the GI fellow oncall [...] On: 06/04/2023 12:17 PM Recognized by the [employer] for promoting quality in endoscopy MENDER documented in this encounter Plan of Treatment Not on file documented as of this encounter Procedures Procedure Name Priority Date/Time Associated Diagnosis Comments ESOPHAGOGASTRODUODENOSCOPY 06/04 12:38 PM HAT MENDER Idiopathic esophageal varices without bleeding (CMS/HCC) (HCC) EGD 06/04/2023 12:17 PM HAT MENDER documented in this encounter Results * EGD (06/04/2023 12:17 PM HAT MENDER) Anatomical Region Laterality Modality Other Narrative Procedure Note Melody Lilly MD - 06/04/2023 12:17 PM CST [facility] Patient Name: Chester Dubose Procedure Date: 06/04/2023 12:17PM Date of : 1970 Admit Type: Outpatient Age: 52 Gender: Male Attending MD: Melody Lilly M.D. Room: [facility] RO[facility] 1 Note Status: Finalized [...] following this procedure please call my office [phone]). After hours and eveningsplease call [phone] and speak to the GI fellow oncall [...] On: 06/04/2023 12:17 PM Recognized by the [employer] for promoting quality [...] at 1145 Rate/Dose Verify 06/04/2023 12:37 PM HAT MENDER 30 mL/hr New Bag 06/04/2023 11:22 AM HAT MENDER 30 mL/hr 30 mL/hr documented in this encounter Discontinued Medications Medication Sig Discontinue Reason Start Date End Da te pantoprazole DR (PROTONIX) 40 mg EC tablet Take 1 tablet (40 mg total) by mouth daily Stop Taking at Discharge 05/08/2022 06/04/2023 documented as of this encounter Active and Recently Administered Medications Times are shown in HAT MENDER. Continuous Medication Order 06/02/2023 06/03/2023 06/04/2023 sodium [...] 06/04/2023 documented in this encounter Care Teams Job Molder Relationship Specialty Start Date End Date Michelle Delcid MD [address] [place] [address] PCP - General Family Medicine 04/27/22 documented as of this encounter
--- OUTSIDE RECORDS SUMMARY | 2024-06-27 10:32 | XMS_ITS | Encounter Summary ---
Author Organization [facility] Address [address] [place] [address] Phone Care Team Providers Care Promotions Executive Name Role Phone Michelle Delcid MD Primary Care Provider [phone]- [phone] Encounter Details Date Type Department Care Team (Late st Contact Info) Description 06/04/2023 Telephone [facility] Gastroenter[facility] [address] [facility] 12th [place] [address] [place] [address] Bibi Greene RN Social History [...] Mahoney MD sent at 06/04/2023 3:21 PM ARCHIVIST POLITICAL HISTORY ----- Labs reasonable. You don't have to [...] years Sex: Male at 06/04/2023 2:01 PM IVIST POLITICAL HISTORY IVIST POLITICAL HISTORY documented in this encounter Plan of Treatment Not on file documented as of this encounter Visit Diagnoses Not on filedocumented in this encounter Care Teams Promotions Executive Relationship Specialty Start Date End Date Michelle Delcid MD [address] [place] [address] PCP - General Family Medicine 04/27/22 documented as of this encounter
--- OUTSIDE RECORDS SUMMARY | 2024-06-27 10:32 | XMS_ITS | Encounter Summary ---
Author Organization [facility] Healthcare Address [address] [place] [address] Care Team Providers Care Assessment Coordinator Name Role Phone Michelle Delcid MD Primary Care Provider [phone]- [phone] Reason for Visit * Auth/Cert (Routine) Specialty Diagnoses / Procedures Referred By Hoang leroy Referred To Contact Diagnoses Idiopathic esophageal varices without bleeding (CMS/HCC) (HCC) Idiopathic esophageal varices without bleeding (CMS/HCC) (HCC) [I85.00] Procedures [place] ESOPHAGOGASTRODUODENOSCOPY TRANSORAL DIAGNOSTIC ESOPHAGOGASTRODUODENOSCOPY Referral ID Status Reason Start Date Expiration Date Visits Re quested Visits Authorized [id number] 1 1 Encounter Details Date Type Department Care Team ([facility] st Contact Info) Description 06/04/2023 4:15 PM SENIOR CORPORATE STRATEGY MANAGER Lab [facility] Advanced Medicine [facility] Advanced Medicine ([facility]) [address] [place] [phone] Alcoholic cirrhosis of liver without ascites (CMS/HCC) [...] Diagnosis Comments EGFR Routine 06/04/2023 2:01 PM SENIOR CORPORATE STRATEGY MANAGER Alcoholic cirrhosis of liver without ascites (CMS/HCC) (HCC) [id number], TUMOR MARKER Routine 06/04/2023 2:01 PM SENIOR CORPORATE STRATEGY MANAGER Alcoholic cirrhosis of liver without ascites (CMS/HCC) (HCC) PROTIME-INR Routine 06/04/2023 2:01 PM SENIOR CORPORATE STRATEGY MANAGER Alcoholic cirrhosis of liver without ascites (CMS/HCC) (HCC) CBC WITHOUT DIFFERENTIAL Routine 06/04/2023 2:01 PM SENIOR CORPORATE STRATEGY MANAGER Alcoholic cirrhosis of liver without ascites (CMS/HCC) (HCC) COMPREHENSIVE METABOLIC PANEL Routine 06/04/2023 2:01 PM SENIOR CORPORATE STRATEGY MANAGER Alcoholic cirrhosis of liver without ascites (CMS/HCC) (HCC) documented in this encounter Results * eGFR (06/04/2023 2:01 PM SENIOR CORPORATE STRATEGY MANAGER) eGFR >90 >=60 mL/min/1. 73 m2 [facility] Comment: Interpretive Data Reference Interval Normal ?>/= [...] last reviewed 2021. Blood 06/04/2023 2:01 PM SENIOR CORPORATE STRATEGY MANAGER 06/04/2023 2:36 PM SENIOR CORPORATE STRATEGY MANAGER Romeo Mahoney MD LAB BLOOD ORDERABLES F inal Result [facility] Department [place] [address] * (ABNORMAL) Comprehensive metabolic panel (06/04/2023 2:01 PM SENIOR CORPORATE STRATEGY MANAGER) Sodium 143 135 - 145 mmol/L [facility] Potassium, pl 4.0 3.3 - 4.9 mmol/L [facility] Chloride 110 97 - 110 mmol/L [facility] CO2 24 22 - 32 mmol/L [facility] Anion gap 9 2 - 15 mmol/L [facility] BUN 6 6 - 25 mg/dL [facility] Creatinine 0.72(L) 0.80 - 1.30 mg/dL [facility] Glucose 167 70 - 199 mg/dL [facility] Comment: Interpretive Data Fasting glucose >/= 126 [...] 2022. Calcium 8.4(L) 8.5 - 10.3 mg/dL [facility] Bilirubin, total 1.1 0.1 - 1.2 mg/dL [facility] Protein, pl 7.1 6.5 - 8.5 g/dL [facility] Albumin 3.8 3.5 - 5.0 g/dL [facility] Alk phos 136(H) 40 - 130 Units/L [facility] ALT 40 7 - 55 Units/L [facility] AST 64(H) 10 - 50 Units/L [facility] Blood 06/04/2023 2:01 PM SENIOR CORPORATE STRATEGY MANAGER 06/04/2023 2:31 PM SENIOR CORPORATE STRATEGY MANAGER Romeo Mahoney MD LAB BLOOD ORDERABLES F inal Result [facility] Department [place] [address] * (ABNORMAL) CBC without differential (06/04/2023 2:01 PM SENIOR CORPORATE STRATEGY MANAGER) WBC 3.1(L) 3.8 - 9.9 K/cumm [facility] Hgb 13.4 13.0 - 17.5 g/dL [facility] Hct 38.2(L) 38.9 - 50.3 % [facility] Plt 69(L) 150 - 400 K/cumm [facility] MPV 10.0 9.1 - 12.3 fL [facility] RBC 4.09(L) 4.30 - 5.80 M/cumm [facility] MCV 93.4 81.3 - 96.4 fL [facility] MCH 32.8 27.1 - 33.3 pg [facility] MCHC 35.1 32.3 - 35.7 g/dL [facility] RDW CV 14.0 11.1 - 14.9 % [facility] RDW SD 47.5 35.7 - 48.1 fL [facility] NRBC abs 0.00 0.00 - 0.01 K/cumm [facility] Blood 06/04/2023 2:01 PM SENIOR CORPORATE STRATEGY MANAGER 06/04/2023 2:31 PM SENIOR CORPORATE STRATEGY MANAGER Romeo Mahoney MD LAB BLOOD ORDERABLES F inal Result Performing Organization Address [facility] Co de Phone Number [facility] Department [place] [address] * (ABNORMAL) Protime-INR (06/04/2023 2:01 PM SENIOR CORPORATE STRATEGY MANAGER) Pathologist [facility] PT 16.1(H) 10.3 - 13.7 sec [facility] INR 1.41(H) 0.90 - 1.20 [facility] Comment: Interpretive data Oral anticoagulant therapeutic ranges: Venous thromboembolism prophylaxis or treatment: 2.0-3.0 CARDIOLOGY Standard range: 2.0-3.0 High-intensity range: 2.5-3.5 Refer to indication-specific guidelines for appropriate target ranges for prosthetic heart valve replacement. Current interpretive data was last revised on 2019. Blood 06/04/2023 2:01 PM SENIOR CORPORATE STRATEGY MANAGER 06/04/2023 2:31 PM SENIOR CORPORATE STRATEGY MANAGER Romeo Mahoney MD LAB BLOOD ORDERABLES F inal Result Performing Organization Address [facility] Co de Phone Number [facility] Department [place] [address] * [id number]-[id number], Tumor Marker (06/04/2023 2:01 PM SENIOR CORPORATE STRATEGY MANAGER) Pathologist [facility] alpha Fetoprotein 2.2 <=8.3 ng/mL [facility] Comment: Interpretive Data The Meaghan AFP assay [...] 2018;57:783-797 Fide V. et al. ??Clin Chem 2014;8290-1815. Current interpretive data was last revised 2022. Blood 06/04/2023 2:01 PM SENIOR CORPORATE STRATEGY MANAGER 06/04/2023 2:31 PM SENIOR CORPORATE STRATEGY MANAGER Romeo Mahoney MD LAB BLOOD ORDERABLES F inal Result [facility] Department [place] [address] documented in this encounter Visit Diagnoses Diagnosis Alcoholic cirrhosis of liver without ascites (CMS/HCC) (HCC) documented in this encounter Care Teams Assessment Coordinator Relationship Specialty Start Date End Date Michelle Delcid MD [address] [place] [address] PCP - General Family Medicine 04/27/22 documented as of this encounter
--- OUTSIDE RECORDS SUMMARY | 2024-06-27 10:32 | XMS_ITS | Encounter Summary ---
Author Organization [facility] Address [address] [place] [address] Phone Care Team Providers Care Vessel Manager Name Role Phone Michelle Delcid MD Primary Care Provider +1- [phone] Reason for Visit * Reason Onset Date Comments GI Preprocedure 10/03/2022 Encounter Details Date Type Department Care Team (Late st Contact Info) Description 10/03/2022 Telephone [facility] Gastroenterology [address] [place] [address] Medical Office Building [address], [address] [place] [address] May Shrestha RN GI Preprocedure [...] 08/2021 ENDOCRINE: None PRIOR PROCEDURE ISSUES: None BUSINESS RULES DEVELOPER/: NA IMPLANTS.: None Notes: DIABETIC MEDS Y/N: [...] [] Location limitations: Scheduling Scheduling location limitations: Judo Instructor needed [x] NA Language: POA [] NA Name: Sarah Dubose / Kimber[place] ([place] staff) SPECIAL PROCEDURE INSTRUCTIONS Scheduling Notes Procedure information Date of procedure: 10/18/2022 Time of procedure: 1030 Arrival time: 0930 Location: [facility] Proceduralist: Ismail Instructions Method of instructions: Mailed copy and Verbal [x]Confirmation of ride/special education itinerant teacher [x]Post anesthesia restrictions given [x]NPO Instructions: [x]Diet Instructions: [x]Take non-blood thinner prescription meds that morning [x]Bring med list, photo ID, insurance card, no valuables [x]Bring COVID vaccination card (if vaccinated) Bowel Prep Prep prescribed: NA Method of Bowel Prep (RX): NA ----- Message from May Shrestha RN sent at 05/08/2022 1:49 PM POURER CRANE LADLE ----- Regarding: EGD/Ismail lease call patient and [...] 10/03/2022 documented in this encounter Care Teams Vessel Manager Relationship Specialty Start Date End Date Michelle Delcid MD [address] [place] [address] PCP - General Family Medicine 04/27/22 documented as of this encounter
--- OUTSIDE RECORDS SUMMARY | 2024-06-27 10:32 | XMS_ITS | Encounter Summary ---
Author Organization [facility] Healthcare Address [address] [place] [address] Care Team Providers Care Jig Boring Machine Operator For Metal Name Role Phone Michelle Delcid MD Primary Care Provider +1- [phone] Reason for Visit * Auth/Cert (Routine) Specialty [...] liver without ascites (CMS/HCC) (HCC) [K70.30] Procedures [place] ESOPHAGOGASTRODUODENOSCOPY TRANSORAL DIAGNOSTIC EGD Referral ID Status Reason Start Date Expiration Date Visits Re quested Visits Authorized [id number] 1 1 Encounter Details Date Type Department Care Team (Late st Contact Info) Description 10/18/2022 10:26 AM CDT Anesthesia Event [facility] [address] [place] [address] Bibi Maldonado MD [address] [facility] [place] [address] Yessenia Vargas CRNA [address] [facility] [place], [place] [id number] Anesthesia Record Procedure Summary Procedure Name Responsible [...] Procedure Summary Date: 10/18/22 Room / Location: [facility] [place] GI / [facility] Anesthesia Start: 1026 Anesthesia Stop: 1044 [...] - patient participated Level of consciousness: arouses gastroenterology nurse practitioner and follows simple commands Pain management: adequate [...] Medication protocol when under care of a SUPERINTENDENT FACTORY Planned anesthesia: General/TIVA Induction: Induction: intravenous. Postoperative Plan: No plan for postoperative opioid use. No postoperative mechanical ventilation intended. Patient's planned disposition post procedure is Outpatient. Informed Consent: Discussed plan with SUPERINTENDENT FACTORY. Anesthesia plan and risks discussed with patient. [...] mL/hr documented in this encounter Care Teams Jig Boring Machine Operator For Metal Relationship Specialty Start Date End Date Michelle Delcid MD [address] [place] [address] PCP - General Family Medicine 04/27/22 documented as of this encounter
--- OUTSIDE RECORDS SUMMARY | 2024-06-27 10:32 | XMS_ITS | Encounter Summary ---
Author Organization [facility] Healthcare Address [address] [place] [address] Care Team Providers Care Tray Drier Name Role Phone Michelle Delcid MD Primary Care Provider +1- [phone] Reason for Visit * Auth/Cert (Routine) Specialty Diagnoses / Procedures Referred By Hoang t Referred To Contact Diagnoses Idiopathic esophageal varices without bleeding (CMS/HCC) (HCC) Idiopathic esophageal varices without bleeding (CMS/HCC) (HCC) [I85.00] Procedures [place] ESOPHAGOGASTRODUODENOSCOPY TRANSORAL DIAGNOSTIC ESOPHAGOGASTRODUODENOSCOPY Referral ID Status Reason Start Date Expiration Date Visits Re quested Visits Authorized [id number] 1 1 Encounter Details Date Type Department Care Team ([facility] st Contact Info) Description 06/04/2023 12:37 PM PRINCIPAL DEVELOPER Anesthesia Event [facility] [place] [address] [facility] [address] [place] [address] Karlo Banerjee MD [address] [facility] [address] [place] [address] Anesthesia Record Procedure Summary Procedure Name Responsible [...] Procedure Summary Date: 06/04/23 Room / Location: [facility] ENDOSCOPY ROOM 1 / [facility]COPY Anesthesia Start: 1237 Anesthesia Stop: 1255 [...] Karlo Banerjee MD at 06/04/2023 2:34 PM PRINCIPAL DEVELOPER CIPAL DEVELOPER CIPAL DEVELOPER * Anesthesia Preprocedure Evaluation - Karlo Banerjee MD - 06/04/2023 11:30 AM CST Images from the original note were not included. Anesthesia Evaluation Chester Dubose Jr. is a 52 y.o. male Procedure(s): ESOPHAGOGASTRODUODENOSCOPY Pre-Op Diagnosis Codes: * Idiopathic esophageal varices without bleeding (CMS/HCC) ([facility]) [I85.00] Patient Active Problem List Diagnosis Date [...] Medication protocol when under care of a FOXPRO DEVELOPER Planned anesthesia: MAC Informed Consent: Discussed plan with FOXPRO DEVELOPER. Anesthesia plan and risks discussed with patient. Consent and Attending signature: I and/or my designee have discussed the anesthesia plan, benefits, possible alternatives, parental presence at time of induction (if indicated), and clinically relevant risks that may include dental injury, unintentional awareness, and/or other complications. The patient and/or parent/legal guardian understand, and agree to proceed. All questions answered. CIPAL DEVELOPER documented in this encounter Plan of Treatment [...] ArrhythmiasIndications :Ventricular Arrhythmias Given 06/04/2023 12:40 PM PRINCIPAL DEVELOPER 100 mg midazolam (VERSED) 2 mg/2 mL preservative free injection intravenous, Administer over 2 Minutes, As needed, Starting on Sun06/04/23 at 1240, Anesthesia Intra-op Given 06/04/2023 12:40 PM PRINCIPAL DEVELOPER 2 mg propofoL (DIPRIVAN) 10 mg/mL IV intravenous, As needed, Starting on Sun06/04/23 at 1240, Anesthesia Intra-op New Bag 06/04/2023 12:40 PM PRINCIPAL DEVELOPER 100 mg propofoL (DIPRIVAN) 10 mg/mL IV intravenous, Continuous PRN, Starting on Sun06/04/23 at 1244, Anesthesia Intra-op New Bag 06/04/2023 12:44 PM PRINCIPAL DEVELOPER 150 mcg/kg/min 98.01 mL/hr sodium chloride 0.9% infusion 30 mL/hr, intravenous, Continuous, Starting on Sun06/04/23 at 1145 Rate/Dose Verify 06/04/2023 12:37 PM PRINCIPAL DEVELOPER 30 mL/hr New Bag 06/04/2023 11:22 AM PRINCIPAL DEVELOPER 30 mL/hr 30 mL/hr documented in this encounter Care Teams Tray Drier Relationship Specialty Start Date End Date Michelle Delcid MD [address] [place] [address] PCP - General Family Medicine 04/27/22 documented as of this encounter
--- OUTSIDE RECORDS SUMMARY | 2024-06-27 10:32 | XMS_ITS | Encounter Summary ---
Author Organization [facility] Address [address] [place] [address] Phone Care Team Providers Care Staff Electrical Engineer Name Role Phone Michelle Delcid MD Primary Care Provider +1- [phone] Encounter Details Date Type Department Care Team (Late st Contact Info) Description 04/30/2024 Telephone [facility] Gastroenterology [address] [place] [address] Medical Office Building 4, [address] [place] [address] Melody Lilly MD [address] [place] [address] Social History Tobacco Use Types [...] None ENDOCRINE: None PRIOR PROCEDURE ISSUES: None COLLISION ESTIMATOR/: NA IMPLANTS.: None PSYCH/Behavioral Hx: Yes Schizoaffective, [...] and to contact their ordering MD or Jackerman about bridging medication for procedure. No [] Yes - Letter Sent to Ordering Physician/Jackerman Date sent: Hold instructions: GLP Weight Loss Medications No Educated Patient on the need to hold Medication, and to contact their ordering MD or Jackerman about bridging medication for procedure. Y/N: No/NA None [] Yes - Letter Sent to Ordering Physician/Jackerman Hold older Instructions: BLOOD THINNERS/ANTICOAG/ANTIPLATELET (BESIDES ASA) Medication: NONE Physician contacted for hold order/date sent: Hold order Method sent: Date hold received: Hold instructions: CONTINUE ASPIRIN INFORMATION REQUESTED []Imaging: []Medical Progress Note/H&P []Medication list []Other: PATIENT OPTIMIZATION []Physician reviewing escalation: []CPAP: Date scheduled: Outcome : [] Location limitations: Scheduling Scheduling location limitations: Structures Assembler needed [x] NA Language: POA [] NA Name: Sarah Dubose, sister Required extended education:no SPECIAL PROCEDURE INSTRUCTIONS Scheduling Notes Procedure information Date of procedure: 06.04.24 Time of procedure: 11:30 AM Arrival time: 10:30 AM Location: [facility] Proceduralist: Dr. Lilly Instructions Method of instructions: MyChart, Mailed Copy, and Verbal [x]Confirmation of ride/cryptological technician [x]Post anesthesia restrictions given [x]NPO Instructions: [x]Diet Instructions: [x]Take non-blood thinner prescription meds that morning [x]Bring med list, photo ID, insurance card, no valuables [x]Bring COVID vaccination card (if vaccinated) Bowel Prep Prep prescribed: NA Method of Bowel Prep (RX): NA Copy of instructions also mailed to care home where pt resides to address on file ENT PROCESSOR * Telephone Encounter - Nidia Avalos - 04/30/2024 11:32 AM CST Called and spoke with sister Sarah states is working right now and will c/b tomorrow to schedule ENT PROCESSOR * Telephone Encounter - Nidia Avalos - 04/30/2024 11:15 AM CST ----- Message from Nurse May Luke sent at 06/07/2023 8:47 AM PIGMENT PROCESSOR ----- Regarding: EGD/ISMAIL Repeat EGD in one year for surveillance, (or earlier if decompensation in 6 months) ENT PROCESSOR documented in this encounter Plan of Treatment Not on file documented as of this encounter Visit Diagnoses Diagnosis Esophageal varices without bleeding, unspecified esophageal varices type (HCC)- Primary documented in this encounter Orders Case Request Count Last Ordered Date First Orde red Date CASE REQUEST GI 1 05/02/2024 documented in this encounter Care Teams Staff Electrical Engineer Relationship Specialty Start Date End Date Michelle Delcid MD [address] [place] [address] PCP - General Family Medicine 04/27/22 documented as of this encounter
--- OUTSIDE RECORDS SUMMARY | 2024-06-27 10:32 | XMS_ITS | Encounter Summary ---
Author Organization [facility] Healthcare Address [address] [place] [address] Care Team Providers Care Marketing Outreach Coordinator Name Role Phone Michelle Delcid MD Primary Care Provider +1- [phone] Reason for Visit * Auth/Cert (Routine) Specialty [...] liver without ascites (CMS/HCC) (HCC) [K70.30] Procedures [place] ESOPHAGOGASTRODUODENOSCOPY TRANSORAL DIAGNOSTIC EGD Referral ID Status Reason Start Date Expiration Date Visits Re quested Visits Authorized [id number] 1 1 Encounter Details Date Type Department Care Team (Latest Contact Info) Description 10/18/2022 9:41 AM CDT - 10/18/2022 11:40 AM CDT Hospital Encounter [facility] [address] [place] [address] Melody Lilly MD [address] [place] [address] Discharge Disposition: Discharge to home or self [...] Male Attending MD: Melody Lilly M.D. Room: [facility] ENDOSCOPY ROOM 2 Note Status: Finalized Procedure: [...] AM Admit Type: Outpatient Room: [facility] Date of : 1970 Instrument Name: [id number] [...] following this procedure please call my office [phone]). After hours and evenings please call [phone] and speak to the GI fellow oncall [...] AM Admit Type: Outpatient Room: [facility] Date of : 1970 Instrument Name: [id number] [...] following this procedure please call my office [phone]). After hours and eveningsplease call [phone] and speak to the GI fellow oncall [...] 10/18/2022 documented in this encounter Care Teams Marketing Outreach Coordinator Relationship Specialty Start Date End Date Michelle Delcid MD [address] [place] [address] PCP - General Family Medicine 04/27/22 documented as of this encounter
--- OUTSIDE RECORDS SUMMARY | 2024-06-27 10:32 | XMS_ITS | Referral Summary ---
Author Organization [facility] Address [address] [place] [address] Care Team Providers Care Airline Dispatcher Name Role Phone Michelle Delcid MD Primary Care Provider +1- [phone] Encounters Date Type Department Care Team Description 06/04/2024 11:30 AM CAREER TECHNICAL SUPERVISOR - 06/04/2024 12:00 PM CAREER TECHNICAL SUPERVISOR Surgery [facility] [address] [address] Melody Lilly MD ESOPHAGOGASTRODUODENOSCOPY 06/04/2024 10:34 AM CAREER TECHNICAL SUPERVISOR Anesthesia Event [facility] [place] [address] [facility] [address] [place] [address] German Caballero MD 06/04/2024 10:05 AM CAREER TECHNICAL SUPERVISOR - 06/04/2024 11:20 AM CAREER TECHNICAL SUPERVISOR Hospital Encounter [facility] Critical access hospital1 [facility] [address] [place] [address] Melody Lilly MD Discharge Disposition: Discharge to home or self care 05/30/2024 Telephone [facility] Specialty Services [address] [place] [phone] Guillermina Jade RN GI Preprocedure 05/28/2024 Telephone [facility] Specialty Services [address] [place] [phone] Guillermina Jade RN GI Preprocedure 04/30/2024 Telephone [facility] [address] Medical Office Building [address], [address] [place] [address] Melody Lilly MD from Last [...] 06/20/2021 Assessment & Plan (06/20/2021 1:57 PM CAREER TECHNICAL SUPERVISOR): Continue tamsulosin BMI 26.0-26.9,adult 06/09/2021 Bilateral carpal [...] 06/08/2020 Assessment & Plan (06/09/2021 8:05 AM CAREER TECHNICAL SUPERVISOR): Stable on pramipexole Assessment & Plan (12/01/2020 12:59 PM CDT): Stable on pramipexole Assessment & Plan (11/09/2020 2:26 PM CDT): Not controlled with gapapentine alone. On it for polyneuropathy and it worked for RLS also. Will try additional treatment. If not better in 2 weeks, call back to increase dose. Assessment & Plan (06/08/2020 1:21 PM CAREER TECHNICAL SUPERVISOR): Chronic for years. Previously responded well to night dose of gabapentin. Will restart that again. Drug-induced polyneuropathy 06/08/2020 Assessment & Plan (06/09/2021 8:05 AM CAREER TECHNICAL SUPERVISOR): Stable on gabapentin Assessment & Plan (12/01/2020 12:59 PM CDT): Stable on gabapentin Assessment & Plan (06/08/2020 1:22 PM CAREER TECHNICAL SUPERVISOR): Chronic for years. Previously responded well to night dose of gabapentin. Will restart that again. Chronic right shoulder pain 05/27/2020 Assessment & Plan (05/27/2020 2:29 PM CAREER TECHNICAL SUPERVISOR): Will start with checking an x-ray of [...] needed. Assessment & Plan (06/09/2021 8:04 AM CAREER TECHNICAL SUPERVISOR): Status post banding. Followed by Dr. Nagy Assessment & Plan (12/01/2020 12:59 PM CDT): Status post banding. Assessment & Plan (05/27/2020 2:05 PM CAREER TECHNICAL SUPERVISOR): Status post banding. Due for repeat EGD by Dr. Douglas. History of hepatitis C virus infection 0 Assessment & Plan (12/01/2020 12:58 PM CDT): Currently undetectable Assessment & Plan (05/25/2020 1:34 PM CAREER TECHNICAL SUPERVISOR): Currently undetectable Hepatic encephalopathy 04/08/2020 Assessment & Plan (03/15/2023 6:49 PM CDT): Good control on current medical management. No changes indicated. Assessment & Plan (03/02/2022 8:09 PM CDT): No evidence of recurrence. Currently not on medical management. Assessment & Plan (06/20/2021 2:05 PM CAREER TECHNICAL SUPERVISOR): Stable on Xifaxan Assessment & Plan (12/01/2020 12:59 PM CDT): Stable on Xifaxan and lactulose Assessment & Plan (05/25/2020 1:32 PM CAREER TECHNICAL SUPERVISOR): Stable on Xifaxan and lactulose Assessment & [...] Denies SI/HI. Previously followed with Psychiatrist in [facility] but does not remember the name. -at this time, I do not feel comfortable giving him medication for anxiety due to the uncertainty of psych diagnosis -will order one time psych visit to clarify and then connect him to either [facility] or [facility] -will task the SW [...] follow. Assessment & Plan (06/09/2021 8:02 AM CAREER TECHNICAL SUPERVISOR): Sera. Follows with Dr. Nagy. Continue Abhishek Assessment & Plan (12/02/2020 2:58 PM CDT): Sera. No evidence of ascites. Currently being followed by Dr. Nagy. Continue Abhishek Assessment & Plan (05/25/2020 1:30 PM CAREER TECHNICAL SUPERVISOR): Sera. Currently being followed by Dr. Mahoney [...] 02/20/2019 Assessment & Plan (05/25/2020 1:34 PM CAREER TECHNICAL SUPERVISOR): Stable on metoprolol and amlodipine Schizoaffective disorder, [...] decompensation. Assessment & Plan (06/09/2021 8:03 AM CAREER TECHNICAL SUPERVISOR): Currently remains sober. Has not drank since December of 2019 Assessment & Plan (12/01/2020 1:02 PM CDT): Currently staying sober. Has not drank since December of 2019. Assessment & Plan (06/24/2019 3:14 PM CAREER TECHNICAL SUPERVISOR): Patient presents acutely intoxicated wanting to go to rehab. Already accepted to [facility] ([phone]) but cannot do acute medical detox which patient will likely need with large alcohol consumption history and past history of DT. -send to ER for admission for medical detox from [facility] -on discharge send patient [facility] ([phone]) Resolved Problems Problem Noted Date Diagnosed Date [...] high risk): negative--not immunized - HCV ( 4129-2679): s/p treatment with RNA NR 02/2019 - [...] ~9 since arrival. -Continue CLD, NPO at [facility] for possible EGD Hematochezia 02/21/2019 12/01/2020 Assessment [...] Quadrivalent, Spl it, Preservative Free, Intramuscular 04/02/2019 Mark media SARS-CoV-2 Monovalent Vaccination (12+ Yrs) PURPLE 10/12/2020,09/21/2020 [...] Comments Blood Pressure 123/67 06/04/2024 11:07 AM CAREER TECHNICAL SUPERVISOR Pulse 70 06/04/2024 11:07 AM CAREER TECHNICAL SUPERVISOR Temperature 36.4 ??C (97.5 ??F) 06/04/2024 10:[address] Respiratory Rate 25 06/04/2024 11:07 AM CAREER TECHNICAL SUPERVISOR Oxygen Saturation 95% 06/04/2024 11:07 AM CAREER TECHNICAL SUPERVISOR Inhaled Oxygen Concentration - - Weight 93.9 kg (207 lb) 06/04/2024 10:19 AM CAREER TECHNICAL SUPERVISOR Height 182.9 cm (6') 06/04/2024 10:19 AM CAREER TECHNICAL SUPERVISOR Body Mass Index 28.07 06/04/2024 10:19 AM CAREER TECHNICAL SUPERVISOR Plan of Treatment Not on file Procedures Procedure Name Priority Date/Time Associated Diagnosis Comments EGD 06/04/2024 10:37 AM CAREER TECHNICAL SUPERVISOR ESOPHAGOGASTRODUODENOSCOPY 06/04 10:35 AM CAREER TECHNICAL SUPERVISOR Esophageal varices without bleeding, unspecified esophageal varices type (HCC) HEPATITIS PANEL, ACUTE Routine 0 5:41 AM CDT from Last 3 Months or Most Recently Relevant to Health Maintenance Results * EGD (06/04/2024 10:37 AM CAREER TECHNICAL SUPERVISOR) Anatomical Region Laterality Modality Other Narrative Procedure Note Melody Lilly MD - 06/04/2024 10:37 AM CST [facility] Patient Name: Chester Dubose Procedure Date: 06/04/2024 10:37AM Date of : 1970 Admit Type: Outpatient Age: 53 Gender: Male Attending MD: Melody Lilly M.D. Room: [facility] ENDOSCOPY ROOM 9 Note Status: Finalized [...] following this procedure please call my office [phone]). After hours and eveningsplease call [phone] and speak to the GI fellow oncall [...] (12/10/2019 5:41 AM CDT) HepBsAg NONREACT NONREACTIVE [facility] Comment: Siemens CentaurXP using CHRISTOPHER (chemiluminescent immunoassay) technology. NONREACTIVE: IgM antibodies to Hepatitis B Surface antigen not detected. REACTIVE: IgM antibodies to Hepatitis B Surface antigen detected. Reactive results will be confirmed by neutralization testing. HBsAb qn 10.95 mIU/mL [facility] Comment: Siemens CentaurXP using CHRISTOPHER (chemiluminescent immunoassay) technology. 9.99 IU/L or less.....NONREACTIVE: IgM antibodies to Hepatitis B Surface antibody are not detected. 10.00 IU/L or greater..REACTIVE: IgM antibodies to Hepatitis B Surface antibody are detected. Hep B core IgM NONREACT NONREACTIVE [facility][NOTE 3] Comment: Siemens CentaurXP using CHRISTOPHER (chemiluminescent immunoassay) technology. NONREACTIVE: IgM antibodies to Hepatitis B Core antigen not detected. EQUIVOCAL: IgM antibodies to Hepatitis B Core antigen may or may not be present. Obtain a ??new specimen and retest. REACTIVE: IgM antibodies to Hepatitis B Core antigen detected. Hep A IgM NONREACT NONREACTIVE [facility] Comment: Siemens CentaurXP using CHRISTOPHER (chemiluminescent immunoassay) technology. NONREACTIVE: IgM antibodies to Hepatitis A not detected. This does not exclude possibility of exposure to Hepatitis A or early acute infection. EQUIVOCAL:IgM antibodies to Hepatitis A may or may not be present. Suggest recollection and retest. REACTIVE: Antibodies to Hepatitis A detected. Hep C Ab REACTIVE(A) NONREACTIVE [facility] Comment: Sample to be confirmed by HCV quantitative NAAT. Siemens Affinity LabsaurXP using CHRISTOPHER (chemiluminescent immunoassay) technology. NONREACTIVE: Antibodies [...] IN Meir Irving MD LAB MICROBIOLOGY - [facility] ORDERABLES Final Result [facility] [address] [place] [address], [facility] [phone] from Last 3 Months or Most Recently Relevant to Health Maintenance Insurance [facility] MEDICARE [facility] MEDICARE [employer] MEDICARE Advance Directives For more information, please contact: [phone] Documents on File Type Date Recorded Patient Supervising Floorperson Expl anation ADVANCE DIRECTIVE 12/31/2019 12:00 AM QUINCY R OF REAL ESTATE LEGAL ASSISTANT FINANCIAL/MEDICAL * Full Code (Latest Code Status [...] 5:52 AM 02/25/2019 7:16 PM Care Teams Airline Dispatcher Relationship Specialty Start Date End Date Michelle Delcid MD [address] [place] [address] PCP - General Family Medicine 04/27/22
--- OUTSIDE RECORDS SUMMARY | 2024-06-27 10:32 | XMS_ITS | Encounter Summary ---
Author Organization [facility] Address [address] [place] [address] Phone Care Team Providers Care Real Estate Administrator Name Role Phone Michelle Delcid MD Primary Care Provider +1- [phone] Encounter Details Date Type Department Care Team (Late st Contact Info) Description 05/08/2022 Orders Only [facility] Gastroenterology [address] [place] [address] Medical Office Building [address], [address] [place] [address] May Shrestha RN Social History [...] documented as of this encounter Care Teams Real Estate Administrator Relationship Specialty Start Date End Date Michelle Delcid MD [address] [place] [address] PCP - General Family Medicine 04/27/22 documented as of this encounter
--- OUTSIDE RECORDS SUMMARY | 2024-06-27 10:32 | XMS_ITS | Encounter Summary ---
Author Organization [facility] Healthcare Address [address] [place] [address] Care Team Providers Care Hog Killer Name Role Phone Michelle Delcid MD Primary Care Provider +1- [phone] Reason for Visit * Auth/Cert (Routine) Specialty [...] liver without ascites (CMS/HCC) (HCC) [K70.30] Procedures [place] ESOPHAGOGASTRODUODENOSCOPY TRANSORAL DIAGNOSTIC EGD Referral ID Status Reason Start Date Expiration Date Visits Re quested Visits Authorized [id number] 1 1 Encounter Details Date Type Department Care Team (Late st Contact Info) Description 10/18/2022 10:30 AM CDT - 10/18/2022 11:00 AM CDT Surgery [facility] [address] [place] [phone] Melody Lilly MD [address] [place] [address] EGD Surgery Details Date/Time Status Location OR Service Patient Class Case Class Case Type Trauma Case? 10/18/2022 10:30 AM Posted [facility] ENDOSCOPY GI 06 Gastroenterology Outpatient Elective Panel [...] 10/18/2022 10:00 AM Admit Type: Outpatient Room: [facility] Date of : 1970 Instrument [...] following this procedure please call my office [phone]). After hours and evenings please call [phone] and speak to the GI fellow oncall [...] 10/18/2022 10:00 AM Admit Type: Outpatient Room: [facility] Date of : 1970 Instrument Name: [id number] [...] following this procedure please call my office [phone]). After hours and eveningsplease call [phone] and speak to the GI fellow oncall [...] 10/18/2022 documented in this encounter Care Teams Hog Killer Relationship Specialty Start Date End Date Michelle Delcid MD [address] [place] [address] PCP - General Family Medicine 04/27/22 documented as of this encounter
--- OUTSIDE RECORDS SUMMARY | 2024-06-27 10:32 | XMS_ITS | Encounter Summary ---
Author Organization [facility] Healthcare Address [address] [place] [address] Care Team Providers Care Tire Retreader Name Role Phone Michelle Delcid MD Primary Care Provider +1- [phone] Reason for Visit * Auth/Cert (Routine) Specialty Diagnoses / Procedures Referred By Hoang t Referred To Contact Diagnoses Esophageal varices without bleeding, unspecified esophageal varices type (HCC) Esophageal varices without bleeding, unspecified esophageal varices type (HCC) [I85.00] Procedures [place] ESOPHAGOGASTRODUODENOSCOPY TRANSORAL DIAGNOSTIC EGD Referral ID Status Reason Start Date Expiration Date Visits Re quested Visits Authorized [id number] 1 1 Encounter Details Date Type Department Care Team (Latest Contact Info) Description 06/04/2024 10:05 AM MVA REACTOR OPERATOR HEAD - 06/04/2024 11:20 AM [facility] Hospital Encounter [facility] [place] [address] [facility] [address] [place] [address] Melody Lilly MD [address] [facility] [address] [place] [address] Discharge Disposition: Discharge to home or self [...] Comments Blood Pressure 123/67 06/04/2024 11:07 AM MVA REACTOR OPERATOR HEAD Pulse 70 06/04/2024 11:07 AM MVA REACTOR OPERATOR HEAD Temperature 36.4 ??C (97.5 ??F) 06/04/2024 10:[address] Respiratory Rate 25 06/04/2024 11:07 AM MVA REACTOR OPERATOR HEAD Oxygen Saturation 95% 06/04/2024 11:07 AM MVA REACTOR OPERATOR HEAD Inhaled Oxygen Concentration - - Weight 93.9 kg (207 lb) 06/04/2024 10:19 AM MVA REACTOR OPERATOR HEAD Height 182.9 cm (6') 06/04/2024 10:19 AM MVA REACTOR OPERATOR HEAD Body Mass Index 28.07 06/04/2024 10:19 AM MVA REACTOR OPERATOR HEAD documented in this encounter Medications at Time [...] planned procedure for the reasons stated above. REACTOR OPERATOR HEAD documented in this encounter Procedure Notes * Melody Lilly MD - 06/04/2024 10:37 AM CSTAssociated Order(s): EGD [facility] Patient Name: Chester Dubose Procedure Date: 06/04/2024 10:37 AM Date of : 1970 Admit Type: Outpatient Age: 53 Gender: Male Attending MD: Melody Lilly M.D. Room: [facility] ENDOSCOPY ROOM 9 Note Status: Finalized [...] following this procedure please call my office [phone]). After hours and evenings please call [phone] and speak to the GI fellow oncall [...] 0 Note Initiated On: 06/04/2024 10:37 AM REACTOR OPERATOR HEAD documented in this encounter Plan of Treatment Not on file documented as of this encounter Procedures Procedure Name Priority Date/Time Associated Diagnosis Comments EGD 06/04/2024 10:37 AM MVA REACTOR OPERATOR HEAD ESOPHAGOGASTRODUODENOSCOPY 06/04 10:35 AM MVA REACTOR OPERATOR HEAD Esophageal varices without bleeding, unspecified esophageal varices type (HCC) documented in this encounter Results * EGD (06/04/2024 10:37 AM MVA REACTOR OPERATOR HEAD) Anatomical Region Laterality Modality Other Narrative Procedure Note Melody Lilly MD - 06/04/2024 10:37 AM CST [facility] Patient Name: Chester Dubose Procedure Date: 06/04/2024 10:37AM Date of : 1970 Admit Type: Outpatient Age: 53 Gender: Male Attending MD: Melody Lilly M.D. Room: [facility] ENDOSCOPY ROOM 9 Note Status: Finalized [...] passed under direct vision. The GIF [id number] endoscope was introducedthrough the mouth, and advanced [...] following this procedure please call my office [phone]). After hours and eveningsplease call [phone] and speak to the GI fellow oncall [...] Recently Administered Medications Times are shown in MVA REACTOR OPERATOR HEAD. Continuous Medication Order 06/02/2024 06/03/2024 06/04/2024 sodium [...] 06/04/2024 documented in this encounter Care Teams Tire Retreader Relationship Specialty Start Date End Date Michelle Delcid MD [address] [place] [address] PCP - General Family Medicine 04/27/22 documented as of this encounter
--- OUTSIDE RECORDS SUMMARY | 2024-06-27 10:32 | XMS_ITS | Encounter Summary ---
Author Organization [facility] Address [address] [place] [address] Phone Care Team Providers Care Solution Sales Senior Executive Name Role Phone Michelle Delcid MD Primary Care Provider +1- [phone] Reason for Visit * Reason Onset Date Comments GI Preprocedure 05/17/2023 Encounter Details Date Type Department Care Team (Late st Contact Info) Description 05/17/2023 Telephone [facility] Gastroenterology [address] [place] [address] Medical Office Building [address], [address] [place] [address] May Shrestha RN GI Preprocedure [...] May Shrestha, RN - 05/17/2023 11:38 AM ICT CUSTOMER SUPPORT OFFICER PROCEDURE Type: EGD Indication: Repeat upper endoscopy [...] ago ENDOCRINE: None PRIOR PROCEDURE ISSUES: None PUBLISHING SYSTEMS ANALYST/: NA IMPLANTS.: None PSYCH/Behavioral Hx: Yes Bipolar, [...] and to contact their ordering MD or Information Technology Officer about bridging medication for procedure. NA [x] Yes - Letter Sent to Ordering Physician/Information Technology Officer Date sent: Hold instructions: GLP Weight Loss Medications No Educated Patient on the need to hold Medication, and to contact their ordering MD or Information Technology Officer about bridging medication for procedure. Y/N: No/NA None [] Yes - Letter Sent to Ordering Physician/Information Technology Officer Hold older Instructions: BLOOD THINNERS/ANTICOAG/ANTIPLATELET (BESIDES ASA) Medication: NONE Physician contacted for hold order/date sent: Hold order Method sent: Date hold received: Hold instructions: CONTINUE ASPIRIN INFORMATION REQUESTED []Imaging: []Medical Progress Note/H&P []Medication list []Other: PATIENT OPTIMIZATION []Physician reviewing escalation: []CPAP: Date scheduled: Outcome : [] Location limitations: Scheduling Scheduling location limitations: Crude Oil Treater needed [x] NA Language: POA [] NA Name: Sarah Dubose Required extended education:no SPECIAL PROCEDURE INSTRUCTIONS Scheduling Notes Procedure information Date of procedure: 06/04/23 Time of procedure: 1130 Arrival time: 1030 Location: [facility] Proceduralist: Ismail Instructions Method of instructions: Mailed Copy and Verbal [x]Confirmation of ride/shrimp pond laborer [x]Post anesthesia restrictions given [x]NPO Instructions: [x]Diet [...] upper endoscopy in 6 months for surveillance CUSTOMER SUPPORT OFFICER CUSTOMER SUPPORT OFFICER documented in this encounter Plan of Treatment Not on file documented as of this encounter Visit Diagnoses Diagnosis Idiopathic esophageal varices without bleeding (CMS/HCC) (HCC)- Primary documented in this encounter Orders Case Request Count Last Ordered Date First Orde red Date CASE REQUEST GI 1 05/17/2023 documented in this encounter Care Teams Solution Sales Senior Executive Relationship Specialty Start Date End Date Michelle Delcid MD [address] [place] [address] PCP - General Family Medicine 04/27/22 documented as of this encounter
--- OUTSIDE RECORDS SUMMARY | 2024-06-27 10:32 | XMS_ITS | Encounter Summary ---
Author Organization [facility] Healthcare Address [address] [place] [address] Care Team Providers Care Preschool Head Teacher Name Role Phone Michelle Delcid MD Primary Care Provider +1- [phone] Reason for Visit * Reason Onset Date Comments GI Preprocedure 05/28/2024 Encounter Details Date Type Department Care Team ([facility] Contact Info) Description 05/28/2024 Telephone [facility] Specialty Services [address] [place] [phone] Guillermina Jade, REJI GI Preprocedure Social History [...] Guillermina Jade RN - 05/28/2024 10:39 AM THIRD SHIFT LIEUTENANT GI PROCEDURE PRE CALL - 7 DAY [...] entire process. [] Patient will need a crew car driver or responsible adult. Since you will [...] and piercing before procedure. Notes/Issues: call: Nidia [phone] if unable to come to appt / and or need to reschedule. D SHIFT LIEUTENANT documented in this encounter Plan of Treatment Not on file documented as of this encounter Visit Diagnoses Not on filedocumented in this encounter Care Teams Preschool Head Teacher Relationship Specialty Start Date End Date Michelle Delcid MD [address] [place] [address] PCP - General Family Medicine 04/27/22 documented as of this encounter
--- OUTSIDE RECORDS SUMMARY | 2024-06-27 10:32 | XMS_ITS | Encounter Summary ---
Author Organization [facility] Healthcare Address [address] [place] [address] Care Team Providers Care Early Childhood Associate Teacher Name Role Phone Michelel Delcid MD Primary Care Provider +1- [phone] Reason for Visit * Auth/Cert (Routine) Specialty Diagnoses / Procedures Referred By Hoang leroy Referred To Contact Diagnoses Idiopathic esophageal varices without bleeding (CMS/HCC) (HCC) Idiopathic esophageal varices without bleeding (CMS/HCC) (HCC) [I85.00] Procedures IN ESOPHAGOGASTRODUODENOSCOPY TRANSORAL DIAGNOSTIC ESOPHAGOGASTRODUODENOSCOPY Referral ID Status Reason Start Date Expiration Date Visits Re quested Visits Authorized [id number] 1 1 Encounter Details Date Type Department Care Team (Latest Contact Info) Description 06/04/2023 10:42 AM THREAD GRINDER - 06/04/2023 2:10 PM [facility] Hospital Encounter [facility] [address] [facility] [address] [place] [address] Melody Lilly MD [address] [facility] [address] [place] [address] Discharge Disposition: Discharge to home or self [...] Comments Blood Pressure 129/102 06/04/2023 1:30 PM THREAD GRINDER Pulse 73 06/04/2023 1:30 PM THREAD GRINDER Temperature 36 ??C (96.8 ??F) 06/04/2023 1:00 PM THREAD GRINDER Respiratory Rate 14 06/04/2023 1:30 PM THREAD GRINDER Oxygen Saturation 98% 06/04/2023 1:30 PM THREAD GRINDER Inhaled Oxygen Concentration - - Weight 108.9 kg (240 lb) 06/04/2023 11:16 AM THREAD GRINDER Height 182.9 cm (6') 06/04/2023 11:16 AM THREAD GRINDER Body Mass Index 32.55 06/04/2023 11:16 AM THREAD GRINDER documented in this encounter Medications at Time [...] planned procedure for the reasons stated above. AD GRINDER documented in this encounter Procedure Notes * Melody Lilly MD - 06/04/2023 12:17 PM CSTAssociated Order(s): EGD GI ENDOSCOPY [facility] Patient Name: [place] Dubose Procedure Date: 06/04/2023 12:17 PM Date of : 1970 Admit Type: Outpatient Age: 52 Gender: Male Attending MD: Melody Lilly M.D. Room: [facility] ENDOSCOPY ROOM 1 Note Status: Finalized [...] following this procedure please call my office [phone]). After hours and evenings please call [phone] and speak to the GI fellow oncall [...] On: 06/04/2023 12:17 PM Recognized by the [employer] for promoting quality in endoscopy AD GRINDER documented in this encounter Plan of Treatment Not on file documented as of this encounter Procedures Procedure Name Priority Date/Time Associated Diagnosis Comments ESOPHAGOGASTRODUODENOSCOPY 06/04 12:38 PM THREAD GRINDER Idiopathic esophageal varices without bleeding (CMS/HCC) (HCC) EGD 06/04/2023 12:17 PM THREAD GRINDER documented in this encounter Results * EGD (06/04/2023 12:17 PM THREAD GRINDER) Anatomical Region Laterality Modality Other Narrative Procedure Note Melody Lilly MD - 06/04/2023 12:17 PM CST GI ENDOSCOPY [facility] Patient Name: [place] Dubose Procedure Date: 06/04/2023 12:17PM Date of : 1970 Admit Type: Outpatient Age: 52 Gender: Male Attending MD: Melody Lilly M.D. Room: [facility] ENDOSCOPY ROOM 1 Note Status: Finalized [...] passed under direct vision. The [id number] [id number] endoscope was introduced through the mouth, and [...] following this procedure please call my office [phone]). After hours and eveningsplease call [phone] and speak to the GI fellow oncall [...] On: 06/04/2023 12:17 PM Recognized by the [employer] for promoting quality [...] at 1145 Rate/Dose Verify 06/04/2023 12:37 PM THREAD GRINDER 30 mL/hr New Bag 06/04/2023 11:22 AM THREAD GRINDER 30 mL/hr 30 mL/hr documented in this encounter Discontinued Medications Medication Sig Discontinue Reason Start Date End Da te pantoprazole DR (PROTONIX) 40 mg EC tablet Take 1 tablet (40 mg total) by mouth daily Stop Taking at Discharge 05/08/2022 06/04/2023 documented as of this encounter Active and Recently Administered Medications Times are shown in THREAD GRINDER. Continuous Medication Order 06/02/2023 06/03/2023 06/04/2023 sodium [...] 06/04/2023 documented in this encounter Care Teams Early Childhood Associate Teacher Relationship Specialty Start Date End Date Michelle Delcid MD [address] [place] [address] PCP - General Family Medicine 04/27/22 documented as of this encounter
--- OUTSIDE RECORDS SUMMARY | 2024-06-27 10:32 | XMS_ITS | Encounter Summary ---
Author Organization [facility] Address [address] [place] [address] Phone Care Team Providers Care Smoke Jumper Name Role Phone Michelle Delcid MD Primary Care Provider +1- [phone] Encounter Details Date Type Department Care Team (Late st Contact Info) Description 05/29/2023 Telephone [facility] Gastroenterology [address] [facility] [address] [place] [address] [place] [address] Bibi Greene RN Social History [...] he comes for his EGD on 06/04 LE MAKER documented in this encounter Plan of Treatment Not on file documented as of this encounter Visit Diagnoses Not on filedocumented in this encounter Care Teams Smoke Jumper Relationship Specialty Start Date End Date Michelle Delcid MD [address] [place] [address] PCP - General Family Medicine 04/27/22 documented as of this encounter
--- OUTSIDE RECORDS SUMMARY | 2024-06-27 10:32 | XMS_ITS | Encounter Summary ---
Author Organization [facility] Address [address] [place] [address] Phone Care Team Providers Care Data Input Clerk Name Role Phone Michelle Delcid MD Primary Care Provider +1- [phone] Reason for Visit * Reason Onset Date Comments Scheduling Testing/Treatment 05/15/2023 Encounter Details Date Type Department Care Team (Late st Contact Info) Description 05/15/[address] [facility] Gastroenterology [address] [place] [address] Medical Office Building [address], [address] [place] [address] May Shrestha, REJI Scheduling Testing/Treatment [...] May Shrestha RN - 05/15/2023 12:32 PM NEONATAL NURSE Attempted to reach the patient to discuss scheduling per below. No Answer, left message. Mailed letter. ----- Message from Yaneth Ramon RN sent at 10/18/2022 11:58 AM CDT ----- Regarding: Repeat upper endoscopy in 6 months for surveillance Ismail (04/2023) Repeat upper endoscopy in 6 months for surveillance ATAL NURSE ATAL NURSE documented in this encounter Plan of Treatment Not on file documented as of this encounter Visit Diagnoses Not on filedocumented in this encounter Care Teams Data Input Clerk Relationship Specialty Start Date End Date Michelle Delcid MD [address] [place] [address] PCP - General Family Medicine 04/27/22 documented as of this encounter
--- OUTSIDE RECORDS SUMMARY | 2024-06-27 10:32 | XMS_ITS | Encounter Summary ---
Author Organization [facility] Healthcare Address [address] [place] [address] Care Team Providers Care Keymodule Assembly Machine Tender Name Role Phone Michelle Delcid MD Primary Care Provider +1- [phone] Reason for Visit * Auth/Cert (Routine) Specialty Diagnoses / Procedures Referred By Hoang t Referred To Contact Diagnoses Esophageal varices without bleeding, unspecified esophageal varices type (HCC) Esophageal varices without bleeding, unspecified esophageal varices type (HCC) [I85.00] Procedures [place] ESOPHAGOGASTRODUODENOSCOPY TRANSORAL DIAGNOSTIC EGD Referral ID Status Reason Start Date Expiration Date Visits Re quested Visits Authorized [id number] 1 1 Encounter Details Date Type Department Care Team ([facility] st Contact Info) Description 06/04/2024 10:34 AM BOILER CONTROL TECHNICIAN Anesthesia Event [facility] Disease [facility] [address] [facility] [address] [place] [address] German Caballero MD [address] [facility] [facility] [address] [place] [address] Anesthesia Record Procedure Summary Procedure Name Responsible [...] Procedure Summary Date: 06/04/24 Room / Location: [facility] ENDOSCOPY ROOM [facility] Anesthesia Start: 1034 Anesthesia Stop: [...] Nausea/Vomiting status: none No notable events documented. ER CONTROL TECHNICIAN * Anesthesia Preprocedure Evaluation - German Caballero [...] Medication protocol when under care of a CROWD CONTROLLER Planned anesthesia: MAC Induction: Induction: intravenous. Postoperative [...] and agree to proceed. All questions answered. ER CONTROL TECHNICIAN ER CONTROL TECHNICIAN documented in this encounter Plan of [...] ArrhythmiasIndications:V entricular Arrhythmias Given 06/04/2024 10:38 AM BOILER CONTROL TECHNICIAN 50 mg propofoL (DIPRIVAN) 10 mg/mL IV intravenous, Continuous PRN, Starting on Sun06/04/24 at 1038, Anesthesia Intra-op New Bag 06/04/2024 10:38 AM BOILER CONTROL TECHNICIAN 150 mcg/kg/min 84.51 mL/hr propofoL (DIPRIVAN) 10 mg/mL IV intravenous, As needed, Starting on Sun06/04/24 at 1038, Anesthesia Intra-op Given 06/04/2024 10:40 AM BOILER CONTROL TECHNICIAN 20 mg Given 06/04/2024 10:38 AM BOILER CONTROL TECHNICIAN 50 mg Given 06/04/2024 10:35 AM BOILER CONTROL TECHNICIAN 50 mg documented in this encounter Care Teams Keymodule Assembly Machine Tender Relationship Specialty Start Date End Date Michelle Delcid MD [address] [place] [address] PCP - General Family Medicine 04/27/22 documented as of this encounter
--- OUTSIDE RECORDS SUMMARY | 2024-06-27 10:32 | XMS_ITS | Encounter Summary ---
Author Organization [facility] Healthcare Address [address] [place] [address] Care Team Providers Care Fixing Carpenter Name Role Phone Michlele Delcid MD Primary Care Provider +1- [phone] Reason for Visit * Reason Onset Date Comments GI Preprocedure 05/30/2024 Encounter Details Date Type Department Care Team ([facility] Contact Info) Description 05/30/2024 Telephone [facility] Specialty Services [address] [place] [phone] Guillermina Jade, REJI GI Preprocedure Social History [...] Guillermina Jade RN - 05/30/2024 2:33 PM INSIDE SALES ASSOCIATE GI PROCEDURE PRE CALL - 3 DAY [...] process. [x] Confirm patient has a truck driver instructor or responsible adult. Since you will be [...] before procedure. Notes/Issues: Instructed to call: Nidia [phone] if unable to come to appt / and or need to reschedule. Sarah states knows instructions, and has no questions at this time. DE SALES ASSOCIATE documented in this encounter Plan of Treatment Not on file documented as of this encounter Visit Diagnoses Not on filedocumented in this encounter Care Teams Fixing Carpenter Relationship Specialty Start Date End Date Michelle Delcid MD [address] [place] [address] PCP - General Family Medicine 04/27/22 documented as of this encounter
--- OUTSIDE RECORDS SUMMARY | 2024-06-27 10:32 | XMS_ITS | Encounter Summary ---
Author Organization [facility] Healthcare Address [address] [place] [address] Care Team Providers Care Tankman Name Role Phone Michelle Delcid MD Primary Care Provider +1- [phone] Reason for Visit * Auth/Cert (Routine) Specialty Diagnoses / Procedures Referred By Hoang t Referred To Contact Diagnoses Esophageal varices without bleeding, unspecified esophageal varices type (HCC) Esophageal varices without bleeding, unspecified esophageal varices type (HCC) [I85.00] Procedures [place] ESOPHAGOGASTRODUODENOSCOPY TRANSORAL DIAGNOSTIC EGD Referral ID Status Reason Start Date Expiration Date Visits Re quested Visits Authorized [id number] 1 1 Encounter Details Date Type Department Care Team (Late st Contact Info) Description 06/04/2024 11:30 AM WAVE SOLDERING MACHINE OPERATOR - 06/04/2024 12:00 PM WAVE SOLDERING MACHINE OPERATOR Surgery [facility] Digestive Disease [place] [address] [facility] [address] [place] [address] Melody Lilly MD [address] [facility] [address] [place] [address] ESOPHAGOGASTRODUODENOSCOPY Surgery Details Date/Time Status Location OR Service Patient Class Case Class Case Type Trauma Case? 06/04/2024 11:30 AM Posted [facility] ENDOSCOPY EUS 09 Gastroenterology Outpatient Elective Panel [...] Comments Blood Pressure 123/67 06/04/2024 11:07 AM WAVE SOLDERING MACHINE OPERATOR Pulse 70 06/04/2024 11:07 AM WAVE SOLDERING MACHINE OPERATOR Temperature 36.4 ??C (97.5 ??F) 06/04/2024 10:[address] Respiratory Rate 25 06/04/2024 11:07 AM WAVE SOLDERING MACHINE OPERATOR Oxygen Saturation 95% 06/04/2024 11:07 AM WAVE SOLDERING MACHINE OPERATOR Inhaled Oxygen Concentration - - Weight 93.9 kg (207 lb) 06/04/2024 10:19 AM WAVE SOLDERING MACHINE OPERATOR Height 182.9 cm (6') 06/04/2024 10:19 AM WAVE SOLDERING MACHINE OPERATOR Body Mass Index 28.07 06/04/2024 10:19 AM WAVE SOLDERING MACHINE OPERATOR documented in this encounter Medications [...] planned procedure for the reasons stated above. SOLDERING MACHINE OPERATOR documented in this encounter Procedure Notes * Melody Lilly MD - 06/04/2024 10:37 AM CSTAssociated Order(s): EGD GI ENDOSCOPY [facility] Patient Name: [place] Dubose Procedure Date: 06/04/2024 10:37 AM Date of : 1970 Admit Type: Outpatient Age: 53 Gender: Male Attending MD: Melody Lilly M.D. Room: [facility] ENDOSCOPY ROOM 9 Note Status: [...] following this procedure please call my office [phone]). After hours and evenings please call [phone] and speak to the GI fellow oncall [...] 0 Note Initiated On: 06/04/2024 10:37 AM SOLDERING MACHINE OPERATOR documented in this encounter Plan of Treatment Not on file documented as of this encounter Procedures Procedure Name Priority Date/Time Associated Diagnosis Comments EGD 06/04/2024 10:37 AM WAVE SOLDERING MACHINE OPERATOR ESOPHAGOGASTRODUODENOSCOPY 06/04 10:35 AM WAVE SOLDERING MACHINE OPERATOR Esophageal varices without bleeding, unspecified esophageal varices type (HCC) documented in this encounter Results * EGD (06/04/2024 10:37 AM WAVE SOLDERING MACHINE OPERATOR) Anatomical Region Laterality Modality Other Narrative Procedure Note Melody Lilly MD - 06/04/2024 10:37 AM CST GI ENDOSCOPY [facility] Patient Name: [place] Dubose Procedure Date: 06/04/2024 10:37AM Date of : 1970 Admit Type: Outpatient Age: 53 Gender: Male Attending MD: Melody Lilly M.D. Room: [facility] ENDOSCOPY ROOM 9 Note Status: [...] following this procedure please call my office [phone]). After hours and eveningsplease call [phone] and speak to the GI fellow oncall [...] Recently Administered Medications Times are shown in WAVE SOLDERING MACHINE OPERATOR. Continuous Medication Order 06/02/2024 06/03/2024 [...] 06/04/2024 documented in this encounter Care Teams Tankman Relationship Specialty Start Date End Date Michelle Delcid MD [address] [place] [address] PCP - General Family Medicine 04/27/22 documented as of this encounter
--- OUTSIDE RECORDS SUMMARY | 2024-06-27 10:32 | XMS_ITS | Encounter Summary ---
Author Organization [facility] Address [address] [place] [address] Phone Care Team Providers Care Mother Tester Name Role Phone Michelle Delcid MD Primary Care Provider +1- [phone] Encounter Details Date Type Department Care Team (Late st Contact Info) Description 03/15/2023 1:40 PM CDT Office Visit [facility] Gastroenterology [address] [facility] Advanced Medicine 12th [place] [address] [place] [address] Romeo Mahoney MD [facility] [address] [place] [address] Alcoholic cirrhosis of liver without ascites (CMS/HCC) [...] Comprehensive metabolic panel CBC without differential Protime-INR Uxvqa-5-Draysrwnyqc, Tumor Marker US Abdomen Limited Esophageal varices [...] documented as of this encounter Results * Azbku-3-Ccszfbwfqri, Tumor Marker (06/04/2023 2:01 PM TOOL LAPPER HAND) alpha Fetoprotein 2.2 <=8.3 ng/mL KENNY RUIZ [...] 2018;57:783-797 Fide Gallardo et al. ??Clin Chem 2014;7970-8306. Current interpretive data was last revised 2022. Blood 06/04/2023 2:01 PM TOOL LAPPER HAND 06/04/2023 2:31 PM TOOL LAPPER HAND us Romeo Mahoney MD LAB BLOOD ORDERABLES F inal Result [facility] [place] [address] * (ABNORMAL) Protime-INR (06/04/2023 2:01 PM TOOL LAPPER HAND) PT 16.1(H) 10.3 - 13.7 sec KENNY RUIZ INR 1.41(H) 0.90 - 1.20 [facility] Comment: Interpretive data Oral anticoagulant therapeutic ranges: Venous thromboembolism prophylaxis or treatment: 2.0-3.0 CARDIOLOGY Standard range: 2.0-3.0 High-intensity range: 2.5-3.5 Refer to indication-specific guidelines for appropriate target ranges for prosthetic heart valve replacement. Current interpretive data was last revised on 2019. Blood 06/04/2023 2:01 PM TOOL LAPPER HAND 06/04/2023 2:31 PM TOOL LAPPER HAND Romoe Mahoney MD LAB BLOOD ORDERABLES F inal Result [facility] [place] [address] * (ABNORMAL) CBC without differential (06/04/2023 2:01 PM TOOL LAPPER HAND) WBC 3.1(L) 3.8 - 9.9 K/cumm [facility] Hgb 13.4 13.0 - 17.5 g/dL [facility] Hct 38.2(L) 38.9 - 50.3 % [facility] Plt 69(L) 150 - 400 K/cumm [facility] MPV 10.0 9.1 - 12.3 fL [facility] RBC 4.09(L) 4.30 - 5.80 M/cumm [facility] MCV 93.4 81.3 - 96.4 fL [facility] MCH 32.8 27.1 - 33.3 pg [facility] MCHC 35.1 32.3 - 35.7 g/dL [facility] RDW CV 14.0 11.1 - 14.9 % [facility] RDW SD 47.5 35.7 - 48.1 fL [facility] NRBC abs 0.00 0.00 - 0.01 K/cumm [facility] Blood 06/04/2023 2:01 PM TOOL LAPPER HAND 06/04/2023 2:31 PM TOOL LAPPER HAND Romeo Mahoney MD LAB BLOOD ORDERABLES F inal Result [facility] [place] [address] * (ABNORMAL) Comprehensive metabolic panel (06/04/2023 2:01 PM TOOL LAPPER HAND) Sodium 143 135 - 145 mmol/L [facility] Potassium, pl 4.0 3.3 - 4.9 mmol/L [facility] Chloride 110 97 - 110 mmol/L [facility] CO2 24 22 - 32 mmol/L [facility] Anion gap 9 2 - 15 mmol/L [facility] BUN 6 6 - 25 mg/dL [facility] Creatinine 0.72(L) 0.80 - 1.30 mg/dL [facility] Glucose 167 70 - 199 mg/dL [facility] Comment: Interpretive Data Fasting [...] 2022. Calcium 8.4(L) 8.5 - 10.3 mg/dL [facility] Bilirubin, total 1.1 0.1 - 1.2 mg/dL [facility] Protein, pl 7.1 6.5 - 8.5 g/dL [facility] Albumin 3.8 3.5 - 5.0 g/dL [facility] Alk phos 136(H) 40 - 130 Units/L [facility] ALT 40 7 - 55 Units/L [facility] AST 64(H) 10 - 50 Units/L [facility] Blood 06/04/2023 2:01 PM TOOL LAPPER HAND 06/04/2023 2:31 PM TOOL LAPPER HAND Romeo Mahoney MD LAB BLOOD ORDERABLES F inal Result [facility] [place] [address] documented in this encounter Visit Diagnoses Diagnosis [...] day added in this encounter Care Teams Mother Tester Relationship Specialty Start Date End Date Michelle Delcid MD [address] [place] [address] PCP - General Family Medicine 04/27/22 documented as of this encounter
--- OUTSIDE RECORDS SUMMARY | 2024-06-27 10:32 | XMS_ITS | Encounter Summary ---
Author Organization [facility] Address [address] [place] [address] Phone Care Team Providers Care Head Of Merchandise Buying Name Role Phone Michelle Delcid MD Primary Care Provider +1- [phone] Reason for Visit * Reason Onset Date Comments Test Results 05/08/2022 Encounter Details Date Type Department Care Team (Late st Contact Info) Description 05/08/2022 Telephone [facility] Gastroenterology [address] [place] [address] Medical Office [address], [address] [place] [address] May Shrestha, REJI Test Results [...] May Shrestha RN - 05/08/2022 1:48 PM OBSERVATION NURSE Called patients sister/ POA to discuss pathology results and MD recommendations at this time. POA verbalized understanding of these recommendations and has no further questions or concerns at this time. PPI rx sent to [place] [facility], [facility] per POA request. Reminder set for rpt EGD. ----- Message from Melody Lilly MD sent at 05/08/2022 8:40 AM OBSERVATION NURSE ----- Please call patient and notify biopsy results being benign. No H pylori noted, repeat EGD in 6 months RVATION NURSE RVATION NURSE documented in this encounter Plan of Treatment Not on file documented as of this encounter Visit Diagnoses Not on filedocumented in this encounter Care Teams Head Of Merchandise Buying Relationship Specialty Start Date End Date Michelle Delcid MD [address] [place] [address] PCP - General Family Medicine 04/27/22 documented as of this encounter
--- OUTSIDE RECORDS SUMMARY | 2024-06-27 10:32 | XMS_ITS | Encounter Summary ---
Author Organization [facility] Address [address] [place] [address] Phone Care Team Providers Care Project Buyer Name Role Phone Michelle Delcid MD Primary Care Provider +1- [phone] Reason for Visit * Reason Onset Date Comments call back 10/16/2022 Encounter Details Date Type Department Care Team (Late st Contact Info) Description 10/16/2022 Telephone [facility] Gastroenterology [address] [place] [address] Medical Office [address], [address] [place] [address] Yaneth Ramon, RN call back [...] on filedocumented in this encounter Care Teams Project Buyer Relationship Specialty Start Date End Date Michelle Delcid MD [address] [place] [address] PCP - General Family Medicine 04/27/22 documented as of this encounter
--- OUTSIDE RECORDS SUMMARY | 2024-06-27 10:32 | XMS_ITS | Encounter Summary ---
Author Organization [facility] Address [address] [place] [address] Phone Care Team Providers Care Director Sterile Processing Name Role Phone Michelle Delcid MD Primary Care Provider +1- [phone] Encounter Details Date Type Department Care Team (Late st Contact Info) Description 05/29/2023 Orders Only [facility] Gastroenterology [address] [facility] 12th [place] [address] [place] [address] Bibi Greene RN Social History [...] on filedocumented in this encounter Care Teams Director Sterile Processing Relationship Specialty Start Date End Date Michelle Delcid MD [address] [place] [address] PCP - General Family Medicine 04/27/22 documented as of this encounter
--- OUTSIDE RECORDS SUMMARY | 2024-06-27 10:33 | XMS_ITS | Encounter Summary ---
Author Organization [facility] Address [address] [place] [address] Phone Care Team Providers Care Manager Of Marketing Name Role Phone Unavailable Primary Care Provider Unavailabl e Reason for Referral * Diagnostic Imaging (Routine) - Closed Specialty Diagnoses / Procedures Referred By Hoang t Referred To Contact Diagnoses Alcoholic cirrhosis of liver with ascites (CMS/HCC) (HCC) Procedures US Abdomen Limited Romeo Mahoney MD [address] [facility] [address] [place] [address] Phone: tel: fax: [address] [address] Referral ID Status Reason Start Date Expiration Date Visits Re quested Visits Authorized [id number] Closed 01/13/2021 02/12/2022 1 1 Reason for Visit * Reason Onset Date Comments Schedule Ultrasound 01/11/2021 Encounter Details Date Type Department Care Team (Late st Contact Info) Description 01/11/2021 Telephone [facility] Gastroenterology [address] [place] [address] Medicine 8th [place] [address] [place] [address] Henrietta Thomas Schedule Ultrasound Social [...] with Chester and have him scheduled at [facility] in [place] on 02-04-2021 10:00 am/9:45 am arrival.He is aware to fast for this exam. I am also mailing him an appt reminder. * Telephone Encounter - Henrietta Thomas - 01/11/2021 12:47 PM CDT I called Chester at [phone], I was unable to reach him. I LMOR for a return call. ----- Message from Bibi Greene RN sent at 07/06/2020 10:57 PM EGG AND SPICE MIXER ----- Regarding: ultrasound of liver in December [facility] patient needs ultrasound of liver in December. [...] D: ??02/04/2021 2:25 PM T: Report ID: [id number] Reading Location: ??[id number] Procedure Note Josep Nassar MD - 02/04/2021 [...] Josep Nassar M.D. AT T: Report ID: [id number] Reading Location: [place] [address] Romeo Mahonye MD IMG US PROCEDURES Jasmin l Result [...]
--- OUTSIDE RECORDS SUMMARY | 2024-06-27 10:33 | XMS_ITS | Encounter Summary ---
Author Organization [facility] Address [address] [place] [address] Phone Care Team Providers Care Timber Killer Name Role Phone Unavailable Primary Care Provider [...]
--- OUTSIDE RECORDS SUMMARY | 2024-06-27 10:33 | XMS_ITS | Encounter Summary ---
Author Organization [facility] Address [address] [place] [address] Phone Care Team Providers Care Peoplesoft Name Role Phone No, Physician Primary Care Provider Reason for Visit * Consultation (Routine) - Closed Specialty Diagnoses / Procedures Referred By Hoang leroy Referred To Contact Gastroenterology Diagnoses Alcoholic fatty liver Keron Wilson MD [address] [address] Phone: tel: fax: [facility] (All Locations) Referral ID Status Reason Start Date Expiration Date V isits Requested Visits Authorized [id number] Closed Specialty Services Required 01/13/2020 09/15/2020 1 1 Encounter Details Date Type Department Care Team (Late st Contact Info) Description 04/08/2020 3:30 PM CDT Office Visit [facility] Gastroenterology [address] [facility] Advanced Medicine 8th [place] [address] [place] [address] Romeo Mahoney MD [address] [facility] [address] [place] [address] Alcoholic cirrhosis of liver with ascites (CMS/HCC) [...] with a variceal bleed and admitted to [facility] where he underwent banding. HCV appears to have been diagnosed and treated in 2013 with last RNA level check in 11/2019 which was undetectable. He continued drinking alcohol until most recent hospitalization in 12/2019 for EtOH detox and cirrhosis at [facility]. He has never seen a animal therapist as an outpatient. Today, he reports he [...] file Gets together: Not on file Attends orthodoxy service: Not on file Active member of [...] on file Social History Narrative B/R in [place], [place] but family moved frequently throughout his [...] HCC screening q 6 months. Relevant Orders Xmiah-2-Ptfeuzasctt, Tumor Marker (Completed) Protime-INR (Completed) CBC without [...] CDT) Sodium 139 135 - 145 mmol/L [facility] Potassium, pl 4.0 3.3 - 4.9 mmol/L [facility] Chloride 104 97 - 110 mmol/L [facility] CO2 25 22 - 32 mmol/L [facility] Anion gap 10 2 - 15 mmol/L [facility] BUN 7(L) 8 - 25 mg/dL [facility] Creatinine 0.83 0.80 - 1.30 mg/dL [facility] Glucose 116 70 - 199 mg/dL [facility] Comment: Interpretive Data Fasting glucose >/= [...] 2017. Calcium 9.2 8.5 - 10.3 mg/dL [facility] Bilirubin, total 2.3(H) 0.1 - 1.2 mg/dL [facility] Protein, pl 7.8 6.5 - 8.5 g/dL [facility] Albumin 3.3(L) 3.5 - 5.0 g/dL [facility] Alk phos 155(H) 40 - 130 Units/L [facility] ALT 26 7 - 55 Units/L [facility] AST 63(H) 10 - 50 Units/L [facility] Blood specimen (specimen) 04/08/2020 4:48 PM CDT 04/08/2020 5:01 PM CDT us Romeo Mahoney MD LAB BLOOD ORDERABLES F inal Result [facility] One [facility] Department [place] [address] * (ABNORMAL) CBC without differential (04/08/2020 4:48 PM CDT) [facility] WBC 5.0 3.8 - 9.9 K/cumm [facility] Hgb 11.5(L) 13.0 - 17.5 g/dL [facility] Hct 36.5(L) 38.9 - 50.3 % [facility] Plt 111(L) 150 - 400 K/cumm [facility] MPV 10.3 9.1 - 12.3 fL [facility] RBC 3.97(L) 4.30 - 5.80 M/cumm [facility] MCV 91.9 81.3 - 96.4 fL [facility] MCH 29.0 27.1 - 33.3 pg [facility] MCHC 31.5(L) 32.3 - 35.7 g/dL [facility] RDW CV 16.2(H) 11.1 - 14.9 % [facility] RDW SD 54.6(H) 35.7 - 48.1 fL [facility] NRBC abs 0.00 0.00 - 0.01 K/cumm [facility] Blood specimen (specimen) 04/08/2020 4:48 PM CDT 04/08/2020 5:01 PM CDT Romeo Mahoney MD LAB BLOOD ORDERABLES F inal Result [facility] Department [place] [address] * (ABNORMAL) Protime-INR (04/08/2020 4:48 PM CDT) [facility] PT 18.8(H) 8.6 - 13.0 sec [facility] INR 1.7(H) 0.8 - 1.2 [facility] Comment: Interpretive data Oral anticoagulant therapeutic [...] ORDERABLES F inal Result Performing Organization Address [facility] Co de Phone Number [facility] [place] [place] [address] * Twqrt-6-Qwieulenzwj, Tumor Marker (04/08/2020 4:48 PM CDT) alpha Fetoprotein 3.7 <=8.3 ng/mL [facility] Blood specimen (specimen) 04/08/2020 4:48 PM CDT 04/08/2020 5:01 PM CDT Romeo Mahoney MD LAB BLOOD ORDERABLES F inal Result Performing Organization Address [facility] de Phone Number [facility] [place] [place] [address] documented in this encounter Visit Diagnoses Diagnosis [...] documented as of this encounter Care Teams Peoplesoft Relationship Specialty Start Date End Date No, Physician PCP - General 04/08/20 05/26/20 documented as of this encounter
--- OUTSIDE RECORDS SUMMARY | 2024-06-27 10:33 | XMS_ITS | Encounter Summary ---
Author Organization [facility] Address [address] [facility] [address] [place] [address] Care Team Providers Care Order Fulfillment Specialist Name Role Phone Unavailable Primary Care Provider Unavailabl e Reason for Referral * Diagnostic Imaging (Routine) - Closed Specialty Diagnoses / Procedures Referred By Contac t Referred To Contact Diagnoses Chronic right shoulder pain Procedures XR Shoulder Right 2 or More Views Emir Crawford MD [address] [place] [address] Phone: tel: fax: [address] [address] Referral ID Status Reason Start Date Expiration Date Visits Re quested Visits Authorized [id number] Closed 05/27/2020 06/26/2021 1 1 M AND GAS TURBINES ASSEMBLER Reason for Visit * Reason Comments Establish [...] (Latest Contact Info) Description 05/27/2020 1:30 PM STEAM AND GAS TURBINES ASSEMBLER Office Visit [facility] Medical [facility] Primary Care [address] [place] [address] Emir Crawford MD [address] [place] [address] Alcoholic cirrhosis of liver with ascites (CMS/HCC) [...] Comments Blood Pressure 120/84 05/27/2020 1:49 PM STEAM AND GAS TURBINES ASSEMBLER Pulse 78 05/27/2020 1:49 PM STEAM AND GAS TURBINES ASSEMBLER Temperature 35.9 ??C (96.6 ??F) 05/27/2020 1:49 PM CS T Respiratory Rate 16 05/27/2020 1:49 PM STEAM AND GAS TURBINES ASSEMBLER Oxygen Saturation 99% 05/27/2020 1:49 PM STEAM AND GAS TURBINES ASSEMBLER Inhaled Oxygen Concentration - - Weight 83.8 kg (184 lb 11.2 oz) 05/27/2020 1:49 PM STEAM AND GAS TURBINES ASSEMBLER Height 182.9 cm (6') 05/27/2020 1:49 PM STEAM AND GAS TURBINES ASSEMBLER Body Mass Index 25.05 05/27/2020 1:49 PM STEAM AND GAS TURBINES ASSEMBLER documented in this encounter Progress Notes * [...] person, place, and time. Emir Crawford MD M AND GAS TURBINES ASSEMBLER documented in this encounter Miscellaneous Notes * Assessment & Plan Note - Emir Crawford MD - 05/27/2020 2:28 PM STEAM AND GAS TURBINES ASSEMBLER Associated Problem(s): Chronic right shoulder pain Will start with checking an x-ray of right shoulder M AND GAS TURBINES ASSEMBLER * Assessment & Plan Note - Emir Crawford MD - 05/25/2020 1:34 PM STEAM AND GAS TURBINES ASSEMBLER Associated Problem(s): Hypertension Stable on metoprolol and amlodipine M AND GAS TURBINES ASSEMBLER * Assessment & Plan Note - Emir Crawford MD - 05/25/2020 1:34 PM STEAM AND GAS TURBINES ASSEMBLER Associated Problem(s): History of hepatitis C virus infection Currently undetectable M AND GAS TURBINES ASSEMBLER * Assessment & Plan Note - Emir Crawford MD - 05/25/2020 1:32 PM STEAM AND GAS TURBINES ASSEMBLER Associated Problem(s): Hepatic encephalopathy (HCC) Stable on Xifaxan and lactulose M AND GAS TURBINES ASSEMBLER M AND GAS TURBINES ASSEMBLER * Assessment & Plan Note - Emir Crawford MD - 05/25/2020 1:30 PM STEAM AND GAS TURBINES ASSEMBLER Associated Problem(s): Esophageal varices (HCC) Status post banding. Due for repeat EGD by Dr. Douglas. M AND GAS TURBINES ASSEMBLER M AND GAS TURBINES ASSEMBLER * Assessment & Plan Note - Emir Crawford MD - 05/25/2020 1:29 PM STEAM AND GAS TURBINES ASSEMBLER Associated Problem(s): Alcoholic cirrhosis of liver without ascites (CMS/HCC) (HCC) Stable. Currently being followed by Dr. Mahoney M AND GAS TURBINES ASSEMBLER documented in this encounter Plan of Treatment Not on file documented as of this encounter Results * XR Shoulder Right 2 or More Views (06/03/2020 3:43 PM STEAM AND GAS TURBINES ASSEMBLER) Anatomical Region Laterality Modality Upper Extremities, Shoulder Right Radi ographic Imaging 06/04/2020 12:3 8 PM STEAM AND GAS TURBINES ASSEMBLER Narrative 06/04/2020 12:40 PM STEAM AND GAS TURBINES ASSEMBLER Patient Name: CHESTER BRUMFIELD JR ?Ordering Dr: Emir Crawford MD ?? D.O.B: 1970 ? Exam Date: 06/03/20 ?? 1543 ?? Age: 49 ?Sex: Male ? MR#: [id number] ?? Loc: ? RADIOLOGY REPORT ?? Order #[id number] ?? Radiology ? Shoulder RT 2Vw Min [...] 12:40 PM ?? T: ? Report ID: [id number] ?? Reading Location: ??[id number] ? REPORT ELECTRONICALLY SIGNED IN OTHER VENDOR SYSTEM ?? Resulting Agency Comment O Procedure Note Kenyon Mullen MD - 06/04/2020 Patient Name: CHESTER BRUMFIELD Dr: Emir Crawford MD D.O.B: 1970 Exam Date: 06/03/20 1543 Age: 49 Sex: Male MR#: [id number] Loc: RADIOLOGY REPORT Order #[id number] Radiology Shoulder RT 2Vw Min (STANDARD) Signed [...] Kenyon Mullen M.D. MJ T: Report ID: [id number] Reading Location: [place] [address] REPORT ELECTRONICALLY SIGNED IN OTHER VENDOR SYSTEM [...]
--- OUTSIDE RECORDS SUMMARY | 2024-06-27 10:33 | XMS_ITS | Encounter Summary ---
Author Organization [facility] Healthcare Address [address] [place] [address] Care Team Providers Care Wine Manager Name Role Phone Michelle Delcid MD Primary Care Provider +1- [phone] Reason for Visit * Auth/Cert Specialty Diagnoses / Procedures Referred By Hoang t Referred To Contact Diagnoses Hepatic cirrhosis, unspecified hepatic cirrhosis type, unspecified whether ascites present (HCC) Hepatic cirrhosis, unspecified hepatic cirrhosis type, unspecified whether ascites present (HCC) [K74.60] Procedures MT EGD BAND LIGATION ESOPHGEAL/GASTRIC VARICES ESOPHAGOGASTRODUODENOSCOPY Referral ID Status Reason Start Date Expiration Date Visits Re quested Visits Authorized [id number] 1 1 Encounter Details Date Type Department Care Team (Late st Contact Info) Description 05/04/2022 9:26 AM GEAR TESTER Anesthesia Event [facility] [place] [address] [facility] [address] [place] [address] Romel Ferris MD [address] [facility] [address] MSC [phone] [place] [address] Michael Hogue MD [address] [facility] [address] [place] [address] Anesthesia Record Procedure Summary Procedure Name Responsible [...] Procedure Summary Date: 05/04/22 Room / Location: [facility]OM 2 / [facility] Anesthesia Start: 925 Anesthesia Stop: 952 [...] Nausea/Vomiting status: none No notable events documented. TESTER * Anesthesia Preprocedure Evaluation - Michael Hogue [...] Medication protocol when under care of a BAR SUPERVISOR Planned anesthesia: MAC Informed Consent: Anesthesia plan [...] and agree to proceed. All questions answered. TESTER documented in this encounter Plan of [...] ArrhythmiasIndications :Ventricular Arrhythmias Given 05/04/2022 9:35 AM GEAR TESTER 60 mg propofoL (DIPRIVAN) 10 mg/mL IV intravenous, As needed, Starting on Mendy 05/04/22 at 0935, Anesthesia Intra-op Given 05/04/2022 9:35 AM GEAR TESTER 100 mg propofoL (DIPRIVAN) 10 mg/mL IV intravenous, Continuous PRN, Starting on Mendy 05/04/22 at 0935, Anesthesia Intra-op New Bag 05/04/2022 9:35 AM GEAR TESTER 120 mcg/kg/min 68.616 mL/hr sodium chloride 0.9% infusion 30 mL/hr, intravenous, Continuous, Starting on Mendy 05/04/22 at 0915, Pre-Procedure (GI) Rate/Dose Verify 05/04/2022 9:26 AM GEAR TESTER 30 mL/hr New Bag 05/04/2022 8:44 AM GEAR TESTER 30 mL/hr 30 mL/hr documented in this encounter Care Teams Wine Manager Relationship Specialty Start Date End Date Michelle Delcid MD [address] [place] [address] PCP - General Family Medicine 04/27/22 documented as of this encounter
--- OUTSIDE RECORDS SUMMARY | 2024-06-27 10:33 | XMS_ITS | Encounter Summary ---
Author Organization [facility] Address [address] [place] [address] Phone Care Team Providers Care Director Multiple Sclerosis [facility] Name Role Phone Unavailable Primary Care Provider Unavailabl e Encounter Details Date Type Department Care Team (Late st Contact Info) Description 10/08/2020 Telephone [facility] Gastroenterology [address] [facility] 8th [place] [address] [place] [address] Bibi Greene, RN Social History Tobacco Use [...]
--- OUTSIDE RECORDS SUMMARY | 2024-06-27 10:33 | XMS_ITS | Encounter Summary ---
Author Organization [facility] Address [address] [place] [address] Phone Care Team Providers Care Electric Sign Wirer Name Role Phone Unavailable Primary Care Provider Unavailabl e Encounter Details Date Type Department Care Team (Late st Contact Info) Description 09/17/2020 Orders Only [facility] Gastroenterology [address] [facility] 8th [place] [address] [place] [phone] Bibi Greene, REJI Hepatic encephalopathy (CMS/HCC) Social [...]
--- OUTSIDE RECORDS SUMMARY | 2024-06-27 10:33 | XMS_ITS | Encounter Summary ---
Author Organization [facility] Address [address] [address] Care Team Providers Care Printing Machine Operator Tape Rules Name Role Phone Unavailable Primary Care Provider Unavailabl e Reason for Visit * Reason Onset Date Comments Test results and referral 06/04/2020 Encounter Details Date Type Department Care Team ([facility] Contact Info) Description 06/04/2020 Telephone [facility] Primary Care [address] [place] [address] Emir Crawford MD [address] [place] [address] Test results and referral Social [...] of test results. Referral sent to Ortho. CUTTER * Telephone Encounter - Kylee Demarco MA - 06/04/2020 1:47 PM CST ----- Message from Emir Crawford MD sent at 06/04/2020 1:00 PM LENS CUTTER ----- No osseous abnormality right shoulder. Would refer to Dr. Birch for evaluation. 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
--- OUTSIDE RECORDS SUMMARY | 2024-06-27 10:33 | XMS_ITS | Encounter Summary ---
Author Organization [facility] Address [address] [place] [address] Phone Care Team Providers Care Speech Therapist Name Role Phone LarryGriselda lawson Chika DATA COLLECTION SPECIALIST Primary Care Provide r Encounter Details Date Type Department Care Team (Late st Contact Info) Description 03/31/2020 Orders Only [facility] Gastroenterology [address] [facility] 8th [place] [address] [place] [phone] Celia Salazar RMA Social History Tobacco Use [...] documented as of this encounter Care Teams Speech Therapist Relationship Specialty Start Date End Date Griselda Juarez NP PCP - General Nurse Practitioner 01/07/20 04/07/20 documented as of this encounter
--- OUTSIDE RECORDS SUMMARY | 2024-06-27 10:33 | XMS_ITS | Encounter Summary ---
Author Organization [facility] Address [address] [place] [address] Phone Care Team Providers Care Board Turner Name Role Phone Unavailable Primary Care Provider Unavailabl e Encounter Details Date Type Department Care Team (Late st Contact Info) Description 09/20/2021 Orders Only [facility] Gastroenterology [address] [facility] 8th [place] [address] [place] [phone] Bibi Greene, REJI Social History Tobacco Use [...]
--- OUTSIDE RECORDS SUMMARY | 2024-06-27 10:33 | XMS_ITS | Encounter Summary ---
Author Organization [facility] Address [address] [place] [address] Phone Care Team Providers Care Data Entry Manager Name Role Phone Referring, Unknown MD Primary Care Provider Unav ailable Encounter Details Date Type Department Care Team (Late st Contact Info) Description 04/14/2022 Telephone [facility] Gastroenterology [address] [facility] 12th [place] [address] [place] [address] Henrietta Ivey Social History Tobacco [...] -2021 ENDOCRINE: None PRIOR PROCEDURE ISSUES: None IMPLEMENTATION SPECIALIST PAYROLL/: NA IMPLANTS.: None Notes: DIABETIC MEDS Y/N: [...] [] Location limitations: Scheduling Scheduling location limitations: Computer Systems Administrator needed [] NA Language: POA [x] NA Name: SPECIAL PROCEDURE INSTRUCTIONS Scheduling Notes Procedure information Date of procedure: Time of procedure: Arrival time: Location: Proceduralist: Instructions Method of instructions: Mailed copy and Verbal [x]Confirmation of ride/fur finisher seamstress [x]Post anesthesia restrictions given [x]NPO Instructions: [x]Diet Instructions: [x]Take non-blood thinner prescription meds that morning [x]Bring med list, photo ID, insurance card, no valuables [x]Bring COVID vaccination card (if vaccinated) Bowel Prep Prep prescribed: NA Method of Bowel Prep (RX): NA ----- Message from Bibi Greene RN sent at 04/03/2022 8:46 AM CDT ----- Regarding: follow up egd [facility] [place] needs egd. Low plts and previous [...] 04/14/2022 documented in this encounter Care Teams Data Entry Manager Relationship Specialty Start Date End Date Referring, Unknown, PCP - General Pediatrics 03/19/22 04/26/22 documented as of this encounter
--- OUTSIDE RECORDS SUMMARY | 2024-06-27 10:33 | XMS_ITS | Encounter Summary ---
Author Organization [facility] Address [address] [place] [address] Phone Care Team Providers Care Management Lead Name Role Phone Unavailable Primary Care Provider Unavailabl e Reason for Visit * Reason Onset Date Comments Imaging 07/21/2021 Encounter Details Date Type Department Care Team (Late st Contact Info) Description 07/21/2021 Telephone [facility] Gastroenterology [facility] 8th [place] [address] [place] [address] Henrietta Thomas Imaging Social History Tobacco Use [...] Mahoney MD sent at 07/21/2021 11:37 AM FABRIC WORKER SUPERVISOR ----- Regarding: RE: ultrasound of liver in Jul Definitely.. ----- Message ----- From: Henrietta Thomas Sent: 07/21/2021 10:32 AM FABRIC WORKER SUPERVISOR To: Romeo Mahoney MD Subject: FW: ultrasound of liver in Jul He Just had a CT scan in March, to move liver US out to September for HCC screen? ----- Message ----- From: Bibi Greene RN Sent: 07/19/2021 12:00 AM FABRIC WORKER SUPERVISOR To: Nayan Mahoney/Balbir Holley Subject: ultrasound of liver in Jul [facility] patient needs an ultrasound of the liver in jul. HCC screen. IC WORKER SUPERVISOR IC WORKER SUPERVISOR documented in this encounter Plan of Treatment Not on file documented as of this encounter Visit Diagnoses Not on filedocumented in this encounter
--- OUTSIDE RECORDS SUMMARY | 2024-06-27 10:33 | XMS_ITS | Encounter Summary ---
Author Organization [facility] Address [address] [place] [address] Care Team Providers Care News Camera Person Name Role Phone Unavailable Primary Care Provider Unavailabl e Reason for Referral * Diagnostic Imaging (Routine) - Closed Specialty Diagnoses / Procedures Referred By Contac t Referred To Contact Diagnoses SOB (shortness of breath) Generalized abdominal discomfort Procedures US Abdomen Limited Romeo Mahoney MD [address] [phone] Phone: tel: fax: [address] [address] Referral ID Status Reason Start Date Expiration Date Visits Re quested Visits Authorized [id number] Closed 09/28/2020 10/28/2021 1 1 Encounter Details Date Type Department Care Team (Late st Contact Info) Description 10/07/2020 11:59 AM CDT Hospital Encounter [facility] INTERIM Romeo Mahoney MD [address] [id number] SOB (shortness of breath); Generalized abdominal discomfort [...] ?? Age: 50 ?Sex: Male ? MR#: [id number] ?? Loc: ? RADIOLOGY REPORT ?? Order #[id number] ?? Ultrasound ? US Abdomen/Lmt Exam Spec [...] 12:23 PM ?? T: ? Report ID: [id number] ?? Reading Location: ??[id number] ? REPORT ELECTRONICALLY SIGNED IN OTHER VENDOR SYSTEM ?? Resulting Agency Comment O Procedure Note Javier Wilkes MD - 10/07/2020 Patient Name: OCTAVIANOCHESTERDIRK Chowdhury Dr: Romeo Mahoney MD D.O.B: 1970 Exam Date: 10/07/20 1202 Age: 50 Sex: Male MR#: [id number] [id number] Order #[id number] Ultrasound US Abdomen/Lmt Exam Spec Organ Signed [...] Javier Wilkes M.D. AB T: Report ID: [id number] Reading Location: [id number] REPORT ELECTRONICALLY SIGNED IN OTHER VENDOR SYSTEM [...]
--- OUTSIDE RECORDS SUMMARY | 2024-06-27 10:33 | XMS_ITS | Encounter Summary ---
Author Organization [facility] Address [address] [place] [address] Phone Care Team Providers Care Supervisor Pipeline Maintenance Name Role Phone Unavailable Primary Care Provider Unavailabl e Reason for Referral * Diagnostic Imaging (Routine) - Closed Specialty Diagnoses / Procedures Referred By Contac t Referred To Contact Diagnoses Alcoholic cirrhosis of liver with ascites (CMS/HCC) (HCC) Procedures US Abdomen Limited Romeo Mahoney MD 1 [facility] [address] [place] [address] Phone: tel: fax: [facility] [address] [place] [address] Referral ID Status Reason Start Date Expiration Date Visits Re quested Visits Authorized [id number] Closed 03/02/2022 04/01/2023 1 1 Reason for Visit * Consultation (Routine) - Closed Specialty Diagnoses / Procedures Referred By Contac t Referred To Contact Gastroenterology Diagnoses Generalized abdominal discomfort Emir Crawford MD [address] [place] [address] Phone: tel: fax: [facility] (All Locations) Referral ID Status Reason Start Date Expiration Date V isits Requested Visits Authorized [id number] Closed Specialty Services Required 02/15/2022 03/17/2023 30 30 Encounter Details Date Type Department Care Team (Late st Contact Info) Description 03/02/2022 4:20 PM CDT Office Visit [facility] Gastroenterology [address] [facility] 12th [place] [address] [place] [address] Romeo Mahoney MD [address] [facility] [address] [place] [address] Alcoholic cirrhosis of liver with ascites (CMS/HCC) [...] and alcohol free and living in a fpc. He was accompanied on today's visit by [...] IMG US PROCEDURES Jasmin l Result * Fpezc-[id number], Tumor Marker (03/02/2022 5:19 PM CDT) alpha [...] 2018;57:[id number] Fidenuris Gallardo et al. ??Clin Chem 2014;[id number]. Current interpretive data was last revised 2022. Blood 03/02/2022 5:19 PM CDT 03/02/2022 6:08 PM CDT Romeo Mahoney MD LAB BLOOD ORDERABLES F inal Result [facility] One [facility] Department [place] [address] * (ABNORMAL) Protime-INR (03/02/2022 5:19 PM CDT) [...] ORDERABLES F inal Result Performing Organization Address [facility] Co de Phone Number [facility] [place] [address] * (ABNORMAL) CBC without differential (03/02/2022 5:19 PM CDT) WBC 4.7 3.8 - 9.9 K/cumm [facility] Hgb 13.0 13.0 - 17.5 g/dL [facility] Hct 37.6(L) 38.9 - 50.3 % [facility] Plt 80(L) 150 - 400 K/cumm [facility] MPV 10.2 9.1 - 12.3 fL [facility] RBC 4.11(L) 4.30 - 5.80 M/cumm [facility] MCV 91.5 81.3 - 96.4 fL [facility] MCH 31.6 27.1 - 33.3 pg [facility] MCHC 34.6 32.3 - 35.7 g/dL [facility] RDW CV 14.6 11.1 - 14.9 % [facility] RDW SD 48.4(H) 35.7 - 48.1 fL [facility] NRBC abs 0.00 0.00 - 0.01 K/cumm [facility] Blood 03/02/2022 5:19 PM CDT 03/02/2022 6:08 PM CDT Romeo Mahoney MD LAB BLOOD ORDERABLES F inal Result Performing Organization Address [facility]/ZIP Co de Phone Number [facility] [place] [address] * (ABNORMAL) Comprehensive metabolic panel (03/02/2022 5:19 PM CDT) Sodium 142 135 - 145 mmol/L [facility] Potassium, pl 4.0 3.3 - 4.9 mmol/L [facility] Chloride 110 97 - 110 mmol/L [facility] CO2 26 22 - 32 mmol/L [facility] Anion gap 6 2 - 15 mmol/L [facility] BUN 8 8 - 25 mg/dL [facility] Creatinine 0.69(L) 0.80 - 1.30 mg/dL [facility] Glucose 111 70 - 199 mg/dL [facility] Comment: Interpretive Data Fasting glucose >/= [...] 2017. Calcium 8.9 8.5 - 10.3 mg/dL [facility] Bilirubin, total 0.6 0.1 - 1.2 mg/dL [facility] Protein, pl 6.9 6.5 - 8.5 g/dL [facility] Albumin 3.6 3.5 - 5.0 g/dL [facility] Alk phos 166(H) 40 - 130 Units/L [facility] ALT 20 7 - 55 Units/L [facility] AST 42 10 - 50 Units/L [facility] Blood 03/02/2022 5:19 PM CDT 03/02/2022 6:08 PM CDT us Romeo Mahoney MD LAB BLOOD ORDERABLES F inal Result [facility] [address] [facility] Department [place] [address] documented in this encounter Visit Diagnoses Diagnosis [...]
--- OUTSIDE RECORDS SUMMARY | 2024-06-27 10:33 | XMS_ITS | Encounter Summary ---
Author Organization [facility] Address [address] [place] [address] Care Team Providers Care Cable Assembler Name Role Phone Unavailable Primary Care Provider Unavailabl e Encounter Details Date Type Department Care Team (Late st Contact Info) Description 03/02/2022 5:25 PM CDT Lab [facility] Advanced Medicine [facility] ([facility] [address] [place] [phone] Alcoholic cirrhosis of liver with ascites (CMS/HCC) [...] cirrhosis of liver with ascites (CMS/HCC) (HCC) [id number], TUMOR MARKER Routine 03/02/2022 5:19 PM CDT [...] 90 - 130 mL/min/1. 73 m2 [facility] Comment: Interpretive Data Reference Interval Normal [...] MD LAB BLOOD ORDERABLES F inal Result [facility] One [facility] [place] [address] * (ABNORMAL) Comprehensive metabolic panel (03/02/2022 5:19 PM CDT) Sodium 142 135 - 145 mmol/L [facility] Potassium, pl 4.0 3.3 - 4.9 mmol/L [facility] Chloride 110 97 - 110 mmol/L [facility] CO2 26 22 - 32 mmol/L [facility] Anion gap 6 2 - 15 mmol/L [facility] BUN 8 8 - 25 mg/dL [facility] Creatinine 0.69(L) 0.80 - 1.30 mg/dL [facility] Glucose 111 70 - 199 mg/dL [facility] Comment: Interpretive Data Fasting [...] 2017. Calcium 8.9 8.5 - 10.3 mg/dL [facility] Bilirubin, total 0.6 0.1 - 1.2 mg/dL [facility] Protein, pl 6.9 6.5 - 8.5 g/dL [facility] Albumin 3.6 3.5 - 5.0 g/dL [facility] Alk phos 166(H) 40 - 130 Units/L [facility] ALT 20 7 - 55 Units/L [facility] AST 42 10 - 50 Units/L [facility] Blood 03/02/2022 5:19 PM CDT 03/02/2022 6:08 PM CDT Romeo Mahoney MD LAB BLOOD ORDERABLES F inal Result Performing Organization Address City/[facility] Co de Phone Number [facility] [place] [address] * (ABNORMAL) CBC without differential (03/02/2022 5:19 PM CDT) Pathologist [facility] WBC 4.7 3.8 - 9.9 K/cumm [facility] Hgb 13.0 13.0 - 17.5 g/dL [facility] Hct 37.6(L) 38.9 - 50.3 % [facility] Plt 80(L) 150 - 400 K/cumm [facility] MPV 10.2 9.1 - 12.3 fL [facility] RBC 4.11(L) 4.30 - 5.80 M/cumm [facility] MCV 91.5 81.3 - 96.4 fL [facility] MCH 31.6 27.1 - 33.3 pg [facility] MCHC 34.6 32.3 - 35.7 g/dL [facility] RDW CV 14.6 11.1 - 14.9 % [facility] RDW SD 48.4(H) 35.7 - 48.1 fL [facility] NRBC abs 0.00 0.00 - 0.01 K/cumm [facility] Blood 03/02/2022 5:19 PM CDT 03/02/2022 6:08 PM CDT Romeo Mahoney MD LAB BLOOD ORDERABLES F inal Result Performing Organization Address [facility]/ZIP Co de Phone Number [facility] [place] [address] * (ABNORMAL) Protime-INR (03/02/2022 5:19 PM CDT) Pathologist [facility] PT 15.1(H) 9.2 - 13.5 sec [facility] INR 1.4(H) 0.9 - 1.2 [facility] Comment: Interpretive data Oral anticoagulant therapeutic ranges: Venous thromboembolism prophylaxis or treatment: 2.0-3.0 CARDIOLOGY Standard range: 2.0-3.0 High-intensity range: 2.5-3.5 Refer to indication-specific guidelines for appropriate target ranges for prosthetic heart valve replacement. Current interpretive data was last revised on 2019. Blood 03/02/2022 5:19 PM CDT 03/02/2022 6:15 PM CDT Romeo Mahoney MD LAB BLOOD ORDERABLES F inal Result [facility] One [facility] [place] [address] * [id number]-6-Ffnxrayzjpa, Tumor Marker (03/02/2022 5:19 PM CDT) [facility] alpha Fetoprotein 2.6 <=8.3 ng/mL [facility] Comment: Interpretive Data The [employer] AFP assay [...] 2018;57:[id number] Fide V. et al. ??Clin Chem 2014;[id number]. Current interpretive data was last revised 2022. Blood 03/02/2022 5:19 PM CDT 03/02/2022 6:08 PM CDT us Romeo Mahoney MD LAB BLOOD ORDERABLES F inal Result Performing Organization Address City/State/[facility] Co de Phone Number [facility] One [facility] Department [place] [address] documented in this encounter Visit Diagnoses Diagnosis Alcoholic cirrhosis of liver with ascites (CMS/HCC) (HCC) documented in this encounter
--- OUTSIDE RECORDS SUMMARY | 2024-06-27 10:33 | XMS_ITS | Encounter Summary ---
Author Organization [facility] Healthcare Address [address] [place] [address] Care Team Providers Care Thinner Sprayer Name Role Phone Unavailable Primary Care Provider Unavailabl e Reason for Visit * Reason Comments Abdominal Pain Encounter Details Date Type Department Care Team ([facility] Contact Info) Description 03/20/2021 6:10 AM CDT - 03/20/2021 10:19 AM CDT Emergency [address] [address] Abdominal pain (Primary Dx); Hematuria, unspecified type [...] needed for pain control. You may use wzda-xlv-zufpyic naproxen (Aleve) as directed instead of ibuprofen, but be aware that ibuprofen products are taken every 6 hours as needed, and naproxen products are taken every 12 hours as needed. You also may want to consider taking an qoid-bya-kjhsyff stomach medication while taking the ibuprofen or [...] Care Everywhere. * Acute Hematuria (Discharge Care) (Micronesian) * Gastroenteritis (AfterCare(R) Instructions(ER/ED)) (Micronesian) documented in this encounter Medications at Time [...] tendency for uric acid stone formation. Source: [facility] [employer].Last revised 06-28-2017 COMPREHENSIVE METABOLIC PANEL - Abnormal [...] home This examination was transcribed using the [employer] voice recognition system without human paper coating machine operator. In an effort to expedite patient care, this report has not been adjusted for typographical, grammatical, and syntax by a trained diagnostic medical sonographer. Clinical Impression: Abdominal pain Hematuria, unspecified type [...] WBC, ur 0-5 0 - 5 /HPF [facility] RBC, ur >50(A) 0 - 2 /HPF [facility] Yeast, ur Trace(A) [facility] Mucous, ur Present(A) [facility] Culture Reflex Comment Reflex conditions for urine culture (WBC >10) not met. [facility] Urine, clean voided 03/20/2021 8:52 AM CDT 03/20/2021 9:02 AM CDT us Earline [facility] URINE ORDERABLES Final [facility]ul t [facility] [address] [facility] Department [place] [address] * (ABNORMAL) Urinalysis reflex to microscopic and culture Urine, clean voided (03/20/2021 8:52 AM CDT) Color, ur Kristi Yellow [facility] Clarity, ur Clear Clear [facility] Specific gravity, ur 1.060(H) 1.003 - 1.030 [facility] pH, urine 6.0 [facility] Protein, ur ql Negative Negative [facility] Glucose, ur ql Negative Negative [facility] Ketones, ur 1+(A) Negative [facility] Bilirubin, ur Negative Negative [facility] Blood, ur 2+(A) Negative [facility] Urobilinogen, ur <2.0 <2.0 mg/dL [facility] Nitrite, ur Negative Negative [facility] Leukocyte esterase, ur Negative Negative [facility] UA reflex comment Reflex to microscopic UA will be performed. [facility] Urine, clean voided 03/20/2021 8:52 AM CDT 03/20/2021 9:02 AM CDT Narrative [facility] - 03/20/2021 9:06 AM CDT ?? Urine pH is affected by diet, medications, systemic acid-base disturbances, and renal tubular function. ??pH may affect urinary stone formation. ??For example, urine pH below 6.0 may help reduce the tendency for calcium phosphate stones and pH greater than 6.0 may reduce the tendency for uric acid stone formation. Source: [facility] [employer]. Last revised 06-28-2017 us Earline [facility] MICROBIOLOGY - GENERAL ORDER WILLIAN Final Result [facility] [address] [facility] Department [place] [address] * CT Abdomen Pelvis W Contrast (03/20/2021 [...] D: ??03/20/2021 8:47 AM T: Report ID: [id number] Reading Location: ??[id number] Procedure Note Cam Zepeda MD - 03/20/2021 [...] signed by Cam DESAI T: Report ID: [id number] Reading Location: [place] [address] PROCEDURES Final Resu [...] LAB BLOOD ORDERABLES Final Resul t [facility] [address] [facility] Department [place] [address] * (ABNORMAL) Differential, auto (03/20/2021 5:23 AM CDT) Neutrophil abs 5.4 1.7 - 6.5 K/cumm [facility] Imm gran abs 0.0 0.0 - 0.1 K/cumm [facility] Lymphocyte abs 0.3(L) 0.8 - 3.3 K/cumm [facility] Monocyte abs 0.3 0.2 - 0.8 K/cumm [facility] Eosinophil abs 0.0 0.0 - 0.5 K/cumm [facility] Basophil abs 0.0 0.0 - 0.1 K/cumm [facility] Neutrophil pct 90.3 % [facility] Comment: Interpretive Data Percent cell count reference ranges are not reported, since discordance with absolute values may lead to misinterpretation of CBC data. Current Interpretive Data was last revised on 2017. Imm gran pct 0.2 % [facility] Comment: Interpretive Data Percent cell count reference ranges are not reported, since discordance with absolute values may lead to misinterpretation of CBC data. Current Interpretive Data was last revised on 2017. Lymphocyte pct 4.5 % [facility] Comment: Interpretive Data Percent cell count reference ranges are not reported, since discordance with absolute values may lead to misinterpretation of CBC data. Current Interpretive Data was last revised on 2017. Monocyte pct 4.8 % [facility] Comment: Interpretive Data Percent cell count reference ranges are not reported, since discordance with absolute values may lead to misinterpretation of CBC data. Current Interpretive Data was last revised on 2017. Eosinophil pct 0.0 % [facility] Comment: Interpretive Data Percent cell count reference ranges are not reported, since discordance with absolute values may lead to misinterpretation of CBC data. Current Interpretive Data was last revised on 2017. Basophil pct 0.2 % [facility] Comment: Interpretive Data Percent cell count reference ranges are not reported, since discordance with absolute values may lead to misinterpretation of CBC data. Current Interpretive Data was last revised on 2017. Blood 03/20/2021 5:23 AM CDT 03/20/2021 5:37 AM CDT us Earline [facility] LAB BLOOD ORDERABLES Final Resul t [facility] [address] [facility] Department [place] [address] * Lipase (03/20/2021 5:23 AM CDT) [facility] Lipase 36 10 - 99 Units/L [facility] Blood 03/20/2021 5:23 AM CDT 03/20/2021 5:37 AM CDT Earline [facility] LAB BLOOD ORDERABLES Final Resul t Performing Organization Address City/[facility] Co de Phone Number [address] [place] [address] * (ABNORMAL) CBC with auto differential (03/20/2021 5:23 AM CDT) [facility] WBC 6.0 3.8 - 9.9 K/cumm [facility] Hgb 13.2 13.0 - 17.5 g/dL [facility] Hct 38.0(L) 38.9 - 50.3 % [facility] Plt 97(L) 150 - 400 K/cumm [facility] MPV 10.7 9.1 - 12.3 fL [facility] RBC 4.55 4.30 - 5.80 M/cumm [facility] MCV 83.5 81.3 - 96.4 fL [facility] MCH 29.0 27.1 - 33.3 pg [facility] MCHC 34.7 32.3 - 35.7 g/dL [facility] RDW CV 15.5(H) 11.1 - 14.9 % [facility] RDW SD 46.9 35.7 - 48.1 fL [facility] NRBC abs 0.00 0.00 - 0.01 K/cumm [facility] Blood 03/20/2021 5:23 AM CDT 03/20/2021 5:37 AM CDT Earline [facility] LAB BLOOD ORDERABLES Final Resul t Performing Organization Address City/[facility]/ZIP Co de Phone Number [address] [place] [address] * (ABNORMAL) Comprehensive metabolic panel (03/20/2021 5:23 AM CDT) [facility] Sodium 135 135 - 145 mmol/L [facility] Potassium, pl 3.8 3.3 - 4.9 mmol/L [facility] Chloride 102 97 - 110 mmol/L [facility] CO2 20(L) 22 - 32 mmol/L [facility] Anion gap 13 2 - 15 mmol/L [facility] BUN 10 8 - 25 mg/dL [facility] Creatinine 0.70(L) 0.80 - 1.30 mg/dL [facility] Comment:The specimen is icte sanket. A high bilirubin level is known to cause a false decrease in measured creatinine. Glucose 134 70 - 199 mg/dL [facility] Comment: Interpretive Data Fasting glucose >/= [...] 2017. Calcium 9.0 8.5 - 10.3 mg/dL [facility] Bilirubin, total 2.5(H) 0.1 - 1.2 mg/dL [facility] Protein, pl 7.0 6.5 - 8.5 g/dL [facility] Albumin 3.4(L) 3.5 - 5.0 g/dL [facility] Alk phos 110 40 - 130 Units/L [facility] ALT 23 7 - 55 Units/L [facility] AST 55(H) 10 - 50 Units/L [facility] Blood 03/20/2021 5:23 AM CDT 03/20/2021 5:37 AM CDT us Earline [facility] LAB BLOOD ORDERABLES Final Resul t [facility] [address] [facility] [place] [address] documented in this encounter Visit Diagnoses Diagnosis [...]
--- OUTSIDE RECORDS SUMMARY | 2024-06-27 10:33 | XMS_ITS | Encounter Summary ---
Author Organization [facility] Address [address] [address] Care Team Providers Care Refrigeration Engineer Name Role Phone Unavailable Primary Care Provider Unavailabl e Reason for Visit * Reason Comments Restless Legs bilat lower legs Encounter Details Date Type Department Care Team (Latest Contact Info) Description 06/08/2020 12:45 PM SURGEON/PRESIDENT Office Visit [facility] Medical [facility] Primary Care [address] [place] [phone] Aileen Olmstead PA [address] [place] [address] Drug-induced polyneuropathy (CMS/HCC) (Primary Dx); [...] Comments Blood Pressure 110/70 06/08/2020 12:57 PM SURGEON/PRESIDENT Pulse 68 06/08/2020 12:57 PM SURGEON/PRESIDENT Temperature 36 ??C (96.8 ??F) 06/08/2020 12:57 PM SURGEON/PRESIDENT Respiratory Rate 16 06/08/2020 12:57 PM SURGEON/PRESIDENT Oxygen Saturation 98% 06/08/2020 12:57 PM SURGEON/PRESIDENT Inhaled Oxygen Concentration - - Weight 84 kg (185 lb 3.2 oz) 06/08/2020 12:57 PM SURGEON/PRESIDENT Height 182.9 cm (6') 06/08/2020 12:57 PM SURGEON/PRESIDENT Body Mass Index 25.12 06/08/2020 12:57 PM SURGEON/PRESIDENT documented in this encounter Ordered Prescriptions Prescription [...] and oriented to person, place, and time. EON/PRESIDENT documented in this encounter Miscellaneous Notes * Assessment & Plan Note - Aileen Olmstead PA - 06/08/2020 1:22 PM SURGEON/PRESIDENT Associated Problem(s): Drug-induced polyneuropathy (HCC) Chronic for years. Previously responded well to night dose of gabapentin. Will restart that again. EON/PRESIDENT * Assessment & Plan Note - Aileen Olmstead PA - 06/08/2020 1:21 PM SURGEON/PRESIDENT Associated Problem(s): Restless leg syndrome Chronic for years. Previously responded well to night dose of gabapentin. Will restart that again. EON/PRESIDENT documented in this encounter Plan of Treatment [...]
--- OUTSIDE RECORDS SUMMARY | 2024-06-27 10:33 | XMS_ITS | Encounter Summary ---
Author Organization [facility] Address [address] [place] [address] Care Team Providers Care Arts And Sciences Dean Name Role Phone Referring, Unknown MD Primary Care Provider Unav ailable Reason for Referral * Diagnostic Imaging (Routine) - Closed Specialty Diagnoses / Procedures Referred By Contac t Referred To Contact Diagnoses Alcoholic cirrhosis of liver with ascites (CMS/HCC) (HCC) Procedures US Abdomen Limited Romeo Mahoney MD [address] [place] [address] Phone: tel: fax: [address] [phone] Referral ID Status Reason Start Date Expiration Date Visits Re quested Visits Authorized [id number] Closed 03/02/2022 04/01/2023 1 1 Reason for Visit * Diagnostic Imaging (Routine) - Closed Specialty Diagnoses / Procedures Referred By Contac t Referred To Contact Diagnoses Alcoholic cirrhosis of liver with ascites (CMS/HCC) (HCC) Procedures US Abdomen Limited Romeo Mahoney MD [address] [place] [address] Phone: tel: fax: [address] [phone] Referral ID Status Reason Start Date Expiration Date Visits Re quested Visits Authorized [id number] Closed 03/02/2022 04/01/2023 1 1 Encounter Details Date Type Department Care Team (Latest Contact Info) Description 03/31/2022 10:44 AM CDT - 03/31/2022 11:59 PM CDT Hospital Encounter [facility] [address] [place] [address] Romeo Mahoney MD [address] [facility] [address] [place] [address] Alcoholic cirrhosis of liver with ascites (CMS/HCC) [...] (HCC) documented in this encounter Care Teams Arts And Sciences Dean Relationship Specialty Start Date End Date Referring, Unknown, MD PCP - General Pediatrics 03/19/22 04/26/22 documented as of this encounter
--- OUTSIDE RECORDS SUMMARY | 2024-06-27 10:33 | XMS_ITS | Encounter Summary ---
Author Organization [facility] Address [address] [facility] [address] [place] [address] Care Team Providers Care Blanket Inspector Name Role Phone Unavailable Primary Care Provider Unavailabl e Reason for Visit * Reason Comments Pain Lower extremities, r estless legs getting worse Encounter Details Date Type Department Care Team (Late st Contact Info) Description 11/09/2020 2:00 PM CDT Office Visit [facility] Primary Care [address] [place] [phone] Aileen Olmstead PA [address] [place] [address] Restless leg syndrome (Primary Dx) Social History [...]
--- OUTSIDE RECORDS SUMMARY | 2024-06-27 10:33 | XMS_ITS | Encounter Summary ---
Author Organization [facility] Healthcare Address [address] [place] [address] Care Team Providers Care Wardrobe Custodian Name Role Phone Unavailable Primary Care Provider Unavailabl e Encounter Details Date Type Department Care Team (Late st Contact Info) Description 03/21/[address] [phone] Tanya Valadez RN Social History Tobacco Use [...]
--- OUTSIDE RECORDS SUMMARY | 2024-06-27 10:33 | XMS_ITS | Encounter Summary ---
Author Organization [facility] Healthcare Address [address] [place] [id number] Care Team Providers Care Quarter Doper Name Role Phone Unavailable Primary Care Provider Unavailabl e Reason for Visit * Reason Comments Drug Overdose Suicide Attempt Encounter Details Date Type Department Care Team ([facility] st Contact Info) Description 08/24/2021 12:38 PM MACHINIST SUPERVISOR OUTSIDE - 08/24/2021 6:24 PM [facility] Emergency [facility] Emergency Department [facility] [place] [address] Jerrica Botello MD [address] [place] [address] [place], [place] [id number] Intracranial hemorrhage (CMS/HCC) (HCC) (Primary Dx) Discharge [...] Comments Blood Pressure 145/80 08/24/2021 5:30 PM MACHINIST SUPERVISOR OUTSIDE Pulse 105 08/24/2021 5:45 PM MACHINIST SUPERVISOR OUTSIDE Temperature 36.6 ??C (97.9 ??F) 08/24/2021 12:[address] Respiratory Rate 18 08/24/2021 5:45 PM MACHINIST SUPERVISOR OUTSIDE Oxygen Saturation 100% 08/24/2021 5:30 PM MACHINIST SUPERVISOR OUTSIDE Inhaled Oxygen Concentration - - Weight 83.9 kg (185 lb) 08/24/2021 12:43 PM MACHINIST SUPERVISOR OUTSIDE Height - - Body Mass Index 25.09 06/20/2021 1:38 PM MACHINIST SUPERVISOR OUTSIDE documented in this encounter Medications at Time [...] Discharge to a short term hospital for [facility] air evac documented in this encounter Nursing Notes * Christy Holliday RN - 08/24/2021 6:13 PM CST Infusions running at time of transfer Versed at 4mg/hr Nicardipine 0.5mcg Propofol 100mcg Mannitol Pt was not responsive at time of transfer with Air Evac. Posturing noted in arms and legs. INIST SUPERVISOR OUTSIDE * Christy Holliday RN - 08/24/2021 5:36 [...] propofol to 50 mcg 1558 [place] inserted INIST SUPERVISOR OUTSIDE documented in this encounter ED Notes * [...] Botello MD Authorized by: Jerrica Botello MD [place] Protocol: RN Notified of Procedure: yes Informed consent: Risks, benefits, alternatives discussed and patient/passenger representative/guardian agrees and accepts Patient's stated name/ [...] position. No acute cardiopulmonary process identified. ?? [facility] Labs Reviewed URINALYSIS AND REFLEX [...] for uric acid stone formation. Source: [facility] [employer].Last revised 06-28-2017 CBC WITH AUTO DIFFERENTIAL - [...] (185 lb) SpO2 100% BMI 25.09 kg/m?? [facility] ED Course as of 08/24/21 [...] 08/24 1702 Comment: Discussed with Dr. Riley, [facility] stroke team, will accept in transfer. By: Jerrica Botello MD Time: 08/24 1720 Comment: Will decrease oxygen to 50% and decreased rate to 16 breaths per minute. By: Jerrica Botello MD This examination was transcribed using the [employer] voice recognition system without human social service assistant. In an effort to expedite patient care, this report has not been adjusted for typographical, grammatical, and syntax by a trained biomedical photographer. Cyndee Lema scribed for Jerrica Botello in [...] hemorrhage (CMS/HCC) (HCC) Jerrica Botello MD 08/24/211818 INIST SUPERVISOR OUTSIDE * Christy Holliday RN - 08/24/2021 12:40 PM CST Pt arrived via EMS who were called by sister. Sister states patient ate a bottle of meth . Pt has hx of meth use, states he recently lost his job and his home and was taking the meth to end his life. Pt cooperative and calm. VSS.. IV established by EMS. INIST SUPERVISOR OUTSIDE documented in this encounter Miscellaneous Notes * ED Procedure Note - Jerrica oBtello MD - 08/24/2021 6:10 PM CSTAssociated Order(s): [...] cerebrovascular accident (CVA) Jerrica Botello MD 08/24/211810 INIST SUPERVISOR OUTSIDE documented in this encounter Plan of Treatment Not on file documented as of this encounter Procedures Procedure Name Priority Date/Time Associated Diagnosis Comments [place] CRITICAL CARE ILL/INJURED PATIENT INIT 30-74 MIN Routine 08/24/2021 6:10 PM MACHINIST SUPERVISOR OUTSIDE APTT STAT 08/24/2021 5:17 PM MACHINIST SUPERVISOR OUTSIDE PROTIME-INR STAT 08/24/2021 5:17 PM MACHINIST SUPERVISOR OUTSIDE BLOOD GAS, ARTERIAL STAT 08/24/2021 5 :04 [address]PERVISOR OUTSIDE [address] HEAD WO CONTRAST ED 08/24/2021 4 :45 PM MACHINIST SUPERVISOR OUTSIDE CREATINE KINASE (CK), TOTAL STAT 08/24/2021 4:19 PM MACHINIST SUPERVISOR OUTSIDE URINALYSIS AND REFLEX TO MICROSCOPIC AND CULTURE STAT 08/24/2021 4:03 PM MACHINIST SUPERVISOR OUTSIDE DRUGS OF ABUSE SCREEN, URINE WITHOUT CONFIRMATION STAT 08/24/2021 4:03 PM MACHINIST SUPERVISOR OUTSIDE URINALYSIS, MICROSCOPIC ONLY STAT 08/24/2021 4:03 PM MACHINIST SUPERVISOR OUTSIDE XR CHEST 1 VIEW ED 08/24/2021 3:53 PM MACHINIST SUPERVISOR OUTSIDE ED INTUBATION Routine 08/24/2021 3:43 PM MACHINIST SUPERVISOR OUTSIDE EGFR STAT 08/24/2021 2:28 PM MACHINIST SUPERVISOR OUTSIDE THYROID FUNCTION CASCADE STAT 08/24/2021 2:28 PM MACHINIST SUPERVISOR OUTSIDE SALICYLATE LEVEL STAT 08/24/2021 2:28 PM MACHINIST SUPERVISOR OUTSIDE COMPREHENSIVE METABOLIC PANEL STAT 08/24/2021 2:28 PM MACHINIST SUPERVISOR OUTSIDE DIFFERENTIAL AUTO STAT 08/24/2021 1:0 0 PM MACHINIST SUPERVISOR OUTSIDE CBC WITH AUTO DIFFERENTIAL STAT 08/24/2021 1:00 PM MACHINIST SUPERVISOR OUTSIDE ECG 12-LEAD STAT 08/24/2021 12:48 PM MACHINIST SUPERVISOR OUTSIDE documented in this encounter Results * [place] CRITICAL CARE ILL/INJURED PATIENT INIT 30-74 MIN (08/24/2021 6:10 PM MACHINIST SUPERVISOR OUTSIDE) Narrative Jerrica Botello MD - 08/24/2021 6:10 PM MACHINIST SUPERVISOR OUTSIDE Jerrica Botello MD ? 08/24/2021 ??6:11 PM [...] Result * (ABNORMAL) Protime-INR (08/24/2021 5:17 PM MACHINIST SUPERVISOR OUTSIDE) PT 19.0(H) 12.0 - 14.6 sec KENNY Comment: Ref Range High Testing performed by: [address] [address] INR 1.6(H) 0.9 - 1.2 KENNY Comment: Ref Range High Interpretive data Oral anticoagulant therapeutic ranges: Venous thromboembolism prophylaxis or treatment: 2.0-3.0 CARDIOLOGY Standard range: 2.0-3.0 High-intensity range: 2.5-3.5 Refer to indication-specific guidelines for appropriate target ranges for prosthetic heart valve replacement. Current interpretive data was last revised on 2019. Testing performed by: [address] [address] Blood 08/24/2021 5:17 PM MACHINIST SUPERVISOR OUTSIDE 08/24/2021 5:20 PM MACHINIST SUPERVISOR OUTSIDE us Jerrica Botello MD LAB BLOOD ORDERABLES Final Resul t [facility] [address] [facility] Department [place] [address] * aPTT (08/24/2021 5:17 PM MACHINIST SUPERVISOR OUTSIDE) aPTT 36 22 - 37 sec KENNY Comment: Interpretive data aPTT test has not been evaluated for monitoring heparin therapy. The anti-Xa is the preferred test. Current interpretive data was last revised on 2019. Testing performed by: [address] [address] Blood 08/24/2021 5:17 PM MACHINIST SUPERVISOR OUTSIDE 08/24/2021 5:20 PM MACHINIST SUPERVISOR OUTSIDE Jerrica Botello MD LAB BLOOD ORDERABLES Final Resul t Performing Organization Address [facility] Co de Phone Number [facility] [address] [facility] Department [place] [address] * (ABNORMAL) Blood gas, arterial (08/24/2021 5:04 PM MACHINIST SUPERVISOR OUTSIDE) pH, Art 7.52(H) 7.35 - 7.45 KENNY Comment:Testing performed by : [address] [address] PCO2, Arterial 28(L) 35 - 45 mmHg KENNY Comment:Testing performed by : [address] [address] PO2, Arterial 491(H) 83 - 108 mmHg KENNY Comment:Testing performed by : [address] [address] HCO3 Art (Calculated) 24 20 - 30 mmol/L KENNY Comment:Testing performed by : [address] [address] BE, art 1 mmol/L KENNY Comment: Interpretive Data No Reference Range Established Current Interpretive Data was last revised on 2017. Testing performed by: [address] [address] Blood 08/24/2021 5:04 PM MACHINIST SUPERVISOR OUTSIDE 08/24/2021 5:10 PM MACHINIST SUPERVISOR OUTSIDE Jerrica Botello MD LAB BLOOD ORDERABLES Final Resul t Performing Organization Address City/[facility] Co de Phone Number KENNY [address] [facility] Department [place] [address] * CT Head WO Contrast (08/24/2021 4:45 PM MACHINIST SUPERVISOR OUTSIDE) Anatomical Region Laterality Modality Head and Neck N/A Computed Tomogra phy 08/24/2021 4:50 PM MACHINIST SUPERVISOR OUTSIDE Narrative 08/24/2021 4:57 PM MACHINIST SUPERVISOR OUTSIDE EXAM DESCRIPTION: ?? CT HEAD WO CONTRAST [...] PM T: ??08/24/2021 4:57 PM Report ID: [id number] Reading Location: ??[id number] Procedure Note Sudhakar Flores MD - 08/24/2021 [...] Sudhakar Flores M.D. RB: BECK Report ID: [id number] Reading Location: [id number] Jerrica Botello MD IMG CT PROCEDURES Final Result * (ABNORMAL) Creatine kinase (CK), total (08/24/2021 4:19 PM MACHINIST SUPERVISOR OUTSIDE) CK 502(H) 40 - 300 Units/L KENNY MCKINNEY Comment:Testing performed by : [address] [address] Blood 08/24/2021 4:19 PM MACHINIST SUPERVISOR OUTSIDE 08/24/2021 4:22 PM MACHINIST SUPERVISOR OUTSIDE Jerrica Botello MD LAB BLOOD ORDERABLES Final Resul t Performing Organization Address [facility] Co de Phone Number KENNY [address] [place] [address] * (ABNORMAL) Urinalysis, microscopic only (08/24/2021 4:03 PM MACHINIST SUPERVISOR OUTSIDE) WBC, ur 0-5 0 - 5 /HPF KENNY Comment:Testing performed by : [facility], [address] [place] [address]., [address] RBC, ur 3-5(A) 0 - 2 /HPF KENNY Comment:Testing performed by : [address] [address] Mucous, ur Present(A) KENNY Comment:Testing performed by : [address] [address] Amorphous crystals, ur 1+(A) KENNY Comment:Testing performed by : [address] [address] Culture Reflex Comment Reflex conditions for urine culture (WBC >10) not met. KENNY Comment:Testing performed by : [address] [address] Urine 08/24/2021 4:03 PM MACHINIST SUPERVISOR OUTSIDE 08/24/2021 4:07 PM MACHINIST SUPERVISOR OUTSIDE us Jerrica Botello MD LAB URINE ORDERABLES Final Resul t Performing Organization Address [facility] Co de Phone Number KENNY [address] [address] * (ABNORMAL) Drugs of Abuse Screen, Urine without Confirmation (08/24/2021 4:03 PM MACHINIST SUPERVISOR OUTSIDE) Amphetamine, ur Detected(A) CutOff 500ng/mL [facility] Comment: Interpretive Data - Amphetamines: ??Samples containing greater than 500 ng/mL d-methamphetamine ??or other cross-reacting amphetamine compounds are reported as positive. ??Amphetamine immunoassays are subject to significant false positive rates due to cross-reactivity of non-amphetamine drugs. Current Interpretive Data was last reviewed 2018. Testing performed by: [facility], [address] [place] [address]., [address] Barbiturates, ur Not Detected CutOff 200ng/mL [facility] Comment: Interpretive Data - Barbiturates: ??Samples containing greater than 200 ng/mL secobarbital or other cross-reacting barbiturate compounds are reported as positive. ??False positive and false negative results are possible. Current Interpretive Data was last reviewed 2018. Testing performed by: [facility], [address] [place] [address]., [address] Benzodiazepines, ur Not Detected CutOff 100ng/mL [facility] Comment: Interpretive Data - Benzodiazepines: ??Samples containing greater than 100 ng/mL nordiazepam or other cross-reacting compounds are reported as positive. ?? False positive and false negative results are possible. ?? Current Interpretive Data was last reviewed 2018. Testing performed by: [address] [address] Cannabinoids, ur Detected(A) CutOff 50 ng/mL [facility] Comment: Interpretive Data - Cannabinoids: ??Samples containing greater than 50 ng/mL delta-9 THC -COOH or other cross-reacting compounds are reported as positive. ??False positive and false negative results are possible. ?? Current Interpretive Data was last reviewed 2018. Testing performed by: [address] [address] Cocaine, ur Not Detected CutOff 150ng/mL [facility] Comment: Interpretive Data - Cocaine: ??Samples containing greater than 150 ng/mL benzoylecgonine or other cross-reacting compounds are reported as positive. False positive and false negative results are possible. Current Interpretive Data was last reviewed 2018. Testing performed by: [address] [address] Fentanyl, Ur Not Detected Cutoff 1 ng/mL [facility] Comment: Interpretive Data - Fentanyls: ??Samples containing greater than 1 ng/mL fentanyl or other cross-reacting fentanyl compounds are reported as detected. ??False positive and false negative results are possible. Current Interpretive Data was last reviewed 2019. Testing performed by: [address] [address] Methadone, ur Not Detected CutOff 300ng/mL [facility]NY Comment: Interpretive Data - Methadone: ??Samples containing greater than 300 ng/mL d,l-methadone or other cross-reacting compounds are reported as positive. ??False positive and false negative results are possible. Current Interpretive Data was last reviewed 2018. Testing performed by: [address] [address] Opiates, ur Not Detected CutOff 300ng/mL [facility] Comment: Interpretive Data - Opiates: ??Samples containing greater than 300 ng/mL morphine or other cross-reacting compounds are reported as positive. ??False positive and false negative results are possible. Current Interpretive Data was last reviewed 2018. Testing performed by: [address] [address] Oxycodone, ur Not Detected CutOff 100ng/mL [facility] Comment: Interpretive Data - Oxycodone: ??Samples containing greater than 100 ng/mL oxycodone or other cross-reacting compounds are reported as positive. ??False positive and false negative results are possible. ?? Current Interpretive Data was last reviewed 2018. Testing performed by: [address] [address] Phencyclidine, ur Not Detected CutOff 25 ng/mL [facility] Comment: Interpretive Data - Phencyclidine: ??Samples containing greater than 25 ng/mL phencyclidine or other cross-reacting compounds are reported as positive. ??False positive and false negative results are possible. ?? Current Interpretive Data was last reviewed 2018. Testing performed by: [address] [address] Urine Creatinine 70 mg/dL [facility]NY Comment: Interpretive Data Urine Creatinine: < 10 mg/dL is extremely dilute = or > 10 but < 20 mg/dL is dilute = or > 20 mg/dL is normal Current Interpretive Data was last revised on 2017. Testing performed by: [address] [address] Urine 08/24/2021 4:03 PM MACHINIST SUPERVISOR OUTSIDE 08/24/2021 4:07 PM MACHINIST SUPERVISOR OUTSIDE Narrative KENNY - 08/24/2021 5:03 PM MACHINIST SUPERVISOR OUTSIDE Drug of Abuse screening is performed by immunoassay for medical purposes only. ??This is not to be used for Pain Management purposes. us Jerrica Botello MD LAB URINE ORDERABLES Final Resul t [facility] [address] [facility] Department [place] [address] * (ABNORMAL) Urinalysis reflex to microscopic and culture Urine (08/24/2021 4:03 PM MACHINIST SUPERVISOR OUTSIDE) Color, ur Yellow Yellow KENNY Comment:Testing performed by : [address] [address] Clarity, ur Cloudy(A) Clear KENNY Comment:Testing performed by : [address] [address] Specific gravity, ur 1.014 1.003 - 1.030 KENNY Comment:Testing performed by : [address] [address] pH, urine 7.0 KENNY Comment:Testing performed by : [address] [address] Protein, ur ql Negative Negative KENNY Comment:Testing performed by : [address] [address] Glucose, ur ql Negative Negative KENNY Comment:Testing performed by : [address] [address] Ketones, ur Negative Negative KENNY Comment:Testing performed by : [address] [address] Bilirubin, ur Negative Negative KENNY Comment:Testing performed by : [address] [address] Blood, ur 2+(A) Negative KENNY Comment:Testing performed by : [facility], [address] [place] [address]., [address] Urobilinogen, ur <2.0 <2.0 mg/dL KENNY Comment:Testing performed by : [address], [place]., [address] Nitrite, ur Negative Negative KENNY Comment:Testing performed by : [address] [address] Leukocyte esterase, ur Negative Negative KENNY Comment:Testing performed by : [address], [place]., [address] UA reflex comment Reflex to microscopic UA will be performed. KENNY Comment:Testing performed by : [address] [address] Urine 08/24/2021 4:03 PM MACHINIST SUPERVISOR OUTSIDE 08/24/2021 4:07 PM MACHINIST SUPERVISOR OUTSIDE Narrative KENNY - 08/24/2021 4:23 PM MACHINIST SUPERVISOR OUTSIDE ?? Urine pH is affected by diet, medications, systemic acid-base disturbances, and renal tubular function. ??pH may affect urinary stone formation. ??For example, urine pH below 6.0 may help reduce the tendency for calcium phosphate stones and pH greater than 6.0 may reduce the tendency for uric acid stone formation. Source: [facility] [employer]. Last revised 06-28-2017 us Jerrica Botello MD LAB MICROBIOLOGY - GENERAL ORDER WILLIAN Final Result [facility] [address] [facility] Department [place] [address] * XR Chest 1 Vw Portable (08/24/2021 3:53 PM MACHINIST SUPERVISOR OUTSIDE) Anatomical Region Laterality Modality Body, Chest N/A Computed Radiogr aphy 08/24/2021 3:58 PM MACHINIST SUPERVISOR OUTSIDE Narrative 08/24/2021 4:00 PM MACHINIST SUPERVISOR OUTSIDE EXAM DESCRIPTION: ?? XR CHEST 1 VIEW [...] PM T: ??08/24/2021 4:00 PM Report ID: [id number] Reading Location: ??[id number] Procedure Note Adonay Cui MD - 08/24/2021 [...] Adonay Cui M.D. BC: MAK Report ID: [id number] Reading Location: [place] [address] us Jerrica Botello MD IMG XR PROCEDURES Final Result * ED INTUBATION (08/24/2021 3:43 PM MACHINIST SUPERVISOR OUTSIDE) Narrative Jerrica Botello MD - 08/24/2021 3:43 PM MACHINIST SUPERVISOR OUTSIDE Jerrica Botello MD ? 08/24/2021 ??6:19 PM Intubation Date/Time: 08/24/2021 3:43 PM Performed by: Jerrica Botello MD Authorized by: Jerrica Botello MD [place] Protocol: ??RN Notified of Procedure: yes ?Informed consent: ??Risks, benefits, alternatives discussed and patient/passenger representative/guardian agrees and accepts ??Patient's stated name/ [...] al Result * eGFR (08/24/2021 2:28 PM MACHINIST SUPERVISOR OUTSIDE) eGFR 118 mL/min/1. 73 m2 KENNY MCKINNEY [...] was last reviewed 2021. Testing performed by: [facility], [address] [place] [address], [place]., [address] Blood 08/24/2021 2:28 PM MACHINIST SUPERVISOR OUTSIDE 08/24/2021 2:32 PM MACHINIST SUPERVISOR OUTSIDE us Jerrica Botello MD LAB BLOOD ORDERABLES Final Resul t [facility] Department [place] [address] * (ABNORMAL) Comprehensive metabolic panel (08/24/2021 2:28 PM MACHINIST SUPERVISOR OUTSIDE) [facility] Sodium 136 135 - 145 mmol/L KENNY Comment:Testing performed by : [address], [place]., [address] Potassium, pl 3.8 3.3 - 4.9 mmol/L KENNY Comment:Testing performed by : [address], [place]., [address] Chloride 101 97 - 110 mmol/L KENNY Comment:Testing performed by : [address], [place]., [address] CO2 23 22 - 32 mmol/L KENNY Comment:Testing performed by : [address], [place]., [address] Anion gap 12 2 - 15 mmol/L KENNY Comment:Testing performed by : [address] [address] BUN 11 8 - 25 mg/dL KENNY Comment:Testing performed by : [address], [place]., [address] Creatinine 0.60(L) 0.80 - 1.30 mg/dL KENNY Comment:Testing performed by : [address], [place]., [address] Glucose 108 70 - 199 mg/dL KENNY [...] was last revised 2017. Testing performed by: [address], [place]., [address] Calcium 9.0 8.5 - 10.3 mg/dL KENNY Comment:Testing performed by : [address] [address] Bilirubin, total 1.2 0.1 - 1.2 mg/dL KENNY Comment:Testing performed by : [address] [address] Protein, pl 7.2 6.5 - 8.5 g/dL KENNY Comment:Testing performed by : [address] [address] Albumin 3.3(L) 3.5 - 5.0 g/dL KENNY Comment:Testing performed by : [address] [address] Alk phos 155(H) 40 - 130 Units/L KENNY Comment:Testing performed by : [address] [address] ALT 55 7 - 55 Units/L KENNY Comment:Testing performed by : [address] [address] AST 98(H) 10 - 50 Units/L KENNY Comment:Testing performed by : [address] [address] Blood 08/24/2021 2:28 PM MACHINIST SUPERVISOR OUTSIDE 08/24/2021 2:32 PM MACHINIST SUPERVISOR OUTSIDE us Jerrica Botello MD LAB BLOOD ORDERABLES Final Resul t Performing Organization Address [facility] Phone Number [facility] Department of Laboratories [place], [place] [id number] * Salicylate level (08/24/2021 2:28 PM MACHINIST SUPERVISOR OUTSIDE) Salicylate <1.0 mg/dL KENNY Comment:Testing performed by : [address] [address] Blood 08/24/2021 2:28 PM MACHINIST SUPERVISOR OUTSIDE 08/24/2021 2:32 PM MACHINIST SUPERVISOR OUTSIDE us Jerrica Botello MD LAB BLOOD ORDERABLES Final Resul t Performing Organization Address City/State/[facility] de Phone Number [facility] [address] [facility] [place] [address] * TSH reflex to free T4 (08/24/2021 2:28 PM MACHINIST SUPERVISOR OUTSIDE) Pathologist [facility] TSH 3.44 0.30 - 4.20 mcIUnit/mL KENNY Comment:Testing performed by : [address] [address] Blood 08/24/2021 2:28 PM MACHINIST SUPERVISOR OUTSIDE 08/24/2021 2:32 PM MACHINIST SUPERVISOR OUTSIDE us Jerrica Botello MD LAB BLOOD ORDERABLES Final Resul t Performing Organization Address [facility] Co de Phone Number [place] [id number] [facility] [place] [address] * Differential, auto (08/24/2021 1:00 PM MACHINIST SUPERVISOR OUTSIDE) Pathologist [facility] Neutrophil abs 3.7 1.7 - 6.5 K/cumm KENNY Comment:Testing performed by : [address] [address] Imm gran abs 0.0 0.0 - 0.1 K/cumm KENNY Comment:Testing performed by : [address] [address] Lymphocyte abs 1.7 0.8 - 3.3 K/cumm KENNY Comment:Testing performed by : [address] [address] Monocyte abs 0.7 0.2 - 0.8 K/cumm KENNY Comment:Testing performed by : [address] [address] Eosinophil abs 0.2 0.0 - 0.5 K/cumm KENNY Comment:Testing performed by : [address] [address] Basophil abs 0.1 0.0 - 0.1 K/cumm KENNY Comment:Testing performed by : [address] [address] Neutrophil pct 58.9 % [facility] Comment: Interpretive Data Percent cell count reference ranges are not reported, since discordance with absolute values may lead to misinterpretation of CBC data. Current Interpretive Data was last revised on 2017. Testing performed by: [address] [address] Imm gran pct 0.2 % [facility] Comment: Interpretive Data Percent cell count reference ranges are not reported, since discordance with absolute values may lead to misinterpretation of CBC data. Current Interpretive Data was last revised on 2017. Testing performed by: [address] [address] Lymphocyte pct 26.6 % [facility] Comment: Interpretive Data Percent cell count reference ranges are not reported, since discordance with absolute values may lead to misinterpretation of CBC data. Current Interpretive Data was last revised on 2017. Testing performed by: [address] [address] Monocyte pct 10.6 % [facility] Comment: Interpretive Data Percent cell count reference ranges are not reported, since discordance with absolute values may lead to misinterpretation of CBC data. Current Interpretive Data was last revised on 2017. Testing performed by: [address] [address] Eosinophil pct 2.7 % [facility] Comment: Interpretive Data Percent cell count reference ranges are not reported, since discordance with absolute values may lead to misinterpretation of CBC data. Current Interpretive Data was last revised on 2017. Testing performed by: [address] [address] Basophil pct 1.0 % [facility] Comment: Interpretive Data Percent cell count reference ranges are not reported, since discordance with absolute values may lead to misinterpretation of CBC data. Current Interpretive Data was last revised on 2017. Testing performed by: [address] [address] Blood 08/24/2021 1:00 PM MACHINIST SUPERVISOR OUTSIDE 08/24/2021 1:06 PM MACHINIST SUPERVISOR OUTSIDE us Jerrica Botello MD LAB BLOOD ORDERABLES Final Resul t [facility] [address] [facility] Department [place] [address] * (ABNORMAL) CBC with auto differential (08/24/2021 1:00 PM MACHINIST SUPERVISOR OUTSIDE) [facility] WBC 6.2 3.8 - 9.9 K/cumm KENNY Comment:Testing performed by : [address] [address] Hgb 14.8 13.0 - 17.5 g/dL KENNY Comment:Testing performed by : [address] [address] Hct 42.9 38.9 - 50.3 % KENNY Comment:Testing performed by : [address] [address] Plt 100(L) 150 - 400 K/cumm KENNY Comment:Testing performed by : [address] [address] MPV 12.9(H) 9.1 - 12.3 fL KENNY Comment:Testing performed by : [address] [address] RBC 4.73 4.30 - 5.80 M/cumm KENNY Comment:Testing performed by : [address] [address] MCV 90.7 81.3 - 96.4 fL KENNY Comment:Testing performed by : [address] [address] MCH 31.3 27.1 - 33.3 pg KENNY Comment:Testing performed by : [address] [address] MCHC 34.5 32.3 - 35.7 g/dL KENNY Comment:Testing performed by : [address] [address] RDW CV 15.4(H) 11.1 - 14.9 % KENNY Comment:Testing performed by : [address] [address] RDW SD 49.7(H) 35.7 - 48.1 fL KENNY Comment:Testing performed by : [facility], [address] [place] [address]., [address] NRBC abs 0.00 0.00 - 0.01 K/cumm KENNY Comment:Testing performed by : [facility], [address] [place] [address]., [address] Blood 08/24/2021 1:00 PM MACHINIST SUPERVISOR OUTSIDE 08/24/2021 1:06 PM MACHINIST SUPERVISOR OUTSIDE us Jerrica Botello MD LAB BLOOD ORDERABLES Final Resul t Performing Organization Address City/[facility] Co de Phone Number [facility] [address] [facility] Department [place] [address] * ECG 12 lead (08/24/2021 12:48 PM MACHINIST SUPERVISOR OUTSIDE) Pathologist [facility] Ventricular Rate EKG/Min 85 BPM [facility] Atrial Rate 85 BPM [facility] IL-Interval (MSEC) 140 ms [facility] QRS-Interval (MSEC) 94 ms [facility] QT-Interval (MSEC) 388 ms [facility] QTc 461 ms [facility] P [place] 54 degrees [facility] R [place] 69 degrees [facility] T [place] 63 degrees [facility] Diagnosis Normal sinus rhythm Moderate voltage criteria for LVH, may be normal variant Borderline ECG When compared with ECG of 30-DEC-2019 13:04, Questionable change in QRS axis T wave inversion no longer evident in Inferior leads [facility] 08/24/2021 12:4 8 PM MACHINIST SUPERVISOR OUTSIDE 08/24/2021 3:47 PM MACHINIST SUPERVISOR OUTSIDE us Jerrica Botello MD ECG ORDERABLES Final Result Performing Organization Address [facility] Co de Phone Number [facility] documented in this encounter Visit Diagnoses Diagnosis [...] For 1 dose Given 08/24/2021 4:50 PM MACHINIST SUPERVISOR OUTSIDE 10 mg diazePAM (VALIUM) 5 mg/mL injection - ADS Override Pull Starting on Sun08/24/21 at 1528, For 1 dose, Created by lisyt override Given 08/24/2021 3:30 PM MACHINIST SUPERVISOR OUTSIDE 10 mg Right Forearm etomidate (AMIDATE) 2 mg/mL injection - ADS Override Pull Starting on Sun08/24/21 at 1526, For 1 dose, Created by [email or web address] override Given 08/24/2021 3:36 PM MACHINIST SUPERVISOR OUTSIDE 20 mg levETIRAcetam (KEPPRA) 1,000 mg/100 mL [...] temperature only New Bag 08/24/2021 3:54 PM MACHINIST SUPERVISOR OUTSIDE 2,000 mg LORazepam (ATIVAN) injection 1 mg 1 mg, intravenous, Once, On Sun08/24/21 at 1439, For 1 dose, For IV administration, dilute with equal volume of 0.9% sodium chloride to a final concentration of 1 mg/mL. Do not exceed a rate of 2 mg/minute Given 08/24/2021 2:41 PM MACHINIST SUPERVISOR OUTSIDE 1 mg LORazepam (ATIVAN) injection 2 mg 2 mg, intravenous, Once, On Sun08/24/21 at 1254, For 1 dose, For IV administration, dilute with equal volume of 0.9% sodium chloride to a final concentration of 1 mg/mL. Do not exceed a rate of 2 mg/minute, Indications: AgitationIndications:A gitation Given 08/24/2021 1:26 PM MACHINIST SUPERVISOR OUTSIDE 2 mg LORazepam (ATIVAN) injection 2 mg 2 mg, intravenous, Once, On Sun08/24/21 at 1510, For 1 dose, For IV administration, dilute with equal volume of 0.9% sodium chloride to a final concentration of 1 mg/mL. Do not exceed a rate of 2 mg/minute, Indications: AgitationIndications:A gitation Given 08/24/2021 3:12 PM MACHINIST SUPERVISOR OUTSIDE 2 mg mannitoL 20 % IV 84 g 84 g (rounded from 83.9 g = 1 g/kg ? 83.9 kg), intravenous, at 840 mL/hr, Administer over 30 Minutes, Once, On Sun08/24/21 at 1716, For 1 dose, May decrease infusion time for emergent therapy for ICP. Use filter 5 micron or less. Room temperature only New Bag 08/24/2021 5:32 PM MACHINIST SUPERVISOR OUTSIDE 84 g 840 mL/hr midazolam (VERSED) 100 mg/100 mL in sodium chloride 0.9% (premix) 0-12 mg/hr (0-12 mL/hr), 1 mg/mL, intravenous, Titrated, Starting on Sun08/24/21 at 1600, Until Sun08/24/21 at 2226, Titration Instructions: Titrate, Initial dose: 0.5 mg/hr, Titrate: Up/Down, Titrate by: 1 mg/hr, Every: 30 minutes, Goal: Other (comment), Routine Rate/Dose Change 08/24/2021 4:27 PM MACHINIST SUPERVISOR OUTSIDE 4 mg/hr 4 mL/hr New Bag 08/24/2021 4:09 PM MACHINIST SUPERVISOR OUTSIDE 3 mg/hr 3 mL/hr niCARdipine (CARDENE) 25,000 [...] mmHg, Routine New Bag 08/24/2021 5:17 PM MACHINIST SUPERVISOR OUTSIDE 0.5 mcg/kg/min 25.2 mL/hr propofol (DIPRIVAN) 10 [...] only, Routine Rate/Dose Change 08/24/2021 5:47 PM MACHINIST SUPERVISOR OUTSIDE 100 mcg/kg/min 50.3 mL/hr Rate/Dose Change 08/24/2021 5:23 PM MACHINIST SUPERVISOR OUTSIDE 80 mcg/kg/min 40.3 mL/hr New Bag 08/24/2021 3:37 PM MACHINIST SUPERVISOR OUTSIDE 50 mcg/kg/min 25.2 mL/hr propofoL (DIPRIVAN) 10 [...] at 1546 New Bag 08/24/2021 4:50 PM MACHINIST SUPERVISOR OUTSIDE 250 mL/hr 250 mL/hr sodium chloride 0.9% [...] must be ventilated. Given 08/24/2021 3:36 PM MACHINIST SUPERVISOR OUTSIDE 120 mg documented in this encounter Discontinued [...] Recently Administered Medications Times are shown in MACHINIST SUPERVISOR OUTSIDE. Scheduled Medication Order 08/22/2021 08/23/2021 08/24/2021 dexAMETHasone [...]
--- OUTSIDE RECORDS SUMMARY | 2024-06-27 10:33 | XMS_ITS | Encounter Summary ---
Author Organization [facility] Address [address] [place] [address] Phone Care Team Providers Care Occupational Health And Safety Adviser Name Role Phone Unavailable Primary Care Provider Unavailabl e Encounter Details Date Type Department Care Team (Late st Contact Info) Description 08/29/2021 Orders Only [facility] Gastroenterology [address] [facility] 8th [place] [address] [place] [id number] Bibi Greene, REJI Social History Tobacco Use [...]
--- OUTSIDE RECORDS SUMMARY | 2024-06-27 10:33 | XMS_ITS | Encounter Summary ---
Author Organization [facility] Healthcare Address [address] [place] [address] Care Team Providers Care Manager Mining Name Role Phone Unavailable Primary Care Provider Unavailabl e Reason for Referral * Diagnostic Imaging (Routine) - Closed Specialty Diagnoses / Procedures Referred By Contac t Referred To Contact Diagnoses Alcoholic cirrhosis of liver with ascites (CMS/HCC) (HCC) Procedures US Abdomen Limited Romeo Mahoney MD [address] [address] Phone: tel: fax: [address] [phone] Referral ID Status Reason Start Date Expiration Date Visits Re quested Visits Authorized [id number] Closed 01/13/2021 02/12/2022 1 1 Reason for Visit * Diagnostic Imaging (Routine) - Closed Specialty Diagnoses / Procedures Referred By Contac t Referred To Contact Diagnoses Alcoholic cirrhosis of liver with ascites (CMS/HCC) (HCC) Procedures US Abdomen Limited Romeo Mahoney MD [address] [address] Phone: tel: fax: [address] [phone] Referral ID Status Reason Start Date Expiration Date Visits Re quested Visits Authorized [id number] Closed 01/13/2021 02/12/2022 1 1 Encounter Details Date Type Department Care Team (Latest Contact Info) Description 02/04/2021 9:59 AM CDT - 02/04/2021 11:59 PM CDT Hospital Encounter [address] [address] Alcoholic cirrhosis of liver with ascites (CMS/HCC) [...] D: ??02/04/2021 2:25 PM T: Report ID: [id number] Reading Location: ??[id number] Procedure Note Josep Nassar MD - 02/04/2021 [...] Josep Nassar M.D. AT T: Report ID: [id number] Reading Location: [place] [address] Romeo Mahoney MD IM US PROCEDURES Jasmin l Result documented in this encounter Visit Diagnoses Diagnosis Alcoholic cirrhosis of liver with ascites (CMS/HCC) (HCC) documented in this encounter
--- OUTSIDE RECORDS SUMMARY | 2024-06-27 10:33 | XMS_ITS | Encounter Summary ---
Author Organization [facility] Group Address [address] [place] [address] Care Team Providers Care Engine Emission Technician Name Role Phone Unavailable Primary Care Provider Unavailabl e Encounter Details Date Type Department Care Team ([facility] st Contact Info) Description 08/24/2021 Telephone [facility] Accountable Care Organization [address] [place] [address] Tara Chand, RN [address] [facility] [address] [address] Social History Tobacco Use Types Packs/Day Years [...] Chand RN - 08/30/2021 2:[address] [facility]- called Ronda at [facility] for an update - and unable to reach her- pt is still on Essence log in ICU at [facility]- Tara Chand RN, BSN [facility] Machine Binder Stripper for High Risk [phone] * Telephone Encounter - Tara Chand RN - 08/25/2021 1:[address] [facility]- to [facility]- emergent tx 08/24/21-pt intubated- [facility]: unstable vital signs acute cerebrovascular accident (CVA) 4.8 cm intraparenchymal hematoma left parietooccipital lobe with surrounding edema and effacement of posterior aspect left lateral ventricle. No midline shift. Has a sister- Tara Chand RN, CHRYSTAL [facility] Machine Binder Stripper for High Risk [phone] NISTRATIVE CLERK * Telephone Encounter - Tara Chand RN - 08/24/2021 2:[address] [facility]- ER 08/24/21- BME- w/u cont- [facility]: EMS for suicide attempt. Per EMS, [...] to er determination- Tara Chand RN, MACIELN [facility] Machine Binder Stripper for High Risk [phone] NISTRATIVE CLERK documented in this encounter Plan of Treatment Not on file documented as of this encounter Visit Diagnoses Not on filedocumented in this encounter
--- OUTSIDE RECORDS SUMMARY | 2024-06-27 10:33 | XMS_ITS | Encounter Summary ---
Author Organization [facility] Healthcare Address [address] [place] [address] Care Team Providers Care Donor Processor Name Role Phone Michelle Delcid MD Primary Care Provider [phone] Reason for Visit * Auth/Cert Specialty Diagnoses / Procedures Referred By Hoang leroy Referred To Contact Diagnoses Hepatic cirrhosis, unspecified hepatic cirrhosis type, unspecified whether ascites present (HCC) Hepatic cirrhosis, unspecified hepatic cirrhosis type, unspecified whether ascites present (HCC) [K74.60] Procedures PA EGD BAND LIGATION ESOPHGEAL/GASTRIC VARICES ESOPHAGOGASTRODUODENOSCOPY Referral ID Status Reason Start Date Expiration Date Visits Re quested Visits Authorized [id number] 1 1 Encounter Details Date Type Department Care Team (Latest Contact Info) Description 05/04/2022 9:30 AM STATION INSPECTOR - 05/04/2022 10:00 AM STATION INSPECTOR Surgery [facility] Digestive Disease [place] [id number] [facility] [address] [place] [address] Melody Lilly MD [address] [facility] [address] [place] [address] ESOPHAGOGASTRODUODENOSCOPY BIOPSY Surgery Details Date/Time Status Location OR Service Patient Class Case Class Case Type Trauma Case? 05/04/2022 9:30 AM Posted [facility] ENDOSCOPY ERCP 02 Gastroenterology Outpatient Elective Panel [...] Comments Blood Pressure 139/68 05/04/2022 9:53 AM STATION INSPECTOR Pulse 93 05/04/2022 9:53 AM STATION INSPECTOR Temperature 36 ??C (96.8 ??F) 05/04/2022 9:53 AM STATION INSPECTOR Respiratory Rate 15 05/04/2022 9:53 AM STATION INSPECTOR Oxygen Saturation 91% 05/04/2022 9:53 AM STATION INSPECTOR Inhaled Oxygen Concentration - - Weight 95.3 kg (210 lb) 05/04/2022 8:43 AM STATION INSPECTOR Height 182.9 cm (6') 05/04/2022 8:43 AM STATION INSPECTOR Body Mass Index 28.48 05/04/2022 8:43 AM STATION INSPECTOR documented in this encounter Medications at Time [...] planned procedure for the reasons stated above. ION INSPECTOR documented in this encounter Procedure Notes * Melody Lilly MD - 05/04/2022 9:16 AM CSTAssociated Order(s): EGD GI ENDOSCOPY [facility] Patient Name: Jared Brumfield Procedure Date: 05/04/2022 9:16 AM Date of : 1970 Admit Type: Outpatient Age: 51 Gender: Male Attending MD: Melody Lilly M.D. Room: [facility] ENDOSCOPY ROOM 2 Note Status: Finalized [...] On: 05/04/2022 9:16 AM Recognized by the [place] for promoting quality in endoscopy ION INSPECTOR documented in this encounter Miscellaneous Notes * Result Encounter Note - Melody Lilly MD - 05/04/2022 10:50 AM STATION INSPECTOR Please call patient and notify biopsy results being benign. No H pylori noted, repeat EGD in 6 months ION INSPECTOR documented in this encounter Plan of Treatment Not on file documented as of this encounter Procedures Procedure Name Priority Date/Time Associated Diagnosis Comments SURGICAL PATHOLOGY Routine 05/04/2022 9:42 AM STATION INSPECTOR Hepatic cirrhosis, unspecified hepatic cirrhosis type, unspecified whether ascites present (HCC) ESOPHAGOGASTRODUODENOSCOPY BIOPSY 05/04/2022 9:27 AM STATION INSPECTOR Hepatic cirrhosis, unspecified hepatic cirrhosis type, unspecified whether ascites present (HCC) Special Needs variceal banding if needed EGD 05/04/2022 9:16 AM STATION INSPECTOR documented in this encounter Results * Surgical pathology (05/04/2022 9:42 AM STATION INSPECTOR) Tissue (Gastric/Stomach biopsy) 05/04/2022 9:42 AM STATION INSPECTOR Narrative PATHOLOGY [facility] - 05/05/2022 11:16 AM STATION INSPECTOR EPIC results best viewed via link to PDF [facility] of Surgical Pathology [address] [facility], [place] [address] Note to Patients: This report may contain [...] Gender: ??M : ??1970 (Age: 51) Address: ??[address] [place] [address] Hospital #: ??[id number] Taken:05/04/2022 Received:05/04/2022 Reported: 05/05/2022 Patient Type: [facility] SDS ?? Service: Gastroenterology Location: Physician(s): ??Melody Lilly M.D. Michelle Delcid M.D. Romeo Mahoney M.D. Diagnosis: Stomach, biopsy ? - Antral and oxyntic gland mucosa with rare moderately dilated intramucosal capillary vessels, other no significant histopathologic abnormality ? - No H. pylori-like microorganisms identified (H&E) [facility]/05/05/2022 11:16 By this signature, I attest that [...] Surgical Pathology and Flow Cytometry Departments at [facility] as part of an ongoing senior software quality analyst program and in compliance with [...] Surgical Pathology and Flow Cytometry Departments of [facility]. ??It has not been cleared or approved by the U. S. Food and Drug Administration. IMAGES AND SCANNED DOCUMENTS, IF INCLUDED, ONLY VIEWABLE IN PDF VERSION OF REPORT us Melody Lilly MD LAB PATHOLOGY ORDERABL ES Final Result PATHOLOGY [facility] 3rd Floor [place], [place] [phone] * EGD (05/04/2022 9:16 AM STATION INSPECTOR) Anatomical Region Laterality Modality Other Narrative Procedure Note Melody Lilly MD - 05/04/2022 9:16 AM CST GI ENDOSCOPY [facility] Patient Name: Jared Brumfield Procedure Date: 05/04/2022 9:16 AM Date of : 1970 Admit Type: Outpatient Age: 51 Gender: Male Attending MD: Melody Lilly M.D. Room: [facility] ENDOSCOPY ROOM 2 Note Status: Finalized Procedure: Upper GI endoscopy Indications: H/o Chornic liver disease/Cirrhosis, variceal surveillance, need FU Referring MD: Romeo Mahoney M.D. Providers: Meloyd Lilly M.D. Medicines: Monitored Anesthesia Care Complications: [...] passed under direct vision. The [id number] endoscope was introduced through the mouth, and [...] On: 05/04/2022 9:16 AM Recognized by the [place] for promoting quality [...] Pre-Procedure (GI) Rate/Dose Verify 05/04/2022 9:26 AM STATION INSPECTOR 30 mL/hr New Bag 05/04/2022 8:44 AM STATION INSPECTOR 30 mL/hr 30 mL/hr documented in this [...] Recently Administered Medications Times are shown in STATION INSPECTOR. Continuous Medication Order 05/02/2022 05/03/2022 05/04/2022 sodium [...] 05/04/2022 documented in this encounter Care Teams Donor Processor Relationship Specialty Start Date End Date Michelle Delcid MD [address] [place] [address] PCP - General Family Medicine 04/27/22 documented as of this encounter
--- OUTSIDE RECORDS SUMMARY | 2024-06-27 10:33 | XMS_ITS | Encounter Summary ---
Author Organization [facility] Address [address] [place] [address] Phone Care Team Providers Care Capacity Manager Name Role Phone Unavailable Primary Care Provider Unavailabl e Reason for Referral * Diagnostic Imaging (Routine) - Closed Specialty Diagnoses / Procedures Referred By Contaguilar t Referred To Contact Diagnoses Alcoholic cirrhosis of liver with ascites (CMS/HCC) (HCC) Procedures US Abdomen Limited Romeo Mahoney MD 1 [facility] [address] [place] [address] Phone: tel: fax: [address] [phone] Referral ID Status Reason Start Date Expiration Date Visits Re quested Visits Authorized [id number] Closed 06/29/2020 07/29/2021 1 1 OLOGY LAB TECHNICIAN Reason for Visit * Reason Onset Date Comments Schedule Ultrasound 06/28/2020 Encounter Details Date Type Department Care Team (Late st Contact Info) Description 06/28/2020 Telephone [facility] Gastroenterology [address] [place] [address] 8th [place] [address] [place] [address] Henrietta Thomas Schedule Ultrasound Social [...] with Chester and have him scheduled at [facility] on 07.06.2020 at 12:15pm. He is awre to fast for 6 hours prior. I am also mailing him an appt remninder. OLOGY LAB TECHNICIAN * Telephone Encounter - Henrietta Thomas - 06/28/2020 2:07 PM CST I called Chester at [phone], I was unable to reach him. I LMOR for a return call. ----- Message from Bibi Greene RN sent at 04/12/2020 9:38 AM CDT ----- Regarding: ultrasound of liver for HCC screen [facility] patient needs ultrasound of liver for hCC screen. OLOGY LAB TECHNICIAN OLOGY LAB TECHNICIAN documented in this encounter Plan of Treatment Not on file documented as of this encounter Results * US Abdomen Limited (07/06/2020 11:54 AM PATHOLOGY LAB TECHNICIAN) Anatomical Region Laterality Modality Abdomen N/A Ultrasound 07/06/2020 3:54 PM PATHOLOGY LAB TECHNICIAN Narrative 07/06/2020 3:59 PM PATHOLOGY LAB TECHNICIAN Patient Name: CHESTER BRUMFIELD JR ?Ordering Dr: Romeo Mahoney MD ?? D.O.B: 1970 ? Exam Date: 07/06/20 ?? 1154 ?? Age: 50 ?Sex: Male ? MR#: [id number] ?? Loc: ? RADIOLOGY REPORT ?? Order #[id number] ?? Ultrasound ? US Abdomen/Lmt Exam Spec [...] 3:59 PM ?? T: ? Report ID: [id number] ?? Reading Location: ??[id number] ? REPORT ELECTRONICALLY SIGNED IN OTHER VENDOR SYSTEM ?? Resulting Agency Comment O Procedure Note Mendoza Chand MD - 07/06/2020 Patient Name: CHESTER BRUMFIELD Dr: Romeo Mahoney MD D.O.B: 1970 Exam Date: 07/06/20 1154 Age: 50 Sex: Male MR#: [id number] Loc: [facility]#: [id number] RADIOLOGY REPORT Order #[id number] Ultrasound US Abdomen/Lmt Exam Spec Organ Signed [...] signed by Mendoza SEVILLA T: Report ID: [id number] Reading Location: [id number] REPORT ELECTRONICALLY SIGNED IN OTHER VENDOR SYSTEM Romeo Mahoney MD [facility] US PROCEDURES Jasmin l Result documented in this encounter Visit Diagnoses Diagnosis Alcoholic cirrhosis of liver with ascites (CMS/HCC) (HCC)- Primary Alcoholic cirrhosis of liver with ascites (CMS/HCC) (HCC) documented in this encounter Additional Health Concerns Infection Onset Date Last Indicated Resolved Time 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
--- OUTSIDE RECORDS SUMMARY | 2024-06-27 10:33 | XMS_ITS | Encounter Summary ---
Author Organization [facility] Address [address] [place] [address] Phone Care Team Providers Care Education And Training Manager Name Role Phone Unavailable Primary Care Provider Unavailabl e Reason for Referral * Diagnostic Imaging (Routine) - Closed Specialty Diagnoses / Procedures Referred By Contac t Referred To Contact Diagnoses SOB (shortness of breath) Generalized abdominal discomfort Procedures US Abdomen Limited Romeo Mahoney MD [facility] [address] [place] [address] Phone: tel: fax: [address] [phone] Referral ID Status Reason Start Date Expiration Date Visits Re quested Visits Authorized [id number] Closed 09/28/2020 10/28/2021 1 1 Encounter Details Date Type Department Care Team (Late st Contact Info) Description 09/28/2020 Telephone [facility] Gastroenterology [address] [facility] 8th [place] [address] [place] [address] Henrietta Thomas Social History Tobacco [...] with Chester and have him scheduled at [facility] in [place] on 10.07.2020 at 12:50 pm. He isaware to fast for this exam. I am also mailing him an appt reminder. I also explained that if his symptoms worsen to go to the ED for eval and to call our office. He verbalized understanding. ----- Message from Bibi Greene RN sent at 09/27/2020 2:06 PM CDT ----- Regarding: ultrasound of liver [facility] patient needs ultrasound of liver to eval [...] ?? Age: 50 ?Sex: Male ? MR#: [id number] ?? Loc: ? RADIOLOGY REPORT ?? Order #[id number] ?? Ultrasound ? US Abdomen/Lmt Exam Spec [...] 12:23 PM ?? T: ? Report ID: [id number] ?? Reading Location: ??[id number] ? REPORT ELECTRONICALLY SIGNED IN OTHER VENDOR SYSTEM ?? Resulting Agency Comment O Procedure Note Javier Wilkes MD - 10/07/2020 Patient Name: CHESTER BRUMFIELD Dr: Romeo Mahoney MD D.O.B: 1970 Exam Date: 10/07/20 1202 Age: 50 Sex: Male MR#: [id number] Loc: RADIOLOGY REPORT Order #[id number] Ultrasound US Abdomen/Lmt Exam Spec Organ Signed [...] Javier Wilkes M.D. AB T: Report ID: [id number] Reading Location: [id number] REPORT ELECTRONICALLY SIGNED IN OTHER VENDOR SYSTEM [...]
--- OUTSIDE RECORDS SUMMARY | 2024-06-27 10:33 | XMS_ITS | Encounter Summary ---
Author Organization [facility] Address [address] [place] [address] Phone Care Team Providers Care Circulating Process Inspector Name Role Phone Unavailable Primary Care Provider Unavailabl e Encounter Details Date Type Department Care Team (Late st Contact Info) Description 09/10/2020 Orders Only [facility] Gastroenterology [address] 8[address] [place] [address] [place] [id number] Bibi Greene, REJI Hepatic encephalopathy (CMS/HCC) (Primary [...]
--- OUTSIDE RECORDS SUMMARY | 2024-06-27 10:33 | XMS_ITS | Encounter Summary ---
Author Organization [facility] Address [address] [address] Care Team Providers Care Band Ripsaw Operator Name Role Phone Unavailable Primary Care Provider Unavailabl e Reason for Visit * Reason Onset Date Comments Restless Legs 11/08/2020 Encounter Details Date Type Department Care Team ([facility] Contact Info) Description 11/08/2020 Telephone [facility] Primary Care [address] [place] [phone] Aileen Olmstead PA [address] [place] [address] Restless Legs Social History Tobacco [...] 11:47 AM CDT Patient advised. Transferred to lead front end developer to schedule. * Telephone Encounter - Aileen [...]
--- OUTSIDE RECORDS SUMMARY | 2024-06-27 10:33 | XMS_ITS | Encounter Summary ---
Author Organization [facility] Address [address] [place] [address] Care Team Providers Care Crystal Grower Name Role Phone Unavailable Primary Care Provider Unavailabl e Reason for Referral * Diagnostic Imaging (Routine) - Closed Specialty Diagnoses / Procedures Referred By Contac t Referred To Contact Diagnoses Alcoholic cirrhosis of liver with ascites (CMS/HCC) (HCC) Procedures US Abdomen Limited Romeo Mahoney MD [id number] [place] [address] Phone: tel: fax: [address] [phone] Referral ID Status Reason Start Date Expiration Date Visits Re quested Visits Authorized [id number] Closed 06/29/2020 07/29/2021 1 1 L TEMPLATE MAKER Encounter Details Date Type Department Care Team (Late st Contact Info) Description 07/06/2020 11:49 AM METAL TEMPLATE MAKER Hospital Encounter [facility] OP INTERIM Romeo Mahoney MD [address] [facility] [address] [place] [address] Alcoholic cirrhosis of liver with ascites (CMS/HCC) [...] Read Routine (OP Routine) 07/06/2020 11:54 AM METAL TEMPLATE MAKER Alcoholic cirrhosis of liver with ascites (CMS/HCC) documented in this encounter Results * US Abdomen Limited (07/06/2020 11:54 AM METAL TEMPLATE MAKER) Anatomical Region Laterality Modality Abdomen N/A Ultrasound 07/06/2020 3:54 PM METAL TEMPLATE MAKER Narrative 07/06/2020 3:59 PM METAL TEMPLATE MAKER Patient Name: CHESTER BRUMFIELD ?Ordering Dr: Romeo Mahoney MD ?? D.O.B: 1970 ? Exam Date: 07/06/20 ?? 1154 ?? Age: 50 ?Sex: Male ? MR#: [id number] ?? Loc: ? RADIOLOGY REPORT ?? Order #[id number] ?? Ultrasound ? US Abdomen/Lmt Exam Spec [...] 3:59 PM ?? T: ? Report ID: [id number] ?? Reading Location: ??[id number] ? REPORT ELECTRONICALLY SIGNED IN OTHER VENDOR SYSTEM ?? Resulting Agency Comment O Procedure Note Mendoza Chand MD - 07/06/2020 Patient Name: CHESTER BRUMFIELD Dr: Romeo Mahoney MD D.O.B: 1970 Exam Date: 07/06/20 1154 Age: 50 Sex: Male MR#: [id number] Loc: RADIOLOGY REPORT Order #[id number] Ultrasound US Abdomen/Lmt Exam Spec Organ Signed [...] Mendoza Chand M.D. 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
--- OUTSIDE RECORDS SUMMARY | 2024-06-27 10:33 | XMS_ITS | Encounter Summary ---
Author Organization [facility] Healthcare Address [address] [place] [id number] Care Team Providers Care Vice President [employer] Name Role Phone Jayne Bowen MD Primary Care Provider + Encounter Details Date Type Department Care Team (Late st Contact Info) Description 12/30/2019 6:40 PM CDT - 01/04/2020 11:25 AM CDT Hospital Encounter [facility] ADMIT Unknown, Bibi Herman DO [address] [facility] [place] [address] Discharge Disposition: Discharge to home, [...] CDT) Sodium 136 135 - 145 mmol/L [facility] Potassium 4.0 3.3 - 5.1 mmol/L [facility] Chloride 107 96 - 108 mmol/L [facility] Carbon Dioxide 24 22 - 32 mmol/L [facility] Anion Gap 5(L) 7 - 16 [facility] Glucose 119(H) 70 - 100 mg/dL [facility] BUN 6(L) 8 - 25 mg/dL [facility] Creatinine 0.6 0.5 - 1.3 mg/dL [facility] Comment: NOTE: Estimated GFR (Cockroft-Gault) will NOT be calculated unless patient Height and Weight were entered. Also, Kidney Disease Stage (GFR) and Estimated GFR (Cockroft-Gault) will NOT be calculated if Creatinine result is <0.2. Kidney Disease Stage >90 mL/MIN [facility] Comment: NOTE; ??The GFR is an [...] on dialysis Est GFR (Cockcroft-G) 168 ml/MIN [facility] Comment: Estimated GFR(Cockroft-Gault)is used to calculate patient medication dosage Calcium 7.5(L) 8.6 - 10.3 mg/dL [facility] Total Protein 5.9(L) 6.4 - 8.3 g/dL [facility] Albumin 1.7(L) 3.5 - 5.0 g/dL [facility] Globulin 4.2(H) 2.3 - 3.5 gm/dL [facility] Albumin/Globulin Ratio 0.4(L) 1.1 - 1.8 [facility] Total Bilirubin 1.5(H) 0.0 - 1.2 mg/dL [facility] AST 93(H) 0 - 40 U/L [facility] ALT 33 0 - 41 U/L [facility] Alkaline Phosphatase 113 40 - 129 U/L [facility] 01/03/2020 6:49 AM CDT 01/03/2020 6:53 AM CDT Narrative Resulting Agency Comment IN Bibi Crews DO LAB BLOOD ORDERABLES Final Re sult Performing Organization Address City/[facility]/ZIP Co de Phone Number [address] [phone] * (ABNORMAL) Ammonia (01/03/2020 6:49 AM CDT) AMMONIA 103(H) 9 - 85 ug/dL [facility] 01/03/2020 6:49 AM CDT 01/03/2020 6:53 AM CDT Narrative Resulting Agency Comment IN Bibi PrettyDenis Crews LAB BLOOD ORDERABLES Final Re sult Performing Organization Address [facility] Co de Phone Number [address] [phone] * (ABNORMAL) CBC with auto differential (01/03/2020 6:49 AM CDT) Pathologist [facility] WBC 4.3 3.8 - 9.9 X10 3/ul [facility] RBC 3.07(L) 4.30 - 5.80 x10 6/ul [facility] Hemoglobin 9.7(L) 13.0 - 17.5 g/dL [facility] Hct 29.8(L) 38.9 - 50.3 % [facility] MCV 97.1(H) 81.3 - 96.4 fl [facility] MCH 31.6 27.1 - 33.3 pg [facility] MCHC 32.6 32.3 - 35.7 g/dl [facility] RDW 19.5(H) 11.1 - 14.9 % [facility] Plt Count 112(L) 150 - 400 x10 3/ul [facility] MPV 9.7 9.1 - 12.3 fl [facility] Neut % 54.6 % [facility] Immature Gran % 0.2 % [facility] Lymph % 23.9 % [facility] [place] % 17.1 % [facility] Eos % 3.5 % [facility] AUTO BASO % 0.7 % [facility] NEUTROPHIL ABS # 2.3 1.7 - 6.5 x10 3/ul [facility] Immature Gran # 0.0 0.0 - 0.1 x10 3/ul [facility] Absolute Lymphs (auto) 1.0 0.8 - 3.3 x10 3/ul [facility] Absolute Monos (auto) 0.7 0.2 - 0.8 x10 3/ul [facility] Absolute Eos (auto) 0.2 0.0 - 0.5 x10 3/ul [facility] BASOPHIL ABS # 0.0 0.0 - 0.1 x10 3/ul [facility] Nucleat RBC Rel Count 0.0 #/100WBC [facility] NRBC abs 0.00 0.00 - 0.01 x10 3/ul [facility] Absolute Neutrophils 2,300 200 - 8,000 /ul [facility] 01/03/2020 6:4 9 AM CDT 01/03/2020 6:53 AM CDT Narrative Resulting Agency Comment IN us Bibi Crews DO LAB BLOOD ORDERABLES Final Re sult [facility] [address] [place] [address], [facility] [phone] * SCAN - LABS (01/03/2020 12:00 AM CDT) Narrative 01/03/2020 12:00 AM CDT Ordered by an unspecified provider. us Historical Provider Final Res ult * (ABNORMAL) Lipase (01/02/2020 4:37 AM CDT) Lipase 299(H) 13 - 60 U/L [facility] 01/02/2020 4:37 AM CDT 01/02/2020 5:11 AM CDT Narrative Resulting Agency Comment IN Bibi PrettyDenis Mars DO LAB BLOOD ORDERABLES Final Re sult [facility] [address] [place] [address], [facility] [phone] * (ABNORMAL) Comprehensive metabolic panel (01/02/2020 4:37 AM CDT) Pathologist [facility] Sodium 136 135 - 145 mmol/L [facility] Potassium 3.9 3.3 - 5.1 mmol/L [facility] Chloride 106 96 - 108 mmol/L [facility] Carbon Dioxide 25 22 - 32 mmol/L [facility] Anion Gap 5(L) 7 - 16 [facility] Glucose 116(H) 70 - 100 mg/dL [facility] BUN 5(L) 8 - 25 mg/dL [facility] Creatinine 0.5 0.5 - 1.3 mg/dL [facility] Comment: NOTE: Estimated GFR (Cockroft-Gault) will NOT be calculated unless patient Height and Weight were entered. Also, Kidney Disease Stage (GFR) and Estimated GFR (Cockroft-Gault) will NOT be calculated if Creatinine result is <0.2. Kidney Disease Stage >90 mL/MIN [facility] Comment: NOTE; ??The GFR is an [...] on dialysis Est GFR (Cockcroft-G) 196 ml/MIN [facility] Comment: Estimated GFR(Cockroft-Gault)is used to calculate patient medication dosage Calcium 7.5(L) 8.6 - 10.3 mg/dL [facility] Total Protein 5.8(L) 6.4 - 8.3 g/dL [facility] Albumin 1.8(L) 3.5 - 5.0 g/dL [facility] Globulin 4.0(H) 2.3 - 3.5 gm/dL [facility] Albumin/Globulin Ratio 0.5(L) 1.1 - 1.8 [facility] Total Bilirubin 1.7(H) 0.0 - 1.2 mg/dL [facility] AST 109(H) 0 - 40 U/L [facility] ALT 38 0 - 41 U/L [facility] Alkaline Phosphatase 105 40 - 129 U/L [facility] 01/02/2020 4:37 AM CDT 01/02/2020 5:11 AM CDT Narrative Resulting Agency Comment IN us Bibi Crews DO LAB BLOOD ORDERABLES Final Re sult [facility] [address] [place] [address], [facility] [phone] * (ABNORMAL) CBC with auto differential (01/02/2020 4:37 AM CDT) WBC 4.9 3.8 - 9.9 X10 3/ul [facility] Comment: Results reviewed RBC 2.91(L) 4.30 - 5.80 x10 6/ul [facility] Hemoglobin 9.3(L) 13.0 - 17.5 g/dL [facility] Hct 28.5(L) 38.9 - 50.3 % [facility] MCV 97.9(H) 81.3 - 96.4 fl [facility] MCH 32.0 27.1 - 33.3 pg [facility] MCHC 32.6 32.3 - 35.7 g/dl [facility] RDW 19.3(H) 11.1 - 14.9 % [facility] Plt Count 125(L) 150 - 400 x10 3/ul [facility] MPV 9.6 9.1 - 12.3 fl [facility] Neut % 53.8 % [facility] Immature Gran % 0.2 % [facility] Lymph % 24.7 % [facility] [place] % 15.8 % [facility] Eos % 4.9 % [facility] AUTO BASO % 0.6 % [facility] NEUTROPHIL ABS # 2.7 1.7 - 6.5 x10 3/ul [facility] Immature Gran # 0.0 0.0 - 0.1 x10 3/ul [facility] Absolute Lymphs (auto) 1.2 0.8 - 3.3 x10 3/ul [facility] Absolute Monos (auto) 0.8 0.2 - 0.8 x10 3/ul [facility] Absolute Eos (auto) 0.2 0.0 - 0.5 x10 3/ul [facility] BASOPHIL ABS # 0.0 0.0 - 0.1 x10 3/ul [facility] Nucleat RBC Rel Count 0.0 #/100WBC [facility] NRBC abs 0.00 0.00 - 0.01 x10 3/ul [facility] Absolute Neutrophils 2,700 200 - 8,000 /ul [facility] 01/02/2020 4:37 AM CDT 01/02/2020 5:11 AM CDT Narrative Resulting Agency Comment IN Bibi Crews DO LAB BLOOD ORDERABLES Final Re sult Performing Organization Address City/[facility]/ZIP Co de Phone Number [address] [phone] * COVID-19 Coronavirus RNA (01/02/2020 3:35 AM CDT) COVID-19 Coronavirus RNA NOT DETECTED [facility] Comment: A negative result does not rule out the possibility of COVID-19 and should not be used as the sole basis for patient management decisions. Coronavirus (COVID-19) Interp SEE COMMENT [facility] Coronavirus (COVID-19) Results called to TNP [facility] Misc Performing Lab [facility] 01/02/2020 3:35 AM CDT 01/02/2020 4:44 AM CDT Narrative [facility] - 01/02/2020 3:36 PM CDT Screening for emergent/scheduled (< 12hr) surg or procedure N Resulting Agency Comment IN Bibi Crews DO LAB MICROBIOLOGY - GENERAL OR DERABLES Final Result Performing Organization Address City/[facility]/ZIP Co de Phone Number [address] [phone] * US Guided Paracentesis (12/31/2019 9:57 PM CDT) Anatomical Region Laterality Modality Abdomen N/A Ultrasound 12/31/2019 10:5 5 AM CDT Narrative 12/31/2019 11:45 AM CDT Patient Name: JARED BRUMFIELD JR ?Ordering Dr: Cindy Douglas MD ?? D.O.B: 1970 ? Exam Date: 12/30/ ?? 2157 ?? Age: 49 ?Sex: Male ? MR#: [id number] ?? Loc: ??C142-01 ? RADIOLOGY REPORT ?? Order #[id number] ?? Ultrasound ? US Guided Paracentesis in [...] deeper ?? tissues. ??Under ultrasound guidance, a 5-Nauruan 7 cm One Step Centesis ?? catheter [...] 11:45 AM ?? T: ? Report ID: [id number] ?? Reading Location: ??[id number] ? REPORT ELECTRONICALLY SIGNED IN OTHER VENDOR SYSTEM ?? Resulting Agency Comment I Procedure Note Cam Zepeda MD - 12/31/2019 Patient Name: GER BRUMFIELDDIRK Chowdhury Dr: Cindy Douglas MD DDenisO.B: 1970 Exam Date: 12/31/192156 Age: 49 Sex: Male MR#: [id number] Loc: C142-01 RADIOLOGY REPORT Order #[id number] Ultrasound US Guided Paracentesis in US Signed [...] and deeper tissues. Under ultrasound guidance, a 5-Nauruan 7 cm One Step Centesis catheter was [...] by Cam Weeks M.D. T: Report ID: [id number] Reading Location: [id number] REPORT ELECTRONICALLY SIGNED IN OTHER VENDOR SYSTEM us Cindy Douglas MD IMG US PROCEDURES Final R esult * Anaerobic culture Fluid Ascites (12/31/2019 10:00 AM CDT) CULTURE ANAEROBIC NO ANAEROBIC GROWTH DAY 5 [facility] Fluid (Ascites) 12/31/2019 1 0:00 AM CDT 12/31/2019 10:34 AM CDT Narrative [facility] - 01/05/2020 7:32 AM CDT Container [...] ORDER WILLIAN Final Result Performing Organization Address [facility] Co de Phone Number [address] [phone] * Body Fluid Culture (12/31/2019 10:00 AM CDT) CULTURE BODY FLUID NO GROWTH AFTER 3 DAYS [facility] Fluid (Ascites) 12/31/2019 1 0:00 AM CDT 12/31/2019 10:34 AM CDT Narrative [facility] - 01/05/2020 7:32 AM CDT Container [...] ORDERABLES Final Resul t Performing Organization Address [facility]/[place] [address], [facility] [phone] * Gram stain Fluid Ascites (12/31/2019 10:00 AM CDT) GRAM STAIN NO ORGANISMS SEEN FEW-MOD WBC [facility] Fluid (Ascites) 12/31/2019 1 0:00 AM CDT 12/31/2019 10:34 AM CDT Narrative [facility] - 01/05/2020 7:32 AM CDT Container [...] MICROBIOLOGY - GENERAL ORDER WILLIAN Final Result [address] [phone] * (ABNORMAL) Ammonia (12/31/2019 5:07 AM CDT) AMMONIA 119(H) 9 - 85 ug/dL [facility] 12/31/2019 5:07 AM CDT 12/31/2019 5:13 AM CDT Narrative Resulting Agency Comment IN Thais Peña NP LAB BLOOD ORDERABLES Final Resul t [address] [phone] * (ABNORMAL) Lipase (12/31/2019 5:07 AM CDT) Lipase 537(H) 13 - 60 U/L [facility] 12/31/2019 5:07 AM CDT 12/31/2019 5:13 AM CDT Narrative Resulting Agency Comment IN us Thais Peña RN CLINICAL RESEARCH LAB BLOOD ORDERABLES Final Resul t Performing Organization Address City/[facility]/ZIP Co de Phone Number [address] [phone] * (ABNORMAL) Amylase (12/31/2019 5:07 AM CDT) Amylase 252(H) 28 - 100 U/L [facility] 12/31/2019 5:07 AM CDT 12/31/2019 5:13 AM CDT Narrative Resulting Agency Comment IN us Thais Peña NP LAB BLOOD ORDERABLES Final Resul t Performing Organization Address [facility] de Phone Number [address] [phone] * (ABNORMAL) Hepatic function panel (12/31/2019 5:07 AM CDT) Total Protein 5.6(L) 6.4 - 8.3 g/dL [facility] Albumin 1.8(L) 3.5 - 5.0 g/dL [facility] Globulin 3.8(H) 2.3 - 3.5 gm/dL [facility] Albumin/Globulin Ratio 0.5(L) 1.1 - 1.8 [facility] Total Bilirubin 2.7(H) 0.0 - 1.2 mg/dL [facility] Direct Bilirubin 1.20(H) 0.00 - 0.25 mg/dL [facility] AST 132(H) 0 - 40 U/L [facility] ALT 40 0 - 41 U/L [facility] Alkaline Phosphatase 86 40 - 129 U/L [facility] 12/31/2019 5:07 AM CDT 12/31/2019 5:13 AM CDT Narrative Resulting Agency Comment IN us Thais Peña RN CLINICAL RESEARCH LAB BLOOD ORDERABLES Final Resul t [facility] [address] [place] [address], [facility] [phone] * (ABNORMAL) Basic metabolic panel (12/31/2019 5:07 AM CDT) Sodium 135 135 - 145 mmol/L [facility] Potassium 3.6 3.3 - 5.1 mmol/L [facility] Chloride 105 96 - 108 mmol/L [facility] Carbon Dioxide 25 22 - 32 mmol/L [facility] Anion Gap 5(L) 7 - 16 [facility] Glucose 117(H) 70 - 100 mg/dL [facility] BUN 9 8 - 25 mg/dL [facility] Creatinine 0.6 0.5 - 1.3 mg/dL [facility] Comment: The specimen is icteric. A high bilirubin level is known to cause a false decrease in measured creatinine. NOTE: Estimated GFR (Cockroft-Gault) will NOT be calculated unless patient Height and Weight were entered. Also, Kidney Disease Stage (GFR) and Estimated GFR (Cockroft-Gault) will NOT be calculated if Creatinine result is <0.2. Kidney Disease Stage >90 mL/MIN [facility] Comment: NOTE; ??The GFR is an [...] on dialysis Est GFR (Cockcroft-G) 165 ml/MIN [facility] Comment: Estimated GFR(Cockroft-Gault)is used to calculate patient medication dosage Calcium 7.5(L) 8.6 - 10.3 mg/dL [facility] 12/31/2019 5:07 AM CDT 12/31/2019 5:13 AM CDT Narrative Resulting Agency Comment IN Thais Peña RN CLINICAL RESEARCH LAB BLOOD ORDERABLES Final Resul t Performing Organization Address City/State/[facility] Co de Phone Number [facility] [address] [phone] * (ABNORMAL) CBC with auto differential (12/31/2019 5:07 AM CDT) WBC 7.2 3.8 - 9.9 X10 3/ul [facility] Comment: Results reviewed RBC 2.93(L) 4.30 - 5.80 x10 6/ul [facility] Comment: Results reviewed Hemoglobin 9.0(L) 13.0 - 17.5 g/dL [facility] Comment: Results reviewed Hct 27.4(L) 38.9 - 50.3 % [facility] MCV 93.5 81.3 - 96.4 fl [facility] MCH 30.7 27.1 - 33.3 pg [facility] MCHC 32.8 32.3 - 35.7 g/dl [facility] RDW 20.2(H) 11.1 - 14.9 % [facility] Plt Count 137(L) 150 - 400 x10 3/ul [facility] MPV 9.8 9.1 - 12.3 fl [facility] Neut % 63.5 % [facility] Immature Gran % 0.1 % [facility] Lymph % 18.6 % [facility] [place] % 12.7 % [facility] Eos % 4.8 % [facility] AUTO BASO % 0.3 % [facility] NEUTROPHIL ABS # 4.6 1.7 - 6.5 x10 3/ul [facility] Immature Gran # 0.0 0.0 - 0.1 x10 3/ul [facility] Absolute Lymphs (auto) 1.3 0.8 - 3.3 x10 3/ul [facility] Absolute Monos (auto) 0.9(H) 0.2 - 0.8 x10 3/ul [facility] Absolute Eos (auto) 0.4 0.0 - 0.5 x10 3/ul [facility] BASOPHIL ABS # 0.0 0.0 - 0.1 x10 3/ul [facility] Nucleat RBC Rel Count 0.0 #/100WBC [facility] NRBC abs 0.00 0.00 - 0.01 x10 3/ul [facility] Absolute Neutrophils 4,600 200 - 8,000 /ul [facility] 12/31/2019 5:07 AM CDT 12/31/2019 5:13 AM CDT Narrative Resulting Agency Comment IN us Thais Peña RN CLINICAL RESEARCH LAB BLOOD ORDERABLES Final Resul t [facility] [address] [place] [address], [facility] [phone] * (ABNORMAL) Protime-INR (12/31/2019 5:07 AM CDT) PT 23.8(H) 12.2 - 14.8 SECONDS [facility] INR 2.05 [facility] Comment: Recommended Therapeutic range for Oral [...] NP LAB BLOOD ORDERABLES Final Resul t [facility] [address] [place] [address], [facility] [phone] * Drugs of Abuse Screen, Urine without Confirmation (12/30/2019 7:15 PM CDT) Amphetamines NOT DETECTED [facility] Comment: This assay uses 500 ng/mL as a cutoff for a positive result. Barbiturates NOT DETECTED [facility] [facility] Comment: This assay uses 200 ng/mL as a cutoff for a positive result. Urine Fentanyl [facility] DETECTED [facility] Comment: This assay uses 1 ng/mL as a cutoff for a positive result. Benzodiazepines NOT DETECTED [facility] [facility] Comment: This assay uses 100 ng/mL as a cutoff for a positive result. Cannabinoids NOT DETECTED [facility] [facility] Comment: This assay uses 50 ng/mL as a cutoff for a positive result. Cocaine DETECTED [facility] [facility] Comment: This assay uses 150 ng/mL as a cutoff for a positive result. Opiates NOT DETECTED [facility] Comment: This assay uses 300 ng/mL as a cutoff for a positive result. Urine methadone NOT DETECTED [facility] Comment: This assay uses 300 ng/mL as a cutoff for a positive result. Urine phencyclidine plus NOT DETECTED [facility] [facility] Comment: This assay uses 25 ng/mL as a cutoff for a positive result. Oxycodone NOT DETECTED [facility] Comment: This assay uses 100 ng/mL as a cutoff for a positive result. Urine Creatinine/GERMAN 26.0 mg/dL [facility] Comment: If Creatinine is < 40 mg/dL, recollection is suggested. 12/30/2019 7:15 PM CDT 12/30/2019 6:52 PM CDT Narrative [facility] - 12/30/2019 7:15 PM CDT Collected By mkr Resulting Agency Comment ER us Earline GARCIA LAB URINE ORDERABLES Final Resul t [facility] [address] [place] [address], [facility] [phone] * (ABNORMAL) URINALYSIS, COMPLETE W/REFLEX TO CULTURE (12/30/2019 1:19 PM CDT) Ur Collection Type CLEAN CATCH [facility] Ur Culture Indicated? C S NOT INDICATED [facility] Urine Color AMANDA YELLOW [facility] Urine Clarity [facility] Urine Glucose (UA) NORMAL NORMAL mg/dL [facility] Urine Bilirubin NEGATIVE NEGATIVE mg/dl [facility] Urine Ketones NEGATIVE NEGATIVE mg/dL [facility] Ur Specific [place] 1.017 1.005 - 1.025 [facility] Urine Blood 0.2(A) NEGATIVE mg/dl [facility] Urine pH 7.0 5.0 - 8.0 [facility] Urine Protein NEGATIVE NEGATIVE mg/dL [facility] Urine Urobilinogen NORMAL NORMAL mg/dL [facility] Urine Nitrite NEGATIVE NEGATIVE [facility] Ur Leukocyte Esterase NEGATIVE NEGATIVE Jimmy/ul [facility] Ur Microscopic Review Indicated or Ordered [facility] Urine RBC 29 0 - 2 /HPF [facility] Urine WBC 1 0 - 2 /HPF [facility] Urine Mucus RARE /LPF [facility] Hyaline Casts 3 0 - 2 /LPF [facility] 12/30/2019 1:19 PM CDT 12/30/2019 1:28 PM CDT Narrative [facility] - 12/30/2019 1:47 PM CDT Indication(s) for ordering ?? Other - enter in comments CJ Clean catch Resulting Agency Comment ER us Veronica GARCIA LAB URINE ORDERABLES Fin al Result Performing Organization Address City/[facility]/ZIP Co de Phone Number [address] [phone] * Ethanol (12/30/2019 1:17 PM CDT) Pathologist [facility] Ethyl Alcohol <10 mg/dL [facility] Comment: Result may be decreased-specimen uncapped for extended time. % = mg/dL x .001 12/30/2019 1:17 PM CDT 12/30/2019 1:22 PM CDT Narrative [facility] - 12/30/2019 4:46 PM CDT Result may be decreased-specimen uncapped for extended time. Resulting Agency Comment ER us Earline GARCIA LAB BLOOD ORDERABLES Final Resul t Performing Organization Address [facility] Co de Phone Number [address] [phone] * (ABNORMAL) Lipase (12/30/2019 1:17 PM CDT) Pathologist [facility] Lipase 555(H) 13 - 60 U/L [facility] 12/30/2019 1:17 PM CDT 12/30/2019 1:22 PM CDT Narrative Resulting Agency Comment ER us Veronica GARCIA LAB BLOOD ORDERABLES Fin al Result Performing Organization Address City/[facility]/ZIP Co de Phone Number [address] [phone] * (ABNORMAL) Comprehensive metabolic panel (12/30/2019 1:17 PM CDT) Sodium 135 135 - 145 mmol/L [facility] Potassium 3.8 3.3 - 5.1 mmol/L [facility] Chloride 102 96 - 108 mmol/L [facility] [facility] Carbon Dioxide 25 22 - 32 mmol/L [facility] Anion Gap 8 7 - 16 [facility] Glucose 113(H) 70 - 100 mg/dL [facility] BUN 7(L) 8 - 25 mg/dL [facility] Creatinine 0.6 0.5 - 1.3 mg/dL [facility] Comment: The specimen is icteric. ??A high bilirubin level is known to cause a false decrease in measured creatinine. NOTE: Estimated GFR (Cockroft-Gault) will NOT be calculated unless patient Height and Weight were entered. Also, Kidney Disease Stage (GFR) and Estimated GFR (Cockroft-Gault) will NOT be calculated if Creatinine result is <0.2. Kidney Disease Stage >90 mL/MIN [facility] Comment: NOTE; ??The GFR is an [...] on dialysis Est GFR (Cockcroft-G) 173 ml/MIN [facility] Comment: Estimated GFR(Cockroft-Gault)is used to calculate patient medication dosage Calcium 8.3(L) 8.6 - 10.3 mg/dL [facility] Total Protein 7.6 6.4 - 8.3 g/dL [facility] Albumin 2.4(L) 3.5 - 5.0 g/dL [facility] Globulin 5.2(H) 2.3 - 3.5 gm/dL [facility] Albumin/Globulin Ratio 0.5(L) 1.1 - 1.8 [facility] Total Bilirubin 3.6(H) 0.0 - 1.2 mg/dL [facility] AST 198(H) 0 - 40 U/L [facility] ALT 55(H) 0 - 41 U/L [facility] Alkaline Phosphatase 138(H) 40 - 129 U/L [facility] 12/30/2019 1:17 PM CDT 12/30/2019 1:22 PM CDT Narrative Resulting Agency Comment ER Veronica GARCIA LAB BLOOD ORDERABLES Obdulio aguilar Result [facility] [address] [place] [address], [facility] [phone] * Troponin I (12/30/2019 1:17 PM CDT) Troponin I <0.300 0.000 - 0.300 ng/mL [facility] Comment: Reference using HARJIT Chemiluminescence ? Negative: Repeat in 4-6 hours as indicated. 12/30/2019 1:17 PM CDT 12/30/2019 1:22 PM CDT Narrative [facility] - 12/30/2019 4:46 PM CDT Result may be decreased-specimen uncapped for extended time. Resulting Agency Comment ER us Earline GARCIA LAB BLOOD ORDERABLES Final Resul t Performing Organization Address City/[facility]/ZIP Co de Phone Number [address] [phone] * aPTT (12/30/2019 1:17 PM CDT) Pathologist [facility] APTT 36 27 - 36 SECONDS [facility] 12/30/2019 1:17 PM CDT 12/30/2019 1:22 PM CDT Narrative Resulting Agency Comment ER Veronica GARCIA LAB BLOOD ORDERABLES Fin al Result Performing Organization Address [facility] de Phone Number [address] [phone] * (ABNORMAL) Protime-INR (12/30/2019 1:17 PM CDT) Pathologist [facility] PT 21.0(H) 12.2 - 14.8 SECONDS [facility] INR 1.74 [facility] Comment: Recommended Therapeutic range for Oral [...] ORDERABLES Fin al Result Performing Organization Address [facility] Co de Phone Number [address] [phone] * (ABNORMAL) CBC with auto differential (12/30/2019 1:17 PM CDT) WBC 12.3(H) 3.8 - 9.9 X10 3/ul [facility] RBC 3.95(L) 4.30 - 5.80 x10 6/ul [facility] Hemoglobin 12.3(L) 13.0 - 17.5 g/dL [facility] Hct 38.7(L) 38.9 - 50.3 % [facility] MCV 98.0(H) 81.3 - 96.4 fl [facility] MCH 31.1 27.1 - 33.3 pg [facility] MCHC 31.8(L) 32.3 - 35.7 g/dl [facility] RDW 20.2(H) 11.1 - 14.9 % [facility] Plt Count 207 150 - 400 x10 3/ul [facility] MPV 9.4 9.1 - 12.3 fl [facility] Neut % 77.1 % [facility] Immature Gran % 0.3 % [facility] Lymph % 11.5 % [facility] [place] % 9.6 % [facility] Eos % 1.3 % [facility] AUTO BASO % 0.2 % [facility] NEUTROPHIL ABS # 9.5(H) 1.7 - 6.5 x10 3/ul [facility] Immature Gran # 0.0 0.0 - 0.1 x10 3/ul [facility] Absolute Lymphs (auto) 1.4 0.8 - 3.3 x10 3/ul [facility] Absolute Monos (auto) 1.2(H) 0.2 - 0.8 x10 3/ul [facility] Absolute Eos (auto) 0.2 0.0 - 0.5 x10 3/ul [facility] BASOPHIL ABS # 0.0 0.0 - 0.1 x10 3/ul [facility] Nucleat RBC Rel Count 0.0 #/100WBC [facility] NRBC abs 0.00 0.00 - 0.01 x10 3/ul [facility] Absolute Neutrophils 9,500(H) 200 - 8,000 /ul [facility] 12/30/2019 1:17 PM CDT 12/30/2019 1:22 PM CDT Narrative Resulting Agency Comment ER Veronica GARCIA LAB BLOOD ORDERABLES Fin al Result Performing Organization Address [facility] Co de Phone Number [facility] [address] [place] [address], [facility] [phone] * ECG 12 lead (12/30/2019 1:04 PM CDT) Ventricular Rate EKG/Min 89 BPM ER RADIOLOGY Atrial Rate 89 BPM ER RADIOLOGY RI-Interval (MSEC) 126 ms ER RADIOLOGY QRS-Interval (MSEC) 82 ms ER RADIOLOGY QT-Interval (MSEC) 394 ms ER RADIOLOGY QTc 479 ms ER RADIOLOGY P [place] 6 degrees ER RADIOLOGY R [place] 10 degrees ER RADIOLOGY T [place] -1 degrees ER RADIOLOGY Diagnosis Normal sinus rhythm Normal ECG When compared with ECG of 26-DEC-2019 23:34, Premature ventricular complexes are no longer Present Inverted T waves have replaced nonspecific T wave abnormality in Inferior leads ER RADIOLOGY 12/30/2019 1:04 PM CDT 12/30/2019 3:40 PM CDT Narrative Resulting Agency Comment LAURA Veronica GARCIA ECG ORDERABLES Final Re sult Performing Organization Address [facility] de Phone [...] ?? Age: 49 ?Sex: Male ? MR#: [id number] ?? Loc: ? RADIOLOGY REPORT ?? Order #[id number] ?? Radiology ? Chest 1 View ? [...] 12:35 PM ?? T: ? Report ID: [id number] ?? Reading Location: ??[id number] ? REPORT ELECTRONICALLY SIGNED IN OTHER VENDOR SYSTEM ?? Resulting Agency Comment E Procedure Note Darron Gandhi MD - 12/30/2019 Patient Name: OCTAVIANOJARED Dr: Veronica Blake PA-C, D.O.B: 1970 Exam Date: 12/30/19 1135 Age: 49 Sex: Male MR#: [id number] Loc: RADIOLOGY REPORT Order #[id number] Radiology Chest 1 View Signed EXAM DESCRIPTION: [...] Darron Gandhi M.D. LB T: Report ID: [id number] Reading Location: [place] [address] REPORT ELECTRONICALLY SIGNED IN OTHER VENDOR SYSTEM [...] ?? Age: 49 ?Sex: Male ? MR#: [id number] ?? Loc: ? RADIOLOGY REPORT ?? Order #[id number] ?? CT Scan ? CT Abd/Pelvis W [...] 4:39 PM ?? T: ? Report ID: [id number] ?? Reading Location: ??[id number] ? REPORT ELECTRONICALLY SIGNED IN OTHER VENDOR SYSTEM ?? Resulting Agency Comment E Procedure Note Darron Gandhi MD - 12/30/2019 Patient Name: GER BRUMFIELDDIRK Chowdhury Dr: Veronica Blake PA-C, D.O.B: 1970 Exam Date: 12/30/19 1133 Age: 49 Sex: Male MR#: [id number] Loc: RADIOLOGY REPORT Order #[id number] CT Scan CT Abd/Pelvis W IV Contrast [...] Darron Gandhi M.D. 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
--- OUTSIDE RECORDS SUMMARY | 2024-06-27 10:33 | XMS_ITS | Encounter Summary ---
Author Organization [facility] Healthcare Address [address] [place] [address] Care Team Providers Care Call Or Contact Centre Operator Name Role Phone Michelle Delicd MD Primary Care Provider [phone] Reason for Visit * Auth/Cert Specialty Diagnoses / Procedures Referred By Hoang t Referred To Contact Diagnoses Hepatic cirrhosis, unspecified hepatic cirrhosis type, unspecified whether ascites present (HCC) Hepatic cirrhosis, unspecified hepatic cirrhosis type, unspecified whether ascites present (HCC) [K74.60] Procedures CT EGD BAND LIGATION ESOPHGEAL/GASTRIC VARICES ESOPHAGOGASTRODUODENOSCOPY Referral ID Status Reason Start Date Expiration Date Visits Re quested Visits Authorized [id number] 1 1 Encounter Details Date Type Department Care Team (Latest Contact Info) Description 05/04/2022 8:26 AM [facility] - 05/04/2022 10:50 AM [facility] Hospital Encounter [facility] [address] [facility] [address] [place] [address] Melody Lilly MD [address] [facility] [address] [place] [address] Hepatic cirrhosis, unspecified hepatic cirrhosis type, unspecified [...] Comments Blood Pressure 148/84 05/04/2022 10:23 AM [facility] Pulse 79 05/04/2022 10:23 AM [facility] Temperature 36 ??C (96.8 ??F) 05/04/2022 9:53 AM [facility] Respiratory Rate 15 05/04/2022 10:23 AM [facility] Oxygen Saturation 94% 05/04/2022 10:23 AM [facility] Inhaled Oxygen Concentration - - Weight 95.3 kg (210 lb) 05/04/2022 8:43 AM [facility] Height 182.9 cm (6') 05/04/2022 8:43 AM [facility] Body Mass Index 28.48 05/04/2022 8:43 AM [facility] documented in this encounter Medications at Time [...] (HCC) Depression Infectious viral hepatitis Substance abuse ([facility]) (HCC) Suicide attempt ([facility]) ([facility]) Past Surgical History: Procedure Laterality [...] planned procedure for the reasons stated above. KO KOHANGA REO documented in this encounter Procedure Notes * Melody Lilly MD - 05/04/2022 9:16 AM CSTAssociated Order(s): EGD GI ENDOSCOPY [facility] Patient Name: Jared Brumfield Procedure Date: 05/04/2022 9:16 AM Date of : 1970 Admit Type: Outpatient Age: 51 Gender: Male Attending MD: Melody Lilly M.D. Room: [facility] ENDOSCOPY ROOM 2 Note Status: Finalized [...] On: 05/04/2022 9:16 AM Recognized by the [place] [employer] for promoting quality in endoscopy [facility] K[facility]GA REO documented in this encounter Miscellaneous Notes * Result Encounter Note - Melody Lilly MD - 05/04/2022 10:50 AM [facility] Please call patient and notify biopsy results being benign. No H pylori noted, repeat EGD in 6 months [facility] KOHANGA REO documented in this encounter Plan of Treatment Not on file documented as of this encounter Procedures Procedure Name Priority Date/Time Associated Diagnosis Comments SURGICAL PATHOLOGY Routine 05/04/2022 9:42 AM [facility] Hepatic cirrhosis, unspecified hepatic cirrhosis type, unspecified whether ascites present (HCC) ESOPHAGOGASTRODUODENOSCOPY BIOPSY 05/04/2022 9:27 AM [facility] Hepatic cirrhosis, unspecified hepatic cirrhosis type, unspecified whether ascites present (HCC) Special Needs variceal banding if needed EGD 05/04/2022 9:16 AM [facility] documented in this encounter Results * Surgical pathology (05/04/2022 9:42 AM [facility]) Tissue (Gastric/Stomach biopsy) 05/04/2022 9:42 AM [facility] Narrative PATHOLOGY [facility] - 05/05/2022 11:16 AM [facility] K[facility] RE[facility] EPIC results best viewed via link to PDF [facility] of Surgical [place] [address] Note to Patients: This report may contain [...] Gender: ??M : ??1970 (Age: 51) Address: ??[address] [place] [address] ??[address] Hospital #: ??[id number] Taken:05/04/2022 Received:05/04/2022 Reported: 05/05/2022 Patient Type: [facility] [...] Surgical Pathology and Flow Cytometry Departments at [facility] as part of an ongoing supervisor vendor quality program and in compliance with federally mandated [...] Surgical Pathology and Flow Cytometry Departments of [facility]. ??It has not been cleared or approved by the U. S. Food and Drug Administration. IMAGES AND SCANNED DOCUMENTS, IF INCLUDED, ONLY VIEWABLE IN PDF VERSION OF REPORT Melody Lilly MD LAB PATHOLOGY ORDERABL ES Final Result PATHOLOGY [facility] 3rd Floor [place], [place] [phone] * EGD (05/04/2022 9:16 AM [facility]) Anatomical Region Laterality Modality Other Narrative Procedure Note Melody Lilly MD - 05/04/2022 9:16 AM CST [facility] Patient Name: Jared Brumfield Procedure Date: 05/04/2022 9:16 AM Date of : 1970 Admit Type: Outpatient Age: 51 Gender: Male Attending MD: Melody Lilly M.D. Room: [facility] ENDOSCOPY ROOM 2 Note Status: Finalized [...] On: 05/04/2022 9:16 AM Recognized by the [place] [employer] for promoting quality [...] Pre-Procedure (GI) Rate/Dose Verify 05/04/2022 9:26 AM [facility] 30 mL/hr New Bag 05/04/2022 8:44 AM [facility] 30 mL/hr 30 mL/hr documented in this [...] Recently Administered Medications Times are shown in [facility]. Continuous Medication Order 05/02/2022 05/03/2022 05/04/2022 sodium [...] 05/04/2022 documented in this encounter Care Teams Call Or Contact Centre Operator Relationship Specialty Start Date End Date Michelle Delcid MD [address] [place] [address] PCP - General Family Medicine 04/27/22 documented as of this encounter
--- OUTSIDE RECORDS SUMMARY | 2024-06-27 10:33 | XMS_ITS | Encounter Summary ---
Author Organization [facility] Healthcare Address [address] [place] [address] Care Team Providers Care Data Entry Processor Name Role Phone No, Physician Primary Care Provider Encounter Details Date Type Department Care Team (Late st Contact Info) Description 04/08/2020 5:[address] [facility] ([facility]) [address] [place] [phone] Romeo Mahoney MD [address] [facility] [address] [place] [address] Alcoholic cirrhosis of liver with ascites (CMS/HCC) [...] Procedure Name Priority Date/Time Associated Diagnosis Comments [id number], TUMOR MARKER Routine 04/08/2020 4:48 PM CDT Alcoholic cirrhosis of liver with ascites (CMS/HCC) PROTIME-INR Routine 04/08/2020 4:48 PM CDT Alcoholic cirrhosis of liver with ascites (CMS/HCC) CBC WITHOUT DIFFERENTIAL Routine 04/08/2020 4:48 PM CDT Alcoholic cirrhosis of liver with ascites (CMS/HCC) COMPREHENSIVE METABOLIC PANEL Routine 04/08/2020 4:48 PM CDT Alcoholic cirrhosis of liver with ascites (CMS/HCC) documented in this encounter Results * [id number], Tumor Marker (04/08/2020 4:48 PM CDT) alpha Fetoprotein 3.7 <=8.3 ng/mL [facility] Blood specimen (specimen) 04/08/2020 4:48 PM CDT 04/08/2020 5:01 PM CDT Romeo Mahoney MD LAB BLOOD ORDERABLES F inal Result [facility] Department [place] [address] * (ABNORMAL) Protime-INR (04/08/2020 4:48 PM CDT) [...] MD LAB BLOOD ORDERABLES F inal Result [facility] Department [place] [address] * (ABNORMAL) CBC without differential (04/08/2020 4:48 PM CDT) [facility] WBC 5.0 3.8 - 9.9 K/cumm [facility] [...] PM CDT 04/08/2020 5:01 PM CDT Romeo Maohney MD LAB BLOOD ORDERABLES F inal Result [facility] Department [place] [address] * (ABNORMAL) Comprehensive metabolic panel (04/08/2020 4:48 PM CDT) [facility] Sodium 139 135 - 145 mmol/L [facility] [...] F inal Result [facility] Department [place] [address] documented in this encounter Visit Diagnoses Diagnosis Alcoholic cirrhosis of liver with ascites (CMS/HCC) (HCC) documented in this encounter Additional Health Concerns Infection Onset Date Last Indicated Resolved Time 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
--- OUTSIDE RECORDS SUMMARY | 2024-06-27 10:33 | XMS_ITS | Encounter Summary ---
Author Organization [facility] Address [address] [place] [address] Phone Care Team Providers Care Refurbish Technician Name Role Phone Unavailable Primary Care Provider Unavailabl e Reason for Visit * Reason Onset Date Comments Schedule Ultrasound 08/22/2021 Encounter Details Date Type Department Care Team (Late st Contact Info) Description 08/22/2021 Telephone [facility] Gastroenterology [address] [facility] 8th [place] [address] [place] [phone] Chantel Chand LPN Schedule Ultrasound Social History [...] CST Patient is scheduled for 09/26 at [facility] at 8:40 am he will need to arrive 15 minutes early, nothing to eat or drink for 8 hours prior and will go in through the main enterance of the hospital. Patient's sister Sarah is aware of date/time and instructions. UMER SAFETY INSPECTOR * Telephone Encounter - Chantel Chand LPN - 08/22/2021 9:35 AM CST ----- Message from Henrietta Thomas sent at 08/12/2021 12:48 PM CONSUMER SAFETY INSPECTOR ----- Regarding: FW: Ultrasound September ----- Message ----- From: Henrietta Thomas Sent: 08/12/2021 12:00 AM CONSUMER SAFETY INSPECTOR To: Nayan Mahoney/Balbir Holley Subject: Ultrasound September [facility] [place] due for liver Ultrasound in September for HCC screen UMER SAFETY INSPECTOR documented in this encounter Plan of Treatment Not on file documented as of this encounter Visit Diagnoses Diagnosis Hepatic encephalopathy (HCC)- Primary Hepatic encephalopathy Alcoholic cirrhosis of liver with ascites (CMS/HCC) (HCC) documented in this encounter
--- OUTSIDE RECORDS SUMMARY | 2024-06-27 10:33 | XMS_ITS | Encounter Summary ---
Author Organization [facility] Address [address] [place] [address] Phone Care Team Providers Care Metal Fabricating Shop Helper Name Role Phone Unavailable Primary Care [...]
--- OUTSIDE RECORDS SUMMARY | 2024-06-27 10:33 | XMS_ITS | Encounter Summary ---
Author Organization [facility] Healthcare Address [address] [place] [address] Care Team Providers Care Clinical Practitioner Name Role Phone Unavailable Primary Care Provider Unavailabl e Reason for Referral * Diagnostic Imaging (Routine) - Closed Specialty Diagnoses / Procedures Referred By Contac t Referred To Contact Diagnoses Chronic right shoulder pain Procedures XR Shoulder Right 2 or More Views Emir Crawford MD [address] [place] [address] Phone: tel: fax: [address] [phone] Referral ID Status Reason Start Date Expiration Date Visits Re quested Visits Authorized [id number] Closed 05/27/2020 06/26/2021 1 1 STERED DENTAL HYGIENIST Encounter Details Date Type Department Care Team (Latest Contact Info) Description 06/03/2020 3:41 PM REGISTERED DENTAL HYGIENIST Hospital Encounter [facility] OP INTERIM Emir Crawford MD [address] [place], [place] [id number] Chronic right shoulder pain Social History Tobacco [...] Read Routine (OP Routine) 06/03/2020 3:43 PM REGISTERED DENTAL HYGIENIST Chronic right shoulder pain documented in this encounter Results * XR Shoulder Right 2 or More Views (06/03/2020 3:43 PM REGISTERED DENTAL HYGIENIST) Anatomical Region Laterality Modality Upper Extremities, Shoulder Right Radi ographic Imaging 06/04/2020 12:3 8 PM REGISTERED DENTAL HYGIENIST Narrative 06/04/2020 12:40 PM REGISTERED DENTAL HYGIENIST Patient Name: CHESTER BRUMFIELD Eddie GALVAN ?Ordering Dr: Emir Crawford MD ?? D.O.B: 1970 ? Exam Date: 06/03/ ?? 1543 ?? Age: 49 ?Sex: Male ? MR#: [id number] ?? Loc: ? RADIOLOGY REPORT ?? Order #[id number] ?? Radiology ? Shoulder RT 2Vw Min [...] 12:40 PM ?? T: ? Report ID: [id number] ?? Reading Location: ??[id number] ? REPORT ELECTRONICALLY SIGNED IN OTHER VENDOR SYSTEM ?? Resulting Agency Comment O Procedure Note Kenyon Mullen MD - 06/04/2020 Patient Name: CHESTER BRUMFIELD JROrdering Dr: Emir Crawford MD DDenisO.B: 1970 Exam Date: 06/03/20 1543 Age: 49 Sex: Male MR#: [id number] Loc: RADIOLOGY REPORT Order #[id number] Radiology Shoulder RT 2Vw Min (STANDARD) Signed [...] Kenyon Mckeonin M.D. MJ T: Report ID: [id number] Reading Location: [id number] REPORT ELECTRONICALLY SIGNED IN OTHER VENDOR SYSTEM [...]
--- OUTSIDE RECORDS SUMMARY | 2024-06-27 10:33 | XMS_ITS | Encounter Summary ---
Author Organization [facility] Address [address] [address] Care Team Providers Care Damage Appraiser Name Role Phone Unavailable Primary Care Provider Unavailabl e Reason for Visit * Reason Comments Follow-up 6 month Hep C RLS. N o new complaints Encounter Details Date Type Department Care Team (Latest Contact Info) Description 12/02/2020 2:30 PM CDT Office Visit [facility] Primary Care [address] [place] [address] Emir Crawford MD [address] [place], [place] [id number] Alcoholic cirrhosis of liver with ascites (CMS/HCC) [...]
--- OUTSIDE RECORDS SUMMARY | 2024-06-27 10:33 | XMS_ITS | Encounter Summary ---
Author Organization [facility] Address [address] [facility] [address] [place] [address] Care Team Providers Care Bakery Machine Mechanic Supervisor Name Role Phone Unavailable Primary Care Provider Unavailabl e Reason for Visit * Reason Comments Pain bilat hands Encounter Details Date Type Department Care Team (Late st Contact Info) Description 09/07/2020 2:30 PM CDT Office Visit [facility] Primary Care [address] [place] [phone] Aileen Olmstead PA [address] [place], [place] [id number] Bilateral carpal tunnel syndrome (Primary Dx); Primary [...] hand. Associated symptoms include weakness (in hands commodities clerk). Pertinent negatives include no joint swelling, stiffness or sensory change. Past treatments include nothing. No h/o carpal tunnel. Also, pt has sleeping problem. He tried hydroxyzine and it worked very good for insomnia and anxiety. Asking if could get it prescribed. Review of Systems Musculoskeletal: Negative for joint swelling and stiffness. Neurological: Positive for weakness (in hands commodities clerk). Negative for sensory change. All other systems [...]
--- OUTSIDE RECORDS SUMMARY | 2024-06-27 10:33 | XMS_ITS | Encounter Summary ---
Author Organization [facility] Address [address] [address] Care Team Providers Care Manager Call Center Name Role Phone Unavailable Primary Care Provider Unavailabl e Reason for Visit * Reason Comments Follow-up 6 month Alcoholic ci rrhosis, Alcohol dependence in remission, Hepatic encephalopathy, Secondary esophageal varices, RLS, Drug induced polyneuropathy Pt has been out of his medcation for the past couple months. Encounter Details Date Type Department Care Team (Latest Contact Info) Description 06/20/2021 1:30 PM [employer] Office Visit [facility] [address] [place] [address] Emir Crawford MD [address] [place] [address] Alcoholic cirrhosis of liver with ascites (CMS/HCC) [...] Comments Blood Pressure 146/96 06/20/2021 1:38 PM [employer] Pulse 104 06/20/2021 1:38 PM [employer] Temperature 36.1 ??C (96.9 ??F) 06/20/2021 1:38 PM CS T Respiratory Rate - - Oxygen Saturation 98% 06/20/2021 1:38 PM [employer] Inhaled Oxygen Concentration - - Weight 83.6 kg (184 lb 6.4 oz) 06/20/2021 1:38 P M [employer] Height 182.9 cm (6') 06/20/2021 1:38 PM [employer] Body Mass Index 25.01 06/20/2021 1:38 PM [employer] documented in this encounter Ordered Prescriptions Prescription [...] person, place, and time. Emir Crawford MD [facility] [employer] documented in this encounter Miscellaneous Notes * Assessment & Plan Note - Emir Crawford MD - 06/20/2021 1:56 PM [employer] Associated Problem(s): Benign prostatic hyperplasia with incomplete bladder emptying Continue tamsulosin [employer] * Assessment & Plan Note - Emir Crawford MD - 06/09/2021 8:05 AM [employer] Associated Problem(s): Drug-induced polyneuropathy (HCC) Stable on gabapentin [employer] * Assessment & Plan Note - Emir Crawford MD - 06/09/2021 8:05 AM [employer] Associated Problem(s): Restless leg syndrome Stable on pramipexole [employer] * Assessment & Plan Note - Emir Crawford MD - 06/09/2021 8:04 AM [employer] Associated Problem(s): Esophageal varices (HCC) Status post banding. Followed by Dr. Nagy [employer] * Assessment & Plan Note - Emir Crawford MD - 06/09/2021 8:04 AM [employer] Associated Problem(s): Hepatic encephalopathy (HCC) Stable on Xifaxan [employer] * Assessment & Plan Note - mEir Crawford MD - 06/09/2021 8:03 AM [employer] Associated Problem(s): 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) Currently remains sober. Has not drank since December of 2019 [employer] * Assessment & Plan Note - Emir Crawford MD - 06/09/2021 8:01 AM [employer] Associated Problem(s): Alcoholic cirrhosis of liver without ascites (CMS/HCC) (HCC) Stable. Follows with Dr. Nagy. Continue Xifaxan [employer] documented in this encounter Plan of Treatment [...]
--- OUTSIDE RECORDS SUMMARY | 2024-06-27 10:34 | XMS_ITS | Encounter Summary ---
Author Organization [facility] Healthcare Address [address] [place] [address] Care Team Providers Care Court Abstractor Name Role Phone Jayne Bowen MD Primary Care Provider + Encounter Details Date Type Department Care Team (Late st Contact Info) Description 12/10/2019 1:45 AM CDT - 12/25/2019 7:00 PM CDT Hospital Encounter [facility] ADMIT Unknown, Meir Sweet MD [facility] [place] [address] Discharge Disposition: Discharge to fpc facility Social History Tobacco Use Types Packs/Day [...] Disposition Code Departure Means Destination Discharge to fpc facility documented in this encounter Plan of [...] CDT) Sodium 134(L) 135 - 145 mmol/L [facility] Potassium 3.9 3.3 - 5.1 mmol/L [facility] Chloride 105 96 - 108 mmol/L [facility] Carbon Dioxide 22 22 - 32 mmol/L [facility] Anion Gap 7 7 - 16 [facility] Glucose 114(H) 70 - 100 mg/dL [facility] BUN 4(L) 8 - 25 mg/dL [facility] Creatinine 0.5 0.5 - 1.3 mg/dL [facility] Comment: The specimen is icteric. ??A high bilirubin level is known to cause a false decrease in measured creatinine. NOTE: Estimated GFR (Cockroft-Gault) will NOT be calculated unless patient Height and Weight were entered. Also, Kidney Disease Stage (GFR) and Estimated GFR (Cockroft-Gault) will NOT be calculated if Creatinine result is <0.2. Kidney Disease Stage >90 mL/MIN [facility] Comment: NOTE; ??The GFR is an [...] on dialysis Est GFR (Cockcroft-G) 202 ml/MIN [facility] Comment: Estimated GFR(Cockroft-Gault)is used to calculate patient medication dosage Calcium 7.4(L) 8.6 - 10.3 mg/dL [facility] Total Protein 5.9(L) 6.4 - 8.3 g/dL [facility] Albumin 1.8(L) 3.5 - 5.0 g/dL [facility] Globulin 4.1(H) 2.3 - 3.5 gm/dL [facility] Albumin/Globulin Ratio 0.4(L) 1.1 - 1.8 [facility] Total Bilirubin 3.2(H) 0.0 - 1.2 mg/dL [facility] AST 103(H) 0 - 40 U/L [facility] ALT 22 0 - 41 U/L [facility] Alkaline Phosphatase 107 40 - 129 U/L [facility] 12/24/2019 7:39 AM CDT 12/24/2019 7:56 AM CDT Narrative Resulting Agency Comment IN us Darwin Walker MD LAB BLOOD ORDERABLES Final Result [facility] [address] [phone] * (ABNORMAL) CBC with auto differential (12/24/2019 7:39 AM CDT) WBC 6.9 3.8 - 9.9 X10 3/ul [facility] RBC 3.19(L) 4.30 - 5.80 x10 6/ul [facility] Hemoglobin 10.0(L) 13.0 - 17.5 g/dL [facility] Hct 30.5(L) 38.9 - 50.3 % [facility] MCV 95.6 81.3 - 96.4 fl [facility] MCH 31.3 27.1 - 33.3 pg [facility] MCHC 32.8 32.3 - 35.7 g/dl [facility] RDW 20.2(H) 11.1 - 14.9 % [facility] Plt Count 106(L) 150 - 400 x10 3/ul [facility] MPV 10.5 9.1 - 12.3 fl [facility] Neut % 74.1 % [facility] Immature Gran % 1.0 % [facility] Lymph % 12.8 % [facility] [place] % 9.5 % [facility] Eos % 1.9 % [facility] AUTO BASO % 0.7 % [facility] NEUTROPHIL ABS # 5.1 1.7 - 6.5 x10 3/ul [facility] Immature Gran # 0.1 0.0 - 0.1 x10 3/ul [facility] Absolute Lymphs (auto) 0.9 0.8 - 3.3 x10 3/ul [facility] Absolute Monos (auto) 0.7 0.2 - 0.8 x10 3/ul [facility] Absolute Eos (auto) 0.1 0.0 - 0.5 x10 3/ul [facility] BASOPHIL ABS # 0.1 0.0 - 0.1 x10 3/ul [facility] Nucleat RBC Rel Count 0.0 #/100WBC [facility] NRBC abs 0.00 0.00 - 0.01 x10 3/ul [facility] Absolute Neutrophils 5,100 200 - 8,000 /ul [facility] 12/24/2019 7:39 AM CDT 12/24/2019 7:56 AM CDT Narrative Resulting Agency Comment IN Liborio Boswell MD LAB BLOOD ORDERABLES Final Re sult [facility] [address] [phone] * (ABNORMAL) Phosphorus (12/23/2019 6:08 AM CDT) Phosphorus 2.2(L) 2.3 - 4.5 mg/dL [facility] 12/23/2019 6:08 AM CDT 12/23/2019 6:33 AM CDT Narrative Resulting Agency Comment IN Liborio Boswell MD LAB BLOOD [place]AB[place] [address], [facility] [phone] * Magnesium (12/23/2019 6:08 AM CDT) Magnesium 1.7 1.6 - 2.6 mg/dL [facility] Comment: Magnesium sulfate therapy: ??3.0-9.1 mg/dL 12/23/2019 6:08 AM CDT 12/23/2019 6:33 AM CDT Narrative Resulting Agency Comment IN Liborio Boswell MD LAB BLOOD ORDERABLES Final Re sult Performing Organization Address [facility]/[place] [address], [facility] [phone] * (ABNORMAL) Comprehensive metabolic panel (12/23/2019 6:08 AM CDT) Sodium 133(L) 135 - 145 mmol/L [facility] Potassium 4.0 3.3 - 5.1 mmol/L [facility] Chloride 105 96 - 108 mmol/L [facility] Carbon Dioxide 20(L) 22 - 32 mmol/L [facility] Anion Gap 8 7 - 16 [facility] Glucose 109(H) 70 - 100 mg/dL [facility] BUN 5(L) 8 - 25 mg/dL [facility] Creatinine 0.4(L) 0.5 - 1.3 mg/dL [facility] Comment: The specimen is icteric. ??A high bilirubin level is known to cause a false decrease in measured creatinine. NOTE: Estimated GFR (Cockroft-Gault) will NOT be calculated unless patient Height and Weight were entered. Also, Kidney Disease Stage (GFR) and Estimated GFR (Cockroft-Gault) will NOT be calculated if Creatinine result is <0.2. Kidney Disease Stage >90 mL/MIN [facility] Comment: NOTE; ??The GFR is an [...] on dialysis Est GFR (Cockcroft-G) 253 ml/MIN [facility] Comment: Estimated GFR(Cockroft-Gault)is used to calculate patient medication dosage Calcium 7.4(L) 8.6 - 10.3 mg/dL [facility] Total Protein 6.4 6.4 - 8.3 g/dL [facility] Albumin 2.0(L) 3.5 - 5.0 g/dL [facility] Globulin 4.4(H) 2.3 - 3.5 gm/dL [facility] Albumin/Globulin Ratio 0.5(L) 1.1 - 1.8 [facility] Total Bilirubin 2.4(H) 0.0 - 1.2 mg/dL [facility] AST 76(H) 0 - 40 U/L [facility] ALT 21 0 - 41 U/L [facility] Alkaline Phosphatase 90 40 - 129 U/L [facility] 12/23/2019 6:08 AM CDT 12/23/2019 6:33 AM CDT Narrative Resulting Agency Comment IN us Liborio Boswell MD LAB BLOOD ORDERABLES Final Re sult [facility] [address] [place] [address], [facility] [phone] * (ABNORMAL) CBC with auto differential (12/23/2019 6:08 AM CDT) WBC 7.6 3.8 - 9.9 X10 3/ul [facility] RBC 3.27(L) 4.30 - 5.80 x10 6/ul [facility] Hemoglobin 10.1(L) 13.0 - 17.5 g/dL [facility] Hct 30.4(L) 38.9 - 50.3 % [facility] MCV 93.0 81.3 - 96.4 fl [facility] MCH 30.9 27.1 - 33.3 pg [facility] MCHC 33.2 32.3 - 35.7 g/dl [facility] RDW 19.5(H) 11.1 - 14.9 % [facility] Plt Count 113(L) 150 - 400 x10 3/ul [facility] MPV 10.2 9.1 - 12.3 fl [facility] Neut % 72.0 % [facility] Immature Gran % 1.6 % [facility] Lymph % 13.8 % [facility] [place] % 9.8 % [facility] Eos % 1.7 % [facility] AUTO BASO % 1.1 % [facility] NEUTROPHIL ABS # 5.5 1.7 - 6.5 x10 3/ul [facility] Immature Gran # 0.1 0.0 - 0.1 x10 3/ul [facility] Absolute Lymphs (auto) 1.0 0.8 - 3.3 x10 3/ul [facility] Absolute Monos (auto) 0.7 0.2 - 0.8 x10 3/ul [facility] Absolute Eos (auto) 0.1 0.0 - 0.5 x10 3/ul [facility] BASOPHIL ABS # 0.1 0.0 - 0.1 x10 3/ul [facility] Nucleat RBC Rel Count 0.0 #/100WBC [facility] NRBC abs 0.00 0.00 - 0.01 x10 3/ul [facility] Absolute Neutrophils 5,500 200 - 8,000 /ul [facility] 12/23/2019 6:08 AM CDT 12/23/2019 6:33 AM CDT Narrative Resulting Agency Comment IN us Liborio Boswell MD LAB BLOOD ORDERABLES Final Re sult [facility] [address] [phone] * US Guided Paracentesis (12/23/2019 12:00 AM CDT) Anatomical Region Laterality Modality Abdomen N/A Ultrasound 12/23/2019 3:11 PM CDT Narrative 12/23/2019 3:12 PM CDT Patient Name: JARED BRUMFIELD JR ?Ordering Dr: Darwin Walker MD ?? D.O.B: 1970 ? Exam Date: 12/23/19 ?? 0000 ?? Age: 49 ?Sex: Male ? MR#: [id number] ?? Loc: ??C253-01 ? RADIOLOGY REPORT ?? Order #[id number] ?? Ultrasound ? US Guided Paracentesis in [...] deeper ?? tissues. ??Under ultrasound guidance, a 5-Prydeinig 7 cm One Step Centesis ?? catheter [...] 3:12 PM ?? T: ? Report ID: [id number] ?? Reading Location: ??[id number] ? REPORT ELECTRONICALLY SIGNED IN OTHER VENDOR SYSTEM ?? Resulting Agency Comment I Procedure Note Dany Storey MD - 12/23/2019 Patient Name: JARED BRUMFIELD Dr: Darwin Walker MD D.O.B: 1970 Exam Date: 12/23/19 0000 Age: 49 Sex: Male MR#: [id number] Loc: C253-01 RADIOLOGY REPORT Order #[id number] Ultrasound US Guided Paracentesis in US Signed [...] and deeper tissues. Under ultrasound guidance, a 5-Prydeinig 7 cm One Step Centesis catheter was [...] by Dany Storey M.D. T: Report ID: [id number] Reading Location: [id number] REPORT ELECTRONICALLY SIGNED IN OTHER VENDOR SYSTEM Darwin Walker MD IMG US PROCEDURES Final Res ult * (ABNORMAL) Phosphorus (12/22/2019 6:24 AM CDT) Phosphorus 1.9(L) 2.3 - 4.5 mg/dL [facility] 12/22/2019 6:24 AM CDT 12/22/2019 7:19 AM CDT Narrative Resulting Agency Comment IN Liborio Boswell MD LAB BLOOD ORDERABLES Final Re sult Performing Organization Address City/[facility]/ZIP Co de Phone Number [address] [phone] * Magnesium (12/22/2019 6:24 AM CDT) Magnesium 1.7 1.6 - 2.6 mg/dL [facility] Comment: Magnesium sulfate therapy: ??3.0-9.1 mg/dL 12/22/2019 6:24 AM CDT 12/22/2019 7:19 AM CDT Narrative Resulting Agency Comment IN Liborio Boswell MD LAB BLOOD ORDERABLES Final Re sult Performing Organization Address City/[facility]/ZIP Co de Phone Number [address] [phone] * (ABNORMAL) Comprehensive metabolic panel (12/22/2019 6:24 AM CDT) Sodium 135 135 - 145 mmol/L [facility] Potassium 3.1(L) 3.3 - 5.1 mmol/L [facility] Chloride 106 96 - 108 mmol/L [facility] Carbon Dioxide 23 22 - 32 mmol/L [facility] Anion Gap 6(L) 7 - 16 [facility] Glucose 118(H) 70 - 100 mg/dL [facility] BUN 6(L) 8 - 25 mg/dL [facility] Creatinine 0.5 0.5 - 1.3 mg/dL [facility] Comment: The specimen is icteric. ??A high bilirubin level is known to cause a false decrease in measured creatinine. NOTE: Estimated GFR (Cockroft-Gault) will NOT be calculated unless patient Height and Weight were entered. Also, Kidney Disease Stage (GFR) and Estimated GFR (Cockroft-Gault) will NOT be calculated if Creatinine result is <0.2. Kidney Disease Stage >90 mL/MIN [facility] Comment: NOTE; ??The GFR is an [...] on dialysis Est GFR (Cockcroft-G) 202 ml/MIN [facility] Comment: Estimated GFR(Cockroft-Gault)is used to calculate patient medication dosage Calcium 7.3(L) 8.6 - 10.3 mg/dL [facility] Total Protein 5.9(L) 6.4 - 8.3 g/dL [facility] Albumin 1.9(L) 3.5 - 5.0 g/dL [facility] Globulin 4.0(H) 2.3 - 3.5 gm/dL [facility] Albumin/Globulin Ratio 0.5(L) 1.1 - 1.8 [facility] Total Bilirubin 2.8(H) 0.0 - 1.2 mg/dL [facility] AST 68(H) 0 - 40 U/L [facility] ALT 19 0 - 41 U/L [facility] Alkaline Phosphatase 70 40 - 129 U/L [facility] 12/22/2019 6:24 AM CDT 12/22/2019 7:19 AM CDT Narrative Resulting Agency Comment IN us Liborio Boswell MD LAB BLOOD ORDERABLES Final Re sult [facility] [address] [place] [address], [facility] [phone] * (ABNORMAL) CBC with auto differential (12/22/2019 6:24 AM CDT) WBC 6.2 3.8 - 9.9 X10 3/ul [facility] RBC 3.06(L) 4.30 - 5.80 x10 6/ul [facility] Hemoglobin 9.5(L) 13.0 - 17.5 g/dL [facility] Hct 29.4(L) 38.9 - 50.3 % [facility] MCV 96.1 81.3 - 96.4 fl [facility] MCH 31.0 27.1 - 33.3 pg [facility] MCHC 32.3 32.3 - 35.7 g/dl [facility] RDW 19.8(H) 11.1 - 14.9 % [facility] Plt Count 113(L) 150 - 400 x10 3/ul [facility] MPV 10.1 9.1 - 12.3 fl [facility] Neut % 64.1 % [facility] Immature Gran % 1.3 % [facility] Lymph % 16.6 % [facility] [place] % 14.1 % [facility] Eos % 2.9 % [facility] AUTO BASO % 1.0 % [facility] NEUTROPHIL ABS # 3.9 1.7 - 6.5 x10 3/ul [facility] Immature Gran # 0.1 0.0 - 0.1 x10 3/ul [facility] Absolute Lymphs (auto) 1.0 0.8 - 3.3 x10 3/ul [facility] Absolute Monos (auto) 0.9(H) 0.2 - 0.8 x10 3/ul [facility] Absolute Eos (auto) 0.2 0.0 - 0.5 x10 3/ul [facility] BASOPHIL ABS # 0.1 0.0 - 0.1 x10 3/ul [facility] Nucleat RBC Rel Count 0.0 #/100WBC [facility] NRBC abs 0.00 0.00 - 0.01 x10 3/ul [facility] Absolute Neutrophils 3,900 200 - 8,000 /ul [facility] 12/22/2019 6:24 AM CDT 12/22/2019 7:19 AM CDT Narrative Resulting Agency Comment IN us Liborio Boswell MD LAB BLOOD ORDERABLES Final Re sult [facility] [address] [place] [address], [facility] [phone] * XR Chest 1 View (12/22/2019 12:00 AM CDT) Anatomical Region Laterality Modality Body, Chest N/A Radiographic Lynette ging 12/22/2019 8:31 AM CDT Narrative 12/22/2019 8:33 AM CDT Patient Name: JARED BRUMFIELD JR ?Ordering Dr: Genie Moffett MD ?? D.O.B: 1970 ? Exam Date: 12/22/19 ?? 0000 ?? Age: 49 ?Sex: Male ? MR#: [id number] ?? Loc: ??C253-01 ? RADIOLOGY REPORT ?? Order #[id number] ?? Radiology ? Chest 1 View Portable [...] 8:33 AM ?? T: ? Report ID: [id number] ?? Reading Location: ??[id number] ? REPORT ELECTRONICALLY SIGNED IN OTHER VENDOR SYSTEM ?? Resulting Agency Comment I Procedure Note Jone Cody DO - 12/22/2019 Patient Name: JARED BRUMFIELD Eddie Chowdhury Dr: Genie Moffett MD, D.O.B: 1970 Exam Date: 12/22/19 0000 Age: 49 Sex: Male MR#: [id number] Loc: C253-01 RADIOLOGY REPORT Order #[id number] Radiology Chest 1 View Portable Signed EXAM [...] Jone Cody D.O. PS T: Report ID: [id number] Reading Location: [place] [address] REPORT ELECTRONICALLY SIGNED IN OTHER VENDOR SYSTEM us Genie Moffett MD IMG XR PROCEDURES Final Res ult * (ABNORMAL) CRP (acute phase) (12/21/2019 6:41 AM CDT) [facility] C-Reactive Protein 73.3(H) 0.0 - 10.0 mg/L [facility] 12/21/2019 6:41 AM CDT 12/21/2019 6:57 AM CDT Narrative Resulting Agency Comment IN us Genie Moffett MD LAB BLOOD [place] [address], [facility] [phone] * B-type natriuretic peptide (12/21/2019 6:41 AM CDT) B-Natriuretic Peptide 38 0 - 100 pg/mL [facility] Comment: B Natriutetic Peptide METHOD: ??Siemens [...] BLOOD ORDERABLES Final Result Performing Organization Address [facility] Co de Phone Number [address] [phone] * (ABNORMAL) Phosphorus (12/21/2019 6:41 AM CDT) Pathologist [facility] Phosphorus 1.7(L) 2.3 - 4.5 mg/dL [facility] 12/21/2019 6:41 AM CDT 12/21/2019 6:57 AM CDT Narrative Resulting Agency Comment IN Genie Moffett MD LAB BLOOD ORDERABLES Final Result [address] [phone] * Magnesium (12/21/2019 6:41 AM CDT) Pathologist [facility] Magnesium 2.0 1.6 - 2.6 mg/dL [facility] Comment: Magnesium sulfate therapy: ??3.0-9.1 mg/dL 12/21/2019 6:41 AM CDT 12/21/2019 6:57 AM CDT Narrative Resulting Agency Comment IN Genie Moffett MD LAB BLOOD ORDERABLES Final Result [facility] [address] [place] [address], [facility] [phone] * (ABNORMAL) Comprehensive metabolic panel (12/21/2019 6:41 AM CDT) Sodium 136 135 - 145 mmol/L [facility] Potassium 2.7(L) 3.3 - 5.1 mmol/L [facility] Chloride 105 96 - 108 mmol/L [facility] Carbon Dioxide 24 22 - 32 mmol/L [facility] Anion Gap 7 7 - 16 [facility] Glucose 125(H) 70 - 100 mg/dL [facility] BUN 11 8 - 25 mg/dL [facility] Creatinine 0.6 0.5 - 1.3 mg/dL [facility] Comment: The specimen is icteric. ??A high bilirubin level is known to cause a false decrease in measured creatinine. NOTE: Estimated GFR (Cockroft-Gault) will NOT be calculated unless patient Height and Weight were entered. Also, Kidney Disease Stage (GFR) and Estimated GFR (Cockroft-Gault) will NOT be calculated if Creatinine result is <0.2. Kidney Disease Stage >90 mL/MIN [facility] Comment: NOTE; ??The GFR is an [...] on dialysis Est GFR (Cockcroft-G) 169 ml/MIN [facility] Comment: Estimated GFR(Cockroft-Gault)is used to calculate patient medication dosage Calcium 7.5(L) 8.6 - 10.3 mg/dL [facility] Total Protein 6.0(L) 6.4 - 8.3 g/dL [facility] Albumin 1.8(L) 3.5 - 5.0 g/dL [facility] Globulin 4.2(H) 2.3 - 3.5 gm/dL [facility] Albumin/Globulin Ratio 0.4(L) 1.1 - 1.8 [facility] Total Bilirubin 2.3(H) 0.0 - 1.2 mg/dL [facility] AST 57(H) 0 - 40 U/L [facility] ALT 19 0 - 41 U/L [facility] Alkaline Phosphatase 70 40 - 129 U/L [facility] 12/21/2019 6:41 AM CDT 12/21/2019 6:57 AM CDT Narrative Resulting Agency Comment IN Genie Moffett MD LAB BLOOD ORDERABLES Final Result [facility] [address] [phone] * (ABNORMAL) Erythrocyte sedimentation rate (12/21/2019 6:41 AM CDT) ESR 22(H) 1 - 15 mm/hr [facility] 12/21/2019 6:41 AM CDT 12/21/2019 6:57 AM CDT Narrative Resulting Agency Comment IN Genie Moffett MD LAB BLOOD ORDERABLES Final Result [facility] [address] [place] [address], [facility] [phone] * (ABNORMAL) CBC with auto differential (12/21/2019 6:41 AM CDT) WBC 7.6 3.8 - 9.9 X10 3/ul [facility] RBC 3.22(L) 4.30 - 5.80 x10 6/ul [facility] Hemoglobin 9.8(L) 13.0 - 17.5 g/dL [facility] Hct 30.2(L) 38.9 - 50.3 % [facility] MCV 93.8 81.3 - 96.4 fl [facility] MCH 30.4 27.1 - 33.3 pg [facility] MCHC 32.5 32.3 - 35.7 g/dl [facility] RDW 20.9(H) 11.1 - 14.9 % [facility] Plt Count 112(L) 150 - 400 x10 3/ul [facility] MPV 10.5 9.1 - 12.3 fl [facility] Neut % 71.7 % [facility] Immature Gran % 0.9 % [facility] Lymph % 11.5 % [facility] [place] % 12.2 % [facility] Eos % 2.7 % [facility] AUTO BASO % 1.0 % [facility] NEUTROPHIL ABS # 5.5 1.7 - 6.5 x10 3/ul [facility] Immature Gran # 0.1 0.0 - 0.1 x10 3/ul [facility] Absolute Lymphs (auto) 0.9 0.8 - 3.3 x10 3/ul [facility] Absolute Monos (auto) 0.9(H) 0.2 - 0.8 x10 3/ul [facility] Absolute Eos (auto) 0.2 0.0 - 0.5 x10 3/ul [facility] BASOPHIL ABS # 0.1 0.0 - 0.1 x10 3/ul [facility] Nucleat RBC Rel Count 0.0 #/100WBC [facility] NRBC abs 0.00 0.00 - 0.01 x10 3/ul [facility] Absolute Neutrophils 5,500 200 - 8,000 /ul [facility] 12/21/2019 6:41 AM CDT 12/21/2019 6:57 AM CDT Narrative Resulting Agency Comment IN Genie Moffett MD LAB BLOOD ORDERABLES Final Result Performing Organization Address City/[facility] Co de Phone Number [address] [phone] * Strep pneumoniae antigen, urine (12/20/2019 6:30 PM CDT) Ur Strep pneumoniae Ag NEGATIVE NEGATIVE [facility] 12/20/2019 6:30 PM CDT 12/20/2019 7:04 PM CDT Narrative [facility] - 12/20/2019 7:05 PM CDT Collected By SB Urine collection method Indwelling catheter Resulting Agency Comment IN Genie Moffett MD LAB MICROBIOLOGY - GENERAL ORDERABLES Final Result [address] [phone] * Stool culture Stool (12/20/2019 1:46 PM CDT) CULTURE STOOL This laboratory routinely screens for Salmonella, Shigella, Campylobacter, E.coli 0157, Edwardsiella, Aeromonas and Plesiomonas. NO ENTERIC STOOL PATHOGENS ISOLATED. [facility] Stool 12/20/2019 1:46 PM CDT 12/20/2019 2:18 PM CDT Narrative [facility] - 12/23/2019 11:36 AM CDT Collected By SB Resulting Agency Comment Collected By SB ?? Liborio Boswell MD LAB MICROBIOLOGY - GENERAL OR DERABLES Final Result Performing Organization Address [facility] Co de Phone Number [address] [address], [facility] [phone] * C. difficile toxin assay (12/20/2019 1:46 PM CDT) [facility] St C.difficile Tox PCR POSITIVE NEGATIVE [facility] Comment: Toxigenic C. Difficile DNA sequences are detected. ALL IN PATIENTS REQUIRE ISOLATION 12/20/2019 1:46 PM CDT 12/20/2019 2:18 PM CDT Narrative [facility] - 12/20/2019 3:09 PM CDT Pt [...] OR DERABLES Final Result Performing Organization Address City/[facility] de Phone Number [address] [address], [facility] [phone] * (ABNORMAL) CRP (acute phase) (12/20/2019 5:13 AM CDT) [facility] C-Reactive Protein 90.5(H) 0.0 - 10.0 mg/L [facility] 12/20/2019 5:13 AM CDT 12/20/2019 5:20 AM CDT Narrative Resulting Agency Comment IN Genie Moffett MD LAB BLOOD ORDERABLES Final Result Performing Organization Address [facility] Co de Phone Number [address] [phone] * B-type natriuretic peptide (12/20/2019 5:13 AM CDT) B-Natriuretic Peptide 75 0 - 100 pg/mL [facility] Comment: B Natriutetic Peptide METHOD: ??Siemens [...] BLOOD ORDERABLES Final Result Performing Organization Address [facility] de Phone Number [address] [phone] * (ABNORMAL) PROCALCITONIN Post-abt 72 Hour (12/20/2019 5:13 AM CDT) Pathologist [facility] PROCALCITONIN Post-abt 72 Hour 1.64(H) 0.0 - 0.24 ng/mL [facility] Comment: Guidelines for use with Community [...] ORDERABLES Final Re sult Performing Organization Address [place]/[facility]/ZIP Co de Phone Number [address] [phone] * (ABNORMAL) Erythrocyte sedimentation rate (12/20/2019 5:13 AM CDT) ESR 34(H) 1 - 15 mm/hr [facility] 12/20/2019 5:13 AM CDT 12/20/2019 5:20 AM CDT Narrative Resulting Agency Comment IN Genie Moffett MD LAB BLOOD ORDERABLES Final Result Performing Organization Address City/[facility]/ZIP Co de Phone Number [address] [phone] * SCAN - LABS (12/20/2019 12:00 AM CDT) Narrative 12/20/2019 12:00 AM CDT Ordered by an unspecified provider. Crista Provider Final Res ult * COVID-19 Coronavirus RNA (12/19/2019 12:55 PM CDT) Pathologist [facility] COVID-19 Coronavirus RNA NOT DETECTED [facility] Comment: A negative result does not rule out the possibility of COVID-19 and should not be used as the sole basis for patient management decisions. Coronavirus (COVID-19) Interp SEE COMMENT [facility] Coronavirus (COVID-19) [facility] Per[facility] Lab DON [facility] 12/19/2019 12:5 5 PM CDT 12/19/2019 1:04 PM CDT Narrative [facility] - 12/19/2019 8:24 PM CDT Screening for emergent/scheduled (< 12hr) surg or procedure N Resulting Agency Comment IN Genie Moffett MD LAB MICROBIOLOGY - GENERAL ORDERABLES Final Result Performing Organization Address [facility]/[place] Co de Phone Number [address] [phone] * Infection Prevention MRSA Only (Staphylococcus aureus) PCR (12/19/2019 12:55 PM CDT) MRSA Surveill Initial POSITIVE NEGATIVE [facility] Comment: ?MRSA target DNA sequences are detected. ISOLATION ALERT ? THIS ORGANISM REQUIRES PATIENT ISOLATION 12/19/2019 12:5 5 PM CDT 12/19/2019 1:04 PM CDT Narrative [facility] - 12/19/2019 2:06 PM CDT Collected By AB Resulting Agency Comment IN Genie Moffett MD LAB MICROBIOLOGY - GENERAL ORDERABLES Final Result Performing Organization Address City/[facility]/[place] Co de Phone Number [address] [phone] * CT Abdomen Pelvis W Contrast (12/19/2019 12:16 PM CDT) Anatomical Region Laterality Modality Body N/A Computed Tomogra phy 12/19/2019 2:17 PM CDT Narrative 12/19/2019 2:29 PM CDT Patient Name: JARED BRUMFIELD JR ?Ordering Dr: Liborio Boswell MD ?? D.O.B: 1970 ? Exam Date: 12/19/19 ?? 1216 ?? Age: 49 ?Sex: Male ? MR#: [id number] ?? Loc: ??N291-02 ? RADIOLOGY REPORT ?? Order #[id number] ?? CT Scan ? CT Abd/Pelvis W [...] 2:28 PM ?? T: ? Report ID: [id number] ?? Reading Location: ??[id number] ? REPORT ELECTRONICALLY SIGNED IN OTHER VENDOR SYSTEM ?? Resulting Agency Comment I Procedure Note Marcio Morris MD - 12/19/2019 Patient Name: JARED BRUMFIELD Dr: Liborio Boswell MD D.O.B: 1970 Exam Date: 12/19/19 1216 Age: 49 Sex: Male MR#: [id number] Loc: N291-02 RADIOLOGY REPORT Order #[id number] CT Scan CT Abd/Pelvis W IV Contrast [...] Marcio Morris M.D. AG T: Report ID: [id number] Reading Location: [place] [address] REPORT ELECTRONICALLY SIGNED IN OTHER VENDOR SYSTEM Liborio Boswell MD IMG CT PROCEDURES Final Resul t * Ferritin (12/19/2019 10:32 AM CDT) Pathologist [facility] Ferritin 53.5 30.0 - 400.0 ng/mL [facility] 12/19/2019 10:3 2 AM CDT 12/19/2019 10:51 AM CDT Narrative Resulting Agency Comment IN Genie Moffett MD LAB BLOOD ORDERABLES Final Result [facility] [address] [place] [address], [facility] [phone] * ABO/Rh (12/19/2019 8:19 AM CDT) Blood Type OP [facility] 12/19/2019 8:19 AM CDT 12/19/2019 8:26 AM CDT Narrative Resulting Agency Comment IN Liborio Boswell MD LAB BLOOD BANK TEST ORDERABLE S Final Result Performing Organization Address [facility] Co de Phone Number [address] [phone] * (ABNORMAL) PROCALCITONIN Post-antibiotic (12/19/2019 5:00 AM CDT) PROCALCITONIN Post-antibiotic 1.92(H) 0.0 - 0.24 ng/mL [facility] Comment: Guidelines for use with Community [...] ORDERABLES Final Re sult Performing Organization Address City/[facility]/ZIP Co de Phone Number [address] [phone] * Magnesium (12/19/2019 5:00 AM CDT) Magnesium 1.7 1.6 - 2.6 mg/dL [facility] Comment: Magnesium sulfate therapy: ??3.0-9.1 mg/dL 12/19/2019 5:00 AM CDT 12/19/2019 5:11 AM CDT Narrative Resulting Agency Comment IN Sherita Moss MD LAB BLOOD ORDERABLES Final Result [facility] [address] [place] [address], [facility] [phone] * (ABNORMAL) Comprehensive metabolic panel (12/19/2019 5:00 AM CDT) Sodium 134(L) 135 - 145 mmol/L [facility] Potassium 4.0 3.3 - 5.1 mmol/L [facility] Chloride 101 96 - 108 mmol/L [facility] Carbon Dioxide 22 22 - 32 mmol/L [facility] Anion Gap 11 7 - 16 [facility] Glucose 117(H) 70 - 100 mg/dL [facility] BUN 15 8 - 25 mg/dL [facility] Creatinine 0.9 0.5 - 1.3 mg/dL [facility] Comment: The specimen is icteric. ??A high bilirubin level is known to cause a false decrease in measured creatinine. NOTE: Estimated GFR (Cockroft-Gault) will NOT be calculated unless patient Height and Weight were entered. Also, Kidney Disease Stage (GFR) and Estimated GFR (Cockroft-Gault) will NOT be calculated if Creatinine result is <0.2. Kidney Disease Stage >90 mL/MIN [facility] Comment: NOTE; ??The GFR is an [...] on dialysis Est GFR (Cockcroft-G) 112 ml/MIN [facility] Comment: Estimated GFR(Cockroft-Gault)is used to calculate patient medication dosage Calcium 8.2(L) 8.6 - 10.3 mg/dL [facility] Total Protein 6.7 6.4 - 8.3 g/dL [facility] Albumin 2.2(L) 3.5 - 5.0 g/dL [facility] Globulin 4.5(H) 2.3 - 3.5 gm/dL [facility] Albumin/Globulin Ratio 0.5(L) 1.1 - 1.8 [facility] Total Bilirubin 3.7(H) 0.0 - 1.2 mg/dL [facility] AST 77(H) 0 - 40 U/L [facility] ALT 23 0 - 41 U/L [facility] Alkaline Phosphatase 77 40 - 129 U/L [facility] 12/19/2019 5:00 AM CDT 12/19/2019 5:11 AM CDT Narrative Resulting Agency Comment IN us Sherita Moss MD LAB BLOOD ORDERABLES Final Result [facility] [address] [phone] * (ABNORMAL) aPTT (12/19/2019 5:00 AM CDT) APTT 47(H) 27 - 36 SECONDS [facility] 12/19/2019 5:00 AM CDT 12/19/2019 5:11 AM CDT Narrative Resulting Agency Comment IN us Liborio Boswell MD LAB BLOOD ORDERABLES Final Re sult Performing Organization Address City/[facility]/ZIP Co de Phone Number [place] [address] [address] [phone] * (ABNORMAL) Protime-INR (12/19/2019 5:00 AM CDT) [facility] PT 26.1(H) 12.2 - 14.8 SECONDS [facility] INR 2.30 [facility] Comment: Recommended Therapeutic range for Oral [...] ORDERABLES Final Re sult Performing Organization Address City/[facility]/ZIP Co de Phone Number [place] [address] [address] [phone] * (ABNORMAL) CBC with auto differential (12/19/2019 5:00 AM CDT) [facility] WBC 6.5 3.8 - 9.9 X10 3/ul [facility] RBC 3.31(L) 4.30 - 5.80 x10 6/ul [facility] Hemoglobin 10.2(L) 13.0 - 17.5 g/dL [facility] Hct 32.1(L) 38.9 - 50.3 % [facility] MCV 97.0(H) 81.3 - 96.4 fl [facility] MCH 30.8 27.1 - 33.3 pg [facility] MCHC 31.8(L) 32.3 - 35.7 g/dl [facility] RDW 21.2(H) 11.1 - 14.9 % [facility] Plt Count 99(L) 150 - 400 x10 3/ul [facility] MPV 11.1 9.1 - 12.3 fl [facility] Neut % 81.6 % [facility] Immature Gran % 0.5 % [facility] Lymph % 6.3 % [facility] [place] % 9.7 % [facility] Eos % 1.1 % [facility] AUTO BASO % 0.8 % [facility] NEUTROPHIL ABS # 5.3 1.7 - 6.5 x10 3/ul [facility] Immature Gran # 0.0 0.0 - 0.1 x10 3/ul [facility] Absolute Lymphs (auto) 0.4(L) 0.8 - 3.3 x10 3/ul [facility] Absolute Monos (auto) 0.6 0.2 - 0.8 x10 3/ul [facility] Absolute Eos (auto) 0.1 0.0 - 0.5 x10 3/ul [facility] BASOPHIL ABS # 0.1 0.0 - 0.1 x10 3/ul [facility] Nucleat RBC Rel Count 0.3 #/100WBC [facility] NRBC abs 0.02(H) 0.00 - 0.01 x10 3/ul [facility] Absolute Neutrophils 5,300 200 - 8,000 /ul [facility] 12/19/2019 5:00 AM CDT 12/19/2019 5:11 AM CDT Narrative Resulting Agency Comment IN us Sherita Moss MD LAB BLOOD ORDERABLES Final Result [facility] [address] [place] [address], [facility] [phone] * US Abdomen Limited (12/19/2019 12:00 AM CDT) Anatomical Region Laterality Modality Abdomen N/A Ultrasound 12/19/2019 12:0 4 PM CDT Narrative 12/19/2019 12:06 PM CDT Patient Name: JARED BRUMFIELD JR ?Ordering Dr: Liborio Boswell MD ?? D.O.B: 1970 ? Exam Date: 12/19/19 ?? 0000 ?? Age: 49 ?Sex: Male ? MR#: [id number] ?? Loc: ??C254-01 ? RADIOLOGY REPORT ?? Order #[id number] ?? Ultrasound ? US Abdomen/Lmt Exam Spec [...] 12:06 PM ?? T: ? Report ID: [id number] ?? Reading Location: ??[id number] ? REPORT ELECTRONICALLY SIGNED IN OTHER VENDOR SYSTEM ?? Resulting Agency Comment I Procedure Note Yash Herr Jr., MD - 12/19/2019 Patient Name: JARED BRUMFIELD Eddie Chowdhury Dr: Liborio Boswell MD D.O.B: 1970 Exam Date: 12/19/19 0000 Age: 49 Sex: Male MR#: [id number] Loc: C254-01 RADIOLOGY REPORT Order #[id number] Ultrasound US Abdomen/Lmt Exam Spec Organ Signed [...] by Yash Herr M.D. T: Report ID: [id number] Reading Location: [place] [address] REPORT ELECTRONICALLY SIGNED IN OTHER VENDOR SYSTEM Liborio Boswell MD IMG US PROCEDURES Final Resul t * (ABNORMAL) Lactate (12/18/2019 2:28 PM CDT) LACTATE 3.2(HH) mmol/L [facility] Comment: CRITICAL VALUE CALLED and REPEATED. at:1527 12/18/19 by:Kenyon Canseco to:REJI DAVIDSON [id number] Lactate Reference Range: 0.5 - 2.2 mmol/L 12/18/2019 2:28 PM CDT 12/18/2019 2:32 PM CDT Narrative Resulting Agency Comment IN Liborio Boswell MD LAB BLOOD ORDERABLES Final Re sult [facility] [address] [place] [address], [facility] [phone] * Blood culture Blood (12/18/2019 10:20 AM CDT) CULTURE BLOOD ADULT (SET OF 2) NO GROWTH DAY 5 [facility] Blood 12/18/2019 10:2 0 AM CDT 12/18/2019 10:25 AM CDT Narrative [facility] - 12/23/2019 2:25 PM CDT BC Peripheral Draw BC Peripheral Draw Resulting Agency Comment BC Peripheral Draw ?BC Peripheral Draw ?? Liborio Boswell MD LAB MICROBIOLOGY - GENERAL OR DERABLES Final Result [address] [phone] * Blood culture Blood (12/18/2019 10:10 AM CDT) Pathologist [facility] CULTURE BLOOD ADULT (SET OF 2) NO GROWTH DAY 5 [facility] Blood 12/18/2019 10:1 0 AM CDT 12/18/2019 10:16 AM CDT Narrative [facility] - 12/23/2019 2:16 PM CDT BC Peripheral Draw Resulting Agency Comment BC Peripheral Draw ?? Liborio Boswell MD LAB MICROBIOLOGY - GENERAL OR DERABLES Final Result Performing Organization Address [facility]/ZIP Co de Phone Number [address] [phone] * (ABNORMAL) Lactate (12/18/2019 10:10 AM CDT) [facility] LACTATE 3.9(HH) mmol/L [facility] Comment: CRITICAL VALUE CALLED and REPEATED. at:1044 12/18/19 by:Isabella Callejas to:[place] [id number] Lactate Reference Range: 0.5 - 2.2 mmol/L 12/18/2019 10:1 0 AM CDT 12/18/2019 10:15 AM CDT Narrative [facility] - 12/18/2019 10:46 AM CDT BC Peripheral Draw Resulting Agency Comment IN Liborio Boswell MD LAB BLOOD ORDERABLES Final Re sult [address] [phone] * aPTT (12/18/2019 10:10 AM CDT) [facility] APTT 35 27 - 36 SECONDS [facility] 12/18/2019 10:1 0 AM CDT 12/18/2019 10:16 AM CDT [facility] - 12/18/2019 10:28 AM CDT BC Peripheral Draw Resulting Agency Comment IN Liborio Boswell MD LAB BLOOD ORDERABLES Final Re sult Performing Organization Address City/[facility]/ZIP Co de Phone Number [address] [phone] * (ABNORMAL) Protime-INR (12/18/2019 10:10 AM CDT) [facility] PT 23.4(H) 12.2 - 14.8 SECONDS [facility] INR 2.00 [facility] Comment: Recommended Therapeutic range for Oral Anticoagulant Therapy No anti-coagulation therapy ? Normal Range: ?0.8-1.4 Anti-coagulation therapy ? Low intensity therapy ?2.0-3.0 ? High intensity therapy ?? 2.5-3.5 Critical Value ? Greater than or equal to 5.0 Patients should be monitored for serious bleeding. 12/18/2019 10:1 0 AM CDT 12/18/2019 10:16 AM CDT [facility] - 12/18/2019 10:28 AM CDT BC Peripheral Draw Resulting Agency Comment IN Liborio Boswell MD LAB BLOOD ORDERABLES Final Re sult Performing Organization Address City/[facility]/ZIP Co de Phone Number [address] [phone] * Urine culture (12/18/2019 10:00 AM CDT) [facility] CULTURE URINE NO GROWTH DAY 2 <1,000 CFU/ML [facility] 12/18/2019 10:0 0 AM CDT 12/18/2019 10:32 AM CDT Liborio Boswell MD LAB MICROBIOLOGY - GENERAL OR DERABLES Final Result [facility] [address] [place] [address], [facility] [phone] * (ABNORMAL) URINALYSIS, COMPLETE W/REFLEX TO CULTURE (12/18/2019 10:00 AM CDT) Ur Collection Type INDWELLING CATH [facility] Ur Culture Indicated? C S INDICATED [facility] Comment: Culture report to follow. Urine Color RED YELLOW [facility] Urine Clarity CLOUDY CLEAR [facility] Urine Glucose (UA) NORMAL NORMAL mg/dL [facility] Urine Bilirubin NEGATIVE NEGATIVE mg/dl [facility] Urine Ketones 5(A) NEGATIVE mg/dL [facility] Ur Specific Shaw 1.035(H) 1.005 - 1.025 [facility] Urine Blood >=1.0 NEGATIVE mg/dl [facility] Urine pH 5.0 5.0 - 8.0 [facility] Urine Protein 100(A) NEGATIVE mg/dL [facility] Urine Urobilinogen NORMAL NORMAL mg/dL [facility] Urine Nitrite NEGATIVE NEGATIVE [facility] Ur Leukocyte Esterase NEGATIVE NEGATIVE Jimmy/ul [facility] Ur Microscopic Review Indicated or Ordered [facility] Urine RBC 6738 0 - 2 /HPF [facility] Urine WBC 104 0 - 2 /HPF [facility] Urine Mucus Marked /LPF [facility] 12/18/2019 10:0 0 AM CDT 12/18/2019 10:32 AM CDT Narrative [facility] - 12/18/2019 10:42 AM CDT Indication(s) for ordering ?? Dysuria lf Indwelling catheter Resulting Agency Comment IN us Liborio Boswell MD LAB URINE ORDERABLES Final Re sult Performing Organization Address City/[facility]/ZIP Co de Phone Number [address] [phone] * Magnesium (12/18/2019 5:38 AM CDT) Magnesium 1.8 1.6 - 2.6 mg/dL [facility] Comment: Magnesium sulfate therapy: ??3.0-9.1 mg/dL 12/18/2019 5:38 AM CDT 12/18/2019 5:57 AM CDT Narrative Resulting Agency Comment IN Sherita Moss MD LAB BLOOD ORDERABLES Final Result Performing Organization Address [facility]/[place] Co de Phone Number [address] [phone] * (ABNORMAL) Comprehensive metabolic panel (12/18/2019 5:38 AM CDT) Sodium 130(L) 135 - 145 mmol/L [facility] Potassium 3.8 3.3 - 5.1 mmol/L [facility] Chloride 98 96 - 108 mmol/L [facility] Carbon Dioxide 21(L) 22 - 32 mmol/L [facility] Anion Gap 11 7 - 16 [facility] Glucose 139(H) 70 - 100 mg/dL [facility] BUN 10 8 - 25 mg/dL [facility] Creatinine 0.6 0.5 - 1.3 mg/dL [facility] Comment: The specimen is icteric. ??A high bilirubin level is known to cause a false decrease in measured creatinine. NOTE: Estimated GFR (Cockroft-Gault) will NOT be calculated unless patient Height and Weight were entered. Also, Kidney Disease Stage (GFR) and Estimated GFR (Cockroft-Gault) will NOT be calculated if Creatinine result is <0.2. Kidney Disease Stage >90 mL/MIN [facility] Comment: NOTE; ??The GFR is an [...] on dialysis Est GFR (Cockcroft-G) 169 ml/MIN [facility] Comment: Estimated GFR(Cockroft-Gault)is used to calculate patient medication dosage Calcium 8.6 8.6 - 10.3 mg/dL [facility] Total Protein 7.3 6.4 - 8.3 g/dL [facility] Albumin 2.3(L) 3.5 - 5.0 g/dL [facility] Globulin 5.0(H) 2.3 - 3.5 gm/dL [facility] Albumin/Globulin Ratio 0.5(L) 1.1 - 1.8 [facility] Total Bilirubin 3.4(H) 0.0 - 1.2 mg/dL [facility] AST 89(H) 0 - 40 U/L [facility] ALT 27 0 - 41 U/L [facility] Alkaline Phosphatase 102 40 - 129 U/L [facility] 12/18/2019 5:38 AM CDT 12/18/2019 5:57 AM CDT Narrative Resulting Agency Comment IN us Sherita Moss MD LAB BLOOD ORDERABLES Final Result [facility] [address] [place] [address], [facility] [phone] * (ABNORMAL) CBC with auto differential (12/18/2019 5:38 AM CDT) WBC 5.1 3.8 - 9.9 X10 3/ul [facility] RBC 3.38(L) 4.30 - 5.80 x10 6/ul [facility] Hemoglobin 10.4(L) 13.0 - 17.5 g/dL [facility] Hct 31.4(L) 38.9 - 50.3 % [facility] MCV 92.9 81.3 - 96.4 fl [facility] MCH 30.8 27.1 - 33.3 pg [facility] MCHC 33.1 32.3 - 35.7 g/dl [facility] RDW 21.5(H) 11.1 - 14.9 % [facility] Plt Count 92(L) 150 - 400 x10 3/ul [facility] MPV 10.9 9.1 - 12.3 fl [facility] Neut % 62.2 % [facility] Immature Gran % 0.2 % [facility] Lymph % 14.6 % [facility] [place] % 20.1 % [facility] Eos % 2.1 % [facility] AUTO BASO % 0.8 % [facility] NEUTROPHIL ABS # 3.2 1.7 - 6.5 x10 3/ul [facility] Immature Gran # 0.0 0.0 - 0.1 x10 3/ul [facility] Absolute Lymphs (auto) 0.8 0.8 - 3.3 x10 3/ul [facility] Absolute Monos (auto) 1.0(H) 0.2 - 0.8 x10 3/ul [facility] Absolute Eos (auto) 0.1 0.0 - 0.5 x10 3/ul [facility] BASOPHIL ABS # 0.0 0.0 - 0.1 x10 3/ul [facility] Nucleat RBC Rel Count 0.0 #/100WBC [facility] NRBC abs 0.00 0.00 - 0.01 x10 3/ul [facility] Absolute Neutrophils 3,200 200 - 8,000 /ul [facility] 12/18/2019 5:38 AM CDT 12/18/2019 5:57 AM CDT Narrative Resulting Agency Comment IN us Sherita Moss MD LAB BLOOD ORDERABLES Final Result Performing Organization Address City/State/[place] Co de Phone Number [facility] [address] [phone] * XR Chest 1 View (12/18/2019 12:00 AM CDT) Anatomical Region Laterality Modality Body, Chest N/A Radiographic Lynette ging 12/18/2019 10:2 6 AM CDT Narrative 12/18/2019 10:27 AM CDT Patient Name: JARED BRUMFIELD JR ?Ordering Dr: Liborio Boswell MD ?? D.O.B: 1970 ? Exam Date: 12/18/19 ?? 0000 ?? Age: 49 ?Sex: Male ? MR#: [id number] ?? Loc: ??C254-01 ? RADIOLOGY REPORT ?? Order #[id number] ?? Radiology ? Chest 1 View Portable [...] 10:27 AM ?? T: ? Report ID: [id number] ?? Reading Location: ??[id number] ? REPORT ELECTRONICALLY SIGNED IN OTHER VENDOR SYSTEM ?? Resulting Agency Comment I Procedure Note Jone Cody, - 12/18/2019 Patient Name: JARED BRUMFIELD Dr: Liborio Boswell MD DDenisODenisB: 1970 Exam Date: 12/18/19 0000 Age: 49 Sex: Male MR#: [id number] Loc: C254-01 RADIOLOGY REPORT Order #[id number] Radiology Chest 1 View Portable Signed EXAM [...] 10:27 AM - Electronically signed by Jone Cdoy D.O. PS T: Report ID: [id number] Reading Location: [id number] REPORT ELECTRONICALLY SIGNED IN OTHER VENDOR SYSTEM us Liborio Boswell MD IMG XR PROCEDURES Final Resul t * Magnesium (12/17/2019 5:23 AM CDT) Magnesium 1.7 1.6 - 2.6 mg/dL [facility] Comment: Magnesium sulfate therapy: ??3.0-9.1 mg/dL 12/17/2019 5:23 AM CDT 12/17/2019 6:14 AM CDT Narrative Resulting Agency Comment IN Sherita Moss MD LAB BLOOD ORDERABLES Final Result [facility] [address] [place] [address], [facility] [phone] * (ABNORMAL) Comprehensive metabolic panel (12/17/2019 5:23 AM CDT) Sodium 133(L) 135 - 145 mmol/L [facility] Potassium 3.5 3.3 - 5.1 mmol/L [facility] Chloride 101 96 - 108 mmol/L [facility] Carbon Dioxide 23 22 - 32 mmol/L [facility] Anion Gap 9 7 - 16 [facility] Glucose 130(H) 70 - 100 mg/dL [facility] BUN 10 8 - 25 mg/dL [facility] Creatinine 0.6 0.5 - 1.3 mg/dL [facility] Comment: The specimen is icteric. ??A high bilirubin level is known to cause a false decrease in measured creatinine. NOTE: Estimated GFR (Cockroft-Gault) will NOT be calculated unless patient Height and Weight were entered. Also, Kidney Disease Stage (GFR) and Estimated GFR (Cockroft-Gault) will NOT be calculated if Creatinine result is <0.2. Kidney Disease Stage >90 mL/MIN [facility] Comment: NOTE; ??The GFR is an [...] on dialysis Est GFR (Cockcroft-G) 169 ml/MIN [facility] Comment: Estimated GFR(Cockroft-Gault)is used to calculate patient medication dosage Calcium 8.3(L) 8.6 - 10.3 mg/dL [facility] Total Protein 6.7 6.4 - 8.3 g/dL [facility] Albumin 2.0(L) 3.5 - 5.0 g/dL [facility] Globulin 4.7(H) 2.3 - 3.5 gm/dL [facility] Albumin/Globulin Ratio 0.4(L) 1.1 - 1.8 [facility] Total Bilirubin 3.6(H) 0.0 - 1.2 mg/dL [facility] AST 93(H) 0 - 40 U/L [facility] ALT 25 0 - 41 U/L [facility] Alkaline Phosphatase 100 40 - 129 U/L [facility] 12/17/2019 5:23 AM CDT 12/17/2019 6:14 AM CDT Narrative Resulting Agency Comment IN us Sherita Moss MD LAB BLOOD ORDERABLES Final Result [facility] [address] [place] [address], [facility] [phone] * (ABNORMAL) CBC with auto differential (12/17/2019 5:23 AM CDT) WBC 5.3 3.8 - 9.9 X10 3/ul [facility] RBC 3.24(L) 4.30 - 5.80 x10 6/ul [facility] Hemoglobin 10.1(L) 13.0 - 17.5 g/dL [facility] Hct 30.5(L) 38.9 - 50.3 % [facility] MCV 94.1 81.3 - 96.4 fl [facility] MCH 31.2 27.1 - 33.3 pg [facility] MCHC 33.1 32.3 - 35.7 g/dl [facility] RDW 21.4(H) 11.1 - 14.9 % [facility] Plt Count 73(L) 150 - 400 x10 3/ul [facility] MPV 11.0 9.1 - 12.3 fl [facility] Neut % 61.6 % [facility] Immature Gran % 0.4 % [facility] Lymph % 15.0 % [facility] [place] % 20.3 % [facility] Eos % 1.9 % [facility] AUTO BASO % 0.8 % [facility] NEUTROPHIL ABS # 3.3 1.7 - 6.5 x10 3/ul [facility] Immature Gran # 0.0 0.0 - 0.1 x10 3/ul [facility] Absolute Lymphs (auto) 0.8 0.8 - 3.3 x10 3/ul [facility] Absolute Monos (auto) 1.1(H) 0.2 - 0.8 x10 3/ul [facility] Absolute Eos (auto) 0.1 0.0 - 0.5 x10 3/ul [facility] BASOPHIL ABS # 0.0 0.0 - 0.1 x10 3/ul [facility] Nucleat RBC Rel Count 0.0 #/100WBC [facility] NRBC abs 0.00 0.00 - 0.01 x10 3/ul [facility] Absolute Neutrophils 3,300 200 - 8,000 /ul [facility] 12/17/2019 5:23 AM CDT 12/17/2019 6:15 AM CDT Narrative Resulting Agency Comment IN Sherita Moss MD LAB BLOOD ORDERABLES Final Result Performing Organization Address [facility] Co de Phone Number [address] [phone] * Hemoglobin A1c (12/16/2019 6:22 AM CDT) Hemoglobin A1c % 4.5 4.0 - 5.6 % [facility] Comment: ADA 2016 GUIDELINES: ??Initial Diagnostic Criteria ? HbA1c Result: ?Interpretation: ?<5.7% ? Normal ?5.7-6.4% ?At risk for diabetes mellitus ?>=6.5% ?Consistent with diabetes mellitus ??Diabetes monitoring ? Target value (ADA Recommended) ?? <7% 12/16/2019 6:22 AM CDT 12/16/2019 7:03 AM CDT Narrative Resulting Agency Comment IN Result [facility] Sherita Moss MD LAB BLOOD ORDERABLES Final Result Performing Organization Address [facility] [facility] Co de Phone Number [address] [phone] * Magnesium (12/16/2019 6:22 AM CDT) Magnesium 1.7 1.6 - 2.6 mg/dL [facility] Comment: Magnesium sulfate therapy: ??3.0-9.1 mg/dL 12/16/2019 6:22 AM CDT 12/16/2019 7:03 AM CDT Narrative Resulting Agency Comment IN Sherita Moss MD LAB BLOOD ORDERABLES Final Result [facility] [address] [place] [address], [facility] [phone] * (ABNORMAL) Comprehensive metabolic panel (12/16/2019 6:22 AM CDT) Sodium 134(L) 135 - 145 mmol/L [facility] Potassium 3.5 3.3 - 5.1 mmol/L [facility] Chloride 103 96 - 108 mmol/L [facility] Carbon Dioxide 24 22 - 32 mmol/L [facility] Anion Gap 7 7 - 16 [facility] Glucose 117(H) 70 - 100 mg/dL [facility] BUN 8 8 - 25 mg/dL [facility] Creatinine 0.5 0.5 - 1.3 mg/dL [facility] Comment: The specimen is icteric. ??A high bilirubin level is known to cause a false decrease in measured creatinine. NOTE: Estimated GFR (Cockroft-Gault) will NOT be calculated unless patient Height and Weight were entered. Also, Kidney Disease Stage (GFR) and Estimated GFR (Cockroft-Gault) will NOT be calculated if Creatinine result is <0.2. Kidney Disease Stage >90 mL/MIN [facility] Comment: NOTE; ??The GFR is an [...] on dialysis Est GFR (Cockcroft-G) 202 ml/MIN [facility] Comment: Estimated GFR(Cockroft-Gault)is used to calculate patient medication dosage Calcium 8.0(L) 8.6 - 10.3 mg/dL [facility] Total Protein 6.5 6.4 - 8.3 g/dL [facility] Albumin 2.2(L) 3.5 - 5.0 g/dL [facility] Globulin 4.3(H) 2.3 - 3.5 gm/dL [facility] Albumin/Globulin Ratio 0.5(L) 1.1 - 1.8 [facility] Total Bilirubin 3.3(H) 0.0 - 1.2 mg/dL [facility] AST 117(H) 0 - 40 U/L [facility] ALT 27 0 - 41 U/L [facility] Alkaline Phosphatase 103 40 - 129 U/L [facility] 12/16/2019 6:22 AM CDT 12/16/2019 7:03 AM CDT Narrative Resulting Agency Comment IN us Sherita Moss MD LAB BLOOD ORDERABLES Final Result [facility] [address] [place], [place] [id number] [place] [address] * (ABNORMAL) Protime-INR (12/16/2019 6:22 AM CDT) PT 23.3(H) 12.2 - 14.8 SECONDS [facility] INR 1.98 [facility] Comment: Recommended Therapeutic range for Oral [...] Moss MD LAB BLOOD ORDERABLES Final Result [facility] [address] [place] [address], [facility] [phone] * (ABNORMAL) CBC with auto differential (12/16/2019 6:22 AM CDT) WBC 4.2 3.8 - 9.9 X10 3/ul [facility] RBC 3.23(L) 4.30 - 5.80 x10 6/ul [facility] Hemoglobin 9.8(L) 13.0 - 17.5 g/dL [facility] Hct 29.3(L) 38.9 - 50.3 % [facility] MCV 90.7 81.3 - 96.4 fl [facility] MCH 30.3 27.1 - 33.3 pg [facility] MCHC 33.4 32.3 - 35.7 g/dl [facility] RDW 22.4(H) 11.1 - 14.9 % [facility] Plt Count 65(L) 150 - 400 x10 3/ul [facility] MPV 10.9 9.1 - 12.3 fl [facility] Neut % 62.1 % [facility] Immature Gran % 0.2 % [facility] Lymph % 16.4 % [facility] [place] % 18.1 % [facility] Eos % 2.2 % [facility] AUTO BASO % 1.0 % [facility] NEUTROPHIL ABS # 2.6 1.7 - 6.5 x10 3/ul [facility] Immature Gran # 0.0 0.0 - 0.1 x10 3/ul [facility] Absolute Lymphs (auto) 0.7(L) 0.8 - 3.3 x10 3/ul [facility] Absolute Monos (auto) 0.8 0.2 - 0.8 x10 3/ul [facility] Absolute Eos (auto) 0.1 0.0 - 0.5 x10 3/ul [facility] BASOPHIL ABS # 0.0 0.0 - 0.1 x10 3/ul [facility] Nucleat RBC Rel Count 0.0 #/100WBC [facility] NRBC abs 0.00 0.00 - 0.01 x10 3/ul [facility] Absolute Neutrophils 2,600 200 - 8,000 /ul [facility] 12/16/2019 6:22 AM CDT 12/16/2019 7:03 AM CDT Narrative Resulting Agency Comment IN us Sherita Moss MD LAB BLOOD ORDERABLES Final Result [address] [phone] * (ABNORMAL) Bilirubin, direct (12/15/2019 4:55 AM CDT) Direct Bilirubin 1.66(H) 0.00 - 0.25 mg/dL [facility] 12/15/2019 4:55 AM CDT 12/15/2019 5:07 AM CDT Narrative Resulting Agency Comment IN Sherita Moss MD LAB BLOOD ORDERABLES Final Result [address] [phone] * (ABNORMAL) Comprehensive metabolic panel (12/15/2019 4:55 AM CDT) Sodium 136 135 - 145 mmol/L [facility] Potassium 3.3 3.3 - 5.1 mmol/L [facility] Chloride 106 96 - 108 mmol/L [facility] Carbon Dioxide 23 22 - 32 mmol/L [facility] Anion Gap 7 7 - 16 [facility] Glucose 105(H) 70 - 100 mg/dL [facility] BUN 8 8 - 25 mg/dL [facility] Creatinine 0.5 0.5 - 1.3 mg/dL [facility] Comment: The specimen is icteric. ??A high bilirubin level is known to cause a false decrease in measured creatinine. NOTE: Estimated GFR (Cockroft-Gault) will NOT be calculated unless patient Height and Weight were entered. Also, Kidney Disease Stage (GFR) and Estimated GFR (Cockroft-Gault) will NOT be calculated if Creatinine result is <0.2. Kidney Disease Stage >90 mL/MIN [facility] Comment: NOTE; ??The GFR is an [...] on dialysis Est GFR (Cockcroft-G) 202 ml/MIN [facility] Comment: Estimated GFR(Cockroft-Gault)is used to calculate patient medication dosage Calcium 7.5(L) 8.6 - 10.3 mg/dL [facility] Total Protein 6.0(L) 6.4 - 8.3 g/dL [facility] Albumin 1.9(L) 3.5 - 5.0 g/dL [facility] Globulin 4.1(H) 2.3 - 3.5 gm/dL [facility] Albumin/Globulin Ratio 0.5(L) 1.1 - 1.8 [facility] Total Bilirubin 2.9(H) 0.0 - 1.2 mg/dL [facility] AST 128(H) 0 - 40 U/L [facility] ALT 26 0 - 41 U/L [facility] Alkaline Phosphatase 97 40 - 129 U/L [facility] 12/15/2019 4:55 AM CDT 12/15/2019 5:07 AM CDT Narrative Resulting Agency Comment IN Sherita Moss MD LAB BLOOD ORDERABLES Final Result [facility] [address] [place] [address], [facility] [phone] * (ABNORMAL) CBC with auto differential (12/15/2019 4:55 AM CDT) WBC 3.3(L) 3.8 - 9.9 X10 3/ul [facility] RBC 3.06(L) 4.30 - 5.80 x10 6/ul [facility] Hemoglobin 9.4(L) 13.0 - 17.5 g/dL [facility] Hct 29.1(L) 38.9 - 50.3 % [facility] MCV 95.1 81.3 - 96.4 fl [facility] MCH 30.7 27.1 - 33.3 pg [facility] MCHC 32.3 32.3 - 35.7 g/dl [facility] RDW 21.4(H) 11.1 - 14.9 % [facility] Plt Count 59(L) 150 - 400 x10 3/ul [facility] MPV 11.0 9.1 - 12.3 fl [facility] Neut % 53.0 % [facility] Immature Gran % 0.3 % [facility] Lymph % 23.8 % [facility] [place] % 18.0 % [facility] Eos % 3.7 % [facility] AUTO BASO % 1.2 % [facility] NEUTROPHIL ABS # 1.7 1.7 - 6.5 x10 3/ul [facility] Immature Gran # 0.0 0.0 - 0.1 x10 3/ul [facility] Absolute Lymphs (auto) 0.8 0.8 - 3.3 x10 3/ul [facility] Absolute Monos (auto) 0.6 0.2 - 0.8 x10 3/ul [facility] Absolute Eos (auto) 0.1 0.0 - 0.5 x10 3/ul [facility] BASOPHIL ABS # 0.0 0.0 - 0.1 x10 3/ul [facility] Nucleat RBC Rel Count 0.0 #/100WBC [facility] NRBC abs 0.00 0.00 - 0.01 x10 3/ul [facility] Absolute Neutrophils 1,700 200 - 8,000 /ul [facility] 12/15/2019 4:55 AM CDT 12/15/2019 5:07 AM CDT Narrative Resulting Agency Comment IN us Sherita Moss MD LAB BLOOD ORDERABLES Final Result [facility] [address] [place] [address], [facility] [phone] * (ABNORMAL) Bilirubin, direct (12/14/2019 6:45 AM CDT) Direct Bilirubin 2.15(H) 0.00 - 0.25 mg/dL [facility] 12/14/2019 6:45 AM CDT 12/14/2019 7:03 AM CDT Narrative Resulting Agency Comment IN Sherita Moss MD LAB BLOOD ORDERABLES Final Result [facility] [address] [phone] * (ABNORMAL) Comprehensive metabolic panel (12/14/2019 6:45 AM CDT) Pathologist [facility] Sodium 136 135 - 145 mmol/L [facility] Potassium 3.4 3.3 - 5.1 mmol/L [facility] Chloride 106 96 - 108 mmol/L [facility] Carbon Dioxide 24 22 - 32 mmol/L [facility] Anion Gap 6(L) 7 - 16 [facility] Glucose 145(H) 70 - 100 mg/dL [facility] BUN 8 8 - 25 mg/dL [facility] Creatinine 0.4(L) 0.5 - 1.3 mg/dL [facility] Comment: The specimen is icteric. ??A high bilirubin level is known to cause a false decrease in measured creatinine. NOTE: Estimated GFR (Cockroft-Gault) will NOT be calculated unless patient Height and Weight were entered. Also, Kidney Disease Stage (GFR) and Estimated GFR (Cockroft-Gault) will NOT be calculated if Creatinine result is <0.2. Kidney Disease Stage >90 mL/MIN [facility] Comment: NOTE; ??The GFR is an [...] on dialysis Est GFR (Cockcroft-G) 253 ml/MIN [facility] Comment: Estimated GFR(Cockroft-Gault)is used to calculate patient medication dosage Calcium 8.0(L) 8.6 - 10.3 mg/dL [facility] Total Protein 6.8 6.4 - 8.3 g/dL [facility] Albumin 2.3(L) 3.5 - 5.0 g/dL [facility] Globulin 4.5(H) 2.3 - 3.5 gm/dL [facility] Albumin/Globulin Ratio 0.5(L) 1.1 - 1.8 [facility] Total Bilirubin 3.7(H) 0.0 - 1.2 mg/dL [facility] AST 164(H) 0 - 40 U/L [facility] ALT 31 0 - 41 U/L [facility] Alkaline Phosphatase 111 40 - 129 U/L [facility] 12/14/2019 6:45 AM CDT 12/14/2019 7:03 AM CDT Narrative Resulting Agency Comment IN us Sherita Moss MD LAB BLOOD ORDERABLES Final Result [facility] [address] [phone] * Ammonia (12/14/2019 6:45 AM CDT) AMMONIA 51 9 - 85 ug/dL [facility] 12/14/2019 6:45 AM CDT 12/14/2019 7:01 AM CDT Narrative Resulting Agency Comment IN us Sherita Moss MD LAB BLOOD ORDERABLES Final Result [place] [address] [address] [phone] * (ABNORMAL) CBC with auto differential (12/14/2019 6:45 AM CDT) WBC 3.7(L) 3.8 - 9.9 X10 3/ul [facility] RBC 3.39(L) 4.30 - 5.80 x10 6/ul [facility] Hemoglobin 10.2(L) 13.0 - 17.5 g/dL [facility] Hct 31.2(L) 38.9 - 50.3 % [facility] MCV 92.0 81.3 - 96.4 fl [facility] MCH 30.1 27.1 - 33.3 pg [facility] MCHC 32.7 32.3 - 35.7 g/dl [facility] RDW 21.9(H) 11.1 - 14.9 % [facility] Plt Count 56(L) 150 - 400 x10 3/ul [facility] MPV 9.7 9.1 - 12.3 fl [facility] Neut % 62.2 % [facility] Immature Gran % 0.3 % [facility] Lymph % 18.5 % [facility] [place] % 15.2 % [facility] Eos % 2.7 % [facility] AUTO BASO % 1.1 % [facility] NEUTROPHIL ABS # 2.3 1.7 - 6.5 x10 3/ul [facility] Immature Gran # 0.0 0.0 - 0.1 x10 3/ul [facility] Absolute Lymphs (auto) 0.7(L) 0.8 - 3.3 x10 3/ul [facility] Absolute Monos (auto) 0.6 0.2 - 0.8 x10 3/ul [facility] Absolute Eos (auto) 0.1 0.0 - 0.5 x10 3/ul [facility] BASOPHIL ABS # 0.0 0.0 - 0.1 x10 3/ul [facility] Nucleat RBC Rel Count 0.0 #/100WBC [facility] NRBC abs 0.00 0.00 - 0.01 x10 3/ul [facility] Absolute Neutrophils 2,300 200 - 8,000 /ul [facility] 12/14/2019 6:45 AM CDT 12/14/2019 7:03 AM CDT Narrative Resulting Agency Comment IN us Sherita Moss MD LAB BLOOD ORDERABLES Final Result [address] [phone] * Magnesium (12/13/2019 5:51 AM CDT) Magnesium 1.8 1.6 - 2.6 mg/dL [facility] Comment: Magnesium sulfate therapy: ??3.0-9.1 mg/dL 12/13/2019 5:51 AM CDT 12/13/2019 6:05 AM CDT Narrative Resulting Agency Comment IN Sherita Moss MD LAB BLOOD ORDERABLES Final Result [address] [phone] * (ABNORMAL) Bilirubin, direct (12/13/2019 5:51 AM CDT) Direct Bilirubin 2.54(H) 0.00 - 0.25 mg/dL [facility] 12/13/2019 5:51 AM CDT 12/13/2019 6:05 AM CDT Narrative Resulting Agency Comment IN Sherita Moss MD LAB BLOOD ORDERABLES Final Result [facility] [address] [place] [address], [facility] [phone] * (ABNORMAL) Comprehensive metabolic panel (12/13/2019 5:51 AM CDT) Pathologist [facility] Sodium 137 135 - 145 mmol/L [facility] Potassium 3.4 3.3 - 5.1 mmol/L [facility] Chloride 105 96 - 108 mmol/L [facility] Carbon Dioxide 24 22 - 32 mmol/L [facility] Anion Gap 8 7 - 16 [facility] Glucose 103(H) 70 - 100 mg/dL [facility] BUN 9 8 - 25 mg/dL [facility] Creatinine 0.5 0.5 - 1.3 mg/dL [facility] Comment: The specimen is icteric. ??A high bilirubin level is known to cause a false decrease in measured creatinine. NOTE: Estimated GFR (Cockroft-Gault) will NOT be calculated unless patient Height and Weight were entered. Also, Kidney Disease Stage (GFR) and Estimated GFR (Cockroft-Gault) will NOT be calculated if Creatinine result is <0.2. Kidney Disease Stage >90 mL/MIN [facility] Comment: NOTE; ??The GFR is an [...] on dialysis Est GFR (Cockcroft-G) 202 ml/MIN [facility] Comment: Estimated GFR(Cockroft-Gault)is used to calculate patient medication dosage Calcium 7.6(L) 8.6 - 10.3 mg/dL [facility] Total Protein 6.4 6.4 - 8.3 g/dL [facility] Albumin 2.0(L) 3.5 - 5.0 g/dL [facility] Globulin 4.4(H) 2.3 - 3.5 gm/dL [facility] Albumin/Globulin Ratio 0.5(L) 1.1 - 1.8 [facility] Total Bilirubin 4.3(H) 0.0 - 1.2 mg/dL [facility] AST 154(H) 0 - 40 U/L [facility] ALT 27 0 - 41 U/L [facility] Alkaline Phosphatase 103 40 - 129 U/L [facility] 12/13/2019 5:51 AM CDT 12/13/2019 6:05 AM CDT Narrative Resulting Agency Comment IN us Sherita Moss MD LAB BLOOD ORDERABLES Final Result [facility] [address] [place] [address], [facility] [phone] * (ABNORMAL) Ammonia (12/13/2019 5:51 AM CDT) AMMONIA 96(H) 9 - 85 ug/dL [facility] 12/13/2019 5:51 AM CDT 12/13/2019 6:05 AM CDT Narrative Resulting Agency Comment IN Sherita Moss MD LAB BLOOD ORDERABLES Final Result [facility] [address] [phone] * (ABNORMAL) CBC with auto differential (12/13/2019 5:51 AM CDT) WBC 4.3 3.8 - 9.9 X10 3/ul [facility] Comment: Results reviewed RBC 2.92(L) 4.30 - 5.80 x10 6/ul [facility] Hemoglobin 8.7(L) 13.0 - 17.5 g/dL [facility] Hct 26.8(L) 38.9 - 50.3 % [facility] MCV 91.8 81.3 - 96.4 fl [facility] MCH 29.8 27.1 - 33.3 pg [facility] MCHC 32.5 32.3 - 35.7 g/dl [facility] RDW 21.9(H) 11.1 - 14.9 % [facility] Plt Count 54(L) 150 - 400 x10 3/ul [facility] MPV 9.8 9.1 - 12.3 fl [facility] Neut % 65.5 % [facility] Immature Gran % 0.2 % [facility] Lymph % 14.8 % [facility] [place] % 16.5 % [facility] Eos % 2.1 % [facility] AUTO BASO % 0.9 % [facility] NEUTROPHIL ABS # 2.8 1.7 - 6.5 x10 3/ul [facility] Immature Gran # 0.0 0.0 - 0.1 x10 3/ul [facility] Absolute Lymphs (auto) 0.6(L) 0.8 - 3.3 x10 3/ul [facility] Absolute Monos (auto) 0.7 0.2 - 0.8 x10 3/ul [facility] Absolute Eos (auto) 0.1 0.0 - 0.5 x10 3/ul [facility] BASOPHIL ABS # 0.0 0.0 - 0.1 x10 3/ul [facility] Nucleat RBC Rel Count 0.0 #/100WBC [facility] NRBC abs 0.00 0.00 - 0.01 x10 3/ul [facility] Absolute Neutrophils 2,800 200 - 8,000 /ul [facility] 12/13/2019 5:51 AM CDT 12/13/2019 6:05 AM CDT Narrative Resulting Agency Comment IN us Sherita Moss MD LAB BLOOD ORDERABLES Final Result [facility] [address] [place] [address], [facility] [phone] * (ABNORMAL) Protime-INR (12/13/2019 5:51 AM CDT) PT 26.9(H) 12.2 - 14.8 SECONDS [facility] INR 2.38 [facility] Comment: Recommended Therapeutic range for Oral [...] BLOOD ORDERABLES Final Result Performing Organization Address City/[facility]/ZIP Co de Phone Number [address] [phone] * Ammonia (12/12/2019 7:01 AM CDT) AMMONIA 50 9 - 85 ug/dL [facility] 12/12/2019 7:01 AM CDT 12/12/2019 7:08 AM CDT Narrative Resulting Agency Comment IN us Meir Irving MD LAB BLOOD ORDERABLES Final Result Performing Organization Address [facility]/[place] Co de Phone Number [address] [phone] * (ABNORMAL) TSH+Free T4 (12/12/2019 5:29 AM CDT) TSH 5.850(H) 0.27 - 4.20 uIU/mL [facility] Free T4 0.87(L) 0.93 - 1.70 ng/dL [facility] 12/12/2019 5:29 AM CDT 12/12/2019 5:37 AM CDT Narrative Resulting Agency Comment IN us Bibi Crews DO LAB BLOOD ORDERABLES Final Re sult Performing Organization Address City/[facility]/ZIP Co de Phone Number [address] [phone] * (ABNORMAL) Vitamin D 25 hydroxy (12/12/2019 5:29 AM CDT) 25-OH Vitamin D Total 23(L) 30 - 80 ng/mL [facility] 12/12/2019 5:29 AM CDT 12/12/2019 5:37 AM CDT Narrative Resulting Agency Comment IN us Bibi Crews DO LAB BLOOD ORDERABLES Final Re sult [place] [address] [place] [address], [facility] [phone] * (ABNORMAL) Vitamin B12 and Folate (12/12/2019 5:29 AM CDT) Vitamin B12 1,769(H) 230 - 1,250 pg/mL [facility] Folate 10.3 ng/mL [facility] Comment: Reference Range ??> 5.0 ng/mL Folate has been standardized against the WHO International Standard [facility] code: 03/178 12/12/2019 5:29 AM CDT 12/12/2019 5:37 AM CDT Narrative Resulting Agency Comment IN us Bibi Crews DO LAB BLOOD ORDERABLES Final Re sult Performing Organization Address [facility]/[place] [address], [facility] [phone] * (ABNORMAL) Iron profile w/ IBC (12/12/2019 5:29 AM CDT) Iron 68 59 - 158 ug/dL [facility] TIBC 149(L) 228 - 428 ug/dL [facility] Transferrin % Sat 46 20 - 50 % [facility] 12/12/2019 5:29 AM CDT 12/12/2019 5:37 AM CDT Narrative Resulting Agency Comment IN Bibi Crews DO LAB BLOOD ORDERABLES Final Re sult [place] [address] [address] [phone] * Phosphorus (12/12/2019 5:29 AM CDT) Pathologist [facility] Phosphorus 2.5 2.3 - 4.5 mg/dL [facility] Comment: Results reviewed 12/12/2019 5:29 AM CDT 12/12/2019 5:37 AM CDT Narrative Resulting Agency Comment IN Bibi Crews DO LAB BLOOD ORDERABLES Final Re sult Performing Organization Address [facility]/ZIP Co de Phone Number [address] [phone] * (ABNORMAL) Magnesium (12/12/2019 5:29 AM CDT) Pathologist [facility] Magnesium 1.5(L) 1.6 - 2.6 mg/dL [facility] Comment: Magnesium sulfate therapy: ??3.0-9.1 mg/dL 12/12/2019 5:29 AM CDT 12/12/2019 5:37 AM CDT Narrative Resulting Agency Comment IN Bibi Crews DO LAB BLOOD ORDERABLES Final Re sult Performing Organization Address [facility]/ZIP Co de Phone Number [address] [phone] * (ABNORMAL) Basic metabolic panel (12/12/2019 5:29 AM CDT) Pathologist [facility] Sodium 138 135 - 145 mmol/L [facility] Potassium 3.5 3.3 - 5.1 mmol/L [facility] Chloride 102 96 - 108 mmol/L [facility] Carbon Dioxide 27 22 - 32 mmol/L [facility] Anion Gap 9 7 - 16 [facility] Glucose 118(H) 70 - 100 mg/dL [facility] BUN 7(L) 8 - 25 mg/dL [facility] Creatinine 0.4(L) 0.5 - 1.3 mg/dL [facility] Comment: The specimen is icteric. ??A high bilirubin level is known to cause a false decrease in measured creatinine. NOTE: Estimated GFR (Cockroft-Gault) will NOT be calculated unless patient Height and Weight were entered. Also, Kidney Disease Stage (GFR) and Estimated GFR (Cockroft-Gault) will NOT be calculated if Creatinine result is <0.2. Kidney Disease Stage >90 mL/MIN [facility] Comment: NOTE; ??The GFR is an [...] on dialysis Est GFR (Cockcroft-G) 253 ml/MIN [facility] Comment: Estimated GFR(Cockroft-Gault)is used to calculate patient medication dosage Calcium 8.1(L) 8.6 - 10.3 mg/dL [facility] 12/12/2019 5:29 AM CDT 12/12/2019 5:37 AM CDT Narrative Resulting Agency Comment IN us Bibi Crews DO LAB BLOOD ORDERABLES Final Re sult [facility] [address] [phone] * Lipase (12/12/2019 5:29 AM CDT) Lipase 46 13 - 60 U/L [facility] 12/12/2019 5:29 AM CDT 12/12/2019 5:37 AM CDT Narrative Resulting Agency Comment IN Bibi Crews DO LAB BLOOD ORDERABLES Final Re sult [address] [phone] * (ABNORMAL) Ammonia (12/11/2019 11:24 AM CDT) AMMONIA 239(H) 9 - 85 ug/dL [facility] 12/11/2019 11:2 4 AM CDT 12/11/2019 11:28 AM CDT Narrative Resulting Agency Comment IN Bibi Crews DO LAB BLOOD ORDERABLES Final Re sult Performing Organization Address [facility] Co de Phone Number [address] [phone] * (ABNORMAL) Phosphorus (12/11/2019 5:34 AM CDT) Phosphorus 1.5(L) 2.3 - 4.5 mg/dL [facility] Comment: Results reviewed 12/11/2019 5:34 AM CDT 12/11/2019 5:57 AM CDT Narrative Resulting Agency Comment IN Bibi Alexandria Crews LAB BLOOD ORDERABLES Final Re sult Performing Organization Address City/[facility]/ZIP Co de Phone Number [address] [phone] * (ABNORMAL) Magnesium (12/11/2019 5:34 AM CDT) Magnesium 1.4(L) 1.6 - 2.6 mg/dL [facility] Comment: Magnesium sulfate therapy: ??3.0-9.1 mg/dL 12/11/2019 5:34 AM CDT 12/11/2019 5:57 AM CDT Narrative Resulting Agency Comment IN us Bibi Crews DO LAB BLOOD ORDERABLES Final Re sult [facility] [address] [place] [address], [facility] [phone] * (ABNORMAL) Comprehensive metabolic panel (12/11/2019 5:34 AM CDT) Sodium 131(L) 135 - 145 mmol/L [facility] Potassium 3.7 3.3 - 5.1 mmol/L [facility] Chloride 97 96 - 108 mmol/L [facility] Carbon Dioxide 24 22 - 32 mmol/L [facility] Anion Gap 10 7 - 16 [facility] Glucose 137(H) 70 - 100 mg/dL [facility] BUN 7(L) 8 - 25 mg/dL [facility] Creatinine 0.6 0.5 - 1.3 mg/dL [facility] Comment: Results reviewed The specimen is icteric. ??A high bilirubin level is known to cause a false decrease in measured creatinine. NOTE: Estimated GFR (Cockroft-Gault) will NOT be calculated unless patient Height and Weight were entered. Also, Kidney Disease Stage (GFR) and Estimated GFR (Cockroft-Gault) will NOT be calculated if Creatinine result is <0.2. Kidney Disease Stage >90 mL/MIN [facility] Comment: NOTE; ??The GFR is an [...] on dialysis Est GFR (Cockcroft-G) 169 ml/MIN [facility] Comment: Estimated GFR(Cockroft-Gault)is used to calculate patient medication dosage Calcium 8.2(L) 8.6 - 10.3 mg/dL [facility] Total Protein 6.8 6.4 - 8.3 g/dL [facility] Albumin 2.2(L) 3.5 - 5.0 g/dL [facility] Globulin 4.6(H) 2.3 - 3.5 gm/dL [facility] Albumin/Globulin Ratio 0.5(L) 1.1 - 1.8 [facility] Total Bilirubin 5.0(H) 0.0 - 1.2 mg/dL [facility] AST 137(H) 0 - 40 U/L [facility] ALT 24 0 - 41 U/L [facility] Alkaline Phosphatase 126 40 - 129 U/L [facility] 12/11/2019 5:34 AM CDT 12/11/2019 5:57 AM CDT Narrative Resulting Agency Comment IN us Bibi Crews DO LAB BLOOD ORDERABLES Final Re sult [facility] [address] [place] [id number] [place] [address] * (ABNORMAL) CBC with auto differential (12/11/2019 5:34 AM CDT) WBC 3.2(L) 3.8 - 9.9 X10 3/ul [facility] Comment: Results reviewed RBC 3.07(L) 4.30 - 5.80 x10 6/ul [facility] Hemoglobin 9.1(L) 13.0 - 17.5 g/dL [facility] Hct 28.3(L) 38.9 - 50.3 % [facility] MCV 92.2 81.3 - 96.4 fl [facility] MCH 29.6 27.1 - 33.3 pg [facility] MCHC 32.2(L) 32.3 - 35.7 g/dl [facility] RDW 18.8(H) 11.1 - 14.9 % [facility] Plt Count 43(L) 150 - 400 x10 3/ul [facility] MPV 9.6 9.1 - 12.3 fl [facility] Neut % 63.9 % [facility] Immature Gran % 0.3 % [facility] Lymph % 21.2 % [facility] [place] % 12.1 % [facility] Eos % 1.6 % [facility] AUTO BASO % 0.9 % [facility] NEUTROPHIL ABS # 2.1 1.7 - 6.5 x10 3/ul [facility] Immature Gran # 0.0 0.0 - 0.1 x10 3/ul [facility] Absolute Lymphs (auto) 0.7(L) 0.8 - 3.3 x10 3/ul [facility] Absolute Monos (auto) 0.4 0.2 - 0.8 x10 3/ul [facility] Absolute Eos (auto) 0.1 0.0 - 0.5 x10 3/ul [facility] BASOPHIL ABS # 0.0 0.0 - 0.1 x10 3/ul [facility] Nucleat RBC Rel Count 0.0 #/100WBC [facility] NRBC abs 0.00 0.00 - 0.01 x10 3/ul [facility] Absolute Neutrophils 2,100 200 - 8,000 /ul [facility] 12/11/2019 5:34 AM CDT 12/11/2019 5:57 AM CDT Narrative Resulting Agency Comment IN Bibi Crews DO LAB BLOOD ORDERABLES Final Re sult Performing Organization Address [facility]/ZIP Co de Phone Number [address] [phone] * Anaerobic culture Fluid Ascites (12/10/2019 1:10 PM CDT) CULTURE ANAEROBIC NO ANAEROBIC GROWTH DAY 5 [facility] Fluid (Ascites) 12/10/2019 1 :10 PM CDT 12/10/2019 1:14 PM CDT [facility] - 12/15/2019 9:15 AM CDT Container ?? Not specified Specimen Type Peritoneal fluid: ??1200CC CLOUDY ORGANGE/RED Resulting Agency Comment Container ? Not specified ??Specimen Type Peritoneal fluid: ??1200CC CLOUDY ORGANGE/RED ? Bibi Crews DO LAB MICROBIOLOGY - GENERAL OR DERABLES Final Result [address] [phone] * Body Fluid Culture (12/10/2019 1:10 PM CDT) CULTURE BODY FLUID NO GROWTH AFTER 3 DAYS [facility] Fluid (Ascites) 12/10/2019 1 :10 PM CDT 12/10/2019 1:14 PM CDT Narrative [facility] - 12/15/2019 9:15 AM CDT Container ?? Not specified Specimen Type Peritoneal fluid: ??1200CC CLOUDY ORGANGE/RED Resulting Agency Comment Container ? Not specified ??Specimen Type Peritoneal fluid: ??1200CC CLOUDY ORGANGE/RED ? Bibi Crews DO LAB BLOOD ORDERABLES Final Re sult Performing Organization Address [facility]/[place] Co de Phone Number [address] [phone] * Gram stain Fluid Ascites (12/10/2019 1:10 PM CDT) GRAM STAIN MANY RBC MODERATE WBC NO ORGANISMS SEEN [facility] Fluid (Ascites) 12/10/2019 1 :10 PM CDT 12/10/2019 1:14 PM CDT [facility] - 12/15/2019 9:15 AM CDT Container ?? Not specified Specimen Type Peritoneal fluid: ??1200CC CLOUDY ORGANGE/RED Resulting Agency Comment Container ? Not specified ??Specimen Type Peritoneal fluid: ??1200CC CLOUDY ORGANGE/RED ? Bibi Crews DO LAB MICROBIOLOGY - GENERAL OR DERABLES Final Result Performing Organization Address [facility] de Phone Number [address] [phone] * Cytology (12/10/2019 1:10 PM CDT) CYTOLOGY, NON COMPOUNDER HELPER vxw [facility] Comment: Specimen received and submitted to Histology. Please refer to Pathology report for results. 12/10/2019 1:10 PM CDT 12/10/2019 1:14 PM CDT [facility] - 12/11/2019 12:00 AM CDT Specimen Type Peritoneal fluid: ??1200CC CLOUDY ORGANGE/RED alcoholic, HCV ascites [id number] Resulting Agency Comment IN Bibi Crews DO LAB CYTOLOGY ORDERABLES Final Result Performing Organization Address [facility]/[place] Co de Phone Number [address] [phone] * Cell Count, Body Fluid (12/10/2019 1:10 PM CDT) Pathologist [facility] Fluid Source PERITONEAL FLUID [facility] Fluid Type PERITONEAL [facility] Fluid Color ORANGE [facility] Fluid Appearance CLOUDY [facility] Fluid Volume 1,200.00 mls [facility] Fluid RBC 6,000 /ul [facility] Fluid WBC 46 /ul [facility] Fluid Macrophages 183 /ul [facility] Fld Mesothelial Cells 74 /ul [facility] Fluid Neutrophils % 12 % [facility] Fluid Lymphocytes % 37 % [facility] Fluid Monocytes % 51 % [facility] 12/10/2019 1:10 PM CDT 12/10/2019 1:14 PM CDT Narrative [facility] - 12/10/2019 2:25 PM CDT Specimen Type Peritoneal fluid: ??1200CC CLOUDY ORGANGE/RED PERITONEAL Resulting Agency Comment IN Bibi Crews DO LAB BODY FLUIDS AND STOOLS OR DERABLES Final Result Performing Organization Address [facility]/[place] Co de Phone Number [address] [phone] * Hepatitis C RNA, Quantitative, NAAT (12/10/2019 10:59 AM CDT) Pathologist [facility] HCV RNA IU/mL Not Detected IU/mL [email or web address] HCV RNA log IU/mL Not Detected [...] and Cellular Tissue-Based Products (HCT/P). Performed by [employer], [address] [place] [address] [email or web address], William Corado MD, Lab. Director 12/10/2019 10:5 9 AM CDT 12/10/2019 11:44 AM CDT Narrative Resulting Agency Comment IN Meir Irving MD LAB BLOOD ORDERABLES Final Result Performing Organization Address [facility]/[place] Co id Phone Number [facility] [address] [place] [address], [facility] [phone] * ECG 12 lead (12/10/2019 8:58 AM CDT) Ventricular Rate EKG/Min 95 BPM ER RADIOLOGY Atrial Rate 95 BPM ER RADIOLOGY AR-Interval (MSEC) 156 ms [facility] QRS-Interval (MSEC) 88 ms ER RADIOLOG[facility] QT-Interval (MSEC) 398 ms ER RADIOLOGY QTc 500 ms ER RADIOLOGY P [place] 60 degrees ER RADIOLOGY R [place] 27 degrees ER RADIOLOGY T [place] 9 degrees ER RADIOLOGY Diagnosis Sinus rhythm [...] WBC 5.1 3.8 - 9.9 X10 3/ul [facility] RBC 3.22(L) 4.30 - 5.80 x10 6/ul [facility] Hemoglobin 9.6(L) 13.0 - 17.5 g/dL [facility] Hct 29.1(L) 38.9 - 50.3 % [facility] MCV 90.4 81.3 - 96.4 fl [facility] MCH 29.8 27.1 - 33.3 pg [facility] MCHC 33.0 32.3 - 35.7 g/dl [facility] RDW 20.0(H) 11.1 - 14.9 % [facility] Plt Count 57(L) 150 - 400 x10 3/ul [facility] MPV 10.6 9.1 - 12.3 fl [facility] Neut % 66.8 % [facility] Immature Gran % 0.4 % [facility] Lymph % 15.5 % [facility] [place] % 13.9 % [facility] Eos % 1.6 % [facility] AUTO BASO % 1.8 % [facility] NEUTROPHIL ABS # 3.4 1.7 - 6.5 x10 3/ul [facility] Immature Gran # 0.0 0.0 - 0.1 x10 3/ul [facility] Absolute Lymphs (auto) 0.8 0.8 - 3.3 x10 3/ul [facility] Absolute Monos (auto) 0.7 0.2 - 0.8 x10 3/ul [facility] Absolute Eos (auto) 0.1 0.0 - 0.5 x10 3/ul [facility] BASOPHIL ABS # 0.1 0.0 - 0.1 x10 3/ul [facility] Nucleat RBC Rel Count 0.0 #/100WBC [facility] NRBC abs 0.00 0.00 - 0.01 x10 3/ul [facility] Absolute Neutrophils 3,400 200 - 8,000 /ul [facility] 12/10/2019 7:56 AM CDT 12/10/2019 8:22 AM CDT Narrative [facility] - 12/10/2019 8:28 AM CDT redraw;specimen clotted/fibrin strands present Resulting Agency Comment IN us Meir Irving MD LAB BLOOD ORDERABLES Final Result [facility] [address] [place] [address], [facility] [phone] * (ABNORMAL) Hepatitis panel, acute (12/10/2019 5:41 AM CDT) HepBsAg NONREACT NONREACTIVE [facility] Comment: Siemens CentaurXP using CHRISTOPHER (chemiluminescent immunoassay) technology. NONREACTIVE: IgM antibodies to Hepatitis B Surface antigen not detected. REACTIVE: IgM antibodies to Hepatitis B Surface antigen detected. Reactive results will be confirmed by neutralization testing. HBsAb qn 10.95 mIU/mL [facility] Comment: Siemens CentaurXP using CHRISTOPHER (chemiluminescent immunoassay) technology. 9.99 IU/L or less.....NONREACTIVE: IgM antibodies to Hepatitis B Surface antibody are not detected. 10.00 IU/L or greater..REACTIVE: IgM antibodies to Hepatitis B Surface antibody are detected. Hep B core IgM NONREACT NONREACTIVE [facility] Comment: Siemens CentaurXP using CHRISTOPHER (chemiluminescent immunoassay) technology. NONREACTIVE: IgM antibodies to Hepatitis B Core antigen not detected. EQUIVOCAL: IgM antibodies to Hepatitis B Core antigen may or may not be present. Obtain a ??new specimen and retest. REACTIVE: IgM antibodies to Hepatitis B Core antigen detected. Hep A IgM NONREACT NONREACTIVE [facility] Comment: Siemens CentaurXP using CHRISTOPHER (chemiluminescent immunoassay) technology. NONREACTIVE: IgM antibodies to Hepatitis A not detected. This does not exclude possibility of exposure to Hepatitis A or early acute infection. EQUIVOCAL:IgM antibodies to Hepatitis A may or may not be present. Suggest recollection and retest. REACTIVE: Antibodies to Hepatitis A detected. Hep C Ab REACTIVE(A) NONREACTIVE [facility] Comment: Sample to be confirmed by HCV quantitative NAAT. Siemens T[employer]geuk ReseachaurXP using CHRISTOPHER (chemiluminescent immunoassay) technology. NONREACTIVE: Antibodies [...] LAB MICROBIOLOGY - NERAL ORDERABLES Final Result [address] [phone] * Phosphorus (12/10/2019 5:41 AM CDT) Phosphorus 3.3 2.3 - 4.5 mg/dL [facility] 12/10/2019 5:41 AM CDT 12/10/2019 6:10 AM CDT Narrative Resulting Agency Comment IN Meir Irving MD LAB BLOOD [place] [address], [facility] [phone] * Magnesium (12/10/2019 5:41 AM CDT) Magnesium 1.6 1.6 - 2.6 mg/dL [facility] Comment: Magnesium sulfate therapy: ??3.0-9.1 mg/dL 12/10/2019 5:41 AM CDT 12/10/2019 6:10 AM CDT Narrative Resulting Agency Comment IN us Meir Irving MD LAB BLOOD ORDERABLES Final Result [facility] [address] [place] [address], [facility] [phone] * (ABNORMAL) Comprehensive metabolic panel (12/10/2019 5:41 AM CDT) Sodium 136 135 - 145 mmol/L [facility] Potassium 3.9 3.3 - 5.1 mmol/L [facility] Chloride 101 96 - 108 mmol/L [facility] Carbon Dioxide 22 22 - 32 mmol/L [facility] Anion Gap 13 7 - 16 [facility] Glucose 72 70 - 100 mg/dL [facility] BUN 6(L) 8 - 25 mg/dL [facility] Creatinine 0.3(L) 0.5 - 1.3 mg/dL [facility] Comment: The specimen is icteric. ??A high bilirubin level is known to cause a false decrease in measured creatinine. NOTE: Estimated GFR (Cockroft-Gault) will NOT be calculated unless patient Height and Weight were entered. Also, Kidney Disease Stage (GFR) and Estimated GFR (Cockroft-Gault) will NOT be calculated if Creatinine result is <0.2. Kidney Disease Stage >90 mL/MIN [facility] Comment: NOTE; ??The GFR is an [...] on dialysis Est GFR (Cockcroft-G) 337 ml/MIN [facility] Comment: Estimated GFR(Cockroft-Gault)is used to calculate patient medication dosage Calcium 7.6(L) 8.6 - 10.3 mg/dL [facility] Total Protein 7.2 6.4 - 8.3 g/dL [facility] Albumin 2.5(L) 3.5 - 5.0 g/dL [facility] Globulin 4.7(H) 2.3 - 3.5 gm/dL [facility] Albumin/Globulin Ratio 0.5(L) 1.1 - 1.8 [facility] Total Bilirubin 5.2(H) 0.0 - 1.2 mg/dL [facility] AST 160(H) 0 - 40 U/L [facility] Comment: SLIGHTLY TO MODERATELY HEMOLYZED: Hemolysis interferes with the above test. ALT 26 0 - 41 U/L [facility] Alkaline Phosphatase 136(H) 40 - 129 U/L [facility] 12/10/2019 5:41 AM CDT 12/10/2019 6:10 AM CDT Narrative Resulting Agency Comment IN us Meir Irving MD LAB BLOOD ORDERABLES Final Result [facility] [address] [place] [address], [facility] [phone] * Drugs of Abuse Screen, Urine without Confirmation (12/10/2019 1:50 AM CDT) Amphetamines NOT DETECTED [facility] Comment: This assay uses 500 ng/mL as a cutoff for a positive result. Barbiturates NOT DETECTED [facility] Comment: This assay uses 200 ng/mL as a cutoff for a positive result. Urine Fentanyl NOT DETECTED [facility] Comment: This assay uses 1 ng/mL as a cutoff for a positive result. Benzodiazepines NOT DETECTED [facility] Comment: This assay uses 100 ng/mL as a cutoff for a positive result. Cannabinoids DETECTED [facility] Comment: This assay uses 50 ng/mL as a cutoff for a positive result. Cocaine NOT DETECTED [facility] Comment: This assay uses 150 ng/mL as a cutoff for a positive result. Opiates DETECTED [facility] Comment: This assay uses 300 ng/mL as a cutoff for a positive result. Urine methadone NOT DETECTED [facility] Comment: This assay uses 300 ng/mL as a cutoff for a positive result. Urine phencyclidine plus NOT DETECTED [facility] Comment: This assay uses 25 ng/mL as a cutoff for a positive result. Oxycodone NOT DETECTED [facility] Comment: This assay uses 100 ng/mL as a cutoff for a positive result. Urine Creatinine/GERMAN 126.0 mg/dL [facility] Comment: If Creatinine is < 40 mg/dL, recollection is suggested. 12/10/2019 1:50 AM CDT 12/10/2019 2:28 AM CDT Narrative [facility] - 12/10/2019 2:58 AM CDT Collected By [facility] Agency Comment IN us Meir Irving MD LAB URINE ORDERABLES Final Result [facility] [address] [place] [address], [facility] [phone] * (ABNORMAL) URINALYSIS, COMPLETE W/REFLEX TO CULTURE (12/10/2019 1:50 AM CDT) Pathologist [facility] Ur Collection Type CLEAN CATCH [facility] Ur Culture Indicated? C S NOT INDICATED [facility] Urine Color AMANDA YELLOW [facility] Urine Clarity CLEAR [facility] Urine Glucose (UA) NORMAL NORMAL mg/dL [facility] Urine Bilirubin 2.0(A) NEGATIVE mg/dl [facility] Urine Ictotest POSITIVE(A) NEGATIVE [facility] Comment: Urine Bilirubin result confirmed with Ictotest. Urine Ketones 5(A) NEGATIVE mg/dL [facility] Ur Specific [place] >1.060(H) 1.005 - 1.025 [facility] Urine Blood 0.2(A) NEGATIVE mg/dl [facility] Urine pH 6.0 5.0 - 8.0 [facility] Urine Protein NEGATIVE NEGATIVE mg/dL [facility] Urine Urobilinogen 4(A) NORMAL mg/dL [facility] Urine Nitrite NEGATIVE NEGATIVE [facility] Ur Leukocyte Esterase NEGATIVE NEGATIVE Jimmy/ul [facility] Ur Microscopic Review Indicated or Ordered [facility] Urine RBC 12 0 - 2 /HPF [facility] Urine WBC 3 0 - 2 /HPF [facility] Urine Mucus RARE /LPF [facility] 12/10/2019 1:50 AM CDT 12/10/2019 2:28 AM CDT Narrative [facility] - 12/10/2019 2:52 AM CDT Indication(s) for ordering ?? Pain-pelv/flank/suprapubc kh Clean catch Resulting Agency Comment ER us Freedom GARCIA LAB URINE ORDERABLES Final Result [facility] [address] [place] [address], [facility] [phone] * (ABNORMAL) aPTT (12/10/2019 1:26 AM CDT) APTT 45(H) 27 - 36 SECONDS [facility] 12/10/2019 1:26 AM CDT 12/10/2019 1:30 AM CDT Narrative [facility] - 12/10/2019 1:44 AM CDT Could not be done as an add on Resulting Agency Comment ER Kenyon Mei MD LAB BLOOD ORDERABLES Final Result Performing Organization Address City/[facility]/ZIP Co de Phone Number [address] [phone] * (ABNORMAL) Protime-INR (12/10/2019 1:26 AM CDT) PT 22.3(H) 12.2 - 14.8 SECONDS [facility] INR 1.88 [facility] Comment: Recommended Therapeutic range for Oral Anticoagulant Therapy No anti-coagulation therapy ? Normal Range: ?0.8-1.4 Anti-coagulation therapy ? Low intensity therapy ?2.0-3.0 ? High intensity therapy ?? 2.5-3.5 Critical Value ? Greater than or equal to 5.0 Patients should be monitored for serious bleeding. 12/10/2019 1:26 AM CDT 12/10/2019 1:30 AM CDT Narrative [facility] - 12/10/2019 1:44 AM CDT Could not be done as an add on Resulting Agency Comment ER Kenyon Mei MD LAB BLOOD ORDERABLES Final Result Performing Organization Address City/[facility]/ZIP Co de Phone Number [address] [phone] * US Guided Paracentesis (12/10/2019 12:00 AM CDT) Anatomical Region Laterality Modality Abdomen N/A Ultrasound 12/10/2019 1:17 PM CDT Narrative 12/10/2019 1:18 PM CDT Patient Name: JARED BRUMFIELD JR ?Ordering Dr: Bibi Crews DO ?? D.O.B: 1970 ? Exam Date: 12/10/19 ?? 0000 ?? Age: 49 ?Sex: Male ? MR#: [id number] ?? Loc: ??C254-01 ? RADIOLOGY REPORT ?? Order #[id number] ?? Ultrasound ? US Guided Paracentesis in [...] deeper ?? tissues. ??Under ultrasound guidance, a 5-Prydeinig 7 cm One Step Centesis ?? catheter [...] 1:18 PM ?? T: ? Report ID: [id number] ?? Reading Location: ??[id number] ? REPORT ELECTRONICALLY SIGNED IN OTHER VENDOR SYSTEM ?? Resulting Agency Comment I Procedure Note Nilson Son MD - 12/10/2019 Patient Name: JARED BRUMFIELD Dr: Bibi Crews DO, D.O.B: 1970 Exam Date: 12/10/19 0000 Age: 49 Sex: Male MR#: [id number] Loc: C254-01 RADIOLOGY REPORT Order #[id number] Ultrasound US Guided Paracentesis in US Signed [...] and deeper tissues. Under ultrasound guidance, a 5-Prydeinig 7 cm One Step Centesis catheter was [...] signed by Nilson SENA T: Report ID: [id number] Reading Location: [place] [address] REPORT ELECTRONICALLY SIGNED IN OTHER VENDOR SYSTEM Bibi Crews DO [facility] US PROCEDURES Final Resul t * Sepsis Lactate (12/09/2019 10:43 PM CDT) Sepsis lactate 1.9 mmol/L [facility] Comment: Lactate Reference Range: 0.5 - 2.2 mmol/L 12/09/2019 10:4 3 PM CDT 12/09/2019 10:48 PM CDT Narrative Resulting Agency Comment ER Candace GARCIA LAB BLOOD ORDERABLE S Final Result Performing Organization Address City/[facility]/[place] Co de Phone Number [address] [phone] * Ethanol (12/09/2019 8:39 PM CDT) Pathologist [facility] Ethyl Alcohol 210 mg/dL [facility] Comment: % = mg/dL x .001 12/09/2019 8:39 PM CDT 12/09/2019 8:41 PM CDT Narrative Resulting Agency Comment ER Kenyon Mei MD LAB BLOOD ORDERABLES Final Result Performing Organization Address [facility] de Phone Number [address] [phone] * Procalcitonin (12/09/2019 8:39 PM CDT) Pathologist [facility] Procalcitonin 0.10 0.0 - 0.24 ng/mL [facility] Comment: Guidelines for use with Community [...] Mei MD LAB BLOOD ORDERABLES Final Result [facility] [address] [place] [address], [facility] [phone] * (ABNORMAL) Lipase (12/09/2019 8:39 PM CDT) Lipase 100(H) 13 - 60 U/L [facility] 12/09/2019 8:39 PM CDT 12/09/2019 8:41 PM CDT Narrative Resulting Agency Comment ER Kenyon Mei MD LAB BLOOD ORDERABLES Final Result [facility] [address] [place] [address], [facility] [phone] * TNI with LIPID PANEL (12/09/2019 8:39 PM CDT) [facility] Troponin I <0.300 0.000 - 0.300 ng/mL [facility] Comment: Reference using HARJIT Chemiluminescence ? Negative: Repeat in 4-6 hours as indicated. Triglycerides 98 0 - 149 mg/dL [facility] Comment: National Lipid Association/NCEP Guidelines: ?? Normal ?< 150 mg/dL ?? Borderline high ?? 150-199 mg/dL ?? High ?200-499 mg/dL ?? Very High ? >=500 mg/dL Cholesterol 105 0 - 199 mg/dL [facility] Comment: National Lipid Association/NCEP Guidelines: Desirable ? < 200 mg/dL Borderline high: ??200-239 mg/dL High Risk: ?>=240 mg/dL HDL Cholesterol 19 mg/dL [facility] Comment: Reference Ranges: ? Males: >=40 mg/dL ? Females: >=50 mg/dL LDL Cholesterol, Calc 66 0 - 129 mg/dL [facility] Comment: National Lipid Association/NCEP Guidelines: ??Optimal ? < 100 mg/dL ??Near Optimal ?100-129 mg/dL ??Borderline high 130-159 mg/dL ??High ?>=160 mg/dL Cholesterol/HDL Ratio 5.5 [facility] Comment: Optimal ??< 3.5:1 High ? > 5:1 12/09/2019 8:39 PM CDT 12/09/2019 8:41 PM CDT Narrative Resulting Agency Comment ER us Kenyon Mei MD LAB BLOOD ORDERABLES Final Result [facility] [address] [place] [address], [facility] [phone] * (ABNORMAL) Comprehensive metabolic panel (12/09/2019 8:39 PM CDT) Sodium 133(L) 135 - 145 mmol/L [facility] Potassium 3.7 3.3 - 5.1 mmol/L [facility] Chloride 99 96 - 108 mmol/L [facility] Carbon Dioxide 24 22 - 32 mmol/L [facility] Anion Gap 10 7 - 16 [facility] Glucose 111(H) 70 - 100 mg/dL [facility] BUN 5(L) 8 - 25 mg/dL [facility] Creatinine 0.4(L) 0.5 - 1.3 mg/dL [facility] Comment: The specimen is icteric. A high bilirubin level is known to cause a false decrease in measured creatinine. NOTE: Estimated GFR (Cockroft-Gault) will NOT be calculated unless patient Height and Weight were entered. Also, Kidney Disease Stage (GFR) and Estimated GFR (Cockroft-Gault) will NOT be calculated if Creatinine result is <0.2. Kidney Disease Stage >90 mL/MIN [facility] Comment: NOTE; ??The GFR is an [...] on dialysis Est GFR (Cockcroft-G) 253 ml/MIN [facility] Comment: Estimated GFR(Cockroft-Gault)is used to calculate patient medication dosage Calcium 7.7(L) 8.6 - 10.3 mg/dL [facility] Total Protein 7.5 6.4 - 8.3 g/dL [facility] Albumin 2.5(L) 3.5 - 5.0 g/dL [facility] Globulin 5.0(H) 2.3 - 3.5 gm/dL [facility] Albumin/Globulin Ratio 0.5(L) 1.1 - 1.8 [facility] Total Bilirubin 5.4(H) 0.0 - 1.2 mg/dL [facility] AST 177(H) 0 - 40 U/L [facility] ALT 29 0 - 41 U/L [facility] Alkaline Phosphatase 144(H) 40 - 129 U/L [facility] 12/09/2019 8:39 PM CDT 12/09/2019 8:41 PM CDT Narrative Resulting Agency Comment ER Kenyon Mei MD LAB BLOOD ORDERABLES Final Result [facility] [address] [place] [address], [facility] [phone] * (ABNORMAL) CBC with auto differential (12/09/2019 8:39 PM CDT) WBC 4.3 3.8 - 9.9 X10 3/ul [facility] RBC 3.73(L) 4.30 - 5.80 x10 6/ul [facility] Hemoglobin 11.0(L) 13.0 - 17.5 g/dL [facility] Hct 32.9(L) 38.9 - 50.3 % [facility] MCV 88.2 81.3 - 96.4 fl [facility] MCH 29.5 27.1 - 33.3 pg [facility] MCHC 33.4 32.3 - 35.7 g/dl [facility] RDW 19.9(H) 11.1 - 14.9 % [facility] Plt Count 68(L) 150 - 400 x10 3/ul [facility] MPV 9.6 9.1 - 12.3 fl [facility] Neut % 61.8 % [facility] Immature Gran % 0.2 % [facility] Lymph % 18.8 % [facility] [place] % 14.8 % [facility] Eos % 2.8 % [facility] AUTO BASO % 1.6 % [facility] NEUTROPHIL ABS # 2.7 1.7 - 6.5 x10 3/ul [facility] Immature Gran # 0.0 0.0 - 0.1 x10 3/ul [facility] Absolute Lymphs (auto) 0.8 0.8 - 3.3 x10 3/ul [facility] Absolute Monos (auto) 0.6 0.2 - 0.8 x10 3/ul [facility] Absolute Eos (auto) 0.1 0.0 - 0.5 x10 3/ul [facility] BASOPHIL ABS # 0.1 0.0 - 0.1 x10 3/ul [facility] Nucleat RBC Rel Count 0.0 #/100WBC [facility] NRBC abs 0.00 0.00 - 0.01 x10 3/ul [facility] Absolute Neutrophils 2,700 200 - 8,000 /ul [facility] 12/09/2019 8:39 PM CDT 12/09/2019 8:41 PM CDT Narrative Resulting Agency Comment ER us Freedom GARCIA LAB BLOOD ORDERABLES Final Result [facility] [address] [place] [address], [facility] [phone] * CT Abdomen Pelvis W Contrast (12/09/2019 12:00 AM CDT) Anatomical Region Laterality Modality Body N/A Computed Tomogra phy 12/09/2019 10:1 1 PM CDT Narrative 12/09/2019 10:35 PM CDT Patient Name: JARED BRUMFIELD JR ?Ordering Dr: Kenyon Mei MD ?? D.O.B: 1970 ? Exam Date: 12/09/19 ?? 0000 ?? Age: 49 ?Sex: Male ? MR#: [id number] ?? Loc: ? RADIOLOGY REPORT ?? Order #[id number] ?? CT Scan ? CT Abd/Pelvis W [...] 10:35 PM ?? T: ? Report ID: [id number] ?? Reading Location: ??[id number] ? REPORT ELECTRONICALLY SIGNED IN OTHER VENDOR SYSTEM ?? Resulting Agency Comment E Procedure Note Cynthia Howe MD - 12/09/2019 Patient Name: JARED BRUMFIELD Dr: Kenyon Mei MD D.O.B: 1970 Exam Date: 12/09/19 0000 Age: 49 Sex: Male MR#: [id number] Loc: RADIOLOGY REPORT Order #[id number] CT Scan CT Abd/Pelvis W IV Contrast [...] signed by Cynthia HUERTA T: Report ID: [id number] Reading Location: [place] [address] REPORT ELECTRONICALLY SIGNED IN OTHER VENDOR SYSTEM Kenyon Mei MD IMG CT PROCEDURES Fin al Result documented in this encounter Visit Diagnoses Not on filedocumented in this encounter Additional Health Concerns Infection Onset Date Last Indicated Resolved Time 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
--- OUTSIDE RECORDS SUMMARY | 2024-06-27 10:34 | XMS_ITS | Encounter Summary ---
Author Organization [facility] Healthcare Address [address] [place] [address] Care Team Providers Care Freight Hustler Name Role Phone Jayne Bowen MD Primary Care Provider + Encounter Details Date Type Department Care Team (Late st Contact Info) Description 12/26/2019 11:30 PM CDT - 12/27/2019 4:25 AM CDT Hospital Encounter [address] [address] Unknown, Kristie Royal MD [facility] [place] [address] Discharge Disposition: Discharge to home or self [...] CDT) APTT 45(H) 27 - [address] [facility] 12/27/2019 12:0 3 AM CDT 12/27/2019 1:12 AM CDT Narrative Resulting Agency Comment ER us Kristie Villegas MD LAB BLOOD ORDERABLES Jasmin l Result Performing Organization Address [facility] de Phone Number [address] [phone] * (ABNORMAL) Protime-INR (12/27/2019 12:03 AM CDT) PT 20.9(H) 12.2 - 14.[address] [facility] INR 1.[address] [facility] Comment: Recommended Therapeutic range for Oral Anticoagulant [...] ORDERABLES Jasmin l Result Performing Organization Address [facility] Co de Phone Number [address] [phone] * TNI with LIPID PANEL (12/27/2019 12:03 AM CDT) Troponin I <0.300 0.000 - 0.300 ng/mL [facility] Comment: Reference using HARJIT Chemiluminescence ? Negative: Repeat in 4-6 hours as indicated. Triglycerides 74 0 - 149 mg/dL [facility] Comment: National Lipid Association/NCEP Guidelines: ?? Normal ?< 150 mg/dL ?? Borderline high ?? 150-199 mg/dL ?? High ?200-499 mg/dL ?? Very High ? >=500 mg/dL Cholesterol 68 0 - 199 mg/dL [facility] Comment: National Lipid Association/NCEP Guidelines: Desirable ? < 200 mg/dL Borderline high: ??200-239 mg/dL High Risk: ?>=240 mg/dL HDL Cholesterol 14 mg/dL [facility] Comment: Reference Ranges: ? Males: >=40 mg/dL ? Females: >=50 mg/dL LDL Cholesterol, Calc 39 0 - 129 mg/dL [facility] Comment: National Lipid Association/NCEP Guidelines: ??Optimal ? < 100 mg/dL ??Near Optimal ?100-129 mg/dL ??Borderline high 130-159 mg/dL ??High ?>=160 mg/dL Cholesterol/HDL Ratio 4.[address] [facility] Comment: Optimal ??< 3.5:1 High ? > 5:1 12/27/2019 12:0 3 AM CDT 12/27/2019 12:07 AM CDT Narrative Resulting Agency Comment ER us Kristie Villegas MD LAB BLOOD ORDERABLES Jasmin daniel Result [facility] [address] [place] [address], [facility] [phone] * (ABNORMAL) Comprehensive metabolic panel (12/27/2019 12:03 AM CDT) Sodium 130(L) 135 - 145 mmol/L [facility] Potassium 3.7 3.3 - 5.1 mmol/L [facility] Chloride 99 96 - 108 mmol/L [facility] Carbon Dioxide 22 22 - 32 mmol/L [facility] Anion Gap 9 7 - [address] [facility] Glucose 111(H) 70 - 100 mg/dL [facility] BUN 6(L) 8 - 25 mg/dL [facility] Creatinine 0.6 0.5 - 1.3 mg/dL [facility] Comment: The specimen is icteric. A high bilirubin level is known to cause a false decrease in measured creatinine. NOTE: Estimated GFR (Cockroft-Gault) will NOT be calculated unless patient Height and Weight were entered. Also, Kidney Disease Stage (GFR) and Estimated GFR (Cockroft-Gault) will NOT be calculated if Creatinine result is <0.2. Kidney Disease Stage >90 mL/MIN [facility] Comment: NOTE; ??The GFR is an estimated [...] on dialysis Est GFR (Cockcroft-G) 143 ml/MIN [facility] Comment: Estimated GFR(Cockroft-Gault)is used to calculate patient medication dosage Calcium 7.7(L) 8.6 - 10.3 mg/dL [facility] Total Protein 7.4 6.4 - 8.3 g/dL [facility] Albumin 2.0(L) 3.5 - 5.0 g/dL [facility] Globulin 5.4(H) 2.3 - 3.5 gm/dL [facility] Albumin/Globulin Ratio 0.4(L) 1.1 - 1.[address] [facility] Total Bilirubin 3.0(H) 0.0 - 1.2 mg/dL [facility] AST 111(H) 0 - 40 U/L [facility] ALT 24 0 - 41 U/L [facility] Alkaline Phosphatase 106 40 - 129 U/L [facility] 12/27/2019 12:0 3 AM CDT 12/27/2019 12:07 AM CDT Narrative Resulting Agency Comment ER us Kristie Villegas MD LAB BLOOD ORDERABLES Jasmin l Result Performing Organization Address City/State/[facility] Co tn Phone Number [facility] [address] [phone] * Sepsis Lactate (12/27/2019 12:03 AM CDT) Sepsis lactate 1.6 mmol/L [facility] Comment: Lactate Reference Range: 0.5 - 2.2 mmol/L 12/27/2019 12:0 3 AM CDT 12/27/2019 12:07 AM CDT Narrative Resulting Agency Comment ER Kristie Villegas MD LAB BLOOD ORDERABLES Jasmin l Result [facility] [address] [place] [address], [facility] [phone] * (ABNORMAL) CBC with auto differential (12/27/2019 12:03 AM CDT) WBC 10.3(H) 3.8 - 9.9 X10 3/ul [facility] Comment: Results reviewed RBC 3.34(L) 4.30 - 5.80 x10 6/ul [facility] Hemoglobin 10.4(L) 13.0 - 17.5 g/dL [facility] Hct 30.4(L) 38.9 - 50.3 % [facility] MCV 91.0 81.3 - 96.[address] [facility] MCH 31.1 27.1 - 33.[address] [facility] MCHC 34.2 32.3 - 35.7 g/dl [facility] RDW 21.1(H) 11.1 - 14.9 % [facility] Plt Count 141(L) 150 - 400 x10 3/ul [facility] MPV 9.7 9.1 - 12.[address] [facility] Neut % 79.0 % [facility] Immature Gran % 0.4 % [facility] Lymph % 9.9 % [facility] Wy[place] % 8.7 % [facility] Eos % 1.1 % [facility] AUTO BASO % 0.9 % [facility] NEUTROPHIL ABS # 8.1(H) 1.7 - 6.5 x10 3/ul [facility] Immature Gran # 0.0 0.0 - 0.1 x10 3/ul [facility] Absolute Lymphs (auto) 1.0 0.8 - 3.3 x10 3/ul [facility] Absolute Monos (auto) 0.9(H) 0.2 - 0.8 x10 3/ul [facility] Absolute Eos (auto) 0.1 0.0 - 0.5 x10 3/ul [facility] BASOPHIL ABS # 0.1 0.0 - 0.1 x10 3/ul [facility] Nucleat RBC Rel Count 0.0 #/100WBC [facility] NRBC abs 0.00 0.00 - 0.01 x10 3/ul [facility] Absolute Neutrophils 8,100(H) 200 - 8,000 /ul [facility] 12/27/2019 12:0 3 AM CDT 12/27/2019 12:07 AM CDT Narrative Resulting Agency Comment ER Kristie Villegas MD LAB BLOOD ORDERABLES Jasmin l Result Performing Organization Address [facility] Co de Phone Number [address] [phone] * ECG 12 lead (12/26/2019 11:34 PM CDT) Ventricular Rate EKG/Min 104 BPM ER RADIOLOGY Atrial Rate 104 BPM ER RADIOLOGY UT-Interval (MSEC) 136 ms ER [facility] QRS-Interval (MSEC) 86 ms ER RADIOLOGY QT-Interval (MSEC) 384 ms ER RADIOLOGY QTc 504 ms ER RADIOLOGY P Mangum 23 degrees ER RADIOLOGY R Mangum 22 degrees ER RADIOLOGY T Mangum 32 degrees ER RADIOLOGY Diagnosis Sinus tachycardia Occasional Premature ventricular complexes Otherwise normal ECG When compared with ECG of 10-DEC-2019 08:58, No significant change was found ER RADIOLOGY 12/26/2019 11:3 4 PM CDT 12/27/2019 11:38 AM CDT Narrative Resulting Agency Comment LAURA Kristie Villegas MD ECG ORDERABLES Final Res ult Performing Organization Address [facility] Co de Phone Number ER RADIOLOGY * XR Chest 1 View (12/26/2019 12:00 AM CDT) Anatomical Region Laterality Modality Body, Chest N/A Radiographic Lynette ging 12/27/2019 12:3 6 AM CDT Narrative 12/27/2019 12:37 AM CDT Patient Name: CHESTER BRUMFIELD JR ?Ordering Dr: Kristie Villegas MD ?? D.O.B: 1970 ? Exam Date: 12/26/19 ?? 0000 ?? Age: 49 ?Sex: Male ? MR#: [id number] ?? Loc: ? RADIOLOGY REPORT ?? Order #[id number] ?? Radiology ? Chest 1 View Portable [...] 12:37 AM ?? T: ? Report ID: [id number] ?? Reading Location: ??[id number] ? REPORT ELECTRONICALLY SIGNED IN OTHER VENDOR SYSTEM ?? Resulting Agency Comment E Procedure Note Lamar Becker MD - 12/27/2019 Patient Name: CHESTER BRUMFIELD JROrdering Dr: Kristie Villegas MD DDenisO.B: 1970 Exam Date: 12/26/19 0000 Age: 49 Sex: Male MR#: [id number] Loc: RADIOLOGY REPORT Order #[id number] Radiology Chest 1 View Portable Signed EXAM [...] signed by Lamar DIXON T: Report ID: [id number] Reading Location: [id number] REPORT ELECTRONICALLY SIGNED IN OTHER VENDOR SYSTEM us Kristie Villegas MD IMG XR PROCEDURES Final R esult documented in this encounter Visit Diagnoses Not on filedocumented in this encounter Additional Health Concerns Infection Onset Date Last Indicated Resolved Time 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
--- OUTSIDE RECORDS SUMMARY | 2024-06-27 10:34 | XMS_ITS | Encounter Summary ---
Author Organization [facility] Healthcare Address [address] [place] [address] Care Team Providers Care Educational Administrator Name Role Phone Jayne Bowen MD Primary Care Provider + Encounter Details Date Type Department Care Team (Late st Contact Info) Description 01/02/2020 8:00 AM CDT Lab [address] [address] Social History Tobacco Use Types Packs/Day Years [...] AM CDT) COVID-19 RNA Not Detected [facility] Comment: Interpretive Data Testing performed at [facility] Molecular Infectious Disease Laboratory. The 2018-Novel Coronavirus [...] AM CDT 01/02/2020 8:57 AM CDT us [facility] MICROBIOLOGY - GENERAL ORDER WILLIAN Final Result 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
--- OUTSIDE RECORDS SUMMARY | 2024-06-27 10:35 | XMS_ITS | Encounter Summary ---
Author Organization [facility] Address [address] [facility] [address] [place] [address] Care Team Providers Care Core Checker Name Role Phone Jayne Bowen MD Primary Care Provider + Encounter Details Date Type Department Care Team (Late st Contact Info) Description 12/10/2019 Orders Only [address] [phone] Bibi Crews, [facility] [place] [address] [place] [address] Social History Tobacco Use Types [...] PM CDT Narrative 12/11/2019 9:06 AM CDT [facility] Department of Pathology [address] [place], [place] [address] ?? Final Report Patient Name: ??CHESTER BRUMFIELD JR : ??1970 (Age: 49) Gender: ??M Address: ?? [place], [place] ??[address] Hospital #: ??[id number] Service: ??TELE Location: ??2 Center Patient Type: [...] documented as of this encounter Care Teams Core Checker Relationship Specialty Start Date End Date Jayne Bowen MD [address] [place] [address] PCP - General 08/14/19 01/06/20 documented as of this encounter
--- OUTSIDE RECORDS SUMMARY | 2024-06-27 10:35 | XMS_ITS | Encounter Summary ---
Author Organization [facility] Healthcare Address [address] [place] [address] Care Team Providers Care Appraisal Coordinator Name Role Phone Bianca Chand MD Primary Care Provider Reason for Referral * Consultation (Routine) - Closed Specialty Diagnoses / Procedures Referred By Contac t Referred To Contact Diagnoses Alcoholic cirrhosis of liver with ascites (CMS/HCC) (HCC) Bianca Chand MD [address] [place] [address] [address] [place] [address] Phone: tel: fax: [facility] (All Locations) Referral ID Status Reason Start Date Expiration Date V isits Requested Visits Authorized [id number] Closed Specialty Services Required 03/03/2019 09/11/2020 1 1 Question Answer Please select the performing region: [facility] (All Locations) [[id number]] # of visits: 1 Reason for Visit * Reason Comments Follow-up PHV Encounter Details Date Type Department Care Team (Late st Contact Info) Description 03/03/2019 8:45 AM CDT Office Visit [facility] [address] [place] [address] Health [address] [place] [address] Dev eHrnandez MD [address] [facility] [address] [place] [address] Bianca Chand MD [address] [address] Alcoholic cirrhosis of liver with ascites (CMS/HCC) [...] 3 03/03/2019 04/02/2019 nicotine (NICODERM CQ) 14 mgIndications:Nefatly valente [address] 1 patch on the [...] on phone: None Gets together: None Attends holiness service: None Active member of club or [...] Denies SI/HI. Previously followed with Psychiatrist in [facility] but does not r emember the name. -at this time, I do not feel comfortable giving him medication for anxiety due to the uncertainty of psych diagnosis -will order one time psych visit to clarify and then connect him to either [place] or [facility] -will task the [...] high risk): negative--not immunized - HCV ( [id number]): + but reports s/p treatment - Gonorrhea/Chlamydia [...] (ABNORMAL) Lipid panel (03/03/2019 10:05 AM CDT) [facility] Cholesterol 116 30 - 199 mg/dL [facility] [...] on 2018. Non-HDL Cholesterol 82 mg/dL [facility] Comment: Interpretive Data Ages < or [...] revised on 2018. Chol/HDL ratio 3 [facility] Blood specimen (specimen) 03/03/2019 10:05 AM CDT 03/03/2019 11:02 AM CDT Bianca Chand MD LAB BLOOD ORDERABLES F inal Result [facility] [address] [place] [address] * Hepatitis C (HCV) RNA PCR, quantitative (03/03/2019 9:59 AM CDT) [facility] HCV RNA result Not Detected [facility] Comment: Interpretive data: The quantifiable range of this assay is 15 IU/mL to 100,000,000 IU/mL (1.18 log IU/mL to 8.00 log IU/mL). Testing was performed by the HAR[employer]IT AmpliPrep/HARJIT TaqMan HCV Test version 2.0 ([employer] Testing performed at [facility] Current Interpretive Data was last revised on 2015. Blood specimen (specimen) 03/03/2019 9:59 AM CDT 03/03/2019 12:01 PM CDT us Bianca Chand MD LAB MICROBIOLOGY - GEN ERAL ORDERABLES Final Result [facility] [address] [place] [address] documented in this encounter Visit Diagnoses Diagnosis [...] documented as of this encounter Care Teams Appraisal Coordinator Relationship Specialty Start Date End Date Bianca Chand MD [address] [place] [id number] PCP - General Internal Medicine 03/02/19 06/02/19 documented as of this encounter
--- OUTSIDE RECORDS SUMMARY | 2024-06-27 10:35 | XMS_ITS | Encounter Summary ---
Author Organization [facility] Healthcare Address [address] [place] [address] Care Team Providers Care Sugar Cane Planter Name Role Phone No, Physician Primary Care Provider [phone] Bianca Chand MD Primary Care Provider Reason for Visit * Reason Onset Date Comments staff message 02/26/2019 Encounter Details Date Type Department Care Team (Late st Contact Info) Description 02/26/2019 Telephone [facility] Primary Care Medicine Clinic [address] [facility] [address] [place] [address] No, Physician staff message Social [...] for a new appointment. Phone number is [phone]. Thanks documented in this encounter Plan of Treatment Not on file documented as of this encounter Visit Diagnoses Not on filedocumented in this encounter Additional Health Concerns Infection Onset Date Last Indicated Resolved Time 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 Care Teams Sugar Cane Planter Relationship Specialty Start Date End Date No, Physician PCP - General 02/21/19 03/01/19 Bianca Cahnd MD [address] [address] PCP - General Internal Medicine 03/02/19 06/02/19 documented as of this encounter
--- OUTSIDE RECORDS SUMMARY | 2024-06-27 10:35 | XMS_ITS | Encounter Summary ---
Author Organization [facility] Care Team Providers Care Wind Project Manager Name Role Phone Bianca Chand MD [...] documented as of this encounter Care Teams Wind Project Manager Relationship Specialty Start Date End Date Bianca Chand MD [address] [address] PCP - General Internal Medicine 03/02/19 06/02/19 documented as of this encounter
--- OUTSIDE RECORDS SUMMARY | 2024-06-27 10:35 | XMS_ITS | Encounter Summary ---
Author Organization [facility] Healthcare Address [address] [place] [address] Care Team Providers Care Waste Machine Tender Name Role Phone No, Physician Primary Care Provider [phone] Bianca Chand MD Primary Care Provider Reason for Visit * Reason Onset Date Comments staff message 02/25/2019 Encounter Details Date Type Department Care Team (Late st Contact Info) Description 02/25/2019 Telephone [facility] Primary Care Medicine Clinic [address] [facility] [address] [place] [address] No, Physician staff message Social [...] would like to establish care at the [facility] med clinic. ADD 02/25. Will need appt within 5 days of discharge. Thanks! Preeti documented in this encounter Plan of Treatment Not on file documented as of this encounter Visit Diagnoses Not on filedocumented in this encounter Additional Health Concerns Infection Onset Date Last Indicated Resolved Time 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 Care Teams Waste Machine Tender Relationship Specialty Start Date End Date No, Physician PCP - General 02/21/19 03/01/19 Bianca Chand MD [address] [address] PCP - General Internal Medicine 03/02/19 06/02/19 documented as of this encounter
--- OUTSIDE RECORDS SUMMARY | 2024-06-27 10:35 | XMS_ITS | Encounter Summary ---
Author Organization [facility] Healthcare Address [address] [place] [address] Care Team Providers Care Tray Server Name Role Phone Bianca Chand MD Primary Care Provider Jayne Bowen MD Primary Care Provider + Griselda Juarez FIELD RADIO OPERATOR Primary Care Provide r No, Physician Primary Care Provider [phone] Referring, Unknown Primary Care Provider Unav ailable Michelle Delcid MD Primary Care Provider [phone] Encounter Details Date Type Department Care Team (Late st Contact Info) Description 06/25/2019 Documentation [facility] Social Work [address] [place] [address] Lisseth Sy LCSW Social History Tobacco Use [...] documented as of this encounter Care Teams Tray Server Relationship Specialty Start Date End Date Bianca Chand MD PCP - General 06/24/19 08/13/19 Jayne Bowen MD [address] [place] [address] PCP - General 08/14/19 01/06/20 Griselda Juarez NP [address] [place] [address] PCP - General Nurse Practitioner 01/07/20 04/07/20 No, Physician PCP - General 04/08/20 05/26/20 Referring, Neeraj, PCP - General Pediatrics 03/19/22 04/26/22 Michelle Delcid MD [address] [place] [address] PCP - General Family Medicine 04/27/22 documented as of this encounter
--- OUTSIDE RECORDS SUMMARY | 2024-06-27 10:35 | XMS_ITS | Encounter Summary ---
Author Organization [facility] Healthcare Address [address] [place] [address] Care Team Providers Care Criminalist Technician Name Role Phone Bianca Chand MD Primary Care Provider Encounter Details Date Type Department Care Team (Late st Contact Info) Description 03/10/2019 Orders Only [facility] Primary Care Medicine Clinic [address] [facility] [address] [place] [address] Bianca Chand MD [address] [facility] [address] [place] [address] Social History Tobacco Use Types [...] documented as of this encounter Care Teams Criminalist Technician Relationship Specialty Start Date End Date Bianca Chand MD [address] [place] [id number] PCP - General Internal Medicine 03/02/19 06/02/19 documented as of this encounter
--- OUTSIDE RECORDS SUMMARY | 2024-06-27 10:35 | XMS_ITS | Encounter Summary ---
Author Organization [facility] Healthcare Address [address] [place] [address] Care Team Providers Care Top Dyeing Machine Loader Name Role Phone Bianca Chand MD Primary Care Provider Reason for Referral * Diagnostic Imaging (Routine) - Closed Specialty Diagnoses / Procedures Referred By Kileyac t Referred To Contact Diagnoses Primary osteoarthritis involving multiple joints Procedures XR Knee Right 3 Views Cristino Chauhan MD [address] [place] [address] Phone: tel: fax: [address] [phone] Referral ID Status Reason Start Date Expiration Date Visits Re quested Visits Authorized [id number] Closed 04/02/2019 10/11/2020 1 1 * Diagnostic Imaging (Routine) - Closed Specialty Diagnoses / Procedures Referred By Hoang t Referred To Contact Diagnoses Primary osteoarthritis involving multiple joints Procedures XR Knee Left 3 Views Cristino Chauhan MD [address] [place] [address] Phone: tel: fax: [address] [phone] Referral ID Status Reason Start Date Expiration Date Visits Re quested Visits Authorized [id number] Closed 04/02/2019 10/11/2020 1 1 * Diagnostic Imaging (Routine) - Closed Specialty Diagnoses / Procedures Referred By Hoang leroy Referred To Contact Diagnoses Primary osteoarthritis involving multiple joints Procedures XR Shoulder Right 2 or More Views Cristino Chauhan MD [address] [place] [address] Phone: tel: fax: [address] [phone] Referral ID Status Reason Start Date Expiration Date Visits Re quested Visits Authorized [id number] Closed 04/02/2019 10/11/2020 1 1 * Diagnostic Imaging (Routine) - Closed Specialty Diagnoses / Procedures Referred By Hoang leroy Referred To Contact Diagnoses Primary osteoarthritis involving multiple joints Procedures XR Shoulder Left 2 or More Views Cristino Chauhan MD [address] [place] [address] Phone: tel: fax: [address] [phone] Referral ID Status Reason Start Date Expiration Date Visits Re quested Visits Authorized [id number] Closed 04/02/2019 10/11/2020 1 1 Reason for Visit * Reason Comments Follow-up hospital visit for h emoptysis Encounter Details Date Type Department Care Team (Latest Contact Info) Description 04/02/2019 8:45 AM CDT Office Visit [facility] Primary Care Medicine Clinic [facility] [address] [place] [address] Dev Hernandez MD [address] [facility] [address] [place] [address] Cristino Chauhan MD [address] [place] [address] [address] [place] [address] Hepatitis C virus infection without hepatic coma, [...] file Gets together: Not on file Attends muslim service: Not on file Active member of [...] mood stable. Previously followed with psychiatrist in [facility] but does not remember the name. - Patient scheduled for one-time psych visit tomorrow - Will require connection with another psychiatrist after that (i.e. [place] or [facility]), SW tasked to assist #COPD: [...] Negative (receiving vaccine below) - HCV ( [id number]): + but reports s/p treatment (HCV RNA [...] Medicine PGY-3 04/02/19 Attending Addendum, Staffed by Heather Cormier MD 04/02/2019: Here for f/u Has [...] documented as of this encounter Care Teams Top Dyeing Machine Loader Relationship Specialty Start Date End Date Bianca Chand MD [address] [address] PCP - General Internal Medicine 03/02/19 06/02/19 documented as of this encounter
--- OUTSIDE RECORDS SUMMARY | 2024-06-27 10:35 | XMS_ITS | Encounter Summary ---
Author Organization [facility] Healthcare Address [address] [place] [address] Care Team Providers Care Sales Agent Food Vending Service Name Role Phone Jayne Bowen MD Primary Care Provider + Encounter Details Date Type Department Care Team ([facility] st Contact Info) Description 06/03/2019 2:25 AM BOTTOMING ROOM SUPERVISOR - 06/03/2019 5:25 AM BOTTOMING ROOM SUPERVISOR Hospital Encounter [address] [address] Unknown, Lisa Juan MD [address] [place] [address] [place] [address] Discharge Disposition: Discharge to home or self [...] Comments Blood Pressure 110/77 06/03/2019 2:25 AM BOTTOMING ROOM SUPERVISOR Pulse 88 06/03/2019 2:25 AM BOTTOMING ROOM SUPERVISOR Temperature 36.5 ??C (97.7 ??F) 06/03/2019 2:25 AM CS T Respiratory Rate - - Oxygen Saturation 96% 06/03/2019 2:25 AM BOTTOMING ROOM SUPERVISOR Inhaled Oxygen Concentration - - Weight 90.7 kg (199 lb 15.4 oz) 06/03/2019 2:25 AM BOTTOMING ROOM SUPERVISOR Height 172.7 cm (5' 8 ) 06/03/2019 2:25 AM BOTTOMING ROOM SUPERVISOR Body Mass Index 30.4 06/03/2019 2:25 AM BOTTOMING ROOM SUPERVISOR documented in this encounter Medications at Time [...] (STAPHYLOCOCCUS AUREUS) PCR Routine 06/03/2019 3:00 AM BOTTOMING ROOM SUPERVISOR CT CERVICAL SPINE WO CONTRAST 06/03/2019 2:30 AM BOTTOMING ROOM SUPERVISOR CT CHEST W CONTRAST 06/03/2019 2 :30 AM BOTTOMING ROOM SU[address]VISOR CT ABDOMEN PELVIS W CONTRAST 06/03/2019 12:00 AM BOTTOMING ROOM SUPERVISOR CT HEAD WO CONTRAST 06/03/2019 1 2:00 AM BOTTOMING ROOM SUPERVISOR documented in this encounter Results * Infection Prevention MRSA Only (Staphylococcus aureus) PCR (06/03/2019 3:00 AM BOTTOMING ROOM SUPERVISOR) MRSA Surveill Initial POSITIVE NEGATIVE [facility] Comment: ?MRSA target DNA sequences are detected. ISOLATION ALERT ? THIS ORGANISM REQUIRES PATIENT ISOLATION 06/03/2019 3:00 AM BOTTOMING ROOM SUPERVISOR 06/03/2019 3:12 AM BOTTOMING ROOM SUPERVISOR Narrative [facility] - 06/03/2019 4:22 AM BOTTOMING ROOM SUPERVISOR Collected By DC Resulting Agency Comment ER us Lisa Najera MD LAB MICROBIOLOGY - GENERA L ORDERABLES Final Result [facility] [address] [place] [address], [facility] [phone] * CT Cervical Spine WO Contrast (06/03/2019 2:30 AM BOTTOMING ROOM SUPERVISOR) Anatomical Region Laterality Modality Spine N/A Computed Tomogra phy 06/03/2019 4:16 AM BOTTOMING ROOM SUPERVISOR Narrative 06/03/2019 4:18 AM BOTTOMING ROOM SUPERVISOR Patient Name: CHESTER BRUMFIELD ?Ordering Dr: Lisa Najera MD ?? D.O.B: 1970 ? Exam Date: 06/03/19 ?? 0230 ?? Age: 48 ?Sex: Male ? MR#: [id number] ?? Loc: ? RADIOLOGY REPORT ?? Order #[id number] ?? CT Scan ? CT C-Spine WO [...] 4:18 AM ?? T: ? Report ID: [id number] ?? Reading Location: ??[id number] ? REPORT ELECTRONICALLY SIGNED IN OTHER VENDOR SYSTEM ?? Resulting Agency Comment E Procedure Note Kylee Benavidez MD - 06/03/2019 Patient Name: CHESTER BRUMFIELD [facility] Dr: Lisa Najera MD D.O.B: 1970 Exam Date: 06/03/19 0230 Age: 48 Sex: Male MR#: [id number] Loc: RADIOLOGY REPORT Order #[id number] CT Scan CT C-Spine WO IV Contrast [...] by Kylee Benavidez M.D. T: Report ID: [id number] Reading Location: [id number] REPORT ELECTRONICALLY SIGNED IN OTHER VENDOR SYSTEM us Lisa Najera MD IMG CT PROCEDURES Final R esult * CT Chest W Contrast (06/03/2019 2:30 AM BOTTOMING ROOM SUPERVISOR) Anatomical Region Laterality Modality Body N/A Computed Tomogra phy 06/03/2019 4:10 AM BOTTOMING ROOM SUPERVISOR Narrative 06/03/2019 4:16 AM BOTTOMING ROOM SUPERVISOR Patient Name: CHESTER BRUMFIELD JR ?Ordering Dr: Lisa Najera MD ?? D.O.B: 1970 ? Exam Date: 06/03/19 ?? 0230 ?? Age: 48 ?Sex: Male ? MR#: [id number] ?? Loc: ? RADIOLOGY REPORT ?? Order #[id number] ?? CT Scan ? CT Chest W [...] 4:16 AM ?? T: ? Report ID: [id number] ?? Reading Location: ??[id number] ? REPORT ELECTRONICALLY SIGNED IN OTHER VENDOR SYSTEM ?? Resulting Agency Comment E Procedure Note Kylee Benavidez MD - 06/03/2019 [facility] BRUMFIELD [facility] Lisa Najera MD D.O.B: 1970 Exam Date: 06/03/19229 Age: 48 Sex: Male MR#: [id number] Loc: RADIOLOGY REPORT Order #[id number] CT Scan CT Chest W IV Contrast [...] by Kylee Benavidez M.D. T: Report ID: [id number] Reading Location: [place] [address] REPORT ELECTRONICALLY SIGNED IN OTHER VENDOR SYSTEM us Lisa Najera MD IMG CT PROCEDURES Final R esult * CT Abdomen Pelvis W Contrast (06/03/2019 12:00 AM BOTTOMING ROOM SUPERVISOR) Anatomical Region Laterality Modality Body N/A Computed Tomogra phy 06/03/2019 4:10 AM BOTTOMING ROOM SUPERVISOR Narrative 06/03/2019 4:16 AM BOTTOMING ROOM SUPERVISOR Patient Name: CHESTER BRUMFIELD JR ?Ordering Dr: Lisa Najera MD ?? D.O.B: 1970 ? Exam Date: 06/03/19 ?? 0000 ?? Age: 48 ?Sex: Male ? MR#: [id number] ?? Loc: ? RADIOLOGY REPORT ?? Order #[id number] ?? CT Scan ? CT Abd/Pelvis W [...] 4:16 AM ?? T: ? Report ID: [id number] ?? Reading Location: ??[id number] ? REPORT ELECTRONICALLY SIGNED IN OTHER VENDOR SYSTEM ?? Resulting Agency Comment E Procedure Note Kylee Benavidez MD - 06/03/2019 Patient Name: CHESTER BRUMFIELD Dr: Lisa Najera MD D.O.B: 1970 Exam Date: 06/03/19 0000 Age: 48 Sex: Male MR#: [id number] Loc: RADIOLOGY REPORT Order #[id number] CT Scan CT Abd/Pelvis W IV Contrast [...] by Kylee Benavidez M.D. T: Report ID: [id number] Reading Location: [id number] REPORT ELECTRONICALLY SIGNED IN OTHER VENDOR SYSTEM us Lisa Najera MD IMG CT PROCEDURES Final R esult * CT Head WO Contrast (06/03/2019 12:00 AM BOTTOMING ROOM SUPERVISOR) Anatomical Region Laterality Modality Head and Neck N/A Computed Tomogra phy 06/03/2019 4:08 AM BOTTOMING ROOM SUPERVISOR Narrative 06/03/2019 4:10 AM BOTTOMING ROOM SUPERVISOR Patient Name: CHESTER BRUMFIELD JR ?Ordering Dr: Lisa Najera MD ?? D.O.B: 1970 ? Exam Date: 06/03/19 ?? 0000 ?? Age: 48 ?Sex: Male ? MR#: [id number] ?? Loc: ? RADIOLOGY REPORT ?? Order #[id number] ?? CT Scan ? CT Head WO [...] 4:10 AM ?? T: ? Report ID: [id number] ?? Reading Location: ??[id number] ? REPORT ELECTRONICALLY SIGNED IN OTHER VENDOR SYSTEM ?? Resulting Agency Comment E Procedure Note Kylee Benavidez MD - 06/03/2019 Patient Name: CHESTER BRUMFIELD Eddie [address] Dr: Lisa Najera MD DDenisO.B: 1970 Exam Date: 06/03/19 0000 Age: 48 Sex: Male MR#: [id number] Loc: RADIOLOGY REPORT Order #[id number] CT Scan CT Head WO IV Contrast [...] by Kylee Benavidez M.D. T: Report ID: [id number] Reading Location: [place] [address] REPORT ELECTRONICALLY SIGNED IN OTHER VENDOR SYSTEM Lisa Najera MD IMG CT PROCEDURES Final R esult documented in this encounter Visit Diagnoses Not on filedocumented in this encounter Additional Health Concerns Infection Onset Date Last Indicated Resolved Time 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 Care Teams Sales Agent Food Vending Service Relationship Specialty Start Date End Date Jayne Bowen MD [address] [place] [address] PCP - General 06/03/19 06/23/19 documented as of this encounter
--- OUTSIDE RECORDS SUMMARY | 2024-06-27 10:35 | XMS_ITS | Encounter Summary ---
Author Organization [facility] Address [address] [place] [address] Phone Care Team Providers Care Truss Designer Name Role Phone Bianca Chand MD Primary Care Provider Encounter Details Date Type Department Care Team (Late st Contact Info) Description 03/14/2019 Documentation [facility] Psychiatry [address] [facility] [address] [place] [address] Rachelle Herndon MD [address] [facility] [address] [place] [address] Social History Tobacco Use Types [...] after hospitalization. Previously followed with psychiatrist in [facility] that he does not remember the [...] documented as of this encounter Care Teams Truss Designer Relationship Specialty Start Date End Date Bianca Chand MD [address] [address] PCP - General Internal Medicine 03/02/19 06/02/19 documented as of this encounter
--- OUTSIDE RECORDS SUMMARY | 2024-06-27 10:35 | XMS_ITS | Encounter Summary ---
Author Organization [facility] Healthcare Address [address] [place] [address] Care Team Providers Care Hoisting Machine Operator Name Role Phone Bianca Chand MD Primary Care Provider Reason for Visit * Reason Comments Return Patient 1 time psych visit Encounter Details Date Type Department Care Team (Latest Contact Info) Description 04/03/2019 12:45 PM CDT Clinical Support [facility] Primary Care Medicine Clinic [address] [facility] [address] [place] [address] Dev Hernandez MD [address] [facility] [address] [place] [address] Alcohol dependence with withdrawal delirium (CMS/HCC); Anxiety; [...] ago, resulting in 5-6 psychiatric admissions in [place]. He reports that he was diagnosed with schizophrenia and psychosis during those encounters, and subsequently followed with outpatient providers. Most recently he saw someone in [place] (does not remember the name) who prescribed him seroquel which he found to be oversedating. Other past medication trials include antidepressants , alprazolam, guanfacine, methylphenidate and haldol. His most recent hospitalization was at [facility] in September 2018 at which [...] Sensorium and Intellect: Chester Dubose , [facility] [address]... (Clinic), the 2018 Attention: May Language: fluent Angolan, naming intact to newton and pen Calculations: 5*5=25, 6*8=48, $2.25 = 9 quarters Fund of Knowledge: [facility], [place], [place], [place], [place] Memory: 3/3 registration > 3/3 for purple, [...] thoughts of harming others. Jennifer Dietrich M.D. Parcel Wrapper (PGY-IV) documented in this encounter Plan of [...] documented as of this encounter Care Teams Hoisting Machine Operator Relationship Specialty Start Date End Date Bianca Chand MD [address] [address] PCP - General Internal Medicine 03/02/19 06/02/19 documented as of this encounter
--- OUTSIDE RECORDS SUMMARY | 2024-06-27 10:35 | XMS_ITS | Encounter Summary ---
Author Organization [facility] Healthcare Address [address] [place] [address] Care Team Providers Care Lobby Porter Name Role Phone Bianca Chand MD Primary Care Provider Reason for Visit * Reason Onset Date Comments Follow-up 04/02/2019 Encounter Details Date Type Department Care Team (Late Contact Info) Description 04/02/[address] [facility] Primary Care Medicine Clinic [address] [facility] [address] [place], [place] [id number] Cristino Cuenca MD [address] [facility] [address] [place] [address] Follow-up Social History Tobacco Use [...] that he call the GI scheduling center ([phone]) to schedule the EGD. I relayed this [...] documented as of this encounter Care Teams Lobby Porter Relationship Specialty Start Date End Date Bianca Chand MD [address] [place] [id number] PCP - General Internal Medicine 03/02/19 06/02/19 documented as of this encounter
--- OUTSIDE RECORDS SUMMARY | 2024-06-27 10:35 | XMS_ITS | Encounter Summary ---
Author Organization [facility] Healthcare Address [address] [place] [address] Care Team Providers Care Buffet Waiter/Waitress Name Role Phone No, Physician Primary Care Provider [phone] Encounter Details Date Type Department Care Team (Late st Contact Info) Description 02/21/2019 5:40 AM CDT - 02/25/2019 3:10 PM CDT Hospital Encounter [facility] [address] [place] [address] Benson Perez MD PhD [address] [facility] [address] [place] [address] Carlos Rojo MD [phone] [place] [address] Tanya Gant MD [address] [facility] [address] [place] [address] Colleen Damon MD [address] [place] [address] [address] [place] [address] Hematemesis, presence of nausea not specified (Primary [...] Primary Care Physician at Discharge: Physician No [phone] Admission Date: 02/21/2019 Discharge Date: 02/25/2019 Admission Location: [facility] Primary Discharge Diagnosis: Upper GI Bleed [...] tremens without seizures. ?? He presented to [facility] following 4 episodes of hematemesis [...] 1.5 and Hb 11.6 (repeat 11.1) at [facility]. CT A/P was consistent with cirrhosis andportal hypertension. At [facility], patient was started on a Protonix gtt, Octreotide gtt, and NS 100cc/hr. He also received 4mg Ativan for EtOH withdrawal and Compazine/Zofran for nausea. At arrival to [facility], patient has 2 PIV (18g, 20g) for [...] were sent to his local pharmacy in [place], [place]. 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 No [...] utilize the resources provided by your social media marketer to abstain from alcohol. You should continue [...] Center 02/28/2019 1:45 PM Ainsley Mcfarland MD [facility] Contact Information for Follow-ups Gastroententerology Specialty: Gastroenterology [...] utilize the resources provided by your social media marketer to abstain from alcohol. You should continue [...] Age: 48 y.o. male Admit: 02/21/2019 Bed: [id number] Subjective Chief complaint: GI Bleed Interval History: [...] mg, 1 mg, oral, Q8H PRN, Juancho Rodirguez MD ??? nadolol (CORGARD) tablet 20 mg, [...] through Sunday from 0800 to 1700 at [phone]. From 1700 to 0800 Sunday through Sunday and all day Sunday/Sunday, we can be reached at [phone]. Amrit Painter MD Gastroenterology Fellow, * Preeti Garay RN - 02/24/2019 3:05 PM CDT 02/24/19 1400 County Information [facility] [place], [place] Patient Information Primary Caregiver Self Support [...] Responsibility Patient/Designated decision maker was informed of [facility] fiduciary relationship as necessary Chart reviewed for: [...] Confirmed: No PCP. Would like appt at [facility] medicine clinic Referrals initiated to: none at [...] if I may be of any assistance. [phone] * Juancho Rodriguez MD - 02/24/2019 2:53 PM CDT Daily Progress Note Medicine FIRM Name: Chester Dubose Today: February 24, 2019 : 1970 Age: 48 y.o. male Admit: 02/21/2019 Bed: [id number] Subjective Chief complaint: GI Bleed Interval History: [...] 02/22/19699 - 02/23/1965802/23/19699 - 02/24/19 0659 Shift 5709-5805 8721-3492 24 Hour Total 3782-3306 1067-0391 24 Hour Total INTAKE P.O. 8693 304 2080 600 600 I.V.(mL/kg) 135(1.6) 108.3(1.3) 243.3(2.8) 41(0.5) [...] Type of test: TTE w/Doppler Hospital #: [id number] Date of : 1970 (M) Blind Cleaner: Beatriz Plata RDCS Referring Physician: CARLOS ROJO MD Contrast Agent: Contrast Administered by: Supervised/Interpreted by: Montrell Michel MD Diagnosis: Dyspnea Pre-Op Location: [facility] Reason for test: Pre [...] 2=Hypo 3=Akinetic 4=Dyskin./Aneurysm 0=Not visualized) Parasternal Long Avis:MAS=1 BAS=1 MP=1 BP=1 Parasternal Short Avis:MAS=1 MS=1 IL=1 MP=1 ML=1 MA=1 Apical 4 [...] MD By signing this report, the attending blasting helper certifies that he or she has personally [...] ~9 since arrival. -Continue CLD, NPO at [facility] for possible EGD Hepatitis C Assessment & [...] plan with the ICU team and other medical/lending consultant staff. * Ranjan Enriquez MD - [...] - 02/23/19 0659 Shift 24 Hour Total 2866-0666 9462-7133 24 Hour Total INTAKE P.O. 240 240 [...] plan with the ICU team and other medical/lending consultant staff. documented in this encounter H&P [...] no record available. VSS upon arrival at [facility] ICU, repeat hbg 10.1-->9.5, plt 81, INR 1.63 at [facility]. No hematemesis or melenia after arrival at [facility]. U/S showed diffuse hepatic steatosis and cirrhosis, [...] but is now on the list to [facility]. - maintain 2 large IVs [...] through Sunday from 0800 to 1700 at [phone]. From 1700 to 0800 Sunday through Sunday and all day Sunday/Sunday, we can be reached at [phone]. Lawanda Cohen MD PhD Gastroenterology Fellow Cosigned [...] delirium tremens without seizures. He presented to [facility] following 4 episodes of hematemesis [...] 1.5 and Hb 11.6 (repeat 11.1) at [facility]. CT A/P was consistent with cirrhosis andportal hypertension. At [facility], patient was started on a Protonix gtt, Octreotide gtt, and NS 100cc/hr. He also received 4mg Ativan for EtOH withdrawal and Compazine/Zofran for nausea. 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 Objective Scheduled [...] N/A Reilly Oneill PGY-1 02/21/2019 11:07 AM [phone] Cosigned by Capo Aguilera MD at 02/21/2019 [...] plan with the ICU team and other medical/lending consultant staff. documented in this encounter Procedure Notes * Phi Vasquez MD - 02/24/2019 7:46 AM CDTAssociated Order(s): EGD [facility] Patient Name: Chester Dubose Procedure Date: 02/24/2019 7:46 AM Date of : 1970 Admit Type: Inpatient Age: 48 Gender: Male Attending MD: Phi Vasquez M.D. Room: [facility] POD 5 ROOM 224 Note Status: Finalized [...] passed under direct vision. The GIF [id number] endoscope was introduced through the mouth, and [...] On: 02/24/2019 7:46 AM Recognized by the [place] [employer] for promoting quality [...] SW needs at this time. PIPER [place] #[phone] * Lawanda Cohen MD PhD - 02/21/2019 [...] no record available. VSS upon arrival at [facility] ICU, repeat hbg 10.1-->9.5, plt 81, INR 1.63 at [facility]. No hematemesis or melenia after arrival at [facility]. U/S showed diffuse hepatic steatosis and cirrhosis, [...] but is now on the list to [facility]. - maintain 2 large IVs [...] through Sunday from 0800 to 1700 at [phone]. From 1700 to 0800 Sunday through Sunday and all day Sunday/Sunday, we can be reached at [phone]. Lawanda Cohen MD PhD Gastroenterology Fellow Cosigned [...] with pt. Pt verbalizes understanding. Pt to peanut picker prescriptions at [facility] in [place], [place]. To be transported home per friend. [...] 02/21/2019 7:42 AM CDT Pt admitted from [facility] at 0545 per EMS. Pt has 2 PIV with octreotide and protonix running on arrival. Both meds stopped at this time. Blood cultures drawn x 2. Pt refused MICU bath. Pt belongings: Camo hat Camo shorts master black belt Blue shirt Flip flops Pt belongings IN SAFE: $16 lim 1 debit card in contra [facility] with set of keys documented in [...] were sent to his local pharmacy in [place], [place]. 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 No [...] tremens without seizures. ?? He presented to [facility] following 4 episodes of hematemesis [...] 1.5 and Hb 11.6 (repeat 11.1) at [facility]. CT A/P was consistent with cirrhosis andportal hypertension. At [facility], patient was started on a Protonix gtt, Octreotide gtt, and NS 100cc/hr. He also received 4mg Ativan for EtOH withdrawal and Compazine/Zofran for nausea. At arrival to [facility], patient has 2 PIV (18g, 20g) for [...] discharge planning needs arise, please call covering pillowcase cutter. Patient admitted with: GIB Patient transferred from [...] ~9 since arrival. -Continue CLD, NPO at [facility] for possible EGD * Assessment & Plan [...] skin integrity will decrease 02/21/2019 0747 by Biib Laird RN Outcome: Progressing 02/21/2019 0735 by [...] ORDERABLES Final R esult [facility] [address] [place], [place] [id number] * Magnesium (02/24/2019 9:20 PM CDT) Magnesium 1.9 1.4 - 2.5 mg/dL [facility] Blood specimen (specimen) 02/24/2019 9:20 PM CDT 02/24/2019 9:50 PM CDT Colleen Damon MD LAB BLOOD ORDERABLES Final R esult [facility] [address] [place] [address] * Differential, auto (02/24/2019 9:20 PM CDT) Neutrophil abs 3.6 1.7 - 6.5 K/cumm [facility] Imm gran abs 0.0 0.0 - 0.1 K/cumm [facility] Lymphocyte abs 1.1 0.8 - 3.3 K/cumm [facility] Monocyte abs 0.6 0.2 - 0.8 K/cumm [facility] Eosinophil abs 0.2 0.0 - 0.5 K/cumm [facility] Basophil abs 0.0 0.0 - 0.1 K/cumm [facility] Neutrophil pct 65.1 % [facility] Comment: Interpretive Data Percent cell count reference ranges are not reported, since discordance with absolute values may lead to misinterpretation of CBC data. Current Interpretive Data was last revised on 2017. Imm gran pct 0.4 % [facility] Comment: Interpretive Data Percent cell count reference ranges are not reported, since discordance with absolute values may lead to misinterpretation of CBC data. Current Interpretive Data was last revised on 2017. Lymphocyte pct 19.7 % [facility] Comment: Interpretive Data Percent cell count reference ranges are not reported, since discordance with absolute values may lead to misinterpretation of CBC data. Current Interpretive Data was last revised on 2017. Monocyte pct 10.5 % [facility] Comment: Interpretive Data Percent cell count reference ranges are not reported, since discordance with absolute values may lead to misinterpretation of CBC data. Current Interpretive Data was last revised on 2017. Eosinophil pct 3.4 % [facility] Comment: Interpretive Data Percent cell count reference ranges are not reported, since discordance with absolute values may lead to misinterpretation of CBC data. Current Interpretive Data was last revised on 2017. Basophil pct 0.9 % [facility] Comment: Interpretive Data Percent cell count reference ranges are not reported, since discordance with absolute values may lead to misinterpretation of CBC data. Current Interpretive Data was last revised on 2017. Blood specimen (specimen) 02/24/2019 9:20 PM CDT 02/24/2019 9:49 PM CDT Colleen Damon MD LAB BLOOD ORDERABLES Final R esult [facility] [address] [place] [address] * (ABNORMAL) Basic metabolic panel (02/24/2019 9:20 PM CDT) Sodium 137 135 - 145 mmol/L [facility] Potassium, pl See Comment 3.3 - 4.9 mmol/L [facility] Comment:CRDT; Grossly Hemoly zed sample; Unable to test. Chloride 105 97 - 110 mmol/L [facility] CO2 24 22 - 32 mmol/L [facility] Anion gap 8 2 - 15 mmol/L [facility] BUN 3(L) 8 - 25 mg/dL [facility] Creatinine 0.62(L) 0.80 - 1.30 mg/dL [facility] Glucose 103 70 - 199 mg/dL [facility] Comment: Interpretive Data Fasting glucose [...] 2017. Calcium 8.4(L) 8.5 - 10.3 mg/dL [facility] Blood specimen (specimen) 02/24/2019 9:20 PM CDT 02/24/2019 9:50 PM CDT Colleen Damon MD LAB BLOOD ORDERABLES Final R esult Performing Organization Address City/[facility] Co de Phone Number [facility] [address] [address] * (ABNORMAL) CBC with auto differential (02/24/2019 9:20 PM CDT) Pathologist [facility] WBC 5.5 3.8 - 9.9 K/cumm [facility] Hgb 10.0(L) 13.0 - 17.5 g/dL [facility] Hct 30.8(L) 38.9 - 50.3 % [facility] Plt 87(L) 150 - 400 K/cumm [facility] MPV 10.7 9.1 - 12.3 fL [facility] RBC 3.06(L) 4.30 - 5.80 M/cumm [facility] MCV 100.7(H) 81.3 - 96.4 fL [facility] MCH 32.7 27.1 - 33.3 pg [facility] MCHC 32.5 32.3 - 35.7 g/dL [facility] RDW CV 14.3 11.1 - 14.9 % [facility] RDW SD 51.7(H) 35.7 - 48.1 fL [facility] NRBC abs 0.00 0.00 - 0.01 K/cumm [facility] Blood specimen (specimen) 02/24/2019 9:20 PM CDT 02/24/2019 9:49 PM CDT Colleen Damon MD LAB BLOOD ORDERABLES Final R esult Performing Organization Address [facility]/ZIP Co de Phone Number [address] [address] * EGD (02/24/2019 7:46 AM CDT) Anatomical Region Laterality Modality Other Narrative Procedure Note Phi Vasquez MD - 02/24/2019 7:46 AM CDT [facility] Patient Name: Chester Dubose Procedure Date: 02/24/2019 7:46 AM Date of : 1970 Admit Type: Inpatient Age: 48 Gender: Male Attending MD: Phi Vasquez M.D. Room: [facility] OR POD 5 ROOM 224 Note Status: [...] was passed under direct vision.The GIF [id number] endoscope was introduced throughthe mouth, and advanced [...] On: 02/24/2019 7:46 AM Recognized by the [place] [employer] for promoting quality in endoscopy us Phi Vasquez MD ENDOSCOPY PROCEDURES Fin al Result * Differential, auto (02/24/2019 4:35 AM CDT) Neutrophil abs 2.4 1.7 - 6.5 K/cumm [facility] Imm gran abs 0.0 0.0 - 0.1 K/cumm [facility] Lymphocyte abs 0.9 0.8 - 3.3 K/cumm [facility] Monocyte abs 0.3 0.2 - 0.8 K/cumm [facility] Eosinophil abs 0.2 0.0 - 0.5 K/cumm [facility] Basophil abs 0.0 0.0 - 0.1 K/cumm [facility] Neutrophil pct 62.7 % [facility] Comment: Interpretive Data Percent cell count reference ranges are not reported, since discordance with absolute values may lead to misinterpretation of CBC data. Current Interpretive Data was last revised on 2017. Imm gran pct 0.3 % [facility] Comment: Interpretive Data Percent cell count reference ranges are not reported, since discordance with absolute values may lead to misinterpretation of CBC data. Current Interpretive Data was last revised on 2017. Lymphocyte pct 22.6 % [facility] Comment: Interpretive Data Percent cell count reference ranges are not reported, since discordance with absolute values may lead to misinterpretation of CBC data. Current Interpretive Data was last revised on 2017. Monocyte pct 8.7 % [facility] Comment: Interpretive Data Percent cell count reference ranges are not reported, since discordance with absolute values may lead to misinterpretation of CBC data. Current Interpretive Data was last revised on 2017. Eosinophil pct 4.4 % [facility] Comment: Interpretive Data Percent cell count reference ranges are not reported, since discordance with absolute values may lead to misinterpretation of CBC data. Current Interpretive Data was last revised on 2017. Basophil pct 1.3 % [facility] Comment: Interpretive Data Percent cell count reference ranges are not reported, since discordance with absolute values may lead to misinterpretation of CBC data. Current Interpretive Data was last revised on 2017. Blood specimen (specimen) 02/24/2019 4:35 AM CDT 02/24/2019 6:08 AM CDT Carlos Rojo MD LAB BLOOD ORDERABLE S Final Result [address] [address] * (ABNORMAL) CBC with auto differential (02/24/2019 4:35 AM CDT) WBC 3.9 3.8 - 9.9 K/cumm [facility] Hgb 9.6(L) 13.0 - 17.5 g/dL [facility] Hct 29.1(L) 38.9 - 50.3 % [facility] Plt 78(L) 150 - 400 K/cumm [facility] MPV 11.4 9.1 - 12.3 fL [facility] RBC 2.90(L) 4.30 - 5.80 M/cumm [facility] MCV 100.3(H) 81.3 - 96.4 fL [facility] MCH 33.1 27.1 - 33.3 pg [facility] MCHC 33.0 32.3 - 35.7 g/dL [facility] RDW CV 14.0 11.1 - 14.9 % [facility] RDW SD 50.6(H) 35.7 - 48.1 fL [facility] NRBC abs 0.00 0.00 - 0.01 K/cumm [facility] Blood specimen (specimen) 02/24/2019 4:35 AM CDT 02/24/2019 6:08 AM CDT Carlos Rojo MD LAB BLOOD ORDERABLE S Final Result Performing Organization Address [facility] Co de Phone Number [address] [address] * Phosphorus (02/24/2019 4:35 AM CDT) Phosphorus, pl 2.9 2.3 - 4.5 mg/dL [facility] Blood specimen (specimen) 02/24/2019 4:35 AM CDT 02/24/2019 6:10 AM CDT Carlos Rojo MD LAB BLOOD ORDERABLE S Final Result Performing Organization Address [facility]/ZIP Co de Phone Number [facility] [address] [place] [address] * Magnesium (02/24/2019 4:35 AM CDT) Pathologist [facility] Magnesium 1.7 1.4 - 2.5 mg/dL [facility] Blood specimen (specimen) 02/24/2019 4:35 AM CDT 02/24/2019 6:10 AM CDT Carlos Rojo MD LAB BLOOD ORDERABLE S Final Result Performing Organization Address [facility] de Phone Number [facility] [address] [place] [address] * (ABNORMAL) Basic metabolic panel (02/24/2019 4:35 AM CDT) Pathologist [facility] Sodium 138 135 - 145 mmol/L [facility] Potassium, pl 3.3 3.3 - 4.9 mmol/L [facility] Chloride 105 97 - 110 mmol/L [facility] CO2 26 22 - 32 mmol/L [facility] Anion gap 7 2 - 15 mmol/L [facility] BUN 4(L) 8 - 25 mg/dL [facility] Creatinine 0.72(L) 0.80 - 1.30 mg/dL [facility] Glucose 127 70 - 199 mg/dL [facility] Comment: Interpretive Data Fasting glucose [...] 2017. Calcium 8.3(L) 8.5 - 10.3 mg/dL [facility] Blood specimen (specimen) 02/24/2019 4:35 AM CDT 02/24/2019 6:10 AM CDT Carlos Rojo MD LAB BLOOD ORDERABLE S Final Result [facility] [address] [place] [address] * Differential, auto (02/23/2019 5:06 PM CDT) Neutrophil abs 2.5 1.7 - 6.5 K/cumm [facility] Imm gran abs 0.0 0.0 - 0.1 K/cumm [facility] Lymphocyte abs 0.8 0.8 - 3.3 K/cumm [facility] Monocyte abs 0.3 0.2 - 0.8 K/cumm [facility] Eosinophil abs 0.1 0.0 - 0.5 K/cumm [facility] Basophil abs 0.0 0.0 - 0.1 K/cumm [facility] Neutrophil pct 66.6 % [facility] Comment: Interpretive Data Percent cell count reference ranges are not reported, since discordance with absolute values may lead to misinterpretation of CBC data. Current Interpretive Data was last revised on 2017. Imm gran pct 0.3 % [facility] Comment: Interpretive Data Percent cell count reference ranges are not reported, since discordance with absolute values may lead to misinterpretation of CBC data. Current Interpretive Data was last revised on 2017. Lymphocyte pct 21.2 % [facility] Comment: Interpretive Data Percent cell count reference ranges are not reported, since discordance with absolute values may lead to misinterpretation of CBC data. Current Interpretive Data was last revised on 2017. Monocyte pct 7.9 % [facility] Comment: Interpretive Data Percent cell count reference ranges are not reported, since discordance with absolute values may lead to misinterpretation of CBC data. Current Interpretive Data was last revised on 2017. Eosinophil pct 3.2 % [facility] Comment: Interpretive Data Percent cell count reference ranges are not reported, since discordance with absolute values may lead to misinterpretation of CBC data. Current Interpretive Data was last revised on 2017. Basophil pct 0.8 % [facility] Comment: Interpretive Data Percent cell count reference ranges are not reported, since discordance with absolute values may lead to misinterpretation of CBC data. Current Interpretive Data was last revised on 2017. Blood specimen (specimen) 02/23/2019 5:06 PM CDT 02/23/2019 5:58 PM CDT Carlos Rojo MD LAB BLOOD ORDERABLE S Final Result Performing Organization Address [facility] Co de Phone Number [facility] [address] [place], [place] [id number] * (ABNORMAL) CBC with auto differential (02/23/2019 5:06 PM CDT) WBC 3.8 3.8 - 9.9 K/cumm [facility] Hgb 9.9(L) 13.0 - 17.5 g/dL [facility] Hct 29.9(L) 38.9 - 50.3 % [facility] Plt 80(L) 150 - 400 K/cumm [facility] MPV 11.0 9.1 - 12.3 fL [facility] RBC 2.96(L) 4.30 - 5.80 M/cumm [facility] MCV 101.0(H) 81.3 - 96.4 fL [facility] MCH 33.4(H) 27.1 - 33.3 pg [facility] MCHC 33.1 32.3 - 35.7 g/dL [facility] RDW CV 14.0 11.1 - 14.9 % [facility] RDW SD 51.5(H) 35.7 - 48.1 fL [facility] NRBC abs 0.00 0.00 - 0.01 K/cumm [facility] Blood specimen (specimen) 02/23/2019 5:06 PM CDT 02/23/2019 5:58 PM CDT Carlos Rojo MD LAB BLOOD ORDERABLE S Final Result [facility] [address] [place] [address] * Differential, auto (02/23/2019 5:18 AM CDT) [...] K/cumm [facility] Neutrophil pct 60.2 % [facility] Comment: Interpretive Data Percent cell count reference ranges are not reported, since discordance with absolute values may lead to misinterpretation of CBC data. Current Interpretive Data was last revised on 2017. Imm gran pct 0.0 % [facility] Comment: Interpretive Data Percent cell count reference ranges are not reported, since discordance with absolute values may lead to misinterpretation of CBC data. Current Interpretive Data was last revised on 2017. Lymphocyte pct 24.6 % [facility] Comment: Interpretive Data Percent cell count reference ranges are not reported, since discordance with absolute values may lead to misinterpretation of CBC data. Current Interpretive Data was last revised on 2017. Monocyte pct 9.9 % [facility] Comment: Interpretive Data Percent cell count reference ranges are not reported, since discordance with absolute values may lead to misinterpretation of CBC data. Current Interpretive Data was last revised on 2017. Eosinophil pct 4.1 % [facility] Comment: Interpretive Data Percent cell count reference ranges are not reported, since discordance with absolute values may lead to misinterpretation of CBC data. Current Interpretive Data was last revised on 2017. Basophil pct 1.2 % [facility] Comment: Interpretive Data Percent cell count reference ranges are not reported, since discordance with absolute values may lead to misinterpretation of CBC data. Current Interpretive Data was last revised on 2017. Blood specimen (specimen) 02/23/2019 5:18 AM CDT 02/23/2019 5:50 AM CDT Carlos Rojo MD LAB BLOOD ORDERABLE S Final Result Performing Organization Address [facility] Co de Phone Number [facility] [address] [address] * (ABNORMAL) CBC with auto differential (02/23/2019 5:18 AM CDT) Pathologist [facility] WBC 3.4(L) 3.8 - 9.9 K/cumm [facility] Hgb 9.8(L) 13.0 - 17.5 g/dL [facility] Hct 29.9(L) 38.9 - 50.3 % [facility] Plt 80(L) 150 - 400 K/cumm [facility] MPV 10.7 9.1 - 12.3 fL [facility] RBC 2.96(L) 4.30 - 5.80 M/cumm [facility] MCV 101.0(H) 81.3 - 96.4 fL [facility] MCH 33.1 27.1 - 33.3 pg [facility] MCHC 32.8 32.3 - 35.7 g/dL [facility] RDW CV 14.0 11.1 - 14.9 % [facility] RDW SD 51.8(H) 35.7 - 48.1 fL [facility] NRBC abs 0.00 0.00 - 0.01 K/cumm [facility] Blood specimen (specimen) 02/23/2019 5:18 AM CDT 02/23/2019 5:50 AM CDT Carlos Rojo MD LAB BLOOD ORDERABLE S Final Result Performing Organization Address [facility]/ZIP Co de Phone Number [facility] [address] [address] * Phosphorus (02/23/2019 5:18 AM CDT) Pathologist [facility] Phosphorus, pl 3.7 2.3 - 4.5 mg/dL [facility] Blood specimen (specimen) 02/23/2019 5:18 AM CDT 02/23/2019 5:49 AM CDT Carlos Rojo MD LAB BLOOD ORDERABLE S Final Result Performing Organization Address [facility] Co de Phone Number [address] [address] * Magnesium (02/23/2019 5:18 AM CDT) [facility] Magnesium 1.8 1.4 - 2.5 mg/dL [facility] Blood specimen (specimen) 02/23/2019 5:18 AM CDT 02/23/2019 5:49 AM CDT Carlos Rojo MD LAB BLOOD ORDERABLE S Final Result Performing Organization Address [facility] de Phone Number [address] [address] * (ABNORMAL) Basic metabolic panel (02/23/2019 5:18 AM CDT) [facility] Sodium 140 135 - 145 mmol/L [facility] Potassium, pl 3.7 3.3 - 4.9 mmol/L [facility] Chloride 105 97 - 110 mmol/L [facility] CO2 29 22 - 32 mmol/L [facility] Anion gap 6 2 - 15 mmol/L [facility] BUN 8 8 - 25 mg/dL [facility] Creatinine 0.79(L) 0.80 - 1.30 mg/dL [facility] Glucose 112 70 - 199 mg/dL [facility] Comment: Interpretive Data Fasting glucose [...] 2017. Calcium 8.5 8.5 - 10.3 mg/dL [facility] Blood specimen (specimen) 02/23/2019 5:18 AM CDT 02/23/2019 5:49 AM CDT us Carlos Rjoo MD LAB BLOOD ORDERABLE S Final Result [facility] [address] [place] [address] * Differential, auto (02/22/2019 5:30 PM CDT) Neutrophil abs 1.7 1.7 - 6.5 K/cumm [facility] Imm gran abs 0.0 0.0 - 0.1 K/cumm [facility] Lymphocyte abs 0.9 0.8 - 3.3 K/cumm [facility] Monocyte abs 0.4 0.2 - 0.8 K/cumm [facility] Eosinophil abs 0.1 0.0 - 0.5 K/cumm [facility] Basophil abs 0.0 0.0 - 0.1 K/cumm [facility] Neutrophil pct 55.2 % [facility] Comment: Interpretive Data Percent cell count reference ranges are not reported, since discordance with absolute values may lead to misinterpretation of CBC data. Current Interpretive Data was last revised on 2017. Imm gran pct 0.3 % [facility] Comment: Interpretive Data Percent cell count reference ranges are not reported, since discordance with absolute values may lead to misinterpretation of CBC data. Current Interpretive Data was last revised on 2017. Lymphocyte pct 27.5 % [facility] Comment: Interpretive Data Percent cell count reference ranges are not reported, since discordance with absolute values may lead to misinterpretation of CBC data. Current Interpretive Data was last revised on 2017. Monocyte pct 11.5 % [facility] Comment: Interpretive Data Percent cell count reference ranges are not reported, since discordance with absolute values may lead to misinterpretation of CBC data. Current Interpretive Data was last revised on 2017. Eosinophil pct 4.5 % [facility] Comment: Interpretive Data Percent cell count reference ranges are not reported, since discordance with absolute values may lead to misinterpretation of CBC data. Current Interpretive Data was last revised on 2017. Basophil pct 1.0 % [facility] Comment: Interpretive Data Percent cell count reference ranges are not reported, since discordance with absolute values may lead to misinterpretation of CBC data. Current Interpretive Data was last revised on 2017. Blood specimen (specimen) 02/22/2019 5:30 PM CDT 02/22/2019 5:43 PM CDT Carlos Rojo MD LAB BLOOD ORDERABLE S Final Result [facility] [address] [place] [address] * (ABNORMAL) CBC with auto differential (02/22/2019 5:30 PM CDT) WBC 3.1(L) 3.8 - 9.9 K/cumm [facility] Hgb 9.4(L) 13.0 - 17.5 g/dL [facility] Hct 28.5(L) 38.9 - 50.3 % [facility] Plt 52(L) 150 - 400 K/cumm [facility] MPV 11.6 9.1 - 12.3 fL [facility] RBC 2.84(L) 4.30 - 5.80 M/cumm [facility] MCV 100.4(H) 81.3 - 96.4 fL [facility] MCH 33.1 27.1 - 33.3 pg [facility] MCHC 33.0 32.3 - 35.7 g/dL [facility] RDW CV 14.2 11.1 - 14.9 % [facility] RDW SD 52.3(H) 35.7 - 48.1 fL [facility] NRBC abs 0.00 0.00 - 0.01 K/cumm [facility] Blood specimen (specimen) 02/22/2019 5:30 PM CDT 02/22/2019 5:43 PM CDT Carlos Rojo MD LAB BLOOD ORDERABLE S Final Result Performing Organization Address [facility] de Phone Number [facility] [address] [place] [address] * Blood culture Blood (02/22/2019 12:42 PM CDT) Report Final Report: No growth [facility] Blood specimen (specimen) 02/22/2019 12:42 PM CDT [...] organism identification may be performed using the [employer] Gram-Positive Blood Culture Assay. This assay detects microbial DNA in positive blood culture broth via hybridization of target DNA to capture oligonucleotides on a microarray. This assay has been cleared by the [place] Food and Drug Administration and its performance characteristics have been verified by the [facility] Microbiology Laboratory. 5. For questions about this culture, contact the Microbiology Laboratory at [phone]. Interpretive data was last revised on 2018. Carlos Rojo MD LAB MICROBIOLOGY - GENERAL ORDERABLES Final Result Performing Organization Address City/[facility] Co de Phone [place] [address] * Blood culture Blood (02/22/2019 12:42 PM [...] organism identification may be performed using the [employer] Gram-Positive Blood Culture Assay. This assay detects microbial DNA in positive blood culture broth via hybridization of target DNA to capture oligonucleotides on a microarray. This assay has been cleared by the [place] Food and Drug Administration and its performance characteristics have been verified by the [facility] Microbiology Laboratory. 5. For questions about this culture, contact the Microbiology Laboratory at [phone]. Interpretive data was last revised on 2018. Carlos Rojo MD LAB MICROBIOLOGY - GENERAL ORDERABLES Final Result Performing Organization Address [facility] Co de Phone Number [place] [address] * Hepatitis B surface antibody (immune status) [...] PM CDT Carlos Rojo MD LAB MICROBI [facility] - GENERAL ORDERABLES Edited Result - Final [facility] [address] [place] [address] * TRANSTHORACIC ECHO (TTE) COMPLETE W DOPPLER/CF WO CONTRAST (02/22/2019 11:57 AM CDT) Anatomical Region Laterality Modality Ultrasound 02/22/2019 11:1 5 AM CDT Narrative 02/22/2019 12:10 PM CDT Patient name: Chester Dubose Date of test: 02/22/2019 Type of test: TTE w/Doppler [facility] #: [id number] Date of : 1970 (M) Blind Cleaner: Beatriz Plata RDCS Referring Physician: CARLOS ROJO MD Contrast Agent: Contrast Administered by: Supervised/Interpreted by: Montrell Michel MD Diagnosis: Dyspnea Pre-Op Location: [facility] Reason for test: Pre [...] 2=Hypo 3=Akinetic 4=Dyskin./Aneurysm 0=Not visualized) Parasternal Long Avis:MAS=1 BAS=1 MP=1 BP=1 Parasternal Short Avis:MAS=1 MS=1 IL=1 MP=1 ML=1 MA=1 Apical 4 [...] MD By signing this report, the attending blasting helper certifies that he or she has personally supervised and interpreted the echocardiogram and has reviewed and or edited and agrees with the written comments contained within the report. Procedure Note Montrell Michel III, MD - 02/22/2019 Patient name: Chester Dubose Date of test: 02/22/2019 Type of test: TTE /[facility] #: [id number] Date of : 1970 (M) Blind Cleaner: Beatriz Plata RDCS Referring Physician: CARLOS ROJO MD Contrast Agent: Contrast Administered by: Supervised/Interpreted by: Montrell Michel MD Diagnosis: Dyspnea Pre-Op Location: [facility] Reason for test: Pre [...] 2=Hypo 3=Akinetic 4=Dyskin./Aneurysm 0=Not visualized) Parasternal Long Avis:MAS=1 BAS=1 MP=1 BP=1 Parasternal Short Avis:MAS=1 MS=1 IL=1 MP=1 ML=1 MA=1 Apical 4 [...] MD By signing this report, the attending blasting helper certifies that he or she has personally supervised and interpreted the echocardiogram and has reviewed and or edited and agrees with the written comments contained within the report. Carlso Rojo MD CV ECHO PROCEDURES Final Result [...] Basophil abs 0.0 0.0 - 0.1 K/cumm [facility] Neutrophil pct 57.7 % [facility] Comment: Interpretive Data Percent cell count reference ranges are not reported, since discordance with absolute values may lead to misinterpretation of CBC data. Current Interpretive Data was last revised on 2017. Imm gran pct 0.0 % [facility] Comment: Interpretive Data Percent cell count reference ranges are not reported, since discordance with absolute values may lead to misinterpretation of CBC data. Current Interpretive Data was last revised on 2017. Lymphocyte pct 24.6 % [facility] Comment: Interpretive Data Percent cell count reference ranges are not reported, since discordance with absolute values may lead to misinterpretation of CBC data. Current Interpretive Data was last revised on 2017. Monocyte pct 12.1 % [facility] Comment: Interpretive Data Percent cell count reference ranges are not reported, since discordance with absolute values may lead to misinterpretation of CBC data. Current Interpretive Data was last revised on 2017. Eosinophil pct 4.4 % [facility] Comment: Interpretive Data Percent cell count reference ranges are not reported, since discordance with absolute values may lead to misinterpretation of CBC data. Current Interpretive Data was last revised on 2017. Basophil pct 1.2 % [facility] Comment: Interpretive Data Percent cell count reference ranges are not reported, since discordance with absolute values may lead to misinterpretation of CBC data. Current Interpretive Data was last revised on 2017. Blood specimen (specimen) 02/22/2019 6:46 AM CDT 02/22/2019 6:54 AM CDT us Carlos Rojo MD LAB BLOOD ORDERABLE S Final Result [facility] [address] [place] [address] * (ABNORMAL) CBC with auto differential (02/22/2019 6:46 AM CDT) WBC 3.2(L) 3.8 - 9.9 K/cumm [facility] Hgb 9.1(L) 13.0 - 17.5 g/dL [facility] Hct 27.4(L) 38.9 - 50.3 % [facility] Plt 67(L) 150 - 400 K/cumm [facility] MPV 12.0 9.1 - 12.3 fL [facility] RBC 2.71(L) 4.30 - 5.80 M/cumm [facility] MCV 101.1(H) 81.3 - 96.4 fL [facility] MCH 33.6(H) 27.1 - 33.3 pg [facility] MCHC 33.2 32.3 - 35.7 g/dL [facility] RDW CV 14.6 11.1 - 14.9 % [facility] RDW SD 53.2(H) 35.7 - 48.1 fL [facility] NRBC abs 0.00 0.00 - 0.01 K/cumm [facility] Blood specimen (specimen) 02/22/2019 6:46 AM CDT 02/22/2019 6:54 AM CDT us Carlos Rojo MD LAB BLOOD ORDERABLE S Final Result [facility] [address] [place] [address] * (ABNORMAL) Basic metabolic panel (02/21/2019 11:12 PM CDT) Sodium 140 135 - 145 mmol/L [facility] Potassium, pl 3.9 3.3 - 4.9 mmol/L [facility] Comment:Hemolyzed; (++); pot assium value may be falsely elevated by as much as 0.3 - 0.5 mmol/L. Suggest redraw and reanalysis. Chloride 104 97 - 110 mmol/L [facility] CO2 26 22 - 32 mmol/L [facility] Anion gap 10 2 - 15 mmol/L [facility] BUN 13 8 - 25 mg/dL [facility] Creatinine 0.70(L) 0.80 - 1.30 mg/dL [facility] Glucose 115 70 - 199 mg/dL [facility] Comment: Interpretive Data Fasting glucose [...] 2017. Calcium 8.3(L) 8.5 - 10.3 mg/dL [facility] Blood specimen (specimen) 02/21/2019 11:12 PM CDT 02/21/2019 11:34 PM CDT us Carlos Rojo MD LAB BLOOD ORDERABLE S Final Result [facility] [address] [place] [address] * (ABNORMAL) CBC without differential (02/21/2019 11:12 PM CDT) WBC 3.4(L) 3.8 - 9.9 K/cumm [facility] Hgb 9.3(L) 13.0 - 17.5 g/dL [facility] Hct 28.4(L) 38.9 - 50.3 % [facility] Plt 70(L) 150 - 400 K/cumm [facility] MPV 10.9 9.1 - 12.3 fL [facility] RBC 2.77(L) 4.30 - 5.80 M/cumm [facility] MCV 102.5(H) 81.3 - 96.4 fL [facility] MCH 33.6(H) 27.1 - 33.3 pg [facility] MCHC 32.7 32.3 - 35.7 g/dL [facility] RDW CV 14.7 11.1 - 14.9 % [facility] RDW SD 55.3(H) 35.7 - 48.1 fL [facility] NRBC abs 0.00 0.00 - 0.01 K/cumm [facility] Blood specimen (specimen) 02/21/2019 11:12 PM CDT 02/21/2019 11:37 PM CDT Carlos Rojo MD LAB BLOOD ORDERABLE S Final Result Performing Organization Address [facility] Co de Phone Number [address] [address] * (ABNORMAL) CBC without differential (02/21/2019 5:51 PM CDT) WBC 4.1 3.8 - 9.9 K/cumm [facility] Hgb 9.7(L) 13.0 - 17.5 g/dL [facility] Hct 30.2(L) 38.9 - 50.3 % [facility] Plt 64(L) 150 - 400 K/cumm [facility] MPV 10.1 9.1 - 12.3 fL [facility] RBC 2.99(L) 4.30 - 5.80 M/cumm [facility] MCV 101.0(H) 81.3 - 96.4 fL [facility] MCH 32.4 27.1 - 33.3 pg [facility] MCHC 32.1(L) 32.3 - 35.7 g/dL [facility] RDW CV 15.0(H) 11.1 - 14.9 % [facility] RDW SD 55.7(H) 35.7 - 48.1 fL [facility] NRBC abs 0.00 0.00 - 0.01 K/cumm [facility] Blood specimen (specimen) 02/21/2019 5:51 PM CDT 02/21/2019 6:08 PM CDT Carlos Rojo MD LAB BLOOD ORDERABLE S Final Result Performing Organization Address [facility]/ZIP Co de Phone Number [facility] [address] [place] [address] * ECG 12 lead (02/21/2019 3:34 PM CDT) Ventricular Rate EKG/Min 103 BPM [facility] Atrial Rate 103 BPM [facility] UT-Interval (MSEC) 146 ms [facility] QRS-Interval (MSEC) 78 ms [facility] QT-Interval (MSEC) 394 ms [facility] QTc 516 ms [facility] P Avis 20 degrees [facility] R Avis 17 degrees [facility] T Avis 31 degrees [facility] Diagnosis Sinus tachycardia Possible Left atrial enlargement Borderline ECG When compared with ECG of 21-FEB-2019 05:51, (unconfirmed) Premature ventricular complexes are no longer Present Confirmed by LEA MATHIS M.D ([id number]) on 02/24/2019 11:15:16 AM [facility] 02/21/2019 3:34 PM CDT 02/24/2019 11:15 AM CDT us Carlos Rojo MD ECG ORDERABLES Fin al Result Performing Organization Address [facility] Co de Phone Number [facility] * Opiates Confirmation, Urine (02/21/2019 2:58 PM CDT) Pathologist [facility] Codeine Conf, Ur Does Not Confirm CutOff 50 ng/mL [facility] 6- Acetylmorphine Conf, Ur Does Not Confirm CutOff 10 ng/mL [facility] Oxycodone Conf, Ur Does Not Confirm CutOff 50 ng/mL [facility] Hydrocodone Conf, Ur Does Not Confirm CutOff 50 ng/mL [facility] Morphine Conf, Ur Confirmed Positive CutOff 50 ng/mL [facility] Hydromorphone Conf, Ur Does Not Confirm CutOff 50 ng/mL [facility] Oxymorphone Conf, Ur Does Not Confirm CutOff 50 ng/mL [facility] Urine 02/21/2019 2:58 PM CDT 02/21/2019 4:26 PM CDT Carlos Rojo MD LAB URINE ORDERABLE S Final Result Performing Organization Address [facility] Co de Phone Number [facility] [address] [place] [address] * (ABNORMAL) Drugs of Abuse Screen, Urine with Reflex Confirmation (02/21/2019 2:58 PM CDT) [facility] Amphetamine, ur Not Detected CutOff 500ng/mL [facility] Comment: Interpretive Data - Amphetamines: ??Samples containing greater than 500 ng/mL d-methamphetamine ??or other cross-reacting amphetamine compounds are reported as positive. ??Amphetamine immunoassays are subject to significant false positive rates due to cross-reactivity of non-amphetamine drugs. Current Interpretive Data was last reviewed 2018. Barbiturates, ur Not Detected CutOff 200ng/mL [facility] Comment: Interpretive Data - Barbiturates: ??Samples containing greater than 200 ng/mL secobarbital or other cross-reacting barbiturate compounds are reported as positive. ??False positive and false negative results are possible. Current Interpretive Data was last reviewed 2018. Benzodiazepines, ur Not Detected CutOff 100ng/mL [facility] Comment: Interpretive Data - Benzodiazepines: ??Samples containing greater than 100 ng/mL nordiazepam or other cross-reacting compounds are reported as positive. ?? False positive and false negative results are possible. ?? Current Interpretive Data was last reviewed 2018. Cannabinoids, ur Detected(A) CutOff 50 ng/[facility] Comment: Interpretive Data - Cannabinoids: ??Samples containing greater than 50 ng/mL delta-9 THC -COOH or other cross-reacting compounds are reported as positive. ??False positive and false negative results are possible. ?? Current Interpretive Data was last reviewed 2018. Cocaine, ur Not Detected CutOff 150ng/mL [facility] Comment: Interpretive Data - Cocaine: ??Samples containing greater than 150 ng/mL benzoylecgonine or other cross-reacting compounds are reported as positive. False positive and false negative results are possible. Current Interpretive Data was last reviewed 2018. Fentanyl, Ur Not Detected Cutoff 1 ng/mL [facility] Comment: Interpretive Data - Fentanyls: ??Samples containing greater than 1 ng/mL fentanyl or other cross-reacting fentanyl compounds are reported as detected. ??False positive and false negative results are possible. Current Interpretive Data was last reviewed 2019. Methadone, ur Not Detected CutOff 300ng/mL [facility] Comment: Interpretive Data - Methadone: ??Samples containing greater than 300 ng/mL d,l-methadone or other cross-reacting compounds are reported as positive. ??False positive and false negative results are possible. Current Interpretive Data was last reviewed 2018. Opiates, ur Detected(A) CutOff 300ng/mL [facility] Comment: Interpretive Data - Opiates: ??Samples containing greater than 300 ng/mL morphine or other cross-reacting compounds are reported as positive. ??False positive and false negative results are possible. Current Interpretive Data was last reviewed 2018. Oxycodone, ur Not Detected CutOff 100ng/mL [facility] Comment: Interpretive Data - Oxycodone: ??Samples containing greater than 100 ng/mL oxycodone or other cross-reacting compounds are reported as positive. ??False positive and false negative results are possible. ?? Current Interpretive Data was last reviewed 2018. Phencyclidine, ur Not Detected CutOff 25 ng/mL [facility] Comment: Interpretive Data - Phencyclidine: ??Samples containing greater than 25 ng/mL phencyclidine or other cross-reacting compounds are reported as positive. ??False positive and false negative results are possible. ?? Current Interpretive Data was last reviewed 2018. Urine Creatinine 94 mg/dL [facility] Comment: Interpretive Data Urine Creatinine: < 10 mg/dL is extremely dilute = or > 10 but < 20 mg/dL is dilute = or > 20 mg/dL is normal Current Interpretive Data was last revised on 2017. Urine 02/21/2019 2:58 PM CDT 02/21/2019 2:58 PM CDT Narrative [facility] - 02/21/2019 5:21 PM CDT Drug of Abuse screening is performed by immunoassay for medical purposes only. ??This is not to be used for Pain Management purposes. ??If Detected, confirmation testing will be performed for Amphetamines, Cocaine, Methadone, Opiates, Oxycodone or Phencyclidine. Carlos Rojo MD LAB URINE ORDERABLE S Final Result [facility] [address] [place] [address] * (ABNORMAL) Urinalysis, microscopic only (02/21/2019 2:58 PM CDT) WBC, ur 6-10(A) 0 - 5 /HPF [facility] RBC, ur 0-2 0 - 2 /HPF [facility] Epithelial cells, squamous, ur 1-5 0 - 5 /HPF [facility] Epithelial cells, renal, ur 1-5(A) 0 - 0 /HPF [facility] Bacteria, ur Trace(A) [facility] Mucous, ur Present(A) [facility] Urine 02/21/2019 2:58 PM CDT 02/21/2019 3:13 PM CDT Carlos Rojo MD LAB URINE ORDERABLE S Final Result Performing Organization Address [facility] de Phone Number KENNY RUIZ [address] [place] [address] * (ABNORMAL) Urinalysis reflex to microscopic and culture Urine (02/21/2019 2:58 PM CDT) Color, ur Yellow Yellow [facility] Clarity, ur Cloudy(A) Clear [facility] Specific gravity, ur 1.020 1.010 - 1.025 [facility] pH, urine 6 [facility] Protein, ur ql Negative Negative [facility] Glucose, ur ql Negative Negative [facility] Ketones, ur Trace Negative [facility] Bilirubin, ur Negative Negative [facility] Blood, ur Negative Negative [facility] Urobilinogen, ur <2.0 <2.0 mg/dL [facility] Nitrite, ur Negative Negative [facility] Leukocyte esterase, ur 1+(A) Negative [facility] Urine 02/21/2019 2:58 PM CDT 02/21/2019 3:13 PM CDT Narrative [facility] - 02/21/2019 3:32 PM CDT ?? Urine pH is affected by diet, medications, systemic acid-base disturbances, and renal tubular function. ??pH may affect urinary stone formation. ??For example, urine pH below 6.0 may help reduce the tendency for calcium phosphate stones and pH greater than 6.0 may reduce the tendency for uric acid stone formation. Source: [employer]. Last revised 06-28-2017 Urine pH is affected by diet, medications, systemic acid-base disturbances, and renal tubular function. ??pH may affect urinary stone formation. ??For example, urine pH below 6.0 may help reduce the tendency for calcium phosphate stones and pH greater than 6.0 may reduce the tendency for uric acid stone formation. Source: [employer]. Last revised 06-28-2017 Carlos Rojo MD LAB MICROBIOLOGY - GENERAL ORDERABLES Final Result Performing Organization Address [facility]/State/[facility] Co de Phone Number [facility] [address] [place] [address] * (ABNORMAL) Protime-INR (02/21/2019 12:55 PM CDT) Pathologist [facility] PT 17.0(H) 8.6 - 13.[address] [facility] [facility] INR 1.56(H) 0.80 - 1.20 [facility] Comment: Interpretive Data Inpatient therapeutic ranges* Atrial fibrillation ?2.0-3.0 INR Venous thrombo-embolism ?2.0-3.0 INR Bioprosthetic heart valve ?* Mechanical heart valve, bileaflet or tilting disk,aortic position ? 2.0-3.0 INR All other,or bileaflet or tilting disk, in mitral position ? 2.5-3.5 INR *See the pharmacy resource directory (PHRED) for an updated copy of the Tool Book at http://[facility] [email or web address] Current Interpretive Data was last revised 2011. Blood specimen (specimen) 02/21/2019 12:55 PM CDT 02/21/2019 1:03 PM CDT Carlos Rojo MD LAB BLOOD ORDERABLE S Final Result Performing Organization Address [facility] Co de Phone Number [facility] [address] [address] * (ABNORMAL) CBC without differential (02/21/2019 11:48 AM CDT) WBC 4.2 3.8 - 9.9 K/cumm [facility] Hgb 9.5(L) 13.0 - 17.5 g/dL [facility] Hct 29.1(L) 38.9 - 50.3 % [facility] Plt 78(L) 150 - 400 K/cumm [facility] MPV 11.1 9.1 - 12.3 fL [facility] RBC 2.88(L) 4.30 - 5.80 M/cumm [facility] MCV 101.0(H) 81.3 - 96.4 fL [facility] MCH 33.0 27.1 - 33.3 pg [facility] MCHC 32.6 32.3 - 35.7 g/dL [facility] RDW CV 15.1(H) 11.1 - 14.9 % [facility] RDW SD 56.9(H) 35.7 - 48.1 fL [facility] NRBC abs 0.00 0.00 - 0.01 K/cumm [facility] Blood specimen (specimen) 02/21/2019 11:48 AM CDT 02/21/2019 12:06 PM CDT Carlos Rojo MD LAB BLOOD ORDERABLE S Final Result Performing Organization Address [facility]/ZIP Co de Phone Number KENNY [address] [address] * X-ray chest 1 view (Portable) (02/21/2019 [...] Ammonia 115(H) 5 - 50 mcmol/L [facility] Comment:Hemolyzed; result ma y be falsely elevated. Blood specimen (specimen) 02/21/2019 9:41 AM CDT 02/21/2019 10:07 AM CDT us Carlos Rojo MD LAB BLOOD ORDERABLE S Final Result [facility] [address] [place] [address] * Lipase (02/21/2019 9:41 AM CDT) Lipase 37 10 - 99 Units/L [facility] Blood specimen (specimen) 02/21/2019 9:41 AM CDT 02/21/2019 10:07 AM CDT us Carlos Rojo MD LAB BLOOD ORDERABLE S Final Result Performing Organization Address [facility] de Phone Number [address] [address] * Check Sample (02/21/2019 9:41 AM CDT) ABO Rh O Positive [facility] HCLL OTHER 02/21/2019 9:41 AM CDT 02/21/2019 10:14 AM CDT us Carlos Rojo MD LAB BLOOD ORDERABLE S Final Result Performing Organization Address [facility] Phone Number [address] [address] * US Liver W Complete Doppler (C) [...] (02/21/2019 6:28 AM CDT) Xiang, indirect Negative [facility] ABO Rh O Positive [facility] Blood specimen (specimen) 02/21/2019 6:28 AM CDT 02/21/2019 6:41 AM CDT Narrative KENNY RUIZ - 02/21/2019 7:49 AM CDT Has the patient had Daratumumab (Darzalex) in the past 6 months?->Unknown Carlos Rojo MD LAB BLOOD BANK TEST ORDERABLES Final Result KENNY RUIZ [address] [place] [address] * Blood culture Blood (02/21/2019 6:28 AM [...] organism identification may be performed using the [employer]comigene Gram-Positive Blood Culture Assay. This assay detects microbial DNA in positive blood culture broth via hybridization of target DNA to capture oligonucleotides on a microarray. This assay has been cleared by the [place] Food and Drug Administration and its performance characteristics have been verified by the [facility] Microbiology Laboratory. 5. For questions about this culture, contact the Microbiology Laboratory at [phone]. Interpretive data was last revised on 2018. Carlos Rojo MD LAB MICROBIOLOGY - GENERAL ORDERABLES Final Result [facility] [address] [place] [address] * (ABNORMAL) Blood culture Blood (02/21/2019 6:28 AM CDT) [facility] Direct Specimen Exam Rapid Molecular Analysis: Staphylococcus species detected by the Verigene Blood Culture Nucleic Acid Test. This is most suggestive of a coagulase negative Staphylococcus species. Please refer to final culture-based result for confirmation. This test does not exclude the possibility of a mixed bacterial infection. Notification of: Staphylococcus species ??called to and read back by: DR. TREV RUIZ [phone] on 02/22/2019 07:11:40 by: JOSE MONTE MLS [facility] Direct Specimen Exam Stain: Gram Positive Cocci in clusters Notification of: Gram Positive Cocci in clusters called to and read back by: DR. MIRNA VALLADARES [phone] on 02/22/2019 03:01:37 by: JOSE MONTE MLS Time to culture positivity (anaerobic media): 17.6 hours [facility] Report Final Report: Coagulase negative Staphylococcus species Isolate of questionable significance. ??If a similar isolate is recovered from a second blood culture collected within 3 days of this culture, both will be evaluated and, if determined to be related, antimicrobial susceptibility testing will be performed. (.) [facility] Organism COAGULASE NEGATIVE STAPHYLOCOCCUS SPECIES [facility] Blood specimen (specimen) 02/21/2019 6:28 [...] organism identification may be performed using the [employer] Gram-Positive Blood Culture Assay. This assay detects microbial DNA in positive blood culture broth via hybridization of target DNA to capture oligonucleotides on a microarray. This assay has been cleared by the [place] Food and Drug Administration and its performance characteristics have been verified by the [facility] Microbiology Laboratory. 5. For questions about this culture, contact the Microbiology Laboratory at [phone]. Interpretive data was last revised on 2018. Carlos Rojo MD LAB MICROBIOLOGY - GENERAL ORDERABLES Final Result [facility] [address] [place] [address] * Differential, auto (02/21/2019 6:04 AM CDT) Neutrophil abs 2.8 1.7 - 6.5 K/cumm [facility] Imm gran abs 0.0 0.0 - 0.1 K/cumm [facility] Lymphocyte abs 1.1 0.8 - 3.3 K/cumm [facility] Monocyte abs 0.7 0.2 - 0.8 K/cumm [facility] Eosinophil abs 0.0 0.0 - 0.5 K/cumm [facility] Basophil abs 0.0 0.0 - 0.1 K/cumm [facility] Neutrophil pct 59.2 % [facility] Comment: Interpretive Data Percent cell count reference ranges are not reported, since discordance with absolute values may lead to misinterpretation of CBC data. Current Interpretive Data was last revised on 2017. Imm gran pct 0.2 % [facility] Comment: Interpretive Data Percent cell count reference ranges are not reported, since discordance with absolute values may lead to misinterpretation of CBC data. Current Interpretive Data was last revised on 2017. Lymphocyte pct 23.3 % [facility] Comment: Interpretive Data Percent cell count reference ranges are not reported, since discordance with absolute values may lead to misinterpretation of CBC data. Current Interpretive Data was last revised on 2017. Monocyte pct 15.3 % [facility] Comment: Interpretive Data Percent cell count reference ranges are not reported, since discordance with absolute values may lead to misinterpretation of CBC data. Current Interpretive Data was last revised on 2017. Eosinophil pct 1.0 % [facility] Comment: Interpretive Data Percent cell count reference ranges are not reported, since discordance with absolute values may lead to misinterpretation of CBC data. Current Interpretive Data was last revised on 2017. Basophil pct 1.0 % [facility] Comment: Interpretive Data Percent cell count reference ranges are not reported, since discordance with absolute values may lead to misinterpretation of CBC data. Current Interpretive Data was last revised on 2017. Blood specimen (specimen) 02/21/2019 6:04 AM CDT 02/21/2019 6:20 AM CDT us Carlos Rojo MD LAB BLOOD ORDERABLE S Final Result K[facility] [address] [place] [address] * (ABNORMAL) CBC with auto differential (02/21/2019 6:04 AM CDT) Pathologist [facility] WBC 4.8 3.8 - 9.9 K/cumm [facility] Hgb 10.1(L) 13.0 - 17.5 g/dL [facility] Hct 31.4(L) 38.9 - 50.3 % [facility] Plt 81(L) 150 - 400 K/cumm [facility] MPV 10.7 9.1 - 12.3 fL [facility] RBC 3.05(L) 4.30 - 5.80 M/cumm [facility] MCV 103.0(H) 81.3 - 96.4 fL [facility] MCH 33.1 27.1 - 33.3 pg [facility] MCHC 32.2(L) 32.3 - 35.7 g/dL [facility] RDW CV 15.4(H) 11.1 - 14.9 % [facility] RDW SD 58.4(H) 35.7 - 48.1 fL [facility] NRBC abs 0.00 0.00 - 0.01 K/cumm [facility] Blood specimen (specimen) 02/21/2019 6:04 AM CDT 02/21/2019 6:20 AM CDT Carlos Rojo MD LAB BLOOD ORDERABLE S Final Result Performing Organization Address City/State/[facility] Co de Phone Number [facility] [address] [place] [address] * (ABNORMAL) Protime-INR (02/21/2019 6:04 AM CDT) Pathologist [facility] PT 17.8(H) 8.6 - 13.0 sec [facility] INR 1.63(H) 0.80 - 1.20 [facility] Comment: Interpretive Data Inpatient therapeutic ranges* Atrial fibrillation ?2.0-3.0 INR Venous thrombo-embolism ?2.0-3.0 INR Bioprosthetic heart valve ?* Mechanical heart valve, bileaflet or tilting disk,aortic position ? 2.0-3.0 INR All other,or bileaflet or tilting disk, in mitral position ? 2.5-3.5 INR *See the pharmacy resource directory (PHRED) for an updated copy of the Tool Book at [email or web address] [email or web address] Current Interpretive Data was last revised 2011. Blood specimen (specimen) 02/21/2019 6:04 AM CDT 02/21/2019 6:11 AM CDT Carlos Rojo MD LAB BLOOD ORDERABLE S Final Result Performing Organization Address [facility] de Phone Number [address] [address] * Lactate (02/21/2019 6:04 AM CDT) Lactate 1.5 0.7 - 2.0 mmol/L [facility] Blood specimen (specimen) 02/21/2019 6:04 AM CDT 02/21/2019 6:19 AM CDT Carlos Rojo MD LAB BLOOD ORDERABLE S Final Result Performing Organization Address [facility] de Phone Number [address] [address] * Phosphorus (02/21/2019 6:04 AM CDT) Phosphorus, pl 3.2 2.3 - 4.5 mg/dL [facility] Blood specimen (specimen) 02/21/2019 6:04 AM CDT 02/21/2019 6:19 AM CDT Carlos Rojo MD LAB BLOOD ORDERABLE S Final Result Performing Organization Address City/[facility]/ZIP Co de Phone Number [facility] [address] [place] [address] * Magnesium (02/21/2019 6:04 AM CDT) Pathologist [facility] Magnesium 1.8 1.4 - 2.5 mg/dL [facility] Blood specimen (specimen) 02/21/2019 6:04 AM CDT 02/21/2019 6:19 AM CDT Carlos Rojo MD LAB BLOOD ORDERABLE S Final Result Performing Organization Address [facility] de Phone Number [facility] [address] [place] [address] * (ABNORMAL) Comprehensive metabolic panel (02/21/2019 6:04 AM CDT) [facility] Sodium 145 135 - 145 mmol/L [facility] Potassium, pl 4.9 3.3 - 4.9 mmol/L [facility] Comment:Hemolyzed; (++); pot assium value may be falsely elevated by as much as 0.3 - 0.5 mmol/L. Suggest redraw and reanalysis. Chloride 111(H) 97 - 110 mmol/L [facility] CO2 27 22 - 32 mmol/L [facility] Anion gap 7 2 - 15 mmol/L [facility] BUN 19 8 - 25 mg/dL [facility] Creatinine 0.70(L) 0.80 - 1.30 mg/dL [facility] Glucose 126 70 - 199 mg/dL [facility] Comment: Interpretive Data Fasting glucose [...] 2017. Calcium 8.2(L) 8.5 - 10.3 mg/dL [facility] Bilirubin, total 2.4(H) 0.1 - 1.2 mg/dL [facility] Protein, pl 6.9 6.5 - 8.5 g/dL [facility] Albumin 3.0(L) 3.5 - 5.0 g/dL [facility] Alk phos 93 40 - 130 Units/L [facility] ALT 44 7 - 55 Units/L [facility] AST 159(H) 10 - 50 Units/L [facility] Comment:Hemolyzed; result ma y be falsely elevated. Blood specimen (specimen) 02/21/2019 6:04 AM CDT 02/21/2019 6:19 AM CDT Carlos Rojo MD LAB BLOOD ORDERABLE S Final Result Performing Organization Address [facility] Co de Phone Number [facility] [address] [place] [address] * MRSA culture Nasal (02/21/2019 6:04 AM CDT) Report Final Report: Negative [facility] Nasal 02/21/2019 6:04 AM CDT 02/21/2019 6:13 AM CDT Narrative KENNY [facility] - 02/22/2019 7:12 AM CDT Testing performed by [facility] Microbiology Laboratory ([phone]). Carlos Rojo MD LAB MICROBIOLOGY - GENERAL ORDERABLES Final Result Performing Organization Address [facility] Co de Phone Number KENNY [facility] [address] [place] [address] * (ABNORMAL) Hepatitis panel, acute (02/21/2019 5:52 AM CDT) Hep A IgM Nonreactive Nonreactive [facility] Comment: Interpretive Data If test is reported as GRAYZONE, new sample should be drawn in two weeks for testing. Current interpretive data was last revised on 2016. Hep B core IgM Nonreactive Nonreactive [facility] Comment: Interpretive Data If test is reported as GRAYZONE, new sample should be drawn for testing. Current interpretive data was last revised on 2016. Hep C Ab Reactive(A) Nonreactive [facility] Comment: Interpretive Data Positive results should be confirmed by a molecular method. If positive, a second separately collected sample should be submitted for Hepatitis C Virus (HCV) RNA Detection and Quantitation by Real-Time [employer] Agent-PCR (RT-PCR). Current interpretive data was last revised on 2016. HepBsAg Nonreactive Nonreactive [facility] Blood specimen (specimen) 02/21/2019 5:52 AM CDT 02/21/2019 6:40 AM CDT Carlos Rojo MD LAB MICROBI OLOGY - GENERAL ORDERABLES Edited Result - Final KENNY RUIZ [address] [place] [address] documented in this encounter Visit Diagnoses Diagnosis [...] Auto Held - Provider: Automatic Transfer Provider)1020 ([facility] Unhold - Provider: Automatic Transfer [...] (Given - Provider: Radha Gómez RN) 0800 (MAR Hold - Provider: [...] Provider: Radha Gómez RN)2121 (Given - Provider: Isabela Horn RN) 0800 [...] Provider: Radha Gómez, REJI)1752 (Given - Provider: Ehtan Kowalski RN) LORazepam (ATIVAN) tablet 1 mg [...] Transfer Provider - Reason: Patient not available)1020 ([facility] Unhold - Provider: Automatic Transfer Provider)6 (Given - Provider: Gerard Monte RN) sodium chloride 0.9% flush 0.5-20 mL 0.5-20 mL, intra-catheter, As needed, line care, Starting on Sun02/21/19 at 0546, Flush volume based on line type and size. Flush before and after each use. 0800 (AUG Hold - Provider: Automatic Transfer Provider - Reason: Patient not available)1020 ([facility] Unhold - Provider: Automatic Transfer Provider) sodium [...] documented as of this encounter Care Teams Buffet Waiter/Waitress Relationship Specialty Start Date End Date No, Physician PCP - General 02/21/19 03/01/19 documented as of this encounter
--- OUTSIDE RECORDS SUMMARY | 2024-06-27 10:35 | XMS_ITS | Encounter Summary ---
Author Organization [facility] Healthcare Address [address] [place] [address] Care Team Providers Care B2B Appointment Setter Name Role Phone Jayne Bowen MD Primary Care Provider + Encounter Details Date Type Department Care Team (Late st Contact Info) Description 08/14/2019 9:06 AM ENTRY LEVEL ADMINISTRATIVE ASSISTANT - 08/14/2019 11:00 AM ENTRY LEVEL ADMINISTRATIVE ASSISTANT Hospital Encounter [address] [address] Nan Ryan DO [address] [place] [address] [place] [address] Unknown, Notinfile Discharge Disposition: Discharge to home [...] Comments Blood Pressure 134/82 08/14/2019 9:07 AM ENTRY LEVEL ADMINISTRATIVE ASSISTANT Pulse 76 08/14/2019 9:07 AM ENTRY LEVEL ADMINISTRATIVE ASSISTANT Temperature 36.3 ??C (97.4 ??F) 08/14/2019 9:07 AM CS T Respiratory Rate - - Oxygen Saturation 96% 08/14/2019 9:07 AM ENTRY LEVEL ADMINISTRATIVE ASSISTANT Inhaled Oxygen Concentration - - Weight 88.4 kg (194 lb 14.2 oz) 08/14/2019 9:07 AM ENTRY LEVEL ADMINISTRATIVE ASSISTANT Height 182.9 cm (6') 08/14/2019 9:07 AM ENTRY LEVEL ADMINISTRATIVE ASSISTANT Body Mass Index 26.43 08/14/2019 9:07 AM ENTRY LEVEL ADMINISTRATIVE ASSISTANT documented in this encounter Medications at Time [...] 2 OR MORE VIEWS 08/14/2019 12:00 AM ENTRY LEVEL ADMINISTRATIVE ASSISTANT documented in this encounter Results * XR Shoulder Right 2 or More Views (08/14/2019 12:00 AM ENTRY LEVEL ADMINISTRATIVE ASSISTANT) Anatomical Region Laterality Modality Upper Extremities, Shoulder Right Radi ographic Imaging 08/14/2019 10:1 7 AM ENTRY LEVEL ADMINISTRATIVE ASSISTANT Narrative 08/14/2019 10:19 AM ENTRY LEVEL ADMINISTRATIVE ASSISTANT Patient Name: CHESTER BRUMFIELD JR ?Ordering Dr: Nan Ryan DO ?? D.O.B: 1970 ? Exam Date: 08/14/19 ?? 0000 ?? Age: 49 ?Sex: Male ? MR#: [id number] ?? Loc: ? RADIOLOGY REPORT ?? Order #[id number] ?? Radiology ? Shoulder RT 2Vw Min [...] 10:19 AM ?? T: ? Report ID: [id number] ?? Reading Location: ??[id number] ? REPORT ELECTRONICALLY SIGNED IN OTHER VENDOR SYSTEM ?? Resulting Agency Comment P Procedure Note Yuliya Luna MD - 08/14/2019 Patient Name: MARIELYLUCILACHESTERDIRK Chowdhury Dr: Nan Ryan DO D.O.B: 1970 Exam Date: 08/14/19 0000 Age: 49 Sex: Male MR#: [id number] Loc: RADIOLOGY REPORT Order #[id number] Radiology Shoulder RT 2Vw Min (STANDARD) Signed [...] by Yuliya Luna M.D. T: Report ID: [id number] Reading Location: [place] [address] REPORT ELECTRONICALLY SIGNED IN OTHER VENDOR SYSTEM Nan Ryan DO IMG XR PROCEDURES Final Result documented in this encounter Visit Diagnoses Not on filedocumented in this encounter Additional Health Concerns Infection Onset Date Last Indicated Resolved Time 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 Care Teams B2B Appointment Setter Relationship Specialty Start Date End Date Jayne Bowen MD [address] [place] [address] PCP - General 08/14/19 01/06/20 documented as of this encounter
--- OUTSIDE RECORDS SUMMARY | 2024-06-27 10:35 | XMS_ITS | Encounter Summary ---
Author Organization [facility] Healthcare Address [address] [place] [address] Care Team Providers Care Shaving Machine Operator Name Role Phone Jayne Bowen MD Primary Care Provider + Encounter Details Date Type Department Care Team ([facility] st Contact Info) Description 12/19/2019 5:55 PM CDT Lab [address] [address] Social History Tobacco Use Types Packs/Day Years [...] documented as of this encounter Care Teams Shaving Machine Operator Relationship Specialty Start Date End Date Jayne Bowen MD [address] [place] [address] PCP - General 08/14/19 01/06/20 documented as of this encounter
--- OUTSIDE RECORDS SUMMARY | 2024-06-27 10:35 | XMS_ITS | Encounter Summary ---
Author Organization [facility] Healthcare Address [address] [place] [address] Care Team Providers Care Monument Carver Name Role Phone Bianca Chand MD Primary Care Provider Reason for Referral * Diagnostic Imaging (Routine) - Closed Specialty Diagnoses / Procedures Referred By Kileyac t Referred To Contact Diagnoses Primary osteoarthritis involving multiple joints Procedures XR Knee Left 3 Views Cristino Cuenca MD [address] [place] [address] Phone: tel: fax: [address] [phone] Referral ID Status Reason Start Date Expiration Date Visits Re quested Visits Authorized [id number] Closed 04/02/2019 10/11/2020 1 1 * Diagnostic Imaging (Routine) - Closed Specialty Diagnoses / Procedures Referred By Hoang t Referred To Contact Diagnoses Primary osteoarthritis involving multiple joints Procedures XR Shoulder Right 2 or More Views Cristino Cuenca MD [address] [place] [address] Phone: tel: fax: [address] [phone] Referral ID Status Reason Start Date Expiration Date Visits Re quested Visits Authorized [id number] Closed 04/02/2019 10/11/2020 1 1 * Diagnostic Imaging (Routine) - Closed Specialty Diagnoses / Procedures Referred By Hoang leroy Referred To Contact Diagnoses Primary osteoarthritis involving multiple joints Procedures XR Shoulder Left 2 or More Views Cristino Cuenca MD [address] [place] [address] Phone: tel: fax: [address] [phone] Referral ID Status Reason Start Date Expiration Date Visits Re quested Visits Authorized [id number] Closed 04/02/2019 10/11/2020 1 1 * Diagnostic Imaging (Routine) - Closed Specialty Diagnoses / Procedures Referred By Hoang leroy Referred To Contact Diagnoses Primary osteoarthritis involving multiple joints Procedures XR Knee Right 3 Views Cristino Cuenca MD [address] [place] [address] Phone: tel: fax: [address] [phone] Referral ID Status Reason Start Date Expiration Date Visits Re quested Visits Authorized [id number] Closed 04/02/2019 10/11/2020 1 1 Reason for Visit * Diagnostic Imaging (Routine) - Closed Specialty Diagnoses / Procedures Referred By Hoang leroy Referred To Contact Diagnoses Primary osteoarthritis involving multiple joints Procedures XR Knee Right 3 Views Cristino Cuenca MD [address] [place] [address] Phone: tel: fax: [address] [phone] Referral ID Status Reason Start Date Expiration Date Visits Re quested Visits Authorized [id number] Closed 04/02/2019 10/11/2020 1 1 Encounter Details Date Type Department Care Team (Latest Contact Info) Description 04/02/2019 10:18 AM CDT - 04/02/2019 11:59 PM CDT Hospital Encounter [facility] Radiology [address] [place] [address] [place] [address] Dev Hernandez MD [address] [place] [address] Cristino Cuenca MD [address] [facility] [address] [place] [address] Primary osteoarthritis involving multiple joints Discharge Disposition: [...] documented as of this encounter Care Teams Monument Carver Relationship Specialty Start Date End Date Bianca Chand MD [address] [address] PCP - General Internal Medicine 03/02/19 06/02/19 documented as of this encounter
--- OUTSIDE RECORDS SUMMARY | 2024-06-27 10:35 | XMS_ITS | Encounter Summary ---
Author Organization [facility] Healthcare Address [address] [place] [address] Care Team Providers Care Stripper Shovel Operator Name Role Phone Bianca Chand MD Primary Care Provider Reason for Visit * Reason Comments Drug Problem alcohol when wakes, marajuana, cocaine, states would like help with detox Encounter Details Date Type Department Care Team (Late st Contact Info) Description 06/24/2019 1:15 PM MRI SPECIALIST Office Visit [facility] Primary Care Medicine Clinic [address] [facility] [address] [place], [place] [id number] Leslie Reed MD [address] [place] [address] [phone] [place] [address] Bianca Chand MD [address] [place] [address] [address] [place], [place] [id number] Alcohol dependence with withdrawal delirium (CMS/HCC) (Primary [...] Comments Blood Pressure 126/76 06/24/2019 1:46 PM MRI SPECIALIST Pulse 102 06/24/2019 1:46 PM MRI SPECIALIST Temperature 36.8 ??C (98.3 ??F) 06/24/2019 1:46 PM CS T Respiratory Rate 14 06/24/2019 1:46 PM MRI SPECIALIST Oxygen Saturation 97% 06/24/2019 1:46 PM MRI SPECIALIST Inhaled Oxygen Concentration - - Weight 87.5 kg (193 lb) 06/24/2019 1:46 PM MRI SPECIALIST Height - - Body Mass Index 29.35 06/03/2019 2:25 AM MRI SPECIALIST documented in this encounter Progress Notes [...] on phone: None Gets together: None Attends temple service: None Active member of club or organization: None Attends meetings of clubs or organizations: None Relationship status: None ??? Intimate partner violence: Fear of current or ex partner: None Emotionally abused: None Physically abused: None Forced sexual activity: None Other Topics Concern ??? None Social History Narrative B/R in [place], [place] but family moved frequently throughout his [...] Neuro: AAOx2 (not to place, did know [place]), no dysmetria on FNF, mild tremor b/l, [...] today). Already accepted to the [facility] ([phone]) but cannot do acute medical detox which patient will likely need with large alcohol consumption history and past history of DT. -send to ER for admission for medical detox from [facility]TOH -on discharge send patient [facility] ([phone]) Return when discharge from hospital and rehab. Bianca Chand MD Internal Medicine PGY-3 Please assist in scheduling my patient for the following weeks when I am scheduled in clinic: 06/16/2019 to 06/29/2019 08/11/2019 to 07/26/2019 10/06/2019 to 10/19/2019 Cosigned by Aminata Carrion MD at 06/25/2019 12:54 PM MRI SPECIALIST SPECIALIST SPECIALIST SPECIALIST Associated attestation - Aminata Carrion MD - 06/25/2019 12:54 PM MRI SPECIALIST I have seen and examined the patient. I agree with the findings and plan of care as documented in the resident/fellow's note. 49 yo male with alcoholism who presents to clinic for evaluation. Last drink 15 minutes ago, patient appears intoxicated. Only oriented to self, year, and in [facility]. He has a history of Dts and [...] plan of care, instructions given by MD. SPECIALIST documented in this encounter Miscellaneous Notes * Assessment & Plan Note - Bianca Chand MD - 06/24/2019 3:11 PM MRI SPECIALIST Associated Problem(s): 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) Patient presents acutely intoxicated wanting to go to rehab. Already accepted to the [facility]([phone]) but cannot do acute medical detox which patient will likely need with large alcohol consumption history and past history of DT. -send to ER for admission for medical detox from ETOH -on discharge send patient [facility] ([phone]) SPECIALIST documented in this encounter Plan of Treatment Not on file documented as of this encounter Visit Diagnoses Diagnosis Alcohol dependence with withdrawal delirium (HCC)- Primary documented in this encounter Additional Health Concerns Infection Onset Date Last Indicated Resolved Time 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 Care Teams Stripper Shovel Operator Relationship Specialty Start Date End Date Bianca Chand MD PCP - General 06/24/19 08/13/19 documented as of this encounter
--- OUTSIDE RECORDS SUMMARY | 2024-06-27 10:35 | XMS_ITS | Encounter Summary ---
Author Organization [facility] Facility Care Team Providers Care Rn Hemo Dialysis Name Role Phone Bianca Chand MD Primary [...] as of this encounter Care Teams Rn Hemo Dialysis Relationship Specialty Start Date End Date Bianca Chand MD PCP - General 06/24/19 08/13/19 documented as of this encounter
--- OUTSIDE RECORDS SUMMARY | 2024-06-27 10:35 | XMS_ITS | Encounter Summary ---
Author Organization [facility] Healthcare Address [address] [place] [address] Care Team Providers Care Pull Socket Assembler Name Role Phone Bianca Chand MD Primary Care Provider Encounter Details Date Type Department Care Team (Late st Contact Info) Description 03/18/2019 Documentation [facility] Primary Care Medicine Clinic [address] [facility] [address] [place] [address] Bianca Chand MD [address] [facility] [address] [place] [address] Social History Tobacco Use Types [...] documented as of this encounter Care Teams Pull Socket Assembler Relationship Specialty Start Date End Date Bianca Chand MD [address] [address] PCP - General Internal Medicine 03/02/19 06/02/19 documented as of this encounter
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
--- OUTSIDE RECORDS SUMMARY | 2024-06-27 10:35 | XMS_ITS | Encounter Summary ---
Author Organization [facility] Facility Care Team Providers Care Biodiesel Production Technician Name Role Phone Bianca Chand MD [...] documented as of this encounter Care Teams Biodiesel Production Technician Relationship Specialty Start Date End Date Bianca Chand MD PCP - General 06/24/19 08/13/19 documented as of this encounter
--- OUTSIDE RECORDS SUMMARY | 2024-06-27 10:35 | XMS_ITS | Encounter Summary ---
Author Organization [facility] Healthcare Address [address] [place] [address] Care Team Providers Care Systems Manager Name Role Phone Bianca Chand MD Primary Care Provider Encounter Details Date Type Department Care Team (Late st Contact Info) Description 04/02/2019 Orders Only [facility] Primary Care Medicine Clinic [address] [facility] [address] [place] [address] Cristino Cuenca MD [address] [facility] [address] [place] [address] Social History Tobacco Use Types [...] documented as of this encounter Care Teams Systems Manager Relationship Specialty Start Date End Date Bianca Chand MD [address] [facility] [address] [place] [address] PCP - General Internal Medicine 03/02/19 06/02/19 documented as of this encounter
--- OUTSIDE RECORDS SUMMARY | 2024-06-27 10:35 | XMS_ITS | Encounter Summary ---
Author Organization [facility] Healthcare Address [address] [place] [address] Care Team Providers Care Active Directory Administrator Name Role Phone Bianca Chand MD Primary Care Provider Reason for Visit * Reason Onset Date Comments Discuss Test Results 04/02/2019 Encounter Details Date Type Department Care Team (Late Contact Info) Description 04/02/2019 Telephone [facility] Primary Care Medicine Clinic [address] [facility] [address] [place], [place] [id number] Cristino Cuenca MD [address] [facility] [address] [place] [address] Discuss Test Results Social History [...] documented as of this encounter Care Teams Active Directory Administrator Relationship Specialty Start Date End Date Bianca Chand MD [address] [address] PCP - General Internal Medicine 03/02/19 06/02/19 documented as of this encounter
--- OUTSIDE RECORDS SUMMARY | 2024-06-27 10:35 | XMS_ITS | Encounter Summary ---
Author Organization [facility] Healthcare Address [address] [place] [address] Care Team Providers Care Medical Office Rep Name Role Phone Bianca Chand MD Primary Care Provider Encounter Details Date Type Department Care Team (Late st Contact Info) Description 03/03/2019 10:00 AM CDT Lab [facility] [address] [place] [address] [place] [address] Alcoholic cirrhosis of liver with [...] CDT) Cholesterol 116 30 - 199 mg/dL [facility] Comment: Interpretive Data Ages < or = [...] revised on 2018. Triglycerides 48 <=149 mg/dL [facility] Comment: Interpretive Data Ages < or = [...] on 2018. HDL 34(L) >=40 mg/dL [facility] Comment: Interpretive Data Ages < or = [...] on 2018. LDL, calculated 72 <=129 mg/dL [facility] Comment: Interpretive Data Ages < or = [...] revised on 2018. Non-HDL Cholesterol 82 mg/dL [facility] Comment: Interpretive Data Ages < or = [...] last revised on 2018. Chol/HDL ratio 3 [facility] Blood specimen (specimen) 03/03/2019 10:05 AM CDT 03/03/2019 11:02 AM CDT Bianca Chand MD LAB BLOOD ORDERABLES F inal Result Performing Organization Address [facility] de Phone Number [address] [address] * Hepatitis C (HCV) RNA PCR, quantitative (03/03/2019 9:59 AM CDT) HCV RNA result Not Detected [facility] Comment: Interpretive data: The quantifiable range of this assay is 15 IU/mL to 100,000,000 IU/mL (1.18 log IU/mL to 8.00 log IU/mL). Testing was performed by the [employer] AmpliPrep/HARJIT TaqMan HCV Test version 2.0 ([employer] Testing performed at [facility] Current Interpretive Data was last revised on 2015. 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
--- OUTSIDE RECORDS SUMMARY | 2024-06-27 10:35 | XMS_ITS | Encounter Summary ---
Author Organization [facility] Healthcare Address [address] [place] [address] Care Team Providers Care Pedal Assembler Name Role Phone No, Physician Primary Care Provider [phone] Encounter Details Date Type Department Care Team (Late st Contact Info) Description 02/24/2019 8:19 AM CDT Anesthesia Event [facility] [address] [place] [address] Triston Chau MD [address] [facility] [address] [place] [address] Anesthesia Record Procedure Summary Procedure Name Responsible [...] Procedure Summary Date: 02/24/19 Room / Location: [facility] OR POD 5 ROOM 224 / [facility] ENDOSCOPY Anesthesia Start: 818 Anesthesia Stop: 858 [...] Medication protocol when under care of a PAPER DELIVERER Planned anesthesia: MAC Induction: Induction: intravenous. Postoperative Plan: No plan for postoperative opioid use. No postoperative mechanical ventilation intended. Patient's planned disposition post procedure is Floor. Informed Consent: Discussed plan with PAPER DELIVERER. Anesthesia plan and risks discussed with patient. [...] documented as of this encounter Care Teams Pedal Assembler Relationship Specialty Start Date End Date No, Physician PCP - General 02/21/19 03/01/19 documented as of this encounter
--- OUTSIDE RECORDS SUMMARY | 2024-06-27 10:35 | XMS_ITS | Encounter Summary ---
Author Organization [facility] Healthcare Address [address] [place] [address] Care Team Providers Care Steam Shovel Oiler Name Role Phone Bianca Chand MD Primary Care Provider Reason for Visit * Reason Comments Alcohol Problem Encounter Details Date Type Department Care Team (Late Contact Info) Description 06/24/2019 8:32 PM LEVELER - 06/25/2019 11:09 AM LEVELER Emergency [facility] [address] [place] [address] Tarun Ibarra MD [address] [place] [phone] Harvey Mccarthy MD [address] [place] [address] Josep Mackey MD [address] [place] [address] ETOH abuse (Primary Dx); History of hepatitis [...] Comments Blood Pressure 151/89 06/25/2019 11:05 AM LEVELER Pulse 96 06/25/2019 11:05 AM LEVELER Temperature 36.9 ??C (98.4 ??F) 06/25/2019 11:[address] Respiratory Rate 18 06/25/2019 2:30 AM LEVELER Oxygen Saturation 97% 06/25/2019 11:05 AM LEVELER Inhaled Oxygen Concentration - - Weight 87.1 kg (192 lb) 06/24/2019 3:40 PM LEVELER Height 182.9 cm (6') 06/24/2019 3:40 PM LEVELER Body Mass Index 26.04 06/24/2019 3:40 PM LEVELER documented in this encounter Discharge Diagnoses Diagnosis [...] Rosario Carranza NP - 06/25/2019 10:48 AM LEVELER Call [facility] to reserve your bed. Only take the Librium if you are having withdrawal symptoms. Do not take the medication if you are drinking alcohol. Please seek medical attention if you experience worsening chest pain, shortness of breath, fever, seizures LER LER * Attachments The following attachments cannot be sent through Care Everywhere. * Abuse of Alcohol (AfterCare(R) Instructions(ER/ED)) ([place]) documented in this encounter Medications at Time [...] this encounter Progress Notes * Laurence Han, BUSINESS DEVELOPMENT DIRECTOR - 06/25/2019 3:14 AM CST SANTINO was consulted by to assist with placement to substance rehab. Pt is a 49 year old male with history for IVDU, HepC and ETOH abuse. Pt was reported to have a referral to detox program at [place], [place]. ([phone])/[place], [place] ([phone]). The referral is from PCP at [facility]; however, when pt presented there he was reported to be intoxicated and instructed to come to ED. Since pt's arrival he is no longer clinically intoxicated. SANTINO contacted [facility] and spoke to bank operations officercall worker person Tete. SANTINO was informed pt was not a documented pt but SW could submit pt's ED evaluation and treatment course for review for acceptance to the program. SANTINO faxed requested information to Admissions [place]/[phone] and [place]/[phone]. SANTINO had not received responseand at approximately 02:45 SANTINO contacted for update on the status of request for pt's acceptance to program. Pt now being monitored in observation - 8. At time of note SANTINO waits for call from bank operations officercall worker person basilia discuss acceptance of pt. SANTINO intends [...] the locations after 08:00. Laurence Han LCSW [phone] LER LER LER documented in this encounter ED Notes * Lisseth Sy LCSW - 06/25/2019 8:49 AM CST This BUSINESS DEVELOPMENT DIRECTOR received report from previous ED SW shift and is continuing to refer pt to [facility] ([facility] in [facility]). This BUSINESS DEVELOPMENT DIRECTOR called and spoke with Kimberley Zelaya (phone: [phone], fax:[phone]), Andres, whom reported she needs more information on patient re: his reported SI/HI, COPD plan, and confirmation he is medically stable for residential treatment. Lanceellereports she has 40 people on their wait list, but she is trying to expedite pt's referral so he candirectly admit there from here. This BUSINESS DEVELOPMENT DIRECTOR will continue to coordinate referral. 11:06 AM Kimberley Zelaya called this BUSINESS DEVELOPMENT DIRECTOR back and reported [facility] is unable to accept patient today, but could possibly admit him Sunday or Sunday; Kimberley instructed that pt call and get on their waitinglist and then she will expedite him to the top of the list Sunday or Sunday. This BUSINESS DEVELOPMENT DIRECTOR met with pt and gave him Kimberley's instructions. Patient was agreeable to this plan. SANTINO provided pt bus passes for transport home today, per his request. LER LER * Skye Graves MD - 06/24/2019 10:43 [...] too young). Social History Narrative B/R in [place], [place] but family moved frequently throughout his [...] away. By: Aditya Martinez MD Time: 06/24 4912 Comment: Mr. Dubose was referred to the ED this afternoon after he presented to a detox center for alcohol after drinking. He says he last drank at 2pm. He has been through detox before, has a PCP here at [facility]. He also uses meth. No use today. [...] Harvey Mccarthy MD, am taking signout from [facility] (Attending). I have reviewed all pertinent vital signs allergies, and history available in the chart. Summary: 49 y.o. male polysubstance referred from rehab Pending: - rehab Dispo: likely d/c By: Harvey Mccarthy MD ETOH abuse History of hepatitis C Skye Graves MD Resident 06/25/19 0003 Cosigned by Tarun Ibarra MD at 06/30/2019 5:51 PM LEVELER LER LER Associated attestation - Tarun Ibarra MD - 06/30/2019 5:51 PM LEVELER I have seen and examined the patient on 06/24/2019 . I agree with the findings and plan of care as documented in the resident's note. * Ilan Laurent RN - 06/24/2019 8:32 PM CST Bed: ED2-21 Expected date: Expected time: Means of arrival: Ambulance Comments: Ilan Laurent RN 06/24/192031 LER * Nasrin Marcus RN - 06/24/2019 3:41 [...] Patient is calm and cooperative. Denies SI/HI LER documented in this encounter Miscellaneous Notes * ED Observation Provider Note - Maria Del Rosario Carranza NP - 06/25/2019 10:49 AM LEVELER Observation Disposition Physical Exam Vitals signs and [...] Hep C Alcoholic cirrhosis Observation Disposition: discharge LER * ED Re-evaluation Note - Jameson Mccallum MD PhD - 06/25/2019 7:50 AM LEVELER ED Re-evaluation ED Course as of Jun [...] detox before, has a PCP here at [facility]. He also uses meth. No use today. [...] Harvey Mccarthy MD, am taking signout from [facility] (Attending). I have reviewed all pertinent vital [...] to OBS unit Awaiting to hear from [facility] social work involved By: Miroslava Ibarra NP Time: 06/25 0509 Comment: Called [facility], left message. Patient sleeping comfortably By: Nan [...] with withdrawal and placement into rehab Pending: [facility] eval Dispo: Rehab or home if they can't accommodate. By: Josep Mackey MD Time: 06/25 1034 Comment: Per social work, [facility] does not have a bed for patient. Will not have a patient until Sunday or Sunday. By: Maria Del Rosario Carranza NP Time: 06/25 1048 Comment: OK for discharge. Librium Rx given for EtOH withdrawl By: Jameson Mccallum MD PhD Jameson Mccallum MD PhD Resident 06/25/19 1049 LER * ED Observation Provider Note - Maria Del Rosario Carrazna NP - 06/25/2019 7:37 AM LEVELER ED Observation Admission Note Please also see [...] Judgment: Judgment normal. Denies Suicidal/ homicidal ideation. LER LER * ED Re-evaluation Note - Nan Anand MD - 06/24/2019 10:49 PM LEVELER ED Re-evaluation TRANSITION OF CARE: I, Nan [...] detox before, has a PCP here at [facility]. He also uses meth. No use today. [...] Harvey Mccarthy MD, am taking signout from [facility] (Attending). I have reviewed all pertinent vital [...] to OBS unit Awaiting to hear from [facility] social work involved By: Miroslava Ibarra NP Time: 06/25 0509 Comment: Called [facility], left message. Patient sleeping comfortably By: Nan [...] Josep Mackey MD, am taking signout from [facility]. I have reviewed all pertinent vital signs, allergies, and history available in the chart. Summary: 49 y.o. male with ETOH withdrawal, here with withdrawal and placement into rehab Pending: [facility] eval Dispo: Rehab or home if they can't accommodate. By: MD Nan Rothman MD Resident 06/25/19726 LER documented in this encounter Plan of Treatment Not on file documented as of this encounter Procedures Procedure Name Priority Date/Time Associated Diagnosis Comments DIFFERENTIAL AUTO Routine 06/24/2019 6:4 3 PM LEVELER CBC WITH AUTO DIFFERENTIAL Routine 06/24/2019 6:43 PM LEVELER MAGNESIUM STAT 06/24/2019 6:43 PM LEVELER FOLATE STAT 06/24/2019 6:43 PM LEVELER VITAMIN B12 STAT 06/24/2019 6:43 PM LEVELER BASIC METABOLIC PANEL STAT 06/24/2019 6:43 PM LEVELER documented in this encounter Results * Vitamin B12 (06/24/2019 6:43 PM LEVELER) Vitamin B12 797 230 - 1,250 pg/mL [facility] Blood specimen (specimen) 06/24/2019 6:43 PM LEVELER 06/24/2019 6:58 PM LEVELER us Notinfile Unknown LAB BLOOD ORDERABLES Final Res ult [facility] [place] [address] * Folate (06/24/2019 6:43 PM LEVELER) Pathologist [facility] Folic acid 9.7 >=5.0 ng/mL [facility] Blood specimen (specimen) 06/24/2019 6:43 PM LEVELER 06/24/2019 6:58 PM LEVELER us Notinfile Unknown LAB BLOOD ORDERABLES Final Res ult Performing Organization Address [facility] Co de Phone Number [facility] Department [place] [address] * Differential, auto (06/24/2019 6:43 PM LEVELER) [facility] Neutrophil abs 1.9 1.7 - 6.5 K/cumm [facility] Imm gran abs 0.0 0.0 - 0.1 K/cumm [facility] Lymphocyte abs 1.3 0.8 - 3.3 K/cumm [facility] Monocyte abs 0.3 0.2 - 0.8 K/cumm [facility] Eosinophil abs 0.2 0.0 - 0.5 K/cumm [facility] Basophil abs 0.1 0.0 - 0.1 K/cumm [facility] Neutrophil pct 49.9 % [facility] Comment: Interpretive Data Percent cell count reference ranges are not reported, since discordance with absolute values may lead to misinterpretation of CBC data. Current Interpretive Data was last revised on 2017. Imm gran pct 0.3 % [facility] Comment: Interpretive Data Percent cell count reference ranges are not reported, since discordance with absolute values may lead to misinterpretation of CBC data. Current Interpretive Data was last revised on 2017. Lymphocyte pct 34.9 % [facility] Comment: Interpretive Data Percent cell count reference ranges are not reported, since discordance with absolute values may lead to misinterpretation of CBC data. Current Interpretive Data was last revised on 2017. Monocyte pct 8.1 % [facility] Comment: Interpretive Data Percent cell count reference ranges are not reported, since discordance with absolute values may lead to misinterpretation of CBC data. Current Interpretive Data was last revised on 2017. Eosinophil pct 5.2 % [facility] Comment: Interpretive Data Percent cell count reference ranges are not reported, since discordance with absolute values may lead to misinterpretation of CBC data. Current Interpretive Data was last revised on 2017. Basophil pct 1.6 % [facility] Comment: Interpretive Data Percent cell count reference ranges are not reported, since discordance with absolute values may lead to misinterpretation of CBC data. Current Interpretive Data was last revised on 2017. Blood specimen (specimen) 06/24/2019 6:43 PM LEVELER 06/24/2019 6:58 PM LEVELER Nilson Cormier MD LAB BLOOD ORDERA BLES Final Result Performing Organization Address City/[facility]/ZIP Co de Phone Number [facility] Department [place] [address] * Magnesium (06/24/2019 6:43 PM LEVELER) Pathologist [facility] Magnesium 2.0 1.4 - 2.5 mg/dL [facility] Blood specimen (specimen) 06/24/2019 6:43 PM LEVELER 06/24/2019 6:58 PM LEVELER Narrative [facility] - 06/24/2019 7:24 PM LEVELER THE COLLECTION LOCATION IS Nilson Cormier MD LAB BLOOD ORDERA BLES Final Result Performing Organization Address City/[facility]/ZIP Co de Phone Number [facility] [place] [address] * (ABNORMAL) Basic metabolic panel (06/24/2019 6:43 PM LEVELER) Pathologist [facility] Sodium 141 135 - 145 mmol/L [facility] Potassium, pl 3.7 3.3 - 4.9 mmol/L [facility] Chloride 108 97 - 110 mmol/L [facility] CO2 24 22 - 32 mmol/L [facility] Anion gap 9 2 - 15 mmol/L [facility] BUN 5(L) 8 - 25 mg/dL [facility] Creatinine 0.86 0.80 - 1.30 mg/dL [facility] Glucose 111 70 - 199 mg/dL [facility] Comment: Interpretive Data Fasting glucose >/= [...] 2017. Calcium 8.1(L) 8.5 - 10.3 mg/dL [facility] Blood specimen (specimen) 06/24/2019 6:43 PM LEVELER 06/24/2019 6:58 PM LEVELER Narrative [facility] - 06/24/2019 7:24 PM LEVELER THE COLLECTION LOCATION IS Nilson Cormier MD LAB BLOOD ORDERA BLES Final Result [facility] Department [place] [address] * (ABNORMAL) CBC with auto differential (06/24/2019 6:43 PM LEVELER) WBC 3.8 3.8 - 9.9 K/cumm [facility] Hgb 10.4(L) 13.0 - 17.5 g/dL [facility] Hct 33.6(L) 38.9 - 50.3 % [facility] Plt 86(L) 150 - 400 K/cumm [facility] MPV 9.7 9.1 - 12.3 fL [facility] RBC 3.94(L) 4.30 - 5.80 M/cumm [facility] MCV 85.3 81.3 - 96.4 fL [facility] MCH 26.4(L) 27.1 - 33.3 pg [facility] MCHC 31.0(L) 32.3 - 35.7 g/dL [facility] RDW CV 19.9(H) 11.1 - 14.9 % [facility] RDW SD 62.1(H) 35.7 - 48.1 fL [facility] NRBC abs 0.00 0.00 - 0.01 K/cumm [facility] Blood specimen (specimen) 06/24/2019 6:43 PM LEVELER 06/24/2019 6:58 PM LEVELER Narrative [facility] - 06/24/2019 7:09 PM LEVELER THE COLLECTION LOCATION IS Nilson Cormier MD LAB BLOOD ORDERA BLES Final Result Performing Organization Address City/State/[facility] Co de Phone Number [facility] Department [place] [address] documented in this encounter Visit Diagnoses Diagnosis [...] For 1 dose Given 06/25/2019 8:21 AM LEVELER 25 mg diazePAM (VALIUM) tablet 5 mg 5 mg, oral, Once, On Sun06/24/19 at 1821, For 1 dose, Indications: Alcohol Withdrawal SyndromeIndications:Alcohol Withdrawal Syndrome Given 06/24/2019 6:51 PM LEVELER 5 mg folic acid (FOLVITE) tablet 1 mg 1 mg, oral, Once, On Sun06/24/19 at 2322, For 1 dose Given 06/24/2019 11:26 PM LEVELER 1 mg Lactated Ringer's (LR) bolus 1,000 mL 1,000 mL, intravenous, Once, On Sun06/24/19 at 2233, For 1 dose New Bag 06/24/2019 10:48 PM LEVELER 1,000 mL thiamine (VITAMIN B1) tablet 100 mg 100 mg, oral, Once, On Sun06/24/19 at 2258, For 1 dose Given 06/24/2019 11:12 PM LEVELER 100 mg documented in this encounter Discontinued [...] Recently Administered Medications Times are shown in LEVELER. Scheduled Medication Order 06/23/2019 06/24/2019 06/25/2019 [id number] [...] documented as of this encounter Care Teams Steam Shovel Oiler Relationship Specialty Start Date End Date Bianca Chand MD PCP - General 06/24/19 08/13/19 documented as of this encounter
--- OUTSIDE RECORDS SUMMARY | 2024-06-27 10:35 | XMS_ITS | Encounter Summary ---
Author Organization [facility] Healthcare Address [address] [place] [address] Care Team Providers Care Spa Consultant Name Role Phone Bianca Chand MD Primary Care Provider Encounter Details Date Type Department Care Team (Late st Contact Info) Description 03/04/2019 Telephone [facility] [address] [facility] [address] [place] [address] Bianca Chand MD [address] [facility] [address] [place] [address] Social History Tobacco Use Types [...] to discuss this matter. Thank you, Gui [phone] documented in this encounter Plan of Treatment Not on file documented as of this encounter Visit Diagnoses Not on filedocumented in this encounter Additional Health Concerns Infection Onset Date Last Indicated Resolved Time 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 Care Teams Spa Consultant Relationship Specialty Start Date End Date Bianca Chand MD [address] [address] PCP - General Internal Medicine 03/02/19 06/02/19 documented as of this encounter
--- OUTSIDE RECORDS SUMMARY | 2024-06-27 10:36 | XMS_ITS | Encounter Summary ---
Author Organization [facility] Healthcare Address [address] [place] [address] Care Team Providers Care Payroll Bookkeeper Name Role Phone Unavailable Primary Care Provider Unavailabl e Encounter Details Date Type Department Care Team (Latest Contact Info) Description 07/30/2013 2:36 PM TAIL END RIDER Hospital Encounter [facility] Cindy Cintron MD [address] [facility] [address] [place] [address] Chronic hepatitis C (CMS/HCC) (HCC) Social History [...] GENOTYPING BY SEQUENCING Routine 07/30/2013 2:48 PM TAIL END RIDER HIV-1 AND HIV-2 ANTIBODY, RAPID Routine 07/30/2013 2:48 PM TAIL END RIDER HEPATITIS C VIRUS (HCV) RNA, QUALITATIVE, WILLOW Routine 07/30/2013 2:48 PM TAIL END RIDER SMOOTH MUSCLE ANTIBODY, QUALITATIVE Routine 07/30/2013 2:48 PM TAIL END RIDER IRON PROFILE W/ IBC Routine 07/30/2013 2 :48 PM TAIL END RIDER CBC WITH AUTO DIFFERENTIAL Routine 07/30/2013 2:48 PM TAIL END RIDER MASSIEL REFLEX TO QUANTITATIVE Routine 07/30/2013 2:48 PM TAIL END RIDER HEPATITIS PANEL, ACUTE Routine 4 2:48 PM TAIL END RIDER TSH Routine 07/30/2013 2:48 PM TAIL END RIDER T4, FREE Routine 07/30/2013 2:48 PM TAIL END RIDER FERRITIN Routine 07/30/2013 2:48 PM TAIL END RIDER HEPATIC FUNCTION PANEL Routine 4 2:48 PM TAIL END RIDER COMPREHENSIVE METABOLIC PANEL Routine 07/30/2013 2:48 PM TAIL END RIDER DRUGS OF ABUSE SCREEN, URINE WITHOUT CONFIRMATION Routine 07/30/2013 2:37 PM TAIL END RIDER documented in this encounter Results * HIV-1 and HIV-2 antibody, rapid (07/30/2013 2:48 PM TAIL END RIDER) Pathologist [facility] HIV 1/2 Ab NONREACTIVE NONREACTIVE Comment: Note: ??A Non-Reactive result indicates an absence of detectable HIV-1/2 antibodies in the patient. However, it does not rule out recent exposure or past infection with HIV. 07/30/2013 2:48 PM TAIL END RIDER 07/30/2013 3:32 PM TAIL END RIDER us Cindy Douglas MD LAB BLOOD ORDERABLES Jasmin daniel Result [facility] HISTORICAL RESULTS * (ABNORMAL) Smooth muscle antibody, qualitative (07/30/2013 2:48 PM TAIL END RIDER) Smooth Muscle IgG Ab 22(H) 0 - 19 Units Comment: INTERPRETIVE INFORMATION: F-Actin (Smooth Muscle) Antibody, [...] than anti-smooth muscle antibodies. ?? Performed by [employer], ?? [address] [place] [address] ?? [employer], Derick Walters MD, Lab. Director ?? Smooth Muscle Ab Titer 1:40(H) <1:20 08/03/2013 4:18 [facility] HISTORICAL RESULTS Comment: INTERPRETIVE INFORMATION: ??Smooth Muscle Ab, IgG Titer ?Less than 1:20 ........ Negative - No antibody detected. ?1:20 - 1:80 ??.......... Weak Positive - Suggest repeat ?in two to three weeks with fresh ?specimen. ?1:160 or greater ...... Positive - Suggestive of ?autoimmune hepatitis or chronic ?active hepatitis. ?? Performed by [employer], ?? [address] [facility] [address] ?? www[employer], Derick Walters MD, Lab. Director ?? 07/30/2013 2:48 PM TAIL END RIDER 07/30/2013 3:32 PM TAIL END RIDER Result [facility] Cindy Douglas MD LAB BLOOD ORDERABLES Jasmin l Result [facility] HISTORICAL RESULTS * MASSIEL reflex to quantitative (07/30/2013 2:48 PM TAIL END RIDER) MASSIEL Screen None Detected None Detected Comment: [...] and speckled MASSIEL-IFA patterns. ?? Performed by [employer], ?? [address] [facility] [address] ?? www[employer], Derick Walters MD, Lab. Director ?? 07/30/2013 2:48 PM TAIL END RIDER 07/30/2013 3:32 PM TAIL END RIDER Result [facility] Cindy Douglas MD LAB BLOOD ORDERABLES Jasmin l Result [facility] HISTORICAL RESULTS * (ABNORMAL) CBC with auto differential (07/30/2013 2:48 PM TAIL END RIDER) WBC 6.2 4.6 - 10.2 x10 3/ul 07/30/2013 3:38 PM TAIL END RIDER [facility] [employer] HISTORICAL RESULTS RBC 5.07 4.11 - 5.71 x10 6/ul 07/30/2013 3:38 PM TAIL END RIDER [facility] [employer] HISTORICAL RESULTS Hemoglobin 16.2 13.0 - 17.0 g/dl 07/30/2013 3:38 PM TAIL END RIDER [facility] [employer] HISTORICAL RESULTS Hct 46.9 38.2 - 48.5 % 07/30/2013 3:38 PM [facility] [employer] HISTORICAL RESULTS MCV 92.5 80.0 - 97.0 fl 07/30/2013 3:38 PM [facility] [employer] HISTORICAL RESULTS MCH 32.0(H) 27.0 - 31.2 pg 07/30/2013 3:38 PM [facility] [employer] HISTORICAL RESULTS MCHC 34.5 31.8 - 35.4 g/dl 07/30/2013 3:38 PM [facility] [employer] HISTORICAL RESULTS RDW 13.3 11.6 - 14.8 % 07/30/2013 3:38 PM [facility] [employer] HISTORICAL RESULTS Plt Count 227 124 - 400 x10 3/ul 07/30/2013 3:38 PM [facility] [employer] HISTORICAL RESULTS MPV 9.0 7.4 - 10.4 fl 07/30/2013 3:38 PM [facility] Prior Knowledge [facility] HISTORICAL RESULTS Differential Method AUTOMATED DIFF --------- -- 07/30/2013 3:38 PM [facility] [employer] HISTORICAL RESULTS Neut % 32.4(L) 37.0 - 85.0 % 07/30/2013 3:38 PM [facility] [employer] HISTORICAL RESULTS Immature Gran % 0.2 0.0 - 3.0 % 07/30/2013 3:38 PM [facility] [employer] HISTORICAL RESULTS Lymph % 57.6(H) 5.0 - 45.0 % 07/30/2013 3:38 PM [facility] [employer] HISTORICAL RESULTS Lyman % 7.9 3.0 - 15.0 % Eos % 1.1 0.0 - 7.0 % Baso % 0.8 0.0 - 2.0 % ABSOLUTE COUNTS ABSOLUTE COUNTS --------- -- Absolute Neuts (auto) 2.0 1.7 - 8.7 x10 3/ul Immature Gran # 0.0 0.0 - 0.3 x10 3/ul Absolute Lymphs (auto) 3.6 0.2 - 4.6 x10 3/ul Absolute Monos (auto) 0.5 0.1 - 1.5 x10 3/ul Absolute Eos (auto) 0.1 0.0 - 0.7 x10 3/ul Absolute Basos (auto) 0.1 0.0 - 0.2 x10 3/ul 07/30/2013 2:48 PM TAIL END RIDER 07/30/2013 3:32 PM [facility] Cindy Douglas MD LAB BLOOD ORDERABLES Jasmin daniel Result [facility] HISTORICAL RESULTS * (ABNORMAL) Hepatitis C Virus (HCV) RNA, Qualitative, WILLOW (07/30/2013 2:48 PM TAIL END RIDER) [facility] HCV RNA Detected( H) Not Detected Comment: [...] Cellular Tissue-Based Products (HCT/P). ?? Performed by [employer], ?? [facility] [place] [address] ?? www[employer], Derick Walters MD, Lab. Director ?? 07/30/2013 2:48 PM TAIL END RIDER 07/30/2013 3:32 PM TAIL END RIDER Cindy Douglas MD LAB BLOOD ORDERABLES Jasmin l Result [facility] HISTORICAL RESULTS * HCV GENOTYPING BY SEQUENCING (07/30/2013 2:48 PM TAIL END RIDER) HCV genotype 1a or 1b () Comment: Cannot be further subtyped into Type 1a or Type 1b due to ?? high conservation of the 5 untranslated region of the HCV ?? genome. ??In addition, Type 6 virus may be misclassified as ?? Type 1 in some cases. ?? INTERPRETIVE INFORMATION: ??Hepatitis C Genotyping ?? Hepatitis C viral RNA is tested using reverse environmental services supervisor ?? polymerase chain reaction (RT-PCR) to amplify a specific ?? portion of the 5' untranslated region (5' UTR) of the viral ?? genome. The amplified nucleic acid is sequenced ?? bi-directionally using dye-terminator chemistry ([facility]). ?? Sequencing data is compared to a [...] ?? Test developed and characteristics determined by [employer] ?? Laboratories. See Compliance Statement B: [employer] ?? Performed by [employer], ?? [address] [facility] [place] [address] ?? www[employer], Derick Walters MD, Lab. Director ?? 07/30/2013 2:48 PM TAIL END RIDER 07/30/2013 3:32 PM TAIL END RIDER us Cindy Douglas MD LAB BLOOD ORDERABLES Jasmin l Result [facility] HISTORICAL RESULTS * (ABNORMAL) Hepatitis panel, acute (07/30/2013 2:48 PM TAIL END RIDER) HepBsAg NONREACT NONREACTIVE 07/30/2013 5:07 PM TAIL END RIDER [facility] Comment: [employer]aurXP using CHRISTOPHER (chemiluminescent immunoassay) technology. NONREACTIVE: IgM antibodies to Hepatitis B Surface antigen not detected. REACTIVE: IgM antibodies to Hepatitis B Surface antigen detected. Reactive results will be confirmed by neutralization testing. HBsAb (immune status) NONREACT NONREACTIVE 07/30/2013 4:07 PM TAIL END RIDER [facility] [employer] HISTORICAL RESULTS Comment: [employer] CentaurXP using CHRISTOPHER (chemiluminescent immunoassay) technology. NONREACTIVE: IgM antibodies to Hepatitis B Surface antibody not detected. REACTIVE: IgM antibodies to Hepatitis B Surface antibody detected. Hep B core IgM NONREACT NONREACTIVE 4 5:12 PM TAIL END RIDER [facility] [employer] HISTORICAL RESULTS Comment: [employer] CentaurXP using CHRISTOPHER (chemiluminescent immunoassay) technology. NONREACTIVE: IgM antibodies to Hepatitis B Core antigen not detected. EQUIVOCAL: IgM antibodies to Hepatitis B Core antigen may or may not be present. Obtain a ??new specimen and retest. REACTIVE: IgM antibodies to Hepatitis B Core antigen detected. Hep A IgM NONREACT NONREACTIVE 07/30/2013 5:12 PM TAIL END RIDER [facility] [employer] HISTORICAL RESULTS Comment: [employer] CentaurXP using CHRISTOPHER (chemiluminescent immunoassay) technology. NONREACTIVE: IgM antibodies to Hepatitis A not detected. This does not exclude possibility of exposure to Hepatitis A or early acute infection. EQUIVOCAL:IgM antibodies to Hepatitis A may or may not be present. Suggest recollection and retest. REACTIVE: Antibodies to Hepatitis A detected. Hep C Ab REACTIVE(H) NONREACTIVE Comment: [employer]ens Descubre.laaurXP using CHRISTOPHER (chemiluminescent immunoassay) technology. NONREACTIVE: Antibodies [...] DUE TO HIGH REACTIVITY. 07/30/2013 2:48 PM TAIL END RIDER 07/30/2013 3:32 PM TAIL END RIDER Result [facility] Cindy Douglas MD LAB MICROBIOLOGY - GENERA L ORDERABLES Final Result Performing Organization Address [facility] Co de Phone Number [facility] HISTORICAL RESULTS * T4, free (07/30/2013 2:48 PM TAIL END RIDER) Thyroxine (T4) 5.8 4.5 - 11.7 ug/dL 07/30/2013 2:48 PM TAIL END RIDER 07/30/2013 3:32 PM TAIL END RIDER Result [facility] Cindy Douglas MD LAB BLOOD ORDERABLES Jasmin l Result Performing Organization Address City/[facility]/ZIP Co de Phone Number [facility] HISTORICAL RESULTS * TSH (07/30/2013 2:48 PM TAIL END RIDER) TSH 0.96 0.27 - 4.20 uIU/mL 07/30/2013 2:48 PM TAIL END RIDER 07/30/2013 3:32 PM TAIL END RIDER Cindy Douglas MD LAB BLOOD ORDERABLES Jasmin l Result [facility] HISTORICAL RESULTS * Ferritin (07/30/2013 2:48 PM TAIL END RIDER) Ferritin 354.2 30.0 - 400.0 ng/mL 07/30/2013 2:48 PM TAIL END RIDER 07/30/2013 3:32 PM TAIL END RIDER Cindy Douglas MD LAB BLOOD ORDERABLES Jasmin l Result Performing Organization Address [facility] Co de Phone Number [facility] HISTORICAL RESULTS * Iron profile w/ IBC (07/30/2013 2:48 PM TAIL END RIDER) Iron 153 59 - 158 ug/dL Comment:Fasting specimen pre ferred TIBC 357 228 - 428 ug/dL Transferrin % Sat 43 20 - 50 % 07/30/2013 2:48 PM TAIL END RIDER 07/30/2013 3:32 PM TAIL END RIDER Cindy Douglas MD LAB BLOOD ORDERABLES Jasmin l Result Performing Organization Address [facility] Co de Phone Number [facility] HISTORICAL RESULTS * Hepatic function panel (07/30/2013 2:48 PM TAIL END RIDER) Direct Bilirubin < 0.20 0.00 - 0.25 mg/dL 07/30/2013 2:48 PM TAIL END RIDER 07/30/2013 3:32 PM TAIL END RIDER Cindy Douglas MD LAB BLOOD ORDERABLES Jasmin l Result [facility] HISTORICAL RESULTS * (ABNORMAL) Comprehensive metabolic panel (07/30/2013 2:48 PM TAIL END RIDER) [facility] Sodium 138 135 - 145 mmol/L Potassium 3.5 3.3 - 5.1 mmol/L Chloride 102 96 - 108 mmol/L Carbon Dioxide 22 22 - 32 mmol/L Anion Gap 14 Glucose 157(H) 70 - 110 mg/dL BUN 7 6 [...] Total Protein 9.2(H) 6.4 - 8.4 g/dL Albumin 4.6 3.5 - 5.2 g/dL Globulin 4.6(H) 2.3 - 3.5 gm/dL Albumin/Globulin Ratio 1.0(L) 1.1 - 1.8 Total Bilirubin 0.4 0.0 - 1.2 mg/dL AST 110(H) 0 - 38 U/L ALT 110(H) 0 - 41 U/L Alkaline Phosphatase 96 40 - 129 U/L 07/30/2013 2:48 PM TAIL END RIDER 07/30/2013 3:32 PM TAIL END RIDER Cindy Douglas MD LAB BLOOD ORDERABLES Jasmin l Result [facility] HISTORICAL RESULTS * (ABNORMAL) Drug Screen, Urine (07/30/2013 2:37 PM TAIL END RIDER) Ur Amphetamine Screen POSITIVE(H) NEGATIVE Comment: RESULT CALLED at: 1600 07/30/13 by: [id number] to: []Jessica at Dr Douglas's office by Neville Benjamin ?? CONFIRMATION on Positive result requested:[No]Cutoff Limit: ??1000 ng/mL Note: ??Positive results from this drug screen are unconfirmed. ??Unconfirmed screening results should not be used for non-medical purposes. Ur Barbiturates Screen NEGATIVE NEGATIVE Comment:Cutoff limit: 200 ng /mL U Benzodiazepines Scrn POSITIVE(H) NEGATIVE Comment: RESULT CALLED at: 1604 07/30/13 by: [id number] to: []Jessica at Dr Douglas's office by Neville Benjamin ?? CONFIRMATION on Positive result requested:[No]Cutoff limit: 300 ng/mL U Cannabinoids Screen POSITIVE(H) NEGATIVE Comment: RESULT CALLED at: 1604 07/30/13 by: [id number] to: []Jessica at Dr Douglas's office by Neville Benjamin ?? CONFIRMATION on Positive result requested:[No]Cutoff Limit: 50 ng/mL U Cocaine Metab Screen NEGATIVE NEGATIVE Comment:Cutoff limit: 300 ng /mL Urine Opiates Screen NEGATIVE NEGATIVE Comment:Cutoff Limit: 300 ng /mL Urine Creatinine/GERMAN 379.0 mg/dL Comment:If Creatinine is < 4 0 mg/dL, recollection is suggested. 07/30/2013 2:37 PM TAIL END RIDER 07/30/2013 3:39 PM TAIL END RIDER Narrative [facility] HISTORICAL RESULTS - 07/30/2013 4:04 PM TAIL END RIDER us Cindy Douglas MD LAB URINE ORDERABLES Jasmin l Result [facility] HISTORICAL RESULTS documented in this encounter Visit Diagnoses Diagnosis Chronic hepatitis C (CMS/HCC) (HCC) Chronic hepatitis C without mention of hepatic coma documented in this encounter Additional Health Concerns Infection Onset Date Last Indicated Resolved Time 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
--- OUTSIDE RECORDS SUMMARY | 2024-06-27 10:36 | XMS_ITS | Encounter Summary ---
Author Organization [facility] Healthcare Address [address] [place] [address] Care Team Providers Care Movie Actor Name Role Phone No, Physician Primary Care Provider [phone] Encounter Details Date Type Department Care Team (Latest Contact Info) Description 02/22/2019 11:10 AM CDT - 02/22/2019 11:59 PM CDT Hospital Encounter [facility] [address] [place] [address] [place]onel Stauffer MD [address] [place] [address] Discharge Disposition: Discharge to home or self [...] documented as of this encounter Care Teams Movie Actor Relationship Specialty Start Date End Date No, Physician PCP - General 02/21/19 03/01/19 documented as of this encounter
--- OUTSIDE RECORDS SUMMARY | 2024-06-27 10:36 | XMS_ITS | Encounter Summary ---
Author Organization [facility] Healthcare Address [address] [place] [address] Care Team Providers Care Vegetable Preparer Name Role Phone Unavailable Primary Care Provider Unavailabl e Encounter Details Date Type Department Care Team (Latest Contact Info) Description 12/16/2015 9:14 AM CDT Hospital Encounter [facility] OP Cindy Douglas MD [address] [facility] [address] [place] [address] Cirrhosis of liver (CMS/HCC) Social History Tobacco [...] Nassar M.D. AT:at 12:29 PM 12:29 PM [facility] [EOD] us Cindy Douglas MD IMG US PROCEDURES Final R esult documented in this encounter Visit Diagnoses Diagnosis Cirrhosis of liver (HCC) Cirrhosis of liver without mention of alcohol documented in this encounter Additional Health Concerns Infection Onset Date Last Indicated Resolved Time 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
--- OUTSIDE RECORDS SUMMARY | 2024-06-27 10:36 | XMS_ITS | Encounter Summary ---
Author Organization [facility] Care Team Providers Care Thread Singer Name Role Phone No, Physician Primary Care Provider [phone] Encounter Details Date Type Department Care Team [...] documented as of this encounter Care Teams Thread Singer Relationship Specialty Start Date End Date No, Physician PCP - General 02/21/19 03/01/19 documented as of this encounter
--- OUTSIDE RECORDS SUMMARY | 2024-06-27 10:36 | XMS_ITS | Encounter Summary ---
Author Organization [facility] Healthcare Address [address] [place] [id number] Care Team Providers Care Utilization Management Nurse Name Role Phone Unavailable Primary Care Provider Unavailabl e Encounter Details Date Type Department Care Team (Latest Contact Info) Description 09/21/2017 12:00 PM CDT - 09/22/2017 1:15 PM CDT Hospital Encounter [facility] Anil Mccord MD [address] [place] [address] Angiodysplasia of stomach and duodenum with bleeding; [...] - 145 mmol/L 09/22/2017 5:28 AM [facility] Potassium 3.6 3.3 - 5.1 mmol/L 09/22/2017 5:28 AM [facility] [employer] [facility] Chloride 101 96 - 108 mmol/L 09/22/2017 5:28 [facility] Carbon Dioxide 24 22 - 32 mmol/L 09/22/2017 5:28 AM [facility] Anion Gap 12 7 - 16 09/22/2017 5:28 AM [facility] [employer] [facility] Glucose 93 70 - 100 mg/dL 09/22/2017 5:28 AM [facility] BUN 17 6 - 20 mg/dL 09/22/2017 5:28 AM [facility] Creatinine 0.7 0.5 - 1.3 mg/dL 09/22/2017 5:28 AM [facility] [employer] [facility] Comment: NOTE: Estimated GFR (Cockroft-Gault) will NOT be calculated unless patient Height and Weight were entered. Also, Kidney Disease Stage (GFR) and Estimated GFR (Cockroft-Gault) will NOT be calculated if Creatinine result is <0.2. Kidney Disease Stage > 90 mL/MIN 09/22/2017 5:28 AM [facility] Comment: NOTE; ??The GFR is [...] MD LAB BLOOD ORDERABLES Final Result [facility] HISTORICAL RESULTS * (ABNORMAL) CBC with auto differential (09/22/2017 4:39 AM CDT) WBC 4.6 3.5 - 10.5 x10 3/ul 09/22/2017 5:08 AM [facility] Comment:Results reviewed RBC 2.56(L) 4.11 - 5.71 x10 6/ul 09/22/2017 5:[address] [facility] HISTORICAL RESULTS Hemoglobin 8.9(L) 13.0 - 17.0 g/dL 09/22/2017 5:[address] [facility] HISTORICAL RESULTS Hct 25.6(L) 38.2 - 48.5 % 09/22/2017 5:02 AM CDT [facility] MCV 100.0(H) 80.0 - 97.0 fl 09/22/2017 5:02 AM CDT [facility] MCH 34.8(H) 27.0 - 31.2 pg 09/22/2017 5:02 AM CDT [facility] MCHC 34.8 31.8 - 35.4 g/dl 09/22/2017 5:02 AM CDT [facility] RDW 12.6 11.6 - 14.8 % 09/22/2017 5:02 AM CDT [facility] Plt Count 91(L) 150 - 450 X10 3/ul 09/22/2017 5:08 AM CDT [facility] Comment:Results reviewed MPV 10.0 7.4 - 10.4 fl 09/22/2017 5:02 AM CDT [facility] Neut % 53.2 37.0 - 85.0 % 09/22/2017 5:02 AM CDT [facility] Immature Gran % 0.2 0.0 - 3.0 % 09/22/2017 5:02 AM CDT [facility] Lymph % 32.0 5.0 - 45.0 % 09/22/2017 5:02 AM CDT [facility] Morrow % 12.3 3.0 - 15.0 % 09/22/2017 5:02 AM CDT [facility] Eos % 1.7 0.0 - 7.0 % 09/22/2017 5:[address] [facility] HISTORICAL RESULTS Baso % 0.6 0.0 - 2.0 % 09/22/2017 5:[address] [facility] HISTORICAL RESULTS Absolute Neuts (auto) 2.5 1.7 - 8.7 x10 3/ul 09/22/2017 5:[address] [facility] HISTORICAL RESULTS Immature Gran # 0.0 0.0 - 0.3 x10 3/ul 09/22/2017 5:[address] [facility] HISTORICAL RESULTS Absolute Lymphs (auto) 1.5 0.2 [...] MD LAB BLOOD ORDERABLES Final Result [facility] HISTORICAL RESULTS * (ABNORMAL) Hepatitis panel, acute [...] core IgM NONREACT NONREACTIVE 8 10:22 AM [facility] HISTORICAL RESULTS Comment: Siemens CentaurXP using CHRISTOPHER [...] C Ab REACTIVE(H) NONREACTIVE 09/22/2017 10:29 AM [facility] Comment: Siemens CentaurXP using CHRISTOPHER [...] Hepatitis C Virus Note 09/22/2017 10:29 AM [facility] Comment: NO CONFIRMATION TESTING REQUIRED DUE TO HIGH REACTIVITY. ?? NO CONFIRMATION TESTING REQUIRED DUE TO HIGH REACTIVITY. 09/22/2017 4:39 AM CDT 09/22/2017 4:58 AM CDT Result [facility] Annmarie Willingham MD LAB MICROBIOLOGY - GENERAL ORDERABLES Final Result Performing Organization Address [facility] Co de Phone Number [facility] HISTORICAL RESULTS * (ABNORMAL) Hemoglobin and hematocrit (09/21/2017 10:41 PM CDT) Hemoglobin 9.0(L) 13.0 - 17.0 g/dL 09/21/2017 10:[address] [facility] HISTORICAL RESULTS Hct 25.9(L) 38.2 - 48.5 % 09/21/2017 10:[address] [facility] HISTORICAL RESULTS 09/21/2017 10:4 1 PM CDT 09/21/2017 10:43 PM CDT Result [facility] Henrietta Carvalho NP LAB BLOOD ORDERABLES Final Result Performing Organization Address [facility] de Phone Number [facility] HISTORICAL RESULTS * (ABNORMAL) Protime-INR (09/21/2017 3:44 PM CDT) PT 17.4(H) 11.8 - 14.5 SECONDS 09/21/2017 4:[address] [facility] HISTORICAL RESULTS INR 1.42 09/21/2017 4:[address] [facility] HISTORICAL RESULTS Comment: Recommended Therapeutic range for [...] BLOOD ORDERABLES Final Result Performing Organization Address [facility] de Phone Number [facility] HISTORICAL RESULTS * Lipase (09/21/2017 3:43 PM CDT) Pathologist [facility] Lipase 25 13 - 60 U/L 09/21/2017 4:[address] [facility] HISTORICAL RESULTS 09/21/2017 3:43 PM CDT 09/21/2017 3:52 PM CDT Annmarie Willingham MD LAB BLOOD ORDERABLES Final Result Performing Organization Address [facility] de Phone Number [facility] HISTORICAL RESULTS * Amylase (09/21/2017 3:43 PM CDT) Pathologist [facility] Amylase 37 28 - 100 U/L 09/21/2017 4:[address] [facility] HISTORICAL RESULTS 09/21/2017 3:43 PM CDT 09/21/2017 3:52 PM CDT Annmarie Willingham MD LAB BLOOD ORDERABLES Final Result Performing Organization Address [facility] de Phone Number [facility] HISTORICAL RESULTS * Hemoglobin A1c (09/21/2017 3:43 PM CDT) Pathologist [facility] Hemoglobin A1c % 5.1 4.0 - 5.6 % 09/21/2017 4:[address] [facility] HISTORICAL RESULTS Comment: ADA 2016 GUIDELINES: ??Initial Diagnostic Criteria ? HbA1c Result: ?Interpretation: ?<5.7% ? Normal ?5.7-6.4% ?At risk for diabetes mellitus ?>=6.5% ?Consistent with diabetes mellitus ??Diabetes monitoring ? Target value (ADA Recommended) ?? <7% 09/21/2017 3:43 PM CDT 09/21/2017 3:52 PM CDT Annmarie Willingham MD LAB BLOOD ORDERABLES Final Result Performing Organization Address [facility] Phone Number [facility] HISTORICAL RESULTS * Occult blood, fecal non neoplasm screening (09/21/2017 11:20 AM CDT) Stool Occult Blood POSITIVE NEGATIVE 09/21/2017 11:[address] [facility] HISTORICAL RESULTS 09/21/2017 11:2 0 AM CDT 09/21/2017 11:20 AM CDT Narrative [facility] HISTORICAL RESULTS - 09/21/2017 11:23 AM CDT Collected By pb Goyo Augustin RESTRO[employer]S [facility] LAB BODY FLUIDS AND STOOL S ORDERABLES Final Result Performing Organization Address [facility] HISTORICAL RESULTS * Phosphorus (09/21/2017 10:24 AM CDT) Phosphorus 2.8 2.5 - 4.5 mg/dL 09/21/2017 2:[address] [facility] HISTORICAL RESULTS 09/21/2017 10:2 4 AM CDT 09/21/2017 10:31 AM CDT Goyo Augustin NP LAB BLOOD ORDERABLES Jasmin l Result Performing Organization Address [facility] Number [facility] HISTORICAL RESULTS * Magnesium (09/21/2017 10:24 AM CDT) Magnesium 2.1 1.6 - 2.6 mg/dL 09/21/2017 2:[address] [facility] HISTORICAL RESULTS Comment:Magnesium sulfate th erapy: 3.0-9.1 mg/dL 09/21/2017 10:2 4 AM CDT 09/21/2017 10:31 AM CDT Goyo Augustin [employer] LAB BLOOD ORDERABLES Jasmin l Result Performing Organization Address [facility] de Phone Number [facility] HISTORICAL RESULTS * Lipase (09/21/2017 10:24 AM CDT) Lipase 33 13 - 60 U/L 09/21/2017 10:2 4 AM CDT 09/21/2017 10:31 AM CDT Goyo Augustin [employer] LAB BLOOD ORDERABLES Jasmin l Result [facility] HISTORICAL RESULTS * (ABNORMAL) Comprehensive metabolic panel [...] GFR (Cockcroft-G) 174 ml/MIN 09/21/2017 10:53 AM [facility] Comment: Estimated GFR(Cockroft-Gault)is used to calculate patient medication dosage Calcium 9.6 8.6 - 10.0 mg/dL 09/21/2017 10:53 AM [facility] [employer] [facility] Total Protein 8.3 6.4 - 8.3 g/dL 09/21/2017 10:53 AM [facility] HISTOR[facility] RESULTS Albumin 4.2 3.5 - 5.2 g/dL 09/21/2017 10:53 AM [facility] HISTORICAL RESULTS Globulin 4.1(H) 2.3 - 3.5 gm/dL 09/21/2017 10:53 AM [facility] HIST[facility] RESULTS Albumin/Globulin Ratio 1.0(L) 1.1 - 1.8 09/21/2017 10:53 AM [facility] [employer] [facility] RESULTS Total Bilirubin 1.4(H) 0.0 - 1.2 mg/dL 09/21/2017 10:53 AM [facility] [employer] [facility] HISTOR[facility] RESULTS AST 72(H) 0 - 40 U/L 09/21/2017 10:53 AM [facility] RESULTS ALT 43(H) 0 - 41 U/L 09/21/2017 10:53 AM CDT [facility] [employer] HISTORICAL RESULTS Alkaline Phosphatase 80 40 - 129 U/L 09/21/2017 10:53 AM CDT [facility] 09/21/2017 10:2 4 AM CDT 09/21/2017 10:31 AM CDT Goyo Augustin [employer] LAB BLOOD ORDERABLES Jasmin l Result [facility] HISTORICAL RESULTS * (ABNORMAL) CBC with auto differential (09/21/2017 10:24 AM CDT) WBC 7.2 3.5 - 10.5 x10 3/ul 09/21/2017 10:34 AM [facility] RBC 3.46(L) 4.11 - 5.71 x10 6/ul 09/21/2017 10:34 AM T [facility] Hemoglobin 11.9(L) 13.0 - 17.0 g/dL 09/21/2017 10:34 AM T [facility] Hct 34.5(L) 38.2 - 48.5 % 09/21/2017 10:34 AM T [facility] RESULTS MCV 99.7(H) 80.0 - 97.0 fl 09/21/2017 10:34 AM [facility] HIST[facility] RESULTS MCH 34.4(H) 27.0 - 31.2 pg 09/21/2017 10:34 AM T [facility] RESULTS MCHC 34.5 31.8 - 35.4 g/dl 09/21/2017 10:34 AM T [facility] RESULTS RDW 12.7 11.6 - 14.8 % 09/21/2017 10:34 AM T [facility] RESULTS Plt Count 152 150 - 450 X10 3/ul 09/21/2017 10:34 AM [facility] RESULTS MPV 10.1 7.4 - 10.4 fl 09/21/2017 10:34 AM T [facility] RESULTS Neut % 64.4 37.0 - 85.0 % 09/21/2017 10:34 AM [facility]ISTOR[facility] RESULTS Immature Gran % 0.3 0.0 - 3.0 % Lymph % 21.7 5.0 - 45.0 % Morrow % 12.0 3.0 - 15.0 % Eos [...] ORDERABLES Jasmin l Result [facility] HISTORICAL RESULTS documented in this encounter Visit [...]
--- OUTSIDE RECORDS SUMMARY | 2024-06-27 10:36 | XMS_ITS | Encounter Summary ---
Author Organization [facility] Healthcare Address [address] [place] [address] Care Team Providers Care Obstetrics/Gynecology Nurse Name Role Phone Jayne Bowen MD Primary Care Provider + Encounter Details Date Type Department Care Team (Late st Contact Info) Description 12/17/2018 1:01 AM CDT - 12/17/2018 2:49 AM CDT [place] [address] Unknown, Juancho Carson MD [address] [place] [address] Discharge Disposition: Discharge to home or self [...] documented as of this encounter Care Teams Obstetrics/Gynecology Nurse Relationship Specialty Start Date End Date Jayne Bowen MD [address] [place] [address] PCP - General 09/24/18 02/20/19 documented as of this encounter
--- OUTSIDE RECORDS SUMMARY | 2024-06-27 10:36 | XMS_ITS | Encounter Summary ---
Author Organization [facility] Healthcare Address [address] [place] [id number] Care Team Providers Care Soil Surveyor Name Role Phone Unavailable Primary Care Provider Unavailabl e Encounter Details Date Type Department Care Team (Latest Contact Info) Description 03/09/2018 3:43 PM CDT - 03/11/2018 7:52 AM CDT Hospital Encounter [facility] Tawanna Corey MD [address] [place] [address] Alcoholic cirrhosis of liver with ascites (CMS/HCC); [...] - 145 mmol/L 03/10/2018 7:18 AM CDT [facility] HISTORICAL RESULTS Potassium 3.7 3.3 - 5.1 mmol/L 03/10/2018 7:18 AM CDT [facility] HISTORICAL RESULTS Chloride 105 96 - 108 mmol/L 03/10/2018 7:18 AM CDT [facility] HISTORICAL RESULTS Carbon Dioxide 24 22 - 32 mmol/L 03/10/2018 7:18 AM CDT [facility] HISTORICAL RESULTS Anion Gap 8 7 - 16 03/10/2018 7:18 AM CDT [facility] HISTORICAL RESULTS Glucose 105(H) 70 - 100 mg/dL 03/10/2018 7:18 AM CDT [facility] HISTORICAL RESULTS BUN 9 6 - 20 mg/dL 03/10/2018 7:18 AM CDT [facility] HISTORICAL RESULTS Creatinine 0.6 0.5 - 1.3 mg/dL 03/10/2018 7:18 AM CDT [facility] HISTORICAL RESULTS Comment: NOTE: Estimated GFR (Cockroft-Gault) will NOT be calculated unless patient Height and Weight were entered. Also, Kidney Disease Stage (GFR) and Estimated GFR (Cockroft-Gault) will NOT be calculated if Creatinine result is <0.2. Kidney Disease Stage > 90 mL/MIN 03/10/2018 7:18 AM [employer] [facility] HISTORICAL RESULTS Comment: NOTE; ??The GFR is [...] GFR (Cockcroft-G) 169 ml/MIN 03/10/2018 7:18 AM [employer] [facility] Mantis [employer] HISTORICAL RESULTS Comment: Estimated GFR(Cockroft-Gault)is used to calculate patient medication dosage Calcium 7.7(L) 8.6 - 10.0 mg/dL 03/10/2018 7:18 AM [facility] HISTORICAL RESULTS Total Protein 6.2(L) 6.4 - 8.3 g/dL Albumin 2.7(L) 3.5 - 5.2 g/dL Globulin 3.5 2.3 - 3.5 gm/dL 03/10/2018 7:18 AM [facility] Mantis Dep[facility] HISTORICAL RESULTS Albumin/Globulin Ratio 0.8(L) 1.1 - 1.8 Total Bilirubin 1.6(H) 0.0 - 1.2 mg/dL AST 150(H) 0 - 40 U/L ALT 36 0 - 41 U/L Alkaline Phosphatase 83 40 - 129 U/L 03/10/2018 5:58 AM CDT 03/10/2018 6:35 AM CDT us Jonny Tomas MD LAB BLOOD ORDERABLES Final Result [facility] HISTORICAL RESULTS * (ABNORMAL) CBC with [...] Lymph % 21.0 5.0 - 45.0 % [place] % 12.9 3.0 - 15.0 % Eos [...] Tomas MD LAB BLOOD ORDERABLES Final Result [facility] HISTORICAL RESULTS * (ABNORMAL) CBC with [...] Lymph % 23.5 5.0 - 45.0 % [place] % 12.8 3.0 - 15.0 % Eos [...] Result Performing Organization Address [facility] Co de Phone Number [facility] HISTORICAL RESULTS * (ABNORMAL) Protime-INR (03/09/2018 3:34 [...] Result Performing Organization Address [facility] Co de Phone Number [facility] HISTORICAL RESULTS * H. pylori antibody, IgG (03/09/2018 3:34 AM CDT) H. pylori IgG NEGATIVE NEGATIVE 03/09/2018 3:34 AM CDT 03/09/2018 3:38 AM CDT us Jonny Tomas MD LAB BLOOD ORDERABLES Final Result [facility] HISTORICAL RESULTS * (ABNORMAL) Comprehensive metabolic [...] Tomas MD LAB BLOOD ORDERABLES Final Result [facility] HISTORICAL RESULTS * (ABNORMAL) CBC with auto differential (03/09/2018 3:34 AM CDT) WBC 4.7 3.5 - 10.5 x10 3/ul 03/09/2018 3:[address] HISTORICAL RESULTS Comment:Results reviewed RBC 1.99(L) 4.11 - 5.71 x10 6/ul 03/09/2018 3:[address] HISTORICAL RESULTS Comment:Results reviewed Hemoglobin 6.8(LL) 13.0 - 17.0 g/dL 03/09/2018 3:[address] HISTORICAL RESULTS Comment: CRITICAL VALUE CALLED and REPEATED. ?? at:0344 03/09/18 by:Anali Fernandez to:JOAN [id number] ?? Hct 21.0(L) 38.2 - 48.5 % 03/09/2018 3:[address] [facility] HISTORICAL RESULTS MCV 105.5(H) 80.0 - 97.0 fl 03/09/2018 3:[address] [facility] HISTORICAL RESULTS MCH 34.2(H) 27.0 - 31.2 pg 03/09/2018 3:[address] [facility] HISTORICAL RESULTS MCHC 32.4 31.8 - 35.4 g/dl 03/09/2018 3:[address] [facility] HISTORICAL RESULTS RDW 14.1 11.6 - 14.8 % 03/09/2018 3:[address] [facility] HISTORICAL RESULTS Plt Count 100(L) 150 - 450 X10 3/ul 03/09/2018 3:[address] [facility] HISTORICAL RESULTS MPV 10.0 7.4 - 10.4 fl 03/09/2018 3:[address] [facility] HISTORICAL RESULTS Neut % 61.1 37.0 - 85.0 % 03/09/2018 3:[address] [facility] HISTORICAL RESULTS Immature Gran % 0.2 0.0 - 3.0 % 03/09/2018 3:[address] HISTORICAL RESULTS Lymph % 22.6 5.0 - 45.0 % [place] % 11.2 3.0 - 15.0 % Eos [...] D: ??03/09/2018 11:22 PM T: Report ID: [id number] Reading Location: ??[id number] [EOD] Narrative 03/09/2018 11:25 PM CDT EXAM [...] Romel Ambriz M.D. RW T: Report ID: [id number] Reading Location: [id number] [EOD] us Lia Valladares MD IMG CT [...] D: ??03/09/2018 11:26 PM T: Report ID: [id number] Reading Location: ??[id number] [EOD] Narrative 03/09/2018 11:28 PM CDT EXAM [...] Romel Ambriz M.D. RW T: Report ID: [id number] Reading Location: [place] [id number] [EOD] Lia Valladaers MD IMG CT PROCEDURES Final Resul t * (ABNORMAL) Hemoglobin and hematocrit (03/08/2018 9:52 PM CDT) Pathologist [facility] Hemoglobin 7.6(L) 13.0 - 17.0 g/dL Hct 23.2(L) 38.2 - 48.5 % 03/08/2018 9:52 PM CDT 03/08/2018 10:07 PM CDT Jonny Tomas MD LAB BLOOD ORDERABLES Final Result [facility] HISTORICAL RESULTS * MRSA PCR, surveillance (03/08/2018 11:15 AM CDT) Pathologist [facility] MRSA Surveill Initial MRSA NEGATIVE NEGATIVE Comment:MRSA target DNA sequ ences are not detected. 03/08/2018 11:1 5 AM CDT 03/08/2018 11:25 AM CDT Narrative [facility] HISTORICAL RESULTS - 03/08/2018 12:39 PM CDT Collected By gl Soha Spangler DO LAB MICROBIOLOGY - GENERAL ORDERABLES Final Result [facility] HISTORICAL RESULTS * (ABNORMAL) Comprehensive metabolic [...] GFR (Cockcroft-G) 262 ml/MIN 03/08/2018 11:13 AM [facility] Comment: Estimated GFR(Cockroft-Gault)is used to calculate patient medication dosage Calcium 8.2(L) 8.6 - 10.0 mg/dL 03/08/2018 11:13 AM [facility] H[facility] RESULTS Total Protein 6.3(L) 6.4 - 8.3 g/dL 03/08/2018 11:13 AM [facility] H[facility] RESULTS Albumin 2.7(L) 3.5 - 5.2 g/dL Globulin 3.6(H) 2.3 - 3.5 gm/dL 03/08/2018 11:13 AM [facility] HISTOR[facility] RESULTS Albumin/Globulin Ratio 0.8(L) 1.1 - 1.8 Total Bilirubin 1.4(H) 0.0 - 1.2 mg/dL 03/08/2018 11:13 AM [facility]antis Dep[facility] HISTORICAL RESULTS AST 141(H) 0 - 40 U/L 03/08/2018 11:14 AM [facility] HISTOR[facility] RESULTS Comment: MODERATELY HEMOLYZED: Hemolysis interferes with the above test. ALT 43(H) 0 - 41 U/L 03/08/2018 11:13 AM [facility] [employer] HISTORICAL RESULTS Alkaline Phosphatase 98 40 - 129 U/L 03/08/2018 11:13 AM [facility] HISTOR[facility] RESULTS 03/08/2018 10:4 0 AM CDT 03/08/2018 10:42 AM CDT Jonny Greggrupa Mitzy Tomas MD LAB BLOOD ORDERABLES Final Result [facility] HISTORICAL RESULTS * (ABNORMAL) Hepatitis panel, [...] IgM NONREACT NONREACTIVE 8 12:03 PM T [facility] HISTORICAL RESULTS Comment: Siemens CentaurXP using [...] LAB MICROBIOLOGY - GENERAL ORDERABLES Final Result [facility] HISTORICAL RESULTS * (ABNORMAL) CBC with auto differential (03/08/2018 10:39 AM CDT) WBC 6.8 3.5 - 10.5 x10 3/ul Comment:Results reviewed RBC 2.62(L) 4.11 - 5.71 x10 6/ul Hemoglobin 8.9(L) 13.0 - 17.0 g/dL Hct 27.4(L) 38.2 - 48.5 % MCV 104.6(H) 80.0 - 97.0 fl MCH 34.0(H) 27.0 - 31.2 pg MCHC 32.5 31.8 - 35.4 g/dl RDW 14.2 11.6 - 14.8 % Plt Count 130(L) 150 - 450 X10 3/ul MPV 10.5(H) 7.4 - 10.4 fl Neut % 65.9 37.0 - 85.0 % Immature Gran % 0.3 0.0 - 3.0 % Lymph % 17.0 5.0 - 45.0 % [place] % 14.6 3.0 - 15.0 % Eos [...] [facility]/State/ZIP Co de Phone Number [facility] HISTORICAL RESULTS * Ethanol (03/08/2018 6:47 AM CDT) Ethyl Alcohol 18 mg/dL Comment:% = mg/dL x .001 03/08/2018 6:47 AM CDT 03/08/2018 6:51 AM CDT Soha Spangler DO LAB BLOOD ORDERABLES Final Result [facility] HISTORICAL RESULTS * (ABNORMAL) Protime-INR (03/08/2018 6:47 [...] BLOOD ORDERABLES Final Result Performing Organization Address City/[facility] Co de Phone Number [facility] HISTORICAL RESULTS * (ABNORMAL) aPTT (03/08/2018 6:47 AM CDT) APTT 36(H) 26 - 33 SECONDS 03/08/2018 6:47 AM CDT 03/08/2018 6:51 AM CDT Soha Spangler DO LAB BLOOD ORDERABLES Final Result Performing Organization Address [facility] Phone Number [facility] HISTORICAL RESULTS * (ABNORMAL) Comprehensive metabolic [...] Stage > 90 mL/MIN 03/08/2018 7:29 AM [facility] HISTORICAL RESULTS Comment: NOTE; ??The GFR is [...] GFR (Cockcroft-G) 262 ml/MIN 03/08/2018 7:29 AM [employer] [facility] HISTORICAL RESULTS Comment: Estimated GFR(Cockroft-Gault)is used to calculate patient medication dosage Calcium 8.3(L) 8.6 - 10.0 mg/dL Total Protein 6.5 6.4 - 8.3 g/dL 03/08/2018 7:29 AM [facility] HISTOR[facility] RESULTS Albumin 2.8(L) 3.5 - 5.2 g/dL Globulin 3.7(H) 2.3 - 3.5 gm/dL 03/08/2018 7:29 AM [facility]antis [employer] [facility] HISTORICAL RESULTS Albumin/Globulin Ratio 0.8(L) 1.1 - 1.8 03/08/2018 7:29 AM [facility] [employer] [facility] HISTORICAL RESULTS Total Bilirubin 1.4(H) 0.0 - 1.2 mg/dL AST 145(H) 0 - 40 U/L ALT 45(H) 0 - 41 U/L Alkaline Phosphatase 110 40 - 129 U/L 03/08/2018 6:47 AM CDT 03/08/2018 6:51 AM CDT us Soha Spangler DO LAB BLOOD ORDERABLES Final Result [facility] HISTORICAL RESULTS * (ABNORMAL) CBC with [...] Lymph % 18.7 5.0 - 45.0 % [place] % 15.9(H) 3.0 - 15.0 % Eos [...] Spangler DO LAB BLOOD ORDERABLES Final Result [facility] HISTORICAL RESULTS * XR Chest 1 View (03/08/2018 12:00 AM CDT) Anatomical Region Laterality Modality Body, Chest N/A Radiographic Lynette ging 03/08/2018 Impressions 03/08/2018 7:19 AM CDT ??No acute cardiopulmonary disease. THIS IS AN ELECTRONICALLY VERIFIED FINAL REPORT 03/08/2018 7:16 AM - Electronically signed by Oskar Stephens M.D. [place] D: ??03/08/2018 7:16 AM T: Report ID: [id number] Reading Location: ??[id number] [EOD] Narrative 03/08/2018 7:19 AM CDT EXAM [...] signed by Oskar PANIAGUA T: Report ID: [id number] Reading Location: [id number] [EOD] Soha Spangler DO IMG XR PROCEDURES [...]
--- OUTSIDE RECORDS SUMMARY | 2024-06-27 10:36 | XMS_ITS | Encounter Summary ---
Author Organization [facility] Healthcare Address [address] [place] [address] Care Team Providers Care Storeroom Clerk Name Role Phone Unavailable Primary Care Provider Unavailabl e Encounter Details Date Type Department Care Team (Late st Contact Info) Description 03/17/2014 10:41 AM CDT Hospital Encounter [facility] OP Jayne Bowen MD [address] [place] [address] Lumbosacral spondylosis without myelopathy; Displacement of lumbar [...] Yun D.O. :as 12:08 PM 12:[address] 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
--- OUTSIDE RECORDS SUMMARY | 2024-06-27 10:36 | XMS_ITS | Encounter Summary ---
Author Organization [facility] Healthcare Address [address] [place] [address] Care Team Providers Care Aprn Name Role Phone No, Physician Primary Care Provider [phone] Encounter Details Date Type Department Care Team (Latest Contact Info) Description 02/24/2019 7:30 AM CDT - 02/24/2019 7:55 AM CDT Surgery [facility] [address] [place] [address] Phi Vasquez MD [address] [facility] [address] [place], [place] [id number] ESOPHAGOGASTRODUODENOSCOPY BAND LIGATION Surgery Details Date/Time Status Location OR Service Patient Class Case Class Case Type Trauma Case? 02/24/2019 7:30 AM Posted [facility] 224 Gastroenterology Inpatient Elective Panel [...] Primary Care Physician at Discharge: Physician No [id number] Admission Date: 02/21/2019 Discharge Date: 02/25/2019 Admission Location: [facility] Primary Discharge Diagnosis: Upper GI Bleed [...] Hb 11.6 (repeat 11.1) at [facility]. CT A/P was consistent with cirrhosis andportal hypertension. At [facility], patient was started on a Protonix gtt, Octreotide gtt, and NS 100cc/hr. He also received 4mg Ativan for EtOH withdrawal and Compazine/Zofran for nausea. At arrival to [facility], patient has 2 PIV (18g, 20g) for [...] were sent to his local pharmacy in [place], [place]. 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 No [...] you utilize the resources provided by your home health care social worker to abstain from alcohol. [...] Center 02/28/2019 1:45 PM Ainsley Mcfarland MD [facility] Contact Information for Follow-ups Gastroententerology Specialty: [...] you utilize the resources provided by your home health care social worker to abstain from alcohol. [...] Age: 48 y.o. male Admit: 02/21/2019 Bed: [id number] Subjective Chief complaint: GI Bleed Interval History: [...] through Sunday from 0800 to 1700 at [phone]. From 1700 to 0800 Sunday through Sunday and all day Sunday/Sunday, we can be reached at [phone]. Amrit Painter MD Gastroenterology Fellow, * Preeti Garay RN - 02/24/2019 3:05 PM CDT 02/24/19 1400 County Information [facility] [place], [place] Patient Information Primary Caregiver Self Support [...] Responsibility Patient/Designated decision maker was informed of [facility] fiduciary relationship as necessary Chart reviewed for: [...] Confirmed: No PCP. Would like appt at [facility] medicine clinic Referrals initiated to: none at [...] if I may be of any assistance. [phone] * Juancho Rodriguez MD - 02/24/2019 2:53 PM CDT Daily Progress Note Medicine FIRM Name: Chester Dubose Today: February 24, 2019 : 1970 Age: 48 y.o. male Admit: 02/21/2019 Bed: [id number] Subjective Chief complaint: GI Bleed Interval History: [...] agrees with it. Electronically signed by: Kenyon oGlden M.D. Us Liver W Complete Doppler (c) [...] - 02/23/1959 02/23/19699 - 02/24/19 0659 Shift [id number] 1498-3361 24 Hour Total 0961-5774 6998-4564 24 Hour Total INTAKE P.O. 8423 289 7760 600 600 I.V.(mL/kg) 135(1.6) 108.3(1.3) 243.3(2.8) 41(0.5) [...] test: 02/22/2019 Type of test: TTE w/Doppler [facility] #: [id number] Date of : 1970 (M) Glassware Maker Demonstrator: Beatriz Plata RDCS Referring Physician: CARLOS ROJO MD Contrast Agent: Contrast Administered by: Supervised/Interpreted by: Montrell Michel MD Diagnosis: Dyspnea Pre-Op Location: [facility] Reason for test: Pre TIPS MV Structure: [...] 2=Hypo 3=Akinetic 4=Dyskin./Aneurysm 0=Not visualized) Parasternal Long Elton:MAS=1 BAS=1 MP=1 BP=1 Parasternal Short Elton:MAS=1 MS=1 MD=1 MP=1 ML=1 MA=1 Apical 4 Chambers:=1 MS=1 BS=1 BL=1 MD=1 AL=1 Apical 2 Chambers:AI=1 MD=1 BI=1 BA=1 MA=1 AA=1 LV Global Longitudinal [...] MD By signing this report, the attending chief supply chain officer certifies that he or she has [...] ~9 since arrival. -Continue CLD, NPO at [facility] for possible EGD Hepatitis C Assessment & [...] plan with the ICU team and other medical/polymer materials consultant staff. * Ranjan Enriquez MD - [...] Date 02/21/19699 - 02/22/1965802/22/19699 - 02/23/19658 Shift [id number] 24 Hour Total 4018-6908 1520-9889 24 Hour Total INTAKE P.O. 240 240 [...] plan with the ICU team and other medical/polymer materials consultant staff. documented in this encounter H&P [...] no record available. VSS upon arrival at [facility] ICU, repeat hbg 10.1-->9.5, plt 81, INR 1.63 at [facility]. No hematemesis or melenia after arrival at [facility]. U/S showed diffuse hepatic steatosis and cirrhosis, retrograde portal flow without portal vein thrombosis Pt is being transferred to the floor per ICU team. Pt had a brownish BM in the ICU today. I have reviewed the patient's records in ClinDesk and Allsdripts: my findings are summarized above. No past [...] is now on the list to [facility] floor. - maintain 2 large [...] through Sunday from 0800 to 1700 at [phone]. From 1700 to 0800 Sunday through Sunday and all day Sunday/Sunday, we can be reached at [phone]. Lawanda Cohen MD PhD Gastroenterology Fellow Cosigned [...] Hb 11.6 (repeat 11.1) at [facility]. CT A/P was consistent with cirrhosis andportal hypertension. At [facility], patient was started on a Protonix gtt, Octreotide gtt, and NS 100cc/hr. He also received 4mg Ativan for EtOH withdrawal and Compazine/Zofran for nausea. 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 Objective Scheduled [...] N/A Reilly Oneill PGY-1 02/21/2019 11:07 AM [phone] Cosigned by Capo Aguilera MD at 02/21/2019 [...] plan with the ICU team and other medical/polymer materials consultant staff. documented in this encounter Procedure Notes * Phi Vasquez MD - 02/24/2019 7:46 AM CDTAssociated Order(s): EGD [facility] Patient Name: Chester Dubose Procedure Date: 02/24/2019 7:46 AM Date of : 1970 Admit Type: Inpatient Age: 48 Gender: Male Attending MD: Phi Vasquez M.D. Room: [facility] OR POD 5 ROOM 224 Note [...] passed under direct vision. The GIF [id number] endoscope was introduced through the mouth, and [...] On: 02/24/2019 7:46 AM Recognized by the [employer] for promoting quality [...] SW needs at this time. PIPER [place] #[phone] * Lawanda Cohen MD PhD - 02/21/2019 [...] no record available. VSS upon arrival at [facility] ICU, repeat hbg 10.1-->9.5, plt 81, INR 1.63 at [facility]. No hematemesis or melenia after arrival at [facility]. U/S showed diffuse hepatic steatosis and [...] but is now on the list to [facility]. - maintain 2 large IVs - [...] through Sunday from 0800 to 1700 at [phone]. From 1700 to 0800 Sunday through Sunday and all day Sunday/Sunday, we can be reached at [phone]. Lawanda Cohen MD PhD Gastroenterology Fellow Cosigned [...] with pt. Pt verbalizes understanding. 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 To be transported home per friend. Pt discharged to home. * Ethan Kowalski RN - 02/23/2019 4:30 PM CDT Received patient from ICU per bed in stable condition but weak, skin intact. With 2 [address]place. All belongings locked in the bedside drawer. No significant changes from previous assessment. * Radha Gómez RN - 02/23/2019 4:17 PM CDT Patient transferred to [facility] via bed. Report given to REJI Long. Octreotide gtt continuous infusion.Pt with 2 PIV. No wounds. Belongings include hat, pants, shirt, shoes, keys, wallet, pocket knife, $16 in wallet, ID, and card. Belongings list read to patient and patient agrees. A&O x3-4. Room air. VSS. Labs stable. * Bibi Laird RN - 02/21/2019 7:42 AM CDT Pt admitted from [facility] at 0545 per EMS. Pt has 2 PIV with octreotide and protonix running on arrival. Both meds stopped at this time. Blood cultures drawn x 2. Pt refused MICU bath. 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 * Plan of Care - Gerard Mnote RN - 02/25/2019 4:18 AM CDT Goals: [...] were sent to his local pharmacy in [place], [place]. 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 No [...] seizures. ?? He presented to [facility] following 4 episodes of [...] Hb 11.6 (repeat 11.1) at [facility]. CT A/P was consistent with cirrhosis andportal hypertension. At [facility], patient was started on a Protonix gtt, Octreotide gtt, and NS 100cc/hr. He also received 4mg Ativan for EtOH withdrawal and Compazine/Zofran for nausea. At arrival to [facility], patient has 2 PIV (18g, 20g) for [...] planning needs arise, please call covering case filler. Patient admitted with: GIB Patient transferred from [...] ~9 since arrival. -Continue CLD, NPO at [facility] for possible EGD * Assessment & Plan [...] * Phosphorus (02/24/2019 9:20 PM CDT) Pathologist [facility] Phosphorus, pl 3.2 2.3 - 4.5 mg/dL [facility] Comment:Hemolyzed; result ma y be falsely elevated. Blood specimen (specimen) 02/24/2019 9:20 PM CDT 02/24/2019 9:50 PM CDT Colleen aDmon MD LAB BLOOD ORDERABLES Final R esult Performing Organization Address [facility] Co de Phone Number [address] [address] * Magnesium (02/24/2019 9:20 PM CDT) Pathologist [facility] Magnesium 1.9 1.4 - 2.5 mg/dL [facility] Blood specimen (specimen) 02/24/2019 9:20 PM CDT 02/24/2019 9:50 PM CDT Colleen Damon MD LAB BLOOD ORDERABLES Final R esult Performing Organization Address [facility] Co de Phone Number [address] [address] * Differential, auto (02/24/2019 9:20 PM CDT) Pathologist [facility] Neutrophil abs 3.6 1.7 - 6.5 K/cumm [facility] Imm gran abs 0.0 0.0 - 0.1 K/cumm [facility] Lymphocyte abs 1.1 0.8 - 3.3 K/cumm [facility] Monocyte abs 0.6 0.2 - 0.8 K/cumm [facility] Eosinophil abs 0.2 0.0 - 0.5 K/cumm [facility] Basophil abs 0.0 0.0 - 0.1 K/cumm [facility] Neutrophil pct 65.1 % [facility] Comment: Interpretive Data Percent cell count reference ranges are not reported, since discordance with absolute values may lead to misinterpretation of CBC data. Current Interpretive Data was last revised on 2017. Imm gran pct 0.4 % [facility] Comment: Interpretive Data Percent cell count reference ranges are not reported, since discordance with absolute values may lead to misinterpretation of CBC data. Current Interpretive Data was last revised on 2017. Lymphocyte pct 19.7 % [facility] Comment: Interpretive Data Percent cell count reference ranges are not reported, since discordance with absolute values may lead to misinterpretation of CBC data. Current Interpretive Data was last revised on 2017. Monocyte pct 10.5 % [facility] Comment: Interpretive Data Percent cell count reference ranges are not reported, since discordance with absolute values may lead to misinterpretation of CBC data. Current Interpretive Data was last revised on 2017. Eosinophil pct 3.4 % [facility] Comment: Interpretive Data Percent cell count reference ranges are not reported, since discordance with absolute values may lead to misinterpretation of CBC data. Current Interpretive Data was last revised on 2017. Basophil pct 0.9 % [facility] Comment: Interpretive Data Percent cell count reference ranges are not reported, since discordance with absolute values may lead to misinterpretation of CBC data. Current Interpretive Data was last revised on 2017. Blood specimen (specimen) 02/24/2019 9:20 PM CDT 02/24/2019 9:49 PM CDT Colleen Damon MD LAB BLOOD ORDERABLES Final R esult Performing Organization Address City/[facility]/ZIP Co de Phone Number [address] [place] [address] * (ABNORMAL) Basic metabolic panel (02/24/2019 9:20 PM CDT) Pathologist [facility] Sodium 137 135 - 145 mmol/L [facility] Potassium, pl See Comment 3.3 - 4.9 mmol/L [facility] Comment:CRDT; Grossly Hemoly zed sample; Unable to test. Chloride 105 97 - 110 mmol/L [facility] CO2 24 22 - 32 mmol/L [facility] Anion gap 8 2 - 15 mmol/L [facility] BUN 3(L) 8 - 25 mg/dL [facility] Creatinine 0.62(L) 0.80 - 1.30 mg/dL [facility] Glucose 103 70 - 199 mg/dL [facility] Comment: Interpretive Data Fasting glucose >/= 126 [...] 2017. Calcium 8.4(L) 8.5 - 10.3 mg/dL [facility] Blood specimen (specimen) 02/24/2019 9:20 PM CDT 02/24/2019 9:50 PM CDT Colleen Damon MD LAB BLOOD ORDERABLES Final R [facility] Performing Organization Address City/[facility]/ZIP Co de Phone Number [address] [place] [address] * (ABNORMAL) CBC with auto differential (02/24/2019 9:20 PM CDT) Pathologist [facility] WBC 5.5 3.8 - 9.9 K/cumm [facility] Hgb 10.0(L) 13.0 - 17.5 g/dL [facility] Hct 30.8(L) 38.9 - 50.3 % [facility] Plt 87(L) 150 - 400 K/cumm [facility] MPV 10.7 9.1 - 12.3 fL [facility] RBC 3.06(L) 4.30 - 5.80 M/cumm [facility] MCV 100.7(H) 81.3 - 96.4 fL [facility] MCH 32.7 27.1 - 33.3 pg [facility] MCHC 32.5 32.3 - 35.7 g/dL [facility] RDW CV 14.3 11.1 - 14.9 % [facility] RDW SD 51.7(H) 35.7 - 48.1 fL [facility] NRBC abs 0.00 0.00 - 0.01 K/cumm [facility] Blood specimen (specimen) 02/24/2019 9:20 PM CDT 02/24/2019 9:49 PM CDT us Colleen Damon MD LAB BLOOD ORDERABLES Final R esult Performing Organization Address City/State/[facility] Co de Phone Number [address] [place] [address] * EGD (02/24/2019 7:46 AM CDT) Anatomical Region Laterality Modality Other Narrative Procedure Note Phi Vasquez MD - 02/24/2019 7:46 AM CDT [facility] Patient Name: Chester Dubose Procedure Date: 02/24/2019 7:46 AM Date of : 1970 Admit Type: Inpatient Age: 48 Gender: Male Attending MD: Phi Vasquez M.D. Room: [facility] OR POD 5 ROOM 224 Note [...] was passed under direct vision.The [id number] [id number] endoscope was introduced throughthe mouth, and advanced [...] insertion to removal of the endoscope. Phi aVsquez M.D. 02/24/2019 8:55:01 AM Number of Addenda: 0 Note Initiated On: 02/24/2019 7:46 AM Recognized by the [employer] for promoting quality [...] [facility] Neutrophil pct 62.7 % [facility] Comment: Interpretive Data Percent cell count reference ranges are not reported, since discordance with absolute values may lead to misinterpretation of CBC data. Current Interpretive Data was last revised on 2017. Imm gran pct 0.3 % [facility] Comment: Interpretive Data Percent cell count reference ranges are not reported, since discordance with absolute values may lead to misinterpretation of CBC data. Current Interpretive Data was last revised on 2017. Lymphocyte pct 22.6 % [facility] Comment: Interpretive Data Percent cell count reference ranges are not reported, since discordance with absolute values may lead to misinterpretation of CBC data. Current Interpretive Data was last revised on 2017. Monocyte pct 8.7 % [facility] Comment: Interpretive Data Percent cell count reference ranges are not reported, since discordance with absolute values may lead to misinterpretation of CBC data. Current Interpretive Data was last revised on 2017. Eosinophil pct 4.4 % [facility] Comment: Interpretive Data Percent cell count reference ranges are not reported, since discordance with absolute values may lead to misinterpretation of CBC data. Current Interpretive Data was last revised on 2017. Basophil pct 1.3 % [facility] Comment: Interpretive Data Percent cell count reference ranges are not reported, since discordance with absolute values may lead to misinterpretation of CBC data. Current Interpretive Data was last revised on 2017. Blood specimen (specimen) 02/24/2019 4:35 AM CDT 02/24/2019 6:08 AM CDT Carlos Rojo MD LAB BLOOD ORDERABLE S Final Result [facility] [address] [place], [place] [id number] * (ABNORMAL) CBC with auto differential (02/24/2019 4:35 AM CDT) WBC 3.9 3.8 - 9.9 K/cumm [facility] Hgb 9.6(L) 13.0 - 17.5 g/dL [facility] Hct 29.1(L) 38.9 - 50.3 % [facility] Plt 78(L) 150 - 400 K/cumm [facility] MPV 11.4 9.1 - 12.3 fL [facility] RBC 2.90(L) 4.30 - 5.80 M/cumm [facility] MCV 100.3(H) 81.3 - 96.4 fL [facility] MCH 33.1 27.1 - 33.3 pg [facility] MCHC 33.0 32.3 - 35.7 g/dL [facility] RDW CV 14.0 11.1 - 14.9 % [facility] RDW SD 50.6(H) 35.7 - 48.1 fL [facility] NRBC abs 0.00 0.00 - 0.01 K/cumm [facility] Blood specimen (specimen) 02/24/2019 4:35 AM CDT 02/24/2019 6:08 AM CDT us Carlos Rojo MD LAB BLOOD ORDERABLE S Final Result Performing Organization Address [facility] de Phone Number [address] [address] * Phosphorus (02/24/2019 4:35 AM CDT) Phosphorus, pl 2.9 2.3 - 4.5 mg/dL [facility] Blood specimen (specimen) 02/24/2019 4:35 AM CDT 02/24/2019 6:10 AM CDT us Carlos Rojo MD LAB BLOOD ORDERABLE S Final Result Performing Organization Address [facility] de Phone Number [address] [address] * Magnesium (02/24/2019 4:35 AM CDT) Magnesium 1.7 1.4 - 2.5 mg/dL [facility] Blood specimen (specimen) 02/24/2019 4:35 AM CDT 02/24/2019 6:10 AM CDT us Carlos Rojo MD LAB BLOOD ORDERABLE S Final Result Performing Organization Address [facility] Co de Phone Number [address] [address] * (ABNORMAL) Basic metabolic panel (02/24/2019 4:35 AM CDT) Pathologist [facility] Sodium 138 135 - 145 mmol/L [facility] Potassium, pl 3.3 3.3 - 4.9 mmol/L [facility] Chloride 105 97 - 110 mmol/L [facility] CO2 26 22 - 32 mmol/L [facility] Anion gap 7 2 - 15 mmol/L [facility] BUN 4(L) 8 - 25 mg/dL [facility] Creatinine 0.72(L) 0.80 - 1.30 mg/dL [facility] Glucose 127 70 - 199 mg/dL [facility] Comment: Interpretive Data Fasting glucose >/= 126 [...] 2017. Calcium 8.3(L) 8.5 - 10.3 mg/dL [facility] Blood specimen (specimen) 02/24/2019 4:35 AM CDT 02/24/2019 6:10 AM CDT us Carlos Rojo MD LAB BLOOD ORDERABLE S Final Result [facility] [address] [place] [address] * Differential, auto (02/23/2019 5:06 PM CDT) Pathologist [facility] Neutrophil abs 2.5 1.7 - 6.5 K/cumm [facility] Imm gran abs 0.0 0.0 - 0.1 K/cumm [facility] Lymphocyte abs 0.8 0.8 - 3.3 K/cumm [facility] Monocyte abs 0.3 0.2 - 0.8 K/cumm [facility] Eosinophil abs 0.1 0.0 - 0.5 K/cumm [facility] Basophil abs 0.0 0.0 - 0.1 K/cumm [facility] Neutrophil pct 66.6 % [facility] Comment: Interpretive Data Percent cell count reference ranges are not reported, since discordance with absolute values may lead to misinterpretation of CBC data. Current Interpretive Data was last revised on 2017. Imm gran pct 0.3 % [facility] Comment: Interpretive Data Percent cell count reference ranges are not reported, since discordance with absolute values may lead to misinterpretation of CBC data. Current Interpretive Data was last revised on 2017. Lymphocyte pct 21.2 % [facility] Comment: Interpretive Data Percent cell count reference ranges are not reported, since discordance with absolute values may lead to misinterpretation of CBC data. Current Interpretive Data was last revised on 2017. Monocyte pct 7.9 % [facility] Comment: Interpretive Data Percent cell count reference ranges are not reported, since discordance with absolute values may lead to misinterpretation of CBC data. Current Interpretive Data was last revised on 2017. Eosinophil pct 3.2 % [facility] Comment: Interpretive Data Percent cell count reference ranges are not reported, since discordance with absolute values may lead to misinterpretation of CBC data. Current Interpretive Data was last revised on 2017. Basophil pct 0.8 % [facility] Comment: Interpretive Data Percent cell count reference ranges are not reported, since discordance with absolute values may lead to misinterpretation of CBC data. Current Interpretive Data was last revised on 2017. Blood specimen (specimen) 02/23/2019 5:06 PM CDT 02/23/2019 5:58 PM CDT us Carlos Rojo MD LAB BLOOD ORDERABLE S Final Result [address] [place] [address] * (ABNORMAL) CBC with auto differential (02/23/2019 5:06 PM CDT) WBC 3.8 3.8 - 9.9 K/cumm [facility] Hgb 9.9(L) 13.0 - 17.5 g/dL [facility] Hct 29.9(L) 38.9 - 50.3 % [facility] Plt 80(L) 150 - 400 K/cumm [facility] MPV 11.0 9.1 - 12.3 fL [facility] RBC 2.96(L) 4.30 - 5.80 M/cumm [facility] MCV 101.0(H) 81.3 - 96.4 fL [facility] MCH 33.4(H) 27.1 - 33.3 pg [facility] MCHC 33.1 32.3 - 35.7 g/dL [facility] RDW CV 14.0 11.1 - 14.9 % [facility] RDW SD 51.5(H) 35.7 - 48.1 fL [facility] NRBC abs 0.00 0.00 - 0.01 K/cumm [facility] Blood specimen (specimen) 02/23/2019 5:06 PM CDT 02/23/2019 5:58 PM CDT us Carlos Rojo MD LAB BLOOD ORDERABLE S Final Result [facility] [address] [place] [address] * Differential, auto (02/23/2019 5:18 AM CDT) Pathologist [facility] Neutrophil abs 2.1 1.7 - 6.5 K/cumm [facility] Imm gran abs 0.0 0.0 - 0.1 K/cumm [facility] Lymphocyte abs 0.8 0.8 - 3.3 K/cumm [facility] Monocyte abs 0.3 0.2 - 0.8 K/cumm [facility] Eosinophil abs 0.1 0.0 - 0.5 K/cumm [facility] Basophil abs 0.0 0.0 - 0.1 K/cumm [facility] Neutrophil pct 60.2 % [facility] Comment: Interpretive Data Percent cell count reference ranges are not reported, since discordance with absolute values may lead to misinterpretation of CBC data. Current Interpretive Data was last revised on 2017. Imm gran pct 0.0 % [facility] Comment: Interpretive Data Percent cell count reference ranges are not reported, since discordance with absolute values may lead to misinterpretation of CBC data. Current Interpretive Data was last revised on 2017. Lymphocyte pct 24.6 % [facility] Comment: Interpretive Data Percent cell count reference ranges are not reported, since discordance with absolute values may lead to misinterpretation of CBC data. Current Interpretive Data was last revised on 2017. Monocyte pct 9.9 % [facility] Comment: Interpretive Data Percent cell count reference ranges are not reported, since discordance with absolute values may lead to misinterpretation of CBC data. Current Interpretive Data was last revised on 2017. Eosinophil pct 4.1 % [facility] Comment: Interpretive Data Percent cell count reference ranges are not reported, since discordance with absolute values may lead to misinterpretation of CBC data. Current Interpretive Data was last revised on 2017. Basophil pct 1.2 % [facility] Comment: Interpretive Data Percent cell count reference ranges are not reported, since discordance with absolute values may lead to misinterpretation of CBC data. Current Interpretive Data was last revised on 2017. Blood specimen (specimen) 02/23/2019 5:18 AM CDT 02/23/2019 5:50 AM CDT us Carlos Rojo MD LAB BLOOD ORDERABLE S Final Result [facility] [address] [place] [address] * (ABNORMAL) CBC with auto differential (02/23/2019 5:18 AM CDT) WBC 3.4(L) 3.8 - 9.9 K/cumm [facility] Hgb 9.8(L) 13.0 - 17.5 g/dL [facility] Hct 29.9(L) 38.9 - 50.3 % [facility] Plt 80(L) 150 - 400 K/cumm [facility] MPV 10.7 9.1 - 12.3 fL [facility] RBC 2.96(L) 4.30 - 5.80 M/cumm [facility] MCV 101.0(H) 81.3 - 96.4 fL [facility] MCH 33.1 27.1 - 33.3 pg [facility] MCHC 32.8 32.3 - 35.7 g/dL [facility] RDW CV 14.0 11.1 - 14.9 % [facility] RDW SD 51.8(H) 35.7 - 48.1 fL [facility] NRBC abs 0.00 0.00 - 0.01 K/cumm [facility] Blood specimen (specimen) 02/23/2019 5:18 AM CDT 02/23/2019 5:50 AM CDT Carlos Rojo MD LAB BLOOD ORDERABLE S Final Result Performing Organization Address City/[facility] Co de Phone Number [address] [address] * Phosphorus (02/23/2019 5:18 AM CDT) Phosphorus, pl 3.7 2.3 - 4.5 mg/dL [facility] Blood specimen (specimen) 02/23/2019 5:18 AM CDT 02/23/2019 5:49 AM CDT Carlos Rojo MD LAB BLOOD ORDERABLE S Final Result Performing Organization Address City/[facility] Co de Phone Number [address] [address] * Magnesium (02/23/2019 5:18 AM CDT) Magnesium 1.8 1.4 - 2.5 mg/dL [facility] Blood specimen (specimen) 02/23/2019 5:18 AM CDT 02/23/2019 5:49 AM CDT Carlos Rojo MD LAB BLOOD ORDERABLE S Final Result Performing Organization Address City/[facility]/ZIP Co de Phone Number [place] [address] * (ABNORMAL) Basic metabolic panel (02/23/2019 5:18 AM CDT) [facility] Sodium 140 135 - 145 mmol/L [facility] Potassium, pl 3.7 3.3 - 4.9 mmol/L [facility] Chloride 105 97 - 110 mmol/L [facility] CO2 29 22 - 32 mmol/L [facility] Anion gap 6 2 - 15 mmol/L [facility] BUN 8 8 - 25 mg/dL [facility] Creatinine 0.79(L) 0.80 - 1.30 mg/dL [facility] Glucose 112 70 - 199 mg/dL [facility] Comment: Interpretive Data Fasting glucose >/= 126 [...] 2017. Calcium 8.5 8.5 - 10.3 mg/dL [facility] Blood specimen (specimen) 02/23/2019 5:18 AM CDT 02/23/2019 5:49 AM CDT Carlos Rojo MD LAB BLOOD ORDERABLE S Final Result Performing Organization Address [facility] Co de Phone Number [place] [address] * Differential, auto (02/22/2019 5:30 PM CDT) Neutrophil abs 1.7 1.7 - 6.5 K/cumm [facility] Imm gran abs 0.0 0.0 - 0.1 K/cumm [facility] Lymphocyte abs 0.9 0.8 - 3.3 K/cumm [facility] Monocyte abs 0.4 0.2 - 0.8 K/cumm [facility] Eosinophil abs 0.1 0.0 - 0.5 K/cumm [facility] Basophil abs 0.0 0.0 - 0.1 K/cumm [facility] Neutrophil pct 55.2 % [facility] Comment: Interpretive Data Percent cell count reference ranges are not reported, since discordance with absolute values may lead to misinterpretation of CBC data. Current Interpretive Data was last revised on 2017. Imm gran pct 0.3 % [facility] Comment: Interpretive Data Percent cell count reference ranges are not reported, since discordance with absolute values may lead to misinterpretation of CBC data. Current Interpretive Data was last revised on 2017. Lymphocyte pct 27.5 % [facility] Comment: Interpretive Data Percent cell count reference ranges are not reported, since discordance with absolute values may lead to misinterpretation of CBC data. Current Interpretive Data was last revised on 2017. Monocyte pct 11.5 % [facility] Comment: Interpretive Data Percent cell count reference ranges are not reported, since discordance with absolute values may lead to misinterpretation of CBC data. Current Interpretive Data was last revised on 2017. Eosinophil pct 4.5 % [facility] Comment: Interpretive Data Percent cell count reference ranges are not reported, since discordance with absolute values may lead to misinterpretation of CBC data. Current Interpretive Data was last revised on 2017. Basophil pct 1.0 % [facility] Comment: Interpretive Data Percent cell count reference ranges are not reported, since discordance with absolute values may lead to misinterpretation of CBC data. Current Interpretive Data was last revised on 2017. Blood specimen (specimen) 02/22/2019 5:30 PM CDT 02/22/2019 5:43 PM CDT us Carlos Rojo MD LAB BLOOD ORDERABLE S Final Result Performing Organization Address [facility]/ZIP Co de Phone Number [facility] [address] [place] [address] * (ABNORMAL) CBC with auto differential (02/22/2019 5:30 PM CDT) WBC 3.1(L) 3.8 - 9.9 K/cumm [facility] Hgb 9.4(L) 13.0 - 17.5 g/dL [facility] Hct 28.5(L) 38.9 - 50.3 % [facility] Plt 52(L) 150 - 400 K/cumm [facility] MPV 11.6 9.1 - 12.3 fL [facility] RBC 2.84(L) 4.30 - 5.80 M/cumm [facility] MCV 100.4(H) 81.3 - 96.4 fL [facility] MCH 33.1 27.1 - 33.3 pg [facility] MCHC 33.0 32.3 - 35.7 g/dL [facility] RDW CV 14.2 11.1 - 14.9 % [facility] RDW SD 52.3(H) 35.7 - 48.1 fL [facility] NRBC abs 0.00 0.00 - 0.01 K/cumm [facility] Blood specimen (specimen) 02/22/2019 5:30 PM CDT 02/22/2019 5:43 PM CDT Carlos Rojo MD LAB BLOOD ORDERABLE S Final Result [facility] [address] [place] [address] * Blood culture Blood (02/22/2019 12:42 PM CDT) Report Final Report: No growth [facility] Blood specimen (specimen) 02/22/2019 12:42 PM CDT [...] organism identification may be performed using the PhotoSolarigene Gram-Positive Blood Culture Assay. This assay detects microbial DNA in positive blood culture broth via hybridization of target DNA to capture oligonucleotides on a microarray. This assay has been cleared by the [place] Food and Drug Administration and its performance characteristics have been verified by the [facility]. 5. For questions about this culture, contact the Microbiology Laboratory at [phone]. Interpretive data was last revised on 2018. Carlos Rojo MD LAB MICROBIOLOGY - GENERAL ORDERABLES Final Result [facility] [address] [place] [address] * Blood culture Blood (02/22/2019 12:42 PM [...] organism identification may be performed using the PhotoSolarigene Gram-Positive Blood Culture Assay. This assay detects microbial DNA in positive blood culture broth via hybridization of target DNA to capture oligonucleotides on a microarray. This assay has been cleared by the [place] Food and Drug Administration and its performance characteristics have been verified by the [facility]. 5. For questions about this culture, contact the Microbiology Laboratory at [phone]. Interpretive data was last revised on 2018. Carlos Rojo MD LAB MICROBIOLOGY - GENERAL ORDERABLES Final Result [facility] [address] [place] [address] * Hepatitis B surface antibody (immune status) (02/22/2019 12:42 PM CDT) [facility] HBsAb (immune status) Nonreactive [facility] Comment: [...] GENERAL ORDERABLES Edited Result - Final [facility] [place] [address] * TRANSTHORACIC ECHO (TTE) COMPLETE W DOPPLER/CF WO CONTRAST (02/22/2019 11:57 AM CDT) Anatomical Region Laterality Modality Ultrasound 02/22/2019 11:1 5 AM CDT Narrative 02/22/2019 12:10 PM CDT Patient name: Chester Dubose Date of test: 02/22/2019 Type of test: TTE w/Doppler [facility] #: [id number] Date of : 1970 (M) Glassware Maker Demonstrator: Beatriz Plata RDCS Referring Physician: CARLOS ROJO MD Contrast Agent: Contrast Administered by: Supervised/Interpreted by: Montrell Michel MD Diagnosis: Dyspnea Pre-Op Location: [facility] Reason for test: Pre TIPS MV Structure: [...] 2=Hypo 3=Akinetic 4=Dyskin./Aneurysm 0=Not visualized) Parasternal Long [place]:MAS=1 BAS=1 MP=1 BP=1 Parasternal Short [place]:MAS=1 MS=1 MD=1 MP=1 ML=1 MA=1 Apical 4 Chambers:=1 MS=1 BS=1 BL=1 MD=1 AL=1 Apical 2 Chambers:AI=1 MD=1 BI=1 BA=1 MA=1 AA=1 LV Global Longitudinal [...] MD By signing this report, the attending chief supply chain officer certifies that he or she has personally supervised and interpreted the echocardiogram and has reviewed and or edited and agrees with the written comments contained within the report. Procedure Note Montrell Michel III, MD - 02/22/2019 Patient name: Chester Dubose Date of test: 02/22/2019 Type of test: TTE /[facility] #: [id number] Date of : 1970 (M) Glassware Maker Demonstrator: Beatriz Plata RDCS Referring Physician: CARLOS ROJO MD Contrast Agent: Contrast Administered by: Supervised/Interpreted by: Montrell Michel MD Diagnosis: Dyspnea Pre-Op Location: [facility] Reason for test: Pre TIPS MV Structure: [...] 2=Hypo 3=Akinetic 4=Dyskin./Aneurysm 0=Not visualized) Parasternal Long [place]:MAS=1 BAS=1 MP=1 BP=1 Parasternal Short [place]:MAS=1 MS=1 MD=1 MP=1 ML=1 MA=1 Apical 4 Chambers:=1 MS=1 BS=1 BL=1 MD=1 AL=1 Apical 2 Chambers:AI=1 MD=1 BI=1 BA=1 MA=1 AA=1 LV Global Longitudinal [...] MD By signing this report, the attending chief supply chain officer certifies that he or she has [...] K/cumm [facility] Neutrophil pct 57.7 % [facility] Comment: Interpretive Data Percent cell count reference ranges are not reported, since discordance with absolute values may lead to misinterpretation of CBC data. Current Interpretive Data was last revised on 2017. Imm gran pct 0.0 % [facility] Comment: Interpretive Data Percent cell count reference ranges are not reported, since discordance with absolute values may lead to misinterpretation of CBC data. Current Interpretive Data was last revised on 2017. Lymphocyte pct 24.6 % [facility] Comment: Interpretive Data Percent cell count reference ranges are not reported, since discordance with absolute values may lead to misinterpretation of CBC data. Current Interpretive Data was last revised on 2017. Monocyte pct 12.1 % [facility] Comment: Interpretive Data Percent cell count reference ranges are not reported, since discordance with absolute values may lead to misinterpretation of CBC data. Current Interpretive Data was last revised on 2017. Eosinophil pct 4.4 % [facility] Comment: Interpretive Data Percent cell count reference ranges are not reported, since discordance with absolute values may lead to misinterpretation of CBC data. Current Interpretive Data was last revised on 2017. Basophil pct 1.2 % [facility] Comment: Interpretive Data Percent cell count reference ranges are not reported, since discordance with absolute values may lead to misinterpretation of CBC data. Current Interpretive Data was last revised on 2017. Blood specimen (specimen) 02/22/2019 6:46 AM CDT 02/22/2019 6:54 AM CDT Carlos Rojo MD LAB BLOOD ORDERABLE S Final Result [facility] [address] [place] [address] * (ABNORMAL) CBC with auto differential (02/22/2019 6:46 AM CDT) WBC 3.2(L) 3.8 - 9.9 K/cumm [facility] Hgb 9.1(L) 13.0 - 17.5 g/dL [facility] Hct 27.4(L) 38.9 - 50.3 % [facility] Plt 67(L) 150 - 400 K/cumm [facility] MPV 12.0 9.1 - 12.3 fL [facility] RBC 2.71(L) 4.30 - 5.80 M/cumm [facility] MCV 101.1(H) 81.3 - 96.4 fL [facility] MCH 33.6(H) 27.1 - 33.3 pg [facility] MCHC 33.2 32.3 - 35.7 g/dL [facility] RDW CV 14.6 11.1 - 14.9 % [facility] RDW SD 53.2(H) 35.7 - 48.1 fL [facility] NRBC abs 0.00 0.00 - 0.01 K/cumm [facility] Blood specimen (specimen) 02/22/2019 6:46 AM CDT 02/22/2019 6:54 AM CDT Carlos Rojo MD LAB BLOOD ORDERABLE S Final Result [facility] [address] [place] [address] * (ABNORMAL) Basic metabolic panel (02/21/2019 11:12 PM CDT) Sodium 140 135 - 145 mmol/L [facility] Potassium, pl 3.9 3.3 - 4.9 mmol/L [facility] Comment:Hemolyzed; (++); pot assium value may be falsely elevated by as much as 0.3 - 0.5 mmol/L. Suggest redraw and reanalysis. Chloride 104 97 - 110 mmol/L [facility] CO2 26 22 - 32 mmol/L [facility] Anion gap 10 2 - 15 mmol/L [facility] BUN 13 8 - 25 mg/dL [facility] Creatinine 0.70(L) 0.80 - 1.30 mg/dL [facility] Glucose 115 70 - 199 mg/dL [facility] Comment: Interpretive Data Fasting glucose >/= 126 [...] 2017. Calcium 8.3(L) 8.5 - 10.3 mg/dL [facility] Blood specimen (specimen) 02/21/2019 11:12 PM CDT 02/21/2019 11:34 PM CDT us Carlos Rojo MD LAB BLOOD ORDERABLE S Final Result Performing Organization Address City/[facility]/ZIP Co de Phone Number [facility] [address] [place] [address] * (ABNORMAL) CBC without differential (02/21/2019 11:12 PM CDT) WBC 3.4(L) 3.8 - 9.9 K/cumm [facility] Hgb 9.3(L) 13.0 - 17.5 g/dL [facility] Hct 28.4(L) 38.9 - 50.3 % [facility] Plt 70(L) 150 - 400 K/cumm [facility] MPV 10.9 9.1 - 12.3 fL [facility] RBC 2.77(L) 4.30 - 5.80 M/cumm [facility] MCV 102.5(H) 81.3 - 96.4 fL [facility] MCH 33.6(H) 27.1 - 33.3 pg [facility] MCHC 32.7 32.3 - 35.7 g/dL [facility] RDW CV 14.7 11.1 - 14.9 % [facility] RDW SD 55.3(H) 35.7 - 48.1 fL [facility] NRBC abs 0.00 0.00 - 0.01 K/cumm [facility] Blood specimen (specimen) 02/21/2019 11:12 PM CDT 02/21/2019 11:37 PM CDT us Carlos Rojo MD LAB BLOOD ORDERABLE S Final Result [facility] [address] [place] [address] * (ABNORMAL) CBC without differential (02/21/2019 5:51 PM CDT) WBC 4.1 3.8 - 9.9 K/cumm [facility] Hgb 9.7(L) 13.0 - 17.5 g/dL [facility] Hct 30.2(L) 38.9 - 50.3 % [facility] Plt 64(L) 150 - 400 K/cumm [facility] MPV 10.1 9.1 - 12.3 fL [facility] RBC 2.99(L) 4.30 - 5.80 M/cumm [facility] MCV 101.0(H) 81.3 - 96.4 fL [facility] MCH 32.4 27.1 - 33.3 pg [facility] MCHC 32.1(L) 32.3 - 35.7 g/dL [facility] RDW CV 15.0(H) 11.1 - 14.9 % [facility] RDW SD 55.7(H) 35.7 - 48.1 fL [facility] NRBC abs 0.00 0.00 - 0.01 K/cumm [facility] Blood specimen (specimen) 02/21/2019 5:51 PM CDT 02/21/2019 6:08 PM CDT us Carlos Rojo MD LAB BLOOD ORDERABLE S Final Result [facility] [address] [place] [address] * ECG 12 lead (02/21/2019 3:34 PM CDT) Ventricular Rate EKG/Min 103 BPM [facility] Atrial Rate 103 BPM [facility] [place]-Interval (MSEC) 146 ms [facility] QRS-Interval (MSEC) 78 ms [facility] QT-Interval (MSEC) 394 ms [facility] QTc 516 ms [facility] P [place] 20 degrees [facility] R [place] 17 degrees [facility] T [place] 31 degrees [facility] Diagnosis Sinus tachycardia Possible Left atrial enlargement Borderline ECG When compared with ECG of 21-FEB-2019 05:51, (unconfirmed) Premature ventricular complexes are no longer Present Confirmed by LEA MATHIS M.D ([id number]) on 02/24/2019 11:15:16 AM [facility] 02/21/2019 3:34 PM CDT 02/24/2019 11:15 AM CDT Carlos Rojo MD ECG ORDERABLES Fin al Result Performing Organization Address City/[facility] Co de Phone Number [facility] * Opiates Confirmation, Urine (02/21/2019 2:58 PM CDT) Codeine Conf, Ur Does Not Confirm CutOff 50 ng/mL [facility] 6- Acetylmorphine Conf, Ur Does Not Confirm CutOff 10 ng/mL [facility] Oxycodone Conf, Ur Does Not Confirm CutOff 50 ng/mL [facility] Hydrocodone Conf, Ur Does Not Confirm CutOff 50 ng/mL [facility] Morphine Conf, Ur Confirmed Positive CutOff 50 ng/mL [facility] Hydromorphone Conf, Ur Does Not Confirm CutOff 50 ng/mL [facility] Oxymorphone Conf, Ur Does Not Confirm CutOff 50 ng/mL [facility] Urine 02/21/2019 2:58 PM CDT 02/21/2019 4:26 PM CDT Carlos Rojo MD LAB URINE ORDERABLE S Final Result Performing Organization Address [facility] de Phone Number [facility] [address] [place] [address] * (ABNORMAL) Drugs of Abuse Screen, Urine with Reflex Confirmation (02/21/2019 2:58 PM CDT) Amphetamine, ur Not Detected CutOff 500ng/mL [facility] Comment: Interpretive Data - Amphetamines: ??Samples containing greater than 500 ng/mL d-methamphetamine ??or other cross-reacting amphetamine compounds are reported as positive. ??Amphetamine immunoassays are subject to significant false positive rates due to cross-reactivity of non-amphetamine drugs. Current Interpretive Data was last reviewed 2018. Barbiturates, ur Not Detected CutOff 200ng/mL [facility] Comment: Interpretive Data - Barbiturates: ??Samples [...] 2018. Opiates, ur Detected(A) CutOff 300ng/mL [facility] Comment: Interpretive Data - Opiates: ??Samples containing [...] Phencyclidine, ur Not Detected CutOff 25 ng/mL [facility] Comment: Interpretive Data - Phencyclidine: ??Samples containing greater than 25 ng/mL phencyclidine or other cross-reacting compounds are reported as positive. ??False positive and false negative results are possible. ?? Current Interpretive Data was last reviewed 2018. Urine Creatinine 94 mg/dL [facility] Comment: Interpretive Data Urine Creatinine: < 10 mg/dL is extremely dilute = or > 10 but < 20 mg/dL is dilute = or > 20 mg/dL is normal Current Interpretive Data was last revised on 2017. Urine 02/21/2019 2:58 PM CDT 02/21/2019 2:58 PM CDT Narrative [facility] - 02/21/2019 5:21 PM CDT Drug of Abuse screening is performed by immunoassay for medical purposes only. ??This is not to be used for Pain Management purposes. ??If Detected, confirmation testing will be performed for Amphetamines, Cocaine, Methadone, Opiates, Oxycodone or Phencyclidine. Carlos Rojo MD LAB URINE ORDERABLE S Final Result Performing Organization Address City/State/[facility] Co de Phone Number [facility] [address] [place] [address] * (ABNORMAL) Urinalysis, microscopic only (02/21/2019 2:58 PM CDT) WBC, ur 6-10(A) 0 - 5 /HPF [facility] RBC, ur 0-2 0 - 2 /HPF [facility] Epithelial cells, squamous, ur 1-5 0 - 5 /HPF [facility] Epithelial cells, renal, ur 1-5(A) 0 - 0 /HPF [facility] Bacteria, ur Trace(A) [facility] Mucous, ur Present(A) [facility] Urine 02/21/2019 2:58 PM CDT 02/21/2019 3:13 PM CDT Carlos Rojo MD LAB URINE ORDERABLE S Final Result [facility] [address] [place] [address] * (ABNORMAL) Urinalysis reflex to microscopic and culture Urine (02/21/2019 2:58 PM CDT) Color, ur Yellow Yellow [facility] Clarity, ur Cloudy(A) Clear [facility] Specific gravity, ur 1.020 1.010 - 1.025 [facility] pH, urine 6 [facility] Protein, ur ql Negative Negative [facility] Glucose, ur ql Negative Negative [facility] Ketones, ur Trace Negative [facility] Bilirubin, ur Negative Negative [facility] Blood, ur Negative Negative [facility] Urobilinogen, ur <2.0 <2.0 mg/dL [facility] Nitrite, ur Negative Negative [facility] Leukocyte esterase, ur 1+(A) Negative [facility] Urine 02/21/2019 2:58 PM CDT 02/21/2019 3:13 PM CDT Narrative [facility] - 02/21/2019 3:32 PM CDT ?? Urine pH is affected by diet, medications, systemic acid-base disturbances, and renal tubular function. ??pH may affect urinary stone formation. ??For example, urine pH below 6.0 may help reduce the tendency for calcium phosphate stones and pH greater than 6.0 may reduce the tendency for uric acid stone formation. Source: [employer]. Last revised 06-28-2017 Urine pH is affected by diet, medications, systemic acid-base disturbances, and renal tubular function. ??pH may affect urinary stone formation. ??For example, urine pH below 6.0 may help reduce the tendency for calcium phosphate stones and pH greater than 6.0 may reduce the tendency for uric acid stone formation. Source: [employer]. Last revised 06-28-2017 Carlos Rojo MD LAB MICROBIOLOGY - GENERAL ORDERABLES Final Result Performing Organization Address City/[facility]/ZIP Co de Phone Number [facility] [address] [place] [address] * (ABNORMAL) Protime-INR (02/21/2019 12:55 PM CDT) PT 17.0(H) 8.6 - 13.0 sec [facility] INR 1.56(H) 0.80 - 1.20 [facility] Comment: Interpretive Data Inpatient therapeutic ranges* Atrial fibrillation ?2.0-3.0 INR Venous thrombo-embolism ?2.0-3.0 INR Bioprosthetic heart valve ?* Mechanical heart valve, bileaflet or tilting disk,aortic position ? 2.0-3.0 INR All other,or bileaflet or tilting disk, in mitral position ? 2.5-3.5 INR *See the pharmacy resource directory (PHRED) for an updated copy of the Tool Book at [email or web address]://[email or web address] Current Interpretive Data was last revised 2011. Blood specimen (specimen) 02/21/2019 12:55 PM CDT 02/21/2019 1:03 PM CDT us Carlos Rojo MD LAB BLOOD ORDERABLE S Final Result Performing Organization Address [facility]/ZIP Co de Phone Number [facility] [address] [place] [address] * (ABNORMAL) CBC without differential (02/21/2019 11:48 AM CDT) Pathologist [facility] WBC 4.2 3.8 - 9.9 K/cumm [facility] Hgb 9.5(L) 13.0 - 17.5 g/dL [facility] Hct 29.1(L) 38.9 - 50.3 % [facility] Plt 78(L) 150 - 400 K/cumm [facility] MPV 11.1 9.1 - 12.3 fL [facility] RBC 2.88(L) 4.30 - 5.80 M/cumm [facility] MCV 101.0(H) 81.3 - 96.4 fL [facility] MCH 33.0 27.1 - 33.3 pg [facility] MCHC 32.6 32.3 - 35.7 g/dL [facility] RDW CV 15.1(H) 11.1 - 14.9 % [facility] RDW SD 56.9(H) 35.7 - 48.1 fL [facility] NRBC abs 0.00 0.00 - 0.01 K/cumm [facility] Blood specimen (specimen) 02/21/2019 11:48 AM CDT 02/21/2019 12:06 PM CDT us Carols Rojo MD LAB BLOOD ORDERABLE S Final Result [facility] [address] [place] [address] * X-ray chest 1 view (Portable) (02/21/2019 [...] CDT) Ammonia 115(H) 5 - 50 mcmol/L [facility] Comment:Hemolyzed; result ma y be falsely elevated. Blood specimen (specimen) 02/21/2019 9:41 AM CDT 02/21/2019 10:07 AM CDT Carlos Rojo MD LAB BLOOD ORDERABLE S Final Result Performing Organization Address [facility] Co de Phone Number [address] [address] * Lipase (02/21/2019 9:41 AM CDT) Lipase 37 10 - 99 Units/L [facility] Blood specimen (specimen) 02/21/2019 9:41 AM CDT 02/21/2019 10:07 AM CDT Carlos Rojo MD LAB BLOOD ORDERABLE S Final Result Performing Organization Address [facility] Co de Phone Number [facility] [address] [place] [address] * Check Sample (02/21/2019 9:41 AM CDT) ABO Rh O Positive [facility] HCLL OTHER 02/21/2019 9:41 AM CDT 02/21/2019 10:14 AM CDT us Carlos Rojo MD LAB BLOOD ORDERABLE S Final Result [facility] [address] [place] [address] * US Liver W Complete Doppler (C) [...] by: Leilani Sykes M.D. Carlos Rojo MD [facility] US PROCEDURES F inal Result * Type and screen (02/21/2019 6:28 AM CDT) Xiang, indirect Negative [facility] ABO Rh O Positive [facility] Blood specimen (specimen) 02/21/2019 6:28 AM CDT 02/21/2019 6:41 AM CDT Narrative [facility] - 02/21/2019 7:49 AM CDT Has the patient had Daratumumab (Darzalex) in the past 6 months?->Unknown Carlos Rojo MD LAB BLOOD BANK TEST ORDERABLES Final Result [facility] [address] [place] [address] * Blood culture Blood (02/21/2019 6:28 AM [...] organism identification may be performed using the PhotoSolarigene Gram-Positive Blood Culture Assay. This assay detects microbial DNA in positive blood culture broth via hybridization of target DNA to capture oligonucleotides on a microarray. This assay has been cleared by the [place] Food and Drug Administration and its performance characteristics have been verified by the [facility]. 5. For questions about this culture, contact the Microbiology Laboratory at [phone]. Interpretive data was last revised on 2018. us Carlos Rojo MD LAB MICROBIOLOGY - GENERAL ORDERABLES Final Result [facility] [address] [place] [address] * (ABNORMAL) Blood culture Blood (02/21/2019 6:28 [...] and read back by: DR. TREV RUIZ [phone] on 02/22/2019 07:11:40 by: JOSE MONTE MLS [facility] Direct Specimen Exam Stain: Gram Positive Cocci in clusters Notification of: Gram Positive Cocci in clusters called to and read back by: DR. MIRNA VALLADARES [phone] on 02/22/2019 03:01:37 by: JOSE MONTE MLS Time to culture positivity (anaerobic media): 17.6 hours [facility] Report Final Report: Coagulase negative Staphylococcus species Isolate of questionable significance. ??If a similar isolate is recovered from a second blood culture collected within 3 days of this culture, both will be evaluated and, if determined to be related, antimicrobial susceptibility testing will be performed. (.) [facility] Organism COAGULASE NEGATIVE STAPHYLOCOCCUS SPECIES [facility] Blood specimen (specimen) 02/21/2019 6:28 AM CDT 02/21/2019 6:51 AM CDT Narrative [facility] - 02/27/2019 1:26 PM CDT 1. Blood [...] organism identification may be performed using the PhotoSolarigene Gram-Positive Blood Culture Assay. This assay detects microbial DNA in positive blood culture broth via hybridization of target DNA to capture oligonucleotides on a microarray. This assay has been cleared by the [place] Food and Drug Administration and its performance characteristics have been verified by the [facility]. 5. For questions about this culture, contact the Microbiology Laboratory at [phone]. Interpretive data was last revised on 2018. Carlos Rojo MD LAB MICROBIOLOGY - GENERAL ORDERABLES Final Result [facility] [address] [place] [address] * Differential, auto (02/21/2019 6:04 AM CDT) Neutrophil abs 2.8 1.7 - 6.5 K/cumm [facility] Imm gran abs 0.0 0.0 - 0.1 K/cumm [facility] Lymphocyte abs 1.1 0.8 - 3.3 K/cumm [facility] Monocyte abs 0.7 0.2 - 0.8 K/cumm [facility] Eosinophil abs 0.0 0.0 - 0.5 K/cumm [facility] Basophil abs 0.0 0.0 - 0.1 K/cumm [facility] Neutrophil pct 59.2 % [facility] Comment: Interpretive Data Percent cell count reference ranges are not reported, since discordance with absolute values may lead to misinterpretation of CBC data. Current Interpretive Data was last revised on 2017. Imm gran pct 0.2 % [facility] Comment: Interpretive Data Percent cell count reference ranges are not reported, since discordance with absolute values may lead to misinterpretation of CBC data. Current Interpretive Data was last revised on 2017. Lymphocyte pct 23.3 % [facility] Comment: Interpretive Data Percent cell count reference ranges are not reported, since discordance with absolute values may lead to misinterpretation of CBC data. Current Interpretive Data was last revised on 2017. Monocyte pct 15.3 % [facility] Comment: Interpretive Data Percent cell count reference ranges are not reported, since discordance with absolute values may lead to misinterpretation of CBC data. Current Interpretive Data was last revised on 2017. Eosinophil pct 1.0 % [facility] Comment: Interpretive Data Percent cell count reference ranges are not reported, since discordance with absolute values may lead to misinterpretation of CBC data. Current Interpretive Data was last revised on 2017. Basophil pct 1.0 % [facility] Comment: Interpretive Data Percent cell count reference ranges are not reported, since discordance with absolute values may lead to misinterpretation of CBC data. Current Interpretive Data was last revised on 2017. Blood specimen (specimen) 02/21/2019 6:04 AM CDT 02/21/2019 6:20 AM CDT us Carlos Rojo MD LAB BLOOD ORDERABLE S Final Result [facility] [address] [place] [address] * (ABNORMAL) CBC with auto differential (02/21/2019 6:04 AM CDT) WBC 4.8 3.8 - 9.9 K/cumm [facility] Hgb 10.1(L) 13.0 - 17.5 g/dL [facility] Hct 31.4(L) 38.9 - 50.3 % [facility] Plt 81(L) 150 - 400 K/cumm [facility] MPV 10.7 9.1 - 12.3 fL [facility] RBC 3.05(L) 4.30 - 5.80 M/cumm [facility] MCV 103.0(H) 81.3 - 96.4 fL [facility] MCH 33.1 27.1 - 33.3 pg [facility] MCHC 32.2(L) 32.3 - 35.7 g/dL [facility] RDW CV 15.4(H) 11.1 - 14.9 % [facility] RDW SD 58.4(H) 35.7 - 48.1 fL [facility] NRBC abs 0.00 0.00 - 0.01 K/cumm [facility] Blood specimen (specimen) 02/21/2019 6:04 AM CDT 02/21/2019 6:20 AM CDT Carlos Rojo MD LAB BLOOD ORDERABLE S Final Result [facility] [address] [place] [address] * (ABNORMAL) Protime-INR (02/21/2019 6:04 AM CDT) PT 17.8(H) 8.6 - 13.0 sec [facility] INR 1.63(H) 0.80 - 1.20 [facility] Comment: Interpretive Data Inpatient therapeutic ranges* Atrial fibrillation ?2.0-3.0 INR Venous thrombo-embolism ?2.0-3.0 INR Bioprosthetic heart valve ?* Mechanical heart valve, bileaflet or tilting disk,aortic position ? 2.0-3.0 INR All other,or bileaflet or tilting disk, in mitral position ? 2.5-3.5 INR *See the pharmacy resource directory (PHRED) for an updated copy of the Tool Book at [email or web address] Current Interpretive Data was last revised 2011. Blood specimen (specimen) 02/21/2019 6:04 AM CDT 02/21/2019 6:11 AM CDT Carlos Rojo MD LAB BLOOD ORDERABLE S Final Result Performing Organization Address [facility] de Phone Number [address] [address] * Lactate (02/21/2019 6:04 AM CDT) Lactate 1.5 0.7 - 2.0 mmol/L [facility] Blood specimen (specimen) 02/21/2019 6:04 AM CDT 02/21/2019 6:19 AM CDT Carlos Rojo MD LAB BLOOD ORDERABLE S Final Result Performing Organization Address [facility] de Phone Number [address] [address] * Phosphorus (02/21/2019 6:04 AM CDT) Phosphorus, pl 3.2 2.3 - 4.5 mg/dL [facility] Blood specimen (specimen) 02/21/2019 6:04 AM CDT 02/21/2019 6:19 AM CDT us Carlos Rojo MD LAB BLOOD ORDERABLE S Final Result Performing Organization Address [facility] de Phone Number [address] [address] * Magnesium (02/21/2019 6:04 AM CDT) Magnesium 1.8 1.4 - 2.5 mg/dL [facility] Blood specimen (specimen) 02/21/2019 6:04 AM CDT 02/21/2019 6:19 AM CDT us Carlos Rojo MD LAB BLOOD ORDERABLE S Final Result Performing Organization Address [facility] de Phone Number [facility] [address] [place] [address] * (ABNORMAL) Comprehensive metabolic panel (02/21/2019 6:04 AM CDT) Sodium 145 135 - 145 mmol/L [facility] Potassium, pl 4.9 3.3 - 4.9 mmol/L [facility] Comment:Hemolyzed; (++); pot assium value may be falsely elevated by as much as 0.3 - 0.5 mmol/L. Suggest redraw and reanalysis. Chloride 111(H) 97 - 110 mmol/L [facility] CO2 27 22 - 32 mmol/L [facility] Anion gap 7 2 - 15 mmol/L [facility] BUN 19 8 - 25 mg/dL [facility] Creatinine 0.70(L) 0.80 - 1.30 mg/dL [facility] Glucose 126 70 - 199 mg/dL [facility] Comment: Interpretive Data Fasting glucose >/= 126 [...] 2017. Calcium 8.2(L) 8.5 - 10.3 mg/dL [facility] Bilirubin, total 2.4(H) 0.1 - 1.2 mg/dL [facility] Protein, pl 6.9 6.5 - 8.5 g/dL [facility] Albumin 3.0(L) 3.5 - 5.0 g/dL [facility] Alk phos 93 40 - 130 Units/L [facility] ALT 44 7 - 55 Units/L [facility] AST 159(H) 10 - 50 Units/L [facility] Comment:Hemolyzed; result ma y be falsely elevated. Blood specimen (specimen) 02/21/2019 6:04 AM CDT 02/21/2019 6:19 AM CDT Carlos Rojo MD LAB BLOOD ORDERABLE S Final Result Performing Organization Address [facility] Co de Phone Number [facility] [address] [place] [address] * MRSA culture Nasal (02/21/2019 6:04 AM CDT) Report Final Report: Negative [facility] Nasal 02/21/2019 6:04 AM CDT 02/21/2019 6:13 AM CDT Narrative [facility] - 02/22/2019 7:12 AM CDT Testing performed by [facility] ([phone]). Carlos Rojo MD LAB MICROBIOLOGY - GENERAL ORDERABLES Final Result Performing Organization Address [facility] de Phone Number [facility] [address] [place] [address] * (ABNORMAL) Hepatitis panel, acute (02/21/2019 5:52 AM CDT) Hep A IgM Nonreactive Nonreactive [facility] Comment: Interpretive Data If test is reported as GRAYZONE, new sample should be drawn in two weeks for testing. Current interpretive data was last revised on 2016. Hep B core IgM Nonreactive Nonreactive [facility] Comment: Interpretive Data If test is reported as GRAYZONE, new sample should be drawn for testing. Current interpretive data was last revised on 2016. Hep C Ab Reactive(A) Nonreactive [facility] Comment: Interpretive Data Positive results should be confirmed by a molecular method. If positive, a second separately collected sample should be submitted for Hepatitis C Virus (HCV) RNA Detection and Quantitation by Real-Time Reverse Pipe Fitter Soft Copper-PCR (RT-PCR). Current interpretive data was last revised on 2016. HepBsAg Nonreactive Nonreactive [facility] Blood specimen (specimen) 02/21/2019 5:52 AM CDT 02/21/2019 6:40 AM CDT us Carlos Rojo MD LAB MICROBI OLOGY - GENERAL ORDERABLES Edited Result - Final [facility] [address] [place] [address] documented in this encounter Visit Diagnoses Diagnosis [...] REJI) 0800 (Due - Provider: Gerard Monte, REJI)1400 (Due - Provider: Automatic Transfer Provider) thiamine [...] 0003 (Given - Provider: Isabela Horn RN)0800 ([facility] Hold - Provider: Automatic Transfer Provider - Reason: Patient not available)1020 ([facility] Unhold - Provider: Automatic Transfer Provider)1040 (Given [...] vomiting, Starting on Sun02/21/19 at 1543 0800 ([facility] Hold - Provider: Automatic Transfer Provider - Reason: Patient not available)1020 ([facility] Unhold - Provider: Automatic Transfer Provider) prochlorperazine (COMPAZINE) injection 5 mg 5 mg, intravenous, Administer over 2 Minutes, Every 6 hours PRN, nausea, vomiting, Starting on Sun02/21/19 at 1923 0800 ([facility] Hold - Provider: Automatic Transfer Provider - Reason: Patient not available)1020 ([facility] Unhold - Provider: Automatic Transfer Provider) ramelteon (ROZEREM) tablet 8 mg 8 mg, oral, Nightly PRN, sleep, Starting on Sun02/23/19 at 2243, Indications: Sleep-Onset Insomnia 2256 (Given - Provider: Isabela Horn RN) 0800 ([facility] Hold - Provider: Automatic Transfer Provider - Reason: Patient not available)1020 ([facility] Unhold - Provider: Automatic Transfer Provider)2126 (Given [...] documented as of this encounter Care Teams Aprn Relationship Specialty Start Date End Date No, Physician PCP - General 02/21/19 03/01/19 documented as of this encounter
--- OUTSIDE RECORDS SUMMARY | 2024-06-27 10:36 | XMS_ITS | Encounter Summary ---
Author Organization [facility] Healthcare Address [address] [place] [address] Care Team Providers Care Plane Runner Name Role Phone Unavailable Primary Care Provider Unavailabl e Encounter Details Date Type Department Care Team (Latest Contact Info) Description 10/09/2013 1:09 PM CDT Hospital Encounter [facility] OP Cindy Douglas MD [address] [facility] [address] [place] [address] Chronic hepatitis C (CMS/HCC) (HCC) Social History [...] 10.2 x10 3/ul 10/09/2013 1:[address] [facility] RBC 4.77 4.11 - 5.71 x10 6/ul 10/09/2013 1:[address] [facility] Hemoglobin 15.4 13.0 - 17.0 g/dl 10/09/2013 1:[address] [facility] Hct 43.2 38.2 - 48.5 % 10/09/2013 1:[address] [facility] RES[facility] MCV 90.6 80.0 - 97.0 fl 10/09/2013 1:[address] [facility] MCH 32.3(H) 27.0 - 31.2 pg 10/09/2013 1:29 PM CDT [facility] MCHC 35.6(H) 31.8 - 35.4 g/dl 10/09/2013 1:[address] [facility] HIST[facility]ICAL RESULTS RDW 12.4 11.6 - 14.8 % 10/09/2013 1:[address] [facility] HIST[facility]ICAL RESULTS Plt Count 211 124 - 400 x10 3/ul 10/09/2013 1:29 PM CDT [facility] [place] [facility] MPV 8.8 7.4 - 10.4 fl 10/09/2013 1:[address] [facility] Differential Method AUTOMATED DIFF --------- -- 10/09/2013 1:29 PM CDT [facility] [place] [facility] Neut % 52.7 37.0 - 85.0 % 10/09/2013 1:29 PM CDT [facility] [place] [facility] Immature Gran % 0.1 0.0 - 3.0 % 10/09/2013 1:29 PM CDT [facility] HISTORICAL RESULTS Lymph % 36.6 5.0 - 45.0 % 10/09/2013 1:29 PM T [facility] HISTORICAL RESULTS [place] % 8.7 3.0 - 15.0 % Eos % 1.3 0.0 - 7.0 % 10/09/2013 1:29 PM T [facility] HISTORICAL RESULTS Baso % 0.6 0.0 - 2.0 % 10/09/2013 1:29 PM T [facility] HISTORICAL RESULTS ABSOLUTE COUNTS ABSOLUTE COUNTS --------- -- Absolute Neuts (auto) 4.3 1.7 - 8.7 x10 3/ul Immature Gran # 0.0 0.0 - 0.3 x10 3/ul Absolute Lymphs (auto) 3.0 0.2 - 4.6 x10 3/ul 10/09/2013 1:29 PM T [facility] HISTORICAL RESULTS Absolute Monos (auto) 0.7 0.1 - 1.5 x10 3/ul Absolute Eos (auto) 0.1 0.0 - 0.7 x10 3/ul 10/09/2013 1:29 PM T [facility] HISTORICAL RESULTS Absolute Basos (auto) 0.1 0.0 - 0.2 x10 3/ul 10/09/2013 1:19 PM CDT 10/09/2013 1:27 PM CDT us Cindy Douglas MD LAB BLOOD ORDERABLES Jasmin daniel Result [facility] HISTORICAL RESULTS * Hepatitis C Virus (HCV) RNA, Qualitative, [place]OW (10/09/2013 1:19 PM CDT) Pathologist [facility] HCV RNA Not Detected Not Detected 10/14/2013 11:40 AM CDT [facility] HISTORICAL RESULTS Comment: TEST INFORMATION: Hepatitis C [...] Cellular Tissue-Based Products (HCT/P). ?? Performed by [facility], ?? [address], [facility] [place] [address] ?? [email or web address], Derick Walters MD, Lab. Director ?? 10/09/2013 1:19 PM CDT 10/09/2013 1:27 PM CDT Cindy Douglas MD LAB BLOOD ORDERABLES Jasmin daniel Result [facility] HISTORICAL RESULTS * Hepatitis C (HCV) RNA PCR, quantitative (10/09/2013 1:19 PM CDT) [facility] HBsAb log IU/mL <1.6 () log IU 4 2:19 PM CDT [facility] HISTORICAL RESULTS Comment: INTERPRETIVE INFORMATION: Hepatitis C [...] ?? HCV RNA IU/mL <43 () IU/mL 10/12/2013 2:19 PM CDT [facility] HISTORICAL RESULTS HCV RNA result Not Detected Not Detected 10/12/2013 2:19 PM CDT [facility] HISTORICAL RESULTS HCV RNA See Note () 10/12/2013 2:19 PM CDT [facility] HISTORICAL RESULTS Comment: To download an enhanced report for this test go to: ?? [email or web address] ?? [email or web address] ?? [email or web address] ?? Performed by [facility], ?? [address] [facility] [address] ?? [email or web address], Derick Walters MD, Lab. Director ?? 10/09/2013 1:19 PM CDT 10/09/2013 1:27 PM CDT us Cindy Douglas MD LAB MICROBIOLOGY - GENERA L ORDERABLES Final Result [facility] HISTORICAL RESULTS * Protime-INR (10/09/2013 1:19 PM CDT) PT 13.7 12.2 - 14.8 SECONDS 10/09/2013 1:38 PM CDT [facility] HISTORICAL RESULTS INR 1.02 0.01 - 5.99 10/09/2013 1:38 PM CDT [facility] HISTORICAL RESULTS Comment: Recommended Therapeutic range for [...] ORDERABLES Jasmin l Result Performing Organization Address [facility] de Phone Number [facility] HISTORICAL RESULTS * (ABNORMAL) Hepatic function panel (10/09/2013 1:19 PM CDT) Direct Bilirubin 0.33(H) 0.00 - 0.25 mg/dL 10/09/2013 1:58 PM T [facility] HISTORICAL RESULTS 10/09/2013 1:19 PM CDT 10/09/2013 1:27 PM CDT Cindy Douglas MD LAB BLOOD ORDERABLES Jasmin l Result Performing Organization Address [facility] de Phone Number [facility] HISTORICAL RESULTS * (ABNORMAL) Comprehensive metabolic panel [...] mg/dL AST 23 0 - 40 U/L 10/09/2013 1:58 PM T [facility] HISTORICAL RESULTS ALT 21 0 - 41 U/L 10/09/2013 1:58 PM T [facility] HISTORICAL RESULTS Alkaline Phosphatase 88 40 - 129 U/L 10/09/2013 1:58 PM T [facility] HISTORICAL RESULTS 10/09/2013 1:19 PM CDT 10/09/2013 1:27 PM CDT us Cindy Douglas MD LAB BLOOD ORDERABLES Jasmin l Result [facility] HISTORICAL RESULTS * Drug Screen, Urine (10/09/2013 1:10 PM CDT) Ur Amphetamine Screen NEGATIVE NEGATIVE 10/09/2013 2:12 PM T [facility] HISTORICAL RESULTS Comment: Cutoff Limit: ??1000 ng/mL Note: ??Positive results from this drug screen are unconfirmed. ??Unconfirmed screening results should not be used for non-medical purposes. Ur Barbiturates Screen NEGATIVE NEGATIVE 10/09/2013 2:12 PM T [facility] HISTORICAL RESULTS Comment:Cutoff limit: 200 ng /mL U Benzodiazepines Scrn NEGATIVE NEGATIVE 10/09/2013 2:12 PM T [facility] HISTORICAL RESULTS Comment:Cutoff limit: 300 ng /mL U Cannabinoids Screen NEGATIVE NEGATIVE 10/09/2013 2:12 PM T [facility] HISTORICAL RESULTS Comment:Cutoff Limit: 50 ng/ mL U Cocaine Metab Screen NEGATIVE NEGATIVE 10/09/2013 2:12 PM T [facility] HISTORICAL RESULTS Comment:Cutoff limit: 300 ng /mL Urine Opiates Screen NEGATIVE NEGATIVE 10/09/2013 2:12 PM T [facility] HISTORICAL RESULTS Comment:Cutoff Limit: 300 ng /mL Urine Creatinine/GERMAN 237.0 mg/dL 10/09/2013 2:12 PM T [facility] HISTORICAL RESULTS Comment:If Creatinine is < 4 0 mg/dL, recollection is suggested. 10/09/2013 1:10 PM CDT 10/09/2013 1:38 PM CDT Narrative [facility] HISTORICAL RESULTS - 10/09/2013 2:12 PM CDT us Cindy Douglas MD LAB URINE ORDERABLES Jasmin daniel Result [facility] HISTORICAL RESULTS documented in this encounter Visit Diagnoses Diagnosis Chronic hepatitis C (CMS/HCC) (HCC) Chronic hepatitis C without mention of hepatic coma documented in this encounter Additional Health Concerns Infection Onset Date Last Indicated Resolved Time 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
--- OUTSIDE RECORDS SUMMARY | 2024-06-27 10:36 | XMS_ITS | Encounter Summary ---
Author Organization [facility] Healthcare Address [address] [place] [address] Care Team Providers Care Sheet Metal Apprentice Name Role Phone Unavailable Primary Care Provider Unavailabl e Encounter Details Date Type Department Care Team (Latest Contact Info) Description 04/11/2013 11:29 AM CDT Hospital Encounter [facility] OP Cindy Douglas MD [address] [facility] [address] [place] [address] Need for prophylactic vaccination and inoculation against [...]
--- OUTSIDE RECORDS SUMMARY | 2024-06-27 10:36 | XMS_ITS | Encounter Summary ---
Author Organization [facility] Healthcare Address [address] [place] [address] Care Team Providers Care Photographic Plate Maker Name Role Phone Unavailable Primary Care Provider Unavailabl e Encounter Details Date Type Department Care Team (Late st Contact Info) Description 12/10/2012 1:12 PM CDT Hospital Encounter [facility] OP Jayne Bowen MD [address] [place] [address] Tobacco use disorder; Personal history of exposure [...] COMPARISON: ??None available FINDINGS: ??There are five [id number] lumbar vertebral bodies. ??For the purpose of [...] COMPARISON: None available FINDINGS: There are five [id number] lumbar vertebral bodies. Forthe purpose of this [...] Laterality Modality Upper Extremities, Hand Right [facility] 12/10/2012 1:14 PM CDT Impressions [...] JA:shaun 02:49 PM 03:25 PM [EOD] Result [facility] Jayne Bowen MD IMG XR PROCEDURES Final Result documented in this encounter Visit Diagnoses Diagnosis Tobacco use disorder Personal history of exposure to asbestos, presenting hazards to health Personal history of contact with and (suspected) exposure to asbestos documented in this encounter
--- OUTSIDE RECORDS SUMMARY | 2024-06-27 10:36 | XMS_ITS | Encounter Summary ---
Author Organization [facility] Address [address] [place] [address] Care Team Providers Care Forecast Analyst Name Role Phone Unavailable Primary Care Provider Unavailabl e Encounter Details Date Type Department Care Team (Latest Contact Info) Description 04/11/2013 9:50 AM CDT Hospital Encounter [facility] OP Cindy Douglas MD [address] [facility] [address] [place] [address] Chronic hepatitis C (CMS/HCC) (HCC); Need for [...] AM CDT) HIV 1/2 Ab NONREACTIVE NONREACTIVE 04/11/2013 11:25 AM CDT [facility] HISTORICAL RESULTS Comment: Note: ??A Non-Reactive result indicates an absence of detectable HIV-1/2 antibodies in the patient. However, it does not rule out recent exposure or past infection with HIV. 04/11/2013 10:5 6 AM CDT 04/11/2013 10:59 AM CDT Cindy Douglas MD LAB BLOOD ORDERABLES Jasmin l Result Performing Organization Address [facility]/State/ZIP Co de Phone Number [facility] HISTORICAL RESULTS * AMSSIEL reflex to quantitative (04/11/2013 10:55 AM CDT) [facility] MASSIEL Screen None Detected None Detected 04/13/2013 8:12 AM CDT [facility] HISTORICAL RESULTS Comment: No antibodies [...] and speckled MASSIEL-IFA patterns. ?? Performed by [employer], ?? [address] [facility] [address] ?? www.[employer], Derick Walters MD, Lab. Director ?? 04/11/2013 10:5 5 AM CDT 04/11/2013 10:59 AM CDT Cindy Douglas MD LAB BLOOD ORDERABLES Jasmin l Result [facility] HISTORICAL RESULTS * (ABNORMAL) CBC with auto differential (04/11/2013 10:55 AM CDT) [facility] WBC 5.7 4.6 - 10.2 x10 3/ul 04/11/2013 11:18 AM CDT [facility] HISTORICAL RESULTS RBC 4.76 4.11 - 5.71 x10 6/ul 04/11/2013 11:18 AM CDT [facility] HISTORICAL RESULTS Hemoglobin 15.4 13.0 - 17.0 g/dl 04/11/2013 11:18 AM [facility] Hct 44.6 38.2 - 48.5 % MCV 93.7 80.0 - 97.0 fl 04/11/2013 11:18 AM [facility] MCH 32.4(H) 27.0 - 31.2 pg 04/11/2013 11:18 AM [facility] HIST[facility] RESULTS MCHC 34.5 31.8 - 35.4 g/dl 04/11/2013 11:18 AM [facility] HISTOR[facility] RESULTS RDW 13.5 11.6 - 14.8 % 04/11/2013 11:18 AM [facility]IST[facility] RESULTS Plt Count 197 124 - 400 x10 3/ul 04/11/2013 11:18 AM [facility] RESULTS MPV 9.5 7.4 - 10.4 fl 04/11/2013 11:18 AM [facility] Differential Method AUTOMATED DIFF --------- -- 04/11/2013 11:18 AM [facility]IST[facility] RESULTS Neut % 41.9 37.0 - 85.0 % 04/11/2013 11:18 AM [facility]ULTS Immature Gran % 0.2 0.0 - 3.0 % 04/11/2013 11:18 AM [facility] HISTORICAL RESULTS Lymph % 46.9(H) 5.0 - 45.0 % 04/11/2013 11:18 AM [facility] HISTORICAL RESULTS [place] % 8.0 3.0 - 15.0 % 04/11/2013 11:18 AM [facility] HISTOR[facility] RESULTS Eos % 2.3 0.0 - 7.0 % 04/11/2013 11:18 AM [facility] HISTORICAL RESULTS Baso % 0.7 0.0 - 2.0 % 04/11/2013 11:18 AM [facility] HIST[facility] RESULTS ABSOLUTE COUNTS ABSOLUTE COUNTS --------- -- 04/11/2013 11:18 AM [facility]IST[facility] RESULTS Absolute Neuts (auto) 2.4 1.7 - 8.7 x10 3/ul 04/11/2013 11:18 AM CDT [facility] HISTORICAL RESULTS Immature Gran # 0.0 0.0 - 0.3 x10 3/ul 04/11/2013 11:18 AM T [facility] HISTORICAL RESULTS Absolute Lymphs (auto) 2.7 0.2 - 4.6 x10 3/ul 04/11/2013 11:18 AM T [facility] HISTORICAL RESULTS Absolute Monos (auto) 0.5 0.1 - 1.5 x10 3/ul 04/11/2013 11:18 AM CDT [facility] HISTORICAL RESULTS Absolute Eos (auto) 0.1 0.0 - 0.7 x10 3/ul 04/11/2013 11:18 AM T [facility] HISTORICAL RESULTS Absolute Basos (auto) 0.0 0.0 - 0.2 x10 3/ul 04/11/2013 11:18 AM T [facility] HISTORICAL RESULTS 04/11/2013 10:5 5 AM CDT 04/11/2013 10:59 AM CDT Cindy Douglas MD LAB BLOOD ORDERABLES Jasmin daniel Result [facility] HISTORICAL RESULTS * (ABNORMAL) Hepatitis C Virus (HCV) RNA, Qualitative, WILLOW (04/11/2013 10:55 AM CDT) HCV RNA Detected( H) Not Detected 04/15/2013 11:00 AM T [facility] HISTORICAL RESULTS Comment: TEST INFORMATION: Hepatitis C [...] Cellular Tissue-Based Products (HCT/P). ?? Performed by [employer], ?? [address] [facility] [place] [address] ?? www.[employer], Derick Walters MD, Lab. Director ?? 04/11/2013 10:5 5 AM CDT 04/11/2013 10:59 AM CDT Cindy Douglas MD LAB BLOOD ORDERABLES Jasmin daniel Result [facility] HISTORICAL RESULTS * HCV GENOTYPING BY SEQUENCING (04/11/2013 10:55 AM CDT) HCV genotype 1a or 1b () 04/14/2013 10:37 AM CDT [facility] HISTORICAL RESULTS Comment: Cannot be further subtyped into Type 1a or Type 1b due to ?? high conservation of the 5 untranslated region of the HCV ?? genome. ??In addition, Type 6 virus may be misclassified as ?? Type 1 in some cases. ?? INTERPRETIVE INFORMATION: ??Hepatitis C Genotyping ?? Hepatitis C viral RNA is tested using reverse case finishing machine adjuster ?? polymerase chain reaction (RT-PCR) to amplify a specific ?? portion of the 5' untranslated region (5' UTR) of the viral ?? genome. The amplified nucleic acid is sequenced ?? bi-directionally using dye-terminator chemistry (iFlipd). ?? Sequencing data is compared to a [...] ?? Test developed and characteristics determined by [facility]. See Compliance Statement B: [employer]/ ?? Performed by [employer], ?? [address] [facility] [place] [address] ?? www.[employer], Derick Walters MD, Lab. Director ?? 04/11/2013 10:5 5 AM CDT 04/11/2013 10:59 AM CDT Cindy Douglas MD LAB BLOOD ORDERABLES Jasmin l Result Performing Organization Address [facility] de Phone Number [facility] HISTORICAL RESULTS * Protime-INR (04/11/2013 10:55 AM CDT) PT 14.7 12.2 - 14.8 SECONDS 04/11/2013 11:14 AM CDT [facility] HISTORICAL RESULTS INR 1.12 0.01 - 5.99 04/11/2013 11:14 AM CDT [facility] ORDERABLES Jasmin l Result Performing Organization Address [facility] de Phone Number [facility] HISTORICAL RESULTS * (ABNORMAL) Hepatitis panel, acute (04/11/2013 10:55 AM CDT) HepBsAg NONREACT NONREACTIVE 04/11/2013 12:40 PM CDT [facility] HISTORICAL RESULTS Comment: [employer] using CHRISTOPHER (chemiluminescent immunoassay) technology. NONREACTIVE: IgM antibodies to Hepatitis B Surface antigen not detected. REACTIVE: IgM antibodies to Hepatitis B Surface antigen detected. Reactive results will be confirmed by neutralization testing. HBsAb (immune status) NONREACT NONREACTIVE 04/11/2013 12:39 PM CDT [facility] HISTORICAL RESULTS Comment: [employer]ens [employer] using CHRISTOPHER (chemiluminescent immunoassay) technology. NONREACTIVE: IgM antibodies to Hepatitis B Surface antibody not detected. REACTIVE: IgM antibodies to Hepatitis B Surface antibody detected. Hep B core IgM NONREACT NONREACTIVE 3 12:40 PM CDT [facility] HISTORICAL RESULTS Comment: Siemens Cent[employer]XP using CHRISOTPHER (chemiluminescent immunoassay) technology. NONREACTIVE: IgM antibodies to Hepatitis B Core antigen not detected. EQUIVOCAL: IgM antibodies to Hepatitis B Core antigen may or may not be present. Obtain a ??new specimen and retest. REACTIVE: IgM antibodies to Hepatitis B Core antigen detected. Hep A IgM NONREACT NONREACTIVE 04/11/2013 12:40 PM CDT [facility] HISTORICAL RESULTS Comment: Siemens CentaurXP using CHRISTOPHER (chemiluminescent immunoassay) technology. NONREACTIVE: IgM antibodies to Hepatitis A not detected. This does not exclude possibility of exposure to Hepatitis A or early acute infection. EQUIVOCAL:IgM antibodies to Hepatitis A may or may not be present. Suggest recollection and retest. REACTIVE: Antibodies to Hepatitis A detected. Hep C Ab REACTIVE(H) NONREACTIVE 04/11/2013 12:40 PM CDT [facility] HISTORICAL RESULTS Comment: Siemens CentaurXP [...] Hepatitis C detected. Hepatitis C Virus Note 04/11/2013 12:40 PM CDT [facility] HISTORICAL RESULTS Comment:NO CONFIRMATION TEST ING REQUIRED DUE TO HIGH REACTIVITY. 04/11/2013 10:5 5 AM CDT 04/11/2013 10:59 AM CDT us Cindy Douglas MD LAB MICROBIOLOGY - GENERA L ORDERABLES Final Result [facility] HISTORICAL RESULTS * TSH (04/11/2013 10:55 AM CDT) TSH 1.28 0.27 - 4.20 uIU/mL 04/11/2013 11:44 AM CDT [facility] HISTORICAL RESULTS 04/11/2013 10:5 5 AM CDT 04/11/2013 10:59 AM CDT Cindy Douglas MD LAB BLOOD ORDERABLES Jasmin l Result Performing Organization Address [facility] Co de Phone Number [facility] HISTORICAL RESULTS * hCG, (beta) tumor marker (04/11/2013 10:55 AM CDT) BETA HCG TUMOR MARKER < 0.1 0.0 - 2.0 mIU/mL 04/11/2013 11:52 AM CDT [facility] HISTORICAL RESULTS Comment: This result cannot be interpreted as absolute evidence of the presence or absense of malignant disease. This assay is intended for the early detection of and is not labeled for use as a tumor marker. 04/11/2013 10:5 5 AM CDT 04/11/2013 10:59 AM CDT Cindy Douglas MD LAB BLOOD ORDERABLES Jasmin l Result Performing Organization Address [facility] de Phone Number [facility] HISTORICAL RESULTS * Ferritin (04/11/2013 10:55 AM CDT) Ferritin 397.6 30.0 - 400.0 ng/mL 04/11/2013 11:44 AM CDT [facility] HISTORICAL RESULTS 04/11/2013 10:5 5 AM CDT 04/11/2013 10:59 AM CDT Cindy Douglas MD LAB BLOOD ORDERABLES Jasmin l Result Performing Organization Address [facility] de Phone Number [facility] HISTORICAL RESULTS * (ABNORMAL) Iron profile w/ IBC (04/11/2013 10:55 AM CDT) Iron 238(H) 59 - 158 ug/dL 04/11/2013 11:39 AM CDT [facility] HISTORICAL RESULTS Comment:Fasting specimen pre ferred TIBC 310 228 - 428 ug/dL 04/11/2013 11:39 AM CDT [facility] HISTORICAL RESULTS Transferrin % Sat 77(H) 20 - 50 % 04/11/2013 11:39 AM CDT [facility] HISTORICAL RESULTS 04/11/2013 10:5 5 AM CDT 04/11/2013 10:59 AM CDT Cindy Douglas MD LAB BLOOD ORDERABLES Jasmin l Result [facility] HISTORICAL RESULTS * (ABNORMAL) Uric acid (04/11/2013 10:55 AM CDT) Uric Acid 7.8(H) 3.4 - 7.0 mg/dL 04/11/2013 11:39 AM CDT [facility] HISTORICAL RESULTS 04/11/2013 10:5 5 AM CDT 04/11/2013 10:59 AM CDT Cindy Douglas MD LAB BLOOD ORDERABLES Jasmin l Result Performing Organization Address [facility] Co de Phone Number [facility] HISTORICAL RESULTS * Hepatic function panel (04/11/2013 10:55 AM CDT) Direct Bilirubin < 0.20 0.00 - 0.25 mg/dL 04/11/2013 11:39 AM CDT [facility] HISTORICAL RESULTS 04/11/2013 10:5 5 AM CDT 04/11/2013 10:59 AM CDT Cindy Douglas MD LAB BLOOD ORDERABLES Jasmin l Result Performing Organization Address [facility] Co de Phone Number [facility] HISTORICAL RESULTS * (ABNORMAL) Comprehensive metabolic panel (04/11/2013 10:55 AM CDT) Sodium 139 135 - 145 mmol/L 04/11/2013 11:39 AM CDT [facility] HISTORICAL RESULTS Potassium 4.4 3.3 - 5.1 mmol/L Chloride 101 96 - 108 mmol/L Carbon Dioxide 30 22 - 32 mmol/L Anion Gap 8 Glucose 98 70 - 110 mg/dL BUN 9 6 - 20 mg/dL Creatinine 0.9 0.5 - 1.3 mg/dL Kidney Disease Stage [...] @ Calcium 9.8 8.6 - 10.2 mg/dL Comment: Reporting units changed on 04-03-2013 from mmol/L to mg/dL. Compare to previous results with caution. Total Protein 8.4 6.4 - 8.4 g/dL Albumin 4.4 3.5 - 5.2 g/dL Globulin 4.0(H) 2.3 - 3.5 gm/dL Albumin/Globulin Ratio 1.1 1.1 - 1.8 04/11/2013 11:39 AM T [facility] HISTORICAL RESULTS Total Bilirubin 0.5 0.0 - 1.2 mg/dL AST 86(H) 0 - 38 U/L ALT 106(H) 0 - 41 U/L Alkaline Phosphatase 86 40 - 129 U/L 04/11/2013 10:5 5 AM CDT 04/11/2013 10:59 AM CDT us Cindy Douglas MD LAB BLOOD ORDERABLES Jasmin daniel Result [facility] HISTORICAL RESULTS * Drug Screen, Urine (04/11/2013 10:27 AM CDT) Ur Amphetamine Screen NEGATIVE NEGATIVE Comment: [...] mL U Cocaine Metab Screen NEGATIVE NEGATIVE 04/11/2013 11:35 AM CDT [facility] HISTORICAL RESULTS Comment:Cutoff limit: 300 ng /mL Urine Opiates Screen NEGATIVE NEGATIVE 04/11/2013 11:35 AM CDT [facility] HISTORICAL RESULTS Comment:Cutoff Limit: 300 ng /mL Urine Creatinine/GERMAN 256.0 mg/dL 04/11/2013 11:35 AM CDT [facility] HISTORICAL RESULTS Comment:If Creatinine is < 4 0 mg/dL, recollection is suggested. 04/11/2013 10:2 7 AM CDT 04/11/2013 10:47 AM CDT us Cindy Douglas MD LAB URINE ORDERABLES Jasmin daniel Result [facility] HISTORICAL RESULTS * US RUQ (04/11/2013 9:56 [...] House M.D. : 12:35 PM 12:35 PM [facility] [EOD] Narrative 04/11/2013 12:38 PM CDT EXAMINATION: ??Right upper quadrant abdominal ultrasound HISTORY: ??42-year-old male with chronic hepatitis C TECHNIQUE: ??Real time chavis-scale and color and spectral Doppler ultrasound of the abdominal right upper quadrant was performed. COMPARISON: ??None available FINDINGS: ?? No cholelithiasis, gallbladder wall thickening, or pericholecystic fluid is seen. ??Sonographic Anders's sign is negative according to the prototype special build. The common bile duct is normal in [...] Anders's sign is negative according to the prototype special build.The common bile duct is normal in caliber, [...] House M.D. MD: 12:35 PM 12:35 PM [facility] [EOD] us Cindy Douglas MD [facility] PROCEDURES Final R esult documented in this [...]
--- OUTSIDE RECORDS SUMMARY | 2024-06-27 10:36 | XMS_ITS | Encounter Summary ---
Author Organization [facility] Healthcare Address [address] [place] [id number] Care Team Providers Care Diffusion Operator Name Role Phone Jayne Bowen MD Primary Care Provider + Encounter Details Date Type Department Care Team (Late st Contact Info) Description 09/24/2018 12:13 PM CDT - 09/24/2018 6:31 PM CD[place] [address] Loki Mcwilliams MD [address] [place] [address] [place] [address] Discharge Disposition: Discharge to home or self [...] CDT) Ethyl Alcohol 307 mg/dL [facility] Comment: % = mg/dL x .001 09/24/2018 1:31 PM CDT 09/24/2018 1:39 PM CDT Narrative Resulting Agency Comment ER Loki Mcwilliams MD LAB BLOOD ORDERABLES Final Result Performing Organization Address [facility] Co de Phone Number [address] [phone] * Salicylate level (09/24/2018 1:31 PM CDT) Salicylates 6 0 - 29 mg/dL [facility] 09/24/2018 1:31 PM CDT 09/24/2018 1:39 PM CDT Narrative Resulting Agency Comment ER Loki Mcwilliams MD LAB BLOOD ORDERABLES Final Result Performing Organization Address [facility] Co de Phone Number [address] [phone] * (ABNORMAL) Acetaminophen level (09/24/2018 1:31 PM CDT) Acetaminophen <5.0(L) 10.0 - 30.0 ug/mL [facility] Comment: Acetaminophen concentrations greater than [...] BLOOD ORDERABLES Final Result Performing Organization Address [facility] Co de Phone Number [address] [phone] * TSH (09/24/2018 1:31 PM CDT) TSH 2.16 0.27 - 4.20 uIU/mL [facility] 09/24/2018 1:31 PM CDT 09/24/2018 1:39 PM CDT Narrative Resulting Agency Comment ER us Loki Mcwilliams MD LAB BLOOD ORDERABLES Final Result [facility] [address] [place] [address], [facility] [phone] * (ABNORMAL) Comprehensive metabolic panel (09/24/2018 1:31 PM CDT) Sodium 142 135 - 145 mmol/L [facility] Potassium 3.2(L) 3.3 - 5.1 mmol/L [facility] Chloride 104 96 - 108 mmol/L [facility] Carbon Dioxide 23 22 - 32 mmol/L [facility] Anion Gap 15 7 - 16 [facility] Glucose 106(H) 70 - 100 mg/dL [facility] BUN 4(L) 8 - 25 mg/dL [facility] Creatinine 0.6 0.5 - 1.3 mg/dL [facility] Comment: NOTE: Estimated GFR (Cockroft-Gault) will NOT be calculated unless patient Height and Weight were entered. Also, Kidney Disease Stage (GFR) and Estimated GFR (Cockroft-Gault) will NOT be calculated if Creatinine result is <0.2. Kidney Disease Stage >90 mL/MIN [facility] Comment: NOTE; ??The GFR is [...] on dialysis Est GFR (Cockcroft-G) 173 ml/MIN [facility] Comment: Estimated GFR(Cockroft-Gault)is used to calculate patient medication dosage Calcium 8.6 8.6 - 10.3 mg/dL [facility] Total Protein 7.8 6.4 - 8.3 g/dL [facility] Albumin 3.5 3.5 - 5.0 g/dL [facility] Globulin 4.3(H) 2.3 - 3.5 gm/dL [facility] Albumin/Globulin Ratio 0.8(L) 1.1 - 1.8 [facility] Total Bilirubin 1.4(H) 0.0 - 1.2 mg/dL [facility] AST 259(H) 0 - 40 U/L [facility] ALT 51(H) 0 - 41 U/L [facility] Alkaline Phosphatase 140(H) 40 - 129 U/L [facility] 09/24/2018 1:31 PM CDT 09/24/2018 1:39 PM CDT Narrative Resulting Agency Comment ER us Loki Mcwilliams MD LAB BLOOD ORDERABLES Final Result [facility] [address] [place] [address], [facility] [phone] * (ABNORMAL) CBC with auto differential (09/24/2018 1:31 PM CDT) WBC 4.7 3.8 - 9.9 X10 3/ul [facility] RBC 4.15(L) 4.30 - 5.80 x10 6/ul [facility] Hemoglobin 10.7(L) 13.0 - 17.5 g/dL [facility] Hct 33.7(L) 38.9 - 50.3 % [facility] MCV 81.2(L) 81.3 - 96.4 fl [facility] MCH 25.8(L) 27.1 - 33.3 pg [facility] MCHC 31.8(L) 32.3 - 35.7 g/dl [facility] RDW 20.8(H) 11.1 - 14.9 % [facility] Plt Count 80(L) 150 - 400 x10 3/ul [facility] MPV 9.8 9.1 - 12.3 fl [facility] Neut % 59.5 % [facility] Immature Gran % 0.2 % [facility] Lymph % 26.2 % [facility] [place] % 10.9 % [facility] Eos % 1.3 % [facility] AUTO BASO % 1.9 % [facility] NEUTROPHIL ABS # 2.8 1.7 - 6.5 x10 3/ul [facility] Immature Gran # 0.0 0.0 - 0.1 x10 3/ul [facility] Absolute Lymphs (auto) 1.2 0.8 - 3.3 x10 3/ul [facility] Absolute Monos (auto) 0.5 0.2 - 0.8 x10 3/ul [facility] Absolute Eos (auto) 0.1 0.0 - 0.5 x10 3/ul [facility] BASOPHIL ABS # 0.1 0.0 - 0.1 x10 3/ul [facility] Nucleat RBC Rel Count 0.0 #/100WBC [facility] NRBC abs 0.00 0.00 - 0.01 x10 3/ul [facility] Absolute Neutrophils 2,800 200 - 8,000 /ul [facility] 09/24/2018 1:31 PM CDT 09/24/2018 1:39 PM CDT Narrative Resulting Agency Comment ER us Loki Mcwilliams MD LAB BLOOD ORDERABLES Final Result [facility] [address] [place] [address], [facility] [phone] * Drug Screen, Urine without Confirmation (09/24/2018 1:14 PM CDT) Pathologist [facility] Amphetamines NOT DETECTED [facility] Comment: This assay uses 500 ng/mL as a cutoff for a positive result. Barbiturates NOT DETECTED [facility] Comment: This assay uses 200 ng/mL as a cutoff for a positive result. Benzodiazepines NOT DETECTED [facility] Comment: This assay uses 100 ng/mL as a cutoff for a positive result. Cannabinoids NOT DETECTED [facility] Comment: This assay uses 50 ng/mL as a cutoff for a positive result. Cocaine DETECTED [facility] Comment: This assay uses 150 ng/mL as a cutoff for a positive result. Opiates NOT DETECTED [facility] Comment: This assay uses 300 ng/mL as a cutoff for a positive result. Urine methadone NOT DETECTED [facility] Comment: This assay uses 300 ng/mL as a cutoff for a positive result. Urine phencyclidine plus NOT DETECTED [facility] Comment: This assay uses 25 ng/mL as a cutoff for a positive result. Oxycodone NOT DETECTED [facility] Comment: This assay uses 100 ng/mL as a cutoff for a positive result. Urine Creatinine/GERMAN 27.0 mg/dL [facility] Comment: If Creatinine is < 40 mg/dL, recollection is suggested. 09/24/2018 1:14 PM CDT 09/24/2018 1:21 PM CDT Narrative [facility] - 09/24/2018 1:59 PM CDT Collected By EM[facility] Resulting Agency Comment ER us Loki Mcwilliams MD LAB URINE ORDERABLES Final Result [facility] [address] [phone] * (ABNORMAL) Urinalysis reflex to microscopic and culture (09/24/2018 1:14 PM CDT) Ur Collection Type CLEAN CATCH [facility] Ur Culture Indicated? C S NOT INDICATED [facility] Urine Color YELLOW YELLOW [facility] Urine Clarity CLEAR CLEAR [facility] Urine Glucose (UA) NORMAL NORMAL mg/dL [facility] Urine Bilirubin NEGATIVE NEGATIVE mg/dl [facility] Urine Ketones NEGATIVE NEGATIVE mg/dL [facility] Ur Specific [place] 1.003(L) 1.005 - 1.025 [facility] Urine Blood NEGATIVE NEGATIVE mg/dl [facility] Urine pH 7.0 5.0 - 8.0 [facility] Urine Protein NEGATIVE NEGATIVE mg/dL [facility] Urine Urobilinogen NORMAL NORMAL mg/dL [facility] Urine Nitrite NEGATIVE NEGATIVE [facility] Ur Leukocyte Esterase NEGATIVE NEGATIVE Jimmy/ul [facility] Ur Microscopic Review Not Indicated [facility] 09/24/2018 1:14 PM CDT 09/24/2018 1:21 PM CDT Narrative [facility] - 09/24/2018 1:26 PM CDT Indication(s) for ordering ?? Other - enter in comments [facility] Clean catch Resulting Agency Comment ER us Notinfile Unknown LAB MICROBIOLOGY - GENERAL ORD ERABLES Final Result [facility] [address] [phone] * XR Shoulder Left 2 or More Views (09/24/2018 12:00 AM CDT) Anatomical Region Laterality Modality Upper Extremities, Shoulder Left Radi ographic Imaging 09/24/2018 3:17 PM CDT Narrative 09/24/2018 3:17 PM CDT Patient Name: CHESTER BRUMFIELD JR ?Ordering Dr: Loki Mcwilliams MD ?? D.O.B: 1970 ? Exam Date: 09/24/18 ?? 0000 ?? Age: 48 ?Sex: Male ? MR#: [id number] ?? Loc: ? RADIOLOGY REPORT ?? Order #[id number] ?? Radiology ? Shoulder LT 2Vw Min [...] 3:17 PM ?? T: ? Report ID: [id number] ?? Reading Location: ??[id number] ? REPORT ELECTRONICALLY SIGNED IN OTHER VENDOR SYSTEM ?? Resulting Agency Comment E Procedure Note Oskar Stephens MD - 09/24/2018 Patient Name: CHESTER BRUMFIELD JROrdering Dr: Loki Mcwilliams MD, D.O.B: 1970 Exam Date: 09/24/18 0000 Age: 48 Sex: Male MR#: [id number] Loc: RADIOLOGY REPORT Order #[id number] Radiology Shoulder LT 2Vw Min (STANDARD) Signed [...] signed by Oskar PANIAGUA T: Report ID: [id number] Reading Location: [id number] REPORT ELECTRONICALLY SIGNED IN OTHER VENDOR SYSTEM [...] ?? Age: 48 ?Sex: Male ? MR#: [id number] ?? Loc: ? RADIOLOGY REPORT ?? Order #[id number] ?? Radiology ? Obstruction Series AP/UP/Chest ? [...] 2:16 PM ?? T: ? Report ID: [id number] ?? Reading Location: ??[id number] ? REPORT ELECTRONICALLY SIGNED IN OTHER VENDOR SYSTEM ?? Resulting Agency Comment E Procedure Note Gamaliel García MD - 09/24/2018 Patient Name: GER BRUMFIELDDIRK [facility] Dr: Loki Mcwilliams MD D.O.B: 1970 Exam Date: 09/24/18 0000 Age: 48 Sex: Male MR#: [id number] Loc: RADIOLOGY REPORT Order #[id number] Radiology Obstruction Series AP/UP/Chest Signed EXAM DESCRIPTION: [...] signed by Gamaliel PIPER T: Report ID: [id number] Reading Location: [place] [address] REPORT ELECTRONICALLY SIGNED IN OTHER VENDOR SYSTEM Loki Mcwilliams MD IMG XR PROCEDURES Final Re sult documented in this encounter Visit Diagnoses Not on filedocumented in this encounter Additional Health Concerns Infection Onset Date Last Indicated Resolved Time 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
--- OUTSIDE RECORDS SUMMARY | 2024-06-27 10:41 | XMS_ITS | Continuity of Care Document ---
Author Organization [facility] Address [address] [place] [address] [place] [address] Phone Care Team Providers Care Manager Technical Name Role Phone Jose Abdi MD Unavailable Unavailable Allergies, Adverse Reactions, Alerts Substance Reaction Status Criticality No Known Allergies Active No Inform ation Procedures Procedure Date OFFICE/OUTPATIENT VISIT, [facility] Advance Directives Directive Yes / No Effective Date File Name No Information Encounters Encounter Description Practice Location Reason(s) For Visit Diagnoses Date Provider Providers Copied on Encounter OFFICE/OUTPAT IENT VISIT, [facility], [address], [place], [address], tel:[phone] [facility] liver (chief complaint)B PH1 (chief complaint) Hepatic failure without comaCirrhosis of liverBPH w/o lower urinary tract symptom 1 Jin Garcia. [email or web address], [address], [place], [address]. tel:[phone] Family History Family Member Type Diagnosis Age At Onset No Information Payers Payer name Insurance type Covered libertarian ID Authoriza tion(s) No Information Social History [...] a doctor. liver Pt presents to [facility] for new patient visit Pt states that [...] Mental Status Date Cognitive Assessment Orientation - [place] ed to time, place, person, situation.
== END 2024-06-20 06:54 | disposition left against medical advice (07) ==
LOC: ANHED 06:46
PROVIDERS: PCP Internal Medicine
DX: Z53.21 Procedure and treatment not carried out due to patient leaving prior to being seen by health care provider (principal)
CPT/HCPCS: 99199